=== PATIENT | male | born 1955 | race Caucasian/White ===

== ENCOUNTER 2016-07-28 09:18 | Outpatient (CLI) | payer OTHER ==
[~2016-07-28] VITALS: Ht 180.3 cm; Wt 95.5 kg
[~2016-07-28 09:18] MED LIST: ASP81TEC PO; ATOR40TA70 PO; ATR20T PO; BUPR300T PO; CALC-140 PO; CALCIUM + D PO; CHRO1000 PO; CINN1CAP2 PO; CINN500C7 PO; EZET10TA5 PO; FEXO1TAB42 PO; Fluticasone Propionate NS; HYDR1TAB PO; HYDR1TAB86 PO; MAGN400C PO; MTF500T PO; MULT-608 PO; NIAC500T8 PO; OMEG-59 PO; OMEG1CAP51 PO; POTA99TA15 PO; POTASSIUM OTC PO; PRAS10TA6 PO; RABE20TA PO; RANI300T4 PO; SIMV10TA3 PO; TICA90TA PO; VARE1TAB19 PO
[2016-07-28] MEDS ORDERED: MAGN250T13 PO (13:13)
[2016-07-28] MEDS ORDERED: METF500T4 PO (13:13)
[2016-07-28] MEDS ORDERED: MELA1TAB10 PO (13:13)
[2016-07-28] MEDS ORDERED: BUPR300T43 PO (13:13)
[2016-07-28] MEDS ORDERED: CETI10TA17 PO (13:13)
[2016-07-28] MEDS ORDERED: OMEP20TA7 PO (13:13)
[2016-07-28] MEDS ORDERED: FISH1CAP15 PO (13:13)
[2016-07-28] MEDS ORDERED: RT-ALBUINH IH (13:13)
== END 2016-07-28 13:24 ==
LOC: PREOP 09:18
PROVIDERS: ATTEND Surgery
DX: Z01.818 Encounter for other preprocedural examination (principal); Z85.118 Personal history of other malignant neoplasm of bronchus and lung

== ENCOUNTER 2016-07-31 10:29 | Day surgery (SDC) | payer OTHER ==
[~2016-07-31] VITALS: Ht 180.3 cm; Wt 95.5 kg
[~2016-07-31 10:29] MED LIST changes: +BUPR300T43 PO; +CETI10TA17 PO; +FISH1CAP15 PO; +MAGN250T13 PO; +MELA1TAB10 PO; +METF500T4 PO; +OMEP20TA7 PO; +RT-ALBUINH IH
[2016-07-31 10:33] VITALS: BP 122/82
[2016-07-31] MEDS ORDERED: CATHETER FLUSH 10 ML SYR IV PRN (11:00)
[2016-07-31] MEDS ORDERED: ceFAZolin 2 GM/NS 50 ML IV ONE (11:00)
[2016-07-31] MEDS ORDERED: LACTATED RINGERS 1,000 ML IV PRN (11:06)
[2016-07-31] MEDS ORDERED: MIDAZOLAM 2 MG/2 ML (VERSED) VIAL ONE (11:48)
[2016-07-31] MEDS ORDERED: ONDANSETRON 4 MG/2 ML (SDV) Z0FRAN ONE (11:48)
[2016-07-31] MEDS ORDERED: proPOfol 200 MG/20 ML (DIPRIVAN) VIAL IV ONE (11:48)
[2016-07-31] MEDS ORDERED: fentaNYL INJECTION 100 MCG/2 ML AMP ONE (11:48)
[2016-07-31] MEDS ORDERED: LACTATED RINGERS 1,000 ML IV ONE (11:52)
[2016-07-31] MEDS ORDERED: LIDOCAINE PF 2% 10 ML (XYLOCAINE) AMP ONE (11:52)
--- NOTE | 2016-07-31 11:57 | Progress Note-Pre Operative ---
Pre-Operative Progress Note H&P Reviewed The H&P was reviewed, patient examined and no changes noted. Date H&P Reviewed: Jul 31, 2016 Time H&P Reviewed: 11:55 MILE CHOWDHURY DO Jul 31, 2016 11:57
[2016-07-31] MEDS ORDERED: LIDOCAINE/EPI 1%-1:100,000 (XYLOCAINE) 20ML ONE (11:59)
--- NOTE | 2016-07-31 12:36 | Progress Note-Post Operative ---
Post-Operative Progess Note Surgeon (s)/Political Organizer (s) Surgeon MILE CHOWDHURY DO Political Organizer: NONE Pre-Operative Diagnosis HX LUNG CA, Venous insufficiency Post-Operative Diagnosis Same Post-Op Procedure Note Date of Procedure: Jul 31, 2016 Name of Procedure Performed: Port removal Description of the Procedure: port removal Findings of the Procedure none Anesthesia Type IV sedation Estimated blood loss (mL): scant Specimen(s) collected/removed Port and catheter. MILE CHOWDHURY DO Jul 31, 2016 12:36
--- NOTE | 2016-07-31 12:38 | Discharge Inst-Surgical ---
Discharge Inst-Surgical Depart Medication/Instructions New, Converted or Re-Newed RX: Other Patient Instructions Follow up Appt: Make appointment for 1 week. [phone] Instructions: No strenuous activity. May shower in 24 hours, no tub bath or soaking. Use incentive spirometer at home as directed. No Smoking Skin/Wound Care: May remove band-aid in am 4/11 Symptoms to Report: Appetite Changes, Extremity Discoloration, Numbness/Tingling, Swelling Increased , Bleeding Excessive, Eyesight Changes, Pain Increased, Urine Color Change, Constipation(Persistent), Fever over 101 degree F, Pain/Pressure in chest, Urinating Difficulty, Cough Up/Vomit Blood, Heart Beat Irreg/Pounding, Pain/ Pressure in jaw, Vaginal Bleeding Increase, Cramps in feet or legs, Lightheadedness, Pain/Pressure in shoulder, Diarrhea(Persistent), Memory Changes Suddenly, Questions/Concerns, Weight gain consecutive days, Dizziness/ Fainting, Nausea/Vomiting, Shortness of Breath, Weight gain over 2 pounds If questions or concerns contact your physician Or seek help at emergency department. Activity Driving Instructions: You May Drive (not today) Diet Discharge Diet: No Restrictions If Any Problems/Questions/Issu: Contact Your Physician, Go to Emergency Room Skin/Wound Care Infection Signs and Symptoms: Increased Redness, Foul Odor of Wound, Increased Drainage, Skin Itchy or Has a Rash, Increased Swelling, Temperature Above 101 F Stitches/[place]/Dermabond Dis: Dermabond Ice Pack: Ice On and Off Site (as needed for pain) MILE CHOWDHURY DO Jul 31, 2016 12:38
[2016-07-31 13:05] VITALS: BP 97/63
[2016-07-31 13:40] VITALS: BP 112/72
[2016-07-31 13:50] VITALS: BP 112/72
--- NOTE | 2016-08-01 09:36 | OPERATIVE REPORT ---
PROCEDURE PHYSICIAN: MILE HERNANDEZ DATE OF PROCEDURE: 07/31/2016 PREOPERATIVE DIAGNOSIS: 1. Venous insufficiency. 2. History of lung cancer. POSTOPERATIVE DIAGNOSIS: 1. Venous insufficiency. 2. History of lung cancer. PROCEDURE: Removal of port. SURGEON: Dr. Hernandez SUSTAINMENT LOGISTICS ANALYST: None. ANESTHESIA: IV sedation. BLOOD LOSS: Scant. FLUIDS: Per anesthesia. SPECIMEN: Port and catheter. INDICATION FOR THE PROCEDURE: The patient is a 61-year-old male with a history of lung cancer. He had a port placed for venous insufficiency and long-term chemotherapy. He no longer needs that and wants this removed. FINDINGS: The patient had a port in the right anterior chest wall, tunneled up into the right internal jugular removed without any difficulty. PROCEDURE NOTE: After informed consent was obtained patient brought to the operating room, placed on the table in supine position. He was sterilely prepped and draped in the normal fashion. Local lidocaine used to infiltrate the skin above the port as well above the catheter and then made an incision with number 15 blade through the old scar down through skin into subcutaneous tissue, deepened down into the subcutaneous tissue with Bovie electrocautery. Able to visualize the catheter grasped the catheter hemostat and then started dissecting out and then able to grasp a little bit more superior with another hemostat. Held this in place and then carefully started pulling the catheter out, gently pulling able to finally get the catheter completely out. Of note, apparently they had attach the catheter and cut off the distal end so that it started at 40 cm. Once this was removed then did a suture of 3-0 Vicryl [id number] to close off the tunnel from where the catheter was and then started dissecting out the port using Bovie electrocautery, going around removing the port and the capsule with it. Once this was removed, passed it off table, sent to pathologist. The area was then copiously irrigated with saline. Hemostasis obtained and then closed the deep tissue with a 3-0 Vicryl suture and then closed the skin with 4-0 undyed Monocryl 3 interrupted subcutaneous stitches. The area was clean and dried. Dermabond placed. As well as a bandage. The patient was then transferred to recovery room in stable condition. Sponge, needle counts were correct at the end of the case. Job ID: [id number] Dictated Date: 07/31/2016 12:41:20 Heel Seat Pounder Date: 08/01/2016 09:28:41 / marina
== END 2016-07-31 13:50 | disposition home or self-care (01) ==
LOC: SDC 10:29
PROVIDERS: ATTEND Surgery
DX: I87.2 Venous insufficiency (chronic) (peripheral) (principal); Z85.118 Personal history of other malignant neoplasm of bronchus and lung; E11.9 Type 2 diabetes mellitus without complications; Z11.2 Encounter for screening for other bacterial diseases
CPT/HCPCS: 82962; 87081

== ENCOUNTER → 2016-09-21 | Outpatient (CLI) | payer OTHER ==
[~2016-09-21] MED LIST changes: +ATOR80TA76 PO; +CALC-694 PO; +FLUT16SP22 NSEACH; +NAPH15DR62 OU; +OMEG-109 PO
--- NOTE | 2016-09-22 19:41 | ECHOCARDIOGRAPHY REPORT ---
DATE OF SERVICE: 09/21/2016 ECHOCARDIOGRAPHY ORDERING PHYSICIAN: Dr. Serna. PRIMARY PHYSICIAN: Dr. Robles. CLINICAL DIAGNOSES: Coronary artery disease, diabetes, shortness of breath, palpitations. MEASUREMENTS: Aortic root 3.8. Left atrium 3. LV diameter diastolic 4.3. IVS thickness, diastolic 0.8. LVPW thickness, diastolic 1.1. DESCRIPTION: Two-dimensional echocardiography shows normal global left ventricular systolic function. No distinct regional wall motion abnormalities seen. Aortic, mitral and tricuspid valve leaflets show good leaflet excursion. There is no significant pericardial effusion. Doppler imaging shows trivial tricuspid regurgitation. There is no Doppler evidence of significant valvular stenosis. Pulmonary artery systolic pressure is estimated to be approximately 20 mmHg. CONCLUSIONS: 1. Normal global left ventricular systolic function with an ejection fraction approximately 60%. 2. Trivial tricuspid regurgitation. 3. No evidence of any significant valvular stenosis. 4. Pulmonary artery systolic pressure is estimated at approximately 20 mmHg. Job ID: [id number] DocumentID: [id number] Dictated Date: 09/22/2016 14:05:55 Talent Acquisition Partner Date: 09/22/2016 15:22:59 Dictated By: DELBERT SERNA MD, MA, FACP, FACC,
== END ==
LOC: CARD 13:34
PROVIDERS: ATTEND Internal Medicine Cardiovascular Disease
DX: I25.10 Atherosclerotic heart disease of native coronary artery without angina pectoris (principal); E13.9 Other specified diabetes mellitus without complications; Z87.891 Personal history of nicotine dependence; E78.4 Other hyperlipidemia; R06.02 Shortness of breath; C34.32 Malignant neoplasm of lower lobe, left bronchus or lung; R00.2 Palpitations
CPT/HCPCS: 93225; 93226; 93306

== ENCOUNTER 2017-12-31 13:17 | Observation (INO) | payer OTHER ==
[~2017-12-31] VITALS: Ht 180.3 cm; Wt 100.4 kg
[2017-12-31] VITALS (13 sets, daily range): BP systolic 104–132; BP diastolic 67–92
[~2017-12-31 13:17] MED LIST changes: +FLUT16SP22 NS; -FLUT16SP22 NSEACH; +METF-397 PO; -METF500T4 PO
--- NOTE | 2017-12-31 13:40 | ED Neurological Problem ---
General Chief Complaint: Neuro-Stroke Like Symptoms Stated Complaint: STROKE SYMPTOMS Source: patient, EMS Exam Limitations: no limitations History of Present Illness Date Seen by Provider: Dec 31, 2017 Time Seen by Provider: 13:34 Initial Comments Last known well time was 10:15 this morning. He began to feel like he was very drunk likely been on a kitchen all week although he has not drank in the last for 5 days. He says he usually has a few drinks a week. He also had some stuttering and slurring of speech stumbling around and being very off balance. He has a history of stroke as well as heart attacks in the last for 5 years. No residual deficits. His symptoms began to improve by the time EMS arrived. He took a friend to the doctor's office and his friend reported to EMS that he had passed out multiple times while at the doctor's office. He's having a small amount of substernal chest pain he rates as a 0 out of 10 and called discomfort. He's having no nausea shortness of breath chills. He does have a productive cough no worse than usual. He is a smoker still smoking about half a pack of cigarettes per day. Denies diabetes. No headache blurry vision or double vision. EMS says his blood sugar was normal. No report of facial asymmetry per EMS. Allergies and Home Medications Allergies Coded Allergies: celery (Unverified Allergy, Unknown, 07/28/16) clopidogrel (Verified Adverse Reaction, Unknown, NAUSEA, 07/28/16) ticagrelor (Verified Adverse Reaction, Unknown, NAUSEA, 07/28/16) Home Medications Albuterol Sulfate 6.7 Gm Hfa.aer.ad, 2 PUFF IH TID PRN for SHORTNESS OF BREATH, (Reported) Aspirin 81 Mg Tabec, 81 MG PO DAILY, (Reported) Atorvastatin Calcium 80 Mg Tablet, 40 MG PO HS, (Reported) Bupropion HCl 300 Mg Tab.er.24h, 300 MG PO DAILY, (Reported) Calcium Carbonate/Vitamin D3 1 Each Tablet, 1 TAB PO BID, (Reported) Cetirizine HCl 10 Mg Tablet, 10 MG PO DAILY, (Reported) Fluticasone Propionate 16 Gm [place].susp, 1 SPRAY NSEACH DAILY, (Reported) Magnesium Oxide 250 Mg Tablet, 250 MG PO DAILY, (Reported) Melatonin/Pyridoxine 1 Each Tablet, 3 MG PO HS, (Reported) Naphazoline HCl/Pheniramine 15 Ml Drops, 1 DROP OU DAILY, (Reported) Nikolai-3 Fatty Acids/Fish Oil 1 Each Capsule, 2,400 MG PO BID, (Reported) TAKES 2 (1,200 MG) CAPSULES Omeprazole 20 Mg Tablet.dr, 20 MG PO BID, (Reported) Potassium Gluconate 99 Mg Tablet, 99 MG PO HS, (Reported) Patient Home Medication List Home Medication List Reviewed: Yes Review of Systems Review of Systems Constitutional: No chills, No fever Eyes: Denies Blindness, Denies Blurred Vision, Denies Drainage Ears, Nose, Mouth, Throat: denies ear pain, denies ear discharge Respiratory: cough; No phlegm, No short of breath, No wheezing Cardiovascular: No chest pain, No Hx of Intervention, No palpitations; syncope Gastrointestinal: No abdominal pain, No constipation, No diarrhea Genitourinary: No decreased output, No discharge, No dysuria Musculoskeletal: No back pain, No joint pain Skin: No pruritus, No rash Past Gvxmrhr-Iyikxk-Kqbfhi Hx Patient Social History Alcohol Use: Occasionally Uses (last drink was 3 days ago) Alcohol Beverage of Choice: Wine Recreational Drug Use: No Smoking Status: Current Everyday Smoker Type Used: Cigarettes (0.5 ppd) Recent Hopitalizations: No Immunizations Up To Date Date of Pneumonia Vaccine: Jan 31, 2016 Date of Influenza Vaccine: Jan 31, 2016 Seasonal Allergies Seasonal Allergies: Yes Past Medical History Coronary Stent Emphysema Coronary Artery Disease, High Cholesterol Stroke Reproductive Disorders: No Sexually Transmitted Disease: No HIV/AIDS: No Gastroesophageal Reflux Arthritis, Chronic Back Pain Diabetes, Non-Insulin dep Loss of Vision: Denies Hearing Impairment: Denies Lung Depression Adverse Reaction/Blood Tranf: No Family Medical History FH: emphysema 19 FATHER FH: lung cancer 19 FATHER FH: ovarian cancer G8 SISTER Neuroblastoma G8 SISTER Quadrupal cardiac bipass 19 FATHER Heart Disease, Cancer Physical Exam Vital Signs Vital Signs - First Documented 12/31/17 13:20 Temp 98.0 Pulse 84 Resp 18 B/P (MAP) 117/84 (95) Pulse Ox 96 O2 Delivery Room Air Capillary Refill : Height, Weight, BMI Height: 5'11.00" Weight: 207lbs. 0.0oz. 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, no motor/sensory deficits, alert, normal mood/affect, oriented x 3 Crainal Nerves: normal hearing, PERRL, abnormal speech (stutter and word searching) Coordination/Gait: normal finger to nose Motor/Sensory: no motor deficit, sensory deficit (chronic peripheral neuropathy bilateral lower extremities but still with the ability to detect touch is that patient 5) Skin: normal color, warm/dry Stroke Onset of Symptoms Date of Onset of Symptoms: Dec 31, 2017 Time of Symptom Onset: 10:15 Onset of Symptoms: Yes Symptoms onset unknown: No NIH Stroke Scale Assessment Select: Initial Level of Consciousness: 0=Alert (0), Level of Consciousness- Questions: 0=Answers both month/age (0), LOC Commands: 0=Performs both tasks (0) , Gaze: Normal (0), Visual Guy: 0=No visual loss (0), Facial Movement ( Facial Paresis): 0=Normal symmetrical mnt (0), Motor Function-Arms Right: 0=No drift (0), Motor Function-Arms Left: 0=No drift (0), Motor Function-Legs Right: 0=No drift (0), Motor Function-Legs Left: 0=No drift (0), Limb Ataxia: 0=Absent (0), Sensory: 0=Normal:no loss (0), Best Language: 0=No aphasia (0), Dysarthria : 1=Mild to moderate loss stutters (1), Extinction & Inattention: 0=No abnormality (0), Total: 1 Stroke Thrombolytic Exclusion Age 18 or Over: Yes Acute intenal hemorrhage: No History of CVA: Yes Uncontrolled Coagulation Defec: No Intracranial Hemorrhage: No Severe Hypertension: No GI or Bleed: No Subarachnoid Hemorrhage: No Intracranial Neoplasm/Aneurysm: No Oral Anticoagulants: No Surgery or Trauma: No Puncture of Non-Compressible V: No Recent CPR: No Diabetic Hemorrhagic Retinopat: No Organ Biopsy: No Recent Obstetric Delivery: No Glucose: No Significant Hepatic Dysfunctio: No NIH Stoke Scale >22: No Bacterial Endocarditis: No Pericarditis: No Improving Symptoms: Yes Platelets: No TPA Contraindication: Yes (improving symptoms) IV - TPa Received IV - TPa Procedure Performed?: No Progress/Results/Core Measures Results/Orders Lab Results Laboratory Tests Test 12/31/17 13:20 12/31/17 13:47 Range/Units White Blood Count 9.3 4.3-11.0 10^3/uL Red Blood Count 5.29 4.35-5.85 10^6/uL Hemoglobin 15.8 13.3-17.7 G/DL Hematocrit 47 40-54 % Mean Corpuscular Volume 88 80-99 FL Mean Corpuscular Hemoglobin 30 25-34 PG Mean Corpuscular Hemoglobin Concent 34 32-36 G/DL Red Cell Distribution Width 15.8 H 10.0-14.5 % Platelet Count 243 130-400 10^3/uL Mean Platelet Volume 11.1 H 7.4-10.4 FL Neutrophils (%) (Auto) 55 42-75 % Lymphocytes (%) (Auto) 32 12-44 % Monocytes (%) (Auto) 9 0-12 % Eosinophils (%) (Auto) 3 0-10 % Basophils (%) (Auto) 1 0-10 % Neutrophils # (Auto) 5.1 1.8-7.8 X 10^3 Lymphocytes # (Auto) 3.0 1.0-4.0 X 10^3 Monocytes # (Auto) 0.9 0.0-1.0 X 10^3 Eosinophils # (Auto) 0.3 0.0-0.3 10^3/uL Basophils # (Auto) 0.1 0.0-0.1 10^3/uL Prothrombin Time 12.5 12.2-14.7 SEC INR Comment 0.9 0.8-1.4 Activated Partial Thromboplast Time 25 24-35 SEC D-Dimer < 0.27 0.00-0.49 UG/ML Sodium Level 140 135-145 MMOL/L Potassium Level 4.2 3.6-5.0 MMOL/L Chloride Level 107 98-107 MMOL/L Carbon Dioxide Level 25 21-32 MMOL/L Anion Gap 8 5-14 MMOL/L Blood Urea Nitrogen 13 7-18 MG/DL Creatinine 1.14 0.60-1.30 MG/DL Estimat Glomerular Filtration Rate > 60 BUN/Creatinine Ratio 11 Glucose Level 134 H 70-105 MG/DL Calcium Level 9.3 8.5-10.1 MG/DL Corrected Calcium 9.2 8.5-10.1 MG/DL Total Bilirubin 0.3 0.1-1.0 MG/DL Aspartate Amino Transf (AST/SGOT) 21 5-34 U/L Alanine Aminotransferase (ALT/SGPT) 25 0-55 U/L Alkaline Phosphatase 131 40-136 U/L Troponin I < 0.30 <0.30 NG/ML Total Protein 7.2 6.4-8.2 GM/DL Albumin 4.1 3.2-4.5 GM/DL Glucometer 149 H 70-110 MG/DL My Orders Orders - MARIO HERNANDEZ Cbc With Automated Diff (12/31/17 13:32) Protime With Inr (12/31/17 13:32) Partial Thromboplastin Time (12/31/17 13:32) Comprehensive Metabolic Panel (12/31/17 13:32) Fibrin Degradation Products (12/31/17 13:32) Troponin I (12/31/17 13:32) Ua Culture If Indicated (12/31/17 13:32) Chest 1 View, Ap/Pa Only (12/31/17 13:32) Ekg Tracing (12/31/17 13:32) Nothing By Mouth (12/31/17 Dinner) Accucheck Stat ONCE (12/31/17 13:32) Saline Lock/Iv-Start (12/31/17 13:32) Saline Lock/Iv-Start (12/31/17 13:32) Vital Signs Stroke Patient Q15M (12/31/17 13:32) Ct Head Wo-R/O Stroke (12/31/17 13:32) O2 (12/31/17 13:32) Intake & Output 06,14,22 (12/31/17 13:32) Monitor-Rhythm Ecg Trace Only (12/31/17 13:32) Dysphagia Screening Tool (12/31/17 13:32) Lipid Panel (01/01/18 06:00) Ct Angio Head/Neck (12/31/17 14:42) Saline Lock/Iv-Start (12/31/17 14:42) Ns Iv 1000 Ml (Sodium Chloride 0.9%) (12/31/17 14:42) Iohexol Injection (Omnipaque 350 Mg/Ml 1 (12/31/17 14:45) Ns (Ivpb) (Sodium Chloride 0.9%) (12/31/17 14:45) Medications Given in ED Current Medications Medications Dose Ordered Sig/Elana Route Start Time Stop Time Status Last Admin Dose Admin Iohexol 75 ml ONCE ONCE IV 12/31/17 14:45 12/31/17 14:46 DC 12/31/17 14:51 75 ML Sodium Chloride 250 ml ONCE ONCE IV 12/31/17 14:45 12/31/17 14:46 DC 12/31/17 14:51 80 ML Vital Signs/I&O 12/31/17 12/31/17 13:20 14:15 Temp 98.0 Pulse 84 83 Resp 18 18 B/P (MAP) 117/84 (95) 123/92 Pulse Ox 96 95 O2 Delivery Room Air Progress Progress Note : Time: 15:17 Progress Note CBG 149 at the ER. NIH score is only 1 point. His new deficits seem to be the stuttering, some word searching and gait instability and syncopal episodes. EKG is unremarkable. CT of the head does not reveal any bleed. We'll talk to neurology about getting a CTA versus just going for MRI. Initial ECG Impression Date: Dec 31, 2017 Initial ECG Impression Time: 13:48 Initial ECG Rate: 87 Initial ECG Rhythm: Normal Sinus Initial ECG Intervals: Normal Initial ECG Impression: Normal Initial ECG Comparisson: No Previous ECG Available Comment No ST elevation or depression. Diagnostic Imaging Diagonstic Imaging: Xray Plain Films/CT/US/NM/MRI: chest (1v) Comments NAME: [facility] REC#: [id number] PHYSICIAN: MAIRO HERNANDEZ MD CC: ROCIO MEZA MD; MARIO HERNANDEZ Page 1 of 1 RADIOLOGY REPORT VIA [facility]. [place], [place] CC: ROCIO MEZA MD; MARIO HERNANDEZ Page 1 of 1 RADIOLOGY REPORT NAME: [facility] REC#: [id number] PT STATUS: REG ER : 1955 PHYSICIAN: MARIO HERNANDEZ MD ADMIT DATE: 12/31/17/ER Signed Date of Exam: 12/31/17 CHEST 1 VIEW, AP/PA ONLY INDICATION: Visual disturbance. Portable upright AP view of the chest is obtained. FINDINGS: Since 09/01/2014, there has been resolution of the nodular focus in the right upper lobe. There is air-trapping bilaterally. Prominent interstitial markings are seen in both lungs. There is no evidence of pneumothorax or focal consolidation. There appears to be surgical residue projecting over the right apex. IMPRESSION: Probable COPD without acute abnormality detected. Dictated by: Dictated on workstation # [id number] Dict: 12/31/17 134 Trans: 12/31/17 1354 Interpreted by: ROCIO MEZA MD Electronically signed by: ROCIO MEZA MD 12/31/17 1353 Reviewed: Reviewed by Me Diagonstic Imaging: CT Plain Films/CT/US/NM/MRI: head Comments VIA [facility]. [place], [place] NAME: [facility] REC#: [id number] PT STATUS: REG ER : 1955 PHYSICIAN: MARIO HERNANDEZ MD ADMIT DATE: 12/31/17/ER Draft Date of Exam:12/31/17 CT HEAD WO-R/O STROKE INDICATION: Decreased vision. No prior studies are available for comparison. The ventricles and sulci are within normal limits. No sulcal effacement, midline shift or hemorrhage is detected. The cisterns are patent. The visualized paranasal sinuses are clear. IMPRESSION: No acute intracranial process is detected. Dictated on workstation # [id number] Dict: 12/31/17 1345 Trans: 12/31/17 1351 [place] [id number] Interpreted by: PATRICE CASTREJON MD Electronically signed by: Reviewed: Reviewed by Me Consults : Consults Notes Neurology [facility] Dr. Stanley: Discussed case lab imaging findings and he states that a large watershed stroke is not likely however a CT angiogram may be helpful to rule out obstruction given the syncopal and speech area deficits that are new. After that if it's normal he would recommend admitting the patient and getting an MRI rule out if not then they would be happy to take the patient. Departure Communication (Admissions) Time/Spoke to Admitting Phy: 15:40 Discussed case lab imaging findings with Dr. Vaz and she agrees see the patient. She agrees with ICU placement. Impression Primary Impression: CVA (cerebral vascular accident) Qualified Codes: I63.9 - Cerebral infarction, unspecified Disposition: ADMITTED INPATIENT Condition: Stable Admissions Decision to Admit Reason: Admit from ER (General) Decision to Admit/Date: Dec 31, 2017 Time/Decision to Admit Time: 16:13 Departure-Patient Inst. Referrals: IRMA ROGER DO (PCP) Primary Care Physician JAYE RIGGS (Family) Primary Care Physician Copy Copies To 1: IRMA ROGER TITUS J Dec 31, 2017 13:40
--- NOTE | 2017-12-31 13:51 | Diagnostic Imaging Report ---
INDICATION: Decreased vision. No prior studies are available for comparison. The ventricles and sulci are within normal limits. No sulcal effacement, midline shift or hemorrhage is detected. The cisterns are patent. The visualized paranasal sinuses are clear. IMPRESSION: No acute intracranial process is detected. Dictated by: Dictated on workstation # [id number]
--- NOTE | 2017-12-31 13:51 | Diagnostic Imaging Report ---
INDICATION: Visual disturbance. Portable upright AP view of the chest is obtained. FINDINGS: Since 09/01/2014, there has been resolution of the nodular focus in the right upper lobe. There is air-trapping bilaterally. Prominent interstitial markings are seen in both lungs. There is no evidence of pneumothorax or focal consolidation. There appears to be surgical residue projecting over the right apex. IMPRESSION: Probable COPD without acute abnormality detected. Dictated by: Dictated on workstation # [id number]
[2017-12-31 13:56] LABS: BASOPHILS # (AUTO) 0.1 10^3/uL (0.0-0.1); BASOPHILS % (AUTO) 1 % (0-10); EOSINOPHILS # (AUTO) 0.3 10^3/uL (0.0-0.3); EOSINOPHILS % (AUTO) 3 % (0-10); HEMATOCRIT 47 % (40-54); HEMOGLOBIN 15.8 G/DL (13.3-17.7); LYMPHOCYTES % (AUTO) 32 % (12-44); MEAN CORPUSCULAR HEMOGLOBIN 30 PG (25-34); MEAN CORPUSCULAR HGB CONC 34 G/DL (32-36); MEAN CORPUSCULAR VOLUME 88 FL (80-99); MEAN PLATELET VOLUME 11.1 FL (7.4-10.4); MONOCYTES # (AUTO) 0.9 X 10^3 (0.0-1.0); MONOCYTES % (AUTO) 9 % (0-12); NEUTROPHILS # (AUTO) 5.1 X 10^3 (1.8-7.8); NEUTROPHILS % (AUTO) 55 % (42-75); PLATELET COUNT 243 10^3/uL (130-400); RED BLOOD COUNT 5.29 10^6/uL (4.35-5.85); RED CELL DISTRIBUTION WIDTH 15.8 % (10.0-14.5); WHITE BLOOD COUNT 9.3 10^3/uL (4.3-11.0)
[2017-12-31 14:08] LABS: ALANINE AMINOTRANSFERASE 25 U/L (0-55); ALBUMIN 4.1 GM/DL (3.2-4.5); ALKALINE PHOSPHATASE 131 U/L (40-136); BILIRUBIN,TOTAL 0.3 MG/DL (0.1-1.0); BUN/CREATININE RATIO 11; CALCIUM 9.3 MG/DL (8.5-10.1); CARBON DIOXIDE 25 MMOL/L (21-32); CHLORIDE 107 MMOL/L (98-107); CREATININE SERUM 1.14 MG/DL (0.60-1.30); GFR ESTIMATED > 60; GLUCOSE 134 MG/DL (70-105); POTASSIUM 4.2 MMOL/L (3.6-5.0); SODIUM 140 MMOL/L (135-145); TOTAL PROTEIN 7.2 GM/DL (6.4-8.2)
[2017-12-31 14:13] LABS: INR 0.9 (0.8-1.4); PARTIAL THROMBOPLASTIN TIME 25 SEC (24-35); PROTHROMBIN TIME PATIENT 12.5 SEC (12.2-14.7)
[2017-12-31 14:14] LABS: FIBRIN DEGRADATION PRODUCTS < 0.27 UG/ML (0.00-0.49)
[2017-12-31] MEDS ORDERED: PREGABALIN (14:16)
[2017-12-31] MEDS ORDERED: NS IV 1000 ML 1,000 ML IV SCH (14:42)
[2017-12-31] MEDS ORDERED: IOHEXOL 350 MG/ML 100 ML (OMNIPAQUE 350) VIAL IV ONE (14:45)
[2017-12-31] MEDS ORDERED: NS 250 ML (IVPB) BAG IV ONE (14:45)
--- OUTSIDE RECORDS SUMMARY | 2017-12-31 15:18 | XMS REPORT ---
Author Author JAYE RIGGS Organization [facility] Address [address] [place] [address] Care Team Providers Care Paralegal Specialist Name Role Phone JAYE RIGGS Unavailable PROBLEMS Type Condition ICD9-CM Code LGQ22-MM Code Onset Dates Condition Status SNOMED Code Problem Elevated white blood cell count, unspecified D72.829 Active 449992514 Problem Type 2 diabetes mellitus without complications E11.9 Active 718111626 Problem Essential (primary) hypertension I10 Active 34837125 Problem CAD (coronary artery disease) 414.00 Active 32028606 Problem Bilateral tinnitus H93.13 Active 6360027968284 Problem Controlled type 2 diabetes mellitus without complication, without long -term current use of insulin E11.9 Active 517576601 Problem Neuropathy G62.9 Active 554112420 Problem Atherosclerotic heart disease of [place] coronary artery without angina pectoris I25.10 Active 588338839271408 Problem Seasonal allergic rhinitis due to other allergic trigger J30.89 Active 025722640 Problem Type 2 diabetes mellitus with foot ulcer E11.621 Active 483050169 ALLERGIES Substance Reaction Event Type Date Status Brilinta Unknown Drug Allergy Jan, Active Plavix 75 Mg Tablet Unknown Non Drug Allergy Jan, Active ENCOUNTERS Encounter Location Date Diagnosis [facility] [id number] [place] [address] August, [facility] [address] [id number] [address] Jul, Controlled type 2 diabetes mellitus without complication, without long-term current use of insulin E11.9 ; Seborrheic keratoses L82.1 ; Bilateral tinnitus H93.13 and Seasonal allergic rhinitis due to other allergic trigger J30.89 [facility] [address] [id number] [id number] May, Encounter for dental examination Z01.20 [facility] [address] [id number] Jan, Encounter for dental examination Z01.20 [facility] [id number] [place] [address]- [address] 02 Jan, 2017 Type 2 diabetes mellitus without complications E11.9 and Acute non-recurrent maxillary sinusitis J01.00 [facility] [id number] [place] [id number] [address] Dec, Right ear impacted cerumen H61.21 and Acute suppurative otitis media of right ear without spontaneous rupture of tympanic membrane, recurrence not specified H66.001 [facility] [id number] [place] [address] 344072- 2859 Nov, Type 2 diabetes mellitus without complications E11.9 and Neuropathy G62.9 [facility] [id number] [place] [id number] Oct, Encounter for dental examination Z01.20 [facility] [id number] [place] [address] [id number] Jun, Dental examination Z01.20 [facility] [id number] [place] [address] 558206- 3[address] 16 Jun, 2016 Atherosclerotic heart disease of [place] coronary artery without angina pectoris I25.10 [facility] [id number] [place] [address]15- 1746 Jun, Atherosclerotic heart disease of [place] coronary artery without angina pectoris I25.10 [facility] [address] [place] [address]50- 7416 Jun, Type 2 diabetes mellitus without complications E11.9 [facility] [id number] [place] [address] [phone] May, Encounter for dental examination Z01.20 [facility] [id number] [place] [address] [phone] Apr, Dental caries K02.9 [facility] [address] [id number] Apr, Dental examination Z01.20 [place] [id number] [place] [address] 2546 08 Dec, 2015 Type 2 diabetes mellitus without complications E11.9 ; shelter current use of insulin Z79.4 ; Essential (primary) hypertension I10 and Elevated white blood cell count, unspecified D72.829 [place] [address] [address] Jul, Diabetes mellitus without mention of complication, type II or unspecified type, not stated as uncontrolled 250.[address] [address] Jul, [address] [address]46 Jan, Encounter for immunization Z23 [facility] [address] [id number] Dec, Dental examination V72.[address] [address] Nov, Cancer of lung, upper lobe 162.[address] [address]46 Sep, Lung cancer 162.9 ; CAD (coronary artery disease) 414.00 and Depression [id number] [place] [address] 2546 Jul, [place] [address] [address] Jul, [address] [address] Jun, [place] [address] [address] [address] Jun, [address] [address]- [address]47 Mar, [facility] [place] [facility] [address] [id number] [place] [address] Mar, [facility] [place] [facility] [address] [id number] [place] [address] 0094 Jan, [facility] [place] [facility] [address] [id number] [place] [address] 8088 Jan, [facility] [place] [facility] [address] [id number] [place] [address]- 32[address] Jan, [facility] [place] [facility] [address] [id number] [place] [address] 97[address] Jan, [facility] [place] [facility] [address] [id number] [place] [address]- 6253 Jan, [facility] [place] [facility] [address] [id number] [place] [address]- 8[address] Jan, [facility] [place] [facility] [address] [id number] [place] [address]- 6523 Dec, [facility] [place] [facility] [address] [id number] [place] [address]- 0940 Dec, [facility] [place] [facility] [address] [id number] [place] [address]- 7493 Oct, [facility] [place] [facility] [address] [id number] [place] [address]- 2374 Oct, [facility] [place] [facility] [address] [id number], [place] [address] Sep, [facility] [place] [facility] [address] [id number] [place] [address] 8143 Sep, [facility] [place] [facility] [address] [id number] [place] [address]- 55[address] August, [facility] [place] [facility] [address] [id number] [place] [address]- 7749 August, [facility] [place] [facility] [address] [id number] [place] [address]- 8078 August, [facility] [address] [id number] [place] [address]- 5785 August, [facility] [place] [facility] [address] [id number] [place] [address] August, [facility] [place] [facility] [address] [id number] [place] August, [facility] [place] [facility] [address] [id number] [place] [address]- 6168 Jun, [facility] [place] [facility] [address] [id number] [place] [address]- 3[address] Jun, [facility] [place] [facility] [address] [id number] [place] [address]- 2224 May, [facility] [place] [facility] [address] [id number] [place] [address]- 1809 May, [facility] [place] [facility] [address] [id number] [place] [address]- 2011 May, [facility] [place] [facility] [address] [id number] [place] [address]- 5489 May, [facility] [place] [facility] [address] [id number] [place] [address]- 8636 Apr, [facility] [place] [facility] [address] [id number] [place] [address]- 9842 Apr, [facility] [place] [facility] [address] [id number] [place] [address]- 6704 Mar, [facility] [place] [facility] [address] [id number] [place] [address]- 5752 Mar, [facility] [place] [facility] [address] [id number] [place] [address] Mar, [facility] [place] [facility] [address] [id number] [place] [address]- 9345 Mar, [facility] [place] [facility] [address] [id number] [place] [address]- 2542 Mar, [facility] [place] [facility] [address] [id number] [place] [address]- 8349 Mar, [facility] [place] [facility] [address] [id number] [place] [address]- 2541 Mar, [facility] [place] [facility] [address] [id number] [place] [address]- 2543 Mar, [facility] [place] [facility] [address] [id number] [place] [address]- 2547 Mar, [facility] [place] [facility] [address] [id number] [place] [address]- 3510 Feb, [facility] [place] [facility] [address] [id number] [place] [address]- 2969 Feb, [facility] [place] [facility] [address] [id number] [place] [address]- 9574 Jan, [facility] [place] [facility] [address] [id number] [place] [address]- 3653 Jan, [facility] [place] [facility] [address] [id number] [place] [address]- 8146 Jan, [facility] [place] [facility] [address] [id number] [place] [address]- 8575 Jan, [facility] [place] [facility] [address] [id number] [address]- 2540 Jan, [facility] [place] [facility] [address] [id number] [place] [address]- 2544 Dec, [facility] [place] [facility] [address] [id number] [place] [address]- 2546 Nov, [facility] [place] [facility] [address] [id number] [place] [address]- 2546 Nov, [facility] [place] [facility] [address] [id number][place] [address]- 8485 Nov, [facility] [address] [id number] [place] [address]- 4980 Oct, [facility] [address] [id number] [place] [address]- 0973 Oct, [facility] [address] [id number] [place] [address]- 8949 Sep, [facility] [address] [id number] [place] [address]- 6785 Sep, [facility] [address] [id number] [place] [address]- 5976 August, [facility] [address] [id number] [place] [address]- 1214 August, [facility] [address] [id number] [place] [address]- 2136 August, [facility] [address] [id number] [place] [address]- 1140 August, [facility] [address] [id number] [place] [address]- 5852 Jul, [facility] [address] [id number] [place] [address]- 1491 Jul, [facility] [address] [id number] [place] [address]- 1896 Jun, [facility] [place] [facility] [address] [id number] [place] [address]- 6650 May, [facility] [place] [facility] [address] [id number] [place] [address]- 6808 May, [facility] [place] [facility] [address] [id number] [place] [address]- 8120 18 May, 2012 [facility] [place] [facility] [address] [id number] [place] [address]- 7313 15 May, 2012 [facility] [place] [facility] [address] [facility] [id number][place] [address] May, [facility] [address] [facility] [id number], [place] [address]86 May, [facility] [address] [facility] [id number][place] [address] May, [facility] [address] [address] August, [facility] [address] [facility] [id number], [place] [address] Jul, [facility] [address] [address] Jul, [facility] [address] [address] May, [facility] [address] [address] 1286 May, [facility] [address] [address] Mar, [facility] [address] [address]666 Sep, [facility] [address] [address]66 Jul, [facility] [id number] [address]- [address]406 Mar, [facility] [id number] [address] Feb, [facility] [id number] [address]- 1296 Feb, IMMUNIZATIONS No Known Immunizations SOCIAL HISTORY Never Assessed REASON FOR VISIT Diabetes and f/u from an ear infection he was seen in walk in for. PT still has pressure and pain from guillermo Tate MA PLAN OF CARE VITAL SIGNS Height 71 in 2017-01-22 Weight 201 lbs 2017-01-22 Temperature 98.3 degrees Fahrenheit 2017-01-22 Heart Rate 74 bpm 2017-01-22 Respiratory Rate 18 2017-01-22 BMI 28.03 kg/m2 2017-01-22 Blood pressure systolic 112 mmHg 2017-01-22 Blood pressure diastolic 74 mmHg 2017-01-22 MEDICATIONS Medication Instructions Dosage Frequency Start Date End Date Duration Status Magnesium 300 MG Orally Once a day 1 capsule with a meal 24h Active Fish Oil + D3 1960-3143 MG-UNIT Orally twice a day 1 capsule 12h Active Metformin HCl 500 mg 1 tablet with meals 12h Active Calcium 1000 + D 1000-800 MG-UNIT Active Loratadine 10 MG Orally Once a day 1 tablet 24h Active Omeprazole 20 MG Orally Once a day 1 capsule 24h Active Lipitor 80 MG Orally Once a day 1 tablet 24h Active Neurontin 100 mg Orally 3 times a day 1 capsule 8h Nov, Active Amoxicillin 500 MG Orally every 8 hrs 1 capsule 8h Dec, Jan, 10 day(s) Active Flonase 50 MCG/ACT Nasally Once a day 1 spray in each nostril 24h Active Albuterol Sulfate HFA 108 (90 Base) MCG/ACT Inhalation every 4 hrs 2 puffs as needed 4h Active Wellbutrin XL 300 mg 1 tablet 24h Dec, Active Aspir-81 81 MG Orally Once a day 1 tablet 24h Active Augmentin 875-125 MG Orally every 12 hrs 1 tablet 12h Jan,Jan 10 day(s) Active Oxygen 2 LPM Active Lancets 1 Test 2 times per day DX: DM2 Oct, Active Blood Glucose Test Strip 1 as directed Jul, Active Multiple Vitamins 1 Tablet by Oral route 1 time per day Mar, Active PredniSONE 20 mg Orally Once a day 2 tablets 24h Jan, Jan, 05 days Active RESULTS Name Result Date Reference Range MICROALBUMIN, URINE (IN HOUSE) 2017-01-22 MICROALBUMIN normal Lot # [id number] Exp date 10/2017 Clarity clear Color yellow ALB 30 CRE 200 A:C (IN HOUSE) <30 Control normal Control Lot # Exp date PROCEDURES Procedure Date Ordered Result Body Site MICROALBUMIN, SEMIQUANT Jan 22, 2017 INSTRUCTIONS MEDICATIONS ADMINISTERED No Known Medications MEDICAL (GENERAL) HISTORY Type Description Date Medical History hypertension Medical History Diabetes Medical History Lung Cancer 2014, /chemo Medical 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
--- OUTSIDE RECORDS SUMMARY | 2017-12-31 15:18 | XMS REPORT ---
Author Author JASON MICHELE [facility] Address [address] [place] [address] Care Team Providers Care Human Relations Professor Name Role Phone LENY JASON Unavailable PROBLEMS Type Condition ICD9-CM Code NYN68-OM Code Onset Dates Condition Status SNOMED Code Problem Elevated white blood cell count, unspecified D72.829 Active 653915840 Problem CAD (coronary artery disease) 414.00 Active 36359511 Problem Type 2 diabetes mellitus with foot ulcer E11.621 Active 365450090 Problem Neuropathy G62.9 Active 722172654 Problem Type 2 diabetes mellitus without complications E11.9 Active 691538368 Problem Essential (primary) hypertension I10 Active 05690763 Problem Atherosclerotic heart disease of [place] coronary artery without angina pectoris I25.10 Active 686097524980912 Problem Encounter for dental examination Z01.20 Active 660077694 ALLERGIES Substance Reaction Event Type Date Status Brilinta Unknown Drug Allergy May, Active Plavix 75 Mg Tablet Unknown Non Drug Allergy May, Active SOCIAL HISTORY Never Assessed PLAN OF CARE Activity Details Follow Up First Available Reason:SRP VITAL SIGNS Heart Rate 62 bpm 2016-06-20 Blood pressure systolic 124 mmHg 2016-06-20 Blood pressure diastolic 74 mmHg 2016-06-20 MEDICATIONS Medication Instructions Dosage Frequency Start Date End Date Duration Status Fish Oil + D3 9422-0435 MG-UNIT Orally Three times a day 1 capsule 8h Active Flonase 50 MCG/ACT Nasally Once a day 1 spray in each nostril 24h Active Aspir-81 81 MG Orally Once a day 1 tablet 24h Active Prilosec 20 MG Orally Once a day 1 capsule 24h Active Magnesium 300 MG Orally Once a day 1 capsule with a meal 24h Active Metformin HCl 500 MG 1 tablet with meals 12h Active Lancets 1 Test 2 times per day DX: DM2 Oct, Active Loratadine 10 MG Orally Once a day 1 tablet 24h Active Albuterol Active Oxygen 2 LPM Active Lipitor 40 MG Orally Once a day 1 tablet 24h Active potassium 1 tab Active Calcium 1000 + D 1000-800 MG-UNIT Active Blood Glucose Test Strip 1 as directed Jul, Active Multiple Vitamins 1 Tablet by Oral route 1 time per day Mar, Active RESULTS No Results PROCEDURES Procedure Date Ordered Result Body Site COMP ORAL EVALUATION - NEW/EST PT Jun 20, 2016 INTRAORL-PERIAPICAL 1 FILM [id number] Jun 20, 2016 TOPICAL FLUORIDE VARNISH Jun 20, 2016 INTRAORL-PERIAPICAL EA ADD FILM Jun 20, 2016 INTRAORL-PERIAPICAL EA ADD FILM Jun 20, 2016 PANORAMIC FILM SEE ALSO CODE [id number] Jun 20, 2016 BITEWINGS - FOUR FILMS Jun 20, 2016 IMMUNIZATIONS No Known Immunizations MEDICAL (GENERAL) HISTORY Type Description Date Medical [...]
--- OUTSIDE RECORDS SUMMARY | 2017-12-31 15:19 | XMS REPORT ---
Author Author JAYE RIGGS Organization [facility] [place] Address [address] [place] [address] Care Team Providers Care Key Account Manager Name Role Phone JAYE RIGGS Unavailable PROBLEMS Type Condition ICD9-CM Code HVQ60-EV Code Onset Dates Condition Status SNOMED Code Problem Bilateral tinnitus H93.13 Active 3093425037441 Problem Seasonal allergic rhinitis due to other allergic trigger J30.89 Active 645009710 Problem Controlled type 2 diabetes mellitus without complication, without long -term current use of insulin E11.9 Active 655003626 Problem Type 2 diabetes mellitus with diabetic neuropathy, without long-term current use of insulin E11.40 Active 80566621 Problem Observed sleep apnea G47.30 Active 84015267 Problem Tinnitus of both ears H93.13 Active 8653385871886 Problem Tinnitus of left ear H93.12 Active 1475147917737 Problem Type 2 diabetes mellitus with other diabetic neurological complication E11.49 Active 73089570 Problem Type 2 diabetes mellitus with hyperglycemia E11.65 Active 401716361329997 Problem CAD (coronary artery disease) 414.00 Active 28205662 Problem Type 2 diabetes mellitus without complications E11.9 Active 592249283 Problem Atherosclerotic heart disease of [place] coronary artery without angina pectoris I25.10 Active 069840077367671 Problem Elevated white blood cell count, unspecified D72.829 Active 265384295 Problem Type 2 diabetes mellitus with foot ulcer E11.621 Active 359486509 Problem Essential (primary) hypertension I10 Active 03517440 Problem Neuropathy G62.9 Active 500533738 ALLERGIES Substance Reaction Event Type Date Status Brilinta rash, nausea, vomiting Drug Allergy Oct, Active Plavix rash, nausea, vomiting Drug Allergy Oct, Active ENCOUNTERS Encounter Location Date Diagnosis [facility] [place] [address] [facility] [id number] [address] Dec, [facility] [place] [address] [facility] [id number], [place] [address] Nov, Type 2 diabetes mellitus with diabetic neuropathy, without long-term current use of insulin E11.40 [place] [id number] Oct, Neuropathy G62.9 ; Type 2 diabetes mellitus with other diabetic neurological complication E11.49 ; Type 2 diabetes mellitus with hyperglycemia E11.65 ; Actinic keratoses L57.0 and Observed sleep apnea G47.[address] [address] Sep, Tinnitus of both ears H93.13 and Actinic keratitis, unspecified laterality H16.[address] [address] August, Type 2 diabetes mellitus without complications E11.9 and Controlled type 2 diabetes mellitus without complication, without long-term current use of insulin E11.[address] [address] August, Seborrheic keratoses L82.1 and Tinnitus of left ear H93.[address] [address] Jul, Controlled type 2 diabetes mellitus without complication, without long-term current use of insulin E11.9 ; Seborrheic keratoses L82.1 ; Bilateral tinnitus H93.13 and Seasonal allergic rhinitis due to other allergic trigger J30.89 [facility] [id number] [place] [id number] May, Encounter for dental examination Z01.20 [facility] [address] [id number] Jan, Encounter for dental examination Z01.[address] [address] Jan, Type 2 diabetes mellitus without complications E11.9 and Acute non-recurrent maxillary sinusitis J01.00 [facility] [address] [place], [place] [id number] Dec, Right ear impacted cerumen H61.21 and Acute suppurative otitis media of right ear without spontaneous rupture of tympanic membrane, recurrence not specified H66.001 [facility] [place] [address] [place] [address] Nov, Type 2 diabetes mellitus without complications E11.9 and Neuropathy G62.9 [facility] [id number] [place] [address] [id number] Oct, Encounter for dental examination Z01.20 [facility] [address] [id number] [place] [address] [id number] Jun, Dental examination Z01.20 [facility] [place] [id number] [place] [address]- [address] 16 Jun, 2016 Atherosclerotic heart disease of [place] coronary artery without angina pectoris I25.10 [facility] [place] [id number] [place] [address]- 4661 15 Jun, 2016 Atherosclerotic heart disease of [place] coronary artery without angina pectoris I25.10 [facility] [place] [address] [place] [address]- 0116 Jun, Type 2 diabetes mellitus without complications E11.9 [facility] [address] [place] [address] [id number] May, Encounter for dental examination Z01.20 [facility] [address] [place] [address] [id number] Apr, Dental caries K02.9 [facility] [address] [place] [address] [id number] 03 Apr, 2016 Dental examination Z01.20 [facility] [place] [address] [place] [address] 2546 08 Dec, 2015 Type 2 diabetes mellitus without complications E11.9 ; 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 ; Essential (primary) hypertension I10 and Elevated white blood cell count, unspecified D72.829 [facility] [place] [address] [address] Jul, Diabetes mellitus without mention of complication, type II or unspecified type, not stated as uncontrolled 250.00 [facility] [place] [id number] [place] [address]- [address] Jul, [facility] [place] [id number] [place] [address]- [address] Jan, Encounter for immunization Z23 [facility] [id number] [place] [address] [id number] Dec, Dental examination V72.2 [facility] [place] [id number] [place] [address]- [address] Nov, Cancer of lung, upper lobe 162.3 [facility] [place] [id number] [place] [address]- [address] Sep, Lung cancer 162.9 ; CAD (coronary artery disease) 414.00 and Depression 311 [facility] [place] [id number] [place] [address]- 97[address] Jul, [facility] [place] [address] [place] [id number] [place] [address]- 3048 Jul, [facility] [place] [address] [id number] [place] [address]- 9[address] Jun, [facility] [place] [id number] [place] [address] 8[address]26- 3680 Jun, [facility] [place] [id number] [place] [address]- 9175 Mar, [facility] [place] [id number] [place] [address]- [address] Mar, [facility] [place] [id number] [place] [address] 47951- 8517 Jan, [facility] [place] [address] [place] [address]- 5573 Jan, [facility] [place] [facility] [address] [id number] [place] [address]- 39[address] Jan, [facility] [place] [facility] [address] [id number] [place] [address]- 0841 Jan, [facility] [place] [facility] [address] [id number] [place] [address]- 2546 Jan, [facility] [place] [facility] [address] [id number] [place] [address]- 6990 Jan, [facility] [place] [facility] [address] [id number] [place] [address]- 3768 Dec, [facility] [place] [facility] [address] [id number] [place] [address]- 0152 Dec, [facility] [place] [facility] [address] [id number] [place] [address]- 0209 Oct, [facility] [place] [facility] [address] [id number] [place] [address]- 2311 Oct, [facility] [place] [facility] [address] [id number] [place] [address]- 6547 Sep, [facility] [place] [facility] [address] [id number] [place] [address]- 0177 Sep, [facility] [place] [facility] [address] [id number] [place] [address]- 9952 August, [facility] [place] [facility] [address] [id number] [place] [address]- 7314 August, [facility] [place] [facility] [address] [id number] [place] [address]- 0580 August, [facility] [place] [facility] [address] [id number] [place] [address]- 7672 August, [facility] [place] [facility] [address] [id number] [place] [address]- 2336 August, [facility] [place] [facility] [address] [id number] [place] [address]- 1101 August, [facility] [place] [facility] [address] [id number] [place] [address] Jun, [facility] [place] [facility] [address] [id number] [place] [address]- 3011 Jun, [facility] [place] [facility] [address] [id number] [place] [address] May, [facility] [place] [facility] [address] [id number] [place] [address]- 4681 May, [facility] [place] [facility] [address] [id number] [place] [address]- 4265 May, [facility] [place] [facility] [address] [id number] [place] [address]- 0693 May, [facility] [place] [facility] [address] [id number] [place] [address]- 8898 Apr, [facility] [place] [facility] [address] [id number] [place] [address]- 3601 Apr, [facility] [place] [facility] [address] [id number] [place] [address]- 6640 Mar, [facility] [place] [facility] [address] [id number] [place] [address]- 1356 Mar, [facility] [place] [facility] [address] [id number] [place] [address]- 0955 Mar, [facility] [place] [facility] [address] [id number], [place] [address]- 1921 Mar, [facility] [place] [facility] [address] [id number] [place] [address]- 7636 Mar, [facility] [place] [facility] [address] [id number] [place] [address]- 1009 Mar, [facility] [place] [facility] [address] [id number] [place] [address]- 6527 Mar, [facility] [place] [facility] [address] [id number] [place] [address]- 2546 Mar, [facility] [place] [facility] [address] [id number] [place] [address]- 2389 Mar, [facility] [place] [facility] [address] [id number] [place] [address]- 2546 Feb, [facility] [place] [facility] [address] [id number] [place] [address]- 2546 Feb, [facility] [place] [facility] [address] [id number] [place] [address] 2544 Jan, [facility] [place] [facility] [address] [id number] [place] [address]- 2691 Jan, [facility] [place] [facility] [address] [id number] [place] [address]- 9815 Jan, [facility] [place] [facility] [address] [id number] [place] [address]- 8918 Jan, [facility] [place] [facility] [address] [id number] [place] [address]- 1772 Jan, [facility] [place] [facility] [address] [id number] [place] [address]- 6521 Dec, [facility] [place] [facility] [address] [id number] [place] [address]- 2544 Nov, [facility] [place] [facility] [address] [id number] [place] [address]- 2546 Nov, [facility] [place] [facility] [address] [id number] [place] [address]- 2546 Nov, [facility] [place] [facility] [address] [id number] [place] [address]- 2546 Oct, [facility] [place] [facility] [address] [id number] [place] [address]- 2546 Oct, [facility] [place] [facility] [address] [id number] [place] [address]- 3711 Sep, [facility] [address] [id number] [place] [address]- 5442 Sep, [facility] [place] [facility] [address] [id number] [place] [address]- 6935 August, [facility] [address] [id number] [place] [address]85 August, [facility] [place] [facility] [address] [id number] [place] [address]- 7628 August, [facility] [address] [id number] [place] [address]- 4213 August, [facility] [place] [facility] [address] [id number] [place] [address]- 1810 16 Jul, 2012 [facility] [place] [facility] [address] [id number] [place] [address]- 5801 Jul, [facility] [place] [facility] [address] [id number], [place] [address]- 1775 Jun, [facility] [place] [facility] [address] [id number] [place] [address]- 9295 May, [facility] [place] [facility] [address] [id number] [place] [address]- 0092 May, [facility] [place] [facility] [address] [id number] [place] [address]- 5579 May, [facility] [place] [facility] [address] [id number], [place] [address]- 5373 15 May, 2012 [facility] [place] [facility] [address] [id number] [place] [address]- 7399 May, [facility] [place] [facility] [address] [id number] [place] [address]20 May, [facility] [place] [facility] [address] [id number] [place] [address]- 3486 May, [facility] [place] [facility] [address] [address]- 7796 August, [facility] [place] [address] [address]369 Jul, [facility] [place] [address] [address]129 Jul, [facility] [place] [address] [address]- 8096 May, [facility] [place] [id number] [place] [address] 396771- 0609 May, [facility] [place] [id number] [place] [address] 232174- 6232 Mar, [facility] [place] [address], [place] [address]- 0373 Sep, [facility] [place] [id number] [place] [address]- 1590 Jul, [facility] [place] [address] [address]- 1288 Mar, [facility] [place] [address], [place] [address]- 8532 Feb, [facility] [place] [address], [place] [address]- 2603 Feb, IMMUNIZATIONS No Known Immunizations SOCIAL HISTORY Never Assessed REASON FOR VISIT Lesion removal top of head and back CBrumbackRN PLAN OF CARE Activity Details Future/Pending Procedure CRYOTHERAPY OF SKIN Future/Pending Procedure SLEEP STUDY ([facility]) VITAL SIGNS Height 71 in 2017-11-06 Weight 214.3 lbs 2017-11-06 Temperature 98.2 degrees Fahrenheit 2017-11-06 Heart Rate 76 bpm 2017-11-06 Respiratory Rate 20 2017-11-06 BMI 29.89 kg/m2 2017-11-06 Blood pressure systolic 114 mmHg 2017-11-06 Blood pressure diastolic 82 mmHg 2017-11-06 MEDICATIONS Medication Instructions Dosage Frequency Start Date End Date Duration Status Singulair 10 mg Orally Once a day 1 tablet in the evening 24h Jul, 30 day(s) Active Albuterol Sulfate HFA 108 (90 Base) MCG/ACT Inhalation every 4 hrs 2 puffs as needed 4h Active Lyrica 75 MG Orally Three times a day 1 capsule 8h Sep, Active Loratadine 10 MG Orally Once a day 1 tablet 24h Not-Taking potassium Oral Once a day 1 tablet (500 mg) 24h Not-Taking Multiple Vitamins 1 Tablet by Oral route 1 time per day Mar, Active Oxygen 2 LPM Active Fish Oil + D3 4333-2545 MG-UNIT Orally twice a day 1 capsule 12h Active Lipitor 80 MG Orally Once a day 1 tablet 24h Active Lancets 1 Test 2 times per day DX: DM2 Oct, Active Paroxetine HCl 20 mg Orally Once a day 2 tablets 24h Sep, 30 day(s) Active Wellbutrin XL 300 mg 1 tablet 24h Dec, Active Flonase 50 MCG/ACT Nasally Once a day 2 sprays in each nostril 24h Active Calcium 1000 + D 1000-800 MG-UNIT Active Metformin HCl 500 MG Orally 2 times a day 2 tablets 12h 90 days Active Omeprazole 20 MG Orally Once a day 1 capsule 24h Active Aspir-81 81 MG Orally Once a day 1 tablet 24h Active Blood Glucose Test Strip 1 as directed Jul, Active Magnesium 300 MG Orally Once a day 1 capsule with a meal 24h Active RESULTS No Results PROCEDURES Procedure Date Ordered Result Body Site CRYOTHERAPY OF SKIN November 06, 2017 INSTRUCTIONS MEDICATIONS ADMINISTERED No Known Medications [...]
--- OUTSIDE RECORDS SUMMARY | 2017-12-31 15:19 | XMS REPORT ---
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 Chemical Processing Technician Name Role Phone JAYE RIGGS Unavailable PROBLEMS Type Condition ICD9-CM Code RCC23-BF Code Onset Dates Condition Status SNOMED Code Problem Bilateral tinnitus H93.13 Active 8629802648301 Problem Seasonal allergic rhinitis due to other allergic trigger J30.89 Active 608926621 Problem Controlled type 2 diabetes mellitus without complication, without long -term current use of insulin E11.9 Active 131395427 Problem Type 2 diabetes mellitus with diabetic neuropathy, without long-term current use of insulin E11.40 Active 85400866 Problem Observed sleep apnea G47.30 Active 96658425 Problem Tinnitus of both ears H93.13 Active 5188644954294 Problem Tinnitus of left ear H93.12 Active 8749880829020 Problem Type 2 diabetes mellitus with other diabetic neurological complication E11.49 Active 19207276 Problem Type 2 diabetes mellitus with hyperglycemia E11.65 Active 364882560739322 Problem CAD (coronary artery disease) 414.00 Active 52868229 Problem Type 2 diabetes mellitus without complications E11.9 Active 221374264 Problem Atherosclerotic heart disease of [place] coronary artery without angina pectoris I25.10 Active 055556248124803 Problem Elevated white blood cell count, unspecified D72.829 Active 866130506 Problem Type 2 diabetes mellitus with foot ulcer E11.621 Active 656440994 Problem Essential (primary) hypertension I10 Active 51990413 Problem Neuropathy G62.9 Active 270218794 ALLERGIES Substance Reaction Event Type Date Status Brilinta rash, nausea, vomiting Drug Allergy Sep, Active Plavix rash, nausea, vomiting Drug Allergy Sep, Active ENCOUNTERS Encounter Location Date Diagnosis [facility] [address] [facility] [id number] [address] Dec, [facility] [address] [facility] [id number], [place] [address] Nov, Type 2 diabetes mellitus with diabetic neuropathy, without long-term current use of insulin E11.40 [place] [id number] Oct, Neuropathy G62.9 ; Type 2 diabetes mellitus with other diabetic neurological complication E11.49 ; Type 2 diabetes mellitus with hyperglycemia E11.65 ; Actinic keratoses L57.0 and Observed sleep apnea G47.[address] [address] Sep, Tinnitus of both ears H93.13 and Actinic keratitis, unspecified laterality H16.[address] [address] August, Type 2 diabetes mellitus without complications E11.9 and Controlled type 2 diabetes mellitus without complication, without long-term current use of insulin E11.[address] [address] August, Seborrheic keratoses L82.1 and Tinnitus of left ear H93.[address] [address] Jul, Controlled type 2 diabetes mellitus without complication, without long-term current use of insulin E11.9 ; Seborrheic keratoses L82.1 ; Bilateral tinnitus H93.13 and Seasonal allergic rhinitis due to other allergic trigger J30.89 [facility] [id number] [place] [address] [phone] May, Encounter for dental examination Z01.20 [facility] [address] [id number] Jan, Encounter for dental examination Z01.[address] [address] Jan, Type 2 diabetes mellitus without complications E11.9 and Acute non-recurrent maxillary sinusitis J01.00 [facility] [address] [place], [place] [id number] Dec, Right ear impacted cerumen H61.21 and Acute suppurative otitis media of right ear without spontaneous rupture of tympanic membrane, recurrence not specified H66.001 [facility] [address] [place] [address]- [address] Nov, Type 2 diabetes mellitus without complications E11.9 and Neuropathy G62.9 [facility] [id number] [place] [address] [phone] Oct, Encounter for dental examination Z01.20 [facility] [id number] [place] [address] [id number] Jun, Dental examination Z01.20 [facility] [id number] [place] [address]- 290[address] 16 Jun, 2016 Atherosclerotic heart disease of [place] coronary artery without angina pectoris I25.10 [facility] [id number] [place] [address]- 409[address] 15 Jun, 2016 Atherosclerotic heart disease of [place] coronary artery without angina pectoris I25.10 [facility] [address] [place] [address]59- 20[address] Jun, Type 2 diabetes mellitus without complications E11.9 [facility] [address] [place] [address] [phone] May, Encounter for dental examination Z01.20 [facility] [address] [place] [address] [phone] Apr, Dental caries K02.9 [facility] [address] [place] [address] [phone] [id number] Apr, 2016 Dental examination Z01.20 [facility] [address] [place] [address] 2546 08 Dec, 2015 Type 2 diabetes mellitus without complications E11.9 ; 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 ; Essential (primary) hypertension I10 and Elevated white blood cell count, unspecified D72.829 [facility] [address], [place] [address] Jul, Diabetes mellitus without mention of complication, type II or unspecified type, not stated as uncontrolled 250.00 [facility] [id number] [place] [address] 26097- [address] Jul, [facility] [id number] [place] [address]- [address] Jan, Encounter for immunization Z23 [facility] [id number] [place] [address] [phone] Dec, Dental examination V72.2 [facility] [id number] [place] [address]- [address] Nov, Cancer of lung, upper lobe 162.3 [facility] [id number] [place] [address]37- [address] Sep, Lung cancer 162.9 ; CAD (coronary artery disease) 414.00 and Depression 311 [facility] [id number] [place] [address]- [address] Jul, [facility] [id number] [place] [address] 91578- 9598 Jul, [facility] [id number] [place] [address] 86728- 5[address] Jun, [facility] [id number] [place] [address] 09470- 1063 Jun, [facility] [id number] [place] [address] 24196- 6[address] Mar, [facility] [id number] [place] [address] 11161- 1004 Mar, [facility] [id number] [place] [address] 25981- 7[address] Jan, [facility] [address] [place] [address] 96394- [address] Jan, [facility] [place] [facility] [address] [id number] [place] [address] Jan, [facility] [place] [facility] [address] [id number] [place] [address] Jan, [facility] [place] [facility] [address] [id number] [place] [address]- 25[address] Jan, [facility] [place] [facility] [address] [id number] [place] [address]- 0186 Jan, [facility] [place] [facility] [address] [id number] [place] [address] Dec, [facility] [place] [facility] [address] [id number] [place] [address]- 3[address] Dec, [facility] [place] [facility] [address] [id number] [place] [address] Oct, [facility] [place] [facility] [address] [id number] [place] [address] 0613 Oct, [facility] [place] [facility] [address] [id number] [place] [address]- 4195 Sep, [facility] [place] [facility] [address] [id number] [place] [address]- 75[address] Sep, [facility] [place] [facility] [address] [id number] [place] [address]- 6[address] August, [facility] [place] [facility] [address] [id number] [place] [address]- 3[address] August, [facility] [place] [facility] [address] [id number] [place] [address] August, [facility] [place] [facility] [address] [id number] [place] [address]- 6[address] August, [facility] [place] [facility] [address] [id number] [place] [address]- 2622 August, [facility] [place] [facility] [address] [id number] [place] [address] 90[address] August, [facility] [place] [facility] [address] [id number] [place] [address] Jun, [facility] [place] [facility] [address] [id number] [place] [address]- 5204 Jun, [facility] [place] [facility] [address] [id number] [place] [address] May, [facility] [place] [facility] [address] [id number] [place] [address]- 2461 May, [facility] [place] [facility] [address] [id number] [place] [address]- 7054 May, [facility] [place] [facility] [address] [id number] [place] [address]- 4476 May, [facility] [place] [facility] [address] [id number] [place] [address]- 9068 Apr, [facility] [place] [facility] [address] [id number] [place] [address]- 2918 Apr, [facility] [place] [facility] [address] [id number] [place] [address]- 7947 Mar, [facility] [place] [facility] [address] [id number] [place] [address]- 0027 Mar, [facility] [place] [facility] [address] [id number] [place] [address]- 3369 Mar, [facility] [place] [facility] [address] [id number], [place] [address]- [address] Mar, [facility] [place] [facility] [address] [id number] [place] [address]- 4656 Mar, [facility] [place] [facility] [address] [id number] [place] [address]- 3182 Mar, [facility] [place] [facility] [address] [id number] [place] [address]- 2895 Mar, [facility] [place] [facility] [address] [id number] [place] [address]- 2546 Mar, [facility] [place] [facility] [address] [id number] [place] [address]- 4229 Mar, [facility] [place] [facility] [address] [id number] [place] [address]- 2546 Feb, [facility] [place] [facility] [address] [id number] [place] [address]- 2546 Feb, [facility] [place] [facility] [address] [id number] [place] [address] 2549 Jan, [facility] [place] [facility] [address] [id number] [place] [address]- 2579 Jan, [facility] [place] [facility] [address] [id number] [place] [address]- 6526 Jan, [facility] [place] [facility] [address] [id number] [place] [address]- 5913 Jan, [facility] [place] [facility] [address] [id number] [place] [address]- 4552 Jan, [facility] [place] [facility] [address] [id number] [place] [address]- 7519 Dec, [facility] [place] [facility] [address] [id number] [place] [address]- 2541 Nov, [facility] [place] [facility] [address] [id number] [place] [address]- 2546 Nov, [facility] [place] [facility] [address] [id number] [place] [address]- 2546 Nov, [facility] [place] [facility] [address] [id number] [place] [address]- 2546 Oct, [facility] [place] [facility] [address] [id number] [place] [address]- 2546 Oct, [facility] [place] [facility] [address] [id number] [place] [address]- 2595 Sep, [facility] [address] [id number] [place] [address]- 4717 Sep, [facility] [place] [facility] [address] [id number] [place] [address]- 8196 August, [facility] [address] [id number] [place] [address] August, [facility] [place] [facility] [address] [id number] [place] [address]- 9868 August, [facility] [address] [id number] [place] [address]- 7374 August, [facility] [place] [facility] [address] [id number] [place] [address]- 6972 16 Jul, 2012 [facility] [place] [facility] [address] [id number] [place] [address]- 8654 Jul, [facility] [place] [facility] [address] [id number], [place] [address]- 1040 Jun, [facility] [place] [facility] [address] [id number] [place] [address]- 7490 May, [facility] [place] [facility] [address] [id number] [place] [address]- 6519 May, [facility] [place] [facility] [address] [id number] [place] [address]- 8967 May, [facility] [place] [facility] [address] [id number], [place] [address]- 6480 15 May, 2012 [facility] [place] [facility] [address] [id number] [place] [address]- 4776 May, [facility] [place] [facility] [address] [id number] [place] [address] May, [facility] [place] [facility] [address] [id number] [place] [address]- 7216 May, [facility] [place] [facility] [address] [id number], [place] [address]- [address] August, [facility] [address], [place] [address]- 1765 Jul, [facility] [address], [place] [address]- 3766 Jul, [facility] [address] [address] May, [facility] [address] [address] May, [facility] [address] [place] [address] 529199- 6127 Mar, [facility] [address], [place] [address]- 3[address] Sep, [facility] [address] [place] [address] 77153- 3966 Jul, [facility] [address], [place] [address]- 0104 Mar, [facility] [address], [place] [address]- 3731 Feb, [facility] [id number], [place] [address]- 2995 Feb, IMMUNIZATIONS No Known Immunizations SOCIAL HISTORY Never Assessed REASON FOR VISIT Lesion removal from arms Bebeto [employer] PLAN OF CARE Activity Details Future/Pending Procedure CRYOTHERAPY OF SKIN VITAL SIGNS Height 71 in 2017-10-09 Weight 217.6 lbs 2017-10-09 Temperature 98.0 degrees Fahrenheit 2017-10-09 Heart Rate 78 bpm 2017-10-09 Respiratory Rate 20 2017-10-09 BMI 30.35 kg/m2 2017-10-09 Blood pressure systolic 108 mmHg 2017-10-09 Blood pressure diastolic 76 mmHg 2017-10-09 MEDICATIONS Medication Instructions Dosage Frequency Start Date End Date Duration Status Lipitor 80 MG Orally Once a day 1 tablet 24h Active Paroxetine HCl 20 mg Orally Once a day 1 tablet in the morning 24h Sep, 30 day(s) Active Albuterol Sulfate HFA 108 (90 Base) MCG/ACT Inhalation every 4 hrs 2 puffs as needed 4h Active Calcium 1000 + D 1000-800 MG-UNIT Active Magnesium 300 MG Orally Once a day 1 capsule with a meal 24h Active Flonase 50 MCG/ACT Nasally Once a day 2 sprays in each nostril 24h Active Lyrica 75 MG Orally Three times a day 1 capsule 8h Sep, Active Wellbutrin XL 300 mg 1 tablet 24h Dec, Active Singulair 10 mg Orally Once a day 1 tablet in the evening 24h Jul, 30 day(s) Active Oxygen 2 LPM Active Omeprazole 20 MG Orally Once a day 1 capsule 24h Active Blood Glucose Test Strip 1 as directed Jul, Active Multiple Vitamins 1 Tablet by Oral route 1 time per day Mar, Active Metformin HCl 500 MG Orally 2 times a day 1 tablet with meals 12h 90 days Active Fish Oil + D3 6017-6213 MG-UNIT Orally twice a day 1 capsule 12h Active Aspir-81 81 MG Orally Once a day 1 tablet 24h Active Loratadine 10 MG Orally Once a day 1 tablet 24h Not-Taking Lancets 1 Test 2 times per day DX: DM2 Oct, Active potassium Oral Once a day 1 tablet (500 mg) 24h Not-Taking RESULTS No Results PROCEDURES Procedure Date Ordered Result Body Site CRYOTHERAPY OF SKIN October 09, 2017 INSTRUCTIONS MEDICATIONS ADMINISTERED No Known Medications [...]
--- OUTSIDE RECORDS SUMMARY | 2017-12-31 15:19 | XMS REPORT ---
Author Author JAYE RIGGS Organization [facility] Address [address] [place] [address] Care Team Providers Care Sanitizer Name Role Phone JAYE RIGGS Unavailable PROBLEMS Type Condition ICD9-CM Code SQC98-KQ Code Onset Dates Condition Status SNOMED Code Problem Elevated white blood cell count, unspecified D72.829 Active 170003423 Problem Type 2 diabetes mellitus without complications E11.9 Active 956768092 Problem Essential (primary) hypertension I10 Active 37123241 Problem CAD (coronary artery disease) 414.00 Active 85628310 Problem Bilateral tinnitus H93.13 Active 6849583287067 Problem Controlled type 2 diabetes mellitus without complication, without long -term current use of insulin E11.9 Active 217314285 Problem Neuropathy G62.9 Active 769679950 Problem Atherosclerotic heart disease of [place] coronary artery without angina pectoris I25.10 Active 962570436145305 Problem Seasonal allergic rhinitis due to other allergic trigger J30.89 Active 669760861 Problem Type 2 diabetes mellitus with foot ulcer E11.621 Active 161960207 ALLERGIES Substance Reaction Event Type Date Status Brilinta Unknown Drug Allergy Nov, Active Plavix 75 Mg Tablet Unknown Non Drug Allergy Nov, Active ENCOUNTERS Encounter Location Date Diagnosis [facility] [id number] [place] [address]- [address] Jul, Controlled type 2 diabetes mellitus without complication, without long-term current use of insulin E11.9 ; Seborrheic keratoses L82.1 ; Bilateral tinnitus H93.13 and Seasonal allergic rhinitis due to other allergic trigger J30.89 [facility] [id number] [place] [phone] May, Encounter for dental examination Z01.20 [facility] [id number] [id number] Jan, Encounter for dental examination Z01.20 [facility] [address] [address] 02 Jan, 2017 Type 2 diabetes mellitus without complications E11.9 and Acute non-recurrent maxillary sinusitis J01.00 [facility] [address] [address] Dec, Right ear impacted cerumen H61.21 and Acute suppurative otitis media of right ear without spontaneous rupture of tympanic membrane, recurrence not specified H66.001 [facility] [address] [address] Nov, Type 2 diabetes mellitus without complications E11.9 and Neuropathy G62.9 [facility] [id number] [place] [address] [phone] Oct, Encounter for dental examination Z01.20 [facility] [id number] [place] [address] [id number] Jun, Dental examination Z01.20 [facility] [id number] [place] [address]- [address] 16 Jun, 2016 Atherosclerotic heart disease of [place] coronary artery without angina pectoris I25.10 [facility] [address] [address] Jun, Atherosclerotic heart disease of [place] coronary artery without angina pectoris I25.10 [facility] [address] [address] Jun, Type 2 diabetes mellitus without complications E11.9 [facility] [id number] [place] [address] [id number] May, Encounter for dental examination Z01.20 [facility] [id number] [place] [address] [id number] Apr, Dental caries K02.9 [facility] [id number] [place] [address] [id number] Apr, Dental examination Z01.20 [facility] [id number] [place] [address]- [address] 08 Dec, 2015 Type 2 diabetes mellitus without complications E11.9 ; penit[facility]iary current use of insulin Z79.4 ; Essential (primary) hypertension I10 and Elevated white blood cell count, unspecified D72.829 [address] [address] [id number] [place] [address]- [address] 29 Jul, 2015 Diabetes mellitus without mention of complication, type II or unspecified type, not stated as uncontrolled 250.[address] [place] [id number] [place] [address]- 3814 Jul, [address] [address] Jan, Encounter for immunization Z23 [facility] [address] [id number] Dec, Dental examination V72.2 [id number] [place] [address] Nov, Cancer of lung, upper lobe 162.3 [id number] [place] [address]- 6[address] Sep, Lung cancer 162.9 ; CAD (coronary artery disease) 414.00 and Depression [id number] [place] [address]69- 9478 Jul, [place] [id number] [place] [address]- 6[address] Jul, [place] [id number] [place] [address]74- [address] Jun, [place] [address] [address] 844000[address]67 Jun, [place] [id number] [place] [address] 17[address] Mar, [place] [id number] [place] [address]- 1283 Mar, [facility] [place] [facility] [address] [id number] [place] [address] Jan, [facility] [place] [facility] [address] [id number] [place] [address] Jan, [facility] [place] [facility] [address] [id number] [place] [address] 0118 Jan, [facility] [place] [facility] [address] [id number] [place] [address] 29[address] Jan, [facility] [place] [facility] [address] [id number] [place] [address] Jan, [facility] [place] [facility] [address] [id number] [place] [address] 8253 Jan, [facility] [place] [facility] [address] [id number] [place] [address]057 Dec, [facility] [place] [facility] [address] [id number] [place] [address] 1837 Dec, [facility] [place] [facility] [address] [id number] [place] [address]- 9314 Oct, [facility] [place] [facility] [address] [id number] [place] [address] Oct, [facility] [place] [facility] [address] [id number] [place] [address] Sep, [facility] [place] [facility] [address] [id number] [place] [address] 28[address] Sep, [facility] [place] [facility] [address] [id number] [place] [address] August, [facility] [place] [facility] [address] [id number] [place] [address]- 0136 August, [facility] [place] [facility] [address] [id number] [place] [address]- [address]87 August, [facility] [place] [facility] [address] [id number] [place] [address]- 8539 August, [facility] [address] [id number] [place] [address] 4[address] August, [facility] [place] [facility] [address] [id number] [place] [address] August, [facility] [place] [facility] [address] [id number] [place] [address] Jun, [facility] [place] [facility] [address] [id number] [place] [address]- 8966 Jun, [facility] [place] [facility] [address] [id number] [place] [address]- 1777 May, [facility] [place] [facility] [address] [id number] [place] [address] 8779 May, [facility] [place] [facility] [address] [id number] [place] [address]- 1018 May, [facility] [place] [facility] [address] [id number] [place] [address]- 7420 May, [facility] [place] [facility] [address] [id number] [place] [address]- 7313 Apr, [facility] [place] [facility] [address] [id number] [place] [address]- 1400 Apr, [facility] [place] [facility] [address] [id number] [place] [address]- 7666 Mar, [facility] [place] [facility] [address] [id number] [place] [address]- 3367 Mar, [facility] [place] [facility] [address] [id number] [place] [address] Mar, [facility] [place] [facility] [address] [id number] [place] [address] Mar, [facility] [place] [facility] [address] [id number] [place] [address]- 3810 Mar, [facility] [place] [facility] [address] [id number] [place] [address]- 2540 Mar, [facility] [place] [facility] [address] [id number] [place] [address]- 3885 Mar, [facility] [place] [facility] [address] [id number] [place] [address]- 2542 Mar, [facility] [place] [facility] [address] [id number] [place] [address]- 2545 Mar, [facility] [place] [facility] [address] [id number] [place] [address]- 3972 Feb, [facility] [place] [facility] [address] [id number] [place] [address]- 2543 Feb, [facility] [place] [facility] [address] [id number] [place] [address]- 1464 Jan, [facility] [place] [facility] [address] [id number] [place] [address]- 5794 Jan, [facility] [place] [facility] [address] [id number] [place] [address]- 7450 Jan, [facility] [place] [facility] [address] [id number] [place] [address]- 4798 Jan, [facility] [place] [facility] [address] [id number] [place] [address]- 9765 Jan, [facility] [place] [facility] [address] [id number] [address] 25[address] Dec, [facility] [place] [facility] [address] [id number] [place] [address]- 2545 Nov, [facility] [place] [facility] [address] [id number] [place] [address]- 2546 Nov, [facility] [place] [facility] [address] [id number] [place] [address]- 2546 Nov, [facility] [place] [facility] [address] [id number], [place] [address]- [address]77 16 Oct, 2012 [facility] [address] [id number] [place] [address]- 1743 Oct, [facility] [address] [id number] [place] [address]- 5540 Sep, [facility] [address] [id number] [place] [address]- 5805 Sep, [facility] [address] [id number] [place] [address]- 0759 August, [facility] [address] [id number] [place] [address]- 0719 August, [facility] [address] [id number] [place] [address]- 2908 August, [facility] [address] [id number] [place] [address]- 4087 August, [facility] [address] [id number] [place] [address]- 3250 Jul, [facility] [address] [id number] [place] [address]- 3703 Jul, [facility] [address] [id number] [place] [address]- 4702 Jun, [facility] [address] [id number] [place] [address]- 9217 May, [facility] [place] [facility] [address] [id number] [place] [address]- 1832 May, [facility] [place] [facility] [address] [id number] [place] [address] 18 May, 2012 [facility] [place] [facility] [address] [id number] [place] [address]- 9182 15 May, 2012 [facility] [place] [facility] [address] [id number] [place] [address]- 3392 13 May, 2012 [facility] [place] [facility] [address], [place] [address]- 2526 May, [facility] [address], [place] [address]- 0196 May, [facility] [address], [place] [address]- 2946 August, [facility] [address], [place] [address]- 260[address] Jul, [facility] [address], [place] [address]- [address] Jul, [facility] [id number] [place] [address] 44597- 0656 May, [facility] [address], [place] [address]- 0[address] May, [facility] [address] [place] [address]- 1061 Mar, [facility] [address], [place] [address]- 78[address] Sep, [facility] [address] [place] [address]- 86[address] Jul, [facility] [id number] [address]- 1436 Mar, [facility] [id number] [address]- 1485 Feb, [facility] [id number], [place] [address] 9[address] Feb, IMMUNIZATIONS No Known Immunizations SOCIAL HISTORY Never Assessed REASON FOR VISIT Kathy He PLAN OF CARE Activity Details Follow Up 4 Weeks Reason:diabetic neuropathy VITAL SIGNS Height 71 in 2016-12-11 Weight 203 lbs 2016-12-11 Temperature 98.0 degrees Fahrenheit 2016-12-11 Heart Rate 72 bpm 2016-12-11 Respiratory Rate 18 2016-12-11 BMI 28.31 kg/m2 2016-12-11 Blood pressure systolic 130 mmHg 2016-12-11 Blood pressure diastolic 72 mmHg 2016-12-11 MEDICATIONS Medication Instructions Dosage Frequency Start Date End Date Duration Status Wellbutrin XL 300 mg 1 tablet 24h Dec, Active Fish Oil + D3 1896-2578 MG-UNIT Orally twice a day 1 capsule 12h Active Aspir-81 81 MG Orally Once a day 1 tablet 24h Active Lipitor 80 MG Orally Once a day 1 tablet 24h Active Neurontin 100 mg Orally 3 times a day 1 capsule 8h Nov, Active Albuterol Sulfate HFA 108 (90 Base) MCG/ACT Inhalation every 4 hrs 2 puffs as needed 4h Active Blood Glucose Test Strip 1 as directed Jul, Active Multiple Vitamins 1 Tablet by Oral route 1 time per day Mar, Active Magnesium 300 MG Orally Once a day 1 capsule with a meal 24h Active Calcium 1000 + D 1000-800 MG-UNIT Active Oxygen 2 LPM Active Lancets 1 Test 2 times per day DX: DM2 Oct, Active Omeprazole 20 MG Orally Once a day 1 capsule 24h Active Loratadine 10 MG Orally Once a day 1 tablet 24h Active Metformin HCl 500 mg 1 tablet with meals 12h Active Flonase 50 MCG/ACT Nasally Once a day 1 spray in each nostril 24h Active RESULTS No Results PROCEDURES Procedure Date Ordered Result Body Site GLYCATED HEMOGLOBIN TEST Dec 11, 2016 INSTRUCTIONS MEDICATIONS ADMINISTERED No Known Medications MEDICAL [...]
--- OUTSIDE RECORDS SUMMARY | 2017-12-31 15:19 | XMS REPORT ---
Author Author JAYE RIGGS [facility] Address [address] [place] [address] Care Team Providers Care Cathead Worker Name Role Phone ONEIL JAYE Unavailable PROBLEMS Type Condition ICD9-CM Code VIG75-QV Code Onset Dates Condition Status SNOMED Code Problem Elevated white blood cell count, unspecified D72.829 Active 907199385 Problem CAD (coronary artery disease) 414.00 Active 36483624 Problem Type 2 diabetes mellitus with foot ulcer E11.621 Active 740766603 Problem Neuropathy G62.9 Active 664673712 Problem Type 2 diabetes mellitus without complications E11.9 Active 543080736 Problem Essential (primary) hypertension I10 Active 49303170 Problem Atherosclerotic heart disease of [place] coronary artery without angina pectoris I25.10 Active 751540362080048 Problem Encounter for dental examination Z01.20 Active 881278337 ALLERGIES Substance Reaction Event Type Date Status Brilinta Unknown Drug Allergy Jun, Active Plavix 75 Mg Tablet Unknown Non Drug Allergy Jun, Active SOCIAL HISTORY Never Assessed PLAN OF CARE VITAL SIGNS Height 71 in 2016-07-03 Weight 228.9 lbs 2016-07-03 Temperature 97.6 degrees Fahrenheit 2016-07-03 Heart Rate 76 bpm 2016-07-03 Respiratory Rate 18 2016-07-03 BMI 31.92 kg/m2 2016-07-03 Blood pressure systolic 130 mmHg 2016-07-03 Blood pressure diastolic 93 mmHg 2016-07-03 MEDICATIONS Medication Instructions Dosage Frequency Start Date End Date Duration Status potassium 1 tab Active Varenicline Tartrate 1 MG Orally Twice a day 1 tablet 12h Active Fish Oil + D3 5964-9769 MG-UNIT Orally Three times a day 1 capsule 8h Active Calcium 1000 + D 1000-800 MG-UNIT Active Flonase 50 MCG/ACT Nasally Once a day 1 spray in each nostril 24h Active Wellbutrin XL 300 mg 1 tablet 24h Dec, Active Lancets 1 Test 2 times per day DX: DM2 Oct, Active Blood Glucose Test Strip 1 as directed Jul, Active Albuterol Sulfate HFA 108 (90 Base) MCG/ACT Inhalation every 4 hrs 2 puffs as needed 4h Active Omeprazole 20 MG Orally Once a day 1 capsule 24h Active Aspir-81 81 MG Orally Once a day 1 tablet 24h Active Lipitor 80 MG Orally Once a day 1 tablet 24h Active Oxygen 2 LPM Active Magnesium 300 MG Orally Once a day 1 capsule with a meal 24h Active Metformin HCl 500 mg 1 tablet with meals 12h Active Loratadine 10 MG Orally Once a day 1 tablet 24h Active Multiple Vitamins 1 Tablet by Oral route 1 time per day Mar, Active RESULTS Name Result Date Reference Range A1C (IN HOUSE) 2016-07-03 A1C IN HOUSE 6.4 4.3 - 5.6 % Previous A1c 6.1 Lot [id number] Exp date PROCEDURES Procedure Date Ordered Result Body Site GLYCATED HEMOGLOBIN TEST July 03, 2016 IMMUNIZATIONS No Known Immunizations MEDICAL (GENERAL) [...]
--- OUTSIDE RECORDS SUMMARY | 2017-12-31 15:20 | XMS REPORT ---
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 Name Role Phone JAYE RIGGS Unavailable PROBLEMS Type Condition ICD9-CM Code XRO15-GH Code Onset Dates Condition Status SNOMED Code Problem Bilateral tinnitus H93.13 Active 3585468062174 Problem Seasonal allergic rhinitis due to other allergic trigger J30.89 Active 763466479 Problem Controlled type 2 diabetes mellitus without complication, without long -term current use of insulin E11.9 Active 520720517 Problem Type 2 diabetes mellitus with diabetic neuropathy, without long-term current use of insulin E11.40 Active 65953675 Problem Observed sleep apnea G47.30 Active 56911548 Problem Tinnitus of both ears H93.13 Active 0813612714553 Problem Tinnitus of left ear H93.12 Active 5492655572492 Problem Type 2 diabetes mellitus with other diabetic neurological complication E11.49 Active 71622246 Problem Type 2 diabetes mellitus with hyperglycemia E11.65 Active 365073052956754 Problem CAD (coronary artery disease) 414.00 Active 94863046 Problem Type 2 diabetes mellitus without complications E11.9 Active 562210985 Problem Atherosclerotic heart disease of grindstone coronary artery without angina pectoris I25.10 Active 237670948624855 Problem Elevated white blood cell count, unspecified D72.829 Active 552465883 Problem Type 2 diabetes mellitus with foot ulcer E11.621 Active 694766560 Problem Essential (primary) hypertension I10 Active 94509449 Problem Neuropathy G62.9 Active 391818042 ALLERGIES No Information ENCOUNTERS Encounter Location Date Diagnosis [facility] [place] [address] [facility] [id number] [address] Dec, [facility] [place] [address] [facility] [id number] [address] Nov, Type 2 diabetes mellitus with diabetic neuropathy, without long-term current use of insulin E11.40 [place] [id number] [place] [address]- 5983 Oct, Neuropathy G62.9 ; Type 2 diabetes mellitus with other diabetic neurological complication E11.49 ; Type 2 diabetes mellitus with hyperglycemia E11.65 ; Actinic keratoses L57.0 and Observed sleep apnea G47.30 [place] [address] [address] Sep, Tinnitus of both ears H93.13 and Actinic keratitis, unspecified laterality H16.139 [place] [id number] [place] [address] 77783- 7360 August, Type 2 diabetes mellitus without complications E11.9 and Controlled type 2 diabetes mellitus without complication, without long-term current use of insulin E11.9 [place] [id number] [place] [address]46- 8427 August, Seborrheic keratoses L82.1 and Tinnitus of left ear H93.12 [place] [address] [address] Jul, Controlled type 2 diabetes mellitus without complication, without long-term current use of insulin E11.9 ; Seborrheic keratoses L82.1 ; Bilateral tinnitus H93.13 and Seasonal allergic rhinitis due to other allergic trigger J30.89 [facility] [id number] [place] [address] [id number] May, Encounter for dental examination Z01.20 [facility] [id number] [place] [address] [id number] Jan, Encounter for dental examination Z01.20 [place] [address] [address]- [address]66 Jan, Type 2 diabetes mellitus without complications E11.9 and Acute non-recurrent maxillary sinusitis J01.00 [facility] [id number] [place] [address] Dec, Right ear impacted cerumen H61.21 and Acute suppurative otitis media of right ear without spontaneous rupture of tympanic membrane, recurrence not specified H66.001 [facility] [place] [id number] [place] [address] [id number]- 2824 Nov, Type 2 diabetes mellitus without complications E11.9 and Neuropathy G62.9 [facility] [address] [place] [address] [id number] Oct, Encounter for dental examination Z01.20 [facility] [id number] [place] [address] [id number] Jun, Dental examination Z01.20 [facility] [place] [id number] [place] [address] 523265- 7[address] 16 Jun, 2016 Atherosclerotic heart disease of grindstone coronary artery without angina pectoris I25.10 [facility] [place] [id number] [place] [address] 83932- 9566 15 Jun, 2016 Atherosclerotic heart disease of [place] coronary artery without angina pectoris I25.10 [facility] [place] [id number] [place] [address] 83724- 4826 Jun, Type 2 diabetes mellitus without complications E11.9 [facility] [id number] [place] [address] [phone] May, Encounter for dental examination Z01.20 [facility] [id number] [place] [address] [id number] Apr, Dental caries K02.9 [facility] [id number] [place] [address] [id number] Apr, Dental examination Z01.20 [facility] [place] [id number] [place] [address] 83289- 7723 Dec, Type 2 diabetes mellitus without complications E11.9 ; 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 ; Essential (primary) hypertension I10 and Elevated white blood cell count, unspecified D72.829 [facility] [place] [address] [address] Jul, Diabetes mellitus without mention of complication, type II or unspecified type, not stated as uncontrolled 250.00 [facility] [place] [address] [address] Jul, [facility] [place] [id number] [place] [address] 751988- 4627 Jan, Encounter for immunization Z23 [facility] [address] [id number] Dec, Dental examination V72.2 [facility] [place] [id number] [place] [address] 68417- 4499 Nov, Cancer of lung, upper lobe 162.3 [facility] [place] [id number] [place] [address] 38270- 1473 Sep, Lung cancer 162.9 ; CAD (coronary artery disease) 414.00 and Depression 311 [facility] [place] [id number] [place] [address] 16175- 6106 Jul, [facility] [place] [id number] [place] [address] 93361- 3731 Jul, [facility] [place] [id number] [place] [address] 09764- 6836 Jun, [facility] [place] [id number] [place] [address] 40900- 7783 Jun, [facility] [place] [address] [place] [address] 21984- 7744 Mar, [facility] [place] [address] [place] [address] 83688- 6739 Mar, [facility] [place] [id number] [place] [address] 71175- 4185 Jan, [facility] [place] [id number] [place] [address] [id number]- 4913 Jan, [facility] [place] [address] [place] [address] 85513- 1869 Jan, [facility] [place] [facility] [address] [id number] [place] [address]- 2546 Jan, [facility] [place] [facility] [address] [id number] [place] [address]- 2246 Jan, [facility] [place] [facility] [address] [id number] [place] [address]- 2546 Jan, [facility] [place] [facility] [address] [id number] [place] [address]- 2546 Dec, [facility] [place] [facility] [address] [id number] [place] [address]- 2546 Dec, [facility] [place] [facility] [address] [id number] [place] [address]- 2185 Oct, [facility] [place] [facility] [address] [id number] [place] [address]- 1556 Oct, [facility] [place] [facility] [address] [id number] [place] [address]- 6824 Sep, [facility] [place] [facility] [address] [id number] [place] [address]- 4463 Sep, [facility] [place] [facility] [address] [id number] [place] [address]- 9836 August, [facility] [place] [facility] [address] [id number] [place] [address]- 1006 August, [facility] [place] [facility] [address] [id number] [place] [address]- 7957 August, [facility] [place] [facility] [address] [id number] [place] [address]- 9348 August, [facility] [place] [facility] [address] [id number] [place] [address]- 2546 August, [facility] [place] [facility] [address] [id number] [place] [address]- 2546 August, [facility] [place] [facility] [address] [id number] [place] [address] 7047 Jun, [facility] [place] [facility] [address] [id number] [place] [address]- 8334 Jun, [facility] [place] [facility] [address] [id number] [place] [address]- 1991 May, [facility] [place] [facility] [address] [id number] [place] [address]- 4795 May, [facility] [place] [facility] [address] [id number] [place] [address]- 7223 May, [facility] [place] [facility] [address] [id number] [place] [address]- 5658 May, [facility] [place] [facility] [address] [id number] [place] [address]- 8134 Apr, [facility] [place] [facility] [address] [id number] [place] [address]- 8950 Apr, [facility] [place] [facility] [address] [id number] [place] [address]- 8410 Mar, [facility] [place] [facility] [address] [id number] [place] [address]- 3861 Mar, [facility] [place] [facility] [address] [id number] [place] [address]- 6421 Mar, [facility] [place] [facility] [address] [id number] [place] [address]- 0181 Mar, [facility] [place] [facility] [address] [id number] [place] [address]- 6850 Mar, [facility] [place] [facility] [address] [id number] [place] [address]- 5133 Mar, [facility] [place] [facility] [address] [id number] [place] [address]- 3477 Mar, [facility] [place] [facility] [address] [id number] [place] [address]- 2719 Mar, [facility] [place] [facility] [address] [id number] [place] [address]- 2546 Mar, [facility] [address] [id number] [place] [address]- 2406 Feb, [facility] [place] [facility] [address] [id number] [place] [address] 2546 Feb, [facility] [address] [id number] [place] [address]- 1996 Jan, [facility] [place] [facility] [address] [id number] [place] [address]- 2548 Jan, [facility] [address] [id number] [place] [address]- 6151 Jan, [facility] [place] [facility] [address] [id number] [place] [address]- 5182 Jan, [facility] [place] [facility] [address] [id number] [place] [address]- 1629 Jan, [facility] [address] [id number] [place] [address]- 5297 Dec, [facility] [place] [facility] [address] [id number] [place] [address]- 6595 Nov, [facility] [place] [facility] [address] [id number] [place] [address]- 4995 Nov, [facility] [place] [facility] [address] [id number] [place] [address]- 2546 Nov, [facility] [place] [facility] [address] [id number] [place] [address]- 2546 Oct, [facility] [place] [facility] [address] [id number] [place] [address]- 2542 Oct, [facility] [place] [facility] [address] [id number] [place] [address]- 2546 Sep, [facility] [place] [facility] [address] [id number] [place] [address]- 6076 Sep, [facility] [address] [id number] [place] [address]- 3667 August, [facility] [address] [id number] [place] [address]- 2956 August, [facility] [address] [id number] [place] [address]- 3826 August, [facility] [place] [facility] [address] [id number] [place] [address]- 1006 August, [facility] [address] [id number] [place] [address]- 0395 Jul, [facility] [place] [facility] [address] [id number] [place] [address]- 8326 Jul, [facility] [address] [id number] [place] [address]- 7178 Jun, [facility] [address] [id number] [place] [address]- 9389 May, [facility] [address] [id number] [place] [address]- 7380 May, [facility] [address] [id number] [place] [address]- 9846 May, [facility] [place] [facility] [address] [id number] [place] [address]- 3366 May, [facility] [place] [facility] [address] [id number] [address]- 4746 May, [facility] [place] [facility] [address] [id number] [place] [address]- 9596 May, [facility] [place] [facility] [address] [id number] [place] [address]- 6026 May, [facility] [place] [facility] [address] [id number] [place] [address]- 4626 August, [facility] [place] [facility] [id number] [address] 2546 Jul, [facility] [place] [address] [address]- 9[address] Jul, [facility] [place] [address] [address]- 2546 May, [facility] [place] [address] [address]- 2546 May, [facility] [place] [address] [address]- 2546 Mar, [facility] [place] [address] [address]- 2546 Sep, [facility] [place] [address] [address]- 2546 Jul, [facility] [place] [address] [address]- 2546 Mar, [facility] [place] [id number] [address] 2546 Feb, [facility] [place] [address] [address] 2546 Feb, IMMUNIZATIONS No Known Immunizations SOCIAL HISTORY Never Assessed REASON FOR VISIT PLAN OF CARE VITAL SIGNS MEDICATIONS Medication Instructions Dosage Frequency Start Date End Date Duration Status Neurontin 600 MG Orally 3 times a day 1 capsule 8h Nov, 30 days Active Metformin HCl 500 MG Orally 2 times a day 1 tablet with meals 12h 90 days Active RESULTS No Results PROCEDURES No Known procedures INSTRUCTIONS MEDICATIONS ADMINISTERED No Known Medications MEDICAL [...]
--- OUTSIDE RECORDS SUMMARY | 2017-12-31 15:20 | XMS REPORT ---
Author Author JAYE RIGGS Organization [facility] Address [address] [place] [address] Care Team Providers Care [facility] Insurance Representative Name Role Phone JAYE RIGGS Unavailable PROBLEMS Type Condition ICD9-CM Code CGC54-RA Code Onset Dates Condition Status SNOMED Code Problem Neuropathy G62.9 Active 123078524 Problem Seasonal allergic rhinitis due to other allergic trigger J30.89 Active 958923748 Problem Bilateral tinnitus H93.13 Active 3587425046513 Problem Type 2 diabetes mellitus with other diabetic neurological complication E11.49 Active 92814573 Problem Type 2 diabetes mellitus with hyperglycemia E11.65 Active 539968959496368 Problem Tinnitus of left ear H93.12 Active 6184119477608 Problem Controlled type 2 diabetes mellitus without complication, without long -term current use of insulin E11.9 Active 578650637 Problem Observed sleep apnea G47.30 Active 68143055 Problem Tinnitus of both ears H93.13 Active 9412748526314 Problem Essential (primary) hypertension I10 Active 56929809 Problem Type 2 diabetes mellitus without complications E11.9 Active 561820851 Problem CAD (coronary artery disease) 414.00 Active 22275553 Problem Atherosclerotic heart disease of [place] coronary artery without angina pectoris I25.10 Active 241259662275164 Problem Elevated white blood cell count, unspecified D72.829 Active 375458875 Problem Type 2 diabetes mellitus with foot ulcer E11.621 Active 565390184 ALLERGIES Substance Reaction Event Type Date Status Brilinta rash, nausea, vomiting Drug Allergy Jul, Active Plavix rash, nausea, vomiting Drug Allergy Jul, Active ENCOUNTERS Encounter Location Date Diagnosis [facility] [address] [facility] [id number] [address] Nov, [facility] [address] [facility] [id number], [place] [address] Oct, Neuropathy G62.9 ; Type 2 diabetes mellitus with other diabetic neurological complication E11.49 ; Type 2 diabetes mellitus with hyperglycemia E11.65 ; Actinic keratoses L57.0 and Observed sleep apnea G47.30 [place] [address] [address] [place] [id number] Sep, Tinnitus of both ears H93.13 and Actinic keratitis, unspecified laterality H16.139 [facility] [address] [address] August, Type 2 diabetes mellitus without complications E11.9 and Controlled type 2 diabetes mellitus without complication, without long-term current use of insulin E11.9 [place] [address] [address] August, Seborrheic keratoses L82.1 and Tinnitus of left ear H93.12 [place] [address] [address] Jul, Controlled type 2 diabetes mellitus without complication, without long-term current use of insulin E11.9 ; Seborrheic keratoses L82.1 ; Bilateral tinnitus H93.13 and Seasonal allergic rhinitis due to other allergic trigger J30.89 [facility] [address] [id number] May, Encounter for dental examination Z01.20 [facility] [address] [id number] Jan, Encounter for dental examination Z01.20 [facility] [address] [address] Jan, Type 2 diabetes mellitus without complications E11.9 and Acute non-recurrent maxillary sinusitis J01.00 [facility] [address] [address] Dec, Right ear impacted cerumen H61.21 and Acute suppurative otitis media of right ear without spontaneous rupture of tympanic membrane, recurrence not specified H66.001 [facility] [address] [address] Nov, Type 2 diabetes mellitus without complications E11.9 and Neuropathy G62.9 [facility] [address] [id number] Oct, Encounter for dental examination Z01.20 [facility] [id number] [place] [id number] Jun, Dental examination Z01.20 [facility] [address] [place] [id number] [place] [address] 16 Jun, 2016 Atherosclerotic heart disease of [place] coronary artery without angina pectoris I25.10 [facility] [address] [place] [id number] [place] [address] 15 Jun, 2016 Atherosclerotic heart disease of [place] coronary artery without angina pectoris I25.10 [facility] [address] [place] [id number] [place] [address] Jun, Type 2 diabetes mellitus without complications E11.9 [facility] [address] [place] [id number] [place] [address] [id number] May, Encounter for dental examination Z01.20 [facility] [address] [place] [id number] [place] [address] [id number] Apr, Dental caries K02.9 [facility] [address] [place] [id number] [place] [address] [id number] Apr, Dental examination Z01.20 [facility] [id number] [place] [address] Dec, Type 2 diabetes mellitus without complications E11.9 ; [facility] current use of insulin Z79.4 ; Essential (primary) hypertension I10 and Elevated white blood cell count, unspecified D72.829 [facility] [address] [place] [id number] [place] [id number] Jul, Diabetes mellitus without mention of complication, type II or unspecified type, not stated as uncontrolled 250.00 [facility] [address] [place] [id number] [place] [address] Jul, [facility] [address] [id number] [address] 07 Jan, 2015 Encounter for immunization Z23 [facility] [address] [id number] Dec, Dental examination V72.2 [facility] [address], [place] [address] Nov, Cancer of lung, upper lobe 162.3 [facility] [address] [place] [id number] [place] [address] Sep, Lung cancer 162.9 ; CAD (coronary artery disease) 414.00 and Depression 311 [facility] [id number] [place] [address] Jul, [facility] [address] [place] [id number] [place] [address] Jul, [facility] [address] [place] [id number] [place] [address] Jun, [facility] [id number] [place] [address] Jun, [facility] [address], [place] [address] Mar, [facility] [address], [place] [address] Mar, [facility] [address], [place] [address] Jan, [facility] [address], [place] [address] Jan, [facility] [address], [place] [address] Jan, [facility] [address] [address] Jan, [facility] [address] [place] [id number] [place] [address] [place] [address] Jan, [facility] [place] [facility] [address] [id number] [place] [address] Jan, [facility] [place] [facility] [address] [id number] [place] [address] Dec, [facility] [place] [facility] [address] [id number] [place] [address] Dec, [facility] [place] [facility] [address] [id number] [place] [address] Oct, [facility] [place] [facility] [address] [id number] [place] [address] Oct, [facility] [place] [facility] [address] [id number] [place] [address] 6[address] Sep, [facility] [place] [facility] [address] [id number] [place] [address] Sep, [facility] [place] [facility] [address] [id number] [place] [address] August, [facility] [place] [facility] [address] [id number] [place] [address] August, [facility] [place] [facility] [address] [id number] [place] [address] August, [facility] [place] [facility] [address] [id number] [place] [address] August, [facility] [place] [facility] [address] [id number] [place] [address] August, [facility] [place] [facility] [address] [id number] [place] [address] August, [facility] [place] [facility] [address] [id number] [place] [address]- 12[address] Jun, [facility] [place] [facility] [address] [id number] [place] [address]- [address] Jun, [facility] [place] [facility] [address] [id number] [place] [address]- 2[address] May, [facility] [place] [facility] [address] [id number] [place] [address]- 95[address] May, [facility] [place] [facility] [address] [id number] [place] [address]- [address] May, [facility] [place] [facility] [address] [id number] [place] [address]- 75[address] May, [facility] [place] [facility] [address] [id number] [place] [address]- 41[address] Apr, [facility] [place] [facility] [address] [id number] [place] [address]- 6[address] Apr, [facility] [address] [id number] [place] [address]- 6[address] Mar, [facility] [place] [facility] [address] [id number] [place] [address]- [address] Mar, [facility] [place] [facility] [address] [id number] [place] [address]- 1719 Mar, [facility] [place] [facility] [address] [id number] [place] [address]- 4834 Mar, [facility] [place] [facility] [address] [id number] [place] [address]- 360[address] Mar, [facility] [place] [facility] [address] [id number], [place] [address] Mar, [facility] [place] [facility] [address] [id number] [place] [address]- 7846 Mar, [facility] [place] [facility] [address] [id number] [place] [address]- 4993 Mar, [facility] [place] [facility] [address] [id number] [place] [address]- 5579 Mar, [facility] [place] [facility] [address] [id number] [place] [address]- 4610 Feb, [facility] [place] [facility] [address] [id number] [place] [address]- 2814 Feb, [facility] [place] [facility] [address] [id number] [place] [address]- 4508 Jan, [facility] [place] [facility] [address] [id number] [place] [address]- 68[address] Jan, [facility] [place] [facility] [address] [id number] [place] [address]- 3[address] Jan, [facility] [place] [facility] [address] [id number] [place] [address]- 5280 Jan, [facility] [place] [facility] [address] [id number] [place] [address]- 3525 Jan, [facility] [place] [facility] [address] [id number] [place] [address]- 5749 Dec, [facility] [place] [facility] [address] [id number] [place] [address]- 9177 Nov, [facility] [place] [facility] [address] [id number] [place] [address]- 9619 Nov, [facility] [place] [facility] [address] [id number] [place] [address]- 4844 Nov, [facility] [place] [facility] [address] [id number] [place] [address]- 2321 Oct, [facility] [place] [facility] [address] [id number] [place] [address]- 4083 Oct, [facility] [place] [facility] [address] [id number] [place] [address]- 9251 Sep, [facility] [place] [facility] [address] [id number] [place] [address]- 9515 Sep, [facility] [place] [facility] [address] [id number] [place] [address]- 5991 August, [facility] [place] [facility] [address] [id number] [place] [address]- 6[address] 17 Aug, 2012 [facility] [address] [id number] [place] [address]- 9862 August, [facility] [address] [id number] [place] [address]- 9829 August, [facility] [address] [id number] [place] [address]- 3[address] 16 Jul, 2012 [facility] [address] [id number] [place] [address]- 3005 Jul, [facility] [address] [id number] [place] [address]- 5357 Jun, [facility] [address] [id number] [place] [address]- 3119 May, [facility] [address] [id number] [place] [address]- 2551 May, [facility] [address] [id number] [place] [address]- 9296 May, [facility] [address] [id number] [place] [address]- 8515 May, [facility] [address] [facility] [id number] [place] [address]- 5990 May, [facility] [address] [id number] [place] [address]- 5082 May, [facility] [address] [id number] [place] [address]- 3738 May, [facility] [address] [id number] [place] [address]- 7551 August, [facility] [address] [id number] [place] [address]- 1694 23 Jul, 2011 [facility] [address] [id number], [place] [address]46 Jul, [facility] [address] [id number] [address] May, [facility] [address] [id number], [place] [address]- [address]36 May, [facility] [address] [id number], [place] [address]- [address] Mar, [facility] [address], [place] [address] 27[address] Sep, [facility] [address] [id number], [place] [address] Jul, [facility] [address], [place] [address]- [address] Mar, [facility] [address], [place] [address]- 1395 Feb, [facility] [address] [id number], [place] [address] 1864 Feb, IMMUNIZATIONS No Known Immunizations SOCIAL HISTORY Never Assessed REASON FOR VISIT Physical, Diabetes f/u, [employer] OF CARE VITAL SIGNS Height 71 in 2017-08-15 Weight 221.4 lbs 2017-08-15 Temperature 98.2 degrees Fahrenheit 2017-08-15 Heart Rate 88 bpm 2017-08-15 Respiratory Rate 20 2017-08-15 BMI 30.88 kg/m2 2017-08-15 Blood pressure systolic 112 mmHg 2017-08-15 Blood pressure diastolic 70 mmHg 2017-08-15 MEDICATIONS Medication Instructions Dosage Frequency Start Date End Date Duration Status Calcium 1000 + D 1000-800 MG-UNIT Active Oxygen 2 LPM Active Albuterol Sulfate HFA 108 (90 Base) MCG/ACT Inhalation every 4 hrs 2 puffs as needed 4h Active Fish Oil + D3 2053-0583 MG-UNIT Orally twice a day 1 capsule 12h Active Blood Glucose Test Strip 1 as directed Jul, Active Lancets 1 Test 2 times per day DX: DM2 Oct, Active Neurontin 300 MG Orally 3 times a day 1 capsule 8h Nov, Active Wellbutrin XL 300 mg 1 tablet 24h Dec, Active Magnesium 300 MG Orally Once a day 1 capsule with a meal 24h Active Metformin HCl 500 mg 1 tablet with meals 12h Active Omeprazole 20 MG Orally Once a day 1 capsule 24h Active Multiple Vitamins 1 Tablet by Oral route 1 time per day Mar, Active potassium Oral Once a day 1 tablet (500 mg) 24h Active Flonase 50 MCG/ACT Nasally Once a day 2 sprays in each nostril 24h Active Aspir-81 81 MG Orally Once a day 1 tablet 24h Active Singulair 10 mg Orally Once a day 1 tablet in the evening 24h Jul, 30 day(s) Active Lipitor 80 MG Orally Once a day 1 tablet 24h Active Loratadine 10 MG Orally Once a day 1 tablet 24h Active RESULTS No Results PROCEDURES Procedure Date Ordered Result Body Site GLYCATED HEMOGLOBIN TEST August 15, 2017 COMPREHEN METABOLIC PANEL August 15, 2017 LIPID PANEL August 15, 2017 ASSAY THYROID STIM HORMONE August 15, 2017 COMPLETE CBC W/AUTO DIFF WBC August 15, 2017 INSTRUCTIONS MEDICATIONS ADMINISTERED No Known Medications [...]
--- OUTSIDE RECORDS SUMMARY | 2017-12-31 15:20 | XMS REPORT ---
Author Author JAYE RIGGS Organization [facility] Address [address] [place] [address] Care Team Providers Care Ethics Instructor Name Role Phone JAYE RIGGS Unavailable PROBLEMS Type Condition ICD9-CM Code KYG47-GE Code Onset Dates Condition Status SNOMED Code Problem Neuropathy G62.9 Active 818360110 Problem Seasonal allergic rhinitis due to other allergic trigger J30.89 Active 978715079 Problem Bilateral tinnitus H93.13 Active 3867446007423 Problem Type 2 diabetes mellitus with other diabetic neurological complication E11.49 Active 54478261 Problem Type 2 diabetes mellitus with hyperglycemia E11.65 Active 126159288344730 Problem Tinnitus of left ear H93.12 Active 3417965888879 Problem Controlled type 2 diabetes mellitus without complication, without long -term current use of insulin E11.9 Active 397152750 Problem Observed sleep apnea G47.30 Active 38869270 Problem Tinnitus of both ears H93.13 Active 0356720579545 Problem Essential (primary) hypertension I10 Active 67796852 Problem Type 2 diabetes mellitus without complications E11.9 Active 776526096 Problem CAD (coronary artery disease) 414.00 Active 84689908 Problem Atherosclerotic heart disease of [place] coronary artery without angina pectoris I25.10 Active 817683877773058 Problem Elevated white blood cell count, unspecified D72.829 Active 660908773 Problem Type 2 diabetes mellitus with foot ulcer E11.621 Active 156669230 ALLERGIES Substance Reaction Event Type Date Status Brilinta rash, nausea, vomiting Drug Allergy August, Active Plavix rash, nausea, vomiting Drug Allergy August, Active ENCOUNTERS Encounter Location Date Diagnosis [facility] [address] [facility] [id number] [address] Nov, [facility] [address] [facility] [id number], [place] [address] Oct, Neuropathy G62.9 ; Type 2 diabetes mellitus with other diabetic neurological complication E11.49 ; Type 2 diabetes mellitus with hyperglycemia E11.65 ; Actinic keratoses L57.0 and Observed sleep apnea G47.30 [place] [address] [address] [place] [id number] Sep, Tinnitus of both ears H93.13 and Actinic keratitis, unspecified laterality H16.139 [facility] [address] [address] August, Type 2 diabetes mellitus without complications E11.9 and Controlled type 2 diabetes mellitus without complication, without long-term current use of insulin E11.9 [place] [address] [address] August, Seborrheic keratoses L82.1 and Tinnitus of left ear H93.12 [place] [address] [address] Jul, Controlled type 2 diabetes mellitus without complication, without long-term current use of insulin E11.9 ; Seborrheic keratoses L82.1 ; Bilateral tinnitus H93.13 and Seasonal allergic rhinitis due to other allergic trigger J30.89 [facility] [address] [id number] May, Encounter for dental examination Z01.20 [facility] [address] [id number] Jan, Encounter for dental examination Z01.20 [facility] [address] [address] Jan, Type 2 diabetes mellitus without complications E11.9 and Acute non-recurrent maxillary sinusitis J01.00 [facility] [address] [address] Dec, Right ear impacted cerumen H61.21 and Acute suppurative otitis media of right ear without spontaneous rupture of tympanic membrane, recurrence not specified H66.001 [facility] [address] [address] Nov, Type 2 diabetes mellitus without complications E11.9 and Neuropathy G62.9 [facility] [address] [id number] Oct, Encounter for dental examination Z01.20 [facility] [id number] [place] [id number] Jun, Dental examination Z01.20 [facility] [address] [place] [id number] [place] [address] 16 Jun, 2016 Atherosclerotic heart disease of [place] coronary artery without angina pectoris I25.10 [facility] [address] [place] [address] [id number] [place] [address] 15 Jun, 2016 Atherosclerotic heart disease of [place] coronary artery without angina pectoris I25.10 [facility] [address] [place] [address] [id number] [place] [address] Jun, Type 2 diabetes mellitus without complications E11.9 [facility] [address] [place] [id number] [place] [id number] May, Encounter for dental examination Z01.20 [facility] [address] [id number] [place] [address] [id number] Apr, Dental caries K02.9 [facility] [address] [id number] [place] [address] [id number] Apr, Dental examination Z01.20 [facility] [id number] [place] [address] Dec, Type 2 diabetes mellitus without complications E11.9 ; FDC current use of insulin Z79.4 ; Essential (primary) hypertension I10 and Elevated white blood cell count, unspecified D72.829 [facility] [address] [place] [id number] [place] [id number] Jul, Diabetes mellitus without mention of complication, type II or unspecified type, not stated as uncontrolled 250.00 [facility] [address] [place] [id number] [place] [address] Jul, [facility] [address] [id number] [address] 07 Jan, 2015 Encounter for immunization Z23 [facility] [address] [id number] Dec, Dental examination V72.2 [facility] [address] [address] Nov, Cancer of lung, upper lobe 162.3 [facility] [address] [place] [address] [id number] [place] [address] Sep, Lung cancer 162.9 ; CAD (coronary artery disease) 414.00 and Depression 311 [facility] [id number] [place] [address] Jul, [facility] [address] [place] [address] [id number] [place] [address] Jul, [facility] [address] [address] [id number] [place] [address] Jun, [facility] [id number] [place] [address] Jun, [facility] [address], [place] [address] Mar, [facility] [address], [place] [address] Mar, [facility] [address], [place] [address] Jan, [facility] [address], [place] [address] Jan, [facility] [address], [place] [address] Jan, [facility] [address] Jan, [facility] [address] [place] [id number] [place] [address] [place] [address] Jan, [facility] [place] [facility] [address] [id number] [place] [address] Jan, [facility] [place] [facility] [address] [id number] [place] [address] Dec, [facility] [place] [facility] [address] [id number] [place] [address] Dec, [facility] [place] [facility] [address] [id number] [place] [address] Oct, [facility] [place] [facility] [address] [id number] [place] [address] Oct, [facility] [place] [facility] [address] [id number] [place] [address] Sep, [facility] [place] [facility] [address] [id number] [place] [address] Sep, [facility] [place] [facility] [address] [id number] [place] [address] August, [facility] [place] [facility] [address] [id number] [place] [address] August, [facility] [place] [facility] [address] [id number] [place] [address] August, [facility] [place] [facility] [address] [id number] [place] [address] August, [facility] [place] [facility] [address] [id number] [place] [address] August, [facility] [place] [facility] [address] [id number] [place] [address] August, [facility] [place] [facility] [address] [id number] [place] [address] Jun, [facility] [place] [facility] [address] [id number] [place] [address]- 79[address] Jun, [facility] [place] [facility] [address] [id number] [place] [address] 39[address] May, [facility] [place] [facility] [address] [id number] [place] [address] May, [facility] [place] [facility] [address] [id number] [place] [address] May, [facility] [place] [facility] [address] [id number] [place] [address] May, [facility] [place] [facility] [address] [id number] [place] [address] 139[address] Apr, [facility] [place] [facility] [address] [id number] [place] [address]- [address] Apr, [facility] [address] [id number] [place] [address] 4[address] Mar, [facility] [place] [facility] [address] [id number] [place] [address] Mar, [facility] [place] [facility] [address] [id number] [place] [address]- 35[address] Mar, [facility] [place] [facility] [address] [id number] [place] [address]- [address] Mar, [facility] [place] [facility] [address] [id number] [place] [address]- 9[address] Mar, [facility] [place] [facility] [address] [id number], [place] [address] Mar, [facility] [place] [facility] [address] [id number] [place] [address]- 9[address] Mar, [facility] [place] [facility] [address] [id number] [place] [address]- 67[address] Mar, [facility] [place] [facility] [address] [id number] [place] [address]- 3997 Mar, [facility] [place] [facility] [address] [id number] [place] [address]- 7209 Feb, [facility] [place] [facility] [address] [id number] [place] [address]- 9498 Feb, [facility] [place] [facility] [address] [id number] [place] [address]- 6065 Jan, [facility] [place] [facility] [address] [id number] [place] [address]- 1025 Jan, [facility] [place] [facility] [address] [id number] [place] [address]- 6683 Jan, [facility] [place] [facility] [address] [id number] [place] [address]- 8215 Jan, [facility] [place] [facility] [address] [id number] [place] [address]- 0759 Jan, [facility] [place] [facility] [address] [id number] [place] [address]- 0548 Dec, [facility] [place] [facility] [address] [id number] [place] [address]- 0641 Nov, [facility] [place] [facility] [address] [id number] [place] [address]- 3313 Nov, [facility] [place] [facility] [address] [id number] [place] [address]- 5684 Nov, [facility] [place] [facility] [address] [id number] [place] [address]- 0050 Oct, [facility] [place] [facility] [address] [id number] [place] [address]- 0620 Oct, [facility] [place] [facility] [address] [id number] [place] [address]- [address] Sep, [facility] [place] [facility] [address] [id number] [place] [address]- 7532 Sep, [facility] [place] [facility] [address] [id number] [place] [address]- 89[address] August, [facility] [place] [facility] [address] [id number] [place] [address]- [address]35 17 Aug, 2012 [facility] [address] [id number] [place] [address]- [address] August, [facility] [address] [id number] [place] [address]- 57[address] August, [facility] [address] [id number] [place] [address]- 2432 16 Jul, 2012 [facility] [address] [id number] [place] [address]- [address]37 Jul, [facility] [address] [id number] [place] [address]- 5[address] Jun, [facility] [address] [id number] [place] [address]- 6370 May, [facility] [address] [id number] [place] [address]- 8552 May, [facility] [address] [id number] [place] [address]- 7026 May, [facility] [address] [id number] [place] [address]- 9864 May, [facility] [address] [facility] [id number] [place] [address]- 9981 May, [facility] [address] [id number] [place] [address]- 4492 May, [facility] [address] [id number] [place] [address]- 2201 May, [facility] [address] [id number] [place] [address]- 0326 August, [facility] [address] [id number] [place] [address]- 2966 23 Jul, 2011 [facility] [address] [id number], [place] [address] Jul, [facility] [address], [place] [address] 28[address] May, [facility] [address], [place] [address] May, [facility] [address], [place] [address] Mar, [facility] [id number] [place] [address]- 60[address] Sep, [facility] [id number] [place] [address]- 7334 Jul, [facility] [id number] [place] [address]- 4526 Mar, [facility] [address], [place] [address] Feb, [facility] [address], [place] [address] Feb, IMMUNIZATIONS No Known Immunizations SOCIAL HISTORY Never Assessed REASON FOR VISIT Lesion removal WB-MA PLAN OF CARE Activity Details Follow Up 4 Weeks Reason:cryo Future/Pending Procedure CRYOTHERAPY OF SKIN VITAL SIGNS Height 71 in 2017-09-04 Weight 214.6 lbs 2017-09-04 Temperature 97.8 degrees Fahrenheit 2017-09-04 Heart Rate 80 bpm 2017-09-04 Respiratory Rate 20 2017-09-04 BMI 29.93 kg/m2 2017-09-04 Blood pressure systolic 122 mmHg 2017-09-04 Blood pressure diastolic 78 mmHg 2017-09-04 MEDICATIONS Medication Instructions Dosage Frequency Start Date End Date Duration Status Albuterol Sulfate HFA 108 (90 Base) MCG/ACT Inhalation every 4 hrs 2 puffs as needed 4h Active Metformin HCl 500 mg 1 tablet with meals 12h Active Oxygen 2 LPM Active Blood Glucose Test Strip 1 as directed Jul, Active Wellbutrin XL 300 mg 1 tablet 24h Dec, Active Aspir-81 81 MG Orally Once a day 1 tablet 24h Active Lancets 1 Test 2 times per day DX: DM2 Oct, Active Lipitor 80 MG Orally Once a day 1 tablet 24h Active potassium Oral Once a day 1 tablet (500 mg) 24h Active Loratadine 10 MG Orally Once a day 1 tablet 24h Not-Taking Omeprazole 20 MG Orally Once a day 1 capsule 24h Active Calcium 1000 + D 1000-800 MG-UNIT Active Singulair 10 mg Orally Once a day 1 tablet in the evening 24h Jul, 30 day(s) Active Flonase 50 MCG/ACT Nasally Once a day 2 sprays in each nostril 24h Active Magnesium 300 MG Orally Once a day 1 capsule with a meal 24h Active Multiple Vitamins 1 Tablet by Oral route 1 time per day Mar, Active Fish Oil + D3 6464-7995 MG-UNIT Orally twice a day 1 capsule 12h Active Neurontin 300 MG Orally 3 times a day 1 capsule 8h Nov, Active RESULTS No Results PROCEDURES Procedure Date Ordered Result Body Site CRYOTHERAPY OF SKIN September 04, 2017 INSTRUCTIONS MEDICATIONS ADMINISTERED No Known Medications [...]
--- NOTE | 2017-12-31 15:22 | Diagnostic Imaging Report ---
PROCEDURE: CT angiography of the head and CT angiography of the neck with and without contrast. TECHNIQUE: Contiguous noncontrast images were obtained from the skull base through the vertex. After intravenous contrast administration, helical CT angiography of the neck was performed. Source data was reformatted into multiple MIP projections. Delayed post contrast acquisition was also obtained. INDICATION: Strokelike symptoms with memory loss and bilateral arm numbness. There is a three-vessel branching pattern to the aortic arch. Vessel origins appear to be patent. Both common carotid arteries are patent. The carotid bifurcations are unremarkable. The bilateral internal carotid arteries appear to be widely patent. There is flow within the bilateral middle cerebral and anterior cerebral arteries. No thromboembolism is identified. Bilateral posterior cerebral arteries are patent. There is a patent posterior communicating artery on the right, normal variant. Basilar and bilateral vertebral arteries are widely patent. The vertebral arteries appear to be codominant, no enhancing lesion is seen. IMPRESSION: Unremarkable CT angiogram of the head and neck. No thromboembolism is identified. Dictated by: Dictated on workstation # [id number]
--- OUTSIDE RECORDS SUMMARY | 2017-12-31 15:22 | XMS REPORT ---
Author Author NNEKA PUGH [facility] Address Unknown Care Team Providers Care Educational Therapist Name Role Phone NNEKA PUGH Unavailable PROBLEMS Type Condition ICD9-CM Code LAX34-BK Code Onset Dates Condition Status SNOMED Code Problem Elevated white blood cell count, unspecified D72.829 Active 468696918 Problem CAD (coronary artery disease) 414.00 Active 42135283 Problem Type 2 diabetes mellitus with foot ulcer E11.621 Active 001817925 Problem Neuropathy G62.9 Active 726850193 Problem Type 2 diabetes mellitus without complications E11.9 Active 689172018 Problem Essential (primary) hypertension I10 Active 52090628 Problem Atherosclerotic heart disease of [place] coronary artery without angina pectoris I25.10 Active 799321191731011 Problem Encounter for dental examination Z01.20 Active 443026615 ALLERGIES Substance Reaction Event Type Date Status Brilinta Unknown Drug Allergy Apr, Active Plavix 75 Mg Tablet Unknown Non Drug Allergy Apr, Active SOCIAL HISTORY No smoking Hx information available PLAN OF CARE Activity Details Follow Up prn Reason:hygiene VITAL SIGNS Blood pressure systolic 132 mmHg 2016-05-02 Blood pressure diastolic 80 mmHg 2016-05-02 MEDICATIONS Medication Instructions Dosage Frequency Start Date End Date Duration Status Multiple Vitamins 1 Tablet by Oral route 1 time per day Mar, Active Magnesium 300 MG Orally Once a day 1 capsule with a meal 24h Active Lipitor 40 MG Orally Once a day 1 tablet 24h Active Ranitidine HCl 300 MG Active Loratadine 10 MG Orally Once a day 1 tablet 24h Active Metformin HCl 500 MG 1 tablet with meals 12h Active Blood Glucose Test Strip 1 as directed Jul, Active Aspir-81 81 MG Orally Once a day 1 tablet 24h Active Calcium 1000 + D 1000-800 MG-UNIT Active potassium 1 tab Active Viagra 100 mg 1 tablet by Oral route 1 time per dayPRN May, Active Flonase 50 MCG/ACT Nasally Once a day 1 spray in each nostril 24h Active Prilosec 20 MG Orally Once a day 1 capsule 24h Active Lancets 1 Test 2 times per day DX: DM2 Oct, Active Fish Oil + D3 4934-5060 MG-UNIT Orally Three times a day 1 capsule 8h Active Wellbutrin XL 300 MG Orally Once a day 1 tablet in the morning 24h Sep, 30 day(s) Active Oxygen 2 LPM Active RESULTS No Results PROCEDURES Procedure Date Ordered Related Diagnosis Body Site EXTRAC ERUPTED TOOTH/EXPOSED ROOT May 02, 2016 IMMUNIZATIONS No Known Immunizations
--- OUTSIDE RECORDS SUMMARY | 2017-12-31 15:22 | XMS REPORT ---
Author Author NNEKA PUGH [facility] Address Unknown Care Team Providers Care Fur Remodeler Name Role Phone NNEKA PUGH Unavailable PROBLEMS Type Condition ICD9-CM Code EHI48-RM Code Onset Dates Condition Status SNOMED Code Problem Elevated white blood cell count, unspecified D72.829 Active 239407678 Problem CAD (coronary artery disease) 414.00 Active 50328888 Problem Type 2 diabetes mellitus with foot ulcer E11.621 Active 543329541 Problem Neuropathy G62.9 Active 733521606 Problem Type 2 diabetes mellitus without complications E11.9 Active 253869263 Problem Essential (primary) hypertension I10 Active 51025712 Problem Atherosclerotic heart disease of [place] coronary artery without angina pectoris I25.10 Active 768613192446788 Problem Encounter for dental examination Z01.20 Active 342079019 ALLERGIES Substance Reaction Event Type Date Status Brilinta Unknown Drug Allergy Apr, Active Plavix 75 Mg Tablet Unknown Non Drug Allergy Apr, Active SOCIAL HISTORY No smoking Hx information available PLAN OF CARE Activity Details Follow Up prn Reason:te VITAL SIGNS Blood pressure systolic 121 mmHg 2016-04-25 Blood pressure diastolic 76 mmHg 2016-04-25 MEDICATIONS Medication Instructions Dosage Frequency Start Date End Date Duration Status Lancets 1 Test 2 times per day DX: DM2 Oct, Active Ranitidine HCl 300 MG Active Lipitor 40 MG Orally Once a day 1 tablet 24h Active Viagra 100 mg 1 tablet by Oral route 1 time per dayPRN May, Active Prilosec 20 MG Orally Once a day 1 capsule 24h Active Loratadine 10 MG Orally Once a day 1 tablet 24h Active Flonase 50 MCG/ACT Nasally Once a day 1 spray in each nostril 24h Active Calcium 1000 + D 1000-800 MG-UNIT Active Aspir-81 81 MG Orally Once a day 1 tablet 24h Active Fish Oil + D3 4555-4322 MG-UNIT Orally Three times a day 1 capsule 8h Active Blood Glucose Test Strip 1 as directed Jul, Active Magnesium 300 MG Orally Once a day 1 capsule with a meal 24h Active Multiple Vitamins 1 Tablet by Oral route 1 time per day Mar, Active Wellbutrin XL 300 MG Orally Once a day 1 tablet in the morning 24h Sep, 30 day(s) Active potassium 1 tab Active Metformin HCl 500 MG 1 tablet with meals 12h Active Oxygen 2 LPM Active RESULTS No Results PROCEDURES Procedure Date Ordered Related Diagnosis Body Site LTD ORAL EVALUATION - PROBLEM FOCUS Apr 25, 2016 INTRAORL-PERIAPICAL 1 FILM 79954 Apr 25, 2016 BITEWING - SINGLE FILM Apr 25, 2016 IMMUNIZATIONS No Known Immunizations
--- OUTSIDE RECORDS SUMMARY | 2017-12-31 15:22 | XMS REPORT ---
Author Author JASON MICHELE Organization [facility] Address [address] [place] [address] Care Team Providers Care Two Needle Machine Operator Name Role Phone JASON MICHELE Unavailable PROBLEMS Type Condition ICD9-CM Code ZST91-DH Code Onset Dates Condition Status SNOMED Code Problem Essential (primary) hypertension I10 Active 25090110 Problem Atherosclerotic heart disease of [place] coronary artery without angina pectoris I25.10 Active 601517874889382 Problem Type 2 diabetes mellitus without complications E11.9 Active 280459207 Problem CAD (coronary artery disease) 414.00 Active 35500056 Problem Elevated white blood cell count, unspecified D72.829 Active 246403067 Problem Tinnitus of left ear H93.12 Active 5074437767014 Problem Bilateral tinnitus H93.13 Active 3207891155377 Problem Type 2 diabetes mellitus with foot ulcer E11.621 Active 011565958 Problem Neuropathy G62.9 Active 628789634 Problem Controlled type 2 diabetes mellitus without complication, without long -term current use of insulin E11.9 Active 618850704 Problem Seasonal allergic rhinitis due to other allergic trigger J30.89 Active 571028807 ALLERGIES Substance Reaction Event Type Date Status Brilinta Unknown Drug Allergy Jan, Active Plavix 75 Mg Tablet Unknown Non Drug Allergy Jan, Active ENCOUNTERS Encounter Location Date Diagnosis [place] [id number] [facility] [id number] [address] Sep, [facility] [address] [facility] [id number], [place] [address] August, Seborrheic keratoses L82.1 and Tinnitus of left ear H93.12 [facility] [address] [facility] [id number], [place] [address] Jul, Controlled type 2 diabetes mellitus without complication, without long-term current use of insulin E11.9 ; Seborrheic keratoses L82.1 ; Bilateral tinnitus H93.13 and Seasonal allergic rhinitis due to other allergic trigger J30.89 [facility] [id number] [place] [address] [id number] May, Encounter for dental examination Z01.20 [facility] [id number] [place] [address] [phone] Jan, Encounter for dental examination Z01.20 [facility] [address] [address] 02 Jan, 2017 Type 2 diabetes mellitus without complications E11.9 and Acute non-recurrent maxillary sinusitis J01.00 [facility] [address] [id number] Dec, Right ear impacted cerumen H61.21 and Acute suppurative otitis media of right ear without spontaneous rupture of tympanic membrane, recurrence not specified H66.001 [facility] [address] [address] Nov, Type 2 diabetes mellitus without complications E11.9 and Neuropathy G62.9 [facility] [id number] [place] [address] [id number] Oct, Encounter for dental examination Z01.20 [facility] [id number] [place] [address] [id number] Jun, Dental examination Z01.20 [facility] [address] [id number]- [address] 16 Jun, 2016 Atherosclerotic heart disease of [place] coronary artery without angina pectoris I25.10 [facility] [address] [id number] [place] [address] 15 Jun, 2016 Atherosclerotic heart disease of [place] coronary artery without angina pectoris I25.10 [facility] [address] [id number] [place] [address] 946135- [address] 13 Jun, 2016 Type 2 diabetes mellitus without complications E11.9 [facility] [address] [id number] May, Encounter for dental examination Z01.20 [facility] [address] [place] [address] [id number] Apr, Dental caries K02.9 [facility] [id number] [place] [address] [phone] Apr, Dental examination Z01.20 [facility] [address] [place] [id number] [place] [address] 2546 08 Dec, 2015 Type 2 diabetes mellitus without complications E11.9 ; 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 ; Essential (primary) hypertension I10 and Elevated white blood cell count, unspecified D72.829 [place] [address] [address] Jul, Diabetes mellitus without mention of complication, type II or unspecified type, not stated as uncontrolled 250.00 [place] [address] 333183- 267[address] Jul, [place] [address] [place] [id number] [place] [address] [id number] Jan, Encounter for immunization Z23 [facility] [id number] [place] [address] [id number] Dec, Dental examination V72.2 [place] [address] [place] [address] [id number] [place] [address] 842483- [address] Nov, Cancer of lung, upper lobe 162.3 [place] [address] [place] [id number] [place] [address] 1136 Sep, Lung cancer 162.9 ; CAD (coronary artery disease) 414.00 and Depression 311 [place] [address] 630296- [address] Jul, [place] [address] [place] [id number] [place] [address] Jul, [place] [address] [id number]- [address] Jun, [facility] [place] [facility] [address] [id number] [place] [address] Jun, [facility] [place] [facility] [address] [id number] [place] [address] Mar, [facility] [place] [facility] [address] [id number] [place] [address] 1325 Mar, [facility] [place] [facility] [address] [id number] [place] [address] Jan, [facility] [place] [facility] [address] [id number] [place] [address]- 14[address] Jan, [facility] [place] [facility] [address] [id number] [place] [address] 75[address] Jan, [facility] [place] [facility] [address] [id number] [place] [address] Jan, [facility] [place] [facility] [address] [id number] [place] [address] Jan, [facility] [place] [facility] [address] [id number] [place] [address]- 27[address] Jan, [facility] [place] [facility] [address] [id number] [place] [address] 39[address] Dec, [facility] [place] [facility] [address] [id number], [place] [address] Dec, [facility] [place] [facility] [address] [id number], [place] [address] Oct, [facility] [place] [facility] [address] [id number] [place] [address] Oct, [facility] [place] [facility] [address] [id number], [place] [address] Sep, [facility] [place] [facility] [address] [id number] [place] [address]- 2542 Sep, [facility] [place] [facility] [address] [id number] [place] [address] August, [facility] [address] [id number] [place] [address] August, [facility] [place] [facility] [address] [id number] [place] [address]- 1179 August, [facility] [place] [facility] [address] [id number] [place] [address]- 2785 August, [facility] [place] [facility] [address] [id number] [place] [address]- 17[address] August, [facility] [place] [facility] [address] [id number] [place] [address]- 5[address] August, [facility] [place] [facility] [address] [id number] [place] [address]- 49[address] Jun, [facility] [place] [facility] [address] [id number] [place] [address]- 5[address] Jun, [facility] [place] [facility] [address] [id number] [place] [address]- 74[address] May, [facility] [place] [facility] [address] [id number] [place] [address]- 8680 May, [facility] [address] [id number] [place] [address]- 8264 May, [facility] [place] [facility] [address] [id number] [place] [address]- 74[address] May, [facility] [place] [facility] [address] [id number] [place] [address]- 83[address] Apr, [facility] [place] [facility] [address] [id number] [place] [address]- 97[address] Apr, [facility] [place] [facility] [address] [id number] [place] [address] Mar, [facility] [place] [facility] [address] [id number] [place] [address]- 75[address] Mar, [facility] [place] [facility] [address] [id number] [place] [address]- 3925 Mar, [facility] [place] [facility] [address] [id number] [place] [address]- 83[address] Mar, [facility] [place] [facility] [address] [id number] [place] [address]- [address]64 Mar, [facility] [place] [facility] [address] [id number] [place] [address]- 1072 Mar, [facility] [place] [facility] [address] [id number] [place] [address]- 9195 Mar, [facility] [place] [facility] [address] [id number] [place] [address]- 6333 Mar, [facility] [place] [facility] [address] [id number] [place] [address]- 1899 Mar, [facility] [place] [facility] [address] [id number], [place] [address]- [address] Feb, [facility] [place] [facility] [address] [id number] [place] [address]- 46[address] Feb, [facility] [place] [facility] [address] [id number], [place] [address]- [address] Jan, [facility] [place] [facility] [address] [id number], [place] [address]- 27[address] Jan, [facility] [place] [facility] [address] [id number], [place] [address]- [address] Jan, [facility] [place] [facility] [address] [id number] [place] [address]- 490[address] Jan, [facility] [place] [facility] [address] [id number], [place] [address] Jan, [facility] [place] [facility] [address] [id number], [place] [address]- [address] Dec, [facility] [place] [facility] [address] [id number] [place] [address]- 6304 Nov, [facility] [address] [id number] [place] [address]- 4816 Nov, [facility] [address] [id number] [place] [address]- 3567 Nov, [facility] [address] [id number] [place] [address]- 5015 Oct, [facility] [address] [id number] [place] [address]- 1281 Oct, [facility] [address] [id number] [place] [address]- 1555 Sep, [facility] [address] [id number] [place] [address]- 4624 Sep, [facility] [address] [id number] [place] [address]- 7859 August, [facility] [address] [id number] [place] [address]- 2396 August, [facility] [address] [id number] [place] [address]- 4678 August, [facility] [address] [id number] [place] [address]- 4211 August, [facility] [address] [id number] [place] [address]- 0428 Jul, [facility] [place] [facility] [address] [id number] [place] [address]- 3[address] Jul, [facility] [place] [facility] [address] [id number] [place] [address]- 5199 Jun, [facility] [place] [facility] [address] [id number] [place] [address]- 490[address] May, [facility] [address] [id number] [place] [address]- 0714 May, [facility] [address] [id number] [place] [address] 2546 18 May, 2012 [facility] [address] [id number] [place] [address] 2546 15 May, 2012 [facility] [address] [id number] [place] [address] 2546 May, [facility] [place] [facility] [address] [id number] [place] [address] 2546 May, [facility] [address] [id number] [place] [address] 2546 May, [facility] [address] [id number] [place] [address] 2546 August, [facility] [address] [id number] [place] [address]- 4556 Jul, [facility] [address] [id number] [place] [address]- 7163 Jul, [facility] [address] [id number] [place] [address] 2543 May, [facility] [address] [id number] [place] [address] 2542 May, [facility] [address] [id number] [place] [address]- 5959 Mar, [facility] [place] [facility] [address] [id number] [place] [address] 2546 Sep, [facility] [place] [facility] [address] [id number] [place] [address] 2546 16 Jul, 2009 [facility] [place] [facility] [address] [id number] [place] [address] 2546 Mar, [facility] [place] [facility] [address] [id number] [place] [address] 2546 Feb, [facility] [place] [facility] [address] [facility] [id number] [place] [address]- 9[address] Feb, IMMUNIZATIONS No Known Immunizations SOCIAL HISTORY Never Assessed REASON FOR VISIT 3 MO RECALL PLAN OF CARE Activity Details Follow Up first available/3 mos Reason:Restorative/perio maint VITAL SIGNS Heart Rate 75 bpm 2017-02-08 Blood pressure systolic 102 mmHg 2017-02-08 Blood pressure diastolic 64 mmHg 2017-02-08 MEDICATIONS Medication Instructions Dosage Frequency Start Date End Date Duration Status Loratadine 10 MG Orally Once a day 1 tablet 24h Active Albuterol Sulfate HFA 108 (90 Base) MCG/ACT Inhalation every 4 hrs 2 puffs as needed 4h Active Flonase 50 MCG/ACT Nasally Once a day 1 spray in each nostril 24h Active Magnesium 300 MG Orally Once a day 1 capsule with a meal 24h Active Oxygen 2 LPM Active Neurontin 100 mg Orally 3 times a day 1 capsule 8h Nov, Active Wellbutrin XL 300 mg 1 tablet 24h Dec, Active Fish Oil + D3 8774-0400 MG-UNIT Orally twice a day 1 capsule 12h Active Metformin HCl 500 mg 1 tablet with meals 12h Active Blood Glucose Test Strip 1 as directed Jul, Active Lancets 1 Test 2 times per day DX: DM2 Oct, Active Calcium 1000 + D 1000-800 MG-UNIT Active Lipitor 80 MG Orally Once a day 1 tablet 24h Active Omeprazole 20 MG Orally Once a day 1 capsule 24h Active Aspir-81 81 MG Orally Once a day 1 tablet 24h Active Multiple Vitamins 1 Tablet by Oral route 1 time per day Mar, Active RESULTS No Results PROCEDURES Procedure Date Ordered Result Body Site Periodontal maint procedures Feb 08, 2017 TOPICAL FLUORIDE VARNISH Feb 08, 2017 INSTRUCTIONS MEDICATIONS ADMINISTERED No Known Medications [...]
--- OUTSIDE RECORDS SUMMARY | 2017-12-31 15:22 | XMS REPORT ---
Author Author JAYE RIGGS [facility] Address [address] [place] [address] Care Team Providers Care Service Operations Manager Name Role Phone JAYE RIGGS Unavailable PROBLEMS Type Condition ICD9-CM Code KZX45-HU Code Onset Dates Condition Status SNOMED Code Problem Elevated white blood cell count, unspecified D72.829 Active 146710936 Problem CAD (coronary artery disease) 414.00 Active 32158894 Problem Type 2 diabetes mellitus with foot ulcer E11.621 Active 493691796 Problem Neuropathy G62.9 Active 552310767 Problem Type 2 diabetes mellitus without complications E11.9 Active 441437448 Problem Essential (primary) hypertension I10 Active 76611219 Problem Atherosclerotic heart disease of [place] coronary artery without angina pectoris I25.10 Active 939490299895290 Problem Encounter for dental examination Z01.20 Active 497675751 ALLERGIES No Information SOCIAL HISTORY Never Assessed PLAN OF CARE VITAL SIGNS MEDICATIONS Unknown Medications RESULTS Name Result Date Reference Range TSH 2016-07-06 TSH 2.620 0.450-4.500 CBC 2016-07-06 WBC 8.0 3.4-10.8 RBC 5.30 4.14-5.80 Hemoglobin 16.0 12.6-17.7 Hematocrit 48.4 37.5-51.0 MCV 91 79-97 MCH 30.2 26.6-33.0 MCHC 33.1 31.5-35.7 RDW 14.6 12.3-15.4 Platelets 249 150-379 Neutrophils 60 Lymphs 28 Monocytes 8 Eos 3 Basos 1 Neutrophils (Absolute) 4.8 1.4-7.0 Lymphs (Absolute) 2.3 0.7-3.1 Monocytes(Absolute) 0.7 0.1-0.9 Eos (Absolute) 0.2 0.0-0.4 Baso (Absolute) 0.1 0.0-0.2 Immature Granulocytes 0 Immature Grans (Abs) 0.0 0.0-0.1 CRP, CARDIAC 2016-07-06 C-Reactive Protein, Cardiac 2.36 0.00-3.00 BNP 2016-07-06 B-Type Natriuretic Peptide 44.6 0.0-100.0 LIPID PANEL 2016-07-06 Cholesterol, Total 187 100-199 Triglycerides 239 0-149 HDL Cholesterol 44 >39 VLDL Cholesterol Ramesh 48 5-40 LDL Cholesterol Calc 95 0-99 CMP 2016-07-06 Glucose, Serum 123 65-99 BUN 15 8-27 Creatinine, Serum 1.19 0.76-1.27 eGFR If NonAfricn Am 66 >59 eGFR If Africn Am 76 >59 BUN/Creatinine Ratio 13 10-22 Sodium, Serum 140 134-144 Potassium, Serum 4.9 3.5-5.2 Chloride, Serum 97 96-106 Carbon Dioxide, Total 21 18-29 Calcium, Serum 9.9 8.6-10.2 Protein, Total, Serum 7.3 6.0-8.5 Albumin, Serum 4.3 3.6-4.8 Globulin, Total 3.0 1.5-4.5 A/G Ratio 1.4 1.2-2.2 Bilirubin, Total 0.3 0.0-1.2 Alkaline Phosphatase, S 114 39-117 AST (SGOT) 22 0-40 ALT (SGPT) 28 0-44 PROCEDURES Procedure Date Ordered Result Body Site EKG, TRACING (IN-HOUSE) 2016-07-06 N/A ASSAY THYROID STIM HORMONE July 06, 2016 ELECTROCARDIOGRAM, TRACING July 06, 2016 COMPREHEN METABOLIC PANEL July 06, 2016 VENIPUNCT, ROUTINE* July 06, 2016 C-REACTIVE PROTEIN, HS July 06, 2016 COMPLETE CBC W/AUTO DIFF WBC July 06, 2016 LIPID PANEL July 06, 2016 NATRIURETIC PEPTIDE July 06, 2016 IMMUNIZATIONS No Known Immunizations MEDICAL (GENERAL) [...]
--- OUTSIDE RECORDS SUMMARY | 2017-12-31 15:22 | XMS REPORT ---
Author Author JAYE RIGGS Organization [facility] Address [address] [place] [address] Care Team Providers Care Bow Maker Machine Tender Name Role Phone JAYE RIGGS Unavailable PROBLEMS Type Condition ICD9-CM Code MAY59-MF Code Onset Dates Condition Status SNOMED Code Problem Elevated white blood cell count, unspecified D72.829 Active 006239994 Problem CAD (coronary artery disease) 414.00 Active 69026210 Problem Type 2 diabetes mellitus with foot ulcer E11.621 Active 269067313 Problem Neuropathy G62.9 Active 880163018 Problem Type 2 diabetes mellitus without complications E11.9 Active 130271881 Problem Essential (primary) hypertension I10 Active 42458303 Problem Atherosclerotic heart disease of [place] coronary artery without angina pectoris I25.10 Active 771885813616744 Problem Encounter for dental examination Z01.20 Active 723721812 ALLERGIES No Information SOCIAL HISTORY Never Assessed PLAN OF CARE VITAL SIGNS MEDICATIONS Unknown Medications RESULTS No Results PROCEDURES No Known procedures IMMUNIZATIONS No Known Immunizations MEDICAL (GENERAL) HISTORY [...]
--- OUTSIDE RECORDS SUMMARY | 2017-12-31 15:24 | XMS REPORT | Continuity of Care Document ---
Author Author [facility] of [facility] of [facility] Address Unknown Phone Unavailable Allergies Active Description Code Type Severity Reaction Onset Reported/Identified Relationship to Patient Clinical Status Yes celery Food Allergy N/A N/A 03/12/2009 Yes celery Food Allergy 03/12/2009 Yes Plavix 75 mg tablet Drug Allergy N/A N/A 11/01/2012 Yes Brilinta Drug Allergy N/A N/A 03/26/2013 Yes celery [id number] Drug Allergy Unknown N/A 07/28/2016 Yes clopidogrel [id number] Drug Allergy Unknown NAUSEA 07/28/2016 Yes ticagrelor [id number] Drug Allergy Unknown NAUSEA 07/28/2016 Medications There is no data. Problems Date Dx Coded Attending Type Code Diagnosis Diagnosed By 11/29/2007 272.4 HYPERLIPIDEMIA UNSPECIFIED 11/29/2007 729.5 PAIN IN LIMB 11/29/2007 JAYE RIGGS APRN 272.4 HYPERLIPIDEMIA UNSPECIFIED 11/29/2007 JAYE RIGGS APRN 729.5 PAIN IN LIMB 11/29/2007 JAYE RIGGS APRN 272.4 HYPERLIPIDEMIA UNSPECIFIED 11/29/2007 JAYE RIGGS APRN 729.5 PAIN IN LIMB 11/29/2007 272.4 HYPERLIPIDEMIA UNSPECIFIED 11/29/2007 729.5 PAIN IN LIMB 11/29/2007 272.4 HYPERLIPIDEMIA UNSPECIFIED 11/29/2007 729.5 PAIN IN LIMB 11/29/2007 272.4 HYPERLIPIDEMIA UNSPECIFIED 11/29/2007 729.5 PAIN IN LIMB 11/29/2007 272.4 HYPERLIPIDEMIA UNSPECIFIED 11/29/2007 729.5 PAIN IN LIMB 11/29/2007 272.4 HYPERLIPIDEMIA UNSPECIFIED 11/29/2007 729.5 PAIN IN LIMB 11/29/2007 272.4 HYPERLIPIDEMIA UNSPECIFIED 11/29/2007 729.5 PAIN IN LIMB 11/29/2007 JAYE RIGGS APRN 272.4 HYPERLIPIDEMIA UNSPECIFIED 11/29/2007 JAYE RIGGS APRN 729.5 PAIN IN LIMB 11/29/2007 DARSHAN RODRIGUEZ MD 272.4 HYPERLIPIDEMIA UNSPECIFIED 11/29/2007 DARSHAN RODRIGUEZ MD 729.5 PAIN IN LIMB 11/29/2007 DARSHAN RODRIGUEZ MD 272.4 HYPERLIPIDEMIA UNSPECIFIED 11/29/2007 DARSHAN RODRIGUEZ MD 729.5 PAIN IN LIMB 11/29/2007 DARSHAN RODRIGUEZ MD 272.4 HYPERLIPIDEMIA UNSPECIFIED 11/29/2007 DARSHAN RODRIGUEZ MD 729.5 PAIN IN LIMB 11/29/2007 JAYE RIGGS APRN 272.4 HYPERLIPIDEMIA UNSPECIFIED 11/29/2007 JAYE RIGGS APRN 729.5 PAIN IN LIMB 11/29/2007 JAYE RIGGS APRN 272.4 HYPERLIPIDEMIA UNSPECIFIED 11/29/2007 JAYE RIGGS APRN 729.5 PAIN IN LIMB 11/29/2007 JAYE RIGGS APRN 272.4 HYPERLIPIDEMIA UNSPECIFIED 11/29/2007 JAYE RIGGS APRN 729.5 PAIN IN LIMB 11/29/2007 ROGER DO, IRMA K 272.4 HYPERLIPIDEMIA UNSPECIFIED 11/29/2007 ROGER DO, IRMA K 729.5 PAIN IN LIMB 11/29/2007 JAYE RIGGS APRN 272.4 HYPERLIPIDEMIA UNSPECIFIED 11/29/2007 JAYE RIGGS APRN 729.5 PAIN IN LIMB 01/03/2008 719.41 PAIN IN JOINT INVOLVING SHOULDER REGION 01/03/2008 JAYE RIGGS APRN 719.41 PAIN IN JOINT INVOLVING SHOULDER REGION 01/03/2008 JAYE RIGGS APRN 719.41 PAIN IN JOINT INVOLVING SHOULDER REGION 01/03/2008 719.41 PAIN IN JOINT INVOLVING SHOULDER REGION 01/03/2008 719.41 PAIN IN JOINT INVOLVING SHOULDER REGION 01/03/2008 719.41 PAIN IN JOINT INVOLVING SHOULDER REGION 01/03/2008 719.41 PAIN IN JOINT INVOLVING SHOULDER REGION 01/03/2008 719.41 PAIN IN JOINT INVOLVING SHOULDER REGION 01/03/2008 719.41 PAIN IN JOINT INVOLVING SHOULDER REGION 01/03/2008 JAYE RIGGS APRN 719.41 PAIN IN JOINT INVOLVING SHOULDER REGION 01/03/2008 DARSHAN RODRIGUEZ MD 719.41 PAIN IN JOINT INVOLVING SHOULDER REGION 01/03/2008 DARSHAN RODRIGUEZ MD 719.41 PAIN IN JOINT INVOLVING SHOULDER REGION 01/03/2008 DARSHAN RODRIGUEZ MD 719.41 PAIN IN JOINT INVOLVING SHOULDER REGION 01/03/2008 JAYE RIGGS APRN 719.41 PAIN IN JOINT INVOLVING SHOULDER REGION 01/03/2008 JAYE RIGGS APRN 719.41 PAIN IN JOINT INVOLVING SHOULDER REGION 01/03/2008 JAYE RIGGS APRN 719.41 PAIN IN JOINT INVOLVING SHOULDER REGION 01/03/2008 KANA CALI IRMA K 719.41 PAIN IN JOINT INVOLVING SHOULDER REGION 01/03/2008 JAYE RIGGS APRN 719.41 PAIN IN JOINT INVOLVING SHOULDER REGION 01/10/2008 305.1 TOBACCO ABUSE 01/10/2008 477.9 RHINITIS ALLERGIC 01/10/2008 JAYE RIGGS APRN 305.1 TOBACCO ABUSE 01/10/2008 JAYE RIGGS APRN 477.9 RHINITIS ALLERGIC 01/10/2008 JAYE RIGGS APRN 305.1 TOBACCO ABUSE 01/10/2008 JAYE RIGGS APRN 477.9 RHINITIS ALLERGIC 01/10/2008 305.1 TOBACCO ABUSE 01/10/2008 477.9 RHINITIS ALLERGIC 01/10/2008 305.1 TOBACCO ABUSE 01/10/2008 477.9 RHINITIS ALLERGIC 01/10/2008 305.1 TOBACCO ABUSE 01/10/2008 477.9 RHINITIS ALLERGIC 01/10/2008 305.1 TOBACCO ABUSE 01/10/2008 477.9 RHINITIS ALLERGIC 01/10/2008 305.1 TOBACCO ABUSE 01/10/2008 477.9 RHINITIS ALLERGIC 01/10/2008 305.1 TOBACCO ABUSE 01/10/2008 477.9 RHINITIS ALLERGIC 01/10/2008 JAYE RIGGS APRN 305.1 TOBACCO ABUSE 01/10/2008 JAYE RIGGS APRN 477.9 RHINITIS ALLERGIC 01/10/2008 DARSHAN RODRIGUEZ MD 305.1 TOBACCO ABUSE 01/10/2008 DARSHAN RODRIGUEZ MD 477.9 RHINITIS ALLERGIC 01/10/2008 DARSHAN RODRIGUEZ MD 305.1 TOBACCO ABUSE 01/10/2008 DARSHAN RODRIGUEZ MD 477.9 RHINITIS ALLERGIC 01/10/2008 DARSHAN RODRIGUEZ MD 305.1 TOBACCO ABUSE 01/10/2008 DARSHAN RODRIGUEZ MD 477.9 RHINITIS ALLERGIC 01/10/2008 JAYE RIGGS APRN 305.1 TOBACCO ABUSE 01/10/2008 JAYE RIGGS APRN 477.9 RHINITIS ALLERGIC 01/10/2008 JAYE RIGGS APRN 305.1 TOBACCO ABUSE 01/10/2008 JAYE RIGGS APRN 477.9 RHINITIS ALLERGIC 01/10/2008 JAYE RIGGS APRN 305.1 TOBACCO ABUSE 01/10/2008 JAYE RIGGS APRN 477.9 RHINITIS ALLERGIC 01/10/2008 ROGER DO, IRMA K 305.1 TOBACCO ABUSE 01/10/2008 ROGER DO, IRMA K 477.9 RHINITIS ALLERGIC 01/10/2008 JAYE RIGGS APRN 305.1 TOBACCO ABUSE 01/10/2008 JAYE RIGGS APRN 477.9 RHINITIS ALLERGIC 01/31/2008 V03.82 PCV7 PCV23, STREPTOCOCCUS PNEUMONIAE [PNEUMOCOCCUS] 01/31/2008 V04.81 NEED FOR PROPHYLACTIC VACCINATION AND INOCULATION AGAINST INFLUENZA 01/31/2008 JAYE RIGGS APRN V03.82 PCV7 PCV23, STREPTOCOCCUS PNEUMONIAE [PNEUMOCOCCUS] 01/31/2008 JAYE RIGGS APRN V04.81 NEED FOR PROPHYLACTIC VACCINATION AND INOCULATION AGAINST INFLUENZA 01/31/2008 JAYE RIGGS APRN V03.82 PCV7 PCV23, STREPTOCOCCUS PNEUMONIAE [PNEUMOCOCCUS] 01/31/2008 JAYE RIGGS APRN V04.81 NEED FOR PROPHYLACTIC VACCINATION AND INOCULATION AGAINST INFLUENZA 01/31/2008 V03.82 PCV7 PCV23, STREPTOCOCCUS PNEUMONIAE [PNEUMOCOCCUS] 01/31/2008 V04.81 NEED FOR PROPHYLACTIC VACCINATION AND INOCULATION AGAINST INFLUENZA 01/31/2008 V03.82 PCV7 PCV23, STREPTOCOCCUS PNEUMONIAE [PNEUMOCOCCUS] 01/31/2008 V04.81 NEED FOR PROPHYLACTIC VACCINATION AND INOCULATION AGAINST INFLUENZA 01/31/2008 V03.82 PCV7 PCV23, STREPTOCOCCUS PNEUMONIAE [PNEUMOCOCCUS] 01/31/2008 V04.81 NEED FOR PROPHYLACTIC VACCINATION AND INOCULATION AGAINST INFLUENZA 01/31/2008 V03.82 PCV7 PCV23, STREPTOCOCCUS PNEUMONIAE [PNEUMOCOCCUS] 01/31/2008 V04.81 NEED FOR PROPHYLACTIC VACCINATION AND INOCULATION AGAINST INFLUENZA 01/31/2008 V03.82 PCV7 PCV23, STREPTOCOCCUS PNEUMONIAE [PNEUMOCOCCUS] 01/31/2008 V04.81 NEED FOR PROPHYLACTIC VACCINATION AND INOCULATION AGAINST INFLUENZA 01/31/2008 V03.82 PCV7 PCV23, STREPTOCOCCUS PNEUMONIAE [PNEUMOCOCCUS] 01/31/2008 V04.81 NEED FOR PROPHYLACTIC VACCINATION AND INOCULATION AGAINST INFLUENZA 01/31/2008 JAYE RIGGS APRN V03.82 PCV7 PCV23, STREPTOCOCCUS PNEUMONIAE [PNEUMOCOCCUS] 01/31/2008 JAYE RIGGS APRN V04.81 NEED FOR PROPHYLACTIC VACCINATION AND INOCULATION AGAINST INFLUENZA 01/31/2008 DARSHAN RODRIGUEZ MD V03.82 PCV7 PCV23, STREPTOCOCCUS PNEUMONIAE [PNEUMOCOCCUS] 01/31/2008 DARSHAN RODRIGUEZ MD V04.81 NEED FOR PROPHYLACTIC VACCINATION AND INOCULATION AGAINST INFLUENZA 01/31/2008 DARSHAN RODRIGUEZ MD V03.82 PCV7 PCV23, STREPTOCOCCUS PNEUMONIAE [PNEUMOCOCCUS] 01/31/2008 DARSHAN RODRIGUEZ MD V04.81 NEED FOR PROPHYLACTIC VACCINATION AND INOCULATION AGAINST INFLUENZA 01/31/2008 DARSHAN RODRIGUEZ MD V03.82 PCV7 PCV23, STREPTOCOCCUS PNEUMONIAE [PNEUMOCOCCUS] 01/31/2008 DARSHAN RODRIGUEZ MD V04.81 NEED FOR PROPHYLACTIC VACCINATION AND INOCULATION AGAINST INFLUENZA 01/31/2008 JAYE RIGGS APRN V03.82 PCV7 PCV23, STREPTOCOCCUS PNEUMONIAE [PNEUMOCOCCUS] 01/31/2008 JAYE RIGGS APRN V04.81 NEED FOR PROPHYLACTIC VACCINATION AND INOCULATION AGAINST INFLUENZA 01/31/2008 JAYE RIGGS APRN V03.82 PCV7 PCV23, STREPTOCOCCUS PNEUMONIAE [PNEUMOCOCCUS] 01/31/2008 JAYE RIGGS APRN V04.81 NEED FOR PROPHYLACTIC VACCINATION AND INOCULATION AGAINST INFLUENZA 01/31/2008 JAYE RIGGS APRN V03.82 PCV7 PCV23, STREPTOCOCCUS PNEUMONIAE [PNEUMOCOCCUS] 01/31/2008 JAYE RIGGS APRN V04.81 NEED FOR PROPHYLACTIC VACCINATION AND INOCULATION AGAINST INFLUENZA 01/31/2008 IRMA ROGER DO V03.82 PCV7 PCV23, STREPTOCOCCUS PNEUMONIAE [PNEUMOCOCCUS] 01/31/2008 IRMA ROGER DO V04.81 NEED FOR PROPHYLACTIC VACCINATION AND INOCULATION AGAINST INFLUENZA 01/31/2008 JAYE RIGGS APRN V03.82 PCV7 PCV23, STREPTOCOCCUS PNEUMONIAE [PNEUMOCOCCUS] 01/31/2008 JAYE RIGGS APRN V04.81 NEED FOR PROPHYLACTIC VACCINATION AND INOCULATION AGAINST INFLUENZA 03/13/2008 840.4 ROTATOR CUFF ( CAPSULE) SPRAIN 03/13/2008 JAYE RIGGS APRN 840.4 ROTATOR CUFF (CAPSULE) SPRAIN 03/13/2008 JAYE RIGGS APRN 840.4 ROTATOR CUFF (CAPSULE) SPRAIN 03/13/2008 840.4 ROTATOR CUFF ( CAPSULE) SPRAIN 03/13/2008 840.4 ROTATOR CUFF ( CAPSULE) SPRAIN 03/13/2008 840.4 ROTATOR CUFF ( CAPSULE) SPRAIN 03/13/2008 840.4 ROTATOR CUFF ( CAPSULE) SPRAIN 03/13/2008 840.4 ROTATOR CUFF ( CAPSULE) SPRAIN 03/13/2008 840.4 ROTATOR CUFF ( CAPSULE) SPRAIN 03/13/2008 JAYE RIGGS APRN 840.4 ROTATOR CUFF (CAPSULE) SPRAIN 03/13/2008 DARSHAN ORDRIGUEZ MD 840.4 ROTATOR CUFF (CAPSULE) SPRAIN 03/13/2008 DARSHAN RODRIGUEZ MD 840.4 ROTATOR CUFF (CAPSULE) SPRAIN 03/13/2008 DARSHAN RODRIGUEZ MD 840.4 ROTATOR CUFF (CAPSULE) SPRAIN 03/13/2008 JAYE RIGGS APRN 840.4 ROTATOR CUFF (CAPSULE) SPRAIN 03/13/2008 JAYE RIGGS APRN 840.4 ROTATOR CUFF (CAPSULE) SPRAIN 03/13/2008 JAYE RIGGS APRN 840.4 ROTATOR CUFF (CAPSULE) SPRAIN 03/13/2008 IRMA ROGER DO 840.4 ROTATOR CUFF (CAPSULE) SPRAIN 03/13/2008 JAYE RIGGS APRN 840.4 ROTATOR CUFF (CAPSULE) SPRAIN 03/26/2008 250.02 DIABETES II UNCONTROLLED 03/26/2008 JAYE RIGGS APRN 250.02 DIABETES II UNCONTROLLED 03/26/2008 JAYE RIGGS APRN 250.02 DIABETES II UNCONTROLLED 03/26/2008 250.02 DIABETES II UNCONTROLLED 03/26/2008 250.02 DIABETES II UNCONTROLLED 03/26/2008 250.02 DIABETES II UNCONTROLLED 03/26/2008 250.02 DIABETES II UNCONTROLLED 03/26/2008 250.02 DIABETES II UNCONTROLLED 03/26/2008 250.02 DIABETES II UNCONTROLLED 03/26/2008 JAYE RIGGS APRN 250.02 DIABETES II UNCONTROLLED 03/26/2008 DARSHAN RODRIGUEZ MD 250.02 DIABETES II UNCONTROLLED 03/26/2008 DARSHAN RODRIGUEZ MD 250.02 DIABETES II UNCONTROLLED 03/26/2008 DARSHAN RODRIGUEZ MD 250.02 DIABETES II UNCONTROLLED 03/26/2008 JAYE RIGGS APRN 250.02 DIABETES II UNCONTROLLED 03/26/2008 JAYE RIGGS APRN 250.02 DIABETES II UNCONTROLLED 03/26/2008 JAYE RIGGS APRN 250.02 DIABETES II UNCONTROLLED 03/26/2008 IRMA ROGER DO 250.02 DIABETES II UNCONTROLLED 03/26/2008 JAYE RIGGS APRN 250.02 DIABETES II UNCONTROLLED 03/12/2009 V70.0 NORMAL ROUTINE HISTORY AND PHYSICAL 03/12/2009 JAYE RIGGS APRN V70.0 NORMAL ROUTINE HISTORY AND PHYSICAL 03/12/2009 JAYE RIGGS APRN V70.0 NORMAL ROUTINE HISTORY AND PHYSICAL 03/12/2009 V70.0 NORMAL ROUTINE HISTORY AND PHYSICAL 03/12/2009 V70.0 NORMAL ROUTINE HISTORY AND PHYSICAL 03/12/2009 V70.0 NORMAL ROUTINE HISTORY AND PHYSICAL 03/12/2009 V70.0 NORMAL ROUTINE HISTORY AND PHYSICAL 03/12/2009 V70.0 NORMAL ROUTINE HISTORY AND PHYSICAL 03/12/2009 V70.0 NORMAL ROUTINE HISTORY AND PHYSICAL 03/12/2009 JAYE RIGGS APRN V70.0 NORMAL ROUTINE HISTORY AND PHYSICAL 03/12/2009 DARSHAN RODRIGUEZ MD V70.0 NORMAL ROUTINE HISTORY AND PHYSICAL 03/12/2009 DARSHAN RODRIGUEZ MD V70.0 NORMAL ROUTINE HISTORY AND PHYSICAL 03/12/2009 DARSHAN RODRIGUEZ MD V70.0 NORMAL ROUTINE HISTORY AND PHYSICAL 03/12/2009 JAYE RIGGS APRN V70.0 NORMAL ROUTINE HISTORY AND PHYSICAL 03/12/2009 JAYE RIGGS APRN V70.0 NORMAL ROUTINE HISTORY AND PHYSICAL 03/12/2009 JAYE RIGGS APRN V70.0 NORMAL ROUTINE HISTORY AND PHYSICAL 03/12/2009 IRMA ROGER DO V70.0 NORMAL ROUTINE HISTORY AND PHYSICAL 03/12/2009 JAYE RIGGS APRN V70.0 NORMAL ROUTINE HISTORY AND PHYSICAL 08/06/2009 535.50 GASTRITIS UNSPEC 08/06/2009 JAYE RIGGS APRN 535.50 GASTRITIS UNSPEC 08/06/2009 JAYE RIGGS APRN 535.50 GASTRITIS UNSPEC 08/06/2009 535.50 GASTRITIS UNSPEC 08/06/2009 535.50 GASTRITIS UNSPEC 08/06/2009 535.50 GASTRITIS UNSPEC 08/06/2009 535.50 GASTRITIS UNSPEC 08/06/2009 535.50 GASTRITIS UNSPEC 08/06/2009 535.50 GASTRITIS UNSPEC 08/06/2009 JAYE RIGGS APRN 535.50 GASTRITIS UNSPEC 08/06/2009 DARSHAN RODRIGUEZ MD 535.50 GASTRITIS UNSPEC 08/06/2009 DARSHAN RODRIGUEZ MD 535.50 GASTRITIS UNSPEC 08/06/2009 DARSHAN RODRIGUEZ MD 535.50 GASTRITIS UNSPEC 08/06/2009 JAYE RIGGS APRN 535.50 GASTRITIS UNSPEC 08/06/2009 JAYE RIGGS APRN 535.50 GASTRITIS UNSPEC 08/06/2009 JAYE RIGGS APRN 535.50 GASTRITIS UNSPEC 08/06/2009 IRMA ROGER DO 535.50 GASTRITIS UNSPEC 08/06/2009 JAYE RIGGS APRN 535.50 GASTRITIS UNSPEC 11/08/2010 Ot 823.00 11/08/2010 Ot 910.0 11/08/2010 Ot 911.0 11/08/2010 Ot 913.0 11/08/2010 Ot 959.7 11/08/2010 Ot E000.8 11/08/2010 Ot E816.2 11/16/2010 Ot 823.00 11/16/2010 Ot E000.8 11/16/2010 Ot E816.2 11/16/2010 Ot V57.1 05/26/2011 302.72 PSYCHOSEXUAL DYSFUNCTION WITH INHIBITED SEXUAL EXCITEMENT 05/26/2011 465.9 UPPER RESPIRATORY INFECTION 05/26/2011 JAYE RIGGS APRN 302.72 PSYCHOSEXUAL DYSFUNCTION WITH INHIBITED SEXUAL EXCITEMENT 05/26/2011 JAYE RIGGS APRN 465.9 UPPER RESPIRATORY INFECTION 05/26/2011 JAYE RIGGS APRN 302.72 PSYCHOSEXUAL DYSFUNCTION WITH INHIBITED SEXUAL EXCITEMENT 05/26/2011 JAYE RIGGS APRN 465.9 UPPER RESPIRATORY INFECTION 05/26/2011 302.72 PSYCHOSEXUAL DYSFUNCTION WITH INHIBITED SEXUAL EXCITEMENT 05/26/2011 465.9 UPPER RESPIRATORY INFECTION 05/26/2011 302.72 PSYCHOSEXUAL DYSFUNCTION WITH INHIBITED SEXUAL EXCITEMENT 05/26/2011 465.9 UPPER RESPIRATORY INFECTION 05/26/2011 302.72 PSYCHOSEXUAL DYSFUNCTION WITH INHIBITED SEXUAL EXCITEMENT 05/26/2011 465.9 UPPER RESPIRATORY INFECTION 05/26/2011 302.72 PSYCHOSEXUAL DYSFUNCTION WITH INHIBITED SEXUAL EXCITEMENT 05/26/2011 465.9 UPPER RESPIRATORY INFECTION 05/26/2011 302.72 PSYCHOSEXUAL DYSFUNCTION WITH INHIBITED SEXUAL EXCITEMENT 05/26/2011 465.9 UPPER RESPIRATORY INFECTION 05/26/2011 302.72 PSYCHOSEXUAL DYSFUNCTION WITH INHIBITED SEXUAL EXCITEMENT 05/26/2011 465.9 UPPER RESPIRATORY INFECTION 05/26/2011 JAYE RIGGS APRN 302.72 PSYCHOSEXUAL DYSFUNCTION WITH INHIBITED SEXUAL EXCITEMENT 05/26/2011 JAYE RIGGS APRN 465.9 UPPER RESPIRATORY INFECTION 05/26/2011 DARSHAN RODRIGUEZ MD 302.72 PSYCHOSEXUAL DYSFUNCTION WITH INHIBITED SEXUAL EXCITEMENT 05/26/2011 DARSHAN RODRIGUEZ MD 465.9 UPPER RESPIRATORY INFECTION 05/26/2011 DARSHAN RODRIGUEZ MD 302.72 PSYCHOSEXUAL DYSFUNCTION WITH INHIBITED SEXUAL EXCITEMENT 05/26/2011 DARSHAN RODRIGUEZ MD 465.9 UPPER RESPIRATORY INFECTION 05/26/2011 DARSHAN RODRIGUEZ MD 302.72 PSYCHOSEXUAL DYSFUNCTION WITH INHIBITED SEXUAL EXCITEMENT 05/26/2011 DARSHAN RODRIGUEZ MD 465.9 UPPER RESPIRATORY INFECTION 05/26/2011 JAYE RIGGS APRN 302.72 PSYCHOSEXUAL DYSFUNCTION WITH INHIBITED SEXUAL EXCITEMENT 05/26/2011 JAYE RIGGS APRN 465.9 UPPER RESPIRATORY INFECTION 05/26/2011 JAYE RIGGS APRN 302.72 PSYCHOSEXUAL DYSFUNCTION WITH INHIBITED SEXUAL EXCITEMENT 05/26/2011 JAYE RIGGS APRN 465.9 UPPER RESPIRATORY INFECTION 05/26/2011 JAYE RIGGS APRN 302.72 PSYCHOSEXUAL DYSFUNCTION WITH INHIBITED SEXUAL EXCITEMENT 05/26/2011 JAYE RIGGS APRN 465.9 UPPER RESPIRATORY INFECTION 05/26/2011 ROGER DO, IRMA K 302.72 PSYCHOSEXUAL DYSFUNCTION WITH INHIBITED SEXUAL EXCITEMENT 05/26/2011 ROGER DO, IRMA K 465.9 UPPER RESPIRATORY INFECTION 05/26/2011 JAYE RIGGS APRN 302.72 PSYCHOSEXUAL DYSFUNCTION WITH INHIBITED SEXUAL EXCITEMENT 05/26/2011 JAYE RIGGS APRN 465.9 UPPER RESPIRATORY INFECTION 08/29/2011 Ot 079.99 VIRAL INFECTION NOS 08/29/2011 Ot 780.60 FEVER, UNSPECIFIED 09/01/2011 780.60 FEVER, UNSPECIFIED 09/01/2011 JAYE RIGGS APRN 780.60 FEVER, UNSPECIFIED 09/01/2011 JAYE RIGGS APRN 780.60 FEVER, UNSPECIFIED 09/01/2011 780.60 FEVER, UNSPECIFIED 09/01/2011 780.60 FEVER, UNSPECIFIED 09/01/2011 780.60 FEVER, UNSPECIFIED 09/01/2011 780.60 FEVER, UNSPECIFIED 09/01/2011 780.60 FEVER, UNSPECIFIED 09/01/2011 780.60 FEVER, UNSPECIFIED 09/01/2011 ONEIL HEAD PACKAGER, JAYE T 780.60 FEVER, UNSPECIFIED 09/01/2011 MICHAEL FERRO, DARSHAN 780.60 FEVER, UNSPECIFIED 09/01/2011 MICHAEL FERRO, DARSHAN 780.60 FEVER, UNSPECIFIED 09/01/2011 MICHAEL FERRO, DARSHAN 780.60 FEVER, UNSPECIFIED 09/01/2011 ONEIL HODGE, JAYE T 780.60 FEVER, UNSPECIFIED 09/01/2011 ONEIL HODGE, JAYE T 780.60 FEVER, UNSPECIFIED 09/01/2011 ONEIL JAIMESN, JAYE T 780.60 FEVER, UNSPECIFIED 09/01/2011 IRMA ROGER DO 780.60 FEVER, UNSPECIFIED 09/01/2011 ONEIL HODGE, JAYE T 780.60 FEVER, UNSPECIFIED 05/24/2012 414.00 CAD 05/24/2012 ONEIL HODGE, JAYE T 414.00 CAD 05/24/2012 ONEIL HODGE, JAYE T 414.00 CAD 05/24/2012 414.00 CAD 05/24/2012 414.00 CAD 05/24/2012 414.00 CAD 05/24/2012 414.00 CAD 05/24/2012 414.00 CAD 05/24/2012 414.00 CAD 05/24/2012 ONEIL HODGE, JAYE T 414.00 CAD 05/24/2012 MICHAEL FERRO, DARSHAN 414.00 CAD 05/24/2012 MICHAEL FERRO, DARSHAN 414.00 CAD 05/24/2012 MICHAEL FERRO, DARSHAN 414.00 CAD 05/24/2012 ONEIL HODGE, JAYE T 414.00 CAD 05/24/2012 ONEIL HODGE, JAYE T 414.00 CAD 05/24/2012 ONEIL HODGE, JAYE T 414.00 CAD 05/24/2012 IRMA ROGER DO 414.00 CAD 05/24/2012 ONEIL HODGE, JAYE T 414.00 CAD 06/05/2012 ONEIL HODGE, JAYE T 786.50 CHEST PAIN 06/05/2012 ONEIL HODGE, JAYE T 786.50 CHEST PAIN 06/05/2012 786.50 CHEST PAIN 06/05/2012 786.50 CHEST PAIN 06/05/2012 786.50 CHEST PAIN 06/05/2012 786.50 CHEST PAIN 06/05/2012 786.50 CHEST PAIN 06/05/2012 786.50 CHEST PAIN 06/05/2012 ONEIL HODGE, JAYE T 786.50 CHEST PAIN 06/05/2012 DARSHAN RODRIGUEZ MD 786.50 CHEST PAIN 06/05/2012 DARSHAN RODRIGUEZ MD 786.50 CHEST PAIN 06/05/2012 DARSHAN RODRIGUEZ MD 786.50 CHEST PAIN 06/05/2012 JAYE RIGGS APRN 786.50 CHEST PAIN 06/05/2012 JAYE RIGGS APRN 786.50 CHEST PAIN 06/05/2012 JAYE RIGGS APRN 786.50 CHEST PAIN 06/05/2012 IRMA ROGER DO 786.50 CHEST PAIN 06/05/2012 JAYE RIGGS APRN 786.50 CHEST PAIN 06/11/2012 Ot 250.00 DIAB CHETNA WO COMPL, TYPE II OR UNSPEC TY 06/11/2012 Ot 272.4 HYPERLIPIDEMIA NEC/NOS 06/11/2012 Ot 288.60 LEUKOCYTOSIS , UNSPECIFIED 06/11/2012 Ot 305.1 TOBACCO USE DISORDER 06/11/2012 Ot 311 DEPRESSIVE DISORDER NEC 06/11/2012 Ot 414.01 CORONARY ATHEROSCLEROSIS OF [place] CORON 06/11/2012 Ot 530.81 ESOPHAGEAL REFLUX 06/11/2012 Ot 786.50 CHEST PAIN NOS 06/11/2012 Ot V58.69 OTH MED,LT, CURRENT USE 10/17/2012 959.7 OTHER AND UNSPECIFIED INJURY TO KNEE LEG ANKLE AND FOOT 10/17/2012 959.7 OTHER AND UNSPECIFIED INJURY TO KNEE LEG ANKLE AND FOOT 10/17/2012 JAYE RIGGS APRN 959.7 OTHER AND UNSPECIFIED INJURY TO KNEE LEG ANKLE AND FOOT 10/17/2012 DARSHAN RODRIGUEZ MD 959.7 OTHER AND UNSPECIFIED INJURY TO KNEE LEG ANKLE AND FOOT 10/17/2012 DARSHAN RODRIGUEZ MD 959.7 OTHER AND UNSPECIFIED INJURY TO KNEE LEG ANKLE AND FOOT 10/17/2012 DARSHAN RODRIGUEZ MD 959.7 OTHER AND UNSPECIFIED INJURY TO KNEE LEG ANKLE AND FOOT 10/17/2012 JAYE RIGGS APRN 959.7 OTHER AND UNSPECIFIED INJURY TO KNEE LEG ANKLE AND FOOT 10/17/2012 JAYE RIGGS APRN 959.7 OTHER AND UNSPECIFIED INJURY TO KNEE LEG ANKLE AND FOOT 10/17/2012 JAYE RIGGS APRN 959.7 OTHER AND UNSPECIFIED INJURY TO KNEE LEG ANKLE AND FOOT 10/17/2012 IRMA ROGER DO 959.7 OTHER AND UNSPECIFIED INJURY TO KNEE LEG ANKLE AND FOOT 10/17/2012 JAYE RIGGS APRN 959.7 OTHER AND UNSPECIFIED INJURY TO KNEE LEG ANKLE AND FOOT 11/27/2012 401.9 HYPERTENSION, UNSPECIFIED ESSENTIAL 11/27/2012 JAYE RIGGS APRN 401.9 HYPERTENSION, UNSPECIFIED ESSENTIAL 11/27/2012 DARSHAN RODRIGUEZ MD 401.9 HYPERTENSION, UNSPECIFIED ESSENTIAL 11/27/2012 DARSHAN RODRIGUEZ MD 401.9 HYPERTENSION, UNSPECIFIED ESSENTIAL 11/27/2012 DARSHAN RODRIGUEZ MD 401.9 HYPERTENSION, UNSPECIFIED ESSENTIAL 11/27/2012 JAYE RIGGS APRN 401.9 HYPERTENSION, UNSPECIFIED ESSENTIAL 11/27/2012 JAYE RIGGS APRN 401.9 HYPERTENSION, UNSPECIFIED ESSENTIAL 11/27/2012 JAYE RIGGS APRN 401.9 HYPERTENSION, UNSPECIFIED ESSENTIAL 11/27/2012 IRMA ROGER DO 401.9 HYPERTENSION, UNSPECIFIED ESSENTIAL 11/27/2012 JAYE RIGGS APRN 401.9 HYPERTENSION, UNSPECIFIED ESSENTIAL 12/30/2012 GABI VALENCIA MD Ot V54.01 ENCNTR FOR REMOVAL OF INTERNAL FIXATION 03/21/2013 DARSHAN RODRIGUEZ MD 288.60 LEUKOCYTOSIS 03/21/2013 DARSHAN RODRIGUEZ MD 288.60 LEUKOCYTOSIS 03/21/2013 DARSHAN RODRIGUEZ MD 288.60 LEUKOCYTOSIS 03/21/2013 JAYE RIGGS APRN 288.60 LEUKOCYTOSIS 03/21/2013 JAYE RIGGS APRN 288.60 LEUKOCYTOSIS 03/21/2013 JAYE RIGGS APRN 288.60 LEUKOCYTOSIS 03/21/2013 IRMA ROGER DO K 288.60 LEUKOCYTOSIS 03/21/2013 JAYE RIGGS APRN 288.60 LEUKOCYTOSIS 09/24/2013 IRMA ROGER DO K 250.00 DIABETES II CONTROLLED (UNCOMPLICATED) 09/24/2013 JAYE RIGGS APRN 250.00 DIABETES II CONTROLLED (UNCOMPLICATED) 02/18/2014 JAYE RIGGS APRN 274.9 GOUT 09/01/2014 Ot 823.00 09/01/2014 Ot E000.8 09/01/2014 Ot E816.2 09/01/2014 Ot V72.83 09/01/2014 Ot V74.8 09/01/2014 Ot 786.50 09/01/2014 GABI VALENCIA MD Ot V54.01 09/01/2014 GABI VALENCIA MD Ot V72.84 09/01/2014 GABI VALENCIA MD Ot V74.8 09/01/2014 MICHAEL FERRO, DARSHAN Ruelas Ot 250.00 09/01/2014 MICHAEL FERRO, DARSHAN Ruelas Ot 288.60 09/01/2014 MICHAEL FERRO, DARSHAN Ruelas Ot 305.1 09/01/2014 MICHAEL FERRO, DARSHAN Ruelas Ot 401.9 09/01/2014 MICHAEL FERRO, DARSHAN Ruelas Ot 414.01 09/01/2014 MICHAEL FERRO, DARSHAN Ruelas Ot 530.81 09/01/2014 MICHAEL FERRO, DARSHAN Ruelas Ot 577.9 09/01/2014 MICHAEL FERRO, DARSHAN Ruelas Ot 715.90 09/01/2014 MICHAEL FERRO, DARSHAN Ruelas Ot 786.59 09/01/2014 MICHAEL FERRO, DARSHAN Ruelas Ot 786.6 09/01/2014 MICHAEL FERRO, DARSHAN Ruelas Ot V45.82 09/02/2014 Ot 823.00 09/02/2014 Ot E000.8 09/02/2014 Ot E816.2 09/02/2014 Ot V72.83 09/02/2014 Ot V74.8 09/02/2014 Ot 786.50 09/02/2014 ANNIE FERRO, GABI Katz Ot V54.01 09/02/2014 ANNIE FERRO, GABI L Ot V72.84 09/02/2014 ANNIE FERRO, GABI L Ot V74.8 09/03/2014 MICHAEL FERRO, DARSHAN Ruelas Ot 250.00 DIAB CHETNA WO COMPL, TYPE II OR UNSPEC TY 09/03/2014 MICHAEL FERRO, DARSHAN Ruelas Ot 288.60 LEUKOCYTOSIS, UNSPECIFIED 09/03/2014 MICHAEL FERRO, DARSHAN Ruelas Ot 305.1 TOBACCO USE DISORDER 09/03/2014 MICHAEL FERRO, DARSHAN Ruelas Ot 401.9 HYPERTENSION NOS 09/03/2014 MICHAEL FERRO, DRASHAN Ruelas Ot 414.01 CORONARY ATHEROSCLEROSIS OF [place] CORON 09/03/2014 MICHAEL FERRO, DARSHAN Ruelas Ot 530.81 ESOPHAGEAL REFLUX 09/03/2014 MICHAEL FERRO, DARSHAN Ruelas Ot 577.9 PANCREATIC DISEASE NOS 09/03/2014 MICHAEL FERRO, DARSHAN Ruelas Ot 715.90 OSTEOARTHROS NOS-UNSPEC 09/03/2014 MICHAEL FERRO, DARSHAN Ruelas Ot 786.59 CHEST PAIN NEC 09/03/2014 MICHAEL FERRO, DARSHAN Ruelas Ot 786.6 CHEST SWELLING/MASS/LUMP 09/03/2014 MICHAEL FERRO, DARSHAN Ruelas Ot V45.82 PERCUTANEOUS TRANSLUM CORON ANGIOPLASTY 09/03/2014 MICHAEL FERRO, DARSHAN Ruelas Ot V58.69 OT MED,LT,CURRENT USE 09/04/2014 MICHAEL FERRO, DARSHAN Ruelas Ot 250.00 09/04/2014 MICHAEL FERRO, DARSHAN Ruelas Ot 288.60 09/04/2014 MICHAEL FERRO, DARSHAN Ruelas Ot 305.1 09/04/2014 MICHAEL FERRO, DARSHAN Ruelas Ot 401.9 09/04/2014 MICHAEL FERRO, DARSHAN Ruelas Ot 414.01 09/04/2014 MICHAEL FERRO, DARSHAN Ruelas Ot 530.81 09/04/2014 MICHAEL FERRO, DARSHAN Ruelas Ot 577.9 09/04/2014 MICHAEL FERRO, DARSHAN Ruelas Ot 715.90 09/04/2014 MICHAEL FERRO, DARSHAN Ruelas Ot 786.59 09/04/2014 MICHAEL FERRO, DARSHAN Ruelas Ot 786.6 09/04/2014 MICHAEL FERRO, DARSHAN Ruelas Ot V45.82 11/05/2014 Ot 823.00 11/05/2014 Ot E000.8 11/05/2014 Ot E816.2 11/05/2014 Ot V72.83 11/05/2014 Ot V74.8 11/05/2014 Ot 786.50 11/05/2014 GABI VALENCIA MD Ot V54.01 11/05/2014 GABI VALENCIA MD L Ot V72.84 11/05/2014 GABI VALENCIA MD Ot V74.8 11/10/2014 Ot 823.00 11/10/2014 Ot E000.8 11/10/2014 Ot E816.2 11/10/2014 Ot V72.83 11/10/2014 Ot V74.8 11/10/2014 Ot 786.50 11/10/2014 GABI VALENCIA MD Ot V54.01 11/10/2014 GABI VALENCIA MD Ot V72.84 11/10/2014 ANNIE FERRO, GABI L Ot V74.8 11/11/2014 ESTEVAN FERRO, CHAPO J Ot 162.9 12/14/2014 Ot 823.00 12/14/2014 Ot E000.8 12/14/2014 Ot E816.2 12/14/2014 Ot V72.83 12/14/2014 Ot V74.8 12/14/2014 Ot 786.50 12/14/2014 ANNIE FERRO, GABI L Ot V54.01 12/14/2014 ANNIE FERRO, GABI L Ot V72.84 12/14/2014 ANNIE FERRO, GABI L Ot V74.8 12/14/2014 ESTEVAN FERRO, CHAPO J Ot 162.9 12/14/2014 BRANDY FERRO, CHAU-RJ Ot 162.3 12/14/2014 BRANDY FERRO, CHAU-RJ Ot 250.00 12/14/2014 BRANDY FERRO, CHAU-RJ Ot 272.4 12/14/2014 BRANDY FERRO, CHAU-RJ Ot 414.00 12/14/2014 BRANDY FERRO, CHAU-RJ Ot 793.0 12/14/2014 BRANDY FERRO, CHAU-RJ Ot V45.82 12/14/2014 BRANDY FERRO, CHAU-RJ Ot V58.69 12/16/2014 BRANDY FERRO, CHAU-RJ Ot 162.3 12/16/2014 BRANDY FERRO, CHAU-RJ Ot 250.00 12/16/2014 BRANDY FERRO, CHAU-RJ Ot 272.4 12/16/2014 BRANDY FERRO, CHAU-RJ Ot 414.00 12/16/2014 BRANDY FERRO, CHAU-RJ Ot 793.0 12/16/2014 BRANDY FERRO, CHAU-RJ Ot V45.82 12/16/2014 BRANDY FERRO, CHAU-RJ Ot V58.69 12/23/2014 BRANDY FERRO, CHAU-RJ Ot 162.3 12/23/2014 BRANDY FERRO, CHAU-RJ Ot 250.00 12/23/2014 BRANDY FERRO, CHAU-RJ Ot 272.4 12/23/2014 BRANDY FERRO, CHAU-RJ Ot 414.00 12/23/2014 BRANDY FERRO, CHAU-RJ Ot 793.0 12/23/2014 BRANDY FERRO, CHAU-RJ Ot V45.82 12/23/2014 BRANDY FERRO, CHAU-RJ Ot V58.69 12/30/2014 Ot 823.00 12/30/2014 Ot E000.8 12/30/2014 Ot E816.2 12/30/2014 Ot V72.83 12/30/2014 Ot V74.8 12/30/2014 Ot 786.50 12/30/2014 ANNIE FERRO, GABI L Ot V54.01 12/30/2014 ANNIE FERRO, GABI L Ot V72.84 12/30/2014 ANNIE FERRO, GABI L Ot V74.8 12/30/2014 ESTEVAN FERRO, CHAPO J Ot 162.9 12/30/2014 BRANDY FERRO, CHAU-RJ Ot 162.3 12/30/2014 BRANDY FERRO, CHAU-RJ Ot 250.00 12/30/2014 BRANDY FERRO, CHAU-RJ Ot 272.4 12/30/2014 BRANDY FERRO, CHAU-RJ Ot 414.00 12/30/2014 BRANDY FERRO, CHAU-RJ Ot 793.0 12/30/2014 BRANDY FERRO, CHAU-RJ Ot V45.82 12/30/2014 BRANDY FERRO, KANDI-RJ Ot V58.69 12/30/2014 TEREZA HILAH S CABLE TELEVISION TECHNICIAN Ot 162.3 12/30/2014 TEREZA, HILAH S CABLE TELEVISION TECHNICIAN Ot 250.00 12/30/2014 TEREZA HILAH S CABLE TELEVISION TECHNICIAN Ot 272.4 12/30/2014 TEREZA HILAH S CABLE TELEVISION TECHNICIAN Ot 414.00 12/30/2014 STARKS HILAH S CABLE TELEVISION TECHNICIAN Ot 793.0 12/30/2014 STARKS, HILAH S CABLE TELEVISION TECHNICIAN Ot V45.82 12/30/2014 TEREZA HILAH S CABLE TELEVISION TECHNICIAN Ot V58.69 01/13/2015 BRANDY FERRO, KANDI-RJ Ot 162.3 01/13/2015 BRANDY FERRO, CHAU-RJ Ot 250.00 01/13/2015 BRANDY FERRO, CHAU-RJ Ot 272.4 01/13/2015 BRANDY FERRO, KANDI-RJ Ot 414.00 01/13/2015 BRANDY FERRO, CHAU-RJ Ot 793.0 01/13/2015 BRANDY FERRO, CHAU-RJ Ot V45.82 01/13/2015 BRANDY FERRO, KANDI-RJ Ot V58.69 01/14/2015 BRANDY FERRO, KANDI-RJ Ot 162.3 01/14/2015 BRANDY FERRO, CHAU-RJ Ot 250.00 01/14/2015 BRANDY FERRO, CHAU-RJ Ot 272.4 01/14/2015 BRANDY FERRO, CHAU-RJ Ot 414.00 01/14/2015 BRANDY FERRO, KANDI-RJ Ot 793.0 01/14/2015 BRANDY FERRO, KANDI-RJ Ot V45.82 01/14/2015 JAMMIE NAVA MD Ot V58.69 01/20/2015 JAMMIE NAVA MD Ot 162.3 MAL LAURA UPPER LOBE LUNG 01/20/2015 BRANDY FERRO, JAMMIE Ot 250.00 DIAB CHETNA WO COMPL, TYPE II OR UNSPEC TY 01/20/2015 JAMMIE NAVA MD Ot 272.4 HYPERLIPIDEMIA NEC/NOS 01/20/2015 JAMMIE NAVA MD Ot 414.00 CORON ATHEROSCLER NOS TYPE VESSEL, NATIV 01/20/2015 JAMMIE NAVA MD Ot 793.0 NOSP (ABN) FINDINGS ON RADIOLOGICAL OT 01/20/2015 JAMMIE NAVA MD Ot V45.82 PERCUTANEOUS TRANSLUM CORON ANGIOPLASTY 01/20/2015 JAMMIE NAVA MD Ot V58.11 ENCOUNTER FOR ANTINEOPLASTIC CHEMOTHERAP 01/20/2015 JAMMIE NAVA MD Ot V58.69 OT MED,LT,CURRENT USE 02/24/2015 Ot 823.00 02/24/2015 Ot E000.8 02/24/2015 Ot E816.2 02/24/2015 Ot V72.83 02/24/2015 Ot V74.8 02/24/2015 Ot 786.50 02/24/2015 ANNIE FERRO, GABI Katz Ot V54.01 02/24/2015 ANNIE FERRO, GABI Katz Ot V72.84 02/24/2015 ANNIE FERRO, GABI Katz Ot V74.8 02/24/2015 ESTEVAN FERRO, CHAPO J Ot 162.9 02/24/2015 VISHNU STARKS CABLE TELEVISION TECHNICIAN Ot 162.3 02/24/2015 VISHNU STARKS CABLE TELEVISION TECHNICIAN Ot 250.00 02/24/2015 VISHNU STARKS CABLE TELEVISION TECHNICIAN Ot 272.4 02/24/2015 VISHNU STARKS CABLE TELEVISION TECHNICIAN Ot 414.00 02/24/2015 VISHNU STARKS CABLE TELEVISION TECHNICIAN Ot 793.0 02/24/2015 VISHNU STARKS CABLE TELEVISION TECHNICIAN Ot V45.82 02/24/2015 VISHNU STARKS CABLE TELEVISION TECHNICIAN Ot V58.69 02/24/2015 BRANDY FERRO, JAMMIE Ot 162.3 02/24/2015 JAMMIE NAVA MD Ot 250.00 02/24/2015 JAMMIE NAVA MD Ot 272.4 02/24/2015 LILY NAVA MDRJ Ot 414.00 02/24/2015 BRANDY FERRO, CHAU-RJ Ot 793.0 02/24/2015 BRANDY FERRO, CHAU-RJ Ot V45.82 02/24/2015 BRANDY FERRO, CHAU-RJ Ot V58.69 02/24/2015 ESTEVAN FERRO, CHAPO J Ot 162.9 03/23/2015 BRANDY FERRO, CHAU-RJ Ot 162.3 03/23/2015 BRANDY FERRO, CHAU-RJ Ot 250.00 03/23/2015 BRANDY FERRO, CHAU-RJ Ot 272.4 03/23/2015 BRANDY FERRO, CHAU-RJ Ot 414.00 03/23/2015 BRANDY FERRO, CHAU-RJ Ot 793.0 03/23/2015 BRANDY FERRO, CHAU-RJ Ot V45.82 03/23/2015 BRANDY FERRO, CHAU-RJ Ot V58.69 03/30/2015 Ot 823.00 03/30/2015 Ot E000.8 03/30/2015 Ot E816.2 03/30/2015 Ot V72.83 03/30/2015 Ot V74.8 03/30/2015 Ot 786.50 03/30/2015 ANNIE FERRO, GABI L Ot V54.01 03/30/2015 ANNIE FERRO, GABI L Ot V72.84 03/30/2015 ANNIE FERRO, GABI L Ot V74.8 03/30/2015 ESTEVAN FERRO, CHAPO J Ot 162.9 03/30/2015 VISHNU STARKS CABLE TELEVISION TECHNICIAN Ot 162.3 03/30/2015 VISHNU STARKS CABLE TELEVISION TECHNICIAN Ot 250.00 03/30/2015 VISHNU STARKS CABLE TELEVISION TECHNICIAN Ot 272.4 03/30/2015 VISHNU STARKS CABLE TELEVISION TECHNICIAN Ot 414.00 03/30/2015 VISHNU STARKS CABLE TELEVISION TECHNICIAN Ot 793.0 03/30/2015 VISHNU STARKS CABLE TELEVISION TECHNICIAN Ot V45.82 03/30/2015 VISHNU STARKS CABLE TELEVISION TECHNICIAN Ot V58.69 03/30/2015 BRANDY FERRO, JAMMIE Ot C34.10 03/30/2015 BRANDY FERRO, JAMMIE Ot E11.9 03/30/2015 BRANDY FERRO, JAMMIE Ot E78.5 03/30/2015 BRANDY FERRO, JAMMIE Ot I25.10 03/30/2015 JAMMIE NAVA MD Ot Z51.11 03/30/2015 JAMMIE NAVA MD Ot Z79.899 03/30/2015 JAMMIE NAVA MD Ot Z98.61 04/27/2015 JAMMIE NAVA MD, Ot C34.10 MALIGNANT NEOPLASM OF UPPER LOBE, UNSP B 04/27/2015 JAMMIE NVAA MD Ot E11.9 TYPE 2 DIABETES MELLITUS WITHOUT COMPLIC 04/27/2015 JAMMIE NAVA MD Ot E78.5 HYPERLIPIDEMIA, UNSPECIFIED 04/27/2015 JAMMIE NAVA MD, Ot I25.10 ATHSCL HEART DISEASE OF [place] CORONARY 04/27/2015 JAMMIE NAVA MD, Ot Z51.11 ENCOUNTER FOR ANTINEOPLASTIC CHEMOTHERAP 04/27/2015 JAMMIE NAVA MD Ot Z79.899 OTHER FOREMAN/PROJECT MANAGER (CURRENT) DRUG THERAPY 04/27/2015 JAMMIE NAVA MD, Ot Z98.61 CORONARY ANGIOPLASTY STATUS 07/28/2016 JAMMIE NAVA MD, Ot C34.10 MALIGNANT NEOPLASM OF UPPER LOBE, UNSP B 07/28/2016 JAMMIE NAVA MD Ot E11.9 TYPE 2 DIABETES MELLITUS WITHOUT COMPLIC 07/28/2016 JAMMIE NAVA MD, Ot E78.5 HYPERLIPIDEMIA, UNSPECIFIED 07/28/2016 JAMMIE NAVA MD, Ot I25.10 ATHSCL HEART DISEASE OF [place] CORONARY 07/28/2016 JAMMIE NAVA MD Ot Z51.11 ENCOUNTER FOR ANTINEOPLASTIC CHEMOTHERAP 07/28/2016 JAMMIE NAVA MD, Ot Z79.899 OTHER FOREMAN/PROJECT MANAGER (CURRENT) DRUG THERAPY 07/28/2016 JAMMIE NAVA MD, Ot Z98.61 CORONARY ANGIOPLASTY STATUS 07/28/2016 MILE CHOWDHURY DO Ot Z01.818 ENCOUNTER FOR OTHER PREPROCEDURAL EXAMIN 07/28/2016 MILE CHOWDHURY DO Ot Z85.118 PERSONAL HISTORY OF MALIGNANT NEOPLASM O 07/31/2016 Ot 786.50 CHEST PAIN NOS 07/31/2016 GABI VALENCIA MD Ot V54.01 ENCNTR FOR REMOVAL OF INTERNAL FIXATION 07/31/2016 GABI VALENCIA MD Ot V72.84 EXAM PRE-OPERATIVE NOS 07/31/2016 GABI VALENCIA MD Ot V74.8 SCREEN-BACTERIAL DIS NEC 07/31/2016 CHAPO BARRETO MD Ot 162.9 MAL LAURA BRONCH/LUNG NOS 07/31/2016 VISHNU STARKS CABLE TELEVISION TECHNICIAN Ot 162.3 MAL LAURA UPPER LOBE LUNG 07/31/2016 VISHNU STARKS CABLE TELEVISION TECHNICIAN Ot 250.00 DIAB CHETNA WO COMPL, TYPE II OR UNSPEC TY 07/31/2016 VISHNU STARKS CABLE TELEVISION TECHNICIAN Ot 272.4 HYPERLIPIDEMIA NEC/NOS 07/31/2016 VIHSNU STARKS CABLE TELEVISION TECHNICIAN Ot 414.00 CORON ATHEROSCLER NOS TYPE VESSEL, NATIV 07/31/2016 VISHNU STARKS CABLE TELEVISION TECHNICIAN Ot 793.0 NOSP (ABN) FINDINGS ON RADIOLOGICAL OT 07/31/2016 VISHNU STARKSP Ot V45.82 PERCUTANEOUS TRANSLUM CORON ANGIOPLASTY 07/31/2016 VISHNU STARKSP Ot V58.69 OTH MED,LT,CURRENT USE 07/31/2016 JAMMIE NAVA MD Ot C34.10 MALIGNANT NEOPLASM OF UPPER LOBE, UNSP B 07/31/2016 JAMMIE NAVA MD Ot E11.9 TYPE 2 DIABETES MELLITUS WITHOUT COMPLIC 07/31/2016 JAMMIE NAVA MD Ot E78.5 HYPERLIPIDEMIA, UNSPECIFIED 07/31/2016 JAMMIE NAVA MD Ot I25.10 ATHSCL HEART DISEASE OF [place] CORONARY 07/31/2016 JAMMIE NAVA MD Ot Z51.11 ENCOUNTER FOR ANTINEOPLASTIC CHEMOTHERAP 07/31/2016 JAMMIE NAVA MD Ot Z79.899 OTHER ASSISTED (CURRENT) DRUG THERAPY 07/31/2016 JAMMIE NAVA MD Ot Z98.61 CORONARY ANGIOPLASTY STATUS 07/31/2016 Ot 786.50 CHEST PAIN NOS 07/31/2016 GABI VALENCIA MD Ot V54.01 ENCNTR FOR REMOVAL OF INTERNAL FIXATION 07/31/2016 GABI VALENCIA MD Ot V72.84 EXAM PRE-OPERATIVE NOS 07/31/2016 GABI VALENCIA MD Ot V74.8 SCREEN-BACTERIAL DIS NEC 07/31/2016 CHAPO BARRETO MD Ot 162.9 MAL LAURA BRONCH/LUNG NOS 07/31/2016 VISHNU STARKS CABLE TELEVISION TECHNICIAN Ot 162.3 MAL LAURA UPPER LOBE LUNG 07/31/2016 VISHNU STARKS CABLE TELEVISION TECHNICIAN Ot 250.00 DIAB CHETNA WO COMPL, TYPE II OR UNSPEC TY 07/31/2016 VISHNU STARKS CABLE TELEVISION TECHNICIAN Ot 272.4 HYPERLIPIDEMIA NEC/NOS 07/31/2016 VISHNU STARKS CABLE TELEVISION TECHNICIAN Ot 414.00 CORON ATHEROSCLER NOS TYPE VESSEL, NATIV 07/31/2016 VISHNU STARKS CABLE TELEVISION TECHNICIAN Ot 793.0 NOSP (ABN) FINDINGS ON RADIOLOGICAL OT 07/31/2016 VISHNU STARKS CABLE TELEVISION TECHNICIAN Ot V45.82 PERCUTANEOUS TRANSLUM CORON ANGIOPLASTY 07/31/2016 VISHNU STARKS CABLE TELEVISION TECHNICIAN Ot V58.69 OT MED,LT,CURRENT USE 07/31/2016 JAMMIE NAVA MD Ot C34.10 MALIGNANT NEOPLASM OF UPPER LOBE, UNSP B 07/31/2016 JAMMIE NAVA MD Ot E11.9 TYPE 2 DIABETES MELLITUS WITHOUT COMPLIC 07/31/2016 JAMMIE NAVA MD, Ot E78.5 HYPERLIPIDEMIA, UNSPECIFIED 07/31/2016 JAMMIE NAVA MD, Ot I25.10 ATHSCL HEART DISEASE OF [place] CORONARY 07/31/2016 JAMMIE NAVA MD Ot Z51.11 ENCOUNTER FOR ANTINEOPLASTIC CHEMOTHERAP 07/31/2016 JAMMIE NAVA MD Ot Z79.899 OTHER FOREMAN/PROJECT MANAGER (CURRENT) DRUG THERAPY 07/31/2016 JAMMIE NAVA MD Ot Z98.61 CORONARY ANGIOPLASTY STATUS 07/31/2016 MILE CHOWDHURY DO, Ot E11.9 TYPE 2 DIABETES MELLITUS WITHOUT COMPLIC 07/31/2016 MILE CHOWHDURY DO Ot I87.2 VENOUS INSUFFICIENCY (CHRONIC) (PERIPHER 07/31/2016 MILE CHOWDHURY DO, Ot Z11.2 ENCOUNTER FOR SCREENING FOR OTHER BACTER 07/31/2016 MILE CHOWDHURY DO Ot Z85.118 PERSONAL HISTORY OF MALIGNANT NEOPLASM O 07/31/2016 MILE CHOWDHURY DO, Ot Z01.818 ENCOUNTER FOR OTHER PREPROCEDURAL EXAMIN 07/31/2016 MILE CHOWDHURY DO Ot Z85.118 PERSONAL HISTORY OF MALIGNANT NEOPLASM O 08/01/2016 MILE CHOWDHURY DO Ot E11.9 TYPE 2 DIABETES MELLITUS WITHOUT COMPLIC 08/01/2016 MILE CHOWDHURY DO Ot I87.2 VENOUS INSUFFICIENCY (CHRONIC) (PERIPHER 08/01/2016 MILE CHOWDHURY DO Ot Z11.2 ENCOUNTER FOR SCREENING FOR OTHER BACTER 08/01/2016 MILE CHOWDHURY DO B Ot Z85.118 PERSONAL HISTORY OF MALIGNANT NEOPLASM O 09/12/2016 Ot 786.50 CHEST PAIN NOS 09/12/2016 GABI VALENCIA MD Ot V54.01 ENCNTR FOR REMOVAL OF INTERNAL FIXATION 09/12/2016 GABI VALENCIA MD Ot V72.84 EXAM PRE-OPERATIVE NOS 09/12/2016 GABI VALENCIA MD Ot V74.8 SCREEN-BACTERIAL DIS NEC 09/12/2016 ESTEVAN FERRO, CHAPO J Ot 162.9 MAL LAURA BRONCH/LUNG NOS 09/12/2016 VISHNU STARKS CABLE TELEVISION TECHNICIAN Ot 162.3 MAL LAURA UPPER LOBE LUNG 09/12/2016 VISHNU STARKS CABLE TELEVISION TECHNICIAN Ot 250.00 DIAB CHETNA WO COMPL, TYPE II OR UNSPEC TY 09/12/2016 VISHNU STARKS CABLE TELEVISION TECHNICIAN Ot 272.4 HYPERLIPIDEMIA NEC/NOS 09/12/2016 VISHNU STARKS CABLE TELEVISION TECHNICIAN Ot 414.00 CORON ATHEROSCLER NOS TYPE VESSEL, NATIV 09/12/2016 VISHNU STARKS CABLE TELEVISION TECHNICIAN Ot 793.0 NOSP (ABN) FINDINGS ON RADIOLOGICAL OT 09/12/2016 VISHNU STARKSP Ot V45.82 PERCUTANEOUS TRANSLUM CORON ANGIOPLASTY 09/12/2016 VISHNU STARKSP Ot V58.69 OTH MED,LT,CURRENT USE 09/12/2016 JAMMIE NAVA MD Ot C34.10 MALIGNANT NEOPLASM OF UPPER LOBE, UNSP B 09/12/2016 JAMMIE NAVA MD Ot E11.9 TYPE 2 DIABETES MELLITUS WITHOUT COMPLIC 09/12/2016 JAMMIE NAVA MD Ot E78.5 HYPERLIPIDEMIA, UNSPECIFIED 09/12/2016 JAMMIE NAVA MD Ot I25.10 ATHSCL HEART DISEASE OF [place] CORONARY 09/12/2016 JAMMIE NAVA MD, Ot Z51.11 ENCOUNTER FOR ANTINEOPLASTIC CHEMOTHERAP 09/12/2016 JAMMIE NAVA MD, Ot Z79.899 OTHER FOREMAN/PROJECT MANAGER (CURRENT) DRUG THERAPY 09/12/2016 JAMMIE NAVA MD, Ot Z98.61 CORONARY ANGIOPLASTY STATUS 09/12/2016 SRIDHAR BLACK Ot E11.9 TYPE 2 DIABETES MELLITUS WITHOUT COMPLIC 09/12/2016 SRIDHAR BLACK CABLE TELEVISION TECHNICIAN Ot I25.10 ATHSCL HEART DISEASE OF [place] CORONARY 09/12/2016 CHRISTISRIDHAR CLARK CABLE TELEVISION TECHNICIAN Ot 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 [place] 09/12/2016 SRIDHAR BLACK CABLE TELEVISION TECHNICIAN Ot R06.02 SHORTNESS OF BREATH 09/12/2016 CHRISTISRIDHAR CLARK CABLE TELEVISION TECHNICIAN Ot R07.89 OTHER CHEST PAIN 09/12/2016 CHRISTISRIDHAR CLARK CABLE TELEVISION TECHNICIAN Ot T82.855A STENOSIS OF CORONARY ARTERY STENT, INITI 09/12/2016 CHRISTISRIDHAR CLARK CABLE TELEVISION TECHNICIAN Ot 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 09/12/2016 CHRISTISRIDHAR CLARK CABLE TELEVISION TECHNICIAN Ot Z79.899 OTHER FOREMAN/PROJECT MANAGER (CURRENT) DRUG THERAPY 09/12/2016 CHRISTISRIDHAR CLARK CABLE TELEVISION TECHNICIAN Ot Z82.49 FAMILY HX OF [place] HEART DIS AND OTH DI 09/12/2016 CHRISTISRIDHAR CLARK CABLE TELEVISION TECHNICIAN Ot Z85.118 PERSONAL HISTORY OF MALIGNANT NEOPLASM O 09/12/2016 CHRISTISRIDHAR CLARK CABLE TELEVISION TECHNICIAN Ot Z87.891 PERSONAL HISTORY OF NICOTINE DEPENDENCE 09/12/2016 CHRISTISRIDHAR CLARK CABLE TELEVISION TECHNICIAN Ot Z90.2 ACQUIRED ABSENCE OF LUNG [PART OF] 09/12/2016 CHRISTISRIDHAR CLARK CABLE TELEVISION TECHNICIAN Ot Z92.21 PERSONAL HISTORY OF ANTINEOPLASTIC CHEMO 09/21/2016 Ot 786.50 CHEST PAIN NOS 09/21/2016 GABI VALENCIA MD Ot V54.01 ENCNTR FOR REMOVAL OF INTERNAL FIXATION 09/21/2016 GABI VALENCIA MD Ot V72.84 EXAM PRE-OPERATIVE NOS 09/21/2016 GABI VALENCIA MD Ot V74.8 SCREEN-BACTERIAL DIS NEC 09/21/2016 CHAPO BARRETO MD Ot 162.9 MAL LAURA BRONCH/LUNG NOS 09/21/2016 VISHNU STARKS CABLE TELEVISION TECHNICIAN Ot 162.3 MAL LAURA UPPER LOBE LUNG 09/21/2016 VISHNU STARKS CABLE TELEVISION TECHNICIAN Ot 250.00 DIAB CHETNA WO COMPL, TYPE II OR UNSPEC TY 09/21/2016 VISHNU STARKS CABLE TELEVISION TECHNICIAN Ot 272.4 HYPERLIPIDEMIA NEC/NOS 09/21/2016 VISHNU STARKS CABLE TELEVISION TECHNICIAN Ot 414.00 CORON ATHEROSCLER NOS TYPE VESSEL, NATIV 09/21/2016 VISHNU STARKS CABLE TELEVISION TECHNICIAN Ot 793.0 NOSP (ABN) FINDINGS ON RADIOLOGICAL OT 09/21/2016 VISHNU STARKS CABLE TELEVISION TECHNICIAN Ot V45.82 PERCUTANEOUS TRANSLUM CORON ANGIOPLASTY 09/21/2016 VISHNU STARKS CABLE TELEVISION TECHNICIAN Ot V58.69 OTH MED,LT,CURRENT USE 09/21/2016 JAMMIE NAVA MD Ot C34.10 MALIGNANT NEOPLASM OF UPPER LOBE, UNSP B 09/21/2016 JAMMIE NAVA MD Ot E11.9 TYPE 2 DIABETES MELLITUS WITHOUT COMPLIC 09/21/2016 JAMMIE NAVA MD Ot E78.5 HYPERLIPIDEMIA, UNSPECIFIED 09/21/2016 JAMMIE NAVA MD, Ot I25.10 ATHSCL HEART DISEASE OF [place] CORONARY 09/21/2016 JAMMIE NAVA MD Ot Z51.11 ENCOUNTER FOR ANTINEOPLASTIC CHEMOTHERAP 09/21/2016 JAMMIE NAVA MD Ot Z79.899 OTHER FOREMAN/PROJECT MANAGER (CURRENT) DRUG THERAPY 09/21/2016 JAMMIE NAVA MD Ot Z98.61 CORONARY ANGIOPLASTY STATUS 09/21/2016 SRIDHAR BLACK CABLE TELEVISION TECHNICIAN Ot E11.9 TYPE 2 DIABETES MELLITUS WITHOUT COMPLIC 09/21/2016 SRIDHAR BLACK CABLE TELEVISION TECHNICIAN Ot I25.10 ATHSCL HEART DISEASE OF [place] CORONARY 09/21/2016 SRIDHAR BLACK CABLE TELEVISION TECHNICIAN Ot 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 [place] 09/21/2016 SRIDHAR BLACK CABLE TELEVISION TECHNICIAN Ot R06.02 SHORTNESS OF BREATH 09/21/2016 SRIDHAR BLACK CABLE TELEVISION TECHNICIAN Ot R07.89 OTHER CHEST PAIN 09/21/2016 SRIDHAR BLACK CABLE TELEVISION TECHNICIAN Ot T82.855A STENOSIS OF CORONARY ARTERY STENT, INITI 09/21/2016 SRIDHAR BLACK CABLE TELEVISION TECHNICIAN Ot 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 09/21/2016 SRIDHAR BLACK CABLE TELEVISION TECHNICIAN Ot Z79.899 OTHER ASSISTED (CURRENT) DRUG THERAPY 09/21/2016 SRIDHAR BLACK CABLE TELEVISION TECHNICIAN Ot Z82.49 FAMILY HX OF [place] HEART DIS AND OTH DI 09/21/2016 SRIDHAR BLACK CABLE TELEVISION TECHNICIAN Ot Z85.118 PERSONAL HISTORY OF MALIGNANT NEOPLASM O 09/21/2016 SRIDHAR BLACK CABLE TELEVISION TECHNICIAN Ot Z87.891 PERSONAL HISTORY OF NICOTINE DEPENDENCE 09/21/2016 SRIDHAR BLACK CABLE TELEVISION TECHNICIAN Ot Z90.2 ACQUIRED ABSENCE OF LUNG [PART OF] 09/21/2016 SRIDHAR BLACK CABLE TELEVISION TECHNICIAN Ot Z92.21 PERSONAL HISTORY OF ANTINEOPLASTIC CHEMO 09/22/2016 AKANKSHA FERRO FACC, ALI FACP CCDS Ot C34.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, LEFT B 09/22/2016 AKANKSHA FERRO FACC, ALI FACP CCDS Ot E13.9 OTHER SPECIFIED DIABETES MELLITUS WITHOU 09/22/2016 AKANKSHA CHAMBERSC, ALI FACP CCDS Ot E78.4 OTHER HYPERLIPIDEMIA 09/22/2016 AKANKSHA FERRO FACC, ALI FACP CCDS Ot I25.10 ATHSCL HEART DISEASE OF [place] CORONARY 09/22/2016 AKANKSHA FERRO FACC, ALI FACP CCDS Ot R00.2 PALPITATIONS 09/22/2016 AKANKSHA FERRO FACC, ALI FACP CCDS Ot R06.02 SHORTNESS OF BREATH 09/22/2016 AKANKSHA FERRO FACC, ALI FACP CCDS Ot Z87.891 PERSONAL HISTORY OF NICOTINE DEPENDENCE 09/23/2016 SRIDHAR BLACK CABLE TELEVISION TECHNICIAN Ot E11.9 TYPE 2 DIABETES MELLITUS WITHOUT COMPLIC 09/23/2016 SRIDHAR BLACK CABLE TELEVISION TECHNICIAN Ot I25.10 ATHSCL HEART DISEASE OF [place] CORONARY 09/23/2016 SRIDHAR BLACK CABLE TELEVISION TECHNICIAN Ot 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 [place] 09/23/2016 SRIDHAR BLACK CABLE TELEVISION TECHNICIAN Ot R06.02 SHORTNESS OF BREATH 09/23/2016 SRIDHAR BLACK CABLE TELEVISION TECHNICIAN Ot R07.89 OTHER CHEST PAIN 09/23/2016 SRIDHAR BLACK CABLE TELEVISION TECHNICIAN Ot T82.855A STENOSIS OF CORONARY ARTERY STENT, INITI 09/23/2016 SRIDHAR BLACK CABLE TELEVISION TECHNICIAN Ot Z79.84 ASSISTED (CURRENT) USE OF ORAL HYPOGLYC 09/23/2016 SRIDHAR BLACK CABLE TELEVISION TECHNICIAN Ot Z79.899 OTHER FOREMAN/PROJECT MANAGER (CURRENT) DRUG THERAPY 09/23/2016 SRIDHAR BLACK CABLE TELEVISION TECHNICIAN Ot Z82.49 FAMILY HX OF [place] HEART DIS AND OTH DI 09/23/2016 SRIDHAR BLACK CABLE TELEVISION TECHNICIAN Ot Z85.118 PERSONAL HISTORY OF MALIGNANT NEOPLASM O 09/23/2016 SRIDHAR BLACK CABLE TELEVISION TECHNICIAN Ot Z87.891 PERSONAL HISTORY OF NICOTINE DEPENDENCE 09/23/2016 SRIDHAR BLACK CABLE TELEVISION TECHNICIAN Ot Z90.2 ACQUIRED ABSENCE OF LUNG [PART OF] 09/23/2016 SRIDHAR BLACK CABLE TELEVISION TECHNICIAN Ot Z92.21 PERSONAL HISTORY OF ANTINEOPLASTIC CHEMO 10/03/2016 AKANKSHA FERRO FACC, ALI FACP CCDS Ot C34.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, LEFT B 10/03/2016 AKANKSHA CHAMBERSC, ALI FACP CCDS Ot E13.9 OTHER SPECIFIED DIABETES MELLITUS WITHOU 10/03/2016 AKANKSHA FERRO FACC, ALI FACP CCDS Ot E78.4 OTHER HYPERLIPIDEMIA 10/03/2016 AKANKSHA CHAMBERSC, ALI FACP CCDS Ot I25.10 ATHSCL HEART DISEASE OF [place] CORONARY 10/03/2016 AKANKSHA CHAMBERSC, ALI FACP CCDS Ot R00.2 PALPITATIONS 10/03/2016 AKANKSHA CHAMBERSC, ALI FACP CCDS Ot R06.02 SHORTNESS OF BREATH 10/03/2016 AKANKSHA FERRO FACC, ALI FACP CCDS Ot Z87.891 PERSONAL HISTORY OF NICOTINE DEPENDENCE 10/05/2016 SRIDHAR BLACK CABLE TELEVISION TECHNICIAN Ot E11.9 TYPE 2 DIABETES MELLITUS WITHOUT COMPLIC 10/05/2016 SRIDHAR BLACK CABLE TELEVISION TECHNICIAN Ot I25.10 ATHSCL HEART DISEASE OF [place] CORONARY 10/05/2016 SRIDHAR BLACK CABLE TELEVISION TECHNICIAN Ot 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 [place] 10/05/2016 SRIDHAR BLACK CABLE TELEVISION TECHNICIAN Ot R06.02 SHORTNESS OF BREATH 10/05/2016 SRIDHAR BLACK CABLE TELEVISION TECHNICIAN Ot R07.89 OTHER CHEST PAIN 10/05/2016 SRIDHAR BLACK CABLE TELEVISION TECHNICIAN Ot T82.855A STENOSIS OF CORONARY ARTERY STENT, INITI 10/05/2016 SRIDHAR BLACK CABLE TELEVISION TECHNICIAN Ot 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 10/05/2016 SRIDHAR BLACK CABLE TELEVISION TECHNICIAN Ot Z79.899 OTHER ASSISTED (CURRENT) DRUG THERAPY 10/05/2016 SRIDHAR BLACK L CABLE TELEVISION TECHNICIAN Ot Z82.49 FAMILY HX OF ISCHEM HEART DIS AND OTH DI 10/05/2016 SRIDHAR BLACK CABLE TELEVISION TECHNICIAN Ot Z85.118 PERSONAL HISTORY OF MALIGNANT NEOPLASM O 10/05/2016 SRIDHAR BLACK CABLE TELEVISION TECHNICIAN Ot Z87.891 PERSONAL HISTORY OF NICOTINE DEPENDENCE 10/05/2016 SRIDHAR BLACK CABLE TELEVISION TECHNICIAN Ot Z90.2 ACQUIRED ABSENCE OF LUNG [PART OF] 10/05/2016 SRIDHAR BLACK CABLE TELEVISION TECHNICIAN Ot Z92.21 PERSONAL HISTORY OF ANTINEOPLASTIC CHEMO 03/08/2017 Ot 786.50 CHEST PAIN NOS 03/08/2017 GABI VALENCIA MD Ot V54.01 ENCNTR FOR REMOVAL OF INTERNAL FIXATION 03/08/2017 GABI VALENCIA MD Ot V72.84 EXAM PRE-OPERATIVE NOS 03/08/2017 GABI VALENCIA MD Ot V74.8 SCREEN-BACTERIAL DIS NEC 03/08/2017 ESTEVAN FERRO, CHAPO Lares Ot 162.9 MAL LAURA BRONCH/LUNG NOS 03/08/2017 VISHNU STARKS CABLE TELEVISION TECHNICIAN Ot 162.3 MAL LAURA UPPER LOBE LUNG 03/08/2017 VISHNU STARKS S CABLE TELEVISION TECHNICIAN Ot 250.00 DIAB CHETNA WO COMPL, TYPE II OR UNSPEC TY 03/08/2017 VISHNU STARKS CABLE TELEVISION TECHNICIAN Ot 272.4 HYPERLIPIDEMIA NEC/NOS 03/08/2017 VISHNU STARKS CABLE TELEVISION TECHNICIAN Ot 414.00 CORON ATHEROSCLER NOS TYPE VESSEL, NATIV 03/08/2017 VISHNU STARKS CABLE TELEVISION TECHNICIAN Ot 793.0 NOSP (ABN) FINDINGS ON RADIOLOGICAL OT 03/08/2017 VISHNU STARKS CABLE TELEVISION TECHNICIAN Ot V45.82 PERCUTANEOUS TRANSLUM CORON ANGIOPLASTY 03/08/2017 VISHNU STARKS CABLE TELEVISION TECHNICIAN Ot V58.69 OTH MED,LT,CURRENT USE 03/08/2017 JAMMIE NAVA MD Ot C34.10 MALIGNANT NEOPLASM OF UPPER LOBE, UNSP B 03/08/2017 JAMMIE NAVA MD Ot E11.9 TYPE 2 DIABETES MELLITUS WITHOUT COMPLIC 03/08/2017 JAMMIE NAVA MD Ot E78.5 HYPERLIPIDEMIA, UNSPECIFIED 03/08/2017 JAMMIE NAVA MD Ot I25.10 ATHSCL HEART DISEASE OF [place] CORONARY 03/08/2017 JAMMIE NAVA MD Ot Z51.11 ENCOUNTER FOR ANTINEOPLASTIC CHEMOTHERAP 03/08/2017 JAMMIE NAVA MD Ot Z79.899 OTHER ASSISTED (CURRENT) DRUG THERAPY 03/08/2017 JAMMIE NAVA MD Ot Z98.61 CORONARY ANGIOPLASTY STATUS 03/08/2017 AKANKSHA FERRO FACC, ALI FACP CCDS Ot C34.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, LEFT B 03/08/2017 AKANKSHA FERRO FACC, ALI FACP CCDS Ot E13.9 OTHER SPECIFIED DIABETES MELLITUS WITHOU 03/08/2017 AKANKSHA FERRO FACC, ALI FACP CCDS Ot E78.4 OTHER HYPERLIPIDEMIA 03/08/2017 AKANKSHA FERRO FACC, ALI FACP CCDS Ot I25.10 ATHSCL HEART DISEASE OF [place] CORONARY 03/08/2017 AKANKSHA FERRO FACC, ALI FACP CCDS Ot R00.2 PALPITATIONS 03/08/2017 AKANKSHA FERRO FACC, ALI FACP CCDS Ot R06.02 SHORTNESS OF BREATH 03/08/2017 AKANKSHA FERRO FACC, ALI FACP CCDS Ot Z87.891 PERSONAL HISTORY OF NICOTINE DEPENDENCE Procedures Code [place] [address] XRAY CHEST 2 VIEW 05/24/2012 Cardiolog Bradly Begum 05/24/2012 01622 ROUTINE VENIPUNCTURE 06/05/2012 54772 A1C (IN-HOUSE) 06/05/2012 55168 CBC 06/05/2012 69064 LIVER PANEL (LFT) 06/05/2012 73791 CMP 06/05/2012 [id number] GFR CALC (RESULT ONLY) 06/05/2012 72998 ROUTINE VENIPUNCTURE 06/07/2012 71489 CBC 06/07/2012 44294 CMP 06/07/2012 15185 LIPID PANEL 06/07/2012 63209 MAGNESIUM 06/07/2012 1056951 GFR CALC (RESULT ONLY) 06/07/2012 94857 TSH 06/07/2012 26366 LIPASE 06/07/2012 57866 BNP 06/07/2012 82240 PSA FREE AND TOTAL 06/07/2012 84818 EKG, TRACING (IN-HOUSE) 06/09/2012 32226 ECHO 2D 06/09/2012 55967 OXIMETRY 06/09/2012 71687 BMP 07/03/2012 57325 CMP 07/03/2012 80717 LIPID PANEL 07/03/2012 72404 A1C (IN-HOUSE) 07/03/2012 58318 HEMOGLOBIN (IN-HOUSE) 07/03/2012 34078 CBC 07/03/2012 96993 ROUTINE VENIPUNCTURE 08/05/2012 97489 EKG, TRACING (IN-HOUSE) 08/05/2012 25585 HEMOGLOBIN (IN-HOUSE) 08/05/2012 67694 A1C (IN-HOUSE) 08/05/2012 91938 CBC 08/05/2012 04579 CMP 08/05/2012 16898 LIPID PANEL 08/05/2012 98402 A1C (IN-HOUSE) 08/23/2012 Dione Conner Jeri 08/23/2012 Storm Ross 09/06/2012 42552 A1C (IN-HOUSE) 11/29/2012 76475 ROUTINE VENIPUNCTURE 02/07/2013 7020441 GFR CALC (RESULT ONLY) 02/07/2013 63727 CMP 02/07/2013 45041 LIPID PANEL 02/07/2013 22287 A1C (IN-HOUSE) 03/21/2013 66825 ROUTINE VENIPUNCTURE 03/26/2013 95467 OXIMETRY 03/26/2013 5017434 IMMATURE PLATELET FRACTION (RESULT ONLY) 03/27/2013 59924 DIFFERENTIAL WBC COUNT (CBC DIFF RESULT) 03/27/2013 05147 RETICULOCYTE COUNT 03/27/2013 50488 PERIPHERIAL BLOOD SMEAR 03/27/2013 0165580 COMPLETE BLOOD COUNT NO DIFF (CBC Result) 03/27/2013 5990101 HEMATOLOGY OTHER REPORT 03/27/2013 98566 ROUTINE VENIPUNCTURE 06/09/2013 6068356 GFR CALC (RESULT ONLY) 06/09/2013 46715 CMP 06/09/2013 28762 LIPID PANEL 06/09/2013 04517 A1C (IN-HOUSE) 06/23/2013 58265 ROUTINE VENIPUNCTURE 09/17/2013 6615443 GFR CALC (RESULT ONLY) 09/17/2013 16485 CMP 09/17/2013 13885 LIPID PANEL 09/17/2013 31436 OXIMETRY 09/24/2013 38227 A1C (IN-HOUSE) 02/18/2014 39791 ROUTINE VENIPUNCTURE 02/18/2014 93148 MICRO ALBUMIN-IN HOUSE 02/18/2014 06455 LIPID PANEL 02/18/2014 73576 LIVER PANEL (LFT) 02/18/2014 39042 URIC ACID 02/18/2014 Results Test Result Range CBC With Differential/Platelet - 07/06/16 08:12 WBC 8.0 x10E3/uL 3.4-10.8 RBC 5.30 x10E6/uL 4.14-5.80 Hemoglobin 16.0 g/dL 12.6-17.7 Hematocrit 48.4 % 37.5-51.0 MCV 91 fL 79-97 MCH 30.2 pg 26.6-33.0 MCHC 33.1 g/dL 31.5-35.7 RDW 14.6 % 12.3-15.4 Platelets 249 x10E3/uL 150-379 Neutrophils 60 % Lymphs 28 % Monocytes 8 % Eos 3 % Basos 1 % Neutrophils (Absolute) 4.8 x10E3/uL 1.4-7.0 Lymphs (Absolute) 2.3 x10E3/uL 0.7-3.1 Monocytes(Absolute) 0.7 x10E3/uL 0.1-0.9 Eos (Absolute) 0.2 x10E3/uL 0.0-0.4 Baso (Absolute) 0.1 x10E3/uL 0.0-0.2 Immature Granulocytes 0 % Immature Grans (Abs) 0.0 x10E3/uL 0.0-0.1 Comp. Metabolic Panel (14) - 07/06/16 08:12 Glucose, Serum 123 mg/dL 65-99 BUN 15 mg/dL 8-27 Creatinine, Serum 1.19 mg/dL 0.76-1.27 eGFR If NonAfricn Am 66 mL/min/1.73 >59 eGFR If Africn Am 76 mL/min/1.73 >59 BUN/Creatinine Ratio 13 10-22 Sodium, Serum 140 mmol/L 134-144 Potassium, Serum 4.9 mmol/L 3.5-5.2 Chloride, Serum 97 mmol/L 96-106 Carbon Dioxide, Total 21 mmol/L 18-29 Calcium, Serum 9.9 mg/dL 8.6-10.2 Protein, Total, Serum 7.3 g/dL 6.0-8.5 Albumin, Serum 4.3 g/dL 3.6-4.8 Globulin, Total 3.0 g/dL 1.5-4.5 A/G Ratio 1.4 1.2-2.2 Bilirubin, Total 0.3 mg/dL 0.0-1.2 Alkaline Phosphatase, S 114 IU/L 39-117 AST (SGOT) 22 IU/L 0-40 ALT (SGPT) 28 IU/L 0-44 Lipid Panel - 07/06/16 08:12 Cholesterol, Total 187 mg/dL 100-199 Triglycerides 239 mg/dL 0-149 HDL Cholesterol 44 mg/dL >39 VLDL Cholesterol Ramesh 48 mg/dL 5-40 LDL Cholesterol Calc 95 mg/dL 0-99 TSH - 07/06/16 08:12 TSH 2.620 uIU/mL 0.450-4.500 C-Reactive Protein, Cardiac - 07/06/16 08:12 C-Reactive Protein, Cardiac 2.36 mg/L 0.00-3.00 B-Type Natriuretic Peptide - 07/06/16 08:12 B-Type Natriuretic Peptide 44.6 pg/mL 0.0-100.0 Methicillin resistant Staphylococcus aureus (MRSA) screening culture - 10:55 Methicillin resistant Staphylococcus aureus (MRSA) screening culture NEG NRG Capillary blood glucose measurement by glucometer (mass/volume) - 07/31/16 11: 35 Capillary blood glucose measurement by glucometer (mass/volume) 105 mg/dL 70-110 Automated blood complete blood count (hemogram) panel - 09/12/16 09:36 Blood leukocytes automated count (number/volume) 10.1 10*3/uL 4.3-11.0 Blood erythrocytes automated count (number/volume) 5.31 10*6/uL 4.35-5.85 Venous blood hemoglobin measurement (mass/volume) 16.0 g/dL 13.3-17.7 Blood hematocrit (volume fraction) 48 % 40-54 Automated erythrocyte mean corpuscular volume 90 [foz_us] 80-99 Automated erythrocyte mean corpuscular hemoglobin (mass per erythrocyte) 30 pg 25-34 Automated erythrocyte mean corpuscular hemoglobin concentration measurement ( mass/volume) 34 g/dL 32-36 Automated erythrocyte distribution width ratio 13.9 % 10.0-14.5 Automated blood platelet count (count/volume) 210 10*3/uL 130-400 Automated blood platelet mean volume measurement 10.6 [foz_us] 7.4-10.4 PT panel in platelet poor plasma by coagulation assay - 09/12/16 09:36 Prothrombin time (PT) in platelet poor plasma by coagulation assay 12.0 s 12.2-14.7 INR in platelet poor plasma or blood by coagulation assay 0.9 0.8-1.4 Activated partial thromboplastin time (aPTT) in platelet poor plasma bycoagulation assay - 09/12/16 09:36 Activated partial thromboplastin time (aPTT) in platelet poor plasma bycoagulation assay 25 s 24-35 Comprehensive metabolic panel - 09/12/16 09:36 Serum or plasma sodium measurement (moles/volume) 141 mmol/L 135-145 Serum or plasma potassium measurement (moles/volume) 4.1 mmol/L 3.6-5.0 Serum or plasma chloride measurement (moles/volume) 107 mmol/L 98-107 Carbon dioxide 23 mmol/L 21-32 Serum or plasma anion gap determination (moles/volume) 11 mmol/L 5-14 Serum or plasma urea nitrogen measurement (mass/volume) 17 mg/dL 7-18 Serum or plasma creatinine measurement (mass/volume) 1.08 mg/dL 0.60-1.30 Serum or plasma urea nitrogen/creatinine mass ratio 16 NRG Serum or plasma creatinine measurement with calculation of estimated glomerular filtration rate > NRG Serum or plasma glucose measurement (mass/volume) 102 mg/dL 70-105 Serum or plasma calcium measurement (mass/volume) 9.9 mg/dL 8.5-10.1 Serum or plasma total bilirubin measurement (mass/volume) 0.4 mg/dL 0.1-1.0 Serum or plasma alkaline phosphatase measurement (enzymatic activity/volume) 100 U/L 40-136 Serum or plasma aspartate aminotransferase measurement (enzymatic activity/ volume) 24 U/L 5-34 Serum or plasma alanine aminotransferase measurement (enzymatic activity/volume ) 29 U/L 0-55 Serum or plasma protein measurement (mass/volume) 7.6 g/dL 6.4-8.2 Serum or plasma albumin measurement (mass/volume) 4.3 g/dL 3.2-4.5 Lipid 1996 panel - 09/12/16 09:36 Serum or plasma triglyceride measurement (mass/volume) 148 mg/dL <150 Serum or plasma cholesterol measurement (mass/volume) 142 mg/dL < 200 Serum or plasma cholesterol in HDL measurement (mass/volume) 37 mg/ dL 40-60 Cholesterol in LDL [mass/volume] in serum or plasma by direct assay 75 mg/dL 1-129 Serum or plasma cholesterol in VLDL measurement (mass/volume) 30 mg/ dL 5-40 Methicillin resistant Staphylococcus aureus (MRSA) screening culture - 09:36 Methicillin resistant Staphylococcus aureus (MRSA) screening culture NEG NRG Encounters ACCT No. Visit Date/Time Discharge Status Pt. Type Provider Facility Loc./Unit Complaint [id number] 02/18/2014 11:25:00 02/18/2014 23:59:59 CLS Outpatient JAYE RIGGS APRN [id number] 09/24/2013 08:52:00 09/24/2013 23:59:59 CLS Outpatient IRMA ROGER DO [id number] 09/17/2013 08:27:00 09/17/2013 23:59:59 CLS Outpatient JAYE RIGGS APRN [id number] 06/23/2013 10:57:00 06/23/2013 23:59:59 CLS Outpatient JAYE RIGGS APRN [id number] 06/09/2013 07:54:00 06/09/2013 23:59:59 CLS Outpatient JAYE RIGGS APRN [place] [id number] 04/14/2013 10:21:00 04/14/2013 23:59:59 CLS Outpatient DARSHAN RODRIGUEZ MD [id number] 03/26/2013 09:21:00 03/26/2013 23:59:59 CLS Outpatient DARSHAN RODRIGUEZ MD [id number] 03/21/2013 14:10:00 03/21/2013 23:59:59 CLS Outpatient DARSHAN RODRIGUEZ MD [id number] 02/07/2013 10:19:00 02/07/2013 23:59:59 CLS Outpatient JAYE RIGGS APRN [id number] 07/03/2012 09:00:00 07/03/2012 23:59:59 CLS Outpatient [id number] 06/14/2012 10:00:00 06/14/2012 23:59:59 CLS Outpatient JAYE RIGGS APRN [place] [id number] 06/07/2012 08:04:00 06/07/2012 23:59:59 CLS Outpatient JAYE RIGGS APRN [place] [id number] 05/24/2012 09:01:00 05/24/2012 23:59:59 CLS Outpatient [id number] 11/29/2012 09:05:00 Document Registration [id number] 10/17/2012 13:38:00 Document Registration [id number] 09/06/2012 11:40:00 Document Registration [id number] 08/23/2012 08:42:00 Document Registration [id number] 08/05/2012 08:02:00 Document Registration [email or web address] 01/27/2015 10:10:15 ACT Document Registration [id number] 11/06/2017 13:20:00 11/06/2017 23:59:59 CLS Outpatient ONEIL HODGEJAYE [place] [id number] 09/21/2016 13:34:00 09/21/2016 23:59:59 CLS Outpatient AKANKSHA FERRO FACC, DELBERT GOEL CCDS [facility] CARD I25.10,E13.9 [id number] 09/12/2016 08:59:00 09/12/2016 18:00:00 DIS Outpatient SRIDHAR BLACK [facility] CATH CAD,DM,HL [id number] 09/07/2016 15:57:00 09/07/2016 23:59:59 CLS Preadmit AKANKSHA FERRO FAC, DELBERT GOEL CCDS [facility] RT I25.10,E13.9 [id number] 07/31/2016 10:29:00 07/31/2016 13:50:00 DIS Outpatient MILE CHOWDHURY DO [facility] SDC HISTORY LUNG CA [id number] 07/28/2016 09:18:00 07/28/2016 13:24:00 DIS Outpatient MILE CHOWDHURY DO [facility] PREOP PORT REMOVAL [id number] 04/28/2015 00:10:00 04/28/2015 23:59:59 CLS Preadmit JAMMIE NAVA MD [facility] ONC [id number] 04/14/2015 14:37:00 04/27/2015 00:01:00 DIS Outpatient JAMMIE NAVA MD [facility] ONC [id number] 01/20/2015 12:38:00 01/20/2015 00:01:00 DIS Outpatient JAMMIE NAVA MD [facility] ONC [id number] 12/16/2014 08:58:00 12/16/2014 23:59:59 CLS Outpatient VISHNU STARKS [facility] ONC [id number] 11/10/2014 14:23:00 11/10/2014 23:59:59 CLS Outpatient CHAPO BARRETO MD [facility] RAD NEOPLASM, [id number] 09/01/2014 12:50:00 09/03/2014 14:00:00 DIS Outpatient MICHAEL FERRO, DARSHAN Ruelas [facility] CATH CHEST PAIN R LUNG MASS [id number] 12/30/2012 06:03:00 12/30/2012 10:10:00 DIS Outpatient GABI VALENCIA MD [facility] SDC HEALED FRACTURE RIGHT TIBIA WITH RETAINED HARDWARE [id number] 12/25/2012 07:40:00 12/25/2012 23:59:59 CLS Outpatient GABI VALENCIA MD [facility] PREOP HEALED FRACTURE RIGHT TIBIA WITH RETAINED HARDWARE [id number] 09/01/2014 12:38:00 Document Registration [id number] 09/01/2014 12:38:00 Document Registration [id number] 06/06/2012 10:32:00 Document Registration [id number] 08/29/2011 20:50:00 Document Registration [id number] 11/16/2010 05:38:00 Document Registration [id number] 11/08/2010 06:44:00 Document Registration [id number] 07/07/2016 13:06:00 Document Registration
--- OUTSIDE RECORDS SUMMARY | 2017-12-31 18:06 | XMS REPORT | Continuity of Care Document ---
Author Author Formerly [facility] Address Unknown Phone Unavailable Allergies Active Description Code Type Severity Reaction Onset Reported/Identified Relationship to Patient Clinical Status Yes celery Food Allergy N/A N/A 03/12/2009 Yes celery Food Allergy 03/12/2009 Yes Plavix 75 mg tablet Drug Allergy N/A N/A 11/01/2012 Yes Brilinta Drug Allergy N/A N/A 03/26/2013 Yes celery [id number] Drug Allergy Unknown N/A 07/28/2016 Yes clopidogrel [id number] Drug Allergy Unknown NAUSEA 07/28/2016 Yes ticagrelor [id number] Drug Allergy Unknown NAUSEA 07/28/2016 Medications There [...] UNSPECIFIED 09/01/2011 780.60 FEVER, UNSPECIFIED 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, 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 T 780.60 FEVER, UNSPECIFIED 09/01/2011 MICHAEL [...] NEC 06/11/2012 Ot 414.01 CORONARY ATHEROSCLEROSIS OF [place]' CORON 06/11/2012 Ot 530.81 ESOPHAGEAL REFLUX 06/11/2012 [...] Ot 401.9 HYPERTENSION NOS 09/03/2014 MICHAEL FERRO, DARSHAN Ruelas Ot 414.01 CORONARY ATHEROSCLEROSIS OF [place] CORON 09/03/2014 MICHAEL FERRO, DARSHAN Ruelas Ot 530.81 ESOPHAGEAL REFLUX 09/03/2014 MICHAEL FERRO, DARSHAN Ruelas Ot 577.9 PANCREATIC DISEASE NOS 09/03/2014 MICHAEL FERRO, DARSHAN Ruelas Ot 715.90 OSTEOARTHROS NOS-UNSPEC 09/03/2014 MICHAEL FERRO, DARSHAN Ruelas Ot 786.59 CHEST PAIN NEC 09/03/2014 MICHAEL FERRO, DARSHAN Ruelas Ot 786.6 CHEST SWELLING/MASS/LUMP 09/03/2014 IMCHAEL FERRO, DARSHAN Ruelas Ot V45.82 PERCUTANEOUS TRANSLUM CORON ANGIOPLASTY 09/03/2014 MICHAEL FERRO, DARSHAN Ruelas Ot V58.69 OT MED,LT,CURRENT USE 09/04/2014 MICHAEL FERRO, DARSHAN Ruelas Ot 250.00 09/04/2014 MICHAEL FERRO, DARSHNA Ruelas Ot 288.60 09/04/2014 MICHAEL FERRO, DARSHAN Ruelas Ot 305.1 09/04/2014 MICHAEL EFRRO, DARSHAN Ruelas Ot 401.9 09/04/2014 MICHAEL FERRO, [...] KANDI-RJ Ot V58.69 12/30/2014 TEREZA HILAH S RESEARCH AND DEVELOPMENT ENGINEER Ot 162.3 12/30/2014 TEREZA, HILAH S RESEARCH AND DEVELOPMENT ENGINEER Ot 250.00 12/30/2014 TEREZA HILAH S RESEARCH AND DEVELOPMENT ENGINEER Ot 272.4 12/30/2014 TEREZA HILAH S RESEARCH AND DEVELOPMENT ENGINEER Ot 414.00 12/30/2014 STARKS HILAH S RESEARCH AND DEVELOPMENT ENGINEER Ot 793.0 12/30/2014 STARKS, HILAH S RESEARCH AND DEVELOPMENT ENGINEER Ot V45.82 12/30/2014 TEREZA HILAH S RESEARCH AND DEVELOPMENT ENGINEER Ot V58.69 01/13/2015 BRANDY FERRO, KANDI-RJ Ot [...] FERRO, CHAU-RJ Ot 272.4 01/14/2015 BRANDY FERRO, CHAU-JR Ot 414.00 01/14/2015 BRANDY FERRO, KANDI-RJ Ot [...] CHAPO J Ot 162.9 02/24/2015 VISHNU STARKS RESEARCH AND DEVELOPMENT ENGINEER Ot 162.3 02/24/2015 VISHNU STARKS RESEARCH AND DEVELOPMENT ENGINEER Ot 250.00 02/24/2015 VISHNU STARKS RESEARCH AND DEVELOPMENT ENGINEER Ot 272.4 02/24/2015 VISHNU STARKS RESEARCH AND DEVELOPMENT ENGINEER Ot 414.00 02/24/2015 VISHNU STARKS RESEARCH AND DEVELOPMENT ENGINEER Ot 793.0 02/24/2015 VISHNU STARKS RESEARCH AND DEVELOPMENT ENGINEER Ot V45.82 02/24/2015 VISHNU STARKS RESEARCH AND DEVELOPMENT ENGINEER Ot V58.69 02/24/2015 BRANDY FERRO, JAMMIE Ot [...] CHAPO J Ot 162.9 03/30/2015 VISHNU STARKS RESEARCH AND DEVELOPMENT ENGINEER Ot 162.3 03/30/2015 VISHNU STARKS RESEARCH AND DEVELOPMENT ENGINEER Ot 250.00 03/30/2015 VISHNU STARKS RESEARCH AND DEVELOPMENT ENGINEER Ot 272.4 03/30/2015 VISHNU STARKS RESEARCH AND DEVELOPMENT ENGINEER Ot 414.00 03/30/2015 VISHNU STARKS RESEARCH AND DEVELOPMENT ENGINEER Ot 793.0 03/30/2015 VISHNU STARKS RESEARCH AND DEVELOPMENT ENGINEER Ot V45.82 03/30/2015 VISHNU STARKS RESEARCH AND DEVELOPMENT ENGINEER Ot V58.69 03/30/2015 BRANDY FERRO, JAMMIE Ot C34.10 03/30/2015 BRANDY FERRO, JAMMIE Ot E11.9 03/30/2015 BRANDY FERRO, JAMMIE Ot E78.5 03/30/2015 BRANDY FERRO, JAMMIE Ot I25.10 03/30/2015 JAMMIE NAVA MD Ot Z51.11 03/30/2015 JAMMIE NAVA MD Ot Z79.899 03/30/2015 JAMMIE NAVA MD Ot Z98.61 04/27/2015 JAMMIE NAVA MD, Ot C34.10 MALIGNANT NEOPLASM OF UPPER LOBE, UNSP B 04/27/2015 JAMMIE NAVA MD Ot E11.9 TYPE 2 DIABETES MELLITUS WITHOUT COMPLIC 04/27/2015 JAMMIE NAVA MD Ot E78.5 HYPERLIPIDEMIA, UNSPECIFIED 04/27/2015 JAMMIE NAVA MD, Ot I25.10 ATHSCL HEART DISEASE OF [place]' CORONARY 04/27/2015 JAMMIE NAVA MD, Ot Z51.11 ENCOUNTER FOR ANTINEOPLASTIC CHEMOTHERAP 04/27/2015 JAMMIE NAVA MD Ot Z79.899 OTHER BUDGET DIRECTOR (CURRENT) DRUG THERAPY 04/27/2015 JAMMIE NAVA MD, Ot Z98.61 CORONARY ANGIOPLASTY STATUS 07/28/2016 JAMMIE NAVA MD, Ot C34.10 MALIGNANT NEOPLASM OF UPPER LOBE, UNSP B 07/28/2016 JAMMIE NAVA MD Ot E11.9 TYPE 2 DIABETES MELLITUS WITHOUT COMPLIC 07/28/2016 JAMMIE NAVA MD, Ot E78.5 HYPERLIPIDEMIA, UNSPECIFIED 07/28/2016 JAMMIE NAVA MD, Ot I25.10 ATHSCL HEART DISEASE OF [place]' CORONARY 07/28/2016 JAMMIE NAVA MD Ot Z51.11 ENCOUNTER FOR ANTINEOPLASTIC CHEMOTHERAP 07/28/2016 JAMMIE NAVA MD, Ot Z79.899 OTHER BUDGET DIRECTOR (CURRENT) DRUG THERAPY 07/28/2016 JAMMIE NAVA MD, [...] MAL LAURA BRONCH/LUNG NOS 07/31/2016 VISHNU STARKS RESEARCH AND DEVELOPMENT ENGINEER Ot 162.3 MAL LAURA UPPER LOBE LUNG 07/31/2016 VISHNU STARKS RESEARCH AND DEVELOPMENT ENGINEER Ot 250.00 DIAB CHETNA WO COMPL, TYPE II OR UNSPEC TY 07/31/2016 VISHNU STARKS RESEARCH AND DEVELOPMENT ENGINEER Ot 272.4 HYPERLIPIDEMIA NEC/NOS 07/31/2016 VISHNU STARKS RESEARCH AND DEVELOPMENT ENGINEER Ot 414.00 CORON ATHEROSCLER NOS TYPE VESSEL, NATIV 07/31/2016 VISHNU STARKS RESEARCH AND DEVELOPMENT ENGINEER Ot 793.0 NOSP (ABN) FINDINGS ON RADIOLOGICAL [...] MD Ot I25.10 ATHSCL HEART DISEASE OF [place] CORONARY 07/31/2016 JAMMIE NAVA MD Ot Z51.11 ENCOUNTER FOR ANTINEOPLASTIC CHEMOTHERAP 07/31/2016 JAMMIE NAVA MD Ot Z79.899 OTHER RESIDENTIAL (CURRENT) DRUG THERAPY 07/31/2016 JAMMIE NAVA MD Ot Z98.61 CORONARY ANGIOPLASTY STATUS 07/31/2016 Ot 786.50 CHEST PAIN NOS 07/31/2016 GABI VALENCIA MD Ot V54.01 ENCNTR FOR REMOVAL OF INTERNAL FIXATION 07/31/2016 GABI VALENCIA MD Ot V72.84 EXAM PRE-OPERATIVE NOS 07/31/2016 GABI VALENCIA MD Ot V74.8 SCREEN-BACTERIAL DIS NEC 07/31/2016 CHAPO BARRETO MD Ot 162.9 MAL LAURA BRONCH/LUNG NOS 07/31/2016 VISHNU STARKS RESEARCH AND DEVELOPMENT ENGINEER Ot 162.3 MAL LAURA UPPER LOBE LUNG 07/31/2016 VISHNU STARKS RESEARCH AND DEVELOPMENT ENGINEER Ot 250.00 DIAB CHETNA WO COMPL, TYPE II OR UNSPEC TY 07/31/2016 VISHNU STARKS RESEARCH AND DEVELOPMENT ENGINEER Ot 272.4 HYPERLIPIDEMIA NEC/NOS 07/31/2016 VISHNU STARKS RESEARCH AND DEVELOPMENT ENGINEER Ot 414.00 CORON ATHEROSCLER NOS TYPE VESSEL, NATIV 07/31/2016 VISHNU STARKS RESEARCH AND DEVELOPMENT ENGINEER Ot 793.0 NOSP (ABN) FINDINGS ON RADIOLOGICAL OT 07/31/2016 VISHNU STARKS RESEARCH AND DEVELOPMENT ENGINEER Ot V45.82 PERCUTANEOUS TRANSLUM CORON ANGIOPLASTY 07/31/2016 VISHNU STARKS RESEARCH AND DEVELOPMENT ENGINEER Ot V58.69 OT MED,LT,CURRENT USE 07/31/2016 JAMMIE NAVA MD Ot C34.10 MALIGNANT NEOPLASM OF UPPER LOBE, UNSP B 07/31/2016 JAMMIE NAVA MD Ot E11.9 TYPE 2 DIABETES MELLITUS WITHOUT COMPLIC 07/31/2016 JAMMIE NAVA MD, Ot E78.5 HYPERLIPIDEMIA, UNSPECIFIED 07/31/2016 JAMMIE NAVA MD, Ot I25.10 ATHSCL HEART DISEASE OF [place]' CORONARY 07/31/2016 JAMMIE NAVA MD Ot Z51.11 ENCOUNTER FOR ANTINEOPLASTIC CHEMOTHERAP 07/31/2016 JAMMIE NAVA MD Ot Z79.899 OTHER BUDGET DIRECTOR (CURRENT) DRUG THERAPY 07/31/2016 JAMMIE NAVA MD Ot Z98.61 CORONARY ANGIOPLASTY STATUS 07/31/2016 MILE CHOWDHURY DO, Ot E11.9 TYPE 2 DIABETES MELLITUS WITHOUT COMPLIC 07/31/2016 MILE CHOWDHURY DO Ot I87.2 VENOUS INSUFFICIENCY [...] MAL LAURA BRONCH/LUNG NOS 09/12/2016 VISHNU STARKS RESEARCH AND DEVELOPMENT ENGINEER Ot 162.3 MAL LAURA UPPER LOBE LUNG 09/12/2016 VISHNU STARKS RESEARCH AND DEVELOPMENT ENGINEER Ot 250.00 DIAB CHETNA WO COMPL, TYPE II OR UNSPEC TY 09/12/2016 VISHNU STARKS RESEARCH AND DEVELOPMENT ENGINEER Ot 272.4 HYPERLIPIDEMIA NEC/NOS 09/12/2016 VISHNU STARKS RESEARCH AND DEVELOPMENT ENGINEER Ot 414.00 CORON ATHEROSCLER NOS TYPE VESSEL, NATIV 09/12/2016 VISHNU STARKS RESEARCH AND DEVELOPMENT ENGINEER Ot 793.0 NOSP (ABN) FINDINGS ON RADIOLOGICAL [...] MD Ot I25.10 ATHSCL HEART DISEASE OF [place] CORONARY 09/12/2016 JAMMIE NAVA MD, Ot Z51.11 ENCOUNTER FOR ANTINEOPLASTIC CHEMOTHERAP 09/12/2016 JAMMIE NAVA MD, Ot Z79.899 OTHER BUDGET DIRECTOR (CURRENT) DRUG THERAPY 09/12/2016 JAMMIE NAVA MD, Ot Z98.61 CORONARY ANGIOPLASTY STATUS 09/12/2016 SRIDHAR BLACK Ot E11.9 TYPE 2 DIABETES MELLITUS WITHOUT COMPLIC 09/12/2016 SRIDHAR BLACK RESEARCH AND DEVELOPMENT ENGINEER Ot I25.10 ATHSCL HEART DISEASE OF [place]' CORONARY 09/12/2016 CHRISTISRIDHAR CLARK RESEARCH AND DEVELOPMENT ENGINEER Ot 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 [place] 09/12/2016 SRIDHAR BLACK RESEARCH AND DEVELOPMENT ENGINEER Ot R06.02 SHORTNESS OF BREATH 09/12/2016 CHRISTISRIDHAR CLARK RESEARCH AND DEVELOPMENT ENGINEER Ot R07.89 OTHER CHEST PAIN 09/12/2016 CHRISTISRIDHAR CLARK RESEARCH AND DEVELOPMENT ENGINEER Ot T82.855A STENOSIS OF CORONARY ARTERY STENT, INITI 09/12/2016 CHRISTISRIDHAR CLARK RESEARCH AND DEVELOPMENT ENGINEER Ot Z79.84 BUDGET DIRECTOR (CURRENT) USE OF ORAL HYPOGLYC 09/12/2016 CHRISTISRIDHAR CLARK RESEARCH AND DEVELOPMENT ENGINEER Ot Z79.899 OTHER BUDGET DIRECTOR (CURRENT) DRUG THERAPY 09/12/2016 CHRISTISRIDHAR CLARK RESEARCH AND DEVELOPMENT ENGINEER Ot Z82.49 FAMILY HX OF ISCHEM HEART DIS AND OTH DI 09/12/2016 CHRISTISRIDHAR CLARK RESEARCH AND DEVELOPMENT ENGINEER Ot Z85.118 PERSONAL HISTORY OF MALIGNANT NEOPLASM O 09/12/2016 CHRISTISRIDHAR CLARK RESEARCH AND DEVELOPMENT ENGINEER Ot Z87.891 PERSONAL HISTORY OF NICOTINE DEPENDENCE 09/12/2016 CHRISTISRIDHAR CLARK RESEARCH AND DEVELOPMENT ENGINEER Ot Z90.2 ACQUIRED ABSENCE OF LUNG [PART OF] 09/12/2016 CHRISTISRIDHAR CLARK RESEARCH AND DEVELOPMENT ENGINEER Ot Z92.21 PERSONAL HISTORY OF ANTINEOPLASTIC CHEMO 09/21/2016 Ot 786.50 CHEST PAIN NOS 09/21/2016 GABI VALENCIA MD Ot V54.01 ENCNTR FOR REMOVAL OF INTERNAL FIXATION 09/21/2016 GABI VALENCIA MD Ot V72.84 EXAM PRE-OPERATIVE NOS 09/21/2016 GABI VALENCIA MD Ot V74.8 SCREEN-BACTERIAL DIS NEC 09/21/2016 CHAPO BARRETO MD Ot 162.9 MAL LAURA BRONCH/LUNG NOS 09/21/2016 VISHNU STARKS RESEARCH AND DEVELOPMENT ENGINEER Ot 162.3 MAL LAURA UPPER LOBE LUNG 09/21/2016 VISHNU STARKS RESEARCH AND DEVELOPMENT ENGINEER Ot 250.00 DIAB CHETNA WO COMPL, TYPE II OR UNSPEC TY 09/21/2016 VISHNU STARKS RESEARCH AND DEVELOPMENT ENGINEER Ot 272.4 HYPERLIPIDEMIA NEC/NOS 09/21/2016 VISHNU STARKS RESEARCH AND DEVELOPMENT ENGINEER Ot 414.00 CORON ATHEROSCLER NOS TYPE VESSEL, NATIV 09/21/2016 VISHNU STARKS RESEARCH AND DEVELOPMENT ENGINEER Ot 793.0 NOSP (ABN) FINDINGS ON RADIOLOGICAL OT 09/21/2016 VISHNU STARKS RESEARCH AND DEVELOPMENT ENGINEER Ot V45.82 PERCUTANEOUS TRANSLUM CORON ANGIOPLASTY 09/21/2016 VISHNU STARKS RESEARCH AND DEVELOPMENT ENGINEER Ot V58.69 OTH MED,LT,CURRENT USE 09/21/2016 JAMMIE NAVA MD Ot C34.10 MALIGNANT NEOPLASM OF UPPER LOBE, UNSP B 09/21/2016 JAMMIE NAVA MD Ot E11.9 TYPE 2 DIABETES MELLITUS WITHOUT COMPLIC 09/21/2016 JAMMIE NAVA MD Ot E78.5 HYPERLIPIDEMIA, UNSPECIFIED 09/21/2016 JAMMIE NAVA MD, Ot I25.10 ATHSCL HEART DISEASE OF [place]' CORONARY 09/21/2016 JAMMIE NAVA MD Ot Z51.11 ENCOUNTER FOR ANTINEOPLASTIC CHEMOTHERAP 09/21/2016 JAMMIE NAVA MD Ot Z79.899 OTHER BUDGET DIRECTOR (CURRENT) DRUG THERAPY 09/21/2016 JAMMIE NAVA MD Ot Z98.61 CORONARY ANGIOPLASTY STATUS 09/21/2016 SRIDHAR BLACK RESEARCH AND DEVELOPMENT ENGINEER Ot E11.9 TYPE 2 DIABETES MELLITUS WITHOUT COMPLIC 09/21/2016 SRIDHAR BLACK RESEARCH AND DEVELOPMENT ENGINEER Ot I25.10 ATHSCL HEART DISEASE OF [place]' CORONARY 09/21/2016 SRIDHAR BLACK RESEARCH AND DEVELOPMENT ENGINEER Ot 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 [place] 09/21/2016 SRIDHAR BLACK RESEARCH AND DEVELOPMENT ENGINEER Ot R06.02 SHORTNESS OF BREATH 09/21/2016 SRIDHAR BLACK RESEARCH AND DEVELOPMENT ENGINEER Ot R07.89 OTHER CHEST PAIN 09/21/2016 SRIDHAR BLACK RESEARCH AND DEVELOPMENT ENGINEER Ot T82.855A STENOSIS OF CORONARY ARTERY STENT, INITI 09/21/2016 SRIDHAR BLACK RESEARCH AND DEVELOPMENT ENGINEER Ot Z79.84 BUDGET DIRECTOR (CURRENT) USE OF ORAL HYPOGLYC 09/21/2016 SRIDHAR BLACK RESEARCH AND DEVELOPMENT ENGINEER Ot Z79.899 OTHER RESIDENTIAL (CURRENT) DRUG THERAPY 09/21/2016 SRIDHAR BLACK RESEARCH AND DEVELOPMENT ENGINEER Ot Z82.49 FAMILY HX OF ISCHEM HEART DIS AND OTH DI 09/21/2016 SRIDHAR BLACK RESEARCH AND DEVELOPMENT ENGINEER Ot Z85.118 PERSONAL HISTORY OF MALIGNANT NEOPLASM O 09/21/2016 SRIDHAR BLACK RESEARCH AND DEVELOPMENT ENGINEER Ot Z87.891 PERSONAL HISTORY OF NICOTINE DEPENDENCE 09/21/2016 SRIDHAR BLACK RESEARCH AND DEVELOPMENT ENGINEER Ot Z90.2 ACQUIRED ABSENCE OF LUNG [PART OF] 09/21/2016 SRIDHAR BLACK RESEARCH AND DEVELOPMENT ENGINEER Ot Z92.21 PERSONAL HISTORY OF ANTINEOPLASTIC CHEMO 09/22/2016 AKANKSHA FERRO FACC, ALI FACP CCDS Ot C34.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, LEFT B 09/22/2016 AKANKSHA FERRO FACC, ALI FACP CCDS Ot E13.9 OTHER SPECIFIED DIABETES MELLITUS WITHOU 09/22/2016 AKANKSHA CHAMBERSC, ALI FACP CCDS Ot E78.4 OTHER HYPERLIPIDEMIA 09/22/2016 AKANKSHA FERRO FACC, ALI FACP CCDS Ot I25.10 ATHSCL HEART DISEASE OF [place]' CORONARY 09/22/2016 AKANKSHA FERRO FACC, ALI FACP CCDS Ot R00.2 PALPITATIONS 09/22/2016 AKANKSHA FERRO FACC, ALI FACP CCDS Ot R06.02 SHORTNESS OF BREATH 09/22/2016 AKANKSHA FERRO FACC, ALI FACP CCDS Ot Z87.891 PERSONAL HISTORY OF NICOTINE DEPENDENCE 09/23/2016 SRIDHAR BLACK RESEARCH AND DEVELOPMENT ENGINEER Ot E11.9 TYPE 2 DIABETES MELLITUS WITHOUT COMPLIC 09/23/2016 SRIDHAR BLACK RESEARCH AND DEVELOPMENT ENGINEER Ot I25.10 ATHSCL HEART DISEASE OF [place]' CORONARY 09/23/2016 SRIDHAR BLACK RESEARCH AND DEVELOPMENT ENGINEER Ot 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 [place]IF[place] 09/23/2016 SRIDHAR BLACK RESEARCH AND DEVELOPMENT ENGINEER Ot R06.02 SHORTNESS OF BREATH 09/23/2016 SRIDHAR BLACK RESEARCH AND DEVELOPMENT ENGINEER Ot R07.89 OTHER CHEST PAIN 09/23/2016 SRIDHAR BLACK RESEARCH AND DEVELOPMENT ENGINEER Ot T82.855A STENOSIS OF CORONARY ARTERY STENT, INITI 09/23/2016 SRIDHAR BLACK RESEARCH AND DEVELOPMENT ENGINEER Ot Z79.84 RESIDENTIAL (CURRENT) USE OF ORAL HYPOGLYC 09/23/2016 SRIDHAR BLACK RESEARCH AND DEVELOPMENT ENGINEER Ot Z79.899 OTHER BUDGET DIRECTOR (CURRENT) DRUG THERAPY 09/23/2016 SRIDHAR BLACK RESEARCH AND DEVELOPMENT ENGINEER Ot Z82.49 FAMILY HX OF ISCHEM HEART DIS AND OTH DI 09/23/2016 SRIDHAR BLACK RESEARCH AND DEVELOPMENT ENGINEER Ot Z85.118 PERSONAL HISTORY OF MALIGNANT NEOPLASM O 09/23/2016 SRIDHAR BLACK RESEARCH AND DEVELOPMENT ENGINEER Ot Z87.891 PERSONAL HISTORY OF NICOTINE DEPENDENCE 09/23/2016 SRIDHAR BLACK RESEARCH AND DEVELOPMENT ENGINEER Ot Z90.2 ACQUIRED ABSENCE OF LUNG [PART OF] 09/23/2016 SRIDHAR BLACK RESEARCH AND DEVELOPMENT ENGINEER Ot Z92.21 PERSONAL HISTORY OF ANTINEOPLASTIC CHEMO 10/03/2016 AKANKSHA FERRO FACC, ALI FACP CCDS Ot C34.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, LEFT B 10/03/2016 AKANKSHA CHAMBERSC, ALI FACP CCDS Ot E13.9 OTHER SPECIFIED DIABETES MELLITUS WITHOU 10/03/2016 AKANKSHA FERRO FACC, ALI FACP CCDS Ot E78.4 OTHER HYPERLIPIDEMIA 10/03/2016 AKANKSHA CHABMERSC, ALI FACP CCDS Ot I25.10 ATHSCL HEART DISEASE OF [place]' CORONARY 10/03/2016 AKANKSHA CHAMBERSC, ALI FACP CCDS Ot R00.2 PALPITATIONS 10/03/2016 AKANKSHA CHAMBERSC, ALI FACP CCDS Ot R06.02 SHORTNESS OF BREATH 10/03/2016 AKANKSHA FERRO FACC, ALI FACP CCDS Ot Z87.891 PERSONAL HISTORY OF NICOTINE DEPENDENCE 10/05/2016 SRIDHAR BLACK RESEARCH AND DEVELOPMENT ENGINEER Ot E11.9 TYPE 2 DIABETES MELLITUS WITHOUT COMPLIC 10/05/2016 SRIDHAR BLACK RESEARCH AND DEVELOPMENT ENGINEER Ot I25.10 ATHSCL HEART DISEASE OF [place]' CORONARY 10/05/2016 SRIDHAR BLACK RESEARCH AND DEVELOPMENT ENGINEER Ot 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 CALCIFIE 10/05/2016 SRIDHAR BLACK RESEARCH AND DEVELOPMENT ENGINEER Ot R06.02 SHORTNESS OF BREATH 10/05/2016 SRIDHAR BLACK RESEARCH AND DEVELOPMENT ENGINEER Ot R07.89 OTHER CHEST PAIN 10/05/2016 SRIDHAR BLACK RESEARCH AND DEVELOPMENT ENGINEER Ot T82.855A STENOSIS OF CORONARY ARTERY STENT, INITI 10/05/2016 SRIDHAR BLACK RESEARCH AND DEVELOPMENT ENGINEER Ot Z79.84 BUDGET DIRECTOR (CURRENT) USE OF ORAL HYPOGLYC 10/05/2016 SRIDHAR BLACK RESEARCH AND DEVELOPMENT ENGINEER Ot Z79.899 OTHER RESIDENTIAL (CURRENT) DRUG THERAPY 10/05/2016 SRIDHAR BLACK L RESEARCH AND DEVELOPMENT ENGINEER Ot Z82.49 FAMILY HX OF ISCHEM HEART DIS AND OTH DI 10/05/2016 SRIDHAR BLACK RESEARCH AND DEVELOPMENT ENGINEER Ot Z85.118 PERSONAL HISTORY OF MALIGNANT NEOPLASM O 10/05/2016 SRIDHAR BLACK RESEARCH AND DEVELOPMENT ENGINEER Ot Z87.891 PERSONAL HISTORY OF NICOTINE DEPENDENCE 10/05/2016 SRIDHAR BLACK RESEARCH AND DEVELOPMENT ENGINEER Ot Z90.2 ACQUIRED ABSENCE OF LUNG [PART OF] 10/05/2016 SRIDHAR BLACK RESEARCH AND DEVELOPMENT ENGINEER Ot Z92.21 PERSONAL HISTORY OF ANTINEOPLASTIC CHEMO 03/08/2017 Ot 786.50 CHEST PAIN NOS 03/08/2017 GABI VALENCIA MD Ot V54.01 ENCNTR FOR REMOVAL OF INTERNAL FIXATION 03/08/2017 GABI VALENCIA MD Ot V72.84 EXAM PRE-OPERATIVE NOS 03/08/2017 GABI VALENCIA MD Ot V74.8 SCREEN-BACTERIAL DIS NEC 03/08/2017 ESTEVAN FERRO, CHAPO Lares Ot 162.9 MAL LAURA BRONCH/LUNG NOS 03/08/2017 VISHNU STARKS RESEARCH AND DEVELOPMENT ENGINEER Ot 162.3 MAL LAURA UPPER LOBE LUNG 03/08/2017 VISHNU STARKS S RESEARCH AND DEVELOPMENT ENGINEER Ot 250.00 DIAB CHETNA WO COMPL, TYPE II OR UNSPEC TY 03/08/2017 VISHNU STARKS RESEARCH AND DEVELOPMENT ENGINEER Ot 272.4 HYPERLIPIDEMIA NEC/NOS 03/08/2017 VISHNU STARKS RESEARCH AND DEVELOPMENT ENGINEER Ot 414.00 CORON ATHEROSCLER NOS TYPE VESSEL, NATIV 03/08/2017 VISHNU STARKS RESEARCH AND DEVELOPMENT ENGINEER Ot 793.0 NOSP (ABN) FINDINGS ON RADIOLOGICAL OT 03/08/2017 VISHNU STARKS RESEARCH AND DEVELOPMENT ENGINEER Ot V45.82 PERCUTANEOUS TRANSLUM CORON ANGIOPLASTY 03/08/2017 VISHNU STARKS RESEARCH AND DEVELOPMENT ENGINEER Ot V58.69 OTH MED,LT,CURRENT USE 03/08/2017 JAMMIE NAVA MD Ot C34.10 MALIGNANT NEOPLASM OF UPPER LOBE, UNSP B 03/08/2017 JAMMIE NAVA MD Ot E11.9 TYPE 2 DIABETES MELLITUS WITHOUT COMPLIC 03/08/2017 JAMMIE NAVA MD Ot E78.5 HYPERLIPIDEMIA, UNSPECIFIED 03/08/2017 JAMMIE NAVA MD Ot I25.10 ATHSCL HEART DISEASE OF [place]' CORONARY 03/08/2017 JAMMIE NAVA MD Ot Z51.11 ENCOUNTER FOR ANTINEOPLASTIC CHEMOTHERAP 03/08/2017 JAMMIE NAVA MD Ot Z79.899 OTHER RESIDENTIAL (CURRENT) DRUG THERAPY 03/08/2017 JAMMIE NAVA MD [...] CCDS Ot I25.10 ATHSCL HEART DISEASE OF [place]' CORONARY 03/08/2017 AKANKSHA FERRO FACC, ALI FACP CCDS Ot R00.2 PALPITATIONS 03/08/2017 AKANKSHA FERRO FACC, ALI FACP CCDS Ot R06.02 SHORTNESS OF BREATH 03/08/2017 AKANKSHA FERRO FACC, ALI FACP CCDS Ot Z87.891 PERSONAL HISTORY OF NICOTINE DEPENDENCE Procedures Code [place] [address] XRAY CHEST 2 VIEW 05/24/2012 Cardiolog Bradly Begum 05/24/2012 19853 ROUTINE VENIPUNCTURE 06/05/2012 57557 A1C (IN-HOUSE) 06/05/2012 11216 CBC 06/05/2012 98217 LIVER PANEL (LFT) 06/05/2012 48760 CMP 06/05/2012 [id number] GFR CALC (RESULT ONLY) 06/05/2012 45150 ROUTINE VENIPUNCTURE 06/07/2012 44180 CBC 06/07/2012 10937 CMP 06/07/2012 08024 LIPID PANEL 06/07/2012 41671 MAGNESIUM 06/07/2012 [id number] GFR CALC (RESULT ONLY) 06/07/2012 69484 TSH 06/07/2012 71404 LIPASE 06/07/2012 16171 BNP 06/07/2012 25450 PSA FREE AND TOTAL 06/07/2012 06395 EKG, TRACING (IN-HOUSE) 06/09/2012 25898 ECHO 2D 06/09/2012 61229 OXIMETRY 06/09/2012 77754 BMP 07/03/2012 48579 CMP 07/03/2012 03951 LIPID PANEL 07/03/2012 56157 A1C (IN-HOUSE) 07/03/2012 07945 HEMOGLOBIN (IN-HOUSE) 07/03/2012 05065 CBC 07/03/2012 52210 ROUTINE VENIPUNCTURE 08/05/2012 45681 EKG, TRACING (IN-HOUSE) 08/05/2012 20126 HEMOGLOBIN (IN-HOUSE) 08/05/2012 49641 A1C (IN-HOUSE) 08/05/2012 13753 CBC 08/05/2012 97518 CMP 08/05/2012 33753 LIPID PANEL 08/05/2012 36184 A1C (IN-HOUSE) 08/23/2012 Dione Conner Jeri 08/23/2012 Storm Ross 09/06/2012 52460 A1C (IN-HOUSE) 11/29/2012 95038 ROUTINE VENIPUNCTURE 02/07/2013 8141024 GFR CALC (RESULT ONLY) 02/07/2013 38388 CMP 02/07/2013 52904 LIPID PANEL 02/07/2013 10692 A1C (IN-HOUSE) 03/21/2013 49147 ROUTINE VENIPUNCTURE 03/26/2013 53163 OXIMETRY 03/26/2013 [id number] IMMATURE PLATELET FRACTION (RESULT ONLY) 03/27/2013 15367 DIFFERENTIAL WBC COUNT (CBC DIFF RESULT) 03/27/2013 81585 RETICULOCYTE COUNT 03/27/2013 09922 PERIPHERIAL BLOOD SMEAR 03/27/2013 7277505 COMPLETE BLOOD COUNT NO DIFF (CBC Result) 03/27/2013 1316383 HEMATOLOGY OTHER REPORT 03/27/2013 15324 ROUTINE VENIPUNCTURE 06/09/2013 6882921 GFR CALC (RESULT ONLY) 06/09/2013 39548 CMP 06/09/2013 90672 LIPID PANEL 06/09/2013 02849 A1C (IN-HOUSE) 06/23/2013 59858 ROUTINE VENIPUNCTURE 09/17/2013 4706752 GFR CALC (RESULT ONLY) 09/17/2013 92776 CMP 09/17/2013 70070 LIPID PANEL 09/17/2013 57501 OXIMETRY 09/24/2013 45837 A1C (IN-HOUSE) 02/18/2014 22125 ROUTINE VENIPUNCTURE 02/18/2014 36542 MICRO ALBUMIN-IN HOUSE 02/18/2014 82896 LIPID PANEL 02/18/2014 03662 LIVER PANEL (LFT) 02/18/2014 23721 URIC ACID 02/18/2014 Results Test Result Range [...] Status Pt. Type Provider Facility Loc./Unit Complaint [id number] 02/18/2014 11:25:00 02/18/2014 23:59:59 CLS Outpatient JAYE RIGGS APRN [id number] 09/24/2013 08:52:00 09/24/2013 23:59:59 CLS Outpatient IRMA ROGER DO [id number] 09/17/2013 08:27:00 09/17/2013 23:59:59 CLS Outpatient JAYE RIGGS APRN [id number] 06/23/2013 10:57:00 06/23/2013 23:59:59 CLS Outpatient JAYE RIGGS APRN [id number] 06/09/2013 07:54:00 06/09/2013 23:59:59 CLS Outpatient JAYE RIGGS APRN [place] [id number] 04/14/2013 10:21:00 04/14/2013 23:59:59 CLS Outpatient DARSHAN RODRIGUEZ MD [id number] 03/26/2013 09:21:00 03/26/2013 23:59:59 CLS Outpatient DARSHAN RODRIGUEZ MD [id number] 03/21/2013 14:10:00 03/21/2013 23:59:59 CLS Outpatient DARSHAN RODRIGUEZ MD [id number] 02/07/2013 10:19:00 02/07/2013 23:59:59 CLS Outpatient JAYE RIGGS APRN [id number] 07/03/2012 09:00:00 07/03/2012 23:59:59 CLS Outpatient [id number] 06/14/2012 10:00:00 06/14/2012 23:59:59 CLS Outpatient JAYE RIGGS APRN [place] [id number] 06/07/2012 08:04:00 06/07/2012 23:59:59 CLS Outpatient JAYE RIGGS APRN [place] [id number] 05/24/2012 09:01:00 05/24/2012 23:59:59 CLS Outpatient [id number] 11/29/2012 09:05:00 Document Registration [id number] 10/17/2012 13:38:00 Document Registration [id number] 09/06/2012 11:40:00 Document Registration [id number] 08/23/2012 08:42:00 Document Registration [id number] 08/05/2012 08:02:00 Document Registration [email or web address] 01/27/2015 10:10:15 ACT Document Registration [id number] 11/06/2017 13:20:00 11/06/2017 23:59:59 CLS Outpatient ONEIL HODGEJAYE [place]la [facility] [id number] 09/21/2016 13:34:00 09/21/2016 23:59:59 CLS Outpatient AKANKSHA FERRO FACC, DELBERT GOEL CCDS [facility] CARD I25.10,E13.9 [id number] 09/12/2016 08:59:00 09/12/2016 18:00:00 DIS Outpatient SRIDHAR BLACK [facility] CATH CAD,DM,HL [id number] 09/07/2016 15:57:00 09/07/2016 23:59:59 CLS Preadmit AKANKSHA EFRRO FAC, DELBERT GOEL CCDS [facility] RT I25.10,E13.9 [id number] 07/31/2016 10:29:00 07/31/2016 13:50:00 DIS Outpatient MILE CHOWDHURY DO [facility] SDC HISTORY LUNG CA [id number] 07/28/2016 09:18:00 07/28/2016 13:24:00 DIS Outpatient MILE CHOWDHURY DO [facility] PREOP PORT REMOVAL [id number] 04/28/2015 00:10:00 04/28/2015 23:59:59 CLS Preadmit JAMMIE NAVA MD [facility] ONC [id number] 04/14/2015 14:37:00 04/27/2015 00:01:00 DIS Outpatient JAMMIE NAVA MD [facility] ONC [id number] 01/20/2015 12:38:00 01/20/2015 00:01:00 DIS Outpatient JAMMIE NAVA MD [facility] ONC [id number] 12/16/2014 08:58:00 12/16/2014 23:59:59 CLS Outpatient VISHNU STARKS [facility] ONC [id number] 11/10/2014 14:23:00 11/10/2014 23:59:59 CLS Outpatient CHAPO BARRETO MD [facility] RAD NEOPLASM, [id number] 09/01/2014 12:50:00 09/03/2014 14:00:00 DIS Outpatient MICHAEL FERRO, DARSHAN Ruelas [facility] CATH CHEST PAIN R LUNG MASS [id number] 12/30/2012 06:03:00 12/30/2012 10:10:00 DIS Outpatient GABI VALENCIA MD [facility] SDC HEALED FRACTURE RIGHT TIBIA WITH RETAINED HARDWARE [id number] 12/25/2012 07:40:00 12/25/2012 23:59:59 CLS Outpatient GABI VALENCIA MD [facility] PREOP HEALED FRACTURE RIGHT TIBIA WITH RETAINED HARDWARE [id number] 09/01/2014 12:38:00 Document Registration [id number] 09/01/2014 12:38:00 Document Registration [id number] 06/06/2012 10:32:00 Document Registration [id number] 08/29/2011 20:50:00 Document Registration [id number] 11/16/2010 05:38:00 Document Registration [id number] 11/08/2010 06:44:00 Document Registration [id number] 07/07/2016 13:06:00 Document Registration
[2017-12-31] MEDS ORDERED: ONDANSETRON 4 MG/2 ML (SDV) Z0FRAN IV PRN (18:15)
[2017-12-31] MEDS ORDERED: ACETAMINOPHEN 500 MG TAB (TYLENOL) PO PRN (18:15)
[2017-12-31] MEDS: ASPIRIN 325 MG (5 GR) TABLET PO SCH (18:42)
[2017-12-31] MEDS: 1/2 NS W/KCL 20 MEQ/L 1,000 ML IV SCH (18:42)
[2017-12-31] MEDS ORDERED: RT-ALBUTEROL/IPRATROPIUM 3 ML (DUONEB) VIAL INH PRN (20:30)
[2017-12-31] MEDS ORDERED: RT-ALBUTEROL/IPRATROPIUM 3 ML (DUONEB) VIAL INH SCH (21:00)
[2017-12-31] MEDS ORDERED: ATORVASTATIN 80 MG (LIPITOR) TABLET PO SCH (21:00)
[2017-12-31] MEDS: PANTOPRAZOLE 20 MG TABLET (PROTONIX) PO SCH (21:02)
[2017-12-31] MEDS: PREGABALIN 75 MG (LYRICA) CAP PO SCH (21:52)
[2018-01-01] VITALS (10 sets, daily range): BP systolic 95–134; BP diastolic 69–93
[2018-01-01] MEDS: 1/2 NS W/KCL 20 MEQ/L 1,000 ML IV SCH ×2 (01:15→08:32)
[2018-01-01 03:52] LABS: BASOPHILS # (AUTO) 0.1 10^3/uL (0.0-0.1); BASOPHILS % (AUTO) 1 % (0-10); EOSINOPHILS # (AUTO) 0.3 10^3/uL (0.0-0.3); EOSINOPHILS % (AUTO) 4 % (0-10); HEMATOCRIT 43 % (40-54); HEMOGLOBIN 14.5 G/DL (13.3-17.7); LYMPHOCYTES # (AUTO) 3.1 X 10^3 (1.0-4.0); LYMPHOCYTES % (AUTO) 38 % (12-44); MEAN CORPUSCULAR HEMOGLOBIN 30 PG (25-34); MEAN CORPUSCULAR HGB CONC 34 G/DL (32-36); MEAN CORPUSCULAR VOLUME 89 FL (80-99); MEAN PLATELET VOLUME 11.2 FL (7.4-10.4); MONOCYTES % (AUTO) 11 % (0-12); NEUTROPHILS % (AUTO) 47 % (42-75); PLATELET COUNT 218 10^3/uL (130-400); RED BLOOD COUNT 4.85 10^6/uL (4.35-5.85); RED CELL DISTRIBUTION WIDTH 16.1 % (10.0-14.5); WHITE BLOOD COUNT 8.4 10^3/uL (4.3-11.0)
[2018-01-01 04:08] LABS: ALANINE AMINOTRANSFERASE 25 U/L (0-55); ALBUMIN 3.5 GM/DL (3.2-4.5); ALKALINE PHOSPHATASE 110 U/L (40-136); BILIRUBIN,TOTAL 0.4 MG/DL (0.1-1.0); BUN/CREATININE RATIO 14; CARBON DIOXIDE 19 MMOL/L (21-32); CHLORIDE 109 MMOL/L (98-107); CHOLESTEROL 141 MG/DL (< 200); CREATININE SERUM 0.95 MG/DL (0.60-1.30); GFR ESTIMATED > 60; GLUCOSE 111 MG/DL (70-105); HDL CHOLESTEROL 28 MG/DL (40-60); PHOSPHORUS 3.8 MG/DL (2.3-4.7); POTASSIUM 4.1 MMOL/L (3.6-5.0); SODIUM 141 MMOL/L (135-145); TOTAL PROTEIN 5.8 GM/DL (6.4-8.2); TRIGLYCERIDES 261 MG/DL (<150); VLDL CHOLESTEROL 52 MG/DL (5-40)
[2018-01-01] MEDS ORDERED: OMEGA 3 (FISH OIL) 1000 MG CAP PO SCH (07:00)
[2018-01-01] MEDS ORDERED: buPROPion SR 150 MG (WELLBUTRIN SR) TAB PO SCH (07:00)
[2018-01-01] MEDS ORDERED: RT-ALBUTEROL/IPRATROPIUM 3 ML (DUONEB) VIAL INH SCH (08:00)
[2018-01-01] MEDS: ASPIRIN 325 MG (5 GR) TABLET PO SCH (08:26)
[2018-01-01] MEDS: PANTOPRAZOLE 20 MG TABLET (PROTONIX) PO SCH (08:27)
[2018-01-01] MEDS: PREGABALIN 75 MG (LYRICA) CAP PO SCH (08:27)
[2018-01-01] MEDS ORDERED: ASPIRIN 325 MG (5 GR) TABLET PO SCH (09:00)
[2018-01-01] MEDS ORDERED: LORATADINE (CLARITIN) 10 MG TAB PO SCH (09:00)
--- NOTE | 2018-01-01 09:09 | Diagnostic Imaging Report ---
CLINICAL INDICATION: Patient states he had episode yesterday where he feel like he was drunk and has slurred speech. Patient has completely recovered and has no problems now. Patient has history of lung cancer but is not being treated now because of full recovery from that. Previous MRI of the brain had abnormal area in the left thalamus. EXAMINATION: MRI of the brain performed without IV contrast. Sequences include axial DWI, ADC map, axial T2, axial FLAIR, axial T1, axial gradient echo, and sagittal T1. COMPARISON: CT angiogram of the head and neck and CT scan of the brain dated 12/31/2017. MRI of the brain performed without and with IV contrast dated 11/10/2014. FINDINGS: There is no evidence of acute cerebral infarct, intracranial hemorrhage, hydrocephalus, or gross mass effect. There is interval resolution of the previously seen area of high T2 signal involving the medial left thalamus which was known to previously have an area of enhancement associated with it. There is no significant change to the multiple focal areas of high T2 signal white matter changes in both cerebral hemispheres and mildly confluent area of high T2 signal in the left periventricular region. These findings are related to chronic small vessel ischemic disease. The brain parenchymal volume appears appropriate for patient's age. The [place] vascular structures show no gross abnormality as visualized. Stable partial empty sella turcica. Basal cisterns are unremarkable. There is a partially visualized 13 mm low T2, low T1 signal lesion in the superficial portion of the tail of the right parotid gland which is also partially visualized on the prior study/MRI, but not enough to compare. This area was noted to demonstrate enhancement on the prior study. Otherwise, the extracranial soft tissue, skull, and orbits are unremarkable. There is minimal mucosal thickening involving the frontal sinus and ethmoid sinus. Temporal bone structures show no significant abnormality. IMPRESSION: 1: There is no evidence of acute intracranial process. 2: There is resolution of the previously seen small area of high T2 signal involving the left thalamus. This area was previously known to enhance. 3: Stable focal and mildly confluent areas of high T2 signal white matter changes involving both cerebral hemispheres and left periventricular region, likely representing chronic small vessel ischemic disease and/or post treatment changes. 4: Again noted circumscribed mass in the tail of the right parotid gland. This lesion demonstrated enhancement on the prior study. Considerations would include a primary salivary gland neoplasm such as mucoepidermoid tumor or adenoid cystic carcinoma given its low T2 signal. Atypical pleomorphic adenoma may be considered. Pathologic lymph node also cannot be completely excluded. ENT consultation is suggested. 5: Mild ethmoid sinus and frontal sinus disease. Dictated by: Dictated on workstation # [id number]
--- NOTE | 2018-01-01 09:10 | Diagnostic Imaging Report ---
INDICATION: Stroke. TECHNIQUE: Single view chest 3:31 AM. CORRELATION STUDY: 12/31/2017 FINDINGS: Heart size enlarged, mediastinum prominent. Prominent appearance about the hilar structures right greater than left. Vasculature overall slightly increased. Chronic type change about the lung parenchyma. No focal infiltrate. Pleural thickening along the right lateral chest wall. IMPRESSION: 1. Generally stable chest. Cardiac enlargement with borderline vasculature. Chronic change of the lung parenchyma. No significant infiltrates. Dictated by: Dictated on workstation # [id number]
--- NOTE | 2018-01-01 10:18 | Physical Therapy Evaluation ---
PT Evaluation-General Medical Diagnosis Admission Date Dec 31, 2017 at 15:45 Medical Diagnosis: possible CVA Onset Date: Dec 31, 2017 Therapy Diagnosis Therapy Diagnosis: debility Height/Weight Height (Feet): 5 Height (Inches): 11.00 Weight (Pounds): 221 Weight (Ounces): 6.0 Precautions Precautions/Isolations: Fall Prevention, Standard Precautions Weight Bear Status Right Lower Extremity: Right Full Weight Bearing Left Lower Extremity: Left Full Weight Bearing Referral Physician: Milind Reason for Referral: Evaluation/Treatment Medical History Pertinent Medical History: COPD, CVA, DM, HTN, Smoking Current History D with stroke like symptoms, slurred speech and "felt drunk" Reviewed History: Yes Social History Home: Single Level Current Living Status: Significant Other Prior/Core FIM Prior Level of Function Functional [place] Measure 0=Not Assessed/NA 4=Minimal Assistance 1=Total Assistance 5=Supervision or Setup 2=Maximal Assistance 6=Modified [place] 3=Moderate Assistance 7=Complete [place] Bed Mobility: 7 Transfers (B,C,W/C) (FIM): 7 Gait: 7 Locomotion: 7 PT Evaluation-Current Subjective Patient agrees to PT. Pain Numeric Pain Scale: 0-No Pain Location: No Pain Reported Objective Patient Orientation: Normal For Age Problem Solving: Good ROM/Strength ROM Lower Extremities bilateral Le WNL Strength Lower Extremities 5/5 grossly bilaterally Integumentary/Posture Integumentary refer to nursing notes Bowel Incontinence: No Bladder Incontinence: No Posture WFL Neuromuscular (Tone, Coordination, Reflexes) grossly intact Sensory Vision: Wears Glasses Hearing: Functional Sensation Right Lower Extremit: Intact Sensation Left Lower Extremity: Intact Transfers Functional [place] Measure 0=Not Assessed/NA 4=Minimal Assistance 1=Total Assistance 5=Supervision or Setup 2=Maximal Assistance 6=Modified [place] 3=Moderate Assistance 7=Complete [place] Transfers (B, C, W/C) (FIM): 7 Scootin Rollin Supine to/from Sit: 7 Sit to/from Stand: 7 Gait Mode of Locomotion: Walk Anticipated Mode of Locomotion: Walk Gait (FIM): 7 Distance (FIM): 3=150 ft Distance: >400' Gait Level of Assist: 7 Gait Assistive Device: None Comments/Gait Description normal gait sequence with no deviation Balance Sitting Static: Normal Sitting Dynamic: Normal Standing Static: Normal Standing Dynamic: Normal Assessment/Needs 62 y.o. male, is currently at [facility] with all gross motor skills and does not requires skilled PT intervention at this time. Rehab Potential: Fair PT Plan Treatment/Plan Treatment Plan: Continue Plan of Care Treatment Plan: Other Treatment Duration: Jan 01, 2018 Frequency: 1 time per week Estimated Hrs Per Day: .5 hour per day Patient and/or Family Agrees t: Yes Time/GCodes Time In: 925 Time Out: 943 Total Billed Treatment Time: 18 Total Billed Treatment 1 visit EVModC 18 min G Codes Necessary: No LIAT MANUEL PT Jan 01, 2018 10:18
[2018-01-01] MEDS ORDERED: OMEP20CA12 PO (11:07)
[2018-01-01] MEDS ORDERED: CALC-78 PO (11:07)
[2018-01-01] MEDS ORDERED: METF500T8 PO (11:07)
[2018-01-01] MEDS ORDERED: RT-ALBUINH IH (11:07)
[2018-01-01] MEDS ORDERED: MULT-974 PO (11:07)
[2018-01-01] MEDS ORDERED: PREG150C PO (11:07)
[2018-01-01] MEDS ORDERED: MONT10TA21 PO (11:07)
[2018-01-01] MEDS ORDERED: NORT25CA PO (11:07)
[2018-01-01] MEDS ORDERED: ASPI-983 PO (11:07)
[2018-01-01] MEDS ORDERED: POTA2TAB5 PO (11:07)
[2018-01-01] MEDS ORDERED: BUPR300T43 PO (11:07)
--- NOTE | 2018-01-01 11:25 | Short Stay Summary ---
History of Present Illness History of Present Illness Reason for visit/HPI Patient admitted to hospital after having stroke-like symptoms yesterday. He stated he felt like he was drunk although he had not drank in several days and had some stuttering and slurred speech as well as stumblinb and balance difficulty. He took a friend to a doctor's visit and reportedly passed out while in the waiting room, but still went home after. Later decided to go ahead and call EMS. By the time of arrival to ER he was doing better. Date of Admission Dec 31, 2017 at 3:45 pm Date of Discharge Jan 01, 2018 Time Seen by Provider: 09:37 Attending Physician Alison Vaz MD Admitting Physician Su Robles DO Consult Allergies and Home Medications Allergies Coded Allergies: celery (Unverified Allergy, Unknown, 07/28/16) clopidogrel (Verified Adverse Reaction, Unknown, NAUSEA, 07/28/16) ticagrelor (Verified Adverse Reaction, Unknown, NAUSEA, 07/28/16) Home Medications Albuterol Sulfate 1 Puff Puff, 2 PUFF IH Q4H PRN for SHORTNESS OF BREATH, ( Reported) 1 PUFF = 90 MCG Aspirin 81 Mg Tablet.dr, 81 MG PO DAILY, (Reported) Atorvastatin Calcium 80 Mg Tablet, 40 MG PO HS, (Reported) TAKES 1/2 (80MG) TABLET Bupropion HCl 300 Mg Tab.er.24h, 300 MG PO DAILY, (Reported) Calcium Carbonate/Vitamin D3 1 Each Tablet, 1 TAB PO DAILY, (Reported) Cetirizine HCl 10 Mg Tablet, 10 MG PO DAILY, (Reported) Fluticasone Propionate 16 Gm [place].susp, 2 SPRAY NS DAILY, (Reported) Magnesium Oxide 250 Mg Tablet, 250 MG PO HS, (Reported) Metformin HCl 500 Mg Tab.er.24h, 1,000 MG PO BID, (Reported) TAKES 2 (500MG) TABLETS Montelukast Sodium 10 Mg Tablet, 10 MG PO HS, (Reported) Multivitamin 1 Each Tablet, 1 TAB PO DAILY, (Reported) Naphazoline HCl/Pheniramine 15 Ml Drops, 1 DROP OU DAILY, (Reported) Nortriptyline HCl 25 Mg Capsule, 25 MG PO HS, (Reported) [place]-3 Fatty Acids/Fish Oil 1 Each Capsule, 2,400 MG PO BID, (Reported) TAKES 2 (1,200 MG) CAPSULES Omeprazole 20 Mg Capsule.dr, 20 MG PO BID, (Reported) Potassium Gluconate 90 Mg Tablet, 90 MG PO HS, (Reported) Pregabalin 150 Mg Capsule, 150 MG PO BID, (Reported) Patient Home Medication List Home Medication List Reviewed: Yes Past Lyccsqd-Bwpzdq-[place] Hx Patient Social History Alcohol Use: Occasionally Uses Number of Drinks Today: 1 Alcohol Beverage of Choice: Wine Recreational Drug Use: No Smoking Status: Current Everyday Smoker Type Used: Cigarettes Physical Abuse Screen: No Sexual Abuse: No Recent Foreign Travel: No Contact w/other who traveled: No Recent Hopitalizations: No Recent Infectious Disease Expo: No Immunizations Up To Date Date of Pneumonia Vaccine: Dec 27, 2017 Date of Influenza Vaccine: Jan 31, 2016 Seasonal Allergies Seasonal Allergies: Yes Surgeries Yes Coronary Stent Respiratory Yes Currently Using CPAP: Yes Currently Using BIPAP: No Cardiovascular Yes Coronary Artery Disease, High Cholesterol Neurological Yes (MILD MEMORY PROBLEMS) Stroke Reproductive System Hx Reproductive Disorders: No Sexually Transmitted Disease: No HIV/AIDS: No Genitourinary No Gastrointestinal Yes Gastroesophageal Reflux Musculoskeletal Yes Chronic Back Pain Endocrine History of Endocrine Disorders: Yes Endocrine Disorders: Diabetes, Non-Insulin dep Are Your Blood Sugars Over 250: No HEENT History of HEENT Disorders: Yes HEENT Disorders: Chronic Ear Infection Loss of Vision: Denies Hearing Impairment: Hard of Hearing Cancer Yes Lung Type of Treatment: Chemotherapy, Surgical Intervention Psychosocial History of Psychiatric Problem: Yes Behavioral Health Disorders: Depression Integumentary History of Skin or Integumenta: No Blood Transfusions History of Blood Disorders: No Adverse Reaction to a Blood Tr: No Family Medical History Significant Family History: Heart Disease, Cancer Family Hx: FH: emphysema 19 FATHER FH: lung cancer 19 FATHER FH: ovarian cancer G8 SISTER Neuroblastoma G8 SISTER Quadrupal cardiac bipass 19 FATHER Review of Systems Constitutional: see HPI EENTM: no symptoms reported Respiratory: No short of breath Cardiovascular: No chest pain Gastrointestinal: No abdominal pain, No constipation, No diarrhea; nausea ( with episode yesterday); No vomiting Genitourinary: no symptoms reported Musculoskeletal: joint pain Skin: No rash Psychiatric/Neurological: No Symptoms Reported Physical Exam Vital Signs Vital Signs - First Documented 12/31/17 12/31/17 13:20 21:50 Temp 98.0 Pulse 84 Resp 18 B/P (MAP) 117/84 (95) Pulse Ox 96 O2 Delivery Room Air O2 Flow Rate 2.00 Capillary Refill : Less Than 3 Seconds Height, Weight, BMI Height: 5'11.00" Weight: 221lbs. 6.0oz. 100.377156lb; 30.7 BMI Method:Stated General Appearance: No Apparent Distress, WD/WN, Other (standing at side of bed , ready to walk with PT) Eyes: Bilateral Eye Normal Inspection Respiratory: Lungs Clear Cardiovascular: Regular Rate, Rhythm, No Edema, No Murmur Gastrointestinal: Normal Bowel Sounds, Soft Extremity: No Pedal Edema Neurologic/Psychiatric: Alert, Oriented x3, No Motor/Sensory Deficits, Normal Mood/Affect Skin: Normal Color, Warm/Dry Clinical Quality Measures DVT/VTE Risk/Contraindication: Risk Factor Score Per Nursin RFS Level Per Nursing on Admit: 3=High Stroke: Date of last known well: Dec 31, 2017 Time of last known well: 10:15 Symptoms onset unknown: No Quality Measures-Stroke Pt: D/C'd on Antithrombotic, Smoking Cessation Short Stay Diagnosis Discharge Diagnosis-Short Stay Admission Diagnosis: Stroke like symptoms Tobacco use Final Discharge Diagnosis: TIA Parotid abnormality- discussed results of MRI with patient showing parotid mass, recommend ENT referral per Radiology, he will discuss with Reji to get set up through [place]. Tobacco use- encouraged cessation Conclusion Labs Laboratory Tests 12/31/17 13:20: White Blood Count 9.3, Red Blood Count 5.29, Hemoglobin 15.8, Hematocrit 47, Mean Corpuscular Volume 88, Mean Corpuscular Hemoglobin 30, Mean Corpuscular Hemoglobin Concent 34, Red Cell Distribution Width 15.8H, Platelet Count 243, Mean Platelet Volume 11.1H, Neutrophils (%) (Auto) 55, Lymphocytes (%) (Auto) 32 , Monocytes (%) (Auto) 9, Eosinophils (%) (Auto) 3, Basophils (%) (Auto) 1, Neutrophils # (Auto) 5.1, Lymphocytes # (Auto) 3.0, Monocytes # (Auto) 0.9, Eosinophils # (Auto) 0.3, Basophils # (Auto) 0.1, Prothrombin Time 12.5, INR Comment 0.9, Activated Partial Thromboplast Time 25, D-Dimer < 0.27, Sodium Level 140, Potassium Level 4.2, Chloride Level 107, Carbon Dioxide Level 25, Anion Gap 8, Blood Urea Nitrogen 13, Creatinine 1.14, Estimat Glomerular Filtration Rate > 60, BUN/Creatinine Ratio 11, Glucose Level 134H, Calcium Level 9.3, Corrected Calcium 9.2, Total Bilirubin 0.3, Aspartate Amino Transf ( AST/SGOT) 21, Alanine Aminotransferase (ALT/SGPT) 25, Alkaline Phosphatase 131, Troponin I < 0.30, Total Protein 7.2, Albumin 4.1 12/31/17 13:47: Glucometer 149H 01/01/18 02:55: White Blood Count 8.4, Red Blood Count 4.85, Hemoglobin 14.5, Hematocrit 43, Mean Corpuscular Volume 89, Mean Corpuscular Hemoglobin 30, Mean Corpuscular Hemoglobin Concent 34, Red Cell Distribution Width 16.1H, Platelet Count 218, Mean Platelet Volume 11.2H, Neutrophils (%) (Auto) 47, Lymphocytes (%) (Auto) 38 , Monocytes (%) (Auto) 11, Eosinophils (%) (Auto) 4, Basophils (%) (Auto) 1, Neutrophils # (Auto) 4.0, Lymphocytes # (Auto) 3.1, Monocytes # (Auto) 1.0, Eosinophils # (Auto) 0.3, Basophils # (Auto) 0.1, Sodium Level 141, Potassium Level 4.1, Chloride Level 109H, Carbon Dioxide Level 19L, Anion Gap 13, Blood Urea Nitrogen 13, Creatinine 0.95, Estimat Glomerular Filtration Rate > 60, BUN/ Creatinine Ratio 14, Glucose Level 111H, Calcium Level 9.0, Corrected Calcium 9.4, Total Bilirubin 0.4, Aspartate Amino Transf (AST/SGOT) 21, Alanine Aminotransferase (ALT/SGPT) 25, Alkaline Phosphatase 110, Total Protein 5.8L, Albumin 3.5, Phosphorus Level 3.8, Magnesium Level 2.0, Triglycerides Level 261H , Cholesterol Level 141, LDL Cholesterol Direct 88, VLDL Cholesterol 52H, HDL Cholesterol 28L Conclusion/Plan Admitted for observation and MRI in the am. His CTA head/neck showed no blockages. MRI showed no evidence of acute abnormality but did note area of concern in parotid gland which will need ENT referral for further evaluation. No neurologic deficits noted in swallowing, speech or physical activity. Echocardiogram done, results pending at time of d/c. Patient continued on aspirin and atorvastatin as well his regular medications for his other chronic conditions and encouraged to quit smoking. Copy Copies To 1: AYESHA Fraga BETHANY N MD Jan 01, 2018 11:24
--- NOTE | 2018-01-01 11:30 | Discharge Instructions ---
Discharge Inst-[facility] Discharge Medications New, Converted or Re-Newed RX: Other (no changes) Continued Medications: Albuterol Sulfate (Proair Hfa) 1 Puff Puff 2 PUFF IH Q4H PRN for SHORTNESS OF BREATH, PUFF 1 PUFF = 90 MCG Aspirin (Aspirin EC) 81 Mg Tablet.dr 81 MG PO DAILY, TAB Atorvastatin Calcium (Atorvastatin Calcium) 80 Mg Tablet 40 MG PO HS, TAB TAKES 1/2 (80MG) TABLET Bupropion HCl (Wellbutrin Xl) 300 Mg Tab.er.24h 300 MG PO DAILY, TAB Calcium Carbonate/Vitamin D3 (Calcium 500 + Vit D Caplet) 1 Each Tablet 1 TAB PO DAILY, TAB Cetirizine HCl (Cetirizine HCl) 10 Mg Tablet 10 MG PO DAILY, TAB Fluticasone Propionate (Fluticasone Propionate) 16 Gm [place].susp 2 SPRAY NS DAILY, INHALER Magnesium Oxide (Magnesium) 250 Mg Tablet 250 MG PO HS, TAB Metformin HCl (Metformin HCl ER) 500 Mg Tab.er.24h 1000 MG PO BID, TAB TAKES 2 (500MG) TABLETS Montelukast Sodium (Singulair) 10 Mg Tablet 10 MG PO HS, TAB Multivitamin (Multi-Vitamin Daily) 1 Each Tablet 1 TAB PO DAILY, TAB Naphazoline HCl/Pheniramine (Allergy Eye Drops) 15 Ml Drops 1 DROP OU DAILY, DROPS Nortriptyline HCl (Nortriptyline HCl) 25 Mg Capsule 25 MG PO HS, CAP [place]-3 Fatty Acids/Fish Oil (Fish Oil 1,200 mg Softgel) 1 Each Capsule 2400 MG PO BID, CAP TAKES 2 (1,200 MG) CAPSULES Omeprazole (Omeprazole) 20 Mg Capsule.dr 20 MG PO BID, CAP Potassium Gluconate (Potassium Gluconate) 90 Mg Tablet 90 MG PO HS, TAB Pregabalin (Lyrica) 150 Mg Capsule 150 MG PO BID, CAP Patient Instructions Goal/Follow Up Appt: Follow up at [facility] with Reji Hinojosa on 01/10 at 9:20 am. Patient Instructions: Talk to Reji about an ENT referral for the abnormal area seen on your parotid gland on the MRI. Do not take metformin until 48 hours after receiving contrast for your CT scan. Return to [facility]: Weakness, slurred speech, balance problems Activity & Diet Discharge Diet: Cardiac Diet Activity as Tolerated: Yes SRAVAN LOVE MD Jan 01, 2018 11:19 am
--- NOTE | 2018-01-01 11:55 | Occupational Therapy Eval ---
OT Evaluation-General/PLF Medical Diagnosis Admission Date Dec 31, 2017 at 15:45 Medical Diagnosis: possible CVA Onset Date: Dec 31, 2017 Therapy Diagnosis Therapy Diagnosis: decr self care Height/Weight Height (Feet): 5 Height (Inches): 11.00 Weight (Pounds): 221 Weight (Ounces): 6.0 Precautions Precautions/Isolations: Fall Prevention, Standard Precautions Safety Interventions: None Referral Physician: Milind Referral Reason: Evaluation/Treatment Medical History Pertinent Medical History: Arthritis, CAD, COPD, CVA, DM, GERD, HTN, NM, Smoking Additional Medical History Coronary stent. Emphysema. Chronic back pain. Depression Current History Off balance, felt like he was drunk, slurred speech, chest pain Reviewed History: Yes Social History Home: Single Level Current Living Status: Alone ADL-Prior Level of Function ADL PLOF Comments Pt reported that he has been able to care for himself and his home, drives, takes friends places, cares for his cat Keenan Giraldo. 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 No pain mentioned Appearance Alert, cooperative Current Glasses/Contacts: Yes Hand Dominance: Right Upper Extremity ROM grossly WFL bilat Upper Extremity Coordination no problems, per pt report Upper Extremity Sensation no problems per pt report Upper Extremity Strength 5/5 bilat ADL-Treatment ADL-Current He is up ad sanju in his room, taking himself to the bathroom, feeding himself, able to put slipper socks on. He said yesterday he had problems with self care but today he is feeling great. His only problem, per his report, is sometimes with his speech, with slurred words or difficulty finding words. Info shared with his nurse. He may benefit from speech therapy assessment, especially if symptoms persist. No skilled OT needs identified Functional [place] Measure 0=Not Assessed/NA 4=Minimal Assistance 1=Total Assistance 5=Supervision or Setup 2=Maximal Assistance 6=Modified [place] 3=Moderate Assistance 7=Complete IndependenceIRFPAI Quality Coding Scale 6 Independent with activity with or without an assistive device 5 Patient requires set up or clean up by helper. Patient completes activity by themselves 4 Supervision or touching assist (CGA). [place] provide cues , steadying assist 3 The helper provides less than half the effort to complete the activity 2 The helper provides more than half the effort to complete the activity 1 Dependent. The helper does all the effort to complete an activity 7 Patient refused to complete or attempt activity 9 The patient did not perform the activity before the current illness or injury 88 Not attempted due to Medical conditions or safety concerns Education OT Patient Education: Purpose of tx/functional activities, Rehab process Teaching Recipient: Patient Teaching Methods: Discussion Response to Teaching: Verbalize Understanding OT Education/Plan Problem List/Assessment Assessment: No Skilled OT Needs ID'd No skilled OT needs identified . He is indep with ADLs, has no UE strength deficits Discharge Recommendations Plan/Recommendations: Discontinue OT Treatment Plan/Plan of Care Treatment,Training & Education: No Patient would benefit from OT for education, treatment and training to promote independence in ADL's, mobility, safety and/or upper extremity function for ADL' s. Plan of Care: OTHER (DC OT) Treatment Duration: Jan 01, 2018 Frequency: 1 time per week Estimated Hrs Per Day: Other (C+DC) Rehab Potential: Fair Time/GCodes Start Time: 11:15 Stop Time: 11:35 Total Time Billed (hr/min): 20 Billed Treatment Time visit, 20 minutes evaluation low intensity KRISTAN KNOWLES OT Jan 01, 2018 11:55
== END 2018-01-01 11:17 | disposition home or self-care (01) ==
LOC: ER 13:17 → EDUNIT# 13:17 → UNDOADMOB 15:45 → ICU 15:45 → UNDODISOB 01-01 14:05
PROVIDERS: ADMIT Family Medicine; ATTEND Family Medicine
DX: G45.9 Transient cerebral ischemic attack, unspecified (principal); E11.9 Type 2 diabetes mellitus without complications; H91.90 Unspecified hearing loss, unspecified ear; K21.9 Gastro-esophageal reflux disease without esophagitis; E78.00 Pure hypercholesterolemia, unspecified; I25.10 Atherosclerotic heart disease of native coronary artery without angina pectoris; I69.398 Other sequelae of cerebral infarction; F17.210 Nicotine dependence, cigarettes, uncomplicated; Z95.5 Presence of coronary angioplasty implant and graft; Z92.21 Personal history of antineoplastic chemotherapy; Z85.118 Personal history of other malignant neoplasm of bronchus and lung; Z79.84 Long term (current) use of oral hypoglycemic drugs; Z79.899 Other long term (current) drug therapy
CPT/HCPCS: 36415; 70450; 70496; 70498; 70551; 71045; 80053; 80061; 82962; 83735; 84100; 84484; 85025; 85379; 85610; 85730; 87081; 93005; 93041; 93306; 94640; 96360; G0378

== ENCOUNTER → 2018-03-05 | Outpatient (CLI) | payer OTHER ==
[~2018-03-05] MED LIST changes: +ASPI-983 PO; +CALC-78 PO; +METF500T8 PO; +MONT10TA21 PO; +MULT-974 PO; +NORT25CA PO; +OMEP20CA12 PO; +POTA2TAB5 PO; +PREG150C PO; +PREGABALIN
[2018-03-05 11:22] LABS: ABG BASE EXCESS -0.8 MMOL/L (-2.5-2.5); ABG OXYGEN SATURATION 94 % (94-100); ABG PCO2 35 MMHG (35-45); ABG PH 7.43 (7.37-7.43); ABG PO2 65 MMHG (79-93); ABG TCO2 24.1 MMOL/L (21.0-31.0)
[2018-03-05 11:24] LABS: ALLENS TEST YES-POS; INSPIRED O2 ROOM AIR; PATIENT TEMP 97.8; VENTILATOR NO
[2018-03-05 11:27] LABS: BUN/CREATININE RATIO 11; GFR ESTIMATED > 60
== END ==
LOC: RT 10:37
PROVIDERS: ATTEND Nurse Practitioner Family
DX: J44.9 Chronic obstructive pulmonary disease, unspecified (principal); R06.02 Shortness of breath; G47.30 Sleep apnea, unspecified; Z72.0 Tobacco use; Z85.118 Personal history of other malignant neoplasm of bronchus and lung
CPT/HCPCS: 36415; 36600; 82565; 82805; 84520; 94761

== ENCOUNTER → 2018-03-11 | Outpatient (CLI) | payer OTHER ==
[~2018-03-11] MED LIST changes: +IOHEXOL 350 MG/ML 150 ML (OMNIPAQUE 350) VIAL IV ONE; +NS 250 ML (IVPB) BAG IV ONE; +RECEIVED CONTRAST (Hold Metformin) IV SCH; +RT-ALBUTEROL SULF 2.5 MG/3 ML PRE-MIX VIAL INH ONE
--- NOTE | 2018-03-11 18:24 | Diagnostic Imaging Report ---
PROCEDURE: CT angiography of the chest with contrast. TECHNIQUE: Multiple contiguous axial images were obtained through the chest after uneventful bolus administration of intravenous contrast. 2D reconstructed CTA MIP acquisitions were also performed. INDICATION: Lung cancer, emphysema. FINDINGS: The previous CTA chest exam of 09/01/2014 noted an irregular 4.5 cm mass in the posterior segment of the right upper lobe. Reportedly, this mass did proved to be neoplastic and was surgically resected. On this study, there is no sign of a recurrent mass within the right lung. There is a small 8.8 x 17.7 mm low-density mass in the right hilum. This finding is similar to the prior study and is most likely related to a small lymph node. The 14.3 mm aorticopulmonary window node noted previously is again evident and now measures 15.4 mm. The 10.7 mm paratracheal node on the left seen previously now measures 10.4 mm. The other lymph nodes in the mediastinum are essentially no different. There are emphysematous changes involving both lungs. Scar formation has also developed in the right lower lobe. There is no sign of pneumonia, failure, or pleural effusion. The heart size is stable. Coronary artery calcifications are again noted. The aorta is not abnormally dilated and there is no sign of dissection. There is no defect within the pulmonary arteries to indicate pulmonary embolus. The thyroid gland where visualized is unremarkable. The sections through the upper abdomen show that the liver is of lower density than usually seen. This does suggest fatty metamorphosis. The liver does seem to be homogeneous. There is no acute abnormality of the upper abdomen. The bone windows are unremarkable for fracture or for destructive lesion. IMPRESSION: 1. The mass in the superior segment of the right lower lobe seen on the prior exam has been resected. There is no sign of recurrent mass in the right lung. 2. The nodes in the [place] and mediastinum seem similar to the previous study. No new adenopathy has developed to suggest neoplastic disease. 3. There are emphysematous changes involving both lungs but there is no sign of an acute cardiopulmonary abnormality. 4. There is fatty metamorphosis of the liver. Dictated by: Dictated on workstation # [id number]
== END ==
LOC: RAD 11:29
PROVIDERS: ATTEND Nurse Practitioner Family
DX: C34.90 Malignant neoplasm of unspecified part of unspecified bronchus or lung (principal); J43.9 Emphysema, unspecified; K76.0 Fatty (change of) liver, not elsewhere classified; G47.30 Sleep apnea, unspecified; Z72.0 Tobacco use
CPT/HCPCS: 71275; 94060; 94726; 94729

== ENCOUNTER → 2018-03-12 | Day surgery (SDC) | payer OTHER ==
[~2018-03-12] VITALS: Ht 180.3 cm; Wt 99.8 kg
[~2018-03-12] MED LIST changes: -IOHEXOL 350 MG/ML 150 ML (OMNIPAQUE 350) VIAL IV ONE; +LIDOCAINE 1% INJ 20 ML 20 ML VIAL ONE; -NS 250 ML (IVPB) BAG IV ONE; -RECEIVED CONTRAST (Hold Metformin) IV SCH; -RT-ALBUTEROL SULF 2.5 MG/3 ML PRE-MIX VIAL INH ONE
--- OUTSIDE RECORDS SUMMARY | 2018-03-12 07:54 | XMS REPORT ---
Author Author JAYE RIGGS [facility] Address [address] [place] [address] Care Team Providers Care Office Rep Name Role Phone JAYE RIGGS Unavailable PROBLEMS Type Condition ICD9-CM Code TNK22-UX Code Onset Dates Condition Status SNOMED Code Problem Tinnitus of left ear H93.12 Active 3131950281038 Problem Type 2 diabetes mellitus with hyperglycemia E11.65 Active 432308963751404 Problem Tinnitus of both ears H93.13 Active 8334390187365 Problem Gastroesophageal reflux disease with esophagitis K21.0 Active 371712021 Problem Altered mental status R41.82 Active 409596484 Problem Observed sleep apnea G47.30 Active 05020628 Problem Type 2 diabetes mellitus with other diabetic neurological complication E11.49 Active 83563125 Problem Cerebrovascular accident (CVA) due to embolism of other cerebral artery I63.49 Active 783105287 Problem Type 2 diabetes mellitus with diabetic neuropathy, without long-term current use of insulin E11.40 Active 78583650 Problem Essential (primary) hypertension I10 Active 29017334 Problem Type 2 diabetes mellitus without complications E11.9 Active 809132170 Problem Elevated white blood cell count, unspecified D72.829 Active 196598039 Problem Neuropathy G62.9 Active 250327770 Problem Controlled type 2 diabetes mellitus without complication, without long -term current use of insulin E11.9 Active 381394256 Problem Atherosclerotic heart disease of [place] coronary artery without angina pectoris I25.10 Active 269921754381990 Problem Seasonal allergic rhinitis due to other allergic trigger J30.89 Active 124837180 Problem Type 2 diabetes mellitus with foot ulcer E11.621 Active 787253533 Problem Bilateral tinnitus H93.13 Active [id number] ALLERGIES No Information ENCOUNTERS Encounter Location Date Diagnosis [facility] [place] [address] [facility] [id number] [place] [address] Feb, Type 2 diabetes mellitus without complications E11.9 ; Tobacco abuse Z72.0 ; Tobacco abuse counseling Z71.6 and Atherosclerotic heart disease of [place] coronary artery without angina pectoris I25.10 [place] [address] [address] 08 Feb, 2018 Type 2 diabetes mellitus without complications E11.9 ; Tobacco abuse Z72.0 ; Tobacco abuse counseling Z71.6 ; Atherosclerotic heart disease of [place] coronary artery without angina pectoris I25.10 ; Seborrheic keratoses L82.1 and Gastroesophageal reflux disease with esophagitis K21.0 [facility] [address] [address] Jan, Abscess L02.91 [place] [address] [address] Jan, Neuropathy G62.9 [place] [address] [address] 20 Dec, 2017 Neuropathy G62.9 ; Cerebrovascular accident (CVA) due to embolism of other cerebral artery I63.49 and Seasonal allergic rhinitis due to other allergic trigger J30.89 [facility] [place] [address] [address] 10 Dec, 2017 Altered mental status R41.82 [place] [address] [address] 16 Nov, 2017 Type 2 diabetes mellitus with diabetic neuropathy, without long-term current use of insulin E11.40 [place] [address] [address] Oct, Neuropathy G62.9 ; Type 2 diabetes mellitus with other diabetic neurological complication E11.49 ; Type 2 diabetes mellitus with hyperglycemia E11.65 ; Actinic keratoses L57.0 and Observed sleep apnea G47.[address] [address] 19 Sep, 2017 Tinnitus of both ears H93.13 and Actinic keratitis, unspecified laterality H16.[address] [address] August, Type 2 diabetes mellitus without complications E11.9 and Controlled type 2 diabetes mellitus without complication, without long-term current use of insulin E11.9 [facility] [place] [address] [place] [id number] [place] [address] August, Seborrheic keratoses L82.1 and Tinnitus of left ear H93.12 [facility] [place] [address] [place] [id number] [place] [address] Jul, Controlled type 2 diabetes mellitus without complication, without long-term current use of insulin E11.9 ; Seborrheic keratoses L82.1 ; Bilateral tinnitus H93.13 and Seasonal allergic rhinitis due to other allergic trigger J30.89 [facility] [address] [id number] May, Encounter for dental examination Z01.20 [facility] [address] [id number] Jan, Encounter for dental examination Z01.20 [facility] [place] [address] [place] [id number] [place] [address] Jan, Type 2 diabetes mellitus without complications E11.9 and Acute non-recurrent maxillary sinusitis J01.00 [facility] [address] [place] [id number] [place] [address] Dec, Right ear impacted cerumen H61.21 and Acute suppurative otitis media of right ear without spontaneous rupture of tympanic membrane, recurrence not specified H66.001 [facility] [place] [address] [place] [id number] [place] [address] Nov, Type 2 diabetes mellitus without complications E11.9 and Neuropathy G62.9 [facility] [address] [place] [id number] [place] [id number] Oct, Encounter for dental examination Z01.20 [facility] [address] [place] [id number] [place] [id number] Jun, Dental examination Z01.20 [facility] [place] [address] [place] [address] 16 Jun, 2016 Atherosclerotic heart disease of [place] coronary artery without angina pectoris I25.10 [place] [address] [place] [id number] [place] [address] 15 Jun, 2016 Atherosclerotic heart disease of [place] coronary artery without angina pectoris I25.10 [place] [address] [place] [id number] [place] [address] 13 Jun, 2016 Type 2 diabetes mellitus without complications E11.9 [facility] [address] [place] [id number] [place] [id number] May, Encounter for dental examination Z01.20 [facility] [address] [id number] Apr, Dental caries K02.9 [facility] [address] [id number] Apr, Dental examination Z01.20 [place] [address] [place] [id number] [place] [address] Dec, Type 2 diabetes mellitus without complications E11.9 ; 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 ; Essential (primary) hypertension I10 and Elevated white blood cell count, unspecified D72.829 [place] [address] [place] [id number] [place] [address] Jul, Diabetes mellitus without mention of complication, type II or unspecified type, not stated as uncontrolled 250.00 [place] [address] [place] [id number] [place] [address] Jul, [place] [address] [address] Jan, Encounter for immunization Z23 [facility] [address] [place] [id number] [place] [address] [id number] Dec, Dental examination V72.2 [place] [address] [address] Nov, Cancer of lung, upper lobe 162.3 [facility] [address] [facility] [address] [id number] [place] [address] Sep, Lung cancer 162.9 ; CAD (coronary artery disease) 414.00 and Depression 311 [facility] [address] [id number] [place] [address] 9076 14 Jul, 2014 [facility] [address] [facility] [id number] [place] [address], [place] [address] Jul, [facility] [address] [id number] [place] [address] Jun, [facility] [address] [facility] [id number] [place] [address], [place] Jun, [facility] [address] [address] Mar, [facility] [address] [place] [id number] [place] [address], [place] [address] Mar, [facility] [address] [place] [id number] [place] [address] 94[address] Jan, [facility] [address] [place] [id number] [place] [address]- 1664 Jan, [facility] [address] [place] [id number] [place] [address]- 50[address] Jan, [facility] [address] [facility] [address] [id number] [place] [address] Jan, [facility] [address] [facility] [address] [id number] [place] [address] Jan, [facility] [address] [facility] [address] [id number] [place] [address]- 2226 Jan, [facility] [address] [facility] [address] [id number] [address] Dec, [facility] [address] [id number] [address] Dec, [facility] [place] [facility] [address] [id number] [place] [address]- 6[address] Oct, [facility] [place] [facility] [address] [id number] [place] [address]- 7246 Oct, [facility] [place] [facility] [address] [id number] [place] [address]- 5[address] Sep, [facility] [place] [facility] [address] [id number] [place] [address]- 8210 Sep, [facility] [place] [facility] [address] [id number] [place] [address]- 0420 August, [facility] [place] [facility] [address] [id number] [place] [address]- 4046 August, [facility] [place] [facility] [address] [id number] [place] [address]- 6586 August, [facility] [place] [facility] [address] [id number] [place] [address]- 7131 August, [facility] [place] [facility] [address] [id number] [place] [address]- 3079 August, [facility] [place] [facility] [address] [id number] [place] [address]- 2879 August, [facility] [place] [facility] [address] [id number] [place] [address]- 4382 Jun, [facility] [place] [facility] [address] [id number] [place] [address]- 3195 Jun, [facility] [place] [facility] [address] [id number] [place] [address]- 7662 May, [facility] [place] [facility] [address] [id number] [place] [address]- 3557 May, [facility] [place] [facility] [address] [id number] [place] May, [facility] [place] [facility] [address] [id number] [place] [address]- 2546 May, [facility] [address] [id number] [place] [address]- 0185 Apr, [facility] [address] [id number] [place] [address] 2546 Apr, [facility] [address] [id number] [place] [address]- 0930 Mar, [facility] [address] [id number] [place] [address]- 0640 Mar, [facility] [address] [id number] [place] [address]- 8696 Mar, [facility] [address] [facility] [address] [id number] [place] [address]- 8782 Mar, [facility] [address] [id number] [place] [address]- 8451 Mar, [facility] [address] [id number] [place] [address]- 3122 Mar, [facility] [address] [id number] [place] [address] Mar, [facility] [address] [facility] [address] [id number] [place] [address]- 6449 Mar, [facility] [address] [id number] [place] [address]- 4942 Mar, [facility] [address] [id number] [place] [address]- 3272 Feb, [facility] [place] [facility] [address] [id number] [place] [address]- 9519 Feb, [facility] [address] [id number] [place] [address]- 2546 Jan, [facility] [address] [id number] [place] [address]- 7411 Jan, [facility] [place] [facility] [address] [id number] [place] [address]- 5541 Jan, [facility] [place] [facility] [address] [id number] [place] [address]- 1340 Jan, [facility] [place] [facility] [address] [id number] [place] [address]- 8503 Jan, [facility] [place] [facility] [address] [id number] [place] [address]- 254 Dec, [facility] [place] [facility] [address] [id number] [place] [address]- 4606 Nov, [facility] [place] [facility] [address] [id number] [place] [address]- 6896 Nov, [facility] [place] [facility] [address] [id number] [place] [address]- 7321 Nov, [facility] [place] [facility] [address] [id number] [place] [address]- 5836 Oct, [facility] [place] [facility] [address] [id number] [place] [address]- 1449 Oct, [facility] [place] [facility] [address] [id number] [place] [address]- 4665 Sep, [facility] [place] [facility] [address] [id number] [place] [address]- 1007 Sep, [facility] [place] [facility] [address] [id number] [place] [address]- 6271 August, [facility] [place] [facility] [address] [id number] [place] [address]- 9605 August, [facility] [place] [facility] [address] [id number] [place] [address]- 4726 August, [facility] [place] [facility] [address] [id number] [place] [address]- 2546 August, [facility] [place] [facility] [address] [id number] [place] [address]- 6542 16 Jul, 2012 [facility] [address] [id number] [place] [address]- 4666 15 Jul, 2012 [facility] [address] [id number] [place] [address]- 6696 Jun, [facility] [address] [id number] [place] [address]- 9966 26 May, 2012 [facility] [address] [id number] [place] [address]- 3837 May, [facility] [address] [id number] [place] [address]- 7540 18 May, 2012 [facility] [address] [id number] [place] [address]- 5907 15 May, 2012 [facility] [address] [id number] [place] [address]- 5305 May, [facility] [address] [id number] [place] [address]- 5169 May, [facility] [address] [id number] [place] [address]- 4960 May, [facility] [address] [id number] [place] [address]- 7062 August, [facility] [address] [id number] [place] [address]- 9633 Jul, [facility] [address] [id number] [place] [address] 2549 Jul, [facility] [place] [facility] [address] [id number] [place] [address]- 2806 May, [facility] [address] [id number] [place] [address] 2546 May, [facility] [address] [id number] [place] [address]- 1617 Mar, [facility] [place] [address] [facility] [address] [id number] [address] Sep, [facility] [place] [address] [facility] [address] [id number] [address]- [address]36 Jul, [facility] [place] [address] [facility] [address] [id number] [address]- 3872 Mar, [facility] [place] [address] [facility] [address] [id number], [place] [address]- [address]90 Feb, [facility] [place] [address] [facility] [address] [id number], [place] [address]- [address] Feb, IMMUNIZATIONS No Known Immunizations SOCIAL HISTORY Never Assessed REASON FOR VISIT Lab (walk-in) PLAN OF CARE Activity Details Pending Test LIPID PANEL Pending Test CMP Pending Test MAGNESIUM SERUM Pending Test CBC Pending Test ESR/SED RATE VITAL SIGNS MEDICATIONS Unknown Medications RESULTS No Results PROCEDURES Procedure Date Ordered Result Body Site LIPID PANEL Mar 01, 2018 COMPREHEN METABOLIC PANEL Mar 01, 2018 COMPLETE CBC W/AUTO DIFF WBC Mar 01, 2018 ASSAY OF MAGNESIUM Mar 01, 2018 VENIPUNCT, ROUTINE* Mar 01, 2018 RBC SED RATE, AUTOMATED Mar 01, 2018 INSTRUCTIONS MEDICATIONS ADMINISTERED No Known Medications MEDICAL (GENERAL) HISTORY Type Description Date Medical History hypertension Medical History Diabetes Medical History Lung Cancer 2014, /chemo Medical History 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
--- OUTSIDE RECORDS SUMMARY | 2018-03-12 07:54 | XMS REPORT ---
Author Author AJYE RIGGS Organization [facility] Address [address] [place] [address] Care Team Providers Care Slimer Name Role Phone JAYE RIGGS Unavailable PROBLEMS Type Condition ICD9-CM Code CMA83-AK Code Onset Dates Condition Status SNOMED Code Problem Tinnitus of left ear H93.12 Active 9848236890209 Problem Type 2 diabetes mellitus with hyperglycemia E11.65 Active 294074296662489 Problem Tinnitus of both ears H93.13 Active 9819044638185 Problem Gastroesophageal reflux disease with esophagitis K21.0 Active 656003770 Problem Altered mental status R41.82 Active 261701901 Problem Observed sleep apnea G47.30 Active 72449809 Problem Type 2 diabetes mellitus with other diabetic neurological complication E11.49 Active 32724974 Problem Cerebrovascular accident (CVA) due to embolism of other cerebral artery I63.49 Active 670497310 Problem Type 2 diabetes mellitus with diabetic neuropathy, without long-term current use of insulin E11.40 Active 15485272 Problem Essential (primary) hypertension I10 Active 61614268 Problem Type 2 diabetes mellitus without complications E11.9 Active 187302865 Problem Elevated white blood cell count, unspecified D72.829 Active 639482051 Problem Neuropathy G62.9 Active 953103983 Problem Controlled type 2 diabetes mellitus without complication, without long -term current use of insulin E11.9 Active 475485883 Problem Atherosclerotic heart disease of [place] coronary artery without angina pectoris I25.10 Active 028896560527925 Problem Seasonal allergic rhinitis due to other allergic trigger J30.89 Active 266923606 Problem Type 2 diabetes mellitus with foot ulcer E11.621 Active 063594930 Problem Bilateral tinnitus H93.13 Active 3116321811908 ALLERGIES Substance Reaction Event Type Date Status Brilinta rash, nausea, vomiting Drug Allergy Feb, Active Plavix rash, nausea, vomiting Drug Allergy Feb, Active ENCOUNTERS Encounter Location Date Diagnosis [facility] [address] [facility] [id number] [place] [address] 61776- 3003 Mar, [place] [address] [place] [id number] [place] [address] 22473- 1584 13 Feb, 2018 Actinic keratoses L57.0 [place] [address] [place] [id number] [place] [address] 92411- 3595 09 Feb, 2018 Type 2 diabetes mellitus without complications E11.9 ; Tobacco abuse Z72.0 ; Tobacco abuse counseling Z71.6 and Atherosclerotic heart disease of [place] coronary artery without angina pectoris I25.10 [place] [id number] [place] [address] 74397- 5165 08 Feb, 2018 Type 2 diabetes mellitus without complications E11.9 ; Tobacco abuse Z72.0 ; Tobacco abuse counseling Z71.6 ; Atherosclerotic heart disease of [place] coronary artery without angina pectoris I25.10 ; Seborrheic keratoses L82.1 and Gastroesophageal reflux disease with esophagitis K21.0 [facility] [place] [address] [place] [id number] [place] [address] 46834 -2314 Jan, Abscess L02.91 [place] [address] [place] [id number] [place] [address] 32954- 1363 Jan, Neuropathy G62.9 [place] [address] [place] [id number] [place] [address] 52184- 4037 20 Dec, 2017 Neuropathy G62.9 ; Cerebrovascular accident (CVA) due to embolism of other cerebral artery I63.49 and Seasonal allergic rhinitis due to other allergic trigger J30.89 [facility] [place] [address] [place] [id number] [place] [address] 68878 -5455 10 Dec, 2017 Altered mental status R41.82 [place] [id number] [place] [address] 68912- 8193 16 Nov, 2017 Type 2 diabetes mellitus with diabetic neuropathy, without long-term current use of insulin E11.40 [place] [address] [place] [id number] [place] [address] 99365- 7108 Oct, Neuropathy G62.9 ; Type 2 diabetes mellitus with other diabetic neurological complication E11.49 ; Type 2 diabetes mellitus with hyperglycemia E11.65 ; Actinic keratoses L57.0 and Observed sleep apnea G47.30 [place] [address] [place] [id number]- 0564 Sep, Tinnitus of both ears H93.13 and Actinic keratitis, unspecified laterality H16.139 [facility] [address] [place] [id number]- 9203 August, Type 2 diabetes mellitus without complications E11.9 and Controlled type 2 diabetes mellitus without complication, without long-term current use of insulin E11.9 [place] [address] 20082- 3949 August, Seborrheic keratoses L82.1 and Tinnitus of left ear H93.12 [place] [address] 65949- 0263 Jul, Controlled type 2 diabetes mellitus without complication, without long-term current use of insulin E11.9 ; Seborrheic keratoses L82.1 ; Bilateral tinnitus H93.13 and Seasonal allergic rhinitis due to other allergic trigger J30.89 [facility] [address] [id number] May, Encounter for dental examination Z01.20 [facility] [address] [id number] Jan, Encounter for dental examination Z01.20 [place] [address] 59123- 0369 Jan, Type 2 diabetes mellitus without complications E11.9 and Acute non-recurrent maxillary sinusitis J01.00 [facility] [address] 69[address] -3537 Dec, Right ear impacted cerumen H61.21 and Acute suppurative otitis media of right ear without spontaneous rupture of tympanic membrane, recurrence not specified H66.001 [facility] [address] 52738- 3309 Nov, Type 2 diabetes mellitus without complications E11.9 and Neuropathy G62.9 [facility] [address] [place] [address] [id number] Oct, Encounter for dental examination Z01.20 [facility] [address] [place] [id number] [place] [address] [id number] Jun, Dental examination Z01.20 [facility] [address] [place] [id number] [place] [address] 19038- 2296 16 Jun, 2016 Atherosclerotic heart disease of [place] coronary artery without angina pectoris I25.10 [facility] [address] [place] [id number] [place] [address] 58541- 1646 15 Jun, 2016 Atherosclerotic heart disease of [place] coronary artery without angina pectoris I25.10 [facility] [address] [id number] [place] [address] 93211- 8376 Jun, Type 2 diabetes mellitus without complications E11.9 [facility] [address] [place] [id number] [place] [address] [id number] May, Encounter for dental examination Z01.20 [facility] [address] [place] [id number] [place] [address] [id number] Apr, Dental caries K02.9 [facility] [address] [place] [id number] [place] [address] [id number] Apr, Dental examination Z01.20 [facility] [address] [place] [id number] [place] [address] 53556- 8116 Dec, Type 2 diabetes mellitus without complications E11.9 ; termination clerk current use of insulin Z79.4 ; Essential (primary) hypertension I10 and Elevated white blood cell count, unspecified D72.829 [facility] [address] [place] [id number] [place] [address] [id number]- 4621 Jul, Diabetes mellitus without mention of complication, type II or unspecified type, not stated as uncontrolled 250.00 [place] [address] [place] [id number] [place] [address] 01719- 3027 Jul, [facility] [address] [place] [id number] [address] 4501 07 Jan, 2015 Encounter for immunization Z23 [facility] [address] [id number] Dec, Dental examination V72.2 [facility] [address] [place] [address] 31176- 7229 Nov, Cancer of lung, upper lobe 162.3 [facility] [address] [place] [id number] [place] [address] 43869- 9537 Sep, Lung cancer 162.9 ; CAD (coronary artery disease) 414.00 and Depression 311 [facility] [address] [place] [address] 08254- 6862 14 Jul, 2014 [facility] [address] [place] [id number] [place] [address] 89766- 1238 Jul, [facility] [address] [place] [id number] [place] [address] 60631- 0573 Jun, [facility] [address] [place] [address] 00352- 3328 Jun, [facility] [address] [place] [address] 59872- 0516 Mar, [facility] [address] [address]- 0904 Mar, [facility] [address] [address]- 1345 Jan, [facility] [address] [address]- 8721 Jan, [facility] [address] [place] [address] 62883- 9926 Jan, [facility] [address] [address]- 4315 Jan, [facility] [address] [place] [id number] [place] [address], [place] [address] 2546 Jan, [facility] [place] [facility] [address] [id number] [place] [address]- 8435 Jan, [facility] [place] [facility] [address] [id number] [place] [address]- 3656 Dec, [facility] [place] [facility] [address] [id number] [place] [address] 2546 Dec, [facility] [place] [facility] [address] [id number] [place] [address]- 8615 Oct, [facility] [place] [facility] [address] [id number] [place] [address]- 7014 Oct, [facility] [place] [facility] [address] [id number] [place] [address]- 5182 Sep, [facility] [place] [facility] [address] [id number] [place] [address]- 7806 Sep, [facility] [place] [facility] [address] [id number] [place] [address]- 8402 August, [facility] [place] [facility] [address] [id number] [place] [address]- 5385 August, [facility] [place] [facility] [address] [id number] [place] [address]- 0624 August, [facility] [place] [facility] [address] [id number] [place] [address]- 5882 August, [facility] [place] [facility] [address] [id number] [place] [address]- 3499 August, [facility] [place] [facility] [address] [id number] [place] [address]- 5859 August, [facility] [place] [facility] [address] [id number] [place] [address]- 5759 Jun, [facility] [place] [facility] [address] [id number] [place] [address]- 1756 Jun, [facility] [place] [facility] [address] [id number] [place] [address]- 0384 May, [facility] [place] [facility] [address] [id number] [place] 0119 May, [facility] [place] [facility] [address] [id number] [place] [address]- 4446 May, [facility] [place] [facility] [address] [id number] [place] [address]- 2186 May, [facility] [place] [facility] [address] [id number] [place] [address]- 4685 Apr, [facility] [place] [facility] [address] [id number] [place] [address]- 4273 Apr, [facility] [place] [facility] [address] [id number] [place] [address]- 4652 Mar, [facility] [place] [facility] [address] [id number] [place] [address]- 1231 Mar, [facility] [place] [facility] [address] [id number] [place] [address]- 1388 Mar, [facility] [place] [facility] [address] [id number] [place] [address]- 4462 Mar, [facility] [place] [facility] [address] [id number] [place] [address]- 1007 Mar, [facility] [place] [facility] [address] [id number], [place] [address]- 8789 Mar, [facility] [place] [facility] [address] [id number] [place] [address]- 3481 Mar, [facility] [place] [facility] [address] [id number] [place] 0325 Mar, [facility] [place] [facility] [address] [id number] [place] [address]- 0549 Mar, [facility] [place] [facility] [address] [id number] [place] [address]- 3433 Feb, [facility] [place] [facility] [address] [id number] [place] [address]- 2872 Feb, [facility] [place] [facility] [address] [id number] [place] [address]- 4566 Jan, [facility] [place] [facility] [address] [id number] [place] [address]- 4648 Jan, [facility] [place] [facility] [address] [id number] [place] [address]- 3506 Jan, [facility] [place] [facility] [address] [id number] [place] [address]- 8329 Jan, [facility] [place] [facility] [address] [id number] [place] [address]- 5181 Jan, [facility] [place] [facility] [address] [id number] [place] [address]- 3334 Dec, [facility] [place] [facility] [address] [id number] [place] [address]- 1958 Nov, [facility] [place] [facility] [address] [id number] [place] [address]- 2739 Nov, [facility] [place] [facility] [address] [id number] [place] [address]- 5768 Nov, [facility] [place] [facility] [address] [id number] [place] [address]- 3001 Oct, [facility] [place] [facility] [address] [id number] [place] [address]- 7709 Oct, [facility] [place] [facility] [address] [id number] [place] [address]- 4552 Sep, [facility] [place] [facility] [address] [id number] [place] [address]- 8556 Sep, [facility] [place] [facility] [address] [id number] [place] [address]- 5277 August, [facility] [place] [facility] [address] [id number] [place] [address]- 8956 17 Aug, 2012 [facility] [address] [id number] [place] [address]- 8893 August, [facility] [place] [facility] [address] [id number] [place] [address]- 2074 August, [facility] [address] [id number] [place] [address]- 7464 16 Jul, 2012 [facility] [address] [id number] [place] [address]- 3131 Jul, [facility] [address] [id number] [place] [address]- 2407 Jun, [facility] [address] [id number] [place] [address]- 3056 May, [facility] [address] [id number] [place] [address]- 5465 May, [facility] [address] [id number] [place] [address]- 0133 18 May, 2012 [facility] [address] [id number] [place] [address]- 8654 May, [facility] [address] [id number] [place] [address]- 4894 May, [facility] [address] [id number], [place] [address]- 6881 May, [facility] [address] [id number] [place] [address]- 7151 May, [facility] [place] [facility] [address] [id number] [place] [address]- 7543 August, [facility] [address] [id number] [place] [address]- 9575 23 Jul, 2011 [facility] [address] [id number], [place] [address]- 6766 Jul, [facility] [address], [place] [address] 2546 May, [facility] [address] [address] 2546 May, [facility] [address], [place] [address]- 6286 Mar, [facility] [address], [place] [address]- 9380 Sep, [facility] [address], [place] [address]- 8598 Jul, [facility] [address], [place] [address]- 5146 Mar, [facility] [id number], [place] [address]- 9401 Feb, [facility] [id number], [place] [address]- 5746 Feb, IMMUNIZATIONS No Known Immunizations SOCIAL HISTORY Never Assessed REASON FOR VISIT Anne Marie - Jalil CLARK PLAN OF CARE Activity Details Follow Up 4 Weeks Reason:cryo Future/Pending Procedure CRYOTHERAPY OF SKIN VITAL SIGNS Height 71 in 2018-03-05 Weight 230 lbs 2018-03-05 Temperature 97.9 degrees Fahrenheit 2018-03-05 Heart Rate 92 bpm 2018-03-05 Respiratory Rate 20 2018-03-05 Oximetry 97 % 2018-03-05 BMI 32.07 kg/m2 2018-03-05 Blood pressure systolic 132 mmHg 2018-03-05 Blood pressure diastolic 70 mmHg 2018-03-05 MEDICATIONS Medication Instructions Dosage Frequency Start Date End Date Duration Status Wellbutrin XL 300 mg 1 tablet 24h Dec, Active Fish Oil + D3 8628-9879 MG-UNIT Orally twice a day 1 capsule 12h Active MetFORMIN HCl ER 500 mg Orally 2 times a day 2 tablets 12h Nov, 30 day(s) Active Omeprazole 20 MG Orally Once a day 1 capsule 24h Active Lancets 1 Test 2 times per day DX: DM2 Oct, Active Singulair 10 mg Orally Once a day 1 tablet in the evening 24h Jul, 30 day(s) Active Nortriptyline HCl 25 MG Orally Once a day 1 capsule 24h Nov, 30 day(s) Active Aspir-81 81 MG Orally Once a day 1 tablet 24h Active Flonase 50 MCG/ACT Nasally Once a day 2 sprays in each nostril 24h Active Chantix 1 MG Orally Twice a day 1 tablet 12h Feb, August, 30 day(s) Active Multiple Vitamins 1 Tablet by Oral route 1 time per day Mar, Active Simethicone 80 mg Orally Four times a day 1 tablet after meals and at bedtime 6h Feb, Active Zyrtec-D Allergy & Congestion 5-120 MG Orally Once a day 1 tablet as needed 24h 20 Dec, 2017 May, 30 day(s) Active Lyrica 150 MG Orally 3 times a day 1 capsule 8h Sep, 28 days Active Atorvastatin Calcium 80 MG 1 tablet Active Magnesium 300 MG Orally Once a day 1 capsule with a meal 24h Active C-PAP Machine Active Albuterol Sulfate HFA 108 (90 Base) MCG/ACT Inhalation every 4 hrs 2 puffs as needed 4h Active potassium Oral Once a day 1 tablet (500 mg) 24h Active Chantix Starting Month Oneal 0.5 MG X 11 & 1 MG X 42 as directed Feb, Mar, 30 days Active Calcium 1000 + D 1000-800 MG-UNIT Active Blood Glucose Test Strip 1 as directed Jul, Active Lipitor 80 MG Orally Once a day 1 tablet 24h Active Oxygen 2 LPM Not-Taking RESULTS No Results PROCEDURES Procedure Date Ordered Result Body Site CRYOTHERAPY OF SKIN Mar 05, 2018 INSTRUCTIONS MEDICATIONS ADMINISTERED No Known Medications [...]
--- OUTSIDE RECORDS SUMMARY | 2018-03-12 07:54 | XMS REPORT ---
Author Author JAYE RIGGS Organization [facility] Address [address] [place] [address] Care Team Providers Care Printing Technician Name Role Phone JAYE RIGGS Unavailable PROBLEMS Type Condition ICD9-CM Code YDI40-VA Code Onset Dates Condition Status SNOMED Code Problem Tinnitus of left ear H93.12 Active 5952760251856 Problem Type 2 diabetes mellitus with hyperglycemia E11.65 Active 896415304860243 Problem Tinnitus of both ears H93.13 Active 3314642369355 Problem Gastroesophageal reflux disease with esophagitis K21.0 Active 034025218 Problem Altered mental status R41.82 Active 184402300 Problem Observed sleep apnea G47.30 Active 17147681 Problem Type 2 diabetes mellitus with other diabetic neurological complication E11.49 Active 44676121 Problem Cerebrovascular accident (CVA) due to embolism of other cerebral artery I63.49 Active 433886412 Problem Type 2 diabetes mellitus with diabetic neuropathy, without long-term current use of insulin E11.40 Active 11145500 Problem Essential (primary) hypertension I10 Active 85301343 Problem Type 2 diabetes mellitus without complications E11.9 Active 729468510 Problem Elevated white blood cell count, unspecified D72.829 Active 890619022 Problem Neuropathy G62.9 Active 774479459 Problem Controlled type 2 diabetes mellitus without complication, without long -term current use of insulin E11.9 Active 341268023 Problem Atherosclerotic heart disease of [place] coronary artery without angina pectoris I25.10 Active 298590160668472 Problem Seasonal allergic rhinitis due to other allergic trigger J30.89 Active 883571846 Problem Type 2 diabetes mellitus with foot ulcer E11.621 Active 676185103 Problem Bilateral tinnitus H93.13 Active 5512599150329 ALLERGIES Substance Reaction Event Type Date Status Brilinta rash, nausea, vomiting Drug Allergy Feb, Active Plavix rash, nausea, vomiting Drug Allergy Feb, Active ENCOUNTERS Encounter Location Date Diagnosis [facility] [address] [facility] [id number] [place] [address] 33060- 0691 09 Feb, 2018 Type 2 diabetes mellitus without complications E11.9 ; Tobacco abuse Z72.0 ; Tobacco abuse counseling Z71.6 and Atherosclerotic heart disease of [place] coronary artery without angina pectoris I25.10 [place] [address] [place] [id number] [place] [address] 47398- 9838 08 Feb, 2018 Type 2 diabetes mellitus without complications E11.9 ; Tobacco abuse Z72.0 ; Tobacco abuse counseling Z71.6 ; Atherosclerotic heart disease of [place] coronary artery without angina pectoris I25.10 ; Seborrheic keratoses L82.1 and Gastroesophageal reflux disease with esophagitis K21.0 [facility] [place] [address] [address] Jan, Abscess L02.91 [place] [address] [address]38- 7121 Jan, Neuropathy G62.9 [place] [address] 8[address]23- 0750 20 Dec, 2017 Neuropathy G62.9 ; Cerebrovascular accident (CVA) due to embolism of other cerebral artery I63.49 and Seasonal allergic rhinitis due to other allergic trigger J30.89 [facility] [place] [address] [place] [id number] [place] [address] 59514 -3744 10 Dec, 2017 Altered mental status R41.82 [place] [address] [place] [id number] [place] [address] 34112- 7772 16 Nov, 2017 Type 2 diabetes mellitus with diabetic neuropathy, without long-term current use of insulin E11.40 [place] [address] [place] [id number] [place] [address] 53630- 0751 17 Oct, 2017 Neuropathy G62.9 ; Type 2 diabetes mellitus with other diabetic neurological complication E11.49 ; Type 2 diabetes mellitus with hyperglycemia E11.65 ; Actinic keratoses L57.0 and Observed sleep apnea G47.30 [place] [address] [place] [id number] [place] [address] 93979- 7006 Sep, Tinnitus of both ears H93.13 and Actinic keratitis, unspecified laterality H16.139 [facility] [id number] [place] [address] 68921- 8887 August, Type 2 diabetes mellitus without complications E11.9 and Controlled type 2 diabetes mellitus without complication, without long-term current use of insulin E11.9 [facility] [address] [place] [id number] [place] [address] 07337- 6754 August, Seborrheic keratoses L82.1 and Tinnitus of left ear H93.12 [facility] [address] [place] [id number] [place] [address] 97894- 6413 Jul, Controlled type 2 diabetes mellitus without complication, without long-term current use of insulin E11.9 ; Seborrheic keratoses L82.1 ; Bilateral tinnitus H93.13 and Seasonal allergic rhinitis due to other allergic trigger J30.89 [facility] [address] [place] [id number] [place] [address] [id number] May, Encounter for dental examination Z01.20 [facility] [address] [place] [id number] [place] [address] [id number] Jan, Encounter for dental examination Z01.20 [facility] [address] [place] [id number] [place] [address] 96784- 6303 Jan, Type 2 diabetes mellitus without complications E11.9 and Acute non-recurrent maxillary sinusitis J01.00 [facility] [address] [place] [id number] [place] [address] 43231 -9422 Dec, Right ear impacted cerumen H61.21 and Acute suppurative otitis media of right ear without spontaneous rupture of tympanic membrane, recurrence not specified H66.001 [facility] [address] [place] [id number] [place] [address] 93858- 6228 Nov, Type 2 diabetes mellitus without complications E11.9 and Neuropathy G62.9 [facility] [id number] [place] [address] [id number] Oct, Encounter for dental examination Z01.20 [facility] [address] [place] [address] [id number] [place] [id number] 28 Jun, 2016 Dental examination Z01.20 [facility] [address] [place] [id number] [place] [address] 30772- 1476 16 Jun, 2016 Atherosclerotic heart disease of [place] coronary artery without angina pectoris I25.10 [facility] [address] [place] [id number] [place] [address] 47811- 2456 15 Jun, 2016 Atherosclerotic heart disease of [place] coronary artery without angina pectoris I25.10 [facility] [address] [place] [id number] [place] [address] [id number]- 0276 13 Jun, 2016 Type 2 diabetes mellitus without complications E11.9 [facility] [address] [id number] May, Encounter for dental examination Z01.20 [facility] [address] [id number] Apr, Dental caries K02.9 [facility] [address] [id number] 03 Apr, 2016 Dental examination Z01.20 [facility] [address] [place] [id number] [place] [address] 173200- 1186 08 Dec, 2015 Type 2 diabetes mellitus without complications E11.9 ; intermission coordinator current use of insulin Z79.4 ; Essential (primary) hypertension I10 and Elevated white blood cell count, unspecified D72.829 [facility] [address] [place] [id number] [place] [address] 82799- 6459 Jul, Diabetes mellitus without mention of complication, type II or unspecified type, not stated as uncontrolled 250.00 [place] [address] [place] [id number] [place] [address] 23494- 4975 Jul, [place] [address] 043555- 7634 Jan, Encounter for immunization Z23 [facility] [address] [place] [id number] [place] [address] [id number] Dec, Dental examination V72.2 [facility] [address] [facility] [id number] [address] Nov, Cancer of lung, upper lobe 162.3 [facility] [address] [place] [address] 405982- 2068 Sep, Lung cancer 162.9 ; CAD (coronary artery disease) 414.00 and Depression 311 [facility] [address] [facility] [id number] [place] [address] 07386- 0040 Jul, [facility] [address] [facility] [id number] [place] [address] 21867- 9074 Jul, [facility] [address] [place] [id number] [place] [address], [place] [address]- 6996 Jun, [facility] [address] [place] [id number] [place] [address] 60593- 6611 Jun, [facility] [address] [place] [id number] [place] [address] 62510- 9139 Mar, [facility] [address] [address]- 1681 Mar, [facility] [address] [place] [address] 74877- 6669 Jan, [facility] [address] [id number] [address]- 6097 Jan, [facility] [address] [id number] [address] 2612 Jan, [facility] [address] [id number] [address]- 9164 Jan, [facility] [address] [place] [id number] [place] [address] 166745- 3090 Jan, [facility] [address] [facility] [id number] 8911 Jan, [facility] [address] [place] [address] 96840- 8972 Dec, [facility] [place] [facility] [address] [id number] [place] [address]- 2504 Dec, [facility] [place] [facility] [address] [id number] [place] [address]- 9197 Oct, [facility] [place] [facility] [address] [id number] [place] [address]- 9235 Oct, [facility] [place] [facility] [address] [id number] [place] [address]- 7101 Sep, [facility] [place] [facility] [address] [id number] [place] [address]- 9736 Sep, [facility] [place] [facility] [address] [id number] [place] [address]- 5959 August, [facility] [place] [facility] [address] [id number] [place] [address]- 7481 August, [facility] [place] [facility] [address] [id number] [place] [address]- 0625 August, [facility] [place] [facility] [address] [id number] [place] [address]- 2802 August, [facility] [place] [facility] [address] [id number] [place] [address]- 4977 August, [facility] [place] [facility] [address] [id number] [place] [address]- 0364 August, [facility] [place] [facility] [address] [id number] [place] [address]- 7492 Jun, [facility] [place] [facility] [address] [id number] [place] [address]- 6978 Jun, [facility] [place] [facility] [address] [id number] [place] [address]- 0116 May, [facility] [place] [facility] [address] [id number] [place] [address]- 5976 May, [facility] [place] [facility] [address] [id number] [place] [address]- 2546 May, [facility] [address] [id number] [place] [address]- 3856 May, [facility] [address] [id number] [place] [address]- 2546 Apr, [facility] [address] [id number] [place] [address] 2546 Apr, [facility] [address] [id number] [place] [address]- 9941 Mar, [facility] [address] [id number] [place] [address]- 3822 Mar, [facility] [address] [id number] [place] [address]- 5605 Mar, [facility] [address] [id number] [place] [address]- 2299 Mar, [facility] [address] [id number] [place] [address]- 0100 Mar, [facility] [address] [id number] [place] [address]- 6959 Mar, [facility] [address] [facility] [id number] [place] [address]- 4132 Mar, [facility] [address] [id number] [place] [address]- 2546 Mar, [facility] [address] [id number] [place] [address]- 2546 Mar, [facility] [place] [facility] [address] [id number] [place] [address]- 2546 Feb, [facility] [place] [facility] [address] [id number] [place] [address]- 2546 Feb, [facility] [place] [facility] [address] [id number] [place] [address]- 7122 Jan, [facility] [place] [facility] [address] [id number] [place] [address]- 1012 Jan, [facility] [place] [facility] [address] [id number] [place] [address]- 6613 Jan, [facility] [place] [facility] [address] [id number] [place] [address]- 2894 Jan, [facility] [place] [facility] [address] [id number] [place] [address]- 7377 Jan, [facility] [place] [facility] [address] [id number] [place] [address]- 2160 Dec, [facility] [place] [facility] [address] [id number] [place] [address]- 6778 Nov, [facility] [place] [facility] [address] [id number] [place] [address]- 5387 Nov, [facility] [place] [facility] [address] [id number] [place] [address]- 0302 Nov, [facility] [place] [facility] [address] [id number] [place] [address]- 1192 Oct, [facility] [place] [facility] [address] [id number] [place] [address]- 2984 Oct, [facility] [place] [facility] [address] [id number] [place] [address]- 0880 Sep, [facility] [place] [facility] [address] [id number], [place] [address]- 0127 Sep, [facility] [place] [facility] [address] [id number] [place] [address]- 3371 August, [facility] [place] [facility] [address] [id number] [place] [address]- 1862 August, [facility] [place] [facility] [address] [id number] [place] [address]- 9339 August, [facility] [place] [facility] [address] [id number] [place] [address]- 6503 August, [facility] [address] [id number] [place] [address]- 6146 16 Jul, 2012 [facility] [address] [id number] [place] 3126 15 Jul, 2012 [facility] [address] [id number] [place] [address]- 5884 Jun, [facility] [place] [facility] [address] [id number] [place] [address]- 5878 May, [facility] [address] [id number] [place] [address]- 0308 May, [facility] [address] [id number] [place] [address]- 0103 18 May, 2012 [facility] [address] [id number] [place] [address]- 2491 15 May, 2012 [facility] [address] [id number] [place] [address]- 9186 May, [facility] [address] [id number] [place] [address]- 0719 May, [facility] [address] [id number] [place] [address]- 2496 May, [facility] [address] [id number] [place] [address]- 1987 August, [facility] [address] [id number] [place] [address]- 2545 Jul, [facility] [place] [facility] [address] [id number] [place] [address]- 5683 Jul, [facility] [place] [facility] [address] [id number] [place] 5066 May, [facility] [place] [facility] [address] [facility] [id number] [place] [address]- 7349 May, [facility] [address] [facility] [id number], [place] [address]- 2166 Mar, [facility] [address] [address]- 4558 Sep, [facility] [address] [facility] [id number], [place] [address]- 4536 Jul, [facility] [address] [address]- 3341 Mar, [facility] [address] [facility] [id number], [place] [address]- 3087 Feb, [facility] [address] 9563 Feb, IMMUNIZATIONS No Known Immunizations SOCIAL HISTORY Never Assessed REASON FOR VISIT smoking cessation - wilmer CLARK, PT reports he has been waking up bloated for the last few weeks and recently felt nausea. -wilmer CLARK PLAN OF CARE VITAL SIGNS Height 71 in 2018-02-28 Weight 227 lbs 2018-02-28 Temperature 97.7 degrees Fahrenheit 2018-02-28 Heart Rate 86 bpm 2018-02-28 Respiratory Rate 20 2018-02-28 Oximetry on room air:98 % 2018-02-28 BMI 31.66 kg/m2 2018-02-28 Blood pressure systolic 128 mmHg 2018-02-28 Blood pressure diastolic 72 mmHg 2018-02-28 MEDICATIONS Medication Instructions Dosage Frequency Start Date End Date Duration Status Blood Glucose Test Strip 1 as directed Jul, Active Aspir-81 81 MG Orally Once a day 1 tablet 24h Active potassium Oral Once a day 1 tablet (500 mg) 24h Active Omeprazole 20 MG Orally Once a day 1 capsule 24h Active Simethicone 80 mg Orally Four times a day 1 tablet after meals and at bedtime 6h Feb, Active Albuterol Sulfate HFA 108 (90 Base) MCG/ACT Inhalation every 4 hrs 2 puffs as needed 4h Active Wellbutrin XL 300 mg 1 tablet 24h Dec, Active Lancets 1 Test 2 times per day DX: DM2 Oct, Active Fish Oil + D3 2401-5752 MG-UNIT Orally twice a day 1 capsule 12h Active Atorvastatin Calcium 80 MG 1 tablet Active Chantix 1 MG Orally Twice a day 1 tablet 12h Feb, August, 30 day(s) Active Oxygen 2 LPM Not-Taking Singulair 10 mg Orally Once a day 1 tablet in the evening 24h Jul, 30 day(s) Active Nortriptyline HCl 25 MG Orally Once a day 1 capsule 24h Nov, 30 day(s) Active MetFORMIN HCl ER 500 mg Orally 2 times a day 2 tablets 12h Nov, 30 day(s) Active Chantix Starting Month Oneal 0.5 MG X 11 & 1 MG X 42 as directed Feb, Mar, 30 days Active Lyrica 150 MG Orally 3 times a day 1 capsule 8h Sep, 28 days Active Magnesium 300 MG Orally Once a day 1 capsule with a meal 24h Active Flonase 50 MCG/ACT Nasally Once a day 2 sprays in each nostril 24h Active C-PAP Machine Active Lipitor 80 MG Orally Once a day 1 tablet 24h Active Calcium 1000 + D 1000-800 MG-UNIT Active Multiple Vitamins 1 Tablet by Oral route 1 time per day Mar, Active Zyrtec-D Allergy & Congestion 5-120 MG Orally Once a day 1 tablet as needed 24h 20 Dec, 2017 17 May, 2018 30 day(s) Active RESULTS Name Result Date Reference Range A1C (IN HOUSE) 2018-02-28 A1C IN HOUSE 6.5 4.3 - 5.6 % Previous A1c 6.6 Lot [id number] Exp date 06/2019 H PYLORI (IN HOUSE) 2018-02-28 H. PYLORI neg Control pos Lot # [id number] Exp date 09/21/18 PROCEDURES Procedure Date Ordered Result Body Site GLYCATED HEMOGLOBIN TEST Feb 28, 2018 IMMUNOASSAY,INFECTIOUS AGENT Feb 28, 2018 INSTRUCTIONS MEDICATIONS ADMINISTERED No Known Medications [...]
--- OUTSIDE RECORDS SUMMARY | 2018-03-12 07:55 | XMS REPORT ---
Author Author JAYE RIGGS Organization [facility] Address [address] [place] [address] Care Team Providers Care Engineering Technology Instructor Name Role Phone JAYE RIGGS Unavailable PROBLEMS Type Condition ICD9-CM Code QXA52-EH Code Onset Dates Condition Status SNOMED Code Problem Bilateral tinnitus H93.13 Active 4759174605899 Problem Tinnitus of both ears H93.13 Active 2431494760785 Problem Tinnitus of left ear H93.12 Active 7214836008584 Problem Altered mental status R41.82 Active 076555071 Problem Cerebrovascular accident (CVA) due to embolism of other cerebral artery I63.49 Active 524197197 Problem Type 2 diabetes mellitus with other diabetic neurological complication E11.49 Active 21011162 Problem Type 2 diabetes mellitus with hyperglycemia E11.65 Active 246348869326067 Problem Type 2 diabetes mellitus with diabetic neuropathy, without long-term current use of insulin E11.40 Active 62078457 Problem Observed sleep apnea G47.30 Active 05169210 Problem Elevated white blood cell count, unspecified D72.829 Active 500779756 Problem Essential (primary) hypertension I10 Active 32908323 Problem CAD (coronary artery disease) 414.00 Active 07920778 Problem Type 2 diabetes mellitus with foot ulcer E11.621 Active 192711605 Problem Neuropathy G62.9 Active 101523047 Problem Type 2 diabetes mellitus without complications E11.9 Active 548821486 Problem Controlled type 2 diabetes mellitus without complication, without long -term current use of insulin E11.9 Active 280679116 Problem Atherosclerotic heart disease of [place] coronary artery without angina pectoris I25.10 Active 920803576001802 Problem Seasonal allergic rhinitis due to other allergic trigger J30.89 Active 056004475 ALLERGIES No Information ENCOUNTERS Encounter Location Date Diagnosis [facility] [address] [id number] [address] Jan, Neuropathy G62.9 [facility] [address] [address] 20 Dec, 2017 Neuropathy G62.9 ; Cerebrovascular accident (CVA) due to embolism of other cerebral artery I63.49 and Seasonal allergic rhinitis due to other allergic trigger J30.89 [facility] [address] [address] 10 Dec, 2017 Altered mental status R41.82 [facility] [address] [address] 16 Nov, 2017 Type 2 diabetes mellitus with diabetic neuropathy, without long-term current use of insulin E11.40 [place] [address] [address] 17 Oct, 2017 Neuropathy G62.9 ; Type 2 diabetes mellitus with other diabetic neurological complication E11.49 ; Type 2 diabetes mellitus with hyperglycemia E11.65 ; Actinic keratoses L57.0 and Observed sleep apnea G47.30 [facility] [address] [address] Sep, Tinnitus of both ears H93.13 and Actinic keratitis, unspecified laterality H16.139 [place] [address] [address] August, Type 2 diabetes mellitus without complications E11.9 and Controlled type 2 diabetes mellitus without complication, without long-term current use of insulin E11.9 [place] [address] [address] 15 Aug, 2017 Seborrheic keratoses L82.1 and Tinnitus of left ear H93.12 [place] [address] [address] Jul, Controlled type 2 diabetes mellitus without complication, without long-term current use of insulin E11.9 ; Seborrheic keratoses L82.1 ; Bilateral tinnitus H93.13 and Seasonal allergic rhinitis due to other allergic trigger J30.89 [facility] [address] [id number] May, Encounter for dental examination Z01.20 [facility] [address] [place] [address] [id number] Jan, Encounter for dental examination Z01.20 [facility] [address] [place] [id number] [place] [address]- [address] Jan, Type 2 diabetes mellitus without complications E11.9 and Acute non-recurrent maxillary sinusitis J01.00 [facility] [address] [id number] [place] [address] Dec, Right ear impacted cerumen H61.21 and Acute suppurative otitis media of right ear without spontaneous rupture of tympanic membrane, recurrence not specified H66.001 [facility] [address] [place] [id number] [place] [address] 152749- 1206 Nov, Type 2 diabetes mellitus without complications E11.9 and Neuropathy G62.9 [facility] [address] [place] [id number] [place] [address] [id number] Oct, Encounter for dental examination Z01.20 [facility] [address] [place] [id number] [place] [address] [id number] Jun, Dental examination Z01.20 [facility] [address] [address] [id number] [place] [address]- 359[address] 16 Jun, 2016 Atherosclerotic heart disease of [place] coronary artery without angina pectoris I25.10 [facility] [address] [place] [id number] [place] [address] [id number]- [address]32 Jun, Atherosclerotic heart disease of [place] coronary artery without angina pectoris I25.10 [facility] [address] [place] [address]- 8[address] Jun, Type 2 diabetes mellitus without complications E11.9 [facility] [address] [place] [id number] [place] [address] [id number] May, Encounter for dental examination Z01.20 [facility] [address] [place] [address] [id number] Apr, Dental caries K02.9 [facility] [address] [place] [address] [id number] Apr, Dental examination Z01.20 [place] [address] [address] 08 Dec, 2015 Type 2 diabetes mellitus without complications E11.9 ; senior care current use of insulin Z79.4 ; Essential (primary) hypertension I10 and Elevated white blood cell count, unspecified D72.829 [place] [address] [place] [id number] [place] [address] Jul, Diabetes mellitus without mention of complication, type II or unspecified type, not stated as uncontrolled 250.[address] [address] Jul, [address] [address] Jan, Encounter for immunization Z23 [facility] [address] [id number] Dec, Dental examination V72.2 [place] [id number] [place] [address]- [address] Nov, Cancer of lung, upper lobe 162.3 [place] [id number] [place] [address]- 4[address] Sep, Lung cancer 162.9 ; CAD (coronary artery disease) 414.00 and Depression 311 [place] [address] [place] [id number] [place] [address] Jul, [place] [address] [id number]- [address] Jul, [place] [address] [address] Jun, [place] [address] [place] [id number] [place] [address] Jun, [address] [address] Mar, [facility] [place] [facility] [address] [id number] [place] [address] Mar, [facility] [place] [facility] [address] [id number] [place] [address] Jan, [facility] [place] [facility] [address] [id number] [place] [address] Jan, [facility] [place] [facility] [address] [id number] [place] [address]- [address] Jan, [facility] [place] [facility] [address] [id number] [place] [address] Jan, [facility] [place] [facility] [address] [id number] [place] [address] 6[address] Jan, [facility] [place] [facility] [address] [id number] [place] [address] Jan, [facility] [place] [facility] [address] [id number] [place] [address]- 70[address] Dec, [facility] [place] [facility] [address] [id number] [place] [address]- 9[address] Dec, [facility] [place] [facility] [address] [id number] [place] [address]- [address] Oct, [facility] [place] [facility] [address] [id number] [place] [address] Oct, [facility] [place] [facility] [address] [id number] [place] [address] Sep, [facility] [place] [facility] [address] [id number] [place] [address]- 24[address] Sep, [facility] [place] [facility] [address] [id number] [place] [address]- 0[address] August, [facility] [place] [facility] [address] [id number] [place] [address]- 95[address] August, [facility] [place] [facility] [address] [id number] [place] [address]- 2120 August, [facility] [place] [facility] [address] [id number] [place] [address]- 5[address] August, [facility] [place] [facility] [address] [id number] [place] [address]- 34[address] August, [facility] [place] [facility] [address] [id number] [place] [address]- [address] August, [facility] [place] [facility] [address] [id number] [place] [address]- 1668 Jun, [facility] [place] [facility] [address] [id number] [place] [address]- 235[address] Jun, [facility] [place] [facility] [address] [id number] [place] [address]- 8313 May, [facility] [place] [facility] [address] [id number] [place] [address]- 2583 May, [facility] [place] [facility] [address] [id number] [place] [address]- 5474 May, [facility] [place] [facility] [address] [id number] [place] [address]- 6115 May, [facility] [place] [facility] [address] [id number] [place] [address]- 7110 Apr, [facility] [place] [facility] [address] [id number] [place] [address] 9008 Apr, [facility] [place] [facility] [address] [id number] [place] [address] Mar, [facility] [place] [facility] [address] [id number] [place] [address]- [address] Mar, [facility] [place] [facility] [address] [id number] [place] [address]- 9238 Mar, [facility] [place] [facility] [address] [id number] [place] [address]- 254 Mar, [facility] [place] [facility] [address] [id number] [place] [address]- 6168 Mar, [facility] [place] [facility] [address] [id number] [place] [address]- 4120 Mar, [facility] [place] [facility] [address] [id number] [place] [address]- 2547 Mar, [facility] [place] [facility] [address] [id number] [place] [address]- 1630 Mar, [facility] [place] [facility] [address] [id number] [place] [address]- 7761 Mar, [facility] [place] [facility] [address] [id number] [place] [address]- 6582 Feb, [facility] [place] [facility] [address] [id number] [place] [address]- 1297 Feb, [facility] [place] [facility] [address] [id number] [place] [address]- 4683 Jan, [facility] [place] [facility] [address] [id number] [place] [address]- 6730 Jan, [facility] [place] [facility] [address] [id number] [place] [address]- 8708 Jan, [facility] [place] [facility] [address] [id number] [place] [address]- 69[address] Jan, [facility] [place] [facility] [address] [id number] [place] [address]- 0[address] Jan, [facility] [place] [facility] [address] [id number] [place] [address] 2540 Dec, [facility] [place] [facility] [address] [id number] [place] [address] 2547 Nov, [facility] [place] [facility] [address] [id number] [place] [address] 2547 Nov, [facility] [place] [facility] [address] [id number] [place] [address]- 2546 Nov, [facility] [address] [id number] [place] [address]- 1859 Oct, [facility] [address] [id number] [place] [address]- 6496 Oct, [facility] [address] [id number] [place] [address]- 8411 Sep, [facility] [address] [id number] [place] [address]- 0836 Sep, [facility] [address] [id number] [place] [address]- 7251 August, [facility] [address] [id number] [place] [address]- 7646 August, [facility] [address] [id number] [place] [address]- 1283 August, [facility] [address] [id number] [place] [address]- 2332 August, [facility] [address] [id number] [place] [address]- 3346 Jul, [facility] [address] [id number] [place] [address]- 6061 Jul, [facility] [address] [id number] [place] [address]- 2547 Jun, [facility] [address] [id number] [place] [address]- 4826 May, [facility] [place] [facility] [address] [id number] [place] [address]- 6756 May, [facility] [address] [id number] [place] [address]- 2546 18 May, 2012 [facility] [address] [id number] [place] [address]- 6898 15 May, 2012 [facility] [address] [id number] [place] [address]- 33[address] May, [facility] [address] [id number] [place] [address]- [address] May, [facility] [address] [address]- [address] May, [facility] [address] [address]- [address] August, [facility] [address] [address]- 4574 Jul, [facility] [address] [place] [address]- [address]65 Jul, [facility] [address] [address]- 7[address] May, [facility] [address] [address]- 4[address] May, [facility] [address] [address]- [address] Mar, [facility] [address] [address]- [address] Sep, [facility] [address] [address]- [address] Jul, [facility] [address] [address]- 25[address] Mar, [facility] [address] [address]- [address] Feb, [facility] [address] [address]- [address] Feb, IMMUNIZATIONS No Known Immunizations SOCIAL HISTORY Never Assessed REASON FOR VISIT Controlled Med Refill PLAN OF CARE VITAL SIGNS MEDICATIONS Medication Instructions Dosage Frequency Start Date End Date Duration Status Lyrica 150 MG Orally 3 times a day 1 capsule 8h Sep, 28 days Active RESULTS No Results PROCEDURES No Known procedures INSTRUCTIONS MEDICATIONS ADMINISTERED No Known Medications MEDICAL (GENERAL) HISTORY Type Description Date Medical History hypertension Medical History Diabetes Medical History Lung Cancer 2014, /chemo Medical History 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
--- OUTSIDE RECORDS SUMMARY | 2018-03-12 07:55 | XMS REPORT ---
Author Author HERSON GARZA [facility] Address [address] [place] [address] Care Team Providers Care Crm Coordinator Name Role Phone HERSON GARZA Unavailable PROBLEMS Type Condition ICD9-CM Code FGH49-TA Code Onset Dates Condition Status SNOMED Code Problem Bilateral tinnitus H93.13 Active 1192603549069 Problem Tinnitus of both ears H93.13 Active 5968653573408 Problem Tinnitus of left ear H93.12 Active 2342161677726 Problem Altered mental status R41.82 Active 388242165 Problem Cerebrovascular accident (CVA) due to embolism of other cerebral artery I63.49 Active 011039112 Problem Type 2 diabetes mellitus with other diabetic neurological complication E11.49 Active 88990764 Problem Type 2 diabetes mellitus with hyperglycemia E11.65 Active 601986275775120 Problem Type 2 diabetes mellitus with diabetic neuropathy, without long-term current use of insulin E11.40 Active 02377233 Problem Observed sleep apnea G47.30 Active 59830525 Problem Elevated white blood cell count, unspecified D72.829 Active 104135700 Problem Essential (primary) hypertension I10 Active 59616106 Problem CAD (coronary artery disease) 414.00 Active 41992604 Problem Type 2 diabetes mellitus with foot ulcer E11.621 Active 893587922 Problem Neuropathy G62.9 Active 672722867 Problem Type 2 diabetes mellitus without complications E11.9 Active 702683885 Problem Controlled type 2 diabetes mellitus without complication, without long -term current use of insulin E11.9 Active 862959527 Problem Atherosclerotic heart disease of [place] coronary artery without angina pectoris I25.10 Active 196546357109211 Problem Seasonal allergic rhinitis due to other allergic trigger J30.89 Active 036830726 ALLERGIES Substance Reaction Event Type Date Status Brilinta rash, nausea, vomiting Drug Allergy Jan, Active Plavix rash, nausea, vomiting Drug Allergy Jan, Active ENCOUNTERS Encounter Location Date Diagnosis [facility] [id number] [place] [address] 27 Jan, 2018 Abscess L02.91 [place] [address] [address] 23 Jan, 2018 Neuropathy G62.9 [place] [address] [address] 20 Dec, 2017 Neuropathy G62.9 ; Cerebrovascular accident (CVA) due to embolism of other cerebral artery I63.49 and Seasonal allergic rhinitis due to other allergic trigger J30.89 [facility] [address] [address] 10 Dec, 2017 Altered mental status R41.82 [place] [address] [address] 16 Nov, 2017 Type 2 diabetes mellitus with diabetic neuropathy, without long-term current use of insulin E11.[address] [address] Oct, Neuropathy G62.9 ; Type 2 diabetes mellitus with other diabetic neurological complication E11.49 ; Type 2 diabetes mellitus with hyperglycemia E11.65 ; Actinic keratoses L57.0 and Observed sleep apnea G47.[address] [address] Sep, Tinnitus of both ears H93.13 and Actinic keratitis, unspecified laterality H16.139 [place] [id number] [place] [address] August, Type 2 diabetes mellitus without complications E11.9 and Controlled type 2 diabetes mellitus without complication, without long-term current use of insulin E11.[address] [address] August, Seborrheic keratoses L82.1 and Tinnitus of left ear H93.[address] [address] Jul, Controlled type 2 diabetes mellitus without complication, without long-term current use of insulin E11.9 ; Seborrheic keratoses L82.1 ; Bilateral tinnitus H93.13 and Seasonal allergic rhinitis due to other allergic trigger J30.89 [facility] [address] [place] [phone] May, Encounter for dental examination Z01.20 [facility] [id number] [place] [address] [phone] Jan, Encounter for dental examination Z01.20 [facility] [id number] [place] [address]- [address]600 Jan, Type 2 diabetes mellitus without complications E11.9 and Acute non-recurrent maxillary sinusitis J01.00 [facility] [id number] [place] [address] [phone] Dec, Right ear impacted cerumen H61.21 and Acute suppurative otitis media of right ear without spontaneous rupture of tympanic membrane, recurrence not specified H66.001 [facility] [id number] [place] [address]66- 7690 Nov, Type 2 diabetes mellitus without complications E11.9 and Neuropathy G62.9 [facility] [address] [place] [address] [phone] Oct, Encounter for dental examination Z01.20 [facility] [address] [place] [address] [id number] Jun, Dental examination Z01.20 [facility] [id number] [place] [address]60- 0181 16 Jun, 2016 Atherosclerotic heart disease of [place] coronary artery without angina pectoris I25.10 [facility] [address] [address]- [address] 15 Jun, 2016 Atherosclerotic heart disease of [place] coronary artery without angina pectoris I25.10 [facility] [id number] [place] [address] 94887- 9367 Jun, Type 2 diabetes mellitus without complications E11.9 [facility] [id number] [id number] May, Encounter for dental examination Z01.20 [facility] [id number] [place] [address] [phone] Apr, Dental caries K02.9 [facility] [id number] [place] [address] [phone] Apr, Dental examination Z01.20 [facility] [id number] [place] [address] 09861- 9176 08 Dec, 2015 Type 2 diabetes mellitus without complications E11.9 ; 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 ; Essential (primary) hypertension I10 and Elevated white blood cell count, unspecified D72.829 [facility] [id number] [place] [address] [phone] 2715 29 Jul, 2015 Diabetes mellitus without mention of complication, type II or unspecified type, not stated as uncontrolled 250.00 [facility] [id number] [place] [address] 95249- 9310 Jul, [facility] [address] [address]- [address] Jan, Encounter for immunization Z23 [facility] [address] [place] [address] [id number] Dec, Dental examination V72.2 [facility] [id number] [place] [address] [phone] Nov, Cancer of lung, upper lobe 162.3 [facility] [id number] [place] [address] 114158- 2753 Sep, Lung cancer 162.9 ; CAD (coronary artery disease) 414.00 and Depression 311 [facility] [id number] [place] [address] [phone] Jul, [facility] [id number] [place] [address] 22576- 3045 Jul, [facility] [place] [facility] [address] [id number] [place] [address] Jun, [facility] [place] [facility] [address] [id number] [place] [address]- 4866 Jun, [facility] [place] [facility] [address] [id number] [place] [address]- 1572 Mar, [facility] [place] [facility] [address] [id number] [place] [address]- 0695 Mar, [facility] [place] [facility] [address] [id number] [place] [address]- 7862 Jan, [facility] [place] [facility] [address] [id number] [place] [address]- 2595 Jan, [facility] [place] [facility] [address] [id number] [place] [address]- 2085 Jan, [facility] [place] [facility] [address] [id number] [place] [address]- 9237 Jan, [facility] [place] [facility] [address] [id number] [place] [address]- 6179 Jan, [facility] [place] [facility] [address] [id number] [place] [address]- 4737 Jan, [facility] [place] [facility] [address] [id number] [place] [address]- 1093 Dec, [facility] [place] [facility] [address] [id number] [place] [address]- 8863 Dec, [facility] [place] [facility] [address] [id number] [place] [address]- 3613 Oct, [facility] [place] [facility] [address] [id number] [place] [address]- 9661 Oct, [facility] [place] [facility] [address] [id number] [place] [address]- 9196 Sep, [facility] [place] [facility] [address] [id number] [place] [address]- 5676 Sep, [facility] [place] [facility] [address] [id number] [place] [address]- 8573 August, [facility] [place] [facility] [address] [id number] [place] [address] August, [facility] [place] [facility] [address] [id number] [place] [address]- 1434 August, [facility] [place] [facility] [address] [id number] [place] [address]- 3263 August, [facility] [place] [facility] [address] [id number] [place] [address]- 7640 August, [facility] [place] [facility] [address] [id number] [place] [address]- 6006 August, [facility] [place] [facility] [address] [id number] [place] [address]- 5897 Jun, [facility] [place] [facility] [address] [id number] [place] [address]- 1225 Jun, [facility] [place] [facility] [address] [id number] [place] [address]- 3466 May, [facility] [place] [facility] [address] [id number] [place] [address]- 9770 May, [facility] [place] [facility] [address] [id number] [place] [address]- 4773 May, [facility] [place] [facility] [address] [id number] [place] [address]- 5907 May, [facility] [place] [facility] [address] [id number] [place] [address] Apr, [facility] [place] [facility] [address] [id number] [place] [address] Apr, [facility] [place] [facility] [address] [id number] [place] [address]- 9663 Mar, [facility] [place] [facility] [address] [id number] [place] [address]- 6650 Mar, [facility] [place] [facility] [address] [id number] [place] [address]- 9579 Mar, [facility] [place] [facility] [address] [id number] [place] [address]- 3666 Mar, [facility] [place] [facility] [address] [id number] [place] [address]- 3437 Mar, [facility] [place] [facility] [address] [id number] [place] [address]- 9046 Mar, [facility] [place] [facility] [address] [id number] [place] [address]- 0545 Mar, [facility] [place] [facility] [address] [id number] [place] [address]- 9204 Mar, [facility] [place] [facility] [address] [id number] [place] [address]- 6335 Mar, [facility] [place] [facility] [address] [id number] [place] [address]- 8159 Feb, [facility] [place] [facility] [address] [id number] [place] [address]- 5546 Feb, [facility] [place] [facility] [address] [id number] [place] [address]- 5037 Jan, [facility] [place] [facility] [address] [id number] [place] [address]- 6239 Jan, [facility] [place] [facility] [address] [id number] [place] [address]- 9569 Jan, [facility] [place] [facility] [address] [id number] [place] [address]- 7454 Jan, [facility] [place] [facility] [address] [id number] [place] [address]- 4305 Jan, [facility] [place] [facility] [address] [id number] [place] [address]- 6582 Dec, [facility] [address] [id number] [place] [address]- 2447 Nov, [facility] [place] [facility] [address] [id number] [place] [address]- 8458 Nov, [facility] [address] [id number] [place] [address]- 9940 Nov, [facility] [place] [facility] [address] [id number] [place] [address]- 9718 Oct, [facility] [address] [id number] [place] [address]- 9574 Oct, [facility] [address] [id number] [place] [address]- 2788 Sep, [facility] [place] [facility] [address] [id number] [place] [address]- 5697 Sep, [facility] [place] [facility] [address] [id number] [place] [address]- 7355 August, [facility] [address] [id number] [place] [address]- 7170 August, [facility] [place] [facility] [address] [id number] [place] [address]- 8109 August, [facility] [place] [facility] [address] [id number] [place] [address]- 4686 August, [facility] [place] [facility] [address] [id number] [address]- 3637 Jul, [facility] [place] [facility] [address] [id number] [place] [address]- 9786 Jul, [facility] [place] [facility] [address] [id number] [place] [address]- 6005 Jun, [facility] [place] [facility] [address] [id number] [place] [address]- 6326 May, [facility] [place] [facility] [address] [id number] [place] [address]- 6206 22 May, 2012 [facility] [address] [id number] [place] [address] 2546 18 May, 2012 [facility] [place] [facility] [address] [id number] [place] [address] 2546 15 May, 2012 [facility] [address] [id number] [place] [address] 2546 13 May, 2012 [facility] [place] [facility] [address] [id number] [place] [address] 2546 13 May, 2012 [facility] [address] [id number] [place] [address]- 7046 May, [facility] [address] [facility] [id number] [place] [address]- 6942 August, [facility] [address] [id number] [place] [address] 2546 23 Jul, 2011 [facility] [address] [id number] [place] [address] 2548 Jul, [facility] [address] [facility] [id number] [place] [address]- 0971 May, [facility] [address] [facility] [id number] [place] [address]- 1858 May, [facility] [address] [facility] [id number] [place] [address] 2546 Mar, [facility] [place] [facility] [address] [id number] [place] [address] 2546 11 Sep, 2009 [facility] [place] [facility] [address] [id number] [place] [address] 2546 16 Jul, 2009 [facility] [place] [facility] [address] [id number] [place] [address] 2546 07 Mar, 2009 [facility] [place] [facility] [address] [id number] [place] [address]- 0127 Feb, [facility] [address] [facility] [id number] [place] [address]- 3528 Feb, IMMUNIZATIONS No Known Immunizations SOCIAL HISTORY Never Assessed REASON FOR VISIT Right ear pain x 1 day - pt associates the pain with his Warthin's tumor. nicole PLAN OF CARE Activity Details Follow Up 2 - 3 Days prn Reason: VITAL SIGNS Height 71 in 2018-02-16 Weight 228.8 lbs 2018-02-16 Temperature 98 degrees Fahrenheit 2018-02-16 Heart Rate 72 bpm 2018-02-16 Respiratory Rate 20 2018-02-16 BMI 31.91 kg/m2 2018-02-16 Blood pressure systolic 112 mmHg 2018-02-16 Blood pressure diastolic 82 mmHg 2018-02-16 MEDICATIONS Medication Instructions Dosage Frequency Start Date End Date Duration Status Blood Glucose Test Strip 1 as directed Jul, Active Multiple Vitamins 1 Tablet by Oral route 1 time per day Mar, Active Singulair 10 mg Orally Once a day 1 tablet in the evening 24h Jul, 30 day(s) Active Magnesium 300 MG Orally Once a day 1 capsule with a meal 24h Active Lancets 1 Test 2 times per day DX: DM2 Oct, Active Flonase 50 MCG/ACT Nasally Once a day 2 sprays in each nostril 24h Active Wellbutrin XL 300 mg 1 tablet 24h Dec, Active Aspir-81 81 MG Orally Once a day 1 tablet 24h Active Lyrica 150 MG Orally 3 times a day 1 capsule 8h Sep, 28 days Active Oxygen 2 LPM Active potassium Oral Once a day 1 tablet (500 mg) 24h Active MetFORMIN HCl ER 500 mg Orally 2 times a day 2 tablets 12h Nov, 30 day(s) Active Omeprazole 20 MG Orally Once a day 1 capsule 24h Active Cephalexin 500 mg Orally 3 times a day 1 capsule 8h Jan, 3 Feb, 2018 7 days Active Nortriptyline HCl 25 MG Orally Once a day 1 capsule 24h Nov, 30 day(s) Active Calcium 1000 + D 1000-800 MG-UNIT Active Albuterol Sulfate HFA 108 (90 Base) MCG/ACT Inhalation every 4 hrs 2 puffs as needed 4h Active Atorvastatin Calcium Active Lipitor 80 MG Orally Once a day 1 tablet 24h Active Fish Oil + D3 4838-7542 MG-UNIT Orally twice a day 1 capsule 12h Active Zyrtec-D Allergy & Congestion 5-120 MG Orally Once a day 1 tablet as needed 24h Dec, May, 30 day(s) Active RESULTS No Results PROCEDURES No Known [...]
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
--- OUTSIDE RECORDS SUMMARY | 2018-03-12 07:57 | XMS REPORT ---
Author Author JAYE RIGGS Organization [facility] Address [address] [place] [address] Care Team Providers Care Meter Attendant Name Role Phone JAYE RIGGS Unavailable PROBLEMS Type Condition ICD9-CM Code UMP49-HO Code Onset Dates Condition Status SNOMED Code Problem Bilateral tinnitus H93.13 Active 0514176383915 Problem Tinnitus of both ears H93.13 Active 6671013066429 Problem Tinnitus of left ear H93.12 Active 1825183619764 Problem Altered mental status R41.82 Active 882947481 Problem Cerebrovascular accident (CVA) due to embolism of other cerebral artery I63.49 Active 063940635 Problem Type 2 diabetes mellitus with other diabetic neurological complication E11.49 Active 63596600 Problem Type 2 diabetes mellitus with hyperglycemia E11.65 Active 839021908271007 Problem Type 2 diabetes mellitus with diabetic neuropathy, without long-term current use of insulin E11.40 Active 74118494 Problem Observed sleep apnea G47.30 Active 75496959 Problem Elevated white blood cell count, unspecified D72.829 Active 284184110 Problem Essential (primary) hypertension I10 Active 68284100 Problem CAD (coronary artery disease) 414.00 Active 78580147 Problem Type 2 diabetes mellitus with foot ulcer E11.621 Active 976038201 Problem Neuropathy G62.9 Active 598568378 Problem Type 2 diabetes mellitus without complications E11.9 Active 799274355 Problem Controlled type 2 diabetes mellitus without complication, without long -term current use of insulin E11.9 Active 999219005 Problem Atherosclerotic heart disease of [place] coronary artery without angina pectoris I25.10 Active 450827128688249 Problem Seasonal allergic rhinitis due to other allergic trigger J30.89 Active 529871998 ALLERGIES Substance Reaction Event Type Date Status Brilinta rash, nausea, vomiting Drug Allergy Nov, Active Plavix rash, nausea, vomiting Drug Allergy Nov, Active ENCOUNTERS Encounter Location Date Diagnosis [facility] [address] [facility] [id number] [place] [address]18- [address]95 20 Dec, 2017 Neuropathy G62.9 ; Cerebrovascular accident (CVA) due to embolism of other cerebral artery I63.49 and Seasonal allergic rhinitis due to other allergic trigger J30.[address] [facility] [id number] [place] [address] -9514 10 Dec, 2017 Altered mental status R41.82 [facility] [address] [address]- [address] 16 Nov, 2017 Type 2 diabetes mellitus with diabetic neuropathy, without long-term current use of insulin E11.40 [facility] [address] [address]- 7911 17 Oct, 2017 Neuropathy G62.9 ; Type 2 diabetes mellitus with other diabetic neurological complication E11.49 ; Type 2 diabetes mellitus with hyperglycemia E11.65 ; Actinic keratoses L57.0 and Observed sleep apnea G47.30 [facility] [address] [address]- [address] Sep, Tinnitus of both ears H93.13 and Actinic keratitis, unspecified laterality H16.139 [facility] [address] [address]- [address] August, Type 2 diabetes mellitus without complications E11.9 and Controlled type 2 diabetes mellitus without complication, without long-term current use of insulin E11.9 [place] [facility] [id number] [place] [address] 21262- 2559 15 Aug, 2017 Seborrheic keratoses L82.1 and Tinnitus of left ear H93.12 [facility] [address] [address]- [address] Jul, Controlled type 2 diabetes mellitus without complication, without long-term current use of insulin E11.9 ; Seborrheic keratoses L82.1 ; Bilateral tinnitus H93.13 and Seasonal allergic rhinitis due to other allergic trigger J30.89 [facility] [id number] [place] [address] [id number] May, 2017 Encounter for dental examination Z01.20 [facility] [address] [id number] Jan, Encounter for dental examination Z01.20 [facility] [id number] [place] [address] 96243- 5266 02 Jan, 2017 Type 2 diabetes mellitus without complications E11.9 and Acute non-recurrent maxillary sinusitis J01.00 [facility] [id number] [place] [address] -2708 Dec, Right ear impacted cerumen H61.21 and Acute suppurative otitis media of right ear without spontaneous rupture of tympanic membrane, recurrence not specified H66.001 [facility] [id number] [place] [address] 500029- 3056 Nov, Type 2 diabetes mellitus without complications E11.9 and Neuropathy G62.9 [facility] [id number] [place] [address] [id number] Oct, Encounter for dental examination Z01.20 [facility] [id number] [place] [address] [id number] Jun, Dental examination Z01.20 [facility] [id number] [place] [address] 869539- 3516 16 Jun, 2016 Atherosclerotic heart disease of [place] coronary artery without angina pectoris I25.10 [facility] [id number] [place] [address] [id number]- 1076 15 Jun, 2016 Atherosclerotic heart disease of [place] coronary artery without angina pectoris I25.10 [facility] [id number] [place] [address] 05583- 2396 Jun, Type 2 diabetes mellitus without complications E11.9 [facility] [id number] [place] [address] [phone] May, Encounter for dental examination Z01.20 [facility] [address] [id number] Apr, Dental caries K02.9 [facility] [id number] [place] [address] [id number] Apr, Dental examination Z01.20 [place] [address] [address] 2546 08 Dec, 2015 Type 2 diabetes mellitus without complications E11.9 ; penitentiary current use of insulin Z79.4 ; Essential (primary) hypertension I10 and Elevated white blood cell count, unspecified D72.829 [place] [address] 239092- 8596 Jul, Diabetes mellitus without mention of complication, type II or unspecified type, not stated as uncontrolled 250.[address] [address]- [address]206 Jul, [address] [address]- [address]6 Jan, Encounter for immunization Z23 [facility] [address] [id number] Dec, Dental examination V72.[address] [id number]- 6706 Nov, Cancer of lung, upper lobe 162.[address] [place] [id number] [place] [address] 68744- 9246 Sep, Lung cancer 162.9 ; CAD (coronary artery disease) 414.00 and Depression [address] [place] [id number] [place] [address] 82944- 4236 Jul, [place] [id number] [place] [address] [id number] 7106 Jul, [place] [address] [address]99- 3056 Jun, [place] [address] 22476- 0806 Jun, [place] [address] [address]- 4217 Mar, [facility] [place] [facility] [address] [id number] [place] [address]- 0802 Mar, [facility] [place] [facility] [address] [id number] [place] [address]- 0666 Jan, [facility] [place] [facility] [address] [id number] [place] [address]- 7171 Jan, [facility] [place] [facility] [address] [id number] [place] [address]- 0159 Jan, [facility] [place] [facility] [address] [id number] [place] [address]- 0309 Jan, [facility] [place] [facility] [address] [id number] [place] [address]- 2917 Jan, [facility] [place] [facility] [address] [id number] [place] [address]- 0579 Jan, [facility] [place] [facility] [address] [id number] [place] [address]- 8493 Dec, [facility] [place] [facility] [address] [id number] [place] [address] Dec, [facility] [place] [facility] [address] [id number] [place] [address]- 6005 Oct, [facility] [place] [facility] [address] [id number] [place] [address]- 0212 Oct, [facility] [place] [facility] [address] [id number] [place] [address]- 1370 Sep, [facility] [place] [facility] [address] [id number] [place] [address]- 7666 Sep, [facility] [place] [facility] [address] [id number] [place] [address]- 6574 August, [facility] [place] [facility] [address] [id number] [place] [address]- 4196 August, [facility] [place] [facility] [address] [id number] [place] [address]- 1519 August, [facility] [place] [facility] [address] [id number] [place] [address]- 1384 August, [facility] [place] [facility] [address] [id number] [place] [address]- 1466 August, [facility] [place] [facility] [address] [id number] [place] [address]- 5529 August, [facility] [place] [facility] [address] [id number] [place] [address]- 2335 Jun, [facility] [place] [facility] [address] [id number] [place] [address]- 7017 Jun, [facility] [place] [facility] [address] [id number] [place] [address]- 4498 May, [facility] [place] [facility] [address] [id number] [place] [address]- 2619 May, [facility] [place] [facility] [address] [id number] [place] [address]- 5900 May, [facility] [place] [facility] [address] [id number] [place] [address]- 1979 May, [facility] [place] [facility] [address] [id number] [place] [address]- 8809 Apr, [facility] [place] [facility] [address] [id number] [place] [address]- 6941 Apr, [facility] [place] [facility] [address] [id number] [place] [address]- 4457 Mar, [facility] [place] [facility] [address] [id number] [place] [address]- 3136 Mar, [facility] [place] [facility] [address] [id number] [place] [address]- 7356 Mar, [facility] [place] [facility] [address] [id number] [place] [address]- 1134 Mar, [facility] [place] [facility] [address] [id number] [place] [address]- 9288 Mar, [facility] [place] [facility] [address] [id number] [place] [address]- 7544 Mar, [facility] [place] [facility] [address] [facility] [id number] [place] [address]- 2542 Mar, [facility] [place] [facility] [address] [id number] [place] [address]- 1912 Mar, [facility] [place] [facility] [address] [id number] [place] [address]- 5391 Mar, [facility] [place] [facility] [address] [id number] [place] [address]- 4477 Feb, [facility] [place] [facility] [address] [id number] [place] [address]- 1843 Feb, [facility] [place] [facility] [address] [id number], [place] [address]- 6307 Jan, [facility] [place] [facility] [address] [id number][place] [address]- 2969 Jan, [facility] [place] [facility] [address] [facility] [id number], [place] [address]- 5137 Jan, [facility] [place] [facility] [address] [id number][place] [address]- 5730 Jan, [facility] [place] [facility] [address] [id number][place] [address]- 0579 Jan, [facility] [place] [facility] [address] [id number], [place] [address]- 2544 Dec, [facility] [place] [facility] [address] [facility] [id number][place] [address]- 2546 Nov, [facility] [place] [facility] [address] [facility] [id number][place] [address]- 2546 Nov, [facility] [place] [facility] [address] [id number] [place] [address]- 7229 Nov, [facility] [address] [id number] [place] [address]- 5994 Oct, [facility] [address] [id number] [place] [address]- 6206 Oct, [facility] [address] [id number] [place] [address]- 4651 Sep, [facility] [place] [facility] [address] [id number] [place] [address]- 9046 Sep, [facility] [address] [id number] [place] [address]- 2354 August, [facility] [address] [id number] [place] [address]- 3056 August, [facility] [address] [id number] [place] [address]- 7132 August, [facility] [address] [id number] [place] [address]- 5234 August, [facility] [address] [id number] [place] [address]- 6549 Jul, [facility] [address] [facility] [id number] [place] 5345 Jul, [facility] [address] [id number] [place] [address]- 6621 Jun, [facility] [place] [facility] [address] [id number] [place] [address]- 8619 May, [facility] [place] [facility] [address] [id number] [place] [address]- 1888 May, [facility] [place] [facility] [address] [id number] [place] [address]- 2546 18 May, 2012 [facility] [place] [facility] [address] [id number] [place] [address]- 8292 15 May, 2012 [facility] [address] [address]- 9[address] May, [facility] [address], [place] [address]- 5666 May, [facility] [address] [address]- 8566 May, [facility] [address] [address]- 2156 August, [facility] [address], [place] [address]- 7866 Jul, [facility] [id number] [place] [address]57- 7926 Jul, [facility] [address], [place] [address]- 9466 May, [facility] [address], [place] [address]- 0446 May, [facility] [address], [place] [address]- 6956 Mar, [facility] [address] [address]- 7636 Sep, [facility] [address] [address]- 0746 Jul, [facility] [address], [place] [address]- 6716 Mar, [facility] [address], [place] [address]- 8216 Feb, [facility] [address] [address]- 3642 Feb, IMMUNIZATIONS No Known Immunizations SOCIAL HISTORY Never Assessed REASON FOR VISIT Diabetes, C/O still having tinitis, Reports meds were messed up last time. Lyrica was suppose to be increased to 100 mg and received 75 mg, he has been taking 150 mg and it is working well. Reports able to walk without pain. CBrumbackRN, New tremors in aric hands PLAN OF CARE Activity Details Follow Up 4 Weeks Reason:dm2 uncontrolled VITAL SIGNS Height 71 in 2017-12-06 Weight 220.3 lbs 2017-12-06 Temperature 97.9 degrees Fahrenheit 2017-12-06 Heart Rate 80 bpm 2017-12-06 Respiratory Rate 20 2017-12-06 Oximetry on room air:97 % 2017-12-06 BMI 30.72 kg/m2 2017-12-06 Blood pressure systolic 132 mmHg 2017-12-06 Blood pressure diastolic 84 mmHg 2017-12-06 MEDICATIONS Medication Instructions Dosage Frequency Start Date End Date Duration Status Lipitor 80 MG Orally Once a day 1 tablet 24h Active Magnesium 300 MG Orally Once a day 1 capsule with a meal 24h Active Calcium 1000 + D 1000-800 MG-UNIT Active Aspir-81 81 MG Orally Once a day 1 tablet 24h Active Nortriptyline HCl 25 MG Orally Once a day 1 capsule 24h Nov, 30 day(s) Active Lancets 1 Test 2 times per day DX: DM2 Oct, Active potassium Oral Once a day 1 tablet (500 mg) 24h Active Omeprazole 20 MG Orally Once a day 1 capsule 24h Active Flonase 50 MCG/ACT Nasally Once a day 2 sprays in each nostril 24h Active Blood Glucose Test Strip 1 as directed Jul, Active Oxygen 2 LPM Active Fish Oil + D3 6610-1294 MG-UNIT Orally twice a day 1 capsule 12h Active Albuterol Sulfate HFA 108 (90 Base) MCG/ACT Inhalation every 4 hrs 2 puffs as needed 4h Active MetFORMIN HCl ER 500 mg Orally 2 times a day 2 tablets 12h Nov, 30 day(s) Active Lyrica 150 MG Orally 2 times a day 1 capsule 12h Sep, Active Wellbutrin XL 300 mg 1 tablet 24h Dec, Active Multiple Vitamins 1 Tablet by Oral route 1 time per day Mar, Active Singulair 10 mg Orally Once a day 1 tablet in the evening 24h Jul, 30 day(s) Active RESULTS Name Result Date Reference Range A1C (IN HOUSE) 2017-12-06 A1C IN HOUSE 6.6 4.3 - 5.6 % Previous A1c 6.2 Lot [id number] Exp date 06/2019 PROCEDURES Procedure Date Ordered Result Body Site GLYCATED HEMOGLOBIN TEST Dec 06, 2017 INSTRUCTIONS MEDICATIONS ADMINISTERED No Known [...]
--- OUTSIDE RECORDS SUMMARY | 2018-03-12 08:02 | XMS REPORT | Continuity of Care Document ---
Author Author [facility] Address Unknown Phone Unavailable Allergies Active Description Code Type Severity Reaction Onset Reported/Identified Relationship to Patient Clinical Status Yes celery Food Allergy N/A N/A 03/12/2009 Yes celery Food Allergy 03/12/2009 Yes Plavix 75 mg tablet Drug Allergy N/A N/A 11/01/2012 Yes Brilinta Drug Allergy N/A N/A 03/26/2013 Yes celery [id number] Drug Allergy Unknown N/A 07/28/2016 Yes clopidogrel [id number] Drug Allergy Unknown NAUSEA 07/28/2016 Yes ticagrelor [id number] Drug Allergy Unknown NAUSEA 07/28/2016 Medications There [...] RODRIGUEZ MD 272.4 HYPERLIPIDEMIA UNSPECIFIED 11/29/2007 DARSHAN RODRIGUZE MD 729.5 PAIN IN LIMB 11/29/2007 DARSHAN [...] RIGGS APRN 305.1 TOBACCO ABUSE 01/10/2008 JAYE RIGSG APRN 477.9 RHINITIS ALLERGIC 01/10/2008 JAYE RIGGS [...] UNSPECIFIED 09/01/2011 780.60 FEVER, UNSPECIFIED 09/01/2011 ONEIL FANCY PACKER, JAYE T 780.60 FEVER, UNSPECIFIED 09/01/2011 MICHAEL [...] NEC 06/11/2012 Ot 414.01 CORONARY ATHEROSCLEROSIS OF [place] CORON 06/11/2012 Ot 530.81 ESOPHAGEAL REFLUX 06/11/2012 [...] KNEE LEG ANKLE AND FOOT 10/17/2012 JAYE RIGSG APRN 959.7 OTHER AND UNSPECIFIED INJURY TO [...] DARSHAN Ruelas Ot 530.81 09/01/2014 MICHAEL FERRO, DARSHNA Ruelas Ot 577.9 09/01/2014 MICHAEL FERRO, DARSHAN Ruelas Ot 715.90 09/01/2014 MICHAEL FERRO, DARSHAN Ruelas Ot 786.59 09/01/2014 MICHAEL FERRO, DARSHAN Ruelas Ot 786.6 09/01/2014 MICHAEL FERRO, DARSHAN uRelas Ot V45.82 09/02/2014 Ot 823.00 09/02/2014 Ot [...] DARSHAN Ruelas Ot 414.01 CORONARY ATHEROSCLEROSIS OF [place] CORON 09/03/2014 MICHAEL FERRO, DARSHAN Ruelas Ot [...] BRANDY FERRO, CHAU-RJ Ot V45.82 12/14/2014 BRANDY FEROR, CHAU-RJ Ot V58.69 12/16/2014 BRANDY FERRO, CHAU-RJ [...] KANDI-RJ Ot V58.69 12/30/2014 TEREZA HILAH S INVESTMENT BROKER Ot 162.3 12/30/2014 TEREZA, HILAH S INVESTMENT BROKER Ot 250.00 12/30/2014 TEREZA HILAH S INVESTMENT BROKER Ot 272.4 12/30/2014 TEREZA HILAH S INVESTMENT BROKER Ot 414.00 12/30/2014 STARKS HILAH S INVESTMENT BROKER Ot 793.0 12/30/2014 STARKS, HILAH S INVESTMENT BROKER Ot V45.82 12/30/2014 TEREZA HILAH S INVESTMENT BROKER Ot V58.69 01/13/2015 BRANDY FERRO, KANDI-RJ Ot [...] CHAPO J Ot 162.9 02/24/2015 VISHNU STARKS INVESTMENT BROKER Ot 162.3 02/24/2015 VISHNU STARKS INVESTMENT BROKER Ot 250.00 02/24/2015 VISHNU STARKS INVESTMENT BROKER Ot 272.4 02/24/2015 VISHNU STARKS INVESTMENT BROKER Ot 414.00 02/24/2015 VISHNU STARKS INVESTMENT BROKER Ot 793.0 02/24/2015 VISHNU STARKS INVESTMENT BROKER Ot V45.82 02/24/2015 VISHNU STARKS INVESTMENT BROKER Ot V58.69 02/24/2015 BRANDY FERRO, JAMMIE Ot 162.3 02/24/2015 JAMMIE NAVA MD Ot 250.00 02/24/2015 JAMMIE NAVA MD Ot 272.4 02/24/2015 LILY NAVA MDRJ Ot 414.00 02/24/2015 BRANDY FERRO, CHAU-RJ Ot 793.0 02/24/2015 BRANDY FERRO, CHAU-RJ Ot V45.82 02/24/2015 BRANDY FERRO, CHAU-RJ Ot V58.69 02/24/2015 ESTEVAN FERRO, CHAPO J Ot 162.9 03/23/2015 BRANDY FERRO, CHAU-RJ Ot 162.3 03/23/2015 BRANDY EFRRO, CHAU-RJ Ot 250.00 03/23/2015 BRANDY FERRO, CHAU-RJ [...] CHAPO J Ot 162.9 03/30/2015 VISHNU STARKS INVESTMENT BROKER Ot 162.3 03/30/2015 VISHNU STARKS INVESTMENT BROKER Ot 250.00 03/30/2015 VISHNU STARKS INVESTMENT BROKER Ot 272.4 03/30/2015 VISHNU STARKS INVESTMENT BROKER Ot 414.00 03/30/2015 VISHNU STARKS INVESTMENT BROKER Ot 793.0 03/30/2015 VISHNU STARKS INVESTMENT BROKER Ot V45.82 03/30/2015 VISHNU STARKS INVESTMENT BROKER Ot V58.69 03/30/2015 BRANDY FERRO, JAMMIE Ot [...] MD, Ot I25.10 ATHSCL HEART DISEASE OF [place] CORONARY 04/27/2015 JAMMIE NAVA MD, Ot Z51.11 ENCOUNTER FOR ANTINEOPLASTIC CHEMOTHERAP 04/27/2015 JAMMIE NAVA MD Ot Z79.899 OTHER PROGRAM ENGINEER (CURRENT) DRUG THERAPY 04/27/2015 JAMMIE NAVA MD, Ot Z98.61 CORONARY ANGIOPLASTY STATUS 07/28/2016 JAMMIE NAVA MD, Ot C34.10 MALIGNANT NEOPLASM OF UPPER LOBE, UNSP B 07/28/2016 JAMMIE NAVA MD Ot E11.9 TYPE 2 DIABETES MELLITUS WITHOUT COMPLIC 07/28/2016 JAMMIE NAVA MD, Ot E78.5 HYPERLIPIDEMIA, UNSPECIFIED 07/28/2016 JAMMIE NAVA MD, Ot I25.10 ATHSCL HEART DISEASE OF [place] CORONARY 07/28/2016 JAMMIE NAVA MD Ot Z51.11 ENCOUNTER FOR ANTINEOPLASTIC CHEMOTHERAP 07/28/2016 JAMMIE NAVA MD, Ot Z79.899 OTHER ALF (CURRENT) DRUG THERAPY 07/28/2016 JAMMIE NAVA MD, [...] MAL LAURA BRONCH/LUNG NOS 07/31/2016 VISHNU STARKS INVESTMENT BROKER Ot 162.3 MAL LAURA UPPER LOBE LUNG 07/31/2016 VISHNU STARKS INVESTMENT BROKER Ot 250.00 DIAB CHETNA WO COMPL, TYPE II OR UNSPEC TY 07/31/2016 VISHNU STARKS INVESTMENT BROKER Ot 272.4 HYPERLIPIDEMIA NEC/NOS 07/31/2016 VISHNU STARKS INVESTMENT BROKER Ot 414.00 CORON ATHEROSCLER NOS TYPE VESSEL, NATIV 07/31/2016 VISHNU STARKS INVESTMENT BROKER Ot 793.0 NOSP (ABN) FINDINGS ON RADIOLOGICAL [...] MD Ot I25.10 ATHSCL HEART DISEASE OF [place] CORONARY 07/31/2016 JAMMIE NAVA MD Ot Z51.11 ENCOUNTER FOR ANTINEOPLASTIC CHEMOTHERAP 07/31/2016 JAMMIE NAVA MD Ot Z79.899 OTHER ALF (CURRENT) DRUG THERAPY 07/31/2016 JAMMIE NAVA MD Ot Z98.61 CORONARY ANGIOPLASTY STATUS 07/31/2016 Ot 786.50 CHEST PAIN NOS 07/31/2016 GABI VALENCIA MD Ot V54.01 ENCNTR FOR REMOVAL OF INTERNAL FIXATION 07/31/2016 GABI VALENCIA MD Ot V72.84 EXAM PRE-OPERATIVE NOS 07/31/2016 GABI VALENCIA MD Ot V74.8 SCREEN-BACTERIAL DIS NEC 07/31/2016 CHAPO BARRETO MD Ot 162.9 MAL LAURA BRONCH/LUNG NOS 07/31/2016 VISHNU STARKS INVESTMENT BROKER Ot 162.3 MAL LAURA UPPER LOBE LUNG 07/31/2016 VISHNU STARKS INVESTMENT BROKER Ot 250.00 DIAB CHETNA WO COMPL, TYPE II OR UNSPEC TY 07/31/2016 VISHNU STARKS INVESTMENT BROKER Ot 272.4 HYPERLIPIDEMIA NEC/NOS 07/31/2016 VISHNU STARKS INVESTMENT BROKER Ot 414.00 CORON ATHEROSCLER NOS TYPE VESSEL, NATIV 07/31/2016 VISHNU STARKS INVESTMENT BROKER Ot 793.0 NOSP (ABN) FINDINGS ON RADIOLOGICAL OT 07/31/2016 VISHNU STARKS INVESTMENT BROKER Ot V45.82 PERCUTANEOUS TRANSLUM CORON ANGIOPLASTY 07/31/2016 VISHNU STARKS INVESTMENT BROKER Ot V58.69 OT MED,LT,CURRENT USE 07/31/2016 JAMMIE NAVA MD Ot C34.10 MALIGNANT NEOPLASM OF UPPER LOBE, UNSP B 07/31/2016 JAMMIE NAVA MD Ot E11.9 TYPE 2 DIABETES MELLITUS WITHOUT COMPLIC 07/31/2016 JAMMIE NAVA MD, Ot E78.5 HYPERLIPIDEMIA, UNSPECIFIED 07/31/2016 JAMMIE NAVA MD, Ot I25.10 ATHSCL HEART DISEASE OF [place] CORONARY 07/31/2016 JAMMIE NAVA MD Ot Z51.11 ENCOUNTER FOR ANTINEOPLASTIC CHEMOTHERAP 07/31/2016 JAMMIE NAVA MD Ot Z79.899 OTHER PROGRAM ENGINEER (CURRENT) DRUG THERAPY 07/31/2016 JAMMIE NAVA MD [...] MAL LAURA BRONCH/LUNG NOS 09/12/2016 VISHNU STARKS INVESTMENT BROKER Ot 162.3 MAL LAURA UPPER LOBE LUNG 09/12/2016 VISHNU STARKS INVESTMENT BROKER Ot 250.00 DIAB CHETNA WO COMPL, TYPE II OR UNSPEC TY 09/12/2016 VISHNU STARKS INVESTMENT BROKER Ot 272.4 HYPERLIPIDEMIA NEC/NOS 09/12/2016 VISHNU STARKS INVESTMENT BROKER Ot 414.00 CORON ATHEROSCLER NOS TYPE VESSEL, NATIV 09/12/2016 VISHNU STARKS INVESTMENT BROKER Ot 793.0 NOSP (ABN) FINDINGS ON RADIOLOGICAL [...] MD Ot I25.10 ATHSCL HEART DISEASE OF [place] CORONARY 09/12/2016 JAMMIE NAVA MD, Ot Z51.11 ENCOUNTER FOR ANTINEOPLASTIC CHEMOTHERAP 09/12/2016 JAMMIE NAVA MD, Ot Z79.899 OTHER PROGRAM ENGINEER (CURRENT) DRUG THERAPY 09/12/2016 JAMMIE NAVA MD, Ot Z98.61 CORONARY ANGIOPLASTY STATUS 09/12/2016 SRIDHAR BLACK Ot E11.9 TYPE 2 DIABETES MELLITUS WITHOUT COMPLIC 09/12/2016 SRIDHAR BLACK INVESTMENT BROKER Ot I25.10 ATHSCL HEART DISEASE OF [place] CORONARY 09/12/2016 CHRISTISRIDHAR CLARK INVESTMENT BROKER Ot 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 [place]IF[place] 09/12/2016 SRIDHAR BLACK INVESTMENT BROKER Ot R06.02 SHORTNESS OF BREATH 09/12/2016 CHRISTISRIDHAR CLARK INVESTMENT BROKER Ot R07.89 OTHER CHEST PAIN 09/12/2016 CHRISTISRIDHAR CLARK INVESTMENT BROKER Ot T82.855A STENOSIS OF CORONARY ARTERY STENT, INITI 09/12/2016 CHRISTISRIDHAR CLARK INVESTMENT BROKER Ot Z79.84 PROGRAM ENGINEER (CURRENT) USE OF ORAL HYPOGLYC 09/12/2016 CHRISTISRIDHAR CLARK INVESTMENT BROKER Ot Z79.899 OTHER PROGRAM ENGINEER (CURRENT) DRUG THERAPY 09/12/2016 CHRISTISRIDHAR CLARK INVESTMENT BROKER Ot Z82.49 FAMILY HX OF ISCHEM HEART DIS AND OTH DI 09/12/2016 CHRISTISRIDHAR CLARK INVESTMENT BROKER Ot Z85.118 PERSONAL HISTORY OF MALIGNANT NEOPLASM O 09/12/2016 CHRISTISRIDHAR CLARK INVESTMENT BROKER Ot Z87.891 PERSONAL HISTORY OF NICOTINE DEPENDENCE 09/12/2016 CHRISTISRIDAHR CLARK INVESTMENT BROKER Ot Z90.2 ACQUIRED ABSENCE OF LUNG [PART OF] 09/12/2016 CHRISTISRIDHAR CLARK INVESTMENT BROKER Ot Z92.21 PERSONAL HISTORY OF ANTINEOPLASTIC CHEMO 09/21/2016 Ot 786.50 CHEST PAIN NOS 09/21/2016 GABI VALENCIA MD Ot V54.01 ENCNTR FOR REMOVAL OF INTERNAL FIXATION 09/21/2016 GABI VALENCIA MD Ot V72.84 EXAM PRE-OPERATIVE NOS 09/21/2016 GABI VALENCIA MD Ot V74.8 SCREEN-BACTERIAL DIS NEC 09/21/2016 CHAPO BARRETO MD Ot 162.9 MAL LAURA BRONCH/LUNG NOS 09/21/2016 VISHNU STARKS INVESTMENT BROKER Ot 162.3 MAL LAURA UPPER LOBE LUNG 09/21/2016 VISHNU STARKS INVESTMENT BROKER Ot 250.00 DIAB CHETNA WO COMPL, TYPE II OR UNSPEC TY 09/21/2016 VISHNU STARKS INVESTMENT BROKER Ot 272.4 HYPERLIPIDEMIA NEC/NOS 09/21/2016 VISHNU STARKS INVESTMENT BROKER Ot 414.00 CORON ATHEROSCLER NOS TYPE VESSEL, NATIV 09/21/2016 VISHNU STARKS INVESTMENT BROKER Ot 793.0 NOSP (ABN) FINDINGS ON RADIOLOGICAL OT 09/21/2016 VISHNU STARKS INVESTMENT BROKER Ot V45.82 PERCUTANEOUS TRANSLUM CORON ANGIOPLASTY 09/21/2016 VISHNU STARKS INVESTMENT BROKER Ot V58.69 OTH MED,LT,CURRENT USE 09/21/2016 JAMMIE NAVA MD Ot C34.10 MALIGNANT NEOPLASM OF UPPER LOBE, UNSP B 09/21/2016 JAMMIE NAVA MD Ot E11.9 TYPE 2 DIABETES MELLITUS WITHOUT COMPLIC 09/21/2016 JAMMIE NAVA MD Ot E78.5 HYPERLIPIDEMIA, UNSPECIFIED 09/21/2016 JAMMIE NAVA MD, Ot I25.10 ATHSCL HEART DISEASE OF [place] CORONARY 09/21/2016 JAMMIE NAVA MD Ot Z51.11 ENCOUNTER FOR ANTINEOPLASTIC CHEMOTHERAP 09/21/2016 JAMMIE NAVA MD Ot Z79.899 OTHER PROGRAM ENGINEER (CURRENT) DRUG THERAPY 09/21/2016 JAMMIE NAVA MD Ot Z98.61 CORONARY ANGIOPLASTY STATUS 09/21/2016 SRIDHAR BLACK INVESTMENT BROKER Ot E11.9 TYPE 2 DIABETES MELLITUS WITHOUT COMPLIC 09/21/2016 SRIDHAR BLACK INVESTMENT BROKER Ot I25.10 ATHSCL HEART DISEASE OF [place] CORONARY 09/21/2016 SRIDHAR BALCK INVESTMENT BROKER Ot 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 [place]CIF[place] 09/21/2016 SRIDHAR BLACK INVESTMENT BROKER Ot R06.02 SHORTNESS OF BREATH 09/21/2016 SRIDHAR BLACK INVESTMENT BROKER Ot R07.89 OTHER CHEST PAIN 09/21/2016 SRIDHAR BLACK INVESTMENT BROKER Ot T82.855A STENOSIS OF CORONARY ARTERY STENT, INITI 09/21/2016 SRIDHAR BLACK INVESTMENT BROKER Ot Z79.84 PROGRAM ENGINEER (CURRENT) USE OF ORAL HYPOGLYC 09/21/2016 SRIDHAR BLACK INVESTMENT BROKER Ot Z79.899 OTHER ALF (CURRENT) DRUG THERAPY 09/21/2016 SRIDHAR BLACK INVESTMENT BROKER Ot Z82.49 FAMILY HX OF ISCHEM HEART DIS AND OTH DI 09/21/2016 SRIDHAR BLACK INVESTMENT BROKER Ot Z85.118 PERSONAL HISTORY OF MALIGNANT NEOPLASM O 09/21/2016 SRIDHAR BLACK INVESTMENT BROKER Ot Z87.891 PERSONAL HISTORY OF NICOTINE DEPENDENCE 09/21/2016 SRIDHAR BLACK INVESTMENT BROKER Ot Z90.2 ACQUIRED ABSENCE OF LUNG [PART OF] 09/21/2016 SRIDHAR BLACK INVESTMENT BROKER Ot Z92.21 PERSONAL HISTORY OF ANTINEOPLASTIC CHEMO 09/22/2016 AKANKSHA FERRO FACC, ALI FACP CCDS Ot C34.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, LEFT B 09/22/2016 AKANKSHA FERRO FACC, ALI FACP CCDS Ot E13.9 OTHER SPECIFIED DIABETES MELLITUS WITHOU 09/22/2016 AKANKSHA CHAMBERSC, ALI FACP CCDS Ot E78.4 OTHER HYPERLIPIDEMIA 09/22/2016 AKANKSHA FERRO FACC, ALI FACP CCDS Ot I25.10 ATHSCL HEART DISEASE OF [place] CORONARY 09/22/2016 AKANKSHA FERRO FACC, ALI FACP CCDS Ot R00.2 PALPITATIONS 09/22/2016 AKANKSHA FERRO FACC, ALI FACP CCDS Ot R06.02 SHORTNESS OF BREATH 09/22/2016 AKANKSHA FERRO FACC, ALI FACP CCDS Ot Z87.891 PERSONAL HISTORY OF NICOTINE DEPENDENCE 09/23/2016 SRIDHAR BLACK INVESTMENT BROKER Ot E11.9 TYPE 2 DIABETES MELLITUS WITHOUT COMPLIC 09/23/2016 SRIDHAR BLACK INVESTMENT BROKER Ot I25.10 ATHSCL HEART DISEASE OF [place] CORONARY 09/23/2016 SRIDHAR BLACK INVESTMENT BROKER Ot 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 [place] 09/23/2016 SRIDHAR BLACK INVESTMENT BROKER Ot R06.02 SHORTNESS OF BREATH 09/23/2016 SRIDHAR BLACK INVESTMENT BROKER Ot R07.89 OTHER CHEST PAIN 09/23/2016 SRIDHAR BLACK INVESTMENT BROKER Ot T82.855A STENOSIS OF CORONARY ARTERY STENT, INITI 09/23/2016 SRIDHAR BLACK INVESTMENT BROKER Ot Z79.84 ALF (CURRENT) USE OF ORAL HYPOGLYC 09/23/2016 SRIDHAR BLACK INVESTMENT BROKER Ot Z79.899 OTHER PROGRAM ENGINEER (CURRENT) DRUG THERAPY 09/23/2016 SRIDHAR BLACK INVESTMENT BROKER Ot Z82.49 FAMILY HX OF ISCHEM HEART DIS AND OTH DI 09/23/2016 SRIDHAR BLACK INVESTMENT BROKER Ot Z85.118 PERSONAL HISTORY OF MALIGNANT NEOPLASM O 09/23/2016 SRIDHAR BLACK INVESTMENT BROKER Ot Z87.891 PERSONAL HISTORY OF NICOTINE DEPENDENCE 09/23/2016 SRIDHAR BLACK INVESTMENT BROKER Ot Z90.2 ACQUIRED ABSENCE OF LUNG [PART OF] 09/23/2016 SRIDHAR LBACK INVESTMENT BROKER Ot Z92.21 PERSONAL HISTORY OF ANTINEOPLASTIC CHEMO 10/03/2016 AKANKSHA FERRO FACC, ALI FACP CCDS Ot C34.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, LEFT B 10/03/2016 AKANKSHA CHAMBERSC, ALI FACP CCDS Ot E13.9 OTHER SPECIFIED DIABETES MELLITUS WITHOU 10/03/2016 AKANKSHA FERRO FACC, ALI FACP CCDS Ot E78.4 OTHER HYPERLIPIDEMIA 10/03/2016 AKANKSHA CHAMBERSC, ALI FACP CCDS Ot I25.10 ATHSCL HEART DISEASE OF [place] CORONARY 10/03/2016 AKANKSHA CHAMBERSC, ALI FACP CCDS Ot R00.2 PALPITATIONS 10/03/2016 AKANKSHA CHAMBERSC, ALI FACP CCDS Ot R06.02 SHORTNESS OF BREATH 10/03/2016 AKANKSHA FERRO FACC, ALI FACP CCDS Ot Z87.891 PERSONAL HISTORY OF NICOTINE DEPENDENCE 10/05/2016 SRIDHAR BLACK INVESTMENT BROKER Ot E11.9 TYPE 2 DIABETES MELLITUS WITHOUT COMPLIC 10/05/2016 SRIDHAR BLACK INVESTMENT BROKER Ot I25.10 ATHSCL HEART DISEASE OF [place] CORONARY 10/05/2016 SRIDHAR BLACK INVESTMENT BROKER Ot 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 [place] 10/05/2016 SRIDHAR BLACK INVESTMENT BROKER Ot R06.02 SHORTNESS OF BREATH 10/05/2016 SRIDHAR BLACK INVESTMENT BROKER Ot R07.89 OTHER CHEST PAIN 10/05/2016 SRIDHAR BLACK INVESTMENT BROKER Ot T82.855A STENOSIS OF CORONARY ARTERY STENT, INITI 10/05/2016 SRIDHAR BLACK INVESTMENT BROKER Ot Z79.84 PROGRAM ENGINEER (CURRENT) USE OF ORAL HYPOGLYC 10/05/2016 SRIDHAR BLACK INVESTMENT BROKER Ot Z79.899 OTHER ALF (CURRENT) DRUG THERAPY 10/05/2016 SRIDHAR BLACK L INVESTMENT BROKER Ot Z82.49 FAMILY HX OF ISCHEM HEART DIS AND OTH DI 10/05/2016 SRIDHAR BLACK INVESTMENT BROKER Ot Z85.118 PERSONAL HISTORY OF MALIGNANT NEOPLASM O 10/05/2016 SRIDHAR BLACK INVESTMENT BROKER Ot Z87.891 PERSONAL HISTORY OF NICOTINE DEPENDENCE 10/05/2016 SRIDHAR BLACK INVESTMENT BROKER Ot Z90.2 ACQUIRED ABSENCE OF LUNG [PART OF] 10/05/2016 SRIDHAR BLACK INVESTMENT BROKER Ot Z92.21 PERSONAL HISTORY OF ANTINEOPLASTIC CHEMO 03/08/2017 Ot 786.50 CHEST PAIN NOS 03/08/2017 GABI VALENCIA MD Ot V54.01 ENCNTR FOR REMOVAL OF INTERNAL FIXATION 03/08/2017 GABI VALENCIA MD Ot V72.84 EXAM PRE-OPERATIVE NOS 03/08/2017 GABI VALENCIA MD Ot V74.8 SCREEN-BACTERIAL DIS NEC 03/08/2017 ESTEVAN FERRO, CHAPO Lares Ot 162.9 MAL LAURA BRONCH/LUNG NOS 03/08/2017 VISHNU STARKS INVESTMENT BROKER Ot 162.3 MAL LAURA UPPER LOBE LUNG 03/08/2017 VISHNU STARKS S INVESTMENT BROKER Ot 250.00 DIAB CHETNA WO COMPL, TYPE II OR UNSPEC TY 03/08/2017 VISHNU STARKS INVESTMENT BROKER Ot 272.4 HYPERLIPIDEMIA NEC/NOS 03/08/2017 VISHNU STARKS INVESTMENT BROKER Ot 414.00 CORON ATHEROSCLER NOS TYPE VESSEL, NATIV 03/08/2017 VISHNU STARKS INVESTMENT BROKER Ot 793.0 NOSP (ABN) FINDINGS ON RADIOLOGICAL OT 03/08/2017 VISHNU STARKS INVESTMENT BROKER Ot V45.82 PERCUTANEOUS TRANSLUM CORON ANGIOPLASTY 03/08/2017 VISHNU STARKS INVESTMENT BROKER Ot V58.69 OTH MED,LT,CURRENT USE 03/08/2017 JAMMIE NAVA MD Ot C34.10 MALIGNANT NEOPLASM OF UPPER LOBE, UNSP B 03/08/2017 JAMMIE NAVA MD Ot E11.9 TYPE 2 DIABETES MELLITUS WITHOUT COMPLIC 03/08/2017 JAMMIE NAVA MD Ot E78.5 HYPERLIPIDEMIA, UNSPECIFIED 03/08/2017 JAMMIE NAVA MD Ot I25.10 ATHSCL HEART DISEASE OF [place] CORONARY 03/08/2017 JAMMIE NAVA MD Ot Z51.11 ENCOUNTER FOR ANTINEOPLASTIC CHEMOTHERAP 03/08/2017 JAMMIE ANVA MD Ot Z79.899 OTHER ALF (CURRENT) DRUG THERAPY 03/08/2017 JAMMIE NAVA MD [...] CCDS Ot I25.10 ATHSCL HEART DISEASE OF [place] CORONARY 03/08/2017 AKANKSHA FERRO FACC, ALI FACP CCDS Ot R00.2 PALPITATIONS 03/08/2017 AKANKSHA FERRO FACC, ALI FACP CCDS Ot R06.02 SHORTNESS OF BREATH 03/08/2017 AKANKSHA FERRO FACC, ALI FACP CCDS Ot Z87.891 PERSONAL HISTORY OF NICOTINE DEPENDENCE 12/31/2017 GABI VALENCIA MD Ot V54.01 ENCNTR FOR REMOVAL OF INTERNAL FIXATION 12/31/2017 GABI VALENCIA MD Ot V72.84 EXAM PRE-OPERATIVE NOS 12/31/2017 GABI VALENCIA MD Ot V74.8 SCREEN-BACTERIAL DIS NEC 12/31/2017 ESTEVAN FERRO, CHAPO J Ot 162.9 MAL LAURA BRONCH/LUNG NOS 12/31/2017 VISHNU STARKS INVESTMENT BROKER Ot 162.3 MAL LAURA UPPER LOBE LUNG 12/31/2017 VISHNU STARKS INVESTMENT BROKER Ot 250.00 DIAB CHETNA WO COMPL, TYPE II OR UNSPEC TY 12/31/2017 VISHNU STARKS INVESTMENT BROKER Ot 272.4 HYPERLIPIDEMIA NEC/NOS 12/31/2017 VISHNU STARKS INVESTMENT BROKER Ot 414.00 CORON ATHEROSCLER NOS TYPE VESSEL, NATIV 12/31/2017 VISHNU STARKS INVESTMENT BROKER Ot 793.0 NOSP (ABN) FINDINGS ON RADIOLOGICAL OT 12/31/2017 VISHNU STARKS INVESTMENT BROKER Ot V45.82 PERCUTANEOUS TRANSLUM CORON ANGIOPLASTY 12/31/2017 VISHNU STARKS INVESTMENT BROKER Ot V58.69 OT MED,LT,CURRENT USE 12/31/2017 JAMMIE NAVA MD Ot C34.10 MALIGNANT NEOPLASM OF UPPER LOBE, UNSP B 12/31/2017 JAMMIE NAVA MD Ot E11.9 TYPE 2 DIABETES MELLITUS WITHOUT COMPLIC 12/31/2017 JAMMIE NAVA MD Ot E78.5 HYPERLIPIDEMIA, UNSPECIFIED 12/31/2017 JAMMIE NAVA MD Ot I25.10 ATHSCL HEART DISEASE OF [place] CORONARY 12/31/2017 JAMMIE NAVA MD Ot Z51.11 ENCOUNTER FOR ANTINEOPLASTIC CHEMOTHERAP 12/31/2017 JAMMEI NAVA MD Ot Z79.899 OTHER ALF (CURRENT) DRUG THERAPY 12/31/2017 JAMMIE NAVA MD, Ot Z98.61 CORONARY ANGIOPLASTY STATUS 12/31/2017 AKANKSHA FERRO FACC, ALI FACP CCDS Ot C34.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, LEFT B 12/31/2017 AKANKSHA FERRO FACC, ALI FACP CCDS Ot E13.9 OTHER SPECIFIED DIABETES MELLITUS WITHOU 12/31/2017 AKANKSHA FERRO FACC, ALI FACP CCDS Ot E78.4 OTHER HYPERLIPIDEMIA 12/31/2017 AKANKSHA FERRO FACC, ALI FACP CCDS Ot I25.10 ATHSCL HEART DISEASE OF [place] CORONARY 12/31/2017 AKANKSHA FERRO FACC, ALI FACP CCDS Ot R00.2 PALPITATIONS 12/31/2017 AKANKSHA FERRO FACC, ALI FACP CCDS Ot R06.02 SHORTNESS OF BREATH 12/31/2017 AKANKSHA FERRO FACC, ALI FACP CCDS Ot Z87.891 PERSONAL HISTORY OF NICOTINE DEPENDENCE 01/01/2018 SRAVAN LOVE MD Ot E11.9 TYPE 2 DIABETES MELLITUS WITHOUT COMPLIC 01/01/2018 SRAVAN LOVE MD Ot E78.00 PURE HYPERCHOLESTEROLEMIA, UNSPECIFIED 01/01/2018 SRAVAN LOVE MD Ot F17.210 NICOTINE DEPENDENCE, CIGARETTES, UNCOMPL 01/01/2018 SRAVAN LOVE MD Ot G45.9 TRANSIENT CEREBRAL ISCHEMIC ATTACK, UNSP 01/01/2018 SRAVAN LOVE MD Ot H91.90 UNSPECIFIED HEARING LOSS, UNSPECIFIED EA 01/01/2018 SRAVAN LOVE MD Ot I25.10 ATHSCL HEART DISEASE OF [place] CORONARY 01/01/2018 SRAVAN LOVE MD Ot I69.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 01/01/2018 SRAVAN LOVE MD Ot K21.9 GASTRO-ESOPHAGEAL REFLUX DISEASE WITHOUT 01/01/2018 SRAVAN LOVE MD Ot Z79.84 ALF (CURRENT) USE OF ORAL HYPOGLYC 01/01/2018 SRAVAN LOVE MD Ot Z79.899 OTHER PROGRAM ENGINEER (CURRENT) DRUG THERAPY 01/01/2018 SRAVAN LOVE MD Ot Z85.118 PERSONAL HISTORY OF MALIGNANT NEOPLASM O 01/01/2018 SRAVAN LOVE MD Ot Z92.21 PERSONAL HISTORY OF ANTINEOPLASTIC CHEMO 01/01/2018 SRAVAN LOVE MD Ot Z95.5 PRESENCE OF CORONARY ANGIOPLASTY IMPLANT 01/01/2018 SRAVAN LOVE MD Ot E11.9 TYPE 2 DIABETES MELLITUS WITHOUT COMPLIC 01/01/2018 SRAVAN LOVE MD Ot E78.00 PURE HYPERCHOLESTEROLEMIA, UNSPECIFIED 01/01/2018 SRAVAN LOVE MD Ot F17.210 NICOTINE DEPENDENCE, CIGARETTES, UNCOMPL 01/01/2018 SRAVAN LOVE MD Ot G45.9 TRANSIENT CEREBRAL ISCHEMIC ATTACK, UNSP 01/01/2018 SRAVAN LOVE MD Ot H91.90 UNSPECIFIED HEARING LOSS, UNSPECIFIED EA 01/01/2018 SRAVAN LOVE MD Ot I25.10 ATHSCL HEART DISEASE OF [place] CORONARY 01/01/2018 SRAVAN LOVE MD Ot I69.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 01/01/2018 SRAVAN LOVE MD Ot K21.9 GASTRO-ESOPHAGEAL REFLUX DISEASE WITHOUT 01/01/2018 SRAVAN LOVE MD Ot Z79.84 PROGRAM ENGINEER (CURRENT) USE OF ORAL HYPOGLYC 01/01/2018 SRAVAN LOVE MD Ot Z79.899 OTHER PROGRAM ENGINEER (CURRENT) DRUG THERAPY 01/01/2018 SRAVAN LOVE MD Ot Z85.118 PERSONAL HISTORY OF MALIGNANT NEOPLASM O 01/01/2018 SRAVAN LOVE MD Ot Z92.21 PERSONAL HISTORY OF ANTINEOPLASTIC CHEMO 01/01/2018 SRAVAN LOVE MD Ot Z95.5 PRESENCE OF CORONARY ANGIOPLASTY IMPLANT 01/03/2018 SRAVAN LOVE MD Ot E11.9 TYPE 2 DIABETES MELLITUS WITHOUT COMPLIC 01/03/2018 SRAVAN LOVE MD Ot E78.00 PURE HYPERCHOLESTEROLEMIA, UNSPECIFIED 01/03/2018 SRAVAN LOVE MD Ot F17.210 NICOTINE DEPENDENCE, CIGARETTES, UNCOMPL 01/03/2018 SRAVAN LOVE MD Ot G45.9 TRANSIENT CEREBRAL ISCHEMIC ATTACK, UNSP 01/03/2018 SRAVAN LOVE MD Ot H91.90 UNSPECIFIED HEARING LOSS, UNSPECIFIED EA 01/03/2018 SRAVAN LOVE MD Ot I25.10 ATHSCL HEART DISEASE OF [place] CORONARY 01/03/2018 SRAVAN LOVE MD Ot I69.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 01/03/2018 SRAVAN LOVE MD Ot K21.9 GASTRO-ESOPHAGEAL REFLUX DISEASE WITHOUT 01/03/2018 SRAVAN LOVE MD Ot Z79.84 ALF (CURRENT) USE OF ORAL HYPOGLYC 01/03/2018 SRAVAN LOVE MD Ot Z79.899 OTHER ALF (CURRENT) DRUG THERAPY 01/03/2018 SRAVAN LOVE MD Ot Z85.118 PERSONAL HISTORY OF MALIGNANT NEOPLASM O 01/03/2018 SRAVAN LOVE MD Ot Z92.21 PERSONAL HISTORY OF ANTINEOPLASTIC CHEMO 01/03/2018 SRAVAN LOVE MD Ot Z95.5 PRESENCE OF CORONARY ANGIOPLASTY IMPLANT 01/03/2018 SRAVAN LOVE MD Ot E11.9 TYPE 2 DIABETES MELLITUS WITHOUT COMPLIC 01/03/2018 SRAVAN LOVE MD Ot E78.00 PURE HYPERCHOLESTEROLEMIA, UNSPECIFIED 01/03/2018 SRAVAN LOVE MD Ot F17.210 NICOTINE DEPENDENCE, CIGARETTES, UNCOMPL 01/03/2018 SRAVAN LOVE MD Ot G45.9 TRANSIENT CEREBRAL ISCHEMIC ATTACK, UNSP 01/03/2018 SRAVAN LOVE MD Ot H91.90 UNSPECIFIED HEARING LOSS, UNSPECIFIED EA 01/03/2018 SRAVAN LOVE MD Ot I25.10 ATHSCL HEART DISEASE OF [place] CORONARY 01/03/2018 SRAVAN LOVE MD Ot I69.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 01/03/2018 SRAVAN LOVE MD Ot K21.9 GASTRO-ESOPHAGEAL REFLUX DISEASE WITHOUT 01/03/2018 SRAVAN LOVE MD Ot Z79.84 ALF (CURRENT) USE OF ORAL HYPOGLYC 01/03/2018 SRAVAN LOVE MD, Ot Z79.899 OTHER PROGRAM ENGINEER (CURRENT) DRUG THERAPY 01/03/2018 SRAVAN LOVE MD, Ot Z85.118 PERSONAL HISTORY OF MALIGNANT NEOPLASM O 01/03/2018 SRAVAN LOVE MD Ot Z92.21 PERSONAL HISTORY OF ANTINEOPLASTIC CHEMO 01/03/2018 SRAVAN LOVE MD, Ot Z95.5 PRESENCE OF CORONARY ANGIOPLASTY IMPLANT 03/05/2018 GABI VALENCIA MD Ot V54.01 ENCNTR FOR REMOVAL OF INTERNAL FIXATION 03/05/2018 GABI VALENCIA MD Ot V72.84 EXAM PRE-OPERATIVE NOS 03/05/2018 GABI VALENCIA MD, Ot V74.8 SCREEN-BACTERIAL DIS NEC 03/05/2018 ESTEVAN FERRO, CHAPO J Ot 162.9 MAL LAURA BRONCH/LUNG NOS 03/05/2018 VISHNU STARKS INVESTMENT BROKER Ot 162.3 MAL LAURA UPPER LOBE LUNG 03/05/2018 VISHNU STARKS INVESTMENT BROKER Ot 250.00 DIAB CHETNA WO COMPL, TYPE II OR UNSPEC TY 03/05/2018 VISHNU STARKS INVESTMENT BROKER Ot 272.4 HYPERLIPIDEMIA NEC/NOS 03/05/2018 VISHNU STARKS INVESTMENT BROKER Ot 414.00 CORON ATHEROSCLER NOS TYPE VESSEL, NATIV 03/05/2018 VISHNU STARKS INVESTMENT BROKER Ot 793.0 NOSP (ABN) FINDINGS ON RADIOLOGICAL OT 03/05/2018 VISHNU STARKS INVESTMENT BROKER Ot V45.82 PERCUTANEOUS TRANSLUM CORON ANGIOPLASTY 03/05/2018 VISHNU STARKS INVESTMENT BROKER Ot V58.69 OTH MED,LT,CURRENT USE 03/05/2018 JAMMIE NAVA MD Ot C34.10 MALIGNANT NEOPLASM OF UPPER LOBE, UNSP B 03/05/2018 JAMMIE NAVA MD Ot E11.9 TYPE 2 DIABETES MELLITUS WITHOUT COMPLIC 03/05/2018 JAMMIE NAVA MD Ot E78.5 HYPERLIPIDEMIA, UNSPECIFIED 03/05/2018 JAMMIE NAVA MD Ot I25.10 ATHSCL HEART DISEASE OF [place] CORONARY 03/05/2018 JAMMIE NAVA MD Ot Z51.11 ENCOUNTER FOR ANTINEOPLASTIC CHEMOTHERAP 03/05/2018 JAMMIE NAVA MD, Ot Z79.899 OTHER ALF (CURRENT) DRUG THERAPY 03/05/2018 JAMMIE NAVA MD, Ot Z98.61 CORONARY ANGIOPLASTY STATUS 03/05/2018 AKANKSHA FERRO FACC, ALI FACP CCDS Ot C34.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, LEFT B 03/05/2018 AKANKSHA FERRO FACC, ALI FACP CCDS Ot E13.9 OTHER SPECIFIED DIABETES MELLITUS WITHOU 03/05/2018 AKANKSHA FERRO FACC, ALI FACP CCDS Ot E78.4 OTHER HYPERLIPIDEMIA 03/05/2018 AKANKSHA FERRO FACC, ALI FACP CCDS Ot I25.10 ATHSCL HEART DISEASE OF [place] CORONARY 03/05/2018 AKANKSHA FERRO FACC, ALI FACP CCDS Ot R00.2 PALPITATIONS 03/05/2018 AKANKSHA FERRO FACC, ALI FACP CCDS Ot R06.02 SHORTNESS OF BREATH 03/05/2018 AKANKSHA FERRO FACC, ALI FACP CCDS Ot Z87.891 PERSONAL HISTORY OF NICOTINE DEPENDENCE 03/07/2018 LISSA OATES FANCY PACKER Ot G47.30 SLEEP APNEA, UNSPECIFIED 03/07/2018 LISSA OATES FANCY PACKER Ot J44.9 CHRONIC OBSTRUCTIVE PULMONARY DISEASE, U 03/07/2018 LISSA OATES FANCY PACKER Ot R06.02 SHORTNESS OF BREATH 03/07/2018 LISSA OATES FANCY PACKER Ot Z72.0 TOBACCO USE 03/07/2018 LISSA OATES FANCY PACKER Ot Z85.118 PERSONAL HISTORY OF MALIGNANT NEOPLASM O 03/12/2018 LISSA OATES FANCY PACKER Ot C34.90 MALIGNANT NEOPLASM OF [facility]SP [facility] 03/12/2018 LISSA OATES FANCY PACKER Ot G47.30 SLEEP APNEA, UNSPECIFIED 03/12/2018 LISSA OATES FANCY PACKER Ot J43.9 EMPHYSEMA, UNSPECIFIED 03/12/2018 LISSA OATES FANCY PACKER Ot K76.0 FATTY (CHANGE OF) LIVER, NOT ELSEWHERE C 03/12/2018 LISSA OATES FANCY PACKER Ot Z72.0 TOBACCO USE 03/12/2018 LISSA OATES FANCY PACKER Ot C34.90 MALIGNANT NEOPLASM OF UNSP PART OF UNSP 03/12/2018 LISSA OATES FANCY PACKER Ot G47.30 SLEEP APNEA, UNSPECIFIED 03/12/2018 LISSA OATES FANCY PACKER Ot J43.9 EMPHYSEMA, UNSPECIFIED 03/12/2018 LISSA OATES APRN Ot K76.0 FATTY (CHANGE OF) LIVER, NOT ELSEWHERE C 03/12/2018 LISSA OATES APRN Ot Z72.0 TOBACCO USE Procedures Code Description [place] [address] XRAY CHEST 2 VIEW 05/24/2012 Cardiolog Bradly Begum 05/24/2012 40935 ROUTINE VENIPUNCTURE 06/05/2012 89610 A1C (IN-HOUSE) 06/05/2012 10194 CBC 06/05/2012 66193 LIVER PANEL (LFT) 06/05/2012 12069 CMP 06/05/2012 1353586 GFR CALC (RESULT ONLY) 06/05/2012 27775 ROUTINE VENIPUNCTURE 06/07/2012 17603 CBC 06/07/2012 05136 CMP 06/07/2012 38597 LIPID PANEL 06/07/2012 44372 MAGNESIUM 06/07/2012 8565251 GFR CALC (RESULT ONLY) 06/07/2012 21230 TSH 06/07/2012 70904 LIPASE 06/07/2012 28323 BNP 06/07/2012 14708 PSA FREE AND TOTAL 06/07/2012 96629 EKG, TRACING (IN-HOUSE) 06/09/2012 12494 ECHO 2D 06/09/2012 79529 OXIMETRY 06/09/2012 65139 BMP 07/03/2012 09104 CMP 07/03/2012 38556 LIPID PANEL 07/03/2012 09586 A1C (IN-HOUSE) 07/03/2012 03384 HEMOGLOBIN (IN-HOUSE) 07/03/2012 48874 CBC 07/03/2012 68520 ROUTINE VENIPUNCTURE 08/05/2012 22745 EKG, TRACING (IN-HOUSE) 08/05/2012 78821 HEMOGLOBIN (IN-HOUSE) 08/05/2012 62574 A1C (IN-HOUSE) 08/05/2012 15690 CBC 08/05/2012 66313 CMP 08/05/2012 42393 LIPID PANEL 08/05/2012 70068 A1C (IN-HOUSE) 08/23/2012 Jeri Andrade 08/23/2012 Storm Ross 09/06/2012 87666 A1C (IN-HOUSE) 11/29/2012 70182 ROUTINE VENIPUNCTURE 02/07/2013 5429297 GFR CALC (RESULT ONLY) 02/07/2013 74349 CMP 02/07/2013 35375 LIPID PANEL 02/07/2013 29132 A1C (IN-HOUSE) 03/21/2013 17441 ROUTINE VENIPUNCTURE 03/26/2013 41659 OXIMETRY 03/26/2013 9993787 IMMATURE PLATELET FRACTION (RESULT ONLY) 03/27/2013 35142 DIFFERENTIAL WBC COUNT (CBC DIFF RESULT) 03/27/2013 06402 RETICULOCYTE COUNT 03/27/2013 14009 PERIPHERIAL BLOOD SMEAR 03/27/2013 4683503 COMPLETE BLOOD COUNT NO DIFF (CBC Result) 03/27/2013 7423466 HEMATOLOGY OTHER REPORT 03/27/2013 21416 ROUTINE VENIPUNCTURE 06/09/2013 3225128 GFR CALC (RESULT ONLY) 06/09/2013 40799 CMP 06/09/2013 86195 LIPID PANEL 06/09/2013 31368 A1C (IN-HOUSE) 06/23/2013 45247 ROUTINE VENIPUNCTURE 09/17/2013 0293010 GFR CALC (RESULT ONLY) 09/17/2013 40354 CMP 09/17/2013 02767 LIPID PANEL 09/17/2013 90959 OXIMETRY 09/24/2013 47664 A1C (IN-HOUSE) 02/18/2014 08088 ROUTINE VENIPUNCTURE 02/18/2014 55790 MICRO ALBUMIN-IN HOUSE 02/18/2014 33446 LIPID PANEL 02/18/2014 51654 LIVER PANEL (LFT) 02/18/2014 20405 URIC ACID 02/18/2014 Results Test Result Range [...] or plasma urea nitrogen/creatinine mass ratio 16 NR Serum or plasma creatinine measurement with calculation of estimated glomerular filtration rate > [facility] Serum or plasma glucose measurement (mass/volume) 102 [...] resistant Staphylococcus aureus (MRSA) screening culture NEG [facility] Comprehensive metabolic panel - 12/31/17 13:20 Serum or plasma sodium measurement (moles/volume) 140 mmol/L 135-145 Serum or plasma potassium measurement (moles/volume) 4.2 mmol/L 3.6-5.0 Serum or plasma chloride measurement (moles/volume) 107 mmol/L 98-107 Carbon dioxide 25 mmol/L 21-32 Serum or plasma anion gap determination (moles/volume) 8 mmol/L 5-14 Serum or plasma urea nitrogen measurement (mass/volume) 13 mg/dL 7-18 Serum or plasma creatinine measurement (mass/volume) 1.14 mg/dL 0.60-1.30 Serum or plasma urea nitrogen/creatinine mass ratio 11 NRG Serum or plasma creatinine measurement with calculation of estimated glomerular filtration rate > NRG Serum or plasma glucose measurement (mass/volume) 134 mg/dL 70-105 Serum or plasma calcium measurement (mass/volume) 9.3 mg/dL 8.5-10.1 Serum or plasma total bilirubin measurement (mass/volume) 0.3 mg/dL 0.1-1.0 Serum or plasma alkaline phosphatase measurement (enzymatic activity/volume) 131 U/L 40-136 Serum or plasma aspartate aminotransferase measurement (enzymatic activity/ volume) 21 U/L 5-34 Serum or plasma alanine aminotransferase measurement (enzymatic activity/volume ) 25 U/L 0-55 Serum or plasma protein measurement (mass/volume) 7.2 g/dL 6.4-8.2 Serum or plasma albumin measurement (mass/volume) 4.1 g/dL 3.2-4.5 CALCIUM CORRECTED 9.2 mg/dL 8.5-10.1 PT panel in platelet poor plasma by coagulation assay - 12/31/17 13:20 Prothrombin time (PT) in platelet poor plasma by coagulation assay 12.5 s 12.2-14.7 INR in platelet poor plasma or blood by coagulation assay 0.9 0.8-1.4 Activated partial thromboplastin time (aPTT) in platelet poor plasma bycoagulation assay - 12/31/17 13:20 Activated partial thromboplastin time (aPTT) in platelet poor plasma bycoagulation assay 25 s 24-35 Fibrin D-dimer FEU measurement in platelet poor plasma (mass/volume) - 13:20 Fibrin D-dimer FEU measurement in platelet poor plasma (mass/volume) < ug/mL 0.00-0.49 Serum or plasma troponin i.cardiac measurement (mass/volume) - 12/31/17 13:20 Serum or plasma troponin i.cardiac measurement (mass/volume) < ng/ mL <0.30 Capillary blood glucose measurement by glucometer (mass/volume) - 12/31/17 13: 47 Capillary blood glucose measurement by glucometer (mass/volume) 149 mg/dL 70-110 Methicillin resistant Staphylococcus aureus (MRSA) screening culture - 18:00 Methicillin resistant Staphylococcus aureus (MRSA) screening culture NEG NRG Complete blood count (CBC) with automated white blood cell (WBC) differential - 01/01/18 02:55 Blood leukocytes automated count (number/volume) 8.4 10*3/uL 4.3-11.0 Blood erythrocytes automated count (number/volume) 4.85 10*6/uL 4.35-5.85 Venous blood hemoglobin measurement (mass/volume) 14.5 g/dL 13.3-17.7 Blood hematocrit (volume fraction) 43 % 40-54 Automated erythrocyte mean corpuscular volume 89 [foz_us] 80-99 Automated erythrocyte mean corpuscular hemoglobin (mass per erythrocyte) 30 pg 25-34 Automated erythrocyte mean corpuscular hemoglobin concentration measurement ( mass/volume) 34 g/dL 32-36 Automated erythrocyte distribution width ratio 16.1 % 10.0-14.5 Automated blood platelet count (count/volume) 218 10*3/uL 130-400 Automated blood platelet mean volume measurement 11.2 [foz_us] 7.4-10.4 Automated blood neutrophils/100 leukocytes 47 % 42-75 Automated blood lymphocytes/100 leukocytes 38 % 12-44 Blood monocytes/100 leukocytes 11 % 0-12 Automated blood eosinophils/100 leukocytes 4 % 0-10 Automated blood basophils/100 leukocytes 1 % 0-10 Blood neutrophils automated count (number/volume) 4.0 10*3 1.8-7.8 Blood lymphocytes automated count (number/volume) 3.1 10*3 1.0-4.0 Blood monocytes automated count (number/volume) 1.0 10*3 0.0-1.0 Automated eosinophil count 0.3 10*3/uL 0.0-0.3 Automated blood basophil count (count/volume) 0.1 10*3/uL 0.0-0.1 Comprehensive metabolic panel - 01/01/18 02:55 Serum or plasma sodium measurement (moles/volume) 141 mmol/L 135-145 Serum or plasma potassium measurement (moles/volume) 4.1 mmol/L 3.6-5.0 Serum or plasma chloride measurement (moles/volume) 109 mmol/L 98-107 Carbon dioxide 19 mmol/L 21-32 Serum or plasma anion gap determination (moles/volume) 13 mmol/L 5-14 Serum or plasma urea nitrogen measurement (mass/volume) 13 mg/dL 7-18 Serum or plasma creatinine measurement (mass/volume) 0.95 mg/dL 0.60-1.30 Serum or plasma urea nitrogen/creatinine mass ratio 14 NRG Serum or plasma creatinine measurement with calculation of estimated glomerular filtration rate > NRG Serum or plasma glucose measurement (mass/volume) 111 mg/dL 70-105 Serum or plasma calcium measurement (mass/volume) 9.0 mg/dL 8.5-10.1 Serum or plasma total bilirubin measurement (mass/volume) 0.4 mg/dL 0.1-1.0 Serum or plasma alkaline phosphatase measurement (enzymatic activity/volume) 110 U/L 40-136 Serum or plasma aspartate aminotransferase measurement (enzymatic activity/ volume) 21 U/L 5-34 Serum or plasma alanine aminotransferase measurement (enzymatic activity/volume ) 25 U/L 0-55 Serum or plasma protein measurement (mass/volume) 5.8 g/dL 6.4-8.2 Serum or plasma albumin measurement (mass/volume) 3.5 g/dL 3.2-4.5 CALCIUM CORRECTED 9.4 mg/dL 8.5-10.1 Serum or plasma phosphate measurement (mass/volume) - 01/01/18 02:55 Serum or plasma phosphate measurement (mass/volume) 3.8 mg/dL 2.3-4.7 Magnesium - 01/01/18 02:55 Magnesium 2.0 mg/dL 1.8-2.4 Lipid 1996 panel - 01/01/18 02:55 Serum or plasma triglyceride measurement (mass/volume) 261 mg/dL <150 Serum or plasma cholesterol measurement (mass/volume) 141 mg/dL < 200 Serum or plasma cholesterol in HDL measurement (mass/volume) 28 mg/ dL 40-60 Cholesterol in LDL [mass/volume] in serum or plasma by direct assay 88 mg/dL 1-129 Serum or plasma cholesterol in VLDL measurement (mass/volume) 52 mg/ dL 5-40 PANEL (PROFILE 1) - 01/10/18 10:09 Prescribed Drug 1 Lyrica(TM) NRG Creatinine 36.1 mg/dL > or=20.0 pH 6.54 4.5 - 9.0 Oxidant NEGATIVE mcg/mL <200 Amphetamines NEGATIVE ng/mL <500 medMATCH Amphetamines CONSISTENT NRG Benzodiazepines NEGATIVE ng/mL <100 medMATCH Benzodiazepines CONSISTENT NRG Marijuana Metabolite NEGATIVE ng/mL <20 medMATCH Marijuana Metab CONSISTENT NRG Cocaine Metabolite NEGATIVE ng/mL <150 medMATCH Cocaine Metab CONSISTENT NRG Opiates NEGATIVE ng/mL <100 medMATCH Opiates CONSISTENT NRG Oxycodone NEGATIVE ng/mL <100 medMATCH Oxycodone CONSISTENT NRG COMMENT NRG Barbiturates NEGATIVE ng/mL <300 medMATCH Barbiturates CONSISTENT NRG Methadone Metabolite NEGATIVE ng/mL <100 medMATCH Methadone Metab CONSISTENT NRG Phencyclidine NEGATIVE ng/mL <25 medMATCH Phencyclidine CONSISTENT NRG MAGNESIUM SERUM - 03/01/18 07:59 MAGNESIUM 1.8 mg/dL 1.5-2.5 Arterial blood gas measurement - 03/05/18 11:15 Blood pCO2 35 mm[Hg] 35-45 Blood pO2 65 mm[Hg] 79-93 Arterial blood bicarbonate measurement (moles/volume) 23 mmol/L 23-27 Arterial blood base excess by calculation -0.8 mmol/L - 2.5-2.5 Arterial blood oxygen saturation measurement 94 % 94-100 * Inhaled oxygen flow rate ROOM AIR NRG Arterial blood pH measurement with patient temperature correction 7.43 7.37-7.43 Arterial blood carbon dioxide, total measurement (moles/volume) 24.1 mmol/L 21.0-31.0 Body site RT BRACHIAL NRG Assessment of wrist artery patency prior to arterial puncture YES- POS NRG Setting of ventilation mode NO NRG Measurement of body temperature 97.8 NRG Encounters ACCT No. Visit Date/Time Discharge Status Pt. Type Provider Facility Loc./Unit Complaint [id number] 02/18/2014 11:25:00 02/18/2014 23:59:59 CLS Outpatient JAYE RIGGS APRN [id number] 09/24/2013 08:52:00 09/24/2013 23:59:59 CLS Outpatient KANA IRMA CALI Josafat [id number] 09/17/2013 08:27:00 09/17/2013 23:59:59 CLS Outpatient JAYE RIGGS APRN [id number] 06/23/2013 10:57:00 06/23/2013 23:59:59 CLS Outpatient JAYE RIGGS APRN [id number] 06/09/2013 07:54:00 06/09/2013 23:59:59 CLS Outpatient JAYE RIGGS APRN [id number] 04/14/2013 10:21:00 04/14/2013 23:59:59 CLS Outpatient DARSHAN RODRIGUEZ MD [id number] 03/26/2013 09:21:00 03/26/2013 23:59:59 CLS Outpatient DARSHAN RODRIGUEZ MD [id number] 03/21/2013 14:10:00 03/21/2013 23:59:59 CLS Outpatient DARSHAN RODRIGUEZ MD [id number] 02/07/2013 10:19:00 02/07/2013 23:59:59 CLS Outpatient JAYE RIGGS APRN [id number] 07/03/2012 09:00:00 07/03/2012 23:59:59 CLS Outpatient [id number] 06/14/2012 10:00:00 06/14/2012 23:59:59 CLS Outpatient JAYE RIGGS APRN [id number] 06/07/2012 08:04:00 06/07/2012 23:59:59 CLS Outpatient JAYE RIGGS APRN [id number] 05/24/2012 09:01:00 05/24/2012 23:59:59 CLS Outpatient [id number] 11/29/2012 09:05:00 Document Registration [id number] 10/17/2012 13:38:00 Document Registration [id number] 09/06/2012 11:40:00 Document Registration [id number] 08/23/2012 08:42:00 Document Registration [id number] 08/05/2012 08:02:00 Document Registration [id number] 01/27/2015 10:10:15 ACT Document Registration [id number] 11/06/2017 13:20:00 11/06/2017 23:59:59 CLS Outpatient JAYE RIGGS APRN [facility] [id number] 03/01/2018 08:00:00 Document Registration [id number] 01/10/2018 09:20:00 Document Registration [id number] 03/05/2018 12:16:00 03/05/2018 23:59:59 CLS Preadmit LISSA OATES APRN [facility] PULM COPD,HISTORY OF LUNG CANCER,SOB,TOBACCO USER [id number] 03/05/2018 12:14:00 03/05/2018 23:59:59 CLS Outpatient LISSA OATES APRN [facility] RAD COPD,HISTORY OF LUNG CANCER,SOB,TOBACCO USER [id number] 03/05/2018 10:37:00 03/05/2018 23:59:59 CLS Outpatient LASHONLISSA APRN [facility] RT J44.9,Z85.118 [id number] 12/31/2017 15:45:00 01/01/2018 14:05:00 DIS Inpatient SRAVAN LOVE MD [facility] ICU CVA POSSIBLE [id number] 09/21/2016 13:34:00 09/21/2016 23:59:59 CLS Outpatient AKANKSHA FERRO FACC, ALI FACP CCDS [facility] CARD I25.10,E13.9 [id number] 09/12/2016 08:59:00 09/12/2016 18:00:00 DIS Outpatient SRIDHAR BLACK [facility] CATH CAD,DM,HL [id number] 09/07/2016 15:57:00 09/07/2016 23:59:59 CLS Preadmit AKANKSHA FERRO FACC, ALI FACJericho CCDS [facility] RT I25.10,E13.9 [id number] 07/31/2016 10:29:00 07/31/2016 13:50:00 DIS Outpatient MILE CHOWDHURY DO [facility] SDC HISTORY LUNG CA [id number] 07/28/2016 09:18:00 07/28/2016 13:24:00 DIS Outpatient MILE CHOWDHURY DO [facility] PREOP PORT REMOVAL [id number] 04/28/2015 00:10:00 04/28/2015 23:59:59 CLS Preadmit JAMMIE NAVA MD [facility] ONC [id number] 04/14/2015 14:37:00 04/27/2015 00:01:00 DIS Outpatient JAMMIE NAVA MD [facility] ONC [id number] 01/20/2015 12:38:00 01/20/2015 00:01:00 DIS Outpatient JAMMIE NAVA MD [facility] ONC [id number] 12/16/2014 08:58:00 12/16/2014 23:59:59 CLS Outpatient VISHNU STARKS [facility] ONC [id number] 11/10/2014 14:23:00 11/10/2014 23:59:59 CLS Outpatient CHAPO BARRETO MD [facility] RAD NEOPLASM, [id number] 09/01/2014 12:50:00 09/03/2014 14:00:00 DIS Outpatient DARSHAN RODRIGUEZ MD [facility] CHEST PAIN R LUNG MASS [id number] 12/30/2012 06:03:00 12/30/2012 10:10:00 DIS Outpatient GABI VALENCIA MD [facility] HEALED FRACTURE RIGHT TIBIA WITH RETAINED HARDWARE [id number] 12/25/2012 07:40:00 12/25/2012 23:59:59 CLS Outpatient GABI VALENCIA MD [facility] PREOP HEALED FRACTURE RIGHT TIBIA WITH RETAINED HARDWARE [id number] 03/12/2018 07:37:00 ACT Outpatient AKANKSHA FERRO FACC, DELBERT GOEL CCDS [facility] H/O TIA,PALPITATIONS,SOB,CAD [id number] 09/01/2014 12:38:00 Document Registration [id number] 09/01/2014 12:38:00 Document Registration [id number] 06/06/2012 10:32:00 Document Registration [id number] 08/29/2011 20:50:00 Document Registration [id number] 11/16/2010 05:38:00 Document Registration [id number] 11/08/2010 06:44:00 Document Registration [id number] 07/07/2016 13:06:00 Document Registration
[2018-03-12 08:09] VITALS: BP 113/80
--- NOTE | 2018-03-12 17:01 | OPERATIVE REPORT ---
DATE OF SERVICE: 03/12/2018 CLINICAL DIAGNOSES: Transient ischemic attack, palpitations. PROCEDURE: Implantable loop recorder implantation. DESCRIPTION OF PROCEDURE: The patient is a 63-year-old man who has recently had an episode of a transient ischemic attack. He also has a history of palpitations. Occult atrial fibrillation is suspected. Implantable loop recorder implantation is being carried out after having obtained an informed consent. [facility]. The left prepectoral area was prepared and draped in the usual sterile fashion. Lidocaine 1% with local anesthesia. The tools provided with the [employer] Reveal LINQ device was used to make a subcutaneous pocket anterior to the fourth intercostal space on the left side in which the device was placed. The serial number of the device is [id number]. The edges of the incision were closed with Dermabond and Steri-Strips. Job ID: [id number] DocumentID: [id number] Dictated Date: 03/12/2018 09:41:01 Sea Kayaking Guide Date: 03/12/2018 17:00:18 Dictated By: DELBERT VALE MD, MA, FACP, FACC,
== END | disposition home or self-care (01) ==
LOC: CATH 07:37
PROVIDERS: ATTEND Internal Medicine Cardiovascular Disease
DX: R00.2 Palpitations (principal); I25.10 Atherosclerotic heart disease of native coronary artery without angina pectoris; E11.9 Type 2 diabetes mellitus without complications; K21.9 Gastro-esophageal reflux disease without esophagitis; G47.33 Obstructive sleep apnea (adult) (pediatric); Z86.73 Personal history of transient ischemic attack (TIA), and cerebral infarction without residual deficits; Z79.82 Long term (current) use of aspirin; Z79.84 Long term (current) use of oral hypoglycemic drugs; Z79.899 Other long term (current) drug therapy; Z87.891 Personal history of nicotine dependence; Z95.5 Presence of coronary angioplasty implant and graft; Z85.118 Personal history of other malignant neoplasm of bronchus and lung; Z82.49 Family history of ischemic heart disease and other diseases of the circulatory system
CPT/HCPCS: 33282

== ENCOUNTER 2018-03-29 11:14 | Outpatient (CLI) | payer OTHER ==
[~2018-03-29] VITALS: Ht 180.3 cm; Wt 104.6 kg
[~2018-03-29 11:14] MED LIST changes: -LIDOCAINE 1% INJ 20 ML 20 ML VIAL ONE
[2018-03-29] MEDS ORDERED: ASPI1CPM6 PO (11:47)
[2018-03-29] MEDS ORDERED: VARE1TAB22 PO (11:47)
[2018-03-29 11:53] VITALS: BP 116/81
[2018-03-29 12:31] LABS: BASOPHILS # (AUTO) 0.1 10^3/uL (0.0-0.1); BASOPHILS % (AUTO) 1 % (0-10); EOSINOPHILS # (AUTO) 0.3 10^3/uL (0.0-0.3); EOSINOPHILS % (AUTO) 3 % (0-10); HEMATOCRIT 47 % (40-54); HEMOGLOBIN 15.9 G/DL (13.3-17.7); LYMPHOCYTES # (AUTO) 2.5 X 10^3 (1.0-4.0); LYMPHOCYTES % (AUTO) 26 % (12-44); MEAN CORPUSCULAR HEMOGLOBIN 29 PG (25-34); MEAN CORPUSCULAR HGB CONC 34 G/DL (32-36); MEAN CORPUSCULAR VOLUME 86 FL (80-99); MEAN PLATELET VOLUME 11.4 FL (7.4-10.4); MONOCYTES % (AUTO) 11 % (0-12); NEUTROPHILS # (AUTO) 5.8 X 10^3 (1.8-7.8); NEUTROPHILS % (AUTO) 60 % (42-75); PLATELET COUNT 215 10^3/uL (130-400); RED CELL DISTRIBUTION WIDTH 14.9 % (10.0-14.5); WHITE BLOOD COUNT 9.7 10^3/uL (4.3-11.0)
[2018-03-29 12:42] LABS: BUN/CREATININE RATIO 20; CALCIUM 9.7 MG/DL (8.5-10.1); CARBON DIOXIDE 24 MMOL/L (21-32); CHLORIDE 103 MMOL/L (98-107); CREATININE SERUM 0.96 MG/DL (0.60-1.30); GFR ESTIMATED > 60; GLUCOSE 107 MG/DL (70-105); SODIUM 138 MMOL/L (135-145)
== END 2018-03-29 15:11 | disposition home or self-care (01) ==
LOC: PREOP 11:14
PROVIDERS: ATTEND Otolaryngology Otolaryngology/Facial Plastic Surgery
DX: Z01.812 Encounter for preprocedural laboratory examination (principal); Z11.2 Encounter for screening for other bacterial diseases; D11.9 Benign neoplasm of major salivary gland, unspecified
CPT/HCPCS: 36415; 80048; 85025; 87081

== ENCOUNTER 2018-04-05 07:31 | Day surgery (SDC) | payer OTHER ==
[~2018-04-05] VITALS: Ht 180.3 cm; Wt 104.6 kg
[~2018-04-05 07:31] MED LIST changes: +ASPI1CPM6 PO; +VARE1TAB22 PO
--- OUTSIDE RECORDS SUMMARY | 2018-04-05 07:36 | XMS REPORT ---
Author Author JAYE RIGGS [facility] Address [address] [place] [address] Care Team Providers Care E Commerce Director Name Role Phone JAYE RIGGS Unavailable PROBLEMS Type Condition ICD9-CM Code CWL88-OF Code Onset Dates Condition Status SNOMED Code Problem Tinnitus of left ear H93.12 Active 0268955054724 Problem Type 2 diabetes mellitus with hyperglycemia E11.65 Active 025882863085102 Problem Tinnitus of both ears H93.13 Active 1516646357843 Problem Gastroesophageal reflux disease with esophagitis K21.0 Active 551748244 Problem Altered mental status R41.82 Active 416271480 Problem Observed sleep apnea G47.30 Active 22576152 Problem Type 2 diabetes mellitus with other diabetic neurological complication E11.49 Active 43683725 Problem Cerebrovascular accident (CVA) due to embolism of other cerebral artery I63.49 Active 798258680 Problem Type 2 diabetes mellitus with diabetic neuropathy, without long-term current use of insulin E11.40 Active 45053153 Problem Essential (primary) hypertension I10 Active 89925893 Problem Type 2 diabetes mellitus without complications E11.9 Active 130401231 Problem Elevated white blood cell count, unspecified D72.829 Active 001092615 Problem Neuropathy G62.9 Active 119487141 Problem Controlled type 2 diabetes mellitus without complication, without long -term current use of insulin E11.9 Active 606667401 Problem Atherosclerotic heart disease of [place] coronary artery without angina pectoris I25.10 Active 138455462954389 Problem Seasonal allergic rhinitis due to other allergic trigger J30.89 Active 977196487 Problem Type 2 diabetes mellitus with foot ulcer E11.621 Active 153684296 Problem Bilateral tinnitus H93.13 Active [id number] ALLERGIES No Information ENCOUNTERS Encounter Location Date Diagnosis [facility] [address] [facility] [id number] [address] Mar, [facility] [address] [place] [id number] [place] [address]76- 1653 Feb, Neuropathy G62.9 [place] [address] [place] [id number] [place] [address] 53029- 5450 13 Feb, 2018 Actinic keratoses L57.0 [place] [address] [id number] [place] [address] 55608- 3933 09 Feb, 2018 Type 2 diabetes mellitus without complications E11.9 ; Tobacco abuse Z72.0 ; Tobacco abuse counseling Z71.6 and Atherosclerotic heart disease of [place] coronary artery without angina pectoris I25.10 [place] [address] [id number] [place] [address] 34830- 1679 08 Feb, 2018 Type 2 diabetes mellitus without complications E11.9 ; Tobacco abuse Z72.0 ; Tobacco abuse counseling Z71.6 ; Atherosclerotic heart disease of [place] coronary artery without angina pectoris I25.10 ; Seborrheic keratoses L82.1 and Gastroesophageal reflux disease with esophagitis K21.0 [facility] [id number] [place] [address]502 -6689 Jan, Abscess L02.91 [place] [address] [id number] [place] [address] 57069- 1821 Jan, Neuropathy G62.9 [place] [address] [id number] [place] [address] 73069- 3453 20 Dec, 2017 Neuropathy G62.9 ; Cerebrovascular accident (CVA) due to embolism of other cerebral artery I63.49 and Seasonal allergic rhinitis due to other allergic trigger J30.89 [facility] [place] [id number] [place] [address] 40986 -1452 10 Dec, 2017 Altered mental status R41.[address] [address]- [address]28 16 Nov, 2017 Type 2 diabetes mellitus with diabetic neuropathy, without long-term current use of insulin E11.40 [place] [id number] [place] [address] 73653- 6627 Oct, Neuropathy G62.9 ; Type 2 diabetes mellitus with other diabetic neurological complication E11.49 ; Type 2 diabetes mellitus with hyperglycemia E11.65 ; Actinic keratoses L57.0 and Observed sleep apnea G47.30 [place] [address] [address]- 2485 Sep, Tinnitus of both ears H93.13 and Actinic keratitis, unspecified laterality H16.[address] [address]76- 3986 August, Type 2 diabetes mellitus without complications E11.9 and Controlled type 2 diabetes mellitus without complication, without long-term current use of insulin E11.9 [place] [address] 75333- 8831 August, Seborrheic keratoses L82.1 and Tinnitus of left ear H93.12 [place] [address] 77770- 7776 Jul, Controlled type 2 diabetes mellitus without complication, without long-term current use of insulin E11.9 ; Seborrheic keratoses L82.1 ; Bilateral tinnitus H93.13 and Seasonal allergic rhinitis due to other allergic trigger J30.89 [facility] [address] [id number] May, Encounter for dental examination Z01.20 [facility] [address] [id number] Jan, Encounter for dental examination Z01.20 [facility] [address] 61645- 5013 Jan, Type 2 diabetes mellitus without complications E11.9 and Acute non-recurrent maxillary sinusitis J01.00 [facility] [address] [address] -[address]684 Dec, Right ear impacted cerumen H61.21 and Acute suppurative otitis media of right ear without spontaneous rupture of tympanic membrane, recurrence not specified H66.001 [facility] [address] [address]391- 2546 Nov, Type 2 diabetes mellitus without complications E11.9 and Neuropathy G62.9 [facility] [address] [place] [address] [id number] Oct, Encounter for dental examination Z01.20 [facility] [address] [place] [id number] [place] [address] [id number] Jun, Dental examination Z01.20 [facility] [id number] [place] [address] 72429- 8116 16 Jun, 2016 Atherosclerotic heart disease of [place] coronary artery without angina pectoris I25.10 [facility] [address] [id number] [place] [address] 47654- 0336 15 Jun, 2016 Atherosclerotic heart disease of [place] coronary artery without angina pectoris I25.10 [facility] [id number] [place] [address] 96305- 2116 Jun, Type 2 diabetes mellitus without complications E11.9 [facility] [address] [place] [address] [id number] [place] [address] [id number] May, Encounter for dental examination Z01.20 [facility] [address] [place] [address] [id number] [place] [address] [id number] Apr, Dental caries K02.9 [facility] [address] [place] [id number] [place] [address] [id number] Apr, Dental examination Z01.20 [facility] [id number] [place] [address] 38615- 9236 Dec, Type 2 diabetes mellitus without complications E11.9 ; [facility] current use of insulin Z79.4 ; Essential (primary) hypertension I10 and Elevated white blood cell count, unspecified D72.829 [facility] [address] [id number] [place] [address] [id number]- 7977 Jul, Diabetes mellitus without mention of complication, type II or unspecified type, not stated as uncontrolled 250.00 [facility] [address] [place] [id number] [place] [address] 56446- 2776 Jul, [facility] [id number] [address] 07 Jan, 2015 Encounter for immunization Z23 [facility] [address] [id number] Dec, Dental examination V72.2 [facility] [address] [address] Nov, Cancer of lung, upper lobe 162.3 [facility] [address] [address] 0[address] Sep, Lung cancer 162.9 ; CAD (coronary artery disease) 414.00 and Depression 311 [facility] [address] [address] 14 Jul, 2014 [facility] [address] [address] 0[address] Jul, [facility] [address] [address]- 7895 Jun, [facility] [address] [address]- 2831 Jun, [facility] [address] [address] 3232 Mar, [facility] [id number] [address] 2336 Mar, [facility] [address] [address]- 8952 Jan, [facility] [address] [address]- 4018 Jan, [facility] [address] [address] 9323 Jan, [facility] [address] [id number] [address]- 6877 Jan, [facility] [id number] [address] Jan, [facility] [address] [id number] [place] [address]- 1633 Jan, [facility] [place] [facility] [address] [id number] [place] [address] 2546 Dec, [facility] [place] [facility] [address] [id number] [place] [address]- 4184 Dec, [facility] [place] [facility] [address] [id number] [place] [address]- 1611 Oct, [facility] [place] [facility] [address] [id number] [place] [address]- 8641 Oct, [facility] [place] [facility] [address] [id number] [place] [address]- 5156 Sep, [facility] [address] [id number] [place] [address]- 5000 Sep, [facility] [address] [id number] [place] [address]- 8160 August, [facility] [place] [facility] [address] [id number] [place] [address]- 4824 August, [facility] [address] [id number] [place] [address]- 8177 August, [facility] [place] [facility] [address] [id number] [place] [address]- 8626 August, [facility] [place] [facility] [address] [id number] [place] [address]- 9906 August, [facility] [place] [facility] [address] [id number] [place] [address]- 3242 August, [facility] [place] [facility] [address] [id number] [place] [address]- 2546 Jun, [facility] [place] [facility] [address] [id number] [place] [address]- 0927 Jun, [facility] [place] [facility] [address] [id number] [place] [address]- 6527 May, [facility] [place] [facility] [address] [id number] [place] [address]- 7755 May, [facility] [place] [facility] [address] [id number] [place] [address]- 8284 May, [facility] [place] [facility] [address] [id number] [place] [address]- 8846 May, [facility] [address] [id number] [place] [address]- 5891 Apr, [facility] [place] [facility] [address] [id number] [place] [address]- 9018 Apr, [facility] [address] [id number] [place] [address]- 7751 Mar, [facility] [place] [facility] [address] [id number] [place] [address]- 8294 Mar, [facility] [place] [facility] [address] [id number] [place] [address]- 9081 Mar, [facility] [place] [facility] [address] [id number] [place] [address]- 8935 Mar, [facility] [place] [facility] [address] [id number] [place] [address]- 8397 Mar, [facility] [place] [facility] [address] [id number] [address]- 0974 Mar, [facility] [place] [facility] [address] [id number] [place] [address]- 5773 Mar, [facility] [place] [facility] [address] [id number], [place] [address]- 6517 Mar, [facility] [place] [facility] [address] [id number] [place] [address]87 Mar, [facility] [place] [facility] [address] [id number] [place] [address]- 7977 Feb, [facility] [place] [facility] [address] [id number] [place] [address]- 4577 Feb, [facility] [place] [facility] [address] [id number] [place] [address]- 1793 Jan, [facility] [place] [facility] [address] [id number] [place] [address]- 9229 Jan, [facility] [place] [facility] [address] [id number] [place] [address]- 3823 Jan, [facility] [place] [facility] [address] [id number] [place] [address]- 8250 Jan, [facility] [place] [facility] [address] [id number] [place] [address]- 4667 Jan, [facility] [place] [facility] [address] [id number] [place] [address]- 7093 Dec, [facility] [place] [facility] [address] [id number] [place] [address]- 5174 Nov, [facility] [place] [facility] [address] [id number] [place] [address]- 6284 Nov, [facility] [place] [facility] [address] [facility] [id number] [place] [address]- 1969 Nov, [facility] [place] [facility] [address] [id number] [place] [address]- 1662 Oct, [facility] [place] [facility] [address] [id number] [place] [address] 2541 Oct, [facility] [place] [facility] [address] [id number] [place] [address]- 2788 Sep, [facility] [place] [facility] [address] [id number] [place] [address] 2541 Sep, [facility] [place] [facility] [address] [id number] [place] [address]- 5963 August, [facility] [place] [facility] [address] [id number] [place] [address]- 4347 August, [facility] [address] [id number] [place] [address]- 1938 August, [facility] [address] [id number] [place] [address] 2546 August, [facility] [address] [id number] [place] [address]- 0032 16 Jul, 2012 [facility] [address] [id number] [place] [address]- 4077 Jul, [facility] [address] [id number] [place] [address]- 3832 Jun, [facility] [address] [id number] [place] [address]- 1059 May, [facility] [address] [id number] [place] [address]- 4888 May, [facility] [address] [id number] [place] [address]- 2571 May, [facility] [address] [id number] [place] [address]- 9162 May, [facility] [address] [id number] [place] [address]- 1207 May, [facility] [address] [id number] [place] [address]- 9165 May, [facility] [place] [facility] [address] [id number] [place] 0393 May, [facility] [address] [id number] [place] [address]- 8976 August, [facility] [place] [facility] [address] [id number] [place] 1368 Jul, [facility] [address] [id number] [address]- 6386 Jul, [facility] [id number] [address] 2546 May, [facility] [id number] [address]- 2546 May, [facility] [id number] [address]- 4586 Mar, [facility] [address] [address]- 2546 Sep, [facility] [address] [address]- 9876 Jul, [facility] [address] [address]- 2546 Mar, [facility] [address], [place] [address]- 6796 Feb, [facility] [id number] [address]- 3486 Feb, IMMUNIZATIONS No Known Immunizations SOCIAL HISTORY [...]
[2018-04-05] MEDS ORDERED: LACTATED RINGERS 1,000 ML IV PRN (07:43)
--- OUTSIDE RECORDS SUMMARY | 2018-04-05 07:44 | XMS REPORT | Continuity of Care Document ---
Author Author [facility] [place] [facility] of [facility] Address Unknown Phone Unavailable Allergies Active Description Code Type Severity Reaction Onset Reported/Identified Relationship to Patient Clinical Status Yes celery Food Allergy N/A N/A 03/12/2009 Yes celery Food Allergy 03/12/2009 Yes Plavix 75 mg tablet Drug Allergy N/A N/A 11/01/2012 Yes Brilinta Drug Allergy N/A N/A 03/26/2013 Yes celery [id number] Drug Allergy Unknown N/A 07/28/2016 Yes clopidogrel [id number] Drug Allergy Unknown NAUSEA 07/28/2016 Yes ticagrelor [id number] Drug Allergy Unknown NAUSEA 07/28/2016 Yes celery [id number] Drug Allergy Severe ANAPHYLAXIS 03/29/2018 Yes clopidogrel [id number] Drug Allergy Mild NAUSEA/HIVES 03/29/2018 Yes ticagrelor [id number] Drug Allergy Mild NAUSEA/HIVES 03/29/2018 Medications There is no data. Problems Date [...] PAIN IN JOINT INVOLVING SHOULDER REGION 01/03/2008 AJYE RGIGS APRN 719.41 PAIN IN JOINT INVOLVING SHOULDER [...] PAIN IN JOINT INVOLVING SHOULDER REGION 01/03/2008 IRMA ROGER DO 719.41 PAIN IN JOINT INVOLVING SHOULDER REGION [...] ( CAPSULE) SPRAIN 03/13/2008 JAYE RIGGS APRN T 840.4 ROTATOR CUFF (CAPSULE) SPRAIN 03/13/2008 JAYE [...] NORMAL ROUTINE HISTORY AND PHYSICAL 03/12/2009 IRMA ORGER DO V70.0 NORMAL ROUTINE HISTORY AND PHYSICAL [...] UNSPECIFIED 09/01/2011 780.60 FEVER, UNSPECIFIED 09/01/2011 ONEIL HODGE, JAYE T 780.60 FEVER, UNSPECIFIED 09/01/2011 MICHAEL FERRO, DARSHAN 780.60 FEVER, UNSPECIFIED 09/01/2011 MICHAEL FERRO, DARSHAN 780.60 FEVER, UNSPECIFIED 09/01/2011 MICHAEL FERRO, DARSHAN 780.60 FEVER, UNSPECIFIED 09/01/2011 ONEIL HODGE, JAYE T 780.60 FEVER, UNSPECIFIED 09/01/2011 ONEIL HODGE, JAYE T 780.60 FEVER, UNSPECIFIED 09/01/2011 ONEIL HODGE, JAYE T 780.60 FEVER, UNSPECIFIED 09/01/2011 IRMA [...] MICHAEL FERRO, DARSHAN 414.00 CAD 05/24/2012 ONEIL HODGE JAYE T 414.00 CAD 05/24/2012 ONEIL HODGE, JAYE T 414.00 CAD 05/24/2012 ONEIL HODGE, JAYE T 414.00 CAD 05/24/2012 IRMA ROGER DO 414.00 CAD 05/24/2012 ONEIL HODGE, JAYE T 414.00 CAD 06/05/2012 ONEIL HODGE JAYE T 786.50 CHEST PAIN 06/05/2012 ONEIL HODGE JAYE T 786.50 CHEST PAIN 06/05/2012 786.50 CHEST PAIN 06/05/2012 786.50 CHEST PAIN 06/05/2012 786.50 CHEST PAIN 06/05/2012 786.50 CHEST PAIN 06/05/2012 786.50 CHEST PAIN 06/05/2012 786.50 CHEST PAIN 06/05/2012 JAYE RIGGS APRN 786.50 CHEST PAIN 06/05/2012 DARSHAN RODRIGUEZ MD [...] NEC 06/11/2012 Ot 414.01 CORONARY ATHEROSCLEROSIS OF [place] CORON 06/11/2012 Ot 530.81 ESOPHAGEAL REFLUX 06/11/2012 [...] TO KNEE LEG ANKLE AND FOOT 10/17/2012 AJYE RIGGS APRN 959.7 OTHER AND UNSPECIFIED INJURY [...] RIGGS APRN 401.9 HYPERTENSION, UNSPECIFIED ESSENTIAL 12/30/2012 ANNIE FERRO, GABI Katz Ot V54.01 ENCNTR FOR REMOVAL OF INTERNAL FIXATION 03/21/2013 DARSHAN RODRIGUEZ MD 288.60 LEUKOCYTOSIS 03/21/2013 DARSHAN RODRIGUEZ MD 288.60 LEUKOCYTOSIS 03/21/2013 DARSHAN RODRIGUEZ MD 288.60 LEUKOCYTOSIS 03/21/2013 JAYE RIGGS APRN 288.60 LEUKOCYTOSIS 03/21/2013 JAYE RIGGS APRN 288.60 LEUKOCYTOSIS 03/21/2013 JAYE RIGGS APRN 288.60 LEUKOCYTOSIS 03/21/2013 IRMA ROGER DO 288.60 LEUKOCYTOSIS 03/21/2013 JAYE RIGGS APRN 288.60 LEUKOCYTOSIS 09/24/2013 IRMA ROGER DO K 250.00 DIABETES II CONTROLLED (UNCOMPLICATED) 09/24/2013 JAYE RIGGS APRN 250.00 DIABETES II CONTROLLED (UNCOMPLICATED) 02/18/2014 JAYE RIGGS APRN 274.9 GOUT 09/01/2014 Ot 823.00 09/01/2014 Ot E000.8 09/01/2014 Ot E816.2 09/01/2014 Ot V72.83 09/01/2014 Ot V74.8 09/01/2014 Ot 786.50 09/01/2014 ANNIE FERRO, GABI L Ot V54.01 09/01/2014 ANNIE FERRO, GABI L Ot V72.84 09/01/2014 ANNIE FERRO, GABI L Ot V74.8 09/01/2014 MICHAEL FERRO, DARSHAN Ruelas [...] 09/02/2014 Ot 786.50 09/02/2014 ANNIE FERRO, GABI L Ot V54.01 09/02/2014 ANNIE FERRO, GABI L [...] DARSHAN Ruelas Ot 414.01 CORONARY ATHEROSCLEROSIS OF [place] CORON 09/03/2014 MICHAEL FERRO, DARSHAN Ruelas Ot [...] Ruelas Ot 715.90 09/04/2014 MICHAEL FERRO, DARSHAN Ruleas Ot 786.59 09/04/2014 MICHAEL FERRO, DARSHAN Ruelas Ot 786.6 09/04/2014 MICHAEL FERRO, DARSHAN Ruelas Ot V45.82 11/05/2014 Ot 823.00 11/05/2014 Ot E000.8 11/05/2014 Ot E816.2 11/05/2014 Ot V72.83 11/05/2014 Ot V74.8 11/05/2014 Ot 786.50 11/05/2014 ANNIE FERRO, GABI L Ot V54.01 11/05/2014 ANNIE FERRO, GABI L Ot V72.84 11/05/2014 ANNIE FERRO, GABI L Ot V74.8 11/10/2014 Ot 823.00 11/10/2014 Ot E000.8 11/10/2014 Ot E816.2 11/10/2014 Ot V72.83 11/10/2014 Ot V74.8 11/10/2014 Ot 786.50 11/10/2014 ANNIE FERRO, GABI L Ot V54.01 11/10/2014 ANNIE FERRO, GABI L Ot V72.84 11/10/2014 ANNIE FERRO, GABI L [...] FERRO, CHAU-RJ Ot 162.3 12/16/2014 BRANDY FERRO, CAHU-RJ Ot 250.00 12/16/2014 BRANDY FERRO, CHAU-RJ Ot [...] FERRO, CHAU-RJ Ot V45.82 12/23/2014 BRANDY FERRO, KANDI-RJ Ot V58.69 12/30/2014 Ot 823.00 12/30/2014 Ot E000.8 12/30/2014 Ot E816.2 12/30/2014 Ot V72.83 12/30/2014 Ot V74.8 12/30/2014 Ot 786.50 12/30/2014 ANNIE FERRO, GABI L Ot V54.01 12/30/2014 ANNIE FERRO, GABI L Ot V72.84 12/30/2014 ANNIE FERRO, GABI L Ot V74.8 12/30/2014 ESTEVAN FERRO, CHAPO J Ot 162.9 12/30/2014 BRANDY FERRO, JAMMIE Ot 162.3 12/30/2014 BRANDY FERRO, KANDI-RJ Ot 250.00 12/30/2014 BRANDY FERRO, KANDI-RJ Ot 272.4 12/30/2014 BRANDY FERRO, KANDI-RJ Ot 414.00 12/30/2014 BRANDY FERRO, KANDI-RJ Ot 793.0 12/30/2014 BRANDY FERRO, KANDI-RJ Ot V45.82 12/30/2014 BRANDY FERRO, KANDI-RJ Ot V58.69 12/30/2014 VISHNU STARKS EVP HEAD OF [employer] Ot 162.3 12/30/2014 VISHNU STARKS EVP HEAD OF [employer] Ot 250.00 12/30/2014 VISHNU STARKS EVP HEAD OF [employer] Ot 272.4 12/30/2014 VISHNU STARKS EVP HEAD OF [employer] Ot 414.00 12/30/2014 VISHNU STARKS EVP HEAD OF [employer] Ot 793.0 12/30/2014 VISHNU STARKS EVP HEAD OF [employer] Ot V45.82 12/30/2014 VISHNU STARKS EVP HEAD OF [employer] Ot V58.69 01/13/2015 BRANDY FERRO, JAMMIE Ot 162.3 01/13/2015 BRANDY FERRO, CHAU-RJ Ot 250.00 01/13/2015 BRANDY FERRO, KANDI-RJ Ot 272.4 01/13/2015 BRANDY FERRO, KANDI-RJ Ot 414.00 01/13/2015 BRANDY FERRO, KANDI-RJ Ot 793.0 01/13/2015 BRANDY FERRO, KANDI-RJ Ot V45.82 01/13/2015 BRANDY FERRO, KANDI-RJ Ot V58.69 01/14/2015 BRANDY FERRO, KANDI-RJ Ot 162.3 01/14/2015 BRANDY FERRO, KANDI-RJ Ot 250.00 01/14/2015 BRANDY FERRO, JAMMIE Ot 272.4 01/14/2015 BRANDY FERRO, JAMMIE Ot 414.00 01/14/2015 JAMMIE NAVA MD Ot 793.0 01/14/2015 JAMMIE NAVA MD Ot V45.82 01/14/2015 JAMMIE NAVA MD Ot V58.69 01/20/2015 JAMMIE NAVA MD Ot 162.3 MAL LAURA UPPER LOBE LUNG 01/20/2015 JAMMIE NAVA MD Ot 250.00 DIAB CHETNA WO COMPL, TYPE [...] 02/24/2015 Ot V74.8 02/24/2015 Ot 786.50 02/24/2015 GABI VALENCIA MD Ot V54.01 02/24/2015 GABI VALENCIA MD Ot V72.84 02/24/2015 GABI VALENCIA MD Ot V74.8 02/24/2015 ESTEVAN FERRO, CHAPO J Ot 162.9 02/24/2015 VISHNU STARKS EVP HEAD OF [employer] Ot 162.3 02/24/2015 VISHNU STARKS EVP HEAD OF [employer] Ot 250.00 02/24/2015 VISHNU STARKS EVP HEAD OF [employer] Ot 272.4 02/24/2015 VISHNU STARKS EVP HEAD OF [employer] Ot 414.00 02/24/2015 VISHNU STARKS EVP HEAD OF [employer] Ot 793.0 02/24/2015 VISHNU STARKS EVP HEAD OF [employer] Ot V45.82 02/24/2015 VISHNU STARKS EVP HEAD OF [employer] Ot V58.69 02/24/2015 BRANDY FERRO, KANDI-RJ Ot 162.3 02/24/2015 BRANDY FERRO, KANDI-RJ Ot 250.00 02/24/2015 BRANDY FERRO, KANDI-RJ Ot 272.4 02/24/2015 BRANDY FERRO, KANDI-RJ Ot 414.00 02/24/2015 BRANDY FERRO, KANDI-JR Ot 793.0 02/24/2015 BRANDY FERRO, JAMMIE Ot V45.82 02/24/2015 BRANDY FERRO, KANDI-RJ Ot V58.69 02/24/2015 ESTEVAN FERRO, CHAPO J Ot 162.9 03/23/2015 BRANDY FERRO, CHAUDELIA Ot 162.3 03/23/2015 BRANDY FERRO, CHAU-RJ Ot 250.00 03/23/2015 BRANDY FRERO, LILYRJ Ot 272.4 03/23/2015 BRANDY FERRO, JAMMIE Ot 414.00 03/23/2015 BRANDY FERRO, LILYRJ Ot 793.0 03/23/2015 BRANDY FERRO, JAMMIE Ot V45.82 03/23/2015 BRANDY FERRO, JAMMIE Ot V58.69 03/30/2015 Ot 823.00 03/30/2015 Ot E000.8 03/30/2015 Ot E816.2 03/30/2015 Ot V72.83 03/30/2015 Ot V74.8 03/30/2015 Ot 786.50 03/30/2015 ANNIE FERRO, GABI L Ot V54.01 03/30/2015 ANNIE FERRO, GABI L Ot V72.84 03/30/2015 ANNIE FERRO, GABI L Ot V74.8 03/30/2015 ESTEVAN FERRO, CHAPO J Ot 162.9 03/30/2015 VISHNU STARKS EVP HEAD OF [employer] Ot 162.3 03/30/2015 VISHNU STARKS EVP HEAD OF [employer] Ot 250.00 03/30/2015 VISHNU STARKS EVP HEAD OF [employer] Ot 272.4 03/30/2015 VISHNU STARKS EVP HEAD OF [employer] Ot 414.00 03/30/2015 VISHNU STARKS EVP HEAD OF [employer] Ot 793.0 03/30/2015 VISHNU STARKS EVP HEAD OF [employer] Ot V45.82 03/30/2015 VISHNU STARKS EVP HEAD OF [employer] Ot V58.69 03/30/2015 BRANDY FERRO, JAMMIE Ot C34.10 03/30/2015 BRANDY FERRO, JAMMIE Ot E11.9 03/30/2015 BRANDY FERRO, JAMMIE Ot E78.5 03/30/2015 BRANDY FERRO, JAMMIE Ot I25.10 03/30/2015 BRANDY FERRO, JAMMIE Ot Z51.11 03/30/2015 BRANDY FERRO, JAMMIE Ot Z79.899 03/30/2015 BRANDY FERRO, JAMMIE Ot Z98.61 04/27/2015 JAMMIE NAVA MD, Ot C34.10 MALIGNANT NEOPLASM OF UPPER LOBE, UNSP B 04/27/2015 JAMMIE NAVA MD Ot E11.9 TYPE 2 DIABETES MELLITUS WITHOUT COMPLIC 04/27/2015 JAMMIE NAVA MD, Ot E78.5 HYPERLIPIDEMIA, UNSPECIFIED 04/27/2015 JAMMIE NAVA MD Ot I25.10 ATHSCL HEART DISEASE OF [place] CORONARY 04/27/2015 JAMMIE NAVA MD Ot Z51.11 ENCOUNTER FOR ANTINEOPLASTIC CHEMOTHERAP 04/27/2015 JAMMIE NAVA MD Ot Z79.899 OTHER COOLER MAN (CURRENT) DRUG THERAPY 04/27/2015 JAMMIE NAVA MD Ot Z98.61 CORONARY ANGIOPLASTY STATUS 07/28/2016 JAMMIE NAVA MD, Ot C34.10 MALIGNANT NEOPLASM OF UPPER LOBE, UNSP B 07/28/2016 JAMMIE NAVA MD Ot E11.9 TYPE 2 DIABETES MELLITUS WITHOUT COMPLIC 07/28/2016 JAMMIE NAVA MD, Ot E78.5 HYPERLIPIDEMIA, UNSPECIFIED 07/28/2016 JAMMIE NAVA MD Ot I25.10 ATHSCL HEART DISEASE OF [place] CORONARY 07/28/2016 JAMMIE NAVA MD Ot Z51.11 ENCOUNTER FOR ANTINEOPLASTIC CHEMOTHERAP 07/28/2016 JAMMIE NAVA MD, Ot Z79.899 OTHER MCC (CURRENT) DRUG THERAPY 07/28/2016 JAMMIE NAVA MD Ot Z98.61 CORONARY ANGIOPLASTY STATUS 07/28/2016 MILE CHOWDHURY DO Ot Z01.818 ENCOUNTER FOR OTHER PREPROCEDURAL EXAMIN 07/28/2016 MILE CHOWDHURY DO Ot Z85.118 PERSONAL HISTORY OF MALIGNANT NEOPLASM O 07/31/2016 Ot 786.50 CHEST PAIN NOS 07/31/2016 GABI VALENCIA MD Ot V54.01 ENCNTR FOR REMOVAL OF INTERNAL FIXATION 07/31/2016 GABI VALENCIA MD Ot V72.84 EXAM PRE-OPERATIVE NOS 07/31/2016 GABI VALENCIA MD, Ot V74.8 SCREEN-BACTERIAL DIS NEC 07/31/2016 ESTEVAN FERRO, CHAPO Lares Ot 162.9 MAL LAURA BRONCH/LUNG NOS 07/31/2016 VISHNU STARKS EVP HEAD OF [employer] Ot 162.3 MAL LAURA UPPER LOBE LUNG 07/31/2016 VISHNU STARKS EVP HEAD OF [employer] Ot 250.00 DIAB CHETNA WO COMPL, TYPE II OR UNSPEC TY 07/31/2016 VISHNU STARKS EVP HEAD [employer] Ot 272.4 HYPERLIPIDEMIA NEC/NOS 07/31/2016 VISHNU STARKS EVP HEAD OF [employer] Ot 414.00 CORON ATHEROSCLER NOS TYPE VESSEL, NATIV 07/31/2016 VISHNU STARKS EVP HEAD [employer] Ot 793.0 NOSP (ABN) FINDINGS ON RADIOLOGICAL OT 07/31/2016 VISHNU STARKSP Ot V45.82 PERCUTANEOUS TRANSLUM CORON ANGIOPLASTY 07/31/2016 VISHNU TSARKS EVP HEAD OF [employer] Ot V58.69 OT MED,LT,CURRENT USE 07/31/2016 JAMMIE NAVA MD Ot C34.10 MALIGNANT NEOPLASM OF UPPER LOBE, UNSP B 07/31/2016 JAMMIE NAVA MD Ot E11.9 TYPE 2 DIABETES MELLITUS WITHOUT COMPLIC 07/31/2016 JAMMIE NAVA MD Ot E78.5 HYPERLIPIDEMIA, UNSPECIFIED 07/31/2016 JAMMIE NAVA MD Ot I25.10 ATHSCL HEART DISEASE OF [place] CORONARY 07/31/2016 JAMMIE NAVA MD Ot Z51.11 ENCOUNTER FOR ANTINEOPLASTIC CHEMOTHERAP 07/31/2016 JAMMIE NAVA MD Ot Z79.899 OTHER MCC (CURRENT) DRUG THERAPY 07/31/2016 JAMMIE NAVA MD Ot Z98.61 CORONARY ANGIOPLASTY STATUS 07/31/2016 Ot 786.50 CHEST PAIN NOS 07/31/2016 GABI VALENCIA MD, Ot V54.01 ENCNTR FOR REMOVAL OF INTERNAL FIXATION 07/31/2016 GABI VALENCIA MD Ot V72.84 EXAM PRE-OPERATIVE NOS 07/31/2016 GABI VALENCIA MD Ot V74.8 SCREEN-BACTERIAL DIS NEC 07/31/2016 ESTEVAN FERRO, CHAPO J Ot 162.9 MAL LAURA BRONCH/LUNG NOS 07/31/2016 VISHNU STARKS EVP HEAD OF [employer] Ot 162.3 MAL LAURA UPPER LOBE LUNG 07/31/2016 VISHNU STARKS EVP HEAD OF [employer] Ot 250.00 DIAB CHETNA WO COMPL, TYPE II OR UNSPEC TY 07/31/2016 VISHNU STARKS EVP HEAD OF [employer] Ot 272.4 HYPERLIPIDEMIA NEC/NOS 07/31/2016 VISHNU STARKS EVP HEAD OF [employer] Ot 414.00 CORON ATHEROSCLER NOS TYPE VESSEL, NATIV 07/31/2016 VISHNU STARKS EVP HEAD OF [employer] Ot 793.0 NOSP (ABN) FINDINGS ON RADIOLOGICAL OT 07/31/2016 VISHNU STARKSP Ot V45.82 PERCUTANEOUS TRANSLUM CORON ANGIOPLASTY 07/31/2016 VISHNU STARKS EVP HEAD OF [employer] Ot V58.69 OT MED,LT,CURRENT USE 07/31/2016 JAMMIE NAVA MD Ot C34.10 MALIGNANT NEOPLASM OF UPPER LOBE, UNSP B 07/31/2016 JAMMIE NAVA MD Ot E11.9 TYPE 2 DIABETES MELLITUS WITHOUT COMPLIC 07/31/2016 JAMMIE NAVA MD Ot E78.5 HYPERLIPIDEMIA, UNSPECIFIED 07/31/2016 JAMMIE NAVA MD Ot I25.10 ATHSCL HEART DISEASE OF [place] CORONARY 07/31/2016 JAMMIE NAVA MD Ot Z51.11 ENCOUNTER FOR ANTINEOPLASTIC CHEMOTHERAP 07/31/2016 JAMMIE NAVA MD Ot Z79.899 OTHER MCC (CURRENT) DRUG THERAPY 07/31/2016 JAMMIE NAVA MD Ot Z98.61 CORONARY ANGIOPLASTY STATUS 07/31/2016 MILE CHOWDHURY DO Ot E11.9 TYPE 2 DIABETES MELLITUS WITHOUT COMPLIC 07/31/2016 MILE CHOWDHURY DO Ot I87.2 VENOUS INSUFFICIENCY (CHRONIC) (PERIPHER 07/31/2016 MILE CHOWDHURY DO Ot Z11.2 ENCOUNTER FOR SCREENING FOR OTHER BACTER 07/31/2016 MILE CHOWDHURY DO Ot Z85.118 PERSONAL HISTORY OF MALIGNANT NEOPLASM O 07/31/2016 MILE CHOWDHURY DO Ot Z01.818 ENCOUNTER FOR OTHER PREPROCEDURAL EXAMIN 07/31/2016 MIEL CHOWDHURY DO, Ot Z85.118 PERSONAL HISTORY OF MALIGNANT NEOPLASM O 08/01/2016 MILE CHOWDHURY DO Ot E11.9 TYPE 2 DIABETES MELLITUS WITHOUT COMPLIC 08/01/2016 MILE CHOWDHURY DO Ot I87.2 VENOUS INSUFFICIENCY (CHRONIC) (PERIPHER 08/01/2016 MILE CHOWDHURY DO Ot Z11.2 ENCOUNTER FOR SCREENING FOR OTHER BACTER 08/01/2016 MILE CHOWDHURY DO Ot Z85.118 PERSONAL HISTORY OF MALIGNANT NEOPLASM O 09/12/2016 Ot 786.50 CHEST PAIN NOS 09/12/2016 GABI VALENCIA MD Ot V54.01 ENCNTR FOR REMOVAL OF INTERNAL FIXATION 09/12/2016 GABI VALENCIA MD Ot V72.84 EXAM PRE-OPERATIVE NOS 09/12/2016 GABI VALENCIA MD Ot V74.8 SCREEN-BACTERIAL DIS NEC 09/12/2016 ESTEVAN FERRO, CHAPO J Ot 162.9 MAL LAURA BRONCH/LUNG NOS 09/12/2016 VISHNU STARKS EVP HEAD OF [employer] Ot 162.3 MAL LAURA UPPER LOBE LUNG 09/12/2016 VISHNU STARKS EVP HEAD OF [employer] Ot 250.00 DIAB CHETNA WO COMPL, TYPE II OR UNSPEC TY 09/12/2016 VISHNU STARKS EVP HEAD OF [employer] Ot 272.4 HYPERLIPIDEMIA NEC/NOS 09/12/2016 VISHNU STARKS EVP HEAD OF [employer] Ot 414.00 CORON ATHEROSCLER NOS TYPE VESSEL, NATIV 09/12/2016 VISHNU STARKS EVP HEAD OF [employer] Ot 793.0 NOSP (ABN) FINDINGS ON RADIOLOGICAL OT 09/12/2016 VISHNU STARKS EVP HEAD OF [employer] Ot V45.82 PERCUTANEOUS TRANSLUM CORON ANGIOPLASTY 09/12/2016 VISHNU STARKS EVP HEAD OF [employer] Ot V58.69 OT MED,LT,CURRENT USE 09/12/2016 JAMMIE NAVA MD Ot C34.10 MALIGNANT NEOPLASM OF UPPER LOBE, UNSP B 09/12/2016 JAMMIE NAVA MD Ot E11.9 TYPE 2 DIABETES MELLITUS WITHOUT COMPLIC 09/12/2016 JAMMIE NAVA MD Ot E78.5 HYPERLIPIDEMIA, UNSPECIFIED 09/12/2016 JAMMIE NAVA MD Ot I25.10 ATHSCL HEART DISEASE OF [place] CORONARY 09/12/2016 JAMMIE NAVA MD Ot Z51.11 ENCOUNTER FOR ANTINEOPLASTIC CHEMOTHERAP 09/12/2016 JAMMIE NAVA MD Ot Z79.899 OTHER MCC (CURRENT) DRUG THERAPY 09/12/2016 BRANDY FERRO, JAMMIE Ot Z98.61 CORONARY ANGIOPLASTY STATUS 09/12/2016 CHRISTISRIDHAR CLARK EVP HEAD OF [employer] Ot E11.9 TYPE 2 DIABETES MELLITUS WITHOUT COMPLIC 09/12/2016 CHRITSISRIDHAR CLARK EVP HEAD OF [employer] Ot I25.10 ATHSCL HEART DISEASE OF [place] CORONARY 09/12/2016 CHRISTISRIDHAR CLARK EVP HEAD OF [employer] Ot 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 [place] 09/12/2016 CHRISTIAMBER SRIDHAR Katz EVP HEAD OF [employer] Ot R06.02 SHORTNESS OF BREATH 09/12/2016 CHRISTIAMBER SRIDHAR Katz EVP HEAD OF [employer] Ot R07.89 OTHER CHEST PAIN 09/12/2016 CHRISTIAMBER SRIDHAR Katz EVP HEAD OF [employer] Ot T82.855A STENOSIS OF CORONARY ARTERY STENT, INITI 09/12/2016 CHRISTIAMBER SRIDHAR Katz EVP HEAD OF [employer] Ot Z79.84 MCC (CURRENT) USE OF ORAL HYPOGLYC 09/12/2016 CHRISTIAMBER SRIDHAR Katz EVP HEAD OF [employer] Ot Z79.899 OTHER MCC (CURRENT) DRUG THERAPY 09/12/2016 CHRISTIAMBER SRIDHAR Katz EVP HEAD OF [employer] Ot Z82.49 FAMILY HX OF ISCHEM HEART DIS AND OTH DI 09/12/2016 CHRISTIAMBER SRIDHAR Katz EVP HEAD OF [employer] Ot Z85.118 PERSONAL HISTORY OF MALIGNANT NEOPLASM O 09/12/2016 CHRISTIAMBER SRIDHAR Katz EVP HEAD OF [employer] Ot Z87.891 PERSONAL HISTORY OF NICOTINE DEPENDENCE 09/12/2016 CHRISTIAMBER SRIDHAR Katz EVP HEAD [employer] Ot Z90.2 ACQUIRED ABSENCE OF LUNG [PART OF] 09/12/2016 CHRISTIAMBER SRIDHAR Katz EVP HEAD OF [employer] Ot Z92.21 PERSONAL HISTORY OF ANTINEOPLASTIC CHEMO 09/21/2016 Ot 786.50 CHEST PAIN NOS 09/21/2016 GABI VALENCIA MD Ot V54.01 ENCNTR FOR REMOVAL OF INTERNAL FIXATION 09/21/2016 GABI VALENCIA MD Ot V72.84 EXAM PRE-OPERATIVE NOS 09/21/2016 GABI VALENCIA MD Ot V74.8 SCREEN-BACTERIAL DIS NEC 09/21/2016 ESTEVAN FERRO, CHAPO J Ot 162.9 MAL LAURA BRONCH/LUNG NOS 09/21/2016 VISHNU STARKS S EVP HEAD OF [employer] Ot 162.3 MAL LAURA UPPER LOBE LUNG 09/21/2016 VISHNU STARKS S EVP HEAD OF [employer] Ot 250.00 DIAB CHETNA WO COMPL, TYPE II OR UNSPEC TY 09/21/2016 TEREZAVISHNU EVP HEAD OF [employer] Ot 272.4 HYPERLIPIDEMIA NEC/NOS 09/21/2016 STARKS, BEVLOUISE Ramires EVP HEAD OF [employer] Ot 414.00 CORON ATHEROSCLER NOS TYPE VESSEL, NATIV 09/21/2016 VISHNU STARKS EVP HEAD OF [employer] Ot 793.0 NOSP (ABN) FINDINGS ON RADIOLOGICAL OT 09/21/2016 TEREZA BEVLOUISE Ramires EVP HEAD OF [employer] Ot V45.82 PERCUTANEOUS TRANSLUM CORON ANGIOPLASTY 09/21/2016 STARKS, BEVLOUISE Ramires EVP HEAD OF [employer] Ot V58.69 OT MED,LT,CURRENT USE 09/21/2016 JAMMIE NAVA MD Ot C34.10 MALIGNANT NEOPLASM OF UPPER LOBE, UNSP B 09/21/2016 JAMMIE NAVA MD Ot E11.9 TYPE 2 DIABETES MELLITUS WITHOUT COMPLIC 09/21/2016 JAMMIE NAVA MD Ot E78.5 HYPERLIPIDEMIA, UNSPECIFIED 09/21/2016 JAMMIE NAVA MD Ot I25.10 ATHSCL HEART DISEASE OF [place] CORONARY 09/21/2016 JAMMIE NAVA MD Ot Z51.11 ENCOUNTER FOR ANTINEOPLASTIC CHEMOTHERAP 09/21/2016 JAMMIE NAVA MD Ot Z79.899 OTHER MCC (CURRENT) DRUG THERAPY 09/21/2016 JAMMIE NAVA MD Ot Z98.61 CORONARY ANGIOPLASTY STATUS 09/21/2016 SRIDHAR BLACK Ot E11.9 TYPE 2 DIABETES MELLITUS WITHOUT COMPLIC 09/21/2016 SRIDHAR BLACKP Ot I25.10 ATHSCL HEART DISEASE OF [place] CORONARY 09/21/2016 SRIDHAR BLACK EVP HEAD OF [employer] STRATEGY Ot 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 CALCIFIE 09/21/2016 SRIDHAR BLACK EVP HEAD OF [employer] STRATEGY Ot R06.02 SHORTNESS OF BREATH 09/21/2016 SRIDHAR BLACK EVP HEAD OF [employer] STRATEGY Ot R07.89 OTHER CHEST PAIN 09/21/2016 SRIDHAR BLACK EVP HEAD OF [employer] STRATEGY Ot T82.855A STENOSIS OF CORONARY ARTERY STENT, INITI 09/21/2016 SRIDHAR BLACK EVP HEAD OF [employer] STRATEGY Ot Z79.84 COOLER MAN (CURRENT) USE OF ORAL HYPOGLYC 09/21/2016 SRIDHAR BLACK EVP HEAD OF [employer] STRATEGY Ot Z79.899 OTHER MCC (CURRENT) DRUG THERAPY 09/21/2016 SRIDHAR BLACK EVP HEAD OF [employer] STRATEGY Ot Z82.49 FAMILY HX OF ISCHEM HEART DIS AND OTH DI 09/21/2016 SRIDHAR BLACK EVP HEAD OF [employer] STRATEGY Ot Z85.118 PERSONAL HISTORY OF MALIGNANT NEOPLASM O 09/21/2016 SRIDHAR BLACK EVP HEAD OF [employer] STRATEGY Ot Z87.891 PERSONAL HISTORY OF NICOTINE DEPENDENCE 09/21/2016 SRIDHAR BLACK EVP HEAD OF [employer] STRATEGY Ot Z90.2 ACQUIRED ABSENCE OF LUNG [PART OF] 09/21/2016 SRIDHAR BLACK EVP HEAD OF [employer] STRATEGY Ot Z92.21 PERSONAL HISTORY OF ANTINEOPLASTIC CHEMO 09/22/2016 AKANKSHA FERRO FACC, ALI FACP CCDS Ot C34.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, LEFT B 09/22/2016 AKANKSHA CHAMBERSC, ALI FACP CCDS Ot E13.9 OTHER SPECIFIED DIABETES MELLITUS WITHOU 09/22/2016 AKANKSHA FERRO FACC, ALI FACP CCDS Ot E78.4 OTHER HYPERLIPIDEMIA 09/22/2016 AKANKSHA FERRO FACC, ALI FACP CCDS Ot I25.10 ATHSCL HEART DISEASE OF [place] CORONARY 09/22/2016 AKANKSHA FERRO FACC, ALI FACP CCDS Ot R00.2 PALPITATIONS 09/22/2016 AKANKSHA CHAMBERSC, ALI FACP CCDS Ot R06.02 SHORTNESS OF BREATH 09/22/2016 AKANKSHA CHAMBERSC, ALI FACP CCDS Ot Z87.891 PERSONAL HISTORY OF NICOTINE DEPENDENCE 09/23/2016 SRIDHAR BLACK EVP HEAD OF [employer] STRATEGY Ot E11.9 TYPE 2 DIABETES MELLITUS WITHOUT COMPLIC 09/23/2016 SRIDHAR BLACK EVP HEAD OF [employer] STRATEGY Ot I25.10 ATHSCL HEART DISEASE OF [place] CORONARY 09/23/2016 SRIDHAR BLACK EVP HEAD OF [employer] STRATEGY Ot 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 CALCIFIE 09/23/2016 SRIDHAR BLACK EVP HEAD OF [employer] STRATEGY Ot R06.02 SHORTNESS OF BREATH 09/23/2016 SRIDHAR BLACK EVP HEAD [employer] STRATEGY Ot R07.89 OTHER CHEST PAIN 09/23/2016 SRIDHAR BLACK EVP HEAD OF [employer] STRATEGY Ot T82.855A STENOSIS OF CORONARY ARTERY STENT, INITI 09/23/2016 SRIDHAR BLACK EVP HEAD OF [employer] STRATEGY Ot Z79.84 MCC (CURRENT) USE OF ORAL HYPOGLYC 09/23/2016 SRIDHAR BLACK EVP HEAD [employer] STRATEGY Ot Z79.899 OTHER COOLER MAN (CURRENT) DRUG THERAPY 09/23/2016 SRIDHAR BLACK EVP HEAD [employer] STRATEGY Ot Z82.49 FAMILY HX OF ISCHEM HEART DIS AND OTH DI 09/23/2016 SRIDHAR BLACK EVP HEAD OF [employer] STRATEGY Ot Z85.118 PERSONAL HISTORY OF MALIGNANT NEOPLASM O 09/23/2016 SOFIA SRIDHAR L EVP HEAD OF [employer] STRATEGY Ot Z87.891 PERSONAL HISTORY OF NICOTINE DEPENDENCE 09/23/2016 SRIDHAR BLACK EVP HEAD OF [employer] STRATEGY Ot Z90.2 ACQUIRED ABSENCE OF LUNG [PART OF] 09/23/2016 SRIDHAR BLACK EVP HEAD OF [employer] STRATEGY Ot Z92.21 PERSONAL HISTORY OF ANTINEOPLASTIC CHEMO 10/03/2016 AKANKSHA FERRO FACC, ALI FACP CCDS Ot C34.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, LEFT B 10/03/2016 AKANKSHA FERRO FACC, ALI FACP CCDS Ot E13.9 OTHER SPECIFIED DIABETES MELLITUS WITHOU 10/03/2016 AKANKSHA CHAMBERSC, ALI FACP CCDS Ot E78.4 OTHER HYPERLIPIDEMIA 10/03/2016 AKANKSHA CHAMBERSC, ALI FACP CCDS Ot I25.10 ATHSCL HEART DISEASE OF [place] CORONARY 10/03/2016 AKANKSHA FERRO FACC, ALI FACP CCDS Ot R00.2 PALPITATIONS 10/03/2016 AKANKSHA FERRO FACC, ALI FACP CCDS Ot R06.02 SHORTNESS OF BREATH 10/03/2016 AKANKSHA CHAMBERSC, ALI FACP CCDS Ot Z87.891 PERSONAL HISTORY OF NICOTINE DEPENDENCE 10/05/2016 SOFIA SRIDHAR L EVP HEAD OF [employer] STRATEGY Ot E11.9 TYPE 2 DIABETES MELLITUS WITHOUT COMPLIC 10/05/2016 SRIDHAR BLACK EVP HEAD OF [employer] STRATEGY Ot I25.10 ATHSCL HEART DISEASE OF [place] CORONARY 10/05/2016 SRIDHAR BLACK EVP HEAD OF [employer] STRATEGY Ot 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 CALCIFIE 10/05/2016 SRIDHAR BLACK EVP HEAD OF [employer] STRATEGY Ot R06.02 SHORTNESS OF BREATH 10/05/2016 SRIDHAR BLACK EVP HEAD OF [employer] STRATEGY Ot R07.89 OTHER CHEST PAIN 10/05/2016 SRIDHAR BLACK EVP HEAD OF [employer] STRATEGY Ot T82.855A STENOSIS OF CORONARY ARTERY STENT, INITI 10/05/2016 SRIDHAR BLACK EVP HEAD OF [employer]ENCE STRATEGY Ot Z79.84 MCC (CURRENT) USE OF ORAL HYPOGLYC 10/05/2016 SRIDHAR BLACK EVP HEAD OF [employer] Ot Z79.899 OTHER MCC (CURRENT) DRUG THERAPY 10/05/2016 SRIDHAR BLACK EVP [employer] OF [employer] Ot Z82.49 FAMILY HX OF ISCHEM HEART DIS AND OTH DI 10/05/2016 SRIDHAR BLACK EVP HEAD OF [employer] Ot Z85.118 PERSONAL HISTORY OF MALIGNANT NEOPLASM O 10/05/2016 SRIDHAR BLACK EVP HEAD OF [employer] Ot Z87.891 PERSONAL HISTORY OF NICOTINE DEPENDENCE 10/05/2016 SRIDHAR BLACK EVP HEAD OF [employer] Ot Z90.2 ACQUIRED ABSENCE OF LUNG [PART OF] 10/05/2016 SRIDHAR BLACK EVP [employer] OF [employer] Ot Z92.21 PERSONAL HISTORY OF ANTINEOPLASTIC CHEMO 03/08/2017 Ot 786.50 CHEST PAIN NOS 03/08/2017 GABI VALENCIA MD Ot V54.01 ENCNTR FOR REMOVAL OF INTERNAL FIXATION 03/08/2017 GABI VALENCIA MD Ot V72.84 EXAM PRE-OPERATIVE NOS 03/08/2017 GABI VALENCIA MD Ot V74.8 SCREEN-BACTERIAL DIS NEC 03/08/2017 ESTEVAN FERRO, CHAPO J Ot 162.9 MAL LAURA BRONCH/LUNG NOS 03/08/2017 VISHNU STARKS EVP HEAD OF [employer]GY Ot 162.3 MAL LAURA UPPER LOBE LUNG 03/08/2017 VISHNU STARKS EVP HEAD OF [employer] Ot 250.00 DIAB CHETNA WO COMPL, TYPE II OR UNSPEC TY 03/08/2017 VISHNU STARKS EVP HEAD [employer] Ot 272.4 HYPERLIPIDEMIA NEC/NOS 03/08/2017 VISHNU STARKS EVP HEAD [employer] Ot 414.00 CORON ATHEROSCLER NOS TYPE VESSEL, NATIV 03/08/2017 VISHNU STARKS EVP HEAD OF [employer] Ot 793.0 NOSP (ABN) FINDINGS ON RADIOLOGICAL OT 03/08/2017 VISHNU STARKS EVP HEAD OF [employer] Ot V45.82 PERCUTANEOUS TRANSLUM CORON ANGIOPLASTY 03/08/2017 VISHNU STARKS EVP HEAD OF [employer] Ot V58.69 OTH MED,LT,CURRENT USE 03/08/2017 BRANDY FERRO, JAMMIE Ot C34.10 MALIGNANT NEOPLASM OF UPPER LOBE, UNSP B 03/08/2017 BRANDY FERRO, JAMMIE Ot E11.9 TYPE 2 DIABETES MELLITUS WITHOUT COMPLIC 03/08/2017 JAMMIE NAVA MD Ot E78.5 HYPERLIPIDEMIA, UNSPECIFIED 03/08/2017 JAMMIE NAVA MD Ot I25.10 ATHSCL HEART DISEASE OF [place] CORONARY 03/08/2017 BRANDY FERRO, JAMMIE Ot Z51.11 ENCOUNTER FOR ANTINEOPLASTIC CHEMOTHERAP 03/08/2017 JAMMIE NAVA MD Ot Z79.899 OTHER MCC (CURRENT) DRUG THERAPY 03/08/2017 JAMMIE NAVA MD Ot Z98.61 CORONARY ANGIOPLASTY STATUS 03/08/2017 AKANKSHA FERRO FACC, ALI FACP CCDS Ot C34.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, LEFT B 03/08/2017 AKANKSHA FERRO FACC, ALI FACP CCDS Ot E13.9 OTHER SPECIFIED DIABETES MELLITUS WITHOU 03/08/2017 AKANKSHA FERRO FACC, ALI FACP CCDS Ot E78.4 OTHER HYPERLIPIDEMIA 03/08/2017 AKANKSHA CHAMBERSC, ALI FACP CCDS Ot I25.10 ATHSCL HEART DISEASE OF [place] CORONARY 03/08/2017 AKANKSHA FERRO FACC, ALI FACP [...] MAL LAURA BRONCH/LUNG NOS 12/31/2017 VISHNU STARKS EVP HEAD [employer]GY Ot 162.3 MAL LAURA UPPER LOBE LUNG 12/31/2017 VISHNU STARKS EVP HEAD OF [employer] Ot 250.00 DIAB CHETNA WO COMPL, TYPE II OR UNSPEC TY 12/31/2017 VISHNU STARKS EVP HEAD [employer] Ot 272.4 HYPERLIPIDEMIA NEC/NOS 12/31/2017 VISHNU STARKS EVP HEAD [employer] Ot 414.00 CORON ATHEROSCLER NOS TYPE VESSEL, NATIV 12/31/2017 VISHNU STARKS EVP HEAD [employer] Ot 793.0 NOSP (ABN) FINDINGS ON RADIOLOGICAL OT 12/31/2017 VISHNU STARKS EVP HEAD [employer] Ot V45.82 PERCUTANEOUS TRANSLUM CORON ANGIOPLASTY 12/31/2017 VISHNU STARKS EVP HEAD [employer] Ot V58.69 OT MED,LT,CURRENT USE 12/31/2017 JAMMIE NAVA MD Ot C34.10 MALIGNANT NEOPLASM OF UPPER LOBE, UNSP B 12/31/2017 JAMMIE NAVA MD Ot E11.9 TYPE 2 DIABETES MELLITUS WITHOUT COMPLIC 12/31/2017 JAMMIE NAVA MD Ot E78.5 HYPERLIPIDEMIA, UNSPECIFIED 12/31/2017 JAMMIE NAVA MD Ot I25.10 ATHSCL HEART DISEASE OF [place] CORONARY 12/31/2017 JAMMIE NAVA MD Ot Z51.11 ENCOUNTER FOR ANTINEOPLASTIC CHEMOTHERAP 12/31/2017 JAMMIE NAVA MD Ot Z79.899 OTHER COOLER MAN (CURRENT) DRUG THERAPY 12/31/2017 JAMMIE NAVA MD, [...] CCDS Ot I25.10 ATHSCL HEART DISEASE OF [place] CORONARY 12/31/2017 AKANKSHA FERRO FACC, ALI FACP [...] MD Ot I25.10 ATHSCL HEART DISEASE OF [place] CORONARY 01/01/2018 SRAVAN LOVE MD Ot I69.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 01/01/2018 SRAVAN LOVE MD Ot K21.9 GASTRO-ESOPHAGEAL REFLUX DISEASE WITHOUT 01/01/2018 SRAVAN LOVE MD Ot Z79.84 COOLER MAN (CURRENT) USE OF ORAL HYPOGLYC 01/01/2018 SRAVAN LOVE MD Ot Z79.899 OTHER COOL[employer] MAN (CURRENT) DRUG THERAPY 01/01/2018 SRAVAN LOVE MD [...] MD Ot I25.10 ATHSCL HEART DISEASE OF [place] CORONARY 01/01/2018 SRAVAN LOVE MD Ot I69.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 01/01/2018 SRAVAN LOVE MD Ot K21.9 GASTRO-ESOPHAGEAL REFLUX DISEASE WITHOUT 01/01/2018 SRAVAN LOVE MD Ot Z79.84 MCC (CURRENT) USE OF ORAL HYPOGLYC 01/01/2018 SRAVAN LOVE MD Ot Z79.899 OTHER MCC (CURRENT) DRUG THERAPY 01/01/2018 SRAVAN LOVE MD [...] MD Ot I25.10 ATHSCL HEART DISEASE OF [place] CORONARY 01/03/2018 SRAVAN LOVE MD Ot I69.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 01/03/2018 SRAVAN LOVE MD Ot K21.9 GASTRO-ESOPHAGEAL REFLUX DISEASE WITHOUT 01/03/2018 SRAVAN LOVE MD Ot Z79.84 MCC (CURRENT) USE OF ORAL HYPOGLYC 01/03/2018 SRAVAN LOVE MD Ot Z79.899 OTHER MCC (CURRENT) DRUG THERAPY 01/03/2018 SRAVAN OLVE MD Ot Z85.118 PERSONAL HISTORY OF MALIGNANT [...] MD Ot I25.10 ATHSCL HEART DISEASE OF [place] CORONARY 01/03/2018 SRAVAN LOVE MD Ot I69.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 01/03/2018 SRAVAN LOVE MD, Ot K21.9 GASTRO-ESOPHAGEAL REFLUX DISEASE WITHOUT 01/03/2018 SRAVAN LOVE MD, Ot Z79.84 MCC (CURRENT) USE OF ORAL HYPOGLYC 01/03/2018 SRAVAN LOVE MD, Ot Z79.899 OTHER COOLER MAN (CURRENT) DRUG THERAPY 01/03/2018 SRAVAN LOVE MD, Ot Z85.118 PERSONAL HISTORY OF MALIGNANT NEOPLASM O 01/03/2018 SRAVAN LOVE MD, Ot Z92.21 PERSONAL HISTORY OF ANTINEOPLASTIC CHEMO 01/03/2018 SRAVAN LOVE MD, Ot Z95.5 PRESENCE OF CORONARY ANGIOPLASTY IMPLANT 03/05/2018 GABI VALENCIA MD Ot V54.01 ENCNTR FOR REMOVAL OF INTERNAL FIXATION 03/05/2018 GABI VALENCIA MD Ot V72.84 EXAM PRE-OPERATIVE NOS 03/05/2018 GABI VALENCIA MD, Ot V74.8 SCREEN-BACTERIAL DIS NEC 03/05/2018 ESTEVAN FERRO, CHAPO J Ot 162.9 MAL LAUAR BRONCH/LUNG NOS 03/05/2018 VISHNU STARKS EVP HEAD OF [employer] STR[employer]GY Ot 162.3 MAL LAURA UPPER LOBE LUNG 03/05/2018 VISHNU STARKS EVP HEAD [employer] STR[employer]GY Ot 250.00 DIAB CHETNA WO COMPL, TYPE II OR UNSPEC TY 03/05/2018 VISHNU STARKS EVP HEAD [employer] Ot 272.4 HYPERLIPIDEMIA NEC/NOS 03/05/2018 VISHNU STARKS EVP HEAD [employer] Ot 414.00 CORON ATHEROSCLER NOS TYPE VESSEL, NATIV 03/05/2018 VISHNU STARKS EVP HEAD OF [employer] STR[employer]GY Ot 793.0 NOSP (ABN) FINDINGS ON RADIOLOGICAL OT 03/05/2018 VISHNU STARKS EVP HEAD [employer] STR[employer]GY Ot V45.82 PERCUTANEOUS TRANSLUM CORON ANGIOPLASTY 03/05/2018 VISHNU STARKSP Ot V58.69 OTH MED,LT,CURRENT USE 03/05/2018 BRANDY FERRO, JAMMIE Ot C34.10 MALIGNANT NEOPLASM OF UPPER LOBE, UNSP B 03/05/2018 BRANDY FERRO, JAMMIE Ot E11.9 TYPE 2 DIABETES MELLITUS WITHOUT COMPLIC 03/05/2018 JAMMIE NAVA MD Ot E78.5 HYPERLIPIDEMIA, UNSPECIFIED 03/05/2018 JAMMIE NAVA MD Ot I25.10 ATHSCL HEART DISEASE OF [place] CORONARY 03/05/2018 JAMMIE NAVA MD Ot Z51.11 ENCOUNTER FOR ANTINEOPLASTIC CHEMOTHERAP 03/05/2018 JAMMIE NAVA MD Ot Z79.899 OTHER COOLER MAN (CURRENT) DRUG THERAPY 03/05/2018 JAMMIE NAVA MD Ot Z98.61 CORONARY ANGIOPLASTY STATUS 03/05/2018 AKANKSHA FERRO FACC, ALI FACP CCDS Ot C34.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, LEFT B 03/05/2018 AKANKSHA FERRO FACC, ALI FACP CCDS Ot E13.9 OTHER SPECIFIED DIABETES MELLITUS WITHOU 03/05/2018 AKANKSHA FERRO FACC, ALI FACP CCDS Ot E78.4 OTHER HYPERLIPIDEMIA 03/05/2018 AKANKSHA FERRO FACC, ALI FACP CCDS Ot I25.10 ATHSCL HEART DISEASE OF [place] CORONARY 03/05/2018 AKANKSHA FERRO FACC, ALI FACP CCDS Ot R00.2 PALPITATIONS 03/05/2018 AKANKSHA FERRO FACC, ALI FACP CCDS Ot R06.02 SHORTNESS OF BREATH 03/05/2018 AKANKSHA FERRO FACC, ALI FACP CCDS Ot Z87.891 PERSONAL HISTORY OF NICOTINE DEPENDENCE 03/07/2018 LISSA OATES PUFF IRON OPERATOR Ot G47.30 SLEEP APNEA, UNSPECIFIED 03/07/2018 LISSA OATES PUFF IRON OPERATOR Ot J44.9 CHRONIC OBSTRUCTIVE PULMONARY DISEASE, U 03/07/2018 LISSA OATES PUFF IRON OPERATOR Ot R06.02 SHORTNESS OF BREATH 03/07/2018 LISSA OATES PUFF IRON OPERATOR Ot Z72.0 TOBACCO USE 03/07/2018 LISSA OATES PUFF IRON OPERATOR Ot Z85.118 PERSONAL HISTORY OF MALIGNANT NEOPLASM O 03/12/2018 LISSA OATES PUFF IRON OPERATOR Ot C34.90 MALIGNANT NEOPLASM OF UNSP PART OF UNSP 03/12/2018 LISSA OATES PUFF IRON OPERATOR Ot G47.30 SLEEP APNEA, UNSPECIFIED 03/12/2018 LISSA OATES PUFF IRON OPERATOR Ot J43.9 EMPHYSEMA, UNSPECIFIED 03/12/2018 LISSA OATES PUFF IRON OPERATOR Ot K76.0 FATTY (CHANGE OF) LIVER, NOT ELSEWHERE C 03/12/2018 LISSA OATES PUFF IRON OPERATOR Ot Z72.0 TOBACCO USE 03/12/2018 LISSA OATES PUFF IRON OPERATOR Ot C34.90 MALIGNANT NEOPLASM OF UNSP PART OF UNSP 03/12/2018 LISSA OATES APRN Ot G47.30 SLEEP APNEA, UNSPECIFIED 03/12/2018 LISSA OATES PUFF IRON OPERATOR Ot J43.9 EMPHYSEMA, UNSPECIFIED 03/12/2018 LISSA OATES PUFF IRON OPERATOR Ot K76.0 FATTY (CHANGE OF) LIVER, NOT ELSEWHERE C 03/12/2018 LISSA OATES APRN Ot Z72.0 TOBACCO USE 03/19/2018 AKANKSHA FERRO FACC, DELBERT FACP CCDS Ot G45.9 TRANSIENT CEREBRAL ISCHEMIC ATTACK, UNSP 03/19/2018 AKANKSHA FERRO FACC, ALI FACP CCDS Ot R00.2 PALPITATIONS 03/20/2018 AKANKSHA FERRO FACC, ALI FACP CCDS Ot E11.9 TYPE 2 DIABETES MELLITUS WITHOUT COMPLIC 03/20/2018 AKANKSHA FERRO FACC, ALI FACP CCDS Ot G47.33 OBSTRUCTIVE SLEEP APNEA (ADULT) (PEDIATR 03/20/2018 AKANKSHA FERRO FACC, DELBERT FACP CCDS Ot I25.10 ATHSCL HEART DISEASE OF [place] CORONARY 03/20/2018 AKANKSHA FERRO FACC, ALI FACP CCDS Ot K21.9 GASTRO-ESOPHAGEAL REFLUX DISEASE WITHOUT 03/20/2018 AKANKSHA FERRO FACC, ALI FACP CCDS Ot R00.2 PALPITATIONS 03/20/2018 AKANKSHA FERRO FACC, DELBERT FACP CCDS Ot Z79.82 MCC (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 03/20/2018 AKANKSHA FERRO FACC, ALI FACP CCDS Ot Z79.84 COOLER MAN (CURRENT) USE OF ORAL HYPOGLYC 03/20/2018 AKANKSHA FERRO FACC, ALI FACP CCDS Ot Z79.899 OTHER MCC (CURRENT) DRUG THERAPY 03/20/2018 AKANKSHA FERRO FACC, ALI FACP CCDS Ot Z82.49 FAMILY HX OF ISCHEM HEART DIS AND OTH DI 03/20/2018 AKANKSHA FERRO FACC, ALI FACP CCDS Ot Z85.118 PERSONAL HISTORY OF MALIGNANT NEOPLASM O 03/20/2018 AKANKSHA FERRO FACC, ALI FACP CCDS Ot Z86.73 PRSNL HX OF TIA (TIA), AND CEREB INFRC W 03/20/2018 AKANKSHA FERRO FACC, ALI FACP CCDS Ot Z87.891 PERSONAL HISTORY OF NICOTINE DEPENDENCE 03/20/2018 AKANKSHA FERRO FACHiwot, ALI FACP CCDS Ot Z95.5 PRESENCE OF CORONARY ANGIOPLASTY IMPLANT 03/29/2018 GABI VALENCIA MD Ot V54.01 ENCNTR FOR REMOVAL OF INTERNAL FIXATION 03/29/2018 GABI VALENCIA MD Ot V72.84 EXAM PRE-OPERATIVE NOS 03/29/2018 GABI VALENCIA MD Ot V74.8 SCREEN-BACTERIAL DIS NEC 03/29/2018 ESTEVAN FERRO, CHAPO J Ot 162.9 MAL LAURA BRONCH/LUNG NOS 03/29/2018 STARKS, HILAH S EVP HEAD OF [employer] STR[employer]GY Ot 162.3 MAL LAURA UPPER LOBE LUNG 03/29/2018 STARKS, HILAH S EVP HEAD OF [employer] STR[employer]GY Ot 250.00 DIAB CHETNA WO COMPL, TYPE II OR UNSPEC TY 03/29/2018 STARKS, HILAH S EVP HEAD OF [employer] STR[employer]GY Ot 272.4 HYPERLIPIDEMIA NEC/NOS 03/29/2018 VISHNU STARKS S EVP HEAD OF [employer] STR[employer]GY Ot 414.00 CORON ATHEROSCLER NOS TYPE VESSEL, NATIV 03/29/2018 VISHNU STARKS S EVP HEAD OF [employer] STR[employer]GY Ot 793.0 NOSP (ABN) FINDINGS ON RADIOLOGICAL OT 03/29/2018 VISHNU STARKS S EVP HEAD OF [employer] STR[employer]GY Ot V45.82 PERCUTANEOUS TRANSLUM CORON ANGIOPLASTY 03/29/2018 VISHNU STARKS S EVP HEAD OF [employer] STRATEGY Ot V58.69 OTH MED,LT,CURRENT USE 03/29/2018 JAMMIE NAVA MD Ot C34.10 MALIGNANT NEOPLASM OF UPPER LOBE, UNSP B 03/29/2018 JAMMIE NAVA MD Ot E11.9 TYPE 2 DIABETES MELLITUS WITHOUT COMPLIC 03/29/2018 JAMMIE NAVA MD Ot E78.5 HYPERLIPIDEMIA, UNSPECIFIED 03/29/2018 JAMMIE NAVA MD Ot I25.10 ATHSCL HEART DISEASE OF [place] CORONARY 03/29/2018 JAMMIE NAVA MD, Ot Z51.11 ENCOUNTER FOR ANTINEOPLASTIC CHEMOTHERAP 03/29/2018 JAMMIE NAVA MD, Ot Z79.899 OTHER COOLER MAN (CURRENT) DRUG THERAPY 03/29/2018 JAMMIE NAVA MD, Ot Z98.61 CORONARY ANGIOPLASTY STATUS 03/29/2018 AKANKSHA FERRO FACC, ALI FACP CCDS Ot C34.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, LEFT B 03/29/2018 AKANKSHA FERRO FACC, ALI FACP CCDS Ot E13.9 OTHER SPECIFIED DIABETES MELLITUS WITHOU 03/29/2018 AKANKSHA FERRO FACC, DELBERT FACP CCDS Ot E78.4 OTHER HYPERLIPIDEMIA 03/29/2018 AKANKSHA FERRO FACC, DELBERT FACP CCDS Ot I25.10 ATHSCL HEART DISEASE OF [place] CORONARY 03/29/2018 AKANKSHA FERRO FACC, ALI FACP CCDS Ot R00.2 PALPITATIONS 03/29/2018 AKANKSHA FERRO FACC, DELBERT FACP CCDS Ot R06.02 SHORTNESS OF BREATH 03/29/2018 AKANKSHA FERRO FACC, ALI FACP CCDS Ot Z87.891 PERSONAL HISTORY OF NICOTINE DEPENDENCE 03/29/2018 LISSA OATES PUFF IRON OPERATOR Ot G47.30 SLEEP APNEA, UNSPECIFIED 03/29/2018 LISSA OATES PUFF IRON OPERATOR Ot J44.9 CHRONIC OBSTRUCTIVE PULMONARY DISEASE, U 03/29/2018 LISSA OATES PUFF IRON OPERATOR Ot R06.02 SHORTNESS OF BREATH 03/29/2018 LISSA OATES PUFF IRON OPERATOR Ot Z72.0 TOBACCO USE 03/29/2018 LISSA OATES PUFF IRON OPERATOR Ot Z85.118 PERSONAL HISTORY OF MALIGNANT NEOPLASM O 03/29/2018 LISSA OATES PUFF IRON OPERATOR Ot C34.90 MALIGNANT NEOPLASM OF UNSP PART OF UNSP 03/29/2018 LISSA OATES PUFF IRON OPERATOR Ot G47.30 SLEEP APNEA, UNSPECIFIED 03/29/2018 LISSA OATES PUFF IRON OPERATOR Ot J43.9 EMPHYSEMA, UNSPECIFIED 03/29/2018 LISSA OATES PUFF IRON OPERATOR Ot K76.0 FATTY (CHANGE OF) LIVER, NOT ELSEWHERE C 03/29/2018 LISSA OATES PUFF IRON OPERATOR Ot Z72.0 TOBACCO USE 03/29/2018 AKANKSHA FERRO FACC, DELBERT FACP CCDS Ot E11.9 TYPE 2 DIABETES MELLITUS WITHOUT COMPLIC 03/29/2018 AKANKSHA FERRO FACC, DELBERT FACP CCDS Ot G47.33 OBSTRUCTIVE SLEEP APNEA (ADULT) (PEDIATR 03/29/2018 AKANKSHA FERRO FACC, DELBERT FACP CCDS Ot I25.10 ATHSCL HEART DISEASE OF [place] CORONARY 03/29/2018 AKANKSHA FERRO FACC, DELBERT FACP CCDS Ot K21.9 GASTRO-ESOPHAGEAL REFLUX DISEASE WITHOUT 03/29/2018 AKANKSHA FERRO FACC, ALI FACP CCDS Ot R00.2 PALPITATIONS 03/29/2018 AKANKSHA FERRO FACC, DELBERT FACP CCDS Ot Z79.82 MCC (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 03/29/2018 AKANKSHA FERRO FACC, ALI FACP CCDS Ot Z79.84 COOLER MAN (CURRENT) USE OF ORAL HYPOGLYC 03/29/2018 AKANKSHA FERRO FACC, ALI FACP CCDS Ot Z79.899 OTHER MCC (CURRENT) DRUG THERAPY 03/29/2018 AKANKSHA FERRO FACC, ALI FACP CCDS Ot Z82.49 FAMILY HX OF ISCHEM HEART DIS AND OTH DI 03/29/2018 AKANKSHA FERRO FACC, ALI FACP CCDS Ot Z85.118 PERSONAL HISTORY OF MALIGNANT NEOPLASM O 03/29/2018 AKANKSHA FERRO FACC, DELBERT FACP CCDS Ot Z86.73 PRSNL HX OF TIA (TIA), AND CEREB INFRC W 03/29/2018 DELBERT VALE MD, FACC FACP CCDS Ot Z87.891 PERSONAL HISTORY OF NICOTINE DEPENDENCE 03/29/2018 AKANKSHA FERRO FACC, DELBERT FACP CCDS Ot Z95.5 PRESENCE OF CORONARY ANGIOPLASTY IMPLANT 03/29/2018 JAMMIE NAVA MD, Ot C34.10 MALIGNANT NEOPLASM OF UPPER LOBE, UNSP B 03/29/2018 JAMMIE NAVA MD Ot E11.9 TYPE 2 DIABETES MELLITUS WITHOUT COMPLIC 03/29/2018 JAMMIE NAVA MD, Ot E78.5 HYPERLIPIDEMIA, UNSPECIFIED 03/29/2018 JAMMIE NAVA MD Ot I25.10 ATHSCL HEART DISEASE OF [place] CORONARY 03/29/2018 JAMMIE NAVA MD Ot Z51.11 ENCOUNTER FOR ANTINEOPLASTIC CHEMOTHERAP 03/29/2018 JAMMIE NAVA MD, Ot Z79.899 OTHER MCC (CURRENT) DRUG THERAPY 03/29/2018 JAMMIE NAVA MD Ot Z98.61 CORONARY ANGIOPLASTY STATUS 04/02/2018 ADRIEL WHEELER MD Ot D11.9 BENIGN NEOPLASM OF MAJOR [place], 04/02/2018 ADRIEL WHEELER MD, Ot Z01.812 ENCOUNTER FOR PREPROCEDURAL LABORATORY E 04/02/2018 ADRIEL WHEELER MD, Ot Z11.2 ENCOUNTER FOR SCREENING FOR OTHER BACTER Procedures Code [place] [address] XRAY CHEST 2 VIEW 05/24/2012 Cardiolog Bradly Begum 05/24/2012 [id number] ROUTINE VENIPUNCTURE 06/05/2012 76335 A1C (IN-HOUSE) 06/05/2012 69698 CBC 06/05/2012 90168 LIVER PANEL (LFT) 06/05/2012 20201 CMP 06/05/2012 [id number] GFR CALC (RESULT ONLY) 06/05/2012 00547 ROUTINE VENIPUNCTURE 06/07/2012 27200 CBC 06/07/2012 46675 CMP 06/07/2012 61421 LIPID PANEL 06/07/2012 16155 MAGNESIUM 06/07/2012 [id number] GFR CALC (RESULT ONLY) 06/07/2012 09954 TSH 06/07/2012 30932 LIPASE 06/07/2012 98312 BNP 06/07/2012 82219 PSA FREE AND TOTAL 06/07/2012 88482 EKG, TRACING (IN-HOUSE) 06/09/2012 62611 ECHO 2D 06/09/2012 70672 OXIMETRY 06/09/2012 93042 BMP 07/03/2012 87716 CMP 07/03/2012 81035 LIPID PANEL 07/03/2012 95179 A1C (IN-HOUSE) 07/03/2012 78214 HEMOGLOBIN (IN-HOUSE) 07/03/2012 08396 CBC 07/03/2012 47588 ROUTINE VENIPUNCTURE 08/05/2012 30112 EKG, TRACING (IN-HOUSE) 08/05/2012 58184 HEMOGLOBIN (IN-HOUSE) 08/05/2012 12787 A1C (IN-HOUSE) 08/05/2012 64390 CBC 08/05/2012 49228 CMP 08/05/2012 45276 LIPID PANEL 08/05/2012 56580 A1C (IN-HOUSE) 08/23/2012 Jeri Andrade 08/23/2012 Storm Ross 09/06/2012 78727 A1C (IN-HOUSE) 11/29/2012 50174 ROUTINE VENIPUNCTURE 02/07/2013 [id number] GFR CALC (RESULT ONLY) 02/07/2013 91436 CMP 02/07/2013 22310 LIPID PANEL 02/07/2013 67436 A1C (IN-HOUSE) 03/21/2013 70112 ROUTINE VENIPUNCTURE 03/26/2013 87787 OXIMETRY 03/26/2013 1491521 IMMATURE PLATELET FRACTION (RESULT ONLY) 03/27/2013 64520 DIFFERENTIAL WBC COUNT (CBC DIFF RESULT) 03/27/2013 40678 RETICULOCYTE COUNT 03/27/2013 76963 PERIPHERIAL BLOOD SMEAR 03/27/2013 [id number] COMPLETE BLOOD COUNT NO DIFF (CBC Result) 03/27/2013 [id number] HEMATOLOGY OTHER REPORT 03/27/2013 75552 ROUTINE VENIPUNCTURE 06/09/2013 [id number] GFR CALC (RESULT ONLY) 06/09/2013 31980 CMP 06/09/2013 11216 LIPID PANEL 06/09/2013 32032 A1C (IN-HOUSE) 06/23/2013 99622 ROUTINE VENIPUNCTURE 09/17/2013 [id number] GFR CALC (RESULT ONLY) 09/17/2013 15935 CMP 09/17/2013 43060 LIPID PANEL 09/17/2013 97398 OXIMETRY 09/24/2013 27182 A1C (IN-HOUSE) 02/18/2014 23115 ROUTINE VENIPUNCTURE 02/18/2014 73928 MICRO ALBUMIN-IN HOUSE 02/18/2014 54003 LIPID PANEL 02/18/2014 11140 LIVER PANEL (LFT) 02/18/2014 15051 URIC ACID 02/18/2014 Results Test Result Range [...] resistant Staphylococcus aureus (MRSA) screening culture NEG [facility] Comprehensive metabolic panel - 12/31/17 [...] calculation of estimated glomerular filtration rate > NR Serum or plasma glucose measurement (mass/volume) 134 [...] NEGATIVE ng/mL <25 medMATCH Phencyclidine CONSISTENT NRG CMP - 03/01/18 07:59 GLUCOSE 117 mg/dL 65-99 UREA NITROGEN (BUN) 17 mg/dL 7-25 CREATININE 1.15 mg/dL 0.70-1.25 eGFR NON-AFR. [place] 67 mL/min/1.73m2 > OR=60 eGFR 78 mL/min/1.73m2 > OR=60 BUN/CREATININE RATIO NOT APPLICABLE (calc) 6-22 SODIUM 138 mmol/L 135-146 POTASSIUM 4.7 mmol/L 3.5-5.3 CHLORIDE 101 mmol/L 98-110 CARBON DIOXIDE 27 mmol/L 20-32 CALCIUM 9.6 mg/dL 8.6-10.3 PROTEIN, TOTAL 6.9 g/dL 6.1-8.1 ALBUMIN 4.4 g/dL 3.6-5.1 GLOBULIN 2.5 g/dL (calc) 1.9-3.7 ALBUMIN/GLOBULIN RATIO 1.8 (calc) 1.0-2.5 BILIRUBIN, TOTAL 0.5 mg/dL 0.2-1.2 ALKALINE PHOSPHATASE 138 U/L 40-115 AST 24 U/L 10-35 ALT 27 U/L 9-46 Arterial blood gas measurement - 03/05/18 11:15 [...] NRG Measurement of body temperature 97.8 NRG Methicillin resistant Staphylococcus aureus (MRSA) screening culture - 11:50 Methicillin resistant Staphylococcus aureus (MRSA) screening culture NEG NRG Complete blood count (CBC) with automated white blood cell (WBC) differential - 03/29/18 12:00 Blood leukocytes automated count (number/volume) 9.7 10*3/uL 4.3-11.0 Blood erythrocytes automated count (number/volume) 5.40 10*6/uL 4.35-5.85 Venous blood hemoglobin measurement (mass/volume) 15.9 g/dL 13.3-17.7 Blood hematocrit (volume fraction) 47 % 40-54 Automated erythrocyte mean corpuscular volume 86 [foz_us] 80-99 Automated erythrocyte mean corpuscular hemoglobin (mass per erythrocyte) 29 pg 25-34 Automated erythrocyte mean corpuscular hemoglobin concentration measurement ( mass/volume) 34 g/dL 32-36 Automated erythrocyte distribution width ratio 14.9 % 10.0-14.5 Automated blood platelet count (count/volume) 215 10*3/uL 130-400 Automated blood platelet mean volume measurement 11.4 [foz_us] 7.4-10.4 Automated blood neutrophils/100 leukocytes 60 % 42-75 Automated blood lymphocytes/100 leukocytes 26 % 12-44 Blood monocytes/100 leukocytes 11 % 0-12 Automated blood eosinophils/100 leukocytes 3 % 0-10 Automated blood basophils/100 leukocytes 1 % 0-10 Blood neutrophils automated count (number/volume) 5.8 10*3 1.8-7.8 Blood lymphocytes automated count (number/volume) 2.5 10*3 1.0-4.0 Blood monocytes automated count (number/volume) 1.0 10*3 0.0-1.0 Automated eosinophil count 0.3 10*3/uL 0.0-0.3 Automated blood basophil count (count/volume) 0.1 10*3/uL 0.0-0.1 Whole blood basic metabolic panel - 03/29/18 12:00 Serum or plasma sodium measurement (moles/volume) 138 mmol/L 135-145 Serum or plasma potassium measurement (moles/volume) 4.0 mmol/L 3.6-5.0 Serum or plasma chloride measurement (moles/volume) 103 mmol/L 98-107 Carbon dioxide 24 mmol/L 21-32 Serum or plasma anion gap determination (moles/volume) 11 mmol/L 5-14 Serum or plasma urea nitrogen measurement (mass/volume) 19 mg/dL 7-18 Serum or plasma creatinine measurement (mass/volume) 0.96 mg/dL 0.60-1.30 Serum or plasma urea nitrogen/creatinine mass ratio 20 NRG Serum or plasma creatinine measurement with calculation of estimated glomerular filtration rate > NRG Serum or plasma glucose measurement (mass/volume) 107 mg/dL 70-105 Serum or plasma calcium measurement (mass/volume) 9.7 mg/dL 8.5-10.1 Encounters ACCT No. Visit Date/Time Discharge Status Pt. Type Provider Facility Loc./Unit Complaint [id number] 02/18/2014 11:25:00 02/18/2014 23:59:59 CLS Outpatient JAYE RIGGS APRN [id number] 09/24/2013 08:52:00 09/24/2013 23:59:59 CLS Outpatient IRMA ROGER DO [id number] 09/17/2013 08:27:00 09/17/2013 23:59:59 CLS Outpatient JAYE RIGGS APRN [id number] 06/23/2013 10:57:00 06/23/2013 23:59:59 CLS Outpatient JAYE RIGGS APRN [id number] 06/09/2013 07:54:00 06/09/2013 23:59:59 CLS Outpatient JAYE RIGGS APRN [id number] 04/14/2013 10:21:00 04/14/2013 23:59:59 CLS Outpatient DARSHAN RODRIGUEZ MD [id number] 03/26/2013 09:21:00 03/26/2013 23:59:59 CLS Outpatient DARSHAN RODRIGUEZ MD [id number] 03/21/2013 14:10:00 03/21/2013 23:59:59 CLS Outpatient DARSHAN RODRIGUEZ MD [id number] 02/07/2013 10:19:00 02/07/2013 23:59:59 CLS Outpatient JAYE RIGGS APRN [id number] 07/03/2012 09:00:00 07/03/2012 23:59:59 CLS Outpatient [id number] 06/14/2012 10:00:00 06/14/2012 23:59:59 CLS Outpatient JAYE RIGGS APRN [id number] 06/07/2012 08:04:00 06/07/2012 23:59:59 CLS Outpatient JAYE RIGGS APRN [id number] 05/24/2012 09:01:00 05/24/2012 23:59:59 CLS Outpatient [id number] 11/29/2012 09:05:00 Document Registration [id number] 10/17/2012 13:38:00 Document Registration [id number] 09/06/2012 11:40:00 Document Registration [id number] 08/23/2012 08:42:00 Document Registration [id number] 08/05/2012 08:02:00 Document Registration [email or web address] 01/27/2015 10:10:15 ACT Document Registration [id number] 04/04/2018 09:00:00 ACT Outpatient ONEIL HODGE JAYE Block [facility] [id number] 03/01/2018 08:00:00 Document Registration [id number] 01/10/2018 09:20:00 Document Registration [id number] 03/29/2018 11:14:00 03/29/2018 15:11:00 DIS Outpatient ADRIEL WHEELER MD [facility] [address] PREOP RIGHT PAROTIDECTOMY [id number] 03/12/2018 07:37:00 03/12/2018 23:59:59 CLS Outpatient AKANKSHA FERRO FACC, DELBERT GOEL CCDS [facility] [address] CATH H/O TIA, PALPITATIONS,SOB,CAD [id number] 03/05/2018 12:16:00 03/05/2018 23:59:59 CLS Preadmit LISSA OATES APRN [facility] [address] PULM COPD,HISTORY OF LUNG CANCER,SOB,TOBACCO USER [id number] 03/05/2018 12:14:00 03/05/2018 23:59:59 CLS Outpatient LISSA OATES PUFF IRON OPERATOR [facility] [address] RAD COPD,HISTORY OF LUNG CANCER,SOB,TOBACCO USER [id number] 03/05/2018 10:37:00 03/05/2018 23:59:59 CLS Outpatient LISSA OATES PUFF IRON OPERATOR [facility] [address] RT J44.9,[id number] 12/31/2017 15:45:00 01/01/2018 14:05:00 DIS Inpatient SRAVAN LOVE MD [facility] [facility] [address] ICU CVA POSSIBLE [id number] 09/21/2016 13:34:00 09/21/2016 23:59:59 CLS Outpatient AKANKSHA FERRO FACHiwot, DELBERT CHAMBERSP CCDS Via [facility] [address] CARD I25.10,E13.9 [id number] 09/12/2016 08:59:00 09/12/2016 18:00:00 DIS Outpatient SRIDHAR BLACK EVP [employer] [facility] [address] CATH CAD,DM,HL [id number] 09/07/2016 15:57:00 09/07/2016 23:59:59 CLS Preadmit AKANKSHA FERRO FACC, DELBERT GOEL CCDS [facility] [address] RT I25.10,E13.9 [id number] 07/31/2016 10:29:00 07/31/2016 13:50:00 DIS Outpatient MILE CHOWDHURY DO Via [facility] HISTORY LUNG CA [id number] 07/28/2016 09:18:00 07/28/2016 13:24:00 DIS Outpatient MILE CHOWDHURY DO Via [facility] [address] PREOP PORT REMOVAL [id number] 04/28/2015 00:10:00 04/28/2015 23:59:59 CLS Preadmit JAMMIE NAVA MD Via [facility] [address] ONC [id number] 04/14/2015 14:37:00 04/27/2015 00:01:00 DIS Outpatient JAMMIE NAVA MD Via [facility] [address] ONC [id number] 01/20/2015 12:38:00 01/20/2015 00:01:00 DIS Outpatient JAMMIE NAVA MD [facility] [address] ONC [id number] 12/16/2014 08:58:00 12/16/2014 23:59:59 CLS Outpatient VISHNU STARKS EVP [employer] [facility] [address] ONC [id number] 11/10/2014 14:23:00 11/10/2014 23:59:59 CLS Outpatient CHAPO BARRETO MD [facility] [address] RAD NEOPLASM, [id number] 09/01/2014 12:50:00 09/03/2014 14:00:00 DIS Outpatient MICHAEL FERRO, DARSHAN Ruelas [facility] [address] CATH CHEST PAIN R LUNG MASS [id number] 12/30/2012 06:03:00 12/30/2012 10:10:00 DIS Outpatient GABI VALENCIA MD [facility] HEALED FRACTURE RIGHT TIBIA WITH RETAINED HARDWARE [id number] 12/25/2012 07:40:00 12/25/2012 23:59:59 CLS Outpatient GABI VALENCIA MD [facility] [address] PREOP HEALED FRACTURE RIGHT TIBIA WITH RETAINED HARDWARE [id number] 04/05/2018 07:31:00 ACT Outpatient ADRIEL WHEELER MD [facility] RIGHT PAROTID MASS WARTHINS TUMOR [id number] 09/01/2014 12:38:00 Document Registration [id number] 09/01/2014 12:38:00 Document Registration [id number] 06/06/2012 10:32:00 Document Registration [id number] 08/29/2011 20:50:00 Document Registration [id number] 11/16/2010 05:38:00 Document Registration [id number] 11/08/2010 06:44:00 Document Registration [id number] 07/07/2016 13:06:00 Document Registration
[2018-04-05 07:45] VITALS: BP 114/81
[2018-04-05] MEDS ORDERED: FAMOTIDINE 20MG/2ML IV (PEPCID) IV ONE (08:00)
[2018-04-05] MEDS ORDERED: FAMOTIDINE 20MG/2ML IV (PEPCID) ONE (08:08)
[2018-04-05] MEDS ORDERED: MUPIROCIN 2% OINT 22 GM (BACTROBAN) TUBE ONE (08:40)
[2018-04-05] MEDS ORDERED: LIDOCAINE/EPI 1%-1:100,000 (XYLOCAINE) 20ML ONE (08:40)
[2018-04-05] MEDS ORDERED: SEVOFLURANE (ULTANE) 15 ML INHAL SOLN ONE (08:51)
[2018-04-05] MEDS ORDERED: proPOfol 200 MG/20 ML (DIPRIVAN) VIAL IV ONE (08:51)
[2018-04-05] MEDS ORDERED: LIDOCAINE PF 2% 5 ML (XYLOCAINE) VIAL ONE (08:51)
[2018-04-05] MEDS ORDERED: fentaNYL INJECTION 100 MCG/2 ML AMP ONE (08:51)
[2018-04-05] MEDS ORDERED: SUCCINYLCHOLINE INJ 100 MG/5 ML SYR ONE (08:51)
[2018-04-05] MEDS ORDERED: MIDAZOLAM 2 MG/2 ML (VERSED) VIAL ONE (08:52)
[2018-04-05] MEDS ORDERED: ONDANSETRON 4 MG/2 ML (SDV) Z0FRAN ONE (08:55)
--- NOTE | 2018-04-05 09:07 | Progress Note-Pre Operative ---
Pre-Operative Progress Note H&P Reviewed The H&P was reviewed, patient examined and no changes noted. Date Seen by Provider: Apr 05, 2018 Time Seen by Provider: 09:00 Date H&P Reviewed: Apr 05, 2018 Time H&P Reviewed: 09:00 Pre-Operative Diagnosis: Right Parotid Mass DARIEL WHEELER MD Apr 05, 2018 09:07
[2018-04-05] MEDS ORDERED: BSS 15 ML ONE (10:55)
[2018-04-05] MEDS ORDERED: D5 1/2 NS W/KCL 20 MEQ/L 1,000 ML IV SCH (11:02)
--- NOTE | 2018-04-05 11:02 | Progress Note-Post Operative ---
Post-Operative Progess Note Surgeon (s)/Channel Sales Director (s) Surgeon ADRIEL WHEELER MD Channel Sales Director n/a Pre-Operative Diagnosis Right Parotid Mass Post-Operative Diagnosis same Post-Op Procedure Note Date of Procedure: Apr 05, 2018 Name of Procedure Performed: Right Parotidectomy Description & Findings Description and Findings: n/a Anesthesia Type get Estimated Blood Loss minimal Packing none. 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
[2018-04-05] MEDS ORDERED: ACETAMINOPHEN 325 MG TABLET PO PRN (11:15)
[2018-04-05] MEDS ORDERED: morphine INJ 10 MG/ML 1ML (SYR OR VIAL) IVP ONE (11:30)
[2018-04-05] MEDS ORDERED: MEPERIDINE (DEMEROL) INJ 50 MG/ML IVP ONE (11:30)
[2018-04-05] MEDS ORDERED: ONDANSETRON 4 MG/2 ML (SDV) Z0FRAN IVP PRN (11:30)
[2018-04-05] MEDS ORDERED: morphine INJ 10 MG/ML 1ML (SYR OR VIAL) ONE (11:47)
[2018-04-05 12:30] VITALS: BP 100/65
[2018-04-05] MEDS: HYDROcodone/APAP 5 MG/325 MG (LORTAB) TAB PO PRN ×3 (14:35→23:39)
[2018-04-05 15:40] VITALS: BP 109/67
--- NOTE | 2018-04-05 16:39 | Progress Note-Standard ---
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
[2018-04-05] MEDS: ONDANSETRON 4 MG/2 ML (SDV) Z0FRAN IVP PRN (18:11)
[2018-04-05 20:55] VITALS: BP 111/69
[2018-04-06 00:10] VITALS: BP 109/68
[2018-04-06 04:00] VITALS: BP 126/78
--- NOTE | 2018-04-06 06:17 | Progress Note-Standard ---
Standard Progress Note Progress Notes/Assess & Plan Date Seen by a Provider: Apr 06, 2018 Time Seen by a Provider: 06:00 Progress/Assessment & Plan Tim doing well no sweeling of incision face normal movements minimal drainage fro mdrain rita lobserve plan on removal of kash in am and then home dischage precriptions in chart [id number] Doing well juhi diet INcision dry and intact minimal drainage-drain d/c'ed will discharge RTC-7-10 days ADRIEL WHEELER MD Apr 06, 2018 06:17
[2018-04-06] MEDS: ONDANSETRON 4 MG/2 ML (SDV) Z0FRAN IVP PRN (08:27)
[2018-04-06 09:20] VITALS: BP 126/78
--- NOTE | 2018-04-06 12:05 | Anesthesia-General Post-Op ---
General Patient Condition Mental Status/LOC: Same as Preop Cardiovascular: Satisfactory Nausea/Vomiting: Absent Respiratory: Satisfactory Pain: Controlled Complications: Absent Post Op Complications Complications None Follow Up Care/Instructions Patient Instructions None needed. Anesthesia/Patient Condition Patient Condition Patient is doing well, no complaints, stable vital signs, no apparent adverse anesthesia problems. No complications reported per nursing. SANDY MEDEIROS CRNA Apr 06, 2018 12:05
== END 2018-04-06 09:20 | disposition home or self-care (01) ==
LOC: SDC 07:31 → 4TH 12:30 → SDC 04-06 09:20
PROVIDERS: ATTEND Otolaryngology Otolaryngology/Facial Plastic Surgery
DX: D11.0 Benign neoplasm of parotid gland (principal); E11.9 Type 2 diabetes mellitus without complications; I25.10 Atherosclerotic heart disease of native coronary artery without angina pectoris; J44.9 Chronic obstructive pulmonary disease, unspecified; G47.33 Obstructive sleep apnea (adult) (pediatric); K21.9 Gastro-esophageal reflux disease without esophagitis; Z87.891 Personal history of nicotine dependence; Z86.73 Personal history of transient ischemic attack (TIA), and cerebral infarction without residual deficits; Z79.82 Long term (current) use of aspirin; Z79.84 Long term (current) use of oral hypoglycemic drugs; Z79.899 Other long term (current) drug therapy
CPT/HCPCS: 82962; 88305; 88331

== ENCOUNTER → 2018-06-13 | Outpatient (CLI) | payer OTHER ==
--- NOTE | 2018-06-13 10:37 | Diagnostic Imaging Report ---
CLINICAL INDICATION: Patient with low back pain that shoots down right leg and has been constant for the past month. Patient has constipation for last 4 to 5 months. EXAM: X-ray of the lumbar spine, three views. COMPARISON: None. FINDINGS: There is no acute lumbar spine fracture or dislocation. There is chronic appearing concave deformities of the upper and lower endplates of the L3, L4, and L5 vertebra. There is small spurs seen throughout the thoracolumbar spine and lower lumbar spine facet arthropathy. Sacroiliac joints are unremarkable. There is mild right curvature of the lumbar spine. IMPRESSION: 1: There is no acute fracture or dislocation. 2: Chronic compression deformities of the L3, L4, and L5 vertebra. 3: Mild degenerative disease of the lumbar spine and mild right curvature of the lumbar spine. Dictated by: Dictated on workstation # [id number]
--- NOTE | 2018-06-13 12:54 | Diagnostic Imaging Report ---
EXAMINATION: Abdomen at 09:07 a.m. INDICATION: Constipation. FINDINGS: Two views were obtained. There is gas in both the large and small bowel in a nonspecific fashion. This appearance is similar to the prior CT abdomen/pelvis exam of 09/01/2014. I suspect that there is at least a moderate amount of fecal material present. There is no sign of a bowel obstruction. There is no mass or organomegaly appreciated. The osseous structures are intact. In the interval since the previous chest exam of 01/01/2018, a loop recorder device has been inserted over the lower thorax on the left. IMPRESSION: 1. The bowel gas pattern is nonspecific. There is no acute abnormality identified. 2. There does appear to be at least a moderate amount of fecal material throughout the colon. Dictated by: Dictated on workstation # [id number]
== END ==
LOC: RAD 08:06
PROVIDERS: ATTEND Nurse Practitioner Family
DX: K59.09 Other constipation (principal); M43.8X6 Other specified deforming dorsopathies, lumbar region; M47.816 Spondylosis without myelopathy or radiculopathy, lumbar region
CPT/HCPCS: 72100; 74019

== ENCOUNTER → 2018-08-14 | Outpatient (CLI) | payer OTHER ==
--- NOTE | 2018-08-14 13:00 | Diagnostic Imaging Report ---
PROCEDURE: MRI lumbar spine. TECHNIQUE: Multiplanar, multisequence MRI of the lumbar spine was performed without contrast. INDICATION: Low back pain and right leg pain. FINDINGS: Curvature and alignment of the lumbar spine is normal. Vertebral body heights and marrow signal intensity appear to be normal. No acute compression fracture is detected. No geographic marrow lesion is seen. Mild disc desiccation is seen at L5-S1. There is fairly normal height to the intervertebral discs. The conus is at the L2 level and unremarkable. T12-L1: Central canal and neural foramina are widely patent. L1-L2: Central canal and neural foramina are widely patent. L2-L3: There is some ligamentous thickening. Central canal is patent. Neural foramina are patent. L3-L4: There is ligamentous thickening but central canal is widely patent. Neural foramina are patent. L4-L5: There are ligamentous thickening and facet changes. Central canal is patent. There is some narrowing of the lateral recesses bilaterally. No neuroforaminal stenosis is seen. L5-S1: Central canal is widely patent. There is moderate right neural foraminal stenosis. Left neural foramen is patent. Paraspinous tissues are unremarkable. IMPRESSION: Lower lumbar spondylosis. There is lateral recess and neuroforaminal narrowing described level by level above. No central canal stenosis is seen. No acute compression fracture is identified. Dictated by: Dictated on workstation # [id number]
== END ==
LOC: RAD 09:13
PROVIDERS: ATTEND Nurse Practitioner Family
DX: M48.07 Spinal stenosis, lumbosacral region (principal); M47.816 Spondylosis without myelopathy or radiculopathy, lumbar region; M51.37 Other intervertebral disc degeneration, lumbosacral region
CPT/HCPCS: 72148

== ENCOUNTER 2018-11-28 12:48 | Outpatient (RCR) | payer OTHER ==
[~2018-11-28 12:48] MED LIST changes: -OMEP20CA12 PO; +OMEP20CA13 PO
== END 2018-11-28 13:50 | disposition home or self-care (01) ==
PROVIDERS: ATTEND Registered Nurse
DX: M54.5 Low back pain (principal)

== ENCOUNTER 2018-11-28 12:49 | Outpatient (RCR) | payer OTHER | END 2018-11-28 13:45 | disposition home or self-care (01) | PROVIDERS: ATTEND Nurse Practitioner Family | DX: M25.461 Effusion, right knee (principal) ==

== ENCOUNTER 2019-04-30 08:00 | Outpatient (RCR) | payer OTHER ==
[~2019-04-30 08:00] MED LIST changes: -HOLD METFORMIN - RECEIVED CONTRAST 20 ML VIAL IV SCH; -IOHEXOL 350 MG/ML 100 ML (OMNIPAQUE 350) VIAL IV ONE; +METF500T19 PO; -METF500T8 PO; -NS 100 ML (IVPB) BAG IV ONE; +OMEP-280 PO; -OMEP20CA13 PO; -RT-ALBUTEROL SULF 2.5 MG/3 ML PRE-MIX VIAL INH ONE
== END 2019-05-07 13:00 | disposition home or self-care (01) ==
LOC: CR 08:00
PROVIDERS: ATTEND Internal Medicine Cardiovascular Disease
DX: Z95.828 Presence of other vascular implants and grafts (principal)
CPT/HCPCS: 93798

== ENCOUNTER → 2019-04-30 | Outpatient (CLI) | payer OTHER ==
[~2019-04-30] MED LIST changes: +ASPI-586 PO; +ASPI-999 PO; +CETI1TAB61 PO; +DPAS20025 PO; +HOLD METFORMIN - RECEIVED CONTRAST 20 ML VIAL IV SCH; +IOHEXOL 350 MG/ML 100 ML (OMNIPAQUE 350) VIAL IV ONE; +KRIL1CAP18 PO; +LISI-552 PO; +NS 100 ML (IVPB) BAG IV ONE; +POLY17PO6 PO; +RT-ALBUTEROL SULF 2.5 MG/3 ML PRE-MIX VIAL INH ONE; +SEMA0.25 SQ
[2019-04-30 09:05] LABS: BUN/CREATININE RATIO 15; CREATININE SERUM 1.12 MG/DL (0.60-1.30); GFR ESTIMATED > 60
--- NOTE | 2019-04-30 10:29 | Diagnostic Imaging Report ---
EXAMINATION: CT Chest with intravenous contrast. TECHNIQUE: Multiple contiguous axial images were obtained through the chest after the uneventful administration of intravenous contrast. All CT scans use one or more of the following dose optimizing techniques: automated exposure control, MA and/or KvP adjustment based on a patient size and exam type, or iterative reconstruction. INDICATION: Lung cancer, COPD. COMPARISON: 03/11/2018 FINDINGS: There are postsurgical changes of right upper lobectomy. Lungs are moderately emphysematous with apical bullous disease. There is no edema or pneumonia. No pleural effusion or pneumothorax. There is a stable 5 mm left lower lobe pulmonary nodule (series 4, image 108). Heart size is normal. No pericardial effusion. Aorta is normal in caliber. There is no axillary or supraclavicular lymphadenopathy. There is a stable 15 mm AP window lymph node. Loop recorder is present in the anterior chest wall. There are moderate coronary artery calcifications. Limited views of the upper abdomen are unremarkable. There are no suspicious osseus lesions. IMPRESSION: 1. Status post right upper lobectomy without evidence for recurrent or metastatic disease. 2. Stable mildly enlarged mediastinal lymph nodes. Dictated by: Dictated on workstation # [id number]
== END ==
LOC: RAD 08:28
PROVIDERS: ATTEND Nurse Practitioner Family
DX: J44.9 Chronic obstructive pulmonary disease, unspecified (principal); G47.30 Sleep apnea, unspecified; Z85.118 Personal history of other malignant neoplasm of bronchus and lung; Z72.0 Tobacco use; R59.0 Localized enlarged lymph nodes
CPT/HCPCS: 36415; 71260; 82565; 84520; 94060; 94726; 94729

== ENCOUNTER → 2019-06-10 | Outpatient (CLI) | payer OTHER | LOC: CARD 08:38 | PROVIDERS: ATTEND Internal Medicine Cardiovascular Disease | DX: I25.10 Atherosclerotic heart disease of native coronary artery without angina pectoris (principal); I77.89 Other specified disorders of arteries and arterioles; E11.9 Type 2 diabetes mellitus without complications; I34.0 Nonrheumatic mitral (valve) insufficiency; Z86.73 Personal history of transient ischemic attack (TIA), and cerebral infarction without residual deficits; Z87.891 Personal history of nicotine dependence | CPT/HCPCS: 93306 ==

== ENCOUNTER → 2019-09-16 | Outpatient (CLI) | payer OTHER ==
[~2019-09-16] VITALS: Ht 175 cm; Wt 100.0 kg
[~2019-09-16] MED LIST changes: +CATHETER FLUSH 10 ML SYR IV PRN; +METF-865 PO; -METF500T19 PO; -OMEP-280 PO; +OMEP20CA18 PO; +REGADENOSON 0.4 MG/5 ML SYR (LEXISCAN) IV ONE
[2019-09-16 08:32] VITALS: BP 108/78
--- NOTE | 2019-09-16 14:03 | STRESS TEST ---
DATE OF SERVICE: 09/16/2019 RESTING AND POST REGADENOSON TECHNETIUM-99M TETROFOSMIN SPECT CT IMAGING ORDERING PHYSICIAN: Dr. Serna. PRIMARY PHYSICIAN: Robert Hinojosa APRN CLINICAL DIAGNOSES: Chest discomfort, coronary artery disease. Baseline images were carried out after injection of 10.61 mCi of technetium-99m Tetrofosmin. This was followed by 0.4 mg regadenoson and 29.6 mCi of technetium-99m Tetrofosmin for stress imaging. He reported chest discomfort and shortness of breath following regadenoson infusion, which resolved in a few minutes. Review of images at rest and following stress indicates a small to moderate transient basal inferior perfusion defect. Gated images showed normal global left ventricular systolic function with normal regional wall motion. Left ventricular ejection fraction is calculated to be 73%. Left ventricular end diastolic volume is 64 mL. TID is absent (1.06). CONCLUSIONS: 1. This study is indicative of a small to moderate amount of basal inferior ischemia. 2. Normal regional wall motion. 3. Normal global left ventricular systolic function with a calculated ejection fraction of 73%. Job ID: [id number] DocumentID: [id number] Dictated Date: 09/16/2019 11:39:24 Slasher Sawyer Date: 09/16/2019 14:01:47 Dictated By: DELBERT SERNA MD, MA, FACP, FACC,
== END ==
LOC: CARD 07:06
PROVIDERS: ATTEND Internal Medicine Cardiovascular Disease
DX: I77.89 Other specified disorders of arteries and arterioles (principal); I25.10 Atherosclerotic heart disease of native coronary artery without angina pectoris; Z87.891 Personal history of nicotine dependence
CPT/HCPCS: 78452; 93017

== ENCOUNTER → 2019-10-07 | Outpatient (CLI) | payer OTHER ==
[~2019-10-07] MED LIST changes: -CATHETER FLUSH 10 ML SYR IV PRN; +HOLD METFORMIN - RECEIVED CONTRAST 20 ML VIAL IV SCH; +IOHEXOL 350 MG/ML 100 ML (OMNIPAQUE 350) VIAL IV ONE; +NS 100 ML (IVPB) BAG IV ONE; -REGADENOSON 0.4 MG/5 ML SYR (LEXISCAN) IV ONE
--- NOTE | 2019-10-07 10:44 | Diagnostic Imaging Report ---
PROCEDURE: CT chest with contrast, CT abdomen and pelvis with and without contrast. TECHNIQUE: Pre and post intravenous contrast axial imaging of the abdomen and pelvis and post contrast axial imaging of the chest were performed. Auto Exposure Controls were utilized during the CT exam to meet ALARA standards for radiation dose reduction. INDICATION: Pancreatic cyst and constipation. COMPARISON: Chest CT of 04/30/2019. The most recent abdominal/pelvic comparison is dated 09/01/2014. FINDINGS: CHEST: A few small left lower paratracheal mediastinal nodes are slightly decreased in size with a short axis of 5 mm today, previously 7 to 8 mm. No new or suspicious appearing monica lesion. The small amount of fluid in the superior pericardial recess has decreased. The aorta is patent and nonaneurysmal. There are chronic coronary arterial atherosclerotic calcifications. Centrilobular emphysema in the residual lung parenchyma is noted with no dominant lung mass or acute consolidating pneumonia. ABDOMEN/PELVIS: Some ectasia in the pancreatic duct is stable from the prior exam. A small calcification of 1 to 2 mm at the pancreatic head is unchanged. It is unclear if this is a tiny pancreatolith or if this is a vascular calcification. No identifiable pancreatic mass. No evidence for acute pancreatitis. The intra and extrahepatic bile ducts are unremarkable. The liver parenchyma is unremarkable. The gallbladder is negative. The adrenals and spleen are unremarkable. No abdominal/pelvic mesenteric or retroperitoneal lymphadenopathy. There is no bowel obstruction or ascites. The urinary bladder is unremarkable. There is no suspicious lytic or sclerotic bony lesion. IMPRESSION: CHEST: Stable post operative changes and centrilobular emphysema. Decreased borderline lower paratracheal mediastinal lymph nodes. No suspicious mass or adverse development. ABDOMEN/PELVIS: Some ectasia of the pancreatic duct with nonspecific punctate pancreatic calcifications, stable. No identifiable mass or biliary dilatation. No lymphadenopathy or evidence for metastasis. Dictated by: Dictated on workstation # [id number]
== END ==
LOC: RAD 09:25
PROVIDERS: ATTEND Internal Medicine Hematology & Oncology
DX: C34.30 Malignant neoplasm of lower lobe, unspecified bronchus or lung (principal); J43.2 Centrilobular emphysema; K86.9 Disease of pancreas, unspecified
CPT/HCPCS: 71260; 74178

== ENCOUNTER 2019-11-10 23:02 | Observation (INO) | payer OTHER ==
[~2019-11-10] VITALS: Ht 180 cm; Wt 99.3 kg
[~2019-11-10 23:02] MED LIST changes: -HOLD METFORMIN - RECEIVED CONTRAST 20 ML VIAL IV SCH; -IOHEXOL 350 MG/ML 100 ML (OMNIPAQUE 350) VIAL IV ONE; -NS 100 ML (IVPB) BAG IV ONE
--- NOTE | 2019-11-10 23:18 | NUR ---
INITIAL NIH BY DR. RODRIGUEZ AFTER PT BACK FROM CT. PT TO CT IMMEDIATELY ON ARRIVAL TO ER. NIH = 0.
--- NOTE | 2019-11-10 23:20 | NUR ---
RT DECREASED O2 FROM 4L TO 2L. O2 SAT REMAINS 96-98%.
[2019-11-10 23:42] LABS: BASOPHILS # (AUTO) 0.1 10^3/uL (0.0-0.1); BASOPHILS % (AUTO) 1 % (0-10); EOSINOPHILS # (AUTO) 0.3 10^3/uL (0.0-0.3); EOSINOPHILS % (AUTO) 3 % (0-10); HEMATOCRIT 43 % (40-54); HEMOGLOBIN 14.5 G/DL (13.3-17.7); LYMPHOCYTES # (AUTO) 3.2 X 10^3 (1.0-4.0); LYMPHOCYTES % (AUTO) 29 % (12-44); MEAN CORPUSCULAR HEMOGLOBIN 28 PG (25-34); MEAN CORPUSCULAR HGB CONC 34 G/DL (32-36); MEAN CORPUSCULAR VOLUME 85 FL (80-99); MEAN PLATELET VOLUME 10.5 FL (7.4-10.4); MONOCYTES # (AUTO) 0.9 X 10^3 (0.0-1.0); MONOCYTES % (AUTO) 8 % (0-12); NEUTROPHILS # (AUTO) 6.5 X 10^3 (1.8-7.8); NEUTROPHILS % (AUTO) 59 % (42-75); PLATELET COUNT 264 10^3/uL (130-400); RED CELL DISTRIBUTION WIDTH 16.6 % (10.0-14.5); WHITE BLOOD COUNT 10.9 10^3/uL (4.3-11.0)
[2019-11-10 23:51] LABS: CHLORIDE 103 MMOL/L (98-107); POTASSIUM 4.7 MMOL/L (3.6-5.0); SODIUM 138 MMOL/L (135-145)
[2019-11-10 23:52] LABS: CALCIUM 9.3 MG/DL (8.5-10.1)
[2019-11-10 23:54] LABS: GLUCOSE 126 MG/DL (70-105); TOTAL PROTEIN 7.1 GM/DL (6.4-8.2)
[2019-11-10 23:55] LABS: CARBON DIOXIDE 21 MMOL/L (21-32)
[2019-11-10 23:57] LABS: ALKALINE PHOSPHATASE 155 U/L (40-136); CREATININE SERUM 1.22 MG/DL (0.60-1.30); GFR ESTIMATED 60
[2019-11-10 23:58] LABS: BUN/CREATININE RATIO 19
[2019-11-11] VITALS (20 sets, daily range): BP systolic 92–126; BP diastolic 59–78
[2019-11-11] LABS: ALANINE AMINOTRANSFERASE 16 U/L (0-55)
[2019-11-11 00:26] LABS: FIBRIN DEGRADATION PRODUCTS 1.08 UG/ML (0.00-0.49); INR 1.1 (0.8-1.4)
[2019-11-11] MEDS ORDERED: NS IV 1000 ML 1,000 ML IV SCH (01:30)
--- NOTE | 2019-11-11 02:00 | NUR ---
DR. RODRIGUEZ CALLED PT AT THIS TIME TO UPDATE ON PT STATUS AND PENDING ADMISSION TO ICU CSD ADMIT.
--- NOTE | 2019-11-11 02:03 | ED Neurological Problem ---
General Chief Complaint: Neuro-Stroke Like Symptoms Stated Complaint: POSS STROKE Nursing Triage Note: TO ED [facility]IA [facility] WITH C/O APPROX 2220 PT FELT "WHOLE BODY HEAVINESS", DIFFICULTY SPEAKING, GENERALIZED WEAKNESS. Nursing Sepsis Screen: No Definite Risk Source: patient Exam Limitations: no limitations History of Present Illness Date Seen by Provider: Nov 10, 2019 Time Seen by Provider: 23:05 Initial Comments This 64-year-old gentleman presents to the emergency room the EMS with difficulty speaking, trouble with word finding, and generalized weakness with a last known well time of 22:20. He has a history of stroke and TIA. Fingerstick blood sugar for EMS was 115. He is scheduled to have an elective cardiac catheterization tomorrow by Dr. Serna due to abnormal stress test in August. EMS noted oxygen saturation in the low 90s and apply nasal cannula. He complains of no shortness of breath or chest pain. On arrival speech appears normal but is generally weak. NIH stroke score is zero. Stroke activation was paged. He was taken promptly to CT on arrival. Allergies and Home Medications Allergies Coded Allergies: celery (Unverified Allergy, Severe, ANAPHYLAXIS, 03/29/18) clopidogrel (Verified Allergy, Mild, NAUSEA/HIVES, 03/29/18) ticagrelor (Verified Allergy, Mild, NAUSEA/HIVES, 03/29/18) Home Medications Albuterol Sulfate 1 Puff Puff, 2 PUFF IH Q4H PRN for SHORTNESS OF BREATH, (Reported) Aspirin 81 Mg Tab.chew, 81 MG PO DAILY Prescribed by: SRIDHAR BLACK on 01/08/19 0856 Atorvastatin Calcium 80 Mg Tablet, 80 MG PO HS, (Reported) Calcium Carbonate/Vitamin D3 1 Each Tablet, 1 TAB PO DAILY, (Reported) Cetirizine HCl/Pseudoephedrine 1 Each Tab.er.12h, 1 EACH PO DAILY, (Reported) Fluticasone Propionate 16 Gm [place].susp, 1 SPRAY NS BID, (Reported) Krill/Om-3/Dha/Epa/Phospho/Ast 1 Each Capsule, 1 EACH PO BID, (Reported) Lisinopril 20 Mg Tablet, 20 MG PO DAILY, (Reported) Metformin HCl 500 Mg Tab.er.24h, 500 MG PO BID, (Reported) TAKES 2 (500MG) TABLETS Multivitamin 1 Each Tablet, 1 TAB PO DAILY, (Reported) Naphazoline HCl/Pheniramine 15 Ml Drops, 1 DROP OU DAILY, (Reported) Omeprazole 20 Mg Capsule.dr, 20 MG PO BID, (Reported) Polyethylene Glycol 3350 17 Gm Powd.pack, 17 GM PO DAILY, (Reported) Potassium Gluconate 90 Mg Tablet, 90 MG PO HS, (Reported) Prasugrel HCl 10 Mg Tablet, 10 MG PO DAILY Prescribed by: SRIDHAR BLACK on 01/08/19 0856 Pregabalin 150 Mg Capsule, 150 MG PO TID, (Reported) Semaglutide 0.25 Mg/0.2 Ml Pen.injctr, 0.25 MG SQ WEEKLY, (Reported) TAKES INJECTION ON MONDAYS Patient Home Medication List Home Medication List Reviewed: Yes Review of Systems Review of Systems Constitutional: see HPI, weakness Eyes: No Symptoms Reported Ears, Nose, Mouth, Throat: no symptoms reported Respiratory: no symptoms reported Cardiovascular: no symptoms reported Gastrointestinal: no symptoms reported Genitourinary: no symptoms reported Musculoskeletal: no symptoms reported Skin: no symptoms reported Psychiatric/Neurological: See HPI Endocrine: No Symptoms Reported Hematologic/Lymphatic: No Symptoms Reported Past Veeguls-Hkqnbb-Ffieit Hx Past Med/Social Hx: Reviewed Nursing Past Med/Soc Hx Patient Social History Alcohol Use: Denies Use Number of Drinks Today: Alcohol Beverage of Choice: Wine Recreational Drug Use: Yes Smoking Status: Current Everyday Smoker Type Used: Cigarettes Former Smoker, Quit: Mar 01, 2018 Recent Foreign Travel: No Contact w/Someone Who Travel: No Recent Infectious Disease Expo: No Recent Hopitalizations: No Physical Abuse: No Sexual Abuse: No Mistreated: No Fear: No Immunizations Up To Date Date of Pneumonia Vaccine: Dec 27, 2017 Date of Influenza Vaccine: Jan 28, 2018 Seasonal Allergies Seasonal Allergies: Yes Past Medical History Surgeries: Yes (LOBECTOMY, ARM FX, PINS REMOVED FROM LEG, LOOP RECORDER) Coronary Stent, Orthopedic Respiratory: Yes Sleep Apnea, COPD, Emphysema Currently Using CPAP: Yes Currently Using BIPAP: No Cardiac: Yes Coronary Artery Disease, High Cholesterol, Palpitations Neurological: Yes (MILD MEMORY PROBLEMS; 8-19) Stroke, TIA Reproductive Disorders: No Sexually Transmitted Disease: No HIV/AIDS: No Genitourinary: No Gastrointestinal: Yes Gastroesophageal Reflux Musculoskeletal: Yes Chronic Back Pain Endocrine: Yes Diabetes, Non-Insulin dep HEENT: Yes Chronic Ear Infection Loss of Vision: Bilateral Hearing Impairment: Hard of Hearing, Bilateral Hearing Aide Cancer: Yes Lung What Type of Treatment Did You: Chemotherapy, Surgical Intervention Psychosocial: Yes Depression Integumentary: No Blood Disorders: No Adverse Reaction/Blood Tranf: No (N/A) Family Medical History FH: emphysema 19 FATHER FH: lung cancer 19 FATHER FH: ovarian cancer G8 SISTER Neuroblastoma G8 SISTER Quadrupal cardiac bipass 19 FATHER Heart Disease, Cancer Physical Exam Vital Signs Vital Signs - First Documented 11/10/19 23:02 Temp 36.4 Pulse 89 Resp 16 B/P (MAP) 98/73 (81) Pulse Ox 98 O2 Delivery Nasal Cannula O2 Flow Rate 4.00 Capillary Refill : Less Than 3 Seconds Height, Weight, BMI Height: 5'11.00" Weight: 230lbs. 9.0oz. 104.222004te; 30.00 BMI Method:Stated General Appearance: WD/WN, no apparent distress, other (generalized weakness) HEENT: PERRL/EOMI, normal ENT inspection, pharynx normal Neck: normal inspection Respiratory: lungs clear, normal breath sounds, no respiratory distress, no accessory muscle use Cardiovascular: regular rate, rhythm, no edema, no murmur Gastrointestinal: normal bowel sounds, non tender, soft Extremities: normal inspection, no pedal edema Neurologic/Psychiatric: artificial stone applicator II-XII nml as tested, alert, normal mood/affect, oriented x 3, motor weakness (and generalized mild weakness), other (normal finger to nose and heel to [place]ra) Crainal Nerves: normal hearing, normal speech, PERRL Coordination/Gait: normal finger to nose Motor/Sensory: no sensory deficit Skin: normal color, warm/dry Stroke NIH Stroke Scale Assessment Level of Consciousness: 0=Alert (0), Level of Consciousness-Questions: 0=Answers both month/age (0), LOC Commands: 0=Performs both tasks (0), Gaze: Normal (0), Visual Guy: 0=No visual loss (0), Facial Movement (Facial Paresis): 0=Normal symmetrical mnt (0), Motor Function-Arms Right: 0=No drift (0), Motor Function-Arms Left: 0=No drift (0), Motor Function-Legs Right: 0=No drift (0), Motor Function-Legs Left: 0=No drift (0), Limb Ataxia: 0=Absent (0), Sensory: 0=Normal:no loss (0), Best Language: 0=No aphasia (0), Dysarthria: 0=Normal (0), Extinction & Inattention: 0=No abnormality (0), Total: Stroke Thrombolytic Exclusion Age 18 or Over: Yes Acute intenal hemorrhage: No History of CVA: Yes Uncontrolled Coagulation Defec: No Intracranial Hemorrhage: No Severe Hypertension: No GI or Bleed: No Subarachnoid Hemorrhage: No Intracranial Neoplasm/Aneurysm: No Oral Anticoagulants: No Surgery or Trauma: No Puncture of Non-Compressible V: No Recent CPR: No Diabetic Hemorrhagic Retinopat: No Organ Biopsy: No Recent Obstetric Delivery: No Glucose: No Significant Hepatic Dysfunctio: No NIH Stoke Scale >22: No Bacterial Endocarditis: No Pericarditis: No Improving Symptoms: Yes Platelets: No Progress/Results/Core Measures Results/Orders Lab Results Laboratory Tests Test 11/10/19 23:26 11/10/19 23:31 Range/Units Glucometer 131 H 70-110 MG/DL White Blood Count 10.9 4.3-11.0 10^3/uL Red Blood Count 5.10 4.35-5.85 10^6/uL Hemoglobin 14.5 13.3-17.7 G/DL Hematocrit 43 40-54 % Mean Corpuscular Volume 85 80-99 FL Mean Corpuscular Hemoglobin 28 25-34 PG Mean Corpuscular Hemoglobin Concent 34 32-36 G/DL Red Cell Distribution Width 16.6 H 10.0-14.5 % Platelet Count 264 130-400 10^3/uL Mean Platelet Volume 10.5 H 7.4-10.4 FL Neutrophils (%) (Auto) 59 42-75 % Lymphocytes (%) (Auto) 29 12-44 % Monocytes (%) (Auto) 8 0-12 % Eosinophils (%) (Auto) 3 0-10 % Basophils (%) (Auto) 1 0-10 % Neutrophils # (Auto) 6.5 1.8-7.8 X 10^3 Lymphocytes # (Auto) 3.2 1.0-4.0 X 10^3 Monocytes # (Auto) 0.9 0.0-1.0 X 10^3 Eosinophils # (Auto) 0.3 0.0-0.3 10^3/uL Basophils # (Auto) 0.1 0.0-0.1 10^3/uL Prothrombin Time 15.0 H 12.2-14.7 SEC INR Comment 1.1 0.8-1.4 Activated Partial Thromboplast Time 25 24-35 SEC D-Dimer 1.08 H 0.00-0.49 UG/ML Sodium Level 138 135-145 MMOL/L Potassium Level 4.7 3.6-5.0 MMOL/L Chloride Level 103 98-107 MMOL/L Carbon Dioxide Level 21 21-32 MMOL/L Anion Gap 14 5-14 MMOL/L Blood Urea Nitrogen 23 H 7-18 MG/DL Creatinine 1.22 0.60-1.30 MG/DL Estimat Glomerular Filtration Rate 60 BUN/Creatinine Ratio 19 Glucose Level 126 H 70-105 MG/DL Calcium Level 9.3 8.5-10.1 MG/DL Corrected Calcium 9.3 8.5-10.1 MG/DL Total Bilirubin < 0.1 L 0.1-1.0 MG/DL Aspartate Amino Transf (AST/SGOT) 18 5-34 U/L Alanine Aminotransferase (ALT/SGPT) 16 0-55 U/L Alkaline Phosphatase 155 H 40-136 U/L Troponin I < 0.028 <0.028 NG/ML Total Protein 7.1 6.4-8.2 GM/DL Albumin 4.0 3.2-4.5 GM/DL My Orders Orders - ALEJO RODRIGUEZ MD Cbc With Automated Diff (11/10/19 23:07) Protime With Inr (11/10/19 23:07) Partial Thromboplastin Time (11/10/19 23:07) Comprehensive Metabolic Panel (11/10/19 23:07) Fibrin Degradation Products (11/10/19 23:07) Troponin I (11/10/19 23:07) Ua Culture If Indicated (11/10/19 23:07) Chest 1 View, Ap/Pa Only (11/10/19 23:07) Ekg Tracing (11/10/19 23:07) Nothing By Mouth (11/11/19 Breakfast) Accucheck Stat ONCE (11/10/19 23:07) Ed Iv/Invasive Line Start (11/10/19 23:07) Ed Iv/Invasive Line Start (11/10/19 23:07) Vital Signs Stroke Patient Q15M (11/10/19 23:07) Ct Head Wo-R/O Stroke (11/10/19 23:07) O2 (11/10/19 23:07) Intake & Output 06,14,22 (11/10/19 23:07) Monitor-Rhythm Ecg Trace Only (11/10/19 23:07) Dysphagia Screening Tool (11/10/19 23:07) Post Thrombolytic Adminstratio (11/10/19 23:07) Lipid Panel (11/11/19 06:00) Ns Iv 1000 Ml (Sodium Chloride 0.9%) (11/11/19 01:30) Vital Signs/I&O 11/10/19 11/10/19 23:02 23:15 Temp 36.4 Pulse 89 Resp 16 B/P (MAP) 98/73 (81) Pulse Ox 98 98 O2 Delivery Nasal Cannula Nasal Cannula O2 Flow Rate 4.00 4.00 Blood Pressure Mean: 81 FSBG Bedside Testing Finger Stick Blood Glucose: 131 Blood Glucose Action Taken: DR. RODRIGUEZ NOTIFIED. Progress Progress Note : Progress Note Patient was taken to CT and CT showed no acute abnormalities. NIH score was zero. Weakness gradually improved. I discussed the case with Dr. Billings and with stroke neurologist Dr. Romero at 00:30 and again at 01:04. CT angiogram of the head and neck was not obtained has symptoms were not consistent with a large vessel occlusion. Chart was reviewed and it was noted that arteries of the head and neck were patent on a CT angiogram done less than [address] Romero did recommend doing MR studies including MRA head and neck and MRI brain in the morning. This would also preserve contrast capacity for heart catheter should Dr. Serna elected to proceed with heart catheter. Case was reviewed with Dr. Billings who agrees with observation and consideration for further cardiac studies in the morning. Symptoms improved greatly and he was feeling normal at the time of admission. Initial ECG Impression Date: Nov 10, 2019 Initial ECG Impression Time: 23:31 Initial ECG Rate: 83 Initial ECG Rhythm: Normal Sinus Initial ECG Intervals Slightly prolonged OR interval Comment Sinus rhythm with no ischemic ST elevation or depression. No axis deviation. Diagnostic Imaging Diagonstic Imaging: CT Plain Films/CT/US/NM/MRI: head Comments CT head viewed by me and [employer] report reviewed. No acute abnormalities appreciated. Departure Communication (Admissions) Time/Spoke to Admitting Phy: 01:43 Dr. Vaz Time/Spoke to Consulting Phy: 00:18 Dr. Billings Impression Primary Impression: Expressive aphasia Additional Impression: Generalized weakness Disposition: ADMITTED INPATIENT Condition: Improved Admissions Decision to Admit Reason: Admit from ER (General) Decision to Admit/Date: Nov 11, 2019 Time/Decision to Admit Time: 00:20 Departure-Patient Inst. Referrals: [facility][1]/[facility] [place] (PCP) Primary Care Physician JAYE RIGGS (Family) Primary Care Physician ALEJO RODRIGUEZ MD Nov 11, 2019 02:03
--- OUTSIDE RECORDS SUMMARY | 2019-11-11 02:15 | XMS REPORT ---
Author Author Department [facility] HERBERTH kline Organization Department of [facility] Address [address] [place] [address] Phone Unavailable Care Team Providers Care Statistical Geneticist Name Role Phone ADRIEL HERNANDEZ PCP Unavailable Insurance Providers: All historical and current No Data Provided for This Section Selected Encounter This section includes the information on record at [place] for the Encounter. Date/Time Encounter Type Encounter Description Reason Provider Source Aug 07, 2019 10:40 AM Outpatient Encounter GASTROENTEROLOGY [facility] 15 IHE Encounter Template Text not used by [place] Assessments - Encounter Diagnoses No Data Provided for This Section Plan of Treatment: Future Appointments (+ 6 months) and Future Tests (+/- 45 day s) The Plan of Treatment section includes future care activities for the patient fr om all [place] treatment facilities. This section includes future appointments and fu ture orders which are active, pending or scheduled. Future Appointments This section includes appointments that were scheduled t o occur 6 months from the date of the Encounter, up to a maximum of 20 appointme nts. The data comes from all [place] treatment facilities. Appointment Date/Time Appointment Type Appointment Facili ty Name Sep 23, 2019 11:15 AM AMBULATORY - NONE [facility] Sep 23, 2019 11:30 AM AMBULATORY - MEDICINE [facility] Oct 07, 2019 09:15 AM AMBULATORY - NONE [facility] 15 Dec 31, 2019 11:00 AM AMBULATORY - NONE [facility] Dec 31, 2019 01:15 PM AMBULATORY - MEDICINE [facility] Jan 01, 2020 09:00 AM AMBULATORY - MEDICINE [facility] Jan 27, 2020 01:00 PM AMBULATORY - MEDICINE [facility] Surgical Procedures: All associated to the encounter No Data Provided for This Section Lab Results: +/- 30 days of the encounter No Data Provided for This Section Vital Signs: All taken on the encounter date No Data Provided for This Section Immunizations: All administered on the encounter date No Data Provided for This Section Social History: Smoking Status (Most current) and Tobacco Use (All prior to enco unter date) No Data Provided for This Section Advance Directives: All historical and current No Data Provided for This Section Allergies and Adverse Reactions (ADRs): All historical and current Section Date Range: From patient's date of to the date document was create d. This section includes Allergies and Adverse Reactions (ADR s) on record with [place] for the patient. The data comes from a ll [place] treatment facilities. It does not list Allergies/ADRs that were removed or entered in error. Some allergies/ADRs may be reported in t Immunization section. Allergen Event Date Event Type Reaction(s) Severity Source [place] September 08, 2014 Propensity to adverse reactions to drug (diso rder) [facility] 15 [place] September 08, 2014 Propensity to adverse reactions to drug (diso rder) [facility] 15 Medications: VA dispensed (-15 months) and Non-VA Documented (Obtained Outside A) Section Date Range: 1) prescriptions processed by a VA pharmacy in the last 15 m [facility], and 2) all medications recorded in the [place] medical record as "non-VA medic ations". Pharmacy terms refer to VA pharmacy's work on prescriptions. VA patient s are advised to take their medications as instructed by their health care team. The data comes from all [place] treatment facilities. Glossary of Pharmacy Terms:Active = A prescription that can be filled at the local [place] pharmacy.Active: On Hold = An active prescription that will not be filled until pharmacy resolves the issue.Active: Susp = An active prescription that is not scheduled to be filled yet.Clinic Order = A medication received during a visit to a [place] clinic or emergency department (currently not available).Discontinued = A prescription stopped by a VA provider. It is no longer available to be filled. = A prescription which is too old to fill. This does not refer to the expiration date of the medication in the container. Non-VA = A medication that came from someplace other than a VA pharmacy. This may be a prescription from either the [place] or other providers that was filled outside the [place]. Or, it may be an over the counter (OTC), herbal, dietary supplement or sample medication.Pending = This prescription order has been sent to the Pharmacy for review and is not ready yet. Medication Name and Strength Pharmacy Term Instructions Quantity Or dered Prescription Expires Prescription Number Last Dispense Date Ordering Provider Facility ACCU-CHEK CHARLES PLUS (GLUCOSE) TEST STRIP Active USE 1 STRIP FOR TESTING TWO TIMES PER WEEK - DIRECTED TO TEST BLOOD GLUCOSE 50 Dec 19, 2019 [id number] September 04, 2019 PAMELA RAMSEY ACCU-CHEK CHARLES PLUS (GLUCOSE) TEST STRIP Discontinued USE 1 STRIP FOR TESTING TWO TIMES PER WEEK - DIRECTED TO TEST BLOOD GLUCOSE 50 Jul 25, 2019 [id number] Nov 12, 2018 PAMELA RAMSEY ALBUTEROL SO4 90MCG/ACTUAT (CFC-F) INHL,ORAL,6.7GM Active INHALE 2 PUFFS BY ORAL INHALATION EVERY 4 HOURS NEEDED FOR BREATHING. SHAKE WELL. RINSE MOUTHPIECE FREQUENTLY TO PREVENT CLOGGING. USE NEEDED FOR SHORTNESS OF AIR/WHEEZING FOR BREATHING. SHAKE WELL. RINSE MOUTHPIECE FREQUENTLY TO PREVENT CLOGGING. USE NEEDED FOR SHORTNESS OF AIR/WHEEZING Dec 19, 2019 [id number] September 04, 2019 P[facility]ELA RAMSEY [facility] ALCOHOL PREP PAD Active USE 1 PAD ON SKIN BIW TO CLEAN AND DISINFECT THE SKIN Sep 29, 2020 [id number] Sep 30, 2019 MAURICIO RANKIN [facility] ALCOHOL PREP PAD Discontinued USE 1 PAD ON SKIN BI W TO CLEAN AND DISINFECT THE SKIN 200 Dec 19, 2019 [id number] Jun 06, 2019 [facility]ELA RAM[facility] ALCOHOL PREP PAD Discontinued USE 1 PAD ON SKIN BI W TO CLEAN AND DISINFECT THE SKIN 200 Jul 25, 2019 [id number] Nov 12, 2018 PAMELA RAMSEY ASPIRIN 25MG/DIPYRIDAMOLE 200MG CAP,SA Active T CHAPIN 1 CAPSULE BY MOUTH TWO TIMES A DAY - SWALLOW WHOLE. DO NOT CRUSH OR CHEW. FOR RECURRENT TIA/STROKE 180 Dec 19, 2019 [id number] Dec 20, 2018 PAMELA RAMSEY ASPIRIN 25MG/DIPYRIDAMOLE 200MG CAP,SA Discontinued T CHAPIN 1 CAPSULE BY MOUTH TWO TIMES A DAY - SWALLOW WHOLE. DO NOT CRUSH OR CHEW. FOR RECURRENT TIA/STROKE 180 Feb 06, 2019 [id number] Sep 28, 2018 ZACHARY GRECO V [facility] ASPIRIN 81MG TAB,EC Non- VA TAKE ONE TABLET BY MOUTH ONCE A DAY Non-VA Documented by: PADMA LONG nted at: [facility] ATORVASTATIN CA 80MG TAB Active TAKE ONE TABLET BY MOUTH AT BEDTIME FOR CHOLESTEROL - REPORT ANY UNEXPLAINED MUSCLE PAIN/WEAKNESS TO YOUR PROVIDER 90 Dec 19, 2019 [id number] September 04, 2019 PAMELA RAMSEY ATORVASTATIN CA 80MG TAB Discontinued TAKE ONE TABLET BY MOUTH AT BEDTIME FOR CHOLESTEROL - REPORT ANY UNEXPLAINED MUSCLE PAIN/WEAKNESS TO YOUR PROVIDER 90 Dec 20, 2018 [id number] Nov 12, 2018 PAMELA RAMSEY BUDESONIDE 160MCG/FORMOTEROL FUM 4.5MCG/SPRAY INHL,ORAL,10.2 GM Active INHALE 2 PUFFS BY MOUTH TWO TIMES A DAY FOR BREATHING. SHAKE WELL. RINSE MOUTH AND SPIT AFTER EACH USE. 3 Apr 24, 2020 [id number] August 22, 2019 LISSA OATES [facility] CALCIUM/VITAMIN D TAB No n-VA TAKE BY MOUTH ONCE A DAY Non-V A Documented by: PADMA LONG nted at: [facility] CARBOXYMETHYLCELLULOSE NA 0.5% SOLN,OPH Active INSTILL ONE DROP IN BOTH EYES FOUR TIMES A DAY FOR DRY EYES 15 Feb 01, 2020 [id number] September 03 0 [facility] DICLOFENAC NA 1% GEL,TOP Discontinued APPLY 2 GRAMS A FFECTED AREA TWO TIMES A DAY NEEDED FOR PAIN AND INFLAMMATION. DO NOT EXCEED 16GM DAILY TO ANY AFFECTED JOINT OF LOWER EXTREMITIES. DO NOT EXCEED 8GM DAILY TO ANY AFFECTED JOINT OF UPPER EXTREMITES. DO NOT EXCEED TOTAL DOSE OF 32GM DAILY FOR ALL JOINTS. 100 Oct 31, 2018 [id number] Oct 06, 2018 ANAYELI KIRKPATRICK Luda Juan M BLAS [facility] DICLOFENAC NA 1% GEL,TOP APPLY 2 GRAMS A FFECTED AREA TWO TIMES A DAY NEEDED FOR PAIN AND INFLAMMATION. DO NOT EXCEED 16GM DAILY TO ANY AFFECTED JOINT OF LOWER EXTREMITIES. DO NOT EXCEED 8GM DAILY TO ANY AFFECTED JOINT OF UPPER EXTREMITES. DO NOT EXCEED TOTAL DOSE OF 32GM DAILY FOR ALL JOINTS. 100 Jan 17, 2019 [id number] Dec 20, 2018 PAMELA RAMSEY FLUTICASONE PROPIONATE 50MCG/SPRAY SOLN,NASAL,16GM Active INSTILL 1 SPRAY IN EACH NOSTRIL ONCE A DAY SHAKE GENTLY BEFORE USE! - MUST BE USED DIRECTED FOR 3 WEEKS TO PROVIDE BENEFIT. * NO EARLY REFILLS * 1UNIT = 30DAYS AT 4 PF/DAY OR 60DAYS AT 2PF/DAY 2 Dec 19, 2019 [id number] August 26, 2019 PAMELA RAMSEY KETOTIFEN 0.025% SOLN,OPH Active INSTILL 1 DROP IN BOTH EYES TWO TIMES A DAY FOR RELIEF OF ALLERGY SYMPTOMS IN EYE(S) Feb 01, 2020 [id number] September 04, 2019 [facility] LANCET,SOFTCLIX Active USE LANCET BIW FOR TESTING BL OOD GLUCOSE DIRECTED Sep 29, 2020 [id number] Sep 30, 2019 MAURICIO RANKIN LANCET,SOFTCLIX Discontinued USE LANCET BIW FO R TESTING BLOOD GLUCOSE DIRECTED Dec 19, 2019 [id number] Jun 06, 2019 PAMELA RAMSEY LANCET,SOFTCLIX Discontinued USE LANCET BIW FO R TESTING BLOOD GLUCOSE DIRECTED Jul 25, 2019 [id number] Nov 12, 2018 PAMELA RAMSEY LISINOPRIL 40MG TAB Non- VA TAKE ONE-HALF TABLET BY MOUTH EVERY MORNING Non-VA Documented by: PAMELA RAMSEY Docume nted at: [facility] LORATADINE/PSEUDOEPHEDRINE TAB,SA Non-VA TAKE BY MOUTH No n-VA Documented by: JUAN LANG Docume nted at: [facility] MAGNESIUM OXIDE 250MG TAB Non-VA TAKE 125 TABLETS BY MOUTH ONCE A DAY Non-VA Documented by: PADMA LONG nted at: PR[facility] NESS MONTELUKAST NA 10MG TAB Non-VA TAKE ONE TABLET BY MOUTH EVERY EVENING Non-VA Documented by: PAMELA RAMSEY nted at: [facility] OMEPRAZOLE 20MG CAP,EC Active TAKE 2 CAPSULES B Y MOUTH BEFORE BREAKFAST 30 MINUTES BEFORE EATING TO LOWER STOMACH ACID (REPLACES ACIPHEX) 180 Dec 19, 2019 [id number] August 26, 2019 PAMELA RAMSEY POTASSIUM GLUCONATE TAB Non-VA TAKE 595MG BY MOUTH ONCE A DAY N on-VA Documented by: PADMA LONG nted at: [facility] PRASUGREL HCL 10MG TAB N on-VA TAKE ONE TABLET BY MOUTH ONCE A DAY Non-VA Documented by: KATHERINE MATT Docume nted at: [facility] PREGABALIN 150MG CAP,ORAL Non-VA TAKE 1 CAPSULE BY MOUTH TWO TIMES A DAY Non-VA Docume nted by: PAMELA RAMSEY nted at: [facility] PREGABALIN 150MG CAP,ORAL Non-VA TAKE 1 CAPSULE BY MOUTH TWO TIMES A DAY Non-VA Docume nted by: PAMELA RAMSEY nted at: [facility] SEMAGLUTIDE INJ,SOLN Non -VA INJECT SUBCUTANEOUSLY EVERY WEEK Non-VA Documented by: ANAYELI KIRKPATRICK Docume nted at: [facility] TERBINAFINE HCL 1% CREAM,TOP Active APPLY LIGHT LY TO AFFECTED AREA TWO TIMES A DAY FOR INFECTION 90 Sep 23, 2020 [id number] Sep 24, 2019 ADRIEL HERNANDEZ UREA 20% CREAM,TOP Active APPLY LIGHTLY (20%) TO AFFECTED AREA TWO TIMES A DAY NEEDED TO PROMOTE HEALING,RUB IN UNTIL COMPLETELY ABSORBED*FOR TOPICAL USE ONLY* APPLY TO BOTH FEET DIRECTED. 90 Sep 25, 2020 [id number] Sep 26, 2019 ADRIEL HERNANDEZ Problems (Conditions): All historical and current Section Date Range: From patient's date of to the date document was create d. This section includes a list of Problems (Conditions) know n to [place] for the patient. It includes both active and inacti ve problems (conditions). The data comes from all [place] treatment facilities. Problem Status Problem Code Date of Onset Date of Resolution Comm ent(s) Provider Source Alcohol intake above recommended sensible limits Active 241370538 PADMA LONG [facility] Allergic conjunctivitis Active 350741800 [place] [facility] Bilateral senile combined form cataracts of eyes Active 11329099543 9108 [place] [facility] Bilateral tinnitus Active [id number] CHASTITY JEAN [facility] Coronary arteriosclerosis Active 07894275 September 08, 2014 Entered By: PADMA LONG Comment: hx of ptca to RCA several yrs. agoSeptember 08, 2014 Entered By: PADMA LONG Comment: heart cath 09/01/14, neg. / previous stent to RCA,, via abida meneses [place]s HATCHER, JENNEY R [facility] Diabetes mellitus Active 76270648 PAMELA RAMSEY [facility] Disorder of pancreas Active 6740306 September 08, 2014 Entered By: PADMA LONG Comment: 2.5cm low density lseion in bodyMay 2014 Entered By: PADMA LONG Comment: question of communication with pancreatic ductMay 2014 Entered By: PADMA LONG Comment: favored to be cystic pancreatic cancerMay 2014 Entered By: PADMA LONG Comment: per abdominal CT 09/01/14, via abida meneses,PADMA Pradhan [facility] Dry eyes Active 879205329 [place] [facility] Gastro-esophageal reflux disease without esophagitis ( SNOMED CT 871027470) Active 041794999 ALF GUEVARA [facility] Hyperlipidemia (SNOMED CT 27127186) Active 70450525 PAMELA RAMSEY [facility] Lung mass Active 287465889 September 08, 2014 E ntered By: PADMA LONG Comment: 4.5 cm mass, post. segment right upper lobe.September 08, 2014 Entered By: PADMA LONG Comment: mild adenopathy in mediastinum and bilat. [email or web address] Entered By: PADMA LONG Comment: most likely related to lung cancerMa2014 Entered By: PADMA LONG Comment: per ct angio of chest with contrast 09/01/14,[facility] Entered By: PADMA LONG Comment: per path report- mod. differentiated bronchogenic adenoca. 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 Active 81455585 KATHERINE MATT [facility] Obesity Active 071142662 [place]ULL[place] [facility] Obstructive sleep apnea syndrome (SNOMED CT 03741111) Active 200787 015 [place] [facility] Pancreatic cyst Active 24556396 JAYLENE GUEVARA [facility] Papilloma of right eyelid Active [id number] [facility] [facility] Polyp of colon Active 27159081 Jan 23 16 Entered By: PADMA LONG Comment: c-scope 01/17/16, multiple benign colonic polypsJun 28, 2017 Entered By: PADMA LONG Comment: c-scope,06/25/17,[facility], three benign polyps- sigmoid colon, transverse colon,cecum. see path report cprs SHARRON TORRES [facility] Pulmonary emphysema Active 39691666 0 BRIANA GAVIN [facility] Sensorineural hearing loss, bilateral Active 079168468 CHASTITY JEAN [facility] Snoring Active 05170064 [place] [facility] Type 2 diabetes mellitus without complication Active 829387466 [facility] Environmental Allergies (ICD-9-CM 477.9) Inactive 477.9 Dec 18, 2017 PADMA LONG [facility] External hemorrhoids without mention of complication (ICD-9- CM 455.3) Inactive 455.3 Dec 18, 2017 PADMA LONG [facility] Impotence of organic origin (ICD-9-CM 607.84) Inactive 607.84 Dec 18, 2017 PADMA LONG [facility] Screening for Lipoid disorders (ICD-9-CM V77.91) Inactive V77.91 Jan 18, 2007 PADMA LONG [facility] Stye * (ICD-9-CM 373.11) Inactive 373.11 Dec 18, 201 8 Jan 18, 2007 Entered By: PADMA LONG Comment: bilat lower lids, chronic/recurrent PADMA LONG [facility] Tobacco Use Disorder, Continuous Inactive 305.1 Dec 18, 2017 Jan 18, 2007 Entered By: PADMA LONG Comment: one ppd PADMA LONG [facility] Radiology Reports: +/- 30 days of the encounter No Data Provided for This Section Pathology Reports: +/- 30 days of the encounter No Data Provided for This Section Encounter Notes: All associated encounter notes No Data Provided for This Section
--- OUTSIDE RECORDS SUMMARY | 2019-11-11 02:15 | XMS REPORT ---
Author Author Department of [facility] HERBERTH kline Organization Department of [facility] Address [address] [place] [address] Phone Unavailable Care Team Providers Care Assessor Name Role Phone ADRIEL HERNANDEZ PCP Unavailable Insurance Providers: All historical and current No Data Provided for This Section Selected Encounter This section includes the information on record at [place] for the Encounter. Date/Time Encounter Type Encounter Description Reason Provider Source Mar 21, 2019 09:30 AM Outpatient Encounter [facility] 15 IHE Encounter Template Text not used by MA Assessments - Encounter Diagnoses No Data Provided for This Section Plan of Treatment: Future Appointments (+ 6 months) and Future Tests (+/- 45 day s) The Plan of Treatment section includes future care activities for the patient fr om all [place] treatment facilities. This section includes future appointments and fu ture orders which are active, pending or scheduled. Future Appointments This section includes appointments that were scheduled t o occur 6 months from the date of the Encounter, up to a maximum of 20 appointme nts. The data comes from all [place] treatment facilities. Appointment Date/Time Appointment Type Appointment Facili ty Name Mar 26, 2019 10:00 AM AMBULATORY - NONE [facility] BLAS [facility] Apr 03, 2019 10:00 AM AMBULATORY - SURGERY [facility] Apr 14, 2019 10:00 AM AMBULATORY - SURGERY [facility] Apr 28, 2019 11:00 AM AMBULATORY - NONE [facility]UR BLAS [facility] Jun 25, 2019 11:30 AM AMBULATORY - NONE [facility] BL[facility] Jun 25, 2019 01:15 PM AMBULATORY - MEDICINE [facility] Jul 23, 2019 11:00 [facility] Jul 25, 2019 08:00 AM AMBULATORY - NONE [facility] BLAS [facility] Aug 07, 2019 10:30 AM AMBULATORY - MEDICINE [facility] Active, Pending, and Scheduled Orders This section includes a listing of several types of activ e, pending, and scheduled orders, including clinic medications orders, diagnosti c test orders, procedure orders and consult orders; where the start date of th e order is 45 days before the date of the Encounter or 45 days after the date o f the Encounter. The data comes from all [place] treatment facilities. Test Date/Time Test Type Test Details Facility Name Apr 01, 2019 10:33 AM Consult Order [facility]-[id number] Cons Celery Packer[facility] Choice [facility] Surgical Procedures: All associated to the encounter No Data Provided for This Section Lab Results: +/- 30 days of the encounter This section includes the Chemistry and Hematology Lab R esults on record with MA for the patient. Radiology Reports and Pathology Report s are provided separately, in subsequent sections. Lab Results This section contains the Chemistry/Hematology Results usha t were resulted 30 days before or 30 days after the date of the Encounter. Date/Time Source Result Type Result - Unit Interpretation Reference Range Comment Mar 21, 2019 08:55 AM [facility] HEMOGLOBIN A1C Specimen Type: BLOOD No comment entered. HEMOGLOBIN A1C 6.9 % H 4.0-6.0 Vital Signs: All taken on the encounter [...] Adverse Reactions (ADR s) on record with MA for the patient. The data comes from a ll [place] treatment facilities. It does not list Allergies/ADRs that were removed or entered in error. Some allergies/ADRs may be reported in t he Immunization section. Allergen Event Date Event Type Reaction(s) Severity Source [place] September 08, 2014 Propensity to adverse reactions to drug (diso rder) [facility] [place] September 08, 2014 Propensity to adverse reactions to drug (diso rder) [facility] Medications: VA dispensed (-15 months) and Non-VA Documented (Obtained Outside V A) Section Date Range: 1) prescriptions processed by a VA pharmacy in the last 15 m [facility], and 2) all medications recorded in the MA medical record as "non-VA medic ations". Pharmacy terms refer to [place] pharmacy's work on prescriptions. VA patient s are advised to take their medications as instructed by their health care team. The data comes from all [place] treatment facilities. Glossary of Pharmacy Terms:Active = A prescription that can be filled at the local [place] pharmacy.Active: On Hold = An active prescription that will not be filled until pharmacy resolves the issue.Active: Susp = An active prescription that is not scheduled to be filled yet.Clinic Order = A medication received during a visit to a [place] clinic or emergency department (currently not available).Discontinued [...] may be a prescription from either the VA or other providers that was filled outside the VA. Or, it may be an over the [...] TEST BLOOD GLUCOSE 50 Dec 19, 2019 [id number] September 04, 2019 [facility] ACCU-CHEK CHARLES PLUS (GLUCOSE) TEST STRIP Discontinued USE 1 STRIP FOR TESTING TWO TIMES PER WEEK - DIRECTED TO TEST BLOOD GLUCOSE 50 Jul 25, 2019 [id number] Nov 12, 2018 P[facility]EL[facility] RAMSE[facility] ALBUTEROL SO4 90MCG/ACTUAT (CFC-F) INHL,ORAL,6.7GM Active INHALE 2 PUFFS BY ORAL INHALATION EVERY 4 HOURS NEEDED FOR BREATHING. SHAKE WELL. RINSE MOUTHPIECE FREQUENTLY TO PREVENT CLOGGING. USE NEEDED FOR SHORTNESS OF AIR/WHEEZING FOR BREATHING. SHAKE WELL. RINSE MOUTHPIECE FREQUENTLY TO PREVENT CLOGGING. USE NEEDED FOR SHORTNESS OF AIR/WHEEZING 1 Dec 19, 2019 [id number] September 04, 2019 PAMELA RAMSEY ALCOHOL PREP PAD Active USE 1 PAD ON SKIN BIW TO CLEAN AND DISINFECT THE SKIN 200 Sep 29, 2020 [id number] Sep 30, 2019 CHUCHOMAURICIOLloyd [facility] ALCOHOL PREP PAD Discontinued USE 1 PAD ON SKIN BI W TO CLEAN AND DISINFECT THE SKIN 200 Dec 19, 2019 [id number] Jun 06, 2019 [facility] ALCOHOL PREP PAD Discontinued USE 1 PAD ON SKIN BI W TO CLEAN AND DISINFECT THE SKIN 200 Jul 25, 2019 [id number] Nov 12, 2018 PAMELA RAMSEY ASPIRIN 25MG/DIPYRIDAMOLE 200MG CAP,SA Active T CHAPIN 1 CAPSULE BY MOUTH TWO TIMES A DAY - SWALLOW WHOLE. DO NOT CRUSH OR CHEW. FOR RECURRENT TIA/STROKE 180 Dec 19, 2019 [id number] Dec 20, 2018 PAMELA RAMSEY ASPIRIN 25MG/DIPYRIDAMOLE 200MG CAP,SA Discontinued T CHAPIN 1 CAPSULE BY MOUTH TWO TIMES A DAY - SWALLOW WHOLE. DO NOT CRUSH OR CHEW. FOR RECURRENT TIA/STROKE 180 Feb 06, 2019 [id number] Sep 28, 2018 ZACHARY GRECO [facility] ASPIRIN 81MG TAB,EC Non- VA TAKE ONE TABLET BY MOUTH ONCE A DAY Non-VA Documented by: PADMA LONG nted at: [facility] ATORVASTATIN CA 80MG TAB Active TAKE ONE TABLET BY MOUTH AT BEDTIME FOR CHOLESTEROL - REPORT ANY UNEXPLAINED MUSCLE PAIN/WEAKNESS TO YOUR PROVIDER 90 Dec 19, 2019 [id number] September 04, 2019 PAMELA RAMSEY ATORVASTATIN CA 80MG TAB Discontinued TAKE ONE TABLET BY MOUTH AT BEDTIME FOR CHOLESTEROL - REPORT ANY UNEXPLAINED MUSCLE PAIN/WEAKNESS TO YOUR PROVIDER 90 Dec 20, 2018 [id number] Nov 12, 2018 PAMELA RAMSEY BUDESONIDE 160MCG/FORMOTEROL FUM 4.5MCG/SPRAY INHL,ORAL,10.2 GM Active INHALE 2 PUFFS BY MOUTH TWO TIMES A DAY FOR BREATHING. SHAKE WELL. RINSE MOUTH AND SPIT AFTER EACH USE. 3 Apr 24, 2020 [id number] August 22, 2019 [facility] OATES [facility] CALCIUM/VITAMIN D TAB No n-VA TAKE BY MOUTH ONCE A DAY Non-V A Documented by: PADMA LONG nted at: [facility] CARBOXYMETHYLCELLULOSE NA 0.5% SOLN,OPH Active INSTILL ONE DROP IN BOTH EYES FOUR TIMES A DAY FOR DRY EYES 15 Feb 01, 2020 [id number] September 03 0 NEDA SHAW [facility] DICLOFENAC NA 1% GEL,TOP Discontinued APPLY 2 GRAMS A FFECTED AREA TWO TIMES A DAY NEEDED FOR PAIN AND INFLAMMATION. DO NOT EXCEED 16GM DAILY TO ANY AFFECTED JOINT OF LOWER EXTREMITIES. DO NOT EXCEED 8GM DAILY TO ANY AFFECTED JOINT OF UPPER EXTREMITES. DO NOT EXCEED TOTAL DOSE OF 32GM DAILY FOR ALL JOINTS. 100 Oct 31, 2018 [id number] Oct 06, 2018 ANAYELI KIRKPATRICK [facility] DICLOFENAC NA 1% GEL,TOP APPLY 2 GRAMS A FFECTED AREA TWO TIMES A DAY NEEDED FOR PAIN AND INFLAMMATION. DO NOT EXCEED 16GM DAILY TO ANY AFFECTED JOINT OF LOWER EXTREMITIES. DO NOT EXCEED 8GM DAILY TO ANY AFFECTED JOINT OF UPPER EXTREMITES. DO NOT EXCEED TOTAL DOSE OF 32GM DAILY FOR ALL JOINTS. 100 Jan 17, 2019 [id number] Dec 20, 2018 PAMELA RAMSEY FLUTICASONE PROPIONATE 50MCG/SPRAY SOLN,NASAL,16GM Active INSTILL 1 SPRAY IN EACH NOSTRIL ONCE A DAY SHAKE GENTLY BEFORE USE! - MUST BE USED DIRECTED FOR 3 WEEKS TO PROVIDE BENEFIT. * NO EARLY REFILLS * 1UNIT = 30DAYS AT 4 PF/DAY OR 60DAYS AT 2PF/DAY 2 Dec 19, 2019 [id number] August 26, 2019 P[facility]EL[facility] RAMSEY KETOTIFEN 0.025% SOLN,OPH Active INSTILL 1 DROP IN BOTH EYES TWO TIMES A DAY FOR RELIEF OF ALLERGY SYMPTOMS IN EYE(S) 10 Feb 01, 2020 [id number] September 04, 2019 NED[facility] SH[facility] LANCET,SOFTCLIX Active USE LANCET BIW FOR TESTING BL OOD GLUCOSE DIRECTED 100 Sep 29, 2020 [id number] Sep 30, 2019 CHUCHOMAURICIO FAUSTIN [facility] LANCET,SOFTCLIX Discontinued USE LANCET BIW FO R TESTING BLOOD GLUCOSE DIRECTED 100 Dec 19, 2019 [id number] Jun 06, 2019 PAMELA RAMSEY LANCET,SOFTCLIX Discontinued USE LANCET BIW FO R TESTING BLOOD GLUCOSE DIRECTED 100 Jul 25, 2019 [id number] Nov 12, 2018 [facility] LISINOPRIL 40MG TAB Non- VA TAKE ONE-HALF TABLET BY MOUTH EVERY MORNING Non-VA Documented by: PAMELA RAMSEY nted at: [facility] LORATADINE/PSEUDOEPHEDRINE TAB,SA Non-VA TAKE BY MOUTH No n-VA Documented by: JUAN LANG nted at: [facility] MAGNESIUM OXIDE 250MG TAB Non-VA TAKE 125 [...] ACID (REPLACES ACIPHEX) 180 Dec 19, 2019 [id number] August 26, 2019 PAMELA RAMSEY POTASSIUM GLUCONATE TAB Non-VA TAKE 595MG BY MOUTH ONCE A DAY N on-VA Documented by: PADMA LONG nted at: [facility] PRASUGREL HCL 10MG TAB N on-VA TAKE ONE TABLET BY MOUTH ONCE A DAY Non-VA Documented by: KATHERINE MATT nted at: [facility] PREGABALIN 150MG CAP,ORAL Non-VA TAKE 1 CAPSULE BY MOUTH TWO TIMES A DAY Non-VA Docume nted by: PAMELA RAMSEY Docume nted at: [facility] PREGABALIN 150MG CAP,ORAL Non-VA TAKE 1 CAPSULE BY MOUTH TWO TIMES A DAY Non-VA Docume nted by: PAMELA RAMSEY Docume nted at: [facility] SEMAGLUTIDE INJ,SOLN Non -VA INJECT SUBCUTANEOUSLY EVERY WEEK Non-VA Documented by: ANAYELI KIRKPATRICK Docume nted at: [facility] TERBINAFINE HCL 1% CREAM,TOP Active APPLY LIGHT LY TO AFFECTED AREA TWO TIMES A DAY FOR INFECTION Sep 23, 2020 [id number] Sep 24, 2019 ADRIEL HERNANDEZ UREA 20% CREAM,TOP Active APPLY LIGHTLY (20%) TO AFFECTED AREA TWO TIMES A DAY NEEDED TO PROMOTE HEALING,RUB IN UNTIL COMPLETELY ABSORBED*FOR TOPICAL USE ONLY* APPLY TO BOTH FEET DIRECTED. Sep 25, 2020 [id number] Sep 26, 2019 ADRIEL HERNANDEZ Problems (Conditions): All historical and current Section Date Range: From patient's date of to the date document was create d. This section includes a list of Problems (Conditions) know n to VA for the patient. It includes both active and inacti ve problems (conditions). The data comes from all [place] treatment facilities. Problem Status Problem Code Date of Onset Date of Resolution Comm ent(s) Provider Source Alcohol intake above recommended sensible limits Active 364070279 PADMA LONG [facility] Allergic conjunctivitis Active 733929848 ATLANTANEDA [facility] Bilateral senile combined form cataracts of eyes Active 94289780078 9108 ATLANTAFACUNDONEDA J [facility] Bilateral tinnitus Active 5723527730696 CHASTITY JEAN [facility] Coronary arteriosclerosis Active 34309559 September 08, 2014 Entered By: PADMA LONG Comment: hx of ptca to RCA several yrs. agoSeptember 08, 2014 Entered By: PADMA LONG Comment: heart cath 09/01/14, neg. / previous stent to RCA,, via ab[place] meneses [place] HATCHERJENNEY R [facility] Diabetes mellitus Active 26045317 BRAULIOPAMELA TOMAS [facility] Disorder of pancreas Active 5253339 September 08, 2014 Entered By: PADMA LONG Comment: 2.5cm low density lseion in bodyMay 2014 Entered By: PADMA LONG Comment: question of communication with pancreatic ductMay 2014 Entered By: PADMA LONG Comment: favored to be cystic pancreatic cancerMay 2014 Entered By: PADMA LONG Comment: per abdominal CT 09/01/14, via [place], [place] PADMA LONG Juan M [facility] Dry eyes Active 566408976 NEDA SHAW [facility] [address] Gastro-esophageal reflux disease without esophagitis ( SNOMED CT 209473330) Active 645327232 ALF GUEVARA [facility] [address] Hyperlipidemia (SNOMED CT 16195515) Active 59220519 PAMELA RAMSEY [facility] Lung mass Active 381707613 September 08, 2014 E ntered By: PADMA LONG Comment: 4.5 cm mass, post. segment right upper lobe.September 08, 2014 Entered By: PADMA LONG Comment: mild adenopathy in mediastinum and bilat. [email or web address] Entered By: PADMA LONG Comment: most likely related to lung cancerMa2014 Entered By: PADMA LONG Comment: per ct angio of chest with contrast 09/01/14,via [place], [place]sSep 23, 2014 Entered By: PADMA LONG Comment: per path report- mod. differentiated bronchogenic adenoca. 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 Active 39977173 KATHERINE MATT [facility] Obesity Active 604202794 [facility] BULLOCK [facility] Obstructive sleep apnea syndrome (SNOMED CT 41915176) Active 810533 015 PHILIPPE DOUGLASS [facility] Pancreatic cyst Active 36212676 JAYLENE [facility]UEVARA [facility] Papilloma of right eyelid Active 941549463848504 NEDA SHAW [facility] Polyp of colon Active 20856153 Jan 23 Entered By: PADMA LONG Comment: c-scope 01/17/16, multiple benign colonic polypsJun 28, 2017 Entered By: PADMA LONG Comment: c-scope,06/25/17,[facility], three benign polyps- sigmoid colon, transverse colon,cecum. see path report cprs SHARRON TORRES [place] THAYER [facility] Pulmonary emphysema Active 40395782 0 BRIANA LESLYE [facility] Sensorineural hearing loss, bilateral Active 688707694 CHASTITY JEAN [facility] Snoring Active 84576315 SONG BULLOCK [facility] Type 2 diabetes mellitus without complication Active 445764059 NEDA SHAW [facility] Environmental Allergies (ICD-9-CM 477.9) Inactive 477.9 Dec 18, 2017 PADMA LONG [facility] External hemorrhoids without mention of complication (ICD-9- CM 455.3) Inactive 455.3 Dec 18, 2017 PADMA LONG [facility] Impotence of organic origin (ICD-9-CM 607.84) Inactive 607.84 Dec 18, 2017 PADMA LONG [facility] Screening for Lipoid disorders (ICD-9-CM V77.91) Inactive V77.91 Jan 18, 2007 PADMA LONG [facility] Stye * (ICD-9-CM 373.11) Inactive 373.11 Dec 18, 201 8 Jan 18, 2007 Entered By: PADMA LONG Comment: bilat lower lids, chronic/recurrent PADMA LONG [facility] Tobacco Use Disorder, Continuous Inactive 305.1 Dec 18, 2017 Jan 18, 2007 Entered By: PADMA LONG Comment: one ppd PADMA LONG [facility] Radiology Reports: +/- 30 days of the encounter No Data Provided for This Section Pathology Reports: +/- 30 days of the encounter Pathology Reports For cases when an order for pathology services may have b een completed prior to the date of the Encounter, the report list includes the P athology Reports that were completed up to 30 days before date of the Encounter. For cases when an order for pathology services may have been completed after the date of the Encounter, the report list also includes the Pathology Reports that were completed up to 30 days after date of the Encounter. The data comes from all [facility] facilities. Date/Time Pathology Report Provider Source Apr 03, 2019 11:11 AM SURGICAL PATHOLOGY REPORT : Date Spec taken: Apr 03, 2019 11:11 Pathologist:BRIGID MCGUIRE MD Date Spec rec'd: Apr 03, 2019 11:12 Resident: Date completed: Apr 07, 2019 Accession #: [id number] Submitted by: Practitioner:KATHERINE MATT MD Specimen: 1.RIGHT UPPER CHEEK LOWER EYELID/SUTURE HORZ TO NASAL ASPECT 2.SHAVE BX RIGHT LOWER LID MARGIN Gross Description 1. Received in formalin labeled with the patient's name, corresponding requisition number, and "#1 right upper cheek/lower eyelid" with the accompanying requisition labeled "R upper cheek, lower eyelid - suture horizontal to nasal aspect" is a lightly pigmented, wrinkled, rubbery skin ellipse excision, 1.1 x 0.5 cm with a depth of excision of 0.1 cm. On the skin surface is a centrally located mcgrath, well-circumscribed, slightly raised area of discoloration, 0.3 cm. There is a single suture indicating "horizontal to nasal aspect" and will be hereby referred to as the 6:00 aspect. The surgical margin of excision is inked black with the 9:00 aspect re-inked blue. (1A - 6:00 half; 1B - 12:00 half, toto on edge for Lx2) 2. Received in formalin labeled with the patient's name, corresponding requisition number, and "#2 shave biopsy right lower lid margin" is a single, unoriented, mcgrath, rubbery, irregular skin excision specimen, 0.5 x 0.2 x 0.2 cm. The surgical margin of exc ision is inked black. (2A - toto on edge for Lx3) SF/sh. Microscopic Description (Date Spec taken: Apr 03, 2019 11:11) Microscopic examination is performed. DIAGNOSIS: Specimen: [id number] Spec Type: SURGICAL Abdulkadir: 04/03/19 Rec: 04/03/19-1241 PATHOLOGIC DIAGNOSIS Skin lesion, right upper cheek, biopsy: 1. Seborrheic keratosis, not involving resection margins. 2. Solar elastosis. Skin lesion, right lower mid margin, biopsy: 1. Seborrheic keratosis, with tumor at tissue edge/margin, but with benign features. LL COPIES TO: KATHERINE MATT [facility] PATHOLOGIST CODES: 22135/2 at 1235 The gross and microscopic examinations and interpretation were performed at [facility] Department of Pathology, [address] [place] [id number]. Slides and paraffin blocks are on file at [facility]. =--=--=--=--=--=--=--=--=--=--=--=--=--=--=--=--=--=--=--=--=--=--=--=--=--=-- Performing Laboratory: Surgical Pathology Report Performed By: [facility] [CLIA# [id number]] [address] [place] [id number] [facility] 15 Encounter Notes: All associated encounter notes No Data Provided for This Section
--- OUTSIDE RECORDS SUMMARY | 2019-11-11 02:15 | XMS REPORT | Continuity of Care Document ---
Author [facility] Organization [facility] Address Unknown Phone Unavailable Care Team Providers Care Industrial Safety Engineer Name Role Phone [facility] Unavailable Unavailable Problems Combined list of all problems from all Department of Defense and [facility] facilities. It does not include entries that were removed or entered in error. Problem Status Onset Date Problem Type Date of Resolution Comments Source Alcohol intake above recommended sensible limits [facility] Allergic conjunctivitis Active Condition [place] [facility] [facility] Bilateral senile combined form cataracts of eyes Active [facility] Bilateral tinnitus Active Condition [facility] Coronary arteriosclerosis Active Condition September 08, 2014 Entered By: PADMA LONG Comment: hx of ptca to RCA several yrs. ago September 08, 2014 Entered By: PADMA LONG Comment: heart cath 09/01/14, neg. 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 segment right upper lobe. September 08, 2014 Entered By: PADMA LONG Comment: mild adenopathy in mediastinum and bilat. darby September 08, 2014 Entered By: PADMA LONG Comment: most likely related to lung cancer September 08, 2014 Entered By: PADMA LONG Comment: per ct angio of chest with contrast 09/01/14,via [place], ks Sep 23, 2014 Entered By: PADMA LONG Comment: per path report- mod. differentiated bronchogenic adenoca. 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 see path report cprs [facility] Pulmonary emphysema Active Condition [facility] Sensorineural hearing loss, bilateral Active Condition [facility] Snoring Active Condition [facility] Type 2 diabetes mellitus without complication Active Condition [facility] Environmental Allergies (ICD-9-CM 477.9) Inactive Condition 8 [facility] External hemorrhoids without mention of complication (ICD-9-CM 455.3) Inactive Condition 12/18/2017 [facility] Impotence of organic origin (ICD-9-CM 607.84) Inactive Condition 8 [facility] Screening for Lipoid disorders (ICD-9-CM V77.91) Inactive Condition 7 [facility] Stye * (ICD-9-CM 373.11) Inactive Condition 12/18/2017 Jan 18, 2007 Entered By: PADMA LONG Comment: bilat lower lids, chr onic/recurrent [facility] Tobacco Use Disorder, Continuous I nactive Condition Jan 18, 2007 Entered By: PADMA LONG Comment: one ppd [facility] ICD-10-CM B35.1 Tinea unguium with Provi clotilde Comments: Tinea Unguium active Diagnosis [facility] ICD-10-CM Q45.[address] with Provider Comments: Pancreatic cyst (SCT [id number]) active Diagnosis [facility] ICD-10-CM Z71.3 Dietary counseling and s urveillance with Provider Comments: Dietary counseling and surveillance active Diagnosis [facility] ICD-10-CM D23.112 Other benign neoplasm skin/ right lower eyelid, inc canthus with Provider Comments: Other benign neoplasm of skin of right lower eyelid, including canthus active Diagnosis [facility] ICD-10-CM D48.5 Neoplasm of uncertain be havior of skin with Provider Comments: Neoplasm of uncertain behavior of skin of eyelid (SCT [id number]) active Diagnosis [facility] ICD-10-CM R73.09 Other abnormal glucose with Provider Comments: Abnormal Glucose active Diagnosis [facility] ICD-10-CM G47.33 Obstructive sleep apnea (adult) (pediatric) with Provider Comments: Obstructive sleep apnea (adult) (pediatric) active Diagnosis [facility] ICD-10-CM G47.33 Obstructive sleep apnea (adult) (pediatric) with Provider Comments: Obstructive sleep apnea syndrome (SNOMED CT 43061284) active Diagnosis [facility] ICD-10-CM G47.33 Obstructive sleep apnea (adult) (pediatric) with Provider Comments: Obstructive Sleep Apnea (Adult) (Pediatric) active Diagnosis [facility] ICD-10-CM Z71.[address] counsellor ing with Provider Comments: Other specified Counseling active Diagnosis [facility] ICD-10-CM D48.5 Neoplasm of uncertain be havior of skin with Provider Comments: Neoplasm of uncertain behavior of skin of eyelid (SNOMED CT 36566193) active Diagnosis [facility] ICD-10-CM M51.36 Other intervertebral di sc degeneration, lumbar region with Provider Comments: Other Intervertebral Disc Degeneration, Lumbar Region active Diagnosis [facility] ICD-10-CM E11.9 Type 2 diabetes mellitus without complications with Provider Comments: Type 2 diabetes mellitus without complication (SNOMED CT 306416595) active Diagnosis [facility] ICD-10-CM R68.89 Other general symptoms and signs with Provider Comments: General Symptoms & Signs active Diagnosis [facility] ICD-10-CM K21.9 Gastro-esophageal reflux disease without esophagitis with Provider Comments: Gastro-esophageal reflux disease without esophagitis (SCT [id number]) active Diagnosis [facility] ICD-10-CM I25.10 Athscl heart disease of [place] coronary artery w/o ang pctrs with Provider Comments: Atherosclerotic Heart Disease of [place] Coronary Artery without Angina Pectoris active Diagnosis [facility] ICD-10-CM I25.10 Athscl heart disease of [place] coronary artery w/o ang pctrs with Provider Comments: Athscl Hrt Disease w/o Ang Pctrs active Diagnosis [facility] ICD-10-CM M54.5 Low back pain with Provi clotilde Comments: Low Back Pain active Diagnosis [facility] ICD-10-CM Z86.73 Prsnl hx of TIA (TIA), and cereb infrc w/o resid deficits with Provider Comments: Personal History of Transient Ischemic Attack (Tia), and Cerebral Infarction without Residual Deficits active Diagnosis [facility] ICD-10-CM I25.10 Athscl heart disease of [place] coronary artery w/o ang pctrs with Provider Comments: Coronary arteriosclerosis (SCT [id number]) active Diagnosis [facility] ICD-10-CM Z71.[address] counsellor ing with Provider Comments: Other specified counseling active Diagnosis [facility] ICD-10-CM K22.719 Castellanos's esophagus wi th dysplasia, unspecified with Provider Comments: Castellanos's Esophagus with Dysplasia, unspecified active Diagnosis [facility] ICD-10-CM 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 with Provider Comments: Malignant neoplasm of pancreatic duct active Diagnosis [facility] ICD-10-CM R94.8 Abnormal results of func tion studies of organs and systems with Provider Comments: Abnormal Results of Function Studies of Organs/Systems active Diagnosis [facility] ICD-10-CM K86.2 Cyst of pancreas with Pr ovider Comments: Cyst of pancreas active Diagnosis [facility] ICD-10-CM M25.561 Pain in right knee wit h Provider Comments: Pain in right Knee active Diagnosis [facility] ICD-10-CM Z86.73 Prsnl hx of TIA (TIA), and cereb infrc w/o resid deficits with Provider Comments: Personal Hx of TIA/Cerebral Inf w/o Resid Deficits active Diagnosis ARTUR [facility] ICD-10-CM H90.3 Sensorineural hearing lo ss, bilateral with Provider Comments: Sensorineural hearing loss, bilateral (SCT [id number]) active Diagnosis [facility] ICD-10-CM M54.31 Sciatica, right side wi th Provider Comments: Sciatica, right Side active Diagnosis [facility] Medications Combined list of all outpatient medications recorded within the last 15 months b y all Department of Defense and Veterans Affairs facilities, and also all patien t-reported medications. Medication Details Route Status Patient Instructions Prescription Expires Prescript ion Number Last Dispense Date Ordering Pr ovider Order Date Source ACCU-CHEK CHARLES PLUS (GLUCOSE) TEST STRIP USE 1 STRIP FOR TESTING TWO TIMES PER WEEK - DIRECTED TO TEST BLOOD GLUCOSE ACTIVE 12/19/2019 [id number] 09/04/2019 PAMELA RAMSEY 01/31/2019 [facility] ACCU-CHEK CHARLES PLUS (GLUCOSE) TEST STRIP USE 1 STRIP FOR TESTING TWO TIMES PER WEEK - DIRECTED TO TEST BLOOD GLUCOSE DISCONTINUE 07/25/2019 [id number] 11/12/2018 PAMELA RAMSEY 07/25/2018 [facility] ALBUTEROL SO4 90MCG/ACTUAT (CFC-F) INHL,ORAL,6.7GM INHALE 2 PUFFS BY ORAL INHALATION EVERY 4 HOURS NEEDED FOR BREATHING. SHAKE WELL. RINSE MOUTHPIECE FREQUENTLY TO PREVENT CLOGGING. USE NEEDED FOR SHORTNESS OF AIR/WHEEZING FOR BREATHING. SHAKE WELL. RINSE MOUTHPIECE FREQUENTLY TO PREVENT CLOGGING. USE NEEDED FOR SHORTNESS OF AIR/WHEEZING ACTIVE 12/19/2019 [id number] 09/04/2019 PAMELA RAMSEY 12/20/2018 [facility] ALCOHOL PREP PAD USE 1 PAD ON SKIN BIW TO CLEAN AND DISINFECT THE SKIN ACTIVE 09/29/2020 [id number] 09/30/2019 MAURICIO RANKIN 09/30/2019 [facility] ALCOHOL PREP PAD USE 1 PAD ON SKIN BIW TO CLEAN AND DISINFECT THE SKIN DISCONTINUE 12/19/2019 [id number] 06/06/2019 PAMELA RAMSEY 01/31/2019 [facility] ALCOHOL PREP PAD USE 1 PAD ON SKIN BIW TO CLEAN AND DISINFECT THE SKIN DISCONTINUE 07/25/2019 [id number] 11/12/2018 PAMELA RAMSEY 07/25/2018 [facility] ASPIRIN 25MG/DIPYRIDAMOLE 200MG CAP,SA TAKE 1 CAPSULE BY MOUTH TWO TIMES A DAY - SWALLOW WHOLE. DO NOT CRUSH OR CHEW. FOR RECURRENT TIA/STROKE ACTIVE 12/19/2019 [id number] 12/20/2018 PAMELA RAMSEY 12/20/2018 [facility] ASPIRIN 25MG/DIPYRIDAMOLE 200MG CAP,SA TAKE 1 CAPSULE BY MOUTH TWO TIMES A DAY - SWALLOW WHOLE. DO NOT CRUSH OR CHEW. FOR RECURRENT TIA/STROKE DISCONTINUE 02/06/2019 [id number] 09/28/2018 ZACHARY GRECO 03/06/2018 ARTUR [place] [facility] ASPIRIN 81MG TAB,EC TAKE ONE T ABLET BY MOUTH ONCE A DAY ACTIVE PADMA LONG 09/08/2014 [facility] ATORVASTATIN CA 80MG TAB TAKE ONE TABLET BY MOUTH AT BEDTIME FOR CHOLESTEROL - REPORT ANY UNEXPLAINED MUSCLE PAIN/WEAKNESS TO YOUR PROVIDER ACTIVE 12/19/2019 [id number] 09/04/2019 PAMELA RAMSEY 01/31/2019 [facility] ATORVASTATIN CA 80MG TAB TAKE ONE TABLET BY MOUTH AT BEDTIME FOR CHOLESTEROL - REPORT ANY UNEXPLAINED MUSCLE PAIN/WEAKNESS TO YOUR PROVIDER DISCONTINUE 12/20/2018 [id number] 11/12/2018 PAMELA RAMSEY 12/19/2017 [facility] BUDESONIDE 160MCG/FORMOTEROL FUM 4.5MCG/ SPRAY INHL,ORAL,10.2GM INHALE 2 PUFFS BY MOUTH TWO TIMES A DAY FOR BREATHING. SHAKE WELL. RINSE MOUTH AND SPIT AFTER EACH USE. ACTIVE 04/24/2020 [id number] 08/22/2019 LISSA OATES 04/28/2019 [place] [facility] CALCIUM/VITAMIN D TAB TAKE BY MOUTH ONCE A DAY ACTIVE PADMA LONG 09/08/2014 [facility] CARBOXYMETHYLCELLULOSE NA 0.5% SOLN,OPH INSTILL ONE DROP IN BOTH EYES FOUR TIMES A DAY FOR DRY EYES ACTIVE 01/21 [id number] 09/04/2019 NEDA SHAW 01/31/2019 [facility] DICLOFENAC NA 1% GEL,TOP APPLY 2 GRAMS AFFECTED AREA TWO TIMES A DAY NEEDED FOR PAIN AND INFLAMMATION. DO NOT EXCEED 16GM DAILY TO ANY AFFECTED JOINT OF LOWER EXTREMITIES. DO NOT EXCEED 8GM DAILY TO ANY AFFECTED JOINT OF UPPER EXTREMITES. DO NOT EXCEED TOTAL DOSE OF 32GM DAILY FOR ALL JOINTS. DISCONTINUE 10/31/2018 [id number] 10/06/2018 ANAYELI KIRKPATRICK 10/06/2018 [facility] DICLOFENAC NA 1% GEL,TOP APPLY 2 GRAMS AFFECTED AREA TWO TIMES A DAY NEEDED FOR PAIN AND INFLAMMATION. DO NOT EXCEED 16GM DAILY TO ANY AFFECTED JOINT OF LOWER EXTREMITIES. DO NOT EXCEED 8GM DAILY TO ANY AFFECTED JOINT OF UPPER EXTREMITES. DO NOT EXCEED TOTAL DOSE OF 32GM DAILY FOR ALL JOINTS. 01/17/2019 [id number] 12/20/2018 PAMELA RAMSEY 12/20/2018 [facility] FLUTICASONE PROPIONATE 50MCG/SPRAY SOLN,NASAL,16GM INSTILL 1 SPRAY IN EACH NOSTRIL ONCE A DAY SHAKE GENTLY BEFORE USE! - MUST BE USED DIRECTED FOR 3 WEEKS TO PROVIDE BENEFIT. * NO EARLY REFILLS * 1UNIT = 30DAYS AT 4 PF/DAY OR 60DAYS AT 2PF/DAY ACTIVE 11/22 [id number] 08/26/2019 PAMELA RAMSEY 12/20/2018 [facility] KETOTIFEN 0.025% SOLN,OPH INST ILL 1 DROP IN BOTH EYES TWO TIMES A DAY FOR RELIEF OF ALLERGY SYMPTOMS IN EYE(S) ACTIVE 02/01/2020 [id number] 09/04/2019 NEDA SHAW 01/31/2019 [facility] LANCET,SOFTCLIX USE LANCET BIW FOR TESTING BLOOD GLUCOSE DIRECTED ACTIVE 09/29/2020 [id number] 09/30/2019 MAURICIO RANKIN 09/30/2019 [facility] LANCET,SOFTCLIX USE LANCET BIW FOR TESTING BLOOD GLUCOSE DIRECTED DISCONTINU E 12/19/2019 [id number] 06/06/2019 PAMELA RAMSEY 01/31/2019 [facility] LANCET,SOFTCLIX USE LANCET BIW FOR TESTING BLOOD GLUCOSE DIRECTED DISCONTINU E 07/25/2019 [id number] 11/12/2018 PAMELA RAMSEY 07/25/2018 [facility] LISINOPRIL 40MG TAB TAKE ONE-H OCTAVIO TABLET BY MOUTH EVERY MORNING ACTIVE PAMELA RAMSEY 12/18/2018 [facility] LORATADINE/PSEUDOEPHEDRINE TAB,SA TAKE BY MOUTH ACTIVE JUAN LANG 08/07/2019 [facility] MAGNESIUM OXIDE 250MG TAB TAKE 125 TABLETS BY MOUTH ONCE A DAY ACTIVE PADMA LONG 09/08/2014 [facility] MONTELUKAST NA 10MG TAB TAKE O NE TABLET BY MOUTH EVERY EVENING ACTIVE PAMELA RAMSEY 12/18/2017 [facility] OMEPRAZOLE 20MG CAP,EC TAKE 2 CAPSULES BY MOUTH BEFORE BREAKFAST 30 MINUTES BEFORE EATING TO LOWER STOMACH ACID (REPLACES ACIPHEX) ACTIVE 12/19/2019 [id number] 08/26/2019 PAMELA RAMSEY 12/20/2018 [facility] POTASSIUM GLUCONATE TAB TAKE 5 95MG BY MOUTH ONCE A DAY ACTIVE PADMA LONG 09/08/2014 [facility] PRASUGREL HCL 10MG TAB TAKE ON E TABLET BY MOUTH ONCE A DAY ACTIVE KATHERINE MATT 03/11/2019 [facility] PREGABALIN 150MG CAP,ORAL TAKE 1 CAPSULE BY MOUTH TWO TIMES A DAY ACTIVE PAMELA RAMSEY 03/07/2018 [facility] PREGABALIN 150MG CAP,ORAL TAKE 1 CAPSULE BY MOUTH TWO TIMES A DAY ACTIVE PAMELA RAMSEY 12/18/2017 [facility] SEMAGLUTIDE INJ,SOLN INJECT S UBCUTANEOUSLY EVERY WEEK ACTIVE ANAYELI KIRKPATRICK 10/01/2018 [facility] TERBINAFINE HCL 1% CREAM,TOP A PPLY LIGHTLY TO AFFECTED AREA TWO TIMES A DAY FOR INFECTION ACTIVE 06/2020 [id number] 09/24/2019 ADRIEL HERNANDEZ 09/24/2019 [facility] UREA 20% CREAM,TOP APPLY LIGHT LY (20%) TO AFFECTED AREA TWO TIMES A DAY NEEDED TO PROMOTE HEALING,RUB IN UNTIL COMPLETELY ABSORBED*FOR TOPICAL USE ONLY* APPLY TO BOTH FEET DIRECTED. ACTIVE 09/25/2020 [id number] 09/26/2019 ADRIEL HERNANDEZ 09/26/2019 [facility] Allergies, Adverse Reactions, Alerts Combined list of all allergies from all Department of Defense and Veterans Affairs facilities. It does not include entries that were removed or entered in error. Substance Category R eaction Severity Reaction type Status Date Reported Comments Source [place] Propensity to adverse codie ctions to drug (disorder) Propensity to adverse reactions to drug (disorder) active 09/08/2014 [facility], VISN 15 [place] Propensity to adverse react ions to drug (disorder) Propensity to adve rse reactions to drug (disorder) active 09/08/2014 [facility], SN 15 Immunizations Combined list of: 1) all immunizations on record at all [facility] ies, and 2) all available immunizations on record at Department of Defense (Do D) facilities. Some immunizations on record at [facility] may not be included. Immunization Series Date Given Administered By Site Reaction Lot Number CVX Code Drug Audio Visual Director Status Comments Source INFLUENZA, INJECTABLE, QUADRIVALENT, PRESERVATIVE FREE 01/28/2019 150 completed Partner: [facility]. Administere d by: [facility] (NPI=Not Provided). Partner Lot#: [id number] Mfr: [employer] [facility] INFLUENZA, INJECTABLE, QUADRIVALENT, PRESERVATIVE FREE 01/15/2018 150 completed [facility]. Administere d [facility]: [facility] (NPI=Not Provided). Partner Lot#: [id number] Mfr: [employer] [facility] INFLUENZA, UNSPECIFIED FORMULATION 12/22/2017 88 completed [facility], VISN 15 PNEUMOCOCCAL POLYSACCHARIDE PPV23 12/18/2017 33 completed [facility] INFLUENZA, UNSPECIFIED FORMULATION 04/26/2017 88 completed [facility] INFLUENZA, INJECTABLE, MDCK, PRESERVATIV E FREE, QUADRIVALENT 03/23/2017 171 complet ed Partner: [facility]. Administered by: Emilia [facility] Clinician (NPI=Not Provided). Partner Lot#: [id number] Mfr: [facility] TDAP 2016 115 completed [facility] INFLUENZA, UNSPECIFIED FORMULATION 02/05/2016 88 completed [facility], VISN 15 INFLUENZA, UNSPECIFIED FORMULATION 02/21/2015 88 completed [facility], VISN 15 PNEUMOCOCCAL CONJUGATE PCV 13 09/08/2014 133 completed [facility] INFLUENZA, UNSPECIFIED FORMULATION 01/24/2014 88 completed [facility], VISN 15 TD(ADULT) UNSPECIFIED FORMULATION 10/05/2005 139 completed [facility] TETANUS TOXOID, UNSPECIFIED FORMULATION 10/05/2005 112 completed [facility] Results Combined list of recent chemistry, hematology and other laboratory results going back no more than 15 months from the Department of Defense and Veterans Affairs facilities. Order Name Results Value Reference Range Date Interpretation Specimen Comments Source HEMOGLOBIN A1C HEMOGLOBIN A1C/ HEMOGLOBIN.TOTAL IN BLOOD BY HPLC 6.7 % 4.0 - 6.0 09/23/2019 H Specimen Type: BLOOD No comment entered. [facility] PROSTATIC SPECIFIC ANTIGEN(TOTAL) PROSTATE SPECIFIC AG [MASS/VOLUME] IN SERUM OR PLASMA 1.1 ng/mL 0 - 4 09/23/2019 Specimen Type: SERUM No comment entered. [facility] TSH THYROTROPIN [UNITS/VOLUME] IN SE RUM OR PLASMA 0.67 uIU/mL 0.47 - 5.00 09/23/2019 Specimen Type: SERUM No comment entered. [facility] LIPID PROFILE(HDL,TRIG,CHOL,LDL) CHOLESTEROL [MASS/VOLUME] IN SERUM OR PLASMA 137 mg/dL 0 - 200 09/23/2019 Specimen Type: PLASMA Comment: For eGFR: eGFR results >60 are imprecise. Many variables affect the calculated result. Interpretation of eGFR results >60 must be monitored over time. [facility] LIPID PROFILE(HDL,TRIG,CHOL,LDL) TRIGLYCERIDE [MASS/VOLUME] IN SERUM OR PLASMA 167 mg/dL 0 - 150 09/23/2019 H Specimen Type: PLASMA Comment: For eGFR: eGFR results >60 are imprecise. Many variables affect the calculated result. Interpretation of eGFR results >60 must be monitored over time. [facility] LIPID PROFILE(HDL,TRIG,CHOL,LDL) CHOLESTEROL IN HDL [MASS/VOLUME] IN SERUM OR PLASMA 36 mg/dL 09/23/2019 L Specimen Type: PLASMA Comment: For eGFR: eGFR results >60 are imprecise. Many variables affect the calculated result. Interpretation of eGFR results >60 must be monitored over time. [facility] LIPID PROFILE(HDL,TRIG,CHOL,LDL) CHOLESTEROL IN LDL [MASS/VOLUME] IN SERUM OR PLASMA BY CALCULATION 68 mg/dL 0 - 99.9 09/23/2019 Specimen Type: PLASMA Comment: For eGFR: eGFR results >60 are imprecise. Many variables affect the calculated result. Interpretation of eGFR results >60 must be monitored over time. [facility] URINALYSIS COLOR OF URINE Yello w 09/23/2019 Specimen Type: URINE No comment entered. [facility] URINALYSIS SPECIFIC GRAVITY OF URINE 1.009 09/23/2019 Specimen Type: URINE No comment entered. [facility] URINALYSIS UROBILINOGEN [MASS/VOLUME ] IN URINE Negativemg/dL 0.1 - 1.0 09/23/2019 Specimen Type: URINE No comment entered. [facility] URINALYSIS BILIRUBIN.TOTAL [OR ESENCE] IN URINE BY TEST STRIP Negative 0 09/23/2019 Specimen Type: URINE No comment entered. [facility] URINALYSIS KETONES [MASS/VOLUME] IN URINE BY TEST STRIP Negativemg/dl 09/23/2019 Specimen Type: URINE No comment entered. [facility] URINALYSIS GLUCOSE [MASS/VOLUME] IN URINE BY TEST STRIP Negativemg/dL 09/23/2019 Specimen Type: URINE No comment entered. [facility] URINALYSIS PROTEIN [MASS/VOLUME] IN URINE BY TEST STRIP Negativemg/dl - Trace" 09/23/2019 Specimen Type: URINE No comment entered. [facility] URINALYSIS PH OF URINE BY TEST STRIP 6.0 09/23/2019 Specimen Type: URINE No comment entered. [facility] URINALYSIS APPEARANCE OF URINE Clear 09/23/2019 Specimen Type: URINE No comment entered. [facility] URINALYSIS HEMOGLOBIN [PRESENCE] IN URINE Negative 09/23/2019 Specimen Type: URINE No comment entered. [facility] URINALYSIS NITRITE [PRESENCE] IN URI NE BY TEST STRIP Negative 09/23/2019 Specimen T ype: URINE No comment entered. [facility] URINALYSIS LEUKOCYTE ESTERASE [PRESENCE] IN URINE BY TEST STRIP Negative 0 09/23/2019 Specimen Type: URINE No comment entered. [employer] MICROALBUMIN ([place]) RANDOM URINE MICROALBUMIN [MASS/VOLUME] IN URINE < 5ug/mL 09/23/2019 Specimen Type: URINE Comment: Microalbumin is below the linearity of the instrument, unable to calculate the albumin/creatinine ratio. [employer] MICROALBUMIN ([place]) RANDOM URINE MICROALBUMIN/CREATININE [MASS RATIO] IN URINE cancmcg/mg cr 09/23/2019 Specimen Type: URINE Comment: Microalbumin is below the linearity of the instrument, unable to calculate the albumin/creatinine ratio. [employer] MICROALBUMIN ([place]) RANDOM URINE PROTEIN [MASS/VOLUME] IN URINE < 6.8mg/dL 09/23/2019 Specimen Type: URINE Comment: Microalbumin is below the linearity of the instrument, unable to calculate the albumin/creatinine ratio. [employer] MICROALBUMIN ([place]) RANDOM URINE CREATININE [MASS/VOLUME] IN URINE 37.4 mg/dL 09/23/2019 Specimen Type: URINE Comment: Microalbumin is below the linearity of the instrument, unable to calculate the albumin/creatinine ratio. [employer] COMPREHENSIVE METABOLIC PANEL CREATININE [MASS/VOLUME] IN SERUM OR PLASMA 1.00 mg/dL 0.7 - 1.3 09/23/2019 Specimen Type: PLASMA Comment: For eGFR: eGFR results >60 are imprecise. Many variables affect the calculated result. Interpretation of eGFR results >60 must be monitored over time. [employer] COMPREHENSIVE METABOLIC PANEL UREA NITROGEN [MASS/VOLUME] IN SERUM OR PLASMA 17 mg/dL 9 - 25 09/23/2019 Specimen Type: PLASMA Comment: For eGFR: eGFR results >60 are imprecise. Many variables affect the calculated result. Interpretation of eGFR results >60 must be monitored over time. [employer] COMPREHENSIVE METABOLIC PANEL GLUCOSE [MASS/VOLUME] IN SERUM OR PLASMA 98 mg/dL 72 - 99 09/23/2019 Specimen Type: PLASMA Comment: For eGFR: eGFR results >60 are imprecise. Many variables affect the calculated result. Interpretation of eGFR results >60 must be monitored over time. [employer] COMPREHENSIVE METABOLIC PANEL SODIUM [MOLES/VOLUME] IN SERUM OR PLASMA 138 mEq/L 136 - 145 09/23/2019 Specimen Type: PLASMA Comment: For eGFR: eGFR results >60 are imprecise. Many variables affect the calculated result. Interpretation of eGFR results >60 must be monitored over time. [facility] COMPREHENSIVE METABOLIC PANEL POTASSIUM [MOLES/VOLUME] IN SERUM OR PLASMA 4.5 mEq/L 3.5 - 5.0 09/23/2019 Specimen Type: PLASMA Comment: For eGFR: eGFR results >60 are imprecise. Many variables affect the calculated result. Interpretation of eGFR results >60 must be monitored over time. [facility] COMPREHENSIVE METABOLIC PANEL CALCIUM [MASS/VOLUME] IN SERUM OR PLASMA 9.4 mg/dL 8.4 - 10.4 09/23/2019 Specimen Type: PLASMA Comment: For eGFR: eGFR results >60 are imprecise. Many variables affect the calculated result. Interpretation of eGFR results >60 must be monitored over time. [facility] COMPREHENSIVE METABOLIC PANEL PROTEIN [MASS/VOLUME] IN SERUM OR PLASMA 7.3 g/dL 6.0 - 8.6 09/23/2019 Specimen Type: PLASMA Comment: For eGFR: eGFR results >60 are imprecise. Many variables affect the calculated result. Interpretation of eGFR results >60 must be monitored over time. [facility] COMPREHENSIVE METABOLIC PANEL ALBUMIN [MASS/VOLUME] IN SERUM OR PLASMA 4.1 g/dl 3.4 - 5.0 09/23/2019 Specimen Type: PLASMA Comment: For eGFR: eGFR results >60 are imprecise. Many variables affect the calculated result. Interpretation of eGFR results >60 must be monitored over time. [facility] [employer] METABOLIC PANEL BILIRUBIN.TOTAL [MASS/VOLUME] IN SERUM OR PLASMA 0.3 mg/dL 0.2 - 1.2 09/23/2019 Specimen Type: PLASMA Comment: For eGFR: eGFR results >60 are imprecise. Many variables affect the calculated result. Interpretation of eGFR results >60 must be monitored over time. [facility] COMPREHENSIVE METABOLIC PANEL ASPARTATE AMINOTRANSFERASE [ENZYMATIC ACTIVITY/VOLUME] IN SERUM OR PLASMA 19 U/L 5 - 34 09/23/2019 Specimen Type: PLASMA Comment: For eGFR: eGFR results >60 are imprecise. Many variables affect the calculated result. Interpretation of eGFR results >60 must be monitored over time. [facility] COMPREHENSIVE METABOLIC PANEL ALANINE AMINOTRANSFERASE [ENZYMATIC ACTIVITY/VOLUME] IN SERUM OR PLASMA 16 U/L 8 - 40 09/23/2019 Specimen Type: PLASMA Comment: For eGFR: eGFR results >60 are imprecise. Many variables affect the calculated result. Interpretation of eGFR results >60 must be monitored over time. [employer] COMPREHENSIVE METABOLIC PANEL ANION GAP IN SERUM OR PLASMA 8.9 2019 Specimen T ype: PLASMA Comment: For eGFR: eGFR results >60 are imprecise. Many variables affect the calculated result. Interpretation of eGFR results >60 must be monitored over time. [employer] COMPREHENSIVE METABOLIC PANEL CHLORIDE [MOLES/VOLUME] IN SERUM OR PLASMA 104 mEq/L 98 - 107 09/23/2019 Specimen Type: PLASMA Comment: For eGFR: eGFR results >60 are imprecise. Many variables affect the calculated result. Interpretation of eGFR results >60 must be monitored over time. [employer] COMPREHENSIVE METABOLIC PANEL "CARBON DIOXIDE, TOTAL [MOLES/VOLUME] IN SERUM OR PLASMA" 25.1 mEq/L 22 - 31 09/23/2019 Specimen Type: PLASMA Comment: For eGFR: eGFR results >60 are imprecise. Many variables affect the calculated result. Interpretation of eGFR results >60 must be monitored over time. [facility] COMPREHENSIVE METABOLIC PANEL ALKALINE PHOSPHATASE [ENZYMATIC ACTIVITY/VOLUME] IN SERUM OR PLASMA 154 U/L 40 - 150 09/23/2019 H Specimen Type: PLASMA Comment: For eGFR: eGFR results >60 are imprecise. Many variables affect the calculated result. Interpretation of eGFR results >60 must be monitored over time. [facility] COMPREHENSIVE METABOLIC PANEL GLOMERULAR FILTRATION RATE/1.73 SQ M.PREDICTED [VOLUME RATE/AREA] IN SERUM OR PLASMA BY CREATININE- BASED FORMULA (MDRD) >60 09/23/2019 Specimen Type: PLASMA Comment: For eGFR: eGFR results >60 are imprecise. Many variables affect the calculated result. Interpretation of eGFR results >60 must be monitored over time. [employer] CBC & DIFF LEUKOCYTES [#/VOLUM E] IN BLOOD BY AUTOMATED COUNT 9.2 K/cmm 3.60 - 11.20 09/23/2019 Specimen Type: BLOOD No comment entered. [employer] CBC & DIFF ERYTHROCYTES [#/VOL UME] IN BLOOD BY AUTOMATED COUNT 5.45 M/ul 4.1 - 5.7 09/23/2019 Specimen Type: BLOOD No comment entered. [employer] CBC & DIFF HEMOGLOBIN [MASS/VOLUME] IN BLOOD 15.1 g/dl 13.1 - 16.8 09/23/2019 Specimen T ype: BLOOD No comment entered. [employer] CBC & DIFF HEMATOCRIT [VOLUME FRACTION] OF BLOOD BY AUTOMATED COUNT 46.0 % 38.2 - 48.4 09/23/2019 Specimen Type: BLOOD No comment entered. [facility] CBC & DIFF MCV [ENTITIC VOLUME] BY A UTOMATED COUNT 84.4 fl 80.1 - 98.5 09/23/2019 Specimen Type: BLOOD No comment entered. [facility] CBC & DIFF MCH [ENTITIC MASS] BY AUT OMATED COUNT 27.7 pg 27.0 - 34.0 09/23/2019 Specimen T ype: BLOOD No comment entered. [facility] CBC & DIFF MCHC [MASS/VOLUME] BY AUT OMATED COUNT 32.8 g/dl 33.0 - 36.0 09/23/2019 L Specimen Type: BLOOD No comment entered. [facility] CBC & DIFF PLATELETS [#/VOLUME ] IN BLOOD BY AUTOMATED COUNT 260 K/cmm 150 - 400 09/23/2019 Specimen Type: BLOOD No comment entered. [facility] CBC & DIFF PLATELET MEAN VOLUM E [ENTITIC VOLUME] IN BLOOD BY AUTOMATED COUNT 11.4 fl 7.5 - 11.2 09/23/2019 H Specimen Type: BLOOD No comment entered. [facility] CBC & DIFF ERYTHROCYTE DISTRIB UTION WIDTH [RATIO] BY AUTOMATED COUNT 16.2 % 11.8 - 15.1 09/23/2019 H Specimen Type: BLOOD No comment entered. [facility] CBC & DIFF LYMPHOCYTES/100 IVY KOCYTES IN BLOOD BY AUTOMATED COUNT 27.8 % 09/23/2019 Specimen Type: BLOOD No comment entered. [facility] CBC & DIFF NEUTROPHILS/100 IVY KOCYTES IN BLOOD BY AUTOMATED COUNT 57.4 % 09/23/2019 Specimen Type: BLOOD No comment entered. [facility] CBC & DIFF MONOCYTES/100 LEUKO CYTES IN BLOOD BY AUTOMATED COUNT 9.2 % 09/23/2019 Specimen Type: BLOOD No comment entered. [facility] CBC & DIFF MONOCYTES [#/VOLUME ] IN BLOOD BY AUTOMATED COUNT 0.9 K/cmm 0.19 - 0.80 09/23/2019 H Specimen Type: BLOOD No comment entered. [facility] CBC & DIFF NEUTROPHILS [#/VOLU ME] IN BLOOD BY AUTOMATED COUNT 5.3 K/cmm 2.10 - 8.00 09/23/2019 Specimen Type: BLOOD No comment entered. [facility] CBC & DIFF EOSINOPHILS [#/VOLU ME] IN BLOOD BY AUTOMATED COUNT 0.4 K/cmm 0.00 - 0.60 09/23/2019 Specimen Type: BLOOD No comment entered. [facility] CBC & DIFF BASOPHILS [#/VOLUME ] IN BLOOD BY AUTOMATED COUNT 0.1 K/cmm 0.00 - 0.20 09/23/2019 Specimen Type: BLOOD No comment entered. [facility] CBC & DIFF EOSINOPHILS/100 IVY KOCYTES IN BLOOD BY AUTOMATED COUNT 4.4 % 09/23/2019 Specimen Type: BLOOD No comment entered. [facility] CBC & DIFF BASOPHILS/100 LEUKO CYTES IN BLOOD BY AUTOMATED COUNT 0.9 % 09/23/2019 Specimen Type: BLOOD No comment entered. [facility] CBC & DIFF LYMPHOCYTES [#/VOLU ME] IN BLOOD BY AUTOMATED COUNT 2.6 K/cmm 0.77 - 4.50 09/23/2019 Specimen Type: BLOOD No comment entered. [facility] CBC & DIFF IMMATURE GRANULOCYT ES [#/VOLUME] IN BLOOD BY AUTOMATED COUNT 0.03 K/cmm 0.00 - 0.05 09/23/2019 Specimen Type: BLOOD No comment entered. [facility] CBC & DIFF IMMATURE GRANULOCYT ES/100 LEUKOCYTES IN BLOOD BY AUTOMATED COUNT 0.3 % 09/23/2019 Specimen Type: BLOOD No comment entered. [facility] CBC & DIFF LEUKOCYTES [#/VOLUM E] IN BLOOD BY AUTOMATED COUNT 7.8 K/cmm 3.60 - 11.20 06/25/2019 Specimen Type: BLOOD No comment entered. [facility] CBC & DIFF ERYTHROCYTES [#/VOL UME] IN BLOOD BY AUTOMATED COUNT 5.61 M/ul 4.1 - 5.7 06/25/2019 Specimen Type: BLOOD No comment entered. [facility] CBC & DIFF HEMOGLOBIN [MASS/VOLUME] IN BLOOD 15.2 g/dl 13.1 - 16.8 06/25/2019 Specimen T ype: BLOOD No comment entered. [facility] CBC & DIFF HEMATOCRIT [VOLUME FRACTION] OF BLOOD BY AUTOMATED COUNT 47.6 % 38.2 - 48.4 06/25/2019 Specimen Type: BLOOD No comment entered. [facility] CBC & DIFF MCV [ENTITIC VOLUME] BY A UTOMATED COUNT 84.8 fl 80.1 - 98.5 06/25/2019 Specimen Type: BLOOD No comment entered. [facility] CBC & DIFF MCH [ENTITIC MASS] BY AUT OMATED COUNT 27.1 pg 27.0 - 34.0 06/25/2019 Specimen T ype: BLOOD No comment entered. [facility] CBC & DIFF MCHC [MASS/VOLUME] BY AUT OMATED COUNT 31.9 g/dl 33.0 - 36.0 06/25/2019 L Specimen Type: BLOOD No comment entered. [facility] CBC & DIFF PLATELETS [#/VOLUME ] IN BLOOD BY AUTOMATED COUNT 270 K/cmm 150 - 400 06/25/2019 Specimen Type: BLOOD No comment entered. [facility] CBC & DIFF PLATELET MEAN VOLUM E [ENTITIC VOLUME] IN BLOOD BY AUTOMATED COUNT 10.6 fl 7.5 - 11.2 06/25/2019 Specimen Type: BLOOD No comment entered. [facility] CBC & DIFF ERYTHROCYTE DISTRIB UTION WIDTH [RATIO] BY AUTOMATED COUNT 17.8 % 11.8 - 15.1 06/25/2019 H Specimen Type: BLOOD No comment entered. [facility] CBC & DIFF LYMPHOCYTES/100 IVY KOCYTES IN BLOOD BY AUTOMATED COUNT 26.3 % 06/25/2019 Specimen Type: BLOOD No comment entered. [facility] CBC & DIFF NEUTROPHILS/100 IVY KOCYTES IN BLOOD BY AUTOMATED COUNT 61.2 % 06/25/2019 Specimen Type: BLOOD No comment entered. [facility] CBC & DIFF MONOCYTES/100 LEUKO CYTES IN BLOOD BY AUTOMATED COUNT 9.6 % 06/25/2019 Specimen Type: BLOOD No comment entered. [facility] CBC & DIFF MONOCYTES [#/VOLUME ] IN BLOOD BY AUTOMATED COUNT 0.8 K/cmm 0.19 - 0.80 06/25/2019 Specimen Type: BLOOD No comment entered. [facility] CBC & DIFF NEUTROPHILS [#/VOLU ME] IN BLOOD BY AUTOMATED COUNT 4.8 K/cmm 2.10 - 8.00 06/25/2019 Specimen Type: BLOOD No comment entered. [facility] CBC & DIFF EOSINOPHILS [#/VOLU ME] IN BLOOD BY AUTOMATED COUNT 0.1 K/cmm 0.00 - 0.60 06/25/2019 Specimen Type: BLOOD No comment entered. [facility] CBC & DIFF BASOPHILS [#/VOLUME ] IN BLOOD BY AUTOMATED COUNT 0.1 K/cmm 0.00 - 0.20 06/25/2019 Specimen Type: BLOOD No comment entered. [facility] CBC & DIFF EOSINOPHILS/100 IVY KOCYTES IN BLOOD BY AUTOMATED COUNT 1.7 % 06/25/2019 Specimen Type: BLOOD No comment entered. [facility] CBC & DIFF BASOPHILS/100 LEUKO CYTES IN BLOOD BY AUTOMATED COUNT 0.9 % 06/25/2019 Specimen Type: BLOOD No comment entered. [facility] CBC & DIFF LYMPHOCYTES [#/VOLU ME] IN BLOOD BY AUTOMATED COUNT 2.1 K/cmm 0.77 - 4.50 06/25/2019 Specimen Type: BLOOD No comment entered. [facility] CBC & DIFF IMMATURE GRANULOCYT ES [#/VOLUME] IN BLOOD BY AUTOMATED COUNT 0.02 K/cmm 0.00 - 0.05 06/25/2019 Specimen Type: BLOOD No comment entered. [facility] CBC & DIFF IMMATURE GRANULOCYT ES/100 LEUKOCYTES IN BLOOD BY AUTOMATED COUNT 0.3 % 06/25/2019 Specimen Type: BLOOD No comment entered. [facility] CA 19-9 CANCER AG 19-9 [UNITS/ VOLUME] IN SERUM OR PLASMA 7 U/mL 07/2019 Specimen T ype: SERUM Comment: CA 19-9 This test was performed using the Siemens chemiluminescent method. Values obtained from different assay methods cannot be used inter- changeably. CA 19-9 levels, regardless of value, should not be interpreted as absolute evidence of the presence or absence of disease. [facility] Vital Signs Combined list of inpatient and outpatient Vital Signs from all [facility] and/or [facility] medical facilities within the last 15 months. The included entries comply with the patient's data sharing authorizations. Vital Sign Value Date Comments Source PAIN 0 09/22 12:02:00 [facility] SYSTOLIC BLOOD PRESSURE 119mm[ Hg] 06/25/2019 14:14:02 [facility] DIASTOLIC BLOOD PRESSURE 80mm[ Hg] 06/25/2019 14:14:02 [facility] WEIGHT 223.8[lb_av] 06/25/2019 14:14:02 [facility] [place] [facility] BMI 31kg/m2 06/25/2019 14:14:02 [facility] PAIN 3 06/24 14:14:02 [facility] TEMPERATURE 98.6[degF] 06/25/2019 14:14:02 [facility] [facility] PULSE 86/min 06/25/2019 14:14:02 [facility] [place] [facility] RESPIRATION 18/min 06/25/2019 14:14:02 [facility] [facility] PAIN 4 04/03 10:21:00 [facility] [place] [facility] PAIN 0 03/10 12:47:00 [facility] SYSTOLIC BLOOD PRESSURE 125mm[ Hg] 12/18/2018 08:35:41 [facility] DIASTOLIC BLOOD PRESSURE 70mm[ Hg] 12/18/2018 08:35:41 [facility] Encounters Combined list of encounters at Department [facility] and[facility]or [facility] [facility] for the last 15 months. Not all [place] inpatient encounters are included. The incl uded entries comply with the patient's data sharing authorizations. Location Location Details Encounter Type Encounter Number Reason For Visit Attending Provider ADM Date DC Date Status Disposition Source Outpatient Encounter [id number] _MAPID:[id number] 05/16/2018 [facility] Outpatient Encounter [id number] ICD-10 -CM I25.10 [place] coronary artery w/o ang pctrs with Provider Comments: Coronary arteriosclerosis (SCT [id number]) KALA JONES [facility] [id number] ICD-10 -CM I25.10 [place] heart disease [place] coronary artery w/o ang pctrs with Provider Comments: Coronary arteriosclerosis (SCT [id number]) KALA JONES 05/16/2018 [place] [facility] OFFICE/OUT PATIENT VISIT EST [id number] ICD-10 -CM M54.31 Sciatica, right side with Provider Comments: Sciatica, right Side PAMELA RAMSEY 05/21/2018 [facility] Outpatient Encounter [id number] _MAPID:e [id number] 05/28/2018 [facility] 15 Outpatient Encounter [id number] ICD-10 -CM I25.10 [place]scl heart disease [place] coronary artery w/o ang pctrs with Provider Comments: Coronary arteriosclerosis (SCT [id number]) KALA JONES [facility]29/[facility] [id number] _MAPID:e [id number] 05/30/2018 [place] [address] Outpatient Encounter [id number] _MAPID:e [id number] 06/13/2018 [place] [address] Outpatient Encounter [id number] ICD-10 -CM Z71.3 Dietary counseling and surveillance with Provider Comments: Dietary counseling and surveillance JOE BOBO 06/24/2018 [facility] Outpatient Encounter [id number] _MAPID:[id number] 06/26/2018 [facility] OFFICE/OUT PATIENT VISIT EST [id number] ICD-10- CM 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 Comments: Pancreatic cyst (SCT [id number]) CHAPO BARRETO 06/26/2018 [facility] Outpatient Encounter [id number] _MAPID:e [id number] 06/26/2018 [facility] 15 Outpatient Encounter [id number] ICD-10 -CM G47.33 Obstructive sleep apnea (adult) (pediatric) with Provider Comments: Obstructive Sleep Apnea (Adult) (Pediatric) KARI DUPREE 06/28/2018 [facility] [id number] _MAPID:e [id number] 06/28/2018 [facility] 15 Outpatient Encounter [id number] ICD-10 -CM Z71.3 Dietary counseling and surveillance with Provider Comments: Dietary counseling and surveillance GARY HARRINGTON 07/08/2018 [facility]uan [facility] Outpatient Encounter [id number] ICD-10 -CM H90.3 Sensorineural hearing loss, bilateral with Provider Comments: Sensorineural hearing loss, bilateral (SCT [id number]) CHASTITY JEAN 07/09/2018 [facility] Outpatient Encounter [id number] _MAPID:[id number] 07/09/2018 [facility] Outpatient Encounter [id number] _MAPID:[id number] 07/10/2018 [facility] Outpatient Encounter [id number] _MAPID:[id number] 07/19/2018 [facility] Outpatient Encounter [id number] _MAPID:[id number] 07/19/2018 [facility] Outpatient Encounter [id number] _MAPID:e [id number] 07/23/2018 [facility]/OUT PATIENT VISIT EST [id number] ICD-10 -CM Z86.73 Prsnl hx of TIA (TIA), and cereb infrc w/o resid deficits with Provider Comments: Personal Hx of TIA/Cerebral Inf w/o Resid Deficits ZACHARY GRECO 07/23/2018 [facility] OFFICE/OUT PATIENT VIS[place] EST [id number] ICD-10 -CM M25.561 Pain in right knee with Provider Comments: Pain in right Knee PAMELA RAMSEY 07/24/2018 [facility] OFFICE/OUT PATIENT VISIT EST [id number] ICD-10 -CM K86.2 Cyst of pancreas with Provider Comments: Cyst of pancreas ALF GUEVARA 07/25/2018 [facility] Outpatient Encounter [id number] ICD-10 -CM R94.8 Abnormal results of function studies of organs and systems with Provider Comments: Abnormal Results of Function Studies of Organs/Systems SHANIQUA SCHMIDT 07/25/2018 [facility] Outpatient Encounter [id number] _MAPID:e [id number] [facility] [id number] ICD-10 -CM Z71.89 Other specified counseling with Provider Comments: Other specified counseling JAMILAH GONZALES 07/29/2018 [place] [facility] Outpatient Encounter [id number] _MAPID:e [id number] 07/31/2018 [facility] 15 Outpatient Encounter [id number] _MAPID:e [id number] 08/07/2018 [facility] 15 Outpatient Encounter [id number] ICD-10 -CM Z71.89 Other specified counseling with Provider Comments: Other specified counseling JESÚS MCKENZIE 08/07/2018 [facility] [id number] ICD-10 -CM 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 with Provider Comments: Malignant neoplasm of pancreatic duct JESÚS NYE 08/08/2018 [facility]u [facility] Outpatient Encounter [id number] ICD-10 -CM I25.10 [place] heart disease [place] coronary artery w/o ang pctrs with Provider Comments: Coronary arteriosclerosis (SCT [id number]) KALA JONES 08/08/2018 [facility] [facility] Outpatient Encounter [id number] ICD-10 -CM I25.10 Athscl heart disease of [place] coronary artery w/o ang pctrs with Provider Comments: Coronary arteriosclerosis (SCT [id number]) KALA JONES 08/08/2018 [place] [facility] Outpatient Encounter [id number] ICD-10 -CM I25.10 Athscl heart disease of [place] coronary artery w/o ang pctrs with Provider Comments: Coronary arteriosclerosis (SCT [id number]) KALA JONES 08/08/2018 [facility] Outpatient Encounter [id number] _MAPID:e [id number] 08/14/2018 [facility] 15 OFFICE[place] [id number] ICD-10 -CM 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 Comments: Pancreatic cyst (SCT [id number]) SANDRO MAYA 08/15/2018 [place] [facility] OFFICE/OUT PATIENT VISIT EST [id number] ICD-10 -CM Z71.89 Other specified counseling with Provider Comments: Other specified Counseling [place] AGUIRRE 08/15/2018 [facility] Outpatient Encounter [id number] _MAPID:e [id number] 08/15/2018 [facility] 15 Outpatient Encounter [id number] _MAPID:e [id number] 08/15/2018 [facility] 15 WI-EGD [id number] _MAPID :[id number] ALF GUEVARA 08/15/2018 [facility] Outpatient Encounter [id number] _MAPID:[id number] ALF GUEVARA 08/15/2018 [facility] Outpatient Encounter [id number] _MAPID:[id number] CAROLINA MCGREGOR 08/15/2018 [facility] OFFICE/OUT [place] [id number] ICD-10 -CM Z71.89 Other specified counseling with Provider Comments: Other specified Counseling CHANEL WOLF 08/15/2018 [facility] Outpatient Encounter [id number] _MAPID:[id number] CHANEL WOLF 08/15/2018 [place] [facility] OFFICE/OUT PATIENT [place]IS[place] EST [id number] ICD-10 -CM Z71.89 Other specified counseling with Provider Comments: Other specified Counseling NABIL CARRILLO 08/15/2018 [facility]u [facility] Outpatient Encounter [id number] _MAPID:[id number] 08/16/2018 [facility] Outpatient Encounter [id number] ICD-10 -CM K22.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, unspecified with Provider Comments: Castellanos's Esophagus with Dysplasia, unspecified CAROLINA MCGREGOR 08/16/2018 [place] [facility] Outpatient Encounter [id number] _MAPID:08/16/2018 [facility] Outpatient Encounter [id number] ICD-10 -CM Z71.3 Dietary counseling and surveillance with Provider Comments: Dietary counseling and surveillance GARY HARRINGTON 08[facility]20/2018 [facility] [id number] _MAPID:e [id number] 08/21/2018 [facility] 15 Outpatient Encounter [id number] ICD-10 -CM Z71.89 Other specified counseling with Provider Comments: Other specified counseling JOAN ORTEGA 08/23/2018 [place] [facility] Outpatient Encounter [id number] ICD-10 -CM Z71.89 Other specified counseling with Provider Comments: Other specified counseling ALYCIA WONG 08/27/2018 [facility] Outpatient Encounter [id number] _MAPID:[id number] 08/30/2018 [facility] Outpatient Encounter [id number] _MAPID:e [id number] 09/03/2018 [facility] 15 Outpatient Encounter [id number] _MAPID:e [id number] KALA JONES R 09/20/2018 [facility] Encounter [id number] ICD-10 -CM I25.10 Athscl heart disease of [place] coronary artery w/o ang pctrs with Provider Comments: Coronary arteriosclerosis (SCT [id number]) KALA JONES R 09/20/2018 [facility] Outpatient Encounter [id number] ICD-10 -CM I25.10 Athscl heart disease [place] coronary artery w/o ang pctrs with Provider Comments: Coronary arteriosclerosis (SCT [id number]) KALA JONES R 09/20/2018 [facility] Outpatient Encounter [id number] ICD-10 -CM I25.10 Athscl heart disease of [place] coronary artery w/o ang pctrs with Provider Comments: Atherosclerotic Heart Disease of [place] Coronary Artery without Angina Pectoris KARENKALA RESTREPO Yovany 09/20/2018 [facility] Outpatient Encounter [id number] _MAPID:e [id number] 09/20/2018 [facility] 15 Outpatient Encounter [id number] ICD-10 -CM Z86.73 Prsnl hx of TIA (TIA), and cereb infrc w/o resid deficits with Provider Comments: Personal History of Transient Ischemic Attack (Tia), and Cerebral Infarction without Residual Deficits TROY CASTELLANOS 09/27/2018 [facility] Outpatient Encounter [id number] ICD-10 -CM Z71.3 Dietary counseling and surveillance with Provider Comments: Dietary counseling and surveillance GARY HARRINGTON 09/30/2018 [facility] [place] [facility] OFFICE CON SULT[facility] [id number] ICD-10 -CM M54.5 Low back pain with Provider Comments: Low Back Pain ANAYELI KIRKPATRICK 10/01/2018 [facility] Outpatient Encounter [id number] ICD-10 -CM M54.5 Low back pain with Provider Comments: Low Back Pain JEFF HUFF 10/01/2018 [facility] [place] [facility] Outpatient Encounter [id number] _MAPID:e [id number] 10/02/2018 [facility] Encounter [id number] _MAPID:e uvWuuskn74 10/28/2018 [facility] Encounter [id number] ICD-10 -CM I25.10 Athscl heart disease of [place] coronary artery w/o ang pctrs with Provider Comments: Athscl Hrt Disease w/o Ang Pctrs ANDREW KOROMACamilo Crotes 11/11/2018 [facility] Outpatient Encounter [id number] _MAPID:e [id number] 11/16/2018 [facility] 15 Outpatient Encounter [id number] _MAPID:e [id number] 12/05/2018 [facility] 15 Outpatient Encounter [id number] ICD-10 -CM I25.10 Athscl heart disease of [place] coronary artery w/o ang pctrs with Provider Comments: Atherosclerotic Heart Disease of [place] Coronary Artery without Angina Pectoris KALA JONES 12/05/2018 [facility] Outpatient Encounter [id number] ICD-10 -CM I25.10 Athscl heart disease of [place] coronary artery w/o ang pctrs with Provider Comments: Atherosclerotic Heart Disease of [place] Coronary Artery without Angina Pectoris KALA JONES 12/05/2018 [facility] Outpatient Encounter [id number] ICD-10 -CM I25.10 Athscl heart disease of [place] coronary artery w/o ang pctrs with Provider Comments: Atherosclerotic Heart Disease of [place] Coronary Artery without Angina Pectoris KALA JONES 12/05/2018 [facility] [place] [facility] Outpatient Encounter [id number] ICD-10 -CM I25.10 Athscl heart disease of [place] coronary artery w/o ang pctrs with Provider Comments: Atherosclerotic Heart Disease of [place] Coronary Artery without Angina Pectoris KALA JONES Yovany 12/05/2018 [facility] Outpatient Encounter [id number] _MAPID:e [id number] 12/13/2018 [facility] 15 Outpatient Encounter [id number] _MAPID:e [id number] 12/17/2018 [place] [address] OFFICE/OUT PATIENT VISIT EST [id number] ICD-10 -CM K21.9 Gastro-esophageal reflux disease without esophagitis with Provider Comments: Gastro-esophageal reflux disease without esophagitis ([facility] [id number]) PAMELA RAMSEY 12/18/2018 [facility] Outpatient Encounter [id number] ICD-10 -CM Z71.3 Dietary counseling and surveillance with Provider Comments: Dietary counseling and surveillance GARY HARRINGTON 12/18/2018 [facility] Outpatient Encounter [id number] _MAPID:[id number] 12/19/2018 [facility] Outpatient Encounter [id number] _MAPID:[id number] 12/24/2018 [facility] Outpatient Encounter [id number] ICD-10 -CM R68.89 Other general symptoms and signs with Provider Comments: General Symptoms & Signs ANA CONKLIN 12/24/2018 [facility] Outpatient Encounter [id number] _MAPID:e [id number] 01/06/2019 [facility] 15 Outpatient Encounter [id number] _MAPID:nvzQoukts41 01/15/2019 [facility] Outpatient Encounter [id number] _MAPID:fwzQohcmu57 01/22/2019 [facility] OFFICE/OUT PATIENT VISIT EST [id number] ICD-10 -CM E11.9 Type 2 diabetes mellitus without complications with Provider Comments: Type 2 diabetes mellitus without complication (SNOMED CT 471464090) ANDREW ALEJO Nicol 01/31/2019 [facility] Outpatient Encounter [id number] ICD-10 -CM M51.36 Other intervertebral disc degeneration, lumbar region with Provider Comments: Other Intervertebral Disc Degeneration, Lumbar Region BRANDYNAGA CALHOUN Lloyd 03/10/2019 [facility] [place] [facility] OFFICE CON SULTATION [id number] ICD-10 -CM D48.5 Neoplasm of uncertain behavior of skin with Provider Comments: Neoplasm of uncertain behavior of skin of eyelid (SNOMED CT 28891474) KATHERINE MATT 03/10/2019 [facility] Outpatient Encounter [id number] ICD-10 -CM Z71.89 Other specified counseling with Provider Comments: Other specified Counseling NÉSTOR CHEN 03/19/2019 [facility] Outpatient Encounter [id number] ICD-10 -CM G47.33 Obstructive sleep apnea (adult) (pediatric) with Provider Comments: Obstructive sleep apnea (adult) (pediatric) KARI DUPREE 03/21/2019 [facility] Out[facility] Encounter [id number] _MAPID:e [id number] 03/21/2019 [facility] 15 Outpatient Encounter [id number] ICD-10 -CM G47.33 Obstructive sleep apnea (adult) (pediatric) with Provider Comments: Obstructive Sleep Apnea (Adult) (Pediatric) KARI DUPREE 03/21/2019 [facility] [place] [facility] OFFICE/OUT PATIENT VISIT EST [id number] ICD-10 -CM G47.33 Obstructive sleep apnea (adult) (pediatric) with Provider Comments: Obstructive sleep apnea syndrome (SNOMED CT 85507660) PHILIPPE DOUGLASS [facility] [id number] _MAPID:e [id number] 03/21/2019 [facility] 15 OFFICE/OUT PATIENT VISIT EST [id number] ICD-10 -CM G47.33 Obstructive sleep apnea (adult) (pediatric) with Provider Comments: Obstructive sleep apnea (adult) (pediatric) PHILIPPE DOUGLASS 03/21/2019 [place] [facility] Outpatient Encounter [id number] _MAPID:[id number] 03/21/2019 [facility] [place] [facility] Outpatient Encounter [id number] _MAPID:hgxAccstn81 03/24/2019 [facility] Outpatient Encounter [id number] _MAPID:e [id number] 03/26/2019 [place] [address] Outpatient Encounter [id number] ICD-10 -CM R73.09 Other abnormal glucose with Provider Comments: Abnormal Glucose SHANIQUA SCHMIDT 03/26/2019 [facility] Outpatient Encounter [id number] _MAPID:[id number] 03/31/2019 [facility] Outpatient Encounter [id number] ICD-10 -CM D48.5 Neoplasm of uncertain behavior of skin with Provider Comments: Neoplasm of uncertain behavior of skin of eyelid ([facility] [id number]) KATHERINE MATT 04/03/2019 [facility] Outpatient Encounter [id number] _MAPID:e [id number] 04/03/2019 [place] [address] Outpatient Encounter [id number] ICD-10 -CM D23.112 Other benign neoplasm skin/ right lower eyelid, inc canthus with Provider Comments: Other benign neoplasm of skin of right lower eyelid, including canthus KATHERINE MATT 04/14/2019 [facility] Outpatient Encounter [id number] ICD-10 -CM Z71.3 Dietary counseling and surveillance with Provider Comments: Dietary counseling and surveillance GARY HARRINGTON 04/28/2019 [place] [facility] Outpatient Encounter [id number] _MAPID:e [id number] 06/17/2019 [facility] 15 OFFICE/OUT PATIENT VISIT EST [id number] ICD-10 -CM 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 Comments: Pancreatic cyst (SCT [id number]) CHAPO BARRETO Luda 06/25/2019 [facility] Outpatient Encounter [id number] _MAPID :endReason9 08/07/2019 [facility] Outpatient Encounter [id number] ICD-10 -CM 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 Comments: Pancreatic cyst (SCT [id number]) ALF GUEVARA 08/07/2019 [facility] Outpatient Encounter [id number] _MAPID:e ndReason8 08/07/2019 [facility] 15 Outpatient Encounter [id number] _MAPID :endReason7 09/22/2019 [facility] Outpatient Encounter [id number] _MAPID :endReason6 ADRIEL HERNANDEZ 09/22/2019 [facility] OFFICE/OUT PAT[place] EST [id number] ICD-10 -CM B35.1 Tinea unguium with Provider Comments: Tinea Unguium ADRIEL HERNANDEZ 09/23/2019 [facility] Outpatient Encounter [id number] _MAPID :endReason4 10/07/2019 [facility] Outpatient Encounter [id number] _MAPID :endReason3 10/07/2019 [facility] Outpatient Encounter [id number] _MAPID :endReason2 10/08/2019 [facility] Outpatient Encounter [id number] _MAPID:e ndReason1 10/23/2019 [facility] 15 Procedures No Data Provided for This Section Social History Combined list of available smoking, tobacco, and other social history on record at Department of Defense and/or Veterans Affairs facilities. The included entrie s comply with the patient's data sharing authorizations. Social History Type Response Date Comment Source Tobacco smoking status NHIS VA-TOBACCO QUIT 15 YRS OR MORE 06/26/2018 [facility] History of tobacco use VA-TO BACCO FORMER USER 06/26/2018 [facility] History of tobacco use TOBAC CO USER OFFERED MEDS 11/23/2017 [facility] History of tobacco use CURRE NT TOBACCO USER 11/23/2017 [facility] History of tobacco use TOBAC CO CESSATION REFERRAL DECLINED 11/23/2017 [facility] History of tobacco use CURRE NT TOBACCO USER (READY TO QUIT) 11/23/2017 [facility] History of tobacco use NON-T OBACCO USER 06/27/2017 [facility] History of tobacco use NON-T OBACCO USER 06/27/2017 [facility] History of tobacco use NON-T OBACCO USER 12/18/2016 [facility] History of tobacco use NON-T OBACCO USER 01/06/2015 [facility] History of tobacco use NON-T OBACCO USER 11/23/2014 [facility] History of tobacco use NON-T OBACCO USER 10/26/2014 [facility] History of tobacco use NON-T OBACCO USER 10/14/2014 [facility] History of tobacco use NON-T OBACCO USER 12/01/2005 [facility] History of tobacco use CURRE NT NON-SMOKER 12/01/2005 [facility] History of tobacco use LIFET BRANDI NON-SMOKER 12/01/2005 [facility] History of tobacco use LIFET BRANDI NON-TOBACCO USER 12/01/2005 [facility] History of tobacco use NON-S MOKER 12/01/2005 [facility] Assessment and Plan No Data Provided for This Section Plan of Care Date/Time Care Activity Care Activity Detail Facility 04/07/2020 AMBULATORY - NONE AMBULATORY - NONE [facility] 03/31/2020 AMBULATORY - MEDICI NE AMBULATORY - MEDICINE [facility] 03/31/2020 AMBULATORY - MEDICI NE AMBULATORY - MEDICINE [facility] 03/31/2020 AMBULATORY - MEDICI NE AMBULATORY - MEDICINE [facility] 03/31/2020 AMBULATORY - MEDICI NE AMBULATORY - MEDICINE [facility] 01/27/2020 AMBULATORY - MEDICI NE [facility] AMBULATORY - MEDICI NE AMBULATORY - MEDICINE [facility] 12/31/2019 AMBULATORY - MEDICI NE AMBULATORY - MEDICINE [facility] 12/31/2019 AMBULATORY - NONE [facility] Family History No Data Provided for This Section Advance Directives No Data Provided for This Section Functional Status No Data Provided for This Section
--- OUTSIDE RECORDS SUMMARY | 2019-11-11 02:16 | XMS REPORT | Encounter Summary ---
Author Author Department of [facility] rsHERBERTH Organization Department of [facility] Address [address] [place] [address] Phone Unavailable Care Team Providers Care Com Writer Name Role Phone ADRIEL HERNANDEZ PCP Unavailable Insurance Providers: All historical and current No Data Provided for This Section Selected Encounter This section includes the information on record at [place] for the Encounter. Date/Time Encounter Type Encounter Description Reason Provider Source Jan 15, 2019 11:31 AM Outpatient Encounter ADMIN PAT ACTIVTIES (NOELLE NCT) ARTUR BLAS [facility] IHE Encounter Template Text not used by [place] Assessments - Encounter Diagnoses No Data Provided for This Section Plan of Treatment: Future Appointments (+ 6 months) and Future Tests (+/- 45 day s) The Plan of Treatment section includes future care activities for the patient fr om all [place] treatment facilities. This section includes future appointments and fu ture orders which are active, pending or scheduled. Future Appointments This section includes appointments that were scheduled t o occur 6 months from the date of the Encounter, up to a maximum of 20 appointme nts. The data comes from all [place] treatment facilities. Appointment Date/Time Appointment Type Appointment Facili ty Name Jan 31, 2019 09:00 AM AMBULATORY - MEDICINE [facility] Mar 10, 2019 12:30 PM AMBULATORY - SURGERY [facility] Mar 21, 2019 09:15 AM AMBULATORY - NONE [facility] Mar 21, 2019 09:30 AM AMBULATORY - MEDICINE [facility] Mar 21, 2019 09:31 AM AMBULATORY - MEDICINE ARTUR BLAS [facility] Mar 21, 2019 10:00 AM AMBULATORY - MEDICINE [facility] Mar 21, 2019 10:01 AM AMBULATORY - MEDICINE ARTUR LBAS [facility] Mar 26, 2019 10:00 AM AMBULATORY - NONE ARTUR BLAS [facility] Apr 03, 2019 10:00 AM AMBULATORY - SURGERY ARTUR BLAS [facility] Apr 14, 2019 10:00 AM AMBULATORY - SURGERY [facility] Apr 28, 2019 11:00 AM AMBULATORY - NONE ARTUR BLAS [facility] Jun 25, 2019 11:30 AM AMBULATORY - NONE ARTUR BLAS [facility] Jun 25, 2019 01:15 PM AMBULATORY - MEDICINE ARTUR BLAS [facility] Surgical Procedures: All associated to the encounter No Data Provided for This Section Lab Results: +/- 30 days of the encounter This section includes the Chemistry and Hematology Lab R esults on record with [place] for the patient. Radiology Reports and Pathology Report s are provided separately, in subsequent sections. Lab Results This section contains the Chemistry/Hematology Results usha t were resulted 30 days before or 30 days after the date of the Encounter. Date/Time Source Result Type Result - Unit Interpretation Reference Range Comment Dec 18, 2018 08:45 AM [facility] CBC & DIFF Specimen Type: BLOOD No comment entered. WBC 11.9 K/cmm H 3.60-11.20 RBC 4.94 M/ul 4.1-5.7 HGB 14.7 g/dl 13.1-16.8 HCT 44.8 % 38.2-48.4 MCV 90.7 fl 80.1-98.5 MCH 29.8 pg 27.0-34.0 MCHC 32.8 g/dl L 33.0-36.0 PLATELET COUNT 261 K/cmm 150-400 MPV 10.9 fl 7.5-11.2 RDW 14.6 % 11.8-15.1 LYMPHOCYTES, AUTO% 21.2 % NEUTROPHILS, AUTO % 64.2 % MONOCYTES, AUTO% 9.3 % MONOCYTES, ABSOLUTE 1.1 K/cmm H 0.19-0.80 NEUTROPHILS, ABSOLUTE 7.6 K/cmm 2.10-8.0 0 EOSINOPHILS, ABSOLUTE 0.5 K/cmm 0.00-0.6 0 BASOPHILS, ABSOLUTE 0.1 K/cmm 0.00-0.20 EOSINOPHILS, AUTO% 3.9 % BASOPHILS, AUTO% 1.0 % LYMPHOCYTES, ABSOLUTE 2.5 K/cmm 0.77-4.5 0 IMMATURE GRANS, ABSOLUTE 0.05 K/cmm 0.00 -0.05 IMMATURE GRANS, AUTO % 0.4 % Dec 18, 2018 08:45 AM [facility] COMPREHENSIVE METABOLIC PA KELLE Specimen Type: PLASMA Comment: For eGFR: eGFR results >60 are imprecise. Many variables affect the calculated result. Interpretation of eGFR results >60 must be monitored over time. *CREATININE 1.01 mg/dL 0.7-1.3 UREA NITROGEN mg/dL 13 mg/dL 9-25 GLUCOSE 116 mg/dL H 72-99 SODIUM 140 mEq/L 136-145 POTASSIUM 4.3 mEq/L 3.5-5.0 CALCIUM (mg/dL) 9.2 mg/dL 8.4-10.4 PROTEIN,TOTAL 7.3 g/dL 6.0-8.6 ALBUMIN 4.1 g/dl 3.4-5.0 TOTAL BILIRUBIN 0.4 mg/dL 0.2-1.2 ASPARTATE TRANSAMINASE 20 U/L 5-34 ALANINE AMINOTRANSFERASE 18 U/L 8-40 ANION GAP 7.1 L 8-16 CHLORIDE 106 mEq/L 98-107 CO2 26.9 mEq/L 22-31 ALKALINE PHOSPHATASE 139 U/L 40-150 EGFR >60 Dec 18, 2018 08:45 AM [employer] LIPID PROFILE(HDL,TRIG,CHO L,LDL) Specimen Type: PLASMA Comment: For eGFR: eGFR results >60 are imprecise. Many variables affect the calculated result. Interpretation of eGFR results >60 must be monitored over time. CHOLESTEROL 172 mg/dL 0-200 TRIGS 190 mg/dL H 0-150 HDL-CHOLESTEROL 40 mg/dL >40 LDL (CALC) 94 mg/dL 0-99.9 Dec 18, 2018 08:45 AM [employer] PROSTATIC SPECIFIC ANTIGEN (TOTAL) Specimen Type: SERUM No comment entered. PROSTATIC SPECIFIC ANTIGEN(TOTAL) 1.3 ng/mL 0-4 Dec 18, 2018 08:45 AM [facility] HEMOGLOBIN A1C Specimen Type: BLOOD No comment entered. HEMOGLOBIN A1C 6.7 % H 4.0-6.0 Dec 18, 2018 08:45 AM [facility] URIC ACID (mg/dL) Specimen Type: PLASMA Comment: For eGFR: eGFR results >60 are imprecise. Many variables affect the calculated result. Interpretation of eGFR results >60 must be monitored over time. URIC ACID (mg/dL) 5.8 mg/dL 3.5-7.2 Dec 18, 2018 08:45 AM [facility] URINALYSIS Specimen Type: URINE No comment entered. URINE COLOR Yellow SPECIFIC GRAVITY 1.013 1.005-1.030 UROBILINOGEN Negative mg/dL 0.1-1.0 URINE BILIRUBIN Negative Negative URINE KETONES Negative mg/dl Negative URINE GLUCOSE Negative mg/dL Negative URINE PROTEIN Negative mg/dl Negative-Tr zainab URINE PH 5.0 5-8 APPEARANCE,URINE Clear Clear URINE BLOOD Negative Negative URINE NITRITE Negative Negative LEUKOCYTE ESTERASE Negative Negative Dec 18, 2018 08:45 AM [facility] MICROALBUMIN (ANANT,WI) RANDO M URINE Specimen Type: URINE Comment: Microalbumin is below the linearity of the instrument, unable to calculate the albumin/creatinine ratio. *MICROALBUMIN,RAND < 5 ug/mL *MICROALB/CREAT canc mcg/mg cr *PROT/TOE POUNDER RATIO 0.1 *UR PROTEIN 8 mg/dL *UR CREATININE 99.8 mg/dL Not Available Vital Signs: All taken on the encounter date No Data Provided for This Section Immunizations: All administered on the encounter date No Data Provided for This Section Social History: Smoking Status (Most current) and Tobacco Use (All prior to enco unter date) This section includes the most current, and the historical, smoking and tobacco- related health factors from the [place] facility where the Encounter took place. Current Smoking Status This section includes the most current smoking, or tobacco -related health factor, from the [place] facility where the Encounter took place. Date/Time Current Smoking Status Comment [facility] Jun 26, 2018 02:13 PM VA-TOBACCO QUIT 15 YRS OR MORE PORSHA BLAS [facility] Tobacco Use History This section includes a history of the smoking, or tobacco -related health factors, that were collected on or before the date of the Encoun ter. The data comes from the [place] facility where the Encounter took place. Date/Time Smoking Status/Tobacco Use Comment [facility] Jun 26, 2018 02:13 PM VA-TOBACCO QUIT 15 YRS OR MORE [facility]SHAKAYE [facility] Jun 27, 2017 01:39 PM NON-TOBACCO USER [facility]UR [facility] Jun 27, 2017 01:16 PM NON-TOBACCO USER [facility] Jan 06, 2015 02:07 PM NON-TOBACCO USER [facility] Nov 23, 2014 10:38 AM NON-TOBACCO USER [facility] Oct 26, 2014 10:36 AM NON-TOBACCO USER [facility] Oct 14, 2014 11:09 AM NON-TOBACCO USER ARTUR BLAS [facility] Advance Directives: All historical and current No Data Provided for This Section Allergies and Adverse Reactions (ADRs): All historical and current Section Date Range: From patient's date of to the date document was create d. This section includes Allergies and Adverse Reactions (ADR s) on record with [place] for the [place]. The data comes from a ll [place] treatment facilities. It does not list Allergies/ADRs that were removed or entered in error. Some allergies/ADRs may be reported in t Immunization section. Allergen Event Date Event Type Reaction(s) Severity Source [place] September 08, 2014 Propensity to adverse reactions to drug (diso rder) [facility] 15 [place] September 08, 2014 Propensity to adverse reactions to drug (diso rder) [facility] 15 Medications: VA dispensed (-15 months) and Non-VA Documented (Obtained Outside V A) Section Date Range: 1) prescriptions processed by a VA pharmacy in the last 15 m [facility], and 2) all medications recorded in the [place] medical record as "non-VA medic ations". Pharmacy terms refer to VA pharmacy's work on prescriptions. [place] patient s are advised to take their medications as instructed by their health care team. The data comes from all [place] treatment facilities. Glossary of Pharmacy Terms:Active = A prescription that can be filled at the local [place] pharmacy.Active: On Hold = An active prescription that will not be filled until pharmacy resolves the issue.Active: Susp = An active prescription that is not scheduled to be filled yet.Clinic Order = A medication received during a visit to a [place] clinic or emergency department (currently not available).Discontinued [...] may be a prescription from either the [place] or other providers that was filled outside the [place]. Or, it may be an over the [...] TEST BLOOD GLUCOSE 50 Dec 19, 2019 [id number] September 04, 2019 PAMELA RAMSEY ACCU-CHEK CHARLES PLUS (GLUCOSE) TEST STRIP Discontinued USE 1 STRIP FOR TESTING TWO TIMES PER WEEK - DIRECTED TO TEST BLOOD GLUCOSE 50 Jul 25, 2019 [id number] Nov 12, 2018 PAMELA RAMSEY CBGUILLERMO ALBUTEROL SO4 90MCG/ACTUAT (CFC-F) INHL,ORAL,6.7GM Active INHALE 2 PUFFS BY ORAL INHALATION EVERY 4 HOURS NEEDED FOR BREATHING. SHAKE WELL. RINSE MOUTHPIECE FREQUENTLY TO PREVENT CLOGGING. USE NEEDED FOR SHORTNESS OF AIR/WHEEZING FOR BREATHING. SHAKE WELL. RINSE MOUTHPIECE FREQUENTLY TO PREVENT CLOGGING. USE NEEDED FOR SHORTNESS OF AIR/WHEEZING 1 Dec 19, 2019 [id number] September 04, 2019 PAMELA RAMSEY CBGUILLERMO ALCOHOL PREP PAD Active USE 1 PAD ON SKIN BIW TO CLEAN AND DISINFECT THE SKIN 200 Sep 29, 2020 [id number] Sep 30, 2019 MAURICIO RANKIN CBGUILLERMO ALCOHOL PREP PAD Discontinued USE 1 PAD ON SKIN BI W TO CLEAN AND DISINFECT THE SKIN 200 Dec 19, 2019 [id number] Jun 06, 2019 PAMELA RAMSEY ALCOHOL PREP PAD Discontinued USE 1 PAD ON SKIN BI W TO CLEAN AND DISINFECT THE SKIN 200 Jul 25, 2019 [id number] Nov 12, 2018 PAMELA RAMSEY CBGUILLERMO ASPIRIN 25MG/DIPYRIDAMOLE 200MG CAP,SA Active T CHAPIN 1 CAPSULE BY MOUTH TWO TIMES A DAY - SWALLOW WHOLE. DO NOT CRUSH OR CHEW. FOR RECURRENT TIA/STROKE 180 Dec 19, 2019 [id number] Dec 20, 2018 PAMELA RAMSEY ASPIRIN 25MG/DIPYRIDAMOLE 200MG CAP,SA Discontinued T CHAPIN 1 CAPSULE BY MOUTH TWO TIMES A DAY - SWALLOW WHOLE. DO NOT CRUSH OR CHEW. FOR RECURRENT TIA/STROKE 180 Feb 06, 2019 [id number] Sep 28, 2018 ZACHARY GRECO [facility] ASPIRIN 81MG TAB,EC Non- [place] TAKE ONE TABLET BY MOUTH ONCE A DAY Non-VA Documented by: PADMA LONG nted at: [facility]ESS ATORVASTATIN CA 80MG TAB Active TAKE ONE TABLET BY MOUTH AT BEDTIME FOR CHOLESTEROL - REPORT ANY UNEXPLAINED MUSCLE PAIN/WEAKNESS TO YOUR PROVIDER 90 Dec 19, 2019 [id number] September 04, 2019 PAMELA RAMSEY ATORVASTATIN CA 80MG TAB Discontinued TAKE ONE TABLET BY MOUTH AT BEDTIME FOR CHOLESTEROL - REPORT ANY UNEXPLAINED MUSCLE PAIN/WEAKNESS TO YOUR PROVIDER 90 Dec 20, 2018 [id number] Nov 12, 2018 PAMELA RAMSEY BUDESONIDE 160MCG/FORMOTEROL FUM 4.5MCG/SPRAY INHL,ORAL,10.2 GM Active INHALE 2 PUFFS BY MOUTH TWO TIMES A DAY FOR BREATHING. SHAKE WELL. RINSE MOUTH AND SPIT AFTER EACH USE. 3 Apr 24, 2020 [id number] August 22, 2019 LISSA OATES [facility] CALCIUM/VITAMIN D TAB No n-VA TAKE BY MOUTH ONCE A DAY Non-V A Documented by: PADMA LONG nted at: [facility] NESS CARBOXYMETHYLCELLULOSE NA 0.5% SOLN,OPH Active INSTILL ONE DROP IN BOTH EYES FOUR TIMES A DAY FOR DRY EYES Feb 01, 2020 [id number] September 03 0 NEDA SHAW [facility] DICLOFENAC NA 1% GEL,TOP Discontinued APPLY 2 GRAMS A FFECTED AREA TWO TIMES A DAY NEEDED FOR PAIN AND INFLAMMATION. DO NOT EXCEED 16GM DAILY TO ANY AFFECTED JOINT OF LOWER EXTREMITIES. DO NOT EXCEED 8GM DAILY TO ANY AFFECTED JOINT OF UPPER EXTREMITES. DO NOT EXCEED TOTAL DOSE OF 32GM DAILY FOR ALL JOINTS. 100 Oct 31, 2018 [id number] Oct 06, 2018 ANAYELI KIRKPATRICK [facility] DICLOFENAC NA 1% GEL,TOP APPLY 2 GRAMS A FFECTED AREA TWO TIMES A DAY NEEDED FOR PAIN AND INFLAMMATION. DO NOT EXCEED 16GM DAILY TO ANY AFFECTED JOINT OF LOWER EXTREMITIES. DO NOT EXCEED 8GM DAILY TO ANY AFFECTED JOINT OF UPPER EXTREMITES. DO NOT EXCEED TOTAL DOSE OF 32GM DAILY FOR ALL JOINTS. 100 Jan 17, 2019 [id number] Dec 20, 2018 PAMELA RAMSEY FLUTICASONE PROPIONATE 50MCG/SPRAY SOLN,NASAL,16GM Active INSTILL 1 SPRAY IN EACH NOSTRIL ONCE A DAY SHAKE GENTLY BEFORE USE! - MUST BE USED DIRECTED FOR 3 WEEKS TO PROVIDE BENEFIT. * NO EARLY REFILLS * 1UNIT = 30DAYS AT 4 PF/DAY OR 60DAYS AT 2PF/DAY 2 Dec 19, 2019 [id number] August 26, 2019 PAMELA RAMSEY KETOTIFEN 0.025% SOLN,OPH Active INSTILL 1 DROP IN BOTH EYES TWO TIMES A DAY FOR RELIEF OF ALLERGY SYMPTOMS IN EYE(S) Feb 01, 2020 [id number] September 04, 2019 NEDA SHAW [facility] LANCET,SOFTCLIX Active USE LANCET BIW FOR TESTING BL OOD GLUCOSE DIRECTED Sep 29, 2020 [id number] Sep 30, 2019 [facility] LANCET,SOFTCLIX Discontinued USE LANCET BIW FO R TESTING BLOOD GLUCOSE DIRECTED Dec 19, 2019 [id number] Jun 06, 2019 PAMELA RAMSEY LANCET,SOFTCLIX Discontinued USE LANCET BIW FO R TESTING BLOOD GLUCOSE DIRECTED Jul 25, 2019 [id number] Nov 12, 2018 PAMELA RAMSEY LISINOPRIL 40MG TAB Non- [place] TAKE ONE-HALF TABLET BY MOUTH EVERY MORNING Non-VA Documented by: PAMELA RAMSEY nted at: [facility] LORATADINE/PSEUDOEPHEDRINE TAB,SA Non-VA TAKE BY MOUTH No n-VA Documented by: JUAN LANG nted at: [facility] MAGNESIUM OXIDE 250MG TAB Non-VA TAKE 125 TABLETS BY MOUTH ONCE A DAY Non-VA Documented by: PADMA LONG Docume nted at: [facility] NESS MONTELUKAST NA 10MG TAB Non-VA TAKE ONE TABLET BY MOUTH EVERY EVENING Non-VA Documented by: PAMELA RAMSEY Docume nted at: [facility] OMEPRAZOLE 20MG CAP,EC Active TAKE 2 CAPSULES B Y MOUTH BEFORE BREAKFAST 30 MINUTES BEFORE EATING TO LOWER STOMACH ACID (REPLACES ACIPHEX) 180 Dec 19, 2019 [id number] August 26, 2019 PAMELA RAMSEY POTASSIUM GLUCONATE TAB Non-VA TAKE 595MG BY MOUTH ONCE A DAY N on-VA Documented by: PADMA LONG Docume nted at: [facility] NESS PRASUGREL HCL 10MG TAB N on-VA TAKE ONE TABLET BY MOUTH ONCE A DAY Non-VA Documented by: KATHERINE MATT Docume nted at: [facility] PREGABALIN 150MG CAP,ORAL Non-VA TAKE 1 CAPSULE BY MOUTH TWO TIMES A DAY Non-VA Docume nted by: PAMELA RAMSEY Doccarlos nted at: [facility] NESS PREGABALIN 150MG CAP,ORAL Non-VA TAKE 1 CAPSULE BY MOUTH TWO TIMES A DAY Non-VA Docume nted by: PAMELA RAMSEY Doccarlos nted at: [facility] NESS SEMAGLUTIDE INJ,SOLN Non -VA INJECT SUBCUTANEOUSLY EVERY WEEK Non-VA Documented by: ANAYELI KIRKPATRICK Docume nted at: [facility] TERBINAFINE HCL 1% CREAM,TOP Active APPLY LIGHT LY TO AFFECTED AREA TWO TIMES A DAY FOR INFECTION Sep 23, 2020 [id number] Sep 24, 2019 ADRIEL HERNANDEZ UREA 20% CREAM,TOP Active APPLY LIGHTLY (20%) TO AFFECTED AREA TWO TIMES A DAY NEEDED TO PROMOTE HEALING,RUB IN UNTIL COMPLETELY ABSORBED*FOR TOPICAL USE ONLY* APPLY TO BOTH FEET DIRECTED. Sep 25, 2020 [id number] Sep 26, 2019 ADRIEL HERNANDEZ Problems (Conditions): All historical and current Section Date Range: From patient's date of to the date document was create d. This section includes a list of Problems (Conditions) know n to [place] for the [place]. It includes both active and inacti ve problems (conditions). The data comes from all [place] treatment facilities. Problem Status Problem Code Date of Onset Date of Resolution Comm ent(s) Provider Source Alcohol intake above recommended sensible limits Active 275187098 PADMA LONG [facility] Allergic conjunctivitis Active 221777872 NEDA SHAW [facility] Bilateral senile combined form cataracts of eyes Active 36320413584 9108 COLINNEDA [facility] Bilateral tinnitus Active [id number] CHASTITY JEAN Nicol [facility] Coronary arteriosclerosis Active 02694533 September 08, 2014 Entered By: PADMA LONG Comment: hx of ptca to RCA several yrs. agoSeptember 08, 2014 Entered By: PADMA LONG Comment: heart cath 09/01/14, neg. / previous stent to RCA,, via abida meneses ks HATCHER, JENNEY R [facility] Diabetes mellitus Active 02430938 PAMELA RAMSEY [facility] Disorder of pancreas Active 4703774 September 08, 2014 Entered By: PADMA LONG Comment: 2.5cm low density lseion in bodyMay 2014 Entered By: PADMA LONG Comment: question of communication with pancreatic ductMay 2014 Entered By: PADMA LONG Comment: favored to be cystic pancreatic cancerMay 2014 Entered By: PADMA LONG Comment: per abdominal CT 09/01/14, via abida meneses,PADMA Pradhan [facility] Dry eyes Active 861357549 BEL[facility]EDA [facility] Gastro-esophageal reflux disease without esophagitis ( SNOMED CT 573349776) Active 780455350 ALF GUEVARA [facility] Hyperlipidemia (SNOMED CT 98111012) Active 63954028 PAMELA RAMSEY [facility] Lung mass Active 169471282 September 08, 2014 E ntered By: PADMA LONG Comment: 4.5 cm mass, post. segment right upper lobe.September 08, 2014 Entered By: PADMA LONG Comment: mild adenopathy in mediastinum and bilat. hilaMay 2014 Entered By: PADMA LONG Comment: most likely related to lung cancerMay 2014 Entered By: PADMA LONG Comment: per ct angio of chest with contrast 09/01/14,via abida meneses ksJun 2014 Entered By: PADMA LONG Comment: per path report- mod. differentiated bronchogenic adenoca. 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 Active 09655137 KATHERINE MATT [facility] Obesity Active 534960841 [facility] Obstructive sleep apnea syndrome (SNOMED CT 64595456) Active 742176 015 PHILIPPE DOUGLASS [facility] Pancreatic cyst Active 67297429 JAYLENE GUEVARA [facility] Papilloma of right eyelid Active [id number] NEDA SHAW [facility] Polyp of colon Active 00549748 Jan 23 Entered By: PADMA LONG Comment: c-scope 01/17/16, multiple benign colonic polypsJun 28, 2017 Entered By: PADMA LONG Comment: c-scope,06/25/17,[facility], three benign polyps- sigmoid colon, transverse colon,cecum. see path report cprs SHARRON TORRES [facility] Pulmonary emphysema Active 09936929 0 BRIANA GAVIN [facility] Sensorineural hearing loss, bilateral Active 804315447 CHASTITY JEAN [facility] Snoring Active 31774898 SONG BULLOCK [facility] Type 2 diabetes mellitus without complication Active 338788528 NEDA SHAW [facility] Environmental Allergies (ICD-9-CM 477.9) Inactive 477.9 Dec 18, 2017 PADMA LONG [facility] External hemorrhoids without mention of complication (ICD-9- CM 455.3) Inactive 455.3 Dec 18, 2017 PADMA LONG [facility] Impotence of organic origin (ICD-9-CM 607.84) Inactive 607.84 Dec 18, 2017 PADMA LONG [facility] Screening for Lipoid disorders (ICD-9-CM V77.91) Inactive V77.91 Jan 18, 2007 PADMA LONG [facility] Stye * (ICD-9-CM 373.11) Inactive 373.11 Dec 18, 201 8 Jan 18, 2007 Entered By: PADMA LONG Comment: bilat lower lids, chronic/recurrent PADMA LONG [facility] Tobacco Use Disorder, Continuous Inactive 305.1 Dec 18, 2017 Jan 18, 2007 Entered By: PADMA LONG Comment: one ppd PADMA LONG [facility] Radiology Reports: +/- 30 days of the encounter No Data Provided for This Section Pathology Reports: +/- 30 days of the encounter No Data Provided for This Section Encounter Notes: All associated encounter notes This section contains the clinical notes associated to the Encounter. Date/Time Encounter Note(s) Provider Source Jan 15, 2019 11:31 AM ADMINISTRATIVE NOTE: LOCAL TITLE: [place]-ADMINISTRATIVE NOTE (BP,O) STANDARD TITLE: ADMINISTRATIVE NOTE DATE OF NOTE: JAN 15, 2019@11:31 ENTRY DATE: JAN 15, 2019@11:31:19 AUTHOR: [place] [facility] EXP COSIGNER: URGENCY: STATUS: COMPLETED Patient left message that he spoke to nurse couples weeks ago asking about a back traction device for his back pain. Asked if can get through [place]. He can be reached at: [phone] /es/ [place] [facility] RN BSN Signed: 01/15/2019 11:32 Receipt Acknowledged By: * AWAITING SIGNATURE * ANA CONKLIN JESSICA L ROBERT J. DOLE [facility]
--- OUTSIDE RECORDS SUMMARY | 2019-11-11 02:16 | XMS REPORT | Encounter Summary ---
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 Date/Time Encounter Type Encounter Description Reason Provider Source Mar 21, 2019 10:00 AM Outpatient Encounter SLEEP MEDICINE [facility] 15 IHE Encounter Template Text not used by [place] Assessments - Encounter Diagnoses No Data Provided for This Section Plan of Treatment: Future Appointments (+ 6 months) and Future Tests (+/- 45 day s) The Plan of Treatment section includes future care activities for the patient fr om all [place] treatment facilities. This section includes future appointments and fu ture orders which are active, pending or scheduled. Future Appointments This section includes appointments that were scheduled t o occur 6 months from the date of the Encounter, up to a maximum of 20 appointme nts. The data comes from all [place] treatment facilities. Appointment Date/Time Appointment Type Appointment Facili ty Name Mar 26, 2019 10:00 AM AMBULATORY - NONE [facility] Apr 03, 2019 10:00 AM AMBULATORY - SURGERY [facility] Apr 14, 2019 10:00 AM AMBULATORY - SURGERY [facility] Apr 28, 2019 11:00 AM AMBULATORY - NONE [facility] Jun 25, 2019 11:30 AM AMBULATORY - NONE [facility] Jun 25, 2019 01:15 PM AMBULATORY - MEDICINE [facility] Jul 23, 2019 11:00 AM AMBULATORY - NONE [facility] Jul 25, 2019 08:00 AM AMBULATORY - NONE [facility] Aug 07, 2019 10:30 AM AMBULATORY - MEDICINE [facility] Active, Pending, and Scheduled Orders This section [...] the Encounter. The data comes from all [place] treatment facilities. 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 Radiology Reports and Pathology Report s are provided separately, in subsequent sections. Lab Results This section contains the Chemistry/Hematology Results usha t were resulted 30 days before or 30 days after the date of the Encounter. Date/Time Source Result Type Result - Unit Interpretation Reference Range Comment Mar 21, 2019 08:55 AM [facility] HEMOGLOBIN A1C Specimen Type: BLOOD No comment [...] Adverse Reactions (ADR s) on record with [place] for the patient. The data comes from a ll [place] treatment facilities. It does not list Allergies/ADRs that were removed or entered in error. Some allergies/ADRs may be reported in t he Immunization section. Allergen Event Date Event Type Reaction(s) Severity Source [place] September 08, 2014 Propensity to adverse reactions to drug (diso rder) [facility] 15 PLAVIX September 08, 2014 Propensity to adverse reactions to drug (diso rder) [facility] Medications: VA dispensed (-15 months) and Non-VA Documented (Obtained Outside V A) Section Date Range: 1) prescriptions processed by a VA pharmacy in the last 15 m [facility], and 2) all medications recorded in the [place] medical record as "non-VA medic ations". Pharmacy terms refer to [place] pharmacy's work on prescriptions. [place] patient s are advised to take their medications as instructed by their health care team. The data comes from all [place] treatment facilities. Glossary of Pharmacy Terms:Active = A prescription that can be filled at the local [place] pharmacy.Active: On Hold = An active prescription that will not be filled until pharmacy resolves the issue.Active: Susp = An active prescription that is not scheduled to be filled yet.Clinic Order = A medication received during a visit to a [place] clinic or emergency department (currently not available).Discontinued [...] TEST BLOOD GLUCOSE 50 Dec 19, 2019 [id number] September 04, 2019 [facility] ACCU-CHEK CHARLES PLUS (GLUCOSE) TEST STRIP Discontinued USE 1 STRIP FOR TESTING TWO TIMES PER WEEK - DIRECTED TO TEST BLOOD GLUCOSE 50 Jul 25, 2019 [id number] Nov 12, 2018 PAMELA RAMSEY ALBUTEROL SO4 90MCG/ACTUAT (CFC-F) INHL,ORAL,6.7GM Active INHALE 2 PUFFS BY ORAL INHALATION EVERY 4 HOURS NEEDED FOR BREATHING. SHAKE WELL. RINSE MOUTHPIECE FREQUENTLY TO PREVENT CLOGGING. USE NEEDED FOR SHORTNESS OF AIR/WHEEZING FOR BREATHING. SHAKE WELL. RINSE MOUTHPIECE FREQUENTLY TO PREVENT CLOGGING. USE NEEDED FOR SHORTNESS OF AIR/WHEEZING 1 Dec 19, 2019 [id number] September 04, 2019 PAMELA RAMSEY ALCOHOL PREP PAD Active USE 1 PAD ON SKIN BIW TO CLEAN AND DISINFECT THE SKIN 200 Sep 29, 2020 [id number] Sep 30, 2019 CHUCHOMAURICIOLloyd [facility] ALCOHOL PREP PAD Discontinued USE 1 PAD ON SKIN BI W TO CLEAN AND DISINFECT THE SKIN 200 Dec 19, 2019 [id number] Jun 06, 2019 [facility] ALCOHOL PREP PAD Discontinued USE 1 PAD ON SKIN BI W TO CLEAN AND DISINFECT THE SKIN 200 Jul 25, 2019 [id number] Nov 12, 2018 PAMELA RAMSEY ASPIRIN 25MG/DIPYRIDAMOLE 200MG CAP,SA Active T CHAPIN 1 CAPSULE BY MOUTH TWO TIMES A DAY - SWALLOW WHOLE. DO NOT CRUSH OR CHEW. FOR RECURRENT TIA/STROKE 180 Dec 19, 2019 [id number] Dec 20, 2018 PAMELA RAMSEY ASPIRIN 25MG/DIPYRIDAMOLE 200MG CAP,SA Discontinued T CHAPIN 1 CAPSULE BY MOUTH TWO TIMES A DAY - SWALLOW WHOLE. DO NOT CRUSH OR CHEW. FOR RECURRENT TIA/STROKE 180 Feb 06, 2019 [id number] Sep 28, 2018 ZACHARY GRECO [facility] ASPIRIN 81MG TAB,EC Non- [place] TAKE ONE TABLET BY MOUTH ONCE A DAY Non-VA Documented by: PADMA LONG nted at: [facility] ATORVASTATIN [facility] 80MG TAB Active TAKE ONE TABLET BY MOUTH AT BEDTIME FOR CHOLESTEROL - REPORT ANY UNEXPLAINED MUSCLE PAIN/WEAKNESS TO YOUR PROVIDER 90 Dec 19, 2019 [id number] September 04, 2019 PAMELA RAMSEY ATORVASTATIN CA 80MG TAB Discontinued TAKE ONE TABLET BY MOUTH AT BEDTIME FOR CHOLESTEROL - REPORT ANY UNEXPLAINED MUSCLE PAIN/WEAKNESS TO YOUR PROVIDER 90 Dec 20, 2018 [id number] Nov 12, 2018 PAMELA RAMSEY BUDESONIDE 160MCG/FORMOTEROL FUM 4.5MCG/SPRAY INHL,ORAL,10.2 GM Active INHALE 2 PUFFS BY MOUTH TWO TIMES A DAY FOR BREATHING. SHAKE WELL. RINSE MOUTH AND SPIT AFTER EACH USE. 3 Apr 24, 2020 [id number] August 22, 2019 [facility] OATES [facility] CALCIUM/VITAMIN D TAB No n-[place] TAKE BY MOUTH ONCE A DAY Non-V A Documented by: PADMA LONG nted at: [facility] CARBOXYMETHYLCELLULOSE NA 0.5% SOLN,OPH Active INSTILL ONE DROP IN BOTH EYES FOUR TIMES A DAY FOR DRY EYES 15 Feb 01, 2020 [id number] September 03 0 [facility] DICLOFENAC NA 1% GEL,TOP Discontinued APPLY 2 GRAMS A FFECTED AREA TWO TIMES A DAY NEEDED FOR PAIN AND INFLAMMATION. DO NOT EXCEED 16GM DAILY TO ANY AFFECTED JOINT OF LOWER EXTREMITIES. DO NOT EXCEED 8GM DAILY TO ANY AFFECTED JOINT OF UPPER EXTREMITES. DO NOT EXCEED TOTAL DOSE OF 32GM DAILY FOR ALL JOINTS. 100 Oct 31, 2018 [id number] Oct 06, 2018 ANAYELI KIRKPATRICK [facility] DICLOFENAC NA 1% GEL,TOP APPLY 2 GRAMS A FFECTED AREA TWO TIMES A DAY NEEDED FOR PAIN AND INFLAMMATION. DO NOT EXCEED 16GM DAILY TO ANY AFFECTED JOINT OF LOWER EXTREMITIES. DO NOT EXCEED 8GM DAILY TO ANY AFFECTED JOINT OF UPPER EXTREMITES. DO NOT EXCEED TOTAL DOSE OF 32GM DAILY FOR ALL JOINTS. 100 Jan 17, 2019 [id number] Dec 20, 2018 PAMELA RAMSEY FLUTICASONE PROPIONATE 50MCG/SPRAY SOLN,NASAL,16GM Active INSTILL 1 SPRAY IN EACH NOSTRIL ONCE A DAY SHAKE GENTLY BEFORE USE! - MUST BE USED DIRECTED FOR 3 WEEKS TO PROVIDE BENEFIT. * NO EARLY REFILLS * 1UNIT = 30DAYS AT 4 PF/DAY OR 60DAYS AT 2PF/DAY 2 Dec 19, 2019 [id number] August 26, 2019 PAMELA RAMSEY KETOTIFEN 0.025% SOLN,OPH Active INSTILL 1 DROP IN BOTH EYES TWO TIMES A DAY FOR RELIEF OF ALLERGY SYMPTOMS IN EYE(S) 10 Feb 01, 2020 [id number] September 04, 2019 [facility] LANCET,SOFTCLIX Active USE LANCET BIW FOR TESTING BL OOD GLUCOSE DIRECTED 100 Sep 29, 2020 [id number] Sep 30, 2019 CHUCHOMAURICIO FAUSTIN [facility] LANCET,SOFTCLIX Discontinued USE LANCET BIW FO R TESTING BLOOD GLUCOSE DIRECTED 100 Dec 19, 2019 [id number] Jun 06, 2019 PAMELA RAMSEY LANCET,SOFTCLIX Discontinued USE LANCET BIW FO R TESTING BLOOD GLUCOSE DIRECTED 100 Jul 25, 2019 [id number] Nov 12, 2018 [facility] LISINOPRIL 40MG TAB Non- [place] TAKE ONE-HALF TABLET BY MOUTH EVERY MORNING Non-VA Documented by: PAMELA RAMSEY nted at: [facility] LORATADINE/PSEUDOEPHEDRINE TAB,SA Non-VA TAKE BY MOUTH No n-[place] Documented by: JUAN LANG nted at: [facility] MAGNESIUM OXIDE 250MG TAB Non-VA TAKE 125 [...] ACID (REPLACES ACIPHEX) 180 Dec 19, 2019 [id number] August 26, 2019 PAMELA RAMSEY POTASSIUM GLUCONATE TAB Non-VA TAKE 595MG BY MOUTH ONCE A DAY N on-VA Documented by: PADMA LONG nted at: [facility] PRASUGREL HCL 10MG TAB N on-VA TAKE ONE TABLET BY MOUTH ONCE A DAY Non-VA Documented by: KATHERINE MATT nted at: [facility] PREGABALIN 150MG CAP,ORAL Non-VA TAKE 1 [...] Documented by: ANAYELI KIRKPATRICK Docume nted at: [facility] TERBINAFINE HCL 1% CREAM,TOP Active APPLY LIGHT LY TO AFFECTED AREA TWO TIMES A DAY FOR INFECTION Sep 23, 2020 [id number] Sep 24, 2019 ADRIEL HERNANDEZ UREA 20% CREAM,TOP Active APPLY LIGHTLY (20%) TO AFFECTED AREA TWO TIMES A DAY NEEDED TO PROMOTE HEALING,RUB IN UNTIL COMPLETELY ABSORBED*FOR TOPICAL USE ONLY* APPLY TO BOTH FEET DIRECTED. Sep 25, 2020 [id number] Sep 26, 2019 ADRIEL HERNANDEZ Problems (Conditions): All historical and current Section Date Range: From patient's date of to the date document was create d. This section includes a list of Problems (Conditions) know n to [place] for the patient. It includes both active and inacti ve problems (conditions). The data comes from all [place] treatment facilities. Problem Status Problem Code Date of Onset Date of Resolution Comm ent(s) Provider Source Alcohol intake above recommended sensible limits Active [id number] PADMA LONG [facility] Allergic conjunctivitis Active 422023646 RIO VERDENEDA [facility] Bilateral senile combined form cataracts of eyes Active 33296263888 9108 RIO VERDEFACUNDONEDA J [facility] Bilateral tinnitus Active 5515102895363 CHASTITY JEAN [facility] Coronary arteriosclerosis Active 90761762 September 08, 2014 Entered By: PADMA LONG Comment: hx of ptca to RCA several yrs. agoSeptember 08, 2014 Entered By: PADMA LONG Comment: heart cath 09/01/14, neg. / previous stent to RCA,, [place] HATCHERJENNEY R [facility]. [facility] Diabetes mellitus Active 99131983 BRAULIOPAMELA TOMAS [facility] Disorder of pancreas Active 8359517 September 08, 2014 Entered By: PADMA LONG Comment: 2.5cm low density lseion in bodyMay 2014 Entered By: PADMA LONG Comment: question of communication with pancreatic ductMay 2014 Entered By: PADMA LONG Comment: favored to be cystic pancreatic cancerMay 2014 Entered By: PADMA LONG Comment: per abdominal CT 09/01/14, [place] PADMA LONG Juan M [facility] Dry eyes Active 115683414 [facility] SHAW [facility] Gastro-esophageal reflux disease without esophagitis ( SNOMED CT 677437145) Active 101410735 ALF GUEVARA [facility] Hyperlipidemia (SNOMED CT 95148375) Active 82378361 PAMELA RAMSEY [facility] Lung mass Active 136042479 September 08, 2014 E ntered By: PADMA LONG Comment: 4.5 cm mass, post. segment right upper lobe.September 08, 2014 Entered By: PADMA LONG Comment: mild adenopathy in mediastinum and bilat. [email or web address] Entered By: PADMA LONG Comment: most likely related to lung [id number] Entered By: PADMA LONG Comment: per ct angio of chest with contrast 09/01/14,via [place], [place] 23, 2014 Entered By: PADMA LONG Comment: per path report- mod. differentiated bronchogenic adenoca. 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 Active 87514872 KATHERINE MATT [facility] Obesity Active 271755240 SONG BULLOCK [facility] Obstructive sleep apnea syndrome (SNOMED CT 03046287) Active 537593 015 PHIL[place] DOUGLASS [facility] Pancreatic cyst Active 25339763 JAYLENE GUEVARA [facility] Papilloma of right eyelid Active 109824920050569 NEDA SHAW [facility] Polyp of colon Active 84951341 Jan 23 Entered By: PADMA LONG Comment: c-scope 01/17/16, multiple benign colonic polypsJun 28, 2017 Entered By: PADMA LONG Comment: c-scope,06/25/17,[facility], three benign polyps- sigmoid colon, transverse colon,cecum. see path report cprs SHARRON TORRES MO THAYER [facility] Pulmonary emphysema Active 40910324 0 BRIANA LESLYE [facility] Sensorineural hearing loss, bilateral Active 003522493 CHASTITY JEAN [facility] Snoring Active 41038786 SONG BULLOCK [facility] Type 2 diabetes mellitus without complication Active 735976636 NEDA SHAW [facility] Environmental Allergies (ICD-9-CM 477.9) Inactive 477.9 Dec 18, 2017 PADMA LONG [facility] External hemorrhoids without mention of complication (ICD-9- CM 455.3) Inactive 455.3 Dec 18, 2017 PADMA LONG [facility] Impotence of organic origin (ICD-9-CM 607.84) Inactive 607.84 Dec 18, 2017 PADMA LONG [facility] Screening for Lipoid disorders (ICD-9-CM V77.91) Inactive V77.91 Jan 18, 2007 PADMA LONG [facility] Stye * (ICD-9-CM 373.11) Inactive 373.11 Dec 18, 201 8 Jan 18, 2007 Entered By: PADMA LONG Comment: bilat lower lids, chronic/recurrent PADMA LONG [facility] Tobacco Use Disorder, Continuous Inactive 305.1 Dec 18, 2017 Jan 18, 2007 Entered By: PADMA LONG Comment: one ppd PADMA LONG [facility] Radiology Reports: +/- 30 days of the [...] the Encounter. The data comes from all [facility] facilities. Date/Time Pathology Report Provider Source Apr [...] 11:11) Microscopic examination is performed. DIAGNOSIS: Specimen: [id number] Spec Type: SURGICAL Abdulkadir: 04/03/19 Rec: 04/03/19-1241 PATHOLOGIC DIAGNOSIS Skin lesion, right upper cheek, biopsy: 1. Seborrheic keratosis, not involving resection margins. 2. Solar elastosis. Skin lesion, right lower mid margin, biopsy: 1. Seborrheic keratosis, with tumor at tissue edge/margin, but with benign features. LL COPIES TO: KATHERINE MATT [facility] PATHOLOGIST CODES: 21345/2 at 1235 The gross and microscopic examinations and interpretation were performed at [facility] Department of Pathology, [address] [place] [id number]. Slides and paraffin blocks are on file at [facility]. =--=--=--=--=--=--=--=--=--=--=--=--=--=--=--=--=--=--=--=--=--=--=--=--=--=-- Performing Laboratory: Surgical Pathology Report Performed By: [facility] [CLIA# [id number]] [address] [place] [id number] [address] LANGFORD [facility] 15 Encounter Notes: All associated encounter notes No Data Provided for This Section
--- OUTSIDE RECORDS SUMMARY | 2019-11-11 02:16 | XMS REPORT | Encounter Summary ---
Author [facility] Organization [facility] of [facility] Address [address] [place] [address] Phone Unavailable Care Team Providers Care German Professor Name Role Phone ADRIEL HERNANDEZ PCP Unavailable Insurance Providers: All historical and current No Data Provided for This Section Selected Encounter This section includes the information on record at [place] for the Encounter. Date/Time Encounter Type Encounter Description Reason Provider Source Jan 22, 2019 02:08 PM Outpatient Encounter ADMIN PAT ACTIVTIES (MASVIELKA NCT) [facility]UR BLAS [facility] IHE Encounter Template Text not used by [place] Assessments - Encounter Diagnoses No Data Provided for This Section Plan of Treatment: Future Appointments (+ 6 months) and Future Tests (+/- 45 day s) The Plan of Treatment section includes future care activities for the patient fr om all [place] treatment facilities. This section includes future appointments and fu ture orders which are active, pending or scheduled. Future Appointments This section includes appointments that were scheduled t o occur 6 months from the date of the Encounter, up to a maximum of 20 appointme nts. The data comes from all [place] treatment facilities. Appointment Date/Time Appointment Type Appointment Facili ty Name Jan 31, 2019 09:00 AM AMBULATORY - [facility] Mar 10, 2019 12:30 PM AMBULATORY - SURGERY [facility] Mar 21, 2019 09:15 AM AMBULATORY - NONE [facility] Mar 21, 2019 09:30 AM AM[facility]ULATORY - [facility]ICINE [facility] Mar 21, 2019 09:31 AM AMBULATORY - MEDICINE [facility] Mar 21, 2019 10:00 AM AMBULATORY - MEDICINE [facility] Mar 21, 2019 10:01 AM AMBULATORY - MEDICINE [facility] [place] LEVIMila Maite [facility] Mar 26, 2019 10:00 AM [facility] N[facility] Apr 03, 2019 10:00 AM [facility] - SURGERY [facility]UR BL[facility] Apr 14, 2019 10:00 AM AMBULATORY - SURGERY [facility] Apr 28, 2019 11:00 AM AMBULATORY - NONE ARTUR BLAS [facility] Jun 25, 2019 11:30 AM AMBULATORY - NONE [facility] [place] Jun 25, 2019 01:15 PM AMBULATORY - MEDICINE [facility] Jul 23, 2019 11:00 AM [facility] NONE [facility] Surgical Procedures: All associated to the encounter [...] and tobacco- related health factors from the [place] facility where the Encounter took place. Current Smoking Status This section includes the most current smoking, or tobacco -related health factor, from the [place] facility where the Encounter took place. Date/Time Current Smoking Status Comment Facility Jun 26, 2018 02:13 PM VA-TOBACCO QUIT 15 YRS OR MORE [facility] Tobacco Use History This section includes a history of the smoking, or tobacco -related health factors, that were collected on or before the date of the Encoun ter. The data comes from the [place] facility where the Encounter took place. Date/Time Smoking Status/Tobacco Use Comment [facility] Jun 26, 2018 02:13 PM [place]-TOBACCO QUIT 15 YRS OR MORE [facility]SHA [facility] Jun 27, 2017 01:39 PM NON-TOBACCO USER [facility] Jun 27, 2017 01:16 PM NON-TOBACCO USER [facility] [place] [facility] Jan 06, 2015 02:07 PM NON-TOBACCO USER [facility] C Nov 23, 2014 10:38 AM NON-TOBACCO USER [facility] C Oct 26, 2014 10:36 AM NON-TOBACCO USER [facility]UR [place] C Oct 14, 2014 11:09 AM NON-TOBACCO USER ARTUR Mi Advance Directives: All historical and current No Data Provided for This Section Allergies and Adverse Reactions (ADRs): All historical and current Section Date Range: From patient's date of to the date document was create d. This section includes Allergies and Adverse Reactions (ADR s) on record with VA for the patient. The data comes from a ll [place] treatment facilities. It does not list Allergies/ADRs that were removed or entered in error. Some allergies/ADRs may be reported in t he Immunization section. Allergen Event Date Event Type Reaction(s) Severity Source [place] September 08, 2014 Propensity to adverse reactions to drug (diso rder) [facility], [facility] 15 [place] September 08, 2014 Propensity to adverse reactions to drug (diso rder) [facility], [facility] 15 Medications: VA dispensed (-15 months) and Non-VA Documented (Obtained Outside A) Section Date Range: 1) prescriptions processed by a VA pharmacy in the last 15 m [facility], and 2) all medications recorded in the [place] medical record as "non-VA medic ations". Pharmacy terms refer to [place] pharmacy's work on prescriptions. VA patient s are advised to take their medications as instructed by their health care team. The data comes from all [place] treatment facilities. Glossary of Pharmacy Terms:Active = A prescription that can be filled at the local [place] pharmacy.Active: On Hold = An active prescription that will not be filled until pharmacy resolves the issue.Active: Susp = An active prescription that is not scheduled to be filled yet.Clinic Order = A medication received during a visit to a [place] clinic or emergency department (currently not available).Discontinued [...] may be a prescription from either the [place] or other providers that was filled outside the [place]. Or, it may be an over the [...] TEST BLOOD GLUCOSE 50 Dec 19, 2019 [id number] September 04, 2019 PAMELA RAMSEY ACCU-CHEK CHARLES PLUS (GLUCOSE) TEST STRIP Discontinued USE 1 STRIP FOR TESTING TWO TIMES PER WEEK - DIRECTED TO TEST BLOOD GLUCOSE 50 Jul 25, 2019 [id number] Nov 12, 2018 PAMELA RAMSEY ALBUTEROL SO4 90MCG/ACTUAT (CFC-F) INHL,ORAL,6.7GM Active INHALE 2 PUFFS BY ORAL INHALATION EVERY 4 HOURS NEEDED FOR BREATHING. SHAKE WELL. RINSE MOUTHPIECE FREQUENTLY TO PREVENT CLOGGING. USE NEEDED FOR SHORTNESS OF AIR/WHEEZING FOR BREATHING. SHAKE WELL. RINSE MOUTHPIECE FREQUENTLY TO PREVENT CLOGGING. USE NEEDED FOR SHORTNESS OF AIR/WHEEZING 1 Dec 19, 2019 [id number] September 04, 2019 PAMELA RAMSEY CBGUILLERMO ALCOHOL PREP PAD Active USE 1 PAD ON SKIN BIW TO CLEAN AND DISINFECT THE SKIN 200 Sep 29, 2020 [id number] Sep 30, 2019 MAURICIO RANKIN CBGUILLERMO ALCOHOL PREP PAD Discontinued USE 1 PAD ON SKIN BI W TO CLEAN AND DISINFECT THE SKIN 200 Dec 19, 2019 [id number] Jun 06, 2019 PAMELA RAMSEY CBGUILLERMO ALCOHOL PREP PAD Discontinued USE 1 PAD ON SKIN BI W TO CLEAN AND DISINFECT THE SKIN 200 Jul 25, 2019 [id number] Nov 12, 2018 PAMELA RAMSEY CBGUILLERMO ASPIRIN 25MG/DIPYRIDAMOLE 200MG CAP,SA Active T CAHPIN 1 CAPSULE BY MOUTH TWO TIMES A DAY - SWALLOW WHOLE. DO NOT CRUSH OR CHEW. FOR RECURRENT TIA/STROKE 180 Dec 19, 2019 [id number] Dec 20, 2018 PAMELA RAMSEY ASPIRIN 25MG/DIPYRIDAMOLE 200MG CAP,SA Discontinued T CHAPIN 1 CAPSULE BY MOUTH TWO TIMES A DAY - SWALLOW WHOLE. DO NOT CRUSH OR CHEW. FOR RECURRENT TIA/STROKE 180 Feb 06, 2019 [id number] Sep 28, 2018 ZACHARY GRECO V [facility] ASPIRIN 81MG TAB,EC Non- VA TAKE ONE TABLET BY MOUTH ONCE A DAY Non-VA Documented by: PADMA LONG nted at: [facility] NESS ATORVASTATIN [place] 80MG TAB Active TAKE ONE TABLET BY MOUTH AT BEDTIME FOR CHOLESTEROL - REPORT ANY UNEXPLAINED MUSCLE PAIN/WEAKNESS TO YOUR PROVIDER 90 Dec 19, 2019 [id number] September 04, 2019 PAMELA RAMSEY ATORVASTATIN [place] 80MG TAB Discontinued TAKE ONE TABLET BY MOUTH AT BEDTIME FOR CHOLESTEROL - REPORT ANY UNEXPLAINED MUSCLE PAIN/WEAKNESS TO YOUR PROVIDER 90 Dec 20, 2018 [id number] Nov 12, 2018 PAMELA RAMSEY BUDESONIDE 160MCG/FORMOTEROL FUM 4.5MCG/SPRAY INHL,ORAL,10.2 GM Active INHALE 2 PUFFS BY MOUTH TWO TIMES A DAY FOR BREATHING. SHAKE WELL. RINSE MOUTH AND SPIT AFTER EACH USE. 3 Apr 24, 2020 [id number] August 22, 2019 LISSA OATES [facility] CALCIUM/VITAMIN D TAB No n-VA TAKE BY MOUTH ONCE A DAY Non-V A Documented by: PADMA LONG nted at: PRIMITIVO NESS CARBOXYMETHYLCELLULOSE NA 0.5% SOLN,OPH Active INSTILL ONE DROP IN BOTH EYES FOUR TIMES A DAY FOR DRY EYES 15 Feb 01, 2020 [id number] September 03 0 [facility] DICLOFENAC NA 1% GEL,TOP Discontinued APPLY 2 GRAMS A FFECTED AREA TWO TIMES A DAY NEEDED FOR PAIN AND INFLAMMATION. DO NOT EXCEED 16GM DAILY TO ANY AFFECTED JOINT OF LOWER EXTREMITIES. DO NOT EXCEED 8GM DAILY TO ANY AFFECTED JOINT OF UPPER EXTREMITES. DO NOT EXCEED TOTAL DOSE OF 32GM DAILY FOR ALL JOINTS. 100 Oct 31, 2018 [id number] Oct 06, 2018 ANAYELI KIRKPATRICK [facility] DICLOFENAC NA 1% GEL,TOP APPLY 2 GRAMS A FFECTED AREA TWO TIMES A DAY NEEDED FOR PAIN AND INFLAMMATION. DO NOT EXCEED 16GM DAILY TO ANY AFFECTED JOINT OF LOWER EXTREMITIES. DO NOT EXCEED 8GM DAILY TO ANY AFFECTED JOINT OF UPPER EXTREMITES. DO NOT EXCEED TOTAL DOSE OF 32GM DAILY FOR ALL JOINTS. 100 Jan 17, 2019 [id number] Dec 20, 2018 PAMELA RAMSEY FLUTICASONE PROPIONATE 50MCG/SPRAY SOLN,NASAL,16GM Active INSTILL 1 SPRAY IN EACH NOSTRIL ONCE A DAY SHAKE GENTLY BEFORE USE! - MUST BE USED DIRECTED FOR 3 WEEKS TO PROVIDE BENEFIT. * NO EARLY REFILLS * 1UNIT = 30DAYS AT 4 PF/DAY OR 60DAYS AT 2PF/DAY 2 Dec 19, 2019 [id number] August 26, 2019 PAMELA RAMSEY KETOTIFEN 0.025% SOLN,OPH Active INSTILL 1 DROP IN BOTH EYES TWO TIMES A DAY FOR RELIEF OF ALLERGY SYMPTOMS IN EYE(S) Feb 01, 2020 [id number] September 04, 2019 [facility] LANCET,SOFTCLIX Active USE LANCET BIW FOR TESTING BL OOD GLUCOSE DIRECTED Sep 29, 2020 [id number] Sep 30, 2019 MAURICIO RANKIN [facility] LANCET,SOFTCLIX Discontinued USE LANCET BIW FO R TESTING BLOOD GLUCOSE DIRECTED Dec 19, 2019 [id number] Jun 06, 2019 PAMELA RAMSEY LANCET,SOFTCLIX Discontinued USE LANCET BIW FO R TESTING BLOOD GLUCOSE DIRECTED Jul 25, 2019 [id number] Nov 12, 2018 PAMELA RAMSEY LISINOPRIL 40MG TAB Non- [place] TAKE ONE-HALF TABLET BY MOUTH EVERY MORNING Non-VA Documented by: PAMELA RAMSEY nted at: [facility] NESS LORATADINE/PSEUDOEPHEDRINE TAB,SA Non-VA TAKE BY MOUTH No n-VA Documented by: JUAN LANG nted at: [facility] MAGNESIUM OXIDE 250MG TAB Non-VA TAKE 125 TABLETS BY MOUTH ONCE A DAY Non-VA Documented by: PADMA LONGume nted at: PRIMITIVO NESS MONTELUKAST NA 10MG TAB Non-VA TAKE ONE TABLET BY MOUTH EVERY EVENING Non-VA Documented by: PAMELA RAMSEY Docume nted at: PRIMITIV[facility] NESS OMEPRAZOLE 20MG CAP,EC Active TAKE 2 CAPSULES B Y MOUTH BEFORE BREAKFAST 30 MINUTES BEFORE EATING TO LOWER STOMACH ACID (REPLACES ACIPHEX) 180 Dec 19, 2019 [id number] August 26, 2019 PAMELA RAMSEY POTASSIUM GLUCONATE TAB Non-VA TAKE 595MG BY MOUTH ONCE A DAY N on-VA Documented by: PADMA LONG Docume nted at: PRIMITIVO NESS PRASUGREL HCL 10MG TAB N on-VA TAKE ONE TABLET BY MOUTH ONCE A DAY Non-VA Documented by: KATHERINE MATT Docume nted at: [facility] PREGABALIN 150MG CAP,ORAL Non-VA TAKE 1 CAPSULE [...] ANAYELI KIRKPATRICK Docume nted at: [facility] BL[facility] TERBINAFINE HCL 1% CREAM,TOP Active APPLY LIGHT LY TO AFFECTED AREA TWO TIMES A DAY FOR INFECTION Sep 23, 2020 [id number] Sep 24, 2019 ADRIEL HERNANDEZ UREA 20% CREAM,TOP Active APPLY LIGHTLY (20%) TO AFFECTED AREA TWO TIMES A DAY NEEDED TO PROMOTE HEALING,RUB IN UNTIL COMPLETELY ABSORBED*FOR TOPICAL USE ONLY* APPLY TO BOTH FEET DIRECTED. 90 Sep 25, 2020 [id number] Sep 26, 2019 ADRIEL HERNANDEZ Problems (Conditions): All historical and current Section Date Range: From patient's date of to the date document was create d. This section includes a list of Problems (Conditions) know n to [facility] for the patient. It includes both active and inacti ve problems (conditions). The data comes from all [place] treatment facilities. Problem Status Problem Code Date of Onset Date of Resolution Comm ent(s) Provider Source Alcohol intake above recommended sensible limits Active 525285148 PADMA LONG [facility] Allergic conjunctivitis Active 021420377 FORESTDALEFACUNDONEDA J [facility] Bilateral senile combined form cataracts of eyes Active 93169164900 9108 COLINFACUNDONEDA J [facility] Bilateral tinnitus Active 1452712166610 CHASTITY JEAN Nicol [facility] Coronary arteriosclerosis Active 31416750 September 08, 2014 Entered By: PADMA LONG Comment: hx of ptca to RCA several yrs. agoSeptember 08, 2014 Entered By: PADMA LONG Comment: heart cath 09/01/14, neg. / previous stent to RCA,, via abida meneses ks HATCHER, JENNEY R [facility] Diabetes mellitus Active 61904869 PAMELA RAMSEY [facility] Disorder of pancreas Active 6176998 September 08, 2014 Entered By: PADMA LONG Comment: 2.5cm low density lseion in bodyMay 2014 Entered By: PADMA LONG Comment: question of communication with pancreatic ductMay 2014 Entered By: PADMA LONG Comment: favored to be cystic pancreatic cancerMay 2014 Entered By: PADMA LONG Comment: per abdominal CT 09/01/14, via abida meneses ks FRAZIER, JAY J [facility] Dry eyes Active 893715210 FORESTDALEFACUNDONEDA Luda PORSHA Block [facility] Gastro-esophageal reflux disease without esophagitis ( SNOMED CT 609477120) Active 491330755 ALF GUEVARA [facility] Hyperlipidemia (SNOMED CT 66970943) Active 68378672 PAMELA RAMSEY [facility] Lung mass Active 279631686 September 08, 2014 E ntered By: PADMA LONG Comment: 4.5 cm mass, post. segment right upper lobe.September 08, 2014 Entered By: PADMA LONG Comment: mild adenopathy in mediastinum and bilat. [email or web address] Entered By: PADMA LONG Comment: most likely related to lung [email or web address] Entered By: PADMA LONG Comment: per ct angio of chest with contrast 09/01/14,via zairachebanse,[facility] 2014 Entered By: PADMA LONG Comment: per path report- mod. differentiated bronchogenic adenoca. 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 Active 21276117 KATHERINE MATT [facility] Obesity Active 703780978 [facility] Obstructive sleep apnea syndrome (SNOMED CT 98836818) Active 650745 015 PH[place] DOU[place]ASS [facility] Pancreatic cyst Active 47601798 JAYLENE GUEVARA [facility] Papilloma of right eyelid Active 462966735729459 N[facility]A SHAW [facility] Polyp of colon Active 94646680 Jan 23 Entered By: PADMA LONG Comment: c-scope 01/17/16, multiple benign colonic polypsJun 28, 2017 Entered By: PADMA LONG Comment: c-scope,06/25/17,[facility], three benign polyps- sigmoid colon, transverse colon,cecum. see path report cprs SHARRON TORRES [facility] Pulmonary emphysema Active 56586776 0 BRIANA GAVIN [facility] Sensorineural hearing loss, bilateral Active 949510800 CHASTITY JEAN [facility] Snoring Active 07850379 SONG BULLOCK [facility] Type 2 diabetes mellitus without complication Active 687853935 [facility] Environmental Allergies (ICD-9-CM 477.9) Inactive 477.9 Dec 18, 2017 PADMA LONG [facility] External hemorrhoids without mention of complication (ICD-9- CM 455.3) Inactive 455.3 Dec 18, 2017 PADMA LONG [facility] Impotence of organic origin (ICD-9-CM 607.84) Inactive 607.84 Dec 18, 2017 PADMA LONG [facility] Screening for Lipoid disorders (ICD-9-CM V77.91) Inactive V77.91 Jan 18, 2007 PADMA LONG [facility] Stye * (ICD-9-CM 373.11) Inactive 373.11 Dec 18, 201 8 Jan 18, 2007 Entered By: PADMA LONG Comment: bilat lower lids, chronic/recurrent PADMA LONG [facility] Tobacco Use Disorder, Continuous Inactive 305.1 Dec 18, 2017 Jan 18, 2007 Entered By: PADMA LONG Comment: one ppd PADMA LONG [facility] Radiology Reports: +/- 30 days of the encounter No Data Provided for This Section Pathology Reports: +/- 30 days of the encounter No Data Provided for This Section Encounter Notes: All associated encounter notes This section contains the clinical notes associated to the Encounter. Date/Time Encounter Note(s) Provider Source Jan 22, 2019 02:08 PM ADMINISTRATIVE NOTE: LOCAL TITLE: [place] STANDARD TITLE: ADMINISTRATIVE NOTE DATE OF NOTE: JAN 22, 2019@14:08 ENTRY DATE: JAN 22, 2019@14:08:42 AUTHOR: HUBERT GUZMAN EXP COSIGNER: URGENCY: STATUS: COMPLETED Jinny from [employer] called and stated this p/t may be late by 20 minutes to his appointment. Notfied the [facility] about it. And she stated they could work him in , that he may have to wait. They will work him in between p/ts /es/ HUBERT GUZMAN [facility] Signed: 01/22/2019 14:12 HUBERT GUZMAN [facility]
--- OUTSIDE RECORDS SUMMARY | 2019-11-11 02:16 | XMS REPORT | Encounter Summary ---
Author Author Department [facility] HERBERTH kline Organization Department of [facility] Address [address] [place] [address] Phone Unavailable Care Team Providers Care Alliances Consultant Name Role Phone ADRIEL HERNANDEZ PCP Unavailable Insurance Providers: All historical and current No Data Provided for This Section Selected Encounter This section includes the information on record at AL for the Encounter. Date/Time Encounter Type Encounter Description Reason Provider Source Mar 26, 2019 10:00 AM Outpatient Encounter [facility] 15 IHE Encounter Template Text not used by AL Assessments - Encounter Diagnoses No Data Provided for This Section Plan of Treatment: Future Appointments (+ 6 months) and Future Tests (+/- 45 day s) The Plan of Treatment section includes future care activities for the patient fr om all [place] treatment facilities. This section includes future appointments and fu ture orders which are active, pending or scheduled. Future Appointments This section includes appointments that were scheduled t o occur 6 months from the date of the Encounter, up to a maximum of 20 appointme nts. The data comes from all [place] treatment facilities. Appointment Date/Time Appointment Type Appointment Facili ty Name Apr 03, 2019 10:00 AM AMBULATORY - SURGERY ARTUR BLAS [facility] Apr 14, 2019 10:00 AM AMBULATORY - SURGERY [facility] Apr 28, 2019 11:00 AM AMBULATORY - NONE [facility] Jun 25, 2019 11:30 AM AMBULATORY - NONE [facility] Jun 25, 2019 01:15 PM AMBULATORY - MEDICINE ARTUR BLAS [facility] Jul 23, 2019 11:00 AM AMBULATORY - NONE [facility] Jul 25, 2019 08:00 AM AMBULATORY - NONE [facility] Aug 07, 2019 10:30 AM AMBULATORY - MEDICINE ARTUR BLAS [facility] Sep 23, 2019 11:15 AM AMBULATORY - NONE [facility] Sep 23, 2019 11:30 AM AMBULATORY - MEDICINE [facility] Active, Pending, and Scheduled Orders This section [...] the Encounter. The data comes from all [place] treatment facilities. Test Date/Time Test Type Test Details Facility Name Apr 01, 2019 10:33 AM Consult Order [facility]-[id number] Cons [employer] Procedures: All associated to the encounter No Data Provided for This Section Lab Results: +/- 30 days of the encounter This section includes the Chemistry and Hematology Lab R esults on record with AL for the patient. Radiology Reports and Pathology Report s are provided separately, in subsequent sections. Lab Results This section contains the Chemistry/Hematology Results usha t were resulted 30 days before or 30 days after the date of the Encounter. Date/Time Source Result Type Result - Unit Interpretation Reference Range Comment Mar 21, 2019 08:55 AM [facility] HEMOGLOBIN A1C Specimen Type: BLOOD No comment [...] patient. The data comes from a ll [place] treatment facilities. It does not list Allergies/ADRs that were removed or entered in error. Some allergies/ADRs may be reported in t he Immunization section. Allergen Event Date Event Type Reaction(s) Severity Source [place] September 08, 2014 Propensity to adverse reactions to drug (diso rder) [facility] 15 [place] September 08, 2014 Propensity to adverse reactions to drug (diso rder) [facility] Medications: VA dispensed (-15 months) and Non-VA Documented (Obtained Outside V A) Section Date Range: 1) prescriptions processed by a VA pharmacy in the last 15 m [facility], and 2) all medications recorded in the AL medical record as "non-VA medic ations". Pharmacy terms refer to AL pharmacy's work on prescriptions. VA patient s are advised to take their medications as instructed by their health care team. The data comes from all [place] treatment facilities. Glossary of Pharmacy Terms:Active = A prescription that can be filled at the local [place] pharmacy.Active: On Hold = An active prescription that will not be filled until pharmacy resolves the issue.Active: Susp = An active prescription that is not scheduled to be filled yet.Clinic Order = A medication received during a visit to a AL clinic or emergency department (currently not available).Discontinued [...] TEST BLOOD GLUCOSE 50 Dec 19, 2019 [id number] September 04, 2019 PAMELA RAMSEY ACCU-CHEK CHARLES PLUS (GLUCOSE) TEST STRIP Discontinued USE 1 STRIP FOR TESTING TWO TIMES PER WEEK - DIRECTED TO TEST BLOOD GLUCOSE 50 Jul 25, 2019 [id number] Nov 12, 2018 PAMELA RAMSEY ALBUTEROL SO4 90MCG/ACTUAT (CFC-F) INHL,ORAL,6.7GM Active INHALE 2 PUFFS BY ORAL INHALATION EVERY 4 HOURS NEEDED FOR BREATHING. SHAKE WELL. RINSE MOUTHPIECE FREQUENTLY TO PREVENT CLOGGING. USE NEEDED FOR SHORTNESS OF AIR/WHEEZING FOR BREATHING. SHAKE WELL. RINSE MOUTHPIECE FREQUENTLY TO PREVENT CLOGGING. USE NEEDED FOR SHORTNESS OF AIR/WHEEZING 1 Dec 19, 2019 [id number] September 04, 2019 PAMELA RAMSEY CBGUILLERMO ALCOHOL PREP PAD Active USE 1 PAD ON SKIN BIW TO CLEAN AND DISINFECT THE SKIN 200 Sep 29, 2020 [id number] Sep 30, 2019 MAURICIO RANKIN [facility] ALCOHOL PREP PAD Discontinued USE 1 PAD ON SKIN BI W TO CLEAN AND DISINFECT THE SKIN 200 Dec 19, 2019 [id number] Jun 06, 2019 [facility]ELA RAMSEY [facility] ALCOHOL PREP PAD Discontinued USE 1 PAD ON SKIN BI W TO CLEAN AND DISINFECT THE SKIN 200 Jul 25, 2019 [id number] Nov 12, 2018 PAMELA RAMSEY ASPIRIN 25MG/DIPYRIDAMOLE 200MG CAP,SA Active T CHAPIN 1 CAPSULE BY MOUTH TWO TIMES A DAY - SWALLOW WHOLE. DO NOT CRUSH OR CHEW. FOR RECURRENT TIA/STROKE 180 Dec 19, 2019 [id number] Dec 20, 2018 PAMELA RAMSEY ASPIRIN 25MG/DIPYRIDAMOLE 200MG CAP,SA Discontinued T CHAPIN 1 CAPSULE BY MOUTH TWO TIMES A DAY - SWALLOW WHOLE. DO NOT CRUSH OR CHEW. FOR RECURRENT TIA/STROKE 180 Feb 06, 2019 [id number] Sep 28, 2018 ZACHARY GRECO [facility] ASPIRIN 81MG TAB,EC Non- VA TAKE ONE TABLET BY MOUTH ONCE A DAY Non-VA Documented by: PADMA LONG nted at: [facility] ATORVASTATIN CA 80MG TAB Active TAKE ONE TABLET BY MOUTH AT BEDTIME FOR CHOLESTEROL - REPORT ANY UNEXPLAINED MUSCLE PAIN/WEAKNESS TO YOUR PROVIDER 90 Dec 19, 2019 [id number] September 04, 2019 PAMELA RAMSEY ATORVASTATIN CA 80MG TAB Discontinued TAKE ONE TABLET BY MOUTH AT BEDTIME FOR CHOLESTEROL - REPORT ANY UNEXPLAINED MUSCLE PAIN/WEAKNESS TO YOUR PROVIDER 90 Dec 20, 2018 [id number] Nov 12, 2018 PAMELA RAMSEY BUDESONIDE 160MCG/FORMOTEROL FUM 4.5MCG/SPRAY INHL,ORAL,10.2 GM Active INHALE 2 PUFFS BY MOUTH TWO TIMES A DAY FOR BREATHING. SHAKE WELL. RINSE MOUTH AND SPIT AFTER EACH USE. 3 Apr 24, 2020 [id number] August 22, 2019 LISSA OATES [facility] CALCIUM/VITAMIN D TAB No n-VA TAKE BY MOUTH ONCE A DAY Non-V A Documented by: PADMA LONG nted at: [facility] CARBOXYMETHYLCELLULOSE NA 0.5% SOLN,OPH Active INSTILL ONE DROP IN BOTH EYES FOUR TIMES A DAY FOR DRY EYES 15 Feb 01, 2020 [id number] September 03 0 [facility] DICLOFENAC NA 1% GEL,TOP Discontinued APPLY 2 GRAMS A FFECTED AREA TWO TIMES A DAY NEEDED FOR PAIN AND INFLAMMATION. DO NOT EXCEED 16GM DAILY TO ANY AFFECTED JOINT OF LOWER EXTREMITIES. DO NOT EXCEED 8GM DAILY TO ANY AFFECTED JOINT OF UPPER EXTREMITES. DO NOT EXCEED TOTAL DOSE OF 32GM DAILY FOR ALL JOINTS. 100 Oct 31, 2018 [id number] Oct 06, 2018 ANAYELI KIRKPATRICK [facility] DICLOFENAC NA 1% GEL,TOP APPLY 2 GRAMS A FFECTED AREA TWO TIMES A DAY NEEDED FOR PAIN AND INFLAMMATION. DO NOT EXCEED 16GM DAILY TO ANY AFFECTED JOINT OF LOWER EXTREMITIES. DO NOT EXCEED 8GM DAILY TO ANY AFFECTED JOINT OF UPPER EXTREMITES. DO NOT EXCEED TOTAL DOSE OF 32GM DAILY FOR ALL JOINTS. 100 Jan 17, 2019 [id number] Dec 20, 2018 PAMELA RAMSEY FLUTICASONE PROPIONATE 50MCG/SPRAY SOLN,NASAL,16GM Active INSTILL 1 SPRAY IN EACH NOSTRIL ONCE A DAY SHAKE GENTLY BEFORE USE! - MUST BE USED DIRECTED FOR 3 WEEKS TO PROVIDE BENEFIT. * NO EARLY REFILLS * 1UNIT = 30DAYS AT 4 PF/DAY OR 60DAYS AT 2PF/DAY 2 Dec 19, 2019 [id number] August 26, 2019 PAMELA RAMSEY KETOTIFEN 0.025% SOLN,OPH Active INSTILL 1 DROP IN BOTH EYES TWO TIMES A DAY FOR RELIEF OF ALLERGY SYMPTOMS IN EYE(S) Feb 01, 2020 [id number] September 04, 2019 [facility] LANCET,SOFTCLIX Active USE LANCET BIW FOR TESTING BL OOD GLUCOSE DIRECTED 100 Sep 29, 2020 [id number] Sep 30, 2019 CHUCHOMAURICIOLloyd [facility] LANCET,SOFTCLIX Discontinued USE LANCET BIW FO R TESTING BLOOD GLUCOSE DIRECTED 100 Dec 19, 2019 [id number] Jun 06, 2019 PAMELA RAMSEY LANCET,SOFTCLIX Discontinued USE LANCET BIW FO R TESTING BLOOD GLUCOSE DIRECTED 100 Jul 25, 2019 [id number] Nov 12, 2018 PAMELA RAMSEY LISINOPRIL 40MG TAB Non- VA TAKE ONE-HALF TABLET BY MOUTH EVERY MORNING Non-VA Documented by: PAMELA RAMSEY nted at: [facility] LORATADINE/PSEUDOEPHEDRINE TAB,SA Non-VA TAKE BY MOUTH No n-VA Documented by: JUAN LANG nted at: ARTUR BLAS [facility] MAGNESIUM OXIDE 250MG TAB Non-VA TAKE [...] ACID (REPLACES ACIPHEX) 180 Dec 19, 2019 [id number] August 26, 2019 PAMELA RAMSEY POTASSIUM GLUCONATE TAB Non-VA TAKE 595MG BY MOUTH ONCE A DAY N on-VA Documented by: PADMA LONG nted at: [facility] PRASUGREL HCL 10MG TAB N on-VA TAKE ONE TABLET BY MOUTH ONCE A DAY Non-VA Documented by: KATHERINE MATT Docume nted at: [facility] PREGABALIN 150MG CAP,ORAL Non-VA TAKE [...] Documented by: ANAYELI KIRKPATRICK Docume nted at: [facility] TERBINAFINE HCL 1% CREAM,TOP Active APPLY LIGHT LY TO AFFECTED AREA TWO TIMES A DAY FOR INFECTION Sep 23, 2020 [id number] Sep 24, 2019 ADRIEL HERNANDEZ UREA 20% CREAM,TOP Active APPLY LIGHTLY (20%) TO AFFECTED AREA TWO TIMES A DAY NEEDED TO PROMOTE HEALING,RUB IN UNTIL COMPLETELY ABSORBED*FOR TOPICAL USE ONLY* APPLY TO BOTH FEET DIRECTED. 90 Sep 25, 2020 [id number] Sep 26, 2019 ADRIEL HERNANDEZ Problems (Conditions): All historical and current Section Date Range: From patient's date of to the date document was create d. This section includes a list of Problems (Conditions) know n to VA for the patient. It includes both active and inacti ve problems (conditions). The data comes from all [place] treatment facilities. Problem Status Problem Code Date of Onset Date of Resolution Comm ent(s) Provider Source Alcohol intake above recommended sensible limits Active 875033951 PADMA LONG [facility] Allergic conjunctivitis Active 770043929 [facility]A [facility] Bilateral senile combined form cataracts of eyes Active 10593812711 9108 [facility]INN[facility]A [facility] Bilateral tinnitus Active 4780674958102 CHASTITY JEAN [facility] Coronary arteriosclerosis Active 82304758 September 08, 2014 Entered By: PADMA LONG Comment: hx of ptca to RCA several yrs. agoMa2014 Entered By: PADMA OLNG Comment: heart cath 09/01/14, neg. / previous stent to RCA,, [facility] Diabetes mellitus Active 31331551 PAMELA RAMSEY [facility] Disorder of pancreas Active 0296227 September 08, 2014 Entered By: PADMA LONG Comment: 2.5cm low density lseion in bodyMay 2014 Entered By: PADMA LONG Comment: question of communication with pancreatic ductMay 2014 Entered By: PADMA LONG Comment: favored to be cystic pancreatic cancerMay 2014 Entered By: PADMA LONG Comment: per abdominal CT 09/01/14, [facility] Dry eyes Active 262270945 [facility] Gastro-esophageal reflux disease without esophagitis ( SNOMED CT 267635300) Active 336990726 ALF [facility]UEVARA [facility] Hyperlipidemia (SNOMED CT 46155445) Active 91706047 [facility]EL[facility] RAM[facility] Lung mass Active 924241907 September 08, 2014 E ntered By: PADMA LONG Comment: 4.5 cm mass, post. segment right upper lobe.September 08, 2014 Entered By: PADMA LONG Comment: mild adenopathy in mediastinum and bilat. hilaMa2014 Entered By: PADMA LONG Comment: most likely related to lung cancerMa2014 Entered By: PADMA LONG Comment: per ct angio of chest with contrast 09/01/14,via [facility], 2014 Entered By: PADMA LONG Comment: per path report- mod. differentiated bronchogenic adenoca. 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 Active 58600152 KATHERINE MATT [facility] Obesity Active 038673423 SONG BULLOCK [facility] Obstructive sleep apnea syndrome (SNOMED CT 34374781) Active 034592 015 [facility] Pancreatic cyst Active 64552758 JAYLENE GUEVARA Jihan Cortes [facility] Papilloma of right eyelid Active [id number] [facility] Polyp of colon Active 86677595 Jan 23 Entered By: PADMA LONG Comment: c-scope 01/17/16, multiple benign colonic polypsJun 28, 2017 Entered By: PADMA LONG Comment: c-scope,06/25/17,[facility], three benign polyps- sigmoid colon, transverse colon,cecum. see path report cprs BRIANSHARRON Mila THAYER [facility] Pulmonary emphysema Active 47479926 0 BRIANA LESLYE [facility] Sensorineural hearing loss, bilateral Active 617484338 CHASTITY JEAN [facility] Snoring Active 16915835 SONG BULLOCK [facility] Type 2 diabetes mellitus without complication Active 874580347 [facility] Environmental Allergies (ICD-9-CM 477.9) Inactive 477.9 Dec 18, 2017 PADMA LONG [facility] External hemorrhoids without mention of complication (ICD-9- CM 455.3) Inactive 455.3 Dec 18, 2017 PADMA LONG [facility] Impotence of organic origin (ICD-9-CM 607.84) Inactive 607.84 Dec 18, 2017 PADMA LONG [facility] Screening for Lipoid disorders (ICD-9-CM V77.91) Inactive V77.91 Jan 18, 2007 [facility] Stye * (ICD-9-CM 373.11) Inactive 373.11 Dec 18, 201 8 Jan 18, 2007 Entered By: PADMA LONG Comment: bilat lower lids, chronic/recurrent PADMA LONG Juan M [facility] Tobacco Use Disorder, Continuous Inactive 305.1 Dec 18, 2017 Jan 18, 2007 Entered By: PADMA LONG Comment: one ppd PADMA LONG [facility] Radiology Reports: +/- 30 days of [...] the Encounter. The data comes from all [facility] facilities. Date/Time Pathology Report Provider Source Apr 03, 2019 11:11 AM LR SURGICAL PATHOLOGY REPORT : Date Spec taken: [...] 11:11) Microscopic examination is performed. DIAGNOSIS: Specimen: [id number] Spec Type: SURGICAL Abdulkadir: 04/03/19 Rec: 04/03/19-1241 PATHOLOGIC DIAGNOSIS Skin lesion, right upper cheek, biopsy: 1. Seborrheic keratosis, not involving resection margins. 2. Solar elastosis. Skin lesion, right lower mid margin, biopsy: 1. Seborrheic keratosis, with tumor at tissue edge/margin, but with benign features. LL COPIES TO: KATHERINE MATT [facility] PATHOLOGIST CODES: 61034/2 at 1235 The gross and microscopic examinations and interpretation were performed at [facility] Department of Pathology, [address] [place] [id number]. Slides and paraffin blocks are on file at [facility]. =--=--=--=--=--=--=--=--=--=--=--=--=--=--=--=--=--=--=--=--=--=--=--=--=--=-- Performing Laboratory: Surgical Pathology Report Performed By: [facility] [CLIA# [id number]] [address] [place] [id number] [address] [facility] 15 Encounter Notes: All associated encounter notes No Data Provided for This Section
--- OUTSIDE RECORDS SUMMARY | 2019-11-11 02:16 | XMS REPORT | Encounter Summary ---
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 Date/Time Encounter Type Encounter Description Reason Provider Source Mar 21, 2019 10:28 AM Outpatient Encounter ADMIN PAT ACTIVTIES (NOELLE NCT) [facility] I[facility] Encounter Template Text not used by [place] Assessments - Encounter Diagnoses No Data Provided for This Section Plan of Treatment: Future Appointments (+ 6 months) and Future Tests (+/- 45 day s) The Plan of Treatment section includes future care activities for the patient fr om all [place] treatment facilities. This section includes future appointments and fu ture orders which are active, pending or scheduled. Future Appointments This section includes appointments that were scheduled t o occur 6 months from the date of the Encounter, up to a maximum of 20 appointme nts. The data comes from all [place] treatment facilities. Appointment Date/Time Appointment Type Appointment Facili ty Name Mar 26, 2019 10:00 AM AMBULATORY - NONE [facility]UR [facility] Apr 03, 2019 10:00 AM AMBULATORY - SURGERY ARTUR BLAS [facility] Apr 14, 2019 10:00 AM AMBULATORY - SURGERY [facility] Apr 28, 2019 11:00 AM [facility] Jun 25, 2019 11:30 AM AMBULATORY - NONE [facility] Jun 25, 2019 01:15 PM AMBULATORY - MEDICINE [facility]UR [facility] Jul 23, 2019 11:00 AM AMBULATORY - NONE ARTUR BLAS [facility] Jul 25, 2019 08:00 AM AMBULATORY - NONE ARTUR BLAS [facility] Aug 07, 2019 10:30 AM AMBULATORY - MEDICINE [facility] Active, Pending, and Scheduled Orders This section [...] the Encounter. The data comes from all [place] treatment facilities. Test Date/Time Test Type Test Details Facility Name Apr 01, 2019 10:33 AM Consult Order [facility] [id number] Cons Shock Absorption Floor Layer's Choice [facility] Surgical Procedures: All associated to the encounter No Data Provided for This Section Lab Results: +/- 30 days of the encounter This section includes the Chemistry and Hematology Lab R esults on record with [place] for the patient. Radiology Reports and Pathology Report s are provided separately, in subsequent sections. Lab Results This section contains the Chemistry/Hematology Results usha t were resulted 30 days before or 30 days after the date of the Encounter. Date/Time Source Result Type Result - Unit Interpretation Reference Range Comment Mar 21, 2019 08:55 AM [facility] HEMOGLOBIN A1C Specimen Type: BLOOD No comment [...] and tobacco- related health factors from the [place] facility where the Encounter took place. Current Smoking Status This section includes the most current smoking, or tobacco -related health factor, from the [place] facility where the Encounter took place. Date/Time Current Smoking Status Comment Facility Jun 26, 2018 02:13 PM VA-TOBACCO QUIT 15 YRS OR MORE [facility] Tobacco Use History This section includes a history of the smoking, or tobacco -related health factors, that were collected on or before the date of the Encoun ter. The data comes from the [place] facility where the Encounter took place. Date/Time Smoking Status/Tobacco Use Comment Josseline avina Jun 26, 2018 02:13 PM VA-TOBACCO QUIT 15 YRS OR MORE [facility] Jun 27, 2017 01:39 PM NON-TOBACCO USER [facility] Jun 27, 2017 01:16 PM NON-TOBACCO USER [facility] Jan 06, 2015 02:07 PM NON-TOBACCO USER [facility] Nov 23, 2014 10:38 AM NON-TOBACCO USER [facility] Oct 26, 2014 10:36 AM NON-TOBACCO USER [facility] Oct 14, 2014 11:09 AM NON-TOBACCO USER [facility] LudaJuan M [facility] Advance Directives: All historical and current No Data Provided for This Section Allergies and Adverse Reactions (ADRs): All historical and current Section Date Range: From patient's date of to the date document was create d. This section includes Allergies and Adverse Reactions (ADR s) on record with [facility] for the patient. The data comes from a ll [place] treatment facilities. It does not list Allergies/ADRs that were removed or entered in error. Some allergies/ADRs may be reported in t Immunization section. Allergen Event Date Event Type Reaction(s) Severity Source [place] September 08, 2014 Propensity to adverse reactions to drug (diso rder) [facility] 15 [place] September 08, 2014 Propensity to adverse reactions to drug (diso rder) [facility] Medications: VA dispensed (-15 months) and Non-VA Documented (Obtained Outside V A) Section Date Range: 1) prescriptions processed by a VA pharmacy in the last 15 m [facility], and 2) all medications recorded in the VA medical record as "non-VA medic ations". Pharmacy terms refer to [place] pharmacy's work on prescriptions. VA patient s are advised to take their medications as instructed by their health care team. The data comes from all [place] treatment facilities. Glossary of Pharmacy Terms:Active = A prescription that can be filled at the local [place] pharmacy.Active: On Hold = An active prescription that will not be filled until pharmacy resolves the issue.Active: Susp = An active prescription that is not scheduled to be filled yet.Clinic Order = A medication received during a visit to a [place] clinic or emergency department (currently not available).Discontinued [...] may be a prescription from either the [place] or other providers that was filled outside the [place]. Or, it may be an over the [...] TEST BLOOD GLUCOSE 50 Dec 19, 2019 [id number] September 04, 2019 PAMELA RAMSEY ACCU-CHEK CHARLES PLUS (GLUCOSE) TEST STRIP Discontinued USE 1 STRIP FOR TESTING TWO TIMES PER WEEK - DIRECTED TO TEST BLOOD GLUCOSE 50 Jul 25, 2019 [id number] Nov 12, 2018 PAMELA RAMSEY ALBUTEROL SO4 90MCG/ACTUAT (CFC-F) INHL,ORAL,6.7GM Active INHALE 2 PUFFS BY ORAL INHALATION EVERY 4 HOURS NEEDED FOR BREATHING. SHAKE WELL. RINSE MOUTHPIECE FREQUENTLY TO PREVENT CLOGGING. USE NEEDED FOR SHORTNESS OF AIR/WHEEZING FOR BREATHING. SHAKE WELL. RINSE MOUTHPIECE FREQUENTLY TO PREVENT CLOGGING. USE NEEDED FOR SHORTNESS OF AIR/WHEEZING Dec 19, 2019 [id number] September 04, 2019 PAMELA RAMSEY ALCOHOL PREP PAD Active USE 1 PAD ON SKIN BIW TO CLEAN AND DISINFECT THE SKIN 200 Sep 29, 2020 [id number] Sep 30, 2019 CHUCHO,MAURICIO [facility] ALCOHOL PREP PAD Discontinued USE 1 PAD ON SKIN BI W TO CLEAN AND DISINFECT THE SKIN 200 Dec 19, 2019 [id number] Jun 06, 2019 PAMELA RAMSEY CBGUILLERMO ALCOHOL PREP PAD Discontinued USE 1 PAD ON SKIN BI W TO CLEAN AND DISINFECT THE SKIN 200 Jul 25, 2019 [id number] Nov 12, 2018 BRAULIOPAMELA [facility] ASPIRIN 25MG/DIPYRIDAMOLE 200MG CAP,SA Active T CHAPIN 1 CAPSULE BY MOUTH TWO TIMES A DAY - SWALLOW WHOLE. DO NOT CRUSH OR CHEW. FOR RECURRENT TIA/STROKE 180 Dec 19, 2019 [id number] Dec 20, 2018 BRAULIOPAMELA TOMAS [facility] ASPIRIN 25MG/DIPYRIDAMOLE 200MG CAP,SA Discontinued T CHAPIN 1 CAPSULE BY MOUTH TWO TIMES A DAY - SWALLOW WHOLE. DO NOT CRUSH OR CHEW. FOR RECURRENT TIA/STROKE 180 Feb 06, 2019 [id number] Sep 28, 2018 ZACHARY GRECO [facility] ASPIRIN 81MG TAB,EC Non- VA TAKE ONE TABLET BY MOUTH ONCE A DAY Non-VA Documented by: PADMA LONG nted at: [facility] ATORVASTATIN CA 80MG TAB Active TAKE ONE TABLET BY MOUTH AT BEDTIME FOR CHOLESTEROL - REPORT ANY UNEXPLAINED MUSCLE PAIN/WEAKNESS TO YOUR PROVIDER 90 Dec 19, 2019 [id number] September 04, 2019 PAMELA RAMSEY ATORVASTATIN CA 80MG TAB Discontinued TAKE ONE TABLET BY MOUTH AT BEDTIME FOR CHOLESTEROL - REPORT ANY UNEXPLAINED MUSCLE PAIN/WEAKNESS TO YOUR PROVIDER 90 Dec 20, 2018 [id number] Nov 12, 2018 PAMELA RAMSEY BUDESONIDE 160MCG/FORMOTEROL FUM 4.5MCG/SPRAY INHL,ORAL,10.2 GM Active INHALE 2 PUFFS BY MOUTH TWO TIMES A DAY FOR BREATHING. SHAKE WELL. RINSE MOUTH AND SPIT AFTER EACH USE. 3 Apr 24, 2020 [id number] August 22, 2019 [facility] CALCIUM/VITAMIN D TAB No n-VA TAKE BY MOUTH ONCE A DAY Non-V A Documented by: PADMA LONG nted at: [facility] CARBOXYMETHYLCELLULOSE NA 0.5% SOLN,OPH Active INSTILL ONE DROP IN BOTH EYES FOUR TIMES A DAY FOR DRY EYES 15 Feb 01, 2020 [id number] September [address] [facility] DICLOFENAC NA 1% GEL,TOP Discontinued APPLY 2 GRAMS A FFECTED AREA TWO TIMES A DAY NEEDED FOR PAIN AND INFLAMMATION. DO NOT EXCEED 16GM DAILY TO ANY AFFECTED JOINT OF LOWER EXTREMITIES. DO NOT EXCEED 8GM DAILY TO ANY AFFECTED JOINT OF UPPER EXTREMITES. DO NOT EXCEED TOTAL DOSE OF 32GM DAILY FOR ALL JOINTS. 100 Oct 31, 2018 [id number] Oct 06, 2018 ANAYELI K[facility]KPATRICK [facility] DICLOFENAC NA 1% GEL,TOP APPLY 2 GRAMS A FFECTED AREA TWO TIMES A DAY NEEDED FOR PAIN AND INFLAMMATION. DO NOT EXCEED 16GM DAILY TO ANY AFFECTED JOINT OF LOWER EXTREMITIES. DO NOT EXCEED 8GM DAILY TO ANY AFFECTED JOINT OF UPPER EXTREMITES. DO NOT EXCEED TOTAL DOSE OF 32GM DAILY FOR ALL JOINTS. 100 Jan 17, 2019 [id number] Dec 20, 2018 PAMELA RAMSEY FLUTICASONE PROPIONATE 50MCG/SPRAY SOLN,NASAL,16GM Active INSTILL 1 SPRAY IN EACH NOSTRIL ONCE A DAY SHAKE GENTLY BEFORE USE! - MUST BE USED DIRECTED FOR 3 WEEKS TO PROVIDE BENEFIT. * NO EARLY REFILLS * 1UNIT = 30DAYS AT 4 PF/DAY OR 60DAYS AT 2PF/DAY 2 Dec 19, 2019 [id number] August 26, 2019 PAMELA RAMSEY KETOTIFEN 0.025% SOLN,OPH Active INSTILL 1 DROP IN BOTH EYES TWO TIMES A DAY FOR RELIEF OF ALLERGY SYMPTOMS IN EYE(S) 10 Feb 01, 2020 [id number] September 04, 2019 [facility] LANCET,SOFTCLIX Active USE LANCET BIW FOR TESTING BL OOD GLUCOSE DIRECTED Sep 29, 2020 [id number] Sep 30, 2019 MAURICIO RANKIN LANCET,SOFTCLIX Discontinued USE LANCET BIW FO R TESTING BLOOD GLUCOSE DIRECTED Dec 19, 2019 [id number] Jun 06, 2019 PAMELA RAMSEY LANCET,SOFTCLIX Discontinued USE LANCET BIW FO R TESTING BLOOD GLUCOSE DIRECTED Jul 25, 2019 [id number] Nov 12, 2018 PAMELA RAMSEY LISINOPRIL 40MG TAB Non- VA TAKE ONE-HALF TABLET BY MOUTH EVERY MORNING Non-VA Documented by: PAMELA RAMSEY nted at: [facility] LORATADINE/PSEUDOEPHEDRINE TAB,SA Non-VA TAKE BY MOUTH No n-VA Documented by: JUAN LANG nted at: [facility] MAGNESIUM OXIDE 250MG TAB Non-VA TAKE 125 [...] ACID (REPLACES ACIPHEX) 180 Dec 19, 2019 [id number] August 26, 2019 PAMELA RAMSEY POTASSIUM GLUCONATE TAB Non-VA TAKE 595MG BY MOUTH ONCE A DAY N on-VA Documented by: PADMA LONG nted at: [facility] PRASUGREL HCL 10MG TAB N on-VA TAKE ONE TABLET BY MOUTH ONCE A DAY Non-VA Documented by: KATHERINE MATT nted at: [facility] PREGABALIN 150MG CAP,ORAL Non-VA TAKE 1 CAPSULE BY MOUTH TWO TIMES A DAY Non-VA Docume nted by: PAMELA RAMSEY nted at: [facility] PREGABALIN 150MG CAP,ORAL Non-VA TAKE 1 CAPSULE BY MOUTH TWO TIMES A DAY Non-VA Docume nted by: PAMELA RAMSEY nted at: [facility] SEMAGLUTIDE INJ,SOLN Non -VA INJECT SUBCUTANEOUSLY EVERY WEEK Non-VA Documented by: ANAYELI KIRKPATRICK nted at: [facility] TERBINAFINE HCL 1% CREAM,TOP Active APPLY LIGHT LY TO AFFECTED AREA TWO TIMES A DAY FOR INFECTION 90 Sep 23, 2020 [id number] Sep 24, 2019 [facility]Z [facility] UREA 20% CREAM,TOP Active APPLY LIGHTLY (20%) TO AFFECTED AREA TWO TIMES A DAY NEEDED TO PROMOTE HEALING,RUB IN UNTIL COMPLETELY ABSORBED*FOR TOPICAL USE ONLY* APPLY TO BOTH FEET DIRECTED. 90 Sep 25, 2020 [id number] Sep 26, 2019 ADRIEL HERNANDEZ OC Problems (Conditions): All historical and current Section Date Range: From patient's date of to the date document was create d. This section includes a list of Problems (Conditions) know n to [facility] for the patient. It includes both active and inacti ve problems (conditions). The data comes from all [place] treatment facilities. Problem Status Problem Code Date of Onset Date of Resolution Comm ent(s) Provider Source Alcohol intake above recommended sensible limits Active 866385995 PADMA LONG [facility] Allergic conjunctivitis Active 931712537 [facility] Bilateral senile combined form cataracts of eyes Active 34406949624 9108 [facility] Bilateral tinnitus Active 6663477430658 CHASTITY JEAN [facility] Coronary arteriosclerosis Active 08989709 September 08, 2014 Entered By: PADMA LONG Comment: hx of ptca to RCA several yrs. agoSeptember 08, 2014 Entered By: PADMA LONG Comment: heart cath 09/01/14, neg. / previous stent to RCA,, [place] HATCHER, JENNEY R ROBERT [facility] Diabetes mellitus Active 92946261 PAMELA RAMSEY [facility] Disorder of pancreas Active 0154087 September 08, 2014 Entered By: PADMA LONG Comment: 2.5cm low density lseion in bodyMay 2014 Entered By: PADMA LONG Comment: question of communication with pancreatic ductMay 2014 Entered By: PADMA LONG Comment: favored to be cystic pancreatic cancerMa2014 Entered By: PADMA LONG Comment: per abdominal CT 09/01/14, via [place] FRAZIER, JAY J [facility] Dry eyes Active 235064815 [place] [facility] Gastro-esophageal reflux disease without esophagitis ( SNOMED CT 387483391) Active 037894814 ALF GUEVARA [facility] Hyperlipidemia (SNOMED CT 08086331) Active 91067833 BRAULIOPAMELA [facility] Lung mass Active 020759352 September 08, 2014 E ntered By: PADMA LONG Comment: 4.5 cm mass, post. segment right upper lobe.September 08, 2014 Entered By: PADMA LONG Comment: mild adenopathy in mediastinum and bilat. hilaMay 2014 Entered By: PADMA LONG Comment: most likely related to lung cancerMa2014 Entered By: PADMA LONG Comment: per ct angio of chest with contrast 09/01/14[facility] Entered By: PADMA LONG Comment: per path report- mod. differentiated bronchogenic adenoca. 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 Active 92939131 KATHERINE MATT [facility] Obesity Active 691438748 [facility] Obstructive sleep apnea syndrome (SNOMED CT 60742196) Active 916015 015 PHILIPPE DOUGLASS [facility] Pancreatic cyst Active 63827477 WAGENERJAYLENE KIM [facility] Papilloma of right eyelid Active [id number] NEDA SHAW [facility] Polyp of colon Active 53106340 Jan 23 16 Entered By: PADMA LONG Comment: c-scope 01/17/16, multiple benign colonic polypsJun 28, 2017 Entered By: PADMA LONG Comment: c-scope,06/25/17,[facility], three benign polyps- sigmoid colon, transverse colon,cecum. see path report cprs SHARRON TORRES [facility] Pulmonary emphysema Active 97045775 0 BRIANA GAVIN [facility] Sensorineural hearing loss, bilateral Active 550447132 CHASTITY JEAN [facility] Snoring Active 13518543 S[facility] Type 2 diabetes mellitus without complication Active 869621683 [facility] Environmental Allergies (ICD-9-CM 477.9) Inactive 477.9 Dec 18, 2017 [facility] External hemorrhoids without mention of complication (ICD-9- CM 455.3) Inactive 455.3 Dec 18, 2017 PADMA LONG [facility] Impotence of organic origin (ICD-9-CM 607.84) Inactive 607.84 Dec 18, 2017 [facility] Screening for Lipoid disorders (ICD-9-CM V77.91) Inactive V77.91 Jan 18, 2007 PADMA LONG [facility] Stye * (ICD-9-CM 373.11) Inactive 373.11 Dec 18, 8 Jan 18, 2007 Entered By: PADMA LONG Comment: bilat lower lids, chronic/recurrent PADMA LONG [facility] Tobacco Use Disorder, Continuous Inactive 305.1 Dec 18, 2017 Jan 18, 2007 Entered By: PADMA LONG Comment: one ppd PADMA LONG [facility] Radiology Reports: +/- 30 days of the [...] the Encounter. The data comes from all [place] treatment facilities. Date/Time Pathology Report Provider Source Apr [...] 11:11) Microscopic examination is performed. DIAGNOSIS: Specimen: [id number] Spec Type: SURGICAL Abdulkadir: 04/03/19 Rec: 04/03/19-1241 PATHOLOGIC DIAGNOSIS Skin lesion, right upper cheek, biopsy: 1. Seborrheic keratosis, not involving resection margins. 2. Solar elastosis. Skin lesion, right lower mid margin, biopsy: 1. Seborrheic keratosis, with tumor at tissue edge/margin, but with benign features. LL COPIES TO: KATHERINE MATT [facility] PATHOLOGIST CODES: 64568/2 at 1235 The gross and microscopic examinations and interpretation were performed at [facility] Department of Pathology, [address] [place] [id number]. Slides and paraffin blocks are on file at [facility]. =--=--=--=--=--=--=--=--=--=--=--=--=--=--=--=--=--=--=--=--=--=--=--=--=--=-- Performing Laboratory: Surgical Pathology Report Performed By: [facility] [CLIA# [id number]] [address] [place] [id number] [address] [facility] 15 Encounter Notes: All associated encounter notes This section contains the clinical notes associated to the Encounter. Date/Time Encounter Note(s) Provider Source Mar 21, 2019 10:28 AM ADMINISTRATIVE NOTE: LOCAL TITLE: [place]-ADMIN [facility] STANDARD TITLE: ADMINISTRATIVE NOTE DATE OF NOTE: MAR 21, 2019@10:28 ENTRY DATE: MAR 21, 2019@10:28:57 AUTHOR: MARYURI REICH EXP COSIGNER: URGENCY: STATUS: COMPLETED Telephonic VM left to [facility] minor procedure post op biopsy for 04/10/2019. Letter sent to address on record. /gisell/ MARYURI REICH Signed: 03/21/2019 10:32 MARYURI REICH [facility]
--- OUTSIDE RECORDS SUMMARY | 2019-11-11 02:17 | XMS REPORT | Encounter Summary ---
Author [facility] Address [address] [place] [address] Phone Unavailable Care Team Providers Care Computer Engineering Technician Name Role Phone ADRIEL HERNANDEZ PCP Unavailable Insurance Providers: All historical and current No Data Provided for This Section Selected Encounter This section includes the information on record at [place] for the Encounter. Date/Time Encounter Type Encounter Description Reason Provider Source Sep 22, 2019 03:55 PM Outpatient Encounter ADMIN PAT ACTIVTIES (MASNO NCT) [facility] IHE Encounter Template Text not used by [...] 23, 2019 11:15 AM AMBULATORY - NONE [facility] Sep 23, 2019 11:30 AM AMBULATORY - MEDICINE [facility] Oct 07, 2019 09:15 AM [facility] Dec 31, 2019 11:00 AM AMBULATORY - NONE [facility] Dec 31, 2019 01:15 PM [facility]UL[facility]ORY - MEDICINE [facility] Jan 01, 2020 09:00 AM AMBULATORY - MEDICINE [facility] [place] [place] Jan 27, 2020 01:00 PM AMBULATORY - MEDICINE [facility] Surgical Procedures: All associated to the encounter No Data Provided for This Section Lab Results: +/- 30 days of the encounter This section includes the Chemistry and Hematology Lab R esults on record with [facility] for the patient. Radiology Reports and Pathology Report s are provided separately, in subsequent sections. Lab Results This section contains the Chemistry/Hematology Results usha t were resulted 30 days before or 30 days after the date of the Encounter. Date/Time Source Result Type Result - Unit Interpretation Reference Range Comment Sep 23, 2019 10:56 AM [facility] HEMOGLOBIN A1C Specimen Type: BLOOD No comment entered. HEMOGLOBIN A1C 6.7 % H 4.0-6.0 Sep 23, 2019 10:56 AM [facility] PROSTATIC SPECIFIC ANTIGEN (TOTAL) Specimen Type: SERUM No comment entered. PROSTATIC SPECIFIC ANTIGEN(TOTAL) 1.1 ng/mL 0-4 Sep 23, 2019 10:56 AM [facility] TSH Specimen Type: SERUM No comment entered. TSH 0.67 uIU/mL 0.47-5.00 Sep 23, 2019 10:56 AM [facility] LIPID PROFILE(HDL,TRIG,CHO L,LDL) Specimen Type: PLASMA Comment: For eGFR: eGFR results >60 are imprecise. Many variables affect the calculated result. Interpretation of eGFR results >60 must be monitored over time. CHOLESTEROL 137 mg/dL 0-200 TRIGS 167 mg/dL H 0-150 HDL-CHOLESTEROL 36 mg/dL L >40 LDL (CALC) 68 mg/dL 0-99.9 Sep 23, 2019 10:56 AM [facility] URINALYSIS Specimen Type: URINE No comment entered. URINE COLOR Yellow SPECIFIC GRAVITY 1.009 1.005-1.030 UROBILINOGEN Negative mg/dL 0.1-1.0 URINE BILIRUBIN Negative Negative URINE KETONES Negative mg/dl Negative URINE GLUCOSE Negative mg/dL Negative URINE PROTEIN Negative mg/dl Negative-Tr zainab URINE PH 6.0 5-8 APPEARANCE,URINE Clear Clear URINE BLOOD Negative Negative URINE NITRITE Negative Negative LEUKOCYTE ESTERASE Negative Negative Sep 23, 2019 10:56 AM [facility] MICROALBUMIN (ANANT,WI) RANDO M URINE Specimen Type: URINE Comment: Microalbumin is below the linearity of the instrument, unable to calculate the albumin/creatinine ratio. *MICROALBUMIN,RAND < 5 ug/mL *MICROALB/CREAT canc mcg/mg cr *UR PROTEIN < 6.8 mg/dL *UR CREATININE 37.4 mg/dL Not Available Sep 23, 2019 10:56 AM [facility] COMPREHENSIVE METABOLIC PA KELLE Specimen Type: PLASMA Comment: For eGFR: eGFR results >60 are imprecise. Many variables affect the calculated result. Interpretation of eGFR results >60 must be monitored over time. *CREATININE 1.00 mg/dL 0.7-1.3 UREA NITROGEN mg/dL 17 mg/dL 9-25 GLUCOSE 98 mg/dL 72-99 SODIUM 138 mEq/L 136-145 POTASSIUM 4.5 mEq/L 3.5-5.0 CALCIUM (mg/dL) 9.4 mg/dL 8.4-10.4 PROTEIN,TOTAL 7.3 g/dL 6.0-8.6 ALBUMIN 4.1 g/dl 3.4-5.0 TOTAL BILIRUBIN 0.3 mg/dL 0.2-1.2 ASPARTATE TRANSAMINASE 19 U/L 5-34 ALANINE AMINOTRANSFERASE 16 U/L 8-40 ANION GAP 8.9 8-16 CHLORIDE 104 mEq/L 98-107 CO2 25.1 mEq/L 22-31 ALKALINE PHOSPHATASE 154 U/L H 40-150 EGFR >60 Sep 23, 2019 10:56 AM [facility] CBC & DIFF Specimen Type: BLOOD No comment entered. WBC 9.2 K/cmm 3.60-11.20 RBC 5.45 M/ul 4.1-5.7 HGB 15.1 g/dl 13.1-16.8 HCT 46.0 % 38.2-48.4 MCV 84.4 fl 80.1-98.5 MCH 27.7 pg 27.0-34.0 MCHC 32.8 g/dl L 33.0-36.0 PLATELET COUNT 260 K/cmm 150-400 MPV 11.4 fl H 7.5-11.2 RDW 16.2 % H 11.8-15.1 LYMPHOCYTES, AUTO% 27.8 % NEUTROPHILS, AUTO % 57.4 % MONOCYTES, AUTO% 9.2 % MONOCYTES, ABSOLUTE 0.9 K/cmm H 0.19-0.80 NEUTROPHILS, ABSOLUTE 5.3 K/cmm 2.10-8.0 0 EOSINOPHILS, ABSOLUTE 0.4 K/cmm 0.00-0.6 0 BASOPHILS, ABSOLUTE 0.1 K/cmm 0.00-0.20 EOSINOPHILS, AUTO% 4.4 % BASOPHILS, AUTO% 0.9 % LYMPHOCYTES, ABSOLUTE 2.6 K/cmm 0.77-4.5 0 IMMATURE GRANS, ABSOLUTE 0.03 K/cmm 0.00 -0.05 IMMATURE GRANS, AUTO % 0.3 % Vital Signs: All taken on the encounter date No Data Provided for This Section Immunizations: All administered on the encounter date No Data Provided for This Section Social History: Smoking Status (Most current) and Tobacco Use (All prior to enco unter date) This section includes the most current, and the historical, smoking and tobacco- related health factors from the [place] facility where the Encounter took place. Current Smoking Status This section includes the most current smoking, or tobacco -related health factor, from the [place] facility where the Encounter took place. Date/Time Current Smoking Status Comment Facility Nov 23, 2017 09:51 AM TOBACCO USER OFFERED MEDS [facility] Tobacco Use History This section includes a history of the smoking, or tobacco -related health factors, that were collected on or before the date of the Encoun ter. The data comes from the [place] facility where the Encounter took place. Date/Time Smoking Status/Tobacco Use Comment [facility] it Nov 23, 2017 09:51 AM CURRENT TOBACCO USER (READY TO QUIT) [facility] Nov 23, 2017 09:51 AM TOBACCO CESSATION REFERRAL DECLINED [facility] Nov 23, 2017 09:51 AM TOBACCO USER OFFERED MEDS [facility] Dec 18, 2016 08:55 AM NON-TOBACCO USER [facility] Dec 01, 2005 08:32 AM CURRENT NON-SMOKER [facility] Dec 01, 2005 08:32 AM LIFETIME NON-SMOKER [facility] Dec 01, 2005 08:32 AM LIFETIME NON-TOBACCO USER [facility] Dec 01, 2005 08:32 AM NON-SMOKER [facility] Dec 01, 2005 08:32 AM NON-TOBACCO USER [facility] Advance Directives: All historical and current No [...] to adverse reactions to drug (diso rder) [facility], VISN 15 PLAVIX September 08, 2014 Propensity to adverse reactions to drug (diso rder) [facility], VISN 15 Medications: [facility] dispensed (-15 months) and Non-VA Documented (Obtained Outside V A) Section Date Range: 1) prescriptions processed by a [facility] pharmacy in the last 15 m ont, and 2) all medications recorded in the [...] TEST BLOOD GLUCOSE 50 Dec 19, 2019 [id number] September 04, 2019 PAMELA RAMSEY CBGUILLERMO ACCU-CHEK CHARLES PLUS (GLUCOSE) TEST STRIP Discontinued USE 1 STRIP FOR TESTING TWO TIMES PER WEEK - DIRECTED TO TEST BLOOD GLUCOSE 50 Jul 25, 2019 [id number] Nov 12, 2018 PAMELA RAMSEY CBGUILLERMO ALBUTEROL SO4 90MCG/ACTUAT (CFC-F) INHL,ORAL,6.7GM Active INHALE 2 PUFFS BY ORAL INHALATION EVERY 4 HOURS NEEDED FOR BREATHING. SHAKE WELL. RINSE MOUTHPIECE FREQUENTLY TO PREVENT CLOGGING. USE NEEDED FOR SHORTNESS OF AIR/WHEEZING FOR BREATHING. SHAKE WELL. RINSE MOUTHPIECE FREQUENTLY TO PREVENT CLOGGING. USE NEEDED FOR SHORTNESS OF AIR/WHEEZING 1 Dec 19, 2019 [id number] September 04, 2019 PAMELA RAMSEY CB ALCOHOL PREP PAD Active USE 1 PAD ON SKIN BIW TO CLEAN AND DISINFECT THE SKIN 200 Sep 29, 2020 [id number] Sep 30, 2019 [facility]IO [facility] ALCOHOL PREP PAD Discontinued USE 1 PAD ON SKIN BI W TO CLEAN AND DISINFECT THE SKIN 200 Dec 19, 2019 [id number] Jun 06, 2019 [facility] ALCOHOL PREP PAD Discontinued USE 1 PAD ON SKIN BI W TO CLEAN AND DISINFECT THE SKIN 200 Jul 25, 2019 [id number] Nov 12, 2018 [facility] ASPIRIN 25MG/DIPYRIDAMOLE 200MG CAP,SA Active T CHAPIN 1 CAPSULE BY MOUTH TWO TIMES A DAY - SWALLOW WHOLE. DO NOT CRUSH OR CHEW. FOR RECURRENT TIA/STROKE 180 Dec 19, 2019 [id number] Dec 20, 2018 [facility] ASPIRIN 25MG/DIPYRIDAMOLE 200MG CAP,SA Discontinued T CHAPIN 1 CAPSULE BY MOUTH TWO TIMES A DAY - SWALLOW WHOLE. DO NOT CRUSH OR CHEW. FOR RECURRENT TIA/STROKE 180 Feb 06, 2019 [id number] Sep 28, 2018 ZACHARY GRECOE [facility] ASPIRIN 81MG TAB,EC Non- [facility] TAKE ONE TABLET BY MOUTH ONCE A DAY Non-VA Documented by: PADMA LONGed at: [facility] ATORVASTATIN CA 80MG TAB Active TAKE ONE TABLET BY MOUTH AT BEDTIME FOR CHOLESTEROL - REPORT ANY UNEXPLAINED MUSCLE PAIN/WEAKNESS TO YOUR PROVIDER 90 Dec 19, 2019 [id number] September 04, 2019 PAMELA RAMSEY ATORVASTATIN CA 80MG TAB Discontinued TAKE ONE TABLET BY MOUTH AT BEDTIME FOR CHOLESTEROL - REPORT ANY UNEXPLAINED MUSCLE PAIN/WEAKNESS TO YOUR PROVIDER 90 Dec 20, 2018 [id number] Nov 12, 2018 PAMELA RAMSEY BUDESONIDE 160MCG/FORMOTEROL FUM 4.5MCG/SPRAY INHL,ORAL,10.2 GM Active INHALE 2 PUFFS BY MOUTH TWO TIMES A DAY FOR BREATHING. SHAKE WELL. RINSE MOUTH AND SPIT AFTER EACH USE. 3 Apr 24, 2020 [id number] August 22, 2019 [facility] CALCIUM/VITAMIN D TAB No n-VA TAKE BY MOUTH ONCE A DAY Non-V A Documented by: PADMA LONG nted at: [facility] CARBOXYMETHYLCELLULOSE NA 0.5% SOLN,OPH Active INSTILL ONE DROP IN BOTH EYES FOUR TIMES A DAY FOR DRY EYES 15 Feb 01, 2020 [id number] September 03 0 [facility] [...] FOR ALL JOINTS. 100 Oct 31, 2018 [id number] Oct 06, [address] [facility] DICLOFENAC NA 1% GEL,TOP APPLY 2 GRAMS A FFECTED AREA TWO TIMES A DAY NEEDED FOR PAIN AND INFLAMMATION. DO NOT EXCEED 16GM DAILY TO ANY AFFECTED JOINT OF LOWER EXTREMITIES. DO NOT EXCEED 8GM DAILY TO ANY AFFECTED JOINT OF UPPER EXTREMITES. DO NOT EXCEED TOTAL DOSE OF 32GM DAILY FOR ALL JOINTS. 100 Jan 17, 2019 [id number] Dec 20, 2018 PAMELA RAMSEY FLUTICASONE PROPIONATE 50MCG/SPRAY SOLN,NASAL,16GM Active INSTILL 1 SPRAY IN EACH NOSTRIL ONCE A DAY SHAKE GENTLY BEFORE USE! - MUST BE USED DIRECTED FOR 3 WEEKS TO PROVIDE BENEFIT. * NO EARLY REFILLS * 1UNIT = 30DAYS AT 4 PF/DAY OR 60DAYS AT 2PF/DAY 2 Dec 19, 2019 [id number] August 26, 2019 PAMELA RAMSEY KETOTIFEN 0.025% SOLN,OPH Active INSTILL 1 DROP IN BOTH EYES TWO TIMES A DAY FOR RELIEF OF ALLERGY SYMPTOMS IN EYE(S) Feb 01, 2020 [id number] September 04, 2019 [facility] LANCET,SOFTCLIX Active USE LANCET BIW FOR TESTING BL OOD GLUCOSE DIRECTED 100 Sep 29, 2020 [id number] Sep 30, 2019 [facility] LANCET,SOFTCLIX Discontinued USE LANCET BIW FO R TESTING BLOOD GLUCOSE DIRECTED 100 Dec 19, 2019 [id number] Jun 06, 2019 PAMELA RAMSEY LANCET,SOFTCLIX Discontinued USE LANCET BIW FO R TESTING BLOOD GLUCOSE DIRECTED Jul 25, 2019 [id number] Nov 12, 2018 PAMELA RAMSEY LISINOPRIL 40MG TAB Non- VA TAKE ONE-HALF TABLET BY MOUTH EVERY MORNING Non-VA Documented by: PAMELA RAMSEY nted at: [facility] LORATADINE/PSEUDOEPHEDRINE TAB,SA Non-VA TAKE BY MOUTH No n-VA Documented by: JUAN LANG nted at: [facility] MAGNESIUM OXIDE 250MG TAB Non-VA TAKE 125 TABLETS BY MOUTH ONCE A DAY Non-VA Documented by: PADMA LONG nted at: [facility] MONTELUKAST NA 10MG TAB Non-VA TAKE ONE TABLET BY MOUTH EVERY EVENING Non-VA Documented by: PAMELA RAMSEY nted at: [facility] OMEPRAZOLE 20MG CAP,EC Active TAKE 2 CAPSULES B Y MOUTH BEFORE BREAKFAST 30 MINUTES BEFORE EATING TO LOWER STOMACH ACID (REPLACES ACIPHEX) 180 Dec 19, 2019 [id number] August 26, 2019 PAMELA RAMSEY POTASSIUM GLUCONATE [...] Documented by: ANAYELI KIRKPATRICK Docume nted at: [facility] TERBINAFINE HCL 1% CREAM,TOP Active APPLY LIGHT LY TO AFFECTED AREA TWO TIMES A DAY FOR INFECTION 90 Sep 23, 2020 [id number] Sep 24, 2019 ADRIEL HERNANDEZ UREA 20% CREAM,TOP Active APPLY LIGHTLY (20%) TO AFFECTED AREA TWO TIMES A DAY NEEDED TO PROMOTE HEALING,RUB IN UNTIL COMPLETELY ABSORBED*FOR TOPICAL USE ONLY* APPLY TO BOTH FEET DIRECTED. 90 Sep 25, 2020 [id number] Sep 26, 2019 ADRIEL HERNANDEZ Problems (Conditions): [...] Alcohol intake above recommended sensible limits Active [id number] PADMA LONG [facility] Allergic conjunctivitis Active 848707834 [place] [facility] Bilateral senile combined form cataracts of eyes Active [id number] 9108 NEDA SHAW [facility] Bilateral tinnitus Active [id number] CHASTITY JEAN [facility] Coronary arteriosclerosis Active [id number] September 08, 2014 Entered By: PADMA LONG Comment: hx of ptca to RCA several yrs. agoSeptember 08, 2014 Entered By: PADMA LONG Comment: heart cath 09/01/14, neg. / previous stent to RCA,, via abida meneses ks HATCHER, JENNEY R [facility] Diabetes mellitus Active 93860948 PAMELA RAMSEY [facility] Disorder of pancreas Active 7912693 September 08, 2014 Entered By: PADMA LONG Comment: 2.5cm low density lseion in bodyMay 2014 Entered By: PADMA LONG Comment: question of communication with pancreatic ductMay 2014 Entered By: PADMA LONG Comment: favored to be cystic pancreatic cancerMa2014 Entered By: PADMA LONG Comment: per abdominal CT 09/01/14, via abida meneses ks FRAZIER, JAY J [facility] Dry eyes Active 507520800 [facility] SH[facility] Gastro-esophageal reflux disease without esophagitis ( SNOMED CT 125887711) Active 769027431 ALF GUEVARA [facility] Hyperlipidemia (SNOMED CT 08098149) Active 21795594 BRAULIOPAMELA TOMAS [facility] Lung mass Active [id number] September 08, 2014 E ntered By: PADMA [...] report- mod. differentiated bronchogenic adenoca. 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, three benign polyps- sigmoid colon, transverse colon,cecum. see path report cprs SHARRON TORRES [facility] Pulmonary emphysema Active 84953675 0 BRIANA GAVIN [facility] Sensorineural hearing loss, bilateral Active 892961557 CHASTITY JEAN [facility] Snoring Active 95422912 SONG BULLOCK [facility] Type 2 diabetes mellitus without complication Active 351383973 NED[facility] SHAW [facility] Environmental Allergies (ICD-9-CM 477.9) Inactive 477.9 Dec 18, 2017 PADMA LONG [facility] External hemorrhoids without mention of complication (ICD-9- CM 455.3) Inactive 455.3 Dec 18, 2017 PADMA LONG [facility] Impotence of organic origin (ICD-9-CM 607.84) Inactive 607.84 Dec 18, 2017 PADMA LONG [facility] Screening for Lipoid disorders (ICD-9-CM V77.91) Inactive V77.91 Jan 18, 2007 [facility] Stye * (ICD-9-CM 373.11) Inactive 373.11 Dec 18, 201 8 Jan 18, 2007 Entered By: PADMA LONG Comment: bilat lower lids, chronic/recurrent [facility] Tobacco Use Disorder, Continuous Inactive 305.1 Dec 18, 2017 Jan 18, 2007 Entered By: PADMA LONG Comment: one ppd PADMA LONG [facility] Radiology Reports: +/- 30 days of the encounter No Data Provided for This Section Pathology Reports: +/- 30 days of the encounter No Data Provided for This Section Encounter Notes: All associated encounter notes This section contains the clinical notes associated to the Encounter. Date/Time Encounter Note(s) Provider Source Sep 22, 2019 03:55 PM ADMINISTRATIVE NOTE: LOCAL TITLE: [place]-ADMIN MSA STANDARD TITLE: ADMINISTRATIVE NOTE DATE OF NOTE: SEP 22, 2019@15:55 ENTRY DATE: SEP 22, 2019@15:55:50 AUTHOR: CHERRIE JONES EXP COSIGNER: URGENCY: STATUS: COMPLETED MSA Administrative Note: Patient was contacted prior to his/her upcoming appointment: Unable to reach patient by phone Administrative notes: Unable to screen for COVID19. /es/ CHERRIE JONES MSA Signed: 09/22/2019 15:56 CHERRIE JONES OC
--- OUTSIDE RECORDS SUMMARY | 2019-11-11 02:17 | XMS REPORT | Encounter Summary ---
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 Date/Time Encounter Type Encounter Description Reason Provider Source Oct 08, 2019 10:07 AM Outpatient Encounter ADMIN PAT ACTIVTIES ([place] NCT) [facility] IHE Encounter Template Text not used by [place] Assessments - Encounter Diagnoses No Data Provided for This Section Plan of Treatment: Future Appointments (+ 6 months) and Future Tests (+/- 45 day s) The Plan of Treatment section includes future care activities for the patient fr om all [place] treatment facilities. This section includes future appointments and fu ture orders which are active, pending or scheduled. Future Appointments This section includes appointments that were scheduled t o occur 6 months from the date of the Encounter, up to a maximum of 20 appointme nts. The data comes from all [place] treatment facilities. Appointment Date/Time Appointment Type Appointment Facili ty Name Dec 31, 2019 11:00 AM AMBULATORY - NONE [facility] Dec 31, 2019 01:15 PM AMBULATORY - MEDICINE [facility] Jan 01, 2020 09:00 AM AMBULATORY - MEDICINE [facility] Jan 27, 2020 01:00 PM AMBULATORY - MEDICINE MARLENE KEYS [facility] Mar 31, 2020 09:30 AM AMBULATORY - MEDICINE [facility] Mar 31, 2020 09:31 AM AMBULATORY - MEDICINE [facility] Mar 31, 2020 10:00 AM AMBULATORY - MEDICINE [facility] Mar 31, 2020 10:01 AM AMBULATORY - MEDICINE [facility] Apr 07, 2020 08:00 AM AMBULATORY - NONE [facility] Surgical Procedures: All associated to the [...] Range Comment Sep 23, 2019 10:[address] [facility] HEMOGLOBIN A1C Specimen Type: BLOOD No [...] Negative Negative Sep 23, 2019 10:56 AM [facility] MICROALBUMIN (ANANT,WI) RANDO M URINE Specimen Type: URINE Comment: Microalbumin is below the linearity of the instrument, unable to calculate the albumin/creatinine ratio. *MICROALBUMIN,RAND < 5 ug/mL *MICROALB/CREAT canc mcg/mg cr *UR PROTEIN < 6.8 mg/dL *UR CREATININE 37.4 mg/dL Not Available Sep 23, 2019 10:56 AM [facility] COMPREHENSIVE METABOLIC PA KELLE Specimen Type: [...] EGFR >60 Sep 23, 2019 10:56 AM [facility] CBC & DIFF Specimen Type: BLOOD No [...] and tobacco- related health factors from the [place] facility where the Encounter took place. Current Smoking Status This section includes the most current smoking, or tobacco -related health factor, from the [place] facility where the Encounter took place. Date/Time Current Smoking Status Comment Facility Nov 23, 2017 09:51 AM TOBACCO USER OFFERED MEDS [facility] Tobacco Use History This section includes a history of the smoking, or tobacco -related health factors, that were collected on or before the date of the Encoun ter. The data comes from the [place] facility where the Encounter took place. Date/Time Smoking Status/Tobacco Use Comment [facility] Nov 23, 2017 09:51 AM CURRENT TOBACCO USER (READY TO QUIT) [facility] Nov 23, 2017 09:51 AM TOBACCO CESSATION REFERRAL DECLINED [facility] Nov 23, 2017 09:51 AM TOBACCO USER OFFERED [facility]S [facility] Dec 18, 2016 08:55 AM NON-TOBACCO USER [facility] Dec 01, 2005 08:32 AM CURRENT NON-SMOKER [facility] Dec 01, 2005 08:32 AM LIFETIME NON-SMOKER [facility] Dec 01, 2005 08:32 AM LIFETIME NON-TOBACCO USER [facility] Dec 01, 2005 08:32 AM NON-SMOKER [facility] Dec 01, 2005 08:32 AM NON-TOBACCO USER [facility] Advance Directives: All historical and current No Data Provided for This Section Allergies and Adverse Reactions (ADRs): All historical and current Section Date Range: From patient's date of to the date document was create d. This section includes Allergies and Adverse Reactions (ADR s) on record with [facility] for the patient. The data comes from a ll [place] treatment facilities. It does not list Allergies/ADRs that were removed or entered in error. Some allergies/ADRs may be reported in t he Immunization section. Allergen Event Date Event Type Reaction(s) Severity Source [place] September 08, 2014 Propensity to adverse reactions to drug (diso rder) [facility] 15 [place] September 08, 2014 Propensity to adverse reactions to drug (diso rder) [facility] 15 Medications: VA dispensed (-15 months) and Non-VA Documented (Obtained Outside A) Section Date Range: 1) prescriptions processed by a VA pharmacy in the last 15 m [facility], and 2) all medications recorded in the [place] medical record as "non-VA medic ations". Pharmacy terms refer to [place] pharmacy's work on prescriptions. [facility] patient s are advised to take their medications as instructed by their health care team. The data comes from all [place] treatment facilities. Glossary of Pharmacy Terms:Active = A prescription that can be filled at the local [place] pharmacy.Active: On Hold = An active prescription that will not be filled until pharmacy resolves the issue.Active: Susp = An active prescription that is not scheduled to be filled yet.Clinic Order = A medication received during a visit to a [place] clinic or emergency department (currently not available).Discontinued [...] TEST BLOOD GLUCOSE 50 Dec 19, 2019 [id number] September 04, 2019 PAMELA RAMSEY ACCU-CHEK CHARLES PLUS (GLUCOSE) TEST STRIP Discontinued USE 1 STRIP FOR TESTING TWO TIMES PER WEEK - DIRECTED TO TEST BLOOD GLUCOSE 50 Jul 25, 2019 [id number] Nov 12, 2018 PAMELA RAMSEY GUILLERMO ALBUTEROL SO4 90MCG/ACTUAT (CFC-F) INHL,ORAL,6.7GM Active INHALE 2 PUFFS BY ORAL INHALATION EVERY 4 HOURS NEEDED FOR BREATHING. SHAKE WELL. RINSE MOUTHPIECE FREQUENTLY TO PREVENT CLOGGING. USE NEEDED FOR SHORTNESS OF AIR/WHEEZING FOR BREATHING. SHAKE WELL. RINSE MOUTHPIECE FREQUENTLY TO PREVENT CLOGGING. USE NEEDED FOR SHORTNESS OF AIR/WHEEZING 1 Dec 19, 2019 [id number] September 04, 2019 [facility] ALCOHOL PREP PAD Active USE 1 PAD ON SKIN BIW TO CLEAN AND DISINFECT THE SKIN 200 Sep 29, 2020 [id number] Sep 30, 2019 MAURICIO RANKIN [facility] ALCOHOL PREP PAD Discontinued USE 1 PAD ON SKIN BI W TO CLEAN AND DISINFECT THE SKIN 200 Dec 19, 2019 [id number] Jun 06, 2019 PAMELA RAMSEY [facility] ALCOHOL PREP PAD Discontinued USE 1 PAD ON SKIN BI W TO CLEAN AND DISINFECT THE SKIN 200 Jul 25, 2019 [id number] Nov 12, 2018 PAMELA RAMSEY [facility] ASPIRIN 25MG/DIPYRIDAMOLE 200MG CAP,SA Active T CHAPIN 1 CAPSULE BY MOUTH TWO TIMES A DAY - SWALLOW WHOLE. DO NOT CRUSH OR CHEW. FOR RECURRENT TIA/STROKE 180 Dec 19, 2019 [id number] Dec 20, 2018 PAMELA RAMSEY GUILLERMO ASPIRIN 25MG/DIPYRIDAMOLE 200MG CAP,SA Discontinued T CHAPIN 1 CAPSULE BY MOUTH TWO TIMES A DAY - SWALLOW WHOLE. DO NOT CRUSH OR CHEW. FOR RECURRENT TIA/STROKE 180 Feb 06, 2019 [id number] Sep 28, 2018 ZACHARY GRECO V [facility] ASPIRIN 81MG TAB,EC Non- [facility] TAKE ONE TABLET BY MOUTH ONCE A DAY Non-VA Documented by: PADMA LONG nted at: [facility] ATORVASTATIN CA 80MG TAB Active TAKE ONE TABLET BY MOUTH AT BEDTIME FOR CHOLESTEROL - REPORT ANY UNEXPLAINED MUSCLE PAIN/WEAKNESS TO YOUR PROVIDER 90 Dec 19, 2019 [id number] September 04, 2019 PAMELA RAMSEY ATORVASTATIN CA 80MG TAB Discontinued TAKE ONE TABLET BY MOUTH AT BEDTIME FOR CHOLESTEROL - REPORT ANY UNEXPLAINED MUSCLE PAIN/WEAKNESS TO YOUR PROVIDER 90 Dec 20, 2018 [id number] Nov 12, 2018 PAMELA RAMSEY BUDESONIDE 160MCG/FORMOTEROL FUM 4.5MCG/SPRAY INHL,ORAL,10.2 GM Active INHALE 2 PUFFS BY MOUTH TWO TIMES A DAY FOR BREATHING. SHAKE WELL. RINSE MOUTH AND SPIT AFTER EACH USE. 3 Apr 24, 2020 [id number] August 22, 2019 LISSA OATES [facility] CALCIUM/VITAMIN D TAB No n-VA TAKE BY MOUTH ONCE A DAY Non-V A Documented by: PADMA LONG nted at: [facility] CARBOXYMETHYLCELLULOSE NA 0.5% SOLN,OPH Active INSTILL ONE DROP IN BOTH EYES FOUR TIMES A DAY FOR DRY EYES Feb 01, 2020 [id number] September 03 [facility] DICLOFENAC NA 1% GEL,TOP Discontinued APPLY 2 GRAMS A FFECTED AREA TWO TIMES A DAY NEEDED FOR PAIN AND INFLAMMATION. DO NOT EXCEED 16GM DAILY TO ANY AFFECTED JOINT OF LOWER EXTREMITIES. DO NOT EXCEED 8GM DAILY TO ANY AFFECTED JOINT OF UPPER EXTREMITES. DO NOT EXCEED TOTAL DOSE OF 32GM DAILY FOR ALL JOINTS. 100 Oct 31, 2018 [id number] Oct 06, 2018 ANAYELI KIRKPATRICK [facility] DICLOFENAC NA 1% GEL,TOP APPLY 2 GRAMS A FFECTED AREA TWO TIMES A DAY NEEDED FOR PAIN AND INFLAMMATION. DO NOT EXCEED 16GM DAILY TO ANY AFFECTED JOINT OF LOWER EXTREMITIES. DO NOT EXCEED 8GM DAILY TO ANY AFFECTED JOINT OF UPPER EXTREMITES. DO NOT EXCEED TOTAL DOSE OF 32GM DAILY FOR ALL JOINTS. 100 Jan 17, 2019 [id number] Dec 20, 2018 PAMELA RAMSEY FLUTICASONE PROPIONATE 50MCG/SPRAY SOLN,NASAL,16GM Active INSTILL 1 SPRAY IN EACH NOSTRIL ONCE A DAY SHAKE GENTLY BEFORE USE! - MUST BE USED DIRECTED FOR 3 WEEKS TO PROVIDE BENEFIT. * NO EARLY REFILLS * 1UNIT = 30DAYS AT 4 PF/DAY OR 60DAYS AT 2PF/DAY 2 Dec 19, 2019 [id number] August 26, 2019 PAMELA RAMSEY KETOTIFEN 0.025% SOLN,OPH Active INSTILL 1 DROP IN BOTH EYES TWO TIMES A DAY FOR RELIEF OF ALLERGY SYMPTOMS IN EYE(S) Feb 01, 2020 [id number] September 04, 2019 [facility] LANCET,SOFTCLIX Active USE LANCET BIW FOR TESTING BL OOD GLUCOSE DIRECTED 100 Sep 29, 2020 [id number] Sep 30, 2019 [facility] LANCET,SOFTCLIX Discontinued USE LANCET BIW FO R TESTING BLOOD GLUCOSE DIRECTED 100 Dec 19, 2019 [id number] Jun 06, 2019 [facility] LANCET,SOFTCLIX Discontinued USE LANCET BIW FO R TESTING BLOOD GLUCOSE DIRECTED 100 Jul 25, 2019 [id number] Nov 12, 2018 PAMELA RAMSEY LISINOPRIL 40MG TAB Non- [facility] TAKE ONE-HALF TABLET BY MOUTH EVERY MORNING Non-VA Documented by: PAMELA RAMSEY nted at: [facility] LORATADINE/PSEUDOEPHEDRINE TAB,SA Non-VA TAKE BY MOUTH No n-VA Documented by: JUAN LANG nted at: [facility] MAGNESIUM OXIDE 250MG TAB Non-VA TAKE 125 TABLETS BY MOUTH ONCE A DAY Non-VA Documented by: PADMA LONGume nted at: [facility] MONTELUKAST NA 10MG TAB Non-VA TAKE ONE TABLET BY MOUTH EVERY EVENING Non-VA Documented by: PAMELA RAMSEY nted at: [facility] OMEPRAZOLE 20MG CAP,EC Active TAKE 2 CAPSULES B Y MOUTH BEFORE BREAKFAST 30 MINUTES BEFORE EATING TO LOWER STOMACH ACID (REPLACES ACIPHEX) 180 Dec 19, 2019 [id number] August 26, 2019 PAMELA RAMSEY POTASSIUM GLUCONATE TAB Non-VA TAKE 595MG BY MOUTH ONCE A DAY N on-VA Documented by: PADMA LONG Docume nted at: [facility] PRASUGREL HCL 10MG TAB N on-VA TAKE ONE TABLET BY MOUTH ONCE A DAY Non-VA Documented by: KATHERINE MATT Docume nted at: [facility] PREGABALIN 150MG CAP,ORAL Non-VA TAKE 1 CAPSULE BY MOUTH TWO TIMES A DAY Non-VA Docume nted by: PAMELA RAMSEY Docume nted at: [facility] PREGABALIN 150MG CAP,ORAL Non-VA TAKE 1 CAPSULE BY MOUTH TWO TIMES A DAY Non-VA Docume nted by: PAMELA RAMSEY Docume nted at: [facility] SEMAGLUTIDE INJ,SOLN Non -VA INJECT SUBCUTANEOUSLY EVERY WEEK Non-VA Documented by: ANAYELI KIRKPATRICK Docume nted at: [facility] TERBINAFINE HCL 1% CREAM,TOP Active APPLY LIGHT LY TO AFFECTED AREA TWO TIMES A DAY FOR INFECTION Sep 23, 2020 [id number] Sep 24, 2019 ADRIEL HERNANDEZ UREA 20% CREAM,TOP Active APPLY LIGHTLY (20%) TO AFFECTED AREA TWO TIMES A DAY NEEDED TO PROMOTE HEALING,RUB IN UNTIL COMPLETELY ABSORBED*FOR TOPICAL USE ONLY* APPLY TO BOTH FEET DIRECTED. Sep 25, 2020 [id number] Sep 26, 2019 ADRIEL HERNANDEZ Problems (Conditions): All historical and current Section Date Range: From patient's date of to the date document was create d. This section includes a list of Problems (Conditions) know n to [facility] for the patient. It includes both active and inacti ve problems (conditions). The data comes from all [place] treatment facilities. Problem Status Problem Code Date of Onset Date of Resolution Comm ent(s) Provider Source Alcohol intake above recommended sensible limits Active 468233326 [facility] Allergic conjunctivitis Active 480675422 [facility] Bilateral senile combined form cataracts of eyes Active 54201768424 9108 [facility] Bilateral tinnitus Active [id number] CHASTITY JEAN [facility] Coronary arteriosclerosis Active 57371954 September 08, 2014 Entered By: PADMA LONG Comment: hx of ptca to RCA several yrs. agoSeptember 08, 2014 Entered By: PADMA LONG Comment: heart cath 09/01/14, neg. / previous stent to RCA,, via abida meneses ks HATCHER, JENNEY R ROBERT Juan M [facility] Diabetes mellitus Active 67088175 PAMELA RAMSEY [facility] Disorder of pancreas Active 9919021 September 08, 2014 Entered By: PADMA LONG Comment: 2.5cm low density lseion in bodyMay 2014 Entered By: PADMA LONG Comment: question of communication with pancreatic ductMa2014 Entered By: PADMA LONG Comment: favored to be cystic pancreatic cancerMa2014 Entered By: PADMA LONG Comment: per abdominal CT 09/01/14[facility] Dry eyes Active 518150080 [facility] Gastro-esophageal reflux disease without esophagitis ( SNOMED CT 718564597) Active 299794576 ALF GUEVARA [facility] Hyperlipidemia (SNOMED CT 21200976) Active 86193751 PAMELA RAMSEY [facility] Lung mass Active 537263498 September 08, 2014 E ntered By: PADMA LONG Comment: 4.5 cm mass, post. segment right upper lobe.September 08, 2014 Entered By: PADMA LONG Comment: mild adenopathy in mediastinum and bilat. hilaMa2014 Entered By: PADMA LONG Comment: most likely related to lung cancerSeptember 08, 2014 Entered By: PADMA LONG Comment: per ct angio of chest with contrast 09/01/14,via abida menesessdSep 23, 2014 Entered By: PADMA LONG Comment: per path report- mod. differentiated bronchogenic adenoca. 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 Active 56743374 KATHERINE MATT [facility] Obesity Active 802630198 [facility] Obstructive sleep apnea syndrome (SNOMED CT 15297198) Active 214140 015 [facility] [facility] Pancreatic cyst Active 07404930 JAYLENE GUEVARA Jihan Cortes [facility] Papilloma of right eyelid Active 002348453832866 [facility] Polyp of colon Active 74193054 Jan 23 Entered By: PADMA LONG Comment: c-scope 01/17/16, multiple benign colonic polypsJun 28, 2017 Entered By: PADMA LONG Comment: c-scope,06/25/17[facility], three benign polyps- sigmoid colon, transverse colon,cecum. see path report cprs SHARRON TORRES [facility] Pulmonary emphysema Active 73189675 0 BRIANA GAVIN [facility] Sensorineural hearing loss, bilateral Active 289817134 CHASTITY JEAN [facility] Snoring Active 80389248 SONG BULLOCK [facility] Type 2 diabetes mellitus without complication Active 550263790 [facility] Environmental Allergies (ICD-9-CM 477.9) Inactive 477.9 Dec 18, 2017 PADMA LONG [facility] External hemorrhoids without mention of complication (ICD-9- CM 455.3) Inactive 455.3 Dec 18, 2017 PADMA LONG [facility] Impotence of organic origin (ICD-9-CM 607.84) Inactive 607.84 Dec 18, 2017 [facility] Screening for Lipoid disorders (ICD-9-CM V77.91) Inactive V77.91 Jan 18, 2007 PADMA LONG [facility] Stye * (ICD-9-CM 373.11) Inactive 373.11 Dec 18, 201 8 Jan 18, 2007 Entered By: PADMA LONG Comment: bilat lower lids, chronic/recurrent PADMA LONG [facility] Tobacco Use Disorder, Continuous Inactive 305.1 Dec 18, 2017 Jan 18, 2007 Entered By: PADMA LONG Comment: one ppd PADMA LONG [facility] Radiology Reports: +/- 30 days of the encounter No Data Provided for This Section Pathology Reports: +/- 30 days of the encounter No Data Provided for This Section Encounter Notes: All associated encounter notes This section contains the clinical notes associated to the Encounter. Date/Time Encounter Note(s) Provider Source Oct 08, 2019 10:07 AM ADMINISTRATIVE NOTE: LOCAL TITLE: [place]-ADMIN [facility] STANDARD TITLE: ADMINISTRATIVE NOTE DATE OF NOTE: OCT 08, 2019@10:07 ENTRY DATE: OCT 08, 2019@10:08:07 AUTHOR: BESSIE BOWERS EXP COSIGNER: URGENCY: STATUS: COMPLETED [facility] Administrative Note: Scheduling: ANSWERING MACHINE MESSAGE On Sep@10:08 an attempt was made contact to schedule appointment in :[facility]. A message including the purpose of the call and a call back number was left on an answering machine. /gisell/ BESSIE [facility] Signed: 10/08/2019 10:08 [facility]
--- OUTSIDE RECORDS SUMMARY | 2019-11-11 02:17 | XMS REPORT | Encounter Summary ---
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 Date/Time Encounter Type Encounter Description Reason Provider Source Sep 22, 2019 04:13 PM Outpatient Encounter ADMIN PAT ACTIVTIES (MAS NONCT) ADRIEL HERNANDEZ [facility] IHE Encounter Template Text not used by NE Assessments - Encounter Diagnoses No Data Provided for This Section Plan of Treatment: Future Appointments (+ 6 months) and Future Tests (+/- 45 day s) The Plan of Treatment section includes future care activities for the patient fr om all NE treatment facilities. This section includes future appointments and fu ture orders which are active, pending or scheduled. Future Appointments This section includes appointments that were scheduled t o occur 6 months from the date of the Encounter, up to a maximum of 20 appointme nts. The data comes from all [place] treatment facilities. Appointment Date/Time Appointment Type Appointment Facili ty Name Sep 23, 2019 11:15 AM AMBULATORY - NONE [facility] Sep 23, 2019 11:30 AM AMB[facility]ATORY - MEDICINE [facility] Oct 07, 2019 09:15 AM AMBULATORY - NONE [facility] 15 Dec 31, 2019 11:00 AM AMBULATORY - NONE [facility] Dec 31, 2019 01:15 PM AMBULATORY - MEDICINE [facility] Jan 01, 2020 09:00 AM AMBULATORY - MEDICINE [facility] Jan 27, 2020 01:00 PM AMBULATORY - MEDICINE [facility] Surgical Procedures: All associated to the encounter No Data Provided for This Section Lab Results: +/- 30 days of the encounter This section includes the Chemistry and Hematology Lab R esults on record with NE for the patient. Radiology Reports and Pathology Report s are provided separately, in subsequent sections. Lab Results This section contains the Chemistry/Hematology Results usha t were resulted 30 days before or 30 days after the date of the Encounter. Date/Time Source Result Type Result - Unit Interpretation Reference Range Comment Sep 23, 2019 10:56 AM [facility] HEMOGLOBIN A1C Specimen Type: BLOOD No [...] Negative Negative Sep 23, 2019 10:56 AM [facility] MICROALBUMIN (ANANT,WI) RANDO M URINE Specimen Type: URINE Comment: Microalbumin is below the linearity of the instrument, unable to calculate the albumin/creatinine ratio. *MICROALBUMIN,RAND < 5 ug/mL *MICROALB/CREAT canc mcg/mg cr *UR PROTEIN < 6.8 mg/dL *UR CREATININE 37.4 mg/dL Not Available Sep 23, 2019 10:56 AM [facility] COMPREHENSIVE METABOLIC PA KELLE Specimen Type: [...] EGFR >60 Sep 23, 2019 10:56 AM [facility] CBC & DIFF Specimen Type: BLOOD [...] and tobacco- related health factors from the NE facility where the Encounter took place. Current Smoking Status This section includes the most current smoking, or tobacco -related health factor, from the NE facility where the Encounter took place. Date/Time Current Smoking Status Comment Facility Jun 26, 2018 02:13 PM NE-TOBACCO QUIT 15 YRS OR MORE [facility] Tobacco Use History This section includes a history of the smoking, or tobacco -related health factors, that were collected on or before the date of the Encoun ter. The data comes from the NE facility where the Encounter took place. Date/Time Smoking Status/Tobacco Use Comment [facility] Jun 26, 2018 02:13 PM NE-TOBACCO QUIT 15 YRS OR MORE [facility] Jun 27, 2017 01:39 PM NON-TOBACCO USER [facility] Jun 27, 2017 01:16 PM NON-TOBACCO USER [facility] Jan 06, 2015 02:07 PM NON-TOBACCO USER [facility] Nov 23, 2014 10:38 AM NON-TOBACCO USER [facility] Oct 26, 2014 10:36 AM NON-TOBACCO USER [facility] Oct 14, 2014 11:09 AM NON-TOBACCO USER [facility] Advance Directives: All historical and current No Data Provided for This Section Allergies and Adverse Reactions (ADRs): All historical and current Section Date Range: From patient's date of to the date document was create d. This section includes Allergies and Adverse Reactions (ADR s) on record with [facility] for the patient. The data comes from a ll [place] treatment facilities. It does not list Allergies/ADRs that were removed or entered in error. Some allergies/ADRs may be reported in t he Immunization section. Allergen Event Date Event Type Reaction(s) Severity Source [place] September 08, 2014 Propensity to adverse reactions to drug (diso rder) [facility] [place] September 08, 2014 Propensity to adverse reactions to drug (diso rder) [facility] Medications: [facility] dispensed (-15 months) [...] care team. The data comes from all [place] treatment facilities. Glossary of Pharmacy Terms:Active = A prescription that can be filled at the local [place] pharmacy.Active: On Hold = An active prescription that will not be filled until pharmacy resolves the issue.Active: Susp = An active prescription that is not scheduled to be filled yet.Clinic Order = A medication received during a visit to a NE clinic or emergency department (currently not available).Discontinued [...] TEST BLOOD GLUCOSE 50 Dec 19, 2019 [id number] September 04, 2019 PAMELA RAMSEY ACCU-CHEK CHARLES PLUS (GLUCOSE) TEST STRIP Discontinued USE 1 STRIP FOR TESTING TWO TIMES PER WEEK - DIRECTED TO TEST BLOOD GLUCOSE 50 Jul 25, 2019 [id number] Nov 12, 2018 PAMELA RAMSEY ALBUTEROL SO4 90MCG/ACTUAT (CFC-F) INHL,ORAL,6.7GM Active INHALE 2 PUFFS BY ORAL INHALATION EVERY 4 HOURS NEEDED FOR BREATHING. SHAKE WELL. RINSE MOUTHPIECE FREQUENTLY TO PREVENT CLOGGING. USE NEEDED FOR SHORTNESS OF AIR/WHEEZING FOR BREATHING. SHAKE WELL. RINSE MOUTHPIECE FREQUENTLY TO PREVENT CLOGGING. USE NEEDED FOR SHORTNESS OF AIR/WHEEZING 1 Dec 19, 2019 [id number] September 04, 2019 PAMELA RAMSEY [facility] ALCOHOL PREP PAD Active USE 1 PAD ON SKIN BIW TO CLEAN AND DISINFECT THE SKIN 200 Sep 29, 2020 [id number] Sep 30, 2019 [facility] ALCOHOL PREP PAD Discontinued USE 1 PAD ON SKIN BI W TO CLEAN AND DISINFECT THE SKIN 200 Dec 19, 2019 [id number] Jun 06, 2019 PAMELA RAMSEY GUILLERMO ALCOHOL PREP PAD Discontinued USE 1 PAD ON SKIN BI W TO CLEAN AND DISINFECT THE SKIN 200 Jul 25, 2019 [id number] Nov 12, 2018 PAMELA RAMSEY CBGUILLERMO ASPIRIN 25MG/DIPYRIDAMOLE 200MG CAP,SA Active T CHAPIN 1 CAPSULE BY MOUTH TWO TIMES A DAY - SWALLOW WHOLE. DO NOT CRUSH OR CHEW. FOR RECURRENT TIA/STROKE 180 Dec 19, 2019 [id number] Dec 20, 2018 [facility] ASPIRIN 25MG/DIPYRIDAMOLE 200MG CAP,SA Discontinued T CHAPIN 1 CAPSULE BY MOUTH TWO TIMES A DAY - SWALLOW WHOLE. DO NOT CRUSH OR CHEW. FOR RECURRENT TIA/STROKE 180 Feb 06, 2019 [id number] Sep 28, 2018 ZACHARY GRECO ASPIRIN 81MG TAB,EC Non- [facility] TAKE ONE TABLET BY MOUTH ONCE A DAY Non-VA Documented by: PADMA LONGume nted at: [facility] ATORVASTATIN CA 80MG TAB Active TAKE ONE TABLET BY MOUTH AT BEDTIME FOR CHOLESTEROL - REPORT ANY UNEXPLAINED MUSCLE PAIN/WEAKNESS TO YOUR PROVIDER 90 Dec 19, 2019 [id number] September 04, 2019 PAMELA RAMSEY ATORVASTATIN CA 80MG TAB Discontinued TAKE ONE TABLET BY MOUTH AT BEDTIME FOR CHOLESTEROL - REPORT ANY UNEXPLAINED MUSCLE PAIN/WEAKNESS TO YOUR PROVIDER 90 Dec 20, 2018 [id number] Nov 12, 2018 PAMELA RAMSEY BUDESONIDE 160MCG/FORMOTEROL FUM 4.5MCG/SPRAY INHL,ORAL,10.2 GM Active INHALE 2 PUFFS BY MOUTH TWO TIMES A DAY FOR BREATHING. SHAKE WELL. RINSE MOUTH AND SPIT AFTER EACH USE. 3 Apr 24, 2020 [id number] August 22, 2019 LISSA OATES [facility] CALCIUM/VITAMIN D TAB No n-VA TAKE BY MOUTH ONCE A DAY Non-V A Documented by: PADMA LONG nted at: [facility] CARBOXYMETHYLCELLULOSE NA 0.5% SOLN,OPH Active INSTILL ONE DROP IN BOTH EYES FOUR TIMES A DAY FOR DRY EYES 15 Feb 01, 2020 [id number] September 03 0 [facility] DICLOFENAC NA 1% GEL,TOP Discontinued APPLY 2 GRAMS A FFECTED AREA TWO TIMES A DAY NEEDED FOR PAIN AND INFLAMMATION. DO NOT EXCEED 16GM DAILY TO ANY AFFECTED JOINT OF LOWER EXTREMITIES. DO NOT EXCEED 8GM DAILY TO ANY AFFECTED JOINT OF UPPER EXTREMITES. DO NOT EXCEED TOTAL DOSE OF 32GM DAILY FOR ALL JOINTS. 100 Oct 31, 2018 [id number] Oct 06, 2018 ANAYELI KIRKPATRICK [facility] DICLOFENAC NA 1% GEL,TOP APPLY 2 GRAMS A FFECTED AREA TWO TIMES A DAY NEEDED FOR PAIN AND INFLAMMATION. DO NOT EXCEED 16GM DAILY TO ANY AFFECTED JOINT OF LOWER EXTREMITIES. DO NOT EXCEED 8GM DAILY TO ANY AFFECTED JOINT OF UPPER EXTREMITES. DO NOT EXCEED TOTAL DOSE OF 32GM DAILY FOR ALL JOINTS. 100 Jan 17, 2019 [id number] Dec 20, 2018 PAMELA RAMSEY FLUTICASONE PROPIONATE 50MCG/SPRAY SOLN,NASAL,16GM Active INSTILL 1 SPRAY IN EACH NOSTRIL ONCE A DAY SHAKE GENTLY BEFORE USE! - MUST BE USED DIRECTED FOR 3 WEEKS TO PROVIDE BENEFIT. * NO EARLY REFILLS * 1UNIT = 30DAYS AT 4 PF/DAY OR 60DAYS AT 2PF/DAY 2 Dec 19, 2019 [id number] August 26, 2019 PAMELA RAMSEY KETOTIFEN 0.025% SOLN,OPH Active INSTILL 1 DROP IN BOTH EYES TWO TIMES A DAY FOR RELIEF OF ALLERGY SYMPTOMS IN EYE(S) Feb 01, 2020 [id number] September 04, 2019 [facility] LANCET,SOFTCLIX Active USE LANCET BIW FOR TESTING BL OOD GLUCOSE DIRECTED 100 Sep 29, 2020 [id number] Sep 30, 2019 [facility] LANCET,SOFTCLIX Discontinued USE LANCET BIW FO R TESTING BLOOD GLUCOSE DIRECTED 100 Dec 19, 2019 [id number] Jun 06, 2019 [facility] LANCET,SOFTCLIX Discontinued USE LANCET BIW FO R TESTING BLOOD GLUCOSE DIRECTED 100 Jul 25, 2019 [id number] Nov 12, 2018 PAMELA RAMSEY LISINOPRIL 40MG TAB Non- [facility] TAKE ONE-HALF TABLET BY MOUTH EVERY MORNING Non-VA Documented by: PAMELA RAMSEY nted at: [facility] LORATADINE/PSEUDOEPHEDRINE TAB,SA Non-VA TAKE BY MOUTH No n-VA Documented by: JUAN LANG nted at: [facility] MAGNESIUM OXIDE 250MG TAB Non-VA TAKE 125 [...] ACID (REPLACES ACIPHEX) 180 Dec 19, 2019 [id number] August 26, 2019 PAMELA RAMSEY POTASSIUM GLUCONATE TAB Non-VA TAKE 595MG BY MOUTH ONCE A DAY N on-VA Documented by: PADMA LONG Docume nted at: [facility] PRASUGREL HCL 10MG TAB N on-VA TAKE ONE TABLET BY MOUTH ONCE A DAY Non-VA Documented by: KATHERINE MATT Docume nted at: [facility] PREGABALIN 150MG CAP,ORAL Non-VA TAKE 1 [...] Documented by: ANAYELI KIRKPATRICK Docume nted at: [facility] TERBINAFINE HCL 1% CREAM,TOP Active APPLY LIGHT LY TO AFFECTED AREA TWO TIMES A DAY FOR INFECTION 90 Sep 23, 2020 [id number] Sep 24, 2019 ADRIEL HERNANDEZ UREA 20% CREAM,TOP Active APPLY LIGHTLY (20%) TO AFFECTED AREA TWO TIMES A DAY NEEDED TO PROMOTE HEALING,RUB IN UNTIL COMPLETELY ABSORBED*FOR TOPICAL USE ONLY* APPLY TO BOTH FEET DIRECTED. 90 Sep 25, 2020 [id number] Sep 26, 2019 ADRIEL HERNANDEZ Problems (Conditions): All historical and current Section Date Range: From patient's date of to the date document was create d. This section includes a list of Problems (Conditions) know n to [facility] for the patient. It includes both active and inacti ve problems (conditions). The data comes from all [place] treatment facilities. Problem Status Problem Code Date of Onset Date of Resolution Comm ent(s) Provider Source Alcohol intake above recommended sensible limits Active 214504793 [facility] Allergic conjunctivitis Active 624452429 [facility] Bilateral senile combined form cataracts of eyes Active 80028260855 9108 [facility] Bilateral tinnitus Active [id number] CHASTITY JEAN [facility] Coronary arteriosclerosis Active [id number] September 08, 2014 Entered By: PADMA LONG Comment: hx of ptca to RCA several yrs. agoSeptember 08, 2014 Entered By: PADMA LONG Comment: heart cath 09/01/14, neg. / previous stent to RCA,, via abida meneses [place] HATCHER, JENNEY R ROBERT Juan M [facility] Diabetes mellitus Active 79473265 PAEMLA ARMSEY [facility] Disorder of pancreas Active 0075535 September 08, 2014 Entered By: PADMA LONG Comment: 2.5cm low density lseion in bodyMay 2014 Entered By: PADMA LONG Comment: question of communication with pancreatic ductMay 2014 Entered By: PADMA LONG Comment: favored to be cystic pancreatic cancerMa2014 Entered By: PADMA LONG Comment: per abdominal CT 09/01/14, [facility] PADMA LONG [facility] Dry eyes Active 892249554 [facility] Gastro-esophageal reflux disease without esophagitis ( SNOMED CT 076928398) Active 746896401 ALF GUEVARA [facility] Hyperlipidemia (SNOMED CT 22897329) Active 65309128 BRAULIOPAMELA TOMAS [facility] Lung mass Active 846183073 September 08, 2014 E ntered By: PADMA [...] report- mod. differentiated bronchogenic adenoca. 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 Active 65805286 KATHERINE MATT [facility] Obesity Active 209842863 [facility] Obstructive sleep apnea syndrome (SNOMED CT 49365765) Active 119955 015 PHILIPPE DOUGLASS [facility] Pancreatic cyst Active 73283939 JAYLENE GUEVARA Jihan Cortes [facility] Papilloma of right eyelid Active 846875377278512 [facility] Polyp of colon Active 34538891 Jan 23 Entered By: PADMA LONG Comment: c-scope 01/17/16, multiple benign colonic polypsJun 28, 2017 Entered By: PADMA LONG Comment: c-scope,06/25/17,[facility], three benign polyps- sigmoid colon, transverse colon,cecum. see path report cprs SHARRON TORRES [facility] Pulmonary emphysema Active 68812189 0 BRIANA LESLYE [facility] Sensorineural hearing loss, bilateral Active 770832093 SLEDGCHASTITY Zaragoza [facility] Snoring Active 85162155 [place] [facility] Type 2 diabetes mellitus without complication Active 239754891 [facility] Environmental Allergies (ICD-9-CM 477.9) Inactive 477.9 Dec 18, 2017 PADMA LONG [facility] External hemorrhoids without mention of complication (ICD-9- CM 455.3) Inactive 455.3 Dec 18, 2017 PADMA LONG [facility] Impotence of organic origin (ICD-9-CM 607.84) Inactive 607.84 Dec 18, 2017 [facility] Screening for Lipoid disorders (ICD-9-CM V77.91) Inactive V77.91 Jan 18, 2007 [facility] Stye * (ICD-9-CM 373.11) Inactive 373.11 Dec 18, 8 Jan 18, 2007 Entered By: PADMA LONG Comment: bilat lower lids, chronic/recurrent [facility] Tobacco Use Disorder, Continuous Inactive 305.1 Dec 18, 2017 Jan 18, 2007 Entered By: PADMA LONG Comment: one ppd PADMA LONG [facility] Radiology Reports: +/- 30 days of the encounter No Data Provided for This Section Pathology Reports: +/- 30 days of the encounter No Data Provided for This Section Encounter Notes: All associated encounter notes This section contains the clinical notes associated to the Encounter. Date/Time Encounter Note(s) Provider Source Sep 22, 2019 04:13 PM ADMINISTRATIVE NOTE: LOCAL TITLE: [place]-COVID-19 SCREENING STANDARD TITLE: ADMINISTRATIVE NOTE DATE OF NOTE: SEP 22, 2019@16:13 ENTRY DATE: SEP 22, 2019@16:13:47 AUTHOR: BESSIE BOWERS EXP COSIGNER: URGENCY: STATUS: COMPLETED Coronavirus Disease 2019 (COVID-19) Screen The patient reports that they have not been diagnosed with COVID-19. The patient reports that they are not waiting for the results of a COVID-19 lab test. The patient reports that they do not have a fever. The patient reports that they do not have a new or worsening cough or shortness of breath. The patient reports they do not have any cold or flu-like symptoms. The patient reports they do not have any new onset of diarrhea. Result: Screen is negative. /gisell/ BESSIE [facility] Signed: 09/22/2019 16:14 BESSIE BOWERS [facility]
--- OUTSIDE RECORDS SUMMARY | 2019-11-11 02:17 | XMS REPORT | Encounter Summary ---
Author Author Department of [facility] Aff rsHERBERTH Organization [facility] Aff[facility] rs Address [address] [place] [address] Phone Unavailable Care Team Providers [employer] Person Name Role Phone ADRIEL HERNANDEZ PCP Unavailable Insurance Providers: All historical and current No Data Provided for This Section Selected Encounter This section includes the information on record at [place] for the Encounter. Date/Time Encounter Type Encounter Description Reason Provider Source Oct 07, 2019 11:16 AM Outpatient Encounter ADMIN PAT ACTIVTIES ([place] NCT) [facility] IHE Encounter Template Text not used [...] 2019 11:00 AM AMBULATORY - NONE ARTUR TERAN [facility] C Dec 31, 2019 01:15 PM AMBULATORY - MEDICINE ARTUR TERAN V [facility] Jan 01, 2020 09:00 AM AMBULATORY - MEDICINE ARTUR TERAN V [facility] Jan 27, 2020 01:00 PM AMBULATORY - MEDICINE MARLENE KEYS V [facility] Mar 31, 2020 09:30 AM AMBULATORY - MEDICINE [facility] Mar 31, 2020 09:31 AM AMBULATORY - MEDICINE ARTUR TERAN V [facility] Mar 31, 2020 10:00 AM AMBULATORY - MEDICINE [facility] Mar 31, 2020 10:01 AM AMBULATORY - MEDICINE ARTUR TERAN [facility] Apr 07, 2020 08:00 AM AMBULATORY - NONE [facility] Surgical Procedures: All associated to the encounter [...] Range Comment Sep 23, 2019 10:56 AM [facility] HEMOGLOBIN A1C Specimen Type: [...] Negative Sep 23, 2019 10:56 AM [facility] MICROALBUMIN (ANANT,WI) RANDO M URINE Specimen Type: URINE Comment: Microalbumin is below the linearity of the instrument, unable to calculate the albumin/creatinine ratio. *MICROALBUMIN,RAND < 5 ug/mL *MICROALB/CREAT canc mcg/mg cr *UR PROTEIN < 6.8 mg/dL *UR CREATININE 37.4 mg/dL Not Available Sep 23, 2019 10:56 AM [facility] COMPREHENSIVE METABOLIC PA KELLE Specimen Type: [...] >60 Sep 23, 2019 10:56 AM [facility] CBC & DIFF Specimen Type: BLOOD [...] took place. Date/Time Smoking Status/Tobacco Use Comment [facility] Nov 23, 2017 09:51 AM CURRENT TOBACCO [...] Dec 01, 2005 08:32 AM NON-SMOKER [facility] Dec 01, 2005 08:32 AM NON-TOBACCO USER [facility] Advance Directives: All historical and current No [...] to adverse reactions to drug (diso rder) [facility] 15 PLAVIX September 08, 2014 Propensity to adverse reactions to drug (diso rder) [facility], [facility] 15 Medications: [facility] dispensed (-15 months) [...] TEST BLOOD GLUCOSE 50 Dec 19, 2019 [id number] September 04, 2019 PAMELA RAMSEY ACCU-CHEK CHARLES PLUS (GLUCOSE) TEST STRIP Discontinued USE 1 STRIP FOR TESTING TWO TIMES PER WEEK - DIRECTED TO TEST BLOOD GLUCOSE 50 Jul 25, 2019 [id number] Nov 12, 2018 PAMELA RAMSEY GUILLERMO ALBUTEROL SO4 90MCG/ACTUAT (CFC-F) INHL,ORAL,6.7GM Active INHALE 2 PUFFS BY ORAL INHALATION EVERY 4 HOURS NEEDED FOR BREATHING. SHAKE WELL. RINSE MOUTHPIECE FREQUENTLY TO PREVENT CLOGGING. USE NEEDED FOR SHORTNESS OF AIR/WHEEZING FOR BREATHING. SHAKE WELL. RINSE MOUTHPIECE FREQUENTLY TO PREVENT CLOGGING. USE NEEDED FOR SHORTNESS OF AIR/WHEEZING 1 Dec 19, 2019 [id number] September 04, 2019 PAMELA RAMSEY [facility] ALCOHOL PREP PAD Active USE 1 PAD ON SKIN BIW TO CLEAN AND DISINFECT THE SKIN 200 Sep 29, 2020 [id number] Sep 30, 2019 MAURICIO RANKIN [facility] ALCOHOL PREP PAD Discontinued USE 1 PAD ON SKIN BI W TO CLEAN AND DISINFECT THE SKIN 200 Dec 19, 2019 [id number] Jun 06, 2019 PAMELA RAMSEY [facility] ALCOHOL PREP PAD Discontinued USE 1 PAD ON SKIN BI W TO CLEAN AND DISINFECT THE SKIN 200 Jul 25, 2019 [id number] Nov 12, 2018 PAMELA RAMSEY [facility] ASPIRIN 25MG/DIPYRIDAMOLE 200MG CAP,SA Active T CHAPIN 1 CAPSULE BY MOUTH TWO TIMES A DAY - SWALLOW WHOLE. DO NOT CRUSH OR CHEW. FOR RECURRENT TIA/STROKE 180 Dec 19, 2019 [id number] Dec 20, 2018 PAMELA RAMSEY GUILLERMO ASPIRIN 25MG/DIPYRIDAMOLE 200MG CAP,SA Discontinued T CHAPIN 1 CAPSULE BY MOUTH TWO TIMES A DAY - SWALLOW WHOLE. DO NOT CRUSH OR CHEW. FOR RECURRENT TIA/STROKE 180 Feb 06, 2019 [id number] Sep 28, 2018 ZACHARY GRECO V [facility] ASPIRIN 81MG TAB,EC Non- [facility] TAKE ONE TABLET BY MOUTH ONCE A DAY Non-VA Documented by: PADMA LONG nted at: PRIMITIV[facility] NESS ATORVASTATIN CA 80MG TAB Active TAKE ONE TABLET BY MOUTH AT BEDTIME FOR CHOLESTEROL - REPORT ANY UNEXPLAINED MUSCLE PAIN/WEAKNESS TO YOUR PROVIDER 90 Dec 19, 2019 [id number] September 04, 2019 PAMELA RAMSEY ATORVASTATIN CA 80MG TAB Discontinued TAKE ONE TABLET BY MOUTH AT BEDTIME FOR CHOLESTEROL - REPORT ANY UNEXPLAINED MUSCLE PAIN/WEAKNESS TO YOUR PROVIDER 90 Dec 20, 2018 [id number] Nov 12, 2018 PAMELA RAMSEY BUDESONIDE 160MCG/FORMOTEROL FUM 4.5MCG/SPRAY INHL,ORAL,10.2 GM Active INHALE 2 PUFFS BY MOUTH TWO TIMES A DAY FOR BREATHING. SHAKE WELL. RINSE MOUTH AND SPIT AFTER EACH USE. 3 Apr 24, 2020 [id number] August 22, 2019 LISSA OATES [facility] CALCIUM/VITAMIN D TAB No n-VA TAKE BY MOUTH ONCE A DAY Non-V A Documented by: PADMA LONG nted at: PRIMITIV[facility] NESS CARBOXYMETHYLCELLULOSE NA 0.5% SOLN,OPH Active INSTILL ONE DROP IN BOTH EYES FOUR TIMES A DAY FOR DRY EYES Feb 01, 2020 [id number] September 03 NEDA LAO [facility] DICLOFENAC NA 1% GEL,TOP Discontinued APPLY 2 GRAMS A FFECTED AREA TWO TIMES A DAY NEEDED FOR PAIN AND INFLAMMATION. DO NOT EXCEED 16GM DAILY TO ANY AFFECTED JOINT OF LOWER EXTREMITIES. DO NOT EXCEED 8GM DAILY TO ANY AFFECTED JOINT OF UPPER EXTREMITES. DO NOT EXCEED TOTAL DOSE OF 32GM DAILY FOR ALL JOINTS. 100 Oct 31, 2018 [id number] Oct 06, 2018 ANAYELI KIRKPATRICK [facility] DICLOFENAC NA 1% GEL,TOP APPLY 2 GRAMS A FFECTED AREA TWO TIMES A DAY NEEDED FOR PAIN AND INFLAMMATION. DO NOT EXCEED 16GM DAILY TO ANY AFFECTED JOINT OF LOWER EXTREMITIES. DO NOT EXCEED 8GM DAILY TO ANY AFFECTED JOINT OF UPPER EXTREMITES. DO NOT EXCEED TOTAL DOSE OF 32GM DAILY FOR ALL JOINTS. 100 Jan 17, 2019 [id number] Dec 20, 2018 PAMELA RAMSEY FLUTICASONE PROPIONATE 50MCG/SPRAY SOLN,NASAL,16GM Active INSTILL 1 SPRAY IN EACH NOSTRIL ONCE A DAY SHAKE GENTLY BEFORE USE! - MUST BE USED DIRECTED FOR 3 WEEKS TO PROVIDE BENEFIT. * NO EARLY REFILLS * 1UNIT = 30DAYS AT 4 PF/DAY OR 60DAYS AT 2PF/DAY 2 Dec 19, 2019 [id number] August 26, 2019 PAMELA RAMSEY KETOTIFEN 0.025% SOLN,OPH Active INSTILL 1 DROP IN BOTH EYES TWO TIMES A DAY FOR RELIEF OF ALLERGY SYMPTOMS IN EYE(S) Feb 01, 2020 [id number] September 04, 2019 NEDA SHAW [facility] LANCET,SOFTCLIX Active USE LANCET BIW FOR TESTING BL OOD GLUCOSE DIRECTED 100 Sep 29, 2020 [id number] Sep 30, 2019 MAURICIO RANKIN [facility] LANCET,SOFTCLIX Discontinued USE LANCET BIW FO R TESTING BLOOD GLUCOSE DIRECTED 100 Dec 19, 2019 [id number] Jun 06, 2019 PAMELA RAMSEY [facility] LANCET,SOFTCLIX Discontinued USE LANCET BIW FO R TESTING BLOOD GLUCOSE DIRECTED 100 Jul 25, 2019 [id number] Nov 12, 2018 PAMELA RAMSEY LISINOPRIL 40MG TAB Non- [facility] TAKE ONE-HALF TABLET BY MOUTH EVERY MORNING Non-VA Documented by: PAMELA RAMSEY nted at: [facility] NESS LORATADINE/PSEUDOEPHEDRINE TAB,SA Non-VA TAKE BY MOUTH No n-VA Documented by: JUAN LANG nted at: ARTUR TERAN [facility] MAGNESIUM OXIDE 250MG TAB Non-VA TAKE [...] ACID (REPLACES ACIPHEX) 180 Dec 19, 2019 [id number] August 26, 2019 PAMELA RAMSEY POTASSIUM GLUCONATE TAB Non-VA TAKE 595MG BY MOUTH ONCE A DAY N on-VA Documented by: PADMA LONG Docume nted at: PRIMITIV[facility] NESS PRASUGREL HCL 10MG TAB N on-VA TAKE ONE TABLET BY MOUTH ONCE A DAY Non-VA Documented by: KATHERINE MATT Docume nted at: [facility] PREGABALIN 150MG CAP,ORAL Non-VA TAKE 1 CAPSULE [...] by: ANAYELI KIRKPATRICK Docume nted at: [facility] TERBINAFINE HCL 1% CREAM,TOP Active APPLY LIGHT LY TO AFFECTED AREA TWO TIMES A DAY FOR INFECTION Sep 23, 2020 [id number] Sep 24, 2019 ADRIEL HERNANDEZ UREA 20% CREAM,TOP Active APPLY LIGHTLY (20%) TO AFFECTED AREA TWO TIMES A DAY NEEDED TO PROMOTE HEALING,RUB IN UNTIL COMPLETELY ABSORBED*FOR TOPICAL USE ONLY* APPLY TO BOTH FEET DIRECTED. Sep 25, 2020 [id number] Sep 26, 2019 ADRIEL HERNANDEZ Problems (Conditions): [...] Alcohol intake above recommended sensible limits Active 147679587 [facility] Allergic conjunctivitis Active 789356015 NEDA SHAW [facility] Bilateral senile combined form cataracts of eyes Active 59949254652 9108 NEDA SHAW [facility] Bilateral tinnitus Active 0916567191514 CHASTITY JEAN [facility] Coronary arteriosclerosis Active 69352901 September 08, 2014 Entered By: PADMA LONG Comment: hx of ptca to RCA several yrs. agoSeptember 08, 2014 Entered By: PADMA LONG Comment: heart cath 09/01/14, neg. / previous stent to RCA,, via abida meneses [place] HATCHER, JENNEY R ROBERT Juan M [facility] Diabetes mellitus Active 88224104 PAMELA RAMSEY [facility] Disorder of pancreas Active 2406587 September 08, 2014 Entered By: PADMA LONG Comment: 2.5cm low density lseion in bodyMay 2014 Entered By: PADMA LONG Comment: question of communication with pancreatic ductMa2014 Entered By: PADMA LONG Comment: favored to be cystic pancreatic cancerMa2014 Entered By: PADMA LONG Comment: per abdominal CT 09/01/14, [facility] P[facility]MA LONG [facility] Dry eyes Active 498372379 NEDA SHAW [facility] Gastro-esophageal reflux disease without esophagitis ( SNOMED CT 116366926) Active 801849634 ALF GUEVARA [facility] Hyperlipidemia (SNOMED CT 58919687) Active 62004638 PAMELA RAMSEY [facility] Lung mass Active 807111511 September 08, 2014 E ntered By: PADMA LONG Comment: 4.5 cm mass, post. segment right upper lobe.September 08, 2014 Entered By: PADMA LONG Comment: mild adenopathy in mediastinum and bilat. hilaMa2014 Entered By: PADMA LONG Comment: most likely related to lung cancerSeptember 08, 2014 Entered By: PADMA LONG Comment: per ct angio of chest with contrast 09/01/14,via abida menesesmsSep 23, 2014 Entered By: PADMA LONG Comment: per path report- mod. differentiated bronchogenic adenoca. 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 Active 94402786 KATHERINE MATT [facility] Obesity Active 475763997 [facility] Obstructive sleep apnea syndrome (SNOMED CT 04397479) Active 485808 015 [place] [facility] Pancreatic cyst Active 24580641 JAYLENE GUEVARA Jihan Cortes [facility] Papilloma of right eyelid Active 045464164015590 NEDA SHAW [facility] Polyp of colon Active 23656069 Jan 23 Entered By: PADMA LONG Comment: c-scope 01/17/16, multiple benign colonic polypsJun 28, 2017 Entered By: PADMA LONG Comment: c-scope,06/25/17,[facility], three benign polyps- sigmoid colon, transverse colon,cecum. see path report cprs SHARRON TORRES [facility] Pulmonary emphysema Active 45159579 0 BRIANA GAVIN [facility] Sensorineural hearing loss, bilateral Active 810639326 CHASTITY JAEN [facility] Snoring Active 58467210 SONG BULLOCK [facility] Type 2 diabetes mellitus without complication Active 239252440 NEDA SHAW [facility] Environmental Allergies (ICD-9-CM 477.9) Inactive 477.9 Dec 18, 2017 PADMA LONG [facility] External hemorrhoids without mention of complication (ICD-9- CM 455.3) Inactive 455.3 Dec 18, 2017 PADMA LONG [facility] Impotence of organic origin (ICD-9-CM 607.84) Inactive 607.84 Dec 18, 2017 [facility] Screening for Lipoid disorders (ICD-9-CM V77.91) Inactive V77.91 Jan 18, 2007 [facility] Stye * (ICD-9-CM 373.11) Inactive 373.11 Dec 18, 201 8 Jan 18, 2007 Entered By: PADMA LONG Comment: bilat lower lids, chronic/recurrent PADMA LONG [facility] Tobacco Use Disorder, Continuous Inactive 305.1 Dec 18, 2017 Jan 18, 2007 Entered By: PADMA LONG Comment: one ppd PADMA LONG [facility] Radiology Reports: +/- 30 days of the encounter No Data Provided for This Section Pathology Reports: +/- 30 days of the encounter No Data Provided for This Section Encounter Notes: All associated encounter notes This section contains the clinical notes associated to the Encounter. Date/Time Encounter Note(s) Provider Source Oct 07, 2019 11:16 AM DIAGNOSTIC STUDY REPORT: LOCAL TITLE: WI-FORM LETTER DIAGNOSTIC RESULTS STANDARD TITLE: DIAGNOSTIC STUDY REPORT DATE OF NOTE: OCT 07, 2019@11:16 ENTRY DATE: OCT 07, 2019@11:16:50 AUTHOR: SHANIQUA SCHMIDT COSIGNER: URGENCY: STATUS: COMPLETED Department of [facility] Artur Teran [address] [place] [address] HERBERTH BOB [address] [place] [address], [address] Sep Dear HERBERTH BOB, The purpose of this letter is to inform you of your test results done recently at the [facility], [place], [place]. Reviewed recent lab- A1C is slightly elevated at 6.7, meaning your blood sugars are averaging 137. Fasting blood sugar is good at 98, diabetes stable. Call the [place] [facility] to schedule a lab appt to return to clinic in 6 months for FBS and A1C. CBC is normal, urine is clear. Liver enzyme, alkaline phosphatase is slightly elevated at 154, not clinical to treat. Triglycerides are slightly elevated at 167. Begin low fat diet, exercise as tolerated, continue with lipitor as directed. SHANIQUA SCHMIDT [place]
--- OUTSIDE RECORDS SUMMARY | 2019-11-11 02:17 | XMS REPORT | Encounter Summary ---
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 Date/Time Encounter Type Encounter Description Reason Provider Source Oct 07, 2019 09:31 AM Outpatient Encounter ADMIN PAT ACTIVTIES ([place] NCT) [facility] IHE Encounter Template Text not used by [place] Assessments - Encounter Diagnoses No Data Provided for This Section Plan of Treatment: Future Appointments (+ 6 months) and Future Tests (+/- 45 day s) The Plan of Treatment section includes future care activities for the patient fr om all [place] treatment facilities. This section includes future appointments and fu ture orders which are active, pending or scheduled. Future Appointments This section includes appointments that were scheduled t o occur 6 months from the date of the Encounter, up to a maximum of 20 appointme nts. The data comes from all [place] treatment facilities. Appointment Date/Time Appointment Type Appointment Facili ty Name Dec 31, 2019 11:00 AM AMBULATORY - NONE [facility] Dec 31, 2019 01:15 PM AMBULATORY - MEDICINE [facility]UR [facility]AS [facility] Jan 01, 2020 09:00 AM AMBULATORY - MEDICINE ARTUR BLAS [facility] Jan 27, 2020 01:00 PM AMBULATORY - MEDICINE [facility]LEN[facility] KEYS [facility] Mar 31, 2020 09:30 AM AMBULATORY - MEDICINE [facility] Mar 31, 2020 09:31 AM AMBULATORY - MEDICINE [facility] Mar 31, 2020 10:00 AM AMBULATORY - MEDICINE [facility] Mar 31, 2020 10:01 AM AMBULATORY - MEDICINE [facility] BL[facility] Apr 07, 2020 08:00 AM AMBULATORY - NONE [facility] Surgical Procedures: All associated to the [...] Range Comment Sep 23, 2019 10:56 AM [facility] HEMOGLOBIN A1C Specimen Type: BLOOD No [...] Negative Sep 23, 2019 10:56 AM [facility] MICROALBUMIN (ANANT,WI) RANDO M URINE Specimen Type: URINE Comment: Microalbumin is below the linearity of the instrument, unable to calculate the albumin/creatinine ratio. *MICROALBUMIN,RAND < 5 ug/mL *MICROALB/CREAT canc mcg/mg cr *UR PROTEIN < 6.8 mg/dL *UR CREATININE 37.4 mg/dL Not Available Sep 23, 2019 10:56 AM [facility] COMPREHENSIVE METABOLIC PA KELLE Specimen Type: [...] >60 Sep 23, 2019 10:56 AM [facility] CBC & DIFF Specimen Type: BLOOD [...] and tobacco- related health factors from the [place] facility where the Encounter took place. Current Smoking Status This section includes the most current smoking, or tobacco -related health factor, from the [place] facility where the Encounter took place. Date/Time Current Smoking Status Comment Facility Nov 23, 2017 09:51 AM TOBACCO USER OFFERED MEDS [facility] Tobacco Use History This section includes a history of the smoking, or tobacco -related health factors, that were collected on or before the date of the Encoun ter. The data comes from the [place] facility where the Encounter took place. Date/Time Smoking Status/Tobacco Use Comment [facility] Nov 23, 2017 09:51 AM [...] Dec 01, 2005 08:32 AM NON-SMOKER [facility] Dec 01, 2005 08:32 AM NON-TOBACCO USER [facility] Advance Directives: All historical and current No Data Provided for This Section Allergies and Adverse Reactions (ADRs): All historical and current Section Date Range: From patient's date of to the date document was create d. This section includes Allergies and Adverse Reactions (ADR s) on record with [facility] for the patient. The data comes from a ll [place] treatment facilities. It does not list Allergies/ADRs that were removed or entered in error. Some allergies/ADRs may be reported in t he Immunization section. Allergen Event Date Event Type Reaction(s) Severity Source [place] September 08, 2014 Propensity to adverse reactions to drug (diso rder) [facility] 15 [place] September 08, 2014 Propensity to adverse reactions to drug (diso rder) [facility] 15 Medications: VA dispensed (-15 months) and Non-VA Documented (Obtained Outside A) Section Date Range: 1) prescriptions processed by a VA pharmacy in the last 15 m [facility], and 2) all medications recorded in the [place] medical record as "non-VA medic ations". Pharmacy terms refer to [place] pharmacy's work on prescriptions. [facility] patient s are advised to take their medications as instructed by their health care team. The data comes from all [place] treatment facilities. Glossary of Pharmacy Terms:Active = A prescription that can be filled at the local [place] pharmacy.Active: On Hold = An active prescription that will not be filled until pharmacy resolves the issue.Active: Susp = An active prescription that is not scheduled to be filled yet.Clinic Order = A medication received during a visit to a [place] clinic or emergency department (currently not available).Discontinued [...] TEST BLOOD GLUCOSE 50 Dec 19, 2019 [id number] September 04, 2019 PAMELA RAMSEY ACCU-CHEK CHARLES PLUS (GLUCOSE) TEST STRIP Discontinued USE 1 STRIP FOR TESTING TWO TIMES PER WEEK - DIRECTED TO TEST BLOOD GLUCOSE 50 Jul 25, 2019 [id number] Nov 12, 2018 PAMELA RAMSEY GUILLERMO ALBUTEROL SO4 90MCG/ACTUAT (CFC-F) INHL,ORAL,6.7GM Active INHALE 2 PUFFS BY ORAL INHALATION EVERY 4 HOURS NEEDED FOR BREATHING. SHAKE WELL. RINSE MOUTHPIECE FREQUENTLY TO PREVENT CLOGGING. USE NEEDED FOR SHORTNESS OF AIR/WHEEZING FOR BREATHING. SHAKE WELL. RINSE MOUTHPIECE FREQUENTLY TO PREVENT CLOGGING. USE NEEDED FOR SHORTNESS OF AIR/WHEEZING 1 Dec 19, 2019 [id number] September 04, 2019 PAMELA RAMSEY [facility] ALCOHOL PREP PAD Active USE 1 PAD ON SKIN BIW TO CLEAN AND DISINFECT THE SKIN 200 Sep 29, 2020 [id number] Sep 30, 2019 MAURICIO RANKIN [facility] ALCOHOL PREP PAD Discontinued USE 1 PAD ON SKIN BI W TO CLEAN AND DISINFECT THE SKIN 200 Dec 19, 2019 [id number] Jun 06, 2019 PAMELA RAMSEY [facility] ALCOHOL PREP PAD Discontinued USE 1 PAD ON SKIN BI W TO CLEAN AND DISINFECT THE SKIN 200 Jul 25, 2019 [id number] Nov 12, 2018 PAMELA RAMSEY [facility] ASPIRIN 25MG/DIPYRIDAMOLE 200MG CAP,SA Active T CHAPIN 1 CAPSULE BY MOUTH TWO TIMES A DAY - SWALLOW WHOLE. DO NOT CRUSH OR CHEW. FOR RECURRENT TIA/STROKE 180 Dec 19, 2019 [id number] Dec 20, 2018 PAMELA RAMSEY GUILLERMO ASPIRIN 25MG/DIPYRIDAMOLE 200MG CAP,SA Discontinued T CHAPIN 1 CAPSULE BY MOUTH TWO TIMES A DAY - SWALLOW WHOLE. DO NOT CRUSH OR CHEW. FOR RECURRENT TIA/STROKE 180 Feb 06, 2019 [id number] Sep 28, 2018 ZACHARY GRECO [facility] ASPIRIN 81MG TAB,EC Non- VA TAKE ONE TABLET BY MOUTH ONCE A DAY Non-VA Documented by: PADMA LONG nted at: [facility] ATORVASTATIN CA 80MG TAB Active TAKE ONE TABLET BY MOUTH AT BEDTIME FOR CHOLESTEROL - REPORT ANY UNEXPLAINED MUSCLE PAIN/WEAKNESS TO YOUR PROVIDER 90 Dec 19, 2019 [id number] September 04, 2019 PAMELA RAMSEY ATORVASTATIN CA 80MG TAB Discontinued TAKE ONE TABLET BY MOUTH AT BEDTIME FOR CHOLESTEROL - REPORT ANY UNEXPLAINED MUSCLE PAIN/WEAKNESS TO YOUR PROVIDER 90 Dec 20, 2018 [id number] Nov 12, 2018 PAMELA RAMSEY BUDESONIDE 160MCG/FORMOTEROL FUM 4.5MCG/SPRAY INHL,ORAL,10.2 GM Active INHALE 2 PUFFS BY MOUTH TWO TIMES A DAY FOR BREATHING. SHAKE WELL. RINSE MOUTH AND SPIT AFTER EACH USE. 3 Apr 24, 2020 [id number] August 22, 2019 LISSA OATES [facility] CALCIUM/VITAMIN D TAB No n-VA TAKE BY MOUTH ONCE A DAY Non-V A Documented by: PADMA LONG nted at: [facility] CARBOXYMETHYLCELLULOSE NA 0.5% SOLN,OPH Active INSTILL ONE DROP IN BOTH EYES FOUR TIMES A DAY FOR DRY EYES Feb 01, 2020 [id number] September 03 [facility] DICLOFENAC NA 1% GEL,TOP Discontinued APPLY 2 GRAMS A FFECTED AREA TWO TIMES A DAY NEEDED FOR PAIN AND INFLAMMATION. DO NOT EXCEED 16GM DAILY TO ANY AFFECTED JOINT OF LOWER EXTREMITIES. DO NOT EXCEED 8GM DAILY TO ANY AFFECTED JOINT OF UPPER EXTREMITES. DO NOT EXCEED TOTAL DOSE OF 32GM DAILY FOR ALL JOINTS. 100 Oct 31, 2018 [id number] Oct 06, 2018 ANAYELI KIRKPATRICK [facility] DICLOFENAC NA 1% GEL,TOP APPLY 2 GRAMS A FFECTED AREA TWO TIMES A DAY NEEDED FOR PAIN AND INFLAMMATION. DO NOT EXCEED 16GM DAILY TO ANY AFFECTED JOINT OF LOWER EXTREMITIES. DO NOT EXCEED 8GM DAILY TO ANY AFFECTED JOINT OF UPPER EXTREMITES. DO NOT EXCEED TOTAL DOSE OF 32GM DAILY FOR ALL JOINTS. 100 Jan 17, 2019 [id number] Dec 20, 2018 PAMELA RAMSEY FLUTICASONE PROPIONATE 50MCG/SPRAY SOLN,NASAL,16GM Active INSTILL 1 SPRAY IN EACH NOSTRIL ONCE A DAY SHAKE GENTLY BEFORE USE! - MUST BE USED DIRECTED FOR 3 WEEKS TO PROVIDE BENEFIT. * NO EARLY REFILLS * 1UNIT = 30DAYS AT 4 PF/DAY OR 60DAYS AT 2PF/DAY 2 Dec 19, 2019 [id number] August 26, 2019 PAMELA RAMSEY KETOTIFEN 0.025% SOLN,OPH Active INSTILL 1 DROP IN BOTH EYES TWO TIMES A DAY FOR RELIEF OF ALLERGY SYMPTOMS IN EYE(S) Feb 01, 2020 [id number] September 04, 2019 [facility] LANCET,SOFTCLIX Active USE LANCET BIW FOR TESTING BL OOD GLUCOSE DIRECTED 100 Sep 29, 2020 [id number] Sep 30, 2019 [facility]IO RANKIN [facility] LANCET,SOFTCLIX Discontinued USE LANCET BIW FO R TESTING BLOOD GLUCOSE DIRECTED 100 Dec 19, 2019 [id number] Jun 06, 2019 [facility]ELA RAMSEY [facility] LANCET,SOFTCLIX Discontinued USE LANCET BIW FO R TESTING BLOOD GLUCOSE DIRECTED 100 Jul 25, 2019 [id number] Nov 12, 2018 PAMELA RAMSEY LISINOPRIL 40MG TAB Non- [facility] TAKE ONE-HALF TABLET BY MOUTH EVERY MORNING Non-VA Documented by: PAMELA RAMSEY nted at: [facility] LORATADINE/PSEUDOEPHEDRINE TAB,SA Non-VA TAKE BY MOUTH No n-VA Documented by: JUAN LANG nted at: [facility] BLAS [facility] MAGNESIUM OXIDE 250MG TAB Non-VA TAKE [...] ACID (REPLACES ACIPHEX) 180 Dec 19, 2019 [id number] August 26, 2019 PAMELA RAMSEY POTASSIUM GLUCONATE TAB Non-VA TAKE 595MG BY MOUTH ONCE A DAY N on-VA Documented by: PADMA LONG Docume nted at: [facility] PRASUGREL HCL 10MG TAB N on-VA TAKE ONE TABLET BY MOUTH ONCE A DAY Non-VA Documented by: KATHERINE MATT Docume nted at: [facility] PREGABALIN 150MG CAP,ORAL Non-VA TAKE 1 CAPSULE [...] by: ANAYELI KIRKPATRICK Docume nted at: [facility] TERBINAFINE HCL 1% CREAM,TOP Active APPLY LIGHT LY TO AFFECTED AREA TWO TIMES A DAY FOR INFECTION Sep 23, 2020 [id number] Sep 24, 2019 ADRIEL HERNANDEZ UREA 20% CREAM,TOP Active APPLY LIGHTLY (20%) TO AFFECTED AREA TWO TIMES A DAY NEEDED TO PROMOTE HEALING,RUB IN UNTIL COMPLETELY ABSORBED*FOR TOPICAL USE ONLY* APPLY TO BOTH FEET DIRECTED. Sep 25, 2020 [id number] Sep 26, 2019 ADRIEL HERNANDEZ Problems (Conditions): All historical and current Section Date Range: From patient's date of to the date document was create d. This section includes a list of Problems (Conditions) know n to [facility] for the patient. It includes both active and inacti ve problems (conditions). The data comes from all [place] treatment facilities. Problem Status Problem Code Date of Onset Date of Resolution Comm ent(s) Provider Source Alcohol intake above recommended sensible limits Active 134743357 [facility] Allergic conjunctivitis Active 175362615 [facility] Bilateral senile combined form cataracts of eyes Active 59961244752 9108 [facility] Bilateral tinnitus Active 4657075401860 [facility] Coronary arteriosclerosis Active 80862987 September 08, 2014 Entered By: PADMA LONG Comment: hx of ptca to RCA several yrs. agoSeptember 08, 2014 Entered By: PADMA LONG Comment: heart cath 09/01/14, neg. / previous stent to RCA,, via abida meneses ks HATCHER, JENNEY R ROBERT Juan M [facility] Diabetes mellitus Active 47226589 PAMELA RAMSEY [facility] Disorder of pancreas Active 4442065 September 08, 2014 Entered By: PADMA LONG Comment: 2.5cm low density lseion in bodyMay 2014 Entered By: PADMA LONG Comment: question of communication with pancreatic ductMa2014 Entered By: PADMA LONG Comment: favored to be cystic pancreatic cancerMa2014 Entered By: PADMA LONG Comment: per abdominal CT 09/01/14, [facility] Dry eyes Active 510641513 [facility] Gastro-esophageal reflux disease without esophagitis ( SNOMED CT 832641581) Active 423232405 ALF GUEVARA [facility] Hyperlipidemia (SNOMED CT 75758750) Active 36843439 PAMELA RAMSEY [facility] Lung mass Active 343755224 September 08, 2014 E ntered By: PADMA LONG Comment: 4.5 cm mass, post. segment right upper lobe.September 08, 2014 Entered By: PADMA LONG Comment: mild adenopathy in mediastinum and bilat. hilaMa2014 Entered By: PADMA LONG Comment: most likely related to lung cancerSeptember 08, 2014 Entered By: PADMA LONG Comment: per ct angio of chest with contrast 09/01/14,via abida menesesmdSep 23, 2014 Entered By: PADMA LONG Comment: per path report- mod. differentiated bronchogenic adenoca. 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 Active 60437994 KATHERINE MATT [facility] Obesity Active 734145759 [facility] Obstructive sleep apnea syndrome (SNOMED CT 98790463) Active 054749 015 [place] [facility] Pancreatic cyst Active 48755375 JAYLENE GUEVARA Jihan Cortes [facility] Papilloma of right eyelid Active 701839796232042 [facility] Polyp of colon Active 54922743 Jan 23 Entered By: PADMA LONG Comment: c-scope 01/17/16, multiple benign colonic polypsJun 28, 2017 Entered By: PADMA LONG Comment: c-scope,06/25/17,[facility], three benign polyps- sigmoid colon, transverse colon,cecum. see path report cprs SHARRON TORRES [facility] Pulmonary emphysema Active 27974135 0 BRIANA GAVIN [facility] Sensorineural hearing loss, bilateral Active 909188120 CHASTITY JEAN [facility] Snoring Active 19596024 SONG BULLOCK [facility] Type 2 diabetes mellitus without complication Active 449136951 [facility] Environmental Allergies (ICD-9-CM 477.9) Inactive 477.9 Dec 18, 2017 PADMA LONG [facility] External hemorrhoids without mention of complication (ICD-9- CM 455.3) Inactive 455.3 Dec 18, 2017 PADMA LONG [facility] Impotence of organic origin (ICD-9-CM 607.84) Inactive 607.84 Dec 18, 2017 [facility] Screening for Lipoid disorders (ICD-9-CM V77.91) Inactive V77.91 Jan 18, 2007 [facility] Stye * (ICD-9-CM 373.11) Inactive 373.11 Dec 18, 201 8 Jan 18, 2007 Entered By: PADMA LONG Comment: bilat lower lids, chronic/recurrent PADMA LONG [facility] Tobacco Use Disorder, Continuous Inactive 305.1 Dec 18, 2017 Jan 18, 2007 Entered By: PADMA LONG Comment: one ppd PADMA LONG [facility] Radiology Reports: +/- 30 days of the encounter No Data Provided for This Section Pathology Reports: +/- 30 days of the encounter No Data Provided for This Section Encounter Notes: All associated encounter notes This section contains the clinical notes associated to the Encounter. Date/Time Encounter Note(s) Provider Source Oct 07, 2019 09:31 AM ADMINISTRATIVE NOTE: LOCAL TITLE: PA-ADMINISTRATIVE NOTE (BP,O) STANDARD TITLE: ADMINISTRATIVE NOTE DATE OF NOTE: OCT 07, 2019@09:31 ENTRY DATE: OCT 07, 2019@09:31:58 AUTHOR: ADRIEL HERNANDEZ EXP COSIGNER: URGENCY: STATUS: COMPLETED reviewed recent lab- A1c=6.7=[address] fbs is good at 98, diabetes stable, rtc 6 months for fbs and A1c, cbc is normal, urine is clear, alk. phos. sl. elevated at 154, not clinical to tx., trig. sl. elevated at 167, low fat diet, exercise as tolerated, cont. with lipitor as directed, please call or send letter, thank you /gisell/ ADRIEL HERNANDEZ [facility]- Signed: 10/07/2019 09:43 Receipt Acknowledged By: * AWAITING SIGNATURE * SHANIQUA SCHMIDT [facility]
--- OUTSIDE RECORDS SUMMARY | 2019-11-11 02:18 | XMS REPORT | Encounter Summary ---
Author Author Department of [facility] Organization [facility] Address [address] [place] [address] Phone Unavailable Care Team Providers Care Enrollment Management Manager Name Role Phone ADRIEL HERNANDEZ PCP Unavailable Insurance Providers: All historical and current No Data Provided for This Section Selected Encounter This section includes the information on record at [place] for the Encounter. Date/Time Encounter Type Encounter Description Reason Provider Source Aug 07, 2019 10:30 AM Outpatient Encounter TELEPHONE/MEDICINE ARTUR BLAS [facility] IHE Encounter Template Text not used [...] 07, 2019 09:15 AM AMBULATORY - NONE [facility] 15 Dec 31, 2019 11:00 AM AMBULATORY - NONE [facility] Dec 31, 2019 01:15 PM AMBULATORY - MEDICINE ARTUR BLAS [facility] Jan 01, 2020 09:00 AM AMBULATORY - MEDICINE ARTUR BLAS [facility] Jan 27, 2020 01:00 PM AMBULATORY - MEDICINE [facility] Surgical Procedures: All associated to the encounter [...] and tobacco- related health factors from the [place] facility where the Encounter took place. Current Smoking Status This section includes the most current smoking, or tobacco -related health factor, from the [place] facility where the Encounter took place. Date/Time Current Smoking Status Comment Facility Jun 26, 2018 02:13 PM [place]-TOBACCO QUIT 15 YRS OR MORE PORSHA BLAS [facility] Tobacco Use History This section includes a history of the smoking, or tobacco -related health factors, that were collected on or before the date of the Encoun ter. The data comes from the [place] facility where the Encounter took place. Date/Time Smoking Status/Tobacco Use Comment [facility] Jun 26, 2018 02:13 PM [place]-TOBACCO QUIT 15 YRS OR MORE PORSHA BLAS [facility] Jun 27, 2017 01:39 PM NON-TOBACCO USER [facility] Jun 27, 2017 01:16 PM NON-TOBACCO USER [facility] Jan 06, 2015 02:07 PM NON-TOBACCO USER [facility] Nov 23, 2014 10:38 AM NON-TOBACCO USER [facility] Oct 26, 2014 10:36 AM NON-TOBACCO USER [facility] Oct 14, 2014 11:09 AM NON-TOBACCO USER [facility]UR [facility] Advance Directives: All historical and current No [...] to adverse reactions to drug (diso rder) [facility] 15 PLAVIX September 08, 2014 Propensity to adverse reactions to drug (diso rder) [facility] Medications: VA dispensed (-15 months) and Non-VA Documented (Obtained Outside V A) Section Date Range: 1) prescriptions processed by a VA pharmacy in the last 15 m [facility], and 2) all medications [...] TEST BLOOD GLUCOSE 50 Dec 19, 2019 [id number] September 04, 2019 PAMELA RAMSEY ACCU-CHEK CHARLES PLUS (GLUCOSE) TEST STRIP Discontinued USE 1 STRIP FOR TESTING TWO TIMES PER WEEK - DIRECTED TO TEST BLOOD GLUCOSE 50 Jul 25, 2019 [id number] Nov 12, 2018 PAMELA RAMSEY ALBUTEROL SO4 90MCG/ACTUAT (CFC-F) INHL,ORAL,6.7GM Active INHALE 2 PUFFS BY ORAL INHALATION EVERY 4 HOURS NEEDED FOR BREATHING. SHAKE WELL. RINSE MOUTHPIECE FREQUENTLY TO PREVENT CLOGGING. USE NEEDED FOR SHORTNESS OF AIR/WHEEZING FOR BREATHING. SHAKE WELL. RINSE MOUTHPIECE FREQUENTLY TO PREVENT CLOGGING. USE NEEDED FOR SHORTNESS OF AIR/WHEEZING 1 Dec 19, 2019 [id number] September 04, 2019 PAMELA RAMSEY CBGUILLERMO ALCOHOL PREP PAD Active USE 1 PAD ON SKIN BIW TO CLEAN AND DISINFECT THE SKIN 200 Sep 29, 2020 [id number] Sep 30, 2019 MAURICIO RANKIN CB ALCOHOL PREP PAD Discontinued USE 1 PAD ON SKIN BI W TO CLEAN AND DISINFECT THE SKIN 200 Dec 19, 2019 [id number] Jun 06, 2019 PAMELA RAMSEY CBOC ALCOHOL PREP PAD Discontinued USE 1 PAD ON SKIN BI W TO CLEAN AND DISINFECT THE SKIN 200 Jul 25, 2019 [id number] Nov 12, 2018 PAMELA RAMSEY ASPIRIN 25MG/DIPYRIDAMOLE 200MG CAP,SA Active T CHAPIN 1 CAPSULE BY MOUTH TWO TIMES A DAY - SWALLOW WHOLE. DO NOT CRUSH OR CHEW. FOR RECURRENT TIA/STROKE 180 Dec 19, 2019 [id number] Dec 20, 2018 PAMELA RAMSEY ASPIRIN 25MG/DIPYRIDAMOLE 200MG CAP,SA Discontinued T CHAPIN 1 CAPSULE BY MOUTH TWO TIMES A DAY - SWALLOW WHOLE. DO NOT CRUSH OR CHEW. FOR RECURRENT TIA/STROKE 180 Feb 06, 2019 [id number] Sep 28, 2018 ZACHARY GRECO [facility] ASPIRIN 81MG TAB,EC Non- VA TAKE ONE TABLET BY MOUTH ONCE A DAY Non-VA Documented by: PADMA LONG nted at: [facility] ATORVASTATIN CA 80MG TAB Active TAKE ONE TABLET BY MOUTH AT BEDTIME FOR CHOLESTEROL - REPORT ANY UNEXPLAINED MUSCLE PAIN/WEAKNESS TO YOUR PROVIDER 90 Dec 19, 2019 [id number] September 04, 2019 PAMELA RAMSEY ATORVASTATIN CA 80MG TAB Discontinued TAKE ONE TABLET BY MOUTH AT BEDTIME FOR CHOLESTEROL - REPORT ANY UNEXPLAINED MUSCLE PAIN/WEAKNESS TO YOUR PROVIDER 90 Dec 20, 2018 [id number] Nov 12, 2018 PAMELA RAMSEY BUDESONIDE 160MCG/FORMOTEROL FUM 4.5MCG/SPRAY INHL,ORAL,10.2 GM Active INHALE 2 PUFFS BY MOUTH TWO TIMES A DAY FOR BREATHING. SHAKE WELL. RINSE MOUTH AND SPIT AFTER EACH USE. 3 Apr 24, 2020 [id number] August 22, 2019 LISSA OATES [facility] CALCIUM/VITAMIN D TAB No n-VA TAKE BY MOUTH ONCE A DAY Non-V A Documented by: PADMA LONG nted at: [facility] CARBOXYMETHYLCELLULOSE NA 0.5% SOLN,OPH Active INSTILL ONE DROP IN BOTH EYES FOUR TIMES A DAY FOR DRY EYES 15 Feb 01, 2020 [id number] September 03 0 NEDA SHAW [facility] DICLOFENAC NA 1% GEL,TOP Discontinued APPLY 2 GRAMS A FFECTED AREA TWO TIMES A DAY NEEDED FOR PAIN AND INFLAMMATION. DO NOT EXCEED 16GM DAILY TO ANY AFFECTED JOINT OF LOWER EXTREMITIES. DO NOT EXCEED 8GM DAILY TO ANY AFFECTED JOINT OF UPPER EXTREMITES. DO NOT EXCEED TOTAL DOSE OF 32GM DAILY FOR ALL JOINTS. 100 Oct 31, 2018 [id number] Oct 06, 2018 ANAYELI KIRKPATRICK [facility] DICLOFENAC NA 1% GEL,TOP APPLY 2 GRAMS A FFECTED AREA TWO TIMES A DAY NEEDED FOR PAIN AND INFLAMMATION. DO NOT EXCEED 16GM DAILY TO ANY AFFECTED JOINT OF LOWER EXTREMITIES. DO NOT EXCEED 8GM DAILY TO ANY AFFECTED JOINT OF UPPER EXTREMITES. DO NOT EXCEED TOTAL DOSE OF 32GM DAILY FOR ALL JOINTS. 100 Jan 17, 2019 [id number] Dec 20, 2018 PAMELA RAMSEY FLUTICASONE PROPIONATE 50MCG/SPRAY SOLN,NASAL,16GM Active INSTILL 1 SPRAY IN EACH NOSTRIL ONCE A DAY SHAKE GENTLY BEFORE USE! - MUST BE USED DIRECTED FOR 3 WEEKS TO PROVIDE BENEFIT. * NO EARLY REFILLS * 1UNIT = 30DAYS AT 4 PF/DAY OR 60DAYS AT 2PF/DAY 2 Dec 19, 2019 [id number] August 26, 2019 PAMELA RAMSEY KETOTIFEN 0.025% SOLN,OPH Active INSTILL 1 DROP IN BOTH EYES TWO TIMES A DAY FOR RELIEF OF ALLERGY SYMPTOMS IN EYE(S) Feb 01, 2020 [id number] September 04, 2019 N[facility]A SHAW [facility] LANCET,SOFTCLIX Active USE LANCET BIW FOR TESTING BL OOD GLUCOSE DIRECTED 100 Sep 29, 2020 [id number] Sep 30, 2019 [facility]OMAURICIOLl[facility] LANCET,SOFTCLIX Discontinued USE LANCET BIW FO R TESTING BLOOD GLUCOSE DIRECTED 100 Dec 19, 2019 [id number] Jun 06, 2019 PAMELA RAMSEY LANCET,SOFTCLIX Discontinued USE LANCET BIW FO R TESTING BLOOD GLUCOSE DIRECTED 100 Jul 25, 2019 [id number] Nov 12, 2018 PAMELA RAMSEY LISINOPRIL 40MG TAB Non- VA TAKE ONE-HALF TABLET BY MOUTH EVERY MORNING Non-VA Documented by: PAMELA RAMSEY nted at: [facility] LORATADINE/PSEUDOEPHEDRINE TAB,SA Non-VA TAKE BY MOUTH No n-VA Documented by: JUAN LANG nted at: ARTUR BLAS [facility] MAGNESIUM OXIDE 250MG TAB Non-VA TAKE [...] ACID (REPLACES ACIPHEX) 180 Dec 19, 2019 [id number] August 26, 2019 PAMELA RAMSEY POTASSIUM GLUCONATE TAB Non-VA TAKE 595MG BY MOUTH ONCE A DAY N on-VA Documented by: PADMA LONG nted at: [facility] PRASUGREL HCL 10MG TAB N on-VA TAKE ONE TABLET BY MOUTH ONCE A DAY Non-VA Documented by: KATHERINE MATT Docume nted at: [facility] PREGABALIN 150MG CAP,ORAL Non-VA TAKE 1 [...] Documented by: ANAYELI KIRKPATRICK Docume nted at: [facility] TERBINAFINE HCL 1% CREAM,TOP Active APPLY LIGHT LY TO AFFECTED AREA TWO TIMES A DAY FOR INFECTION Sep 23, 2020 [id number] Sep 24, 2019 ADRIEL HERNANDEZ UREA 20% CREAM,TOP Active APPLY LIGHTLY (20%) TO AFFECTED AREA TWO TIMES A DAY NEEDED TO PROMOTE HEALING,RUB IN UNTIL COMPLETELY ABSORBED*FOR TOPICAL USE ONLY* APPLY TO BOTH FEET DIRECTED. 90 Sep 25, 2020 [id number] Sep 26, 2019 ADRIEL HERNANDEZ Problems (Conditions): [...] Alcohol intake above recommended sensible limits Active 740966695 PADMA LONG [facility] Allergic conjunctivitis Active 822093937 OVIEDONEDA [facility] Bilateral senile combined form cataracts of eyes Active 26425476238 9108 COLINNEDA [facility] Bilateral tinnitus Active [id number] CHASTITY JEAN [facility] Coronary arteriosclerosis Active 05095770 September 08, 2014 Entered By: PADMA LONG Comment: hx of ptca to RCA several yrs. agoMa2014 Entered By: PADMA LONG Comment: heart cath 09/01/14, neg. / previous stent to RCA,, [facility] Diabetes mellitus Active 43678034 PAMELA RAMSEY [facility] Disorder of pancreas Active [id number] September 08, 2014 Entered By: PADMA LONG Comment: 2.5cm low density lseion in bodyMay 2014 Entered By: PADMA LONG Comment: question of communication with pancreatic ductMay 2014 Entered By: PADMA LONG Comment: favored to be cystic pancreatic cancerMay 2014 Entered By: PADMA LONG Comment: per abdominal CT 09/01/14, [facility] Dry eyes Active 800696178 NEDA SHAW [facility] Gastro-esophageal reflux disease without esophagitis ( SNOMED CT 728051682) Active 678883573 ALF [facility]UEVARA [facility] Hyperlipidemia (SNOMED CT 07473956) Active 96045748 [facility] RAM[facility] Lung mass Active 056981552 September 08, 2014 E ntered By: PADMA LONG Comment: 4.5 cm mass, post. segment right upper lobe.September 08, 2014 Entered By: PADMA LONG Comment: mild adenopathy in mediastinum and bilat. hilaMa2014 Entered By: PADMA LONG Comment: most likely related to lung cancerMa2014 Entered By: PADMA LONG Comment: per ct angio of chest with contrast 09/01/14,via abida menesesmaSep 23, 2014 Entered By: PADMA LONG Comment: per path report- mod. differentiated bronchogenic adenoca. 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 Active 16926690 KATHERINE MATT [facility] Obesity Active 387693693 [facility] Obstructive sleep apnea syndrome (SNOMED CT 76541703) Active 960770 015 [facility] Pancreatic cyst Active 20323543 JAYLENE GUEVARA Jihan Cortes [facility] Papilloma of right eyelid Active 483272673113270 NEDA SHAW [facility] Polyp of colon Active 83462861 Jan 23 Entered By: PADMA LONG Comment: c-scope 01/17/16, multiple benign colonic polypsJun 28, 2017 Entered By: PADMA LONG Comment: c-scope,06/25/17,ar-[facility], three benign polyps- sigmoid colon, transverse colon,cecum. see path report cprs BRIANSHARRON Mila THAYER [facility] Pulmonary emphysema Active 89700463 0 BRIANA LESLYE [facility] Sensorineural hearing loss, bilateral Active 053379074 CHASTITY JEAN [facility] Snoring Active 44514096 SONG BULLOCK [facility] Type 2 diabetes mellitus without complication Active 578444770 NEDA SHAW [facility] Environmental Allergies (ICD-9-CM 477.9) Inactive 477.9 Dec 18, 2017 PADMA LONG [facility] External hemorrhoids without mention of complication (ICD-9- CM 455.3) Inactive 455.3 Dec 18, 2017 PADMA LONG [facility] Impotence of organic origin (ICD-9-CM 607.84) Inactive 607.84 Dec 18, 2017 PADMA LONG [facility] Screening for Lipoid disorders (ICD-9-CM V77.91) Inactive V77.91 Jan 18, 2007 [facility] Stye * (ICD-9-CM 373.11) Inactive 373.11 Dec 18, 201 8 Jan 18, 2007 Entered By: PADMA LONG Comment: bilat lower lids, chronic/recurrent PADMA LONG Juan M [facility] Tobacco Use Disorder, Continuous Inactive 305.1 Dec 18, 2017 Jan 18, 2007 Entered By: PADMA LONG Comment: one ppd PADMA LONG [facility] Radiology Reports: +/- 30 days of the encounter No Data Provided for This Section Pathology Reports: +/- 30 days of the encounter No Data Provided for This Section Encounter Notes: All associated encounter notes This section contains the clinical notes associated to the Encounter. Date/Time Encounter Note(s) Provider Source August 22, 2019 08:38 AM ADMINISTRATIVE NOTE: LOCAL TITLE: [place]-ADMINISTRATIVE NOTE (BP,O) STANDARD TITLE: ADMINISTRATIVE NOTE DATE OF NOTE: AUGUST 22, 2019@08:38 ENTRY DATE: AUGUST 22, 2019@08:38:37 AUTHOR: WANDA NELSON EXP COSIGNER: URGENCY: STATUS: COMPLETED Patient called and requested his CT in December be done in the community. He does not want to drive 6 hours round trip. CITC consult entered per patient request. /gisell/ WANDA LINDSEY RN Signed: 08/22/2019 08:39 WANDA NELSON [facility]
--- OUTSIDE RECORDS SUMMARY | 2019-11-11 02:18 | XMS REPORT | Encounter Summary ---
Author Author Department [facility] HERBERTH kline Organization Department of [facility] Address [address] [place] [address] Phone Unavailable Care Team Providers Care Human Resource Adviser Name Role Phone MARYADRIEL PCP Unavailable Insurance Providers: All historical and current No Data Provided for This Section Selected Encounter This section includes the information on record at [place] for the Encounter. Date/Time Encounter Type Encounter Description Reason Provider Source Oct 23, 2019 09:46 AM Outpatient Encounter ADMIN PAT ACTIVTIES (MASNO NCT) [facility] 15 IHE Encounter Template Text not used by MT Assessments - Encounter Diagnoses No Data Provided for This Section Plan of Treatment: Future Appointments (+ 6 months) and Future Tests (+/- 45 day s) The Plan of Treatment section includes future care activities for the patient fr om all [place] treatment facilities. This section includes future appointments and fu ture orders which are active, pending or scheduled. Future Appointments This section includes appointments that were scheduled t o occur 6 months from the date of the Encounter, up to a maximum of 20 appointme nts. The data comes from all [place] treatment facilities. Appointment Date/Time Appointment Type Appointment Facili ty Name Dec 31, 2019 11:00 AM AMBULATORY - NONE ARTUR BLAS [facility] Dec 31, 2019 01:15 PM AMBULATORY - MEDICINE ARTUR BLAS [facility] Jan 01, 2020 09:00 AM AMBULATORY - MEDICINE ARTUR BLAS [facility] Jan 27, 2020 01:00 PM AMBULATORY - MEDICINE [facility] Mar 31, 2020 09:30 AM AMBULATORY - MEDICINE [facility] Mar 31, 2020 09:31 AM AMBULATORY - MEDICINE ARTUR BLAS [facility] Mar 31, 2020 10:00 AM AMBULATORY - MEDICINE [facility] Mar 31, 2020 10:01 AM AMBULATORY - MEDICINE ARTUR BLAS [facility] Apr 07, 2020 08:00 AM AMBULATORY - NONE [facility] Surgical Procedures: All associated to the encounter [...] patient. The data comes from a ll [place] treatment facilities. It does not list Allergies/ADRs that were removed or entered in error. Some allergies/ADRs may be reported in t Immunization section. Allergen Event Date Event Type Reaction(s) Severity Source [place] September 08, 2014 Propensity to adverse reactions to drug (diso rder) [facility] 15 PLAV[place] September 08, 2014 Propensity to adverse reactions to drug (diso rder) [facility] 15 Medications: VA dispensed (-15 months) and Non-VA Documented (Obtained Outside V A) Section Date Range: 1) prescriptions processed by a VA pharmacy in the last [address] [facility], and 2) all medications recorded in the [place] medical record as "non-VA medic ations". Pharmacy terms refer to VA pharmacy's work on prescriptions. VA patient s are advised to take their medications as instructed by their health care team. The data comes from all [place] treatment facilities. Glossary of Pharmacy Terms:Active = A prescription that can be filled at the local [place] pharmacy.Active: On Hold = An active prescription that will not be filled until pharmacy resolves the issue.Active: Susp = An active prescription that is not scheduled to be filled yet.Clinic Order = A medication received during a visit to a [place] clinic or emergency department (currently not available).Discontinued = A prescription stopped by a [place] provider. It is no longer available to be filled. = A prescription which is too old to fill. This does not refer to the expiration date of the medication in the container. Non-VA = A medication that came from someplace other than a VA pharmacy. This may be a prescription from either the [place] or other providers that was filled outside the [place]. Or, it may be an over the [...] TEST BLOOD GLUCOSE 50 Dec 19, 2019 [id number] September 04, 2019 PAMELA RAMSEY CBGUILLERMO ACCU-CHEK CHARLES PLUS (GLUCOSE) TEST STRIP Discontinued USE 1 STRIP FOR TESTING TWO TIMES PER WEEK - DIRECTED TO TEST BLOOD GLUCOSE 50 Jul 25, 2019 [id number] Nov 12, 2018 PAMELA RAMSEY CB ALBUTEROL SO4 90MCG/ACTUAT (CFC-F) INHL,ORAL,6.7GM Active INHALE 2 PUFFS BY ORAL INHALATION EVERY 4 HOURS NEEDED FOR BREATHING. SHAKE WELL. RINSE MOUTHPIECE FREQUENTLY TO PREVENT CLOGGING. USE NEEDED FOR SHORTNESS OF AIR/WHEEZING FOR BREATHING. SHAKE WELL. RINSE MOUTHPIECE FREQUENTLY TO PREVENT CLOGGING. USE NEEDED FOR SHORTNESS OF AIR/WHEEZING 1 Dec 19, 2019 [id number] September 04, 2019 PAMELA RAMSEY CB ALCOHOL PREP PAD Active USE 1 PAD ON SKIN BIW TO CLEAN AND DISINFECT THE SKIN 200 Sep 29, 2020 [id number] Sep 30, 2019 MAURICIO RANKIN CB ALCOHOL PREP PAD Discontinued USE 1 PAD ON SKIN BI W TO CLEAN AND DISINFECT THE SKIN 200 Dec 19, 2019 [id number] Jun 06, 2019 PAMELA RAMSEY [facility] ALCOHOL PREP PAD Discontinued USE 1 PAD ON SKIN BI W TO CLEAN AND DISINFECT THE SKIN 200 Jul 25, 2019 [id number] Nov 12, 2018 PAMELA RAMSEY [facility] ASPIRIN 25MG/DIPYRIDAMOLE 200MG CAP,SA Active T CHAPIN 1 CAPSULE BY MOUTH TWO TIMES A DAY - SWALLOW WHOLE. DO NOT CRUSH OR CHEW. FOR RECURRENT TIA/STROKE 180 Dec 19, 2019 [id number] Dec 20, 2018 KAYLIE RAMSEYMckayla NESS ASPIRIN 25MG/DIPYRIDAMOLE 200MG CAP,SA Discontinued T CHAPIN 1 CAPSULE BY MOUTH TWO TIMES A DAY - SWALLOW WHOLE. DO NOT CRUSH OR CHEW. FOR RECURRENT TIA/STROKE 180 Feb 06, 2019 [id number] Sep 28, 2018 ZACHARY GRECO [facility] ASPIRIN 81MG TAB,EC Non- VA TAKE ONE TABLET BY MOUTH ONCE A DAY Non-VA Documented by: PADMA LONG nted at: [facility] ATORVASTATIN CA 80MG TAB Active TAKE ONE TABLET BY MOUTH AT BEDTIME FOR CHOLESTEROL - REPORT ANY UNEXPLAINED MUSCLE PAIN/WEAKNESS TO YOUR PROVIDER 90 Dec 19, 2019 [id number] September 04, 2019 PAMELA RAMSEY ATORVASTATIN CA 80MG TAB Discontinued TAKE ONE TABLET BY MOUTH AT BEDTIME FOR CHOLESTEROL - REPORT ANY UNEXPLAINED MUSCLE PAIN/WEAKNESS TO YOUR PROVIDER 90 Dec 20, 2018 [id number] Nov 12, 2018 PAMELA RAMSEY [facility] BUDESONIDE 160MCG/FORMOTEROL FUM 4.5MCG/SPRAY INHL,ORAL,10.2 GM Active INHALE 2 PUFFS BY MOUTH TWO TIMES A DAY FOR BREATHING. SHAKE WELL. RINSE MOUTH AND SPIT AFTER EACH USE. 3 Apr 24, 2020 [id number] August 22, 2019 LISSA OATES [facility] CALCIUM/VITAMIN D TAB No n-VA TAKE BY MOUTH ONCE A DAY Non-V A Documented by: PADMA LONG nted at: [facility] CARBOXYMETHYLCELLULOSE NA 0.5% SOLN,OPH Active INSTILL ONE DROP IN BOTH EYES FOUR TIMES A DAY FOR DRY EYES 15 Feb 01, 2020 [id number] September 03 0 [facility] DICLOFENAC NA 1% GEL,TOP Discontinued APPLY 2 GRAMS A FFECTED AREA TWO TIMES A DAY NEEDED FOR PAIN AND INFLAMMATION. DO NOT EXCEED 16GM DAILY TO ANY AFFECTED JOINT OF LOWER EXTREMITIES. DO NOT EXCEED 8GM DAILY TO ANY AFFECTED JOINT OF UPPER EXTREMITES. DO NOT EXCEED TOTAL DOSE OF 32GM DAILY FOR ALL JOINTS. 100 Oct 31, 2018 [id number] Oct 06, 2018 ANAYELI KIRKPATRICK Luda Juan M SIMSMila [facility] DICLOFENAC NA 1% GEL,TOP APPLY 2 GRAMS A FFECTED AREA TWO TIMES A DAY NEEDED FOR PAIN AND INFLAMMATION. DO NOT EXCEED 16GM DAILY TO ANY AFFECTED JOINT OF LOWER EXTREMITIES. DO NOT EXCEED 8GM DAILY TO ANY AFFECTED JOINT OF UPPER EXTREMITES. DO NOT EXCEED TOTAL DOSE OF 32GM DAILY FOR ALL JOINTS. 100 Jan 17, 2019 [id number] Dec 20, 2018 PAMELA RAMSEY FLUTICASONE PROPIONATE 50MCG/SPRAY SOLN,NASAL,16GM Active INSTILL 1 SPRAY IN EACH NOSTRIL ONCE A DAY SHAKE GENTLY BEFORE USE! - MUST BE USED DIRECTED FOR 3 WEEKS TO PROVIDE BENEFIT. * NO EARLY REFILLS * 1UNIT = 30DAYS AT 4 PF/DAY OR 60DAYS AT 2PF/DAY 2 Dec 19, 2019 [id number] August 26, 2019 PAMELA RAMSEY KETOTIFEN 0.025% SOLN,OPH Active INSTILL 1 DROP IN BOTH EYES TWO TIMES A DAY FOR RELIEF OF ALLERGY SYMPTOMS IN EYE(S) Feb 01, 2020 [id number] September 04, 2019 [facility] LANCET,SOFTCLIX Active USE LANCET BIW FOR TESTING BL OOD GLUCOSE DIRECTED Sep 29, 2020 [id number] Sep 30, 2019 MAURICIO RANKIN LANCET,SOFTCLIX Discontinued USE LANCET BIW FO R TESTING BLOOD GLUCOSE DIRECTED Dec 19, 2019 [id number] Jun 06, 2019 PAMELA RAMSEY LANCET,SOFTCLIX Discontinued USE LANCET BIW FO R TESTING BLOOD GLUCOSE DIRECTED Jul 25, 2019 [id number] Nov 12, 2018 PAMELA RAMSEY LISINOPRIL 40MG TAB Non- VA TAKE ONE-HALF TABLET BY MOUTH EVERY MORNING Non-VA Documented by: PAMELA RAMSEY nted at: [facility] LORATADINE/PSEUDOEPHEDRINE TAB,SA Non-VA TAKE BY MOUTH No n-VA Documented by: JUAN LANG nted at: [facility] MAGNESIUM OXIDE 250MG TAB Non-VA TAKE [...] ACID (REPLACES ACIPHEX) 180 Dec 19, 2019 [id number] August 26, 2019 PAMELA RAMSEY POTASSIUM GLUCONATE TAB Non-VA TAKE 595MG BY MOUTH ONCE A DAY N on-VA Documented by: PADMA LONG nted at: [facility] PRASUGREL HCL 10MG TAB N on-VA TAKE ONE TABLET BY MOUTH ONCE A DAY Non-VA Documented by: KATHERINE MATT Docume nted at: [facility] PREGABALIN 150MG CAP,ORAL Non-VA TAKE 1 CAPSULE BY MOUTH TWO TIMES A DAY Non-VA Docume nted by: PAMELA RAMSEY nted at: [facility] PREGABALIN 150MG CAP,ORAL Non-VA TAKE 1 CAPSULE BY MOUTH TWO TIMES A DAY Non-VA Docume nted by: PAMELA RAMSEY nted at: [facility] SEMAGLUTIDE INJ,SOLN Non -VA INJECT SUBCUTANEOUSLY EVERY WEEK Non-VA Documented by: ANAYELI KIRKPATRICK Docume nted at: [facility] TERBINAFINE HCL 1% CREAM,TOP Active APPLY LIGHT LY TO AFFECTED AREA TWO TIMES A DAY FOR INFECTION Sep 23, 2020 [id number] Sep 24, 2019 ADRIEL HERNANDEZ UREA 20% CREAM,TOP Active APPLY LIGHTLY (20%) TO AFFECTED AREA TWO TIMES A DAY NEEDED TO PROMOTE HEALING,RUB IN UNTIL COMPLETELY ABSORBED*FOR TOPICAL USE ONLY* APPLY TO BOTH FEET DIRECTED. Sep 25, 2020 [id number] Sep 26, 2019 ADRIEL HERNANDEZ Zaid [facility] Problems (Conditions): All historical and current Section Date Range: From patient's date of to the date document was create d. This section includes a list of Problems (Conditions) know n to VA for the patient. It includes both active and inacti ve problems (conditions). The data comes from all [place] treatment facilities. Problem Status Problem Code Date of Onset Date of Resolution Comm ent(s) Provider Source Alcohol intake above recommended sensible limits Active 783738750 PADMA LONG [facility] Allergic conjunctivitis Active 195365697 CAPTAIN COOKNEDA [facility] Bilateral senile combined form cataracts of eyes Active 54055593928 9108 CAPTAIN COOKNEDA [facility] Bilateral tinnitus Active 6131821184720 CHASTITY JEAN [facility] Coronary arteriosclerosis Active 36156661 September 08, 2014 Entered By: PADMA LONG Comment: hx of ptca to RCA several yrs. agoSeptember 08, 2014 Entered By: PADMA LONG Comment: heart cath 09/01/14, neg. / previous stent to RCA,, via abida meneses [place] HATCHER, JENNEY R ROBERT [facility] Diabetes mellitus Active 75497642 PAMELA RAMSEY [facility] Disorder of pancreas Active 6112766 September 08, 2014 Entered By: PADMA LONG Comment: 2.5cm low density lseion in bodyMay 2014 Entered By: PADMA LONG Comment: question of communication with pancreatic ductMay 2014 Entered By: PADMA LONG Comment: favored to be cystic pancreatic cancerMa2014 Entered By: PADMA LONG Comment: per abdominal CT 09/01/14, via abida meneses ks FRAZIER, JAY J [facility] Dry eyes Active 024697254 [facility] Gastro-esophageal reflux disease without esophagitis ( SNOMED CT 848237587) [facility]390336 [facility] Hyperlipidemia (SNOMED CT 05560494) Active 07897592 PAMELA RAMSEY [facility] Lung mass Active 104313554 September 08, 2014 E ntered By: PADMA LONG Comment: 4.5 cm mass, post. segment right upper lobe.September 08, 2014 Entered By: PADMA LONG Comment: mild adenopathy in mediastinum and bilat. hilaMay 2014 Entered By: PADMA LONG Comment: most likely related to lung cancerMa2014 Entered By: PADMA LONG Comment: per ct angio of chest with [facility]01/14[facility] Entered By: PADMA LONG Comment: per path report- mod. differentiated bronchogenic adenoca. 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 Active 57379747 KATHERINE MATT [facility] Obesity Active 100926429 [facility] Obstructive sleep apnea syndrome (SNOMED CT 85228752) Active 365092 015 PHILIPPE DOUGLASS [facility] Pancreatic cyst Active 45167478 JAYLENE GUEVARA [facility] Papilloma of right eyelid Active 272969750408182 NEDA SHAW [facility] Polyp of colon Active 56901451 Jan 23 16 Entered By: PADMA LONG Comment: c-scope 01/17/16, multiple benign colonic polypsJun 28, 2017 Entered By: PADMA LONG Comment: c-scope,06/25/17,[facility], three benign polyps- sigmoid colon, transverse colon,cecum. see path report cprs SHARRON TORRES [facility] Pulmonary emphysema Active 05648567 0 BRIANA GAVIN [facility] Sensorineural hearing loss, bilateral Active 872577270 CHASTITY JEAN [facility] Snoring Active 13203293 SONG BULLOCK [facility] Type 2 diabetes mellitus without complication Active 756644834 [facility] SHAW [facility] Environmental Allergies (ICD-9-CM 477.9) Inactive 477.9 Dec 18, 2017 PADMA LONG [facility] External hemorrhoids without mention of complication (ICD-9- CM 455.3) Inactive 455.3 Dec 18, 2017 PADMA LONG [facility] Impotence of organic origin (ICD-9-CM 607.84) Inactive 607.84 Dec 18, 2017 PADMA LONG [facility] Screening for Lipoid disorders (ICD-9-CM V77.91) Inactive V77.91 Jan 18, 2007 [facility] Stye * (ICD-9-CM 373.11) Inactive 373.11 Dec 18, 201 8 Jan 18, 2007 Entered By: PADMA LONG Comment: bilat lower lids, chronic/recurrent PADMA LONG [facility] Tobacco Use Disorder, Continuous Inactive 305.1 Dec 18, 2017 Jan 18, 2007 Entered By: PADMA LONG Comment: one ppd PADMA LONG [facility] Radiology Reports: +/- 30 days of the encounter No Data Provided for This Section Pathology Reports: +/- 30 days of the encounter No Data Provided for This Section Encounter Notes: All associated encounter notes This section contains the clinical notes associated to the Encounter. Date/Time Encounter Note(s) Provider Source Oct 23, 2019 09:46 AM NONVA CONSULT: LOCAL TITLE: COMMUNITY CARE CONSULT RESULTS NOTE [place] STANDARD TITLE: NONVA CONSULT DATE OF NOTE: OCT 23, 2019@09:46 ENTRY DATE: OCT 23, 2019@09:46:27 AUTHOR: MATHEW KRUGER EXP COSIGNER: URGENCY: STATUS: COMPLETED The following Non VA Care consult has been completed. See scanned document for report. NON VA Care Consult Results Radiology Comment: COMMUNITY CARE-CT/[facility]/10/07/2019 /gisell/ AIMEE KRUGER MSA Signed: 10/23/2019 09:47 AMIEE KRUGER [facility]
--- OUTSIDE RECORDS SUMMARY | 2019-11-11 02:18 | XMS REPORT | Encounter Summary ---
[facility] Affai Address [address] [place] [address] Phone Unavailable Care Team Providers Care Supervisor Assembly Department Name Role Phone ADRIEL HERNANDEZ PCP Unavailable Insurance Providers: All historical and current No Data Provided for This Section Selected Encounter This section includes the information on record at [place] for the Encounter. Date/Time Encounter Type Encounter Description Reason Provider Source Sep 23, 2019 11:30 AM OFFICE/OUTPATIENT VISIT EST PRIMARY CARE/M EDICINE ICD-10-CM B35.1 Tinea unguium with Provider Comments: Tinea Unguium ADRIEL HERNANDEZ [facility] IHE Encounter Template Text not used by [place] Assessments - Encounter Diagnoses This section includes the primary and secondary diag noses documented for the Encounter. Date/Time Primary/Secondary Diagnosis Diagnosis Name Provider Source Sep 23, 2019 12:07 PM PRIMARY Tinea unguium CHERRIE JONES [facility] Sep 23, 2019 12:07 PM SECONDARY Unspecified mycosis KEVIN JONES [facility] Plan of Treatment: Future Appointments (+ 6 months) and Future Tests (+/- 45 day s) The Plan of Treatment section includes future care activities for the patient fr om all [place] treatment facilities. This section includes future appointments and fu ture orders which are active, pending or scheduled. Future Appointments This section includes appointments that were scheduled t o occur 6 months from the date of the Encounter, up to a maximum of 20 appointme nts. The data comes from all [place] treatment facilities. Appointment Date/Time Appointment Type Appointment Facili ty Name Oct 07, 2019 09:15 AM AMBULATORY - NONE [facility] Dec 31, 2019 11:00 AM AMBULATORY - NONE ARTUR BLAS [facility] Dec 31, 2019 01:15 PM AMBULATORY - MEDICINE [facility]UR BLAS [facility] Jan 01, 2020 09:00 AM AMBULATORY - MEDICINE [facility] BLAS [facility] Jan 27, 2020 01:00 PM AMBULATORY - MEDICINE [facility] Surgical Procedures: All associated to the encounter No Data Provided for This Section Lab Results: +/- 30 days of the encounter This section includes the Chemistry and Hematology Lab R esults on record with [place] for the patient. Radiology Reports and Pathology [...] Negative Sep 23, 2019 10:56 AM [facility] MICROALBUMIN (ANANT,WI) RANDO M URINE Specimen Type: URINE Comment: Microalbumin is below the linearity of the instrument, unable to calculate the albumin/creatinine ratio. *MICROALBUMIN,RAND < 5 ug/mL *MICROALB/CREAT canc mcg/mg cr *UR PROTEIN < 6.8 mg/dL *UR CREATININE 37.4 mg/dL Not Available Sep 23, 2019 10:56 AM [facility] COMPREHENSIVE METABOLIC PA KELLE Specimen Type: PLASMA [...] >60 Sep 23, 2019 10:56 AM [facility] CBC & DIFF Specimen Type: BLOOD No [...] Signs: All taken on the encounter date This section contains inpatient and outpatient Vital Signs collected on the date of the Encounter. Date/Time Temperature Pulse Blood Pressure Respiratory Rate SP02 Pa in Height Weight Body Mass Index Source Sep 23, 2019 12:02 PM 0 [facility] Sep 23, 2019 11:39 AM 98.3 F 86 /min 113/73 mm[Hg] 18 /min 96 % 71 in 218 lb 30 [facility] Immunizations: All administered on the encounter date No Data Provided for This Section Social History: Smoking Status (Most current) and Tobacco Use (All prior to enco unter date) This section includes the most current, and the historical, smoking and tobacco- related health factors from the [place] facility where the Encounter took place. Current Smoking Status This section includes the most current smoking, or tobacco -related health factor, from the [place] facility where the Encounter took place. Date/Time Current Smoking Status Comment Facility Nov 23, 2017 09:51 AM TOBACCO USER OFFERED MEDS [facility] Tobacco Use History This section includes a history of the smoking, or tobacco -related health factors, that were collected on or before the date of the Encoun ter. The data comes from the [place] facility where the Encounter took place. Date/Time Smoking Status/Tobacco Use Comment [facility] Nov 23, 2017 09:51 AM CURRENT TOBACCO USER (READY TO QUIT) [facility] Nov 23, 2017 09:51 AM TOBACCO CESSATION REFERRAL DECLINED [facility] Nov 23, 2017 09:51 AM TOBACCO USER OFFERED MEDS [facility] Dec 18, 2016 08:55 AM NON-TOBACCO USER [facility] Dec 01, 2005 08:32 AM CURRENT NON-SMOKER [facility] Dec 01, 2005 08:32 AM LIFETIME NON-SMOKER [facility] Dec 01, 2005 08:32 AM LIFETIME NON-TOBACCO USER [facility] Dec 01, 2005 08:32 AM NON-SMOKER [facility] Dec 01, 2005 08:32 AM NON-TOBACCO USER [facility] Advance Directives: All historical and current No Data Provided for This Section Allergies and Adverse Reactions (ADRs): All historical and current Section Date Range: From patient's date of to the date document was create d. This section includes Allergies and Adverse Reactions (ADR s) [place] with [place] for [place]. The data comes from a ll [place] treatment facilities. It does not list Allergies/ADRs that were removed or entered in error. Some allergies/ADRs may be reported in t he Immunization section. Allergen Event Date Event Type Reaction(s) Severity Source BRILINTA September 08, 2014 Propensity to adverse reactions to drug (diso rder) [facility] 15 PLAVIX September 08, 2014 Propensity to adverse reactions to drug (diso rder) [facility] 15 Medications: [facility] dispensed (-15 months) [...] care team. The data comes from all [place] treatment facilities. Glossary of Pharmacy Terms:Active = A prescription that can be filled at the local [place] pharmacy.Active: On Hold = An active prescription that will not be filled until pharmacy resolves the issue.Active: Susp = An active prescription that is not scheduled to be filled yet.Clinic Order = A medication received during a visit to a [place] clinic or emergency department (currently not available).Discontinued [...] may be a prescription from either the [place] or other providers that was filled outside the [place]. Or, it may be an over the [...] TEST BLOOD GLUCOSE 50 Dec 19, 2019 [id number] September 04, 2019 PAMELA RAMSEY ACCU-CHEK CHARLES PLUS (GLUCOSE) TEST STRIP Discontinued USE 1 STRIP FOR TESTING TWO TIMES PER WEEK - DIRECTED TO TEST BLOOD GLUCOSE 50 Jul 25, 2019 [id number] Nov 12, 2018 PAMELA RAMSEY ALBUTEROL SO4 90MCG/ACTUAT (CFC-F) INHL,ORAL,6.7GM Active INHALE 2 PUFFS BY ORAL INHALATION EVERY 4 HOURS NEEDED FOR BREATHING. SHAKE WELL. RINSE MOUTHPIECE FREQUENTLY TO PREVENT CLOGGING. USE NEEDED FOR SHORTNESS OF AIR/WHEEZING FOR BREATHING. SHAKE WELL. RINSE MOUTHPIECE FREQUENTLY TO PREVENT CLOGGING. USE NEEDED FOR SHORTNESS OF AIR/WHEEZING 1 Dec 19, 2019 [id number] September 04, 2019 PAMELA RAMSEY CBGUILLERMO ALCOHOL PREP PAD Active USE 1 PAD ON SKIN BIW TO CLEAN AND DISINFECT THE SKIN 200 Sep 29, 2020 [id number] Sep 30, 2019 MAURICIO RANKIN ALCOHOL PREP PAD Discontinued USE 1 PAD ON SKIN BI W TO CLEAN AND DISINFECT THE SKIN 200 Dec 19, 2019 [id number] Jun 06, 2019 PAMELA RAMSEY ALCOHOL PREP PAD Discontinued USE 1 PAD ON SKIN BI W TO CLEAN AND DISINFECT THE SKIN 200 Jul 25, 2019 [id number] Nov 12, 2018 PAMELA RAMSEY ASPIRIN 25MG/DIPYRIDAMOLE 200MG CAP,SA Active T CHAPIN 1 CAPSULE BY MOUTH TWO TIMES A DAY - SWALLOW WHOLE. DO NOT CRUSH OR CHEW. FOR RECURRENT TIA/STROKE 180 Dec 19, 2019 [id number] Dec 20, 2018 PAMELA RAMSEY ASPIRIN 25MG/DIPYRIDAMOLE 200MG CAP,SA Discontinued T CHAPIN 1 CAPSULE BY MOUTH TWO TIMES A DAY - SWALLOW WHOLE. DO NOT CRUSH OR CHEW. FOR RECURRENT TIA/STROKE 180 Feb 06, 2019 [id number] Sep 28, 2018 ZACHARY GRECO [facility] ASPIRIN 81MG TAB,EC Non- [place] TAKE ONE TABLET BY MOUTH ONCE A DAY Non-VA Documented by: PADMA LONG nted at: PRIMITIVO NESS ATORVASTATIN CA 80MG TAB Active TAKE ONE TABLET BY MOUTH AT BEDTIME FOR CHOLESTEROL - REPORT ANY UNEXPLAINED MUSCLE PAIN/WEAKNESS TO YOUR PROVIDER 90 Dec 19, 2019 [id number] September 04, 2019 PAMELA RAMSEY ATORVASTATIN CA 80MG TAB Discontinued TAKE ONE TABLET BY MOUTH AT BEDTIME FOR CHOLESTEROL - REPORT ANY UNEXPLAINED MUSCLE PAIN/WEAKNESS TO YOUR PROVIDER 90 Dec 20, 2018 [id number] Nov 12, 2018 PAMELA RAMSEY BUDESONIDE 160MCG/FORMOTEROL FUM 4.5MCG/SPRAY INHL,ORAL,10.2 GM Active INHALE 2 PUFFS BY MOUTH TWO TIMES A DAY FOR BREATHING. SHAKE WELL. RINSE MOUTH AND SPIT AFTER EACH USE. 3 Apr 24, 2020 [id number] August 22, 2019 LISSA OATES [facility] CALCIUM/VITAMIN D TAB No n-VA TAKE BY MOUTH ONCE A DAY Non-V A Documented by: PADMA LONG nted at: PRIMITIVO NESS CARBOXYMETHYLCELLULOSE NA 0.5% SOLN,OPH Active INSTILL ONE DROP IN BOTH EYES FOUR TIMES A DAY FOR DRY EYES 15 Feb 01, 2020 [id number] September 03 0 NEDA SHAW [facility] DICLOFENAC NA 1% GEL,TOP Discontinued APPLY 2 GRAMS A FFECTED AREA TWO TIMES A DAY NEEDED FOR PAIN AND INFLAMMATION. DO NOT EXCEED 16GM DAILY TO ANY AFFECTED JOINT OF LOWER EXTREMITIES. DO NOT EXCEED 8GM DAILY TO ANY AFFECTED JOINT OF UPPER EXTREMITES. DO NOT EXCEED TOTAL DOSE OF 32GM DAILY FOR ALL JOINTS. 100 Oct 31, 2018 [id number] Oct 06, 2018 ANAYELI KIRKPATRICK [facility] DICLOFENAC NA 1% GEL,TOP APPLY 2 GRAMS A FFECTED AREA TWO TIMES A DAY NEEDED FOR PAIN AND INFLAMMATION. DO NOT EXCEED 16GM DAILY TO ANY AFFECTED JOINT OF LOWER EXTREMITIES. DO NOT EXCEED 8GM DAILY TO ANY AFFECTED JOINT OF UPPER EXTREMITES. DO NOT EXCEED TOTAL DOSE OF 32GM DAILY FOR ALL JOINTS. 100 Jan 17, 2019 [id number] Dec 20, 2018 PAMELA RAMSEY FLUTICASONE PROPIONATE 50MCG/SPRAY SOLN,NASAL,16GM Active INSTILL 1 SPRAY IN EACH NOSTRIL ONCE A DAY SHAKE GENTLY BEFORE USE! - MUST BE USED DIRECTED FOR 3 WEEKS TO PROVIDE BENEFIT. * NO EARLY REFILLS * 1UNIT = 30DAYS AT 4 PF/DAY OR 60DAYS AT 2PF/DAY 2 Dec 19, 2019 [id number] August 26, 2019 PAMELA RAMSEY KETOTIFEN 0.025% SOLN,OPH Active INSTILL 1 DROP IN BOTH EYES TWO TIMES A DAY FOR RELIEF OF ALLERGY SYMPTOMS IN EYE(S) Feb 01, 2020 [id number] September 04, 2019 NEDA SHAW [facility] LANCET,SOFTCLIX Active USE LANCET BIW FOR TESTING BL OOD GLUCOSE DIRECTED Sep 29, 2020 [id number] Sep 30, 2019 [facility]ANK[facility] LANCET,SOFTCLIX Discontinued USE LANCET BIW FO R TESTING BLOOD GLUCOSE DIRECTED Dec 19, 2019 [id number] Jun 06, 2019 [facility]ELA RAMSEY [facility] LANCET,SOFTCLIX Discontinued USE LANCET BIW FO R TESTING BLOOD GLUCOSE DIRECTED Jul 25, 2019 [id number] Nov 12, 2018 PAMELA RAMSEY LISINOPRIL 40MG TAB Non- [place] TAKE ONE-HALF TABLET BY MOUTH EVERY MORNING Non-VA Documented by: PAMELA RAMSEY nted at: PRIMITIVO NESS LORATADINE/PSEUDOEPHEDRINE TAB,SA Non-VA TAKE BY MOUTH No n-VA Documented by: JUAN LANG nted at: ARTUR BLAS [facility] MAGNESIUM OXIDE 250MG TAB Non-VA TAKE [...] ACID (REPLACES ACIPHEX) 180 Dec 19, 2019 [id number] August 26, 2019 PAMELA RAMSEY POTASSIUM GLUCONATE TAB Non-VA TAKE 595MG BY MOUTH ONCE A DAY Non-VA Documented by: PADMA LONG Docume nted at: PRIMITIVO NESS PRASUGREL HCL 10MG TAB N on-VA TAKE ONE TABLET BY MOUTH ONCE A DAY Non-VA Documented by: KATHERINE MATT Docume nted at: [facility] PREGABALIN 150MG CAP,ORAL Non-VA TAKE 1 CAPSULE [...] ANAYELI KIRKPATRICK Docume nted at: ARTUR BLAS [facility] TERBINAFINE HCL 1% CREAM,TOP Active APPLY LIGHT LY TO AFFECTED AREA TWO TIMES A DAY FOR INFECTION Sep 23, 2020 [id number] Sep 24, 2019 ADRIEL HERNANDEZ UREA 20% CREAM,TOP Active APPLY LIGHTLY (20%) TO AFFECTED AREA TWO TIMES A DAY NEEDED TO PROMOTE HEALING,RUB IN UNTIL COMPLETELY ABSORBED*FOR TOPICAL USE ONLY* APPLY TO BOTH FEET DIRECTED. Sep 25, 2020 [id number] Sep 26, 2019 ADRIEL HERNANDEZ Problems (Conditions): All historical and current Section Date Range: From patient's date of to the date document was create d. This section includes a list of Problems (Conditions) know n to [place] for the [place]. It includes both active and inacti ve problems (conditions). The data comes from all [place] treatment facilities. Problem Status Problem Code Date of Onset Date of Resolution Comm ent(s) Provider Source Alcohol intake above recommended sensible limits Active 293340406 PADMA LONG [facility] Allergic conjunctivitis Active [id number] [facility] Bilateral senile combined form cataracts of eyes Active 68183802243 9[address] [place] Lares [facility] Bilateral tinnitus Active 5336834245033 CHASTITY JEAN Nicol [facility] Coronary arteriosclerosis Active 79021697 September 08, 2014 Entered By: PADMA LONG Comment: hx of ptca to RCA several yrs. agoSeptember 08, 2014 Entered By: PADMA LONG Comment: heart cath 09/01/14, neg. / previous stent to RCA,, via [facility] KALA JONES [facility] Diabetes mellitus Active 27068020 PAMELA RAMSEY [facility] Disorder of pancreas Active 3836181 September 08, 2014 Entered By: PADMA LONG Comment: 2.5cm low density lseion in bodyMay 2014 Entered By: PADMA LONG Comment: question of communication with pancreatic ductMay 2014 Entered By: PADMA LONG Comment: favored to be cystic pancreatic cancerMay 2014 Entered By: PADMA LONG Comment: per abdominal CT 09/01/14, [facility] PADMA LONG [facility] Dry eyes Active 457118504 [facility] Gastro-esophageal reflux disease without esophagitis ( SNOMED CT 726264130) Active 631052078 ALF GUEVARA [facility] Hyperlipidemia (SNOMED CT 41741860) Active 63534451 PAMELA RAMSEY [facility] Lung mass Active 146564641 September 08, 2014 E ntered By: PADMA [...] mod. differentiated bronchogenic adenoca. 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 Active 82704757 KATHERINE MATT [facility] Obesity Active 529891707 [facility] Obstructive sleep apnea syndrome (SNOMED CT 15304647) Active 276934 015 [place] [facility] Pancreatic cyst Active 57587236 JAYLENE GUEVARA [facility] Papilloma of right eyelid Active [id number] NEDA SHAW [facility] Polyp of colon Active 18808679 Jan 23 Entered By: PADMA LONG Comment: c-scope 01/17/16, multiple benign colonic polypsJun 28, 2017 Entered By: PADMA LONG Comment: c-scope,06/25/17,[facility], three benign polyps- sigmoid colon, transverse colon,cecum. see path report cprs SHARRON TORRES [facility] Pulmonary emphysema Active 20808401 0 BRIANA GAVIN [facility] Sensorineural hearing loss, bilateral Active 537436916 CHASTITY JEAN [facility] Snoring Active 46909036 SONG BULLOCK [facility] Type 2 diabetes mellitus without complication Active 083967035 NEDA SHAW [facility] Environmental Allergies (ICD-9-CM 477.9) Inactive 477.9 Dec 18, 2017 PADMA LONG [facility] External hemorrhoids without mention of complication (ICD-9- CM 455.3) Inactive 455.3 Dec 18, 2017 PADMA LONG [facility] Impotence of organic origin (ICD-9-CM 607.84) Inactive 607.84 Dec 18, 2017 PADMA LONG [facility] Screening for Lipoid disorders (ICD-9-CM V77.91) Inactive V77.91 Jan 18, 2007 PADMA LONG [facility] Stye * (ICD-9-CM 373.11) Inactive 373.11 Dec 18, 201 8 Jan 18, 2007 Entered By: PADMA LONG Comment: bilat lower lids, chronic/recurrent PADMA LONG [facility] Tobacco Use Disorder, Continuous Inactive 305.1 Dec 18, 2017 Jan 18, 2007 Entered By: PADMA LONG Comment: one ppd PADMA LONG [facility] Radiology Reports: +/- 30 days of the encounter No Data Provided for This Section Pathology Reports: +/- 30 days of the encounter No Data Provided for This Section Encounter Notes: All associated encounter notes This section contains the clinical notes associated to the Encounter. Date/Time Encounter Note(s) Provider Source Sep 23, 2019 12:06 PM MEDICATION MGT NOTE: LOCAL TITLE: WI-MEDICATION RECONCILIATION (BP,O) STANDARD TITLE: MEDICATION MGT NOTE DATE OF NOTE: SEP 23, 2019@12:06 ENTRY DATE: SEP 23, 2019@12:06:21 AUTHOR: ADRIEL HERNANDEZ: URGENCY: STATUS: COMPLETED MEDICATION RECONCILIATION Allergies: PLAVIX, BRILINTA Allergies reviewed, edited in CPRS as appropriate and confirmed by patient: Yes Active Outpatient Medications (including Supplies): Outpatient Medications Status = 1) ACCU-CHEK CHARLES PLUS(GLUCOSE) TEST STRIP USE 1 STRIP ACTIVE FOR TESTING TWO TIMES PER WEEK - DIRECTED TO TEST BLOOD GLUCOSE 2) ALBUTEROL 90MCG (CFC-F) 200D ORAL INHL INHALE 2 PUFFS ACTIVE BY ORAL INHALATION EVERY 4 HOURS NEEDED FOR BREATHING. SHAKE WELL. RINSE MOUTHPIECE FREQUENTLY TO PREVENT CLOGGING. USE NEEDED FOR SHORTNESS OF AIR/WHEEZING 3) ALCOHOL PREP PAD USE 1 PAD ON SKIN TWICE A WEEK TO ACTIVE CLEAN AND DISINFECT THE SKIN 4) ASPIRIN 25MG/DIPYRIDAMOLE 200MG SA CAP TAKE 1 CAPSULE ACTIVE BY MOUTH TWO TIMES A DAY - SWALLOW WHOLE. DO NOT CRUSH OR CHEW. FOR RECURRENT TIA/STROKE 5) ATORVASTATIN CALCIUM 80MG TAB TAKE ONE TABLET BY ACTIVE MOUTH AT BEDTIME FOR CHOLESTEROL - REPORT ANY UNEXPLAINED MUSCLE PAIN/WEAKNESS TO YOUR PROVIDER 6) BUDESONIDE 160/FORMOTER 4.5MCG 120D INH INHALE 2 ACTIVE PUFFS BY MOUTH TWO TIMES A DAY FOR BREATHING. SHAKE WELL. RINSE MOUTH AND SPIT AFTER EACH USE. 7) CARBOXYMETHYLCELLULOSE 0.5% SOLN,OPH INSTILL 1 DROP ACTIVE IN BOTH EYES FOUR TIMES A DAY FOR DRY EYES 8) FLUTICASONE PROP 50MCG 120D NASAL INHL INSTILL 1 ACTIVE SPRAY IN EACH NOSTRIL ONCE A DAY SHAKE GENTLY BEFORE USE! - MUST BE USED DIRECTED FOR 3 WEEKS TO PROVIDE BENEFIT. * NO EARLY REFILLS * 1UNIT = 30DAYS AT 4 PF/DAY OR 60DAYS AT 2PF/DAY 9) KETOTIFEN 0.025% OPH SOLN INSTILL 1 DROP IN BOTH EYES ACTIVE TWO TIMES A DAY FOR RELIEF OF ALLERGY SYMPTOMS IN EYE(S) 10) LANCET,SOFTCLIX USE LANCET TWICE A WEEK FOR ACTIVE TESTING BLOOD GLUCOSE DIRECTED 11) OMEPRAZOLE 20MG EC CAP TAKE TWO CAPSULES BY MOUTH ACTIVE BEFORE BREAKFAST 30 MINUTES BEFORE EATING TO LOWER STOMACH ACID (REPLACES ACIPHEX) Non-VA Medications Status = 1) Non-VA ASPIRIN 81MG EC TAB 81MG MOUTH ONCE A DAY ACTIVE 2) Non-VA CALCIUM/VITAMIN D TAB MOUTH ONCE A DAY ACTIVE 3) Non-VA LISINOPRIL 40MG TAB 20MG MOUTH EVERY MORNING ACTIVE 4) Non-VA LORATADINE/PSEUDOEPHEDRINE TAB,SA MOUTH ACTIVE 5) Non-VA MAGNESIUM OXIDE 250MG TAB 250MG MOUTH ONCE A ACTIVE DAY 6) Non-VA MONTELUKAST NA 10MG TAB 10MG MOUTH EVERY ACTIVE EVENING 7) Non-VA POTASSIUM GLUCONATE TAB 595MG MOUTH ONCE A DAY ACTIVE 8) Non-VA PRASUGREL HCL 10MG TAB 10MG MOUTH ONCE A DAY ACTIVE 9) Non-VA PREGABALIN 150MG ORAL CAP 150MG MOUTH TWO ACTIVE TIMES A DAY 10) Non-VA SEMAGLUTIDE INJ,SOLN SUBCUTANEOUSLY EVERY ACTIVE WEEK 21 Total Medications Compared newly ordered medications and medication changes to active medications and non-VA medications, and then reviewed medications with patient and/or caregiver. All discrepancies noted and reconciled. Patients, or caregivers, was provided with reconciled medications list and advised to provide to all non VA providers. Potential adverse reactions of new medications were discussed with the patient. Patient/family/caregiver educated and evaluated for understanding on Medications. The list was reviewed with and given to the patient/family/caregiver who were also educated on importance of sharing medication list with all [place] providers and non-VA providers. For questions, please call your team nurse. Pertinent lab reviewed: N/A. Level of Understanding: Unable to assess Comments: /gisell/ ADRIEL HERNANDEZ [facility]- Signed: 09/23/2019 12:06 ADRIEL HERNANDEZ [facility] Sep 23, 2019 12:01 PM PRIMARY CARE PHYSICIAN OUTPA MOYNT NOTE: LOCAL TITLE: OR-GENERAL/PRIMARY CARE STANDARD TITLE: PRIMARY CARE PHYSICIAN OUTPATIENT NOTE DATE OF NOTE: SEP 23, 2019@12:01 ENTRY DATE: SEP 23, 2019@12:01:11 AUTHOR: ADRIEL HERNANDEZ EXP COSIGNER: URGENCY: STATUS: COMPLETED WI-PAIN: Pain Reassessment-Patient's updated pain score after intervention is: PAIN Score 0 Pain Documentation: Pain level 3 or less. s. pt. [facility] with cc of toenail fungus, onset for several months, pt. states he has tried over the counter tx. without success o. affect=pleasant skin=w/d, afebrile toenails=great toes bilat. have heavy amt. fungus, the other toes bilat. feet have mild to mod. amt. fungus assessment/plan: tinea/mycosis, toenails all, both feet, ordered lamisil cm. to apply as directed, soak feet as pt. is already doing in warm water and epson salt, he can also apply vicks, will also order urea cm. to apply to bilt. feet, will consider podiatry consult at later date, he is to let us know in a few months if this tx. plan is working rtc as needed /gisell/ ADRIEL EUGENE Signed: 09/23/2019 12:06 [facility] HERNANDE[facility] Sep 23, 2019 11:12 AM NURSING OUTPATIENT NOTE: LOCAL TITLE: WI-NURSE/[facility] STANDARD TITLE: NURSING OUTPATIENT NOTE DATE OF NOTE: SEP 23, 2019@11:12 ENTRY DATE: SEP 23, 2019@11:34:17 AUTHOR: RAFI THOMSON COSIGNER: URGENCY: STATUS: COMPLETED Reason for appointment: PCP Appointment Reason for appointment: Acute illness toe fungus Is the patient diabetic? Yes - patient is a diabetic. Last HGBA1c value and time done: today 118 HGBA1c < 7, repeat in 6 months HGBA1c > 7, repeat in 3 months What is your goal for today's visit? *Required Is there anything in your life that worries or stresses you that we may assist you with today? *Required No Are you registered for [employer]? No - Are you interested in registering? No If 'yes' please hand [employer] brochure. WI-FOOT EXAM (PAVE): Foot Assessment VISUAL INSPECTION: Includes inspection for skin breaks, deformity, erythema, trauma, pallor on elevation, dependent rubor, nail deformities, extensive callus and pitting edema. Right Foot Abnormal Nail Deformities Extensive Callus Pitting Edema Left Foot Abnormal Nail Deformities Extensive Callus Pitting Edema PEDAL PULSES: Includes palpation of dorsalis and posterior tibial pulses and signs/symptoms of vascular compromise like pain, pallor, paresthesia or paralysis. Right Foot Abnormal Palpation Left Foot Abnormal Palpation SENSORY EXAM: Includes light tough, pin-prick, vibratory or monofilament test of sensation. Right Foot Normal sensation to monofilament Left Foot Normal sensation to monofilament LEVEL "1" (LOW RISK) Normal sensation or circulation No deformity No ulceration or history of amputation Homelessness/Food Insecurity Screen: In the past 2 months, have you been living in stable housing that you own, rent, or stay in as part of a household? Yes - Living in stable housing. Are you worried or concerned that in the next 2 months you may NOT have stable housing that you own, rent, or stay in as part of a household? No - Not worried about housing near future In the past three months did you ever run out of food and you were not able to access more food or have the money to buy more food? No - No Food shortage WI-PAIN: Pain Documentation: Pain level 3 or less. Alcohol Use Screen (AUDIT-C): Alcohol Screen: SCREEN FOR ALCOHOL (AUDIT-C) An alcohol screening test (AUDIT-C) was negative (score=1). 1. How often did you have a drink containing alcohol in the past year? Monthly or less 2. How many drinks containing alcohol did you have on a typical day when you were drinking in the past year? 1 or 2 3. How often did you have six or more drinks on one occasion in the past year? Never WI-WEIGHT MGMT MOVE: Based on BMI of 31.3, patient qualifies for MOVE! program. MOVE! Education: - Provided patient with MOVE! handout. Discussed patient's current BMI and the MOVE! Program including program features-MOVE! Intro, MOVE! Forward and MOVE! Support Group. - Discussed health risks associated with obestiy, ie. risk of premature and numerous medical conditions such as, heart disease, stroke, type II diabetes, hyptertension, gallbladder disease, joint disease and certain cancers. - Patient is medically cleared to participate in the MOVE! Program as physical activity components of MOVE! Program can be adapted for 's physical abilities. 'MOVE!' Screening: Patient offered and declines referral to M[facility]! Weight Management Program at this time. Depression Screening: PHQ-2+I9 Depression Screening Score: 0 The score on this administration is 0, which indicates a negative screen on the Depression Scale over the past two weeks. Suicide Screening Score: 0 The results of this administration indicates a NEGATIVE primary screen for Risk of Suicide over the last 2 weeks. Over the past two weeks, how often have you been bothered by the following problems? 1. Little interest or pleasure in doing things Not at all 2. Feeling down, depressed, or hopeless Not at all 3. Thoughts that you would be better off or of hurting yourself in some way Not at all /gisell/ RAFI THOMSON LPN Signed: 09/23/2019 11:39 RAFI THOMSON [facility]
--- OUTSIDE RECORDS SUMMARY | 2019-11-11 02:18 | XMS REPORT | Encounter Summary ---
Author [facility] Affai rs Address [address] [place] [address] Phone Unavailable Care Team Providers Care Administrative Library Assistant Name Role Phone ADRIEL HERNANDEZ PCP Unavailable Insurance Providers: All historical and current No Data Provided for This Section Selected Encounter This section includes the information on record at [place] for the Encounter. 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 This section includes future appointments and fu ture orders which are active, pending or scheduled. Future Appointments This section includes appointments that were scheduled t o occur 6 months from the date of the Encounter, up to a maximum of 20 appointme nts. The data comes from all [place] treatment [facility]. Appointment Date/Time Appointment Type Appointment Facili ty Name Sep 23, 2019 11:15 AM AMBULATORY - NONE [facility] Sep 23, 2019 11:30 AM AMBULATORY - MEDICINE [facility] Oct 07, 2019 09:15 AM AMBULATORY - NONE [facility] BRYAN ROQUE Dec 31, 2019 11:00 AM AMBULATORY - NONE [facility] C Dec 31, 2019 01:15 PM AMBULATORY - MEDICINE [facility] Jan 01, 2020 09:00 AM AMBULATORY - MEDICINE ARTUR BLAS [facility] Jan 27, 2020 01:00 PM AMBULATORY - MEDICINE [facility] Surgical Procedures: All associated to the [...] and tobacco- related health factors from the NM facility where the Encounter took place. Current Smoking Status This section includes the most current smoking, or tobacco -related health factor, from the NM facility where the Encounter took place. Date/Time Current Smoking Status Comment Facility Jun 26, 2018 02:13 PM NM-TOBACCO QUIT 15 YRS OR MORE PORSHA BLAS [facility] Tobacco Use History This section includes a history of the smoking, or tobacco -related health factors, that were collected on or before the date of the Encoun ter. The data comes from the NM facility where the Encounter took place. Date/Time Smoking Status/Tobacco Use Comment Facil it Jun 26, 2018 02:13 PM NM-TOBACCO QUIT 15 YRS OR MORE PORSHA BLAS [facility] Jun 27, 2017 01:39 PM NON-TOBACCO USER ARTUR Mi Jun 27, 2017 01:16 PM NON-TOBACCO USER [facility] Jan 06, 2015 02:07 PM NON-TOBACCO USER [facility] Nov 23, 2014 10:38 AM NON-TOBACCO USER [facility] Oct 26, 2014 10:36 AM NON-TOBACCO USER [facility] Oct 14, 2014 11:09 AM NON-TOBACCO USER [...] patient. The data comes from a ll [place] treatment facilities. It does not list Allergies/ADRs that were removed or entered in error. Some allergies/ADRs may be reported in t he Immunization section. Allergen Event Date Event Type Reaction(s) Severity Source BRILINTA September 08, 2014 Propensity to adverse reactions to drug (diso rder) [facility] PLAVIX September 08, 2014 Propensity to adverse reactions to drug (diso rder) [facility], [facility] 15 Medications: VA dispensed (-15 months) and Non-VA Documented (Obtained Outside A) Section Date Range: 1) prescriptions processed by a VA pharmacy in the last 15 m [facility], and 2) all medications recorded in the NM medical record as "non-VA medic ations". Pharmacy terms refer to NM pharmacy's work on prescriptions. VA patient s are advised to take their medications as instructed by their health care team. The data comes from all [place] treatment facilities. Glossary of Pharmacy Terms:Active = A prescription that can be filled at the local [place] pharmacy.Active: On Hold = An active prescription that will not be filled until pharmacy resolves the issue.Active: Susp = An active prescription that is not scheduled to be filled yet.Clinic Order = A medication received during a visit to a NM clinic or emergency department (currently not available).Discontinued [...] may be a prescription from either the [place] or other providers that was filled outside the [place]. Or, it may be an over the [...] TEST BLOOD GLUCOSE 50 Dec 19, 2019 [id number] September 04, 2019 PAMELA RAMSEY ACCU-CHEK CHARLES PLUS (GLUCOSE) TEST STRIP Discontinued USE 1 STRIP FOR TESTING TWO TIMES PER WEEK - DIRECTED TO TEST BLOOD GLUCOSE 50 Jul 25, 2019 [id number] Nov 12, 2018 PAMELA RAMSEY CBGUILLERMO ALBUTEROL SO4 90MCG/ACTUAT (CFC-F) INHL,ORAL,6.7GM Active INHALE 2 PUFFS BY ORAL INHALATION EVERY 4 HOURS NEEDED FOR BREATHING. SHAKE WELL. RINSE MOUTHPIECE FREQUENTLY TO PREVENT CLOGGING. USE NEEDED FOR SHORTNESS OF AIR/WHEEZING FOR BREATHING. SHAKE WELL. RINSE MOUTHPIECE FREQUENTLY TO PREVENT CLOGGING. USE NEEDED FOR SHORTNESS OF AIR/WHEEZING 1 Dec 19, 2019 [id number] September 04, 2019 PAMELA RAMSEY CBGUILLERMO ALCOHOL PREP PAD Active USE 1 PAD ON SKIN BIW TO CLEAN AND DISINFECT THE SKIN 200 Sep 29, 2020 [id number] Sep 30, 2019 MAURICIO RANKIN [facility] ALCOHOL PREP PAD Discontinued USE 1 PAD ON SKIN BI W TO CLEAN AND DISINFECT THE SKIN 200 Dec 19, 2019 [id number] Jun 06, 2019 PAMELA RAMSEY ALCOHOL PREP PAD Discontinued USE 1 PAD ON SKIN BI W TO CLEAN AND DISINFECT THE SKIN 200 Jul 25, 2019 [id number] Nov 12, 2018 PAMELA RAMSEY CBGUILLERMO ASPIRIN 25MG/DIPYRIDAMOLE 200MG CAP,SA Active T CHAPIN 1 CAPSULE BY MOUTH TWO TIMES A DAY - SWALLOW WHOLE. DO NOT CRUSH OR CHEW. FOR RECURRENT TIA/STROKE 180 Dec 19, 2019 [id number] Dec 20, 2018 PAMELA RAMSEY ASPIRIN 25MG/DIPYRIDAMOLE 200MG CAP,SA Discontinued T CHAPIN 1 CAPSULE BY MOUTH TWO TIMES A DAY - SWALLOW WHOLE. DO NOT CRUSH OR CHEW. FOR RECURRENT TIA/STROKE 180 Feb 06, 2019 [id number] Sep 28, 2018 ZACHARY GRECO [facility] ASPIRIN 81MG TAB,EC Non- VA TAKE ONE TABLET BY MOUTH ONCE A DAY Non-VA Documented by: PADMA LONG nted at: PRIMITIVO NESS ATORVASTATIN CA 80MG TAB Active TAKE ONE TABLET BY MOUTH AT BEDTIME FOR CHOLESTEROL - REPORT ANY UNEXPLAINED MUSCLE PAIN/WEAKNESS TO YOUR PROVIDER 90 Dec 19, 2019 [id number] September 04, 2019 PAMELA RAMSEY ATORVASTATIN CA 80MG TAB Discontinued TAKE ONE TABLET BY MOUTH AT BEDTIME FOR CHOLESTEROL - REPORT ANY UNEXPLAINED MUSCLE PAIN/WEAKNESS TO YOUR PROVIDER 90 Dec 20, 2018 [id number] Nov 12, 2018 PAMELA RAMSEY BUDESONIDE 160MCG/FORMOTEROL FUM 4.5MCG/SPRAY INHL,ORAL,10.2 GM Active INHALE 2 PUFFS BY MOUTH TWO TIMES A DAY FOR BREATHING. SHAKE WELL. RINSE MOUTH AND SPIT AFTER EACH USE. 3 Apr 24, 2020 [id number] August 22, 2019 LISSA OATES [facility] CALCIUM/VITAMIN D TAB No n-VA TAKE BY MOUTH ONCE A DAY Non-V A Documented by: PADMA LONG nted at: PRIMITIVO NESS CARBOXYMETHYLCELLULOSE NA 0.5% SOLN,OPH Active INSTILL ONE DROP IN BOTH EYES FOUR TIMES A DAY FOR DRY EYES 15 Feb 01, 2020 [id number] September 03 0 NEDA SHAW [facility] DICLOFENAC NA 1% GEL,TOP Discontinued APPLY 2 GRAMS A FFECTED AREA TWO TIMES A DAY NEEDED FOR PAIN AND INFLAMMATION. DO NOT EXCEED 16GM DAILY TO ANY AFFECTED JOINT OF LOWER EXTREMITIES. DO NOT EXCEED 8GM DAILY TO ANY AFFECTED JOINT OF UPPER EXTREMITES. DO NOT EXCEED TOTAL DOSE OF 32GM DAILY FOR ALL JOINTS. 100 Oct 31, 2018 [id number] Oct 06, 2018 ANAYELI K[facility]ATRICK [facility] [...] FOR ALL JOINTS. 100 Jan 17, 2019 [id number] Dec 20, 2018 PAMELA RAMSEY FLUTICASONE PROPIONATE 50MCG/SPRAY SOLN,NASAL,16GM Active INSTILL 1 SPRAY IN EACH NOSTRIL ONCE A DAY SHAKE GENTLY BEFORE USE! - MUST BE USED DIRECTED FOR 3 WEEKS TO PROVIDE BENEFIT. * NO EARLY REFILLS * 1UNIT = 30DAYS AT 4 PF/DAY OR 60DAYS AT 2PF/DAY 2 Dec 19, 2019 [id number] August 26, 2019 PAMELA RAMSEY KETOTIFEN 0.025% SOLN,OPH Active INSTILL 1 DROP IN BOTH EYES TWO TIMES A DAY FOR RELIEF OF ALLERGY SYMPTOMS IN EYE(S) Feb 01, 2020 [id number] September 04, 2019 NEDA SHAW [facility] LANCET,SOFTCLIX Active USE LANCET BIW FOR TESTING BL OOD GLUCOSE DIRECTED Sep 29, 2020 [id number] Sep 30, 2019 MAURICIO RANKIN LANCET,SOFTCLIX Discontinued USE LANCET BIW FO R TESTING BLOOD GLUCOSE DIRECTED Dec 19, 2019 [id number] Jun 06, 2019 PAMELA RAMSEY LANCET,SOFTCLIX Discontinued USE LANCET BIW FO R TESTING BLOOD GLUCOSE DIRECTED Jul 25, 2019 [id number] Nov 12, 2018 PAMELA RAMSEY LISINOPRIL 40MG [...] ACID (REPLACES ACIPHEX) 180 Dec 19, 2019 [id number] August 26, 2019 PAMELA RAMSEY POTASSIUM GLUCONATE TAB Non-VA TAKE 595MG BY MOUTH ONCE A DAY N on-VA Documented by: PADMA LONG Docume nted at: PRIMIT[facility] NESS PRASUGREL HCL 10MG TAB N on-VA TAKE ONE TABLET BY MOUTH ONCE A DAY Non-VA Documented by: KATHERINE MATT Docume nted at: [facility] PREGABALIN 150MG CAP,ORAL Non-VA TAKE 1 [...] DAY FOR INFECTION 90 Sep 23, 2020 [id number] Sep 24, 2019 ADRIEL HERNANDEZ UREA 20% CREAM,TOP Active APPLY LIGHTLY (20%) TO AFFECTED AREA TWO TIMES A DAY NEEDED TO PROMOTE HEALING,RUB IN UNTIL COMPLETELY ABSORBED*FOR TOPICAL USE ONLY* APPLY TO BOTH FEET DIRECTED. 90 Sep 25, 2020 [id number] Sep 26, 2019 ADRIEL HERNANDEZ Problems (Conditions): All historical and current Section Date Range: From patient's date of to the date document was create d. This section includes a list of Problems (Conditions) know n to VA for the patient. It includes both active and inacti ve problems (conditions). The data comes from all [place] treatment facilities. Problem Status Problem Code Date of Onset Date of Resolution Comm ent(s) Provider Source Alcohol intake above recommended sensible limits Active [id number] PADMA LONG [facility] Allergic conjunctivitis Active 843014080 ARROYO HONDONEDA [facility] Bilateral senile combined form cataracts of eyes Active [id number] 9108 ARROYO HONDONEDA [facility] Bilateral tinnitus Active 1099308076593 CHASTITY JEAN [facility] Coronary arteriosclerosis Active 41744438 September 08, 2014 Entered By: PADMA LONG Comment: hx of ptca to RCA several yrs. agoSeptember 08, 2014 Entered By: PADMA LONG Comment: heart cath 09/01/14, neg. / previous stent to RCA,, via abida meneses ks HATCHER, JENNEY R [facility] Diabetes mellitus Active 02704951 PAMELA RAMSEY [facility] Disorder of pancreas Active 2069355 September 08, 2014 Entered By: PADMA LONG Comment: 2.5cm low density lseion in bodyMay 2014 Entered By: PADMA LONG Comment: question of communication with pancreatic ductMay 2014 Entered By: PADMA LONG Comment: favored to be cystic pancreatic cancerMay 2014 Entered By: PADMA LONG Comment: per abdominal CT 09/01/14, via abida meneses ks FRAZIER, JAY J [facility] Dry eyes Active 405248256 ARROYO HONDONEDA J PORSHA Block [facility] Gastro-esophageal reflux disease without esophagitis ( SNOMED CT 869168775) Active 456734072 ALF AMEZCUA [facility] Hyperlipidemia (SNOMED CT 73079842) Active 54549748 PAMELA RAMSEY [facility] Lung mass Active 427259466 September 08, 2014 E ntered By: PADMA [...] uncertain behavior of skin of eyelid Active 66138654 KATHERINE MATT [facility] Obesity Active 426036597 [facility] Obstructive sleep apnea syndrome (SNOMED CT 82650447) Active 083505 015 EVONNEPHILIPPE [facility] Pancreatic cyst Active 95576902 JAYLENE AMEZCUA [facility] Papilloma of right eyelid Active [id number] NEDA SHAW [facility] Polyp of colon Active 39760803 Jan 23 Entered By: PADMA LONG Comment: c-scope 01/17/16, multiple benign colonic polypsJun 28, 2017 Entered By: PADMA LONG Comment: c-scope,06/25/17,[facility], three benign polyps- sigmoid colon, transverse colon,cecum. see path report cprs SHARRON TORRES [facility] Pulmonary emphysema Active 17072582 0 BRIANA GAVIN [facility] Sensorineural hearing loss, bilateral Active 288786680 CHASTITY JEAN [facility] Snoring Active 54361638 SONG BULLOCK [facility] Type 2 diabetes mellitus without complication Active 919423455 NEDA SHAW [facility] Environmental Allergies (ICD-9-CM 477.9) Inactive 477.9 Dec 18, 2017 PADMA LONG [facility] External hemorrhoids without mention of complication (ICD-9- CM 455.3) Inactive 455.3 Dec 18, 2017 PADMA LONG [facility] Impotence of organic origin (ICD-9-CM 607.84) Inactive 607.84 Dec 18, 2017 PADMA LONG [facility] Screening for Lipoid disorders (ICD-9-CM V77.91) Inactive V77.91 Jan 18, 2007 PADMA LONG [facility] Stye * (ICD-9-CM 373.11) Inactive 373.11 Dec 18, 201 8 Jan 18, 2007 Entered By: PADMA LONG Comment: bilat lower lids, chronic/recurrent [facility]ADMA LONG [facility] Tobacco Use Disorder, Continuous [...] the Encounter. Date/Time Encounter Note(s) Provider Source Aug 07, 2019 10:24 AM GASTROENTEROLOGY PHYSICIAN N OTE: LOCAL TITLE: WI-GASTROENTEROLOGY/FOLLOW-UP STANDARD TITLE: GASTROENTEROLOGY PHYSICIAN NOTE DATE OF NOTE: AUG 07, 2019@10:24 ENTRY DATE: AUG 07, 2019@10:24:39 AUTHOR: ALF AMEZCUA COSIGNER: URGENCY: STATUS: COMPLETED WI-GASTROENTEROLOGY/FOLLOW-UP Has ADDENDA Patient contact using the telephone. S: Patient is a 64 yo M with ho DMII, CAD sp PCI, lung cancer sp lobectomy and adjuvant chemo 2014, dyslipidemia, obesity, AL here for a follow up visit for a pancreatic cyst. COVID-19 Telehealth Service Visit was performed under the "Telehealth Services During Certain Emergency Periods Act of 2019." The patient was given verbal consent to participate in a telehealth connection rather than a [id number] visit in the clinic. The patient was at home and I was in a private office at the [facility] away from the patient with the door securely closed. The visit was conducted using the telephone. He had CT w/wo contrast ordered by Dr. Lam 06/2019 that showed pancreatic cyst appeared stable at about 1.7 cm without obvious PD dilation. He did not come today for MRI of the pancreas and wonders if he needs to have it done. No history of pancreatitis. EUS 07/2018 showed multiple cysts measuring 1.1 x 1.9 mm with largest single component <1 cm and too small for FNA. PD was focally dilated in the head up to 5 mm. Omeprazole seems to not be working as well lately. He has been getting some breakthrough heartburn as well as sometimes waking up feeling as though he is aspirating. Reports that he raises his bed 20 degrees while sleeping. States blood sugars have been well-controlled. PMH: DMII CAD sp PCI Lung cancer sp lobectomy and adjuvant chemo 2014 Dyslipidemia AL Obesity PSH: right upper lobectomy, denies FH: PGM history of pancreatic cancer, otherwise SH: smokes 4-5 cigarettes per day ROS: other ROS negative O: VITALS - reviewed face sheet from most recent physical visits to the [facility] ([facility]/2019) Physical examination was unable to be completed as this was a telephone consultation offered in light of the COVID-19 pandemic Labs: reviewed Radiology A/P: 64 yo M with ho DMII, CAD sp PCI, lung c ancer sp lobectomy and adjuvant chemo 2014, dyslipidemia, obesity, AL here fo r a follow up visit for a pancreatic cyst 1. Pancreatic cyst, up to 1.9cm in neck/ body of pancreas. CA 19-9 levels have been normal. EUS 07/2018 showed focally dilated PD in the head up to 5 mm with multiple small cysts in the body, suspicious for possible developing main duct and side branch IPMN - While CT with contrast showed stable f indings 06/2019, we discussed this is less sensitive for evaluation of the PD - Recommend MRI abdomen w/wo contrast an d MRCP in 6 months, then likely will monitor annually due to concern for possible main duct IPMN (will monitor for >5 years total, then may discontinue depending on patient's overall medical condition at that time as well as if PD and cysts remain stable) 2. GERD with history of esophagitis that healed at time of 03/2016 EGD and no IM on biopsies, having breakthrough symptoms despite 20mg BID dosing, may be partially related to patient's diabetes - Antireflux measures - Optimize diabetic control - Trial of 2-4 weeks 40mg BID AC dosing 3. History of multiple polyps. Last colo noscopy 2018 (was ~1 yr fu from 2016 exam) included removal of 3 TAs, one hyperplastic polyp proximal to sigmoid and one HP sigmoid colon polyp. Colonoscopy 2016 included removal of 15 polyps, majority of which were TAs - Repeat due 06/2020 Follow-up GI clinic 6 months (after MRI pancreas is completed) Alf Amezcua MD Gastroenterology Allergies: PLAVIX, BRILINTA Allergies reviewed, edited in CPRS as appropriate and confirmed by patient: Yes Active Outpatient Medications (including Supplies): Outpatient Medications Status 1) ACCU-CHEK CHARLES PLUS(GLUCOSE) TEST STRIP USE 1 STRIP ACTIVE FOR TESTING TWO TIMES PER WEEK - DIRECTED TO TEST BLOOD GLUCOSE 2) ALBUTEROL 90MCG (CFC-F) 200D ORAL I NHL INHALE 2 PUFFS ACTIVE BY ORAL INHALATION [...] SPIT AFTER EACH USE. 7) CARBOXYMETHYLCELLULOSE 0.5% SOLN,OP H INSTILL 1 DROP ACTIVE IN BOTH EYES FOUR TIMES A DAY FOR DRY EYES 8) FLUTICASONE PROP 50MCG 120D NASAL I NHL INSTILL 1 ACTIVE SPRAY IN EACH NOSTRIL [...] 11) OMEPRAZOLE 20MG EC CAP TAKE TWO CAP SULES BY MOUTH ACTIVE BEFORE BREAKFAST 30 MINUTES BEFORE EATING TO LOWER STOMACH ACID (REPLACES ACIPHEX) Non-VA Medications Status 1) Non-VA ASPIRIN 81MG EC TAB 81MG FRANCESCO TH ONCE A DAY ACTIVE 2) Non-VA CALCIUM/VITAMIN D TAB MOUTH ONCE A DAY ACTIVE 3) Non-VA CETIRIZINE 5MG/PSEUDO 120MG SA TAB 1 TABLET ACTIVE MOUTH ONCE A DAY 4) Non-VA LISINOPRIL 40MG TAB 20MG FRANCESCO TH EVERY MORNING ACTIVE 5) Non-VA MAGNESIUM OXIDE 250MG TAB 25 0MG MOUTH ONCE A ACTIVE DAY 6) Non-VA MONTELUKAST NA 10MG TAB 10MG MOUTH EVERY ACTIVE EVENING 7) Non-VA NORTRIPTYLINE HCL 25MG CAP 2 5MG MOUTH ONCE A ACTIVE DAY 8) Non-VA POTASSIUM GLUCONATE TAB 595M G MOUTH ONCE A DAY ACTIVE 9) Non-VA PRASUGREL HCL 10MG TAB 10MG MOUTH ONCE A DAY ACTIVE 10) Non-VA PREGABALIN 150MG ORAL CAP 15 0MG MOUTH TWO ACTIVE TIMES A DAY 11) Non-VA SEMAGLUTIDE INJ,SOLN SUBCUT ANEOUSLY EVERY ACTIVE WEEK 22 Total Medications Compared newly ordered medications and medication changes to active medications and non-VA medications, and then reviewed medications with patient and/or caregiver. All discrepancies noted and reconciled. Patients, or caregivers, was provided with reconciled medications list and advised to provide to all non VA providers. Potential adverse reactions of new medications were discussed with the patient. Patient identified discrepancy? No No discrepancies identified Patient/family/caregiver educated on the active and pending outpatient medication list. The list was reviewed with and given to the patient/family/caregiver upon discharge from clinic. Patient/family/caregiver educated on importance of sharing medication list with all VA providers and non-VA providers. /frida AMEZCUA FRONT LINE SUPERVISOR Signed: 08/07/2019 10:51 Receipt Acknowledged By: 08/08/2019 09:19 /gisell/ JA MARLEY RN 08/07/2019 ADDENDUM STATUS: COMPLETED MRI above due 12/2019 then clinic fu to review results /frida AMEZCUA FRONT LINE SUPERVISOR Signed: 08/07/2019 10:52 Receipt Acknowledged By: 08/08/2019 09:20 /gisell/ JA MARLEY RN 08/08/2019 ADDENDUM STATUS: COMPLETED Would you please work with patient to determine type of pacemaker and if it is MRI compatible? I believe it should be, because he said he had an MRI at I think if his spine or thorax within the past 6 months. /frida AMEZCUA FRONT LINE SUPERVISOR Signed: 08/08/2019 10:34 Receipt Acknowledged By: 08/08/2019 15:45 /frida PRESSLEY PARAMEDICAL AIDE 08/08/2019 ADDENDUM STATUS: COMPLETED Pt called to clarify type of pacemaker he has. He informed me he does NOT have a pacemaker, but has an implanted loop recorder. He reports having several MRIs with this with no problems. MRI check list reviewed and order placed. /gisell/ DAYAN ISRAEL PARAMEDICAL AIDE Signed: 08/08/2019 15:34 08/21/2019 ADDENDUM STATUS: COMPLETED [place] called to have his MRI/MRCP ordered in the community as he lives over 4 hours away. Unable to schedule a [facility] consult at this time due to time frame for ordering per [facility] GI RN must be 2 months or less prior to entry. Veterans MRI/MRCP has been added to the [facility] future care MARIA ESTHER sheet and will order this on October 22, 2019. Attempted to contact this about this but I could not leave a message on the unidentifiable voicemail. /frida QUINN RN Signed: 08/21/2019 15:19 ALF AMEZCUA [facility] Aug 07, 2019 10:17 AM NURSING OUTPATIENT NOTE: LOCAL TITLE: WI-SPECIALTY PRE-APPT STANDARD TITLE: NURSING OUTPATIENT NOTE DATE OF NOTE: AUG 07, 2019@10:17 ENTRY DATE: AUG 07, 2019@10:17:55 AUTHOR: JUAN LANG EXP COSIGNER: URGENCY: STATUS: COMPLETED WI-SPECIALTY PRE-APPT Has ADDENDA Specialty Pre-Appt Reason for appointment: F/U MRCP 64 y/o MALE ALLERGIES: PLAVIX, BRILINTA Allergies reviewed, edited in CPRS as appropriate and confirmed by patient: Yes Any new allergies not listed in records? No Active Outpatient Medications (including Supplies): Outpatient Medications Status 1) ACCU-CHEK CHARLES PLUS(GLUCOSE) TEST STRIP USE 1 STRIP ACTIVE FOR TESTING TWO TIMES PER WEEK - DIRECTED TO TEST BLOOD GLUCOSE 2) ALBUTEROL 90MCG (CFC-F) 200D ORAL I NHL INHALE 2 PUFFS ACTIVE BY ORAL INHALATION [...] SPIT AFTER EACH USE. 7) CARBOXYMETHYLCELLULOSE 0.5% SOLN,OP H INSTILL 1 DROP ACTIVE IN BOTH EYES FOUR TIMES A DAY FOR DRY EYES 8) FLUTICASONE PROP 50MCG 120D NASAL I NHL INSTILL 1 ACTIVE SPRAY IN EACH NOSTRIL [...] 11) OMEPRAZOLE 20MG EC CAP TAKE TWO CAP SULES BY MOUTH ACTIVE BEFORE BREAKFAST 30 MINUTES BEFORE EATING TO LOWER STOMACH ACID (REPLACES ACIPHEX) Non-VA Medications Status 1) Non-VA ASPIRIN 81MG EC TAB 81MG FRANCESCO TH ONCE A DAY ACTIVE 2) Non-VA CALCIUM/VITAMIN D TAB MOUTH ONCE A DAY ACTIVE 3) Non-VA CETIRIZINE 5MG/PSEUDO 120MG SA TAB 1 TABLET ACTIVE MOUTH ONCE A DAY 4) Non-VA LISINOPRIL 40MG TAB 20MG FRANCESCO TH EVERY MORNING ACTIVE 5) Non-VA MAGNESIUM OXIDE 250MG TAB 25 0MG MOUTH ONCE A ACTIVE DAY 6) Non-VA MONTELUKAST NA 10MG TAB 10MG MOUTH EVERY ACTIVE EVENING 7) Non-VA NORTRIPTYLINE HCL 25MG CAP 2 5MG MOUTH ONCE A ACTIVE DAY 8) Non-VA POTASSIUM GLUCONATE TAB 595M G MOUTH ONCE A DAY ACTIVE 9) Non-VA PRASUGREL HCL 10MG TAB 10MG MOUTH ONCE A DAY ACTIVE 10) Non-VA PREGABALIN 150MG ORAL CAP 15 0MG MOUTH TWO ACTIVE TIMES A DAY 11) Non-VA SEMAGLUTIDE INJ,SOLN SUBCUT ANEOUSLY EVERY ACTIVE WEEK 22 Total Medications Compared newly ordered medications and medication changes to active medications and non-VA medications, and then reviewed medications with patient and/or caregiver. All discrepancies noted and reconciled. Patients, or caregivers, was provided with reconciled medications list and advised to provide to all non VA providers. Potential adverse reactions of new medications were discussed with the patient. Essential Medication List was reviewed with patient and any discrepancies are reconciled below. Are there any OTC medications,vitamins or herbal supplements in use and not listed on Medication Reconciliation? No Are there any prescriptions meds in the use that are not listed on the last medication reconciliation? No Are there any medications no longer in use or on hold? Yes Pt. states Outside [employer] stopped the Aspirin/Dipyridamole and started him on Prasugrel. Notriptyline stopped a long time ago due to concern for possible side effects. Cetirizine/Pseudo stopped and changed to Claritin-D last month. Discrepancies Identified: Yes Discrepancies identified/communicated to prescribing providers for reconciliation. Alerting PCP team of medication changes. Discrepancies reconciled: Updated med list. D/C of nortriptyline and cetirizine/pseudo. Adding Claritin D to med list. Is this appointment for Pain Management or Sleep Clinic? No (If yes, depression reminder due) Is the patient diabetic? Yes - patient is a diabetic Last HGBA1c value and time done: 6.9 % H (03/21/2019 08:55) HGBA1c < 7, repeat in 6 months HGBA1c > 7, repeat in 3 months WI-ABUSE/NEGLECT SCREENING: Signs/Symptoms of Abuse: Abuse/Neglect Questions Yes Does the patient show any signs of abuse or neglect? No---phone appt. REPORT OF SUSPECTED ABUSE OR NEGLECT SOCIAL WORK CONSULTS: WI-PAIN: Pain Documentation: Pain level 3 or less. PTSD Screening: [id number]-5+I9 PTSD Screening Score: 1 The score for this administration is 1, which indicates a NEGATIVE screen for PTSD in the past month. Suicide Screening Score: 0 The results of this administration revealed no suicidal ideation over the last 2 weeks, which indicates a NEGATIVE primary screen for Risk of Suicide. Questions 1-5 reference a time frame of the past month Sometimes things happen to people that are unusually or especially frightening, horrible or traumatic. Have you ever experienced this kind of event? YES 1. Had nightmares about the event(s) or thought about the event(s) when you did not want to? NO 2. Tried hard not to think about the event(s) or went out of your way to avoid situations that reminded you of the event(s)? YES 3. Been constantly on guard, watchful, or easily startled? NO 4. [place] numb or detached from people, activities, or your surroundings? NO 5. [place] guilty or unable to stop blaming yourself or others for the event(s) or any problems the event(s) may have caused? NO 6. Over the last 2 weeks, how often have you been bothered by thoughts that you would be better off or of hurting yourself in some way? Not at All /frida LANG RN Signed: 08/07/2019 12:31 08/07/2019 ADDENDUM STATUS: COMPLETED Phone appt[facility] with [facility] this AM. Upon review of medication list, some changes noted. Pt. states his [facility] changed his medication. He no longer takes Aspirin/Dipyridamole but instead takes Prasugrel. Aspirin/Dipyridamole still on med list. Prasugrel is noted in [facility]. Pt. also states he no longer takes cetirizine/pseudo. It has changed to Claritin-D within the last month, med list updated. He also stopped taking Nortriptyline awhile ago due to possible side effects, med list updated. Alerting PCP team. /frida LANG RN Signed: 08/07/2019 12:36 Receipt Acknowledged By: * AWAITING SIGNATURE * DARIEL HERNANDEZ LANA R [facility]
--- OUTSIDE RECORDS SUMMARY | 2019-11-11 02:19 | XMS REPORT | Encounter Summary ---
Author [facility] Address [address] [place] [address] Phone Unavailable Care Team Providers Care Level Vial Inside Grinder Name Role Phone ADRIEL HERNANDEZ PCP Unavailable Insurance Providers: All historical and current No Data Provided for This Section Selected Encounter This section includes the information on record at [place] for the Encounter. 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 This section includes future appointments and fu ture orders which are active, pending or scheduled. Future Appointments This section includes appointments that were scheduled t o occur 6 months from the date of the Encounter, up to a maximum of 20 appointme nts. The data comes from all [facility]. Appointment Date/Time Appointment Type Appointment Facili ty Name Apr 14, 2019 10:00 AM AMBULATORY - SURGERY [facility] Apr 28, 2019 11:00 AM AMBULATORY - NONE [facility] Jun 25, 2019 11:30 AM AMBULATORY - NONE [facility] Jun 25, 2019 01:15 PM AMBULATORY - MEDICINE ARTUR LudaJuan M BLAS [facility] Jul 23, 2019 11:00 AM AMBULATORY - NONE [facility] Jul 25, 2019 08:00 AM AMBULATORY - NONE [facility] Aug 07, 2019 10:30 AM AMBULATORY - MEDICINE ARTUR BLAS [facility] Sep 23, 2019 11:15 AM AMBULATORY - NONE [facility] Sep 23, 2019 11:30 AM AMBULATORY - MEDICINE [facility] Active, Pending, and Scheduled Orders This section [...] the Encounter. The data comes from all [facility]. 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 Radiology Reports and Pathology Report s are provided separately, in subsequent sections. Lab Results This section contains the Chemistry/Hematology Results usha t were resulted 30 days before or 30 days after the date of the Encounter. Date/Time Source Result Type Result - Unit Interpretation Reference Range Comment Mar 21, 2019 08:55 AM [facility] HEMOGLOBIN A1C Specimen Type: BLOOD No comment entered. HEMOGLOBIN A1C 6.9 % H 4.0-6.0 Vital Signs: All taken on the encounter date This section contains inpatient and outpatient Vital Signs collected on the date of the Encounter. Date/Time Temperature Pulse Blood Pressure Respiratory Rate SP02 Pa in Height Weight Body Mass Index Source Apr 03, 2019 10:21 AM 4 [facility]UR [place] LEVIM[facility] Apr 03, 2019 10:01 AM 99.5 F 92 /min 106/67 mm[Hg] 18 /min 94 % 4 [facility] Immunizations: All administered on the encounter date No Data Provided for This Section Social History: Smoking Status (Most current) and Tobacco Use (All prior to enco unter date) This section includes the most current, and the historical, smoking and tobacco- related health factors from the [place] facility where the Encounter took place. Current Smoking Status This section includes the most current smoking, or tobacco -related health factor, from the PR facility where the Encounter took place. Date/Time Current Smoking Status Comment Facility Jun 26, 2018 02:13 PM PR-TOBACCO QUIT 15 YRS OR MORE [facility] Tobacco Use History This section includes a history of the smoking, or tobacco -related health factors, that were collected on or before the date of the Encoun ter. The data comes from the PR facility where the Encounter took place. Date/Time Smoking Status/Tobacco Use Comment [facility] Jun 26, 2018 02:13 PM PR-TOBACCO QUIT 15 YRS OR MORE [facility] Jun 27, 2017 01:39 PM NON-TOBACCO USER [facility] Jun 27, 2017 01:16 PM NON-TOBACCO USER [facility] Jan 06, 2015 02:07 PM NON-TOBACCO USER [facility] Nov 23, 2014 10:38 AM NON-TOBACCO USER [facility] Oct 26, 2014 10:36 AM NON-TOBACCO USER [facility] Oct 14, 2014 11:09 AM NON-TOBACCO USER [facility] Advance Directives: All historical and current No Data Provided for This Section Allergies and Adverse Reactions (ADRs): All historical and current Section Date Range: From patient's date of to the date document was create d. This section includes Allergies and Adverse Reactions (ADR s) on record with VA for the patient. The data comes from a [facility] treatment facilities. It does not list Allergies/ADRs that were removed or entered in error. Some allergies/ADRs may be reported in t he Immunization section. Allergen Event Date Event Type Reaction(s) Severity Source BRILINTA September 08, 2014 Propensity to adverse reactions to drug (diso rder) [facility], [facility] 15 PLAVIX September 08, 2014 Propensity to adverse reactions to drug (diso rder) [facility] Medications: VA dispensed (-15 months) and Non-VA Documented (Obtained Outside V A) Section Date Range: 1) prescriptions processed by a VA pharmacy in the last 15 m [facility], and 2) all medications recorded in the PR medical record as "non-VA medic ations". Pharmacy terms refer to VA pharmacy's work on prescriptions. VA patient s are advised to take their medications as instructed by their health care team. The data comes from all [place] treatment facilities. Glossary of Pharmacy Terms:Active = A prescription that can be filled at the local [place] pharmacy.Active: On Hold = An active prescription that will not be filled until pharmacy resolves the issue.Active: Susp = An active prescription that is not scheduled to be filled yet.Clinic Order = A medication received during a visit to a [place] clinic or emergency department (currently not available).Discontinued [...] may be a prescription from either the [place] or other providers that was filled outside the [place]. Or, it may be an over the [...] TEST BLOOD GLUCOSE 50 Dec 19, 2019 [id number] September 04, 2019 PAMELA RAMSEY CBGUILLERMO ACCU-CHEK CHARLES PLUS (GLUCOSE) TEST STRIP Discontinued USE 1 STRIP FOR TESTING TWO TIMES PER WEEK - DIRECTED TO TEST BLOOD GLUCOSE 50 Jul 25, 2019 [id number] Nov 12, 2018 PAMELA RAMSEY ALBUTEROL SO4 90MCG/ACTUAT (CFC-F) INHL,ORAL,6.7GM Active INHALE 2 PUFFS BY ORAL INHALATION EVERY 4 HOURS NEEDED FOR BREATHING. SHAKE WELL. RINSE MOUTHPIECE FREQUENTLY TO PREVENT CLOGGING. USE NEEDED FOR SHORTNESS OF AIR/WHEEZING FOR BREATHING. SHAKE WELL. RINSE MOUTHPIECE FREQUENTLY TO PREVENT CLOGGING. USE NEEDED FOR SHORTNESS OF AIR/WHEEZING 1 Dec 19, 2019 [id number] September 04, 2019 PAMELA RAMSEY [facility] ALCOHOL PREP PAD Active USE 1 PAD ON SKIN BIW TO CLEAN AND DISINFECT THE SKIN 200 Sep 29, 2020 [id number] Sep 30, 2019 CHUCHOPAMELLA FAUSTINLloyd [facility] ALCOHOL PREP PAD Discontinued USE 1 PAD ON SKIN BI W TO CLEAN AND DISINFECT THE SKIN 200 Dec 19, 2019 [id number] Jun 06, 2019 PAMELA RAMSEY [facility] ALCOHOL PREP PAD Discontinued USE 1 PAD ON SKIN BI W TO CLEAN AND DISINFECT THE SKIN 200 Jul 25, 2019 [id number] Nov 12, 2018 PAMELA RAMSEY ASPIRIN 25MG/DIPYRIDAMOLE 200MG CAP,SA Active T CHAPIN 1 CAPSULE BY MOUTH TWO TIMES A DAY - SWALLOW WHOLE. DO NOT CRUSH OR CHEW. FOR RECURRENT TIA/STROKE 180 Dec 19, 2019 [id number] Dec 20, 2018 PAMELA RAMSEY ASPIRIN 25MG/DIPYRIDAMOLE 200MG CAP,SA Discontinued T CHAPIN 1 CAPSULE BY MOUTH TWO TIMES A DAY - SWALLOW WHOLE. DO NOT CRUSH OR CHEW. FOR RECURRENT TIA/STROKE 180 Feb 06, 2019 [id number] Sep 28, 2018 ZACHARY GRECO ASPIRIN 81MG TAB,EC Non- VA TAKE ONE TABLET BY MOUTH ONCE A DAY Non-VA Documented by: PADMA LONG nted at: [facility] ATORVASTATIN CA 80MG TAB Active TAKE ONE TABLET BY MOUTH AT BEDTIME FOR CHOLESTEROL - REPORT ANY UNEXPLAINED MUSCLE PAIN/WEAKNESS TO YOUR PROVIDER 90 Dec 19, 2019 [id number] September 04, 2019 BRAULIO,PAMELA [facility] ATORVASTATIN CA 80MG TAB Discontinued TAKE ONE TABLET BY MOUTH AT BEDTIME FOR CHOLESTEROL - REPORT ANY UNEXPLAINED MUSCLE PAIN/WEAKNESS TO YOUR PROVIDER 90 Dec 20, 2018 [id number] Nov 12, 2018 PAMELA RAMSEY BUDESONIDE 160MCG/FORMOTEROL FUM 4.5MCG/SPRAY INHL,ORAL,10.2 GM Active INHALE 2 PUFFS BY MOUTH TWO TIMES A DAY FOR BREATHING. SHAKE WELL. RINSE MOUTH AND SPIT AFTER EACH USE. 3 Apr 24, 2020 [id number] August 22, 2019 LISSA OATES [facility] CALCIUM/VITAMIN D TAB No n-VA TAKE BY MOUTH ONCE A DAY Non-V A Documented by: PADMA LONG nted at: [facility] CARBOXYMETHYLCELLULOSE NA 0.5% SOLN,OPH Active INSTILL ONE DROP IN BOTH EYES FOUR TIMES A DAY FOR DRY EYES 15 Feb 01, 2020 [id number] September 03 0 [facility] DICLOFENAC NA 1% GEL,TOP Discontinued APPLY 2 GRAMS A FFECTED AREA TWO TIMES A DAY NEEDED FOR PAIN AND INFLAMMATION. DO NOT EXCEED 16GM DAILY TO ANY AFFECTED JOINT OF LOWER EXTREMITIES. DO NOT EXCEED 8GM DAILY TO ANY AFFECTED JOINT OF UPPER EXTREMITES. DO NOT EXCEED TOTAL DOSE OF 32GM DAILY FOR ALL JOINTS. 100 Oct 31, 2018 [id number] Oct 06, 2018 ANAYELI KIRKPATRICK [facility] DICLOFENAC NA 1% GEL,TOP APPLY 2 GRAMS A FFECTED AREA TWO TIMES A DAY NEEDED FOR PAIN AND INFLAMMATION. DO NOT EXCEED 16GM DAILY TO ANY AFFECTED JOINT OF LOWER EXTREMITIES. DO NOT EXCEED 8GM DAILY TO ANY AFFECTED JOINT OF UPPER EXTREMITES. DO NOT EXCEED TOTAL DOSE OF 32GM DAILY FOR ALL JOINTS. 100 Jan 17, 2019 [id number] Dec 20, 2018 PAMELA RAMSEY FLUTICASONE PROPIONATE 50MCG/SPRAY SOLN,NASAL,16GM Active INSTILL 1 SPRAY IN EACH NOSTRIL ONCE A DAY SHAKE GENTLY BEFORE USE! - MUST BE USED DIRECTED FOR 3 WEEKS TO PROVIDE BENEFIT. * NO EARLY REFILLS * 1UNIT = 30DAYS AT 4 PF/DAY OR 60DAYS AT 2PF/DAY 2 Dec 19, 2019 [id number] August 26, 2019 PAMELA RAMSEY CBGUILLERMO KETOTIFEN 0.025% SOLN,OPH Active INSTILL 1 DROP IN BOTH EYES TWO TIMES A DAY FOR RELIEF OF ALLERGY SYMPTOMS IN EYE(S) 10 Feb 01, 2020 [id number] September 04, 2019 [facility] LANCET,SOFTCLIX Active USE LANCET BIW FOR TESTING BL OOD GLUCOSE DIRECTED 100 Sep 29, 2020 [id number] Sep 30, 2019 CHUCHOMAURICIO FAUSTIN [facility] LANCET,SOFTCLIX Discontinued USE LANCET BIW FO R TESTING BLOOD GLUCOSE DIRECTED 100 Dec 19, 2019 [id number] Jun 06, 2019 PAMELA RAMSEY [facility] LANCET,SOFTCLIX Discontinued USE LANCET BIW FO R TESTING BLOOD GLUCOSE DIRECTED 100 Jul 25, 2019 [id number] Nov 12, 2018 PAMELA RAMSEY LISINOPRIL 40MG TAB Non- VA TAKE ONE-HALF TABLET BY MOUTH EVERY MORNING Non-VA Documented by: PAMELA RAMSEY nted at: [facility] LORATADINE/PSEUDOEPHEDRINE TAB,SA Non-VA TAKE BY MOUTH No n-VA Documented by: JUAN LANG nted at: [facility]UR [facility]AS [facility] MAGNESIUM OXIDE 250MG TAB Non-VA [...] ACID (REPLACES ACIPHEX) 180 Dec 19, 2019 [id number] August 26, 2019 PAMELA RAMSEY POTASSIUM GLUCONATE TAB Non-VA TAKE 595MG BY MOUTH ONCE A DAY Non-VA Documented by: PADMA LONG nted at: [facility] PRASUGREL HCL 10MG TAB N on-VA TAKE ONE TABLET BY MOUTH ONCE A DAY Non-VA Documented by: SAM HARDWICK nted at: [facility] PREGABALIN 150MG CAP,ORAL Non-VA TAKE 1 [...] ANAYELI KIRKPATRICK Docume nted at: [facility] BLAS [facility] TERBINAFINE HCL 1% CREAM,TOP Active APPLY LIGHT LY TO AFFECTED AREA TWO TIMES A DAY FOR INFECTION 90 Sep 23, 2020 [id number] Sep 24, 2019 ADRIEL HERNANDEZ UREA 20% CREAM,TOP Active APPLY LIGHTLY (20%) TO AFFECTED AREA TWO TIMES A DAY NEEDED TO PROMOTE HEALING,RUB IN UNTIL COMPLETELY ABSORBED*FOR TOPICAL USE ONLY* APPLY TO BOTH FEET DIRECTED. 90 Sep 25, 2020 [id number] Sep 26, 2019 ADRIEL HERNANDEZ Problems (Conditions): All historical and current Section Date Range: From patient's date of to the date document was create d. This section includes a list of Problems (Conditions) know n to [facility] for the patient. It includes both active and inacti ve problems (conditions). The data comes from all [place] treatment facilities. Problem Status Problem Code Date of Onset Date of Resolution Comm ent(s) Provider Source Alcohol intake above recommended sensible limits Active 913513490 [facility] Allergic conjunctivitis Active 921160701 [facility] Bilateral senile combined form cataracts of eyes Active 77594462718 9108 [facility] Bilateral tinnitus Active 6911703648816 CHASTITY JEAN Juan M [facility] Coronary arteriosclerosis Active 94907620 September 08, 2014 Entered By: PADMA LONG Comment: hx of ptca to RCA several yrs. 2014 Entered By: PADMA LONG Comment: heart cath 09/01/14, neg. / previous stent to RCA,, [place] HATCHER, JENNEY R [facility]ERT J[facility] Diabetes mellitus Active 81594253 PMAELA RAMSEY 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 Dry eyes Active 451405655 [facility]EDA [facility] Gastro-esophageal reflux disease without esophagitis ( SNOMED CT 338791626) Active 095177782 ALF GUEVARA [facility] Hyperlipidemia (SNOMED CT 56595447) Active 16040734 PAMELA RAMSEY [facility] Lung mass Active 385840900 September 08, 2014 E ntered By: PADMA LONG Comment: 4.5 cm mass, post. segment right upper lobe.September 08, 2014 Entered By: PADMA LONG Comment: mild adenopathy in mediastinum and bilat. [email or web address] Entered By: PADMA LONG Comment: most likely related to lung cancerMa2014 Entered By: PADMA LONG Comment: per ct angio of chest with contrast 09/01/14,[place] 2014 Entered By: PADMA LONG Comment: per path report- mod. differentiated bronchogenic adenoca. PADMA LONG 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 Papilloma of right eyelid Active 961288865078411 [facility] SHAW [facility] Polyp of colon Active 52342129 Jan 23 Entered By: PADMA LONG Comment: c-scope 01/17/16, multiple benign colonic polypsJun 28, 2017 Entered By: PADMA LONG Comment: c-scope,06/25/17,[facility], three benign polyps- sigmoid colon, transverse colon,cecum. see path report cprs SHARRON TORRES Mila [facility] Pulmonary emphysema Active 76744113 [address] [facility] Sensorineural hearing loss, bilateral Active 213804421 CHASTITY JEAN [facility] Snoring Active 68919291 [place] [facility] Type 2 diabetes mellitus without complication Active 032460005 [facility] Environmental Allergies (ICD-9-CM 477.9) Inactive 477.9 [...] PADMA LONG Comment: one ppd PADMA LONG [facility] Radiology Reports: +/- 30 days of [...] pathology services may have been completed after th e date of the Encounter, the report list also includes the Pathology Reports usha t were completed up to 30 days after date of the Encounter. The data comes from all [facility] facilities. Date/Time Pathology Report Provider Source Apr 03, 2019 11:11 AM LR SURGICAL PATHOLOGY REPORT : Date Spec taken: Apr 03, 2019 11:11 Pathologist:BRIGID MCGUIRE MD Date Spec rec'd: Apr 03, 2019 11:12 Resident: Date completed: Apr 07, 2019 Accession #: [id number] Submitted by: Practitioner:SAM HARDWICK MD Specimen: 1.RIGHT UPPER CHEEK LOWER EYELID/SUTURE [...] 11:11) Microscopic examination is performed. DIAGNOSIS: Specimen: [id number] Spec Type: SURGICAL Abdulkadir: 04/03/19 Rec: 04/03/19-1241 PATHOLOGIC DIAGNOSIS Skin lesion, right upper cheek, biopsy: 1. Seborrheic keratosis, not involving resection margins. 2. Solar elastosis. Skin lesion, right lower mid margin, biopsy: 1. Seborrheic keratosis, with tumor at tissue edge/margin, but with benign features. LL COPIES TO: SAM HARDWICK [facility] PATHOLOGIST CODES: 00934/2 at 1235 The gross and microscopic examinations and interpretation were performed at [facility] Department of Pathology, [address] [place] [address]. Slides and paraffin blocks are on file at [facility]. =--=--=--=--=--=--=--=--=--=--=--=--=--=--=--=--=--=--=--=--=--=--=--=--=--=-- Performing Laboratory: Surgical Pathology Report Performed By: [facility] [CLIA# [id number]] [address] [place] [address] EDWARD LANGFORD [facility] 15 Encounter Notes: All associated encounter notes This section contains the clinical notes associated to the Encounter. Date/Time Encounter Note(s) Provider Source Apr 03, 2019 10:22 AM PROCEDURE NOTE: LOCAL TITLE: WI-AMBULATORY PROCEDURE NOTE STANDARD TITLE: PROCEDURE NOTE DATE OF NOTE: APR 03, 2019@10:22 ENTRY DATE: APR 03, 2019@10:22:26 AUTHOR: NÉSTOR CHEN EXP COSIGNER: URGENCY: STATUS: COMPLETED WI-AMBULATORY PROCEDURE NOTE *PROCEDURE: Excision Lesion rLL, upper cheek Consent signed: Yes Location (unit) of procedure: ADS Procedure being performed by: Dr Hardwick Identification armband in place: Yes Allergies verified: Yes Taking blood thinners: Yes Plavix or other antiplatelet daily: Yes; 81mg; last dose:04/02 Coumadin: No; mg; last dose: PT/INR: No Results of PT/INR: N/A DOAC'S; Apixaban, Dabigatran, or Rivaroxaban: Yes; 10mg; last dose:04/03 *TIME OUT STAFF WHO PARTICIPATED IN TIME OUT IMMEDIATELY BEFORE PROCEDURE: Dr Ronen Jensen [facility] Patient states full name and full social security number correctly: Yes, Other verification: Correct procedure verified: Yes Correct site verified: Yes Correct patient position: Yes Availability of any special equipment or requirements: NA If yes: Appropriate Antibiotic Prophylaxis administered pre-procedure if applicable: Med, Dose and Route: Checklist comment: *PRE-PROCEDURE RE-EVALUATION: Patient evaluted and chart reviewed: Yes Following changes noted since previous evaluation: Verify pre-procedure prep completed prior to arrival: NA *Skin Prep: Preop surgical site hair removal by: N/A Surgical site hair removal method: n/a Hair removal comments: Choose the skin prep method used: Providone-Iodine used to prep skin, 3 minutes allowed for Providone-Iodine drying, procedure initiated thereafter Yes Instrument sterility: Indicators and instruments checked for sterility. Casket locks in place, indicators turned, filters intact and in proper place. Yes Sterile technique used for set up of surgical procedure. Medications Lidocaine 2% Epi 1:100,000 Time administered: Route: Ordered by: Dr Hardwick Administered by: Dr Hardwick Comments: Sponge final count correct: NA Sharps final count correct: Yes Instrument final count correct: Yes Comments: Sharps disposed of properly in the sharps container post procedure. Dressing: Other: Erythromycin ointment ophthalmic Post Procedure Patient tolerated procedure well and reported no pain. Patient instruction sheet given and discussed with patient including wound care and follow up. Patient dismissed to home. /gisell/ NÉSTOR CHEN RN Signed: 04/03/2019 10:45 NÉSTOR CHEN [facility] Apr 03, 2019 10:21 AM NURSING OUTPATIENT NOTE: LOCAL TITLE: WI-SPECIALTY PRE-APPT STANDARD TITLE: NURSING OUTPATIENT NOTE DATE OF NOTE: APR 03, 2019@10:21 ENTRY DATE: APR 03, 2019@10:21:13 AUTHOR: NÉSTOR CHEN COSIGNER: URGENCY: STATUS: COMPLETED WI-PAIN: Pain Documentation: Pain Assessment: Location: (specify location in comments) Pain Scale (0-10): 4 (04/03/2019 10:01) 4 Comment: back ...Onset/Duration: ... chronic Specialty Pre-Appt Reason for appointment: lesion removal 64 y/o MALE ALLERGIES: PLAVIX, BRILINTA Allergies [...] UNEXPLAINED MUSCLE PAIN/WEAKNESS TO YOUR PROVIDER 6) CARBOXYMETHYLCELLULOSE 0.5% SOLN,OP H INSTILL 1 DROP ACTIVE IN BOTH EYES FOUR TIMES A DAY FOR DRY EYES 7) FLUTICASONE PROP 50MCG 120D NASAL I NHL INSTILL 1 ACTIVE SPRAY IN EACH NOSTRIL ONCE A DAY SHAKE GENTLY BEFORE USE! - MUST BE USED DIRECTED FOR 3 WEEKS TO PROVIDE BENEFIT. * NO EARLY REFILLS * 1UNIT = 30DAYS AT 4 PF/DAY OR 60DAYS AT 2PF/DAY 8) KETOTIFEN 0.025% OPH SOLN INSTILL 1 DROP IN BOTH EYES ACTIVE TWO TIMES A DAY FOR RELIEF OF ALLERGY SYMPTOMS IN EYE(S) 9) LANCET,SOFTCLIX USE LANCET TWICE A WEEK FOR ACTIVE TESTING BLOOD GLUCOSE DIRECTED 10) OMEPRAZOLE 20MG EC CAP TAKE TWO CAP [...] SEMAGLUTIDE INJ,SOLN SUBCUT ANEOUSLY EVERY ACTIVE WEEK 21 Total Medications Compared [...] no longer in use or on hold? No Discrepancies Identified: No Discrepancies identified/communicated to prescribing providers for reconciliation. Discrepancies reconciled: Is this appointment for Pain Management or Sleep Clinic? No (If yes, depression reminder due) Is the patient diabetic? Yes - patient is a diabetic Last HGBA1c value and time done: 6.9 % H (03/21/2019 08:55) HGBA1c < 7, repeat in 6 months HGBA1c > 7, repeat in 3 months /gisell/ NÉSTOR CHEN RN Signed: 04/03/2019 10:22 NÉSTOR CHEN [facility] Apr 03, 2019 09:53 AM PROCEDURE NOTE: LOCAL TITLE: WI-AMBULATORY PROCEDURE ROOM NOTE STANDARD TITLE: PROCEDURE NOTE DATE OF NOTE: APR 03, 2019@09:53 ENTRY DATE: APR 03, 2019@09:53:54 AUTHOR: SAM HARDWICK COSIGNER: URGENCY: STATUS: COMPLETED Note Title: WI-AMBULATORY PROCEDURE ROOM NOTE Attending Physician: Sam Hardwick MD Provider Performing Procedure: same Procedure: 1. Shave biopsy right lower eyelid 2. Excisional biopsy right lower eyelid/upper cheek Pre-procedure Diagnosis: 1. Papilloma right lower eyelid 2. Neoplasm uncertain behavior skin right lower eyelid Post-procedure Diagnosis: same Anesthesia: Local Description of Procedure: The patient was consented in the ADS. A "time out" verification was performed with agreement by all staff present prior to the procedure being started, identifying patient by the correct name, complete date, site and side of procedure. The patient's right eyelids cleaned with povidone iodine and a sterile fenestrated drape placed over the right eye. The right lower eyelid was injected with 2% Lidocaine with epinephrine 1:100,000. The skin was incised with a #15 blade and the lesion was removed using Tonya scissors and was sent for pathology. The biopsy was oriented in the horizontal and a prolene stitch was placed nasally. The wound was closed with a 6-0 nylon stitch with no hemostasis needed. A shave biopsy of the right lower eyelid in the center of the eyelid was performed with a #15 blade. Hemostasis was achieved with hand held cautery. Erythromycin ointment was applied and the patient was given the tube. The patient was instructed to apply the ointment and to clean with hydrogen peroxide twice a day for 7 days and to call if redness or pain develop. Patient to return for stitch removal on April 14. Specimens: 1. Shave biopsy right lower eyelid margin 2. Horizontal excisional biopsy marked with suture at nasal margin All medications/treatments for this procedure either dispensed or administered were carried out per my verbal order. Comments: Generic maxitrol josé miguel to lesion bid for 7 days. F/U STITCH REMOVAL APRIL 14. /gisell/ SAM HARDWICK Staff [employer] Operator Signed: 04/03/2019 10:37 [facility]WICK [facility]
--- OUTSIDE RECORDS SUMMARY | 2019-11-11 02:19 | XMS REPORT | Encounter Summary ---
Author Author Department [facility] Address [address] [place] [address] Phone Unavailable Care Team Providers Care Maintenance Repairman Name Role Phone ADRIEL HERNANDEZ PCP Unavailable Insurance Providers: All historical and current No Data Provided for This Section Selected Encounter This section includes the information on record at [place] for the Encounter. 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 Date/Time Primary/Secondary Diagnosis Diagnosis Name Provider Source Jun 25, 2019 03:29 PM PRIMARY Congenital pancreatic cyst LEVON MUNGUIA [facility] Plan of Treatment: Future Appointments (+ 6 [...] appointme nts. The data comes from all [facility]. Appointment Date/Time Appointment Type Appointment Facili ty Name Jul 23, 2019 11:00 AM AMBULATORY - NONE [facility] BLAS [facility] Jul 25, 2019 08:00 AM AMBULATORY - NONE [facility] C Aug 07, 2019 10:30 AM AMBULATORY - MEDICINE [facility] Sep 23, 2019 11:15 AM AMBULATORY - NONE [facility] Sep 23, 2019 11:30 AM AMBULATORY - MEDICINE [facility] Oct 07, 2019 09:15 AM AMBULATORY - NONE [facility] T, VISN 15 Active, Pending, and Scheduled Orders This section [...] the Encounter. The data comes from all [facility]. Test Date/Time Test Type Test Details Facility Name Jun 18, 2019 10:07 AM Consult Order [facility] CARDIOLOGY-[id number] Cons Seam Rubber's Choice [facility] Surgical Procedures: All associated to the [...] Result - Unit Interpretation Reference Range Comment Jun 25, 2019 10:48 AM [facility] BLAS [facility] CBC & DIFF Specimen Type: BLOOD No comment entered. WBC 7.8 K/cmm 3.60-11.20 RBC 5.61 M/ul 4.1-5.7 HGB 15.2 g/dl 13.1-16.8 HCT 47.6 % 38.2-48.4 MCV 84.8 fl 80.1-98.5 MCH 27.1 pg 27.0-34.0 MCHC 31.9 g/dl L 33.0-36.0 PLATELET COUNT 270 K/cmm 150-400 MPV 10.6 fl 7.5-11.2 RDW 17.8 % H 11.8-15.1 LYMPHOCYTES, AUTO% 26.3 % NEUTROPHILS, AUTO % 61.2 % MONOCYTES, AUTO% 9.6 % MONOCYTES, ABSOLUTE 0.8 K/cmm 0.19-0.80 NEUTROPHILS, ABSOLUTE 4.8 K/cmm 2.10-8.0 0 EOSINOPHILS, ABSOLUTE 0.1 K/cmm 0.00-0.6 0 BASOPHILS, ABSOLUTE 0.1 K/cmm 0.00-0.20 EOSINOPHILS, AUTO% 1.7 % BASOPHILS, AUTO% 0.9 % LYMPHOCYTES, ABSOLUTE 2.1 K/cmm 0.77-4.5 0 IMMATURE GRANS, ABSOLUTE 0.02 K/cmm 0.00 -0.05 IMMATURE GRANS, AUTO % 0.3 % Jun 25, 2019 10:40 AM [facility] BLAS [facility] CA 19-9 Specimen Type: SERUM Comment: CA 19-9 This test was performed using the Siemens chemiluminescent method. Values obtained from different assay methods cannot be used inter- changeably. CA 19-9 levels, regardless of value, should not be interpreted as absolute evidence of the presence or absence of disease. CA 19-9 7 U/mL <34 Jun 25, 2019 10:40 AM ARTUR BLAS [facility] COMPREHENSIVE METABOLI C PANEL Specimen Type: PLASMA Comment: For eGFR: eGFR results >60 are imprecise. Many variables affect the calculated result. Interpretation of eGFR results >60 must be monitored over time. *CREATININE 1.20 mg/dL 0.7-1.3 UREA NITROGEN mg/dL 18 mg/dL 9-25 GLUCOSE 107 mg/dL H 72-99 SODIUM 136 mEq/L 136-145 POTASSIUM 4.5 mEq/L 3.5-5.0 CALCIUM (mg/dL) 9.9 mg/dL 8.4-10.4 PROTEIN,TOTAL 8.0 g/dL 6.0-8.6 ALBUMIN 4.4 g/dl 3.4-5.0 TOTAL BILIRUBIN 0.4 mg/dL 0.2-1.2 ASPARTATE TRANSAMINASE 28 U/L 5-34 ALANINE AMINOTRANSFERASE 23 U/L 8-40 ANION GAP 9.8 8-16 CHLORIDE 103 mEq/L 98-107 CO2 23.2 mEq/L 22-31 ALKALINE PHOSPHATASE 161 U/L H 40-150 EGFR >60 Jun 25, 2019 10:40 AM [facility] BLAS [facility] CREATININE (INCLUDES E GFR) Specimen Type: PLASMA Comment: For eGFR: eGFR results >60 are imprecise. Many variables affect the calculated result. Interpretation of eGFR results >60 must be monitored over time. *CREATININE 1.20 mg/dL 0.7-1.3 EGFR >60 Vital Signs: All taken on the encounter date This section contains inpatient and outpatient Vital Signs collected on the date of the Encounter. Date/Time Temperature Pulse Blood Pressure Respiratory Rate SP02 Pa in Height Weight Body Mass Index Source Jun 25, 2019 02:14 PM 98.6 F 86 /min 119/80 mm[Hg] 18 /min 3 223.8 lb 31 [facility] BLAS [facility] Immunizations: All administered on the encounter date [...] YRS OR MORE PORSHA BLAS [facility] Tobacco Use History This section includes a history of the smoking, or tobacco -related health factors, that were collected on or before the date of the Encoun ter. The data comes from the [place] facility where the Encounter took place. Date/Time Smoking Status/Tobacco Use Comment [facility] Jun 26, 2018 02:13 PM [place]-TOBACCO QUIT 15 YRS OR MORE PORSHA BLAS [facility] Jun 27, 2017 01:39 PM NON-TOBACCO USER [facility]UR Mi Jun 27, 2017 01:16 PM NON-TOBACCO USER [facility] Mi Jan 06, 2015 02:07 PM NON-TOBACCO USER [facility] Mi Nov 23, 2014 10:38 AM NON-TOBACCO USER [facility] Mi Oct 26, 2014 10:36 AM NON-TOBACCO USER [facility] Mi Oct 14, 2014 11:09 AM NON-TOBACCO USER [facility] C Advance Directives: All historical and current [...] to adverse reactions to drug (diso rder) [facility], VISN 15 PLAVIX September 08, 2014 Propensity to adverse reactions to drug (diso rder) [facility], VISN 15 Medications: VA dispensed (-15 months) and Non-VA Documented (Obtained Outside V A) Section Date Range: 1) prescriptions processed by a [facility] pharmacy in the last [facility], and 2) all medications recorded in [...] TEST BLOOD GLUCOSE 50 Dec 19, 2019 [id number] September 04, 2019 PAMELA RAMSEY ACCU-CHEK CHARLES PLUS (GLUCOSE) TEST STRIP Discontinued USE 1 STRIP FOR TESTING TWO TIMES PER WEEK - DIRECTED TO TEST BLOOD GLUCOSE 50 Jul 25, 2019 [id number] Nov 12, 2018 PAMELA RAMSEY ALBUTEROL SO4 90MCG/ACTUAT (CFC-F) INHL,ORAL,6.7GM Active INHALE 2 PUFFS BY ORAL INHALATION EVERY 4 HOURS NEEDED FOR BREATHING. SHAKE WELL. RINSE MOUTHPIECE FREQUENTLY TO PREVENT CLOGGING. USE NEEDED FOR SHORTNESS OF AIR/WHEEZING FOR BREATHING. SHAKE WELL. RINSE MOUTHPIECE FREQUENTLY TO PREVENT CLOGGING. USE NEEDED FOR SHORTNESS OF AIR/WHEEZING 1 Dec 19, 2019 [id number] September 04, 2019 PAMELA RAMSEY CB ALCOHOL PREP PAD Active USE 1 PAD ON SKIN BIW TO CLEAN AND DISINFECT THE SKIN 200 Sep 29, 2020 [id number] Sep 30, 2019 [facility] ALCOHOL PREP PAD Discontinued USE 1 PAD ON SKIN BI W TO CLEAN AND DISINFECT THE SKIN 200 Dec 19, 2019 [id number] Jun 06, 2019 PAMELA RAMSEY CBGUILLERMO ALCOHOL PREP PAD Discontinued USE 1 PAD ON SKIN BI W TO CLEAN AND DISINFECT THE SKIN 200 Jul 25, 2019 [id number] Nov 12, 2018 PAMELA RAMSEY [facility] ASPIRIN 25MG/DIPYRIDAMOLE 200MG CAP,SA Active T CHAPIN 1 CAPSULE BY MOUTH TWO TIMES A DAY - SWALLOW WHOLE. DO NOT CRUSH OR CHEW. FOR RECURRENT TIA/STROKE 180 Dec 19, 2019 [id number] Dec 20, 2018 PAMELA RAMSEY [facility] ASPIRIN 25MG/DIPYRIDAMOLE 200MG CAP,SA Discontinued T CHAPIN 1 CAPSULE BY MOUTH TWO TIMES A DAY - SWALLOW WHOLE. DO NOT CRUSH OR CHEW. FOR RECURRENT TIA/STROKE 180 Feb 06, 2019 [id number] Sep 28, 2018 ZACHARY GRECO [facility] ASPIRIN 81MG TAB,EC Non- VA TAKE ONE TABLET BY MOUTH ONCE A DAY Non-VA Documented by: PADMA LONG nted at: [facility] ATORVASTATIN CA 80MG TAB Active TAKE ONE TABLET BY MOUTH AT BEDTIME FOR CHOLESTEROL - REPORT ANY UNEXPLAINED MUSCLE PAIN/WEAKNESS TO YOUR PROVIDER 90 Dec 19, 2019 [id number] September 04, 2019 PAMELA RAMSEY ATORVASTATIN CA 80MG TAB Discontinued TAKE ONE TABLET BY MOUTH AT BEDTIME FOR CHOLESTEROL - REPORT ANY UNEXPLAINED MUSCLE PAIN/WEAKNESS TO YOUR PROVIDER 90 Dec 20, 2018 [id number] Nov 12, 2018 PAMELA RAMSEY BUDESONIDE 160MCG/FORMOTEROL FUM 4.5MCG/SPRAY INHL,ORAL,10.2 GM Active INHALE 2 PUFFS BY MOUTH TWO TIMES A DAY FOR BREATHING. SHAKE WELL. RINSE MOUTH AND SPIT AFTER EACH USE. 3 Apr 24, 2020 [id number] August 22, 2019 LISSA OATES [facility] CALCIUM/VITAMIN D TAB No n-VA TAKE BY MOUTH ONCE A DAY Non-V A Documented by: PADMA LONG nted at: [facility] NESS CARBOXYMETHYLCELLULOSE NA 0.5% SOLN,OPH Active INSTILL ONE DROP IN BOTH EYES FOUR TIMES A DAY FOR DRY EYES 15 Feb 01, 2020 [id number] September 03 0 [facility] DICLOFENAC NA 1% GEL,TOP Discontinued APPLY 2 GRAMS A FFECTED AREA TWO TIMES A DAY NEEDED FOR PAIN AND INFLAMMATION. DO NOT EXCEED 16GM DAILY TO ANY AFFECTED JOINT OF LOWER EXTREMITIES. DO NOT EXCEED 8GM DAILY TO ANY AFFECTED JOINT OF UPPER EXTREMITES. DO NOT EXCEED TOTAL DOSE OF 32GM DAILY FOR ALL JOINTS. 100 Oct 31, 2018 [id number] Oct 06, 2018 ANAYELI KIRKPATRICK [facility] DICLOFENAC NA 1% GEL,TOP APPLY 2 GRAMS A FFECTED AREA TWO TIMES A DAY NEEDED FOR PAIN AND INFLAMMATION. DO NOT EXCEED 16GM DAILY TO ANY AFFECTED JOINT OF LOWER EXTREMITIES. DO NOT EXCEED 8GM DAILY TO ANY AFFECTED JOINT OF UPPER EXTREMITES. DO NOT EXCEED TOTAL DOSE OF 32GM DAILY FOR ALL JOINTS. 100 Jan 17, 2019 [id number] Dec 20, 2018 PAMELA RAMSEY FLUTICASONE PROPIONATE 50MCG/SPRAY SOLN,NASAL,16GM Active INSTILL 1 SPRAY IN EACH NOSTRIL ONCE A DAY SHAKE GENTLY BEFORE USE! - MUST BE USED DIRECTED FOR 3 WEEKS TO PROVIDE BENEFIT. * NO EARLY REFILLS * 1UNIT = 30DAYS AT 4 PF/DAY OR 60DAYS AT 2PF/DAY 2 Dec 19, 2019 [id number] August 26, 2019 PAMELA RAMSEY KETOTIFEN 0.025% SOLN,OPH Active INSTILL 1 DROP IN BOTH EYES TWO TIMES A DAY FOR RELIEF OF ALLERGY SYMPTOMS IN EYE(S) 10 Feb 01, 2020 [id number] September 04, 2019 [facility] LANCET,SOFTCLIX Active USE LANCET BIW FOR TESTING BL OOD GLUCOSE DIRECTED 100 Sep 29, 2020 [id number] Sep 30, 2019 [facility] LANCET,SOFTCLIX Discontinued USE LANCET BIW FO R TESTING BLOOD GLUCOSE DIRECTED 100 Dec 19, 2019 [id number] Jun 06, 2019 [facility]ELA RAMSEY [facility] LANCET,SOFTCLIX Discontinued USE LANCET BIW FO R TESTING BLOOD GLUCOSE DIRECTED 100 Jul 25, 2019 [id number] Nov 12, 2018 PAMELA RAMSEY LISINOPRIL 40MG TAB Non- VA TAKE ONE-HALF TABLET BY MOUTH EVERY MORNING Non-VA Documented by: PAMELA RAMSEY nted at: [facility] LORATADINE/PSEUDOEPHEDRINE TAB,SA Non-VA TAKE BY MOUTH No n-VA Documented by: JUAN LANG nted at: ARTUR BLAS [facility] MAGNESIUM OXIDE 250MG TAB Non-VA TAKE [...] ACID (REPLACES ACIPHEX) 180 Dec 19, 2019 [id number] August 26, 2019 PAMELA RAMSEY POTASSIUM GLUCONATE TAB Non-VA TAKE 595MG BY MOUTH ONCE A DAY Non-VA Documented by: PADMA LONG nted at: [facility] NESS PRASUGREL HCL 10MG TAB N on-VA TAKE ONE TABLET BY MOUTH ONCE A DAY Non-VA Documented by: KATHERINE MATT Docume nted at: [facility] PREGABALIN 150MG CAP,ORAL Non-VA TAKE 1 [...] Documented by: ANAYELI KIRKPATRICK Docume nted at: [facility] TERBINAFINE HCL 1% CREAM,TOP Active APPLY LIGHT LY TO AFFECTED AREA TWO TIMES A DAY FOR INFECTION Sep 23, 2020 [id number] Sep 24, 2019 ADRIEL HERNANDEZ UREA 20% CREAM,TOP Active APPLY LIGHTLY (20%) TO AFFECTED AREA TWO TIMES A DAY NEEDED TO PROMOTE HEALING,RUB IN UNTIL COMPLETELY ABSORBED*FOR TOPICAL USE ONLY* APPLY TO BOTH FEET DIRECTED. 90 Sep 25, 2020 [id number] Sep 26, 2019 ADRIEL HERNANDEZ Problems (Conditions): [...] Alcohol intake above recommended sensible limits Active 719795515 PADMA LONG [facility] Allergic conjunctivitis Active 980966532 ARDARANEDA [facility] Bilateral senile combined form cataracts of eyes Active 25687569621 9108 [facility] Bilateral tinnitus Active [id number] CHASTITY JEAN [facility] Coronary arteriosclerosis Active 54766436 September 08, 2014 Entered By: PADMA LONG Comment: hx of ptca to RCA several yrs. agoSeptember 08, 2014 Entered By: PADMA LONG Comment: heart cath 09/01/14, neg. / previous stent to RCA,, via abida meneses ks HATCHER, JENNEY R [facility] Diabetes mellitus Active 18772003 PAMELA RAMSEY [facility] Disorder of pancreas Active 7790849 September 08, 2014 Entered By: PADMA LONG Comment: 2.5cm low density lseion in bodyMay 2014 Entered By: PADMA LONG Comment: question of communication with pancreatic ductMay 2014 Entered By: PADMA LONG Comment: favored to be cystic pancreatic cancerMa2014 Entered By: PADMA LONG Comment: per abdominal CT 09/01/14, via abida meneses ks FRAZIER, JAY J [facility] Dry eyes Active 307664435 [facility] Gastro-esophageal reflux disease without esophagitis ( SNOMED CT 659704030) Active 348566721 ALF GUEVARA [facility] Hyperlipidemia (SNOMED CT 48514479) Active 29180557 BRAULIOPAMELA TOMAS [facility] Lung mass Active 437192895 September 08, 2014 E ntered By: PADMA [...] abida meneses ksJun 2014 Entered By: PADMA LOGN Comment: per path report- mod. differentiated bronchogenic adenoca. 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 Active 38752007 KATHERINE MATT [facility] Obesity Active 727049041 [facility] Obstructive sleep apnea syndrome (SNOMED CT 69817128) Active 524984 015 [place] [facility] Pancreatic cyst Active 15271079 JAYLENE GUEVARA [facility] Papilloma of right eyelid Active [id number] [facility] Polyp of colon Active 03966316 Jan 23 Entered By: PADMA LONG Comment: c-scope 01/17/16, multiple benign colonic polypsJun 28, 2017 Entered By: PADMA LONG Comment: c-scope,06/25/17,[facility], three benign polyps- sigmoid colon, transverse colon,cecum. see path report cprs [facility] Pulmonary emphysema Active 69945390 0 BRIANA [facility] Sensorineural hearing loss, bilateral Active 295610593 CHASTITY JEAN [facility] Snoring Active 04825886 SONG BULLOCK [facility] Type 2 diabetes mellitus without complication Active 575371768 [facility] Environmental Allergies (ICD-9-CM 477.9) Inactive 477.9 Dec 18, 2017 PADMA LONG [facility] External hemorrhoids without mention of complication (ICD-9- CM 455.3) Inactive 455.3 Dec 18, 2017 PADMA LONG [facility] Impotence of organic origin (ICD-9-CM 607.84) Inactive 607.84 Dec 18, 2017 PADMA LONG [facility] Screening for Lipoid disorders (ICD-9-CM V77.91) Inactive V77.91 Jan 18, [address] [facility] Stye * (ICD-9-CM 373.11) Inactive 373.11 Dec 18, 8 Jan 18, 2007 Entered By: PADMA LONG Comment: bilat lower lids, chronic/recurrent [facility]AD[facility] Tobacco Use Disorder, Continuous Inactive 305.1 Dec 18, 2017 Jan 18, 2007 Entered By: PADMA LONG Comment: one ppd PADMA LONG [facility] Radiology Reports: +/- 30 days of the encounter Radiology Reports For cases when an order for radiology services may have bee n completed prior to the date of the Encounter, the report list includes the Rad iology Reports that were completed up to 30 days before date of the Encounter. F or cases when an order for radiology services may have been completed after the date of the Encounter, the report list also includes the Radiology Reports that were completed up to 30 days after date of the Encounter. The data comes from [facility] treatment facilities. Date/Time Radiology Report Provider Source Jun 25, 2019 10:[address] CHEST/THORAX W/CONT: HERBERTH BOB [id number] -[id number] M Exm Date: JUN 25, 2019@10:47 Req Phys: TANK BARRETO Pat Loc: [place]-ONCOLOGY 3 (Req'g Loc) Img Loc: [place]-CT (RAD) Service: Unknown (Case [id number] COMPLETE) CT CHEST/THORAX W/C ONT (CT Detailed) CPT:12334 Contrast Media : Non-ionic Iodinated Reason for Study: annual survellance Clinical History: NSCLCA hx Report Status: Verified Date Reported: JUN 25, 2019 Date Verified: JUN 25, 2019 Maintenance And Engineering Manager E-Sig: Report: INDICATION: annual survellance non-small cell lung cancer TIME OF CURRENT STUDY: 06/25/2019 10:47 AM COMPARISON: 06/26/2018 Radiation dose for chest, abdomen, and pelvic CT CTDIvol: 14.7 mGy DOSE LENGTH PRODUCT: 1820 mGy*cm TECHNIQUE: A chest CT was performed with intravenous contrast from the thoracic inlet through the adrenal glands. FINDINGS: Postsurgical changes can be seen in the right hilar region. The referenced nodes were remeasured. There is a subcarinal lymph node seen measuring 1.5 x 2.1 cm in image 32 series 3 which when remeasured on previous scan and similar axes, measured 1.4 x 2.4 cm. This is not significantly changed. An left hilar lymph node is seen on image 31 measuring 1.7 x 2.6 cm. It previously measured 1.2 x 2.1 cm when remeasured. It has increased mildly in size when compared to prior study. It measured 1.2 x 2.0 cm in June 2017. A AP window node is seen on image 24 series 3 which was not measured on previous exam. It currently measures 1.3 x 1.7 cm as compared to prior measurements of 1.2 x 1.9 cm. No other sites of increasing adenopathy are seen on this exam. There is mild coronary calcification. The descending thoracic aorta is borderline dilated at 3.0 cm in image 29 series 3 which is unchanged. The ascending aorta is not dilated nor is the main pulmonary artery. The heart is not enlarged. Lung windows demonstrates extensive emphysematous change. There is some scarring seen on the right. These findings are unchanged. No distinct pulmonary nodule or mass is identified. A few stable periFissural lymph nodes are identified along the left major fissure which are unchanged. There is no lytic or blastic bone destruction. Impression: 1. A single node, located in the left hilar region, has demonstrated a mild increase in size compared to prior study. The other lymph nodes are stable in size. The lung parenchyma demonstrates extensive emphysematous change with some scarring but no new nodules. 2. Borderline ectasia of the descending thoracic aorta. This is stable. Primary Diagnostic Code: SIGNIFICANT ABNORMALITY, ATTN NEEDED Primary Interpreting Staff: RALPH GUZMAN, Radiologist (Maintenance And Engineering Manager, no e-sig) /RALPH [facility] 15 Jun 25, 2019 10:[address] ABD & PELV W/CONTRAST: HERBERTH BOB [id number] M Ex Date: JUN 25, 2019@10:47 Req Phys: TANK BARRETO Loc: [place]-ONCOLOGY 3 (Req'g Loc) Img Loc: [place]-CT (RAD) Service: Unknown (Case [id number] COMPLETE) CT ABD & PELV W/CON TRAST (CT Detailed) CPT:43136 Contrast Media : Non-ionic Iodinated Reason for Study: surveillance Clinical History: NSCLCA hx Report Status: Verified Date Reported: JUN 25, 2019 Date Verified: JUN 25, 2019 Maintenance And Engineering Manager E-Sig: Report: INDICATION: surveillance non-small cell lung cancer TIME OF CURRENT STUDY: 06/25/2019 10:47 AM COMPARISON: 06/26/2018 Radiation dose included on separately reported chest CT TECHNIQUE: An abdominal CT was performed with intravenous contrast and with oral contrast from the domes of the diaphragm to the iliac crests. A pelvic CT was performed with intravenous and with oral contrast from the iliac crests through the pubic symphysis. ABDOMEN AND PELVIC CT FINDINGS: The pancreas demonstrates a subtle low dense finding within the body on image 26 series 2 measuring 1.7 x 1.7 cm. This is not appreciably changed from prior study where it measured 1.9 x 1.9 cm. It appears to straddle the pancreatic duct which is otherwise nondilated. The remainder the pancreas is unremarkable. There is no pancreatic calcifications. There is no biliary ductal dilatation and the gallbladder is unremarkable on CT. The lung bases, liver, spleen, adrenal glands, and kidneys are normal. No significant adenopathy, soft tissue masses, or abnormal fluid collections are identified. No dilated bowel is seen. The appendix is not visualized however no secondary findings of appendicitis are noted.. There is mild ectasia of the distal abdominal aorta which measures up to 2.9 cm in AP dimension which is unchanged. There is moderate associated atherosclerosis. No inflammatory processes are identified. No lytic or blastic bone destruction is seen. Impression: 1. Stable abdominal and pelvic CT. 2. Stable small subtle hypodense finding within the pancreatic body. This may represent an IPMN, given its appearance. It is difficult to determine if this involves a branch duct or the main duct. In general, abdominal MR with and without IV contrast as well as MRCP are the study of choice for evaluation of such a process. Primary Diagnostic Code: NO ALERT REQUIRED Primary Interpreting Staff: RALPH GUZMAN, Radiologist (Maintenance And Engineering Manager, no e-sig) /RALPH [facility] 15 Pathology Reports: +/- 30 days of the encounter No Data Provided for This Section Encounter Notes: All associated encounter notes This section contains the clinical notes associated to the Encounter. Date/Time Encounter Note(s) Provider Source Jun 25, 2019 03:27 PM HEMATOLOGY AND ONCOLOGY NOTE : LOCAL TITLE: [place]-ONCOLOGY/FOLLOW-UP (BP,O) STANDARD TITLE: HEMATOLOGY AND ONCOLOGY NOTE DATE OF NOTE: JUN 25, 2019@15:27 ENTRY DATE: JUN 25, 2019@15:27:09 AUTHOR: TANK BARRETO EXP COSIGNER: URGENCY: STATUS: COMPLETED CC: Dx: Lung Cancer Past Hx: Patient is doing well. No f/c/s. PHYSICAL EXAM: WEIGHT: 223.8 lb [101.7 kg] (06/25/2019 14:14) BMI: 31.3 BLOOD PRESSURE: 119/80 (06/25/2019 14:14) PULSE: 86 (06/25/2019 14:14) RESPIRATIONS: 18 (06/25/2019 14:14) PAIN SCALE: 3 (06/25/2019 14:14) TEMPERATURE:98.6 F [37.0 C] (06/25/2019 14:14) Heart: RRR, no murmur Lungs: CTA Abdomen: soft, no tenderness, + bs Ext: No edema Lymphatics: No LAD Labs: CBC: ATY LYM: 1 (12/18/16 08:30) BANDS: 1 (12/18/16 08:30) BASO %: 0.9 (06/25/19 10:48) BASO,ABS: 0.1 (06/25/19 10:48) EO %: 1.7 (06/25/19 10:48) EO, ABS: 0.1 (06/25/19 10:48) EOSINO: 4 (12/18/16 08:30) HCT: 47.6 (06/25/19 10:48) HGB: 15.2 (06/25/19 10:48) IG %: 0.3 (06/25/19 10:48) IG, ABS: 0.02 (06/25/19 10:48) LYMPH %: 26.3 (06/25/19 10:48) LYMPH,ABS:2.1 (06/25/19 10:48) LYMPHS: 15 (12/18/16 08:30) MCH: 27.1 (06/25/19 10:48) MCHC: 31.9 (06/25/19 10:48) MCV: 84.8 (06/25/19 10:48) MONO%: 9.6 (06/25/19 10:48) MONO, ABS:0.8 (06/25/19 10:48) MONOS: 3 (12/18/16 08:30) MPV: 10.6 (06/25/19 10:48) NEUT %: 61.2 (06/25/19 10:48) NEUT,ABS: 4.8 (06/25/19 10:48) NORMOCY: YES (12/18/16 08:30) PLT: 270 (06/25/19 10:48) POLYS: 76 (12/18/16 08:30) RBC: 5.61 (06/25/19 10:48) RDW: 17.8 (06/25/19 10:48) WBC: 7.8 (06/25/19 10:48) Plan: 1. Stage IIA NSCLC (adenocarcinoma) s/p resection (09/2014) and adjuvant chemotherapy. Scans show minimal increase in size of lung lesion. Will repeat scan in 6 months. 2. 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 Stable on most recent MRI. 3. Pancreatic cystic lesion. CA 19-[address] shows minimal change. Will refer back to GI. Allergies: PLAVIX, BRILINTA Allergies reviewed, edited in CPRS as appropriate and confirmed by patient: No Active Outpatient Medications (including Supplies): Outpatient [...] with all VA providers and non-VA providers. Return to Clinic. /gisell/ Tank Barreto MD Staff Oncologist Signed: 06/25/2019 15:29 TANK BARRETO [facility] Jun 25, 2019 02:15 PM NURSING OUTPATIENT NOTE: LOCAL TITLE: WI-SPECIALTY PRE-APPT STANDARD TITLE: NURSING OUTPATIENT NOTE DATE OF NOTE: JUN 25, 2019@14:15 ENTRY DATE: JUN 25, 2019@14:15:17 AUTHOR: MORRIS BHAT EXP COSIGNER: URGENCY: STATUS: COMPLETED WI-PATIENT EDUCATION: Patient education done at this encounter: Readiness to learn: Patient appears ready to learn. Patient received BASIC HEALTH PRACTICES & SAFETY informaiton. Level of Understanding: Good Preferred Method(s) of Learning: ...Listening WI-PAIN: Pain Documentation: Pain level 3 or less. Depression Screening: PHQ-2+I9 Depression Screening Score: 0 [...] yourself in some way Not at all Tobacco Use Screening: The patient is a former tobacco user. The patient quit fifteen or more years ago. Specialty Pre-Appt Reason for appointment: fu with labs 64 y/o MALE ALLERGIES: PLAVIX, BRILINTA Allergies [...] > 7, repeat in 3 months /gisell/ MORRIS BHAT LPN Signed: 06/25/2019 14:17 MORRIS BHAT [facility]
--- OUTSIDE RECORDS SUMMARY | 2019-11-11 02:19 | XMS REPORT | Encounter Summary ---
Author Author Department of [facility] HERBERTH kline Organization Department of [facility] Address [address] [place] [address] Phone Unavailable Care Team Providers Care Architectural Engineering Teacher Name Role Phone ADRIEL HERNANDEZ PCP Unavailable Insurance Providers: All historical and current No Data Provided for This Section Selected Encounter This section includes the information on record at [place] for the Encounter. Date/Time Encounter Type Encounter Description Reason Provider Source Jun 17, 2019 04:24 PM Outpatient Encounter [facility] 15 IHE Encounter Template Text not used by [place] Assessments - Encounter Diagnoses No Data Provided for This Section Plan of Treatment: Future Appointments (+ 6 months) and Future Tests (+/- 45 day s) The Plan of Treatment section includes future care activities for the patient fr om all [place] treatment facilities. This section includes future appointments and fu ture orders which are active, pending or scheduled. Future Appointments This section includes appointments that were scheduled t o occur 6 months from the date of the Encounter, up to a maximum of 20 appointme nts. The data comes from all [place] treatment facilities. Appointment Date/Time Appointment Type Appointment Facili ty Name Jun 25, 2019 11:30 AM AMBULATORY - NONE [facility] C Jun 25, 2019 01:15 PM AMBULATORY - MEDICINE [facility] Jul 23, 2019 11:00 AM AMBULATORY - NONE [facility] C Jul 25, 2019 08:00 AM AMBULATORY - NONE [facility] C Aug 07, 2019 10:30 AM AMBULATORY - MEDICINE [facility] Sep 23, 2019 11:15 AM AMBULATORY - NONE [facility] Sep 23, 2019 11:30 AM AMBULATORY - MEDICINE [facility] Oct 07, 2019 09:15 AM AMBULATORY - NONE [facility], V[facility] 15 Active, Pending, [...] the Encounter. The data comes from all [place] treatment facilities. Test Date/Time Test Type Test Details Facility Name Jun 18, 2019 10:07 AM Consult Order [facility] CARDIOLOGY-[id number] Cons Tack Coverer's Choice [facility] Surgical Procedures: All associated to the encounter No Data Provided for This Section Lab Results: +/- 30 days of the encounter This section includes the Chemistry and Hematology Lab R esults on record with [place] for the patient. Radiology Reports and Pathology Report s are provided separately, in subsequent sections. Lab Results This section contains the Chemistry/Hematology Results usha t were resulted 30 days before or 30 days after the date of the Encounter. Date/Time Source Result Type Result - Unit Interpretation Reference Range Comment Jun 25, 2019 10:48 AM [facility] CBC & DIFF Specimen Type: BLOOD [...] % Jun 25, 2019 10:40 AM [facility] [place] [facility] CA 19-9 Specimen Type: SERUM Comment: CA 19-9 This test was performed using the Siemens chemiluminescent method. Values obtained from different assay methods cannot be used inter- changeably. CA 19-9 levels, regardless of value, should not be interpreted as absolute evidence of the presence or absence of disease. CA 19-9 7 U/mL <34 Jun 25, 2019 10:40 AM [facility] [place] [facility] COMPREHENSIVE METABOLI C PANEL Specimen Type: [...] >60 Jun 25, 2019 10:40 AM [facility] [place] [facility] CREATININE (INCLUDES E GFR) Specimen Type: [...] patient. The data comes from a ll [place] treatment facilities. It does not list Allergies/ADRs that were removed or entered in error. Some allergies/ADRs may be reported in t he Immunization section. Allergen Event Date Event Type Reaction(s) Severity Source BRILINTA September 08, 2014 Propensity to adverse reactions to drug (diso rder) [facility], VISN 15 PLAVIX September 08, 2014 Propensity to adverse reactions to drug (diso rder) [facility], [facility] 15 Medications: VA dispensed (-15 months) and Non-VA Documented (Obtained Outside A) Section Date Range: 1) prescriptions processed by a VA pharmacy in the last 15 m [facility], and 2) all medications recorded in the [place] medical record as "non-VA medic ations". Pharmacy terms refer to [place] pharmacy's work on prescriptions. VA patient s are advised to take their medications as instructed by their health care team. The data comes from all [place] treatment facilities. Glossary of Pharmacy Terms:Active = A prescription that can be filled at the local [place] pharmacy.Active: On Hold = An active prescription that will not be filled until pharmacy resolves the issue.Active: Susp = An active prescription that is not scheduled to be filled yet.Clinic Order = A medication received during a visit to a [place] clinic or emergency department (currently not available).Discontinued [...] may be a prescription from either the [place] or other providers that was filled outside the [place]. Or, it may be an over the [...] TEST BLOOD GLUCOSE 50 Dec 19, 2019 [id number] September 04, 2019 PAMELA RAMSEY ACCU-CHEK CHARLES PLUS (GLUCOSE) TEST STRIP Discontinued USE 1 STRIP FOR TESTING TWO TIMES PER WEEK - DIRECTED TO TEST BLOOD GLUCOSE 50 Jul 25, 2019 [id number] Nov 12, 2018 PAMELA RAMSEY CBGUILLERMO ALBUTEROL SO4 90MCG/ACTUAT (CFC-F) INHL,ORAL,6.7GM Active INHALE 2 PUFFS BY ORAL INHALATION EVERY 4 HOURS NEEDED FOR BREATHING. SHAKE WELL. RINSE MOUTHPIECE FREQUENTLY TO PREVENT CLOGGING. USE NEEDED FOR SHORTNESS OF AIR/WHEEZING FOR BREATHING. SHAKE WELL. RINSE MOUTHPIECE FREQUENTLY TO PREVENT CLOGGING. USE NEEDED FOR SHORTNESS OF AIR/WHEEZING 1 Dec 19, 2019 [id number] September 04, 2019 PAMELA RAMSEY CBGUILLERMO ALCOHOL PREP PAD Active USE 1 PAD ON SKIN BIW TO CLEAN AND DISINFECT THE SKIN 200 Sep 29, 2020 [id number] Sep 30, 2019 MAURICIO RANKIN CBGUILLERMO ALCOHOL PREP PAD Discontinued USE 1 PAD ON SKIN BI W TO CLEAN AND DISINFECT THE SKIN 200 Dec 19, 2019 [id number] Jun 06, 2019 PAMELA RAMSEY ALCOHOL PREP PAD Discontinued USE 1 PAD ON SKIN BI W TO CLEAN AND DISINFECT THE SKIN 200 Jul 25, 2019 [id number] Nov 12, 2018 PAMELA RAMSEY CBGUILLERMO ASPIRIN 25MG/DIPYRIDAMOLE 200MG CAP,SA Active T CHAPIN 1 CAPSULE BY MOUTH TWO TIMES A DAY - SWALLOW WHOLE. DO NOT CRUSH OR CHEW. FOR RECURRENT TIA/STROKE 180 Dec 19, 2019 [id number] Dec 20, 2018 PAMELA RAMSEY ASPIRIN 25MG/DIPYRIDAMOLE 200MG CAP,SA Discontinued T CHAPIN 1 CAPSULE BY MOUTH TWO TIMES A DAY - SWALLOW WHOLE. DO NOT CRUSH OR CHEW. FOR RECURRENT TIA/STROKE 180 Feb 06, 2019 [id number] Sep 28, 2018 ZACHARY GRECO [facility] ASPIRIN 81MG TAB,EC Non- VA TAKE ONE TABLET BY MOUTH ONCE A DAY Non-VA Documented by: PADMA LONG nted at: [facility] ATORVASTATIN CA 80MG TAB Active TAKE ONE TABLET BY MOUTH AT BEDTIME FOR CHOLESTEROL - REPORT ANY UNEXPLAINED MUSCLE PAIN/WEAKNESS TO YOUR PROVIDER 90 Dec 19, 2019 [id number] September 04, 2019 PAMELA RAMSEY ATORVASTATIN CA 80MG TAB Discontinued TAKE ONE TABLET BY MOUTH AT BEDTIME FOR CHOLESTEROL - REPORT ANY UNEXPLAINED MUSCLE PAIN/WEAKNESS TO YOUR PROVIDER 90 Dec 20, 2018 [id number] Nov 12, 2018 PAMELA RAMSEY CB BUDESONIDE 160MCG/FORMOTEROL FUM 4.5MCG/SPRAY INHL,ORAL,10.2 GM Active INHALE 2 PUFFS BY MOUTH TWO TIMES A DAY FOR BREATHING. SHAKE WELL. RINSE MOUTH AND SPIT AFTER EACH USE. 3 Apr 24, 2020 [id number] August 22, 2019 LISSA OATES [facility] CALCIUM/VITAMIN D TAB No n-VA TAKE BY MOUTH ONCE A DAY Non-V A Documented by: PADMA LONG nted at: [facility] CARBOXYMETHYLCELLULOSE NA 0.5% SOLN,OPH Active INSTILL ONE DROP IN BOTH EYES FOUR TIMES A DAY FOR DRY EYES 15 Feb 01, 2020 [id number] September 03 0 NEDA SHAW [facility] DICLOFENAC NA 1% GEL,TOP Discontinued APPLY 2 GRAMS A FFECTED AREA TWO TIMES A DAY NEEDED FOR PAIN AND INFLAMMATION. DO NOT EXCEED 16GM DAILY TO ANY AFFECTED JOINT OF LOWER EXTREMITIES. DO NOT EXCEED 8GM DAILY TO ANY AFFECTED JOINT OF UPPER EXTREMITES. DO NOT EXCEED TOTAL DOSE OF 32GM DAILY FOR ALL JOINTS. 100 Oct 31, 2018 [id number] Oct 06, 2018 ANAYELI KIRKPATRICK [facility] DICLOFENAC NA 1% GEL,TOP APPLY 2 GRAMS A FFECTED AREA TWO TIMES A DAY NEEDED FOR PAIN AND INFLAMMATION. DO NOT EXCEED 16GM DAILY TO ANY AFFECTED JOINT OF LOWER EXTREMITIES. DO NOT EXCEED 8GM DAILY TO ANY AFFECTED JOINT OF UPPER EXTREMITES. DO NOT EXCEED TOTAL DOSE OF 32GM DAILY FOR ALL JOINTS. 100 Jan 17, 2019 [id number] Dec 20, 2018 PAMELA RAMSEY FLUTICASONE PROPIONATE 50MCG/SPRAY SOLN,NASAL,16GM Active INSTILL 1 SPRAY IN EACH NOSTRIL ONCE A DAY SHAKE GENTLY BEFORE USE! - MUST BE USED DIRECTED FOR 3 WEEKS TO PROVIDE BENEFIT. * NO EARLY REFILLS * 1UNIT = 30DAYS AT 4 PF/DAY OR 60DAYS AT 2PF/DAY 2 Dec 19, 2019 [id number] August 26, 2019 PAMELA RAMSEY KETOTIFEN 0.025% SOLN,OPH Active INSTILL 1 DROP IN BOTH EYES TWO TIMES A DAY FOR RELIEF OF ALLERGY SYMPTOMS IN EYE(S) Feb 01, 2020 [id number] September 04, 2019 NEDA SHAW [facility] LANCET,SOFTCLIX Active USE LANCET BIW FOR TESTING BL OOD GLUCOSE DIRECTED Sep 29, 2020 [id number] Sep 30, 2019 MAURICIO RANKIN [facility] LANCET,SOFTCLIX Discontinued USE LANCET BIW FO R TESTING BLOOD GLUCOSE DIRECTED Dec 19, 2019 [id number] Jun 06, 2019 PAMELA RAMSEY LANCET,SOFTCLIX Discontinued USE LANCET BIW FO R TESTING BLOOD GLUCOSE DIRECTED Jul 25, 2019 [id number] Nov 12, 2018 PAMELA RAMSEY LISINOPRIL 40MG TAB Non- VA TAKE ONE-HALF TABLET BY MOUTH EVERY MORNING Non-VA Documented by: PAMELA RAMSEY nted at: [facility] LORATADINE/PSEUDOEPHEDRINE TAB,SA Non-VA TAKE BY MOUTH No n-VA Documented by: JUAN LANG nted at: [facility] MAGNESIUM OXIDE 250MG TAB Non-VA TAKE [...] ACID (REPLACES ACIPHEX) 180 Dec 19, 2019 [id number] August 26, 2019 PAMELA RAMSEY POTASSIUM GLUCONATE TAB Non-VA TAKE 595MG BY MOUTH ONCE A DAY N on-VA Documented by: PADMA LONG Docume nted at: [facility] PRASUGREL HCL 10MG TAB N on-VA TAKE ONE TABLET BY MOUTH ONCE A DAY Non-VA Documented by: KATHERINE MATT Docume nted at: [facility] PREGABALIN 150MG CAP,ORAL Non-VA TAKE 1 CAPSULE [...] ANAYELI KIRKPATRICK Docume nted at: [facility] TERBINAFINE HCL 1% CREAM,TOP Active APPLY LIGHT LY TO AFFECTED AREA TWO TIMES A DAY FOR INFECTION 90 Sep 23, 2020 [id number] Sep 24, 2019 ADRIEL HERNANDEZ UREA 20% CREAM,TOP Active APPLY LIGHTLY (20%) TO AFFECTED AREA TWO TIMES A DAY NEEDED TO PROMOTE HEALING,RUB IN UNTIL COMPLETELY ABSORBED*FOR TOPICAL USE ONLY* APPLY TO BOTH FEET DIRECTED. 90 Sep 25, 2020 [id number] Sep 26, 2019 ADRIEL HERNANDEZ Problems (Conditions): All historical and current Section Date Range: From patient's date of to the date document was create d. This section includes a list of Problems (Conditions) know n to [facility] for the patient. It includes both active and inacti ve problems (conditions). The data comes from all [place] treatment facilities. Problem Status Problem Code Date of Onset Date of Resolution Comm ent(s) Provider Source Alcohol intake above recommended sensible limits Active [id number] PADMA LONG [facility] Allergic conjunctivitis Active 714642881 [place] Luda SIDDIQUI [facility] Bilateral senile combined form cataracts of eyes Active 53440629541 9108 [place] [facility] Bilateral tinnitus Active [id number] CHASTITY JEAN [facility] Coronary arteriosclerosis Active 91060910 September 08, 2014 Entered By: PADMA LONG Comment: hx of ptca to RCA several yrs. agoSeptember 08, 2014 Entered By: PADMA LONG Comment: heart cath 09/01/14, neg. / previous stent to RCA,, via abida meneses ks HATCHER, JENNEY R [facility] Diabetes mellitus Active 38239702 PAMELA RAMSEY [facility] Disorder of pancreas Active 7434987 September 08, 2014 Entered By: PADMA LONG Comment: 2.5cm low density lseion in bodyMay 2014 Entered By: PADMA LONG Comment: question of communication with pancreatic ductMay 2014 Entered By: PADMA LONG Comment: favored to be cystic pancreatic cancerMay 2014 Entered By: PADMA LONG Comment: per abdominal CT 09/01/14, via abida meneses ks FRAZIER, JAY J ROBERT [facility] Dry eyes Active 839775054 [place] [facility] Gastro-esophageal reflux disease without esophagitis ( SNOMED CT 431293739) Active 093744236 ALF GUEVARA [facility] Hyperlipidemia (SNOMED CT 28052151) Active 43882994 PAMELA RAMSEY [facility] Lung mass Active 195491893 September 08, 2014 E ntered By: PADMA [...] report- mod. differentiated bronchogenic adenoca. 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 Active 44792016 KATHERINE MATT [facility] Obesity Active 060312451 [facility] Obstructive sleep apnea syndrome (SNOMED CT 53071145) Active 526004 015 PHILIPPE DOUGLASS [facility] Pancreatic cyst Active 57845020 JAYLENE GUEVARA [facility] Papilloma of right eyelid Active [id number] NEDA SHAW [facility] Polyp of colon Active 22712292 Jan 23 Entered By: PADMA LONG Comment: c-scope 01/17/16, multiple benign colonic polypsJun 28, 2017 Entered By: PADMA LONG Comment: c-scope,06/25/17,[facility], three benign polyps- sigmoid colon, transverse colon,cecum. see path report cprs SHARRON TORRES [facility] Pulmonary emphysema Active 42313861 0 BRIANA GAVIN [facility] Sensorineural hearing loss, bilateral Active 023210740 CHASTITY JEAN [facility] Snoring Active 55125883 SONG BULLOCK [facility] Type 2 diabetes mellitus without complication Active 478196575 NEDA SHAW [facility] Environmental Allergies (ICD-9-CM 477.9) Inactive 477.9 Dec 18, 2017 PADMA LONG [facility] External hemorrhoids without mention of complication (ICD-9- CM 455.3) Inactive 455.3 Dec 18, 2017 PADMA LONG [facility] Impotence of organic origin (ICD-9-CM 607.84) Inactive 607.84 Dec 18, 2017 PADMA LONG [facility] Screening for Lipoid disorders (ICD-9-CM V77.91) Inactive V77.91 Jan 18, 2007 PADMA LONG [facility] Stye * (ICD-9-CM 373.11) Inactive 373.11 Dec 18, 201 8 Jan 18, 2007 Entered By: PADMA LONG Comment: bilat lower lids, chronic/recurrent PADMA LONG [facility] Tobacco Use Disorder, Continuous Inactive 305.1 Dec 18, 2017 Jan 18, 2007 Entered By: PADMA LONG Comment: one ppd PADMA LONG [facility] Radiology Reports: +/- 30 days of [...] of the Encounter. The data comes from [facility] treatment facilities. Date/Time Radiology Report Provider Source Jun 25, 2019 10:[address] CHEST/THORAX W/CONT: HERBERTH BOB [id number] -[id number] M Exm Date: JUN 25, 2019@10:47 Req Phys: CHAPO BARRETO Loc: WI-ONCOLOGY 3 (Req'g Loc) Img Loc: WI-CT (RAD) Service: Unknown (Case [id number] COMPLETE) CT CHEST/THORAX W/C ONT (CT Detailed) CPT:58961 Contrast Media : Non-ionic Iodinated Reason for Study: annual survellance Clinical History: NSCLCA hx Report Status: Verified Date Reported: JUN 25, 2019 Date Verified: JUN 25, 2019 Operations Officer [employer]float E-Sig: Report: INDICATION: annual survellance non-small cell [...] NEEDED Primary Interpreting Staff: RALPH GUZMAN, Radiologist (Operations Officer Afloat, no e-sig) /RALPH [facility] 15 Jun 25, 2019 10:[address] ABD & PELV W/CONTRAST: HERBERTH BOB [id number] -[id number] M Exm Date: JUN 25, 2019@10:47 Req Phys: CHAPO BARRETO Pat Loc: WI-ONCOLOGY 3 (Req'g Loc) Img Loc: WI-CT (RAD) Service: Unknown (Case [id number] COMPLETE) CT ABD & PELV W/CON TRAST (CT Detailed) CPT:52661 Contrast Media : Non-ionic Iodinated Reason for Study: surveillance Clinical History: NSCLCA hx Report Status: Verified Date Reported: JUN 25, 2019 Date Verified: JUN 25, 2019 Operations Officer [employer] E-Sig: Report: INDICATION: surveillance non-small cell lung [...] REQUIRED Primary Interpreting Staff: RALPH GUZMAN, Radiologist (Operations Officer Afloat, no e-sig) /RALPH [facility] 15 Pathology Reports: +/- 30 days of the encounter No Data Provided for This Section Encounter Notes: All associated encounter notes This section contains the clinical notes associated to the Encounter. Date/Time Encounter Note(s) Provider Source Jun 17, 2019 04:24 PM NONVA NOTE: LOCAL TITLE: COMMUNITY CARE-COORDINATION NOTE WI STANDARD TITLE: NONVA NOTE DATE OF NOTE: JUN 17, 2019@16:24 ENTRY DATE: JUN 17, 2019@16:24:18 AUTHOR: RAZ MARQUEZ COSIGNER: URGENCY: STATUS: COMPLETED Clinical Note: RFS received via right fax Requested Services: Cardiology is requesting continuation of care. Provider: Dr. Beba Serna Dx: CAD Sending documents via secure email for your review. Please place [facility] care cardiology consult if agree with need. /es/ RAZ MARQUEZ Signed: 06/17/2019 16:27 Receipt Acknowledged By: * AWAITING SIGNATURE * PAMELA RAMSEY * AWAITING SIGNATURE * SHANIQUA SCHMIDT MARTINE E ROBERT J. DOLE [facility]
--- OUTSIDE RECORDS SUMMARY | 2019-11-11 02:19 | XMS REPORT | Encounter Summary ---
Author Author Department of [facility] HERBERTH kline Organization Department of [facility] Address [address] [place] [address] Phone Unavailable Care Team Providers Care Fish And Game Warden Name Role Phone MARY ADRIEL PCP Unavailable Insurance Providers: All historical and current No Data Provided for This Section Selected Encounter This section includes the information on record at [place] for the Encounter. Date/Time Encounter Type Encounter Description Reason Provider Source Apr 14, 2019 10:00 AM Outpatient Encounter OPHTHALMOLOGY ICD-1 0-CM D23.112 Other benign neoplasm skin/ right lower eyelid, inc canthus with Provider Comments: Other benign neoplasm of skin of right lower eyelid, including canthus KATHERINE MATT [facility] IHE Encounter Template Text not used by [place] Assessments - Encounter Diagnoses This section includes the primary and secondary diag noses documented for the Encounter. Date/Time Primary/Secondary Diagnosis Diagnosis Name Provider Source Apr 14, 2019 10:16 AM PRIMARY Other benign neopl asm skin/ right lower eyelid, inc canthus MARYURI REICH [facility] Plan of Treatment: Future Appointments (+ 6 months) and Future Tests (+/- 45 day s) The Plan of Treatment section includes future care activities for the patient fr om all [place] treatment facilities. This section includes future appointments and fu ture orders which are active, pending or scheduled. Future Appointments This section includes appointments that were scheduled t o occur 6 months from the date of the Encounter, up to a maximum of 20 appointme nts. The data comes from all [facility]. Appointment Date/Time Appointment Type Appointment Facili ty Name Apr 28, 2019 11:00 AM AMBULATORY - NONE ARTUR BLAS [facility] Jun 25, 2019 11:30 AM AMBULATORY - NONE [facility] BL[facility] Jun 25, 2019 01:15 PM AMBULATORY - MEDICINE [facility] BL[facility] Jul 23, 2019 11:00 AM AMBULATORY - NONE [facility] BLAS [facility] Jul 25, 2019 08:00 AM AMBULATORY - NONE [facility] BLAS [facility] Aug 07, 2019 10:30 AM AMBULATORY - MEDICINE [facility] Sep 23, 2019 11:15 AM [facility]ATORY - NONE [facility] Sep 23, 2019 11:30 AM [facility] - MEDICINE [facility] Oct 07, 2019 09:15 AM AMBULATORY - NONE [facility] T, VISN 15 Active, Pending, [...] the Encounter. The data comes from all [facility]. Test Date/Time Test Type Test Details Facility Name Apr 01, 2019 10:33 AM Consult Order [id number] Cons Maintainer Central [facility] Surgical Procedures: All associated to the encounter No Data Provided for This Section Lab Results: +/- 30 days of the encounter This section includes the Chemistry and Hematology Lab R esults on record with [place] for the patient. Radiology Reports and Pathology Report s are provided separately, in subsequent sections. Lab Results This section contains the Chemistry/Hematology Results usha t were resulted 30 days before or 30 days after the date of the Encounter. Date/Time Source Result Type Result - Unit Interpretation Reference Range Comment Mar 21, 2019 08:55 AM [facility] HEMOGLOBIN A1C Specimen Type: BLOOD No [...] patient. The data comes from a ll [place] treatment facilities. It does not list Allergies/ADRs that were removed or entered in error. Some allergies/ADRs may be reported in t he Immunization section. Allergen Event Date Event Type Reaction(s) Severity Source BRILINTA September 08, 2014 Propensity to adverse reactions to drug (diso rder) [facility] 15 PLAVIX September 08, 2014 Propensity to adverse reactions to drug (diso rder) [facility] 15 Medications: VA dispensed (-15 months) and Non-VA Documented (Obtained Outside A) Section Date Range: 1) prescriptions processed by a VA pharmacy in the last 15 m [facility], and 2) all medications recorded in the [place] medical record as "non-VA medic ations". Pharmacy terms refer to VA pharmacy's work on prescriptions. VA patient s are advised to take their medications as instructed by their health care team. The data comes from all [place] treatment facilities. Glossary of Pharmacy Terms:Active = A prescription that can be filled at the local [place] pharmacy.Active: On Hold = An active prescription that will not be filled until pharmacy resolves the issue.Active: Susp = An active prescription that is not scheduled to be filled yet.Clinic Order = A medication received during a visit to a [place] clinic or emergency department (currently not available).Discontinued [...] TEST BLOOD GLUCOSE 50 Dec 19, 2019 [id number] September 04, 2019 PAMELA RAMSEY ACCU-CHEK CHARLES PLUS (GLUCOSE) TEST STRIP Discontinued USE 1 STRIP FOR TESTING TWO TIMES PER WEEK - DIRECTED TO TEST BLOOD GLUCOSE 50 Jul 25, 2019 [id number] Nov 12, 2018 PAMELA RAMSEY ALBUTEROL SO4 90MCG/ACTUAT (CFC-F) INHL,ORAL,6.7GM Active INHALE 2 PUFFS BY ORAL INHALATION EVERY 4 HOURS NEEDED FOR BREATHING. SHAKE WELL. RINSE MOUTHPIECE FREQUENTLY TO PREVENT CLOGGING. USE NEEDED FOR SHORTNESS OF AIR/WHEEZING FOR BREATHING. SHAKE WELL. RINSE MOUTHPIECE FREQUENTLY TO PREVENT CLOGGING. USE NEEDED FOR SHORTNESS OF AIR/WHEEZING 1 Dec 19, 2019 [id number] September 04, 2019 PAMELA RAMSEY CB ALCOHOL PREP PAD Active USE 1 PAD ON SKIN BIW TO CLEAN AND DISINFECT THE SKIN 200 Sep 29, 2020 [id number] Sep 30, 2019 [facility] ALCOHOL PREP PAD Discontinued USE 1 PAD ON SKIN BI W TO CLEAN AND DISINFECT THE SKIN 200 Dec 19, 2019 [id number] Jun 06, 2019 PAMELA RAMSEY CBGUILLERMO ALCOHOL PREP PAD Discontinued USE 1 PAD ON SKIN BI W TO CLEAN AND DISINFECT THE SKIN 200 Jul 25, 2019 [id number] Nov 12, 2018 PAMELA RAMSEY CBGUILLERMO ASPIRIN 25MG/DIPYRIDAMOLE 200MG CAP,SA Active T CHAPIN 1 CAPSULE BY MOUTH TWO TIMES A DAY - SWALLOW WHOLE. DO NOT CRUSH OR CHEW. FOR RECURRENT TIA/STROKE 180 Dec 19, 2019 [id number] Dec 20, 2018 PAMELA RAMSEY [facility] ASPIRIN 25MG/DIPYRIDAMOLE 200MG CAP,SA Discontinued T CHAPIN 1 CAPSULE BY MOUTH TWO TIMES A DAY - SWALLOW WHOLE. DO NOT CRUSH OR CHEW. FOR RECURRENT TIA/STROKE 180 Feb 06, 2019 [id number] Sep 28, [address] [facility] ASPIRIN 81MG TAB,EC Non- [place] TAKE ONE TABLET BY MOUTH ONCE A DAY Non-VA Documented by: PADMA LONG nted at: [facility] ATORVASTATIN CA 80MG TAB Active TAKE ONE TABLET BY MOUTH AT BEDTIME FOR CHOLESTEROL - REPORT ANY UNEXPLAINED MUSCLE PAIN/WEAKNESS TO YOUR PROVIDER 90 Dec 19, 2019 [id number] September 04, 2019 PAMELA RAMSEY ATORVASTATIN CA 80MG TAB Discontinued TAKE ONE TABLET BY MOUTH AT BEDTIME FOR CHOLESTEROL - REPORT ANY UNEXPLAINED MUSCLE PAIN/WEAKNESS TO YOUR PROVIDER 90 Dec 20, 2018 [id number] Nov 12, 2018 PAMELA RAMSEY BUDESONIDE 160MCG/FORMOTEROL FUM 4.5MCG/SPRAY INHL,ORAL,10.2 GM Active INHALE 2 PUFFS BY MOUTH TWO TIMES A DAY FOR BREATHING. SHAKE WELL. RINSE MOUTH AND SPIT AFTER EACH USE. 3 Apr 24, 2020 [id number] August 22, 2019 LISSA OATES [facility] CALCIUM/VITAMIN D TAB No n-VA TAKE BY MOUTH ONCE A DAY Non-V A Documented by: PADMA LONG nted at: [facility] CARBOXYMETHYLCELLULOSE NA 0.5% SOLN,OPH Active INSTILL ONE DROP IN BOTH EYES FOUR TIMES A DAY FOR DRY EYES 15 Feb 01, 2020 [id number] September 03 0 [facility] DICLOFENAC NA 1% GEL,TOP Discontinued APPLY 2 GRAMS A FFECTED AREA TWO TIMES A DAY NEEDED FOR PAIN AND INFLAMMATION. DO NOT EXCEED 16GM DAILY TO ANY AFFECTED JOINT OF LOWER EXTREMITIES. DO NOT EXCEED 8GM DAILY TO ANY AFFECTED JOINT OF UPPER EXTREMITES. DO NOT EXCEED TOTAL DOSE OF 32GM DAILY FOR ALL JOINTS. 100 Oct 31, 2018 [id number] Oct 06, 2018 ANAYELI KIRKPATRICK [facility] DICLOFENAC NA 1% GEL,TOP APPLY 2 GRAMS A FFECTED AREA TWO TIMES A DAY NEEDED FOR PAIN AND INFLAMMATION. DO NOT EXCEED 16GM DAILY TO ANY AFFECTED JOINT OF LOWER EXTREMITIES. DO NOT EXCEED 8GM DAILY TO ANY AFFECTED JOINT OF UPPER EXTREMITES. DO NOT EXCEED TOTAL DOSE OF 32GM DAILY FOR ALL JOINTS. 100 Jan 17, 2019 [id number] Dec 20, 2018 PAMELA RAMSEY FLUTICASONE PROPIONATE 50MCG/SPRAY SOLN,NASAL,16GM Active INSTILL 1 SPRAY IN EACH NOSTRIL ONCE A DAY SHAKE GENTLY BEFORE USE! - MUST BE USED DIRECTED FOR 3 WEEKS TO PROVIDE BENEFIT. * NO EARLY REFILLS * 1UNIT = 30DAYS AT 4 PF/DAY OR 60DAYS AT 2PF/DAY 2 Dec 19, 2019 [id number] August 26, 2019 PAMELA RAMSEY KETOTIFEN 0.025% SOLN,OPH Active INSTILL 1 DROP IN BOTH EYES TWO TIMES A DAY FOR RELIEF OF ALLERGY SYMPTOMS IN EYE(S) 10 Feb 01, 2020 [id number] September 04, 2019 [facility] LANCET,SOFTCLIX Active USE LANCET BIW FOR TESTING BL OOD GLUCOSE DIRECTED 100 Sep 29, 2020 [id number] Sep 30, 2019 [facility] LANCET,SOFTCLIX Discontinued USE LANCET BIW FO R TESTING BLOOD GLUCOSE DIRECTED 100 Dec 19, 2019 [id number] Jun 06, 2019 [facility] RAMSE[facility] LANCET,SOFTCLIX Discontinued USE LANCET BIW FO R TESTING BLOOD GLUCOSE DIRECTED Jul 25, 2019 [id number] Nov 12, 2018 PAMELA RAMSEY LISINOPRIL 40MG TAB Non- [place] TAKE ONE-HALF TABLET BY MOUTH EVERY MORNING Non-VA Documented by: PAMELA RAMSEY nted at: [facility] LORATADINE/PSEUDOEPHEDRINE TAB,SA Non-VA TAKE BY MOUTH No n-VA Documented by: JUAN LANG nted at: ARTUR BLAS [facility] MAGNESIUM OXIDE 250MG TAB Non-VA TAKE 125 [...] ACID (REPLACES ACIPHEX) 180 Dec 19, 2019 [id number] August 26, 2019 PAMELA RAMSEY POTASSIUM GLUCONATE TAB Non-VA TAKE 595MG BY MOUTH ONCE A DAY N on-VA Documented by: PADMA LONG Docume nted at: [facility] N[facility] PRASUGREL HCL 10MG TAB N on-VA TAKE ONE TABLET BY MOUTH ONCE A DAY Non-VA Documented by: KATHERINE MATT Docume nted at: [facility] PREGABALIN 150MG CAP,ORAL Non-VA TAKE 1 [...] by: ANAYELI KIRKPATRICK [facility]ume nted at[facility] TER[facility]CL 1% CREAM,TOP Active APPLY LIGHT LY TO AFFECTED AREA TWO TIMES A DAY FOR INFECTION 90 Sep 23, 2020 [id number] Sep 24, 2019 ADRIEL HERNANDEZ UREA 20% CREAM,TOP Active APPLY LIGHTLY (20%) TO AFFECTED AREA TWO TIMES A DAY NEEDED TO PROMOTE HEALING,RUB IN UNTIL COMPLETELY ABSORBED*FOR TOPICAL USE ONLY* APPLY TO BOTH FEET DIRECTED. 90 Sep 25, 2020 [id number] Sep 26, 2019 ADRIEL HERNANDEZ Problems (Conditions): All historical and current Section Date Range: From patient's date of to the date document was create d. This section includes a list of Problems (Conditions) know n to [place] for the patient. It includes both active and inacti ve problems (conditions). The data comes from all [place] treatment facilities. Problem Status Problem Code Date of Onset Date of Resolution Comm ent(s) Provider Source Alcohol intake above recommended sensible limits Active 522242014 PADMA LONG [facility] Allergic conjunctivitis Active 680687150 [facility] Bilateral senile combined form cataracts of eyes Active 55294296926 9108 [facility] Bilateral tinnitus Active 7538155904246 CHAST[facility] JEAN [facility] Coronary arteriosclerosis Active 56896610 September 08, 2014 Entered By: PADMA LONG Comment: hx of ptca to RCA several yrs. agoSeptember 08, 2014 Entered By: PADMA LONG Comment: heart cath 09/01/14, neg. / previous stent to RCA,, via abida meneses ks HATCHER, JENNEY R [facility] Diabetes mellitus Active 84831624 PAMELA RAMSEY [facility] Disorder of pancreas Active 4093583 September 08, 2014 Entered By: PADMA LONG Comment: 2.5cm low density lseion in bodyMay 2014 Entered By: PADMA LONG Comment: question of communication with pancreatic ductMay 2014 Entered By: PADMA LONG Comment: favored to be cystic pancreatic cancerMa2014 Entered By: PADMA LONG Comment: per abdominal CT 09/01/14, via abida menesesia PADMA LONG [facility] Dry eyes Active 192313630 [facility] Gastro-esophageal reflux disease without esophagitis ( SNOMED CT 251866675) Active 776594704 ALF GUEVARA [facility] Hyperlipidemia (SNOMED CT 62131068) Active 97339940 PAMELA RAMSEY [facility] Lung mass Active 803457489 September 08, 2014 E ntered By: PADMA LONG Comment: 4.5 cm mass, post. segment right upper lobe.September 08, 2014 Entered By: PADMA LONG Comment: mild adenopathy in mediastinum and bilat. [email or web address] Entered By: PADMA LONG Comment: most likely related to lung cancerSeptember 08, 2014 Entered By: PADMA LONG Comment: per ct angio of chest with contrast 09/01/14,via abida meneses,iaSep 23, 2014 Entered By: PADMA LONG Comment: per path report- mod. differentiated bronchogenic adenoca. 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 Active 51034100 KATHERINE MATT [facility] Obesity Active 606661826 [facility] Obstructive sleep apnea syndrome (SNOMED CT 87210906) Active 523392 015 [facility] Pancreatic cyst Active 36882152 PAOLAJAYLENE Cortes [facility] Papilloma of right eyelid Active 046334426269616 [facility] Polyp of colon Active 14824263 Jan 23 Entered By: PADMA LONG Comment: c-scope 01/17/16, multiple benign colonic polypsJun 28, 2017 Entered By: PADMA LONG Comment: c-scope,06/25/17,[facility], three benign polyps- sigmoid colon, transverse colon,cecum. see path report cprs SHARRON TORRES [facility] Pulmonary emphysema Active 57045953 0 BRIANA GAVIN [facility] Sensorineural hearing loss, bilateral Active 012163541 CHAST[facility] JE[facility] Snoring Active 73841625 [facility] Type 2 diabetes mellitus without complication Active 682337911 [facility] Environmental Allergies (ICD-9-CM 477.9) Inactive 477.9 Dec 18, 2017 PADMA LONG [facility] External hemorrhoids without mention of complication (ICD-9- CM 455.3) Inactive 455.3 Dec 18, 2017 PADMA LONG [facility] Impotence of organic origin (ICD-9-CM 607.84) Inactive 607.84 Dec 18, 2017 PADMA LONG [facility] Screening for Lipoid disorders (ICD-9-CM V77.91) Inactive V77.91 Jan 18, 2007 PADMA LONG [facility] Stye * (ICD-9-CM 373.11) Inactive 373.11 Dec 18, 201 8 Jan 18, 2007 Entered By: PADMA LONG Comment: bilat lower lids, chronic/recurrent PADMA LONG ROOPA [facility] Tobacco Use Disorder, Continuous Inactive 305.1 Dec 18, 2017 Jan 18, 2007 Entered By: PADMA LONG Comment: one ppd PADMA LONG [facility] Radiology Reports: +/- 30 days of the [...] the Encounter. The data comes from all [place] treatment facilities. Date/Time Pathology Report Provider Source [...] 11:11) Microscopic examination is performed. DIAGNOSIS: Specimen: [id number] Spec Type: SURGICAL Abdulkadir: 04/03/19 Rec: 04/03/19-1241 PATHOLOGIC DIAGNOSIS Skin lesion, right upper cheek, biopsy: 1. Seborrheic keratosis, not involving resection margins. 2. Solar elastosis. Skin lesion, right lower mid margin, biopsy: 1. Seborrheic keratosis, with tumor at tissue edge/margin, but with benign features. LL COPIES TO: KATHERINE MATT [facility] PATHOLOGIST CODES: 58956/2 at 1235 The gross and microscopic examinations and interpretation were performed at [facility] Department of Pathology, [address] [place] [address]. Slides and paraffin blocks are on file at [facility]. =--=--=--=--=--=--=--=--=--=--=--=--=--=--=--=--=--=--=--=--=--=--=--=--=--=-- Performing Laboratory: Surgical Pathology Report Performed By: [facility] [CLIA# [id number]] [address] [place] [id number] [facility] 15 Encounter Notes: All associated encounter notes This section contains the clinical notes associated to the Encounter. Date/Time Encounter Note(s) Provider Source Apr 14, 2019 09:57 AM OPHTHALMOLOGY NOTE: LOCAL TITLE: [facility]-EYE OPHTHALMOLOGY/FOLLOW-UP STANDARD TITLE: OPHTHALMOLOGY NOTE DATE OF NOTE: APR 14, 2019@09:57:13 ENTRY DATE: APR 14, 2019@09:57:14 AUTHOR: KATHERINE MATT EXP COSIGNER: URGENCY: STATUS: COMPLETED F/U BIOPSY Chief complaint: Pt denies any double vision, flashes of lights, curtains, pain, burning VISUAL ACUITY: Distance with correction: Right eye 20/20-2 PH: 20/ Left eye 20/20 PH: 20/ Both eyes 20/20-1 CHAIR SKILLS: Pupils were 6mm to 5mm with no apd. EOM's were both eyes full Confrontation vasquez were right eye full, left eye full SLIT LAMP: [place] IOP's were: 14mmHg Right Eye & 14mmHg Left Eye @ 0945. Patient denies history of glaucoma. PHYSICIAN NOTE: HERE FOR STITCH REMOVAL. PATH: BOTH LESIONS SHOW TANA KERATOSIS WITH LESION AT LID MARGIN SHOWING NEOPLASM AT INCISION MARGIN SLE: LIDS: SMALL ABOUNT OF RESIDUAL TUMOR RIGHT LOWER LID MARGIN SUTURES INTACT RIGHT UPPER CHEEK/RIGHT LOWER EYELID SUTURE REMOVAL TODAY. IMP: S/P INCISIONAL/EXCISIONAL BX RIGHT LOWER EYELID. DOING WELL. F/U PRN. /gisell/ KATHERINE MATT Staff Department Helper Signed: 04/14/2019 10:16 KATHERINE MATT [facility] Apr 14, 2019 09:42 AM NURSING OUTPATIENT NOTE: LOCAL TITLE: [facility]-SPECIALTY PRE-APPT STANDARD TITLE: NURSING OUTPATIENT NOTE DATE OF NOTE: APR 14, 2019@09:42 ENTRY DATE: APR 14, 2019@09:42:21 AUTHOR: BRO HODGSON EXP COSIGNER: URGENCY: STATUS: COMPLETED Specialty Pre-Appt Reason for appointment: Pt here for post op biopsy 64 y/o MALE ALLERGIES: PLAVIX, BRILINTA Allergies [...] depression reminder due) Is the patient diabetic? No - patient is not a diabetic Eye Clinic Eye Nurse Pretest: Ocular History: Injury: No Surgery: No Glaucoma: No Macular Degeneration: No Cataract: No Current eye meds: Yes Ketotifen bid, AT qid BARBER: 03/10/19 Chief complaint: Pt denies any double vision, flashes of lights, curtains, pain, burning VISUAL ACUITY: Distance with correction: Right eye 20/20-2 PH: 20/ Left eye 20/20 PH: 20/ Both eyes 20/20-1 CHAIR SKILLS: Pupils were 6mm to 5mm with no apd. EOM's were both eyes full Confrontation vasquez were right eye full, left eye full SLIT LAMP: [place] IOP's were: 14mmHg Right Eye & 14mmHg Left Eye @ 0945. Patient denies history of glaucoma. /gisell/ BRO HODGSON Infinia Signed: 04/14/2019 09:51 BRO HODGSON [facility]
--- OUTSIDE RECORDS SUMMARY | 2019-11-11 02:19 | XMS REPORT | Encounter Summary ---
Author Author Department of [facility] Organization Department of [facility] Affai rs Address [address] [place] [address] Phone Unavailable Care Team Providers Care Civil Engineering Director Name Role Phone ADRIEL HERNANDEZ PCP Unavailable Insurance Providers: All historical and current No Data Provided for This Section Selected Encounter This section includes the information on record at [place] for the Encounter. Date/Time Encounter Type Encounter Description Reason Provider Source Apr 28, 2019 11:00 AM Outpatient Encounter TELEPHONE/ANCILLARY I CD-10-CM Z71.3 Dietary counseling and surveillance with Provider Comments: Dietary counseling and surveillance GARY HARRINGTON [facility] IHE Encounter Template Text not used by [place] Assessments - Encounter Diagnoses This section includes the primary and secondary diag noses documented for the Encounter. Date/Time Primary/Secondary Diagnosis Diagnosis Name Provider Source Apr 28, 2019 11:00 AM PRIMARY Dietary counseling and rain veillance TASHA LIU [facility] Apr 28, 2019 11:00 AM SECONDARY Body mass index (BMI) 31.0 -31.9, adult TASHA LIU [facility] Apr 28, 2019 11:00 AM SECONDARY Obesity, unspecified Sophia LIU [facility] Apr 28, 2019 11:00 AM SECONDARY Type 2 diabetes mellitus w ithout complications NOETASHA Katz ARTUR BLAS [facility] Plan of Treatment: Future Appointments (+ 6 months) and Future Tests (+/- 45 day s) The Plan of Treatment section includes future care activities for the patient fr om all [facility] facilities. This section includes future appointments and fu ture orders which are active, pending or scheduled. Future Appointments This section includes appointments that were scheduled t o occur 6 months from the date of the Encounter, up to a maximum of 20 appointme nts. The data comes from all [facility]. Appointment Date/Time Appointment Type Appointment Facili ty Name Jun 25, 2019 11:30 AM AMBULATORY - NONE [facility] Jun 25, 2019 01:15 PM AMBULATORY - MEDICINE ARTUR BLAS [facility] Jul 23, 2019 11:00 AM [facility] Jul 25, 2019 08:00 AM [facility] - NONE [facility] Aug 07, 2019 10:30 AM AMBULATORY - MEDICINE ARTUR BLAS [facility] Sep 23, 2019 11:15 AM AMBULATORY - NONE [facility] Sep 23, 2019 11:30 AM AMBULATORY - MEDICINE [facility] Oct 07, 2019 09:15 AM AMBULATORY - NONE [facility] 15 Active, Pending, and Scheduled Orders This [...] the Encounter. The data comes from all [facility]. Test Date/Time Test Type Test Details Facility Name Apr 01, 2019 10:33 AM Consult Order [facility] [id number] Cons Salvage [place] [place] [facility] Surgical Procedures: All associated to [...] QUIT 15 YRS OR MORE PORSHA BLAS [facility] Tobacco Use History This section includes a history of the smoking, or tobacco -related health factors, that were collected on or before the date of the Encoun ter. The data comes from the [place] facility where the Encounter took place. Date/Time Smoking Status/Tobacco Use Comment [facility] Jun 26, 2018 02:13 PM VA-TOBACCO QUIT 15 YRS OR MORE PORSHA BLAS [facility] Jun 27, 2017 01:39 PM NON-TOBACCO USER [facility] Jun 27, 2017 01:16 PM NON-TOBACCO USER [facility] Jan 06, 2015 02:07 PM NON-TOBACCO USER [facility] Nov 23, 2014 10:38 AM NON-TOBACCO USER [facility] Oct 26, 2014 10:36 AM NON-TOBACCO USER [facility] Oct 14, 2014 11:09 AM NON-TOBACCO USER [facility] Advance Directives: All historical and current No Data Provided for This Section Allergies and Adverse Reactions (ADRs): All historical and current Section Date Range: From patient's date of to the date document was create d. This section includes Allergies and Adverse Reactions (ADR s) on record with [facility] for the patient. The data comes from a [facility] treatment facilities. It does not list Allergies/ADRs that were removed or entered in error. Some allergies/ADRs may be reported in t he Immunization section. Allergen Event Date Event Type Reaction(s) Severity Source [place] September 08, 2014 Propensity to adverse reactions to drug (diso rder) [facility] PLA[place] September 08, 2014 Propensity to adverse reactions to drug (diso rder) [facility] Medications: VA dispensed (-15 months) [...] that can be filled at the local [facility] pharmacy.Active: On Hold = An active prescription [...] other providers that was filled outside the [place]. Or, it may be an over the [...] TEST BLOOD GLUCOSE 50 Dec 19, 2019 [id number] September 04, 2019 PAMELA RAMSEY ACCU-CHEK CHARLES PLUS (GLUCOSE) TEST STRIP Discontinued USE 1 STRIP FOR TESTING TWO TIMES PER WEEK - DIRECTED TO TEST BLOOD GLUCOSE 50 Jul 25, 2019 [id number] Nov 12, 2018 PAMELA RAMSEY ALBUTEROL SO4 90MCG/ACTUAT (CFC-F) INHL,ORAL,6.7GM Active INHALE 2 PUFFS BY ORAL INHALATION EVERY 4 HOURS NEEDED FOR BREATHING. SHAKE WELL. RINSE MOUTHPIECE FREQUENTLY TO PREVENT CLOGGING. USE NEEDED FOR SHORTNESS OF AIR/WHEEZING FOR BREATHING. SHAKE WELL. RINSE MOUTHPIECE FREQUENTLY TO PREVENT CLOGGING. USE NEEDED FOR SHORTNESS OF AIR/WHEEZING 1 Dec 19, 2019 [id number] September 04, 2019 BRAULIO,PAMELA [facility] ALCOHOL PREP PAD Active USE 1 PAD ON SKIN BIW TO CLEAN AND DISINFECT THE SKIN 200 Sep 29, 2020 [id number] Sep 30, 2019 MAURICIO RANKIN [facility] ALCOHOL PREP PAD Discontinued USE 1 PAD ON SKIN BI W TO CLEAN AND DISINFECT THE SKIN 200 Dec 19, 2019 [id number] Jun 06, 2019 PAMELA RAMSEY [facility] ALCOHOL PREP PAD Discontinued USE 1 PAD ON SKIN BI W TO CLEAN AND DISINFECT THE SKIN 200 Jul 25, 2019 [id number] Nov 12, 2018 PAMELA RAMSEY [facility] ASPIRIN 25MG/DIPYRIDAMOLE 200MG CAP,SA Active T CHAPIN 1 CAPSULE BY MOUTH TWO TIMES A DAY - SWALLOW WHOLE. DO NOT CRUSH OR CHEW. FOR RECURRENT TIA/STROKE 180 Dec 19, 2019 [id number] Dec 20, 2018 PAMELA RAMSEY [facility] ASPIRIN 25MG/DIPYRIDAMOLE 200MG CAP,SA Discontinued T CHAPIN 1 CAPSULE BY MOUTH TWO TIMES A DAY - SWALLOW WHOLE. DO NOT CRUSH OR CHEW. FOR RECURRENT TIA/STROKE 180 Feb 06, 2019 [id number] Sep 28, 2018 ZACHARY GRECO [facility] ASPIRIN 81MG TAB,EC Non- [facility] TAKE ONE TABLET BY MOUTH ONCE A DAY Non-VA Documented by: PADMA LONG nted at: [facility] ATORVASTATIN CA 80MG TAB Active TAKE ONE TABLET BY MOUTH AT BEDTIME FOR CHOLESTEROL - REPORT ANY UNEXPLAINED MUSCLE PAIN/WEAKNESS TO YOUR PROVIDER 90 Dec 19, 2019 [id number] September 04, 2019 PAMELA RAMSEY [facility] ATORVASTATIN CA 80MG TAB Discontinued TAKE ONE TABLET BY MOUTH AT BEDTIME FOR CHOLESTEROL - REPORT ANY UNEXPLAINED MUSCLE PAIN/WEAKNESS TO YOUR PROVIDER 90 Dec 20, 2018 [id number] Nov 12, 2018 PAMELA RAMSEY [facility] BUDESONIDE 160MCG/FORMOTEROL FUM 4.5MCG/SPRAY INHL,ORAL,10.2 GM Active INHALE 2 PUFFS BY MOUTH TWO TIMES A DAY FOR BREATHING. SHAKE WELL. RINSE MOUTH AND SPIT AFTER EACH USE. 3 Apr 24, 2020 [id number] August 22, 2019 LISSA OATES [facility] CALCIUM/VITAMIN D TAB No n-VA TAKE BY MOUTH ONCE A DAY Non-V A Documented by: PADMA LONG nted at: [facility] CARBOXYMETHYLCELLULOSE NA 0.5% SOLN,OPH Active INSTILL ONE DROP IN BOTH EYES FOUR TIMES A DAY FOR DRY EYES Feb 01, 2020 [id number] September 03 0 [facility] DICLOFENAC NA 1% GEL,TOP Discontinued APPLY 2 GRAMS A FFECTED AREA TWO TIMES A DAY NEEDED FOR PAIN AND INFLAMMATION. DO NOT EXCEED 16GM DAILY TO ANY AFFECTED JOINT OF LOWER EXTREMITIES. DO NOT EXCEED 8GM DAILY TO ANY AFFECTED JOINT OF UPPER EXTREMITES. DO NOT EXCEED TOTAL DOSE OF 32GM DAILY FOR ALL JOINTS. 100 Oct 31, 2018 [id number] Oct 06, 2018 ANAYELI KIRKPATRICK [facility] DICLOFENAC NA 1% GEL,TOP APPLY 2 GRAMS A FFECTED AREA TWO TIMES A DAY NEEDED FOR PAIN AND INFLAMMATION. DO NOT EXCEED 16GM DAILY TO ANY AFFECTED JOINT OF LOWER EXTREMITIES. DO NOT EXCEED 8GM DAILY TO ANY AFFECTED JOINT OF UPPER EXTREMITES. DO NOT EXCEED TOTAL DOSE OF 32GM DAILY FOR ALL JOINTS. 100 Jan 17, 2019 [id number] Dec 20, 2018 PAMELA RAMSEY FLUTICASONE PROPIONATE 50MCG/SPRAY SOLN,NASAL,16GM Active INSTILL 1 SPRAY IN EACH NOSTRIL ONCE A DAY SHAKE GENTLY BEFORE USE! - MUST BE USED DIRECTED FOR 3 WEEKS TO PROVIDE BENEFIT. * NO EARLY REFILLS * 1UNIT = 30DAYS AT 4 PF/DAY OR 60DAYS AT 2PF/DAY 2 Dec 19, 2019 [id number] August 26, 2019 PAMELA RAMSEY KETOTIFEN 0.025% SOLN,OPH Active INSTILL 1 DROP IN BOTH EYES TWO TIMES A DAY FOR RELIEF OF ALLERGY SYMPTOMS IN EYE(S) Feb 01, 2020 [id number] September 04, 2019 [facility] LANCET,SOFTCLIX Active USE LANCET BIW FOR TESTING BL OOD GLUCOSE DIRECTED Sep 29, 2020 [id number] Sep 30, 2019 MAURICIO RANKIN LANCET,SOFTCLIX Discontinued USE LANCET BIW FO R TESTING BLOOD GLUCOSE DIRECTED Dec 19, 2019 [id number] Jun 06, 2019 [facility]ELA RAMSEY [facility] LANCET,SOFTCLIX Discontinued USE LANCET BIW FO R TESTING BLOOD GLUCOSE DIRECTED 100 Jul 25, 2019 [id number] Nov 12, 2018 PAMELA RAMSEY LISINOPRIL 40MG TAB Non- [facility] TAKE ONE-HALF TABLET BY MOUTH EVERY MORNING Non-VA Documented by: PAMELA RAMSEY nted at: [facility] LORATADINE/PSEUDOEPHEDRINE TAB,SA Non-VA TAKE BY MOUTH No n-VA Documented by: JUAN LANG Docume nted at: [facility] MAGNESIUM OXIDE 250MG TAB Non-VA [...] ACID (REPLACES ACIPHEX) 180 Dec 19, 2019 [id number] August 26, 2019 PAMELA RMASEY POTASSIUM GLUCONATE TAB Non-VA TAKE 595MG BY MOUTH ONCE A DAY N on-VA Documented by: PADMA LONG nted at: [facility] PRASUGREL HCL 10MG TAB N on-VA TAKE ONE TABLET BY MOUTH ONCE A DAY Non-VA Documented by: KATHERINE MATTume nted at: [facility] PREGABALIN 150MG CAP,ORAL Non-VA TAKE 1 CAPSULE BY MOUTH TWO TIMES A DAY Non-VA Docume nted by: PAMELA RAMSEY nted at: [facility] PREGABALIN 150MG CAP,ORAL Non-VA TAKE 1 CAPSULE BY MOUTH TWO TIMES A DAY Non-VA Docume nted by: PAMELA RAMSEY nted at: [facility] SEMAGLUTIDE INJ,SOLN Non -VA INJECT SUBCUTANEOUSLY EVERY WEEK Non-VA Documented by: ANAYELI KIRKPATRICK Docume nted at: [facility] TERBINAFINE HCL 1% CREAM,TOP Active APPLY LIGHT LY TO AFFECTED AREA TWO TIMES A DAY FOR INFECTION 90 Sep 23, 2020 [id number] Sep 24, 2019 ADRIEL HERNANDEZ [facility] UREA 20% CREAM,TOP Active APPLY LIGHTLY (20%) TO AFFECTED AREA TWO TIMES A DAY NEEDED TO PROMOTE HEALING,RUB IN UNTIL COMPLETELY ABSORBED*FOR TOPICAL USE ONLY* APPLY TO BOTH FEET DIRECTED. 90 Sep 25, 2020 [id number] Sep 26, 2019 ADRIEL HERNANDEZ CB Problems (Conditions): All historical and current Section [...] Alcohol intake above recommended sensible limits Active 928475930 PADMA LONG [facility] Allergic conjunctivitis Active 152437017 ASHLANDNEDA [facility] Bilateral senile combined form cataracts of eyes Active 41224952166 9108 ASHLANDNEDA J [facility] Bilateral tinnitus Active [id number] CHASTITY JEAN [facility] Coronary arteriosclerosis Active 92442171 September 08, 2014 Entered By: PADMA LONG Comment: hx of ptca to RCA several yrs. agoSeptember 08, 2014 Entered By: PADMA LONG Comment: heart cath 09/01/14, neg. / previous stent to RCA,, via abida meneses ks HATCHER, JENNEY R ROBERT [facility] Diabetes mellitus Active 86411553 PAMELA RAMSEY [facility] Disorder of pancreas Active 6140817 September 08, 2014 Entered By: PADMA LONG Comment: 2.5cm low density lseion in bodyMay 2014 Entered By: PADMA LONG Comment: question of communication with pancreatic ductMay 2014 Entered By: PADMA LONG Comment: favored to be cystic pancreatic cancerSeptember 08, 2014 Entered By: PADMA LONG Comment: per abdominal CT 09/01/14, via abida meneses ks FRAZIER, JAY J [facility] Dry eyes Active 175274282 NEDA SHAW [facility] Gastro-esophageal reflux disease without esophagitis ( SNOMED CT 052074782) Active 507339919 ALF GUEVARA [facility] Hyperlipidemia (SNOMED CT 51964192) Active 26822999 PAMELA RAMSEY [facility] Lung mass Active 516069577 September 08, 2014 E ntered By: PADMA LONG Comment: 4.5 cm mass, post. segment right upper lobe.September 08, 2014 Entered By: PADMA LONG Comment: mild adenopathy in mediastinum and bilat. hilaMa2014 Entered By: PADMA LONG Comment: most likely related to lung cancerMa2014 Entered By: PADMA LONG Comment: per ct angio of chest with contrast 09/01/14,[facility] Entered By: PADMA LONG Comment: per path report- mod. differentiated bronchogenic adenoca. 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 Active 32044834 KATHERINE MATT [facility] Obesity Active 411871523 [place] [facility] Obstructive sleep apnea syndrome (SNOMED CT 18453308) Active 546215 015 [place] [facility] Pancreatic cyst Active 25679863 [facility] Papilloma of right eyelid Active 989333960699958 COLINNEDA [facility] Polyp of colon Active 53757539 Jan 23 16 Entered By: PADMA LONG Comment: c-scope 01/17/16, multiple benign colonic polypsJun 28, 2017 Entered By: PADMA LONG Comment: c-scope,06/25/17,[facility], three benign polyps- sigmoid colon, transverse colon,cecum. see path report cprs SHARRON TORRES [facility] Pulmonary emphysema Active 68593896 0 BRIANA Ireland [facility] Sensorineural hearing loss, bilateral Active 163754258 SLECHASTITY MORA [facility] Snoring Active 70996243 [place] ARTUR Juan M [facility] Type 2 diabetes mellitus without complication Active 162031923 N[place]A SHAW ARTUR [place] [facility] Environmental Allergies (ICD-9-CM 477.9) Inactive 477.9 Dec 18, 2017 [facility] External hemorrhoids without mention of complication (ICD-9- CM 455.3) Inactive 455.3 Dec 18, 2017 [facility] Impotence of organic origin (ICD-9-CM 607.84) Inactive 607.84 Dec 18, 2017 PADMA LONG [facility] Screening for Lipoid disorders (ICD-9-CM V77.91) Inactive V77.91 Jan 18, 2007 [facility] Stye * (ICD-9-CM 373.11) Inactive 373.11 Dec 18, 8 Jan 18, 2007 Entered By: PADMA LONG Comment: bilat lower lids, chronic/recurrent PADMA LONG [facility] Tobacco Use Disorder, Continuous Inactive 305.1 Dec 18, 2017 Jan 18, 2007 Entered By: PADMA LONG Comment: one ppd PADMA LONG [facility] Radiology Reports: +/- 30 days of the [...] the Encounter. The data comes from all [place] treatment facilities. Date/Time Pathology Report Provider Source [...] 11:11) Microscopic examination is performed. DIAGNOSIS: Specimen: [id number] Spec Type: SURGICAL Abdulkadir: 04/03/19 Rec: 04/03/19-1241 PATHOLOGIC DIAGNOSIS Skin lesion, right upper cheek, biopsy: 1. Seborrheic keratosis, not involving resection margins. 2. Solar elastosis. Skin lesion, right lower mid margin, biopsy: 1. Seborrheic keratosis, with tumor at tissue edge/margin, but with benign features. LL COPIES TO: KATHERINE MATT [facility] PATHOLOGIST CODES: 17946/2 at 1235 The gross and microscopic examinations and interpretation were performed at [facility] Department of Pathology, [address] [place] [id number]. Slides and paraffin blocks are on file at [facility]. =--=--=--=--=--=--=--=--=--=--=--=--=--=--=--=--=--=--=--=--=--=--=--=--=--=-- Performing Laboratory: Surgical Pathology Report Performed By: [facility] [CLIA# [id number]] [address] [place] [id number] [facility] 15 Encounter Notes: All associated encounter notes This section contains the clinical notes associated to the Encounter. Date/Time Encounter Note(s) Provider Source Apr 28, 2019 11:19 AM MOVE TELEPHONE ENCOUNTER NOT E: LOCAL TITLE: WI-WEIGHT MANAGEMENT/MOVE! TELEPHONE STANDARD TITLE: MOVE TELEPHONE ENCOUNTER NOTE DATE OF NOTE: APR 28, 2019@11:19 ENTRY DATE: APR 28, 2019@11:19:17 AUTHOR: AGRY HARRINGTON EXP COSIGNER: URGENCY: STATUS: COMPLETED WI-PHONE DIET CLINIC Date and Time of Call: 04/28/19 Length of Call: [address] minutes[address] RDN called and spoke with . Reason for Call/Diagnosis: DM2; Class I obesity Measurement DT WEIGHT LB(KG)[BMI] 12/18/2018 08:34 225.7(102.38)[32*] 10/01/2018 12:24 218.8(99.25)[31*] 09/30/2018 13:07 216.1(98.02)[30*] 08/20/2018 14:01 215.2(97.61)[30*] 08/15/2018 10:55 224.6(101.88)[31*] 07/25/2018 11:33 227.5(103.19)[32*] 07/24/2018 13:13 226.3(102.65)[32*] 07/08/2018 11:17 222.4(100.88)[31*] 06/26/2018 13:01 230.6(104.60)[32*] 05/21/2018 10:16 231.9(105.19)[32*] HEIGHT IN(CM) 12/18/2018 08:34 71(180.34) A1c 6.9 % H (03/21/2019 08:55) Collection DT Spec CHOL TGL HDL LDL-ILENE 12/18/2018 08:45 PLASM 172 190 H 40 94 07/09/2018 12:04 PLASM 165 172 H 38 L 92.6 12/18/2017 10:00 PLASM 212 H 243 H 41 122.4 H 12/18/2016 08:30 PLASM 137 122 35 L 77.6 12/13/2015 09:30 PLASM 186 134 47 112.2 H 09/08/2014 09:00 PLASM 161 197 H 44 77.6 Subjective Data: states: he's had a rough month-had 4 more stents placed & COPD flaired up again; will be moving back to [place] the end of this month-has worked in [employer] [place] for past 6-7 years; is in cardiac rehab for 30 sessions-has had 5 so far; gained 5# over the holidays; bs's have been good in [id number]-started on Ozembic and Metformin was decreased in half; he and will join [employer] when she gets there. Plan: Provided contact information for [place] to call with questions or to schedule a future appointment with the dietitian. /gisell/ GARY ARANDAS,RD,LD,CDE CLINICAL DIETITIAN Signed: 04/28/2019 11:23 GARY HARRINGTON [facility]
--- OUTSIDE RECORDS SUMMARY | 2019-11-11 02:20 | XMS REPORT | Encounter Summary ---
Author Author Department of [facility] HERBERTH kline Organization Department of [facility] Affai Address [address] [place] [address] Phone Unavailable Care Team Providers Care Escort Blind Name Role Phone ADRIEL HERNANDEZ PCP Unavailable Insurance Providers: All historical and current No Data Provided for This Section Selected Encounter This section includes the information on record at [place] for the Encounter. Date/Time Encounter Type Encounter Description Reason Provider Source Apr 03, 2019 10:01 AM Outpatient Encounter EVENT (HISTORICAL) [facility] 15 IHE Encounter Template Text not used by [place] Assessments - Encounter Diagnoses No Data Provided for This Section Plan of Treatment: Future Appointments (+ 6 months) and Future Tests (+/- 45 day s) The Plan of Treatment section includes future care activities for the patient fr om all [place] treatment facilities. This section includes future appointments and fu ture orders which are active, pending or scheduled. Future Appointments This section includes appointments that were scheduled t o occur 6 months from the date of the Encounter, up to a maximum of 20 appointme nts. The data comes from all [place] treatment facilities. Appointment Date/Time Appointment Type Appointment Facili ty Name Apr 14, 2019 10:00 AM AMBULATORY - SURGERY [facility] Apr 28, 2019 11:00 AM AMBULATORY - NONE [facility] MAYFIELD C Jun 25, 2019 11:30 AM AMBULATORY - NONE ART[facility] CARRASQUILLO C Jun 25, 2019 01:15 PM [place]IC[place] [facility] [place] 23, 2019 11:00 AM AMBULATORY - NONE [facility] MAYFIELD C Jul 25, 2019 08:00 AM AMBULATORY - NONE [facility] C Aug 07, 2019 10:30 AM [place]IC[place] [facility] [place] [facility] [place] Sep 23, 2019 11:15 AM [facility] NONE [facility] Sep 23, 2019 11:30 AM AMBULATORY - MEDICINE [facility] Active, Pending, and Scheduled Orders This section [...] the Encounter. The data comes from all [place] treatment facilities. 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 Radiology Reports and Pathology Report s are provided separately, in subsequent sections. Lab Results This section contains the Chemistry/Hematology Results usha t were resulted 30 days before or 30 days after the date of the Encounter. Date/Time Source Result Type Result - Unit Interpretation Reference Range Comment Mar 21, 2019 08:55 AM [facility] HEMOGLOBIN A1C Specimen Type: BLOOD No [...] Adverse Reactions (ADR s) on record with [place] for the patient. The data comes from a ll [place] treatment facilities. It does not list Allergies/ADRs [...] (diso rder) [facility] 15 Medications: VA dispensed (-15 months) and Non-VA Documented (Obtained Outside V A) Section Date Range: 1) prescriptions processed by a [facility] pharmacy in the last [facility], and 2) all medications recorded in the [place] medical record as "non-VA medic ations". Pharmacy terms refer to [place] pharmacy's work on prescriptions. VA patient s are advised to take their medications as instructed by their health care team. The data comes from all [place] treatment facilities. Glossary of Pharmacy Terms:Active = A prescription that can be filled at the local [place] pharmacy.Active: On Hold = An active prescription that will not be filled until pharmacy resolves the issue.Active: Susp = An active prescription that is not scheduled to be filled yet.Clinic Order = A medication received during a visit to a [place] clinic or emergency department (currently not available).Discontinued [...] TEST BLOOD GLUCOSE 50 Dec 19, 2019 [id number] September 04, 2019 PAMELA RAMSEY GUILLERMO ACCU-CHEK CHARLES PLUS (GLUCOSE) TEST STRIP Discontinued USE 1 STRIP FOR TESTING TWO TIMES PER WEEK - DIRECTED TO TEST BLOOD GLUCOSE 50 Jul 25, 2019 [id number] Nov 12, 2018 PAMELA RAMSEY ALBUTEROL SO4 90MCG/ACTUAT (CFC-F) INHL,ORAL,6.7GM Active INHALE 2 PUFFS BY ORAL INHALATION EVERY 4 HOURS NEEDED FOR BREATHING. SHAKE WELL. RINSE MOUTHPIECE FREQUENTLY TO PREVENT CLOGGING. USE NEEDED FOR SHORTNESS OF AIR/WHEEZING FOR BREATHING. SHAKE WELL. RINSE MOUTHPIECE FREQUENTLY TO PREVENT CLOGGING. USE NEEDED FOR SHORTNESS OF AIR/WHEEZING 1 Dec 19, 2019 [id number] September 04, 2019 PAMELA RAMSEY GUILLERMO ALCOHOL PREP PAD Active USE 1 PAD ON SKIN BIW TO CLEAN AND DISINFECT THE SKIN 200 Sep 29, 2020 [id number] Sep 30, 2019 MAURICIO RANKIN [facility] ALCOHOL PREP PAD Discontinued USE 1 PAD ON SKIN BI W TO CLEAN AND DISINFECT THE SKIN 200 Dec 19, 2019 [id number] Jun 06, 2019 PAMELA RAMSEY CBGUILLERMO ALCOHOL PREP PAD Discontinued USE 1 PAD ON SKIN BI W TO CLEAN AND DISINFECT THE SKIN 200 Jul 25, 2019 [id number] Nov 12, 2018 PAMELA RAMSEY ASPIRIN 25MG/DIPYRIDAMOLE 200MG CAP,SA Active T CHAPIN 1 CAPSULE BY MOUTH TWO TIMES A DAY - SWALLOW WHOLE. DO NOT CRUSH OR CHEW. FOR RECURRENT TIA/STROKE 180 Dec 19, 2019 [id number] Dec 20, 2018 PAMELA RAMSEY ASPIRIN 25MG/DIPYRIDAMOLE 200MG CAP,SA Discontinued T CHAPIN 1 CAPSULE BY MOUTH TWO TIMES A DAY - SWALLOW WHOLE. DO NOT CRUSH OR CHEW. FOR RECURRENT TIA/STROKE 180 Feb 06, 2019 [id number] Sep 28, 2018 ZACHARY GRECO ASPIRIN 81MG TAB,EC Non- VA TAKE ONE TABLET BY MOUTH ONCE A DAY Non-VA Documented by: PADMA LONG nted at: [facility] ATORVASTATIN CA 80MG TAB Active TAKE ONE TABLET BY MOUTH AT BEDTIME FOR CHOLESTEROL - REPORT ANY UNEXPLAINED MUSCLE PAIN/WEAKNESS TO YOUR PROVIDER 90 Dec 19, 2019 [id number] September 04, 2019 PAMELA RAMSEY ATORVASTATIN CA 80MG TAB Discontinued TAKE ONE TABLET BY MOUTH AT BEDTIME FOR CHOLESTEROL - REPORT ANY UNEXPLAINED MUSCLE PAIN/WEAKNESS TO YOUR PROVIDER 90 Dec 20, 2018 [id number] Nov 12, 2018 PAMELA RAMSEY BUDESONIDE 160MCG/FORMOTEROL FUM 4.5MCG/SPRAY INHL,ORAL,10.2 GM Active INHALE 2 PUFFS BY MOUTH TWO TIMES A DAY FOR BREATHING. SHAKE WELL. RINSE MOUTH AND SPIT AFTER EACH USE. 3 Apr 24, 2020 [id number] August 22, 2019 [facility] CALCIUM/VITAMIN D TAB No n-VA TAKE BY MOUTH ONCE A DAY Non-V A Documented by: PADMA LONG nted at: [facility] CARBOXYMETHYLCELLULOSE NA 0.5% SOLN,OPH Active INSTILL ONE DROP IN BOTH EYES FOUR TIMES A DAY FOR DRY EYES 15 Feb 01, 2020 [id number] September 03 0 NEDA SHAW [facility] DICLOFENAC NA 1% GEL,TOP Discontinued APPLY 2 GRAMS A FFECTED AREA TWO TIMES A DAY NEEDED FOR PAIN AND INFLAMMATION. DO NOT EXCEED 16GM DAILY TO ANY AFFECTED JOINT OF LOWER EXTREMITIES. DO NOT EXCEED 8GM DAILY TO ANY AFFECTED JOINT OF UPPER EXTREMITES. DO NOT EXCEED TOTAL DOSE OF 32GM DAILY FOR ALL JOINTS. 100 Oct 31, 2018 [id number] Oct 06, 2018 ANAYELI KIRKPATRICK [facility] DICLOFENAC NA 1% GEL,TOP APPLY 2 GRAMS A FFECTED AREA TWO TIMES A DAY NEEDED FOR PAIN AND INFLAMMATION. DO NOT EXCEED 16GM DAILY TO ANY AFFECTED JOINT OF LOWER EXTREMITIES. DO NOT EXCEED 8GM DAILY TO ANY AFFECTED JOINT OF UPPER EXTREMITES. DO NOT EXCEED TOTAL DOSE OF 32GM DAILY FOR ALL JOINTS. 100 Jan 17, 2019 [id number] Dec 20, 2018 PAMELA RAMSEY FLUTICASONE PROPIONATE 50MCG/SPRAY SOLN,NASAL,16GM Active INSTILL 1 SPRAY IN EACH NOSTRIL ONCE A DAY SHAKE GENTLY BEFORE USE! - MUST BE USED DIRECTED FOR 3 WEEKS TO PROVIDE BENEFIT. * NO EARLY REFILLS * 1UNIT = 30DAYS AT 4 PF/DAY OR 60DAYS AT 2PF/DAY 2 Dec 19, 2019 [id number] August 26, 2019 PAMELA RAMSEY KETOTIFEN 0.025% SOLN,OPH Active INSTILL 1 DROP IN BOTH EYES TWO TIMES A DAY FOR RELIEF OF ALLERGY SYMPTOMS IN EYE(S) 10 Feb 01, 2020 [id number] September 04, 2019 NEDA SHAW Luda [facility] LANCET,SOFTCLIX Active USE LANCET BIW FOR TESTING BL OOD GLUCOSE DIRECTED 100 Sep 29, 2020 [id number] Sep 30, 2019 [facility] LANCET,SOFTCLIX Discontinued USE LANCET BIW FO R TESTING BLOOD GLUCOSE DIRECTED 100 Dec 19, 2019 [id number] Jun 06, 2019 PAMELA RAMSEY LANCET,SOFTCLIX Discontinued USE LANCET BIW FO R TESTING BLOOD GLUCOSE DIRECTED 100 Jul 25, 2019 [id number] Nov 12, 2018 PAMELA RAMSEY LISINOPRIL 40MG TAB Non- VA TAKE ONE-HALF TABLET BY MOUTH EVERY MORNING Non-VA Documented by: PAMELA RAMSEY nted at: [facility] LORATADINE/PSEUDOEPHEDRINE TAB,SA Non-VA TAKE BY MOUTH No n-VA Documented by: JUAN LANG nted at: ARTUR BLAS [facility] MAGNESIUM OXIDE 250MG TAB Non-VA TAKE [...] ACID (REPLACES ACIPHEX) 180 Dec 19, 2019 [id number] August 26, 2019 PAMELA RAMSEY POTASSIUM GLUCONATE TAB Non-VA TAKE 595MG BY MOUTH ONCE A DAY N on-VA Documented by: PADMA LONG nted at: [facility] PRASUGREL HCL 10MG TAB N on-VA TAKE ONE TABLET BY MOUTH ONCE A DAY Non-VA Documented by: KATHERINE MATT nted at: [facility] PREGABALIN 150MG CAP,ORAL Non-VA TAKE 1 [...] Documented by: ANAYELI KIRKPATRICK Docume nted at: [facility] TERBINAFINE HCL 1% CREAM,TOP Active APPLY LIGHT LY TO AFFECTED AREA TWO TIMES A DAY FOR INFECTION 90 Sep 23, 2020 [id number] Sep 24, 2019 ADRIEL HERNANDEZ UREA 20% CREAM,TOP Active APPLY LIGHTLY (20%) TO AFFECTED AREA TWO TIMES A DAY NEEDED TO PROMOTE HEALING,RUB IN UNTIL COMPLETELY ABSORBED*FOR TOPICAL USE ONLY* APPLY TO BOTH FEET DIRECTED. 90 Sep 25, 2020 [id number] Sep 26, 2019 ADRIEL HERNANDEZ Problems (Conditions): All historical and current Section Date Range: From patient's date of to the date document was create d. This section includes a list of Problems (Conditions) know n to [facility] for the patient. It includes both active and inacti ve problems (conditions). The data comes from all [place] treatment facilities. Problem Status Problem Code Date of Onset Date of Resolution Comm ent(s) Provider Source Alcohol intake above recommended sensible limits Active 325684115 PADMA LONG [facility] Allergic conjunctivitis Active 154004009 STRABANELISSETTEA Luda [facility] Bilateral senile combined form cataracts of eyes Active 44214628900 9108 STRABANEFACUNDONEDA J [facility] Bilateral tinnitus Active 3480798077748 CHASTITY JEAN [facility] Coronary arteriosclerosis Active 17198568 September 08, 2014 Entered By: PADMA LONG Comment: hx of ptca to RCA several yrs. agoSeptember 08, 2014 Entered By: PADMA LONG Comment: heart cath 09/01/14, neg. / previous stent to RCA,, [place] HATCHER, JENNEY R [facility] Diabetes mellitus Active 25971190 PAMELA RAMSEY Juan M [facility] Disorder of pancreas Active 1440180 September 08, 2014 Entered By: PADMA LONG Comment: 2.5cm low density lseion in bodyMay 2014 Entered By: PADMA LONG Comment: question of communication with pancreatic ductMay 2014 Entered By: PADMA LONG Comment: favored to be cystic pancreatic cancerMay 2014 Entered By: PADMA LONG Comment: per abdominal CT 09/01/14, [place] PADMA LONG [facility] Dry eyes Active 881721169 NEDA SHWA [facility] Gastro-esophageal reflux disease without esophagitis ( SNOMED CT 185855984) Active 949362642 ALF GUEVARA Juan M [facility] Hyperlipidemia (SNOMED CT 80731723) Active 78155212 PAMELA RAMSEY [facility] Lung mass Active 773455634 September 08, 2014 E ntered By: PADMA LONG Comment: 4.5 cm mass, post. segment right upper lobe.September 08, 2014 Entered By: PADMA LONG Comment: mild adenopathy in mediastinum and bilat. [email or web address] Entered By: PADMA LONG Comment: most likely related to lung [email or web address] Entered By: PADMA LONG Comment: per ct angio of chest with contrast 09/01/14,[place] 2014 Entered By: PADMA LONG Comment: per path report- mod. differentiated bronchogenic adenoca. 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 Active 07648638 KATHERINE MATT [facility] Obesity Active 018053204 SONG BULLOCK [facility] Obstructive sleep apnea syndrome (SNOMED CT 53445030) Active 304800 015 PHILIPPE DOUGLASS [facility] Pancreatic cyst Active 43791293 [facility]E GUEVARA [facility] Papilloma of right eyelid Active 472716927470632 COLINNEDA Lares [facility] Polyp of colon Active 45665087 Jan 23 Entered By: PADMA LONG Comment: c-scope 01/17/16, multiple benign colonic polypsJun 28, 2017 Entered By: PADMA LONG Comment: c-scope,06/25/17,[facility], three benign polyps- sigmoid colon, transverse colon,cecum. see path report cprs SHARRON TORRES Mila THAYER [facility] Pulmonary emphysema Active 14894158 0 BRIANA LESLYE [facility] Sensorineural hearing loss, bilateral Active 757623451 CHASTITY JEAN [facility] Snoring Active 79927675 SONG BULLOCK [facility] Type 2 diabetes mellitus without complication Active 158453167 NEDA SHAW [facility] Environmental Allergies (ICD-9-CM 477.9) Inactive 477.9 Dec 18, 2017 PADMA LONG [facility] External hemorrhoids without mention of complication (ICD-9- CM 455.3) Inactive 455.3 Dec 18, 2017 PADMA LONG [facility] Impotence of organic origin (ICD-9-CM 607.84) Inactive 607.84 Dec 18, 2017 PADMA LONG [facility] Screening for Lipoid disorders (ICD-9-CM V77.91) Inactive V77.91 Jan 18, 2007 PADMA LONG [facility] Stye * (ICD-9-CM 373.11) Inactive 373.11 Dec 18, 201 8 Jan 18, 2007 Entered By: PADMA LONG Comment: bilat lower lids, chronic/recurrent PADMA LONG [facility] Tobacco Use Disorder, Continuous Inactive 305.1 Dec 18, 2017 Jan 18, 2007 Entered By: PADMA LONG Comment: one ppd PADMA LONG [facility] Radiology Reports: +/- 30 days of [...] the Encounter. The data comes from all [facility] facilities. Date/Time Pathology Report Provider Source Apr [...] 11:11) Microscopic examination is performed. DIAGNOSIS: Specimen: [id number] Spec Type: SURGICAL Abdulkadir: 04/03/19 Rec: 04/03/19-1241 PATHOLOGIC DIAGNOSIS Skin lesion, right upper cheek, biopsy: 1. Seborrheic keratosis, not involving resection margins. 2. Solar elastosis. Skin lesion, right lower mid margin, biopsy: 1. Seborrheic keratosis, with tumor at tissue edge/margin, but with benign features. LL COPIES TO: KATHERINE MATT [facility] PATHOLOGIST CODES: 09960/2 at 1235 The gross and microscopic examinations and interpretation were performed at [facility] Department of Pathology, [address] [place] [id number]. Slides and paraffin blocks are on file at [facility]. =--=--=--=--=--=--=--=--=--=--=--=--=--=--=--=--=--=--=--=--=--=--=--=--=--=-- Performing Laboratory: Surgical Pathology Report Performed By: [facility] [CLIA# [id number]] [address] [place] [id number] EDWARD LANGFORD [facility] 15 Encounter Notes: All associated encounter notes No Data Provided for This Section
--- OUTSIDE RECORDS SUMMARY | 2019-11-11 02:20 | XMS REPORT | Encounter Summary ---
Author Author Department of 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 Date/Time Encounter Type Encounter Description Reason Provider Source Mar 26, 2019 01:15 PM Outpatient Encounter TELEPHONE PRIMARY CAR E ICD-10-CM R73.09 Other abnormal glucose with Provider Comments: Abnormal Glucose SHANIQUA SCHMIDT [facility] IHE Encounter Template Text not used by [facility] Assessments - Encounter Diagnoses This section includes the primary and secondary diag noses documented for the Encounter. Date/Time Primary/Secondary Diagnosis Diagnosis Name Provider Source Mar 26, 2019 01:15 PM PRIMARY Other abnormal glucose ROMMEL SCHMIDT [facility] Plan of Treatment: Future Appointments (+ 6 months) and Future Tests (+/- 45 day s) The Plan of Treatment section includes future care activities for the patient fr om all VA treatment facilities. This section includes future appointments and fu ture orders which are active, pending or scheduled. Future Appointments This section includes appointments that were scheduled t o occur 6 months from the date of the Encounter, up to a maximum of 20 appointme nts. The data comes from all [place] treatment facilities. Appointment Date/Time Appointment Type Appointment Facili ty Name Apr 03, 2019 10:00 AM AMBULATORY - SURGERY ARTUR BLAS [facility] Apr 14, 2019 10:00 AM AMBULATORY - SURGERY [facility] Apr 28, 2019 11:00 AM AMBULATORY - NONE ARTUR BLAS [facility] Jun 25, 2019 11:30 AM AMBULATORY - NONE ARTUR BLAS [facility] Jun 25, 2019 01:15 PM AMBULATORY - MEDICINE ARTUR BL[facility] Jul 23, 2019 11:00 AM AMBULATORY - NONE ARTUR BLAS [facility] Jul 25, 2019 08:00 AM AMBULATORY - NONE ARTUR BLAS [facility] Aug 07, 2019 10:30 AM AMBULATORY - MEDICINE ARTUR BLAS [facility] Sep 23, 2019 11:15 AM AMBULATORY - [...] the Encounter. The data comes from all [facility] facilities. Test Date/Time Test Type Test Details Facility Name Apr 01, 2019 10:33 AM Consult Order [id number] Cons [employer] T[employer]or [employer]ice[employer] [facility] Procedures: All associated [...] and tobacco- related health factors from the VA facility where the Encounter took place. Current Smoking Status This section includes the most current smoking, or tobacco -related health factor, from the VA facility where the Encounter took place. Date/Time Current Smoking Status Comment Facility Nov 23, 2017 09:51 AM TOBACCO USER OFFERED MEDS [facility] Tobacco Use History This section includes a history of the smoking, or tobacco -related health factors, that were collected on or before the date of the Encoun ter. The data comes from the VA facility where the Encounter took place. Date/Time Smoking Status/Tobacco Use Comment Facil it Nov 23, 2017 09:51 AM CURRENT [...] Dec 01, 2005 08:32 AM NON-SMOKER [facility] Dec 01, 2005 08:32 AM NON-TOBACCO USER [facility] Advance Directives: All historical and current No Data Provided for This Section Allergies and Adverse Reactions (ADRs): All historical and current Section Date Range: From patient's date of to the date document was create d. This section includes Allergies and Adverse Reactions (ADR s) on record with VA for the patient. The data comes from a [facility] treatment facilities. It does not list Allergies/ADRs that were removed or entered in error. Some allergies/ADRs may be reported in t he Immunization section. Allergen Event Date Event Type Reaction(s) Severity Source BRILINTA September 08, 2014 Propensity to adverse reactions to drug (diso rder) [facility] [place] September 08, 2014 Propensity to adverse reactions to drug (diso rder) [facility] Medications: VA dispensed (-15 months) and Non-VA Documented (Obtained Outside A) Section Date Range: 1) prescriptions processed by a VA pharmacy in the last 15 m [facility], and 2) all medications recorded [...] TEST BLOOD GLUCOSE 50 Dec 19, 2019 [id number] September 04, 2019 PAMELA RAMSEY ACCU-CHEK CHARLES PLUS (GLUCOSE) TEST STRIP Discontinued USE 1 STRIP FOR TESTING TWO TIMES PER WEEK - DIRECTED TO TEST BLOOD GLUCOSE 50 Jul 25, 2019 [id number] Nov 12, 2018 PAMELA RAMSEY ALBUTEROL SO4 90MCG/ACTUAT (CFC-F) INHL,ORAL,6.7GM Active INHALE 2 PUFFS BY ORAL INHALATION EVERY 4 HOURS NEEDED FOR BREATHING. SHAKE WELL. RINSE MOUTHPIECE FREQUENTLY TO PREVENT CLOGGING. USE NEEDED FOR SHORTNESS OF AIR/WHEEZING FOR BREATHING. SHAKE WELL. RINSE MOUTHPIECE FREQUENTLY TO PREVENT CLOGGING. USE NEEDED FOR SHORTNESS OF AIR/WHEEZING 1 Dec 19, 2019 [id number] September 04, 2019 [facility] ALCOHOL PREP PAD Active USE 1 PAD ON SKIN BIW TO CLEAN AND DISINFECT THE SKIN 200 Sep 29, 2020 [id number] Sep 30, 2019 [facility] ALCOHOL PREP PAD Discontinued USE 1 PAD ON SKIN BI W TO CLEAN AND DISINFECT THE SKIN 200 Dec 19, 2019 [id number] Jun 06, 2019 [facility] ALCOHOL PREP PAD Discontinued USE 1 PAD ON SKIN BI W TO CLEAN AND DISINFECT THE SKIN 200 Jul 25, 2019 [id number] Nov 12, 2018 PAMELA RAMSEY [facility] ASPIRIN 25MG/DIPYRIDAMOLE 200MG CAP,SA Active T CHAPIN 1 CAPSULE BY MOUTH TWO TIMES A DAY - SWALLOW WHOLE. DO NOT CRUSH OR CHEW. FOR RECURRENT TIA/STROKE 180 Dec 19, 2019 [id number] Dec 20, 2018 PAMELA RAMSEY [facility] ASPIRIN 25MG/DIPYRIDAMOLE 200MG CAP,SA Discontinued T CHAPIN 1 CAPSULE BY MOUTH TWO TIMES A DAY - SWALLOW WHOLE. DO NOT CRUSH OR CHEW. FOR RECURRENT TIA/STROKE 180 Feb 06, 2019 [id number] Sep 28, 2018 [facility] ASPIRIN 81MG TAB,EC Non- VA TAKE ONE TABLET BY MOUTH ONCE A DAY Non-VA Documented by: PADMA LONG nted at: [facility] ATORVASTATIN CA 80MG TAB Active TAKE ONE TABLET BY MOUTH AT BEDTIME FOR CHOLESTEROL - REPORT ANY UNEXPLAINED MUSCLE PAIN/WEAKNESS TO YOUR PROVIDER 90 Dec 19, 2019 [id number] September 04, 2019 PAMELA RAMSEY [facility] ATORVASTATIN CA 80MG TAB Discontinued TAKE ONE TABLET BY MOUTH AT BEDTIME FOR CHOLESTEROL - REPORT ANY UNEXPLAINED MUSCLE PAIN/WEAKNESS TO YOUR PROVIDER 90 Dec 20, 2018 [id number] Nov 12, 2018 PAMELA RAMSEY [facility] BUDESONIDE 160MCG/FORMOTEROL FUM 4.5MCG/SPRAY INHL,ORAL,10.2 GM Active INHALE 2 PUFFS BY MOUTH TWO TIMES A DAY FOR BREATHING. SHAKE WELL. RINSE MOUTH AND SPIT AFTER EACH USE. 3 Apr 24, 2020 [id number] August 22, 2019 LISSA OATES [facility] CALCIUM/VITAMIN D TAB No n-VA TAKE BY MOUTH ONCE A DAY Non-V A Documented by: PADMA LONGume nted at: [facility] CARBOXYMETHYLCELLULOSE NA 0.5% SOLN,OPH Active INSTILL ONE DROP IN BOTH EYES FOUR TIMES A DAY FOR DRY EYES 15 Feb 01, 2020 [id number] September 03 0 [facility] DICLOFENAC NA 1% GEL,TOP Discontinued APPLY 2 GRAMS A FFECTED AREA TWO TIMES A DAY NEEDED FOR PAIN AND INFLAMMATION. DO NOT EXCEED 16GM DAILY TO ANY AFFECTED JOINT OF LOWER EXTREMITIES. DO NOT EXCEED 8GM DAILY TO ANY AFFECTED JOINT OF UPPER EXTREMITES. DO NOT EXCEED TOTAL DOSE OF 32GM DAILY FOR ALL JOINTS. 100 Oct 31, 2018 [id number] Oct 06, 2018 ANAYELI KIRKPATRICK Luda Juan M [facility] DICLOFENAC NA 1% GEL,TOP APPLY 2 GRAMS A FFECTED AREA TWO TIMES A DAY NEEDED FOR PAIN AND INFLAMMATION. DO NOT EXCEED 16GM DAILY TO ANY AFFECTED JOINT OF LOWER EXTREMITIES. DO NOT EXCEED 8GM DAILY TO ANY AFFECTED JOINT OF UPPER EXTREMITES. DO NOT EXCEED TOTAL DOSE OF 32GM DAILY FOR ALL JOINTS. 100 Jan 17, 2019 [id number] Dec 20, 2018 PAMELA RAMSEY FLUTICASONE PROPIONATE 50MCG/SPRAY SOLN,NASAL,16GM Active INSTILL 1 SPRAY IN EACH NOSTRIL ONCE A DAY SHAKE GENTLY BEFORE USE! - MUST BE USED DIRECTED FOR 3 WEEKS TO PROVIDE BENEFIT. * NO EARLY REFILLS * 1UNIT = 30DAYS AT 4 PF/DAY OR 60DAYS AT 2PF/DAY 2 Dec 19, 2019 [id number] August 26, 2019 PAMELA RAMSEY KETOTIFEN 0.025% SOLN,OPH Active INSTILL 1 DROP IN BOTH EYES TWO TIMES A DAY FOR RELIEF OF ALLERGY SYMPTOMS IN EYE(S) Feb 01, 2020 [id number] September 04, 2019 [facility] LANCET,SOFTCLIX Active USE LANCET BIW FOR TESTING BL OOD GLUCOSE DIRECTED 100 Sep 29, 2020 [id number] Sep 30, 2019 [facility] LANCET,SOFTCLIX Discontinued USE LANCET BIW FO R TESTING BLOOD GLUCOSE DIRECTED Dec 19, 2019 [id number] Jun 06, 2019 PAMELA RAMSEY LANCET,SOFTCLIX Discontinued USE LANCET BIW FO R TESTING BLOOD GLUCOSE DIRECTED 100 Jul 25, 2019 [id number] Nov 12, 2018 PAMELA RAMSEY LISINOPRIL 40MG TAB Non- VA TAKE ONE-HALF TABLET BY MOUTH EVERY MORNING Non-VA Documented by: PAMELA RAMSEY nted at: [facility] LORATADINE/PSEUDOEPHEDRINE TAB,SA Non-VA TAKE BY MOUTH No n-VA Documented by: JUAN LANGume nted at: [facility] MAGNESIUM OXIDE 250MG TAB Non-VA TAKE 125 [...] ACID (REPLACES ACIPHEX) 180 Dec 19, 2019 [id number] August 26, 2019 PAMELA RAMSEY POTASSIUM GLUCONATE TAB Non-VA TAKE 595MG BY MOUTH ONCE A DAY N on-VA Documented by: PADMA LONG nted at: [facility] PRASUGREL HCL 10MG TAB N on-VA TAKE ONE TABLET BY MOUTH ONCE A DAY Non-VA Documented by: KATHERINE MATT nted at: [facility] PREGABALIN 150MG CAP,ORAL Non-VA TAKE [...] by: ANAYELI KIRKPATRICK Docume nted at: [facility] TERBINAFINE HCL 1% CREAM,TOP Active APPLY LIGHT LY TO AFFECTED AREA TWO TIMES A DAY FOR INFECTION 90 Sep 23, 2020 [id number] Sep 24, 2019 [facility] UREA 20% CREAM,TOP Active APPLY LIGHTLY (20%) TO AFFECTED AREA TWO TIMES A DAY NEEDED TO PROMOTE HEALING,RUB IN UNTIL COMPLETELY ABSORBED*FOR TOPICAL USE ONLY* APPLY TO BOTH FEET DIRECTED. 90 Sep 25, 2020 [id number] Sep 26, 2019 [facility] Problems (Conditions): All historical and current Section [...] Alcohol intake above recommended sensible limits Active 927970877 [facility]ADMA LONG [facility] Allergic conjunctivitis Active 615300752 [facility] Bilateral senile combined form cataracts of eyes Active [id number] 9108 [facility]ANKLINFACUNDONEDA Luda [facility] Bilateral tinnitus Active 9893218761938 CHASTITY JEAN [facility] Coronary arteriosclerosis Active 93888493 September 08, 2014 Entered By: PADMA LONG Comment: hx of ptca to RCA several yrs. agoSeptember 08, 2014 Entered By: PADMA LONG Comment: heart cath 09/01/14, neg. / previous stent to RCA,, via [place]es [place] HATCHER, JENNEY R [facility] Diabetes mellitus Active 69727434 PAMELA RAMSEY [facility] Disorder of pancreas Active 8857165 September 08, 2014 Entered By: PADMA LONG Comment: 2.5cm low density lseion in bodyMay 2014 Entered By: PADMA LONG Comment: question of communication with pancreatic ductMay 2014 Entered By: PADMA LONG Comment: favored to be cystic pancreatic [email or web address] Entered By: PADMA LONG Comment: per abdominal CT 09/01/14, via [place]eses [place] FRAZIERPADMA J [facility] Dry eyes Active 260103921 [facility] Gastro-esophageal reflux disease without esophagitis ( SNOMED CT 498191889) Active 132589794 ALF GUEVARA [facility] Hyperlipidemia (SNOMED CT 88607190) Active 13082658 PAMELA RAMSEY [facility] Lung mass Active 899828012 September 08, 2014 E ntered By: PADMA LONG Comment: 4.5 cm mass, post. segment right upper lobe.September 08, 2014 Entered By: PADMA LONG Comment: mild adenopathy in mediastinum and bilat. [email or web address] Entered By: PADMA LONG Comment: most likely related to lung cancerMa2014 Entered By: PADMA LONG Comment: per ct angio of chest with contrast 09/01/14,[place] 2014 Entered By: PADMA LONG Comment: per path report- mod. differentiated bronchogenic adenoca. 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 Active 61241035 KATHERINE MATT [facility] Obesity Active 631314627 [facility] Obstructive sleep apnea syndrome (SNOMED CT 39236806) Active 786020 015 [place] [facility] Pancreatic cyst Active 97419968 JAYLENE GUEVARA [facility] Papilloma of right eyelid Active 350029166591580 [facility] SHAW [facility] Polyp of colon Active 25379407 Jan 23 16 Entered By: PADMA LONG Comment: c-scope 01/17/16, multiple benign colonic polypsJun 28, 2017 Entered By: PADMA LONG Comment: c-scope,06/25/17,[facility], three benign polyps- sigmoid colon, transverse colon,cecum. see path report cprs [facility] Pulmonary emphysema Active 82888684 0 BRIANA Ireland [facility] Sensorineural hearing loss, bilateral Active 656488481 CHASTITY JEAN [facility] Snoring Active 49111088 [facility] [facility] Type 2 diabetes mellitus without complication Active 302046955 [facility] SH[facility] Environmental Allergies (ICD-9-CM 477.9) Inactive 477.9 Dec 18, 2017 PADMA LONG [facility] External hemorrhoids without mention of complication (ICD-9- CM 455.3) Inactive 455.3 Dec 18, 2017 PAD[facility] LONG [facility] Impotence of organic origin (ICD-9-CM 607.84) Inactive 607.84 Dec 18, 2017 PADMA LONG [facility] Screening for Lipoid disorders (ICD-9-CM V77.91) Inactive V77.91 Jan 18, 2007 PADMA LONG [facility] Stye * (ICD-9-CM 373.11) Inactive 373.11 Dec 18, 201 8 Jan 18, 2007 Entered By: PADMA LONG Comment: bilat lower lids, chronic/recurrent PADMA LONG [facility] Tobacco Use Disorder, Continuous Inactive 305.1 Dec 18, 2017 Jan 18, 2007 Entered By: PADMA LONG Comment: one ppd PADMA LONG [facility] Radiology Reports: +/- 30 days of the [...] the Encounter. The data comes from all [place] treatment facilities. Date/Time Pathology Report Provider Source Apr 03, 2019 11:11 AM LR SURGICAL PATHOLOGY REPORT : Date Spec taken: Apr 03, 2019 11:11 Pathologist:BRIGDI MCGUIRE MD Date Spec rec'd: Apr 03, [...] 11:11) Microscopic examination is performed. DIAGNOSIS: Specimen: [id number] Spec Type: SURGICAL Abdulkadir: 04/03/19 Rec: 04/03/19-1241 PATHOLOGIC DIAGNOSIS Skin lesion, right upper cheek, biopsy: 1. Seborrheic keratosis, not involving resection margins. 2. Solar elastosis. Skin lesion, right lower mid margin, biopsy: 1. Seborrheic keratosis, with tumor at tissue edge/margin, but with benign features. LL COPIES TO: KATHERINE MATT [facility] PATHOLOGIST CODES: 26969/2 at 1235 The gross and microscopic examinations and interpretation were performed at [facility] Department of Pathology, [address] [place] [id number]. Slides and paraffin blocks are on file at [facility]. =--=--=--=--=--=--=--=--=--=--=--=--=--=--=--=--=--=--=--=--=--=--=--=--=--=-- Performing Laboratory: Surgical Pathology Report Performed By: [facility] [CLIA# [id number]] [facility] [place] [address] [facility] 15 Encounter Notes: All associated encounter notes No Data Provided for This Section
--- OUTSIDE RECORDS SUMMARY | 2019-11-11 02:20 | XMS REPORT | Encounter Summary ---
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 Date/Time Encounter Type Encounter Description Reason Provider Source Mar 21, 2019 10:01 AM OFFICE/OUTPATIENT VISIT EST SLEEP MEDICINE ICD-10-CM G47.33 Obstructive sleep apnea (adult) (pediatric) with Provider Comments: Obstructive sleep apnea (adult) (pediatric) PHILIPPE DOUGLASS [facility] IHE Encounter Template Text not used by [place] Assessments - Encounter Diagnoses This section includes the primary and secondary diag noses documented for the Encounter. Date/Time Primary/Secondary Diagnosis Diagnosis Name Provider Source Mar 26, 2019 09:36 AM PRIMARY Obstructive sleep apnea (a dult) (pediatric) DELMERKIMBERLY [facility] Plan of Treatment: Future Appointments (+ [...] appointme nts. The data comes from all [facility]. Appointment Date/Time Appointment Type Appointment Facili ty Name Mar 26, 2019 10:00 AM AMBULATORY - NONE [facility] Apr 03, 2019 10:00 AM AMBULATORY - SURGERY [facility] Apr 14, 2019 10:00 AM AMBULATORY - SURGERY [facility] Apr 28, 2019 11:00 AM AMBULATORY - NONE [facility] Jun 25, 2019 11:30 AM AMBULATORY - NONE [facility] Jun 25, 2019 01:15 PM AMBULATORY - MEDICINE [facility] Shu BLAS [facility] Jul 23, 2019 11:00 AM AMBULATORY - NONE [facility] Jul 25, 2019 08:00 AM AMBULATORY - NONE [facility] Aug 07, 2019 10:30 AM AMBULATORY - MEDICINE [facility] Shu LEVIMila [facility] Active, Pending, and Scheduled Orders This [...] the Encounter. The data comes from all [facility]. Test Date/Time Test Type Test Details Facility Name Apr 01, 2019 10:33 AM Consult Order [facility]-[id number] Cons Oleomargarine Maker's Choice [facility] Surgical Procedures: All associated to the [...] Range Comment Mar 21, 2019 08:55 AM [facility] HEMOGLOBIN A1C Specimen Type: BLOOD No [...] and tobacco- related health factors from the [place] facility where the Encounter took place. Current Smoking Status This section includes the most current smoking, or tobacco -related health factor, from the [place] facility where the Encounter took place. Date/Time Current Smoking Status Comment Facility Jun 26, 2018 02:13 PM VA-TOBACCO QUIT 15 YRS OR MORE PORSHA BLAS [facility] Tobacco Use History This section includes a history of the smoking, or tobacco -related health factors, that were collected on or before the date of the Encoun ter. The data comes from the [place] facility where the Encounter took place. Date/Time Smoking Status/Tobacco Use Comment [facility] Jun 26, 2018 02:13 PM VA-TOBACCO QUIT 15 YRS OR MORE PORSHA BLAS [facility] Jun 27, 2017 01:39 PM NON-TOBACCO USER [facility] Jun 27, 2017 01:16 PM NON-TOBACCO USER [facility] Jan 06, 2015 02:07 PM NON-TOBACCO USER [facility] C[facility]AS[facility]O C Nov 23, 2014 10:38 AM NON-TOBACCO USER [facility] Mi Oct 26, 2014 10:36 AM NON-TOBACCO USER [facility] CARRASQUILLO C Oct 14, 2014 11:09 AM NON-TOBACCO USER [facility] C[facility] C Advance Directives: All historical and [...] drug (diso rder) [facility] 15 PLAVIX September 08, 2014 Propensity to adverse reactions to drug (diso rder) [facility] 15 Medications: VA dispensed (-15 months) and Non-VA Documented (Obtained Outside V A) Section Date Range: 1) prescriptions processed by a VA pharmacy in the last 15 m [facility], and 2) all medications recorded in the [...] TEST BLOOD GLUCOSE 50 Dec 19, 2019 [id number] September 04, 2019 PAMELA RAMSEY [facility] ACCU-CHEK CHARLES PLUS (GLUCOSE) TEST STRIP Discontinued USE 1 STRIP FOR TESTING TWO TIMES PER WEEK - DIRECTED TO TEST BLOOD GLUCOSE 50 Jul 25, 2019 [id number] Nov 12, 2018 PAMELA RAMSEY ALBUTEROL SO4 90MCG/ACTUAT (CFC-F) INHL,ORAL,6.7GM Active INHALE 2 PUFFS BY ORAL INHALATION EVERY 4 HOURS NEEDED FOR BREATHING. SHAKE WELL. RINSE MOUTHPIECE FREQUENTLY TO PREVENT CLOGGING. USE NEEDED FOR SHORTNESS OF AIR/WHEEZING FOR BREATHING. SHAKE WELL. RINSE MOUTHPIECE FREQUENTLY TO PREVENT CLOGGING. USE NEEDED FOR SHORTNESS OF AIR/WHEEZING 1 Dec 19, 2019 [id number] September 04, 2019 PAMELA RAMSEY ALCOHOL PREP PAD Active USE 1 PAD ON SKIN BIW TO CLEAN AND DISINFECT THE SKIN 200 Sep 29, 2020 [id number] Sep 30, 2019 MAURICIO RANKIN [facility] ALCOHOL PREP PAD Discontinued USE 1 PAD ON SKIN BI W TO CLEAN AND DISINFECT THE SKIN 200 Dec 19, 2019 [id number] Jun 06, 2019 PAMELA RAMSEY ALCOHOL PREP PAD Discontinued USE 1 PAD ON SKIN BI W TO CLEAN AND DISINFECT THE SKIN 200 Jul 25, 2019 [id number] Nov 12, 2018 PAMELA RAMSEY ASPIRIN 25MG/DIPYRIDAMOLE 200MG CAP,SA Active T CHAPIN 1 CAPSULE BY MOUTH TWO TIMES A DAY - SWALLOW WHOLE. DO NOT CRUSH OR CHEW. FOR RECURRENT TIA/STROKE 180 Dec 19, 2019 [id number] Dec 20, 2018 PAMELA RAMSEY ASPIRIN 25MG/DIPYRIDAMOLE 200MG CAP,SA Discontinued T CHAPIN 1 CAPSULE BY MOUTH TWO TIMES A DAY - SWALLOW WHOLE. DO NOT CRUSH OR CHEW. FOR RECURRENT TIA/STROKE 180 Feb 06, 2019 [id number] Sep 28, 2018 ZACHARY GRECO V [facility] ASPIRIN 81MG TAB,EC Non- VA TAKE ONE TABLET BY MOUTH ONCE A DAY Non-VA Documented by: PADMA LONG nted at: [facility] ATORVASTATIN CA 80MG TAB Active TAKE ONE TABLET BY MOUTH AT BEDTIME FOR CHOLESTEROL - REPORT ANY UNEXPLAINED MUSCLE PAIN/WEAKNESS TO YOUR PROVIDER 90 Dec 19, 2019 [id number] September 04, 2019 PAMELA RAMSEY ATORVASTATIN CA 80MG TAB Discontinued TAKE ONE TABLET BY MOUTH AT BEDTIME FOR CHOLESTEROL - REPORT ANY UNEXPLAINED MUSCLE PAIN/WEAKNESS TO YOUR PROVIDER 90 Dec 20, 2018 [id number] Nov 12, 2018 PAMELA RAMSEY BUDESONIDE 160MCG/FORMOTEROL FUM 4.5MCG/SPRAY INHL,ORAL,10.2 GM Active INHALE 2 PUFFS BY MOUTH TWO TIMES A DAY FOR BREATHING. SHAKE WELL. RINSE MOUTH AND SPIT AFTER EACH USE. 3 Apr 24, 2020 [id number] August 22, 2019 LISSA OATES [facility] CALCIUM/VITAMIN D TAB No n-VA TAKE BY MOUTH ONCE A DAY Non-V A Documented by: PADMA LONG nted at: [facility] CARBOXYMETHYLCELLULOSE NA 0.5% SOLN,OPH Active INSTILL ONE DROP IN BOTH EYES FOUR TIMES A DAY FOR DRY EYES 15 Feb 01, 2020 [id number] September [address] [facility] DICLOFENAC NA 1% GEL,TOP Discontinued APPLY 2 GRAMS A FFECTED AREA TWO TIMES A DAY NEEDED FOR PAIN AND INFLAMMATION. DO NOT EXCEED 16GM DAILY TO ANY AFFECTED JOINT OF LOWER EXTREMITIES. DO NOT EXCEED 8GM DAILY TO ANY AFFECTED JOINT OF UPPER EXTREMITES. DO NOT EXCEED TOTAL DOSE OF 32GM DAILY FOR ALL JOINTS. 100 Oct 31, 2018 [id number] Oct 06, 2018 ANAYELI KIRKPATRICK [facility] DICLOFENAC NA 1% GEL,TOP APPLY 2 GRAMS A FFECTED AREA TWO TIMES A DAY NEEDED FOR PAIN AND INFLAMMATION. DO NOT EXCEED 16GM DAILY TO ANY AFFECTED JOINT OF LOWER EXTREMITIES. DO NOT EXCEED 8GM DAILY TO ANY AFFECTED JOINT OF UPPER EXTREMITES. DO NOT EXCEED TOTAL DOSE OF 32GM DAILY FOR ALL JOINTS. 100 Jan 17, 2019 [id number] Dec 20, 2018 PAMELA RAMSEY FLUTICASONE PROPIONATE 50MCG/SPRAY SOLN,NASAL,16GM Active INSTILL 1 SPRAY IN EACH NOSTRIL ONCE A DAY SHAKE GENTLY BEFORE USE! - MUST BE USED DIRECTED FOR 3 WEEKS TO PROVIDE BENEFIT. * NO EARLY REFILLS * 1UNIT = 30DAYS AT 4 PF/DAY OR 60DAYS AT 2PF/DAY 2 Dec 19, 2019 [id number] August 26, 2019 PAMELA RAMSEY KETOTIFEN 0.025% SOLN,OPH Active INSTILL 1 DROP IN BOTH EYES TWO TIMES A DAY FOR RELIEF OF ALLERGY SYMPTOMS IN EYE(S) 10 Feb 01, 2020 [id number] September 04, 2019 [facility] LANCET,SOFTCLIX Active USE LANCET BIW FOR TESTING BL OOD GLUCOSE DIRECTED 100 Sep 29, 2020 [id number] Sep 30, 2019 MAURICIO RANKIN LANCET,SOFTCLIX Discontinued USE LANCET BIW FO R TESTING BLOOD GLUCOSE DIRECTED 100 Dec 19, 2019 [id number] Jun 06, 2019 PAMELA RAMSEY LANCET,SOFTCLIX Discontinued USE LANCET BIW FO R TESTING BLOOD GLUCOSE DIRECTED 100 Jul 25, 2019 [id number] Nov 12, 2018 PAMELA RAMSEY LISINOPRIL 40MG TAB Non- VA TAKE ONE-HALF TABLET BY MOUTH EVERY MORNING Non-VA Documented by: PAMELA RAMSEY nted at: [facility] LORATADINE/PSEUDOEPHEDRINE TAB,SA Non-VA TAKE BY MOUTH No n-VA Documented by: JUAN LANG nted at: [facility] MAGNESIUM OXIDE 250MG TAB Non-VA TAKE [...] ACID (REPLACES ACIPHEX) 180 Dec 19, 2019 [id number] August 26, 2019 PAMELA RAMSEY POTASSIUM GLUCONATE TAB Non-VA TAKE 595MG BY MOUTH ONCE A DAY N on-VA Documented by: PADMA LONG nted at: [facility] PRASUGREL HCL 10MG TAB N on-VA TAKE ONE TABLET BY MOUTH ONCE A DAY Non-VA Documented by: KATHERINE MATT nted at: [facility] PREGABALIN 150MG CAP,ORAL Non-VA TAKE 1 CAPSULE BY MOUTH TWO TIMES A DAY Non-VA Docume nted by: PAMELA RAMSEY nted at: [facility] PREGABALIN 150MG CAP,ORAL Non-VA TAKE 1 CAPSULE BY MOUTH TWO TIMES A DAY Non-VA Docume nted by: PAMELA RAMSEY nted at: [facility] SEMAGLUTIDE INJ,SOLN Non -VA INJECT SUBCUTANEOUSLY EVERY WEEK Non-VA Documented by: ANAYELI KIRKPATRICKume nted at: [facility] TERBINAFINE HCL 1% CREAM,TOP Active APPLY LIGHT LY TO AFFECTED AREA TWO TIMES A DAY FOR INFECTION 90 Sep 23, 2020 [id number] Sep 24, 2019 ADRIEL HERNANDEZ CB UREA 20% CREAM,TOP Active APPLY LIGHTLY (20%) TO AFFECTED AREA TWO TIMES A DAY NEEDED TO PROMOTE HEALING,RUB IN UNTIL COMPLETELY ABSORBED*FOR TOPICAL USE ONLY* APPLY TO BOTH FEET DIRECTED. 90 Sep 25, 2020 [id number] Sep 26, 2019 ADRIEL HERNANDEZ [facility] Problems (Conditions): All historical and current Section [...] Alcohol intake above recommended sensible limits Active 686258068 PADMA LONG [facility] Allergic conjunctivitis Active 537914768 [facility] Luda [facility] Bilateral senile combined form cataracts of eyes Active 68519682843 [facility] Bilateral tinnitus Active [id number] CHASTITY JEAN [facility] Coronary arteriosclerosis Active 45330414 September 08, 2014 Entered By: PADMA LONG Comment: hx of ptca to RCA several yrs. agoSeptember 08, 2014 Entered By: PADMA LONG Comment: heart cath 09/01/14, neg. / previous stent to RCA,, [place] HATCHER, JENNEY R [facility] Diabetes mellitus Active 32396262 PAMELA RAMSEY [facility] Disorder of pancreas Active 2119937 September 08, 2014 Entered By: PADMA LONG Comment: 2.5cm low density lseion in bodyMay 2014 Entered By: PADMA LONG Comment: question of communication with pancreatic ductMa2014 Entered By: PADMA LONG Comment: favored to be cystic pancreatic cancerSeptember 08, 2014 Entered By: PADMA LONG Comment: per abdominal CT 09/01/14, [place] PADMA LONG [facility] Dry eyes Active 418496148 [facility] Gastro-esophageal reflux disease without esophagitis ( SNOMED CT 340496354) Active 384900251 ALF GUEVARA [facility] Hyperlipidemia (SNOMED CT 56354777) Active 65952974 PAMELA RAMSEY [facility] Lung mass Active 758265644 September 08, 2014 E ntered By: PADMA LONG Comment: 4.5 cm mass, post. segment right upper lobe.September 08, 2014 Entered By: PADMA LONG Comment: mild adenopathy in mediastinum and bilat. hilaMa2014 Entered By: PADMA LONG Comment: most likely related to lung cancerMa2014 Entered By: PADMA LONG Comment: per ct angio of chest with contrast 09/01/14,[place] Entered By: PADMA LONG Comment: per path report- mod. differentiated bronchogenic adenoca. 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 Active 59172722 KATHERINE MATT [facility] Obesity Active 891259297 [facility] B[facility] Obstructive sleep apnea syndrome (SNOMED CT 00031563) Active 760522 015 PHILIPPE DOUGLASS [facility] Pancreatic cyst Active 61975529 [facility] Papilloma of right eyelid Active [id number] NEDA SHAW [facility] Polyp of colon Active 67308345 Jan 23 16 Entered By: PADMA LONG Comment: c-scope 01/17/16, multiple benign colonic polypsJun 28, 2017 Entered By: PADMA LONG Comment: c-scope,06/25/17,[facility], three benign polyps- sigmoid colon, transverse colon,cecum. see path report cprs [facility]ON [facility]. [facility] Pulmonary emphysema Active 86765040 [address] [facility] Sensorineural hearing loss, bilateral Active 150347203 CHASTITY JEAN [facility] Snoring Active 38293377 SONG BULLOCK [facility] Type 2 diabetes mellitus without complication Active 165090574 COLINNEDA [facility] Environmental Allergies (ICD-9-CM 477.9) Inactive 477.9 Dec 18, 2017 PADMA LONG [facility] External hemorrhoids without mention of complication (ICD-9- CM 455.3) Inactive 455.3 Dec 18, 2017 [facility] Impotence of organic origin (ICD-9-CM 607.84) Inactive 607.84 Dec 18, 2017 [facility] Screening for Lipoid disorders (ICD-9-CM V77.91) Inactive V77.91 Jan 18, 2007 PADMA LONG [facility] Stye * (ICD-9-CM 373.11) Inactive 373.11 Dec 18 8 Jan 18, 2007 Entered By: PADMA LONG Comment: bilat lower lids, chronic/recurrent [facility] Tobacco Use Disorder, Continuous Inactive 305.1 Dec 18, 2017 Jan 18, 2007 Entered By: PADMA LONG Comment: one ppd PADMA LONG [facility] Radiology Reports: +/- 30 days of [...] the Encounter. The data comes from all [facility] facilities. Date/Time Pathology Report Provider [...] 11:11) Microscopic examination is performed. DIAGNOSIS: Specimen: [id number] Spec Type: SURGICAL Abdulkadir: 04/03/19 Rec: 04/03/19-1241 PATHOLOGIC DIAGNOSIS Skin lesion, right upper cheek, biopsy: 1. Seborrheic keratosis, not involving resection margins. 2. Solar elastosis. Skin lesion, right lower mid margin, biopsy: 1. Seborrheic keratosis, with tumor at tissue edge/margin, but with benign features. LL COPIES TO: KATHERINE MATT [facility] PATHOLOGIST CODES: 30005/2 at 1235 The gross and microscopic examinations and interpretation were performed at [facility] Department of Pathology, [address] [place] [id number]. Slides and paraffin blocks are on file at [facility]. =--=--=--=--=--=--=--=--=--=--=--=--=--=--=--=--=--=--=--=--=--=--=--=--=--=-- Performing Laboratory: Surgical Pathology Report Performed By: [CLIA# [id number]] [facility] [place] [place] [address] [facility] 15 Encounter Notes: All associated encounter notes No Data Provided for This Section
--- OUTSIDE RECORDS SUMMARY | 2019-11-11 02:20 | XMS REPORT | Encounter Summary ---
Author Author [facility] Organization Department of [facility] Affai Address [address] [place] [address] Phone Unavailable Care Team Providers Care Cad Intern Name Role Phone ADRIEL HERNANDEZ PCP Unavailable Insurance Providers: All historical and current No Data Provided for This Section Selected Encounter This section includes the information on record at [place] for the Encounter. Date/Time Encounter Type Encounter Description Reason Provider Source Mar 31, 2019 03:14 PM Outpatient Encounter COMMUNITY CARE CONSULT ARTUR BLAS [facility] IHE Encounter Template Text not used by [place] Assessments - Encounter Diagnoses No Data Provided for This Section Plan of Treatment: Future Appointments (+ 6 months) and Future Tests (+/- 45 day s) The Plan of Treatment section includes future care activities for the patient fr om all [place] treatment facilities. This section includes future appointments and fu ture orders which are active, pending or scheduled. Future Appointments This section includes appointments that were scheduled t o occur 6 months from the date of the Encounter, up to a maximum of 20 appointme nts. The data comes from all [place] treatment facilities. Appointment Date/Time Appointment Type Appointment Facili ty Name Apr 03, 2019 10:00 AM AMBULATORY - SURGERY ARTUR BLAS [facility] Apr 14, 2019 10:00 AM AMBULATORY - SURGERY [facility] Apr 28, 2019 11:00 AM AMBULATORY - NONE ARTUR MAYFIELD C Jun 25, 2019 11:30 AM AMBULATORY - NONE ARTUR CARRASQUILLO C Jun 25, 2019 01:15 PM AMBULATORY - MEDICINE ARTUR BLAS [facility] Jul 23, 2019 11:00 AM AMBULATORY - NONE ARTUR MAYFIELD C Jul 25, 2019 08:00 AM AMBULATORY - NONE ARTUR MAYFIELD C Aug 07, 2019 10:30 AM AMBULATORY - MEDICINE ARTUR BLAS [facility] Sep 23, 2019 11:15 AM AMBULATORY - [...] the Encounter. The data comes from all [place] treatment facilities. Test Date/Time Test Type Test Details Facility Name Apr 01, 2019 10:33 AM Consult Order [facility] PULMONARY-[id number] Cons Human Resources Associate's Choice [facility] Surgical Procedures: All associated to the encounter No Data Provided for This Section Lab Results: +/- 30 days of the encounter This section includes the Chemistry and Hematology Lab R esults on record with [place] for the patient. Radiology Reports and Pathology Report s are provided separately, in subsequent sections. Lab Results This section contains the Chemistry/Hematology Results usha t were resulted 30 days before or 30 days after the date of the Encounter. Date/Time Source Result Type Result - Unit Interpretation Reference Range Comment Mar 21, 2019 08:55 AM [facility] HEMOGLOBIN A1C Specimen Type: BLOOD No comment [...] and tobacco- related health factors from the [place] facility where the Encounter took place. Current Smoking Status This section includes the most current smoking, or tobacco -related health factor, from the [place] facility where the Encounter took place. Date/Time Current Smoking Status Comment Facility Jun 26, 2018 02:13 PM VA-TOBACCO QUIT 15 YRS OR MORE PORSHA BLAS [facility] Tobacco Use History This section includes a history of the smoking, or tobacco -related health factors, that were collected on or before the date of the Encoun ter. The data comes from the [place] facility where the Encounter took place. Date/Time Smoking Status/Tobacco Use Comment [facility] Jun 26, 2018 02:13 PM VA-TOBACCO QUIT 15 YRS OR MORE PORSHA BLAS [facility] Jun 27, 2017 01:39 PM NON-TOBACCO [...] patient. The data comes from a ll [place] treatment facilities. It does not list Allergies/ADRs that were removed or entered in error. Some allergies/ADRs may be reported in t Immunization section. Allergen Event Date Event Type Reaction(s) Severity Source [place] September 08, 2014 Propensity to adverse reactions to drug (diso rder) [facility] [place] September 08, 2014 Propensity to adverse reactions to drug (diso rder) [facility] Medications: VA dispensed (-15 months) and Non-VA Documented (Obtained Outside V A) Section Date Range: 1) prescriptions processed by a VA pharmacy in the last 15 m [facility], and 2) all medications recorded in the VA medical record as "non-VA medic ations". Pharmacy terms refer to [place] pharmacy's work on prescriptions. VA patient s are advised to take their medications as instructed by their health care team. The data comes from all [place] treatment facilities. Glossary of Pharmacy Terms:Active = A prescription that can be filled at the local VA pharmacy.Active: On Hold = An active prescription that will not be filled until pharmacy resolves the issue.Active: Susp = An active prescription that is not scheduled to be filled yet.Clinic Order = A medication received during a visit to a [place] clinic or emergency department (currently not available).Discontinued [...] may be a prescription from either the [place] or other providers that was filled outside the [place]. Or, it may be an over the [...] TEST BLOOD GLUCOSE 50 Dec 19, 2019 [id number] September 04, 2019 PAMELA RAMSEY GUILLERMO ACCU-CHEK CHARLES PLUS (GLUCOSE) TEST STRIP Discontinued USE 1 STRIP FOR TESTING TWO TIMES PER WEEK - DIRECTED TO TEST BLOOD GLUCOSE 50 Jul 25, 2019 [id number] Nov 12, 2018 PAMELA RAMSEY [facility] ALBUTEROL SO4 90MCG/ACTUAT (CFC-F) INHL,ORAL,6.7GM Active INHALE 2 PUFFS BY ORAL INHALATION EVERY 4 HOURS NEEDED FOR BREATHING. SHAKE WELL. RINSE MOUTHPIECE FREQUENTLY TO PREVENT CLOGGING. USE NEEDED FOR SHORTNESS OF AIR/WHEEZING FOR BREATHING. SHAKE WELL. RINSE MOUTHPIECE FREQUENTLY TO PREVENT CLOGGING. USE NEEDED FOR SHORTNESS OF AIR/WHEEZING 1 Dec 19, 2019 [id number] September 04, 2019 PAMELA RAMSEY CB ALCOHOL PREP PAD Active USE 1 PAD ON SKIN BIW TO CLEAN AND DISINFECT THE SKIN 200 Sep 29, 2020 [id number] Sep 30, 2019 CHUCHO,MARUICIO [facility] ALCOHOL PREP PAD Discontinued USE 1 PAD ON SKIN BI W TO CLEAN AND DISINFECT THE SKIN 200 Dec 19, 2019 [id number] Jun 06, 2019 PAMELA RAMSEY [facility] ALCOHOL PREP PAD Discontinued USE 1 PAD ON SKIN BI W TO CLEAN AND DISINFECT THE SKIN 200 Jul 25, 2019 [id number] Nov 12, 2018 PAMELA RAMSEY [facility] ASPIRIN 25MG/DIPYRIDAMOLE 200MG CAP,SA Active T CHAPIN 1 CAPSULE BY MOUTH TWO TIMES A DAY - SWALLOW WHOLE. DO NOT CRUSH OR CHEW. FOR RECURRENT TIA/STROKE 180 Dec 19, 2019 [id number] Dec 20, 2018 PAMELA RAMSEY [facility] ASPIRIN 25MG/DIPYRIDAMOLE 200MG CAP,SA Discontinued T CHAPIN 1 CAPSULE BY MOUTH TWO TIMES A DAY - SWALLOW WHOLE. DO NOT CRUSH OR CHEW. FOR RECURRENT TIA/STROKE 180 Feb 06, 2019 [id number] Sep 28, 2018 ZACHARY GRECO [facility] ASPIRIN 81MG TAB,EC Non- VA TAKE ONE TABLET BY MOUTH ONCE A DAY Non-VA Documented by: PADMA LONG nted at: [facility] ATORVASTATIN CA 80MG TAB Active TAKE ONE TABLET BY MOUTH AT BEDTIME FOR CHOLESTEROL - REPORT ANY UNEXPLAINED MUSCLE PAIN/WEAKNESS TO YOUR PROVIDER 90 Dec 19, 2019 [id number] September 04, 2019 BRAULIOPAEMLA [facility] N[facility] ATORVASTATIN CA 80MG TAB Discontinued TAKE ONE TABLET BY MOUTH AT BEDTIME FOR CHOLESTEROL - REPORT ANY UNEXPLAINED MUSCLE PAIN/WEAKNESS TO YOUR PROVIDER 90 Dec 20, 2018 [id number] Nov 12, 2018 PAMELA RAMSEY [facility] BUDESONIDE 160MCG/FORMOTEROL FUM 4.5MCG/SPRAY INHL,ORAL,10.2 GM Active INHALE 2 PUFFS BY MOUTH TWO TIMES A DAY FOR BREATHING. SHAKE WELL. RINSE MOUTH AND SPIT AFTER EACH USE. 3 Apr 24, 2020 [id number] August 22, 2019 LISSA OATES [facility] CALCIUM/VITAMIN D TAB No n-VA TAKE BY MOUTH ONCE A DAY Non-V A Documented by: PADMA LONG nted at: [facility] CARBOXYMETHYLCELLULOSE NA 0.5% SOLN,OPH Active INSTILL ONE DROP IN BOTH EYES FOUR TIMES A DAY FOR DRY EYES 15 Feb 01, 2020 [id number] September [address] [facility] DICLOFENAC NA 1% GEL,TOP Discontinued APPLY 2 GRAMS A FFECTED AREA TWO TIMES A DAY NEEDED FOR PAIN AND INFLAMMATION. DO NOT EXCEED 16GM DAILY TO ANY AFFECTED JOINT OF LOWER EXTREMITIES. DO NOT EXCEED 8GM DAILY TO ANY AFFECTED JOINT OF UPPER EXTREMITES. DO NOT EXCEED TOTAL DOSE OF 32GM DAILY FOR ALL JOINTS. 100 Oct 31, 2018 [id number] Oct 06, 2018 ANAYELI KIRKPATRICK Luda Juan M BLAS [facility] DICLOFENAC NA 1% GEL,TOP APPLY 2 GRAMS A FFECTED AREA TWO TIMES A DAY NEEDED FOR PAIN AND INFLAMMATION. DO NOT EXCEED 16GM DAILY TO ANY AFFECTED JOINT OF LOWER EXTREMITIES. DO NOT EXCEED 8GM DAILY TO ANY AFFECTED JOINT OF UPPER EXTREMITES. DO NOT EXCEED TOTAL DOSE OF 32GM DAILY FOR ALL JOINTS. 100 Jan 17, 2019 [id number] Dec 20, 2018 PAMELA RAMSEY FLUTICASONE PROPIONATE 50MCG/SPRAY SOLN,NASAL,16GM Active INSTILL 1 SPRAY IN EACH NOSTRIL ONCE A DAY SHAKE GENTLY BEFORE USE! - MUST BE USED DIRECTED FOR 3 WEEKS TO PROVIDE BENEFIT. * NO EARLY REFILLS * 1UNIT = 30DAYS AT 4 PF/DAY OR 60DAYS AT 2PF/DAY 2 Dec 19, 2019 [id number] August 26, 2019 PAMELA RAMSEY KETOTIFEN 0.025% SOLN,OPH Active INSTILL 1 DROP IN BOTH EYES TWO TIMES A DAY FOR RELIEF OF ALLERGY SYMPTOMS IN EYE(S) 10 Feb 01, 2020 [id number] September 04, 2019 [place] [facility] LANCET,SOFTCLIX Active USE LANCET BIW FOR TESTING BL OOD GLUCOSE DIRECTED Sep 29, 2020 [id number] Sep 30, 2019 MAURICIO RANKIN LANCET,SOFTCLIX Discontinued USE LANCET BIW FO R TESTING BLOOD GLUCOSE DIRECTED Dec 19, 2019 [id number] Jun 06, 2019 PAMELA RAMSEY LANCET,SOFTCLIX Discontinued USE LANCET BIW FO R TESTING BLOOD GLUCOSE DIRECTED Jul 25, 2019 [id number] Nov 12, 2018 PAMELA RAMSEY LISINOPRIL 40MG TAB Non- VA TAKE ONE-HALF TABLET BY MOUTH EVERY MORNING Non-VA Documented by: PAMELA RAMSEY nted at: [facility] LORATADINE/PSEUDOEPHEDRINE TAB,SA Non-VA TAKE BY MOUTH No n-VA Documented by: JUAN LANG nted at: [facility] MAGNESIUM OXIDE 250MG TAB Non-VA TAKE [...] ACID (REPLACES ACIPHEX) 180 Dec 19, 2019 [id number] August 26, 2019 PAMELA RAMSEY POTASSIUM GLUCONATE TAB Non-VA TAKE 595MG BY MOUTH ONCE A DAY N on-VA Documented by: PADMA LONG nted at: [facility] PRASUGREL HCL 10MG TAB N on-VA TAKE ONE TABLET BY MOUTH ONCE A DAY Non-VA Documented by: KATHERINE MATT nted at: [facility] PREGABALIN 150MG CAP,ORAL Non-VA TAKE 1 CAPSULE BY MOUTH TWO TIMES A DAY Non-VA Docume nted by: PAMELA RAMSEY nted at: [facility] PREGABALIN 150MG CAP,ORAL Non-VA TAKE 1 CAPSULE BY MOUTH TWO TIMES A DAY Non-VA Docume nted by: PAMELA RAMSEY nted at: [facility] SEMAGLUTIDE INJ,SOLN Non -VA INJECT SUBCUTANEOUSLY EVERY WEEK Non-VA Documented by: ANAYELI KIRKPATRICK nted at: [facility] TERBINAFINE HCL 1% CREAM,TOP Active APPLY LIGHT LY TO AFFECTED AREA TWO TIMES A DAY FOR INFECTION 90 Sep 23, 2020 [id number] Sep 24, 2019 [facility]RIEL HERNANDEZ [facility] UREA 20% CREAM,TOP Active APPLY LIGHTLY (20%) TO AFFECTED AREA TWO TIMES A DAY NEEDED TO PROMOTE HEALING,RUB IN UNTIL COMPLETELY ABSORBED*FOR TOPICAL USE ONLY* APPLY TO BOTH FEET DIRECTED. 90 Sep 25, 2020 [id number] Sep 26, 2019 ADRIEL HERNANDEZ OC Problems (Conditions): All historical and current Section Date Range: From patient's date of to the date document was create d. This section includes a list of Problems (Conditions) know n to [place] for the patient. It includes both active and inacti ve problems (conditions). The data comes from all [place] treatment facilities. Problem Status Problem Code Date of Onset Date of Resolution Comm ent(s) Provider Source Alcohol intake above recommended sensible limits Active 630903216 PADMA LONG [facility] Allergic conjunctivitis Active 263001768 [place] [facility] Bilateral senile combined form cataracts of eyes Active 62786404104 9108 [place] [facility] Bilateral tinnitus Active 9179360905159 CHASTITY JEAN [facility] Coronary arteriosclerosis Active 30698065 September 08, 2014 Entered By: PADMA LONG Comment: hx of ptca to RCA several yrs. agoSeptember 08, 2014 Entered By: PADMA LONG Comment: heart cath 09/01/14, neg. / previous stent to RCA,, via abida meneses ks HATCHER, JENNEY R ROBERT [facility] Diabetes mellitus Active 93138944 PAMELA RAMSEY [facility] Disorder of pancreas Active 0186097 September 08, 2014 Entered By: PADMA LONG Comment: 2.5cm low density lseion in bodyMay 2014 Entered By: PADMA LONG Comment: question of communication with pancreatic ductMay 2014 Entered By: PADMA LONG Comment: favored to be cystic pancreatic cancerMay 2014 Entered By: PADMA LONG Comment: per abdominal CT 09/01/14, via abida meneses ks FRAZIER, JAY J [facility] Dry eyes Active 629642767 [place] [facility] Gastro-esophageal reflux disease without esophagitis ( SNOMED CT 594779846) Active 617344786 ALF GUEVARA [facility] Hyperlipidemia (SNOMED CT 15291046) Active 77167135 KAYLIE RAMSEYT [facility] Lung mass Active 059666917 September 08, 2014 E ntered By: PADMA LONG Comment: 4.5 cm mass, post. segment right upper lobe.September 08, 2014 Entered By: PADMA LONG Comment: mild adenopathy in mediastinum and bilat. hilaMay 2014 Entered By: PADMA LONG Comment: most likely related to lung cancerMa2014 Entered By: PADMA LONG Comment: per ct angio of chest with [facility] 09/01/14[facility] Entered By: PADMA LONG Comment: per path report- mod. differentiated bronchogenic adenoca. 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 AND TERREBONNE PARISHESJAYLENE OTTO [facility] Papilloma of right eyelid Active [id number] NEDA SHAW [facility] Polyp of colon Active 55066935 Jan 23 16 Entered By: PADMA LONG Comment: c-scope 01/17/16, multiple benign colonic polypsJun 28, 2017 Entered By: PADMA LONG Comment: [facility] three benign polyps- sigmoid colon, transverse colon,cecum. see path report cprs SHARRON TORRES [facility] Pulmonary emphysema Active 89501968 0 BRIANA GAVIN [facility] Sensorineural hearing loss, bilateral Active 511047226 CHASTITY JEAN [facility] Snoring Active 63527416 [place] [facility] Type 2 diabetes mellitus without complication Active 368018127 [place] SHAW ARTUR [place] [facility] Environmental Allergies (ICD-9-CM 477.9) Inactive 477.9 Dec 18, 2017 [facility]AD[facility] External hemorrhoids without mention of complication (ICD-9- CM 455.3) Inactive 455.3 Dec 18, 2017 PADMA LONG [facility] Impotence of organic origin (ICD-9-CM 607.84) Inactive 607.84 Dec 18, 2017 PADMA LONG [facility] Screening for Lipoid disorders (ICD-9-CM V77.91) Inactive V77.91 Jan 18, 2007 [facility]ADMA [facility] Stye * (ICD-9-CM 373.11) Inactive 373.11 Dec 18, 8 Jan 18, 2007 Entered By: PADMA LONG Comment: bilat lower lids, chronic/recurrent PADMA LONG [facility] Tobacco Use Disorder, Continuous Inactive 305.1 Dec 18, 2017 Jan 18, 2007 Entered By: PADMA LONG Comment: one ppd PADMA LONG [facility] Radiology Reports: +/- 30 days of [...] the Encounter. The data comes from all [place] treatment facilities. Date/Time Pathology Report Provider Source [...] 11:11) Microscopic examination is performed. DIAGNOSIS: Specimen: [id number] Spec Type: SURGICAL Abdulkadir: 04/03/19 Rec: 04/03/19-1241 PATHOLOGIC DIAGNOSIS Skin lesion, right upper cheek, biopsy: 1. Seborrheic keratosis, not involving resection margins. 2. Solar elastosis. Skin lesion, right lower mid margin, biopsy: 1. Seborrheic keratosis, with tumor at tissue edge/margin, but with benign features. LL COPIES TO: KATHERINE MATT [facility] PATHOLOGIST CODES: 55715/2 at 1235 The gross and microscopic examinations and interpretation were performed at [facility] Department of Pathology, [address] [place] [id number]. Slides and paraffin blocks are on file at [facility]. =--=--=--=--=--=--=--=--=--=--=--=--=--=--=--=--=--=--=--=--=--=--=--=--=--=-- Performing Laboratory: Surgical Pathology Report Performed By: [facility] [CLIA# [id number]] [address] [place] [id number] [address] [facility] 15 Encounter Notes: All associated encounter notes This section contains the clinical notes associated to the Encounter. Date/Time Encounter Note(s) Provider Source Mar 31, 2019 03:14 PM NONVA NOTE: LOCAL TITLE: COMMUNITY CARE-COORDINATION NOTE [place] STANDARD TITLE: NONVA NOTE DATE OF NOTE: MAR 31, 2019@15:14 ENTRY DATE: MAR 31, 2019@15:15:06 AUTHOR: VALERIA GROVE EXP COSIGNER: URGENCY: STATUS: COMPLETED COMMUNITY CARE-COORDINATION NOTE [place] Has ADDENDA [place] is needing a consult placed for Pulmonary in his communuty. [place] is currently seeing Dr. Linwood Friedman at [facility]. can be reached at [phone]. /gisell/ VALERIA GROVE msa Signed: 03/31/2019 15:17 Receipt Acknowledged By: 04/01/2019 08:41 /frida DOMINGUEZ RN 03/31/2019 15:51 /gisell/ PAMELA Cortes APRN 04/01/2019 ADDENDUM STATUS: COMPLETED Contacted pt via telephone and discussed status of pulm consult. He reported his previous pulm consult with Dr. Friedman, has . Pt was given the instructions on renewal process. Pt reports Dr. Friedman's office did submit RFS form and faxed to [facility] approx one week ago. PCP awaiting RFS and medical records to review prior to placing consult. Will alert [facility] team. /gisell/ SHANIQUA SCHMIDT RN Signed: 04/01/2019 08:45 Receipt Acknowledged By: 04/01/2019 09:52 /gisell/ [place] DESHPANDE RN * AWAITING SIGNATURE * VALERIA GROVE 04/01/2019 ADDENDUM STATUS: COMPLETED RFS for pulmonary office visit and continuation of care of COPD was faxed by Dr. Linwood Friedman's office on 03/31/2019 at 1431 and received in my personal RightFax folder on 04/01/2019. [place] has appointment on 04/01/2019. This will be sent via secure email to members of care team at [facility] [address] [facility] Pulmonary consult if in agreement. Thank you. /gisell/ [place] PALOMINO RN Signed: 04/01/2019 09:43 Receipt Acknowledged By: * AWAITING SIGNATURE * SHANIQUA SCHMIDT JANET F ROBERT J. DOLE [facility]
--- OUTSIDE RECORDS SUMMARY | 2019-11-11 02:20 | XMS REPORT | Encounter Summary ---
Author [facility] Address [address] [place] [address] Phone Unavailable Care Team Providers Care Custom Bow Maker Name Role Phone ADRIEL HERNANDEZ PCP Unavailable Insurance Providers: All historical and current No Data Provided for This Section Selected Encounter This section includes the information on record at [place] for the Encounter. Date/Time Encounter Type Encounter Description Reason Provider Source Mar 21, 2019 09:30 AM Outpatient Encounter SLEEP MEDICINE ICD-1 0-CM G47.33 Obstructive sleep apnea (adult) (pediatric) with Provider Comments: Obstructive sleep apnea (adult) (pediatric) KARI DUPREE [facility] IHE Encounter Template Text not used by [place] Assessments - Encounter Diagnoses This section includes the primary and secondary diag noses documented for the Encounter. Date/Time Primary/Secondary Diagnosis Diagnosis Name Provider Source Mar 25, 2019 10:55 AM PRIMARY Obstructive sleep apnea (a dult) (pediatric) DELMERKIMBERLY [facility] Plan of Treatment: Future Appointments (+ 6 months) and Future Tests (+/- 45 day s) The Plan of Treatment section includes future care activities for the patient fr om all [place] treatment facilities. This section includes future appointments and fu ture orders which are active, pending or scheduled. Future Appointments This section includes appointments that were scheduled t o occur 6 months from the date of the Encounter, up to a maximum of 20 appointme nts. The data comes from all [facility]. Appointment Date/Time Appointment Type Appointment Facili ty Name Mar 26, 2019 10:00 AM AMBULATORY - NONE ARTUR BLAS [facility] Apr 03, 2019 10:00 AM AMBULATORY - SURGERY ARTUR BLAS [facility] Apr 14, 2019 10:00 AM AMBULATORY - SURGERY [facility] Apr 28, 2019 11:00 AM AMBULATORY - NONE ARTUR BLAS [facility] Jun 25, 2019 11:30 AM AMBULATORY - NONE ARTUR BLAS [facility] Jun 25, 2019 01:15 PM AMBULATORY - MEDICINE [facility]UR [facility] Jul 23, 2019 11:00 AM AMBULATORY - NONE ARTUR BLAS [facility] Jul 25, 2019 08:00 AM AMBULATORY - NONE ARTUR BLAS [facility] Aug 07, 2019 10:30 AM AMBULATORY - MEDICINE ARTUR BLAS [facility] Active, Pending, and Scheduled Orders This section [...] the Encounter. The data comes from all [facility]. Test Date/Time Test Type Test Details Facility Name Apr 01, 2019 10:33 AM Consult Order [facility]-[id number] Cons Site Inspector's Choice PRIMITIVO [facility] Surgical Procedures: All associated to the encounter No Data Provided for This Section Lab Results: +/- 30 days of the encounter This section includes the Chemistry and Hematology Lab R esults on record with [place] for the patient. Radiology Reports and Pathology Report s are provided separately, in subsequent sections. Lab Results This section contains the Chemistry/Hematology Results usha t were resulted 30 days before or 30 days after the date of the Encounter. Date/Time Source Result Type Result - Unit Interpretation Reference Range Comment Mar 21, 2019 08:55 AM [facility] HEMOGLOBIN A1C Specimen Type: BLOOD No comment [...] took place. Date/Time Smoking Status/Tobacco Use Comment [facility] it Nov 23, 2017 09:51 AM CURRENT [...] the patient. The data comes from a [facility] treatment facilities. It does not list Allergies/ADRs that were removed or entered in error. Some allergies/ADRs may be reported in t he Immunization section. Allergen Event Date Event Type Reaction(s) Severity Source BRILINTA September 08, 2014 Propensity to adverse reactions to drug (diso rder) [facility] [place] September 08, 2014 Propensity to adverse reactions to drug (diso rder) [facility] 15 Medications: VA dispensed (-15 months) and Non-VA Documented (Obtained Outside V A) Section Date Range: 1) prescriptions processed by a VA pharmacy in the last 15 m [facility], and 2) all medications recorded in the VA medical record as "non-VA medic ations". Pharmacy terms refer to VA pharmacy's work on prescriptions. VA patient s are advised to take their medications as instructed by their health care team. The data comes from all [place] treatment facilities. Glossary of Pharmacy Terms:Active = A prescription that can be filled at the local VA pharmacy.Active: On Hold = An active prescription that will not be filled until pharmacy resolves the issue.Active: Susp = An active prescription that is not scheduled to be filled yet.Clinic Order = A medication received during a visit to a [place] clinic or emergency department (currently not available).Discontinued [...] other providers that was filled outside the [place]. Or, it may be an over the [...] TEST BLOOD GLUCOSE 50 Dec 19, 2019 [id number] September 04, 2019 PAMELA RAMSEY CBGUILLERMO ACCU-CHEK CHARLES PLUS (GLUCOSE) TEST STRIP Discontinued USE 1 STRIP FOR TESTING TWO TIMES PER WEEK - DIRECTED TO TEST BLOOD GLUCOSE 50 Jul 25, 2019 [id number] Nov 12, 2018 PAMELA RAMSEY ALBUTEROL SO4 90MCG/ACTUAT (CFC-F) INHL,ORAL,6.7GM Active INHALE 2 PUFFS BY ORAL INHALATION EVERY 4 HOURS NEEDED FOR BREATHING. SHAKE WELL. RINSE MOUTHPIECE FREQUENTLY TO PREVENT CLOGGING. USE NEEDED FOR SHORTNESS OF AIR/WHEEZING FOR BREATHING. SHAKE WELL. RINSE MOUTHPIECE FREQUENTLY TO PREVENT CLOGGING. USE NEEDED FOR SHORTNESS OF AIR/WHEEZING Dec 19, 2019 [id number] September 04, 2019 PAMELA RAMSEY [facility] ALCOHOL PREP PAD Active USE 1 PAD ON SKIN BIW TO CLEAN AND DISINFECT THE SKIN 200 Sep 29, 2020 [id number] Sep 30, 2019 MAURICIO RNAKIN [facility] ALCOHOL PREP PAD Discontinued USE 1 PAD ON SKIN BI W TO CLEAN AND DISINFECT THE SKIN 200 Dec 19, 2019 [id number] Jun 06, 2019 PAMELA RAMSEY [facility] ALCOHOL PREP PAD Discontinued USE 1 PAD ON SKIN BI W TO CLEAN AND DISINFECT THE SKIN 200 Jul 25, 2019 [id number] Nov 12, 2018 PAMELA RAMSEY [facility] ASPIRIN 25MG/DIPYRIDAMOLE 200MG CAP,SA Active T CHAPIN 1 CAPSULE BY MOUTH TWO TIMES A DAY - SWALLOW WHOLE. DO NOT CRUSH OR CHEW. FOR RECURRENT TIA/STROKE 180 Dec 19, 2019 [id number] Dec 20, 2018 BRAULIOPAMELA LANGFORD [facility] ASPIRIN 25MG/DIPYRIDAMOLE 200MG CAP,SA Discontinued T CHAPIN 1 CAPSULE BY MOUTH TWO TIMES A DAY - SWALLOW WHOLE. DO NOT CRUSH OR CHEW. FOR RECURRENT TIA/STROKE 180 Feb 06, 2019 [id number] Sep 28, 2018 ZACHARY GRECO [facility] ASPIRIN 81MG TAB,EC Non- VA TAKE ONE TABLET BY MOUTH ONCE A DAY Non-VA Documented by: PADMA LONG nted at: [facility] ATORVASTATIN CA 80MG TAB Active TAKE ONE TABLET BY MOUTH AT BEDTIME FOR CHOLESTEROL - REPORT ANY UNEXPLAINED MUSCLE PAIN/WEAKNESS TO YOUR PROVIDER 90 Dec 19, 2019 [id number] September 04, 2019 PAMELA RAMSEY ATORVASTATIN CA 80MG TAB Discontinued TAKE ONE TABLET BY MOUTH AT BEDTIME FOR CHOLESTEROL - REPORT ANY UNEXPLAINED MUSCLE PAIN/WEAKNESS TO YOUR PROVIDER 90 Dec 20, 2018 [id number] Nov 12, 2018 PAMELA RAMSEY BUDESONIDE 160MCG/FORMOTEROL FUM 4.5MCG/SPRAY INHL,ORAL,10.2 GM Active INHALE 2 PUFFS BY MOUTH TWO TIMES A DAY FOR BREATHING. SHAKE WELL. RINSE MOUTH AND SPIT AFTER EACH USE. 3 Apr 24, 2020 [id number] August 22, 2019 LISSA OATES [facility] CALCIUM/VITAMIN D TAB No n-VA TAKE BY MOUTH ONCE A DAY Non-V A Documented by: PADMA LONG nted at: [facility] CARBOXYMETHYLCELLULOSE NA 0.5% SOLN,OPH Active INSTILL ONE DROP IN BOTH EYES FOUR TIMES A DAY FOR DRY EYES 15 Feb 01, 2020 [id number] September 03 0 [facility] DICLOFENAC NA 1% GEL,TOP Discontinued APPLY 2 GRAMS A FFECTED AREA TWO TIMES A DAY NEEDED FOR PAIN AND INFLAMMATION. DO NOT EXCEED 16GM DAILY TO ANY AFFECTED JOINT OF LOWER EXTREMITIES. DO NOT EXCEED 8GM DAILY TO ANY AFFECTED JOINT OF UPPER EXTREMITES. DO NOT EXCEED TOTAL DOSE OF 32GM DAILY FOR ALL JOINTS. 100 Oct 31, 2018 [id number] Oct 06, 2018 ANAYELI KIRKPATRICK [facility] DICLOFENAC NA 1% GEL,TOP APPLY 2 GRAMS A FFECTED AREA TWO TIMES A DAY NEEDED FOR PAIN AND INFLAMMATION. DO NOT EXCEED 16GM DAILY TO ANY AFFECTED JOINT OF LOWER EXTREMITIES. DO NOT EXCEED 8GM DAILY TO ANY AFFECTED JOINT OF UPPER EXTREMITES. DO NOT EXCEED TOTAL DOSE OF 32GM DAILY FOR ALL JOINTS. 100 Jan 17, 2019 [id number] Dec 20, 2018 PAMELA RAMSEY FLUTICASONE PROPIONATE 50MCG/SPRAY SOLN,NASAL,16GM Active INSTILL 1 SPRAY IN EACH NOSTRIL ONCE A DAY SHAKE GENTLY BEFORE USE! - MUST BE USED DIRECTED FOR 3 WEEKS TO PROVIDE BENEFIT. * NO EARLY REFILLS * 1UNIT = 30DAYS AT 4 PF/DAY OR 60DAYS AT 2PF/DAY 2 Dec 19, 2019 [id number] August 26, 2019 PAMELA RAMSEY KETOTIFEN 0.025% SOLN,OPH Active INSTILL 1 DROP IN BOTH EYES TWO TIMES A DAY FOR RELIEF OF ALLERGY SYMPTOMS IN EYE(S) Feb 01, 2020 [id number] September 04, 2019 [facility] LANCET,SOFTCLIX Active USE LANCET BIW FOR TESTING BL OOD GLUCOSE DIRECTED 100 Sep 29, 2020 [id number] Sep 30, 2019 MAURICIO RANKIN [facility] LANCET,SOFTCLIX Discontinued USE LANCET BIW FO R TESTING BLOOD GLUCOSE DIRECTED 100 Dec 19, 2019 [id number] Jun 06, 2019 PAMELA RAMSEY LANCET,SOFTCLIX Discontinued USE LANCET BIW FO R TESTING BLOOD GLUCOSE DIRECTED 100 Jul 25, 2019 [id number] Nov 12, 2018 PAMELA RAMSEY LISINOPRIL 40MG TAB Non- VA TAKE ONE-HALF TABLET BY MOUTH EVERY MORNING Non-VA Documented by: PAMELA RAMSEY nted at: [facility] LORATADINE/PSEUDOEPHEDRINE TAB,SA Non-VA TAKE BY MOUTH No n-VA Documented by: JUAN LANGume nted at: [facility] MAGNESIUM OXIDE 250MG TAB Non-VA TAKE [...] ACID (REPLACES ACIPHEX) 180 Dec 19, 2019 [id number] August 26, 2019 PAMELA RAMSEY POTASSIUM GLUCONATE TAB Non-VA TAKE 595MG BY MOUTH ONCE A DAY N on-VA Documented by: PADMA LONG nted at: [facility] PRASUGREL HCL 10MG TAB N on-VA TAKE ONE TABLET BY MOUTH ONCE A DAY Non-VA Documented by: KATHERINE MATT nted at: [facility] PREGABALIN 150MG CAP,ORAL Non-VA TAKE 1 CAPSULE [...] KIRKPATRICK Docume nted at: [facility] TERBINAFINE HCL 1% CREAM,TOP Active APPLY LIGHT LY TO AFFECTED AREA TWO TIMES A DAY FOR INFECTION 90 Sep 23, 2020 [id number] Sep 24, 2019 ADRIEL HERNANDEZ CB UREA 20% CREAM,TOP Active APPLY LIGHTLY (20%) TO AFFECTED AREA TWO TIMES A DAY NEEDED TO PROMOTE HEALING,RUB IN UNTIL COMPLETELY ABSORBED*FOR TOPICAL USE ONLY* APPLY TO BOTH FEET DIRECTED. 90 Sep 25, 2020 [id number] Sep 26, 2019 ADRIEL HERNANDEZ CB Problems (Conditions): All historical and current Section Date Range: From patient's date of to the date document was create d. This section includes a list of Problems (Conditions) know n to [place] for the patient. It includes both active and inacti ve problems (conditions). The data comes from all [place] treatment facilities. Problem Status Problem Code Date of Onset Date of Resolution Comm ent(s) Provider Source Alcohol intake above recommended sensible limits Active 310276509 [facility] Allergic conjunctivitis Active 481478538 [facility] Bilateral senile combined form cataracts of eyes Active 68980018110 9108 MOVILLENEDA [facility] Bilateral tinnitus Active 2231859240659 CHASTITY JEAN [facility] Coronary arteriosclerosis Active 01995336 September 08, 2014 Entered By: PADMA LONG Comment: hx of ptca to RCA several yrs. agoSeptember 08, 2014 Entered By: PADMA LONG Comment: heart cath 09/01/14, neg. / previous stent to RCA,, [place] HATCHER, JENNEY R ROBERT [facility] Diabetes mellitus Active 86782562 PAMELA RAMSEY [facility] Disorder of pancreas Active 1020290 September 08, 2014 Entered By: PADMA LONG Comment: 2.5cm low density lseion in bodyMay 2014 Entered By: PADMA LONG Comment: question of communication with pancreatic ductMa2014 Entered By: PADMA LONG Comment: favored to be cystic pancreatic cancerSeptember 08, 2014 Entered By: PADMA LONG Comment: per abdominal CT 09/01/14, [place] PADMA LONG [facility] Dry eyes Active 762255991 [facility] Gastro-esophageal reflux disease without esophagitis ( SNOMED CT 600404510) Active 408651144 ALF GUEVARA [facility] Hyperlipidemia (SNOMED CT 19477871) Active 05570409 PAMELA RAMSEY [facility] Lung mass Active 451459612 September 08, 2014 E ntered By: PADMA LONG Comment: 4.5 cm mass, post. segment right upper lobe.September 08, 2014 Entered By: PADMA LONG Comment: mild adenopathy in mediastinum and bilat. [email or web address] Entered By: PADMA LONG Comment: most likely related to lung cancerMa2014 Entered By: PADMA LONG Comment: per ct angio of chest with contrast 09/01/14,[place] 2014 Entered By: PADMA LONG Comment: per path report- mod. differentiated bronchogenic adenoca. 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 Active 84443123 KATHERINE MATT [facility] Obesity Active 637192225 SONG BULLOCK [facility] Obstructive sleep apnea syndrome (SNOMED CT 14184506) Active 023165 015 [place] [facility] Pancreatic cyst Active 14505442 JAYLENE GUEVARA [facility] Papilloma of right eyelid Active [id number] NEDA SHAW [facility] Polyp of colon Active 12942788 Jan 23 16 Entered By: PADMA LONG Comment: c-scope 01/17/16, multiple benign colonic polypsJun 28, 2017 Entered By: PADMA LONG Comment: c-scope,06/25/17,[facility], three benign polyps- sigmoid colon, transverse colon,cecum. see path report cprs SHARRON TORRES [facility] Pulmonary emphysema Active 19386460 [facility]. [facility] Sensorineural hearing loss, bilateral Active 652483537 CHASTITY JEAN [facility] Snoring Active 79321594 [place]ULL[place] [facility] Type 2 diabetes mellitus without complication Active 352788064 NEDA SHAW [facility] Environmental Allergies (ICD-9-CM 477.9) Inactive 477.9 Dec 18, 2017 PADMA LONG [facility] External hemorrhoids without mention of complication (ICD-9- CM 455.3) Inactive 455.3 Dec 18, 2017 [facility] Impotence of organic origin (ICD-9-CM 607.84) Inactive 607.84 Dec 18, 2017 [facility] Screening for Lipoid disorders (ICD-9-CM V77.91) Inactive V77.91 Jan 18, 2007 PADMA LONG [facility] Stye * (ICD-9-CM 373.11) Inactive 373.11 Dec 18, 201 8 Jan 18, 2007 Entered By: PADMA LONG Comment: bilat lower lids, chronic/recurrent [facility] Tobacco Use [...] the Encounter. The data comes from all [facility] facilities. Date/Time Pathology Report Provider Source Apr [...] 11:11) Microscopic examination is performed. DIAGNOSIS: Specimen: [id number] Spec Type: SURGICAL Abdulkadir: 04/03/19 Rec: 04/03/19-1241 PATHOLOGIC DIAGNOSIS Skin lesion, right upper cheek, biopsy: 1. Seborrheic keratosis, not involving resection margins. 2. Solar elastosis. Skin lesion, right lower mid margin, biopsy: 1. Seborrheic keratosis, with tumor at tissue edge/margin, but with benign features. LL COPIES TO: KATHERINE MATT [facility] PATHOLOGIST CODES: 53201/2 at 1235 The gross and microscopic examinations and interpretation were performed at [facility] Department of Pathology, [address] [place] [id number]. Slides and paraffin blocks are on file at [facility]. =--=--=--=--=--=--=--=--=--=--=--=--=--=--=--=--=--=--=--=--=--=--=--=--=--=-- Performing Laboratory: Surgical Pathology Report Performed By: [facility] [CLIA# [id number]] [facility] [place] [address] [facility] LAN[facility]ORD [facility] 15 Encounter Notes: All associated encounter notes No Data Provided for This Section
--- OUTSIDE RECORDS SUMMARY | 2019-11-11 02:21 | XMS REPORT | Encounter Summary ---
Author Author Department of [facility] HERBERTH kline Organization [facility] Address [address] [place] [address] Phone Unavailable Care Team Providers Care Back Office Medical Assistant Name Role Phone ADRIEL HERNANDEZ PCP Unavailable Insurance Providers: All historical and current No Data Provided for This Section Selected Encounter This section includes the information on record at [place] for the Encounter. Date/Time Encounter Type Encounter Description Reason Provider Source Mar 24, 2019 08:34 AM Outpatient Encounter PRIMARY CARE/MEDICINE [facility] IHE Encounter Template Text not used by [...] 2019 10:00 AM [facility] Apr 03, 2019 10:00 AM AMBULATORY - SURGERY [facility] Apr 14, 2019 10:00 AM AMBULATORY - SURGERY [facility] Apr 28, 2019 11:00 AM [facility] Jun 25, 2019 11:30 AM [facility] Jun 25, 2019 01:15 PM AMBULATORY - MEDICINE [facility] Jul 23, 2019 11:00 AM [facility] Jul 25, 2019 08:00 AM [facility] Aug 07, 2019 10:30 AM AMBULATORY - MEDICINE [facility] Sep 23, 2019 11:15 AM AMBULATORY - NONE [facility] Sep 23, 2019 11:30 AM AMBULATORY - MEDICINE [facility] Active, Pending, and Scheduled Orders This section [...] the Encounter. The data comes from all [place] treatment facilities. Test Date/Time Test Type Test Details Facility Name Apr 01, 2019 10:33 AM Consult Order [id number] Cons Spray [facility] Surgical Procedures: All associated to the encounter No Data Provided for This Section Lab Results: +/- 30 days of the encounter This section includes the Chemistry and Hematology Lab R esults on record with [place] for the patient. Radiology Reports and Pathology [...] and tobacco- related health factors from the [place] facility where the Encounter took place. Current [...] Encoun ter. The data comes from the [place] facility where the Encounter took place. Date/Time Smoking Status/Tobacco Use Comment [facility] it Nov 23, 2017 09:51 [...] to adverse reactions to drug (diso rder) [facility], [facility] 15 PLA[place] September 08, 2014 Propensity to adverse reactions to drug (diso rder) [facility], [facility] 15 Medications: [facility] dispensed (-15 months) [...] TEST BLOOD GLUCOSE 50 Dec 19, 2019 [id number] September 04, 2019 PAMELA RAMSEY GUILLERMO ACCU-CHEK CHARLES PLUS (GLUCOSE) TEST STRIP Discontinued USE 1 STRIP FOR TESTING TWO TIMES PER WEEK - DIRECTED TO TEST BLOOD GLUCOSE 50 Jul 25, 2019 [id number] Nov 12, 2018 PAMELA RAMSEY [facility] ALBUTEROL SO4 90MCG/ACTUAT (CFC-F) INHL,ORAL,6.7GM Active INHALE 2 PUFFS BY ORAL INHALATION EVERY 4 HOURS NEEDED FOR BREATHING. SHAKE WELL. RINSE MOUTHPIECE FREQUENTLY TO PREVENT CLOGGING. USE NEEDED FOR SHORTNESS OF AIR/WHEEZING FOR BREATHING. SHAKE WELL. RINSE MOUTHPIECE FREQUENTLY TO PREVENT CLOGGING. USE NEEDED FOR SHORTNESS OF AIR/WHEEZING 1 Dec 19, 2019 [id number] September 04, 2019 PAMELA RAMSEY [facility] ALCOHOL PREP PAD Active USE 1 PAD ON SKIN BIW TO CLEAN AND DISINFECT THE SKIN Sep 29, 2020 [id number] Sep 30, 2019 MAURICIO RANKIN [facility] ALCOHOL PREP PAD Discontinued USE 1 PAD ON SKIN BI W TO CLEAN AND DISINFECT THE SKIN 200 Dec 19, 2019 [id number] Jun 06, 2019 PAMELA RAMSEY ALCOHOL PREP PAD Discontinued USE 1 PAD ON SKIN BI W TO CLEAN AND DISINFECT THE SKIN 200 Jul 25, 2019 [id number] Nov 12, 2018 [facility] ASPIRIN 25MG/DIPYRIDAMOLE 200MG CAP,SA Active T CHAPIN 1 CAPSULE BY MOUTH TWO TIMES A DAY - SWALLOW WHOLE. DO NOT CRUSH OR CHEW. FOR RECURRENT TIA/STROKE 180 Dec 19, 2019 [id number] Dec 20, 2018 [facility] ASPIRIN 25MG/DIPYRIDAMOLE 200MG CAP,SA Discontinued T CHAPIN 1 CAPSULE BY MOUTH TWO TIMES A DAY - SWALLOW WHOLE. DO NOT CRUSH OR CHEW. FOR RECURRENT TIA/STROKE 180 Feb 06, 2019 [id number] Sep 28, 2018 ZACHARY GRECO [facility] ASPIRIN 81MG TAB,EC Non- [facility] TAKE ONE TABLET BY MOUTH ONCE A DAY Non-VA Documented by: PADMA LONG nted at: [facility] ATORVASTATIN CA 80MG TAB Active TAKE ONE TABLET BY MOUTH AT BEDTIME FOR CHOLESTEROL - REPORT ANY UNEXPLAINED MUSCLE PAIN/WEAKNESS TO YOUR PROVIDER 90 Dec 19, 2019 [id number] September 04, 2019 PAMELA RAMSEY ATORVASTATIN CA 80MG TAB Discontinued TAKE ONE TABLET BY MOUTH AT BEDTIME FOR CHOLESTEROL - REPORT ANY UNEXPLAINED MUSCLE PAIN/WEAKNESS TO YOUR PROVIDER 90 Dec 20, 2018 [id number] Nov 12, 2018 PAMELA RAMSEY BUDESONIDE 160MCG/FORMOTEROL FUM 4.5MCG/SPRAY INHL,ORAL,10.2 GM Active INHALE 2 PUFFS BY MOUTH TWO TIMES A DAY FOR BREATHING. SHAKE WELL. RINSE MOUTH AND SPIT AFTER EACH USE. 3 Apr 24, 2020 [id number] August 22, 2019 LISSA OATES [facility] CALCIUM/VITAMIN D TAB No n-VA TAKE BY MOUTH ONCE A DAY Non-V A Documented by: PADMA LONG nted at: [facility] CARBOXYMETHYLCELLULOSE NA 0.5% SOLN,OPH Active INSTILL ONE DROP IN BOTH EYES FOUR TIMES A DAY FOR DRY EYES 15 Feb 01, 2020 [id number] September 03 0 [facility] DICLOFENAC NA 1% GEL,TOP Discontinued APPLY 2 GRAMS A FFECTED AREA TWO TIMES A DAY NEEDED FOR PAIN AND INFLAMMATION. DO NOT EXCEED 16GM DAILY TO ANY AFFECTED JOINT OF LOWER EXTREMITIES. DO NOT EXCEED 8GM DAILY TO ANY AFFECTED JOINT OF UPPER EXTREMITES. DO NOT EXCEED TOTAL DOSE OF 32GM DAILY FOR ALL JOINTS. 100 Oct 31, 2018 [id number] Oct 06, 2018 ANAYELI KIRKPATRICK [facility] DICLOFENAC NA 1% GEL,TOP APPLY 2 GRAMS A FFECTED AREA TWO TIMES A DAY NEEDED FOR PAIN AND INFLAMMATION. DO NOT EXCEED 16GM DAILY TO ANY AFFECTED JOINT OF LOWER EXTREMITIES. DO NOT EXCEED 8GM DAILY TO ANY AFFECTED JOINT OF UPPER EXTREMITES. DO NOT EXCEED TOTAL DOSE OF 32GM DAILY FOR ALL JOINTS. 100 Jan 17, 2019 [id number] Dec 20, 2018 PAMELA RAMSEY FLUTICASONE PROPIONATE 50MCG/SPRAY SOLN,NASAL,16GM Active INSTILL 1 SPRAY IN EACH NOSTRIL ONCE A DAY SHAKE GENTLY BEFORE USE! - MUST BE USED DIRECTED FOR 3 WEEKS TO PROVIDE BENEFIT. * NO EARLY REFILLS * 1UNIT = 30DAYS AT 4 PF/DAY OR 60DAYS AT 2PF/DAY 2 Dec 19, 2019 [id number] August 26, 2019 PAMELA RAMSEY KETOTIFEN 0.025% SOLN,OPH Active INSTILL 1 DROP IN BOTH EYES TWO TIMES A DAY FOR RELIEF OF ALLERGY SYMPTOMS IN EYE(S) 10 Feb 01, 2020 [id number] September 04, 2019 [facility] LANCET,SOFTCLIX Active USE LANCET BIW FOR TESTING BL OOD GLUCOSE DIRECTED Sep 29, 2020 [id number] Sep 30, 2019 [facility] LANCET,SOFTCLIX Discontinued USE LANCET BIW FO R TESTING BLOOD GLUCOSE DIRECTED Dec 19, 2019 [id number] Jun 06, 2019 [facility] LANCET,SOFTCLIX Discontinued USE LANCET BIW FO R TESTING BLOOD GLUCOSE DIRECTED Jul 25, 2019 [id number] Nov 12, 2018 PAMELA RAMSEY LISINOPRIL 40MG TAB Non- [facility] TAKE ONE-HALF TABLET BY MOUTH EVERY MORNING Non-VA Documented by: PAMELA RAMSEY nted at: [facility] LORATADINE/PSEUDOEPHEDRINE TAB,SA Non-VA TAKE BY MOUTH No n-VA Documented by: JUAN LANG nted at: [facility] MAGNESIUM OXIDE 250MG TAB Non-VA TAKE [...] ACID (REPLACES ACIPHEX) 180 Dec 19, 2019 [id number] August 26, 2019 PAMELA RAMSEY POTASSIUM GLUCONATE TAB Non-VA TAKE 595MG BY MOUTH ONCE A DAY N on-VA Documented by: PADMA LONG nted at: [facility] PRASUGREL HCL 10MG TAB N on-VA TAKE ONE TABLET BY MOUTH ONCE A DAY Non-VA Documented by: KATHERINE MATT nted at: [facility] PREGABALIN 150MG [...] Documented by: ANAYELI KIRKPATRICK Docume nted at: [facility] TERBINAFINE HCL 1% CREAM,TOP Active APPLY LIGHT LY TO AFFECTED AREA TWO TIMES A DAY FOR INFECTION 90 Sep 23, 2020 [id number] Sep 24, 2019 ADRIEL HERNANDEZ UREA 20% CREAM,TOP Active APPLY LIGHTLY (20%) TO AFFECTED AREA TWO TIMES A DAY NEEDED TO PROMOTE HEALING,RUB IN UNTIL COMPLETELY ABSORBED*FOR TOPICAL USE ONLY* APPLY TO BOTH FEET DIRECTED. 90 Sep 25, 2020 [id number] Sep 26, 2019 [facility]NDE[facility] Problems [...] Alcohol intake above recommended sensible limits Active 863521681 PADMA LONG [facility] Allergic conjunctivitis Active 486166185 [facility] Bilateral senile combined form cataracts of eyes Active 00927915975 9108 [facility]A [facility] Bilateral tinnitus Active [id number] CHASTITY JEAN [facility] Coronary arteriosclerosis Active 06786214 September 08, 2014 Entered By: PADMA LONG Comment: hx of ptca to RCA several yrs. agoSeptember 08, 2014 Entered By: PADMA LONG Comment: heart cath 09/01/14, neg. / previous stent to RCA,, via abida menesespa KALA JONES [facility] Diabetes mellitus Active 58894439 PAMELA RAMSEY [facility] Disorder of pancreas Active 3961240 September 08, 2014 Entered By: PADMA LONG Comment: 2.5cm low density lseion in bodyMay 2014 Entered By: PADMA LONG Comment: question of communication with pancreatic ductMay 2014 Entered By: PADMA LONG Comment: favored to be cystic pancreatic cancerMa2014 Entered By: PADMA LONG Comment: per abdominal CT 09/01/14, via abida meneses ks FRAZIER, JAY J ROBERT [facility] Dry eyes Active 751670907 [facility] Gastro-esophageal reflux disease without esophagitis ( SNOMED CT 155973181) Active 011036344 ALF GUEVARA [facility] Hyperlipidemia (SNOMED CT 85980518) Active 08774398 PAMELA RAMSEY [facility] Lung mass Active 599539792 September 08, 2014 E ntered By: PADMA [...] report- mod. differentiated bronchogenic adenoca. 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 Active 19746265 KATHERINE MATT [facility] Obesity Active 353997188 SONG BULLOCK [facility] Obstructive sleep apnea syndrome (SNOMED CT 28224851) Active 357020 015 PHILIPPE DOUGLASS [facility] Pancreatic cyst Active 62498426 [facility] Papilloma of right eyelid Active 288179058584592 NEDA SHAW [facility] Polyp of colon Active 49872803 Jan 23 16 Entered By: PADMA LONG Comment: c-scope 01/17/16, multiple benign colonic polypsJun 28, 2017 Entered By: PADMA LONG Comment: c-scope,06/25/17,[facility], three benign polyps- sigmoid colon, transverse colon,cecum. see path report cprs [facility] Pulmonary emphysema Active 18154413 0 BRIANA GAVIN [facility] Sensorineural hearing loss, bilateral Active 308031933 CHASTITY JEAN [facility] Snoring Active 34213658 SONG BULLOCK [facility] Type 2 diabetes mellitus without complication Active 841031190 [place]IN[place]A [facility] [place] [facility] Environmental Allergies (ICD-9-CM 477.9) Inactive 477.9 Dec 18, 2017 PADMA LONG [facility] External hemorrhoids without mention of complication (ICD-9- CM 455.3) Inactive 455.3 Dec 18, 2017 PADMA LONG [facility] Impotence of organic origin (ICD-9-CM 607.84) Inactive 607.84 Dec 18, 2017 PADMA LONG [facility] Screening for Lipoid disorders (ICD-9-CM V77.91) Inactive V77.91 Jan 18, 2007 PADMA LNOG [facility] Stye * (ICD-9-CM 373.11) Inactive 373.11 Dec 18, 201 8 Jan 18, 2007 Entered By: PADMA LONG Comment: bilat lower lids, chronic/recurrent PADMA LONG [facility] Tobacco Use Disorder, Continuous Inactive 305.1 Dec 18, 2017 Jan 18, 2007 Entered By: PADMA LONG Comment: one ppd PADMA LONG [facility] Radiology Reports: +/- 30 days of [...] the Encounter. The data comes from all [place] treatment facilities. Date/Time Pathology Report Provider Source [...] 11:11) Microscopic examination is performed. DIAGNOSIS: Specimen: [id number] Spec Type: SURGICAL Abdulkadir: 04/03/19 Rec: 04/03/19-1241 PATHOLOGIC DIAGNOSIS Skin lesion, right upper cheek, biopsy: 1. Seborrheic keratosis, not involving resection margins. 2. Solar elastosis. Skin lesion, right lower mid margin, biopsy: 1. Seborrheic keratosis, with tumor at tissue edge/margin, but with benign features. LL COPIES TO: KATHERINE MATT [facility] PATHOLOGIST CODES: 32458/2 at 1235 The gross and microscopic examinations and interpretation were performed at [facility] Department of Pathology, [address] [place] [id number]. Slides and paraffin blocks are on file at [facility]. =--=--=--=--=--=--=--=--=--=--=--=--=--=--=--=--=--=--=--=--=--=--=--=--=--=-- Performing Laboratory: Surgical Pathology Report Performed By: [facility] [CLIA# [id number]] [address] [place] [id number] [address] [facility] 15 Encounter Notes: All associated encounter notes This section contains the clinical notes associated to the Encounter. Date/Time Encounter Note(s) Provider Source Mar 24, 2019 08:34 AM ADMINISTRATIVE NOTE: LOCAL TITLE: WI-ADMINISTRATIVE NOTE (BP,O) STANDARD TITLE: ADMINISTRATIVE NOTE DATE OF NOTE: MAR 24, 2019@08:34 ENTRY DATE: MAR 24, 2019@08:34:59 AUTHOR: PAMELA RAMSEY EXP COSIGNER: URGENCY: STATUS: COMPLETED [place]-ADMINISTRATIVE NOTE (BP,O) Has ADDENDA A1C reviewed 6.9. Repeat 6 months. /gisell/ PAMELA RAMSEY RF TECHNICIAN Signed: 03/24/2019 08:37 03/26/2019 ADDENDUM STATUS: COMPLETED Contacted pt via telephone and notified of A1C results and providers instructions. Pt V/U. /gisell/ SHANIQUA SCHMIDT RN Signed: 03/26/2019 13:15 PAMELA RAMSEY OC
--- OUTSIDE RECORDS SUMMARY | 2019-11-11 02:21 | XMS REPORT | Encounter Summary ---
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 Date/Time Primary/Secondary Diagnosis Diagnosis Name Provider Source Mar 10, 2019 01:35 PM PRIMARY Neoplasm of uncertain beha vior of skin HUBERT GUZMAN [facility] Mar 10, 2019 01:35 PM SECONDARY Other benign neopl asm skin/ right lower eyelid, inc cantHUBERT Gay [facility] Plan of Treatment: Future Appointments (+ 6 months) and Future Tests (+/- 45 day s) The Plan of Treatment section includes future care activities for the patient fr om all [place] treatment facilities. This section includes future appointments and fu ture orders which are active, pending or scheduled. Future Appointments This section includes appointments that were scheduled t o occur 6 months from the date of the Encounter, up to a maximum of 20 appointme nts. The data comes from all [facility]. Appointment Date/Time Appointment Type Appointment Facili ty Name Mar 21, 2019 09:15 AM AMBULATORY - NONE [facility] Mar 21, 2019 09:30 AM AMBULATORY - MEDICINE [facility] Mar 21, 2019 09:31 AM AMBULATORY - MEDICINE ARTUR BLAS [facility] Mar 21, 2019 10:00 AM AMBULATORY - MEDICINE [facility] Mar 21, 2019 10:01 AM AMBULATORY - MEDICINE [facility]UR BL[facility] Mar 26, 2019 10:00 AM AMBULATORY - NONE ARTUR BLAS [facility] Apr 03, 2019 10:00 AM AMBULATORY - SURGERY ARTUR BLAS [facility] Apr 14, 2019 10:00 AM AMBULATORY - SURGERY [facility] Apr 28, 2019 11:00 AM AMBULATORY - NONE ARTUR BLAS [facility] Jun 25, 2019 11:30 AM AMBULATORY - NONE ARTUR BLAS [facility] Jun 25, 2019 01:15 PM AMBULATORY - MEDICINE ARTUR BLAS [facility] Jul 23, 2019 11:00 AM AMBULATORY - NONE ARTUR BLAS [facility] Jul 25, 2019 08:00 AM AMBULATORY - NONE ARTUR BLAS [facility] Aug 07, 2019 10:30 AM AMBULATORY - MEDICINE ARTUR BLAS [facility] Active, Pending, and Scheduled Orders This section [...] the Encounter. The data comes from all [facility]. Test Date/Time Test Type Test Details Facility Name Apr 01, 2019 10:33 AM Consult Order [facility]-[id number] Cons Tape Maker's Choice [facility] Surgical Procedures: All associated to the encounter No Data Provided for This Section Lab Results: +/- 30 days of the encounter This section includes the Chemistry and Hematology Lab R esults on record with [place] for the patient. Radiology Reports and Pathology Report s are provided separately, in subsequent sections. Lab Results This section contains the Chemistry/Hematology Results usha t were resulted 30 days before or 30 days after the date of the Encounter. Date/Time Source Result Type Result - Unit Interpretation Reference Range Comment Mar 21, 2019 08:55 AM [facility] HEMOGLOBIN A1C Specimen Type: BLOOD No comment entered. HEMOGLOBIN A1C 6.9 % H 4.0-6.0 Vital Signs: All taken on the encounter date This section contains inpatient and outpatient Vital Signs collected on the date of the Encounter. Date/Time Temperature Pulse Blood Pressure Respiratory Rate SP02 Pa in Height Weight Body Mass Index Source Mar 10, 2019 12:47 PM 0 [facility] Immunizations: All administered on the encounter [...] patient. The data comes from a ll [place] treatment facilities. It does not list Allergies/ADRs that were removed or entered in error. Some allergies/ADRs may be reported in t he Immunization section. Allergen Event Date Event Type Reaction(s) Severity Source BRILINTA September 08, 2014 Propensity to adverse reactions to drug (diso rder) [facility] 15 PLAVIX September 08, 2014 Propensity to adverse reactions to drug (diso rder) [facility] 15 Medications: VA dispensed (-15 months) [...] care team. The data comes from all [place] treatment facilities. Glossary of Pharmacy Terms:Active = A prescription that can be filled at the local [place] pharmacy.Active: On Hold = An active prescription that will not be filled until pharmacy resolves the issue.Active: Susp = An active prescription that is not scheduled to be filled yet.Clinic Order = A medication received during a visit to a [place] clinic or emergency department (currently not available).Discontinued [...] may be a prescription from either the [place] or other providers that was filled outside the [place]. Or, it may be an over the [...] TEST BLOOD GLUCOSE 50 Dec 19, 2019 [id number] September 04, 2019 PAMELA RAMSEY ACCU-CHEK CHARLES PLUS (GLUCOSE) TEST STRIP Discontinued USE 1 STRIP FOR TESTING TWO TIMES PER WEEK - DIRECTED TO TEST BLOOD GLUCOSE 50 Jul 25, 2019 [id number] Nov 12, 2018 PAMELA RAMSEY ALBUTEROL SO4 90MCG/ACTUAT (CFC-F) INHL,ORAL,6.7GM Active INHALE 2 PUFFS BY ORAL INHALATION EVERY 4 HOURS NEEDED FOR BREATHING. SHAKE WELL. RINSE MOUTHPIECE FREQUENTLY TO PREVENT CLOGGING. USE NEEDED FOR SHORTNESS OF AIR/WHEEZING FOR BREATHING. SHAKE WELL. RINSE MOUTHPIECE FREQUENTLY TO PREVENT CLOGGING. USE NEEDED FOR SHORTNESS OF AIR/WHEEZING 1 Dec 19, 2019 [id number] September 04, 2019 PAMELA RAMSEY [facility] ALCOHOL PREP PAD Active USE 1 PAD ON SKIN BIW TO CLEAN AND DISINFECT THE SKIN Sep 29, 2020 [id number] Sep 30, 2019 MAURICIO RANKIN [facility] ALCOHOL PREP PAD Discontinued USE 1 PAD ON SKIN BI W TO CLEAN AND DISINFECT THE SKIN 200 Dec 19, 2019 [id number] Jun 06, 2019 PAMELA RAMSEY [facility] ALCOHOL PREP PAD Discontinued USE 1 PAD ON SKIN BI W TO CLEAN AND DISINFECT THE SKIN 200 Jul 25, 2019 [id number] Nov 12, 2018 PAMELA RAMSEY ASPIRIN 25MG/DIPYRIDAMOLE 200MG CAP,SA Active T CHAPIN 1 CAPSULE BY MOUTH TWO TIMES A DAY - SWALLOW WHOLE. DO NOT CRUSH OR CHEW. FOR RECURRENT TIA/STROKE 180 Dec 19, 2019 [id number] Dec 20, 2018 PAMELA RAMSEY [facility] ASPIRIN 25MG/DIPYRIDAMOLE 200MG CAP,SA Discontinued T CHAPIN 1 CAPSULE BY MOUTH TWO TIMES A DAY - SWALLOW WHOLE. DO NOT CRUSH OR CHEW. FOR RECURRENT TIA/STROKE 180 Feb 06, 2019 [id number] Sep 28, 2018 ZACHARY GRECO V [facility] ASPIRIN 81MG TAB,EC Non- [place] TAKE ONE TABLET BY MOUTH ONCE A DAY Non-VA Documented by: PADMA LONG nted at: [facility] ATORVASTATIN CA 80MG TAB Active TAKE ONE TABLET BY MOUTH AT BEDTIME FOR CHOLESTEROL - REPORT ANY UNEXPLAINED MUSCLE PAIN/WEAKNESS TO YOUR PROVIDER 90 Dec 19, 2019 [id number] September 04, 2019 PAMELA RAMSEY ATORVASTATIN CA 80MG TAB Discontinued TAKE ONE TABLET BY MOUTH AT BEDTIME FOR CHOLESTEROL - REPORT ANY UNEXPLAINED MUSCLE PAIN/WEAKNESS TO YOUR PROVIDER 90 Dec 20, 2018 [id number] Nov 12, 2018 PAMELA RAMSEY BUDESONIDE 160MCG/FORMOTEROL FUM 4.5MCG/SPRAY INHL,ORAL,10.2 GM Active INHALE 2 PUFFS BY MOUTH TWO TIMES A DAY FOR BREATHING. SHAKE WELL. RINSE MOUTH AND SPIT AFTER EACH USE. 3 Apr 24, 2020 [id number] August 22, 2019 LISSA OATES [facility] CALCIUM/VITAMIN D TAB No n-VA TAKE BY MOUTH ONCE A DAY Non-V A Documented by: PADMA LONG nted at: [facility] CARBOXYMETHYLCELLULOSE NA 0.5% SOLN,OPH Active INSTILL ONE DROP IN BOTH EYES FOUR TIMES A DAY FOR DRY EYES 15 Feb 01, 2020 [id number] September 03 0 NEDA SHAW [facility] DICLOFENAC NA 1% GEL,TOP Discontinued APPLY 2 GRAMS A FFECTED AREA TWO TIMES A DAY NEEDED FOR PAIN AND INFLAMMATION. DO NOT EXCEED 16GM DAILY TO ANY AFFECTED JOINT OF LOWER EXTREMITIES. DO NOT EXCEED 8GM DAILY TO ANY AFFECTED JOINT OF UPPER EXTREMITES. DO NOT EXCEED TOTAL DOSE OF 32GM DAILY FOR ALL JOINTS. 100 Oct 31, 2018 [id number] Oct 06, 2018 ANAYELI KIRKPATRICK Luda Juan M ROOPA [facility] DICLOFENAC NA 1% GEL,TOP APPLY 2 GRAMS A FFECTED AREA TWO TIMES A DAY NEEDED FOR PAIN AND INFLAMMATION. DO NOT EXCEED 16GM DAILY TO ANY AFFECTED JOINT OF LOWER EXTREMITIES. DO NOT EXCEED 8GM DAILY TO ANY AFFECTED JOINT OF UPPER EXTREMITES. DO NOT EXCEED TOTAL DOSE OF 32GM DAILY FOR ALL JOINTS. 100 Jan 17, 2019 [id number] Dec 20, 2018 PAMELA RAMSEY FLUTICASONE PROPIONATE 50MCG/SPRAY SOLN,NASAL,16GM Active INSTILL 1 SPRAY IN EACH NOSTRIL ONCE A DAY SHAKE GENTLY BEFORE USE! - MUST BE USED DIRECTED FOR 3 WEEKS TO PROVIDE BENEFIT. * NO EARLY REFILLS * 1UNIT = 30DAYS AT 4 PF/DAY OR 60DAYS AT 2PF/DAY 2 Dec 19, 2019 [id number] August 26, 2019 PAMELA RAMSEY KETOTIFEN 0.025% SOLN,OPH Active INSTILL 1 DROP IN BOTH EYES TWO TIMES A DAY FOR RELIEF OF ALLERGY SYMPTOMS IN EYE(S) Feb 01, 2020 [id number] September 04, 2019 NEDA SHAW [facility] LANCET,SOFTCLIX Active USE LANCET BIW FOR TESTING BL OOD GLUCOSE DIRECTED Sep 29, 2020 [id number] Sep 30, 2019 MAURICIO RANKIN LANCET,SOFTCLIX Discontinued USE LANCET BIW FO R TESTING BLOOD GLUCOSE DIRECTED Dec 19, 2019 [id number] Jun 06, 2019 PAMELA RAMSEY LANCET,SOFTCLIX Discontinued USE LANCET BIW FO R TESTING BLOOD GLUCOSE DIRECTED Jul 25, 2019 [id number] Nov 12, 2018 PAMELA RAMSEY LISINOPRIL 40MG TAB Non- VA TAKE ONE-HALF TABLET BY MOUTH EVERY MORNING Non-VA Documented by: PAMELA RAMSEY Docume nted at: [facility] LORATADINE/PSEUDOEPHEDRINE TAB,SA Non-VA TAKE BY MOUTH No n-VA Documented by: JUAN LANG Docume nted at: [facility] MAGNESIUM OXIDE 250MG TAB Non-VA [...] ACID (REPLACES ACIPHEX) 180 Dec 19, 2019 [id number] August 26, 2019 PAMELA RAMSEY POTASSIUM GLUCONATE TAB Non-VA TAKE 595MG BY MOUTH ONCE A DAY N on-VA Documented by: PADMA LONG nted at: [facility] PRASUGREL HCL 10MG TAB N on-VA TAKE ONE TABLET BY MOUTH ONCE A DAY Non-VA Documented by: KATHERINE MATT Docume nted at: [facility] PREGABALIN 150MG CAP,ORAL Non-VA TAKE 1 CAPSULE BY MOUTH TWO TIMES A DAY Non-VA Docume nted by: PAMELA RAMSEY nted at: [facility] PREGABALIN 150MG CAP,ORAL Non-VA TAKE 1 CAPSULE BY MOUTH TWO TIMES A DAY Non-VA Docume nted by: PAMELA RAMSEY nted at: [facility] SEMAGLUTIDE INJ,SOLN Non -VA INJECT SUBCUTANEOUSLY EVERY WEEK Non-VA Documented by: ANAYELI KIRKPATRICK Docume nted at: [facility] TERBINAFINE HCL 1% CREAM,TOP Active APPLY LIGHT LY TO AFFECTED AREA TWO TIMES A DAY FOR INFECTION 90 Sep 23, 2020 [id number] Sep 24, 2019 ADRIEL HERNANDEZ UREA 20% CREAM,TOP Active APPLY LIGHTLY (20%) TO AFFECTED AREA TWO TIMES A DAY NEEDED TO PROMOTE HEALING,RUB IN UNTIL COMPLETELY ABSORBED*FOR TOPICAL USE ONLY* APPLY TO BOTH FEET DIRECTED. 90 Sep 25, 2020 [id number] Sep 26, 2019 ADRIEL HERNANDEZ Problems (Conditions): All historical and current Section Date Range: From patient's date of to the date document was create d. This section includes a list of Problems (Conditions) know n to [place] for the patient. It includes both active and inacti ve problems (conditions). The data comes from all [place] treatment facilities. Problem Status Problem Code Date of Onset Date of Resolution Comm ent(s) Provider Source Alcohol intake above recommended sensible limits Active 160461766 PADMA LONG [facility] Allergic conjunctivitis Active 533050502 [facility] Bilateral senile combined form cataracts of eyes Active 02202890524 9108 [facility] Bilateral tinnitus Active 3253496001680 CHASTITY JEAN [facility] Coronary arteriosclerosis Active 69555418 September 08, 2014 Entered By: PADMA LONG Comment: hx of ptca to RCA several yrs. agoMa2014 Entered By: PADMA LONG Comment: heart cath 09/01/14, neg. / previous stent to RCA,, via abida meneses ks HATCHER, JENNEY R ROBERT [facility] Diabetes mellitus Active 96406137 PAMELA RAMSEY [facility] Disorder of pancreas Active 0562133 September 08, 2014 Entered By: PADMA LONG Comment: 2.5cm low density lseion in bodyMay 2014 Entered By: PADMA LONG Comment: question of communication with pancreatic ductMay 2014 Entered By: PADMA LONG Comment: favored to be cystic pancreatic cancerMay 2014 Entered By: PADMA LONG Comment: per abdominal CT 09/01/14, via abida meneses,PADMA Pradhan [facility] Dry eyes Active 823194481 [facility] Gastro-esophageal reflux disease without esophagitis ( SNOMED CT 251793617) Active 026770696 ALF GUEVARA [facility] Hyperlipidemia (SNOMED CT 38520896) Active 25171291 PAMELA RAMSEY [facility] Lung mass Active 790894475 September 08, 2014 E ntered By: PADMA LONG Comment: 4.5 cm mass, post. segment right upper lobe.September 08, 2014 Entered By: PADMA LONG Comment: mild adenopathy in mediastinum and bilat. hilaMa2014 Entered By: PADMA LONG Comment: most likely related to lung cancerMa2014 Entered By: PADMA LONG Comment: per ct angio of chest with contrast 09/01/14,via abida menesesflJun 2014 Entered By: PADMA LONG Comment: per path report- mod. differentiated bronchogenic adenoca. 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 Active 03969968 KATHERINE MATT [facility] Obesity Active 799694256 [facility] Obstructive sleep apnea syndrome (SNOMED CT 42355103) Active 004727 015 [place] DOU[place]ASS [facility] Pancreatic cyst Active 53344257 JAYLENE GUEVARA [facility] Papilloma of right eyelid Active [id number] NEDA SHAW [facility] Polyp of colon Active 64169566 Jan 23 16 Entered By: PADMA LONG Comment: c-scope 01/17/16, multiple benign colonic polypsJun 28, 2017 Entered By: PADMA LONG Comment: c-scope,06/25/17,[facility], three benign polyps- sigmoid colon, transverse colon,cecum. see path report cprs SHARRON TORRES [facility] Pulmonary emphysema Active 04994985 0 BRIANA GAVIN [facility] Sensorineural hearing loss, bilateral Active 246627876 CHASTITY JEAN [facility] Snoring Active 26302126 SONG BULLOCK [facility] Type 2 diabetes mellitus without complication Active 580155712 NEDA SHAW [facility] Environmental Allergies (ICD-9-CM 477.9) Inactive 477.9 Dec 18, 2017 PADMA LONG [facility] External hemorrhoids without mention of complication (ICD-9- CM 455.3) Inactive 455.3 Dec 18, 2017 [address]ADMA LONG [facility] Impotence of organic origin (ICD-9-CM 607.84) Inactive 607.84 Dec 18, 2017 PADMA LONG [facility] Screening for Lipoid disorders (ICD-9-CM V77.91) Inactive V77.91 Jan 18, 2007 PADMA LONG [facility] Stye * (ICD-9-CM 373.11) Inactive 373.11 Dec 18, 201 8 Jan 18, 2007 Entered By: PADMA LONG Comment: bilat lower lids, chronic/recurrent PADMA LONG [facility] Tobacco Use [...] the Encounter. The data comes from all [place] treatment facilities. Date/Time Pathology Report Provider Source [...] 11:11) Microscopic examination is performed. DIAGNOSIS: Specimen: [id number] Spec Type: SURGICAL Abdulkadir: 04/03/19 Rec: 04/03/19-1241 PATHOLOGIC DIAGNOSIS Skin lesion, right upper cheek, biopsy: 1. Seborrheic keratosis, not involving resection margins. 2. Solar elastosis. Skin lesion, right lower mid margin, biopsy: 1. Seborrheic keratosis, with tumor at tissue edge/margin, but with benign features. LL COPIES TO: KATHERINE MATT [facility] PATHOLOGIST CODES: 90306/2 at 1238 The gross and microscopic examinations and interpretation were performed at [facility] Department of Pathology, [address] [place] [address]. Slides and paraffin blocks are on file at [facility]. =--=--=--=--=--=--=--=--=--=--=--=--=--=--=--=--=--=--=--=--=--=--=--=--=--=-- Performing Laboratory: Surgical Pathology Report Performed By: [facility] [CLIA# [id number]] [address] [place] [address] EDWARD LANGFORD [facility] 15 Encounter Notes: All associated encounter notes This section contains the clinical notes associated to the Encounter. Date/Time Encounter Note(s) Provider Source Mar 10, 2019 01:17 PM OPHTHALMOLOGY CONSULT: LOCAL TITLE: WI-OPHTHALMOLOGY/CONSULT () STANDARD TITLE: OPHTHALMOLOGY CONSULT DATE OF NOTE: MAR 10, 2019@13:17 ENTRY DATE: MAR 10, 2019@13:17:46 AUTHOR: KATHERINE MATT EXP COSIGNER: URGENCY: STATUS: COMPLETED WI-OPHTHALMOLOGY/CONSULT (BP) Has ADDENDA CONSULT EYELID LESION POH: SLOW GROWTH OF EYELID/CHEEK LESION OVER 1 YEAR. ROS: NO HX OF SKIN CANCER PT STATES CAN SEE LID LESION WHEN LOOKING DOWNWARD. PMH: LUNG CANCER WITH RESECTION ~5 YEARS AGO PT ON NEW "BLOOD THINNER" THROUGH OUTSIDE DOCTOR. SLE: LL CLEAN OU ~3.5 mm ELEVATED MASS RIGHT LOWER EYELID/UPPER CHEEK PAPILLOMATOUS LESION WITH NO HAIR LOSS RIGHT LOWER EYELID CONJ CLEAR OU K CLEAR OU I NL OU AC QUIET AND DEEP OU IMP: NEOPLASM UNCERTAIN BEHAVIOR RIGHT UPPER CHEEK/EYELID CYSTIC LESION VS BCCA--RECOMMEND BIOPSY PAPILLOMA RIGHT LOWER LID MARGIN--PT CAN SEE WHEN LOOKING DOWN DISCUSSED CANNOT FULLY REMOVE WITHOUT DAMAGING EYELID STRUCTURE. RECOMMEN SHAVE BIOPSY EVEN WITH LID MARGIN PLAN: REVIEWED MEDICATION LIST. WILL NEED TO ADD NAME OF NEW BLOOD THINNER. BIOPSY IN ADS OF TWO LESION. PAPILLOMA SHAVE BX AND LOWER LESION EXCISIONAL BIOPSY WITH MARGINS. WILL PLACE STITCH FOR PATHOLOGY ORIENTATION OF LESION. WILL NEED F/U 1 WEEK AFTER BIOPSY FOR STITCH REMOVAL. WILL NEED NAME OF NEW BLOOD THINNER. WILL NOT NEED TO STOP MEDICATION FOR BIOPSY. /gisell/ KATHERINE MATT Staff Junk Removal Specialist Signed: 03/10/2019 13:50 Receipt Acknowledged By: 03/12/2019 11:53 /gisell/ BRO HUYNH [employer] * AWAITING SIGNATURE * NÉSTOR CHEN 03/11/2019 ADDENDUM STATUS: COMPLETED PT CALLED AND IS ON Effient 10 mg per day po. Added to non-VA medication list. /gisell/ KATHERINE MATT Staff Junk Removal Specialist Signed: 03/11/2019 09:36 KATHERINE MATT [facility] Mar 10, 2019 12:40 PM NURSING OUTPATIENT NOTE: LOCAL TITLE: [place]-SPECIALTY PRE-APPT STANDARD TITLE: NURSING OUTPATIENT NOTE DATE OF NOTE: MAR 10, 2019@12:40 ENTRY DATE: MAR 10, 2019@12:40:25 AUTHOR: ASHWINI VILLANUEVA EXP COSIGNER: URGENCY: STATUS: COMPLETED Specialty Pre-Appt Reason for appointment: Eval 64 y/o MALE ALLERGIES: PLAVIX, BRILINTA Allergies [...] ACTIVE 9) Non-VA PREGABALIN 150MG ORAL CAP 15 0MG MOUTH TWO ACTIVE TIMES A DAY 10) Non-VA SEMAGLUTIDE INJ,SOLN SUBCUT ANEOUSLY EVERY ACTIVE WEEK 20 Total Medications Compared newly ordered medications and [...] Nurse Pretest: Ocular History: Injury: No Surgery: Yes FB removal with infection Glaucoma: No Macular Degeneration: No Cataract: No Current eye meds: Yes At's- 4x a day, Ketotifen- 2x a day BARBER: 01/31/19 Dr. Gaspar Chief complaint: presents for Ophthalmology eval. [place] [facility] states no concerns with vision at this time. states no changes since 01/31/19. ORIENTATION: alert ppt MOOD: good ACCUCHECK: n/a VISUAL ACUITY: Distance with correction: Right eye 20/20-2 PH: 20/ Left eye 20/20 PH: 20/ Both eyes 20/20 Near with correction: Right eye 20/20 Left eye 20/20 Both eyes 20/20 HAB RX: Right Eye: +1.75-0.75p826 Left Eye: +1.00-0.00t421 Add: 2.50 CHAIR SKILLS: Pupils were 5mm to 4mm with no apd. EOM's were both eyes full Confrontation vasquez were right eye full, left eye full WI-PAIN: Pain Reassessment-Patient's updated pain score after intervention is: PAIN Score 0 Pain Documentation: Pain level 3 or less. WI-N DEPRESSION SCREEN : PHQ-2+I9 Depression Screening Score: 0 The score [...] in some way Not at all /gisell/ ASHWINI VILLANUEVA Health Locomotive Driver-well drill operator helper cable tool Signed: 03/10/2019 12:49 ASHWINI VILLANUEVA Y [facility]
--- OUTSIDE RECORDS SUMMARY | 2019-11-11 02:21 | XMS REPORT | Encounter Summary ---
Author Author [facility] Department of [facility] Address [address] [place] [address] Phone Unavailable Care Team Providers Care Valet Cashier Name Role Phone ADRIEL HERNANDEZ PCP Unavailable Insurance Providers: All historical and current No Data Provided for This Section Selected Encounter This section includes the information on record at [place] for the Encounter. Date/Time Encounter Type Encounter Description Reason Provider Source Mar 21, 2019 09:31 AM Outpatient Encounter SLEEP MEDICINE ICD-1 0-CM G47.33 Obstructive sleep apnea (adult) (pediatric) with Provider Comments: Obstructive Sleep Apnea (Adult) (Pediatric) KARI DUPREE [facility] IHE Encounter Template Text not used by [place] Assessments - Encounter Diagnoses This section includes the primary and secondary diag noses documented for the Encounter. Date/Time Primary/Secondary Diagnosis Diagnosis Name Provider Source Mar 21, 2019 09:31 AM PRIMARY Obstructive sleep apnea (a dult) (pediatric) DELMERKIMBERLY [facility] Plan of Treatment: Future Appointments (+ [...] appointme nts. The data comes from all [facility]. Appointment Date/Time Appointment Type Appointment Facili ty Name Mar 26, 2019 10:00 AM AMBULATORY - NONE ARTUR BLAS [facility] Apr 03, 2019 10:00 AM AMBULATORY - SURGERY ARTUR BLAS [facility] Apr 14, 2019 10:00 AM AMBULATORY - SURGERY [facility] Apr 28, 2019 11:00 AM AMBULATORY - NONE ARTUR BLAS [facility] Jun 25, 2019 11:30 AM AMBULATORY - NONE ARTUR BLAS [facility] Jun 25, 2019 01:15 PM AMBULATORY - MEDICINE ARTUR Shu BLAS Maite [facility] Jul 23, 2019 11:00 AM AMBULATORY - NONE ARTUR BLAS [facility] Jul 25, 2019 08:00 AM AMBULATORY - NONE ARTUR BLAS [facility] Aug 07, 2019 10:30 AM AMBULATORY - MEDICINE ARTUR Shu LEVIMila [facility] Active, Pending, and Scheduled Orders This section [...] the Encounter. The data comes from all [facility]. 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 Radiology Reports and Pathology Report s are provided separately, in subsequent sections. Lab Results This section contains the Chemistry/Hematology Results usha t were resulted 30 days before or 30 days after the date of the Encounter. Date/Time Source Result Type Result - Unit Interpretation Reference Range Comment Mar 21, 2019 08:55 AM [facility] HEMOGLOBIN A1C Specimen Type: BLOOD No comment [...] QUIT 15 YRS OR MORE PORSHA BLAS [facility] Tobacco Use History This section includes a history of the smoking, or tobacco -related health factors, that were collected on or before the date of the Encoun ter. The data comes from the [place] facility where the Encounter took place. Date/Time Smoking Status/Tobacco Use Comment [facility] Jun 26, 2018 02:13 PM VA-TOBACCO QUIT 15 YRS OR MORE PORSHA BLAS [facility] Jun 27, 2017 01:39 PM NON-TOBACCO [...] the patient. The data comes from a [facility] treatment facilities. It does not list Allergies/ADRs that were removed or entered in error. Some allergies/ADRs may be reported in t he Immunization section. Allergen Event Date Event Type Reaction(s) Severity Source [place] September 08, 2014 Propensity to adverse reactions to drug (diso rder) [facility], [facility] 15 [place] September 08, 2014 Propensity to adverse reactions to drug (diso rder) [facility] Medications: VA dispensed (-15 months) and Non-VA Documented (Obtained Outside A) Section Date Range: 1) prescriptions processed by a VA pharmacy in the last 15 m [facility], and 2) all medications recorded in [...] TEST BLOOD GLUCOSE 50 Dec 19, 2019 [id number] September 04, 2019 PAMELA RAMSEY GUILLERMO ACCU-CHEK CHARLES PLUS (GLUCOSE) TEST STRIP Discontinued USE 1 STRIP FOR TESTING TWO TIMES PER WEEK - DIRECTED TO TEST BLOOD GLUCOSE 50 Jul 25, 2019 [id number] Nov 12, 2018 PAMELA RAMSEY ALBUTEROL SO4 90MCG/ACTUAT (CFC-F) INHL,ORAL,6.7GM Active INHALE 2 PUFFS BY ORAL INHALATION EVERY 4 HOURS NEEDED FOR BREATHING. SHAKE WELL. RINSE MOUTHPIECE FREQUENTLY TO PREVENT CLOGGING. USE NEEDED FOR SHORTNESS OF AIR/WHEEZING FOR BREATHING. SHAKE WELL. RINSE MOUTHPIECE FREQUENTLY TO PREVENT CLOGGING. USE NEEDED FOR SHORTNESS OF AIR/WHEEZING 1 Dec 19, 2019 [id number] September 04, 2019 PAMELA RAMSEY ALCOHOL PREP PAD Active USE 1 PAD ON SKIN BIW TO CLEAN AND DISINFECT THE SKIN 200 Sep 29, 2020 [id number] Sep 30, 2019 MAURICIO RANKIN [facility] ALCOHOL PREP PAD Discontinued USE 1 PAD ON SKIN BI W TO CLEAN AND DISINFECT THE SKIN 200 Dec 19, 2019 [id number] Jun 06, 2019 PAMELA RAMSEY CBGUILLERMO ALCOHOL PREP PAD Discontinued USE 1 PAD ON SKIN BI W TO CLEAN AND DISINFECT THE SKIN 200 Jul 25, 2019 [id number] Nov 12, 2018 PAMELA RAMSEY ASPIRIN 25MG/DIPYRIDAMOLE 200MG CAP,SA Active T CHAPIN 1 CAPSULE BY MOUTH TWO TIMES A DAY - SWALLOW WHOLE. DO NOT CRUSH OR CHEW. FOR RECURRENT TIA/STROKE 180 Dec 19, 2019 [id number] Dec 20, 2018 PAMELA RAMSEY [facility] ASPIRIN 25MG/DIPYRIDAMOLE 200MG CAP,SA Discontinued T CHAPIN 1 CAPSULE BY MOUTH TWO TIMES A DAY - SWALLOW WHOLE. DO NOT CRUSH OR CHEW. FOR RECURRENT TIA/STROKE 180 Feb 06, 2019 [id number] Sep 28, 2018 ZACHARY GRECO V [facility] ASPIRIN 81MG TAB,EC Non- VA TAKE ONE TABLET BY MOUTH ONCE A DAY Non-VA Documented by: PADMA LONG nted at: [facility] ATORVASTATIN CA 80MG TAB Active TAKE ONE TABLET BY MOUTH AT BEDTIME FOR CHOLESTEROL - REPORT ANY UNEXPLAINED MUSCLE PAIN/WEAKNESS TO YOUR PROVIDER 90 Dec 19, 2019 [id number] September 04, 2019 PAMELA RAMSEY ATORVASTATIN CA 80MG TAB Discontinued TAKE ONE TABLET BY MOUTH AT BEDTIME FOR CHOLESTEROL - REPORT ANY UNEXPLAINED MUSCLE PAIN/WEAKNESS TO YOUR PROVIDER 90 Dec 20, 2018 [id number] Nov 12, 2018 PAMELA RAMSEY BUDESONIDE 160MCG/FORMOTEROL FUM 4.5MCG/SPRAY INHL,ORAL,10.2 GM Active INHALE 2 PUFFS BY MOUTH TWO TIMES A DAY FOR BREATHING. SHAKE WELL. RINSE MOUTH AND SPIT AFTER EACH USE. 3 Apr 24, 2020 [id number] August 22, 2019 LISSA OATES [facility] CALCIUM/VITAMIN D TAB No n-VA TAKE BY MOUTH ONCE A DAY Non-V A Documented by: PADMA LONG nted at: [facility] CARBOXYMETHYLCELLULOSE NA 0.5% SOLN,OPH Active INSTILL ONE DROP IN BOTH EYES FOUR TIMES A DAY FOR DRY EYES 15 Feb 01, 2020 [id number] September 03 0 [facility] DICLOFENAC NA 1% GEL,TOP Discontinued APPLY 2 GRAMS A FFECTED AREA TWO TIMES A DAY NEEDED FOR PAIN AND INFLAMMATION. DO NOT EXCEED 16GM DAILY TO ANY AFFECTED JOINT OF LOWER EXTREMITIES. DO NOT EXCEED 8GM DAILY TO ANY AFFECTED JOINT OF UPPER EXTREMITES. DO NOT EXCEED TOTAL DOSE OF 32GM DAILY FOR ALL JOINTS. 100 Oct 31, 2018 [id number] Oct 06, 2018 ANAYELI KIRKPATRICK [facility] DICLOFENAC NA 1% GEL,TOP APPLY 2 GRAMS A FFECTED AREA TWO TIMES A DAY NEEDED FOR PAIN AND INFLAMMATION. DO NOT EXCEED 16GM DAILY TO ANY AFFECTED JOINT OF LOWER EXTREMITIES. DO NOT EXCEED 8GM DAILY TO ANY AFFECTED JOINT OF UPPER EXTREMITES. DO NOT EXCEED TOTAL DOSE OF 32GM DAILY FOR ALL JOINTS. 100 Jan 17, 2019 [id number] Dec 20, 2018 PAMELA RAMSEY FLUTICASONE PROPIONATE 50MCG/SPRAY SOLN,NASAL,16GM Active INSTILL 1 SPRAY IN EACH NOSTRIL ONCE A DAY SHAKE GENTLY BEFORE USE! - MUST BE USED DIRECTED FOR 3 WEEKS TO PROVIDE BENEFIT. * NO EARLY REFILLS * 1UNIT = 30DAYS AT 4 PF/DAY OR 60DAYS AT 2PF/DAY 2 Dec 19, 2019 [id number] August 26, 2019 PAMELA RAMSEY [facility] KETOTIFEN 0.025% SOLN,OPH Active INSTILL 1 DROP IN BOTH EYES TWO TIMES A DAY FOR RELIEF OF ALLERGY SYMPTOMS IN EYE(S) Feb 01, 2020 [id number] September 04, 2019 [facility] LANCET,SOFTCLIX Active USE LANCET BIW FOR TESTING BL OOD GLUCOSE DIRECTED 100 Sep 29, 2020 [id number] Sep 30, 2019 MAURICIO RANKIN [facility] LANCET,SOFTCLIX Discontinued USE LANCET BIW FO R TESTING BLOOD GLUCOSE DIRECTED 100 Dec 19, 2019 [id number] Jun 06, 2019 PAMELA RAMSEY LANCET,SOFTCLIX Discontinued USE LANCET BIW FO R TESTING BLOOD GLUCOSE DIRECTED 100 Jul 25, 2019 [id number] Nov 12, 2018 PAMELA RAMSEY LISINOPRIL 40MG TAB Non- VA TAKE ONE-HALF TABLET BY MOUTH EVERY MORNING Non-VA Documented by: PAMELA RAMSEY nted at: [facility] LORATADINE/PSEUDOEPHEDRINE TAB,SA Non-VA TAKE BY MOUTH No n-VA Documented by: JUAN LANG nted at: [facility] MAGNESIUM OXIDE 250MG TAB [...] ACID (REPLACES ACIPHEX) 180 Dec 19, 2019 [id number] August 26, 2019 PAMELA RAMSEY POTASSIUM GLUCONATE TAB Non-VA TAKE 595MG BY MOUTH ONCE A DAY N on-VA Documented by: PADMA LONG nted at: [facility] PRASUGREL HCL 10MG TAB N on-VA TAKE ONE TABLET BY MOUTH ONCE A DAY Non-VA Documented by: KATHERINE MATT nted at: [facility] PREGABALIN 150MG CAP,ORAL Non-VA TAKE 1 CAPSULE BY MOUTH TWO TIMES A DAY Non-VA Docume nted by: PAMELA RAMSEY nted at: [facility] PREGABALIN 150MG CAP,ORAL Non-VA TAKE 1 CAPSULE BY MOUTH TWO TIMES A DAY Non-VA Docume nted by: PAMELA RAMSEY nted at: [facility] SEMAGLUTIDE INJ,SOLN Non -VA INJECT SUBCUTANEOUSLY EVERY WEEK Non-VA Documented by: ANAYELI KIRKPATRICKume nted at: [facility] TERBINAFINE HCL 1% CREAM,TOP Active APPLY LIGHT LY TO AFFECTED AREA TWO TIMES A DAY FOR INFECTION 90 Sep 23, 2020 [id number] Sep 24, 2019 ADRIEL HERNANDEZ [facility] UREA 20% CREAM,TOP Active APPLY LIGHTLY (20%) TO AFFECTED AREA TWO TIMES A DAY NEEDED TO PROMOTE HEALING,RUB IN UNTIL COMPLETELY ABSORBED*FOR TOPICAL USE ONLY* APPLY TO BOTH FEET DIRECTED. 90 Sep 25, 2020 [id number] Sep 26, 2019 ADRIEL HERNANDEZ [facility] Problems (Conditions): All historical and current Section Date Range: From patient's date of to the date document was create d. This section includes a list of Problems (Conditions) know n to [place] for the patient. It includes both active and inacti ve problems (conditions). The data comes from all [place] treatment facilities. Problem Status Problem Code Date of Onset Date of Resolution Comm ent(s) Provider Source Alcohol intake above recommended sensible limits Active 814109553 PADMA LONG [facility] Allergic conjunctivitis Active 242762374 [facility] Bilateral senile combined form cataracts of eyes Active 82035072536 9[facility] Bilateral tinnitus Active 2870335861482 CHASTITY JEAN [facility] Coronary arteriosclerosis Active 02873724 September 08, 2014 Entered By: PADMA LONG Comment: hx of ptca to RCA several yrs. agoSeptember 08, 2014 Entered By: PADMA LONG Comment: heart cath 09/01/14, neg. / previous stent to RCA,, [place] HATCHER, JENNEY R [facility] Diabetes mellitus Active 06505161 PAMELA RAMSEY [facility] Disorder of pancreas Active 1388096 September 08, 2014 Entered By: PADMA LONG Comment: 2.5cm low density lseion in bodyMay 2014 Entered By: PADMA LONG Comment: question of communication with pancreatic ductMa2014 Entered By: PADMA LONG Comment: favored to be cystic pancreatic cancerSeptember 08, 2014 Entered By: PADMA LONG Comment: per abdominal CT 09/01/14, [place] PADMA LONG [facility] Dry eyes Active 006487015 NEDA SHAW [facility] Gastro-esophageal reflux disease without esophagitis ( SNOMED CT 849100439) Active 895630477 ALF GUEVARA [facility] Hyperlipidemia (SNOMED CT 71628144) Active 05833561 PAMELA RAMSEY [facility] Lung mass Active 506833815 September 08, 2014 E ntered By: PADMA LONG Comment: 4.5 cm mass, post. segment right upper lobe.September 08, 2014 Entered By: PADMA LONG Comment: mild adenopathy in mediastinum and bilat. hilaMa2014 Entered By: PADMA LONG Comment: most likely related to lung cancerMa2014 Entered By: PADMA LONG Comment: per ct angio of chest with contrast 09/01/14,[place] Entered By: PADMA LONG Comment: per path report- mod. differentiated bronchogenic adenoca. 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 Active 21187938 KATHERINE MATT [facility] Obesity Active 058685074 SONG BULLOCK [facility] Obstructive sleep apnea syndrome (SNOMED CT 96969188) Active 465191 015 [facility] [facility] Pancreatic cyst Active 34527425 [facility] Papilloma of right eyelid Active 142865505917822 NEDA SHAW [facility] Polyp of colon Active 63900055 Jan 23 16 Entered By: PADMA LONG Comment: c-scope 01/17/16, multiple benign colonic polypsMar 2017 Entered By: PADMA LONG Comment: c-scope,06/25/17,[facility], three benign polyps- sigmoid colon, transverse colon,cecum. see path report cprs [facility] Pulmonary emphysema Active 03351220 0 BRIANA LESLYE [facility] Sensorineural hearing loss, bilateral Active 475005769 CHASTITY JEAN [facility] Snoring Active 69900389 SONG BULLOCK [facility] Type 2 diabetes mellitus without complication Active 404075332 NEDA SHAW [facility] Environmental Allergies (ICD-9-CM 477.9) Inactive 477.9 Dec 18, 2017 PADMA LONG [facility] External hemorrhoids without mention of complication (ICD-9- CM 455.3) Inactive 455.3 Dec 18, 2017 [facility] Impotence of organic origin (ICD-9-CM 607.84) Inactive 607.84 Dec 18, 2017 [facility] Screening for Lipoid disorders (ICD-9-CM V77.91) Inactive V77.91 Jan 18, 2007 PADMA LONG [facility] Stye * (ICD-9-CM 373.11) Inactive 373.11 Dec 18, 201 8 Jan 18, 2007 Entered By: PADMA LONG Comment: bilat lower lids, chronic/recurrent PADMA LONG [facility] Tobacco Use Disorder, Continuous Inactive 305.1 Dec 18, 2017 Jan 18, 2007 Entered By: PADMA LNOG Comment: one ppd PADMA LONG [facility] Radiology Reports: +/- 30 days of [...] the Encounter. The data comes from all [facility] facilities. Date/Time Pathology Report Provider Source Apr [...] 11:11) Microscopic examination is performed. DIAGNOSIS: Specimen: [id number] Spec Type: SURGICAL Abdulkadir: 04/03/19 Rec: 04/03/19-1241 PATHOLOGIC DIAGNOSIS Skin lesion, right upper cheek, biopsy: 1. Seborrheic keratosis, not involving resection margins. 2. Solar elastosis. Skin lesion, right lower mid margin, biopsy: 1. Seborrheic keratosis, with tumor at tissue edge/margin, but with benign features. LL COPIES TO: KATHERINE MATT [facility] PATHOLOGIST CODES: 92218/2 at 1235 The gross and microscopic examinations and interpretation were performed at [facility] Department of Pathology, [address] [place] [address]. Slides and paraffin blocks are on file at [facility]. =--=--=--=--=--=--=--=--=--=--=--=--=--=--=--=--=--=--=--=--=--=--=--=--=--=-- Performing Laboratory: Surgical Pathology Report Performed By: [facility] [CLIA# [id number]] [address] [place] [address] Encounter Notes: All associated encounter notes This section contains the clinical notes associated to the Encounter. Date/Time Encounter Note(s) Provider Source Mar 21, 2019 07:13 AM RESPIRATORY THERAPY FLOWSHEE T: LOCAL TITLE: [facility]-RESPIRATORY THERAPY. STANDARD TITLE: RESPIRATORY THERAPY FLOWSHEET DATE OF NOTE: MAR 21, 2019@07:13 ENTRY DATE: MAR 21, 2019@07:14:03 AUTHOR: KARI DUPREE COSIGNER: SONG BULLOCK URGENCY: STATUS: COMPLETED This appointment was done via TeleMed at [facility]. Consent for this TeleMed encounter was given by . Additional attendees, if any, were documented. Remotely accessed pt's data today and connected with him at the [facility]. This enounter will be for his annual with the sleep clinic. He reports that he is having some daytime sleepiness, but no issues to report with use of the cpap. His apnea data is WNL with 82% overall compliance. New supplies will be ordered for him today. CAN SCORE = Not available SMART CARD DOWNLOADED Date Range: 03/21/18 - 03/20/19 Days with Device Usage: 299 days Days without Device Usage: 66 days Percent of Days with Device Usage: 82% Percent of Days with Usage < 4 hours: 21% Average ahi: 1.2 Average leak: 9.7 lpm Average noc use: 4 hrs, 15 minutes CPAP pressure set and confirmed with manometer @ [id number] /gisell/ KARI DUPREE [employer] ANALYST respiratory therapist Signed: 03/21/2019 09:31 /gisell/ SONG BULLOCK STAFF PHYSICIAN/QUALITY CONTROL ASSESSOR Cosigned: 03/21/2019 15:25 KARI DUPREE [facility]
--- OUTSIDE RECORDS SUMMARY | 2019-11-11 02:21 | XMS REPORT | Encounter Summary ---
Author Author Department of [facility] HERBERTH kline Organization Department of [facility] Affai Address [address] [place] [address] Phone Unavailable Care Team Providers Care Glue Bone Crusher Name Role Phone MARYADRIEL PCP Unavailable Insurance Providers: All historical and current No Data Provided for This Section Selected Encounter This section includes the information on record at [place] for the Encounter. Date/Time Encounter Type Encounter Description Reason Provider Source Mar 19, 2019 09:17 AM Outpatient Encounter OPHTHALMOLOGY ICD-1 0-CM Z71.89 Other specified counseling with Provider Comments: Other specified Counseling NÉSTOR ZARATE [facility] IHE Encounter Template Text not used by [place] Assessments - Encounter Diagnoses This section includes the primary and secondary diag noses documented for the Encounter. Date/Time Primary/Secondary Diagnosis Diagnosis Name Provider Source Mar 19, 2019 09:18 AM PRIMARY Other specified counseling NÉSTOR SMITH [facility] Plan of Treatment: Future Appointments (+ [...] appointme nts. The data comes from all [facility]. Appointment Date/Time Appointment Type Appointment Facili ty Name Mar 21, 2019 09:15 AM AMBULATORY - NONE [facility] Mar 21, 2019 09:30 AM AMBULATORY - MEDICINE [facility] Mar 21, 2019 09:31 AM AMBULATORY - MEDICINE [facility] Mar 21, 2019 10:00 AM AMBULATORY - MEDICINE [facility] Mar 21, 2019 10:01 AM AMBULATORY - MEDICINE ARTUR [facility]AS [facility] Mar 26, 2019 10:00 AM [facility] NONE [facility] Apr 03, 2019 10:00 AM AMBULATORY - SURGERY [facility] Apr 14, 2019 10:00 AM AMBULATORY - SURGERY [facility] Apr 28, 2019 11:00 AM AMBULATORY - NONE ARTUR BLAS [facility] Jun 25, 2019 11:30 AM AMBULATORY - NONE [facility] Jun 25, 2019 01:15 PM AMBULATORY - MEDICINE ARTUR BLAS [facility] Jul 23, 2019 11:00 AM AMBULATORY - NONE [facility] Jul 25, 2019 08:00 AM AMBULATORY - NONE [facility] Aug 07, 2019 10:30 AM AMBULATORY - MEDICINE [facility]UR BL[facility] Active, Pending, and Scheduled Orders This section [...] the Encounter. The data comes from all [facility]. Test Date/Time Test Type Test Details Facility Name Apr 01, 2019 10:33 AM Consult Order [id number] Cons Hogshead Inspector's Choice [facility] Surgical Procedures: All associated to [...] Comment Mar 21, 2019 08:55 AM [facility] HEMOGLOBIN A1C Specimen Type: BLOOD No [...] Comment Facility Jun 26, 2018 02:13 PM [place]-TOBAC[place] 15 YRS OR MORE PORSHA BLAS [facility] Tobacco Use History This section includes a history of the smoking, or tobacco -related health factors, that were collected on or before the date of the Encoun ter. The data comes from the [place] facility where the Encounter took place. Date/Time Smoking Status/Tobacco Use Comment [facility] Jun 26, 2018 02:13 PM [place] 15 YRS OR MORE [facility] Jun 27, 2017 01:39 PM NON-TOBACCO [...] the patient. The data comes from a [facility] treatment facilities. It does not list Allergies/ADRs that were removed or entered in error. Some allergies/ADRs may be reported in t Immunization section. Allergen Event Date Event Type Reaction(s) Severity Source [place] September 08, 2014 Propensity to adverse reactions to drug (diso rder) [facility] [place] September 08, 2014 Propensity to adverse reactions to drug (diso rder) [facility] Medications: VA dispensed (-15 months) and Non-VA Documented (Obtained Outside V A) Section Date Range: 1) prescriptions processed by a [facility] pharmacy in the last 15 m [facility], and 2) all medications recorded in the [...] TEST BLOOD GLUCOSE 50 Dec 19, 2019 [id number] September 04, 2019 PAMELA RAMSEY ACCU-CHEK CHARLES PLUS (GLUCOSE) TEST STRIP Discontinued USE 1 STRIP FOR TESTING TWO TIMES PER WEEK - DIRECTED TO TEST BLOOD GLUCOSE 50 Jul 25, 2019 [id number] Nov 12, 2018 PAMELA RAMSEY ALBUTEROL SO4 90MCG/ACTUAT (CFC-F) INHL,ORAL,6.7GM Active INHALE 2 PUFFS BY ORAL INHALATION EVERY 4 HOURS NEEDED FOR BREATHING. SHAKE WELL. RINSE MOUTHPIECE FREQUENTLY TO PREVENT CLOGGING. USE NEEDED FOR SHORTNESS OF AIR/WHEEZING FOR BREATHING. SHAKE WELL. RINSE MOUTHPIECE FREQUENTLY TO PREVENT CLOGGING. USE NEEDED FOR SHORTNESS OF AIR/WHEEZING 1 Dec 19, 2019 [id number] September 04, 2019 PAMELA RAMSEY ALCOHOL PREP PAD Active USE 1 PAD ON SKIN BIW TO CLEAN AND DISINFECT THE SKIN 200 Sep 29, 2020 [id number] Sep 30, 2019 MAURICIO RANKIN [facility] ALCOHOL PREP PAD Discontinued USE 1 PAD ON SKIN BI W TO CLEAN AND DISINFECT THE SKIN 200 Dec 19, 2019 [id number] Jun 06, 2019 PAMELA RAMSEY CBGUILLERMO ALCOHOL PREP PAD Discontinued USE 1 PAD ON SKIN BI W TO CLEAN AND DISINFECT THE SKIN 200 Jul 25, 2019 [id number] Nov 12, 2018 PAMELA RAMSEY ASPIRIN 25MG/DIPYRIDAMOLE 200MG CAP,SA Active T CHAPIN 1 CAPSULE BY MOUTH TWO TIMES A DAY - SWALLOW WHOLE. DO NOT CRUSH OR CHEW. FOR RECURRENT TIA/STROKE 180 Dec 19, 2019 [id number] Dec 20, 2018 PAMELA RAMSEY ASPIRIN 25MG/DIPYRIDAMOLE 200MG CAP,SA Discontinued T CHAPIN 1 CAPSULE BY MOUTH TWO TIMES A DAY - SWALLOW WHOLE. DO NOT CRUSH OR CHEW. FOR RECURRENT TIA/STROKE 180 Feb 06, 2019 [id number] Sep 28, 2018 ZACHARY GRECO [facility] ASPIRIN 81MG TAB,EC Non- VA TAKE ONE TABLET BY MOUTH ONCE A DAY Non-VA Documented by: PADMA LONG nted at: [facility] ATORVASTATIN CA 80MG TAB Active TAKE ONE TABLET BY MOUTH AT BEDTIME FOR CHOLESTEROL - REPORT ANY UNEXPLAINED MUSCLE PAIN/WEAKNESS TO YOUR PROVIDER 90 Dec 19, 2019 [id number] September 04, 2019 PAMELA RAMSEY ATORVASTATIN CA 80MG TAB Discontinued TAKE ONE TABLET BY MOUTH AT BEDTIME FOR CHOLESTEROL - REPORT ANY UNEXPLAINED MUSCLE PAIN/WEAKNESS TO YOUR PROVIDER 90 Dec 20, 2018 [id number] Nov 12, 2018 BRAULIO,PAMELA [facility] BUDESONIDE 160MCG/FORMOTEROL FUM 4.5MCG/SPRAY INHL,ORAL,10.2 GM Active INHALE 2 PUFFS BY MOUTH TWO TIMES A DAY FOR BREATHING. SHAKE WELL. RINSE MOUTH AND SPIT AFTER EACH USE. 3 Apr 24, 2020 [id number] August 22, 2019 LISSA OATES [facility] CALCIUM/VITAMIN D TAB No n-VA TAKE BY MOUTH ONCE A DAY Non-V A Documented by: PADMA LONG nted at: [facility] CARBOXYMETHYLCELLULOSE NA 0.5% SOLN,OPH Active INSTILL ONE DROP IN BOTH EYES FOUR TIMES A DAY FOR DRY EYES Feb 01, 2020 [id number] September 03 0 NEDA SHAW [facility] DICLOFENAC NA 1% GEL,TOP Discontinued APPLY 2 GRAMS A FFECTED AREA TWO TIMES A DAY NEEDED FOR PAIN AND INFLAMMATION. DO NOT EXCEED 16GM DAILY TO ANY AFFECTED JOINT OF LOWER EXTREMITIES. DO NOT EXCEED 8GM DAILY TO ANY AFFECTED JOINT OF UPPER EXTREMITES. DO NOT EXCEED TOTAL DOSE OF 32GM DAILY FOR ALL JOINTS. 100 Oct 31, 2018 [id number] Oct 06, 2018 A[facility]ELI [facility]RICK [facility] DICLOFENAC NA 1% GEL,TOP APPLY 2 GRAMS A FFECTED AREA TWO TIMES A DAY NEEDED FOR PAIN AND INFLAMMATION. DO NOT EXCEED 16GM DAILY TO ANY AFFECTED JOINT OF LOWER EXTREMITIES. DO NOT EXCEED 8GM DAILY TO ANY AFFECTED JOINT OF UPPER EXTREMITES. DO NOT EXCEED TOTAL DOSE OF 32GM DAILY FOR ALL JOINTS. 100 Jan 17, 2019 [id number] Dec 20, 2018 PAMELA RAMSEY FLUTICASONE PROPIONATE 50MCG/SPRAY SOLN,NASAL,16GM Active INSTILL 1 SPRAY IN EACH NOSTRIL ONCE A DAY SHAKE GENTLY BEFORE USE! - MUST BE USED DIRECTED FOR 3 WEEKS TO PROVIDE BENEFIT. * NO EARLY REFILLS * 1UNIT = 30DAYS AT 4 PF/DAY OR 60DAYS AT 2PF/DAY 2 Dec 19, 2019 [id number] August 26, 2019 PAMELA RAMSEY KETOTIFEN 0.025% SOLN,OPH Active INSTILL 1 DROP IN BOTH EYES TWO TIMES A DAY FOR RELIEF OF ALLERGY SYMPTOMS IN EYE(S) Feb 01, 2020 [id number] September 04, 2019 COLINNEDA [facility] LANCET,SOFTCLIX Active USE LANCET BIW FOR TESTING BL OOD GLUCOSE DIRECTED 100 Sep 29, 2020 [id number] Sep 30, 2019 MAURICIO RANKIN [facility] LANCET,SOFTCLIX Discontinued USE LANCET BIW FO R TESTING BLOOD GLUCOSE DIRECTED 100 Dec 19, 2019 [id number] Jun 06, 2019 [facility]ELA [facility] LANCET,SOFTCLIX Discontinued USE LANCET BIW FO R TESTING BLOOD GLUCOSE DIRECTED 100 Jul 25, 2019 [id number] Nov 12, 2018 PAMELA RAMSEY LISINOPRIL 40MG TAB Non- [place] TAKE ONE-HALF TABLET BY MOUTH EVERY MORNING Non-VA Documented by: PAMELA RAMSEY nted at: [facility] LORATADINE/PSEUDOEPHEDRINE TAB,SA Non-VA TAKE BY MOUTH No n-VA Documented by: JUAN LANG nted at: ART[facility] MAGNESIUM OXIDE 250MG TAB Non-VA TAKE [...] ACID (REPLACES ACIPHEX) 180 Dec 19, 2019 [id number] August 26, 2019 PAMELA RAMSEY POTASSIUM GLUCONATE TAB Non-VA TAKE 595MG BY MOUTH ONCE A DAY N on-VA Documented by: PADMA LONG nted at: [facility] PRASUGREL HCL 10MG TAB N on-VA TAKE ONE TABLET BY MOUTH ONCE A DAY Non-VA Documented by: KATHERINE HARDWICK nted at: [facility] PREGABALIN 150MG CAP,ORAL Non-VA TAKE 1 [...] ANAYELI KIRKPATRICK Docume nted at: [facility] TERBINAFINE HCL 1% CREAM,TOP Active APPLY LIGHT LY TO AFFECTED AREA TWO TIMES A DAY FOR INFECTION 90 Sep 23, 2020 [id number] Sep 24, 2019 ADRIEL HERNANDEZ UREA 20% CREAM,TOP Active APPLY LIGHTLY (20%) TO AFFECTED AREA TWO TIMES A DAY NEEDED TO PROMOTE HEALING,RUB IN UNTIL COMPLETELY ABSORBED*FOR TOPICAL USE ONLY* APPLY TO BOTH FEET DIRECTED. 90 Sep 25, 2020 [id number] Sep 26, 2019 ADRIEL HERNANDEZ Problems (Conditions): [...] Alcohol intake above recommended sensible limits Active 119994017 PADMA LONG [facility] Allergic conjunctivitis Active 478241322 SYCAMORELISSETTEA Luda [facility] Bilateral senile combined form cataracts of eyes Active 22193915921 9108 [facility] Bilateral tinnitus Active 6381991585080 CHASTITY JEAN [facility] Coronary arteriosclerosis Active 39541264 September 08, 2014 Entered By: PADMA LONG Comment: hx of ptca to RCA several yrs. 2014 Entered By: PADMA LONG Comment: heart cath 09/01/14, neg. 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 segment right upper lobe.September 08, 2014 Entered By: PADMA LONG Comment: mild adenopathy in mediastinum and bilat. hilaMay 2014 Entered By: PADMA LONG Comment: most likely related to lung cancerMay 2014 Entered By: PADMA LONG Comment: per ct angio of chest with contrast 09/01/14,[place] Entered By: PADMA LONG Comment: per path report- mod. differentiated bronchogenic adenoca. 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 Active 44589501 KATHERINE HARDWICK [facility] Obesity Active 742820211 [facility] Obstructive sleep apnea syndrome (SNOMED CT 75527371) Active 293195 015 PHILIPPE DOUGLASS [facility] Pancreatic cyst Active 48604962 JAYLENE GUEVARA [facility] Papilloma of right eyelid Active 452831181005495 NEDA SHAW [facility] Polyp of colon Active 41806368 Jan 23 16 Entered By: PADMA LONG Comment: c-scope 01/17/16, multiple benign colonic polypsMar 2017 Entered By: PADMA LONG Comment: c-scope,06/25/17,[facility], three benign polyps- sigmoid colon, transverse colon,cecum. see path report cprs [facility] Pulmonary emphysema Active 82174741 0 BRIANA LESLYE [facility] Sensorineural hearing loss, bilateral Active 133842646 CHASTITY JEAN Nicol [facility] Snoring Active 64445393 BULLOCK,SONG [facility] Type 2 diabetes mellitus without complication Active 477090926 COLINNEDA Luda [facility] Environmental Allergies (ICD-9-CM 477.9) Inactive 477.9 Dec 18, 2017 PADMA LONG [facility] External hemorrhoids without mention of complication (ICD-9- CM 455.3) Inactive 455.3 Dec 18, 2017 PADMA LONG [facility] Impotence of organic origin (ICD-9-CM 607.84) Inactive 607.84 Dec 18, 2017 PADMA LONG [facility] Screening for Lipoid disorders (ICD-9-CM V77.91) Inactive V77.91 Jan 18, 2007 [facility] Stye * (ICD-9-CM 373.11) Inactive 373.11 Dec 18, 8 Jan 18, 2007 Entered By: PADMA LONG Comment: bilat lower lids, chronic/recurrent PADMA LONG [facility] Tobacco Use Disorder, Continuous Inactive 305.1 Dec 18, 2017 Jan 18, 2007 Entered By: PADMA LONG Comment: one ppd PADMA LONG [facility] Radiology Reports: +/- 30 days of [...] the Encounter. The data comes from all [place] treatment facilities. Date/Time Pathology Report Provider Source Apr 03, 2019 11:11 AM SURGICAL PATHOLOGY REPORT : Date Spec taken: Apr 03, 2019 11:11 Pathologist:BRIGID MCGUIRE MD Date Spec rec'd: Apr 03, 2019 11:12 Resident: Date completed: Apr 07, 2019 Accession #: [id number] Submitted by: Practitioner:KATHERINE HARDWICK MD Specimen: 1.RIGHT UPPER CHEEK LOWER [...] 11:11) Microscopic examination is performed. DIAGNOSIS: Specimen: [id number] Spec Type: SURGICAL Abdulkadir: 04/03/19 Rec: 04/03/19-1241 PATHOLOGIC DIAGNOSIS Skin lesion, right upper cheek, biopsy: 1. Seborrheic keratosis, not involving resection margins. 2. Solar elastosis. Skin lesion, right lower mid margin, biopsy: 1. Seborrheic keratosis, with tumor at tissue edge/margin, but with benign features. LL COPIES TO: KATHERINE HARDWICK [facility] PATHOLOGIST CODES: 76494/2 at 1235 The gross and microscopic examinations and interpretation were performed at [facility] Department of Pathology, [address] [place] [id number]. Slides and paraffin blocks are on file at [facility]. =--=--=--=--=--=--=--=--=--=--=--=--=--=--=--=--=--=--=--=--=--=--=--=--=--=-- Performing Laboratory: Surgical Pathology Report Performed By: [facility] [CLIA# [id number]] [address] [place] [id number] [address] [facility] [place] [address] Encounter Notes: All associated encounter notes This section contains the clinical notes associated to the Encounter. Date/Time Encounter Note(s) Provider Source Mar 19, 2019 09:18 AM PROCEDURE NOTE: [facility] STANDARD TITLE: PROCEDURE NOTE DATE OF NOTE: MAR 19, 2019@09:18 ENTRY DATE: MAR 19, 2019@09:19:02 AUTHOR: NÉSTOR ZARATE EXP COSIGNER: URGENCY: STATUS: COMPLETED [facility] [address], [address] This letter contains your preoperative instructions. You are scheduled for your procedure with Dr. Hardwick. Your Procedure Date is: March @ 1000 Your Arrival time is: 0930 *You are to arrive at the [facility] on the 2nd floor of Building [address] at the requested time above. *Your procedure time is subject to change the day of the procedure. A map is included with this letter to help guide you to the location. Please note, this is not the same location as your specialty care appointment, please refer to the map. *Your surgery will be done using local anesthetic only. *Please take all of your medications the morning of surgery. *Please do not wear jewelry or bring valuables to the hospital with you. If you have any concerns or questions please call the eye clinic @ [phone]. Sincerely, Néstor Zarate RN [facility] [phone] [facility]gisell/ NÉSTOR ZARATE RN Signed: 03/19/2019 09:19 NÉSTOR ZARATE [facility] Mar 19, 2019 09:17 AM PROCEDURE NOTE: LOCAL TITLE: CO-AMBULATORY PROCEDURE SCHEDULING STANDARD TITLE: PROCEDURE NOTE DATE OF NOTE: MAR 19, 2019@09:17 ENTRY DATE: MAR 19, 2019@09:17:56 AUTHOR: NÉSTOR ZARATE EXP COSIGNER: URGENCY: STATUS: COMPLETED Patient and provider agreed to procedure date as scheduled below: Surgery: shave biopsy papilloma RLL margin and Excisional biopsy right upper cheek/eyelid Surgeon: Dr. Hardwick Surgery Date: 04/03/19 @ 1000 Arrival Time: 0930 in the [facility] Room 205, 2nd floor [address] Appt. and surgery dates and times were confirmed with patient by Dr. Hardwick. Letter mailed. Active Outpatient Medications (including Supplies): Outpatient Medications [...] new medications were discussed with the patient. Néstor Zarate RN [facility] [phone]. [phone] Artur CARRASQUILLO /gisell/ NÉSTOR ZARATE RN Signed: 03/19/2019 09:18 NÉSTOR ZARATE [facility]
--- OUTSIDE RECORDS SUMMARY | 2019-11-11 02:21 | XMS REPORT | Encounter Summary ---
Author Author [facility] Organization Department of [facility] Address [address] [place] [address] Phone Unavailable Care Team Providers Care Card Grinder Name Role Phone ADRIEL HERNANDEZ PCP Unavailable Insurance Providers: All historical and current No Data Provided for This Section Selected Encounter This section includes the information on record at [place] for the Encounter. Date/Time Encounter Type Encounter Description Reason Provider Source Mar 21, 2019 10:00 AM OFFICE/OUTPATIENT VISIT EST SLEEP MEDICINE ICD-10-CM G47.33 Obstructive sleep apnea (adult) (pediatric) with Provider Comments: Obstructive sleep apnea syndrome (SNOMED CT 55730202) PHILIPPE DOUGLASS [facility] IHE Encounter Template Text not used by [facility] Assessments - Encounter Diagnoses This section includes the primary and secondary diag noses documented for the Encounter. Date/Time Primary/Secondary Diagnosis Diagnosis Name Provider Source Mar 21, 2019 10:02 AM PRIMARY Obstructive sleep apnea (a dult) (pediatric) [facility] Plan of Treatment: Future Appointments (+ 6 months) and Future Tests (+/- 45 day s) The Plan of Treatment section includes future care activities for the patient fr om all [place] treatment facilities. This section includes future appointments and fu ture orders which are active, pending or scheduled. Future Appointments This section includes appointments that were scheduled t o occur 6 months from the date of the Encounter, up to a maximum of 20 appointme nts. The data comes from all [facility]. Appointment Date/Time Appointment Type Appointment Facili ty Name Mar 26, 2019 10:00 AM AMBULATORY - NONE ARTUR BLAS [facility] Apr 03, 2019 10:00 AM AMBULATORY - SURGERY ARTUR BLAS [facility] Apr 14, 2019 10:00 AM AMBULATORY - SURGERY [facility] Apr 28, 2019 11:00 AM AMBULATORY - NONE ARTUR BLAS [facility] Jun 25, 2019 11:30 AM AMBULATORY - NONE ARTUR BLAS [facility] Jun 25, 2019 01:15 PM AMBULATORY - MEDICINE ARTUR Shu BLAS V [facility] Jul 23, 2019 11:00 AM AMBULATORY - NONE ARTUR BLAS [facility] Jul 25, 2019 08:00 AM AMBULATORY - NONE ARTUR BLAS [facility] Aug 07, 2019 10:30 AM AMBULATORY - MEDICINE ARTUR Shu LEVIMila Arora [facility] Active, Pending, and Scheduled Orders This section [...] the Encounter. The data comes from all [facility]. Test Date/Time Test Type Test Details Facility Name Apr 01, 2019 10:33 AM Consult Order [facility] [id number] Cons Mold Machine Operator's Choice [facility] Surgical Procedures: All associated to the encounter No Data Provided for This Section Lab Results: +/- 30 days of the encounter This section includes the Chemistry and Hematology Lab R esults on record with [place] for the patient. Radiology Reports and Pathology Report s are provided separately, in subsequent sections. Lab Results This section contains the Chemistry/Hematology Results usha t were resulted 30 days before or 30 days after the date of the Encounter. Date/Time Source Result Type Result - Unit Interpretation Reference Range Comment Mar 21, 2019 08:55 AM [facility] HEMOGLOBIN A1C Specimen Type: BLOOD [...] Encoun ter. The data comes from the [place] facility where the Encounter took place. Date/Time Smoking Status/Tobacco Use Comment [facility] it Nov 23, 2017 09:51 [...] patient. The data comes from a ll [place] treatment facilities. It does not list Allergies/ADRs that were removed or entered in error. Some allergies/ADRs may be reported in t he Immunization section. Allergen Event Date Event Type Reaction(s) Severity Source BRILINTA September 08, 2014 Propensity to adverse reactions to drug (diso rder) [facility] 15 PLAVIX September 08, 2014 Propensity to adverse reactions to drug (diso rder) [facility], [facility] 15 Medications: VA dispensed (-15 months) and Non-VA Documented (Obtained Outside V A) Section Date Range: 1) prescriptions processed by a VA pharmacy in the last 15 m [facility], and 2) all medications recorded in the [place] medical record as "non-VA medic ations". Pharmacy terms refer to VA pharmacy's work on prescriptions. VA patient s are advised to take their medications as instructed by their health care team. The data comes from all [place] treatment facilities. Glossary of Pharmacy Terms:Active = A prescription that can be filled at the local [place] pharmacy.Active: On Hold = An active prescription that will not be filled until pharmacy resolves the issue.Active: Susp = An active prescription that is not scheduled to be filled yet.Clinic Order = A medication received during a visit to a [place] clinic or emergency department (currently not available).Discontinued [...] may be a prescription from either the [place] or other providers that was filled outside [...] TEST BLOOD GLUCOSE 50 Dec 19, 2019 [id number] September 04, 2019 PAMELA RAMSEY ACCU-CHEK CHARLES PLUS (GLUCOSE) TEST STRIP Discontinued USE 1 STRIP FOR TESTING TWO TIMES PER WEEK - DIRECTED TO TEST BLOOD GLUCOSE 50 Jul 25, 2019 [id number] Nov 12, 2018 PAMELA RAMSEY ALBUTEROL SO4 90MCG/ACTUAT (CFC-F) INHL,ORAL,6.7GM Active INHALE 2 PUFFS BY ORAL INHALATION EVERY 4 HOURS NEEDED FOR BREATHING. SHAKE WELL. RINSE MOUTHPIECE FREQUENTLY TO PREVENT CLOGGING. USE NEEDED FOR SHORTNESS OF AIR/WHEEZING FOR BREATHING. SHAKE WELL. RINSE MOUTHPIECE FREQUENTLY TO PREVENT CLOGGING. USE NEEDED FOR SHORTNESS OF AIR/WHEEZING 1 Dec 19, 2019 [id number] September 04, 2019 PAMELA RAMSEY ALCOHOL PREP PAD Active USE 1 PAD ON SKIN BIW TO CLEAN AND DISINFECT THE SKIN 200 Sep 29, 2020 [id number] Sep 30, 2019 MAURICIO RANKIN [facility] ALCOHOL PREP PAD Discontinued USE 1 PAD ON SKIN BI W TO CLEAN AND DISINFECT THE SKIN 200 Dec 19, 2019 [id number] Jun 06, 2019 PAMELA RAMSEY [facility] ALCOHOL PREP PAD Discontinued USE 1 PAD ON SKIN BI W TO CLEAN AND DISINFECT THE SKIN 200 Jul 25, 2019 [id number] Nov 12, 2018 PAMELA RAMSEY [facility] ASPIRIN 25MG/DIPYRIDAMOLE 200MG CAP,SA Active T CHAPIN 1 CAPSULE BY MOUTH TWO TIMES A DAY - SWALLOW WHOLE. DO NOT CRUSH OR CHEW. FOR RECURRENT TIA/STROKE 180 Dec 19, 2019 [id number] Dec 20, 2018 PAMELA RAMSEY [facility] ASPIRIN 25MG/DIPYRIDAMOLE 200MG CAP,SA Discontinued T CHAPIN 1 CAPSULE BY MOUTH TWO TIMES A DAY - SWALLOW WHOLE. DO NOT CRUSH OR CHEW. FOR RECURRENT TIA/STROKE 180 Feb 06, 2019 [id number] Sep 28, 2018 ZACHARY GRECO V [facility] ASPIRIN 81MG TAB,EC Non- VA TAKE ONE TABLET BY MOUTH ONCE A DAY Non-VA Documented by: PADMA LONG nted at: [facility] ATORVASTATIN CA 80MG TAB Active TAKE ONE TABLET BY MOUTH AT BEDTIME FOR CHOLESTEROL - REPORT ANY UNEXPLAINED MUSCLE PAIN/WEAKNESS TO YOUR PROVIDER 90 Dec 19, 2019 [id number] September 04, 2019 PAMELA RAMSEY ATORVASTATIN CA 80MG TAB Discontinued TAKE ONE TABLET BY MOUTH AT BEDTIME FOR CHOLESTEROL - REPORT ANY UNEXPLAINED MUSCLE PAIN/WEAKNESS TO YOUR PROVIDER 90 Dec 20, 2018 [id number] Nov 12, 2018 PAMELA RAMSEY BUDESONIDE 160MCG/FORMOTEROL FUM 4.5MCG/SPRAY INHL,ORAL,10.2 GM Active INHALE 2 PUFFS BY MOUTH TWO TIMES A DAY FOR BREATHING. SHAKE WELL. RINSE MOUTH AND SPIT AFTER EACH USE. 3 Apr 24, 2020 [id number] August 22, 2019 LISSA OATES [facility] CALCIUM/VITAMIN D TAB No n-VA TAKE BY MOUTH ONCE A DAY Non-V A Documented by: PADMA LONG nted at: [facility] CARBOXYMETHYLCELLULOSE NA 0.5% SOLN,OPH Active INSTILL ONE DROP IN BOTH EYES FOUR TIMES A DAY FOR DRY EYES 15 Feb 01, 2020 [id number] September 03 0 [facility] DICLOFENAC NA 1% GEL,TOP Discontinued APPLY 2 GRAMS A FFECTED AREA TWO TIMES A DAY NEEDED FOR PAIN AND INFLAMMATION. DO NOT EXCEED 16GM DAILY TO ANY AFFECTED JOINT OF LOWER EXTREMITIES. DO NOT EXCEED 8GM DAILY TO ANY AFFECTED JOINT OF UPPER EXTREMITES. DO NOT EXCEED TOTAL DOSE OF 32GM DAILY FOR ALL JOINTS. 100 Oct 31, 2018 [id number] Oct 06, 2018 ANAYELI KIRKPATRICK [facility] DICLOFENAC NA 1% GEL,TOP APPLY 2 GRAMS A FFECTED AREA TWO TIMES A DAY NEEDED FOR PAIN AND INFLAMMATION. DO NOT EXCEED 16GM DAILY TO ANY AFFECTED JOINT OF LOWER EXTREMITIES. DO NOT EXCEED 8GM DAILY TO ANY AFFECTED JOINT OF UPPER EXTREMITES. DO NOT EXCEED TOTAL DOSE OF 32GM DAILY FOR ALL JOINTS. 100 Jan 17, 2019 [id number] Dec 20, 2018 PAMELA RAMSEY [facility] FLUTICASONE PROPIONATE 50MCG/SPRAY SOLN,NASAL,16GM Active INSTILL 1 SPRAY IN EACH NOSTRIL ONCE A DAY SHAKE GENTLY BEFORE USE! - MUST BE USED DIRECTED FOR 3 WEEKS TO PROVIDE BENEFIT. * NO EARLY REFILLS * 1UNIT = 30DAYS AT 4 PF/DAY OR 60DAYS AT 2PF/DAY 2 Dec 19, 2019 [id number] August 26, 2019 PAMELA RAMSEY KETOTIFEN 0.025% SOLN,OPH Active INSTILL 1 DROP IN BOTH EYES TWO TIMES A DAY FOR RELIEF OF ALLERGY SYMPTOMS IN EYE(S) Feb 01, 2020 [id number] September 04, 2019 [facility] LANCET,SOFTCLIX Active USE LANCET BIW FOR TESTING BL OOD GLUCOSE DIRECTED 100 Sep 29, 2020 [id number] Sep 30, 2019 MAURICIO RANKIN [facility] LANCET,SOFTCLIX Discontinued USE LANCET BIW FO R TESTING BLOOD GLUCOSE DIRECTED 100 Dec 19, 2019 [id number] Jun 06, 2019 PAMELA RAMSEY LANCET,SOFTCLIX Discontinued USE LANCET BIW FO R TESTING BLOOD GLUCOSE DIRECTED 100 Jul 25, 2019 [id number] Nov 12, 2018 PAMELA RAMSEY LISINOPRIL 40MG TAB Non- VA TAKE ONE-HALF TABLET BY MOUTH EVERY MORNING Non-VA Documented by: PAMELA RAMSEY nted at: [facility] LORATADINE/PSEUDOEPHEDRINE TAB,SA Non-VA TAKE BY MOUTH No n-VA Documented by: JUAN LANG nted at: [facility] [place] [facility] MAGNESIUM OXIDE 250MG TAB Non-VA TAKE 125 [...] ACID (REPLACES ACIPHEX) 180 Dec 19, 2019 [id number] August 26, 2019 PAMELA RAMSEY POTASSIUM GLUCONATE TAB Non-VA TAKE 595MG BY MOUTH ONCE A DAY N on-VA Documented by: PADMA LONG nted at: [facility] PRASUGREL HCL 10MG TAB N on-VA TAKE ONE TABLET BY MOUTH ONCE A DAY Non-VA Documented by: KATHERINE MATT nted at: [facility] PREGABALIN 150MG [...] Non-VA Documented by: ANAYELI KIRKPATRICK nted at: [facility] [place] [facility] TERBINAFINE HCL 1% CREAM,TOP Active APPLY LIGHT LY TO AFFECTED AREA TWO TIMES A DAY FOR INFECTION 90 Sep 23, 2020 [id number] Sep 24, 2019 ADRIEL HERNANDEZ [facility] UREA 20% CREAM,TOP Active APPLY LIGHTLY (20%) TO AFFECTED AREA TWO TIMES A DAY NEEDED TO PROMOTE HEALING,RUB IN UNTIL COMPLETELY ABSORBED*FOR TOPICAL USE ONLY* APPLY TO BOTH FEET DIRECTED. 90 Sep 25, 2020 [id number] Sep 26, 2019 ADRIEL HERNANDEZ [facility] Problems (Conditions): All historical and current Section Date Range: From patient's date of to the date document was create d. This section includes a list of Problems (Conditions) know n to [place] for the patient. It includes both active and inacti ve problems (conditions). The data comes from all [place] treatment facilities. Problem Status Problem Code Date of Onset Date of Resolution Comm ent(s) Provider Source Alcohol intake above recommended sensible limits Active 336059011 PADMA LONG [facility] Allergic conjunctivitis Active 226787061 LIN[facility]EDA [facility] Bilateral senile combined form cataracts of eyes Active 43469852220 9108 [facility] Luda [facility] Bilateral tinnitus Active 3070179257524 CHASTITY JEAN [facility] Coronary arteriosclerosis Active 33304389 September 08, 2014 Entered By: PADMA LONG Comment: hx of ptca to RCA several yrs. agoSeptember 08, 2014 Entered By: PADMA LONG Comment: heart cath 09/01/14, neg. / previous stent to RCA,, [place] HATCHER, JENNEY R [facility]ERT [facility] Diabetes mellitus Active 62207290 PAMELA RAMSEY [facility] Disorder of pancreas Active 4419957 September 08, 2014 Entered By: PADMA LONG Comment: 2.5cm low density lseion in bodyMay 2014 Entered By: PADMA LONG Comment: question of communication with pancreatic ductMa2014 Entered By: PADMA LONG Comment: favored to be cystic pancreatic cancerSeptember 08, 2014 Entered By: PADMA LONG Comment: per abdominal CT 09/01/14, via [place] PADMA LONG [facility] Dry eyes Active 844184609 NEDA SHAW [facility] Gastro-esophageal reflux disease without esophagitis ( SNOMED CT 564398431) Active 843604489 ALF GUEVARA [facility] Hyperlipidemia (SNOMED CT 78901417) Active 80183410 PAMELA RAMSEY [facility] Lung mass Active 576861178 September 08, 2014 E ntered By: PADMA LONG Comment: 4.5 cm mass, post. segment right upper lobe.September 08, 2014 Entered By: PADMA LONG Comment: mild adenopathy in mediastinum and bilat. hilaMa2014 Entered By: PADMA LONG Comment: most likely related to lung cancerMa2014 Entered By: PADMA LONG Comment: per ct angio of chest with contrast 09/01/14,[place] Entered By: PADMA LONG Comment: per path report- mod. differentiated bronchogenic adenoca. PADMA LONG 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 Pancreatic cyst Active 02869928 [facility] Papilloma of right eyelid Active [id number] [facility] Polyp of colon Active 18018307 Jan 23 16 Entered By: PADMA LONG Comment: c-scope 01/17/16, multiple benign colonic polypsMar 2017 Entered By: PADMA LONG Comment: c-scope,06/25/17,al-[facility], three benign polyps- sigmoid colon, transverse colon,cecum. see path report cprs SHARRON TORRES [facility] Pulmonary emphysema Active 97131346 0 BRIANA GAVIN Shu [facility] Sensorineural hearing loss, bilateral Active 524346134 CHASTITY JEAN [facility] Snoring Active 85206466 [place] [facility] Type 2 diabetes mellitus without complication Active 701148086 [place] SHAW [facility] Environmental Allergies (ICD-9-CM 477.9) Inactive 477.9 Dec 18, 2017 PADMA LONG [facility] External hemorrhoids without mention of complication (ICD-9- CM 455.3) Inactive 455.3 Dec 18, 2017 [facility] Impotence of organic origin (ICD-9-CM 607.84) Inactive 607.84 Dec 18, 2017 [facility] Screening for Lipoid disorders (ICD-9-CM V77.91) Inactive V77.91 Jan 18, 2007 [facility] Stye * (ICD-9-CM 373.11) Inactive 373.11 Dec 18, 201 8 Jan 18, 2007 Entered By: PADMA LONG Comment: bilat lower lids, chronic/recurrent [facility] Tobacco Use [...] data comes from all [facility] facilities. Date/Time Pathology Report Provider Source Apr [...] lower lid margin" is a single, unoriented, mcrgath, rubbery, irregular skin excision specimen, 0.5 x 0.2 x 0.2 cm. The surgical margin of exc ision is inked black. (2A - toto on edge for Lx3) SF/sh. Microscopic Description (Date Spec taken: Apr 03, 2019 11:11) Microscopic examination is performed. DIAGNOSIS: Specimen: [id number] Spec Type: SURGICAL Abdulkadir: 04/03/19 Rec: 04/03/19-1241 PATHOLOGIC DIAGNOSIS Skin lesion, right upper cheek, biopsy: 1. Seborrheic keratosis, not involving resection margins. 2. Solar elastosis. Skin lesion, right lower mid margin, biopsy: 1. Seborrheic keratosis, with tumor at tissue edge/margin, but with benign features. LL COPIES TO: KATHERINE MATT [facility] PATHOLOGIST CODES: 72429/2 at 1235 The gross and microscopic examinations and interpretation were performed at [facility] Department of Pathology, [address] [place] [address]. Slides and paraffin blocks are on file at [facility]. =--=--=--=--=--=--=--=--=--=--=--=--=--=--=--=--=--=--=--=--=--=--=--=--=--=-- Performing Laboratory: Surgical Pathology Report Performed By: [CLIA# [id number]] [address] [place], [place] [address] [address] Encounter Notes: All associated encounter notes This section contains the clinical notes associated to the Encounter. Date/Time Encounter Note(s) Provider Source Mar 21, 2019 09:40 AM PULMONARY PROCEDURE NOTE: [facility] TITLE: PULMONARY PROCEDURE NOTE DATE OF NOTE: MAR 21, 2019@09:40 ENTRY DATE: MAR 21, 2019@09:40:43 AUTHOR: PHILIPPE DOUGLASS COSIGNER: URGENCY: STATUS: COMPLETED SLEEP CLINIC This is a 64 year old male Gary known to our [facility] sleep clinic for moderate obstructive sleep apnea, last seen in clinics on 03/21/2018. Gary requested his follow up appointment to be done via telemedicine. reports usage of his CPAP machine most nights. His normal sleep-wake cycle is from 20- 200hrs until 0400hrs. Upon awakening, he feels rested. He tries to use the machine nightly but often falls asleep without CPAP machine in place. He enjoys 4 to 5 cups of coffee, throughout the da y. He is getting his house together because his is returning home after caring for her elderly parents that . He is replacing the carpeting in his house. He denies daytime somnolence but if he stops, gets inactive, he may doze off for a short duration. He does report some drowsiness while driving long distances. If so, he pulls over and rests for awhile. Smartcard download fair compliance with 82% device usage, AHI of 1.4, averaging 4 hours and 15 minutes on machine nightly. 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 The full night study showed apnea index of 3.1, hypopnea index of 24.4, apnea hypopnea index of 27.5, respiratory disturbance index of 43/hr with a minimal O2 saturation of 74%. He was diagnosed with moderate obstructive sleep apnea and subsequently underwent a CPAP titration study, on the same night. SMART CARD DOWNLOADED Date Range: 03/21/18 - 03/20/19 Days with Device Usage: 299 days Days without Device Usage: 66 days Percent of Days with Device Usage: 82% Percent of Days with Usage < 4 hours: 21% Average ahi: 1.2 Average leak: 9.7 lpm Average noc use: 4 hrs, 15 minutes CPAP pressure set and confirmed with manometer @ 11pmk62 REVIEW OF SYSTEMS: Denies chest pain, shortness of breath, syncope, presyncope, dizziness, lower extremity edema, palpitation, fever, nausea, vomiting, diarrhea, constipation. Is currently without complaint. PHYSICAL EXAMINATION: B/P: 125/70 (12/18/2018 08:35) Weight: 225.7 lb [102.6 kg] (12/18/2018 08:34) Temperature: 98.1 F [36.7 C] (12/18/2018 08:34) Pulse: 69 (12/18/2018 08:34) Respirations: 16 (12/18/2018 08:34) BMI: 31.5 Patient is alert, oriented to person, place and time. He is answering simple questions appropriately and does not appear in distress. Medical Diagnosis: Moderate Obstructive Sleep Apnea Syndrome Plan 1. AL - Continue CPAP pressure set and confirm ed with manometer @ 10 cmh20. - Gary has contact number for respira tory therapist, if problems arise and/or additional supplies. DISPOSITION: was provided education on how to contact the Sleep Clinic and the process for ordering supplies was also discussed. Gary was discharged to home and was encouraged to contact the Sleep Clinic should further assistance be needed. Return to the sleep clinic in approximately one year or sooner, if needed. Medication Reconciliation - I have discussed active and pending medications with the patient and/or caregiver. I have made changes as appropriate. Yes Allergies reviewed, edited in CPRS as appropriate and confirmed by patient: Yes Copy given to patient upon discharge from clinic. Patient verbalizes understanding: No Changes per patient referred to prescribing physician. Physician notified via additional signer N/A All diagnostic tests, test results available and appropriate care planning were discussed in detail with the patient/family/significant other: N/A. /gisell/ PHILIPPE DOUGLASS APRN Signed: 03/21/2019 10:02 PHILIPPE DOUGLASS OC
--- OUTSIDE RECORDS SUMMARY | 2019-11-11 02:22 | XMS REPORT ---
Author [facility] Department of [facility] Address [address] [place] [address] Phone Unavailable Care Team Providers Care Customer Relations Assistant Name Role Phone ADRIEL HERNANDEZ PCP Unavailable Insurance Providers: All historical and current No Data Provided for This Section Selected Encounter This section includes the information on record at [place] for the Encounter. Date/Time Encounter Type Encounter Description Reason Provider Source Mar 10, 2019 11:15 AM Outpatient Encounter PHYSICAL THERAPY ICD- 10-CM M51.36 Other intervertebral disc degeneration, lumbar region with Provider Comments: Other Intervertebral Disc Degeneration, Lumbar Region NAGA MATAMOROS [facility] IHE Encounter Template Text not used by [place] Assessments - Encounter Diagnoses This section includes the primary and secondary diag noses documented for the Encounter. Date/Time Primary/Secondary Diagnosis Diagnosis Name Provider Source Mar 10, 2019 02:57 PM PRIMARY Other intervertebr al disc degeneration, lumbar region ISIAH UPTON [facility] Plan of Treatment: Future Appointments (+ [...] appointme nts. The data comes from all [facility]. Appointment Date/Time Appointment Type Appointment Facili ty Name Mar 21, 2019 09:15 AM AMBULATORY - NONE [facility] Mar 21, 2019 09:30 AM AMBULATORY - MEDICINE [facility] Mar 21, 2019 09:31 AM AMBULATORY - MEDICINE ARTUR BLAS [facility] Mar 21, 2019 10:00 AM AMBULATORY - MEDICINE [facility] Mar 21, 2019 10:01 AM AMBULATORY - MEDICINE [facility] BL[facility] Mar 26, 2019 10:00 AM AMBULATORY - NONE ARTUR BLAS [facility] Apr 03, 2019 10:00 AM AMBULATORY - SURGERY ARTUR BLAS [facility] Apr 14, 2019 10:00 AM AMBULATORY - SURGERY [facility] Apr 28, 2019 11:00 AM AMBULATORY - NONE [facility] BLAS [facility] Jun 25, 2019 11:30 AM AMBULATORY - NONE [facility] BL[facility] Jun 25, 2019 01:15 PM AMBULATORY - MEDICINE ARTUR BLAS [facility] Jul 23, 2019 11:00 AM AMBULATORY - NONE [facility] BL[facility] Jul 25, 2019 08:00 AM AMBULATORY - NONE [facility] Aug 07, 2019 10:30 AM AMBULATORY - MEDICINE [facility]UR BLAS [facility] Active, Pending, and Scheduled Orders [...] the Encounter. The data comes from all [facility]. Test Date/Time Test Type Test Details Facility Name Apr 01, 2019 10:33 AM Consult Order [id number] Cons Outside Residential Sales Professional's Choice [facility] Surgical Procedures: All associated to the encounter No Data Provided for This Section Lab Results: +/- 30 days of the encounter This section includes the Chemistry and Hematology Lab R esults on record with CO for the patient. Radiology Reports and Pathology [...] and tobacco- related health factors from the CO facility where the Encounter took place. Current Smoking Status This section includes the most current smoking, or tobacco -related health factor, from the CO facility where the Encounter took place. Date/Time Current Smoking Status Comment [facility] Jun 26, 2018 02:13 PM CO-TOBACCO QUIT 15 YRS OR MORE PORSHA BLAS [facility] Tobacco Use History This section includes a history of the smoking, or tobacco -related health factors, that were collected on or before the date of the Encoun ter. The data comes from the [place] facility where the Encounter took place. Date/Time Smoking Status/Tobacco Use Comment [facility] Jun 26, 2018 02:13 PM CO-TOBACCO QUIT 15 YRS OR MORE PORSHA BLAS [facility] Jun 27, 2017 01:39 PM NON-TOBACCO USER [facility] Jun 27, 2017 01:16 PM NON-TOBACCO USER [facility] Jan 06, 2015 02:07 PM NON-TOBACCO [facility] Nov 23, 2014 10:38 AM NON-TOBACCO USER [facility]ARR[facility] Oct 26, 2014 10:36 AM NON-TOBACCO USER [facility] Oct 14, 2014 11:09 AM NON-TOBACCO USER ARTUR CARRASQUILLO [facility] Advance Directives: All historical and current No Data Provided for This Section Allergies and Adverse Reactions (ADRs): All historical and current Section Date Range: From patient's date of to the date document was create d. This section includes Allergies and Adverse Reactions (ADR s) on record with VA for the patient. The data comes from a [facility] treatment facilities. It does not list Allergies/ADRs that were removed or entered in error. Some allergies/ADRs may be reported in t he Immunization section. Allergen Event Date Event Type Reaction(s) Severity Source BRIL[place] September 08, 2014 Propensity to adverse reactions to drug (diso rder) [facility] [place] September 08, 2014 Propensity to adverse reactions to drug (diso rder) [facility] Medications: VA dispensed (-15 months) and Non-VA Documented (Obtained Outside V A) Section Date Range: 1) prescriptions processed by a VA pharmacy in the last 15 m [facility], and 2) all medications recorded in the CO medical record as "non-VA medic ations". Pharmacy terms refer to VA pharmacy's work on prescriptions. VA patient s are advised to take their medications as instructed by their health care team. The data comes from all [place] treatment facilities. Glossary of Pharmacy Terms:Active = A prescription that can be filled at the local [place] pharmacy.Active: On Hold = An active prescription that will not be filled until pharmacy resolves the issue.Active: Susp = An active prescription that is not scheduled to be filled yet.Clinic Order = A medication received during a visit to a CO clinic or emergency department (currently not available).Discontinued [...] other providers that was filled outside the CO. Or, it may be an over the [...] TEST BLOOD GLUCOSE 50 Dec 19, 2019 [id number] September 04, 2019 PAMELA RAMSEY ACCU-CHEK CHARLES PLUS (GLUCOSE) TEST STRIP Discontinued USE 1 STRIP FOR TESTING TWO TIMES PER WEEK - DIRECTED TO TEST BLOOD GLUCOSE 50 Jul 25, 2019 [id number] Nov 12, 2018 PAMELA RAMSEY ALBUTEROL SO4 90MCG/ACTUAT (CFC-F) INHL,ORAL,6.7GM Active INHALE 2 PUFFS BY ORAL INHALATION EVERY 4 HOURS NEEDED FOR BREATHING. SHAKE WELL. RINSE MOUTHPIECE FREQUENTLY TO PREVENT CLOGGING. USE NEEDED FOR SHORTNESS OF AIR/WHEEZING FOR BREATHING. SHAKE WELL. RINSE MOUTHPIECE FREQUENTLY TO PREVENT CLOGGING. USE NEEDED FOR SHORTNESS OF AIR/WHEEZING 1 Dec 19, 2019 [id number] September 04, 2019 PAMELA RAMSEY [facility] ALCOHOL PREP PAD Active USE 1 PAD ON SKIN BIW TO CLEAN AND DISINFECT THE SKIN 200 Sep 29, 2020 [id number] Sep 30, 2019 CHUCHOPAMELLA FAUSTINLloyd [facility] ALCOHOL PREP PAD Discontinued USE 1 PAD ON SKIN BI W TO CLEAN AND DISINFECT THE SKIN 200 Dec 19, 2019 [id number] Jun 06, 2019 PAMELA RAMSEY CBGUILLERMO ALCOHOL PREP PAD Discontinued USE 1 PAD ON SKIN BI W TO CLEAN AND DISINFECT THE SKIN 200 Jul 25, 2019 [id number] Nov 12, 2018 PAMELA RAMSEY ASPIRIN 25MG/DIPYRIDAMOLE 200MG CAP,SA Active T CHAPIN 1 CAPSULE BY MOUTH TWO TIMES A DAY - SWALLOW WHOLE. DO NOT CRUSH OR CHEW. FOR RECURRENT TIA/STROKE 180 Dec 19, 2019 [id number] Dec 20, 2018 PAMELA RAMSEY ASPIRIN 25MG/DIPYRIDAMOLE 200MG CAP,SA Discontinued T CHAPIN 1 CAPSULE BY MOUTH TWO TIMES A DAY - SWALLOW WHOLE. DO NOT CRUSH OR CHEW. FOR RECURRENT TIA/STROKE 180 Feb 06, 2019 [id number] Sep 28, 2018 ZACHARY GRECO [facility] ASPIRIN 81MG TAB,EC Non- VA TAKE ONE TABLET BY MOUTH ONCE A DAY Non-VA Documented by: PADMA LONG nted at: [facility] ATORVASTATIN CA 80MG TAB Active TAKE ONE TABLET BY MOUTH AT BEDTIME FOR CHOLESTEROL - REPORT ANY UNEXPLAINED MUSCLE PAIN/WEAKNESS TO YOUR PROVIDER 90 Dec 19, 2019 [id number] September 04, 2019 PAMELA RAMSEY ATORVASTATIN CA 80MG TAB Discontinued TAKE ONE TABLET BY MOUTH AT BEDTIME FOR CHOLESTEROL - REPORT ANY UNEXPLAINED MUSCLE PAIN/WEAKNESS TO YOUR PROVIDER 90 Dec 20, 2018 [id number] Nov 12, 2018 PAMELA RAMSEY BUDESONIDE 160MCG/FORMOTEROL FUM 4.5MCG/SPRAY INHL,ORAL,10.2 GM Active INHALE 2 PUFFS BY MOUTH TWO TIMES A DAY FOR BREATHING. SHAKE WELL. RINSE MOUTH AND SPIT AFTER EACH USE. 3 Apr 24, 2020 [id number] August 22, 2019 LISSA OATES [facility] CALCIUM/VITAMIN D TAB No n-VA TAKE BY MOUTH ONCE A DAY Non-V A Documented by: PADMA LONG nted at: [facility] CARBOXYMETHYLCELLULOSE NA 0.5% SOLN,OPH Active INSTILL ONE DROP IN BOTH EYES FOUR TIMES A DAY FOR DRY EYES 15 Feb 01, 2020 [id number] September 03 [facility] DICLOFENAC NA 1% GEL,TOP Discontinued APPLY 2 GRAMS A FFECTED AREA TWO TIMES A DAY NEEDED FOR PAIN AND INFLAMMATION. DO NOT EXCEED 16GM DAILY TO ANY AFFECTED JOINT OF LOWER EXTREMITIES. DO NOT EXCEED 8GM DAILY TO ANY AFFECTED JOINT OF UPPER EXTREMITES. DO NOT EXCEED TOTAL DOSE OF 32GM DAILY FOR ALL JOINTS. 100 Oct 31, 2018 [id number] Oct 06, 2018 ANAYELI KIRKPATRICK [facility] DICLOFENAC NA 1% GEL,TOP APPLY 2 GRAMS A FFECTED AREA TWO TIMES A DAY NEEDED FOR PAIN AND INFLAMMATION. DO NOT EXCEED 16GM DAILY TO ANY AFFECTED JOINT OF LOWER EXTREMITIES. DO NOT EXCEED 8GM DAILY TO ANY AFFECTED JOINT OF UPPER EXTREMITES. DO NOT EXCEED TOTAL DOSE OF 32GM DAILY FOR ALL JOINTS. 100 Jan 17, 2019 [id number] Dec 20, 2018 PAMELA RAMSEY FLUTICASONE PROPIONATE 50MCG/SPRAY SOLN,NASAL,16GM Active INSTILL 1 SPRAY IN EACH NOSTRIL ONCE A DAY SHAKE GENTLY BEFORE USE! - MUST BE USED DIRECTED FOR 3 WEEKS TO PROVIDE BENEFIT. * NO EARLY REFILLS * 1UNIT = 30DAYS AT 4 PF/DAY OR 60DAYS AT 2PF/DAY 2 Dec 19, 2019 [id number] August 26, 2019 PAMELA RAMSEY CBGUILLERMO KETOTIFEN 0.025% SOLN,OPH Active INSTILL 1 DROP IN BOTH EYES TWO TIMES A DAY FOR RELIEF OF ALLERGY SYMPTOMS IN EYE(S) Feb 01, 2020 [id number] September 04, 2019 [facility] LANCET,SOFTCLIX Active USE LANCET BIW FOR TESTING BL OOD GLUCOSE DIRECTED 100 Sep 29, 2020 [id number] Sep 30, 2019 MAURICIO RANKIN [facility] LANCET,SOFTCLIX Discontinued USE LANCET BIW FO R TESTING BLOOD GLUCOSE DIRECTED 100 Dec 19, 2019 [id number] Jun 06, 2019 [facility] RAMSE[facility] LANCET,SOFTCLIX Discontinued USE LANCET BIW FO R TESTING BLOOD GLUCOSE DIRECTED 100 Jul 25, 2019 [id number] Nov 12, 2018 PAMELA RAMSEY LISINOPRIL 40MG TAB Non- VA TAKE ONE-HALF TABLET BY MOUTH EVERY MORNING Non-VA Documented by: PAMELA RAMSEY nted at: [facility] LORATADINE/PSEUDOEPHEDRINE TAB,SA Non-VA TAKE BY MOUTH No n-VA Documented by: JUAN LANG nted at: ARTUR BLAS [facility] MAGNESIUM OXIDE 250MG TAB Non-VA TAKE 125 TABLETS BY MOUTH ONCE A DAY Non-VA Documented by: PADMA LONG nted at: [facility] NESS MONTELUKAST NA 10MG TAB Non-VA TAKE ONE TABLET BY MOUTH EVERY EVENING Non-VA Documented by: PAMELA RAMSEY nted at: [facility] OMEPRAZOLE 20MG CAP,EC Active TAKE 2 CAPSULES B Y MOUTH BEFORE BREAKFAST 30 MINUTES BEFORE EATING TO LOWER STOMACH ACID (REPLACES ACIPHEX) 180 Dec 19, 2019 [id number] August 26, 2019 PAMELA RAMSEY POTASSIUM GLUCONATE TAB Non-VA TAKE 595MG BY MOUTH ONCE A DAY N on-VA Documented by: PADMA LONG nted at: [facility] PRASUGREL HCL 10MG TAB N on-VA TAKE ONE TABLET BY MOUTH ONCE A DAY Non-VA Documented by: KATHERINE MATT nted at: [facility] PREGABALIN 150MG CAP,ORAL Non-VA TAKE 1 CAPSULE BY MOUTH TWO TIMES A DAY Non-VA Docume nted by: PAMELA RAMSEY nted at: [facility] PREGABALIN 150MG CAP,ORAL Non-VA TAKE 1 CAPSULE BY MOUTH TWO TIMES A DAY Non-VA Docume nted by: PAMELA RAMSEY Docume nted at: [facility] SEMAGLUTIDE INJ,SOLN Non -VA INJECT SUBCUTANEOUSLY EVERY WEEK Non-VA Documented by: ANAYELI KIRKPATRICK Docume nted at: [facility] TERBINAFINE HCL 1% CREAM,TOP Active APPLY LIGHT LY TO AFFECTED AREA TWO TIMES A DAY FOR INFECTION 90 Sep 23, 2020 [id number] Sep 24, 2019 ADRIEL HERNANDEZ UREA 20% CREAM,TOP Active APPLY LIGHTLY (20%) TO AFFECTED AREA TWO TIMES A DAY NEEDED TO PROMOTE HEALING,RUB IN UNTIL COMPLETELY ABSORBED*FOR TOPICAL USE ONLY* APPLY TO BOTH FEET DIRECTED. 90 Sep 25, 2020 [id number] Sep 26, 2019 ADRIEL HERNANDEZ Problems (Conditions): All historical and current Section Date Range: From patient's date of to the date document was create d. This section includes a list of Problems (Conditions) know n to [facility] for the patient. It includes both active and inacti ve problems (conditions). The data comes from all [place] treatment facilities. Problem Status Problem Code Date of Onset Date of Resolution Comm ent(s) Provider Source Alcohol intake above recommended sensible limits Active 510649527 PADMA LONG [facility] Allergic conjunctivitis Active 993847092 PARADISNEDA [facility] Bilateral senile combined form cataracts of eyes Active 96472146831 9108 PARADISFACUNDONEDA Luda [facility] Bilateral tinnitus Active 0940484086852 CHASTITY JEAN [facility] Coronary arteriosclerosis Active 03684030 September 08, 2014 Entered By: PADMA LONG Comment: hx of ptca to RCA several yrs. agoSeptember 08, 2014 Entered By: PADMA LONG Comment: heart cath 09/01/14, neg. / previous stent to RCA,, [place] HATCHER, JENNEY R [facility] Diabetes mellitus Active 68228668 PAMELA RAMSEY [facility] Disorder of pancreas Active 8613183 September 08, 2014 Entered By: PADMA LONG Comment: 2.5cm low density lseion in bodyMay 2014 Entered By: PADMA LONG Comment: question of communication with pancreatic ductMay 2014 Entered By: PADMA LONG Comment: favored to be cystic pancreatic cancerMay 2014 Entered By: PADMA LONG Comment: per abdominal CT 09/01/14, via [place] PADMA LONG [facility] Dry eyes Active 801458561 [facility] Gastro-esophageal reflux disease without esophagitis ( SNOMED CT 636976293) Active 111612054 ALF GUEVARA [facility] Hyperlipidemia (SNOMED CT 47534989) Active 54182625 PAMELA RAMSEY [facility] Lung mass Active 223817957 September 08, 2014 E ntered By: PADMA LONG Comment: 4.5 cm mass, post. segment right upper lobe.September 08, 2014 Entered By: PADMA LONG Comment: mild adenopathy in mediastinum and bilat. hilaMay 2014 Entered By: PADMA LONG Comment: most likely related to lung cancerMa2014 Entered By: PADMA LONG Comment: per ct angio of chest with contrast 09/01/14,via abida menesesarSep 23, 2014 Entered By: PADMA LONG Comment: per path report- mod. differentiated bronchogenic adenoca. 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 Active 32479347 KATHERINE MATT [facility] Obesity Active 472287708 [facility] Obstructive sleep apnea syndrome (SNOMED CT 52898213) Active 702768 015 [facility] Pancreatic cyst Active 60882448 JAYLENE GUEVARA [facility] Papilloma of right eyelid Active [id number] [facility] SHAW [facility] Polyp of colon Active 80454800 Jan 23 16 Entered By: PADMA LONG Comment: c-scope 01/17/16, multiple benign colonic polypsMar 2017 Entered By: PADAM LONG Comment: [facility], three benign polyps- sigmoid colon, transverse colon,cecum. see path report cprs SHARRON TORRES [place] [facility] Pulmonary emphysema Active 55689768 0 BRIANA LESLYE [facility] Sensorineural hearing loss, bilateral Active 794987657 BRIDGETTEMilaCHASTITY [facility] Snoring Active 76555559 SONG BULLOCK [facility] Type 2 diabetes mellitus without complication Active 574671965 [facility] Environmental Allergies (ICD-9-CM 477.9) Inactive 477.9 Dec 18, 2017 PADMA LONG [facility] External hemorrhoids without mention of complication (ICD-9- CM 455.3) Inactive 455.3 Dec 18, 2017 PADMA LONG [facility] Impotence of organic origin (ICD-9-CM 607.84) Inactive 607.84 Dec 18, 2017 PADMA LONG [facility] Screening for Lipoid disorders (ICD-9-CM V77.91) Inactive V77.91 Jan 18, 2007 [facility] Stye * (ICD-9-CM 373.11) Inactive 373.11 Dec 18, 201 8 Jan 18, 2007 Entered By: PADMA LONG Comment: bilat lower lids, chronic/recurrent PADMA LONG [facility] Tobacco Use Disorder, Continuous Inactive 305.1 Dec 18, 2017 Jan 18, 2007 Entered By: PADMA LONG Comment: one ppd PADMA LONG [facility] Radiology Reports: +/- 30 days of [...] Encounter. The data comes from all [facility] facilities. Date/Time Pathology Report Provider Source Apr [...] 11:11) Microscopic examination is performed. DIAGNOSIS: Specimen: [id number] Spec Type: SURGICAL Abdulkadir: 04/03/19 Rec: 04/03/19-1241 PATHOLOGIC DIAGNOSIS Skin lesion, right upper cheek, biopsy: 1. Seborrheic keratosis, not involving resection margins. 2. Solar elastosis. Skin lesion, right lower mid margin, biopsy: 1. Seborrheic keratosis, with tumor at tissue edge/margin, but with benign features. LL COPIES TO: KATHERINE MATT [facility] PATHOLOGIST CODES: [id number]/2 at 1235 The gross and microscopic examinations and interpretation were performed at [facility] Department of Pathology, [address] [place] [address]. Slides and paraffin blocks are on file at [facility]. =--=--=--=--=--=--=--=--=--=--=--=--=--=--=--=--=--=--=--=--=--=--=--=--=--=-- Performing Laboratory: Surgical Pathology Report Performed By: [facility] [CLIA# [id number]] [address] [place] [address] [facility] 15 Encounter Notes: All associated encounter notes This section contains the clinical notes associated to the Encounter. Date/Time Encounter Note(s) Provider Source Mar 10, 2019 01:01 PM PHYSICAL MEDICINE REHAB CONS ULT: LOCAL TITLE: WI-REHAB/CONSULT (CS) STANDARD TITLE: PHYSICAL MEDICINE REHAB CONSULT DATE OF NOTE: MAR 10, 2019@13:01 ENTRY DATE: MAR 10, 2019@13:01:57 AUTHOR: NAGA MATAMOROS COSIGNER: URGENCY: STATUS: COMPLETED PHYSICAL THERAPY LUMBAR TRACTION UNIT TRIAL APPT: 03/10/19 11:15AM REFERRAL: Km Bai PA-C dated Feb. Diagnosis: M51.36 Other Intervertebral Disc Degeneration, Lumbar Region SUBJECTIVE: Pt. reports that he is here today to receive training and take home a lumbar traction unit today. Pt. reports he hopes it is here because he has had a hard time with transportation and people cancelling appointments. [place] reports using lumbar traction at current PT office in the community, just needs training on home device. Pt. reports that he does not have any history of surgical intervention in his back or history of bone density issues. Pain Scale (0-10): Current: 5/10 Best: 5/10 Worst: 10/10 Aggravating Factors: prolonged standing and walking Easing Factors: lumbar traction/decompression Cauda Equina Special Questions: Do you have numbness or tingling in the saddle area? No Any recent problems with bowel or bladder function? No SOCIAL/EMPLOYMENT HISTORY: is from [place], [place], receiving treatment in community for low back pain. PAST MEDICAL HISTORY: 1. Gastro-esophageal reflux disease without esophagitis (SNOMED CT 517581128) 2. Hyperlipidemia (SNOMED CT 60314426) 3. Diabetes mellitus 4. Coronary arteriosclerosis hx of pact to RCA several yrs. ago heart Cath 09/01/14, neg. / previous stent to RCA,, [place] 5. 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 Lung mass 4.5 cm mass, post. segment right upper lobe. mild adenopathy in mediastinum and bilat. darby most likely related to lung cancer per ct angio of chest with contrast 09/01/14,[place] per path report- mod. differentiated bronchogenic adenoca. 7. Pulmonary emphysema 8. Alcohol intake above recommended sensible limits 9. Pancreatic cyst 10. Polyp of colon c-scope 01/17/16, eneida monsalve benign colonic polyps [facility]scope,[facility], three benign polyps- sigmoid colon, transverse colon,cecum. see path report cprs 11. Obstructive sleep apnea (SNOMED CT 7 0138833) 12. Snoring 13. Obesity 14. Sensorineural hearing loss, bilatera l 15. Bilateral tinnitus 16. Type 2 diabetes mellitus without com plication 17. Dry eyes 18. Allergic conjunctivitis 19. Papilloma of right eyelid 20. Bilateral senile combined form catar acts of eyes DIAGNOSTIC TESTS: NONE AVAILABLE FOR LUMBAR SPINE MEDICATIONS: Refer to active medications list. ADL's: Pt. is independent with ADLs, IADLs, is self-limiting when pain is severe. Patient's Goal(s): To obtain lumbar traction unit for home use. OBJECTIVE: OBSERVATION: Mental Status: Alert and oriented LUMBAR ROM: Flexion: 50% Extension: 50% Sidebend (L): 50% Sidebend (R): 50% Rotation (L): 50% Rotation (R): 50% STRENGTH: FUNCTIONAL FOR AMBULATION AND TRANSFERS SENSATION: Intermitted pain down bilateral LEs, RLE>LLE PALPATION: Slump Test: + Single Knee to Chest: - Straight Leg Raise: + moderate hamstring restriction Piriformis Length: - Treatment: Initiated trial of mechanical lumbar traction with home [facility] Unit this date. Pt. able to tolerate 80-90lbs of static traction, requires cueing for positioning, strap placement and pump operation. Pt. does well, is able to position straps and work gauge independently by the end of the appointment. reports feeling a stretch during treatment, reports feeling same feeling in hip and in sciatica region, this tells him that the treatment is working, reports he is confident this device will help him. Following traction patient was instructed in abdominal bracing and log rolling prior to returning to seated position. Pt. was instructed in use of wheel placement and removal prior to using unit at home, verbalized understanding. Patient was educated on the present pathology, POC, and home exercise guidelines and precautions. Patient was involved in the formation of the treatment plan and goals and agreed. HEP: abdominal bracing ASSESSMENT: This is a 64 year old male who presents to physical therapy evaluation with reports of low back pain. This patients signs and symptoms are most consistent with lumbar radiculopathy secondary to degenerative and possible stenotic changes of lumber spine. This patient presents the following impairments: pain, decreased ROM. This patient presents with the following functional limitations: difficulty with standing and walking, difficulty with maintaining positions. PT intervention to include trial and disbursement of home lumbar traction unit as patient is currently receiving care in the community in [place]. Due to no noted comorbid factors likely to affect treatment or outcomes, the current musculoskeletal exam, and the stable, chronic nature of his pain and pathology, this should be considered a case of low complexity. GOAL: Pt. will report reduced pain in back with trial of mechanical lumbar traction. GOAL MET GOAL: Pt. will be independent with home lumbar mechanical traction unit. GOAL MET PLAN: Pt. was seen for 1x equipment training and disbursement, no further skilled intervention is required. Total time spent with patient: [35 minutes]. /gisell/ NAGA MATAMOROS PT DPT Signed: 03/10/2019 14:57 NAGA MATAMOROS [facility]
--- OUTSIDE RECORDS SUMMARY | 2019-11-11 02:22 | XMS REPORT | Encounter Summary ---
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 Date/Time Encounter Type Encounter Description Reason Provider Source Jan 31, 2019 09:00 AM OFFICE/OUTPATIENT VISIT EST OPTOMETRY ICD-10-CM E11.9 Type 2 diabetes mellitus without complications with Provider Comments: Type 2 diabetes mellitus without complication (SNOMED CT 830743888) ANDREW ALEJO [facility] IHE Encounter Template Text not used by [facility] Assessments - Encounter Diagnoses This section includes the primary and secondary diag noses documented for the Encounter. Date/Time Primary/Secondary Diagnosis Diagnosis Name Provider Source Jan 31, 2019 11:31 AM PRIMARY Type 2 diabetes mellitus w ithout complications HUBERT GUZMAN [facility] Jan 31, 2019 11:31 AM SECONDARY Combined forms of age-related cataract, bilateral HUBERT GUZMAN [facility] Jan 31, 2019 11:31 AM SECONDARY Dry eye syndrome of bilate ral lacrimal glands HUBERT GUZMAN [facility] Jan 31, 2019 11:31 AM SECONDARY Hypermetropia, bilateral Josafat GUZMAN [facility] Jan 31, 2019 11:31 AM SECONDARY Other benign neopl asm skin/ right lower eyelid, inc canthus HUBERT GUZMAN [facility] Jan 31, 2019 11:31 AM SECONDARY Other chronic allergic con junctivitis HUBERT GUZMAN [facility] Jan 31, 2019 11:31 AM SECONDARY Presbyopia THOMASEVANSHUBERT Lloyd [facility] Jan 31, 2019 11:31 AM SECONDARY Regular astigmatism, bilateral D HUBERT CHINO [facility] Plan of Treatment: Future Appointments (+ [...] The data comes from all [place] treatment [facility]. Appointment Date/Time Appointment Type Appointment Facili ty Name Mar 10, 2019 12:30 PM AMBULATORY - SURGERY [facility] Mar 21, 2019 09:15 AM AMBULATORY - NONE [facility] Mar 21, 2019 09:30 AM AMBULATORY - MEDICINE [facility] Mar 21, 2019 09:31 AM AMBULATORY - MEDICINE [facility] Mar 21, 2019 10:00 AM AMBULATORY - MEDICINE [facility] Mar 21, 2019 10:01 AM AMBULATORY - MEDICINE [facility] Mar 26, 2019 10:00 AM [facility] Apr 03, 2019 10:00 AM AMBULATORY - SURGERY [facility] Apr 14, 2019 10:00 AM AMBULATORY - SURGERY [facility] Apr 28, 2019 11:00 AM AM[facility]ORY - NONE [facility] Jun 25, 2019 11:30 AM AM[facility]UL[facility]ORY - NONE [facility] Jun 25, 2019 01:15 PM AMBULATORY - MEDICINE [facility] Jul 23, 2019 11:00 AM AMBULATORY - NONE [facility] Jul 25, 2019 08:00 AM AMBULATORY - NONE [facility] Surgical Procedures: All [...] to adverse reactions to drug (diso rder) [facility], VISN 15 PLAVIX September 08, 2014 Propensity to adverse reactions to drug (diso rder) [facility], VISN 15 Medications: VA dispensed (-15 months) and Non-VA Documented (Obtained Outside V A) Section Date Range: 1) prescriptions processed by a VA pharmacy in the last 15 m [facility], and 2) all medications recorded in the [place] medical record as "non-VA medic ations". Pharmacy [...] TEST BLOOD GLUCOSE 50 Dec 19, 2019 [id number] September 04, 2019 PAMELA RAMSEY ACCU-CHEK CHARLES PLUS (GLUCOSE) TEST STRIP Discontinued USE 1 STRIP FOR TESTING TWO TIMES PER WEEK - DIRECTED TO TEST BLOOD GLUCOSE 50 Jul 25, 2019 [id number] Nov 12, 2018 PAMELA RAMSEY ALBUTEROL SO4 90MCG/ACTUAT (CFC-F) INHL,ORAL,6.7GM Active INHALE 2 PUFFS BY ORAL INHALATION EVERY 4 HOURS NEEDED FOR BREATHING. SHAKE WELL. RINSE MOUTHPIECE FREQUENTLY TO PREVENT CLOGGING. USE NEEDED FOR SHORTNESS OF AIR/WHEEZING FOR BREATHING. SHAKE WELL. RINSE MOUTHPIECE FREQUENTLY TO PREVENT CLOGGING. USE NEEDED FOR SHORTNESS OF AIR/WHEEZING 1 Dec 19, 2019 [id number] September 04, 2019 PAMELA RAMSEY CBGUILLERMO ALCOHOL PREP PAD Active USE 1 PAD ON SKIN BIW TO CLEAN AND DISINFECT THE SKIN 200 Sep 29, 2020 [id number] Sep 30, 2019 MAURICIO RANKIN [facility] ALCOHOL PREP PAD Discontinued USE 1 PAD ON SKIN BI W TO CLEAN AND DISINFECT THE SKIN 200 Dec 19, 2019 [id number] Jun 06, 2019 PAMELA RAMSEY CBGUILLERMO ALCOHOL PREP PAD Discontinued USE 1 PAD ON SKIN BI W TO CLEAN AND DISINFECT THE SKIN 200 Jul 25, 2019 [id number] Nov 12, 2018 PAMELA RAMSEY ASPIRIN 25MG/DIPYRIDAMOLE 200MG CAP,SA Active T CHAPIN 1 CAPSULE BY MOUTH TWO TIMES A DAY - SWALLOW WHOLE. DO NOT CRUSH OR CHEW. FOR RECURRENT TIA/STROKE 180 Dec 19, 2019 [id number] Dec 20, 2018 BRAULIOPAMELA TOMAS ASPIRIN 25MG/DIPYRIDAMOLE 200MG CAP,SA Discontinued T CHAPIN 1 CAPSULE BY MOUTH TWO TIMES A DAY - SWALLOW WHOLE. DO NOT CRUSH OR CHEW. FOR RECURRENT TIA/STROKE 180 Feb 06, 2019 [id number] Sep 28, 2018 ZACHARY GRECO [facility] ASPIRIN 81MG TAB,EC Non- VA TAKE ONE TABLET BY MOUTH ONCE A DAY Non-VA Documented by: PADMA LONG nted at: PRIMITIVO NESS ATORVASTATIN CA 80MG TAB Active TAKE ONE TABLET BY MOUTH AT BEDTIME FOR CHOLESTEROL - REPORT ANY UNEXPLAINED MUSCLE PAIN/WEAKNESS TO YOUR PROVIDER 90 Dec 19, 2019 [id number] September 04, 2019 PAMELA RAMSEY ATORVASTATIN CA 80MG TAB Discontinued TAKE ONE TABLET BY MOUTH AT BEDTIME FOR CHOLESTEROL - REPORT ANY UNEXPLAINED MUSCLE PAIN/WEAKNESS TO YOUR PROVIDER 90 Dec 20, 2018 [id number] Nov 12, 2018 PAMELA RAMSEY BUDESONIDE 160MCG/FORMOTEROL FUM 4.5MCG/SPRAY INHL,ORAL,10.2 GM Active INHALE 2 PUFFS BY MOUTH TWO TIMES A DAY FOR BREATHING. SHAKE WELL. RINSE MOUTH AND SPIT AFTER EACH USE. 3 Apr 24, 2020 [id number] August 22, 2019 LISSA OATES [facility] CALCIUM/VITAMIN D TAB No n-VA TAKE BY MOUTH ONCE A DAY Non-V A Documented by: PADMA LONG nted at: PRIMITIVO NESS CARBOXYMETHYLCELLULOSE NA 0.5% SOLN,OPH Active INSTILL ONE DROP IN BOTH EYES FOUR TIMES A DAY FOR DRY EYES 15 Feb 01, 2020 [id number] September 03 0 NEDA SHAW [facility] DICLOFENAC NA 1% GEL,TOP Discontinued APPLY 2 GRAMS A FFECTED AREA TWO TIMES A DAY NEEDED FOR PAIN AND INFLAMMATION. DO NOT EXCEED 16GM DAILY TO ANY AFFECTED JOINT OF LOWER EXTREMITIES. DO NOT EXCEED 8GM DAILY TO ANY AFFECTED JOINT OF UPPER EXTREMITES. DO NOT EXCEED TOTAL DOSE OF 32GM DAILY FOR ALL JOINTS. 100 Oct 31, 2018 [id number] Oct 06, 2018 ANAYELI KIRKPATRICK [facility] DICLOFENAC NA 1% GEL,TOP APPLY 2 GRAMS A FFECTED AREA TWO TIMES A DAY NEEDED FOR PAIN AND INFLAMMATION. DO NOT EXCEED 16GM DAILY TO ANY AFFECTED JOINT OF LOWER EXTREMITIES. DO NOT EXCEED 8GM DAILY TO ANY AFFECTED JOINT OF UPPER EXTREMITES. DO NOT EXCEED TOTAL DOSE OF 32GM DAILY FOR ALL JOINTS. 100 Jan 17, 2019 [id number] Dec 20, 2018 PAMELA RAMSEY FLUTICASONE PROPIONATE 50MCG/SPRAY SOLN,NASAL,16GM Active INSTILL 1 SPRAY IN EACH NOSTRIL ONCE A DAY SHAKE GENTLY BEFORE USE! - MUST BE USED DIRECTED FOR 3 WEEKS TO PROVIDE BENEFIT. * NO EARLY REFILLS * 1UNIT = 30DAYS AT 4 PF/DAY OR 60DAYS AT 2PF/DAY 2 Dec 19, 2019 [id number] August 26, 2019 PAMELA RAMSEY KETOTIFEN 0.025% SOLN,OPH Active INSTILL 1 DROP IN BOTH EYES TWO TIMES A DAY FOR RELIEF OF ALLERGY SYMPTOMS IN EYE(S) Feb 01, 2020 [id number] September 04, 2019 NEDA SHAW [facility] LANCET,SOFTCLIX Active USE LANCET BIW FOR TESTING BL OOD GLUCOSE DIRECTED Sep 29, 2020 [id number] Sep 30, 2019 MAURICIO RANKIN CB LANCET,SOFTCLIX Discontinued USE LANCET BIW FO R TESTING BLOOD GLUCOSE DIRECTED Dec 19, 2019 [id number] Jun 06, 2019 PAMELA RAMSEY CBGUILLERMO LANCET,SOFTCLIX Discontinued USE LANCET BIW FO R TESTING BLOOD GLUCOSE DIRECTED Jul 25, 2019 [id number] Nov 12, 2018 PAMELA RAMSEY LISINOPRIL 40MG TAB Non- VA TAKE ONE-HALF TABLET BY MOUTH EVERY MORNING Non-VA Documented by: PAMELA RAMSEY nted at: PRIMITIVO NESS LORATADINE/PSEUDOEPHEDRINE TAB,SA Non-VA TAKE BY MOUTH No n-VA Documented by: JUAN LANG nted at: [facility]UR BLAS [facility] MAGNESIUM OXIDE 250MG TAB Non-VA TAKE 125 [...] ACID (REPLACES ACIPHEX) 180 Dec 19, 2019 [id number] August 26, 2019 PAMELA RAMSEY POTASSIUM GLUCONATE TAB Non-VA TAKE 595MG BY MOUTH ONCE A DAY N on-VA Documented by: PADMA LONG Docume nted at: PRIMITIVO NESS PRASUGREL HCL 10MG TAB N on-VA TAKE ONE TABLET BY MOUTH ONCE A DAY Non-VA Documented by: KATHERINE HARDWICK Docume nted at: [facility] PREGABALIN 150MG CAP,ORAL Non-VA TAKE [...] ANAYELI KIRKPATRICK Docume nted at: ARTUR BLAS [facility] TERBINAFINE HCL 1% CREAM,TOP Active APPLY LIGHT LY TO AFFECTED AREA TWO TIMES A DAY FOR INFECTION Sep 23, 2020 [id number] Sep 24, 2019 ADRIEL HERNANDEZ UREA 20% CREAM,TOP Active APPLY LIGHTLY (20%) TO AFFECTED AREA TWO TIMES A DAY NEEDED TO PROMOTE HEALING,RUB IN UNTIL COMPLETELY ABSORBED*FOR TOPICAL USE ONLY* APPLY TO BOTH FEET DIRECTED. 90 Sep 25, 2020 [id number] Sep 26, 2019 ADRIEL HERNANDEZ Problems (Conditions): [...] Alcohol intake above recommended sensible limits Active 353324145 PADMA LONG [facility] Allergic conjunctivitis Active 445033059 COLINNEDAJuan [facility] Bilateral senile combined form cataracts of eyes Active 65021693760 [address] [facility] Bilateral tinnitus Active [id number] CHASTITY JEAN [facility] Coronary arteriosclerosis Active 92974466 September 08, 2014 Entered By: PADMA LONG Comment: hx of ptca to RCA several yrs. agoSeptember 08, 2014 Entered By: PADMA LONG Comment: heart cath 09/01/14, neg. / previous stent to RCA,, [facility] KALA JONES [facility] Diabetes mellitus Active 78457036 PAMELA RAMSEY [facility] Disorder of pancreas Active 3722527 September 08, 2014 Entered By: PADMA LONG Comment: 2.5cm low density lseion in bodyMay 2014 Entered By: PADMA LONG Comment: question of communication with pancreatic ductMay 2014 Entered By: PADMA LONG Comment: favored to be cystic pancreatic cancerMay 2014 Entered By: PAMDA LONG Comment: per abdominal CT 09/01/14, via abida meneses,sc PADMA LONG [facility] Dry eyes Active 632223051 [place] J PORSHA Block Juan M [facility] Gastro-esophageal reflux disease without esophagitis ( SNOMED CT 392585212) Active 290118893 ALF GUEVARA [facility] Hyperlipidemia (SNOMED CT 01542665) Active 83906664 PAMELA RAMSEY [facility] Lung mass Active 911432162 September 08, 2014 E ntered By: PADMA LONG Comment: 4.5 cm mass, post. segment right upper lobe.September 08, 2014 Entered By: PADMA LONG Comment: mild adenopathy in mediastinum and bilat. hilaMa2014 Entered By: PADMA LONG Comment: most likely related to lung cancerMa2014 Entered By: PADMA LONG Comment: per ct angio of chest with contrast 09/01/14,via [facility]esj[facility]Tom 2014 Entered By: PADMA LONG Comment: per path report- mod. differentiated bronchogenic adenoca. 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, three benign polyps- sigmoid colon, transverse colon,cecum. see path report cprs SHARRON TORRES [facility] Pulmonary emphysema Active 29347339 0 BRIANA GAVIN [facility] Sensorineural hearing loss, bilateral Active 292473290 CHASTITY JEAN [facility] Snoring Active 83660447 SONG BULLOCK [facility] Type 2 diabetes mellitus without complication Active 929382180 NEDA SHAW [facility] Environmental Allergies (ICD-9-CM 477.9) Inactive 477.9 Dec 18, 2017 PADMA LONG [facility] External hemorrhoids without mention of complication (ICD-9- CM 455.3) Inactive 455.3 Dec 18, 2017 PADMA LONG [facility] Impotence of organic origin (ICD-9-CM 607.84) Inactive 607.84 Dec 18, 2017 PADMA LONG [facility] Screening for Lipoid disorders (ICD-9-CM V77.91) Inactive V77.91 Jan 18, 2007 PADMA LONG [facility] Stye * (ICD-9-CM 373.11) Inactive 373.11 Dec 18, 201 8 Jan 18, 2007 Entered By: PADMA LONG Comment: bilat lower lids, chronic/recurrent PADMA LONG [facility] Tobacco Use Disorder, Continuous Inactive 305.1 Dec 18, 2017 Jan 18, 2007 Entered By: PADMA LONG Comment: one ppd PADMA LONG [facility] Radiology Reports: +/- 30 days of the encounter No Data Provided for This Section Pathology Reports: +/- 30 days of the encounter No Data Provided for This Section Encounter Notes: All associated encounter notes This section contains the clinical notes associated to the Encounter. Date/Time Encounter Note(s) Provider Source Jan 31, 2019 09:29 AM OPTOMETRY OUTPATIENT NOTE: LOCAL TITLE: [place]-EYE OPTOMETRY DIABETIC (BP) STANDARD TITLE: OPTOMETRY OUTPATIENT NOTE DATE OF NOTE: JAN 31, 2019@09:29 ENTRY DATE: JAN 31, 2019@09:29:17 AUTHOR: ANDREW ALEJO COSIGNER: URGENCY: STATUS: COMPLETED Active Problem Gastro-esophageal reflux disease without esop 10/20/2015 ALF GUEVARA Hyperlipidemia (SNOMED CT 04188874) E78.2 12/18/2017 PAMELA RAMSEY Diabetes mellitus E11.8 12/18/2017 PAMELA RAMSEY Coronary arteriosclerosis I25.10 03/15/2018 KALA JONES Disorder of pancreas 577.9 09/08/2014 PADMA LONG Lung mass 786.6 09/23/2014 PADMA LONG Pulmonary emphysema R09.02 01/17/2016 0 Alcohol intake above recommended sensible mcbride 09/08/2014 PADMA LONG Pancreatic cyst Q45.2 03/17/2015 ALF GUEVARA Polyp of colon Z86.010 06/28/2017 SHARRON TORRES Obstructive sleep apnea (SNOMED CT 65215717) 03/21/2018 PHILIPPE DOUGLASS Snoring R06.83 12/27/2017 SONG BULLOCK Obesity E66.9 12/27/2017 SONG BULLOCK Sensorineural hearing loss, bilateral H90.3 02/04/2018 CHASTITY JEAN Bilateral tinnitus H93.13 02/04/2018 CHASTITY JEAN Allergies: PLAVIX, BRILINTA Specialty Pre-Appt Reason for appointment: Full Exam 63 y/o MALE ALLERGIES: PLAVIX, BRILINTA Allergies reviewed, [...] UNEXPLAINED MUSCLE PAIN/WEAKNESS TO YOUR PROVIDER 6) FLUTICASONE PROP 50MCG 120D NASAL I NHL INSTILL 1 ACTIVE SPRAY IN EACH NOSTRIL ONCE A DAY SHAKE GENTLY BEFORE USE! - MUST BE USED DIRECTED FOR 3 WEEKS TO PROVIDE BENEFIT. * NO EARLY REFILLS * 1UNIT = 30DAYS AT 4 PF/DAY OR 60DAYS AT 2PF/DAY 7) LANCET,SOFTCLIX USE LANCET TWICE A WEEK FOR ACTIVE TESTING BLOOD GLUCOSE DIRECTED 8) OMEPRAZOLE 20MG EC CAP TAKE TWO CAP [...] SEMAGLUTIDE INJ,SOLN SUBCUT ANEOUSLY EVERY ACTIVE WEEK 18 Total Medications Compared newly ordered medications and [...] diabetic Last HGBA1c value and time done: 6.7 12/18/18 HGBA1c < 7, repeat in 6 months HGBA1c > 7, repeat in 3 months Eye Clinic Eye Nurse Pretest: Ocular History: Injury: No Surgery: Yes FB removal with infection Glaucoma: No Macular Degeneration: No Cataract: No Current eye meds: Yes Store brand allergy drops. BARBER: 12/2017 Past/Surgery/Family/Social History: Surgery Hx: See history Family Hx (including ocular): See history Social habits/Hobbies ie. smoke: Smoking Past Hx (Inj, illnesses): See history VISUAL ACUITY: Distance with correction: Right eye 20/30+2 Left eye 20/25 Both eyes 20/20+1 Near with correction: Right eye 20/25 Left eye 20/30+ Both eyes 20/20 HAB RX: Right Eye: +1.50-0.07u303 Left Eye: +1.00-0.87x624 Add: +2.50 CHAIR SKILLS: Pupils were 4.5mm to 3.5mm, 4.5mm to 3.5mm with no apd. EOM's were right eye full, left eye full Confrontation vasquez were right eye full, left eye full SLIT LAMP: ICARE IOP's were: 13mmHg Right Eye & 13mmHg Left Eye @ 0925. ANGLES: Patient denies history of glaucoma. I will administer eye drops per standing orders. Administer Proparacaine HCL 0.5% with one drop Both eyes Administer Tropicamide Ophthalmic solution 1% with one drop Both eyes Eye gtts administered with punctal occlusion @ 0925 Above recorded by overhead door technician and reviewed Purpose of today's exam: diabetic eye exam Last Eye exam: 12/2017 Mental Status: oriented to time, place and person Mood: talkative Chief complaint: Pt. presents for diabetic eye exam. He states that he got his DL and was told that he has to wear glasses when he drives. He states that he sees well at a distance with his glasses, but that near vision is slightly decreaed form last year in the glasses. He has noticed that headlights are bothering him at night. He reports that he is seeing starburst and halos at night. He denies eye pain. He has had more dryness, tearing, itching, and burning that is worse at night. It gets so bad that it makes his vision blurry. He is still seeing floaters. He denies flashes. Patient is using [facility] Drops 2x/day and Blink 1x/day midday. patient reports his itching is worse at night with tearing. Patient is a type 2 diabetic for the past 6 years. Taking medication and ozempic injection once weekly. Checks BS 1-3 days [facility]. BS normally around 97-110. BS today in office fasting 110. Patient reports a stye right lower lid that was a small white dot 6mo ago that grew to the size today. No bleeding/pain, has not changed in size once it grew to "full size". Irritating to the patient. Patient recently had 4 stents put in his heart on Sunday. Today's Refraction: VA: R: +1.75 -0.50 x065 20/20- L: +1.00 -0.75 x080 20/20- Add: +2.50 20/20 Final Rx: VA: R: +1.75 -0.50 x065 20/20- L: +1.00 -0.75 x080 20/20- Add: +2.50 20/20 PAL, transitions, AR coating Anterior Segment: Externals: unremarkable both eyes Lids and lashes: R: mild debris, 2+ MGD, dermatochalasis, papilloma lower lid centrally, grown over meibomian glands with lashes pushing through, some blood vessels more IT. L: mild debris, 2+ MGD, dermatochalasis Conjunctiva: R: conjunctival staining with 1+ papillary reaction L: conjunctival staining with 1+ papillary reaction Cornea: R: clear epithelium, stroma, endothelium, decreased TBUT L: clear epithelium, stroma, endothelium, decreased TBUT Sclera: R: white and quiet L: white and quiet Angles: R: 4+, deep and quiet L: 4+, deep and quiet Iris: R: flat and round, no TID/PXF/NVI L: flat and round, no TID/PXF/NVI IOP: TonoSafe @ 9:51am R: 14 mmHg L: 14 mmHg Posterior Segment: Dilated View: clear with 78D Lens: R: 1+ ACC and NS L: 1+ ACC and NS Vitreous: R: syneresis L: syneresis Optic Nerve Head: R: pink and distinct, no NVD L: pink and distinct, no NVD Cup to Disc: R: 0.30 H/V L: 0.30 H/V Macula: R: flat and clear, no hemes/edema/drusen L: flat and clear, no hemes/edema/drusen Vessels: R: 2/3, mild tortuosity L: 2/3, mild tortuosity PPole: R: clear L: clear Periphery: viewed with 20D R: no holes/tears/breaks/NVE 360 L: no holes/tears/breaks/NVE 360 Assessment: 1. Type 2 diabetes without retinopahty o r macular edema both eyes -last A1C 6.7 11/2018 2. Papilloma right lower lid -growth in past 6 months with blood vessels inside -over meibomian glands with lashes pushing through -history of smal-lobe lung cancer 3. Dry eye both eyes -patient symptomatic 4. Allergic Conjunctivitis -pt using [facility] OTC Allergy drop without relief 2x/day -using cool compresses 5. Combined cataracts both eyes -NS and ACC -not of surgical quality 6. Hyperopia, astigmatism and presbyopia both eyes -min change to Rx -current glasses scratched Plan: Discussed findings with patient, dispensed mydriatic glasses, & advised caution during period of dilation. 1. Patient educated on the importance of maintaining good glucose control and a healthy diet. Continue care with PCP. Monitor 1 year teleretinal 2. Refer to Dr. Hardwick for evaluation and possible biopsy. 3. Start ATs up to 4x/day. Mailed Refres h to patient today 4. D/C [facility] drops. Start Ketotifen 2x/day both eyes. Mailed to patient 5. Monitor 6. SRx updated for PAL transitions and A R for glare and light sensitivity reduction. Teleretinal 1 year Recommend 1-2 years or sooner if problems OPTOMETRY RESIDENT, NEDA SHAW, PARTICIPATED IN THE CARE OF THIS PATIENT. I DISCUSSED AND EXAMINED THIS CASE WITH THE OPTOMETRY RESIDENT. I CONFIRM THAT THIS INFORMATION IS ACCURATE AND COMPLETE TO THE BEST OF MY KNOWLEDGE. I AGREE WITH THE A&P FOR THIS VISIT. ANDREW ALEJO, OD [place]-P: DIABETES-EYE EXAM (E): Diabetic eye exam performed today, SEE ATTACHED EYE CLINIC NOTE /es/ ANDREW ALEJO CORK COMPOUNDER Signed: 01/31/2019 11:37 ANDREW ALEJO [facility] Jan 31, 2019 09:12 AM NURSING OUTPATIENT NOTE: LOCAL TITLE: WI-SPECIALTY PRE-APPT STANDARD TITLE: NURSING OUTPATIENT NOTE DATE OF NOTE: JAN 31, 2019@09:12 ENTRY DATE: JAN 31, 2019@09:12:30 AUTHOR: DANNIE VASQUES EXP COSIGNER: URGENCY: STATUS: COMPLETED Specialty Pre-Appt Reason for appointment: Full Exam 63 y/o MALE ALLERGIES: PLAVIX, BRILINTA Allergies reviewed, [...] UNEXPLAINED MUSCLE PAIN/WEAKNESS TO YOUR PROVIDER 6) FLUTICASONE PROP 50MCG 120D NASAL I NHL INSTILL 1 ACTIVE SPRAY IN EACH NOSTRIL ONCE A DAY SHAKE GENTLY BEFORE USE! - MUST BE USED DIRECTED FOR 3 WEEKS TO PROVIDE BENEFIT. * NO EARLY REFILLS * 1UNIT = 30DAYS AT 4 PF/DAY OR 60DAYS AT 2PF/DAY 7) LANCET,SOFTCLIX USE LANCET TWICE A WEEK FOR ACTIVE TESTING BLOOD GLUCOSE DIRECTED 8) OMEPRAZOLE 20MG EC CAP TAKE TWO CAP [...] SEMAGLUTIDE INJ,SOLN SUBCUT ANEOUSLY EVERY ACTIVE WEEK 18 Total Medications Compared newly ordered medications and [...] diabetic Last HGBA1c value and time done: 6.7 12/18/18 HGBA1c < 7, repeat in 6 months HGBA1c > 7, repeat in 3 months Eye Clinic Eye Nurse Pretest: Ocular History: Injury: No Surgery: Yes FB removal with infection Glaucoma: No Macular Degeneration: No Cataract: No Current eye meds: Yes Store brand allergy drops. BARBER: 12/2017 Past/Surgery/Family/Social History: Surgery Hx: See history Family Hx (including ocular): See history Social habits/Hobbies ie. smoke: Smoking Past Hx (Inj, illnesses): See history Chief complaint: Pt. presents for a full exam. He states that he got his DL and was told that he has to wear glasses when he drives. He states that he sees well at a distance with his glasses. He states that he feels like he is not reading as well even with his glasses. He has noticed that headlights are bothering him at night. He reports that he is seeing starburst and halos at night. He denies eye pain. He has had more dryness, tearing, itching, and burning. It gets worse at night. It gets so bad that it makes his vision blurry. He is still seeing floaters. He denies flashes. ORIENTATION: Alert X 3 MOOD: Good ACCUCHECK: F 110 VISUAL ACUITY: Distance with correction: Right eye 20/30+2 Left eye 20/25 Both eyes 20/20+1 Near with correction: Right eye 20/25 Left eye 20/30+ Both eyes 20/20 HAB RX: Right Eye: +1.50-0.95n419 Left Eye: +1.00-0.83w966 Add: +2.50 CHAIR SKILLS: Pupils were 4.5mm to 3.5mm, 4.5mm to 3.5mm with no apd. EOM's were right eye full, left eye full Confrontation vasquez were right eye full, left eye full SLIT LAMP: [facility]ARE IOP's were: 13mmHg Right Eye & 13mmHg Left Eye @ 0925. ANGLES: Patient denies history of glaucoma. I will administer eye drops per standing orders. Administer Proparacaine HCL 0.5% with one drop Both eyes Administer Tropicamide Ophthalmic solution 1% with one drop Both eyes Eye gtts administered with punctal occlusion @ 0925 /es/ DANNIE VASQUES [facility] CPOA Signed: 01/31/2019 09:26 DANNIE VASQUES [facility]
--- OUTSIDE RECORDS SUMMARY | 2019-11-11 02:22 | XMS REPORT | Encounter Summary ---
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 Date/Time Encounter Type Encounter Description Reason Provider Source Dec 24, 2018 01:00 PM Outpatient Encounter TELEPHONE/MEDICINE IC [id number] Other general symptoms and signs with Provider Comments: General Symptoms & Signs ANA CONKLIN [facility] Encounter Template Text not used by MD Assessments - Encounter Diagnoses This section includes the primary and secondary diag noses documented for the Encounter. Date/Time Primary/Secondary Diagnosis Diagnosis Name Provider Source Dec 24, 2018 01:00 PM PRIMARY Other general symptoms and signs ANA CONKLIN [facility] Plan of Treatment: Future Appointments (+ 6 months) and Future Tests (+/- 45 day s) The Plan of Treatment section includes future care activities for the patient fr om all MD treatment facilities. This section includes future appointments and fu ture orders which are active, pending or scheduled. Future Appointments This section includes appointments that were scheduled t o occur 6 months from the date of the Encounter, up to a maximum of 20 appointme nts. The data comes from all MD treatment facilities. Appointment Date/Time Appointment Type Appointment Facili ty Name Jan 06, 2019 11:00 AM AMBULATORY - NONE [facility] Jan 31, 2019 09:00 AM AMBULATORY - MEDICINE [facility] Mar 10, 2019 12:30 PM AMBULATORY - SURGERY [facility] Mar 21, 2019 09:15 AM AMBULATORY - NONE [facility] Mar 21, 2019 09:30 AM AMBULATORY - MEDICINE [facility] Mar 21, 2019 09:31 AM AMBULATORY - MEDICINE [facility] Mar 21, 2019 10:00 AM AMBULATORY - MEDICINE [facility] Mar 21, 2019 10:01 AM [facility]IC[place] [facility] Mar 26, 2019 10:00 AM AMBULATORY - NONE [facility] Apr 03, 2019 10:00 AM AMBULATORY - SURGERY [facility] Apr 14, 2019 10:00 AM AMBULATORY - SURGERY [facility] Apr 28, 2019 11:00 AM AMBULATORY - NONE [facility] Surgical Procedures: All associated to the encounter No Data Provided for This Section Lab Results: +/- 30 days of the encounter This section includes the Chemistry and Hematology Lab R esults on record with MD for the patient. Radiology Reports and Pathology Report s are provided separately, in subsequent sections. Lab Results This section contains the Chemistry/Hematology Results usha t were resulted 30 days before or 30 days after the date of the Encounter. Date/Time Source Result Type Result - Unit Interpretation Reference Range Comment Dec 18, 2018 08:45 AM [facility] CBC & DIFF Specimen Type: BLOOD No [...] 0.4 % Dec 18, 2018 08:45 AM [facility] COMPREHENSIVE METABOLIC PA KELLE Specimen Type: PLASMA [...] EGFR >60 Dec 18, 2018 08:45 AM [facility] LIPID PROFILE(HDL,TRIG,CHO L,LDL) Specimen Type: PLASMA Comment: For eGFR: eGFR results >60 are imprecise. Many variables affect the calculated result. Interpretation of eGFR results >60 must be monitored over time. CHOLESTEROL 172 mg/dL 0-200 TRIGS 190 mg/dL H 0-150 HDL-CHOLESTEROL 40 mg/dL >40 LDL (CALC) 94 mg/dL 0-99.9 Dec 18, 2018 08:45 AM [facility] PROSTATIC SPECIFIC ANTIGEN (TOTAL) Specimen Type: SERUM No comment entered. PROSTATIC SPECIFIC ANTIGEN(TOTAL) 1.3 ng/mL 0-4 Dec 18, 2018 08:45 AM [facility] HEMOGLOBIN A1C Specimen Type: [...] mg/dL 3.5-7.2 Dec 18, 2018 08:45 AM [facility] URINALYSIS Specimen Type: URINE [...] Negative Negative Dec 18, 2018 08:45 AM [facility] MICROALBUMIN (ANANT,WI) RANDO M URINE Specimen Type: URINE Comment: Microalbumin is below the linearity of the instrument, unable to calculate the albumin/creatinine ratio. *MICROALBUMIN,RAND < 5 ug/mL *MICROALB/CREAT canc mcg/mg cr *PROT/COAL DELIVERER RATIO 0.1 *UR PROTEIN 8 mg/dL *UR [...] and tobacco- related health factors from the MD facility where the Encounter took place. Current Smoking Status This section includes the most current smoking, or tobacco -related health factor, from the MD facility where the Encounter took place. Date/Time Current Smoking Status Comment Facility Jun 26, 2018 02:13 PM VA-TOBACCO QUIT 15 YRS OR MORE [facility] Tobacco Use History This section includes a history of the smoking, or tobacco -related health factors, that were collected on or before the date of the Encoun ter. The data comes from the MD facility where the Encounter took place. Date/Time Smoking Status/Tobacco Use Edu morris Jun 26, 2018 02:13 PM VA-TOBACCO QUIT 15 YRS OR MORE [facility] Jun 27, 2017 01:39 PM NON-TOBACCO USER [facility] Jun 27, 2017 01:16 PM NON-TOBACCO USER [facility] Jan 06, 2015 02:07 PM NON-TOBACCO USER [facility] Nov 23, 2014 10:38 AM NON-TOBACCO USER [facility] Oct 26, 2014 10:36 AM NON-TOBACCO USER [facility] Oct 14, 2014 11:09 AM NON-TOBACCO USER [facility] Advance Directives: All historical and current No Data Provided for This Section Allergies and Adverse Reactions (ADRs): All historical and current Section Date Range: From patient's date of to the date document was create d. This section includes Allergies and Adverse Reactions (ADR s) on record with VA for the patient. The data comes from a ll MD treatment facilities. It does not list Allergies/ADRs that were removed or entered in error. Some allergies/ADRs may be reported in t Immunization section. Allergen Event Date Event Type Reaction(s) Severity Source [place] September 08, 2014 Propensity to adverse reactions to drug (diso rder) [facility] 15 [place] September 08, 2014 Propensity to adverse reactions to drug (diso rder) [facility] 15 Medications: VA dispensed (-15 months) and Non-VA Documented (Obtained Outside V A) Section Date Range: 1) prescriptions processed by a VA pharmacy in the last 15 m [facility] [place], and 2) all medications recorded in the VA medical record as "non-VA medic ations". Pharmacy terms refer to VA pharmacy's work on prescriptions. VA patient s are advised to take their medications as instructed by their health care team. The data comes from all MD treatment facilities. Glossary of Pharmacy Terms:Active = A prescription that can be filled at the local MD pharmacy.Active: On Hold = An active prescription that will not be filled until pharmacy resolves the issue.Active: Susp = An active prescription that is not scheduled to be filled yet.Clinic Order = A medication received during a visit to a MD clinic or emergency department (currently not available).Discontinued [...] may be a prescription from either the MD or other providers that was filled outside the MD. Or, it may be an over the [...] TEST BLOOD GLUCOSE 50 Dec 19, 2019 [id number] September 04, 2019 PAMELA RAMSEY CBGUILLERMO ACCU-CHEK CHARLES PLUS (GLUCOSE) TEST STRIP Discontinued USE 1 STRIP FOR TESTING TWO TIMES PER WEEK - DIRECTED TO TEST BLOOD GLUCOSE 50 Jul 25, 2019 [id number] Nov 12, 2018 PAMELA RAMSEY ALBUTEROL SO4 90MCG/ACTUAT (CFC-F) INHL,ORAL,6.7GM Active INHALE 2 PUFFS BY ORAL INHALATION EVERY 4 HOURS NEEDED FOR BREATHING. SHAKE WELL. RINSE MOUTHPIECE FREQUENTLY TO PREVENT CLOGGING. USE NEEDED FOR SHORTNESS OF AIR/WHEEZING FOR BREATHING. SHAKE WELL. RINSE MOUTHPIECE FREQUENTLY TO PREVENT CLOGGING. USE NEEDED FOR SHORTNESS OF AIR/WHEEZING 1 Dec 19, 2019 [id number] September 04, 2019 PAMELA RAMSEY CBGUILLERMO ALCOHOL PREP PAD Active USE 1 PAD ON SKIN BIW TO CLEAN AND DISINFECT THE SKIN Sep 29, 2020 [id number] Sep 30, 2019 [facility] ALCOHOL PREP PAD Discontinued USE 1 PAD ON SKIN BI W TO CLEAN AND DISINFECT THE SKIN 200 Dec 19, 2019 [id number] Jun 06, 2019 [facility] ALCOHOL PREP PAD Discontinued USE 1 PAD ON SKIN BI W TO CLEAN AND DISINFECT THE SKIN 200 Jul 25, 2019 [id number] Nov 12, 2018 [facility] ASPIRIN 25MG/DIPYRIDAMOLE 200MG CAP,SA Active T CHAPIN 1 CAPSULE BY MOUTH TWO TIMES A DAY - SWALLOW WHOLE. DO NOT CRUSH OR CHEW. FOR RECURRENT TIA/STROKE 180 Dec 19, 2019 [id number] Dec 20, 2018 PAMELA RAMSEY [facility] ASPIRIN 25MG/DIPYRIDAMOLE 200MG CAP,SA Discontinued T CHAPIN 1 CAPSULE BY MOUTH TWO TIMES A DAY - SWALLOW WHOLE. DO NOT CRUSH OR CHEW. FOR RECURRENT TIA/STROKE 180 Feb 06, 2019 [id number] Sep 28, 2018 ZACHARY GRECO [facility] ASPIRIN 81MG TAB,EC Non- VA TAKE ONE TABLET BY MOUTH ONCE A DAY Non-VA Documented by: PADMA LONG nted at: [facility] ATORVASTATIN CA 80MG TAB Active TAKE ONE TABLET BY MOUTH AT BEDTIME FOR CHOLESTEROL - REPORT ANY UNEXPLAINED MUSCLE PAIN/WEAKNESS TO YOUR PROVIDER 90 Dec 19, 2019 [id number] September 04, 2019 BRAULIO,PAMELA NESS ATORVASTATIN CA 80MG TAB Discontinued TAKE ONE TABLET BY MOUTH AT BEDTIME FOR CHOLESTEROL - REPORT ANY UNEXPLAINED MUSCLE PAIN/WEAKNESS TO YOUR PROVIDER 90 Dec 20, 2018 [id number] Nov 12, 2018 PAMELA RAMSEY [facility] BUDESONIDE 160MCG/FORMOTEROL FUM 4.5MCG/SPRAY INHL,ORAL,10.2 GM Active INHALE 2 PUFFS BY MOUTH TWO TIMES A DAY FOR BREATHING. SHAKE WELL. RINSE MOUTH AND SPIT AFTER EACH USE. 3 Apr 24, 2020 [id number] August 22, 2019 LISSA OATES [facility] CALCIUM/VITAMIN D TAB No n-VA TAKE BY MOUTH ONCE A DAY Non-V A Documented by: PADMA LONG nted at: [facility] CARBOXYMETHYLCELLULOSE NA 0.5% SOLN,OPH Active INSTILL ONE DROP IN BOTH EYES FOUR TIMES A DAY FOR DRY EYES 15 Feb 01, 2020 [id number] September 03 0 [facility] DICLOFENAC NA 1% GEL,TOP Discontinued APPLY 2 GRAMS A FFECTED AREA TWO TIMES A DAY NEEDED FOR PAIN AND INFLAMMATION. DO NOT EXCEED 16GM DAILY TO ANY AFFECTED JOINT OF LOWER EXTREMITIES. DO NOT EXCEED 8GM DAILY TO ANY AFFECTED JOINT OF UPPER EXTREMITES. DO NOT EXCEED TOTAL DOSE OF 32GM DAILY FOR ALL JOINTS. 100 Oct 31, 2018 [id number] Oct 06, 2018 ANAYELI KIRKPATRICK Luda Juan M [facility] DICLOFENAC NA 1% GEL,TOP APPLY 2 GRAMS A FFECTED AREA TWO TIMES A DAY NEEDED FOR PAIN AND INFLAMMATION. DO NOT EXCEED 16GM DAILY TO ANY AFFECTED JOINT OF LOWER EXTREMITIES. DO NOT EXCEED 8GM DAILY TO ANY AFFECTED JOINT OF UPPER EXTREMITES. DO NOT EXCEED TOTAL DOSE OF 32GM DAILY FOR ALL JOINTS. 100 Jan 17, 2019 [id number] Dec 20, 2018 PAMELA RAMSEY FLUTICASONE PROPIONATE 50MCG/SPRAY SOLN,NASAL,16GM Active INSTILL 1 SPRAY IN EACH NOSTRIL ONCE A DAY SHAKE GENTLY BEFORE USE! - MUST BE USED DIRECTED FOR 3 WEEKS TO PROVIDE BENEFIT. * NO EARLY REFILLS * 1UNIT = 30DAYS AT 4 PF/DAY OR 60DAYS AT 2PF/DAY 2 Dec 19, 2019 [id number] August 26, 2019 PAMELA RAMSEY KETOTIFEN 0.025% SOLN,OPH Active INSTILL 1 DROP IN BOTH EYES TWO TIMES A DAY FOR RELIEF OF ALLERGY SYMPTOMS IN EYE(S) Feb 01, 2020 [id number] September 04, 2019 [facility] LANCET,SOFTCLIX Active USE LANCET BIW FOR TESTING BL OOD GLUCOSE DIRECTED Sep 29, 2020 [id number] Sep 30, 2019 MAURICIO RANKIN LANCET,SOFTCLIX Discontinued USE LANCET BIW FO R TESTING BLOOD GLUCOSE DIRECTED Dec 19, 2019 [id number] Jun 06, 2019 PAMELA RAMSEY LANCET,SOFTCLIX Discontinued USE LANCET BIW FO R TESTING BLOOD GLUCOSE DIRECTED Jul 25, 2019 [id number] Nov 12, 2018 PAMELA RAMSEY LISINOPRIL 40MG TAB Non- VA TAKE ONE-HALF TABLET BY MOUTH EVERY MORNING Non-VA Documented by: PAMELA RAMSEY Docume nted at: [facility] LORATADINE/PSEUDOEPHEDRINE TAB,SA Non-VA TAKE BY MOUTH No n-VA Documented by: JUAN LANG Docume nted at: [facility] MAGNESIUM OXIDE 250MG TAB Non-VA TAKE [...] ACID (REPLACES ACIPHEX) 180 Dec 19, 2019 [id number] August 26, 2019 PAMELA RAMSEY POTASSIUM GLUCONATE TAB Non-VA TAKE 595MG BY MOUTH ONCE A DAY N on-VA Documented by: PADMA LONG nted at: [facility] PRASUGREL HCL 10MG TAB N on-VA TAKE ONE TABLET BY MOUTH ONCE A DAY Non-VA Documented by: KATHERINE MATT Docume nted at: [facility] PREGABALIN 150MG CAP,ORAL Non-VA TAKE 1 CAPSULE [...] KIRKPATRICK Docume nted at: [facility] TERBINAFINE HCL 1% CREAM,TOP Active APPLY LIGHT LY TO AFFECTED AREA TWO TIMES A DAY FOR INFECTION 90 Sep 23, 2020 [id number] Sep 24, 2019 ADRIEL HERNANDEZ UREA 20% CREAM,TOP Active APPLY LIGHTLY (20%) TO AFFECTED AREA TWO TIMES A DAY NEEDED TO PROMOTE HEALING,RUB IN UNTIL COMPLETELY ABSORBED*FOR TOPICAL USE ONLY* APPLY TO BOTH FEET DIRECTED. 90 Sep 25, 2020 [id number] Sep 26, 2019 ADRIEL HERNANDEZ Problems (Conditions): All historical and current Section Date Range: From patient's date of to the date document was create d. This section includes a list of Problems (Conditions) know n to VA for the patient. It includes both active and inacti ve problems (conditions). The data comes from all MD treatment facilities. Problem Status Problem Code Date of Onset Date of Resolution Comm ent(s) Provider Source Alcohol intake above recommended sensible limits Active [id number] PADMA LONG [facility] Allergic conjunctivitis [facility]202335 [facility] Bilateral senile combined form cataracts of eyes Active [id number] 9108 [facility] Bilateral tinnitus Active [id number] CHASTITY JEAN [facility] Coronary arteriosclerosis Active 85053359 September 08, 2014 Entered By: PADMA LONG Comment: hx of ptca to RCA several yrs. agoMa2014 Entered By: PADMA LONG Comment: heart cath 09/01/14, neg. / previous stent to RCA,, via abida meneses,tx KALA JONES [facility] Diabetes mellitus Active 15897663 PAMELA RAMSEY [facility] Disorder of pancreas Active 1150003 September 08, 2014 Entered By: PADMA LONG Comment: 2.5cm low density lseion in bodyMay 2014 Entered By: PADMA LONG Comment: question of communication with pancreatic ductMay 2014 Entered By: PADMA LONG Comment: favored to be cystic pancreatic cancerMay 2014 Entered By: PADMA LONG Comment: per abdominal CT 09/01/14, via abida meneses,tx PADMA LONG [facility] Dry eyes Active 531981335 [facility] Gastro-esophageal reflux disease without esophagitis ( SNOMED CT 324856245) Active 436702048 ALF GUEVARA [facility] Hyperlipidemia (SNOMED CT 66184008) Active 16274144 PAMELA RAMSEY [facility] Lung mass Active 312127557 September 08, 2014 E ntered By: PADMA [...] bronchogenic adenoca. 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 Active 18408845 KATHERINE MATT [facility] Obesity Active 461313526 [facility] Obstructive sleep apnea syndrome (SNOMED CT 80005059) Active 035006 015 [place] D[place]ASS [facility] Pancreatic cyst Active 00265520 JAYLENE GUEVARA [facility] Papilloma of right eyelid Active [id number] [facility] Polyp of colon Active 06598609 Jan 23 16 Entered By: PADMA LONG Comment: c-scope 01/17/16, multiple benign colonic polypsJun 28, 2017 Entered By: PADMA LONG Comment: c-scope,06/25/17,[facility], three benign polyps- sigmoid colon, transverse colon,cecum. see path report cprs SHARRON TORRES [facility] Pulmonary emphysema Active 07931314 0 BRIANA GAVIN [facility] Sensorineural hearing loss, bilateral Active 457647033 CHASTITY JEAN [facility] Snoring Active 79563371 [place] [facility] Type 2 diabetes mellitus without complication Active 013304995 [facility] Environmental Allergies (ICD-9-CM 477.9) Inactive 477.9 Dec 18, 2017 PADMA LONG [facility] External hemorrhoids without mention of complication (ICD-9- CM 455.3) Inactive 455.3 Dec 18, 2017 [facility] Impotence of organic origin (ICD-9-CM 607.84) Inactive 607.84 Dec 18, 2017 PADMA LONG [facility] Screening for Lipoid disorders (ICD-9-CM V77.91) Inactive V77.91 Jan 18, 2007 [facility] Stye * (ICD-9-CM 373.11) Inactive 373.11 Dec 18, 201 8 Jan 18, 2007 Entered By: PADMA LONG Comment: bilat lower lids, chronic/recurrent [facility] Tobacco Use Disorder, Continuous Inactive 305.1 Dec 18, 2017 Jan 18, 2007 Entered By: PADMA LONG Comment: one ppd PADMA LONG [facility] Radiology Reports: +/- 30 days of the encounter No Data Provided for This Section Pathology Reports: +/- 30 days of the encounter No Data Provided for This Section Encounter Notes: All associated encounter notes This section contains the clinical notes associated to the Encounter. Date/Time Encounter Note(s) Provider Source Dec 26, 2018 11:28 AM TELEPHONE ENCOUNTER NOTE: LOCAL TITLE: WI-TELEPHONE/SPECIALTY STANDARD TITLE: TELEPHONE ENCOUNTER NOTE DATE OF NOTE: DEC 26, 2018@11:28 ENTRY DATE: DEC 26, 2018@11:28:52 AUTHOR: ANA CONKLIN EXP COSIGNER: URGENCY: STATUS: COMPLETED WI-TELEPHONE/SPECIALTY Has ADDENDA Ludowici phoned clinic to report he has completed PT. PT effective for pain control however pain in low back with radiculopathy to leg returned after 2 weeks of stopping. Pain is shooting and sharp in nature and occurs with standing too long. Enc to continue stretching and stregthening exercises as recommended by PT. States the best relief of symptoms were from using traction. Inquiring if traction unit could be ordered for home. Also states using TENs which provides approx 2 hrs of relief. Inquired about pad replacement. Prosthetics extension provided and transferred via phone. Alerting provider to home traction unit request if deemed appropriate. /gisell/ ANA CONKLIN RN Signed: 12/26/2018 11:34 Receipt Acknowledged By: 01/13/2019 12:01 /gisell/ JANUARY HILLMAN PA-C 01/13/2019 ADDENDUM STATUS: COMPLETED Home traction unit ordered though PT. /gisell/ JANUARY HILLMAN PA-C Signed: 01/13/2019 12:05 Receipt Acknowledged By: * AWAITING SIGNATURE * ANA CONKLIN,ANA [facility]
--- OUTSIDE RECORDS SUMMARY | 2019-11-11 02:22 | XMS REPORT | Encounter Summary ---
Author Author Department of [facility] Aff rs[facility]BERTH Organization [facility] Address [address] [place] [address] Phone Unavailable Care Team Providers Care Tin Plater Name Role Phone ADRIEL HERNANDEZ PCP Unavailable Insurance Providers: All historical and current No Data Provided for This Section Selected Encounter This section includes the information on record at [place] for the Encounter. Date/Time Encounter Type Encounter Description Reason Provider Source Dec 24, 2018 10:11 AM Outpatient Encounter ADMIN PAT ACTIVTIES ([place] NCT) [facility] IHE Encounter Template Text not used by [facility] Assessments - Encounter Diagnoses No Data Provided [...] Jan 06, 2019 11:00 AM AMBULATORY - [facility] ARTUR BLAS [facility] Jan 31, 2019 09:00 AM AMBULATORY - MEDICINE [facility] Mar 10, 2019 12:30 PM AMBULATORY - SURGERY [facility] Mar 21, 2019 09:15 AM AMBULATORY - NONE [facility] Mar 21, 2019 09:30 AM AMBULATORY - MEDICINE [facility] Mar 21, 2019 09:31 AM AMBULATORY - MEDICINE [facility] BLAS [facility] Mar 21, 2019 10:00 AM AMBULATORY - MEDICINE [facility] Mar 21, 2019 10:01 AM AMBULATORY - MEDICINE [facility] BLAS [facility] Mar 26, 2019 10:00 AM AMBULATORY - NONE [facility] Apr 03, 2019 10:00 AM AMBULATORY - SURGERY ARTUR CARRASQUILLO Apr 14, 2019 10:00 AM AMBULATORY - SURGERY [facility] Apr 28, 2019 11:00 AM AMBULATORY - NONE [facility] Surgical Procedures: All associated to the [...] Range Comment Dec 18, 2018 08:45 AM [facility] CBC & DIFF Specimen Type: BLOOD [...] 0.4 % Dec 18, 2018 08:45 AM [facility] COMPREHENSIVE METABOLIC PA KELLE Specimen Type: [...] EGFR >60 Dec 18, 2018 08:45 AM [facility] LIPID PROFILE(HDL,TRIG,CHO L,LDL) Specimen Type: PLASMA Comment: For eGFR: eGFR results >60 are imprecise. Many variables affect the calculated result. Interpretation of eGFR results >60 must be monitored over time. CHOLESTEROL 172 mg/dL 0-200 TRIGS 190 mg/dL H 0-150 HDL-CHOLESTEROL 40 mg/dL >40 LDL (CALC) 94 mg/dL 0-99.9 Dec 18, 2018 08:45 AM [facility] PROSTATIC SPECIFIC ANTIGEN (TOTAL) Specimen Type: SERUM No comment entered. PROSTATIC SPECIFIC ANTIGEN(TOTAL) 1.3 ng/mL 0-4 Dec 18, 2018 08:45 AM [facility] HEMOGLOBIN A1C Specimen Type: BLOOD No [...] < 5 ug/mL *MICROALB/CREAT canc mcg/mg cr *PROT/MANAGER [place] RATIO 0.1 *UR PROTEIN 8 mg/dL *UR [...] took place. Date/Time Smoking Status/Tobacco Use Comment [facility] it Nov 23, 2017 09:51 AM CURRENT TOBACCO USER (READY TO QUIT) [facility] Nov 23, 2017 09:51 AM TOBACCO CESSATION REFERRAL DECLINED [facility] Nov 23, 2017 09:51 AM TOBACCO USER OFFERED [facility] Dec 18, 2016 08:55 AM NON-TOBACCO USER [facility] Dec 01, 2005 08:32 AM CURRENT NON-SMOKER [facility] Dec 01, 2005 08:32 AM LIFETIME NON-SMOKER [facility] Dec 01, 2005 08:32 AM LIFETIME NON-TOBACCO USER [facility] Dec 01, 2005 08:32 AM NON-SMOKER [facility] Dec 01, 2005 08:32 AM NON-TOBACCO USER [facility] Advance Directives: All historical and current [...] adverse reactions to drug (diso rder) [facility] 15 PLAVIX September 08, 2014 Propensity to adverse reactions to drug (diso rder) [facility] 15 Medications: VA dispensed (-15 months) and Non-VA Documented (Obtained Outside V A) Section Date Range: 1) prescriptions processed by a VA pharmacy in the last 15 m [facility], and 2) all medications recorded in [...] may be a prescription from either the [place] or other providers that was filled outside [...] TEST BLOOD GLUCOSE 50 Dec 19, 2019 [id number] September 04, 2019 PAMELA RAMSEY ACCU-CHEK CHARLES PLUS (GLUCOSE) TEST STRIP Discontinued USE 1 STRIP FOR TESTING TWO TIMES PER WEEK - DIRECTED TO TEST BLOOD GLUCOSE 50 Jul 25, 2019 [id number] Nov 12, 2018 PAMELA RAMSEY ALBUTEROL SO4 90MCG/ACTUAT (CFC-F) INHL,ORAL,6.7GM Active INHALE 2 PUFFS BY ORAL INHALATION EVERY 4 HOURS NEEDED FOR BREATHING. SHAKE WELL. RINSE MOUTHPIECE FREQUENTLY TO PREVENT CLOGGING. USE NEEDED FOR SHORTNESS OF AIR/WHEEZING FOR BREATHING. SHAKE WELL. RINSE MOUTHPIECE FREQUENTLY TO PREVENT CLOGGING. USE NEEDED FOR SHORTNESS OF AIR/WHEEZING 1 Dec 19, 2019 [id number] September 04, 2019 PAMELA RAMSEY CBGUILLERMO ALCOHOL PREP PAD Active USE 1 PAD ON SKIN BIW TO CLEAN AND DISINFECT THE SKIN 200 Sep 29, 2020 [id number] Sep 30, 2019 [facility] ALCOHOL PREP PAD Discontinued USE 1 PAD ON SKIN BI W TO CLEAN AND DISINFECT THE SKIN 200 Dec 19, 2019 [id number] Jun 06, 2019 PAMELA RAMSEY CBGUILLERMO ALCOHOL PREP PAD Discontinued USE 1 PAD ON SKIN BI W TO CLEAN AND DISINFECT THE SKIN 200 Jul 25, 2019 [id number] Nov 12, 2018 P[facility]ELA RAMSEY [facility] ASPIRIN 25MG/DIPYRIDAMOLE 200MG CAP,SA Active T CHAPIN 1 CAPSULE BY MOUTH TWO TIMES A DAY - SWALLOW WHOLE. DO NOT CRUSH OR CHEW. FOR RECURRENT TIA/STROKE 180 Dec 19, 2019 [id number] Dec 20, 2018 PAMELA RAMSEY ASPIRIN 25MG/DIPYRIDAMOLE 200MG CAP,SA Discontinued T CHAPIN 1 CAPSULE BY MOUTH TWO TIMES A DAY - SWALLOW WHOLE. DO NOT CRUSH OR CHEW. FOR RECURRENT TIA/STROKE 180 Feb 06, 2019 [id number] Sep 28, 2018 ZACHARY GRECO V [facility] ASPIRIN 81MG TAB,EC Non- VA TAKE ONE TABLET BY MOUTH ONCE A DAY Non-VA Documented by: PADMA LONG nted at: [facility] ATORVASTATIN CA 80MG TAB Active TAKE ONE TABLET BY MOUTH AT BEDTIME FOR CHOLESTEROL - REPORT ANY UNEXPLAINED MUSCLE PAIN/WEAKNESS TO YOUR PROVIDER 90 Dec 19, 2019 [id number] September 04, 2019 PAMELA RAMSEY ATORVASTATIN CA 80MG TAB Discontinued TAKE ONE TABLET BY MOUTH AT BEDTIME FOR CHOLESTEROL - REPORT ANY UNEXPLAINED MUSCLE PAIN/WEAKNESS TO YOUR PROVIDER 90 Dec 20, 2018 [id number] Nov 12, 2018 PAMELA RAMSEY BUDESONIDE 160MCG/FORMOTEROL FUM 4.5MCG/SPRAY INHL,ORAL,10.2 GM Active INHALE 2 PUFFS BY MOUTH TWO TIMES A DAY FOR BREATHING. SHAKE WELL. RINSE MOUTH AND SPIT AFTER EACH USE. 3 Apr 24, 2020 [id number] August 22, 2019 LISSA OATES [facility] CALCIUM/VITAMIN D TAB No n-VA TAKE BY MOUTH ONCE A DAY Non-V A Documented by: PADMA LONG nted at: [facility] CARBOXYMETHYLCELLULOSE NA 0.5% SOLN,OPH Active INSTILL ONE DROP IN BOTH EYES FOUR TIMES A DAY FOR DRY EYES 15 Feb 01, 2020 [id number] September 03 0 [facility]ED[facility] SHAW [facility] DICLOFENAC NA 1% GEL,TOP Discontinued APPLY 2 GRAMS A FFECTED AREA TWO TIMES A DAY NEEDED FOR PAIN AND INFLAMMATION. DO NOT EXCEED 16GM DAILY TO ANY AFFECTED JOINT OF LOWER EXTREMITIES. DO NOT EXCEED 8GM DAILY TO ANY AFFECTED JOINT OF UPPER EXTREMITES. DO NOT EXCEED TOTAL DOSE OF 32GM DAILY FOR ALL JOINTS. 100 Oct 31, 2018 [id number] Oct 06, 2018 ANAYELI KIRKPATRICK [facility] DICLOFENAC NA 1% GEL,TOP APPLY 2 GRAMS A FFECTED AREA TWO TIMES A DAY NEEDED FOR PAIN AND INFLAMMATION. DO NOT EXCEED 16GM DAILY TO ANY AFFECTED JOINT OF LOWER EXTREMITIES. DO NOT EXCEED 8GM DAILY TO ANY AFFECTED JOINT OF UPPER EXTREMITES. DO NOT EXCEED TOTAL DOSE OF 32GM DAILY FOR ALL JOINTS. 100 Jan 17, 2019 [id number] Dec 20, 2018 PAMELA RAMSEY FLUTICASONE PROPIONATE 50MCG/SPRAY SOLN,NASAL,16GM Active INSTILL 1 SPRAY IN EACH NOSTRIL ONCE A DAY SHAKE GENTLY BEFORE USE! - MUST BE USED DIRECTED FOR 3 WEEKS TO PROVIDE BENEFIT. * NO EARLY REFILLS * 1UNIT = 30DAYS AT 4 PF/DAY OR 60DAYS AT 2PF/DAY 2 Dec 19, 2019 [id number] August 26, 2019 PAMELA RAMSEY KETOTIFEN 0.025% SOLN,OPH Active INSTILL 1 DROP IN BOTH EYES TWO TIMES A DAY FOR RELIEF OF ALLERGY SYMPTOMS IN EYE(S) Feb 01, 2020 [id number] September 04, 2019 NED[facility] SHAW [facility] LANCET,SOFTCLIX Active USE LANCET BIW FOR TESTING BL OOD GLUCOSE DIRECTED Sep 29, 2020 [id number] Sep 30, 2019 MAURICIO RANKIN LANCET,SOFTCLIX Discontinued USE LANCET BIW FO R TESTING BLOOD GLUCOSE DIRECTED Dec 19, 2019 [id number] Jun 06, 2019 PAMELA RAMSEY LANCET,SOFTCLIX Discontinued USE LANCET BIW FO R TESTING BLOOD GLUCOSE DIRECTED Jul 25, 2019 [id number] Nov 12, 2018 PAMELA RAMSEY LISINOPRIL 40MG TAB Non- VA TAKE ONE-HALF TABLET BY MOUTH EVERY MORNING Non-VA Documented by: PAMELA RAMSEY nted at: [facility] LORATADINE/PSEUDOEPHEDRINE TAB,SA Non-VA TAKE BY MOUTH No n-VA Documented by: JUAN LANG nted at: [facility] MAGNESIUM OXIDE 250MG TAB Non-VA TAKE 125 [...] ACID (REPLACES ACIPHEX) 180 Dec 19, 2019 [id number] August 26, 2019 PAMELA RAMSEY POTASSIUM GLUCONATE TAB Non-VA TAKE 595MG BY MOUTH ONCE A DAY N on-VA Documented by: PADMA LONG Docume nted at: [facility] PRASUGREL HCL 10MG TAB N on-VA TAKE ONE TABLET BY MOUTH ONCE A DAY Non-VA Documented by: KATHERINE MATT Docume nted at: [facility] PREGABALIN 150MG CAP,ORAL Non-VA TAKE 1 CAPSULE [...] ANAYELI KIRKPATRICK Docume nted at: [facility] BL[facility] TERBINAFINE HCL 1% CREAM,TOP Active APPLY LIGHT LY TO AFFECTED AREA TWO TIMES A DAY FOR INFECTION 90 Sep 23, 2020 [id number] Sep 24, 2019 ADRIEL HERNANDEZ UREA 20% CREAM,TOP Active APPLY LIGHTLY (20%) TO AFFECTED AREA TWO TIMES A DAY NEEDED TO PROMOTE HEALING,RUB IN UNTIL COMPLETELY ABSORBED*FOR TOPICAL USE ONLY* APPLY TO BOTH FEET DIRECTED. 90 Sep 25, 2020 [id number] Sep 26, 2019 ADRIEL HERNANDEZ Problems (Conditions): [...] Alcohol intake above recommended sensible limits Active 835117594 PADMA LONG [facility] Allergic conjunctivitis Active 803634320 [place] FALL[place] [facility] Bilateral senile combined form cataracts of eyes Active 14665699720 9108 [facility] Bilateral tinnitus Active 6175001248370 ACOSTAABBYCHASTITY [facility] Coronary arteriosclerosis Active 85154068 September 08, 2014 Entered By: PADMA LONG Comment: hx of ptca to RCA several yrs. agoSeptember 08, 2014 Entered By: PADMA LONG Comment: heart cath 09/01/14, neg. 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 segment right upper lobe.September 08, 2014 Entered By: PADMA LONG Comment: mild adenopathy in mediastinum and bilat. hilaMa2014 Entered By: PADMA LONG Comment: most likely related to lung cancerMay 2014 Entered By: PADMA LONG Comment: per ct angio of chest with contrast 09/01/14,via abida menesesflTom 2014 Entered By: PADMA LONG Comment: per path report- mod. differentiated bronchogenic adenoca. 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 Active 06777049 KATHERINE MATT [facility] Obesity Active 559417521 [facility] Obstructive sleep apnea syndrome (SNOMED CT 95895941) Active 776210 015 [place] [facility] Pancreatic cyst Active 50375708 JAYLENE GUEVARA [facility] Papilloma of right eyelid Active 248704908599261 NEDA SHAW [facility] Polyp of colon Active 32034082 Jan 23 Entered By: PADMA LONG Comment: c-scope 01/17/16, multiple benign colonic polypsJun 28, 2017 Entered By: PADMA LONG Comment: c-scope,06/25/17,[facility], three benign polyps- sigmoid colon, transverse colon,cecum. see path report cprs SHARRON TORRES [facility] Pulmonary emphysema Active 26813715 0 BRIANA GAVIN [facility] Sensorineural hearing loss, bilateral Active 355590443 CHASTITY JEAN [facility] Snoring Active 55791578 S[place] BULLOCK [facility] Type 2 diabetes mellitus without complication Active 303316508 NDEA SHAW [facility] Environmental Allergies (ICD-9-CM 477.9) Inactive 477.9 Dec 18, 2017 PADMA LONG [facility] External hemorrhoids without mention of complication (ICD-9- CM 455.3) Inactive 455.3 Dec 18, 2017 PADMA LONG [facility] Impotence of organic origin (ICD-9-CM 607.84) Inactive 607.84 Dec 18, 2017 PADMA LONG [facility] Screening for Lipoid disorders (ICD-9-CM V77.91) Inactive V77.91 Jan 18, 2007 PADMA LONG [facility] Stye * (ICD-9-CM 373.11) Inactive 373.11 Dec 18, 201 8 Jan 18, 2007 Entered By: PADMA LONG Comment: bilat lower lids, chronic/recurrent PADMA LONG [facility] Tobacco Use Disorder, Continuous Inactive 305.1 Dec 18, 2017 Jan 18, 2007 Entered By: PADMA LONG Comment: one ppd PADMA LONG [facility] Radiology Reports: +/- 30 days of the encounter No Data Provided for This Section Pathology Reports: +/- 30 days of the encounter No Data Provided for This Section Encounter Notes: All associated encounter notes This section contains the clinical notes associated to the Encounter. Date/Time Encounter Note(s) Provider Source Dec 24, 2018 10:11 AM ADMINISTRATIVE NOTE: LOCAL TITLE: [place]-[facility] STANDARD TITLE: ADMINISTRATIVE NOTE DATE OF NOTE: DEC 24, 2018@10:11 ENTRY DATE: DEC 24, 2018@10:11:45 AUTHOR: BESSIE BOWERS EXP COSIGNER: URGENCY: STATUS: COMPLETED [facility] Administrative Note: Administrative notes: [facility] called pt to sched A1C appt for late February and pt requested that it can be done when pt has sleep appt in [place] in late february /gisell/ BESSIE [facility] Signed: 12/24/2018 10:14 Receipt Acknowledged By: 12/30/2018 09:14 /gisell/ SHANIQUA DOMINGUEZ RN 12/24/2018 10:32 /gisell/ BESSIE ROCHE OC
--- OUTSIDE RECORDS SUMMARY | 2019-11-11 02:22 | XMS REPORT ---
Author Author Department [facility] HERBERTH kline Organization Department of [facility] Address [address] [place] [address] Phone Unavailable Care Team Providers Care Anime Artist Name Role Phone MARYADRIEL PCP Unavailable Insurance Providers: All historical and current No Data Provided for This Section Selected Encounter This section includes the information on record at [place] for the Encounter. Date/Time Encounter Type Encounter Description Reason Provider Source Jan 06, 2019 08:06 AM Outpatient Encounter ADMIN PAT ACTIVTIES (MASNO NCT) [facility] 15 IHE Encounter Template Text not used by [place] Assessments - Encounter Diagnoses No Data Provided for This Section Plan of Treatment: Future Appointments (+ 6 months) and Future Tests (+/- 45 day s) The Plan of Treatment section includes future care activities for the patient fr om all [place] treatment facilities. This section includes future appointments and fu ture orders which are active, pending or scheduled. Future Appointments This section includes appointments that were scheduled t o occur 6 months from the date of the Encounter, up to a maximum of 20 appointme nts. The data comes from all [place] treatment facilities. Appointment Date/Time Appointment Type Appointment Facili ty Name Jan 31, 2019 09:00 AM AMBULATORY - MEDICINE [facility] Mar 10, 2019 12:30 PM AMBULATORY - SURGERY [facility] Mar 21, 2019 09:15 AM AMBULATORY - NONE [facility] Mar 21, 2019 09:30 AM AMBULATORY - MEDICINE [facility] Mar 21, 2019 09:31 AM AMBULATORY - MEDICINE [facility] Mar 21, 2019 10:00 AM AMBULATORY - MEDICINE [facility] Mar 21, 2019 10:01 AM AMBULATORY - MEDICINE [facility]UR BLAS [facility] Mar 26, 2019 10:00 AM AMBULATORY - NONE ARTUR BLAS [facility] Apr 03, 2019 10:00 AM AMBULATORY - SURGERY [facility] Apr 14, 2019 10:00 AM AMBULATORY - SURGERY [facility] Apr 28, 2019 11:00 AM AMBULATORY - NONE [facility] BLAS [facility] Jun 25, 2019 11:30 AM AMBULATORY - NONE [facility] BLAS [facility] Jun 25, 2019 01:15 PM AMBULATORY - MEDICINE [facility] BLAS [facility] Surgical Procedures: All associated to the encounter No Data Provided for This Section Lab Results: +/- 30 days of the encounter This section includes the Chemistry and Hematology Lab R esults on record with [place] for the patient. Radiology Reports and Pathology Report s are provided separately, in subsequent sections. Lab Results This section contains the Chemistry/Hematology Results usha t were resulted 30 days before or 30 days after the date of the Encounter. Date/Time Source Result Type Result - Unit Interpretation Reference Range Comment Dec 18, 2018 08:45 AM [facility] CBC & DIFF Specimen Type: BLOOD No [...] 0.4 % Dec 18, 2018 08:45 AM [facility] COMPREHENSIVE METABOLIC PA KELLE Specimen Type: [...] EGFR >60 Dec 18, 2018 08:45 AM [facility] LIPID PROFILE(HDL,TRIG,CHO L,LDL) Specimen Type: PLASMA Comment: For eGFR: eGFR results >60 are imprecise. Many variables affect the calculated result. Interpretation of eGFR results >60 must be monitored over time. CHOLESTEROL 172 mg/dL 0-200 TRIGS 190 mg/dL H 0-150 HDL-CHOLESTEROL 40 mg/dL >40 LDL (CALC) 94 mg/dL 0-99.9 Dec 18, 2018 08:45 AM [facility] PROSTATIC SPECIFIC ANTIGEN (TOTAL) Specimen Type: SERUM No comment entered. PROSTATIC SPECIFIC ANTIGEN(TOTAL) 1.3 ng/mL 0-4 Dec 18, 2018 08:45 AM [facility] HEMOGLOBIN A1C Specimen Type: BLOOD No comment [...] Negative Negative Dec 18, 2018 08:45 AM [facility] MICROALBUMIN ([place]NT,[place]) RANDO M URINE Specimen Type: URINE Comment: Microalbumin is below the linearity of the instrument, unable to calculate the albumin/creatinine ratio. *MICROALBUMIN,RAND < 5 ug/mL *MICROALB/CREAT canc mcg/mg cr *PROT/RIVETER HAND RATIO 0.1 *UR PROTEIN 8 mg/dL *UR [...] the patient. The data comes from a [facility] treatment facilities. It does not list Allergies/ADRs that were removed or entered in error. Some allergies/ADRs may be reported in t he Immunization section. Allergen Event Date Event Type Reaction(s) Severity Source DOUG September 08, 2014 Propensity to adverse reactions to drug (diso rder) [facility] PLAVIX September 08, 2014 Propensity to adverse reactions to drug (diso rder) [facility] Medications: VA dispensed (-15 months) and Non-VA Documented (Obtained Outside V A) Section Date Range: 1) prescriptions processed by a VA pharmacy in the last 15 m [facility], and 2) all medications recorded in the [place] medical record as "non-VA medic ations". Pharmacy terms refer to VA pharmacy's work on prescriptions. VA patient s are advised to take their medications as instructed by their health care team. The data comes from all [place] treatment facilities. Glossary of Pharmacy Terms:Active = A prescription that can be filled at the local VA pharmacy.Active: On Hold = An active prescription that will not be filled until pharmacy resolves the issue.Active: Susp = An active prescription that is not scheduled to be filled yet.Clinic Order = A medication received during a visit to a [place] clinic or emergency department (currently not available).Discontinued [...] other providers that was filled outside the [place]. Or, it may be an over the [...] TEST BLOOD GLUCOSE 50 Dec 19, 2019 [id number] September 04, 2019 PAMELA RAMSEY ACCU-CHEK CHARLES PLUS (GLUCOSE) TEST STRIP Discontinued USE 1 STRIP FOR TESTING TWO TIMES PER WEEK - DIRECTED TO TEST BLOOD GLUCOSE 50 Jul 25, 2019 [id number] Nov 12, 2018 PAMELA RAMSEY ALBUTEROL SO4 90MCG/ACTUAT (CFC-F) INHL,ORAL,6.7GM Active INHALE 2 PUFFS BY ORAL INHALATION EVERY 4 HOURS NEEDED FOR BREATHING. SHAKE WELL. RINSE MOUTHPIECE FREQUENTLY TO PREVENT CLOGGING. USE NEEDED FOR SHORTNESS OF AIR/WHEEZING FOR BREATHING. SHAKE WELL. RINSE MOUTHPIECE FREQUENTLY TO PREVENT CLOGGING. USE NEEDED FOR SHORTNESS OF AIR/WHEEZING 1 Dec 19, 2019 [id number] September 04, 2019 PAMELA RAMSEY [facility] ALCOHOL PREP PAD Active USE 1 PAD ON SKIN BIW TO CLEAN AND DISINFECT THE SKIN 200 Sep 29, 2020 [id number] Sep 30, 2019 MAURICIO RANKIN [facility] ALCOHOL PREP PAD Discontinued USE 1 PAD ON SKIN BI W TO CLEAN AND DISINFECT THE SKIN 200 Dec 19, 2019 [id number] Jun 06, 2019 PAMELA RAMSEY CBGUILLERMO ALCOHOL PREP PAD Discontinued USE 1 PAD ON SKIN BI W TO CLEAN AND DISINFECT THE SKIN 200 Jul 25, 2019 [id number] Nov 12, 2018 PAMELA RAMSEY ASPIRIN 25MG/DIPYRIDAMOLE 200MG CAP,SA Active T CHAPIN 1 CAPSULE BY MOUTH TWO TIMES A DAY - SWALLOW WHOLE. DO NOT CRUSH OR CHEW. FOR RECURRENT TIA/STROKE 180 Dec 19, 2019 [id number] Dec 20, 2018 PAMELA RAMSEY ASPIRIN 25MG/DIPYRIDAMOLE 200MG CAP,SA Discontinued T CHAPIN 1 CAPSULE BY MOUTH TWO TIMES A DAY - SWALLOW WHOLE. DO NOT CRUSH OR CHEW. FOR RECURRENT TIA/STROKE 180 Feb 06, 2019 [id number] Sep 28, 2018 ZACHARY GRECO V [facility] ASPIRIN 81MG TAB,EC Non- VA TAKE ONE TABLET BY MOUTH ONCE A DAY Non-VA Documented by: PADMA LONG nted at: [facility] ATORVASTATIN CA 80MG TAB Active TAKE ONE TABLET BY MOUTH AT BEDTIME FOR CHOLESTEROL - REPORT ANY UNEXPLAINED MUSCLE PAIN/WEAKNESS TO YOUR PROVIDER 90 Dec 19, 2019 [id number] September 04, 2019 PAMELA RAMSEY ATORVASTATIN CA 80MG TAB Discontinued TAKE ONE TABLET BY MOUTH AT BEDTIME FOR CHOLESTEROL - REPORT ANY UNEXPLAINED MUSCLE PAIN/WEAKNESS TO YOUR PROVIDER 90 Dec 20, 2018 [id number] Nov 12, 2018 PAMELA RAMSEY BUDESONIDE 160MCG/FORMOTEROL FUM 4.5MCG/SPRAY INHL,ORAL,10.2 GM Active INHALE 2 PUFFS BY MOUTH TWO TIMES A DAY FOR BREATHING. SHAKE WELL. RINSE MOUTH AND SPIT AFTER EACH USE. 3 Apr 24, 2020 [id number] August 22, 2019 LISSA OATES [facility] CALCIUM/VITAMIN D TAB No n-VA TAKE BY MOUTH ONCE A DAY Non-V A Documented by: PADMA LONG nted at: [facility] CARBOXYMETHYLCELLULOSE NA 0.5% SOLN,OPH Active INSTILL ONE DROP IN BOTH EYES FOUR TIMES A DAY FOR DRY EYES Feb 01, 2020 [id number] September 03 0 [facility] DICLOFENAC NA 1% GEL,TOP Discontinued APPLY 2 GRAMS A FFECTED AREA TWO TIMES A DAY NEEDED FOR PAIN AND INFLAMMATION. DO NOT EXCEED 16GM DAILY TO ANY AFFECTED JOINT OF LOWER EXTREMITIES. DO NOT EXCEED 8GM DAILY TO ANY AFFECTED JOINT OF UPPER EXTREMITES. DO NOT EXCEED TOTAL DOSE OF 32GM DAILY FOR ALL JOINTS. 100 Oct 31, 2018 [id number] Oct 06, 2018 ANAYELI KIRKPATRICK [facility] DICLOFENAC NA 1% GEL,TOP APPLY 2 GRAMS A FFECTED AREA TWO TIMES A DAY NEEDED FOR PAIN AND INFLAMMATION. DO NOT EXCEED 16GM DAILY TO ANY AFFECTED JOINT OF LOWER EXTREMITIES. DO NOT EXCEED 8GM DAILY TO ANY AFFECTED JOINT OF UPPER EXTREMITES. DO NOT EXCEED TOTAL DOSE OF 32GM DAILY FOR ALL JOINTS. 100 Jan 17, 2019 [id number] Dec 20, 2018 PAMELA RAMSEY FLUTICASONE PROPIONATE 50MCG/SPRAY SOLN,NASAL,16GM Active INSTILL 1 SPRAY IN EACH NOSTRIL ONCE A DAY SHAKE GENTLY BEFORE USE! - MUST BE USED DIRECTED FOR 3 WEEKS TO PROVIDE BENEFIT. * NO EARLY REFILLS * 1UNIT = 30DAYS AT 4 PF/DAY OR 60DAYS AT 2PF/DAY 2 Dec 19, 2019 [id number] August 26, 2019 PAMELA RAMSEY KETOTIFEN 0.025% SOLN,OPH Active INSTILL 1 DROP IN BOTH EYES TWO TIMES A DAY FOR RELIEF OF ALLERGY SYMPTOMS IN EYE(S) Feb 01, 2020 [id number] September 04, 2019 [facility] LANCET,SOFTCLIX Active USE LANCET BIW FOR TESTING BL OOD GLUCOSE DIRECTED 100 Sep 29, 2020 [id number] Sep 30, 2019 MAURICIO RANKIN [facility] LANCET,SOFTCLIX Discontinued USE LANCET BIW FO R TESTING BLOOD GLUCOSE DIRECTED 100 Dec 19, 2019 [id number] Jun 06, 2019 PAMELA RAMSEY LANCET,SOFTCLIX Discontinued USE LANCET BIW FO R TESTING BLOOD GLUCOSE DIRECTED Jul 25, 2019 [id number] Nov 12, 2018 PAMELA RAMSEY LISINOPRIL 40MG TAB Non- VA TAKE ONE-HALF TABLET BY MOUTH EVERY MORNING Non-VA Documented by: PAMEAL RAMSEY nted at: [facility] LORATADINE/PSEUDOEPHEDRINE TAB,SA Non-VA TAKE BY MOUTH No n-VA Documented by: JUAN LANG nted at: [facility] BLAS [facility] MAGNESIUM OXIDE 250MG TAB Non-VA TAKE [...] ACID (REPLACES ACIPHEX) 180 Dec 19, 2019 [id number] August 26, 2019 PAMELA RAMSEY POTASSIUM GLUCONATE TAB Non-VA TAKE 595MG BY MOUTH ONCE A DAY N on-VA Documented by: PADMA LONG nted at: [facility] PRASUGREL HCL 10MG TAB N on-VA TAKE ONE TABLET BY MOUTH ONCE A DAY Non-VA Documented by: KATHERINE MATT nted at: [facility] PREGABALIN 150MG CAP,ORAL Non-VA TAKE 1 CAPSULE BY MOUTH TWO TIMES A DAY Non-VA Docume nted by: PAMELA RAMSEY nted at: [facility] PREGABALIN 150MG CAP,ORAL Non-VA TAKE 1 CAPSULE BY MOUTH TWO TIMES A DAY Non-VA Docume nted by: PAMELA RAMSEYed at: [facility] SEMAGLUTIDE INJ,SOLN Non -VA INJECT SUBCUTANEOUSLY EVERY WEEK Non-VA Documented by: ANAYELI KIRKPATRICK nted at: [facility] TERBINAFINE HCL 1% CREAM,TOP Active APPLY LIGHT LY TO AFFECTED AREA TWO TIMES A DAY FOR INFECTION 90 Sep 23, 2020 [id number] Sep 24, 2019 ADRIEL HERNANDEZ UREA 20% CREAM,TOP Active APPLY LIGHTLY (20%) TO AFFECTED AREA TWO TIMES A DAY NEEDED TO PROMOTE HEALING,RUB IN UNTIL COMPLETELY ABSORBED*FOR TOPICAL USE ONLY* APPLY TO BOTH FEET DIRECTED. 90 Sep 25, 2020 [id number] Sep 26, 2019 ADRIEL HERNANDEZ Problems (Conditions): All historical and current Section Date Range: From patient's date of to the date document was create d. This section includes a list of Problems (Conditions) know n to [place] for the patient. It includes both active and inacti ve problems (conditions). The data comes from all [place] treatment facilities. Problem Status Problem Code Date of Onset Date of Resolution Comm ent(s) Provider Source Alcohol intake above recommended sensible limits Active [id number] PADMA LONG [facility] Allergic conjunctivitis Active 975123843 [facility] Bilateral senile combined form cataracts of eyes Active 08474144380 9108 [facility] Bilateral tinnitus Active [id number] CHASTITY JEAN [facility] Coronary arteriosclerosis Active 46396237 September 08, 2014 Entered By: PADMA LONG Comment: hx of ptca to RCA several yrs. agoSeptember 08, 2014 Entered By: PADMA LONG Comment: heart cath 09/01/14, neg. / previous stent to RCA,, via [place] HATCHER, [facility] Diabetes mellitus Active 74317067 PAMELA RAMSEY [facility] Disorder of pancreas Active 5259772 September 08, 2014 Entered By: PADMA LONG Comment: 2.5cm low density lseion in bodyMay 2014 Entered By: PADMA LONG Comment: question of communication with pancreatic ductMay 2014 Entered By: PADMA LONG Comment: favored to be cystic pancreatic cancerMay 2014 Entered By: PADMA LONG Comment: per abdominal CT 09/01/14, via [place] PADMA LONG [facility] Dry eyes Active 234298339 NEDA SHAW [facility] Gastro-esophageal reflux disease without esophagitis ( SNOMED CT 296913963) Active 672306512 ALF GUEVARA [facility] Hyperlipidemia (SNOMED CT 85235435) Active 88416571 PAMELA RAMSEY [facility] Lung mass Active 940204910 September 08, 2014 E ntered By: PADMA LONG Comment: 4.5 cm mass, post. segment right upper lobe.September 08, 2014 Entered By: PADMA LONG Comment: mild adenopathy in mediastinum and bilat. hilaMay 2014 Entered By: PADMA LONG Comment: most likely related to lung cancerMay 2014 Entered By: PADMA LONG Comment: per ct angio of chest with contrast 09/01/14,via [place], [place]Sep 23, 2014 Entered By: PADMA LONG Comment: per path report- mod. differentiated bronchogenic adenoca. 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 Active 12609739 KATHERINE MATT [facility] Obesity Active 925940331 [facility] B[facility] Obstructive sleep apnea syndrome (SNOMED CT 28676456) Active 281774 015 [facility] Pancreatic cyst Active 85480282 JAYLENE GUEVARA [facility] Papilloma of right eyelid Active 702075088417483 NEDA SHAW [facility] Polyp of colon Active 76080522 Jan 23 16 Entered By: PADMA LONG Comment: c-scope 01/17/16, multiple benign colonic polypsJun 28, 2017 Entered By: PADMA LONG Comment: c-scope,06/25/17,[facility], three benign polyps- sigmoid colon, transverse colon,cecum. see path report cprs SHARRON TORRES JEOVANY [facility] Pulmonary emphysema Active 86316633 0 BRIANA GAVIN [facility] Sensorineural hearing loss, bilateral Active 055619098 CHASTITY JEAN [facility] Snoring Active 42657863 [place] [facility] Type 2 diabetes mellitus without complication Active 385067204 NEDA SHAW Luda [facility] Environmental Allergies (ICD-9-CM 477.9) Inactive 477.9 Dec 18, 2017 PADMA LONG [facility] External hemorrhoids without mention of complication (ICD-9- CM 455.3) Inactive 455.3 Dec 18, 2017 PADMA LONG [facility] Impotence of organic origin (ICD-9-CM 607.84) Inactive 607.84 Dec 18, 2017 PADMA LONG [facility] Screening for Lipoid disorders (ICD-9-CM V77.91) Inactive V77.91 Jan 18, 2007 PADMA LONG [facility] Stye * (ICD-9-CM 373.11) Inactive 373.11 Dec 18 8 Jan 18, 2007 Entered By: PADMA LONG Comment: bilat lower lids, chronic/recurrent PADMA LONG [facility] Tobacco Use Disorder, Continuous Inactive 305.1 Dec 18, 2017 Jan 18, 2007 Entered By: PADMA LONG Comment: one ppd PADMA LONG [facility] Radiology Reports: +/- 30 days of the encounter No Data Provided for This Section Pathology Reports: +/- 30 days of the encounter No Data Provided for This Section Encounter Notes: All associated encounter notes This section contains the clinical notes associated to the Encounter. Date/Time Encounter Note(s) Provider Source Jan 06, 2019 08:07 AM NONVA CONSULT: LOCAL TITLE: COMMUNITY CARE CONSULT RESULTS NOTE MO STANDARD TITLE: NONVA CONSULT DATE OF NOTE: JAN 06, 2019@08:07 ENTRY DATE: JUL 09, 2019@08:08:06 AUTHOR: MADALYN MUNGUIA EXP COSIGNER: URGENCY: STATUS: COMPLETED The following Non VA Care consult has been completed. See scanned document for report. NON VA Care Consult Results Other: COMMUNITY CARE-CARDIO/VIA GUTIERREZ POWELL/01/06/19 /gisell/ MADALYN MUNGUIA MSA Signed: 07/09/2019 08:08 MADALYN MUNGUIA [facility]
--- OUTSIDE RECORDS SUMMARY | 2019-11-11 02:23 | XMS REPORT | Encounter Summary ---
Author Author [facility] Organization [facility] Address [address] [place] [address] Phone Unavailable Care Team Providers Care Optical Mechanic Name Role Phone ADRIEL HERNANDEZ PCP Unavailable Insurance Providers: All historical and current No Data Provided for This Section Selected Encounter This section includes the information on record at [place] for the Encounter. Date/Time Encounter Type Encounter Description Reason Provider Source Dec 18, 2018 09:00 AM OFFICE/OUTPATIENT VISIT EST PRIMARY CARE/M EDICINE ICD-10-CM K21.9 Gastro-esophageal reflux disease without esophagitis with Provider Comments: Gastro-esophageal reflux disease without esophagitis ([facility] [id number]) PAMELA RAMSEY [facility] IHE Encounter Template Text not used by [facility] Assessments - Encounter Diagnoses This section includes the primary and secondary diag noses documented for the Encounter. Date/Time Primary/Secondary Diagnosis Diagnosis Name Provider Source Dec 18, 2018 08:52 AM PRIMARY Gastro-esophageal reflux disease without esophagitis CHERRIE JONES [facility] Dec 18, 2018 08:52 AM SECONDARY Mixed hyperlipidemia LOREN JONES [facility] Dec 18, 2018 08:52 AM SECONDARY Obesity, unspecified LOREN JONES [facility] Dec 18, 2018 08:52 AM SECONDARY Type 2 diabetes me llitus with unspecified complications CHERRIE JONES [facility] Plan of Treatment: Future Appointments (+ 6 months) and Future Tests (+/- 45 day s) The Plan of Treatment section includes future care activities for the patient fr om all [place] treatment facilities. This section includes future appointments and fu ture orders which are active, pending or scheduled. Future Appointments This section includes appointments that were scheduled t o occur 6 months from the date of the Encounter, up to a maximum of 20 appointme nts. The data comes from all [place] treatment [facility]. Appointment Date/Time Appointment Type Appointment Facili ty Name Jan 06, 2019 11:00 AM AMBULATORY - NONE [facility] Jan 31, 2019 09:00 AM AMBULATORY - MEDICINE [facility] Mar 10, 2019 12:30 PM AMBULATORY - SURGERY [facility] Mar 21, 2019 09:15 AM AMBULATORY - NONE [facility] Mar 21, 2019 09:30 AM AMBULATORY - MEDICINE [facility] Mar 21, 2019 09:31 AM AMBULATORY - MEDICINE [facility] Mar 21, 2019 10:00 AM AMBULATORY - MEDICINE [facility] Mar 21, 2019 10:01 AM AMBULATORY - MEDICINE [facility] Mar 26, 2019 10:00 AM [facility] Apr 03, 2019 10:00 AM AM[facility]UL[facility] - SURGERY [facility] Apr 14, 2019 10:00 AM AMBULATORY - SURGERY [facility] Apr 28, 2019 11:00 AM AMBULATORY - NONE [facility] Surgical Procedures: All associated to the encounter No Data Provided for This Section Lab Results: +/- 30 days of the encounter This section includes the Chemistry and Hematology Lab R esults on record with [place] for the patient. Radiology Reports and Pathology Report s are provided separately, in subsequent sections. Lab Results This section contains the Chemistry/Hematology Results usha t were resulted 30 days before or 30 days after the date of the Encounter. Date/Time Source Result Type Result - Unit Interpretation Reference Range Comment Dec 18, 2018 08:45 AM [facility] CBC & DIFF Specimen Type: [...] % Dec 18, 2018 08:45 AM [facility] COMPREHENSIVE METABOLIC PA KELLE Specimen [...] >60 Dec 18, 2018 08:45 AM [facility] LIPID PROFILE(HDL,TRIG,CHO L,LDL) Specimen [...] < 5 ug/mL *MICROALB/CREAT canc mcg/mg cr *PROT/CLUTCH OPERATOR RATIO 0.1 *UR PROTEIN 8 mg/dL *UR CREATININE 99.8 mg/dL Not Available Vital Signs: All taken on the encounter date This section contains inpatient and outpatient Vital Signs collected on the date of the Encounter. Date/Time Temperature Pulse Blood Pressure Respiratory Rate SP02 Pa in Height Weight Body Mass Index Source Dec 18, 2018 08:35 AM 125/70 mm[Hg] [facility] Dec 18, 2018 08:34 AM 98.1 F 69 /min 16 /min 96 % 3 71 in 225.7 lb 32 [facility] Dec 18, 2018 08:29 AM 3 [facility] Immunizations: All administered on the [...] Encoun ter. The data comes from the [place] facility where the Encounter took place. Date/Time Smoking Status/Tobacco Use Comment [facility] it Nov 23, 2017 09:51 AM CURRENT TOBACCO USER (READY TO QUIT) [facility] Nov 23, 2017 09:51 AM TOBACCO CESSATION REFERRAL DECLINED [facility] Nov 23, 2017 09:51 AM TOBACCO USER OFFERED MEDS [facility] Dec 18, 2016 08:55 AM NON-TOBACCO USER [facility] Dec 01, 2005 08:32 AM CURRENT NON-SMOKER [facility] Dec 01, 2005 08:32 AM LIFETIME NON-SMOKER [facility] Dec 01, 2005 08:32 AM LIFETIME NON-TOBACCO USER [facility] Dec 01, 2005 08:32 AM NON-SMOKER [facility] Dec 01, 2005 08:32 AM NON-TOBACCO USER [facility] Advance Directives: All historical and current No Data Provided for This Section Allergies and Adverse Reactions (ADRs): All historical and current Section Date Range: From patient's date of to the date document was create d. This section includes Allergies and Adverse Reactions (ADR s) on record with [facility] for the patient. The data comes from a [facility] treatment facilities. It does not list Allergies/ADRs that were removed or entered in error. Some allergies/ADRs may be reported in t he Immunization section. Allergen Event Date Event Type Reaction(s) Severity Source DOUG September 08, 2014 Propensity to adverse reactions to drug (diso rder) [facility] 15 PLAVIX September 08, 2014 Propensity to adverse reactions to drug (diso rder) [facility], VISN 15 Medications: VA dispensed (-15 months) and Non-VA Documented (Obtained Outside V A) Section Date Range: 1) prescriptions processed by a VA pharmacy in the last 15 m [facility], and 2) all medications recorded in the [place] medical record as "non-VA medic ations". Pharmacy terms refer to VA pharmacy's work on prescriptions. VA patient s are advised to take their medications as instructed by their health care team. The data comes from all [place] treatment facilities. Glossary of Pharmacy Terms:Active = A prescription that can be filled at the local [place] pharmacy.Active: On Hold = An active prescription that will not be filled until pharmacy resolves the issue.Active: Susp = An active prescription that is not scheduled to be filled yet.Clinic Order = A medication received during a visit to a [place] clinic or emergency department (currently not available).Discontinued [...] other providers that was filled outside the [place]. Or, it may be an over the [...] TEST BLOOD GLUCOSE 50 Dec 19, 2019 [id number] September 04, 2019 PAMELA RAMSEY ACCU-CHEK CHARLES PLUS (GLUCOSE) TEST STRIP Discontinued USE 1 STRIP FOR TESTING TWO TIMES PER WEEK - DIRECTED TO TEST BLOOD GLUCOSE 50 Jul 25, 2019 [id number] Nov 12, 2018 PAMELA RAMSEY ALBUTEROL SO4 90MCG/ACTUAT (CFC-F) INHL,ORAL,6.7GM Active INHALE 2 PUFFS BY ORAL INHALATION EVERY 4 HOURS NEEDED FOR BREATHING. SHAKE WELL. RINSE MOUTHPIECE FREQUENTLY TO PREVENT CLOGGING. USE NEEDED FOR SHORTNESS OF AIR/WHEEZING FOR BREATHING. SHAKE WELL. RINSE MOUTHPIECE FREQUENTLY TO PREVENT CLOGGING. USE NEEDED FOR SHORTNESS OF AIR/WHEEZING 1 Dec 19, 2019 [id number] September 04, 2019 [facility] ALCOHOL PREP PAD Active USE 1 PAD ON SKIN BIW TO CLEAN AND DISINFECT THE SKIN 200 Sep 29, 2020 [id number] Sep 30, 2019 MAURICIO RANKIN [facility] ALCOHOL PREP PAD Discontinued USE 1 PAD ON SKIN BI W TO CLEAN AND DISINFECT THE SKIN 200 Dec 19, 2019 [id number] Jun 06, 2019 PAMELA RAMSEY ALCOHOL PREP PAD Discontinued USE 1 PAD ON SKIN BI W TO CLEAN AND DISINFECT THE SKIN 200 Jul 25, 2019 [id number] Nov 12, 2018 PAMELA RAMSEY ASPIRIN 25MG/DIPYRIDAMOLE 200MG CAP,SA Active T CHAPIN 1 CAPSULE BY MOUTH TWO TIMES A DAY - SWALLOW WHOLE. DO NOT CRUSH OR CHEW. FOR RECURRENT TIA/STROKE 180 Dec 19, 2019 [id number] Dec 20, 2018 PAMELA RAMSEY ASPIRIN 25MG/DIPYRIDAMOLE 200MG CAP,SA Discontinued T CHAPIN 1 CAPSULE BY MOUTH TWO TIMES A DAY - SWALLOW WHOLE. DO NOT CRUSH OR CHEW. FOR RECURRENT TIA/STROKE 180 Feb 06, 2019 [id number] Sep 28, 2018 ZACHARY GRECO [facility] ASPIRIN 81MG TAB,EC Non- [facility] TAKE ONE TABLET BY MOUTH ONCE A DAY Non-VA Documented by: PADMA LONG nted at: [facility] ATORVASTATIN CA 80MG TAB Active TAKE ONE TABLET BY MOUTH AT BEDTIME FOR CHOLESTEROL - REPORT ANY UNEXPLAINED MUSCLE PAIN/WEAKNESS TO YOUR PROVIDER 90 Dec 19, 2019 [id number] September 04, 2019 PAMELA RAMSEY ATORVASTATIN CA 80MG TAB Discontinued TAKE ONE TABLET BY MOUTH AT BEDTIME FOR CHOLESTEROL - REPORT ANY UNEXPLAINED MUSCLE PAIN/WEAKNESS TO YOUR PROVIDER 90 Dec 20, 2018 [id number] Nov 12, 2018 PAMELA RAMSEY BUDESONIDE 160MCG/FORMOTEROL FUM 4.5MCG/SPRAY INHL,ORAL,10.2 GM Active INHALE 2 PUFFS BY MOUTH TWO TIMES A DAY FOR BREATHING. SHAKE WELL. RINSE MOUTH AND SPIT AFTER EACH USE. 3 Apr 24, 2020 [id number] August 22, 2019 LISSA OATES [facility] CALCIUM/VITAMIN D TAB No n-VA TAKE BY MOUTH ONCE A DAY Non-V A Documented by: PADMA LONG nted at: [facility] CARBOXYMETHYLCELLULOSE NA 0.5% SOLN,OPH Active INSTILL ONE DROP IN BOTH EYES FOUR TIMES A DAY FOR DRY EYES 15 Feb 01, 2020 [id number] September [address] [facility] [...] FOR ALL JOINTS. 100 Oct 31, 2018 [id number] Oct 06, 2018 ANAYELI KIRKPATRICK HAZARD [facility] DICLOFENAC NA 1% GEL,TOP APPLY 2 GRAMS A FFECTED AREA TWO TIMES A DAY NEEDED FOR PAIN AND INFLAMMATION. DO NOT EXCEED 16GM DAILY TO ANY AFFECTED JOINT OF LOWER EXTREMITIES. DO NOT EXCEED 8GM DAILY TO ANY AFFECTED JOINT OF UPPER EXTREMITES. DO NOT EXCEED TOTAL DOSE OF 32GM DAILY FOR ALL JOINTS. 100 Jan 17, 2019 [id number] Dec 20, 2018 PAMELA RAMSEY FLUTICASONE PROPIONATE 50MCG/SPRAY SOLN,NASAL,16GM Active INSTILL 1 SPRAY IN EACH NOSTRIL ONCE A DAY SHAKE GENTLY BEFORE USE! - MUST BE USED DIRECTED FOR 3 WEEKS TO PROVIDE BENEFIT. * NO EARLY REFILLS * 1UNIT = 30DAYS AT 4 PF/DAY OR 60DAYS AT 2PF/DAY 2 Dec 19, 2019 [id number] August 26, 2019 PAMELA RAMSEY KETOTIFEN 0.025% SOLN,OPH Active INSTILL 1 DROP IN BOTH EYES TWO TIMES A DAY FOR RELIEF OF ALLERGY SYMPTOMS IN EYE(S) Feb 01, 2020 [id number] September 04, 2019 [facility] LANCET,SOFTCLIX Active USE LANCET BIW FOR TESTING BL OOD GLUCOSE DIRECTED 100 Sep 29, 2020 [id number] Sep 30, 2019 MAURICIO RANKIN [facility] LANCET,SOFTCLIX Discontinued USE LANCET BIW FO R TESTING BLOOD GLUCOSE DIRECTED 100 Dec 19, 2019 [id number] Jun 06, 2019 [facility] LANCET,SOFTCLIX Discontinued USE LANCET BIW FO R TESTING BLOOD GLUCOSE DIRECTED 100 Jul 25, 2019 [id number] Nov 12, 2018 PAMELA RAMSEY LISINOPRIL 40MG TAB Non- [facility] TAKE ONE-HALF TABLET BY MOUTH EVERY MORNING Non-VA Documented by: PAMELA RAMSEY nted at: [facility] LORATADINE/PSEUDOEPHEDRINE TAB,SA Non-VA TAKE BY MOUTH No n-VA Documented by: JUAN LANG nted at: [facility] MAGNESIUM OXIDE 250MG TAB Non-VA TAKE 125 [...] ACID (REPLACES ACIPHEX) 180 Dec 19, 2019 [id number] August 26, 2019 PAMELA RAMSEY POTASSIUM GLUCONATE TAB Non-VA TAKE 595MG BY MOUTH ONCE A DAY Non-VA Documented by: PADMA LONG nted at: [facility] PRASUGREL HCL 10MG TAB N on-VA TAKE ONE TABLET BY MOUTH ONCE A DAY Non-VA Documented by: KATHERINE MATT nted at: [facility] PREGABALIN 150MG CAP,ORAL Non-VA TAKE 1 CAPSULE BY MOUTH TWO TIMES A DAY Non-VA Docume nted by: PAMELA RAMSEY nted at: [facility] PREGABALIN 150MG CAP,ORAL Non-VA TAKE 1 CAPSULE BY MOUTH TWO TIMES A DAY Non-VA Docume nted by: PAMELA RAMSEY nted at: [facility] SEMAGLUTIDE INJ,SOLN Non -VA INJECT SUBCUTANEOUSLY EVERY WEEK Non-VA Documented by: ANAYELI KIRKPATRICK nted at: [facility] TERBINAFINE HCL 1% CREAM,TOP Active APPLY LIGHT LY TO AFFECTED AREA TWO TIMES A DAY FOR INFECTION 90 Sep 23, 2020 [id number] Sep 24, 2019 ADRIEL HERNANDEZ UREA 20% CREAM,TOP Active APPLY LIGHTLY (20%) TO AFFECTED AREA TWO TIMES A DAY NEEDED TO PROMOTE HEALING,RUB IN UNTIL COMPLETELY ABSORBED*FOR TOPICAL USE ONLY* APPLY TO BOTH FEET DIRECTED. 90 Sep 25, 2020 [id number] Sep 26, 2019 ADRIEL HERNANDEZ Problems (Conditions): All historical and current Section Date Range: From patient's date of to the date document was create d. This section includes a list of Problems (Conditions) know n to [facility] for the patient. It includes both active and inacti ve problems (conditions). The data comes from all [place] treatment facilities. Problem Status Problem Code Date of Onset Date of Resolution Comm ent(s) Provider Source Alcohol intake above recommended sensible limits Active 089900520 PADMA LONG [facility] Allergic conjunctivitis Active 913357984 CHESTERFACUNDONEDA Luda [facility] Bilateral senile combined form cataracts of eyes Active [id number] [id number] u[facility] Bilateral tinnitus Active [id number] CHASTITY JEAN [facility] Coronary arteriosclerosis Active 74820980 September 08, 2014 Entered By: PADMA LONG Comment: hx of ptca to RCA several yrs. agoSeptember 08, 2014 Entered By: PADMA LONG Comment: heart cath 09/01/14, neg. / previous stent to RCA,, [place] HATCHER, JENNEY R [facility] Diabetes mellitus Active 31013034 PAMELA RAMSEY [facility] Disorder of pancreas Active 0003926 September 08, 2014 Entered By: PADMA LONG Comment: 2.5cm low density lseion in bodyMay 2014 Entered By: PADMA LONG Comment: question of communication with pancreatic ductMay 2014 Entered By: PADMA LONG Comment: favored to be cystic pancreatic cancerMay 2014 Entered By: PADMA LONG Comment: per abdominal CT 09/01/14, [place] [facility] eyes Active 712281367 [facility] Gastro-esophageal reflux disease without esophagitis ( SNOMED CT 058476812) Active 813598189 ALF GUEVARA [facility] Hyperlipidemia (SNOMED CT 16084841) Active 17547118 PAMELA RAMSEY [facility] Lung mass Active 776920274 September 08, 2014 E ntered By: PADMA LONG Comment: 4.5 cm mass, post. segment right upper lobe.September 08, 2014 Entered By: PADMA LONG Comment: mild adenopathy in mediastinum and bilat. hilaMay 2014 Entered By: PADMA LONG Comment: most likely related to lung cancerMay 2014 Entered By: PADMA LONG Comment: per ct angio of chest with contrast 09/01/14,[place] Entered By: PADMA LONG Comment: per path report- mod. differentiated bronchogenic adenoca. 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 Active 27682078 KATHERINE MATT [facility] Obesity Active 608658487 SONG BULLOCK [facility] Obstructive sleep apnea syndrome (SNOMED CT 64728672) Active 319371 015 PHILIPPE DOUGLASS [facility] Pancreatic cyst Active 65975360 JAYLENE GUEVARA [facility] Papilloma of right eyelid Active 138511210131231 NEDA SHAW [facility] Polyp of colon Active 52310941 Jan 23 16 Entered By: PADMA LONG Comment: c-scope 01/17/16, multiple benign colonic polypsMar 2017 Entered By: PADMA LONG Comment: c-scope,[facility]25/17,[facility], three benign polyps- sigmoid colon, transverse colon,cecum. see path report cprs SHARRON TORRES [place] THAYER [facility] Pulmonary emphysema Active 25470159 0 BRIANA LESLYE [facility] Sensorineural hearing loss, bilateral Active 382444343 CHASTITY JEAN Nicol [facility] Snoring Active 70483210 SONG BULLOCK [facility] Type 2 diabetes mellitus without complication Active 021970087 COLINNEDA Luda [facility] Environmental [...] 18, 2007 PADMA LONG [facility] Stye * (ICD-9-CM 373.11) Inactive 373.11 Dec 18 8 Jan 18, 2007 Entered By: PADMA LONG Comment: bilat lower lids, chronic/recurrent PADMA LONG [facility] Tobacco Use Disorder, Continuous Inactive 305.1 Dec 18, 2017 Jan 18, 2007 Entered By: PADMA LONG Comment: one ppd PADMA LONG [facility] Radiology Reports: +/- 30 days of the encounter No Data Provided for This Section Pathology Reports: +/- 30 days of the encounter No Data Provided for This Section Encounter Notes: All associated encounter notes This section contains the clinical notes associated to the Encounter. Date/Time Encounter Note(s) Provider Source Dec 18, 2018 08:51 AM MEDICATION MGT NOTE: LOCAL TITLE: MS-MEDICATION RECONCILIATION (BP,O) STANDARD TITLE: MEDICATION MGT NOTE DATE OF NOTE: DEC 18, 2018@08:51 ENTRY DATE: DEC 18, 2018@08:51:45 AUTHOR: PAMELA RAMSEY EXP COSIGNER: URGENCY: STATUS: COMPLETED MEDICATION RECONCILIATION Allergies: PLAVIX, BRILINTA Allergies reviewed, edited in CPRS as appropriate and confirmed by patient: Yes Active Outpatient Medications (including Supplies): Outpatient Medications Status = 1) ACCU-CHEK CHARLES PLUS(GLUCOSE) TEST STRIP USE 1 STRIP ACTIVE FOR TESTING TWO TIMES PER WEEK - DIRECTED TO TEST BLOOD GLUCOSE 2) ACCU-CHEK CHARLES PLUS(GLUCOSE) TEST STRIP USE 1 STRIP PENDING FOR TESTING TWO TIMES PER WEEK - DIRECTED TO TEST BLOOD GLUCOSE 3) ALBUTEROL 90MCG (CFC-F) 200D ORAL INHL INHALE 2 PUFFS ACTIVE BY ORAL INHALATION EVERY 4 HOURS NEEDED FOR BREATHING. SHAKE WELL. RINSE MOUTHPIECE FREQUENTLY TO PREVENT CLOGGING. USE NEEDED FOR SHORTNESS OF AIR/WHEEZING 4) ALBUTEROL 90MCG (CFC-F) 200D ORAL INHL INHALE 2 PUFFS PENDING BY ORAL INHALATION EVERY 4 HOURS NEEDED FOR BREATHING. SHAKE WELL. RINSE MOUTHPIECE FREQUENTLY TO PREVENT CLOGGING. USE NEEDED FOR SHORTNESS OF AIR/WHEEZING 5) ALCOHOL PREP PAD USE 1 PAD ON SKIN TWICE A WEEK TO ACTIVE CLEAN AND DISINFECT THE SKIN 6) ALCOHOL PREP PAD USE 1 PAD ON SKIN TWICE A WEEK TO PENDING CLEAN AND DISINFECT THE SKIN 7) ASPIRIN 25MG/DIPYRIDAMOLE 200MG SA CAP TAKE 1 CAPSULE ACTIVE BY MOUTH TWO TIMES A DAY - SWALLOW WHOLE. DO NOT CRUSH OR CHEW. FOR RECURRENT TIA/STROKE 8) ASPIRIN 25MG/DIPYRIDAMOLE 200MG SA CAP TAKE 1 CAPSULE PENDING BY MOUTH TWO TIMES A DAY - SWALLOW WHOLE. DO NOT CRUSH OR CHEW. FOR RECURRENT TIA/STROKE 9) ATORVASTATIN CALCIUM 80MG TAB TAKE ONE TABLET BY ACTIVE MOUTH AT BEDTIME FOR CHOLESTEROL - REPORT ANY UNEXPLAINED MUSCLE PAIN/WEAKNESS TO YOUR PROVIDER 10) ATORVASTATIN CALCIUM 80MG TAB TAKE ONE TABLET BY PENDING MOUTH AT BEDTIME FOR CHOLESTEROL - REPORT ANY UNEXPLAINED MUSCLE PAIN/WEAKNESS TO YOUR PROVIDER 11) DICLOFENAC NA 1% TOP GEL APPLY 2 GRAMS AFFECTED AREA PENDING TWO TIMES A DAY NEEDED FOR PAIN AND INFLAMMATION. DO NOT EXCEED 16GM DAILY TO ANY AFFECTED JOINT OF LOWER EXTREMITIES. DO NOT EXCEED 8GM DAILY TO ANY AFFECTED JOINT OF UPPER EXTREMITES. DO NOT EXCEED TOTAL DOSE OF 32GM DAILY FOR ALL JOINTS. 12) FLUTICASONE PROP 50MCG 120D NASAL INHL INSTILL 1 ACTIVE SPRAY IN EACH NOSTRIL ONCE A DAY SHAKE GENTLY BEFORE USE! - MUST BE USED DIRECTED FOR 3 WEEKS TO PROVIDE BENEFIT. * NO EARLY REFILLS * 1UNIT = 30DAYS AT 4 PF/DAY OR 60DAYS AT 2PF/DAY 13) FLUTICASONE PROP 50MCG 120D NASAL INHL INSTILL 1 PENDING SPRAY IN EACH NOSTRIL ONCE A DAY SHAKE GENTLY BEFORE USE! - MUST BE USED DIRECTED FOR 3 WEEKS TO PROVIDE BENEFIT. * NO EARLY REFILLS * 1UNIT = 30DAYS AT 4 PF/DAY OR 60DAYS AT 2PF/DAY 14) LANCET,SOFTCLIX USE LANCET TWICE A WEEK FOR ACTIVE TESTING BLOOD GLUCOSE DIRECTED 15) LANCET,SOFTCLIX USE LANCET TWICE A WEEK FOR PENDING TESTING BLOOD GLUCOSE DIRECTED 16) OMEPRAZOLE 20MG EC CAP TAKE TWO CAPSULES BY MOUTH ACTIVE BEFORE BREAKFAST 30 MINUTES BEFORE EATING TO LOWER STOMACH ACID (REPLACES ACIPHEX) 17) OMEPRAZOLE 20MG EC CAP TAKE TWO CAPSULES BY MOUTH PENDING BEFORE BREAKFAST 30 MINUTES BEFORE EATING TO LOWER STOMACH ACID (REPLACES ACIPHEX) Non-VA Medications Status = 1) Non-VA ASPIRIN 81MG EC TAB 81MG MOUTH ONCE A DAY ACTIVE 2) Non-VA CALCIUM/VITAMIN D TAB MOUTH ONCE A DAY ACTIVE 3) Non-VA CETIRIZINE 5MG/PSEUDO 120MG SA TAB 1 TABLET ACTIVE MOUTH ONCE A DAY 4) Non-VA LISINOPRIL 40MG TAB 20MG MOUTH EVERY MORNING ACTIVE 5) Non-VA MAGNESIUM OXIDE 250MG TAB 250MG MOUTH ONCE A ACTIVE DAY 6) Non-VA MONTELUKAST NA 10MG TAB 10MG MOUTH EVERY ACTIVE EVENING 7) Non-VA NORTRIPTYLINE HCL 25MG CAP 25MG MOUTH ONCE A ACTIVE DAY 8) Non-VA POTASSIUM GLUCONATE TAB 595MG MOUTH ONCE A DAY ACTIVE 9) Non-VA PREGABALIN 150MG ORAL CAP 150MG MOUTH TWO ACTIVE TIMES A DAY 10) Non-VA SEMAGLUTIDE INJ,SOLN SUBCUTANEOUSLY EVERY ACTIVE WEEK 27 Total Medications Compared newly ordered medications and [...] Level of Understanding: Unable to assess Comments: lab pending /gisell/ PAMELA RAMSEY Signed: 12/18/2018 08:52 PAMELA RAMSEY Dec 18, 2018 08:46 AM NURSE PRACTITIONER NOTE: LOCAL TITLE: WI-METER MAKER/NURSE/[facility] STANDARD TITLE: NURSE PRACTITIONER NOTE DATE OF NOTE: DEC 18, 2018@08:46 ENTRY DATE: DEC 18, 2018@08:46:40 AUTHOR: PAMELA RAMSEY EXP COSIGNER: URGENCY: STATUS: COMPLETED [facility]-METER MAKER/NURSE/CBOC Has ADDENDA cc:annual HPI:He is inquiring what is next plan of care regarding pain management. He is an active patient with pain management and [facility] advised to contact them. Past Medical/Surgical History: Computerized Problem List is the source for the followin. Gastro-esophageal reflux disease with out 10/20/15 TOFTELANDJAYLENE esophagitis (SNOMED CT 639956883) 2. Hyperlipidemia (SNOMED CT 77726525) 12/18/17 PAMELA RAMSEY 3. Diabetes mellitus 12/18/17 PAMELA RAMSEY 4. Coronary arteriosclerosis 03/15/18 KALA JONES hx of ptca to RCA several yrs. ago heart cath 09/01/14, neg. / previous stent to RCA,, via [facility],[place] 5. 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 Lung mass 09/23/14 PADMA LONG 4.5 cm mass, post. segment right upper lobe. mild adenopathy in mediastinum and bilat. darby most likely related to lung cancer per ct angio of chest with contrast 09/01/14,via [place] per path report- mod. differentiated bronchogenic adenoca. 7. Pulmonary emphysema 01/17/16 0 8. Alcohol intake above recommended sens ible 09/08/14 PADMA LONG limits 9. Pancreatic cyst 03/17/15 JAYLENE GUEVARA 10. Polyp of colon 06/28/17 SHARRON TORRES c-scope 01/17/16, multiple benign colonic polyps c-scope,06/25/17,[facility], three benign polyps- sigmoid colon, transverse colon,cecum. see path report cprs 11. Obstructive sleep apnea (SNOMED CT 7 7307888) 03/21/18 PHILIPPE DOUGLASS 12. Snoring 12/27/17 SONG BULLOCK 13. Obesity 12/27/17 SONG BULLOCK 14. Sensorineural hearing loss, bilatera l 02/04/18 SLEJEANETHE,CHASTITY A 15. Bilateral tinnitus 02/04/18 TED,CHASTITY A Preventative Services: Diabetes A1C:Pending PSA:pending ROS: 10 point ROS neg x as noted above. Medication reviewed and updated as applicable. Active Outpatient Medications (including Supplies): Active Outpatient Medications Status 1) ACCU-CHEK CHARLES [...] EATING TO LOWER STOMACH ACID (REPLACES ACIPHEX) Pending Outpatient Medications Status 1) ACCU-CHEK CHARLES PLUS(GLUCOSE) TEST STRIP USE 1 STRIP PENDING FOR TESTING TWO TIMES PER WEEK - DIRECTED TO TEST BLOOD GLUCOSE 2) ALBUTEROL 90MCG (CFC-F) 200D ORAL I NHL INHALE 2 PUFFS PENDING BY ORAL INHALATION EVERY 4 HOURS NEEDED FOR BREATHING. SHAKE WELL. RINSE MOUTHPIECE FREQUENTLY TO PREVENT CLOGGING. USE NEEDED FOR SHORTNESS OF AIR/WHEEZING 3) ALCOHOL PREP PAD USE 1 PAD ON SKIN TWICE A WEEK TO PENDING CLEAN AND DISINFECT THE SKIN 4) ASPIRIN 25MG/DIPYRIDAMOLE 200MG SA CAP TAKE 1 CAPSULE PENDING BY MOUTH TWO TIMES A DAY - SWALLOW WHOLE. DO NOT CRUSH OR CHEW. FOR RECURRENT TIA/STROKE 5) ATORVASTATIN CALCIUM 80MG TAB TAKE ONE TABLET BY PENDING MOUTH AT BEDTIME FOR CHOLESTEROL - REPORT ANY UNEXPLAINED MUSCLE PAIN/WEAKNESS TO YOUR PROVIDER 6) DICLOFENAC NA 1% TOP GEL APPLY 2 GR AMS AFFECTED AREA PENDING TWO TIMES A DAY NEEDED FOR PAIN AND INFLAMMATION. DO NOT EXCEED 16GM DAILY TO ANY AFFECTED JOINT OF LOWER EXTREMITIES. DO NOT EXCEED 8GM DAILY TO ANY AFFECTED JOINT OF UPPER EXTREMITES. DO NOT EXCEED TOTAL DOSE OF 32GM DAILY FOR ALL JOINTS. 7) FLUTICASONE PROP 50MCG 120D NASAL I NHL INSTILL 1 PENDING SPRAY IN EACH NOSTRIL ONCE A DAY SHAKE GENTLY BEFORE USE! - MUST BE USED DIRECTED FOR 3 WEEKS TO PROVIDE BENEFIT. * NO EARLY REFILLS * 1UNIT = 30DAYS AT 4 PF/DAY OR 60DAYS AT 2PF/DAY 8) LANCET,SOFTCLIX USE LANCET TWICE A WEEK FOR PENDING TESTING BLOOD GLUCOSE DIRECTED 9) OMEPRAZOLE 20MG EC CAP TAKE TWO CAP SULES BY MOUTH PENDING BEFORE BREAKFAST 30 MINUTES BEFORE EATING TO [...] SEMAGLUTIDE INJ,SOLN SUBCUT ANEOUSLY EVERY ACTIVE WEEK 27 Total Medications Vital Signs 125/70 (12/18/2018 08:35) 69 ( 9 08:34) 98.1 F [36.7 C] (12/18/2018 08:34) 96 (Nov@08:34:55) Physical Exam Gen: alert, oriented x 3. NAD HEENT: PERRL. EOMI. tongue midline. TM normal. MM moist and pink. pharynx normal Neck: no JVD or TM. no LAD CV: RRR s murmur. PMI normal Resp: CTA bilat. no rales, rhonchi. Abd: S/NT/ND. BS x 4 quadrants Ext: no cyanosis, clubbing, pedal edema Neuro: CN II-XII grossly intact. no extremity weakness. sensation intact. Skin: warm, dry intact Lab:pending A/P 1. DMII 2. Hyperlipidmia 3. Chronic back pain 4. GERD 5. Ob[facility] lab [facility] to Clinic. /frida RAMSEY Signed: 12/18/2018 08:51 12/19/2018 ADDENDUM STATUS: COMPLETED Labs reviewed A1C 6.7, trigs 190. Forward labs to Reji Hinojosa APRN for diabetic medicaiton adjsutment. Diabetic diet. Repeat A1C 3 months. He remains out of goal. /frida RAMSEY Signed: 12/19/2018 08:07 Receipt Acknowledged By: 12/19/2018 09:47 /frida VELASQUEZ LPN 12/19/2018 ADDENDUM STATUS: COMPLETED letter sent to pt along with lab results of providers orders. also sent a copy to Ashish Mendoza APRN for review. /frida CELIS LPN Signed: 12/19/2018 10:00 PAMELA RAMSEY Dec 18, 2018 08:26 AM NURSING OUTPATIENT NOTE: LOCAL TITLE: WI-NURSE/[facility] STANDARD TITLE: NURSING OUTPATIENT NOTE DATE OF NOTE: DEC 18, 2018@08:26 ENTRY DATE: DEC 18, 2018@08:26:49 AUTHOR: ANA CELIS EXP COSIGNER: URGENCY: STATUS: COMPLETED Reason for appointment: PCP Appointment Reason for appointment: Other: annual; back pain follow up Is the patient diabetic? Yes - patient is a diabetic. Last HGBA1c value and time done: HGBA1c < 7, repeat in 6 months HGBA1c > 7, repeat in 3 months What is your goal for today's visit? *Required Is there anything in your life that worries or stresses you that we may assist you with today? *Required No Are you registered for [employer] ([facility])? No - Are you interested in registering? No If 'yes' please hand [employer] brochure. WI-FOOT EXAM (PAVE): Foot Assessment VISUAL INSPECTION: Includes inspection for skin breaks, deformity, erythema, trauma, pallor on elevation, dependent rubor, nail deformities, extensive callus and pitting edema. Right Foot Normal Left Foot Normal PEDAL PULSES: Includes palpation of dorsalis and posterior tibial pulses and signs/symptoms of vascular compromise like pain, pallor, paresthesia or paralysis. Right Foot Normal Left Foot Normal SENSORY EXAM: Includes light tough, pin-prick, vibratory or monofilament test of sensation. Right Foot Normal sensation to monofilament Left Foot Normal sensation to monofilament LEVEL "0" (NORMAL RISK) Normal sensation and circulation No deformity No ulceration or history of amputation WI-LATEX REVIEW: Latex review for allergy: ...Patient denies latex allergy. VISN 15-INFLUENZA IMMUNIZATION : [id number] INFLUENZA IMMUNIZATION V1.0 Vaccine not given: Patient indicated influenza vaccination was received at another facility. Date: December, Exact date is unknown Location: [facility] WI-DIAG RESULT (PERSON OR PHONE): Results will be mailed or phoned to patient when available. WI-LEARNING ASSESSMENT: Patient Learning Assessment Learning Needs Assessment ...Patient Readiness to Learn (Check if individual ready to learn): ...Patient is ready to learn. Will Patient Have Difficulty Understanding Information: ...No Educational Needs: Do you need further information with: Safe & effective use of medications? ...No Safe & effective use of equipment? (Home O2, prosthetics, Rehab Medicine) ...No Potential food/drug interaction? ...No Modified diet? (If referral -- to Dietitian) ...No Rehabilitation techniques or help with independent function? (If referral -- to Rehab Medicine) ...No Patient taught on rehabilitation techniques today. Community resources (If referral -- to [facility]/) ...No When/how to obtain further treatment? ...Yes Patient responsibilities in the treatment process? (Booklet) ...No Hygiene? (If taught - Handout/PHE given that includes grooming, bathing, oral health, hair and nail care and use of toilet.) ...No Information about disease process? (If taught - appropriate handout given) ...No Advanced directives? (Booklet) ...No WI-PAIN: Pain Reassessment-Patient's updated pain score after intervention is: PAIN Score 3 Pain Documentation: Pain level 3 or less. WI-FALL RISK OP: CHRISTIE FALL SCALE The Christie Fall scale was performed and score was 0. This is indicative of low risk of falls. History of falling in past 3 months? No Secondary diagnosis: No Ambulatory aid: None/bedrest/nurse assist Intravenous therapy/Heparin lock: No Gait/Transferring: Normal/bed rest/immobile Mental Status: Oriented to own ability/knows own limitations OTHER RISK FACTORS No history of falls and no secondary diagnosis. Patient risk for falling: Low Risk pamphlet given to patient/family Is patient at risk for falling? Patient is NOT at risk for falling Is the patient 75 years of age or older? No WI-WEIGHT MGMT MOVE - NURSE: MOVE! Education: - Provided patient with 'MOVE!' handout. Discussed 'MOVE!' Program including program features, levels, support group, and patients current BMI. - Discussed health risks associated with obestiy, ie. risk of premature and numerous medical conditions such as, heart disease, stroke, type II diabetes, hyptertension, gallbladder disease, joint disease and certain cancers. 'MOVE!' Screening: Patient offered and declines referral to 'MOVE!' weight management program at this time. /gisell/ ANA CELIS LPN Signed: 12/18/2018 08:36 ANA CELIS OC
--- OUTSIDE RECORDS SUMMARY | 2019-11-11 02:23 | XMS REPORT | Encounter Summary ---
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 Date/Time Encounter Type Encounter Description Reason Provider Source Dec 19, 2018 09:47 AM Outpatient Encounter ADMIN PAT ACTIVTIES ([place]ARY[place] NCT) [facility] IHE Encounter Template Text not [...] data comes from all [place] treatment facilities. Appointment Date/Time Appointment Type Appointment Facili ty Name Jan 06, 2019 11:00 AM AMBULATORY - [facility] Jan 31, 2019 09:00 AM AMBULATORY - MEDICINE [facility] Mar 10, 2019 12:30 PM AMBULATORY - SURGERY [facility] Mar 21, 2019 09:15 AM AMBULATORY - NONE [facility] Mar 21, 2019 09:30 AM AM[facility]UL[facility]ORY - MEDICINE [facility] Mar 21, 2019 09:31 AM AMBULATORY - MEDICINE [facility] Mar 21, 2019 10:00 AM AM[facility]UL[facility]ORY - MEDICINE [facility] Mar 21, 2019 10:01 AM AMBULATORY - MEDICINE [facility] Mar 26, 2019 10:00 AM AMBULATORY - NONE [facility] Apr 03, 2019 10:00 AM AMBULATORY - SURGERY [facility] Apr 14, 2019 10:00 AM AMBULATORY - SURGERY [facility] Apr 28, 2019 11:00 AM AMBULATORY - NONE [facility] Surgical Procedures: All associated to [...] Range Comment Dec 18, 2018 08:45 AM [facility] CBC & DIFF Specimen Type: BLOOD [...] % Dec 18, 2018 08:45 AM [facility] COMPREHENSIVE METABOLIC PA KELLE Specimen Type: [...] >60 Dec 18, 2018 08:45 AM [facility] LIPID PROFILE(HDL,TRIG,CHO L,LDL) Specimen Type: PLASMA Comment: For eGFR: eGFR results >60 are imprecise. Many variables affect the calculated result. Interpretation of eGFR results >60 must be monitored over time. CHOLESTEROL 172 mg/dL 0-200 TRIGS 190 mg/dL H 0-150 HDL-CHOLESTEROL 40 mg/dL >40 LDL (CALC) 94 mg/dL 0-99.9 Dec 18, 2018 08:45 AM [facility] PROSTATIC SPECIFIC ANTIGEN (TOTAL) Specimen Type: SERUM No comment entered. PROSTATIC SPECIFIC ANTIGEN(TOTAL) 1.3 ng/mL 0-4 Dec 18, 2018 08:45 AM [facility] HEMOGLOBIN A1C Specimen Type: BLOOD [...] < 5 ug/mL *MICROALB/CREAT canc mcg/mg cr *PROT/CANE FLUME FEEDING MACHINE OPERATOR RATIO 0.1 *UR PROTEIN 8 mg/dL [...] and tobacco- related health factors from the [place] facility where the Encounter took place. Current Smoking Status This section includes the most current smoking, or tobacco -related health factor, from the [place] facility where the Encounter [...] took place. Date/Time Smoking Status/Tobacco Use Comment [facility] it Nov 23, 2017 09:51 AM CURRENT TOBACCO USER (READY TO QUIT) [facility] Nov 23, 2017 09:51 AM TOBACCO CESSATION REFERRAL DECLINED [facility] Nov 23, 2017 09:51 AM TOBACCO USER OFFERED MEDS [facility] Dec 18, 2016 08:55 AM NON-TOBACCO USER [facility] Dec 01, 2005 08:32 AM CURRENT NON-SMOKER [facility] Dec 01, 2005 08:32 AM LIFETIME NON-SMOKER [facility] Dec 01, 2005 08:32 AM LIFETIME NON-TOBACCO USER [facility] Dec 01, 2005 08:32 AM NON-SMOKER [facility] Dec 01, 2005 08:32 AM NON-TOBACCO USER [facility] Advance Directives: All historical and current No Data Provided for This Section Allergies and Adverse Reactions (ADRs): All historical and current Section Date Range: From patient's date of to the date document was create d. This section includes Allergies and Adverse Reactions (ADR s) on record with [facility] for the patient. The data comes from a ll [place] treatment facilities. It does not list Allergies/ADRs that were removed or entered in error. Some allergies/ADRs may be reported in t he Immunization section. Allergen Event Date Event Type Reaction(s) Severity Source [place] September 08, 2014 Propensity to adverse reactions to drug (diso rder) [facility] 15 [place] September 08, 2014 Propensity to adverse reactions to drug (diso rder) [facility] 15 Medications: VA dispensed (-15 months) and Non-VA Documented (Obtained Outside V A) Section Date Range: 1) prescriptions processed by a [facility] pharmacy in the last 15 m [facility], and 2) all medications recorded in the [...] may be a prescription from either the [place] or other providers that was filled outside [...] TEST BLOOD GLUCOSE 50 Dec 19, 2019 [id number] September 04, 2019 PAMELA RAMSEY ACCU-CHEK CHARLES PLUS (GLUCOSE) TEST STRIP Discontinued USE 1 STRIP FOR TESTING TWO TIMES PER WEEK - DIRECTED TO TEST BLOOD GLUCOSE 50 Jul 25, 2019 [id number] Nov 12, 2018 PAMELA RAMSEY ALBUTEROL SO4 90MCG/ACTUAT (CFC-F) INHL,ORAL,6.7GM Active INHALE 2 PUFFS BY ORAL INHALATION EVERY 4 HOURS NEEDED FOR BREATHING. SHAKE WELL. RINSE MOUTHPIECE FREQUENTLY TO PREVENT CLOGGING. USE NEEDED FOR SHORTNESS OF AIR/WHEEZING FOR BREATHING. SHAKE WELL. RINSE MOUTHPIECE FREQUENTLY TO PREVENT CLOGGING. USE NEEDED FOR SHORTNESS OF AIR/WHEEZING 1 Dec 19, 2019 [id number] September 04, 2019 PAMELA RAMSEY CBGUILLERMO ALCOHOL PREP PAD Active USE 1 PAD ON SKIN BIW TO CLEAN AND DISINFECT THE SKIN 200 Sep 29, 2020 [id number] Sep 30, 2019 [facility] ALCOHOL PREP PAD Discontinued USE 1 PAD ON SKIN BI W TO CLEAN AND DISINFECT THE SKIN 200 Dec 19, 2019 [id number] Jun 06, 2019 PAMELA RAMSEY CBGUILLERMO ALCOHOL PREP PAD Discontinued USE 1 PAD ON SKIN BI W TO CLEAN AND DISINFECT THE SKIN 200 Jul 25, 2019 [id number] Nov 12, 2018 [facility]AMELA RAMSEY [facility] ASPIRIN 25MG/DIPYRIDAMOLE 200MG CAP,SA Active T CHAPIN 1 CAPSULE BY MOUTH TWO TIMES A DAY - SWALLOW WHOLE. DO NOT CRUSH OR CHEW. FOR RECURRENT TIA/STROKE 180 Dec 19, 2019 [id number] Dec 20, 2018 PAMELA RAMSEY ASPIRIN 25MG/DIPYRIDAMOLE 200MG CAP,SA Discontinued T CHAPIN 1 CAPSULE BY MOUTH TWO TIMES A DAY - SWALLOW WHOLE. DO NOT CRUSH OR CHEW. FOR RECURRENT TIA/STROKE 180 Feb 06, 2019 [id number] Sep 28, 2018 ZACHARY GRECO [facility] ASPIRIN 81MG TAB,EC Non- [facility] TAKE ONE TABLET BY MOUTH ONCE A DAY Non-VA Documented by: PADMA LONG nted at: [facility] ATORVASTATIN CA 80MG TAB Active TAKE ONE TABLET BY MOUTH AT BEDTIME FOR CHOLESTEROL - REPORT ANY UNEXPLAINED MUSCLE PAIN/WEAKNESS TO YOUR PROVIDER 90 Dec 19, 2019 [id number] September 04, 2019 PAMELA RAMSEY ATORVASTATIN CA 80MG TAB Discontinued TAKE ONE TABLET BY MOUTH AT BEDTIME FOR CHOLESTEROL - REPORT ANY UNEXPLAINED MUSCLE PAIN/WEAKNESS TO YOUR PROVIDER 90 Dec 20, 2018 [id number] Nov 12, 2018 PAMELA RAMSEY BUDESONIDE 160MCG/FORMOTEROL FUM 4.5MCG/SPRAY INHL,ORAL,10.2 GM Active INHALE 2 PUFFS BY MOUTH TWO TIMES A DAY FOR BREATHING. SHAKE WELL. RINSE MOUTH AND SPIT AFTER EACH USE. 3 Apr 24, 2020 [id number] August 22, 2019 LISSA OATES [facility] CALCIUM/VITAMIN D TAB No n-VA TAKE BY MOUTH ONCE A DAY Non-V A Documented by: PADMA LONG nted at: [facility] CARBOXYMETHYLCELLULOSE NA 0.5% SOLN,OPH Active INSTILL ONE DROP IN BOTH EYES FOUR TIMES A DAY FOR DRY EYES 15 Feb 01, 2020 [id number] September 03 0 [facility] DICLOFENAC NA 1% GEL,TOP Discontinued APPLY 2 GRAMS A FFECTED AREA TWO TIMES A DAY NEEDED FOR PAIN AND INFLAMMATION. DO NOT EXCEED 16GM DAILY TO ANY AFFECTED JOINT OF LOWER EXTREMITIES. DO NOT EXCEED 8GM DAILY TO ANY AFFECTED JOINT OF UPPER EXTREMITES. DO NOT EXCEED TOTAL DOSE OF 32GM DAILY FOR ALL JOINTS. 100 Oct 31, 2018 [id number] Oct 06, 2018 ANAYELI KIRKPATRICK [facility] DICLOFENAC NA 1% GEL,TOP APPLY 2 GRAMS A FFECTED AREA TWO TIMES A DAY NEEDED FOR PAIN AND INFLAMMATION. DO NOT EXCEED 16GM DAILY TO ANY AFFECTED JOINT OF LOWER EXTREMITIES. DO NOT EXCEED 8GM DAILY TO ANY AFFECTED JOINT OF UPPER EXTREMITES. DO NOT EXCEED TOTAL DOSE OF 32GM DAILY FOR ALL JOINTS. 100 Jan 17, 2019 [id number] Dec 20, 2018 PAMELA RAMSEY FLUTICASONE PROPIONATE 50MCG/SPRAY SOLN,NASAL,16GM Active INSTILL 1 SPRAY IN EACH NOSTRIL ONCE A DAY SHAKE GENTLY BEFORE USE! - MUST BE USED DIRECTED FOR 3 WEEKS TO PROVIDE BENEFIT. * NO EARLY REFILLS * 1UNIT = 30DAYS AT 4 PF/DAY OR 60DAYS AT 2PF/DAY 2 Dec 19, 2019 [id number] August 26, 2019 PAMELA RAMSEY KETOTIFEN 0.025% SOLN,OPH Active INSTILL 1 DROP IN BOTH EYES TWO TIMES A DAY FOR RELIEF OF ALLERGY SYMPTOMS IN EYE(S) Feb 01, 2020 [id number] September 04, 2019 [facility] LANCET,SOFTCLIX Active USE LANCET BIW FOR TESTING BL OOD GLUCOSE DIRECTED Sep 29, 2020 [id number] Sep 30, 2019 MAURICIO RANKIN LANCET,SOFTCLIX Discontinued USE LANCET BIW FO R TESTING BLOOD GLUCOSE DIRECTED Dec 19, 2019 [id number] Jun 06, 2019 PAMELA RAMSEY LANCET,SOFTCLIX Discontinued USE LANCET BIW FO R TESTING BLOOD GLUCOSE DIRECTED Jul 25, 2019 [id number] Nov 12, 2018 PAMELA RAMSEY LISINOPRIL 40MG TAB Non- [facility] TAKE ONE-HALF TABLET BY MOUTH EVERY MORNING Non-VA Documented by: PAMELA RAMSEY nted at: [facility] LORATADINE/PSEUDOEPHEDRINE TAB,SA Non-VA TAKE BY MOUTH No n-VA Documented by: JUAN LANG nted at: [facility] MAGNESIUM OXIDE 250MG TAB Non-VA TAKE 125 TABLETS BY MOUTH ONCE A DAY Non-VA Documented by: PADMA LONG nted at: [facility] MONTELUKAST NA 10MG TAB Non-VA TAKE ONE TABLET BY MOUTH EVERY EVENING Non-VA Documented by: PAMELA RAMSEY Docume nted at: [facility] OMEPRAZOLE 20MG CAP,EC Active TAKE 2 CAPSULES B Y MOUTH BEFORE BREAKFAST 30 MINUTES BEFORE EATING TO LOWER STOMACH ACID (REPLACES ACIPHEX) 180 Dec 19, 2019 [id number] August 26, 2019 PAMELA RAMSEY POTASSIUM GLUCONATE TAB Non-VA TAKE 595MG BY MOUTH ONCE A DAY N on-VA Documented by: PADMA LONG Docume nted at: [facility] PRASUGREL HCL 10MG TAB N on-VA TAKE ONE TABLET BY MOUTH ONCE A DAY Non-VA Documented by: KATHERINE MATT Docume nted at: [facility] PREGABALIN 150MG CAP,ORAL Non-VA TAKE 1 CAPSULE BY MOUTH TWO TIMES A DAY Non-VA Docume nted by: PAMELA RAMSEY Doccarlos nted at: [facility] PREGABALIN 150MG CAP,ORAL Non-VA TAKE 1 CAPSULE BY MOUTH TWO TIMES A DAY Non-VA Docume nted by: PAMELA RAMSEY Docume nted at: [facility] SEMAGLUTIDE INJ,SOLN Non -VA INJECT SUBCUTANEOUSLY EVERY WEEK Non-VA Documented by: ANAYELI KIRKPATRICK Docume nted at: [facility] TERBINAFINE HCL 1% CREAM,TOP Active APPLY LIGHT LY TO AFFECTED AREA TWO TIMES A DAY FOR INFECTION 90 Sep 23, 2020 [id number] Sep 24, 2019 ADRIEL HERNANDEZ UREA 20% CREAM,TOP Active APPLY LIGHTLY (20%) TO AFFECTED AREA TWO TIMES A DAY NEEDED TO PROMOTE HEALING,RUB IN UNTIL COMPLETELY ABSORBED*FOR TOPICAL USE ONLY* APPLY TO BOTH FEET DIRECTED. 90 Sep 25, 2020 [id number] Sep 26, 2019 ADRIEL HERNANDEZ Problems (Conditions): [...] Alcohol intake above recommended sensible limits Active 156472638 [facility] Allergic conjunctivitis Active 755515313 [facility] Bilateral senile combined form cataracts of eyes Active 75115204223 9108 [facility] Bilateral tinnitus Active [id number] [facility] Coronary arteriosclerosis Active 06104019 September 08, 2014 Entered By: PADMA LONG Comment: hx of ptca to RCA several yrs. agoSeptember 08, 2014 Entered By: PADMA LONG Comment: heart cath 09/01/14, neg. / previous stent to RCA,, via abida meneses ks HATCHER, JENNEY R [facility] Diabetes mellitus Active 73768400 [facility] RAMSE[facility] Disorder of pancreas Active 1635067 September 08, 2014 Entered By: PADMA LONG Comment: 2.5cm low density lseion in bodyMay 2014 Entered By: PADMA LONG Comment: question of communication with pancreatic ductMay 2014 Entered By: PADMA LONG Comment: favored to be cystic pancreatic cancerMay 2014 Entered By: PADMA LONG Comment: per abdominal CT 09/01/14, via abida meneses ks FRAZIER, JAY J [facility] Dry eyes Active 089734864 [facility] Gastro-esophageal reflux disease without esophagitis ( SNOMED CT 083729283) Active 374714301 [facility]F [facility] Hyperlipidemia (SNOMED CT 77168773) Active 94357494 [facility] Lung mass Active 925885427 September 08, 2014 E ntered By: PADMA LONG Comment: 4.5 cm mass, post. segment right upper lobe.September 08, 2014 Entered By: PADMA LONG Comment: mild adenopathy in mediastinum and bilat. hilaMa2014 Entered By: PADMA LONG Comment: most likely related to lung cancerMay 2014 Entered By: PADMA LONG Comment: per ct angio of chest with contrast 09/01/14,via abida menesesdeTom 2014 Entered By: PADMA LONG Comment: per path report- mod. differentiated bronchogenic adenoca. 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 Active 64543001 [facility]ATH[facility]INE M[facility] Obesity Active 085878547 [facility] Obstructive sleep apnea syndrome (SNOMED CT 84478656) Active 619469 015 [facility] Pancreatic cyst Active 22379396 [facility] Papilloma of right eyelid Active 379135643593091 [facility] Polyp of colon Active 61136634 Jan 23 Entered By: PADMA LONG Comment: c-scope 01/17/16, multiple benign colonic polypsJun 28, 2017 Entered By: PADMA LONG Comment: c-scope,06/25/17,[facility], three benign polyps- sigmoid colon, transverse colon,cecum. see path report cprs [facility]ON [facility] Pulmonary emphysema Active 33814254 0 [facility]ANA [facility]IN [facility] Sensorineural hearing loss, bilateral Active 146624704 [facility] Snoring Active 18458882 [facility] Type 2 diabetes mellitus without complication Active 390596232 [facility] Environmental Allergies (ICD-9-CM 477.9) Inactive 477.9 Dec 18, 2017 [facility] External hemorrhoids without mention of complication (ICD-9- CM 455.3) Inactive 455.3 Dec 18, 2017 [facility] Impotence of organic origin (ICD-9-CM 607.84) Inactive 607.84 Dec 18, 2017 [facility] LONG [facility] Screening for Lipoid disorders (ICD-9-CM V77.91) Inactive V77.91 Jan 18, 2007 [facility] Stye * (ICD-9-CM 373.11) Inactive 373.11 Dec 18 8 Jan 18, 2007 Entered By: PADMA LONG Comment: bilat lower lids, chronic/recurrent [facility] Tobacco Use Disorder, Continuous Inactive 305.1 Dec 18, 2017 Jan 18, 2007 Entered By: PADMA LONG Comment: one ppd PADMA LONG [facility] Radiology Reports: +/- 30 days of the encounter No Data Provided for This Section Pathology Reports: +/- 30 days of the encounter No Data Provided for This Section Encounter Notes: All associated encounter notes This section contains the clinical notes associated to the Encounter. Date/Time Encounter Note(s) Provider Source Dec 19, 2018 09:47 AM DIAGNOSTIC STUDY REPORT: LOCAL TITLE: WI-FORM LETTER DIAGNOSTIC RESULTS STANDARD TITLE: DIAGNOSTIC STUDY REPORT DATE OF NOTE: DEC 19, 2018@09:47 ENTRY DATE: DEC 19, 2018@09:47:42 AUTHOR: ANA CELISIGNER: URGENCY: STATUS: COMPLETED Department of [facility] [address] [place] [address] HERBERTH BOB [address] [place] [address], [id number] Nov Dear HERBERTH BOB, The purpose of this letter is to inform you of your test results done recently at the [facility],[place], [place]. Your provider has reviewed your recent labs. Your A1C was elevated at 6.7 meaning you average blood glucose level runs about 137. A copy of these results were sent to Reji Hinojosa for diabetic medication adjustment. Please continue with a diabetic diet and return to the clinic in 3 months for a recheck. Call the [facility] with any questions. LABORATORY Comments: ANA CELIS OC
--- OUTSIDE RECORDS SUMMARY | 2019-11-11 02:23 | XMS REPORT ---
Author Author Department of [facility] HERBERTH kline Organization Department of [facility] Address [address] [place] [address] Phone Unavailable Care Team Providers Care Track Equipment Operator Name Role Phone ADRIEL HERANNDEZ PCP Unavailable Insurance Providers: All historical and current No Data Provided for This Section Selected Encounter This section includes the information on record at [place] for the Encounter. Date/Time Encounter Type Encounter Description Reason Provider Source Dec 17, 2018 09:18 AM Outpatient Encounter COMMUNITY CARE CONSULT [facility] 15 IHE Encounter Template Text not used [...] Appointment Type Appointment Facili ty Name Dec 18, 2018 09:00 AM AMBULATORY - MEDICINE [facility] Dec 18, 2018 10:00 AM AMBULATORY - NONE ARTUR MAYFIELD [facility] Dec 18, 2018 10:01 AM AMBULATORY - NONE [facility] Jan 06, 2019 11:00 AM AMBULATORY - NONE ARTUR MAYFIELD C Jan 31, 2019 09:00 AM AMBULATORY - MEDICINE [facility] Mar 10, 2019 12:30 PM AMBULATORY - SURGERY [facility] Mar 21, 2019 09:15 AM AMBULATORY - NONE [facility] Mar 21, 2019 09:30 AM AMBULATORY - MEDICINE [facility] Mar 21, 2019 09:31 AM AMBULATORY - MEDICINE [facility] Mar 21, 2019 10:00 AM AMBULATORY - MEDICINE [facility] Mar 21, 2019 10:01 AM AMBULATORY - MEDICINE [facility] Mar 26, 2019 10:00 AM AMBULATORY - NONE [facility] MAYFIELD C Apr 03, 2019 10:00 AM AMBULATORY - SURGERY ARTUR CARRASQUILLO Apr 14, 2019 10:00 AM AMBULATORY - SURGERY [facility] Apr 28, 2019 11:00 AM AMBULATORY - NONE [facility] MAYFIELD Surgical Procedures: All associated to the encounter [...] Range Comment Dec 18, 2018 08:45 AM [facility] CBC & DIFF Specimen Type: BLOOD [...] 0.4 % Dec 18, 2018 08:45 AM [facility] COMPREHENSIVE METABOLIC PA KELLE Specimen Type: PLASMA [...] EGFR >60 Dec 18, 2018 08:45 AM [facility] LIPID PROFILE(HDL,TRIG,CHO L,LDL) Specimen Type: PLASMA Comment: For eGFR: eGFR results >60 are imprecise. Many variables affect the calculated result. Interpretation of eGFR results >60 must be monitored over time. CHOLESTEROL 172 mg/dL 0-200 TRIGS 190 mg/dL H 0-150 HDL-CHOLESTEROL 40 mg/dL >40 LDL (CALC) 94 mg/dL 0-99.9 Dec 18, 2018 08:45 AM [facility] PROSTATIC SPECIFIC ANTIGEN (TOTAL) Specimen Type: SERUM [...] Negative Negative Dec 18, 2018 08:45 AM [facility] MICROALBUMIN ([place]) RANDO M URINE Specimen Type: URINE Comment: Microalbumin is below the linearity of the instrument, unable to calculate the albumin/creatinine ratio. *MICROALBUMIN,RAND < 5 ug/mL *MICROALB/CREAT canc mcg/mg cr *PROT/BENEFIT AUTHORIZER RATIO 0.1 *UR PROTEIN 8 mg/dL *UR [...] the patient. The data comes from a [facility] treatment facilities. It does not list Allergies/ADRs that were removed or entered in error. Some allergies/ADRs may be reported in t he Immunization section. Allergen Event Date Event Type Reaction(s) Severity Source [place] September 08, 2014 Propensity to adverse reactions to drug (diso rder) [facility] 15 [place] September 08, 2014 Propensity to adverse reactions to drug (diso rder) [facility] 15 Medications: VA dispensed (-15 months) and Non-VA Documented (Obtained Outside V A) Section Date Range: 1) prescriptions processed by a VA pharmacy in the last 15 m [facility], and 2) all medications recorded in the VA medical record as "non-VA medic ations". Pharmacy terms refer to VA pharmacy's work on prescriptions. VA patient s are advised to take their medications as instructed by their health care team. The data comes from all [place] treatment facilities. Glossary of Pharmacy Terms:Active = A prescription that can be filled at the local [place] pharmacy.Active: On Hold = An active prescription [...] TEST BLOOD GLUCOSE 50 Dec 19, 2019 [id number] September 04, 2019 PAMELA RAMSEY ACCU-CHEK CHARLES PLUS (GLUCOSE) TEST STRIP Discontinued USE 1 STRIP FOR TESTING TWO TIMES PER WEEK - DIRECTED TO TEST BLOOD GLUCOSE 50 Jul 25, 2019 [id number] Nov 12, 2018 PAMELA RAMSEY ALBUTEROL SO4 90MCG/ACTUAT (CFC-F) INHL,ORAL,6.7GM Active INHALE 2 PUFFS BY ORAL INHALATION EVERY 4 HOURS NEEDED FOR BREATHING. SHAKE WELL. RINSE MOUTHPIECE FREQUENTLY TO PREVENT CLOGGING. USE NEEDED FOR SHORTNESS OF AIR/WHEEZING FOR BREATHING. SHAKE WELL. RINSE MOUTHPIECE FREQUENTLY TO PREVENT CLOGGING. USE NEEDED FOR SHORTNESS OF AIR/WHEEZING 1 Dec 19, 2019 [id number] September 04, 2019 PAMELA RAMSEY ALCOHOL PREP PAD Active USE 1 PAD ON SKIN BIW TO CLEAN AND DISINFECT THE SKIN 200 Sep 29, 2020 [id number] Sep 30, 2019 MAURICIO RANKIN [facility] ALCOHOL PREP PAD Discontinued USE 1 PAD ON SKIN BI W TO CLEAN AND DISINFECT THE SKIN 200 Dec 19, 2019 [id number] Jun 06, 2019 PAMELA RAMSEY ALCOHOL PREP PAD Discontinued USE 1 PAD ON SKIN BI W TO CLEAN AND DISINFECT THE SKIN 200 Jul 25, 2019 [id number] Nov 12, 2018 PAMELA RAMSEY ASPIRIN 25MG/DIPYRIDAMOLE 200MG CAP,SA Active T CHAPIN 1 CAPSULE BY MOUTH TWO TIMES A DAY - SWALLOW WHOLE. DO NOT CRUSH OR CHEW. FOR RECURRENT TIA/STROKE 180 Dec 19, 2019 [id number] Dec 20, 2018 PAMELA RAMSEY ASPIRIN 25MG/DIPYRIDAMOLE 200MG CAP,SA Discontinued T CHAPIN 1 CAPSULE BY MOUTH TWO TIMES A DAY - SWALLOW WHOLE. DO NOT CRUSH OR CHEW. FOR RECURRENT TIA/STROKE 180 Feb 06, 2019 [id number] Sep 28, 2018 ZACHARY GRECO [facility] ASPIRIN 81MG TAB,EC Non- VA TAKE ONE TABLET BY MOUTH ONCE A DAY Non-VA Documented by: PADMA LONG nted at: [facility] ATORVASTATIN CA 80MG TAB Active TAKE ONE TABLET BY MOUTH AT BEDTIME FOR CHOLESTEROL - REPORT ANY UNEXPLAINED MUSCLE PAIN/WEAKNESS TO YOUR PROVIDER 90 Dec 19, 2019 [id number] September 04, 2019 PAMELA RAMSEY ATORVASTATIN CA 80MG TAB Discontinued TAKE ONE TABLET BY MOUTH AT BEDTIME FOR CHOLESTEROL - REPORT ANY UNEXPLAINED MUSCLE PAIN/WEAKNESS TO YOUR PROVIDER 90 Dec 20, 2018 [id number] Nov 12, 2018 BRAULIO,[facility]ELA [facility] BUDESONIDE 160MCG/FORMOTEROL FUM 4.5MCG/SPRAY INHL,ORAL,10.2 GM Active INHALE 2 PUFFS BY MOUTH TWO TIMES A DAY FOR BREATHING. SHAKE WELL. RINSE MOUTH AND SPIT AFTER EACH USE. 3 Apr 24, 2020 [id number] August 22, 2019 LISSA OATES [facility] CALCIUM/VITAMIN D TAB No n-VA TAKE BY MOUTH ONCE A DAY Non-V A Documented by: PADMA LONG nted at: [facility] CARBOXYMETHYLCELLULOSE NA 0.5% SOLN,OPH Active INSTILL ONE DROP IN BOTH EYES FOUR TIMES A DAY FOR DRY EYES Feb 01, 2020 [id number] September 03 0 NEDA SHAW [facility] DICLOFENAC NA 1% GEL,TOP Discontinued APPLY 2 GRAMS A FFECTED AREA TWO TIMES A DAY NEEDED FOR PAIN AND INFLAMMATION. DO NOT EXCEED 16GM DAILY TO ANY AFFECTED JOINT OF LOWER EXTREMITIES. DO NOT EXCEED 8GM DAILY TO ANY AFFECTED JOINT OF UPPER EXTREMITES. DO NOT EXCEED TOTAL DOSE OF 32GM DAILY FOR ALL JOINTS. 100 Oct 31, 2018 [id number] Oct 06, 2018 ANAYELI KIRKPATRICK [facility] DICLOFENAC NA 1% GEL,TOP APPLY 2 GRAMS A FFECTED AREA TWO TIMES A DAY NEEDED FOR PAIN AND INFLAMMATION. DO NOT EXCEED 16GM DAILY TO ANY AFFECTED JOINT OF LOWER EXTREMITIES. DO NOT EXCEED 8GM DAILY TO ANY AFFECTED JOINT OF UPPER EXTREMITES. DO NOT EXCEED TOTAL DOSE OF 32GM DAILY FOR ALL JOINTS. 100 Jan 17, 2019 [id number] Dec 20, 2018 PAMELA RAMSEY FLUTICASONE PROPIONATE 50MCG/SPRAY SOLN,NASAL,16GM Active INSTILL 1 SPRAY IN EACH NOSTRIL ONCE A DAY SHAKE GENTLY BEFORE USE! - MUST BE USED DIRECTED FOR 3 WEEKS TO PROVIDE BENEFIT. * NO EARLY REFILLS * 1UNIT = 30DAYS AT 4 PF/DAY OR 60DAYS AT 2PF/DAY 2 Dec 19, 2019 [id number] August 26, 2019 [facility] KETOTIFEN 0.025% SOLN,OPH Active INSTILL 1 DROP IN BOTH EYES TWO TIMES A DAY FOR RELIEF OF ALLERGY SYMPTOMS IN EYE(S) Feb 01, 2020 [id number] September 04, 2019 NEDA SHAW [facility] LANCET,SOFTCLIX Active USE LANCET BIW FOR TESTING BL OOD GLUCOSE DIRECTED 100 Sep 29, 2020 [id number] Sep 30, 2019 MAURICIO RANKIN [facility] LANCET,SOFTCLIX Discontinued USE LANCET BIW FO R TESTING BLOOD GLUCOSE DIRECTED 100 Dec 19, 2019 [id number] Jun 06, 2019 [facility] LANCET,SOFTCLIX Discontinued USE LANCET BIW FO R TESTING BLOOD GLUCOSE DIRECTED 100 Jul 25, 2019 [id number] Nov 12, 2018 [facility] LISINOPRIL 40MG TAB Non- VA TAKE ONE-HALF TABLET BY MOUTH EVERY MORNING Non-VA Documented by: PAMELA RAMSEY nted at: [facility] LORATADINE/PSEUDOEPHEDRINE TAB,SA Non-VA TAKE BY MOUTH No n-VA Documented by: JUAN LANG nted at: ARTUR TERAN [facility] MAGNESIUM OXIDE 250MG TAB [...] ACID (REPLACES ACIPHEX) 180 Dec 19, 2019 [id number] August 26, 2019 PAMELA RAMSEY POTASSIUM GLUCONATE TAB Non-VA TAKE 595MG BY MOUTH ONCE A DAY N on-VA Documented by: PADMA LONG nted at: [facility] PRASUGREL HCL 10MG TAB N on-VA TAKE ONE TABLET BY MOUTH ONCE A DAY Non-VA Documented by: KATHERINE MATT nted at: [facility] PREGABALIN 150MG CAP,ORAL Non-VA TAKE [...] by: ANAYELI KIRKPATRICK Docume nted at: [facility] [place] [facility] TERBINAFINE HCL 1% CREAM,TOP Active APPLY LIGHT LY TO AFFECTED AREA TWO TIMES A DAY FOR INFECTION 90 Sep 23, 2020 [id number] Sep 24, 2019 ADRIEL HERNANDEZ UREA 20% CREAM,TOP Active APPLY LIGHTLY (20%) TO AFFECTED AREA TWO TIMES A DAY NEEDED TO PROMOTE HEALING,RUB IN UNTIL COMPLETELY ABSORBED*FOR TOPICAL USE ONLY* APPLY TO BOTH FEET DIRECTED. 90 Sep 25, 2020 [id number] Sep 26, 2019 ADRIEL EHRNANDEZ Problems (Conditions): All historical and current Section [...] Alcohol intake above recommended sensible limits Active 339978051 PADMA LONG [facility] Allergic conjunctivitis Active 238300678 BRAZORIAFACUNDONEDA J [facility] Bilateral senile combined form cataracts of eyes Active 39898266835 9108 [facility] Luda [facility] Bilateral tinnitus Active 8555695549371 CHASTITY JEAN [facility] Coronary arteriosclerosis Active [id number] September 08, 2014 Entered By: PADMA LONG Comment: hx of ptca to RCA several yrs. agoSeptember 08, 2014 Entered By: PADMA LONG Comment: heart cath 09/01/14, neg. / previous stent to RCA,, [place] HATCHER, JENNEY R [facility] Diabetes mellitus Active 90863971 PAMELA RAMSEY [facility] Disorder of pancreas Active 4275282 September 08, 2014 Entered By: PADMA LONG Comment: 2.5cm low density lseion in bodyMay 2014 Entered By: PADMA LONG Comment: question of communication with pancreatic ductMay 2014 Entered By: PADMA LONG Comment: favored to be cystic pancreatic cancerMay 2014 Entered By: PADMA LONG Comment: per abdominal CT 09/01/14, [place] PADMA LONG [facility] Dry eyes Active 245990857 NEDA SHAW [facility] Gastro-esophageal reflux disease without esophagitis ( SNOMED CT 484260681) Active 980133701 ALF GUEVARA [facility] Hyperlipidemia (SNOMED CT 80019195) Active 76273636 PAMELA RAMSEY [facility] Lung mass Active 349491179 September 08, 2014 E ntered By: PADMA LONG Comment: 4.5 cm mass, post. segment right upper lobe.September 08, 2014 Entered By: PADMA LONG Comment: mild adenopathy in mediastinum and bilat. hilaMay 2014 Entered By: PADMA LONG Comment: most likely related to lung cancerMa2014 Entered By: PADMA LONG Comment: per ct angio of chest with contrast 09/01/14,[place] 2014 Entered By: PADMA LONG Comment: per path report- mod. differentiated bronchogenic adenoca. 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 Obstructive sleep apnea syndrome (SNOMED CT 74094803) Active 923213 015 PHILIPPE DOUGLASS [facility] Pancreatic cyst Active 74986608 JAYLENE GUEVARA [facility] Papilloma of right eyelid Active 902653013330628 NEDA SHAW [facility] Polyp of colon Active 41089119 Jan 23 16 Entered By: PADMA LONG Comment: c-scope 01/17/16, multiple benign colonic polypsMar 2017 Entered By: PADMA LONG Comment: c-scope,06/25/17,[facility], three benign polyps- sigmoid colon, transverse colon,cecum. see path report cprs SHARRON TORRES [facility] Pulmonary emphysema Active 16735730 0 BRIANA LESLYE [facility] Sensorineural hearing loss, bilateral Active 034065360 CHASTITY JEAN [facility] Snoring Active 42707599 S[place] B[place] [facility] Type 2 diabetes mellitus without complication Active 748523914 ENDA SHAW [facility] Environmental Allergies (ICD-9-CM 477.9) Inactive 477.9 Dec 18, 2017 PADMA LONG [facility] External hemorrhoids without mention of complication (ICD-9- CM 455.3) Inactive 455.3 Dec 18, 2017 PADMA LONG [facility] Impotence of organic origin (ICD-9-CM 607.84) Inactive 607.84 Dec 18, 2017 PADMA LONG [facility] Screening for Lipoid disorders (ICD-9-CM V77.91) Inactive V77.91 Jan 18, 2007 PADMA LONG [facility] Stye * (ICD-9-CM 373.11) Inactive 373.11 Dec 18, 8 Jan 18, 2007 Entered By: PADMA LONG Comment: bilat lower lids, chronic/recurrent PADMA LONG [facility] Tobacco Use Disorder, Continuous Inactive 305.1 [...] Encounter. Date/Time Encounter Note(s) Provider Source Dec 17, 2018 09:18 AM NONVA NOTE: LOCAL TITLE: COMMUNITY CARE-SCHEDULING STANDARD TITLE: NONVA NOTE DATE OF NOTE: DEC 17, 2018@09:18 ENTRY DATE: DEC 17, 2018@09:18:32 AUTHOR: ARTIE PUTNAM COSIGNER: URGENCY: STATUS: COMPLETED Patient Centered Community Care (PC3) Program [facility] Choice Approval for Medical Care VA-Form [id number] Certain protected health information (PHI) may be enclosed; specifically information related to Drug Abuse, Alcoholism or Alcohol Abuse, Sickle Cell Anemia, and Human Immunodeficiency Virus (HIV). This specific PHI may NOT be re-disclosed or used by the recipient person or office for any purpose other than that for which the disclosure was made. [Ref. 38 [facility] 7332(b)(2)(H)(ii)] The information is b eing disclosed by [place] only for the treatment and care of the named patient in the health record. Accounting of disclosure must be maintained when required. Referral Urgency: Routine Indicate time frame for appointment: Clinically Indicated Date (GUNNER): Dec Category of Care/Type of Specialty: CARDIOLOGY Type of Specialist: FORESTRY EXTENSION SPECIALIST Type of Service/Procedure: [facility] Office of Community Care - Standardized Episode of Care CARDIOLOGY IMAGING - Cardiology Comprehensive SEOC ID: [id number] [id number] Description: This authorization covers services associated with all medical care listed below as clinically indicated. Duration: 180 days Procedural Overview 1. Initial outpatient evaluation and treatment for the referred condition 2. Diagnostic imaging relevant to the referred condition on the consult 3. Diagnostic studies relevant to the referred condition on the consult 4. Labs and pathology relevant to the referred condition on the consult 5. One cardiac catheterization with PCI interventions and overnight observation if required 6. Pre-procedure medical and cardiac clearance as indicated, to include H +P/labs, EKG, CXR 7. Anesthesia consultation related to the procedure 8. Procedures to include A-fib ablations, implantation of cardiac devices and emergent or urgent surgical interventions such as: cardiac bypass, TAVR, LVAD, angioplasty 9. Inpatient emergent admission post-catheterization for medical/surgical procedure (e.g. CABG) if required including necessary follow up visits in the global period. VA notification is required if emergent procedure is necessary. Please contact your local Community Care office within 72 hours who initiated the outpatient referral so that the appropriate notification can be made on behalf of the [place] 10. Follow-up visits for this episode of care 11. Cardiac rehabilitation, up to 36 visits, no more than 3x per week *Please visit the [facility] Storefront [email or web address].[email or web address]/[email or web address] for additional resources and requirements pertaining to the following Pharmacy prescribing requirements Durable Medical Equipment (DME), Prosthetics, and Orthotics prescribing requirements Precertification (PRCT) process requirements Request for Services (RFS) requirements Number of Visits, Frequency, and Duration: Duration: 180 days or [facility] Preferred Provider Name and Contact Information: Eligibility Verification: As the authorized VA labor representative, I hereby confirm that the [place] is eligible for Community [facility] services. The 's basic eligibility was verified on Nov. Contact the Facility Community Care Office first to provide information to the VA or to reach a VA ordering provider. All contact from the contractor will be documented in the 's record by the [facility] community Care and the VA provider will be notified for awareness. Report all Critical Findings related to this authorization to the issuing office below. All other questions regarding this authorization should be directed to: [phone] [id number] Facility: [facility] Office of Community Care (OCC) Contact: Local [place] Office of Community Care (OCC) Flower Cutter or Equivalent: Name: Yaw Weldon Title: Nurse Flower Cutter [facility] Contact Number (Normal Business Hours): [phone] AOD/Emergency Contact After Hours Number: [phone] From Station Number: [id number] Facility Name: Artur Teran [facility] [address] Address: [address] [place] [address] City: [place] State: [place] Zip: [address] [place] Information: Name: PAULINOHERBERTH JUNG REYES : Jan SSN: [id number] Address: [address] [place] [address] In accordance with 38 CFR 17.6694-7269, [place] will pay for non-VA hospital care and medical services that are authorized by [place] for Veterans who are determined by [place] to meet the [place] Choice Program eligibility criteria set forth by section 101 of the Act and 38 CFR 17.1510 and any other eligibility standards that may apply to particular services (such as health care for newborns of Veterans under 38 CFR 17.38(a)(xiv) and dental benefits under 17.160-17.169). /gisell/ ARTIE PUTNAM MSA Signed: 12/17/2018 09:20 ARTIE PUTNAM [facility]
--- OUTSIDE RECORDS SUMMARY | 2019-11-11 02:23 | XMS REPORT | Encounter Summary ---
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 Date/Time Encounter Type Encounter Description Reason Provider Source Dec 18, 2018 10:00 AM Outpatient Encounter MOVE! PGM INDIV ICD-1 0-CM Z71.3 Dietary counseling and surveillance with Provider Comments: Dietary counseling and surveillance [facility] En[facility] Template Text not used by ME Assessments - Encounter Diagnoses This section includes the primary and secondary diag noses documented for the Encounter. Date/Time Primary/Secondary Diagnosis Diagnosis Name Provider Source Dec 18, 2018 11:23 AM PRIMARY Dietary counseling and rain veillance CHERRIE JONES [facility] Dec 18, 2018 11:23 AM SECONDARY Body mass index (BMI) 31.0 -31.9, adult CHERRIE JONES [facility] Dec 18, 2018 11:23 AM SECONDARY Obesity, unspecified LOREN JONES [facility] Plan of Treatment: Future Appointments (+ 6 months) and Future Tests (+/- 45 day s) The Plan of Treatment section includes future care activities for the patient fr om all [place] treatment facilities. This section includes future appointments and fu ture orders which are active, pending or scheduled. Future Appointments This section includes appointments that were scheduled t o occur 6 months from the date of the Encounter, up to a maximum of 20 appointme nts. The data comes from all [facility]. Appointment Date/Time Appointment Type Appointment Facili ty Name Jan 06, 2019 11:00 AM AMBULATORY - NONE ARTUR BLAS [facility] Jan 31, 2019 09:00 AM AMBULATORY - MEDICINE [facility] Mar 10, 2019 12:30 PM AMBULATORY - SURGERY [facility] Mar 21, 2019 09:15 AM AMBULATORY - NONE [facility] Mar 21, 2019 09:30 AM AMBULATORY - MEDICINE [facility] Mar 21, 2019 09:31 AM AMBULATORY - MEDICINE ARTUR LaresJuan M SIMSMila [facility] Mar 21, 2019 10:00 AM AMBULATORY - MEDICINE [facility] Mar 21, 2019 10:01 AM AMBULATORY - MEDICINE ARTUR BLAS [facility] Mar 26, 2019 10:00 AM [facility] Apr 03, 2019 10:00 AM AMBUL[facility] - SURGERY ARTUR BLAS [facility] Apr 14, 2019 10:00 AM AMBULATORY - SURGERY [facility] Apr 28, 2019 11:00 AM AMBULATORY - NONE ARTUR BLAS [facility] Surgical Procedures: All associated to the encounter No Data Provided for This Section Lab Results: +/- 30 days of the encounter This section includes the Chemistry and Hematology Lab R esults on record with ME for the patient. Radiology Reports and Pathology Report s are provided separately, in subsequent sections. Lab Results This section contains the Chemistry/Hematology Results usha t were resulted 30 days before or 30 days after the date of the Encounter. Date/Time Source Result Type Result - Unit Interpretation Reference Range Comment Dec 18, 2018 08:45 AM [facility] CBC & DIFF Specimen Type: BLOOD No [...] 0.4 % Dec 18, 2018 08:45 AM [facility] COMPREHENSIVE METABOLIC PA KELLE Specimen Type: PLASMA [...] >60 Dec 18, 2018 08:45 AM [facility] LIPID PROFILE(HDL,TRIG,CHO L,LDL) Specimen Type: PLASMA [...] < 5 ug/mL *MICROALB/CREAT canc mcg/mg cr *PROT/DRUM REEL CUTTER RATIO 0.1 *UR PROTEIN 8 mg/dL *UR [...] and tobacco- related health factors from the ME facility where the Encounter took place. Current Smoking Status This section includes the most current smoking, or tobacco -related health factor, from the ME facility where the Encounter took place. Date/Time Current Smoking Status Comment Facility Jun 26, 2018 02:13 PM VA-TOBACCO QUIT 15 YRS OR MORE PORSHA BLAS [facility] Tobacco Use History This section includes a history of the smoking, or tobacco -related health factors, that were collected on or before the date of the Encoun ter. The data comes from the ME facility where the Encounter took place. Date/Time Smoking Status/Tobacco Use Comment [facility] Jun 26, 2018 02:13 PM VA-TOBACCO QUIT 15 YRS OR MORE PORSHA BLAS [facility] Jun 27, 2017 01:39 PM NON-TOBACCO USER ARTUR [place] [facility] Jun 27, 2017 01:16 PM NON-TOBACCO USER ARTUR LaresJuan M CRARASQUILLO C Jan 06, 2015 02:07 PM NON-TOBACCO USER ARTUR LaresJuan M [facility] Nov 23, 2014 10:38 AM NON-TOBACCO USER ARTUR LudaJuan M [facility]O C Oct 26, 2014 10:36 AM NON-TOBACCO USER ARTUR LaresJuan M ROOPA [facility] Oct 14, 2014 11:09 AM NON-TOBACCO USER ARTUR BLAS [facility] C Advance Directives: All historical and current No Data Provided for This Section Allergies and Adverse Reactions (ADRs): All historical and current Section Date Range: From patient's date of to the date document was create d. This section includes Allergies and Adverse Reactions (ADR s) on record with VA for the patient. The data comes from a [facility] treatment facilities. It does not list Allergies/ADRs that were removed or entered in error. Some allergies/ADRs may be reported in t Immunization section. Allergen Event Date Event Type Reaction(s) Severity Source [place] September 08, 2014 Propensity to adverse reactions to drug (diso rder) [facility], [facility]IS[facility] 15 PLAVIX September 08, 2014 Propensity to adverse reactions to drug (diso rder) [facility] Medications: VA dispensed (-15 [...] care team. The data comes from all [place] treatment facilities. Glossary of Pharmacy Terms:Active = A prescription that can be filled at the local VA pharmacy.Active: On Hold = An active prescription that will not be filled until pharmacy resolves the issue.Active: Susp = An active prescription that is not scheduled to be filled yet.Clinic Order = A medication received during a visit to a ME clinic or emergency department (currently not available).Discontinued [...] other providers that was filled outside the [place]. Or, it may be an over the [...] TEST BLOOD GLUCOSE 50 Dec 19, 2019 [id number] September 04, 2019 PAMELA RAMSEY ACCU-CHEK CHARLES PLUS (GLUCOSE) TEST STRIP Discontinued USE 1 STRIP FOR TESTING TWO TIMES PER WEEK - DIRECTED TO TEST BLOOD GLUCOSE 50 Jul 25, 2019 [id number] Nov 12, 2018 PAMELA RAMSEY [facility] ALBUTEROL SO4 90MCG/ACTUAT (CFC-F) INHL,ORAL,6.7GM Active INHALE 2 PUFFS BY ORAL INHALATION EVERY 4 HOURS NEEDED FOR BREATHING. SHAKE WELL. RINSE MOUTHPIECE FREQUENTLY TO PREVENT CLOGGING. USE NEEDED FOR SHORTNESS OF AIR/WHEEZING FOR BREATHING. SHAKE WELL. RINSE MOUTHPIECE FREQUENTLY TO PREVENT CLOGGING. USE NEEDED FOR SHORTNESS OF AIR/WHEEZING Dec 19, 2019 [id number] September 04, 2019 PAMELA RAMSEY ALCOHOL PREP PAD Active USE 1 PAD ON SKIN BIW TO CLEAN AND DISINFECT THE SKIN 200 Sep 29, 2020 [id number] Sep 30, 2019 MAURICIO RANKIN [facility] ALCOHOL PREP PAD Discontinued USE 1 PAD ON SKIN BI W TO CLEAN AND DISINFECT THE SKIN 200 Dec 19, 2019 [id number] Jun 06, 2019 BRAULIOPAMELA [facility] N[facility] ALCOHOL PREP PAD Discontinued USE 1 PAD ON SKIN BI W TO CLEAN AND DISINFECT THE SKIN 200 Jul 25, 2019 [id number] Nov 12, 2018 PAMELA RAMSEY [facility] ASPIRIN 25MG/DIPYRIDAMOLE 200MG CAP,SA Active T CHAPIN 1 CAPSULE BY MOUTH TWO TIMES A DAY - SWALLOW WHOLE. DO NOT CRUSH OR CHEW. FOR RECURRENT TIA/STROKE 180 Dec 19, 2019 [id number] Dec 20, 2018 PAMELA RAMSEY ASPIRIN 25MG/DIPYRIDAMOLE 200MG CAP,SA Discontinued T CHAPIN 1 CAPSULE BY MOUTH TWO TIMES A DAY - SWALLOW WHOLE. DO NOT CRUSH OR CHEW. FOR RECURRENT TIA/STROKE 180 Feb 06, 2019 [id number] Sep 28, 2018 ZACHARY GRECO [facility] ASPIRIN 81MG TAB,EC Non- VA TAKE ONE TABLET BY MOUTH ONCE A DAY Non-VA Documented by: PADMA LONG nted at: [facility] ATORVASTATIN CA 80MG TAB Active TAKE ONE TABLET BY MOUTH AT BEDTIME FOR CHOLESTEROL - REPORT ANY UNEXPLAINED MUSCLE PAIN/WEAKNESS TO YOUR PROVIDER 90 Dec 19, 2019 [id number] September 04, 2019 PAMELA RAMSEY ATORVASTATIN CA 80MG TAB Discontinued TAKE ONE TABLET BY MOUTH AT BEDTIME FOR CHOLESTEROL - REPORT ANY UNEXPLAINED MUSCLE PAIN/WEAKNESS TO YOUR PROVIDER 90 Dec 20, 2018 [id number] Nov 12, 2018 PAMELA RAMSEY BUDESONIDE 160MCG/FORMOTEROL FUM 4.5MCG/SPRAY INHL,ORAL,10.2 GM Active INHALE 2 PUFFS BY MOUTH TWO TIMES A DAY FOR BREATHING. SHAKE WELL. RINSE MOUTH AND SPIT AFTER EACH USE. 3 Apr 24, 2020 [id number] August 22, 2019 LISSA OATES [facility] CALCIUM/VITAMIN D TAB No n-VA TAKE BY MOUTH ONCE A DAY Non-V A Documented by: PADMA LONG nted at: [facility] CARBOXYMETHYLCELLULOSE NA 0.5% SOLN,OPH Active INSTILL ONE DROP IN BOTH EYES FOUR TIMES A DAY FOR DRY EYES 15 Feb 01, 2020 [id number] September 03 0 [facility] DICLOFENAC NA 1% GEL,TOP Discontinued APPLY 2 GRAMS A FFECTED AREA TWO TIMES A DAY NEEDED FOR PAIN AND INFLAMMATION. DO NOT EXCEED 16GM DAILY TO ANY AFFECTED JOINT OF LOWER EXTREMITIES. DO NOT EXCEED 8GM DAILY TO ANY AFFECTED JOINT OF UPPER EXTREMITES. DO NOT EXCEED TOTAL DOSE OF 32GM DAILY FOR ALL JOINTS. 100 Oct 31, 2018 [id number] Oct 06, 2018 ANAYELI KIRKPATRICK Luda Juan M SIMSMila [facility] DICLOFENAC NA 1% GEL,TOP APPLY 2 GRAMS A FFECTED AREA TWO TIMES A DAY NEEDED FOR PAIN AND INFLAMMATION. DO NOT EXCEED 16GM DAILY TO ANY AFFECTED JOINT OF LOWER EXTREMITIES. DO NOT EXCEED 8GM DAILY TO ANY AFFECTED JOINT OF UPPER EXTREMITES. DO NOT EXCEED TOTAL DOSE OF 32GM DAILY FOR ALL JOINTS. 100 Jan 17, 2019 [id number] Dec 20, 2018 PAMELA RAMSEY FLUTICASONE PROPIONATE 50MCG/SPRAY SOLN,NASAL,16GM Active INSTILL 1 SPRAY IN EACH NOSTRIL ONCE A DAY SHAKE GENTLY BEFORE USE! - MUST BE USED DIRECTED FOR 3 WEEKS TO PROVIDE BENEFIT. * NO EARLY REFILLS * 1UNIT = 30DAYS AT 4 PF/DAY OR 60DAYS AT 2PF/DAY 2 Dec 19, 2019 [id number] August 26, 2019 PAMELA RAMSEY KETOTIFEN 0.025% SOLN,OPH Active INSTILL 1 DROP IN BOTH EYES TWO TIMES A DAY FOR RELIEF OF ALLERGY SYMPTOMS IN EYE(S) 10 Feb 01, 2020 [id number] September 04, 2019 [facility] LANCET,SOFTCLIX Active USE LANCET BIW FOR TESTING BL OOD GLUCOSE DIRECTED 100 Sep 29, 2020 [id number] Sep 30, 2019 MAURICIO RANKIN [facility] LANCET,SOFTCLIX Discontinued USE LANCET BIW FO R TESTING BLOOD GLUCOSE DIRECTED 100 Dec 19, 2019 [id number] Jun 06, 2019 PAMELA RAMSEY [facility] LANCET,SOFTCLIX Discontinued USE LANCET BIW FO R TESTING BLOOD GLUCOSE DIRECTED 100 Jul 25, 2019 [id number] Nov 12, 2018 PAMELA RAMSEY LISINOPRIL 40MG TAB Non- VA TAKE ONE-HALF TABLET BY MOUTH EVERY MORNING Non-VA Documented by: PAMELA RAMSEY nted at: [facility] LORATADINE/PSEUDOEPHEDRINE TAB,SA Non-VA TAKE BY MOUTH No n-VA Documented by: JUAN LANGume nted at: [facility] MAGNESIUM OXIDE 250MG TAB Non-VA [...] ACID (REPLACES ACIPHEX) 180 Dec 19, 2019 [id number] August 26, 2019 PAMELA RAMSEY POTASSIUM GLUCONATE TAB Non-VA TAKE 595MG BY MOUTH ONCE A DAY N on-VA Documented by: PADMA LONG nted at: [facility] PRASUGREL HCL 10MG TAB N on-VA TAKE ONE TABLET BY MOUTH ONCE A DAY Non-VA Documented by: KATHERINE MATTume nted at: [facility] PREGABALIN 150MG CAP,ORAL Non-VA TAKE 1 CAPSULE BY MOUTH TWO TIMES A DAY Non-VA Docume nted by: PAMELA RAMSEY nted at: [facility] PREGABALIN 150MG CAP,ORAL Non-VA TAKE 1 CAPSULE BY MOUTH TWO TIMES A DAY Non-VA Docume nted by: PAMELA RAMSEY nted at: [facility] SEMAGLUTIDE INJ,SOLN Non -VA INJECT SUBCUTANEOUSLY EVERY WEEK Non-VA Documented by: ANAYELI KIRKPATRICK Docume nted at: [facility] TERBINAFINE HCL 1% CREAM,TOP Active APPLY LIGHT LY TO AFFECTED AREA TWO TIMES A DAY FOR INFECTION 90 Sep 23, 2020 [id number] Sep 24, 2019 ADRIEL HERNANDEZ [facility] UREA 20% CREAM,TOP Active APPLY LIGHTLY (20%) TO AFFECTED AREA TWO TIMES A DAY NEEDED TO PROMOTE HEALING,RUB IN UNTIL COMPLETELY ABSORBED*FOR TOPICAL USE ONLY* APPLY TO BOTH FEET DIRECTED. 90 Sep 25, 2020 [id number] Sep 26, 2019 ADRIEL HERNANDEZ [facility] Problems (Conditions): All historical and current Section Date Range: From patient's date of to the date document was create d. This section includes a list of Problems (Conditions) know n to VA for the patient. It includes both active and inacti ve problems (conditions). The data comes from all [place] treatment facilities. Problem Status Problem Code Date of Onset Date of Resolution Comm ent(s) Provider Source Alcohol intake above recommended sensible limits Active 061052485 PADMA LONG [facility] Allergic conjunctivitis Active 948246620 BENEDICTNEDA [facility] Bilateral senile combined form cataracts of eyes Active 54728956362 9108 BENEDICTNEDA [facility] Bilateral tinnitus Active 6653723702470 CHASTITY JEAN [facility] Coronary arteriosclerosis Active 87853947 September 08, 2014 Entered By: PADMA LONG Comment: hx of ptca to RCA several yrs. agoSeptember 08, 2014 Entered By: PADMA LONG Comment: heart cath 09/01/14, neg. / previous stent to RCA,, via abida menesesga KALA JONES [facility] Diabetes mellitus Active 82855210 PAMELA RAMSEY [facility] Disorder of pancreas Active 5663341 September 08, 2014 Entered By: PADMA LONG Comment: 2.5cm low density lseion in bodyMay 2014 Entered By: PADMA LONG Comment: question of communication with pancreatic ductMay 2014 Entered By: PADMA LONG Comment: favored to be cystic pancreatic [email or web address] Entered By: PADMA LONG Comment: per abdominal CT 09/01/14, via abida meneses,ga PADMA LONG [facility] Dry eyes [facility] 739677904 [facility] Gastro-esophageal reflux disease without esophagitis ( SNOMED CT 424372674) Active 190828938 [facility] Hyperlipidemia (SNOMED CT 25183540) Active 07746801 BRAULIOPAMELA [facility] Lung mass Active 642395686 September 08, 2014 E ntered By: PADMA LONG Comment: 4.5 cm mass, post. segment right upper lobe.September 08, 2014 Entered By: PADMA LONG Comment: mild adenopathy in mediastinum and bilat. [email or web address] Entered By: PADMA LONG Comment: most likely related to lung [email or web address] Entered By: PADMA LNOG Comment: per ct angio of chest with contrast 09/01/14,[facility] Entered By: PADMA LONG Comment: per path report- mod. differentiated bronchogenic adenoca. 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 Active 53545815 KATHERINE MATT [facility] Obesity Active 063496176 [facility] Obstructive sleep apnea syndrome (SNOMED CT 38975846) Active 730074 015 PHILIPPE DOUGLASS [facility] Pancreatic cyst Active 58624022 [facility] Papilloma of right eyelid Active 991025165804099 NEDA SHAW [facility] Polyp of colon Active 03281962 Jan 23 16 Entered By: PADMA LONG Comment: c-scope 01/17/16, multiple benign colonic polypsJun 28, 2017 Entered By: PADMA LONG Comment: c-scope,06/25/17,[facility], three benign polyps- sigmoid colon, transverse colon,cecum. see path report cprs SHARRON TORRES [facility] Pulmonary emphysema Active 38929726 0 BRIANA GAVIN [facility] Sensorineural hearing loss, bilateral Active 580716479 CHASTITY JEAN [facility] Snoring Active 21661855 QU[place]N BULLOCKIR ARTUR [place] [facility] Type 2 diabetes mellitus without complication Active 994216124 COLINNEDA Luda [place] [facility] Environmental Allergies (ICD-9-CM 477.9) Inactive 477.9 Dec 18, 2017 [facility] External hemorrhoids without mention of complication (ICD-9- CM 455.3) Inactive 455.3 Dec 18, 2017 [facility] Impotence of organic origin (ICD-9-CM 607.84) Inactive 607.84 Dec 18, 2017 [facility] Screening for Lipoid disorders (ICD-9-CM V77.91) Inactive V77.91 Jan 18, 2007 PADMA LONG Juan M [facility] Stye * (ICD-9-CM 373.11) Inactive 373.11 Dec 18 8 Jan 18, 2007 Entered By: PADMA LONG Comment: bilat lower lids, chronic/recurrent [facility] Tobacco Use Disorder, Continuous Inactive 305.1 Dec 18, 2017 Jan 18, 2007 Entered By: PADMA LONG Comment: one ppd PADMA LONG [facility] Radiology Reports: +/- 30 days of the encounter No Data Provided for This Section Pathology Reports: +/- 30 days of the encounter No Data Provided for This Section Encounter Notes: All associated encounter notes This section contains the clinical notes associated to the Encounter. Date/Time Encounter Note(s) Provider Source Dec 18, 2018 11:24 AM MOVE NOTE: LOCAL TITLE: WI-WEIGHT MANAGEMENT/MOVE! OUTPATIENT INDIVIDUAL STANDARD TITLE: MOVE NOTE DATE OF NOTE: DEC 18, 2018@11:24 ENTRY DATE: DEC 18, 2018@11:26:46 AUTHOR: GARY HARRINGTON COSIGNER: URGENCY: STATUS: COMPLETED WI-NUTRITION, MEDICAL THERAPY Location: Outpatient Type: Follow Up Telehealth Medical Diagnosis: Z71.3, obesity; DM2 NUTRITION ASSESSMENT Unresolved Anthropometric Measurements Height: 71 in [180.3 cm] (12/18/2018 08:34) Weight: 102.59 kg. [225.7 lb.] (DEC 18, 2018@08:34:55) Weight change: Up ~ 7# in past 2.5 months. Body mass index (BMI): 31.5 Biochemical Data, Medical Tests and Procedures (BD) Glucose/endocrine profile: Hemoglobin A1C(HgbA1C) Subjective Data: Patient in [place] states: He's really been under a lot of stress lately and hasn't been eating very well-money issues and cat in hospital; has been eating a lot of fruit and eating very little meat; eating beans and nuts for protein and Atkins protein bars and shakes; "just polished off a 4# bag of M&M's last night"-has been eating on this for past month; this morning's bs was 127-"unually in the 's"; was started on BP meds about 2-3 months ago; was started on Ozembic and Metformin was stopped recently-bs's are doing well; has a treadmill and elyptical and plans to start using them again. NUTRITION DIAGNOSTIC Problem/Etiology/Symptoms: Class I obesity related to hx of decreased physical activity and emotional eating tendencies as evidenced by BMI of 31. NUTRITION INTERVENTION Goals: 1) Carb goals: Meals = 30-45 gms; Snacks = 5-15 gms. 2) Use elyptical and treadmill 3x/wk = increase gradually. NUTRITION MONITORING/EVALUATION Anthropometric Measurements Weight change Body mass index (BMI) Biochemical Data, Medical Tests and Procedures Glucose/endocrine profile PID: 03/26 @ 10am with NK via CVT. Contact information for Registered Dietitian provided. Time spent with patient 30 minutes. /gisell/ GARY BRIDGES,RD,LD,CDE CLINICAL DIETITIAN Signed: 12/18/2018 11:41 GARY HARRINGTON [facility]
--- OUTSIDE RECORDS SUMMARY | 2019-11-11 02:24 | XMS REPORT | Encounter Summary ---
Author Author Department of [facility] rsHERBERTH Organization Department of [facility] Affai rs Address [address] [place] [address] Phone Unavailable Care Team Providers Care Purchasing/Receiving Name Role Phone ADRIEL HERNANDEZ PCP Unavailable Insurance Providers: All historical and current No Data Provided for This Section Selected Encounter This section includes the information on record at [place] for the Encounter. Date/Time Encounter Type Encounter Description Reason Provider Source Dec 05, 2018 12:04 PM Outpatient Encounter TELEPHONE BY STAFF ICD-10-CM I25.10 Athscl heart disease of [place] coronary artery w/o jaden muñoz with Provider Comments: Atherosclerotic Heart Disease of [place] Coronary Artery without Angina Pectoris KALA JONES [facility] IHE Encounter Template Text not used by [place] Assessments - Encounter Diagnoses This section includes the primary and secondary diag noses documented for the Encounter. Date/Time Primary/Secondary Diagnosis Diagnosis Name Provider Source Dec 05, 2018 12:04 PM PRIMARY Athscl heart disea se of [place] coronary artery w/o jaden pctKALA Hammond [facility] Plan of Treatment: Future Appointments (+ 6 months) and Future Tests (+/- 45 day s) The Plan of Treatment section includes future care activities for the patient fr om all [place] treatment facilities. This section includes future appointments and fu ture orders which are active, pending or scheduled. Future Appointments This section includes appointments that were scheduled t o occur 6 months from the date of the Encounter, up to a maximum of 20 appointme nts. The data comes from all [facility]. Appointment Date/Time Appointment Type Appointment Facili ty Name Dec 18, 2018 09:00 AM AMBULATORY - MEDICINE [facility] Dec 18, 2018 10:00 [facility] Dec 18, 2018 10:01 AM AMBULATORY - NONE [facility] Jan 06, 2019 11:00 AM [facility] Jan 31, 2019 09:00 AM AM[facility]ULATORY - MEDICINE [facility] Mar 10, 2019 12:30 PM AMBULATORY - SURGERY [facility] Mar 21, 2019 09:15 AM AMBULATORY - NONE [facility] Mar 21, 2019 09:30 AM AMBULATORY - MEDICINE [facility] Mar 21, 2019 09:31 AM AMBULATORY - MEDICINE ARTUR LaresJuan M SIMSMila [facility] Mar 21, 2019 10:00 AM AMBULATORY - MEDICINE [facility] Mar 21, 2019 10:01 AM AMBULATORY - MEDICINE ARTUR LaresJuan M [facility] Mar 26, 2019 10:00 AM [facility] Apr 03, 2019 10:00 AM AMBULATORY - SURGERY [facility] Apr 14, 2019 10:00 AM AMBULATORY - SURGERY [facility] Apr 28, 2019 11:00 AM AMBULATORY - NONE [facility] Surgical Procedures: All associated to the encounter No Data Provided for This Section Lab Results: +/- 30 days of the encounter This section includes the Chemistry and Hematology Lab R esults on record with [place] for the patient. Radiology Reports and Pathology Report s are provided separately, in subsequent sections. Lab Results This section contains the Chemistry/Hematology Results usha t were resulted 30 days before or 30 days after the date of the Encounter. Date/Time Source Result Type Result - Unit Interpretation Reference Range Comment Dec 18, 2018 08:45 AM [facility] CBC & DIFF Specimen Type: BLOOD No [...] % Dec 18, 2018 08:45 AM [facility] COMPREHENSIVE METABOLIC PA KELLE Specimen Type: PLASMA [...] >60 Dec 18, 2018 08:45 AM [facility] LIPID PROFILE(HDL,TRIG,CHO L,LDL) Specimen Type: PLASMA Comment: [...] < 5 ug/mL *MICROALB/CREAT canc mcg/mg cr *PROT/FINANCE PROFESSOR RATIO 0.1 *UR PROTEIN 8 mg/dL *UR [...] or tobacco -related health factor, from the [place] facility where the Encounter took place. Date/Time Current Smoking Status Comment Facility Jun 26, 2018 02:13 PM VA-TOBACCO QUIT 15 YRS OR MORE [facility] Tobacco Use History This section includes a history of the smoking, or tobacco -related health factors, that were collected on or before the date of the Encoun ter. The data comes from the [place] facility where the Encounter took place. Date/Time Smoking Status/Tobacco Use Comment [facility] Jun 26, 2018 02:13 PM VA-TOBACCO QUIT 15 YRS OR MORE [facility] Jun 27, 2017 01:39 PM NON-TOBACCO USER [facility] LaresJuan M [facility] Jun 27, 2017 01:16 PM NON-TOBACCO USER [facility] Jan 06, 2015 02:07 PM NON-TOBACCO USER [facility] Nov 23, 2014 10:38 AM NON-TOBACCO USER [facility] LaresJuan M [facility] Oct 26, 2014 10:36 AM NON-TOBACCO USER [facility] LaresJuan M [facility] Oct 14, 2014 11:09 AM NON-TOBACCO USER [facility] LaresJuan M [facility] Advance Directives: All historical and current No Data Provided for This Section Allergies and Adverse Reactions (ADRs): All historical and current Section Date Range: From patient's date of to the date document was create d. This section includes Allergies and Adverse Reactions (ADR s) on record with [facility] for the patient. The data comes from a [facility] treatment facilities. It does not list [...] to drug (diso rder) [facility] Medications: VA dispensed (-15 months) [...] care team. The data comes from all [place] treatment facilities. Glossary of Pharmacy Terms:Active = A prescription that can be filled at the local [facility] pharmacy.Active: On Hold = An active prescription that will not be filled until pharmacy resolves the issue.Active: Susp = An active prescription that is not scheduled to be filled yet.Clinic Order = A medication received during a visit to a [place] clinic or emergency department (currently not available).Discontinued [...] may be a prescription from either the [place] or other providers that was filled outside the [place]. Or, it may be an over the [...] TEST BLOOD GLUCOSE 50 Dec 19, 2019 [id number] September 04, 2019 PAMELA RAMSEY ACCU-CHEK CHARLES PLUS (GLUCOSE) TEST STRIP Discontinued USE 1 STRIP FOR TESTING TWO TIMES PER WEEK - DIRECTED TO TEST BLOOD GLUCOSE 50 Jul 25, 2019 [id number] Nov 12, 2018 PAMELA RAMSEY CB ALBUTEROL SO4 90MCG/ACTUAT (CFC-F) INHL,ORAL,6.7GM Active INHALE 2 PUFFS BY ORAL INHALATION EVERY 4 HOURS NEEDED FOR BREATHING. SHAKE WELL. RINSE MOUTHPIECE FREQUENTLY TO PREVENT CLOGGING. USE NEEDED FOR SHORTNESS OF AIR/WHEEZING FOR BREATHING. SHAKE WELL. RINSE MOUTHPIECE FREQUENTLY TO PREVENT CLOGGING. USE NEEDED FOR SHORTNESS OF AIR/WHEEZING 1 Dec 19, 2019 [id number] September 04, 2019 PAMELA RAMSEY ALCOHOL PREP PAD Active USE 1 PAD ON SKIN BIW TO CLEAN AND DISINFECT THE SKIN 200 Sep 29, 2020 [id number] Sep 30, 2019 [facility] ALCOHOL PREP PAD Discontinued USE 1 PAD ON SKIN BI W TO CLEAN AND DISINFECT THE SKIN 200 Dec 19, 2019 [id number] Jun 06, 2019 BRAULIOPAMELA TOMAS [facility] ALCOHOL PREP PAD Discontinued USE 1 PAD ON SKIN BI W TO CLEAN AND DISINFECT THE SKIN 200 Jul 25, 2019 [id number] Nov 12, 2018 BRAULIOPAMELA [facility] ASPIRIN 25MG/DIPYRIDAMOLE 200MG CAP,SA Active T CHAPIN 1 CAPSULE BY MOUTH TWO TIMES A DAY - SWALLOW WHOLE. DO NOT CRUSH OR CHEW. FOR RECURRENT TIA/STROKE 180 Dec 19, 2019 [id number] Dec 20, 2018 BRAULIOPAMELA [facility] ASPIRIN 25MG/DIPYRIDAMOLE 200MG CAP,SA Discontinued T CHAPIN 1 CAPSULE BY MOUTH TWO TIMES A DAY - SWALLOW WHOLE. DO NOT CRUSH OR CHEW. FOR RECURRENT TIA/STROKE 180 Feb 06, 2019 [id number] Sep 28, 2018 ZACHARY GRECO [facility] ASPIRIN 81MG TAB,EC Non- [facility] TAKE ONE TABLET BY MOUTH ONCE A DAY Non-VA Documented by: PADMA LONG nted at: [facility] ATORVASTATIN CA 80MG TAB Active TAKE ONE TABLET BY MOUTH AT BEDTIME FOR CHOLESTEROL - REPORT ANY UNEXPLAINED MUSCLE PAIN/WEAKNESS TO YOUR PROVIDER 90 Dec 19, 2019 [id number] September 04, 2019 PAMELA RAMSEY ATORVASTATIN CA 80MG TAB Discontinued TAKE ONE TABLET BY MOUTH AT BEDTIME FOR CHOLESTEROL - REPORT ANY UNEXPLAINED MUSCLE PAIN/WEAKNESS TO YOUR PROVIDER 90 Dec 20, 2018 [id number] Nov 12, 2018 PAMELA RAMSEY BUDESONIDE 160MCG/FORMOTEROL FUM 4.5MCG/SPRAY INHL,ORAL,10.2 GM Active INHALE 2 PUFFS BY MOUTH TWO TIMES A DAY FOR BREATHING. SHAKE WELL. RINSE MOUTH AND SPIT AFTER EACH USE. 3 Apr 24, 2020 [id number] August 22, 2019 LISSA OATES [facility] CALCIUM/VITAMIN D TAB No n-VA TAKE BY MOUTH ONCE A DAY Non-V A Documented by: PADMA LONG nted at: [facility] CARBOXYMETHYLCELLULOSE NA 0.5% SOLN,OPH Active INSTILL ONE DROP IN BOTH EYES FOUR TIMES A DAY FOR DRY EYES 15 Feb 01, 2020 [id number] September 03 0 [facility] DICLOFENAC NA 1% GEL,TOP Discontinued APPLY 2 GRAMS A FFECTED AREA TWO TIMES A DAY NEEDED FOR PAIN AND INFLAMMATION. DO NOT EXCEED 16GM DAILY TO ANY AFFECTED JOINT OF LOWER EXTREMITIES. DO NOT EXCEED 8GM DAILY TO ANY AFFECTED JOINT OF UPPER EXTREMITES. DO NOT EXCEED TOTAL DOSE OF 32GM DAILY FOR ALL JOINTS. 100 Oct 31, 2018 [id number] Oct 06, 2018 ANAYELI KIRKPATRICK [facility] DICLOFENAC NA 1% GEL,TOP APPLY 2 GRAMS A FFECTED AREA TWO TIMES A DAY NEEDED FOR PAIN AND INFLAMMATION. DO NOT EXCEED 16GM DAILY TO ANY AFFECTED JOINT OF LOWER EXTREMITIES. DO NOT EXCEED 8GM DAILY TO ANY AFFECTED JOINT OF UPPER EXTREMITES. DO NOT EXCEED TOTAL DOSE OF 32GM DAILY FOR ALL JOINTS. 100 Jan 17, 2019 [id number] Dec 20, 2018 PAMELA RAMSEY FLUTICASONE PROPIONATE 50MCG/SPRAY SOLN,NASAL,16GM Active INSTILL 1 SPRAY IN EACH NOSTRIL ONCE A DAY SHAKE GENTLY BEFORE USE! - MUST BE USED DIRECTED FOR 3 WEEKS TO PROVIDE BENEFIT. * NO EARLY REFILLS * 1UNIT = 30DAYS AT 4 PF/DAY OR 60DAYS AT 2PF/DAY 2 Dec 19, 2019 [id number] August 26, 2019 PAMELA RAMSEY KETOTIFEN 0.025% SOLN,OPH Active INSTILL 1 DROP IN BOTH EYES TWO TIMES A DAY FOR RELIEF OF ALLERGY SYMPTOMS IN EYE(S) Feb 01, 2020 [id number] September 04, 2019 [facility] LANCET,SOFTCLIX Active USE LANCET BIW FOR TESTING BL OOD GLUCOSE DIRECTED Sep 29, 2020 [id number] Sep 30, 2019 MAURICIO RANKIN LANCET,SOFTCLIX Discontinued USE LANCET BIW FO R TESTING BLOOD GLUCOSE DIRECTED Dec 19, 2019 [id number] Jun 06, 2019 [facility] LANCET,SOFTCLIX Discontinued USE LANCET BIW FO R TESTING BLOOD GLUCOSE DIRECTED 100 Jul 25, 2019 [id number] Nov 12, 2018 PAMELA RAMSEY LISINOPRIL 40MG TAB Non- [place] TAKE ONE-HALF TABLET BY MOUTH EVERY MORNING Non-VA Documented by: PAMELA RAMSEY nted at: [facility] LORATADINE/PSEUDOEPHEDRINE TAB,SA Non-VA TAKE BY MOUTH No n-VA Documented by: JUAN LANGume nted at: [facility] MAGNESIUM OXIDE 250MG TAB Non-VA TAKE [...] ACID (REPLACES ACIPHEX) 180 Dec 19, 2019 [id number] August 26, 2019 PAMELA RAMSEY POTASSIUM GLUCONATE TAB Non-VA TAKE 595MG BY MOUTH ONCE A DAY N on-VA Documented by: PADMA LONG nted at: [facility] PRASUGREL HCL 10MG TAB N on-VA TAKE ONE TABLET BY MOUTH ONCE A DAY Non-VA Documented by: KATHERINE MATTume nted at: [facility] PREGABALIN 150MG CAP,ORAL Non-VA TAKE 1 CAPSULE BY MOUTH TWO TIMES A DAY Non-VA Docume nted by: PAMELA RAMSEY nted at: [facility] PREGABALIN 150MG CAP,ORAL Non-VA TAKE 1 CAPSULE BY MOUTH TWO TIMES A DAY Non-VA Docume nted by: PAMELA RAMSEY nted at: [facility] SEMAGLUTIDE INJ,SOLN Non -VA INJECT SUBCUTANEOUSLY EVERY WEEK Non-VA Documented by: ANAYELI KIRKPATRICK Docume nted at: [facility] TERBINAFINE HCL 1% CREAM,TOP Active APPLY LIGHT LY TO AFFECTED AREA TWO TIMES A DAY FOR INFECTION 90 Sep 23, 2020 [id number] Sep 24, 2019 ADRIEL HERNANDEZ UREA 20% CREAM,TOP Active APPLY LIGHTLY (20%) TO AFFECTED AREA TWO TIMES A DAY NEEDED TO PROMOTE HEALING,RUB IN UNTIL COMPLETELY ABSORBED*FOR TOPICAL USE ONLY* APPLY TO BOTH FEET DIRECTED. 90 Sep 25, 2020 [id number] Sep 26, 2019 MARYADRIEL CB Problems (Conditions): All historical and current Section Date Range: From patient's date of to the date document was create d. This section includes a list of Problems (Conditions) know n to [place] for the patient. It includes both active and inacti ve problems (conditions). The data comes from all [place] treatment facilities. Problem Status Problem Code Date of Onset Date of Resolution Comm ent(s) Provider Source Alcohol intake above recommended sensible limits Active [id number] PADMA LONG [facility] Allergic conjunctivitis Active 439845408 [facility] Bilateral senile combined form cataracts of eyes Active 11309658411 9108 [place] [facility] Bilateral tinnitus Active [id number] CHASTITY JEAN [facility] Coronary arteriosclerosis Active 74782821 September 08, 2014 Entered By: PADMA LONG Comment: hx of ptca to RCA several yrs. agoSeptember 08, 2014 Entered By: PADMA LONG Comment: heart cath 09/01/14, neg. / previous stent to RCA,, via abida menesesnh KALA JONES [facility] Diabetes mellitus Active 34131407 PAMELA RAMSEY [facility] Disorder of pancreas Active 3053106 September 08, 2014 Entered By: PADMA LONG Comment: 2.5cm low density lseion in bodyMay 2014 Entered By: PADMA LONG Comment: question of communication with pancreatic ductMay 2014 Entered By: PADMA LONG Comment: favored to be cystic pancreatic cancerMa2014 Entered By: PADMA LONG Comment: per abdominal CT 09/01/14, via abida meneses,nh PADMA LONG [facility] Dry eyes Active 350046367 [facility] Gastro-esophageal reflux disease without esophagitis ( SNOMED CT 868436956) Active 657058005 ALF GUEVARA [facility] Hyperlipidemia (SNOMED CT 83120337) Active 91128553 PAMELA RAMSEY [facility] Lung mass Active 284011617 September 08, 2014 E ntered By: PADMA [...] uncertain behavior of skin of eyelid Active 81184395 KATHERINE MATT [facility] Obesity Active 445257217 [place] Obstructive sleep apnea syndrome (SNOMED CT 33325095) Active 010323 015 [facility] Pancreatic cyst Active 64148494 JAYLENE GUEVARA [facility] Papilloma of right eyelid Active 111491037768411 [facility] SH[facility] Polyp of colon Active 10506061 Jan 23 16 Entered By: PADMA LONG Comment: c-scope 01/17/16, multiple benign colonic polypsJun 28, 2017 Entered By: PADMA LONG Comment: c-scope,06/25/17[facility], three benign polyps- sigmoid colon, transverse colon,cecum. see path report [facility] Pulmonary emphysema Active 12770779 0 BRIANA [place] [facility] Sensorineural hearing loss, bilateral Active 113217425 CHASTITY JEAN [facility] Snoring Active 83802895 [place] [facility] Type 2 diabetes mellitus without complication Active 218959428 [facility] Environmental Allergies (ICD-9-CM 477.9) Inactive 477.9 Dec 18, 2017 [facility] External hemorrhoids without mention of complication (ICD-9- CM 455.3) Inactive 455.3 Dec 18, 2017 [facility] Impotence of organic origin (ICD-9-CM 607.84) Inactive 607.84 Dec 18, 2017 [facility] Screening for Lipoid disorders (ICD-9-CM V77.91) Inactive V77.91 Jan 18, 2007 [facility] Stye * (ICD-9-CM 373.11) Inactive 373.11 Dec 18, 201 8 Jan 18, 2007 Entered By: PADMA LONG Comment: bilat lower lids, chronic/recurrent PADMA LONG Juan M BLAS [facility] Tobacco Use Disorder, Continuous Inactive 305.1 Dec 18, 2017 Jan 18, 2007 Entered By: PADMA LONG Comment: one ppd PADMA LONG [facility] Radiology Reports: +/- 30 days of the encounter No Data Provided for This Section Pathology Reports: +/- 30 days of the encounter No Data Provided for This Section Encounter Notes: All associated encounter notes This section contains the clinical notes associated to the Encounter. Date/Time Encounter Note(s) Provider Source Dec 05, 2018 12:04 PM CARE COORDINATION HOME TELE[facility] [place] FOLLOW-UP NOTE: LOCAL TITLE: HT INTERVENTION NOTE STANDARD TITLE: CARE COORDINATION HOME TELEHEALTH FOLLOW-UP NOTE DATE OF NOTE: DEC 05, 2018@12:04 ENTRY DATE: DEC 05, 2018@12:04:05 AUTHOR: KALA JONES COSIGNER: URGENCY: STATUS: COMPLETED HT INTERVENTION NOTE Has ADDENDA action needed: reentry/renewal of cc cardio consult. f/u w/ dr. arabella miller is actively enrolled in the Home Telehealth program. Review of data shows the following out of range responses: f/u on trends; wnl Assessment: Intervention(s)/Plan: repors concerns w/ bp. informed bp has been wnl/goal. reports "just doesn't like see the fluctuations". reviewed some variation is expected given diet, fluid intake, medication/time taken, activity, sleep, stress. reviewed bp goal w : <140/80 >100/70 - inquiring about cc cardio cons ult. needing renewed/re-entered so august f[place] non [place] museum specialist - dr. arabella miller - encouraged daily weight entry HERBERTH BOB [phone]) Vital Sign Data for: 11/15/2018 - 12/05/2018 (All times are PHYSICIAN ADVISOR; All weights are lbs) Primary DMP: CAD Comorbid(s): Summary Weight Sys BP [place] BP Heart Rate Glucose SpO2 FEV1 PEF Temp High 215.5 131 85 102 144 Low 214.6 103 65 63 90 Average 215.1 118 78 77 115 Date Time Wt Time Sys Qu[place]ga Time HR Time Glu Time SpO2 12/05/2018 - 08:39 117/67 08:39 72 08:37 144 12/04/2018 - 13:17 108/76 13:17 102 13:15 123 12/03/2018 - 10:13 114/78 10:13 67 23:45 133 12/03/2018 - - - 10:14 116 12/02/2018 - 09:44 103/71 09:44 69 09:42 102 12/01/2018 - 10:37 131/84 10:37 69 22:22 122 12/01/2018 - - - 08:10 93 11/30/2018 - 13:14 126/82 13:14 82 09:00 95 11/28/2018 - 10:31 107/73 10:31 76 06:30 116 11/27/2018 - 10:03 129/81 10:03 74 10:02 115 11/27/2018 - - - 06:55 120 11/26/2018 - 11:14 114/73 11:14 72 07:07 115 11/25/2018 - 09:37 109/72 09:37 93 06:51 110 11/24/2018 - 10:02 115/80 10:02 84 10:02 136 11/23/2018 - 10:42 121/65 10:42 80 10:41 107 11/22/2018 12:35 215.5 12:36 120/83 12:36 77 12:37 117 11/21/2018 - 11:08 113/78 11:08 63 20:50 101 11/21/2018 - - - 17:12 90 11/21/2018 - - - 11:07 103 11/20/2018 - 09:52 122/83 09:52 80 13:40 109 11/19/2018 - 10:11 111/78 10:11 77 - 11/18/2018 - 10:07 123/85 10:07 74 10:05 131 11/17/2018 - 10:03 122/84 10:03 86 - 11/16/2018 - 11:00 128/81 11:00 77 10:58 134 11/15/2018 10:26 214.6 10:27 131/83 10:27 75 - Date Time FEV1 Time PEF Time Temp TYPE OF ENCOUNTER: Telephone Length of call: 11-20 minutes /gisell/ KALA JONES RN, BSN Signed: 12/05/2018 14:00 Receipt Acknowledged By: 12/05/2018 15:26 /frida DOMINGUEZ RN 12/05/2018 14:29 /frida Cortes 12/05/2018 ADDENDUM STATUS: COMPLETED Patient needs Certified Breastfeeding Educator to submit ERMA. /frida RAMSEY Signed: 12/05/2018 14:29 Receipt Acknowledged By: 12/05/2018 15:21 /KALA Moncada RN [facility]
--- OUTSIDE RECORDS SUMMARY | 2019-11-11 02:24 | XMS REPORT | Encounter Summary ---
Author Author Department of [facility] HERBERTH kline Organization Department of [facility] Address [address] [place] [address] Phone Unavailable Care Team Providers Care Leather Colorer Name Role Phone ADRIEL HERNANDEZ PCP Unavailable Insurance Providers: All historical and current No Data Provided for This Section Selected Encounter This section includes the information on record at [place] for the Encounter. Date/Time Encounter Type Encounter Description Reason Provider Source Dec 13, 2018 01:11 PM Outpatient Encounter COMMUNITY CARE CONSULT [facility] 15 IHE Encounter Template Text not used by [place] Assessments - Encounter Diagnoses No Data Provided for This Section Plan of Treatment: Future Appointments (+ 6 months) and Future Tests (+/- 45 day s) The Plan of Treatment section includes future care activities for the patient fr om all [place] treatment facilities. This section includes future appointments and fu ture orders which are active, pending or scheduled. Future Appointments This section includes appointments that were scheduled t o occur 6 months from the date of the Encounter, up to a maximum of 20 appointme nts. The data comes from all [place] treatment facilities. Appointment Date/Time Appointment Type Appointment Facili ty Name Dec 18, 2018 09:00 AM AMBULATORY - MEDICINE [facility] Dec 18, 2018 10:00 AM AMBULATORY - NONE [facility] Dec 18, 2018 10:01 AM AM[facility]ORY - NONE [facility] Jan 06, 2019 11:00 AM AMBULATORY - NONE [facility] Jan 31, 2019 09:00 AM AM[facility] - MEDICINE [facility] Mar 10, 2019 12:30 PM AMBUL[facility]ORY - SURGERY [facility] Mar 21, 2019 09:15 AM AMBUL[facility]ORY - NONE [facility] Mar 21, 2019 09:30 AM AMBUL[facility] - MEDICINE [facility] Mar 21, 2019 09:31 AM AMBULATORY - MEDICINE [facility] Mar 21, 2019 10:00 AM AMBUL[facility]ORY - MEDICINE [facility] Mar 21, 2019 10:01 AM AMBULATORY - MEDICINE [facility] Mar 26, 2019 10:00 AM AMBULATORY - [...] Comment Dec 18, 2018 08:45 AM [facility] CBC & [...] 0.4 % Dec 18, 2018 08:45 AM [facility] COMPREHENSIVE METABOLIC PA KELLE Specimen Type: PLASMA [...] EGFR >60 Dec 18, 2018 08:45 AM [facility] LIPID PROFILE(HDL,TRIG,CHO L,LDL) Specimen Type: PLASMA Comment: For eGFR: eGFR results >60 are imprecise. Many variables affect the calculated result. Interpretation of eGFR results >60 must be monitored over time. CHOLESTEROL 172 mg/dL 0-200 TRIGS 190 mg/dL H 0-150 HDL-CHOLESTEROL 40 mg/dL >40 LDL (CALC) 94 mg/dL 0-99.9 Dec 18, 2018 08:45 AM [facility] PROSTATIC SPECIFIC ANTIGEN (TOTAL) Specimen Type: SERUM [...] Negative Negative Dec 18, 2018 08:45 AM [facility] MICROALBUMIN (ANANT,WI) RANDO M URINE Specimen Type: URINE Comment: Microalbumin is below the linearity of the instrument, unable to calculate the albumin/creatinine ratio. *MICROALBUMIN,RAND < 5 ug/mL *MICROALB/CREAT canc mcg/mg cr *PROT/SILICA FILTER OPERATOR RATIO 0.1 *UR PROTEIN 8 mg/dL [...] patient. The data comes from a [facility] treatment facilities. It does not list Allergies/ADRs that were removed or entered in error. Some allergies/ADRs may be reported in t he Immunization section. Allergen Event Date Event Type Reaction(s) Severity Source BRIL[place] September 08, 2014 Propensity to adverse reactions to drug (diso rder) [facility] PLAV[place] September 08, 2014 Propensity to adverse reactions to drug (diso rder) [facility] Medications: VA dispensed (-15 months) and Non-VA Documented (Obtained Outside V A) Section Date Range: 1) prescriptions processed by a VA pharmacy in the last 15 m [facility], and 2) all medications recorded in the VA medical record as "non-VA medic ations". Pharmacy terms refer to VA pharmacy's work on prescriptions. VA patient s are advised to take their medications as instructed by their health care team. The data comes from all [place] treatment facilities. Glossary of Pharmacy Terms:Active = A prescription that can be filled at the local [place] pharmacy.Active: On Hold = An active prescription that will not be filled until pharmacy resolves the issue.Active: Susp = An active prescription that is not scheduled to be filled yet.Clinic Order = A medication received during a visit to a [place] clinic or emergency department (currently not available).Discontinued [...] other providers that was filled outside the [place]. Or, it may be an over the [...] TEST BLOOD GLUCOSE 50 Dec 19, 2019 [id number] September 04, 2019 PAMELA RAMSEY ACCU-CHEK CHARLES PLUS (GLUCOSE) TEST STRIP Discontinued USE 1 STRIP FOR TESTING TWO TIMES PER WEEK - DIRECTED TO TEST BLOOD GLUCOSE 50 Jul 25, 2019 [id number] Nov 12, 2018 PAMELA RAMSEY ALBUTEROL SO4 90MCG/ACTUAT (CFC-F) INHL,ORAL,6.7GM Active INHALE 2 PUFFS BY ORAL INHALATION EVERY 4 HOURS NEEDED FOR BREATHING. SHAKE WELL. RINSE MOUTHPIECE FREQUENTLY TO PREVENT CLOGGING. USE NEEDED FOR SHORTNESS OF AIR/WHEEZING FOR BREATHING. SHAKE WELL. RINSE MOUTHPIECE FREQUENTLY TO PREVENT CLOGGING. USE NEEDED FOR SHORTNESS OF AIR/WHEEZING 1 Dec 19, 2019 [id number] September 04, 2019 PAMELA RAMSEY ALCOHOL PREP PAD Active USE 1 PAD ON SKIN BIW TO CLEAN AND DISINFECT THE SKIN 200 Sep 29, 2020 [id number] Sep 30, 2019 MAURICIO RANKIN [facility] ALCOHOL PREP PAD Discontinued USE 1 PAD ON SKIN BI W TO CLEAN AND DISINFECT THE SKIN 200 Dec 19, 2019 [id number] Jun 06, 2019 PAMELA RAMSEY ALCOHOL PREP PAD Discontinued USE 1 PAD ON SKIN BI W TO CLEAN AND DISINFECT THE SKIN 200 Jul 25, 2019 [id number] Nov 12, 2018 PAMELA RAMSEY ASPIRIN 25MG/DIPYRIDAMOLE 200MG CAP,SA Active T CHAPIN 1 CAPSULE BY MOUTH TWO TIMES A DAY - SWALLOW WHOLE. DO NOT CRUSH OR CHEW. FOR RECURRENT TIA/STROKE 180 Dec 19, 2019 [id number] Dec 20, 2018 PAMELA RAMSEY ASPIRIN 25MG/DIPYRIDAMOLE 200MG CAP,SA Discontinued T CHAPIN 1 CAPSULE BY MOUTH TWO TIMES A DAY - SWALLOW WHOLE. DO NOT CRUSH OR CHEW. FOR RECURRENT TIA/STROKE 180 Feb 06, 2019 [id number] Sep 28, 2018 ZACHARY GRECO V [facility] ASPIRIN 81MG TAB,EC Non- VA TAKE ONE TABLET BY MOUTH ONCE A DAY Non-VA Documented by: PADMA LONG nted at: [facility] ATORVASTATIN CA 80MG TAB Active TAKE ONE TABLET BY MOUTH AT BEDTIME FOR CHOLESTEROL - REPORT ANY UNEXPLAINED MUSCLE PAIN/WEAKNESS TO YOUR PROVIDER 90 Dec 19, 2019 [id number] September 04, 2019 PAMELA RAMSEY ATORVASTATIN CA 80MG TAB Discontinued TAKE ONE TABLET BY MOUTH AT BEDTIME FOR CHOLESTEROL - REPORT ANY UNEXPLAINED MUSCLE PAIN/WEAKNESS TO YOUR PROVIDER 90 Dec 20, 2018 [id number] Nov 12, 2018 BRAULIO,PAMELA [facility] BUDESONIDE 160MCG/FORMOTEROL FUM 4.5MCG/SPRAY INHL,ORAL,10.2 GM Active INHALE 2 PUFFS BY MOUTH TWO TIMES A DAY FOR BREATHING. SHAKE WELL. RINSE MOUTH AND SPIT AFTER EACH USE. 3 Apr 24, 2020 [id number] August 22, 2019 LISSA OATES [facility] CALCIUM/VITAMIN D TAB No n-VA TAKE BY MOUTH ONCE A DAY Non-V A Documented by: PADMA LONG nted at: [facility] CARBOXYMETHYLCELLULOSE NA 0.5% SOLN,OPH Active INSTILL ONE DROP IN BOTH EYES FOUR TIMES A DAY FOR DRY EYES Feb 01, 2020 [id number] September 03 0 NEDA SHAW [facility] [...] FOR ALL JOINTS. 100 Oct 31, 2018 [id number] Oct 06, 2018 ANAYELI KIRKPATRICK [facility] DICLOFENAC NA 1% GEL,TOP APPLY 2 GRAMS A FFECTED AREA TWO TIMES A DAY NEEDED FOR PAIN AND INFLAMMATION. DO NOT EXCEED 16GM DAILY TO ANY AFFECTED JOINT OF LOWER EXTREMITIES. DO NOT EXCEED 8GM DAILY TO ANY AFFECTED JOINT OF UPPER EXTREMITES. DO NOT EXCEED TOTAL DOSE OF 32GM DAILY FOR ALL JOINTS. 100 Jan 17, 2019 [id number] Dec 20, 2018 PAMELA RAMSEY FLUTICASONE PROPIONATE 50MCG/SPRAY SOLN,NASAL,16GM Active INSTILL 1 SPRAY IN EACH NOSTRIL ONCE A DAY SHAKE GENTLY BEFORE USE! - MUST BE USED DIRECTED FOR 3 WEEKS TO PROVIDE BENEFIT. * NO EARLY REFILLS * 1UNIT = 30DAYS AT 4 PF/DAY OR 60DAYS AT 2PF/DAY 2 Dec 19, 2019 [id number] August 26, 2019 [facility] KETOTIFEN 0.025% SOLN,OPH Active INSTILL 1 DROP IN BOTH EYES TWO TIMES A DAY FOR RELIEF OF ALLERGY SYMPTOMS IN EYE(S) Feb 01, 2020 [id number] September 04, 2019 NEDA SHAW [facility] LANCET,SOFTCLIX Active USE LANCET BIW FOR TESTING BL OOD GLUCOSE DIRECTED 100 Sep 29, 2020 [id number] Sep 30, 2019 MAURICIO RANKIN [facility] LANCET,SOFTCLIX Discontinued USE LANCET BIW FO R TESTING BLOOD GLUCOSE DIRECTED 100 Dec 19, 2019 [id number] Jun 06, 2019 [facility] LANCET,SOFTCLIX Discontinued USE LANCET BIW FO R TESTING BLOOD GLUCOSE DIRECTED 100 Jul 25, 2019 [id number] Nov 12, 2018 [facility] LISINOPRIL 40MG TAB Non- [place] TAKE ONE-HALF TABLET BY MOUTH EVERY MORNING Non-VA Documented by: PAMELA RAMSEY nted at: [facility] LORATADINE/PSEUDOEPHEDRINE TAB,SA Non-VA TAKE BY MOUTH No n-VA Documented by: JUAN LANG nted at: [facility] MAGNESIUM OXIDE 250MG TAB Non-VA TAKE [...] ACID (REPLACES ACIPHEX) 180 Dec 19, 2019 [id number] August 26, 2019 PAMELA RAMSEY POTASSIUM GLUCONATE TAB Non-VA TAKE 595MG BY MOUTH ONCE A DAY N on-VA Documented by: PADMA LONG nted at: [facility] PRASUGREL HCL 10MG TAB N on-VA TAKE ONE TABLET BY MOUTH ONCE A DAY Non-VA Documented by: KATHERINE MATT nted at: [facility] PREGABALIN 150MG [...] ANAYELI KIRKPATRICK Docume nted at: [facility] [place] [facility] TERBINAFINE HCL 1% CREAM,TOP Active APPLY LIGHT LY TO AFFECTED AREA TWO TIMES A DAY FOR INFECTION 90 Sep 23, 2020 [id number] Sep 24, 2019 ADRIEL HERNANDEZ UREA 20% CREAM,TOP Active APPLY LIGHTLY (20%) TO AFFECTED AREA TWO TIMES A DAY NEEDED TO PROMOTE HEALING,RUB IN UNTIL COMPLETELY ABSORBED*FOR TOPICAL USE ONLY* APPLY TO BOTH FEET DIRECTED. 90 Sep 25, 2020 [id number] Sep 26, 2019 ADRIEL HERNANDEZ Problems (Conditions): All historical and current Section Date Range: From patient's date of to the date document was create d. This section includes a list of Problems (Conditions) know n to [place] for the patient. It includes both active and inacti ve problems (conditions). The data comes from all [place] treatment facilities. Problem Status Problem Code Date of Onset Date of Resolution Comm ent(s) Provider Source Alcohol intake above recommended sensible limits Active 818533359 PADMA LONG [facility] Allergic conjunctivitis Active 173381833 [facility]ANTICOFACUNDONEDA J [facility] Bilateral senile combined form cataracts of eyes Active 86653123402 9108 [facility] Bilateral tinnitus Active 2841348141519 CHASTITY JEAN [facility] Coronary arteriosclerosis Active 47528391 September 08, 2014 Entered By: PADMA LONG Comment: hx of ptca to RCA several yrs. agoSeptember 08, 2014 Entered By: PADMA LONG Comment: heart cath 09/01/14, neg. / previous stent to RCA,, [place] HATCHER, JENNEY R [facility] Diabetes mellitus Active 44334025 PAMELA RAMSEY [facility] Disorder of pancreas Active 0138804 September 08, 2014 Entered By: PADMA LONG Comment: 2.5cm low density lseion in bodyMay 2014 Entered By: PADMA LONG Comment: question of communication with pancreatic ductMay 2014 Entered By: PADMA LONG Comment: favored to be cystic pancreatic cancerMay 2014 Entered By: PADMA LONG Comment: per abdominal CT 09/01/14, [place] PADMA LONG [facility] Dry eyes Active 173149249 NEDA SHAW [facility] Gastro-esophageal reflux disease without esophagitis ( SNOMED CT 521786578) Active 383688787 ALF GUEVARA [facility] Hyperlipidemia (SNOMED CT 04592498) Active 30544224 PAMELA RAMSEY [facility] Lung mass Active 564401203 September 08, 2014 E ntered By: PADMA LONG Comment: 4.5 cm mass, post. segment right upper lobe.September 08, 2014 Entered By: PADMA LONG Comment: mild adenopathy in mediastinum and bilat. hilaMay 2014 Entered By: PADMA LONG Comment: most likely related to lung cancerMa2014 Entered By: PADMA LONG Comment: per ct angio of chest with contrast 09/01/14,[place] 2014 Entered By: PADMA LONG Comment: per path report- mod. differentiated bronchogenic adenoca. 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 Active 70538064 KATHERINE MATT [facility] Obesity Active 985544012 SONG BULLOCK [facility] Obstructive sleep apnea syndrome (SNOMED CT 28487598) Active 132008 015 PHILIPPE DOUGLASS [facility] Pancreatic cyst Active 84442488 JAYLENE GUEVARA [facility] Papilloma of right eyelid Active 093982509166935 NEDA SHAW [facility] Polyp of colon Active 55063620 Jan 23 16 Entered By: PADMA LONG Comment: c-scope 01/17/16, multiple benign colonic polypsMar 2017 Entered By: PADMA LONG Comment: c-scope,06/25/17,[facility], three benign polyps- sigmoid colon, transverse colon,cecum. see path report cprs SHARRON TORRES [facility] Pulmonary emphysema Active 62825129 0 BRIANA LESLYE [facility] Sensorineural hearing loss, bilateral Active 425710511 CHASTITY JEAN [facility] Snoring Active 27009975 S[place]ULLOCK [facility] Type 2 diabetes mellitus without complication Active 137881657 NEDA SHAW [facility] Environmental Allergies (ICD-9-CM 477.9) Inactive 477.9 Dec 18, 2017 PADMA LONG [facility] External hemorrhoids without mention of complication (ICD-9- CM 455.3) Inactive 455.3 Dec 18, 2017 PADMA LONG [facility] Impotence of organic origin (ICD-9-CM 607.84) Inactive 607.84 Dec 18, 2017 PADMA LONG [facility] Screening for Lipoid disorders (ICD-9-CM V77.91) Inactive V77.91 Jan 18, 2007 PADMA LONG [facility] Stye * (ICD-9-CM 373.11) Inactive 373.11 Dec 18, 8 Jan 18, 2007 Entered By: PADMA LONG Comment: bilat lower lids, chronic/recurrent PADAM LONG [facility] Tobacco Use Disorder, Continuous Inactive 305.1 Dec 18, 2017 Jan 18, 2007 Entered By: PADMA LONG Comment: one ppd PADMA LONG [facility] Radiology Reports: +/- 30 days of the encounter No Data Provided for This Section Pathology Reports: +/- 30 days of the encounter No Data Provided for This Section Encounter Notes: All associated encounter notes This section contains the clinical notes associated to the Encounter. Date/Time Encounter Note(s) Provider Source Dec 13, 2018 01:11 PM NONVA NOTE: LOCAL TITLE: COMMUNITY CARE-COORDINATION NOTE WI STANDARD TITLE: NONVA NOTE DATE OF NOTE: DEC 13, 2018@13:11 ENTRY DATE: DEC 13, 2018@13:11:10 AUTHOR: RAZ MARQUEZ EXP COSIGNER: URGENCY: STATUS: COMPLETED Clinical Note: ERMA received from: Dr. Beba Serna Care requested: Continuation of care for cardiology DX: R07.9 To PCP for review and consideration of community care consult placement. ERMA and Progress notes will be emailed to PCP via secure email. /gisell/ RAZ MARQUEZ Signed: 12/13/2018 13:16 Receipt Acknowledged By: 12/13/2018 14:23 /gisell/ SHANIQUA DOMINGUEZ RN 12/13/2018 13:58 /es/ RAZ QIUROZ [facility]
--- OUTSIDE RECORDS SUMMARY | 2019-11-11 02:24 | XMS REPORT | Encounter Summary ---
Author Author [facility] Organization Department of [facility] Address [address] [place] [address] Phone Unavailable Care Team Providers Care Correctional Manager Name Role Phone ADRIEL HERNANDEZ PCP Unavailable Insurance Providers: All historical and current No Data Provided for This Section Selected Encounter This section includes the information on record at [place] for the Encounter. Date/Time Encounter Type Encounter Description Reason Provider Source Dec 05, 2018 02:00 PM Outpatient Encounter HT NON-VIDEO MONITORI NG ICD-10-CM I25.10 Athscl heart disease of [place] coronary artery w/o jaden muñoz with Provider Comments: Atherosclerotic Heart Disease of [place] Coronary Artery without Angina Pectoris KALA JONES [facility] IHE Encounter Template Text not used by [place] Assessments - Encounter Diagnoses This section includes the primary and secondary diag noses documented for the Encounter. Date/Time Primary/Secondary Diagnosis Diagnosis Name Provider Source Dec 05, 2018 02:01 PM PRIMARY Athscl heart disea se of [place] coronary artery w/o jaden pctKALA Hammond [facility] Plan of Treatment: Future Appointments [...] appointme nts. The data comes from all [facility]. Appointment Date/Time Appointment Type Appointment Facili ty Name Dec 18, 2018 09:00 AM AMBULATORY - MEDICINE [facility] Dec 18, 2018 10:00 AM [facility] Dec 18, 2018 10:01 AM [facility]AT[facility] - NONE [facility] Jan 06, 2019 11:00 AM [facility] - NONE [facility] Jan 31, 2019 09:00 AM [facility] - MEDICINE [facility] Mar 10, 2019 12:30 PM AMBULATORY - SURGERY [facility] Mar 21, 2019 09:15 AM AMBULATORY - NONE [facility] Mar 21, 2019 09:30 AM AMBULATORY - MEDICINE [facility] Mar 21, 2019 09:31 AM AMBULATORY - MEDICINE [facility] LaresJuan M [facility] Mar 21, 2019 10:00 AM AMBULATORY - MEDICINE [facility] Mar 21, 2019 10:01 AM AMBULATORY - MEDICINE [facility]UR BLAS [facility] Mar 26, 2019 10:00 AM [facility] Apr 03, 2019 10:00 AM AMBULATORY - SURGERY ARTUR BLAS [facility] Apr 14, 2019 10:00 AM AMBULATORY - SURGERY [facility] Apr 28, 2019 11:00 AM AMBULATORY - NONE [facility] BLAS [facility] Surgical Procedures: All associated to [...] Range Comment Dec 18, 2018 08:45 AM [facility] CBC & DIFF Specimen Type: BLOOD [...] % Dec 18, 2018 08:45 AM [facility] COMPREHENSIVE METABOLIC PA KELLE Specimen Type: [...] >60 Dec 18, 2018 08:45 AM [facility] LIPID PROFILE(HDL,TRIG,CHO L,LDL) Specimen Type: PLASMA [...] < 5 ug/mL *MICROALB/CREAT canc mcg/mg cr *PROT/MILL LABOR SUPERVISOR RATIO 0.1 *UR PROTEIN 8 mg/dL *UR [...] and tobacco- related health factors from the [place] facility where the Encounter took place. Current Smoking Status This section includes the most current smoking, or tobacco -related health factor, from the [place] facility where the Encounter took place. Date/Time Current Smoking Status Comment Facility Jun 26, 2018 02:13 PM VA-TOBACCO QUIT 15 YRS OR MORE [facility] Tobacco Use History This section includes a history of the smoking, or tobacco -related health factors, that were collected on or before the date of the Encoun ter. The data comes from the [place] facility where the Encounter took place. Date/Time Smoking Status/Tobacco Use Comment [facility] Jun 26, 2018 02:13 PM VA-TOBACCO QUIT 15 YRS OR MORE [facility] Jun 27, 2017 01:39 PM NON-TOBACCO [...] the patient. The data comes from a [facility] treatment facilities. It does not [...] pharmacy in the last 15 m [facility], and 2) all medications recorded in [...] TEST BLOOD GLUCOSE 50 Dec 19, 2019 [id number] September 04, 2019 PAMELA RAMSEY ACCU-CHEK CHARLES PLUS (GLUCOSE) TEST STRIP Discontinued USE 1 STRIP FOR TESTING TWO TIMES PER WEEK - DIRECTED TO TEST BLOOD GLUCOSE 50 Jul 25, 2019 [id number] Nov 12, 2018 PAMELA RAMSEY ALBUTEROL SO4 90MCG/ACTUAT (CFC-F) INHL,ORAL,6.7GM Active INHALE 2 PUFFS BY ORAL INHALATION EVERY 4 HOURS NEEDED FOR BREATHING. SHAKE WELL. RINSE MOUTHPIECE FREQUENTLY TO PREVENT CLOGGING. USE NEEDED FOR SHORTNESS OF AIR/WHEEZING FOR BREATHING. SHAKE WELL. RINSE MOUTHPIECE FREQUENTLY TO PREVENT CLOGGING. USE NEEDED FOR SHORTNESS OF AIR/WHEEZING 1 Dec 19, 2019 [id number] September 04, 2019 BRAULIO,PAMELA [facility] ALCOHOL PREP PAD Active USE 1 PAD ON SKIN BIW TO CLEAN AND DISINFECT THE SKIN 200 Sep 29, 2020 [id number] Sep 30, 2019 MAURICIO RANKIN [facility] ALCOHOL PREP PAD Discontinued USE 1 PAD ON SKIN BI W TO CLEAN AND DISINFECT THE SKIN 200 Dec 19, 2019 [id number] Jun 06, 2019 PAMELA RAMSEY [facility] ALCOHOL PREP PAD Discontinued USE 1 PAD ON SKIN BI W TO CLEAN AND DISINFECT THE SKIN 200 Jul 25, 2019 [id number] Nov 12, 2018 PAMELA RAMSEY [facility] ASPIRIN 25MG/DIPYRIDAMOLE 200MG CAP,SA Active T CHAPIN 1 CAPSULE BY MOUTH TWO TIMES A DAY - SWALLOW WHOLE. DO NOT CRUSH OR CHEW. FOR RECURRENT TIA/STROKE 180 Dec 19, 2019 [id number] Dec 20, 2018 PAMELA RAMSEY [facility] ASPIRIN 25MG/DIPYRIDAMOLE 200MG CAP,SA Discontinued T CHAPIN 1 CAPSULE BY MOUTH TWO TIMES A DAY - SWALLOW WHOLE. DO NOT CRUSH OR CHEW. FOR RECURRENT TIA/STROKE 180 Feb 06, 2019 [id number] Sep 28, 2018 ZACHARY GRECO [facility] ASPIRIN 81MG TAB,EC Non- VA TAKE ONE TABLET BY MOUTH ONCE A DAY Non-VA Documented by: PADMA LONG nted at: [facility] ATORVASTATIN [place] 80MG TAB Active TAKE ONE TABLET BY MOUTH AT BEDTIME FOR CHOLESTEROL - REPORT ANY UNEXPLAINED MUSCLE PAIN/WEAKNESS TO YOUR PROVIDER 90 Dec 19, 2019 [id number] September 04, 2019 PAMELA RAMSEY [facility] ATORVASTATIN CA 80MG TAB Discontinued TAKE ONE TABLET BY MOUTH AT BEDTIME FOR CHOLESTEROL - REPORT ANY UNEXPLAINED MUSCLE PAIN/WEAKNESS TO YOUR PROVIDER 90 Dec 20, 2018 [id number] Nov 12, 2018 PAMELA RAMSEY [facility] BUDESONIDE 160MCG/FORMOTEROL FUM 4.5MCG/SPRAY INHL,ORAL,10.2 GM Active INHALE 2 PUFFS BY MOUTH TWO TIMES A DAY FOR BREATHING. SHAKE WELL. RINSE MOUTH AND SPIT AFTER EACH USE. 3 Apr 24, 2020 [id number] August 22, 2019 LISSA OATES [facility] CALCIUM/VITAMIN D TAB No n-VA TAKE BY MOUTH ONCE A DAY Non-V A Documented by: PADMA LONG nted at: [facility] CARBOXYMETHYLCELLULOSE NA 0.5% SOLN,OPH Active INSTILL ONE DROP IN BOTH EYES FOUR TIMES A DAY FOR DRY EYES 15 Feb 01, 2020 [id number] September 03 0 [facility] DICLOFENAC NA 1% GEL,TOP Discontinued APPLY 2 GRAMS A FFECTED AREA TWO TIMES A DAY NEEDED FOR PAIN AND INFLAMMATION. DO NOT EXCEED 16GM DAILY TO ANY AFFECTED JOINT OF LOWER EXTREMITIES. DO NOT EXCEED 8GM DAILY TO ANY AFFECTED JOINT OF UPPER EXTREMITES. DO NOT EXCEED TOTAL DOSE OF 32GM DAILY FOR ALL JOINTS. 100 Oct 31, 2018 [id number] Oct 06, 2018 ANAYELI KIRKPATRICK [facility] DICLOFENAC NA 1% GEL,TOP APPLY 2 GRAMS A FFECTED AREA TWO TIMES A DAY NEEDED FOR PAIN AND INFLAMMATION. DO NOT EXCEED 16GM DAILY TO ANY AFFECTED JOINT OF LOWER EXTREMITIES. DO NOT EXCEED 8GM DAILY TO ANY AFFECTED JOINT OF UPPER EXTREMITES. DO NOT EXCEED TOTAL DOSE OF 32GM DAILY FOR ALL JOINTS. 100 Jan 17, 2019 [id number] Dec 20, 2018 PAMELA RAMSEY FLUTICASONE PROPIONATE 50MCG/SPRAY SOLN,NASAL,16GM Active INSTILL 1 SPRAY IN EACH NOSTRIL ONCE A DAY SHAKE GENTLY BEFORE USE! - MUST BE USED DIRECTED FOR 3 WEEKS TO PROVIDE BENEFIT. * NO EARLY REFILLS * 1UNIT = 30DAYS AT 4 PF/DAY OR 60DAYS AT 2PF/DAY 2 Dec 19, 2019 [id number] August 26, 2019 PAMELA RAMSEY KETOTIFEN 0.025% SOLN,OPH Active INSTILL 1 DROP IN BOTH EYES TWO TIMES A DAY FOR RELIEF OF ALLERGY SYMPTOMS IN EYE(S) Feb 01, 2020 [id number] September 04, 2019 [facility] LANCET,SOFTCLIX Active USE LANCET BIW FOR TESTING BL OOD GLUCOSE DIRECTED Sep 29, 2020 [id number] Sep 30, 2019 MAURICIO RANKIN LANCET,SOFTCLIX Discontinued USE LANCET BIW FO R TESTING BLOOD GLUCOSE DIRECTED Dec 19, 2019 [id number] Jun 06, 2019 [facility] LANCET,SOFTCLIX Discontinued USE LANCET BIW FO R TESTING BLOOD GLUCOSE DIRECTED 100 Jul 25, 2019 [id number] Nov 12, 2018 PAMELA RAMSEY LISINOPRIL 40MG [...] ACID (REPLACES ACIPHEX) 180 Dec 19, 2019 [id number] August 26, 2019 PAMELA RAMSEY POTASSIUM GLUCONATE TAB Non-VA TAKE 595MG BY MOUTH ONCE A DAY N on-VA Documented by: PADMA LONG nted at: [facility] PRASUGREL HCL 10MG TAB N on-VA TAKE ONE TABLET BY MOUTH ONCE A DAY Non-VA Documented by: KATHERINE MATTume nted at: [facility] PREGABALIN 150MG CAP,ORAL Non-VA TAKE 1 [...] DAY FOR INFECTION 90 Sep 23, 2020 [id number] Sep 24, 2019 ADRIEL HERNANDEZ [facility] UREA 20% CREAM,TOP Active APPLY LIGHTLY (20%) TO AFFECTED AREA TWO TIMES A DAY NEEDED TO PROMOTE HEALING,RUB IN UNTIL COMPLETELY ABSORBED*FOR TOPICAL USE ONLY* APPLY TO BOTH FEET DIRECTED. 90 Sep 25, 2020 [id number] Sep 26, 2019 ADRIEL HERNANDEZ CB Problems [...] Alcohol intake above recommended sensible limits Active 573046623 PADMA LONG [facility] Allergic conjunctivitis Active 362758299 [facility] Bilateral senile combined form cataracts of eyes Active 44443105282 9108 [facility] Bilateral tinnitus Active [id number] CHASTITY JEAN [facility] Coronary arteriosclerosis Active 98553263 September 08, 2014 Entered By: PADMA LONG Comment: hx of ptca to RCA several yrs. agoSeptember 08, 2014 Entered By: PADMA LONG Comment: heart cath 09/01/14, neg. / previous stent to RCA,, via abida meneses ks HATCHER, JENNEY R ROBERT [facility] Diabetes mellitus Active 93149278 PAMELA RAMSEY [facility] Disorder of pancreas Active [id number] September 08, 2014 Entered By: PADMA LONG Comment: 2.5cm low density lseion in bodyMay 2014 Entered By: PADMA LONG Comment: question of communication with pancreatic ductMay 2014 Entered By: PADMA LONG Comment: favored to be cystic pancreatic cancerSeptember 08, 2014 Entered By: PADMA LONG Comment: per abdominal CT 09/01/14, via abida meneses ks FRAZIER, JAY J [facility] Dry eyes Active 191940930 [place] [facility] Gastro-esophageal reflux disease without esophagitis ( SNOMED CT 509881336) Active 546024286 ALF GUEVARA [facility] Hyperlipidemia (SNOMED CT 99771649) Active 21244427 PAMELA RAMSEY [facility] Lung mass Active 837898538 September 08, 2014 E ntered By: PADMA LONG Comment: 4.5 cm mass, post. segment right upper lobe.September 08, 2014 Entered By: PADMA LONG Comment: mild adenopathy in mediastinum and bilat. [email or web address] Entered By: PADMA LONG Comment: most likely related to lung cancerMa2014 Entered By: PADMA LONG Comment: per ct angio of chest with contrast 09/01/14,[facility] Entered By: PADMA LONG Comment: per path report- mod. differentiated bronchogenic adenoca. 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 Obstructive sleep apnea syndrome (SNOMED CT 83753349) Active 642992 015 [place] [facility] Pancreatic cyst Active 35829332 JAYLENE GUEVARA [facility] Papilloma of right eyelid Active [id number] [place] [facility] Polyp of colon Active 71086261 Jan 23 16 Entered By: PADMA LONG Comment: c-scope 01/17/16, multiple benign colonic polypsJun 28, 2017 Entered By: PADMA LONG Comment: c-scope,06/25/17,[facility], three benign polyps- sigmoid colon, transverse colon,cecum. see path report cprs [facility] Pulmonary emphysema Active 70390682 0 BRIANA [place] [facility] Sensorineural hearing loss, bilateral Active 532679413 SLEDGCHASTITY Zaragoza [facility] Snoring Active 74094332 [place] ARTUR [facility] Type 2 diabetes mellitus without complication Active 094040821 [place] [facility] Environmental Allergies (ICD-9-CM 477.9) Inactive 477.9 Dec 18, 2017 [facility] External hemorrhoids without mention of complication (ICD-9- CM 455.3) Inactive 455.3 Dec 18, 2017 [facility] Impotence of organic origin (ICD-9-CM 607.84) Inactive 607.84 Dec 18, 2017 [facility] Screening for Lipoid disorders (ICD-9-CM V77.91) Inactive V77.91 Jan 18, 2007 [facility] Stye * (ICD-9-CM 373.11) Inactive 373.11 Dec 18, 201 8 Jan 18, 2007 Entered By: PADMA LONG Comment: bilat lower lids, chronic/recurrent PADMA LONG [facility] Tobacco Use Disorder, Continuous Inactive [...] Encounter Note(s) Provider Source Dec 05, 2018 02:00 PM [facility]ORDIN[facility] SUM[facility]: LOCAL TITLE: MONTHLY MONITOR NOTE STANDARD TITLE: CARE COORDINATION HOME TELEHEALTH SUMMARIZATION DATE OF NOTE: DEC 05, 2018@14:00 ENTRY DATE: DEC 05, 2018@14:00:48 AUTHOR: KALA JONES COSIGNER: URGENCY: STATUS: COMPLETED The is enrolled in the Home Telehealth (HT) program and continues to be monitored via HT technology. The data sent by the is reviewed and analyzed by the staff, who provide ongoing case management and [place] health education while communicating and collaborating with the health care team as appropriate. This note covers a total of 30 minutes for the month monitored. Month monitored: /gisell/ KALA JONES RN, BSN Signed: 12/05/2018 14:01 [facility]
--- OUTSIDE RECORDS SUMMARY | 2019-11-11 02:25 | XMS REPORT | Encounter Summary ---
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 Date/Time Encounter Type Encounter Description Reason Provider Source Nov 16, 2018 08:31 AM Outpatient Encounter COMMUNITY CARE CONSULT [facility] 15 IHE Encounter [...] AMBULATORY - NONE ARTUR MAYFIELD C Dec 18, 2018 10:01 AM AMBULATORY - NONE [facility] Jan 06, 2019 11:00 AM AMBULATORY - NONE ARTUR MAYFIELD C Jan 31, 2019 09:00 AM AMBULATORY - MEDICINE [facility] Mar 10, 2019 12:30 PM AMBULATORY - SURGERY [facility] Mar 21, 2019 09:15 AM AMBULATORY - NONE [facility] Mar 21, 2019 09:30 AM AMBULATORY - MEDICINE [facility] Mar 21, 2019 09:31 AM AMBULATORY - MEDICINE ARTUR BLAS [facility] Mar 21, 2019 10:00 AM AMBULATORY - MEDICINE [place] [facility] Mar 21, 2019 10:01 AM AMBULATORY - MEDICINE ARTUR BLAS V [facility] Mar 26, 2019 10:00 AM AMBULATORY - NONE [facility] MAYFIELD C Apr 03, 2019 10:00 AM AMBULATORY - SURGERY ARTUR CARRASQUILLO Apr 14, 2019 10:00 AM AMBULATORY - SURGERY [facility] Apr 28, 2019 11:00 AM [...] the patient. The data comes from a [facility] treatment facilities. It does not list Allergies/ADRs that were removed or entered in error. Some allergies/ADRs may be reported in t he Immunization section. Allergen Event Date Event Type Reaction(s) Severity Source [place] September 08, 2014 Propensity to adverse reactions to drug (diso rder) [facility] [place] September 08, 2014 Propensity to adverse reactions to drug (diso rder) [facility] 15 Medications: VA dispensed (-15 months) and Non-VA Documented (Obtained Outside V A) Section Date Range: 1) prescriptions processed by a [facility] pharmacy in the last [facility], and 2) all medications recorded in [...] TEST BLOOD GLUCOSE 50 Dec 19, 2019 [id number] September 04, 2019 PAMELA RAMSEY ACCU-CHEK CHARLES PLUS (GLUCOSE) TEST STRIP Discontinued USE 1 STRIP FOR TESTING TWO TIMES PER WEEK - DIRECTED TO TEST BLOOD GLUCOSE 50 Jul 25, 2019 [id number] Nov 12, 2018 PAMELA RAMSEY ALBUTEROL SO4 90MCG/ACTUAT (CFC-F) INHL,ORAL,6.7GM Active INHALE 2 PUFFS BY ORAL INHALATION EVERY 4 HOURS NEEDED FOR BREATHING. SHAKE WELL. RINSE MOUTHPIECE FREQUENTLY TO PREVENT CLOGGING. USE NEEDED FOR SHORTNESS OF AIR/WHEEZING FOR BREATHING. SHAKE WELL. RINSE MOUTHPIECE FREQUENTLY TO PREVENT CLOGGING. USE NEEDED FOR SHORTNESS OF AIR/WHEEZING 1 Dec 19, 2019 [id number] September 04, 2019 PAMELA RAMSEY ALCOHOL PREP PAD Active USE 1 PAD ON SKIN BIW TO CLEAN AND DISINFECT THE SKIN 200 Sep 29, 2020 [id number] Sep 30, 2019 MAURICIO RANKIN [facility] ALCOHOL PREP PAD Discontinued USE 1 PAD ON SKIN BI W TO CLEAN AND DISINFECT THE SKIN 200 Dec 19, 2019 [id number] Jun 06, 2019 PAMELA RAMSEY [facility] ALCOHOL PREP PAD Discontinued USE 1 PAD ON SKIN BI W TO CLEAN AND DISINFECT THE SKIN 200 Jul 25, 2019 [id number] Nov 12, 2018 [facility]AMELA RAMSEY [facility] ASPIRIN 25MG/DIPYRIDAMOLE 200MG CAP,SA Active T CHAPIN 1 CAPSULE BY MOUTH TWO TIMES A DAY - SWALLOW WHOLE. DO NOT CRUSH OR CHEW. FOR RECURRENT TIA/STROKE 180 Dec 19, 2019 [id number] Dec 20, 2018 [facility]ELA RAMSEY [facility] ASPIRIN 25MG/DIPYRIDAMOLE 200MG CAP,SA Discontinued T CHAPIN 1 CAPSULE BY MOUTH TWO TIMES A DAY - SWALLOW WHOLE. DO NOT CRUSH OR CHEW. FOR RECURRENT TIA/STROKE 180 Feb 06, 2019 [id number] Sep 28, 2018 ZACHARY GRECO V [facility] ASPIRIN 81MG TAB,EC Non- VA TAKE ONE TABLET BY MOUTH ONCE A DAY Non-VA Documented by: PADMA LONG nted at: [facility] ATORVASTATIN CA 80MG TAB Active TAKE ONE TABLET BY MOUTH AT BEDTIME FOR CHOLESTEROL - REPORT ANY UNEXPLAINED MUSCLE PAIN/WEAKNESS TO YOUR PROVIDER 90 Dec 19, 2019 [id number] September 04, 2019 PAMELA RAMSEY ATORVASTATIN CA 80MG TAB Discontinued TAKE ONE TABLET BY MOUTH AT BEDTIME FOR CHOLESTEROL - REPORT ANY UNEXPLAINED MUSCLE PAIN/WEAKNESS TO YOUR PROVIDER 90 Dec 20, 2018 [id number] Nov 12, 2018 PAMELA RAMSEY BUDESONIDE 160MCG/FORMOTEROL FUM 4.5MCG/SPRAY INHL,ORAL,10.2 GM Active INHALE 2 PUFFS BY MOUTH TWO TIMES A DAY FOR BREATHING. SHAKE WELL. RINSE MOUTH AND SPIT AFTER EACH USE. 3 Apr 24, 2020 [id number] August 22, [address] [facility] CALCIUM/VITAMIN D TAB No n-VA TAKE BY MOUTH ONCE A DAY Non-V A Documented by: PADMA LONG nted at: [facility] CARBOXYMETHYLCELLULOSE NA 0.5% SOLN,OPH Active INSTILL ONE DROP IN BOTH EYES FOUR TIMES A DAY FOR DRY EYES 15 Feb 01, 2020 [id number] September 03 0 [facility] DICLOFENAC NA 1% GEL,TOP Discontinued APPLY 2 GRAMS A FFECTED AREA TWO TIMES A DAY NEEDED FOR PAIN AND INFLAMMATION. DO NOT EXCEED 16GM DAILY TO ANY AFFECTED JOINT OF LOWER EXTREMITIES. DO NOT EXCEED 8GM DAILY TO ANY AFFECTED JOINT OF UPPER EXTREMITES. DO NOT EXCEED TOTAL DOSE OF 32GM DAILY FOR ALL JOINTS. 100 Oct 31, 2018 [id number] Oct 06, 2018 ANAYELI KIRKPATRICK [facility] DICLOFENAC NA 1% GEL,TOP APPLY 2 GRAMS A FFECTED AREA TWO TIMES A DAY NEEDED FOR PAIN AND INFLAMMATION. DO NOT EXCEED 16GM DAILY TO ANY AFFECTED JOINT OF LOWER EXTREMITIES. DO NOT EXCEED 8GM DAILY TO ANY AFFECTED JOINT OF UPPER EXTREMITES. DO NOT EXCEED TOTAL DOSE OF 32GM DAILY FOR ALL JOINTS. 100 Jan 17, 2019 [id number] Dec 20, 2018 [facility]ELA RAMSEY [facility] FLUTICASONE PROPIONATE 50MCG/SPRAY SOLN,NASAL,16GM Active INSTILL 1 SPRAY IN EACH NOSTRIL ONCE A DAY SHAKE GENTLY BEFORE USE! - MUST BE USED DIRECTED FOR 3 WEEKS TO PROVIDE BENEFIT. * NO EARLY REFILLS * 1UNIT = 30DAYS AT 4 PF/DAY OR 60DAYS AT 2PF/DAY 2 Dec 19, 2019 [id number] August 26, 2019 [facility]EL[facility] RAMSEY [facility] KETOTIFEN 0.025% SOLN,OPH Active INSTILL 1 DROP IN BOTH EYES TWO TIMES A DAY FOR RELIEF OF ALLERGY SYMPTOMS IN EYE(S) 10 Feb 01, 2020 [id number] September 04, 2019 [facility] LANCET,SOFTCLIX Active USE LANCET BIW FOR TESTING BL OOD GLUCOSE DIRECTED 100 Sep 29, 2020 [id number] Sep 30, 2019 MAURICIO RANKIN [facility] LANCET,SOFTCLIX Discontinued USE LANCET BIW FO R TESTING BLOOD GLUCOSE DIRECTED 100 Dec 19, 2019 [id number] Jun 06, 2019 PAMELA RAMSEY LANCET,SOFTCLIX Discontinued USE LANCET BIW FO R TESTING BLOOD GLUCOSE DIRECTED 100 Jul 25, 2019 [id number] Nov 12, 2018 PAMELA RAMSEY LISINOPRIL 40MG TAB Non- VA TAKE ONE-HALF TABLET BY MOUTH EVERY MORNING Non-VA Documented by: PAMELA RAMSEY nted at: [facility] LORATADINE/PSEUDOEPHEDRINE TAB,SA Non-VA TAKE BY MOUTH No n-VA Documented by: JUAN LANG nted at: [facility] MAGNESIUM OXIDE 250MG TAB Non-VA [...] ACID (REPLACES ACIPHEX) 180 Dec 19, 2019 [id number] August 26, 2019 PAMELA RAMSEY POTASSIUM GLUCONATE TAB Non-VA TAKE 595MG BY MOUTH ONCE A DAY N on-VA Documented by: PADMA LONG nted at: [facility] PRASUGREL HCL 10MG TAB N on-VA TAKE ONE TABLET BY MOUTH ONCE A DAY Non-VA Documented by: KATHERINE MATT nted at: [facility] PREGABALIN 150MG CAP,ORAL Non-VA TAKE [...] Documented by: ANAYELI KIRKPATRICKume nted at: [facility] TERBINAFINE HCL 1% CREAM,TOP Active APPLY LIGHT LY TO AFFECTED AREA TWO TIMES A DAY FOR INFECTION 90 Sep 23, 2020 [id number] Sep 24, 2019 ADRIEL HERNANDEZ [facility] UREA 20% CREAM,TOP Active APPLY LIGHTLY (20%) TO AFFECTED AREA TWO TIMES A DAY NEEDED TO PROMOTE HEALING,RUB IN UNTIL COMPLETELY ABSORBED*FOR TOPICAL USE ONLY* APPLY TO BOTH FEET DIRECTED. 90 Sep 25, 2020 [id number] Sep 26, 2019 ADRIEL HERNANDEZ [facility] Problems (Conditions): All historical and current [...] Alcohol intake above recommended sensible limits Active 837236088 PADMA LONG [facility] Allergic conjunctivitis Active 564762970 BONAIREFACUNDONEDA Luda [facility] Bilateral senile combined form cataracts of eyes Active [id number] 9[facility] Bilateral tinnitus Active [id number] CHASTITY JEAN [facility] Coronary arteriosclerosis Active 20887024 September 08, 2014 Entered By: PADMA LONG Comment: hx of ptca to RCA several yrs. agoSeptember 08, 2014 Entered By: PADMA LONG Comment: heart cath 09/01/14, neg. / previous stent to RCA,, via [place] HATCHER, JENNEY R ROBERT [facility] Diabetes mellitus Active 61037962 PAMELA RAMSEY [facility] Disorder of pancreas Active 6984321 September 08, 2014 Entered By: PADMA LONG Comment: 2.5cm low density lseion in bodyMay 2014 Entered By: PADMA LONG Comment: question of communication with pancreatic ductMa2014 Entered By: PADMA LONG Comment: favored to be cystic pancreatic cancerSeptember 08, 2014 Entered By: PADMA LONG Comment: per abdominal CT 09/01/14, [place] PADMA LONG [facility] Dry eyes Active 418434511 NEDA SHAW [facility] Gastro-esophageal reflux disease without esophagitis ( SNOMED CT 137332369) Active 052693011 ALF GUEVARA [facility] Hyperlipidemia (SNOMED CT 02221209) Active 42832981 PAMELA RAMSEY [facility] Lung mass Active 562492596 September 08, 2014 E ntered By: PADMA LONG Comment: 4.5 cm mass, post. segment right upper lobe.September 08, 2014 Entered By: PADMA LONG Comment: mild adenopathy in mediastinum and bilat. hilaMa2014 Entered By: PADMA LONG Comment: most likely related to lung cancerMa2014 Entered By: PADMA LONG Comment: per ct angio of chest with contrast 09/01/14,[place] Entered By: PADMA LONG Comment: per path report- mod. differentiated bronchogenic adenoca. 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 Active 99623391 KATHERINE MATT [facility] Obesity Active 054296660 [facility]ULLOCK [facility] Obstructive sleep apnea syndrome (SNOMED CT 11741154) Active 008681 0[address] [facility] Pancreatic cyst Active 41465831 [facility] Papilloma of right eyelid Active [id number] NEDA SHAW [facility] Polyp of colon Active 65885376 Jan 23 16 Entered By: PADMA LONG Comment: c-scope 01/17/16, multiple benign colonic polypsMar 2017 Entered By: PADMA LONG Comment: c-scope,06/25/17,[facility], three benign polyps- sigmoid colon, transverse colon,cecum. see path report cprs SHARRON TORRES [facility] Pulmonary emphysema Active 48338643 0 BRIANA LESLYE Ireland [facility] Sensorineural hearing loss, bilateral Active 954690560 CHASTITY JEAN [facility] Snoring Active 34978013 S[place] BULLOCK [facility] Type 2 diabetes mellitus without complication Active 999005784 NEDA SHAW [facility] Environmental Allergies (ICD-9-CM 477.9) Inactive 477.9 Dec 18, 2017 PADMA LONG [facility] External hemorrhoids without mention of complication (ICD-9- CM 455.3) Inactive 455.3 Dec 18, 2017 [facility] Impotence of organic origin (ICD-9-CM 607.84) Inactive 607.84 Dec 18, 2017 PADMA LONG [facility] Screening for Lipoid disorders (ICD-9-CM V77.91) Inactive V77.91 Jan 18, 2007 [facility] Stye * (ICD-9-CM 373.11) Inactive 373.11 Dec 18, 201 8 Jan 18, 2007 Entered By: PADMA LONG Comment: bilat lower lids, chronic/recurrent PADMA LONG [facility] Tobacco Use Disorder, Continuous Inactive 305.1 Dec 18, 2017 Jan 18, 2007 Entered By: PADMA LONG Comment: one ppd PADMA LONG [facility] Radiology Reports: +/- 30 days of the encounter No Data Provided for This Section Pathology Reports: +/- 30 days of the encounter No Data Provided for This Section Encounter Notes: All associated encounter notes This section contains the clinical notes associated to the Encounter. Date/Time Encounter Note(s) Provider Source Nov 16, 2018 08:31 AM NONVA CONSULT: LOCAL TITLE: COMMUNITY CARE CONSULT RESULTS NOTE WI STANDARD TITLE: NONVA CONSULT DATE OF NOTE: NOV 16, 2018@08:31 ENTRY DATE: NOV 16, 2018@08:32:13 AUTHOR: ADAM RAY COSIGNER: URGENCY: STATUS: COMPLETED The following Non VA Care consult has been completed. See scanned document for report. NON VA Care Consult Results Rehabilitation Comment: COMMUNITY CARE-PT/VIA [facility]ER[facility]/10/28/18 /gisell/ ADAM RAY Signed: 11/16/2018 08:32 ADAM RAY [facility]
--- OUTSIDE RECORDS SUMMARY | 2019-11-11 02:25 | XMS REPORT | Encounter Summary ---
Author Author Department of [facility] HERBERTH kline Organization Department of [facility] Address [address] [place] [address] Phone Unavailable Care Team Providers Care Floor Mechanic Name Role Phone ADRIEL HERNANDEZ PCP Unavailable Insurance Providers: All historical and current No Data Provided for This Section Selected Encounter This section includes the information on record at [place] for the Encounter. Date/Time Encounter Type Encounter Description Reason Provider Source Dec 05, 2018 12:00 AM Outpatient Encounter EVENT (HISTORICAL) [facility] Encounter Template Text not used by [place] Assessments - Encounter Diagnoses No Data Provided [...] appointme nts. The data comes from all [place] treatment facilities. Appointment Date/Time Appointment Type Appointment Facili ty Name Dec 18, 2018 09:00 AM [facility]ATORY - [facility]ICINE [facility] Dec 18, 2018 10:00 AM AMBULATORY - NONE [facility] Dec 18, 2018 10:01 AM [facility] NONE [facility] Jan 06, 2019 11:00 AM AMBULATORY - NONE [facility] Jan 31, 2019 09:00 AM [facility]ICINE [facility] Mar 10, 2019 12:30 PM AMBULATORY - SURGERY [facility] Mar 21, 2019 09:15 AM AMBULATORY - NONE [facility] Mar 21, 2019 09:30 AM AMBUL[facility]ORY - MEDICINE [facility] Mar 21, 2019 09:31 AM AMBULATORY - MEDICINE [facility] Mar 21, 2019 10:00 AM AMB[facility]ORY - MEDICINE [facility] Mar 21, 2019 10:01 AM AMBULATORY - MEDICINE [facility] Mar 26, 2019 10:00 AM AMBULATORY - NONE [facility] Apr 03, 2019 10:00 AM AMBULATORY - SURGERY [facility] Apr 14, 2019 10:00 AM AMBULATORY - SURGERY [facility] Apr 28, 2019 11:00 [...] Range Comment Dec 18, 2018 08:45 AM [facility] CBC & DIFF Specimen Type: BLOOD No [...] 0.4 % Dec 18, 2018 08:45 AM [facility] [employer] COMPREHENSIVE METABOLIC PA KELLE Specimen Type: PLASMA [...] EGFR >60 Dec 18, 2018 08:45 AM [facility] [employer] LIPID PROFILE(HDL,TRIG,CHO L,LDL) Specimen Type: PLASMA Comment: For eGFR: eGFR results >60 are imprecise. Many variables affect the calculated result. Interpretation of eGFR results >60 must be monitored over time. CHOLESTEROL 172 mg/dL 0-200 TRIGS 190 mg/dL H 0-150 HDL-CHOLESTEROL 40 mg/dL >40 LDL (CALC) 94 mg/dL 0-99.9 Dec 18, 2018 08:45 AM [facility] [employer] PROSTATIC SPECIFIC ANTIGEN (TOTAL) Specimen Type: SERUM [...] Negative Negative Dec 18, 2018 08:45 AM [facility] MICROALBUMIN (ANANT,WI) RANDO M URINE Specimen Type: URINE Comment: Microalbumin is below the linearity of the instrument, unable to calculate the albumin/creatinine ratio. *MICROALBUMIN,RAND < 5 ug/mL *MICROALB/CREAT canc mcg/mg cr *PROT/SALESPERSON STEREO EQUIPMENT RATIO 0.1 *UR PROTEIN 8 mg/dL *UR [...] the patient. The data comes from a [facility] treatment facilities. It does not list Allergies/ADRs that were removed or entered in error. Some allergies/ADRs may be reported in t he Immunization section. Allergen Event Date Event Type Reaction(s) Severity Source [place] September 08, 2014 Propensity to adverse reactions to drug (diso rder) [facility] [place] September 08, 2014 Propensity to adverse reactions to drug (diso rder) [facility] Medications: VA dispensed (-15 months) and Non-VA Documented (Obtained Outside V A) Section Date Range: 1) prescriptions processed by a [facility] pharmacy in the last 15 m [facility], and 2) all medications recorded in [...] other providers that was filled outside the [place]. Or, it may be an over the [...] TEST BLOOD GLUCOSE 50 Dec 19, 2019 [id number] September 04, 2019 PAMELA RAMSEY ACCU-CHEK CHARLES PLUS (GLUCOSE) TEST STRIP Discontinued USE 1 STRIP FOR TESTING TWO TIMES PER WEEK - DIRECTED TO TEST BLOOD GLUCOSE 50 Jul 25, 2019 [id number] Nov 12, 2018 PAMELA RAMSEY ALBUTEROL SO4 90MCG/ACTUAT (CFC-F) INHL,ORAL,6.7GM Active INHALE 2 PUFFS BY ORAL INHALATION EVERY 4 HOURS NEEDED FOR BREATHING. SHAKE WELL. RINSE MOUTHPIECE FREQUENTLY TO PREVENT CLOGGING. USE NEEDED FOR SHORTNESS OF AIR/WHEEZING FOR BREATHING. SHAKE WELL. RINSE MOUTHPIECE FREQUENTLY TO PREVENT CLOGGING. USE NEEDED FOR SHORTNESS OF AIR/WHEEZING 1 Dec 19, 2019 [id number] September 04, 2019 PAMELA RAMSEY CBGUILLERMO ALCOHOL PREP PAD Active USE 1 PAD ON SKIN BIW TO CLEAN AND DISINFECT THE SKIN 200 Sep 29, 2020 [id number] Sep 30, 2019 MAURICIO RANKIN [facility] ALCOHOL PREP PAD Discontinued USE 1 PAD ON SKIN BI W TO CLEAN AND DISINFECT THE SKIN 200 Dec 19, 2019 [id number] Jun 06, 2019 PAMELA RAMSEY ALCOHOL PREP PAD Discontinued USE 1 PAD ON SKIN BI W TO CLEAN AND DISINFECT THE SKIN 200 Jul 25, 2019 [id number] Nov 12, 2018 PAMELA RAMSEY ASPIRIN 25MG/DIPYRIDAMOLE 200MG CAP,SA Active T CHAPIN 1 CAPSULE BY MOUTH TWO TIMES A DAY - SWALLOW WHOLE. DO NOT CRUSH OR CHEW. FOR RECURRENT TIA/STROKE 180 Dec 19, 2019 [id number] Dec 20, 2018 PAMELA RAMSEY ASPIRIN 25MG/DIPYRIDAMOLE 200MG CAP,SA Discontinued T CHAPIN 1 CAPSULE BY MOUTH TWO TIMES A DAY - SWALLOW WHOLE. DO NOT CRUSH OR CHEW. FOR RECURRENT TIA/STROKE 180 Feb 06, 2019 [id number] Sep 28, 2018 ZACHARY GRECO V [facility] ASPIRIN 81MG TAB,EC Non- VA TAKE ONE TABLET BY MOUTH ONCE A DAY Non-VA Documented by: PADMA LONGume nted at: [facility] ATORVASTATIN CA 80MG TAB Active TAKE ONE TABLET BY MOUTH AT BEDTIME FOR CHOLESTEROL - REPORT ANY UNEXPLAINED MUSCLE PAIN/WEAKNESS TO YOUR PROVIDER 90 Dec 19, 2019 [id number] September 04, 2019 PAMELA RAMSEY ATORVASTATIN CA 80MG TAB Discontinued TAKE ONE TABLET BY MOUTH AT BEDTIME FOR CHOLESTEROL - REPORT ANY UNEXPLAINED MUSCLE PAIN/WEAKNESS TO YOUR PROVIDER 90 Dec 20, 2018 [id number] Nov 12, 2018 BRAULIO,PAMELA [facility] BUDESONIDE 160MCG/FORMOTEROL FUM 4.5MCG/SPRAY INHL,ORAL,10.2 GM Active INHALE 2 PUFFS BY MOUTH TWO TIMES A DAY FOR BREATHING. SHAKE WELL. RINSE MOUTH AND SPIT AFTER EACH USE. 3 Apr 24, 2020 [id number] August 22, 2019 LISSA OATES [facility] CALCIUM/VITAMIN D TAB No n-VA TAKE BY MOUTH ONCE A DAY Non-V A Documented by: PADMA LONG nted at: [facility] CARBOXYMETHYLCELLULOSE NA 0.5% SOLN,OPH Active INSTILL ONE DROP IN BOTH EYES FOUR TIMES A DAY FOR DRY EYES Feb 01, 2020 [id number] September 03 0 [facility] DICLOFENAC NA 1% GEL,TOP Discontinued APPLY 2 GRAMS A FFECTED AREA TWO TIMES A DAY NEEDED FOR PAIN AND INFLAMMATION. DO NOT EXCEED 16GM DAILY TO ANY AFFECTED JOINT OF LOWER EXTREMITIES. DO NOT EXCEED 8GM DAILY TO ANY AFFECTED JOINT OF UPPER EXTREMITES. DO NOT EXCEED TOTAL DOSE OF 32GM DAILY FOR ALL JOINTS. 100 Oct 31, 2018 [id number] Oct 06, 2018 ANAYELI KIRKPATRICK [facility] DICLOFENAC NA 1% GEL,TOP APPLY 2 GRAMS A FFECTED AREA TWO TIMES A DAY NEEDED FOR PAIN AND INFLAMMATION. DO NOT EXCEED 16GM DAILY TO ANY AFFECTED JOINT OF LOWER EXTREMITIES. DO NOT EXCEED 8GM DAILY TO ANY AFFECTED JOINT OF UPPER EXTREMITES. DO NOT EXCEED TOTAL DOSE OF 32GM DAILY FOR ALL JOINTS. 100 Jan 17, 2019 [id number] Dec 20, 2018 [facility] FLUTICASONE PROPIONATE 50MCG/SPRAY SOLN,NASAL,16GM Active INSTILL 1 SPRAY IN EACH NOSTRIL ONCE A DAY SHAKE GENTLY BEFORE USE! - MUST BE USED DIRECTED FOR 3 WEEKS TO PROVIDE BENEFIT. * NO EARLY REFILLS * 1UNIT = 30DAYS AT 4 PF/DAY OR 60DAYS AT 2PF/DAY 2 Dec 19, 2019 [id number] August 26, 2019 PAMELA RAMSEY CBGUILLERMO KETOTIFEN 0.025% SOLN,OPH Active INSTILL 1 DROP IN BOTH EYES TWO TIMES A DAY FOR RELIEF OF ALLERGY SYMPTOMS IN EYE(S) Feb 01, 2020 [id number] September 04, 2019 [facility] LANCET,SOFTCLIX Active USE LANCET BIW FOR TESTING BL OOD GLUCOSE DIRECTED 100 Sep 29, 2020 [id number] Sep 30, 2019 MAURICIO RANKIN [facility] LANCET,SOFTCLIX Discontinued USE LANCET BIW FO R TESTING BLOOD GLUCOSE DIRECTED 100 Dec 19, 2019 [id number] Jun 06, 2019 [facility] LANCET,SOFTCLIX Discontinued USE LANCET BIW FO R TESTING BLOOD GLUCOSE DIRECTED 100 Jul 25, 2019 [id number] Nov 12, 2018 PAMELA RAMSEY LISINOPRIL 40MG TAB Non- [facility] TAKE ONE-HALF TABLET BY MOUTH EVERY MORNING Non-VA Documented by: PAMELA RAMSEY nted at: [facility] LORATADINE/PSEUDOEPHEDRINE TAB,SA Non-VA TAKE BY MOUTH No n-VA Documented by: JUAN LANG nted at: [facility] MAGNESIUM OXIDE 250MG TAB Non-VA TAKE 125 [...] ACID (REPLACES ACIPHEX) 180 Dec 19, 2019 [id number] August 26, 2019 PAMELA RAMSEY POTASSIUM GLUCONATE TAB Non-VA TAKE 595MG BY MOUTH ONCE A DAY N on-VA Documented by: PADMA LONG nted at: [facility] PRASUGREL HCL 10MG TAB N on-VA TAKE ONE TABLET BY MOUTH ONCE A DAY Non-VA Documented by: KATHERINE MATT nted at: [facility] PREGABALIN 150MG CAP,ORAL Non-VA [...] ANAYELI KIRKPATRICK Docume nted at: [facility] [place] [facility] TERBINAFINE HCL 1% CREAM,TOP Active APPLY LIGHT LY TO AFFECTED AREA TWO TIMES A DAY FOR INFECTION 90 Sep 23, 2020 [id number] Sep 24, 2019 ADRIEL HERNANDEZ UREA 20% CREAM,TOP Active APPLY LIGHTLY (20%) TO AFFECTED AREA TWO TIMES A DAY NEEDED TO PROMOTE HEALING,RUB IN UNTIL COMPLETELY ABSORBED*FOR TOPICAL USE ONLY* APPLY TO BOTH FEET DIRECTED. 90 Sep 25, 2020 [id number] Sep 26, 2019 ADRIEL HERNANDEZ Problems (Conditions): [...] Alcohol intake above recommended sensible limits Active 158186473 [facility] Allergic conjunctivitis Active 793059049 [facility] Bilateral senile combined form cataracts of eyes Active 56418288270 9108 [facility] Bilateral tinnitus Active [id number] CHASTITY JEAN [facility] Coronary arteriosclerosis Active 72693331 September 08, 2014 Entered By: PADMA LONG Comment: hx of ptca to RCA several yrs. agoSeptember 08, 2014 Entered By: PADMA LONG Comment: heart cath 09/01/14, neg. / previous stent to RCA,, via [place] HATCHER, JENNEY R [facility] Diabetes mellitus Active 35169313 PAMELA RAMSEY [facility] Disorder of pancreas Active 6158410 September 08, 2014 Entered By: PADMA LONG Comment: 2.5cm low density lseion in bodyMay 2014 Entered By: PADMA LONG Comment: question of communication with pancreatic ductMay 2014 Entered By: PADMA LONG Comment: favored to be cystic pancreatic cancerMay 2014 Entered By: PADMA LONG Comment: per abdominal CT 09/01/14, [place] PADMA LONG [facility] Dry eyes Active 965855028 [facility] Gastro-esophageal reflux disease without esophagitis ( SNOMED CT 721418633) Active 867582398 ALF GUEVARA [facility] Hyperlipidemia (SNOMED CT 36600212) Active 45436915 PAMELA RAMSEY [facility] Lung mass Active 472403228 September 08, 2014 E ntered By: PADMA LONG Comment: 4.5 cm mass, post. segment right upper lobe.September 08, 2014 Entered By: PADMA LONG Comment: mild adenopathy in mediastinum and bilat. hilaMay 2014 Entered By: PADMA LONG Comment: most likely related to lung cancerMa2014 Entered By: PADMA LONG Comment: per ct angio of chest with contrast 09/01/14,[place] 2014 Entered By: PADMA LONG Comment: per path report- mod. differentiated bronchogenic adenoca. 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 Active 43524244 KATHERINE MATT [facility] Obesity Active 937166986 [facility] Obstructive sleep apnea syndrome (SNOMED CT 43523231) Active 674862 015 [facility] Pancreatic cyst Active 27399597 JAYLENE GUEVARA [facility] Papilloma of right eyelid Active [id number] [facility] Polyp of colon Active 90453361 Jan 23 16 Entered By: PADMA LONG Comment: c-scope 01/17/16, multiple benign colonic polypsMar 2017 Entered By: PADMA LONG Comment: c-scope,06/25/17,vt-[facility], three benign polyps- sigmoid colon, transverse colon,cecum. see path report cprs [facility]ARRON TORRES [facility] Pulmonary emphysema Active 43070980 0 BRIANA LESLYE [facility] Sensorineural hearing loss, bilateral Active 812352173 CHASTITY JEAN [facility] Snoring Active 57202557 [facility] Type 2 diabetes mellitus without complication Active 427187572 [facility] Environmental Allergies (ICD-9-CM 477.9) Inactive 477.9 Dec 18, 2017 PADMA LONG [facility] External hemorrhoids without mention of complication (ICD-9- CM 455.3) Inactive 455.3 Dec 18, 2017 PADMA LONG [facility] Impotence of organic origin (ICD-9-CM 607.84) Inactive 607.84 Dec 18, 2017 PADMA LONG [facility] Screening for Lipoid disorders (ICD-9-CM V77.91) Inactive V77.91 Jan 18, 2007 PADMA LONG [facility] Stye * (ICD-9-CM 373.11) Inactive 373.11 Dec 18, 201 8 Jan 18, 2007 Entered By: PADMA LONG Comment: bilat lower lids, chronic/recurrent PADMA LONG [facility] Tobacco Use Disorder, Continuous Inactive 305.1 Dec 18, 2017 Jan 18, 2007 Entered By: PADMA LONG Comment: one ppd PADMA LONG [facility] Radiology Reports: +/- 30 days of the encounter No Data Provided for This Section Pathology Reports: +/- 30 days of the encounter No Data Provided for This Section Encounter Notes: All associated encounter notes No Data Provided for This Section
--- OUTSIDE RECORDS SUMMARY | 2019-11-11 02:25 | XMS REPORT | Encounter Summary ---
Author Author Department of [facility] rsHERBERTH Organization Department of [facility] Affai Address [address] [place] [address] Phone Unavailable Care Team Providers Care Dna Sequencing Associate Name Role Phone ADRIEL HERNANDEZ PCP Unavailable Insurance Providers: All historical and current No Data Provided for This Section Selected Encounter This section includes the information on record at [place] for the Encounter. Date/Time Encounter Type Encounter Description Reason Provider Source Nov 11, 2018 01:52 PM Outpatient Encounter TELEPHONE BY STAFF ICD-10-CM I25.10 Athscl heart disease of [place] coronary artery w/o ang pctrs with Provider Comments: Athscl Hrt Disease w/o Ang Pctrs PEDRO KOROMA [facility] IHE Encounter Template Text not used by [place] Assessments - Encounter Diagnoses This section includes the primary and secondary diag noses documented for the Encounter. Date/Time Primary/Secondary Diagnosis Diagnosis Name Provider Source Nov 11, 2018 01:52 PM PRIMARY Athscl heart disea se of [place] coronary artery w/o ang pctPEDRO Hurd [facility] Plan of Treatment: Future Appointments (+ [...] appointme nts. The data comes from all [facility]. Appointment Date/Time Appointment Type Appointment Facili ty Name Dec 18, 2018 09:00 AM AMBULATORY - MEDICINE [facility] Dec 18, 2018 10:00 AM [facility] Dec 18, 2018 10:01 AM [facility]ULAT[facility] - NONE [facility] Jan 06, 2019 11:00 AM [facility] Jan 31[facility] 2019 09:00 AM AM[facility]ULATORY - MEDICINE [facility] Mar 10, 2019 12:30 PM AMBULATORY - SURGERY [facility] Mar 21, 2019 09:15 AM AMBULATORY - NONE [facility] Mar 21, 2019 09:30 AM AMBULATORY - MEDICINE [facility] Mar 21, 2019 09:31 AM AMBULATORY - MEDICINE ARTUR [facility]AS [facility] Mar 21, 2019 10:00 AM AMBULATORY - MEDICINE [facility] Mar 21, 2019 10:01 AM AMBULATORY - MEDICINE ARTUR [facility]AS [facility] Mar 26, 2019 10:00 AM [facility] Apr 03, 2019 10:00 AM AM[facility]ULAT[facility] - SURGERY [facility] Apr 14, 2019 10:00 AM AMBULATORY - SURGERY [facility] Apr 28, 2019 11:00 AM [facility] NONE [facility] Surgical Procedures: All associated to the [...] QUIT 15 YRS OR MORE [facility] Tobacco Use History This section includes a history of the smoking, or tobacco -related health factors, that were collected on or before the date of the Encoun ter. The data comes from the [place] facility where the Encounter took place. Date/Time Smoking Status/Tobacco Use Comment Josseline morris Jun 26, 2018 02:13 PM VA-TOBACCO QUIT 15 YRS OR MORE [facility] Jun 27, 2017 01:39 PM NON-TOBACCO USER [facility] [place] [facility] Jun 27, 2017 01:16 PM NON-TOBACCO USER ARTUR [facility]AS [facility] Jan 06, 2015 02:07 PM NON-TOBACCO USER [facility] Nov 23, 2014 10:38 AM NON-TOBACCO [facility] Oct 26, 2014 10:36 AM NON-TOBACCO USER [facility]AS [facility] Oct 14, 2014 11:09 AM NON-TOBACCO USER ARTUR BLAS [facility] Advance Directives: All historical and current [...] to adverse reactions to drug (diso rder) [facility] 15 PLAVIX September 08, 2014 Propensity to adverse reactions to drug (diso rder) [facility] 15 Medications: VA dispensed (-15 months) and [...] available).Discontinued = A prescription stopped by a [place] provider. It is no longer available to be filled. = A prescription which is too old to fill. This does not refer to the expiration date of the medication in the container. Non-VA = A medication that came from someplace other than a [place] pharmacy. This may be a prescription from [...] TEST BLOOD GLUCOSE 50 Dec 19, 2019 [id number] September 04, 2019 PAMELA RAMSEY GUILLERMO ACCU-CHEK CHARLES PLUS (GLUCOSE) TEST STRIP Discontinued USE 1 STRIP FOR TESTING TWO TIMES PER WEEK - DIRECTED TO TEST BLOOD GLUCOSE 50 Jul 25, 2019 [id number] Nov 12, 2018 PAMELA RAMSEY GUILLERMO ALBUTEROL SO4 90MCG/ACTUAT (CFC-F) INHL,ORAL,6.7GM Active INHALE 2 PUFFS BY ORAL INHALATION EVERY 4 HOURS NEEDED FOR BREATHING. SHAKE WELL. RINSE MOUTHPIECE FREQUENTLY TO PREVENT CLOGGING. USE NEEDED FOR SHORTNESS OF AIR/WHEEZING FOR BREATHING. SHAKE WELL. RINSE MOUTHPIECE FREQUENTLY TO PREVENT CLOGGING. USE NEEDED FOR SHORTNESS OF AIR/WHEEZING Dec 19, 2019 [id number] September 04, 2019 PAMELA RAMSEY CB ALCOHOL PREP PAD Active USE 1 PAD ON SKIN BIW TO CLEAN AND DISINFECT THE SKIN Sep 29, 2020 [id number] Sep 30, 2019 MAURICIO RANKIN CB ALCOHOL PREP PAD Discontinued USE 1 PAD ON SKIN BI W TO CLEAN AND DISINFECT THE SKIN Dec 19, 2019 [id number] Jun 06, 2019 PAMELA RAMSEY CBOC ALCOHOL PREP PAD Discontinued USE 1 PAD ON SKIN BI W TO CLEAN AND DISINFECT THE SKIN 200 Jul 25, 2019 [id number] Nov 12, 2018 PAMELA RAMSEY [facility] ASPIRIN 25MG/DIPYRIDAMOLE 200MG CAP,SA Active T CHAPIN 1 CAPSULE BY MOUTH TWO TIMES A DAY - SWALLOW WHOLE. DO NOT CRUSH OR CHEW. FOR RECURRENT TIA/STROKE 180 Dec 19, 2019 [id number] Dec 20, 2018 PAMELA RAMSEY [facility] ASPIRIN 25MG/DIPYRIDAMOLE 200MG CAP,SA Discontinued T CHAPIN 1 CAPSULE BY MOUTH TWO TIMES A DAY - SWALLOW WHOLE. DO NOT CRUSH OR CHEW. FOR RECURRENT TIA/STROKE 180 Feb 06, 2019 [id number] Sep 28, 2018 ZACHARY GRECO [facility] ASPIRIN 81MG TAB,EC Non- VA TAKE ONE TABLET BY MOUTH ONCE A DAY Non-VA Documented by: PADMA LONG nted at: [facility] ATORVASTATIN [place] 80MG TAB Active TAKE ONE TABLET BY MOUTH AT BEDTIME FOR CHOLESTEROL - REPORT ANY UNEXPLAINED MUSCLE PAIN/WEAKNESS TO YOUR PROVIDER 90 Dec 19, 2019 [id number] September 04, 2019 PAMELA RAMSEY MANDIEGUILLERMO ATORVASTATIN CA 80MG TAB Discontinued TAKE ONE TABLET BY MOUTH AT BEDTIME FOR CHOLESTEROL - REPORT ANY UNEXPLAINED MUSCLE PAIN/WEAKNESS TO YOUR PROVIDER 90 Dec 20, 2018 [id number] Nov 12, 2018 PAMELA RAMSEY MANDIEGUILLREMO BUDESONIDE 160MCG/FORMOTEROL FUM 4.5MCG/SPRAY INHL,ORAL,10.2 GM Active INHALE 2 PUFFS BY MOUTH TWO TIMES A DAY FOR BREATHING. SHAKE WELL. RINSE MOUTH AND SPIT AFTER EACH USE. 3 Apr 24, 2020 [id number] August 22, 2019 LISSA OATES [facility] CALCIUM/VITAMIN D TAB No n-VA TAKE BY MOUTH ONCE A DAY Non-V A Documented by: PADMA LONG nted at: [facility] CARBOXYMETHYLCELLULOSE NA 0.5% SOLN,OPH Active INSTILL ONE DROP IN BOTH EYES FOUR TIMES A DAY FOR DRY EYES 15 Feb 01, 2020 [id number] September 03 0 [facility] DICLOFENAC NA 1% GEL,TOP Discontinued APPLY 2 GRAMS A FFECTED AREA TWO TIMES A DAY NEEDED FOR PAIN AND INFLAMMATION. DO NOT EXCEED 16GM DAILY TO ANY AFFECTED JOINT OF LOWER EXTREMITIES. DO NOT EXCEED 8GM DAILY TO ANY AFFECTED JOINT OF UPPER EXTREMITES. DO NOT EXCEED TOTAL DOSE OF 32GM DAILY FOR ALL JOINTS. 100 Oct 31, 2018 [id number] Oct 06, 2018 ANAYELI KIRKPATRICK ARTUR BLAS [facility] DICLOFENAC NA 1% GEL,TOP APPLY 2 GRAMS A FFECTED AREA TWO TIMES A DAY NEEDED FOR PAIN AND INFLAMMATION. DO NOT EXCEED 16GM DAILY TO ANY AFFECTED JOINT OF LOWER EXTREMITIES. DO NOT EXCEED 8GM DAILY TO ANY AFFECTED JOINT OF UPPER EXTREMITES. DO NOT EXCEED TOTAL DOSE OF 32GM DAILY FOR ALL JOINTS. 100 Jan 17, 2019 [id number] Dec 20, 2018 PAMELA RAMSEY FLUTICASONE PROPIONATE 50MCG/SPRAY SOLN,NASAL,16GM Active INSTILL 1 SPRAY IN EACH NOSTRIL ONCE A DAY SHAKE GENTLY BEFORE USE! - MUST BE USED DIRECTED FOR 3 WEEKS TO PROVIDE BENEFIT. * NO EARLY REFILLS * 1UNIT = 30DAYS AT 4 PF/DAY OR 60DAYS AT 2PF/DAY 2 Dec 19, 2019 [id number] August 26, 2019 PAMELA RAMSEY KETOTIFEN 0.025% SOLN,OPH Active INSTILL 1 DROP IN BOTH EYES TWO TIMES A DAY FOR RELIEF OF ALLERGY SYMPTOMS IN EYE(S) Feb 01, 2020 [id number] September 04, [address] [facility] LANCET,SOFTCLIX Active USE LANCET BIW FOR TESTING BL OOD GLUCOSE DIRECTED Sep 29, 2020 [id number] Sep 30, 2019 MAURICIO RANKIN LANCET,SOFTCLIX Discontinued USE LANCET BIW FO R TESTING BLOOD GLUCOSE DIRECTED Dec 19, 2019 [id number] Jun 06, 2019 PAMELA RAMSEY LANCET,SOFTCLIX Discontinued USE LANCET BIW FO R TESTING BLOOD GLUCOSE DIRECTED Jul 25, 2019 [id number] Nov 12, 2018 PAMELA RAMSEY LISINOPRIL 40MG TAB Non- VA TAKE ONE-HALF TABLET BY MOUTH EVERY MORNING Non-VA Documented by: PAMELA RAMSEY Docume nted at: [facility] LORATADINE/PSEUDOEPHEDRINE TAB,SA Non-VA TAKE BY MOUTH No n-VA Documented by: JUAN LANG nted at: [facility] MAGNESIUM OXIDE 250MG TAB Non-VA TAKE [...] ACID (REPLACES ACIPHEX) 180 Dec 19, 2019 [id number] August 26, 2019 PAMELA RAMSEY POTASSIUM GLUCONATE TAB Non-VA TAKE 595MG BY MOUTH ONCE A DAY N on-VA Documented by: PADMA LONG nted at: [facility] PRASUGREL HCL 10MG TAB N on-VA TAKE ONE TABLET BY MOUTH ONCE A DAY Non-VA Documented by: KATHERINE MATT Docume nted at: [facility] PREGABALIN 150MG CAP,ORAL Non-VA TAKE [...] Documented by: ANAYELI KIRKPATRICK Docume nted at: [facility] TERBINAFINE HCL 1% CREAM,TOP Active APPLY LIGHT LY TO AFFECTED AREA TWO TIMES A DAY FOR INFECTION Sep 23, 2020 [id number] Sep 24, 2019 ADRIEL HERNANDEZ UREA 20% CREAM,TOP Active APPLY LIGHTLY (20%) TO AFFECTED AREA TWO TIMES A DAY NEEDED TO PROMOTE HEALING,RUB IN UNTIL COMPLETELY ABSORBED*FOR TOPICAL USE ONLY* APPLY TO BOTH FEET DIRECTED. Sep 25, 2020 [id number] Sep 26, 2019 ADRIEL HERNANDEZ Problems (Conditions): [...] Alcohol intake above recommended sensible limits Active 450859121 PADMA LONG [facility] Allergic conjunctivitis Active 574661477 [place] M [facility] Bilateral senile combined form cataracts of eyes Active [id number] 9108 [place]IN[place] [facility] Bilateral tinnitus Active [id number] CHASTITY JEAN [facility] Coronary arteriosclerosis Active 66001118 September 08, 2014 Entered By: PADMA LONG Comment: hx of ptca to RCA several yrs. agoSeptember 08, 2014 Entered By: PADMA LONG Comment: heart cath 09/01/14, neg. / previous stent to RCA,, via abida meneses ks HATCHER, JENNEY R ROBERT [facility] Diabetes mellitus Active 57764134 [facility] Disorder of pancreas Active 7637772 September 08, 2014 Entered By: PADMA LONG Comment: 2.5cm low density lseion in bodyMay 2014 Entered By: PADMA LONG Comment: question of communication with pancreatic ductMay 2014 Entered By: PADMA LONG Comment: favored to be cystic pancreatic cancerMay 2014 Entered By: PADMA LONG Comment: per abdominal CT 09/01/14, via abida meneses,PADMA Pradhan [facility] Dry eyes Active 065635867 [place] [facility] Gastro-esophageal reflux disease without esophagitis ( SNOMED CT 547654097) Active 500494861 ALF GUEVARA [facility] Hyperlipidemia (SNOMED CT 37989337) Active 61129815 PAMELA RAMSEY [facility] Lung mass Active 169730197 September 08, 2014 E ntered By: PADMA LONG Comment: 4.5 cm mass, post. segment right upper lobe.September 08, 2014 Entered By: PADMA LONG Comment: mild adenopathy in mediastinum and bilat. [email or web address] Entered By: PADMA LONG Comment: most likely related to lung cancerMa2014 Entered By: PADMA LONG Comment: per ct angio of chest with [facility]01/14[facility] Entered By: PADMA LONG Comment: per path report- mod. differentiated bronchogenic adenoca. 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 Active 14012830 KATHERINE MATT [facility] Obesity Active 502507239 [facility] [facility] Obstructive sleep apnea syndrome (SNOMED CT 04822072) Active 132356 015 [place] [facility] Pancreatic cyst Active 64784065 JAYLENE GUEVARA [facility] Papilloma of right eyelid Active [id number] [facility] SH[facility] Polyp of colon Active 47208120 Jan 23 16 Entered By: PADAM LONG Comment: c-scope 01/17/16, multiple benign colonic polypsJun 28, 2017 Entered By: PADMA LONG Comment: c-scope,06/25/17,[facility], three benign polyps- sigmoid colon, transverse colon,cecum. see path report cprs SHARRON TORRES [facility] Pulmonary emphysema Active 99508113 0 BRIANA GAVIN [facility] Sensorineural hearing loss, bilateral Active 699924740 CHASTITY JEAN [facility] Snoring Active 95701172 S[place] [facility] Type 2 diabetes mellitus without complication Active 998596998 [facility] SH[facility] Environmental Allergies (ICD-9-CM 477.9) Inactive 477.9 Dec 18, 2017 PADMA LONG [facility] External hemorrhoids without mention of complication (ICD-9- CM 455.3) Inactive 455.3 Dec 18, 2017 PADMA LONG [facility] Impotence of organic origin (ICD-9-CM 607.84) Inactive 607.84 Dec 18, 2017 PADMA LONG [facility] Screening for Lipoid disorders (ICD-9-CM V77.91) Inactive V77.91 Jan 18, 2007 [facility] Stye * (ICD-9-CM 373.11) Inactive 373.11 Dec 18, 201 8 Jan 18, 2007 Entered By: PADMA LONG Comment: bilat lower lids, chronic/recurrent PADMA LONG [facility] Tobacco Use Disorder, Continuous Inactive 305.1 Dec 18, 2017 Jan 18, 2007 Entered By: PADMA LONG Comment: one ppd PADMA LONG [facility] Radiology Reports: +/- 30 days of the encounter No Data Provided for This Section Pathology Reports: +/- 30 days of the encounter No Data Provided for This Section Encounter Notes: All associated encounter notes This section contains the clinical notes associated to the Encounter. Date/Time Encounter Note(s) Provider Source Nov 11, 2018 01:52 PM CARE COORDINATION [facility] FOLLOW-UP NOTE: LOCAL TITLE: HT INTERVENTION NOTE STANDARD TITLE: CARE COORDINATION HOME TELEHEALTH FOLLOW-UP NOTE DATE OF NOTE: NOV 11, 2018@13:52 ENTRY DATE: NOV 11, 2018@13:52:55 AUTHOR: PEDRO KOROMA COSIGNER: URGENCY: STATUS: COMPLETED [place] is actively enrolled in the Home Telehealth program. Review of data shows the following out of range responses: Assessment: 13:53 (PLATFORM MATERIAL HANDLER MANAGER) - Alerts generated: question s. Biometric data: blood pressure is 128/80, heart rate is 76, glucose readin g is 116 mg/dL taken on 11/09/2018 at 07:10 (PLATFORM MATERIAL HANDLER MANAGER) and Alert responses: Missed or ski pped med doses. Transmit date/time was 11/09/2018 at 10:54 (PLATFORM MATERIAL HANDLER MANAGER). REPORTS X2 DAYS MISSED, SKIPPED OR FORGETTING MEDICATIONS Intervention(s)/Plan:Karly answers on first ring today. Vet reports he eats later in the morning and sometimes he forgets to take them. Vet reports this is rare for him to forget medications. Vet reports most of his meds he is good on, the Metformin is making him nauseated as he does not eat. CC educates on need for medications and taking them on time. Educated karly on 3 meals and taking metformin with food. (30 minutes before eating). Vet again reports very rare that he forgets medications. TYPE OF ENCOUNTER: Telephone Length of call: 5-10 minutes AWARENESS ONLY. /gisell/ PEDRO KOROMA [facility] Advertising Traffic Manager RN,BSN Signed: 11/11/2018 15:31 Receipt Acknowledged By: 11/11/2018 15:39 /es/ PAMELA Cortes 11/12/2018 12:09 /gisell/ KALA HERNÁNDEZ RN, BSN PEDRO KOROMA [facility]
--- OUTSIDE RECORDS SUMMARY | 2019-11-11 02:25 | XMS REPORT | Encounter Summary ---
Author Author Department of [facility] rsHERBERTH Organization Department of [facility] Affai rs Address [address] [place] [address] Phone Unavailable Care Team Providers Care Commercial Underwriter Name Role Phone ADRILE HERNANDEZ PCP Unavailable Insurance Providers: All historical and current No Data Provided for This Section Selected Encounter This section includes the information on record at [place] for the Encounter. Date/Time Encounter Type Encounter Description Reason Provider Source Dec 05, 2018 03:38 PM Outpatient Encounter TELEPHONE BY STAFF ICD-10-CM I25.10 [facility] heart disease of [place] coronary artery w/o jaden muñoz with Provider Comments: Atherosclerotic Heart Disease of [place] Coronary Artery without Angina Pectoris KALA JONES [facility] IHE Encounter Template Text not used by [place] Assessments - Encounter Diagnoses This section includes the primary and secondary diag noses documented for the Encounter. Date/Time Primary/Secondary Diagnosis Diagnosis Name Provider Source Dec 05, 2018 03:38 PM PRIMARY Athscl heart disea se of [place] coronary artery w/o jaden pctKALA Hammond [facility] Plan of Treatment: Future Appointments (+ [...] appointme nts. The data comes from all [facility]. Appointment Date/Time Appointment Type Appointment Facili ty Name Dec 18, 2018 09:00 AM AMBULATORY - MEDICINE [facility] Dec 18, 2018 10:00 AM [facility] Dec 18, 2018 10:01 AM AM[facility]ULATORY - NONE [facility] Jan 06, 2019 11:00 AM [facility] Jan 31, 2019 09:00 AM AMBULATORY - MEDICINE [facility] Mar 10, 2019 12:30 PM AMBULATORY - SURGERY [facility] Mar 21, 2019 09:15 AM AMBULATORY - NONE [facility] Mar 21, 2019 09:30 AM AMBULATORY - MEDICINE [facility] Mar 21, 2019 09:31 AM AMBULATORY - MEDICINE ARTUR LaresJuan M SIMSMila [facility] Mar 21, 2019 10:00 AM AMBULATORY - MEDICINE [facility] Mar 21, 2019 10:01 AM AMBULATORY - MEDICINE ARTUR LaresJuan M [facility] Mar 26, 2019 10:00 AM [facility] Apr 03, 2019 10:00 AM AMBULATORY - SURGERY ARTUR BLAS [facility] Apr 14, 2019 10:00 AM AMBULATORY - SURGERY [facility] Apr 28, 2019 11:00 AM AMBULATORY - NONE ARTUR BLAS [facility] Surgical Procedures: All associated to the encounter No Data Provided for This Section Lab Results: +/- 30 days of the encounter This section includes the Chemistry and Hematology Lab R esults on record with [place] for the patient. Radiology Reports and Pathology Report s are provided separately, in subsequent sections. Lab Results This section contains the Chemistry/Hematology Results usha t were resulted 30 days before or 30 days after the date of the Encounter. Date/Time Source Result Type Result - Unit Interpretation Reference Range Comment Dec 18, 2018 08:45 AM [facility] CBC & DIFF Specimen Type: [...] % Dec 18, 2018 08:45 AM [facility] COMPREHENSIVE METABOLIC PA KELLE Specimen Type: [...] >60 Dec 18, 2018 08:45 AM [facility] LIPID PROFILE(HDL,TRIG,CHO L,LDL) Specimen Type: PLASMA [...] < 5 ug/mL *MICROALB/CREAT canc mcg/mg cr *PROT/TALENT COORDINATOR RATIO 0.1 *UR PROTEIN 8 mg/dL *UR [...] YRS OR MORE PORSHA BLAS [facility] Tobacco Use History This section includes a history of the smoking, or tobacco -related health factors, that were collected on or before the date of the Encoun ter. The data comes from the [place] facility where the Encounter took place. Date/Time Smoking Status/Tobacco Use Comment [facility] Jun 26, 2018 02:13 PM VA-TOBACCO QUIT 15 YRS OR MORE PORSHA BLAS [facility] Jun 27, 2017 01:39 PM NON-TOBACCO [...] rder) [facility] Medications: [facility] dispensed (-15 months) [...] may be a prescription from either the [place] or other providers that was filled outside the [place]. Or, it may be an over the [...] TEST BLOOD GLUCOSE 50 Dec 19, 2019 [id number] September 04, 2019 PAMELA RAMSEY ACCU-CHEK CHARLES PLUS (GLUCOSE) TEST STRIP Discontinued USE 1 STRIP FOR TESTING TWO TIMES PER WEEK - DIRECTED TO TEST BLOOD GLUCOSE 50 Jul 25, 2019 [id number] Nov 12, 2018 PAMELA RAMSEY CB ALBUTEROL SO4 90MCG/ACTUAT (CFC-F) INHL,ORAL,6.7GM Active INHALE 2 PUFFS BY ORAL INHALATION EVERY 4 HOURS NEEDED FOR BREATHING. SHAKE WELL. RINSE MOUTHPIECE FREQUENTLY TO PREVENT CLOGGING. USE NEEDED FOR SHORTNESS OF AIR/WHEEZING FOR BREATHING. SHAKE WELL. RINSE MOUTHPIECE FREQUENTLY TO PREVENT CLOGGING. USE NEEDED FOR SHORTNESS OF AIR/WHEEZING 1 Dec 19, 2019 [id number] September 04, 2019 PAMELA RAMSEY ALCOHOL PREP PAD Active USE 1 PAD ON SKIN BIW TO CLEAN AND DISINFECT THE SKIN 200 Sep 29, 2020 [id number] Sep 30, 2019 [facility]ICIO RANKIN [facility] ALCOHOL PREP PAD Discontinued USE 1 PAD ON SKIN BI W TO CLEAN AND DISINFECT THE SKIN 200 Dec 19, 2019 [id number] Jun 06, 2019 BRAULIOPAMELA TOMAS [facility] ALCOHOL PREP PAD Discontinued USE 1 PAD ON SKIN BI W TO CLEAN AND DISINFECT THE SKIN 200 Jul 25, 2019 [id number] Nov 12, 2018 BRAULIOPAMELA [facility] ASPIRIN 25MG/DIPYRIDAMOLE 200MG CAP,SA Active T CHAPIN 1 CAPSULE BY MOUTH TWO TIMES A DAY - SWALLOW WHOLE. DO NOT CRUSH OR CHEW. FOR RECURRENT TIA/STROKE 180 Dec 19, 2019 [id number] Dec 20, 2018 BRAULIOPAMELA [facility] ASPIRIN 25MG/DIPYRIDAMOLE 200MG CAP,SA Discontinued T CHAPIN 1 CAPSULE BY MOUTH TWO TIMES A DAY - SWALLOW WHOLE. DO NOT CRUSH OR CHEW. FOR RECURRENT TIA/STROKE 180 Feb 06, 2019 [id number] Sep 28, 2018 ZACHARY GRECO [facility] ASPIRIN 81MG TAB,EC Non- [place] TAKE ONE TABLET BY MOUTH ONCE A DAY Non-VA Documented by: PADMA LONG nted at: [facility] ATORVASTATIN CA 80MG TAB Active TAKE ONE TABLET BY MOUTH AT BEDTIME FOR CHOLESTEROL - REPORT ANY UNEXPLAINED MUSCLE PAIN/WEAKNESS TO YOUR PROVIDER 90 Dec 19, 2019 [id number] September 04, 2019 PAMELA RAMSEY ATORVASTATIN CA 80MG TAB Discontinued TAKE ONE TABLET BY MOUTH AT BEDTIME FOR CHOLESTEROL - REPORT ANY UNEXPLAINED MUSCLE PAIN/WEAKNESS TO YOUR PROVIDER 90 Dec 20, 2018 [id number] Nov 12, 2018 PAMELA RAMSEY BUDESONIDE 160MCG/FORMOTEROL FUM 4.5MCG/SPRAY INHL,ORAL,10.2 GM Active INHALE 2 PUFFS BY MOUTH TWO TIMES A DAY FOR BREATHING. SHAKE WELL. RINSE MOUTH AND SPIT AFTER EACH USE. 3 Apr 24, 2020 [id number] August 22, 2019 LISSA OATES [facility] CALCIUM/VITAMIN D TAB No n-VA TAKE BY MOUTH ONCE A DAY Non-V A Documented by: PADMA LONG nted at: [facility] CARBOXYMETHYLCELLULOSE NA 0.5% SOLN,OPH Active INSTILL ONE DROP IN BOTH EYES FOUR TIMES A DAY FOR DRY EYES 15 Feb 01, 2020 [id number] September 03 0 [facility] DICLOFENAC NA 1% GEL,TOP Discontinued APPLY 2 GRAMS A FFECTED AREA TWO TIMES A DAY NEEDED FOR PAIN AND INFLAMMATION. DO NOT EXCEED 16GM DAILY TO ANY AFFECTED JOINT OF LOWER EXTREMITIES. DO NOT EXCEED 8GM DAILY TO ANY AFFECTED JOINT OF UPPER EXTREMITES. DO NOT EXCEED TOTAL DOSE OF 32GM DAILY FOR ALL JOINTS. 100 Oct 31, 2018 [id number] Oct 06, 2018 ANAYELI KIRKPATRICK [facility] DICLOFENAC NA 1% GEL,TOP APPLY 2 GRAMS A FFECTED AREA TWO TIMES A DAY NEEDED FOR PAIN AND INFLAMMATION. DO NOT EXCEED 16GM DAILY TO ANY AFFECTED JOINT OF LOWER EXTREMITIES. DO NOT EXCEED 8GM DAILY TO ANY AFFECTED JOINT OF UPPER EXTREMITES. DO NOT EXCEED TOTAL DOSE OF 32GM DAILY FOR ALL JOINTS. 100 Jan 17, 2019 [id number] Dec 20, 2018 PAMELA RAMSEY FLUTICASONE PROPIONATE 50MCG/SPRAY SOLN,NASAL,16GM Active INSTILL 1 SPRAY IN EACH NOSTRIL ONCE A DAY SHAKE GENTLY BEFORE USE! - MUST BE USED DIRECTED FOR 3 WEEKS TO PROVIDE BENEFIT. * NO EARLY REFILLS * 1UNIT = 30DAYS AT 4 PF/DAY OR 60DAYS AT 2PF/DAY 2 Dec 19, 2019 [id number] August 26, 2019 PAMELA RAMSEY KETOTIFEN 0.025% SOLN,OPH Active INSTILL 1 DROP IN BOTH EYES TWO TIMES A DAY FOR RELIEF OF ALLERGY SYMPTOMS IN EYE(S) Feb 01, 2020 [id number] September 04, 2019 [facility] LANCET,SOFTCLIX Active USE LANCET BIW FOR TESTING BL OOD GLUCOSE DIRECTED Sep 29, 2020 [id number] Sep 30, 2019 MAURICIO RANKIN LANCET,SOFTCLIX Discontinued USE LANCET BIW FO R TESTING BLOOD GLUCOSE DIRECTED Dec 19, 2019 [id number] Jun 06, 2019 [facility]A RAMSEY [facility] LANCET,SOFTCLIX Discontinued USE LANCET BIW FO R TESTING BLOOD GLUCOSE DIRECTED 100 Jul 25, 2019 [id number] Nov 12, 2018 PAMELA RAMSEY LISINOPRIL 40MG TAB Non- [place] TAKE ONE-HALF TABLET BY MOUTH EVERY MORNING Non-VA Documented by: PAMELA RAMSEY nted at: [facility] LORATADINE/PSEUDOEPHEDRINE TAB,SA Non-VA TAKE BY MOUTH No n-VA Documented by: JUAN LANGume nted at: [facility] MAGNESIUM OXIDE 250MG TAB Non-VA TAKE 125 [...] ACID (REPLACES ACIPHEX) 180 Dec 19, 2019 [id number] August 26, 2019 PAMELA RAMSEY POTASSIUM GLUCONATE TAB Non-VA TAKE 595MG BY MOUTH ONCE A DAY N on-VA Documented by: PADMA LONG nted at: [facility] PRASUGREL HCL 10MG TAB N on-VA TAKE ONE TABLET BY MOUTH ONCE A DAY Non-VA Documented by: KATHERINE MATTume nted at: [facility] PREGABALIN [...] Documented by: ANAYELI KIRKPATRICK Docume nted at: [facility] TERBINAFINE HCL 1% CREAM,TOP Active APPLY LIGHT LY TO AFFECTED AREA TWO TIMES A DAY FOR INFECTION 90 Sep 23, 2020 [id number] Sep 24, 2019 ADRIEL HERNANDEZ UREA 20% CREAM,TOP Active APPLY LIGHTLY (20%) TO AFFECTED AREA TWO TIMES A DAY NEEDED TO PROMOTE HEALING,RUB IN UNTIL COMPLETELY ABSORBED*FOR TOPICAL USE ONLY* APPLY TO BOTH FEET DIRECTED. 90 Sep 25, 2020 [id number] Sep 26, 2019 AMRYADRIEL CB Problems (Conditions): All historical and current [...] Alcohol intake above recommended sensible limits Active 066681167 PADMA LONG [facility] Allergic conjunctivitis Active 905778467 [place] [facility] Bilateral senile combined form cataracts of eyes Active 47742149906 9[address] COLINN[address] [facility] Bilateral tinnitus Active [id number] CHASTITY JEAN [facility] Coronary arteriosclerosis Active 17493424 September 08, 2014 Entered By: PADMA LONG Comment: hx of ptca to RCA several yrs. agoSeptember 08, 2014 Entered By: PADMA LONG Comment: heart cath 09/01/14, neg. / previous stent to RCA,, via abida menesesnc KALA JONES [facility] Diabetes mellitus Active 08636165 PAMELA RAMSEY [facility] Disorder of pancreas Active 6073123 September 08, 2014 Entered By: PADMA LONG Comment: 2.5cm low density lseion in bodyMay 2014 Entered By: PADMA LONG Comment: question of communication with pancreatic ductMay 2014 Entered By: PADMA LONG Comment: favored to be cystic pancreatic cancerMa2014 Entered By: PADMA LONG Comment: per abdominal CT 09/01/14, via abida meneses,nc PADMA LONG [facility] Dry eyes Active 031235703 [place] [facility] [facility] Gastro-esophageal reflux disease without esophagitis ( SNOMED CT 378981708) Active 842840048 ALF GUEVARA [facility] Hyperlipidemia (SNOMED CT 44574819) Active 20687790 PAMELA RAMSEY [facility] Lung mass Active 117511208 September 08, 2014 E ntered By: PADMA [...] differentiated bronchogenic adenoca. 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 Active 40237574 KATHERINE MATT [facility] Obesity Active 320541766 [place] [facility] Obstructive sleep apnea syndrome (SNOMED CT 73624470) Active 914069 015 [place] [facility] Pancreatic cyst Active 70486289 JAYLENE GUEVARA [facility] Papilloma of right eyelid Active [id number] [place] [facility] Polyp of colon Active 31386246 Jan 23 16 Entered By: PADMA OLNG Comment: c-scope 01/17/16, multiple benign colonic polypsJun 28, 2017 Entered By: PADMA LONG Comment: c-scope,06/25/17,me[facility], three benign polyps- sigmoid colon, transverse colon,cecum. see path report [facility] Pulmonary emphysema Active 53094187 0 BRIANA [place] [facility] Sensorineural hearing loss, bilateral Active 305004578 CHASTITY JEAN [facility] Snoring Active 12273081 [place] [facility] Type 2 diabetes mellitus without complication Active 280391946 [place] ARTUR Juan M [facility] Environmental Allergies (ICD-9-CM 477.9) Inactive 477.9 Dec 18, 2017 [facility] External hemorrhoids without mention of complication (ICD-9- CM 455.3) Inactive 455.3 Dec 18, 2017 [facility] Impotence of organic origin (ICD-9-CM 607.84) Inactive 607.84 Dec 18, 2017 [facility] Screening for Lipoid disorders (ICD-9-CM V77.91) Inactive V77.91 Jan 18, 2007 [facility] Stye * (ICD-9-CM 373.11) Inactive 373.11 Dec 18, 201 8 Jan 18, 2007 Entered By: PADMA LONG Comment: bilat lower lids, chronic/recurrent PADMA LONG Juan M BLAS [facility] Tobacco Use Disorder, Continuous Inactive 305.1 Dec 18, 2017 Jan 18, 2007 Entered By: PADMA LONG Comment: one ppd PADMA LONG [facility] Radiology Reports: +/- 30 days of the encounter No Data Provided for This Section Pathology Reports: +/- 30 days of the encounter No Data Provided for This Section Encounter Notes: All associated encounter notes This section contains the clinical notes associated to the Encounter. Date/Time Encounter Note(s) Provider Source Dec 05, 2018 03:38 [facility]: LOCAL TITLE: HT NOTE STANDARD TITLE: CARE COORDINATION HOME TELEHEALTH NOTE DATE OF NOTE: DEC 05, 2018@15:38 ENTRY DATE: DEC 05, 2018@15:38:49 AUTHOR: KALA JONES COSIGNER: URGENCY: STATUS: COMPLETED reached out to dr. arabella miller office. spoke to staff about need for ERMA to be faxed to [facility]. staffer voices will fax ERMA to [employer] beginning of next week. contacted and encouraged to f/u w/ dr. miller's office w/ regarding to following: Secondary Authorization Request [facility] phone number is [phone] and fax is [phone] /gisell/ KALA JONES RN, BSN Signed: 12/05/2018 15:44 Receipt Acknowledged By: 12/05/2018 15:50 /es/ SHANIQUA DOMINGUEZ RN 12/05/2018 15:49 /es/ [facility]A [facility]
--- OUTSIDE RECORDS SUMMARY | 2019-11-11 02:25 | XMS REPORT | Encounter Summary ---
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 Date/Time Encounter Type Encounter Description Reason Provider Source Dec 05, 2018 03:38 PM Outpatient Encounter TELEPHONE BY STAFF ICD-10-CM I25.10 [facility] heart disease of [place] coronary artery w/o jaden muñoz with Provider Comments: Atherosclerotic Heart Disease of [place] Coronary Artery without Angina Pectoris KALA JONES [facility] IHE Encounter Template Text not used by [place] Assessments - Encounter Diagnoses This section includes the primary and secondary diag noses documented for the Encounter. Date/Time Primary/Secondary Diagnosis Diagnosis Name Provider Source Dec 05, 2018 03:38 PM PRIMARY Athscl heart disea se of [place] coronary artery w/o jaden pctKALA Hammond [facility] Plan of Treatment: Future Appointments (+ 6 months) and Future Tests (+/- 45 day s) The Plan of Treatment section includes future care activities for the patient fr om all [place] treatment facilities. This section includes future appointments and fu ture orders which are active, pending or scheduled. Future Appointments This section includes appointments that were scheduled t o occur 6 months from the date of the Encounter, up to a maximum of 20 appointme nts. The data comes from all [facility]. Appointment Date/Time Appointment Type Appointment Facili ty Name Dec 18, 2018 09:00 AM AMBULATORY - MEDICINE [facility] Dec 18, 2018 10:00 AM [facility] Dec 18, 2018 10:01 AM AMBULATORY - NONE [facility] Jan 06, 2019 11:00 AM [facility] Jan 31, 2019 09:00 AM AM[facility]UL[facility] MEDICINE [facility] Mar 10, 2019 12:30 PM AMBULATORY - SURGERY [facility] Mar 21, 2019 09:15 AM AMBULATORY - NONE [facility] Mar 21, 2019 09:30 AM AMBULATORY - MEDICINE [facility] Mar 21, 2019 09:31 AM AMBULATORY - MEDICINE [facility] LaresJuan M SIMSMila [facility] Mar 21, 2019 10:00 AM AMBULATORY - MEDICINE [facility] Mar 21, 2019 10:01 AM AMBULATORY - MEDICINE [facility] LaresJuan M [facility]IE [facility] Mar 26, 2019 10:00 AM [facility] Apr 03, 2019 10:00 AM AMBULATORY - SURGERY [facility]UR BLAS [facility] Apr 14, 2019 10:00 AM AMBULATORY - SURGERY [facility] Apr 28, 2019 11:00 AM AMBULATORY - NONE [facility] BLAS [facility] Surgical Procedures: All associated to the encounter No Data Provided for This Section Lab Results: +/- 30 days of the encounter This section includes the Chemistry and Hematology Lab R esults on record with [place] for the patient. Radiology Reports and Pathology Report s are provided separately, in subsequent sections. Lab Results This section contains the Chemistry/Hematology Results usha t were resulted 30 days before or 30 days after the date of the Encounter. Date/Time Source Result Type Result - Unit Interpretation Reference Range Comment Dec 18, 2018 08:45 AM [facility] CBC & DIFF Specimen Type: BLOOD [...] % Dec 18, 2018 08:45 AM [facility] COMPREHENSIVE METABOLIC PA KELLE Specimen Type: [...] >60 Dec 18, 2018 08:45 AM [facility] LIPID PROFILE(HDL,TRIG,CHO L,LDL) Specimen Type: PLASMA [...] < 5 ug/mL *MICROALB/CREAT canc mcg/mg cr *PROT/BENCH GRINDER RATIO 0.1 *UR PROTEIN 8 mg/dL *UR [...] or tobacco -related health factor, from the [place] facility where the Encounter took place. Date/Time Current Smoking Status Comment Facility Jun 26, 2018 02:13 PM VA-TOBACCO QUIT 15 YRS OR MORE [facility] Tobacco Use History This section includes a history of the smoking, or tobacco -related health factors, that were collected on or before the date of the Encoun ter. The data comes from the [place] facility where the Encounter took place. Date/Time Smoking Status/Tobacco Use Comment [facility] Jun 26, 2018 02:13 PM VA-TOBACCO QUIT 15 YRS OR MORE [facility] Jun 27, 2017 01:39 PM NON-TOBACCO USER [...] patient. The data comes from a [facility] treatment facilities. It does not list Allergies/ADRs that were removed or entered in error. Some allergies/ADRs may be reported in t Immunization section. Allergen Event Date Event Type Reaction(s) Severity Source BRIL[place]TA September 08, 2014 Propensity to adverse reactions to drug (diso rder) [facility], [facility] 15 PLAV[place] September 08, 2014 Propensity to adverse reactions to drug (diso rder) [facility] Medications: [facility] dispensed (-15 [...] care team. The data comes from all [place] treatment facilities. Glossary of Pharmacy Terms:Active = A prescription that can be filled at the local [facility] pharmacy.Active: On Hold = An active prescription that will not be filled until pharmacy resolves the issue.Active: Susp = An active prescription that is not scheduled to be filled yet.Clinic Order = A medication received during a visit to a [place] clinic or emergency department (currently not available).Discontinued [...] may be a prescription from either the [place] or other providers that was filled outside the [place]. Or, it may be an over the [...] TEST BLOOD GLUCOSE 50 Dec 19, 2019 [id number] September 04, 2019 PAMELA RAMSEY ACCU-CHEK CHARLSE PLUS (GLUCOSE) TEST STRIP Discontinued USE 1 STRIP FOR TESTING TWO TIMES PER WEEK - DIRECTED TO TEST BLOOD GLUCOSE 50 Jul 25, 2019 [id number] Nov 12, 2018 PAMELA RAMSEY CB ALBUTEROL SO4 90MCG/ACTUAT (CFC-F) INHL,ORAL,6.7GM Active INHALE 2 PUFFS BY ORAL INHALATION EVERY 4 HOURS NEEDED FOR BREATHING. SHAKE WELL. RINSE MOUTHPIECE FREQUENTLY TO PREVENT CLOGGING. USE NEEDED FOR SHORTNESS OF AIR/WHEEZING FOR BREATHING. SHAKE WELL. RINSE MOUTHPIECE FREQUENTLY TO PREVENT CLOGGING. USE NEEDED FOR SHORTNESS OF AIR/WHEEZING 1 Dec 19, 2019 [id number] September 04, 2019 PAMELA RAMSEY ALCOHOL PREP PAD Active USE 1 PAD ON SKIN BIW TO CLEAN AND DISINFECT THE SKIN 200 Sep 29, 2020 [id number] Sep 30, 2019 [facility]ANKIN [facility] ALCOHOL PREP PAD Discontinued USE 1 PAD ON SKIN BI W TO CLEAN AND DISINFECT THE SKIN 200 Dec 19, 2019 [id number] Jun 06, 2019 BRAULIOPAMELA TOMAS [facility] ALCOHOL PREP PAD Discontinued USE 1 PAD ON SKIN BI W TO CLEAN AND DISINFECT THE SKIN 200 Jul 25, 2019 [id number] Nov 12, 2018 BRAULIOPAMELA [facility] ASPIRIN 25MG/DIPYRIDAMOLE 200MG CAP,SA Active T CHAPIN 1 CAPSULE BY MOUTH TWO TIMES A DAY - SWALLOW WHOLE. DO NOT CRUSH OR CHEW. FOR RECURRENT TIA/STROKE 180 Dec 19, 2019 [id number] Dec 20, 2018 BRAULIOPAMELA [facility] ASPIRIN 25MG/DIPYRIDAMOLE 200MG CAP,SA Discontinued T CHAPIN 1 CAPSULE BY MOUTH TWO TIMES A DAY - SWALLOW WHOLE. DO NOT CRUSH OR CHEW. FOR RECURRENT TIA/STROKE 180 Feb 06, 2019 [id number] Sep 28, 2018 ZACHARY GRECO [facility] ASPIRIN 81MG TAB,EC Non- VA TAKE ONE TABLET BY MOUTH ONCE A DAY Non-VA Documented by: PADMA LONG nted at: [facility] ATORVASTATIN CA 80MG TAB Active TAKE ONE TABLET BY MOUTH AT BEDTIME FOR CHOLESTEROL - REPORT ANY UNEXPLAINED MUSCLE PAIN/WEAKNESS TO YOUR PROVIDER 90 Dec 19, 2019 [id number] September 04, 2019 PAMELA RAMSEY ATORVASTATIN CA 80MG TAB Discontinued TAKE ONE TABLET BY MOUTH AT BEDTIME FOR CHOLESTEROL - REPORT ANY UNEXPLAINED MUSCLE PAIN/WEAKNESS TO YOUR PROVIDER 90 Dec 20, 2018 [id number] Nov 12, 2018 PAMELA RAMSEY BUDESONIDE 160MCG/FORMOTEROL FUM 4.5MCG/SPRAY INHL,ORAL,10.2 GM Active INHALE 2 PUFFS BY MOUTH TWO TIMES A DAY FOR BREATHING. SHAKE WELL. RINSE MOUTH AND SPIT AFTER EACH USE. 3 Apr 24, 2020 [id number] August 22, 2019 LISSA OATES [facility] CALCIUM/VITAMIN D TAB No n-VA TAKE BY MOUTH ONCE A DAY Non-V A Documented by: PADMA LONG nted at: [facility] CARBOXYMETHYLCELLULOSE NA 0.5% SOLN,OPH Active INSTILL ONE DROP IN BOTH EYES FOUR TIMES A DAY FOR DRY EYES 15 Feb 01, 2020 [id number] September 03 0 [facility] DICLOFENAC [...] FOR ALL JOINTS. 100 Oct 31, 2018 [id number] Oct 06, 2018 ANAYELI KIRKPATRICK [facility] DICLOFENAC NA 1% GEL,TOP APPLY 2 GRAMS A FFECTED AREA TWO TIMES A DAY NEEDED FOR PAIN AND INFLAMMATION. DO NOT EXCEED 16GM DAILY TO ANY AFFECTED JOINT OF LOWER EXTREMITIES. DO NOT EXCEED 8GM DAILY TO ANY AFFECTED JOINT OF UPPER EXTREMITES. DO NOT EXCEED TOTAL DOSE OF 32GM DAILY FOR ALL JOINTS. 100 Jan 17, 2019 [id number] Dec 20, 2018 PAMELA RAMSEY FLUTICASONE PROPIONATE 50MCG/SPRAY SOLN,NASAL,16GM Active INSTILL 1 SPRAY IN EACH NOSTRIL ONCE A DAY SHAKE GENTLY BEFORE USE! - MUST BE USED DIRECTED FOR 3 WEEKS TO PROVIDE BENEFIT. * NO EARLY REFILLS * 1UNIT = 30DAYS AT 4 PF/DAY OR 60DAYS AT 2PF/DAY 2 Dec 19, 2019 [id number] August 26, 2019 PAMELA RAMSEY KETOTIFEN 0.025% SOLN,OPH Active INSTILL 1 DROP IN BOTH EYES TWO TIMES A DAY FOR RELIEF OF ALLERGY SYMPTOMS IN EYE(S) Feb 01, 2020 [id number] September 04, 2019 [facility] LANCET,SOFTCLIX Active USE LANCET BIW FOR TESTING BL OOD GLUCOSE DIRECTED Sep 29, 2020 [id number] Sep 30, 2019 MAURICIO RANKIN LANCET,SOFTCLIX Discontinued USE LANCET BIW FO R TESTING BLOOD GLUCOSE DIRECTED Dec 19, 2019 [id number] Jun 06, 2019 [facility] RAMSEY [facility] LANCET,SOFTCLIX Discontinued USE LANCET BIW FO R TESTING BLOOD GLUCOSE DIRECTED 100 Jul 25, 2019 [id number] Nov 12, 2018 PAMELA RAMSEY LISINOPRIL 40MG TAB Non- VA TAKE ONE-HALF TABLET BY MOUTH EVERY MORNING Non-VA Documented by: PAMELA RAMSEY nted at: [facility] LORATADINE/PSEUDOEPHEDRINE TAB,SA Non-VA TAKE BY MOUTH No n-VA Documented by: JUAN LANGume nted at: [facility] MAGNESIUM OXIDE 250MG TAB Non-VA [...] ACID (REPLACES ACIPHEX) 180 Dec 19, 2019 [id number] August 26, 2019 PAMELA RAMSEY POTASSIUM GLUCONATE TAB Non-VA TAKE 595MG BY MOUTH ONCE A DAY N on-VA Documented by: PADMA LONG nted at: [facility] PRASUGREL HCL 10MG TAB N on-VA TAKE ONE TABLET BY MOUTH ONCE A DAY Non-VA Documented by: KATHERINE MATTume nted at: [facility] PREGABALIN 150MG CAP,ORAL Non-VA TAKE 1 CAPSULE BY MOUTH TWO TIMES A DAY Non-VA Docume nted by: PAMELA RAMSEY nted at: [facility] PREGABALIN 150MG CAP,ORAL Non-VA TAKE 1 CAPSULE BY MOUTH TWO TIMES A DAY Non-VA Docume nted by: PAMELA RAMSEY nted at: [facility] SEMAGLUTIDE INJ,SOLN Non -VA INJECT SUBCUTANEOUSLY EVERY WEEK Non-VA Documented by: ANAYELI KIRKPATRICK Docume nted at: [facility] TERBINAFINE HCL 1% CREAM,TOP Active APPLY LIGHT LY TO AFFECTED AREA TWO TIMES A DAY FOR INFECTION 90 Sep 23, 2020 [id number] Sep 24, 2019 ADRIEL HERNANDEZ UREA 20% CREAM,TOP Active APPLY LIGHTLY (20%) TO AFFECTED AREA TWO TIMES A DAY NEEDED TO PROMOTE HEALING,RUB IN UNTIL COMPLETELY ABSORBED*FOR TOPICAL USE ONLY* APPLY TO BOTH FEET DIRECTED. 90 Sep 25, 2020 [id number] Sep 26, 2019 MARYADRIEL CB Problems (Conditions): All historical and current Section Date Range: From patient's date of to the date document was create d. This section includes a list of Problems (Conditions) know n to [facility] for the patient. It includes both active and inacti ve problems (conditions). The data comes from all [place] treatment facilities. Problem Status Problem Code Date of Onset Date of Resolution Comm ent(s) Provider Source Alcohol intake above recommended sensible limits Active 970143881 PADMA LONG [facility] Allergic conjunctivitis Active 776655571 NEDA SHAW [facility] Bilateral senile combined form cataracts of eyes Active [id number] 9108 [place] [facility] Bilateral tinnitus Active 5367669964151 CHASTITY JEAN [facility] Coronary arteriosclerosis Active 34878852 September 08, 2014 Entered By: PADMA LONG Comment: hx of ptca to RCA several yrs. agoSeptember 08, 2014 Entered By: PADMA LONG Comment: heart cath 09/01/14, neg. / previous stent to RCA,, via abida menesesnj KALA JONES [facility] Diabetes mellitus Active 17813680 PAMELA RAMSEY [facility] Disorder of pancreas Active 1218367 September 08, 2014 Entered By: PADMA LONG Comment: 2.5cm low density lseion in bodyMay 2014 Entered By: PADMA LONG Comment: question of communication with pancreatic ductMay 2014 Entered By: PADMA LONG Comment: favored to be cystic pancreatic [email or web address] Entered By: PADMA LONG Comment: per abdominal CT 09/01/14, via abida meneses,[place] PADMA LONG [facility] Dry eyes Active 805476860 N[facility] SHAW [facility] Gastro-esophageal reflux disease without esophagitis ( SNOMED CT 041520894) Active 296922629 ALF GUEVARA [facility] Hyperlipidemia (SNOMED CT 25538428) Active 13652500 PAMELA RAMSEY [facility] Lung mass Active 381637143 September 08, 2014 E ntered By: PADMA LONG Comment: 4.5 cm mass, post. segment right upper lobe.September 08, 2014 Entered By: APDMA LONG Comment: mild adenopathy in mediastinum and bilat. [email or web address] Entered By: PADMA LONG Comment: most likely related to lung cancerMa2014 Entered By: PADMA LONG Comment: per ct angio of chest with contrast 09/01/14,via abida meneses ksJun 2014 Entered By: PADMA LONG Comment: per path report- mod. differentiated bronchogenic adenoca. 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 Active 34520224 KATHERINE MATT [facility] Obesity Active 606320159 [facility] Obstructive sleep apnea syndrome (SNOMED CT 88447197) Active 329775 015 [place] [facility] Pancreatic cyst Active 24126916 JAYLENE GUEVARA [facility] Papilloma of right eyelid Active 237072128880204 [place] [facility] Polyp of colon Active 95924416 Jan 23 16 Entered By: PADMA LONG Comment: c-scope 01/17/16, multiple benign colonic polypsJun 28, 2017 Entered By: PADMA LONG Comment: c-scope,06/25/17,tn-[facility], three benign polyps- sigmoid colon, transverse colon,cecum. see path report [facility] Pulmonary emphysema Active 11151785 0 BRIANA [place] [facility] Sensorineural hearing loss, bilateral Active 449088209 CHASTITY JEAN [facility] Snoring Active 40850043 [facility] [place] [facility] Type 2 diabetes mellitus without complication Active 149366998 [facility] ARTUR [place] [facility] Environmental Allergies (ICD-9-CM 477.9) Inactive 477.9 Dec 18, 2017 [facility] External hemorrhoids without mention of complication (ICD-9- CM 455.3) Inactive 455.3 Dec 18, 2017 [facility] Impotence of organic origin (ICD-9-CM 607.84) Inactive 607.84 Dec 18, 2017 [facility] Screening for Lipoid disorders (ICD-9-CM V77.91) Inactive V77.91 Jan 18, 2007 PADMA LONG Juan [facility] Stye * (ICD-9-CM 373.11) Inactive 373.11 Dec 18, 201 8 Jan 18, 2007 Entered By: PADMA LONG Comment: bilat lower lids, chronic/recurrent PADMA LONG [facility] Tobacco Use Disorder, Continuous [...] Encounter Note(s) Provider Source Dec 05, 2018 03:53 PM CARE COORDINATION HOME TELE EALT DISCHARGE NOTE: [facility] STANDARD TITLE: CARE COORDINATION HOME TELEHEALTH DISCHARGE NOTE DATE OF NOTE: DEC 05, 2018@15:53 ENTRY DATE: DEC 05, 2018@15:53:33 AUTHOR: KALA JONES EXP COSIGNER: URGENCY: STATUS: COMPLETED see ht discharge note. /es/ KALA JONES RN, BSN Signed: 12/05/2018 15:53 [facility]ONES [facility] Dec 05, 2018 03:44 PM CARE COORDINATION HOME TELEH EALTH DISCHARGE NOTE: LOCAL TITLE: HT DISCHARGE NOTE STANDARD TITLE: CARE COORDINATION HOME TELEHEALTH DISCHARGE NOTE DATE OF NOTE: DEC 05, 2018@15:44 ENTRY DATE: DEC 05, 2018@15:44:44 AUTHOR: KALA JONESIGNER: URGENCY: STATUS: COMPLETED HOME TELEHEALTH (HT) DISCHARGE NOTE Dates of enrollment: No 'HT Enrollment Starting Date' data found No enrollment reason documented To: Date: December 05, 2018 HT PROGRAM DIAGNOSIS(ES): Other: CAD Summary of Program Enrollment/Participation: trends last 180 days: HERBERTH BOB (-[id number]) Vital Sign Data for: 06/09/2018 - 12/05/2018 (All times are OPERATIONAL INTELLIGENCE ANALYST; All weights are lbs) Primary DMP: CAD Comorbid(s): Summary Weight Sys BP [place] BP Heart Rate Glucose SpO2 FEV1 PEF Temp High 221.1 141 94 102 168 Low 116.5 103 65 58 81 Average 205.1 125 82 77 115 no documented ed visits nor hospitalizations in the last year. con't f/u w/ neuro - no changes to plan of care. con't f/u w/ oncology - "stable". con't f/u w non va cardio. REASON FOR DISCHARGE: Has met goals; no longer needs services /Caregiver verbalizes understanding of the reason(s) for discharge: Yes Questions and concerns have been addressed: Yes Technology "inactivated" as appropriate on [facility] (ROES) and Vendor systems: Yes reviewed that retrieval kit to be sent and how to return equipment free of charge. will order A & D machine so that may con't to montior bp at home. FOLLOW-UP: Referred to Primary Care and provider Other: also encouraged to con't f/u w/ non va cardio TYPE OF ENCOUNTER: Telephone Length of call: 5-10 minutes /gisell/ KALA JONES RN, BSN Signed: 12/05/2018 15:53 Receipt Acknowledged By: 12/06/2018 08:04 /gisell/ PAMELA Cortes 12/24/2018 12:44 /gisell/ KALA FAIR [facility]
--- OUTSIDE RECORDS SUMMARY | 2019-11-11 02:31 | XMS REPORT ---
Author Author Teddy RIGGS Organization 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 Designer Name Role Phone ONEILJAYE Unavailable PROBLEMS Type Condition ICD9-CM Code [id number] Code Onset Dates Condition S tatus SNOMED Code Problem Type 2 diabetes mellitus without complications E11 .9 Active 746656547 Problem Essential (primary) hypertension I10 Active 59522921 Problem Type 2 diabetes mellitus with foot ulcer E11.621 Active 443151617 Problem Atherosclerotic heart diseas e of [place] coronary artery without angina pectoris I25.10 Active 199630557197017 Problem Controlled type 2 diabetes m ellitus without complication, without long- term current use of insulin E11.9 Active 931161019 Problem Neuropathy G62.9 Active 361919816 Problem Seasonal allergic rhinitis due to other allergic trigger J30.89 Active 213980550 Problem Bilateral tinnitus H93.13 Active 4 881600747688 Problem Type 2 diabetes mellitus with hyperglycemia E11.65 Active 275560688692239 Problem Type 2 diabetes 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.49 Active 34884260 Problem Observed sleep apnea G47.30 Active 73072293 Problem Other elevated white blood cell (WBC) count D72.82 8 Active 150024715 Problem Tinnitus of both ears H93.13 Active 0359679431617 Problem Hypertension, benign I10 Active 38392127 Problem Tinnitus of left ear H93.12 Active 5116650232761 Problem Elevated white blood cell count, unspecified D72.8 29 Active 169119826 Problem Type 2 diabetes mellitus wit h diabetic neuropathy, without long-term current use of insulin E11.40 Active 35898 006 Problem Cerebrovascular accident (CVA) due to em bolism of other cerebral artery I63.49 Active 609607356 Problem Altered mental status R41.82 Active 081945755 Problem Gastroesophageal reflux disease with esophagitis K 21.0 Active 750909569 ALLERGIES No Information ENCOUNTERS Encounter Location Date Diagnosis [facility] [address] [facility] [id number] [address] [place] [phone] 24 Sep, 2019 Encounter for screening labo ratory testing for COVID-[address] [facility] [address] [facility] [id number] [address] [place] [phone] 24 Sep, 2019 [facility] [address] [facility] [id number] [address] [place] [phone] 16 Sep, 2019 Type 2 diabetes mellitus wit hout complications E11.9 [facility] [address] [facility] [id number] [address] [place] [id number] 16 Sep, 2019 [facility] [address] [place] [id number] [address] [place] [phone] 03 Sep, 2019 Essential (primary) hyperten felecia I10 [facility] [address] [facility] [id number] [address] [place] [phone] August, Type 2 diabetes mellitus wit hout complications E11.9 [facility] [address] [place] [id number] [address] [place] [phone] 15 Jul, 2019 Essential (primary) hyperten felecia I10 and Type 2 diabetes mellitus without complications E11.9 [facility] [address] [facility] [id number] [address] [place] [phone] Jun, Type 2 diabetes mellitus wit hout complications E11.9 [facility] [address] [facility] [id number] [address] [place] [phone] Jun, [facility] [address] [facility] [id number] [address] [place] [phone] Jun, Type 2 diabetes mellitus wit hout complications E11.9 [facility] [address] [facility] [id number] [address] [place] [id number] 05 Jun, 2019 [facility] [address] [facility] [id number] [address] [place] [phone] 28 May, 2019 [facility] [address] [place] [id number] [address] [place] [id number] May, Type 2 diabetes mellitus wit hout complications E11.9 [facility] [address] [id number] [address] [place] [phone] Mar, Neuropathy G62.9 [facility] [address] [id number] [address] [place] [phone] Mar, [facility] [address] [id number] [address] [place] [phone] Dec, [facility] [address] [id number] [address] [place] [phone] Nov, Actinic keratoses L57.0 [facility] [address] [id number] [address] [place] [phone] Nov, [facility] [address] [id number] [address] [place] [phone] Nov, Type 2 diabetes mellitus wit hout complications E11.9 [facility] [address] [id number] [address] [place] [phone] Oct, Controlled type 2 diabetes m ellitus without complication, without long-term current use of insulin E11.9 [facility] [address] [id number] [address] [place] [phone] Oct, [facility] [address] [id number] [address] [place] [phone] Oct, [facility] [address] [id number] [address] [place] [phone] Oct, Controlled type 2 diabetes m ellitus without complication, without long-term current use of insulin E11.9 [facility] [address] [id number] [address] [place] [phone] Oct, Essential (primary) hyperten felecia I10 ; Type 2 diabetes mellitus without complications E11.9 ; Actinic keratoses L57.0 and Seborrheic keratoses L82.1 [facility] [address] [id number] [address] [place] [address] Oct, [facility] [address] [facility] [id number] [address] [place] [phone] Sep, Hypertension, benign I10 and Controlled type 2 diabetes mellitus without complication, without long-term current use of insulin E11.9 [facility] [address] [id number] [address] [place] [phone] Sep, Other elevated white blood c ell (WBC) count D72.828 [facility] [address] [id number] [address] [place] [phone] August, Neuropathy G62.9 [facility] [address] [id number] [address] [place] [id number] August, Other elevated white blood c ell (WBC) count D72.828 [facility] [address] [facility] [id number] [address] [place] [phone] August, Type 2 diabetes mellitus wit h foot ulcer E11.621 [facility] [address] [id number] [address] [place] [phone] Jul, [facility] [address] [facility] [id number] [address] [place] [phone] Jul, Neuropathy G62.9 [facility] [address] [facility] [id number] [address] [place] [phone] Jun, [facility] [address] [facility] [id number] [address] [place] [phone] Jun, Neuropathy G62.9 [facility] [address] [facility] [id number] [address] [place] [phone] May, Neuropathy G62.9 [facility] [address] [facility] [id number] [address] [place] [phone] Mar, Type 2 diabetes mellitus wit hout complications E11.9 [facility] [address] [facility] [id number] [address] [place] [phone] Feb, Neuropathy G62.9 [facility] [address] [address] 13 Feb, 2018 Actinic keratoses L57.0 [place] [address] [address] 09 Feb, 2018 Type 2 diabetes mellitus wit hout complications E11.9 ; Tobacco abuse Z72.0 ; Tobacco abuse counseling Z71.6 and Atherosclerotic heart disease of [place] coronary artery without angina pectoris I25.10 [place] [address] [address] 08 Feb, 2018 Type 2 diabetes mellitus wit hout complications E11.9 ; Tobacco abuse Z72.0 ; Tobacco abuse counseling Z71.6 ; Atherosclerotic heart disease of [place] coronary artery without angina pectoris I25.10 ; Seborrheic keratoses L82.1 and Gastroesophageal reflux disease with esophagitis K21.0 [facility] [place] [address] [address] Jan, Abscess L02.91 [place] [address] [address] Jan, Neuropathy G62.[address] [address] 20 Dec, 2017 Neuropathy G62.9 ; Cerebrova scular accident (CVA) due to embolism of other cerebral artery I63.49 and Seasonal allergic rhinitis due to other allergic trigger J30.89 [facility] [place] [address] [address] Dec, Altered mental status R41.[address] [address] 16 Nov, 2017 Type 2 diabetes mellitus wit h diabetic neuropathy, without long- term current use of insulin E11.40 [place] [address] [address] 17 Oct, 2017 Neuropathy G62.9 ; Type 2 di abetes mellitus with other diabetic neurological complication E11.49 ; Type 2 diabetes mellitus with hyperglycemia E11.65 ; Actinic keratoses L57.0 and Observed sleep apnea G47.30 [facility] [address] [facility] [id number] [address] [place] [address] Sep, Tinnitus of both ears H93.13 and Actinic keratitis, unspecified laterality H16.139 [facility] [address] [address] August, Type 2 diabetes mellitus wit hout complications E11.9 and Controlled type 2 diabetes mellitus without complication, without long-term current use of insulin E11.9 [facility] [address] [facility] [id number] [address] August, Seborrheic keratoses L82.1 a nd Tinnitus of left ear H93.12 [place] [address] [address] Jul, Controlled type 2 diabetes m ellitus without complication, without long-term current use of insulin E11.9 ; Seborrheic keratoses L82.1 ; Bilateral tinnitus H93.13 and Seasonal allergic rhinitis due to other allergic trigger J30.89 [facility] [address] [place] [id number] [place] [id number] May, Encounter for dental examina tion Z01.20 [facility] [id number] [place] [id number] Jan, Encounter for dental examina tion Z01.20 [facility] [address] [place] [id number] [address] [place] [phone] Jan, Type 2 diabetes mellitus wit hout complications E11.9 and Acute non- recurrent maxillary sinusitis J01.00 [facility] [address] [place] [id number] [place] [address] Dec, Right ear impacted cerumen H 61.21 and Acute suppurative otitis media of right ear without spontaneous rupture of tympanic membrane, recurrence not specified H66.001 [facility] [address] [place] [id number] [place] [phone] Nov, Type 2 diabetes mellitus wit hout complications E11.9 and Neuropathy G62.9 [facility] [address] [id number] [address] [place] [address] [id number] Oct, Encounter for dental examina tion Z01.20 [facility] [address] [id number] [address] [place] [address] [id number] Jun, Dental examination Z01.20 [facility] [address] [facility] [id number] [address] [place] [phone] 16 Jun, 2016 Atherosclerotic heart diseas e of [place] coronary artery without angina pectoris I25.10 [facility] [address] [facility] [id number] [address] [place] [phone] 15 Jun, 2016 Atherosclerotic heart diseas e of [place] coronary artery without angina pectoris I25.10 [facility] [address] [facility] [id number] [address] [place] [phone] Jun, Type 2 diabetes mellitus wit hout complications E11.9 [facility] [address] [id number] [address] [place] [address] [id number] May, Encounter for dental examina tion Z01.20 [facility] [address] [id number] [address] [place] [address] [id number] Apr, Dental caries K02.9 [facility] [address] [id number] [address] [place] [address] [id number] Apr, Dental examination Z01.20 [facility] [address] 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 [address] [facility] [id number] [address] [place] [id number] Jul, Diabetes mellitus without me ntion of complication, type II or unspecified type, not stated as uncontrolled 250.00 [place] [address] [id number] [address] [place] [phone] [address], [address] [facility] [address] [id number] [address] [place] [phone] 07 Jan, 2015 Encounter for immunization Z 23 [facility] [address] [id number] [address] [place] [address] [id number] 21 Dec, [address] [facility] [address] [id number] [address] [place] [id number] 07 Nov, 2014 Cancer of lung, upper lobe [address] [facility] [address] [id number] [address] [place] [phone] Sep, Lung cancer 162.9 ; CAD (cor onary artery disease) 414.[address] [facility] [address] [id number] [address] [place] [id number] [address] Jul, 2014 [facility] [address] [id number] [address] [place] [phone] Jul, [facility] [address] [id number] [address] [place] [phone] Jun, [facility] [address] [id number] [address] [place] [phone] Jun, [facility] [address] [id number] [address] [place] [phone] Mar, [facility] [address] [id number] [address] [place] [phone] Mar, [facility] [address] [id number] [address] [place] [phone] Jan, [facility] [address] [id number] [address] [place] [phone] Jan, [facility] [address] [id number] [address] [place] [phone] Jan, [facility] [address] [id number] [address] [place] [address] [place] [address] Jan, [facility] [address] [id number] [address] [place] [address], [place] [address] Jan, [facility] [address] [id number] [address] [place] [address], [place] [address] Jan, [facility] [address] [id number] [address] [place] [address], [place] [address] Dec, [facility] [address] [id number] [address] [place] [address], [place] [address] Dec, [facility] [address] [id number] [address] [place] [address], [place] [address] Oct, [facility] [address] [id number] [address] [place] [address], [place] [address] Oct, [facility] [address] [id number] [address] [place] [address], [place] [address] Sep, [facility] [address] [id number] [address] [place] [address], [place] [address] Sep, [facility] [address] [id number] [address] [place] [address], [place] [address] August, [facility] [address] [id number] [address] [place] [address], [place] [address] August, [facility] [address] [id number] [address] [place] [address], [place] [address] August, [facility] [address] [id number] [address] [place] [address], [place] [address] August, [facility] [address] [id number] [address] [place] [address], [place] [address] August, [facility] [address] [id number] [address] [place] [address], [place] [address] August, [facility] [address] [id number] [address] [place] [address], [place] [address] Jun, [facility] [address] [id number] [address] [place] [address], [place] [address] Jun, [facility] [address] [id number] [address] [place] [address], [place] [address] May, [facility] [address] [id number] [address] [place] [address], [place] [address] May, [facility] [address] [id number] [address] [place] [address], [place] [address] May, [facility] [address] [id number] [address] [place] [address], [place] [address] May, [facility] [address] [id number] [address] [place] [address], [place] [address] Apr, [facility] [address] [id number] [address] [place] [address], [place] [address] Apr, [facility] [address] [id number] [address] [place] [address], [place] [address] Mar, [facility] [address] [id number] [address] [place] [address], [place] [address] Mar, [facility] [address] [id number] [address] [place] [address], [place] [address] Mar, [facility] [address] [id number] [address] [place] [address], [place] [address] Mar, [facility] [address] [id number] [address] [place] [address], [place] [address] Mar, [facility] [address] [id number] [address] [place] [address], [place] [address] Mar, [facility] [address] [id number] [address] [place] [address], [place] [address] Mar, [facility] [address] [id number] [address] [place] [address], [place] [address] Mar, [facility] [address] [id number] [address] [place] [phone] Mar, [facility] [address] [id number] [address] [place] [address], [place] [address] Feb, [facility] [address] [id number] [address] [place] [address], [place] [address] Feb, [facility] [address] [id number] [address] [place] [address], [place] [address] Jan, [facility] [address] [id number] [address] [place] [address], [place] [address] Jan, [facility] [address] [id number] [address] [place] [address], [place] [address] Jan, [facility] [address] [id number] [address] [place] [address], [place] [address] Jan, [facility] [address] [id number] [address] [place] [address], [place] [address] Jan, [facility] [address] [id number] [address] [place] [address], [place] [address] Dec, [facility] [address] [id number] [address] [place] [address], [place] [address] Nov, [facility] [address] [id number] [address] [place] [address], [place] [address] Nov, [facility] [address] [id number] [address] [place] [address], [place] [address] Nov, [facility] [address] [id number] [address] [place] [id number] Oct, [facility] [address] [id number] [address] [place] [address], [place] [address] Oct, [facility] [address] [id number] [address] [place] [address], [place] [address] Sep, [facility] [address] [id number] [address] [place] [address], [place] [id number] Sep, [facility] [address] [id number] [address] [place] [address], [place] [id number] August, [facility] [address] [id number] [address] [place] [address], [place] [address] August, [facility] [address] [id number] [address] [place] [address], [place] [address] August, [facility] [address] [id number] [address] [place] [address], [place] [address] August, [facility] [address] [id number] [address] [place] [address], [place] [id number] Jul, [facility] [address] [id number] [address] [place] [address], [place] [address] Jul, [facility] [address] [id number] [address] [place] [address], [place] [id number] Jun, [facility] [address] [id number] [address] [place] [address], [place] [address] May, [facility] [address] [id number] [address] [place] [address], [place] [address] May, [facility] [address] [id number] [address] [place] [address], [place] [address] May, [facility] [address] [id number] [address] [place] [address], [place] [address] May, [facility] [address] [id number] [address] [place] [address], [place] [address] May, [facility] [address] [id number] [address] [place] [address], [place] [address] May, [facility] [address] [id number] [address] [place] [address], [place] [address] May, [facility] [address] [id number] [address] [place] [address], [place] [address] August, [facility] [address] [id number] [address] [place] [id number] Jul, [facility] [address] [id number] [address] [place] [id number] Jul, [facility] [address] [id number] [address] [place] [phone] May, [facility] [address] [id number] [address] [place] [id number] May, [facility] [address] [id number] [address] [place] [id number] Mar, [facility] [address] [id number] [address] [place] [id number] Sep, [facility] [address] [id number] [address] [place] [id number] Jul, [facility] [facility] [address] [id number] [address] [place] [id number] Mar, [facility] [address] [id number] [address] [place] [id number] Feb, [facility] [address] [id number] [address] [place] [id number] Feb, IMMUNIZATIONS No Known Immunizations SOCIAL HISTORY Never Assessed REASON FOR VISIT PLAN OF CARE VITAL SIGNS MEDICATIONS Unknown [...] History right upper lobe of lung 7 n odes in the top and 8 lower quad removed 10/09/14 Surgical History port placement 11/24/14 Hospitalization History stroke/ lung cancer diagnoses 5 Hospitalization History right upper lobe of lung removed 09/21 01/05 Hospitalization History possible stroke 12/2017
--- OUTSIDE RECORDS SUMMARY | 2019-11-11 02:31 | XMS REPORT ---
Author Author Teddy Elkins Doctor Organization [facility] Address Unknown Phone Unavailable Care Team Providers Care Learning Officer Name Role Phone Migration, Doctor Unavailable Unavailable PROBLEMS Type Condition ICD9-CM Code [id number] Code Onset Dates Condition S tatus SNOMED Code Problem Type 2 diabetes mellitus without complications E11 .9 Active 241813661 Problem Essential (primary) hypertension I10 Active 98122541 Problem Type 2 diabetes mellitus with foot ulcer E11.621 Active 183400795 Problem Atherosclerotic heart diseas e of [place] coronary artery without angina pectoris I25.10 Active [id number] Problem Controlled type 2 diabetes m ellitus without complication, without long- term current use of insulin E11.9 Active 905984354 Problem Neuropathy G62.9 Active 670760195 Problem Seasonal allergic rhinitis due to other allergic trigger J30.89 Active 016629718 Problem Bilateral tinnitus H93.13 Active 4 045076565336 Problem Type 2 diabetes mellitus with hyperglycemia E11.65 Active 466750958452057 Problem Type 2 diabetes 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.49 Active 38123518 Problem Observed sleep apnea G47.30 Active 75631517 Problem Other elevated white blood cell (WBC) count D72.82 8 Active 833584552 Problem Tinnitus of both ears H93.13 Active 5673661280855 Problem Hypertension, benign I10 Active 95718044 Problem Tinnitus of left ear H93.12 Active 1581670736023 Problem Elevated white blood cell count, unspecified D72.8 29 Active 042525841 Problem Type 2 diabetes mellitus wit h diabetic neuropathy, without long-term current use of insulin E11.40 Active 89253 006 Problem Cerebrovascular accident (CVA) due to em bolism of other cerebral artery I63.49 Active 501711969 Problem Altered mental status R41.82 Active 442750785 Problem Gastroesophageal reflux disease with esophagitis K 21.0 Active 194136124 ALLERGIES No Information ENCOUNTERS Encounter Location Date Diagnosis [facility] [address] [id number] [address] [place] [address] Oct, Type 2 diabetes mellitus wit hout complications E11.9 [facility] [address] [id number] [address] [place] [phone] 24 Sep, 2019 Encounter for screening labo ratory testing for COVID-19 virus Z11.59 [facility] [address] [id number] [address] [place] [phone] 24 Sep, 2019 [facility] [address] [facility] [id number] [address] [place] [phone] Sep, Type 2 diabetes mellitus wit hout complications E11.9 [facility] [address] [id number] [address] [place] [phone] 16 Sep, 2019 [facility] [address] [id number] [address] [place] [phone] 03 Sep, 2019 Essential (primary) hyperten felecia I10 [facility] [address] [id number] [address] [place] [phone] August, Type 2 diabetes mellitus wit hout complications E11.9 [facility] [address] [facility] [id number] [address] [place] [address] Jul, Essential (primary) hyperten felecia I10 and Type 2 diabetes mellitus without complications E11.9 [facility] [address] [facility] [id number] [address] [place] [phone] Jun, Type 2 diabetes mellitus wit hout complications E11.9 [facility] [address] [facility] [id number] [address] [place] [phone] Jun, [facility] [address] [facility] [id number] [address] [place] [phone] Jun, Type 2 diabetes mellitus wit hout complications E11.9 [facility] [address] [facility] [id number] [address] [place] [phone] 05 Jun, 2019 [facility] [address] [facility] [id number] [address] [place] [phone] May, [facility] [address] [id number] [address] [place] [phone] May, Type 2 diabetes mellitus wit hout complications E11.9 [facility] [address] [id number] [address] [place] [phone] Mar, Neuropathy G62.9 [facility] [address] [facility] [id number] [address] [place] [phone] Mar, [facility] [address] [id number] [address] [place] [phone] Dec, [facility] [address] [id number] [address] [place] [phone] Nov, Actinic keratoses L57.0 [facility] [address] [id number] [address] [place] [phone] Nov, [facility] [address] [facility] [id number] [address] [place] [phone] Nov, Type 2 diabetes mellitus wit hout complications E11.9 [facility] [address] [id number] [address] [place] [phone] Oct, Controlled type 2 diabetes m ellitus without complication, without long-term current use of insulin E11.9 [facility] [address] [facility] [id number] [address] [place] [phone] Oct, [facility] [address] [id number] [address] [place] [phone] Oct, [facility] [address] [facility] [id number] [address] [place] [address] Oct, Controlled type 2 diabetes m ellitus without complication, without long-term current use of insulin E11.9 [facility] [address] [facility] [id number] [address] [place] [phone] Oct, Essential (primary) hyperten felecia I10 ; Type 2 diabetes mellitus without complications E11.9 ; Actinic keratoses L57.0 and Seborrheic keratoses L82.1 [facility] [address] [id number] [address] [place] [phone] Oct, [facility] [address] [facility] [id number] [address] [place] [address] Sep, Hypertension, benign I10 and Controlled type 2 diabetes mellitus without complication, without long-term current use of insulin E11.9 [facility] [address] [id number] [address] [place] [phone] Sep, Other elevated white blood c ell (WBC) count D72.828 [facility] [address] [id number] [address] [place] [phone] August, Neuropathy G62.9 [facility] [address] [facility] [id number] [address] [place] [phone] August, Other elevated white blood c ell (WBC) count D72.828 [facility] [address] [id number] [address] [place] [address] August, Type 2 diabetes mellitus wit h foot ulcer E11.621 [facility] [address] [id number] [address] [place] [address] Jul, [facility] [address] [facility] [id number] [address] [place] [phone] Jul, Neuropathy G62.9 [facility] [address] [facility] [id number] [address] [place] [phone] Jun, [facility] [address] [facility] [id number] [address] [place] [phone] Jun, Neuropathy G62.9 [facility] [address] [id number] [address] [place] [phone] May, Neuropathy G62.9 [facility] [address] [facility] [id number] [address] [place] [phone] Mar, Type 2 diabetes mellitus wit hout complications E11.9 [facility] [address] [facility] [id number] [address] [place] [id number] 30 Feb, 2018 Neuropathy G62.9 [facility] [address] [facility] [id number] [address] [place] [phone] 13 Feb, 2018 Actinic keratoses L57.0 [place] [address] [facility] [id number] [address] [place] [phone] 09 Feb, 2018 Type 2 diabetes mellitus wit hout complications E11.9 ; Tobacco abuse Z72.0 ; Tobacco abuse counseling Z71.6 and Atherosclerotic heart disease of [place] coronary artery without angina pectoris I25.10 [place] [address] [place] [id number] [address] [place] [phone] 08 Feb, 2018 Type 2 diabetes mellitus wit hout complications E11.9 ; Tobacco abuse Z72.0 ; Tobacco abuse counseling Z71.6 ; Atherosclerotic heart disease of [place] coronary artery without angina pectoris I25.10 ; Seborrheic keratoses L82.1 and Gastroesophageal reflux disease with esophagitis K21.0 [facility] [address] [place] [phone] Jan, Abscess L02.91 [place] [address] [place] [id number] [place] [phone] Jan, Neuropathy G62.9 [place] [address] [place] [id number] [place] [phone] 20 Dec, 2017 Neuropathy G62.9 ; Cerebrova scular accident (CVA) due to embolism of other cerebral artery I63.49 and Seasonal allergic rhinitis due to other allergic trigger J30.89 [facility] [address] [place] [id number] [address] [place] [phone] 10 Dec, 2017 Altered mental status R41.82 [place] [address] [place] [id number] [place] [phone] 16 Nov, 2017 Type 2 diabetes mellitus wit h diabetic neuropathy, without long- term current use of insulin E11.40 [place] [address] [place] [id number] [address] [place] [phone] Oct, Neuropathy G62.9 ; Type 2 di abetes mellitus with other diabetic neurological complication E11.49 ; Type 2 diabetes mellitus with hyperglycemia E11.65 ; Actinic keratoses L57.0 and Observed sleep apnea G47.30 [facility] [address] [address] Sep, Tinnitus of both ears H93.13 and Actinic keratitis, unspecified laterality H16.139 [facility] [address] [address] August, Type 2 diabetes mellitus wit hout complications E11.9 and Controlled type 2 diabetes mellitus without complication, without long-term current use of insulin E11.9 [place] [address] [address] August, Seborrheic keratoses L82.1 a nd Tinnitus of left ear H93.12 [place] [address] [address] Jul, Controlled type 2 diabetes m ellitus without complication, without long-term current use of insulin E11.9 ; Seborrheic keratoses L82.1 ; Bilateral tinnitus H93.13 and Seasonal allergic rhinitis due to other allergic trigger J30.89 [facility] [address] [place] [id number] [address] [place] [id number] May, Encounter for dental examina tion Z01.20 [facility] [id number] [place] [id number] Jan, Encounter for dental examina tion Z01.20 [facility] [address] [place] [id number] [address] [place] [address] Jan, Type 2 diabetes mellitus wit hout complications E11.9 and Acute non- recurrent maxillary sinusitis J01.00 [facility] [address] [place] [id number] [address] [place] [phone] Dec, Right ear impacted cerumen H 61.21 and Acute suppurative otitis media of right ear without spontaneous rupture of tympanic membrane, recurrence not specified H66.001 [facility] [address] [id number] [address] [place] [phone] Nov, Type 2 diabetes mellitus wit hout complications E11.9 and Neuropathy G62.9 [facility] [address] [id number] [address] [place] [id number] Oct, Encounter for dental examina tion Z01.20 [facility] [address] [id number] [address] [place] [address] [id number] Jun, Dental examination Z01.20 [facility] [address] [id number] [address] [place] [phone] 16 Jun, 2016 Atherosclerotic heart diseas e of [place] coronary artery without angina pectoris I25.10 [facility] [address] [id number] [address] [place] [phone] Jun, Atherosclerotic heart diseas e of [place] coronary artery without angina pectoris I25.10 [facility] [address] [id number] [address] [place] [address] Jun, Type 2 diabetes mellitus wit hout complications E11.9 [facility] [address] [id number] [address] [place] [id number] May, Encounter for dental examina tion Z01.20 [facility] [address] [id number] [address] [place] [address] [id number] Apr, Dental caries K02.9 [facility] [address] [id number] [address] [place] [id number] Apr, Dental examination Z01.20 [facility] [address] [id number] [address] [place] [phone] Dec, Type 2 diabetes mellitus wit hout complications E11.9 ; retirement current use of insulin Z79.4 ; Essential (primary) hypertension I10 and Elevated white blood cell count, unspecified D72.829 [facility] [address] [id number] [address] [place] [id number] Jul, Diabetes mellitus without me ntion of complication, type II or unspecified type, not stated as uncontrolled 250.00 [facility] [address] [facility] [facility] [id number] [address] [place] [phone] Jul, [facility] [address] [facility] [id number] [address] [place] [phone] Jan, Encounter for immunization Z 23 [facility] [address] [id number] [address] [place] [address] [id number] Dec, Dental examination V72.2 [facility] [address] [facility] [id number] [address] [place] [phone] Nov, Cancer of lung, upper lobe 1 62.3 [facility] [address] [facility] [id number] [address] [place] [phone] Sep, Lung cancer 162.9 ; CAD (cor onary artery disease) 414.00 and Depression 311 [facility] [address] [facility] [facility] [id number] [address] [place] [phone] Jul, [facility] [address] [facility] [id number] [address] [place] [phone] Jul, [facility] [address] [facility] [facility] [id number] [address] [place] [phone] Jun, [facility] [address] [facility] [facility] [id number] [address] [place] [phone] Jun, [facility] [address] [facility] [id number] [address] [place] [phone] Mar, [facility] [address] [facility] [id number] [address] [place] [phone] Mar, [facility] [address] [facility] [id number] [address] [place] [phone] Jan, [facility] [address] [facility] [facility] [id number] [address] [place] [phone] Jan, [facility] [address] [facility] [facility] [id number] [address] [place] [phone] Jan, [facility] [address] [id number] [address] [place] [address], [place] [address] Jan, [facility] [address] [id number] [address] [place] [address], [place] [address] Jan, [facility] [address] [id number] [address] [place] [address], [place] [address] Jan, [facility] [address] [id number] [address] [place] [address], [place] [address] Dec, [facility] [address] [id number] [address] [place] [address], [place] [address] Dec, [facility] [address] [id number] [address] [place] [address], [place] [address] Oct, [facility] [address] [id number] [address] [place] [address], [place] [address] Oct, [facility] [address] [id number] [address] [place] [address], [place] [address] Sep, [facility] [address] [id number] [address] [place] [address], [place] [address] Sep, [facility] [address] [id number] [address] [place] [address], [place] [address] August, [facility] [address] [id number] [address] [place] [address], [place] [address] August, [facility] [address] [id number] [address] [place] [address], [place] [address] August, [facility] [address] [id number] [address] [place] [address], [place] [address] August, [facility] [address] [id number] [address] [place] [address], [place] [address] August, [facility] [address] [id number] [address] [place] [address], [place] [address] August, [facility] [address] [id number] [address] [place] [address], [place] [address] Jun, [facility] [address] [id number] [address] [place] [address], [place] [address] Jun, [facility] [address] [id number] [address] [place] [address], [place] [address] May, [facility] [address] [id number] [address] [place] [address], [place] [address] May, [facility] [address] [id number] [address] [place] [address], [place] [address] May, [facility] [address] [id number] [address] [place] [address], [place] [address] May, [facility] [address] [id number] [address] [place] [address], [place] [address] Apr, [facility] [address] [id number] [address] [place] [address], [place] [address] Apr, [facility] [address] [id number] [address] [place] [address], [place] [address] Mar, [facility] [address] [id number] [address] [place] [address], [place] [address] Mar, [facility] [address] [id number] [address] [place] [address], [place] [address] Mar, [facility] [address] [id number] [address] [place] [address], [place] [address] Mar, [facility] [address] [id number] [address] [place] [address], [place] [address] 05 Mar, 2013 [facility] [address] [id number] [address] [place] [address], [place] [address] Mar, [facility] [address] [id number] [address] [place] [address], [place] [address] Mar, [facility] [address] [id number] [address] [place] [address], [place] [address] Mar, [facility] [address] [id number] [address] [place] [address], [place] [address] Mar, [facility] [address] [id number] [address] [place] [address], [place] [address] Feb, [facility] [address] [id number] [address] [place] [address], [place] [address] Feb, [facility] [address] [id number] [address] [place] [address], [place] [address] Jan, [facility] [address] [id number] [address] [place] [address], [place] [address] Jan, [facility] [address] [id number] [address] [place] [address], [place] [address] Jan, [facility] [address] [id number] [address] [place] [address], [place] [address] Jan, [facility] [address] [id number] [address] [place] [address], [place] [address] Jan, [facility] [address] [id number] [address] [place] [address], [place] [address] Dec, [facility] [address] [id number] [address] [place] [address], [place] [address] Nov, [facility] [address] [id number] [address] [place] [address], [place] [address] Nov, [facility] [address] [id number] [address] [place] [phone] Nov, [facility] [address] [id number] [address] [place] [address], [place] [address] Oct, [facility] [address] [id number] [address] [place] [address], [place] [address] Oct, [facility] [address] [id number] [address] [place] [address], [place] [address] Sep, [facility] [address] [id number] [address] [place] [id number] Sep, [facility] [address] [id number] [address] [place] [address], [place] [address] August, [facility] [address] [id number] [address] [place] [phone] August, [facility] [address] [id number] [address] [place] [address], [place] [address] August, [facility] [address] [id number] [address] [place] [address], [place] [address] August, [facility] [address] [id number] [address] [place] [address], [place] [address] Jul, [facility] [address] [id number] [address] [place] [address], [place] [address] Jul, [facility] [address] [id number] [address] [place] [phone] Jun, [facility] [address] [id number] [address] [place] [address], [place] [address] May, [facility] [address] [id number] [address] [place] [address], [place] [address] May, [facility] [address] [id number] [address] [place] [address], [place] [address] May, [facility] [address] [id number] [address] [place] [address], [place] [address] 15 May, 2012 [facility] [address] [id number] [address] [place] [id number] May, [facility] [address] [id number] [address] [place] [address], [place] [address] May, [facility] [address] [id number] [address] [place] [phone] May, [facility] [address] [id number] [address] [place] [id number] August, [facility] [address] [id number] [address] [place] [id number] Jul, [facility] [address] [id number] [address] [place] [id number] Jul, [facility] [address] [id number] [address] [place] [phone] May, [facility] [address] [id number] [address] [place] [phone] May, [facility] [facility] [address] [id number] [address] [place] [phone] Mar, [facility] [address] [id number] [address] [place] [phone] Sep, [facility] [address] [id number] [address] [place] [phone] Jul, [facility] [address] [id number] [address] [place] [phone] Mar, [facility] [address] [id number] [address] [place] [phone] Feb, [facility] [address] [id number] [address] [place] [phone] Feb, IMMUNIZATIONS No Known Immunizations SOCIAL HISTORY Never Assessed REASON FOR VISIT PLAN OF CARE VITAL SIGNS Height 71 in 2013-03-26 Weight 214.2 lbs 2013-03-26 Heart Rate 88 bpm 2013-03-26 Blood pressure systolic 132 mmHg 2013-03-26 Blood pressure diastolic 80 mmHg 2013-03-26 MEDICATIONS Unknown Medications RESULTS No Results PROCEDURES Procedure Date Ordered Result Body Site MEASURE BLOOD OXYGEN LEVEL Mar 26, 2013 AUTOMATED RETICULOCYTE COUNT Mar 26, 2013 BL SMEAR W/DIFF WBC COUNT Mar 26, 2013 LAB PATHOLOGY CONSULTATION Mar 26, 2013 VENIPUNCT, ROUTINE* Mar 26, 2013 INSTRUCTIONS MEDICATIONS ADMINISTERED No Known Medications MEDICAL [...]
--- OUTSIDE RECORDS SUMMARY | 2019-11-11 02:31 | XMS REPORT ---
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 Sander Name Role Phone Migration, Doctor Unavailable Unavailable PROBLEMS Type Condition ICD9-CM Code [id number] Code Onset Dates Condition S tatus SNOMED Code Problem Type 2 diabetes mellitus without complications E11 .9 Active 540598151 Problem Essential (primary) hypertension I10 Active 48833155 Problem Type 2 diabetes mellitus with foot ulcer E11.621 Active 464034178 Problem Atherosclerotic heart diseas e of [place] coronary artery without angina pectoris I25.10 Active [id number] Problem Controlled type 2 diabetes m ellitus without complication, without long- term current use of insulin E11.9 Active 432728610 Problem Neuropathy G62.9 Active 195202818 Problem Seasonal allergic rhinitis due to other allergic trigger J30.89 Active 787034437 Problem Bilateral tinnitus H93.13 Active 4 413036856559 Problem Type 2 diabetes mellitus with hyperglycemia E11.65 Active 670458634319709 Problem Type 2 diabetes 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.49 Active 72552337 Problem Observed sleep apnea G47.30 Active 53936796 Problem Other elevated white blood cell (WBC) count D72.82 8 Active 534725226 Problem Tinnitus of both ears H93.13 Active 7959396277507 Problem Hypertension, benign I10 Active 89992731 Problem Tinnitus of left ear H93.12 Active 0467989838247 Problem Elevated white blood cell count, unspecified D72.8 29 Active 764462229 Problem Type 2 diabetes mellitus wit h diabetic neuropathy, without long-term current use of insulin E11.40 Active 34100 006 Problem Cerebrovascular accident (CVA) due to em bolism of other cerebral artery I63.49 Active 934069021 Problem Altered mental status R41.82 Active 080627450 Problem Gastroesophageal reflux disease with esophagitis K 21.0 Active 675250295 ALLERGIES No Information ENCOUNTERS Encounter Location Date Diagnosis [facility] [address] [facility] [id number] [address] [place] [address] Sep, Encounter for screening labo ratory testing for COVID-19 virus Z11.59 [facility] [address] [facility] [id number] [address] [place] [address] Sep, [facility] [address] [facility] [id number] [address] [place] [address] 16 Sep, 2019 Type 2 diabetes mellitus wit hout complications E11.9 [facility] [address] [facility] [id number] [address] [place] [address] Sep, [facility] [address] [facility] [id number] [address] [place] [address] 03 Sep, 2019 Essential (primary) hyperten felecia I10 [facility] [address] [facility] [id number] [address] [place] [address] August, Type 2 diabetes mellitus wit hout complications E11.9 [facility] [address] [facility] [id number] [address] [place] [address] Jul, Essential (primary) hyperten felecia I10 and Type 2 diabetes mellitus without complications E11.9 [facility] [address] [facility] [id number] [address] [place] [address] Jun, Type 2 diabetes mellitus wit hout complications E11.9 [facility] [address] [facility] [id number] [address] [place] [address] Jun, [facility] [address] [facility] [id number] [address] [place] [address] Jun, Type 2 diabetes mellitus wit hout complications E11.9 [facility] [address] [facility] [id number] [address] [place] [id number] 05 Jun, 2019 [facility] [address] [facility] [id number] [address] [place] [address] May, [facility] [address] [facility] [id number] [address] [place] [address] May, Type 2 diabetes mellitus wit hout complications E11.9 [facility] [address] [id number] [address] [place] [address] Mar, Neuropathy G62.9 [facility] [address] [id number] [address] [place] [address] Mar, [facility] [address] [id number] [address] [place] [address] Dec, [facility] [address] [id number] [address] [place] [address] Nov, Actinic keratoses L57.0 [facility] [address] [id number] [address] [place] [address] Nov, [facility] [address] [id number] [address] [place] [address] Nov, Type 2 diabetes mellitus wit hout complications E11.9 [facility] [address] [id number] [address] [place] [address] Oct, Controlled type 2 diabetes m ellitus without complication, without long-term current use of insulin E11.9 [facility] [address] [id number] [address] [place] [address] Oct, [facility] [address] [id number] [address] [place] [address] Oct, [facility] [address] [id number] [address] [place] [address] Oct, Controlled type 2 diabetes m ellitus without complication, without long-term current use of insulin E11.9 [facility] [address] [id number] [address] [place] [address] Oct, Essential (primary) hyperten felecia I10 ; Type 2 diabetes mellitus without complications E11.9 ; Actinic keratoses L57.0 and Seborrheic keratoses L82.1 [facility] [address] [id number] [address] [place] [address] Oct, [facility] [address] [id number] [address] [place] [address] Sep, Hypertension, benign I10 and Controlled type 2 diabetes mellitus without complication, without long-term current use of insulin E11.9 [facility] [address] [facility] [id number] [address] [place] [address] Sep, Other elevated white blood c ell (WBC) count D72.828 [facility] [address] [facility] [id number] [address] [place] [address] August, Neuropathy G62.9 [facility] [address] [facility] [id number] [address] [place] [address] August, Other elevated white blood c ell (WBC) count D72.828 [facility] [address] [facility] [id number] [address] [place] [address] August, Type 2 diabetes mellitus wit h foot ulcer E11.621 [facility] [address] [facility] [id number] [address] [place] [address] Jul, [facility] [address] [facility] [id number] [address] [place] [address] Jul, Neuropathy G62.9 [facility] [address] [facility] [id number] [address] [place] [address] Jun, [facility] [address] [facility] [id number] [address] [place] [address] Jun, Neuropathy G62.9 [facility] [address] [facility] [id number] [address] [place] [address] May, Neuropathy G62.9 [facility] [address] [facility] [id number] [address] [place] [address] Mar, Type 2 diabetes mellitus wit hout complications E11.9 [facility] [address] [facility] [id number] [address] [place] [address] Feb, Neuropathy G62.9 [facility] [address] [facility] [id number] [address] [place] [address] Feb, Actinic keratoses L57.0 [place] [id number] [address] 09 Feb, 2018 Type 2 diabetes mellitus wit hout complications E11.9 ; Tobacco abuse Z72.0 ; Tobacco abuse counseling Z71.6 and Atherosclerotic heart disease of [place] coronary artery without angina pectoris I25.10 [place] [address] [address] 08 Feb, 2018 Type 2 diabetes mellitus wit hout complications E11.9 ; Tobacco abuse Z72.0 ; Tobacco abuse counseling Z71.6 ; Atherosclerotic heart disease of [place] coronary artery without angina pectoris I25.10 ; Seborrheic keratoses L82.1 and Gastroesophageal reflux disease with esophagitis K21.0 [facility] [address] [address] Jan, Abscess L02.91 [place] [address] [address] Jan, Neuropathy G62.9 [place] [address] [address] 20 Dec, 2017 Neuropathy G62.9 ; Cerebrova scular accident (CVA) due to embolism of other cerebral artery I63.49 and Seasonal allergic rhinitis due to other allergic trigger J30.89 [facility] [place] [address] [address] 10 Dec, 2017 Altered mental status R41.82 [place] [address] [address] 16 Nov, 2017 Type 2 diabetes mellitus wit h diabetic neuropathy, without long- term current use of insulin E11.40 [place] [address] [address] 17 Oct, 2017 Neuropathy G62.9 ; Type 2 di abetes mellitus with other diabetic neurological complication E11.49 ; Type 2 diabetes mellitus with hyperglycemia E11.65 ; Actinic keratoses L57.0 and Observed sleep apnea G47.30 [facility] [address] [place] [id number] [address] [place] [address] Sep, Tinnitus of both ears H93.13 and Actinic keratitis, unspecified laterality H16.139 [facility] [address] [address] August, Type 2 diabetes mellitus wit hout complications E11.9 and Controlled type 2 diabetes mellitus without complication, without long-term current use of insulin E11.9 [facility] [address] [address] August, Seborrheic keratoses L82.1 a nd Tinnitus of left ear H93.12 [facility] [address] [address] Jul, Controlled type 2 diabetes m ellitus without complication, without long-term current use of insulin E11.9 ; Seborrheic keratoses L82.1 ; Bilateral tinnitus H93.13 and Seasonal allergic rhinitis due to other allergic trigger J30.89 [facility] [address] [place] [id number] [address] [place] [id number] May, Encounter for dental examina tion Z01.20 [facility] [id number] [place] [id number] Jan, Encounter for dental examina tion Z01.20 [facility] [address] [place] [id number] [address] [place] [address] Jan, Type 2 diabetes mellitus wit hout complications E11.9 and Acute non- recurrent maxillary sinusitis J01.00 [facility] [address] [place] [id number] [address] [place] [address] Dec, Right ear impacted cerumen H 61.21 and Acute suppurative otitis media of right ear without spontaneous rupture of tympanic membrane, recurrence not specified H66.001 [facility] [address] [place] [id number] [address] [place] [address] Nov, Type 2 diabetes mellitus wit hout complications E11.9 and Neuropathy G62.9 [facility] [address] [id number] [address] [place] [address] [id number] Oct, Encounter for dental examina tion Z01.20 [facility] [address] [id number] [address] [place] [address] [id number] Jun, Dental examination Z01.20 [facility] [address] [facility] [id number] [address] [place] [address] 16 Jun, 2016 Atherosclerotic heart diseas e of [place] coronary artery without angina pectoris I25.10 [facility] [address] [facility] [id number] [address] [place] [address] 15 Jun, 2016 Atherosclerotic heart diseas e of [place] coronary artery without angina pectoris I25.10 [facility] [address] [facility] [id number] [address] [place] [address] Jun, Type 2 diabetes mellitus wit hout complications E11.9 [facility] [address] [id number] [address] [place] [address] [phone] May, Encounter for dental examina tion Z01.20 [facility] [address] [id number] [address] [place] [address] [id number] Apr, Dental caries K02.9 [facility] [address] [id number] [address] [place] [address] [id number] Apr, Dental examination Z01.20 [facility] [address] 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 [id number] [address] [place] [address] Jul, Diabetes mellitus without me ntion of complication, type II or unspecified type, not stated as uncontrolled 250.00 [facility] [address] [facility] [id number] [address] [place] [address] Jul, [facility] [address] [id number] [address] [place] [address] 07 Jan, 2015 Encounter for immunization Z 23 [facility] [address] [id number] [address] [place] [address] [id number] 21 Dec, 2014 Dental examination V72.2 [facility] [address] [facility] [id number] [address] [place] [phone] 07 Nov, 2014 Cancer of lung, upper lobe 1 62.3 [facility] [address] [id number] [address] [place] [address] Sep, Lung cancer 162.9 ; CAD (cor onary artery disease) 414.00 and Depression 311 [facility] [address] [id number] [address] [place] [address] 14 Jul, 2014 [facility] [address] [facility] [id number] [address] [place] [address] Jul, [facility] [address] [id number] [address] [place] [address] Jun, [facility] [address] [id number] [address] [place] [address] Jun, [facility] [address] [facility] [id number] [address] [place] [phone] Mar, [facility] [address] [id number] [address] [place] [address] Mar, [facility] [address] [id number] [address] [place] [address] Jan, [facility] [address] [id number] [address] [place] [phone] Jan, [facility] [address] [facility] [id number] [address] [place] [phone] Jan, [facility] [address] [facility] [id number] [address] [place] [address] Jan, [facility] [address] [id number] [address] [place] [address], [place] [address] Jan, [facility] [address] [id number] [address] [place] [address], [place] [address] Jan, [facility] [address] [id number] [address] [place] [address], [place] [address] Dec, [facility] [address] [id number] [address] [place] [address], [place] [address] Dec, [facility] [address] [id number] [address] [place] [address], [place] [address] Oct, [facility] [address] [id number] [address] [place] [address], [place] [address] Oct, [facility] [address] [id number] [address] [place] [address], [place] [address] Sep, [facility] [address] [id number] [address] [place] [address], [place] [address] Sep, [facility] [address] [id number] [address] [place] [address], [place] [address] August, [facility] [address] [id number] [address] [place] [address], [place] [address] August, [facility] [address] [id number] [address] [place] [address], [place] [address] August, [facility] [address] [id number] [address] [place] [address], [place] [address] August, [facility] [address] [id number] [address] [place] [address], [place] [address] August, [facility] [address] [id number] [address] [place] [address], [place] [address] August, [facility] [address] [id number] [address] [place] [address], [place] [address] Jun, [facility] [address] [id number] [address] [place] [address], [place] [address] Jun, [facility] [address] [id number] [address] [place] [address], [place] [address] May, [facility] [address] [id number] [address] [place] [address], [place] [address] May, [facility] [address] [id number] [address] [place] [address], [place] [address] May, [facility] [address] [id number] [address] [place] [address], [place] [address] May, [facility] [address] [id number] [address] [place] [address], [place] [address] Apr, [facility] [address] [id number] [address] [place] [address], [place] [address] Apr, [facility] [address] [id number] [address] [place] [address], [place] [address] Mar, [facility] [address] [id number] [address] [place] [address], [place] [address] Mar, [facility] [address] [id number] [address] [place] [address], [place] [address] Mar, [facility] [address] [id number] [address] [place] [address], [place] [address] Mar, [facility] [address] [id number] [address] [place] [address], [place] [address] Mar, [facility] [address] [id number] [address] [place] [address], [place] [address] Mar, [facility] [address] [id number] [address] [place] [address], [place] [address] Mar, [facility] [address] [id number] [address] [place] [address], [place] [address] Mar, [facility] [address] [id number] [address] [place] [address], [place] [address] Mar, [facility] [address] [id number] [address] [place] [address], [place] [address] Feb, [facility] [address] [id number] [address] [place] [address], [place] [address] Feb, [facility] [address] [id number] [address] [place] [address], [place] [address] Jan, [facility] [address] [id number] [address] [place] [address], [place] [address] Jan, [facility] [address] [id number] [address] [place] [address], [place] [address] Jan, [facility] [address] [id number] [address] [place] [address], [place] [address] Jan, [facility] [address] [id number] [address] [place] [address], [place] [address] Jan, [facility] [address] [id number] [address] [place] [address], [place] [address] Dec, [facility] [address] [id number] [address] [place] [address], [place] [address] Nov, [facility] [address] [id number] [address] [place] [address], [place] [address] Nov, [facility] [address] [id number] [address] [place] [address], [place] [address] Nov, [facility] [address] [id number] [address] [place] [address], [place] [address] Oct, [facility] [address] [id number] [address] [place] [address], [place] [address] Oct, [facility] [address] [id number] [address] [place] [address], [place] [address] Sep, [facility] [address] [id number] [address] [place] [address], [place] [id number] Sep, [facility] [address] [id number] [address] [place] [address], [place] [id number] August, [facility] [address] [id number] [address] [place] [address], [place] [id number] August, [facility] [address] [id number] [address] [place] [address], [place] [id number] August, [facility] [address] [id number] [address] [place] [address], [place] [id number] August, [facility] [address] [id number] [address] [place] [address], [place] [id number] 16 Jul, 2012 [facility] [address] [id number] [address] [place] [address], [place] [id number] Jul, [facility] [address] [id number] [address] [place] [address], [place] [id number] Jun, [facility] [address] [id number] [address] [place] [address], [place] [id number] May, [facility] [address] [id number] [address] [place] [address], [place] [id number] May, [facility] [address] [id number] [address] [place] [address], [place] [id number] May, [facility] [address] [id number] [address] [place] [address], [place] [id number] May, [facility] [address] [id number] [address] [place] [address], [place] [id number] May, [facility] [address] [id number] [address] [place] [id number] May, [facility] [address] [id number] [address] [place] [address], [place] [id number] May, [facility] [address] [id number] [address] [place] [address], [place] [id number] August, [facility] [address] [id number] [address] [place] [address], [place] [id number] Jul, [facility] [address] [id number] [address] [place] [id number] Jul, [facility] [address] [id number] [address] [place] [id number] May, [facility] [address] [id number] [address] [place] [phone] May, [facility] [address] [id number] [address] [place] [id number] Mar, [facility] [address] [id number] [address] [place] [id number] Sep, [facility] [address] [facility] [id number] [address] [place] [id number] Jul, [facility] [address] [facility] [id number] [address] [place] [phone] Mar, [facility] [address] [facility] [id number] [address] [place] [phone] Feb, [facility] [address] [id number] [address] [place] [id number] Feb, IMMUNIZATIONS No Known Immunizations SOCIAL HISTORY Never Assessed REASON FOR VISIT PLAN OF CARE VITAL SIGNS Height 71 in 2013-02-07 Weight 211 lbs 2013-02-07 Temperature 96.9 degrees Fahrenheit 2013-02-07 Heart Rate 72 bpm 2013-02-07 Respiratory Rate 18 2013-02-07 Blood pressure systolic 124 mmHg 2013-02-07 Blood pressure diastolic 82 mmHg 2013-02-07 MEDICATIONS Unknown Medications RESULTS No Results PROCEDURES Procedure Date Ordered Result Body Site LIPID PANEL Feb 07, 2013 COMPREHEN METABOLIC PANEL Feb 07, 2013 VENIPUNCT, ROUTINE* Feb 07, 2013 INSTRUCTIONS MEDICATIONS ADMINISTERED No Known Medications [...]
--- OUTSIDE RECORDS SUMMARY | 2019-11-11 02:32 | XMS REPORT ---
Author Author Teddy Elkins Doctor Organization [facility] Address Unknown Phone Unavailable Care Team Providers Care Or Director Name Role Phone Migration, Doctor Unavailable Unavailable PROBLEMS Type Condition ICD9-CM Code HWF23-UF Code Onset Dates Condition S tatus SNOMED Code Problem Type 2 diabetes mellitus without complications E11 .9 Active 317686673 Problem Essential (primary) hypertension I10 Active 33398497 Problem Type 2 diabetes mellitus with foot ulcer E11.621 Active 041806940 Problem Atherosclerotic heart diseas e of [place] coronary artery without angina pectoris I25.10 Active 458412990145546 Problem Controlled type 2 diabetes m ellitus without complication, without long- term current use of insulin E11.9 Active 561795783 Problem Neuropathy G62.9 Active 295979071 Problem Seasonal allergic rhinitis due to other allergic trigger J30.89 Active 844861006 Problem Bilateral tinnitus H93.13 Active 4 483789046825 Problem Type 2 diabetes mellitus with hyperglycemia E11.65 Active 664214989134210 Problem Type 2 diabetes 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.49 Active 41811488 Problem Observed sleep apnea G47.30 Active 31171754 Problem Other elevated white blood cell (WBC) count D72.82 8 Active 118586115 Problem Tinnitus of both ears H93.13 Active 7992764969144 Problem Hypertension, benign I10 Active 29829950 Problem Tinnitus of left ear H93.12 Active 1947551647579 Problem Elevated white blood cell count, unspecified D72.8 29 Active 779674880 Problem Type 2 diabetes mellitus wit h diabetic neuropathy, without long-term current use of insulin E11.40 Active 00214 006 Problem Cerebrovascular accident (CVA) due to em bolism of other cerebral artery I63.49 Active 327458535 Problem Altered mental status R41.82 Active 794237657 Problem Gastroesophageal reflux disease with esophagitis K 21.0 Active 637933339 ALLERGIES No Information ENCOUNTERS Encounter Location Date Diagnosis [facility] [address] [facility]NOTE [facility]] [id number] [address] [place] [address] Sep, Encounter for screening labo ratory testing for COVID-19 virus Z11.59 [facility] [address] [facility]] [id number] [address] [place] [address] Sep, [facility] [address] [facility]NOTE [facility]] [id number] [address] [place] [address] 16 Sep, 2019 Type 2 diabetes mellitus wit hout complications E11.9 [facility] [address] [facility]NOTE 3] [id number] [address] [place] [address] Sep, [facility] [address] [facility]] [id number] [address] [place] [address] 03 Sep, 2019 Essential (primary) hyperten felecia I10 [facility] [address] [facility]NOTE 3] [id number] [address] [place] [address] August, Type 2 diabetes mellitus wit hout complications E11.9 [facility] [address] [facility] 3] [id number] [address] [place] [address] Jul, Essential (primary) hyperten felecia I10 and Type 2 diabetes mellitus without complications E11.9 [facility] [address] [facility] 3] [id number] [address] [place] [address] Jun, Type 2 diabetes mellitus wit hout complications E11.9 [facility] [address] [facility]] [id number] [address] [place] [address] Jun, [facility] [address] [facility] 3] [id number] [address] [place] [address] Jun, Type 2 diabetes mellitus wit hout complications E11.9 [facility] [address] [facility] 3] [id number] [address] [place] [address] 05 Jun, 2019 [facility] [address] [facility]NOTE 3] [id number] [address] [place] [address] May, [facility] [address] [facility]NOTE 3] [id number] [address] [place] [address] May, Type 2 diabetes mellitus wit hout complications E11.9 [facility] [address] [id number] [address] [place] [address] Mar, Neuropathy G62.9 [facility] [address] [id number] [address] [place] [address] Mar, [facility] [address] [id number] [address] [place] [address] Dec, [facility] [address] [id number] [address] [place] [address] Nov, Actinic keratoses L57.0 [facility] [address] [id number] [address] [place] [address] Nov, [facility] [address] [id number] [address] [place] [address] Nov, Type 2 diabetes mellitus wit hout complications E11.9 [facility] [address] [id number] [address] [place] [address] Oct, Controlled type 2 diabetes m ellitus without complication, without long-term current use of insulin E11.9 [facility] [address] [id number] [address] [place] [address] Oct, [facility] [address] [id number] [address] [place] [address] Oct, [facility] [address] [id number] [address] [place] [address] Oct, Controlled type 2 diabetes m ellitus without complication, without long-term current use of insulin E11.9 [facility] [address] [id number] [address] [place] [address] Oct, Essential (primary) hyperten felecia I10 ; Type 2 diabetes mellitus without complications E11.9 ; Actinic keratoses L57.0 and Seborrheic keratoses L82.1 [facility] [address] [id number] [address] [place] [address] Oct, [facility] [address] [id number] [address] [place] [address] Sep, Hypertension, benign I10 and Controlled type 2 diabetes mellitus without complication, without long-term current use of insulin E11.9 [facility] [address] [facility] 3] [id number] [address] [place] [address] Sep, Other elevated white blood c ell (WBC) count D72.828 [facility] [address] [facility] 3] [id number] [address] [place] [address] August, Neuropathy G62.9 [facility] [address] [facility] 3] [id number] [address] [place] [address] August, Other elevated white blood c ell (WBC) count D72.828 [facility] [address] [facility]NOTE 3] [id number] [address] [place] [address] August, Type 2 diabetes mellitus wit h foot ulcer E11.621 [facility] [address] [facility] 3] [id number] [address] [place] [address] Jul, [facility] [address] [facility]NOTE 3] [id number] [address] [place] [address] Jul, Neuropathy G62.9 [facility] [address] [facility]NOTE 3] [id number] [address] [place] [address] Jun, [facility] [address] [facility]NOTE 3] [id number] [address] [place] [address] Jun, Neuropathy G62.9 [facility] [address] [facility]NOTE 3] [id number] [address] [place] [address] May, Neuropathy G62.9 [facility] [address] [facility] 3] [id number] [address] [place] [address] Mar, Type 2 diabetes mellitus wit hout complications E11.9 [facility] [address] [facility] 3] [id number] [address] [place] [address] Feb, Neuropathy G62.9 [facility] [address] [facility] 3] [id number] [address] [place] [address] Feb, Actinic keratoses L57.0 [place] [id number] [address] 09 Feb, 2018 Type 2 diabetes mellitus wit hout complications E11.9 ; Tobacco abuse Z72.0 ; Tobacco abuse counseling Z71.6 and Atherosclerotic heart disease of [place] coronary artery without angina pectoris I25.10 [place] [address] [address] 08 Feb, 2018 Type 2 diabetes mellitus wit hout complications E11.9 ; Tobacco abuse Z72.0 ; Tobacco abuse counseling Z71.6 ; Atherosclerotic heart disease of [place] coronary artery without angina pectoris I25.10 ; Seborrheic keratoses L82.1 and Gastroesophageal reflux disease with esophagitis K21.0 [facility] [address] [address] Jan, Abscess L02.91 [place] [address] [address] Jan, Neuropathy G62.9 [place] [address] [address] 20 Dec, 2017 Neuropathy G62.9 ; Cerebrova scular accident (CVA) due to embolism of other cerebral artery I63.49 and Seasonal allergic rhinitis due to other allergic trigger J30.89 [facility] [place] [address] [address] 10 Dec, 2017 Altered mental status R41.82 [place] [address] [address] 16 Nov, 2017 Type 2 diabetes mellitus wit h diabetic neuropathy, without long- term current use of insulin E11.40 [place] [address] [address] 17 Oct, 2017 Neuropathy G62.9 ; Type 2 di abetes mellitus with other diabetic neurological complication E11.49 ; Type 2 diabetes mellitus with hyperglycemia E11.65 ; Actinic keratoses L57.0 and Observed sleep apnea G47.30 [facility] [address] [place] [id number] [address] [place] [address] Sep, Tinnitus of both ears H93.13 and Actinic keratitis, unspecified laterality H16.139 [facility] [address] [address] August, Type 2 diabetes mellitus wit hout complications E11.9 and Controlled type 2 diabetes mellitus without complication, without long-term current use of insulin E11.9 [facility] [address] [address] August, Seborrheic keratoses L82.1 a nd Tinnitus of left ear H93.12 [facility] [address] [address] Jul, Controlled type 2 diabetes m ellitus without complication, without long-term current use of insulin E11.9 ; Seborrheic keratoses L82.1 ; Bilateral tinnitus H93.13 and Seasonal allergic rhinitis due to other allergic trigger J30.89 [facility] [address] [place] [id number] [address] [place] [id number] May, Encounter for dental examina tion Z01.20 [facility] [id number] [place] [id number] Jan, Encounter for dental examina tion Z01.20 [facility] [address] [place] [id number] [address] [place] [address] Jan, Type 2 diabetes mellitus wit hout complications E11.9 and Acute non- recurrent maxillary sinusitis J01.00 [facility] [address] [place] [id number] [address] [place] [address] Dec, Right ear impacted cerumen H 61.21 and Acute suppurative otitis media of right ear without spontaneous rupture of tympanic membrane, recurrence not specified H66.001 [facility] [address] [place] [id number] [address] [place] [address] Nov, Type 2 diabetes mellitus wit hout complications E11.9 and Neuropathy G62.9 [facility] [address] [id number] [address] [place] [id number] Oct, Encounter for dental examina tion Z01.20 [facility] [address] [id number] [address] [place] [address] [id number] Jun, Dental examination Z01.20 [facility] [address] [facility] 3] [id number] [address] [place] [address] 16 Jun, 2016 Atherosclerotic heart diseas e of [place] coronary artery without angina pectoris I25.10 [facility] [address] [facility]NOTE 3] [id number] [address] [place] [address] 15 Jun, 2016 Atherosclerotic heart diseas e of [place] coronary artery without angina pectoris I25.10 [facility] [address] [facility]NOTE 3] [id number] [address] [place] [address] Jun, Type 2 diabetes mellitus wit hout complications E11.9 [facility] [address] [id number] [address] [place] [address] [id number] May, Encounter for dental examina tion Z01.20 [facility] [address] [id number] [address] [place] [address] [id number] Apr, Dental caries K02.9 [facility] [address] [id number] [address] [place] [address] [id number] Apr, Dental examination Z01.20 [facility] [address] [facility] 3] [id number] [address] [place] [address] Dec, Type 2 diabetes mellitus wit hout complications E11.9 ; 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 ; Essential (primary) hypertension I10 and Elevated white blood cell count, unspecified D72.829 [facility] [address] [facility] 3] [id number] [address] [place] [address] Jul, Diabetes mellitus without me ntion of complication, type II or unspecified type, not stated as uncontrolled 250.00 [facility] [address] [facility] 3] [id number] [address] [place] [address] Jul, [facility] [address] [id number] [address] [place] [address] 07 Jan, 2015 Encounter for immunization Z 23 [facility] [address] [id number] [address] [place] [id number] 21 Dec, 2014 Dental examination V72.2 [facility] [address] [facility]] [id number] [address] [place] [address] 07 Nov, 2014 Cancer of lung, upper lobe 1 62.3 [facility] [address] [id number] [address] [place] [address] Sep, Lung cancer 162.9 ; CAD (cor onary artery disease) 414.00 and Depression 311 [facility] [address] [id number] [address] [place] [address] 14 Jul, 2014 [facility] [address] [facility] 3] [id number] [address] [place] [address] Jul, [facility] [address] [id number] [address] [place] [address] Jun, [facility] [address] [id number] [address] [place] [address] Jun, [facility] [address] [facility] 3] [id number] [address] [place] [address] Mar, [facility] [address] [id number] [address] [place] [address] Mar, [facility] [address] [id number] [address] [place] [address] Jan, [facility] [address] [id number] [address] [place] [address] Jan, [facility] [address] [facility]] [id number] [address] [place] [address] Jan, [facility] [address] [facility]] [id number] [address] [place] [address] Jan, [facility] [address] [id number] [address] [place] [address], [place] [address] Jan, [facility] [address] [id number] [address] [place] [address], [place] [address] Jan, [facility] [address] [id number] [address] [place] [address], [place] [address] Dec, [facility] [address] [id number] [address] [place] [address], [place] [address] Dec, [facility] [address] [id number] [address] [place] [address], [place] [address] Oct, [facility] [address] [id number] [address] [place] [address], [place] [address] Oct, [facility] [address] [id number] [address] [place] [address], [place] [address] Sep, [facility] [address] [id number] [address] [place] [address], [place] [address] Sep, [facility] [address] [id number] [address] [place] [address], [place] [address] August, [facility] [address] [id number] [address] [place] [address], [place] [address] August, [facility] [address] [id number] [address] [place] [address], [place] [address] August, [facility] [address] [id number] [address] [place] [address], [place] [address] August, [facility] [address] [id number] [address] [place] [address], [place] [address] August, [facility] [address] [id number] [address] [place] [address], [place] [address] August, [facility] [address] [id number] [address] [place] [address], [place] [address] Jun, [facility] [address] [id number] [address] [place] [address], [place] [address] Jun, [facility] [address] [id number] [address] [place] [address], [place] [address] May, [facility] [address] [id number] [address] [place] [address], [place] [address] May, [facility] [address] [id number] [address] [place] [address], [place] [address] May, [facility] [address] [id number] [address] [place] [address], [place] [address] May, [facility] [address] [id number] [address] [place] [address], [place] [address] Apr, [facility] [address] [id number] [address] [place] [address], [place] [address] Apr, [facility] [address] [id number] [address] [place] [address], [place] [address] Mar, [facility] [address] [id number] [address] [place] [address], [place] [address] Mar, [facility] [address] [id number] [address] [place] [address], [place] [address] Mar, [facility] [address] [id number] [address] [place] [address], [place] [address] Mar, [facility] [address] [id number] [address] [place] [address], [place] [address] Mar, [facility] [address] [id number] [address] [place] [address], [place] [address] Mar, [facility] [address] [id number] [address] [place] [address], [place] [address] Mar, [facility] [address] [id number] [address] [place] [address], [place] [address] Mar, [facility] [address] [id number] [address] [place] [address], [place] [address] Mar, [facility] [address] [id number] [address] [place] [address], [place] [address] Feb, [facility] [address] [id number] [address] [place] [address], [place] [address] Feb, [facility] [address] [id number] [address] [place] [address], [place] [address] Jan, [facility] [address] [id number] [address] [place] [address], [place] [address] Jan, [facility] [address] [id number] [address] [place] [address], [place] [address] Jan, [facility] [address] [id number] [address] [place] [address], [place] [address] Jan, [facility] [address] [id number] [address] [place] [address], [place] [address] Jan, [facility] [address] [id number] [address] [place] [address], [place] [address] Dec, [facility] [address] [id number] [address] [place] [address], [place] [address] Nov, [facility] [address] [id number] [address] [place] [address], [place] [address] Nov, [facility] [address] [id number] [address] [place] [address], [place] [address] Nov, [facility] [address] [id number] [address] [place] [address], [place] [address] Oct, [facility] [address] [id number] [address] [place] [address], [place] [address] Oct, [facility] [address] [id number] [address] [place] [address], [place] [address] Sep, [facility] [address] [id number] [address] [place] [address], [place] [address] Sep, [facility] [address] [id number] [address] [place] [address], [place] [address] August, [facility] [address] [id number] [address] [place] [address], [place] [address] August, [facility] [address] [id number] [address] [place] [address], [place] [address] August, [facility] [address] [id number] [address] [place] [address], [place] [address] August, [facility] [address] [id number] [address] [place] [address], [place] [address] 16 Jul, 2012 [facility] [address] [id number] [address] [place] [address], [place] [address] Jul, [facility] [address] [id number] [address] [place] [address], [place] [address] Jun, [facility] [address] [id number] [address] [place] [address], [place] [address] May, [facility] [address] [id number] [address] [place] [address], [place] [address] May, [facility] [address] [id number] [address] [place] [address], [place] [address] May, [facility] [address] [id number] [address] [place] [address], [place] [address] May, [facility] [address] [id number] [address] [place] [address], [place] [address] May, [facility] [address] [id number] [address] [place] [id number] May, [facility] [address] [id number] [address] [place] [address], [place] [address] May, [facility] [address] [id number] [address] [place] [address], [place] [address] August, [facility] [address] [id number] [address] [place] [address], [place] [address] Jul, [facility] [address] [id number] [address] [place] [id number] Jul, [facility] [address] [id number] [address] [place] [id number] May, [facility] [address] [id number] [address] [place] [id number] May, [facility] [address] [id number] [address] [place] [id number] Mar, [facility] [address] [id number] [address] [place] [id number] Sep, [facility] [address] [facility]NOTE 3] [id number] [address] [place] [phone] Jul, [facility] [address] [facility]NOTE 3] [id number] [address] [place] [id number] Mar, [facility] [address] [facility]NOTE [facility]] [id number] [address] [place] [phone] Feb, [facility] [address] [id number] [address] [place] [id number] Feb, IMMUNIZATIONS No Known Immunizations SOCIAL HISTORY [...]
--- OUTSIDE RECORDS SUMMARY | 2019-11-11 02:32 | XMS REPORT ---
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 Name Role Phone ONEILJAYE Unavailable PROBLEMS Type Condition ICD9-CM Code [id number] Code Onset Dates Condition S tatus SNOMED Code Problem Type 2 diabetes mellitus without complications E11 .9 Active 272760279 Problem Essential (primary) hypertension I10 Active 27442397 Problem Type 2 diabetes mellitus with foot ulcer E11.621 Active 467632810 Problem Atherosclerotic heart diseas e of [place] coronary artery without angina pectoris I25.10 Active 566910826664900 Problem Controlled type 2 diabetes m ellitus without complication, without long- term current use of insulin E11.9 Active 634681515 Problem Neuropathy G62.9 Active 693895095 Problem Seasonal allergic rhinitis due to other allergic trigger J30.89 Active 121660789 Problem Bilateral tinnitus H93.13 Active 4 059365963427 Problem Type 2 diabetes mellitus with hyperglycemia E11.65 Active 936705722624680 Problem Type 2 diabetes 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.49 Active 13961630 Problem Observed sleep apnea G47.30 Active 45668828 Problem Other elevated white blood cell (WBC) count D72.82 8 Active 309603647 Problem Tinnitus of both ears H93.13 Active 1172029337585 Problem Hypertension, benign I10 Active 76983519 Problem Tinnitus of left ear H93.12 Active 9812592260194 Problem Elevated white blood cell count, unspecified D72.8 29 Active 198268830 Problem Type 2 diabetes mellitus wit h diabetic neuropathy, without long-term current use of insulin E11.40 Active 70292 006 Problem Cerebrovascular accident (CVA) due to em bolism of other cerebral artery I63.49 Active 630920264 Problem Altered mental status R41.82 Active 235404405 Problem Gastroesophageal reflux disease with esophagitis K 21.0 Active 818643282 ALLERGIES No Information ENCOUNTERS Encounter Location Date Diagnosis [facility] [address] [facility] [id number] [address] [place] [id number] 24 Sep, 2019 Encounter for screening labo ratory testing for COVID-19 virus Z11.59 [facility] [address] [facility] [id number] [address] [place] [id number] 24 Sep, 2019 [facility] [address] [facility] [id number] [address] [place] [id number] 16 Sep, 2019 Type 2 diabetes mellitus wit hout complications E11.9 [facility] [address] [facility] [id number] [address] [place] [id number] 16 Sep, 2019 [facility] [address] [place] [id number] [address] [place] [id number] 03 Sep, 2019 Essential (primary) hyperten felecia I10 [facility] [address] [facility] [id number] [address] [place] [address] August, Type 2 diabetes mellitus wit hout complications E11.9 [facility] [address] [place] [id number] [address] [place] [phone] 15 Jul, 2019 Essential (primary) hyperten felecia I10 and Type 2 diabetes mellitus without complications E11.9 [facility] [address] [facility] [id number] [address] [place] [address] Jun, Type 2 diabetes mellitus wit hout complications E11.9 [facility] [address] [facility] [id number] [address] [place] [address] Jun, [facility] [address] [facility] [id number] [address] [place] [address] Jun, Type 2 diabetes mellitus wit hout complications E11.9 [facility] [address] [facility] [id number] [address] [place] [phone] 05 Jun, 2019 [facility] [address] [facility] [id number] [address] [place] [address] 28 May, 2019 [facility] [address] [place] [id number] [address] [place] [address] May, Type 2 diabetes mellitus wit hout complications E11.9 [facility] [address] [id number] [address] [place] [address] Mar, Neuropathy G62.9 [facility] [address] [id number] [address] [place] [address] Mar, [facility] [address] [id number] [address] [place] [address] Dec, [facility] [address] [id number] [address] [place] [address] Nov, Actinic keratoses L57.0 [facility] [address] [id number] [address] [place] [address] Nov, [facility] [address] [id number] [address] [place] [address] Nov, Type 2 diabetes mellitus wit hout complications E11.9 [facility] [address] [id number] [address] [place] [address] Oct, Controlled type 2 diabetes m ellitus without complication, without long-term current use of insulin E11.9 [facility] [address] [id number] [address] [place] [address] Oct, [facility] [address] [id number] [address] [place] [address] Oct, [facility] [address] [id number] [address] [place] [address] Oct, Controlled type 2 diabetes m ellitus without complication, without long-term current use of insulin E11.9 [facility] [address] [id number] [address] [place] [address] Oct, Essential (primary) hyperten felecia I10 ; Type 2 diabetes mellitus without complications E11.9 ; Actinic keratoses L57.0 and Seborrheic keratoses L82.1 [facility] [address] [id number] [address] [place] [address] Oct, [facility] [address] [facility] [id number] [address] [place] [address] Sep, Hypertension, benign I10 and Controlled type 2 diabetes mellitus without complication, without long-term current use of insulin E11.9 [facility] [address] [id number] [address] [place] [phone] Sep, Other elevated white blood c ell (WBC) count D72.828 [facility] [address] [id number] [address] [place] [address] August, Neuropathy G62.9 [facility] [address] [id number] [address] [place] [address] August, Other elevated white blood c ell (WBC) count D72.828 [facility] [address] [facility] [id number] [address] [place] [address] August, Type 2 diabetes mellitus wit h foot ulcer E11.621 [facility] [address] [id number] [address] [place] [address] Jul, [facility] [address] [facility] [id number] [address] [place] [address] Jul, Neuropathy G62.9 [facility] [address] [facility] [id number] [address] [place] [address] Jun, [facility] [address] [facility] [id number] [address] [place] [address] Jun, Neuropathy G62.9 [facility] [address] [facility] [id number] [address] [place] [address] May, Neuropathy G62.9 [facility] [address] [facility] [id number] [address] [place] [address] Mar, Type 2 diabetes mellitus wit hout complications E11.9 [facility] [address] [facility] [id number] [address] [place] [address] Feb, Neuropathy G62.9 [facility] [address] [address] 13 Feb, 2018 Actinic keratoses L57.0 [place] [address] [id number] 09 Feb, 2018 Type 2 diabetes mellitus wit hout complications E11.9 ; Tobacco abuse Z72.0 ; Tobacco abuse counseling Z71.6 and Atherosclerotic heart disease of [place] coronary artery without angina pectoris I25.10 [place] [address] [id number] 08 Feb, 2018 Type 2 diabetes mellitus wit hout complications E11.9 ; Tobacco abuse Z72.0 ; Tobacco abuse counseling Z71.6 ; Atherosclerotic heart disease of [place] coronary artery without angina pectoris I25.10 ; Seborrheic keratoses L82.1 and Gastroesophageal reflux disease with esophagitis K21.0 [facility] [place] [address] [address] Jan, Abscess L02.91 [place] [address] [address] Jan, Neuropathy G62.[address] [id number] 20 Dec, 2017 Neuropathy G62.9 ; Cerebrova scular accident (CVA) due to embolism of other cerebral artery I63.49 and Seasonal allergic rhinitis due to other allergic trigger J30.89 [facility] [place] [address] [address] Dec, Altered mental status R41.[address] [address] 16 Nov, 2017 Type 2 diabetes mellitus wit h diabetic neuropathy, without long- term current use of insulin E11.40 [place] [address] [address] 17 Oct, 2017 Neuropathy G62.9 ; Type 2 di abetes mellitus with other diabetic neurological complication E11.49 ; Type 2 diabetes mellitus with hyperglycemia E11.65 ; Actinic keratoses L57.0 and Observed sleep apnea G47.30 [facility] [address] [facility] [id number] [address] [place] [address] Sep, Tinnitus of both ears H93.13 and Actinic keratitis, unspecified laterality H16.139 [facility] [address] [address] August, Type 2 diabetes mellitus wit hout complications E11.9 and Controlled type 2 diabetes mellitus without complication, without long-term current use of insulin E11.9 [facility] [address] [facility] [id number] [address] August, Seborrheic keratoses L82.1 a nd Tinnitus of left ear H93.12 [place] [address] [address] Jul, Controlled type 2 diabetes m ellitus without complication, without long-term current use of insulin E11.9 ; Seborrheic keratoses L82.1 ; Bilateral tinnitus H93.13 and Seasonal allergic rhinitis due to other allergic trigger J30.89 [facility] [address] [place] [id number] [place] [id number] May, Encounter for dental examina tion Z01.20 [facility] [id number] [place] [id number] Jan, Encounter for dental examina tion Z01.20 [facility] [address] [place] [id number] [address] [place] [address] Jan, Type 2 diabetes mellitus wit hout complications E11.9 and Acute non- recurrent maxillary sinusitis J01.00 [facility] [address] [place] [id number] [place] [address] Dec, Right ear impacted cerumen H 61.21 and Acute suppurative otitis media of right ear without spontaneous rupture of tympanic membrane, recurrence not specified H66.001 [facility] [address] [place] [id number] [place] [phone] Nov, Type 2 diabetes mellitus wit hout complications E11.9 and Neuropathy G62.9 [facility] [address] [id number] [address] [place] [id number] Oct, Encounter for dental examina tion Z01.20 [facility] [address] [id number] [address] [place] [address] [id number] Jun, Dental examination Z01.20 [facility] [address] [facility] [id number] [address] [place] [phone] 16 Jun, 2016 Atherosclerotic heart diseas e of [place] coronary artery without angina pectoris I25.10 [facility] [address] [facility] [id number] [address] [place] [id number] 15 Jun, 2016 Atherosclerotic heart diseas e of [place] coronary artery without angina pectoris I25.10 [facility] [address] [facility] [id number] [address] [place] [address] Jun, Type 2 diabetes mellitus wit hout complications E11.9 [facility] [address] [id number] [address] [place] [address] [id number] May, Encounter for dental examina tion Z01.20 [facility] [address] [id number] [address] [place] [address] [id number] Apr, Dental caries K02.9 [facility] [address] [id number] [address] [place] [address] [id number] Apr, Dental examination Z01.20 [facility] [address] [facility] [id number] [address] [place] [address] Dec, Type 2 diabetes mellitus wit hout complications E11.9 ; 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.4 ; Essential (primary) hypertension I10 and Elevated white blood cell count, unspecified D72.829 [facility] [address] [facility] [id number] [address] [place] [address] Jul, Diabetes mellitus without me ntion of complication, type II or unspecified type, not stated as uncontrolled 250.00 [place] [address] [id number] [address] [place] [id number] 11 Jul, 2015 [facility] [address] [id number] [address] [place] [id number] 07 Jan, 2015 Encounter for immunization Z 23 [facility] [address] [id number] [address] [place] [id number] 21 Dec, 2014 Dental examination V72.2 [facility] [address] [id number] [address] [place] [id number] 07 Nov, 2014 Cancer of lung, upper lobe 1 62.3 [facility] [address] [id number] [address] [place] [phone] Sep, Lung cancer 162.9 ; CAD (cor onary artery disease) 414.00 and Depression 311 [facility] [address] [id number] [address] [place] [id number] 14 Jul, 2014 [facility] [address] [id number] [address] [place] [phone] Jul, [facility] [address] [id number] [address] [place] [phone] Jun, [facility] [address] [id number] [address] [place] [address] Jun, [facility] [address] [id number] [address] [place] [phone] Mar, [facility] [address] [id number] [address] [place] [phone] Mar, [facility] [address] [id number] [address] [place] [phone] Jan, [facility] [address] [id number] [address] [place] [phone] Jan, [facility] [address] [id number] [address] [place] [phone] Jan, [facility] [address] [id number] [address] [place] [address] [place] [address] Jan, [facility] [address] [id number] [address] [place] [address], [place] [address] Jan, [facility] [address] [id number] [address] [place] [address], [place] [address] Jan, [facility] [address] [id number] [address] [place] [address], [place] [address] Dec, [facility] [address] [id number] [address] [place] [address], [place] [address] Dec, [facility] [address] [id number] [address] [place] [address], [place] [address] Oct, [facility] [address] [id number] [address] [place] [address], [place] [address] Oct, [facility] [address] [id number] [address] [place] [address], [place] [address] Sep, [facility] [address] [id number] [address] [place] [address], [place] [address] Sep, [facility] [address] [id number] [address] [place] [address], [place] [address] August, [facility] [address] [id number] [address] [place] [address], [place] [address] August, [facility] [address] [id number] [address] [place] [address], [place] [address] August, [facility] [address] [id number] [address] [place] [address], [place] [address] August, [facility] [address] [id number] [address] [place] [address], [place] [address] August, [facility] [address] [id number] [address] [place] [address], [place] [address] August, [facility] [address] [id number] [address] [place] [address], [place] [address] Jun, [facility] [address] [id number] [address] [place] [address], [place] [address] Jun, [facility] [address] [id number] [address] [place] [address], [place] [address] May, [facility] [address] [id number] [address] [place] [address], [place] [address] May, [facility] [address] [id number] [address] [place] [address], [place] [address] May, [facility] [address] [id number] [address] [place] [address], [place] [address] May, [facility] [address] [id number] [address] [place] [address], [place] [address] Apr, [facility] [address] [id number] [address] [place] [address], [place] [address] Apr, [facility] [address] [id number] [address] [place] [address], [place] [address] Mar, [facility] [address] [id number] [address] [place] [address], [place] [address] Mar, [facility] [address] [id number] [address] [place] [address], [place] [address] Mar, [facility] [address] [id number] [address] [place] [address], [place] [address] Mar, [facility] [address] [id number] [address] [place] [address], [place] [address] Mar, [facility] [address] [id number] [address] [place] [address], [place] [address] Mar, [facility] [address] [id number] [address] [place] [address], [place] [address] Mar, [facility] [address] [id number] [address] [place] [address], [place] [address] Mar, [facility] [address] [id number] [address] [place] [address] Mar, [facility] [address] [id number] [address] [place] [address], [place] [address] Feb, [facility] [address] [id number] [address] [place] [address], [place] [address] Feb, [facility] [address] [id number] [address] [place] [address], [place] [address] Jan, [facility] [address] [id number] [address] [place] [address], [place] [address] Jan, [facility] [address] [id number] [address] [place] [address], [place] [address] Jan, [facility] [address] [id number] [address] [place] [address], [place] [address] Jan, [facility] [address] [id number] [address] [place] [address], [place] [address] Jan, [facility] [address] [id number] [address] [place] [address], [place] [address] Dec, [facility] [address] [id number] [address] [place] [address], [place] [address] Nov, [facility] [address] [id number] [address] [place] [address], [place] [address] Nov, [facility] [address] [id number] [address] [place] [address], [place] [address] Nov, [facility] [address] [id number] [address] [place] [address] Oct, [facility] [address] [id number] [address] [place] [address], [place] [address] Oct, [facility] [address] [id number] [address] [place] [address], [place] [address] Sep, [facility] [address] [id number] [address] [place] [address], [place] [address] Sep, [facility] [address] [id number] [address] [place] [address], [place] [address] August, [facility] [address] [id number] [address] [place] [address], [place] [address] August, [facility] [address] [id number] [address] [place] [address], [place] [address] August, [facility] [address] [id number] [address] [place] [address], [place] [address] August, [facility] [address] [id number] [address] [place] [address], [place] [address] Jul, [facility] [address] [id number] [address] [place] [address], [place] [address] Jul, [facility] [address] [id number] [address] [place] [address], [place] [address] Jun, [facility] [address] [id number] [address] [place] [address], [place] [address] May, [facility] [address] [id number] [address] [place] [address], [place] [address] May, [facility] [address] [id number] [address] [place] [address], [place] [address] May, [facility] [address] [id number] [address] [place] [address], [place] [address] May, [facility] [address] [id number] [address] [place] [address], [place] [address] May, [facility] [address] [id number] [address] [place] [address], [place] [address] May, [facility] [address] [id number] [address] [place] [address], [place] [address] May, [facility] [address] [id number] [address] [place] [address], [place] [address] August, [facility] [address] [id number] [address] [place] [id number] Jul, [facility] [address] [id number] [address] [place] [id number] Jul, [facility] [address] [id number] [address] [place] [phone] May, [facility] [address] [id number] [address] [place] [phone] May, [facility] [address] [id number] [address] [place] [id number] Mar, [facility] [address] [id number] [address] [place] [phone] Sep, [facility] [address] [id number] [address] [place] [place] [id number] Jul, [facility] [address] [id number] [address] [place] [id number] Mar, [facility] [address] [id number] [address] [place] [phone] Feb, [facility] [address] [id number] [address] [place] [id number] Feb, IMMUNIZATIONS No Known Immunizations SOCIAL HISTORY Never Assessed REASON FOR VISIT PLAN OF CARE VITAL SIGNS Height 71 in 2013-04-14 Weight 215.1 lbs 2013-04-14 Temperature 98.1 degrees Fahrenheit 2013-04-14 Heart Rate 84 bpm 2013-04-14 Respiratory Rate 18 2013-04-14 Blood pressure systolic 132 mmHg 2013-04-14 Blood pressure diastolic 90 mmHg 2013-04-14 MEDICATIONS Unknown Medications RESULTS No Results PROCEDURES [...]
--- OUTSIDE RECORDS SUMMARY | 2019-11-11 02:32 | XMS REPORT ---
Author Author Teddy RIGGS Organization [facility] Address [address] [place] [address] Care Team Providers Care Pararescue Manager Name Role Phone ONEILJAYE Unavailable PROBLEMS Type Condition ICD9-CM Code XTD47-FC Code Onset Dates Condition S tatus SNOMED Code Problem Type 2 diabetes mellitus without complications E11 .9 Active 624050769 Problem Essential (primary) hypertension I10 Active 68547732 Problem Type 2 diabetes mellitus with foot ulcer E11.621 Active 658744329 Problem Atherosclerotic heart diseas e of [place] coronary artery without angina pectoris I25.10 Active [id number] Problem Controlled type 2 diabetes m ellitus without complication, without long- term current use of insulin E11.9 Active 623085970 Problem Neuropathy G62.9 Active 877589261 Problem Seasonal allergic rhinitis due to other allergic trigger J30.89 Active 001662857 Problem Bilateral tinnitus H93.13 Active 4 645969344226 Problem Type 2 diabetes mellitus with hyperglycemia E11.65 Active 829372195299356 Problem Type 2 diabetes 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.49 Active 92517869 Problem Observed sleep apnea G47.30 Active 76723580 Problem Other elevated white blood cell (WBC) count D72.82 8 Active 953605273 Problem Tinnitus of both ears H93.13 Active 4597270243550 Problem Hypertension, benign I10 Active 60666831 Problem Tinnitus of left ear H93.12 Active 3202997725767 Problem Elevated white blood cell count, unspecified D72.8 29 Active 768693454 Problem Type 2 diabetes mellitus wit h diabetic neuropathy, without long-term current use of insulin E11.40 Active 58872 006 Problem Cerebrovascular accident (CVA) due to em bolism of other cerebral artery I63.49 Active 201017347 Problem Altered mental status R41.82 Active 383591885 Problem Gastroesophageal reflux disease with esophagitis K 21.0 Active 949318507 ALLERGIES No Information ENCOUNTERS Encounter Location Date Diagnosis [facility] [address] [facility] [id number] [address] [place] [id number] 24 Sep, 2019 Encounter for screening labo ratory testing for COVID-19 virus Z11.59 [facility] [address] [facility] [id number] [address] [place] [phone] 24 Sep, 2019 [facility] [address] [facility] [id number] [address] [place] [phone] 16 Sep, 2019 Type 2 diabetes mellitus wit hout complications E11.9 [facility] [address] [facility] [id number] [address] [place] [id number] 16 Sep, 2019 [facility] [address] [place] [id number] [address] [place] [id number] 03 Sep, 2019 Essential (primary) hyperten felecia I10 [facility] [address] [facility] [id number] [address] [place] [phone] August, Type 2 diabetes mellitus wit hout complications E11.9 [facility] [address] [place] [id number] [address] [place] [id number] 15 Jul, 2019 Essential (primary) hyperten felecia I10 and Type 2 diabetes mellitus without complications E11.9 [facility] [address] [facility] [id number] [address] [place] [phone] Jun, Type 2 diabetes mellitus wit hout complications E11.9 [facility] [address] [facility] [id number] [address] [place] [phone] Jun, [facility] [address] [facility] [id number] [address] [place] [phone] Jun, Type 2 diabetes mellitus wit hout complications E11.9 [facility] [address] [facility] [id number] [address] [place] [phone] 05 Jun, 2019 [facility] [address] [facility] [id number] [address] [place] [phone] 28 May, 2019 [facility] [address] [place] [id number] [address] [place] [phone] May, Type 2 diabetes mellitus wit hout complications E11.9 [facility] [address] [id number] [address] [place] [id number] Mar, Neuropathy G62.9 [facility] [address] [id number] [address] [place] [phone] Mar, [facility] [address] [id number] [address] [place] [phone] Dec, [facility] [address] [id number] [address] [place] [phone] Nov, Actinic keratoses L57.0 [facility] [address] [id number] [address] [place] [phone] Nov, [facility] [address] [id number] [address] [place] [phone] Nov, Type 2 diabetes mellitus wit hout complications E11.9 [facility] [address] [id number] [address] [place] [id number] Oct, Controlled type 2 diabetes m ellitus without complication, without long-term current use of insulin E11.9 [facility] [address] [id number] [address] [place] [id number] Oct, [facility] [address] [id number] [address] [place] [phone] Oct, [facility] [address] [id number] [address] [place] [phone] Oct, Controlled type 2 diabetes m ellitus without complication, without long-term current use of insulin E11.9 [facility] [address] [id number] [address] [place] [phone] Oct, Essential (primary) hyperten felecia I10 ; Type 2 diabetes mellitus without complications E11.9 ; Actinic keratoses L57.0 and Seborrheic keratoses L82.1 [facility] [address] [id number] [address] [place] [phone] Oct, [facility] [address] [facility] [id number] [address] [place] [phone] Sep, Hypertension, benign I10 and Controlled type 2 diabetes mellitus without complication, without long-term current use of insulin E11.9 [facility] [address] [id number] [address] [place] [phone] Sep, Other elevated white blood c ell (WBC) count D72.828 [facility] [address] [id number] [address] [place] [address] August, Neuropathy G62.9 [facility] [address] [id number] [address] [place] [phone] August, Other elevated white blood c ell (WBC) count D72.828 [facility] [address] [facility] [id number] [address] [place] [phone] August, Type 2 diabetes mellitus wit h foot ulcer E11.621 [facility] [address] [id number] [address] [place] [phone] Jul, [facility] [address] [facility] [id number] [address] [place] [id number] Jul, Neuropathy G62.9 [facility] [address] [facility] [id number] [address] [place] [phone] Jun, [facility] [address] [facility] [id number] [address] [place] [phone] Jun, Neuropathy G62.9 [facility] [address] [facility] [id number] [address] [place] [phone] May, Neuropathy G62.9 [facility] [address] [facility] [id number] [address] [place] [phone] Mar, Type 2 diabetes mellitus wit hout complications E11.9 [facility] [address] [facility] [id number] [address] [place] [phone] Feb, Neuropathy G62.9 [facility] [address] [id number] 13 Feb, 2018 Actinic keratoses L57.0 [place] [address] [id number] 09 Feb, 2018 Type 2 diabetes mellitus wit hout complications E11.9 ; Tobacco abuse Z72.0 ; Tobacco abuse counseling Z71.6 and Atherosclerotic heart disease of [place] coronary artery without angina pectoris I25.10 [place] [address] [id number] 08 Feb, 2018 Type 2 diabetes mellitus wit hout complications E11.9 ; Tobacco abuse Z72.0 ; Tobacco abuse counseling Z71.6 ; Atherosclerotic heart disease of [place] coronary artery without angina pectoris I25.10 ; Seborrheic keratoses L82.1 and Gastroesophageal reflux disease with esophagitis K21.0 [facility] [place] [address] [address] Jan, Abscess L02.91 [place] [address] [address] Jan, Neuropathy G62.[address] [id number] 20 Dec, 2017 Neuropathy G62.9 ; Cerebrova scular accident (CVA) due to embolism of other cerebral artery I63.49 and Seasonal allergic rhinitis due to other allergic trigger J30.89 [facility] [place] [address] [address] Dec, Altered mental status R41.[address] [id number] 16 Nov, 2017 Type 2 diabetes mellitus wit h diabetic neuropathy, without long- term current use of insulin E11.40 [place] [address] [address] 17 Oct, 2017 Neuropathy G62.9 ; Type 2 di abetes mellitus with other diabetic neurological complication E11.49 ; Type 2 diabetes mellitus with hyperglycemia E11.65 ; Actinic keratoses L57.0 and Observed sleep apnea G47.30 [facility] [address] [facility] [id number] [address] [place] [id number] Sep, Tinnitus of both ears H93.13 and Actinic keratitis, unspecified laterality H16.139 [facility] [address] [address] August, Type 2 diabetes mellitus wit hout complications E11.9 and Controlled type 2 diabetes mellitus without complication, without long-term current use of insulin E11.9 [facility] [address] [facility] [id number] [address] August, Seborrheic keratoses L82.1 a nd Tinnitus of left ear H93.12 [place] [address] [address] Jul, Controlled type 2 diabetes m ellitus without complication, without long-term current use of insulin E11.9 ; Seborrheic keratoses L82.1 ; Bilateral tinnitus H93.13 and Seasonal allergic rhinitis due to other allergic trigger J30.89 [facility] [address] [place] [id number] [place] [address] [id number] May, Encounter for dental examina tion Z01.20 [facility] [id number] [place] [id number] Jan, Encounter for dental examina tion Z01.20 [facility] [address] [place] [id number] [address] [place] [phone] Jan, Type 2 diabetes mellitus wit hout complications E11.9 and Acute non- recurrent maxillary sinusitis J01.00 [facility] [address] [place] [id number] [place] [address] Dec, Right ear impacted cerumen H 61.21 and Acute suppurative otitis media of right ear without spontaneous rupture of tympanic membrane, recurrence not specified H66.001 [facility] [address] [place] [id number] [place] [phone] Nov, Type 2 diabetes mellitus wit hout complications E11.9 and Neuropathy G62.9 [facility] [address] [id number] [address] [place] [address] [id number] Oct, Encounter for dental examina tion Z01.20 [facility] [address] [id number] [address] [place] [address] [id number] Jun, Dental examination Z01.20 [facility] [address] [facility] [id number] [address] [place] [phone] 16 Jun, 2016 Atherosclerotic heart diseas e of [place] coronary artery without angina pectoris I25.10 [facility] [address] [facility] [id number] [address] [place] [id number] 15 Jun, 2016 Atherosclerotic heart diseas e of [place] coronary artery without angina pectoris I25.10 [facility] [address] [facility] [id number] [address] [place] [phone] Jun, Type 2 diabetes mellitus wit hout complications E11.9 [facility] [address] [id number] [address] [place] [address] [phone] May, Encounter for dental examina tion Z01.20 [facility] [address] [id number] [address] [place] [address] [id number] Apr, Dental caries K02.9 [facility] [address] [id number] [address] [place] [address] [id number] Apr, Dental examination Z01.20 [facility] [address] [facility] [id number] [address] [place] [id number] Dec, Type 2 diabetes mellitus wit hout complications E11.9 ; rn long term care current use of insulin Z79.4 ; Essential (primary) hypertension I10 and Elevated white blood cell count, unspecified D72.829 [facility] [address] [facility] [id number] [address] [place] [id number] Jul, Diabetes mellitus without me ntion of complication, type II or unspecified type, not stated as uncontrolled 250.00 [place] [address] [id number] [address] [place] [id number] 11 Jul, 2015 [facility] [address] [id number] [address] [place] [id number] 07 Jan, 2015 Encounter for immunization Z 23 [facility] [address] [id number] [address] [place] [address] [id number] 21 Dec, 2014 Dental examination V72.2 [facility] [address] [id number] [address] [place] [id number] 07 Nov, 2014 Cancer of lung, upper lobe 1 62.3 [facility] [address] [id number] [address] [place] [id number] Sep, Lung cancer 162.9 ; CAD (cor onary artery disease) 414.00 and Depression 311 [facility] [address] [id number] [address] [place] [phone] 14 Jul, 2014 [facility] [address] [id number] [address] [place] [phone] Jul, [facility] [address] [id number] [address] [place] [phone] Jun, [facility] [address] [id number] [address] [place] [phone] Jun, [facility] [address] [id number] [address] [place] [phone] Mar, [facility] [address] [id number] [address] [place] [phone] Mar, [facility] [address] [id number] [address] [place] [phone] Jan, [facility] [address] [id number] [address] [place] [phone] Jan, [facility] [address] [id number] [address] [place] [phone] Jan, [facility] [address] [id number] [address] [place] [address] [place] [address] Jan, [facility] [address] [id number] [address] [place] [address], [place] [address] Jan, [facility] [address] [id number] [address] [place] [address], [place] [address] Jan, [facility] [address] [id number] [address] [place] [address], [place] [address] Dec, [facility] [address] [id number] [address] [place] [address], [place] [address] Dec, [facility] [address] [id number] [address] [place] [address], [place] [address] Oct, [facility] [address] [id number] [address] [place] [address], [place] [address] Oct, [facility] [address] [id number] [address] [place] [address], [place] [address] Sep, [facility] [address] [id number] [address] [place] [address], [place] [address] Sep, [facility] [address] [id number] [address] [place] [address], [place] [address] August, [facility] [address] [id number] [address] [place] [address], [place] [address] August, [facility] [address] [id number] [address] [place] [address], [place] [address] August, [facility] [address] [id number] [address] [place] [address], [place] [address] August, [facility] [address] [id number] [address] [place] [address], [place] [address] August, [facility] [address] [id number] [address] [place] [address], [place] [address] August, [facility] [address] [id number] [address] [place] [address], [place] [id number] Jun, [facility] [address] [id number] [address] [place] [address], [place] [address] Jun, [facility] [address] [id number] [address] [place] [address], [place] [address] May, [facility] [address] [id number] [address] [place] [address], [place] [address] May, [facility] [address] [id number] [address] [place] [address], [place] [id number] May, [facility] [address] [id number] [address] [place] [address], [place] [address] May, [facility] [address] [id number] [address] [place] [address], [place] [address] Apr, [facility] [address] [id number] [address] [place] [address], [place] [address] Apr, [facility] [address] [id number] [address] [place] [address], [place] [address] Mar, [facility] [address] [id number] [address] [place] [address], [place] [address] Mar, [facility] [address] [id number] [address] [place] [address], [place] [address] Mar, [facility] [address] [id number] [address] [place] [address], [place] [address] Mar, [facility] [address] [id number] [address] [place] [address], [place] [address] Mar, [facility] [address] [id number] [address] [place] [address], [place] [address] Mar, [facility] [address] [id number] [address] [place] [address], [place] [address] Mar, [facility] [address] [id number] [address] [place] [address], [place] [address] Mar, [facility] [address] [id number] [address] [place] [phone] Mar, [facility] [address] [id number] [address] [place] [address], [place] [address] Feb, [facility] [address] [id number] [address] [place] [address], [place] [address] Feb, [facility] [address] [id number] [address] [place] [address], [place] [address] Jan, [facility] [address] [id number] [address] [place] [address], [place] [address] Jan, [facility] [address] [id number] [address] [place] [address], [place] [address] Jan, [facility] [address] [id number] [address] [place] [address], [place] [address] Jan, [facility] [address] [id number] [address] [place] [address], [place] [address] Jan, [facility] [address] [id number] [address] [place] [address], [place] [address] Dec, [facility] [address] [id number] [address] [place] [address], [place] [address] Nov, [facility] [address] [id number] [address] [place] [address], [place] [address] Nov, [facility] [address] [id number] [address] [place] [address], [place] [address] Nov, [facility] [address] [id number] [address] [place] [phone] Oct, [facility] [address] [id number] [address] [place] [address], [place] [address] Oct, [facility] [address] [id number] [address] [place] [address], [place] [address] Sep, [facility] [address] [id number] [address] [place] [address], [place] [address] Sep, [facility] [address] [id number] [address] [place] [address], [place] [address] August, [facility] [address] [id number] [address] [place] [address], [place] [address] August, [facility] [address] [id number] [address] [place] [address], [place] [id number] August, [facility] [address] [id number] [address] [place] [address], [place] [id number] August, [facility] [address] [id number] [address] [place] [address], [place] [id number] Jul, [facility] [address] [id number] [address] [place] [address], [place] [id number] Jul, [facility] [address] [id number] [address] [place] [address], [place] [id number] Jun, [facility] [address] [id number] [address] [place] [address], [place] [id number] May, [facility] [address] [id number] [address] [place] [address], [place] [id number] May, [facility] [address] [id number] [address] [place] [address], [place] [id number] May, [facility] [address] [id number] [address] [place] [address], [place] [id number] May, [facility] [address] [id number] [address] [place] [address], [place] [id number] May, [facility] [address] [id number] [address] [place] [address], [place] [id number] May, [facility] [address] [id number] [address] [place] [address], [place] [id number] May, [facility] [address] [id number] [address] [place] [address], [place] [id number] August, [facility] [address] [id number] [address] [place] [id number] Jul, [facility] [address] [id number] [address] [place] [id number] Jul, [facility] [address] [id number] [address] [place] [id number] May, [facility] [address] [id number] [address] [place] [id number] May, [facility] [address] [id number] [address] [place] [address] [id number] Mar, [facility] [address] [id number] [address] [place] [id number] Sep, [facility] [address] [id number] [address] [place] [id number] Jul, [facility] [address] [id number] [address] [place] [id number] Mar, [facility] [address] [id number] [address] [place] [id number] Feb, [facility] [address] [id number] [address] [place] [id number] Feb, IMMUNIZATIONS No Known Immunizations SOCIAL HISTORY [...]
--- OUTSIDE RECORDS SUMMARY | 2019-11-11 02:32 | XMS REPORT ---
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 Name Role Phone ONEILJAYE Unavailable PROBLEMS Type Condition ICD9-CM Code [id number] Code Onset Dates Condition S tatus SNOMED Code Problem Type 2 diabetes mellitus without complications E11 .9 Active 774568921 Problem Essential (primary) hypertension I10 Active 74421894 Problem Type 2 diabetes mellitus with foot ulcer E11.621 Active 279318554 Problem Atherosclerotic heart diseas e of [place] coronary artery without angina pectoris I25.10 Active 226790149360447 Problem Controlled type 2 diabetes m ellitus without complication, without long- term current use of insulin E11.9 Active 770095704 Problem Neuropathy G62.9 Active 126778430 Problem Seasonal allergic rhinitis due to other allergic trigger J30.89 Active 589673867 Problem Bilateral tinnitus H93.13 Active 4 833447209006 Problem Type 2 diabetes mellitus with hyperglycemia E11.65 Active 796983178968040 Problem Type 2 diabetes 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.49 Active 50990929 Problem Observed sleep apnea G47.30 Active 85053804 Problem Other elevated white blood cell (WBC) count D72.82 8 Active 676656363 Problem Tinnitus of both ears H93.13 Active 9425321883573 Problem Hypertension, benign I10 Active 26695596 Problem Tinnitus of left ear H93.12 Active 4985281308608 Problem Elevated white blood cell count, unspecified D72.8 29 Active 687456056 Problem Type 2 diabetes mellitus wit h diabetic neuropathy, without long-term current use of insulin E11.40 Active 58122 006 Problem Cerebrovascular accident (CVA) due to em bolism of other cerebral artery I63.49 Active 445395797 Problem Altered mental status R41.82 Active 778073223 Problem Gastroesophageal reflux disease with esophagitis K 21.0 Active 706888975 ALLERGIES No Information ENCOUNTERS Encounter Location Date Diagnosis [facility] [address] [facility] [id number] [address] [place] [address] 24 Sep, 2019 Encounter for screening labo ratory testing for COVID-19 virus Z11.59 [facility] [address] [facility] [id number] [address] [place] [address] 24 Sep, 2019 [facility] [address] [facility] [id number] [address] [place] [address] 16 Sep, 2019 Type 2 diabetes mellitus wit hout complications E11.9 [facility] [address] [facility] [id number] [address] [place] [address] 16 Sep, 2019 [facility] [address] [place] [id number] [address] [place] [address] 03 Sep, 2019 Essential (primary) hyperten felecia I10 [facility] [address] [facility] [id number] [address] [place] [address] August, Type 2 diabetes mellitus wit hout complications E11.9 [facility] [address] [place] [id number] [address] [place] [id number] 15 Jul, 2019 Essential (primary) hyperten felecia I10 and Type 2 diabetes mellitus without complications E11.9 [facility] [address] [facility] [id number] [address] [place] [address] Jun, Type 2 diabetes mellitus wit hout complications E11.9 [facility] [address] [facility] [id number] [address] [place] [address] Jun, [facility] [address] [facility] [id number] [address] [place] [address] Jun, Type 2 diabetes mellitus wit hout complications E11.9 [facility] [address] [facility] [id number] [address] [place] [address] 05 Jun, 2019 [facility] [address] [facility] [id number] [address] [place] [address] 28 May, 2019 [facility] [address] [place] [id number] [address] [place] [address] May, Type 2 diabetes mellitus wit hout complications E11.9 [facility] [address] [id number] [address] [place] [address] Mar, Neuropathy G62.9 [facility] [address] [id number] [address] [place] [address] Mar, [facility] [address] [id number] [address] [place] [address] Dec, [facility] [address] [id number] [address] [place] [address] Nov, Actinic keratoses L57.0 [facility] [address] [id number] [address] [place] [address] Nov, [facility] [address] [id number] [address] [place] [address] Nov, Type 2 diabetes mellitus wit hout complications E11.9 [facility] [address] [id number] [address] [place] [address] Oct, Controlled type 2 diabetes m ellitus without complication, without long-term current use of insulin E11.9 [facility] [address] [id number] [address] [place] [address] Oct, [facility] [address] [id number] [address] [place] [address] Oct, [facility] [address] [id number] [address] [place] [address] Oct, Controlled type 2 diabetes m ellitus without complication, without long-term current use of insulin E11.9 [facility] [address] [id number] [address] [place] [address] Oct, Essential (primary) hyperten felecia I10 ; Type 2 diabetes mellitus without complications E11.9 ; Actinic keratoses L57.0 and Seborrheic keratoses L82.1 [facility] [address] [id number] [address] [place] [address] Oct, [facility] [address] [facility] [id number] [address] [place] [address] Sep, Hypertension, benign I10 and Controlled type 2 diabetes mellitus without complication, without long-term current use of insulin E11.9 [facility] [address] [id number] [address] [place] [address] Sep, Other elevated white blood c ell (WBC) count D72.828 [facility] [address] [id number] [address] [place] [address] August, Neuropathy G62.9 [facility] [address] [id number] [address] [place] [address] August, Other elevated white blood c ell (WBC) count D72.828 [facility] [address] [facility] [id number] [address] [place] [address] August, Type 2 diabetes mellitus wit h foot ulcer E11.621 [facility] [address] [id number] [address] [place] [address] Jul, [facility] [address] [facility] [id number] [address] [place] [address] Jul, Neuropathy G62.9 [facility] [address] [facility] [id number] [address] [place] [address] Jun, [facility] [address] [facility] [id number] [address] [place] [address] Jun, Neuropathy G62.9 [facility] [address] [facility] [id number] [address] [place] [address] May, Neuropathy G62.9 [facility] [address] [facility] [id number] [address] [place] [address] Mar, Type 2 diabetes mellitus wit hout complications E11.9 [facility] [address] [facility] [id number] [address] [place] [address] Feb, Neuropathy G62.9 [facility] [address] [id number] 13 Feb, 2018 Actinic keratoses L57.0 [place] [address] [address] 09 Feb, 2018 Type 2 diabetes mellitus wit hout complications E11.9 ; Tobacco abuse Z72.0 ; Tobacco abuse counseling Z71.6 and Atherosclerotic heart disease of [place] coronary artery without angina pectoris I25.10 [place] [address] [address] 08 Feb, 2018 Type 2 diabetes mellitus wit hout complications E11.9 ; Tobacco abuse Z72.0 ; Tobacco abuse counseling Z71.6 ; Atherosclerotic heart disease of [place] coronary artery without angina pectoris I25.10 ; Seborrheic keratoses L82.1 and Gastroesophageal reflux disease with esophagitis K21.0 [facility] [place] [address] [address] Jan, Abscess L02.91 [place] [address] [address] Jan, Neuropathy G62.[address] [address] 20 Dec, 2017 Neuropathy G62.9 ; Cerebrova scular accident (CVA) due to embolism of other cerebral artery I63.49 and Seasonal allergic rhinitis due to other allergic trigger J30.89 [facility] [place] [address] [address] Dec, Altered mental status R41.[address] [address] 16 Nov, 2017 Type 2 diabetes mellitus wit h diabetic neuropathy, without long- term current use of insulin E11.40 [place] [address] [address] 17 Oct, 2017 Neuropathy G62.9 ; Type 2 di abetes mellitus with other diabetic neurological complication E11.49 ; Type 2 diabetes mellitus with hyperglycemia E11.65 ; Actinic keratoses L57.0 and Observed sleep apnea G47.30 [facility] [address] [facility] [id number] [address] [place] [address] Sep, Tinnitus of both ears H93.13 and Actinic keratitis, unspecified laterality H16.139 [facility] [address] [address] August, Type 2 diabetes mellitus wit hout complications E11.9 and Controlled type 2 diabetes mellitus without complication, without long-term current use of insulin E11.9 [facility] [address] [facility] [id number] [address] August, Seborrheic keratoses L82.1 a nd Tinnitus of left ear H93.12 [place] [address] [address] Jul, Controlled type 2 diabetes m ellitus without complication, without long-term current use of insulin E11.9 ; Seborrheic keratoses L82.1 ; Bilateral tinnitus H93.13 and Seasonal allergic rhinitis due to other allergic trigger J30.89 [facility] [address] [place] [id number] [place] [id number] May, Encounter for dental examina tion Z01.20 [facility] [id number] [place] [id number] Jan, Encounter for dental examina tion Z01.20 [facility] [address] [place] [id number] [address] [place] [address] Jan, Type 2 diabetes mellitus wit hout complications E11.9 and Acute non- recurrent maxillary sinusitis J01.00 [facility] [address] [place] [id number] [place] [address] Dec, Right ear impacted cerumen H 61.21 and Acute suppurative otitis media of right ear without spontaneous rupture of tympanic membrane, recurrence not specified H66.001 [facility] [address] [place] [id number] [place] [address] Nov, Type 2 diabetes mellitus wit hout complications E11.9 and Neuropathy G62.9 [facility] [address] [address] [id number] [address] [place] [address] [id number] Oct, Encounter for dental examina tion Z01.20 [facility] [address] [id number] [address] [place] [address] [id number] Jun, Dental examination Z01.20 [facility] [address] [facility] [id number] [address] [place] [address] 16 Jun, 2016 Atherosclerotic heart diseas e of [place] coronary artery without angina pectoris I25.10 [facility] [address] [facility] [id number] [address] [place] [address] 15 Jun, 2016 Atherosclerotic heart diseas e of [place] coronary artery without angina pectoris I25.10 [facility] [address] [facility] [id number] [address] [place] [address] Jun, Type 2 diabetes mellitus wit hout complications E11.9 [facility] [address] [id number] [address] [place] [id number] May, Encounter for dental examina tion Z01.20 [facility] [address] [id number] [address] [place] [address] [id number] Apr, Dental caries K02.9 [facility] [address] [id number] [address] [place] [address] [id number] Apr, Dental examination Z01.20 [facility] [address] [facility] [id number] [address] [place] [address] Dec, Type 2 diabetes mellitus wit hout complications E11.9 ; 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 ; Essential (primary) hypertension I10 and Elevated white blood cell count, unspecified D72.829 [facility] [address] [facility] [id number] [address] [place] [address] Jul, Diabetes mellitus without me ntion of complication, type II or unspecified type, not stated as uncontrolled 250.00 [place] [address] [id number] [address] [place] [address] 11 Jul, 2015 [facility] [address] [id number] [address] [place] [phone] 07 Jan, 2015 Encounter for immunization Z 23 [facility] [address] [id number] [address] [place] [address] [id number] 21 Dec, 2014 Dental examination V72.2 [facility] [address] [id number] [address] [place] [id number] 07 Nov, 2014 Cancer of lung, upper lobe 1 62.3 [facility] [address] [id number] [address] [place] [address] Sep, Lung cancer 162.9 ; CAD (cor onary artery disease) 414.00 and Depression 311 [facility] [address] [id number] [address] [place] [id number] 14 Jul, 2014 [facility] [address] [id number] [address] [place] [address] Jul, [facility] [address] [id number] [address] [place] [address] Jun, [facility] [address] [id number] [address] [place] [address] Jun, [facility] [address] [id number] [address] [place] [address] Mar, [facility] [address] [id number] [address] [place] [address] Mar, [facility] [address] [id number] [address] [place] [address] Jan, [facility] [address] [id number] [address] [place] [address] Jan, [facility] [address] [id number] [address] [place] [address] Jan, [facility] [address] [id number] [address] [place] [address] [place] [address] Jan, [facility] [address] [id number] [address] [place] [address], [place] [address] Jan, [facility] [address] [id number] [address] [place] [address], [place] [address] Jan, [facility] [address] [id number] [address] [place] [address], [place] [address] Dec, [facility] [address] [id number] [address] [place] [address], [place] [address] Dec, [facility] [address] [id number] [address] [place] [address], [place] [address] Oct, [facility] [address] [id number] [address] [place] [address], [place] [address] Oct, [facility] [address] [id number] [address] [place] [address], [place] [address] Sep, [facility] [address] [id number] [address] [place] [address], [place] [address] Sep, [facility] [address] [id number] [address] [place] [address], [place] [address] August, [facility] [address] [id number] [address] [place] [address], [place] [address] August, [facility] [address] [id number] [address] [place] [address], [place] [address] August, [facility] [address] [id number] [address] [place] [address], [place] [address] August, [facility] [address] [id number] [address] [place] [address], [place] [address] August, [facility] [address] [id number] [address] [place] [address], [place] [address] August, [facility] [address] [id number] [address] [place] [address], [place] [address] Jun, [facility] [address] [id number] [address] [place] [address], [place] [address] Jun, [facility] [address] [id number] [address] [place] [address], [place] [address] May, [facility] [address] [id number] [address] [place] [address], [place] [address] May, [facility] [address] [id number] [address] [place] [address], [place] [address] May, [facility] [address] [id number] [address] [place] [address], [place] [address] May, [facility] [address] [id number] [address] [place] [address], [place] [address] Apr, [facility] [address] [id number] [address] [place] [address], [place] [address] Apr, [facility] [address] [id number] [address] [place] [address], [place] [address] Mar, [facility] [address] [id number] [address] [place] [address], [place] [address] Mar, [facility] [address] [id number] [address] [place] [address], [place] [address] Mar, [facility] [address] [id number] [address] [place] [address], [place] [address] Mar, [facility] [address] [id number] [address] [place] [address], [place] [address] Mar, [facility] [address] [id number] [address] [place] [address], [place] [address] Mar, [facility] [address] [id number] [address] [place] [address], [place] [address] Mar, [facility] [address] [id number] [address] [place] [address], [place] [address] Mar, [facility] [address] [id number] [address] [place] [address] Mar, [facility] [address] [id number] [address] [place] [address], [place] [address] Feb, [facility] [address] [id number] [address] [place] [address], [place] [address] Feb, [facility] [address] [id number] [address] [place] [address], [place] [address] Jan, [facility] [address] [id number] [address] [place] [address], [place] [address] Jan, [facility] [address] [id number] [address] [place] [address], [place] [address] Jan, [facility] [address] [id number] [address] [place] [address], [place] [address] Jan, [facility] [address] [id number] [address] [place] [address], [place] [address] Jan, [facility] [address] [id number] [address] [place] [address], [place] [address] Dec, [facility] [address] [id number] [address] [place] [address], [place] [address] Nov, [facility] [address] [id number] [address] [place] [address], [place] [address] Nov, [facility] [address] [id number] [address] [place] [address], [place] [address] Nov, [facility] [address] [id number] [address] [place] [address] Oct, [facility] [address] [id number] [address] [place] [address], [place] [address] Oct, [facility] [address] [id number] [address] [place] [address], [place] [address] Sep, [facility] [address] [id number] [address] [place] [address], [place] [address] Sep, [facility] [address] [id number] [address] [place] [address], [place] [address] August, [facility] [address] [id number] [address] [place] [address], [place] [address] August, [facility] [address] [id number] [address] [place] [address], [place] [address] August, [facility] [address] [id number] [address] [place] [address], [place] [address] August, [facility] [address] [id number] [address] [place] [address], [place] [address] Jul, [facility] [address] [id number] [address] [place] [address], [place] [id number] Jul, [facility] [address] [id number] [address] [place] [address], [place] [address] Jun, [facility] [address] [id number] [address] [place] [address], [place] [phone] May, [facility] [address] [id number] [address] [place] [address], [place] [address] May, [facility] [address] [id number] [address] [place] [address], [place] [address] May, [facility] [address] [id number] [address] [place] [address], [place] [address] May, [facility] [address] [id number] [address] [place] [address], [place] [address] May, [facility] [address] [id number] [address] [place] [address], [place] [address] May, [facility] [address] [id number] [address] [place] [address], [place] [address] May, [facility] [address] [id number] [address] [place] [address], [place] [address] August, [facility] [address] [id number] [address] [place] [phone] Jul, [facility] [address] [id number] [address] [place] [id number] Jul, [facility] [address] [id number] [address] [place] [id number] May, [facility] [address] [id number] [address] [place] [phone] May, [facility] [address] [id number] [address] [place] [id number] Mar, [facility] [address] [id number] [address] [place] [phone] Sep, [facility] [address] [id number] [address] [place] [phone] Jul, [facility] [address] [facility] [id number] [address] [place] [phone] Mar, [facility] [address] [id number] [address] [place] [id number] Feb, [facility] [address] [facility] [id number] [address] [place] [id number] Feb, IMMUNIZATIONS No Known Immunizations SOCIAL HISTORY Never Assessed REASON FOR VISIT PLAN OF CARE VITAL SIGNS Height 71 in 2012-11-01 Weight 217 lbs 2012-11-01 Temperature 97.5 degrees Fahrenheit 2012-11-01 Heart Rate 80 bpm 2012-11-01 Respiratory Rate 16 2012-11-01 Blood pressure systolic 122 mmHg 2012-11-01 Blood pressure diastolic 80 mmHg 2012-11-01 MEDICATIONS Unknown Medications RESULTS No Results PROCEDURES Procedure Date Ordered Result Body Site COMPLETE CBC W/AUTO DIFF WBC November 01, 2012 MICROALBUMIN, SEMIQUANT November 01, 2012 LIPID PANEL November 01, 2012 COMPREHEN METABOLIC PANEL November 01, 2012 ELECTROCARDIOGRAM, TRACING November 01, 2012 VENIPUNCT, ROUTINE* November 01, 2012 INSTRUCTIONS MEDICATIONS ADMINISTERED No Known Medications MEDICAL [...]
--- OUTSIDE RECORDS SUMMARY | 2019-11-11 02:32 | XMS REPORT ---
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 Name Role Phone ONEILJAYE Unavailable PROBLEMS Type Condition ICD9-CM Code TCD19-PX Code Onset Dates Condition S tatus SNOMED Code Problem Type 2 diabetes mellitus without complications E11 .9 Active 655878890 Problem Essential (primary) hypertension I10 Active 56626777 Problem Type 2 diabetes mellitus with foot ulcer E11.621 Active 211860663 Problem Atherosclerotic heart diseas e of [place] coronary artery without angina pectoris I25.10 Active [id number] Problem Controlled type 2 diabetes m ellitus without complication, without long- term current use of insulin E11.9 Active 686401215 Problem Neuropathy G62.9 Active 031080980 Problem Seasonal allergic rhinitis due to other allergic trigger J30.89 Active 311022564 Problem Bilateral tinnitus H93.13 Active 4 360091146462 Problem Type 2 diabetes mellitus with hyperglycemia E11.65 Active 123117832519315 Problem Type 2 diabetes 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.49 Active 61259216 Problem Observed sleep apnea G47.30 Active 25201578 Problem Other elevated white blood cell (WBC) count D72.82 8 Active 184184251 Problem Tinnitus of both ears H93.13 Active 9237580971111 Problem Hypertension, benign I10 Active 81817152 Problem Tinnitus of left ear H93.12 Active 8615552907418 Problem Elevated white blood cell count, unspecified D72.8 29 Active 016864840 Problem Type 2 diabetes mellitus wit h diabetic neuropathy, without long-term current use of insulin E11.40 Active 75444 006 Problem Cerebrovascular accident (CVA) due to em bolism of other cerebral artery I63.49 Active 819147326 Problem Altered mental status R41.82 Active 169777352 Problem Gastroesophageal reflux disease with esophagitis K 21.0 Active 950321257 ALLERGIES No Information ENCOUNTERS Encounter Location Date Diagnosis [facility] [address] [facility] [id number] [address] [place] [phone] 24 Sep, 2019 Encounter for screening labo ratory testing for COVID-19 virus Z11.59 [facility] [address] [facility] [id number] [address] [place] [id number] 24 Sep, 2019 [facility] [address] [facility] [id number] [address] [place] [id number] 16 Sep, 2019 Type 2 diabetes mellitus wit hout complications E11.9 [facility] [address] [facility] [id number] [address] [place] [id number] 16 Sep, 2019 [facility] [address] [place] [id number] [address] [place] [id number] 03 Sep, 2019 Essential (primary) hyperten felecia I10 [facility] [address] [facility] [id number] [address] [place] [phone] August, Type 2 diabetes mellitus wit hout complications E11.9 [facility] [address] [place] [id number] [address] [place] [phone] 15 Jul, 2019 Essential (primary) hyperten felecia I10 and Type 2 diabetes mellitus without complications E11.9 [facility] [address] [facility] [id number] [address] [place] [phone] Jun, Type 2 diabetes mellitus wit hout complications E11.9 [facility] [address] [facility] [id number] [address] [place] [phone] Jun, [facility] [address] [facility] [id number] [address] [place] [phone] Jun, Type 2 diabetes mellitus wit hout complications E11.9 [facility] [address] [facility] [id number] [address] [place] [phone] 05 Jun, 2019 [facility] [address] [facility] [id number] [address] [place] [phone] 28 May, 2019 [facility] [address] [place] [id number] [address] [place] [phone] May, Type 2 diabetes mellitus wit hout complications E11.9 [facility] [address] [id number] [address] [place] [phone] Mar, Neuropathy G62.9 [facility] [address] [id number] [address] [place] [phone] Mar, [facility] [address] [id number] [address] [place] [phone] Dec, [facility] [address] [id number] [address] [place] [phone] Nov, Actinic keratoses L57.0 [facility] [address] [id number] [address] [place] [phone] Nov, [facility] [address] [id number] [address] [place] [phone] Nov, Type 2 diabetes mellitus wit hout complications E11.9 [facility] [address] [id number] [address] [place] [phone] Oct, Controlled type 2 diabetes m ellitus without complication, without long-term current use of insulin E11.9 [facility] [address] [id number] [address] [place] [phone] Oct, [facility] [address] [id number] [address] [place] [phone] Oct, [facility] [address] [id number] [address] [place] [phone] Oct, Controlled type 2 diabetes m ellitus without complication, without long-term current use of insulin E11.9 [facility] [address] [id number] [address] [place] [phone] Oct, Essential (primary) hyperten felecia I10 ; Type 2 diabetes mellitus without complications E11.9 ; Actinic keratoses L57.0 and Seborrheic keratoses L82.1 [facility] [address] [id number] [address] [place] [phone] Oct, [facility] [address] [facility] [id number] [address] [place] [phone] Sep, Hypertension, benign I10 and Controlled type 2 diabetes mellitus without complication, without long-term current use of insulin E11.9 [facility] [address] [id number] [address] [place] [phone] Sep, Other elevated white blood c ell (WBC) count D72.828 [facility] [address] [id number] [address] [place] [phone] August, Neuropathy G62.9 [facility] [address] [id number] [address] [place] [phone] August, Other elevated white blood c ell (WBC) count D72.828 [facility] [address] [facility] [id number] [address] [place] [phone] August, Type 2 diabetes mellitus wit h foot ulcer E11.621 [facility] [address] [id number] [address] [place] [phone] Jul, [facility] [address] [facility] [id number] [address] [place] [phone] Jul, Neuropathy G62.9 [facility] [address] [facility] [id number] [address] [place] [phone] Jun, [facility] [address] [facility] [id number] [address] [place] [phone] Jun, Neuropathy G62.9 [facility] [address] [facility] [id number] [address] [place] [phone] May, Neuropathy G62.9 [facility] [address] [facility] [id number] [address] [place] [phone] Mar, Type 2 diabetes mellitus wit hout complications E11.9 [facility] [address] [facility] [id number] [address] [place] [phone] Feb, Neuropathy G62.9 [facility] [address] [id number] 13 Feb, 2018 Actinic keratoses L57.0 [place] [address] [id number] 09 Feb, 2018 Type 2 diabetes mellitus wit hout complications E11.9 ; Tobacco abuse Z72.0 ; Tobacco abuse counseling Z71.6 and Atherosclerotic heart disease of [place] coronary artery without angina pectoris I25.10 [place] [address] [id number] 08 Feb, 2018 Type 2 diabetes mellitus wit hout complications E11.9 ; Tobacco abuse Z72.0 ; Tobacco abuse counseling Z71.6 ; Atherosclerotic heart disease of [place] coronary artery without angina pectoris I25.10 ; Seborrheic keratoses L82.1 and Gastroesophageal reflux disease with esophagitis K21.0 [facility] [place] [address] [address] Jan, Abscess L02.91 [place] [address] [address] Jan, Neuropathy G62.[address] [id number] 20 Dec, 2017 Neuropathy G62.9 ; Cerebrova scular accident (CVA) due to embolism of other cerebral artery I63.49 and Seasonal allergic rhinitis due to other allergic trigger J30.89 [facility] [place] [address] [address] Dec, Altered mental status R41.[address] [id number] 16 Nov, 2017 Type 2 diabetes mellitus wit h diabetic neuropathy, without long- term current use of insulin E11.40 [place] [address] [id number] 17 Oct, 2017 Neuropathy G62.9 ; Type 2 di abetes mellitus with other diabetic neurological complication E11.49 ; Type 2 diabetes mellitus with hyperglycemia E11.65 ; Actinic keratoses L57.0 and Observed sleep apnea G47.30 [facility] [address] [facility] [id number] [address] [place] [phone] Sep, Tinnitus of both ears H93.13 and Actinic keratitis, unspecified laterality H16.139 [facility] [address] [address] August, Type 2 diabetes mellitus wit hout complications E11.9 and Controlled type 2 diabetes mellitus without complication, without long-term current use of insulin E11.9 [facility] [address] [facility] [id number] [address] August, Seborrheic keratoses L82.1 a nd Tinnitus of left ear H93.12 [place] [address] [address] Jul, Controlled type 2 diabetes m ellitus without complication, without long-term current use of insulin E11.9 ; Seborrheic keratoses L82.1 ; Bilateral tinnitus H93.13 and Seasonal allergic rhinitis due to other allergic trigger J30.89 [facility] [address] [place] [id number] [place] [id number] May, Encounter for dental examina tion Z01.20 [facility] [id number] [place] [id number] Jan, Encounter for dental examina tion Z01.20 [facility] [address] [place] [id number] [address] [place] [phone] Jan, Type 2 diabetes mellitus wit hout complications E11.9 and Acute non- recurrent maxillary sinusitis J01.00 [facility] [address] [place] [id number] [place] [phone] Dec, Right ear impacted cerumen H 61.21 and Acute suppurative otitis media of right ear without spontaneous rupture of tympanic membrane, recurrence not specified H66.001 [facility] [address] [place] [id number] [place] [phone] Nov, Type 2 diabetes mellitus wit hout complications E11.9 and Neuropathy G62.9 [facility] [address] [id number] [address] [place] [id number] Oct, Encounter for dental examina tion Z01.20 [facility] [address] [id number] [address] [place] [id number] Jun, Dental examination Z01.20 [facility] [address] [facility] [id number] [address] [place] [phone] 16 Jun, 2016 Atherosclerotic heart diseas e of [place] coronary artery without angina pectoris I25.10 [facility] [address] [facility] [id number] [address] [place] [id number] 15 Jun, 2016 Atherosclerotic heart diseas e of [place] coronary artery without angina pectoris I25.10 [facility] [address] [facility] [id number] [address] [place] [id number] Jun, Type 2 diabetes mellitus wit hout complications E11.9 [facility] [address] [id number] [address] [place] [address] [id number] May, Encounter for dental examina tion Z01.20 [facility] [address] [id number] [address] [place] [id number] Apr, Dental caries K02.9 [facility] [address] [id number] [address] [place] [address] [id number] Apr, Dental examination Z01.20 [facility] [address] [facility] [id number] [address] [place] [phone] Dec, Type 2 diabetes mellitus wit hout complications E11.9 ; 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 ; Essential (primary) hypertension I10 and Elevated white blood cell count, unspecified D72.829 [facility] [address] [facility] [id number] [address] [place] [phone] Jul, Diabetes mellitus without me ntion of complication, type II or unspecified type, not stated as uncontrolled 250.00 [place] [address] [id number] [address] [place] [phone] 11 Jul, 2015 [facility] [address] [id number] [address] [place] [id number] 07 Jan, 2015 Encounter for immunization Z 23 [facility] [address] [id number] [address] [place] [address] [id number] 21 Dec, 2014 Dental examination V72.2 [facility] [address] [id number] [address] [place] [id number] 07 Nov, 2014 Cancer of lung, upper lobe 1 62.3 [facility] [address] [id number] [address] [place] [phone] Sep, Lung cancer 162.9 ; CAD (cor onary artery disease) 414.00 and Depression 311 [facility] [address] [id number] [address] [place] [id number] 14 Jul, 2014 [facility] [address] [id number] [address] [place] [id number] Jul, [facility] [address] [id number] [address] [place] [phone] Jun, [facility] [address] [id number] [address] [place] [phone] Jun, [facility] [address] [id number] [address] [place] [id number] Mar, [facility] [address] [id number] [address] [place] [phone] Mar, [facility] [address] [id number] [address] [place] [phone] Jan, [facility] [address] [id number] [address] [place] [phone] Jan, [facility] [address] [id number] [address] [place] [phone] Jan, [facility] [address] [id number] [address] [place] [address] [place] [address] Jan, [facility] [address] [id number] [address] [place] [address], [place] [address] Jan, [facility] [address] [id number] [address] [place] [address], [place] [address] Jan, [facility] [address] [id number] [address] [place] [address], [place] [address] Dec, [facility] [address] [id number] [address] [place] [address], [place] [address] Dec, [facility] [address] [id number] [address] [place] [address], [place] [address] Oct, [facility] [address] [id number] [address] [place] [address], [place] [address] Oct, [facility] [address] [id number] [address] [place] [address], [place] [address] Sep, [facility] [address] [id number] [address] [place] [address], [place] [address] Sep, [facility] [address] [id number] [address] [place] [address], [place] [address] August, [facility] [address] [id number] [address] [place] [address], [place] [address] August, [facility] [address] [id number] [address] [place] [address], [place] [address] August, [facility] [address] [id number] [address] [place] [address], [place] [address] August, [facility] [address] [id number] [address] [place] [address], [place] [address] August, [facility] [address] [id number] [address] [place] [address], [place] [address] August, [facility] [address] [id number] [address] [place] [address], [place] [address] Jun, [facility] [address] [id number] [address] [place] [address], [place] [address] Jun, [facility] [address] [id number] [address] [place] [address], [place] [address] May, [facility] [address] [id number] [address] [place] [address], [place] [address] May, [facility] [address] [id number] [address] [place] [address], [place] [address] May, [facility] [address] [id number] [address] [place] [address], [place] [address] May, [facility] [address] [id number] [address] [place] [address], [place] [address] Apr, [facility] [address] [id number] [address] [place] [address], [place] [address] Apr, [facility] [place] [address] [id number] [address] [place] [address], [place] [address] Mar, [facility] [address] [id number] [address] [place] [address], [place] [address] Mar, [facility] [address] [id number] [address] [place] [address], [place] [address] Mar, [facility] [address] [id number] [address] [place] [address], [place] [address] Mar, [facility] [address] [id number] [address] [place] [address], [place] [address] Mar, [facility] [address] [id number] [address] [place] [address], [place] [address] Mar, [facility] [address] [id number] [address] [place] [address], [place] [address] Mar, [facility] [address] [id number] [address] [place] [address], [place] [address] Mar, [facility] [address] [id number] [address] [place] [phone] Mar, [facility] [address] [id number] [address] [place] [address], [place] [address] Feb, [facility] [address] [id number] [address] [place] [address], [place] [address] Feb, [facility] [address] [id number] [address] [place] [address], [place] [address] Jan, [facility] [address] [id number] [address] [place] [address], [place] [address] Jan, [facility] [address] [id number] [address] [place] [address], [place] [address] Jan, [facility] [address] [id number] [address] [place] [address], [place] [address] Jan, [facility] [address] [id number] [address] [place] [address], [place] [address] Jan, [facility] [address] [id number] [address] [place] [address], [place] [address] Dec, [facility] [address] [id number] [address] [place] [address], [place] [address] Nov, [facility] [address] [id number] [address] [place] [address], [place] [address] Nov, [facility] [address] [id number] [address] [place] [address], [place] [address] Nov, [facility] [address] [id number] [address] [place] [address] Oct, [facility] [address] [id number] [address] [place] [address], [place] [address] Oct, [facility] [address] [id number] [address] [place] [address], [place] [address] Sep, [facility] [address] [id number] [address] [place] [address], [place] [address] Sep, [facility] [address] [id number] [address] [place] [address], [place] [address] August, [facility] [place] [address] [id number] [address] [place] [address], [place] [address] August, [facility] [address] [id number] [address] [place] [address], [place] [address] August, [facility] [address] [id number] [address] [place] [address], [place] [address] August, [facility] [address] [id number] [address] [place] [address], [place] [address] Jul, [facility] [address] [id number] [address] [place] [address], [place] [address] Jul, [facility] [address] [id number] [address] [place] [address], [place] [address] Jun, [facility] [address] [id number] [address] [place] [address], [place] [address] May, [facility] [address] [id number] [address] [place] [address], [place] [address] May, [facility] [address] [id number] [address] [place] [address], [place] [address] May, [facility] [address] [id number] [address] [place] [address], [place] [address] May, [facility] [address] [id number] [address] [place] [address], [place] [address] May, [facility] [address] [id number] [address] [place] [address], [place] [address] May, [facility] [address] [id number] [address] [place] [address], [place] [address] May, [facility] [address] [id number] [address] [place] [address], [place] [address] August, [facility] [place] [address] [id number] [address] [place] [phone] Jul, [facility] [address] [id number] [address] [place] [phone] Jul, [facility] [address] [id number] [address] [place] [phone] May, [facility] [address] [id number] [address] [place] [phone] May, [facility] [address] [id number] [address] [place] [phone] Mar, [facility] [address] [id number] [address] [place] [phone] Sep, [facility] [address] [id number] [address] [place] [phone] Jul, [facility] [address] [id number] [address] [place] [phone] Mar, [facility] [address] [id number] [address] [place] [phone] Feb, [facility] [address] [id number] [address] [place] [phone] Feb, IMMUNIZATIONS No Known Immunizations SOCIAL HISTORY Never Assessed REASON FOR VISIT PLAN OF CARE VITAL SIGNS Height 71 in 2013-03-21 Weight 214.4 lbs 2013-03-21 Temperature 97.2 degrees Fahrenheit 2013-03-21 Heart Rate 80 bpm 2013-03-21 Respiratory Rate 18 2013-03-21 Blood pressure systolic 128 mmHg 2013-03-21 Blood pressure diastolic 72 mmHg 2013-03-21 MEDICATIONS Unknown Medications RESULTS No Results PROCEDURES Procedure Date Ordered Result Body Site GLYCATED HEMOGLOBIN TEST Mar 21, 2013 INSTRUCTIONS MEDICATIONS ADMINISTERED No Known Medications [...]
--- OUTSIDE RECORDS SUMMARY | 2019-11-11 02:33 | XMS REPORT ---
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 Name Role Phone ZIA MOSLEY Unavailable PROBLEMS Type Condition ICD9-CM Code IKR08-XV Code Onset Dates Condition S tatus SNOMED Code Problem Type 2 diabetes mellitus without complications E11 .9 Active 863399839 Problem Essential (primary) hypertension I10 Active 96408607 Problem Type 2 diabetes mellitus with foot ulcer E11.621 Active 980126989 Problem Atherosclerotic heart diseas e of [place] coronary artery without angina pectoris I25.10 Active 124791732574691 Problem Controlled type 2 diabetes m ellitus without complication, without long- term current use of insulin E11.9 Active 778498849 Problem Neuropathy G62.9 Active 755173401 Problem Seasonal allergic rhinitis due to other allergic trigger J30.89 Active 498872233 Problem Bilateral tinnitus H93.13 Active 4 134304406792 Problem Type 2 diabetes mellitus with hyperglycemia E11.65 Active 443553681334802 Problem Type 2 diabetes 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.49 Active 97885931 Problem Observed sleep apnea G47.30 Active 19140299 Problem Other elevated white blood cell (WBC) count D72.82 8 Active 808622930 Problem Tinnitus of both ears H93.13 Active 2470588719517 Problem Hypertension, benign I10 Active 36756871 Problem Tinnitus of left ear H93.12 Active 9676136587155 Problem Elevated white blood cell count, unspecified D72.8 29 Active 196454466 Problem Type 2 diabetes mellitus wit h diabetic neuropathy, without long-term current use of insulin E11.40 Active 55635 006 Problem Cerebrovascular accident (CVA) due to em bolism of other cerebral artery I63.49 Active 768941249 Problem Altered mental status R41.82 Active 207950573 Problem Gastroesophageal reflux disease with esophagitis K 21.0 Active 461324198 ALLERGIES No Information ENCOUNTERS Encounter Location Date Diagnosis [facility] [address] [facility] [id number] [address] [place] [id number] 15 Jul, 2019 Essential (primary) hyperten felecia I10 and Type 2 diabetes mellitus without complications E11.9 [facility] [address] [facility] [id number] [address] [place] [phone] 27 Jun, 2019 Type 2 diabetes mellitus wit hout complications E11.9 [facility] [address] [facility] [id number] [address] [place] [address] Jun, [facility] [address] [facility] [id number] [address] [place] [address] Jun, Type 2 diabetes mellitus wit hout complications E11.9 [facility] [address] [facility] [id number] [address] [place] [address] Jun, [facility] [address] [facility] [id number] [address] [place] [address] May, [facility] [address] [facility] [id number] [address] [place] [id number] May, Type 2 diabetes mellitus wit hout complications E11.9 [facility] [address] [facility] [id number] [address] [place] [address] Mar, Neuropathy G62.9 [facility] [address] [facility] [id number] [address] [place] [phone] Mar, [facility] [address] [facility] [id number] [address] [place] [id number] Dec, [facility] [address] [facility] [id number] [address] [place] [address] Nov, Actinic keratoses L57.0 [facility] [address] [facility] [id number] [address] [place] [phone] Nov, [facility] [address] [facility] [id number] [address] [place] [address] Nov, Type 2 diabetes mellitus wit hout complications E11.9 [place] [address] [facility] [id number] [address] [place] [phone] Oct, Controlled type 2 diabetes m ellitus without complication, without long-term current use of insulin E11.9 [place] [address] [facility] [id number] [address] [place] [address] Oct, [place] [address] [facility] [id number] [address] [place] [phone] Oct, [place] [address] [facility] [id number] [address] [place] [phone] Oct, Controlled type 2 diabetes m ellitus without complication, without long-term current use of insulin E11.9 [place] [address] [facility] [id number] [address] [place] [address] Oct, Essential (primary) hyperten felecia I10 ; Type 2 diabetes mellitus without complications E11.9 ; Actinic keratoses L57.0 and Seborrheic keratoses L82.1 [place] [address] [facility] [id number] [address] [place] [address] Oct, [place] [address] [facility] [id number] [address] [place] [address] Sep, Hypertension, benign I10 and Controlled type 2 diabetes mellitus without complication, without long-term current use of insulin E11.9 [place] [address] [facility] [id number] [address] [place] [address] Sep, Other elevated white blood c ell (WBC) count D72.828 [place] [address] [facility] [id number] [address] [place] [address] August, Neuropathy G62.9 [place] [address] [facility] [id number] [address] [place] [address] August, Other elevated white blood c ell (WBC) count D72.828 [place] [address] [facility] [id number] [address] [place] [address] August, Type 2 diabetes mellitus wit h foot ulcer E11.621 [facility] [address] [facility] [id number] [address] [place] [address] Jul, [facility] [address] [facility] [id number] [address] [place] [address] Jul, Neuropathy G62.9 [facility] [address] [facility] [id number] [address] [place] [address] Jun, [facility] [address] [facility] [id number] [address] [place] [address] Jun, Neuropathy G62.9 [facility] [address] [facility] [id number] [address] [place] [address] May, Neuropathy G62.9 [facility] [address] [facility] [id number] [address] [place] [phone] Mar, Type 2 diabetes mellitus wit hout complications E11.9 [facility] [address] [facility] [id number] [address] [place] [address] Feb, Neuropathy G62.9 [facility] [address] [facility] [id number] [address] [place] [address] Feb, Actinic keratoses L57.0 [facility] [address] [facility] [id number] [address] [place] [id number] Feb, Type 2 diabetes mellitus wit hout complications E11.9 ; Tobacco abuse Z72.0 ; Tobacco abuse counseling Z71.6 and Atherosclerotic heart disease of [place] coronary artery without angina pectoris I25.10 [facility] [address] [facility] [id number] [address] [place] [address] 08 Feb, 2018 Type 2 diabetes mellitus wit hout complications E11.9 ; Tobacco abuse Z72.0 ; Tobacco abuse counseling Z71.6 ; Atherosclerotic heart disease of [place] coronary artery without angina pectoris I25.10 ; Seborrheic keratoses L82.1 and Gastroesophageal reflux disease with esophagitis K21.0 [facility] [address] [facility] [id number] [address] [place] [address] Jan, Abscess L02.91 [place] [id number] [place] [address] Jan, Neuropathy G62.9 [place] [address] [address] 20 Dec, 2017 Neuropathy G62.9 ; Cerebrova scular accident (CVA) due to embolism of other cerebral artery I63.49 and Seasonal allergic rhinitis due to other allergic trigger J30.89 [facility] [address] [address] 10 Dec, 2017 Altered mental status R41.82 [place] [address] [address] 16 Nov, 2017 Type 2 diabetes mellitus wit h diabetic neuropathy, without long- term current use of insulin E11.40 [place] [address] [address] Oct, Neuropathy G62.9 ; Type 2 di abetes mellitus with other diabetic neurological complication E11.49 ; Type 2 diabetes mellitus with hyperglycemia E11.65 ; Actinic keratoses L57.0 and Observed sleep apnea G47.30 [place] [address] [address] Sep, Tinnitus of both ears H93.13 and Actinic keratitis, unspecified laterality H16.139 [place] [address] [address] August, Type 2 diabetes mellitus wit hout complications E11.9 and Controlled type 2 diabetes mellitus without complication, without long-term current use of insulin E11.9 [place] [address] [address] August, Seborrheic keratoses L82.1 a nd Tinnitus of left ear H93.12 [place] [address] [address] Jul, Controlled type 2 diabetes m ellitus without complication, without long-term current use of insulin E11.9 ; Seborrheic keratoses L82.1 ; Bilateral tinnitus H93.13 and Seasonal allergic rhinitis due to other allergic trigger J30.89 [facility] [address] [id number] [address] [place] [address] [phone] May, Encounter for dental examina tion Z01.20 [facility] [address] [id number] [address] [place] [phone] Jan, Encounter for dental examina tion Z01.20 [facility] [address] [facility] [id number] [address] [place] [address] Jan, Type 2 diabetes mellitus wit hout complications E11.9 and Acute non- recurrent maxillary sinusitis J01.00 [facility] [address] [facility] [id number] [address] [place] [id number] Dec, Right ear impacted cerumen H 61.21 and Acute suppurative otitis media of right ear without spontaneous rupture of tympanic membrane, recurrence not specified H66.001 [facility] [address] [facility] [id number] [address] [place] [address] Nov, Type 2 diabetes mellitus wit hout complications E11.9 and Neuropathy G62.9 [facility] [address] [id number] [address] [place] [id number] Oct, Encounter for dental examina tion Z01.20 [facility] [address] [id number] [address] [place] [address] [phone] Jun, Dental examination Z01.20 [facility] [address] [facility] [id number] [address] [place] [id number] 16 Jun, 2016 Atherosclerotic heart diseas e of [place] coronary artery without angina pectoris I25.10 [facility] [address] [facility] [id number] [address] [place] [address] 15 Jun, 2016 Atherosclerotic heart diseas e of [place] coronary artery without angina pectoris I25.10 [facility] [address] [facility] [id number] [address] [place] [address] Jun, Type 2 diabetes mellitus wit hout complications E11.9 [facility] [address] [facility] [id number] [address] [place] [phone] May, Encounter for dental examina tion Z01.20 [facility] [address] [id number] [address] [place] [address] [id number] Apr, Dental caries K02.9 [facility] [address] [facility] [id number] [place] [address] [phone] Apr, Dental examination Z01.20 [facility] [address] [place] [id number] [address] [place] [address] 08 Dec, 2015 Type 2 diabetes mellitus wit hout complications E11.9 ; 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 ; Essential (primary) hypertension I10 and Elevated white blood cell count, unspecified D72.829 [place] [address] [address] Jul, Diabetes mellitus without me ntion of complication, type II or unspecified type, not stated as uncontrolled 250.00 [facility] [address] [address] Jul, [facility] [address] [address] Jan, Encounter for immunization Z 23 [facility] [address] [facility] [id number] [address] [place] [phone] Dec, Dental examination V72.2 [facility] [address] [place] [id number] [address] [place] [address] Nov, Cancer of lung, upper lobe 1 62.3 [place] [address] [address] Sep, Lung cancer 162.9 ; CAD (cor onary artery disease) 414.00 and Depression 311 [facility] [address] [address] Jul, [facility] [place] [facility] [address] [id number] [address] [place] [address], [place] [address] Jul, [facility] [address] [id number] [address] [place] [address], [place] [address] Jun, [facility] [address] [id number] [address] [place] [address], [place] [address] Jun, [facility] [address] [id number] [address] [place] [address], [place] [address] Mar, [facility] [address] [id number] [address] [place] [address], [place] [address] Mar, [facility] [address] [id number] [address] [place] [address], [place] [address] Jan, [facility] [address] [id number] [address] [place] [address], [place] [address] Jan, [facility] [address] [id number] [address] [place] [address], [place] [address] Jan, [facility] [address] [id number] [address] [place] [address], [place] [address] Jan, [facility] [address] [id number] [address] [place] [address], [place] [address] Jan, [facility] [address] [id number] [address] [place] [address], [place] [address] Jan, [facility] [place] [facility] [address] [id number] [address] [place] [address], [place] [address] Dec, [facility] [address] [id number] [address] [place] [address], [place] [address] Dec, [facility] [place] [facility] [address] [id number] [address] [place] [address], [place] [address] Oct, [facility] [place] [facility] [address] [id number] [address] [place] [address], [place] [address] Oct, [facility] [place] [facility] [address] [id number] [address] [place] [address], [place] [address] Sep, [facility] [address] [id number] [address] [place] [address], [place] [address] Sep, [facility] [place] [facility] [address] [id number] [address] [place] [address], [place] [address] August, [facility] [address] [id number] [address] [place] [address], [place] [address] August, [facility] [place] [facility] [address] [id number] [address] [place] [address], [place] [address] August, [facility] [address] [id number] [address] [place] [address], [place] [address] August, [facility] [address] [id number] [address] [place] [address], [place] [address] August, [facility] [address] [id number] [address] [place] [address], [place] [address] August, [facility] [place] [facility] [address] [id number] [address] [place] [address], [place] [address] Jun, [facility] [place] [facility] [address] [id number] [address] [place] [address], [place] [address] Jun, [facility] [place] [facility] [address] [id number] [address] [place] [address], [place] [address] May, [facility] [place] [facility] [address] [id number] [address] [place] [address], [place] [address] May, [facility] [place] [facility] [address] [id number] [address] [place] [address], [place] [address] May, [facility] [place] [facility] [address] [id number] [address] [place] [address], [place] [address] May, [facility] [place] [facility] [address] [id number] [address] [place] [address], [place] [address] Apr, [facility] [place] [facility] [address] [id number] [address] [place] [address], [place] [address] Apr, [facility] [place] [facility] [address] [id number] [address] [place] [address], [place] [address] Mar, [facility] [address] [id number] [address] [place] [address], [place] [address] Mar, [facility] [address] [id number] [address] [place] [address], [place] [address] Mar, [facility] [address] [id number] [address] [place] [address], [place] [address] Mar, [facility] [address] [id number] [address] [place] [address], [place] [address] Mar, [facility] [address] [id number] [address] [place] [address], [place] [address] Mar, [facility] [address] [id number] [address] [place] [address], [place] [address] Mar, [facility] [address] [id number] [address] [place] [address], [place] [address] Mar, [facility] [address] [id number] [address] [place] [address], [place] [address] Mar, [facility] [address] [id number] [address] [place] [address], [place] [address] Feb, [facility] [address] [id number] [address] [place] [address], [place] [address] Feb, [facility] [address] [id number] [address] [place] [address], [place] [address] 24 Jan, 2013 [facility] [address] [id number] [address] [place] [address] Jan, [facility] [address] [id number] [address] [place] [address], [place] [address] Jan, [facility] [address] [id number] [address] [place] [address], [place] [address] Jan, [facility] [address] [id number] [address] [place] [address], [place] [address] Jan, [facility] [address] [id number] [address] [place] [address], [place] [address] Dec, [facility] [address] [id number] [address] [place] [address], [place] [address] Nov, [facility] [address] [id number] [address] [place] [address], [place] [address] Nov, [facility] [address] [id number] [address] [place] [address], [place] [address] Nov, [facility] [address] [id number] [address] [place] [address], [place] [address] Oct, [facility] [address] [id number] [address] [place] [address], [place] [address] Oct, [facility] [address] [id number] [address] [place] [address], [place] [address] Sep, [facility] [address] [id number] [address] [place] [address], [place] [address] Sep, [facility] [address] [id number] [address] [place] [address], [place] [address] August, [facility] [address] [id number] [address] [place] [address], [place] [address] August, [facility] [address] [id number] [address] [place] [address], [place] [address] August, [facility] [address] [id number] [address] [place] [address], [place] [address] August, [facility] [address] [id number] [address] [place] [address], [place] [address] 16 Jul, 2012 [facility] [address] [id number] [address] [place] [address], [place] [address] Jul, [facility] [address] [id number] [address] [place] [address], [place] [address] Jun, [facility] [address] [id number] [address] [place] [address], [place] [address] 26 May, 2012 [facility] [address] [id number] [address] [place] [address], [place] [address] May, [facility] [address] [id number] [address] [place] [address], [place] [address] 18 May, 2012 [facility] [address] [id number] [address] [place] [address], [place] [address] 15 May, 2012 [facility] [address] [id number] [address] [place] [address], [place] [address] May, [facility] [address] [id number] [address] [place] [address], [place] [address] May, [facility] [address] [id number] [address] [place] [address], [place] [address] May, [facility] [address] [id number] [address] [place] [address], [place] [address] August, [facility] [address] [id number] [address] [place] [address], [place] [address] 23 Jul, 2011 [facility] [address] [id number] [address] [place] [address], [place] [address] Jul, [facility] [address] [id number] [place] [address], [place] [id number] 03 May, 2011 [facility] [address] [id number] [place] [address], [place] [id number] May, [facility] [address] [id number] [place] [address], [place] [id number] Mar, [facility] [address] [id number] [place] [address], [place] [id number] 11 Sep, 2009 [facility] [address] [id number] [address] [place] [address], [place] [id number] 16 Jul, 2009 [facility] [address] [id number] [address] [place] [address], [place] [id number] Mar, [facility] [address] [facility] [id number] [address], [place] [address] Feb, [facility] [address] [facility] [id number] [place] [id number] Feb, IMMUNIZATIONS No Known Immunizations SOCIAL HISTORY Never Assessed REASON FOR VISIT PLAN OF CARE VITAL SIGNS MEDICATIONS No Known Medications RESULTS No Results PROCEDURES No Known [...]
--- OUTSIDE RECORDS SUMMARY | 2019-11-11 02:33 | XMS REPORT ---
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 Active 995287969769232 Problem Controlled type 2 diabetes m ellitus without complication, without long- term current use of insulin E11.9 Active 545541924 Problem Neuropathy G62.9 Active 525070118 Problem Seasonal allergic rhinitis due to other allergic trigger J30.89 Active 271742469 Problem Bilateral tinnitus H93.13 Active 4 926191410988 Problem Type 2 diabetes mellitus with hyperglycemia E11.65 Active 807026856763498 Problem Type 2 diabetes 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.49 Active 59491110 Problem Observed sleep apnea G47.30 Active 91182358 Problem Other elevated white blood cell (WBC) count D72.82 8 Active 869315277 Problem Tinnitus of both ears H93.13 Active 4806289791416 Problem Hypertension, benign I10 Active 84950572 Problem Tinnitus of left ear H93.12 Active 4560415446171 Problem Elevated white blood cell count, unspecified D72.8 29 Active 970212891 Problem Type 2 diabetes mellitus wit h diabetic neuropathy, without long-term current use of insulin E11.40 Active 27253 006 Problem Cerebrovascular accident (CVA) due to em bolism of other cerebral artery I63.49 Active 995053738 Problem Altered mental status R41.82 Active 847449808 Problem Gastroesophageal reflux disease with esophagitis K 21.0 Active 327974743 ALLERGIES No Information ENCOUNTERS Encounter Location Date Diagnosis [facility] [address] [facility] [id number] [address] [place] [address] August, Type 2 diabetes mellitus wit hout complications E11.9 [facility] [address] [id number] [address] [place] [address] Jul, Essential (primary) hyperten felecia I10 and Type 2 diabetes mellitus without complications E11.9 [facility] [address] [id number] [address] [place] [address] Jun, Type 2 diabetes mellitus wit hout complications E11.9 [facility] [address] [id number] [address] [place] [address] Jun, [facility] [address] [id number] [address] [place] [address] Jun, Type 2 diabetes mellitus wit hout complications E11.9 [facility] [address] [id number] [address] [place] [address] Jun, [facility] [address] [facility] [id number] [address] [place] [address] May, [facility] [address] [id number] [address] [place] [address] May, Type 2 diabetes mellitus wit hout complications E11.9 [facility] [address] [facility] [id number] [address] [place] [address] Mar, Neuropathy G62.9 [facility] [address] [facility] [id number] [address] [place] [address] Mar, [facility] [address] [facility] [id number] [address] [place] [address] Dec, [facility] [address] [id number] [address] [place] [address] Nov, Actinic keratoses L57.0 [facility] [address] [id number] [address] [place] [address] Nov, [facility] [address] [facility] [id number] [address] [place] [address] Nov, Type 2 diabetes mellitus wit hout complications E11.9 [facility] [address] [facility] [id number] [address] [place] [address] Oct, Controlled type 2 diabetes m ellitus without complication, without long-term current use of insulin E11.9 [facility] [address] [facility] [id number] [address] [place] [address] 17 Oct, 2018 [place] [address] [facility] [id number] [address] [place] [address] Oct, [place] [address] [facility] [id number] [address] [place] [address] Oct, Controlled type 2 diabetes m ellitus without complication, without long-term current use of insulin E11.9 [place] [address] [facility] [id number] [address] [place] [address] Oct, Essential (primary) hyperten felecia I10 ; Type 2 diabetes mellitus without complications E11.9 ; Actinic keratoses L57.0 and Seborrheic keratoses L82.1 [place] [address] [facility] [id number] [address] [place] [address] Oct, [place] [address] [facility] [id number] [address] [place] [address] Sep, Hypertension, benign I10 and Controlled type 2 diabetes mellitus without complication, without long-term current use of insulin E11.9 [place] [address] [facility] [id number] [address] [place] [address] Sep, Other elevated white blood c ell (WBC) count D72.828 [place] [address] [facility] [id number] [address] [place] [address] August, Neuropathy G62.9 [place] [address] [facility] [id number] [address] [place] [address] August, Other elevated white blood c ell (WBC) count D72.828 [place] [address] [facility] [id number] [address] [place] [address] August, Type 2 diabetes mellitus wit h foot ulcer E11.621 [facility] [address] [facility] [id number] [address] [place] [address] Jul, [facility] [address] [facility] [id number] [address] [place] [address] Jul, Neuropathy G62.9 [facility] [address] [facility] [id number] [address] [place] [address] Jun, [facility] [address] [facility] [id number] [address] [place] [address] Jun, Neuropathy G62.9 [facility] [address] [facility] [id number] [address] [place] [address] May, Neuropathy G62.9 [facility] [address] [facility] [id number] [address] [place] [address] Mar, Type 2 diabetes mellitus wit hout complications E11.9 [facility] [address] [facility] [id number] [address] [place] [address] Feb, Neuropathy G62.9 [facility] [address] [facility] [id number] [address] [place] [address] Feb, Actinic keratoses L57.0 [facility] [address] [facility] [id number] [address] [place] [address] Feb, Type 2 diabetes mellitus wit hout complications E11.9 ; Tobacco abuse Z72.0 ; Tobacco abuse counseling Z71.6 and Atherosclerotic heart disease of [place] coronary artery without angina pectoris I25.10 [facility] [address] [facility] [id number] [address] [place] [address] Feb, Type 2 diabetes mellitus wit hout complications E11.9 ; Tobacco abuse Z72.0 ; Tobacco abuse counseling Z71.6 ; Atherosclerotic heart disease of [place] coronary artery without angina pectoris I25.10 ; Seborrheic keratoses L82.1 and Gastroesophageal reflux disease with esophagitis K21.0 [facility] [address] [facility] [id number] [address] [place] [address] Jan, Abscess L02.91 [place] [address] [address] Jan, Neuropathy G62.9 [place] [address] [id number] 20 Dec, 2017 Neuropathy G62.9 ; Cerebrova scular accident (CVA) due to embolism of other cerebral artery I63.49 and Seasonal allergic rhinitis due to other allergic trigger J30.89 [facility] [address] [address] 10 Dec, 2017 Altered mental status R41.82 [place] [address] [id number] 16 Nov, 2017 Type 2 diabetes mellitus wit h diabetic neuropathy, without long- term current use of insulin E11.40 [place] [address] [address] 17 Oct, 2017 Neuropathy G62.9 ; Type 2 di abetes mellitus with other diabetic neurological complication E11.49 ; Type 2 diabetes mellitus with hyperglycemia E11.65 ; Actinic keratoses L57.0 and Observed sleep apnea G47.30 [place] [address] [address] Sep, Tinnitus of both ears H93.13 and Actinic keratitis, unspecified laterality H16.139 [place] [address] [address] August, Type 2 diabetes mellitus wit hout complications E11.9 and Controlled type 2 diabetes mellitus without complication, without long-term current use of insulin E11.9 [place] [address] [address] August, Seborrheic keratoses L82.1 a nd Tinnitus of left ear H93.12 [place] [address] [address] Jul, Controlled type 2 diabetes m ellitus without complication, without long-term current use of insulin E11.9 ; Seborrheic keratoses L82.1 ; Bilateral tinnitus H93.13 and Seasonal allergic rhinitis due to other allergic trigger J30.89 [facility] [address] [id number] [address] [place] [address] [id number] May, Encounter for dental examina tion Z01.20 [facility] [address] [id number] [address] [place] [address] [id number] Jan, Encounter for dental examina tion Z01.20 [facility] [address] [facility] [id number] [address] [place] [address] Jan, Type 2 diabetes mellitus wit hout complications E11.9 and Acute non- recurrent maxillary sinusitis J01.00 [facility] [address] [facility] [id number] [address] [place] [address] Dec, Right ear impacted cerumen H 61.21 and Acute suppurative otitis media of right ear without spontaneous rupture of tympanic membrane, recurrence not specified H66.001 [facility] [address] [facility] [id number] [address] [place] [address] Nov, Type 2 diabetes mellitus wit hout complications E11.9 and Neuropathy G62.9 [facility] [address] [id number] [address] [place] [address] [id number] Oct, Encounter for dental examina tion Z01.20 [facility] [address] [id number] [address] [place] [address] [id number] Jun, Dental examination Z01.20 [facility] [address] [facility] [id number] [address] [place] [address] 16 Jun, 2016 Atherosclerotic heart diseas e of [place] coronary artery without angina pectoris I25.10 [facility] [address] [id number] [address] [place] [address] 15 Jun, 2016 Atherosclerotic heart diseas e of [place] coronary artery without angina pectoris I25.10 [facility] [address] [facility] [id number] [address] [place] [address] Jun, Type 2 diabetes mellitus wit hout complications E11.9 [facility] [address] [place] [id number] [address] [place] [id number] May, Encounter for dental examina tion Z01.20 [facility] [address] [facility] [id number] [address] [place] [address] [id number] Apr, Dental caries K02.9 [facility] [id number] [place] [address] [id number] Apr, Dental examination Z01.20 [facility] [address] [id number] 08 Dec, 2015 Type 2 diabetes mellitus wit hout complications E11.9 ; 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 ; Essential (primary) hypertension I10 and Elevated white blood cell count, unspecified D72.829 [facility] [address] [address] Jul, Diabetes mellitus without me ntion of complication, type II or unspecified type, not stated as uncontrolled 250.00 [facility] [address] [address] Jul, [facility] [address] [address] Jan, Encounter for immunization Z 23 [facility] [address] [facility] [id number] [place] [address] [id number] Dec, Dental examination V72.2 [facility] [address] [address] Nov, Cancer of lung, upper lobe 1 62.3 [place] [address] [address] Sep, Lung cancer 162.9 ; CAD (cor onary artery disease) 414.00 and Depression 311 [facility] [address] [address] 14 Jul, 2014 [facility] [address] [id number] [address] [place] [address], [place] [address] 13 Jul, 2014 [facility] [address] [id number] [address] [place] [address], [place] [address] Jun, [facility] [address] [id number] [address] [place] [address], [place] [address] Jun, [facility] [address] [id number] [address] [place] [address], [place] [address] Mar, [facility] [address] [id number] [address] [place] [address], [place] [address] Mar, [facility] [address] [id number] [address] [place] [address], [place] [address] Jan, [facility] [address] [id number] [address] [place] [address], [place] [address] Jan, [facility] [address] [id number] [address] [place] [address], [place] [address] Jan, [facility] [address] [id number] [address] [place] [address], [place] [address] Jan, [facility] [address] [id number] [address] [place] [address], [place] [address] Jan, [facility] [address] [id number] [address] [place] [address], [place] [address] Jan, [facility] [address] [id number] [address] [place] [address] Dec, [facility] [address] [id number] [address] [place] [address], [place] [address] Dec, [facility] [address] [id number] [address] [place] [address], [place] [address] Oct, [facility] [address] [id number] [address] [place] [address], [place] [address] Oct, [facility] [address] [id number] [address] [place] [address], [place] [address] Sep, [facility] [address] [id number] [address] [place] [address], [place] [address] Sep, [facility] [address] [id number] [address] [place] [address], [place] [address] August, [facility] [address] [id number] [address] [place] [address], [place] [address] August, [facility] [address] [id number] [address] [place] [address], [place] [address] August, [facility] [address] [id number] [address] [place] [address], [place] [address] August, [facility] [address] [id number] [address] [place] [address], [place] [address] August, [facility] [address] [id number] [address] [place] [address], [place] [address] August, [facility] [address] [id number] [address] [place] [address], [place] [address] Jun, [facility] [address] [id number] [address] [place] [address], [place] [address] Jun, [facility] [address] [id number] [address] [place] [address], [place] [address] May, [facility] [address] [id number] [address] [place] [address], [place] [address] May, [facility] [address] [id number] [address] [place] [address], [place] [address] May, [facility] [address] [id number] [address] [place] [address], [place] [address] May, [facility] [address] [id number] [address] [place] [address], [place] [address] Apr, [facility] [address] [id number] [address] [place] [address], [place] [address] Apr, [facility] [address] [id number] [address] [place] [address], [place] [address] Mar, [facility] [address] [id number] [address] [place] [address], [place] [address] Mar, [facility] [address] [id number] [address] [place] [address], [place] [address] Mar, [facility] [address] [id number] [address] [place] [address], [place] [address] Mar, [facility] [address] [id number] [address] [place] [address], [place] [address] Mar, [facility] [address] [id number] [address] [place] [address], [place] [address] Mar, [facility] [address] [id number] [address] [place] [address], [place] [address] Mar, [facility] [address] [id number] [address] [place] [address] Mar, [facility] [address] [id number] [address] [place] [address], [place] [address] Mar, [facility] [address] [id number] [address] [place] [address] Feb, [facility] [address] [id number] [address] [place] [address] Feb, [facility] [address] [id number] [address] [place] [address] Jan, [facility] [address] [id number] [address] [place] [address], [place] [address] Jan, [facility] [address] [id number] [address] [place] [address] Jan, [facility] [address] [id number] [address] [place] [address] Jan, [facility] [address] [id number] [address] [place] [address] Jan, [facility] [address] [id number] [address] [place] [address], [place] [address] Dec, [facility] [address] [id number] [address] [place] [address], [place] [address] Nov, [facility] [address] [id number] [address] [place] [address], [place] [address] Nov, [facility] [address] [id number] [address] [place] [address], [place] [address] Nov, [facility] [address] [id number] [address] [place] [address], [place] [address] Oct, [facility] [address] [id number] [address] [place] [address], [place] [address] Oct, [facility] [address] [id number] [address] [place] [address], [place] [address] Sep, [facility] [address] [id number] [address] [place] [address], [place] [address] Sep, [facility] [address] [id number] [address] [place] [address], [place] [address] August, [facility] [address] [id number] [address] [place] [address], [place] [address] August, [facility] [address] [id number] [address] [place] [address], [place] [address] August, [facility] [address] [id number] [address] [place] [address], [place] [address] August, [facility] [address] [id number] [address] [place] [address], [place] [address] 16 Jul, 2012 [facility] [address] [id number] [address] [place] [address], [place] [address] 15 Jul, 2012 [facility] [address] [id number] [address] [place] [address], [place] [address] Jun, [facility] [address] [id number] [address] [place] [address], [place] [address] 26 May, 2012 [facility] [address] [id number] [address] [place] [address], [place] [address] May, 2012 [facility] [address] [id number] [address] [place] [address], [place] [address] 18 May, 2012 [facility] [address] [id number] [address] [place] [address], [place] [address] 15 May, 2012 [facility] [address] [id number] [address] [place] [address], [place] [address] May, [facility] [address] [id number] [address] [place] [address], [place] [address] May, [facility] [address] [id number] [address] [place] [address], [place] [address] May, [facility] [address] [id number] [address] [place] [address], [place] [address] August, [facility] [address] [id number] [address] [place] [address], [place] [address] Jul, [facility] [address] [id number] [address] [place] [address], [place] [address] Jul, [facility] [address] [id number] [address] [place] [address], [place] [address] May, [facility] [address] [id number] [address] [place] [id number] May, [facility] [address] [id number] [address] [place] [address], [place] [id number] Mar, [facility] [address] [id number] [address] [place] [address], [place] [id number] Sep, [facility] [address] [id number] [address] [place] [id number] 16 Jul, 2009 [facility] [address] [id number] [address] [place] [id number] Mar, [facility] [address] [facility] [id number] [address] [place] [id number] Feb, [facility] [address] [facility] [id number] [address] [place] [id number] Feb, IMMUNIZATIONS No Known Immunizations SOCIAL HISTORY Never Assessed REASON FOR VISIT PLAN OF CARE VITAL SIGNS Blood pressure systolic 110 mmHg 2012-10-17 Blood pressure diastolic 74 mmHg 2012-10-17 MEDICATIONS Unknown Medications RESULTS No Results PROCEDURES [...]
--- OUTSIDE RECORDS SUMMARY | 2019-11-11 02:33 | XMS REPORT ---
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 Plasterer Spot Name Role Phone ONEILJAYE Unavailable PROBLEMS Type Condition ICD9-CM Code ZWD36-EM Code Onset Dates Condition S tatus SNOMED Code Problem Type 2 diabetes mellitus without complications E11 .9 Active 320628983 Problem Essential (primary) hypertension I10 Active 85859904 Problem Type 2 diabetes mellitus with foot ulcer E11.621 Active 116940750 Problem Atherosclerotic heart diseas e of [place] coronary artery without angina pectoris I25.10 Active 626903863431942 Problem Controlled type 2 diabetes m ellitus without complication, without long- term current use of insulin E11.9 Active 148059089 Problem Neuropathy G62.9 Active 606032782 Problem Seasonal allergic rhinitis due to other allergic trigger J30.89 Active 948745699 Problem Bilateral tinnitus H93.13 Active 4 549590481592 Problem Type 2 diabetes mellitus with hyperglycemia E11.65 Active 375211684707062 Problem Type 2 diabetes 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.49 Active 94490882 Problem Observed sleep apnea G47.30 Active 28624799 Problem Other elevated white blood cell (WBC) count D72.82 8 Active 276695339 Problem Tinnitus of both ears H93.13 Active 8036188787196 Problem Hypertension, benign I10 Active 78987538 Problem Tinnitus of left ear H93.12 Active 5742737728764 Problem Elevated white blood cell count, unspecified D72.8 29 Active 243746606 Problem Type 2 diabetes mellitus wit h diabetic neuropathy, without long-term current use of insulin E11.40 Active 10093 006 Problem Cerebrovascular accident (CVA) due to em bolism of other cerebral artery I63.49 Active 822578092 Problem Altered mental status R41.82 Active 899290823 Problem Gastroesophageal reflux disease with esophagitis K 21.0 Active 823689858 ALLERGIES No Information ENCOUNTERS Encounter Location Date Diagnosis [facility] [place] [address] [facility] [id number] [address] [place] [address] August, Type 2 diabetes mellitus wit hout complications E11.9 [facility] [place] [address] [id number] [address] [place] [address] Jul, Essential (primary) hyperten felecia I10 and Type 2 diabetes mellitus without complications E11.9 [facility] [place] [address] [id number] [address] [place] [address] Jun, Type 2 diabetes mellitus wit hout complications E11.9 [facility] [place] [address] [id number] [address] [place] [address] Jun, [facility] [place] [address] [facility] [id number] [place] [address] Jun, Type 2 diabetes mellitus wit hout complications E11.9 [facility] [place] [address] [facility] [id number] [place] [address] Jun, [facility] [place] [address] [id number] [address] [place] [address] May, [facility] [place] [address] [id number] [address] [place] [address] May, Type 2 diabetes mellitus wit hout complications E11.9 [facility] [place] [address] [facility] [id number] [place] [address] Mar, Neuropathy G62.9 [facility] [place] [address] [facility] [id number] [place] [address] Mar, [facility] [place] [address] [facility] [id number] [place] [address] Dec, [facility] [place] [address] [facility] [id number] [place] [address] Nov, Actinic keratoses L57.0 [facility] [place] [address] [facility] [id number] [place] [address] Nov, [facility] [place] [address] [facility] [id number] [place] [address] Nov, Type 2 diabetes mellitus wit hout complications E11.9 [facility] [place] [address] [facility] [id number] [place] [address] Oct, Controlled type 2 diabetes m carrieitus without complication, without long-term current use of insulin E11.9 [facility] [place] [address] [facility] [id number] [place] [address] Oct, [facility] [place] [address] [facility] [id number] [place] [address] Oct, [place] [address] [address] [facility] [id number] [place] [address] Oct, Controlled type 2 diabetes m carrieitus without complication, without long-term current use of insulin E11.9 [place] [address] [place] [id number] [address] [place] [address] Oct, Essential (primary) hyperten felecia I10 ; Type 2 diabetes mellitus without complications E11.9 ; Actinic keratoses L57.0 and Seborrheic keratoses L82.1 [place] [address] [place] [id number] [address] [place] [address] Oct, [place] [address] [place] [id number] [address] [place] [address] Sep, Hypertension, benign I10 and Controlled type 2 diabetes mellitus without complication, without long-term current use of insulin E11.9 [place] [address] [facility] [id number] [place] [address] Sep, Other elevated white blood c ell (WBC) count D72.828 [place] [address] [place] [id number] [address] [place] [address] August, Neuropathy G62.9 [place] [address] [facility] [id number] [place] [address] August, Other elevated white blood c ell (WBC) count D72.828 [place] [address] [address] [facility] [id number] [place] [address] August, Type 2 diabetes mellitus wit h foot ulcer E11.621 [facility] [place] [address] [facility] [id number] [place] [address] Jul, [facility] [place] [address] [facility] [id number] [place] [address] Jul, Neuropathy G62.9 [facility] [place] [address] [facility] [id number] [place] [address] Jun, [facility] [place] [address] [facility] [id number] [place] [address] Jun, Neuropathy G62.9 [facility] [place] [address] [facility] [id number] [place] [address] May, Neuropathy G62.9 [facility] [place] [address] [place] [id number] [address] [place] [address] Mar, Type 2 diabetes mellitus wit hout complications E11.9 [facility] [place] [address] [facility] [id number] [place] [address] Feb, Neuropathy G62.9 [facility] [place] [address] [facility] [id number] [place] [address] Feb, Actinic keratoses L57.0 [place] [address] [address] [facility] [id number] [place] [address] Feb, Type 2 diabetes mellitus wit hout complications E11.9 ; Tobacco abuse Z72.0 ; Tobacco abuse counseling Z71.6 and Atherosclerotic heart disease of [place] coronary artery without angina pectoris I25.10 [facility] [place] [address] [facility] [id number] [place] [address] 08 Feb, 2018 Type 2 diabetes mellitus wit hout complications E11.9 ; Tobacco abuse Z72.0 ; Tobacco abuse counseling Z71.6 ; Atherosclerotic heart disease of [place] coronary artery without angina pectoris I25.10 ; Seborrheic keratoses L82.1 and Gastroesophageal reflux disease with esophagitis K21.0 [facility] [address] [place] [id number] [address] [place] [address] Jan, Abscess L02.91 [place] [address] [place] [id number] [address] [place] [address] 23 Jan, 2018 Neuropathy G62.9 [place] [address] [place] [id number] [address] [place] [address] 20 Dec, 2017 Neuropathy G62.9 ; Cerebrova scular accident (CVA) due to embolism of other cerebral artery I63.49 and Seasonal allergic rhinitis due to other allergic trigger J30.89 [facility] [address] [place] [id number] [place] [address] 10 Dec, 2017 Altered mental status R41.82 [place] [address] [address] 16 Nov, 2017 Type 2 diabetes mellitus wit h diabetic neuropathy, without long- term current use of insulin E11.40 [place] [address] [address] Oct, Neuropathy G62.9 ; Type 2 di abetes mellitus with other diabetic neurological complication E11.49 ; Type 2 diabetes mellitus with hyperglycemia E11.65 ; Actinic keratoses L57.0 and Observed sleep apnea G47.30 [place] [address] [address] Sep, Tinnitus of both ears H93.13 and Actinic keratitis, unspecified laterality H16.139 [place] [address] [place] [id number] [place] [address] August, Type 2 diabetes mellitus wit hout complications E11.9 and Controlled type 2 diabetes mellitus without complication, without long-term current use of insulin E11.9 [place] [address] [place] [id number] [address] [place] [address] August, Seborrheic keratoses L82.1 a nd Tinnitus of left ear H93.12 [place] [address] [place] [id number] [address] [place] [address] Jul, Controlled type 2 diabetes m ellitus without complication, without long-term current use of insulin E11.9 ; Seborrheic keratoses L82.1 ; Bilateral tinnitus H93.13 and Seasonal allergic rhinitis due to other allergic trigger J30.89 [facility] [address] [id number] [address] [place] [id number] May, Encounter for dental examina tion Z01.20 [facility] [address] [facility] [id number] [place] [address] [id number] Jan, Encounter for dental examina tion Z01.20 [facility] [place] [address] [place] [id number] [address] [place] [address] Jan, Type 2 diabetes mellitus wit hout complications E11.9 and Acute non- recurrent maxillary sinusitis J01.00 [facility] [address] [facility] [id number] [place] [address] Dec, Right ear impacted cerumen H 61.21 and Acute suppurative otitis media of right ear without spontaneous rupture of tympanic membrane, recurrence not specified H66.001 [facility] [place] [address] [place] [id number] [address] [place] [address] Nov, Type 2 diabetes mellitus wit hout complications E11.9 and Neuropathy G62.9 [facility] [address] [facility] [id number] [address] [place] [address] [id number] Oct, Encounter for dental examina tion Z01.20 [facility] [address] [id number] [address] [place] [address] [id number] Jun, Dental examination Z01.20 [facility] [place] [address] [facility] [id number] [place] [id number] Jun, Atherosclerotic heart diseas e of [place] coronary artery without angina pectoris I25.10 [facility] [place] [address] [facility] [id number] [place] [address] Jun, Atherosclerotic heart diseas e of [place] coronary artery without angina pectoris I25.10 [facility] [place] [address] [place] [id number] [address] [place] [address] Jun, Type 2 diabetes mellitus wit hout complications E11.9 [facility] [address] [place] [id number] [address] [place] [address] [id number] 28 May, 2016 Encounter for dental examina tion Z01.20 [facility] [address] [place] [id number] Apr, Dental caries K02.9 [facility] [address] [place] [id number] [place] [address] [id number] Apr, Dental examination Z01.20 [place] [address] [address] 08 Dec, 2015 Type 2 diabetes mellitus wit hout complications E11.9 ; 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 ; Essential (primary) hypertension I10 and Elevated white blood cell count, unspecified D72.829 [facility] [place] [address] [address] Jul, Diabetes mellitus without me ntion of complication, type II or unspecified type, not stated as uncontrolled 250.00 [facility] [place] [address] [address] Jul, [place] [address] [address] Jan, Encounter for immunization Z 23 [facility] [address] [place] [id number] [place] [address] [id number] Dec, Dental examination V72.2 [place] [address] [id number] Nov, Cancer of lung, upper lobe 1 62.3 [place] [address] [address] Sep, Lung cancer 162.9 ; CAD (cor onary artery disease) 414.00 and Depression 311 [place] [address] [id number] [address] [place] [address], [place] [address] 14 Jul, 2014 [facility] [address] [id number] [address] [place] [address], [place] [address] 13 Jul, 2014 [facility] [address] [id number] [address] [place] [address], [place] [address] 20 Jun, 2014 [facility] [address] [id number] [address] [place] [address], [place] [address] Jun, [facility] [address] [id number] [address] [place] [address], [place] [address] Mar, [facility] [address] [id number] [address] [place] [address], [place] [address] Mar, [facility] [address] [id number] [address] [place] [address], [place] [address] Jan, [facility] [address] [id number] [address] [place] [address], [place] [address] Jan, [facility] [address] [id number] [address] [place] [address], [place] [address] Jan, [facility] [address] [id number] [address] [place] [address], [place] [address] Jan, [facility] [address] [id number] [address] [place] [address], [place] [address] Jan, [facility] [address] [id number] [address] [place] [address], [place] [address] Jan, [facility] [address] [id number] [address] [place] [address], [place] [address] Dec, [facility] [address] [id number] [address] [place] [address], [place] [address] Dec, [facility] [address] [id number] [address] [place] [address], [place] [address] Oct, [facility] [address] [id number] [address] [place] [address], [place] [address] Oct, [facility] [address] [id number] [facility] [place] [address] Sep, [facility] [address] [id number] [address] [place] [address], [place] [address] Sep, [facility] [address] [id number] [address] [place] [address], [place] [address] August, [facility] [address] [id number] [address] [place] [address], [place] [address] August, [facility] [address] [id number] [address] [place] [address], [place] [address] August, [facility] [address] [id number] [address] [place] [address], [place] [address] August, [facility] [address] [id number] [address] [place] [address], [place] [address] August, [facility] [address] [id number] [address] [place] [address], [place] [address] August, [facility] [address] [id number] [address] [place] [address], [place] [address] Jun, [facility] [address] [id number] [address] [place] [address], [place] [address] Jun, [facility] [address] [id number] [address] [place] [address], [place] [address] May, [facility] [address] [id number] [address] [place] [address], [place] [address] May, [facility] [address] [id number] [address] [place] [address], [place] [address] May, [facility] [address] [id number] [address] [place] [address], [place] [address] May, [facility] [address] [id number] [address] [place] [address], [place] [address] Apr, [facility] [address] [id number] [address] [place] [address], [place] [address] Apr, [facility] [place] [address] [id number] [address] [place] [address], [place] [address] Mar, [facility] [address] [id number] [address] [place] [address], [place] [address] Mar, [facility] [address] [id number] [address] [place] [address], [place] [address] Mar, [facility] [address] [id number] [address] [place] [address], [place] [address] Mar, [facility] [address] [id number] [address] [place] [address], [place] [address] Mar, [facility] [place] [address] [id number] [address] [place] [address], [place] [address] Mar, [facility] [place] [address] [id number] [address] [place] [address], [place] [address] Mar, [facility] [address] [id number] [address] [place] [address], [place] [address] Mar, [facility] [place] [address] [id number] [address] [place] [address], [place] [address] Mar, [facility] [address] [id number] [address] [place] [address], [place] [address] Feb, [facility] [place] [address] [id number] [address] [place] [address], [place] [address] Feb, [facility] [address] [id number] [address] [place] [address], [place] [address] Jan, [facility] [address] [id number] [address] [place] [address], [place] [address] Jan, [facility] [address] [id number] [address] [place] [address], [place] [address] Jan, [facility] [address] [id number] [address] [place] [address], [place] [address] Jan, [facility] [address] [id number] [address] [place] [address], [place] [address] Jan, [facility] [address] [id number] [address] [place] [address], [place] [address] Dec, [facility] [address] [id number] [address] [place] [address], [place] [address] Nov, [facility] [address] [id number] [address] [place] [address], [place] [address] Nov, [facility] [address] [id number] [address] [place] [address], [place] [address] Nov, [facility] [address] [id number] [address] [place] [address], [place] [address] Oct, [facility] [address] [id number] [address] [place] [address], [place] [address] Oct, [facility] [address] [id number] [address] [place] [address], [place] [address] Sep, [facility] [address] [id number] [address] [place] [address], [place] [address] Sep, [facility] [address] [id number] [address] [place] [address], [place] [address] August, [facility] [address] [id number] [address] [place] [address], [place] [address] August, [facility] [address] [id number] [address] [place] [address], [place] [address] August, [facility] [address] [id number] [address] [place] [address], [place] [address] August, [facility] [address] [id number] [address] [place] [address], [place] [address] 16 Jul, 2012 [facility] [address] [id number] [address] [place] [address], [place] [address] Jul, [facility] [address] [id number] [address] [place] [address] [place] [address] 13 Jun, 2012 [facility] [place] [address] [id number] [address] [place] [address], [place] [address] 26 May, 2012 [facility] [address] [id number] [address] [place] [address], [place] [address] May, [facility] [address] [id number] [address] [place] [address], [place] [address] 18 May, 2012 [facility] [address] [id number] [address] [place] [address], [place] [address] 15 May, 2012 [facility] [address] [id number] [address] [place] [address], [place] [address] May, [facility] [address] [id number] [address] [place] [address], [place] [address] May, [facility] [address] [id number] [address] [place] [address], [place] [address] May, [facility] [address] [id number] [address] [place] [address], [place] [address] August, [facility] [place] [address] [id number] [address] [place] [address], [place] [address] 23 Jul, 2011 [facility] [address] [id number] [address] [place] [address], [place] [address] Jul, [facility] [place] [address] [id number] [address] [place] [address], [place] [address] May, [facility] [address] [id number] [address] [place] [address], [place] [address] May, [facility] [address] [id number] [address] [place] [address], [place] [address] Mar, [facility] [address] [id number] [address] [place] [address], [place] [address] Sep, [facility] [address] [id number] [address] [place] [address], [place] [address] Jul, [facility] [place] [address] [facility] [id number] [place] [address] Mar, [facility] [place] [address] [facility] [id number] [place] [address] Feb, [facility] [place] [address] [facility] [id number] [place] [address] Feb, IMMUNIZATIONS No Known Immunizations SOCIAL HISTORY [...]
--- OUTSIDE RECORDS SUMMARY | 2019-11-11 02:33 | XMS REPORT ---
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 Name Role Phone ONEILJAYE Unavailable PROBLEMS Type Condition ICD9-CM Code [id number] Code Onset Dates Condition S tatus SNOMED Code Problem Type 2 diabetes mellitus without complications E11 .9 Active 060659504 Problem Essential (primary) hypertension I10 Active 01139971 Problem Type 2 diabetes mellitus with foot ulcer E11.621 Active 512615682 Problem Atherosclerotic heart diseas e of [place] coronary artery without angina pectoris I25.10 Active [id number] Problem Controlled type 2 diabetes m ellitus without complication, without long- term current use of insulin E11.9 Active 544465812 Problem Neuropathy G62.9 Active 993396138 Problem Seasonal allergic rhinitis due to other allergic trigger J30.89 Active 611526542 Problem Bilateral tinnitus H93.13 Active 4 787909200601 Problem Type 2 diabetes mellitus with hyperglycemia E11.65 Active 134564344564773 Problem Type 2 diabetes 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.49 Active 59120327 Problem Observed sleep apnea G47.30 Active 00651228 Problem Other elevated white blood cell (WBC) count D72.82 8 Active 419619229 Problem Tinnitus of both ears H93.13 Active 3961620199258 Problem Hypertension, benign I10 Active 13740144 Problem Tinnitus of left ear H93.12 Active 1471050545777 Problem Elevated white blood cell count, unspecified D72.8 29 Active 584894753 Problem Type 2 diabetes mellitus wit h diabetic neuropathy, without long-term current use of insulin E11.40 Active 09151 006 Problem Cerebrovascular accident (CVA) due to em bolism of other cerebral artery I63.49 Active 269138137 Problem Altered mental status R41.82 Active 375230258 Problem Gastroesophageal reflux disease with esophagitis K 21.0 Active [id number] ALLERGIES No Information ENCOUNTERS Encounter Location Date Diagnosis [facility] [address] [facility] [id number] [address] [place] [address] August, Type 2 diabetes mellitus wit hout complications E11.9 [facility] [address] [id number] [address] [place] [address] Jul, Essential (primary) hyperten felecia I10 and Type 2 diabetes mellitus without complications E11.9 [facility] [address] [id number] [address] [place] [address] Jun, Type 2 diabetes mellitus wit hout complications E11.9 [facility] [address] [id number] [address] [place] [address] Jun, [facility] [address] [facility] [id number] [address] [place] [address] Jun, Type 2 diabetes mellitus wit hout complications E11.9 [facility] [address] [facility] [id number] [address] [place] [address] Jun, [facility] [address] [id number] [address] [place] [address] May, [facility] [address] [id number] [address] [place] [address] May, Type 2 diabetes mellitus wit hout complications E11.9 [facility] [address] [facility] [id number] [address] [place] [address] Mar, Neuropathy G62.9 [facility] [address] [facility] [id number] [address] [place] [address] Mar, [facility] [address] [facility] [id number] [address] [place] [address] Dec, [facility] [address] [facility] [id number] [address] [place] [address] Nov, Actinic keratoses L57.0 [facility] [address] [facility] [id number] [address] [place] [address] Nov, [facility] [address] [facility] [id number] [address] [place] [address] Nov, Type 2 diabetes mellitus wit hout complications E11.9 [facility] [address] [facility] [id number] [address] [place] [address] Oct, Controlled type 2 diabetes m carrieitus without complication, without long-term current use of insulin E11.9 [facility] [address] [facility] [id number] [address] [place] [address] Oct, [facility] [address] [facility] [id number] [address] [place] [address] Oct, [place] [address] [facility] [id number] [address] [place] [address] Oct, Controlled type 2 diabetes m carrieitus without complication, without long-term current use of insulin E11.9 [place] [address] [place] [id number] [address] [place] [address] Oct, Essential (primary) hyperten felecia I10 ; Type 2 diabetes mellitus without complications E11.9 ; Actinic keratoses L57.0 and Seborrheic keratoses L82.1 [place] [address] [place] [id number] [address] [place] [address] Oct, [place] [address] [place] [id number] [address] [place] [address] Sep, Hypertension, benign I10 and Controlled type 2 diabetes mellitus without complication, without long-term current use of insulin E11.9 [place] [address] [facility] [id number] [address] [place] [address] Sep, Other elevated white blood c ell (WBC) count D72.828 [place] [address] [place] [id number] [address] [place] [address] August, Neuropathy G62.9 [place] [address] [facility] [id number] [address] [place] [address] August, Other elevated white blood c ell (WBC) count D72.828 [place] [address] [facility] [id number] [address] [place] [address] August, Type 2 diabetes mellitus wit h foot ulcer E11.621 [facility] [address] [facility] [id number] [address] [place] [address] Jul, [facility] [address] [facility] [id number] [address] [place] [address] Jul, Neuropathy G62.9 [facility] [address] [facility] [id number] [address] [place] [address] Jun, [facility] [address] [facility] [id number] [address] [place] [address] Jun, Neuropathy G62.9 [facility] [address] [facility] [id number] [address] [place] [address] May, Neuropathy G62.9 [facility] [address] [place] [id number] [address] [place] [address] Mar, Type 2 diabetes mellitus wit hout complications E11.9 [facility] [address] [facility] [id number] [address] [place] [address] Feb, Neuropathy G62.9 [facility] [address] [facility] [id number] [address] [place] [address] Feb, Actinic keratoses L57.0 [place] [address] [facility] [id number] [address] [place] [address] Feb, Type 2 diabetes mellitus wit hout complications E11.9 ; Tobacco abuse Z72.0 ; Tobacco abuse counseling Z71.6 and Atherosclerotic heart disease of [place] coronary artery without angina pectoris I25.10 [facility] [address] [facility] [id number] [address] [place] [address] 08 Feb, 2018 Type 2 diabetes mellitus wit hout complications E11.9 ; Tobacco abuse Z72.0 ; Tobacco abuse counseling Z71.6 ; Atherosclerotic heart disease of [place] coronary artery without angina pectoris I25.10 ; Seborrheic keratoses L82.1 and Gastroesophageal reflux disease with esophagitis K21.0 [facility] [address] [place] [id number] [address] [place] [address] Jan, Abscess L02.91 [place] [address] [place] [id number] [address] [place] [address] 23 Jan, 2018 Neuropathy G62.9 [place] [address] [place] [id number] [address] [place] [address] 20 Dec, 2017 Neuropathy G62.9 ; Cerebrova scular accident (CVA) due to embolism of other cerebral artery I63.49 and Seasonal allergic rhinitis due to other allergic trigger J30.89 [facility] [address] [place] [id number] [place] [address] 10 Dec, 2017 Altered mental status R41.82 [place] [address] [address] 16 Nov, 2017 Type 2 diabetes mellitus wit h diabetic neuropathy, without long- term current use of insulin E11.40 [place] [address] [address] Oct, Neuropathy G62.9 ; Type 2 di abetes mellitus with other diabetic neurological complication E11.49 ; Type 2 diabetes mellitus with hyperglycemia E11.65 ; Actinic keratoses L57.0 and Observed sleep apnea G47.30 [place] [address] [address] Sep, Tinnitus of both ears H93.13 and Actinic keratitis, unspecified laterality H16.139 [place] [address] [place] [id number] [place] [address] August, Type 2 diabetes mellitus wit hout complications E11.9 and Controlled type 2 diabetes mellitus without complication, without long-term current use of insulin E11.9 [place] [address] [place] [id number] [address] [place] [address] August, Seborrheic keratoses L82.1 a nd Tinnitus of left ear H93.12 [place] [address] [place] [id number] [address] [place] [address] Jul, Controlled type 2 diabetes m ellitus without complication, without long-term current use of insulin E11.9 ; Seborrheic keratoses L82.1 ; Bilateral tinnitus H93.13 and Seasonal allergic rhinitis due to other allergic trigger J30.89 [facility] [address] [id number] [address] [place] [address] [id number] May, Encounter for dental examina tion Z01.20 [facility] [address] [facility] [id number] [place] [id number] Jan, Encounter for dental examina tion Z01.20 [facility] [address] [place] [id number] [address] [place] [address] Jan, Type 2 diabetes mellitus wit hout complications E11.9 and Acute non- recurrent maxillary sinusitis J01.00 [facility] [address] [facility] [id number] [address] [place] [address] Dec, Right ear impacted cerumen H 61.21 and Acute suppurative otitis media of right ear without spontaneous rupture of tympanic membrane, recurrence not specified H66.001 [facility] [address] [place] [id number] [address] [place] [address] Nov, Type 2 diabetes mellitus wit hout complications E11.9 and Neuropathy G62.9 [facility] [address] [facility] [id number] [address] [place] [id number] Oct, Encounter for dental examina tion Z01.20 [facility] [address] [id number] [address] [place] [address] [id number] Jun, Dental examination Z01.20 [facility] [address] [facility] [id number] [address] [place] [address] Jun, Atherosclerotic heart diseas e of [place] coronary artery without angina pectoris I25.10 [facility] [address] [facility] [id number] [address] [place] [address] Jun, Atherosclerotic heart diseas e of [place] coronary artery without angina pectoris I25.10 [facility] [address] [place] [id number] [address] [place] [address] Jun, Type 2 diabetes mellitus wit hout complications E11.9 [facility] [address] [place] [id number] [address] [place] [id number] 28 May, 2016 Encounter for dental examina tion Z01.20 [facility] [address] [place] [address] [id number] Apr, Dental caries K02.9 [facility] [address] [place] [id number] [place] [address] [id number] Apr, Dental examination Z01.20 [place] [address] [address] 08 Dec, 2015 Type 2 diabetes mellitus wit hout complications E11.9 ; 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 ; Essential (primary) hypertension I10 and Elevated white blood cell count, unspecified D72.829 [facility] [address] [address] Jul, Diabetes mellitus without me ntion of complication, type II or unspecified type, not stated as uncontrolled 250.00 [facility] [address] [address] Jul, [place] [address] [address] Jan, Encounter for immunization Z 23 [facility] [address] [place] [id number] [place] [address] [id number] Dec, Dental examination V72.2 [place] [address] [address] Nov, Cancer of lung, upper lobe 1 62.3 [place] [address] [address] Sep, Lung cancer 162.9 ; CAD (cor onary artery disease) 414.00 and Depression 311 [place] [address] [id number] [address] [place] [address], [place] [address] 14 Jul, 2014 [facility] [address] [id number] [address] [place] [address], [place] [address] 13 Jul, 2014 [facility] [address] [id number] [address] [place] [address], [place] [address] 20 Jun, 2014 [facility] [address] [id number] [address] [place] [address], [place] [address] Jun, [facility] [address] [id number] [address] [place] [address], [place] [address] Mar, [facility] [address] [id number] [address] [place] [address], [place] [address] Mar, [facility] [address] [id number] [address] [place] [address], [place] [address] Jan, [facility] [address] [id number] [address] [place] [address], [place] [address] Jan, [facility] [address] [id number] [address] [place] [address], [place] [address] Jan, [facility] [address] [id number] [address] [place] [address], [place] [address] Jan, [facility] [address] [id number] [address] [place] [address], [place] [address] Jan, [facility] [address] [id number] [address] [place] [address], [place] [address] Jan, [facility] [address] [id number] [address] [place] [address], [place] [address] Dec, [facility] [address] [id number] [address] [place] [address], [place] [address] Dec, [facility] [address] [id number] [address] [place] [address], [place] [address] Oct, [facility] [address] [id number] [address] [place] [address], [place] [address] Oct, [facility] [address] [id number] [facility] [place] [address] Sep, [facility] [address] [id number] [address] [place] [address], [place] [address] Sep, [facility] [address] [id number] [address] [place] [address], [place] [address] August, [facility] [address] [id number] [address] [place] [address], [place] [address] August, [facility] [address] [id number] [address] [place] [address], [place] [address] August, [facility] [address] [id number] [address] [place] [address], [place] [address] August, [facility] [address] [id number] [address] [place] [address], [place] [address] August, [facility] [address] [id number] [address] [place] [address], [place] [address] August, [facility] [address] [id number] [address] [place] [address], [place] [address] Jun, [facility] [address] [id number] [address] [place] [address], [place] [address] Jun, [facility] [address] [id number] [address] [place] [address], [place] [address] May, [facility] [address] [id number] [address] [place] [address], [place] [address] May, [facility] [address] [id number] [address] [place] [address], [place] [address] May, [facility] [address] [id number] [address] [place] [address], [place] [address] May, [facility] [address] [id number] [address] [place] [address], [place] [address] Apr, [facility] [address] [id number] [address] [place] [address], [place] [address] Apr, [facility] [address] [id number] [address] [place] [address], [place] [address] Mar, [facility] [address] [id number] [address] [place] [address], [place] [address] Mar, [facility] [address] [id number] [address] [place] [address], [place] [address] Mar, [facility] [address] [id number] [address] [place] [address], [place] [address] Mar, [facility] [address] [id number] [address] [place] [address], [place] [address] Mar, [facility] [address] [id number] [address] [place] [address], [place] [address] Mar, [facility] [address] [id number] [address] [place] [address], [place] [address] Mar, [facility] [address] [id number] [address] [place] [address], [place] [address] Mar, [facility] [address] [id number] [address] [place] [address], [place] [address] Mar, [facility] [address] [id number] [address] [place] [address], [place] [address] Feb, [facility] [address] [id number] [address] [place] [address], [place] [address] Feb, [facility] [address] [id number] [address] [place] [address], [place] [address] Jan, [facility] [address] [id number] [address] [place] [address], [place] [address] Jan, [facility] [address] [id number] [address] [place] [address], [place] [address] Jan, [facility] [address] [id number] [address] [place] [address], [place] [address] Jan, [facility] [address] [id number] [address] [place] [address], [place] [address] Jan, [facility] [address] [id number] [address] [place] [address], [place] [address] Dec, [facility] [address] [id number] [address] [place] [address], [place] [address] Nov, [facility] [address] [id number] [address] [place] [address], [place] [address] Nov, [facility] [address] [id number] [address] [place] [address], [place] [address] Nov, [facility] [address] [id number] [address] [place] [address], [place] [address] Oct, [facility] [address] [id number] [address] [place] [address], [place] [address] Oct, [facility] [address] [id number] [address] [place] [address], [place] [address] Sep, [facility] [address] [id number] [address] [place] [address], [place] [address] Sep, [facility] [address] [id number] [address] [place] [address], [place] [address] August, [facility] [address] [id number] [address] [place] [address], [place] [address] August, [facility] [address] [id number] [address] [place] [address], [place] [address] August, [facility] [address] [id number] [address] [place] [address], [place] [address] August, [facility] [address] [id number] [address] [place] [address], [place] [address] 16 Jul, 2012 [facility] [address] [id number] [address] [place] [address], [place] [address] Jul, [facility] [address] [id number] [address] [place] [address] [place] [address] 13 Jun, 2012 [facility] [address] [id number] [address] [place] [address], [place] [address] 26 May, 2012 [facility] [address] [id number] [address] [place] [address], [place] [address] May, [facility] [address] [id number] [address] [place] [address], [place] [address] 18 May, 2012 [facility] [address] [id number] [address] [place] [address], [place] [address] 15 May, 2012 [facility] [address] [id number] [address] [place] [address], [place] [address] May, [facility] [address] [id number] [address] [place] [address], [place] [address] May, [facility] [address] [id number] [address] [place] [address], [place] [address] May, [facility] [address] [id number] [address] [place] [address], [place] [address] August, [facility] [address] [id number] [address] [place] [address], [place] [address] 23 Jul, 2011 [facility] [address] [id number] [address] [place] [address], [place] [address] Jul, [facility] [address] [id number] [address] [place] [address], [place] [address] May, [facility] [address] [id number] [address] [place] [address], [place] [address] May, [facility] [address] [id number] [address] [place] [address], [place] [address] Mar, [facility] [address] [id number] [address] [place] [address], [place] [address] Sep, [facility] [address] [id number] [address] [place] [address], [place] [address] Jul, [facility] [address] [facility] [id number] [address] [place] [address] Mar, [facility] [address] [facility] [id number] [address] [place] [address] Feb, [facility] [address] [facility] [id number] [address] [place] [address] Feb, IMMUNIZATIONS No Known Immunizations SOCIAL HISTORY Never Assessed REASON FOR VISIT PLAN OF CARE VITAL SIGNS Height 71 in 2012-11-29 Weight 241.8 lbs 2012-11-29 Temperature 97.6 degrees Fahrenheit 2012-11-29 Heart Rate 76 bpm 2012-11-29 Respiratory Rate 20 2012-11-29 Blood pressure systolic 116 mmHg 2012-11-29 Blood pressure diastolic 74 mmHg 2012-11-29 MEDICATIONS Unknown Medications RESULTS No Results PROCEDURES Procedure Date Ordered Result Body Site GLYCATED HEMOGLOBIN TEST Nov 29, 2012 INSTRUCTIONS MEDICATIONS ADMINISTERED No Known Medications [...]
--- OUTSIDE RECORDS SUMMARY | 2019-11-11 02:33 | XMS REPORT ---
Author Author Teddy RIGGS Organization [facility] Address [address] [place] [address] Care Team Providers Care Pedigree Researcher Name Role Phone ONEILJAYE Unavailable PROBLEMS Type Condition ICD9-CM Code HJA44-DA Code Onset Dates Condition S tatus SNOMED Code Problem Type 2 diabetes mellitus without complications E11 .9 Active 274434129 Problem Essential (primary) hypertension I10 Active 06891913 Problem Type 2 diabetes mellitus with foot ulcer E11.621 Active 685939293 Problem Atherosclerotic heart diseas e of [place] coronary artery without angina pectoris I25.10 Active 656351241226624 Problem Controlled type 2 diabetes m ellitus without complication, without long- term current use of insulin E11.9 Active 595775852 Problem Neuropathy G62.9 Active 257998577 Problem Seasonal allergic rhinitis due to other allergic trigger J30.89 Active 749635166 Problem Bilateral tinnitus H93.13 Active 4 391328907787 Problem Type 2 diabetes mellitus with hyperglycemia E11.65 Active 438520951264108 Problem Type 2 diabetes 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.49 Active 41411835 Problem Observed sleep apnea G47.30 Active 59470775 Problem Other elevated white blood cell (WBC) count D72.82 8 Active 352244933 Problem Tinnitus of both ears H93.13 Active 9222648372534 Problem Hypertension, benign I10 Active 82411430 Problem Tinnitus of left ear H93.12 Active 3550279955679 Problem Elevated white blood cell count, unspecified D72.8 29 Active 436224910 Problem Type 2 diabetes mellitus wit h diabetic neuropathy, without long-term current use of insulin E11.40 Active 50960 006 Problem Cerebrovascular accident (CVA) due to em bolism of other cerebral artery I63.49 Active 310607344 Problem Altered mental status R41.82 Active 823254225 Problem Gastroesophageal reflux disease with esophagitis K 21.0 Active 119823827 ALLERGIES No Information ENCOUNTERS Encounter Location Date Diagnosis [facility] [address] [facility] [id number] [address] [place] [phone] Jul, [facility] [address] [id number] [address] [place] [phone] Jun, Type 2 diabetes mellitus wit hout complications E11.9 [facility] [address] [id number] [address] [place] [phone] Jun, [facility] [address] [id number] [address] [place] [phone] Jun, Type 2 diabetes mellitus wit hout complications E11.9 [facility] [address] [id number] [address] [place] [phone] Jun, [facility] [address] [id number] [address] [place] [phone] May, [facility] [address] [id number] [address] [place] [address] May, Type 2 diabetes mellitus wit hout complications E11.9 [facility] [address] [id number] [address] [place] [phone] Mar, Neuropathy G62.9 [facility] [address] [id number] [address] [place] [phone] Mar, [facility] [address] [id number] [address] [place] [phone] Dec, [facility] [address] [id number] [address] [place] [address] Nov, Actinic keratoses L57.0 [facility] [address] [id number] [address] [place] [phone] Nov, [facility] [address] [facility] [id number] [address] [place] [address] Nov, Type 2 diabetes mellitus wit hout complications E11.9 [facility] [address] [id number] [address] [place] [phone] Oct, Controlled type 2 diabetes m ellitus without complication, without long-term current use of insulin E11.9 [facility] [address] [id number] [address] [place] [phone] Oct, [facility] [address] [id number] [address] [place] [phone] Oct, [facility] [address] [id number] [address] [place] [phone] Oct, Controlled type 2 diabetes m ellitus without complication, without long-term current use of insulin E11.9 [place] [address] [id number] [address] [place] [address] Oct, Essential (primary) hyperten felecia I10 ; Type 2 diabetes mellitus without complications E11.9 ; Actinic keratoses L57.0 and Seborrheic keratoses L82.1 [place] [address] [address] [facility] [id number] [address] [place] [phone] Oct, [place] [address] [id number] [address] [place] [address] Sep, Hypertension, benign I10 and Controlled type 2 diabetes mellitus without complication, without long-term current use of insulin E11.9 [place] [address] [facility] [id number] [address] [place] [phone] Sep, Other elevated white blood c ell (WBC) count D72.828 [place] [address] [address] [facility] [id number] [address] [place] [address] August, Neuropathy G62.9 [place] [address] [id number] [address] [place] [address] August, Other elevated white blood c ell (WBC) count D72.828 [place] [address] [address] [facility] [id number] [address] [place] [address] August, Type 2 diabetes mellitus wit h foot ulcer E11.621 [place] [address] [id number] [address] [place] [address] Jul, [facility] [address] [facility] [id number] [address] [place] [address] Jul, Neuropathy G62.9 [facility] [address] [facility] [id number] [address] [place] [phone] Jun, [facility] [address] [facility] [id number] [address] [place] [address] Jun, Neuropathy G62.9 [facility] [address] [facility] [id number] [address] [place] [address] May, Neuropathy G62.9 [facility] [address] [place] [id number] [place] [phone] Mar, Type 2 diabetes mellitus wit hout complications E11.9 [facility] [address] [place] [id number] [address] [place] [address] Feb, Neuropathy G62.9 [facility] [address] [place] [id number] [address] [place] [phone] Feb, Actinic keratoses L57.0 [facility] [address] [place] [id number] [address] [place] [address] 09 Feb, 2018 Type 2 diabetes mellitus wit hout complications E11.9 ; Tobacco abuse Z72.0 ; Tobacco abuse counseling Z71.6 and Atherosclerotic heart disease of [place] coronary artery without angina pectoris I25.10 [facility] [address] [place] [id number] [address] [place] [phone] Feb, Type 2 diabetes mellitus wit hout complications E11.9 ; Tobacco abuse Z72.0 ; Tobacco abuse counseling Z71.6 ; Atherosclerotic heart disease of [place] coronary artery without angina pectoris I25.10 ; Seborrheic keratoses L82.1 and Gastroesophageal reflux disease with esophagitis K21.0 [facility] [address] [facility] [id number] [address] [place] [address] Jan, Abscess L02.91 [facility] [address] [place] [id number] [place] [address] Jan, Neuropathy G62.9 [place] [address] [address] [place] [id number] [address] [place] [phone] 20 Dec, 2017 Neuropathy G62.9 ; Cerebrova scular accident (CVA) due to embolism of other cerebral artery I63.49 and Seasonal allergic rhinitis due to other allergic trigger J30.89 [facility] [address] [place] [id number] [place] [address] 10 Dec, 2017 Altered mental status R41.82 [place] [address] [id number] 16 Nov, 2017 Type 2 diabetes mellitus wit h diabetic neuropathy, without long- term current use of insulin E11.40 [place] [address] [id number] 17 Oct, 2017 Neuropathy G62.9 ; Type 2 di abetes mellitus with other diabetic neurological complication E11.49 ; Type 2 diabetes mellitus with hyperglycemia E11.65 ; Actinic keratoses L57.0 and Observed sleep apnea G47.30 [place] [address] [address] Sep, Tinnitus of both ears H93.13 and Actinic keratitis, unspecified laterality H16.139 [place] [address] [address] August, Type 2 diabetes mellitus wit hout complications E11.9 and Controlled type 2 diabetes mellitus without complication, without long-term current use of insulin E11.9 [place] [address] [phone] August, Seborrheic keratoses L82.1 a nd Tinnitus of left ear H93.12 [place] [address] [address] [place] [id number] [place] [address] Jul, Controlled type 2 diabetes m ellitus without complication, without long-term current use of insulin E11.9 ; Seborrheic keratoses L82.1 ; Bilateral tinnitus H93.13 and Seasonal allergic rhinitis due to other allergic trigger J30.89 [facility] [address] [id number] [address] [place] [id number] May, Encounter for dental examina tion Z01.20 [facility] [address] [id number] [address] [place] [id number] Jan, Encounter for dental examina tion Z01.20 [facility] [address] [id number] [address] [place] [phone] Jan, Type 2 diabetes mellitus wit hout complications E11.9 and Acute non- recurrent maxillary sinusitis J01.00 [facility] [address] [facility] [id number] [address] [place] [phone] Dec, Right ear impacted cerumen H 61.21 and Acute suppurative otitis media of right ear without spontaneous rupture of tympanic membrane, recurrence not specified H66.001 [facility] [address] [facility] [id number] [address] [place] [phone] Nov, Type 2 diabetes mellitus wit hout complications E11.9 and Neuropathy G62.9 [facility] [address] [id number] [address] [place] [id number] Oct, Encounter for dental examina tion Z01.20 [facility] [address] [id number] [address] [place] [address] [id number] Jun, Dental examination Z01.20 [facility] [address] [id number] [address] [place] [phone] 16 Jun, 2016 Atherosclerotic heart diseas e of [place] coronary artery without angina pectoris I25.10 [facility] [address] [id number] [address] [place] [phone] 15 Jun, 2016 Atherosclerotic heart diseas e of [place] coronary artery without angina pectoris I25.10 [facility] [address] [id number] [address] [place] [phone] Jun, Type 2 diabetes mellitus wit hout complications E11.9 [facility] [address] [place] [id number] [address] [place] [id number] May, 2016 Encounter for dental examina tion Z01.20 [facility] [address] [place] [id number] [address] [place] [address] [id number] Apr, Dental caries K02.9 [facility] [address] [place] [id number] [address] [place] [address] [id number] Apr, Dental examination Z01.20 [facility] [address] [id number] 08 Dec, 2015 Type 2 diabetes mellitus wit hout complications E11.9 ; half-way current use of insulin Z79.4 ; Essential (primary) hypertension I10 and Elevated white blood cell count, unspecified D72.829 [place] [address] [id number] 29 Jul, 2015 Diabetes mellitus without me ntion of complication, type II or unspecified type, not stated as uncontrolled 250.00 [facility] [address] [id number] Jul, [facility] [address] [id number] Jan, Encounter for immunization Z 23 [facility] [address] [place] [id number] [address] [place] [address] [id number] Dec, Dental examination V72.2 [place] [address] [address] Nov, Cancer of lung, upper lobe 1 62.3 [place] [address] [id number] Sep, Lung cancer 162.9 ; CAD (cor onary artery disease) 414.00 and Depression 311 [facility] [address] [id number] Jul, [place] [address] [address] Jul, [facility] [address] [id number] [address] [place] [address], [place] [address] Jun, [facility] [address] [id number] [address] [place] [address], [place] [phone] Jun, [facility] [address] [id number] [address] [place] [address], [place] [id number] Mar, [facility] [address] [id number] [address] [place] [address], [place] [address] Mar, [facility] [address] [id number] [address] [place] [address], [place] [address] Jan, [facility] [address] [id number] [address] [place] [address], [place] [id number] Jan, [facility] [address] [id number] [address] [place] [address], [place] [id number] Jan, [facility] [address] [id number] [address] [place] [address], [place] [address] Jan, [facility] [address] [id number] [address] [place] [address], [place] [address] Jan, [facility] [address] [id number] [address] [place] [address], [place] [address] Jan, [facility] [address] [id number] [address] [place] [address], [place] [address] Dec, [facility] [address] [id number] [address] [place] [address], [place] [address] Dec, [facility] [address] [id number] [address] [place] [address], [place] [address] Oct, [facility] [address] [id number] [address] [place] [address], [place] [address] Oct, [facility] [address] [id number] [address] [place] [address], [place] [address] Sep, [facility] [address] [id number] [address] [place] [address], [place] [address] Sep, [facility] [address] [id number] [address] [place] [address], [place] [address] August, [facility] [address] [id number] [address] [place] [address], [place] [address] August, [facility] [address] [id number] [address] [place] [address], [place] [address] August, [facility] [address] [id number] [address] [place] [address], [place] [address] August, [facility] [address] [id number] [address] [place] [address], [place] [address] August, [facility] [address] [id number] [address] [place] [address], [place] [address] August, [facility] [address] [id number] [address] [place] [address], [place] [address] Jun, [facility] [address] [id number] [address] [place] [address], [place] [address] Jun, [facility] [address] [id number] [address] [place] [address], [place] [address] May, [facility] [address] [id number] [address] [place] [address], [place] [address] May, [facility] [address] [id number] [address] [place] [address], [place] [address] May, [facility] [address] [id number] [address] [place] [address], [place] [address] May, [facility] [address] [id number] [address] [place] [address], [place] [address] Apr, [facility] [address] [id number] [address] [place] [address], [place] [address] Apr, [facility] [address] [id number] [address] [place] [address], [place] [address] Mar, [facility] [address] [id number] [address] [place] [address], [place] [address] Mar, [facility] [address] [id number] [address] [place] [address], [place] [address] Mar, [facility] [address] [id number] [address] [place] [address], [place] [address] Mar, [facility] [address] [id number] [address] [place] [address], [place] [address] Mar, [facility] [address] [id number] [address] [place] [address], [place] [address] Mar, [facility] [address] [id number] [address] [place] [address], [place] [address] Mar, [facility] [address] [id number] [address] [place] [address], [place] [address] Mar, [facility] [address] [id number] [address] [place] [address], [place] [address] Mar, [facility] [address] [id number] [address] [place] [address], [place] [address] Feb, [facility] [address] [id number] [address] [place] [address], [place] [address] Feb, [facility] [address] [id number] [address] [place] [address], [place] [id number] Jan, [facility] [address] [id number] [address] [place] [address], [place] [address] Jan, [facility] [address] [id number] [address] [place] [address], [place] [address] Jan, [facility] [address] [id number] [address] [place] [address], [place] [address] Jan, [facility] [address] [id number] [address] [place] [address], [place] [address] Jan, [facility] [address] [id number] [address] [place] [address], [place] [address] Dec, [facility] [address] [id number] [address] [place] [address], [place] [address] Nov, [facility] [address] [id number] [address] [place] [address], [place] [address] Nov, [facility] [address] [id number] [address] [place] [address], [place] [address] Nov, [facility] [address] [id number] [address] [place] [address], [place] [address] Oct, [facility] [address] [id number] [address] [place] [address], [place] [id number] Oct, [facility] [address] [id number] [address] [place] [address], [place] [address] Sep, [facility] [address] [id number] [address] [place] [address], [place] [address] Sep, [facility] [address] [id number] [address] [place] [address], [place] [address] August, [facility] [address] [id number] [address] [place] [address], [place] [address] August, [facility] [address] [id number] [address] [place] [address], [place] [address] August, [facility] [address] [id number] [address] [place] [address], [place] [id number] August, [facility] [address] [id number] [address] [place] [address], [place] [address] Jul, [facility] [address] [id number] [address] [place] [address], [place] [address] Jul, [facility] [address] [id number] [address] [place] [address], [place] [id number] Jun, [facility] [address] [id number] [address] [place] [address], [place] [id number] May, [facility] [address] [id number] [address] [place] [address], [place] [id number] 22 May, 2012 [facility] [address] [id number] [address] [place] [address], [place] [id number] 18 May, 2012 [facility] [address] [id number] [address] [place] [address], [place] [id number] 15 May, 2012 [facility] [address] [id number] [address] [place] [address], [place] [id number] 13 May, 2012 [facility] [address] [id number] [address] [place] [address], [place] [id number] 13 May, 2012 [facility] [address] [id number] [address] [place] [address], [place] [id number] May, [facility] [address] [id number] [address] [place] [address], [place] [id number] August, [facility] [address] [id number] [address] [place] [address], [place] [id number] Jul, [facility] [address] [id number] [address] [place] [address], [place] [id number] Jul, [facility] [address] [id number] [address] [place] [address], [place] [id number] May, [facility] [address] [id number] [address] [place] [address], [place] [id number] May, [facility] [address] [id number] [address] [place] [address], [place] [id number] Mar, [facility] [address] [id number] [address] [place] [address], [place] [id number] Sep, [facility] [address] [id number] [address] [place] [address], [place] [id number] 16 Jul, 2009 [facility] [address] [id number] [address] [place] [address], [place] [id number] 07 Mar, 2009 [facility] [address] [id number] [address] [place] [address], [place] [id number] Feb, [facility] [address] [facility] [id number] [address] [place] [id number] Feb, IMMUNIZATIONS No Known Immunizations SOCIAL HISTORY [...]
--- OUTSIDE RECORDS SUMMARY | 2019-11-11 02:34 | XMS REPORT ---
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 Active 441020781032445 Problem Controlled type 2 diabetes m ellitus without complication, without long- term current use of insulin E11.9 Active 116123927 Problem Neuropathy G62.9 Active 376687510 Problem Seasonal allergic rhinitis due to other allergic trigger J30.89 Active 674055696 Problem Bilateral tinnitus H93.13 Active 4 186937283763 Problem Type 2 diabetes mellitus with hyperglycemia E11.65 Active 551200058928196 Problem Type 2 diabetes 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.49 Active 35585755 Problem Observed sleep apnea G47.30 Active 85250689 Problem Other elevated white blood cell (WBC) count D72.82 8 Active 303340826 Problem Tinnitus of both ears H93.13 Active 3270746696433 Problem Hypertension, benign I10 Active 90104815 Problem Tinnitus of left ear H93.12 Active 0601714787634 Problem Elevated white blood cell count, unspecified D72.8 29 Active 059214826 Problem Type 2 diabetes mellitus wit h diabetic neuropathy, without long-term current use of insulin E11.40 Active 42267 006 Problem Cerebrovascular accident (CVA) due to em bolism of other cerebral artery I63.49 Active 701054635 Problem Altered mental status R41.82 Active 592162295 Problem Gastroesophageal reflux disease with esophagitis K 21.0 Active 397115262 ALLERGIES No Information ENCOUNTERS Encounter Location Date Diagnosis [facility] [address] [id number] [place] [address] Jul, [facility] [address] [id number] [place] [address] Jun, [facility] [address] [id number] [place] [address] May, [facility] [address] [id number] [place] [address] May, Type 2 diabetes mellitus without complic ations E11.9 [facility] [id number] [place] [address] Mar, Neuropathy G62.9 [facility] [id number] [place] [address] Mar, [facility] [id number] [place] [address] Dec, [facility] [id number] [place] [address] Nov, Actinic keratoses L57.0 [facility] [id number] [place] [address] Nov, [facility] [id number] [place] [address] Nov, Type 2 diabetes mellitus without complic ations E11.9 [facility] [id number] [place] [address] Oct, Controlled type 2 diabetes mellitus with out complication, without long-term current use of insulin E11.9 [facility] [id number] [place] [address] Oct, [facility] [id number] [place] [address] Oct, [facility] [id number] [place] [address] Oct, Controlled type 2 diabetes mellitus with out complication, without long-term current use of insulin E11.9 [facility] [address] [address] Oct, Essential (primary) hypertension I10 ; T ype 2 diabetes mellitus without complications E11.9 ; Actinic keratoses L57.0 and Seborrheic keratoses L82.1 [place] [address] [address] Oct, [place] [address] [address] Sep, Hypertension, benign I10 and Controlled type 2 diabetes mellitus without complication, without long-term current use of insulin E11.9 [place] [address] [address] Sep, Other elevated white blood cell (WBC) co unt D72.828 [place] [address] [address] August, Neuropathy G62.9 [place] [address] [address] August, Other elevated white blood cell (WBC) co unt D72.828 [place] [address] [address] August, Type 2 diabetes mellitus with foot ulcer E11.621 [place] [address] [address] Jul, [place] [address] [address] Jul, Neuropathy G62.9 [place] [address] [address] Jun, [place] [address] [address] Jun, Neuropathy G62.9 [place] [address] [address] May, Neuropathy G62.9 [place] [address] [address] Mar, Type 2 diabetes mellitus without complic ations E11.9 [place] [address] [address] Feb, Neuropathy G62.9 [place] [address] [address] 13 Feb, 2018 Actinic keratoses L57.0 [place] [address] [address] 09 Feb, 2018 Type 2 diabetes mellitus without complic ations E11.9 ; Tobacco abuse Z72.0 ; Tobacco abuse counseling Z71.6 and Atherosclerotic heart disease of blackfeet coronary artery without angina pectoris I25.10 [place] [address] [address] 08 Feb, 2018 Type 2 diabetes mellitus without complic ations E11.9 ; Tobacco abuse Z72.0 ; Tobacco abuse counseling Z71.6 ; Atherosclerotic heart disease of blackfeet coronary artery without angina pectoris I25.10 ; Seborrheic keratoses L82.1 and Gastroesophageal reflux disease with esophagitis K21.0 [facility] [address] [place] [id number] [place] [address] Jan, Abscess L02.91 [place] [address] [address] Jan, Neuropathy G62.9 [place] [address] [address] 20 Dec, 2017 Neuropathy G62.9 ; Cerebrovascular accid ent (CVA) due to embolism of other cerebral artery I63.49 and Seasonal allergic rhinitis due to other allergic trigger J30.89 [facility] [place] [address] [place] [id number] [place] [address] 10 Dec, 2017 Altered mental status R41.82 [place] [address] [address] 16 Nov, 2017 Type 2 diabetes mellitus with diabetic n europathy, without long-term current use of insulin E11.40 [place] [address] [address] Oct, Neuropathy G62.9 ; Type 2 diabetes melli tus with other diabetic neurological complication E11.49 ; Type 2 diabetes mellitus with hyperglycemia E11.65 ; Actinic keratoses L57.0 and Observed sleep apnea G47.[address] [address] Sep, Tinnitus of both ears H93.13 and Actinic keratitis, unspecified laterality H16.139 [place] [address] [address] August, Type 2 diabetes mellitus without complic ations E11.9 and Controlled type 2 diabetes mellitus without complication, without long-term current use of insulin E11.[address] [address] August, Seborrheic keratoses L82.1 and Tinnitus of left ear H93.12 [place] [address] [address] Jul, Controlled type 2 diabetes mellitus with out complication, without long-term current use of insulin E11.9 ; Seborrheic keratoses L82.1 ; Bilateral tinnitus H93.13 and Seasonal allergic rhinitis due to other allergic trigger J30.89 [facility] [address] [id number] May, Encounter for dental examination Z01.20 [facility] [address] [id number] Jan, Encounter for dental examination Z01.20 [facility] [address] [address] Jan, Type 2 diabetes mellitus without complic ations E11.9 and Acute non- recurrent maxillary sinusitis J01.00 [facility] [address] [facility] [id number] [place] [address] Dec, Right ear impacted cerumen H 61.21 and Acute suppurative otitis media of right ear without spontaneous rupture of tympanic membrane, recurrence not specified H66.001 [facility] [address] [address] Nov, Type 2 diabetes mellitus without complic ations E11.9 and Neuropathy G62.9 [facility] [address] [id number] Oct, Encounter for dental examination Z01.20 [facility] [address] [id number] Jun, Dental examination Z01.20 [facility] [address] [address] 16 Jun, 2016 Atherosclerotic heart disease of blackfeet coronary artery without angina pectoris I25.10 [facility] [address] [address] Jun, Atherosclerotic heart disease of blackfeet coronary artery without angina pectoris I25.10 [facility] [address] [address] Jun, Type 2 diabetes mellitus without complic ations E11.9 [facility] [address] [id number] May, Encounter for dental examination Z01.20 [facility] [address] [id number] Apr, Dental caries K02.9 [facility] [address] [id number] Apr, Dental examination Z01.20 [facility] [address] [address] Dec, Type 2 diabetes mellitus without complic ations E11.9 ; 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 ; Essential (primary) hypertension I10 and Elevated white blood cell count, unspecified D72.829 [place] [address] [address] Jul, Diabetes mellitus without mention of com plication, type II or unspecified type, not stated as uncontrolled 250.00 [place] [address] [place] [id number] [place] [address] 11 Jul, 2015 [facility] [address] [id number] [place] [address] Jan, Encounter for immunization Z23 [facility] [address] [facility] [id number] [place] [id number] Dec, Dental examination V72.2 [facility] [id number] [place] [address] 07 Nov, 2014 Cancer of lung, upper lobe 162.3 [facility] [id number] [place] [address] Sep, Lung cancer 162.9 ; CAD (coronary artery disease) 414.00 and Depression 311 [facility] [id number] [place] [address] 14 Jul, 2014 [facility] [address] [place] [id number] [place] [address] Jul, [facility] [address] [place] [address] [id number] [place] [address] Jun, [facility] [id number] [place] [address] Jun, [facility] [address] [address] Mar, [facility] [id number] [place] [address] Mar, [facility] [id number] [place] [address] Jan, [facility] [id number] [place] [address] Jan, [facility] [address] [place] [id number] [place] [address] Jan, [facility] [address] [place] [id number] [place] [address] Jan, [facility] [address] [place] [id number] [place] [address] Jan, [facility] [address] [facility] [id number] [place] [address] Jan, [facility] [address] [facility] [id number] [place] [address] Dec, [facility] [address] [id number] [place] [address] Dec, [facility] [address] [id number] [place] [address] Oct, [facility] [address] [facility] [id number] [place] [address] Oct, [facility] [address] [id number] [place] [address] Sep, [facility] [address] [id number] [place] [address] Sep, [facility] [address] [id number] [place] [address] August, [facility] [address] [id number] [place] [address] August, [facility] [address] [id number] [place] [address] August, [facility] [address] [id number] [place] [address] August, [facility] [address] [id number] [place] [address] August, [facility] [address] [id number] [place] [address] August, [facility] [address] [id number] [place] [address] Jun, [facility] [address] [id number] [place] [address] Jun, [facility] [address] [id number] [place] [address] May, [facility] [address] [id number] [place] [address] May, [facility] [address] [id number] [place] [address] May, [facility] [address] [id number] [place] [address] May, [facility] [id number] [place] [address] Apr, [facility] [id number] [place] [address] Apr, [facility] [address] [id number] [place] [address] Mar, [facility] [id number] [place] [address] Mar, [facility] [id number] [place] [address] Mar, [facility] [id number] [place] [address] Mar, [facility] [address] [id number] [place] [address] Mar, [facility] [id number] [place] [address] Mar, [facility] [id number] [place] [address] Mar, [facility] [id number] [place] [address] Mar, [facility] [address] [id number] [place] [address] Mar, [facility] [address] [place] [id number] [place] [address] Feb, [facility] [address] [id number] [place] [address] Feb, [facility] [id number] [place] [address] Jan, [facility] [address] [facility] [id number] [place] [address] Jan, [facility] [address] [id number] [place] [address] Jan, [facility] [address] [id number] [place] [address] Jan, [facility] [address] [id number] [place] [address] Jan, [facility] [address] [id number] [place] [address] Dec, [facility] [address] [id number] [place] [address] Nov, [facility] [address] [id number] [place] [address] Nov, [facility] [address] [id number] [place] [address] Nov, [facility] [address] [id number] [place] [address] Oct, [facility] [address] [id number] [place] [address] Oct, [facility] [address] [id number] [place] [address] Sep, [facility] [address] [id number] [place] [address] Sep, [facility] [address] [id number] [place] [address] August, [facility] [address] [id number] [place] [address] August, [facility] [address] [id number] [place] [address] August, [facility] [address] [id number] [place] [address] August, [facility] [address] [id number] [place] [address] 16 Jul, 2012 [facility] [address] [id number] [place] [address] Jul, [facility] [address] [id number] [place] [address] Jun, [facility] [address] [id number] [place] [address] May, [facility] [address] [id number] [place] [address] May, [facility] [address] [id number] [place] [address] May, [facility] [address] [id number] [place] [address] May, [facility] [address] [id number] [place] [address] May, [facility] [address] [id number] [place] [address] May, [facility] [address] [id number] [place] [address] May, [facility] [address] [id number] [place] [address] August, [facility] [address] [id number] [place] [address] Jul, [facility] [address] [id number] [place] [address] Jul, [facility] [address] [id number] [place] [address] May, [facility] [address] [id number] [place] [address] May, [facility] [address] [id number] [place] [address] Mar, [facility] [address] [id number] [place] [address] Sep, [facility] [address] [facility] [id number] [place] [address] Jul, [facility] [address] [id number] [place] [address] Mar, [facility] [address] [id number] [place] [address] Feb, [facility] [address] [id number] [place] [address] Feb, IMMUNIZATIONS No Known Immunizations SOCIAL HISTORY Never Assessed REASON FOR VISIT PLAN OF CARE VITAL SIGNS Height 71 in 2013-06-23 Weight 207 lbs 2013-06-23 Temperature 98.5 degrees Fahrenheit 2013-06-23 Heart Rate 88 bpm 2013-06-23 Respiratory Rate 18 2013-06-23 Blood pressure systolic 130 mmHg 2013-06-23 Blood pressure diastolic 82 mmHg 2013-06-23 MEDICATIONS Unknown Medications RESULTS No Results PROCEDURES Procedure Date Ordered Result Body Site GLYCATED HEMOGLOBIN TEST June 23, 2013 INSTRUCTIONS MEDICATIONS ADMINISTERED No Known Medications [...]
--- OUTSIDE RECORDS SUMMARY | 2019-11-11 02:34 | XMS REPORT ---
Author Author Teddy RIGGS Organization [facility] Address [address] [place] [address] Care Team Providers Care Life Insurance Specialist Name Role Phone ONEILJAYE Unavailable PROBLEMS Type Condition ICD9-CM Code NDY03-BP Code Onset Dates Condition S tatus SNOMED Code Problem Type 2 diabetes mellitus without complications E11 .9 Active 965826554 Problem Essential (primary) hypertension I10 Active 62783356 Problem Type 2 diabetes mellitus with foot ulcer E11.621 Active 929965655 Problem Atherosclerotic heart diseas e of [place] coronary artery without angina pectoris I25.10 Active [id number] Problem Controlled type 2 diabetes m ellitus without complication, without long- term current use of insulin E11.9 Active 087442982 Problem Neuropathy G62.9 Active 613554149 Problem Seasonal allergic rhinitis due to other allergic trigger J30.89 Active 747003861 Problem Bilateral tinnitus H93.13 Active 4 199205872599 Problem Type 2 diabetes mellitus with hyperglycemia E11.65 Active 596588867286251 Problem Type 2 diabetes 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.49 Active 26717873 Problem Observed sleep apnea G47.30 Active 31070053 Problem Other elevated white blood cell (WBC) count D72.82 8 Active 725690308 Problem Tinnitus of both ears H93.13 Active 4182502844920 Problem Hypertension, benign I10 Active 30636163 Problem Tinnitus of left ear H93.12 Active 9200562574606 Problem Elevated white blood cell count, unspecified D72.8 29 Active 096563261 Problem Type 2 diabetes mellitus wit h diabetic neuropathy, without long-term current use of insulin E11.40 Active 71964 006 Problem Cerebrovascular accident (CVA) due to em bolism of other cerebral artery I63.49 Active 700168736 Problem Altered mental status R41.82 Active 668517087 Problem Gastroesophageal reflux disease with esophagitis K 21.0 Active 006399873 ALLERGIES No Information ENCOUNTERS Encounter Location Date Diagnosis [facility] [address] [id number] [place] [address] Jul, [facility] [address] [id number] [place] [address] Jun, [facility] [address] [id number] [place] [address] May, [facility] [address] [place] [id number] [place] [address] May, Type 2 diabetes mellitus without complic ations E11.9 [facility] [id number] [place] [address] Mar, Neuropathy G62.9 [facility] [id number] [place] [address] Mar, [facility] [id number] [place] [address] Dec, [facility] [id number] [place] [address] Nov, Actinic keratoses L57.0 [facility] [id number] [place] [address] Nov, [facility] [id number] [place] [address] Nov, Type 2 diabetes mellitus without complic ations E11.9 [facility] [id number] [place] [address] Oct, Controlled type 2 diabetes mellitus with out complication, without long-term current use of insulin E11.9 [facility] [id number] [place] [address] Oct, [facility] [id number] [place] [address] Oct, [facility] [id number] [place] [address] Oct, Controlled type 2 diabetes mellitus with out complication, without long-term current use of insulin E11.9 [facility] [address] [address] Oct, Essential (primary) hypertension I10 ; T ype 2 diabetes mellitus without complications E11.9 ; Actinic keratoses L57.0 and Seborrheic keratoses L82.1 [place] [address] [address] Oct, [place] [address] [address] Sep, Hypertension, benign I10 and Controlled type 2 diabetes mellitus without complication, without long-term current use of insulin E11.9 [place] [address] [address] Sep, Other elevated white blood cell (WBC) co unt D72.828 [place] [address] [address] August, Neuropathy G62.9 [place] [address] [address] August, Other elevated white blood cell (WBC) co unt D72.828 [place] [address] [address] August, Type 2 diabetes mellitus with foot ulcer E11.621 [place] [address] [address] Jul, [place] [address] [address] Jul, Neuropathy G62.9 [place] [address] [address] Jun, [place] [address] [address] Jun, Neuropathy G62.9 [place] [address] [address] May, Neuropathy G62.9 [place] [address] [address] Mar, Type 2 diabetes mellitus without complic ations E11.9 [place] [address] [address] Feb, Neuropathy G62.9 [place] [address] [address] 13 Feb, 2018 Actinic keratoses L57.0 [place] [address] [address] 09 Feb, 2018 Type 2 diabetes mellitus without complic ations E11.9 ; Tobacco abuse Z72.0 ; Tobacco abuse counseling Z71.6 and Atherosclerotic heart disease of [place] coronary artery without angina pectoris I25.10 [place] [address] [address] 08 Feb, 2018 Type 2 diabetes mellitus without complic ations E11.9 ; Tobacco abuse Z72.0 ; Tobacco abuse counseling Z71.6 ; Atherosclerotic heart disease of [place] coronary artery without angina pectoris I25.10 ; Seborrheic keratoses L82.1 and Gastroesophageal reflux disease with esophagitis K21.0 [facility] [address] [place] [id number] [place] [address] Jan, Abscess L02.91 [place] [address] [address] Jan, Neuropathy G62.9 [place] [address] [address] 20 Dec, 2017 Neuropathy G62.9 ; Cerebrovascular accid ent (CVA) due to embolism of other cerebral artery I63.49 and Seasonal allergic rhinitis due to other allergic trigger J30.89 [facility] [place] [address] [place] [id number] [place] [address] 10 Dec, 2017 Altered mental status R41.82 [place] [address] [address] 16 Nov, 2017 Type 2 diabetes mellitus with diabetic n europathy, without long-term current use of insulin E11.40 [place] [address] [address] Oct, Neuropathy G62.9 ; Type 2 diabetes melli tus with other diabetic neurological complication E11.49 ; Type 2 diabetes mellitus with hyperglycemia E11.65 ; Actinic keratoses L57.0 and Observed sleep apnea G47.[address] [address] Sep, Tinnitus of both ears H93.13 and Actinic keratitis, unspecified laterality H16.139 [place] [address] [address] August, Type 2 diabetes mellitus without complic ations E11.9 and Controlled type 2 diabetes mellitus without complication, without long-term current use of insulin E11.[address] [address] August, Seborrheic keratoses L82.1 and Tinnitus of left ear H93.12 [place] [address] [address] Jul, Controlled type 2 diabetes mellitus with out complication, without long-term current use of insulin E11.9 ; Seborrheic keratoses L82.1 ; Bilateral tinnitus H93.13 and Seasonal allergic rhinitis due to other allergic trigger J30.89 [facility] [address] [id number] May, Encounter for dental examination Z01.20 [facility] [address] [id number] Jan, Encounter for dental examination Z01.20 [facility] [address] [address] Jan, Type 2 diabetes mellitus without complic ations E11.9 and Acute non- recurrent maxillary sinusitis J01.00 [facility] [address] [id number] [place] [address] Dec, Right ear impacted cerumen H 61.21 and Acute suppurative otitis media of right ear without spontaneous rupture of tympanic membrane, recurrence not specified H66.001 [facility] [address] [address] Nov, Type 2 diabetes mellitus without complic ations E11.9 and Neuropathy G62.9 [facility] [address] [id number] Oct, Encounter for dental examination Z01.20 [facility] [address] [id number] Jun, Dental examination Z01.20 [facility] [address] [address] 16 Jun, 2016 Atherosclerotic heart disease of [place] coronary artery without angina pectoris I25.10 [facility] [address] [address] Jun, Atherosclerotic heart disease of [place] coronary artery without angina pectoris I25.10 [facility] [address] [address] Jun, Type 2 diabetes mellitus without complic ations E11.9 [facility] [address] [id number] May, Encounter for dental examination Z01.20 [facility] [address] [id number] Apr, Dental caries K02.9 [facility] [address] [id number] Apr, Dental examination Z01.20 [facility] [address] [address] Dec, Type 2 diabetes mellitus without complic ations E11.9 ; 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 ; Essential (primary) hypertension I10 and Elevated white blood cell count, unspecified D72.829 [place] [address] [address] Jul, Diabetes mellitus without mention of com plication, type II or unspecified type, not stated as uncontrolled 250.00 [place] [address] [place] [id number] [place] [address] 11 Jul, 2015 [facility] [address] [id number] [place] [address] Jan, Encounter for immunization Z23 [facility] [address] [facility] [id number] [place] [id number] Dec, Dental examination V72.2 [facility] [id number] [place] [address] 07 Nov, 2014 Cancer of lung, upper lobe 162.3 [facility] [id number] [place] [address] Sep, Lung cancer 162.9 ; CAD (coronary artery disease) 414.00 and Depression 311 [facility] [id number] [place] [address] 14 Jul, 2014 [facility] [address] [place] [address] [id number] [place] [address] Jul, [facility] [id number] [place] [address] Jun, [facility] [id number] [place] [address] Jun, [facility] [address] [address] Mar, [facility] [address] [id number] [place] [address] Mar, [facility] [id number] [place] [address] Jan, [facility] [id number] [place] [address] Jan, [facility] [address] [place] [address] [id number] [place] [address] Jan, [facility] [address] [place] [id number] [place] [address] Jan, [facility] [address] [place] [address] [id number] [place] [address] Jan, [facility] [address] [facility] [id number] [place] [address] Jan, [facility] [address] [facility] [facility] [id number] [facility] [place] [address] Dec, [facility] [address] [id number] [place] [address] Dec, [facility] [address] [id number] [facility] [place] [address] Oct, [facility] [address] [facility] [id number] [place] [address] Oct, [facility] [address] [id number] [place] [address] Sep, [facility] [address] [id number] [place] [address] Sep, [facility] [address] [id number] [place] [address] August, [facility] [address] [id number] [place] [address] August, [facility] [address] [id number] [place] [address] August, [facility] [address] [id number] [place] [address] August, [facility] [address] [id number] [place] [address] August, [facility] [id number] [place] [address] August, [facility] [address] [id number] [place] [address] Jun, [facility] [address] [id number] [place] [address] Jun, [facility] [address] [id number] [place] [address] May, [facility] [address] [id number] [facility] [place] [address] May, [facility] [address] [id number] [place] [address] May, [facility] [address] [id number] [place] [address] May, [facility] [address] [address] [id number] [place] [address] Apr, [facility] [id number] [place] [address] Apr, [facility] [address] [id number] [place] [address] Mar, [facility] [id number] [place] [address] Mar, [facility] [id number] [place] [address] Mar, [facility] [id number] [place] [address] Mar, [facility] [address] [id number] [place] [address] Mar, [facility] [id number] [place] [address] Mar, [facility] [id number] [place] [address] Mar, [facility] [id number] [place] [address] Mar, [facility] [address] [id number] [place] [address] Mar, [facility] [id number] [place] [address] Feb, [facility] [address] [id number] [place] [address] Feb, [facility] [address] [id number] [place] [address] Jan, [facility] [address] [facility] [id number] [place] [address] Jan, [facility] [address] [id number] [place] [address] Jan, [facility] [address] [id number] [place] [address] Jan, [facility] [id number] [place] [address] Jan, [facility] [address] [id number] [place] [address] Dec, [facility] [address] [id number] [place] [address] Nov, [facility] [address] [id number] [place] [address] Nov, [facility] [address] [id number] [place] [address] Nov, [facility] [address] [id number] [place] [address] Oct, [facility] [address] [id number] [place] [address] Oct, [facility] [address] [id number] [place] [address] Sep, [facility] [address] [id number] [place] [address] Sep, [facility] [address] [id number] [place] [address] August, [facility] [address] [id number] [place] [address] August, [facility] [address] [id number] [place] [address] August, [facility] [address] [id number] [place] [address] August, [facility] [address] [id number] [place] [address] 16 Jul, 2012 [facility] [address] [id number] [place] [address] Jul, [facility] [address] [id number] [place] [address] Jun, [facility] [address] [id number] [place] [address] May, [facility] [address] [id number] [place] [address] May, [facility] [address] [id number] [place] [address] May, [facility] [address] [id number] [place] [address] May, [facility] [address] [id number] [place] [address] May, [facility] [address] [id number] [place] [address] May, [facility] [address] [id number] [place] [address] May, [facility] [address] [id number] [place] [address] August, [facility] [id number] [place] [address] Jul, [facility] [address] [id number] [place] [address] Jul, [facility] [address] [id number] [place] [address] May, [facility] [address] [id number] [place] [address] May, [facility] [address] [id number] [place] [address] Mar, [facility] [address] [id number] [place] [address] Sep, [facility] [address] [facility] [id number] [place] [address] Jul, [facility] [address] [id number] [place] [address] Mar, [facility] [address] [id number] [place] [address] Feb, [facility] [address] [id number] [place] [address] Feb, IMMUNIZATIONS No Known Immunizations SOCIAL HISTORY [...]
--- OUTSIDE RECORDS SUMMARY | 2019-11-11 02:34 | XMS REPORT ---
Author Author Teddy Elkins Doctor Organization [facility] Address Unknown Phone Unavailable Care Team Providers Care Can Stacker Name Role Phone Migration, Doctor Unavailable Unavailable PROBLEMS Type Condition ICD9-CM Code LBB15-CD Code Onset Dates Condition S tatus SNOMED Code Problem Type 2 diabetes mellitus without complications E11 .9 Active 514257104 Problem Essential (primary) hypertension I10 Active 80074526 Problem Type 2 diabetes mellitus with foot ulcer E11.621 Active 721230920 Problem Atherosclerotic heart diseas e of [place] coronary artery without angina pectoris I25.10 Active 883083087406132 Problem Controlled type 2 diabetes m ellitus without complication, without long- term current use of insulin E11.9 Active 868584886 Problem Neuropathy G62.9 Active 756369553 Problem Seasonal allergic rhinitis due to other allergic trigger J30.89 Active 863898640 Problem Bilateral tinnitus H93.13 Active 4 402150293183 Problem Type 2 diabetes mellitus with hyperglycemia E11.65 Active 066900972847407 Problem Type 2 diabetes 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.49 Active 29906662 Problem Observed sleep apnea G47.30 Active 95958797 Problem Other elevated white blood cell (WBC) count D72.82 8 Active 352336837 Problem Tinnitus of both ears H93.13 Active 8570900743483 Problem Hypertension, benign I10 Active 94540438 Problem Tinnitus of left ear H93.12 Active 8756958980366 Problem Elevated white blood cell count, unspecified D72.8 29 Active 599548892 Problem Type 2 diabetes mellitus wit h diabetic neuropathy, without long-term current use of insulin E11.40 Active 72841 006 Problem Cerebrovascular accident (CVA) due to em bolism of other cerebral artery I63.49 Active 782215606 Problem Altered mental status R41.82 Active 264602173 Problem Gastroesophageal reflux disease with esophagitis K 21.0 Active 502182671 ALLERGIES No Information ENCOUNTERS Encounter Location Date Diagnosis [facility] [address] [id number] [place] [address] Jul, [facility] [id number] [place] [address] Jun, [facility] [id number] [place] [address] May, [facility] [id number] [place] [address] May, Type 2 diabetes mellitus without complic ations E11.9 [facility] [id number] [place] [address] Mar, Neuropathy G62.9 [facility] [id number] [place] [address] Mar, [facility] [address] [address] Dec, [facility] [id number] [place] [address] Nov, Actinic keratoses L57.0 [facility] [address] [address] Nov, [facility] [id number] [place] [address] Nov, Type 2 diabetes mellitus without complic ations E11.9 [facility] [id number] [place] [address] Oct, Controlled type 2 diabetes mellitus with out complication, without long-term current use of insulin E11.9 [facility] [id number] [place] [address] Oct, [facility] [address] [address] Oct, [facility] [address] [address] Oct, Controlled type 2 diabetes mellitus with out complication, without long-term current use of insulin E11.9 [facility] [address] [address] Oct, Essential (primary) hypertension I10 ; T ype 2 diabetes mellitus without complications E11.9 ; Actinic keratoses L57.0 and Seborrheic keratoses L82.1 [facility] [address] [address] Oct, [facility] [address] [address] Sep, Hypertension, benign I10 and Controlled type 2 diabetes mellitus without complication, without long-term current use of insulin E11.9 [facility] [address] [address] Sep, Other elevated white blood cell (WBC) co unt D72.828 [place] [address] [address] August, Neuropathy G62.9 [place] [address] [address] August, Other elevated white blood cell (WBC) co unt D72.828 [place] [address] [address] August, Type 2 diabetes mellitus with foot ulcer E11.621 [facility] [address] [address] Jul, [place] [address] [address] Jul, Neuropathy G62.9 [facility] [address] [address] Jun, [facility] [address] [address] Jun, Neuropathy G62.9 [facility] [address] [address] May, Neuropathy G62.9 [facility] [address] [address] Mar, Type 2 diabetes mellitus without complic ations E11.9 [place] [address] [address] 30 Feb, 2018 Neuropathy G62.9 [place] [address] [address] 13 Feb, 2018 Actinic keratoses L57.0 [place] [address] [address] 09 Feb, 2018 Type 2 diabetes mellitus without complic ations E11.9 ; Tobacco abuse Z72.0 ; Tobacco abuse counseling Z71.6 and Atherosclerotic heart disease of [place] coronary artery without angina pectoris I25.10 [place] [address] [address] 08 Feb, 2018 Type 2 diabetes mellitus without complic ations E11.9 ; Tobacco abuse Z72.0 ; Tobacco abuse counseling Z71.6 ; Atherosclerotic heart disease of [place] coronary artery without angina pectoris I25.10 ; Seborrheic keratoses L82.1 and Gastroesophageal reflux disease with esophagitis K21.[address] [facility] [id number] [place] [address] Jan, Abscess L02.91 [place] [address] [address] 23 Jan, 2018 Neuropathy G62.9 [place] [address] [address] 20 Dec, 2017 Neuropathy G62.9 ; Cerebrovascular accid ent (CVA) due to embolism of other cerebral artery I63.49 and Seasonal allergic rhinitis due to other allergic trigger J30.89 [facility] [id number] [place] [address] 10 Dec, 2017 Altered mental status R41.82 [place] [address] [address] 16 Nov, 2017 Type 2 diabetes mellitus with diabetic n europathy, without long-term current use of insulin E11.40 [place] [address] [address] Oct, Neuropathy G62.9 ; Type 2 diabetes melli tus with other diabetic neurological complication E11.49 ; Type 2 diabetes mellitus with hyperglycemia E11.65 ; Actinic keratoses L57.0 and Observed sleep apnea G47.30 [place] [address] [id number] Sep, Tinnitus of both ears H93.13 and Actinic keratitis, unspecified laterality H16.139 [place] [address] [id number] August, Type 2 diabetes mellitus without complic ations E11.9 and Controlled type 2 diabetes mellitus without complication, without long-term current use of insulin E11.9 [place] [address] [id number] August, Seborrheic keratoses L82.1 and Tinnitus of left ear H93.12 [place] [address] [address] Jul, Controlled type 2 diabetes mellitus with out complication, without long-term current use of insulin E11.9 ; Seborrheic keratoses L82.1 ; Bilateral tinnitus H93.13 and Seasonal allergic rhinitis due to other allergic trigger J30.89 [facility] [address] [id number] May, Encounter for dental examination Z01.20 [facility] [address] [id number] Jan, Encounter for dental examination Z01.20 [place] [address] [id number] Jan, Type 2 diabetes mellitus without complic ations E11.9 and Acute non- recurrent maxillary sinusitis J01.00 [facility] [address] [facility] [id number] [place] [address] Dec, Right ear impacted cerumen H 61.21 and Acute suppurative otitis media of right ear without spontaneous rupture of tympanic membrane, recurrence not specified H66.001 [place] [address] [address] Nov, Type 2 diabetes mellitus without complic ations E11.9 and Neuropathy G62.9 [facility] [address] [id number] Oct, Encounter for dental examination Z01.20 [facility] [address] [id number] Jun, Dental examination Z01.20 [facility] [address] [address] 16 Jun, 2016 Atherosclerotic heart disease of [place] coronary artery without angina pectoris I25.10 [facility] [address] [address] 15 Jun, 2016 Atherosclerotic heart disease of [place] coronary artery without angina pectoris I25.10 [facility] [address] [address] Jun, Type 2 diabetes mellitus without complic ations E11.9 [facility] [address] [id number] May, Encounter for dental examination Z01.20 [facility] [address] [id number] Apr, Dental caries K02.9 [facility] [address] [id number] Apr, Dental examination Z01.20 [facility] [address] [address] Dec, Type 2 diabetes mellitus without complic ations E11.9 ; assisted current use of insulin Z79.4 ; Essential (primary) hypertension I10 and Elevated white blood cell count, unspecified D72.829 [place] [address] [address] Jul, Diabetes mellitus without mention of com plication, type II or unspecified type, not stated as uncontrolled 250.00 [place] [address] [address] Jul, [facility] [id number] [place] [address] 07 Jan, 2015 Encounter for immunization Z23 [facility] [address] [id number] [place] [id number] Dec, Dental examination V72.2 [facility] [id number] [place] [address] 07 Nov, 2014 Cancer of lung, upper lobe 162.3 [facility] [id number] [place] [address] Sep, Lung cancer 162.9 ; CAD (coronary artery disease) 414.00 and Depression 311 [facility] [id number] [place] [address] 14 Jul, 2014 [facility] [id number] [place] [address] Jul, [facility] [id number] [place] [address] Jun, [facility] [id number] [place] [address] Jun, [facility] [id number] [place] [address] Mar, [facility] [id number] [place] [address] Mar, [facility] [id number] [place] [address] Jan, [facility] [id number] [place] [address] Jan, [facility] [id number] [place] [address] Jan, [facility] [id number] [place] [address] Jan, [facility] [id number] [place] [address] Jan, [facility] [id number] [place] [address] Jan, [facility] [place] [facility] [address] [facility] [id number] [place] [address] Dec, [facility] [place] [facility] [id number] [place] [address] Dec, [facility] [place] [facility] [id number] [place] [address] Oct, [facility] [place] [facility] [id number] [place] [address] Oct, [facility] [place] [facility] [id number] [place] [address] Sep, [facility] [place] [facility] [id number] [place] [address] Sep, [facility] [place] [facility] [id number] [place] [address] August, [facility] [place] [facility] [id number] [place] [address] August, [facility] [place] [facility] [id number] [place] [address] August, [facility] [place] [facility] [id number] [place] [address] August, [facility] [place] [facility] [id number] [place] [address] August, [facility] [place] [facility] [id number] [place] [address] August, [facility] [place] [facility] [id number] [place] [address] Jun, [facility] [place] [facility] [id number] [place] [address] Jun, [facility] [place] [facility] [id number] [place] [address] May, [facility] [place] [facility] [id number] [place] [address] May, [facility] [place] [facility] [id number] [place] [address] May, [facility] [place] [facility] [id number] [place] [address] May, [facility] [place] [facility] [id number] [place] [address] Apr, [facility] [place] [facility] [id number] [place] [address] Apr, [facility] [place] [facility] [id number] [place] [address] Mar, [facility] [place] [facility] [id number] [place] [address] Mar, [facility] [place] [facility] [id number] [place] [address] Mar, [facility] [place] [facility] [id number] [place] [address] Mar, [facility] [place] [facility] [id number] [place] [address] Mar, [facility] [place] [facility] [id number] [place] [address] Mar, [facility] [place] [facility] [id number] [place] [address] Mar, [facility] [place] [facility] [id number] [place] [address] Mar, [facility] [place] [facility] [id number] [place] [address] Mar, [facility] [place] [facility] [id number] [place] [address] Feb, [facility] [place] [facility] [id number] [place] [address] Feb, [facility] [place] [facility] [id number] [place] [address] 24 Jan, 2013 [facility] [place] [facility] [id number] [place] [address] Jan, [facility] [place] [facility] [address] [facility] [id number] [place] [address] Jan, [facility] [place] [facility] [address] [facility] [id number] [place] [address] Jan, [facility] [place] [facility] [id number] [place] [address] Jan, [facility] [place] [facility] [id number] [place] [address] Dec, [facility] [place] [facility] [address] [facility] [id number] [place] [address] Nov, [facility] [place] [facility] [id number] [place] [address] Nov, [facility] [place] [facility] [id number] [place] [address] Nov, [facility] [place] [facility] [id number] [place] [address] Oct, [facility] [place] [facility] [id number] [place] [address] Oct, [facility] [place] [facility] [id number] [place] [address] Sep, [facility] [place] [facility] [id number] [place] [address] Sep, [facility] [place] [facility] [id number] [place] [address] August, [facility] [place] [facility] [id number] [place] [address] August, [facility] [place] [facility] [id number] [place] [address] August, [facility] [place] [facility] [id number] [place] [address] August, [facility] [place] [facility] [id number] [place] [address] Jul, [facility] [place] [facility] [id number] [place] [address] 15 Jul, 2012 [facility] [id number] [place] [address] Jun, [facility] [place] [facility] [id number] [place] [address] May, [facility] [place] [facility] [id number] [place] [address] May, [facility] [place] [facility] [id number] [place] [address] 18 May, 2012 [facility] [place] [facility] [id number] [place] [address] 15 May, 2012 [facility] [place] [facility] [id number] [place] [address] May, [facility] [place] [facility] [id number] [place] [address] May, [facility] [place] [facility] [address] [id number] [place] [address] May, [facility] [place] [facility] [id number] [place] [address] August, [facility] [place] [facility] [id number] [place] [address] 23 Jul, 2011 [facility] [place] [facility] [id number] [place] [address] Jul, [facility] [place] [facility] [id number] [place] [address] May, [facility] [place] [facility] [id number] [place] [address] May, [facility] [place] [facility] [id number] [place] [address] Mar, [facility] [place] [facility] [id number] [place] [address] Sep, [facility] [place] [facility] [address] [id number] [place] [address] Jul, [facility] [address] [facility] [id number] [place] [address] Mar, [facility] [address] [facility] [id number] [place] [address] Feb, [facility] [address] [facility] [id number] [place] [address] Feb, IMMUNIZATIONS No Known Immunizations SOCIAL HISTORY [...]
--- OUTSIDE RECORDS SUMMARY | 2019-11-11 02:34 | XMS REPORT ---
Author Author Teddy RIGGS Organization [facility] Address [address] [place] [address] Care Team Providers Care Mannequin Molder Name Role Phone ONEILJAYE Unavailable PROBLEMS Type Condition ICD9-CM Code JYL06-QW Code Onset Dates Condition S tatus SNOMED Code Problem Type 2 diabetes mellitus without complications E11 .9 Active 522007998 Problem Essential (primary) hypertension I10 Active 46651740 Problem Type 2 diabetes mellitus with foot ulcer E11.621 Active 495743532 Problem Atherosclerotic heart diseas e of [place] coronary artery without angina pectoris I25.10 Active [id number] Problem Controlled type 2 diabetes m ellitus without complication, without long- term current use of insulin E11.9 Active 931399595 Problem Neuropathy G62.9 Active 434209391 Problem Seasonal allergic rhinitis due to other allergic trigger J30.89 Active 944472495 Problem Bilateral tinnitus H93.13 Active 4 444711844889 Problem Type 2 diabetes mellitus with hyperglycemia E11.65 Active 198651981629516 Problem Type 2 diabetes 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.49 Active 83696681 Problem Observed sleep apnea G47.30 Active 64010312 Problem Other elevated white blood cell (WBC) count D72.82 8 Active 406601798 Problem Tinnitus of both ears H93.13 Active 6270221222205 Problem Hypertension, benign I10 Active 12615377 Problem Tinnitus of left ear H93.12 Active 9410077545908 Problem Elevated white blood cell count, unspecified D72.8 29 Active 485927938 Problem Type 2 diabetes mellitus wit h diabetic neuropathy, without long-term current use of insulin E11.40 Active 25511 006 Problem Cerebrovascular accident (CVA) due to em bolism of other cerebral artery I63.49 Active 710172778 Problem Altered mental status R41.82 Active 446131222 Problem Gastroesophageal reflux disease with esophagitis K 21.0 Active 464759960 ALLERGIES No Information ENCOUNTERS Encounter Location Date Diagnosis [facility] [id number] [place] [address] May, [facility] [address] [address] Mar, Neuropathy G62.9 [facility] [address] [address] Mar, [facility] [address] [address] Dec, [facility] [address] [address] Nov, Actinic keratoses L57.0 [facility] [address] [address] Nov, [facility] [address] [address] Nov, Type 2 diabetes mellitus without complic ations E11.9 [facility] [address] [address] Oct, Controlled type 2 diabetes mellitus with out complication, without long-term current use of insulin E11.9 [facility] [address] [address] Oct, [facility] [address] [address] Oct, [facility] [address] [address] Oct, Controlled type 2 diabetes mellitus with out complication, without long-term current use of insulin E11.9 [facility] [address] [address] Oct, Essential (primary) hypertension I10 ; T ype 2 diabetes mellitus without complications E11.9 ; Actinic keratoses L57.0 and Seborrheic keratoses L82.1 [facility] [address] [address] Oct, [facility] [address] [place] [address] Sep, Hypertension, benign I10 and Controlled type 2 diabetes mellitus without complication, without long-term current use of insulin E11.9 [facility] [id number] [place] [address] Sep, Other elevated white blood cell (WBC) co unt D72.828 [facility] [address] [address] August, Neuropathy G62.9 [facility] [address] [address] August, Other elevated white blood cell (WBC) co unt D72.8[address] [address] August, Type 2 diabetes mellitus with foot ulcer E11.621 [address] [address] Jul, [facility] [address] [address] Jul, Neuropathy G62.9 [facility] [address] [address] Jun, [facility] [address] [address] Jun, Neuropathy G62.9 [address] [address] [address] May, Neuropathy G62.9 [address] [place] [address] [address] Mar, Type 2 diabetes mellitus without complic ations E11.9 [facility] [address] [address] Feb, Neuropathy G62.9 [facility] [address] [address] Feb, Actinic keratoses L57.0 [facility] [address] [address] 09 Feb, 2018 Type 2 diabetes mellitus without complic ations E11.9 ; Tobacco abuse Z72.0 ; Tobacco abuse counseling Z71.6 and Atherosclerotic heart disease of [place] coronary artery without angina pectoris I25.[address] [address] 08 Feb, 2018 Type 2 diabetes mellitus without complic ations E11.9 ; Tobacco abuse Z72.0 ; Tobacco abuse counseling Z71.6 ; Atherosclerotic heart disease of [place] coronary artery without angina pectoris I25.10 ; Seborrheic keratoses L82.1 and Gastroesophageal reflux disease with esophagitis K21.0 [facility] [address] [address] Jan, Abscess L02.[address] [address] Jan, Neuropathy G62.[address] [address] 20 Dec, 2017 Neuropathy G62.9 ; Cerebrovascular accid ent (CVA) due to embolism of other cerebral artery I63.49 and Seasonal allergic rhinitis due to other allergic trigger J30.89 [facility] [place] [address] [address] 10 Dec, 2017 Altered mental status R41.[address] [address] 16 Nov, 2017 Type 2 diabetes mellitus with diabetic n europathy, without long-term current use of insulin E11.[address] [address] 17 Oct, 2017 Neuropathy G62.9 ; Type 2 diabetes melli tus with other diabetic neurological complication E11.49 ; Type 2 diabetes mellitus with hyperglycemia E11.65 ; Actinic keratoses L57.0 and Observed sleep apnea G47.[address] [address] Sep, Tinnitus of both ears H93.13 and Actinic keratitis, unspecified laterality H16.139 [facility] [address] [id number] August, Type 2 diabetes mellitus without complic ations E11.9 and Controlled type 2 diabetes mellitus without complication, without long-term current use of insulin E11.9 [facility] [address] [address] August, Seborrheic keratoses L82.1 and Tinnitus of left ear H93.12 [facility] [address] [address] Jul, Controlled type 2 diabetes mellitus with out complication, without long-term current use of insulin E11.9 ; Seborrheic keratoses L82.1 ; Bilateral tinnitus H93.13 and Seasonal allergic rhinitis due to other allergic trigger J30.89 [facility] [address] [id number] May, Encounter for dental examination Z01.20 [facility] [address] [id number] Jan, Encounter for dental examination Z01.20 [facility] [address] [address] Jan, Type 2 diabetes mellitus without complic ations E11.9 and Acute non- recurrent maxillary sinusitis J01.00 [facility] [address] [facility] [id number] [place] [address] Dec, Right ear impacted cerumen H 61.21 and Acute suppurative otitis media of right ear without spontaneous rupture of tympanic membrane, recurrence not specified H66.001 [facility] [address] [address] Nov, Type 2 diabetes mellitus without complic ations E11.9 and Neuropathy G62.9 [facility] [address] [id number] Oct, Encounter for dental examination Z01.20 [facility] [address] [id number] 28 Jun, 2016 Dental examination Z01.20 [facility] [address] [address] 16 Jun, 2016 Atherosclerotic heart disease of [place] coronary artery without angina pectoris I25.10 [facility] [address] [address] 15 Jun, 2016 Atherosclerotic heart disease of [place] coronary artery without angina pectoris I25.10 [facility] [address] [address] 13 Jun, 2016 Type 2 diabetes mellitus without complic ations E11.9 [facility] [address] [id number] May, Encounter for dental examination Z01.20 [facility] [address] [id number] Apr, Dental caries K02.9 [facility] [address] [id number] Apr, Dental examination Z01.20 [facility] [address] [address] 08 Dec, 2015 Type 2 diabetes mellitus without complic ations E11.9 ; 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 ; Essential (primary) hypertension I10 and Elevated white blood cell count, unspecified D72.829 [address] [place] [address] [address] Jul, Diabetes mellitus without mention of com plication, type II or unspecified type, not stated as uncontrolled 250.00 [facility] [address] [address] Jul, [address] [address] Jan, Encounter for immunization Z23 [facility] [address] [id number] Dec, Dental examination V72.2 [address] [address] [place] [address] Nov, Cancer of lung, upper lobe 162.3 [facility] [id number] [place] [address] Sep, Lung cancer 162.9 ; CAD (coronary artery disease) 414.00 and Depression 311 [facility] [id number] [place] [address] 14 Jul, 2014 [facility] [id number] [place] [address] Jul, [facility] [id number] [place] [address] Jun, [facility] [id number] [place] [address] Jun, [facility] [id number] [place] [address] Mar, [facility] [id number] [place] [address] Mar, [facility] [id number] [place] [address] Jan, [facility] [id number] [place] [address] Jan, [facility] [id number] [place] [address] Jan, [facility] [id number] [place] [address] Jan, [facility] [id number] [place] [address] Jan, [facility] [id number] [place] [address] Jan, [facility] [id number] [place] [address] Dec, [facility] [id number] [place] [address] Dec, [facility] [address] [facility] [id number] [place] [address] Oct, [facility] [address] [facility] [id number] [place] [address] Oct, [facility] [address] [facility] [id number] [place] [address] Sep, [facility] [address] [id number] [place] [address] Sep, [facility] [address] [id number] [place] [address] August, [facility] [address] [id number] [place] [address] August, [facility] [address] [id number] [place] [address] August, [facility] [address] [id number] [place] [address] August, [facility] [address] [id number] [place] [address] August, [facility] [address] [id number] [place] [address] August, [facility] [address] [id number] [place] [address] Jun, [facility] [address] [id number] [place] [address] Jun, [facility] [address] [id number] [place] [address] May, [facility] [address] [id number] [place] [address] May, [facility] [address] [id number] [place] [address] May, [facility] [address] [id number] [place] [address] May, [facility] [address] [id number] [place] [address] Apr, [facility] [address] [id number] [place] [address] Apr, [facility] [address] [id number] [place] [address] Mar, [facility] [address] [id number] [place] [address] Mar, [facility] [address] [id number] [place] [address] Mar, [facility] [address] [id number] [place] [address] Mar, [facility] [address] [id number] [place] [address] Mar, [facility] [address] [id number] [place] [address] Mar, [facility] [address] [id number] [place] [address] Mar, [facility] [address] [id number] [place] [address] Mar, [facility] [address] [id number] [place] [address] Mar, [facility] [address] [id number] [place] [address] Feb, [facility] [address] [id number] [place] [address] Feb, [facility] [address] [id number] [place] [address] Jan, [facility] [address] [id number] [place] [address] Jan, [facility] [address] [id number] [place] [address] Jan, [facility] [address] [id number] [place] [address] Jan, [facility] [address] [id number] [place] [address] Jan, [facility] [address] [id number] [place] [address] Dec, [facility] [address] [id number] [place] [address] Nov, [facility] [address] [id number] [place] [address] Nov, [facility] [address] [id number] [place] [address] Nov, [facility] [address] [id number] [place] [address] Oct, [facility] [address] [id number] [place] [address] Oct, [facility] [address] [id number] [place] [address] Sep, [facility] [address] [id number] [place] [address] Sep, [facility] [address] [id number] [place] [address] August, [facility] [address] [id number] [place] [address] August, [facility] [address] [id number] [place] [address] August, [facility] [address] [id number] [place] [address] August, [facility] [address] [id number] [place] [address] Jul, [facility] [id number] [place] [address] Jul, [facility] [address] [id number] [place] [address] Jun, [facility] [address] [id number] [place] [address] May, [facility] [address] [id number] [place] [address] May, [facility] [address] [id number] [place] [address] 18 May, 2012 [facility] [address] [id number] [place] [address] 15 May, 2012 [facility] [address] [id number] [facility] [address] May, [facility] [address] [id number] [facility] [place] [address] May, [facility] [address] [id number] [place] [address] May, [facility] [address] [id number] [place] [address] August, [facility] [address] [id number] [place] [address] Jul, [facility] [address] [id number] [place] [address] Jul, [facility] [address] [id number] [place] [address] May, [facility] [address] [id number] [place] [address] May, [facility] [address] [id number] [place] [address] Mar, [facility] [address] [id number] [place] [address] Sep, [facility] [address] [id number] [place] [address] 16 Jul, 2009 [facility] [address] [id number] [place] [address] 07 Mar, 2009 [facility] [address] [id number] [place] [address] Feb, [facility] [address] [id number] [place] [address] Feb, IMMUNIZATIONS No Known Immunizations SOCIAL HISTORY [...]
--- OUTSIDE RECORDS SUMMARY | 2019-11-11 02:34 | XMS REPORT ---
Author Author Teddy Elkins Doctor Organization [facility] Address Unknown Phone Unavailable Care Team Providers Care Sharepoint Designer Developer Name Role Phone Migration, Doctor Unavailable Unavailable PROBLEMS Type Condition ICD9-CM Code APF52-SC Code Onset Dates Condition S tatus SNOMED Code Problem Type 2 diabetes mellitus without complications E11 .9 Active 125175889 Problem Essential (primary) hypertension I10 Active 50986637 Problem Type 2 diabetes mellitus with foot ulcer E11.621 Active 288988876 Problem Atherosclerotic heart diseas e of [place] coronary artery without angina pectoris I25.10 Active 445499053098564 Problem Controlled type 2 diabetes m ellitus without complication, without long- term current use of insulin E11.9 Active 230772840 Problem Neuropathy G62.9 Active 607867260 Problem Seasonal allergic rhinitis due to other allergic trigger J30.89 Active 544875740 Problem Bilateral tinnitus H93.13 Active 4 372815527807 Problem Type 2 diabetes mellitus with hyperglycemia E11.65 Active 860408185597195 Problem Type 2 diabetes 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.49 Active 71595530 Problem Observed sleep apnea G47.30 Active 11633809 Problem Other elevated white blood cell (WBC) count D72.82 8 Active 687757600 Problem Tinnitus of both ears H93.13 Active 5220487477017 Problem Hypertension, benign I10 Active 11708737 Problem Tinnitus of left ear H93.12 Active 6777029352486 Problem Elevated white blood cell count, unspecified D72.8 29 Active 869670698 Problem Type 2 diabetes mellitus wit h diabetic neuropathy, without long-term current use of insulin E11.40 Active 06474 006 Problem Cerebrovascular accident (CVA) due to em bolism of other cerebral artery I63.49 Active 103266322 Problem Altered mental status R41.82 Active 048170095 Problem Gastroesophageal reflux disease with esophagitis K 21.0 Active 260247287 ALLERGIES No Information ENCOUNTERS Encounter Location Date Diagnosis [facility] [place] [address] [id number] [place] [address] Jul, [facility] [place] [id number] [place] [address] Jun, [facility] [place] [id number] [place] [address] May, [facility] [place] [id number] [place] [address] May, Type 2 diabetes mellitus without complic ations E11.9 [facility] [place] [id number] [place] [address] Mar, Neuropathy G62.9 [facility] [place] [id number] [place] [address] Mar, [facility] [place] [address] [address] Dec, [facility] [place] [id number] [place] [address] Nov, Actinic keratoses L57.0 [facility] [place] [address] [address] Nov, [facility] [place] [id number] [place] [address] Nov, Type 2 diabetes mellitus without complic ations E11.9 [facility] [place] [id number] [place] [address] Oct, Controlled type 2 diabetes mellitus with out complication, without long-term current use of insulin E11.9 [facility] [place] [id number] [place] [address] Oct, [facility] [place] [address] [address] Oct, [facility] [place] [address] [address] Oct, Controlled type 2 diabetes mellitus with out complication, without long-term current use of insulin E11.9 [facility] [place] [address] [address] Oct, Essential (primary) hypertension I10 ; T ype 2 diabetes mellitus without complications E11.9 ; Actinic keratoses L57.0 and Seborrheic keratoses L82.1 [facility] [place] [address] [address] Oct, [facility] [place] [address] [address] Sep, Hypertension, benign I10 and Controlled type 2 diabetes mellitus without complication, without long-term current use of insulin E11.9 [facility] [place] [address] [address] Sep, Other elevated white blood cell (WBC) co unt D72.828 [place] [place] [address] [address] August, Neuropathy G62.9 [place] [address] [address] August, Other elevated white blood cell (WBC) co unt D72.828 [place] [address] [address] August, Type 2 diabetes mellitus with foot ulcer E11.621 [facility] [place] [address] [address] Jul, [place] [address] [address] Jul, Neuropathy G62.9 [facility] [place] [address] [address] Jun, [facility] [place] [address] [address] Jun, Neuropathy G62.9 [facility] [place] [address] [address] May, Neuropathy G62.9 [facility] [place] [address] [address] Mar, Type 2 diabetes mellitus without complic ations E11.9 [place] [address] [address] 30 Feb, 2018 Neuropathy G62.9 [place] [address] [address] 13 Feb, 2018 Actinic keratoses L57.0 [place] [address] [address] 09 Feb, 2018 Type 2 diabetes mellitus without complic ations E11.9 ; Tobacco abuse Z72.0 ; Tobacco abuse counseling Z71.6 and Atherosclerotic heart disease of [place] coronary artery without angina pectoris I25.10 [place] [address] [address] 08 Feb, 2018 Type 2 diabetes mellitus without complic ations E11.9 ; Tobacco abuse Z72.0 ; Tobacco abuse counseling Z71.6 ; Atherosclerotic heart disease of [place] coronary artery without angina pectoris I25.10 ; Seborrheic keratoses L82.1 and Gastroesophageal reflux disease with esophagitis K21.0 [facility] [id number] [place] [address] Jan, Abscess L02.91 [place] [address] [address] 23 Jan, 2018 Neuropathy G62.9 [place] [address] [address] 20 Dec, 2017 Neuropathy G62.9 ; Cerebrovascular accid ent (CVA) due to embolism of other cerebral artery I63.49 and Seasonal allergic rhinitis due to other allergic trigger J30.89 [facility] [id number] [place] [address] 10 Dec, 2017 Altered mental status R41.82 [place] [address] [address] 16 Nov, 2017 Type 2 diabetes mellitus with diabetic n europathy, without long-term current use of insulin E11.40 [place] [address] [address] Oct, Neuropathy G62.9 ; Type 2 diabetes melli tus with other diabetic neurological complication E11.49 ; Type 2 diabetes mellitus with hyperglycemia E11.65 ; Actinic keratoses L57.0 and Observed sleep apnea G47.30 [place] [address] [id number] Sep, Tinnitus of both ears H93.13 and Actinic keratitis, unspecified laterality H16.139 [place] [address] [id number] August, Type 2 diabetes mellitus without complic ations E11.9 and Controlled type 2 diabetes mellitus without complication, without long-term current use of insulin E11.9 [place] [address] [id number] August, Seborrheic keratoses L82.1 and Tinnitus of left ear H93.12 [place] [address] [address] Jul, Controlled type 2 diabetes mellitus with out complication, without long-term current use of insulin E11.9 ; Seborrheic keratoses L82.1 ; Bilateral tinnitus H93.13 and Seasonal allergic rhinitis due to other allergic trigger J30.89 [facility] [address] [id number] May, Encounter for dental examination Z01.20 [facility] [address] [id number] Jan, Encounter for dental examination Z01.20 [place] [address] [place] [id number] Jan, Type 2 diabetes mellitus without complic ations E11.9 and Acute non- recurrent maxillary sinusitis J01.00 [facility] [address] [facility] [id number] [address] [place] [address] Dec, Right ear impacted cerumen H 61.21 and Acute suppurative otitis media of right ear without spontaneous rupture of tympanic membrane, recurrence not specified H66.001 [place] [address] [address] Nov, Type 2 diabetes mellitus without complic ations E11.9 and Neuropathy G62.9 [facility] [address] [id number] Oct, Encounter for dental examination Z01.20 [facility] [address] [id number] Jun, Dental examination Z01.20 [facility] [place] [address] [address] 16 Jun, 2016 Atherosclerotic heart disease of [place] coronary artery without angina pectoris I25.10 [facility] [place] [address] [address] 15 Jun, 2016 Atherosclerotic heart disease of [place] coronary artery without angina pectoris I25.10 [facility] [place] [address] [address] Jun, Type 2 diabetes mellitus without complic ations E11.9 [facility] [address] [id number] May, Encounter for dental examination Z01.20 [facility] [address] [id number] Apr, Dental caries K02.9 [facility] [address] [id number] Apr, Dental examination Z01.20 [facility] [place] [address] [address] Dec, Type 2 diabetes mellitus without complic ations E11.9 ; custodial current use of insulin Z79.4 ; Essential (primary) hypertension I10 and Elevated white blood cell count, unspecified D72.829 [place] [address] [address] Jul, Diabetes mellitus without mention of com plication, type II or unspecified type, not stated as uncontrolled 250.00 [place] [address] [address] Jul, [facility] [place] [address] [facility] [place] [address] 07 Jan, 2015 Encounter for immunization Z23 [facility] [address] [facility] [place] [id number] Dec, Dental examination V72.2 [facility] [place] [address] [facility] [place] [address] 07 Nov, 2014 Cancer of lung, upper lobe 162.3 [facility] [place] [id number] [place] [address] Sep, Lung cancer 162.9 ; CAD (coronary artery disease) 414.00 and Depression 311 [facility] [place] [id number] [place] [address] 14 Jul, 2014 [facility] [place] [id number] [place] [address] Jul, [facility] [place] [id number] [place] [address] Jun, [facility] [place] [id number] [place] [address] Jun, [facility] [place] [id number] [place] [address] Mar, [facility] [place] [id number] [place] [address] Mar, [facility] [place] [id number] [place] [address] Jan, [facility] [place] [id number] [place] [address] Jan, [facility] [place] [id number] [place] [address] Jan, [facility] [place] [id number] [place] [address] Jan, [facility] [place] [id number] [place] [address] Jan, [facility] [place] [id number] [place] [address] Jan, [facility] [place] [facility] [address] [facility] [id number] [place] [address] Dec, [facility] [place] [facility] [address] [id number] [place] [address] Dec, [facility] [place] [facility] [address] [id number] [place] [address] Oct, [facility] [place] [facility] [address] [id number] [place] [address] Oct, [facility] [place] [facility] [address] [id number] [place] [address] Sep, [facility] [place] [facility] [address] [id number] [place] [address] Sep, [facility] [place] [facility] [address] [id number] [place] [address] August, [facility] [place] [facility] [address] [id number] [place] [address] August, [facility] [place] [facility] [address] [id number] [place] [address] August, [facility] [place] [facility] [address] [id number] [place] [address] August, [facility] [place] [facility] [address] [id number] [place] [address] August, [facility] [place] [facility] [address] [id number] [place] [address] August, [facility] [place] [facility] [address] [id number] [place] [address] Jun, [facility] [place] [facility] [address] [id number] [place] [address] Jun, [facility] [place] [facility] [address] [id number] [place] [address] May, [facility] [place] [facility] [address] [id number] [place] [address] May, [facility] [place] [facility] [address] [id number] [place] [address] May, [facility] [place] [facility] [address] [id number] [place] [address] May, [facility] [place] [facility] [address] [id number] [place] [address] Apr, [facility] [place] [facility] [id number] [place] [address] Apr, [facility] [place] [facility] [address] [id number] [place] [address] Mar, [facility] [place] [facility] [id number] [place] [address] Mar, [facility] [place] [facility] [id number] [place] [address] Mar, [facility] [place] [facility] [id number] [place] [address] Mar, [facility] [place] [facility] [id number] [place] [address] Mar, [facility] [place] [facility] [id number] [place] [address] Mar, [facility] [place] [facility] [id number] [place] [address] Mar, [facility] [place] [facility] [id number] [place] [address] Mar, [facility] [place] [facility] [address] [id number] [place] [address] Mar, [facility] [place] [facility] [address] [id number] [place] [address] Feb, [facility] [place] [facility] [id number] [place] [address] Feb, [facility] [place] [facility] [address] [id number] [place] [address] 24 Jan, 2013 [facility] [place] [facility] [id number] [place] [address] Jan, [facility] [place] [facility] [address] [facility] [id number] [place] [address] Jan, [facility] [place] [facility] [address] [facility] [id number] [place] [address] Jan, [facility] [place] [facility] [address] [id number] [place] [address] Jan, [facility] [place] [facility] [address] [id number] [place] [address] Dec, [facility] [place] [facility] [address] [facility] [id number] [place] [address] Nov, [facility] [place] [facility] [address] [id number] [place] [address] Nov, [facility] [place] [facility] [address] [id number] [place] [address] Nov, [facility] [place] [facility] [address] [id number] [place] [address] Oct, [facility] [place] [facility] [address] [id number] [place] [address] Oct, [facility] [place] [facility] [address] [id number] [place] [address] Sep, [facility] [place] [facility] [address] [id number] [place] [address] Sep, [facility] [place] [facility] [address] [id number] [place] [address] August, [facility] [place] [facility] [address] [id number] [place] [address] August, [facility] [place] [facility] [address] [id number] [place] [address] August, [facility] [place] [facility] [address] [id number] [place] [address] August, [facility] [place] [facility] [address] [id number] [place] [address] Jul, [facility] [place] [facility] [address] [id number] [place] [address] 15 Jul, 2012 [facility] [address] [id number] [place] [address] Jun, [facility] [place] [facility] [address] [id number] [place] [address] May, [facility] [place] [facility] [address] [id number] [place] [address] May, [facility] [place] [facility] [address] [id number] [place] [address] 18 May, 2012 [facility] [place] [facility] [address] [id number] [place] [address] 15 May, 2012 [facility] [place] [facility] [address] [id number] [place] [address] May, [facility] [place] [facility] [address] [id number] [place] [address] May, [facility] [place] [facility] [address] [id number] [place] [address] May, [facility] [place] [facility] [address] [id number] [place] [address] August, [facility] [place] [facility] [address] [id number] [place] [address] 23 Jul, 2011 [facility] [place] [facility] [address] [id number] [place] [address] Jul, [facility] [place] [facility] [address] [id number] [place] [address] May, [facility] [place] [facility] [address] [id number] [place] [address] May, [facility] [place] [facility] [id number] [place] [address] Mar, [facility] [place] [facility] [address] [id number] [place] [address] Sep, [facility] [place] [facility] [address] [id number] [place] [address] Jul, [facility] [place] [address] [facility] [id number] [place] [address] Mar, [facility] [place] [address] [facility] [id number] [place] [address] Feb, [facility] [place] [address] [facility] [id number] [place] [address] Feb, IMMUNIZATIONS No Known Immunizations SOCIAL HISTORY Never Assessed REASON FOR VISIT PLAN OF CARE VITAL SIGNS MEDICATIONS Unknown Medications RESULTS No Results PROCEDURES Procedure Date Ordered Result Body Site LIPID PANEL Jun 09, 2013 COMPREHEN METABOLIC PANEL Jun 09, 2013 VENIPUNCT, ROUTINE* Jun 09, 2013 INSTRUCTIONS MEDICATIONS ADMINISTERED No Known Medications [...]
--- OUTSIDE RECORDS SUMMARY | 2019-11-11 02:34 | XMS REPORT ---
Author Author Teddy RIGGS Organization [facility] Address [address] [place] [address] Care Team Providers Care Milling/Polishing Operator Name Role Phone ONEILJAYE Unavailable PROBLEMS Type Condition ICD9-CM Code HYS53-WP Code Onset Dates Condition S tatus SNOMED Code Problem Type 2 diabetes mellitus without complications E11 .9 Active 903352946 Problem Essential (primary) hypertension I10 Active 19747622 Problem Type 2 diabetes mellitus with foot ulcer E11.621 Active 627977825 Problem Atherosclerotic heart diseas e of [place] coronary artery without angina pectoris I25.10 Active 183258305071324 Problem Controlled type 2 diabetes m ellitus without complication, without long- term current use of insulin E11.9 Active 897074181 Problem Neuropathy G62.9 Active 639243465 Problem Seasonal allergic rhinitis due to other allergic trigger J30.89 Active 517051951 Problem Bilateral tinnitus H93.13 Active 4 708381593460 Problem Type 2 diabetes mellitus with hyperglycemia E11.65 Active 266311874163503 Problem Type 2 diabetes 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.49 Active 57235342 Problem Observed sleep apnea G47.30 Active 98222674 Problem Other elevated white blood cell (WBC) count D72.82 8 Active 464644363 Problem Tinnitus of both ears H93.13 Active 6588064913362 Problem Hypertension, benign I10 Active 27844876 Problem Tinnitus of left ear H93.12 Active 3413675121579 Problem Elevated white blood cell count, unspecified D72.8 29 Active 410258008 Problem Type 2 diabetes mellitus wit h diabetic neuropathy, without long-term current use of insulin E11.40 Active 69717 006 Problem Cerebrovascular accident (CVA) due to em bolism of other cerebral artery I63.49 Active 102603317 Problem Altered mental status R41.82 Active 130743264 Problem Gastroesophageal reflux disease with esophagitis K 21.0 Active 527122154 ALLERGIES No Information ENCOUNTERS Encounter Location Date Diagnosis [facility] [address] [address] Mar, Neuropathy G62.9 [facility] [address] [address] Mar, [facility] [address] [address] Dec, [facility] [address] [address] Nov, Actinic keratoses L57.0 [facility] [address] [address] Nov, [facility] [address] [address] Nov, Type 2 diabetes mellitus without complic ations E11.9 [place] [address] [address] Oct, Controlled type 2 diabetes mellitus with out complication, without long-term current use of insulin E11.9 [facility] [address] [address] Oct, [facility] [address] [address] Oct, [facility] [address] [address] Oct, Controlled type 2 diabetes mellitus with out complication, without long-term current use of insulin E11.9 [place] [address] [address] Oct, Essential (primary) hypertension I10 ; T ype 2 diabetes mellitus without complications E11.9 ; Actinic keratoses L57.0 and Seborrheic keratoses L82.1 [facility] [address] [address] Oct, [facility] [address] [address] Sep, Hypertension, benign I10 and Controlled type 2 diabetes mellitus without complication, without long-term current use of insulin E11.9 [facility] [address] [place] [id number] [place] [address] Sep, Other elevated white blood cell (WBC) co unt D72.828 [facility] [address] [address] August, Neuropathy G62.9 [facility] [address] [address] August, Other elevated white blood cell (WBC) co unt D72.828 [place] [address] [address] August, Type 2 diabetes mellitus with foot ulcer E11.621 [facility] [address] [address] Jul, [facility] [address] [address] Jul, Neuropathy G62.9 [facility] [address] [address] Jun, [facility] [address] [address] Jun, Neuropathy G62.9 [facility] [address] [address] May, Neuropathy G62.9 [facility] [address] [address] Mar, Type 2 diabetes mellitus without complic ations E11.9 [facility] [address] [address] Feb, Neuropathy G62.9 [facility] [address] [address] Feb, Actinic keratoses L57.0 [facility] [address] [address] Feb, Type 2 diabetes mellitus without complic ations E11.9 ; Tobacco abuse Z72.0 ; Tobacco abuse counseling Z71.6 and Atherosclerotic heart disease of [place] coronary artery without angina pectoris I25.10 [place] [id number] 08 Feb, 2018 Type 2 diabetes mellitus without complic ations E11.9 ; Tobacco abuse Z72.0 ; Tobacco abuse counseling Z71.6 ; Atherosclerotic heart disease of [place] coronary artery without angina pectoris I25.10 ; Seborrheic keratoses L82.1 and Gastroesophageal reflux disease with esophagitis K21.0 [facility] [address] [address] Jan, Abscess L02.91 [place] [address] Jan, Neuropathy G62.[address] [address] 20 Dec, 2017 Neuropathy G62.9 ; Cerebrovascular accid ent (CVA) due to embolism of other cerebral artery I63.49 and Seasonal allergic rhinitis due to other allergic trigger J30.89 [facility] [address] [place] [address] 10 Dec, 2017 Altered mental status R41.[address] [address] 16 Nov, 2017 Type 2 diabetes mellitus with diabetic n europathy, without long-term current use of insulin E11.[address] [address] 17 Oct, 2017 Neuropathy G62.9 ; Type 2 diabetes melli tus with other diabetic neurological complication E11.49 ; Type 2 diabetes mellitus with hyperglycemia E11.65 ; Actinic keratoses L57.0 and Observed sleep apnea G47.[address] [address] 19 Sep, 2017 Tinnitus of both ears H93.13 and Actinic keratitis, unspecified laterality H16.[address] [place] [address] August, Type 2 diabetes mellitus without complic ations E11.9 and Controlled type 2 diabetes mellitus without complication, without long-term current use of insulin E11.9 [facility] [address] [address] August, Seborrheic keratoses L82.1 and Tinnitus of left ear H93.12 [facility] [address] [address] Jul, Controlled type 2 diabetes mellitus with out complication, without long-term current use of insulin E11.9 ; Seborrheic keratoses L82.1 ; Bilateral tinnitus H93.13 and Seasonal allergic rhinitis due to other allergic trigger J30.89 [place] [address] [id number] May, Encounter for dental examination Z01.20 [facility] [address] [id number] Jan, Encounter for dental examination Z01.20 [facility] [address] [address] Jan, Type 2 diabetes mellitus without complic ations E11.9 and Acute non- recurrent maxillary sinusitis J01.00 [facility] [address] [facility] [id number] [place] [address] Dec, Right ear impacted cerumen H 61.21 and Acute suppurative otitis media of right ear without spontaneous rupture of tympanic membrane, recurrence not specified H66.001 [facility] [address] [address] Nov, Type 2 diabetes mellitus without complic ations E11.9 and Neuropathy G62.9 [place] [address] [id number] Oct, Encounter for dental examination Z01.20 [facility] [address] [id number] Jun, Dental examination Z01.20 [facility] [address] [address] 16 Jun, 2016 Atherosclerotic heart disease of [place] coronary artery without angina pectoris I25.10 [place] [address] [address] 15 Jun, 2016 Atherosclerotic heart disease of [place] coronary artery without angina pectoris I25.10 [place] [address] [address] 13 Jun, 2016 Type 2 diabetes mellitus without complic ations E11.9 [facility] [address] [id number] 28 May, 2016 Encounter for dental examination Z01.20 [facility] [address] [id number] Apr, Dental caries K02.9 [facility] [address] [place] [id number] 03 Apr, 2016 Dental examination Z01.20 [place] [address] [address] 08 Dec, 2015 Type 2 diabetes mellitus without complic ations E11.9 ; 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 ; Essential (primary) hypertension I10 and Elevated white blood cell count, unspecified D72.[address] [address] Jul, Diabetes mellitus without mention of com plication, type II or unspecified type, not stated as uncontrolled 250.[address] [address] Jul, [address] [address] Jan, Encounter for immunization Z23 [place] [address] [id number] Dec, Dental examination V72.[address] [address] 07 Nov, 2014 Cancer of lung, upper lobe 162.[address] [id number] [place] [address] Sep, Lung cancer 162.9 ; CAD (coronary artery disease) 414.00 and Depression 311 [facility] [address] [id number] [place] [address] 14 Jul, 2014 [facility] [address] [place] [id number] [place] [address] Jul, [facility] [address] [place] [id number] [place] [address] Jun, [facility] [address] [id number] [place] [address] Jun, [facility] [address] [place] [id number] [place] [address] Mar, [facility] [address] [place] [id number] [place] [address] Mar, [facility] [address] [place] [id number] [place] [address] Jan, [facility] [address] [place] [id number] [place] [address] Jan, [facility] [address] [place] [id number] [place] [address] Jan, [facility] [address] [place] [id number] [place] [address] Jan, [facility] [address] [place] [id number] [place] [address] Jan, [facility] [address] [id number] [place] [address] Jan, [facility] [address] [place] [id number] [place] [address] Dec, [facility] [address] [place] [id number] [place] [address] Dec, [facility] [address] [place] [id number] [place] [address] Oct, [facility] [address] [id number] [place] [address] Oct, [facility] [address] [facility] [id number] [place] [address] Sep, [facility] [address] [id number] [place] [address] Sep, [facility] [address] [id number] [place] [address] August, [facility] [address] [id number] [place] [address] August, [facility] [address] [id number] [place] [address] August, [facility] [address] [id number] [place] [address] August, [facility] [address] [id number] [place] [address] August, [facility] [address] [id number] [place] [address] August, [facility] [address] [id number] [place] [address] Jun, [facility] [address] [id number] [place] [address] Jun, [facility] [address] [id number] [place] [address] May, [facility] [address] [id number] [place] [address] May, [facility] [address] [id number] [place] [address] May, [facility] [address] [id number] [place] [address] May, [facility] [address] [id number] [place] [address] Apr, [facility] [address] [id number] [place] [address] Apr, [facility] [address] [id number] [place] [address] Mar, [facility] [address] [id number] [place] [address] Mar, [facility] [address] [id number] [place] [address] Mar, [facility] [address] [id number] [place] [address] Mar, [facility] [address] [id number] [place] [address] Mar, [facility] [address] [id number] [place] [address] Mar, [facility] [address] [id number] [place] [address] Mar, [facility] [address] [place] [id number] [place] [address] Mar, [facility] [address] [id number] [place] [address] Mar, [facility] [address] [place] [id number] [place] [address] Feb, [facility] [address] [id number] [place] [address] Feb, [facility] [address] [id number] [place] [address] Jan, [facility] [address] [id number] [place] [address] Jan, [facility] [address] [id number] [place] [address] Jan, [facility] [address] [id number] [place] [address] Jan, [facility] [address] [id number] [place] [address] Jan, [facility] [address] [id number] [place] [address] Dec, [facility] [address] [id number] [facility] [place] [address] Nov, [facility] [address] [id number] [place] [address] Nov, [facility] [address] [id number] [place] [address] Nov, [facility] [address] [id number] [place] [address] Oct, [facility] [address] [id number] [place] [address] Oct, [facility] [address] [id number] [place] [address] Sep, [facility] [address] [id number] [place] [address] Sep, [facility] [address] [id number] [place] [address] August, [facility] [address] [id number] [place] [address] August, [facility] [address] [id number] [place] [address] August, [facility] [address] [id number] [place] [address] August, [facility] [address] [id number] [place] [address] Jul, [facility] [address] [id number] [place] [address] Jul, [facility] [address] [id number] [place] [address] Jun, [facility] [address] [id number] [place] [address] May, [facility] [address] [id number] [place] [address] May, [facility] [address] [id number] [place] [address] 18 May, 2012 [facility] [address] [place] [id number] [place] [address] May, [facility] [address] [id number] [place] [address] May, [facility] [address] [place] [id number] [place] [address] May, [facility] [address] [id number] [place] [address] May, [facility] [address] [place] [id number] [place] [address] August, [facility] [address] [place] [id number] [place] [address] Jul, [facility] [address] [place] [id number] [place] [address] Jul, [facility] [address] [place] [id number] [place] [address] May, [facility] [address] [place] [id number] [place] [address] May, [facility] [address] [place] [id number] [place] [address] Mar, [facility] [address] [place] [id number] [place] [address] Sep, [facility] [address] [place] [id number] [place] [address] 16 Jul, 2009 [facility] [address] [place] [id number] [place] [address] Mar, [facility] [address] [place] [id number] [place] [address] Feb, [facility] [address] [place] [id number] [place] [address] Feb, IMMUNIZATIONS No Known Immunizations SOCIAL HISTORY [...]
--- OUTSIDE RECORDS SUMMARY | 2019-11-11 02:35 | XMS REPORT ---
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 Active 217576621897302 Problem Controlled type 2 diabetes m ellitus without complication, without long- term current use of insulin E11.9 Active 858943823 Problem Neuropathy G62.9 Active 751789516 Problem Seasonal allergic rhinitis due to other allergic trigger J30.89 Active 448314661 Problem Bilateral tinnitus H93.13 Active 4 787447857877 Problem Type 2 diabetes mellitus with hyperglycemia E11.65 Active 150680980384517 Problem Type 2 diabetes 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.49 Active 12060694 Problem Observed sleep apnea G47.30 Active 17686238 Problem Other elevated white blood cell (WBC) count D72.82 8 Active 455238041 Problem Tinnitus of both ears H93.13 Active 1500817878111 Problem Hypertension, benign I10 Active 71315520 Problem Tinnitus of left ear H93.12 Active 4904457630736 Problem Elevated white blood cell count, unspecified D72.8 29 Active 143043497 Problem Type 2 diabetes mellitus wit h diabetic neuropathy, without long-term current use of insulin E11.40 Active 37147 006 Problem Cerebrovascular accident (CVA) due to em bolism of other cerebral artery I63.49 Active 693992973 Problem Altered mental status R41.82 Active 367437162 Problem Gastroesophageal reflux disease with esophagitis K 21.0 Active 605809405 ALLERGIES No Information ENCOUNTERS Encounter Location Date Diagnosis [facility] [address] [address] Mar, Neuropathy G62.9 [facility] [address] [address] Mar, [facility] [address] [address] Dec, [facility] [address] [address] Nov, Actinic keratoses L57.0 [facility] [address] [address] Nov, [facility] [address] [address] Nov, Type 2 diabetes mellitus without complic ations E11.9 [place] [address] [address] Oct, Controlled type 2 diabetes mellitus with out complication, without long-term current use of insulin E11.9 [facility] [address] [address] Oct, [facility] [address] [address] Oct, [facility] [address] [address] Oct, Controlled type 2 diabetes mellitus with out complication, without long-term current use of insulin E11.9 [place] [address] [address] Oct, Essential (primary) hypertension I10 ; T ype 2 diabetes mellitus without complications E11.9 ; Actinic keratoses L57.0 and Seborrheic keratoses L82.1 [facility] [address] [address] Oct, [facility] [address] [address] Sep, Hypertension, benign I10 and Controlled type 2 diabetes mellitus without complication, without long-term current use of insulin E11.9 [facility] [address] [place] [id number] [place] [address] Sep, Other elevated white blood cell (WBC) co unt D72.828 [facility] [address] [address] August, Neuropathy G62.9 [facility] [address] [address] August, Other elevated white blood cell (WBC) co unt D72.828 [place] [address] [address] August, Type 2 diabetes mellitus with foot ulcer E11.621 [facility] [address] [address] Jul, [facility] [address] [address] Jul, Neuropathy G62.9 [facility] [address] [address] Jun, [facility] [address] [address] Jun, Neuropathy G62.9 [facility] [address] [address] May, Neuropathy G62.9 [facility] [address] [address] Mar, Type 2 diabetes mellitus without complic ations E11.9 [facility] [address] [address] Feb, Neuropathy G62.9 [facility] [address] [address] Feb, Actinic keratoses L57.0 [facility] [address] [address] Feb, Type 2 diabetes mellitus without complic ations E11.9 ; Tobacco abuse Z72.0 ; Tobacco abuse counseling Z71.6 and Atherosclerotic heart disease of stebbins coronary artery without angina pectoris I25.10 [place] [id number] 08 Feb, 2018 Type 2 diabetes mellitus without complic ations E11.9 ; Tobacco abuse Z72.0 ; Tobacco abuse counseling Z71.6 ; Atherosclerotic heart disease of stebbins coronary artery without angina pectoris I25.10 ; Seborrheic keratoses L82.1 and Gastroesophageal reflux disease with esophagitis K21.0 [facility] [address] [address] Jan, Abscess L02.91 [place] [address] Jan, Neuropathy G62.[address] [address] 20 Dec, 2017 Neuropathy G62.9 ; Cerebrovascular accid ent (CVA) due to embolism of other cerebral artery I63.49 and Seasonal allergic rhinitis due to other allergic trigger J30.89 [facility] [address] [place] [address] 10 Dec, 2017 Altered mental status R41.[address] [address] 16 Nov, 2017 Type 2 diabetes mellitus with diabetic n europathy, without long-term current use of insulin E11.[address] [address] 17 Oct, 2017 Neuropathy G62.9 ; Type 2 diabetes melli tus with other diabetic neurological complication E11.49 ; Type 2 diabetes mellitus with hyperglycemia E11.65 ; Actinic keratoses L57.0 and Observed sleep apnea G47.[address] [address] 19 Sep, 2017 Tinnitus of both ears H93.13 and Actinic keratitis, unspecified laterality H16.[address] [place] [address] August, Type 2 diabetes mellitus without complic ations E11.9 and Controlled type 2 diabetes mellitus without complication, without long-term current use of insulin E11.9 [facility] [address] [address] August, Seborrheic keratoses L82.1 and Tinnitus of left ear H93.12 [facility] [address] [address] Jul, Controlled type 2 diabetes mellitus with out complication, without long-term current use of insulin E11.9 ; Seborrheic keratoses L82.1 ; Bilateral tinnitus H93.13 and Seasonal allergic rhinitis due to other allergic trigger J30.89 [place] [address] [id number] May, Encounter for dental examination Z01.20 [facility] [address] [id number] Jan, Encounter for dental examination Z01.20 [facility] [address] [address] Jan, Type 2 diabetes mellitus without complic ations E11.9 and Acute non- recurrent maxillary sinusitis J01.00 [facility] [address] [facility] [id number] [place] [address] Dec, Right ear impacted cerumen H 61.21 and Acute suppurative otitis media of right ear without spontaneous rupture of tympanic membrane, recurrence not specified H66.001 [facility] [address] [address] Nov, Type 2 diabetes mellitus without complic ations E11.9 and Neuropathy G62.9 [place] [address] [id number] Oct, Encounter for dental examination Z01.20 [facility] [address] [id number] Jun, Dental examination Z01.20 [facility] [address] [address] 16 Jun, 2016 Atherosclerotic heart disease of stebbins coronary artery without angina pectoris I25.10 [place] [address] [address] 15 Jun, 2016 Atherosclerotic heart disease of stebbins coronary artery without angina pectoris I25.10 [place] [address] [address] 13 Jun, 2016 Type 2 diabetes mellitus without complic ations E11.9 [facility] [address] [id number] 28 May, 2016 Encounter for dental examination Z01.20 [facility] [address] [id number] Apr, Dental caries K02.9 [facility] [address] [place] [id number] 03 Apr, 2016 Dental examination Z01.20 [place] [address] [address] 08 Dec, 2015 Type 2 diabetes mellitus without complic ations E11.9 ; 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 ; Essential (primary) hypertension I10 and Elevated white blood cell count, unspecified D72.[address] [address] Jul, Diabetes mellitus without mention of com plication, type II or unspecified type, not stated as uncontrolled 250.[address] [address] Jul, [address] [address] Jan, Encounter for immunization Z23 [place] [address] [id number] Dec, Dental examination V72.[address] [address] 07 Nov, 2014 Cancer of lung, upper lobe 162.[address] [id number] [place] [address] Sep, Lung cancer 162.9 ; CAD (coronary artery disease) 414.00 and Depression 311 [facility] [address] [id number] [place] [address] 14 Jul, 2014 [facility] [address] [place] [id number] [place] [address] Jul, [facility] [address] [place] [id number] [place] [address] Jun, [facility] [address] [id number] [place] [address] Jun, [facility] [address] [place] [id number] [place] [address] Mar, [facility] [address] [place] [id number] [place] [address] Mar, [facility] [address] [place] [id number] [place] [address] Jan, [facility] [address] [place] [id number] [place] [address] Jan, [facility] [address] [place] [id number] [place] [address] Jan, [facility] [address] [place] [id number] [place] [address] Jan, [facility] [address] [place] [id number] [place] [address] Jan, [facility] [address] [id number] [place] [address] Jan, [facility] [address] [place] [address] [id number] [place] [address] Dec, [facility] [address] [place] [id number] [place] [address] Dec, [facility] [address] [place] [id number] [place] [address] Oct, [facility] [address] [id number] [place] [address] Oct, [facility] [address] [facility] [id number] [place] [address] Sep, [facility] [address] [id number] [place] [address] Sep, [facility] [address] [id number] [place] [address] August, [facility] [address] [id number] [place] [address] August, [facility] [address] [id number] [place] [address] August, [facility] [address] [id number] [place] [address] August, [facility] [address] [id number] [place] [address] August, [facility] [address] [id number] [place] [address] August, [facility] [address] [id number] [place] [address] Jun, [facility] [address] [id number] [place] [address] Jun, [facility] [address] [id number] [place] [address] May, [facility] [address] [id number] [place] [address] May, [facility] [address] [id number] [place] [address] May, [facility] [address] [id number] [place] [address] May, [facility] [address] [id number] [place] [address] Apr, [facility] [address] [id number] [place] [address] Apr, [facility] [address] [id number] [place] [address] Mar, [facility] [address] [id number] [place] [address] Mar, [facility] [address] [id number] [place] [address] Mar, [facility] [address] [id number] [place] [address] Mar, [facility] [address] [id number] [place] [address] Mar, [facility] [address] [id number] [place] [address] Mar, [facility] [address] [id number] [place] [address] Mar, [facility] [address] [place] [id number] [place] [address] Mar, [facility] [address] [id number] [place] [address] Mar, [facility] [address] [place] [id number] [place] [address] Feb, [facility] [address] [id number] [place] [address] Feb, [facility] [address] [id number] [place] [address] Jan, [facility] [address] [id number] [place] [address] Jan, [facility] [address] [id number] [place] [address] Jan, [facility] [address] [id number] [place] [address] Jan, [facility] [address] [id number] [place] [address] Jan, [facility] [address] [id number] [place] [address] Dec, [facility] [address] [id number] [place] [address] Nov, [facility] [address] [id number] [place] [address] Nov, [facility] [address] [id number] [place] [address] Nov, [facility] [address] [id number] [place] [address] Oct, [facility] [address] [id number] [place] [address] Oct, [facility] [address] [id number] [place] [address] Sep, [facility] [address] [id number] [place] [address] Sep, [facility] [address] [id number] [place] [address] August, [facility] [address] [id number] [place] [address] August, [facility] [address] [id number] [place] [address] August, [facility] [address] [id number] [place] [address] August, [facility] [address] [id number] [place] [address] Jul, [facility] [address] [id number] [place] [address] Jul, [facility] [address] [id number] [place] [address] Jun, [facility] [address] [id number] [place] [address] May, [facility] [address] [id number] [place] [address] May, [facility] [address] [id number] [place] [address] 18 May, 2012 [facility] [address] [place] [id number] [place] [address] May, [facility] [address] [id number] [place] [address] May, [facility] [address] [place] [id number] [place] [address] May, [facility] [address] [id number] [place] [address] May, [facility] [address] [place] [address] [id number] [place] [address] August, [facility] [address] [place] [id number] [place] [address] Jul, [facility] [address] [place] [address] [id number] [place] [address] Jul, [facility] [address] [place] [address] [id number] [place] [address] May, [facility] [address] [place] [id number] [place] [address] May, [facility] [address] [place] [address] [id number] [place] [address] Mar, [facility] [address] [place] [address] [id number] [place] [address] Sep, [facility] [address] [place] [id number] [place] [address] 16 Jul, 2009 [facility] [address] [place] [id number] [place] [address] Mar, [facility] [address] [place] [id number] [place] [address] Feb, [facility] [address] [place] [id number] [place] [address] Feb, IMMUNIZATIONS No Known Immunizations SOCIAL HISTORY Never Assessed REASON FOR VISIT PLAN OF CARE VITAL SIGNS MEDICATIONS Unknown Medications RESULTS No Results PROCEDURES Procedure Date Ordered Result Body Site LIPID PANEL September 17, 2013 COMPREHEN METABOLIC PANEL September 17, 2013 VENIPUNCT, ROUTINE* September 17, 2013 INSTRUCTIONS MEDICATIONS ADMINISTERED No Known Medications [...]
--- OUTSIDE RECORDS SUMMARY | 2019-11-11 02:35 | XMS REPORT ---
Author Author Teddy Elkins Doctor Organization [facility] Address Unknown Phone Unavailable Care Team Providers Care English Adjunct Faculty Name Role Phone Migration, Doctor Unavailable Unavailable PROBLEMS Type Condition ICD9-CM Code WHS92-GU Code Onset Dates Condition S tatus SNOMED Code Problem Type 2 diabetes mellitus without complications E11 .9 Active 808835333 Problem Essential (primary) hypertension I10 Active 05352051 Problem Type 2 diabetes mellitus with foot ulcer E11.621 Active 276741151 Problem Atherosclerotic heart diseas e of [place] coronary artery without angina pectoris I25.10 Active 611677644676514 Problem Controlled type 2 diabetes m ellitus without complication, without long- term current use of insulin E11.9 Active 600405821 Problem Neuropathy G62.9 Active 227732089 Problem Seasonal allergic rhinitis due to other allergic trigger J30.89 Active 079177041 Problem Bilateral tinnitus H93.13 Active 4 052840439715 Problem Type 2 diabetes mellitus with hyperglycemia E11.65 Active 048715022626585 Problem Type 2 diabetes 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.49 Active 81706214 Problem Observed sleep apnea G47.30 Active 79069796 Problem Other elevated white blood cell (WBC) count D72.82 8 Active 747901787 Problem Tinnitus of both ears H93.13 Active 2822384414061 Problem Hypertension, benign I10 Active 13710107 Problem Tinnitus of left ear H93.12 Active 8139837296231 Problem Elevated white blood cell count, unspecified D72.8 29 Active 749440376 Problem Type 2 diabetes mellitus wit h diabetic neuropathy, without long-term current use of insulin E11.40 Active 50757 006 Problem Cerebrovascular accident (CVA) due to em bolism of other cerebral artery I63.49 Active 454657016 Problem Altered mental status R41.82 Active 597120212 Problem Gastroesophageal reflux disease with esophagitis K 21.0 Active 394631549 ALLERGIES No Information ENCOUNTERS Encounter Location Date Diagnosis [facility] [address] [id number] [place] [address] Mar, Neuropathy G62.9 [facility] [id number] [place] [address] Mar, [facility] [address] [address] Dec, [facility] [id number] [place] [address] Nov, Actinic keratoses L57.0 [facility] [address] [address] Nov, [facility] [address] [address] Nov, Type 2 diabetes mellitus without complic ations E11.9 [facility] [address] [address] Oct, Controlled type 2 diabetes mellitus with out complication, without long-term current use of insulin E11.9 [place] [id number] [place] [address] Oct, [facility] [address] [address] Oct, [facility] [address] [address] Oct, Controlled type 2 diabetes mellitus with out complication, without long-term current use of insulin E11.9 [place] [address] [address] Oct, Essential (primary) hypertension I10 ; T ype 2 diabetes mellitus without complications E11.9 ; Actinic keratoses L57.0 and Seborrheic keratoses L82.1 [facility] [address] [address] Oct, [facility] [address] [address] Sep, Hypertension, benign I10 and Controlled type 2 diabetes mellitus without complication, without long-term current use of insulin E11.9 [facility] [address] [address] Sep, Other elevated white blood cell (WBC) co unt D72.828 [facility] [address] [address] August, Neuropathy G62.9 [facility] [address] [address] August, Other elevated white blood cell (WBC) co unt D72.828 [facility] [address] [address] August, Type 2 diabetes mellitus with foot ulcer E11.621 [place] [address] [address] Jul, [facility] [address] [address] Jul, Neuropathy G62.9 [place] [address] [address] Jun, [facility] [address] [address] Jun, Neuropathy G62.9 [place] [address] [address] May, Neuropathy G62.9 [place] [address] [address] Mar, Type 2 diabetes mellitus without complic ations E11.9 [facility] [address] [address] Feb, Neuropathy G62.9 [facility] [address] [address] Feb, Actinic keratoses L57.0 [facility] [address] [address] Feb, Type 2 diabetes mellitus without complic ations E11.9 ; Tobacco abuse Z72.0 ; Tobacco abuse counseling Z71.6 and Atherosclerotic heart disease of [place] coronary artery without angina pectoris I25.10 [place] [address] [address] 08 Feb, 2018 Type 2 diabetes mellitus without complic ations E11.9 ; Tobacco abuse Z72.0 ; Tobacco abuse counseling Z71.6 ; Atherosclerotic heart disease of [place] coronary artery without angina pectoris I25.10 ; Seborrheic keratoses L82.1 and Gastroesophageal reflux disease with esophagitis K21.0 [facility] [address] [address] Jan, Abscess L02.91 [place] [address] [address] Jan, Neuropathy G62.[address] [address] 20 Dec, 2017 Neuropathy G62.9 ; Cerebrovascular accid ent (CVA) due to embolism of other cerebral artery I63.49 and Seasonal allergic rhinitis due to other allergic trigger J30.89 [facility] [place] [address] [address] 10 Dec, 2017 Altered mental status R41.[address] [address] 16 Nov, 2017 Type 2 diabetes mellitus with diabetic n europathy, without long-term current use of insulin E11.[address] [address] Oct, Neuropathy G62.9 ; Type 2 diabetes melli tus with other diabetic neurological complication E11.49 ; Type 2 diabetes mellitus with hyperglycemia E11.65 ; Actinic keratoses L57.0 and Observed sleep apnea G47.[address] [address] Sep, Tinnitus of both ears H93.13 and Actinic keratitis, unspecified laterality H16.[address] [address] August, Type 2 diabetes mellitus without complic ations E11.9 and Controlled type 2 diabetes mellitus without complication, without long-term current use of insulin E11.9 [facility] [address] [address] August, Seborrheic keratoses L82.1 and Tinnitus of left ear H93.12 [facility] [address] [address] Jul, Controlled type 2 diabetes mellitus with out complication, without long-term current use of insulin E11.9 ; Seborrheic keratoses L82.1 ; Bilateral tinnitus H93.13 and Seasonal allergic rhinitis due to other allergic trigger J30.[address] [id number] May, Encounter for dental examination Z01.20 [facility] [address] [id number] Jan, Encounter for dental examination Z01.20 [place] [address] [address] Jan, Type 2 diabetes mellitus without complic ations E11.9 and Acute non- recurrent maxillary sinusitis J01.00 [facility] IN [facility] [address] [facility] [id number] [place] [address] Dec, Right ear impacted cerumen H 61.21 and Acute suppurative otitis media of right ear without spontaneous rupture of tympanic membrane, recurrence not specified H66.001 [facility] [address] [address] Nov, Type 2 diabetes mellitus without complic ations E11.9 and Neuropathy G62.9 [facility] [address] [id number] Oct, Encounter for dental examination Z01.20 [facility] [address] [id number] Jun, Dental examination Z01.20 [facility] [address] [address] Jun, Atherosclerotic heart disease of [place] coronary artery without angina pectoris I25.10 [facility] [address] [address] 15 Jun, 2016 Atherosclerotic heart disease of [place] coronary artery without angina pectoris I25.10 [facility] [address] [address] 13 Jun, 2016 Type 2 diabetes mellitus without complic ations E11.9 [facility] [address] [id number] May, Encounter for dental examination Z01.20 [facility] [address] [id number] Apr, Dental caries K02.9 [facility] [address] [place] [id number] Apr, Dental examination Z01.20 [place] [address] [address] 08 Dec, 2015 Type 2 diabetes mellitus without complic ations E11.9 ; 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 ; Essential (primary) hypertension I10 and Elevated white blood cell count, unspecified D72.[address] [address] Jul, Diabetes mellitus without mention of com plication, type II or unspecified type, not stated as uncontrolled 250.[address] [address] Jul, [address] [address] Jan, Encounter for immunization Z23 [facility] [address] [id number] Dec, Dental examination V72.2 [place] [address] [address] Nov, Cancer of lung, upper lobe 162.[address] [address] Sep, Lung cancer 162.9 ; CAD (coronary artery disease) 414.00 and Depression [address] [facility] [id number] [place] [address] 14 Jul, 2014 [facility] [id number] [place] [address] Jul, [facility] [id number] [place] [address] Jun, [facility] [id number] [place] [address] Jun, [facility] [id number] [place] [address] Mar, [facility] [id number] [place] [address] Mar, [facility] [id number] [place] [address] Jan, [facility] [id number] [place] [address] Jan, [facility] [id number] [place] [address] Jan, [facility] [id number] [place] [address] Jan, [facility] [id number] [place] [address] Jan, [facility] [id number] [place] [address] Jan, [facility] [id number] [place] [address] Dec, [facility] [id number] [place] [address] Dec, [facility] [id number] [place] [address] Oct, [facility] [id number] [place] [address] Oct, [facility] [address] [id number] [place] [address] Sep, [facility] [address] [id number] [place] [address] Sep, [facility] [address] [id number] [place] [address] August, [facility] [address] [id number] [place] [address] August, [facility] [address] [id number] [place] [address] August, [facility] [address] [id number] [place] [address] August, [facility] [address] [id number] [place] [address] August, [facility] [address] [id number] [place] [address] August, [facility] [address] [id number] [place] [address] Jun, [facility] [address] [id number] [place] [address] Jun, [facility] [address] [id number] [place] [address] May, [facility] [address] [id number] [place] [address] May, [facility] [address] [id number] [place] [address] May, [facility] [address] [id number] [place] [address] May, [facility] [address] [id number] [place] [address] Apr, [facility] [address] [id number] [place] [address] Apr, [facility] [address] [id number] [place] [address] Mar, [facility] [address] [id number] [place] [address] Mar, [facility] [address] [id number] [place] [address] Mar, [facility] [address] [id number] [place] [address] Mar, [facility] [address] [id number] [place] [address] Mar, [facility] [address] [id number] [place] [address] Mar, [facility] [address] [id number] [place] [address] Mar, [facility] [address] [id number] [place] [address] Mar, [facility] [address] [id number] [place] [address] Mar, [facility] [address] [id number] [place] [address] Feb, [facility] [id number] [place] [address] Feb, [facility] [address] [id number] [place] [address] Jan, [facility] [id number] [place] [address] Jan, [facility] [address] [id number] [place] [address] Jan, [facility] [id number] [place] [address] Jan, [facility] [address] [id number] [place] [address] Jan, [facility] [address] [id number] [place] [address] Dec, [facility] [id number] [place] [address] Nov, [facility] [address] [id number] [place] [address] Nov, [facility] [address] [id number] [place] [address] Nov, [facility] [address] [id number] [place] [address] Oct, [facility] [address] [id number] [place] [address] Oct, [facility] [address] [id number] [place] [address] Sep, [facility] [address] [id number] [place] [address] Sep, [facility] [address] [id number] [place] [address] August, [facility] [address] [id number] [place] [address] August, [facility] [address] [id number] [place] [address] August, [facility] [address] [id number] [place] [address] August, [facility] [address] [id number] [place] [address] Jul, [facility] [address] [id number] [place] [address] Jul, [facility] [address] [id number] [place] [address] Jun, [facility] [address] [id number] [place] [address] May, [facility] [address] [id number] [place] [address] May, [facility] [address] [id number] [place] [address] 18 May, 2012 [facility] [address] [id number] [place] [address] May, [facility] [address] [id number] [place] [address] May, [facility] [address] [id number] [place] [address] May, [facility] [id number] [place] [address] May, [facility] [id number] [place] [address] August, [facility] [id number] [place] [address] Jul, [facility] [id number] [place] [address] Jul, [facility] [id number] [place] [address] May, [facility] [id number] [place] [address] May, [facility] [id number] [place] [address] Mar, [facility] [id number] [place] [address] Sep, [facility] [id number] [place] [address] Jul, [facility] [id number] [place] [address] Mar, [facility] [id number] [place] [address] Feb, [facility] [id number] [place] [address] Feb, IMMUNIZATIONS No Known Immunizations SOCIAL HISTORY Never Assessed REASON FOR VISIT PLAN OF CARE VITAL SIGNS Height 71 in 2013-09-24 Weight 201.3 lbs 2013-09-24 Heart Rate 16 bpm 2013-09-24 Respiratory Rate 18 2013-09-24 Blood pressure systolic 124 mmHg 2013-09-24 Blood pressure diastolic 74 mmHg 2013-09-24 MEDICATIONS Unknown Medications RESULTS No Results PROCEDURES Procedure Date Ordered Result Body Site MEASURE BLOOD OXYGEN LEVEL September 24, 2013 INSTRUCTIONS MEDICATIONS ADMINISTERED No Known Medications [...]
--- OUTSIDE RECORDS SUMMARY | 2019-11-11 02:35 | XMS REPORT ---
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 Name Role Phone DARSHAN RODRIGUEZ Unavailable PROBLEMS Type Condition ICD9-CM Code SQW41-TZ Code Onset Dates Condition S tatus SNOMED Code Problem Type 2 diabetes mellitus without complications E11 .9 Active 262361820 Problem Essential (primary) hypertension I10 Active 22324012 Problem Type 2 diabetes mellitus with foot ulcer E11.621 Active 882060641 Problem Atherosclerotic heart diseas e of [place] coronary artery without angina pectoris I25.10 Active 968162901794187 Problem Controlled type 2 diabetes m ellitus without complication, without long- term current use of insulin E11.9 Active 989260888 Problem Neuropathy G62.9 Active 147388597 Problem Seasonal allergic rhinitis due to other allergic trigger J30.89 Active 241908412 Problem Bilateral tinnitus H93.13 Active 4 571445955158 Problem Type 2 diabetes mellitus with hyperglycemia E11.65 Active 897451324002770 Problem Type 2 diabetes 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.49 Active 91034874 Problem Observed sleep apnea G47.30 Active 80697492 Problem Other elevated white blood cell (WBC) count D72.82 8 Active 366674610 Problem Tinnitus of both ears H93.13 Active 8972273541954 Problem Hypertension, benign I10 Active 37151824 Problem Tinnitus of left ear H93.12 Active 2235765109906 Problem Elevated white blood cell count, unspecified D72.8 29 Active 239538548 Problem Type 2 diabetes mellitus wit h diabetic neuropathy, without long-term current use of insulin E11.40 Active 22424 006 Problem Cerebrovascular accident (CVA) due to em bolism of other cerebral artery I63.49 Active 383532129 Problem Altered mental status R41.82 Active 362922647 Problem Gastroesophageal reflux disease with esophagitis K 21.0 Active 556871710 ALLERGIES No Information ENCOUNTERS Encounter Location Date Diagnosis [place] [address] [address] Mar, Neuropathy G62.9 [place] [address] [address] Mar, [facility] [address] [address] Dec, [place] [address] [address] Nov, Actinic keratoses L57.0 [place] [address] [address] Nov, [place] [address] [address] Nov, Type 2 diabetes mellitus without complic ations E11.9 [place] [address] [address] Oct, Controlled type 2 diabetes mellitus with out complication, without long-term current use of insulin E11.9 [place] [address] [address] Oct, [place] [address] [address] Oct, [place] [address] [address] Oct, Controlled type 2 diabetes mellitus with out complication, without long-term current use of insulin E11.9 [place] [address] [address] Oct, Essential (primary) hypertension I10 ; T ype 2 diabetes mellitus without complications E11.9 ; Actinic keratoses L57.0 and Seborrheic keratoses L82.1 [place] [address] [address] Oct, [place] [address] [address] Sep, Hypertension, benign I10 and Controlled type 2 diabetes mellitus without complication, without long-term current use of insulin E11.9 [facility] [address] [address] Sep, Other elevated white blood cell (WBC) co unt D72.828 [facility] [address] [address] August, Neuropathy G62.9 [facility] [address] [address] August, Other elevated white blood cell (WBC) co unt D72.828 [place] [address] [address] August, Type 2 diabetes mellitus with foot ulcer E11.621 [facility] [address] [address] Jul, [facility] [address] [address] Jul, Neuropathy G62.9 [facility] [address] [address] Jun, [facility] [address] [address] Jun, Neuropathy G62.9 [facility] [address] [address] May, Neuropathy G62.9 [facility] [address] [address] Mar, Type 2 diabetes mellitus without complic ations E11.9 [facility] [address] [address] Feb, Neuropathy G62.9 [facility] [address] [address] Feb, Actinic keratoses L57.0 [facility] [address] [address] Feb, Type 2 diabetes mellitus without complic ations E11.9 ; Tobacco abuse Z72.0 ; Tobacco abuse counseling Z71.6 and Atherosclerotic heart disease of [place] coronary artery without angina pectoris I25.10 [place] [address] [address] 08 Feb, 2018 Type 2 diabetes mellitus without complic ations E11.9 ; Tobacco abuse Z72.0 ; Tobacco abuse counseling Z71.6 ; Atherosclerotic heart disease of [place] coronary artery without angina pectoris I25.10 ; Seborrheic keratoses L82.1 and Gastroesophageal reflux disease with esophagitis K21.0 [facility] [address] [address] Jan, Abscess L02.91 [place] [address] [address] Jan, Neuropathy G62.[address] [address] 20 Dec, 2017 Neuropathy G62.9 ; Cerebrovascular accid ent (CVA) due to embolism of other cerebral artery I63.49 and Seasonal allergic rhinitis due to other allergic trigger J30.89 [facility] [address] [place] [address] 10 Dec, 2017 Altered mental status R41.[address] [address] 16 Nov, 2017 Type 2 diabetes mellitus with diabetic n europathy, without long-term current use of insulin E11.[address] [address] 17 Oct, 2017 Neuropathy G62.9 ; Type 2 diabetes melli tus with other diabetic neurological complication E11.49 ; Type 2 diabetes mellitus with hyperglycemia E11.65 ; Actinic keratoses L57.0 and Observed sleep apnea G47.[address] [address] 19 Sep, 2017 Tinnitus of both ears H93.13 and Actinic keratitis, unspecified laterality H16.139 [place] [id number] [place] [address] August, Type 2 diabetes mellitus without complic ations E11.9 and Controlled type 2 diabetes mellitus without complication, without long-term current use of insulin E11.9 [facility] [address] [address] August, Seborrheic keratoses L82.1 and Tinnitus of left ear H93.12 [place] [address] [address] Jul, Controlled type 2 diabetes mellitus with out complication, without long-term current use of insulin E11.9 ; Seborrheic keratoses L82.1 ; Bilateral tinnitus H93.13 and Seasonal allergic rhinitis due to other allergic trigger J30.[address] [id number] May, Encounter for dental examination Z01.[address] [id number] Jan, Encounter for dental examination Z01.20 [place] [address] [address] Jan, Type 2 diabetes mellitus without complic ations E11.9 and Acute non- recurrent maxillary sinusitis J01.00 [facility] [address] [facility] [id number] [address] [place] [address] Dec, Right ear impacted cerumen H 61.21 and Acute suppurative otitis media of right ear without spontaneous rupture of tympanic membrane, recurrence not specified H66.001 [facility] [address] [address] Nov, Type 2 diabetes mellitus without complic ations E11.9 and Neuropathy G62.[address] [id number] Oct, Encounter for dental examination Z01.20 [facility] [address] [id number] Jun, Dental examination Z01.20 [facility] [address] [address] 16 Jun, 2016 Atherosclerotic heart disease of [place] coronary artery without angina pectoris I25.10 [place] [address] [address] 15 Jun, 2016 Atherosclerotic heart disease of [place] coronary artery without angina pectoris I25.10 [place] [address] [address] 13 Jun, 2016 Type 2 diabetes mellitus without complic ations E11.9 [facility] [address] [id number] May, Encounter for dental examination Z01.20 [facility] [address] [id number] Apr, Dental caries K02.9 [facility] [address] [place] [id number] 03 Apr, 2016 Dental examination Z01.20 [place] [address] [address] 08 Dec, 2015 Type 2 diabetes mellitus without complic ations E11.9 ; group home current use of insulin Z79.4 ; Essential (primary) hypertension I10 and Elevated white blood cell count, unspecified D72.[address] [address] Jul, Diabetes mellitus without mention of com plication, type II or unspecified type, not stated as uncontrolled 250.[address] [address] Jul, [address] [address] 07 Jan, 2015 Encounter for immunization Z23 [facility] [address] [id number] Dec, Dental examination V72.[address] [address] Nov, Cancer of lung, upper lobe 162.3 [facility] [address] [id number] [place] [address] Sep, Lung cancer 162.9 ; CAD (coronary artery disease) 414.00 and Depression 311 [facility] [place] [facility] [address] [id number] [place] [address] 14 Jul, 2014 [facility] [address] [place] [id number] [place] [address] Jul, [facility] [place] [facility] [address] [place] [id number] [place] [address] Jun, [facility] [place] [facility] [address] [place] [id number] [place] [address] Jun, [facility] [place] [facility] [address] [place] [id number] [place] [address] Mar, [facility] [address] [place] [id number] [place] [address] Mar, [facility] [place] [facility] [address] [place] [id number] [place] [address] Jan, [facility] [place] [facility] [address] [place] [id number] [place] [address] Jan, [facility] [place] [facility] [address] [place] [id number] [place] [address] Jan, [facility] [place] [facility] [address] [place] [id number] [place] [address] Jan, [facility] [place] [facility] [address] [place] [id number] [place] [address] Jan, [facility] [place] [facility] [address] [id number] [place] [address] Jan, [facility] [place] [facility] [address] [place] [id number] [place] [address] Dec, [facility] [place] [facility] [address] [place] [id number] [place] [address] Dec, [facility] [place] [facility] [address] [place] [id number] [place] [address] Oct, [facility] [place] [facility] [address] [id number] [place] [address] Oct, [facility] [place] [facility] [address] [id number] [place] [address] Sep, [facility] [place] [facility] [address] [id number] [place] [address] Sep, [facility] [place] [facility] [address] [id number] [place] [address] August, [facility] [place] [facility] [address] [id number] [place] [address] August, [facility] [place] [facility] [address] [id number] [place] [address] August, [facility] [place] [facility] [address] [id number] [place] [address] August, [facility] [place] [facility] [address] [id number] [place] [address] August, [facility] [place] [facility] [address] [id number] [place] [address] August, [facility] [place] [facility] [address] [id number] [place] [address] Jun, [facility] [place] [facility] [address] [id number] [place] [address] Jun, [facility] [place] [facility] [address] [id number] [place] [address] May, [facility] [place] [facility] [address] [id number] [place] [address] May, [facility] [place] [facility] [address] [id number] [place] [address] May, [facility] [place] [facility] [address] [id number] [place] [address] May, [facility] [place] [facility] [address] [id number] [place] [address] Apr, [facility] [place] [facility] [address] [id number] [place] [address] Apr, [facility] [place] [facility] [address] [id number] [place] [address] Mar, [facility] [place] [facility] [address] [id number] [place] [address] Mar, [facility] [place] [facility] [address] [id number] [place] [address] Mar, [facility] [place] [facility] [address] [id number] [place] [address] Mar, [facility] [place] [facility] [address] [id number] [place] [address] Mar, [facility] [place] [facility] [address] [id number] [place] [address] Mar, [facility] [place] [facility] [address] [id number] [place] [address] Mar, [facility] [place] [facility] [address] [id number] [place] [address] Mar, [facility] [place] [facility] [address] [id number] [place] [address] Mar, [facility] [place] [facility] [address] [id number] [place] [address] Feb, [facility] [place] [facility] [address] [id number] [place] [address] Feb, [facility] [place] [facility] [address] [id number] [place] [address] Jan, [facility] [place] [facility] [address] [id number] [place] [address] Jan, [facility] [place] [facility] [address] [id number] [place] [address] Jan, [facility] [place] [facility] [address] [id number] [place] [address] Jan, [facility] [place] [facility] [address] [id number] [place] [address] Jan, [facility] [place] [facility] [address] [place] [id number] [place] [address] Dec, [facility] [place] [facility] [address] [id number] [place] [address] Nov, [facility] [place] [facility] [address] [id number] [place] [address] Nov, [facility] [place] [facility] [address] [id number] [place] [address] Nov, [facility] [place] [facility] [address] [id number] [place] [address] Oct, [facility] [place] [facility] [address] [id number] [place] [address] Oct, [facility] [place] [facility] [address] [id number] [place] [address] Sep, [facility] [place] [facility] [address] [id number] [place] [address] Sep, [facility] [place] [facility] [address] [place] [id number] [place] [address] August, [facility] [place] [facility] [address] [id number] [place] [address] August, [facility] [place] [facility] [address] [id number] [place] [address] August, [facility] [place] [facility] [address] [id number] [place] [address] August, [facility] [place] [facility] [address] [id number] [place] [address] Jul, [facility] [place] [facility] [address] [id number] [place] [address] Jul, [facility] [place] [facility] [address] [place] [id number] [place] [address] Jun, [facility] [place] [facility] [address] [id number] [place] [address] May, [facility] [place] [facility] [address] [place] [id number] [place] [address] May, [facility] [address] [id number] [place] [address] 18 May, 2012 [facility] [address] [id number] [place] [address] 15 May, 2012 [facility] [address] [id number] [place] [address] May, [facility] [address] [id number] [place] [address] May, [facility] [address] [id number] [place] [address] May, [facility] [address] [id number] [place] [address] August, [facility] [address] [id number] [place] [address] Jul, [facility] [address] [place] [id number] [place] [address] Jul, [facility] [address] [id number] [place] [address] May, [facility] [address] [place] [id number] [place] [address] May, [facility] [address] [id number] [place] [address] Mar, [facility] [address] [place] [id number] [place] [address] Sep, [facility] [address] [id number] [place] [address] 16 Jul, 2009 [facility] [address] [id number] [place] [address] Mar, [facility] [address] [id number] [place] [address] Feb, [facility] [address] [id number] [place] [address] Feb, IMMUNIZATIONS No Known Immunizations SOCIAL HISTORY [...]
--- OUTSIDE RECORDS SUMMARY | 2019-11-11 02:35 | XMS REPORT ---
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 Name Role Phone ONEILJAYE Unavailable PROBLEMS Type Condition ICD9-CM Code [id number] Code Onset Dates Condition S tatus SNOMED Code Problem Type 2 diabetes mellitus without complications E11 .9 Active 428490588 Problem Essential (primary) hypertension I10 Active 64109865 Problem Type 2 diabetes mellitus with foot ulcer E11.621 Active 847028155 Problem Atherosclerotic heart diseas e of [place] coronary artery without angina pectoris I25.10 Active 641745655534307 Problem Controlled type 2 diabetes m ellitus without complication, without long- term current use of insulin E11.9 Active 067017634 Problem Neuropathy G62.9 Active 603737446 Problem Seasonal allergic rhinitis due to other allergic trigger J30.89 Active 785444414 Problem Bilateral tinnitus H93.13 Active 4 976373788064 Problem Type 2 diabetes mellitus with hyperglycemia E11.65 Active 419817695869718 Problem Type 2 diabetes 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.49 Active 96626356 Problem Observed sleep apnea G47.30 Active 21665765 Problem Other elevated white blood cell (WBC) count D72.82 8 Active 679985567 Problem Tinnitus of both ears H93.13 Active 2378610021199 Problem Hypertension, benign I10 Active 77212379 Problem Tinnitus of left ear H93.12 Active 5082548532238 Problem Elevated white blood cell count, unspecified D72.8 29 Active 536077537 Problem Type 2 diabetes mellitus wit h diabetic neuropathy, without long-term current use of insulin E11.40 Active 28647 006 Problem Cerebrovascular accident (CVA) due to em bolism of other cerebral artery I63.49 Active 140820012 Problem Altered mental status R41.82 Active 642636852 Problem Gastroesophageal reflux disease with esophagitis K 21.0 Active 211814099 ALLERGIES No Information ENCOUNTERS Encounter Location Date Diagnosis [facility] [address] [address] Mar, Neuropathy G62.9 [facility] [address] [address] Mar, [facility] [address] [address] Dec, [facility] [address] [address] Nov, Actinic keratoses L57.0 [facility] [address] [address] Nov, [facility] [address] [address] Nov, Type 2 diabetes mellitus without complic ations E11.9 [place] [address] [address] Oct, Controlled type 2 diabetes mellitus with out complication, without long-term current use of insulin E11.9 [facility] [address] [address] Oct, [facility] [address] [address] Oct, [facility] [address] [address] Oct, Controlled type 2 diabetes mellitus with out complication, without long-term current use of insulin E11.9 [place] [address] [address] Oct, Essential (primary) hypertension I10 ; T ype 2 diabetes mellitus without complications E11.9 ; Actinic keratoses L57.0 and Seborrheic keratoses L82.1 [facility] [address] [address] Oct, [facility] [address] [address] Sep, Hypertension, benign I10 and Controlled type 2 diabetes mellitus without complication, without long-term current use of insulin E11.9 [facility] [address] [place] [id number] [place] [address] Sep, Other elevated white blood cell (WBC) co unt D72.828 [facility] [address] [address] August, Neuropathy G62.9 [facility] [address] [address] August, Other elevated white blood cell (WBC) co unt D72.828 [place] [address] [address] August, Type 2 diabetes mellitus with foot ulcer E11.621 [facility] [address] [address] Jul, [facility] [address] [address] Jul, Neuropathy G62.9 [facility] [address] [address] Jun, [facility] [address] [address] Jun, Neuropathy G62.9 [facility] [address] [address] May, Neuropathy G62.9 [facility] [address] [address] Mar, Type 2 diabetes mellitus without complic ations E11.9 [facility] [address] [address] Feb, Neuropathy G62.9 [facility] [address] [address] Feb, Actinic keratoses L57.0 [facility] [address] [address] Feb, Type 2 diabetes mellitus without complic ations E11.9 ; Tobacco abuse Z72.0 ; Tobacco abuse counseling Z71.6 and Atherosclerotic heart disease of [place] coronary artery without angina pectoris I25.10 [place] [id number] 08 Feb, 2018 Type 2 diabetes mellitus without complic ations E11.9 ; Tobacco abuse Z72.0 ; Tobacco abuse counseling Z71.6 ; Atherosclerotic heart disease of [place] coronary artery without angina pectoris I25.10 ; Seborrheic keratoses L82.1 and Gastroesophageal reflux disease with esophagitis K21.0 [facility] [address] [address] Jan, Abscess L02.91 [place] [address] Jan, Neuropathy G62.[address] [address] 20 Dec, 2017 Neuropathy G62.9 ; Cerebrovascular accid ent (CVA) due to embolism of other cerebral artery I63.49 and Seasonal allergic rhinitis due to other allergic trigger J30.89 [facility] [address] [place] [address] 10 Dec, 2017 Altered mental status R41.[address] [address] 16 Nov, 2017 Type 2 diabetes mellitus with diabetic n europathy, without long-term current use of insulin E11.[address] [address] 17 Oct, 2017 Neuropathy G62.9 ; Type 2 diabetes melli tus with other diabetic neurological complication E11.49 ; Type 2 diabetes mellitus with hyperglycemia E11.65 ; Actinic keratoses L57.0 and Observed sleep apnea G47.[address] [address] 19 Sep, 2017 Tinnitus of both ears H93.13 and Actinic keratitis, unspecified laterality H16.[address] [place] [address] August, Type 2 diabetes mellitus without complic ations E11.9 and Controlled type 2 diabetes mellitus without complication, without long-term current use of insulin E11.9 [facility] [address] [address] August, Seborrheic keratoses L82.1 and Tinnitus of left ear H93.12 [facility] [address] [address] Jul, Controlled type 2 diabetes mellitus with out complication, without long-term current use of insulin E11.9 ; Seborrheic keratoses L82.1 ; Bilateral tinnitus H93.13 and Seasonal allergic rhinitis due to other allergic trigger J30.89 [place] [address] [id number] May, Encounter for dental examination Z01.20 [facility] [address] [id number] Jan, Encounter for dental examination Z01.20 [facility] [address] [address] Jan, Type 2 diabetes mellitus without complic ations E11.9 and Acute non- recurrent maxillary sinusitis J01.00 [facility] [address] [facility] [id number] [address] [place] [address] Dec, Right ear impacted cerumen H 61.21 and Acute suppurative otitis media of right ear without spontaneous rupture of tympanic membrane, recurrence not specified H66.001 [facility] [address] [address] Nov, Type 2 diabetes mellitus without complic ations E11.9 and Neuropathy G62.9 [place] [address] [id number] Oct, Encounter for dental examination Z01.20 [facility] [address] [id number] Jun, Dental examination Z01.20 [facility] [address] [address] 16 Jun, 2016 Atherosclerotic heart disease of [place] coronary artery without angina pectoris I25.10 [place] [address] [address] 15 Jun, 2016 Atherosclerotic heart disease of [place] coronary artery without angina pectoris I25.10 [place] [address] [address] 13 Jun, 2016 Type 2 diabetes mellitus without complic ations E11.9 [facility] [address] [id number] 28 May, 2016 Encounter for dental examination Z01.20 [facility] [address] [id number] Apr, Dental caries K02.9 [facility] [address] [place] [id number] 03 Apr, 2016 Dental examination Z01.20 [place] [address] [address] 08 Dec, 2015 Type 2 diabetes mellitus without complic ations E11.9 ; 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 ; Essential (primary) hypertension I10 and Elevated white blood cell count, unspecified D72.[address] [address] Jul, Diabetes mellitus without mention of com plication, type II or unspecified type, not stated as uncontrolled 250.[address] [address] Jul, [address] [address] Jan, Encounter for immunization Z23 [place] [id number] [id number] Dec, Dental examination V72.[address] [address] 07 Nov, 2014 Cancer of lung, upper lobe 162.[address] [id number] [place] [address] Sep, Lung cancer 162.9 ; CAD (coronary artery disease) 414.00 and Depression 311 [facility] [address] [id number] [place] [address] 14 Jul, 2014 [facility] [address] [place] [id number] [place] [address] Jul, [facility] [address] [place] [id number] [place] [address] Jun, [facility] [address] [id number] [place] [address] Jun, [facility] [address] [place] [id number] [place] [address] Mar, [facility] [address] [place] [id number] [place] [address] Mar, [facility] [address] [place] [id number] [place] [address] Jan, [facility] [address] [place] [id number] [place] [address] Jan, [facility] [address] [place] [id number] [place] [address] Jan, [facility] [address] [place] [id number] [place] [address] Jan, [facility] [address] [place] [id number] [place] [address] Jan, [facility] [address] [id number] [place] [address] Jan, [facility] [address] [place] [id number] [place] [address] Dec, [facility] [address] [place] [id number] [place] [address] Dec, [facility] [address] [place] [id number] [place] [address] Oct, [facility] [address] [id number] [place] [address] Oct, [facility] [address] [facility] [id number] [place] [address] Sep, [facility] [address] [id number] [place] [address] Sep, [facility] [address] [id number] [place] [address] August, [facility] [address] [id number] [place] [address] August, [facility] [address] [id number] [place] [address] August, [facility] [address] [id number] [place] [address] August, [facility] [address] [id number] [place] [address] August, [facility] [address] [id number] [place] [address] August, [facility] [address] [id number] [place] [address] Jun, [facility] [address] [id number] [place] [address] Jun, [facility] [address] [id number] [place] [address] May, [facility] [address] [id number] [place] [address] May, [facility] [address] [id number] [place] [address] May, [facility] [address] [id number] [place] [address] May, [facility] [address] [id number] [place] [address] Apr, [facility] [address] [id number] [place] [address] Apr, [facility] [address] [id number] [place] [address] Mar, [facility] [address] [id number] [place] [address] Mar, [facility] [address] [id number] [place] [address] Mar, [facility] [address] [id number] [place] [address] Mar, [facility] [address] [id number] [place] [address] Mar, [facility] [address] [id number] [place] [address] Mar, [facility] [address] [id number] [place] [address] Mar, [facility] [address] [place] [id number] [place] [address] Mar, [facility] [address] [id number] [place] [address] Mar, [facility] [address] [place] [id number] [place] [address] Feb, [facility] [address] [id number] [place] [address] Feb, [facility] [address] [id number] [place] [address] Jan, [facility] [address] [id number] [place] [address] Jan, [facility] [address] [id number] [place] [address] Jan, [facility] [address] [id number] [place] [address] Jan, [facility] [address] [id number] [place] [address] Jan, [facility] [address] [id number] [place] [address] Dec, [facility] [address] [id number] [place] [address] Nov, [facility] [address] [id number] [place] [address] Nov, [facility] [address] [id number] [place] [address] Nov, [facility] [address] [id number] [place] [address] Oct, [facility] [address] [id number] [place] [address] Oct, [facility] [address] [id number] [place] [address] Sep, [facility] [address] [id number] [place] [address] Sep, [facility] [address] [id number] [place] [address] August, [facility] [address] [id number] [place] [address] August, [facility] [address] [id number] [place] [address] August, [facility] [address] [id number] [place] [address] August, [facility] [address] [id number] [place] [address] Jul, [facility] [address] [id number] [place] [address] Jul, [facility] [address] [id number] [place] [address] Jun, [facility] [address] [id number] [place] [address] May, [facility] [address] [id number] [place] [address] May, [facility] [address] [id number] [place] [address] 18 May, 2012 [facility] [address] [id number] [place] [address] May, [facility] [address] [id number] [place] [address] May, [facility] [address] [id number] [place] [address] May, [facility] [address] [id number] [place] [address] May, [facility] [address] [place] [id number] [place] [address] August, [facility] [address] [id number] [place] [address] Jul, [facility] [address] [place] [id number] [place] [address] Jul, [facility] [address] [id number] [place] [address] May, [facility] [address] [place] [id number] [place] [address] May, [facility] [address] [id number] [place] [address] Mar, [facility] [address] [place] [id number] [place] [address] Sep, [facility] [address] [place] [id number] [place] [address] 16 Jul, 2009 [facility] [address] [place] [id number] [place] [address] Mar, [facility] [address] [place] [id number] [place] [address] Feb, [facility] [address] [place] [id number] [place] [address] Feb, IMMUNIZATIONS No Known Immunizations SOCIAL HISTORY Never Assessed REASON FOR VISIT refills PLAN OF CARE VITAL SIGNS MEDICATIONS Medication Instructions Dosage Frequency Start Date End Date Duration S franco Romec-D Allergy & Congestion 5-120 MG Orally Once a day 1 tablet a s needed 24h Jun, 30 day(s) Active RESULTS No Results PROCEDURES [...]
--- OUTSIDE RECORDS SUMMARY | 2019-11-11 02:39 | XMS REPORT | Continuity of Care Document ---
Demographics Preferred Language Unknown Marital Status Unknown Oriental Orthodox Affiliation Unknown Race Unknown Ethnic Group Unknown Author Organization Unknown Address Unknown Phone Unavailable Allergies Active Description Code Type Severity Reaction Onset Reported/Identified Relationship to Patient Clinical Status Yes celery Food Allergy N/A N/A 03/12/2009 Yes celery Food Allergy 03/12/2009 Yes Plavix 75 mg tablet Drug Aller gy N/A N/A 11/01/2012 Yes Brilinta Drug Allergy N/A N/A 03/26/2013 Yes celery [id number] Drug Allergy Unknown N/A 07/28/2016 Yes clopidogrel [id number] Drug Aller gy Unknown NAUSEA 07/28/2016 Yes ticagrelor [id number] Drug Allerg y Unknown NAUSEA 07/28/2016 Yes celery [id number] Drug Allergy Severe ANAPHYLAXIS 03/29/2018 Yes clopidogrel [id number] Drug Aller gy Mild NAUSEA/HIVES 03/29/2018 Yes ticagrelor [id number] Drug Allerg y Mild NAUSEA/HIVES 03/29/2018 Medications There is no data. Problems Date Dx Coded Attending Type Code Diagnosis Diagnosed By 03/22/1299 AKANKSHA FERRO FACC, DELBERT GOEL CCDS Ot Z95.828 PRESENCE OF OTHER VASCULAR IMPLANTS AND 03/22/1344 PAMELA RAMSEY Ot M25.461 EFFUSION, RIGHT KNEE 03/22/1349 ANAYELI KIRKPATRICK APRN Ot M54. 5 LOW BACK PAIN 11/29/2007 272.4 HYPE RLIPIDEMIA UNSPECIFIED 11/29/2007 729.5 PAIN IN LIMB 11/29/2007 JAYE RIGGS APRN 27 2.4 HYPERLIPIDEMIA UNSPECIFIED 11/29/2007 JAYE RIGGS APRN 72 9.5 PAIN IN LIMB 11/29/2007 JAYE RIGGS APRN 27 2.4 HYPERLIPIDEMIA UNSPECIFIED 11/29/2007 JAYE RIGSG APRN 72 9.5 PAIN IN LIMB 11/29/2007 272.4 HYPE RLIPIDEMIA UNSPECIFIED 11/29/2007 729.5 PAIN IN LIMB 11/29/2007 272.4 HYPE RLIPIDEMIA UNSPECIFIED 11/29/2007 729.5 PAIN IN LIMB 11/29/2007 272.4 HYPE RLIPIDEMIA UNSPECIFIED 11/29/2007 729.5 PAIN IN LIMB 11/29/2007 272.4 HYPE RLIPIDEMIA UNSPECIFIED 11/29/2007 729.5 PAIN IN LIMB 11/29/2007 272.4 HYPE RLIPIDEMIA UNSPECIFIED 11/29/2007 729.5 PAIN IN LIMB 11/29/2007 272.4 HYPE RLIPIDEMIA UNSPECIFIED 11/29/2007 729.5 PAIN IN LIMB 11/29/2007 JAYE RIGGS APRN 27 2.4 HYPERLIPIDEMIA UNSPECIFIED 11/29/2007 JAYE RIGGS APRN 72 9.5 PAIN IN LIMB 11/29/2007 DARSHAN RODRIGUEZ MD 272.4 HYPERLIPIDEMIA UNSPECIFIED 11/29/2007 DARSHAN RODRIGUEZ MD 729.5 PAIN IN LIMB 11/29/2007 DARSHAN RODRIGUEZ MD 272.4 HYPERLIPIDEMIA UNSPECIFIED 11/29/2007 DARSHAN RODRIGUEZ MD 729.5 PAIN IN LIMB 11/29/2007 DARSHAN RODRIGUEZ MD 272.4 HYPERLIPIDEMIA UNSPECIFIED 11/29/2007 DARSHAN RODRIGUEZ MD 729.5 PAIN IN LIMB 11/29/2007 JAYE RIGGS APRN 27 2.4 HYPERLIPIDEMIA UNSPECIFIED 11/29/2007 JAYE RIGGS APRN 72 9.5 PAIN IN LIMB 11/29/2007 JAYE RIGGS APRN 27 2.4 HYPERLIPIDEMIA UNSPECIFIED 11/29/2007 JAYE RIGGS APRN 72 9.5 PAIN IN LIMB 11/29/2007 JAYE RIGGS APRN 27 2.4 HYPERLIPIDEMIA UNSPECIFIED 11/29/2007 JAYE RIGGS APRN 72 9.5 PAIN IN LIMB 11/29/2007 ROGER DO, IRMA K 272.4 HYPERLIPIDEMIA UNSPECIFIED 11/29/2007 ROGER DO, IRMA K 729.5 PAIN IN LIMB 11/29/2007 JAYE RIGGS APRN 27 2.4 HYPERLIPIDEMIA UNSPECIFIED 11/29/2007 JAYE RIGGS APRN 72 9.5 PAIN IN LIMB 01/03/2008 719.41 LARA N IN JOINT INVOLVING SHOULDER REGION 01/03/2008 JAYE RIGGS APRN 719.41 PAIN IN JOINT INVOLVING SHOULDER REGION 01/03/2008 JAYE RIGGS APRN 719.41 PAIN IN JOINT INVOLVING SHOULDER REGION 01/03/2008 719.41 LARA N IN JOINT INVOLVING SHOULDER REGION 01/03/2008 719.41 LARA N IN JOINT INVOLVING SHOULDER REGION 01/03/2008 719.41 LARA N IN JOINT INVOLVING SHOULDER REGION 01/03/2008 719.41 LARA N IN JOINT INVOLVING SHOULDER REGION 01/03/2008 719.41 LARA N IN JOINT INVOLVING SHOULDER REGION 01/03/2008 719.41 LARA N IN JOINT INVOLVING SHOULDER REGION 01/03/2008 JAYE RIGGS APRN 719.41 PAIN IN JOINT INVOLVING SHOULDER REGION 01/03/2008 DARSHAN RODRIGUEZ MD 719.4 1 PAIN IN JOINT INVOLVING SHOULDER REGION 01/03/2008 DARSHAN RODRIGUEZ MD 719.4 1 PAIN IN JOINT INVOLVING SHOULDER REGION 01/03/2008 DARSHAN RODRIGUEZ MD 719.4 1 PAIN IN JOINT INVOLVING SHOULDER REGION 01/03/2008 JAYE RIGGS APRN 719.41 PAIN IN JOINT INVOLVING SHOULDER REGION 01/03/2008 JAYE RIGGS APRN 719.41 PAIN IN JOINT INVOLVING SHOULDER REGION 01/03/2008 JAYE RIGGS APRN 719.41 PAIN IN JOINT INVOLVING SHOULDER REGION 01/03/2008 IRMA ROGER DO 719.41 PAIN IN JOINT INVOLVING SHOULDER REGION 01/03/2008 JAYE RIGGS APRN 719.41 PAIN IN JOINT INVOLVING SHOULDER REGION 01/10/2008 305.1 TOBA RUG SCRATCHER ABUSE 01/10/2008 477.9 RHIN ITIS ALLERGIC 01/10/2008 JAYE RIGGS APRN 30 5.1 TOBACCO ABUSE 01/10/2008 JAYE RIGGS APRN 47 7.9 RHINITIS ALLERGIC 01/10/2008 JAYE RIGGS APRN 30 5.1 TOBACCO ABUSE 01/10/2008 JAYE RIGGS APRN 47 7.9 RHINITIS ALLERGIC 01/10/2008 305.1 TOBA RUG SCRATCHER ABUSE 01/10/2008 477.9 RHIN ITIS ALLERGIC 01/10/2008 305.1 TOBA RUG SCRATCHER ABUSE 01/10/2008 477.9 RHIN ITIS ALLERGIC 01/10/2008 305.1 TOBA RUG SCRATCHER ABUSE 01/10/2008 477.9 RHIN ITIS ALLERGIC 01/10/2008 305.1 TOBA RUG SCRATCHER ABUSE 01/10/2008 477.9 RHIN ITIS ALLERGIC 01/10/2008 305.1 TOBA RUG SCRATCHER ABUSE 01/10/2008 477.9 RHIN ITIS ALLERGIC 01/10/2008 305.1 TOBA RUG SCRATCHER ABUSE 01/10/2008 477.9 RHIN ITIS ALLERGIC 01/10/2008 JAYE RIGGS APRN 30 5.1 TOBACCO ABUSE 01/10/2008 JAYE RIGGS APRN 47 7.9 RHINITIS ALLERGIC 01/10/2008 DARSHAN RODRIGUEZ MD 305.1 TOBACCO ABUSE 01/10/2008 DARSHAN RODRIGUEZ MD 477.9 RHINITIS ALLERGIC 01/10/2008 DARSHAN RODRIGUEZ MD 305.1 TOBACCO ABUSE 01/10/2008 DARSHAN RODRIGUEZ MD 477.9 RHINITIS ALLERGIC 01/10/2008 DARSHAN RODRIGUEZ MD 305.1 TOBACCO ABUSE 01/10/2008 DARSHAN RODRIGUEZ MD 477.9 RHINITIS ALLERGIC 01/10/2008 JAYE RIGGS APRN 30 5.1 TOBACCO ABUSE 01/10/2008 JAYE RIGGS APRN 47 7.9 RHINITIS ALLERGIC 01/10/2008 JAYE RIGGS APRN 30 5.1 TOBACCO ABUSE 01/10/2008 JAYE RIGGS APRN 47 7.9 RHINITIS ALLERGIC 01/10/2008 JAYE RIGGS APRN 30 5.1 TOBACCO ABUSE 01/10/2008 JAYE RIGGS APRN 47 7.9 RHINITIS ALLERGIC 01/10/2008 ROGER DO, IRMA K 305.1 TOBACCO ABUSE 01/10/2008 ROGRE DO, IRMA K 477.9 RHINITIS ALLERGIC 01/10/2008 JAYE RIGGS APRN 30 5.1 TOBACCO ABUSE 01/10/2008 JAYE RIGGS APRN 47 7.9 RHINITIS ALLERGIC 01/31/2008 V03.82 PCV 7 PCV23, STREPTOCOCCUS PNEUMONIAE [PNEUMOCOCCUS] 01/31/2008 V04.81 NEE D FOR PROPHYLACTIC VACCINATION AND INOCULATION AGAINST INFLUENZA 01/31/2008 JAEY RIGGS APRN V03.82 PCV7 PCV23, STREPTOCOCCUS PNEUMONIAE [PNEUMOCOCCUS] 01/31/2008 JAYE RIGGS APRN V04.81 NEED FOR PROPHYLACTIC VACCINATION AND INOCULATION AGAI NST INFLUENZA 01/31/2008 JAYE RIGGS APRN V03.82 PCV7 PCV23, STREPTOCOCCUS PNEUMONIAE [PNEUMOCOCCUS] 01/31/2008 JAYE RIGGS APRN V04.81 NEED FOR PROPHYLACTIC VACCINATION AND INOCULATION AGAI NST INFLUENZA 01/31/2008 V03.82 PCV 7 PCV23, STREPTOCOCCUS PNEUMONIAE [PNEUMOCOCCUS] 01/31/2008 V04.81 NEE D FOR PROPHYLACTIC VACCINATION AND INOCULATION AGAINST INFLUENZA 01/31/2008 V03.82 PCV 7 PCV23, STREPTOCOCCUS PNEUMONIAE [PNEUMOCOCCUS] 01/31/2008 V04.81 NEE D FOR PROPHYLACTIC VACCINATION AND INOCULATION AGAINST INFLUENZA 01/31/2008 V03.82 PCV 7 PCV23, STREPTOCOCCUS PNEUMONIAE [PNEUMOCOCCUS] 01/31/2008 V04.81 NEE D FOR PROPHYLACTIC VACCINATION AND INOCULATION AGAINST INFLUENZA 01/31/2008 V03.82 PCV 7 PCV23, STREPTOCOCCUS PNEUMONIAE [PNEUMOCOCCUS] 01/31/2008 V04.81 NEE D FOR PROPHYLACTIC VACCINATION AND INOCULATION AGAINST INFLUENZA 01/31/2008 V03.82 PCV 7 PCV23, STREPTOCOCCUS PNEUMONIAE [PNEUMOCOCCUS] 01/31/2008 V04.81 NEE D FOR PROPHYLACTIC VACCINATION AND INOCULATION AGAINST INFLUENZA 01/31/2008 V03.82 PCV 7 PCV23, STREPTOCOCCUS PNEUMONIAE [PNEUMOCOCCUS] 01/31/2008 V04.81 NEE D FOR PROPHYLACTIC VACCINATION AND INOCULATION AGAINST INFLUENZA 01/31/2008 JAYE RIGGS APRN V03.82 PCV7 PCV23, STREPTOCOCCUS PNEUMONIAE [PNEUMOCOCCUS] 01/31/2008 JAYE RIGGS APRN V04.81 NEED FOR PROPHYLACTIC VACCINATION AND INOCULATION AGAI NST INFLUENZA 01/31/2008 DARSHAN RODRIGUEZ MD V03.8 2 PCV7 PCV23, STREPTOCOCCUS PNEUMONIAE [PNEUMOCOCCUS] 01/31/2008 DARSHAN RODRIGUEZ MD V04.8 1 NEED FOR PROPHYLACTIC VACCINATION AND INOCULATION AGAINST INFLUENZA 01/31/2008 DARSHAN RODRIGUEZ MD V03.8 2 PCV7 PCV23, STREPTOCOCCUS PNEUMONIAE [PNEUMOCOCCUS] 01/31/2008 DARSHAN RODRIGUEZ MD V04.8 1 NEED FOR PROPHYLACTIC VACCINATION AND INOCULATION AGAINST INFLUENZA 01/31/2008 DARSHAN RODRIGUEZ MD V03.8 2 PCV7 PCV23, STREPTOCOCCUS PNEUMONIAE [PNEUMOCOCCUS] 01/31/2008 DARSHAN RODRIGUEZ MD V04.8 1 NEED FOR PROPHYLACTIC VACCINATION AND INOCULATION AGAINST INFLUENZA 01/31/2008 JAYE RIGGS APRN V03.82 PCV7 PCV23, STREPTOCOCCUS PNEUMONIAE [PNEUMOCOCCUS] 01/31/2008 JAYE RIGGS APRN V04.81 NEED FOR PROPHYLACTIC VACCINATION AND INOCULATION AGAI NST INFLUENZA 01/31/2008 JAYE RIGGS APRN V03.82 PCV7 PCV23, STREPTOCOCCUS PNEUMONIAE [PNEUMOCOCCUS] 01/31/2008 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, 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 T V04.81 NEED FOR PROPHYLACTIC VACCINATION AND INOCULATION AGAI NST INFLUENZA 01/31/2008 JAYE RIGGS APRN V03.82 PCV7 PCV23, STREPTOCOCCUS PNEUMONIAE [PNEUMOCOCCUS] 01/31/2008 JAYE RIGGS APRN V04.81 NEED FOR PROPHYLACTIC VACCINATION AND INOCULATION AGAI NST INFLUENZA 01/31/2008 IRMA ROGER DO V03.82 PCV7 PCV23, STREPTOCOCCUS PNEUMONIAE [PNEUMOCOCCUS] 01/31/2008 IRMA ROGER DO V04.81 NEED FOR PROPHYLACTIC VACCINATION AND INOCULATION AGAINST INFLUENZA 01/31/2008 JAYE RIGGS APRN V03.82 PCV7 PCV23, STREPTOCOCCUS PNEUMONIAE [PNEUMOCOCCUS] 01/31/2008 JAYE RIGGS APRN V04.81 NEED FOR PROPHYLACTIC VACCINATION AND INOCULATION AGAI NST INFLUENZA 03/13/2008 840.4 ROTA TOR CUFF (CAPSULE) SPRAIN 03/13/2008 JAYE RIGGS APRN 84 0.4 ROTATOR CUFF (CAPSULE) SPRAIN 03/13/2008 JAYE RIGGS APRN 84 0.4 ROTATOR CUFF (CAPSULE) SPRAIN 03/13/2008 840.4 ROTA TOR CUFF (CAPSULE) SPRAIN 03/13/2008 840.4 ROTA TOR CUFF (CAPSULE) SPRAIN 03/13/2008 840.4 ROTA TOR CUFF (CAPSULE) SPRAIN 03/13/2008 840.4 ROTA TOR CUFF (CAPSULE) SPRAIN 03/13/2008 840.4 ROTA TOR CUFF (CAPSULE) SPRAIN 03/13/2008 840.4 ROTA TOR CUFF (CAPSULE) SPRAIN 03/13/2008 JAYE RIGGS APRN 84 0.4 ROTATOR CUFF (CAPSULE) SPRAIN 03/13/2008 DARSHAN RODRIGUEZ MD 840.4 ROTATOR CUFF (CAPSULE) SPRAIN 03/13/2008 DARSHAN RODRIGUEZ MD 840.4 ROTATOR CUFF (CAPSULE) SPRAIN 03/13/2008 DARSHAN RODRIGUEZ MD 840.4 ROTATOR CUFF (CAPSULE) SPRAIN 03/13/2008 JAYE RIGGS APRN 84 0.4 ROTATOR CUFF (CAPSULE) SPRAIN 03/13/2008 JAYE RIGGS APRN 84 0.4 ROTATOR CUFF (CAPSULE) SPRAIN 03/13/2008 JAYE RIGGS APRN 84 0.4 ROTATOR CUFF (CAPSULE) SPRAIN 03/13/2008 IRMA ROGER DO 840.4 ROTATOR CUFF (CAPSULE) SPRAIN 03/13/2008 JAYE RIGGS APRN 84 0.4 ROTATOR CUFF (CAPSULE) SPRAIN 03/26/2008 250.02 JOVANNA BETES II UNCONTROLLED 03/26/2008 JAYE RIGGS APRN 250.02 DIABETES II UNCONTROLLED 03/26/2008 JAYE RIGGS APRN T 250.02 DIABETES II UNCONTROLLED 03/26/2008 250.02 JOVANNA BETES II UNCONTROLLED 03/26/2008 250.02 JOVANNA BETES II UNCONTROLLED 03/26/2008 250.02 JOVANNA BETES II UNCONTROLLED 03/26/2008 250.02 JOVANNA BETES II UNCONTROLLED 03/26/2008 250.02 JOVANNA BETES II UNCONTROLLED 03/26/2008 250.02 JOVANNA BETES II UNCONTROLLED 03/26/2008 JAYE RIGGS APRN 250.02 DIABETES II UNCONTROLLED 03/26/2008 DARSHAN RODRIGUEZ MD 250.0 2 DIABETES II UNCONTROLLED 03/26/2008 DARSHAN RODRIGUEZ MD 250.0 2 DIABETES II UNCONTROLLED 03/26/2008 DARSHAN RODRIGUEZ MD 250.0 2 DIABETES II UNCONTROLLED 03/26/2008 JAYE RIGGS APRN 250.02 DIABETES II UNCONTROLLED 03/26/2008 JAYE RIGGS APRN T 250.02 DIABETES II UNCONTROLLED 03/26/2008 JAYE RIGGS APRN T 250.02 DIABETES II UNCONTROLLED 03/26/2008 IRMA ROGER DO 250.02 DIABETES II UNCONTROLLED 03/26/2008 JAYE RIGGS APRN T 250.02 DIABETES II UNCONTROLLED 03/12/2009 V70.0 NORM AL ROUTINE HISTORY AND PHYSICAL 03/12/2009 JAYE RIGGS APRN V7 0.0 NORMAL ROUTINE HISTORY AND PHYSICAL 03/12/2009 JAYE RIGGS APRN V7 0.0 NORMAL ROUTINE HISTORY AND PHYSICAL 03/12/2009 V70.0 NORM AL ROUTINE HISTORY AND PHYSICAL 03/12/2009 V70.0 NORM AL ROUTINE HISTORY AND PHYSICAL 03/12/2009 V70.0 NORM AL ROUTINE HISTORY AND PHYSICAL 03/12/2009 V70.0 NORM AL ROUTINE HISTORY AND PHYSICAL 03/12/2009 V70.0 NORM AL ROUTINE HISTORY AND PHYSICAL 03/12/2009 V70.0 NORM AL ROUTINE HISTORY AND PHYSICAL 03/12/2009 JAYE RIGGS APRN V7 0.0 NORMAL ROUTINE HISTORY AND PHYSICAL 03/12/2009 DARSHAN RODRIGUEZ MD V70.0 NORMAL ROUTINE HISTORY AND PHYSICAL 03/12/2009 DARSHAN RODRIGUEZ MD V70.0 NORMAL ROUTINE HISTORY AND PHYSICAL 03/12/2009 DARSHAN RODRIGUEZ MD V70.0 NORMAL ROUTINE HISTORY AND PHYSICAL 03/12/2009 JAYE RIGGS APRN V7 0.0 NORMAL ROUTINE HISTORY AND PHYSICAL 03/12/2009 JAYE RIGGS APRN V7 0.0 NORMAL ROUTINE HISTORY AND PHYSICAL 03/12/2009 JAYE RIGGS APRN V7 0.0 NORMAL ROUTINE HISTORY AND PHYSICAL 03/12/2009 IRMA ROGER DO V70.0 NORMAL ROUTINE HISTORY AND PHYSICAL 03/12/2009 JAYE RIGGS APRN V7 0.0 NORMAL ROUTINE HISTORY AND PHYSICAL 08/06/2009 535.50 GAS TRITIS UNSPEC 08/06/2009 JAYE RIGGS APRN 535.50 GASTRITIS UNSPEC 08/06/2009 JAYE RIGGS APRN 535.50 GASTRITIS UNSPEC 08/06/2009 535.50 GAS TRITIS UNSPEC 08/06/2009 535.50 GAS TRITIS UNSPEC 08/06/2009 535.50 GAS TRITIS UNSPEC 08/06/2009 535.50 GAS TRITIS UNSPEC 08/06/2009 535.50 GAS TRITIS UNSPEC 08/06/2009 535.50 GAS TRITIS UNSPEC 08/06/2009 JAYE RIGGS APRN 535.50 GASTRITIS UNSPEC 08/06/2009 DARSHAN RODRIGUEZ MD 535.5 0 GASTRITIS UNSPEC 08/06/2009 DARSHAN RODRIGUEZ MD 535.5 0 GASTRITIS UNSPEC 08/06/2009 DARSHAN RODRIGUEZ MD 535.5 0 GASTRITIS UNSPEC 08/06/2009 JAYE RIGGS APRN 535.50 [...] Ot E816.2 11/16/2010 Ot V57.1 05/26/2011 302.72 PSY CHOSEXUAL DYSFUNCTION WITH INHIBITED SEXUAL EXCITEMENT 05/26/2011 465.9 UPPE R RESPIRATORY INFECTION 05/26/2011 JAYE RIGGS APRN 302.72 PSYCHOSEXUAL DYSFUNCTION WITH INHIBITED SEXUAL EXCITEM ENT 05/26/2011 JAYE RIGGS APRN 46 5.9 UPPER RESPIRATORY INFECTION 05/26/2011 JAYE RIGGS APRN 302.72 PSYCHOSEXUAL DYSFUNCTION WITH INHIBITED SEXUAL EXCITEM ENT 05/26/2011 JAYE RIGGS APRN 46 5.9 UPPER RESPIRATORY INFECTION 05/26/2011 302.72 PSY CHOSEXUAL DYSFUNCTION WITH INHIBITED SEXUAL EXCITEMENT 05/26/2011 465.9 UPPE R RESPIRATORY INFECTION 05/26/2011 302.72 PSY CHOSEXUAL DYSFUNCTION WITH INHIBITED SEXUAL EXCITEMENT 05/26/2011 465.9 UPPE R RESPIRATORY INFECTION 05/26/2011 302.72 PSY CHOSEXUAL DYSFUNCTION WITH INHIBITED SEXUAL EXCITEMENT 05/26/2011 465.9 UPPE R RESPIRATORY INFECTION 05/26/2011 302.72 PSY CHOSEXUAL DYSFUNCTION WITH INHIBITED SEXUAL EXCITEMENT 05/26/2011 465.9 UPPE R RESPIRATORY INFECTION 05/26/2011 302.72 PSY CHOSEXUAL DYSFUNCTION WITH INHIBITED SEXUAL EXCITEMENT 05/26/2011 465.9 UPPE R RESPIRATORY INFECTION 05/26/2011 302.72 PSY CHOSEXUAL DYSFUNCTION WITH INHIBITED SEXUAL EXCITEMENT 05/26/2011 465.9 UPPE R RESPIRATORY INFECTION 05/26/2011 JAYE RIGGS APRN 302.72 PSYCHOSEXUAL DYSFUNCTION WITH INHIBITED SEXUAL EXCITEM ENT 05/26/2011 JAYE RIGGS APRN 46 5.9 UPPER RESPIRATORY INFECTION 05/26/2011 DARSHAN RODRIGUEZ MD 302.7 2 PSYCHOSEXUAL DYSFUNCTION WITH INHIBITED SEXUAL EXCITEMENT 05/26/2011 DARSHAN RODRIGUEZ MD 465.9 UPPER RESPIRATORY INFECTION 05/26/2011 DARSHAN RODRIGUEZ MD 302.7 2 PSYCHOSEXUAL DYSFUNCTION WITH INHIBITED SEXUAL EXCITEMENT 05/26/2011 DARSHAN RODRIGUEZ MD 465.9 UPPER RESPIRATORY INFECTION 05/26/2011 DARSHAN RODRIGUEZ MD 302.7 2 PSYCHOSEXUAL DYSFUNCTION WITH INHIBITED SEXUAL EXCITEMENT 05/26/2011 DARSHAN RODRIGUEZ MD 465.9 UPPER RESPIRATORY INFECTION 05/26/2011 JAYE RIGGS APRN 302.72 PSYCHOSEXUAL DYSFUNCTION WITH INHIBITED SEXUAL EXCITEM ENT 05/26/2011 JAYE RIGGS APRN 46 5.9 UPPER RESPIRATORY INFECTION 05/26/2011 JAYE RIGGS APRN 302.72 PSYCHOSEXUAL DYSFUNCTION WITH INHIBITED SEXUAL EXCITEM ENT 05/26/2011 JAYE RIGGS APRN 46 5.9 UPPER RESPIRATORY INFECTION 05/26/2011 JAYE RIGGS APRN 302.72 PSYCHOSEXUAL DYSFUNCTION WITH INHIBITED SEXUAL EXCITEM ENT 05/26/2011 JAYE RIGGS APRN 46 5.9 UPPER RESPIRATORY INFECTION 05/26/2011 ROGER DO, IRMA K 302.72 PSYCHOSEXUAL DYSFUNCTION WITH INHIBITED SEXUAL EXCITEMENT 05/26/2011 ROGER DO, IRMA K 465.9 UPPER RESPIRATORY INFECTION 05/26/2011 JAYE RIGGS APRN 302.72 PSYCHOSEXUAL DYSFUNCTION WITH INHIBITED SEXUAL EXCITEM ENT 05/26/2011 JAYE RIGGS APRN 46 5.9 UPPER RESPIRATORY INFECTION 08/29/2011 Ot 079.99 VIR AL INFECTION NOS 08/29/2011 Ot 780.60 FEV ER, UNSPECIFIED 09/01/2011 780.60 FEV ER, UNSPECIFIED 09/01/2011 JAYE RIGGS APRN 780.60 FEVER, UNSPECIFIED 09/01/2011 JAYE RIGGS APRN 780.60 FEVER, UNSPECIFIED 09/01/2011 780.60 FEV ER, UNSPECIFIED 09/01/2011 780.60 FEV ER, UNSPECIFIED 09/01/2011 780.60 FEV ER, UNSPECIFIED 09/01/2011 780.60 FEV ER, UNSPECIFIED 09/01/2011 780.60 FEV ER, UNSPECIFIED 09/01/2011 780.60 FEV ER, UNSPECIFIED 09/01/2011 JAYE RIGGS APRN 780.60 FEVER, UNSPECIFIED 09/01/2011 DARSHAN RODRIGUEZ MD 780.6 0 FEVER, UNSPECIFIED 09/01/2011 DARSHAN RODRIGUEZ MD 780.6 0 FEVER, UNSPECIFIED 09/01/2011 DARSHAN RODRIGUEZ MD 780.6 0 FEVER, UNSPECIFIED 09/01/2011 JAYE RIGGS APRN 780.60 FEVER, UNSPECIFIED 09/01/2011 JAYE RIGGS APRN 780.60 FEVER, UNSPECIFIED 09/01/2011 JAYE RIGGS APRN 780.60 FEVER, UNSPECIFIED 09/01/2011 ROGER DO, IRMA K 780.60 FEVER, UNSPECIFIED 09/01/2011 JAYE RIGGS APRN 780.60 FEVER, UNSPECIFIED 05/24/2012 414.00 CAD 05/24/2012 JAYE RIGGS APRN T 414.00 CAD 05/24/2012 ONEIL HODGE, JAYE T 414.00 CAD 05/24/2012 414.00 CAD 05/24/2012 414.00 CAD 05/24/2012 414.00 CAD 05/24/2012 414.00 CAD 05/24/2012 414.00 CAD 05/24/2012 414.00 CAD 05/24/2012 JAYE RIGGS APRN T 414.00 CAD 05/24/2012 DARSHAN RODRIGUEZ MD 414.0 0 CAD 05/24/2012 DARSHAN RODRIGUEZ MD 414.0 0 CAD 05/24/2012 DARSHAN RODRIGUEZ MD 414.0 0 CAD 05/24/2012 JAYE RIGGS APRN T 414.00 CAD 05/24/2012 ONEIL HODGE JAYE T 414.00 CAD 05/24/2012 JAYE RIGGS APRN T 414.00 CAD 05/24/2012 ROGER DO, IRMA K 414.00 CAD 05/24/2012 JAYE RIGGS APRN T 414.00 CAD 06/05/2012 JAYE RIGGS APRN T 786.50 CHEST PAIN 06/05/2012 JAYE RIGGS APRN T 786.50 CHEST PAIN 06/05/[address] PAIN 06/05/[address] PAIN 06/05/[address] PAIN 06/05/[address] PAIN 06/05/[address] PAIN 06/05/[address] PAIN 06/05/2012 JAYE RIGGS APRN T 786.50 CHEST PAIN 06/05/2012 DARSHAN RODRIGUEZ MD 786.5 0 CHEST PAIN 06/05/2012 DARSHAN RODRIGUEZ MD 786.5 0 CHEST PAIN 06/05/2012 DARSHAN RODRIGUEZ MD 786.5 0 CHEST PAIN 06/05/2012 JAYE RIGGS APRN T 786.50 CHEST PAIN 06/05/2012 JAYE RIGGS APRN T 786.50 CHEST PAIN 06/05/2012 JAYE RIGGS APRN T 786.50 CHEST PAIN 06/05/2012 ROGER DO, IRMA K 786.50 CHEST PAIN 06/05/2012 JAYE RIGGS APRN T 786.50 CHEST PAIN 06/11/2012 Ot 250.00 JOVANNA B CHETNA WO COMPL, TYPE II OR UNSPEC TY 06/11/2012 Ot 272.4 HYPE RLIPIDEMIA NEC/NOS 06/11/2012 Ot 288.60 IVY KOCYTOSIS, UNSPECIFIED 06/11/2012 Ot 305.1 TOBA RUG SCRATCHER USE DISORDER 06/11/2012 Ot 311 DEPRES SIVE DISORDER NEC 06/11/2012 Ot 414.01 COR ONARY ATHEROSCLEROSIS OF [place] CORON 06/11/2012 Ot 530.81 ESO PHAGEAL REFLUX 06/11/[address] PAIN NOS 06/11/2012 Ot V58.69 OTH MED,LT,CURRENT USE 10/17/2012 959.7 OTHE R AND UNSPECIFIED INJURY TO KNEE LEG ANKLE AND FOOT 10/17/2012 959.7 OTHE R AND UNSPECIFIED INJURY TO KNEE LEG ANKLE AND FOOT 10/17/2012 JAYE RIGGS APRN 95 9.7 OTHER AND UNSPECIFIED INJURY TO KNEE LEG ANKLE AND FOOT 10/17/2012 DARSHAN RODRIGUEZ MD 959.7 OTHER AND UNSPECIFIED INJURY TO KNEE LEG ANKLE AND FOOT 10/17/2012 DARSHAN RODRIGUEZ MD 959.7 OTHER AND UNSPECIFIED INJURY TO KNEE LEG ANKLE AND FOOT 10/17/2012 DARSHAN RODRIGUEZ MD 959.7 OTHER AND UNSPECIFIED INJURY TO KNEE LEG ANKLE AND FOOT 10/17/2012 JAYE RIGGS APRN 95 9.7 OTHER AND UNSPECIFIED INJURY TO KNEE LEG ANKLE AND FOOT 10/17/2012 JAYE RIGGS APRN 95 9.7 OTHER AND UNSPECIFIED INJURY TO KNEE LEG ANKLE AND FOOT 10/17/2012 JAEY RIGGS APRN 95 9.7 OTHER AND UNSPECIFIED INJURY TO KNEE LEG ANKLE AND FOOT 10/17/2012 IRMA ROGER DO 959.7 OTHER AND UNSPECIFIED INJURY TO KNEE LEG ANKLE AND FOOT 10/17/2012 JAYE RIGGS APRN 95 9.7 OTHER AND UNSPECIFIED INJURY TO KNEE LEG ANKLE AND FOOT 11/27/2012 401.9 HYPE RTENSION, UNSPECIFIED ESSENTIAL 11/27/2012 JAYE RIGGS APRN 40 1.9 HYPERTENSION, UNSPECIFIED ESSENTIAL 11/27/2012 DARSHAN RODRIGUEZ MD 401.9 HYPERTENSION, UNSPECIFIED ESSENTIAL 11/27/2012 DARSHAN RODRIGUEZ MD 401.9 HYPERTENSION, UNSPECIFIED ESSENTIAL 11/27/2012 DARSHAN RODRIGUEZ MD 401.9 HYPERTENSION, UNSPECIFIED ESSENTIAL 11/27/2012 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 01 ENCNTR FOR REMOVAL OF INTERNAL FIXATION 03/21/2013 DARSHAN RODRIGUEZ MD 288.6 0 LEUKOCYTOSIS 03/21/2013 DARSHAN RODRIGUEZ MD 288.6 0 LEUKOCYTOSIS 03/21/2013 DARSHAN RODRIGUEZ MD 288.6 0 LEUKOCYTOSIS 03/21/2013 JAYE RIGGS APRN T 288.60 LEUKOCYTOSIS 03/21/2013 JAYE RIGGS APRN T 288.60 LEUKOCYTOSIS 03/21/2013 JAYE RIGGS APRN T 288.60 LEUKOCYTOSIS 03/21/2013 KIRSTIE ROGER DOA K 288.60 LEUKOCYTOSIS 03/21/2013 JAYE RIGGS APRN T 288.60 LEUKOCYTOSIS 09/24/2013 IRMA ROGER DO K 250.00 DIABETES II CONTROLLED (UNCOMPLICATED) 09/24/2013 JAYE IRGGS APRN 250.00 DIABETES II CONTROLLED (UNCOMPLICATED) 02/18/2014 JAYE RIGGS APRN 27 4.9 GOUT 09/01/2014 Ot 823.00 09/01/2014 Ot E000.8 09/01/2014 Ot E816.2 09/01/2014 Ot V72.83 09/01/2014 Ot V74.8 09/01/2014 Ot 786.50 09/01/2014 GABI VALENCIA MD Ot V54. 01 09/01/2014 ANNIE FERRO, GABI Katz Ot V72. 84 09/01/2014 GABI VALENCIA MD Ot V74. 8 09/01/2014 DARSHAN RODRIGUEZ MD Ot 250.00 09/01/2014 DARSHAN RODRIGUEZ MD Ot 288.60 09/01/2014 DARSHAN RODRIGUEZ MD Ot 305 .1 09/01/2014 DARSHAN RODRIGUEZ MD Ot 401 .9 09/01/2014 DARSHAN RODRIGUEZ MD Ot 414.01 09/01/2014 DARSHAN RODRIGUEZ MD Ot 530.81 09/01/2014 MICHAEL FERRO, DARSHAN Ruelas Ot 577 .9 09/01/2014 MICHAEL FERRO, DARSHAN Ruelas Ot 715.90 09/01/2014 MICHAEL FERRO, DARSHAN Ruelas Ot 786.59 09/01/2014 MICHAEL FERRO, DARSHAN Ruelas Ot 786 .6 09/01/2014 MICHAEL FERRO, DARSHAN Ruelas Ot V45.82 09/02/2014 Ot 823.00 09/02/2014 Ot E000.8 09/02/2014 Ot E816.2 09/02/2014 Ot V72.83 09/02/2014 Ot V74.8 09/02/2014 Ot 786.50 09/02/2014 ANNIE FERRO, GABI L Ot V54. 01 09/02/2014 ANNIE FERRO, GABI L Ot V72. 84 09/02/2014 ANNIE FERRO, GABI L Ot V74. 8 09/03/2014 MICHAEL FERRO, DARSHAN Ruelas Ot 250.00 DIAB CHETNA WO COMPL, TYPE II OR UNSPEC TY 09/03/2014 MICHAEL FERRO, DARSHAN Ruelas Ot 288.60 LEUKOCYTOSIS, UNSPECIFIED 09/03/2014 MICHAEL FERRO, DARSHAN Ruelas Ot 305 .1 TOBACCO USE DISORDER 09/03/2014 MICHAEL FERRO, DARSHAN Ruelas Ot 401 .9 HYPERTENSION NOS 09/03/2014 MICHAEL FERRO, DARSHAN Ruelas Ot 414.01 CORONARY ATHEROSCLEROSIS OF [place] CORON 09/03/2014 MICHAEL FERRO, DARSHAN Ruelas Ot 530.81 ESOPHAGEAL REFLUX 09/03/2014 MICHAEL FERRO, DARSHAN Ruelas Ot 577 .9 PANCREATIC DISEASE NOS 09/03/2014 MICHAEL FERRO, DARSHAN Ruelas Ot 715.90 OSTEOARTHROS NOS-UNSPEC 09/03/2014 MICHAEL FERRO, DARSHAN Ruelas Ot 786.59 CHEST PAIN NEC 09/03/2014 MICHAEL FERRO, DARSHAN Ruelas Ot 786 .6 CHEST SWELLING/MASS/LUMP 09/03/2014 DARSHAN RODRIGUEZ MD Ot V45.82 PERCUTANEOUS TRANSLUM CORON ANGIOPLASTY 09/03/2014 DARSHAN RODRIGUEZ MD, Ot V58.69 OT MED,LT,CURRENT USE 09/04/2014 MICHAEL FERRO, DASRHAN Ruelas Ot 250.00 09/04/2014 DARSHAN RODRIGUEZ MD Ot 288.60 09/04/2014 MICHAEL FERRO, DARSHAN Ruelas Ot 305 .1 09/04/2014 MICHAEL FERRO, DARSHAN Ruelas Ot 401 .9 09/04/2014 MICHAEL FERRO, DARSHAN Ruelas Ot 414.01 09/04/2014 MICHAEL FERRO, DARSHAN Ruelas Ot 530.81 09/04/2014 MICHAEL FERRO, DARSHAN Ruelas Ot 577 .9 09/04/2014 MICHAEL FERRO, DARSHAN Ruelas Ot 715.90 09/04/2014 MICHAEL FERRO, DARSHAN Ruelas Ot 786.59 09/04/2014 MICHAEL FERRO, DARSHAN Ruelas Ot 786 .6 09/04/2014 MICHAEL FERRO, DARSHAN Ruelas Ot V45.82 11/05/2014 Ot 823.00 11/05/2014 Ot E000.8 11/05/2014 Ot E816.2 11/05/2014 Ot V72.83 11/05/2014 Ot V74.8 11/05/2014 Ot 786.50 11/05/2014 ANNIE FERRO, GABI L Ot V54. 01 11/05/2014 ANNIE FERRO, GABI L Ot V72. 84 11/05/2014 ANNIE FERRO, GABI L Ot V74. 8 11/10/2014 Ot 823.00 11/10/2014 Ot E000.8 11/10/2014 Ot E816.2 11/10/2014 Ot V72.83 11/10/2014 Ot V74.8 11/10/2014 Ot 786.50 11/10/2014 ANNIE FERRO, GABI L Ot V54. 01 11/10/2014 ANNIE FERRO, GABI L Ot V72. 84 11/10/2014 ANNIE FERRO, GABI L Ot V74. 8 11/11/2014 CHAPO BARRETO MD Ot 162.9 12/14/2014 Ot 823.00 12/14/2014 Ot E000.8 12/14/2014 Ot E816.2 12/14/2014 Ot V72.83 12/14/2014 Ot V74.8 12/14/2014 Ot 786.50 12/14/2014 GABI VALENCIA MD L Ot V54. 01 12/14/2014 ANNIE FERRO, GABI L Ot V72. 84 12/14/2014 ANNIE FERRO, GABI L Ot V74. 8 12/14/2014 CHAPO BARRETO MD Ot 162.9 12/14/2014 BRANDY FERRO, JAMMIE Ot 162. 3 12/14/2014 BRANDY FERRO, KANDI-RJ Ot 250. 00 12/14/2014 BRANDY FERRO, KANDI-RJ Ot 272. 4 12/14/2014 BRANDY FERRO, KANDI-RJ Ot 414. 00 12/14/2014 BRANDY FERRO, KANDI-RJ Ot 793. 0 12/14/2014 BRANDY FERRO, KANDI-RJ Ot V45. 82 12/14/2014 BRANDY FERRO, KANDI-RJ Ot V58. 69 12/16/2014 BRANDY FERRO, KANDI-RJ Ot 162. 3 12/16/2014 BRANDY FERRO, KANDI-RJ Ot 250. 00 12/16/2014 BRANDY FERRO, KANDI-RJ Ot 272. 4 12/16/2014 BRANDY FERRO, KANDI-RJ Ot 414. 00 12/16/2014 BRANDY FERRO, KANDI-RJ Ot 793. 0 12/16/2014 BRANDY FERRO, KANDI-RJ Ot V45. 82 12/16/2014 BRANDY FERRO, KANDI-RJ Ot V58. 69 12/23/2014 BRANDY FERRO, CHAUDELIA Ot 162. 3 12/23/2014 BRANDY FERRO, CHAURJ Ot 250. 00 12/23/2014 BRANDY FERRO, JAMMIE Ot 272. 4 12/23/2014 BRANDY FERRO, CHAU-RJ Ot 414. 00 12/23/2014 BRANDY FERRO, KANDIRJ Ot 793. 0 12/23/2014 BRANDY FERRO, JAMMIE Ot V45. 82 12/23/2014 BRANDY FERRO, CHAURJ Ot V58. 69 12/30/2014 Ot 823.00 12/30/2014 Ot E000.8 12/30/2014 Ot E816.2 12/30/2014 Ot V72.83 12/30/2014 Ot V74.8 12/30/2014 Ot 786.50 12/30/2014 ANNIE FERRO, GABI L Ot V54. 01 12/30/2014 ANNIE FERRO, GABI L Ot V72. 84 12/30/2014 ANNIE FERRO, GABI L Ot V74. 8 12/30/2014 ESTEVAN FERRO, CHAPO J Ot 162.9 12/30/2014 BRANDY FERRO, JAMMIE Ot 162. 3 12/30/2014 BRANDY FERRO, JAMMIE Ot 250. 00 12/30/2014 BRANDY FERRO, CHAU-RJ Ot 272. 4 12/30/2014 BRANDY FERRO, CHAU-RJ Ot 414. 00 12/30/2014 BRANDY FERRO, KANDI-RJ Ot 793. 0 12/30/2014 BRANDY FERRO, KANDI-RJ Ot V45. 82 12/30/2014 BRANDY FERRO, KANDI-RJ Ot V58. 69 12/30/2014 TEREZA VISHNU S SULFUR CHLORIDE OPERATOR Ot 162.3 12/30/2014 STARKS, HILAH S SULFUR CHLORIDE OPERATOR Ot 250.00 12/30/2014 STARKS, HILAH S SULFUR CHLORIDE OPERATOR Ot 272.4 12/30/2014 STARKS, HILAH S SULFUR CHLORIDE OPERATOR Ot 414.00 12/30/2014 STARKS, HILAH S SULFUR CHLORIDE OPERATOR Ot 793.0 12/30/2014 STARKS, VISHNU S SULFUR CHLORIDE OPERATOR Ot V45.82 12/30/2014 TEREZA, HILAH S SULFUR CHLORIDE OPERATOR Ot V58.69 01/13/2015 BRANDY FERRO, JAMMIE Ot 162. 3 01/13/2015 BRANDY FERRO, JAMMIE Ot 250. 00 01/13/2015 BRANDY FERRO, JAMMIE Ot 272. 4 01/13/2015 BRANDY FERRO, KANDI-RJ Ot 414. 00 01/13/2015 BRANDY FERRO, KANDI-RJ Ot 793. 0 01/13/2015 BRANDY FERRO, JAMMIE Ot V45. 82 01/13/2015 BRANDY FERRO, KANDI-RJ Ot V58. 69 01/14/2015 BRANDY FERRO, JAMMIE Ot 162. 3 01/14/2015 BRANDY FERRO, KANDI-RJ Ot 250. 00 01/14/2015 BRANDY FERRO, JAMMIE Ot 272. 4 01/14/2015 BRANDY FERRO, KANDI-RJ Ot 414. 00 01/14/2015 BRANDY FERRO, KANDI-RJ Ot 793. 0 01/14/2015 BRANDY FERRO, KANDI-RJ Ot V45. 82 01/14/2015 BRANDY FERRO, JAMMIE Ot V58. 69 01/20/2015 BRANDY FERRO, JAMMIE Ot 162. 3 MAL LAURA UPPER LOBE LUNG 01/20/2015 BRANDY FERRO, KANDI-RJ Ot 250. 00 DIAB CHETNA WO COMPL, TYPE II OR UNSPEC TY 01/20/2015 BRANDY FERRO, JAMMIE Ot 272. 4 HYPERLIPIDEMIA NEC/NOS 01/20/2015 BRANDY FERRO, JAMMIE Ot 414. 00 CORON ATHEROSCLER NOS TYPE VESSEL, NATIV 01/20/2015 BRANDY FERRO, JAMMIE Ot 793. 0 NOSP (ABN) FINDINGS ON RADIOLOGICAL OT 01/20/2015 BRANDY FERRO, JAMMIE Ot V45. 82 PERCUTANEOUS TRANSLUM CORON ANGIOPLASTY 01/20/2015 BRANDY FERRO, JAMMIE Ot V58. 11 ENCOUNTER FOR ANTINEOPLASTIC CHEMOTHERAP 01/20/2015 BRANDY FERRO, JAMMIE Ot V58. 69 OT MED,LT,CURRENT USE 02/24/2015 Ot 823.00 02/24/2015 Ot E000.8 02/24/2015 Ot E816.2 02/24/2015 Ot V72.83 02/24/2015 Ot V74.8 02/24/2015 Ot 786.50 02/24/2015 ANNIE FERRO, GABI L Ot V54. 01 02/24/2015 ANNIE FERRO, GABI L Ot V72. 84 02/24/2015 ANNIE FERRO, GABI L Ot V74. 8 02/24/2015 ESTEVAN FERRO, CHAPO J Ot 162.9 02/24/2015 VISHNU STARKS SULFUR CHLORIDE OPERATOR Ot 162.3 02/24/2015 VISHNU STARKS SULFUR CHLORIDE OPERATOR Ot 250.00 02/24/2015 VISHNU STARKS SULFUR CHLORIDE OPERATOR Ot 272.4 02/24/2015 VISHNU STARKS SULFUR CHLORIDE OPERATOR Ot 414.00 02/24/2015 VISHNU STARKS SULFUR CHLORIDE OPERATOR Ot 793.0 02/24/2015 VISHNU STARKS SULFUR CHLORIDE OPERATOR Ot V45.82 02/24/2015 VISHNU STARKSP Ot V58.69 02/24/2015 BRANDY FERRO, JAMMIE Ot 162. 3 02/24/2015 BRANDY FERRO, JAMMIE Ot 250. 00 02/24/2015 BRANDY FERRO, JAMMIE Ot 272. 4 02/24/2015 BRANDY FERRO, JAMMIE Ot 414. 00 02/24/2015 BRANDY FERRO, JAMMIE Ot 793. 0 02/24/2015 BRANDY FERRO, JAMMIE Ot V45. 82 02/24/2015 BRANDY FERRO, JAMMIE Ot V58. 69 02/24/2015 ESTEVAN FERRO, CHAPO J Ot 162.9 03/23/2015 BRANDY FERRO, JAMMIE Ot 162. 3 03/23/2015 BRANDY FERRO, JAMMIE Ot 250. 00 03/23/2015 BRANDY FERRO, JAMMIE Ot 272. 4 03/23/2015 BRANDY FERRO, JAMMIE Ot 414. 00 03/23/2015 BRANDY FERRO, JAMMIE Ot 793. 0 03/23/2015 BRANDY FERRO, JAMMIE Ot V45. 82 03/23/2015 BRANDY FERRO, JAMMIE Ot V58. 69 03/30/2015 Ot 823.00 03/30/2015 Ot E000.8 03/30/2015 Ot E816.2 03/30/2015 Ot V72.83 03/30/2015 Ot V74.8 03/30/2015 Ot 786.50 03/30/2015 ANNIE FERRO, GABI L Ot V54. 01 03/30/2015 ANNIE FERRO, GABI L Ot V72. 84 03/30/2015 ANNIE FERRO, GABI L Ot V74. 8 03/30/2015 ESTEVAN FERRO, CHAPO J Ot 162.9 03/30/2015 VISHNU STARKS SULFUR CHLORIDE OPERATOR Ot 162.3 03/30/2015 VISHNU STARKS SULFUR CHLORIDE OPERATOR Ot 250.00 03/30/2015 VISHNU STARKS SULFUR CHLORIDE OPERATOR Ot 272.4 03/30/2015 VISHNU STARKS SULFUR CHLORIDE OPERATOR Ot 414.00 03/30/2015 VISHNU STARKS SULFUR CHLORIDE OPERATOR Ot 793.0 03/30/2015 VISHNU STARKS S SULFUR CHLORIDE OPERATOR Ot V45.82 03/30/2015 VISHNU STARKS S SULFUR CHLORIDE OPERATOR Ot V58.69 03/30/2015 BRANDY FERRO, JAMMIE Ot C34. 10 03/30/2015 BRANDY FERRO, JAMMIE Ot E11. 9 03/30/2015 BRANDY FERRO, JAMMIE Ot E78. 5 03/30/2015 BRANDY FERRO, JAMMIE Ot I25. 10 03/30/2015 BRANDY FERRO, JAMMIE Ot Z51. 11 03/30/2015 BRANDY FERRO, JAMMIE Ot Z79.899 03/30/2015 BRANDY FERRO, JAMMIE Ot Z98. 61 04/27/2015 BRANDY FERRO, JAMMIE Ot C34. 10 MALIGNANT NEOPLASM OF UPPER LOBE, UNSP B 04/27/2015 BRANDY FERRO, JAMMIE Ot E11. 9 TYPE 2 DIABETES MELLITUS WITHOUT COMPLIC 04/27/2015 JAMMIE NAVA MD Ot E78. 5 HYPERLIPIDEMIA, UNSPECIFIED 04/27/2015 JAMMIE NAVA MD, Ot I25. 10 ATHSCL HEART DISEASE OF [place] CORONARY 04/27/2015 JAMMIE NAVA MD Ot Z51. 11 ENCOUNTER FOR ANTINEOPLASTIC CHEMOTHERAP 04/27/2015 JAMMIE NAVA MD Ot Z79.899 OTHER [facility] (CURRENT) DRUG THERAPY 04/27/2015 JAMMIE NAVA MD Ot Z98. 61 CORONARY ANGIOPLASTY STATUS 07/28/2016 JAMMIE NAVA MD Ot C34. 10 MALIGNANT NEOPLASM OF UPPER LOBE, UNSP B 07/28/2016 JAMMIE NAVA MD Ot E11. 9 TYPE 2 DIABETES MELLITUS WITHOUT COMPLIC 07/28/2016 JAMMIE NAVA MD Ot E78. 5 HYPERLIPIDEMIA, UNSPECIFIED 07/28/2016 JAMMIE NAVA MD Ot I25. 10 ATHSCL HEART DISEASE OF [place] CORONARY 07/28/2016 JAMMIE NAVA MD, Ot Z51. 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 61 CORONARY ANGIOPLASTY STATUS 07/28/2016 MILE CHOWDHURY DO Ot Z01.8 18 ENCOUNTER FOR OTHER PREPROCEDURAL EXAMIN 07/28/2016 MILE CHOWDHURY DO Ot Z85.1 18 PERSONAL HISTORY OF MALIGNANT NEOPLASM O 07/31/[address] PAIN NOS 07/31/2016 GABI VALENCIA MD Ot V54. 01 ENCNTR FOR REMOVAL OF INTERNAL FIXATION 07/31/2016 GABI VALENCIA MD Ot V72. 84 EXAM PRE-OPERATIVE NOS 07/31/2016 GABI VALENCIA MD Ot V74. 8 SCREEN-BACTERIAL DIS NEC 07/31/2016 CHAPO BARRETO MD Ot 162.9 MAL LAURA BRONCH/LUNG NOS 07/31/2016 VISHNU STARKS SULFUR CHLORIDE OPERATOR Ot 162.3 MAL LAURA UPPER LOBE LUNG 07/31/2016 VISHNU STARKS SULFUR CHLORIDE OPERATOR Ot 250.00 DIAB CHETNA WO COMPL, TYPE II OR UNSPEC TY 07/31/2016 VISHNU STARKS SULFUR CHLORIDE OPERATOR Ot 272.4 HYPERLIPIDEMIA NEC/NOS 07/31/2016 VISHNU STARKS SULFUR CHLORIDE OPERATOR Ot 414.00 CORON ATHEROSCLER NOS TYPE VESSEL, NATIV 07/31/2016 VISHNU STARKS SULFUR CHLORIDE OPERATOR Ot 793.0 NOSP (ABN) FINDINGS ON RADIOLOGICAL OT 07/31/2016 VISHNU STARKSP Ot V45.82 PERCUTANEOUS TRANSLUM CORON ANGIOPLASTY 07/31/2016 VISHNU STARKSP Ot V58.69 OTH MED,LT,CURRENT USE 07/31/2016 JAMMIE NAVA MD Ot C34. 10 MALIGNANT NEOPLASM OF UPPER LOBE, UNSP B 07/31/2016 JAMMIE NAVA MD Ot E11. 9 TYPE 2 DIABETES MELLITUS WITHOUT COMPLIC 07/31/2016 JAMMIE NAVA MD Ot E78. 5 HYPERLIPIDEMIA, UNSPECIFIED 07/31/2016 JAMMIE NAVA MD Ot I25. 10 ATHSCL HEART DISEASE OF [place] CORONARY 07/31/2016 JAMMIE NAVA MD Ot Z51. 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 61 CORONARY ANGIOPLASTY STATUS 07/31/[address] PAIN NOS 07/31/2016 GABI VALENCIA MD Ot V54. 01 ENCNTR FOR REMOVAL OF INTERNAL FIXATION 07/31/2016 GABI VALENCIA MD Ot V72. 84 EXAM PRE-OPERATIVE NOS 07/31/2016 GABI VALENCIA MD Ot V74. 8 SCREEN-BACTERIAL DIS NEC 07/31/2016 ESTEVAN FERRO, CHAPO J Ot 162.9 MAL LAURA BRONCH/LUNG NOS 07/31/2016 VISHNU STARKS SULFUR CHLORIDE OPERATOR Ot 162.3 MAL LAURA UPPER LOBE LUNG 07/31/2016 VISHNU STARKS SULFUR CHLORIDE OPERATOR Ot 250.00 DIAB CHETNA WO COMPL, TYPE II OR UNSPEC TY 07/31/2016 VISHNU STARKS SULFUR CHLORIDE OPERATOR Ot 272.4 HYPERLIPIDEMIA NEC/NOS 07/31/2016 VISHNU STARKS SULFUR CHLORIDE OPERATOR Ot 414.00 CORON ATHEROSCLER NOS TYPE VESSEL, NATIV 07/31/2016 VISHNU STARKS SULFUR CHLORIDE OPERATOR Ot 793.0 NOSP (ABN) FINDINGS ON RADIOLOGICAL OT 07/31/2016 VISHNU STARKS SULFUR CHLORIDE OPERATOR Ot V45.82 PERCUTANEOUS TRANSLUM CORON ANGIOPLASTY 07/31/2016 VIHSNU STARKS SULFUR CHLORIDE OPERATOR Ot V58.69 OTH MED,LT,CURRENT USE 07/31/2016 JAMMIE NAVA MD, Ot C34. 10 MALIGNANT NEOPLASM OF UPPER LOBE, UNSP B 07/31/2016 JAMMIE NAVA MD Ot E11. 9 TYPE 2 DIABETES MELLITUS WITHOUT COMPLIC 07/31/2016 JAMMIE NAVA MD, Ot E78. 5 HYPERLIPIDEMIA, UNSPECIFIED 07/31/2016 JAMMIE NAVA MD, Ot I25. 10 ATHSCL HEART DISEASE OF [place] CORONARY 07/31/2016 JAMMIE NAVA MD, Ot Z51. 11 ENCOUNTER FOR ANTINEOPLASTIC CHEMOTHERAP 07/31/2016 JAMMIE NAVA MD Ot Z79.899 OTHER [facility] (CURRENT) DRUG THERAPY 07/31/2016 JAMMIE NAVA MD, Ot Z98. 61 CORONARY ANGIOPLASTY STATUS 07/31/2016 MILE CHOWDHURY DO Ot E11.9 TYPE 2 DIABETES MELLITUS WITHOUT COMPLIC 07/31/2016 KAYE CHOWDHURY DOIC B Ot I87.2 VENOUS INSUFFICIENCY (CHRONIC) (PERIPHER 07/31/2016 KAYE CHOWDHURY DOIC B Ot Z11.2 ENCOUNTER FOR SCREENING FOR OTHER BACTER 07/31/2016 MILE CHOWDHURY DO B Ot Z85.1 18 PERSONAL HISTORY OF MALIGNANT NEOPLASM O 07/31/2016 MILE CHOWDHURY DO B Ot Z01.8 18 ENCOUNTER FOR OTHER PREPROCEDURAL EXAMIN 07/31/2016 MILE CHOWDHURY DO B Ot Z85.1 18 PERSONAL HISTORY OF MALIGNANT NEOPLASM O 08/01/2016 MILE CHOWDHURY DO B Ot E11.9 TYPE 2 DIABETES MELLITUS WITHOUT COMPLIC 08/01/2016 MILE CHOWDHURY DO B Ot I87.2 VENOUS INSUFFICIENCY (CHRONIC) (PERIPHER 08/01/2016 MILE CHOWDHURY DO B Ot Z11.2 ENCOUNTER FOR SCREENING FOR OTHER BACTER 08/01/2016 MILE CHOWDHURY DO B Ot Z85.1 18 PERSONAL HISTORY OF MALIGNANT NEOPLASM O 09/12/[address] PAIN NOS 09/12/2016 GABI VALENCIA MD Ot V54. 01 ENCNTR FOR REMOVAL OF INTERNAL FIXATION 09/12/2016 GABI VALENCIA MD Ot V72. 84 EXAM PRE-OPERATIVE NOS 09/12/2016 ANNIE FERRO, GABI Katz Ot V74. 8 SCREEN-BACTERIAL DIS NEC 09/12/2016 ESTEVAN FERRO, CHAPO Lares Ot 162.9 MAL LAURA BRONCH/LUNG NOS 09/12/2016 VISHNU STARKS SULFUR CHLORIDE OPERATOR Ot 162.3 MAL LAURA UPPER LOBE LUNG 09/12/2016 VISHNU STARKS SULFUR CHLORIDE OPERATOR Ot 250.00 DIAB CHETNA WO COMPL, TYPE II OR UNSPEC TY 09/12/2016 VISHNU STARKS SULFUR CHLORIDE OPERATOR Ot 272.4 HYPERLIPIDEMIA NEC/NOS 09/12/2016 VISHNU STARKS S SULFUR CHLORIDE OPERATOR Ot 414.00 CORON ATHEROSCLER NOS TYPE VESSEL, NATIV 09/12/2016 VISHNU STARKS SULFUR CHLORIDE OPERATOR Ot 793.0 NOSP (ABN) FINDINGS ON RADIOLOGICAL OT 09/12/2016 VISHNU STARKSP Ot V45.82 PERCUTANEOUS TRANSLUM CORON ANGIOPLASTY 09/12/2016 VISHNU STARKSP Ot V58.69 OT MED,LT,CURRENT USE 09/12/2016 JAMMIE NAVA MD Ot C34. 10 MALIGNANT NEOPLASM OF UPPER LOBE, UNSP B 09/12/2016 JAMMIE NAVA MD Ot E11. 9 TYPE 2 DIABETES MELLITUS WITHOUT COMPLIC 09/12/2016 JAMMIE NAVA MD Ot E78. 5 HYPERLIPIDEMIA, UNSPECIFIED 09/12/2016 JAMMIE NAVA MD Ot I25. 10 ATHSCL HEART DISEASE OF [place] CORONARY 09/12/2016 JAMMIE NAVA MD Ot Z51. 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 61 CORONARY ANGIOPLASTY STATUS 09/12/2016 SRIDHAR BLACK SULFUR CHLORIDE OPERATOR Ot E11.9 TYPE 2 DIABETES MELLITUS WITHOUT COMPLIC 09/12/2016 SRIDHAR BLACKP Ot I25.10 ATHSCL HEART DISEASE OF [place] CORONARY 09/12/2016 SRIDHAR BLACK SULFUR CHLORIDE OPERATOR Ot 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 [place] 09/12/2016 SRIDHAR BLACK SULFUR CHLORIDE OPERATOR Ot R06.02 SHORTNESS OF BREATH 09/12/2016 SRIDHAR BLACK SULFUR CHLORIDE OPERATOR Ot R07.89 OTHER CHEST PAIN 09/12/2016 SRIDHAR BLACK SULFUR CHLORIDE OPERATOR Ot T82.855A STENOSIS OF CORONARY ARTERY STENT, INITI 09/12/2016 SRIDHAR BLACK SULFUR CHLORIDE OPERATOR Ot Z79.84 [facility] (CURRENT) USE OF ORAL HYPOGLYC 09/12/2016 SRIDHAR BLACK SULFUR CHLORIDE OPERATOR Ot Z79.899 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 01 ENCNTR FOR REMOVAL OF INTERNAL FIXATION 09/21/2016 GABI VALENCIA MD Ot V72. 84 EXAM PRE-OPERATIVE NOS 09/21/2016 GABI VALENCIA MD Ot V74. 8 SCREEN-BACTERIAL DIS NEC 09/21/2016 ESTEVAN FERRO, CHAPO J Ot 162.9 MAL LAURA BRONCH/LUNG NOS 09/21/2016 VISHNU STARKS SULFUR CHLORIDE OPERATOR Ot 162.3 MAL LAURA UPPER LOBE LUNG 09/21/2016 VISHNU STARKS SULFUR CHLORIDE OPERATOR Ot 250.00 DIAB CHETNA WO COMPL, TYPE II OR UNSPEC TY 09/21/2016 VISHNU STARKS SULFUR CHLORIDE OPERATOR Ot 272.4 HYPERLIPIDEMIA NEC/NOS 09/21/2016 VISHNU STARKS SULFUR CHLORIDE OPERATOR Ot 414.00 CORON ATHEROSCLER NOS TYPE VESSEL, NATIV 09/21/2016 VISHNU STARKS SULFUR CHLORIDE OPERATOR Ot 793.0 NOSP (ABN) FINDINGS ON RADIOLOGICAL OT 09/21/2016 VISHNU STARKSP Ot V45.82 PERCUTANEOUS TRANSLUM CORON ANGIOPLASTY 09/21/2016 VISHNU STARKS SULFUR CHLORIDE OPERATOR Ot V58.69 OTH MED,LT,CURRENT USE 09/21/2016 BRANDY FERRO, [facility] Ot C34. 10 MALIGNANT NEOPLASM OF UPPER LOBE, UNSP B 09/21/2016 JAMMIE NAVA MD Ot E11. 9 TYPE 2 DIABETES MELLITUS WITHOUT COMPLIC 09/21/2016 JAMMIE NAVA MD Ot E78. 5 HYPERLIPIDEMIA, UNSPECIFIED 09/21/2016 JAMMIE NAVA MD Ot I25. 10 ATHSCL HEART DISEASE OF [place] CORONARY 09/21/2016 JAMMIE NAVA MD Ot Z51. 11 ENCOUNTER FOR ANTINEOPLASTIC CHEMOTHERAP 09/21/2016 JAMMIE NAVA MD Ot Z79.899 OTHER [facility] (CURRENT) DRUG THERAPY 09/21/2016 JAMMIE NAVA MD Ot Z98. 61 CORONARY ANGIOPLASTY STATUS 09/21/2016 SRIDHAR BLACK SULFUR CHLORIDE OPERATOR Ot E11.9 TYPE 2 DIABETES MELLITUS WITHOUT COMPLIC 09/21/2016 SRIDHAR BLACK SULFUR CHLORIDE OPERATOR Ot I25.10 ATHSCL HEART DISEASE OF [place] CORONARY 09/21/2016 SRIDHAR BLACK L SULFUR CHLORIDE OPERATOR Ot 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 [place] 09/21/2016 SRIDHAR BLACK L SULFUR CHLORIDE OPERATOR Ot R06.02 SHORTNESS OF BREATH 09/21/2016 SRIDHAR BLACK L SULFUR CHLORIDE OPERATOR Ot R07.89 OTHER CHEST PAIN 09/21/2016 SRIDHAR BLACK L SULFUR CHLORIDE OPERATOR Ot T82.855A STENOSIS OF CORONARY ARTERY STENT, INITI 09/21/2016 SRIDHAR BLACK L SULFUR CHLORIDE OPERATOR Ot Z79.84 [facility] (CURRENT) USE OF ORAL HYPOGLYC 09/21/2016 SRIDHAR BLACK L SULFUR CHLORIDE OPERATOR Ot Z79.899 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 (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) DRUG THERAPY 09/21/2016 SRIDHAR BLACK L SULFUR CHLORIDE OPERATOR Ot Z82.49 FAMILY HX OF [place] HEART DIS AND OTH DI 09/21/2016 SRIDHAR BLACK L SULFUR CHLORIDE OPERATOR Ot Z85.118 PERSONAL HISTORY OF MALIGNANT NEOPLASM O 09/21/2016 SRIDHAR BLACK L SULFUR CHLORIDE OPERATOR Ot Z87.891 PERSONAL HISTORY OF NICOTINE DEPENDENCE 09/21/2016 SRIDHAR BLACK L SULFUR CHLORIDE OPERATOR Ot Z90.2 ACQUIRED ABSENCE OF LUNG [PART OF] 09/21/2016 SRIDHAR BLACK L SULFUR CHLORIDE OPERATOR Ot Z92.21 PERSONAL HISTORY OF ANTINEOPLASTIC CHEMO 09/22/2016 AKANKSHA FERRO FACC, ALI FACP CCDS Ot C34.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, LEFT B 09/22/2016 AKANKSHA [facility] Ot E13.9 OTHER SPECIFIED DIABETES MELLITUS WITHOU 09/22/2016 AKANKSHA FERRO FACC, DELBERT FACP CCDS Ot E78.4 OTHER HYPERLIPIDEMIA 09/22/2016 AKANKSHA FERRO FACC, ALI FACP CCDS Ot I25.10 ATHSCL HEART DISEASE OF [place] CORONARY 09/22/2016 AKANKSHA FERRO FACC, ALI FACP CCDS Ot R00.2 PALPITATIONS 09/22/2016 AKANKSHA FERRO FACC, DELBERT FACP CCDS Ot R06.02 SHORTNESS OF BREATH 09/22/2016 AKANKSHA [facility]O [facility]ACC, [facility] Ot Z87.891 PERSONAL HISTORY OF NICOTINE DEPENDENCE 09/23/2016 SRIDHAR BLACK SULFUR CHLORIDE OPERATOR Ot E11.9 TYPE 2 DIABETES MELLITUS WITHOUT COMPLIC 09/23/2016 SRIDHAR BLACK SULFUR CHLORIDE OPERATOR Ot I25.10 ATHSCL HEART DISEASE OF [place] CORONARY 09/23/2016 SRIDHAR BLACK L SULFUR CHLORIDE OPERATOR Ot 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 [place] 09/23/2016 SRIDHAR BLACK SULFUR CHLORIDE OPERATOR Ot R06.02 SHORTNESS OF BREATH 09/23/2016 SRIDHAR BLACK SULFUR CHLORIDE OPERATOR Ot R07.89 OTHER CHEST PAIN 09/23/2016 SRIDHAR BLACK SULFUR CHLORIDE OPERATOR Ot T82.855A STENOSIS OF CORONARY ARTERY STENT, INITI 09/23/2016 SRIDHAR BLACK SULFUR CHLORIDE OPERATOR Ot Z79.84 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 (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) USE OF ORAL HYPOGLYC 09/23/2016 SRIDHAR BLACK L SULFUR CHLORIDE OPERATOR Ot Z79.899 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 (CURRENT) DRUG THERAPY 09/23/2016 SRIDHAR BLACK SULFUR CHLORIDE OPERATOR Ot Z82.49 FAMILY HX OF [place] HEART DIS AND OTH DI 09/23/2016 SRIDHAR BLACK L SULFUR CHLORIDE OPERATOR Ot Z85.118 PERSONAL HISTORY OF MALIGNANT NEOPLASM O 09/23/2016 SRIDHAR BLACK SULFUR CHLORIDE OPERATOR Ot Z87.891 PERSONAL HISTORY OF NICOTINE DEPENDENCE 09/23/2016 SRIDHAR BLACK L SULFUR CHLORIDE OPERATOR Ot Z90.2 ACQUIRED ABSENCE OF LUNG [PART OF] 09/23/2016 SRIDHAR BLACK L SULFUR CHLORIDE OPERATOR Ot Z92.21 PERSONAL HISTORY OF ANTINEOPLASTIC CHEMO 10/03/2016 AKANKSHA FERRO FACC, DELBERT FACP CCDS Ot C34.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, LEFT B 10/03/2016 AKANKSHA [facility]ERRO [facility]ACC, [facility] Ot E13.9 OTHER SPECIFIED DIABETES MELLITUS WITHOU 10/03/2016 AKANKSHA FERRO FACC, ALI FACP CCDS Ot E78.4 OTHER HYPERLIPIDEMIA 10/03/2016 AKANKSHA FERRO FACC, ALI FACP CCDS Ot I25.10 ATHSCL HEART DISEASE OF [place] CORONARY 10/03/2016 AKANKSHA FERRO FACC, [facility] Ot R00.2 PALPITATIONS 10/03/2016 AKANKSHA FERRO FACC, DELBERT FACP CCDS Ot R06.02 SHORTNESS OF BREATH 10/03/2016 [facility]ANKSHA [facility] Ot Z87.891 PERSONAL HISTORY OF NICOTINE DEPENDENCE 10/05/2016 SRIDHAR BLACK SULFUR CHLORIDE OPERATOR Ot E11.9 TYPE 2 DIABETES MELLITUS WITHOUT COMPLIC 10/05/2016 SRIDHAR BLACK L SULFUR CHLORIDE OPERATOR Ot I25.10 ATHSCL HEART DISEASE OF [place] CORONARY 10/05/2016 SRIDHAR BLACK L SULFUR CHLORIDE OPERATOR Ot 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 CALCIFIE 10/05/2016 SRIDHAR BLACK L SULFUR CHLORIDE OPERATOR Ot R06.02 SHORTNESS OF BREATH 10/05/2016 SRIDHAR BLACK L SULFUR CHLORIDE OPERATOR Ot R07.89 OTHER CHEST PAIN 10/05/2016 SRIDHAR BLACK L SULFUR CHLORIDE OPERATOR Ot T82.855A STENOSIS OF CORONARY ARTERY STENT, INITI 10/05/2016 SRIDHAR BLACK L SULFUR CHLORIDE OPERATOR Ot Z79.84 [facility] (CURRENT) USE OF ORAL HYPOGLYC 10/05/2016 SRIDHAR BLACK L SULFUR CHLORIDE OPERATOR Ot Z79.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 01 ENCNTR FOR REMOVAL OF INTERNAL FIXATION 03/08/2017 GABI VALENCIA MD Ot V72. 84 EXAM PRE-OPERATIVE NOS 03/08/2017 GABI VALENCIA MD Ot V74. 8 SCREEN-BACTERIAL DIS NEC 03/08/2017 ESTEVAN FERRO, CHAPO Lares Ot 162.9 MAL LAURA BRONCH/LUNG NOS 03/08/2017 VISHNU STARKS SULFUR CHLORIDE OPERATOR Ot 162.3 MAL LAURA UPPER LOBE LUNG 03/08/2017 VISHNU STARKS SULFUR CHLORIDE OPERATOR Ot 250.00 DIAB CHETNA WO COMPL, TYPE II OR UNSPEC TY 03/08/2017 VISHNU STARKS SULFUR CHLORIDE OPERATOR Ot 272.4 HYPERLIPIDEMIA NEC/NOS 03/08/2017 VISHNU STARKS SULFUR CHLORIDE OPERATOR Ot 414.00 CORON ATHEROSCLER NOS TYPE VESSEL, NATIV 03/08/2017 VISHNU STARKS SULFUR CHLORIDE OPERATOR Ot 793.0 NOSP (ABN) FINDINGS ON RADIOLOGICAL OT 03/08/2017 VISHNU STARKSP Ot V45.82 PERCUTANEOUS TRANSLUM CORON ANGIOPLASTY 03/08/2017 VISHNU STARKSP Ot V58.69 OT MED,LT,CURRENT USE 03/08/2017 JAMMIE NAVA MD Ot C34. 10 MALIGNANT NEOPLASM OF UPPER LOBE, UNSP B 03/08/2017 JAMMIE NAVA MD Ot E11. 9 TYPE 2 DIABETES MELLITUS WITHOUT COMPLIC 03/08/2017 JAMMIE NAVA MD Ot E78. 5 HYPERLIPIDEMIA, UNSPECIFIED 03/08/2017 JAMMIE NAVA MD Ot I25. 10 ATHSCL HEART DISEASE OF [place] CORONARY 03/08/2017 JAMMIE NAVA MD Ot Z51. 11 ENCOUNTER FOR ANTINEOPLASTIC CHEMOTHERAP 03/08/2017 JAMMIE NAVA MD Ot Z79.899 OTHER [facility] (CURRENT) DRUG THERAPY 03/08/2017 JAMMIE NAVA MD Ot Z98. 61 CORONARY ANGIOPLASTY STATUS 03/08/2017 AKANKSHA FERRO FACC, DELBERT GOEL CCDS Ot C34.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, LEFT B 03/08/2017 AKANKSHA FERRO FACC, ALI FACP CCDS Ot E13.9 OTHER SPECIFIED DIABETES MELLITUS WITHOU 03/08/2017 AKANKSHA FERRO FACC, ALI TRISHP CCDS Ot E78.4 OTHER HYPERLIPIDEMIA 03/08/2017 [facility]SHA [facility], [facility] Ot I25.10 ATHSCL HEART DISEASE OF [place] CORONARY 03/08/2017 AKANKSHA [facility], ALI FACP CCDS Ot R00.2 PALPITATIONS 03/08/2017 AKANKSHA [facility], ALI FACP CCDS Ot R06.02 SHORTNESS OF BREATH 03/08/2017 AKANKSHA [facility], ALI FACP CCDS Ot Z87.891 PERSONAL HISTORY OF NICOTINE DEPENDENCE 12/31/2017 GABI VALENCIA MD Ot V54. 01 ENCNTR FOR REMOVAL OF INTERNAL FIXATION 12/31/2017 GABI VALENCIA MD Ot V72. 84 EXAM PRE-OPERATIVE NOS 12/31/2017 GABI VALENCIA MD Ot V74. 8 SCREEN-BACTERIAL DIS NEC 12/31/2017 ESTEVAN FERRO, CHAPO J Ot 162.9 MAL LAURA BRONCH/LUNG NOS 12/31/2017 VISHNU STARKS SULFUR CHLORIDE OPERATOR Ot 162.3 MAL LAURA UPPER LOBE LUNG 12/31/2017 VISHNU STARKS SULFUR CHLORIDE OPERATOR Ot 250.00 DIAB CHETNA WO COMPL, TYPE II OR UNSPEC TY 12/31/2017 VISHNU STARKS S SULFUR CHLORIDE OPERATOR Ot 272.4 HYPERLIPIDEMIA NEC/NOS 12/31/2017 VISHNU STARKS SULFUR CHLORIDE OPERATOR Ot 414.00 CORON ATHEROSCLER NOS TYPE VESSEL, NATIV 12/31/2017 VISHNU STARKS SULFUR CHLORIDE OPERATOR Ot 793.0 NOSP (ABN) FINDINGS ON RADIOLOGICAL OT 12/31/2017 VISHNU STARKS SULFUR CHLORIDE OPERATOR Ot V45.82 PERCUTANEOUS TRANSLUM CORON ANGIOPLASTY 12/31/2017 VISHNU STARKS SULFUR CHLORIDE OPERATOR Ot V58.69 OT MED,LT,CURRENT USE 12/31/2017 JAMMIE NAVA MD Ot C34. 10 MALIGNANT NEOPLASM OF UPPER LOBE, UNSP B 12/31/2017 JAMMIE NAVA MD Ot E11. 9 TYPE 2 DIABETES MELLITUS WITHOUT COMPLIC 12/31/2017 JAMMIE NAVA MD Ot E78. 5 HYPERLIPIDEMIA, UNSPECIFIED 12/31/2017 JAMMIE NAVA MD Ot I25. 10 ATHSCL HEART DISEASE OF [place] CORONARY 12/31/2017 JAMMIE NAVA MD Ot Z51. 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 61 CORONARY ANGIOPLASTY STATUS 12/31/2017 AKANKSHA [facility], ALI FACP CCDS Ot C34.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, LEFT B 12/31/2017 AKANKSHA FERRO FAC, ALI FACP CCDS Ot E13.9 OTHER SPECIFIED DIABETES MELLITUS WITHOU 12/31/2017 AKANKSHA FERRO FACC, ALI FACP CCDS Ot E78.4 OTHER HYPERLIPIDEMIA 12/31/2017 [facility], ALI FACP CCDS Ot I25.10 ATHSCL HEART DISEASE OF [place] CORONARY 12/31/2017 [facility], ALI FACP CCDS Ot R00.2 PALPITATIONS 12/31/2017 [facility], ALI FACP CCDS Ot R06.02 SHORTNESS OF BREATH 12/31/2017 AKANKSHA [facility], ALI FACP CCDS Ot Z87.891 PERSONAL HISTORY OF NICOTINE DEPENDENCE 01/01/2018 SRAVAN LOEV MD Ot E11 .9 TYPE 2 DIABETES MELLITUS WITHOUT COMPLIC 01/01/2018 SRAVAN LOVE MD Ot E78.00 PURE HYPERCHOLESTEROLEMIA, UNSPECIFIED 01/01/2018 SRAVAN LOVE MD Ot F17.210 NICOTINE DEPENDENCE, CIGARETTES, UNCOMPL 01/01/2018 SRAVAN LOVE MD Ot G45 .9 TRANSIENT CEREBRAL ISCHEMIC ATTACK, UNSP 01/01/2018 SRAVAN LOVE MD Ot H91.90 UNSPECIFIED HEARING LOSS, UNSPECIFIED EA 01/01/2018 SRAVAN LOVE MD Ot I25.10 ATHSCL HEART DISEASE OF [place] CORONARY 01/01/2018 SRAVAN LOVE MD Ot I69.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 01/01/2018 SRAVAN LOVE MD Ot K21 .9 GASTRO-ESOPHAGEAL REFLUX DISEASE WITHOUT 01/01/2018 SRAVAN LOVE MD Ot Z79.84 [facility] (CURRENT) USE OF ORAL HYPOGLYC 01/01/2018 SRAVAN LOVE MD Ot Z79.899 OTHER [facility] (CURRENT) DRUG THERAPY 01/01/2018 SRAVAN LOVE MD Ot Z85.118 PERSONAL HISTORY OF MALIGNANT NEOPLASM O 01/01/2018 SRAVAN LOVE MD Ot Z92.21 PERSONAL HISTORY OF ANTINEOPLASTIC CHEMO 01/01/2018 SRAVAN LOVE MD Ot Z95 .5 PRESENCE OF CORONARY ANGIOPLASTY IMPLANT 01/01/2018 SRAVAN LOVE MD Ot E11 .9 TYPE 2 DIABETES MELLITUS WITHOUT COMPLIC 01/01/2018 SRAVAN LOVE MD Ot E78.00 PURE HYPERCHOLESTEROLEMIA, UNSPECIFIED 01/01/2018 SRAVAN LOVE MD Ot F17.210 NICOTINE DEPENDENCE, CIGARETTES, UNCOMPL 01/01/2018 SRAVAN LOVE MD Ot G45 .9 TRANSIENT CEREBRAL ISCHEMIC ATTACK, UNSP 01/01/2018 SRAVAN LOVE MD Ot H91.90 UNSPECIFIED HEARING LOSS, UNSPECIFIED EA 01/01/2018 SRAVAN LOVE MD Ot I25.10 ATHSCL HEART DISEASE OF [place] CORONARY 01/01/2018 SRAVAN LOVE MD Ot I69.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 01/01/2018 SRAVAN LOVE MD Ot K21 .9 GASTRO-ESOPHAGEAL REFLUX DISEASE WITHOUT 01/01/2018 SRAVAN LOVE MD Ot Z79.84 AUTOMOBILE 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 (CURRENT) USE OF ORAL HYPOGLYC 01/01/2018 SRAVAN LOVE MD Ot Z79.899 OTHER [facility] (CURRENT) DRUG THERAPY 01/01/2018 SRAVAN LOVE MD Ot Z85.118 PERSONAL HISTORY OF MALIGNANT NEOPLASM O 01/01/2018 SRAVAN LOVE MD Ot Z92.21 PERSONAL HISTORY OF ANTINEOPLASTIC CHEMO 01/01/2018 SRAVAN LOVE MD Ot Z95 .5 PRESENCE OF CORONARY ANGIOPLASTY IMPLANT 01/03/2018 SRAVAN LOVE MD Ot E11 .9 TYPE 2 DIABETES MELLITUS WITHOUT COMPLIC 01/03/2018 SRAVAN LOVE MD Ot E78.00 PURE HYPERCHOLESTEROLEMIA, UNSPECIFIED 01/03/2018 SRAVAN LOVE MD Ot F17.210 NICOTINE DEPENDENCE, CIGARETTES, UNCOMPL 01/03/2018 SRAVAN LOVE MD Ot G45 .9 TRANSIENT CEREBRAL ISCHEMIC ATTACK, UNSP 01/03/2018 SRAVAN LOVE MD Ot H91.90 UNSPECIFIED HEARING LOSS, UNSPECIFIED EA 01/03/2018 SRAVAN LOVE MD Ot I25.10 ATHSCL HEART DISEASE OF [place] CORONARY 01/03/2018 SRAVAN LOVE MD Ot I69.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 01/03/2018 SRAVAN LOVE MD, Ot K21 .9 GASTRO-ESOPHAGEAL REFLUX DISEASE WITHOUT 01/03/2018 SRAVAN LOVE MD Ot Z79.84 [facility] (CURRENT) USE OF ORAL HYPOGLYC 01/03/2018 SRAVAN LOVE MD Ot Z79.899 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 (CURRENT) DRUG THERAPY 01/03/2018 SRAVAN LOVE MD Ot Z85.118 PERSONAL HISTORY OF MALIGNANT NEOPLASM O 01/03/2018 SRAVAN LOVE MD Ot Z92.21 PERSONAL HISTORY OF ANTINEOPLASTIC CHEMO 01/03/2018 SRAVAN LOVE MD Ot Z95 .5 PRESENCE OF CORONARY ANGIOPLASTY IMPLANT 01/03/2018 SRAVAN LOVE MD Ot E11 .9 TYPE 2 DIABETES MELLITUS WITHOUT COMPLIC 01/03/2018 SRAVAN LOVE MD Ot E78.00 PURE HYPERCHOLESTEROLEMIA, UNSPECIFIED 01/03/2018 SRAVAN LOVE MD Ot F17.210 NICOTINE DEPENDENCE, CIGARETTES, UNCOMPL 01/03/2018 SRAVAN LOVE MD Ot G45 .9 TRANSIENT CEREBRAL ISCHEMIC ATTACK, UNSP 01/03/2018 SRAVAN LOVE MD Ot H91.90 UNSPECIFIED HEARING LOSS, UNSPECIFIED EA 01/03/2018 SRAVAN LOVE MD Ot I25.10 ATHSCL HEART DISEASE OF [place] CORONARY 01/03/2018 SRAVAN LOVE MD Ot I69.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 01/03/2018 SRAVAN LOVE MD Ot K21 .9 GASTRO-ESOPHAGEAL REFLUX DISEASE WITHOUT 01/03/2018 SRAVAN LOVE MD Ot Z79.84 AUTOMOBILE 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 (CURRENT) USE OF ORAL HYPOGLYC 01/03/2018 SRAVAN LOVE MD Ot Z79.899 OTHER [facility] (CURRENT) DRUG THERAPY 01/03/2018 SRAVAN LOVE MD Ot Z85.118 PERSONAL HISTORY OF MALIGNANT NEOPLASM O 01/03/2018 SRAVAN LOVE MD Ot Z92.21 PERSONAL HISTORY OF ANTINEOPLASTIC CHEMO 01/03/2018 SRAVAN LOVE MD Ot Z95 .5 PRESENCE OF CORONARY ANGIOPLASTY IMPLANT 03/05/2018 AGBI VALENCIA MD Ot V54. 01 ENCNTR FOR REMOVAL OF INTERNAL FIXATION 03/05/2018 GABI VALENCIA MD Ot V72. 84 EXAM PRE-OPERATIVE NOS 03/05/2018 GABI VALENCIA MD Ot V74. 8 SCREEN-BACTERIAL DIS NEC 03/05/2018 ESTEVAN FERRO, CHAPO Lares Ot 162.9 MAL LAURA BRONCH/LUNG NOS 03/05/2018 VISHNU STARKS SULFUR CHLORIDE OPERATOR Ot 162.3 MAL LAURA UPPER LOBE LUNG 03/05/2018 VISHNU STARKS SULFUR CHLORIDE OPERATOR Ot 250.00 DIAB CHETNA WO COMPL, TYPE II OR UNSPEC TY 03/05/2018 VISHNU STARKS SULFUR CHLORIDE OPERATOR Ot 272.4 HYPERLIPIDEMIA NEC/NOS 03/05/2018 VISHNU STARKS SULFUR CHLORIDE OPERATOR Ot 414.00 CORON ATHEROSCLER NOS TYPE VESSEL, NATIV 03/05/2018 VISHNU STARKS SULFUR CHLORIDE OPERATOR Ot 793.0 NOSP (ABN) FINDINGS ON RADIOLOGICAL OT 03/05/2018 VISHNU STARKSP Ot V45.82 PERCUTANEOUS TRANSLUM CORON ANGIOPLASTY 03/05/2018 VISHNU STARKSP Ot V58.69 OT MED,LT,CURRENT USE 03/05/2018 JAMMIE NAVA MD Ot C34. 10 MALIGNANT NEOPLASM OF UPPER LOBE, UNSP B 03/05/2018 JAMMIE NAVA MD Ot E11. 9 TYPE 2 DIABETES MELLITUS WITHOUT COMPLIC 03/05/2018 JAMMIE NAVA MD Ot E78. 5 HYPERLIPIDEMIA, UNSPECIFIED 03/05/2018 JAMMIE NAVA MD Ot I25. 10 ATHSCL HEART DISEASE OF [place] CORONARY 03/05/2018 JAMMIE NAVA MD Ot Z51. 11 ENCOUNTER FOR ANTINEOPLASTIC CHEMOTHERAP 03/05/2018 JAMMIE NAVA MD Ot Z79.899 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 (CURRENT) DRUG THERAPY 03/05/2018 JAMMIE NAVA MD Ot Z98. 61 CORONARY ANGIOPLASTY STATUS 03/05/2018 [facility]ANKSHA [facility], DELBERT GOEL CCDS Ot C34.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, LEFT B 03/05/2018 [facility], ALI FACP CCDS Ot E13.9 OTHER SPECIFIED DIABETES MELLITUS WITHOU 03/05/2018 [facility], ALI FACP CCDS Ot E78.4 OTHER HYPERLIPIDEMIA 03/05/2018 [facility], ALI FACP CCDS Ot I25.10 ATHSCL HEART DISEASE OF [place] CORONARY 03/05/2018 [facility], ALI FACP CCDS Ot R00.2 PALPITATIONS 03/05/2018 [facility], ALI FACP CCDS Ot R06.02 SHORTNESS OF BREATH 03/05/2018 [facility], ALI FACP CCDS Ot Z87.891 PERSONAL HISTORY OF NICOTINE DEPENDENCE 03/07/2018 LISSA OATES INDUSTRIAL CLEANING TECHNICIAN Ot G47.30 SLEEP APNEA, UNSPECIFIED 03/07/2018 VIKTOR OATESINE E INDUSTRIAL CLEANING TECHNICIAN Ot J44.9 CHRONIC OBSTRUCTIVE PULMONARY DISEASE, U 03/07/2018 LISSA OATES INDUSTRIAL CLEANING TECHNICIAN Ot R06.02 SHORTNESS OF BREATH 03/07/2018 LISSA OATES INDUSTRIAL CLEANING TECHNICIAN Ot Z72.0 TOBACCO USE 03/07/2018 LISSA OATES INDUSTRIAL CLEANING TECHNICIAN Ot Z85.118 PERSONAL HISTORY OF MALIGNANT NEOPLASM O 03/12/2018 VIKTOR OATESINE E INDUSTRIAL CLEANING TECHNICIAN Ot C34.90 MALIGNANT NEOPLASM OF UNSP PART OF UNSP 03/12/2018 VIKTOR OATESINE E INDUSTRIAL CLEANING TECHNICIAN Ot G47.30 SLEEP APNEA, UNSPECIFIED 03/12/2018 VIKTOR OATESINE E INDUSTRIAL CLEANING TECHNICIAN Ot J43.9 EMPHYSEMA, UNSPECIFIED 03/12/2018 VIKTOR OATESINE E INDUSTRIAL CLEANING TECHNICIAN Ot K76.0 FATTY (CHANGE OF) LIVER, NOT ELSEWHERE C 03/12/2018 VIKTOR OATESINE E INDUSTRIAL CLEANING TECHNICIAN Ot Z72.0 TOBACCO USE 03/12/2018 LISSA OATES INDUSTRIAL CLEANING TECHNICIAN Ot C34.90 MALIGNANT NEOPLASM OF UNSP PART OF UNSP 03/12/2018 VIKTOR OATESINE E INDUSTRIAL CLEANING TECHNICIAN Ot G47.30 SLEEP APNEA, UNSPECIFIED 03/12/2018 VIKTOR OATESINE E INDUSTRIAL CLEANING TECHNICIAN Ot J43.9 EMPHYSEMA, UNSPECIFIED 03/12/2018 VIKTOR OATESINE E INDUSTRIAL CLEANING TECHNICIAN Ot K76.0 FATTY (CHANGE OF) LIVER, NOT ELSEWHERE C 03/12/2018 VIKTOR OATESINE E INDUSTRIAL CLEANING TECHNICIAN Ot Z72.0 TOBACCO USE 03/19/2018 [facility], ALI FACP CCDS Ot G45.9 TRANSIENT CEREBRAL ISCHEMIC ATTACK, UNSP 03/19/2018 [facility], ALI FACP CCDS Ot R00.2 PALPITATIONS 03/20/2018 [facility], ALI FACP CCDS Ot E11.9 TYPE 2 DIABETES MELLITUS WITHOUT COMPLIC 03/20/2018 [facility], ALI FACP CCDS Ot G47.33 OBSTRUCTIVE SLEEP APNEA (ADULT) (PEDIATR 03/20/2018 [facility], ALI FACP CCDS Ot I25.10 ATHSCL HEART DISEASE OF [place] CORONARY 03/20/2018 [facility], ALI FACP CCDS Ot K21.9 GASTRO-ESOPHAGEAL REFLUX DISEASE WITHOUT 03/20/2018 [facility], ALI FACP CCDS Ot R00.2 PALPITATIONS 03/20/2018 [facility], ALI FACP CCDS Ot Z79.82 [facility] (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 03/20/2018 [facility], ALI FACP CCDS Ot Z79.84 AUTOMOBILE 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 (CURRENT) USE OF ORAL HYPOGLYC 03/20/2018 [facility]ANKSHA [facility], ALI FACP CCDS Ot Z79.899 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 (CURRENT) DRUG THERAPY 03/20/2018 [facility], [...] HISTORY OF NICOTINE DEPENDENCE 03/20/2018 [facility]SHA [facility], ALI FACP CCDS Ot Z95.5 PRESENCE OF CORONARY ANGIOPLASTY IMPLANT 03/29/2018 GABI VALENCIA MD Ot V54. 01 ENCNTR FOR REMOVAL OF INTERNAL FIXATION 03/29/2018 GABI VALENCIA MD Ot V72. 84 EXAM PRE-OPERATIVE NOS 03/29/2018 GABI VALENCIA MD Ot V74. 8 SCREEN-BACTERIAL DIS NEC 03/29/2018 CHAPO BARRETO MD Ot 162.9 MAL LAURA BRONCH/LUNG NOS 03/29/2018 VISHNU STARKS SULFUR CHLORIDE OPERATOR Ot 162.3 MAL LAURA UPPER LOBE LUNG 03/29/2018 VISHNU STARKS SULFUR CHLORIDE OPERATOR Ot 250.00 DIAB CHETNA WO COMPL, TYPE II OR UNSPEC TY 03/29/2018 VISHNU STARKS SULFUR CHLORIDE OPERATOR Ot 272.4 HYPERLIPIDEMIA NEC/NOS 03/29/2018 VISHNU STARKS SULFUR CHLORIDE OPERATOR Ot 414.00 CORON ATHEROSCLER NOS TYPE VESSEL, NATIV 03/29/2018 VISHNU STARKS SULFUR CHLORIDE OPERATOR Ot 793.0 NOSP (ABN) FINDINGS ON RADIOLOGICAL OT 03/29/2018 VISHNU STARKS SULFUR CHLORIDE OPERATOR Ot V45.82 PERCUTANEOUS TRANSLUM CORON ANGIOPLASTY 03/29/2018 VISHNU STARKS SULFUR CHLORIDE OPERATOR Ot V58.69 OT MED,LT,CURRENT USE 03/29/2018 JAMMIE NAVA MD Ot C34. 10 MALIGNANT NEOPLASM OF UPPER LOBE, UNSP B 03/29/2018 JAMMIE NAVA MD Ot E11. 9 TYPE 2 DIABETES MELLITUS WITHOUT COMPLIC 03/29/2018 JAMMIE NAVA MD Ot E78. 5 HYPERLIPIDEMIA, UNSPECIFIED 03/29/2018 JAMMIE NAVA MD Ot I25. 10 ATHSCL HEART DISEASE OF [place] CORONARY 03/29/2018 JAMMIE NAVA MD Ot Z51. 11 ENCOUNTER FOR ANTINEOPLASTIC CHEMOTHERAP 03/29/2018 JAMMIE NAVA MD Ot Z79.899 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 (CURRENT) DRUG THERAPY 03/29/2018 JAMMIE NAVA MD Ot Z98. 61 CORONARY ANGIOPLASTY STATUS 03/29/2018 AKANKSHA [facility], DELBERT CHAMBERSP CCDS Ot C34.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, LEFT B 03/29/2018 AKANKSHA [facility]ERRO F[facility], DELBERT CHAMBERSP CCDS Ot E13.9 OTHER SPECIFIED DIABETES MELLITUS WITHOU 03/29/2018 AKANKSHA FERRO FACC, DELBERT FACP CCDS Ot E78.4 OTHER HYPERLIPIDEMIA 03/29/2018 AKANKSHA FERRO FACC, DELBERT CHAMBERSP CCDS Ot I25.10 ATHSCL HEART DISEASE OF [place] CORONARY 03/29/2018 AKANKSHA [facility]ERRO [facility], DELBERT FACP CCDS Ot R00.2 PALPITATIONS 03/29/2018 AKANKSHA [facility]ERRO [facility], DELBERT FACP CCDS Ot R06.02 SHORTNESS OF BREATH 03/29/2018 AKANKSHA [facility]ERRO [facility], DELBERT FACP CCDS Ot Z87.891 PERSONAL HISTORY OF NICOTINE DEPENDENCE 03/29/2018 LISSA OATES APRN Ot G47.30 SLEEP APNEA, UNSPECIFIED 03/29/2018 LISSA OATES INDUSTRIAL CLEANING TECHNICIAN Ot J44.9 CHRONIC OBSTRUCTIVE PULMONARY DISEASE, U 03/29/2018 LISSA OATES INDUSTRIAL CLEANING TECHNICIAN Ot R06.02 SHORTNESS OF BREATH 03/29/2018 LISSA OATES INDUSTRIAL CLEANING TECHNICIAN Ot Z72.0 TOBACCO USE 03/29/2018 LISSA OATES INDUSTRIAL CLEANING TECHNICIAN Ot Z85.118 PERSONAL HISTORY OF MALIGNANT NEOPLASM O 03/29/2018 LISSA OATES INDUSTRIAL CLEANING TECHNICIAN Ot C34.90 MALIGNANT NEOPLASM OF UNSP PART OF UNSP 03/29/2018 LISSA OATES INDUSTRIAL CLEANING TECHNICIAN Ot G47.30 SLEEP APNEA, UNSPECIFIED 03/29/2018 LISSA OATES INDUSTRIAL CLEANING TECHNICIAN Ot J43.9 EMPHYSEMA, UNSPECIFIED 03/29/2018 LISSA OATES INDUSTRIAL CLEANING TECHNICIAN Ot K76.0 FATTY (CHANGE OF) LIVER, NOT ELSEWHERE C 03/29/2018 LISSA OATES INDUSTRIAL CLEANING TECHNICIAN Ot Z72.0 TOBACCO USE 03/29/2018 AKANKSHA FERRO F[facility], DELBERT FACP CCDS Ot E11.9 TYPE 2 DIABETES MELLITUS WITHOUT COMPLIC 03/29/2018 DELBERT VALE MD, FACC FACP CCDS Ot G47.33 OBSTRUCTIVE SLEEP APNEA (ADULT) (PEDIATR 03/29/2018 AKANKSHA FERRO FACC, DELBERT FACP CCDS Ot I25.10 ATHSCL HEART DISEASE OF [place] CORONARY 03/29/2018 AKANKSHA FERRO FACC, DELBERT FACP CCDS Ot K21.9 GASTRO-ESOPHAGEAL REFLUX DISEASE WITHOUT 03/29/2018 AKANKHSA FERRO FACC, DELBERT FACP CCDS Ot R00.2 PALPITATIONS 03/29/2018 AKANKSHA FERRO FACC, DELBERT FACP CCDS Ot Z79.82 AUTOMOBILE 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 (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 03/29/2018 DELBERT VALE MD, FACC FACP CCDS Ot Z79.84 [facility] (CURRENT) USE OF ORAL HYPOGLYC 03/29/2018 DELBERT VALE MD, FACC FACP CCDS Ot Z79.899 OTHER [facility] (CURRENT) DRUG THERAPY 03/29/2018 DELBERT VALE MD, FACC FACP CCDS Ot Z82.49 FAMILY HX OF ISCHEM HEART DIS AND OTH DI 03/29/2018 DELBERT VALE MD, FACC FACP CCDS Ot Z85.118 PERSONAL HISTORY OF MALIGNANT NEOPLASM O 03/29/2018 AKANKSHA [facility]O [facility], ALI FACP CCDS Ot Z86.73 PRSNL HX OF TIA (TIA), AND CEREB INFRC W 03/29/2018 AKANKSHA FERRO FAC, ALI FACP CCDS Ot Z87.891 PERSONAL HISTORY OF NICOTINE DEPENDENCE 03/29/2018 AKANKSHA [facility]ERRO FAC, ALI FACP CCDS Ot Z95.5 PRESENCE OF CORONARY ANGIOPLASTY IMPLANT 03/29/2018 JAMMIE NAVA MD Ot C34. 10 MALIGNANT NEOPLASM OF UPPER LOBE, UNSP B 03/29/2018 JAMMIE NAVA MD, Ot E11. 9 TYPE 2 DIABETES MELLITUS WITHOUT COMPLIC 03/29/2018 JAMMIE NAVA MD, Ot E78. 5 HYPERLIPIDEMIA, UNSPECIFIED 03/29/2018 JAMMIE NAVA MD, Ot I25. 10 ATHSCL HEART DISEASE OF [place] CORONARY 03/29/2018 JAMMIE NAVA MD, Ot Z51. 11 ENCOUNTER FOR ANTINEOPLASTIC CHEMOTHERAP 03/29/2018 JAMMIE NAVA MD, Ot Z79.899 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 (CURRENT) DRUG THERAPY 03/29/2018 JAMMIE NAVA MD Ot Z98. 61 CORONARY ANGIOPLASTY STATUS 03/29/2018 ADRIEL WHEELER MD Ot D11 .9 BENIGN NEOPLASM OF [place], 03/29/2018 ADRIEL WHEELER MD Ot Z01.812 ENCOUNTER FOR PREPROCEDURAL LABORATORY E 03/29/2018 ADRIEL WHEELER MD Ot Z11 .2 ENCOUNTER FOR SCREENING FOR OTHER BACTER 04/02/2018 ADRIEL WHEELER MD Ot D11 .9 BENIGN NEOPLASM OF [place]OR [place], 04/02/2018 ADRIEL WHEELER MD Ot Z01.812 ENCOUNTER FOR PREPROCEDURAL LABORATORY E 04/02/2018 ADRIEL WHEELER MD Ot Z11 .2 ENCOUNTER FOR SCREENING FOR OTHER BACTER 04/06/2018 ADRIEL WHEELER MD Ot D11 .0 BENIGN NEOPLASM OF PAR[place] GL[place] 04/06/2018 ADRIEL WHEELER MD Ot E11 .9 TYPE 2 DIABETES MELLITUS WITHOUT COMPLIC 04/06/2018 ADRIEL WHEELER MD Ot G47.33 OBSTRUCTIVE SLEEP APNEA (ADULT) (PEDIATR 04/06/2018 ADRIEL WHEELER MD Ot I25.10 ATHSCL HEART DISEASE OF [place] CORONARY 04/06/2018 ADRIEL WHEELER MD Ot J44 .9 CHRONIC OBSTRUCTIVE PULMONARY DISEASE, U 04/06/2018 ADRIEL WHEELER MD, Ot K21 .9 GASTRO-ESOPHAGEAL REFLUX DISEASE WITHOUT 04/06/2018 ADRIEL WHEELER MD, Ot Z79.82 [facility] (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 04/06/2018 ADRIEL WHEELER MD Ot Z79.84 AUTOMOBILE 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 (CURRENT) USE OF ORAL HYPOGLYC 04/06/2018 ADRIEL WHEELER MD, Ot Z79.899 OTHER [facility] (CURRENT) DRUG THERAPY 04/06/2018 ADRIEL WHEELER MD, Ot Z86.73 PRSNL HX OF TIA (TIA), AND CEREB INFRC W 04/06/2018 ADRIEL WHEELER MD, Ot Z87.891 PERSONAL HISTORY OF NICOTINE DEPENDENCE 05/29/2018 LISSA OATES INDUSTRIAL CLEANING TECHNICIAN Ot C34.90 MALIGNANT NEOPLASM OF UNSP PART OF UNSP 05/29/2018 LISSA OATES INDUSTRIAL CLEANING TECHNICIAN Ot G47.30 SLEEP APNEA, UNSPECIFIED 05/29/2018 LISSA OATES INDUSTRIAL CLEANING TECHNICIAN Ot J43.9 EMPHYSEMA, UNSPECIFIED 05/29/2018 LISSA OATES INDUSTRIAL CLEANING TECHNICIAN Ot K76.0 FATTY (CHANGE OF) LIVER, NOT ELSEWHERE C 05/29/2018 LISSA OATES INDUSTRIAL CLEANING TECHNICIAN Ot Z72.0 TOBACCO USE 05/29/2018 AKANKSHA FERRO FACC, DELBERT FACP CCDS Ot E11.9 TYPE 2 DIABETES MELLITUS WITHOUT COMPLIC 05/29/2018 AKANKSHA FERRO FACC, DELBERT FACP CCDS Ot G47.33 OBSTRUCTIVE SLEEP APNEA (ADULT) (PEDIATR 05/29/2018 AKANKSHA FERRO FACC, ALI FACP CCDS Ot I25.10 ATHSCL HEART DISEASE OF [place] CORONARY 05/29/2018 AKANKSHA FERRO FACC, DELBERT FACP CCDS Ot K21.9 GASTRO-ESOPHAGEAL REFLUX DISEASE WITHOUT 05/29/2018 AKANKSHA FERRO FACC, DELBERT FACP CCDS Ot R00.2 PALPITATIONS 05/29/2018 AKANKSHA FERRO FACC, DELBERT FACP CCDS Ot Z79.82 AUTOMOBILE 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 (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 05/29/2018 AKANKSHA FERRO FACC, DELBERT FACP CCDS Ot Z79.84 AUTOMOBILE 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 (CURRENT) USE OF ORAL HYPOGLYC 05/29/2018 AKANKSHA FERRO FACC, ALI FACP CCDS Ot Z79.899 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 (CURRENT) DRUG THERAPY 05/29/2018 AKANKSHA FERRO FACC, DELBERT FACP CCDS Ot Z82.49 FAMILY HX OF ISCHEM HEART DIS AND OTH DI 05/29/2018 AKANKSHA [facility]O FAC, [facility] Ot Z85.118 PERSONAL HISTORY OF MALIGNANT NEOPLASM O 05/29/2018 AKANKSHA CHAMBERS, DELBERT FACP CCDS Ot Z86.73 PRSNL HX OF TIA (TIA), AND CEREB INFRC W 05/29/2018 AKANKSHA [facility]ERRO FAC, ALI [facility] CCD[facility] Ot Z87.891 PERSONAL HISTORY OF NICOTINE DEPENDENCE 05/29/2018 AKANKSHA CHAMBERS, ALI FACP CCDS Ot Z95.5 PRESENCE OF CORONARY ANGIOPLASTY IMPLANT 06/12/2018 LISSA OATES INDUSTRIAL CLEANING TECHNICIAN Ot C34.90 MALIGNANT NEOPLASM OF UNSP PART OF [facility] 06/12/2018 LISSA OATES APRN Ot G47.30 SLEEP APNEA, UNSPECIFIED 06/12/2018 LISSA OATES INDUSTRIAL CLEANING TECHNICIAN Ot J43.9 EMPHYSEMA, UNSPECIFIED 06/12/2018 LISSA OATES INDUSTRIAL CLEANING TECHNICIAN Ot K76.0 FATTY (CHANGE OF) LIVER, NOT ELSEWHERE C 06/12/2018 LISSA OATES INDUSTRIAL CLEANING TECHNICIAN Ot Z72.0 TOBACCO USE 06/14/2018 PAMELA RAMSEY SULFUR CHLORIDE OPERATOR Ot K59. 09 OTHER CONSTIPATION 06/14/2018 PAMELA RAMSEY SULFUR CHLORIDE OPERATOR Ot M43.8X6 OTHER SPECIFIED DEFORMING DORSOPATHIES, 06/14/2018 PAMELA RAMSEY SULFUR CHLORIDE OPERATOR Ot M47.816 SPONDYLOSIS W/O MYELOPATHY OR RADICULOPA 07/15/2018 LISSA OATES INDUSTRIAL CLEANING TECHNICIAN Ot C34.90 MALIGNANT NEOPLASM OF UNSP PART OF [facility] 07/15/2018 LISSA OATES APRN Ot G47.30 SLEEP APNEA, UNSPECIFIED 07/15/2018 LISSA OATES INDUSTRIAL CLEANING TECHNICIAN Ot J43.9 EMPHYSEMA, UNSPECIFIED 07/15/2018 LISSA OATES APRN Ot K76.0 FATTY (CHANGE OF) LIVER, NOT ELSEWHERE C 07/15/2018 LISSA OATES INDUSTRIAL CLEANING TECHNICIAN Ot Z72.0 TOBACCO USE 07/15/2018 LISSA OATES INDUSTRIAL CLEANING TECHNICIAN Ot C34.90 MALIGNANT NEOPLASM OF UNSP PART OF [facility] 07/15/2018 LISSA OATES INDUSTRIAL CLEANING TECHNICIAN Ot G47.30 SLEEP APNEA, UNSPECIFIED 07/15/2018 LISSA OATES APRN Ot J43.9 EMPHYSEMA, UNSPECIFIED 07/15/2018 LISSA OATES APRN Ot K76.0 FATTY (CHANGE OF) LIVER, NOT ELSEWHERE C 07/15/2018 LISSA OATES APRN Ot Z72.0 TOBACCO USE 07/29/2018 PAMELA RAMSEYP Ot K59. 09 OTHER CONSTIPATION 07/29/2018 PAMELA RAMSEY SULFUR CHLORIDE OPERATOR Ot M43.8X6 OTHER SPECIFIED DEFORMING DORSOPATHIES, 07/29/2018 PAMELA RAMSEY SULFUR CHLORIDE OPERATOR Ot M47.816 SPONDYLOSIS W/O MYELOPATHY OR RADICULOPA 08/06/2018 ESTEVAN FERRO, CHAPO J Ot 162.9 MAL LAURA BRONCH/LUNG NOS 08/06/2018 VISHNU STARKS SULFUR CHLORIDE OPERATOR Ot 162.3 MAL LAURA UPPER LOBE LUNG 08/06/2018 VISHNU STARKS SULFUR CHLORIDE OPERATOR Ot 250.00 DIAB CHETNA WO COMPL, TYPE II OR UNSPEC TY 08/06/2018 VISHNU STARKS SULFUR CHLORIDE OPERATOR Ot 272.4 HYPERLIPIDEMIA NEC/NOS 08/06/2018 VISHNU STARKS SULFUR CHLORIDE OPERATOR Ot 414.00 CORON ATHEROSCLER NOS TYPE VESSEL, NATIV 08/06/2018 VISHNU STARKS SULFUR CHLORIDE OPERATOR Ot 793.0 NOSP (ABN) FINDINGS ON RADIOLOGICAL OT 08/06/2018 VISHNU STARKSP Ot V45.82 PERCUTANEOUS TRANSLUM CORON ANGIOPLASTY 08/06/2018 VISHNU STARKSP Ot V58.69 OTH MED,LT,CURRENT USE 08/06/2018 JAMMIE NAVA MD Ot C34. 10 MALIGNANT NEOPLASM OF UPPER LOBE, UNSP B 08/06/2018 JAMMIE NAVA MD Ot E11. 9 TYPE 2 DIABETES MELLITUS WITHOUT COMPLIC 08/06/2018 JAMMIE NAVA MD, Ot E78. 5 HYPERLIPIDEMIA, UNSPECIFIED 08/06/2018 JAMMIE NAVA MD Ot I25. 10 ATHSCL HEART DISEASE OF [place] CORONARY 08/06/2018 JAMMIE NAVA MD Ot Z51. 11 ENCOUNTER FOR ANTINEOPLASTIC CHEMOTHERAP 08/06/2018 JAMMIE NAVA MD Ot Z79.899 OTHER [facility] (CURRENT) DRUG THERAPY 08/06/2018 JAMMIE NAVA MD, Ot Z98. 61 CORONARY ANGIOPLASTY STATUS 08/06/2018 AKANKSHA FERRO FACC, DELBERT FACP CCDS Ot C34.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, LEFT B 08/06/2018 AKANKSHA FERRO FACC, ALI FACP CCDS Ot E13.9 OTHER SPECIFIED DIABETES MELLITUS WITHOU 08/06/2018 AKNAKSHA FERRO FACC, ALI FACP CCDS Ot E78.4 OTHER HYPERLIPIDEMIA 08/06/2018 AKANKSHA FERRO FACC, ALI FACP CCDS Ot I25.10 ATHSCL HEART DISEASE OF [place] CORONARY 08/06/2018 AKANKSHA FERRO FACC, ALI FACP CCDS Ot R00.2 PALPITATIONS 08/06/2018 AKANKSHA FERRO FACC, ALI FACP CCDS Ot R06.02 SHORTNESS OF BREATH 08/06/2018 AKANKSHA FERRO FACC, ALI FACP CCDS Ot Z87.891 PERSONAL HISTORY OF NICOTINE DEPENDENCE 08/06/2018 LISSA OATES INDUSTRIAL CLEANING TECHNICIAN Ot G47.30 SLEEP APNEA, UNSPECIFIED 08/06/2018 LISSA OATES INDUSTRIAL CLEANING TECHNICIAN Ot J44.9 CHRONIC OBSTRUCTIVE PULMONARY DISEASE, U 08/06/2018 LISSA OATES INDUSTRIAL CLEANING TECHNICIAN Ot R06.02 SHORTNESS OF BREATH 08/06/2018 LISSA OATES INDUSTRIAL CLEANING TECHNICIAN Ot Z72.0 TOBACCO USE 08/06/2018 LISSA OATES INDUSTRIAL CLEANING TECHNICIAN Ot Z85.118 PERSONAL HISTORY OF MALIGNANT NEOPLASM O 08/06/2018 LISSA OATES INDUSTRIAL CLEANING TECHNICIAN Ot C34.90 MALIGNANT NEOPLASM OF UNSP PART OF UNSP 08/06/2018 LISSA OATES INDUSTRIAL CLEANING TECHNICIAN Ot G47.30 SLEEP APNEA, UNSPECIFIED 08/06/2018 LISSA OATES INDUSTRIAL CLEANING TECHNICIAN Ot J43.9 EMPHYSEMA, UNSPECIFIED 08/06/2018 LISSA OATES INDUSTRIAL CLEANING TECHNICIAN Ot K76.0 FATTY (CHANGE OF) LIVER, NOT ELSEWHERE C 08/06/2018 LISSA OATES INDUSTRIAL CLEANING TECHNICIAN Ot Z72.0 TOBACCO USE 08/06/2018 AKANKSHA FERRO FACC, DELBERT FACP CCDS Ot E11.9 TYPE 2 DIABETES MELLITUS WITHOUT COMPLIC 08/06/2018 AKANKSHA FERRO FACC, ALI FACP CCDS Ot G47.33 OBSTRUCTIVE SLEEP APNEA (ADULT) (PEDIATR 08/06/2018 AKANKSHA FERRO FACC, ALI FACP CCDS Ot I25.10 ATHSCL HEART DISEASE OF [place] CORONARY 08/06/2018 AKANKSHA FERRO FACC, DELBERT FACP CCDS Ot K21.9 GASTRO-ESOPHAGEAL REFLUX DISEASE WITHOUT 08/06/2018 AKANKSHA FERRO FACC, ALI FACP CCDS Ot R00.2 PALPITATIONS 08/06/2018 AKANKSHA FERRO FACC, ALI FACP CCDS Ot Z79.82 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 (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 08/06/2018 AKANKSHA FERRO FACC, ALI FACP CCDS Ot Z79.84 AUTOMOBILE 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 (CURRENT) USE OF ORAL HYPOGLYC 08/06/2018 AKANKSHA FERRO FACC, ALI FACP CCDS Ot Z79.899 OTHER [facility] (CURRENT) DRUG THERAPY 08/06/2018 AKANKSHA FERRO FACC, ALI FACP CCDS Ot Z82.49 FAMILY HX OF ISCHEM HEART DIS AND OTH DI 08/06/2018 AKANKSHA FERRO FACC, ALI FACP CCDS Ot Z85.118 PERSONAL HISTORY OF MALIGNANT NEOPLASM O 08/06/2018 AKANKSHA FERRO FACC, ALI FACP CCDS Ot Z86.73 PRSNL HX OF TIA (TIA), AND CEREB INFRC W 08/06/2018 AKANKSHA FERRO FACC, ALI FACP CCDS Ot Z87.891 PERSONAL HISTORY OF NICOTINE DEPENDENCE 08/06/2018 AKANKSHA FERRO FACC, ALI FACP CCDS Ot Z95.5 PRESENCE OF CORONARY ANGIOPLASTY IMPLANT 08/06/2018 PAMELA RAMSEY SULFUR CHLORIDE OPERATOR Ot K59. 09 OTHER CONSTIPATION 08/06/2018 PAMELA RAMSEY SULFUR CHLORIDE OPERATOR Ot M43.8X6 OTHER SPECIFIED DEFORMING DORSOPATHIES, 08/06/2018 PAMELA RAMSEY SULFUR CHLORIDE OPERATOR Ot M47.816 SPONDYLOSIS W/O MYELOPATHY OR RADICULOPA 08/06/2018 LISSA OATES APRN Ot G47.30 SLEEP APNEA, UNSPECIFIED 08/06/2018 LISSA OATES INDUSTRIAL CLEANING TECHNICIAN Ot J44.9 CHRONIC OBSTRUCTIVE PULMONARY DISEASE, U 08/06/2018 LISSA OATES APRN Ot R06.02 SHORTNESS OF BREATH 08/06/2018 LISSA OATES APRN Ot Z72.0 TOBACCO USE 08/06/2018 LISSA OATES INDUSTRIAL CLEANING TECHNICIAN Ot Z85.118 PERSONAL HISTORY OF MALIGNANT NEOPLASM O 08/06/2018 ESTEVAN FERRO, CHAPO J Ot 162.9 MAL LAURA BRONCH/LUNG NOS 08/06/2018 VISHNU STARKS SULFUR CHLORIDE OPERATOR Ot 162.3 MAL LAURA UPPER LOBE LUNG 08/06/2018 VISHNU STARKS SULFUR CHLORIDE OPERATOR Ot 250.00 DIAB CHETNA WO COMPL, TYPE II OR UNSPEC TY 08/06/2018 VISHNU STARKS SULFUR CHLORIDE OPERATOR Ot 272.4 HYPERLIPIDEMIA NEC/NOS 08/06/2018 VISHNU STARKS SULFUR CHLORIDE OPERATOR Ot 414.00 CORON ATHEROSCLER NOS TYPE VESSEL, NATIV 08/06/2018 VISHNU STARKS SULFUR CHLORIDE OPERATOR Ot 793.0 [facility] (ABN) FINDINGS ON RADIOLOGICAL OT 08/06/2018 VISHNU STARKS SULFUR CHLORIDE OPERATOR Ot V45.82 PERCUTANEOUS TRANSLUM CORON ANGIOPLASTY 08/06/2018 VISHNU STARKS SULFUR CHLORIDE OPERATOR Ot V58.69 OT MED,LT,CURRENT USE 08/06/2018 JAMMIE NAVA MD Ot C34. 10 MALIGNANT NEOPLASM OF UPPER LOBE, UNSP B 08/06/2018 JAMMIE NAVA MD Ot E11. 9 TYPE 2 DIABETES MELLITUS WITHOUT COMPLIC 08/06/2018 JAMMIE NAVA MD, Ot E78. 5 HYPERLIPIDEMIA, UNSPECIFIED 08/06/2018 JAMMIE NAVA MD Ot I25. 10 ATHSCL HEART DISEASE OF [place] CORONARY 08/06/2018 JAMMIE NAVA MD Ot Z51. 11 ENCOUNTER FOR ANTINEOPLASTIC CHEMOTHERAP 08/06/2018 JAMMIE NAVA MD Ot Z79.899 OTHER [facility] (CURRENT) DRUG THERAPY 08/06/2018 JAMMIE NAVA MD Ot Z98. 61 CORONARY ANGIOPLASTY STATUS 08/06/2018 AKANKSHA FERRO FACC, DELBERT CHAMBERSP CCDS Ot C34.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, LEFT B 08/06/2018 AKANKSHA FERRO FACC, DELBERT FACP CCDS Ot E13.9 OTHER SPECIFIED DIABETES MELLITUS WITHOU 08/06/2018 AKANKSHA FERRO FACC, DELBERT FACP CCDS Ot E78.4 OTHER HYPERLIPIDEMIA 08/06/2018 AKANKSHA FERRO FACC, DELBERT FACP CCDS Ot I25.10 ATHSCL HEART DISEASE OF [place] CORONARY 08/06/2018 AKANKSHA FERRO FACC, DELBERT FACP CCDS Ot R00.2 PALPITATIONS 08/06/2018 AKANKSHA FERRO FACC, DELBERT FACP CCDS Ot R06.02 SHORTNESS OF BREATH 08/06/2018 AKANKSHA FERRO FACC, ALI FACP CCDS Ot Z87.891 PERSONAL HISTORY OF NICOTINE DEPENDENCE 08/06/2018 LISSA OATES INDUSTRIAL CLEANING TECHNICIAN Ot G47.30 SLEEP APNEA, UNSPECIFIED 08/06/2018 LISSA OATES INDUSTRIAL CLEANING TECHNICIAN Ot J44.9 CHRONIC OBSTRUCTIVE PULMONARY DISEASE, U 08/06/2018 LISSA OATES INDUSTRIAL CLEANING TECHNICIAN Ot R06.02 SHORTNESS OF BREATH 08/06/2018 LISSA OATES INDUSTRIAL CLEANING TECHNICIAN Ot Z72.0 TOBACCO USE 08/06/2018 LISSA OATES INDUSTRIAL CLEANING TECHNICIAN Ot Z85.118 PERSONAL HISTORY OF MALIGNANT NEOPLASM O 08/06/2018 LISSA OATES INDUSTRIAL CLEANING TECHNICIAN Ot C34.90 MALIGNANT NEOPLASM OF UNSP PART OF UNSP 08/06/2018 LISSA OATES APRN Ot G47.30 SLEEP APNEA, UNSPECIFIED 08/06/2018 LISSA OATES INDUSTRIAL CLEANING TECHNICIAN Ot J43.9 EMPHYSEMA, UNSPECIFIED 08/06/2018 LISSA OATES INDUSTRIAL CLEANING TECHNICIAN Ot K76.0 FATTY (CHANGE OF) LIVER, NOT ELSEWHERE C 08/06/2018 LISSA OATES INDUSTRIAL CLEANING TECHNICIAN Ot Z72.0 TOBACCO USE 08/06/2018 AKANKSHA FERRO FACC, DELBERT FACP CCDS Ot E11.9 TYPE 2 DIABETES MELLITUS WITHOUT COMPLIC 08/06/2018 AKANKSHA FERRO FACC, ALI FACP CCDS Ot G47.33 OBSTRUCTIVE SLEEP APNEA (ADULT) (PEDIATR 08/06/2018 AKANKSHA FERRO FACC, ALI FACP CCDS Ot I25.10 ATHSCL HEART DISEASE OF [place] CORONARY 08/06/2018 AKANKSHA FERRO FACC, ALI FACP CCDS Ot K21.9 GASTRO-ESOPHAGEAL REFLUX DISEASE WITHOUT 08/06/2018 AKANKSHA FERRO FACC, ALI FACP CCDS Ot R00.2 PALPITATIONS 08/06/2018 AKANKSHA FERRO FACC, ALI FACP CCDS Ot Z79.82 AUTOMOBILE 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 (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 08/06/2018 AKANKSHA FERRO FACC, ALI FACP CCDS Ot Z79.84 AUTOMOBILE 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 (CURRENT) USE OF ORAL HYPOGLYC 08/06/2018 AKANKSHA FERRO FACC, ALI FACP CCDS Ot Z79.899 OTHER [facility] (CURRENT) DRUG THERAPY 08/06/2018 AKANKSHA FERRO FACC, DELBERT FACP CCDS Ot Z82.49 FAMILY HX OF ISCHEM HEART DIS AND OTH DI 08/06/2018 AKANKSHA FERRO FACC, DELBERT GOEL CCDS Ot Z85.118 PERSONAL HISTORY OF MALIGNANT NEOPLASM O 08/06/2018 AKANKSHA FERRO FACC, DELBERT CHAMBERSP CCDS Ot Z86.73 PRSNL HX OF TIA (TIA), AND CEREB INFRC W 08/06/2018 AKANKSHA [facility]ERRO FACC, [facility] Z87.891 PERSONAL HISTORY OF NICOTINE DEPENDENCE 08/06/2018 AKANKSHA FERRO FACC, DELBERT [facility] Ot Z95.5 PRESENCE OF CORONARY ANGIOPLASTY IMPLANT 08/06/2018 PAMELA RAMSEY SULFUR CHLORIDE OPERATOR Ot K59. 09 OTHER CONSTIPATION 08/06/2018 PAMELA RAMSEY SULFUR CHLORIDE OPERATOR Ot M43.8X6 OTHER SPECIFIED DEFORMING DORSOPATHIES, 08/06/2018 PAMELA RAMSEY SULFUR CHLORIDE OPERATOR Ot M47.816 SPONDYLOSIS W/O MYELOPATHY OR RADICULOPA 08/14/2018 PAMELA RAMSEY SULFUR CHLORIDE OPERATOR Ot M47.816 SPONDYLOSIS W/O MYELOPATHY OR RADICULOPA 08/14/2018 PAMELA RAMSEY SULFUR CHLORIDE OPERATOR Ot M48. 07 SPINAL STENOSIS, LUMBOSACRAL REGION 08/14/2018 PAMELA RAMSEY SULFUR CHLORIDE OPERATOR Ot 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, 08/15/2018 LISSA OATES APRN Ot G47.30 SLEEP APNEA, UNSPECIFIED 08/15/2018 LISSA OATES APRN Ot J44.9 CHRONIC OBSTRUCTIVE PULMONARY DISEASE, U 08/15/2018 LISSA OATES APRN Ot R06.02 SHORTNESS OF BREATH 08/15/2018 LISSA OATES APRN Ot Z72.0 TOBACCO USE 08/15/2018 LISSA OATES APRN Ot Z85.118 PERSONAL HISTORY OF MALIGNANT NEOPLASM O 08/20/2018 PAMELA RAMSEY SULFUR CHLORIDE OPERATOR Ot M47.816 SPONDYLOSIS W/O MYELOPATHY OR RADICULOPA 08/20/2018 PAMELA RAMSEY SULFUR CHLORIDE OPERATOR Ot M48. 07 SPINAL STENOSIS, LUMBOSACRAL REGION 08/20/2018 PAMELA RAMSEY SULFUR CHLORIDE OPERATOR Ot 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, 11/28/2018 PAMELA RAMSEY SULFUR CHLORIDE OPERATOR Ot M25.461 EFFUSION, RIGHT KNEE 11/28/2018 ANAYELI KIRKPATRICK INDUSTRIAL CLEANING TECHNICIAN Ot M54. 5 LOW BACK PAIN 01/08/2019 AKANKSHA FERRO FACC, DELBERT FACP CCDS Ot E11.9 TYPE 2 DIABETES MELLITUS WITHOUT COMPLIC 01/08/2019 AKANKSHA FERRO FACC, DELBERT FACP CCDS Ot E78.5 HYPERLIPIDEMIA, UNSPECIFIED 01/08/2019 AKANKSHA FERRO FACC, ALI FACP CCDS Ot F17.210 NICOTINE DEPENDENCE, CIGARETTES, UNCOMPL 01/08/2019 AKANKSHA FERRO FACC, ALI FACP CCDS Ot F32.9 MAJOR DEPRESSIVE DISORDER, SINGLE EPISOD 01/08/2019 AKANKSHA FERRO FACC, DELBERT FACP CCDS Ot G47.33 OBSTRUCTIVE SLEEP APNEA (ADULT) (PEDIATR 01/08/2019 AKANKSHA FERRO FACC, DELBERT FACP CCDS Ot I25.10 ATHSCL HEART DISEASE OF [place] CORONARY 01/08/2019 AKANKSHA FERRO FACC, DELBERT FACP CCDS Ot J30.1 ALLERGIC RHINITIS DUE TO POLLEN 01/08/2019 AKANKSHA FERRO FACC, DELBERT FACP CCDS Ot J44.9 CHRONIC OBSTRUCTIVE PULMONARY DISEASE, U 01/08/2019 AKANKSHA FERRO FACC, DELBERT FACP CCDS Ot K21.9 GASTRO-ESOPHAGEAL REFLUX DISEASE WITHOUT 01/08/2019 AKANKSHA FERRO FACC, DELBERT FACP CCDS Ot R06.09 OTHER FORMS OF DYSPNEA 01/08/2019 AKANKSHA EFRRO FACC, DELBERT FACP CCDS Ot Z79.82 AUTOMOBILE 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 (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 01/08/2019 AKANKSHA FERRO FACC, DELBERT FACP CCDS Ot Z79.84 [facility] (CURRENT) USE OF ORAL HYPOGLYC 01/08/2019 AKANKSHA FERRO FACC, DELBERT FACP CCDS Ot Z85.118 PERSONAL HISTORY OF MALIGNANT NEOPLASM O 01/08/2019 AKANKSHA FERRO FACC, DELBERT FACP CCDS Ot Z86.73 PRSNL HX OF TIA (TIA), AND CEREB INFRC W 01/08/2019 AKANKSHA FERRO FACC, ALI FACP CCDS Ot Z88.8 ALLERGY STATUS TO OTH DRUG/MEDS/BIOL SUB 01/08/2019 AKANKSHA FERRO FACC, DELBERT FACP CCDS Ot Z95.1 PRESENCE OF AORTOCORONARY BYPASS GRAFT 01/14/2019 AKANKSHA FERRO FACC, DELBERT FACP CCDS Ot E11.9 TYPE 2 DIABETES MELLITUS WITHOUT COMPLIC 01/14/2019 AKANKSHA FERRO FACC, DELBERT FACP CCDS Ot E78.5 HYPERLIPIDEMIA, UNSPECIFIED 01/14/2019 AKANKSHA FERRO FACC, ALI FACP CCDS Ot F17.210 NICOTINE DEPENDENCE, CIGARETTES, UNCOMPL 01/14/2019 AKANKSHA FERRO FACC, ALI FACP CCDS Ot F32.9 MAJOR DEPRESSIVE DISORDER, SINGLE EPISOD 01/14/2019 AKANKSHA FERRO FACC, ALI FACP CCDS Ot G47.33 OBSTRUCTIVE SLEEP APNEA (ADULT) (PEDIATR 01/14/2019 AKANKSHA FERRO FACC, ALI FACP CCDS Ot I25.10 ATHSCL HEART DISEASE OF [place] CORONARY 01/14/2019 AKANKSHA FERRO FACC, ALI FACP CCDS Ot J30.1 ALLERGIC RHINITIS DUE TO POLLEN 01/14/2019 AKANKSHA FERRO FACC, ALI FACP CCDS Ot J44.9 CHRONIC OBSTRUCTIVE PULMONARY DISEASE, U 01/14/2019 AKANKSHA FERRO FACC, ALI FACP CCDS Ot K21.9 GASTRO-ESOPHAGEAL REFLUX DISEASE WITHOUT 01/14/2019 AKANKSHA FERRO FACC, ALI FACP CCDS Ot R06.09 OTHER FORMS OF DYSPNEA 01/14/2019 AKANKSHA FERRO FACC, ALI FACP CCDS Ot Z79.82 AUTOMOBILE 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 (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 01/14/2019 AKANKSHA FERRO FACC, ALI FACP CCDS Ot Z79.84 AUTOMOBILE 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 (CURRENT) USE OF ORAL HYPOGLYC 01/14/2019 AKANKSHA FERRO FACC, ALI FACP CCDS Ot Z85.118 PERSONAL HISTORY OF MALIGNANT NEOPLASM O 01/14/2019 AKANKSHA FERRO FACC, ALI FACP CCDS Ot Z86.73 PRSNL HX OF TIA (TIA), AND CEREB INFRC W 01/14/2019 AKANKSHA FERRO FACC, ALI FACP CCDS Ot Z88.8 ALLERGY STATUS TO OTH DRUG/MEDS/BIOL SUB 01/14/2019 AKANKSHA FERRO FACC, ALI FACP CCDS Ot Z95.1 PRESENCE OF AORTOCORONARY BYPASS GRAFT 02/21/2019 ESTEVAN FERRO, CHAPO J Ot 162.9 MAL LAURA BRONCH/LUNG NOS 02/21/2019 VISHNU STARKS SULFUR CHLORIDE OPERATOR Ot 162.3 MAL LAURA UPPER LOBE LUNG 02/21/2019 VISHNU STARKS SULFUR CHLORIDE OPERATOR Ot 250.00 DIAB CHETNA WO COMPL, TYPE II OR UNSPEC TY 02/21/2019 VISHNU STARKS SULFUR CHLORIDE OPERATOR Ot 272.4 HYPERLIPIDEMIA NEC/NOS 02/21/2019 VISHNU STARKS SULFUR CHLORIDE OPERATOR Ot 414.00 CORON ATHEROSCLER NOS TYPE VESSEL, NATIV 02/21/2019 VISHNU STARKS SULFUR CHLORIDE OPERATOR Ot 793.0 NOSP (ABN) FINDINGS ON RADIOLOGICAL OT 02/21/2019 VISHNU STARKS SULFUR CHLORIDE OPERATOR Ot V45.82 PERCUTANEOUS TRANSLUM CORON ANGIOPLASTY 02/21/2019 VISHNU STARKS SULFUR CHLORIDE OPERATOR Ot V58.69 OTH MED,LT,CURRENT USE 02/21/2019 JAMMIE NAVA MD Ot C34. 10 MALIGNANT NEOPLASM OF UPPER LOBE, UNSP B 02/21/2019 JAMMIE NAVA MD Ot E11. 9 TYPE 2 DIABETES MELLITUS WITHOUT COMPLIC 02/21/2019 JAMMIE NAVA MD Ot E78. 5 HYPERLIPIDEMIA, UNSPECIFIED 02/21/2019 JAMMIE NAVA MD Ot I25. 10 ATHSCL HEART DISEASE OF [place] CORONARY 02/21/2019 JAMMIE NAVA MD Ot Z51. 11 ENCOUNTER FOR ANTINEOPLASTIC CHEMOTHERAP 02/21/2019 JAMMIE NAVA MD Ot Z79.899 OTHER [facility] (CURRENT) DRUG THERAPY 02/21/2019 JAMMIE NAVA MD Ot Z98. 61 CORONARY ANGIOPLASTY STATUS 02/21/2019 AKANKSHA FERRO FACC, DELBERT FACP CCDS Ot C34.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, LEFT B 02/21/2019 AKANKSHA FERRO FACC, ALI FACP CCDS Ot E13.9 OTHER SPECIFIED DIABETES MELLITUS WITHOU 02/21/2019 AKANKSHA FERRO FACC, ALI FACP CCDS Ot E78.4 OTHER HYPERLIPIDEMIA 02/21/2019 AKANKSHA FERRO FACC, ALI FACP CCDS Ot I25.10 ATHSCL HEART DISEASE OF [place] CORONARY 02/21/2019 AKANKSHA FERRO FACC, ALI FACP CCDS Ot R00.2 PALPITATIONS 02/21/2019 AKANKSHA FERRO FACC, ALI FACP CCDS Ot R06.02 SHORTNESS OF BREATH 02/21/2019 AKANKSHA FERRO FACC, ALI FACP CCDS Ot Z87.891 PERSONAL HISTORY OF NICOTINE DEPENDENCE 02/21/2019 LISSA OATES APRN Ot G47.30 SLEEP APNEA, UNSPECIFIED 02/21/2019 LISSA OATES APRN Ot J44.9 CHRONIC OBSTRUCTIVE PULMONARY DISEASE, U 02/21/2019 LASHON, LISSA E INDUSTRIAL CLEANING TECHNICIAN Ot R06.02 SHORTNESS OF BREATH 02/21/2019 LISSA OATES INDUSTRIAL CLEANING TECHNICIAN Ot Z72.0 TOBACCO USE 02/21/2019 LISSA OATES INDUSTRIAL CLEANING TECHNICIAN Ot Z85.118 PERSONAL HISTORY OF MALIGNANT NEOPLASM O 02/21/2019 LISSA OATES INDUSTRIAL CLEANING TECHNICIAN Ot C34.90 MALIGNANT NEOPLASM OF UNSP PART OF UNSP 02/21/2019 LISSA OATES INDUSTRIAL CLEANING TECHNICIAN Ot G47.30 SLEEP APNEA, UNSPECIFIED 02/21/2019 LISSA OATES INDUSTRIAL CLEANING TECHNICIAN Ot J43.9 EMPHYSEMA, UNSPECIFIED 02/21/2019 LISSA OATES INDUSTRIAL CLEANING TECHNICIAN Ot K76.0 FATTY (CHANGE OF) LIVER, NOT ELSEWHERE C 02/21/2019 LISSA OATES INDUSTRIAL CLEANING TECHNICIAN Ot Z72.0 TOBACCO USE 02/21/2019 AKANKSHA FERRO FACC, DELBERT FACP CCDS Ot E11.9 TYPE 2 DIABETES MELLITUS WITHOUT COMPLIC 02/21/2019 AKANKSHA FERRO FACC, DELBERT FACP CCDS Ot G47.33 OBSTRUCTIVE SLEEP APNEA (ADULT) (PEDIATR 02/21/2019 AKANKSHA FERRO FACC, ALI FACP CCDS Ot I25.10 ATHSCL HEART DISEASE OF [place] CORONARY 02/21/2019 AKANKSHA FERRO FACC, DELBERT FACP CCDS Ot K21.9 GASTRO-ESOPHAGEAL REFLUX DISEASE WITHOUT 02/21/2019 AKANKSHA FERRO FACC, DELBERT FACP CCDS Ot R00.2 PALPITATIONS 02/21/2019 AKANKSHA FERRO FACC, DELBERT FACP CCDS Ot Z79.82 [facility] (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 02/21/2019 AKANKSHA FERRO FACC, DELBERT FACP CCDS Ot Z79.84 [facility] (CURRENT) USE OF ORAL HYPOGLYC 02/21/2019 AKANKSHA FERRO FACC, DELBERT FACP CCDS Ot Z79.899 OTHER [facility] (CURRENT) DRUG THERAPY 02/21/2019 AKANKSHA FERRO FACC, DELBERT FACP CCDS Ot Z82.49 FAMILY HX OF ISCHEM HEART DIS AND OTH DI 02/21/2019 AKANKSHA FERRO FACC ALI FACP CCDS Ot Z85.118 PERSONAL HISTORY OF MALIGNANT NEOPLASM O 02/21/2019 AKANKSHA FERRO FACC, DELBERT FACP CCDS Ot Z86.73 PRSNL HX OF TIA (TIA), AND CEREB INFRC W 02/21/2019 AKANKSHA CHAMBERSC, [facility] CCDS Ot Z87.891 PERSONAL HISTORY OF NICOTINE DEPENDENCE 02/21/2019 [facility]ANKSHA [facility], [facility] CCD[facility] Ot Z95.5 PRESENCE OF CORONARY ANGIOPLASTY IMPLANT 02/21/2019 BRAULIO PAMELA SULFUR CHLORIDE OPERATOR Ot K59. 09 OTHER CONSTIPATION 02/21/2019 BRAULIO PAMELA SULFUR CHLORIDE OPERATOR Ot M43.8X6 OTHER SPECIFIED DEFORMING DORSOPATHIES, 02/21/2019 BRAULIOKAYLIET SULFUR CHLORIDE OPERATOR Ot M47.816 SPONDYLOSIS W/O MYELOPATHY OR RADICULOPA 02/21/2019 BRAULIO PAMELA SULFUR CHLORIDE OPERATOR Ot M47.816 SPONDYLOSIS W/O MYELOPATHY OR RADICULOPA 02/21/2019 BRAULIOKAYLIET SULFUR CHLORIDE OPERATOR Ot M48. 07 SPINAL STENOSIS, LUMBOSACRAL REGION 02/21/2019 BRAULIOKAYLIET SULFUR CHLORIDE OPERATOR Ot 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, 03/06/2019 AKANKSHA [facility], [facility] CCDS Ot Z95.828 PRESENCE OF OTHER VASCULAR IMPLANTS AND 04/30/2019 ESTEVAN FERRO, CHAPO J Ot 162.9 MAL LAURA BRONCH/LUNG NOS 04/30/2019 VISHNU STARKS SULFUR CHLORIDE OPERATOR Ot 162.3 MAL LAURA UPPER LOBE LUNG 04/30/2019 VISHNU STARKS S SULFUR CHLORIDE OPERATOR Ot 250.00 DIAB CHETNA WO COMPL, TYPE II OR UNSPEC TY 04/30/2019 VISHNU STARKS S SULFUR CHLORIDE OPERATOR Ot 272.4 HYPERLIPIDEMIA NEC/NOS 04/30/2019 VISHNU STARKS S SULFUR CHLORIDE OPERATOR Ot 414.00 CORON ATHEROSCLER NOS TYPE VESSEL, NATIV 04/30/2019 VISHNU STARKS S SULFUR CHLORIDE OPERATOR Ot 793.0 NOSP (ABN) FINDINGS ON RADIOLOGICAL OT 04/30/2019 VISHNU STARKS S SULFUR CHLORIDE OPERATOR Ot V45.82 PERCUTANEOUS TRANSLUM CORON ANGIOPLASTY 04/30/2019 VISHNU STARKS S SULFUR CHLORIDE OPERATOR Ot V58.69 OTH MED,LT,CURRENT USE 04/30/2019 BRANDY FERRO, JAMMIE Ot C34. 10 MALIGNANT NEOPLASM OF UPPER LOBE, UNSP B 04/30/2019 BRANDY FERRO, JAMMIE Ot E11. 9 TYPE 2 DIABETES MELLITUS WITHOUT COMPLIC 04/30/2019 JAMMIE NAVA MD Ot E78. 5 HYPERLIPIDEMIA, UNSPECIFIED 04/30/2019 XUN MD, CHAU-RJ Ot I25. 10 ATHSCL HEART DISEASE OF [place] CORONARY 04/30/2019 JAMMIE NAVA MD Ot Z51. 11 ENCOUNTER FOR ANTINEOPLASTIC CHEMOTHERAP 04/30/2019 JAMMIE NAVA MD Ot Z79.899 OTHER [facility] (CURRENT) DRUG THERAPY 04/30/2019 JAMMIE NAVA MD Ot Z98. 61 CORONARY ANGIOPLASTY STATUS 04/30/2019 AKANKSHA FERRO FAC, ALI FACP CCDS Ot C34.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, LEFT B 04/30/2019 AKANKSHA FERRO FAC, ALI FACP CCDS Ot E13.9 OTHER SPECIFIED DIABETES MELLITUS WITHOU 04/30/2019 AKANKSHA FERRO FACC, ALI FACP CCDS Ot E78.4 OTHER HYPERLIPIDEMIA 04/30/2019 AKANKSHA [facility], ALI FACP CCDS Ot I25.10 ATHSCL HEART DISEASE OF [place] CORONARY 04/30/2019 AKANKSHA FERRO FAC, ALI FACP CCDS Ot R00.2 PALPITATIONS 04/30/2019 AKANKSHA [facility], ALI FACP CCDS Ot R06.02 SHORTNESS OF BREATH 04/30/2019 AKANKSHA [facility], ALI FACP CCDS Ot Z87.891 PERSONAL HISTORY OF NICOTINE DEPENDENCE 04/30/2019 LISSA OATES INDUSTRIAL CLEANING TECHNICIAN Ot G47.30 SLEEP APNEA, UNSPECIFIED 04/30/2019 LISSA OATES INDUSTRIAL CLEANING TECHNICIAN Ot J44.9 CHRONIC OBSTRUCTIVE PULMONARY DISEASE, U 04/30/2019 LISSA OATES INDUSTRIAL CLEANING TECHNICIAN Ot R06.02 SHORTNESS OF BREATH 04/30/2019 LISSA OATES INDUSTRIAL CLEANING TECHNICIAN Ot Z72.0 TOBACCO USE 04/30/2019 LISSA OATES INDUSTRIAL CLEANING TECHNICIAN Ot Z85.118 PERSONAL HISTORY OF MALIGNANT NEOPLASM O 04/30/2019 LISSA OATES INDUSTRIAL CLEANING TECHNICIAN Ot C34.90 MALIGNANT NEOPLASM OF UNSP PART OF UNSP 04/30/2019 LISSA OATES INDUSTRIAL CLEANING TECHNICIAN Ot G47.30 SLEEP APNEA, UNSPECIFIED 04/30/2019 LISSA OATES INDUSTRIAL CLEANING TECHNICIAN Ot J43.9 EMPHYSEMA, UNSPECIFIED 04/30/2019 LISSA OATES INDUSTRIAL CLEANING TECHNICIAN Ot K76.0 FATTY (CHANGE OF) LIVER, NOT ELSEWHERE C 04/30/2019 LISSA OATES INDUSTRIAL CLEANING TECHNICIAN Ot Z72.0 TOBACCO USE 04/30/2019 AKANKSHA CHAMBERS, DELBERT FACP CCDS Ot E11.9 TYPE 2 DIABETES MELLITUS WITHOUT COMPLIC 04/30/2019 AKANKSHA FERRO FACC, ALI FACP CCDS Ot G47.33 OBSTRUCTIVE SLEEP APNEA (ADULT) (PEDIATR 04/30/2019 AKANKSHA [facility], ALI FACP CCDS Ot I25.10 ATHSCL HEART DISEASE OF [place] CORONARY 04/30/2019 AKANKSHA FERRO FACC, DELBERT FACP CCDS Ot K21.9 GASTRO-ESOPHAGEAL REFLUX DISEASE WITHOUT 04/30/2019 AKANKSHA [facility], ALI FACP CCDS Ot R00.2 PALPITATIONS 04/30/2019 AKANKSHA [facility], ALI FACP CCDS Ot Z79.82 [facility]CI (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 04/30/2019 AKANKSHA CHAMBERS, DELBERT FACP CCDS Ot Z79.84 [facility]CI (CURRENT) USE OF ORAL HYPOGLYC 04/30/2019 AKANKSHA CHAMBERS, ALI FACP CCDS Ot Z79.899 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 (CURRENT) DRUG THERAPY 04/30/2019 AKANKSHA CHAMBERS, DELBERT FACP CCDS Ot Z82.49 FAMILY HX OF ISCHEM HEART DIS AND OTH DI 04/30/2019 AKANKSHA [facility], ALI FACP CCDS Ot Z85.118 PERSONAL HISTORY OF MALIGNANT NEOPLASM O 04/30/2019 AKANKSHA CHAMBERS, ALI FACP CCDS Ot Z86.73 PRSNL HX OF TIA (TIA), AND CEREB INFRC W 04/30/2019 AKANKSHA [facility], ALI FACP CCDS Ot Z87.891 PERSONAL HISTORY OF NICOTINE DEPENDENCE 04/30/2019 AKANKSHA CHAMBERS, ALI FACP CCDS Ot Z95.5 PRESENCE OF CORONARY ANGIOPLASTY IMPLANT 04/30/2019 PAMELA RAMSEY Ot K59. 09 OTHER CONSTIPATION 04/30/2019 PAMELA RAMSEY Ot M43.8X6 OTHER SPECIFIED DEFORMING DORSOPATHIES, 04/30/2019 PAMELA RAMSEY Ot M47.816 SPONDYLOSIS W/O MYELOPATHY OR RADICULOPA 04/30/2019 PAMELA RAMSEY Ot M47.816 SPONDYLOSIS W/O MYELOPATHY OR RADICULOPA 04/30/2019 PAMELA RAMSEY Ot M48. 07 SPINAL STENOSIS, LUMBOSACRAL REGION 04/30/2019 PAMELA RAMSEY SULFUR CHLORIDE OPERATOR Ot 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, 04/30/2019 AKANKSHA [facility], [facility] CCDS Ot Z95.828 PRESENCE OF OTHER VASCULAR IMPLANTS AND 04/30/2019 AKANKSHA [facility], [facility] CCDS Ot Z95.828 PRESENCE OF OTHER VASCULAR IMPLANTS AND 05/01/2019 LISSA OATES APRN Ot G47.30 SLEEP APNEA, UNSPECIFIED 05/01/2019 LISSA OATES APRN Ot J44.9 CHRONIC OBSTRUCTIVE PULMONARY DISEASE, U 05/01/2019 LISSA OATES INDUSTRIAL CLEANING TECHNICIAN Ot R59.0 LOCALIZED ENLARGED LYMPH NODES 05/01/2019 LISSA OATES INDUSTRIAL CLEANING TECHNICIAN Ot Z72.0 TOBACCO USE 05/01/2019 LISSA OATES INDUSTRIAL CLEANING TECHNICIAN Ot Z85.118 PERSONAL HISTORY OF MALIGNANT NEOPLASM O 05/07/2019 AKANKSHA [facility], [facility] CCDS Ot Z95.828 PRESENCE OF OTHER VASCULAR IMPLANTS AND 06/02/2019 ESTEVAN FERRO, CHAPO J Ot 162.9 MAL LAURA BRONCH/LUNG NOS 06/02/2019 TEREZA HILLOUISE S SULFUR CHLORIDE OPERATOR Ot 162.3 MAL LAURA UPPER LOBE LUNG 06/02/2019 TEREZA HILAH S SULFUR CHLORIDE OPERATOR Ot 250.00 DIAB CHETNA WO COMPL, TYPE II OR UNSPEC TY 06/02/2019 TEREZA HILAH S SULFUR CHLORIDE OPERATOR Ot 272.4 HYPERLIPIDEMIA NEC/NOS 06/02/2019 TEREZA HILAH S SULFUR CHLORIDE OPERATOR Ot 414.00 CORON ATHEROSCLER NOS TYPE VESSEL, NATIV 06/02/2019 TEREZA HILAH S SULFUR CHLORIDE OPERATOR Ot 793.0 NOSP (ABN) FINDINGS ON RADIOLOGICAL OT 06/02/2019 VISHNU STARKS S SULFUR CHLORIDE OPERATOR Ot V45.82 PERCUTANEOUS TRANSLUM CORON ANGIOPLASTY 06/02/2019 VISHNU STARKS S SULFUR CHLORIDE OPERATOR Ot V58.69 OTH MED,LT,CURRENT USE 06/02/2019 JAMMIE NAVA MD Ot C34. 10 MALIGNANT NEOPLASM OF UPPER LOBE, UNSP B 06/02/2019 JAMMIE NAVA MD Ot E11. 9 TYPE 2 DIABETES MELLITUS WITHOUT COMPLIC 06/02/2019 JAMMIE NAVA MD Ot E78. 5 HYPERLIPIDEMIA, UNSPECIFIED 06/02/2019 JAMMIE NAVA MD Ot I25. 10 ATHSCL HEART DISEASE OF [place] CORONARY 06/02/2019 JAMMIE NAVA MD Ot Z51. 11 ENCOUNTER FOR ANTINEOPLASTIC CHEMOTHERAP 06/02/2019 JAMMIE NAVA MD Ot Z79.899 OTHER [facility] (CURRENT) DRUG THERAPY 06/02/2019 JAMMIE NAVA MD Ot Z98. 61 CORONARY ANGIOPLASTY STATUS 06/02/2019 AKANKSHA FERRO FACC, ALI FACP CCDS Ot C34.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, LEFT B 06/02/2019 AKANKSHA FERRO FACC, ALI FACP CCDS Ot E13.9 OTHER SPECIFIED DIABETES MELLITUS WITHOU 06/02/2019 AKANKSHA FERRO FACC, ALI FACP CCDS Ot E78.4 OTHER HYPERLIPIDEMIA 06/02/2019 AKANKSHA FERRO FAC, ALI FACP CCDS Ot I25.10 ATHSCL HEART DISEASE OF [place] CORONARY 06/02/2019 AKANKSHA FERRO FAC, ALI FACP CCDS Ot R00.2 PALPITATIONS 06/02/2019 AKANKSHA FERRO FAC, ALI FACP CCDS Ot R06.02 SHORTNESS OF BREATH 06/02/2019 AKANKSHA FERRO FAC, ALI FACP CCDS Ot Z87.891 PERSONAL HISTORY OF NICOTINE DEPENDENCE 06/02/2019 LISSA OATES INDUSTRIAL CLEANING TECHNICIAN Ot G47.30 SLEEP APNEA, UNSPECIFIED 06/02/2019 LISSA OATES INDUSTRIAL CLEANING TECHNICIAN Ot J44.9 CHRONIC OBSTRUCTIVE PULMONARY DISEASE, U 06/02/2019 LISSA OATES INDUSTRIAL CLEANING TECHNICIAN Ot R06.02 SHORTNESS OF BREATH 06/02/2019 LISSA OATES INDUSTRIAL CLEANING TECHNICIAN Ot Z72.0 TOBACCO USE 06/02/2019 LISSA OATES INDUSTRIAL CLEANING TECHNICIAN Ot Z85.118 PERSONAL HISTORY OF MALIGNANT NEOPLASM O 06/02/2019 LISSA OATES INDUSTRIAL CLEANING TECHNICIAN Ot C34.90 MALIGNANT NEOPLASM OF UNSP PART OF UNSP 06/02/2019 LISSA OATES INDUSTRIAL CLEANING TECHNICIAN Ot G47.30 SLEEP APNEA, UNSPECIFIED 06/02/2019 LISSA OATES INDUSTRIAL CLEANING TECHNICIAN Ot J43.9 EMPHYSEMA, UNSPECIFIED 06/02/2019 LISSA OATES INDUSTRIAL CLEANING TECHNICIAN Ot K76.0 FATTY (CHANGE OF) LIVER, NOT ELSEWHERE C 06/02/2019 LISSA OATES INDUSTRIAL CLEANING TECHNICIAN Ot Z72.0 TOBACCO USE 06/02/2019 AKANKSHA FERRO FACC, DELBERT FACP CCDS Ot E11.9 TYPE 2 DIABETES MELLITUS WITHOUT COMPLIC 06/02/2019 AKANKSHA FERRO FACC, ALI FACP CCDS Ot G47.33 OBSTRUCTIVE SLEEP APNEA (ADULT) (PEDIATR 06/02/2019 AKANKSHA FERRO FACC, ALI FACP CCDS Ot I25.10 ATHSCL HEART DISEASE OF [place] CORONARY 06/02/2019 AKANKSHA FERRO FACC, ALI FACP CCDS Ot K21.9 GASTRO-ESOPHAGEAL REFLUX DISEASE WITHOUT 06/02/2019 AKANKSHA FERRO FACC, ALI FACP CCDS Ot R00.2 PALPITATIONS 06/02/2019 AKANKSHA FERRO FACC, ALI FACP CCDS Ot Z79.82 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 (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 06/02/2019 AKANKSHA FERRO FACC, ALI FACP CCDS Ot Z79.84 AUTOMOBILE 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 (CURRENT) USE OF ORAL HYPOGLYC 06/02/2019 AKANKSHA FERRO FACC, ALI FACP CCDS Ot Z79.899 OTHER [facility] (CURRENT) DRUG THERAPY 06/02/2019 AKANKSHA FERRO FACC, ALI FACP CCDS Ot Z82.49 FAMILY HX OF ISCHEM HEART DIS AND OTH DI 06/02/2019 AKANKSHA CHAMBERS, ALI FACP CCDS Ot Z85.118 PERSONAL HISTORY OF MALIGNANT NEOPLASM O 06/02/2019 AKANKSHA FERRO FACC, ALI FACP CCDS Ot Z86.73 PRSNL HX OF TIA (TIA), AND CEREB INFRC W 06/02/2019 AKANKSHA FERRO FACC, ALI FACP CCDS Ot Z87.891 PERSONAL HISTORY OF NICOTINE DEPENDENCE 06/02/2019 AKANKSHA FERRO FACC, ALI FACP CCDS Ot Z95.5 PRESENCE OF CORONARY ANGIOPLASTY IMPLANT 06/02/2019 PAMELA RAMSEY Ot K59. 09 OTHER CONSTIPATION 06/02/2019 PAMELA RAMSEYP Ot M43.8X6 OTHER SPECIFIED DEFORMING DORSOPATHIES, 06/02/2019 PAMELA RAMSEY Ot M47.816 SPONDYLOSIS W/O MYELOPATHY OR RADICULOPA 06/02/2019 PAMELA RAMSEY Ot M47.816 SPONDYLOSIS W/O MYELOPATHY OR RADICULOPA 06/02/2019 PAMELA RAMSEY Ot M48. 07 SPINAL STENOSIS, LUMBOSACRAL REGION 06/02/2019 PAMELA RAMSEY Ot 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, 06/02/2019 LISSA OATES APRN Ot G47.30 SLEEP APNEA, UNSPECIFIED 06/02/2019 LISSA OATES APRN Ot J44.9 CHRONIC OBSTRUCTIVE PULMONARY DISEASE, U 06/02/2019 LISSA OATES APRN Ot R59.0 LOCALIZED ENLARGED LYMPH NODES 06/02/2019 LISSA OATES APRN Ot Z72.0 TOBACCO USE 06/02/2019 LISSA OATES APRN Ot Z85.118 PERSONAL HISTORY OF MALIGNANT NEOPLASM O 06/11/2019 [facility]SHA [facility], ALI FACP CCDS Ot E11.9 TYPE 2 DIABETES MELLITUS WITHOUT COMPLIC 06/11/2019 AKANKSHA [facility], ALI FACP CCDS Ot I25.10 ATHSCL HEART DISEASE OF [place] CORONARY 06/11/2019 AKANKSHA [facility], ALI FACP CCDS Ot I34.0 NONRHEUMATIC MITRAL (VALVE) INSUFFICIENC 06/11/2019 AKANKSHA [facility], ALI FACP CCDS Ot I77.89 OTHER SPECIFIED DISORDERS OF ARTERIES AN 06/11/2019 AKANKSHA [facility], ALI FACP CCDS Ot Z86.73 PRSNL HX OF TIA (TIA), AND CEREB INFRC W 06/11/2019 AKANKSHA [facility], ALI FACP CCDS Ot Z87.891 PERSONAL HISTORY OF NICOTINE DEPENDENCE 06/16/2019 AKANKSHA [facility], ALI FACP CCDS Ot E11.9 TYPE 2 DIABETES MELLITUS WITHOUT COMPLIC 06/16/2019 AKANKSHA [facility], ALI FACP CCDS Ot I25.10 ATHSCL HEART DISEASE OF [place] CORONARY 06/16/2019 AKANKSHA [facility], ALI FACP CCDS Ot I34.0 NONRHEUMATIC MITRAL (VALVE) INSUFFICIENC 06/16/2019 [facility] FACP CCDS Ot I77.89 OTHER SPECIFIED DISORDERS OF ARTERIES AN 06/16/2019 [facility] FACP CCDS Ot Z86.73 PRSNL HX OF TIA (TIA), AND CEREB INFRC W 06/16/2019 [facility] FACP CCDS Ot Z87.891 PERSONAL HISTORY OF NICOTINE DEPENDENCE 07/02/2019 LISSA OATES APRN Ot G47.30 SLEEP APNEA, UNSPECIFIED 07/02/2019 LISSA OATES APRN Ot J44.9 CHRONIC OBSTRUCTIVE PULMONARY DISEASE, U 07/02/2019 LISSA OATES APRN Ot R59.0 LOCALIZED ENLARGED LYMPH NODES 07/02/2019 LISSA OATES APRN Ot Z72.0 TOBACCO USE 07/02/2019 LISSA OATES APRN Ot Z85.118 PERSONAL HISTORY OF MALIGNANT NEOPLASM O 10/08/2019 PAGE CHAPO FERRO Ot C34.30 MALIGNANT NEOPLASM OF LOWER LOBE, UNSP B 10/08/2019 CHAPO BARRETO MD, Ot J43.2 CENTRILOBULAR EMPHYSEMA 10/08/2019 CHAPO BARRETO MD, Ot K86.9 DISEASE OF PANCREAS, UNSPECIFIED 11/04/2019 CHAPO BARRETO MD, Ot C34.30 MALIGNANT NEOPLASM OF LOWER LOBE, UNSP B 11/04/2019 CHAPO BARRETO MD, Ot J43.2 CENTRILOBULAR EMPHYSEMA 11/04/2019 CHAPO BARRETO MD, Ot K86.9 DISEASE OF PANCREAS, UNSPECIFIED Procedures Code Description [place] [address] XRAY CHEST 2 VIEW 05/24/2012 Cardiolog Bradly Begum 05/24/2012 33070 ROUT INE VENIPUNCTURE 06/05/2012 92402 A1C (IN-HOUSE) 06/05/2012 78382 CBC 06/05/2012 26912 LIVE R PANEL (LFT) 06/05/2012 54023 CMP 06/05/2012 [id number] GF R CALC (RESULT ONLY) 06/05/2012 23687 ROUT INE VENIPUNCTURE 06/07/2012 94754 CBC 06/07/2012 45594 CMP 06/07/2012 74398 LIPI D PANEL 06/07/2012 96800 MAGNESIUM 06/07/2012 [id number] GF R CALC (RESULT ONLY) 06/07/2012 29840 TSH 06/07/2012 40534 LIPASE 06/07/2012 90855 BNP 06/07/2012 40088 PSA FREE AND TOTAL 06/07/2012 74069 EKG, TRACING (IN-HOUSE) 06/09/2012 37707 ECHO 2D 06/09/2012 44823 OXIMETRY 06/09/2012 17803 BMP 07/03/2012 25110 CMP 07/03/2012 64732 LIPI D PANEL 07/03/2012 02265 A1C (IN-HOUSE) 07/03/2012 38501 HEMO GLOBIN (IN-HOUSE) 07/03/2012 35222 CBC 07/03/2012 20929 ROUT INE VENIPUNCTURE 08/05/2012 96676 EKG, TRACING (IN-HOUSE) 08/05/2012 80988 HEMO GLOBIN (IN-HOUSE) 08/05/2012 19551 A1C (IN-HOUSE) 08/05/2012 62244 CBC 08/05/2012 56770 CMP 08/05/2012 31146 LIPI D PANEL 08/05/2012 60579 A1C (IN-HOUSE) 08/23/2012 Jeri Andrade 08/23/2012 Orthopedi Storm Jules 09/06/2012 77039 A1C (IN-HOUSE) 11/29/2012 36955 ROUT INE VENIPUNCTURE 02/07/2013 [id number] GF R CALC (RESULT ONLY) 02/07/2013 40166 CMP 02/07/2013 41449 LIPI D PANEL 02/07/2013 32110 A1C (IN-HOUSE) 03/21/2013 71456 ROUT INE VENIPUNCTURE 03/26/2013 72324 OXIMETRY 03/26/2013 [id number] IM MATURE PLATELET FRACTION (RESULT ONLY) 03/27/2013 29734 DIFF ERENTIAL WBC COUNT (CBC DIFF RESULT) 03/27/2013 79449 RETI CULOCYTE COUNT 03/27/2013 01966 KENNY PHERIAL BLOOD SMEAR 03/27/2013 [id number] CO MPLETE BLOOD COUNT NO DIFF (CBC Result) 03/27/2013 [id number] HE MATOLOGY OTHER REPORT 03/27/2013 22463 ROUT INE VENIPUNCTURE 06/09/2013 [id number] GF R CALC (RESULT ONLY) 06/09/2013 18805 CMP 06/09/2013 65663 LIPI D PANEL 06/09/2013 00997 A1C (IN-HOUSE) 06/23/2013 12466 ROUT INE VENIPUNCTURE 09/17/2013 [id number] GF R CALC (RESULT ONLY) 09/17/2013 64607 CMP 09/17/2013 32874 LIPI D PANEL 09/17/2013 08132 OXIMETRY 09/24/2013 04844 A1C (IN-HOUSE) 02/18/2014 07607 ROUT INE VENIPUNCTURE 02/18/2014 61921 MICR O ALBUMIN-IN HOUSE 02/18/2014 35552 LIPI D PANEL 02/18/2014 70611 LIVE R PANEL (LFT) 02/18/2014 18268 URIC ACID 02/18/2014 Results Test Result Range CBC With Differential/Platelet - 7 08:12 WBC 8.0 x10E3/uL 3.4-10.8 RBC 5.30 x10E6/uL 4.14-5.80 Hemoglobin 16.0 g/dL 12.6-17.7 Hematocrit 48.4 % 37.5-51.0 MCV 91 fL 79-97 MCH 30.2 pg 26.6-33.0 MCHC 33.1 g/dL 31.5-35.7 RDW 14.6 % 12.3-15.4 Platelets 249 x10E3/uL 150-379 Neutrophils 60 % Lymphs 28 % Monocytes 8 % Eos 3 % Basos 1 % Neutrophils (Absolute) 4.8 x10E3/uL 1.4- 7.0 Lymphs (Absolute) 2.3 x10E3/uL 0.7-3.1 Monocytes(Absolute) 0.7 x10E3/uL 0.1-0.9 Eos (Absolute) 0.2 x10E3/uL 0.0-0.4 Baso (Absolute) 0.1 x10E3/uL 0.0-0.2 Immature Granulocytes 0 % Immature Grans (Abs) 0.0 x10E3/uL 0.0-0. 1 Comp. Metabolic Panel (14) - 07/06/16 08 :12 Glucose, Serum 123 mg/dL 65-99 BUN 15 [...] uIU/mL 0.450-4.500 C-Reactive Protein, Cardiac - 07/06/16 0 8:12 C-Reactive Protein, Cardiac 2.36 mg/L 0. 00-3.00 B-Type Natriuretic Peptide - 07/06/16 08 :12 B-Type Natriuretic Peptide 44.6 pg/mL 0. 0-100.0 Methicillin resistant Staphylococcus aur eus (MRSA) screening culture - 07/31/16 10:55 Methicillin resistant Staphylococcus aureus (MRSA) scr eening culture NEG NRG Capillary blood glucose measurement by g lucometer (mass/volume) - 07/31/16 11:35 Capillary blood glucose measurement by glucometer (mas s/volume) 105 mg/dL 70-110 Automated blood complete blood count (he mogram) panel - 09/12/16 09:36 Blood leukocytes automated count (number/volume) 10.1 10*3/uL 4.3-11.0 Blood erythrocytes automated count (number/volume) 5.31 10*6/uL 4.35-5.85 Venous blood hemoglobin measurement (mass/volume) 16.0 g/dL 13.3-17.7 Blood hematocrit (volume fraction) 48 % 40-54 Automated erythrocyte mean corpuscular volume 90 [ foz_us] 80-99 Automated erythrocyte mean corpuscular h emoglobin (mass per erythrocyte) 30 pg 25-34 Automated erythrocyte mean corpuscular h emoglobin concentration measurement (mass/volume) 34 g/dL 32-36 Automated erythrocyte distribution width ratio 13. 9 % 10.0- 14.5 Automated blood platelet count (count/volume) 210 10*3/uL 130-400 Automated blood platelet mean volume measurement 10.6 [foz_us] 7.4-10.4 PT panel in platelet poor plasma by coag ulation assay - 09/12/16 09:36 Prothrombin time (PT) in platelet poor plasma by coagu lation assay 12.0 s 12.2-14.7 INR in platelet poor plasma or blood by coagulation as say 0.9 0.8-1.4 Activated partial thromboplastin time (a PTT) in platelet poor plasma bycoagulation assay - 09/12/16 09:36 Activated partial thromboplastin time (a PTT) in platelet poor plasma bycoagulation assay 25 s 24-35 Comprehensive metabolic panel - 09/12/16 09:36 Serum or plasma sodium measurement (moles/volume) 141 mmol/L 135-145 Serum or plasma potassium measurement (moles/volume) 4.1 mmol/L 3.6-5.0 Serum or plasma chloride measurement (moles/volume) 107 mmol/L 98-107 Carbon dioxide 23 mmol/L 21-32 Serum or plasma anion gap determination (moles/volume) 11 mmol/L 5-14 Serum or plasma urea nitrogen measurement (mass/volume ) 17 mg/dL 7-18 Serum or plasma creatinine measurement (mass/volume) 1.08 mg/dL 0.60-1.30 Serum or plasma urea nitrogen/creatinine mass ratio 16 NRG Serum or plasma creatinine measurement w ith calculation of estimated glomerular filtration rate > NRG Serum or plasma glucose measurement (mass/volume) 102 mg/dL 70-105 Serum or plasma calcium measurement (mass/volume) 9.9 mg/dL 8.5-10.1 Serum or plasma total bilirubin measurement (mass/volu me) 0.4 mg/dL 0.1-1.0 Serum or plasma alkaline phosphatase shelley surement (enzymatic activity/volume) 100 U/L 40-136 Serum or plasma aspartate aminotransfera se measurement (enzymatic activity/volume) 24 U/L 5-34 Serum or plasma alanine aminotransferase measurement (enzymatic activity/volume) 29 U/L 0-55 Serum or plasma protein measurement (mass/volume) 7.6 g/dL 6.4-8.2 Serum or plasma albumin measurement (mass/volume) 4.3 g/dL 3.2-4.5 Lipid 1996 panel - 09/12/16 09:36 Serum or plasma triglyceride measurement (mass/volume) 148 mg/dL <150 Serum or plasma cholesterol measurement (mass/volume) 142 mg/dL < 200 Serum or plasma cholesterol in HDL measurement (mass/v olume) 37 mg/dL 40-60 Cholesterol in LDL [mass/volume] in serum or plasma by direct assay 75 mg/dL 1-129 Serum or plasma cholesterol in VLDL measurement (mass/ volume) 30 mg/dL 5-40 Methicillin resistant Staphylococcus aur eus (MRSA) screening culture - 09/12/16 09:36 Methicillin resistant Staphylococcus aureus (MRSA) scr eening culture NEG NRG Comprehensive metabolic panel - 12/31/17 13:20 Serum or plasma sodium measurement (moles/volume) 140 mmol/L 135-145 Serum or plasma potassium measurement (moles/volume) 4.2 mmol/L 3.6-5.0 Serum or plasma chloride measurement (moles/volume) 107 mmol/L 98-107 Carbon dioxide 25 mmol/L 21-32 Serum or plasma anion gap determination (moles/volume) 8 mmol/L 5-14 Serum or plasma urea nitrogen measurement (mass/volume ) 13 mg/dL 7-18 Serum or plasma creatinine measurement (mass/volume) 1.14 mg/dL 0.60-1.30 Serum or plasma urea nitrogen/creatinine mass ratio 11 NRG Serum or plasma creatinine measurement w ith calculation of estimated glomerular filtration rate > NR Serum or plasma glucose measurement (mass/volume) 134 mg/dL 70-105 Serum or plasma calcium measurement (mass/volume) 9.3 mg/dL 8.5-10.1 Serum or plasma total bilirubin measurement (mass/volu me) 0.3 mg/dL 0.1-1.0 Serum or plasma alkaline phosphatase shelley surement (enzymatic activity/volume) 131 U/L 40-136 Serum or plasma aspartate aminotransfera se measurement (enzymatic activity/volume) 21 U/L 5-34 Serum or plasma alanine aminotransferase measurement (enzymatic activity/volume) 25 U/L 0-55 Serum or plasma protein measurement (mass/volume) 7.2 g/dL 6.4-8.2 Serum or plasma albumin measurement (mass/volume) 4.1 g/dL 3.2-4.5 CALCIUM CORRECTED 9.2 mg/dL 8.5-10.1 PT panel in platelet poor plasma by coag ulation assay - 12/31/17 13:20 Prothrombin time (PT) in platelet poor plasma by coagu lation assay 12.5 s 12.2-14.7 INR in platelet poor plasma or blood by coagulation as say 0.9 0.8-1.4 Activated partial thromboplastin time (a PTT) in platelet poor plasma bycoagulation assay - 12/31/17 13:20 Activated partial thromboplastin time (a PTT) in platelet poor plasma bycoagulation assay 25 s 24-35 Fibrin D-dimer FEU measurement in platel et poor plasma (mass/volume) - 12/31/17 13:20 Fibrin D-dimer FEU measurement in platelet poor plasma (mass/volume) < ug/mL 0.00-0.49 Serum or plasma troponin i.cardiac measu rement (mass/volume) - 12/31/17 13:20 Serum or plasma troponin i.cardiac measurement (mass/v olume) < ng/mL <0.30 Capillary blood glucose measurement by g lucometer (mass/volume) - 12/31/17 13:47 Capillary blood glucose measurement by glucometer (mas s/volume) 149 mg/dL 70-110 Methicillin resistant Staphylococcus aur eus (MRSA) screening culture - 12/31/17 18:00 Methicillin resistant Staphylococcus aureus (MRSA) scr eening culture NEG NRG Complete blood count (CBC) with automate d white blood cell (WBC) differential - 01/01/18 02:55 Blood leukocytes automated count (number/volume) 8.4 10*3/uL 4.3-11.0 Blood erythrocytes automated count (number/volume) 4.85 10*6/uL 4.35-5.85 Venous blood hemoglobin measurement (mass/volume) 14.5 g/dL 13.3-17.7 Blood hematocrit (volume fraction) 43 % 40-54 Automated erythrocyte mean corpuscular volume 89 [ foz_us] 80-99 Automated erythrocyte mean corpuscular h emoglobin (mass per erythrocyte) 30 pg 25-34 Automated erythrocyte mean corpuscular h emoglobin concentration measurement (mass/volume) 34 g/dL 32-36 Automated erythrocyte distribution width ratio 16. 1 % 10.0- 14.5 Automated blood platelet count (count/volume) 218 10*3/uL [...] 10*3 1.0-4.0 Blood monocytes automated count (number/volume) 1. 0 10*3 0.0-1.0 Automated eosinophil count 0.3 10*3/uL 0 .0-0.3 Automated blood basophil count (count/volume) 0.1 10*3/uL 0.0-0.1 Comprehensive metabolic panel - 01/01/18 02:55 Serum or plasma sodium measurement (moles/volume) 141 mmol/L 135-145 Serum or plasma potassium measurement (moles/volume) 4.1 mmol/L 3.6-5.0 Serum or plasma chloride measurement (moles/volume) 109 mmol/L 98-107 Carbon dioxide 19 mmol/L 21-32 Serum or plasma anion gap determination (moles/volume) 13 mmol/L 5-14 Serum or plasma urea nitrogen measurement (mass/volume ) 13 mg/dL 7-18 Serum or plasma creatinine measurement (mass/volume) 0.95 mg/dL 0.60-1.30 Serum or plasma urea nitrogen/creatinine mass ratio 14 NRG Serum or plasma creatinine measurement w ith calculation of estimated glomerular filtration rate > NRG Serum or plasma glucose measurement (mass/volume) 111 mg/dL 70-105 Serum or plasma calcium measurement (mass/volume) 9.0 mg/dL 8.5-10.1 Serum or plasma total bilirubin measurement (mass/volu me) 0.4 mg/dL 0.1-1.0 Serum or plasma alkaline phosphatase shelley surement (enzymatic activity/volume) 110 U/L 40-136 Serum or plasma aspartate aminotransfera se measurement (enzymatic activity/volume) 21 U/L 5-34 Serum or plasma alanine aminotransferase measurement (enzymatic activity/volume) 25 U/L 0-55 Serum or plasma protein measurement (mass/volume) 5.8 g/dL 6.4-8.2 Serum or plasma albumin measurement (mass/volume) 3.5 g/dL 3.2-4.5 CALCIUM CORRECTED 9.4 mg/dL 8.5-10.1 Serum or plasma phosphate measurement (m ass/volume) - 01/01/18 02:55 Serum or plasma phosphate measurement (mass/volume) 3.8 mg/dL 2.3-4.7 Magnesium - 01/01/18 02:55 Magnesium 2.0 mg/dL 1.8-2.4 Lipid 1996 panel - 01/01/18 02:55 Serum or plasma triglyceride measurement (mass/volume) 261 mg/dL <150 Serum or plasma cholesterol measurement (mass/volume) 141 mg/dL < 200 Serum or plasma cholesterol in HDL measurement (mass/v olume) 28 mg/dL 40-60 Cholesterol in LDL [mass/volume] in serum or plasma by direct assay 88 mg/dL 1-129 Serum or plasma cholesterol in VLDL measurement (mass/ volume) 52 mg/dL 5-40 PANEL (PROFILE 1) - 01/10/18 10 :09 Prescribed Drug 1 Lyrica(TM) NRG Creatinine 36.1 mg/dL > or = 20.0 pH 6.54 4.5 - 9.0 Oxidant NEGATIVE [...] 7-25 CREATININE 1.15 mg/dL 0.70-1.25 eGFR NON-AFR. [place] 67 mL/min/1.73m2 > OR = 60 eGFR 78 mL/min/1.73m2 > OR = 60 BUN/CREATININE RATIO NOT APPLICABLE (calc) 6-22 SODIUM 138 mmol/L 135-146 POTASSIUM 4.7 mmol/L 3.5-5.3 CHLORIDE 101 mmol/L 98-110 CARBON DIOXIDE 27 mmol/L 20-32 CALCIUM 9.6 mg/dL 8.6-10.3 PROTEIN, TOTAL 6.9 g/dL 6.1-8.1 ALBUMIN 4.4 g/dL 3.6-5.1 GLOBULIN 2.5 g/dL (calc) 1.9-3.7 ALBUMIN/GLOBULIN RATIO 1.8 (calc) 1.0-2. 5 BILIRUBIN, TOTAL 0.5 mg/dL 0.2-1.2 ALKALINE PHOSPHATASE 138 U/L 40-115 AST 24 U/L 10-35 ALT 27 U/L 9-46 Arterial blood gas measurement - 8 11:15 Blood pCO2 35 mm[Hg] 35-45 Blood pO2 65 mm[Hg] 79-93 Arterial blood bicarbonate measurement (moles/volume) 23 mmol/L 23-27 Arterial blood base excess by calculation -0.8 mmo l/L -2.5-2.5 Arterial blood oxygen saturation measurement 94 % 94-100 * Inhaled oxygen flow rate ROOM AIR NRG Arterial blood pH measurement with patient temperature correction 7.43 7.37-7.43 Arterial blood carbon dioxide, total measurement (mole s/volume) 24.1 mmol/L 21.0-31.0 Body site RT BRACHIAL NRG Assessment of wrist artery patency prior to arterial p uncture YES-POS NRG Setting of ventilation mode NO NR G Measurement of body temperature 97.8 NRG Methicillin resistant Staphylococcus aur eus (MRSA) screening culture - 03/29/18 11:50 Methicillin resistant Staphylococcus aureus (MRSA) scr eening culture NEG NRG Complete blood count (CBC) with automate d white blood cell (WBC) differential - 03/29/18 12:00 Blood leukocytes automated count (number/volume) 9.7 10*3/uL 4.3-11.0 Blood erythrocytes automated count (number/volume) 5.40 10*6/uL 4.35-5.85 Venous blood hemoglobin measurement (mass/volume) 15.9 g/dL 13.3-17.7 Blood hematocrit (volume fraction) 47 % 40-54 Automated erythrocyte mean corpuscular volume 86 [ foz_us] 80-99 Automated erythrocyte mean corpuscular h emoglobin (mass per erythrocyte) 29 pg 25-34 Automated erythrocyte mean corpuscular h emoglobin concentration measurement (mass/volume) 34 g/dL 32-36 Automated erythrocyte distribution width ratio 14. 9 % 10.0- 14.5 Automated blood platelet count (count/volume) 215 10*3/uL [...] 10*3 1.0-4.0 Blood monocytes automated count (number/volume) 1. 0 10*3 0.0-1.0 Automated eosinophil count 0.3 10*3/uL 0 .0-0.3 Automated blood basophil count (count/volume) 0.1 10*3/uL 0.0-0.1 Whole blood basic metabolic panel - 11/07 12:00 Serum or plasma sodium measurement (moles/volume) 138 mmol/L 135-145 Serum or plasma potassium measurement (moles/volume) 4.0 mmol/L 3.6-5.0 Serum or plasma chloride measurement (moles/volume) 103 mmol/L 98-107 Carbon dioxide 24 mmol/L 21-32 Serum or plasma anion gap determination (moles/volume) 11 mmol/L 5-14 Serum or plasma urea nitrogen measurement (mass/volume ) 19 mg/dL 7-18 Serum or plasma creatinine measurement (mass/volume) 0.96 mg/dL 0.60-1.30 Serum or plasma urea nitrogen/creatinine mass ratio 20 NRG Serum or plasma creatinine measurement w ith calculation of estimated glomerular filtration rate > NRG Serum or plasma glucose measurement (mass/volume) 107 mg/dL 70-105 Serum or plasma calcium measurement (mass/volume) 9.7 mg/dL 8.5-10.1 Capillary blood glucose measurement by g lucometer (mass/volume) - 04/05/18 07:59 Capillary blood glucose measurement by glucometer (mas s/volume) 115 mg/dL 70-110 Capillary blood glucose measurement by g lucometer (mass/volume) - 04/06/18 05:09 Capillary blood glucose measurement by glucometer (mas s/volume) 126 mg/dL 70-110 LIPID PANEL - 08/22/18 09:33 CHOLESTEROL, TOTAL 125 mg/dL <200 HDL CHOLESTEROL 45 mg/dL >40 TRIGLYCERIDES 99 mg/dL <150 LDL-CHOLESTEROL 62 mg/dL (calc) NRG CHOL/HDLC RATIO 2.8 (calc) <5.0 NON HDL CHOLESTEROL 80 mg/dL (calc) <130 CMP - 08/22/18 09:33 GLUCOSE 116 mg/dL 65-99 UREA NITROGEN (BUN) 20 mg/dL 7-25 CREATININE 1.07 mg/dL 0.70-1.25 eGFR NON-AFR. [place] 73 mL/min/1.73m2 > OR = 60 eGFR 85 mL/min/1.73m2 > OR = 60 BUN/CREATININE RATIO NOT APPLICABLE (calc) 6-22 SODIUM 137 mmol/L 135-146 POTASSIUM 4.4 mmol/L 3.5-5.3 CHLORIDE 102 mmol/L 98-110 CARBON DIOXIDE 26 mmol/L 20-32 CALCIUM 9.8 mg/dL 8.6-10.3 PROTEIN, TOTAL 7.2 g/dL 6.1-8.1 ALBUMIN 4.5 g/dL 3.6-5.1 GLOBULIN 2.7 g/dL (calc) 1.9-3.7 ALBUMIN/GLOBULIN RATIO 1.7 (calc) 1.0-2. 5 BILIRUBIN, TOTAL 0.4 mg/dL 0.2-1.2 ALKALINE PHOSPHATASE 115 U/L 40-115 AST 21 U/L 10-35 ALT 19 U/L 9-46 CBC - 08/22/18 09:33 WHITE BLOOD CELL COUNT 17.3 Thousand/uL 3.8-10.8 RED BLOOD CELL COUNT 5.18 Million/uL 4.2 0-5.80 HEMOGLOBIN 15.9 g/dL 13.2-17.1 HEMATOCRIT 47.7 % 38.5-50.0 MCV 92.1 fL 80.0-100.0 MCH 30.7 pg 27.0-33.0 MCHC 33.3 g/dL 32.0-36.0 RDW 13.9 % 11.0-15.0 PLATELET COUNT 273 Thousand/uL 140-400 MPV 11.5 fL 7.5-12.5 ABSOLUTE NEUTROPHILS 68882 cells/uL 1500 -7800 ABSOLUTE LYMPHOCYTES 2111 cells/uL 850-3 900 ABSOLUTE MONOCYTES 1228 cells/uL 200-950 ABSOLUTE EOSINOPHILS 17 cells/uL 15-500 ABSOLUTE BASOPHILS 35 cells/uL 0-200 NEUTROPHILS 80.4 % NRG LYMPHOCYTES 12.2 % NRG MONOCYTES 7.1 % NRG EOSINOPHILS 0.1 % NRG BASOPHILS 0.2 % NRG CBC - 09/23/18 08:47 WHITE BLOOD CELL COUNT 10.3 Thousand/uL 3.8-10.8 RED BLOOD CELL COUNT 4.91 Million/uL 4.2 0-5.80 HEMOGLOBIN 14.5 g/dL 13.2-17.1 HEMATOCRIT 45.8 % 38.5-50.0 MCV 93.3 fL 80.0-100.0 MCH 29.5 pg 27.0-33.0 MCHC 31.7 g/dL 32.0-36.0 RDW 13.7 % 11.0-15.0 PLATELET COUNT 224 Thousand/uL 140-400 MPV 11.2 fL 7.5-12.5 ABSOLUTE NEUTROPHILS 6850 cells/uL 1500- 7800 ABSOLUTE LYMPHOCYTES 2122 cells/uL 850-3 900 ABSOLUTE MONOCYTES 989 cells/uL 200-950 ABSOLUTE EOSINOPHILS 268 cells/uL 15-500 ABSOLUTE BASOPHILS 72 cells/uL 0-200 NEUTROPHILS 66.5 % NRG LYMPHOCYTES 20.6 % NRG MONOCYTES 9.6 % NRG EOSINOPHILS 2.6 % NRG BASOPHILS 0.7 % NRG Automated blood complete blood count (formerly [facility]) panel - 01/07/19 07:13 Blood leukocytes automated count (number/volume) 10.0 10*3/uL 4.3-11.0 Blood erythrocytes automated count (number/volume) 5.13 10*6/uL 4.35-5.85 Venous blood hemoglobin measurement (mass/volume) 15.5 g/dL 13.3-17.7 Blood hematocrit (volume fraction) 46 % 40-54 Automated erythrocyte mean corpuscular volume 90 [ foz_us] 80-99 Automated erythrocyte mean corpuscular h emoglobin (mass per erythrocyte) 30 pg 25-34 Automated erythrocyte mean corpuscular h emoglobin concentration measurement (mass/volume) 34 g/dL 32-36 Automated erythrocyte distribution width ratio 14. 9 % 10.0- 14.5 Automated blood platelet count (count/volume) 257 10*3/uL 130-400 Automated blood platelet mean volume measurement 11.1 [foz_us] 7.4-10.4 Comprehensive metabolic panel - 01/07/19 07:13 Serum or plasma sodium measurement (moles/volume) 140 mmol/L 135-145 Serum or plasma potassium measurement (moles/volume) 4.1 mmol/L 3.6-5.0 Serum or plasma chloride measurement (moles/volume) 106 mmol/L 98-107 Carbon dioxide 24 mmol/L 21-32 Serum or plasma anion gap determination (moles/volume) 10 mmol/L 5-14 Serum or plasma urea nitrogen measurement (mass/volume ) 16 mg/dL 7-18 Serum or plasma creatinine measurement (mass/volume) 1.11 mg/dL 0.60-1.30 Serum or plasma urea nitrogen/creatinine mass ratio 14 NRG Serum or plasma creatinine measurement w ith calculation of estimated glomerular filtration rate > NRG Serum or plasma glucose measurement (mass/volume) 123 mg/dL 70-105 Serum or plasma calcium measurement (mass/volume) 9.4 mg/dL 8.5-10.1 Serum or plasma total bilirubin measurement (mass/volu me) 0.5 mg/dL 0.1-1.0 Serum or plasma alkaline phosphatase shelley surement (enzymatic activity/volume) 129 U/L 40-136 Serum or plasma aspartate aminotransfera se measurement (enzymatic activity/volume) 19 U/L 5-34 Serum or plasma alanine aminotransferase measurement (enzymatic activity/volume) 21 U/L 0-55 Serum or plasma protein measurement (mass/volume) 7.3 g/dL 6.4-8.2 Serum or plasma albumin measurement (mass/volume) 4.1 g/dL 3.2-4.5 CALCIUM CORRECTED 9.3 mg/dL 8.5-10.1 Lipid 1996 panel - 01/07/19 07:13 Serum or plasma triglyceride measurement (mass/volume) 268 mg/dL <150 Serum or plasma cholesterol measurement (mass/volume) 171 mg/dL < 200 Serum or plasma cholesterol in HDL measurement (mass/v olume) 34 mg/dL 40-60 Cholesterol in LDL [mass/volume] in serum or plasma by direct assay 104 mg/dL 1-129 Serum or plasma cholesterol in VLDL measurement (mass/ volume) 54 mg/dL 5-40 PT panel in platelet poor plasma by coag ulation assay - 01/07/19 07:13 Prothrombin time (PT) in platelet poor plasma by coagu lation assay 13.0 s 12.2-14.7 INR in platelet poor plasma or blood by coagulation as say 1.0 0.8-1.4 Activated partial thromboplastin time (a PTT) in platelet poor plasma bycoagulation assay - 01/07/19 07:13 Activated partial thromboplastin time (a PTT) in platelet poor plasma bycoagulation assay 27 s 24-35 Methicillin resistant Staphylococcus aur eus (MRSA) screening culture - 01/07/19 07:13 Methicillin resistant Staphylococcus aureus (MRSA) scr eening culture NEG NRG Capillary blood glucose measurement by g lucometer (mass/volume) - 01/07/19 14:39 Capillary blood glucose measurement by glucometer (mas s/volume) 130 mg/dL 70-110 Capillary blood glucose measurement by g lucometer (mass/volume) - 01/07/19 19:49 Capillary blood glucose measurement by glucometer (mas s/volume) 112 mg/dL 70-110 Automated blood complete blood count (he mogram) panel - 01/08/19 03:02 Blood leukocytes automated count (number/volume) 8.9 10*3/uL 4.3-11.0 Blood erythrocytes automated count (number/volume) 4.78 10*6/uL 4.35-5.85 Venous blood hemoglobin measurement (mass/volume) 14.0 g/dL 13.3-17.7 Blood hematocrit (volume fraction) 43 % 40-54 Automated erythrocyte mean corpuscular volume 91 [ foz_us] 80-99 Automated erythrocyte mean corpuscular h emoglobin (mass per erythrocyte) 29 pg 25-34 Automated erythrocyte mean corpuscular h emoglobin concentration measurement (mass/volume) 32 g/dL 32-36 Automated erythrocyte distribution width ratio 14. 9 % 10.0- 14.5 Automated blood platelet count (count/volume) 240 10*3/uL 130-400 Automated blood platelet mean volume measurement 11.1 [foz_us] 7.4-10.4 Whole blood basic metabolic panel - 12/22 12/09 03:02 Serum or plasma sodium measurement (moles/volume) 135 mmol/L 135-145 Serum or plasma potassium measurement (moles/volume) 4.1 mmol/L 3.6-5.0 Serum or plasma chloride measurement (moles/volume) 104 mmol/L 98-107 Carbon dioxide 24 mmol/L 21-32 Serum or plasma anion gap determination (moles/volume) 7 mmol/L 5-14 Serum or plasma urea nitrogen measurement (mass/volume ) 17 mg/dL 7-18 Serum or plasma creatinine measurement (mass/volume) 1.04 mg/dL 0.60-1.30 Serum or plasma urea nitrogen/creatinine mass ratio 16 NRG Serum or plasma creatinine measurement w ith calculation of estimated glomerular filtration rate > NRG Serum or plasma glucose measurement (mass/volume) 112 mg/dL 70-105 Serum or plasma calcium measurement (mass/volume) 9.3 mg/dL 8.5-10.1 Capillary blood glucose measurement by g lucometer (mass/volume) - 01/08/19 08:05 Capillary blood glucose measurement by glucometer (mas s/volume) 150 mg/dL 70-110 COVID-19 ([facility]) - 10/15/19 15:25 Capillary blood glucose measurement by g lucometer (mass/volume) - 11/10/19 23:26 Capillary blood glucose measurement by glucometer (mas s/volume) 131 mg/dL 70-110 Complete blood count (CBC) with automate d white blood cell (WBC) differential - 11/10/19 23:31 Blood leukocytes automated count (number/volume) 10.9 10*3/uL 4.3-11.0 Blood erythrocytes automated count (number/volume) 5.10 10*6/uL 4.35-5.85 Venous blood hemoglobin measurement (mass/volume) 14.5 g/dL 13.3-17.7 Blood hematocrit (volume fraction) 43 % 40-54 Automated erythrocyte mean corpuscular volume 85 [ foz_us] 80-99 Automated erythrocyte mean corpuscular h emoglobin (mass per erythrocyte) 28 pg 25-34 Automated erythrocyte mean corpuscular h emoglobin concentration measurement (mass/volume) 34 g/dL 32-36 Automated erythrocyte distribution width ratio 16. 6 % 10.0- 14.5 Automated blood platelet count (count/volume) 264 10*3/uL 130-400 Automated blood platelet mean volume measurement 10.5 [foz_us] 7.4-10.4 Automated blood neutrophils/100 leukocytes 59 % 42-75 Automated blood lymphocytes/100 leukocytes 29 % 12-44 Blood monocytes/100 leukocytes 8 % 0-12 Automated blood eosinophils/100 leukocytes 3 % 0-10 Automated blood basophils/100 leukocytes 1 % 0-10 Blood neutrophils automated count (number/volume) 6.5 10*3 1.8-7.8 Blood lymphocytes automated count (number/volume) 3.2 10*3 1.0-4.0 Blood monocytes automated count (number/volume) 0. 9 10*3 0.0-1.0 Automated eosinophil count 0.3 10*3/uL 0 .0-0.3 Automated blood basophil count (count/volume) 0.1 10*3/uL 0.0-0.1 Comprehensive metabolic panel - 11/10/19 23:31 Serum or plasma sodium measurement (moles/volume) 138 mmol/L 135-145 Serum or plasma potassium measurement (moles/volume) 4.7 mmol/L 3.6-5.0 Serum or plasma chloride measurement (moles/volume) 103 mmol/L 98-107 Carbon dioxide 21 mmol/L 21-32 Serum or plasma anion gap determination (moles/volume) 14 mmol/L 5-14 Serum or plasma urea nitrogen measurement (mass/volume ) 23 mg/dL 7-18 Serum or plasma creatinine measurement (mass/volume) 1.22 mg/dL 0.60-1.30 Serum or plasma urea nitrogen/creatinine mass ratio 19 NRG Serum or plasma creatinine measurement w ith calculation of estimated glomerular filtration rate 60 NRG Serum or plasma glucose measurement (mass/volume) 126 mg/dL 70-105 Serum or plasma calcium measurement (mass/volume) 9.3 mg/dL 8.5-10.1 Serum or plasma total bilirubin measurement (mass/volu me) < mg/dL 0.1-1.0 Serum or plasma alkaline phosphatase shelley surement (enzymatic activity/volume) 155 U/L 40-136 Serum or plasma aspartate aminotransfera se measurement (enzymatic activity/volume) 18 U/L 5-34 Serum or plasma alanine aminotransferase measurement (enzymatic activity/volume) 16 U/L 0-55 Serum or plasma protein measurement (mass/volume) 7.1 g/dL 6.4-8.2 Serum or plasma albumin measurement (mass/volume) 4.0 g/dL 3.2-4.5 CALCIUM CORRECTED 9.3 mg/dL 8.5-10.1 Serum or plasma troponin i.cardiac measu rement (mass/volume) - 11/10/19 23:31 Serum or plasma troponin i.cardiac measurement (mass/v olume) < ng/mL <0.028 PT panel in platelet poor plasma by coag ulation assay - 11/10/19 23:31 Prothrombin time (PT) in platelet poor plasma by coagu lation assay 15.0 s 12.2-14.7 INR in platelet poor plasma or blood by coagulation as say 1.1 0.8-1.4 Activated partial thromboplastin time (a PTT) in platelet poor plasma bycoagulation assay - 11/10/19 23:31 Activated partial thromboplastin time (a PTT) in platelet poor plasma bycoagulation assay 25 s 24-35 Fibrin D-dimer FEU measurement in platel et poor plasma (mass/volume) - 11/10/19 23:31 Fibrin D-dimer FEU measurement in platelet poor plasma (mass/volume) 1.08 ug/mL 0.00-0.49 Encounters ACCT No. Visit Date/Time Discharge Status Pt. 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 [id number] 09/16/2019 07:06:00 23:59:59 CLS Outpatient AKANKSHA FERRO FACC, DELBERT GOEL CC DS [facility] CARD CHEST DISCO MFORT,HX OF TOBACCO USE,CAD [id number] 06/10/2019 08:38:00 23:59:59 CLS Outpatient AKANKSHA DELBERT FERRO FACC, FACP CC DS [facility] CARD CAD,DM [id number] 04/30/2019 08:00:00 13:00:00 DIS Outpatient DELBERT VALE MD, FACC, FACP CC DS [facility] CR STENT [id number] 04/30/2019 08:28:00 23:59:59 CLS Outpatient LISSA OATES INDUSTRIAL CLEANING TECHNICIAN [facility] RAD COPD [id number] 01/07/2019 06:50:00 10:11:00 DIS Outpatient DELBERT VALE MD, FACC, FACP DS [facility] CATH CAD [id number] 11/28/2018 12:48:00 13:50:00 DIS Outpatient ANAYELI KIRKPATRICK INDUSTRIAL CLEANING TECHNICIAN [facility] REHAB LOW BACK PAIN [id number] 11/28/2018 12:49:00 13:45:00 DIS Outpatient PAMELA RAMSEY [facility] REHAB R KNEE PAIN [id number] 08/14/2018 09:13:00 23:59:59 CLS Outpatient PAMELA RAMSEY [facility] RAD BACK PAIN [id number] 06/13/2018 08:06:00 23:59:59 CLS Outpatient PAMELA RAMSEY [facility] RAD BACK PAIN [id number] 04/05/2018 07:31:00 09:20:00 DIS Outpatient ADRIEL WHEELER MD [facility] SDC RIGHT PAROTID MASS WART HINS TUMOR [id number] 03/29/2018 11:14:00 15:11:00 DIS Outpatient ADRIEL WHEELER MD [facility] PREOP RIGHT PAROTIDECTOMY [id number] 03/12/2018 07:37:00 23:59:59 CLS Outpatient DELBERT VALE MD, FACC, FACP DS [facility] CATH H/O TIA,PALPITATIONS,SOB,CAD [id number] 03/05/2018 12:16:00 018 23:59:59 CLS Preadmit LISSA OATES APRN [facility] PULM COPD,HISTORY OF LUNG CANCER,SOB,TOBACCO USER [id number] 03/05/2018 12:14:00 018 23:59:59 CLS Outpatient LISSA OATES APRN [facility] RAD COPD,HISTORY OF LUNG CANCER,SOB,TOBACCO USER [id number] 03/05/2018 10:37:00 018 23:59:59 CLS Outpatient LISSA OATES APRN [facility] RT J44.9,Z85.118 [id number] 12/31/2017 15:45:00 018 14:05:00 DIS Inpatient SRAVAN LOVE MD [facility] ICU CVA POSSIBLE [id number] 09/21/2016 13:34:00 017 23:59:59 CLS Outpatient AKANKSHA FERRO FACC, DELBERT GOEL CC DS [facility] CARD I25.10,E13. 9 [id number] 09/12/2016 08:59:00 017 18:00:00 DIS Outpatient SRIDHAR BLACK [facility] CATH CAD,DM,HL [id number] 09/07/2016 15:57:00 017 23:59:59 CLS Preadmit AKANKSHA FERRO FACHiwot, DELBERT GOEL CCDS [facility] RT I25.10,E13.9 [id number] 07/31/2016 10:29:00 017 13:50:00 DIS Out[facility] [id number] 07/28/2016 09:18:00 017 13:24:00 DIS Outpatient MILE CHOWDHURY DO [facility] PREOP PORT REMOVAL [id number] 04/28/2015 00:10:00 016 23:59:59 CLS Preadmit JAMMIE NAVA MD [facility] ONC [id number] 04/14/2015 14:37:00 016 00:01:00 DIS Outpatient JAMMIE NAVA MD [facility] ONC [id number] 01/20/2015 12:38:00 015 00:01:00 DIS Outpatient JAMMIE NAVA MD [facility] ONC [id number] 12/16/2014 08:58:00 015 23:59:59 CLS Outpatient VISHNU STARKS [facility] ONC [id number] 11/10/2014 14:23:00 015 23:59:59 CLS Outpatient ESTEVAN FERRO, CHAPO Arora ia [facility] RAD NEOPLASM, [id number] 09/01/2014 12:50:00 015 14:00:00 DIS Outpatient DARSHAN RODRIGUEZ MD [facility] CATH CHEST PAIN R LUNG MASS [id number] 12/30/2012 06:03:00 013 10:10:00 DIS Outpatient GABI VALENCIA MD [facility] HEALED FRACTURE RIGHT T IBIA WITH RETAINED HARDWARE [id number] 12/25/2012 07:40:00 013 23:59:59 CLS Outpatient GABI VALENCIA MD [facility] PREOP HEALED FRACTURE RIGHT T IBIA WITH RETAINED HARDWARE [id number] 11/11/2019 12:00:00 P EN Preadmit AKANKSHA FERRO FACC, DELBERT GOEL CCDS [facility] CATH CAD [id number] 11/10/2019 23:43:00 Document Registration [id number] 09/01/2014 12:38:00 Document Registration [id number] 09/01/2014 12:38:00 Document Registration [id number] 06/06/2012 10:32:00 Document Registration [id number] 08/29/2011 20:50:00 Document Registration [id number] 11/16/2010 05:38:00 Document Registration [id number] 11/08/2010 06:44:00 Document Registration [id number] 10/15/2019 14:00:00 10/15/2019 23:59:5 9 CLS Outpatient JAYE RIGGS APRN [facility] [id number] 10/15/2019 14:00:00 Document Registration [id number] 09/23/2018 09:00:00 Document Registration [id number] 08/22/2018 09:00:00 Document Registration [id number] 03/01/2018 08:00:00 Document Registration [id number] 01/10/2018 09:20:00 Document Registration [id number] 02/18/2014 11:25:00 02/18/2014 23:59: 59 CLS Outpatient JAYE RIGGS APRN [id number] 09/24/2013 08:52:00 09/24/2013 23:59: 59 CLS Outpatient IRMA ROGER DO [id number] 09/17/2013 08:27:00 09/17/2013 23:59: 59 CLS Outpatient JAYE RIGGS APRN [place] [id number] 06/23/2013 10:57:00 06/23/2013 23:59: 59 CLS Outpatient ONEIL HODGE JAYE Block [id number] 06/09/2013 07:54:00 06/09/2013 23:59: 59 CLS Outpatient ONEIL JAIMESN JAYE Block [id number] 04/14/2013 10:21:00 04/14/2013 23:59: 59 CLS Outpatient DARSHAN RODRIGUEZ MD [id number] 03/26/2013 09:21:00 03/26/2013 23:59: 59 CLS Outpatient DARSHAN RODRIGUEZ MD [id number] 03/21/2013 14:10:00 03/21/2013 23:59: 59 CLS Outpatient DARSHAN RODRIGUEZ MD [id number] 02/07/2013 10:19:00 02/07/2013 23:59: 59 CLS Outpatient 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JAYE Bobo [id number] 07/03/2012 09:00:00 07/03/2012 23:59: 59 CLS Outpatient [id number] 06/14/2012 10:00:00 06/14/2012 23:59: 59 CLS Outpatient 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JYAE Bobo [id number] 06/07/2012 08:04:00 06/07/2012 23:59: 59 CLS Outpatient 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JAYE Bobo [id number] 05/24/2012 09:01:00 05/24/2012 23:59: 59 [facility] [id number] 11/29/2012 09:05:00 Document Registration [id number] 10/17/2012 13:38:00 Document Registration [id number] 09/06/2012 11:40:00 Document Registration [id number] 08/23/2012 08:42:00 Document Registration [id number] 08/05/2012 08:02:00 Document Registration
[2019-11-11] MEDS ORDERED: LACTATED RINGERS 1,000 ML IV ONE (02:49)
[2019-11-11] MEDS: LACTATED RINGERS 1,000 ML IV SCH ×2 (03:00→14:52)
[2019-11-11 03:07] LABS: BILIRUBIN,URINE NEGATIVE (NEGATIVE); CLARITY,URINE CLEAR; COLOR,URINE YELLOW; GLUCOSE, URINE (UA) NEGATIVE (NEGATIVE); KETONES,URINE NEGATIVE (NEGATIVE); LEUKOCYTE ESTERASE ,URINE NEGATIVE (NEGATIVE); NITRITE,URINE NEGATIVE (NEGATIVE); PH,URINE 5.5 (5-9); PROTEIN,URINE NEGATIVE (NEGATIVE)
[2019-11-11 03:14] LABS: BACTERIA,URINE NEGATIVE /HPF
[2019-11-11 04:02] LABS: BASOPHILS # (AUTO) 0.1 10^3/uL (0.0-0.1); BASOPHILS % (AUTO) 0 % (0-10); EOSINOPHILS # (AUTO) 0.1 10^3/uL (0.0-0.3); EOSINOPHILS % (AUTO) 1 % (0-10); HEMATOCRIT 42 % (40-54); HEMOGLOBIN 13.8 G/DL (13.3-17.7); LYMPHOCYTES # (AUTO) 1.7 X 10^3 (1.0-4.0); LYMPHOCYTES % (AUTO) 13 % (12-44); MEAN CORPUSCULAR HEMOGLOBIN 28 PG (25-34); MEAN CORPUSCULAR HGB CONC 33 G/DL (32-36); MEAN CORPUSCULAR VOLUME 85 FL (80-99); MEAN PLATELET VOLUME 11.2 FL (7.4-10.4); MONOCYTES # (AUTO) 0.9 X 10^3 (0.0-1.0); MONOCYTES % (AUTO) 7 % (0-12); NEUTROPHILS # (AUTO) 10.5 X 10^3 (1.8-7.8); NEUTROPHILS % (AUTO) 79 % (42-75); PLATELET COUNT 241 10^3/uL (130-400); RED CELL DISTRIBUTION WIDTH 16.6 % (10.0-14.5); WHITE BLOOD COUNT 13.3 10^3/uL (4.3-11.0)
[2019-11-11 04:05] LABS: CHLORIDE 107 MMOL/L (98-107); POTASSIUM 4.5 MMOL/L (3.6-5.0); SODIUM 138 MMOL/L (135-145)
[2019-11-11 04:06] LABS: CALCIUM 9.1 MG/DL (8.5-10.1)
[2019-11-11 04:07] LABS: GLUCOSE 113 MG/DL (70-105); TRIGLYCERIDES 196 MG/DL (<150); VLDL CHOLESTEROL 39 MG/DL (5-40)
[2019-11-11 04:08] LABS: CARBON DIOXIDE 19 MMOL/L (21-32)
[2019-11-11 04:11] LABS: CREATININE SERUM 1.04 MG/DL (0.60-1.30); GFR ESTIMATED > 60
[2019-11-11 04:12] LABS: BUN/CREATININE RATIO 20; CHOLESTEROL 121 MG/DL (< 200)
[2019-11-11 04:13] LABS: HDL CHOLESTEROL 28 MG/DL (40-60)
[2019-11-11] MEDS ORDERED: LIDOCAINE 1% INJ 20 ML 20 ML VIAL ONE (06:45)
[2019-11-11] MEDS ORDERED: HEParin (CATH LAB) 0 ML IV ONE (06:45)
--- NOTE | 2019-11-11 07:09 | Diagnostic Imaging Report ---
PROCEDURE: CT head wo r/o stroke. TECHNIQUE: Multiple contiguous axial images were obtained through the brain without the use of intravenous contrast. Auto Exposure Controls were utilized during the CT exam to meet ALARA standards for radiation dose reduction. INDICATION: Heaviness throughout the whole body. Generalized weakness EXAMINATION: CT brain without contrast 11/10/2019 FINDINGS: Multiple axial images of the brain without contrast. There is no evidence for acute hemorrhage or infarct. There is no mass, mass effect, midline shift or hydrocephalus. The paranasal sinuses and mastoid air cells demonstrate no acute abnormality. IMPRESSION: No acute intracranial process. Findings agree with the preliminary report. Dictated by: Dictated on workstation # [id number]
--- NOTE | 2019-11-11 07:24 | NUR ---
NOTIFIED DR. LOVE THAT PTS LAST BP WAS 81/59. NO CURRENT WEAKNESS OR DELAYED SPEECH AT THIS TIME.
--- NOTE | 2019-11-11 07:24 | Diagnostic Imaging Report ---
INDICATION: Whole body heaviness, difficulty speaking. EXAMINATION: Chest 11/10/2019. COMPARISON: 01/01/2018 FINDINGS: The heart is unremarkable. There is pulmonary vascular congestion. Increased markings in both lungs consistent with edema with possible developing infiltrate at the bases. Loop recorder device overlies the left chest. No pneumothorax. No effusions. Hyperdensities in the right lung apex perhaps focal clips. IMPRESSION: 1. Pulmonary edema. 2. Suspected bibasilar infiltrates. Dictated by: Dictated on workstation # [id number]
--- NOTE | 2019-11-11 08:15 | Consultation-Cardiology ---
HPI-Cardiology Cardiology Consultation: Date of Consultation 11/11/19 Time Seen by a Provider: 08:20 Date of Admission 11-10-2019 Attending Physician Alison Vaz MD Admitting Physician [facility] Consulting Physician Beba Serna MD HPI: Chief Complaint: Gen weakness Possible TIA Mr. Black is a 64 year old male admitted to ICU 6 from the ED with c/o generalized weakness, dizziness, expressive aphasia. He reports yesterday he was standing on his deck when he had a sudden onset of dizziness, nausea, weakness, difficulty speaking and SOB. No c/o CP or palpitations. Reports symptoms felt similar to TIA he had several years ago. His summoned EMS. He reports by the time EMS arrived symptoms were improving and continued to improve while in transport. He reports by the time he arrived to the hospital his symptoms had improved, but not completely resolved, but by the time he was admitted to his room symptoms had resolved and not returned. He denies any vision changes or difficulty swallowing. He denies any syncope or near syncope. He denies any CP. He denies any LE swelling. No report of fever or chills. Review of Systems-Cardiology Review of Systems Constitutional: As described under HPI; No chills, No fever Eyes: No vision change Ears/Nose/Throat: No epistaxis, No recent hearing loss Respiratory: As described under HPI Cardiovascular: As described under HPI Gastrointestinal: No constipation, No diarrhea; nausea; No vomiting Genitourinary: No dysuria, No hematuria Musculoskeletal: joint pain Skin: No rash on exposed areas, No ulcerations on exposed areas Psychiatric/Neurological: As described under HPI Hematologic: No bleeding abnormalities ILM-Btyhix-Ocjkaa Hx Patient Social History Alcohol Use: Denies Use Recreational Drug Use: Yes Smoking Status: Current Everyday Smoker Type Used: Cigarettes Recent Foreign Travel: No Recent Infectious Disease Expo: No Hospitalization with Isolation: Denies Immunizations Up To Date Date of Pneumonia Vaccine: Dec 27, 2017 Date of Influenza Vaccine: Jan 28, 2018 Past Medical History PMH As described under Assessment. Family Medical History Family Medical History: He reports his father had CAD with CABG. He reports his father had emphysema and lung cnacer. Family History: 19 FATHER FH: emphysema FH: lung cancer Quadrupal cardiac bipass G8 SISTER FH: ovarian cancer G8 SISTER Neuroblastoma Allergies and Home Medications Allergies Coded Allergies: celery (Unverified Allergy, Severe, ANAPHYLAXIS, 03/29/18) clopidogrel (Verified Allergy, Mild, NAUSEA/HIVES, 03/29/18) ticagrelor (Verified Allergy, Mild, NAUSEA/HIVES, 03/29/18) Home Medications Albuterol Sulfate 1 Puff Puff, 2 PUFF IH Q4H PRN for SHORTNESS OF BREATH, (Reported) Ascorbic Acid 250 Mg Tab, 250 MG PO DAILY, (Reported) Aspirin 81 Mg Tablet.dr, 81 MG PO DAILY, (Reported) Atorvastatin Calcium 80 Mg Tablet, 80 MG PO HS, (Reported) Budesonide/Formoterol Fumarate 10.2 Gm Hfa.aer.ad, 2 PUFF IH BID, (Reported) Calcium Carbonate/Vitamin D3 1 Each Tablet, 1 TAB PO DAILY, (Reported) Carboxymethylcellulos/Glycerin 15 Ml Drops, 1 DROP OU QID, (Reported) Cholecalciferol (Vitamin D3) 25 Mcg Capsule, 25 MCG PO DAILY, (Reported) Elderberry Fruit and Flower 1 Each Capsule, 1 EACH PO DAILY, (Reported) Ketotifen Fumarate 5 Ml Drops, 1 DROP OU BID, (Reported) Krill/Om3/Dha/Epa/Om6/Lip/Astx 1 Each Capsule, 2 EACH PO HS, (Reported) Lisinopril 20 Mg Tablet, 20 MG PO DAILY, (Reported) Loratadine/Pseudoephedrine 1 Each Tab.er.24h, 1 EACH PO HS, (Reported) Magnesium Oxide 400 Mg Tablet, 400 MG PO DAILY, (Reported) Metformin HCl 500 Mg Tab.er.24h, 500 MG PO BID, (Reported) Multivitamin 1 Each Tablet, 1 TAB PO DAILY, (Reported) Omeprazole 20 Mg Capsule.dr, 20 MG PO BID, (Reported) Polyethylene Glycol 3350 17 Gm Powd.pack, 17 GM PO DAILY, (Reported) Potassium Gluconate 90 Mg Tablet, 90 MG PO HS PRN for MUSCLE CRAMPS, (Reported) Prasugrel HCl 10 Mg Tablet, 10 MG PO DAILY, (Reported) Pregabalin 150 Mg Capsule, 150 MG PO TID, (Reported) Semaglutide 0.25 Mg/0.2 Ml Pen.injctr, 0.25 MG SQ SUNDAY, (Reported) Physical Exam-Cardiology Physical Exam Vital Signs/I&O 11/11/19 11/11/19 11/11/19 7/21/20 05:00 06:00 07:00 07:00 Pulse 80 80 82 75 Resp 15 24 26 B/P (MAP) 97/73 (81) 101/77 (85) 96/59 (71) Pulse Ox 95 96 95 O2 Delivery Nasal Cannula Nasal Cannula Nasal Cannula O2 Flow Rate 2.00 2.00 2.00 11/11/19 11/11/19 11/11/19 11/11/19 07:50 08:00 08:00 08:00 Temp 36.6 Pulse 74 Resp 16 B/P (MAP) 103/70 (81) Pulse Ox 97 O2 Delivery Nasal Cannula Nasal Cannula Nasal Cannula O2 Flow Rate 2.50 2.50 2.50 11/11/19 11/11/19 11/11/19 11/11/19 08:34 09:00 10:00 11:00 Pulse 80 96 79 Resp 16 14 13 B/P (MAP) 96/71 (79) 105/70 (82) 98/66 (77) Pulse Ox 97 93 O2 Delivery Nasal Cannula Nasal Cannula Nasal Cannula Room Air O2 Flow Rate 2.50 2.50 2.50 11/11/19 11/11/19 11/11/19 11/11/19 11:12 11:39 11:40 12:00 Pulse 76 Resp 18 B/P (MAP) 98/67 (77) Pulse Ox 90 O2 Delivery Nasal Cannula Room Air Room Air Room Air O2 Flow Rate 2.00 11/11/19 11/11/19 11/11/19 11/11/19 12:57 13:00 14:00 14:33 Pulse 82 81 75 75 Resp 17 B/P (MAP) 98/66 (77) 102/65 (77) Pulse Ox 92 93 92 O2 Delivery Room Air Room Air O2 Flow Rate 2.50 11/11/19 11/11/19 11/11/19 15:00 15:09 15:10 Pulse 75 Resp 20 B/P (MAP) Pulse Ox 92 O2 Delivery Room Air Room Air Room Air Capillary Refill : Less Than 3 Seconds Constitutional: AAO x 3, well-developed, well-nourished HEENT: PERRL, hearing is well preserved, oral hygience is good Neck: No carotid bruit; carotid pulses are 2 + bilaterally Respiratory: No accessory muscle use, No respiratory distress; chest expansion is symmetric, chest is bilaterally symmetric, other (diminished lower lobes bilat; prolonged exp phase) Cardiovascular: regular rate-rhythm; No JVD; S1 and S2 Gastrointestinal: soft, round; No tenderness Extremities: no lower extremity edema bilateral Neurologic/Psychiatric: grossly intact Skin: No rash on exposed areas, No ulcerations on exposed areas Data Review Labs Laboratory Tests 11/10/19 23:26: Glucometer 131H 11/10/19 23:31: White Blood Count 10.9, Red Blood Count 5.10, Hemoglobin 14.5, Hematocrit 43, Mean Corpuscular Volume 85, Mean Corpuscular Hemoglobin 28, Mean Corpuscular Hemoglobin Concent 34, Red Cell Distribution Width 16.6H, Platelet Count 264, Mean Platelet Volume 10.5H, Neutrophils (%) (Auto) 59, Lymphocytes (%) (Auto) 29, Monocytes (%) (Auto) 8, Eosinophils (%) (Auto) 3, Basophils (%) (Auto) 1, Neutrophils # (Auto) 6.5, Lymphocytes # (Auto) 3.2, Monocytes # (Auto) 0.9, Eosinophils # (Auto) 0.3, Basophils # (Auto) 0.1, Prothrombin Time 15.0H, INR Comment 1.1, Activated Partial Thromboplast Time 25, D-Dimer 1.08H, Sodium Level 138, Potassium Level 4.7, Chloride Level 103, Carbon Dioxide Level 21, Anion Gap 14, Blood Urea Nitrogen 23H, Creatinine 1.22, Estimat Glomerular Filtration Rate 60, BUN/Creatinine Ratio 19, Glucose Level 126H, Calcium Level 9.3, Corrected Calcium 9.3, Total Bilirubin 0.3, Aspartate Amino Transf (AST/SGOT) 18, Alanine Aminotransferase (ALT/SGPT) 16, Alkaline Phosphatase 155H, Troponin I < 0.028, Total Protein 7.1, Albumin 4.0 11/11/19 03:14: White Blood Count 13.3H, Red Blood Count 4.88, Hemoglobin 13.8, Hematocrit 42, Mean Corpuscular Volume 85, Mean Corpuscular Hemoglobin 28, Mean Corpuscular Hemoglobin Concent 33, Red Cell Distribution Width 16.6H, Platelet Count 241, Mean Platelet Volume 11.2H, Neutrophils (%) (Auto) 79H, Lymphocytes (%) (Auto) 13, Monocytes (%) (Auto) 7, Eosinophils (%) (Auto) 1, Basophils (%) (Auto) 0, Neutrophils # (Auto) 10.5H, Lymphocytes # (Auto) 1.7, Monocytes # (Auto) 0.9, Eosinophils # (Auto) 0.1, Basophils # (Auto) 0.1, Sodium Level 138, Potassium Level 4.5, Chloride Level 107, Carbon Dioxide Level 19L, Anion Gap 12, Blood Urea Nitrogen 21H, Creatinine 1.04, Estimat Glomerular Filtration Rate > 60, BUN/Creatinine Ratio 20, Glucose Level 113H, Calcium Level 9.1, Triglycerides Level 196H, Cholesterol Level 121, LDL Cholesterol Direct 74, VLDL Cholesterol 39, HDL Cholesterol 28L 11/11/19 11:09: Radiology NAME: HERBERTH BOB [facility] REC#: [id number] PT STATUS: ADM Minor : 1955 PHYSICIAN: ALEJO RODRIGUEZ MD ADMIT DATE: 11/11/19/ICU Signed Date of Exam:11/10/19 CHEST 1 VIEW, AP/PA ONLY INDICATION: Whole body heaviness, difficulty speaking. EXAMINATION: Chest 11/10/2019. COMPARISON: 01/01/2018 FINDINGS: The heart is unremarkable. There is pulmonary vascular congestion. Increased markings in both lungs consistent with edema with possible developing infiltrate at the bases. Loop recorder device overlies the left chest. No pneumothorax. No effusions. Hyperdensities in the right lung apex perhaps focal clips. IMPRESSION: 1. Pulmonary edema. 2. Suspected bibasilar infiltrates. Dictated by: Dictated on workstation # [id number] Dict: 11/11/19 07 Trans: 11/11/19 0749 [id number] Interpreted by: [place] STEVENSON MD Electronically signed by: YN STEVENSON MD 11/11/19 0749 NAME: HERBERTH BOB [facility] REC#: [id number] PT STATUS: ADM Minor : 1955 PHYSICIAN: ALEJO RODRIGUEZ MD ADMIT DATE: 11/11/19/ICU Signed Date of Exam:11/10/19 CT HEAD WO-R/O STROKE PROCEDURE: CT head wo r/o stroke. TECHNIQUE: Multiple contiguous axial images were obtained through the brain without the use of intravenous contrast. Auto Exposure Controls were utilized during the CT exam to meet ALARA standards for radiation dose reduction. INDICATION: Heaviness throughout the whole body. Generalized weakness EXAMINATION: CT brain without contrast 11/10/2019 FINDINGS: Multiple axial images of the brain without contrast. There is no evidence for acute hemorrhage or infarct. There is no mass, mass effect, midline shift or hydrocephalus. The paranasal sinuses and mastoid air cells demonstrate no acute abnormality. IMPRESSION: No acute intracranial process. Findings agree with the preliminary report. Dictated by: Dictated on workstation # [id number] Dict: 11/11/1926 Trans: 11/11/19 0750 [facility] [id number] Interpreted by: NY STEVENSON MD Electronically signed by: NY STEVENSON MD 11/11/19 075 ECG Impression ECG Initial ECG Rhythm: Normal Sinus A/P-Cardiology Assessment/Admission Diagnosis Suspected TIA - management per stroke team MPI of 09/16/19 showed mild to mod basal inf ischemia, LVEF 73% Chronic, exertional shortness of breath, improved after cor stenting of Dec 2018 Coronary artery disease. Card cath of 01/07/19: 80% mid vessel stenosis of the right coronary artery, which was successfully stented with overlapping stents, which are from proximal to distal, Alpine Xience 3.5 x 12, 3.0 x 15, 3.0 x 18, 3.0 x 18. A proximal right coronary artery stent, known to be Promus 3.0 x 12, post-dilated to 3.5 mm in 2012, is patent. The rest of the coronary vessels have mild to moderate disease, including 40% stenosis in the proximal and distal right coronary. Normal global left ventricular systolic function with ejection fraction of 65 to 70%. Low normal left ventricular end-diastolic pressure TIA in Dec 2017 (hospitalized to [facility], [place], [place]). MRI of 01/01/18 is reported to have shown no acute intracranial process Palpitations. s/p ILR that has not shown significant arrhythmia AL, treated with CPAP beginning Nov 2017 Echocardiogram of 06/10/19: LVEF 55-60%. Mild dil of aortic root (4.3 cm). 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 MRA/MRI of brain, head, neck pending. Management per stroke team Continue ASA and Effient Somewhat low BP, hold anti-hypertensives for now Monitor lab closely No c/o CP at this time - advise holding off on cardiac cath for now until aforementioned issue has resolved We would like to thank medical services for this consult Clinical Quality Measures DVT/VTE Risk/Contraindication: Risk Factor Score Per Nursin RFS Level Per Nursing on Admit: 3=High Stroke: Date of last known well: Nov 10, 2019 SRIDHAR BLACK Nov 11, 2019 08:15
[2019-11-11] MEDS ORDERED: ASPIRIN 81 MG CHEW (CHILDREN'S ASA) PO SCH (09:00)
[2019-11-11] MEDS ORDERED: PRASUGREL 10 MG (EFFIENT) TABLET PO SCH (09:00)
[2019-11-11] MEDS ORDERED: ELDE1CAP PO (10:01)
[2019-11-11] MEDS ORDERED: MAGN400T39 PO (10:01)
[2019-11-11] MEDS ORDERED: KRIL1CAP PO (10:01)
[2019-11-11] MEDS ORDERED: KETO5DRO70 OU (10:01)
[2019-11-11] MEDS ORDERED: ASPI-983 PO (10:01)
[2019-11-11] MEDS ORDERED: CARB15DR2 OU (10:01)
[2019-11-11] MEDS ORDERED: C250T PO (10:01)
[2019-11-11] MEDS ORDERED: BUDE10.2 IH (10:01)
[2019-11-11] MEDS ORDERED: PRAS10TA6 PO (10:01)
[2019-11-11] MEDS ORDERED: CHOL100048 PO (10:01)
[2019-11-11] MEDS ORDERED: LORA-877 PO (10:01)
--- NOTE | 2019-11-11 10:32 | NUR ---
SPOKE WITH THE PT (HE HAD MOST OF HIS MAINTENANCE MEDS WITH HIM) AND CALLED [facility] AND [facility] TO COMPLETE THE MED REC METFORMIN ER 500MG- THE DIRECTIONS ARE 2 TABS BID- THE PT SAID HIS DR CHANGED THE DIRECTIONS BUT THE PHARMACY HAS NOT UPDATED THE SCRIPT-PT NOW TAKES 1 TAB BID OMEPRAZOLE 20MG: DIRECTIONS SHOW 2 TABS DAILY ( 30 MINUTES BEFORE MEALS) BUT PT SAID IT WORKS BETTER FOR HIM IF HE TAKES 1 TAB BID THE FOLLOWING ARE FILL DATES FROM [facility]: 07-16-2019 METFORMIN ER 500MG #360/180DS (SEE NOTE ABOVE) 10-07-2019 LISINOPRIL 20MG #90/90DS 10-07-2019 LORATADINE D #30/30DS 10-21-2019 LYRICA 150MG #90/30DS 10-30-2019 EFFIENT 10MG #90/90DS PT GETS OZEMPIC FROM THE [facility]RU [facility]- PT DID KNOW HE USES THE 0.25MG BUT DOESNT HAVE THE KNOW THE LAST TIME HE PICKED IT UP. I CALLED [facility] AND LEFT A MESSAGE WITH GILMA THE PALS COORDINATOR TO FIND OUT THE FILL DATES AND QUANTITIES, WHEN I HEAR BACK I WILL UPDATE THE MED REC AND NOTES NEEDED THE FOLLOWING ARE FILL DATES FROM THE [facility]: 08-27-2019 OMEPRAZOLE 20MG #180/90DS 09-04-2019 ALBUTEROL HFA #1 09-04-2019 SYMBICORT 160/4.5 #3/90DS 09-05-2019 ATORVASTATIN 80MG #90/90DS LORATADINE D, ZADITOR EYE DROPS AND REFRESH EYE DROPS ARE MEDICATIONS THE PT TAKES SCHEDULED DAILY OTC MEDS: VIT D VIT C MTV ELDERBERRY KRILL OIL ASPIRIN 81MG MIRALAX CALCIUM W/ VIT D MAGNESIUM POTASSIUM Addendum: 11/11/19 at 1512 by JOSSELINE SULLIVAN [facility] GILMA WITH THE PALS PROGRAM AT [facility] RETURNED MY CALL- THE LAST DATE OZEMPIC WAS FILLED THRU PALS WAS APRIL 2019 FOR #08/18DS. I SPOKE WITH THE PT AGAIN AND HE INSISTED HE HAS SOME AND THE COMPANY SENDS IT TO [facility] THEN HE PICKS IT UP FROM THE PHARMACY. PT SAID LAST TIME HE PICKED IT UP THEY GAVE HIM A YEAR SUPPLY. I CALLED [facility] BACK AND THEY WERE LOOKING INTO THIS AND WILL FOLLOW UP WITH ME IF NEEDED
[2019-11-11 12:15] LABS: BILIRUBIN,TOTAL 0.3 MG/DL (0.1-1.0)
[2019-11-11] MEDS ORDERED: NS 100 ML (IVPB) BAG IV ONE (12:30)
[2019-11-11] MEDS ORDERED: IOHEXOL 350 MG/ML 100 ML (OMNIPAQUE 350) VIAL IV ONE (12:30)
[2019-11-11] MEDS ORDERED: HOLD METFORMIN - RECEIVED CONTRAST 20 ML VIAL IV SCH (12:30)
--- NOTE | 2019-11-11 12:34 | Consultation-Cardiology ---
HPI-Cardiology Cardiology Consultation: Date of Consultation 11/11/19 Time Seen by a Provider: 09:30 Date of Admission Attending Physician Alison Vaz MD Admitting Physician Tiff[place]/Count Includes [facility] Consulting Physician DELBERT VALE MD, MA, FACP, FACC, [facility], CCDS HPI: Chief Complaint: CC: Gen weakness and transient speech impairment HPI Mr. Black is a 64 year old male admitted to ICU 6 from the ED with c/o generalized weakness, dizziness, expressive aphasia. He reports yesterday he was standing on his deck when he had a sudden onset of dizziness, nausea, weakness, difficulty speaking and SOB. No c/o CP or palpitations. Reports symptoms felt similar to TIA he had several years ago. His summoned EMS. He reports by the time EMS arrived symptoms were improving and continued to improve while in transport. He reports by the time he arrived to the hospital his symptoms had improved, but not completely resolved, but by the time he was admitted to his room symptoms had resolved and not returned. He denies any vision changes or difficulty swallowing. He denies any syncope or near syncope. He denies any CP. He denies any LE swelling. No report of fever or chills. Review of Systems-Cardiology Review of Systems Constitutional: As described under HPI; No chills, No fever Eyes: No vision change Ears/Nose/Throat: No epistaxis, No recent hearing loss Respiratory: As described under HPI Cardiovascular: As described under HPI Gastrointestinal: No constipation, No diarrhea; nausea; No vomiting Genitourinary: No dysuria, No hematuria Musculoskeletal: joint pain Skin: No rash on exposed areas, No ulcerations on exposed areas Psychiatric/Neurological: As described under HPI Hematologic: No bleeding abnormalities IPH-[id number]-Bqxify Hx Patient Social History Alcohol Use: Denies Use Recreational Drug Use: Yes Smoking Status: Current Everyday Smoker Type Used: Cigarettes Recent Foreign Travel: No Recent Infectious Disease Expo: No Hospitalization with Isolation: Denies Immunizations Up To Date Date of Pneumonia Vaccine: Dec 27, 2017 Date of Influenza Vaccine: Jan 28, 2018 Past Medical History PMH As described under Assessment. Family Medical History Family Medical History: He reports his father had CAD with CABG. He reports his father had emphysema and lung cnacer. Family History: FH: emphysema 19 FATHER FH: lung cancer 19 FATHER FH: ovarian cancer G8 SISTER Neuroblastoma G8 SISTER Quadrupal cardiac bipass 19 FATHER Allergies and Home Medications Allergies Coded Allergies: celery (Unverified Allergy, Severe, ANAPHYLAXIS, 03/29/18) clopidogrel (Verified Allergy, Mild, NAUSEA/HIVES, 03/29/18) ticagrelor (Verified Allergy, Mild, NAUSEA/HIVES, 03/29/18) Home Medications Albuterol Sulfate 1 Puff Puff, 2 PUFF IH Q4H PRN for SHORTNESS OF BREATH, (Reported) Ascorbic Acid 250 Mg Tab, 250 MG PO DAILY, (Reported) Aspirin 81 Mg Tablet.dr, 81 MG PO DAILY, (Reported) Atorvastatin Calcium 80 Mg Tablet, 80 MG PO HS, (Reported) Budesonide/Formoterol Fumarate 10.2 Gm Hfa.aer.ad, 2 PUFF IH BID, (Reported) Calcium Carbonate/Vitamin D3 1 Each Tablet, 1 TAB PO DAILY, (Reported) Carboxymethylcellulos/Glycerin 15 Ml Drops, 1 DROP OU QID, (Reported) Cholecalciferol (Vitamin D3) 25 Mcg Capsule, 25 MCG PO DAILY, (Reported) Elderberry Fruit and Flower 1 Each Capsule, 1 EACH PO DAILY, (Reported) Ketotifen Fumarate 5 Ml Drops, 1 DROP OU BID, (Reported) Krill/Om3/Dha/Epa/Om6/Lip/Astx 1 Each Capsule, 2 EACH PO HS, (Reported) Lisinopril 20 Mg Tablet, 20 MG PO DAILY, (Reported) Loratadine/Pseudoephedrine 1 Each Tab.er.24h, 1 EACH PO HS, (Reported) Magnesium Oxide 400 Mg Tablet, 400 MG PO DAILY, (Reported) Metformin HCl 500 Mg Tab.er.24h, 500 MG PO BID, (Reported) Multivitamin 1 Each Tablet, 1 TAB PO DAILY, (Reported) Omeprazole 20 Mg Capsule.dr, 20 MG PO BID, (Reported) Polyethylene Glycol 3350 17 Gm Powd.pack, 17 GM PO DAILY, (Reported) Potassium Gluconate 90 Mg Tablet, 90 MG PO HS PRN for MUSCLE CRAMPS, (Reported) Prasugrel HCl 10 Mg Tablet, 10 MG PO DAILY, (Reported) Pregabalin 150 Mg Capsule, 150 MG PO TID, (Reported) Semaglutide 0.25 Mg/0.2 Ml Pen.injctr, 0.25 MG SQ SUNDAY, (Reported) Patient Home Medication List Home Medication List Reviewed: Yes Physical Exam-Cardiology Physical Exam Vital Signs/I&O 11/11/19 11/11/19 11/11/19 11/11/19 02:26 02:47 02:49 03:00 Temp 36.4 36.5 Pulse 89 91 90 85 Resp 16 16 11 B/P (MAP) 108/79 (81) 110/77 (88) 101/76 (84) Pulse Ox 96 98 94 O2 Delivery Nasal Cannula Nasal Cannula Nasal Cannula O2 Flow Rate 2.00 2.00 2.00 11/11/19 11/11/19 11/11/19 11/11/19 03:09 03:15 03:30 03:45 Pulse 89 85 83 Resp 17 20 19 B/P (MAP) 93/65 (74) 106/75 (85) 100/77 (85) Pulse Ox 95 92 93 O2 Delivery Nasal Cannula Nasal Cannula Nasal Cannula Nasal Cannula O2 Flow Rate 2.00 2.00 2.00 2.00 11/11/19 11/11/19 11/11/19 11/11/19 04:00 05:00 06:00 07:00 Pulse 81 80 80 82 Resp 16 15 24 B/P (MAP) 92/70 (77) 97/73 (81) 101/77 (85) Pulse Ox 92 95 96 O2 Delivery Nasal Cannula Nasal Cannula Nasal Cannula O2 Flow Rate 2.00 2.00 2.00 11/11/19 11/11/19 11/11/19 11/11/19 07:00 07:50 08:00 08:00 Pulse 75 74 Resp 26 16 B/P (MAP) 96/59 (71) 103/70 (81) Pulse Ox 95 97 O2 Delivery Nasal Cannula Nasal Cannula Nasal Cannula Nasal Cannula O2 Flow Rate 2.00 2.50 2.50 2.50 11/11/19 11/11/19 11/11/19 11/11/19 08:00 08:34 09:00 10:00 Temp 36.6 Pulse 80 96 Resp 16 14 B/P (MAP) 96/71 (79) 105/70 (82) Pulse Ox 97 93 O2 Delivery Nasal Cannula Nasal Cannula Nasal Cannula O2 Flow Rate 2.50 2.50 2.50 11/11/19 11/11/19 11/11/19 11/11/19 11:00 11:12 11:39 11:40 Pulse 79 Resp 13 B/P (MAP) 98/66 (77) O2 Delivery Room Air Nasal Cannula Room Air Room Air O2 Flow Rate 2.00 11/11/19 12:00 Pulse 76 Resp 18 B/P (MAP) 98/67 (77) Pulse Ox 90 O2 Delivery Room Air Capillary Refill : Less Than 3 Seconds Constitutional: AAO x 3, well-developed, well-nourished HEENT: PERRL, hearing is well preserved, oral hygience is good Neck: No carotid bruit; carotid pulses are 2 + bilaterally Respiratory: No accessory muscle use, No respiratory distress; chest expansion is symmetric, chest is bilaterally symmetric, other (good bilat air entry, somewhat diminished at the bases) Cardiovascular: regular rate-rhythm; No JVD; S1 and S2 Gastrointestinal: soft, round; No tenderness Extremities: no lower extremity edema bilateral Neurologic/Psychiatric: oriented x 3, other (moves all limbs equally) Skin: No rash on exposed areas, No ulcerations on exposed areas Data Review Labs Laboratory Tests 11/10/19 23:26: Glucometer 131H 11/10/19 23:31: White Blood Count 10.9, Red Blood Count 5.10, Hemoglobin 14.5, Hematocrit 43, Mean Corpuscular Volume 85, Mean Corpuscular Hemoglobin 28, Mean Corpuscular Hemoglobin Concent 34, Red Cell Distribution Width 16.6H, Platelet Count 264, Mean Platelet Volume 10.5H, Neutrophils (%) (Auto) 59, Lymphocytes (%) (Auto) 29, Monocytes (%) (Auto) 8, Eosinophils (%) (Auto) 3, Basophils (%) (Auto) 1, Neutrophils # (Auto) 6.5, Lymphocytes # (Auto) 3.2, Monocytes # (Auto) 0.9, Eosinophils # (Auto) 0.3, Basophils # (Auto) 0.1, Prothrombin Time 15.0H, INR Comment 1.1, Activated Partial Thromboplast Time 25, D-Dimer 1.08H, Sodium Level 138, Potassium Level 4.7, Chloride Level 103, Carbon Dioxide Level 21, Anion Gap 14, Blood Urea Nitrogen 23H, Creatinine 1.22, Estimat Glomerular Filtration Rate 60, BUN/Creatinine Ratio 19, Glucose Level 126H, Calcium Level 9.3, Corrected Calcium 9.3, Total Bilirubin 0.3, Aspartate Amino Transf (AST/SGOT) 18, Alanine Aminotransferase (ALT/SGPT) 16, Alkaline Phosphatase 155H, Troponin I < 0.028, Total Protein 7.1, Albumin 4.0 11/11/19 03:14: White Blood Count 13.3H, Red Blood Count 4.88, Hemoglobin 13.8, Hematocrit 42, Mean Corpuscular Volume 85, Mean Corpuscular Hemoglobin 28, Mean Corpuscular Hemoglobin Concent 33, Red Cell Distribution Width 16.6H, Platelet Count 241, Mean Platelet Volume 11.2H, Neutrophils (%) (Auto) 79H, Lymphocytes (%) (Auto) 13, Monocytes (%) (Auto) 7, Eosinophils (%) (Auto) 1, Basophils (%) (Auto) 0, Neutrophils # (Auto) 10.5H, Lymphocytes # (Auto) 1.7, Monocytes # (Auto) 0.9, Eosinophils # (Auto) 0.1, Basophils # (Auto) 0.1, Sodium Level 138, Potassium Level 4.5, Chloride Level 107, Carbon Dioxide Level 19L, Anion Gap 12, Blood Urea Nitrogen 21H, Creatinine 1.04, Estimat Glomerular Filtration Rate > 60, BUN/Creatinine Ratio 20, Glucose Level 113H, Calcium Level 9.1, Triglycerides Level 196H, Cholesterol Level 121, LDL Cholesterol Direct 74, VLDL Cholesterol 39, HDL Cholesterol 28L 11/11/19 11:00: A/P-Cardiology Assessment/Admission Diagnosis Suspected TIA - management per Medical Svce and the Stroke Team No clinical or lab evidence of acute cor syndrome or clinical evidence of decompensated CHF (despite a reportedly abnormal CXR that showed some failure/edema) MPI of 09/16/19 showed mild to mod basal inf ischemia, LVEF 73% Chronic, exertional shortness of breath, improved after cor stenting of Dec 2018 Coronary artery disease. Card cath of 01/07/19: 80% mid vessel stenosis of the right coronary artery, which was successfully stented with overlapping stents, which are from proximal to distal, Alpine Xience 3.5 x 12, 3.0 x 15, 3.0 x 18, 3.0 x 18. A proximal right coronary artery stent, known to be Promus 3.0 x 12, post-dilated to 3.5 mm in 2012, is patent. The rest of the coronary vessels have mild to moderate disease, including 40% stenosis in the proximal and distal right coronary. Normal global left ventricular systolic function with ejection fraction of 65 to 70%. Low normal left ventricular end-diastolic pressure TIA in Dec 2017 (hospitalized to [facility], [place], [place]). MRI of 01/01/18 is reported to have shown no acute intracranial process Palpitations. s/p ILR that has not shown significant arrhythmia AL, treated with CPAP beginning Nov 2017 Echocardiogram of 06/10/19: LVEF 55-60%. Mild dil of aortic root (4.3 cm). 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) followed by Dr Lam in [place], [place] Intolerance to Plavix and Brilinta, but has been able to take Effient Quit tobacco use in Apr 2016, resumed, quit in Mar 2018 Fam h/o early CAD (father) H/O GERD and PUD - reports has had recent scope Discussion and Recomendations He has multiple comorbidities that are outlined above Continue ASA and Effient We discussed his CV issues with Dr Vaz who is his attending during this admission Given that there are no acute cardiac issues at this time, we recommend postponing his elective cardiac cath (given that he has presented with symptoms of stroke/TIA) We would like to thank the Medical services for this consult Clinical Quality Measures DVT/VTE Risk/Contraindication: Risk Factor Score Per Nursin RFS Level Per Nursing on Admit: 3=High Stroke: Date of last known well: Nov 10, 2019 DELBERT VALE MD FACP FACC CCDS Nov 11, 2019 12:34
--- NOTE | 2019-11-11 13:23 | Diagnostic Imaging Report ---
PROCEDURE: CT angiography of the head and CT angiography of the neck with and without contrast. TECHNIQUE: Contiguous noncontrast images were obtained from the skull base through the vertex. After intravenous contrast administration, helical CT angiography of the neck was performed. Source data was reformatted into 3D MIP projections. Delayed post contrast acquisition was also obtained. Auto Exposure Controls were utilized during the CT exam to meet ALARA standards for radiation dose reduction. INDICATION: Concern for TIA. Body heaviness. Difficulty speaking. COMPARISON: CT head on 11/10/2019. FINDINGS: CTA Neck: The visualized portions of the aortic arch demonstrate no evidence of aneurysm or dissection. There is conventional branching pattern of the great vessels of the aorta. The brachiocephalic artery is normal in course and caliber. The right and left common carotid origins are unremarkable. The origin of the left subclavian artery is patent. The common carotid arteries and internal carotid arteries demonstrate a tortuous course. There is minimal atherosclerotic plaque in the bilateral carotid bulbs and proximal internal carotid arteries without flow-limiting stenosis. No evidence of dissection in the carotid systems. The external carotid arteries are patent and unremarkable. The vertebral arteries are codominant. The origin of the right vertebral artery is seen and is unremarkable. The origin of the left vertebral artery is seen and is unremarkable. There is no focal stenosis seen within the neck. There is no dissection. The vertebral arteries are well visualized to up to the level of the basilar artery. The osseous structures of the cervical spine demonstrate multilevel degenerative changes without acute fracture or dislocation. Included views through the lung apices demonstrate centrilobular emphysema. Hazy opacities are noted in the left upper lobe. CTA brain: Atherosclerotic plaque is seen in the [place] of the bilateral terminal internal carotid arteries without significant stenosis. No stenosis is seen in the bilateral anterior, middle, and posterior cerebral arteries. 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 No evidence of aneurysm the [place]. In the posterior circulation, both of the vertebral arteries demonstrate normal opacification. The vertebral arteries are codominant. Both the right and left PICA arteries are identified. The basilar artery is normal in course and caliber. The terminal branch vessels including the superior cerebellar arteries unremarkable. CT head: No large acute territorial ischemia, mass, or hemorrhage. No midline shift or mass effect. The ventricles, cortical sulci, and basilar cisterns are patent and unremarkable. The calvarium is intact. The visualized paranasal sinuses are clear. IMPRESSION: 1. No stenosis or aneurysm in the [place]. No evidence of large vessel occlusion. 2. No stenosis or dissection the bilateral carotid and vertebral arteries. 3. No large acute territorial ischemia, mass, or hemorrhage. 4. Centrilobular emphysema in the lung apices. Hazy opacities in the left upper lobe may represent air trapping. Dictated by: Dictated on workstation # [id number]
--- NOTE | 2019-11-11 14:49 | NUR ---
PT PLACED ON RA FOR 60 MINUTES. PT WALKED A TOTAL OF 500 FEET.AFTER 1 MINUTE OF EXERTION PT DESATURATED TO 86% WITH A HR 85, BP 110/65. AFTER BEING PLACED ON 2L OF OXYGEN SATURATION INCREASED TO 93% AFTER 3 MINUTES. Addendum: 11/11/19 at 1449 by AMY ESCALONA RT Amended: Links added.
--- NOTE | 2019-11-11 15:42 | NUR ---
REPORT GIVEN TO SHELDON DANIELLE WHO ASSUMES CARE OF PT FOR REMAINDER OF SHIFT.
[2019-11-11] MEDS ORDERED: RT-ALBUTEROL SULF 2.5 MG/3 ML PRE-MIX VIAL IH PRN (16:00)
--- NOTE | 2019-11-11 16:30 | NUR ---
CM/SS: Visit with pt as to plan for discharge and his needing oxygen. [facility]. Plan: Pt to be [facility] Summary: [facility]. Pt uses [employer]. Pt is wanting to go home today. He utilizes the [place] for his oxygen. [facility] is contacted about the oxygen [phone]. Made aware of the request. J[facility]e is faxed the information. [facility] bottom hoop [facility] can not be at the hospital until 7:00pm to 8:00pm. with the oxygen. RN is notified of the time of arrival for the oxygen. Once delivered pt can go home. Pt continues to be eager to go home. RN is educated on the need for pt to stay here to get portable prior to going home. RN will relay the information to pt.
--- NOTE | 2019-11-11 16:50 | Short Stay Summary ---
Discharge Summary Hospital Course Final Diagnosis: TIA Hospital Course Date of Admission: Nov 11, 2019 at 01:51 Admission Diagnosis : Family Physician/Provider: Robert Hinojosa Date of Discharge: 11/11/19 Discharge Diagnosis: TIA COVID PUI Hypoxia with exertion Hospital Course: 64 yo male admitted after an episode of suddenly feeling diffusely weak and heavy and having speech difficulty. He has history of TIA in past. His symptoms resolved spontaneously and his CT of his head on ER arrival was okay. Originally it was planned for him to have cardiac cath on 11/10, so CTA was not done in ER given the resolved symptoms and plan for contrast use the next day. Cardiology consulted and deferred cath for now so as not to confuse picture with the pos sibility of ubaldo-catheterization stroke or TIA concern, so CTA was done during admit which did not show any significant occlusion. MRI was not done as it was decided to test patient for COVID due to new oxygen need, TIA and elevated D dimer and MRI would not change current plan, so could be deferred to outpatient after COVID results known. Pt did not need oxygen at rest but did require 2 lpm with exercise. Old records did indicate previous use of prn oxygen, but he stated he did not have oxygen at this time, although he did admit diagnosis of COPD and inhaler use. He was discharged with 2 lpm for activity and COVID pending, all neuro symptoms resolved, continued on aspirin, prasugrel, statin and blood pressure medications. Labs and Pending Lab Test: Laboratory Tests 11/10/19 23:26: Glucometer 131H 11/10/19 23:31: White Blood Count 10.9, Red Blood Count 5.10, Hemoglobin 14.5, Hematocrit 43, Mean Corpuscular Volume 85, Mean Corpuscular Hemoglobin 28, Mean Corpuscular Hemoglobin Concent 34, Red Cell Distribution Width 16.6H, Platelet Count 264, Mean Platelet Volume 10.5H, Neutrophils (%) (Auto) 59, Lymphocytes (%) (Auto) 29, Monocytes (%) (Auto) 8, Eosinophils (%) (Auto) 3, Basophils (%) (Auto) 1, Neutrophils # (Auto) 6.5, Lymphocytes # (Auto) 3.2, Monocytes # (Auto) 0.9, Eosinophils # (Auto) 0.3, Basophils # (Auto) 0.1, Prothrombin Time 15.0H, INR Comment 1.1, Activated Partial Thromboplast Time 25, D-Dimer 1.08H, Sodium Level 138, Potassium Level 4.7, Chloride Level 103, Carbon Dioxide Level 21, Anion Gap 14, Blood Urea Nitrogen 23H, Creatinine 1.22, Estimat Glomerular Filtration Rate 60, BUN/Creatinine Ratio 19, Glucose Level 126H, Calcium Level 9.3, Corrected Calcium 9.3, Total Bilirubin 0.3, Aspartate Amino Transf (AST/SGOT) 18, Alanine Aminotransferase (ALT/SGPT) 16, Alkaline Phosphatase 155H, Troponin I < 0.028, Total Protein 7.1, Albumin 4.0 11/11/19 03:14: White Blood Count 13.3H, Red Blood Count 4.88, Hemoglobin 13.8, Hematocrit 42, Mean Corpuscular Volume 85, Mean Corpuscular Hemoglobin 28, Mean Corpuscular Hemoglobin Concent 33, Red Cell Distribution Width 16.6H, Platelet Count 241, Mean Platelet Volume 11.2H, Neutrophils (%) (Auto) 79H, Lymphocytes (%) (Auto) 13, Monocytes (%) (Auto) 7, Eosinophils (%) (Auto) 1, Basophils (%) (Auto) 0, Neutrophils # (Auto) 10.5H, Lymphocytes # (Auto) 1.7, Monocytes # (Auto) 0.9, Eosinophils # (Auto) 0.1, Basophils # (Auto) 0.1, Sodium Level 138, Potassium Level 4.5, Chloride Level 107, Carbon Dioxide Level 19L, Anion Gap 12, Blood Urea Nitrogen 21H, Creatinine 1.04, Estimat Glomerular Filtration Rate > 60, BUN/Creatinine Ratio 20, Glucose Level 113H, Calcium Level 9.1, Triglycerides Level 196H, Cholesterol Level 121, LDL Cholesterol Direct 74, VLDL Cholesterol 39, HDL Cholesterol 28L 11/11/19 11:09: Coronavirus (COVID-19)(PCR) [Pending] Home Meds Active Reported Black Elderberry 575 mg Cap (Elderberry Fruit and Flower) 1 Each Capsule 1 Each PO DAILY Magnesium (Magnesium Oxide) 400 Mg Tablet 400 Mg PO DAILY Vitamin C (Ascorbic Acid) 250 Mg Tab 250 Mg PO DAILY Vitamin D3 (Cholecalciferol (Vitamin D3)) 25 Mcg Capsule 25 Mcg PO DAILY Symbicort 160-4.5 Mcg Inhaler (Budesonide/Formoterol Fumarate) 10.2 Gm Hfa.aer.ad 2 Puff IH BID Refresh Optive Eye Drops (Carboxymethylcellulos/Glycerin) 15 Ml Drops 1 Drop OU QID Aspirin EC (Aspirin) 81 Mg Tablet.dr 81 Mg PO DAILY Effient (Prasugrel HCl) 10 Mg Tablet 10 Mg PO DAILY Claritin-D 24 Hour Tablet (Loratadine/Pseudoephedrine) 1 Each Tab.er.24h 1 Each PO HS Krill Oil 1,000 mg Softgel (Krill/Om3/Dha/Epa/Om6/Lip/Astx) 1 Each Capsule 2 Each PO HS Zaditor (Ketotifen Fumarate) 5 Ml Drops 1 Drop OU BID Ozempic (Semaglutide) 0.25 Mg/0.2 Ml Pen.injctr 0.25 Mg SQ SUNDAY Miralax (Polyethylene Glycol 3350) 17 Gm Powd.pack 17 Gm PO DAILY Lisinopril 20 Mg Tablet 20 Mg PO DAILY Multi-Vitamin Daily (Multivitamin) 1 Each Tablet 1 Tab PO DAILY Metformin HCl ER (Metformin HCl) 500 Mg Tab.er.24h 500 Mg PO BID Lyrica (Pregabalin) 150 Mg Capsule 150 Mg PO TID Calcium 500 + Vit D Caplet (Calcium Carbonate/Vitamin D3) 1 Each Tablet 1 Tab PO DAILY Proair Hfa (Albuterol Sulfate) 1 Puff Puff 2 Puff IH Q4H PRN Omeprazole 20 Mg Capsule.dr 20 Mg PO BID Potassium Gluconate 90 Mg Tablet 90 Mg PO HS PRN Atorvastatin Calcium 80 Mg Tablet 80 Mg PO HS Assessment/Pt Instructions Follow up with Dr. Serna as directed. Follow up with Reji Hinojosa APRN on 11/13 at 2:20 pm. You need to be on home isolation until notified by health department of your COVID results. If you develop shortness of breath, fever or other concerning symptoms, you should come to the ER. If possible, call ahead to notify them if you do not yet have COVID results. Discharge Instructions Discharge Diet: ADA Diet Activity as Tolerated: Yes Consultations Cardiology Discharge Physical Examination General Appearance: Alert, Oriented X3, No Acute Distress HEENT: PERRLA, EOMI Respiratory: Clear to Auscultation, Normal Air Movement Cardiovascular: Regular Rate, No Murmurs Abdominal: Normal Bowel Sounds, Soft Extremities: No Edema Neuro: Normal Speech, Strength at 5/5 X4 Ext, Cranial Nerves 3-12 NL (except for decreased hearing bilaterally- baseline, wears hearing aids), Other (normal finger to nose testing) Psych/Mental Status: Mental Status NL, Mood NL Allergies: Coded Allergies: celery (Unverified Allergy, Severe, ANAPHYLAXIS, 03/29/18) clopidogrel (Verified Allergy, Mild, NAUSEA/HIVES, 03/29/18) ticagrelor (Verified Allergy, Mild, NAUSEA/HIVES, 03/29/18) Copy Copies To 1: Reji Hinojosa APRN Discharge Summary Date of Admission Nov 11, 2019 at 01:51 Date of Discharge November 11, 2019 Discharge Date: Nov 11, 2019 Clinical Quality Measures DVT/VTE Risk/Contraindication: Risk Factor Score Per Nursin RFS Level Per Nursing on Admit: 3=High Stroke: Date of last known well: Nov 10, 2019 SRAVAN LOVE MD Nov 11, 2019 16:48
[2019-11-11] MEDS ORDERED: PANTOPRAZOLE 20 MG TABLET (PROTONIX) PO SCH (21:00)
[2019-11-11] MEDS ORDERED: PREGABALIN 150 MG (LYRICA) CAPSULE PO SCH (21:00)
[2019-11-11] MEDS ORDERED: ADVAIR HFA 115/21 MCG INHALER 8 GM IH SCH (21:00)
[2019-11-12] MEDS ORDERED: ASPIRIN E.C. 81 MG (ECOTRIN) TAB PO SCH (09:00)
[2019-11-12] MEDS ORDERED: lisINopril 20 MG (PRINIVIL) TABLET PO SCH (09:00)
[2019-11-12] MEDS ORDERED: polyethylene glycoL POWDER 17 GM (MIRALAX) PACK PO SCH (09:00)
== END 2019-11-11 16:42 | disposition home or self-care (01) ==
LOC: EDUNIT# 23:03 → ER 23:05 → ICU 23:06 → UNDOADMOB 11-11 01:51 → UNDODISOB 11-11 19:17
PROVIDERS: ADMIT Family Medicine; ATTEND Family Medicine
DX: G45.9 Transient cerebral ischemic attack, unspecified (principal); Z20.828 Contact with and (suspected) exposure to other viral communicable diseases; R47.01 Aphasia; R09.02 Hypoxemia; I10 Essential (primary) hypertension; I25.10 Atherosclerotic heart disease of native coronary artery without angina pectoris; R00.2 Palpitations; G47.33 Obstructive sleep apnea (adult) (pediatric); E11.9 Type 2 diabetes mellitus without complications; E78.00 Pure hypercholesterolemia, unspecified; J43.9 Emphysema, unspecified; M54.9 Dorsalgia, unspecified; F32.9 Major depressive disorder, single episode, unspecified; Z79.84 Long term (current) use of oral hypoglycemic drugs; K21.9 Gastro-esophageal reflux disease without esophagitis; Z88.8 Allergy status to other drugs, medicaments and biological substances; Z79.899 Other long term (current) drug therapy; Z79.82 Long term (current) use of aspirin; Z82.49 Family history of ischemic heart disease and other diseases of the circulatory system; Z91.018 Allergy to other foods; Z95.5 Presence of coronary angioplasty implant and graft; Z87.19 Personal history of other diseases of the digestive system; Z85.118 Personal history of other malignant neoplasm of bronchus and lung; Z87.891 Personal history of nicotine dependence; Z92.21 Personal history of antineoplastic chemotherapy
CPT/HCPCS: 70450; 70496; 70498; 71045; 80048; 80053; 80061; 81000; 82962; 84484; 85025 ×2; 85379; 85610; 85730; 93005; 93041; 94761; 96360; 99284; G0378; U0002; 36415; 87635

== ENCOUNTER 2019-12-02 06:52 | Day surgery (SDC) | payer OTHER ==
[2019-12-02] VITALS (19 sets, daily range): BP systolic 77–106; BP diastolic 53–80
[~2019-12-02] VITALS: Ht 180 cm; Wt 95.0 kg
[~2019-12-02 06:52] MED LIST changes: +ASCO250T16 PO; +BUDE10.2 IH; +CARB15DR2 OU; +CHOL100048 PO; +ELDE1CAP PO; +KETO5DRO70 OU; +KRIL1CAP PO; +LORA-877 PO; +MAGN400T39 PO
[2019-12-02] MEDS ORDERED: HEParin (CATH LAB) 2,000 ML IV ONE (06:56)
[2019-12-02] MEDS ORDERED: NS IV 1000 ML 1,000 ML ONE (06:56)
[2019-12-02] MEDS ORDERED: LIDOCAINE 1% INJ 20 ML 20 ML VIAL ONE (06:56)
[2019-12-02] MEDS ORDERED: NS IV 1000 ML 1,000 ML IV SCH (07:00)
[2019-12-02 07:25] LABS: HEMOGLOBIN 15.1 G/DL (13.3-17.7); RED CELL DISTRIBUTION WIDTH 16.1 % (10.0-14.5); WHITE BLOOD COUNT 9.5 10^3/uL (4.3-11.0)
--- OUTSIDE RECORDS SUMMARY | 2019-12-02 07:29 | XMS REPORT | Encounter Summary ---
Author Author Department [facility] HERBERTH kline Organization Department of [facility] Address [address] [place] [address] Phone Unavailable Care Team Providers Care Statistical Financial Analyst Name Role Phone ADRIEL HERNANDEZ PCP Unavailable Insurance Providers: All historical and current No Data Provided for This Section Selected Encounter This section includes the information on record at [place] for the Encounter. Date/Time Encounter Type Encounter Description Reason Provider Source Aug 07, 2019 10:40 AM Outpatient Encounter GASTROENTEROLOGY [facility] 15 IHE Encounter Template Text [...] 07, 2019 09:15 AM AMBULATORY - NONE [facility] T, [facility] 15 Dec 31, 2019 11:00 AM AMBULATORY - NONE ARTUR BLAS [facility] Dec 31, 2019 01:15 PM AMBULATORY - MEDICINE ARTUR BLAS [facility] Dec 31, 2019 01:16 PM AMBULATORY - MEDICINE ARTUR BLAS [facility] Jan 01, 2020 09:00 AM AMBULATORY - MEDICINE ARTUR BLAS [facility] Jan 07, 2020 12:00 PM AMBULATORY - MEDICINE [facility] Jan 27, 2020 01:00 PM AMBULATORY - MEDICINE [facility] Surgical Procedures: All associated to the [...] error. Some allergies/ADRs may be reported in [facility] Immunization section. Allergen Event Date Event Type Reaction(s) Severity Source [place] September 08, 2014 Propensity to adverse reactions to drug (diso rder) [facility] 15 PLAVIX September 08, 2014 Propensity to adverse reactions to drug (dis[facility]der[facility] Medications: [facility] dispensed (-15 months) and Non-VA Documented (Obtained Outside V A) Section Date Range: 1) prescriptions processed by a VA pharmacy in the last 15 m [facility], and 2) all medications recorded in [...] available).Discontinued = A prescription stopped by a [place] provider. It is no longer available to be filled. = A prescription which is too old to fill. This does not refer to the expiration date of the medication in the container. Non-VA = A medication that came from someplace other than a VA pharmacy. This may be a prescription from either the [place] or other providers that was filled outside the [place]. Or, it may be an over the [...] TEST BLOOD GLUCOSE 50 Dec 19, 2019 [id number] September 04, 2019 PAMELA RAMSEY CBGUILLERMO ACCU-CHEK CHARLES PLUS (GLUCOSE) TEST STRIP Discontinued USE 1 STRIP FOR TESTING TWO TIMES PER WEEK - DIRECTED TO TEST BLOOD GLUCOSE 50 Jul 25, 2019 [id number] Nov 12, 2018 [facility]AMELA RAMSEY [facility] ALBUTEROL SO4 90MCG/ACTUAT (CFC-F) INHL,ORAL,6.7GM Active INHALE 2 PUFFS BY ORAL INHALATION EVERY 4 HOURS NEEDED FOR BREATHING. SHAKE WELL. RINSE MOUTHPIECE FREQUENTLY TO PREVENT CLOGGING. USE NEEDED FOR SHORTNESS OF AIR/WHEEZING FOR BREATHING. SHAKE WELL. RINSE MOUTHPIECE FREQUENTLY TO PREVENT CLOGGING. USE NEEDED FOR SHORTNESS OF AIR/WHEEZING Dec 19, 2019 [id number] September 04, 2019 [facility]ELA RAMSEY [facility] ALCOHOL PREP PAD Active USE 1 PAD ON SKIN BIW TO CLEAN AND DISINFECT THE SKIN 200 Sep 29, 2020 [id number] Sep 30, 2019 MAURICIO RANKIN [facility] ALCOHOL PREP PAD Discontinued USE 1 PAD ON SKIN BI W TO CLEAN AND DISINFECT THE SKIN 200 Dec 19, 2019 [id number] Jun 06, 2019 PAMELA RAMSEY ALCOHOL PREP PAD Discontinued USE 1 PAD ON SKIN BI W TO CLEAN AND DISINFECT THE SKIN 200 Jul 25, 2019 [id number] Nov 12, 2018 PAMELA RAMSEY ASCORBIC ACID 250MG TAB Non-VA TAKE ONE TABLET BY MOUTH ONCE A DAY Non-VA Documented by: SHANIQUA SCHMIDT nted at: [facility] ASPIRIN 25MG/DIPYRIDAMOLE 200MG CAP,SA Active T CHAPIN 1 CAPSULE BY MOUTH TWO TIMES A DAY - SWALLOW WHOLE. DO NOT CRUSH OR CHEW. FOR RECURRENT TIA/STROKE 180 Dec 19, 2019 [id number] Dec 20, 2018 PAMELA RAMSEY ASPIRIN 25MG/DIPYRIDAMOLE 200MG CAP,SA Discontinued T CHAPIN 1 CAPSULE BY MOUTH TWO TIMES A DAY - SWALLOW WHOLE. DO NOT CRUSH OR CHEW. FOR RECURRENT TIA/STROKE 180 Feb 06, 2019 [id number] Sep 28, 2018 [facility]ACH[facility] ASPIRIN 81MG TAB,EC Non- VA TAKE ONE TABLET BY MOUTH ONCE A DAY Non-VA Documented by: PADMA LONG nted at: [facility] ATORVASTATIN CA 80MG TAB Active TAKE ONE TABLET BY MOUTH AT BEDTIME FOR CHOLESTEROL - REPORT ANY UNEXPLAINED MUSCLE PAIN/WEAKNESS TO YOUR PROVIDER 90 Dec 19, 2019 [id number] September 04, 2019 PAMELA RAMSEY ATORVASTATIN CA 80MG TAB Discontinued TAKE ONE TABLET BY MOUTH AT BEDTIME FOR CHOLESTEROL - REPORT ANY UNEXPLAINED MUSCLE PAIN/WEAKNESS TO YOUR PROVIDER 90 Dec 20, 2018 [id number] Nov 12, 2018 PAMELA RAMSEY BUDESONIDE 160MCG/FORMOTEROL FUM 4.5MCG/SPRAY INHL,ORAL,10.2 GM Active INHALE 2 PUFFS BY MOUTH TWO TIMES A DAY FOR BREATHING. SHAKE WELL. RINSE MOUTH AND SPIT AFTER EACH USE. 3 Apr 24, 2020 [id number] August 22, 2019 LISSA OATES [facility] CALCIUM/VITAMIN D TAB No n-VA TAKE BY MOUTH ONCE A DAY Non-V A Documented by: PADMA LONG nted at: [facility] CARBOXYMETHYLCELLULOSE NA 0.5% SOLN,OPH Active INSTILL ONE DROP IN BOTH EYES FOUR TIMES A DAY FOR DRY EYES 15 Feb 01, 2020 [id number] September 03 0 [facility] DICLOFENAC NA 1% GEL,TOP Discontinued APPLY 2 GRAMS A FFECTED AREA TWO TIMES A DAY NEEDED FOR PAIN AND INFLAMMATION. DO NOT EXCEED 16GM DAILY TO ANY AFFECTED JOINT OF LOWER EXTREMITIES. DO NOT EXCEED 8GM DAILY TO ANY AFFECTED JOINT OF UPPER EXTREMITES. DO NOT EXCEED TOTAL DOSE OF 32GM DAILY FOR ALL JOINTS. 100 Oct 31, 2018 [id number] Oct 06, 2018 ANAYELI KIRKPATRICK ARTUR BLAS [facility] DICLOFENAC NA 1% GEL,TOP APPLY 2 GRAMS A FFECTED AREA TWO TIMES A DAY NEEDED FOR PAIN AND INFLAMMATION. DO NOT EXCEED 16GM DAILY TO ANY AFFECTED JOINT OF LOWER EXTREMITIES. DO NOT EXCEED 8GM DAILY TO ANY AFFECTED JOINT OF UPPER EXTREMITES. DO NOT EXCEED TOTAL DOSE OF 32GM DAILY FOR ALL JOINTS. 100 Jan 17, 2019 [id number] Dec 20, 2018 PAMELA RAMSEY FLUTICASONE PROPIONATE 50MCG/SPRAY SOLN,NASAL,16GM Active INSTILL 1 SPRAY IN EACH NOSTRIL ONCE A DAY SHAKE GENTLY BEFORE USE! - MUST BE USED DIRECTED FOR 3 WEEKS TO PROVIDE BENEFIT. * NO EARLY REFILLS * 1UNIT = 30DAYS AT 4 PF/DAY OR 60DAYS AT 2PF/DAY 2 Dec 19, 2019 [id number] August 26, 2019 PAMELA RAMSEY KETOTIFEN 0.025% SOLN,OPH Active INSTILL 1 DROP IN BOTH EYES TWO TIMES A DAY FOR RELIEF OF ALLERGY SYMPTOMS IN EYE(S) 10 Feb 01, 2020 [id number] September 04, 2019 [facility] LANCET,SOFTCLIX Active USE LANCET BIW FOR TESTING BL OOD GLUCOSE DIRECTED Sep 29, 2020 [id number] Sep 30, 2019 MAURICIO RANKIN LANCET,SOFTCLIX Discontinued USE LANCET BIW FO R TESTING BLOOD GLUCOSE DIRECTED Dec 19, 2019 [id number] Jun 06, 2019 PAMELA RAMSEY LANCET,SOFTCLIX Discontinued USE LANCET BIW FO R TESTING BLOOD GLUCOSE DIRECTED Jul 25, 2019 [id number] Nov 12, 2018 PAMELA RAMSEY LISINOPRIL 40MG TAB Non- VA TAKE ONE-HALF TABLET BY MOUTH EVERY MORNING Non-VA Documented by: PAMELA RAMSEY nted at: [facility] LORATADINE/PSEUDOEPHEDRINE TAB,SA Non-VA TAKE BY MOUTH No n-VA Documented by: JUAN LANGume nted at: ARTUR BLAS [facility] MAGNESIUM OXIDE 400MG TAB Non-VA TAKE ONE TABLET BY MOUTH ONCE A DAY Non-VA Documented by: SHANIQUA SCHMIDT nted at: [facility] METFORMIN HCL 500MG TAB Non-VA TAKE ONE TABLET BY MOUTH TWO TIMES A DAY WITH BREAKFAST AND EVENING MEAL Non-VA Documented by: SHANIQUA SCHMIDT nted at: [facility] MULTIVITAMINS CAP/TAB No n-VA TAKE 1 CAP/TAB BY MOUTH ONCE A DAY Non-VA Documented by: SHANIQUA SCHMIDT nted at: [facility] OMEPRAZOLE 20MG CAP,EC Active TAKE 2 CAPSULES B Y MOUTH BEFORE BREAKFAST 30 MINUTES BEFORE EATING TO LOWER STOMACH ACID (REPLACES ACIPHEX) 180 Dec 19, 2019 [id number] August 26, 2019 PAMELA RAMSEY POLYETHYLENE GLYCOL 3350 PWDR,ORAL Non-VA TAKE 1 CAPFUL (17GM) BY MOUTH ONCE A DAY Non-VA Documented by: SHANIQUA SCHMIDT nted at: [facility] POTASSIUM GLUCONATE TAB Non-VA TAKE 90 MG BY MOUTH ONCE A DAY N on-VA Documented by: SHANIQUA SCHMIDT nted at: [facility] PRASUGREL HCL 10MG TAB N on-VA TAKE ONE TABLET BY MOUTH ONCE A DAY Non-VA Documented by: KATHERINE MATTume nted at: [facility] PREGABALIN 150MG CAP,ORAL Non-VA TAKE 1 CAPSULE BY MOUTH TWO TIMES A DAY Non-VA Docume nted by: PAMELA RAMSEY nted at: [facility] SEMAGLUTIDE INJ,SOLN Non -VA INJECT SUBCUTANEOUSLY EVERY WEEK Non-VA Documented by: ANAYELI KIRKPATRICK Docume nted at: ARTUR BLAS [facility] TERBINAFINE HCL 1% CREAM,TOP Active APPLY LIGHT LY TO AFFECTED AREA TWO TIMES A DAY FOR INFECTION 90 Sep 23, 2020 [id number] Sep 24, 2019 [facility] HERNANDEZ [facility] UREA 20% CREAM,TOP Active APPLY LIGHTLY (20%) TO AFFECTED AREA TWO TIMES A DAY NEEDED TO PROMOTE HEALING,RUB IN UNTIL COMPLETELY ABSORBED*FOR TOPICAL USE ONLY* APPLY TO BOTH FEET DIRECTED. 90 Sep 25, 2020 [id number] Sep 26, 2019 ADRIEL HERNANDEZ [facility] Problems [...] Alcohol intake above recommended sensible limits Active 315534297 [facility] Allergic conjunctivitis Active 695728021 [facility] Bilateral senile combined form cataracts of eyes Active 42791622571 9108 [facility] Bilateral tinnitus Active 4214777845710 [facility] Coronary arteriosclerosis Active 94991808 September 08, 2014 Entered By: PADMA LONG Comment: hx of ptca to RCA several yrs. agoSeptember 08, 2014 Entered By: PADMA LONG Comment: heart cath 09/01/14, neg. / previous stent to RCA,, via abida meneses [place] HATCHER, JENNEY R [facility] Diabetes mellitus Active 56075697 [facility]AMELA RAMSEY [facility] Disorder of pancreas Active 0017244 September 08, 2014 Entered By: PADMA LONG Comment: 2.5cm low density lseion in bodyMay 2014 Entered By: PADMA LONG Comment: question of communication with pancreatic ductMay 2014 Entered By: PADMA LONG Comment: favored to be cystic pancreatic cancerSeptember 08, 2014 Entered By: PADMA LONG Comment: per abdominal CT 09/01/14, via abida meneses [place] [facility] Dry eyes Active 768404065 [facility] Gastro-esophageal reflux disease without esophagitis ( SNOMED CT 322144473) Active 823933526 [facility] History of malignant neoplasm of lung Active 219476123 [facility] Hyperlipidemia (SNOMED CT 83709507) Active 37126255 [facility] Lung mass Active 177110132 September 08, 2014 E ntered By: PADMA LONG Comment: 4.5 cm mass, post. segment right upper lobe.September 08, 2014 Entered By: PADMA LONG Comment: mild adenopathy in mediastinum and bilat. [email or web address] Entered By: PADMA LONG Comment: most likely related to lung cancerMa2014 Entered By: PADMA LONG Comment: per ct angio of chest with contrast 09/01/14,[place], [place] 2014 Entered By: PADMA LONG Comment: per path report- mod. differentiated bronchogenic adenoca. 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 Active 92828615 [facility] Obesity Active 208998382 [facility] Obstructive sleep apnea syndrome (SNOMED CT 14273059) Active 416277 015 [facility] Pancreatic cyst Active 13230218 [facility] Papilloma of right eyelid Active 928151822265633 [facility] Polyp of colon Active 67497192 Jan 23 16 Entered By: PADMA LONG Comment: c-scope 01/17/16, multiple benign colonic polypsJun 28, 2017 Entered By: PADMA LONG Comment: c-scope,[facility]25/17,[facility], three benign polyps- sigmoid colon, transverse colon,cecum. see path report cprs [facility]. [facility] Pulmonary emphysema Active 75684185 0 [facility] Sensorineural hearing loss, bilateral Active 481593876 [facility] Snoring Active 11042199 [facility] Type 2 diabetes mellitus without complication Active 728003376 [facility] Environmental Allergies (ICD-9-CM 477.9) Inactive 477.9 Dec 18, 2017 [facility] External hemorrhoids without mention of complication (ICD-9- CM 455.3) Inactive 455.3 Dec 18, 2017 [facility] Impotence of organic origin (ICD-9-CM 607.84) Inactive 607.84 Dec 18, 2017 [facility] Screening for Lipoid disorders (ICD-9-CM V77.91) Inactive V77.91 Jan 18, 2007 [facility] Stye * (ICD-9-CM 373.11) Inactive 373.11 Dec 18, 201 8 Jan 18, 2007 Entered By: PADMA LONG Comment: bilat lower lids, chronic/recurrent [facility] Tobacco Use Disorder, Continuous Inactive 305.1 Dec 18, 2017 Jan 18, 2007 Entered By: PADMA LONG Comment: one ppd [facility]AD[facility] LONG [facility] Radiology Reports: +/- 30 days of the encounter No Data Provided for This Section Pathology Reports: +/- 30 days of the encounter No Data Provided for This Section Encounter Notes: All associated encounter notes No Data Provided for This Section
--- OUTSIDE RECORDS SUMMARY | 2019-12-02 07:29 | XMS REPORT | Continuity of Care Document ---
Author Author [facility] Organization [facility] Address Unknown Phone Unavailable Care Team Providers Care Traveling Repair Accountant Name Role Phone [facility] Unavailable Unavailable Problems Combined list of all problems from all Department of Defense and [facility] facilities. It does not include entries that were removed or entered in error. Problem Status Onset Date Problem Type Date of Resolution Comments Source Alcohol intake above recommended sensible limits Active Condition [facility] Allergic conjunctivitis Active Condition ARTUR Luda Mcgowan [facility] Bilateral senile combined form cataracts of eyes Active Condition ARTUR Shu [facility] Bilateral tinnitus Active Condition ROSLYN Luda Mcgowan [facility] Coronary arteriosclerosis Active Condition September 08, 2014 Entered By: PADMA LONG Comment: hx of ptca to RCA several yrs. ago September 08, 2014 Entered By: PADMA LONG Comment: heart cath 09/01/14, neg. 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 September 08, 2014 Entered By: PADMA LONG Comment: per abdominal CT 09/01/14, [place] [facility] [place] [facility] Dry eyes Active Condition [facility] Gastro-esophageal reflux disease without esophagitis (SNOMED CT 947502055) Active Condition [facility] History of malignant neoplasm of lung Active Condition [facility] Hyperlipidemia (SNOMED CT 47416589) Active Condition [facility] Lung mass Active Condition September 08, 2014 [...] angio of chest with contrast 09/01/14,[place] Sep 23, 2014 Entered By: PADMA LONG Comment: per path report- mod. differentiated bronchogenic adenoca. [facility] Neoplasm of uncertain behavior of skin of eyelid Active Condition [facility] Obesity Active Condition [facility] Obstructive sleep apnea syndrome (SNOMED CT 83424653) Active Condition [facility] Pancreatic cyst Active Condition [facility] Papilloma of right eyelid Active Condition [facility] Polyp of colon Active Condition Jan 24, 2016 Entered By: PADMA LONG Comment: c-scope 01/17/16, multiple benign colonic polyps Jun 28, 2017 Entered By: PADMA LONG Comment: c-scope,06/25/17,[facility], three benign polyps- sigmoid colon, transverse colon,cecum. see path report cprs [facility] Pulmonary emphysema Active Condition [facility] Sensorineural hearing loss, bilateral Active Condition [facility] Snoring Active Condition [facility] Type 2 diabetes mellitus without complication Active Condition [facility] Environmental Allergies (ICD-9-CM 477.9) Inactive Condition 8 [facility] External hemorrhoids without mention of complication (ICD-9-CM 455.3) Inactive Condition 12/18/2017 [facility] Impotence of organic origin (ICD-9-CM 607.84) Inactive Condition 8 [facility] Screening for Lipoid disorders (ICD-9-CM V77.91) Inactive Condition 7 [facility] Stye * (ICD-9-CM 373.11) Inactive Condition 12/18/2017 Jan 18, 2007 Entered By: PADMA LONG Comment: bilat lower lids, chr onic/recurrent [facility] Tobacco Use Disorder, Continuous I nactive Condition Jan 18, 2007 Entered By: PADMA LONG Comment: one ppd [facility] ICD-10-CM Z71.89 Other specified general counselor ing with Provider Comments: Other specified counseling active Diagnosis [facility] ICD-10-CM G47.33 Obstructive sleep apnea (adult) (pediatric) with Provider Comments: Obstructive Sleep Apnea (Adult) (Pediatric) active Diagnosis [facility] ICD-10-CM Z85.118 Personal history of ma lignant neoplasm of bronchus and lung with Provider Comments: History of malignant neoplasm of lung ([facility] [id number]) active Diagnosis [facility] ICD-10-CM R09.02 Hypoxemia with Provider Comments: Hypoxemia active Diagnosis [facility] ICD-10-CM B35.1 Tinea unguium with Provi clotilde Comments: Tinea Unguium active Diagnosis [facility] ICD-10-CM Q45.[address] with Provider Comments: Pancreatic cyst (SCT [id number]) active Diagnosis [facility] ICD-10-CM Z71.3 Dietary counseling and s urveillance with Provider Comments: Dietary counseling and surveillance active Diagnosis [facility] ICD-10-CM D23.112 Other benign neoplasm skin/ right lower eyelid, inc canthus with Provider Comments: Other benign neoplasm of skin of right lower eyelid, including canthus active Diagnosis [facility] ICD-10-CM D48.5 Neoplasm of uncertain be havior of skin with Provider Comments: Neoplasm of uncertain behavior of skin of eyelid (SCT [id number]) active Diagnosis [facility] ICD-10-CM R73.09 Other abnormal glucose with Provider Comments: Abnormal Glucose active Diagnosis [facility] ICD-10-CM G47.33 Obstructive sleep apnea (adult) (pediatric) with Provider Comments: Obstructive sleep apnea (adult) (pediatric) active Diagnosis [facility] ICD-10-CM G47.33 Obstructive sleep apnea (adult) (pediatric) with Provider Comments: Obstructive sleep apnea syndrome (SNOMED CT 81298264) active Diagnosis [facility] ICD-10-CM Z71.89 Other specified general counselor ing with Provider Comments: Other specified Counseling active Diagnosis [facility] ICD-10-CM D48.5 Neoplasm of uncertain be havior of skin with Provider Comments: Neoplasm of uncertain behavior of skin of eyelid (SNOMED CT 10061645) active Diagnosis [facility] ICD-10-CM M51.36 Other intervertebral di sc degeneration, lumbar region with Provider Comments: Other Intervertebral Disc Degeneration, Lumbar Region active Diagnosis [facility] ICD-10-CM E11.9 Type 2 diabetes mellitus without complications with Provider Comments: Type 2 diabetes mellitus without complication (SNOMED CT 515910369) active Diagnosis [facility] ICD-10-CM R68.89 Other general symptoms and signs with Provider Comments: General Symptoms & Signs active Diagnosis [facility] ICD-10-CM K21.9 Gastro-esophageal reflux disease without esophagitis with Provider Comments: Gastro-esophageal reflux disease without esophagitis (SCT [id number]) active Diagnosis [facility] ICD-10-CM I25.10 Athscl heart disease of [place] coronary artery w/o ang pctrs with Provider Comments: Atherosclerotic Heart Disease of [place] Coronary Artery without Angina Pectoris active Diagnosis [facility] ICD-10-CM I25.10 Athscl heart disease of [place] coronary artery w/o ang pctrs with Provider Comments: Athscl Hrt Disease w/o Ang Pctrs active Diagnosis [facility] ICD-10-CM M54.5 Low back pain with Provi clotilde Comments: Low Back Pain active Diagnosis [facility] ICD-10-CM Z86.73 Prsnl hx of TIA (TIA), and cereb infrc w/o resid deficits with Provider Comments: Personal History of Transient Ischemic Attack (Tia), and Cerebral Infarction without Residual Deficits active Diagnosis [facility] ICD-10-CM I25.10 Athscl heart disease of [place] coronary artery w/o ang pctrs with Provider Comments: Coronary arteriosclerosis (SCT [id number]) active Diagnosis [facility] ICD-10-CM K22.719 Castellanos's esophagus wi th dysplasia, unspecified with Provider Comments: Castellanos's Esophagus with Dysplasia, unspecified active Diagnosis [facility] ICD-10-CM 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 with Provider Comments: Malignant neoplasm of pancreatic duct active Diagnosis [facility]uan [facility] ICD-10-CM R94.8 Abnormal results of func tion studies of organs and systems with Provider Comments: Abnormal Results of Function Studies of Organs/Systems active Diagnosis [facility] ICD-10-CM K86.2 Cyst of pancreas with Pr ovider Comments: Cyst of pancreas active Diagnosis [facility] [place] [facility] ICD-10-CM M25.561 Pain in right knee wit h Provider Comments: Pain in right Knee active Diagnosis [facility] ICD-10-CM Z86.73 Prsnl hx of TIA (TIA), and cereb infrc w/o resid deficits with Provider Comments: Personal Hx of TIA/Cerebral Inf w/o Resid Deficits active Diagnosis [facility]uan [facility] ICD-10-CM H90.3 Sensorineural hearing lo ss, bilateral with Provider Comments: Sensorineural hearing loss, bilateral (SCT [id number]) active Diagnosis ARTUR LudaJuan M [facility] Medications Combined list of all outpatient medications [...] DIRECTED TO TEST BLOOD GLUCOSE ACTIVE 12/19/2019 [id number] 09/04/2019 PAMELA RAMSEY 01/31/2019 [facility] ACCU-CHEK CHARLES PLUS (GLUCOSE) TEST STRIP USE 1 STRIP FOR TESTING TWO TIMES PER WEEK - DIRECTED TO TEST BLOOD GLUCOSE DISCONTINUE 07/25/2019 [id number] 11/12/2018 PAMELA RAMSEY 07/25/2018 [facility] ALBUTEROL SO4 90MCG/ACTUAT (CFC-F) INHL,ORAL,6.7GM INHALE 2 PUFFS BY ORAL INHALATION EVERY 4 HOURS NEEDED FOR BREATHING. SHAKE WELL. RINSE MOUTHPIECE FREQUENTLY TO PREVENT CLOGGING. USE NEEDED FOR SHORTNESS OF AIR/WHEEZING FOR BREATHING. SHAKE WELL. RINSE MOUTHPIECE FREQUENTLY TO PREVENT CLOGGING. USE NEEDED FOR SHORTNESS OF AIR/WHEEZING ACTIVE 12/19/2019 [id number] 09/04/2019 PAMELA RAMSEY 12/20/2018 [facility] ALCOHOL PREP PAD USE 1 PAD ON SKIN BIW TO CLEAN AND DISINFECT THE SKIN ACTIVE 09/29/2020 [id number] 09/30/2019 MAURICIO RANKIN 09/30/2019 [facility] ALCOHOL PREP PAD USE 1 PAD ON SKIN BIW TO CLEAN AND DISINFECT THE SKIN DISCONTINUE 12/19/2019 [id number] 06/06/2019 PAMELA RAMSEY 01/31/2019 [facility] ALCOHOL PREP PAD USE 1 PAD ON SKIN BIW TO CLEAN AND DISINFECT THE SKIN DISCONTINUE 07/25/2019 [id number] 11/12/2018 PAMELA RAMSEY 07/25/2018 [facility] ASCORBIC ACID 250MG TAB TAKE O NE TABLET BY MOUTH ONCE A DAY ACTIVE SHANIQUA SCHMIDT 11/12/2019 [facility] ASPIRIN 25MG/DIPYRIDAMOLE 200MG CAP,SA TAKE 1 CAPSULE BY MOUTH TWO TIMES A DAY - SWALLOW WHOLE. DO NOT CRUSH OR CHEW. FOR RECURRENT TIA/STROKE ACTIVE 12/19/2019 [id number] 12/20/2018 PAMELA RAMSEY 12/20/2018 [facility] ASPIRIN 25MG/DIPYRIDAMOLE 200MG CAP,SA TAKE 1 CAPSULE BY MOUTH TWO TIMES A DAY - SWALLOW WHOLE. DO NOT CRUSH OR CHEW. FOR RECURRENT TIA/STROKE DISCONTINUE 02/06/2019 [id number] 09/28/2018 ZACHARY GRECO 03/06/2018 ARTUR BLAS [facility] ASPIRIN 81MG TAB,EC TAKE ONE T ABLET BY MOUTH ONCE A DAY ACTIVE PADMA LONG 09/08/2014 [facility] ATORVASTATIN CA 80MG TAB TAKE ONE TABLET BY MOUTH AT BEDTIME FOR CHOLESTEROL - REPORT ANY UNEXPLAINED MUSCLE PAIN/WEAKNESS TO YOUR PROVIDER ACTIVE 12/19/2019 [id number] 09/04/2019 PAMELA RAMSEY 01/31/2019 [facility] ATORVASTATIN CA 80MG TAB TAKE ONE TABLET BY MOUTH AT BEDTIME FOR CHOLESTEROL - REPORT ANY UNEXPLAINED MUSCLE PAIN/WEAKNESS TO YOUR PROVIDER DISCONTINUE 12/20/2018 [id number] 11/12/2018 PAMELA RAMSEY 12/19/2017 [facility] BUDESONIDE 160MCG/FORMOTEROL FUM 4.5MCG/ SPRAY INHL,ORAL,10.2GM INHALE 2 PUFFS BY MOUTH TWO TIMES A DAY FOR BREATHING. SHAKE WELL. RINSE MOUTH AND SPIT AFTER EACH USE. ACTIVE 04/24/2020 [id number] 08/22/2019 LISSA OATES 04/28/2019 [facility] CALCIUM/VITAMIN D TAB TAKE BY MOUTH ONCE A DAY ACTIVE PADMA LONG 09/08/2014 [facility] CARBOXYMETHYLCELLULOSE NA 0.5% SOLN,OPH INSTILL ONE DROP IN BOTH EYES FOUR TIMES A DAY FOR DRY EYES ACTIVE 01/21 [id number] 09/04/2019 NEDA SHAW 01/31/2019 [facility] DICLOFENAC NA 1% GEL,TOP APPLY 2 GRAMS AFFECTED AREA TWO TIMES A DAY NEEDED FOR PAIN AND INFLAMMATION. DO NOT EXCEED 16GM DAILY TO ANY AFFECTED JOINT OF LOWER EXTREMITIES. DO NOT EXCEED 8GM DAILY TO ANY AFFECTED JOINT OF UPPER EXTREMITES. DO NOT EXCEED TOTAL DOSE OF 32GM DAILY FOR ALL JOINTS. DISCONTINUE 10/31/2018 [id number] 10/06/2018 ANAYELI KIRKPATRICK 10/06/2018 [facility] DICLOFENAC NA 1% GEL,TOP APPLY 2 GRAMS AFFECTED AREA TWO TIMES A DAY NEEDED FOR PAIN AND INFLAMMATION. DO NOT EXCEED 16GM DAILY TO ANY AFFECTED JOINT OF LOWER EXTREMITIES. DO NOT EXCEED 8GM DAILY TO ANY AFFECTED JOINT OF UPPER EXTREMITES. DO NOT EXCEED TOTAL DOSE OF 32GM DAILY FOR ALL JOINTS. 01/17/2019 [id number] 12/20/2018 PAMELA RAMSEY 12/20/2018 [facility] FLUTICASONE PROPIONATE 50MCG/SPRAY SOLN,NASAL,16GM INSTILL 1 SPRAY IN EACH NOSTRIL ONCE A DAY SHAKE GENTLY BEFORE USE! - MUST BE USED DIRECTED FOR 3 WEEKS TO PROVIDE BENEFIT. * NO EARLY REFILLS * 1UNIT = 30DAYS AT 4 PF/DAY OR 60DAYS AT 2PF/DAY ACTIVE 11/22 [id number] 08/26/2019 PAMELA RAMSEY 12/20/2018 [facility] KETOTIFEN 0.025% SOLN,OPH INST ILL 1 DROP IN BOTH EYES TWO TIMES A DAY FOR RELIEF OF ALLERGY SYMPTOMS IN EYE(S) ACTIVE 02/01/2020 [id number] 09/04/2019 NEDA SHAW 01/31/2019 [facility] LANCET,SOFTCLIX USE LANCET BIW FOR TESTING BLOOD GLUCOSE DIRECTED ACTIVE 09/29/2020 [id number] 09/30/2019 MAURICIO RANKIN 09/30/2019 [facility] LANCET,SOFTCLIX USE LANCET BIW FOR TESTING BLOOD GLUCOSE DIRECTED DISCONTINU E 12/19/2019 [id number] 06/06/2019 PAMELA RAMSEY 01/31/2019 [facility] LANCET,SOFTCLIX USE LANCET BIW FOR TESTING BLOOD GLUCOSE DIRECTED DISCONTINU E 07/25/2019 [id number] 11/12/2018 PAMELA RAMSEY 07/25/2018 [facility] LISINOPRIL 40MG TAB TAKE ONE-H CUSTODIAL TABLET BY MOUTH EVERY MORNING ACTIVE PAMELA RAMSEY 12/18/2018 [facility] LORATADINE/PSEUDOEPHEDRINE TAB,SA TAKE BY MOUTH ACTIVE JUAN LANG 08/07/2019 ARTUR BLAS [facility] MAGNESIUM OXIDE 400MG TAB TAKE ONE TABLET BY MOUTH ONCE A DAY ACTIVE SHANIQUA SCHMIDT 11/12/2019 [facility] METFORMIN HCL 500MG TAB TAKE O NE TABLET BY MOUTH TWO TIMES A DAY WITH BREAKFAST AND EVENING MEAL ACTIVE ALISON SCHMIDT 11/12/2019 [facility] MULTIVITAMINS CAP/TAB TAKE 1 C AP/TAB BY MOUTH ONCE A DAY ACTIVE SHANIQUA SCHMIDT 11/12/2019 [facility] OMEPRAZOLE 20MG CAP,EC TAKE 2 CAPSULES BY MOUTH BEFORE BREAKFAST 30 MINUTES BEFORE EATING TO LOWER STOMACH ACID (REPLACES ACIPHEX) ACTIVE 12/19/2019 [id number] 08/26/2019 PAMELA RAMSEY 12/20/2018 [facility] POLYETHYLENE GLYCOL 3350 PWDR,ORAL TAKE 1 CAPFUL (17GM) BY MOUTH ONCE A DAY ACTIVE SHANIQUA SCHMIDT 11/12/2019 [facility] POTASSIUM GLUCONATE TAB TAKE 9 0 MG BY MOUTH ONCE A DAY ACTIVE SHANIQUA SCHMIDT 11/12/2019 [facility] PRASUGREL HCL 10MG TAB TAKE ON E TABLET BY MOUTH ONCE A DAY ACTIVE KATHERINE MATT 03/11/2019 [facility] PREGABALIN 150MG CAP,ORAL TAKE 1 CAPSULE BY MOUTH TWO TIMES A DAY ACTIVE PAMELA RAMSEY 12/18/2017 [facility] SEMAGLUTIDE INJ,SOLN INJECT S UBCUTANEOUSLY EVERY WEEK ACTIVE ANAYELI KIRKPATRICK 10/01/2018 ARTUR BLAS [facility] TERBINAFINE HCL 1% CREAM,TOP A PPLY LIGHTLY TO AFFECTED AREA TWO TIMES A DAY FOR INFECTION ACTIVE 06/2020 [id number] 09/24/2019 ADRIEL HERNANDEZ 09/24/2019 [facility] UREA 20% CREAM,TOP APPLY LIGHT LY (20%) TO AFFECTED AREA TWO TIMES A DAY NEEDED TO PROMOTE HEALING,RUB IN UNTIL COMPLETELY ABSORBED*FOR TOPICAL USE ONLY* APPLY TO BOTH FEET DIRECTED. ACTIVE 09/25/2020 [id number] 09/26/2019 ADRIEL HERNANDEZ 09/26/2019 [facility] Allergies, Adverse Reactions, Alerts Combined list of all allergies from all Department of Defense and [facility] facilities. It does not include entries that were removed or entered in error. Substance Category R eaction Severity Reaction type Status Date Reported Comments Source [place] Propensity to adverse codie ctions to drug (disorder) Propensity to adverse reactions to drug (disorder) active 09/08/2014 [facility], VISN 15 [place] Propensity to adverse react ions to drug (disorder) Propensity to adve rse reactions to drug (disorder) active 09/08/2014 [facility], SN 15 Immunizations Combined list of: 1) all immunizations on record at all [facility] ies, and 2) all available immunizations on record at Department of Defense (Do D) facilities. Some immunizations on record at [facility] may not be included. 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 Administere d by: [facility] Clinician (NPI=Not Provided). Partner Lot#: [id number] Mfr: [employer] [facility] INFLUENZA, INJECTABLE, QUADRIVALENT, PRESERVATIVE FREE 01/15/2018 150 completed Partner: [facility]. Administere d by: [facility] Clinician (NPI=Not Provided). Partner Lot#: [id number] Mfr: [employer] [facility] INFLUENZA, UNSPECIFIED FORMULATION 12/22/2017 88 completed [facility], VISN 15 PNEUMOCOCCAL POLYSACCHARIDE PPV23 12/18/2017 33 completed [facility] INFLUENZA, UNSPECIFIED FORMULATION 04/26/2017 88 completed [facility] INFLUENZA, INJECTABLE, MDCK, PRESERVATIV E FREE, QUADRIVALENT 03/23/2017 171 complet ed Partner: [facility]. Administered by: Emilia schaeffer Clinician (NPI=Not Provided). Partner Lot#: [id number] Mfr: [facility] TDAP 2016 115 completed [facility] INFLUENZA, UNSPECIFIED FORMULATION 02/05/2016 88 completed [facility], VISN 15 INFLUENZA, UNSPECIFIED FORMULATION 02/21/2015 88 completed [facility], VISN 15 PNEUMOCOCCAL CONJUGATE PCV 13 09/08/2014 133 completed [facility] INFLUENZA, UNSPECIFIED FORMULATION 01/24/2014 88 completed [facility], VISN 15 TD(ADULT) UNSPECIFIED FORMULATION 10/05/2005 139 completed [facility] TETANUS TOXOID, UNSPECIFIED FORMULATION 10/05/2005 112 completed [facility] Results Combined list of recent chemistry, hematology and other laboratory results going back no more than 15 months from the Department of Defense and Veterans Affairs facilities. Order Name Results Value Reference Range Date Interpretation Specimen Comments Source CBC & DIFF LEUKOCYTES [#/VOLUM E] IN BLOOD BY AUTOMATED COUNT 9.2 K/cmm 3.60 - 11.20 09/23/2019 Specimen Type: BLOOD No comment entered. [facility] CBC & DIFF ERYTHROCYTES [#/VOL UME] IN BLOOD BY AUTOMATED COUNT 5.45 M/ul 4.1 - 5.7 09/23/2019 Specimen Type: BLOOD No comment entered. [facility] CBC & DIFF HEMOGLOBIN [MASS/VOLUME] IN BLOOD 15.1 g/dl 13.1 - 16.8 09/23/2019 Specimen T ype: BLOOD No comment entered. [facility] CBC & DIFF HEMATOCRIT [VOLUME FRACTION] OF [...] [facility] CBC & DIFF IMMATURE GRANULOCYT ES/100 LEUKOCYTES IN BLOOD BY AUTOMATED COUNT 0.3 % 09/23/2019 Specimen Type: BLOOD No comment entered. [facility] COMPREHENSIVE METABOLIC PANEL CREATININE [MASS/VOLUME] IN SERUM OR PLASMA 1.00 mg/dL 0.7 - 1.3 09/23/2019 Specimen Type: PLASMA Comment: For eGFR: eGFR results >60 are imprecise. Many variables affect the calculated result. Interpretation of eGFR results >60 must be monitored over time. [facility] COMPREHENSIVE METABOLIC PANEL UREA NITROGEN [MASS/VOLUME] IN SERUM OR PLASMA 17 mg/dL 9 - 25 09/23/2019 Specimen Type: PLASMA Comment: For eGFR: eGFR results >60 are imprecise. Many variables affect the calculated result. Interpretation of eGFR results >60 must be monitored over time. [facility] COMPREHENSIVE METABOLIC PANEL GLUCOSE [MASS/VOLUME] IN SERUM OR PLASMA 98 mg/dL 72 - 99 09/23/2019 Specimen Type: PLASMA Comment: For eGFR: eGFR results >60 are imprecise. Many variables affect the calculated result. Interpretation of eGFR results >60 must be monitored over time. [facility] COMPREHENSIVE METABOLIC PANEL SODIUM [MOLES/VOLUME] IN SERUM OR PLASMA 138 mEq/L 136 - 145 09/23/2019 Specimen Type: PLASMA Comment: For eGFR: eGFR results >60 are imprecise. Many variables affect the calculated result. Interpretation of eGFR results >60 must be monitored over time. [facility] COMPREHENSIVE METABOLIC PANEL POTASSIUM [MOLES/VOLUME] IN SERUM OR PLASMA 4.5 mEq/L 3.5 - 5.0 09/23/2019 Specimen Type: PLASMA Comment: For eGFR: eGFR results >60 are imprecise. Many variables affect the calculated result. Interpretation of eGFR results >60 must be monitored over time. [facility] COMPREHENSIVE METABOLIC PANEL CALCIUM [MASS/VOLUME] IN SERUM OR PLASMA 9.4 mg/dL 8.4 - 10.4 09/23/2019 Specimen Type: PLASMA Comment: For eGFR: eGFR results >60 are imprecise. Many variables affect the calculated result. Interpretation of eGFR results >60 must be monitored over time. [facility] COMPREHENSIVE METABOLIC PANEL PROTEIN [MASS/VOLUME] IN SERUM OR PLASMA 7.3 g/dL 6.0 - 8.6 09/23/2019 Specimen Type: PLASMA Comment: For eGFR: eGFR results >60 are imprecise. Many variables affect the calculated result. Interpretation of eGFR results >60 must be monitored over time. [facility] COMPREHENSIVE METABOLIC PANEL ALBUMIN [MASS/VOLUME] IN SERUM OR PLASMA 4.1 g/dl 3.4 - 5.0 09/23/2019 Specimen Type: PLASMA Comment: For eGFR: eGFR results >60 are imprecise. Many variables affect the calculated result. Interpretation of eGFR results >60 must be monitored over time. [facility] COMPREHENSIVE METABOLIC PANEL BILIRUBIN.TOTAL [MASS/VOLUME] IN SERUM OR PLASMA 0.3 mg/dL 0.2 - 1.2 09/23/2019 Specimen Type: PLASMA Comment: For eGFR: eGFR results >60 are imprecise. Many variables affect the calculated result. Interpretation of eGFR results >60 must be monitored over time. [facility] COMPREHENSIVE METABOLIC PANEL ASPARTATE AMINOTRANSFERASE [ENZYMATIC ACTIVITY/VOLUME] IN SERUM OR PLASMA 19 U/L 5 - 34 09/23/2019 Specimen Type: PLASMA Comment: For eGFR: eGFR results >60 are imprecise. Many variables affect the calculated result. Interpretation of eGFR results >60 must be monitored over time. [facility] COMPREHENSIVE METABOLIC PANEL ALANINE AMINOTRANSFERASE [ENZYMATIC ACTIVITY/VOLUME] IN SERUM OR PLASMA 16 U/L 8 - 40 09/23/2019 Specimen Type: PLASMA Comment: For eGFR: eGFR results >60 are imprecise. Many variables affect the calculated result. Interpretation of eGFR results >60 must be monitored over time. [facility] COMPREHENSIVE METABOLIC PANEL ANION GAP IN SERUM OR PLASMA 8.9 2019 Specimen T ype: PLASMA Comment: For eGFR: eGFR results >60 are imprecise. Many variables affect the calculated result. Interpretation of eGFR results >60 must be monitored over time. [facility] COMPREHENSIVE METABOLIC PANEL CHLORIDE [MOLES/VOLUME] IN SERUM OR PLASMA 104 mEq/L 98 - 107 09/23/2019 Specimen Type: PLASMA Comment: For eGFR: eGFR results >60 are imprecise. Many variables affect the calculated result. Interpretation of eGFR results >60 must be monitored over time. [facility] COMPREHENSIVE METABOLIC PANEL "CARBON DIOXIDE, TOTAL [MOLES/VOLUME] IN SERUM OR PLASMA" 25.1 mEq/L 22 - 31 09/23/2019 Specimen Type: PLASMA Comment: For eGFR: eGFR results >60 are imprecise. Many variables affect the calculated result. Interpretation of eGFR results >60 must be monitored over time. [facility] COMPREHENSIVE METABOLIC PANEL ALKALINE PHOSPHATASE [ENZYMATIC ACTIVITY/VOLUME] IN SERUM OR PLASMA 154 U/L 40 - 150 09/23/2019 H Specimen Type: PLASMA Comment: For eGFR: eGFR results >60 are imprecise. Many variables affect the calculated result. Interpretation of eGFR results >60 must be monitored over time. [facility] COMPREHENSIVE METABOLIC PANEL GLOMERULAR FILTRATION RATE/1.73 SQ M.PREDICTED [VOLUME RATE/AREA] IN SERUM OR PLASMA BY CREATININE- BASED FORMULA (MDRD) >60 09/23/2019 Specimen Type: PLASMA Comment: For eGFR: eGFR results >60 are imprecise. Many variables affect the calculated result. Interpretation of eGFR results >60 must be monitored over time. [facility] HEMOGLOBIN A1C HEMOGLOBIN A1C/ HEMOGLOBIN.TOTAL IN BLOOD BY HPLC 6.7 % 4.0 - 6.0 09/23/2019 H Specimen Type: BLOOD No comment entered. [facility] LIPID PROFILE(HDL,TRIG,CHOL,LDL) CHOLESTEROL [MASS/VOLUME] IN SERUM OR PLASMA 137 mg/dL 0 - 200 09/23/2019 Specimen Type: PLASMA Comment: For eGFR: eGFR results >60 are imprecise. Many variables affect the calculated result. Interpretation of eGFR results >60 must be monitored over time. [facility] LIPID PROFILE(HDL,TRIG,CHOL,LDL) TRIGLYCERIDE [MASS/VOLUME] IN SERUM [...] must be monitored over time. [facility] MICROALBUMIN ([place]) RANDOM URINE MICROALBUMIN [MASS/VOLUME] IN URINE < 5ug/mL 09/23/2019 Specimen Type: URINE Comment: Microalbumin is below the linearity of the instrument, unable to calculate the albumin/creatinine ratio. [facility] MICROALBUMIN ([place]) RANDOM URINE MICROALBUMIN/CREATININE [MASS RATIO] IN URINE cancmcg/mg cr 09/23/2019 Specimen Type: URINE Comment: Microalbumin is below the linearity of the instrument, unable to calculate the albumin/creatinine ratio. [facility] MICROALBUMIN ([place]) RANDOM URINE PROTEIN [MASS/VOLUME] IN URINE < 6.8mg/dL 09/23/2019 Specimen Type: URINE Comment: Microalbumin is below the linearity of the instrument, unable to calculate the albumin/creatinine ratio. [facility] MICROALBUMIN ([place]) RANDOM URINE CREATININE [MASS/VOLUME] IN URINE 37.4 mg/dL 09/23/2019 Specimen Type: URINE Comment: Microalbumin is below the linearity of the instrument, unable to calculate the albumin/creatinine ratio. [facility] PROSTATIC SPECIFIC ANTIGEN(TOTAL) PROSTATE SPECIFIC AG [MASS/VOLUME] IN SERUM OR PLASMA 1.1 ng/mL 0 - 4 09/23/2019 Specimen Type: SERUM No comment entered. [facility] TSH THYROTROPIN [UNITS/VOLUME] IN SE RUM OR PLASMA 0.67 uIU/mL 0.47 - 5.00 09/23/2019 Specimen Type: SERUM No comment entered. [facility] URINALYSIS COLOR OF URINE Yello w 09/23/2019 Specimen Type: URINE No comment entered. [facility] URINALYSIS SPECIFIC GRAVITY OF URINE 1.009 09/23/2019 Specimen Type: URINE No comment entered. [facility] URINALYSIS UROBILINOGEN [MASS/VOLUME ] IN URINE Negativemg/dL 0.1 - 1.0 09/23/2019 Specimen Type: URINE No comment entered. [facility] URINALYSIS BILIRUBIN.TOTAL [UT ESENCE] IN URINE BY TEST STRIP Negative [...] Type: URINE No comment entered. [facility] CBC & DIFF LEUKOCYTES [#/VOLUM E] IN BLOOD BY AUTOMATED COUNT 7.8 K/cmm 3.60 - 11.20 06/25/2019 Specimen Type: BLOOD No comment entered. [facility] BL[facility] CBC & DIFF ERYTHROCYTES [#/VOL UME] IN BLOOD BY AUTOMATED COUNT 5.61 M/ul 4.1 - 5.7 06/25/2019 Specimen Type: BLOOD No comment entered. [facility] & DIFF HEMOGLOBIN [MASS/VOLUME] IN BLOOD 15.2 g/dl 13.1 - 16.8 06/25/2019 Specimen T ype: BLOOD No comment entered. [facility] CBC & DIFF HEMATOCRIT [VOLUME FRACTION] OF BLOOD BY AUTOMATED COUNT 47.6 % 38.2 - 48.4 06/25/2019 Specimen Type: BLOOD No comment entered. [facility] CBC & DIFF MCV [ENTITIC VOLUME] BY A UTOMATED COUNT 84.8 fl 80.1 - 98.5 06/25/2019 Specimen Type: BLOOD No comment entered. [facility] CBC & DIFF MCH [ENTITIC MASS] BY AUT OMATED COUNT 27.1 pg 27.0 - 34.0 06/25/2019 Specimen T ype: BLOOD No comment entered. [facility] CBC & DIFF MCHC [MASS/VOLUME] BY AUT OMATED COUNT 31.9 g/dl 33.0 - 36.0 06/25/2019 L Specimen Type: BLOOD No comment entered. [facility] CBC & DIFF PLATELETS [#/VOLUME ] IN BLOOD BY AUTOMATED COUNT 270 K/cmm 150 - 400 06/25/2019 Specimen Type: BLOOD No comment entered. [facility] CBC & DIFF PLATELET MEAN VOLUM E [ENTITIC VOLUME] IN BLOOD BY AUTOMATED COUNT 10.6 fl 7.5 - 11.2 06/25/2019 Specimen Type: BLOOD No comment entered. [facility] CBC & DIFF ERYTHROCYTE DISTRIB UTION WIDTH [RATIO] BY AUTOMATED COUNT 17.8 % 11.8 - 15.1 06/25/2019 H Specimen Type: BLOOD No comment entered. [facility] CBC & DIFF LYMPHOCYTES/100 IVY KOCYTES IN BLOOD BY AUTOMATED COUNT 26.3 % 06/25/2019 Specimen Type: BLOOD No comment entered. [facility] CBC & DIFF NEUTROPHILS/100 IVY KOCYTES IN BLOOD BY AUTOMATED COUNT 61.2 % 06/25/2019 Specimen Type: BLOOD No comment entered. [facility] CBC & DIFF MONOCYTES/100 LEUKO CYTES IN BLOOD BY AUTOMATED COUNT 9.6 % 06/25/2019 Specimen Type: BLOOD No comment entered. [facility] CBC & DIFF MONOCYTES [#/VOLUME ] IN BLOOD BY AUTOMATED COUNT 0.8 K/cmm 0.19 - 0.80 06/25/2019 Specimen Type: BLOOD No comment entered. [facility] CBC & DIFF NEUTROPHILS [#/VOLU ME] IN BLOOD BY AUTOMATED COUNT 4.8 K/cmm 2.10 - 8.00 06/25/2019 Specimen Type: BLOOD No comment entered. [facility] CBC & DIFF EOSINOPHILS [#/VOLU ME] IN BLOOD BY AUTOMATED COUNT 0.1 K/cmm 0.00 - 0.60 06/25/2019 Specimen Type: BLOOD No comment entered. [facility] CBC & DIFF BASOPHILS [#/VOLUME ] IN BLOOD BY AUTOMATED COUNT 0.1 K/cmm 0.00 - 0.20 06/25/2019 Specimen Type: BLOOD No comment entered. [facility] CBC & DIFF EOSINOPHILS/100 IVY KOCYTES IN BLOOD BY AUTOMATED COUNT 1.7 % 06/25/2019 Specimen Type: BLOOD No comment entered. [facility] CBC & DIFF BASOPHILS/100 LEUKO CYTES IN BLOOD BY AUTOMATED COUNT 0.9 % 06/25/2019 Specimen Type: BLOOD No comment entered. [facility] CBC & DIFF LYMPHOCYTES [#/VOLU ME] IN BLOOD BY AUTOMATED COUNT 2.1 K/cmm 0.77 - 4.50 06/25/2019 Specimen Type: BLOOD No comment entered. [facility] CBC & DIFF IMMATURE GRANULOCYT ES [#/VOLUME] IN BLOOD BY AUTOMATED COUNT 0.02 K/cmm 0.00 - 0.05 06/25/2019 Specimen Type: BLOOD No comment entered. [facility] CBC & DIFF IMMATURE GRANULOCYT ES/100 LEUKOCYTES IN BLOOD BY AUTOMATED COUNT 0.3 % 06/25/2019 Specimen Type: BLOOD No comment entered. [facility] CA 19-9 CANCER AG 19-9 [UNITS/ VOLUME] IN SERUM OR PLASMA 7 U/mL 07/2019 Specimen T ype: SERUM Comment: [place] 19-9 This test was performed using the Siemens chemiluminescent method. Values obtained from different assay methods cannot be used inter- changeably. CA 19-9 levels, regardless of value, should not be interpreted as absolute evidence of the presence or absence of disease. [place] [facility] Vital Signs Combined list of inpatient and outpatient Vital Signs from all Department [facility] and/or [facility] medical facilities within the last 15 months. The included entries comply with the patient's data sharing authorizations. Vital Sign Value Date Comments Source PAIN 0 09/22 12:02:00 [facility] 119mm[ Hg] 06/25/2019 14:14:02 [facility] DIASTOLIC BLOOD PRESSURE 80mm[ Hg] 06/25/2019 14:14:02 [facility] WEIGHT 223.8[lb_av] 06/25/2019 14:14:02 [facility] BMI 31kg/m2 06/25/2019 14:14:02 [facility] PAIN 3 06/24 14:14:02 [facility] TEMPERATURE 98.6[degF] 06/25/2019 14:14:02 [facility] PULSE 86/min 06/25/2019 14:14:02 [facility] RESPIRATION 18/min 06/25/2019 14:14:02 [facility] PAIN 4 04/03 10:21:00 [facility] PAIN 0 03/10 12:47:00 [facility] SYSTOLIC BLOOD PRESSURE 125mm[ Hg] 12/18/2018 08:35:41 [facility] DIASTOLIC BLOOD PRESSURE 70mm[ Hg] 12/18/2018 08:35:41 [facility] Encounters Combined list of encounters at [facility] and[facility]or [facility] ) for the last 15 months. Not all [place] inpatient encounters are included. The incl uded entries comply with the patient's data sharing authorizations. Location Location Details Encounter Type Encounter Number Reason For Visit Attending Provider ADM Date DC Date Status Disposition Source Outpatient Encounter [id number] _MAPID:e [id number] 06/13/2018 [facility] 15 Outpatient Encounter [id number] ICD-10 -CM Z71.3 Dietary counseling and surveillance with Provider Comments: Dietary counseling and surveillance JOE BOBO 06/24/2018 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 Comments: Pancreatic cyst (SCT [id number]) ESTEVANCHAPO Luda 06[facility]26[facility] Out[facility] Encounter [id number] _MAPID:e [id number] 06/26/2018 [facility] 15 Outpatient Encounter [id number] ICD-10 -CM G47.33 Obstructive sleep apnea (adult) (pediatric) with Provider Comments: Obstructive Sleep Apnea (Adult) (Pediatric) KARI DUPREE 06/28/2018 [facility] Outpatient Encounter [id number] _MAPID:e [id number] 06/28/2018 [facility] 15 Outpatient Encounter [id number] ICD-10 -CM Z71.3 Dietary counseling and surveillance with Provider Comments: Dietary counseling and surveillance GARY HARRINGTON 07/08/2018 [facility] Outpatient Encounter [id number] ICD-10 -CM H90.3 Sensorineural hearing loss, bilateral with Provider Comments: Sensorineural hearing loss, bilateral (SCT [id number]) CHASTITY JEAN 07/09/2018 [facility] [place] [facility] Outpatient Encounter [id number] _MAPID:[id number] 07/09/2018 [facility] Outpatient Encounter [id number] _MAPID:[id number] 07/10/2018 [facility] Outpatient Encounter [id number] _MAPID:[id number] 07/19/2018 [facility] Outpatient Encounter [id number] _MAPID:[id number] 07/19/2018 [facility] Outpatient Encounter [id number] _MAPID:e [id number] 07/23/2018 [facility] 15 OFFICE/OUT PATIENT VISIT EST [id number] ICD-10 -CM Z86.73 Prsnl hx of TIA (TIA), and cereb infrc w/o resid deficits with Provider Comments: Personal Hx of TIA/Cerebral Inf w/o Resid Deficits ZACHARY GRECO 07/23/2018 [facility] BLAS [facility] OFFICE/OUT PATIENT VISIT EST [id number] ICD-10 -CM M25.561 Pain in right knee with Provider Comments: Pain in right Knee KAYLIE RAMSEYT 07/24/2018 [facility] OFFICE/OUT PATIENT VISIT EST [id number] ICD-10 -CM K86.2 Cyst of pancreas with Provider Comments: Cyst of pancreas ALF GUEVARA 07/25/2018 [facility] Outpatient Encounter [id number] ICD-10 -CM R94.8 Abnormal results of function studies of organs and systems with Provider Comments: Abnormal Results of Function Studies of Organs/Systems SHANIQUA SCHMIDT 07/25/2018 [facility] Outpatient Encounter [id number] _MAPID:e [id number] 07/26/2018 [facility] 15 Outpatient Encounter [id number] ICD-10 -CM Z71.89 Other specified counseling with Provider Comments: Other specified counseling JAMILAH GONZALES 07/29/2018 [facility] Outpatient Encounter [id number] _MAPID:e [id number] 07/31/2018 [facility] 15 Outpatient Encounter [id number] _MAPID:e [id number] 08/07/2018 [facility] 15 Outpatient Encounter [id number] ICD-10 -CM Z71.89 Other specified counseling with Provider Comments: Other specified counseling JESÚS MCKENZIE 08/07/2018 [facility] OFFICE CON SULTATION [id number] ICD-10 -CM 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 with Provider Comments: Malignant neoplasm of pancreatic duct JESÚS NYE 08/08/2018 [facility] Outpatient Encounter [id number] ICD-10 -CM I25.10 Athscl heart disease of [place] coronary artery w/o ang pctrs with Provider Comments: Coronary arteriosclerosis (SCT [id number]) KALA JONES 08/08/2018 [facility] Outpatient Encounter [id number] ICD-10 -CM I25.10 Athscl heart disease of [place] coronary artery w/o ang pctrs with Provider Comments: Coronary arteriosclerosis (SCT [id number]) KALA JONES R 08/08/2018 [facility] Outpatient Encounter [id number] ICD-10 -CM I25.10 Athscl heart disease of [place] coronary artery w/o ang pctrs with Provider Comments: Coronary arteriosclerosis (SCT [id number]) KALA JONES R 08/08/2018 [facility] Outpatient Encounter [id number] _MAPID:e [id number] 08/14/2018 [facility] 15 OFFICE/[place] [id number] ICD-10 -CM 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 Comments: Pancreatic cyst (SCT [id number]) SANDRO MAYA 08/15/2018 [facility] OFFICE/OUT PATIENT VISIT EST [id number] ICD-10 -CM Z71.89 Other specified counseling with Provider Comments: Other specified Counseling [place] AGUIRRE 08/15/2018 [facility] Outpatient Encounter [id number] _MAPID:e [id number] 08/15/2018 [facility] 15 Outpatient Encounter [id number] _MAPID:e [id number] 08/15/2018 [facility] 15 WI-EGD [id number] _MAPID :[id number] ALF GUEVARA 08/15/2018 [facility] Outpatient Encounter [id number] _MAPID:[id number] ALF GUEVARA 08/15/2018 [facility] Outpatient Encounter [id number] _MAPID:[id number] BALBIRAMBERCAROLINA L 08/15/2018 [facility] OFFICE/OUT PATIENT VISIT EST [id number] ICD-10 -CM Z71.89 Other specified counseling with Provider Comments: Other specified Counseling CHANEL WOLF 08/15/2018 [facility] Outpatient Encounter [id number] _MAPID:[id number] CHANEL WOLF 08/15/2018 [facility] OFFICE/OUT PATIENT VISIT EST [id number] ICD-10 -CM Z71.89 Other specified counseling with Provider Comments: Other specified Counseling NABIL CARRILLO 08/15/2018 [facility] Outpatient Encounter [id number] _MAPID:[id number] 08/16/2018 [facility] Outpatient Encounter [id number] ICD-10 -CM K22.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, unspecified with Provider Comments: Castellanos's Esophagus with Dysplasia, unspecified CAROLINA MCGREGOR 08/16/2018 [facility] Outpatient Encounter [id number] _MAPID:[id number] 08/16/2018 [facility] Outpatient Encounter [id number] ICD-10 -CM Z71.3 Dietary counseling and surveillance with Provider Comments: Dietary counseling and surveillance GARY HARRINGTON 08/20/2018 [facility] Outpatient Encounter [id number] _MAPID:e [id number] 08/21/2018 [facility] 15 Outpatient Encounter [id number] ICD-10 -CM Z71.89 Other specified counseling with Provider Comments: Other specified counseling JOAN ORTEGA 08/23/2018 [facility]AS [facility] Outpatient Encounter [id number] ICD-10 -CM Z71.89 Other specified counseling with Provider Comments: Other specified counseling ALYCIA WONG 08/27/2018 [facility] Outpatient Encounter [id number] _MAPID:[id number] 08/30/2018 [facility] Outpatient Encounter [id number] _MAPID:e [id number] 09/03/2018 [facility] 15 Outpatient Encounter [id number] _MAPID:e [id number] KALA JONES 09/20/2018 [facility] 15 Outpatient Encounter [id number] ICD-10 -CM I25.10 Athscl heart disease of [place] coronary artery w/o ang pctrs with Provider Comments: Coronary arteriosclerosis (SCT [id number]) KALA JONES 09/20/2018 [facility] Outpatient Encounter [id number] ICD-10 -CM I25.10 Athscl heart disease of [place] coronary artery w/o ang pctrs with Provider Comments: Coronary arteriosclerosis (SCT [id number]) KALA JONES 09/20/2018 [facility] BLAS [facility] Outpatient Encounter [id number] ICD-10 -CM I25.10 Athscl heart disease of [place] coronary artery w/o ang pctrs with Provider Comments: Atherosclerotic Heart Disease of [place] Coronary Artery without Angina Pectoris KALA JONES 09/20/2018 [facility] Outpatient Encounter [id number] _MAPID:e [id number] 09/20/2018 [facility] 15 Outpatient Encounter [id number] ICD-10 -CM Z86.73 Prsnl hx of TIA (TIA), and cereb infrc w/o resid deficits with Provider Comments: Personal History of Transient Ischemic Attack (Tia), and Cerebral Infarction without Residual Deficits TROY CASTELLANOS Gianna 09/27/2018 [facility] BLAS [facility] Outpatient Encounter [id number] ICD-10 -CM Z71.3 Dietary counseling and surveillance with Provider Comments: Dietary counseling and surveillance LENPANCHOGARY 09/30/2018 [facility] [place] [facility] OFFICE CON SULTATION [id number] ICD-10 -CM M54.5 Low back pain with Provider Comments: Low Back Pain ANAYELI KIRKPATRICK 10/01/2018 [facility]AS [facility] Outpatient Encounter [id number] ICD-10 -CM M54.5 Low back pain with Provider Comments: Low Back Pain JEFF HUFF 10/01/2018 [facility] Outpatient Encounter [id number] _MAPID:e [id number] 10/02/2018 [facility] 15 Outpatient Encounter [id number] _MAPID:e [id number] 10/28/2018 [facility] 15 Outpatient Encounter [id number] ICD-10 -CM I25.10 Athscl heart disease of [place] coronary artery w/o ang pctrs with Provider Comments: Athscl Hrt Disease w/o Ang Pctrs PEDRO KOROMA 11/11/2018 [facility]AS [facility] Outpatient Encounter [id number] _MAPID:e [id number] 11/16/2018 [facility] 15 Outpatient Encounter [id number] _MAPID:e [id number] 12/05/2018 [facility] 15 Outpatient Encounter [id number] ICD-10 -CM I25.10 Athscl heart disease of [place] coronary artery w/o ang pctrs with Provider Comments: Atherosclerotic Heart Disease of [place] Coronary Artery without Angina Pectoris KALA JONES 12/05/2018 [facility] Outpatient Encounter [id number] ICD-10 -CM I25.10 Athscl heart disease of [place] coronary artery w/o ang pctrs with Provider Comments: Atherosclerotic Heart Disease of [place] Coronary Artery without Angina Pectoris KALA JONES 12/05/2018 [facility] Outpatient Encounter [id number] ICD-10 -CM I25.10 Athscl heart disease of [place] coronary artery w/o ang pctrs with Provider Comments: Atherosclerotic Heart Disease of [place] Coronary Artery without Angina Pectoris KALA JONES 12/05/2018 [facility] Outpatient Encounter [id number] ICD-10 -CM I25.10 Athscl heart disease of [place] coronary artery w/o [facility] pctrs with Provider Comments: Atherosclerotic Heart Disease of [place] Coronary Artery without Angina Pectoris KALA JONES 12/05/2018 [facility] Outpatient Encounter [id number] _MAPID:e [id number] 12/13/2018 [facility] 15 Outpatient Encounter [id number] _MAPID:e [id number] 12/17/2018 [facility] 15 OFFICE/OUT PATIENT VISIT EST [id number] ICD-10 -CM K21.9 Gastro-esophageal reflux disease without esophagitis with Provider Comments: Gastro-esophageal reflux disease without esophagitis ([facility] [id number]) PAMELA RAMSEY 12/18/2018 [facility] Outpatient Encounter [id number] ICD-10 -CM Z71.3 Dietary counseling and surveillance with Provider Comments: Dietary counseling and surveillance GARY HARRINGTON 12/18/2018 [facility] Outpatient Encounter [id number] _MAPID:[id number] 12/19/2018 [facility] Outpatient Encounter [id number] _MAPID:[id number] 12/24/2018 [facility] Outpatient Encounter [id number] ICD-10 -CM R68.89 Other general symptoms and signs with Provider Comments: General Symptoms & Signs ANA CONKLIN 12/24/2018 [facility] Shu [facility] Outpatient Encounter [id number] _MAPID:e [id number] [facility] [id number] _MAPID:[id number] 01/15/2019 [facility] Out[facility] Encounter [id number] _MAPID:[id number] 01/22/2019 [place] Shu [facility] OFFICE/OUT PATIENT VISIT EST [id number] ICD-10 -CM E11.9 Type 2 diabetes mellitus without complications with Provider Comments: Type 2 diabetes mellitus without complication (SNOMED CT [id number]) ANDREW ALEJO 01/31/2019 [facility] Outpatient Encounter [id number] ICD-10 -CM M51.36 Other intervertebral disc degeneration, lumbar region with Provider Comments: Other Intervertebral Disc Degeneration, Lumbar Region NAGA MATAMOROS 03/10/2019 [facility] OFFICE CON SULTATION [id number] ICD-10 -CM D48.5 Neoplasm of uncertain behavior of skin with Provider Comments: Neoplasm of uncertain behavior of skin of eyelid (SNOMED CT [id number]) KATHERINE MATT 03/10/2019 [facility] Outpatient Encounter [id number] ICD-10 -CM Z71.89 Other specified counseling with Provider Comments: Other specified Counseling NÉSTOR CHEN 03/19/2019 ROSLYN Shu [facility] Outpatient Encounter [id number] ICD-10 -CM G47.33 Obstructive sleep apnea (adult) (pediatric) with Provider Comments: Obstructive sleep apnea (adult) (pediatric) KARI DUPREE Zaid 03/21/2019 [facility] Out[facility] Encounter [id number] _MAPID:[id number] 03/21/2019 [facility] 15 Outpatient Encounter [id number] ICD-10 -CM G47.33 Obstructive sleep apnea (adult) (pediatric) with Provider Comments: Obstructive Sleep Apnea (Adult) (Pediatric) KARI DUPREE Zaid 03/21/2019 ARTUR BLAS [facility] OFFICE/OUT PATIENT VISIT EST [id number] ICD-10 -CM G47.33 Obstructive sleep apnea (adult) (pediatric) with Provider Comments: Obstructive sleep apnea syndrome (SNOMED CT [id number]) EVONNEPHILIPPE MAURO 03/21/2019 [facility] Outpatient Encounter [id number] _MAPID:e [id number] 03/21/2019 [facility] 15 OFFICE/OUT PATIENT VISIT EST [id number] ICD-10 -CM G47.33 Obstructive sleep apnea (adult) (pediatric) with Provider Comments: Obstructive sleep apnea (adult) (pediatric) EVONNEPHILIPPE 03/21/2019 ARTUR BLAS [facility] Outpatient Encounter [id number] _MAPID:[id number] 03/21/2019 ARTUR BLAS [facility] Outpatient Encounter [id number] _MAPID:[id number] 03/24/2019 [facility] Outpatient Encounter [id number] _MAPID:e [id number] 03/26/2019 [facility] 15 Outpatient Encounter [id number] ICD-10 -CM R73.09 Other abnormal glucose with Provider Comments: Abnormal Glucose SHANIQUA SCHMIDT 03/26/2019 [facility] Outpatient Encounter [id number] _MAPID:[id number] 03/31/2019 [facility]UR [facility] Outpatient Encounter [id number] ICD-10 -CM D48.5 Neoplasm of uncertain behavior of skin with Provider Comments: Neoplasm of uncertain behavior of skin of eyelid (SCT [id number]) KATHERINE MATT 04/03/2019 [facility] Outpatient Encounter [id number] _MAPID:e [id number] 04/03/2019 [facility] 15 Outpatient Encounter [id number] ICD-10 -CM D23.112 Other benign neoplasm skin/ right lower eyelid, inc canthus with Provider Comments: Other benign neoplasm of skin of right lower eyelid, including canthus KATHERINE MATT 04/14/2019 [facility] Outpatient Encounter [id number] ICD-10 -CM Z71.3 Dietary counseling and surveillance with Provider Comments: Dietary counseling and surveillance GARY HARRINGTON 04/28/2019 [facility] Outpatient Encounter [id number] _MAPID:e [id number] 06/17/2019 [facility] 15 OFFICE/OUT PATIENT VISIT EST [id number] ICD-10 -CM 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 Comments: Pancreatic cyst (SCT [id number]) HCAPO BARRETO 06/25/2019 [facility] Outpatient Encounter [id number] _MAPID:[id number] 08/07/2019 [facility] Outpatient Encounter [id number] ICD-10 -CM 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 Comments: Pancreatic cyst (SCT [id number]) ALF GUEVARA 08/07/2019 [facility] Outpatient Encounter [id number] _MAPID:e [id number] 08/07/2019 [facility] 15 Outpatient Encounter [id number] _MAPID:[id number] 09/22/2019 [facility] Outpatient Encounter [id number] _MAPID:[id number] ADRIEL HERNANDEZ 09/22/2019 ARTUR Shu BLAS [facility] OFFICE/OUT PATIENT VISIT EST [id number] ICD-10 -CM 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 ICD-10 -CM R09.02 Hypoxemia with Provider Comments: Hypoxemia SALOMON ESTEVEZ 11/11/2019 ROSLYN Shu [facility] Outpatient Encounter [id number] _MAPID :Re11/12/2019 [facility] Outpatient Encounter [id number] ICD-10 -CM Z71.89 Other specified counseling with Provider Comments: Other specified counseling SHANIQUA SCHMIDT 11/12/2019 [facility] Outpatient Encounter [id number] ICD-10 -CM R09.02 Hypoxemia with Provider Comments: SALOMON Sahni 11/13/2019 [facility] Out[facility] Encounter [id number] ICD-10 -CM Z85.118 Personal history of malignant neoplasm of bronchus and lung with Provider Comments: History of malignant neoplasm of lung (SCT [id number]) DAYLIN WORLEY 11/14/2019 ARTUR BLAS [facility] Outpatient Encounter [id number] ICD-10 -CM G47.33 Obstructive sleep apnea (adult) (pediatric) with Provider Comments: Obstructive Sleep Apnea (Adult) (Pediatric) SALOMON ESTEVEZ 11/18/2019 ARTUR BLAS [facility] Outpatient Encounter [id number] _MAPID:en [email or web address] RIO RAMIREZ JR 11/19/2019 WENDI EVANS [facility] Outpatient Encounter [id number] _MAPID :[email or web address] 11/27/2019 ARTUR BLAS [facility] Outpatient Encounter [id number] ICD-10 -CM Z71.89 Other specified counseling with Provider Comments: Other specified counseling SHANIQUA SCHMIDT 11/27/2019 [facility] Procedures No Data Provided for This Section Social History Combined list of available smoking, tobacco, and other social history on record at Department of Defense and/or Veterans Affairs facilities. The included entrie s comply with the patient's data sharing authorizations. Social History Type Response Date Comment Source Tobacco smoking status [facility] VA-TOBACCO QUIT 15 YRS OR MORE 06/26/2018 ARTUR BLAS [facility] History of tobacco use VA-TO BACCO FORMER USER 06/26/2018 ARTUR BLAS [facility] History of tobacco use TOBAC CO USER OFFERED MEDS 11/23/2017 [facility] History of tobacco use CURRE NT TOBACCO USER 11/23/2017 [facility] History of tobacco use TOBAC CO CESSATION REFERRAL DECLINED 11/23/2017 [facility] History of tobacco use CURRE NT TOBACCO USER (READY TO QUIT) 11/23/2017 [facility] History of tobacco use NON-T OBACCO USER 06/27/2017 ARTUR BLAS [facility] History of tobacco use NON-T OBACCO USER 06/27/2017 ARTUR BLAS [facility] History of tobacco use NON-T OBACCO USER 12/18/2016 [facility] History of tobacco use NON-T OBACCO USER 01/06/2015 ARTUR BLAS [facility] History of tobacco use NON-T OBACCO USER 11/23/2014 ARTUR BLAS [facility] History of tobacco use NON-T OBACCO USER 10/26/2014 ARTUR BLAS [facility] History of tobacco use NON-T OBACCO USER 10/14/2014 ARTUR BLAS [facility] History of tobacco use NON-T OBACCO USER 12/01/2005 [facility] History of tobacco use CURRE NT NON-SMOKER 12/01/2005 [facility] History of tobacco use LIFET BRANDI NON-SMOKER 12/01/2005 [facility] History of tobacco use LIFET BRANDI NON-TOBACCO USER 12/01/2005 [facility] History of tobacco use NON-S MOKER 12/01/2005 [facility] Assessment and Plan No Data Provided for This Section Plan of Care Date/Time Care Activity Care Activity Detail Facility 04/07/2020 AMBULATORY - NONE AMBULATORY - NONE [facility] 03/31/2020 AMBULATORY - MEDICI NE AMBULATORY - MEDICINE ARTUR BLAS [facility] 03/31/2020 AMBULATORY - MEDICI NE AMBULATORY - MEDICINE [facility] 03/31/2020 AMBULATORY - MEDICI NE AMBULATORY - MEDICINE ART[facility] Luda Juan M [facility] 03/31/2020 AMBULATORY - MEDICI NE AMBULATORY - MEDICINE [facility] 01/27/2020 AMBULATORY - MEDICI NE AMBULATORY - MEDICINE [facility] 01/07/2020 AMBULATORY - MEDICI NE AMBULATORY - MEDICINE [facility] 01/01/2020 AMBULATORY - MEDICI NE AMBULATORY - MEDICINE [facility] 12/31/2019 AMBULATORY - MEDICI NE AMBULATORY - MEDICINE [facility] 12/31/2019 AMBULATORY - MEDICI NE AMBULATORY - MEDICINE ARTUR Mcgowan [facility] 12/31/2019 AMBULATORY - NONE AMBULATORY - NONE [facility] [place] [facility] 12/31/2019 Consult Order [facility] [id number] Cons Plastic Tile Setter's Choice [facility] [place] [facility] 12/15/2019 Laboratory - Chemis try Order CREATININE (INCLUDES EGFR) GREEN TOP TUB E PLASMA SP [facility] 11/17/2019 Laboratory - Chemis try Order CBC and DIFF 5 ML LAVENDER TOP BLOOD SP [facility] [place] [facility] 12/31/2019 Imaging - CT Scan O rder CT CHEST/THORAX W/CONT hx lung cancer ARTUR [place] [facility] 12/31/2019 Imaging - CT Scan O rder CT ABD and PELV W/CONTRAST hx lung cancer ARTUR BLAS [facility] Family History No Data Provided for This Section Advance Directives No Data Provided for This Section Functional Status No Data Provided for This Section
--- OUTSIDE RECORDS SUMMARY | 2019-12-02 07:30 | XMS REPORT | Encounter Summary ---
Author Author [facility] Organization [facility] Address [address] [place] [address] Phone Unavailable Care Team Providers Care Nursing Home Admissions Director Name Role Phone ADRIEL HERNANDEZ PCP Unavailable Insurance Providers: All historical and current No Data Provided for This Section Selected Encounter This section includes the information on record at CT for the Encounter. Date/Time Encounter Type Encounter Description Reason Provider Source Mar 21, 2019 10:28 AM Outpatient Encounter ADMIN PAT ACTIVTIES (NOELLE NCT) ARTUR BLAS [facility] IHE Encounter Template Text not used by CT Assessments - Encounter Diagnoses No Data Provided for This Section Plan of Treatment: Future Appointments (+ 6 months) and Future Tests (+/- 45 day s) The Plan of Treatment section includes future care activities for the patient fr om all CT treatment facilities. This section includes future appointments and fu ture orders which are active, pending or scheduled. Future Appointments This section includes appointments that were scheduled t o occur 6 months from the date of the Encounter, up to a maximum of 20 appointme nts. The data comes from all CT treatment facilities. Appointment Date/Time Appointment Type Appointment Facili ty Name Mar 26, 2019 10:00 AM AMBULATORY - NONE ARTUR BLAS [facility] Apr 03, 2019 10:00 AM AMBULATORY - SURGERY [facility]UR [facility]AS [facility] Apr 14, 2019 10:00 AM AMBULATORY - SURGERY [facility] Apr 28, 2019 11:00 AM [facility] Jun 25, 2019 11:30 AM AMBULATORY - NONE ARTUR BLAS [facility] Jun 25, 2019 01:15 PM AMBULATORY - MEDICINE [facility]UR [facility] Jul 23, 2019 11:00 AM AMBULATORY - NONE ARTUR BLAS [facility] Jul 25, 2019 08:00 AM AMBULATORY - NONE ARTUR BLAS [facility] Aug 07, 2019 10:30 AM AMBULATORY - MEDICINE ARTUR BLAS [facility] Active, Pending, and Scheduled Orders This section [...] the Encounter. The data comes from all CT treatment facilities. Test Date/Time Test Type Test Details Facility Name Apr 01, 2019 10:33 AM Consult Order [id number] Cons Application Development Project Manager's Choice [facility] Surgical Procedures: All associated to the encounter No Data Provided for This Section Lab Results: +/- 30 days of the encounter This section includes the Chemistry and Hematology Lab R esults on record with CT for the patient. Radiology Reports and Pathology Report s are provided separately, in subsequent sections. Lab Results This section contains the Chemistry/Hematology Results usha t were resulted 30 days before or 30 days after the date of the Encounter. Date/Time Source Result Type Result - Unit Interpretation Reference Range Comment Mar 21, 2019 08:55 AM [facility] HEMOGLOBIN A1C Specimen Type: BLOOD No comment [...] and tobacco- related health factors from the CT facility where the Encounter took place. Current Smoking Status This section includes the most current smoking, or tobacco -related health factor, from the CT facility where the Encounter took place. Date/Time Current Smoking Status Comment Facility Jun 26, 2018 02:13 PM VA-TOBACCO QUIT 15 YRS OR MORE PORSHA BLAS [facility] Tobacco Use History This section includes a history of the smoking, or tobacco -related health factors, that were collected on or before the date of the Encoun ter. The data comes from the CT facility where the Encounter took place. Date/Time Smoking Status/Tobacco Use Comment Josseline avina Jun 26, 2018 02:13 PM VA-TOBACCO QUIT 15 YRS OR MORE PORSHA BLAS [facility] Jun 27, 2017 01:39 PM NON-TOBACCO [...] patient. The data comes from a ll CT treatment facilities. It does not list Allergies/ADRs that were removed or entered in error. Some allergies/ADRs may be reported in t Immunization section. Allergen Event Date Event Type Reaction(s) Severity Source [place] September 08, 2014 Propensity to adverse reactions to drug (diso rder) [facility] 15 [place] September 08, 2014 Propensity to adverse reactions to drug (diso rder) [facility] Medications: VA dispensed (-15 months) and Non-VA Documented (Obtained Outside V A) Section Date Range: 1) prescriptions processed by a VA pharmacy in the last 15 m [facility], and 2) all medications recorded in the VA medical record as "non-VA medic ations". Pharmacy terms refer to CT pharmacy's work on prescriptions. VA patient s are advised to take their medications as instructed by their health care team. The data comes from all CT treatment facilities. Glossary of Pharmacy Terms:Active = A prescription that can be filled at the local [place] pharmacy.Active: On Hold = An active prescription that will not be filled until pharmacy resolves the issue.Active: Susp = An active prescription that is not scheduled to be filled yet.Clinic Order = A medication received during a visit to a CT clinic or emergency department (currently not available).Discontinued [...] may be a prescription from either the CT or other providers that was filled outside the CT. Or, it may be an over the [...] TEST BLOOD GLUCOSE 50 Dec 19, 2019 [id number] September 04, 2019 PAMELA RAMSEY ACCU-CHEK CHARLES PLUS (GLUCOSE) TEST STRIP Discontinued USE 1 STRIP FOR TESTING TWO TIMES PER WEEK - DIRECTED TO TEST BLOOD GLUCOSE 50 Jul 25, 2019 [id number] Nov 12, 2018 PAMELA RAMSEY ALBUTEROL SO4 90MCG/ACTUAT (CFC-F) INHL,ORAL,6.7GM Active INHALE 2 PUFFS BY ORAL INHALATION EVERY 4 HOURS NEEDED FOR BREATHING. SHAKE WELL. RINSE MOUTHPIECE FREQUENTLY TO PREVENT CLOGGING. USE NEEDED FOR SHORTNESS OF AIR/WHEEZING FOR BREATHING. SHAKE WELL. RINSE MOUTHPIECE FREQUENTLY TO PREVENT CLOGGING. USE NEEDED FOR SHORTNESS OF AIR/WHEEZING Dec 19, 2019 [id number] September 04, 2019 PAMELA RAMSEY ALCOHOL PREP PAD Active USE 1 PAD ON SKIN BIW TO CLEAN AND DISINFECT THE SKIN 200 Sep 29, 2020 [id number] Sep 30, 2019 CHUCHO,MAURICIO [facility] ALCOHOL PREP PAD Discontinued USE 1 PAD ON SKIN BI W TO CLEAN AND DISINFECT THE SKIN 200 Dec 19, 2019 [id number] Jun 06, 2019 [facility]EL[facility] ALCOHOL PREP PAD Discontinued USE 1 PAD ON SKIN BI W TO CLEAN AND DISINFECT THE SKIN 200 Jul 25, 2019 [id number] Nov 12, 2018 PAMELA RAMSEY [facility] ASCORBIC ACID 250MG TAB Non-VA TAKE ONE TABLET BY MOUTH ONCE A DAY Non-VA Documented by: SHANIQUA SCHMIDT nted at: [facility] ASPIRIN 25MG/DIPYRIDAMOLE 200MG CAP,SA Active T CHAPIN 1 CAPSULE BY MOUTH TWO TIMES A DAY - SWALLOW WHOLE. DO NOT CRUSH OR CHEW. FOR RECURRENT TIA/STROKE 180 Dec 19, 2019 [id number] Dec 20, 2018 [facility] ASPIRIN 25MG/DIPYRIDAMOLE 200MG CAP,SA Discontinued T CHAPIN 1 CAPSULE BY MOUTH TWO TIMES A DAY - SWALLOW WHOLE. DO NOT CRUSH OR CHEW. FOR RECURRENT TIA/STROKE 180 Feb 06, 2019 [id number] Sep 28, 2018 ZACHARY GRECO [facility] ASPIRIN 81MG TAB,EC Non- VA TAKE ONE TABLET BY MOUTH ONCE A DAY Non-VA Documented by: PADMA LONG nted at: [facility] ATORVASTATIN CA 80MG TAB Active TAKE ONE TABLET BY MOUTH AT BEDTIME FOR CHOLESTEROL - REPORT ANY UNEXPLAINED MUSCLE PAIN/WEAKNESS TO YOUR PROVIDER 90 Dec 19, 2019 [id number] September 04, 2019 PAMELA RAMSEY [facility] ATORVASTATIN CA 80MG TAB Discontinued TAKE ONE TABLET BY MOUTH AT BEDTIME FOR CHOLESTEROL - REPORT ANY UNEXPLAINED MUSCLE PAIN/WEAKNESS TO YOUR PROVIDER 90 Dec 20, 2018 [id number] Nov 12, 2018 PAMELA RAMSEY [facility] BUDESONIDE 160MCG/FORMOTEROL FUM 4.5MCG/SPRAY INHL,ORAL,10.2 GM Active INHALE 2 PUFFS BY MOUTH TWO TIMES A DAY FOR BREATHING. SHAKE WELL. RINSE MOUTH AND SPIT AFTER EACH USE. 3 Apr 24, 2020 [id number] August 22, 2019 LISSA OATES [facility] CALCIUM/VITAMIN D TAB No n-VA TAKE BY MOUTH ONCE A DAY Non-V A Documented by: PADMA LONG nted at: [facility] CARBOXYMETHYLCELLULOSE NA 0.5% SOLN,OPH Active INSTILL ONE DROP IN BOTH EYES FOUR TIMES A DAY FOR DRY EYES Feb 01, 2020 [id number] September 03 0 [facility] DICLOFENAC NA 1% GEL,TOP Discontinued APPLY 2 GRAMS A FFECTED AREA TWO TIMES A DAY NEEDED FOR PAIN AND INFLAMMATION. DO NOT EXCEED 16GM DAILY TO ANY AFFECTED JOINT OF LOWER EXTREMITIES. DO NOT EXCEED 8GM DAILY TO ANY AFFECTED JOINT OF UPPER EXTREMITES. DO NOT EXCEED TOTAL DOSE OF 32GM DAILY FOR ALL JOINTS. 100 Oct 31, 2018 [id number] Oct 06, 2018 ANAYELI KIRKPATRICK [facility] DICLOFENAC NA 1% GEL,TOP APPLY 2 GRAMS A FFECTED AREA TWO TIMES A DAY NEEDED FOR PAIN AND INFLAMMATION. DO NOT EXCEED 16GM DAILY TO ANY AFFECTED JOINT OF LOWER EXTREMITIES. DO NOT EXCEED 8GM DAILY TO ANY AFFECTED JOINT OF UPPER EXTREMITES. DO NOT EXCEED TOTAL DOSE OF 32GM DAILY FOR ALL JOINTS. 100 Jan 17, 2019 [id number] Dec 20, 2018 PAMELA RAMSEY FLUTICASONE PROPIONATE 50MCG/SPRAY SOLN,NASAL,16GM Active INSTILL 1 SPRAY IN EACH NOSTRIL ONCE A DAY SHAKE GENTLY BEFORE USE! - MUST BE USED DIRECTED FOR 3 WEEKS TO PROVIDE BENEFIT. * NO EARLY REFILLS * 1UNIT = 30DAYS AT 4 PF/DAY OR 60DAYS AT 2PF/DAY 2 Dec 19, 2019 [id number] August 26, 2019 PAMELA RAMSEY KETOTIFEN 0.025% SOLN,OPH Active INSTILL 1 DROP IN BOTH EYES TWO TIMES A DAY FOR RELIEF OF ALLERGY SYMPTOMS IN EYE(S) Feb 01, 2020 [id number] September 04, 2019 [facility] LANCET,SOFTCLIX Active USE LANCET BIW FOR TESTING BL OOD GLUCOSE DIRECTED Sep 29, 2020 [id number] Sep 30, 2019 MAURICIO RANKIN LANCET,SOFTCLIX Discontinued USE LANCET BIW FO R TESTING BLOOD GLUCOSE DIRECTED Dec 19, 2019 [id number] Jun 06, 2019 [facility] LANCET,SOFTCLIX Discontinued USE LANCET BIW FO R TESTING BLOOD GLUCOSE DIRECTED 100 Jul 25, 2019 [id number] Nov 12, 2018 PAMELA RAMSEY LISINOPRIL 40MG TAB Non- VA TAKE ONE-HALF TABLET BY MOUTH EVERY MORNING Non-VA Documented by: PAMELA RAMSEY nted at: [facility] LORATADINE/PSEUDOEPHEDRINE TAB,SA Non-VA TAKE BY MOUTH No n-VA Documented by: JUAN LANG Docume nted at: ARTUR BLAS [facility] MAGNESIUM OXIDE 400MG TAB Non-VA TAKE [...] ACID (REPLACES ACIPHEX) 180 Dec 19, 2019 [id number] August 26, 2019 PAMELA RAMSEY POLYETHYLENE GLYCOL [...] Non-VA Documented by: KATHERINE MATT nted at: [facility] PREGABALIN 150MG CAP,ORAL Non-VA TAKE 1 CAPSULE BY MOUTH TWO TIMES A DAY Non-VA Docume nted by: PAMELA RAMSEY nted at: [facility] SEMAGLUTIDE INJ,SOLN Non -VA INJECT SUBCUTANEOUSLY EVERY WEEK Non-VA Documented by: ANAYELI KIRKPATRICKume nted at: ARTUR BLAS [facility] TERBINAFINE HCL 1% CREAM,TOP Active APPLY LIGHT LY TO AFFECTED AREA TWO TIMES A DAY FOR INFECTION 90 Sep 23, 2020 [id number] Sep 24, 2019 ADRIEL HERNANDEZ CBGUILLERMO UREA 20% CREAM,TOP Active APPLY LIGHTLY (20%) TO AFFECTED AREA TWO TIMES A DAY NEEDED TO PROMOTE HEALING,RUB IN UNTIL COMPLETELY ABSORBED*FOR TOPICAL USE ONLY* APPLY TO BOTH FEET DIRECTED. 90 Sep 25, 2020 [id number] Sep 26, 2019 ADRIEL HERNANDEZ Problems (Conditions): All historical and current Section Date Range: From patient's date of to the date document was create d. This section includes a list of Problems (Conditions) know n to [facility] for the patient. It includes both active and inacti ve problems (conditions). The data comes from all CT treatment facilities. Problem Status Problem Code Date of Onset Date of Resolution Comm ent(s) Provider Source Alcohol intake above recommended sensible limits Active 856819228 PADMA [facility] Allergic conjunctivitis Active 543087239 [facility] Bilateral senile combined form cataracts of eyes Active 96130339820 9108 [facility] Bilateral tinnitus Active 8634744193336 [facility] Coronary arteriosclerosis Active 97617742 September 08, 2014 Entered By: PADMA LONG Comment: hx of ptca to RCA several yrs. agoSeptember 08, 2014 Entered By: PADMA LONG Comment: heart cath 09/01/14, neg. / previous stent to RCA,, [place] HATCHER, JENNEY R [facility] Diabetes mellitus Active 43271905 [facility]EL[facility] RAMSE[facility] Disorder of pancreas Active 4690813 September 08, 2014 Entered By: PADMA LONG Comment: 2.5cm low density lseion in bodyMay 2014 Entered By: PADMA LONG Comment: question of communication with pancreatic ductMa2014 Entered By: PADMA LONG Comment: favored to be cystic pancreatic cancerSeptember 08, 2014 Entered By: PADMA LONG Comment: per abdominal CT 09/01/14, [place] PADMA LONG [facility] Dry eyes Active 170725995 [facility] Gastro-esophageal reflux disease without esophagitis ( SNOMED CT 655059137) Active 997856084 ALF GUEVARA [facility] History of malignant neoplasm of lung Active 601359680 [facility] Hyperlipidemia (SNOMED CT 31231817) Active 61041829 PAMELA RAMSEY [facility] Lung mass Active 518290851 September 08, 2014 E ntered By: PADMA LONG Comment: 4.5 cm mass, post. segment right upper lobe.September 08, 2014 Entered By: PADMA LONG Comment: mild adenopathy in mediastinum and bilat. hilaMa2014 Entered By: PADMA LONG Comment: most likely related to lung cancerMa2014 Entered By: PADMA LONG Comment: per ct angio of chest with contrast 09/01/14,[place] Entered By: PADMA LONG Comment: per path report- mod. differentiated bronchogenic adenoca. 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 Active 82788058 KATHERINE MTAT [facility] Obesity Active 589964432 SONG BULLOCK Juan M [facility] Obstructive sleep apnea syndrome (SNOMED CT 35864795) Active 211577 015 [facility] Pancreatic cyst Active 86199506 JAYLENE GUEVARA [facility] Papilloma of right eyelid Active 862945669456855 [facility] Polyp of colon Active 09298310 Jan 23 16 Entered By: PADMA LONG Comment: c-scope 01/17/16, multiple benign colonic polypsJun 28, 2017 Entered By: PADMA LONG Comment: c-scope,06/25/17,[facility], three benign polyps- sigmoid colon, transverse colon,cecum. see path report cprs SHARRON TORRES [facility] Pulmonary emphysema Active 24027523 0 BRIANA LESLYE [place] [facility] Sensorineural hearing loss, bilateral Active 471454704 CHASTITY JEAN ARTUR [facility] Snoring Active 02899356 ARASONG SIDDIQUI [facility] Type 2 diabetes mellitus without complication Active 572724499 [facility] Environmental Allergies (ICD-9-CM 477.9) Inactive 477.9 Dec 18, 2017 [facility] External hemorrhoids without mention of complication (ICD-9- CM 455.3) Inactive 455.3 Dec 18, 2017 [facility]ADMA LONG [facility] Impotence of organic origin (ICD-9-CM 607.84) Inactive 607.84 Dec 18, 2017 [facility] Screening for Lipoid disorders (ICD-9-CM V77.91) Inactive V77.91 Jan 18, 2007 [facility] Stye * (ICD-9-CM 373.11) Inactive 373.11 Dec 18, 8 Jan 18, 2007 Entered By: PADMA LONG Comment: bilat lower lids, chronic/recurrent PADMA LONG [facility] Tobacco Use Disorder, Continuous Inactive 305.1 Dec 18, 2017 Jan 18, 2007 Entered By: PADMA LONG Comment: one ppd PADMA LONG [facility] Radiology Reports: +/- 30 days of [...] the Encounter. The data comes from all [facility] treatment facilities. Date/Time Pathology Report Provider Source [...] 11:11) Microscopic examination is performed. DIAGNOSIS: Specimen: [id number] Spec Type: SURGICAL Abdulkadir: 04/03/19 Rec: 04/03/19-1241 PATHOLOGIC DIAGNOSIS Skin lesion, right upper cheek, biopsy: 1. Seborrheic keratosis, not involving resection margins. 2. Solar elastosis. Skin lesion, right lower mid margin, biopsy: 1. Seborrheic keratosis, with tumor at tissue edge/margin, but with benign features. LL COPIES TO: KATHERINE MATT [facility] PATHOLOGIST CODES: 22405/2 at 1235 The gross and microscopic examinations and interpretation were performed at [facility] Department of Pathology, [address] [place] [address]. Slides and paraffin blocks are on file at [facility]. =--=--=--=--=--=--=--=--=--=--=--=--=--=--=--=--=--=--=--=--=--=--=--=--=--=-- Performing Laboratory: Surgical Pathology Report Performed By: [facility] [CLIA# [id number]] [facility] [place] [address] [facility] 15 Encounter Notes: All associated encounter notes This section contains the clinical notes associated to the Encounter. Date/Time Encounter Note(s) Provider Source Mar 21, 2019 10:28 AM ADMINISTRATIVE NOTE: LOCAL TITLE: [place]-ADMIN [facility] STANDARD TITLE: ADMINISTRATIVE NOTE DATE OF NOTE: MAR 21, 2019@10:28 ENTRY DATE: MAR 21, 2019@10:28:57 AUTHOR: MARYURI REICH EXP COSIGNER: URGENCY: STATUS: COMPLETED [facility] biopsy for 04/10/2019. Letter sent to address on record. /gisell/ MARYURI REICH Signed: 03/21/2019 10:32 MARYURI REICH [facility]
--- OUTSIDE RECORDS SUMMARY | 2019-12-02 07:30 | XMS REPORT | Encounter Summary ---
Author Author [facility] Organization [facility] Address [address] [place] [address] Phone Unavailable Care Team Providers Care Delivery Aide Name Role Phone MARYADRIEL YAN PCP Unavailable Insurance Providers: All historical and current No Data Provided for This Section Selected Encounter This section includes the information on record at PA for the Encounter. Date/Time Encounter Type Encounter Description Reason Provider Source Jan 15, 2019 11:31 AM Outpatient Encounter ADMIN PAT ACTIVTIES (MASVIELKA NCT) ARTUR BLAS [facility] IHE Encounter Template Text not used by PA Assessments - Encounter Diagnoses No Data Provided for This Section Plan of Treatment: Future Appointments (+ 6 months) and Future Tests (+/- 45 day s) The Plan of Treatment section includes future care activities for the patient fr om all PA treatment facilities. This section includes future appointments and fu ture orders which are active, pending or scheduled. Future Appointments This section includes appointments that were scheduled t o occur 6 months from the date of the Encounter, up to a maximum of 20 appointme nts. The data comes from all PA treatment facilities. Appointment Date/Time Appointment Type Appointment Facili ty Name Jan 31, 2019 09:00 AM AMBULATORY - MEDICINE [facility] Mar 10, 2019 12:30 PM AMBULATORY - SURGERY [facility] Mar 21, 2019 09:15 AM AMBULATORY - NONE [facility] Mar 21, 2019 09:30 AM AMBULATORY - MEDICINE [facility] Mar 21, 2019 09:31 AM AMBULATORY - MEDICINE ARTUR BLAS [facility] Mar 21, 2019 10:00 AM AMBULATORY - MEDICINE [facility] Mar 21, 2019 10:01 AM AMBULATORY - MEDICINE ARTUR BLAS [facility] Mar 26, 2019 10:00 AM AMBULATORY - NONE ARTUR BLAS [facility] Apr 03, 2019 10:00 AM AMBULATORY - SURGERY ARTUR BLAS [facility] Apr 14, 2019 10:00 AM AMBULATORY - SURGERY [facility] Apr 28, 2019 11:00 AM AMBULATORY - NONE ARTUR BLAS [facility] Jun 25, 2019 11:30 AM AMBULATORY - NONE ARTUR BLAS [facility] Jun 25, 2019 01:15 PM AMBULATORY - MEDICINE ARTUR BLAS [facility] Surgical Procedures: All associated to the encounter No Data Provided for This Section Lab Results: +/- 30 days of the encounter This section includes the Chemistry and Hematology Lab R esults on record with PA for the patient. Radiology Reports and Pathology Report s are provided separately, in subsequent sections. Lab Results This section contains the Chemistry/Hematology Results usha t were resulted 30 days before or 30 days after the date of the Encounter. Date/Time Source Result Type Result - Unit Interpretation Reference Range Comment Dec 18, 2018 08:45 AM [facility] CBC & DIFF Specimen Type: [...] 0.4 % Dec 18, 2018 08:45 AM [employer] [facility] COMPREHENSIVE METABOLIC PA KELLE Specimen Type: PLASMA [...] EGFR >60 Dec 18, 2018 08:45 AM [employer] [facility] LIPID PROFILE(HDL,TRIG,CHO L,LDL) Specimen Type: PLASMA Comment: For eGFR: eGFR results >60 are imprecise. Many variables affect the calculated result. Interpretation of eGFR results >60 must be monitored over time. CHOLESTEROL 172 mg/dL 0-200 TRIGS 190 mg/dL H 0-150 HDL-CHOLESTEROL 40 mg/dL >40 LDL (CALC) 94 mg/dL 0-99.9 Dec 18, 2018 08:45 AM [employer] [facility] PROSTATIC SPECIFIC ANTIGEN (TOTAL) Specimen Type: SERUM No comment entered. PROSTATIC SPECIFIC ANTIGEN(TOTAL) 1.3 ng/mL 0-4 Dec 18, 2018 08:45 AM [facility] HEMOGLOBIN A1C Specimen Type: BLOOD No comment entered. HEMOGLOBIN A1C 6.7 % H 4.0-6.0 Dec 18, 2018 08:45 AM [facility] URIC ACID (mg/dL) Specimen Type: PLASMA Comment: For eGFR: eGFR results >60 are imprecise. Many variables affect the calculated result. Interpretation of eGFR results >60 must be monitored over time. URIC ACID (mg/dL) 5.8 mg/dL 3.5-7.2 Dec 18, 2018 08:45 AM [facility] URINALYSIS Specimen Type: URINE No comment entered. URINE COLOR Yellow SPECIFIC GRAVITY 1.013 1.005-1.030 UROBILINOGEN Negative mg/dL 0.1-1.0 URINE BILIRUBIN Negative Negative URINE KETONES Negative mg/dl Negative URINE GLUCOSE Negative mg/dL Negative URINE PROTEIN Negative mg/dl Negative-Tr zainab URINE PH 5.0 5-8 APPEARANCE,URINE Clear Clear URINE BLOOD Negative Negative URINE NITRITE Negative Negative LEUKOCYTE ESTERASE Negative Negative Dec 18, 2018 08:45 AM [facility] MICROALBUMIN (ANANT,WI) RANDO M URINE Specimen Type: URINE Comment: Microalbumin is below the linearity of the instrument, unable to calculate the albumin/creatinine ratio. *MICROALBUMIN,RAND < 5 ug/mL *MICROALB/CREAT canc mcg/mg cr *PROT/PHOTOENGRAVING HELPER RATIO 0.1 *UR PROTEIN 8 mg/dL *UR [...] and tobacco- related health factors from the PA facility where the Encounter took place. Current Smoking Status This section includes the most current smoking, or tobacco -related health factor, from the PA facility where the Encounter took place. Date/Time Current Smoking Status Comment [facility] Jun 26, 2018 02:13 PM VA-TOBACCO QUIT 15 YRS OR MORE [facility] Tobacco Use History This section includes a history of the smoking, or tobacco -related health factors, that were collected on or before the date of the Encoun ter. The data comes from the PA facility where the Encounter took place. Date/Time Smoking Status/Tobacco Use Comment [facility] Jun 26, 2018 02:13 PM VA-TOBACCO QUIT 15 YRS OR MORE [facility]E [facility] Jun 27, 2017 01:39 PM NON-TOBACCO USER ARTUR BL[facility] Jun 27, 2017 01:16 PM NON-TOBACCO USER ARTUR BLAS [facility] Jan 06, 2015 02:07 PM NON-TOBACCO USER ARTUR BLAS [facility] Nov 23, 2014 10:38 AM NON-TOBACCO USER ARTUR BL[facility] Oct 26, 2014 10:36 AM NON-TOBACCO USER ARTUR BLAS [facility] Oct 14, 2014 11:09 AM NON-TOBACCO USER ARTUR BLAS [facility] Advance Directives: All historical and current No Data Provided for This Section Allergies and Adverse Reactions (ADRs): All historical and current Section Date Range: From patient's date of to the date document was create d. This section includes Allergies and Adverse Reactions (ADR s) on record with VA for the patient. The data comes from a ll PA treatment facilities. It does not list Allergies/ADRs that were removed or entered in error. Some allergies/ADRs may be reported in t Immunization section. Allergen Event Date Event Type Reaction(s) Severity Source [place] September 08, 2014 Propensity to adverse reactions to drug (diso rder) [facility] 15 [place] September 08, 2014 Propensity to adverse reactions to drug (diso rder) [facility] 15 Medications: VA dispensed (-15 months) and Non-VA Documented (Obtained Outside V A) Section Date Range: 1) prescriptions processed by a VA pharmacy in the last 15 m [facility], and 2) all medications recorded in the PA medical record as "non-VA medic ations". Pharmacy terms refer to VA pharmacy's work on prescriptions. VA patient s are advised to take their medications as instructed by their health care team. The data comes from all PA treatment facilities. Glossary of Pharmacy Terms:Active = A prescription that can be filled at the local PA pharmacy.Active: On Hold = An active prescription that will not be filled until pharmacy resolves the issue.Active: Susp = An active prescription that is not scheduled to be filled yet.Clinic Order = A medication received during a visit to a PA clinic or emergency department (currently not available).Discontinued [...] other providers that was filled outside the PA. Or, it may be an over the [...] TEST BLOOD GLUCOSE 50 Dec 19, 2019 [id number] September 04, 2019 PAMELA RAMSEY ACCU-CHEK CHARLES PLUS (GLUCOSE) TEST STRIP Discontinued USE 1 STRIP FOR TESTING TWO TIMES PER WEEK - DIRECTED TO TEST BLOOD GLUCOSE 50 Jul 25, 2019 [id number] Nov 12, 2018 PAMELA RAMSEY [facility] ALBUTEROL SO4 90MCG/ACTUAT (CFC-F) INHL,ORAL,6.7GM Active INHALE 2 PUFFS BY ORAL INHALATION EVERY 4 HOURS NEEDED FOR BREATHING. SHAKE WELL. RINSE MOUTHPIECE FREQUENTLY TO PREVENT CLOGGING. USE NEEDED FOR SHORTNESS OF AIR/WHEEZING FOR BREATHING. SHAKE WELL. RINSE MOUTHPIECE FREQUENTLY TO PREVENT CLOGGING. USE NEEDED FOR SHORTNESS OF AIR/WHEEZING 1 Dec 19, 2019 [id number] September 04, 2019 PAMELA RAMSEY CBGUILLER[facility] ALCOHOL PREP PAD Active USE 1 PAD ON SKIN BIW TO CLEAN AND DISINFECT THE SKIN 200 Sep 29, 2020 [id number] Sep 30, 2019 MAURICIO RANKIN CB[facility]LLER[facility] ALCOHOL PREP PAD Discontinued USE 1 PAD ON SKIN BI W TO CLEAN AND DISINFECT THE SKIN 200 Dec 19, 2019 [id number] Jun 06, 2019 PAMELA RAMSEY ALCOHOL PREP PAD Discontinued USE 1 PAD ON SKIN BI W TO CLEAN AND DISINFECT THE SKIN 200 Jul 25, 2019 [id number] Nov 12, 2018 PAMELA RAMSEY CB[facility]LLERMO ASCORBIC ACID 250MG TAB Non-VA TAKE ONE TABLET BY MOUTH ONCE A DAY Non-VA Documented by: SHANIQUA SCHMIDT nted at: [facility] ASPIRIN 25MG/DIPYRIDAMOLE 200MG CAP,SA Active T CHAPIN 1 CAPSULE BY MOUTH TWO TIMES A DAY - SWALLOW WHOLE. DO NOT CRUSH OR CHEW. FOR RECURRENT TIA/STROKE 180 Dec 19, 2019 [id number] Dec 20, 2018 [facility]A [facility]SEY [facility] ASPIRIN 25MG/DIPYRIDAMOLE 200MG CAP,SA Discontinued T CHAPIN 1 CAPSULE BY MOUTH TWO TIMES A DAY - SWALLOW WHOLE. DO NOT CRUSH OR CHEW. FOR RECURRENT TIA/STROKE 180 Feb 06, 2019 [id number] Sep 28, 2018 ZACHARY GRECO [facility] ASPIRIN 81MG TAB,EC Non- VA TAKE ONE TABLET BY MOUTH ONCE A DAY Non-VA Documented by: PADMA LONG nted at: [facility] ATORVASTATIN CA 80MG TAB Active TAKE ONE TABLET BY MOUTH AT BEDTIME FOR CHOLESTEROL - REPORT ANY UNEXPLAINED MUSCLE PAIN/WEAKNESS TO YOUR PROVIDER 90 Dec 19, 2019 [id number] September 04, 2019 PAMELA RAMSEY ATORVASTATIN CA 80MG TAB Discontinued TAKE ONE TABLET BY MOUTH AT BEDTIME FOR CHOLESTEROL - REPORT ANY UNEXPLAINED MUSCLE PAIN/WEAKNESS TO YOUR PROVIDER 90 Dec 20, 2018 [id number] Nov 12, 2018 PAMELA RAMSEY BUDESONIDE 160MCG/FORMOTEROL FUM 4.5MCG/SPRAY INHL,ORAL,10.2 GM Active INHALE 2 PUFFS BY MOUTH TWO TIMES A DAY FOR BREATHING. SHAKE WELL. RINSE MOUTH AND SPIT AFTER EACH USE. 3 Apr 24, 2020 [id number] August 22, 2019 LISSA OATES [facility] CALCIUM/VITAMIN D TAB No n-VA TAKE BY MOUTH ONCE A DAY Non-V A Documented by: PADMA LONG nted at: [facility] CARBOXYMETHYLCELLULOSE NA 0.5% SOLN,OPH Active INSTILL ONE DROP IN BOTH EYES FOUR TIMES A DAY FOR DRY EYES 15 Feb 01, 2020 [id number] September 03 0 NEDA SHAW [facility] DICLOFENAC NA 1% GEL,TOP Discontinued APPLY 2 GRAMS A FFECTED AREA TWO TIMES A DAY NEEDED FOR PAIN AND INFLAMMATION. DO NOT EXCEED 16GM DAILY TO ANY AFFECTED JOINT OF LOWER EXTREMITIES. DO NOT EXCEED 8GM DAILY TO ANY AFFECTED JOINT OF UPPER EXTREMITES. DO NOT EXCEED TOTAL DOSE OF 32GM DAILY FOR ALL JOINTS. 100 Oct 31, 2018 [id number] Oct 06, 2018 ANAYELI KIRKPATRICK Luda Juan M LEVIMila [facility] DICLOFENAC NA 1% GEL,TOP APPLY 2 GRAMS A FFECTED AREA TWO TIMES A DAY NEEDED FOR PAIN AND INFLAMMATION. DO NOT EXCEED 16GM DAILY TO ANY AFFECTED JOINT OF LOWER EXTREMITIES. DO NOT EXCEED 8GM DAILY TO ANY AFFECTED JOINT OF UPPER EXTREMITES. DO NOT EXCEED TOTAL DOSE OF 32GM DAILY FOR ALL JOINTS. 100 Jan 17, 2019 [id number] Dec 20, 2018 PAMELA RAMSEY FLUTICASONE PROPIONATE 50MCG/SPRAY SOLN,NASAL,16GM Active INSTILL 1 SPRAY IN EACH NOSTRIL ONCE A DAY SHAKE GENTLY BEFORE USE! - MUST BE USED DIRECTED FOR 3 WEEKS TO PROVIDE BENEFIT. * NO EARLY REFILLS * 1UNIT = 30DAYS AT 4 PF/DAY OR 60DAYS AT 2PF/DAY 2 Dec 19, 2019 [id number] August 26, 2019 PAMELA RAMSEY KETOTIFEN 0.025% SOLN,OPH Active INSTILL 1 DROP IN BOTH EYES TWO TIMES A DAY FOR RELIEF OF ALLERGY SYMPTOMS IN EYE(S) Feb 01, 2020 [id number] September 04, 2019 NEDA SHAW [facility] LANCET,SOFTCLIX Active USE LANCET BIW FOR TESTING BL OOD GLUCOSE DIRECTED Sep 29, 2020 [id number] Sep 30, 2019 MAURICIO RANKIN LANCET,SOFTCLIX Discontinued USE LANCET BIW FO R TESTING BLOOD GLUCOSE DIRECTED Dec 19, 2019 [id number] Jun 06, 2019 PAMELA RAMSEY LANCET,SOFTCLIX Discontinued USE LANCET BIW FO R TESTING BLOOD GLUCOSE DIRECTED Jul 25, 2019 [id number] Nov 12, 2018 PAMELA RAMSEY LISINOPRIL 40MG TAB Non- VA TAKE ONE-HALF TABLET BY MOUTH EVERY MORNING Non-VA Documented by: PAMELA RAMSEY Docume nted at: [facility] LORATADINE/PSEUDOEPHEDRINE TAB,SA Non-VA TAKE BY MOUTH No n-VA Documented by: JUAN LANGume nted at: [facility] MAGNESIUM OXIDE 400MG TAB Non-VA TAKE [...] ACID (REPLACES ACIPHEX) 180 Dec 19, 2019 [id number] August 26, 2019 PAMELA RAMSEY POLYETHYLENE GLYCOL [...] Non-VA Documented by: KATHERINE MATT nted at: [facility] PREGABALIN 150MG CAP,ORAL Non-VA TAKE 1 CAPSULE BY MOUTH TWO TIMES A DAY Non-VA Docume nted by: PAMELA RAMSEY nted at: [facility] SEMAGLUTIDE INJ,SOLN Non -VA INJECT SUBCUTANEOUSLY EVERY WEEK Non-VA Documented by: ANAYELI KIRKPATRICKume nted at: ARTUR BLAS [facility] TERBINAFINE HCL 1% CREAM,TOP Active APPLY LIGHT LY TO AFFECTED AREA TWO TIMES A DAY FOR INFECTION 90 Sep 23, 2020 [id number] Sep 24, 2019 ADRIEL HERNANDEZ UREA 20% CREAM,TOP Active APPLY LIGHTLY (20%) TO AFFECTED AREA TWO TIMES A DAY NEEDED TO PROMOTE HEALING,RUB IN UNTIL COMPLETELY ABSORBED*FOR TOPICAL USE ONLY* APPLY TO BOTH FEET DIRECTED. 90 Sep 25, 2020 [id number] Sep 26, 2019 ADRIEL HERNANDEZ [facility] Problems (Conditions): All historical and current Section Date Range: From patient's date of to the date document was create d. This section includes a list of Problems (Conditions) know n to VA for the patient. It includes both active and inacti ve problems (conditions). The data comes from all PA treatment facilities. Problem Status Problem Code Date of Onset Date of Resolution Comm ent(s) Provider Source Alcohol intake above recommended sensible limits Active [id number] PADMA LONG [facility] Allergic conjunctivitis Active 227700329 [facility]A [facility] Bilateral senile combined form cataracts of eyes Active [id number] 9108 ANSLEYFACUNDONEDA J [facility] Bilateral tinnitus Active [id number] CHASTITY JEAN [facility] Coronary arteriosclerosis Active 59724276 September 08, 2014 Entered By: PADMA LONG Comment: hx of ptca to RCA several yrs. agoSeptember 08, 2014 Entered By: PADMA LONG Comment: heart cath 09/01/14, neg. / previous stent to RCA,, via abida meneses ks HATCHER, JENNEY R ROBERT [facility] Diabetes mellitus Active 13925770 PAMELA RAMSEY [facility] Disorder of pancreas Active 2334411 September 08, 2014 Entered By: PADMA LONG Comment: 2.5cm low density lseion in bodyMay 2014 Entered By: PADMA LONG Comment: question of communication with pancreatic ductMay 2014 Entered By: PADMA LONG Comment: favored to be cystic pancreatic cancerMa2014 Entered By: PADMA LONG Comment: per abdominal CT 09/01/14, via abida meneses ks FRAZIER, JAY J [facility] Dry eyes Active 181529472 COLINNEDA [facility] Gastro-esophageal reflux disease without esophagitis ( SNOMED CT 959554535) Active 226460980 ALF GUEVARA [facility] History of malignant neoplasm of lung Active 207379049 ESTEVANCHAPO Lares [facility] Hyperlipidemia (SNOMED CT 29804604) Active 92325108 PAMELA RAMSEY [facility] Lung mass Active 383628295 September 08, 2014 E ntered By: PADMA [...] report- mod. differentiated bronchogenic adenoca. 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 Active 06465115 KATHERINE MATT [facility] Obesity Active 326167976 [facility] Obstructive sleep apnea syndrome (SNOMED CT 69272231) Active 532851 015 [place] [facility] Pancreatic cyst Active 33599897 JAYLENE GUEVARA [facility] Papilloma of right eyelid Active [id number] NEDA SHAW [facility] Polyp of colon Active 27415411 Jan 23 16 Entered By: PADMA LONG Comment: c-scope 01/17/16, multiple benign colonic polypsJun 28, 2017 Entered By: PADMA LONG Comment: c-scope,06/25/17,[facility], three benign polyps- sigmoid colon, transverse colon,cecum. see path report cprs SHARRON TORRES [facility] Pulmonary emphysema Active [id number] 0 BRIANA GAVIN [facility] Sensorineural hearing loss, bilateral Active 267101958 CHASTITY JEAN [facility] Snoring Active 96190171 [place] [facility] Type 2 diabetes mellitus without complication Active 831272683 [facility]A SHAW [facility] [place] [facility] Environmental Allergies (ICD-9-CM 477.9) Inactive 477.9 Dec 18, 2017 [facility] External hemorrhoids without mention of complication (ICD-9- CM 455.3) Inactive 455.3 Dec 18, 2017 [facility] Impotence of organic origin (ICD-9-CM 607.84) Inactive 607.84 Dec 18, 2017 [facility] Screening for Lipoid disorders (ICD-9-CM V77.91) Inactive V77.91 Jan 18, 2007 [facility] Stye * (ICD-9-CM 373.11) Inactive 373.11 Dec 18, 201 8 Jan 18, 2007 Entered By: PADMA LONG Comment: bilat lower lids, chronic/recurrent PADMA LONG [facility] Tobacco Use Disorder, Continuous [...] back pain. Asked if can get through [facility]. He can be reached at: [phone] /es/ [place] APPLE RN BSN Signed: 01/15/2019 11:32 Receipt Acknowledged By: * AWAITING SIGNATURE * ANA CONKLIN JESSICA L ARTUR J. DOLE [facility]
--- OUTSIDE RECORDS SUMMARY | 2019-12-02 07:30 | XMS REPORT | Encounter Summary ---
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 Date/Time Encounter Type Encounter Description Reason Provider Source Mar 21, 2019 10:00 AM Outpatient Encounter SLEEP MEDICINE [facility] 15 IHE Encounter Template Text not used by [place] Assessments - Encounter Diagnoses No Data Provided [...] appointme nts. The data comes from all [place] treatment facilities. Appointment Date/Time Appointment Type Appointment Facili ty Name Mar 26, 2019 10:00 AM AMBULATORY - NONE [facility] Apr 03, 2019 10:00 AM AMBULATORY - SURGERY [facility] Apr 14, 2019 10:00 AM AMBULATORY - SURGERY [facility] Apr 28, 2019 11:00 AM AMBULATORY - NONE [facility] Jun 25, 2019 11:30 AM AMBULATORY - NONE [facility] Jun 25, 2019 01:15 PM AMBULATORY - MEDICINE [facility] Jul 23, 2019 11:00 [facility], [facility] 08:00 AM AM[facility]ULATORY - NONE [facility] Aug 07, 2019 10:30 AM AMBULATORY - MEDICINE [facility] Active, Pending, and Scheduled Orders This section [...] the Encounter. The data comes from all [place] treatment facilities. Test Date/Time Test Type Test Details Facility Name Apr 01, 2019 10:33 AM Consult Order [facility] PULMONARY-[id number] Cons Building Performance Specialist's Choice [facility] Surgical [...] Range Comment Mar 21, 2019 08:55 AM [facility] HEMOGLOBIN A1C Specimen Type: BLOOD No [...] Adverse Reactions (ADR s) on record with [place] for the patient. The data comes from a ll [place] treatment facilities. It does not list Allergies/ADRs that were removed or entered in error. Some allergies/ADRs may be reported in t he Immunization section. Allergen Event Date Event Type Reaction(s) Severity Source [place] September 08, 2014 Propensity to adverse reactions to drug (diso rder) [facility] 15 [place] September 08, 2014 Propensity to adverse reactions to drug (diso rder) [facility] Medications: [facility] dispensed (-15 months) and Non-VA Documented (Obtained Outside V A) Section Date Range: 1) prescriptions processed by a [facility] pharmacy in the last [facility], and 2) all medications recorded in the [place] medical record as "non-VA medic ations". Pharmacy terms refer to [place] pharmacy's work on prescriptions. VA patient s [...] TEST BLOOD GLUCOSE 50 Dec 19, 2019 [id number] September 04, 2019 PAMELA RAMSEY [facility] ACCU-CHEK CHARLES PLUS (GLUCOSE) TEST STRIP Discontinued USE 1 STRIP FOR TESTING TWO TIMES PER WEEK - DIRECTED TO TEST BLOOD GLUCOSE 50 Jul 25, 2019 [id number] Nov 12, 2018 PAMELA RAMSEY ALBUTEROL SO4 90MCG/ACTUAT (CFC-F) INHL,ORAL,6.7GM Active INHALE 2 PUFFS BY ORAL INHALATION EVERY 4 HOURS NEEDED FOR BREATHING. SHAKE WELL. RINSE MOUTHPIECE FREQUENTLY TO PREVENT CLOGGING. USE NEEDED FOR SHORTNESS OF AIR/WHEEZING FOR BREATHING. SHAKE WELL. RINSE MOUTHPIECE FREQUENTLY TO PREVENT CLOGGING. USE NEEDED FOR SHORTNESS OF AIR/WHEEZING 1 Dec 19, 2019 [id number] September 04, 2019 PAMELA RAMSEY ALCOHOL PREP PAD Active USE 1 PAD ON SKIN BIW TO CLEAN AND DISINFECT THE SKIN 200 Sep 29, 2020 [id number] Sep 30, 2019 MAURICIO RANKIN [facility] ALCOHOL PREP PAD Discontinued USE 1 PAD ON SKIN BI W TO CLEAN AND DISINFECT THE SKIN 200 Dec 19, 2019 [id number] Jun 06, 2019 PAMELA RAMSEY CBGUILLERMO ALCOHOL PREP PAD Discontinued USE 1 PAD ON SKIN BI W TO CLEAN AND DISINFECT THE SKIN 200 Jul 25, 2019 [id number] Nov 12, 2018 PAMELA RAMSEY ASCORBIC ACID 250MG TAB Non-VA TAKE ONE TABLET BY MOUTH ONCE A DAY Non-VA Documented by: SHANIQUA SCHMIDT nted at: [facility] ASPIRIN 25MG/DIPYRIDAMOLE 200MG CAP,SA Active T CHAPIN 1 CAPSULE BY MOUTH TWO TIMES A DAY - SWALLOW WHOLE. DO NOT CRUSH OR CHEW. FOR RECURRENT TIA/STROKE 180 Dec 19, 2019 [id number] Dec 20, 2018 PAMELA RAMSEY ASPIRIN 25MG/DIPYRIDAMOLE 200MG CAP,SA Discontinued T CHAPIN 1 CAPSULE BY MOUTH TWO TIMES A DAY - SWALLOW WHOLE. DO NOT CRUSH OR CHEW. FOR RECURRENT TIA/STROKE 180 Feb 06, 2019 [id number] Sep 28, 2018 ZACHARY GRECO [facility] ASPIRIN 81MG TAB,EC Non- [place] TAKE ONE TABLET BY MOUTH ONCE A DAY Non-VA Documented by: PADMA LONG nted at: [facility] ATORVASTATIN CA 80MG TAB Active TAKE ONE TABLET BY MOUTH AT BEDTIME FOR CHOLESTEROL - REPORT ANY UNEXPLAINED MUSCLE PAIN/WEAKNESS TO YOUR PROVIDER 90 Dec 19, 2019 [id number] September 04, 2019 PAMELA RAMSEY ATORVASTATIN CA 80MG TAB Discontinued TAKE ONE TABLET BY MOUTH AT BEDTIME FOR CHOLESTEROL - REPORT ANY UNEXPLAINED MUSCLE PAIN/WEAKNESS TO YOUR PROVIDER 90 Dec 20, 2018 [id number] Nov 12, 2018 PAMELA RAMSEY BUDESONIDE 160MCG/FORMOTEROL FUM 4.5MCG/SPRAY INHL,ORAL,10.2 GM Active INHALE 2 PUFFS BY MOUTH TWO TIMES A DAY FOR BREATHING. SHAKE WELL. RINSE MOUTH AND SPIT AFTER EACH USE. 3 Apr 24, 2020 [id number] August 22, 2019 LISSA OATES [facility] CALCIUM/VITAMIN D TAB No n-VA TAKE BY MOUTH ONCE A DAY Non-V A Documented by: PADMA LONG nted at: [facility] CARBOXYMETHYLCELLULOSE NA 0.5% SOLN,OPH Active INSTILL ONE DROP IN BOTH EYES FOUR TIMES A DAY FOR DRY EYES 15 Feb 01, 2020 [id number] September 03 0 NEDA SHAW [facility] DICLOFENAC NA 1% GEL,TOP Discontinued APPLY 2 GRAMS A FFECTED AREA TWO TIMES A DAY NEEDED FOR PAIN AND INFLAMMATION. DO NOT EXCEED 16GM DAILY TO ANY AFFECTED JOINT OF LOWER EXTREMITIES. DO NOT EXCEED 8GM DAILY TO ANY AFFECTED JOINT OF UPPER EXTREMITES. DO NOT EXCEED TOTAL DOSE OF 32GM DAILY FOR ALL JOINTS. 100 Oct 31, 2018 [id number] Oct 06, 2018 ANAYELI KIRKPATRICK [facility] [...] FOR ALL JOINTS. 100 Jan 17, 2019 [id number] Dec 20, 2018 PAMELA RAMSEY FLUTICASONE PROPIONATE 50MCG/SPRAY SOLN,NASAL,16GM Active INSTILL 1 SPRAY IN EACH NOSTRIL ONCE A DAY SHAKE GENTLY BEFORE USE! - MUST BE USED DIRECTED FOR 3 WEEKS TO PROVIDE BENEFIT. * NO EARLY REFILLS * 1UNIT = 30DAYS AT 4 PF/DAY OR 60DAYS AT 2PF/DAY 2 Dec 19, 2019 [id number] August 26, 2019 PAMELA RAMSEY KETOTIFEN 0.025% SOLN,OPH Active INSTILL 1 DROP IN BOTH EYES TWO TIMES A DAY FOR RELIEF OF ALLERGY SYMPTOMS IN EYE(S) Feb 01, 2020 [id number] September 04, 2019 NEDA SHAW [facility] LANCET,SOFTCLIX Active USE LANCET BIW FOR TESTING BL OOD GLUCOSE DIRECTED 100 Sep 29, 2020 [id number] Sep 30, 2019 [facility]IO RAKNIN [facility] LANCET,SOFTCLIX Discontinued USE LANCET BIW FO R TESTING BLOOD GLUCOSE DIRECTED 100 Dec 19, 2019 [id number] Jun 06, 2019 PAMELA RAMSEY LANCET,SOFTCLIX Discontinued USE LANCET BIW FO R TESTING BLOOD GLUCOSE DIRECTED Jul 25, 2019 [id number] Nov 12, 2018 PAMELA RAMSEY LISINOPRIL 40MG TAB Non- [place] TAKE ONE-HALF TABLET BY MOUTH EVERY MORNING Non-VA Documented by: PAMELA RAMSEY nted at: [facility] LORATADINE/PSEUDOEPHEDRINE TAB,SA Non-VA TAKE BY MOUTH No n-VA Documented by: JUAN LANGume nted at: [facility] MAGNESIUM OXIDE 400MG TAB Non-VA TAKE [...] ACID (REPLACES ACIPHEX) 180 Dec 19, 2019 [id number] August 26, 2019 PAMELA RAMSEY POLYETHYLENE GLYCOL 3350 PWDR,ORAL Non-VA TAKE 1 CAPFUL (17GM) BY MOUTH ONCE A DAY Non-VA Documented by: SHANIQUA SCHMIDT Docume nted at: [facility] POTASSIUM GLUCONATE TAB Non-VA TAKE 90 MG BY MOUTH ONCE A DAY N on-VA Documented by: SHANIQUA SCHMIDT Docume nted at: [facility] PRASUGREL HCL 10MG TAB N on-VA TAKE ONE TABLET BY MOUTH ONCE A DAY Non-VA Documented by: KATHERINE MATT Docume nted at: [facility] PREGABALIN 150MG CAP,ORAL Non-VA TAKE 1 CAPSULE BY MOUTH TWO TIMES A DAY Non-VA Docume nted by: PAMELA RAMSEY Docume nted at: [facility] SEMAGLUTIDE INJ,SOLN Non -VA INJECT SUBCUTANEOUSLY EVERY WEEK Non-VA Documented by: ANAYELI KIRKPATRICK Docume nted at: [facility] TERBINAFINE HCL 1% CREAM,TOP Active APPLY LIGHT LY TO AFFECTED AREA TWO TIMES A DAY FOR INFECTION Sep 23, 2020 [id number] Sep 24, 2019 ADRIEL HERNANDEZ UREA 20% CREAM,TOP Active APPLY LIGHTLY (20%) TO AFFECTED AREA TWO TIMES A DAY NEEDED TO PROMOTE HEALING,RUB IN UNTIL COMPLETELY ABSORBED*FOR TOPICAL USE ONLY* APPLY TO BOTH FEET DIRECTED. Sep 25, 2020 [id number] Sep 26, 2019 ADRIEL HERNANDEZ Problems (Conditions): [...] Alcohol intake above recommended sensible limits Active 675320147 [facility] Allergic conjunctivitis Active 746279276 N[facility] SHAW [facility] Bilateral senile combined form cataracts of eyes Active 22843412941 9108 [facility] Bilateral tinnitus Active [id number] [facility] Coronary arteriosclerosis Active 17950725 September 08, 2014 Entered By: PADMA LONG Comment: hx of ptca to RCA several yrs. agoSeptember 08, 2014 Entered By: PADMA LONG Comment: heart cath 09/01/14, neg. / previous stent to RCA,, via abida meneses ks HATCHER, JENNEY R [facility] Diabetes mellitus Active 25385304 PAMELA RAMSEY [facility] Disorder of pancreas Active 9593234 September 08, 2014 Entered By: PADMA LONG Comment: 2.5cm low density lseion in bodyMay 2014 Entered By: PADMA LONG Comment: question of communication with pancreatic ductMa2014 Entered By: PADMA LONG Comment: favored to be cystic pancreatic cancerSeptember 08, 2014 Entered By: PADMA LONG Comment: per abdominal CT 09/01/14, via abida meneses ks FRAZIER, JAY J [facility] Dry eyes Active 927992421 NEDA SHAW [facility] Gastro-esophageal reflux disease without esophagitis ( SNOMED CT 094010011) Active 301860394 ALF GUEVARA [facility] History of malignant neoplasm of lung Active 638420949 CHAPO BARRETO [facility] Hyperlipidemia (SNOMED CT 46078005) Active 79946196 PAMELA RAMSEY [facility] Lung mass Active 895419718 September 08, 2014 E ntered By: PADMA LONG Comment: 4.5 cm mass, post. segment right upper lobe.September 08, 2014 Entered By: PADMA LONG Comment: mild adenopathy in mediastinum and bilat. hilaMa2014 Entered By: PADMA LONG Comment: most likely related to lung cancerSeptember 08, 2014 Entered By: PADMA LONG Comment: per ct angio of chest with contrast 09/01/14,via abida menesesprJun 2014 Entered By: PADMA LONG Comment: per path report- mod. differentiated bronchogenic adenoca. 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 Active 77554060 KATHERINE MATT [facility] Obesity Active 842095371 SONG BULLOCK [facility] Obstructive sleep apnea syndrome (SNOMED CT 12314112) Active 297465 015 PHILIPPE DOUGLASS [facility] Pancreatic cyst Active 99709342 JAYLENE GUEVARA [facility] Papilloma of right eyelid Active 931546028814617 NEDA SHAW [facility] Polyp of colon Active 83284270 Jan 23 Entered By: PADMA LONG Comment: c-scope 01/17/16, multiple benign colonic polypsJun 28, 2017 Entered By: PADMA OLNG Comment: c-scope,06/25/17,mt-[facility], three benign polyps- sigmoid colon, transverse colon,cecum. see path report cprs SHARRON TORRES [facility] Pulmonary emphysema Active 31554796 0 BRIANA GAVIN [facility] Sensorineural hearing loss, bilateral Active 953913623 CHASTITY JEAN [facility] Snoring Active 78425622 SONG BULLOCK [facility] Type 2 diabetes mellitus without complication Active 406171950 NEDA SHAW [facility] Environmental Allergies (ICD-9-CM 477.9) Inactive 477.9 Dec 18, 2017 PADMA LONG [facility] External hemorrhoids without mention of complication (ICD-9- CM 455.3) Inactive 455.3 Dec 18, 2017 PADMA LONG [facility] Impotence of organic origin (ICD-9-CM 607.84) Inactive 607.84 Dec 18, 2017 PADMA LONG [facility] Screening for Lipoid disorders (ICD-9-CM V77.91) Inactive V77.91 Jan 18, 2007 PADMA LONG [facility] Stye * (ICD-9-CM 373.11) Inactive 373.11 Dec 18, 201 8 Jan 18, 2007 Entered By: PADMA LONG Comment: bilat lower lids, chronic/recurrent PADMA LONG [facility] Tobacco Use Disorder, Continuous Inactive 305.1 Dec 18, 2017 Jan 18, 2007 Entered By: PADMA LONG Comment: one ppd PADMA LONG [facility] Radiology Reports: +/- 30 days of [...] Encounter. The data comes from all [facility] facilities. Date/Time Pathology Report Provider [...] 11:11) Microscopic examination is performed. DIAGNOSIS: Specimen: [id number] Spec Type: SURGICAL Abdulkadir: 04/03/19 Rec: 04/03/19-1241 PATHOLOGIC DIAGNOSIS Skin lesion, right upper cheek, biopsy: 1. Seborrheic keratosis, not involving resection margins. 2. Solar elastosis. Skin lesion, right lower mid margin, biopsy: 1. Seborrheic keratosis, with tumor at tissue edge/margin, but with benign features. LL COPIES TO: KATHERINE MATT [facility] PATHOLOGIST CODES: 25546/2 at 1235 The gross and microscopic examinations and interpretation were performed at [facility] Department of Pathology, [address] [place] [id number]. Slides and paraffin blocks are on file at [facility]. =--=--=--=--=--=--=--=--=--=--=--=--=--=--=--=--=--=--=--=--=--=--=--=--=--=-- Performing Laboratory: Surgical Pathology Report Performed By: [facility] [CLIA# [id number]] [address] [place] [id number] [address] [facility] 15 Encounter Notes: All associated encounter notes No Data Provided for This Section
--- OUTSIDE RECORDS SUMMARY | 2019-12-02 07:30 | XMS REPORT | Encounter Summary ---
Author Author Department [facility] HERBERTH kline Organization Department of [facility] Address [address] [place] [address] Phone Unavailable Care Team Providers Care Nuclear Medical Tech Name Role Phone ADRIEL HERNANDEZ PCP Unavailable Insurance Providers: All historical and current No Data Provided for This Section Selected Encounter This section includes the information on record at [place] for the Encounter. Date/Time Encounter Type Encounter Description Reason Provider Source Mar 21, 2019 09:30 AM Outpatient Encounter SLEEP MEDICINE [facility] 15 IHE Encounter Template Text [...] 26, 2019 10:00 AM AMBULATORY - NONE ARTRU BLAS [facility] C Apr 03, 2019 10:00 AM AMBULATORY - SURGERY ARTUR CARRASQUILLO Apr 14, 2019 10:00 AM AMBULATORY - SURGERY [facility] Apr 28, 2019 11:00 AM AMBULATORY - NONE ARTUR BLAS [facility] Jun 25, 2019 11:30 AM AMBULATORY - NONE ARTUR BLAS [facility] Jun 25, 2019 01:15 PM AMBULATORY - MEDICINE ARTUR BLAS [facility] Jul 23, 2019 11:00 AM [facility] Jul 25, 2019 08:00 AM AMBULATORY - NONE ARTUR BLAS [facility] Aug 07, 2019 10:30 AM AMBULATORY - MEDICINE ARTUR BLAS [facility] Active, Pending, and Scheduled Orders This section [...] Apr 01, 2019 10:33 AM Consult Order [facility] PULMONARY-[id number] Cons Public Health Social Worker's Choice [facility] Surgical Procedures: All [...] Range Comment Mar 21, 2019 08:55 AM [facility] HEMOGLOBIN A1C Specimen Type: BLOOD No [...] adverse reactions to drug (diso rder) [facility] 15 [place] September 08, 2014 Propensity to adverse reactions to drug (diso rder) [facility] Medications: [facility] dispensed (-15 months) and Non-VA Documented (Obtained Outside V A) Section Date Range: 1) prescriptions processed by a [facility] pharmacy in the last 15 m [facility], and 2) all medications recorded [...] TEST BLOOD GLUCOSE 50 Dec 19, 2019 [id number] September 04, 2019 PAMELA RAMSEY [facility] ACCU-CHEK CHARLES PLUS (GLUCOSE) TEST STRIP Discontinued USE 1 STRIP FOR TESTING TWO TIMES PER WEEK - DIRECTED TO TEST BLOOD GLUCOSE 50 Jul 25, 2019 [id number] Nov 12, 2018 PAMELA RAMSEY ALBUTEROL SO4 90MCG/ACTUAT (CFC-F) INHL,ORAL,6.7GM Active INHALE 2 PUFFS BY ORAL INHALATION EVERY 4 HOURS NEEDED FOR BREATHING. SHAKE WELL. RINSE MOUTHPIECE FREQUENTLY TO PREVENT CLOGGING. USE NEEDED FOR SHORTNESS OF AIR/WHEEZING FOR BREATHING. SHAKE WELL. RINSE MOUTHPIECE FREQUENTLY TO PREVENT CLOGGING. USE NEEDED FOR SHORTNESS OF AIR/WHEEZING 1 Dec 19, 2019 [id number] September 04, 2019 PAMELA RAMSEY ALCOHOL PREP PAD Active USE 1 PAD ON SKIN BIW TO CLEAN AND DISINFECT THE SKIN 200 Sep 29, 2020 [id number] Sep 30, 2019 MAURICIO RANKIN [facility] ALCOHOL PREP PAD Discontinued USE 1 PAD ON SKIN BI W TO CLEAN AND DISINFECT THE SKIN 200 Dec 19, 2019 [id number] Jun 06, 2019 PAMELA RAMSEY CBGUILLERMO ALCOHOL PREP PAD Discontinued USE 1 PAD ON SKIN BI W TO CLEAN AND DISINFECT THE SKIN 200 Jul 25, 2019 [id number] Nov 12, 2018 PAMELA RAMSEY ASCORBIC ACID 250MG TAB Non-VA TAKE ONE TABLET BY MOUTH ONCE A DAY Non-VA Documented by: SHANIQUA SCHMIDT nted at: [facility] ASPIRIN 25MG/DIPYRIDAMOLE 200MG CAP,SA Active T CHAPIN 1 CAPSULE BY MOUTH TWO TIMES A DAY - SWALLOW WHOLE. DO NOT CRUSH OR CHEW. FOR RECURRENT TIA/STROKE 180 Dec 19, 2019 [id number] Dec 20, 2018 PAMELA RAMSEY ASPIRIN 25MG/DIPYRIDAMOLE 200MG CAP,SA Discontinued T CHAPIN 1 CAPSULE BY MOUTH TWO TIMES A DAY - SWALLOW WHOLE. DO NOT CRUSH OR CHEW. FOR RECURRENT TIA/STROKE 180 Feb 06, 2019 [id number] Sep 28, 2018 ZACHARY GRECO [facility] ASPIRIN 81MG TAB,EC Non- VA TAKE ONE TABLET BY MOUTH ONCE A DAY Non-VA Documented by: PADMA LONG nted at: [facility] ATORVASTATIN CA 80MG TAB Active TAKE ONE TABLET BY MOUTH AT BEDTIME FOR CHOLESTEROL - REPORT ANY UNEXPLAINED MUSCLE PAIN/WEAKNESS TO YOUR PROVIDER 90 Dec 19, 2019 [id number] September 04, 2019 PMAELA RAMSEY ATORVASTATIN CA 80MG TAB Discontinued TAKE ONE TABLET BY MOUTH AT BEDTIME FOR CHOLESTEROL - REPORT ANY UNEXPLAINED MUSCLE PAIN/WEAKNESS TO YOUR PROVIDER 90 Dec 20, 2018 [id number] Nov 12, 2018 PAMELA RAMSEY BUDESONIDE 160MCG/FORMOTEROL FUM 4.5MCG/SPRAY INHL,ORAL,10.2 GM Active INHALE 2 PUFFS BY MOUTH TWO TIMES A DAY FOR BREATHING. SHAKE WELL. RINSE MOUTH AND SPIT AFTER EACH USE. 3 Apr 24, 2020 [id number] August 22, 2019 LISSA OATES [facility] CALCIUM/VITAMIN D TAB No n-VA TAKE BY MOUTH ONCE A DAY Non-V A Documented by: PADMA LONG nted at: [facility] CARBOXYMETHYLCELLULOSE NA 0.5% SOLN,OPH Active INSTILL ONE DROP IN BOTH EYES FOUR TIMES A DAY FOR DRY EYES 15 Feb 01, 2020 [id number] September 03 0 N[place] SHAW [facility] DICLOFENAC NA 1% GEL,TOP Discontinued APPLY 2 GRAMS A FFECTED AREA TWO TIMES A DAY NEEDED FOR PAIN AND INFLAMMATION. DO NOT EXCEED 16GM DAILY TO ANY AFFECTED JOINT OF LOWER EXTREMITIES. DO NOT EXCEED 8GM DAILY TO ANY AFFECTED JOINT OF UPPER EXTREMITES. DO NOT EXCEED TOTAL DOSE OF 32GM DAILY FOR ALL JOINTS. 100 Oct 31, 2018 [id number] Oct 06, 2018 ANAYELI KIRKPATRICK [facility] [...] FOR ALL JOINTS. 100 Jan 17, 2019 [id number] Dec 20, 2018 PAMELA RAMSEY FLUTICASONE PROPIONATE 50MCG/SPRAY SOLN,NASAL,16GM Active INSTILL 1 SPRAY IN EACH NOSTRIL ONCE A DAY SHAKE GENTLY BEFORE USE! - MUST BE USED DIRECTED FOR 3 WEEKS TO PROVIDE BENEFIT. * NO EARLY REFILLS * 1UNIT = 30DAYS AT 4 PF/DAY OR 60DAYS AT 2PF/DAY 2 Dec 19, 2019 [id number] August 26, 2019 PAMELA RAMSEY KETOTIFEN 0.025% SOLN,OPH Active INSTILL 1 DROP IN BOTH EYES TWO TIMES A DAY FOR RELIEF OF ALLERGY SYMPTOMS IN EYE(S) Feb 01, 2020 [id number] September 04, 2019 N[place] SHAW [facility] LANCET,SOFTCLIX Active USE LANCET BIW FOR TESTING BL OOD GLUCOSE DIRECTED 100 Sep 29, 2020 [id number] Sep 30, 2019 MAURICIO RANKIN [facility] LANCET,SOFTCLIX Discontinued USE LANCET BIW FO R TESTING BLOOD GLUCOSE DIRECTED 100 Dec 19, 2019 [id number] Jun 06, 2019 PAMELA RAMSEY LANCET,SOFTCLIX Discontinued USE LANCET BIW FO R TESTING BLOOD GLUCOSE DIRECTED Jul 25, 2019 [id number] Nov 12, 2018 PAMELA RAMSEY LISINOPRIL 40MG TAB Non- VA TAKE ONE-HALF TABLET BY MOUTH EVERY MORNING Non-VA Documented by: PAMELA RAMSEY nted at: [facility] LORATADINE/PSEUDOEPHEDRINE TAB,SA Non-VA TAKE BY MOUTH No n-VA Documented by: JUAN LANGume nted at: ARTUR BLAS [facility] MAGNESIUM OXIDE 400MG TAB Non-VA TAKE [...] ACID (REPLACES ACIPHEX) 180 Dec 19, 2019 [id number] August 26, 2019 PAMELA RMASEY POLYETHYLENE GLYCOL 3350 PWDR,ORAL Non-VA TAKE 1 [...] MOUTH ONCE A DAY Non-VA Documented by: KATHERNIE MATT Docume nted at: [facility] PREGABALIN 150MG CAP,ORAL Non-VA TAKE 1 CAPSULE BY MOUTH TWO TIMES A DAY Non-VA Docume nted by: PAMELA RAMSEY Docume nted at: [facility] SEMAGLUTIDE INJ,SOLN Non -VA INJECT SUBCUTANEOUSLY EVERY WEEK Non-VA Documented by: ANAYELI KIRKPATRICK Docume nted at: [facility] TERBINAFINE HCL 1% CREAM,TOP Active APPLY LIGHT LY TO AFFECTED AREA TWO TIMES A DAY FOR INFECTION Sep 23, 2020 [id number] Sep 24, 2019 ADRIEL HERNANDEZ UREA 20% CREAM,TOP Active APPLY LIGHTLY (20%) TO AFFECTED AREA TWO TIMES A DAY NEEDED TO PROMOTE HEALING,RUB IN UNTIL COMPLETELY ABSORBED*FOR TOPICAL USE ONLY* APPLY TO BOTH FEET DIRECTED. Sep 25, 2020 [id number] Sep 26, 2019 ADRIEL HERNANDEZ Problems (Conditions): [...] Alcohol intake above recommended sensible limits Active 944134488 [facility]ADMA LONG [facility] Allergic conjunctivitis Active 316941193 NEDA SHAW [facility] Bilateral senile combined form cataracts of eyes Active 16209641449 9108 N[place]A SHAW [facility] Bilateral tinnitus Active 6694316274646 [facility] Coronary arteriosclerosis Active 35442741 September 08, 2014 Entered By: PADMA LONG Comment: hx of ptca to RCA several yrs. agoSeptember 08, 2014 Entered By: PADMA LONG Comment: heart cath 09/01/14, neg. / previous stent to RCA,, via abida meneses [place]s HATCHER, JENNEY R [facility] Diabetes mellitus Active 97910958 PAMELA RAMSEY [facility] Disorder of pancreas Active 7173337 September 08, 2014 Entered By: PADMA LONG Comment: 2.5cm low density lseion in bodyMay 2014 Entered By: PADMA LONG Comment: question of communication with pancreatic ductMa2014 Entered By: PADMA LONG Comment: favored to be cystic pancreatic cancerSeptember 08, 2014 Entered By: PADMA LONG Comment: per abdominal CT 09/01/14, via abida meneses ks FRAZIER, JAY J [facility] Dry eyes Active 029130546 NEDA SHAW [facility] Gastro-esophageal reflux disease without esophagitis ( SNOMED CT 091127108) Active 684125075 ALF GUEVARA [facility] History of malignant neoplasm of lung Active 762245964 CHAPO BARRETO [facility] Hyperlipidemia (SNOMED CT 46836565) Active 07797999 PAMELA RASMEY [facility] Lung mass Active 417783710 September 08, 2014 E ntered By: PADMA LONG Comment: 4.5 cm mass, post. segment right upper lobe.September 08, 2014 Entered By: PADMA LONG Comment: mild adenopathy in mediastinum and bilat. hilaMa2014 Entered By: PADMA LONG Comment: most likely related to lung cancerSeptember 08, 2014 Entered By: PADMA LONG Comment: per ct angio of chest with contrast 09/01/14,via abida menesesneJun 2014 Entered By: PADMA LONG Comment: per path report- mod. differentiated bronchogenic adenoca. 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 Active 65220804 KATHERINE MATT [facility] Obesity Active 234713894 [facility] Obstructive sleep apnea syndrome (SNOMED CT 71633264) Active 870760 015 [place] [facility] Pancreatic cyst Active 47224812 JAYLENE GUEVARA [facility] Papilloma of right eyelid Active 105030994402460 N[place] SHAW [facility] Polyp of colon Active 27735623 Jan 23 Entered By: PADMA LONG Comment: c-scope 01/17/16, multiple benign colonic polypsJun 28, 2017 Entered By: PADMA LONG Comment: c-scope,06/25/17,[facility], three benign polyps- sigmoid colon, transverse colon,cecum. see path report cprs SHARRON TORRES [facility] Pulmonary emphysema Active 59821312 0 BRIANA GAVIN [facility] Sensorineural hearing loss, bilateral Active 354754496 CHASTITY JEAN [facility] Snoring Active 77001718 [place] [facility] Type 2 diabetes mellitus without complication Active 254368529 N[place] SHAW [facility] Environmental Allergies (ICD-9-CM 477.9) Inactive 477.9 Dec 18, 2017 PADMA LONG [facility] External hemorrhoids without mention of complication (ICD-9- CM 455.3) Inactive 455.3 Dec 18, 2017 PADMA LONG [facility] Impotence of organic origin (ICD-9-CM 607.84) Inactive 607.84 Dec 18, 2017 PADMA LONG [facility] Screening for Lipoid disorders (ICD-9-CM V77.91) Inactive V77.91 Jan 18, 2007 PADMA LONG [facility] Stye * (ICD-9-CM 373.11) Inactive 373.11 Dec 18, 201 8 Jan 18, 2007 Entered By: PADMA LONG Comment: bilat lower lids, chronic/recurrent PADMA LONG [facility] Tobacco Use Disorder, [...] the Encounter. The data comes from all [facility] facilities. Date/Time Pathology Report Provider Source Apr [...] 11:11) Microscopic examination is performed. DIAGNOSIS: Specimen: [id number] Spec Type: SURGICAL Abdulkadir: 04/03/19 Rec: 04/03/19-1241 PATHOLOGIC DIAGNOSIS Skin lesion, right upper cheek, biopsy: 1. Seborrheic keratosis, not involving resection margins. 2. Solar elastosis. Skin lesion, right lower mid margin, biopsy: 1. Seborrheic keratosis, with tumor at tissue edge/margin, but with benign features. LL COPIES TO: KATHERINE MATT [facility] PATHOLOGIST CODES: 41432/2 at 1235 The gross and microscopic examinations and interpretation were performed at [facility] Department of Pathology, [address] [place] [id number]. Slides and paraffin blocks are on file at [facility]. =--=--=--=--=--=--=--=--=--=--=--=--=--=--=--=--=--=--=--=--=--=--=--=--=--=-- Performing Laboratory: Surgical Pathology Report Performed By: [CLIA# [id number]] [address] [place] [id number] [facility] [facility] 15 Encounter Notes: All associated encounter notes No Data Provided for This Section
--- OUTSIDE RECORDS SUMMARY | 2019-12-02 07:30 | XMS REPORT | Encounter Summary ---
Author Author [facility] Organization Department of [facility] Address [address] [place] [address] Phone Unavailable Care Team Providers Care Deodorizer Operator Name Role Phone MARYADRIEL YAN PCP Unavailable Insurance Providers: All historical and current No Data Provided for This Section Selected Encounter This section includes the information on record at [place] for the Encounter. Date/Time Encounter Type Encounter Description Reason Provider Source Jan 22, 2019 02:08 PM Outpatient Encounter ADMIN PAT ACTIVTIES (MASVIELKA NCT) ARTUR BLAS [facility] IHE Encounter Template Text not used [...] 31, 2019 09:00 AM AMBULATORY - MEDICINE [facility] Mar 10, 2019 12:30 PM AMBULATORY - SURGERY [facility] Mar 21, 2019 09:15 AM AMBULATORY - NONE [facility] Mar 21, 2019 09:30 AM AM[facility]UL[facility]ORY - MEDICINE [facility] Mar 21, 2019 09:31 AM AMBULATORY - MEDICINE ARTUR BLAS [facility] [place] Mar 21, 2019 10:00 AM AMBULATORY - MEDICINE [facility] Mar 21, 2019 10:01 AM AMBULATORY - MEDICINE ARTUR [place] LEVIMila Maite [place] Mar 26, 2019 10:00 AM [facility] N[facility] Apr 03, 2019 10:00 AM [facility]UL[facility] - SURGERY ARTUR BLAS [facility] Apr 14, 2019 10:00 AM AMBULATORY - SURGERY [facility] Apr 28, 2019 11:00 AM AMBULATORY - NONE ARTUR BLAS [place] Jun 25, 2019 11:30 AM AMBULATORY - NONE ARTUR [place] Jun 25, 2019 01:15 PM AMBULATORY - MEDICINE ARTUR BLAS [facility] [place] Jul 23, 2019 11:00 AM AMBULATORY - NONE [facility] Surgical Procedures: All associated to the encounter [...] QUIT 15 YRS OR MORE PORSHA BLAS [facility] Tobacco Use History This section includes a history of the smoking, or tobacco -related health factors, that were collected on or before the date of the Encoun ter. The data comes from the [place] facility where the Encounter took place. Date/Time Smoking Status/Tobacco Use Comment [facility] Jun 26, 2018 02:13 PM AL-TOBACCO QUIT 15 YRS OR MORE PORSHA BALS [facility] Jun 27, 2017 01:39 PM NON-TOBACCO USER [facility] Jun 27, 2017 01:16 PM NON-TOBACCO USER [...] to adverse reactions to drug (diso rder) [facility] 15 PLAVIX September 08, 2014 Propensity to adverse reactions to drug (diso rder) [facility] 15 Medications: [facility] dispensed [...] TEST BLOOD GLUCOSE 50 Dec 19, 2019 [id number] September 04, 2019 PAMELA RAMSEY ACCU-CHEK CHARLES PLUS (GLUCOSE) TEST STRIP Discontinued USE 1 STRIP FOR TESTING TWO TIMES PER WEEK - DIRECTED TO TEST BLOOD GLUCOSE 50 Jul 25, 2019 [id number] Nov 12, 2018 PAMELA RAMSEY ALBUTEROL SO4 90MCG/ACTUAT (CFC-F) INHL,ORAL,6.7GM Active INHALE 2 PUFFS BY ORAL INHALATION EVERY 4 HOURS NEEDED FOR BREATHING. SHAKE WELL. RINSE MOUTHPIECE FREQUENTLY TO PREVENT CLOGGING. USE NEEDED FOR SHORTNESS OF AIR/WHEEZING FOR BREATHING. SHAKE WELL. RINSE MOUTHPIECE FREQUENTLY TO PREVENT CLOGGING. USE NEEDED FOR SHORTNESS OF AIR/WHEEZING 1 Dec 19, 2019 [id number] September 04, 2019 PAMELA RAMSEY ALCOHOL PREP PAD Active USE 1 PAD ON SKIN BIW TO CLEAN AND DISINFECT THE SKIN 200 Sep 29, 2020 [id number] Sep 30, 2019 MAURICIO RANKIN ALCOHOL PREP PAD Discontinued USE 1 PAD ON SKIN BI W TO CLEAN AND DISINFECT THE SKIN 200 Dec 19, 2019 [id number] Jun 06, 2019 PAMELA RAMSEY ALCOHOL PREP PAD Discontinued USE 1 PAD ON SKIN BI W TO CLEAN AND DISINFECT THE SKIN 200 Jul 25, 2019 [id number] Nov 12, 2018 PAMELA RAMSEY ASCORBIC ACID 250MG TAB Non-VA TAKE ONE TABLET BY MOUTH ONCE A DAY Non-VA Documented by: SHANIQUA SCHMIDT nted at: [facility] ASPIRIN 25MG/DIPYRIDAMOLE 200MG CAP,SA Active T CHAIPN 1 CAPSULE BY MOUTH TWO TIMES A DAY - SWALLOW WHOLE. DO NOT CRUSH OR CHEW. FOR RECURRENT TIA/STROKE 180 Dec 19, 2019 [id number] Dec 20, 2018 PAMELA RAMSEY ASPIRIN 25MG/DIPYRIDAMOLE 200MG CAP,SA Discontinued T CHAPIN 1 CAPSULE BY MOUTH TWO TIMES A DAY - SWALLOW WHOLE. DO NOT CRUSH OR CHEW. FOR RECURRENT TIA/STROKE 180 Feb 06, 2019 [id number] Sep 28, 2018 ZACHARY GRECO V [place] ASPIRIN 81MG TAB,EC Non- [place] TAKE ONE TABLET BY MOUTH ONCE A DAY Non-VA Documented by: PADMA LNOG nted at: PRIMITIVO NESS ATORVASTATIN CA 80MG TAB Active TAKE ONE TABLET BY MOUTH AT BEDTIME FOR CHOLESTEROL - REPORT ANY UNEXPLAINED MUSCLE PAIN/WEAKNESS TO YOUR PROVIDER 90 Dec 19, 2019 [id number] September 04, 2019 PAMELA RAMSEY ATORVASTATIN CA 80MG TAB Discontinued TAKE ONE TABLET BY MOUTH AT BEDTIME FOR CHOLESTEROL - REPORT ANY UNEXPLAINED MUSCLE PAIN/WEAKNESS TO YOUR PROVIDER 90 Dec 20, 2018 [id number] Nov 12, 2018 PAMELA RAMSEY BUDESONIDE 160MCG/FORMOTEROL FUM 4.5MCG/SPRAY INHL,ORAL,10.2 GM Active INHALE 2 PUFFS BY MOUTH TWO TIMES A DAY FOR BREATHING. SHAKE WELL. RINSE MOUTH AND SPIT AFTER EACH USE. 3 Apr 24, 2020 [id number] August 22, 2019 LISSA OATES [facility] CALCIUM/VITAMIN D TAB No n-VA TAKE BY MOUTH ONCE A DAY Non-V A Documented by: PADMA LONG nted at: PRIMIT[facility] NESS CARBOXYMETHYLCELLULOSE NA 0.5% SOLN,OPH Active INSTILL ONE DROP IN BOTH EYES FOUR TIMES A DAY FOR DRY EYES Feb 01, 2020 [id number] September 03 0 [facility] [...] FOR ALL JOINTS. 100 Oct 31, 2018 [id number] Oct 06, 2018 ANAYELI KIRKPATRICK [facility] DICLOFENAC NA 1% GEL,TOP APPLY 2 GRAMS A FFECTED AREA TWO TIMES A DAY NEEDED FOR PAIN AND INFLAMMATION. DO NOT EXCEED 16GM DAILY TO ANY AFFECTED JOINT OF LOWER EXTREMITIES. DO NOT EXCEED 8GM DAILY TO ANY AFFECTED JOINT OF UPPER EXTREMITES. DO NOT EXCEED TOTAL DOSE OF 32GM DAILY FOR ALL JOINTS. 100 Jan 17, 2019 [id number] Dec 20, 2018 PAMELA RAMSEY FLUTICASONE PROPIONATE 50MCG/SPRAY SOLN,NASAL,16GM Active INSTILL 1 SPRAY IN EACH NOSTRIL ONCE A DAY SHAKE GENTLY BEFORE USE! - MUST BE USED DIRECTED FOR 3 WEEKS TO PROVIDE BENEFIT. * NO EARLY REFILLS * 1UNIT = 30DAYS AT 4 PF/DAY OR 60DAYS AT 2PF/DAY 2 Dec 19, 2019 [id number] August 26, 2019 PAMELA RAMSEY KETOTIFEN 0.025% SOLN,OPH Active INSTILL 1 DROP IN BOTH EYES TWO TIMES A DAY FOR RELIEF OF ALLERGY SYMPTOMS IN EYE(S) Feb 01, 2020 [id number] September 04, 2019 [place] [facility] LANCET,SOFTCLIX Active USE LANCET BIW FOR TESTING BL OOD GLUCOSE DIRECTED Sep 29, 2020 [id number] Sep 30, 2019 MAURICIO RANKIN [facility] LANCET,SOFTCLIX Discontinued USE LANCET BIW FO R TESTING BLOOD GLUCOSE DIRECTED Dec 19, 2019 [id number] Jun 06, 2019 PAMELA RAMSEY [facility] LANCET,SOFTCLIX Discontinued USE LANCET BIW FO R TESTING BLOOD GLUCOSE DIRECTED Jul 25, 2019 [id number] Nov 12, 2018 PAMELA RAMSEY LISINOPRIL 40MG TAB Non- [place] TAKE ONE-HALF TABLET BY MOUTH EVERY MORNING Non-VA Documented by: PAMELA RAMSEY nted at: [facility]IM[facility] NESS LORATADINE/PSEUDOEPHEDRINE TAB,SA Non-VA TAKE BY MOUTH No n-VA Documented by: JUAN LANG nted at: ARTUR BLAS [facility] MAGNESIUM OXIDE 400MG TAB Non-VA TAKE ONE TABLET BY MOUTH ONCE A DAY Non-VA Documented by: SHANIQUA SCHMIDTume nted at: PRIMITIVO NESS METFORMIN HCL 500MG [...] ACID (REPLACES ACIPHEX) 180 Dec 19, 2019 [id number] August 26, 2019 PAMELA RAMSEY POLYETHYLENE GLYCOL [...] KIRKPATRICK Docume nted at: ARTUR BLAS [facility] TERBINAFINE HCL 1% CREAM,TOP Active APPLY LIGHT LY TO AFFECTED AREA TWO TIMES A DAY FOR INFECTION 90 Sep 23, 2020 [id number] Sep 24, 2019 ADRIEL HERNANDEZ UREA 20% CREAM,TOP Active APPLY LIGHTLY (20%) TO AFFECTED AREA TWO TIMES A DAY NEEDED TO PROMOTE HEALING,RUB IN UNTIL COMPLETELY ABSORBED*FOR TOPICAL USE ONLY* APPLY TO BOTH FEET DIRECTED. 90 Sep 25, 2020 [id number] Sep 26, 2019 ADRIEL HERNANDEZ Problems (Conditions): All historical and current Section Date Range: From patient's date of to the date document was create d. This section includes a list of Problems (Conditions) know n to [place] for the patient. It includes both active and inacti ve problems (conditions). The data comes from all [place] treatment facilities. Problem Status Problem Code Date of Onset Date of Resolution Comm ent(s) Provider Source Alcohol intake above recommended sensible limits Active 267552226 PADMA LONG [facility] Allergic conjunctivitis Active 387868368 [facility] [facility] Bilateral senile combined form cataracts of eyes Active 25732736593 [address] Bilateral tinnitus Active 9882696775831 CHASTITY JEAN [facility] Coronary arteriosclerosis Active 84110930 September 08, 2014 Entered By: PADMA LONG Comment: hx of ptca to RCA several yrs. agoMa2014 Entered By: PADMA LONG Comment: heart cath 09/01/14, neg. / previous stent to RCA,, via abida meneses ks HATCHER, JENNEY R [facility] Diabetes mellitus Active 63130845 PAMELA RAMSEY [facility] Disorder of pancreas Active 8586247 September 08, 2014 Entered By: PADMA LONG Comment: 2.5cm low density lseion in bodyMay 2014 Entered By: PADMA LONG Comment: question of communication with pancreatic ductMay 2014 Entered By: PADMA LONG Comment: favored to be cystic pancreatic cancerMa2014 Entered By: PADMA LONG Comment: per abdominal CT 09/01/14, via abida meneses,PADMA Pradhan [facility] Dry eyes Active 871809076 [facility]PARAISON[address] [facility] Gastro-esophageal reflux disease without esophagitis ( SNOMED CT 945961420) Active 747270762 ALF GUEVARA [facility] History of malignant neoplasm of lung Active 701015193 CHAPO BARRETO [facility] Hyperlipidemia (SNOMED CT 50191488) Active 70684757 PAMELA RAMSEY [facility] Lung mass Active 202580570 September 08, 2014 E ntered By: PADMA LONG Comment: 4.5 cm mass, post. segment right upper lobe.September 08, 2014 Entered By: PADMA LONG Comment: mild adenopathy in mediastinum and bilat. hilaMay 2014 Entered By: PADMA LONG Comment: most likely related to lung cancerMa2014 Entered By: PADMA LONG Comment: per ct angio of chest with contrast 09/01/14,via zaira,[facility] 2014 Entered By: PADMA LONG Comment: per path report- mod. differentiated bronchogenic adenoca. 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 Active 65934690 KATHERINE MATT [facility] Obesity Active 908343752 [facility] Obstructive sleep apnea syndrome (SNOMED CT 27943982) Active 554236 015 [place] [facility] Pancreatic cyst Active 11664314 JAYLENE GUEVARA [facility] Papilloma of right eyelid Active 257580314657868 [place] SHAW [facility] Polyp of colon Active 43871326 Jan 23 16 Entered By: PADMA LONG Comment: c-scope 01/17/16, multiple benign colonic polypsJun 28, 2017 Entered By: PADMA LONG Comment: c-scope,06/25/17,catholic health, three benign polyps- sigmoid colon, transverse colon,cecum. see path report cprs SHARRON TORRES [facility] Pulmonary emphysema Active 81956334 [address] [facility] Sensorineural hearing loss, bilateral Active 327474415 CHASTITY JEAN [facility] Snoring Active 03774757 SONG BULLOCK [facility] Type 2 diabetes mellitus without complication Active 223330381 [place] SHAW [facility] Environmental Allergies (ICD-9-CM 477.9) Inactive 477.9 Dec 18, 2017 PADMA LONG [facility] External hemorrhoids without mention of complication (ICD-9- CM 455.3) Inactive 455.3 Dec 18, 2017 PADMA LONG [facility] Impotence of organic origin (ICD-9-CM 607.84) Inactive 607.84 Dec 18, 2017 PADMA LONG [facility] Screening for Lipoid disorders (ICD-9-CM V77.91) Inactive V77.91 Jan 18, [address] [facility] Stye * (ICD-9-CM 373.11) Inactive 373.11 Dec 18, 201 8 Jan 18, 2007 Entered By: PADMA LONG Comment: bilat lower lids, chronic/recurrent PADMA LONG [facility] Tobacco Use Disorder, Continuous Inactive 305.1 [...] 02:08 PM ADMINISTRATIVE NOTE: LOCAL TITLE: WI-ADMIN MSA STANDARD TITLE: ADMINISTRATIVE NOTE DATE OF NOTE: JAN 22, 2019@14:08 ENTRY DATE: JAN 22, 2019@14:08:42 AUTHOR: HUBERT GUZMAN EXP COSIGNER: URGENCY: STATUS: [facility] and stated this p/t may be late by 20 minutes to his appointment. Notfied the [place]ath[place] about it. And she stated they could work him in , that he may have to wait. They will work him in between p/ts /es/ HUBERT GUZMAN msa Signed: 01/22/2019 14:12 HUBERT GUZMAN [facility]
--- OUTSIDE RECORDS SUMMARY | 2019-12-02 07:31 | XMS REPORT | Encounter Summary ---
Author Author Department of [facility] Aff rsHERBERTH Organization [facility] Address [address] [place] [address] Phone Unavailable Care Team Providers Care Embedded Software Developer Name Role Phone ADRIEL HERNANDEZ PCP Unavailable Insurance Providers: All historical and current No Data Provided for This Section Selected Encounter This section includes the information on record at [place] for the Encounter. Date/Time Encounter Type Encounter Description Reason Provider Source Oct 07, 2019 11:16 AM Outpatient Encounter ADMIN PAT ACTIVTIES ([place]) [facility] IHE Encounter Template Text not [...] 11:00 AM AMBULATORY - NONE [facility] Dec 31, 2019 01:15 PM AMBULATORY - MEDICINE ART[facility] TER[facility] Dec 31, 2019 01:16 PM AMBULATORY - MEDICINE [facility]UR TER[facility] Jan 01, 2020 09:00 AM AMBULATORY - MEDICINE ARTUR TER[facility] Jan 07, 2020 12:00 PM AMBULATORY - MEDICINE [facility] Jan 27, 2020 01:00 PM AMBULATORY - MEDICINE [facility] Mar 31, 2020 09:30 AM AMBULATORY - MEDICINE [facility] Mar 31, 2020 09:31 AM AMBULATORY - MEDICINE ARTUR TER[facility] Mar 31, 2020 10:00 AM AMBULATORY - MEDICINE [facility] Mar 31, 2020 10:01 AM AMBULATORY - MEDICINE [facility] TER[facility] Apr 07, 2020 08:00 AM AMBULATORY - NONE [facility] Active, Pending, and Scheduled Orders [...] Date/Time Test Type Test Details Facility Name Nov 17, 2019 07:23 AM Consult Order [facility] [id number] Cons Cryptographer's Choice ARTUR TERAN [facility] Surgical Procedures: All associated to the [...] 0.47-5.00 Sep 23, 2019 10:56 AM [facility] LIPID PROFILE(HDL,TRIG,CHO L,LDL) Specimen Type: PLASMA Comment: For eGFR: eGFR results >60 are imprecise. Many variables affect the calculated result. Interpretation of eGFR results >60 must be monitored over time. CHOLESTEROL 137 mg/dL 0-200 TRIGS 167 mg/dL H 0-150 HDL-CHOLESTEROL 36 mg/dL L >40 LDL (CALC) 68 mg/dL 0-99.9 Sep 23, 2019 10:56 AM [facility] URINALYSIS Specimen Type: URINE No comment entered. [...] 2019 10:56 AM [facility] MICROALBUMIN (ANANT,WI) RANDO M URINE Specimen Type: URINE Comment: Microalbumin is below the linearity of the instrument, unable to calculate the albumin/creatinine ratio. *MICROALBUMIN,RAND < 5 ug/mL *MICROALB/CREAT canc mcg/mg cr *UR PROTEIN < 6.8 mg/dL *UR CREATININE 37.4 mg/dL Not Available Sep 23, 2019 10:56 AM [facility] COMPREHENSIVE METABOLIC PA KELLE Specimen Type: PLASMA [...] EGFR >60 Sep 23, 2019 10:56 AM [facility] CBC & DIFF Specimen Type: BLOOD No [...] place. Date/Time Smoking Status/Tobacco Use Comment Josseline avinay Nov 23, 2017 09:51 AM CURRENT TOBACCO [...] to adverse reactions to drug (diso rder) [facility] 15 PLAVIX September 08, 2014 Propensity to adverse reactions to drug (diso rder) [facility] 15 Medications: VA dispensed (-15 months) and Non-VA Documented (Obtained Outside V A) Section Date Range: 1) prescriptions processed by a [facility] pharmacy in the last 15 m [facility], and 2) all medications recorded in [...] TEST BLOOD GLUCOSE 50 Dec 19, 2019 [id number] September 04, 2019 PAMELA RAMSEY ACCU-CHEK CHARLES PLUS (GLUCOSE) TEST STRIP Discontinued USE 1 STRIP FOR TESTING TWO TIMES PER WEEK - DIRECTED TO TEST BLOOD GLUCOSE 50 Jul 25, 2019 [id number] Nov 12, 2018 PAMELA RAMSEY ALBUTEROL SO4 90MCG/ACTUAT (CFC-F) INHL,ORAL,6.7GM Active INHALE 2 PUFFS BY ORAL INHALATION EVERY 4 HOURS NEEDED FOR BREATHING. SHAKE WELL. RINSE MOUTHPIECE FREQUENTLY TO PREVENT CLOGGING. USE NEEDED FOR SHORTNESS OF AIR/WHEEZING FOR BREATHING. SHAKE WELL. RINSE MOUTHPIECE FREQUENTLY TO PREVENT CLOGGING. USE NEEDED FOR SHORTNESS OF AIR/WHEEZING 1 Dec 19, 2019 [id number] September 04, 2019 [facility] ALCOHOL PREP PAD Active USE 1 PAD ON SKIN BIW TO CLEAN AND DISINFECT THE SKIN Sep 29, 2020 [id number] Sep 30, 2019 [facility] ALCOHOL PREP PAD Discontinued USE 1 PAD ON SKIN BI W TO CLEAN AND DISINFECT THE SKIN 200 Dec 19, 2019 [id number] Jun 06, 2019 [facility] ALCOHOL PREP PAD Discontinued USE 1 PAD ON SKIN BI W TO CLEAN AND DISINFECT THE SKIN 200 Jul 25, 2019 [id number] Nov 12, 2018 [facility] ASCORBIC ACID 250MG TAB Non-VA TAKE ONE TABLET BY MOUTH ONCE A DAY Non-VA Documented by: SHANIQUA SCHMIDT nted at: [facility] ASPIRIN 25MG/DIPYRIDAMOLE 200MG CAP,SA Active T CHAPIN 1 CAPSULE BY MOUTH TWO TIMES A DAY - SWALLOW WHOLE. DO NOT CRUSH OR CHEW. FOR RECURRENT TIA/STROKE 180 Dec 19, 2019 [id number] Dec 20, 2018 [facility] ASPIRIN 25MG/DIPYRIDAMOLE 200MG CAP,SA Discontinued T CHAPIN 1 CAPSULE BY MOUTH TWO TIMES A DAY - SWALLOW WHOLE. DO NOT CRUSH OR CHEW. FOR RECURRENT TIA/STROKE 180 Feb 06, 2019 [id number] Sep 28, 2018 ZACHARY GRECO [facility] ASPIRIN 81MG TAB,EC Non- VA TAKE ONE TABLET BY MOUTH ONCE A DAY Non-VA Documented by: PADMA LONG nted at: [facility] ATORVASTATIN CA 80MG TAB Active TAKE ONE TABLET BY MOUTH AT BEDTIME FOR CHOLESTEROL - REPORT ANY UNEXPLAINED MUSCLE PAIN/WEAKNESS TO YOUR PROVIDER 90 Dec 19, 2019 [id number] September 04, 2019 PAMELA RAMSEY ATORVASTATIN CA 80MG TAB Discontinued TAKE ONE TABLET BY MOUTH AT BEDTIME FOR CHOLESTEROL - REPORT ANY UNEXPLAINED MUSCLE PAIN/WEAKNESS TO YOUR PROVIDER 90 Dec 20, 2018 [id number] Nov 12, 2018 PAMELA RAMSEY BUDESONIDE 160MCG/FORMOTEROL FUM 4.5MCG/SPRAY INHL,ORAL,10.2 GM Active INHALE 2 PUFFS BY MOUTH TWO TIMES A DAY FOR BREATHING. SHAKE WELL. RINSE MOUTH AND SPIT AFTER EACH USE. 3 Apr 24, 2020 [id number] August 22, 2019 LISSA OATES [facility] CALCIUM/VITAMIN D TAB No n-VA TAKE BY MOUTH ONCE A DAY Non-V A Documented by: PADMA LONG nted at: [facility] CARBOXYMETHYLCELLULOSE NA 0.5% SOLN,OPH Active INSTILL ONE DROP IN BOTH EYES FOUR TIMES A DAY FOR DRY EYES 15 Feb 01, 2020 [id number] September 03 0 [facility] DICLOFENAC NA 1% GEL,TOP Discontinued APPLY 2 GRAMS A FFECTED AREA TWO TIMES A DAY NEEDED FOR PAIN AND INFLAMMATION. DO NOT EXCEED 16GM DAILY TO ANY AFFECTED JOINT OF LOWER EXTREMITIES. DO NOT EXCEED 8GM DAILY TO ANY AFFECTED JOINT OF UPPER EXTREMITES. DO NOT EXCEED TOTAL DOSE OF 32GM DAILY FOR ALL JOINTS. 100 Oct 31, 2018 [id number] Oct 06, 2018 ANAYELI KIRKPATRICK Luda Juan M TERAN [facility] DICLOFENAC NA 1% GEL,TOP APPLY 2 GRAMS A FFECTED AREA TWO TIMES A DAY NEEDED FOR PAIN AND INFLAMMATION. DO NOT EXCEED 16GM DAILY TO ANY AFFECTED JOINT OF LOWER EXTREMITIES. DO NOT EXCEED 8GM DAILY TO ANY AFFECTED JOINT OF UPPER EXTREMITES. DO NOT EXCEED TOTAL DOSE OF 32GM DAILY FOR ALL JOINTS. 100 Jan 17, 2019 [id number] Dec 20, 2018 PAMELA RAMSEY FLUTICASONE PROPIONATE 50MCG/SPRAY SOLN,NASAL,16GM Active INSTILL 1 SPRAY IN EACH NOSTRIL ONCE A DAY SHAKE GENTLY BEFORE USE! - MUST BE USED DIRECTED FOR 3 WEEKS TO PROVIDE BENEFIT. * NO EARLY REFILLS * 1UNIT = 30DAYS AT 4 PF/DAY OR 60DAYS AT 2PF/DAY 2 Dec 19, 2019 [id number] August 26, 2019 PAMELA RAMSEY KETOTIFEN 0.025% SOLN,OPH Active INSTILL 1 DROP IN BOTH EYES TWO TIMES A DAY FOR RELIEF OF ALLERGY SYMPTOMS IN EYE(S) Feb 01, 2020 [id number] September 04, 2019 [facility] [facility] [address] LANCET,SOFTCLIX Active USE LANCET BIW FOR TESTING BL OOD GLUCOSE DIRECTED Sep 29, 2020 [id number] Sep 30, 2019 MAURICIO RANKIN LANCET,SOFTCLIX Discontinued USE LANCET BIW FO R TESTING BLOOD GLUCOSE DIRECTED Dec 19, 2019 [id number] Jun 06, 2019 PAMELA RAMSEY LANCET,SOFTCLIX Discontinued USE LANCET BIW FO R TESTING BLOOD GLUCOSE DIRECTED Jul 25, 2019 [id number] Nov 12, 2018 PAMELA RAMSEY LISINOPRIL 40MG TAB Non- VA TAKE ONE-HALF TABLET BY MOUTH EVERY MORNING Non-VA Documented by: PAMELA RAMSEY nted at: [facility] LORATADINE/PSEUDOEPHEDRINE TAB,SA Non-VA TAKE BY MOUTH No n-VA Documented by: JUAN LANG n[facility] at: [facility] MAGNESIUM OXIDE 400MG TAB Non-VA TAKE ONE [...] ACID (REPLACES ACIPHEX) 180 Dec 19, 2019 [id number] August 26, 2019 PAMELA RAMSEY POLYETHYLENE GLYCOL [...] Documented by: ANAYELI KIRKPATRICK nted at: [facility] TERBINAFINE HCL 1% CREAM,TOP Active APPLY LIGHT LY TO AFFECTED AREA TWO TIMES A DAY FOR INFECTION 90 Sep 23, 2020 [id number] Sep 24, 2019 ADRIEL HERNANDEZ UREA 20% CREAM,TOP Active APPLY LIGHTLY (20%) TO AFFECTED AREA TWO TIMES A DAY NEEDED TO PROMOTE HEALING,RUB IN UNTIL COMPLETELY ABSORBED*FOR TOPICAL USE ONLY* APPLY TO BOTH FEET DIRECTED. 90 Sep 25, 2020 [id number] Sep 26, 2019 [facility]NDE[facility] Problems [...] Alcohol intake above recommended sensible limits Active 884467534 PADMA LONG [facility] Allergic conjunctivitis Active 206648141 BRADLEYNEDA [facility] Bilateral senile combined form cataracts of eyes Active [id number] 9108 BRADLEYNEDA [facility] Bilateral tinnitus Active [id number] CHASTITY JEAN [facility] Coronary arteriosclerosis Active 34365929 September 08, 2014 Entered By: PADMA LONG Comment: hx of ptca to RCA several yrs. agoSeptember 08, 2014 Entered By: PADMA LONG Comment: heart cath 09/01/14, neg. / previous stent to RCA,, via abida menesessd KALA JONES [facility] Diabetes mellitus Active 17923889 APMELA RAMSEY [facility] Disorder of pancreas Active 8811681 September 08, 2014 Entered By: PADMA LONG Comment: 2.5cm low density lseion in bodyMay 2014 Entered By: PADMA LONG Comment: question of communication with pancreatic ductMay 2014 Entered By: PADMA LONG Comment: favored to be cystic pancreatic [email or web address] Entered By: PADMA LONG Comment: per abdominal CT 09/01/14, via abida meneses,sd PADMA LONG [facility] Dry eyes Active [id number] [facility] Gastro-esophageal reflux disease without esophagitis ( SNOMED CT 582360907) Active 068441202 ALF GUEVARA [facility] History of malignant neoplasm of lung Active 105294195 CHAPO BARRETO [facility] Hyperlipidemia (SNOMED CT 35832596) Active 94517637 PAMELA RAMSEY [facility] Lung mass Active 736286643 September 08, 2014 E ntered By: PADMA LONG Comment: 4.5 cm mass, post. segment right upper lobe.September 08, 2014 Entered By: PADMA LONG Comment: mild adenopathy in mediastinum and bilat. [email or web address] Entered By: PADMA LONG Comment: most likely related to lung [email or web address] Entered By: PADMA LONG Comment: per ct angio of chest with contrast 09/01/14,via [facility] 2014 Entered By: PADMA LONG Comment: per path report- mod. differentiated bronchogenic adenoca. 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 Active 28809214 KATHERINE MATT [facility] Obesity Active 756238579 [facility] [place] Obstructive sleep apnea syndrome (SNOMED CT 46915959) Active 840531 015 PHILIPPE DOUGLASS [facility] Pancreatic cyst Active 57389748 JAYLENE GUEVARA [facility] Papilloma of right eyelid Active [id number] NEDA SHAW [facility] Polyp of colon Active 79476837 Jan 23 16 Entered By: PADMA LONG Comment: c-scope 01/17/16, multiple benign colonic polypsJun 28, 2017 Entered By: PADMA LONG Comment: c-scope,06/25/17,[facility], three benign polyps- sigmoid colon, transverse colon,cecum. see path report cprs SHARRON TORRES [facility] Pulmonary emphysema Active 37799151 0 BRIANA LESLYE [facility] Sensorineural hearing loss, bilateral Active 711329258 [facility]ASTITY JEAN [facility] Snoring Active 38441358 [place] [facility] Type 2 diabetes mellitus without complication Active 413251944 NEDA SHAW [facility] Environmental Allergies (ICD-9-CM 477.9) Inactive 477.9 Dec 18, [address] [facility] External hemorrhoids without mention of complication (ICD-9- CM 455.3) Inactive 455.3 Dec 18, [address] [facility] Impotence of organic origin (ICD-9-CM 607.84) Inactive 607.84 Dec 18, [address] [facility] Screening for Lipoid disorders (ICD-9-CM V77.91) Inactive V77.91 Jan 18, [address] [facility] Stye * (ICD-9-CM 373.11) Inactive 373.11 Dec 18, 201 8 Jan 18, 2007 Entered By: PADMA LONG Comment: bilat lower lids, chronic/recurrent PADMA LONG [facility] Tobacco Use Disorder, Continuous Inactive 305.1 Dec 18, 2017 Jan 18, 2007 Entered By: PADMA LONG Comment: one ppd PADMA LONG [facility] Radiology Reports: +/- 30 days of [...] SCHMIDT COSIGNER: URGENCY: STATUS: COMPLETED Department of [facility] Artur Teran [address] [place] [address] HERBERTH FENG JR [address], [address] Sep Dear HERBERTH BOB, The purpose of this letter is to inform you of your test results done recently at the [facility], [place], [place]. Reviewed recent lab- A1C is slightly elevated at 6.7, meaning your blood sugars are averaging 137. Fasting blood sugar is good at 98, diabetes stable. Call the [facility] to schedule a lab appt to return to clinic in 6 months for FBS and A1C. CBC is normal, urine is clear. Liver enzyme, alkaline phosphatase is slightly elevated at 154, not clinical to treat. Triglycerides are slightly elevated at 167. Begin low fat diet, exercise as tolerated, continue with lipitor as directed. [facility]
--- OUTSIDE RECORDS SUMMARY | 2019-12-02 07:31 | XMS REPORT | Encounter Summary ---
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 Date/Time Encounter Type Encounter Description Reason Provider Source Oct 07, 2019 09:31 AM Outpatient Encounter ADMIN PAT ACTIVTIES ([place] NCT) [facility] IHE Encounter Template Text not used by [place] Assessments - Encounter Diagnoses No Data Provided [...] PM AMBULATORY - MEDICINE ARTUR BLAS [facility] Dec 31, 2019 01:16 PM AMBULATORY - MEDICINE ARTUR BLAS [facility] Jan 01, 2020 09:00 AM AMBULATORY - MEDICINE ARTUR BLAS [facility] Jan 07, 2020 12:00 PM AMBULATORY - MEDICINE [facility] Jan 27, 2020 01:00 PM AMBULATORY - MEDICINE MARLENE KEYS V [facility] Mar 31, 2020 09:30 AM AMBULATORY - MEDICINE [facility] Mar 31, 2020 09:31 AM AMBULATORY - MEDICINE ARTUR BLAS [facility] Mar 31, 2020 10:00 AM AMBULATORY - MEDICINE [facility] Mar 31, 2020 10:01 AM AMBULATORY - MEDICINE ARTUR BLAS [facility] Apr 07, 2020 08:00 AM [...] data comes from all [place] treatment facilities. Test Date/Time Test Type Test Details Facility Name Nov 17, 2019 07:23 AM Consult Order [facility] [id number] Cons Life Manager's Choice ARTUR BLAS [facility] Surgical Procedures: All associated to the [...] 0-99.9 Sep 23, 2019 10:56 AM [facility] URINALYSIS Specimen Type: URINE No comment entered. URINE COLOR Yellow SPECIFIC GRAVITY 1.009 1.005-1.030 UROBILINOGEN Negative mg/dL 0.1-1.0 URINE BILIRUBIN Negative Negative URINE KETONES Negative mg/dl Negative URINE GLUCOSE Negative mg/dL Negative URINE PROTEIN Negative mg/dl Negative-Tr zainab URINE PH 6.0 5-8 APPEARANCE,URINE Clear Clear URINE BLOOD Negative Negative URINE NITRITE Negative Negative LEUKOCYTE ESTERASE Negative Negative Sep 23, 2019 10:56 AM [facility] MICROALBUMIN ([place]) RANDO M URINE Specimen Type: URINE Comment: Microalbumin is below the linearity of the instrument, unable to calculate the albumin/creatinine ratio. *MICROALBUMIN,RAND < 5 ug/mL *MICROALB/CREAT canc mcg/mg cr *UR PROTEIN < 6.8 mg/dL *UR CREATININE 37.4 mg/dL Not Available Sep 23, 2019 10:56 AM [facility] COMPREHENSIVE METABOLIC PA KELLE Specimen Type: [...] patient. The data comes from a ll [place] treatment facilities. It does not list Allergies/ADRs that were removed or entered in error. Some allergies/ADRs may be reported in t he Immunization section. Allergen Event Date Event Type Reaction(s) Severity Source BRIL[place] September 08, 2014 Propensity to adverse reactions to drug (diso rder) [facility] 15 PLAVIX September 08, 2014 Propensity to adverse reactions to drug (diso rder) [facility] 15 Medications: [facility] dispensed (-15 [...] TEST BLOOD GLUCOSE 50 Dec 19, 2019 [id number] September 04, 2019 PAMELA RAMSEY ACCU-CHEK CHARLES PLUS (GLUCOSE) TEST STRIP Discontinued USE 1 STRIP FOR TESTING TWO TIMES PER WEEK - DIRECTED TO TEST BLOOD GLUCOSE 50 Jul 25, 2019 [id number] Nov 12, 2018 PAMELA RAMSEY ALBUTEROL SO4 90MCG/ACTUAT (CFC-F) INHL,ORAL,6.7GM Active INHALE 2 PUFFS BY ORAL INHALATION EVERY 4 HOURS NEEDED FOR BREATHING. SHAKE WELL. RINSE MOUTHPIECE FREQUENTLY TO PREVENT CLOGGING. USE NEEDED FOR SHORTNESS OF AIR/WHEEZING FOR BREATHING. SHAKE WELL. RINSE MOUTHPIECE FREQUENTLY TO PREVENT CLOGGING. USE NEEDED FOR SHORTNESS OF AIR/WHEEZING 1 Dec 19, 2019 [id number] September 04, 2019 [facility] ALCOHOL PREP PAD Active USE 1 PAD ON SKIN BIW TO CLEAN AND DISINFECT THE SKIN Sep 29, 2020 [id number] Sep 30, 2019 MA[facility]ICIO RANKIN [facility] ALCOHOL PREP PAD Discontinued USE 1 PAD ON SKIN BI W TO CLEAN AND DISINFECT THE SKIN 200 Dec 19, 2019 [id number] Jun 06, 2019 [facility]EL[facility] RAMSE[facility] ALCOHOL PREP PAD Discontinued USE 1 PAD ON SKIN BI W TO CLEAN AND DISINFECT THE SKIN 200 Jul 25, 2019 [id number] Nov 12, 2018 P[facility]ELA RAMSEY [facility] ASCORBIC ACID 250MG TAB Non-VA TAKE ONE TABLET BY MOUTH ONCE A DAY Non-VA Documented by: SHANIQUA SCHMIDT nted at: [facility] ASPIRIN 25MG/DIPYRIDAMOLE 200MG CAP,SA Active T CHAPIN 1 CAPSULE BY MOUTH TWO TIMES A DAY - SWALLOW WHOLE. DO NOT CRUSH OR CHEW. FOR RECURRENT TIA/STROKE 180 Dec 19, 2019 [id number] Dec 20, 2018 [facility] ASPIRIN 25MG/DIPYRIDAMOLE 200MG CAP,SA Discontinued T CHAPIN 1 CAPSULE BY MOUTH TWO TIMES A DAY - SWALLOW WHOLE. DO NOT CRUSH OR CHEW. FOR RECURRENT TIA/STROKE 180 Feb 06, 2019 [id number] Sep 28, 2018 ZACHARY GRECO [facility] ASPIRIN 81MG TAB,EC Non- [facility] TAKE ONE TABLET BY MOUTH ONCE A DAY Non-VA Documented by: PADMA LONG nted at: [facility] ATORVASTATIN CA 80MG TAB Active TAKE ONE TABLET BY MOUTH AT BEDTIME FOR CHOLESTEROL - REPORT ANY UNEXPLAINED MUSCLE PAIN/WEAKNESS TO YOUR PROVIDER 90 Dec 19, 2019 [id number] September 04, 2019 PAMELA RAMSEY ATORVASTATIN CA 80MG TAB Discontinued TAKE ONE TABLET BY MOUTH AT BEDTIME FOR CHOLESTEROL - REPORT ANY UNEXPLAINED MUSCLE PAIN/WEAKNESS TO YOUR PROVIDER 90 Dec 20, 2018 [id number] Nov 12, 2018 PAMELA RAMSEY BUDESONIDE 160MCG/FORMOTEROL FUM 4.5MCG/SPRAY INHL,ORAL,10.2 GM Active INHALE 2 PUFFS BY MOUTH TWO TIMES A DAY FOR BREATHING. SHAKE WELL. RINSE MOUTH AND SPIT AFTER EACH USE. 3 Apr 24, 2020 [id number] August 22, 2019 LISSA OATES [facility] CALCIUM/VITAMIN D TAB No n-VA TAKE BY MOUTH ONCE A DAY Non-V A Documented by: PADMA LONG nted at: [facility] CARBOXYMETHYLCELLULOSE NA 0.5% SOLN,OPH Active INSTILL ONE DROP IN BOTH EYES FOUR TIMES A DAY FOR DRY EYES 15 Feb 01, 2020 [id number] September 03 0 [facility] [...] FOR ALL JOINTS. 100 Oct 31, 2018 [id number] Oct 06, 2018 ANAYEIL KIRKPATRICK Luda Juan M BLAS [facility] DICLOFENAC NA 1% GEL,TOP APPLY 2 GRAMS A FFECTED AREA TWO TIMES A DAY NEEDED FOR PAIN AND INFLAMMATION. DO NOT EXCEED 16GM DAILY TO ANY AFFECTED JOINT OF LOWER EXTREMITIES. DO NOT EXCEED 8GM DAILY TO ANY AFFECTED JOINT OF UPPER EXTREMITES. DO NOT EXCEED TOTAL DOSE OF 32GM DAILY FOR ALL JOINTS. 100 Jan 17, 2019 [id number] Dec 20, 2018 PAMELA RAMSEY FLUTICASONE PROPIONATE 50MCG/SPRAY SOLN,NASAL,16GM Active INSTILL 1 SPRAY IN EACH NOSTRIL ONCE A DAY SHAKE GENTLY BEFORE USE! - MUST BE USED DIRECTED FOR 3 WEEKS TO PROVIDE BENEFIT. * NO EARLY REFILLS * 1UNIT = 30DAYS AT 4 PF/DAY OR 60DAYS AT 2PF/DAY 2 Dec 19, 2019 [id number] August 26, 2019 PAMELA RAMSEY KETOTIFEN 0.025% SOLN,OPH Active INSTILL 1 DROP IN BOTH EYES TWO TIMES A DAY FOR RELIEF OF ALLERGY SYMPTOMS IN EYE(S) Feb 01, 2020 [id number] September 04, 2019 BRUINNEDA [facility] LANCET,SOFTCLIX Active USE LANCET BIW FOR TESTING BL OOD GLUCOSE DIRECTED Sep 29, 2020 [id number] Sep 30, 2019 MAURICIO RANKIN LANCET,SOFTCLIX Discontinued USE LANCET BIW FO R TESTING BLOOD GLUCOSE DIRECTED Dec 19, 2019 [id number] Jun 06, 2019 PAMELA RAMSEY LANCET,SOFTCLIX Discontinued USE LANCET BIW FO R TESTING BLOOD GLUCOSE DIRECTED Jul 25, 2019 [id number] Nov 12, 2018 PAMELA RAMSEY LISINOPRIL 40MG TAB Non- [place] TAKE ONE-HALF TABLET BY MOUTH EVERY MORNING Non-VA Documented by: PAMELA RAMSEY nted at: [facility] LORATADINE/PSEUDOEPHEDRINE TAB,SA Non-VA TAKE BY MOUTH No n-VA Documented by: JUAN LANG [facility] MAGNESIUM OXIDE 400MG TAB Non-VA [...] ACID (REPLACES ACIPHEX) 180 Dec 19, 2019 [id number] August 26, 2019 PAMELA RAMSEY POLYETHYLENE GLYCOL [...] MATT nted at: [facility] PREGABALIN 150MG CAP,ORAL Non-VA TAKE 1 CAPSULE BY MOUTH TWO TIMES A DAY Non-VA Docume nted by: PAMELA RAMSEY nted at: [facility] SEMAGLUTIDE INJ,SOLN Non -VA INJECT SUBCUTANEOUSLY EVERY WEEK Non-VA Documented by: ANAYELI KIRKPATRICK nted at: [facility] TERBINAFINE HCL 1% CREAM,TOP Active APPLY LIGHT LY TO AFFECTED AREA TWO TIMES A DAY FOR INFECTION 90 Sep 23, 2020 [id number] Sep 24, 2019 ADRIEL HERNANDEZ UREA 20% CREAM,TOP Active APPLY LIGHTLY (20%) TO AFFECTED AREA TWO TIMES A DAY NEEDED TO PROMOTE HEALING,RUB IN UNTIL COMPLETELY ABSORBED*FOR TOPICAL USE ONLY* APPLY TO BOTH FEET DIRECTED. 90 Sep 25, 2020 [id number] Sep 26, 2019 AD[facility]EL HERNANDEZ [facility] Problems [...] Alcohol intake above recommended sensible limits Active 895039855 PADMA LONG [facility] Allergic conjunctivitis Active 784703119 BRUINNEDA [facility] Bilateral senile combined form cataracts of eyes Active [id number] 9108 BRUINNEDA [facility] Bilateral tinnitus Active [id number] CHASTITY JEAN [facility] Coronary arteriosclerosis Active 12035738 September 08, 2014 Entered By: PADMA LONG Comment: hx of ptca to RCA several yrs. agoSeptember 08, 2014 Entered By: PADMA LONG Comment: heart cath 09/01/14, neg. / previous stent to RCA,, via abida menesesmn KALA JONES [facility] Diabetes mellitus Active 88684937 PAMELA RAMSEY [facility] Disorder of pancreas Active 7833031 September 08, 2014 Entered By: PADMA LONG Comment: 2.5cm low density lseion in bodyMay 2014 Entered By: PADMA LONG Comment: question of communication with pancreatic ductMay 2014 Entered By: PADMA LONG Comment: favored to be cystic pancreatic [email or web address] Entered By: PADMA LONG Comment: per abdominal CT 09/01/14, via abida meneses,mn PADMA LONG [facility] Dry eyes [facility] 566058593 [facility] Gastro-esophageal reflux disease without esophagitis ( SNOMED CT 250796517) Active 770317063 ALF GUEVARA [facility] History of malignant neoplasm of lung Active 247742218 CHAPO BARRETO [facility] Hyperlipidemia (SNOMED CT 38497943) Active 49650141 PAMELA RAMSEY [facility] Lung mass Active 455670750 September 08, 2014 E ntered By: PADMA LONG Comment: 4.5 cm mass, post. segment right upper lobe.September 08, 2014 Entered By: PADMA LONG Comment: mild adenopathy in mediastinum and bilat. [email or web address] Entered By: PADMA LONG Comment: most likely related to lung [email or web address] Entered By: PADMA LONG Comment: per ct angio of chest with contrast 09/01/14,via [facility] 2014 Entered By: PADMA LONG Comment: per path report- mod. differentiated bronchogenic adenoca. 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 Active 64378503 KATHERINE MATT [facility] Obesity Active 642869140 SONG BULLOCK [facility] Obstructive sleep apnea syndrome (SNOMED CT 37119858) Active 627710 015 PHILIPPE DOUGLASS [facility] Pancreatic cyst Active 83752929 JAYLENE GUEVARA [facility] Papilloma of right eyelid Active [id number] NEDA SHAW [facility] Polyp of colon Active 82540344 Jan 23 16 Entered By: PADMA LONG Comment: c-scope 01/17/16, multiple benign colonic polypsJun 28, 2017 Entered By: PADMA LONG Comment: c-scope,06/25/17,[facility], three benign polyps- sigmoid colon, transverse colon,cecum. see path report cprs SHARRON TORRES [facility] Pulmonary emphysema Active 09675075 0 BRIANA LESLYE [facility] Sensorineural hearing loss, bilateral Active 490144124 CHASTITY JEAN [facility] Snoring Active 10458728 SONG BULLOCK [facility] Type 2 diabetes mellitus without complication Active 244943481 NEDA SHAW [facility] Environmental Allergies (ICD-9-CM 477.9) Inactive 477.9 Dec 18, 2017 [facility] External hemorrhoids without mention of complication (ICD-9- CM 455.3) Inactive 455.3 Dec 18, 2017 [facility] Impotence of organic origin (ICD-9-CM 607.84) Inactive 607.84 Dec 18, 2017 [facility] Screening for Lipoid disorders (ICD-9-CM V77.91) Inactive V77.91 Jan 18, 2007 [facility] LONG [facility] Stye * (ICD-9-CM 373.11) Inactive 373.11 Dec 18, 201 8 Jan 18, 2007 Entered By: PADMA LONG Comment: bilat lower lids, chronic/recurrent [facility] Tobacco Use Disorder, Continuous Inactive 305.1 Dec 18, 2017 Jan 18, 2007 Entered By: PADMA LONG Comment: one ppd PADMA LONG [facility] Radiology Reports: +/- 30 days of the encounter No Data Provided for This Section Pathology Reports: +/- 30 days of the encounter No Data Provided for This Section Encounter Notes: All associated encounter notes This section contains the clinical notes associated to the Encounter. Date/Time Encounter Note(s) Provider Source Oct 07, 2019 09:31 AM ADMINISTRATIVE NOTE: LOCAL TITLE: [place]-ADMINISTRATIVE NOTE (BP,O) STANDARD TITLE: ADMINISTRATIVE NOTE DATE OF NOTE: OCT 07, 2019@09:31 ENTRY DATE: OCT 07, 2019@09:31:58 AUTHOR: ADRIEL HERNANDEZ COSIGNER: URGENCY: STATUS: COMPLETED reviewed recent lab- [...] or send letter, thank you /gisell/ ADRIEL EUGENE Signed: 10/07/2019 09:43 Receipt Acknowledged By: * AWAITING SIGNATURE * HSANIQUA SCHMIDT,ADRIEL [facility]
--- OUTSIDE RECORDS SUMMARY | 2019-12-02 07:31 | XMS REPORT | Encounter Summary ---
Author Author [facility] Organization [facility] Address [address] [place] [address] Phone Unavailable Care Team Providers Care Package Liner Name Role Phone ADRIEL HERNANDEZ PCP Unavailable Insurance Providers: All historical and current No Data Provided for This Section Selected Encounter This section includes the information on record at CT for the Encounter. Date/Time Encounter Type Encounter Description Reason Provider Source Sep 22, 2019 04:13 PM Outpatient Encounter ADMIN PAT ACTIVTIES (MAS NONCT) ADRIEL HERNANDEZ [facility] IHE Encounter Template Text not used [...] 2019 11:30 AM AMBULATORY - MEDICINE [facility] Oct 07, 2019 09:15 AM AMBULATORY - NONE [facility] 15 Dec 31, 2019 11:00 AM AMBULATORY - NONE ARTUR BLAS [facility] Dec 31, 2019 01:15 PM AMBULATORY - MEDICINE ARTUR BLAS [facility] Dec 31, 2019 01:16 PM AMBULATORY - MEDICINE ARTUR BLAS [facility] Jan 01, 2020 09:00 AM AMBULATORY - MEDICINE ARTUR BLAS [facility] Jan 07, 2020 12:00 PM AMBULATORY - MEDICINE [facility] Jan 27, 2020 01:00 PM AMBULATORY - MEDICINE [facility] Surgical Procedures: All associated to the encounter [...] Negative Negative Sep 23, 2019 10:56 AM [facility] MICROALBUMIN (ANANT,WI) RANDO M URINE Specimen Type: URINE Comment: Microalbumin is below the linearity of the instrument, unable to calculate the albumin/creatinine ratio. *MICROALBUMIN,RAND < 5 ug/mL *MICROALB/CREAT canc mcg/mg cr *UR PROTEIN < 6.8 mg/dL *UR CREATININE 37.4 mg/dL Not Available Sep 23, 2019 10:56 AM [facility] COMPREHENSIVE METABOLIC PA KELLE Specimen Type: PLASMA [...] >60 Sep 23, 2019 10:56 AM [facility] CBC & DIFF Specimen Type: BLOOD [...] YRS OR MORE PORSHA BLAS [facility] Tobacco Use History This section includes [...] YRS OR MORE PORSHA BLAS [facility] Jun 27, 2017 01:39 PM NON-TOBACCO USER ARTUR Mi Jun 27, 2017 01:16 PM NON-TOBACCO USER ARTUR CARRASQUILLO [facility] Jan 06, 2015 02:07 PM NON-TOBACCO USER ARTUR Mi Nov 23, 2014 10:38 AM NON-TOBACCO USER ARTUR CARRASQUILLO [place] Oct 26, 2014 10:36 AM NON-TOBACCO USER ARTUR BLAS [facility] Oct 14, 2014 11:09 AM NON-TOBACCO USER ARTUR BLAS [facility] Advance Directives: All historical [...] to adverse reactions to drug (diso rder) [facility] PLAVIX September 08, 2014 Propensity to adverse reactions to drug (diso rder) [facility] Medications: VA dispensed (-15 months) and Non-VA Documented (Obtained Outside A) Section Date Range: 1) prescriptions processed by a VA pharmacy in the last 15 m [facility], and 2) all medications recorded in the CT medical record as "non-VA medic ations". Pharmacy [...] TEST BLOOD GLUCOSE 50 Dec 19, 2019 [id number] September 04, 2019 PAMELA RAMSEY ACCU-CHEK CHARLES PLUS (GLUCOSE) TEST STRIP Discontinued USE 1 STRIP FOR TESTING TWO TIMES PER WEEK - DIRECTED TO TEST BLOOD GLUCOSE 50 Jul 25, 2019 [id number] Nov 12, 2018 PAMELA RAMSEY ALBUTEROL SO4 90MCG/ACTUAT (CFC-F) INHL,ORAL,6.7GM Active INHALE 2 PUFFS BY ORAL INHALATION EVERY 4 HOURS NEEDED FOR BREATHING. SHAKE WELL. RINSE MOUTHPIECE FREQUENTLY TO PREVENT CLOGGING. USE NEEDED FOR SHORTNESS OF AIR/WHEEZING FOR BREATHING. SHAKE WELL. RINSE MOUTHPIECE FREQUENTLY TO PREVENT CLOGGING. USE NEEDED FOR SHORTNESS OF AIR/WHEEZING 1 Dec 19, 2019 [id number] September 04, 2019 PAMELA RAMSEY ALCOHOL PREP PAD Active USE 1 PAD ON SKIN BIW TO CLEAN AND DISINFECT THE SKIN 200 Sep 29, 2020 [id number] Sep 30, 2019 CHUCHOMAURICIOLloyd [facility] ALCOHOL PREP PAD Discontinued USE 1 PAD ON SKIN BI W TO CLEAN AND DISINFECT THE SKIN 200 Dec 19, 2019 [id number] Jun 06, 2019 PAMELA RAMSEY ALCOHOL PREP PAD Discontinued USE 1 PAD ON SKIN BI W TO CLEAN AND DISINFECT THE SKIN 200 Jul 25, 2019 [id number] Nov 12, 2018 PAMELA RAMSEY ASCORBIC ACID 250MG TAB Non-VA TAKE ONE TABLET BY MOUTH ONCE A DAY Non-VA Documented by: SHANIQUA SCHMIDT nted at: [facility] ASPIRIN 25MG/DIPYRIDAMOLE 200MG CAP,SA Active T CHAPIN 1 CAPSULE BY MOUTH TWO TIMES A DAY - SWALLOW WHOLE. DO NOT CRUSH OR CHEW. FOR RECURRENT TIA/STROKE 180 Dec 19, 2019 [id number] Dec 20, 2018 PAMELA RAMSEY ASPIRIN 25MG/DIPYRIDAMOLE 200MG CAP,SA Discontinued T CHAPIN 1 CAPSULE BY MOUTH TWO TIMES A DAY - SWALLOW WHOLE. DO NOT CRUSH OR CHEW. FOR RECURRENT TIA/STROKE 180 Feb 06, 2019 [id number] Sep 28, 2018 ZACHARY GRECO [facility] ASPIRIN 81MG TAB,EC Non- VA TAKE ONE TABLET BY MOUTH ONCE A DAY Non-VA Documented by: PADMA LONG nted at: [facility] ATORVASTATIN CA 80MG TAB Active TAKE ONE TABLET BY MOUTH AT BEDTIME FOR CHOLESTEROL - REPORT ANY UNEXPLAINED MUSCLE PAIN/WEAKNESS TO YOUR PROVIDER 90 Dec 19, 2019 [id number] September 04, 2019 PAMELA RAMSEY ATORVASTATIN CA 80MG TAB Discontinued TAKE ONE TABLET BY MOUTH AT BEDTIME FOR CHOLESTEROL - REPORT ANY UNEXPLAINED MUSCLE PAIN/WEAKNESS TO YOUR PROVIDER 90 Dec 20, 2018 [id number] Nov 12, 2018 PAMELA RAMSEY BUDESONIDE 160MCG/FORMOTEROL FUM 4.5MCG/SPRAY INHL,ORAL,10.2 GM Active INHALE 2 PUFFS BY MOUTH TWO TIMES A DAY FOR BREATHING. SHAKE WELL. RINSE MOUTH AND SPIT AFTER EACH USE. 3 Apr 24, 2020 [id number] August 22, 2019 LISSA OATES [facility] CALCIUM/VITAMIN D TAB No n-VA TAKE BY MOUTH ONCE A DAY Non-V A Documented by: PADMA LONG nted at: [facility] CARBOXYMETHYLCELLULOSE NA 0.5% SOLN,OPH Active INSTILL ONE DROP IN BOTH EYES FOUR TIMES A DAY FOR DRY EYES 15 Feb 01, 2020 [id number] September 03 0 NEDA SHAW [facility] DICLOFENAC NA 1% GEL,TOP Discontinued APPLY 2 GRAMS A FFECTED AREA TWO TIMES A DAY NEEDED FOR PAIN AND INFLAMMATION. DO NOT EXCEED 16GM DAILY TO ANY AFFECTED JOINT OF LOWER EXTREMITIES. DO NOT EXCEED 8GM DAILY TO ANY AFFECTED JOINT OF UPPER EXTREMITES. DO NOT EXCEED TOTAL DOSE OF 32GM DAILY FOR ALL JOINTS. 100 Oct 31, 2018 [id number] Oct 06, 2018 ANAYELI KIRKPATRICK [facility] DICLOFENAC NA 1% GEL,TOP APPLY 2 GRAMS A FFECTED AREA TWO TIMES A DAY NEEDED FOR PAIN AND INFLAMMATION. DO NOT EXCEED 16GM DAILY TO ANY AFFECTED JOINT OF LOWER EXTREMITIES. DO NOT EXCEED 8GM DAILY TO ANY AFFECTED JOINT OF UPPER EXTREMITES. DO NOT EXCEED TOTAL DOSE OF 32GM DAILY FOR ALL JOINTS. 100 Jan 17, 2019 [id number] Dec 20, 2018 PAMELA RAMSEY FLUTICASONE PROPIONATE 50MCG/SPRAY SOLN,NASAL,16GM Active INSTILL 1 SPRAY IN EACH NOSTRIL ONCE A DAY SHAKE GENTLY BEFORE USE! - MUST BE USED DIRECTED FOR 3 WEEKS TO PROVIDE BENEFIT. * NO EARLY REFILLS * 1UNIT = 30DAYS AT 4 PF/DAY OR 60DAYS AT 2PF/DAY 2 Dec 19, 2019 [id number] August 26, 2019 PAMELA RAMSEY KETOTIFEN 0.025% SOLN,OPH Active INSTILL 1 DROP IN BOTH EYES TWO TIMES A DAY FOR RELIEF OF ALLERGY SYMPTOMS IN EYE(S) Feb 01, 2020 [id number] September 04, 2019 NEDA SHAW [facility] LANCET,SOFTCLIX Active USE LANCET BIW FOR TESTING BL OOD GLUCOSE DIRECTED Sep 29, 2020 [id number] Sep 30, 2019 MAURICIO RANKIN LANCET,SOFTCLIX Discontinued USE LANCET BIW FO R TESTING BLOOD GLUCOSE DIRECTED Dec 19, 2019 [id number] Jun 06, 2019 PAMELA RAMSEY LANCET,SOFTCLIX Discontinued USE LANCET BIW FO R TESTING BLOOD GLUCOSE DIRECTED Jul 25, 2019 [id number] Nov 12, 2018 PAMELA RAMSEY LISINOPRIL 40MG TAB Non- VA TAKE ONE-HALF TABLET BY MOUTH EVERY MORNING Non-VA Documented by: PAMELA RAMSEY nted at: [facility] LORATADINE/PSEUDOEPHEDRINE TAB,SA Non-VA TAKE BY MOUTH No n-VA Documented by: JUAN LANG nted at: ARTUR BLAS [facility] MAGNESIUM OXIDE 400MG TAB Non-VA TAKE [...] SHANIQUA SCHMIDT Docume nted at: [facility] OMEPRAZOLE 20MG CAP,EC Active TAKE 2 CAPSULES B Y MOUTH BEFORE BREAKFAST 30 MINUTES BEFORE EATING TO LOWER STOMACH ACID (REPLACES ACIPHEX) 180 Dec 19, 2019 [id number] August 26, 2019 PAMELA RAMSEY POLYETHYLENE GLYCOL [...] nted at: [facility] PREGABALIN 150MG CAP,ORAL Non-VA TAKE 1 CAPSULE BY MOUTH TWO TIMES A DAY Non-VA Docume nted by: PAMELA RAMSEY Docume nted at: [facility] SEMAGLUTIDE INJ,SOLN Non -VA INJECT SUBCUTANEOUSLY EVERY WEEK Non-VA Documented by: ANAYELI KIRKPATRICK Docume nted at: ARTUR BLAS [facility] TERBINAFINE HCL 1% CREAM,TOP Active APPLY LIGHT LY TO AFFECTED AREA TWO TIMES A DAY FOR INFECTION 90 Sep 23, 2020 [id number] Sep 24, 2019 ADRIEL HERNANDEZ UREA 20% CREAM,TOP Active APPLY LIGHTLY (20%) TO AFFECTED AREA TWO TIMES A DAY NEEDED TO PROMOTE HEALING,RUB IN UNTIL COMPLETELY ABSORBED*FOR TOPICAL USE ONLY* APPLY TO BOTH FEET DIRECTED. 90 Sep 25, 2020 [id number] Sep 26, 2019 ADRIEL HERNANDEZ Problems (Conditions): [...] Alcohol intake above recommended sensible limits Active 562074239 PADMA LONG [facility] Allergic conjunctivitis Active 200553278 [facility] Bilateral senile combined form cataracts of eyes Active [id number] 9108 [place] Luda [facility] Bilateral tinnitus Active [id number] BRIDGETTEMilaCHASTITY [facility] Coronary arteriosclerosis Active 51162454 September 08, 2014 Entered By: PADMA LONG Comment: hx of ptca to RCA several yrs. agoSeptember 08, 2014 Entered By: PADMA LONG Comment: heart cath 09/01/14, neg. / previous stent to RCA,, via abida meneses ks HATCHER, JENNEY R [facility] Diabetes mellitus Active 52284761 PAMELA RAMSEY [facility] Disorder of pancreas Active [id number] September 08, 2014 Entered By: PADMA LONG Comment: 2.5cm low density lseion in bodyMay 2014 Entered By: PADMA LONG Comment: question of communication with pancreatic ductMay 2014 Entered By: PADMA LONG Comment: favored to be cystic pancreatic cancerMay 2014 Entered By: PADMA LONG Comment: per abdominal CT 09/01/14, via abida meneses,PADMA Pradhan [facility] Dry eyes Active 409138071 [place] [facility] Gastro-esophageal reflux disease without esophagitis ( SNOMED CT 826959049) Active 614238865 ALF GUEVARA [facility] History of malignant neoplasm of lung Active 824438401 CHAPO BARRETO [facility] Hyperlipidemia (SNOMED CT 89388494) Active 07281052 PAMELA RAMESY [facility] Lung mass Active 468856328 September 08, 2014 E ntered By: PADMA [...] report- mod. differentiated bronchogenic adenoca. 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 Active 54780014 KATHERINE MATT [facility] Obesity Active 307460485 [facility] Obstructive sleep apnea syndrome (SNOMED CT 84337196) Active 078037 015 [facility]IL[facility] D[facility] Pancreatic cyst Active 61756861 JAYLENE GUEVARA [facility] Papilloma of right eyelid Active [id number] NEDA SHAW [facility] Polyp of colon Active 63940396 Jan 23 Entered By: PADMA LONG Comment: c-scope 01/17/16, multiple benign colonic polypsJun 28, 2017 Entered By: PADMA LONG Comment: c-scope,06/25/17,[facility], three benign polyps- sigmoid colon, transverse colon,cecum. see path report cprs [facility] Pulmonary emphysema Active 23663081 0 BRIANA GAVIN [facility] Sensorineural hearing loss, bilateral Active 732569407 CHASTITY JEAN [facility] Snoring Active 59390320 SONG BULLOCK [facility] Type 2 diabetes mellitus without complication Active 776505665 N[place] SHAW [facility] Environmental Allergies (ICD-9-CM 477.9) Inactive 477.9 Dec 18, 2017 PADMA LONG [facility] External hemorrhoids without mention of complication (ICD-9- CM 455.3) Inactive 455.3 Dec 18, 2017 PADMA LONG [facility] Impotence of organic origin (ICD-9-CM 607.84) Inactive 607.84 Dec 18, 2017 PADMA LONG [facility] Screening for Lipoid disorders (ICD-9-CM V77.91) Inactive V77.91 Jan 18, 2007 PADMA LONG [facility] Stye * (ICD-9-CM 373.11) Inactive 373.11 Dec 18, 201 8 Jan 18, 2007 Entered By: PADMA LONG Comment: bilat lower lids, chronic/recurrent PADMA LONG [facility] Tobacco Use Disorder, Continuous Inactive 305.1 Dec 18, 2017 Jan 18, 2007 Entered By: PADMA LONG Comment: one ppd PADMA LONG [facility] Radiology Reports: +/- 30 days of [...] BESSIE [facility] Signed: 09/22/2019 16:14 BESSIE BOWERS [facility]
--- OUTSIDE RECORDS SUMMARY | 2019-12-02 07:31 | XMS REPORT | Encounter Summary ---
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 Date/Time Encounter Type Encounter Description Reason Provider Source Sep 22, 2019 03:55 PM Outpatient Encounter ADMIN PAT ACTIVTIES (MASNO NCT) [facility] IHE Encounter Template Text not used by ME Assessments - Encounter Diagnoses No Data Provided [...] appointme nts. The data comes from all [place] treatment facilities. Appointment Date/Time Appointment Type Appointment Facili ty Name Sep 23, 2019 11:15 AM AMBULATORY - NONE [facility] Sep 23, 2019 11:30 AM AMBULATORY - MEDICINE [facility] Oct 07, 2019 09:15 AM AMBULATORY - NONE [facility] 15 Dec 31, 2019 11:00 AM AMBULATORY - NONE ARTUR BLAS [facility] Dec 31, 2019 01:15 PM AMBULATORY - MEDICINE ARTUR LBAS [facility] Dec 31, 2019 01:16 PM AMBULATORY - MEDICINE ARTUR BLAS [facility] Jan 01, 2020 09:00 AM AMBULATORY - MEDICINE ARTUR BLAS [facility] Jan 07, 2020 12:00 PM [facility] Jan 27, 2020 01:00 PM AMBULATORY - MEDICINE [facility] Surgical Procedures: All associated to [...] Range Comment Sep 23, 2019 10:56 AM [facility] HEMOGLOBIN A1C Specimen Type: BLOOD [...] 0-99.9 Sep 23, 2019 10:56 AM [facility] URINALYSIS Specimen Type: URINE No comment entered. URINE COLOR Yellow SPECIFIC GRAVITY 1.009 1.005-1.030 UROBILINOGEN Negative mg/dL 0.1-1.0 URINE BILIRUBIN Negative Negative URINE KETONES Negative mg/dl Negative URINE GLUCOSE Negative mg/dL Negative URINE PROTEIN Negative mg/dl Negative-Tr zainab URINE PH 6.0 5-8 APPEARANCE,URINE Clear Clear URINE BLOOD Negative Negative URINE NITRITE Negative Negative LEUKOCYTE ESTERASE Negative Negative Sep 23, 2019 10:56 AM [facility] MICROALBUMIN (ANANT,WI) RANDO M URINE Specimen Type: URINE Comment: Microalbumin is below the linearity of the instrument, unable to calculate the albumin/creatinine ratio. *MICROALBUMIN,RAND < 5 ug/mL *MICROALB/CREAT canc mcg/mg cr *UR PROTEIN < 6.8 mg/dL *UR CREATININE 37.4 mg/dL Not Available Sep 23, 2019 10:56 AM [facility] COMPREHENSIVE METABOLIC PA KELLE Specimen [...] >60 Sep 23, 2019 10:56 AM [facility] CBC & DIFF Specimen Type: [...] took place. Date/Time Smoking Status/Tobacco Use Comment [facility] Nov 23, 2017 09:51 AM CURRENT TOBACCO USER (READY TO QUIT) [facility] Nov 23, 2017 09:51 AM TOBACCO CESSATION REFERRAL DECLINED [facility] Nov 23, 2017 09:51 AM TOBACCO USER OFFERED MEDS [facility] Dec 18, 2016 08:55 AM NON-TOBACCO USER [facility] Dec 01, 2005 08:32 AM CURRENT NON-SMOKER [facility] Dec 01, 2005 08:32 AM LIFETIME NON-SMOKER [...] patient. The data comes from a ll [place] treatment facilities. It does not list Allergies/ADRs that were removed or entered in error. Some allergies/ADRs may be reported in t he Immunization section. Allergen Event Date Event Type Reaction(s) Severity Source [place] September 08, 2014 Propensity to adverse reactions to drug (diso rder) [facility] 15 PLA[place] September 08, 2014 Propensity to adverse reactions to drug (diso rder) [facility] 15 Medications: VA dispensed (-15 months) and Non-VA Documented (Obtained Outside V A) Section Date Range: 1) prescriptions processed by a VA pharmacy in the last 15 m [facility], and 2) all medications recorded in the [place] medical record as "non-VA medic ations". Pharmacy terms refer to VA pharmacy's work on prescriptions. VA patient s are advised to take their medications as instructed by their health care team. The data comes from all [place] treatment facilities. Glossary of Pharmacy Terms:Active = A prescription that can be filled at the local [place] pharmacy.Active: On Hold = An active prescription [...] TEST BLOOD GLUCOSE 50 Dec 19, 2019 [id number] September 04, 2019 PAMELA RAMSEY ACCU-CHEK CHARLES PLUS (GLUCOSE) TEST STRIP Discontinued USE 1 STRIP FOR TESTING TWO TIMES PER WEEK - DIRECTED TO TEST BLOOD GLUCOSE 50 Jul 25, 2019 [id number] Nov 12, 2018 PAMELA RAMSEY ALBUTEROL SO4 90MCG/ACTUAT (CFC-F) INHL,ORAL,6.7GM Active INHALE 2 PUFFS BY ORAL INHALATION EVERY 4 HOURS NEEDED FOR BREATHING. SHAKE WELL. RINSE MOUTHPIECE FREQUENTLY TO PREVENT CLOGGING. USE NEEDED FOR SHORTNESS OF AIR/WHEEZING FOR BREATHING. SHAKE WELL. RINSE MOUTHPIECE FREQUENTLY TO PREVENT CLOGGING. USE NEEDED FOR SHORTNESS OF AIR/WHEEZING 1 Dec 19, 2019 [id number] September 04, 2019 PAMELA RAMSEY CBGUILLERMO ALCOHOL PREP PAD Active USE 1 PAD ON SKIN BIW TO CLEAN AND DISINFECT THE SKIN 200 Sep 29, 2020 [id number] Sep 30, 2019 CHUCHOPAMELLA FAUSTINLloyd [facility] ALCOHOL PREP PAD Discontinued USE 1 PAD ON SKIN BI W TO CLEAN AND DISINFECT THE SKIN 200 Dec 19, 2019 [id number] Jun 06, 2019 PAMELA RAMSEY ALCOHOL PREP PAD Discontinued USE 1 PAD ON SKIN BI W TO CLEAN AND DISINFECT THE SKIN 200 Jul 25, 2019 [id number] Nov 12, 2018 PAMELA RAMSEY ASCORBIC ACID 250MG TAB Non-VA TAKE ONE TABLET BY MOUTH ONCE A DAY Non-VA Documented by: SHANIQUA SCHMIDT nted at: [facility] ASPIRIN 25MG/DIPYRIDAMOLE 200MG CAP,SA Active T CHAPIN 1 CAPSULE BY MOUTH TWO TIMES A DAY - SWALLOW WHOLE. DO NOT CRUSH OR CHEW. FOR RECURRENT TIA/STROKE 180 Dec 19, 2019 [id number] Dec 20, 2018 PAMELA RAMSEY ASPIRIN 25MG/DIPYRIDAMOLE 200MG CAP,SA Discontinued T CHAPIN 1 CAPSULE BY MOUTH TWO TIMES A DAY - SWALLOW WHOLE. DO NOT CRUSH OR CHEW. FOR RECURRENT TIA/STROKE 180 Feb 06, 2019 [id number] Sep 28, 2018 ZACHARY GRECO [facility] ASPIRIN 81MG TAB,EC Non- VA TAKE ONE TABLET BY MOUTH ONCE A DAY Non-VA Documented by: PADMA LONG nted at: [facility] ATORVASTATIN CA 80MG TAB Active TAKE ONE TABLET BY MOUTH AT BEDTIME FOR CHOLESTEROL - REPORT ANY UNEXPLAINED MUSCLE PAIN/WEAKNESS TO YOUR PROVIDER 90 Dec 19, 2019 [id number] September 04, 2019 PAMELA RAMSEY ATORVASTATIN CA 80MG TAB Discontinued TAKE ONE TABLET BY MOUTH AT BEDTIME FOR CHOLESTEROL - REPORT ANY UNEXPLAINED MUSCLE PAIN/WEAKNESS TO YOUR PROVIDER 90 Dec 20, 2018 [id number] Nov 12, 2018 PAMELA RAMSEY BUDESONIDE 160MCG/FORMOTEROL FUM 4.5MCG/SPRAY INHL,ORAL,10.2 GM Active INHALE 2 PUFFS BY MOUTH TWO TIMES A DAY FOR BREATHING. SHAKE WELL. RINSE MOUTH AND SPIT AFTER EACH USE. 3 Apr 24, 2020 [id number] August 22, 2019 LISSA OATES [facility] CALCIUM/VITAMIN D TAB No n-VA TAKE BY MOUTH ONCE A DAY Non-V A Documented by: PADMA LONG nted at: [facility] CARBOXYMETHYLCELLULOSE NA 0.5% SOLN,OPH Active INSTILL ONE DROP IN BOTH EYES FOUR TIMES A DAY FOR DRY EYES 15 Feb 01, 2020 [id number] September 03 0 NEDA SHAW [facility] [...] FOR ALL JOINTS. 100 Oct 31, 2018 [id number] Oct 06, 2018 ANAYELI K[facility]ATRICK [facility] [...] FOR ALL JOINTS. 100 Jan 17, 2019 [id number] Dec 20, 2018 PAMELA RAMSEY FLUTICASONE PROPIONATE 50MCG/SPRAY SOLN,NASAL,16GM Active INSTILL 1 SPRAY IN EACH NOSTRIL ONCE A DAY SHAKE GENTLY BEFORE USE! - MUST BE USED DIRECTED FOR 3 WEEKS TO PROVIDE BENEFIT. * NO EARLY REFILLS * 1UNIT = 30DAYS AT 4 PF/DAY OR 60DAYS AT 2PF/DAY 2 Dec 19, 2019 [id number] August 26, 2019 PAMELA RAMSEY KETOTIFEN 0.025% SOLN,OPH Active INSTILL 1 DROP IN BOTH EYES TWO TIMES A DAY FOR RELIEF OF ALLERGY SYMPTOMS IN EYE(S) Feb 01, 2020 [id number] September 04, 2019 NEDA SHAW [facility] LANCET,SOFTCLIX Active USE LANCET BIW FOR TESTING BL OOD GLUCOSE DIRECTED 100 Sep 29, 2020 [id number] Sep 30, 2019 [facility] [facility] LANCET,SOFTCLIX Discontinued USE LANCET BIW FO R TESTING BLOOD GLUCOSE DIRECTED 100 Dec 19, 2019 [id number] Jun 06, 2019 PAMELA RAMSEY LANCET,SOFTCLIX Discontinued USE LANCET BIW FO R TESTING BLOOD GLUCOSE DIRECTED Jul 25, 2019 [id number] Nov 12, 2018 PAMELA RAMSEY LISINOPRIL 40MG TAB Non- VA TAKE ONE-HALF TABLET BY MOUTH EVERY MORNING Non-VA Documented by: PAMELA RAMSEY nted at: [facility] LORATADINE/PSEUDOEPHEDRINE TAB,SA Non-VA TAKE BY MOUTH No n-VA Documented by: JUAN LANGume nted at: ARTUR BLAS [facility] MAGNESIUM OXIDE 400MG TAB Non-VA TAKE ONE [...] ACID (REPLACES ACIPHEX) 180 Dec 19, 2019 [id number] August 26, 2019 PAMELA RAMSEY POLYETHYLENE GLYCOL [...] by: ANAYELI KIRKPATRICK Docume nted at: ARTUR BALS [facility] TERBINAFINE HCL 1% CREAM,TOP Active APPLY LIGHT LY TO AFFECTED AREA TWO TIMES A DAY FOR INFECTION 90 Sep 23, 2020 [id number] Sep 24, 2019 ADRIEL HERNANDEZ UREA 20% CREAM,TOP Active APPLY LIGHTLY (20%) TO AFFECTED AREA TWO TIMES A DAY NEEDED TO PROMOTE HEALING,RUB IN UNTIL COMPLETELY ABSORBED*FOR TOPICAL USE ONLY* APPLY TO BOTH FEET DIRECTED. 90 Sep 25, 2020 [id number] Sep 26, 2019 ADRIEL HERNANDEZ Problems (Conditions): [...] Alcohol intake above recommended sensible limits Active 249122411 PADMA LONG [facility] Allergic conjunctivitis Active 811280195 RENOFACUNDONEDA J [facility] Bilateral senile combined form cataracts of eyes Active 65577426325 9108 COLINFACUNDONEDA J [facility] Bilateral tinnitus Active [id number] CHASTITY JEAN [facility] Coronary arteriosclerosis Active [id number] September 08, 2014 Entered By: PADMA LONG Comment: hx of ptca to RCA several yrs. agoSeptember 08, 2014 Entered By: PADMA LONG Comment: heart cath 09/01/14, neg. / previous stent to RCA,, [facility] KALA JONES [facility] Diabetes mellitus Active 45942439 PAMELA RAMSEY [facility] Disorder of pancreas Active 5441068 September 08, 2014 Entered By: PADMA LONG Comment: 2.5cm low density lseion in bodyMay 2014 Entered By: PADMA LONG Comment: question of communication with pancreatic ductMay 2014 Entered By: PADMA LONG Comment: favored to be cystic pancreatic cancerMay 2014 Entered By: PADMA LONG Comment: per abdominal CT 09/01/14, via abida meneses,ri PADMA LONG [facility] Dry eyes Active 219907014 RENONEDA J PORSHA [place] [facility] Gastro-esophageal reflux disease without esophagitis ( SNOMED CT 643860503) Active 200576205 ALF GUEVARA [facility] History of malignant neoplasm of lung Active 401905895 CHAPO BARRETO [facility] Hyperlipidemia (SNOMED CT 95390326) Active 29680162 PAMELA RAMSEY [facility] Lung mass Active 965575569 September 08, 2014 E ntered By: PADMA [...] uncertain behavior of skin of eyelid Active 95379423 KATHERINE MATT [facility] Obesity Active 079664991 [facility] Obstructive sleep apnea syndrome (SNOMED CT 56535669) Active 858039 015 PHILIPPE DOUGLASS [facility] Pancreatic cyst Active 71598336 JAYLENE GUEVARA [facility] Papilloma of right eyelid Active [id number] NEDA SHAW [facility] Polyp of colon Active 15189728 Jan 23 Entered By: PADMA LONG Comment: c-scope 01/17/16, multiple benign colonic polypsJun 28, 2017 Entered By: PADMA LONG Comment: c-scope,06/25/17,ks-[facility], three benign polyps- sigmoid colon, transverse colon,cecum. see path report cprs SHARRON TORRES [facility] Pulmonary emphysema Active 78896833 0 BRIANA GAVIN [facility] Sensorineural hearing loss, bilateral Active 391526239 CHASTITY JEAN [facility] Snoring Active 63537637 SONG BULLOCK [facility] Type 2 diabetes mellitus without complication Active 667715029 NEDA SHAW [facility] Environmental Allergies (ICD-9-CM 477.9) Inactive 477.9 Dec 18, 2017 PADMA LONG [facility] External hemorrhoids without mention of complication (ICD-9- CM 455.3) Inactive 455.3 Dec 18, 2017 PADMA LONG [facility] Impotence of organic origin (ICD-9-CM 607.84) Inactive 607.84 Dec 18, 2017 PADMA LONG [facility] Screening for Lipoid disorders (ICD-9-CM V77.91) Inactive V77.91 Jan 18, 2007 PADMA LONG [facility] Stye * (ICD-9-CM 373.11) Inactive 373.11 Dec 18, 201 8 Jan 18, 2007 Entered By: PADMA LONG Comment: bilat lower lids, chronic/recurrent PADMA LONG [facility] Tobacco Use Disorder, [...] 2019 03:55 PM ADMINISTRATIVE NOTE: LOCAL TITLE: WI-ADMIN MSA STANDARD TITLE: ADMINISTRATIVE NOTE DATE OF NOTE: SEP 22, 2019@15:55 ENTRY DATE: SEP 22, 2019@15:55:50 AUTHOR: CHERRIE JONESIGNER: URGENCY: STATUS: COMPLETED MSA Administrative Note: Patient was contacted prior to his/her upcoming appointment: Unable to reach patient by phone Administrative notes: Unable to screen for COVID19. /es/ CHERRIE JONES MSA Signed: 09/22/2019 15:56 CHERRIE JONES OC
--- OUTSIDE RECORDS SUMMARY | 2019-12-02 07:32 | XMS REPORT | Encounter Summary ---
Author Author Department [facility] HERBERTH kline Organization Department of [facility] Address [address] [place] [address] Phone Unavailable Care Team Providers Care Computer Network Specialist Name Role Phone MARYADRIEL PCP Unavailable Insurance Providers: All historical and current No Data Provided for This Section Selected Encounter This section includes the information on record at [place] for the Encounter. Date/Time Encounter Type Encounter Description Reason Provider Source Oct 23, 2019 09:46 AM Outpatient Encounter ADMIN PAT ACTIVTIES (MASNO NCT) [facility] 15 IHE Encounter Template Text not used by [place] Assessments - Encounter Diagnoses No Data Provided for This Section Plan of Treatment: Future Appointments (+ 6 months) and Future Tests (+/- 45 day s) The Plan of Treatment section includes future care activities for the patient fr om all [place] treatment facilities. This section includes future appointments and fu ture orders which are active, pending or scheduled. Future Appointments This section includes appointments that were scheduled t o occur 6 months from the date of the Encounter, up to a maximum of 20 appointme nts. The data comes from all [place] treatment facilities. Appointment Date/Time Appointment Type Appointment Facili ty Name Dec 31, 2019 11:00 AM AMBULATORY - NONE ARTUR BLAS [facility] Dec 31, 2019 01:15 PM AMBULATORY - MEDICINE ARTUR BLAS [facility] Dec 31, 2019 01:16 PM AMBULATORY - MEDICINE ARTUR BLAS [facility] Jan 01, 2020 09:00 AM AMBULATORY - MEDICINE ARTUR BLAS [facility] Jan 07, 2020 12:00 PM AMBULATORY - MEDICINE [facility] Jan 27, 2020 01:00 PM AMBULATORY - MEDICINE MARLENE KEYS V [facility] Mar 31, 2020 09:30 AM AMBULATORY - MEDICINE [facility] Mar 31, 2020 09:31 AM AMBULATORY - MEDICINE ARTUR BLAS [facility] Mar 31, 2020 10:00 AM AMBULATORY - MEDICINE [facility] Mar 31, 2020 10:01 AM AMBULATORY - MEDICINE ARTUR BLAS [facility] Apr 07, 2020 08:00 AM AMBULATORY - NONE [facility] Active, Pending, and Scheduled Orders [...] the Encounter. The data comes from all [facility]. Test Date/Time Test Type Test Details Facility Name Nov 17, 2019 07:23 AM Consult Order [facility] [id number] Cons [employer] Professor's Choice ARTUR LudaJuan M SIMSMila [facility] Surgical Procedures: All associated to the [...] patient. The data comes from a ll [place] treatment facilities. It does not list Allergies/ADRs that were removed or entered in error. Some allergies/ADRs may be reported in t he Immunization section. Allergen Event Date Event Type Reaction(s) Severity Source [place] September 08, 2014 Propensity to adverse reactions to drug (diso rder) [facility] [place] September 08, 2014 Propensity to adverse reactions to drug (diso rder) [facility] Medications: VA dispensed (-15 months) and Non-VA Documented (Obtained Outside V A) Section Date Range: 1) prescriptions processed by a VA pharmacy in the last 15 m [facility], and 2) all medications recorded in the [place] medical record as "non-VA medic ations". Pharmacy terms refer to VA pharmacy's work on prescriptions. VA patient s are advised to take their medications as instructed by their health care team. The data comes from all [place] treatment facilities. Glossary of Pharmacy Terms:Active = A prescription that can be filled at the local [place] pharmacy.Active: On Hold = An active prescription that will not be filled until pharmacy resolves the issue.Active: Susp = An active prescription that is not scheduled to be filled yet.Clinic Order = A medication received during a visit to a [place] clinic or emergency department (currently not available).Discontinued [...] other providers that was filled outside the [place]. Or, it may be an over the [...] TEST BLOOD GLUCOSE 50 Dec 19, 2019 [id number] September 04, 2019 PAMELA RAMSEY ACCU-CHEK CHARLES PLUS (GLUCOSE) TEST STRIP Discontinued USE 1 STRIP FOR TESTING TWO TIMES PER WEEK - DIRECTED TO TEST BLOOD GLUCOSE 50 Jul 25, 2019 [id number] Nov 12, 2018 PAMELA RAMSEY ALBUTEROL SO4 90MCG/ACTUAT (CFC-F) INHL,ORAL,6.7GM Active INHALE 2 PUFFS BY ORAL INHALATION EVERY 4 HOURS NEEDED FOR BREATHING. SHAKE WELL. RINSE MOUTHPIECE FREQUENTLY TO PREVENT CLOGGING. USE NEEDED FOR SHORTNESS OF AIR/WHEEZING FOR BREATHING. SHAKE WELL. RINSE MOUTHPIECE FREQUENTLY TO PREVENT CLOGGING. USE NEEDED FOR SHORTNESS OF AIR/WHEEZING 1 Dec 19, 2019 [id number] September 04, 2019 [facility] ALCOHOL PREP PAD Active USE 1 PAD ON SKIN BIW TO CLEAN AND DISINFECT THE SKIN 200 Sep 29, 2020 [id number] Sep 30, 2019 MAURICIO RANKIN [facility] ALCOHOL PREP PAD Discontinued USE 1 PAD ON SKIN BI W TO CLEAN AND DISINFECT THE SKIN 200 Dec 19, 2019 [id number] Jun 06, 2019 [facility] ALCOHOL PREP PAD Discontinued USE 1 PAD ON SKIN BI W TO CLEAN AND DISINFECT THE SKIN 200 Jul 25, 2019 [id number] Nov 12, 2018 [facility] ASCORBIC ACID 250MG TAB Non-VA TAKE ONE TABLET BY MOUTH ONCE A DAY Non-VA Documented by: SHANIQUA SCHMIDT nted at: [facility] ASPIRIN 25MG/DIPYRIDAMOLE 200MG CAP,SA Active T CHAPIN 1 CAPSULE BY MOUTH TWO TIMES A DAY - SWALLOW WHOLE. DO NOT CRUSH OR CHEW. FOR RECURRENT TIA/STROKE 180 Dec 19, 2019 [id number] Dec 20, 2018 [facility] ASPIRIN 25MG/DIPYRIDAMOLE 200MG CAP,SA Discontinued T CHAPIN 1 CAPSULE BY MOUTH TWO TIMES A DAY - SWALLOW WHOLE. DO NOT CRUSH OR CHEW. FOR RECURRENT TIA/STROKE 180 Feb 06, 2019 [id number] Sep 28, 2018 ZACHARY GRECO ASPIRIN 81MG TAB,EC Non- VA TAKE ONE TABLET BY MOUTH ONCE A DAY Non-VA Documented by: PADMA LONG nted at: [facility] ATORVASTATIN CA 80MG TAB Active TAKE ONE TABLET BY MOUTH AT BEDTIME FOR CHOLESTEROL - REPORT ANY UNEXPLAINED MUSCLE PAIN/WEAKNESS TO YOUR PROVIDER 90 Dec 19, 2019 [id number] September 04, 2019 PAMELA RAMSEY ATORVASTATIN CA 80MG TAB Discontinued TAKE ONE TABLET BY MOUTH AT BEDTIME FOR CHOLESTEROL - REPORT ANY UNEXPLAINED MUSCLE PAIN/WEAKNESS TO YOUR PROVIDER 90 Dec 20, 2018 [id number] Nov 12, 2018 PAMELA RAMSEY BUDESONIDE 160MCG/FORMOTEROL FUM 4.5MCG/SPRAY INHL,ORAL,10.2 GM Active INHALE 2 PUFFS BY MOUTH TWO TIMES A DAY FOR BREATHING. SHAKE WELL. RINSE MOUTH AND SPIT AFTER EACH USE. 3 Apr 24, 2020 [id number] August 22, 2019 [facility] CALCIUM/VITAMIN D TAB No n-VA TAKE BY MOUTH ONCE A DAY Non-V A Documented by: PADMA LONG nted at: [facility] CARBOXYMETHYLCELLULOSE NA 0.5% SOLN,OPH Active INSTILL ONE DROP IN BOTH EYES FOUR TIMES A DAY FOR DRY EYES 15 Feb 01, 2020 [id number] September 03 0 NEDA SHAW [facility] DICLOFENAC NA 1% GEL,TOP Discontinued APPLY 2 GRAMS A FFECTED AREA TWO TIMES A DAY NEEDED FOR PAIN AND INFLAMMATION. DO NOT EXCEED 16GM DAILY TO ANY AFFECTED JOINT OF LOWER EXTREMITIES. DO NOT EXCEED 8GM DAILY TO ANY AFFECTED JOINT OF UPPER EXTREMITES. DO NOT EXCEED TOTAL DOSE OF 32GM DAILY FOR ALL JOINTS. 100 Oct 31, 2018 [id number] Oct 06, 2018 ANAYELI KIRKPATRICK [facility] DICLOFENAC NA 1% GEL,TOP APPLY 2 GRAMS A FFECTED AREA TWO TIMES A DAY NEEDED FOR PAIN AND INFLAMMATION. DO NOT EXCEED 16GM DAILY TO ANY AFFECTED JOINT OF LOWER EXTREMITIES. DO NOT EXCEED 8GM DAILY TO ANY AFFECTED JOINT OF UPPER EXTREMITES. DO NOT EXCEED TOTAL DOSE OF 32GM DAILY FOR ALL JOINTS. 100 Jan 17, 2019 [id number] Dec 20, 2018 PAMELA RAMSEY FLUTICASONE PROPIONATE 50MCG/SPRAY SOLN,NASAL,16GM Active INSTILL 1 SPRAY IN EACH NOSTRIL ONCE A DAY SHAKE GENTLY BEFORE USE! - MUST BE USED DIRECTED FOR 3 WEEKS TO PROVIDE BENEFIT. * NO EARLY REFILLS * 1UNIT = 30DAYS AT 4 PF/DAY OR 60DAYS AT 2PF/DAY 2 Dec 19, 2019 [id number] August 26, 2019 [facility] KETOTIFEN 0.025% SOLN,OPH Active INSTILL 1 DROP IN BOTH EYES TWO TIMES A DAY FOR RELIEF OF ALLERGY SYMPTOMS IN EYE(S) Feb 01, 2020 [id number] September 04, 2019 COLINNEDA J [facility] LANCET,SOFTCLIX Active USE LANCET BIW FOR TESTING BL OOD GLUCOSE DIRECTED 100 Sep 29, 2020 [id number] Sep 30, 2019 MAURICIO RANKIN [facility] LANCET,SOFTCLIX Discontinued USE LANCET BIW FO R TESTING BLOOD GLUCOSE DIRECTED 100 Dec 19, 2019 [id number] Jun 06, 2019 [facility] LANCET,SOFTCLIX Discontinued USE LANCET BIW FO R TESTING BLOOD GLUCOSE DIRECTED Jul 25, 2019 [id number] Nov 12, 2018 PAMELA RAMSEY LISINOPRIL 40MG TAB Non- VA TAKE ONE-HALF TABLET BY MOUTH EVERY MORNING Non-VA Documented by: PAMELA RAMSEY nted at: [facility] LORATADINE/PSEUDOEPHEDRINE TAB,SA Non-VA TAKE BY MOUTH No n-VA Documented by: JUAN LANG nted at: ARTUR BLAS [facility] MAGNESIUM OXIDE 400MG TAB Non-VA TAKE [...] ACID (REPLACES ACIPHEX) 180 Dec 19, 2019 [id number] August 26, 2019 PAMELA RAMSEY POLYETHYLENE GLYCOL [...] Documented by: KATHERINE MATT Docume nted at: [facility] PREGABALIN 150MG CAP,ORAL Non-VA TAKE 1 CAPSULE BY MOUTH TWO TIMES A DAY Non-VA Docume nted by: PAMELA RAMSEY Docume nted at: [facility] SEMAGLUTIDE INJ,SOLN Non -VA INJECT SUBCUTANEOUSLY EVERY WEEK Non-VA Documented by: ANAYELI KIRKPATRICK Docume nted at: [facility] TERBINAFINE HCL 1% CREAM,TOP Active APPLY LIGHT LY TO AFFECTED AREA TWO TIMES A DAY FOR INFECTION Sep 23, 2020 [id number] Sep 24, 2019 ADRIEL HERNANDEZ UREA 20% CREAM,TOP Active APPLY LIGHTLY (20%) TO AFFECTED AREA TWO TIMES A DAY NEEDED TO PROMOTE HEALING,RUB IN UNTIL COMPLETELY ABSORBED*FOR TOPICAL USE ONLY* APPLY TO BOTH FEET DIRECTED. Sep 25, 2020 [id number] Sep 26, 2019 ADRIEL HERNANDEZ Problems (Conditions): All historical and current Section Date Range: From patient's date of to the date document was create d. This section includes a list of Problems (Conditions) know n to VA for the patient. It includes both active and inacti ve problems (conditions). The data comes from all [place] treatment facilities. Problem Status Problem Code Date of Onset Date of Resolution Comm ent(s) Provider Source Alcohol intake above recommended sensible limits Active 090543058 PADMA LONG [facility] Allergic conjunctivitis Active 096113106 [facility] Bilateral senile combined form cataracts of eyes Active [id number] 9108 [place] [place] [facility] Bilateral tinnitus Active [id number] CHASTITY JEAN [facility] Coronary arteriosclerosis Active 83555750 September 08, 2014 Entered By: PADMA LONG Comment: hx of ptca to RCA several yrs. agoSeptember 08, 2014 Entered By: PADMA LONG Comment: heart cath 09/01/14, neg. / previous stent to RCA,, via abida meneses ks HATCHER, JENNEY R ROBERT [facility] Diabetes mellitus Active 34752876 PAMELA RAMSEY [facility] Disorder of pancreas Active 9623448 September 08, 2014 Entered By: PADMA LONG Comment: 2.5cm low density lseion in bodyMay 2014 Entered By: PADMA LONG Comment: question of communication with pancreatic ductMay 2014 Entered By: PADMA LONG Comment: favored to be cystic pancreatic cancerMay 2014 Entered By: PADMA LONG Comment: per abdominal CT 09/01/14, via abida meneses ks FRAZIER, JAY J [facility] Dry eyes Active 500732426 [place] SHAW Juan M [facility] Gastro-esophageal reflux disease without esophagitis ( SNOMED CT 586109806) Active 541388253 ALF GUVEARA [facility] History of malignant neoplasm of lung Active 880240433 CHAPO BARRETO [facility] Hyperlipidemia (SNOMED CT 23533830) Active 68734182 PAMELA RAMSEY [facility] Lung mass Active 398235921 September 08, 2014 E ntered By: PADMA [...] report- mod. differentiated bronchogenic adenoca. 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 Active 52297378 KATHERINE MATT [facility] Obesity Active 461066958 [facility] Obstructive sleep apnea syndrome (SNOMED CT 05677279) Active 356264 015 PHILIPPE DOUGLSAS [facility] Pancreatic cyst Active 01974149 JAYLENE GUEVARA [facility] Papilloma of right eyelid Active [id number] [place] SHAW [facility] Polyp of colon Active 36813971 Jan 23 Entered By: PADMA LONG Comment: c-scope 01/17/16, multiple benign colonic polypsJun 28, 2017 Entered By: PADMA LONG Comment: c-scope,06/25/17,[facility], three benign polyps- sigmoid colon, transverse colon,cecum. see path report cprs SHARRON TORRES [facility] Pulmonary emphysema Active 75372913 0 BRIANA GAVIN [facility] Sensorineural hearing loss, bilateral Active 579469556 CHASTITY JEAN [facility] Snoring Active 43188343 S[place] BULLOCK [facility] Type 2 diabetes mellitus without complication Active 442500259 [place] [facility] Environmental Allergies (ICD-9-CM 477.9) Inactive 477.9 Dec 18, 2017 PADMA LONG [facility] External hemorrhoids without mention of complication (ICD-9- CM 455.3) Inactive 455.3 Dec 18, 2017 PADMA LONG [facility] Impotence of organic origin (ICD-9-CM 607.84) Inactive 607.84 Dec 18, 2017 PADMA LONG [facility] Screening for Lipoid disorders (ICD-9-CM V77.91) Inactive V77.91 Jan 18, 2007 [facility] Stye * (ICD-9-CM 373.11) Inactive 373.11 Dec 18, 201 8 Jan 18, 2007 Entered By: PADMA LONG Comment: bilat lower lids, chronic/recurrent [facility] Tobacco Use Disorder, Continuous Inactive 305.1 Dec 18, 2017 Jan 18, 2007 Entered By: PADMA LONG Comment: one ppd PADMA LONG [facility] Radiology Reports: +/- 30 days of [...] DATE: OCT 23, 2019@09:46:27 AUTHOR: MATHEW KRUGER COSIGNER: URGENCY: STATUS: COMPLETED The following Non VA Care consult has been completed. See scanned document for report. NON VA Care Consult Results Radiology Comment: [facility]/10/07/2019 /gisell/ AIMEE KRUGER [facility] Signed: 10/23/2019 09:47 AIMEE KRUGER [facility]
--- OUTSIDE RECORDS SUMMARY | 2019-12-02 07:32 | XMS REPORT | Encounter Summary ---
Author [facility] Affai rs Address [address] [place] [address] Phone Unavailable Care Team Providers Care Program Management Specialist Name Role Phone ADRIEL HERNANDEZ PCP Unavailable Insurance Providers: All historical and current No Data Provided for This Section Selected Encounter This section includes the information on record at [place] for the Encounter. 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 Appointment Date/Time Appointment Type Appointment Facili ty Name Sep 23, 2019 11:15 AM [facility] Sep 23, 2019 11:30 AM [facility] - MEDICINE [facility] Oct 07, 2019 09:15 AM AMBULATORY - NONE [facility] Dec 31, 2019 11:00 AM AMBULATORY - NONE [facility] BLAS [facility] Dec 31, 2019 01:15 PM AMBULATORY - MEDICINE [facility] BLAS [facility] Dec 31, 2019 01:16 PM AMBULATORY - MEDICINE [facility] Jan 01, 2020 09:00 AM AMBULATORY - MEDICINE [facility] Jan 07, 2020 12:00 PM [facility] Jan 27, 2020 01:00 PM AMBULATORY - MEDICINE [facility] Surgical Procedures: All associated to the encounter [...] 15 YRS OR MORE PORSHA BLAS [facility] Tobacco Use History This section includes a history of the smoking, or tobacco -related health factors, that were collected on or before the date of the Encoun ter. The data comes from the [place] facility where the Encounter took place. Date/Time Smoking Status/Tobacco Use Comment Facil it Jun 26, 2018 02:13 PM VA-TOBACCO QUIT 15 YRS OR MORE PORSHA Mckayla BLAS [facility] Jun 27, 2017 01:39 PM NON-TOBACCO USER [facility]UR BL[facility] Jun 27, 2017 01:16 PM NON-TOBACCO USER [facility] Jan 06, 2015 02:07 PM NON-TOBACCO USER [facility] BLAS [facility] Nov 23, 2014 10:38 AM NON-TOBACCO USER [facility] Oct 26, 2014 10:36 AM NON-TOBACCO USER [facility]UR BLAS [facility] Oct 14, 2014 11:09 AM NON-TOBACCO USER [facility] BLAS [facility] Advance Directives: All historical [...] to adverse reactions to drug (diso rder) [facility] 15 PLAVIX September 08, 2014 Propensity to adverse reactions to drug (diso rder) [facility] 15 Medications: VA dispensed [...] other providers that was filled outside the [place]. Or, it may be an over the [...] TEST BLOOD GLUCOSE 50 Dec 19, 2019 [id number] September 04, 2019 PAMELA RAMSEY ACCU-CHEK CHARLES PLUS (GLUCOSE) TEST STRIP Discontinued USE 1 STRIP FOR TESTING TWO TIMES PER WEEK - DIRECTED TO TEST BLOOD GLUCOSE 50 Jul 25, 2019 [id number] Nov 12, 2018 PAMELA RAMSEY ALBUTEROL SO4 90MCG/ACTUAT (CFC-F) INHL,ORAL,6.7GM Active INHALE 2 PUFFS BY ORAL INHALATION EVERY 4 HOURS NEEDED FOR BREATHING. SHAKE WELL. RINSE MOUTHPIECE FREQUENTLY TO PREVENT CLOGGING. USE NEEDED FOR SHORTNESS OF AIR/WHEEZING FOR BREATHING. SHAKE WELL. RINSE MOUTHPIECE FREQUENTLY TO PREVENT CLOGGING. USE NEEDED FOR SHORTNESS OF AIR/WHEEZING 1 Dec 19, 2019 [id number] September 04, 2019 PAMELA RAMSEY CBGUILLERMO ALCOHOL PREP PAD Active USE 1 PAD ON SKIN BIW TO CLEAN AND DISINFECT THE SKIN 200 Sep 29, 2020 [id number] Sep 30, 2019 MAURICIO RANKIN [facility] ALCOHOL PREP PAD Discontinued USE 1 PAD ON SKIN BI W TO CLEAN AND DISINFECT THE SKIN 200 Dec 19, 2019 [id number] Jun 06, 2019 PAMELA RAMSEY CBGUILLERMO ALCOHOL PREP PAD Discontinued USE 1 PAD ON SKIN BI W TO CLEAN AND DISINFECT THE SKIN 200 Jul 25, 2019 [id number] Nov 12, 2018 PAMELA RAMSEY CBGUILLERMO ASCORBIC ACID 250MG TAB Non-VA TAKE ONE TABLET BY MOUTH ONCE A DAY Non-VA Documented by: SHANIQUA SCHMIDT nted at: [facility] ASPIRIN 25MG/DIPYRIDAMOLE 200MG CAP,SA Active T CHAPIN 1 CAPSULE BY MOUTH TWO TIMES A DAY - SWALLOW WHOLE. DO NOT CRUSH OR CHEW. FOR RECURRENT TIA/STROKE 180 Dec 19, 2019 [id number] Dec 20, 2018 PAMELA RAMSEY [facility] ASPIRIN 25MG/DIPYRIDAMOLE 200MG CAP,SA Discontinued T CHAPIN 1 CAPSULE BY MOUTH TWO TIMES A DAY - SWALLOW WHOLE. DO NOT CRUSH OR CHEW. FOR RECURRENT TIA/STROKE 180 Feb 06, 2019 [id number] Sep 28, 2018 ZACHARY RGECO V [facility] ASPIRIN 81MG TAB,EC Non- VA TAKE ONE TABLET BY MOUTH ONCE A DAY Non-VA Documented by: PADMA LONG nted at: [facility] ATORVASTATIN CA 80MG TAB Active TAKE ONE TABLET BY MOUTH AT BEDTIME FOR CHOLESTEROL - REPORT ANY UNEXPLAINED MUSCLE PAIN/WEAKNESS TO YOUR PROVIDER 90 Dec 19, 2019 [id number] September 04, 2019 PAMELA ARMSEY ATORVASTATIN CA 80MG TAB Discontinued TAKE ONE TABLET BY MOUTH AT BEDTIME FOR CHOLESTEROL - REPORT ANY UNEXPLAINED MUSCLE PAIN/WEAKNESS TO YOUR PROVIDER 90 Dec 20, 2018 [id number] Nov 12, 2018 PAMELA RAMSEY GUILLERMO BUDESONIDE 160MCG/FORMOTEROL FUM 4.5MCG/SPRAY INHL,ORAL,10.2 GM Active INHALE 2 PUFFS BY MOUTH TWO TIMES A DAY FOR BREATHING. SHAKE WELL. RINSE MOUTH AND SPIT AFTER EACH USE. 3 Apr 24, 2020 [id number] August 22, 2019 LISSA OATES [facility] CALCIUM/VITAMIN D TAB No n-VA TAKE BY MOUTH ONCE A DAY Non-V A Documented by: PADMA LONG nted at: [facility] CARBOXYMETHYLCELLULOSE NA 0.5% SOLN,OPH Active INSTILL ONE DROP IN BOTH EYES FOUR TIMES A DAY FOR DRY EYES 15 Feb 01, 2020 [id number] September 03 0 [facility] SHAW [facility] [...] FOR ALL JOINTS. 100 Oct 31, 2018 [id number] Oct 06, 2018 ANAYELI KIRKPATRICK [facility] DICLOFENAC NA 1% GEL,TOP APPLY 2 GRAMS A FFECTED AREA TWO TIMES A DAY NEEDED FOR PAIN AND INFLAMMATION. DO NOT EXCEED 16GM DAILY TO ANY AFFECTED JOINT OF LOWER EXTREMITIES. DO NOT EXCEED 8GM DAILY TO ANY AFFECTED JOINT OF UPPER EXTREMITES. DO NOT EXCEED TOTAL DOSE OF 32GM DAILY FOR ALL JOINTS. 100 Jan 17, 2019 [id number] Dec 20, 2018 PAMELA RAMSEY FLUTICASONE PROPIONATE 50MCG/SPRAY SOLN,NASAL,16GM Active INSTILL 1 SPRAY IN EACH NOSTRIL ONCE A DAY SHAKE GENTLY BEFORE USE! - MUST BE USED DIRECTED FOR 3 WEEKS TO PROVIDE BENEFIT. * NO EARLY REFILLS * 1UNIT = 30DAYS AT 4 PF/DAY OR 60DAYS AT 2PF/DAY 2 Dec 19, 2019 [id number] August 26, 2019 PAMELA RAMSEY KETOTIFEN 0.025% SOLN,OPH Active INSTILL 1 DROP IN BOTH EYES TWO TIMES A DAY FOR RELIEF OF ALLERGY SYMPTOMS IN EYE(S) Feb 01, 2020 [id number] September 04, 2019 [facility] SHAW [facility] LANCET,SOFTCLIX Active USE LANCET BIW FOR TESTING BL OOD GLUCOSE DIRECTED Sep 29, 2020 [id number] Sep 30, 2019 MAURICIO RANKIN LANCET,SOFTCLIX Discontinued USE LANCET BIW FO R TESTING BLOOD GLUCOSE DIRECTED Dec 19, 2019 [id number] Jun 06, 2019 PAMELA RAMSEY LANCET,SOFTCLIX Discontinued USE LANCET BIW FO R TESTING BLOOD GLUCOSE DIRECTED Jul 25, 2019 [id number] Nov 12, 2018 PAMELA RAMSEY LISINOPRIL 40MG TAB Non- VA TAKE ONE-HALF TABLET BY MOUTH EVERY MORNING Non-VA Documented by: PAMELA RAMSEY Docume nted at: [facility] LORATADINE/PSEUDOEPHEDRINE TAB,SA Non-VA TAKE BY MOUTH No n-VA Documented by: JUAN LANG nted at: [facility] BLAS [facility] MAGNESIUM OXIDE 400MG TAB Non-VA TAKE [...] ACID (REPLACES ACIPHEX) 180 Dec 19, 2019 [id number] August 26, 2019 PAMELA RAMSEY POLYETHYLENE GLYCOL [...] Non-VA Documented by: KATHERINE MATT nted at: [facility] PREGABALIN 150MG CAP,ORAL Non-VA TAKE 1 CAPSULE BY MOUTH TWO TIMES A DAY Non-VA Docume nted by: PAMELA RAMSEY nted at: [facility] SEMAGLUTIDE INJ,SOLN Non -VA INJECT SUBCUTANEOUSLY EVERY WEEK Non-VA Documented by: ANAYELI KIRKPATRICKume nted at: [facility] [place] [facility] TERBINAFINE HCL 1% CREAM,TOP Active APPLY LIGHT LY TO AFFECTED AREA TWO TIMES A DAY FOR INFECTION Sep 23, 2020 [id number] Sep 24, 2019 ADRIEL HERNANDEZ UREA 20% CREAM,TOP Active APPLY LIGHTLY (20%) TO AFFECTED AREA TWO TIMES A DAY NEEDED TO PROMOTE HEALING,RUB IN UNTIL COMPLETELY ABSORBED*FOR TOPICAL USE ONLY* APPLY TO BOTH FEET DIRECTED. 90 Sep 25, 2020 [id number] Sep 26, 2019 ADRIEL [facility]DEZ [facility] [...] Alcohol intake above recommended sensible limits Active 562971110 PADMA LONG [facility] Allergic conjunctivitis Active 992086085 PARRISHNEDA [facility] Bilateral senile combined form cataracts of eyes Active [id number] 9108 [facility] Bilateral tinnitus Active [id number] CHASTITY JEAN [facility] Coronary arteriosclerosis Active [id number] September 08, 2014 Entered By: PADMA LONG Comment: hx of ptca to RCA several yrs. agoSeptember 08, 2014 Entered By: PADMA LONG Comment: heart cath 09/01/14, neg. / previous stent to RCA,, via abida meneses ks HATCHER, JENNEY R [facility] Diabetes mellitus Active 53751199 [facility] Disorder of pancreas Active 0056762 September 08, 2014 Entered By: PADMA LONG Comment: 2.5cm low density lseion in bodyMay 2014 Entered By: PADMA LONG Comment: question of communication with pancreatic ductMay 2014 Entered By: PADMA LONG Comment: favored to be cystic pancreatic cancerMay 2014 Entered By: PADMA LONG Comment: per abdominal CT 09/01/14, via abida meneses ks FRAZIER, JAY J [facility] Dry eyes Active 437358907 NEDA SHAW [facility] Gastro-esophageal reflux disease without esophagitis ( SNOMED CT 565460151) Active 428465444 [facility] History of malignant neoplasm of lung Active 547509861 CHAPO BARRETO [facility] Hyperlipidemia (SNOMED CT 15170460) Active 11175449 BRAULIOPAMELA [facility] Lung mass Active 184627941 September 08, 2014 E ntered By: PADMA [...] report- mod. differentiated bronchogenic adenoca. 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 Active 77972394 KATHERINE MATT [facility] Obesity Active 812430985 BULLOCKSONG RIDLEY [facility] Obstructive sleep apnea syndrome (SNOMED CT 47133596) Active 152541 015 PHILIPPE DOUGLASS [facility] Pancreatic cyst Active 53497592 JAYLENE AMEZCUA [facility] Papilloma of right eyelid Active [id number] NEDA SHAW [facility] Polyp of colon Active 18734188 Jan 23 16 Entered By: PADMA LONG Comment: c-scope 01/17/16, multiple benign colonic polypsJun 28, 2017 Entered By: PADMA LONG Comment: [facility] three benign polyps- sigmoid colon, transverse colon,cecum. see path report cprs SHARRON TORRES [facility] Pulmonary emphysema Active 43351667 0 BRIANA GAVIN [facility] Sensorineural hearing loss, bilateral Active 063161266 CHASTITY JEAN [facility] Snoring Active 29198234 SONG BULLOCK [facility] Type 2 diabetes mellitus without complication Active 420388527 NEDA SHAW [facility] [place] [facility] Environmental Allergies (ICD-9-CM 477.9) Inactive 477.9 Dec 18, 2017 [facility] External hemorrhoids without mention of complication (ICD-9- CM 455.3) Inactive 455.3 Dec 18, 2017 [facility] Impotence of organic origin (ICD-9-CM 607.84) Inactive 607.84 Dec 18, 2017 PADMA LONG [facility] Screening for Lipoid disorders (ICD-9-CM V77.91) Inactive V77.91 Jan 18, 2007 [facility] Stye * (ICD-9-CM 373.11) Inactive 373.11 Dec 18, 8 Jan 18, 2007 Entered By: PADMA LONG Comment: bilat lower lids, chronic/recurrent [facility]ADMA LONG [facility] Tobacco Use Disorder, Continuous Inactive 305.1 Dec 18, 2017 Jan 18, 2007 Entered By: PADMA LONG Comment: one ppd PADMA LONG [facility] Radiology Reports: +/- 30 days of [...] ENTRY DATE: AUG 07, 2019@10:24:39 AUTHOR: ALF AMEZCUAIGNER: URGENCY: STATUS: COMPLETED WI-GASTROENTEROLOGY/FOLLOW-UP Has ADDENDA Patient contact using the telephone. S: Patient is a 64 yo M with ho DMII, CAD sp PCI, lung cancer sp lobectomy and adjuvant chemo 2015, dyslipidemia, obesity, [place] here for a follow up visit for a pancreatic cyst. COVID-19 Telehealth Service Visit was performed under the "Telehealth Services During Certain Emergency Periods Act of 2019." The patient was given verbal consent to participate in a telehealth connection rather than a [id number] visit in the clinic. The patient was at home and I was in a private office at the [facility] away from the patient with the door securely closed. The visit was conducted using the telephone. He had CT w/wo contrast ordered by Dr. Barreto 06/2019 that showed pancreatic cyst appeared stable [...] from most recent physical visits to the [place] (05/2019) Physical examination was unable to be [...] History of multiple polyps. Last colo noscopy 2017 (was ~1 yr fu from 2016 exam) [...] VA providers and non-VA providers. /frida AMEZCUA MEDICAID BUSINESS ANALYST Signed: 08/07/2019 10:51 Receipt Acknowledged By: 08/08/2019 09:19 /frida MARLEY RN 08/07/2019 ADDENDUM STATUS: COMPLETED MRI above due 12/2019 then clinic fu to review results /frida AMEZCUA MEDICAID BUSINESS ANALYST Signed: 08/07/2019 10:52 Receipt Acknowledged By: 08/08/2019 09:20 /frida MARLEY RN 08/08/2019 ADDENDUM STATUS: COMPLETED Would you please work with patient to determine type of pacemaker and if it is MRI compatible? I believe it should be, because he said he had an MRI at I think if his spine or thorax within the past 6 months. /frida AMEZCUA MEDICAID BUSINESS ANALYST Signed: 08/08/2019 10:34 Receipt Acknowledged By: 08/08/2019 15:45 /frida PRESSLEY APRN 08/08/2019 ADDENDUM STATUS: COMPLETED Pt called to clarify type of pacemaker he has. He informed me he does NOT have a pacemaker, but has an implanted loop recorder. He reports having several MRIs with this with no problems. MRI check list reviewed and order placed. /gisell/ DAYAN ISRAEL APRN Signed: 08/08/2019 15:34 08/21/2019 ADDENDUM STATUS: COMPLETED called to have his MRI/MRCP ordered in the community as he [place] over [place] hours away. Unable to schedule a [facility] consult at this time due to time frame for ordering per [facility] GI RN must be 2 months or less prior to entry. Veterans MRI/MRCP has been added to the [facility] future care MARIA ESTHER sheet and will order this on October 22, 2019. Attempted to contact this about this but I could not leave a message on the unidentifiable voicemail. /gisell/ JA QUINN RN Signed: 08/21/2019 15:19 ALF AMEZCUA LudaJuan M BLAS [facility] Aug 07, 2019 10:17 AM NURSING OUTPATIENT NOTE: LOCAL TITLE: WI-SPECIALTY PRE-APPT STANDARD TITLE: NURSING OUTPATIENT NOTE DATE OF NOTE: AUG 07, 2019@10:17 ENTRY DATE: AUG 07, 2019@10:17:55 AUTHOR: JUAN LANG COSIGNER: URGENCY: STATUS: COMPLETED WI-SPECIALTY PRE-APPT Has [...] or on hold? Yes Pt. states Outside Study Abroad Advisor stopped the Aspirin/Dipyridamole and started him on [...] guard, watchful, or easily startled? NO 4. Avery numb or detached from people, activities, or your surroundings? NO 5. Avery guilty or unable to stop blaming yourself [...] changes noted. Pt. states his outside [facility] Study Abroad Advisor changed his medication. He no longer takes Aspirin/Dipyridamole but instead takes Prasugrel. Aspirin/Dipyridamole still on med list. Prasugrel is noted in Non-VA meds. Pt. also states he no longer takes cetirizine/pseudo. It has changed to Claritin-D within the last month, med list updated. He also stopped taking Nortriptyline awhile ago due to possible side effects, med list updated. Alerting PCP team. /gisell/ JUAN LANG RN Signed: 08/07/2019 12:36 Receipt Acknowledged By: * AWAITING SIGNATURE * ADRIEL HERNANDEZ,JUAN BLAS [facility]
--- OUTSIDE RECORDS SUMMARY | 2019-12-02 07:32 | XMS REPORT | Encounter Summary ---
Author Author Department of [facility] Aff rsHERBERTH Organization [facility] Address [address] [place] [address] Phone Unavailable Care Team Providers Care Night Guard Name Role Phone ADRIEL HERNANDEZ PCP Unavailable Insurance Providers: All historical and current No Data Provided for This Section Selected Encounter This section includes the information on record at [place] for the Encounter. Date/Time Encounter Type Encounter Description Reason Provider Source Oct 08, 2019 10:07 AM Outpatient Encounter ADMIN PAT ACTIVTIES ([place] NCT) [facility] IHE Encounter Template Text not used by [place] Assessments - Encounter Diagnoses No Data Provided [...] 11:00 AM AMBULATORY - NONE ARTUR BLAS [facility] Dec 31, 2019 01:15 PM AMBULATORY - MEDICINE ARTUR BLAS [facility] Dec 31, 2019 01:16 PM AMBULATORY - MEDICINE ARTUR BLAS [facility] Jan 01, 2020 09:00 AM AMBULATORY - MEDICINE ARTUR BLAS [facility] Jan 07, 2020 12:00 PM AMBULATORY - MEDICINE [facility] Jan 27, 2020 01:00 PM AMBULATORY - MEDICINE MARLENE KEYS V [facility] Mar 31, 2020 09:30 AM AMBULATORY - MEDICINE [facility] Mar 31, 2020 09:31 AM AMBULATORY - MEDICINE ARTUR BLAS V [facility] Mar 31, 2020 10:00 AM AMBULATORY - MEDICINE [facility] Mar 31, 2020 10:01 AM AMBULATORY - MEDICINE ARTUR BLAS V [facility] Apr 07, 2020 08:00 AM AMBULATORY - [...] the Encounter. The data comes from all [place] treatment facilities. Test Date/Time Test Type Test Details Facility Name Nov 17, 2019 07:23 AM Consult Order [facility] [id number] Cons Cleaning Attendant's Choice ARTUR BLAS [facility] Surgical Procedures: All [...] 2019 10:56 AM [facility] URINALYSIS Specimen Type: URINE No comment entered. URINE COLOR Yellow SPECIFIC GRAVITY 1.009 1.005-1.030 UROBILINOGEN Negative mg/dL 0.1-1.0 URINE BILIRUBIN Negative Negative URINE KETONES Negative mg/dl Negative URINE GLUCOSE Negative mg/dL Negative URINE PROTEIN Negative mg/dl Negative-Tr azinab URINE PH 6.0 5-8 APPEARANCE,URINE Clear Clear URINE BLOOD Negative Negative URINE NITRITE Negative Negative LEUKOCYTE ESTERASE Negative Negative Sep 23, 2019 10:56 AM [facility] MICROALBUMIN (ANANT,WI) RANDO M URINE Specimen Type: URINE Comment: Microalbumin is below the linearity of the instrument, unable to calculate the albumin/creatinine ratio. *MICROALBUMIN,RAND < 5 ug/mL *MICROALB/CREAT canc mcg/mg cr *UR PROTEIN < 6.8 mg/dL *UR CREATININE 37.4 mg/dL Not Available Sep 23, 2019 10:56 AM [facility] COMPREHENSIVE METABOLIC PA KELLE Specimen Type: PLASMA [...] to adverse reactions to drug (diso rder) [facility] 15 PLAVIX September 08, 2014 Propensity to adverse reactions to drug (diso rder) [facility] 15 Medications: VA dispensed (-15 months) and Non-VA Documented (Obtained Outside V A) Section Date Range: 1) prescriptions processed by a [facility] pharmacy in the last 15 m [facility], and 2) all medications recorded in [...] TEST BLOOD GLUCOSE 50 Dec 19, 2019 [id number] September 04, 2019 PAMELA RAMSEY ACCU-CHEK CHARLES PLUS (GLUCOSE) TEST STRIP Discontinued USE 1 STRIP FOR TESTING TWO TIMES PER WEEK - DIRECTED TO TEST BLOOD GLUCOSE 50 Jul 25, 2019 [id number] Nov 12, 2018 PAMELA RAMSEY ALBUTEROL SO4 90MCG/ACTUAT (CFC-F) INHL,ORAL,6.7GM Active INHALE 2 PUFFS BY ORAL INHALATION EVERY 4 HOURS NEEDED FOR BREATHING. SHAKE WELL. RINSE MOUTHPIECE FREQUENTLY TO PREVENT CLOGGING. USE NEEDED FOR SHORTNESS OF AIR/WHEEZING FOR BREATHING. SHAKE WELL. RINSE MOUTHPIECE FREQUENTLY TO PREVENT CLOGGING. USE NEEDED FOR SHORTNESS OF AIR/WHEEZING 1 Dec 19, 2019 [id number] September 04, 2019 [facility] ALCOHOL PREP PAD Active USE 1 PAD ON SKIN BIW TO CLEAN AND DISINFECT THE SKIN Sep 29, 2020 [id number] Sep 30, 2019 [facility]ICIO RANKIN [facility] ALCOHOL PREP PAD Discontinued USE 1 PAD ON SKIN BI W TO CLEAN AND DISINFECT THE SKIN 200 Dec 19, 2019 [id number] Jun 06, 2019 [facility] RAMSE[facility] ALCOHOL PREP PAD Discontinued USE 1 PAD ON SKIN BI W TO CLEAN AND DISINFECT THE SKIN 200 Jul 25, 2019 [id number] Nov 12, 2018 [facility]ELA RAMSEY [facility] ASCORBIC ACID 250MG TAB Non-VA TAKE ONE TABLET BY MOUTH ONCE A DAY Non-VA Documented by: SHANIQUA SCHMIDT nted at: [facility] ASPIRIN 25MG/DIPYRIDAMOLE 200MG CAP,SA Active T CHAPIN 1 CAPSULE BY MOUTH TWO TIMES A DAY - SWALLOW WHOLE. DO NOT CRUSH OR CHEW. FOR RECURRENT TIA/STROKE 180 Dec 19, 2019 [id number] Dec 20, 2018 [facility] ASPIRIN 25MG/DIPYRIDAMOLE 200MG CAP,SA Discontinued T CHAPIN 1 CAPSULE BY MOUTH TWO TIMES A DAY - SWALLOW WHOLE. DO NOT CRUSH OR CHEW. FOR RECURRENT TIA/STROKE 180 Feb 06, 2019 [id number] Sep 28, 2018 ZACHARY GRECO [facility] ASPIRIN 81MG TAB,EC Non- VA TAKE ONE TABLET BY MOUTH ONCE A DAY Non-VA Documented by: PADMA LONG nted at: [facility] ATORVASTATIN CA 80MG TAB Active TAKE ONE TABLET BY MOUTH AT BEDTIME FOR CHOLESTEROL - REPORT ANY UNEXPLAINED MUSCLE PAIN/WEAKNESS TO YOUR PROVIDER 90 Dec 19, 2019 [id number] September 04, 2019 PAMELA RAMSEY ATORVASTATIN CA 80MG TAB Discontinued TAKE ONE TABLET BY MOUTH AT BEDTIME FOR CHOLESTEROL - REPORT ANY UNEXPLAINED MUSCLE PAIN/WEAKNESS TO YOUR PROVIDER 90 Dec 20, 2018 [id number] Nov 12, 2018 PAMELA RAMSEY BUDESONIDE 160MCG/FORMOTEROL FUM 4.5MCG/SPRAY INHL,ORAL,10.2 GM Active INHALE 2 PUFFS BY MOUTH TWO TIMES A DAY FOR BREATHING. SHAKE WELL. RINSE MOUTH AND SPIT AFTER EACH USE. 3 Apr 24, 2020 [id number] August 22, 2019 LISSA OATES [facility] CALCIUM/VITAMIN D TAB No n-VA TAKE BY MOUTH ONCE A DAY Non-V A Documented by: PADMA LONG nted at: [facility] CARBOXYMETHYLCELLULOSE NA 0.5% SOLN,OPH Active INSTILL ONE DROP IN BOTH EYES FOUR TIMES A DAY FOR DRY EYES 15 Feb 01, 2020 [id number] September 03 0 [facility] [...] FOR ALL JOINTS. 100 Oct 31, 2018 [id number] Oct 06, 2018 ANAYELI KIRKPATRICK Luda Juan M BLAS [facility] DICLOFENAC NA 1% GEL,TOP APPLY 2 GRAMS A FFECTED AREA TWO TIMES A DAY NEEDED FOR PAIN AND INFLAMMATION. DO NOT EXCEED 16GM DAILY TO ANY AFFECTED JOINT OF LOWER EXTREMITIES. DO NOT EXCEED 8GM DAILY TO ANY AFFECTED JOINT OF UPPER EXTREMITES. DO NOT EXCEED TOTAL DOSE OF 32GM DAILY FOR ALL JOINTS. 100 Jan 17, 2019 [id number] Dec 20, 2018 PAMELA RAMSEY FLUTICASONE PROPIONATE 50MCG/SPRAY SOLN,NASAL,16GM Active INSTILL 1 SPRAY IN EACH NOSTRIL ONCE A DAY SHAKE GENTLY BEFORE USE! - MUST BE USED DIRECTED FOR 3 WEEKS TO PROVIDE BENEFIT. * NO EARLY REFILLS * 1UNIT = 30DAYS AT 4 PF/DAY OR 60DAYS AT 2PF/DAY 2 Dec 19, 2019 [id number] August 26, 2019 PAMELA RAMSEY KETOTIFEN 0.025% SOLN,OPH Active INSTILL 1 DROP IN BOTH EYES TWO TIMES A DAY FOR RELIEF OF ALLERGY SYMPTOMS IN EYE(S) Feb 01, 2020 [id number] September 04, 2019 [facility] LANCET,SOFTCLIX Active USE LANCET BIW FOR TESTING BL OOD GLUCOSE DIRECTED Sep 29, 2020 [id number] Sep 30, 2019 MAURICIO RANKIN LANCET,SOFTCLIX Discontinued USE LANCET BIW FO R TESTING BLOOD GLUCOSE DIRECTED Dec 19, 2019 [id number] Jun 06, 2019 PAMELA RAMSEY LANCET,SOFTCLIX Discontinued USE LANCET BIW FO R TESTING BLOOD GLUCOSE DIRECTED Jul 25, 2019 [id number] Nov 12, 2018 PAMELA RAMSEY LISINOPRIL 40MG TAB Non- VA TAKE ONE-HALF TABLET BY MOUTH EVERY MORNING Non-VA Documented by: PAMELA RAMSEY nted at: [facility] LORATADINE/PSEUDOEPHEDRINE TAB,SA Non-VA TAKE BY MOUTH No n-VA Documented by: JUAN LANG nted at: [facility] MAGNESIUM OXIDE 400MG TAB Non-VA TAKE ONE [...] ACID (REPLACES ACIPHEX) 180 Dec 19, 2019 [id number] August 26, 2019 PAMELA RAMSEY POLYETHYLENE GLYCOL [...] Non-VA Documented by: KATHERINE MATT nted at: [facility] PREGABALIN 150MG CAP,ORAL Non-VA TAKE 1 CAPSULE BY MOUTH TWO TIMES A DAY Non-VA Docume nted by: PAMELA RAMSEY nted at: [facility] SEMAGLUTIDE INJ,SOLN Non -VA INJECT SUBCUTANEOUSLY EVERY WEEK Non-VA Documented by: ANAYELI KIRKPATRICK nted at: [facility] TERBINAFINE HCL 1% CREAM,TOP Active APPLY LIGHT LY TO AFFECTED AREA TWO TIMES A DAY FOR INFECTION 90 Sep 23, 2020 [id number] Sep 24, 2019 ADRIEL HERNANDEZ UREA 20% CREAM,TOP Active APPLY LIGHTLY (20%) TO AFFECTED AREA TWO TIMES A DAY NEEDED TO PROMOTE HEALING,RUB IN UNTIL COMPLETELY ABSORBED*FOR TOPICAL USE ONLY* APPLY TO BOTH FEET DIRECTED. 90 Sep 25, 2020 [id number] Sep 26, 2019 [facility]EL HERNANDEZ [facility] Problems [...] Alcohol intake above recommended sensible limits Active 347121866 PADMA LONG [facility] Allergic conjunctivitis Active 521750767 F[facility]CROFTNEDA [facility] Bilateral senile combined form cataracts of eyes Active 14692870163 9108 FOLCROFTNEDA [facility] Bilateral tinnitus Active 3089926555538 CHASTITY JEAN [facility] Coronary arteriosclerosis Active 21293259 September 08, 2014 Entered By: PADMA LONG Comment: hx of ptca to RCA several yrs. agoSeptember 08, 2014 Entered By: PADMA LONG Comment: heart cath 09/01/14, neg. / previous stent to RCA,, via abida menesesma KALA JONES [facility] Diabetes mellitus Active 56974074 PAMELA RAMSEY [facility] Disorder of pancreas Active 9679393 September 08, 2014 Entered By: PADMA LONG Comment: 2.5cm low density lseion in bodyMay 2014 Entered By: PADMA LONG Comment: question of communication with pancreatic ductMay 2014 Entered By: PADMA LONG Comment: favored to be cystic pancreatic cancerMa2014 Entered By: PADMA LONG Comment: per abdominal CT 09/01/14, via abida meneses,ma PADMA LONG [facility] Dry eyes Active 214136679 [facility] Gastro-esophageal reflux disease without esophagitis ( SNOMED CT 416698416) Active 860655672 ALF GUEVARA [facility] History of malignant neoplasm of lung Active 379163867 CHAPO BARRETO [facility] Hyperlipidemia (SNOMED CT 94750973) Active 15841305 PAMELA RAMSEY [facility] Lung mass Active 797881569 September 08, 2014 E ntered By: PADMA LONG Comment: 4.5 cm mass, post. segment right upper lobe.September 08, 2014 Entered By: PADMA LONG Comment: mild adenopathy in mediastinum and bilat. [email or web address] Entered By: PADMA LONG Comment: most likely related to lung cancerMa2014 Entered By: PADMA LONG Comment: per ct angio of chest with contrast 09/01/14,via [facility] 2014 Entered By: PADMA LONG Comment: per path report- mod. differentiated bronchogenic adenoca. 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 Obstructive sleep apnea syndrome (SNOMED CT 94917720) Active 130988 015 PHILIPPE DOUGLASS [facility] Pancreatic cyst Active 89896778 JAYLENE GUEVARA [facility] Papilloma of right eyelid Active [id number] NEDA SHAW [facility] Polyp of colon Active 95571749 Jan 23 16 Entered By: PADMA LONG Comment: c-scope 01/17/16, multiple benign colonic polypsJun 28, 2017 Entered By: PADMA LONG Comment: c-scope,06/25/17,[facility], three benign polyps- sigmoid colon, transverse colon,cecum. see path report cprs SHARRON TORRES [facility] Pulmonary emphysema Active 70021939 0 BRIANA LESLYE [facility] Sensorineural hearing loss, bilateral Active 162211082 CHASTITY JEAN ARTUR [facility] Snoring Active 04876835 SONG BULLOCK [facility] Type 2 diabetes mellitus without complication Active 223960182 COLINNEDA ARTUR [facility] Environmental Allergies (ICD-9-CM 477.9) Inactive 477.9 Dec 18, 2017 [facility] External hemorrhoids without mention of complication (ICD-9- CM 455.3) Inactive 455.3 Dec 18, 2017 [facility] Impotence of organic origin (ICD-9-CM 607.84) Inactive 607.84 Dec 18, 2017 [facility] Screening for Lipoid disorders (ICD-9-CM V77.91) Inactive V77.91 Jan 18, 2007 [facility] Stye * (ICD-9-CM 373.11) Inactive 373.11 Dec 18, 201 8 Jan 18, 2007 Entered By: PADMA LONG Comment: bilat lower lids, chronic/recurrent PADMA LONG Juan M [facility] Tobacco Use Disorder, Continuous Inactive 305.1 Dec 18, 2017 Jan 18, 2007 Entered By: PADMA LONG Comment: one ppd PADMA LONG [facility] Radiology Reports: +/- [...] ENTRY DATE: OCT 08, 2019@10:08:07 AUTHOR: BESSIE BOWERSIGNER: URGENCY: STATUS: COMPLETED MSA Administrative Note: Scheduling: ANSWERING MACHINE MESSAGE On Sep@10:08 an attempt was made contact [facility] to schedule appointment in :[facility] lab. A message including the purpose of the call and a call back number was left on an answering machine. /gisell/ BESSIE [place] Signed: 10/08/2019 10:08 BESSIE BOWERS [facility]
--- OUTSIDE RECORDS SUMMARY | 2019-12-02 07:32 | XMS REPORT | Encounter Summary ---
Author Author Department of [facility] Aff [facility]BERTH Organization [facility] Address [address] [place] [address] Phone Unavailable Care Team Providers Care Crew Boat Operator Name Role Phone ADRIEL HERNANDEZ PCP Unavailable Insurance Providers: All historical and current No Data Provided for This Section Selected Encounter This section includes the information on record at [place] for the Encounter. Date/Time Encounter Type Encounter Description Reason Provider Source Aug 07, 2019 10:30 AM Outpatient Encounter TELEPHONE/MEDICINE [facility] IHE Encounter Template Text not used by [place] Assessments - Encounter Diagnoses No Data Provided [...] 07, 2019 09:15 AM AMBULATORY - NONE [facility] BRYAN RO[facility] 15 Dec 31, 2019 11:00 AM [facility] - [facility] Dec [facility], 2019 01:15 PM [facility] - [facility]IC[facility] Dec 31, 2019 01:16 PM AMBULATORY - MEDICINE [facility] Jan 01, 2020 09:00 AM AMBULATORY - MEDICINE [facility] Jan 07, 2020 12:00 PM AMBULATORY - MEDICINE [facility] Jan 27, 2020 01:00 PM AMBULATORY - MEDICINE [facility] Surgical Procedures: All associated to [...] Comment Facility Jun 26, 2018 02:13 PM [place]-TOBACCO QUIT 15 YRS OR MORE [facility] Tobacco Use History This section includes a history of the smoking, or tobacco -related health factors, that were collected on or before the date of the Encoun ter. The data comes from the [place] facility where the Encounter took place. Date/Time Smoking Status/Tobacco Use Comment [facility] Jun 26, 2018 02:13 PM [place]-TOBACCO QUIT 15 YRS OR MORE [facility] Jun 27, 2017 01:39 PM [...] to adverse reactions to drug (diso rder) [facility], [facility] 15 PLAVIX September 08, 2014 Propensity to adverse reactions to drug (diso rder) [facility], [facility] 15 Medications: VA dispensed (-15 months) and Non-VA Documented (Obtained Outside A) Section Date Range: 1) prescriptions processed by a [facility] pharmacy in the last 15 m [facility], and 2) all medications recorded in the [place] medical record as "non-VA medic ations". Pharmacy terms refer to [place] pharmacy's work on prescriptions. [facility] patient s [...] TEST BLOOD GLUCOSE 50 Dec 19, 2019 [id number] September 04, 2019 PAMELA RAMSEY ACCU-CHEK CHARLES PLUS (GLUCOSE) TEST STRIP Discontinued USE 1 STRIP FOR TESTING TWO TIMES PER WEEK - DIRECTED TO TEST BLOOD GLUCOSE 50 Jul 25, 2019 [id number] Nov 12, 2018 PAMELA RAMSEY ALBUTEROL SO4 90MCG/ACTUAT (CFC-F) INHL,ORAL,6.7GM Active INHALE 2 PUFFS BY ORAL INHALATION EVERY 4 HOURS NEEDED FOR BREATHING. SHAKE WELL. RINSE MOUTHPIECE FREQUENTLY TO PREVENT CLOGGING. USE NEEDED FOR SHORTNESS OF AIR/WHEEZING FOR BREATHING. SHAKE WELL. RINSE MOUTHPIECE FREQUENTLY TO PREVENT CLOGGING. USE NEEDED FOR SHORTNESS OF AIR/WHEEZING 1 Dec 19, 2019 [id number] September 04, 2019 PAMELA RAMSEY CBGUILLERMO ALCOHOL PREP PAD Active USE 1 PAD ON SKIN BIW TO CLEAN AND DISINFECT THE SKIN 200 Sep 29, 2020 [id number] Sep 30, 2019 PAMELLA RANKINLloyd [facility] ALCOHOL PREP PAD Discontinued USE 1 PAD ON SKIN BI W TO CLEAN AND DISINFECT THE SKIN 200 Dec 19, 2019 [id number] Jun 06, 2019 PAMELA RAMSEY CBGUILLERMO ALCOHOL PREP PAD Discontinued USE 1 PAD ON SKIN BI W TO CLEAN AND DISINFECT THE SKIN 200 Jul 25, 2019 [id number] Nov 12, 2018 PAMELA RAMSEY ASCORBIC ACID 250MG TAB Non-VA TAKE ONE TABLET BY MOUTH ONCE A DAY Non-VA Documented by: SHANIQUA SCHMIDT nted at: [facility] ASPIRIN 25MG/DIPYRIDAMOLE 200MG CAP,SA Active T CHAPIN 1 CAPSULE BY MOUTH TWO TIMES A DAY - SWALLOW WHOLE. DO NOT CRUSH OR CHEW. FOR RECURRENT TIA/STROKE 180 Dec 19, 2019 [id number] Dec 20, 2018 PAMELA RAMSEY [facility] ASPIRIN 25MG/DIPYRIDAMOLE 200MG CAP,SA Discontinued T CHAPIN 1 CAPSULE BY MOUTH TWO TIMES A DAY - SWALLOW WHOLE. DO NOT CRUSH OR CHEW. FOR RECURRENT TIA/STROKE 180 Feb 06, 2019 [id number] Sep 28, 2018 ZACHARY GRECO [facility] ASPIRIN 81MG TAB,EC Non- [place] TAKE ONE TABLET BY MOUTH ONCE A DAY Non-VA Documented by: PADMA LONG nted at: [facility] ATORVASTATIN CA 80MG TAB Active TAKE ONE TABLET BY MOUTH AT BEDTIME FOR CHOLESTEROL - REPORT ANY UNEXPLAINED MUSCLE PAIN/WEAKNESS TO YOUR PROVIDER 90 Dec 19, 2019 [id number] September 04, 2019 PAMELA RAMSEY ATORVASTATIN CA 80MG TAB Discontinued TAKE ONE TABLET BY MOUTH AT BEDTIME FOR CHOLESTEROL - REPORT ANY UNEXPLAINED MUSCLE PAIN/WEAKNESS TO YOUR PROVIDER 90 Dec 20, 2018 [id number] Nov 12, 2018 PAMELA RAMSEY BUDESONIDE 160MCG/FORMOTEROL FUM 4.5MCG/SPRAY INHL,ORAL,10.2 GM Active INHALE 2 PUFFS BY MOUTH TWO TIMES A DAY FOR BREATHING. SHAKE WELL. RINSE MOUTH AND SPIT AFTER EACH USE. 3 Apr 24, 2020 [id number] August 22, 2019 [facility] CALCIUM/VITAMIN D TAB No n-VA TAKE BY MOUTH ONCE A DAY Non-V A Documented by: PADMA LONG nted at: [facility] CARBOXYMETHYLCELLULOSE NA 0.5% SOLN,OPH Active INSTILL ONE DROP IN BOTH EYES FOUR TIMES A DAY FOR DRY EYES 15 Feb 01, 2020 [id number] September 03 0 [facility] SH[facility] DICLOFENAC NA 1% GEL,TOP Discontinued APPLY 2 GRAMS A FFECTED AREA TWO TIMES A DAY NEEDED FOR PAIN AND INFLAMMATION. DO NOT EXCEED 16GM DAILY TO ANY AFFECTED JOINT OF LOWER EXTREMITIES. DO NOT EXCEED 8GM DAILY TO ANY AFFECTED JOINT OF UPPER EXTREMITES. DO NOT EXCEED TOTAL DOSE OF 32GM DAILY FOR ALL JOINTS. 100 Oct 31, 2018 [id number] Oct 06, 2018 [facility] DICLOFENAC NA 1% GEL,TOP APPLY 2 GRAMS A FFECTED AREA TWO TIMES A DAY NEEDED FOR PAIN AND INFLAMMATION. DO NOT EXCEED 16GM DAILY TO ANY AFFECTED JOINT OF LOWER EXTREMITIES. DO NOT EXCEED 8GM DAILY TO ANY AFFECTED JOINT OF UPPER EXTREMITES. DO NOT EXCEED TOTAL DOSE OF 32GM DAILY FOR ALL JOINTS. 100 Jan 17, 2019 [id number] Dec 20, 2018 PAMELA RAMSEY FLUTICASONE PROPIONATE 50MCG/SPRAY SOLN,NASAL,16GM Active INSTILL 1 SPRAY IN EACH NOSTRIL ONCE A DAY SHAKE GENTLY BEFORE USE! - MUST BE USED DIRECTED FOR 3 WEEKS TO PROVIDE BENEFIT. * NO EARLY REFILLS * 1UNIT = 30DAYS AT 4 PF/DAY OR 60DAYS AT 2PF/DAY 2 Dec 19, 2019 [id number] August 26, 2019 PAMELA RAMSEY KETOTIFEN 0.025% SOLN,OPH Active INSTILL 1 DROP IN BOTH EYES TWO TIMES A DAY FOR RELIEF OF ALLERGY SYMPTOMS IN EYE(S) Feb 01, 2020 [id number] September 04, 2019 [facility] LANCET,SOFTCLIX Active USE LANCET BIW FOR TESTING BL OOD GLUCOSE DIRECTED Sep 29, 2020 [id number] Sep 30, 2019 [facility] LANCET,SOFTCLIX Discontinued USE LANCET BIW FO R TESTING BLOOD GLUCOSE DIRECTED Dec 19, 2019 [id number] Jun 06, 2019 [facility]ELA RAMSEY [facility] LANCET,SOFTCLIX Discontinued USE LANCET BIW FO R TESTING BLOOD GLUCOSE DIRECTED Jul 25, 2019 [id number] Nov 12, 2018 PAMELA RAMSEY LISINOPRIL 40MG TAB Non- [place] TAKE ONE-HALF TABLET BY MOUTH EVERY MORNING Non-VA Documented by: PAMELA RAMSEY nted at: [facility] LORATADINE/PSEUDOEPHEDRINE TAB,SA Non-VA TAKE BY MOUTH No n-VA Documented by: JUAN LANG nted at: [facility] MAGNESIUM OXIDE 400MG TAB Non-VA [...] ACID (REPLACES ACIPHEX) 180 Dec 19, 2019 [id number] August 26, 2019 PAMELA RAMSEY POLYETHYLENE GLYCOL [...] Documented by: KATHERINE MATT Docume nted at: [facility] PREGABALIN 150MG CAP,ORAL Non-VA TAKE 1 CAPSULE BY MOUTH TWO TIMES A DAY Non-VA Docume nted by: PAMELA RAMSEY Docume nted at: [facility] SEMAGLUTIDE INJ,SOLN Non -VA INJECT SUBCUTANEOUSLY EVERY WEEK Non-VA Documented by: ANAYELI KIRKPATRICK Docume nted at: [facility] TERBINAFINE HCL 1% CREAM,TOP Active APPLY LIGHT LY TO AFFECTED AREA TWO TIMES A DAY FOR INFECTION 90 Sep 23, 2020 [id number] Sep 24, 2019 ADRIEL HERNANDEZ UREA 20% CREAM,TOP Active APPLY LIGHTLY (20%) TO AFFECTED AREA TWO TIMES A DAY NEEDED TO PROMOTE HEALING,RUB IN UNTIL COMPLETELY ABSORBED*FOR TOPICAL USE ONLY* APPLY TO BOTH FEET DIRECTED. 90 Sep 25, 2020 [id number] Sep 26, 2019 ADRIEL HERNANDEZ Problems (Conditions): [...] Alcohol intake above recommended sensible limits Active 979066590 PADMA LONG [facility] Allergic conjunctivitis Active 832775805 [facility] Bilateral senile combined form cataracts of eyes Active 99446892920 9108 [facility] [facility] Bilateral tinnitus Active [id number] CHASTITY JEAN [facility]UR [facility] Coronary arteriosclerosis Active [id number] September 08, 2014 Entered By: PADMA LONG Comment: hx of ptca to RCA several yrs. agoSeptember 08, 2014 Entered By: PADMA LONG Comment: heart cath 09/01/14, neg. / previous stent to RCA,, via abida meneses ks HATCHER, JENNEY R [facility] Diabetes mellitus Active 18624740 PAMELA RAMSEY [facility] Disorder of pancreas Active 7510211 September 08, 2014 Entered By: PADMA LONG Comment: 2.5cm low density lseion in bodyMay 2014 Entered By: PADMA LONG Comment: question of communication with pancreatic ductMay 2014 Entered By: PADMA LONG Comment: favored to be cystic pancreatic cancerMay 2014 Entered By: PADMA LONG Comment: per abdominal CT 09/01/14, via abida meneses,PADMA Pradhan [facility] Dry eyes Active 947827441 [facility] Gastro-esophageal reflux disease without esophagitis ( SNOMED CT 154370495) Active 681785552 ALF GUEVARA [facility] History of malignant neoplasm of lung Active 331109377 CHAPO BARRETO [facility] Hyperlipidemia (SNOMED CT 97454224) Active 10564543 PAMELA RAMSEY [facility] Lung mass Active 786537313 September 08, 2014 E ntered By: PADMA [...] bronchogenic adenoca. 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 Active 98594469 KATHERINE MATT [facility] Obesity Active 087313661 [facility] Obstructive sleep apnea syndrome (SNOMED CT 40206085) Active 813592 015 [place] D[place]ASS [facility] Pancreatic cyst Active 90494707 JAYLENE GUEVARA [facility] Papilloma of right eyelid Active [id number] [facility] SHAW [facility] Polyp of colon Active 51761641 Jan 23 Entered By: PADMA LONG Comment: c-scope 01/17/16, multiple benign colonic polypsJun 28, 2017 Entered By: PADMA LONG Comment: c-scope,06/25/17,[facility], three benign polyps- sigmoid colon, transverse colon,cecum. see path report cprs SHARRON TORRES [facility] Pulmonary emphysema Active 01287215 0 BRIANA GAVIN [facility] Sensorineural hearing loss, bilateral Active 030369117 CHASTITY JEAN [facility] Snoring Active 54201589 SONG BULLOCK [facility] Type 2 diabetes mellitus without complication Active 115463842 [facility] [...] Inactive V77.91 Jan 18, 2007 PADMA [facility] Stye * (ICD-9-CM 373.11) Inactive 373.11 Dec 18, 201 8 Jan 18, 2007 Entered By: PADMA LONG Comment: bilat lower lids, chronic/recurrent PADMA [facility] Tobacco Use Disorder, Continuous Inactive 305.1 Dec 18, 2017 Jan 18, 2007 Entered By: PADMA LONG Comment: one ppd PADMA [facility] Radiology Reports: +/- 30 days of the encounter No Data Provided for This Section Pathology Reports: +/- 30 days of the encounter No Data Provided for This Section Encounter Notes: All associated encounter notes This section contains the clinical notes associated to the Encounter. Date/Time Encounter Note(s) Provider Source August 22, 2019 08:38 AM ADMINISTRATIVE NOTE: LOCAL TITLE: GA-ADMINISTRATIVE NOTE (BP,O) STANDARD TITLE: ADMINISTRATIVE NOTE DATE OF NOTE: AUGUST 22, 2019@08:38 ENTRY DATE: AUGUST 22, 2019@08:38:37 AUTHOR: WANDA NELSON EXP COSIGNER: URGENCY: STATUS: COMPLETED Patient called and requested his CT in December be done in the community. He does not want to drive 6 hours round trip. [facility] consult entered per patient request. /gisell/ WANDA LINDSEY RN Signed: 08/22/2019 08:39 [facility] NEL[facility]
--- OUTSIDE RECORDS SUMMARY | 2019-12-02 07:32 | XMS REPORT | Encounter Summary ---
Author [facility] Address [address] [place] [address] Phone Unavailable Care Team Providers Care Loan Manager Name Role Phone ADRIEL HERNANDEZ PCP [...] with Provider Comments: Tinea Unguium ADRIEL HERNANDEZ [facility] Encounter Template Text not used by [place] Assessments - Encounter Diagnoses This section includes the primary and secondary diag noses documented for the Encounter. Date/Time Primary/Secondary Diagnosis Diagnosis Name Provider Source Sep 23, 2019 12:07 PM PRIMARY Tinea unguium [facility] Sep 23, 2019 12:07 PM SECONDARY Unspecified mycosis [facility] Plan of Treatment: Future Appointments [...] 07, 2019 09:15 AM AMBULATORY - NONE [facility] BRYAN CARDOZA Dec 31, 2019 11:00 AM AMBULATORY - NONE ARTUR LaresJuan M SIMSMila [facility] Dec 31, 2019 01:15 PM AMBULATORY - MEDICINE ARTUR BLAS [facility] Dec 31, 2019 01:16 PM AMBULATORY - MEDICINE ARUTR BLAS [facility] Jan 01, 2020 09:00 AM AMBULATORY - MEDICINE ARTUR BLAS [facility] Jan 07, 2020 12:00 PM AMBULATORY - MEDICINE [facility] Jan 27, 2020 01:00 PM AMBULATORY - MEDICINE [facility] Surgical Procedures: All associated to [...] mg/dL 0-99.9 Sep 23, 2019 10:56 AM [facility] URINALYSIS Specimen Type: URINE No comment entered. URINE COLOR Yellow SPECIFIC GRAVITY 1.009 1.005-1.030 UROBILINOGEN Negative mg/dL 0.1-1.0 URINE BILIRUBIN Negative Negative URINE KETONES Negative mg/dl Negative URINE GLUCOSE Negative mg/dL Negative URINE PROTEIN Negative mg/dl Negative-Tr zainab URINE PH 6.0 5-8 APPEARANCE,URINE Clear Clear URINE BLOOD Negative Negative URINE NITRITE Negative Negative LEUKOCYTE ESTERASE Negative Negative Sep 23, 2019 10:56 AM [facility] MICROALBUMIN (ANANT,WI) RANDO M URINE Specimen Type: URINE Comment: Microalbumin is below the linearity of the instrument, unable to calculate the albumin/creatinine ratio. *MICROALBUMIN,RAND < 5 ug/mL *MICROALB/CREAT canc mcg/mg cr *UR PROTEIN < 6.8 mg/dL *UR CREATININE 37.4 mg/dL Not Available Sep 23, 2019 10:56 AM [facility] COMPREHENSIVE METABOLIC PA KELLE Specimen Type: [...] EGFR >60 Sep 23, 2019 10:56 AM [facility] CBC & DIFF Specimen Type: BLOOD [...] and tobacco- related health factors from the [place] facility where the Encounter took place. Current Smoking Status This section includes the most current smoking, or tobacco -related health factor, from the [place] facility where the Encounter took place. Date/Time Current Smoking Status [facility] Nov 23, 2017 09:51 AM TOBACCO USER OFFERED MEDS [facility] Tobacco Use History This section includes a history of the smoking, or tobacco -related health factors, that were collected on or before the date of the Encoun ter. The data comes from the [place] facility where the Encounter took place. Date/Time Smoking Status/Tobacco Use Comment Josseline morris Nov 23, 2017 09:51 AM CURRENT TOBACCO USER (READY TO QUIT) [facility] Nov 23, 2017 09:51 AM TOBACCO CESSATION REFERRAL DECLINED [facility] Nov 23, 2017 09:51 AM TOBACCO [...] 01, 2005 08:32 AM NON-TOBACCO USER [facility] Advance Directives: All historical and current [...] to adverse reactions to drug (diso rder) [facility] 15 PLAVIX September 08, 2014 Propensity to adverse reactions to drug (diso rder) [facility] 15 Medications: VA dispensed (-15 months) and Non-VA Documented (Obtained Outside A) Section Date Range: 1) prescriptions processed by a VA pharmacy in the last 15 m [facility], and 2) all medications recorded [...] medication received during a visit to a VA clinic or emergency department (currently not available).Discontinued [...] other providers that was filled outside the [place]. Or, it may be an over the [...] TEST BLOOD GLUCOSE 50 Dec 19, 2019 [id number] September 04, 2019 PAMELA RAMSEY ACCU-CHEK CHARLES PLUS (GLUCOSE) TEST STRIP Discontinued USE 1 STRIP FOR TESTING TWO TIMES PER WEEK - DIRECTED TO TEST BLOOD GLUCOSE 50 Jul 25, 2019 [id number] Nov 12, 2018 PAMELA RAMSEY CB[facility]ER[facility] ALBUTEROL SO4 90MCG/ACTUAT (CFC-F) INHL,ORAL,6.7GM Active INHALE 2 PUFFS BY ORAL INHALATION EVERY 4 HOURS NEEDED FOR BREATHING. SHAKE WELL. RINSE MOUTHPIECE FREQUENTLY TO PREVENT CLOGGING. USE NEEDED FOR SHORTNESS OF AIR/WHEEZING FOR BREATHING. SHAKE WELL. RINSE MOUTHPIECE FREQUENTLY TO PREVENT CLOGGING. USE NEEDED FOR SHORTNESS OF AIR/WHEEZING 1 Dec 19, 2019 [id number] September 04, 2019 PAMELA RAMSEY CBGUILLERMO ALCOHOL PREP PAD Active USE 1 PAD ON SKIN BIW TO CLEAN AND DISINFECT THE SKIN 200 Sep 29, 2020 [id number] Sep 30, 2019 [facility] ALCOHOL PREP PAD Discontinued USE 1 PAD ON SKIN BI W TO CLEAN AND DISINFECT THE SKIN 200 Dec 19, 2019 [id number] Jun 06, 2019 [facility] RAMSE[facility] ALCOHOL PREP PAD Discontinued USE 1 PAD ON SKIN BI W TO CLEAN AND DISINFECT THE SKIN 200 Jul 25, 2019 [id number] Nov 12, 2018 PAMELA RAMSEY ASCORBIC ACID 250MG TAB Non-VA TAKE ONE TABLET BY MOUTH ONCE A DAY Non-VA Documented by: SHANIQUA SCHMIDT nted at: [facility] ASPIRIN 25MG/DIPYRIDAMOLE 200MG CAP,SA Active T CHAPIN 1 CAPSULE BY MOUTH TWO TIMES A DAY - SWALLOW WHOLE. DO NOT CRUSH OR CHEW. FOR RECURRENT TIA/STROKE 180 Dec 19, 2019 [id number] Dec 20, 2018 [facility] ASPIRIN 25MG/DIPYRIDAMOLE 200MG CAP,SA Discontinued T CHAPIN 1 CAPSULE BY MOUTH TWO TIMES A DAY - SWALLOW WHOLE. DO NOT CRUSH OR CHEW. FOR RECURRENT TIA/STROKE 180 Feb 06, 2019 [id number] Sep 28, 2018 ZACHARY GRECO [facility] ASPIRIN 81MG TAB,EC Non- [place] TAKE ONE TABLET BY MOUTH ONCE A DAY Non-VA Documented by: PADMA LONG nted at: [facility] N[facility] ATORVASTATIN CA 80MG TAB Active TAKE ONE TABLET BY MOUTH AT BEDTIME FOR CHOLESTEROL - REPORT ANY UNEXPLAINED MUSCLE PAIN/WEAKNESS TO YOUR PROVIDER 90 Dec 19, 2019 [id number] September 04, 2019 PAMELA RAMSEY ATORVASTATIN CA 80MG TAB Discontinued TAKE ONE TABLET BY MOUTH AT BEDTIME FOR CHOLESTEROL - REPORT ANY UNEXPLAINED MUSCLE PAIN/WEAKNESS TO YOUR PROVIDER 90 Dec 20, 2018 [id number] Nov 12, 2018 PAMELA RAMSEY BUDESONIDE 160MCG/FORMOTEROL FUM 4.5MCG/SPRAY INHL,ORAL,10.2 GM Active INHALE 2 PUFFS BY MOUTH TWO TIMES A DAY FOR BREATHING. SHAKE WELL. RINSE MOUTH AND SPIT AFTER EACH USE. 3 Apr 24, 2020 [id number] August 22, 2019 LISSA OATES [facility] CALCIUM/VITAMIN D TAB No n-VA TAKE BY MOUTH ONCE A DAY Non-V A Documented by: PADMA LONG nted at: [facility] CARBOXYMETHYLCELLULOSE NA 0.5% SOLN,OPH Active INSTILL ONE DROP IN BOTH EYES FOUR TIMES A DAY FOR DRY EYES 15 Feb 01, 2020 [id number] September 03 0 [facility] SHAW [facility] DICLOFENAC NA 1% GEL,TOP Discontinued APPLY 2 GRAMS A FFECTED AREA TWO TIMES A DAY NEEDED FOR PAIN AND INFLAMMATION. DO NOT EXCEED 16GM DAILY TO ANY AFFECTED JOINT OF LOWER EXTREMITIES. DO NOT EXCEED 8GM DAILY TO ANY AFFECTED JOINT OF UPPER EXTREMITES. DO NOT EXCEED TOTAL DOSE OF 32GM DAILY FOR ALL JOINTS. 100 Oct 31, 2018 [id number] Oct 06, 2018 ANAYELI KIRKPATRICK ARTUR BLAS [facility] DICLOFENAC NA 1% GEL,TOP APPLY 2 GRAMS A FFECTED AREA TWO TIMES A DAY NEEDED FOR PAIN AND INFLAMMATION. DO NOT EXCEED 16GM DAILY TO ANY AFFECTED JOINT OF LOWER EXTREMITIES. DO NOT EXCEED 8GM DAILY TO ANY AFFECTED JOINT OF UPPER EXTREMITES. DO NOT EXCEED TOTAL DOSE OF 32GM DAILY FOR ALL JOINTS. 100 Jan 17, 2019 [id number] Dec 20, 2018 PAMELA RAMSEY FLUTICASONE PROPIONATE 50MCG/SPRAY SOLN,NASAL,16GM Active INSTILL 1 SPRAY IN EACH NOSTRIL ONCE A DAY SHAKE GENTLY BEFORE USE! - MUST BE USED DIRECTED FOR 3 WEEKS TO PROVIDE BENEFIT. * NO EARLY REFILLS * 1UNIT = 30DAYS AT 4 PF/DAY OR 60DAYS AT 2PF/DAY 2 Dec 19, 2019 [id number] August 26, 2019 PAMELA RAMSEY KETOTIFEN 0.025% SOLN,OPH Active INSTILL 1 DROP IN BOTH EYES TWO TIMES A DAY FOR RELIEF OF ALLERGY SYMPTOMS IN EYE(S) Feb 01, 2020 [id number] September 04, 2019 [facility] SHAW [facility] LANCET,SOFTCLIX Active USE LANCET BIW FOR TESTING BL OOD GLUCOSE DIRECTED Sep 29, 2020 [id number] Sep 30, 2019 MAURICIO RANKIN LANCET,SOFTCLIX Discontinued USE LANCET BIW FO R TESTING BLOOD GLUCOSE DIRECTED Dec 19, 2019 [id number] Jun 06, 2019 PAMELA RAMSEY LANCET,SOFTCLIX Discontinued USE LANCET BIW FO R TESTING BLOOD GLUCOSE DIRECTED Jul 25, 2019 [id number] Nov 12, 2018 PAMELA RAMSEY LISINOPRIL 40MG TAB Non- [place] TAKE ONE-HALF TABLET BY MOUTH EVERY MORNING Non-VA Documented by: PAMELA RAMSEY nted at: [facility] LORATADINE/PSEUDOEPHEDRINE TAB,SA Non-VA TAKE BY MOUTH No n-VA Documented by: JUAN LANG nted at: ARTUR [place] [facility] MAGNESIUM OXIDE 400MG TAB Non-VA TAKE ONE TABLET BY MOUTH ONCE A DAY Non-VA Documented by: SHANIQUA SCHMIDT nted at: [facility] METFORMIN HCL 500MG TAB Non-VA TAKE ONE TABLET BY MOUTH TWO TIMES A DAY WITH BREAKFAST AND EVENING MEAL Non-VA Documented by: SHANIQUA SCHMIDT nted at: [facility] N[facility] MULTIVITAMINS CAP/TAB No n-VA TAKE 1 CAP/TAB BY MOUTH ONCE A DAY Non-VA Documented by: SHANIQUA SCHMIDT nted at: [facility] N[facility] OMEPRAZOLE 20MG CAP,EC Active TAKE 2 CAPSULES B Y MOUTH BEFORE BREAKFAST 30 MINUTES BEFORE EATING TO LOWER STOMACH ACID (REPLACES ACIPHEX) 180 Dec 19, 2019 [id number] August 26, 2019 PAMELA RAMSEY POLYETHYLENE GLYCOL 3350 PWDR,ORAL Non-VA TAKE 1 CAPFUL (17GM) BY MOUTH ONCE A DAY Non-VA Documented by: SHANIQUA SCHMIDT nted at: [facility] N[facility] POTASSIUM GLUCONATE TAB Non-VA TAKE 90 MG BY MOUTH ONCE A DAY Non-VA Documented by: SHANIQUA SCHMIDT nted at: [facility] NESS PRASUGREL HCL 10MG TAB N on-VA TAKE ONE TABLET BY MOUTH ONCE A DAY Non-VA Documented by: KATHERINE MATT nted at: [facility] PREGABALIN 150MG CAP,ORAL Non-VA TAKE 1 CAPSULE BY MOUTH TWO TIMES A DAY Non-VA Docume nted by: PAMELA RAMSEY nted at: [facility] N[facility] SEMAGLUTIDE INJ,SOLN Non -VA INJECT SUBCUTANEOUSLY EVERY WEEK Non-VA Documented by: ANAYELI KIRKPATRICK nted at: [facility] [place] [facility] TERBINAFINE HCL 1% CREAM,TOP Active APPLY LIGHT LY TO AFFECTED AREA TWO TIMES A DAY FOR INFECTION 90 Sep 23, 2020 [id number] Sep 24, 2019 ADRIEL HERNANDEZ UREA 20% CREAM,TOP Active APPLY LIGHTLY (20%) TO AFFECTED AREA TWO TIMES A DAY NEEDED TO PROMOTE HEALING,RUB IN UNTIL COMPLETELY ABSORBED*FOR TOPICAL USE ONLY* APPLY TO BOTH FEET DIRECTED. 90 Sep 25, 2020 [id number] Sep 26, 2019 [facility] Problems [...] Alcohol intake above recommended sensible limits Active 106855333 PADMA LONG [facility] Allergic conjunctivitis Active 816464699 INTERVALENEDA [facility] Bilateral senile combined form cataracts of eyes Active 11590537887 9108 INTERVALENEDA [facility] Bilateral tinnitus Active [id number] CHASTITY JEAN [facility] Coronary arteriosclerosis Active [id number] September 08, 2014 Entered By: PADMA LONG Comment: hx of ptca to RCA several yrs. agoSeptember 08, 2014 Entered By: PADMA LONG Comment: heart cath 09/01/14, neg. / previous stent to RCA,, via abida menesestn KALA JONES [facility] Diabetes mellitus Active 06540338 PAMELA RAMSEY [facility] Disorder of pancreas Active 7988946 September 08, 2014 Entered By: PADMA LONG Comment: 2.5cm low density lseion in bodyMay 2014 Entered By: PADMA LONG Comment: question of communication with pancreatic ductMay 2014 Entered By: PADMA LONG Comment: favored to be cystic pancreatic cancerMa2014 Entered By: PADMA LONG Comment: per abdominal CT 09/01/14, via abida meneses ks FRAZIER, JAY J ROBERT [facility] Dry eyes Active 566935323 INTERVALENEDA [facility] Gastro-esophageal reflux disease without esophagitis ( SNOMED CT 405722341) Active 276103561 ALF GUEVARA [facility] History of malignant neoplasm of lung Active 165263595 CHAPO BARRETO [facility] Hyperlipidemia (SNOMED CT 87977009) Active 97803448 PAMELA RAMSEY [facility] Lung mass Active 046833893 September 08, 2014 E ntered By: PADMA [...] report- mod. differentiated bronchogenic adenoca. 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 Active 33840117 KATHERINE MATT [facility] Obesity Active 753666543 [facility] Obstructive sleep apnea syndrome (SNOMED CT 07948634) Active 913636 015 PHILIPPE DOUGLASS [facility] Pancreatic cyst Active 14486131 [facility] Papilloma of right eyelid Active [id number] NEDA SHAW [facility] Polyp of colon Active 96105070 Jan 23 16 Entered By: PADMA LONG Comment: c-scope 01/17/16, multiple benign colonic polypsJun 28, 2017 Entered By: PADMA LONG Comment: c-scope,06/25/17,il-formerly [facility], three benign polyps- sigmoid colon, transverse colon,cecum. see path report cprs SHARRON TORRES [facility] Pulmonary emphysema Active 67190067 0 BRIANA LESLYE [facility] Sensorineural hearing loss, bilateral Active 706830133 CHASTITY JEAN [facility] Snoring Active 14051952 [place] ARTUR [facility] Type 2 diabetes mellitus without complication Active 523358783 NEDA SHAW [facility] Environmental Allergies (ICD-9-CM 477.9) Inactive 477.9 Dec 18, 2017 [facility] External hemorrhoids without mention of complication (ICD-9- CM 455.3) Inactive 455.3 Dec 18, 2017 [facility] Impotence of organic origin (ICD-9-CM 607.84) Inactive 607.84 Dec 18, 2017 [facility] Screening for Lipoid disorders (ICD-9-CM V77.91) Inactive V77.91 Jan 18, 2007 [facility] Stye * (ICD-9-CM 373.11) Inactive 373.11 Dec 18, 201 8 Jan 18, 2007 Entered By: PADMA LONG Comment: bilat lower lids, chronic/recurrent PADMA LONG Juan M BLAS [facility] Tobacco Use Disorder, Continuous Inactive 305.1 Dec 18, 2017 Jan 18, 2007 Entered By: PADMA LONG Comment: one PADMA Yu [facility] Radiology Reports: +/- 30 days of the [...] ENTRY DATE: SEP 23, 2019@12:06:21 AUTHOR: ADRIEL HERNANDEZIGNER: URGENCY: STATUS: COMPLETED MEDICATION RECONCILIATION Allergies: PLAVIX, [...] Level of Understanding: Unable to assess Comments: michelet/ ADRIEL HERNANDEZ [facility]- Signed: 09/23/2019 12:06 ADRIEL HERNANDEZ [facility] Sep 23, 2019 12:01 PM PRIMARY CARE PHYSICIAN OUTPA TIENT NOTE: LOCAL TITLE: WI-GENERAL/PRIMARY CARE STANDARD TITLE: PRIMARY CARE PHYSICIAN OUTPATIENT NOTE DATE OF NOTE: SEP 23, 2019@12:01 ENTRY DATE: SEP 23, 2019@12:01:11 AUTHOR: ADRIEL HERNANDEZ EXP COSIGNER: URGENCY: STATUS: COMPLETED WI-PAIN: Pain Reassessment-Patient's updated pain score after intervention is: PAIN Score 0 Pain Documentation: Pain level 3 or less. s. pt. presents to [facility] with cc of toenail fungus, onset for [...] is working rtc as needed /gisell/ ADRIEL ANDERSEN-BC Signed: 09/23/2019 12:06 [facility] Sep 23, 2019 11:12 AM NURSING OUTPATIENT NOTE: LOCAL TITLE: WI-NURSE/[facility] STANDARD TITLE: NURSING OUTPATIENT NOTE DATE OF NOTE: SEP 23, 2019@11:12 ENTRY DATE: SEP 23, 2019@11:34:17 AUTHOR: RAFI THOMSON EXP COSIGNER: URGENCY: STATUS: COMPLETED Reason for [...] today? *Required No Are you registered for [email or web address] ([facility])? No - Are you interested in registering? No If 'yes' please hand [email or web address] brochure. [place]-FOOT EXAM (PAVE): Foot Assessment VISUAL [...] of MOVE! Program can be adapted for [place]'s physical abilities. 'MOVE!' Screening: Patient offered and [...] THOMSON LPN Signed: 09/23/2019 11:39 RAFI THOMSON [facility]
--- OUTSIDE RECORDS SUMMARY | 2019-12-02 07:33 | XMS REPORT | Encounter Summary ---
Author Author Department of [facility] HERBERTH kline Organization Department of [facility] Address [address] [place] [address] Phone Unavailable Care Team Providers Care Career Manager Name Role Phone MARY, ADRIEL PCP Unavailable Insurance Providers: All historical [...] right lower eyelid, including canthus KATHERINE MATT [facility] IHE Encounter Template Text not used by ME Assessments - Encounter Diagnoses This section includes the primary and secondary diag noses documented for the Encounter. 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 The data comes from all [facility]. Appointment Date/Time Appointment Type Appointment Facili ty Name Apr 28, 2019 11:00 AM AMBULATORY - NONE [facility] Jun 25, 2019 11:30 AM AMBULATORY - NONE [facility] Jun 25, 2019 01:15 PM AMBULATORY - MEDICINE [facility] Jul 23, 2019 11:00 AM AMBULATORY - NONE [facility] Jul 25, 2019 08:00 AM AMBULATORY - NONE [facility] Aug 07, 2019 10:30 AM AMBULATORY - MEDICINE [facility] Sep 23, 2019 11:15 AM AMBULATORY - NONE [facility] Sep 23, 2019 11:30 AM AMBULATORY - MEDICINE [facility] Oct 07, 2019 09:15 AM AMBULATORY - NONE [facility] T, VISN 15 Active, Pending, [...] the Encounter. The data comes from all [facility]. Test Date/Time Test Type Test Details Facility Name Apr 01, 2019 10:33 AM Consult Order [facility][id number] Cons Novelty Worker's Choice [facility] Surgical Procedures: All associated to [...] Range Comment Mar 21, 2019 08:55 AM [facility] HEMOGLOBIN A1C Specimen Type: BLOOD [...] to adverse reactions to drug (diso rder) [facility] 15 PLAVIX September 08, 2014 Propensity to adverse reactions to drug (diso rder) [facility] 15 Medications: [place] dispensed (-15 months) [...] TEST BLOOD GLUCOSE 50 Dec 19, 2019 [id number] September 04, 2019 PAMELA RAMSEY ACCU-CHEK CHARLES PLUS (GLUCOSE) TEST STRIP Discontinued USE 1 STRIP FOR TESTING TWO TIMES PER WEEK - DIRECTED TO TEST BLOOD GLUCOSE 50 Jul 25, 2019 [id number] Nov 12, 2018 PAMELA RAMSEY ALBUTEROL SO4 90MCG/ACTUAT (CFC-F) INHL,ORAL,6.7GM Active INHALE 2 PUFFS BY ORAL INHALATION EVERY 4 HOURS NEEDED FOR BREATHING. SHAKE WELL. RINSE MOUTHPIECE FREQUENTLY TO PREVENT CLOGGING. USE NEEDED FOR SHORTNESS OF AIR/WHEEZING FOR BREATHING. SHAKE WELL. RINSE MOUTHPIECE FREQUENTLY TO PREVENT CLOGGING. USE NEEDED FOR SHORTNESS OF AIR/WHEEZING 1 Dec 19, 2019 [id number] September 04, 2019 PAMELA RAMSEY ALCOHOL PREP PAD Active USE 1 PAD ON SKIN BIW TO CLEAN AND DISINFECT THE SKIN 200 Sep 29, 2020 [id number] Sep 30, 2019 [facility]ICIO RANKIN [facility] ALCOHOL PREP PAD Discontinued USE 1 PAD ON SKIN BI W TO CLEAN AND DISINFECT THE SKIN 200 Dec 19, 2019 [id number] Jun 06, 2019 PAMELA RAMSEY ALCOHOL PREP PAD Discontinued USE 1 PAD ON SKIN BI W TO CLEAN AND DISINFECT THE SKIN 200 Jul 25, 2019 [id number] Nov 12, 2018 PAMELA RAMSEY ASCORBIC ACID 250MG TAB Non-VA TAKE ONE TABLET BY MOUTH ONCE A DAY Non-VA Documented by: SHANIQUA SCHMIDT nted at: [facility] ASPIRIN 25MG/DIPYRIDAMOLE 200MG CAP,SA Active T CHAPIN 1 CAPSULE BY MOUTH TWO TIMES A DAY - SWALLOW WHOLE. DO NOT CRUSH OR CHEW. FOR RECURRENT TIA/STROKE 180 Dec 19, 2019 [id number] Dec 20, 2018 PAMELA RAMSEY ASPIRIN 25MG/DIPYRIDAMOLE 200MG CAP,SA Discontinued T CHAPIN 1 CAPSULE BY MOUTH TWO TIMES A DAY - SWALLOW WHOLE. DO NOT CRUSH OR CHEW. FOR RECURRENT TIA/STROKE 180 Feb 06, 2019 [id number] Sep 28, 2018 ZACHARY GRECO [facility] ASPIRIN 81MG TAB,EC Non- [facility] TAKE ONE TABLET BY MOUTH ONCE A DAY Non-VA Documented by: PADMA LONG nted at: [facility] ATORVASTATIN CA 80MG TAB Active TAKE ONE TABLET BY MOUTH AT BEDTIME FOR CHOLESTEROL - REPORT ANY UNEXPLAINED MUSCLE PAIN/WEAKNESS TO YOUR PROVIDER 90 Dec 19, 2019 [id number] September 04, 2019 PAMELA RAMSEY ATORVASTATIN CA 80MG TAB Discontinued TAKE ONE TABLET BY MOUTH AT BEDTIME FOR CHOLESTEROL - REPORT ANY UNEXPLAINED MUSCLE PAIN/WEAKNESS TO YOUR PROVIDER 90 Dec 20, 2018 [id number] Nov 12, 2018 PAMELA RAMSEY BUDESONIDE 160MCG/FORMOTEROL FUM 4.5MCG/SPRAY INHL,ORAL,10.2 GM Active INHALE 2 PUFFS BY MOUTH TWO TIMES A DAY FOR BREATHING. SHAKE WELL. RINSE MOUTH AND SPIT AFTER EACH USE. 3 Apr 24, 2020 [id number] August 22, 2019 LISSA OATES [facility] CALCIUM/VITAMIN D TAB No n-VA TAKE BY MOUTH ONCE A DAY Non-V A Documented by: PADMA LONG nted at: [facility] CARBOXYMETHYLCELLULOSE NA 0.5% SOLN,OPH Active INSTILL ONE DROP IN BOTH EYES FOUR TIMES A DAY FOR DRY EYES 15 Feb 01, 2020 [id number] September 03 0 [facility] [...] FOR ALL JOINTS. 100 Oct 31, 2018 [id number] Oct 06, 2018 ANAYELI KIRKPATRICK [facility] DICLOFENAC NA 1% GEL,TOP APPLY 2 GRAMS A FFECTED AREA TWO TIMES A DAY NEEDED FOR PAIN AND INFLAMMATION. DO NOT EXCEED 16GM DAILY TO ANY AFFECTED JOINT OF LOWER EXTREMITIES. DO NOT EXCEED 8GM DAILY TO ANY AFFECTED JOINT OF UPPER EXTREMITES. DO NOT EXCEED TOTAL DOSE OF 32GM DAILY FOR ALL JOINTS. 100 Jan 17, 2019 [id number] Dec 20, 2018 PAMELA RAMSEY FLUTICASONE PROPIONATE 50MCG/SPRAY SOLN,NASAL,16GM Active INSTILL 1 SPRAY IN EACH NOSTRIL ONCE A DAY SHAKE GENTLY BEFORE USE! - MUST BE USED DIRECTED FOR 3 WEEKS TO PROVIDE BENEFIT. * NO EARLY REFILLS * 1UNIT = 30DAYS AT 4 PF/DAY OR 60DAYS AT 2PF/DAY 2 Dec 19, 2019 [id number] August 26, 2019 PAMELA RAMSEY KETOTIFEN 0.025% SOLN,OPH Active INSTILL 1 DROP IN BOTH EYES TWO TIMES A DAY FOR RELIEF OF ALLERGY SYMPTOMS IN EYE(S) Feb 01, 2020 [id number] September 04, 2019 [facility] LANCET,SOFTCLIX Active USE LANCET BIW FOR TESTING BL OOD GLUCOSE DIRECTED Sep 29, 2020 [id number] Sep 30, 2019 MAURICIO RANKIN LANCET,SOFTCLIX Discontinued USE LANCET BIW FO R TESTING BLOOD GLUCOSE DIRECTED Dec 19, 2019 [id number] Jun 06, 2019 PAMELA RAMSEY LANCET,SOFTCLIX Discontinued USE LANCET BIW FO R TESTING BLOOD GLUCOSE DIRECTED Jul 25, 2019 [id number] Nov 12, 2018 PAMELA RAMSEY LISINOPRIL 40MG TAB Non- [facility] TAKE ONE-HALF TABLET BY MOUTH EVERY MORNING Non-VA Documented by: PAMELA RAMSEY nted at: [facility] LORATADINE/PSEUDOEPHEDRINE TAB,SA Non-VA TAKE BY MOUTH No n-VA Documented by: JUAN LANG nted at: [facility] MAGNESIUM OXIDE 400MG TAB Non-VA TAKE [...] ACID (REPLACES ACIPHEX) 180 Dec 19, 2019 [id number] August 26, 2019 PAMELA RAMSEY POLYETHYLENE GLYCOL [...] MOUTH ONCE A DAY Non-VA Documented by: KATHERIEN MATT Docume nted at: [facility] PREGABALIN 150MG CAP,ORAL Non-VA TAKE 1 CAPSULE BY MOUTH TWO TIMES A DAY Non-VA Docume nted by: PAMELA RAMSEY Docume nted at: [facility] SEMAGLUTIDE INJ,SOLN Non -VA INJECT SUBCUTANEOUSLY EVERY WEEK Non-VA Documented by: ANAYELI KIRKPATRICK Docume nted at: [facility] BLAS [facility] TERBINAFINE HCL 1% CREAM,TOP Active APPLY LIGHT LY TO AFFECTED AREA TWO TIMES A DAY FOR INFECTION 90 Sep 23, 2020 [id number] Sep 24, 2019 ADRIEL HERNANDEZ UREA 20% CREAM,TOP Active APPLY LIGHTLY (20%) TO AFFECTED AREA TWO TIMES A DAY NEEDED TO PROMOTE HEALING,RUB IN UNTIL COMPLETELY ABSORBED*FOR TOPICAL USE ONLY* APPLY TO BOTH FEET DIRECTED. 90 Sep 25, 2020 [id number] Sep 26, 2019 ADRIEL HERNANDEZ Problems (Conditions): [...] Alcohol intake above recommended sensible limits Active 309942332 PADMA LONG [facility] Allergic conjunctivitis Active 467068298 SEATTLENEDA [facility] Bilateral senile combined form cataracts of eyes Active 98328749882 9108 [facility] [facility] Bilateral tinnitus Active 0252835682182 CHASTITY JEAN [facility] Coronary arteriosclerosis Active 55604309 September 08, 2014 Entered By: PADMA LONG Comment: hx of ptca to RCA several yrs. agoSeptember 08, 2014 Entered By: PADMA LONG Comment: heart cath 09/01/14, neg. / previous stent to RCA,, via abida meneses [place]s HATCHER, JENNEY R [facility] Diabetes mellitus Active 17698483 PAMELA RAMSEY [facility] Disorder of pancreas Active 1402559 September 08, 2014 Entered By: PADMA LONG Comment: 2.5cm low density lseion in bodyMay 2014 Entered By: PADMA LONG Comment: question of communication with pancreatic ductMay 2014 Entered By: PADMA LONG Comment: favored to be cystic pancreatic cancerMay 2014 Entered By: PADMA LONG Comment: per abdominal CT 09/01/14, via abida meneses ks FRAZIER, JAY J [facility] Dry eyes Active 624869049 [place] Juan M [facility] Gastro-esophageal reflux disease without esophagitis ( SNOMED CT 715677079) Active 909224967 ALF GUEVARA [facility] History of malignant neoplasm of lung Active 724744620 CHAPO BARRETO [facility] Hyperlipidemia (SNOMED CT 99975705) Active 34629477 PAMELA RAMSEY [facility] Lung mass Active 420290814 September 08, 2014 E ntered By: PADMA LONG Comment: 4.5 cm mass, post. segment right upper lobe.September 08, 2014 Entered By: PADMA LONG Comment: mild adenopathy in mediastinum and bilat. hilaMay 2014 Entered By: PADMA LONG Comment: most likely related to lung cancerMay 2014 Entered By: PADMA LONG Comment: per ct angio of chest with contrast 09/01/14,via abida menesesvtJun 2014 Entered By: PADMA LONG Comment: per path report- mod. differentiated bronchogenic adenoca. 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 Active 69731815 KATHERINE MATT [facility] Obesity Active 727355455 [facility] Obstructive sleep apnea syndrome (SNOMED CT 87822144) Active 350413 015 [place] DOU[place]ASS [facility] Pancreatic cyst Active 92000861 JAYLENE GUEVARA [facility] Papilloma of right eyelid Active 479342884124681 [facility] Polyp of colon Active 55671937 Jan 23 Entered By: PADMA LONG Comment: c-scope 01/17/16, multiple benign colonic polypsJun 28, 2017 Entered By: PADMA LONG Comment: c-scope,06/25/17,[facility], three benign polyps- sigmoid colon, transverse colon,cecum. see path report cprs SHARRON TORRES [facility] Pulmonary emphysema Active 18042563 0 BRIANA GAVIN [facility] Sensorineural hearing loss, bilateral Active 512485191 CHASTITY JEAN [facility] Snoring Active 65369477 SNOG BULLOCK [facility] Type 2 diabetes mellitus without complication Active 287311494 [facility] Environmental Allergies (ICD-9-CM 477.9) Inactive 477.9 Dec 18, 2017 PADMA LONG [facility] External hemorrhoids without mention of complication (ICD-9- CM 455.3) Inactive 455.3 Dec 18, 2017 PADMA LONG [facility] Impotence of organic origin (ICD-9-CM 607.84) Inactive 607.84 Dec 18, 2017 PADMA LONG [facility] Screening for Lipoid disorders (ICD-9-CM V77.91) Inactive V77.91 Jan 18, 2007 PADMA LONG [facility] Stye * (ICD-9-CM 373.11) Inactive 373.11 Dec 18, 201 8 Jan 18, 2007 Entered By: PADMA LONG Comment: bilat lower lids, chronic/recurrent PADMA LONG [facility] Tobacco Use Disorder, Continuous Inactive 305.1 Dec 18, 2017 Jan 18, 2007 Entered By: PADMA LONG Comment: one ppd PADMA LONG [facility] Radiology Reports: +/- 30 days of [...] the Encounter. The data comes from all [place] treatment facilities. Date/Time Pathology Report Provider Source [...] 11:11) Microscopic examination is performed. DIAGNOSIS: Specimen: [id number] Spec Type: SURGICAL Abdulkadir: 04/03/19 Rec: 04/03/19-1241 PATHOLOGIC DIAGNOSIS Skin lesion, right upper cheek, biopsy: 1. Seborrheic keratosis, not involving resection margins. 2. Solar elastosis. Skin lesion, right lower mid margin, biopsy: 1. Seborrheic keratosis, with tumor at tissue edge/margin, but with benign features. LL COPIES TO: KATHERINE MATT [facility] PATHOLOGIST CODES: 96450/2 at 1233 The gross and microscopic examinations and interpretation were performed at [facility] Department of Pathology, [address] [place] [address]. Slides and paraffin blocks are on file at [facility]. =--=--=--=--=--=--=--=--=--=--=--=--=--=--=--=--=--=--=--=--=--=--=--=--=--=-- Performing Laboratory: Surgical Pathology Report Performed By: [facility] [CLIA# [id number]] [address] [place] [address] EDWARD LANGFORD [facility] 15 Encounter Notes: All associated encounter notes This section contains the clinical notes associated to the Encounter. Date/Time Encounter Note(s) Provider Source Apr 14, 2019 09:57 AM OPHTHALMOLOGY NOTE: LOCAL TITLE: [place]-EYE OPHTHALMOLOGY/FOLLOW-UP STANDARD TITLE: OPHTHALMOLOGY NOTE DATE OF [...] WELL. F/U PRN. /gisell/ KATHERINE MATT Staff Staking Engineer Signed: 04/14/2019 10:16 KATHERINE MATT [facility] Apr 14, 2019 09:42 AM NURSING OUTPATIENT NOTE: LOCAL TITLE: [place]-SPECIALTY PRE-APPT STANDARD TITLE: NURSING OUTPATIENT NOTE DATE [...] denies history of glaucoma. /gisell/ BRO HODGSON [employer] Signed: 04/14/2019 09:51 BRO HODGSON [facility]
--- OUTSIDE RECORDS SUMMARY | 2019-12-02 07:33 | XMS REPORT | Encounter Summary ---
Author Author [facility] Address [address] [place] [address] Phone Unavailable Care Team Providers Care Retoucher Photoengraving Name Role Phone MARYADRIEL PCP Unavailable Insurance Providers: All historical and current No Data Provided for This Section Selected Encounter This section includes the information on record at [place] for the Encounter. 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 This section includes future appointments and fu ture orders which are active, pending or scheduled. Future Appointments This section includes appointments that were scheduled t o occur 6 months from the date of the Encounter, up to a maximum of 20 appointme nts. The data comes from all [facility]. Appointment Date/Time Appointment Type Appointment Facili ty Name Apr 14, 2019 10:00 AM AMBULATORY - SURGERY [facility] Apr 28, 2019 11:00 AM AMBULATORY - NONE ARTUR BLAS [facility] Jun 25, 2019 11:30 AM AMBULATORY - NONE ARTUR BLAS [facility] Jun 25, 2019 01:15 PM AMBULATORY - MEDICINE ARTUR LudaJuan M BLAS [facility] Jul 23, 2019 11:00 AM AMBULATORY - NONE ARTUR BLAS [facility] Jul 25, 2019 08:00 AM AMBULATORY - NONE ARTUR BLAS [facility] Aug 07, 2019 10:30 AM AMBULATORY - MEDICINE ARTUR BLAS [facility] Sep 23, 2019 11:15 AM AMBULATORY - NONE [facility] Sep 23, 2019 11:30 AM AMBULATORY - MEDICINE [facility] Active, Pending, and Scheduled Orders This [...] the Encounter. The data comes from all [facility]. Test Date/Time Test Type Test Details Facility Name Apr 01, 2019 10:33 AM Consult Order [facility] PULMONARY-[id number] Cons [facility] Surgical Procedures: All associated to the encounter No Data Provided for This Section Lab Results: +/- 30 days of the encounter This section includes the Chemistry and Hematology Lab R esults on record with [place] for the patient. Radiology Reports and Pathology Report s are provided separately, in subsequent sections. Lab Results This section contains the Chemistry/Hematology Results usha t were resulted 30 days before or 30 days after the date of the Encounter. Date/Time Source Result Type Result - Unit Interpretation Reference Range Comment Mar 21, 2019 08:55 AM [facility] HEMOGLOBIN A1C Specimen Type: BLOOD No comment entered. HEMOGLOBIN A1C 6.9 % H 4.0-6.0 Vital Signs: All taken on the encounter date This section contains inpatient and outpatient Vital Signs collected on the date of the Encounter. Date/Time Temperature Pulse Blood Pressure Respiratory Rate SP02 Pa in Height Weight Body Mass Index Source Apr 03, 2019 10:21 AM 4 ARTUR Ireland LEVIMila [facility] Apr 03, 2019 10:01 AM 99.5 F 92 /min 106/67 mm[Hg] 18 /min 94 % 4 [facility] Immunizations: All administered on the encounter date No Data Provided for This Section Social History: Smoking Status (Most current) and Tobacco Use (All prior to enco unter date) This section includes the most current, and the historical, smoking and tobacco- related health factors from the [place] facility where the Encounter took place. Current Smoking Status This section includes the most current smoking, or tobacco -related health factor, from the [place] facility where the Encounter took place. Date/Time Current Smoking Status Comment Facility Jun 26, 2018 02:13 PM [place]-TOBACCO QUIT 15 YRS OR MORE [facility] Tobacco Use History This section includes a history of the smoking, or tobacco -related health factors, that were collected on or before the date of the Encoun ter. The data comes from the [place] facility where the Encounter took place. Date/Time Smoking Status/Tobacco Use Comment [facility] Jun 26, 2018 02:13 PM [place]-TOBACCO QUIT 15 YRS OR MORE PORSHA BLAS [facility] Jun 27, 2017 01:39 PM [facility]AC[facility] Jun 27, 2017 01:16 PM NON-TOBACCO USER ARTUR BLAS [facility] Jan 06, 2015 02:07 PM NON-[facility]BACCO [facility]ER [facility] Nov 23, 2014 10:38 AM NON-TOBACCO USER ARTUR CARRASQUILLO [facility] Oct 26, 2014 10:36 AM NON-TOBACCO USER ARTUR BLAS [facility] Oct 14, 2014 11:09 AM NON-TOBACCO USER ARTUR BLAS [facility] Advance Directives: All historical and current No Data Provided for This Section Allergies and Adverse Reactions (ADRs): All historical and current Section Date Range: From patient's date of to the date document was create d. This section includes Allergies and Adverse Reactions (ADR s) on record with [facility] for the patient. The data comes from a [facility] treatment facilities. It does not list Allergies/ADRs that were removed or entered in error. Some allergies/ADRs may be reported in t he Immunization section. Allergen Event Date Event Type Reaction(s) Severity Source [place] September 08, 2014 Propensity to adverse reactions to drug (diso rder) [facility] 15 [place] September 08, 2014 Propensity to adverse reactions to drug (diso rder) [facility] Medications: VA dispensed (-15 months) and Non-VA Documented (Obtained Outside V A) Section Date Range: 1) prescriptions processed by a VA pharmacy in the last 15 m [facility], and 2) all medications recorded in the [place] medical record as "non-VA medic ations". Pharmacy terms refer to VA pharmacy's work on prescriptions. VA patient s are advised to take their medications as instructed by their health care team. The data comes from all [place] treatment facilities. Glossary of Pharmacy Terms:Active = A prescription that can be filled at the local [place] pharmacy.Active: On Hold = An active prescription that will not be filled until pharmacy resolves the issue.Active: Susp = An active prescription that is not scheduled to be filled yet.Clinic Order = A medication received during a visit to a [place] clinic or emergency department (currently not available).Discontinued [...] may be a prescription from either the [place] or other providers that was filled outside the [place]. Or, it may be an over the [...] TEST BLOOD GLUCOSE 50 Dec 19, 2019 [id number] September 04, 2019 PAMELA RAMSEY CBGUILLERMO ACCU-CHEK CHARLES PLUS (GLUCOSE) TEST STRIP Discontinued USE 1 STRIP FOR TESTING TWO TIMES PER WEEK - DIRECTED TO TEST BLOOD GLUCOSE 50 Jul 25, 2019 [id number] Nov 12, 2018 PAMELA RAMSEY ALBUTEROL SO4 90MCG/ACTUAT (CFC-F) INHL,ORAL,6.7GM Active INHALE 2 PUFFS BY ORAL INHALATION EVERY 4 HOURS NEEDED FOR BREATHING. SHAKE WELL. RINSE MOUTHPIECE FREQUENTLY TO PREVENT CLOGGING. USE NEEDED FOR SHORTNESS OF AIR/WHEEZING FOR BREATHING. SHAKE WELL. RINSE MOUTHPIECE FREQUENTLY TO PREVENT CLOGGING. USE NEEDED FOR SHORTNESS OF AIR/WHEEZING Dec 19, 2019 [id number] September 04, 2019 PAMELA RAMSEY [facility] ALCOHOL PREP PAD Active USE 1 PAD ON SKIN BIW TO CLEAN AND DISINFECT THE SKIN 200 Sep 29, 2020 [id number] Sep 30, 2019 MAURICIO RANKIN [facility] ALCOHOL PREP PAD Discontinued USE 1 PAD ON SKIN BI W TO CLEAN AND DISINFECT THE SKIN 200 Dec 19, 2019 [id number] Jun 06, 2019 PAMELA RAMSEY [facility] ALCOHOL PREP PAD Discontinued USE 1 PAD ON SKIN BI W TO CLEAN AND DISINFECT THE SKIN 200 Jul 25, 2019 [id number] Nov 12, 2018 PAMELA RAMSEY ASCORBIC ACID 250MG TAB Non-VA TAKE ONE TABLET BY MOUTH ONCE A DAY Non-VA Documented by: SHANIQUA SCHMIDT nted at: [facility] ASPIRIN 25MG/DIPYRIDAMOLE 200MG CAP,SA Active T CHAPIN 1 CAPSULE BY MOUTH TWO TIMES A DAY - SWALLOW WHOLE. DO NOT CRUSH OR CHEW. FOR RECURRENT TIA/STROKE 180 Dec 19, 2019 [id number] Dec 20, 2018 PAMELA RAMSEY [facility] ASPIRIN 25MG/DIPYRIDAMOLE 200MG CAP,SA Discontinued T CHAPIN 1 CAPSULE BY MOUTH TWO TIMES A DAY - SWALLOW WHOLE. DO NOT CRUSH OR CHEW. FOR RECURRENT TIA/STROKE 180 Feb 06, 2019 [id number] Sep 28, 2018 ZACHARY GRECO [facility] ASPIRIN 81MG TAB,EC Non- VA TAKE ONE TABLET BY MOUTH ONCE A DAY Non-VA Documented by: PADMA LONG nted at: [facility] ATORVASTATIN CA 80MG TAB Active TAKE ONE TABLET BY MOUTH AT BEDTIME FOR CHOLESTEROL - REPORT ANY UNEXPLAINED MUSCLE PAIN/WEAKNESS TO YOUR PROVIDER 90 Dec 19, 2019 [id number] September 04, 2019 PAMELA RAMSEY ATORVASTATIN CA 80MG TAB Discontinued TAKE ONE TABLET BY MOUTH AT BEDTIME FOR CHOLESTEROL - REPORT ANY UNEXPLAINED MUSCLE PAIN/WEAKNESS TO YOUR PROVIDER 90 Dec 20, 2018 [id number] Nov 12, 2018 PAMELA RAMSEY BUDESONIDE 160MCG/FORMOTEROL FUM 4.5MCG/SPRAY INHL,ORAL,10.2 GM Active INHALE 2 PUFFS BY MOUTH TWO TIMES A DAY FOR BREATHING. SHAKE WELL. RINSE MOUTH AND SPIT AFTER EACH USE. 3 Apr 24, 2020 [id number] August 22, 2019 LISSA OATES [facility] CALCIUM/VITAMIN D TAB No n-VA TAKE BY MOUTH ONCE A DAY Non-V A Documented by: PADMA LONG nted at: [facility] CARBOXYMETHYLCELLULOSE NA 0.5% SOLN,OPH Active INSTILL ONE DROP IN BOTH EYES FOUR TIMES A DAY FOR DRY EYES 15 Feb 01, 2020 [id number] September 03 0 NEDA SHAW [facility] DICLOFENAC NA 1% GEL,TOP Discontinued APPLY 2 GRAMS A FFECTED AREA TWO TIMES A DAY NEEDED FOR PAIN AND INFLAMMATION. DO NOT EXCEED 16GM DAILY TO ANY AFFECTED JOINT OF LOWER EXTREMITIES. DO NOT EXCEED 8GM DAILY TO ANY AFFECTED JOINT OF UPPER EXTREMITES. DO NOT EXCEED TOTAL DOSE OF 32GM DAILY FOR ALL JOINTS. 100 Oct 31, 2018 [id number] Oct 06, 2018 ANAYELI KIRKPATRICK [facility] [...] FOR ALL JOINTS. 100 Jan 17, 2019 [id number] Dec 20, 2018 PAMELA RAMSEY FLUTICASONE PROPIONATE 50MCG/SPRAY SOLN,NASAL,16GM Active INSTILL 1 SPRAY IN EACH NOSTRIL ONCE A DAY SHAKE GENTLY BEFORE USE! - MUST BE USED DIRECTED FOR 3 WEEKS TO PROVIDE BENEFIT. * NO EARLY REFILLS * 1UNIT = 30DAYS AT 4 PF/DAY OR 60DAYS AT 2PF/DAY 2 Dec 19, 2019 [id number] August 26, 2019 PAMELA RAMSEY KETOTIFEN 0.025% SOLN,OPH Active INSTILL 1 DROP IN BOTH EYES TWO TIMES A DAY FOR RELIEF OF ALLERGY SYMPTOMS IN EYE(S) Feb 01, 2020 [id number] September 04, 2019 NEDA SHAW [facility] LANCET,SOFTCLIX Active USE LANCET BIW FOR TESTING BL OOD GLUCOSE DIRECTED 100 Sep 29, 2020 [id number] Sep 30, 2019 CHUCHOMAURICIOLloyd [facility] LANCET,SOFTCLIX Discontinued USE LANCET BIW FO R TESTING BLOOD GLUCOSE DIRECTED 100 Dec 19, 2019 [id number] Jun 06, 2019 PAMELA RAMSEY LANCET,SOFTCLIX Discontinued USE LANCET BIW FO R TESTING BLOOD GLUCOSE DIRECTED Jul 25, 2019 [id number] Nov 12, 2018 PAMELA RAMSEY LISINOPRIL 40MG TAB Non- VA TAKE ONE-HALF TABLET BY MOUTH EVERY MORNING Non-VA Documented by: PAMELA RAMSEY nted at: [facility] LORATADINE/PSEUDOEPHEDRINE TAB,SA Non-VA TAKE BY MOUTH No n-VA Documented by: JUAN LANG nted at: ARTUR BLAS [facility] MAGNESIUM OXIDE 400MG TAB Non-VA TAKE [...] ACID (REPLACES ACIPHEX) 180 Dec 19, 2019 [id number] August 26, 2019 PAMELA RAMSEY POLYETHYLENE GLYCOL [...] A DAY Non-VA Documented by: SAM HARDWICK Docume nted at: [facility] PREGABALIN 150MG CAP,ORAL Non-VA TAKE 1 CAPSULE BY MOUTH TWO TIMES A DAY Non-VA Docume nted by: PAMELA RAMSEY Docume nted at: [facility] SEMAGLUTIDE INJ,SOLN Non -VA INJECT SUBCUTANEOUSLY EVERY WEEK Non-VA Documented by: ANAYELI KIRKPATRICK Docume nted at: [facility] TERBINAFINE HCL 1% CREAM,TOP Active APPLY LIGHT LY TO AFFECTED AREA TWO TIMES A DAY FOR INFECTION Sep 23, 2020 [id number] Sep 24, 2019 ADRIEL HERNANDEZ UREA 20% CREAM,TOP Active APPLY LIGHTLY (20%) TO AFFECTED AREA TWO TIMES A DAY NEEDED TO PROMOTE HEALING,RUB IN UNTIL COMPLETELY ABSORBED*FOR TOPICAL USE ONLY* APPLY TO BOTH FEET DIRECTED. Sep 25, 2020 [id number] Sep 26, 2019 ADRIEL HERNANDEZ Problems (Conditions): All historical and current Section Date Range: From patient's date of to the date document was create d. This section includes a list of Problems (Conditions) know n to [facility] for the patient. It includes both active and inacti ve problems (conditions). The data comes from all [place] treatment facilities. Problem Status Problem Code Date of Onset Date of Resolution Comm ent(s) Provider Source Alcohol intake above recommended sensible limits Active [id number] PADMA LONG [facility] Allergic conjunctivitis Active 119313472 CENTERVILLENEDA [facility] Bilateral senile combined form cataracts of eyes Active [id number] 9108 COLINNEDA [facility] Bilateral tinnitus Active 1881995760200 CHASTITY JEAN [facility] Coronary arteriosclerosis Active 37347420 September 08, 2014 Entered By: PADMA LONG Comment: hx of ptca to RCA several yrs. agoSeptember 08, 2014 Entered By: PADMA LONG Comment: heart cath 09/01/14, neg. / previous stent to RCA,, [place] KALA JONES [facility] Diabetes mellitus Active 91802483 PAMELA RAMSEY [facility] Disorder of pancreas Active 0932569 September 08, 2014 Entered By: PADMA LONG Comment: 2.5cm low density lseion in bodyMay 2014 Entered By: PADMA LONG Comment: question of communication with pancreatic ductMa2014 Entered By: PADMA LONG Comment: favored to be cystic pancreatic cancerSeptember 08, 2014 Entered By: PADMA LONG Comment: per abdominal CT 09/01/14, [place] PADMA LONG [facility] Dry eyes Active 415812065 NEDA SHAW [facility] Gastro-esophageal reflux disease without esophagitis ( SNOMED CT 223200210) Active 643106309 ALF GUEVARA [facility] History of malignant neoplasm of lung Active 558402462 CHAPO BARRETO [facility] Hyperlipidemia (SNOMED CT 91394066) Active 23053330 PAMELA RAMSEY [facility] Lung mass Active 027950578 September 08, 2014 E ntered By: PADMA LONG Comment: 4.5 cm mass, post. segment right upper lobe.September 08, 2014 Entered By: PADMA LONG Comment: mild adenopathy in mediastinum and bilat. hilaMa2014 Entered By: PADMA LONG Comment: most likely related to lung cancerSeptember 08, 2014 Entered By: PADMA LONG Comment: per ct angio of chest with contrast 09/01/14,via [place]ida menesesnhSep 23, 2014 Entered By: PADMA LONG Comment: per path report- mod. differentiated bronchogenic adenoca. 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 Active 52670417 SAM HARDWICK [facility] Obesity Active 629858991 [facility] Obstructive sleep apnea syndrome (SNOMED CT 06234224) Active 470526 015 [place] ARTUR [facility] Pancreatic cyst Active 35687825 PAOLAJAYLENE Cortes [facility] Papilloma of right eyelid Active [id number] NEDA SHAW [facility] Polyp of colon Active 13213648 Jan 23 Entered By: PADMA LONG Comment: c-scope 01/17/16, multiple benign colonic polypsJun 28, 2017 Entered By: PADMA LONG Comment: c-scope,06/25/17,[facility], three benign polyps- sigmoid colon, transverse colon,cecum. see path report cprs SHARRON TORRES [facility] Pulmonary emphysema Active 04721586 0 BRIANA GAVIN [facility] Sensorineural hearing loss, bilateral Active 606357816 CHASTITY JEAN [facility] Snoring Active 76579988 SONG BULLOCK [facility] Type 2 diabetes mellitus without complication Active 926114022 NEDA SHAW [facility] Environmental Allergies (ICD-9-CM 477.9) Inactive 477.9 Dec 18, 2017 PADMA LONG [facility] External hemorrhoids without mention of complication (ICD-9- CM 455.3) Inactive 455.3 Dec 18, 2017 PADMA LONG [facility] Impotence of organic origin (ICD-9-CM 607.84) Inactive 607.84 Dec 18, 2017 PADMA LONG [facility] Screening for Lipoid disorders (ICD-9-CM V77.91) Inactive V77.91 Jan 18, 2007 [facility] Stye * (ICD-9-CM 373.11) Inactive 373.11 Dec 18, 201 8 Jan 18, 2007 Entered By: PADMA LONG Comment: bilat lower lids, chronic/recurrent PADMA LONG ROOPA [facility] Tobacco Use Disorder, [...] the Encounter. The data comes from all [place] treatment facilities. Date/Time Pathology Report Provider Source [...] 11:11) Microscopic examination is performed. DIAGNOSIS: Specimen: [id number] Spec Type: SURGICAL Abdulkadir: 04/03/19 Rec: 04/03/19-1241 PATHOLOGIC DIAGNOSIS Skin lesion, right upper cheek, biopsy: 1. Seborrheic keratosis, not involving resection margins. 2. Solar elastosis. Skin lesion, right lower mid margin, biopsy: 1. Seborrheic keratosis, with tumor at tissue edge/margin, but with benign features. LL COPIES TO: SAM HARDWICK [facility] PATHOLOGIST CODES: 86139/2 at 1235 The gross and microscopic examinations and interpretation were performed at [facility] Department of Pathology, [address] [place] [id number]. Slides and paraffin blocks are on file at [facility]. =--=--=--=--=--=--=--=--=--=--=--=--=--=--=--=--=--=--=--=--=--=--=--=--=--=-- Performing Laboratory: Surgical Pathology Report Performed By: [facility] [CLIA# [id number]] [address] [place] [id number] [address] [facility] 15 Encounter Notes: All associated encounter notes This section contains the clinical notes associated to the Encounter. Date/Time Encounter Note(s) Provider Source Apr 03, 2019 10:22 AM PROCEDURE NOTE: LOCAL TITLE: WI-AMBULATORY PROCEDURE NOTE STANDARD TITLE: PROCEDURE NOTE DATE OF NOTE: APR 03, 2019@10:22 ENTRY DATE: APR 03, 2019@10:22:26 AUTHOR: NÉSTOR ZARATE COSIGNER: URGENCY: STATUS: COMPLETED WI-AMBULATORY PROCEDURE NOTE [...] TIME OUT IMMEDIATELY BEFORE PROCEDURE: Dr Ronen Zarate RN Maria Victoria Jensen ACTUARIAL DIRECTOR Patient states full name and full social [...] up. Patient dismissed to home. /gisell/ NÉSTOR ZARATE RN Signed: 04/03/2019 10:45 NÉSTOR ZARATE [facility] Apr 03, 2019 10:21 AM NURSING OUTPATIENT NOTE: LOCAL TITLE: WI-SPECIALTY PRE-APPT STANDARD TITLE: NURSING OUTPATIENT NOTE DATE OF NOTE: APR 03, 2019@10:21 ENTRY DATE: APR 03, 2019@10:21:13 AUTHOR: NÉSTOR ZARATE EXP COSIGNER: URGENCY: STATUS: COMPLETED WI-PAIN: Pain Documentation: [...] HGBA1c > 7, repeat in 3 months /es/ NÉSTOR ZARATE RN Signed: 04/03/2019 10:22 NÉSTOR ZARATE [facility] Apr 03, 2019 09:53 AM PROCEDURE NOTE: LOCAL TITLE: OR-AMBULATORY PROCEDURE ROOM NOTE STANDARD TITLE: PROCEDURE NOTE DATE OF NOTE: APR 03, 2019@09:53 ENTRY DATE: APR 03, 2019@09:53:54 AUTHOR: SAM HARDWICK COSIGNER: URGENCY: STATUS: COMPLETED Note Title: OR-AMBULATORY PROCEDURE ROOM NOTE Attending Physician: Sam Hardwick [...] REMOVAL APRIL 14. /gisell/ SAM HARDWICK Staff Laser Engineer Signed: 04/03/2019 10:37 SAM HARDWICK [facility]
--- OUTSIDE RECORDS SUMMARY | 2019-12-02 07:33 | XMS REPORT | Encounter Summary ---
Author [facility] of [facility] Affai rs Address [address] [place] [address] Phone Unavailable Care Team Providers Care Airline Reservationist Name Role Phone ADRIEL HERNANDEZ PCP Unavailable [...] Comments: Dietary counseling and surveillance GARY HARRINGTON [facility] IHE Encounter Template Text not used by PA Assessments - Encounter Diagnoses This section includes the primary and secondary diag noses documented for the Encounter. Date/Time Primary/Secondary Diagnosis Diagnosis Name Provider Source Apr 28, 2019 11:00 AM PRIMARY Dietary counseling and rain veillance TASHA LIU [facility] Apr 28, 2019 11:00 AM SECONDARY Body mass index (BMI) 31.0 -31.9, adult TASHA LIU [facility] Apr 28, 2019 11:00 AM SECONDARY Obesity, unspecified Sophia LIU [facility] Apr 28, 2019 11:00 AM SECONDARY Type 2 diabetes mellitus w ithout complications NOETASHA Katz ARTUR BLAS [facility] Plan of Treatment: Future Appointments (+ 6 months) and Future Tests (+/- 45 day s) The Plan of Treatment section includes future care activities for the patient fr om all [facility] facilities. This section includes future appointments and fu ture orders which are active, pending or scheduled. Future Appointments This section includes appointments that were scheduled t o occur 6 months from the date of the Encounter, up to a maximum of 20 appointme nts. The data comes from all [facility]. Appointment Date/Time Appointment Type Appointment Facili ty Name Jun 25, 2019 11:30 AM AMBULATORY - NONE ARTUR BLAS [facility] Jun 25, 2019 01:15 PM AMBULATORY - MEDICINE ARTUR BLAS [facility] Jul 23, 2019 11:00 AM [facility] Jul 25, 2019 08:00 AM [facility] Aug 07, 2019 10:30 AM AMBULATORY - MEDICINE ARTUR BLAS [facility] Sep 23, 2019 11:15 AM AMBULATORY - NONE [facility] Sep 23, 2019 11:30 AM AMBULATORY - MEDICINE [facility] Oct 07, 2019 09:15 AM AMBULATORY - NONE [facility] Active, Pending, and [...] the Encounter. The data comes from all [facility]. Test Date/Time Test Type Test Details Facility Name Apr 01, 2019 10:33 AM Consult Order [facility] [id number] Cons Oil Rigger's Choice [facility] [...] QUIT 15 YRS OR MORE PORSHA BLAS [facility] Tobacco Use History This section includes a history of the smoking, or tobacco -related health factors, that were collected on or before the date of the Encoun ter. The data comes from the [place] facility where the Encounter took place. Date/Time Smoking Status/Tobacco Use Comment [facility] Jun 26, 2018 02:13 PM VA-TOBACCO QUIT 15 YRS OR MORE PORSHA BLAS [facility] Jun 27, 2017 01:39 PM NON-TOBACCO USER [facility] Jun 27, 2017 01:16 PM [...] the patient. The data comes from a [facility] treatment facilities. It does not list Allergies/ADRs that were removed or entered in error. Some allergies/ADRs may be reported in t he Immunization section. Allergen Event Date Event Type Reaction(s) Severity Source BRILINTA September 08, 2014 Propensity to adverse reactions to drug (diso rder) [facility] PLAVIX September 08, 2014 Propensity to adverse reactions to drug (diso rder) [facility] 15 Medications: VA dispensed [...] TEST BLOOD GLUCOSE 50 Dec 19, 2019 [id number] September 04, 2019 PAMELA RAMSEY ACCU-CHEK CHARLES PLUS (GLUCOSE) TEST STRIP Discontinued USE 1 STRIP FOR TESTING TWO TIMES PER WEEK - DIRECTED TO TEST BLOOD GLUCOSE 50 Jul 25, 2019 [id number] Nov 12, 2018 PAMELA RAMSEY ALBUTEROL SO4 90MCG/ACTUAT (CFC-F) INHL,ORAL,6.7GM Active INHALE 2 PUFFS BY ORAL INHALATION EVERY 4 HOURS NEEDED FOR BREATHING. SHAKE WELL. RINSE MOUTHPIECE FREQUENTLY TO PREVENT CLOGGING. USE NEEDED FOR SHORTNESS OF AIR/WHEEZING FOR BREATHING. SHAKE WELL. RINSE MOUTHPIECE FREQUENTLY TO PREVENT CLOGGING. USE NEEDED FOR SHORTNESS OF AIR/WHEEZING 1 Dec 19, 2019 [id number] September 04, 2019 PAMELA RAMSEY CB ALCOHOL PREP PAD Active USE 1 PAD ON SKIN BIW TO CLEAN AND DISINFECT THE SKIN 200 Sep 29, 2020 [id number] Sep 30, 2019 MAURICIO RANKIN [facility] ALCOHOL PREP PAD Discontinued USE 1 PAD ON SKIN BI W TO CLEAN AND DISINFECT THE SKIN 200 Dec 19, 2019 [id number] Jun 06, 2019 PAMELA RAMSEY [facility] ALCOHOL PREP PAD Discontinued USE 1 PAD ON SKIN BI W TO CLEAN AND DISINFECT THE SKIN 200 Jul 25, 2019 [id number] Nov 12, 2018 PAMELA RAMSEY CBGUILLERMO ASCORBIC ACID 250MG TAB Non-VA TAKE ONE TABLET BY MOUTH ONCE A DAY Non-VA Documented by: SHANIQUA SCHMIDT nted at: [facility] ASPIRIN 25MG/DIPYRIDAMOLE 200MG CAP,SA Active T CHAPIN 1 CAPSULE BY MOUTH TWO TIMES A DAY - SWALLOW WHOLE. DO NOT CRUSH OR CHEW. FOR RECURRENT TIA/STROKE 180 Dec 19, 2019 [id number] Dec 20, 2018 PAMELA RAMSEY [facility] ASPIRIN 25MG/DIPYRIDAMOLE 200MG CAP,SA Discontinued T CHAPIN 1 CAPSULE BY MOUTH TWO TIMES A DAY - SWALLOW WHOLE. DO NOT CRUSH OR CHEW. FOR RECURRENT TIA/STROKE 180 Feb 06, 2019 [id number] Sep 28, 2018 ZACHARY GRECO [facility] ASPIRIN 81MG TAB,EC Non- VA TAKE ONE TABLET BY MOUTH ONCE A DAY Non-VA Documented by: PADMA LONG nted at: [facility] ATORVASTATIN CA 80MG TAB Active TAKE ONE TABLET BY MOUTH AT BEDTIME FOR CHOLESTEROL - REPORT ANY UNEXPLAINED MUSCLE PAIN/WEAKNESS TO YOUR PROVIDER 90 Dec 19, 2019 [id number] September 04, 2019 PAMELA RAMSEY ATORVASTATIN CA 80MG TAB Discontinued TAKE ONE TABLET BY MOUTH AT BEDTIME FOR CHOLESTEROL - REPORT ANY UNEXPLAINED MUSCLE PAIN/WEAKNESS TO YOUR PROVIDER 90 Dec 20, 2018 [id number] Nov 12, 2018 PAMELA RAMSEY BUDESONIDE 160MCG/FORMOTEROL FUM 4.5MCG/SPRAY INHL,ORAL,10.2 GM Active INHALE 2 PUFFS BY MOUTH TWO TIMES A DAY FOR BREATHING. SHAKE WELL. RINSE MOUTH AND SPIT AFTER EACH USE. 3 Apr 24, 2020 [id number] August 22, 2019 LISSA OATES [facility] CALCIUM/VITAMIN D TAB No n-VA TAKE BY MOUTH ONCE A DAY Non-V A Documented by: PADMA LONG nted at: [facility] CARBOXYMETHYLCELLULOSE NA 0.5% SOLN,OPH Active INSTILL ONE DROP IN BOTH EYES FOUR TIMES A DAY FOR DRY EYES 15 Feb 01, 2020 [id number] September [address] [facility] DICLOFENAC NA 1% GEL,TOP Discontinued APPLY 2 GRAMS A FFECTED AREA TWO TIMES A DAY NEEDED FOR PAIN AND INFLAMMATION. DO NOT EXCEED 16GM DAILY TO ANY AFFECTED JOINT OF LOWER EXTREMITIES. DO NOT EXCEED 8GM DAILY TO ANY AFFECTED JOINT OF UPPER EXTREMITES. DO NOT EXCEED TOTAL DOSE OF 32GM DAILY FOR ALL JOINTS. 100 Oct 31, 2018 [id number] Oct 06, 2018 [facility] DICLOFENAC NA 1% GEL,TOP APPLY 2 GRAMS A FFECTED AREA TWO TIMES A DAY NEEDED FOR PAIN AND INFLAMMATION. DO NOT EXCEED 16GM DAILY TO ANY AFFECTED JOINT OF LOWER EXTREMITIES. DO NOT EXCEED 8GM DAILY TO ANY AFFECTED JOINT OF UPPER EXTREMITES. DO NOT EXCEED TOTAL DOSE OF 32GM DAILY FOR ALL JOINTS. 100 Jan 17, 2019 [id number] Dec 20, 2018 PAMELA RAMSEY [facility] FLUTICASONE PROPIONATE 50MCG/SPRAY SOLN,NASAL,16GM Active INSTILL 1 SPRAY IN EACH NOSTRIL ONCE A DAY SHAKE GENTLY BEFORE USE! - MUST BE USED DIRECTED FOR 3 WEEKS TO PROVIDE BENEFIT. * NO EARLY REFILLS * 1UNIT = 30DAYS AT 4 PF/DAY OR 60DAYS AT 2PF/DAY 2 Dec 19, 2019 [id number] August 26, 2019 PAMELA RAMSEY [facility] KETOTIFEN 0.025% SOLN,OPH Active INSTILL 1 DROP IN BOTH EYES TWO TIMES A DAY FOR RELIEF OF ALLERGY SYMPTOMS IN EYE(S) 10 Feb 01, 2020 [id number] September 04, 2019 [facility] LANCET,SOFTCLIX Active USE LANCET BIW FOR TESTING BL OOD GLUCOSE DIRECTED 100 Sep 29, 2020 [id number] Sep 30, 2019 MAURICIO RANKIN [facility] LANCET,SOFTCLIX Discontinued USE LANCET BIW FO R TESTING BLOOD GLUCOSE DIRECTED 100 Dec 19, 2019 [id number] Jun 06, 2019 PAMELA RAMSEY LANCET,SOFTCLIX Discontinued USE LANCET BIW FO R TESTING BLOOD GLUCOSE DIRECTED 100 Jul 25, 2019 [id number] Nov 12, 2018 PAMELA RAMSEY LISINOPRIL 40MG TAB Non- VA TAKE ONE-HALF TABLET BY MOUTH EVERY MORNING Non-VA Documented by: PAMELA RAMSEY nted at: [facility] LORATADINE/PSEUDOEPHEDRINE TAB,SA Non-VA TAKE BY MOUTH No n-VA Documented by: JUAN LANG nted at: ARTUR BLAS [facility] MAGNESIUM OXIDE 400MG TAB Non-VA TAKE ONE [...] ACID (REPLACES ACIPHEX) 180 Dec 19, 2019 [id number] August 26, 2019 PAMELA RAMSEY POLYETHYLENE GLYCOL 3350 PWDR,ORAL Non-VA TAKE 1 CAPFUL (17GM) BY MOUTH ONCE A DAY Non-VA Documented by: SHANIQUA SCHMIDT nted at: [facility] POTASSIUM GLUCONATE TAB Non-VA TAKE 90 MG BY MOUTH ONCE A DAY N on-VA Documented by: SHANIQUA SCHMIDT nted at: [facility] PRASUGREL HCL 10MG TAB N on-VA TAKE ONE TABLET BY MOUTH ONCE A DAY Non-VA Documented by: KATHERINE MATT nted at: [facility] PREGABALIN 150MG CAP,ORAL Non-VA TAKE 1 CAPSULE BY MOUTH TWO TIMES A DAY Non-VA Docume nted by: PAMELA RAMSEY nted at: [facility] SEMAGLUTIDE INJ,SOLN Non -VA INJECT SUBCUTANEOUSLY EVERY WEEK Non-VA Documented by: ANAYELI KIRKPATRICK nted at: ARTUR Shu [facility] TERBINAFINE HCL 1% CREAM,TOP Active APPLY LIGHT LY TO AFFECTED AREA TWO TIMES A DAY FOR INFECTION 90 Sep 23, 2020 [id number] Sep 24, 2019 ADRIEL HERNANDEZ UREA 20% CREAM,TOP Active APPLY LIGHTLY (20%) TO AFFECTED AREA TWO TIMES A DAY NEEDED TO PROMOTE HEALING,RUB IN UNTIL COMPLETELY ABSORBED*FOR TOPICAL USE ONLY* APPLY TO BOTH FEET DIRECTED. 90 Sep 25, 2020 [id number] Sep 26, 2019 ADRIEL HERNANDEZ Problems (Conditions): [...] Alcohol intake above recommended sensible limits Active 786047075 PADMA LONG [facility] Allergic conjunctivitis Active 056152952 HENNINGFACUNDONEDA Luda [facility] Bilateral senile combined form cataracts of eyes Active 46781483901 9[facility] Luda [facility] Bilateral tinnitus Active 0361433290283 CHASTITY JEAN [facility] Coronary arteriosclerosis Active 01258256 September 08, 2014 Entered By: PADMA LONG Comment: hx of ptca to RCA several yrs. 2014 Entered By: PADMA LONG Comment: heart cath 09/01/14, neg. 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 Entered By: PADMA LONG Comment: per abdominal CT 09/01/14, via [place], ks PADMA LONG [facility] Dry eyes Active 534737616 [facility] Gastro-esophageal reflux disease without esophagitis ( SNOMED CT 917852790) Active 141014503 ALF GUEVARA [facility] History of malignant neoplasm of lung Active 818061907 CHAPO BARRETO [facility] Hyperlipidemia (SNOMED CT 07303001) Active 84112368 PAMELA RAMSEY [facility] Lung mass Active 316591396 September 08, 2014 E ntered By: PADMA LONG Comment: 4.5 cm mass, post. segment right upper lobe.September 08, 2014 Entered By: PADMA LONG Comment: mild adenopathy in mediastinum and bilat. hilaMay 2014 Entered By: PADMA LONG Comment: most likely related to lung cancerMay 2014 Entered By: PADMA LONG Comment: per ct angio of chest with contrast 09/01/14,via [place], [place] 2014 Entered By: PADMA LONG Comment: per path report- mod. differentiated bronchogenic adenoca. 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 Obesity Active 414566552 [facility] Obstructive sleep apnea syndrome (SNOMED CT 02635213) Active 636043 015 PHILIPPE DOUGLASS [facility] Pancreatic cyst Active 47801029 JAYLENE GUEVARA [facility] Papilloma of right eyelid Active [id number] NEDA SHAW [facility] Polyp of colon Active 66951441 Jan 23 16 Entered By: PADMA LONG Comment: c-scope 01/17/16, multiple benign colonic polypsMar 2017 Entered By: PADMA LONG Comment: c-scope,06/25/17,[facility], three benign polyps- sigmoid colon, transverse colon,cecum. see path report cprs SHARRON TORRES [facility] Pulmonary emphysema Active 38650425 0 BRIANA LESLYE [facility] Sensorineural hearing loss, bilateral Active 713427884 CHASTITY JEAN [facility] Snoring Active 56976996 SONG BULLOCK [facility] Type 2 diabetes mellitus without complication Active 009055951 NEDA SHAW [facility] Environmental Allergies (ICD-9-CM 477.9) Inactive 477.9 Dec 18, 2017 PADMA LONG [facility] External hemorrhoids without mention of complication (ICD-9- CM 455.3) Inactive 455.3 Dec 18, 2017 PADMA LONG [facility] Impotence of organic origin (ICD-9-CM 607.84) Inactive 607.84 Dec 18, 2017 PADMA LONG [facility] Screening for Lipoid disorders (ICD-9-CM V77.91) Inactive V77.91 Jan 18, 2007 PADMA LONG [facility] Stye * (ICD-9-CM 373.11) Inactive 373.11 Dec 18, 8 Jan 18, 2007 Entered By: PADMA LONG Comment: bilat lower lids, chronic/recurrent PADMA LONG [facility] Tobacco Use Disorder, Continuous Inactive 305.1 [...] the Encounter. The data comes from all [place] treatment facilities. Date/Time Pathology Report Provider Source [...] 11:11) Microscopic examination is performed. DIAGNOSIS: Specimen: [id number] Spec Type: SURGICAL Abdulkadir: 04/03/19 Rec: 04/03/19-1241 PATHOLOGIC DIAGNOSIS Skin lesion, right upper cheek, biopsy: 1. Seborrheic keratosis, not involving resection margins. 2. Solar elastosis. Skin lesion, right lower mid margin, biopsy: 1. Seborrheic keratosis, with tumor at tissue edge/margin, but with benign features. LL COPIES TO: KATHERINE MATT [facility] PATHOLOGIST CODES: 70606/2 at 1235 The gross and microscopic examinations and interpretation were performed at [facility] Department of Pathology, [address] [place] [address]. Slides and paraffin blocks are on file at [facility]. =--=--=--=--=--=--=--=--=--=--=--=--=--=--=--=--=--=--=--=--=--=--=--=--=--=-- Performing Laboratory: Surgical Pathology Report Performed By: [facility] [CLIA# [id number]] [address] [place] [address] [facility] 15 Encounter Notes: All associated encounter notes This section contains the clinical notes associated to the Encounter. Date/Time Encounter Note(s) Provider Source Apr 28, 2019 11:19 AM MOVE TELEPHONE ENCOUNTER NOT E: LOCAL TITLE: WI-WEIGHT MANAGEMENT/MOVE! TELEPHONE STANDARD TITLE: MOVE TELEPHONE ENCOUNTER NOTE DATE OF NOTE: APR 28, 2019@11:19 ENTRY DATE: APR 28, 2019@11:19:17 AUTHOR: GARY HARRINGTON EXP COSIGNER: URGENCY: STATUS: COMPLETED [facility]-PHONE DIET CLINIC Date and Time of Call: 04/28/19 Length of Call: [address] RDN called and spoke with [place]. Reason for Call/Diagnosis: DM2; Class I obesity [...] 161 197 H 44 77.6 Subjective Data: [place] states: he's had a rough month-had 4 more stents placed & COPD flaired up again; will be moving back to [place] the end of this month-has worked in [employer] for past 6-7 years; is in cardiac rehab for 30 sessions-has had 5 so far; gained 5# over the holidays; bs's have been good in [id number]/dl-started on Ozembic and Metformin was decreased in half; he and will join [facility] [employer] when she gets there. Plan: Provided contact information for [place] to call with questions or to schedule a future appointment with the dietitian. /gisell/ GARY ARANDAS,RD,LD,CDE CLINICAL DIETITIAN Signed: 04/28/2019 11:23 LEN,GARY BLAS [facility]
--- OUTSIDE RECORDS SUMMARY | 2019-12-02 07:33 | XMS REPORT | Encounter Summary ---
Author Author [facility] Address [address] [place] [address] Phone Unavailable Care Team Providers Care Chip Machine Operator Name Role Phone ADRIEL HERNANDEZ [...] Obstructive sleep apnea (adult) (pediatric) PHILIPPE DOUGLASS [facility] IHE Encounter Template Text not used by [place] Assessments - Encounter Diagnoses This section includes the primary and secondary diag noses documented for the Encounter. Date/Time Primary/Secondary Diagnosis Diagnosis Name Provider Source Mar 26, 2019 09:36 AM PRIMARY Obstructive sleep apnea (a dult) (pediatric) DELMERKIMBERLY [facility] Plan of Treatment: Future Appointments (+ [...] appointme nts. The data comes from all [facility]. Appointment Date/Time Appointment Type Appointment Facili ty Name Mar 26, 2019 10:00 AM AMBULATORY - NONE ARTUR BLAS [facility] Apr 03, 2019 10:00 AM AMBULATORY - SURGERY ARTUR BLAS [facility] Apr 14, 2019 10:00 AM AMBULATORY - SURGERY [facility] Apr 28, 2019 11:00 AM AMBULATORY - NONE ARTUR BL[facility] Jun 25, 2019 11:30 AM AMBULATORY - NONE ARTUR BL[facility] Jun 25, 2019 01:15 PM AMBULATORY - MEDICINE ARTUR Shu BLAS [facility] Jul 23, 2019 11:00 AM AMBULATORY - NONE [facility]UR BL[facility] Jul 25, 2019 08:00 AM AMBULATORY - NONE ARTUR BLAS [facility] Aug 07, 2019 10:30 AM AMBULATORY - MEDICINE ARTUR Shu LEVIMila [facility] Active, Pending, and Scheduled Orders [...] the Encounter. The data comes from all [facility]. Test Date/Time Test Type Test Details Facility Name Apr 01, 2019 10:33 AM Consult Order [facility]-[id number] Cons Field Account Manager's Choice [facility] Surgical Procedures: All associated to [...] Comment Mar 21, 2019 08:55 AM [facility] HEMOGLOBIN A1C Specimen Type: BLOOD No [...] YRS OR MORE PORSHA BLAS [facility] Tobacco Use History This section includes a history of the smoking, or tobacco -related health factors, that were collected on or before the date of the Encoun ter. The data comes from the [place] facility where the Encounter took place. Date/Time Smoking Status/Tobacco Use Comment [facility] Jun 26, 2018 02:13 PM VA-TOBACCO QUIT 15 YRS OR MORE PORSHA BLAS [facility] Jun 27, 2017 01:39 PM NON-TOBACCO [...] TEST BLOOD GLUCOSE 50 Dec 19, 2019 [id number] September 04, 2019 PAMELA RAMSEY [facility] ACCU-CHEK CHARLES PLUS (GLUCOSE) TEST STRIP Discontinued USE 1 STRIP FOR TESTING TWO TIMES PER WEEK - DIRECTED TO TEST BLOOD GLUCOSE 50 Jul 25, 2019 [id number] Nov 12, 2018 PAMELA RAMSEY ALBUTEROL SO4 90MCG/ACTUAT (CFC-F) INHL,ORAL,6.7GM Active INHALE 2 PUFFS BY ORAL INHALATION EVERY 4 HOURS NEEDED FOR BREATHING. SHAKE WELL. RINSE MOUTHPIECE FREQUENTLY TO PREVENT CLOGGING. USE NEEDED FOR SHORTNESS OF AIR/WHEEZING FOR BREATHING. SHAKE WELL. RINSE MOUTHPIECE FREQUENTLY TO PREVENT CLOGGING. USE NEEDED FOR SHORTNESS OF AIR/WHEEZING Dec 19, 2019 [id number] September 04, 2019 PAMELA RAMSEY ALCOHOL PREP PAD Active USE 1 PAD ON SKIN BIW TO CLEAN AND DISINFECT THE SKIN 200 Sep 29, 2020 [id number] Sep 30, 2019 MAURICIO RANKIN [facility] ALCOHOL PREP PAD Discontinued USE 1 PAD ON SKIN BI W TO CLEAN AND DISINFECT THE SKIN 200 Dec 19, 2019 [id number] Jun 06, 2019 PAMELA RAMSEY CBGUILLERMO ALCOHOL PREP PAD Discontinued USE 1 PAD ON SKIN BI W TO CLEAN AND DISINFECT THE SKIN 200 Jul 25, 2019 [id number] Nov 12, 2018 PAMELA RAMSEY ASCORBIC ACID 250MG TAB Non-VA TAKE ONE TABLET BY MOUTH ONCE A DAY Non-VA Documented by: SHANIQUA SCHMIDT nted at: [facility] ASPIRIN 25MG/DIPYRIDAMOLE 200MG CAP,SA Active T CHAPIN 1 CAPSULE BY MOUTH TWO TIMES A DAY - SWALLOW WHOLE. DO NOT CRUSH OR CHEW. FOR RECURRENT TIA/STROKE 180 Dec 19, 2019 [id number] Dec 20, 2018 PAMELA RAMSEY [facility] ASPIRIN 25MG/DIPYRIDAMOLE 200MG CAP,SA Discontinued T CHAPIN 1 CAPSULE BY MOUTH TWO TIMES A DAY - SWALLOW WHOLE. DO NOT CRUSH OR CHEW. FOR RECURRENT TIA/STROKE 180 Feb 06, 2019 [id number] Sep 28, 2018 ZACHARY GRECO [facility] ASPIRIN 81MG TAB,EC Non- VA TAKE ONE TABLET BY MOUTH ONCE A DAY Non-VA Documented by: PADMA LONG nted at: [facility] ATORVASTATIN CA 80MG TAB Active TAKE ONE TABLET BY MOUTH AT BEDTIME FOR CHOLESTEROL - REPORT ANY UNEXPLAINED MUSCLE PAIN/WEAKNESS TO YOUR PROVIDER 90 Dec 19, 2019 [id number] September 04, 2019 PAMELA RAMSEY ATORVASTATIN CA 80MG TAB Discontinued TAKE ONE TABLET BY MOUTH AT BEDTIME FOR CHOLESTEROL - REPORT ANY UNEXPLAINED MUSCLE PAIN/WEAKNESS TO YOUR PROVIDER 90 Dec 20, 2018 [id number] Nov 12, 2018 PAMELA RAMSEY BUDESONIDE 160MCG/FORMOTEROL FUM 4.5MCG/SPRAY INHL,ORAL,10.2 GM Active INHALE 2 PUFFS BY MOUTH TWO TIMES A DAY FOR BREATHING. SHAKE WELL. RINSE MOUTH AND SPIT AFTER EACH USE. 3 Apr 24, 2020 [id number] August 22, 2019 [facility] CALCIUM/VITAMIN D TAB No n-VA TAKE BY MOUTH ONCE A DAY Non-V A Documented by: PADMA LONG nted at: [facility] CARBOXYMETHYLCELLULOSE NA 0.5% SOLN,OPH Active INSTILL ONE DROP IN BOTH EYES FOUR TIMES A DAY FOR DRY EYES Feb 01, 2020 [id number] September 03 0 [facility] DICLOFENAC NA 1% GEL,TOP Discontinued APPLY 2 GRAMS A FFECTED AREA TWO TIMES A DAY NEEDED FOR PAIN AND INFLAMMATION. DO NOT EXCEED 16GM DAILY TO ANY AFFECTED JOINT OF LOWER EXTREMITIES. DO NOT EXCEED 8GM DAILY TO ANY AFFECTED JOINT OF UPPER EXTREMITES. DO NOT EXCEED TOTAL DOSE OF 32GM DAILY FOR ALL JOINTS. 100 Oct 31, 2018 [id number] Oct 06, 2018 ANAYELI KIRKPATRICK [facility] DICLOFENAC NA 1% GEL,TOP APPLY 2 GRAMS A FFECTED AREA TWO TIMES A DAY NEEDED FOR PAIN AND INFLAMMATION. DO NOT EXCEED 16GM DAILY TO ANY AFFECTED JOINT OF LOWER EXTREMITIES. DO NOT EXCEED 8GM DAILY TO ANY AFFECTED JOINT OF UPPER EXTREMITES. DO NOT EXCEED TOTAL DOSE OF 32GM DAILY FOR ALL JOINTS. 100 Jan 17, 2019 [id number] Dec 20, 2018 PAMELA RAMSEY FLUTICASONE PROPIONATE 50MCG/SPRAY SOLN,NASAL,16GM Active INSTILL 1 SPRAY IN EACH NOSTRIL ONCE A DAY SHAKE GENTLY BEFORE USE! - MUST BE USED DIRECTED FOR 3 WEEKS TO PROVIDE BENEFIT. * NO EARLY REFILLS * 1UNIT = 30DAYS AT 4 PF/DAY OR 60DAYS AT 2PF/DAY 2 Dec 19, 2019 [id number] August 26, 2019 PAMELA RAMSEY KETOTIFEN 0.025% SOLN,OPH Active INSTILL 1 DROP IN BOTH EYES TWO TIMES A DAY FOR RELIEF OF ALLERGY SYMPTOMS IN EYE(S) Feb 01, 2020 [id number] September 04, 2019 [facility] LANCET,SOFTCLIX Active USE LANCET BIW FOR TESTING BL OOD GLUCOSE DIRECTED 100 Sep 29, 2020 [id number] Sep 30, 2019 MAURICIO RANKIN [facility] LANCET,SOFTCLIX Discontinued USE LANCET BIW FO R TESTING BLOOD GLUCOSE DIRECTED 100 Dec 19, 2019 [id number] Jun 06, 2019 PAMELA RAMSEY LANCET,SOFTCLIX Discontinued USE LANCET BIW FO R TESTING BLOOD GLUCOSE DIRECTED Jul 25, 2019 [id number] Nov 12, 2018 PAMELA RAMSEY LISINOPRIL 40MG TAB Non- VA TAKE ONE-HALF TABLET BY MOUTH EVERY MORNING Non-VA Documented by: PAMELA RAMSEY nted at: [facility] LORATADINE/PSEUDOEPHEDRINE TAB,SA Non-VA TAKE BY MOUTH No n-VA Documented by: JUAN LANG nted at: ARTUR BLAS [facility] MAGNESIUM OXIDE 400MG TAB Non-VA TAKE [...] ACID (REPLACES ACIPHEX) 180 Dec 19, 2019 [id number] August 26, 2019 PAMELA RAMSEY POLYETHYLENE GLYCOL [...] Non-VA Documented by: KATHERINE MATT nted at: [facility] PREGABALIN 150MG CAP,ORAL Non-VA TAKE 1 CAPSULE BY MOUTH TWO TIMES A DAY Non-VA Docume nted by: PAMELA RAMSEY Docume nted at: [facility] SEMAGLUTIDE INJ,SOLN Non -VA INJECT SUBCUTANEOUSLY EVERY WEEK Non-VA Documented by: ANAYELI KIRKPATRICK Docume nted at: [facility]UR [place] [facility] TERBINAFINE HCL 1% CREAM,TOP Active APPLY LIGHT LY TO AFFECTED AREA TWO TIMES A DAY FOR INFECTION Sep 23, 2020 [id number] Sep 24, 2019 ADRIEL HERNANDEZ UREA 20% CREAM,TOP Active APPLY LIGHTLY (20%) TO AFFECTED AREA TWO TIMES A DAY NEEDED TO PROMOTE HEALING,RUB IN UNTIL COMPLETELY ABSORBED*FOR TOPICAL USE ONLY* APPLY TO BOTH FEET DIRECTED. 90 Sep 25, 2020 [id number] Sep 26, 2019 ADRIEL HERNANDEZ Problems (Conditions): [...] Alcohol intake above recommended sensible limits Active 571399869 [facility]AD[facility] Allergic conjunctivitis Active 266901199 COLINNEDA [facility] Bilateral senile combined form cataracts of eyes Active 31257340340 9108 CRANFILLS GAPNEDA [facility] Bilateral tinnitus Active [id number] CHASTITY JEAN [facility] Coronary arteriosclerosis Active 02263386 September 08, 2014 Entered By: PADMA LONG Comment: hx of ptca to RCA several yrs. 2014 Entered By: PADMA LONG Comment: heart cath 09/01/14, neg. / previous stent to RCA,, via [place] HATCHER, JENNEY R ROBERT J. [facility] Diabetes mellitus Active 68539567 [facility]ELA RAM[facility] Disorder of pancreas Active 1742448 September 08, 2014 Entered By: PADMA LONG Comment: 2.5cm low density lseion in bodyMay 2014 Entered By: PADMA LONG Comment: question of communication with pancreatic ductMay 2014 Entered By: PADMA LONG Comment: favored to be cystic pancreatic cancerMay 2014 Entered By: PADMA LONG Comment: per abdominal CT 09/01/14, [place] PADMA LONG [facility] Dry eyes Active 742380865 NEDA SHAW Juan M [facility] Gastro-esophageal reflux disease without esophagitis ( SNOMED CT 815996525) Active 140185858 [facility] History of malignant neoplasm of lung Active 962983879 CHAPO BARRETO [facility] Hyperlipidemia (SNOMED CT 72633674) Active 84590399 PAMELA RAMSEY [facility] Lung mass Active 337646071 September 08, 2014 E ntered By: PADMA LONG Comment: 4.5 cm mass, post. segment right upper lobe.September 08, 2014 Entered By: PADMA LONG Comment: mild adenopathy in mediastinum and bilat. [email or web address] Entered By: PADMA LONG Comment: most likely related to lung cancerMa2014 Entered By: PADMA LONG Comment: per ct angio of chest with contrast 09/01/14,via [place], [place]sSep 23, 2014 Entered By: PADMA LONG Comment: per path report- mod. differentiated bronchogenic adenoca. 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 Active 87201961 [facility] Obesity Active 911716252 SONG BULLOCK [facility] Obstructive sleep apnea syndrome (SNOMED CT 29150084) Active 042310 015 PHILIPPE DOUGLASS Juan M [facility] Pancreatic cyst Active 60527104 JAYLENE GUEVARA [facility] Papilloma of right eyelid Active 255480426491415 NEDA SHAW [facility] Polyp of colon Active 74220300 Jan 23 Entered By: PADMA LONG Comment: c-scope 01/17/16, multiple benign colonic polypsJun 28, 2017 Entered By: PADMA LONG Comment: c-scope,06/25/17,[facility], three benign polyps- sigmoid colon, transverse colon,cecum. see path report cprs BRIANSHARRONNicol THAYER [facility] Pulmonary emphysema Active 48968869 0 BRIANA LESLYE [facility] Sensorineural hearing loss, bilateral Active 340668593 CHASTITY JEAN [facility] Snoring Active 36384674 SONG BULLOCK [facility] Type 2 diabetes mellitus without complication Active 372506298 NEDA SHAW [facility] Environmental Allergies (ICD-9-CM 477.9) Inactive 477.9 Dec 18, 2017 PADMA LONG [facility] External hemorrhoids without mention of complication (ICD-9- CM 455.3) Inactive 455.3 Dec 18, 2017 PADMA LONG [facility] Impotence of organic origin (ICD-9-CM 607.84) Inactive 607.84 Dec 18, 2017 PADMA LONG [facility] Screening for Lipoid disorders (ICD-9-CM V77.91) Inactive V77.91 Jan 18, 2007 PADMA LONG [facility] Stye * (ICD-9-CM 373.11) Inactive 373.11 Dec 18, 8 Jan 18, 2007 Entered By: PADMA LONG Comment: bilat lower lids, chronic/recurrent PADMA LONG [facility] Tobacco Use Disorder, Continuous Inactive 305.1 Dec 18, 2017 Jan 18, 2007 Entered By: PADMA LONG Comment: one ppd PADMA LONG [facility] Radiology Reports: +/- 30 days of [...] the Encounter. The data comes from all [facility] facilities. Date/Time Pathology Report Provider Source [...] 11:11) Microscopic examination is performed. DIAGNOSIS: Specimen: [id number] Spec Type: SURGICAL Abdulkadir: 04/03/19 Rec: 04/03/19-1241 PATHOLOGIC DIAGNOSIS Skin lesion, right upper cheek, biopsy: 1. Seborrheic keratosis, not involving resection margins. 2. Solar elastosis. Skin lesion, right lower mid margin, biopsy: 1. Seborrheic keratosis, with tumor at tissue edge/margin, but with benign features. LL COPIES TO: KATHERINE MATT [facility] PATHOLOGIST CODES: 72562/2 at 1235 The gross and microscopic examinations and interpretation were performed at [facility] Department of Pathology, [address] [place] [id number]. Slides and paraffin blocks are on file at [facility]. =--=--=--=--=--=--=--=--=--=--=--=--=--=--=--=--=--=--=--=--=--=--=--=--=--=-- Performing Laboratory: Surgical Pathology Report Performed By: [facility] [CLIA# [id number]] [place] [address] [facility] 15 Encounter Notes: All associated encounter notes No Data Provided for This Section
--- OUTSIDE RECORDS SUMMARY | 2019-12-02 07:33 | XMS REPORT | Encounter Summary ---
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 Date/Time Encounter Type Encounter Description Reason Provider Source Mar 31, 2019 03:14 PM Outpatient Encounter COMMUNITY CARE CONSULT ARTUR BLAS [facility] IHE Encounter Template Text not used [...] 10:00 AM AMBULATORY - SURGERY ARTUR BLAS [facility] Apr 14, 2019 10:00 AM AMBULATORY - SURGERY [facility] Apr 28, 2019 11:00 AM AMBULATORY - NONE ARTUR MAYFIELD C Jun 25, 2019 11:30 AM AMBULATORY - NONE ARTUR CARRASQUILLO C Jun 25, 2019 01:15 PM AMBULATORY - MEDICINE ARTUR BLAS [facility] Jul 23, 2019 11:00 AM AMBULATORY - NONE ARTUR MAYFIELD C Jul 25, 2019 08:00 AM AMBULATORY - NONE ARTUR MAYFIELD C Aug 07, 2019 10:30 AM AMBULATORY - MEDICINE ARTUR BLAS [facility] Sep 23, 2019 11:15 AM AMBULATORY - [...] Apr 01, 2019 10:33 AM Consult Order [facility] PULMONARY-[id number] Cons Legal File Clerk's Choice [facility] Surgical Procedures: All associated to [...] Range Comment Mar 21, 2019 08:55 AM [facility] HEMOGLOBIN A1C Specimen Type: BLOOD [...] and tobacco- related health factors from the [place] facility where the Encounter took place. Current Smoking Status This section includes the most current smoking, or tobacco -related health factor, from the [place] facility where the Encounter took place. Date/Time Current Smoking Status Comment Facility Jun 26, 2018 02:13 PM VA-TOBACCO QUIT 15 YRS OR MORE PORSHA BLAS [facility] Tobacco Use History This section includes a history of the smoking, or tobacco -related health factors, that were collected on or before the date of the Encoun ter. The data comes from the [place] facility where the Encounter took place. Date/Time Smoking Status/Tobacco Use Comment [facility] Jun 26, 2018 02:13 PM VA-TOBACCO QUIT 15 YRS OR MORE P[facility]SHA [facility]AS [facility] Jun 27, 2017 01:39 PM NON-TOBACCO USER [...] to adverse reactions to drug (diso rder) [facility], [facility] 15 PLAVIX September 08, 2014 Propensity to adverse reactions to drug (diso rder) [facility], [facility] 15 Medications: VA dispensed (-15 months) and Non-VA Documented (Obtained Outside V A) Section Date Range: 1) prescriptions processed by a VA pharmacy in the last 15 m [facility], and 2) all medications recorded in [...] may be a prescription from either the [place] or other providers that was filled outside the [place]. Or, it may be an over the [...] TEST BLOOD GLUCOSE 50 Dec 19, 2019 [id number] September 04, 2019 PAMELA RAMSEY GUILLERMO ACCU-CHEK CHARLES PLUS (GLUCOSE) TEST STRIP Discontinued USE 1 STRIP FOR TESTING TWO TIMES PER WEEK - DIRECTED TO TEST BLOOD GLUCOSE 50 Jul 25, 2019 [id number] Nov 12, 2018 PAMELA RAMSEY [facility] ALBUTEROL SO4 90MCG/ACTUAT (CFC-F) INHL,ORAL,6.7GM Active INHALE 2 PUFFS BY ORAL INHALATION EVERY 4 HOURS NEEDED FOR BREATHING. SHAKE WELL. RINSE MOUTHPIECE FREQUENTLY TO PREVENT CLOGGING. USE NEEDED FOR SHORTNESS OF AIR/WHEEZING FOR BREATHING. SHAKE WELL. RINSE MOUTHPIECE FREQUENTLY TO PREVENT CLOGGING. USE NEEDED FOR SHORTNESS OF AIR/WHEEZING 1 Dec 19, 2019 [id number] September 04, 2019 PAMELA RAMSEY CB ALCOHOL PREP PAD Active USE 1 PAD ON SKIN BIW TO CLEAN AND DISINFECT THE SKIN 200 Sep 29, 2020 [id number] Sep 30, 2019 CHUCHO,[facility]ICIO [facility] ALCOHOL PREP PAD Discontinued USE 1 PAD ON SKIN BI W TO CLEAN AND DISINFECT THE SKIN 200 Dec 19, 2019 [id number] Jun 06, 2019 PAMELA RAMSEY CB ALCOHOL PREP PAD Discontinued USE 1 PAD ON SKIN BI W TO CLEAN AND DISINFECT THE SKIN 200 Jul 25, 2019 [id number] Nov 12, 2018 PAMELA RAMSEY [facility] ASCORBIC ACID 250MG TAB Non-VA TAKE ONE TABLET BY MOUTH ONCE A DAY Non-VA Documented by: SHANIQUA SCHMIDT nted at: [facility] ASPIRIN 25MG/DIPYRIDAMOLE 200MG CAP,SA Active T CHAPIN 1 CAPSULE BY MOUTH TWO TIMES A DAY - SWALLOW WHOLE. DO NOT CRUSH OR CHEW. FOR RECURRENT TIA/STROKE 180 Dec 19, 2019 [id number] Dec 20, 2018 PAMELA RAMSEY [facility] ASPIRIN 25MG/DIPYRIDAMOLE 200MG CAP,SA Discontinued T CHAPIN 1 CAPSULE BY MOUTH TWO TIMES A DAY - SWALLOW WHOLE. DO NOT CRUSH OR CHEW. FOR RECURRENT TIA/STROKE 180 Feb 06, 2019 [id number] Sep 28, 2018 ZACHARY GRECO [facility] ASPIRIN 81MG TAB,EC Non- VA TAKE ONE TABLET BY MOUTH ONCE A DAY Non-VA Documented by: PADMA LONG nted at: [facility] ATORVASTATIN CA 80MG TAB Active TAKE ONE TABLET BY MOUTH AT BEDTIME FOR CHOLESTEROL - REPORT ANY UNEXPLAINED MUSCLE PAIN/WEAKNESS TO YOUR PROVIDER 90 Dec 19, 2019 [id number] September 04, 2019 PAMELA RAMSEY [facility] ATORVASTATIN CA 80MG TAB Discontinued TAKE ONE TABLET BY MOUTH AT BEDTIME FOR CHOLESTEROL - REPORT ANY UNEXPLAINED MUSCLE PAIN/WEAKNESS TO YOUR PROVIDER 90 Dec 20, 2018 [id number] Nov 12, 2018 PAMELA RAMSEY [facility] BUDESONIDE 160MCG/FORMOTEROL FUM 4.5MCG/SPRAY INHL,ORAL,10.2 GM Active INHALE 2 PUFFS BY MOUTH TWO TIMES A DAY FOR BREATHING. SHAKE WELL. RINSE MOUTH AND SPIT AFTER EACH USE. 3 Apr 24, 2020 [id number] August 22, 2019 LISSA OATES [facility] CALCIUM/VITAMIN D TAB No n-VA TAKE BY MOUTH ONCE A DAY Non-V A Documented by: PADMA LONG nted at: [facility] CARBOXYMETHYLCELLULOSE NA 0.5% SOLN,OPH Active INSTILL ONE DROP IN BOTH EYES FOUR TIMES A DAY FOR DRY EYES 15 Feb 01, 2020 [id number] September 03 0 [facility] DICLOFENAC NA 1% GEL,TOP Discontinued APPLY 2 GRAMS A FFECTED AREA TWO TIMES A DAY NEEDED FOR PAIN AND INFLAMMATION. DO NOT EXCEED 16GM DAILY TO ANY AFFECTED JOINT OF LOWER EXTREMITIES. DO NOT EXCEED 8GM DAILY TO ANY AFFECTED JOINT OF UPPER EXTREMITES. DO NOT EXCEED TOTAL DOSE OF 32GM DAILY FOR ALL JOINTS. 100 Oct 31, 2018 [id number] Oct 06, 2018 ANAYELI KIRKPATRICK [facility] DICLOFENAC NA 1% GEL,TOP APPLY 2 GRAMS A FFECTED AREA TWO TIMES A DAY NEEDED FOR PAIN AND INFLAMMATION. DO NOT EXCEED 16GM DAILY TO ANY AFFECTED JOINT OF LOWER EXTREMITIES. DO NOT EXCEED 8GM DAILY TO ANY AFFECTED JOINT OF UPPER EXTREMITES. DO NOT EXCEED TOTAL DOSE OF 32GM DAILY FOR ALL JOINTS. 100 Jan 17, 2019 [id number] Dec 20, 2018 PAMELA RAMSEY FLUTICASONE PROPIONATE 50MCG/SPRAY SOLN,NASAL,16GM Active INSTILL 1 SPRAY IN EACH NOSTRIL ONCE A DAY SHAKE GENTLY BEFORE USE! - MUST BE USED DIRECTED FOR 3 WEEKS TO PROVIDE BENEFIT. * NO EARLY REFILLS * 1UNIT = 30DAYS AT 4 PF/DAY OR 60DAYS AT 2PF/DAY 2 Dec 19, 2019 [id number] August 26, 2019 PAMELA RAMSEY KETOTIFEN 0.025% SOLN,OPH Active INSTILL 1 DROP IN BOTH EYES TWO TIMES A DAY FOR RELIEF OF ALLERGY SYMPTOMS IN EYE(S) Feb 01, 2020 [id number] September 04, 2019 [facility] LANCET,SOFTCLIX Active USE LANCET BIW FOR TESTING BL OOD GLUCOSE DIRECTED Sep 29, 2020 [id number] Sep 30, 2019 MAURICIO RANKIN LANCET,SOFTCLIX Discontinued USE LANCET BIW FO R TESTING BLOOD GLUCOSE DIRECTED Dec 19, 2019 [id number] Jun 06, 2019 [facility] RAMSE[facility] LANCET,SOFTCLIX Discontinued USE LANCET BIW FO R TESTING BLOOD GLUCOSE DIRECTED 100 Jul 25, 2019 [id number] Nov 12, 2018 PAMELA RAMSEY LISINOPRIL 40MG TAB Non- VA TAKE ONE-HALF TABLET BY MOUTH EVERY MORNING Non-VA Documented by: PAMELA RAMSEY nted at: [facility] LORATADINE/PSEUDOEPHEDRINE TAB,SA Non-VA TAKE BY MOUTH No n-VA Documented by: JUAN LANG Docume nted at: ARTUR BLAS [facility] MAGNESIUM OXIDE 400MG TAB Non-VA TAKE ONE [...] ACID (REPLACES ACIPHEX) 180 Dec 19, 2019 [id number] August 26, 2019 PAMELA RAMSEY POLYETHYLENE GLYCOL [...] Non-VA Documented by: KATHERINE MATT nted at: [facility] PREGABALIN 150MG CAP,ORAL Non-VA TAKE 1 CAPSULE BY MOUTH TWO TIMES A DAY Non-VA Docume nted by: PAMELA RAMSEY nted at: [facility] SEMAGLUTIDE INJ,SOLN Non -VA INJECT SUBCUTANEOUSLY EVERY WEEK Non-VA Documented by: ANAYELI KIRKPATRICK nted at: ARTUR SIMSMila [facility] TERBINAFINE HCL 1% CREAM,TOP Active APPLY LIGHT LY TO AFFECTED AREA TWO TIMES A DAY FOR INFECTION 90 Sep 23, 2020 [id number] Sep 24, 2019 ADRIEL HERNANDEZ CB[facility] UREA 20% CREAM,TOP Active APPLY LIGHTLY (20%) TO AFFECTED AREA TWO TIMES A DAY NEEDED TO PROMOTE HEALING,RUB IN UNTIL COMPLETELY ABSORBED*FOR TOPICAL USE ONLY* APPLY TO BOTH FEET DIRECTED. 90 Sep 25, 2020 [id number] Sep 26, 2019 ADRIEL HERNANDEZ Problems (Conditions): [...] Alcohol intake above recommended sensible limits Active 924415985 PADMA LONG [facility] Allergic conjunctivitis Active 653463859 ONARGANEDA [facility] Bilateral senile combined form cataracts of eyes Active 87985232545 9108 ONARGAFACUNDONEDA Luda [facility] Bilateral tinnitus Active [id number] CHASTITY JEAN [facility] Coronary arteriosclerosis Active 28976819 September 08, 2014 Entered By: PADMA LONG Comment: hx of ptca to RCA several yrs. agoSeptember 08, 2014 Entered By: PADMA LONG Comment: heart cath 09/01/14, neg. / previous stent to RCA,, via abida meneses ks HATCHER, JENNEY R [facility] Diabetes mellitus Active 43013911 PAMELA RAMSEY [facility] Disorder of pancreas Active 6618304 September 08, 2014 Entered By: PADMA LONG Comment: 2.5cm low density lseion in bodyMay 2014 Entered By: PADMA LONG Comment: question of communication with pancreatic ductMa2014 Entered By: PADMA LONG Comment: favored to be cystic pancreatic cancerSeptember 08, 2014 Entered By: PADMA LONG Comment: per abdominal CT 09/01/14, via [place], k[place] PADMA LONG [facility] Dry eyes Active 022736333 NEDA SHAW [facility] Gastro-esophageal reflux disease without esophagitis ( SNOMED CT 841654188) Active 307589952 ALF GUEVARA [facility] History of malignant neoplasm of lung Active 527045018 CHAPO BARRETO [facility] Hyperlipidemia (SNOMED CT 47872965) Active 64987458 PAMELA RAMSEY [facility] Lung mass Active 947641025 September 08, 2014 E ntered By: PADMA LONG Comment: 4.5 cm mass, post. segment right upper lobe.September 08, 2014 Entered By: PADMA LONG Comment: mild adenopathy in mediastinum and bilat. hilaMay 2014 Entered By: PADMA LONG Comment: most likely related to lung cancerMa2014 Entered By: PADMA LONG Comment: per ct angio of chest with contrast 09/01/14,via [place], [place]Jun 2014 Entered By: PADMA LONG Comment: per path report- mod. differentiated bronchogenic adenoca. 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 Active 21337464 KATHERINE MATT Juan M [facility] Obesity Active 413156374 SONG BULLOCK Juan M [facility] Obstructive sleep apnea syndrome (SNOMED CT 98634207) Active 749228 015 PHILIPPE DOUGLASS [facility] Pancreatic cyst Active 49636410 JAYLENE GUEVARA [facility] Papilloma of right eyelid Active 627309602356915 NEDA SHAW Juan M [facility] Polyp of colon Active 34150275 Jan 23 16 Entered By: PADMA LONG Comment: c-scope 01/17/16, multiple benign colonic polypsJun 28, 2017 Entered By: PADMA LONG Comment: c-scope,06/25/17,[facility], three benign polyps- sigmoid colon, transverse colon,cecum. see path report cprs SHARRON TORRES MO THAYER [facility] Pulmonary emphysema Active 09133741 0 BRIANA LESLYE [facility] Sensorineural hearing loss, bilateral Active 627055528 CHASTITY JEAN [facility] Snoring Active 18531107 Jayshree BULLOCKUBAIR [facility] Type 2 diabetes mellitus without complication Active 023909861 COLINNEDA Luda SIDDIQUI [facility] Environmental Allergies (ICD-9-CM 477.9) Inactive 477.9 Dec 18, 2017 PADMA LONG [facility] External hemorrhoids without mention of complication (ICD-9- CM 455.3) Inactive 455.3 Dec 18, 2017 [facility] Impotence of organic origin (ICD-9-CM 607.84) Inactive 607.84 Dec 18, 2017 [facility] Screening for Lipoid disorders (ICD-9-CM V77.91) Inactive V77.91 Jan 18, 2007 PADMA LONG [facility] Stye * (ICD-9-CM 373.11) Inactive 373.11 Dec 18 8 Jan 18, 2007 Entered By: PADMA LONG Comment: bilat lower lids, chronic/recurrent PADMA LONG [facility] Tobacco Use Disorder, Continuous Inactive 305.1 Dec 18, 2017 Jan 18, 2007 Entered By: PADMA LONG Comment: one ppd PADMA LONG [facility] Radiology Reports: +/- 30 days of the [...] 11:11) Microscopic examination is performed. DIAGNOSIS: Specimen: [id number] Spec Type: SURGICAL Abdulkadir: 04/03/19 Rec: 04/03/19-1241 PATHOLOGIC DIAGNOSIS Skin lesion, right upper cheek, biopsy: 1. Seborrheic keratosis, not involving resection margins. 2. Solar elastosis. Skin lesion, right lower mid margin, biopsy: 1. Seborrheic keratosis, with tumor at tissue edge/margin, but with benign features. LL COPIES TO: M[facility]ATHERINE [facility] PATHOLOGIST CODES: 64137/2 at 1235 The gross and microscopic examinations and interpretation were performed at Department of Pathology, [address] [place] [address]. Slides and paraffin blocks are on file at . =--=--=--=--=--=--=--=--=--=--=--=--=--=--=--=--=--=--=--=--=--=--=--=--=--=-- Performing Laboratory: Surgical Pathology Report Performed By: [facility] [CLIA# [id number]] [address] [place] [address] EDWARD LANGFORD [facility] 15 Encounter Notes: All associated encounter notes This section contains the clinical notes associated to the Encounter. Date/Time Encounter Note(s) Provider Source Mar 31, 2019 03:14 PM NONVA NOTE: LOCAL TITLE: COMMUNITY CARE-COORDINATION NOTE AK STANDARD TITLE: NONVA NOTE DATE OF NOTE: MAR 31, 2019@15:14 ENTRY DATE: MAR 31, 2019@15:15:06 AUTHOR: VALERIA GROVE EXP COSIGNER: URGENCY: STATUS: COMPLETED COMMUNITY CARE-COORDINATION NOTE [place] Has ADDENDA [place] is needing a consult placed for Pulmonary in his communuty. [place] is currently seeing Dr. Linwood Friedman at [facility]. can be reached at [phone]. /gisell/ VALERIA GROVE msa Signed: 03/31/2019 15:17 Receipt Acknowledged By: 04/01/2019 08:41 /gisell/ SHANIQUA DOMINGUEZ RN 03/31/2019 15:51 /es/ PAMELA Cortes APRN 04/01/2019 ADDENDUM STATUS: COMPLETED [...] to placing consult. Will alert [facility] team. /es/ SHANIQUA SCHMIDT RN Signed: 04/01/2019 08:45 Receipt Acknowledged By: 04/01/2019 09:52 /es/ [place] DESHPANDE RN * AWAITING SIGNATURE * VALERIA GROVE 04/01/2019 ADDENDUM STATUS: COMPLETED RFS for pulmonary office visit and continuation of care of COPD was faxed by Dr. Linwood Friedman's office on 03/31/2019 at 1431 and received in my personal RightFax folder on 04/01/2019. [place] has appointment on 04/01/2019. This will be sent via secure email to members of care team at [facility] [address] Please [address] [facility] Pulmonary consult if in agreement. Thank you. /gisell/ [place] PALOMINO RN Signed: 04/01/2019 09:43 Receipt Acknowledged By: * AWAITING SIGNATURE * SHANIQUA SCHMIDT JANET F [facility]
--- OUTSIDE RECORDS SUMMARY | 2019-12-02 07:33 | XMS REPORT | Encounter Summary ---
Author Author Department of [facility] HERBERTH kline Organization Department of [facility] Affai Address [address] [place] [address] Phone Unavailable Care Team Providers Care Windows Software Developer Name Role Phone ADRIEL HERNANDEZ PCP Unavailable Insurance Providers: All historical and current No Data Provided for This Section Selected Encounter This section includes the information on record at PA for the Encounter. Date/Time Encounter Type Encounter Description Reason Provider Source Apr 03, 2019 10:01 AM Outpatient Encounter EVENT (HISTORICAL) [facility] 15 IHE Encounter Template Text not [...] 2019 10:00 AM AMBULATORY - SURGERY [facility] Apr 28, 2019 11:00 AM AMBULATORY - NONE ARTUR MAYFIELD C Jun 25, 2019 11:30 AM AMBULATORY - NONE ARTUR CARRASQUILLO C Jun 25, 2019 01:15 PM AMBULATORY - MEDICINE ARTUR BLAS [facility] [place] [place] Jul 23, 2019 11:00 AM AMBULATORY - NONE ARTUR MAYFIELD C Jul 25, 2019 08:00 AM AMBULATORY - NONE ARTUR MAYFIELD C Aug 07, 2019 10:30 AM AMBULATORY - MEDICINE ARTUR BLAS V [facility] [place] [place] Sep 23, 2019 11:15 AM AMBULATORY - NONE [facility] Sep 23, 2019 11:30 AM AMBULATORY - MEDICINE [facility] Active, Pending, and Scheduled Orders This [...] data comes from all PA treatment facilities. Test Date/Time Test Type Test Details Facility Name Apr 01, 2019 10:33 AM Consult Order [facility][id number] Cons [employer] Operator's Choice [facility] Surgical Procedures: All associated to [...] Adverse Reactions (ADR s) on record with PA for the patient. The data comes from a ll PA treatment facilities. It does not list Allergies/ADRs that were removed or entered in error. Some allergies/ADRs may be reported in t he Immunization section. Allergen Event Date Event Type Reaction(s) Severity Source [place] September 08, 2014 Propensity to adverse reactions to drug (diso rder) [facility] 15 [place]IX September 08, 2014 Propensity to adverse reactions to drug (diso rder) [facility] 15 Medications: VA dispensed (-15 months) and Non-VA Documented (Obtained Outside V A) Section Date Range: 1) prescriptions processed by a VA pharmacy in the last 15 m [facility], and 2) all medications recorded in the PA medical record as "non-VA medic ations". Pharmacy terms refer to PA pharmacy's work on prescriptions. VA patient s [...] TEST BLOOD GLUCOSE 50 Dec 19, 2019 [id number] September 04, 2019 PAMELA RAMSEY GUILLERMO ACCU-CHEK CHARLES PLUS (GLUCOSE) TEST STRIP Discontinued USE 1 STRIP FOR TESTING TWO TIMES PER WEEK - DIRECTED TO TEST BLOOD GLUCOSE 50 Jul 25, 2019 [id number] Nov 12, 2018 PAMELA RAMSEY ALBUTEROL SO4 90MCG/ACTUAT (CFC-F) INHL,ORAL,6.7GM Active INHALE 2 PUFFS BY ORAL INHALATION EVERY 4 HOURS NEEDED FOR BREATHING. SHAKE WELL. RINSE MOUTHPIECE FREQUENTLY TO PREVENT CLOGGING. USE NEEDED FOR SHORTNESS OF AIR/WHEEZING FOR BREATHING. SHAKE WELL. RINSE MOUTHPIECE FREQUENTLY TO PREVENT CLOGGING. USE NEEDED FOR SHORTNESS OF AIR/WHEEZING 1 Dec 19, 2019 [id number] September 04, 2019 PAMELA RAMSEY CBGUILLERMO ALCOHOL PREP PAD Active USE 1 PAD ON SKIN BIW TO CLEAN AND DISINFECT THE SKIN 200 Sep 29, 2020 [id number] Sep 30, 2019 MAURICIO RANKIN [facility] ALCOHOL PREP PAD Discontinued USE 1 PAD ON SKIN BI W TO CLEAN AND DISINFECT THE SKIN 200 Dec 19, 2019 [id number] Jun 06, 2019 PAMELA RAMSEY CBGUILLERMO ALCOHOL PREP PAD Discontinued USE 1 PAD ON SKIN BI W TO CLEAN AND DISINFECT THE SKIN 200 Jul 25, 2019 [id number] Nov 12, 2018 PAMELA RAMSEY ASCORBIC ACID 250MG TAB Non-VA TAKE ONE TABLET BY MOUTH ONCE A DAY Non-VA Documented by: SHANIQUA SCHMIDT nted at: [facility] ASPIRIN 25MG/DIPYRIDAMOLE 200MG CAP,SA Active T CHAPIN 1 CAPSULE BY MOUTH TWO TIMES A DAY - SWALLOW WHOLE. DO NOT CRUSH OR CHEW. FOR RECURRENT TIA/STROKE 180 Dec 19, 2019 [id number] Dec 20, 2018 PAMELA RAMSEY [facility] ASPIRIN 25MG/DIPYRIDAMOLE 200MG CAP,SA Discontinued T CHAPIN 1 CAPSULE BY MOUTH TWO TIMES A DAY - SWALLOW WHOLE. DO NOT CRUSH OR CHEW. FOR RECURRENT TIA/STROKE 180 Feb 06, 2019 [id number] Sep 28, 2018 ZACHARY GRECO [facility] ASPIRIN 81MG TAB,EC Non- VA TAKE ONE TABLET BY MOUTH ONCE A DAY Non-VA Documented by: PADMA LONG nted at: [facility] ATORVASTATIN CA 80MG TAB Active TAKE ONE TABLET BY MOUTH AT BEDTIME FOR CHOLESTEROL - REPORT ANY UNEXPLAINED MUSCLE PAIN/WEAKNESS TO YOUR PROVIDER 90 Dec 19, 2019 [id number] September 04, 2019 PAMELA RAMSEYONS [place] ATORVASTATIN CA 80MG TAB Discontinued TAKE ONE TABLET BY MOUTH AT BEDTIME FOR CHOLESTEROL - REPORT ANY UNEXPLAINED MUSCLE PAIN/WEAKNESS TO YOUR PROVIDER 90 Dec 20, 2018 [id number] Nov 12, 2018 PAMELA RAMSEY BUDESONIDE 160MCG/FORMOTEROL FUM 4.5MCG/SPRAY INHL,ORAL,10.2 GM Active INHALE 2 PUFFS BY MOUTH TWO TIMES A DAY FOR BREATHING. SHAKE WELL. RINSE MOUTH AND SPIT AFTER EACH USE. 3 Apr 24, 2020 [id number] August 22, 2019 LISSA OATES [facility] CALCIUM/VITAMIN D TAB No n-VA TAKE BY MOUTH ONCE A DAY Non-V A Documented by: PADMA LONG nted at: [facility] CARBOXYMETHYLCELLULOSE NA 0.5% SOLN,OPH Active INSTILL ONE DROP IN BOTH EYES FOUR TIMES A DAY FOR DRY EYES 15 Feb 01, 2020 [id number] September [address] [facility] DICLOFENAC NA 1% GEL,TOP Discontinued APPLY 2 GRAMS A FFECTED AREA TWO TIMES A DAY NEEDED FOR PAIN AND INFLAMMATION. DO NOT EXCEED 16GM DAILY TO ANY AFFECTED JOINT OF LOWER EXTREMITIES. DO NOT EXCEED 8GM DAILY TO ANY AFFECTED JOINT OF UPPER EXTREMITES. DO NOT EXCEED TOTAL DOSE OF 32GM DAILY FOR ALL JOINTS. 100 Oct 31, 2018 [id number] Oct 06, 2018 ANAYELI KIR[facility]ATRICK [facility] [...] FOR ALL JOINTS. 100 Jan 17, 2019 [id number] Dec 20, 2018 PAMELA RAMSEY FLUTICASONE PROPIONATE 50MCG/SPRAY SOLN,NASAL,16GM Active INSTILL 1 SPRAY IN EACH NOSTRIL ONCE A DAY SHAKE GENTLY BEFORE USE! - MUST BE USED DIRECTED FOR 3 WEEKS TO PROVIDE BENEFIT. * NO EARLY REFILLS * 1UNIT = 30DAYS AT 4 PF/DAY OR 60DAYS AT 2PF/DAY 2 Dec 19, 2019 [id number] August 26, 2019 PAMELA RAMSEY KETOTIFEN 0.025% SOLN,OPH Active INSTILL 1 DROP IN BOTH EYES TWO TIMES A DAY FOR RELIEF OF ALLERGY SYMPTOMS IN EYE(S) 10 Feb 01, 2020 [id number] September 04, [address] [facility] LANCET,SOFTCLIX Active USE LANCET BIW FOR TESTING BL OOD GLUCOSE DIRECTED 100 Sep 29, 2020 [id number] Sep 30, 2019 MAURICIO RANKIN LANCET,SOFTCLIX Discontinued USE LANCET BIW FO R TESTING BLOOD GLUCOSE DIRECTED 100 Dec 19, 2019 [id number] Jun 06, 2019 PAMELA RAMSEY LANCET,SOFTCLIX Discontinued USE LANCET BIW FO R TESTING BLOOD GLUCOSE DIRECTED Jul 25, 2019 [id number] Nov 12, 2018 PAMELA RAMSEY LISINOPRIL 40MG TAB Non- VA TAKE ONE-HALF TABLET BY MOUTH EVERY MORNING Non-VA Documented by: PAMELA RAMSEY Docume nted at: [facility] LORATADINE/PSEUDOEPHEDRINE TAB,SA Non-VA TAKE BY MOUTH No n-VA Documented by: JUAN LANGume nted at: ARTUR BLAS [facility] MAGNESIUM OXIDE 400MG TAB Non-VA TAKE ONE [...] ACID (REPLACES ACIPHEX) 180 Dec 19, 2019 [id number] August 26, 2019 PAMELA RAMSEY POLYETHYLENE GLYCOL [...] by: KATHERINE MATT Docume nted at: [facility] PREGABALIN 150MG CAP,ORAL Non-VA TAKE 1 CAPSULE BY MOUTH TWO TIMES A DAY Non-VA Docume nted by: PAMELA RAMSEY Docume nted at: [facility] SEMAGLUTIDE INJ,SOLN Non -VA INJECT SUBCUTANEOUSLY EVERY WEEK Non-VA Documented by: ANAYELI KIRKPATRICK Docume nted at: [facility] TERBINAFINE HCL 1% CREAM,TOP Active APPLY LIGHT LY TO AFFECTED AREA TWO TIMES A DAY FOR INFECTION Sep 23, 2020 [id number] Sep 24, 2019 ADRIEL HERNANDEZ UREA 20% CREAM,TOP Active APPLY LIGHTLY (20%) TO AFFECTED AREA TWO TIMES A DAY NEEDED TO PROMOTE HEALING,RUB IN UNTIL COMPLETELY ABSORBED*FOR TOPICAL USE ONLY* APPLY TO BOTH FEET DIRECTED. Sep 25, 2020 [id number] Sep 26, 2019 ADRIEL HERNANDEZ Problems (Conditions): [...] Alcohol intake above recommended sensible limits Active 532179935 PADMA LONG [facility] Allergic conjunctivitis Active 411863329 NEDA SHAW [facility] Bilateral senile combined form cataracts of eyes Active 44830110770 9108 NEDA SHAW [facility] Bilateral tinnitus Active [id number] [facility] Coronary arteriosclerosis Active 89040762 September 08, 2014 Entered By: PADMA LONG Comment: hx of ptca to RCA several yrs. agoSeptember 08, 2014 Entered By: PADMA LONG Comment: heart cath 09/01/14, neg. / previous stent to RCA,, via abida meneseswv KALA JONES [facility] Diabetes mellitus Active 53030506 PAMELA RAMSEY [facility] Disorder of pancreas Active 3798899 September 08, 2014 Entered By: PADMA LONG Comment: 2.5cm low density lseion in bodyMay 2014 Entered By: PADMA LONG Comment: question of communication with pancreatic ductMa2014 Entered By: PADMA LONG Comment: favored to be cystic pancreatic cancerSeptember 08, 2014 Entered By: PAMDA LONG Comment: per abdominal CT 09/01/14, via abida meneseswv PADMA LONG [facility] Dry eyes Active 980182464 NEDA SHAW [facility] Gastro-esophageal reflux disease without esophagitis ( SNOMED CT 219541425) Active 901460082 ALF GUEVARA [facility] History of malignant neoplasm of lung Active 448102068 CHAPO BARRETO [facility] Hyperlipidemia (SNOMED CT 76499995) Active 64783694 PAMELA RAMSEY [facility] Lung mass Active 615926823 September 08, 2014 E ntered By: PADMA [...] uncertain behavior of skin of eyelid Active 06580839 KATHERINE MATT [facility] Obesity Active 915049464 [facility] Obstructive sleep apnea syndrome (SNOMED CT 33043572) Active 632842 015 PHILIPPE DOUGLASS [facility] Pancreatic cyst Active 10266306 JAYLENE GUEVARA [facility] Papilloma of right eyelid Active [id number] NEDA SHAW [facility] Polyp of colon Active 39926180 Jan 23 Entered By: PADMA LONG Comment: c-scope 01/17/16, multiple benign colonic polypsJun 28, 2017 Entered By: PADMA LONG Comment: c-scope,06/25/17,nd-[facility], three benign polyps- sigmoid colon, transverse colon,cecum. see path report cprs SHARRON TORRES [facility] Pulmonary emphysema Active 75818456 0 BRIANA GAVIN [facility] Sensorineural hearing loss, bilateral Active 267700097 CHASTITY JEAN [facility] Snoring Active 26035468 SONG BULLOCK [facility] Type 2 diabetes mellitus without complication Active 911281599 NEDA SHAW [facility] Environmental Allergies (ICD-9-CM 477.9) Inactive 477.9 Dec 18, 2017 PADMA LONG [facility] External hemorrhoids without mention of complication (ICD-9- CM 455.3) Inactive 455.3 Dec 18, 2017 PADMA LONG [facility] Impotence of organic origin (ICD-9-CM 607.84) Inactive 607.84 Dec 18, 2017 PADMA LONG [facility] Screening for Lipoid disorders (ICD-9-CM V77.91) Inactive V77.91 Jan 18, 2007 PADMA LONG [facility] Stye * (ICD-9-CM 373.11) Inactive 373.11 [...] 11:11) Microscopic examination is performed. DIAGNOSIS: Specimen: [id number] Spec Type: SURGICAL Abdulkadir: 04/03/19 Rec: 04/03/19-1241 PATHOLOGIC DIAGNOSIS Skin lesion, right upper cheek, biopsy: 1. Seborrheic keratosis, not involving resection margins. 2. Solar elastosis. Skin lesion, right lower mid margin, biopsy: 1. Seborrheic keratosis, with tumor at tissue edge/margin, but with benign features. LL COPIES TO: KATHERINE MATT [facility] PATHOLOGIST CODES: 07879/2 at 1235 The gross and microscopic examinations and interpretation were performed at [facility] Department of Pathology, [address] [place] [id number]. Slides and paraffin blocks are on file at [facility]. =--=--=--=--=--=--=--=--=--=--=--=--=--=--=--=--=--=--=--=--=--=--=--=--=--=-- Performing Laboratory: Surgical Pathology Report Performed By: [facility] [CLIA# [id number]] [address] [place] [id number] EDWARD LANGFORD [facility] 15 Encounter Notes: All associated encounter notes No Data Provided for This Section
--- OUTSIDE RECORDS SUMMARY | 2019-12-02 07:34 | XMS REPORT | Encounter Summary ---
[facility] Address [address] [place] [address] Phone Unavailable Care Team Providers Care Dredge Hand Name Role Phone ADRIEL HERNANDEZ PCP Unavailable [...] Obstructive sleep apnea (adult) (pediatric) KARI DUPREE [facility] IHE Encounter Template Text not used by ME Assessments - Encounter Diagnoses This section includes the primary and secondary diag noses documented for the Encounter. Date/Time Primary/Secondary Diagnosis Diagnosis Name Provider Source Mar 25, 2019 10:55 AM PRIMARY Obstructive sleep apnea (a dult) (pediatric) DELMERKIMBERLY [facility] Plan of Treatment: Future Appointments (+ [...] appointme nts. The data comes from all [facility]. Appointment Date/Time Appointment Type Appointment Facili ty Name Mar 26, 2019 10:00 AM AMBULATORY - NONE [facility] Apr 03, 2019 10:00 AM AMBULATORY - SURGERY [facility] Apr 14, 2019 10:00 AM AMBULATORY - SURGERY [facility] Apr 28, 2019 11:00 AM AMBULATORY - NONE [facility] Jun 25, 2019 11:30 AM AMBULATORY - NONE [facility] Jun 25, 2019 01:15 PM AMBULATORY - MEDICINE [facility] Jul 23, 2019 11:00 AM AMBULATORY - NONE [facility] Jul 25, 2019 08:00 AM AMBULATORY - NONE [facility] Aug 07, 2019 10:30 AM AMBULATORY - MEDICINE [facility] Active, Pending, and Scheduled Orders This section [...] the Encounter. The data comes from all [facility]. Test Date/Time Test Type Test Details Facility Name Apr 01, 2019 10:33 AM Consult Order [id number] Cons Biological Photographer's Choice [facility] Surgical Procedures: All associated to the [...] Range Comment Mar 21, 2019 08:55 AM [facility] HEMOGLOBIN A1C Specimen Type: BLOOD No comment [...] took place. Date/Time Smoking Status/Tobacco Use Comment [facility] it Nov 23, 2017 09:51 AM CURRENT [...] the patient. The data comes from a [facility] treatment facilities. It does not list Allergies/ADRs that were removed or entered in error. Some allergies/ADRs may be reported in t he Immunization section. Allergen Event Date Event Type Reaction(s) Severity Source BRILINTA September 08, 2014 Propensity to adverse reactions to drug (diso rder) [facility] PLAV[place] September 08, 2014 Propensity to adverse reactions to drug (diso rder) [facility] Medications: [facility] dispensed [...] TEST BLOOD GLUCOSE 50 Dec 19, 2019 [id number] September 04, 2019 PAMELA RAMSEY CBGUILLERMO ACCU-CHEK CHARLES PLUS (GLUCOSE) TEST STRIP Discontinued USE 1 STRIP FOR TESTING TWO TIMES PER WEEK - DIRECTED TO TEST BLOOD GLUCOSE 50 Jul 25, 2019 [id number] Nov 12, 2018 PAMELA RAMSEY ALBUTEROL SO4 90MCG/ACTUAT (CFC-F) INHL,ORAL,6.7GM Active INHALE 2 PUFFS BY ORAL INHALATION EVERY 4 HOURS NEEDED FOR BREATHING. SHAKE WELL. RINSE MOUTHPIECE FREQUENTLY TO PREVENT CLOGGING. USE NEEDED FOR SHORTNESS OF AIR/WHEEZING FOR BREATHING. SHAKE WELL. RINSE MOUTHPIECE FREQUENTLY TO PREVENT CLOGGING. USE NEEDED FOR SHORTNESS OF AIR/WHEEZING Dec 19, 2019 [id number] September 04, 2019 PAMELA RAMSEY ALCOHOL PREP PAD Active USE 1 PAD ON SKIN BIW TO CLEAN AND DISINFECT THE SKIN 200 Sep 29, 2020 [id number] Sep 30, 2019 MAURICIO RANKIN [facility] ALCOHOL PREP PAD Discontinued USE 1 PAD ON SKIN BI W TO CLEAN AND DISINFECT THE SKIN 200 Dec 19, 2019 [id number] Jun 06, 2019 PAMELA RAMSEY [facility] ALCOHOL PREP PAD Discontinued USE 1 PAD ON SKIN BI W TO CLEAN AND DISINFECT THE SKIN 200 Jul 25, 2019 [id number] Nov 12, 2018 PAMELA RAMSEY [facility] ASCORBIC ACID 250MG TAB Non-VA TAKE ONE TABLET BY MOUTH ONCE A DAY Non-VA Documented by: SHANIQUA SCHMIDT nted at: [facility] ASPIRIN 25MG/DIPYRIDAMOLE 200MG CAP,SA Active T CHAPIN 1 CAPSULE BY MOUTH TWO TIMES A DAY - SWALLOW WHOLE. DO NOT CRUSH OR CHEW. FOR RECURRENT TIA/STROKE 180 Dec 19, 2019 [id number] Dec 20, 2018 PAMELA RAMSEY [facility] ASPIRIN 25MG/DIPYRIDAMOLE 200MG CAP,SA Discontinued T CHAPIN 1 CAPSULE BY MOUTH TWO TIMES A DAY - SWALLOW WHOLE. DO NOT CRUSH OR CHEW. FOR RECURRENT TIA/STROKE 180 Feb 06, 2019 [id number] Sep 28, 2018 ZACHARY GRECO [facility] ASPIRIN 81MG TAB,EC Non- [facility] TAKE ONE TABLET BY MOUTH ONCE A DAY Non-VA Documented by: PADMA LONG nted at: [facility] ATORVASTATIN CA 80MG TAB Active TAKE ONE TABLET BY MOUTH AT BEDTIME FOR CHOLESTEROL - REPORT ANY UNEXPLAINED MUSCLE PAIN/WEAKNESS TO YOUR PROVIDER 90 Dec 19, 2019 [id number] September 04, 2019 PAMELA RAMSEY ATORVASTATIN CA 80MG TAB Discontinued TAKE ONE TABLET BY MOUTH AT BEDTIME FOR CHOLESTEROL - REPORT ANY UNEXPLAINED MUSCLE PAIN/WEAKNESS TO YOUR PROVIDER 90 Dec 20, 2018 [id number] Nov 12, 2018 PAMELA RAMSEY [facility] BUDESONIDE 160MCG/FORMOTEROL FUM 4.5MCG/SPRAY INHL,ORAL,10.2 GM Active INHALE 2 PUFFS BY MOUTH TWO TIMES A DAY FOR BREATHING. SHAKE WELL. RINSE MOUTH AND SPIT AFTER EACH USE. 3 Apr 24, 2020 [id number] August 22, 2019 LISSA OATES [facility] CALCIUM/VITAMIN D TAB No n-VA TAKE BY MOUTH ONCE A DAY Non-V A Documented by: PADMA LONG nted at: [facility] CARBOXYMETHYLCELLULOSE NA 0.5% SOLN,OPH Active INSTILL ONE DROP IN BOTH EYES FOUR TIMES A DAY FOR DRY EYES Feb 01, 2020 [id number] September 03 0 [facility] DICLOFENAC NA 1% GEL,TOP Discontinued APPLY 2 GRAMS A FFECTED AREA TWO TIMES A DAY NEEDED FOR PAIN AND INFLAMMATION. DO NOT EXCEED 16GM DAILY TO ANY AFFECTED JOINT OF LOWER EXTREMITIES. DO NOT EXCEED 8GM DAILY TO ANY AFFECTED JOINT OF UPPER EXTREMITES. DO NOT EXCEED TOTAL DOSE OF 32GM DAILY FOR ALL JOINTS. 100 Oct 31, 2018 [id number] Oct 06, 2018 ANAYELI KIRKPATRICK [facility] DICLOFENAC NA 1% GEL,TOP APPLY 2 GRAMS A FFECTED AREA TWO TIMES A DAY NEEDED FOR PAIN AND INFLAMMATION. DO NOT EXCEED 16GM DAILY TO ANY AFFECTED JOINT OF LOWER EXTREMITIES. DO NOT EXCEED 8GM DAILY TO ANY AFFECTED JOINT OF UPPER EXTREMITES. DO NOT EXCEED TOTAL DOSE OF 32GM DAILY FOR ALL JOINTS. 100 Jan 17, 2019 [id number] Dec 20, 2018 PAMELA RAMSEY FLUTICASONE PROPIONATE 50MCG/SPRAY SOLN,NASAL,16GM Active INSTILL 1 SPRAY IN EACH NOSTRIL ONCE A DAY SHAKE GENTLY BEFORE USE! - MUST BE USED DIRECTED FOR 3 WEEKS TO PROVIDE BENEFIT. * NO EARLY REFILLS * 1UNIT = 30DAYS AT 4 PF/DAY OR 60DAYS AT 2PF/DAY 2 Dec 19, 2019 [id number] August 26, 2019 PAMELA RAMSEY [facility] KETOTIFEN 0.025% SOLN,OPH Active INSTILL 1 DROP IN BOTH EYES TWO TIMES A DAY FOR RELIEF OF ALLERGY SYMPTOMS IN EYE(S) 10 Feb 01, 2020 [id number] September 04, 2019 [facility] LANCET,SOFTCLIX Active USE LANCET BIW FOR TESTING BL OOD GLUCOSE DIRECTED 100 Sep 29, 2020 [id number] Sep 30, 2019 MAURICIO RANKIN [facility] LANCET,SOFTCLIX Discontinued USE LANCET BIW FO R TESTING BLOOD GLUCOSE DIRECTED 100 Dec 19, 2019 [id number] Jun 06, 2019 PAMELA RAMSEY LANCET,SOFTCLIX Discontinued USE LANCET BIW FO R TESTING BLOOD GLUCOSE DIRECTED Jul 25, 2019 [id number] Nov 12, 2018 PAMELA RAMSEY LISINOPRIL 40MG TAB Non- VA TAKE ONE-HALF TABLET BY MOUTH EVERY MORNING Non-VA Documented by: PAMELA RAMSEY nted at: [facility] LORATADINE/PSEUDOEPHEDRINE TAB,SA Non-VA TAKE BY MOUTH No n-VA Documented by: JUAN LANG nted at: [facility] MAGNESIUM OXIDE 400MG TAB Non-VA TAKE [...] ACID (REPLACES ACIPHEX) 180 Dec 19, 2019 [id number] August 26, 2019 PAMELA RAMSEY POLYETHYLENE GLYCOL [...] Non-VA Documented by: KATHERINE MATT nted at: [facility] PREGABALIN 150MG CAP,ORAL Non-VA TAKE 1 CAPSULE BY MOUTH TWO TIMES A DAY Non-VA Docume nted by: PAMELA RAMSEY Docume nted at: [facility] SEMAGLUTIDE INJ,SOLN Non -VA INJECT SUBCUTANEOUSLY EVERY WEEK Non-VA Documented by: ANAYELI KIRKPATRICK Docume nted at: [facility] [place] [facility] TERBINAFINE HCL 1% CREAM,TOP Active APPLY LIGHT LY TO AFFECTED AREA TWO TIMES A DAY FOR INFECTION 90 Sep 23, 2020 [id number] Sep 24, 2019 ADRIEL HERNANDEZ UREA 20% CREAM,TOP Active APPLY LIGHTLY (20%) TO AFFECTED AREA TWO TIMES A DAY NEEDED TO PROMOTE HEALING,RUB IN UNTIL COMPLETELY ABSORBED*FOR TOPICAL USE ONLY* APPLY TO BOTH FEET DIRECTED. 90 Sep 25, 2020 [id number] Sep 26, 2019 ADRIEL HERNANDEZ Problems (Conditions): [...] Alcohol intake above recommended sensible limits Active 696760405 [facility] Allergic conjunctivitis Active 283370240 [facility] Bilateral senile combined form cataracts of eyes Active 48794545135 9108 [facility] Bilateral tinnitus Active 2402942350472 CHASTITY JEAN [facility] Coronary arteriosclerosis Active 35793243 September 08, 2014 Entered By: PADMA LONG Comment: hx of ptca to RCA several yrs. agoSeptember 08, 2014 Entered By: PADMA LONG Comment: heart cath 09/01/14, neg. / previous stent to RCA,, [place] HATCHER, JENNEY R [facility] Diabetes mellitus Active 85963830 PAMELA RAMSEY [facility] Disorder of pancreas Active 3661275 September 08, 2014 Entered By: PADMA LONG Comment: 2.5cm low density lseion in bodyMay 2014 Entered By: PADMA LONG Comment: question of communication with pancreatic ductMay 2014 Entered By: PADMA LONG Comment: favored to be cystic pancreatic cancerMay 2014 Entered By: PADMA LONG Comment: per abdominal CT 09/01/14, [place] [facility] Dry eyes Active 989355179 [facility] Gastro-esophageal reflux disease without esophagitis ( SNOMED CT 317111737) Active 561833340 [facility] History of malignant neoplasm of lung Active 698688436 [facility] M [facility] Hyperlipidemia (SNOMED CT 42956082) Active 31742640 PAMELA RAMSEY [facility] Lung mass Active 284621411 September 08, 2014 E ntered By: PADMA LONG Comment: 4.5 cm mass, post. segment right upper lobe.September 08, 2014 Entered By: PADMA LONG Comment: mild adenopathy in mediastinum and bilat. [email or web address] Entered By: PADMA LONG Comment: most likely related to lung cancerMa2014 Entered By: PADMA LONG Comment: per ct angio of chest with contrast 09/01/14,[place] 2014 Entered By: PADMA LONG Comment: per path report- mod. differentiated bronchogenic adenoca. 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 Active 96477947 KATHERINE MATT [facility] Obesity Active 271789513 [place] [facility] Obstructive sleep apnea syndrome (SNOMED CT 87161587) Active 375589 015 [facility] Pancreatic cyst Active 53322720 JAYLENE GUEVARA [facility] Papilloma of right eyelid Active 647569350288772 [facility] SH[facility] Polyp of colon Active 29046175 Jan 23 Entered By: PADMA LONG Comment: c-scope 01/17/16, multiple benign colonic polypsJun 28, 2017 Entered By: PADMA LONG Comment: c-scope,06/25/17,[facility], three benign polyps- sigmoid colon, transverse colon,cecum. see path report cprs SHARRON TORRES MO THAYER [facility] Pulmonary emphysema Active 98062905 0 BRIANA LESLYE [facility] Sensorineural hearing loss, bilateral Active 498035984 CHASTITY JEAN Nicol [facility] Snoring Active 08068441 [place] [facility] Type 2 diabetes mellitus without complication Active 544784860 [facility] SH[facility] Environmental Allergies [...] Inactive V77.91 Jan 18, 2007 PADMA LONG [facility] Stye * (ICD-9-CM 373.11) Inactive 373.11 Dec 18, 201 8 Jan 18, 2007 Entered By: PADMA LONG Comment: bilat lower lids, chronic/recurrent [facility] Tobacco Use Disorder, [...] the Encounter. The data comes from all [facility] facilities. Date/Time Pathology Report Provider [...] 11:11) Microscopic examination is performed. DIAGNOSIS: Specimen: [id number] Spec Type: SURGICAL Abdulkadir: 04/03/19 Rec: 04/03/19-1241 PATHOLOGIC DIAGNOSIS Skin lesion, right upper cheek, biopsy: 1. Seborrheic keratosis, not involving resection margins. 2. Solar elastosis. Skin lesion, right lower mid margin, biopsy: 1. Seborrheic keratosis, with tumor at tissue edge/margin, but with benign features. LL COPIES TO: [facility] CODES: 25693/2 at 1235 The gross and microscopic examinations and interpretation were performed at [facility] Department of Pathology, [address] [place] [id number]. Slides and paraffin blocks are on file at [facility]. =--=--=--=--=--=--=--=--=--=--=--=--=--=--=--=--=--=--=--=--=--=--=--=--=--=-- Performing Laboratory: Surgical Pathology Report Performed By: [facility] [CLIA# [id number]] [address] [place] [id number] [facility] 15 Encounter Notes: All associated encounter notes No Data Provided for This Section
--- OUTSIDE RECORDS SUMMARY | 2019-12-02 07:34 | XMS REPORT | Encounter Summary ---
Author Author [facility] Address [address] [place] [address] Phone Unavailable Care Team Providers Care Group Work Program Aide Name Role Phone ADRIEL HERNANDEZ PCP Unavailable Insurance Providers: All historical and current No Data Provided for This Section Selected Encounter This section includes the information on record at ID for the Encounter. Date/Time Encounter Type Encounter Description Reason Provider Source Mar 21, 2019 09:31 AM Outpatient Encounter SLEEP MEDICINE ICD-1 0-CM G47.33 Obstructive sleep apnea (adult) (pediatric) with Provider Comments: Obstructive Sleep Apnea (Adult) (Pediatric) KARI DUPREE [facility] IHE Encounter Template Text not used by ID Assessments - Encounter Diagnoses This section includes the primary and secondary diag noses documented for the Encounter. Date/Time Primary/Secondary Diagnosis Diagnosis Name Provider Source Mar 21, 2019 09:31 AM PRIMARY Obstructive sleep apnea (a dult) (pediatric) DELMERKIMBERLY [facility] Plan of Treatment: Future Appointments (+ 6 months) and Future Tests (+/- 45 day s) The Plan of Treatment section includes future care activities for the patient fr om all ID treatment facilities. This section includes future appointments and fu ture orders which are active, pending or scheduled. Future Appointments This section includes appointments that were scheduled t o occur 6 months from the date of the Encounter, up to a maximum of 20 appointme nts. The data comes from all [facility]. Appointment Date/Time Appointment Type Appointment Facili ty Name Mar 26, 2019 10:00 AM AMBULATORY - NONE ARTUR BLAS [facility] Apr 03, 2019 10:00 AM AMBULATORY - SURGERY ARTUR BLAS [facility] Apr 14, 2019 10:00 AM AMBULATORY - SURGERY [facility] Apr 28, 2019 11:00 AM AMBULATORY - NONE ARTUR BLAS [facility] Jun 25, 2019 11:30 AM AMBULATORY - NONE ARTUR BLAS [facility] Jun 25, 2019 01:15 PM AMBULATORY - MEDICINE ARTUR Shu BLAS Maite [facility] Jul 23, 2019 11:00 AM AMBULATORY - NONE ARTUR BLAS [facility] Jul 25, 2019 08:00 AM AMBULATORY - NONE ARTUR BLAS [facility] Aug 07, 2019 10:30 AM AMBULATORY - MEDICINE ARTUR Shu LEVIMila [facility] Active, Pending, and Scheduled Orders [...] the Encounter. The data comes from all [facility]. Test Date/Time Test Type Test Details Facility Name Apr 01, 2019 10:33 AM Consult Order [facility] [id number] Cons Disc [facility] Surgical Procedures: All associated to the encounter No Data Provided for This Section Lab Results: +/- 30 days of the encounter This section includes the Chemistry and Hematology Lab R esults on record with ID for the patient. Radiology Reports and Pathology Report s are provided separately, in subsequent sections. Lab Results This section contains the Chemistry/Hematology Results usha t were resulted 30 days before or 30 days after the date of the Encounter. Date/Time Source Result Type Result - Unit Interpretation Reference Range Comment Mar 21, 2019 08:55 AM [facility] HEMOGLOBIN A1C Specimen Type: BLOOD No [...] and tobacco- related health factors from the ID facility where the Encounter took place. Current Smoking Status This section includes the most current smoking, or tobacco -related health factor, from the ID facility where the Encounter took place. Date/Time Current Smoking Status Comment Facility Jun 26, 2018 02:13 PM VA-TOBACCO QUIT 15 YRS OR MORE PORSHA BLAS [facility] Tobacco Use History This section includes a history of the smoking, or tobacco -related health factors, that were collected on or before the date of the Encoun ter. The data comes from the ID facility where the Encounter took place. Date/Time Smoking Status/Tobacco Use Comment [facility] Jun 26, 2018 02:13 PM VA-TOBACCO QUIT 15 YRS OR MORE PORSHA BL[facility] Jun 27, 2017 01:39 PM NON-TOBACCO [...] patient. The data comes from a [facility] treatment facilities. It does not list Allergies/ADRs that were removed or entered in error. Some allergies/ADRs may be reported in t he Immunization section. Allergen Event Date Event Type Reaction(s) Severity Source [place] September 08, 2014 Propensity to adverse reactions to drug (diso rder) [facility], [facility] 15 [place] September 08, 2014 Propensity to adverse reactions to drug (diso rder) [facility] Medications: VA dispensed (-15 months) and Non-VA Documented (Obtained Outside A) Section Date Range: 1) prescriptions processed by a VA pharmacy in the last 15 m [facility], and 2) all medications recorded in the VA medical record as "non-VA medic ations". Pharmacy terms refer to VA pharmacy's work on prescriptions. VA patient s are advised to take their medications as instructed by their health care team. The data comes from all ID treatment facilities. Glossary of Pharmacy Terms:Active = A prescription that can be filled at the local VA pharmacy.Active: On Hold = An active prescription that will not be filled until pharmacy resolves the issue.Active: Susp = An active prescription that is not scheduled to be filled yet.Clinic Order = A medication received during a visit to a ID clinic or emergency department (currently not available).Discontinued [...] TEST BLOOD GLUCOSE 50 Dec 19, 2019 [id number] September 04, 2019 PAMELA RAMSEY GUILLERMO ACCU-CHEK CHARLES PLUS (GLUCOSE) TEST STRIP Discontinued USE 1 STRIP FOR TESTING TWO TIMES PER WEEK - DIRECTED TO TEST BLOOD GLUCOSE 50 Jul 25, 2019 [id number] Nov 12, 2018 PAMELA RAMSEY ALBUTEROL SO4 90MCG/ACTUAT (CFC-F) INHL,ORAL,6.7GM Active INHALE 2 PUFFS BY ORAL INHALATION EVERY 4 HOURS NEEDED FOR BREATHING. SHAKE WELL. RINSE MOUTHPIECE FREQUENTLY TO PREVENT CLOGGING. USE NEEDED FOR SHORTNESS OF AIR/WHEEZING FOR BREATHING. SHAKE WELL. RINSE MOUTHPIECE FREQUENTLY TO PREVENT CLOGGING. USE NEEDED FOR SHORTNESS OF AIR/WHEEZING 1 Dec 19, 2019 [id number] September 04, 2019 PAMELA RAMSEY ALCOHOL PREP PAD Active USE 1 PAD ON SKIN BIW TO CLEAN AND DISINFECT THE SKIN 200 Sep 29, 2020 [id number] Sep 30, 2019 MAURICIO RANKIN [facility] ALCOHOL PREP PAD Discontinued USE 1 PAD ON SKIN BI W TO CLEAN AND DISINFECT THE SKIN 200 Dec 19, 2019 [id number] Jun 06, 2019 PAMELA RAMSEY CBGUILLERMO ALCOHOL PREP PAD Discontinued USE 1 PAD ON SKIN BI W TO CLEAN AND DISINFECT THE SKIN 200 Jul 25, 2019 [id number] Nov 12, 2018 PAMELA RAMSEY ASCORBIC ACID 250MG TAB Non-VA TAKE ONE TABLET BY MOUTH ONCE A DAY Non-VA Documented by: SHANIQUA SCHMIDT nted at: [facility] ASPIRIN 25MG/DIPYRIDAMOLE 200MG CAP,SA Active T CHAPIN 1 CAPSULE BY MOUTH TWO TIMES A DAY - SWALLOW WHOLE. DO NOT CRUSH OR CHEW. FOR RECURRENT TIA/STROKE 180 Dec 19, 2019 [id number] Dec 20, 2018 PAMELA RAMSEY [facility] ASPIRIN 25MG/DIPYRIDAMOLE 200MG CAP,SA Discontinued T CHAPIN 1 CAPSULE BY MOUTH TWO TIMES A DAY - SWALLOW WHOLE. DO NOT CRUSH OR CHEW. FOR RECURRENT TIA/STROKE 180 Feb 06, 2019 [id number] Sep 28, 2018 ZACHARY GRECO V [facility] ASPIRIN 81MG TAB,EC Non- VA TAKE ONE TABLET BY MOUTH ONCE A DAY Non-VA Documented by: PADMA LONG nted at: [facility] ATORVASTATIN CA 80MG TAB Active TAKE ONE TABLET BY MOUTH AT BEDTIME FOR CHOLESTEROL - REPORT ANY UNEXPLAINED MUSCLE PAIN/WEAKNESS TO YOUR PROVIDER Dec 19, 2019 [id number] September 04, 2019 PAMELA RAMSEY ATORVASTATIN CA 80MG TAB Discontinued TAKE ONE TABLET BY MOUTH AT BEDTIME FOR CHOLESTEROL - REPORT ANY UNEXPLAINED MUSCLE PAIN/WEAKNESS TO YOUR PROVIDER 90 Dec 20, 2018 [id number] Nov 12, 2018 PAMELA RAMSEY BUDESONIDE 160MCG/FORMOTEROL FUM 4.5MCG/SPRAY INHL,ORAL,10.2 GM Active INHALE 2 PUFFS BY MOUTH TWO TIMES A DAY FOR BREATHING. SHAKE WELL. RINSE MOUTH AND SPIT AFTER EACH USE. 3 Apr 24, 2020 [id number] August 22, 2019 [facility] CALCIUM/VITAMIN D TAB No n-VA TAKE BY MOUTH ONCE A DAY Non-V A Documented by: PADMA LONG nted at: [facility] CARBOXYMETHYLCELLULOSE NA 0.5% SOLN,OPH Active INSTILL ONE DROP IN BOTH EYES FOUR TIMES A DAY FOR DRY EYES Feb 01, 2020 [id number] September 03 0 [facility] DICLOFENAC NA 1% GEL,TOP Discontinued APPLY 2 GRAMS A FFECTED AREA TWO TIMES A DAY NEEDED FOR PAIN AND INFLAMMATION. DO NOT EXCEED 16GM DAILY TO ANY AFFECTED JOINT OF LOWER EXTREMITIES. DO NOT EXCEED 8GM DAILY TO ANY AFFECTED JOINT OF UPPER EXTREMITES. DO NOT EXCEED TOTAL DOSE OF 32GM DAILY FOR ALL JOINTS. 100 Oct 31, 2018 [id number] Oct 06, 2018 ANAYELI KIRKPATRICK [facility] DICLOFENAC NA 1% GEL,TOP APPLY 2 GRAMS A FFECTED AREA TWO TIMES A DAY NEEDED FOR PAIN AND INFLAMMATION. DO NOT EXCEED 16GM DAILY TO ANY AFFECTED JOINT OF LOWER EXTREMITIES. DO NOT EXCEED 8GM DAILY TO ANY AFFECTED JOINT OF UPPER EXTREMITES. DO NOT EXCEED TOTAL DOSE OF 32GM DAILY FOR ALL JOINTS. 100 Jan 17, 2019 [id number] Dec 20, 2018 PAMELA RAMSEY FLUTICASONE PROPIONATE 50MCG/SPRAY SOLN,NASAL,16GM Active INSTILL 1 SPRAY IN EACH NOSTRIL ONCE A DAY SHAKE GENTLY BEFORE USE! - MUST BE USED DIRECTED FOR 3 WEEKS TO PROVIDE BENEFIT. * NO EARLY REFILLS * 1UNIT = 30DAYS AT 4 PF/DAY OR 60DAYS AT 2PF/DAY 2 Dec 19, 2019 [id number] August 26, 2019 PAMELA RAMSEY KETOTIFEN 0.025% SOLN,OPH Active INSTILL 1 DROP IN BOTH EYES TWO TIMES A DAY FOR RELIEF OF ALLERGY SYMPTOMS IN EYE(S) Feb 01, 2020 [id number] September 04, 2019 [facility] LANCET,SOFTCLIX Active USE LANCET BIW FOR TESTING BL OOD GLUCOSE DIRECTED 100 Sep 29, 2020 [id number] Sep 30, 2019 MAURICIO RANKIN [facility] LANCET,SOFTCLIX Discontinued USE LANCET BIW FO R TESTING BLOOD GLUCOSE DIRECTED Dec 19, 2019 [id number] Jun 06, 2019 PAMELA RAMSEY LANCET,SOFTCLIX Discontinued USE LANCET BIW FO R TESTING BLOOD GLUCOSE DIRECTED Jul 25, 2019 [id number] Nov 12, 2018 PAMELA RAMSEY LISINOPRIL 40MG TAB Non- VA TAKE ONE-HALF TABLET BY MOUTH EVERY MORNING Non-VA Documented by: PAMELA RAMSEY nted at: [facility] LORATADINE/PSEUDOEPHEDRINE TAB,SA Non-VA TAKE BY MOUTH No n-VA Documented by: JUAN LANG nted at: ARTUR BLAS [facility] MAGNESIUM OXIDE 400MG TAB Non-VA TAKE [...] ACID (REPLACES ACIPHEX) 180 Dec 19, 2019 [id number] August 26, 2019 PAMELA RAMSEY POLYETHYLENE GLYCOL 3350 PWDR,ORAL Non-VA TAKE 1 CAPFUL (17GM) BY MOUTH ONCE A DAY Non-VA Documented by: SHANIQUA SCHMIDT nted at: [facility] POTASSIUM GLUCONATE TAB Non-VA TAKE 90 MG BY MOUTH ONCE A DAY N on-VA Documented by: SHANIQUA SCHMIDT nted at: [facility] PRASUGREL HCL 10MG TAB N on-VA TAKE ONE TABLET BY MOUTH ONCE A DAY Non-VA Documented by: KATHERINE MATT nted at: [facility] PREGABALIN 150MG CAP,ORAL Non-VA TAKE 1 CAPSULE BY MOUTH TWO TIMES A DAY Non-VA Docume nted by: PAMELA RAMSEY Docume nted at: [facility] SEMAGLUTIDE INJ,SOLN Non -VA INJECT SUBCUTANEOUSLY EVERY WEEK Non-VA Documented by: ANAYELI KIRKPATRICK Docume nted at: [facility] [place] [facility] TERBINAFINE HCL 1% CREAM,TOP Active APPLY LIGHT LY TO AFFECTED AREA TWO TIMES A DAY FOR INFECTION Sep 23, 2020 [id number] Sep 24, 2019 ADRIEL HERNANDEZ UREA 20% CREAM,TOP Active APPLY LIGHTLY (20%) TO AFFECTED AREA TWO TIMES A DAY NEEDED TO PROMOTE HEALING,RUB IN UNTIL COMPLETELY ABSORBED*FOR TOPICAL USE ONLY* APPLY TO BOTH FEET DIRECTED. 90 Sep 25, 2020 [id number] Sep 26, 2019 ADRIEL HERNANDEZ Problems (Conditions): All historical and current Section Date Range: From patient's date of to the date document was create d. This section includes a list of Problems (Conditions) know n to VA for the patient. It includes both active and inacti ve problems (conditions). The data comes from all ID treatment facilities. Problem Status Problem Code Date of Onset Date of Resolution Comm ent(s) Provider Source Alcohol intake above recommended sensible limits Active 610434676 [facility] Allergic conjunctivitis Active 567060810 [place] Juan M [facility] Bilateral senile combined form cataracts of eyes Active 60910417595 9108 [place] [facility] Bilateral tinnitus Active 0516355205619 CHASTITY JEAN [facility] Coronary arteriosclerosis Active 57447747 September 08, 2014 Entered By: PADMA LONG Comment: hx of ptca to RCA several yrs. 2014 Entered By: PADMA LONG Comment: heart cath 09/01/14, neg. / previous stent to RCA,, [place] HATCHER, JENNEY R 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 cystic pancreatic cancerMay 2014 Entered By: PADMA LONG Comment: per abdominal CT 09/01/14, via [place] PADMA LONG [facility] Dry eyes Active 087920197 [facility] Gastro-esophageal reflux disease without esophagitis ( SNOMED CT 627051847) Active 975043176 ALF GUEVARA [facility] History of malignant neoplasm of lung Active 271738758 CHAPO BARRETO Juan M [facility] Hyperlipidemia (SNOMED CT 73232434) Active 04751786 PAMELA RAMSEY Juan M [facility] Lung mass Active 552929966 September 08, 2014 E ntered By: PADMA LONG Comment: 4.5 cm mass, post. segment right upper lobe.September 08, 2014 Entered By: PADMA LONG Comment: mild adenopathy in mediastinum and bilat. hilaMa2014 Entered By: PADMA LONG Comment: most likely related to lung cancerMa2014 Entered By: PADMA LONG Comment: per ct angio of chest with contrast 09/01/14,via [place] menesesndJun 2014 Entered By: PADMA LONG Comment: per path report- mod. differentiated bronchogenic adenoca. 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 Active 37903125 KATHERINE MATT [facility] Obesity Active 249827394 SONG BULLOCK [facility] Obstructive sleep apnea syndrome (SNOMED CT 10824363) Active 956653 015 [place] [facility] Pancreatic cyst Active 97322859 JAYLENE GUEVARA [facility] Papilloma of right eyelid Active [id number] [facility] Polyp of colon Active 03795694 Jan 23 Entered By: PADMA LONG Comment: c-scope 01/17/16, multiple benign colonic polypsJun 28, 2017 Entered By: PADMA LONG Comment: c-scope,06/25/17,dc-[facility], three benign polyps- sigmoid colon, transverse colon,cecum. see path report cprs SHARRON TORRES Mila [facility] Pulmonary emphysema Active 94146723 0 [facility]ANA [facility] Sensorineural hearing loss, bilateral Active 262875065 CHASTITY JEAN [facility] Snoring Active 07241188 SONG BULLOCK [facility] Type 2 diabetes mellitus without complication Active 610819547 FACUNDO SHAWICINicol Lares [facility] Environmental Allergies (ICD-9-CM 477.9) Inactive 477.9 Dec 18, 2017 PADMA LONG [facility] External hemorrhoids without mention of complication (ICD-9- CM 455.3) Inactive 455.3 Dec 18, 2017 PADMA LONG [facility] Impotence of organic origin (ICD-9-CM 607.84) Inactive 607.84 Dec 18, 2017 PADMA LONG [facility] Screening for Lipoid disorders (ICD-9-CM V77.91) Inactive V77.91 Jan 18, 2007 PADMA LONG [facility] Stye * (ICD-9-CM 373.11) Inactive 373.11 Dec 18, 201 8 Jan 18, 2007 Entered By: PADMA LONG Comment: bilat lower lids, chronic/recurrent PADMA LONG [facility] Tobacco Use Disorder, Continuous Inactive 305.1 Dec 18, 2017 Jan 18, 2007 Entered By: PADMA LONG Comment: one ppd PADMA LONG [facility] Radiology Reports: +/- 30 days of [...] the Encounter. The data comes from all [facility] facilities. Date/Time Pathology Report Provider Source Apr [...] 11:11) Microscopic examination is performed. DIAGNOSIS: Specimen: [id number] Spec Type: SURGICAL Abdulkadir: 04/03/19 Rec: 04/03/19-1241 PATHOLOGIC DIAGNOSIS Skin lesion, right upper cheek, biopsy: 1. Seborrheic keratosis, not involving resection margins. 2. Solar elastosis. Skin lesion, right lower mid margin, biopsy: 1. Seborrheic keratosis, with tumor at tissue edge/margin, but with benign features. LL COPIES TO: [facility] PATHOLOGIST CODES: 11384/2 at 1235 The gross and microscopic examinations and interpretation were performed at [facility] Department of Pathology, [address] [place] [address]. Slides and paraffin blocks are on file at [facility]. =--=--=--=--=--=--=--=--=--=--=--=--=--=--=--=--=--=--=--=--=--=--=--=--=--=-- Performing Laboratory: Surgical Pathology Report Performed By: [facility] [CLIA# [id number]] [address] [place], [place] [address] 15 Encounter Notes: [...] This appointment was done via TeleMed at [facility]. Consent for this TeleMed encounter was given by . Additional attendees, if any, were documented. Remotely accessed pt's data today and connected with him at the [facility]. This enounter will be for his annual [...] pressure set and confirmed with manometer @ [id number] /gisell/ KARI DUPREE SHIFT MGR respiratory therapist Signed: 03/21/2019 09:31 /gisell/ SONG BULLOCK STAFF PHYSICIAN/WIND TUNNEL ENGINEER Cosigned: 03/21/2019 15:25 KARI DUPREE [facility]
--- OUTSIDE RECORDS SUMMARY | 2019-12-02 07:34 | XMS REPORT | Encounter Summary ---
Author Author Department of [facility] HERBERTH kline Organization Department of [facility] Address [address] [place] [address] Phone Unavailable Care Team Providers Care [employer] Name Role Phone ADRIEL HERNANDEZ PCP Unavailable Insurance Providers: All historical and current No Data Provided for This Section Selected Encounter This section includes the information on record at [place] for the Encounter. Date/Time Encounter Type Encounter Description Reason Provider Source Mar 24, 2019 08:34 AM Outpatient Encounter PRIMARY CARE/MEDICINE [facility] IHE Encounter Template Text not used by [place] Assessments - Encounter Diagnoses No Data Provided for This Section Plan of Treatment: Future Appointments (+ 6 months) and Future Tests (+/- 45 day s) The Plan of Treatment section includes future care activities for the patient fr om all [place] treatment facilities. This section includes future appointments and fu ture orders which are active, pending or scheduled. Future Appointments This section includes appointments that were scheduled t o occur 6 months from the date of the Encounter, up to a maximum of 20 appointme nts. The data comes from all [place] treatment facilities. Appointment Date/Time Appointment Type Appointment Facili ty Name Mar 26, 2019 10:00 AM [facility] Apr 03, 2019 10:00 AM AMBULATORY - SURGERY [facility] Apr 14, 2019 10:00 AM AMBULATORY - SURGERY [facility] Apr 28, 2019 11:00 AM [facility] Jun 25, 2019 11:30 AM [facility] Jun 25, 2019 01:15 PM AMBULATORY - MEDICINE [facility] Jul 23, 2019 11:00 AM [facility] Jul 25, 2019 08:00 AM [facility] Aug 07, 2019 10:30 AM AMBULATORY - MEDICINE [facility]UR [facility] Sep 23, 2019 11:15 AM AMBULATORY - [...] the Encounter. The data comes from all [place] treatment facilities. 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 Radiology Reports and Pathology [...] and tobacco- related health factors from the [place] facility where the Encounter took place. Current [...] Encoun ter. The data comes from the [place] facility where the Encounter took place. Date/Time Smoking Status/Tobacco Use Comment [facility] it Nov 23, 2017 09:51 AM CURRENT TOBACCO USER (READY TO QUIT) [facility] Nov 23, 2017 09:51 AM TOBACCO CESSATION REFERRAL DECLINED [facility] Nov 23, 2017 09:51 AM TOBACCO [...] patient. The data comes from a ll [place] treatment facilities. It does not list Allergies/ADRs [...] drug (diso rder) [facility] 15 Medications: [facility] dispensed (-15 months) [...] care team. The data comes from all [place] treatment facilities. Glossary of Pharmacy Terms:Active = A prescription that can be filled at the local [place] pharmacy.Active: On Hold = An active prescription that will not be filled until pharmacy resolves the issue.Active: Susp = An active prescription that is not scheduled to be filled yet.Clinic Order = A medication received during a visit to a [place] clinic or emergency department (currently not available).Discontinued [...] may be a prescription from either the [place] or other providers that was filled outside the [place]. Or, it may be an over the [...] TEST BLOOD GLUCOSE 50 Dec 19, 2019 [id number] September 04, 2019 PAMELA RAMSEY GUILLERMO ACCU-CHEK CHARLES PLUS (GLUCOSE) TEST STRIP Discontinued USE 1 STRIP FOR TESTING TWO TIMES PER WEEK - DIRECTED TO TEST BLOOD GLUCOSE 50 Jul 25, 2019 [id number] Nov 12, 2018 PAMELA RAMSEY [facility] ALBUTEROL SO4 90MCG/ACTUAT (CFC-F) INHL,ORAL,6.7GM Active INHALE 2 PUFFS BY ORAL INHALATION EVERY 4 HOURS NEEDED FOR BREATHING. SHAKE WELL. RINSE MOUTHPIECE FREQUENTLY TO PREVENT CLOGGING. USE NEEDED FOR SHORTNESS OF AIR/WHEEZING FOR BREATHING. SHAKE WELL. RINSE MOUTHPIECE FREQUENTLY TO PREVENT CLOGGING. USE NEEDED FOR SHORTNESS OF AIR/WHEEZING 1 Dec 19, 2019 [id number] September 04, 2019 PAMELA RAMSEY [facility] ALCOHOL PREP PAD Active USE 1 PAD ON SKIN BIW TO CLEAN AND DISINFECT THE SKIN Sep 29, 2020 [id number] Sep 30, 2019 MAURICIO RANKIN [facility] ALCOHOL PREP PAD Discontinued USE 1 PAD ON SKIN BI W TO CLEAN AND DISINFECT THE SKIN 200 Dec 19, 2019 [id number] Jun 06, 2019 PAMELA RAMSEY CBGUILLERMO ALCOHOL PREP PAD Discontinued USE 1 PAD ON SKIN BI W TO CLEAN AND DISINFECT THE SKIN 200 Jul 25, 2019 [id number] Nov 12, 2018 PAMELA RAMSEY ASCORBIC ACID 250MG TAB Non-VA TAKE ONE TABLET BY MOUTH ONCE A DAY Non-VA Documented by: SHANIQUA SCHMIDT nted at: [facility] ASPIRIN 25MG/DIPYRIDAMOLE 200MG CAP,SA Active T CHAPIN 1 CAPSULE BY MOUTH TWO TIMES A DAY - SWALLOW WHOLE. DO NOT CRUSH OR CHEW. FOR RECURRENT TIA/STROKE 180 Dec 19, 2019 [id number] Dec 20, 2018 [facility] ASPIRIN 25MG/DIPYRIDAMOLE 200MG CAP,SA Discontinued T CHAPIN 1 CAPSULE BY MOUTH TWO TIMES A DAY - SWALLOW WHOLE. DO NOT CRUSH OR CHEW. FOR RECURRENT TIA/STROKE 180 Feb 06, 2019 [id number] Sep 28, 2018 ZACHARY GRECO [facility] ASPIRIN 81MG TAB,EC Non- [place] TAKE ONE TABLET BY MOUTH ONCE A DAY Non-VA Documented by: PADMA LONG nted at: [facility] ATORVASTATIN CA 80MG TAB Active TAKE ONE TABLET BY MOUTH AT BEDTIME FOR CHOLESTEROL - REPORT ANY UNEXPLAINED MUSCLE PAIN/WEAKNESS TO YOUR PROVIDER 90 Dec 19, 2019 [id number] September 04, 2019 PAMELA RAMSEY ATORVASTATIN CA 80MG TAB Discontinued TAKE ONE TABLET BY MOUTH AT BEDTIME FOR CHOLESTEROL - REPORT ANY UNEXPLAINED MUSCLE PAIN/WEAKNESS TO YOUR PROVIDER 90 Dec 20, 2018 [id number] Nov 12, 2018 PAMELA RAMSEY BUDESONIDE 160MCG/FORMOTEROL FUM 4.5MCG/SPRAY INHL,ORAL,10.2 GM Active INHALE 2 PUFFS BY MOUTH TWO TIMES A DAY FOR BREATHING. SHAKE WELL. RINSE MOUTH AND SPIT AFTER EACH USE. 3 Apr 24, 2020 [id number] August 22, 2019 LISSA OATES [facility] CALCIUM/VITAMIN D TAB No n-VA TAKE BY MOUTH ONCE A DAY Non-V A Documented by: PADMA LONG nted at: [facility] CARBOXYMETHYLCELLULOSE NA 0.5% SOLN,OPH Active INSTILL ONE DROP IN BOTH EYES FOUR TIMES A DAY FOR DRY EYES 15 Feb 01, 2020 [id number] September 03 0 [facility] [...] FOR ALL JOINTS. 100 Oct 31, 2018 [id number] Oct 06, 2018 [facility] DICLOFENAC NA 1% GEL,TOP APPLY 2 GRAMS A FFECTED AREA TWO TIMES A DAY NEEDED FOR PAIN AND INFLAMMATION. DO NOT EXCEED 16GM DAILY TO ANY AFFECTED JOINT OF LOWER EXTREMITIES. DO NOT EXCEED 8GM DAILY TO ANY AFFECTED JOINT OF UPPER EXTREMITES. DO NOT EXCEED TOTAL DOSE OF 32GM DAILY FOR ALL JOINTS. 100 Jan 17, 2019 [id number] Dec 20, 2018 PAMELA RAMSEY FLUTICASONE PROPIONATE 50MCG/SPRAY SOLN,NASAL,16GM Active INSTILL 1 SPRAY IN EACH NOSTRIL ONCE A DAY SHAKE GENTLY BEFORE USE! - MUST BE USED DIRECTED FOR 3 WEEKS TO PROVIDE BENEFIT. * NO EARLY REFILLS * 1UNIT = 30DAYS AT 4 PF/DAY OR 60DAYS AT 2PF/DAY 2 Dec 19, 2019 [id number] August 26, 2019 PAMELA RAMSEY KETOTIFEN 0.025% SOLN,OPH Active INSTILL 1 DROP IN BOTH EYES TWO TIMES A DAY FOR RELIEF OF ALLERGY SYMPTOMS IN EYE(S) 10 Feb 01, 2020 [id number] September 04, 2019 [facility] LANCET,SOFTCLIX Active USE LANCET BIW FOR TESTING BL OOD GLUCOSE DIRECTED 100 Sep 29, 2020 [id number] Sep 30, 2019 [facility] LANCET,SOFTCLIX Discontinued USE LANCET BIW FO R TESTING BLOOD GLUCOSE DIRECTED Dec 19, 2019 [id number] Jun 06, 2019 PAMELA RAMSEY LANCET,SOFTCLIX Discontinued USE LANCET BIW FO R TESTING BLOOD GLUCOSE DIRECTED 100 Jul 25, 2019 [id number] Nov 12, 2018 PAMELA RAMSEY LISINOPRIL 40MG TAB Non- [place] TAKE ONE-HALF TABLET BY MOUTH EVERY MORNING Non-VA Documented by: PAMELA RAMSEY nted at: [facility] LORATADINE/PSEUDOEPHEDRINE TAB,SA Non-VA TAKE BY MOUTH No n-VA Documented by: JUAN LANG Docume nted at: [facility]UR [facility]AS [facility] MAGNESIUM OXIDE 400MG TAB Non-VA TAKE [...] ACID (REPLACES ACIPHEX) 180 Dec 19, 2019 [id number] August 26, 2019 PAMELA RAMSEY POLYETHYLENE GLYCOL [...] Non-VA Documented by: KATHERINE MATTume nted at: [facility] PREGABALIN 150MG CAP,ORAL Non-VA TAKE 1 CAPSULE BY MOUTH TWO TIMES A DAY Non-VA Docume nted by: PAMELA RAMSEY nted at: [facility] SEMAGLUTIDE INJ,SOLN Non -VA INJECT SUBCUTANEOUSLY EVERY WEEK Non-VA Documented by: ANAYELI KIRKPATRICK nted at: [facility] TERBINAFINE HCL 1% CREAM,TOP Active APPLY LIGHT LY TO AFFECTED AREA TWO TIMES A DAY FOR INFECTION 90 Sep 23, 2020 [id number] Sep 24, 2019 ADRIEL HERNANDEZ [facility] UREA 20% CREAM,TOP Active APPLY LIGHTLY (20%) TO AFFECTED AREA TWO TIMES A DAY NEEDED TO PROMOTE HEALING,RUB IN UNTIL COMPLETELY ABSORBED*FOR TOPICAL USE ONLY* APPLY TO BOTH FEET DIRECTED. 90 Sep 25, 2020 [id number] Sep 26, 2019 ADRIEL HERNANDEZ CB Problems (Conditions): All historical and current Section Date Range: From patient's date of to the date document was create d. This section includes a list of Problems (Conditions) know n to [place] for the [place]. It includes both active and inacti ve problems (conditions). The data comes from all [place] treatment facilities. Problem Status Problem Code Date of Onset Date of Resolution Comm ent(s) Provider Source Alcohol intake above recommended sensible limits Active 489309882 PADMA LONG [facility] Allergic conjunctivitis Active 097045967 [place] [facility] Bilateral senile combined form cataracts of eyes Active 99082953662 9108 [facility] Bilateral tinnitus Active 7016866438308 [facility] JEAN [facility] Coronary arteriosclerosis Active 77696237 September 08, 2014 Entered By: PADMA LONG Comment: hx of ptca to RCA several yrs. agoSeptember 08, 2014 Entered By: PADMA LONG Comment: heart cath 09/01/14, neg. / previous stent to RCA,, [place] HATCHER, JENNEY R [facility] Diabetes mellitus Active 56596414 PAMELA RAMSEY [facility] Disorder of pancreas Active 1140014 September 08, 2014 Entered By: PADMA LONG Comment: 2.5cm low density lseion in bodyMay 2014 Entered By: PADMA LONG Comment: question of communication with pancreatic ductMa2014 Entered By: PADMA LONG Comment: favored to be cystic pancreatic cancerMay 2014 Entered By: PADMA LONG Comment: per abdominal CT 09/01/14, [place] PADMA LONG [facility] Dry eyes Active 828514667 [place] Gastro-esophageal reflux disease without esophagitis ( SNOMED CT 013975493) Active 785674661 ALF GUEVARA [facility] History of malignant neoplasm of lung Active 623841676 CHAPO BARRETO [facility] Hyperlipidemia (SNOMED CT 19899947) Active 90507112 PAMELA RAMSEY [facility] Lung mass Active 093851029 September 08, 2014 E ntered By: PADMA LONG Comment: 4.5 cm mass, post. segment right upper lobe.September 08, 2014 Entered By: PADMA LONG Comment: mild adenopathy in mediastinum and bilat. hilaMay 2014 Entered By: PADMA LONG Comment: most likely related to lung cancerMay 2014 Entered By: PADMA LONG Comment: per ct angio of chest with contrast 09/01/14,via [place] 2014 Entered By: PADMA LONG Comment: per path report- mod. differentiated bronchogenic adenoca. 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 Active 01069756 KATHERINE MATT [facility] Obesity Active 169202876 [place] Obstructive sleep apnea syndrome (SNOMED CT 28020958) Active 665222 015 [place] [facility] Pancreatic cyst Active 34434345 JAYLENE GUEVARA [facility] Papilloma of right eyelid Active [id number] [place] [facility] [facility] Polyp of colon Active 85551163 Jan 23 16 Entered By: PADMA LONG Comment: c-scope 01/17/16, multiple benign colonic polypsJun 28, 2017 Entered By: PADMA LONG Comment: c-scope,3/05/18,[facility], three benign polyps- sigmoid colon, transverse colon,cecum. see path report cprs SHARRON TORRES JEOVANY [facility] Pulmonary emphysema Active 23279906 0 BRIANA GAVIN [facility] Sensorineural hearing loss, bilateral Active 126369686 CHASTITY JEAN [facility] Snoring Active 20530411 Jayshree BULLOCKUBAIR [facility] Type 2 diabetes mellitus without complication Active 696260371 [place] [facility] Environmental Allergies (ICD-9-CM 477.9) Inactive 477.9 Dec 18, 2017 PADMA LONG [facility] External hemorrhoids without mention of complication (ICD-9- CM 455.3) Inactive 455.3 Dec 18, 2017 [facility] Impotence of organic origin (ICD-9-CM 607.84) Inactive 607.84 Dec 18, 2017 PADMA LONG [facility] Screening for Lipoid disorders (ICD-9-CM V77.91) Inactive V77.91 Jan 18, 2007 [facility] Stye * (ICD-9-CM 373.11) Inactive 373.11 Dec 18, 8 Jan 18, 2007 Entered By: PADMA LONG Comment: bilat lower lids, chronic/recurrent [facility] Tobacco Use Disorder, Continuous Inactive 305.1 Dec 18, 2017 Jan 18, 2007 Entered By: PADMA LONG Comment: one ppd PADMA LONG [facility] Radiology Reports: +/- 30 days of [...] the Encounter. The data comes from all [place] treatment facilities. Date/Time Pathology Report Provider Source [...] 11:11) Microscopic examination is performed. DIAGNOSIS: Specimen: [id number] Spec Type: SURGICAL Abdulkadir: 04/03/19 Rec: 04/03/19-1241 PATHOLOGIC DIAGNOSIS Skin lesion, right upper cheek, biopsy: 1. Seborrheic keratosis, not involving resection margins. 2. Solar elastosis. Skin lesion, right lower mid margin, biopsy: 1. Seborrheic keratosis, with tumor at tissue edge/margin, but with benign features. LL COPIES TO: KATHERINE MATT [facility] PATHOLOGIST CODES: 86264/2 at 1235 The gross and microscopic examinations and interpretation were performed at [facility] Department of Pathology, [address] [place] [address]. Slides and paraffin blocks are on file at [facility]. =--=--=--=--=--=--=--=--=--=--=--=--=--=--=--=--=--=--=--=--=--=--=--=--=--=-- Performing Laboratory: Surgical Pathology Report Performed By: [facility] [CLIA# [id number]] [address] [place] [address] [facility] 15 Encounter Notes: All associated encounter notes This section contains the clinical notes associated to the Encounter. Date/Time Encounter Note(s) Provider Source Mar 24, 2019 08:34 AM ADMINISTRATIVE NOTE: LOCAL TITLE: WI-ADMINISTRATIVE NOTE (Samantha BELCHER) STANDARD TITLE: ADMINISTRATIVE NOTE DATE OF NOTE: MAR 24, 2019@08:34 ENTRY DATE: MAR 24, 2019@08:34:59 AUTHOR: PAMELA RAMSEY EXP COSIGNER: URGENCY: STATUS: COMPLETED [place]-ADMINISTRATIVE NOTE (BPO) Has ADDENDA A1C reviewed 6.9. Repeat 6 months. /gisell/ PAMELA RAMSEY DEPARTMENT CLINICIAN Signed: 03/24/2019 08:37 03/26/2019 ADDENDUM STATUS: COMPLETED Contacted pt via telephone and notified of A1C results and providers instructions. Pt V/U. /gisell/ SHANIQUA SCHMIDT RN Signed: 03/26/2019 13:15 [facility]
--- OUTSIDE RECORDS SUMMARY | 2019-12-02 07:34 | XMS REPORT | Encounter Summary ---
Author Author [facility] Address [address] [place] [address] Phone Unavailable Care Team Providers Care Typesetting Supervisor Name Role Phone ADRIEL HERNANDEZ PCP Unavailable [...] with Provider Comments: Abnormal Glucose SHANIQUA SCHMIDT [facility] IHE Encounter Template Text not used by [place] Assessments - Encounter Diagnoses This section includes the primary and secondary diag noses documented for the Encounter. Date/Time Primary/Secondary Diagnosis Diagnosis Name Provider Source Mar 26, 2019 01:15 PM PRIMARY Other abnormal glucose ROMMEL SCHMIDT [facility] Plan of Treatment: Future Appointments (+ [...] AM AMBULATORY - SURGERY ARTUR BLAS [facility] Apr 14, 2019 10:00 AM AMBULATORY - SURGERY [facility] Apr 28, 2019 11:00 AM AMBULATORY - NONE ARTUR BLAS [facility] Jun 25, 2019 11:30 AM AMBULATORY - NONE ARTUR BLAS [facility] Jun 25, 2019 01:15 PM AMBULATORY - MEDICINE ARTUR BLAS [facility] Jul 23, 2019 11:00 AM AMBULATORY - NONE ARTUR BLAS [facility] Jul 25, 2019 08:00 AM AMBULATORY - NONE ARTUR BLAS [facility] Aug 07, 2019 10:30 AM AMBULATORY - MEDICINE ARTUR BLAS [facility] [place] Sep 23, 2019 11:15 [...] Encounter. The data comes from all [facility] facilities. Test Date/Time Test Type Test Details Facility Name Apr 01, 2019 10:33 AM Consult Order [facility] [id number] Cons Pricing Analyst[employer] Choice [facility] Surgical Procedures: All associated [...] the patient. The data comes from a Critical access hospital treatment facilities. It does not list Allergies/ADRs that were removed or entered in error. Some allergies/ADRs may be reported in t he Immunization section. Allergen Event Date Event Type Reaction(s) Severity Source BRIL[place] September 08, 2014 Propensity to adverse reactions to drug (diso rder) [facility], [facility] 15 [place] September 08, 2014 Propensity to adverse reactions to drug (diso rder) [facility] 15 Medications: VA dispensed (-15 months) and Non-VA Documented (Obtained Outside A) Section Date Range: 1) prescriptions processed by a [facility] pharmacy in the last 15 m [facility], and 2) all medications recorded [...] TEST BLOOD GLUCOSE 50 Dec 19, 2019 [id number] September 04, 2019 PAMELA RAMSEY ACCU-CHEK CHARLES PLUS (GLUCOSE) TEST STRIP Discontinued USE 1 STRIP FOR TESTING TWO TIMES PER WEEK - DIRECTED TO TEST BLOOD GLUCOSE 50 Jul 25, 2019 [id number] Nov 12, 2018 PAMELA RAMSEY ALBUTEROL SO4 90MCG/ACTUAT (CFC-F) INHL,ORAL,6.7GM Active INHALE 2 PUFFS BY ORAL INHALATION EVERY 4 HOURS NEEDED FOR BREATHING. SHAKE WELL. RINSE MOUTHPIECE FREQUENTLY TO PREVENT CLOGGING. USE NEEDED FOR SHORTNESS OF AIR/WHEEZING FOR BREATHING. SHAKE WELL. RINSE MOUTHPIECE FREQUENTLY TO PREVENT CLOGGING. USE NEEDED FOR SHORTNESS OF AIR/WHEEZING 1 Dec 19, 2019 [id number] September 04, 2019 PAMELA RAMSEY ALCOHOL PREP PAD Active USE 1 PAD ON SKIN BIW TO CLEAN AND DISINFECT THE SKIN 200 Sep 29, 2020 [id number] Sep 30, 2019 MAURICIO RANKIN [facility] ALCOHOL PREP PAD Discontinued USE 1 PAD ON SKIN BI W TO CLEAN AND DISINFECT THE SKIN 200 Dec 19, 2019 [id number] Jun 06, 2019 PAMELA RAMSEY ALCOHOL PREP PAD Discontinued USE 1 PAD ON SKIN BI W TO CLEAN AND DISINFECT THE SKIN 200 Jul 25, 2019 [id number] Nov 12, 2018 PAMEAL RAMSEY [facility] ASCORBIC ACID 250MG TAB Non-VA TAKE ONE TABLET BY MOUTH ONCE A DAY Non-VA Documented by: SHANIQUA SCHMIDT nted at: [facility] ASPIRIN 25MG/DIPYRIDAMOLE 200MG CAP,SA Active T CHAPIN 1 CAPSULE BY MOUTH TWO TIMES A DAY - SWALLOW WHOLE. DO NOT CRUSH OR CHEW. FOR RECURRENT TIA/STROKE 180 Dec 19, 2019 [id number] Dec 20, 2018 PAMELA RAMSEY [facility] ASPIRIN 25MG/DIPYRIDAMOLE 200MG CAP,SA Discontinued T CHAPIN 1 CAPSULE BY MOUTH TWO TIMES A DAY - SWALLOW WHOLE. DO NOT CRUSH OR CHEW. FOR RECURRENT TIA/STROKE 180 Feb 06, 2019 [id number] Sep 28, 2018 ZACHARY GRECO [facility] ASPIRIN 81MG TAB,EC Non- VA TAKE ONE TABLET BY MOUTH ONCE A DAY Non-VA Documented by: PADMA LONG nted at: [facility] ATORVASTATIN CA 80MG TAB Active TAKE ONE TABLET BY MOUTH AT BEDTIME FOR CHOLESTEROL - REPORT ANY UNEXPLAINED MUSCLE PAIN/WEAKNESS TO YOUR PROVIDER 90 Dec 19, 2019 [id number] September 04, 2019 PAMELA RAMSEY ATORVASTATIN CA 80MG TAB Discontinued TAKE ONE TABLET BY MOUTH AT BEDTIME FOR CHOLESTEROL - REPORT ANY UNEXPLAINED MUSCLE PAIN/WEAKNESS TO YOUR PROVIDER 90 Dec 20, 2018 [id number] Nov 12, 2018 PAMELA RAMSEY BUDESONIDE 160MCG/FORMOTEROL FUM 4.5MCG/SPRAY INHL,ORAL,10.2 GM Active INHALE 2 PUFFS BY MOUTH TWO TIMES A DAY FOR BREATHING. SHAKE WELL. RINSE MOUTH AND SPIT AFTER EACH USE. 3 Apr 24, 2020 [id number] August 22, 2019 LISSA OATES [facility] CALCIUM/VITAMIN D TAB No n-VA TAKE BY MOUTH ONCE A DAY Non-V A Documented by: PADMA LONG nted at: [facility] CARBOXYMETHYLCELLULOSE NA 0.5% SOLN,OPH Active INSTILL ONE DROP IN BOTH EYES FOUR TIMES A DAY FOR DRY EYES 15 Feb 01, 2020 [id number] September 03 0 [facility] DICLOFENAC NA 1% GEL,TOP Discontinued APPLY 2 GRAMS A FFECTED AREA TWO TIMES A DAY NEEDED FOR PAIN AND INFLAMMATION. DO NOT EXCEED 16GM DAILY TO ANY AFFECTED JOINT OF LOWER EXTREMITIES. DO NOT EXCEED 8GM DAILY TO ANY AFFECTED JOINT OF UPPER EXTREMITES. DO NOT EXCEED TOTAL DOSE OF 32GM DAILY FOR ALL JOINTS. 100 Oct 31, 2018 [id number] Oct 06, 2018 ANAYELI KIRKPATRICK [facility] DICLOFENAC NA 1% GEL,TOP APPLY 2 GRAMS A FFECTED AREA TWO TIMES A DAY NEEDED FOR PAIN AND INFLAMMATION. DO NOT EXCEED 16GM DAILY TO ANY AFFECTED JOINT OF LOWER EXTREMITIES. DO NOT EXCEED 8GM DAILY TO ANY AFFECTED JOINT OF UPPER EXTREMITES. DO NOT EXCEED TOTAL DOSE OF 32GM DAILY FOR ALL JOINTS. 100 Jan 17, 2019 [id number] Dec 20, 2018 PAMELA RAMSEY FLUTICASONE PROPIONATE 50MCG/SPRAY SOLN,NASAL,16GM Active INSTILL 1 SPRAY IN EACH NOSTRIL ONCE A DAY SHAKE GENTLY BEFORE USE! - MUST BE USED DIRECTED FOR 3 WEEKS TO PROVIDE BENEFIT. * NO EARLY REFILLS * 1UNIT = 30DAYS AT 4 PF/DAY OR 60DAYS AT 2PF/DAY 2 Dec 19, 2019 [id number] August 26, 2019 PAMELA RAMSEY KETOTIFEN 0.025% SOLN,OPH Active INSTILL 1 DROP IN BOTH EYES TWO TIMES A DAY FOR RELIEF OF ALLERGY SYMPTOMS IN EYE(S) Feb 01, 2020 [id number] September 04, 2019 [facility] LANCET,SOFTCLIX Active USE LANCET BIW FOR TESTING BL OOD GLUCOSE DIRECTED 100 Sep 29, 2020 [id number] Sep 30, 2019 MAURICIO RANKIN [facility] LANCET,SOFTCLIX Discontinued USE LANCET BIW FO R TESTING BLOOD GLUCOSE DIRECTED 100 Dec 19, 2019 [id number] Jun 06, 2019 PAMELA RAMSEY LANCET,SOFTCLIX Discontinued USE LANCET BIW FO R TESTING BLOOD GLUCOSE DIRECTED 100 Jul 25, 2019 [id number] Nov 12, 2018 PAMELA RAMSEY LISINOPRIL 40MG TAB Non- VA TAKE ONE-HALF TABLET BY MOUTH EVERY MORNING Non-VA Documented by: PAMELA RAMSEY nted at: [facility] LORATADINE/PSEUDOEPHEDRINE TAB,SA Non-VA TAKE BY MOUTH No n-VA Documented by: JUAN LANG nted at: ARTUR BLAS [facility] MAGNESIUM OXIDE 400MG TAB Non-VA TAKE [...] ACID (REPLACES ACIPHEX) 180 Dec 19, 2019 [id number] August 26, 2019 PAMELA RAMSEY POLYETHYLENE GLYCOL [...] Non-VA Documented by: KATHERINE MATT nted at: [facility] PREGABALIN 150MG CAP,ORAL Non-VA TAKE 1 CAPSULE BY MOUTH TWO TIMES A DAY Non-VA Docume nted by: PAMELA RAMSEY Docume nted at: [facility] SEMAGLUTIDE INJ,SOLN Non -VA INJECT SUBCUTANEOUSLY EVERY WEEK Non-VA Documented by: ANAYELI KIRKPATRICK Docume nted at: [facility] [place] [facility] TERBINAFINE HCL 1% CREAM,TOP Active APPLY LIGHT LY TO AFFECTED AREA TWO TIMES A DAY FOR INFECTION 90 Sep 23, 2020 [id number] Sep 24, 2019 ADRIEL HERNANDEZ UREA 20% CREAM,TOP Active APPLY LIGHTLY (20%) TO AFFECTED AREA TWO TIMES A DAY NEEDED TO PROMOTE HEALING,RUB IN UNTIL COMPLETELY ABSORBED*FOR TOPICAL USE ONLY* APPLY TO BOTH FEET DIRECTED. 90 Sep 25, 2020 [id number] Sep 26, 2019 ADRIEL HERNANDEZ Problems (Conditions): [...] Alcohol intake above recommended sensible limits Active 267763348 PADMA LONG [facility] Allergic conjunctivitis Active 325524060 VALERAFACUNDONEDA Luda [facility] Bilateral senile combined form cataracts of eyes Active 84239370658 9108 [facility] Luda [facility] Bilateral tinnitus Active [id number] CHASTITY JEAN [facility] Coronary arteriosclerosis Active 74126621 September 08, 2014 Entered By: PADMA LONG Comment: hx of ptca to RCA several yrs. agoSeptember 08, 2014 Entered By: PADMA LONG Comment: heart cath 09/01/14, neg. / previous stent to RCA,, [place] HATCHER, JENNEY R [facility] Diabetes mellitus Active 26869555 PAMELA RAMSEY [facility] Disorder of pancreas Active 9893791 September 08, 2014 Entered By: PADMA LONG Comment: 2.5cm low density lseion in bodyMay 2014 Entered By: PADMA LONG Comment: question of communication with pancreatic ductMay 2014 Entered By: PADMA LONG Comment: favored to be cystic pancreatic cancerMay 2014 Entered By: PADMA LONG Comment: per abdominal CT 09/01/14, [place] PADMA LONG [facility] Dry eyes Active 944461835 NEDA SHAW [facility] Gastro-esophageal reflux disease without esophagitis ( SNOMED CT 152244820) Active 417131479 ALF GUEVARA [facility] History of malignant neoplasm of lung Active 868333618 CHAPO BARRETO Juan M [facility] Hyperlipidemia (SNOMED CT 56024973) Active 82842509 PAMELA RAMSEY Juan M [facility] Lung mass Active 568056116 September 08, 2014 E ntered By: PADMA LONG Comment: 4.5 cm mass, post. segment right upper lobe.September 08, 2014 Entered By: PADMA LONG Comment: mild adenopathy in mediastinum and bilat. [email or web address] Entered By: PADMA LONG Comment: most likely related to lung [id number] Entered By: PADMA LONG Comment: per ct angio of chest with contrast 09/01/14,[place] 2014 Entered By: PADMA LONG Comment: per path report- mod. differentiated bronchogenic adenoca. PADMA LONG 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 Obesity Active 627562977 SONG BULLOCK [facility] Obstructive sleep apnea syndrome (SNOMED CT 45286901) Active 402591 015 [facility] [place] [facility] Pancreatic cyst Active 58216851 JAYLENE GUEVARA [facility] Papilloma of right eyelid Active [id number] NEDA SHAW Juan M [facility] Polyp of colon Active 63344530 Jan 23 Entered By: PADMA LONG Comment: c-scope 01/17/16, multiple benign colonic polypsJun 28, 2017 Entered By: PADMA LONG Comment: c-scope,06/25/17,[facility], three benign polyps- sigmoid colon, transverse colon,cecum. see path report cprs SHARRON TORRES JEOVANY [facility] Pulmonary emphysema Active 00191317 0 BRIANA LESLYE [facility] Sensorineural hearing loss, bilateral Active 243499601 CHASTITY JEAN Nicol [facility] Snoring Active 39928727 SONG BULLOCK [facility] Type 2 diabetes mellitus without complication Active 701961180 NEDA SHAW [facility] Environmental Allergies (ICD-9-CM 477.9) Inactive 477.9 Dec 18, 2017 PADMA LONG [facility] External hemorrhoids without mention of complication (ICD-9- CM 455.3) Inactive 455.3 Dec 18, 2017 PADMA LONG [facility] Impotence of organic origin (ICD-9-CM 607.84) Inactive 607.84 Dec 18, 2017 PADMA LONG [facility] Screening for Lipoid disorders (ICD-9-CM V77.91) Inactive V77.91 Jan 18, 2007 PADMA LONG [facility] Stye * (ICD-9-CM 373.11) Inactive 373.11 Dec 18, 201 8 Jan 18, 2007 Entered By: PADMA LONG Comment: bilat lower lids, chronic/recurrent [facility] Tobacco Use Disorder, [...] data comes from all [place] treatment facilities. Date/Time Pathology Report Provider Source [...] 11:11) Microscopic examination is performed. DIAGNOSIS: Specimen: [id number] Spec Type: SURGICAL Abdulkadir: 04/03/19 Rec: 04/03/19-1241 PATHOLOGIC DIAGNOSIS Skin lesion, right upper cheek, biopsy: 1. Seborrheic keratosis, not involving resection margins. 2. Solar elastosis. Skin lesion, right lower mid margin, biopsy: 1. Seborrheic keratosis, with tumor at tissue edge/margin, but with benign features. LL COPIES TO: [facility] PATHOLOGIST CODES: 93109/2 at 1235 The gross and microscopic examinations and interpretation were performed at [facility] Department of Pathology, [address] [place] [id number]. Slides and paraffin blocks are on file at [facility]. =--=--=--=--=--=--=--=--=--=--=--=--=--=--=--=--=--=--=--=--=--=--=--=--=--=-- Performing Laboratory: Surgical Pathology Report Performed By: [facility] [CLIA# [id number]] [facility] [address] EDWARD [facility] 15 Encounter Notes: All associated encounter notes No Data Provided for This Section
--- OUTSIDE RECORDS SUMMARY | 2019-12-02 07:35 | XMS REPORT | Encounter Summary ---
Author Author [facility] Organization [facility] Address [address] [place] [address] Phone Unavailable Care Team Providers Care Patient Access Specialist Name Role Phone ADRIEL HERNANDEZ PCP [...] Comments: Obstructive sleep apnea syndrome (SNOMED CT 16781650) PHILIPPE DOUGLASS [facility] IHE Encounter Template Text not used by [facility] Assessments - Encounter Diagnoses This section includes the primary and secondary diag noses documented for the Encounter. Date/Time Primary/Secondary Diagnosis Diagnosis Name Provider Source Mar 21, 2019 10:02 AM PRIMARY Obstructive sleep apnea (a dult) (pediatric) DELM[facility]IMBERLY [facility] Plan of Treatment: Future [...] nts. The data comes from all [facility]. Appointment Date/Time Appointment Type Appointment Facili ty Name Mar 26, 2019 10:00 AM AMBULATORY - NONE ARTUR BLAS [facility] Apr 03, 2019 10:00 AM AMBULATORY - SURGERY ARTUR BLAS [facility] Apr 14, 2019 10:00 AM [facility]ORY [facility] Apr 28, 2019 11:00 AM AMBULATORY - NONE ARTUR BLAS [facility] Jun 25, 2019 11:30 AM AMBULATORY - NONE ARTUR BLAS [facility] Jun 25, 2019 01:15 PM AMBULATORY - MEDICINE ARTUR Shu [facility] Jul 23, 2019 11:00 AM AMBULATORY - NONE ARTUR BLAS [facility] Jul 25, 2019 08:00 AM AMBULATORY - NONE ARTUR BLAS [facility] Aug 07, 2019 10:30 AM AMBULATORY - MEDICINE ARTUR Shu LEVIMila Arora [facility] Active, Pending, and Scheduled Orders This section [...] the Encounter. The data comes from all [facility]. Test Date/Time Test Type Test Details Facility Name Apr 01, 2019 10:33 AM Consult Order [facility] PULMONARY-[id number] Cons Program Instructor's Choice [facility] Surgical Procedures: All associated to the encounter [...] Comment Mar 21, 2019 08:55 AM [facility] HEMOGLOBIN A1C Specimen Type: BLOOD No comment [...] took place. Date/Time Smoking Status/Tobacco Use Comment [facility] it Nov 23, 2017 09:51 AM CURRENT [...] patient. The data comes from a ll ID treatment facilities. It does not list Allergies/ADRs that were removed or entered in error. Some allergies/ADRs may be reported in t he Immunization section. Allergen Event Date Event Type Reaction(s) Severity Source BRILINTA September 08, 2014 Propensity to adverse reactions to drug (diso rder) [facility], [facility] 15 PLAVIX September 08, 2014 Propensity to adverse reactions to drug (diso rder) [facility], [facility] 15 Medications: VA dispensed (-15 months) and Non-VA Documented (Obtained Outside V A) Section Date Range: 1) prescriptions processed by a VA pharmacy in the last 15 m [facility], and 2) all medications recorded in the ID medical record as "non-VA medic ations". Pharmacy terms refer to VA pharmacy's work on prescriptions. VA patient s are advised to take their medications as instructed by their health care team. The data comes from all ID treatment facilities. Glossary of Pharmacy Terms:Active = A prescription that can be filled at the local ID pharmacy.Active: On Hold = An active prescription [...] may be a prescription from either the ID or other providers that was filled outside [...] TEST BLOOD GLUCOSE 50 Dec 19, 2019 [id number] September 04, 2019 PAMELA RAMSEY ACCU-CHEK CHARLES PLUS (GLUCOSE) TEST STRIP Discontinued USE 1 STRIP FOR TESTING TWO TIMES PER WEEK - DIRECTED TO TEST BLOOD GLUCOSE 50 Jul 25, 2019 [id number] Nov 12, 2018 PAMELA RAMSEY ALBUTEROL SO4 90MCG/ACTUAT (CFC-F) INHL,ORAL,6.7GM Active INHALE 2 PUFFS BY ORAL INHALATION EVERY 4 HOURS NEEDED FOR BREATHING. SHAKE WELL. RINSE MOUTHPIECE FREQUENTLY TO PREVENT CLOGGING. USE NEEDED FOR SHORTNESS OF AIR/WHEEZING FOR BREATHING. SHAKE WELL. RINSE MOUTHPIECE FREQUENTLY TO PREVENT CLOGGING. USE NEEDED FOR SHORTNESS OF AIR/WHEEZING 1 Dec 19, 2019 [id number] September 04, 2019 PAMELA RAMSEY ALCOHOL PREP PAD Active USE 1 PAD ON SKIN BIW TO CLEAN AND DISINFECT THE SKIN 200 Sep 29, 2020 [id number] Sep 30, 2019 MAURICIO RANKIN [facility] ALCOHOL PREP PAD Discontinued USE 1 PAD ON SKIN BI W TO CLEAN AND DISINFECT THE SKIN 200 Dec 19, 2019 [id number] Jun 06, 2019 PAMELA RAMSEY [facility] ALCOHOL PREP PAD Discontinued USE 1 PAD ON SKIN BI W TO CLEAN AND DISINFECT THE SKIN 200 Jul 25, 2019 [id number] Nov 12, 2018 PAMELA RAMSEY [facility] ASCORBIC ACID 250MG TAB Non-VA TAKE ONE TABLET BY MOUTH ONCE A DAY Non-VA Documented by: SHANIQUA SCHMIDT nted at: [facility] ASPIRIN 25MG/DIPYRIDAMOLE 200MG CAP,SA Active T CHAPIN 1 CAPSULE BY MOUTH TWO TIMES A DAY - SWALLOW WHOLE. DO NOT CRUSH OR CHEW. FOR RECURRENT TIA/STROKE 180 Dec 19, 2019 [id number] Dec 20, 2018 PAMELA RAMSEY [facility] ASPIRIN 25MG/DIPYRIDAMOLE 200MG CAP,SA Discontinued T CHAPIN 1 CAPSULE BY MOUTH TWO TIMES A DAY - SWALLOW WHOLE. DO NOT CRUSH OR CHEW. FOR RECURRENT TIA/STROKE 180 Feb 06, 2019 [id number] Sep 28, 2018 ZACHARY GRECO [facility] ASPIRIN 81MG TAB,EC Non- VA TAKE ONE TABLET BY MOUTH ONCE A DAY Non-VA Documented by: PADMA LONG nted at: [facility] ATORVASTATIN CA 80MG TAB Active TAKE ONE TABLET BY MOUTH AT BEDTIME FOR CHOLESTEROL - REPORT ANY UNEXPLAINED MUSCLE PAIN/WEAKNESS TO YOUR PROVIDER 90 Dec 19, 2019 [id number] September 04, 2019 PAMELA RAMSEY ATORVASTATIN CA 80MG TAB Discontinued TAKE ONE TABLET BY MOUTH AT BEDTIME FOR CHOLESTEROL - REPORT ANY UNEXPLAINED MUSCLE PAIN/WEAKNESS TO YOUR PROVIDER 90 Dec 20, 2018 [id number] Nov 12, 2018 PAMELA RAMSEY [facility] BUDESONIDE 160MCG/FORMOTEROL FUM 4.5MCG/SPRAY INHL,ORAL,10.2 GM Active INHALE 2 PUFFS BY MOUTH TWO TIMES A DAY FOR BREATHING. SHAKE WELL. RINSE MOUTH AND SPIT AFTER EACH USE. 3 Apr 24, 2020 [id number] August 22, 2019 LISSA OATES [facility] CALCIUM/VITAMIN D TAB No n-VA TAKE BY MOUTH ONCE A DAY Non-V A Documented by: PADMA LONG nted at: [facility] CARBOXYMETHYLCELLULOSE NA 0.5% SOLN,OPH Active INSTILL ONE DROP IN BOTH EYES FOUR TIMES A DAY FOR DRY EYES 15 Feb 01, 2020 [id number] September 03 0 [facility] DICLOFENAC NA 1% GEL,TOP Discontinued APPLY 2 GRAMS A FFECTED AREA TWO TIMES A DAY NEEDED FOR PAIN AND INFLAMMATION. DO NOT EXCEED 16GM DAILY TO ANY AFFECTED JOINT OF LOWER EXTREMITIES. DO NOT EXCEED 8GM DAILY TO ANY AFFECTED JOINT OF UPPER EXTREMITES. DO NOT EXCEED TOTAL DOSE OF 32GM DAILY FOR ALL JOINTS. 100 Oct 31, 2018 [id number] Oct 06, 2018 ANAYELI KIRKPATRICK [facility] DICLOFENAC NA 1% GEL,TOP APPLY 2 GRAMS A FFECTED AREA TWO TIMES A DAY NEEDED FOR PAIN AND INFLAMMATION. DO NOT EXCEED 16GM DAILY TO ANY AFFECTED JOINT OF LOWER EXTREMITIES. DO NOT EXCEED 8GM DAILY TO ANY AFFECTED JOINT OF UPPER EXTREMITES. DO NOT EXCEED TOTAL DOSE OF 32GM DAILY FOR ALL JOINTS. 100 Jan 17, 2019 [id number] Dec 20, 2018 PAMELA RAMSEY FLUTICASONE PROPIONATE 50MCG/SPRAY SOLN,NASAL,16GM Active INSTILL 1 SPRAY IN EACH NOSTRIL ONCE A DAY SHAKE GENTLY BEFORE USE! - MUST BE USED DIRECTED FOR 3 WEEKS TO PROVIDE BENEFIT. * NO EARLY REFILLS * 1UNIT = 30DAYS AT 4 PF/DAY OR 60DAYS AT 2PF/DAY 2 Dec 19, 2019 [id number] August 26, 2019 PAMELA RAMSEY KETOTIFEN 0.025% SOLN,OPH Active INSTILL 1 DROP IN BOTH EYES TWO TIMES A DAY FOR RELIEF OF ALLERGY SYMPTOMS IN EYE(S) 10 Feb 01, 2020 [id number] September 04, 2019 [facility] LANCET,SOFTCLIX Active USE LANCET BIW FOR TESTING BL OOD GLUCOSE DIRECTED 100 Sep 29, 2020 [id number] Sep 30, 2019 MAURIICO RANKIN [facility] LANCET,SOFTCLIX Discontinued USE LANCET BIW FO R TESTING BLOOD GLUCOSE DIRECTED 100 Dec 19, 2019 [id number] Jun 06, 2019 PAMELA RAMSEY LANCET,SOFTCLIX Discontinued USE LANCET BIW FO R TESTING BLOOD GLUCOSE DIRECTED Jul 25, 2019 [id number] Nov 12, 2018 PAMELA RAMSEY LISINOPRIL 40MG TAB Non- VA TAKE ONE-HALF TABLET BY MOUTH EVERY MORNING Non-VA Documented by: PAMELA RAMSEY nted at: [facility] LORATADINE/PSEUDOEPHEDRINE TAB,SA Non-VA TAKE BY MOUTH No n-VA Documented by: JUAN LANG nted at: ARTUR BLAS [facility] ANN [...] ACID (REPLACES ACIPHEX) 180 Dec 19, 2019 [id number] August 26, 2019 PAMELA RAMSEY POLYETHYLENE GLYCOL [...] Non-VA Documented by: KATHERINE MATT nted at: [facility] PREGABALIN 150MG CAP,ORAL Non-VA TAKE 1 CAPSULE BY MOUTH TWO TIMES A DAY Non-VA Docume nted by: PAMELA RAMSEY Docume nted at: [facility] SEMAGLUTIDE INJ,SOLN Non -VA INJECT SUBCUTANEOUSLY EVERY WEEK Non-VA Documented by: ANAYELI KIRKPATRICK Docume nted at: [facility] TERBINAFINE HCL 1% CREAM,TOP Active APPLY LIGHT LY TO AFFECTED AREA TWO TIMES A DAY FOR INFECTION 90 Sep 23, 2020 [id number] Sep 24, 2019 ADRIEL HERNANDEZ UREA 20% CREAM,TOP Active APPLY LIGHTLY (20%) TO AFFECTED AREA TWO TIMES A DAY NEEDED TO PROMOTE HEALING,RUB IN UNTIL COMPLETELY ABSORBED*FOR TOPICAL USE ONLY* APPLY TO BOTH FEET DIRECTED. 90 Sep 25, 2020 [id number] Sep 26, 2019 ADRIEL HERNANDEZ Problems (Conditions): [...] Alcohol intake above recommended sensible limits Active 081434355 PADMA LONG [facility] Allergic conjunctivitis Active 123154108 NINOLELIS[place]TEA Luda [facility] Bilateral senile combined form cataracts of eyes Active [id number] 9108 [facility] Bilateral tinnitus Active [id number] CHASTITY JEAN [facility] Coronary arteriosclerosis Active 27485913 September 08, 2014 Entered By: PADMA LONG Comment: hx of ptca to RCA several yrs. 2014 Entered By: PADMA LONG Comment: heart cath 09/01/14, neg. / previous stent to RCA,, via abida meneses ks HATCHER, JENNEY R [facility] Diabetes mellitus Active 89702113 PAMELA RAMSEY [facility] Disorder of pancreas Active 8547261 September 08, 2014 Entered By: PADMA LONG Comment: 2.5cm low density lseion in bodyMay 2014 Entered By: PADMA LONG Comment: question of communication with pancreatic ductMay 2014 Entered By: PADMA LONG Comment: favored to be cystic pancreatic cancerMay 2014 Entered By: PADMA LONG Comment: per abdominal CT 09/01/14, via mary menesescasar, ks PADMA LONG [facility] Dry eyes Active 385347988 NEDA SHAW [facility] Gastro-esophageal reflux disease without esophagitis ( SNOMED CT 520800072) Active 032167555 [facility]F [facility] History of malignant neoplasm of lung Active 511576734 CHAPO BARRETO Juan M [facility] Hyperlipidemia (SNOMED CT 89689012) Active 18777851 PAMELA RAMSEY Juan M [facility] Lung mass Active 702109867 September 08, 2014 E ntered By: PADMA LONG Comment: 4.5 cm mass, post. segment right upper lobe.September 08, 2014 Entered By: PADAM LONG Comment: mild adenopathy in mediastinum and bilat. hilaMay 2014 Entered By: PADMA LONG Comment: most likely related to lung cancerMay 2014 Entered By: PADMA LONG Comment: per ct angio of chest with contrast 09/01/14,via abida menesesncJun 2014 Entered By: PADMA LONG Comment: per path report- mod. differentiated bronchogenic adenoca. 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 [facility] Pancreatic cyst Active 72731651 JAYLENE GUEVARA [facility] Papilloma of right eyelid Active [id number] [facility]AW [facility] Polyp of colon Active 87072663 Jan 23 Entered By: PADMA LONG Comment: c-scope 01/17/16, multiple benign colonic polypsJun 28, 2017 Entered By: PADMA LONG Comment: c-scope,06/25/17,ks-[facility], three benign polyps- sigmoid colon, transverse colon,cecum. see path report cprs SHARRON TORRES [place] [facility] Pulmonary emphysema Active 14746167 0 BRIANA LESLYE [facility] Sensorineural hearing loss, bilateral Active 185432384 SLEDGCHASTITY Zaragoza Nicol [facility] Snoring Active 55341782 [place] [facility] Type 2 diabetes mellitus without complication Active 887897574 FACUNDO SHAWICINicol Lares [facility] Environmental Allergies (ICD-9-CM 477.9) Inactive 477.9 Dec 18, 2017 PADMA LONG [facility] External hemorrhoids without mention of complication (ICD-9- CM 455.3) Inactive 455.3 Dec 18, 2017 PADMA LONG [facility] Impotence of organic origin (ICD-9-CM 607.84) Inactive 607.84 Dec 18, 2017 PADMA LONG [facility] Screening for Lipoid disorders (ICD-9-CM V77.91) Inactive V77.91 Jan 18, 2007 PADMA LONG [facility] Stye * (ICD-9-CM 373.11) Inactive 373.11 Dec 18, 201 8 Jan 18, 2007 Entered By: PADMA LONG Comment: bilat lower lids, chronic/recurrent PADMA LONG [facility] Tobacco Use Disorder, Continuous Inactive [...] Encounter. The data comes from all [facility] facilities. Date/Time Pathology Report Provider Source [...] 11:11) Microscopic examination is performed. DIAGNOSIS: Specimen: [id number] Spec Type: SURGICAL Abdulkadir: 04/03/19 Rec: 04/03/19-1241 PATHOLOGIC DIAGNOSIS Skin lesion, right upper cheek, biopsy: 1. Seborrheic keratosis, not involving resection margins. 2. Solar elastosis. Skin lesion, right lower mid margin, biopsy: 1. Seborrheic keratosis, with tumor at tissue edge/margin, but with benign features. LL [facility] CODES: 84483/2 at 1239 The gross and microscopic examinations and interpretation were performed at Department of Pathology, [address] [place] [id number]. Slides and paraffin blocks are on file at . =--=--=--=--=--=--=--=--=--=--=--=--=--=--=--=--=--=--=--=--=--=--=--=--=--=-- Performing Laboratory: Surgical Pathology Report Performed By: [facility] [CLIA# [id number]] [address] [place] [address] [address] [place] [address] Encounter Notes: All associated encounter notes This section contains the clinical notes associated to the Encounter. Date/Time Encounter Note(s) Provider Source Mar 21, 2019 09:40 AM PULMONARY PROCEDURE NOTE: [facility] TITLE: PULMONARY PROCEDURE NOTE DATE OF NOTE: MAR 21, 2019@09:40 ENTRY DATE: MAR 21, 2019@09:40:43 AUTHOR: PHILIPPE DOUGLASS COSIGNER: URGENCY: STATUS: COMPLETED SLEEP CLINIC This is a 64 year old male Gilbert known to our [facility] sleep clinic for moderate obstructive sleep apnea, last seen in clinics on 03/21/2018. requested his follow up appointment to be done via telemedicine. Gilbert reports usage of his CPAP machine most [...] WEEK 21 Total Medications MEDICATION ALLERGIES:PLAVIX, BRILINTA: Jayla had a sleep study on 12/26/2017 at [...] pressure set and confirmed with manometer @ 86kuh30 REVIEW OF SYSTEMS: Denies chest pain, shortness [...] ed with manometer @ 10 cmh20. - Gilbert has contact number for respira vin therapist, if problems arise and/or additional supplies. DISPOSITION: Gilbert was provided education on how to contact the Sleep Clinic and the process for ordering supplies was also discussed. Gilbert was discharged to home and was encouraged [...] DOUGLASS APRN Signed: 03/21/2019 10:02 PHILIPPE DOUGLASS [facility]
--- OUTSIDE RECORDS SUMMARY | 2019-12-02 07:35 | XMS REPORT | Encounter Summary ---
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 Date/Time Encounter Type Encounter Description Reason Provider Source Mar 19, 2019 09:17 AM Outpatient Encounter OPHTHALMOLOGY ICD-1 0-CM Z71.89 Other specified counseling with Provider Comments: Other specified Counseling NÉSTOR ZARATE [facility] IHE Encounter Template Text not used by [place] Assessments - Encounter Diagnoses This section includes the primary and secondary diag noses documented for the Encounter. Date/Time Primary/Secondary Diagnosis Diagnosis Name Provider Source Mar 19, 2019 09:18 AM PRIMARY Other specified counseling NÉSTOR SMITH [facility] Plan of Treatment: Future Appointments (+ [...] appointme nts. The data comes from all [facility]. Appointment Date/Time Appointment Type Appointment Facili ty Name Mar 21, 2019 09:15 AM AMBULATORY - NONE [facility] Mar 21, 2019 09:30 AM AMBULATORY - MEDICINE [facility] Mar 21, 2019 09:31 AM AMBULATORY - MEDICINE [facility] Mar 21, 2019 10:00 AM AMBULATORY - MEDICINE [facility] Mar 21, 2019 10:01 AM AMBULATORY - MEDICINE [facility] Mar 26, 2019 10:00 AM [facility] NONE [facility] Apr 03, 2019 10:00 AM AMBULATORY - SURGERY [facility] Apr 14, 2019 10:00 AM AMBULATORY - SURGERY [facility] Apr 28, 2019 11:00 AM AMBULATORY - NONE [facility] Jun 25, 2019 11:30 AM AMBULATORY - NONE [facility] Jun 25, 2019 01:15 PM AMBULATORY - MEDICINE [facility] Jul 23, 2019 11:00 AM AMBULATORY - NONE [facility] Jul 25, 2019 08:00 AM AMBULATORY - NONE [facility] Aug 07, 2019 10:30 AM AMBULATORY - MEDICINE [facility] Active, Pending, and Scheduled Orders [...] the Encounter. The data comes from all [facility]. Test Date/Time Test Type Test Details Facility Name Apr 01, 2019 10:33 AM Consult Order [facility] [id number] Cons Export Clerk's Choice [facility] Surgical Procedures: All associated to the [...] and tobacco- related health factors from the [place] facility where the Encounter took place. Current Smoking Status This section includes the most current smoking, or tobacco -related health factor, from the [place] facility where the Encounter took place. Date/Time Current Smoking Status Comment Facility Jun 26, 2018 02:13 PM [place]-TOBACCO QUIT 15 YRS OR MORE [facility] Tobacco Use History This section includes a history of the smoking, or tobacco -related health factors, that were collected on or before the date of the Encoun ter. The data comes from the [place] facility where the Encounter took place. Date/Time Smoking Status/Tobacco Use Comment [facility] Jun 26, 2018 02:13 PM [place]-TO[place]AC[place] QUIT 15 YRS OR MORE [facility] Jun 27, 2017 01:39 PM NON-TOBACCO [...] patient. The data comes from a [facility] treatment facilities. It does not list Allergies/ADRs that were removed or entered in error. Some allergies/ADRs may be reported in t Immunization section. Allergen Event Date Event Type Reaction(s) Severity Source [place] September 08, 2014 Propensity to adverse reactions to drug (diso rder) [facility] [place] September 08, 2014 Propensity to adverse reactions to drug (diso rder) [facility] Medications: VA dispensed (-15 months) and Non-VA Documented (Obtained Outside V A) Section Date Range: 1) prescriptions processed by a [facility] pharmacy in the [facility], and 2) all medications recorded in the [place] medical record as "non-VA medic ations". Pharmacy terms refer to VA pharmacy's work on prescriptions. VA patient s are advised to take their medications as instructed by their health care team. The data comes from all [place] treatment facilities. Glossary of Pharmacy Terms:Active = A prescription that can be filled at the local [place] pharmacy.Active: On Hold = An active prescription [...] TEST BLOOD GLUCOSE 50 Dec 19, 2019 [id number] September 04, 2019 PAMELA RAMSEY ACCU-CHEK CHARLES PLUS (GLUCOSE) TEST STRIP Discontinued USE 1 STRIP FOR TESTING TWO TIMES PER WEEK - DIRECTED TO TEST BLOOD GLUCOSE 50 Jul 25, 2019 [id number] Nov 12, 2018 PAMELA RAMSEY ALBUTEROL SO4 90MCG/ACTUAT (CFC-F) INHL,ORAL,6.7GM Active INHALE 2 PUFFS BY ORAL INHALATION EVERY 4 HOURS NEEDED FOR BREATHING. SHAKE WELL. RINSE MOUTHPIECE FREQUENTLY TO PREVENT CLOGGING. USE NEEDED FOR SHORTNESS OF AIR/WHEEZING FOR BREATHING. SHAKE WELL. RINSE MOUTHPIECE FREQUENTLY TO PREVENT CLOGGING. USE NEEDED FOR SHORTNESS OF AIR/WHEEZING 1 Dec 19, 2019 [id number] September 04, 2019 PAMELA RAMSEY [facility] ALCOHOL PREP PAD Active USE 1 PAD ON SKIN BIW TO CLEAN AND DISINFECT THE SKIN 200 Sep 29, 2020 [id number] Sep 30, 2019 MAURICIO RANKIN [facility] ALCOHOL PREP PAD Discontinued USE 1 PAD ON SKIN BI W TO CLEAN AND DISINFECT THE SKIN 200 Dec 19, 2019 [id number] Jun 06, 2019 PAMELA RAMSEY [facility] ALCOHOL PREP PAD Discontinued USE 1 PAD ON SKIN BI W TO CLEAN AND DISINFECT THE SKIN 200 Jul 25, 2019 [id number] Nov 12, 2018 PAMELA RAMSEY [facility] ASCORBIC ACID 250MG TAB Non-VA TAKE ONE TABLET BY MOUTH ONCE A DAY Non-VA Documented by: SHANIQUA SCHMIDT nted at: [facility] ASPIRIN 25MG/DIPYRIDAMOLE 200MG CAP,SA Active T CHAPIN 1 CAPSULE BY MOUTH TWO TIMES A DAY - SWALLOW WHOLE. DO NOT CRUSH OR CHEW. FOR RECURRENT TIA/STROKE 180 Dec 19, 2019 [id number] Dec 20, 2018 PAMELA RAMSEY [facility] ASPIRIN 25MG/DIPYRIDAMOLE 200MG CAP,SA Discontinued T CHAPIN 1 CAPSULE BY MOUTH TWO TIMES A DAY - SWALLOW WHOLE. DO NOT CRUSH OR CHEW. FOR RECURRENT TIA/STROKE 180 Feb 06, 2019 [id number] Sep 28, 2018 ZACHARY GRECO ASPIRIN 81MG TAB,EC Non- VA TAKE ONE TABLET BY MOUTH ONCE A DAY Non-VA Documented by: PADMA LONG nted at: [facility] ATORVASTATIN CA 80MG TAB Active TAKE ONE TABLET BY MOUTH AT BEDTIME FOR CHOLESTEROL - REPORT ANY UNEXPLAINED MUSCLE PAIN/WEAKNESS TO YOUR PROVIDER 90 Dec 19, 2019 [id number] September 04, 2019 PAMELA RAMSEY ATORVASTATIN CA 80MG TAB Discontinued TAKE ONE TABLET BY MOUTH AT BEDTIME FOR CHOLESTEROL - REPORT ANY UNEXPLAINED MUSCLE PAIN/WEAKNESS TO YOUR PROVIDER 90 Dec 20, 2018 [id number] Nov 12, 2018 PAMELA RAMSEY BUDESONIDE 160MCG/FORMOTEROL FUM 4.5MCG/SPRAY INHL,ORAL,10.2 GM Active INHALE 2 PUFFS BY MOUTH TWO TIMES A DAY FOR BREATHING. SHAKE WELL. RINSE MOUTH AND SPIT AFTER EACH USE. 3 Apr 24, 2020 [id number] August 22, 2019 [facility] CALCIUM/VITAMIN D TAB No n-VA TAKE BY MOUTH ONCE A DAY Non-V A Documented by: PADMA LONG nted at: [facility] CARBOXYMETHYLCELLULOSE NA 0.5% SOLN,OPH Active INSTILL ONE DROP IN BOTH EYES FOUR TIMES A DAY FOR DRY EYES 15 Feb 01, 2020 [id number] September 03 0 NEDA SHAW [facility] DICLOFENAC NA 1% GEL,TOP Discontinued APPLY 2 GRAMS A FFECTED AREA TWO TIMES A DAY NEEDED FOR PAIN AND INFLAMMATION. DO NOT EXCEED 16GM DAILY TO ANY AFFECTED JOINT OF LOWER EXTREMITIES. DO NOT EXCEED 8GM DAILY TO ANY AFFECTED JOINT OF UPPER EXTREMITES. DO NOT EXCEED TOTAL DOSE OF 32GM DAILY FOR ALL JOINTS. 100 Oct 31, 2018 [id number] Oct 06, 2018 ANAYELI KIRKPATRICK [facility] DICLOFENAC NA 1% GEL,TOP APPLY 2 GRAMS A FFECTED AREA TWO TIMES A DAY NEEDED FOR PAIN AND INFLAMMATION. DO NOT EXCEED 16GM DAILY TO ANY AFFECTED JOINT OF LOWER EXTREMITIES. DO NOT EXCEED 8GM DAILY TO ANY AFFECTED JOINT OF UPPER EXTREMITES. DO NOT EXCEED TOTAL DOSE OF 32GM DAILY FOR ALL JOINTS. 100 Jan 17, 2019 [id number] Dec 20, 2018 PAMELA RAMSEY FLUTICASONE PROPIONATE 50MCG/SPRAY SOLN,NASAL,16GM Active INSTILL 1 SPRAY IN EACH NOSTRIL ONCE A DAY SHAKE GENTLY BEFORE USE! - MUST BE USED DIRECTED FOR 3 WEEKS TO PROVIDE BENEFIT. * NO EARLY REFILLS * 1UNIT = 30DAYS AT 4 PF/DAY OR 60DAYS AT 2PF/DAY 2 Dec 19, 2019 [id number] August 26, 2019 PAMELA RAMSEY [facility] KETOTIFEN 0.025% SOLN,OPH Active INSTILL 1 DROP IN BOTH EYES TWO TIMES A DAY FOR RELIEF OF ALLERGY SYMPTOMS IN EYE(S) Feb 01, 2020 [id number] September 04, 2019 [facility] LANCET,SOFTCLIX Active USE LANCET BIW FOR TESTING BL OOD GLUCOSE DIRECTED 100 Sep 29, 2020 [id number] Sep 30, 2019 MAURICIO RANKIN [facility] LANCET,SOFTCLIX Discontinued USE LANCET BIW FO R TESTING BLOOD GLUCOSE DIRECTED 100 Dec 19, 2019 [id number] Jun 06, 2019 PAMELA RAMSEY [facility] LANCET,SOFTCLIX Discontinued USE LANCET BIW FO R TESTING BLOOD GLUCOSE DIRECTED Jul 25, 2019 [id number] Nov 12, 2018 PAMELA RAMSEY LISINOPRIL 40MG TAB Non- VA TAKE ONE-HALF TABLET BY MOUTH EVERY MORNING Non-VA Documented by: PAMELA RAMSEY nted at: [facility] LORATADINE/PSEUDOEPHEDRINE TAB,SA Non-VA TAKE BY MOUTH No n-VA Documented by: JUAN LANG nted at: [facility] MAGNESIUM OXIDE 400MG TAB Non-VA TAKE [...] ACID (REPLACES ACIPHEX) 180 Dec 19, 2019 [id number] August 26, 2019 PAMELA RAMSEY POLYETHYLENE GLYCOL [...] Documented by: KATHERINE HARDWICK Docume nted at: [facility] PREGABALIN 150MG CAP,ORAL Non-VA TAKE 1 CAPSULE BY MOUTH TWO TIMES A DAY Non-VA Docume nted by: PAMELA RAMSEY Docume nted at: [facility] SEMAGLUTIDE INJ,SOLN Non -VA INJECT SUBCUTANEOUSLY EVERY WEEK Non-VA Documented by: ANAYELI KIRKPATRICK Docume nted at: [facility] TERBINAFINE HCL 1% CREAM,TOP Active APPLY LIGHT LY TO AFFECTED AREA TWO TIMES A DAY FOR INFECTION Sep 23, 2020 [id number] Sep 24, 2019 ADRIEL HERNANDEZ UREA 20% CREAM,TOP Active APPLY LIGHTLY (20%) TO AFFECTED AREA TWO TIMES A DAY NEEDED TO PROMOTE HEALING,RUB IN UNTIL COMPLETELY ABSORBED*FOR TOPICAL USE ONLY* APPLY TO BOTH FEET DIRECTED. Sep 25, 2020 [id number] Sep 26, 2019 ADRIEL HERNANDEZ Problems (Conditions): [...] Alcohol intake above recommended sensible limits Active 262883552 PADMA LONG [facility] Allergic conjunctivitis Active 567128109 BIRCHWOODNEDA [facility] Bilateral senile combined form cataracts of eyes Active 12505064883 9108 BIRCHWOODNEDA [facility] Bilateral tinnitus Active 5645118132552 CHASTITY JEAN [facility] Coronary arteriosclerosis Active 66388803 September 08, 2014 Entered By: PADMA LONG Comment: hx of ptca to RCA several yrs. agoSeptember 08, 2014 Entered By: PADMA LONG Comment: heart cath 09/01/14, neg. / previous stent to RCA,, via abida meneses ks HATCHER, JENNEY R ROBERT [facility] Diabetes mellitus Active 08439513 PAMELA RAMSEY [facility] Disorder of pancreas Active 9689577 September 08, 2014 Entered By: PADMA LONG Comment: 2.5cm low density lseion in bodyMay 2014 Entered By: PADMA LONG Comment: question of communication with pancreatic ductMay 2014 Entered By: PADMA LONG Comment: favored to be cystic pancreatic cancerMay 2014 Entered By: PADMA LONG Comment: per abdominal CT 09/01/14, via abida meneses ks FRAZIER, JAY J [facility] Dry eyes Active 939424967 NEDA SHAW Juan M [facility] Gastro-esophageal reflux disease without esophagitis ( SNOMED CT 141921295) Active 735927473 ALF GUEVARA [facility] History of malignant neoplasm of lung Active 957681198 CHAPO BARRETO [facility] Hyperlipidemia (SNOMED CT 07475492) Active 96004032 PAMELA RAMSEY [facility] Lung mass Active 174738887 September 08, 2014 E ntered By: PADMA [...] report- mod. differentiated bronchogenic adenoca. 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 Active 37876149 KATHERINE HARDWICK [facility] Obesity Active 776169199 [facility] Obstructive sleep apnea syndrome (SNOMED CT 88374359) Active 183179 015 PHILIPPE DOUGLASS [facility] Pancreatic cyst Active 52968322 JAYLENE GUEVARA [facility] Papilloma of right eyelid Active 693273138000718 NEDA SHAW [facility] Polyp of colon Active 36735526 Jan 23 Entered By: PADMA LONG Comment: c-scope 01/17/16, multiple benign colonic polypsJun 28, 2017 Entered By: PADMA LONG Comment: c-scope,06/25/17,[facility], three benign polyps- sigmoid colon, transverse colon,cecum. see path report cprs SHARRON TORRES [facility] Pulmonary emphysema Active 78227337 0 BRIANA GAVIN [facility] Sensorineural hearing loss, bilateral Active 278179091 CHASTITY JEAN [facility] Snoring Active 21453073 SONG BULLOCK [facility] Type 2 diabetes mellitus without complication Active 202673704 COLINNEDA [facility] Environmental Allergies (ICD-9-CM 477.9) Inactive 477.9 Dec 18, 2017 PADMA LONG [facility] External hemorrhoids without mention of complication (ICD-9- CM 455.3) Inactive 455.3 Dec 18, 2017 PADMA LONG [facility] Impotence of organic origin (ICD-9-CM 607.84) Inactive 607.84 Dec 18, 2017 PADMA LONG [facility] Screening for Lipoid disorders (ICD-9-CM V77.91) Inactive V77.91 Jan 18, 2007 [facility] LONG [facility] Stye * (ICD-9-CM 373.11) Inactive 373.11 Dec 18, 201 8 Jan 18, 2007 Entered By: PADMA LONG Comment: bilat lower lids, chronic/recurrent [facility] Tobacco Use Disorder, Continuous Inactive 305.1 Dec 18, 2017 Jan 18, 2007 Entered By: PADMA LONG Comment: one ppd PADMA LONG [facility] Radiology Reports: +/- 30 days of [...] 11:11) Microscopic examination is performed. DIAGNOSIS: Specimen: [id number] Spec Type: SURGICAL Abdulkadir: 04/03/19 Rec: 04/03/19-1241 PATHOLOGIC DIAGNOSIS Skin lesion, right upper cheek, biopsy: 1. Seborrheic keratosis, not involving resection margins. 2. Solar elastosis. Skin lesion, right lower mid margin, biopsy: 1. Seborrheic keratosis, with tumor at tissue edge/margin, but with benign features. LL COPIES TO: KATHERINE HARDWICK [facility] PATHOLOGIST CODES: 84061/2 at 1235 The gross and microscopic examinations and interpretation were performed at [facility] Department of Pathology, [address] [place] [id number]. Slides and paraffin blocks are on file at [facility]. =--=--=--=--=--=--=--=--=--=--=--=--=--=--=--=--=--=--=--=--=--=--=--=--=--=-- Performing Laboratory: Surgical Pathology Report Performed By: [facility] [CLIA# [id number]] [address] [place] [id number] [facility] Encounter Notes: All associated encounter notes This section contains the clinical notes associated to the Encounter. Date/Time Encounter Note(s) Provider Source Mar 19, 2019 09:18 AM PROCEDURE NOTE: [facility] STANDARD TITLE: PROCEDURE NOTE DATE OF NOTE: MAR 19, 2019@09:18 ENTRY DATE: MAR 19, 2019@09:19:02 AUTHOR: NÉSTOR ZARATE EXP COSIGNER: URGENCY: STATUS: COMPLETED [facility] [address], [address] This letter contains your preoperative instructions. You are scheduled for your procedure with Dr. Hardwick. Your Procedure Date is: March @ 1000 Your Arrival time is: 0930 *You are to arrive at the [facility] on the 2nd floor of [place] [address] at the requested time above. *Your procedure [...] please call the eye clinic @ x [phone]. Sincerely, Néstor Zarate RN [facility] [phone] [id number] [facility] // NÉSTOR ZARATE RN Signed: 03/19/2019 09:19 NÉSTOR ZARATE [facility] Mar 19, 2019 09:17 AM PROCEDURE NOTE: LOCAL TITLE: NM-AMBULATORY PROCEDURE SCHEDULING STANDARD TITLE: PROCEDURE NOTE DATE [...] the [facility] Room [address], 2nd floor [place] [address] Appt. and surgery dates and times were [...] Néstor Zarate RN [facility] [phone]. [phone] Artur CARRASQUILLO /gisell/ NÉSTOR ZARATE RN Signed: 03/19/2019 09:18 NÉSTOR ZARATE [facility]
--- OUTSIDE RECORDS SUMMARY | 2019-12-02 07:36 | XMS REPORT ---
Author Author Department [facility] HERBERTH kline Organization [facility] Address [address] [place] [address] Phone Unavailable Care Team Providers Care Roll Off Driver Name Role Phone MARYADRIEL PCP Unavailable Insurance Providers: All historical and current No Data Provided for This Section Selected Encounter This section includes the information on record at [place] for the Encounter. Date/Time Encounter Type Encounter Description Reason Provider Source Jan 06, 2019 08:06 AM Outpatient Encounter ADMIN PAT ACTIVTIES (MASNO NCT) [facility] 15 IHE Encounter Template Text not used by [place] Assessments - Encounter Diagnoses No Data Provided [...] appointme nts. The data comes from all [place] treatment facilities. Appointment Date/Time Appointment Type Appointment Facili ty Name Jan 31, 2019 09:00 AM AMBULATORY - MEDICINE [facility] Mar 10, 2019 12:30 PM AMBULATORY - SURGERY [facility] Mar 21, 2019 09:15 AM AMBULATORY - NONE [facility] Mar 21, 2019 09:30 AM AMBULATORY - MEDICINE [facility] Mar 21, 2019 09:31 AM AMBULATORY - MEDICINE [facility] Mar 21, 2019 10:00 AM AMBULATORY - MEDICINE [facility] Mar 21, 2019 10:01 AM AMBULATORY - MEDICINE ARTUR BLAS [facility] Mar 26, 2019 10:00 AM AMBULATORY - NONE ARTUR BLAS [facility] Apr 03, 2019 10:00 AM AMBULATORY - SURGERY ARTUR CARRASQUILLO Apr 14, 2019 10:00 AM AMBULATORY - SURGERY [facility] Apr 28, 2019 11:00 AM AMBULATORY - NONE ARTUR BLAS [facility] Jun 25, 2019 11:30 AM AMBULATORY - NONE ARTUR BLAS [facility] Jun 25, 2019 01:15 PM AMBULATORY - MEDICINE ARTUR BLAS [facility] Surgical Procedures: All associated to the [...] Dec 18, 2018 08:45 AM [facility] CBC & DIFF Specimen Type: BLOOD [...] 0.4 % Dec 18, 2018 08:45 AM [employer] [facility] COMPREHENSIVE METABOLIC PA KELLE Specimen Type: [...] EGFR >60 Dec 18, 2018 08:45 AM [employer] [facility] LIPID PROFILE(HDL,TRIG,CHO L,LDL) Specimen Type: PLASMA Comment: For eGFR: eGFR results >60 are imprecise. Many variables affect the calculated result. Interpretation of eGFR results >60 must be monitored over time. CHOLESTEROL 172 mg/dL 0-200 TRIGS 190 mg/dL H 0-150 HDL-CHOLESTEROL 40 mg/dL >40 LDL (CALC) 94 mg/dL 0-99.9 Dec 18, 2018 08:45 AM [employer] PROSTATIC SPECIFIC ANTIGEN (TOTAL) Specimen Type: SERUM No comment entered. PROSTATIC SPECIFIC ANTIGEN(TOTAL) 1.3 ng/mL 0-4 Dec 18, 2018 08:45 AM [employer] HEMOGLOBIN A1C Specimen Type: BLOOD No comment [...] Negative Negative Dec 18, 2018 08:45 AM [employer] MICROALBUMIN (ANANT,WI) RANDO M URINE Specimen Type: URINE Comment: Microalbumin is below the linearity of the instrument, unable to calculate the albumin/creatinine ratio. *MICROALBUMIN,RAND < 5 ug/mL *MICROALB/CREAT canc mcg/mg cr *PROT/DESKTOP SPECIALIST RATIO 0.1 *UR PROTEIN 8 mg/dL *UR [...] to adverse reactions to drug (diso rder) [facility] PLAVIX September 08, 2014 Propensity to adverse reactions to drug (diso rder) [facility] Medications: [facility] dispensed [...] TEST BLOOD GLUCOSE 50 Dec 19, 2019 [id number] September 04, 2019 PAMELA RAMSEY ACCU-CHEK CHARLES PLUS (GLUCOSE) TEST STRIP Discontinued USE 1 STRIP FOR TESTING TWO TIMES PER WEEK - DIRECTED TO TEST BLOOD GLUCOSE 50 Jul 25, 2019 [id number] Nov 12, 2018 PAMELA RAMSEY ALBUTEROL SO4 90MCG/ACTUAT (CFC-F) INHL,ORAL,6.7GM Active INHALE 2 PUFFS BY ORAL INHALATION EVERY 4 HOURS NEEDED FOR BREATHING. SHAKE WELL. RINSE MOUTHPIECE FREQUENTLY TO PREVENT CLOGGING. USE NEEDED FOR SHORTNESS OF AIR/WHEEZING FOR BREATHING. SHAKE WELL. RINSE MOUTHPIECE FREQUENTLY TO PREVENT CLOGGING. USE NEEDED FOR SHORTNESS OF AIR/WHEEZING 1 Dec 19, 2019 [id number] September 04, 2019 PAMELA RAMSEY [facility] ALCOHOL PREP PAD Active USE 1 PAD ON SKIN BIW TO CLEAN AND DISINFECT THE SKIN 200 Sep 29, 2020 [id number] Sep 30, 2019 MAURICIO RANKIN [facility] ALCOHOL PREP PAD Discontinued USE 1 PAD ON SKIN BI W TO CLEAN AND DISINFECT THE SKIN 200 Dec 19, 2019 [id number] Jun 06, 2019 PAMELA RAMSEY [facility] ALCOHOL PREP PAD Discontinued USE 1 PAD ON SKIN BI W TO CLEAN AND DISINFECT THE SKIN 200 Jul 25, 2019 [id number] Nov 12, 2018 PAMELA RAMSEY [facility] ASCORBIC ACID 250MG TAB Non-VA TAKE ONE TABLET BY MOUTH ONCE A DAY Non-VA Documented by: SHANIQUA SCHMIDT nted at: [facility] ASPIRIN 25MG/DIPYRIDAMOLE 200MG CAP,SA Active T CHAPIN 1 CAPSULE BY MOUTH TWO TIMES A DAY - SWALLOW WHOLE. DO NOT CRUSH OR CHEW. FOR RECURRENT TIA/STROKE 180 Dec 19, 2019 [id number] Dec 20, 2018 [facility]ELA RAMSEY [facility] ASPIRIN 25MG/DIPYRIDAMOLE 200MG CAP,SA Discontinued T CHAPIN 1 CAPSULE BY MOUTH TWO TIMES A DAY - SWALLOW WHOLE. DO NOT CRUSH OR CHEW. FOR RECURRENT TIA/STROKE 180 Feb 06, 2019 [id number] Sep 28, 2018 ZACHARY GRECO ASPIRIN 81MG TAB,EC Non- [facility] TAKE ONE TABLET BY MOUTH ONCE A DAY Non-VA Documented by: PADMA LONG nted at: [facility] ATORVASTATIN CA 80MG TAB Active TAKE ONE TABLET BY MOUTH AT BEDTIME FOR CHOLESTEROL - REPORT ANY UNEXPLAINED MUSCLE PAIN/WEAKNESS TO YOUR PROVIDER 90 Dec 19, 2019 [id number] September 04, 2019 PAMELA RAMSEY ATORVASTATIN CA 80MG TAB Discontinued TAKE ONE TABLET BY MOUTH AT BEDTIME FOR CHOLESTEROL - REPORT ANY UNEXPLAINED MUSCLE PAIN/WEAKNESS TO YOUR PROVIDER 90 Dec 20, 2018 [id number] Nov 12, 2018 PAMELA RAMSEY BUDESONIDE 160MCG/FORMOTEROL FUM 4.5MCG/SPRAY INHL,ORAL,10.2 GM Active INHALE 2 PUFFS BY MOUTH TWO TIMES A DAY FOR BREATHING. SHAKE WELL. RINSE MOUTH AND SPIT AFTER EACH USE. 3 Apr 24, 2020 [id number] August 22, 2019 [facility] OATES [facility] CALCIUM/VITAMIN D TAB No n-VA TAKE BY MOUTH ONCE A DAY Non-V A Documented by: PADMA LONG nted at: [facility] CARBOXYMETHYLCELLULOSE NA 0.5% SOLN,OPH Active INSTILL ONE DROP IN BOTH EYES FOUR TIMES A DAY FOR DRY EYES 15 Feb 01, 2020 [id number] September 03 0 NEDA SHAW [facility] DICLOFENAC NA 1% GEL,TOP Discontinued APPLY 2 GRAMS A FFECTED AREA TWO TIMES A DAY NEEDED FOR PAIN AND INFLAMMATION. DO NOT EXCEED 16GM DAILY TO ANY AFFECTED JOINT OF LOWER EXTREMITIES. DO NOT EXCEED 8GM DAILY TO ANY AFFECTED JOINT OF UPPER EXTREMITES. DO NOT EXCEED TOTAL DOSE OF 32GM DAILY FOR ALL JOINTS. 100 Oct 31, 2018 [id number] Oct 06, 2018 ANAYELI KIRKPATRICK [facility] DICLOFENAC NA 1% GEL,TOP APPLY 2 GRAMS A FFECTED AREA TWO TIMES A DAY NEEDED FOR PAIN AND INFLAMMATION. DO NOT EXCEED 16GM DAILY TO ANY AFFECTED JOINT OF LOWER EXTREMITIES. DO NOT EXCEED 8GM DAILY TO ANY AFFECTED JOINT OF UPPER EXTREMITES. DO NOT EXCEED TOTAL DOSE OF 32GM DAILY FOR ALL JOINTS. 100 Jan 17, 2019 [id number] Dec 20, 2018 PAMELA RAMSEY FLUTICASONE PROPIONATE 50MCG/SPRAY SOLN,NASAL,16GM Active INSTILL 1 SPRAY IN EACH NOSTRIL ONCE A DAY SHAKE GENTLY BEFORE USE! - MUST BE USED DIRECTED FOR 3 WEEKS TO PROVIDE BENEFIT. * NO EARLY REFILLS * 1UNIT = 30DAYS AT 4 PF/DAY OR 60DAYS AT 2PF/DAY 2 Dec 19, 2019 [id number] August 26, 2019 PAMELA RAMSEY KETOTIFEN 0.025% SOLN,OPH Active INSTILL 1 DROP IN BOTH EYES TWO TIMES A DAY FOR RELIEF OF ALLERGY SYMPTOMS IN EYE(S) 10 Feb 01, 2020 [id number] September 04, 2019 NEDA SHAW [facility] LANCET,SOFTCLIX Active USE LANCET BIW FOR TESTING BL OOD GLUCOSE DIRECTED 100 Sep 29, 2020 [id number] Sep 30, 2019 MAURICIO RANKIN [facility] LANCET,SOFTCLIX Discontinued USE LANCET BIW FO R TESTING BLOOD GLUCOSE DIRECTED 100 Dec 19, 2019 [id number] Jun 06, 2019 [facility]ELA RAMSE[facility] LANCET,SOFTCLIX Discontinued USE LANCET BIW FO R TESTING BLOOD GLUCOSE DIRECTED 100 Jul 25, 2019 [id number] Nov 12, 2018 PAMELA RAMSEY LISINOPRIL 40MG TAB Non- [place] TAKE ONE-HALF TABLET BY MOUTH EVERY MORNING Non-VA Documented by: PAMELA RAMSEY nted at: [facility] LORATADINE/PSEUDOEPHEDRINE TAB,SA Non-VA TAKE BY MOUTH No n-VA Documented by: JUAN LANG nted at: ARTUR BLAS [facility] MAGNESIUM OXIDE 400MG TAB Non-VA TAKE [...] ACID (REPLACES ACIPHEX) 180 Dec 19, 2019 [id number] August 26, 2019 PAMELA RAMSEY POLYETHYLENE GLYCOL [...] Documented by: KATHERINE MATT Docume nted at: [facility] PREGABALIN 150MG CAP,ORAL Non-VA TAKE 1 CAPSULE BY MOUTH TWO TIMES A DAY Non-VA Docume nted by: PAMELA RAMSEY Docume nted at: [facility] SEMAGLUTIDE INJ,SOLN Non -VA INJECT SUBCUTANEOUSLY EVERY WEEK Non-VA Documented by: ANAYELI KIRKPATRICK Docume nted at: [facility] TERBINAFINE HCL 1% CREAM,TOP Active APPLY LIGHT LY TO AFFECTED AREA TWO TIMES A DAY FOR INFECTION Sep 23, 2020 [id number] Sep 24, 2019 ADRIEL HERNANDEZ UREA 20% CREAM,TOP Active APPLY LIGHTLY (20%) TO AFFECTED AREA TWO TIMES A DAY NEEDED TO PROMOTE HEALING,RUB IN UNTIL COMPLETELY ABSORBED*FOR TOPICAL USE ONLY* APPLY TO BOTH FEET DIRECTED. Sep 25, 2020 [id number] Sep 26, 2019 ADRIEL HERNANDEZ Problems (Conditions): [...] Alcohol intake above recommended sensible limits Active 616458501 [facility] Allergic conjunctivitis Active 693822477 NEDA SHAW [facility] Bilateral senile combined form cataracts of eyes Active [id number] 9108 AHMEEKNEDA [facility] Bilateral tinnitus Active [id number] [facility] Coronary arteriosclerosis Active [id number] September 08, 2014 Entered By: PADMA LONG Comment: hx of ptca to RCA several yrs. agoSeptember 08, 2014 Entered By: PADMA LONG Comment: heart cath 09/01/14, neg. / previous stent to RCA,, via abida meneses ks HATCHER, JENNEY R ROBERT [facility] Diabetes mellitus Active 38402644 PAMELA RAMSEY [facility] Disorder of pancreas Active 1555033 September 08, 2014 Entered By: PADMA LONG Comment: 2.5cm low density lseion in bodyMay 2014 Entered By: PADMA LONG Comment: question of communication with pancreatic ductMay 2014 Entered By: PADMA LONG Comment: favored to be cystic pancreatic cancerMay 2014 Entered By: PADMA LONG Comment: per abdominal CT 09/01/14, via abida meneses ks FRAZIER, JAY J [facility] Dry eyes Active 929513903 NEDA SHAW [facility] Gastro-esophageal reflux disease without esophagitis ( SNOMED CT 187034832) Active 988397439 ALF GUEVARA [facility] History of malignant neoplasm of lung Active 201194326 [facility] Hyperlipidemia (SNOMED CT 59882949) Active 86579213 PAMELA RAMSEY [facility] Lung mass Active 295369236 September 08, 2014 E ntered By: PADMA LONG Comment: 4.5 cm mass, post. segment right upper lobe.September 08, 2014 Entered By: PADMA LONG Comment: mild adenopathy in mediastinum and bilat. hilaMa2014 Entered By: PADMA LONG Comment: most likely related to lung cancerMa2014 Entered By: PADMA LONG Comment: per ct angio of chest with contrast 09/01/14,via abida menesesorJun 2014 Entered By: PADMA LONG Comment: per path report- mod. differentiated bronchogenic adenoca. 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 Active 43349092 KATHERINE MATT [facility] Obesity Active 405192878 [facility] Obstructive sleep apnea syndrome (SNOMED CT 28975803) Active 692472 015 [facility] Pancreatic cyst Active 98998172 JAYLENE [facility] Papilloma of right eyelid Active 883682290085458 N[facility]A SHAW [facility] Polyp of colon Active 74218583 Jan 23 Entered By: PADMA LONG Comment: c-scope 01/17/16, multiple benign colonic polypsJun 28, 2017 Entered By: PADMA LONG Comment: c-scope,06/25/17,[facility] thumb region, three benign polyps- sigmoid colon, transverse colon,cecum. see path report cprs SHARRON TORRES [facility] Pulmonary emphysema Active 53740260 0 BRIANA GAVIN [facility] Sensorineural hearing loss, bilateral Active 258117850 [facility] JE[facility] Snoring Active 87850748 [facility] Type 2 diabetes mellitus without complication Active 087525248 NEDA SHAW [facility] Environmental Allergies (ICD-9-CM 477.9) Inactive 477.9 Dec 18, 2017 PADMA LONG [facility] External hemorrhoids without mention of complication (ICD-9- CM 455.3) Inactive 455.3 Dec 18, 2017 [facility] Impotence of organic origin (ICD-9-CM 607.84) Inactive 607.84 Dec 18, 2017 PADMA LONG [facility] Screening for Lipoid disorders (ICD-9-CM V77.91) Inactive V77.91 Jan 18, 2007 [facility] Stye * (ICD-9-CM 373.11) Inactive 373.11 Dec 18, 201 8 Jan 18, 2007 Entered By: PADMA LONG Comment: bilat lower lids, chronic/recurrent PADMA LONG Juan M [facility] Tobacco Use Disorder, Continuous Inactive 305.1 Dec 18, 2017 Jan 18, 2007 Entered By: PADMA LONG Comment: one ppd PADMA LONG [facility] Radiology Reports: +/- 30 days of [...] MUNGUIA MSA Signed: 07/09/2019 08:08 MADALYN MUNGUIA [facility]
--- OUTSIDE RECORDS SUMMARY | 2019-12-02 07:36 | XMS REPORT | Encounter Summary ---
Author Author Department of [facility] Organization [facility] Address [address] [place] [address] Phone Unavailable Care Team Providers Care Legal Counsel Name Role Phone ADRIEL HERNANDEZ PCP Unavailable Insurance Providers: All historical and current No Data Provided for This Section Selected Encounter This section includes the information on record at [place] for the Encounter. Date/Time Encounter Type Encounter Description Reason Provider Source Dec 24, 2018 10:11 AM Outpatient Encounter ADMIN PAT ACTIVTIES (CARY[place] NCT) [facility] IHE Encounter Template Text not [...] Jan 06, 2019 11:00 AM AMBULATORY - [facility] ARTUR BLAS [facility] Jan 31, 2019 09:00 AM AMBULATORY - MEDICINE [facility] Mar 10, 2019 12:30 PM AMBULATORY - SURGERY [facility] Mar 21, 2019 09:15 AM AMBULATORY - NONE [facility] Mar 21, 2019 09:30 AM AMBULATORY - MEDICINE [facility] Mar 21, 2019 09:31 AM AMBULATORY - MEDICINE ARTUR BLAS [facility] Mar 21, 2019 10:00 AM AMBULATORY - MEDICINE [facility] Mar 21, 2019 10:01 AM AMBULATORY - MEDICINE ARTUR BLAS [facility] Mar 26, 2019 10:00 AM AMBULATORY - NONE [facility] Apr 03, 2019 10:00 AM AMBULATORY - SURGERY [facility] Apr 14, 2019 10:00 AM AMBULATORY - SURGERY [facility] Apr 28, 2019 11:00 AM AMBULATORY - NONE ARTUR BLAS [facility] Surgical Procedures: All associated to the [...] Range Comment Dec 18, 2018 08:45 AM [facility] CBC & DIFF Specimen Type: [...] % Dec 18, 2018 08:45 AM [facility] COMPREHENSIVE METABOLIC PA KELLE Specimen Type: [...] >60 Dec 18, 2018 08:45 AM [facility] LIPID PROFILE(HDL,TRIG,CHO L,LDL) Specimen Type: PLASMA Comment: For eGFR: eGFR results >60 are imprecise. Many variables affect the calculated result. Interpretation of eGFR results >60 must be monitored over time. CHOLESTEROL 172 mg/dL 0-200 TRIGS 190 mg/dL H 0-150 HDL-CHOLESTEROL 40 mg/dL >40 LDL (CALC) 94 mg/dL 0-99.9 Dec 18, 2018 08:45 AM [facility] PROSTATIC SPECIFIC ANTIGEN (TOTAL) Specimen Type: SERUM No comment entered. PROSTATIC SPECIFIC ANTIGEN(TOTAL) 1.3 ng/mL 0-4 Dec 18, 2018 08:45 AM [facility] HEMOGLOBIN A1C Specimen Type: BLOOD No [...] < 5 ug/mL *MICROALB/CREAT canc mcg/mg cr *PROT/EXTENSION SERVICE SPECIALIST RATIO 0.1 *UR PROTEIN 8 mg/dL [...] took place. Date/Time Smoking Status/Tobacco Use Comment [facility] it Nov 23, 2017 09:51 AM CURRENT TOBACCO USER (READY TO QUIT) [facility] Nov 23, 2017 09:51 AM TOBACCO CESSATION REFERRAL DECLINED [facility] Nov 23, 2017 09:51 AM TOBACCO [...] 01, 2005 08:32 AM NON-TOBACCO USER [facility] Advance Directives: All historical and current [...] to adverse reactions to drug (diso rder) [facility] 15 PLAVIX September 08, 2014 Propensity to adverse reactions to drug (diso rder) [facility] 15 Medications: [facility] dispensed (-15 months) and [...] TEST BLOOD GLUCOSE 50 Dec 19, 2019 [id number] September 04, 2019 PAMELA RAMSEY ACCU-CHEK CHARLES PLUS (GLUCOSE) TEST STRIP Discontinued USE 1 STRIP FOR TESTING TWO TIMES PER WEEK - DIRECTED TO TEST BLOOD GLUCOSE 50 Jul 25, 2019 [id number] Nov 12, 2018 PAMELA RAMSEY ALBUTEROL SO4 90MCG/ACTUAT (CFC-F) INHL,ORAL,6.7GM Active INHALE 2 PUFFS BY ORAL INHALATION EVERY 4 HOURS NEEDED FOR BREATHING. SHAKE WELL. RINSE MOUTHPIECE FREQUENTLY TO PREVENT CLOGGING. USE NEEDED FOR SHORTNESS OF AIR/WHEEZING FOR BREATHING. SHAKE WELL. RINSE MOUTHPIECE FREQUENTLY TO PREVENT CLOGGING. USE NEEDED FOR SHORTNESS OF AIR/WHEEZING 1 Dec 19, 2019 [id number] September 04, 2019 PAMELA RAMSEY ALCOHOL PREP PAD Active USE 1 PAD ON SKIN BIW TO CLEAN AND DISINFECT THE SKIN 200 Sep 29, 2020 [id number] Sep 30, 2019 MAURICIO RANKIN ALCOHOL PREP PAD Discontinued USE 1 PAD ON SKIN BI W TO CLEAN AND DISINFECT THE SKIN 200 Dec 19, 2019 [id number] Jun 06, 2019 PAMELA RAMSEY ALCOHOL PREP PAD Discontinued USE 1 PAD ON SKIN BI W TO CLEAN AND DISINFECT THE SKIN 200 Jul 25, 2019 [id number] Nov 12, 2018 PAMELA RAMSEY ASCORBIC ACID 250MG TAB Non-VA TAKE ONE TABLET BY MOUTH ONCE A DAY Non-VA Documented by: SHANIQUA SCHMIDT nted at: [facility] ASPIRIN 25MG/DIPYRIDAMOLE 200MG CAP,SA Active T CHAPIN 1 CAPSULE BY MOUTH TWO TIMES A DAY - SWALLOW WHOLE. DO NOT CRUSH OR CHEW. FOR RECURRENT TIA/STROKE 180 Dec 19, 2019 [id number] Dec 20, 2018 PAMELA RAMSEY ASPIRIN 25MG/DIPYRIDAMOLE 200MG CAP,SA Discontinued T CHAPIN 1 CAPSULE BY MOUTH TWO TIMES A DAY - SWALLOW WHOLE. DO NOT CRUSH OR CHEW. FOR RECURRENT TIA/STROKE 180 Feb 06, 2019 [id number] Sep 28, 2018 ZACH[facility] GRECO [facility] ASPIRIN 81MG TAB,EC Non- [facility] TAKE ONE TABLET BY MOUTH ONCE A DAY Non-VA Documented by: PADMA LONG nted at: [facility] ATORVASTATIN CA 80MG TAB Active TAKE ONE TABLET BY MOUTH AT BEDTIME FOR CHOLESTEROL - REPORT ANY UNEXPLAINED MUSCLE PAIN/WEAKNESS TO YOUR PROVIDER 90 Dec 19, 2019 [id number] September 04, 2019 PAMELA RAMSEY ATORVASTATIN CA 80MG TAB Discontinued TAKE ONE TABLET BY MOUTH AT BEDTIME FOR CHOLESTEROL - REPORT ANY UNEXPLAINED MUSCLE PAIN/WEAKNESS TO YOUR PROVIDER 90 Dec 20, 2018 [id number] Nov 12, 2018 PAMELA RAMSEY BUDESONIDE 160MCG/FORMOTEROL FUM 4.5MCG/SPRAY INHL,ORAL,10.2 GM Active INHALE 2 PUFFS BY MOUTH TWO TIMES A DAY FOR BREATHING. SHAKE WELL. RINSE MOUTH AND SPIT AFTER EACH USE. 3 Apr 24, 2020 [id number] August 22, 2019 LISSA OATES [facility] CALCIUM/VITAMIN D TAB No n-VA TAKE BY MOUTH ONCE A DAY Non-V A Documented by: PADMA LONG nted at: [facility] CARBOXYMETHYLCELLULOSE NA 0.5% SOLN,OPH Active INSTILL ONE DROP IN BOTH EYES FOUR TIMES A DAY FOR DRY EYES Feb 01, 2020 [id number] September 03 0 [facility] DICLOFENAC NA 1% GEL,TOP Discontinued APPLY 2 GRAMS A FFECTED AREA TWO TIMES A DAY NEEDED FOR PAIN AND INFLAMMATION. DO NOT EXCEED 16GM DAILY TO ANY AFFECTED JOINT OF LOWER EXTREMITIES. DO NOT EXCEED 8GM DAILY TO ANY AFFECTED JOINT OF UPPER EXTREMITES. DO NOT EXCEED TOTAL DOSE OF 32GM DAILY FOR ALL JOINTS. 100 Oct 31, 2018 [id number] Oct 06, 2018 [facility] DICLOFENAC NA 1% GEL,TOP APPLY 2 GRAMS A FFECTED AREA TWO TIMES A DAY NEEDED FOR PAIN AND INFLAMMATION. DO NOT EXCEED 16GM DAILY TO ANY AFFECTED JOINT OF LOWER EXTREMITIES. DO NOT EXCEED 8GM DAILY TO ANY AFFECTED JOINT OF UPPER EXTREMITES. DO NOT EXCEED TOTAL DOSE OF 32GM DAILY FOR ALL JOINTS. 100 Jan 17, 2019 [id number] Dec 20, 2018 PAMELA RAMSEY FLUTICASONE PROPIONATE 50MCG/SPRAY SOLN,NASAL,16GM Active INSTILL 1 SPRAY IN EACH NOSTRIL ONCE A DAY SHAKE GENTLY BEFORE USE! - MUST BE USED DIRECTED FOR 3 WEEKS TO PROVIDE BENEFIT. * NO EARLY REFILLS * 1UNIT = 30DAYS AT 4 PF/DAY OR 60DAYS AT 2PF/DAY 2 Dec 19, 2019 [id number] August 26, 2019 PAMELA RAMSEY KETOTIFEN 0.025% SOLN,OPH Active INSTILL 1 DROP IN BOTH EYES TWO TIMES A DAY FOR RELIEF OF ALLERGY SYMPTOMS IN EYE(S) Feb 01, 2020 [id number] September 04, 2019 [facility] LANCET,SOFTCLIX Active USE LANCET BIW FOR TESTING BL OOD GLUCOSE DIRECTED Sep 29, 2020 [id number] Sep 30, 2019 [facility] LANCET,SOFTCLIX Discontinued USE LANCET BIW FO R TESTING BLOOD GLUCOSE DIRECTED Dec 19, 2019 [id number] Jun 06, 2019 PAMELA RAMSEY LANCET,SOFTCLIX Discontinued USE LANCET BIW FO R TESTING BLOOD GLUCOSE DIRECTED Jul 25, 2019 [id number] Nov 12, 2018 PAMELA RAMSEY LISINOPRIL 40MG TAB Non- [facility] TAKE ONE-HALF TABLET BY MOUTH EVERY MORNING Non-VA Documented by: PAMELA RAMSEY nted at: [facility] LORATADINE/PSEUDOEPHEDRINE TAB,SA Non-VA TAKE BY MOUTH No n-VA Documented by: JUAN LANG nted at: [facility] BL[facility] [...] ACID (REPLACES ACIPHEX) 180 Dec 19, 2019 [id number] August 26, 2019 PAMELA RAMSEY POLYETHYLENE GLYCOL [...] Non-VA Documented by: KATHERINE MATT nted at: [facility] PREGABALIN 150MG CAP,ORAL Non-VA TAKE 1 CAPSULE BY MOUTH TWO TIMES A DAY Non-VA Docume nted by: PAMELA RAMSEY nted at: [facility] SEMAGLUTIDE INJ,SOLN Non -VA INJECT SUBCUTANEOUSLY EVERY WEEK Non-VA Documented by: ANAYELI KIRKPATRICK nted at: [facility] TERBINAFINE HCL 1% CREAM,TOP Active APPLY LIGHT LY TO AFFECTED AREA TWO TIMES A DAY FOR INFECTION Sep 23, 2020 [id number] Sep 24, 2019 ADRIEL HERNANDEZ UREA 20% CREAM,TOP Active APPLY LIGHTLY (20%) TO AFFECTED AREA TWO TIMES A DAY NEEDED TO PROMOTE HEALING,RUB IN UNTIL COMPLETELY ABSORBED*FOR TOPICAL USE ONLY* APPLY TO BOTH FEET DIRECTED. 90 Sep 25, 2020 [id number] Sep 26, 2019 ADRIEL HERNANDEZ Problems (Conditions): [...] Alcohol intake above recommended sensible limits Active 763675211 PADMA LONG [facility] Allergic conjunctivitis Active 729758220 [facility] Bilateral senile combined form cataracts of eyes Active 69528870060 9108 [facility] Bilateral tinnitus Active 9065103895102 [facility] Coronary arteriosclerosis Active 36864382 September 08, 2014 Entered By: PADMA LONG Comment: hx of ptca to RCA several yrs. agoSeptember 08, 2014 Entered By: PADMA LONG Comment: heart cath 09/01/14, neg. / previous stent to RCA,, via abida meneses ks HATCHER, JENNEY R ROBERT [facility] Diabetes mellitus Active 29598635 PAMELA RAMSEY [facility] Disorder of pancreas Active [id number] September 08, 2014 Entered By: PADMA LONG Comment: 2.5cm low density lseion in bodyMay 2014 Entered By: PADMA LONG Comment: question of communication with pancreatic ductMay 2014 Entered By: PADMA LONG Comment: favored to be cystic pancreatic cancerMay 2014 Entered By: PADMA LONG Comment: per abdominal CT 09/01/14, via abida meneses,PADMA Pradhan [facility] Dry eyes Active 938641680 [facility] Gastro-esophageal reflux disease without esophagitis ( SNOMED CT 752359095) Active 559410635 ALF GUEVARA [facility] History of malignant neoplasm of lung Active 140836039 [facility]O BARRETO [facility] Hyperlipidemia (SNOMED CT 08588055) Active 06696926 BRAULIOPAMELA [facility] Lung mass Active 888844944 September 08, 2014 E ntered By: PADMA LONG Comment: 4.5 cm mass, post. segment right upper lobe.September 08, 2014 Entered By: PADMA LONG Comment: mild adenopathy in mediastinum and bilat. hilaMay 2014 Entered By: PADMA LONG Comment: most likely related to lung cancerMa2014 Entered By: PDAMA LONG Comment: per ct angio of chest with contrast 09/01/14,via abida meneses ksJun 2014 Entered By: PADMA LONG Comment: per path report- mod. differentiated bronchogenic adenoca. 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 Active 98653882 KATHERINE MATT [facility] Obesity Active 064878090 [facility] Obstructive sleep apnea syndrome (SNOMED CT 69719047) Active 977921 015 [facility] Pancreatic cyst Active 22355638 JAYLENE GUEVARA [facility] Papilloma of right eyelid Active 520170573503030 [facility] Polyp of colon Active 64001138 Jan 23 16 Entered By: PADMA LONG Comment: c-scope 01/17/16, multiple benign colonic polypsJun 28, 2017 Entered By: PADMA LONG Comment: c-scope,06/25/17,[facility], three benign polyps- sigmoid colon, transverse colon,cecum. see path report cprs SHARRON TORRES [facility] Pulmonary emphysema Active 51845945 0 BRIANA GAVIN [facility] Sensorineural hearing loss, bilateral Active 269649716 [facility] Snoring Active 43174550 SONG B[facility]OCK [facility] Type 2 diabetes mellitus without complication Active 373038497 [facility] Environmental Allergies (ICD-9-CM 477.9) Inactive 477.9 Dec 18, 2017 PADMA LONG [facility] External hemorrhoids without mention of complication (ICD-9- CM 455.3) Inactive 455.3 Dec 18, 2017 PADMA LONG [facility] Impotence of organic origin (ICD-9-CM 607.84) Inactive 607.84 Dec 18, 2017 PADMA LONG [facility] Screening for Lipoid disorders (ICD-9-CM V77.91) Inactive V77.91 Jan 18, 2007 [facility] Stye * (ICD-9-CM 373.11) [...] 2018 10:11 AM ADMINISTRATIVE NOTE: LOCAL TITLE: IA-ADMIN [facility] STANDARD TITLE: ADMINISTRATIVE NOTE DATE OF NOTE: DEC 24, 2018@10:11 ENTRY DATE: DEC 24, 2018@10:11:45 AUTHOR: BESSIE BOWERS EXP COSIGNER: URGENCY: STATUS: COMPLETED [facility] Administrative Note: Administrative notes: [facility] called pt to sched A1C appt for late February and pt requested that it can be done when pt has sleep appt in [place] in late february /gisell/ BESSIE [facility] Signed: 12/24/2018 10:14 Receipt Acknowledged By: 12/30/2018 09:14 /gisell/ SHANIQUA DOMINGUEZ RN 12/24/2018 10:32 /gisell/ BESSIE ROCHE OC
--- OUTSIDE RECORDS SUMMARY | 2019-12-02 07:37 | XMS REPORT | Encounter Summary ---
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 Date/Time Encounter Type Encounter Description Reason Provider Source Dec 18, 2018 10:00 AM Outpatient Encounter MOVE! PGM INDIV ICD-1 0-CM Z71.3 Dietary counseling and surveillance with Provider Comments: Dietary counseling and surveillance [facility] Template Text not used by [facility] Assessments - Encounter Diagnoses This section includes the primary and secondary diag noses documented for the Encounter. Date/Time Primary/Secondary Diagnosis Diagnosis Name Provider Source Dec 18, 2018 11:23 AM PRIMARY Dietary counseling and rain veillance CHERRIE JONES [facility] Dec 18, 2018 11:23 AM SECONDARY Body mass index (BMI) 31.0 -31.9, adult CHERRIE JONES [facility] Dec 18, 2018 11:23 AM SECONDARY Obesity, unspecified LOREN JONES [facility] Plan of Treatment: Future Appointments (+ 6 months) and Future Tests (+/- 45 day s) The Plan of Treatment section includes future care activities for the patient fr om all [place] treatment facilities. This section includes future appointments and fu ture orders which are active, pending or scheduled. Future Appointments This section includes appointments that were scheduled t o occur 6 months from the date of the Encounter, up to a maximum of 20 appointme nts. The data comes from all [facility]. Appointment Date/Time Appointment Type Appointment Facili ty Name Jan 06, 2019 11:00 AM AMBULATORY - NONE ARTUR BLAS [facility] Jan 31, 2019 09:00 AM AMBULATORY - MEDICINE [facility] Mar 10, 2019 12:30 PM AMBULATORY - SURGERY [facility] Mar 21, 2019 09:15 AM AMBULATORY - NONE [facility] Mar 21, 2019 09:30 AM AMBULATORY - MEDICINE [facility] Mar 21, 2019 09:31 AM AMBULATORY - MEDICINE ARTUR LaresJuan M SIMSMila [facility] Mar 21, 2019 10:00 AM AMBULATORY - MEDICINE [facility] Mar 21, 2019 10:01 AM AMBULATORY - MEDICINE ARTUR BLAS [facility] Mar 26, 2019 10:00 AM [facility] Apr 03, 2019 10:00 AM AMBULAT[facility] - SURGERY ARTUR BLAS [facility] Apr 14, 2019 10:00 AM AMBULATORY - SURGERY [facility] Apr 28, 2019 11:00 AM AMBULATORY - NONE ARTUR BLAS [facility] Surgical Procedures: All associated to the encounter No Data Provided for This Section Lab Results: +/- 30 days of the encounter This section includes the Chemistry and Hematology Lab R esults on record with [place] for the patient. Radiology Reports and Pathology Report s are provided separately, in subsequent sections. Lab Results This section contains the Chemistry/Hematology Results usha t were resulted 30 days before or 30 days after the date of the Encounter. Date/Time Source Result Type Result - Unit Interpretation Reference Range Comment Dec 18, 2018 08:[address] [facility] CBC & DIFF Specimen Type: [...] Dec 18, 2018 08:[address] [facility] COMPREHENSIVE METABOLIC PA KELLE Specimen Type: [...] Dec 18, 2018 08:45 AM [facility] LIPID PROFILE(HDL,TRIG,CHO L,LDL) Specimen Type: PLASMA Comment: [...] < 5 ug/mL *MICROALB/CREAT canc mcg/mg cr *PROT/SMASH HAND RATIO 0.1 *UR PROTEIN 8 mg/dL [...] and tobacco- related health factors from the [place] facility where the Encounter took place. Current Smoking Status This section includes the most current smoking, or tobacco -related health factor, from the [place] facility where the Encounter took place. Date/Time Current Smoking Status Comment Facility Jun 26, 2018 02:13 PM VA-TOBACCO QUIT 15 YRS OR MORE PORSHA BLAS [facility] Tobacco Use History This section includes a history of the smoking, or tobacco -related health factors, that were collected on or before the date of the Encoun ter. The data comes from the [place] facility where the Encounter took place. Date/Time Smoking Status/Tobacco Use Comment [facility] Jun 26, 2018 02:13 PM VA-TOBACCO QUIT 15 YRS OR MORE [facility] Jun 27, 2017 01:39 PM NON-TOBACCO USER ARTUR [place] LEVIMila [facility] Jun 27, 2017 01:16 PM NON-TOBACCO USER [facility] LaresJuan M [facility] Jan 06, 2015 02:07 PM NON-TOBACCO USER [facility] LaresJuan M [facility] Nov 23, 2014 10:38 AM NON-TOBACCO USER ARTUR LudaJuan M [facility] Oct 26, 2014 10:36 AM NON-TOBACCO USER ARTUR LaresJuan M [facility] Oct 14, 2014 11:09 AM NON-TOBACCO USER ARTUR BLAS [facility] Advance Directives: All historical and current No Data Provided for This Section Allergies and Adverse Reactions (ADRs): All historical and current Section Date Range: From patient's date of to the date document was create d. This section includes Allergies and Adverse Reactions (ADR s) on record with [facility] for the patient. The data comes from a [facility] treatment facilities. It does not list Allergies/ADRs that were removed or entered in error. Some allergies/ADRs may be reported in t Immunization section. Allergen Event Date Event Type Reaction(s) Severity Source [place] September 08, 2014 Propensity to adverse reactions to drug (diso rder) [facility], [facility] 15 [place] September 08, 2014 Propensity to adverse reactions to drug (diso rder) [facility] Medications: VA dispensed (-15 [...] care team. The data comes from all [place] treatment facilities. Glossary of Pharmacy Terms:Active = A prescription that can be filled at the local [facility] pharmacy.Active: On Hold = An active prescription that will not be filled until pharmacy resolves the issue.Active: Susp = An active prescription that is not scheduled to be filled yet.Clinic Order = A medication received during a visit to a [place] clinic or emergency department (currently not available).Discontinued [...] other providers that was filled outside the [place]. Or, it may be an over the [...] TEST BLOOD GLUCOSE 50 Dec 19, 2019 [id number] September 04, 2019 PAMELA RAMSEY ACCU-CHEK CHARLES PLUS (GLUCOSE) TEST STRIP Discontinued USE 1 STRIP FOR TESTING TWO TIMES PER WEEK - DIRECTED TO TEST BLOOD GLUCOSE 50 Jul 25, 2019 [id number] Nov 12, 2018 PAMELA RAMSEY [facility] ALBUTEROL SO4 90MCG/ACTUAT (CFC-F) INHL,ORAL,6.7GM Active INHALE 2 PUFFS BY ORAL INHALATION EVERY 4 HOURS NEEDED FOR BREATHING. SHAKE WELL. RINSE MOUTHPIECE FREQUENTLY TO PREVENT CLOGGING. USE NEEDED FOR SHORTNESS OF AIR/WHEEZING FOR BREATHING. SHAKE WELL. RINSE MOUTHPIECE FREQUENTLY TO PREVENT CLOGGING. USE NEEDED FOR SHORTNESS OF AIR/WHEEZING Dec 19, 2019 [id number] September 04, 2019 PAMELA RAMSEY ALCOHOL PREP PAD Active USE 1 PAD ON SKIN BIW TO CLEAN AND DISINFECT THE SKIN 200 Sep 29, 2020 [id number] Sep 30, 2019 MAURICIO RANKIN [facility] ALCOHOL PREP PAD Discontinued USE 1 PAD ON SKIN BI W TO CLEAN AND DISINFECT THE SKIN 200 Dec 19, 2019 [id number] Jun 06, 2019 BRAULIOPAMELA [facility] ALCOHOL PREP PAD Discontinued USE 1 PAD ON SKIN BI W TO CLEAN AND DISINFECT THE SKIN 200 Jul 25, 2019 [id number] Nov 12, 2018 PAMELA RAMSEY [facility] ASCORBIC ACID 250MG TAB Non-VA TAKE ONE TABLET BY MOUTH ONCE A DAY Non-VA Documented by: SHANIQUA SCHMIDT nted at: [facility] ASPIRIN 25MG/DIPYRIDAMOLE 200MG CAP,SA Active T CHAPIN 1 CAPSULE BY MOUTH TWO TIMES A DAY - SWALLOW WHOLE. DO NOT CRUSH OR CHEW. FOR RECURRENT TIA/STROKE 180 Dec 19, 2019 [id number] Dec 20, 2018 PAMELA RAMSEY [facility] ASPIRIN 25MG/DIPYRIDAMOLE 200MG CAP,SA Discontinued T CHAPIN 1 CAPSULE BY MOUTH TWO TIMES A DAY - SWALLOW WHOLE. DO NOT CRUSH OR CHEW. FOR RECURRENT TIA/STROKE 180 Feb 06, 2019 [id number] Sep 28, 2018 ZACHARY GRECO [facility] ASPIRIN 81MG TAB,EC Non- VA TAKE ONE TABLET BY MOUTH ONCE A DAY Non-VA Documented by: PADMA LONG nted at: [facility] ATORVASTATIN CA 80MG TAB Active TAKE ONE TABLET BY MOUTH AT BEDTIME FOR CHOLESTEROL - REPORT ANY UNEXPLAINED MUSCLE PAIN/WEAKNESS TO YOUR PROVIDER 90 Dec 19, 2019 [id number] September 04, 2019 PAMELA RAMSEY ATORVASTATIN CA 80MG TAB Discontinued TAKE ONE TABLET BY MOUTH AT BEDTIME FOR CHOLESTEROL - REPORT ANY UNEXPLAINED MUSCLE PAIN/WEAKNESS TO YOUR PROVIDER 90 Dec 20, 2018 [id number] Nov 12, 2018 PAMELA RAMSEY [facility] BUDESONIDE 160MCG/FORMOTEROL FUM 4.5MCG/SPRAY INHL,ORAL,10.2 GM Active INHALE 2 PUFFS BY MOUTH TWO TIMES A DAY FOR BREATHING. SHAKE WELL. RINSE MOUTH AND SPIT AFTER EACH USE. 3 Apr 24, 2020 [id number] August 22, 2019 LISSA OATES [facility] CALCIUM/VITAMIN D TAB No n-VA TAKE BY MOUTH ONCE A DAY Non-V A Documented by: PADMA LONG nted at: [facility] CARBOXYMETHYLCELLULOSE NA 0.5% SOLN,OPH Active INSTILL ONE DROP IN BOTH EYES FOUR TIMES A DAY FOR DRY EYES 15 Feb 01, 2020 [id number] September 03 0 [facility] [...] FOR ALL JOINTS. 100 Oct 31, 2018 [id number] Oct 06, 2018 ANAYELI KIRKPATRICK [facility] DICLOFENAC NA 1% GEL,TOP APPLY 2 GRAMS A FFECTED AREA TWO TIMES A DAY NEEDED FOR PAIN AND INFLAMMATION. DO NOT EXCEED 16GM DAILY TO ANY AFFECTED JOINT OF LOWER EXTREMITIES. DO NOT EXCEED 8GM DAILY TO ANY AFFECTED JOINT OF UPPER EXTREMITES. DO NOT EXCEED TOTAL DOSE OF 32GM DAILY FOR ALL JOINTS. 100 Jan 17, 2019 [id number] Dec 20, 2018 PAMELA RAMSEY FLUTICASONE PROPIONATE 50MCG/SPRAY SOLN,NASAL,16GM Active INSTILL 1 SPRAY IN EACH NOSTRIL ONCE A DAY SHAKE GENTLY BEFORE USE! - MUST BE USED DIRECTED FOR 3 WEEKS TO PROVIDE BENEFIT. * NO EARLY REFILLS * 1UNIT = 30DAYS AT 4 PF/DAY OR 60DAYS AT 2PF/DAY 2 Dec 19, 2019 [id number] August 26, 2019 PAMELA RAMSEY KETOTIFEN 0.025% SOLN,OPH Active INSTILL 1 DROP IN BOTH EYES TWO TIMES A DAY FOR RELIEF OF ALLERGY SYMPTOMS IN EYE(S) Feb 01, 2020 [id number] September 04, 2019 [facility] LANCET,SOFTCLIX Active USE LANCET BIW FOR TESTING BL OOD GLUCOSE DIRECTED 100 Sep 29, 2020 [id number] Sep 30, 2019 [facility]ICIO RANKIN [facility] LANCET,SOFTCLIX Discontinued USE LANCET BIW FO R TESTING BLOOD GLUCOSE DIRECTED Dec 19, 2019 [id number] Jun 06, 2019 PAMELA RAMSEY LANCET,SOFTCLIX Discontinued USE LANCET BIW FO R TESTING BLOOD GLUCOSE DIRECTED 100 Jul 25, 2019 [id number] Nov 12, 2018 PAMELA RAMSEY LISINOPRIL 40MG TAB Non- VA TAKE ONE-HALF TABLET BY MOUTH EVERY MORNING Non-VA Documented by: PAMELA RAMSEY nted at: [facility] LORATADINE/PSEUDOEPHEDRINE TAB,SA Non-VA TAKE BY MOUTH No n-VA Documented by: JUAN LANGume nted at: ARTUR BLAS [facility] MAGNESIUM OXIDE 400MG TAB Non-VA TAKE [...] ACID (REPLACES ACIPHEX) 180 Dec 19, 2019 [id number] August 26, 2019 PAMELA RAMSEY POLYETHYLENE GLYCOL [...] Non-VA Documented by: KATHERINE MATT nted at: [facility] PREGABALIN 150MG CAP,ORAL Non-VA TAKE 1 CAPSULE BY MOUTH TWO TIMES A DAY Non-VA Docume nted by: PAMELA RAMSEY nted at: [facility] SEMAGLUTIDE INJ,SOLN Non -VA INJECT SUBCUTANEOUSLY EVERY WEEK Non-VA Documented by: ANAYELI KIRKPATRICK nted at: [facility] TERBINAFINE HCL 1% CREAM,TOP Active APPLY LIGHT LY TO AFFECTED AREA TWO TIMES A DAY FOR INFECTION 90 Sep 23, 2020 [id number] Sep 24, 2019 [facility]NDEZ [facility] UREA 20% CREAM,TOP Active APPLY LIGHTLY (20%) TO AFFECTED AREA TWO TIMES A DAY NEEDED TO PROMOTE HEALING,RUB IN UNTIL COMPLETELY ABSORBED*FOR TOPICAL USE ONLY* APPLY TO BOTH FEET DIRECTED. 90 Sep 25, 2020 [id number] Sep 26, 2019 [facility] HERNANDEZ [facility] Problems (Conditions): All historical and current Section Date Range: From patient's date of to the date document was create d. This section includes a list of Problems (Conditions) know n to [facility] for the patient. It includes both active and inacti ve problems (conditions). The data comes from all [place] treatment facilities. Problem Status Problem Code Date of Onset Date of Resolution Comm ent(s) Provider Source Alcohol intake above recommended sensible limits Active 802585163 PADMA LONG [facility] Allergic conjunctivitis Active 213474783 HUDSONFACUNDONEDA Luda [facility] Bilateral senile combined form cataracts of eyes Active 27659336808 9108 [facility] Bilateral tinnitus Active 2996291553753 CHASTITY JEAN [facility] Coronary arteriosclerosis Active 03126698 September 08, 2014 Entered By: PADMA LONG Comment: hx of ptca to RCA several yrs. agoSeptember 08, 2014 Entered By: PADMA LONG Comment: heart cath 09/01/14, neg. / previous stent to RCA,, via abida meneses ks HATCHER, JENNEY R [facility] Diabetes mellitus Active 91915001 PAMELA RAMSEY [facility] Disorder of pancreas Active 0128626 September 08, 2014 Entered By: PADMA LONG Comment: 2.5cm low density lseion in bodyMay 2014 Entered By: PADMA LONG Comment: question of communication with pancreatic ductMay 2014 Entered By: PADMA LONG Comment: favored to be cystic pancreatic cancerMay 2014 Entered By: PADMA LONG Comment: per abdominal CT 09/01/14, via abida menesesms PADMA LONG Juan M [facility] Dry eyes Active 476233646 NEDA SHAW [facility] Gastro-esophageal reflux disease without esophagitis ( SNOMED CT 181365263) [facility] 797778985 [facility] History of malignant neoplasm of lung Active 216611163 CHAPO BARRETO [facility] Hyperlipidemia (SNOMED CT 63981500) Active 42307259 PAMELA RAMSEY [facility] Lung mass Active 317791523 September 08, 2014 E ntered By: PADMA LONG Comment: 4.5 cm mass, post. segment right upper lobe.September 08, 2014 Entered By: PADMA LONG Comment: mild adenopathy in mediastinum and bilat. hilaMay 2014 Entered By: PADMA LONG Comment: most likely related to lung cancerMa2014 Entered By: PADMA LONG Comment: per ct angio of chest with contrast 09/01/14,via abida menesesmsJun 2014 Entered By: PADMA LONG Comment: per path report- mod. differentiated bronchogenic adenoca. 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 Active 92097502 KATHERINE MATT [facility] Obesity Active 755715436 SONG BULLOCK [facility] Obstructive sleep apnea syndrome (SNOMED CT 47090937) Active 013145 015 PHILIPPE DOUGLASS [facility] Pancreatic cyst Active 04456867 JAYLENE GUEVARA [facility] Papilloma of right eyelid Active 675617377085129 NEDA SHAW [facility] Polyp of colon Active 38569790 Jan 23 16 Entered By: PADMA LONG Comment: c-scope 01/17/16, multiple benign colonic polypsMar 2017 Entered By: PADMA LONG Comment: c-scope,06/25/17,[facility], three benign polyps- sigmoid colon, transverse colon,cecum. see path report cprs SHARRON TORRES MO THAYER [facility] Pulmonary emphysema Active 70685158 0 BRIANA LESLYE [facility] Sensorineural hearing loss, bilateral Active 453303757 TEDCHASTITY Nicol [facility] Snoring Active 07683068 SONG BULLOCK [facility] Type 2 diabetes mellitus without complication Active 341484130 COLINNEDA Luda [facility] Environmental Allergies (ICD-9-CM 477.9) Inactive 477.9 Dec 18, 2017 PADMA LONG [facility] External hemorrhoids without mention of complication (ICD-9- CM 455.3) Inactive 455.3 Dec 18, 2017 PADMA LONG [facility] Impotence of organic origin (ICD-9-CM 607.84) Inactive 607.84 Dec 18, 2017 PADMA LONG [facility] Screening for Lipoid disorders (ICD-9-CM V77.91) Inactive V77.91 Jan 18, 2007 [facility] Stye * (ICD-9-CM 373.11) Inactive 373.11 Dec 18 8 Jan 18, 2007 Entered By: PADMA LONG Comment: bilat lower lids, chronic/recurrent PADMA LONG [facility] Tobacco Use Disorder, Continuous Inactive 305.1 Dec 18, 2017 Jan 18, 2007 Entered By: PADMA LONG Comment: one ppd PADMA LONG [facility] Radiology Reports: +/- 30 days of the encounter No Data Provided for This Section Pathology Reports: +/- 30 days of the encounter No Data Provided for This Section Encounter Notes: All associated encounter notes This section contains the clinical notes associated to the Encounter. Date/Time Encounter Note(s) Provider Source Dec 18, 2018 11:24 AM MOVE NOTE: LOCAL TITLE: MS-WEIGHT MANAGEMENT/MOVE! OUTPATIENT INDIVIDUAL STANDARD TITLE: MOVE NOTE DATE OF NOTE: DEC 18, 2018@11:24 ENTRY DATE: DEC 18, 2018@11:26:46 AUTHOR: GARY HARRINGTON EXP COSIGNER: URGENCY: STATUS: COMPLETED [place]-NUTRITION, MEDICAL THERAPY [...] profile: Hemoglobin A1C(HgbA1C) Subjective Data: Patient in [place] states: He's really been under a lot [...] this morning's bs was 127-"unually in the 90's"; was started on BP meds about 2-3 [...] spent with patient 30 minutes. /gisell/ GARY ARANDAS,RD,LD,CDE CLINICAL DIETITIAN Signed: 12/18/2018 11:41 GARY HARRINGTON [facility]
--- OUTSIDE RECORDS SUMMARY | 2019-12-02 07:37 | XMS REPORT | Encounter Summary ---
Author Author Department of [facility] Aff rsHERBERTH Organization [facility] Aff[facility] Address [address] [place] [address] Phone Unavailable Care Team Providers Care Cmm Technician Name Role Phone ADRIEL HERNANDEZ PCP [...] Jan 06, 2019 11:00 AM AMBULATORY - [facility] ARTUR TERAN [facility] [place] Jan 31, 2019 09:00 AM AMBULATORY - MEDICINE [facility] Mar 10, 2019 12:30 PM AMBULATORY - SURGERY [facility] Mar 21, 2019 09:15 AM AMBULATORY - NONE [facility] Mar 21, 2019 09:30 AM AMBULATORY - MEDICINE [facility] Mar 21, 2019 09:31 AM AMBULATORY - MEDICINE ARTUR TERAN [facility] Mar 21, 2019 10:00 AM AMBULATORY - MEDICINE [facility] Mar 21, 2019 10:01 AM AMBULATORY - MEDICINE ARTUR TERAN [facility] Mar 26, 2019 10:00 AM AMBULATORY - NONE [facility] Apr 03, 2019 10:00 AM AMBULATORY - SURGERY ARTUR CARRASQUILLO Apr 14, 2019 10:00 AM AMBULATORY - SURGERY [facility] Apr 28, 2019 11:00 AM AMBULATORY - NONE [facility] TERAN [facility] Surgical Procedures: All associated [...] Range Comment Dec 18, 2018 08:45 AM [facility] CBC & DIFF Specimen Type: BLOOD No [...] % Dec 18, 2018 08:45 AM [facility] COMPREHENSIVE METABOLIC PA KELLE Specimen Type: [...] >60 Dec 18, 2018 08:45 AM [facility] LIPID PROFILE(HDL,TRIG,CHO L,LDL) Specimen Type: PLASMA Comment: For eGFR: eGFR results >60 are imprecise. Many variables affect the calculated result. Interpretation of eGFR results >60 must be monitored over time. CHOLESTEROL 172 mg/dL 0-200 TRIGS 190 mg/dL H 0-150 HDL-CHOLESTEROL 40 mg/dL >40 LDL (CALC) 94 mg/dL 0-99.9 Dec 18, 2018 08:45 AM [facility] PROSTATIC SPECIFIC ANTIGEN (TOTAL) Specimen Type: SERUM No comment entered. PROSTATIC SPECIFIC ANTIGEN(TOTAL) 1.3 ng/mL 0-4 Dec 18, 2018 08:45 AM [facility] HEMOGLOBIN A1C Specimen Type: BLOOD No [...] < 5 ug/mL *MICROALB/CREAT canc mcg/mg cr *PROT/GLASSWARE DEFECT REPAIRER RATIO 0.1 *UR PROTEIN 8 mg/dL *UR [...] and tobacco- related health factors from the [place] facility where the Encounter took place. Current Smoking Status This section includes the most current smoking, or tobacco -related health factor, from the [place] facility where the Encounter took place. Date/Time Current Smoking Status Comment Facility Nov 23, 2017 09:51 AM TOBACCO USER OFFERED MEDS [facility] Tobacco Use History This section includes a history of the smoking, or tobacco -related health factors, that were collected on or before the date of the Encoun ter. The data comes from the [place] facility where the Encounter took place. Date/Time Smoking Status/Tobacco Use Comment [facility] it Nov 23, 2017 09:51 AM CURRENT TOBACCO USER (READY TO QUIT) [facility] Nov 23, 2017 09:51 AM TOBACCO CESSATION REFERRAL DECLINED [facility] Nov 23, 2017 09:51 AM TOBACCO [...] 01, 2005 08:32 AM NON-TOBACCO USER [facility] Advance Directives: All historical and current No Data Provided for This Section Allergies and Adverse Reactions (ADRs): All historical and current Section Date Range: From patient's date of to the date document was create d. This section includes Allergies and Adverse Reactions (ADR s) [facility] with [facility] for the [facility]. The data comes from a ll [place] treatment facilities. It does not list Allergies/ADRs that were removed or entered in error. Some allergies/ADRs may be reported in t he Immunization section. Allergen Event Date Event Type Reaction(s) Severity Source [place] September 08, 2014 Propensity to adverse reactions to drug (diso rder) [facility] [place] September 08, 2014 Propensity to adverse reactions to drug (diso rder) [facility] Medications: VA dispensed (-15 months) and Non-VA Documented (Obtained Outside V A) Section Date Range: 1) prescriptions processed by a [facility] pharmacy in the last 15 m [facility], and 2) all medications recorded in [...] TEST BLOOD GLUCOSE 50 Dec 19, 2019 [id number] September 04, 2019 PAMELA RAMSEY ACCU-CHEK CHARLES PLUS (GLUCOSE) TEST STRIP Discontinued USE 1 STRIP FOR TESTING TWO TIMES PER WEEK - DIRECTED TO TEST BLOOD GLUCOSE 50 Jul 25, 2019 [id number] Nov 12, 2018 PAMELA RAMSEY ALBUTEROL SO4 90MCG/ACTUAT (CFC-F) INHL,ORAL,6.7GM Active INHALE 2 PUFFS BY ORAL INHALATION EVERY 4 HOURS NEEDED FOR BREATHING. SHAKE WELL. RINSE MOUTHPIECE FREQUENTLY TO PREVENT CLOGGING. USE NEEDED FOR SHORTNESS OF AIR/WHEEZING FOR BREATHING. SHAKE WELL. RINSE MOUTHPIECE FREQUENTLY TO PREVENT CLOGGING. USE NEEDED FOR SHORTNESS OF AIR/WHEEZING 1 Dec 19, 2019 [id number] September 04, 2019 PAMELA RAMSEY ALCOHOL PREP PAD Active USE 1 PAD ON SKIN BIW TO CLEAN AND DISINFECT THE SKIN 200 Sep 29, 2020 [id number] Sep 30, 2019 MAURICIO RANKIN ALCOHOL PREP PAD Discontinued USE 1 PAD ON SKIN BI W TO CLEAN AND DISINFECT THE SKIN 200 Dec 19, 2019 [id number] Jun 06, 2019 PAMELA RAMSEY ALCOHOL PREP PAD Discontinued USE 1 PAD ON SKIN BI W TO CLEAN AND DISINFECT THE SKIN 200 Jul 25, 2019 [id number] Nov 12, 2018 PAMELA RAMSEY ASCORBIC ACID 250MG TAB Non-VA TAKE ONE TABLET BY MOUTH ONCE A DAY Non-VA Documented by: SHANIQUA SCHMIDT nted at: [facility] ASPIRIN 25MG/DIPYRIDAMOLE 200MG CAP,SA Active T CHAPIN 1 CAPSULE BY MOUTH TWO TIMES A DAY - SWALLOW WHOLE. DO NOT CRUSH OR CHEW. FOR RECURRENT TIA/STROKE 180 Dec 19, 2019 [id number] Dec 20, 2018 PAMELA RAMSEY ASPIRIN 25MG/DIPYRIDAMOLE 200MG CAP,SA Discontinued T CHAPIN 1 CAPSULE BY MOUTH TWO TIMES A DAY - SWALLOW WHOLE. DO NOT CRUSH OR CHEW. FOR RECURRENT TIA/STROKE 180 Feb 06, 2019 [id number] Sep 28, 2018 ZACHARY GRECO [facility] ASPIRIN 81MG TAB,EC Non- [facility] TAKE ONE TABLET BY MOUTH ONCE A DAY Non-VA Documented by: PADMA LONG nted at: [facility] ATORVASTATIN CA 80MG TAB Active TAKE ONE TABLET BY MOUTH AT BEDTIME FOR CHOLESTEROL - REPORT ANY UNEXPLAINED MUSCLE PAIN/WEAKNESS TO YOUR PROVIDER 90 Dec 19, 2019 [id number] September 04, 2019 PAMELA RAMSEY ATORVASTATIN CA 80MG TAB Discontinued TAKE ONE TABLET BY MOUTH AT BEDTIME FOR CHOLESTEROL - REPORT ANY UNEXPLAINED MUSCLE PAIN/WEAKNESS TO YOUR PROVIDER 90 Dec 20, 2018 [id number] Nov 12, 2018 PAMELA RAMSEY BUDESONIDE 160MCG/FORMOTEROL FUM 4.5MCG/SPRAY INHL,ORAL,10.2 GM Active INHALE 2 PUFFS BY MOUTH TWO TIMES A DAY FOR BREATHING. SHAKE WELL. RINSE MOUTH AND SPIT AFTER EACH USE. 3 Apr 24, 2020 [id number] August 22, 2019 LISSA OATES [facility] CALCIUM/VITAMIN D TAB No n-VA TAKE BY MOUTH ONCE A DAY Non-V A Documented by: PADMA LNOG nted at: [facility] CARBOXYMETHYLCELLULOSE NA 0.5% SOLN,OPH Active INSTILL ONE DROP IN BOTH EYES FOUR TIMES A DAY FOR DRY EYES Feb 01, 2020 [id number] September 03 0 NED[facility] SH[facility] DICLOFENAC NA 1% GEL,TOP Discontinued APPLY 2 GRAMS A FFECTED AREA TWO TIMES A DAY NEEDED FOR PAIN AND INFLAMMATION. DO NOT EXCEED 16GM DAILY TO ANY AFFECTED JOINT OF LOWER EXTREMITIES. DO NOT EXCEED 8GM DAILY TO ANY AFFECTED JOINT OF UPPER EXTREMITES. DO NOT EXCEED TOTAL DOSE OF 32GM DAILY FOR ALL JOINTS. 100 Oct 31, 2018 [id number] Oct 06, [address] [facility] DICLOFENAC NA 1% GEL,TOP APPLY 2 GRAMS A FFECTED AREA TWO TIMES A DAY NEEDED FOR PAIN AND INFLAMMATION. DO NOT EXCEED 16GM DAILY TO ANY AFFECTED JOINT OF LOWER EXTREMITIES. DO NOT EXCEED 8GM DAILY TO ANY AFFECTED JOINT OF UPPER EXTREMITES. DO NOT EXCEED TOTAL DOSE OF 32GM DAILY FOR ALL JOINTS. 100 Jan 17, 2019 [id number] Dec 20, 2018 PAMELA RAMSEY FLUTICASONE PROPIONATE 50MCG/SPRAY SOLN,NASAL,16GM Active INSTILL 1 SPRAY IN EACH NOSTRIL ONCE A DAY SHAKE GENTLY BEFORE USE! - MUST BE USED DIRECTED FOR 3 WEEKS TO PROVIDE BENEFIT. * NO EARLY REFILLS * 1UNIT = 30DAYS AT 4 PF/DAY OR 60DAYS AT 2PF/DAY 2 Dec 19, 2019 [id number] August 26, 2019 PAMELA RAMSEY KETOTIFEN 0.025% SOLN,OPH Active INSTILL 1 DROP IN BOTH EYES TWO TIMES A DAY FOR RELIEF OF ALLERGY SYMPTOMS IN EYE(S) Feb 01, 2020 [id number] September 04, 2019 [facility] SH[facility] LANCET,SOFTCLIX Active USE LANCET BIW FOR TESTING BL OOD GLUCOSE DIRECTED Sep 29, 2020 [id number] Sep 30, 2019 [facility] LANCET,SOFTCLIX Discontinued USE LANCET BIW FO R TESTING BLOOD GLUCOSE DIRECTED Dec 19, 2019 [id number] Jun 06, 2019 PAMELA RAMSEY LANCET,SOFTCLIX Discontinued USE LANCET BIW FO R TESTING BLOOD GLUCOSE DIRECTED Jul 25, 2019 [id number] Nov 12, 2018 PAMELA RAMSEY LISINOPRIL 40MG TAB Non- VA TAKE ONE-HALF TABLET BY MOUTH EVERY MORNING Non-VA Documented by: PAMELA RAMSEY nted at: [facility] LORATADINE/PSEUDOEPHEDRINE TAB,SA Non-VA TAKE BY MOUTH No n-VA Documented by: JUAN LANG nted at: ARTUR TERAN [facility] MAGNESIUM OXIDE 400MG TAB Non-VA TAKE ONE TABLET BY MOUTH ONCE A DAY Non-VA Documented by: SHANIQUA SCHMIDT nted at: [facility] METFORMIN HCL 500MG TAB Non-VA TAKE ONE TABLET BY MOUTH TWO TIMES A DAY WITH BREAKFAST AND EVENING MEAL Non-VA Documented by: SHANIQUA SCHMIDT nted at: [facility] MULTIVITAMINS CAP/TAB No n-VA TAKE 1 CAP/TAB BY MOUTH ONCE A DAY Non-VA Documented by: SHANIQUA SCHMIDT nted at: [facility] OMEPRAZOLE 20MG CAP,EC Active TAKE 2 CAPSULES B Y MOUTH BEFORE BREAKFAST 30 MINUTES BEFORE EATING TO LOWER STOMACH ACID (REPLACES ACIPHEX) 180 Dec 19, 2019 [id number] August 26, 2019 PAMELA RAMSEY POLYETHYLENE GLYCOL 3350 PWDR,ORAL Non-VA TAKE 1 CAPFUL (17GM) BY MOUTH ONCE A DAY Non-VA Documented by: SHANIQUA SCHMIDT nted at: [facility] POTASSIUM GLUCONATE TAB Non-VA TAKE 90 MG BY MOUTH ONCE A DAY N on-VA Documented by: SHANIQUA SCHMIDT nted at: [facility] PRASUGREL HCL 10MG TAB N on-VA TAKE ONE TABLET BY MOUTH ONCE A DAY Non-VA Documented by: KATHERINE MATT nted at: [facility] PREGABALIN 150MG CAP,ORAL Non-VA TAKE 1 CAPSULE BY MOUTH TWO TIMES A DAY Non-VA Docume nted by: PAMELA RAMSEY nted at: [facility] SEMAGLUTIDE INJ,SOLN Non -VA INJECT SUBCUTANEOUSLY EVERY WEEK Non-VA Documented by: ANAYELI KIRKPATRICK nted at: [facility] TERBINAFINE HCL 1% CREAM,TOP Active APPLY LIGHT LY TO AFFECTED AREA TWO TIMES A DAY FOR INFECTION Sep 23, 2020 [id number] Sep 24, 2019 ADRIEL HERNANDEZ UREA 20% CREAM,TOP Active APPLY LIGHTLY (20%) TO AFFECTED AREA TWO TIMES A DAY NEEDED TO PROMOTE HEALING,RUB IN UNTIL COMPLETELY ABSORBED*FOR TOPICAL USE ONLY* APPLY TO BOTH FEET DIRECTED. 90 Sep 25, 2020 [id number] Sep 26, 2019 ADRIEL HERNANDEZ Problems (Conditions): [...] Alcohol intake above recommended sensible limits Active 478525654 PADMA LONG [facility] Allergic conjunctivitis Active 508218249 [facility] Bilateral senile combined form cataracts of eyes Active 16929124335 9108 [facility] Bilateral tinnitus Active [id number] CHASTITY JEAN [facility] Coronary arteriosclerosis Active 36313131 September 08, 2014 Entered By: PADMA LONG Comment: hx of ptca to RCA several yrs. agoSeptember 08, 2014 Entered By: PADAM LONG Comment: heart cath 09/01/14, neg. / previous stent to RCA,, via abida meneses ks HATCHER, JENNEY R ROBERT [facility] Diabetes mellitus Active 76909824 PAMELA RAMSEY [facility] Disorder of pancreas Active 6658112 September 08, 2014 Entered By: PADMA LONG Comment: 2.5cm low density lseion in bodyMay 2014 Entered By: PADMA LONG Comment: question of communication with pancreatic ductMay 2014 Entered By: PADMA LONG Comment: favored to be cystic pancreatic cancerMay 2014 Entered By: PADMA LONG Comment: per abdominal CT 09/01/14, via abida meneses,PADMA Pradhan [facility] Dry eyes Active 690061486 [facility] SH[facility] Gastro-esophageal reflux disease without esophagitis ( SNOMED CT 178319221) Active 976456157 ALF GUEVARA [facility] History of malignant neoplasm of lung Active 581333595 CHAPO BARRETO [facility] Hyperlipidemia (SNOMED CT 72931329) Active 36887515 BRAULIOPAMELA [facility] Lung mass Active 017711748 September 08, 2014 E ntered By: PADMA [...] uncertain behavior of skin of eyelid Active 54148009 KATHERINE MATT [facility] Obesity Active 183112099 [facility] Obstructive sleep apnea syndrome (SNOMED CT 52379564) Active 377888 015 PHILIPPE DOUGLASS [facility] Pancreatic cyst Active 31283007 JAYLENE GUEVARA [facility] Papilloma of right eyelid Active [id number] [facility] SHAW [facility] Polyp of colon Active 61116033 Jan 23 16 Entered By: PAMDA LONG Comment: c-scope 01/17/16, multiple benign colonic polypsJun 28, 2017 Entered By: PADMA LONG Comment: [facility] three benign polyps- sigmoid colon, transverse colon,cecum. see path report cprs SHARRON TORRES [facility] Pulmonary emphysema Active 91529967 0 BRIANA GAVIN [facility] Sensorineural hearing loss, bilateral Active 617625807 CHASTITY JEAN [facility] Snoring Active 16759731 SONG BULLOCK [facility] Type 2 diabetes mellitus without complication Active 099029074 [facility] SHAW [facility] Environmental Allergies (ICD-9-CM 477.9) Inactive 477.9 Dec 18, [address] [facility] External hemorrhoids without mention of complication (ICD-9- CM 455.3) Inactive 455.3 Dec 18, 2017 PADMA LONG [facility] Impotence of organic origin (ICD-9-CM 607.84) Inactive 607.84 Dec 18, [address] Screening for Lipoid disorders (ICD-9-CM V77.91) Inactive V77.91 Jan 18, 2007 PADMA LONG [facility] Stye * (ICD-9-CM 373.11) Inactive 373.11 Dec 18, 8 Jan 18, 2007 Entered By: PADMA LONG Comment: bilat lower lids, chronic/recurrent PADMA LONG [facility] Tobacco Use Disorder, Continuous Inactive 305.1 Dec 18, 2017 Jan 18, 2007 Entered By: PADMA LONG Comment: one ppd PADMA LONG [facility] Radiology Reports: +/- 30 days [...] ANA CELISIGNER: URGENCY: STATUS: COMPLETED Department of [facility] Artur Teran [address] [place] [address] HERBERTH BOB [address] [place] [address], [address] Nov Dear HERBERTH BOB, The purpose of this letter is to inform you of your test results done recently at the [facility],[place], [place]. Your provider has reviewed your recent [...]
--- OUTSIDE RECORDS SUMMARY | 2019-12-02 07:37 | XMS REPORT | Encounter Summary ---
Author Author Department of [facility] rsHERBERTH Organization Department of [facility] Affai rs Address [address] [place] [address] Phone Unavailable Care Team Providers Care Orthodontic Lab Technician Name Role Phone ADRIEL HERNANDEZ PCP [...] Comments: General Symptoms & Signs ANA CONKLIN [facility] IHE Encounter Template Text not used by SD Assessments - Encounter Diagnoses This section includes the primary and secondary diag noses documented for the Encounter. Date/Time Primary/Secondary Diagnosis Diagnosis Name Provider Source Dec 24, 2018 01:00 PM PRIMARY Other general symptoms and signs ANA CONKLIN [facility] Plan of Treatment: Future Appointments (+ 6 [...] appointme nts. The data comes from all [place] treatment facilities. Appointment Date/Time Appointment Type Appointment Facili ty Name Jan 06, 2019 11:00 AM AMBULATORY - NONE [facility] Jan 31, 2019 09:00 AM AMBULATORY - MEDICINE [facility] Mar 10, 2019 12:30 PM AMBULATORY - SURGERY [facility] Mar 21, 2019 09:15 AM AMBULATORY - NONE [facility] Mar 21, 2019 09:30 AM AMBULATORY - MEDICINE [facility] Mar 21, 2019 09:31 AM AMBULATORY - MEDICINE [facility] Mar 21, 2019 10:00 AM AMBULATORY - MEDICINE [facility] Mar 21, 2019 10:01 AM AMBULATORY - MEDICINE [facility] Mar 26, 2019 10:00 AM AMBULATORY - NONE [facility] Apr 03, 2019 10:00 AM AMBULATORY - SURGERY [facility] Apr 14, 2019 10:00 AM AMBULATORY - SURGERY [facility] Apr 28, 2019 11:00 AM AMBULATORY - NONE [facility] Surgical Procedures: All associated to the [...] Range Comment Dec 18, 2018 08:45 AM [facility] CBC & DIFF Specimen Type: BLOOD [...] 0.4 % Dec 18, 2018 08:45 AM [facility] COMPREHENSIVE METABOLIC PA KELLE Specimen Type: [...] EGFR >60 Dec 18, 2018 08:45 AM [facility] LIPID PROFILE(HDL,TRIG,CHO L,LDL) Specimen Type: PLASMA [...] < 5 ug/mL *MICROALB/CREAT canc mcg/mg cr *PROT/ACCOUNTING LECTURER RATIO 0.1 *UR PROTEIN 8 mg/dL *UR [...] and tobacco- related health factors from the SD facility where the Encounter took place. Current Smoking Status This section includes the most current smoking, or tobacco -related health factor, from the [place] facility where the Encounter took place. Date/Time Current Smoking Status Comment Facility Jun 26, 2018 02:13 PM VA-TOBACCO QUIT 15 YRS OR MORE [facility] Tobacco Use History This section includes a history of the smoking, or tobacco -related health factors, that were collected on or before the date of the Encoun ter. The data comes from the [place] facility where the Encounter took place. Date/Time Smoking Status/Tobacco Use Edu morris Jun 26, 2018 02:13 PM VA-TOBACCO QUIT 15 YRS OR MORE [facility] Jun 27, 2017 01:39 PM NON-TOBACCO USER [...] patient. The data comes from a ll [place] treatment facilities. It does not list Allergies/ADRs that were removed or entered in error. Some allergies/ADRs may be reported in t Immunization section. Allergen Event Date Event Type Reaction(s) Severity Source [place] September 08, 2014 Propensity to adverse reactions to drug (diso rder) [facility] 15 [place] September 08, 2014 Propensity to adverse reactions to drug (diso rder) [facility] 15 Medications: VA dispensed (-15 months) and Non-VA Documented (Obtained Outside V A) Section Date Range: 1) prescriptions processed by a [facility] pharmacy in the [facility], and 2) all medications recorded in the VA medical record as "non-VA medic ations". Pharmacy terms refer to VA pharmacy's work on prescriptions. VA patient s are advised to take their medications as instructed by their health care team. The data comes from all [place] treatment facilities. Glossary of Pharmacy Terms:Active = A prescription that can be filled at the local [place] pharmacy.Active: On Hold = An active prescription [...] TEST BLOOD GLUCOSE 50 Dec 19, 2019 [id number] September 04, 2019 PAMELA RAMSEY CBGUILLERMO ACCU-CHEK CHARLES PLUS (GLUCOSE) TEST STRIP Discontinued USE 1 STRIP FOR TESTING TWO TIMES PER WEEK - DIRECTED TO TEST BLOOD GLUCOSE 50 Jul 25, 2019 [id number] Nov 12, 2018 PAMELA RAMSEY ALBUTEROL SO4 90MCG/ACTUAT (CFC-F) INHL,ORAL,6.7GM Active INHALE 2 PUFFS BY ORAL INHALATION EVERY 4 HOURS NEEDED FOR BREATHING. SHAKE WELL. RINSE MOUTHPIECE FREQUENTLY TO PREVENT CLOGGING. USE NEEDED FOR SHORTNESS OF AIR/WHEEZING FOR BREATHING. SHAKE WELL. RINSE MOUTHPIECE FREQUENTLY TO PREVENT CLOGGING. USE NEEDED FOR SHORTNESS OF AIR/WHEEZING 1 Dec 19, 2019 [id number] September 04, 2019 PAMELA RAMSEY CBGUILLERMO ALCOHOL PREP PAD Active USE 1 PAD ON SKIN BIW TO CLEAN AND DISINFECT THE SKIN Sep 29, 2020 [id number] Sep 30, 2019 MAURICIO RANKIN [facility] ALCOHOL PREP PAD Discontinued USE 1 PAD ON SKIN BI W TO CLEAN AND DISINFECT THE SKIN 200 Dec 19, 2019 [id number] Jun 06, 2019 PAMELA RAMSEY [facility] ALCOHOL PREP PAD Discontinued USE 1 PAD ON SKIN BI W TO CLEAN AND DISINFECT THE SKIN 200 Jul 25, 2019 [id number] Nov 12, 2018 PAMELA RAMSEY ASCORBIC ACID 250MG TAB Non-VA TAKE ONE TABLET BY MOUTH ONCE A DAY Non-VA Documented by: SHANIQUA SCHMIDT nted at: [facility] ASPIRIN 25MG/DIPYRIDAMOLE 200MG CAP,SA Active T CHAPIN 1 CAPSULE BY MOUTH TWO TIMES A DAY - SWALLOW WHOLE. DO NOT CRUSH OR CHEW. FOR RECURRENT TIA/STROKE 180 Dec 19, 2019 [id number] Dec 20, 2018 PAMELA RAMSEY [facility] ASPIRIN 25MG/DIPYRIDAMOLE 200MG CAP,SA Discontinued T CHAPIN 1 CAPSULE BY MOUTH TWO TIMES A DAY - SWALLOW WHOLE. DO NOT CRUSH OR CHEW. FOR RECURRENT TIA/STROKE 180 Feb 06, 2019 [id number] Sep 28, 2018 ZACHARY GRECO [facility] ASPIRIN 81MG TAB,EC Non- VA TAKE ONE TABLET BY MOUTH ONCE A DAY Non-VA Documented by: PADMA LONG nted at: [facility] ATORVASTATIN CA 80MG TAB Active TAKE ONE TABLET BY MOUTH AT BEDTIME FOR CHOLESTEROL - REPORT ANY UNEXPLAINED MUSCLE PAIN/WEAKNESS TO YOUR PROVIDER 90 Dec 19, 2019 [id number] September 04, 2019 PAMELA RAMSEY ATORVASTATIN CA 80MG TAB Discontinued TAKE ONE TABLET BY MOUTH AT BEDTIME FOR CHOLESTEROL - REPORT ANY UNEXPLAINED MUSCLE PAIN/WEAKNESS TO YOUR PROVIDER 90 Dec 20, 2018 [id number] Nov 12, 2018 PAMELA RAMSEY CB BUDESONIDE 160MCG/FORMOTEROL FUM 4.5MCG/SPRAY INHL,ORAL,10.2 GM Active INHALE 2 PUFFS BY MOUTH TWO TIMES A DAY FOR BREATHING. SHAKE WELL. RINSE MOUTH AND SPIT AFTER EACH USE. 3 Apr 24, 2020 [id number] August 22, 2019 LISSA OATES [facility] CALCIUM/VITAMIN D TAB No n-VA TAKE BY MOUTH ONCE A DAY Non-V A Documented by: PADMA LONG nted at: [facility] CARBOXYMETHYLCELLULOSE NA 0.5% SOLN,OPH Active INSTILL ONE DROP IN BOTH EYES FOUR TIMES A DAY FOR DRY EYES 15 Feb 01, 2020 [id number] September 03 0 [facility] DICLOFENAC NA 1% GEL,TOP Discontinued APPLY 2 GRAMS A FFECTED AREA TWO TIMES A DAY NEEDED FOR PAIN AND INFLAMMATION. DO NOT EXCEED 16GM DAILY TO ANY AFFECTED JOINT OF LOWER EXTREMITIES. DO NOT EXCEED 8GM DAILY TO ANY AFFECTED JOINT OF UPPER EXTREMITES. DO NOT EXCEED TOTAL DOSE OF 32GM DAILY FOR ALL JOINTS. 100 Oct 31, 2018 [id number] Oct 06, 2018 ANAYELI KIRKPATRICK Luda Juan M SIMSMila [facility] DICLOFENAC NA 1% GEL,TOP APPLY 2 GRAMS A FFECTED AREA TWO TIMES A DAY NEEDED FOR PAIN AND INFLAMMATION. DO NOT EXCEED 16GM DAILY TO ANY AFFECTED JOINT OF LOWER EXTREMITIES. DO NOT EXCEED 8GM DAILY TO ANY AFFECTED JOINT OF UPPER EXTREMITES. DO NOT EXCEED TOTAL DOSE OF 32GM DAILY FOR ALL JOINTS. 100 Jan 17, 2019 [id number] Dec 20, 2018 PAMELA RAMSEY FLUTICASONE PROPIONATE 50MCG/SPRAY SOLN,NASAL,16GM Active INSTILL 1 SPRAY IN EACH NOSTRIL ONCE A DAY SHAKE GENTLY BEFORE USE! - MUST BE USED DIRECTED FOR 3 WEEKS TO PROVIDE BENEFIT. * NO EARLY REFILLS * 1UNIT = 30DAYS AT 4 PF/DAY OR 60DAYS AT 2PF/DAY 2 Dec 19, 2019 [id number] August 26, 2019 PAMELA RAMSEY KETOTIFEN 0.025% SOLN,OPH Active INSTILL 1 DROP IN BOTH EYES TWO TIMES A DAY FOR RELIEF OF ALLERGY SYMPTOMS IN EYE(S) 10 Feb 01, 2020 [id number] September 04, 2019 [facility] LANCET,SOFTCLIX Active USE LANCET BIW FOR TESTING BL OOD GLUCOSE DIRECTED 100 Sep 29, 2020 [id number] Sep 30, 2019 MAURICIO RANKIN LANCET,SOFTCLIX Discontinued USE LANCET BIW FO R TESTING BLOOD GLUCOSE DIRECTED Dec 19, 2019 [id number] Jun 06, 2019 PAMELA RAMSEY LANCET,SOFTCLIX Discontinued USE LANCET BIW FO R TESTING BLOOD GLUCOSE DIRECTED Jul 25, 2019 [id number] Nov 12, 2018 PAMELA RAMSEY LISINOPRIL 40MG TAB Non- VA TAKE ONE-HALF TABLET BY MOUTH EVERY MORNING Non-VA Documented by: PAMELA RAMSEY nted at: [facility] LORATADINE/PSEUDOEPHEDRINE TAB,SA Non-VA TAKE BY MOUTH No n-VA Documented by: JUAN LANGume nted at: [facility] [place] [facility] MAGNESIUM OXIDE 400MG TAB Non-VA TAKE [...] ACID (REPLACES ACIPHEX) 180 Dec 19, 2019 [id number] August 26, 2019 PAMELA RAMSEY POLYETHYLENE GLYCOL [...] Non-VA Documented by: KATHERINE MATT nted at: [facility] PREGABALIN 150MG CAP,ORAL Non-VA TAKE 1 CAPSULE BY MOUTH TWO TIMES A DAY Non-VA Docume nted by: PAMELA RAMSEY nted at: [facility] SEMAGLUTIDE INJ,SOLN Non -VA INJECT SUBCUTANEOUSLY EVERY WEEK Non-VA Documented by: ANAYELI KIRKPATRICKume nted at: [facility] [place] [facility] TERBINAFINE HCL 1% CREAM,TOP Active APPLY LIGHT LY TO AFFECTED AREA TWO TIMES A DAY FOR INFECTION 90 Sep 23, 2020 [id number] Sep 24, 2019 ADRIEL HERNANDEZ [facility] UREA 20% CREAM,TOP Active APPLY LIGHTLY (20%) TO AFFECTED AREA TWO TIMES A DAY NEEDED TO PROMOTE HEALING,RUB IN UNTIL COMPLETELY ABSORBED*FOR TOPICAL USE ONLY* APPLY TO BOTH FEET DIRECTED. 90 Sep 25, 2020 [id number] Sep 26, 2019 ADRIEL HERNANDEZ CB Problems [...] Alcohol intake above recommended sensible limits Active [id number] PADMA LONG [facility] Allergic conjunctivitis Active 629920748 COLINNDEA [facility] Bilateral senile combined form cataracts of eyes Active 60680221370 9108 [place] CANYONNEDA [facility] Bilateral tinnitus Active 4972660217798 CHASTITY JEAN [facility] Coronary arteriosclerosis Active 42667789 September 08, 2014 Entered By: PADMA LONG Comment: hx of ptca to RCA several yrs. agoSeptember 08, 2014 Entered By: PADMA LONG Comment: heart cath 09/01/14, neg. / previous stent to RCA,, via abida emneses ks HATCHER, JENNEY R ROBERT [facility] Diabetes mellitus Active 46956690 PAMELA RAMSEY [facility] Disorder of pancreas Active 3383097 September 08, 2014 Entered By: PADMA LONG Comment: 2.5cm low density lseion in bodyMay 2014 Entered By: PADMA LONG Comment: question of communication with pancreatic ductMay 2014 Entered By: PADMA LONG Comment: favored to be cystic pancreatic cancerSeptember 08, 2014 Entered By: PADMA LONG Comment: per abdominal CT 09/01/14, via abida meneses ks FRAZIER, JAY J [facility] Dry eyes Active 664651581 NEDA SHAW [facility] Gastro-esophageal reflux disease without esophagitis ( SNOMED CT 505106292) Active 640586526 ALF GUEVARA [facility] History of malignant neoplasm of lung Active 880938018 CHAPO BARRETO [facility] Hyperlipidemia (SNOMED CT 23505317) Active 58066747 BRAULIOPAMELA [facility] Lung mass Active 678682144 September 08, 2014 E ntered By: PADMA LONG Comment: 4.5 cm mass, post. segment right upper lobe.September 08, 2014 Entered By: PADMA LONG Comment: mild adenopathy in mediastinum and bilat. [email or web address] Entered By: PADMA LONG Comment: most likely related to lung cancerMa2014 Entered By: PADMA LONG Comment: per ct angio of chest with contrast 09/01/14,[facility] Entered By: PADMA LONG Comment: per path report- mod. differentiated bronchogenic adenoca. 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 Active 62257696 KATHERINE MATT [facility] Obesity Active 649225480 SONG BULLOCK [facility] Obstructive sleep apnea syndrome (SNOMED CT 68645386) Active 401762 015 [place] [facility] Pancreatic cyst Active 06944402 JAYLENE GUEVARA [facility] Papilloma of right eyelid Active [id number] NEDA SHAW [facility] Polyp of colon Active 41982567 Jan 23 16 Entered By: PADMA LONG Comment: c-scope 01/17/16, multiple benign colonic polypsJun 28, 2017 Entered By: PADMA LONG Comment: c-scope,06/25/17,[facility], three benign polyps- sigmoid colon, transverse colon,cecum. see path report cprs SHARRON TORRES [facility] Pulmonary emphysema Active 68617134 0 BRIANA [place] [facility] Sensorineural hearing loss, bilateral Active 827776147 CHASTITY JEAN [facility] Snoring Active 63596249 SONG BULLOCK [facility] Type 2 diabetes mellitus without complication Active 191238471 NEDA SHAW [facility] Environmental Allergies (ICD-9-CM 477.9) Inactive 477.9 Dec 18, 2017 PADMA LONG [facility] External hemorrhoids without mention of complication (ICD-9- CM 455.3) Inactive 455.3 Dec 18, 2017 [facility] Impotence of organic origin (ICD-9-CM 607.84) Inactive 607.84 Dec 18, 2017 [facility]AD[facility] LONG [facility] Screening for Lipoid disorders (ICD-9-CM V77.91) Inactive V77.91 Jan 18, 2007 PADMA LONG [facility] Stye * (ICD-9-CM 373.11) Inactive 373.11 Dec 18, 201 8 Jan 18, 2007 Entered By: PADMA LONG Comment: bilat lower lids, chronic/recurrent PADMA LONG [facility] Tobacco Use Disorder, Continuous Inactive 305.1 Dec 18, 2017 Jan 18, 2007 Entered By: PADMA LONG Comment: one ppd PADMA LONG [facility] Radiology Reports: +/- 30 days of the [...] DATE: DEC 26, 2018@11:28:52 AUTHOR: ANA CONKLIN COSIGNER: URGENCY: STATUS: COMPLETED [place]-TELEPHONE/SPECIALTY Has ADDENDA [place] phoned clinic to report he has completed [...] about pad replacement. Prosthetics extension provided and [place] transferred via phone. Alerting provider to home traction unit request if deemed appropriate. /gisell/ ANA CONKLIN RN Signed: 12/26/2018 11:34 Receipt Acknowledged By: 01/13/2019 12:01 /gisell/ JANUARY HILLMAN PA-C 01/13/2019 ADDENDUM STATUS: COMPLETED Home traction unit ordered though PT. /gisell/ JANUARY HILLMAN PA-C Signed: 01/13/2019 12:05 Receipt Acknowledged By: * AWAITING SIGNATURE * ANA CONKLIN SARAH L ROBERT J. DOLE [facility]
--- OUTSIDE RECORDS SUMMARY | 2019-12-02 07:37 | XMS REPORT | Encounter Summary ---
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 Date/Time Primary/Secondary Diagnosis Diagnosis Name Provider Source Dec 18, 2018 08:52 AM PRIMARY Gastro-esophageal reflux disease without esophagitis CHERRIE JONES [facility] Dec 18, 2018 08:52 AM SECONDARY Mixed hyperlipidemia LOREN JONES [facility] Dec 18, 2018 08:52 AM SECONDARY Obesity, unspecified LOREN JONES [facility] Dec 18, 2018 08:52 AM SECONDARY Type 2 diabetes me llitus with unspecified complications CHERRIE JONES [place] [facility] Plan of Treatment: Future Appointments (+ [...] The data comes from all [place] treatment [facility]. Appointment Date/Time Appointment Type Appointment Facili ty Name Jan 06, 2019 11:00 AM AMBULATORY - NONE [facility] Jan 31, 2019 09:00 AM AM[facility]ORY [facility]ICINE [facility] Mar 10, 2019 12:30 PM AMBULATORY - SURGERY [facility] Mar 21, 2019 09:15 AM AMBULATORY - NONE [facility] Mar 21, 2019 09:30 AM AMBULATORY - MEDICINE [facility] Mar 21, 2019 09:31 AM AMBULATORY - MEDICINE [facility] BL[facility] Mar 21, 2019 10:00 AM AMBULATORY - MEDICINE [facility] Mar 21, 2019 10:01 AM AMBULATORY - MEDICINE [facility] Mar 26, 2019 10:00 AM [facility] Apr 03, 2019 10:00 AM AM[facility]ULAT[facility] - SURGERY ARTUR BLAS [facility] Apr 14, 2019 10:00 AM AMBULATORY - SURGERY [facility] Apr 28, 2019 11:00 AM AMBULATORY - NONE ARTUR BLAS [facility] Surgical Procedures: All associated to the [...] Range Comment Dec 18, 2018 08:45 AM [facility] CBC & DIFF Specimen Type: [...] < 5 ug/mL *MICROALB/CREAT canc mcg/mg cr *PROT/TECHNOLOGY ARCHITECT RATIO 0.1 *UR PROTEIN 8 mg/dL *UR [...] 3 71 in 225.7 lb 32 [place] [facility] Dec 18, 2018 08:29 AM 3 [...] took place. Date/Time Smoking Status/Tobacco Use Comment [facility] it Nov 23, 2017 09:51 AM CURRENT TOBACCO USER (READY TO QUIT) [place] [facility] Nov 23, 2017 09:51 AM TOBACCO CESSATION REFERRAL DECLINED [facility] Nov 23, 2017 09:51 AM TOBACCO USER OFFERED MEDS [facility] Dec 18, 2016 08:55 AM NON-TOBACCO USER [place] [facility] Dec 01, 2005 08:32 AM CURRENT NON-SMOKER [place] [facility] Dec 01, 2005 08:32 AM LIFETIME NON-SMOKER [facility] Dec 01, 2005 08:32 AM LIFETIME NON-TOBACCO USER [facility] Dec 01, 2005 08:32 AM NON-SMOKER [place] [facility] Dec 01, 2005 08:32 AM NON-TOBACCO [...] the patient. The data comes from a [facility] treatment facilities. It does not [...] adverse reactions to drug (diso rder) [facility], VISN 15 Medications: VA dispensed (-15 months) [...] TEST BLOOD GLUCOSE 50 Dec 19, 2019 [id number] September 04, 2019 PAMELA RAMSEY ACCU-CHEK CHARLES PLUS (GLUCOSE) TEST STRIP Discontinued USE 1 STRIP FOR TESTING TWO TIMES PER WEEK - DIRECTED TO TEST BLOOD GLUCOSE 50 Jul 25, 2019 [id number] Nov 12, 2018 PAMELA RAMSEY ALBUTEROL SO4 90MCG/ACTUAT (CFC-F) INHL,ORAL,6.7GM Active INHALE 2 PUFFS BY ORAL INHALATION EVERY 4 HOURS NEEDED FOR BREATHING. SHAKE WELL. RINSE MOUTHPIECE FREQUENTLY TO PREVENT CLOGGING. USE NEEDED FOR SHORTNESS OF AIR/WHEEZING FOR BREATHING. SHAKE WELL. RINSE MOUTHPIECE FREQUENTLY TO PREVENT CLOGGING. USE NEEDED FOR SHORTNESS OF AIR/WHEEZING 1 Dec 19, 2019 [id number] September 04, 2019 PAMELA RAMSEY [facility] ALCOHOL PREP PAD Active USE 1 PAD ON SKIN BIW TO CLEAN AND DISINFECT THE SKIN 200 Sep 29, 2020 [id number] Sep 30, 2019 MAURICIO RANKIN [facility] ALCOHOL PREP PAD Discontinued USE 1 PAD ON SKIN BI W TO CLEAN AND DISINFECT THE SKIN 200 Dec 19, 2019 [id number] Jun 06, 2019 PAMELA RAMSEY CBGUILLERMO ALCOHOL PREP PAD Discontinued USE 1 PAD ON SKIN BI W TO CLEAN AND DISINFECT THE SKIN 200 Jul 25, 2019 [id number] Nov 12, 2018 PAMELA RAMSEY [facility] ASCORBIC ACID 250MG TAB Non-VA TAKE ONE TABLET BY MOUTH ONCE A DAY Non-VA Documented by: SHANIQUA SCHMIDT nted at: [facility] ASPIRIN 25MG/DIPYRIDAMOLE 200MG CAP,SA Active T CHAPIN 1 CAPSULE BY MOUTH TWO TIMES A DAY - SWALLOW WHOLE. DO NOT CRUSH OR CHEW. FOR RECURRENT TIA/STROKE 180 Dec 19, 2019 [id number] Dec 20, 2018 PAMELA RAMSEY [facility] ASPIRIN 25MG/DIPYRIDAMOLE 200MG CAP,SA Discontinued T CHAPIN 1 CAPSULE BY MOUTH TWO TIMES A DAY - SWALLOW WHOLE. DO NOT CRUSH OR CHEW. FOR RECURRENT TIA/STROKE 180 Feb 06, 2019 [id number] Sep 28, 2018 ZACHARY GRECO ASPIRIN 81MG TAB,EC Non- VA TAKE ONE TABLET BY MOUTH ONCE A DAY Non-VA Documented by: PADMA LONG nted at: [facility] ATORVASTATIN CA 80MG TAB Active TAKE ONE TABLET BY MOUTH AT BEDTIME FOR CHOLESTEROL - REPORT ANY UNEXPLAINED MUSCLE PAIN/WEAKNESS TO YOUR PROVIDER 90 Dec 19, 2019 [id number] September 04, 2019 PAMELA RAMSEY ATORVASTATIN CA 80MG TAB Discontinued TAKE ONE TABLET BY MOUTH AT BEDTIME FOR CHOLESTEROL - REPORT ANY UNEXPLAINED MUSCLE PAIN/WEAKNESS TO YOUR PROVIDER 90 Dec 20, 2018 [id number] Nov 12, 2018 PAMELA RAMSEY BUDESONIDE 160MCG/FORMOTEROL FUM 4.5MCG/SPRAY INHL,ORAL,10.2 GM Active INHALE 2 PUFFS BY MOUTH TWO TIMES A DAY FOR BREATHING. SHAKE WELL. RINSE MOUTH AND SPIT AFTER EACH USE. 3 Apr 24, 2020 [id number] August 22, 2019 LISSA OATES [facility] CALCIUM/VITAMIN D TAB No n-VA TAKE BY MOUTH ONCE A DAY Non-V A Documented by: PADMA LONG nted at: [facility] CARBOXYMETHYLCELLULOSE NA 0.5% SOLN,OPH Active INSTILL ONE DROP IN BOTH EYES FOUR TIMES A DAY FOR DRY EYES 15 Feb 01, 2020 [id number] September 03 0 NEDA SHAW [facility] DICLOFENAC NA 1% GEL,TOP Discontinued APPLY 2 GRAMS A FFECTED AREA TWO TIMES A DAY NEEDED FOR PAIN AND INFLAMMATION. DO NOT EXCEED 16GM DAILY TO ANY AFFECTED JOINT OF LOWER EXTREMITIES. DO NOT EXCEED 8GM DAILY TO ANY AFFECTED JOINT OF UPPER EXTREMITES. DO NOT EXCEED TOTAL DOSE OF 32GM DAILY FOR ALL JOINTS. 100 Oct 31, 2018 [id number] Oct 06, 2018 ANA[facility]ELI [facility]RICK [facility] [...] FOR ALL JOINTS. 100 Jan 17, 2019 [id number] Dec 20, 2018 PAMELA RAMSEY FLUTICASONE PROPIONATE 50MCG/SPRAY SOLN,NASAL,16GM Active INSTILL 1 SPRAY IN EACH NOSTRIL ONCE A DAY SHAKE GENTLY BEFORE USE! - MUST BE USED DIRECTED FOR 3 WEEKS TO PROVIDE BENEFIT. * NO EARLY REFILLS * 1UNIT = 30DAYS AT 4 PF/DAY OR 60DAYS AT 2PF/DAY 2 Dec 19, 2019 [id number] August 26, 2019 PAMELA RAMSEY KETOTIFEN 0.025% SOLN,OPH Active INSTILL 1 DROP IN BOTH EYES TWO TIMES A DAY FOR RELIEF OF ALLERGY SYMPTOMS IN EYE(S) 10 Feb 01, 2020 [id number] September 04, 2019 NEDA SHAW [facility] LANCET,SOFTCLIX Active USE LANCET BIW FOR TESTING BL OOD GLUCOSE DIRECTED 100 Sep 29, 2020 [id number] Sep 30, 2019 MAURICIO RANKIN [facility] LANCET,SOFTCLIX Discontinued USE LANCET BIW FO R TESTING BLOOD GLUCOSE DIRECTED 100 Dec 19, 2019 [id number] Jun 06, 2019 PAMELA RAMSEY [facility] LANCET,SOFTCLIX Discontinued USE LANCET BIW FO R TESTING BLOOD GLUCOSE DIRECTED Jul 25, 2019 [id number] Nov 12, 2018 PAMELA RAMSEY LISINOPRIL 40MG TAB Non- VA TAKE ONE-HALF TABLET BY MOUTH EVERY MORNING Non-VA Documented by: PAMELA RAMSEY nted at: [facility] LORATADINE/PSEUDOEPHEDRINE TAB,SA Non-VA TAKE BY MOUTH No n-VA Documented by: JUAN LANG nted at: ARTUR BLAS [facility] MAGNESIUM OXIDE 400MG TAB Non-VA TAKE ONE [...] ACID (REPLACES ACIPHEX) 180 Dec 19, 2019 [id number] August 26, 2019 PAMELA RAMSEY POLYETHYLENE GLYCOL [...] Documented by: KATHERINE MATT Docume nted at: [facility] PREGABALIN 150MG CAP,ORAL Non-VA TAKE 1 CAPSULE BY MOUTH TWO TIMES A DAY Non-VA Docume nted by: PAMELA RAMSEY Docume nted at: [facility] SEMAGLUTIDE INJ,SOLN Non -VA INJECT SUBCUTANEOUSLY EVERY WEEK Non-VA Documented by: ANAYELI KIRKPATRICK Docume nted at: [facility] TERBINAF[facility] HCL 1% CREAM,TOP Active APPLY LIGHT LY TO AFFECTED AREA TWO TIMES A DAY FOR INFECTION Sep 23, 2020 [id number] Sep 24, 2019 ADRIEL HERNANDEZ UREA 20% CREAM,TOP Active APPLY LIGHTLY (20%) TO AFFECTED AREA TWO TIMES A DAY NEEDED TO PROMOTE HEALING,RUB IN UNTIL COMPLETELY ABSORBED*FOR TOPICAL USE ONLY* APPLY TO BOTH FEET DIRECTED. Sep 25, 2020 [id number] Sep 26, 2019 ADRIEL HERNANDEZ Problems (Conditions): [...] Alcohol intake above recommended sensible limits Active 038844980 [facility] Allergic conjunctivitis Active 061571487 [facility] Bilateral senile combined form cataracts of eyes Active [id number] [address] [facility] Bilateral tinnitus Active [id number] [facility] Coronary arteriosclerosis Active 30520663 September 08, 2014 Entered By: PADMA LONG Comment: hx of ptca to RCA several yrs. agoSeptember 08, 2014 Entered By: PADMA LONG Comment: heart cath 09/01/14, neg. / previous stent to RCA,, [place] KAREN,JENNEY R [facility] Diabetes mellitus Active 69171518 PAMELA RAMSEY [facility] Disorder of pancreas Active 0923720 September 08, 2014 Entered By: PADMA LONG Comment: 2.5cm low density lseion in bodyMay 2014 Entered By: PADMA LONG Comment: question of communication with pancreatic ductMay 2014 Entered By: PADMA LONG Comment: favored to be cystic pancreatic cancerMay 2014 Entered By: PADMA LONG Comment: per abdominal CT 09/01/14, [place] FRAZIER, JAY J [facility] Dry eyes Active 596128548 [facility] SHAW [facility] Gastro-esophageal reflux disease without esophagitis ( SNOMED CT 789632906) Active 767043385 ALF GUEVARA [facility] History of malignant neoplasm of lung Active 207385399 CHAPO BARRETO [facility] Hyperlipidemia (SNOMED CT 45706965) Active 46358426 BRAULIOPAMELA TOMAS [facility] Lung mass Active 546477695 September 08, 2014 E ntered By: PADMA [...] mod. differentiated bronchogenic adenoca. 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 Active 71161982 KATHERINE MATT [facility] Obesity Active 903337258 SONG BULLOCK [facility] Obstructive sleep apnea syndrome (SNOMED CT 63611054) Active 083218 015 PHILIPPE DOUGLASS [facility] Pancreatic cyst Active 72019232 JAYLENE GUEVARA [facility] Papilloma of right eyelid Active [id number] NEDA SHAW [facility] Polyp of colon Active 90342534 Jan 23 Entered By: PADMA LONG Comment: c-scope 01/17/16, multiple benign colonic polypsJun 28, 2017 Entered By: PADMA LONG Comment: c-scope,06/25/17,[facility], three benign polyps- sigmoid colon, transverse colon,cecum. see path report cprs SHARRON TORRES [facility] Pulmonary emphysema Active 12484393 0 BRIANA GAVIN [facility] Sensorineural hearing loss, bilateral Active 820809049 CHASTITY JEAN [facility] Snoring Active 91121987 SONG BULLOCK [facility] Type 2 diabetes mellitus without complication Active 300800008 NEDA SHAW [facility] Environmental Allergies (ICD-9-CM 477.9) Inactive 477.9 Dec 18, 2017 PADMA LONG [facility] External hemorrhoids without mention of complication (ICD-9- CM 455.3) Inactive 455.3 Dec 18, 2017 PADMA LONG [facility] Impotence of organic origin (ICD-9-CM 607.84) Inactive 607.84 Dec 18, 2017 PADMA LONG [facility] Screening for Lipoid disorders (ICD-9-CM V77.91) Inactive V77.91 Jan 18, 2007 PADMA LONG [facility] Stye * (ICD-9-CM 373.11) Inactive 373.11 Dec 18, 201 8 Jan 18, 2007 Entered By: PADMA LONG Comment: bilat lower lids, chronic/recurrent [facility] Tobacco Use Disorder, Continuous Inactive 305.1 Dec 18, 2017 Jan 18, 2007 Entered By: PADMA LONG Comment: one PADMA Yu [facility] Radiology Reports: +/- 30 days of the encounter No Data Provided for This Section Pathology Reports: +/- 30 days of the encounter No Data Provided for This Section Encounter Notes: All associated encounter notes This section contains the clinical notes associated to the Encounter. Date/Time Encounter Note(s) Provider Source Dec 18, 2018 08:51 AM MEDICATION MGT NOTE: LOCAL TITLE: WI-MEDICATION RECONCILIATION (BP,O) STANDARD TITLE: MEDICATION MGT NOTE DATE OF NOTE: DEC 18, 2018@08:51 ENTRY DATE: DEC 18, 2018@08:51:45 AUTHOR: PAMELA RAMSEY COSIGNER: URGENCY: STATUS: COMPLETED MEDICATION RECONCILIATION Allergies: [...] 08:46 AM NURSE PRACTITIONER NOTE: LOCAL TITLE: WI-TELECOMMUNICATION OPERATOR/NURSE/CBOC STANDARD TITLE: NURSE PRACTITIONER NOTE DATE OF NOTE: DEC 18, 2018@08:46 ENTRY DATE: DEC 18, 2018@08:46:40 AUTHOR: PAMELA RAMSEY EXP COSIGNER: URGENCY: STATUS: COMPLETED WI-TELECOMMUNICATION OPERATOR/NURSE/CBOC Has ADDENDA cc:annual HPI:He is inquiring what is next plan of care regarding pain management. He is an active patient with pain management and [facility] advised to contact them. Past Medical/Surgical History: Computerized Problem List is the source for the followin. Gastro-esophageal reflux disease with out 10/20/15 JAYLENE GUEVARA esophagitis (SNOMED CT 926547054) 2. Hyperlipidemia (SNOMED CT 78445938) 12/18/17 APMELA RAMSEY 3. Diabetes mellitus 12/18/17 PAMELA RAMSEY 4. Coronary arteriosclerosis 03/15/18 KALA JONES hx of ptca to RCA several yrs. ago heart cath 09/01/14, neg. / previous stent to RCA,, [place] 5. 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 Lung mass 09/23/14 PADMA LONG 4.5 cm mass, post. segment right upper lobe. mild adenopathy in mediastinum and bilat. darby most likely related to lung cancer per ct angio of chest with contrast 09/01/14,via [facility] per path report- mod. differentiated bronchogenic adenoca. 7. Pulmonary emphysema 01/17/16 0 8. Alcohol intake above recommended sens ible 09/08/14 PADMA LONG limits 9. Pancreatic cyst 03/17/15 JAYLENE GUEVARA 10. Polyp of colon 06/28/17 SHARRON TORRES c-scope 01/17/16, multiple benign colonic polyps c-scope,06/25/17,[facility], three benign polyps- sigmoid colon, transverse colon,cecum. see path report cprs 11. Obstructive sleep apnea (SNOMED CT 7 1814174) 03/21/18 PHILIPPE DOUGLASS 12. Snoring 12/27/17 SONG BULLOCK 13. Obesity 12/27/17 SONG BULLOCK 14. Sensorineural hearing loss, bilatera l 02/04/18 SLEDGE,CHASTITY A 15. Bilateral tinnitus 02/04/18 SLEDGE,CHASTITY A Preventative Services: Diabetes A1C:Pending PSA:pending ROS: [...] pain 4. GERD 5. Obesity lab pending AL-RT PROVIDER CLINIC: Return to Clinic. /frida RAMSEY Signed: 12/18/2018 08:51 12/19/2018 ADDENDUM STATUS: COMPLETED Labs reviewed A1C 6.7, trigs 190. Forward labs to Reji Hinojosa APRN for diabetic medicaiton adjsutment. Diabetic diet. Repeat A1C 3 months. He remains out of goal. /frida RAMSEY Signed: 12/19/2018 08:07 Receipt Acknowledged By: 12/19/2018 09:47 /gisell/ ANA Camarena [facility]OC[facility] 12/19/2018 ADDENDUM STATUS: COMPLETED letter sent to pt along with lab results of providers orders. also sent a copy to Ashish Mendoza APRN for review. /gisell/ ANA CELIS HOSPITALITY ASSOCIATE Signed: 12/19/2018 10:00 PAMELA RAMSEY [facility] Dec 18, 2018 08:26 AM NURSING OUTPATIENT [...] today? *Required No Are you registered for [employer] ([employer])? No - Are you interested in registering? No If 'yes' please hand [employer] brochure. WI-FOOT EXAM (PAVE): Foot Assessment VISUAL [...] denies latex allergy. VISN 15-INFLUENZA IMMUNIZATION : [phone] INFLUENZA IMMUNIZATION V1.0 Vaccine not given: Patient indicated influenza vaccination was received at another facility. Date: December, Exact date is unknown Location: [facility] WI-DIAG RESULT (PERSON OR PHONE): Results will [...] today. Community resources (If referral -- to [facility]/) ...No When/how to obtain further treatment? ...Yes [...] weight management program at this time. /gisell/ NAA CELIS LPN Signed: 12/18/2018 08:36 ANA CELIS OC
--- OUTSIDE RECORDS SUMMARY | 2019-12-02 07:38 | XMS REPORT | Encounter Summary ---
Author Author [facility] Organization [facility] Address [address] [place] [address] Phone Unavailable Care Team Providers Care Pharmacy Technician Inpatient Name Role Phone ADRIEL HERNANDEZ PCP Unavailable Insurance Providers: All historical and current No Data Provided for This Section Selected Encounter This section includes the information on record at [place] for the Encounter. Date/Time Encounter Type Encounter Description Reason Provider Source Dec 05, 2018 12:04 PM Outpatient Encounter TELEPHONE BY STAFF ICD-10-CM I25.10 [facility] heart disease of [place] coronary artery w/o jaden muñoz with Provider Comments: Atherosclerotic Heart Disease of [place] Coronary Artery without Angina Pectoris KALA JONES [facility] IHE Encounter Template Text not used by [place] Assessments - Encounter Diagnoses This section includes the primary and secondary diag noses documented for the Encounter. Date/Time Primary/Secondary Diagnosis Diagnosis Name Provider Source Dec 05, 2018 12:04 PM PRIMARY [facility] heart disea se of [place] coronary artery w/o jaden pctKALA Hammond [facility] Plan of Treatment: Future Appointments [...] 2018 10:00 AM [facility] Dec 18, 2018 10:01 AM AMBULATORY - NONE [facility] Jan 06, 2019 11:00 AM [facility] Jan 31, 2019 09:00 AM AMBULATORY - MEDICINE [facility] Mar 10, 2019 12:30 PM AMBULATORY - SURGERY [facility] Mar 21, 2019 09:15 AM AMBULATORY - NONE [facility] Mar 21, 2019 09:30 AM AMBULATORY - MEDICINE [facility] Mar 21, 2019 09:31 AM AMBULATORY - MEDICINE ARTUR LaresJuan M SIMSMila [facility] Mar 21, 2019 10:00 AM AMBULATORY - MEDICINE [facility] Mar 21, 2019 10:01 AM AMBULATORY - MEDICINE ARTUR LaresJuan M [facility] Mar 26, 2019 10:00 AM AMBULATORY - NONE [facility] Apr 03, 2019 10:00 AM AMBULATORY - SURGERY [facility] Apr 14, 2019 10:00 AM AMBULATORY - SURGERY [facility] Apr 28, 2019 11:00 AM AMBULATORY - NONE ARTUR BLAS [facility] Surgical Procedures: All associated to the [...] Dec 18, 2018 08:45 AM [facility] CBC & DIFF Specimen Type: [...] Dec 18, 2018 08:45 AM [facility] COMPREHENSIVE METABOLIC PA KELLE Specimen Type: [...] Dec 18, 2018 08:45 AM [facility] LIPID PROFILE(HDL,TRIG,CHO L,LDL) Specimen Type: PLASMA [...] < 5 ug/mL *MICROALB/CREAT canc mcg/mg cr *PROT/CLINICAL STATISTICS MANAGER RATIO 0.1 *UR PROTEIN 8 mg/dL *UR [...] 15 YRS OR MORE PORSHA BLAS [facility] Tobacco Use History This section includes a history of the smoking, or tobacco -related health factors, that were collected on or before the date of the Encoun ter. The data comes from the [place] facility where the Encounter took place. Date/Time Smoking Status/Tobacco Use Comment [facility] Jun 26, 2018 02:13 PM VA-TOBACCO QUIT 15 YRS OR MORE PORSHA BLAS [facility] Jun 27, 2017 01:39 PM NON-TOBACCO USER ARTUR LaresJuan M SIMSMila TRAN [facility] Jun 27, 2017 01:16 PM NON-TOBACCO USER [facility]resJuan M [facility] Jan 06, 2015 02:07 PM NON-TOBACCO USER [facility]UR LaresJuan M [facility] Nov 23, 2014 10:38 AM NON-TOBACCO USER ARTUR LaresJuan M SIMSMila [facility] Oct 26, 2014 10:36 AM NON-TOBACCO USER ARTUR LaresJuan M [place] FOREINGLloyd C Oct 14, 2014 11:09 AM NON-TOBACCO [...] patient. The data comes from a [facility] treatment facilities. It does not list Allergies/ADRs that were removed or entered in error. Some allergies/ADRs may be reported in t Immunization section. Allergen Event Date Event Type Reaction(s) Severity Source [place] September 08, 2014 Propensity to adverse reactions to drug (diso rder) [facility] 15 [place] September 08, 2014 Propensity to adverse reactions to drug (diso rder) [facility] Medications: [facility] dispensed [...] may be a prescription from either the [place] or other providers that was filled outside [...] TEST BLOOD GLUCOSE 50 Dec 19, 2019 [id number] September 04, 2019 PAMELA RAMSEY ACCU-CHEK CHARLES PLUS (GLUCOSE) TEST STRIP Discontinued USE 1 STRIP FOR TESTING TWO TIMES PER WEEK - DIRECTED TO TEST BLOOD GLUCOSE 50 Jul 25, 2019 [id number] Nov 12, 2018 PAMELA RAMSEY CB ALBUTEROL SO4 90MCG/ACTUAT (CFC-F) INHL,ORAL,6.7GM Active INHALE 2 PUFFS BY ORAL INHALATION EVERY 4 HOURS NEEDED FOR BREATHING. SHAKE WELL. RINSE MOUTHPIECE FREQUENTLY TO PREVENT CLOGGING. USE NEEDED FOR SHORTNESS OF AIR/WHEEZING FOR BREATHING. SHAKE WELL. RINSE MOUTHPIECE FREQUENTLY TO PREVENT CLOGGING. USE NEEDED FOR SHORTNESS OF AIR/WHEEZING 1 Dec 19, 2019 [id number] September 04, 2019 PAMELA RAMSEY ALCOHOL PREP PAD Active USE 1 PAD ON SKIN BIW TO CLEAN AND DISINFECT THE SKIN 200 Sep 29, 2020 [id number] Sep 30, 2019 MAURICIO RANKIN [facility] ALCOHOL PREP PAD Discontinued USE 1 PAD ON SKIN BI W TO CLEAN AND DISINFECT THE SKIN 200 Dec 19, 2019 [id number] Jun 06, 2019 PAMELA RAMSEY CBGUILLERMO ALCOHOL PREP PAD Discontinued USE 1 PAD ON SKIN BI W TO CLEAN AND DISINFECT THE SKIN 200 Jul 25, 2019 [id number] Nov 12, 2018 PAMELA RAMSEY ASCORBIC ACID 250MG TAB Non-VA TAKE ONE TABLET BY MOUTH ONCE A DAY Non-VA Documented by: SHANIQUA SCHMIDT nted at: [facility] ASPIRIN 25MG/DIPYRIDAMOLE 200MG CAP,SA Active T CHAPIN 1 CAPSULE BY MOUTH TWO TIMES A DAY - SWALLOW WHOLE. DO NOT CRUSH OR CHEW. FOR RECURRENT TIA/STROKE 180 Dec 19, 2019 [id number] Dec 20, 2018 PAMELA RAMSEY [facility] ASPIRIN 25MG/DIPYRIDAMOLE 200MG CAP,SA Discontinued T CHAPIN 1 CAPSULE BY MOUTH TWO TIMES A DAY - SWALLOW WHOLE. DO NOT CRUSH OR CHEW. FOR RECURRENT TIA/STROKE 180 Feb 06, 2019 [id number] Sep 28, 2018 ZACHAYR GRECO [facility] ASPIRIN 81MG TAB,EC Non- [facility] TAKE ONE TABLET BY MOUTH ONCE A DAY Non-VA Documented by: PADMA LONG nted at: [facility] ATORVASTATIN CA 80MG TAB Active TAKE ONE TABLET BY MOUTH AT BEDTIME FOR CHOLESTEROL - REPORT ANY UNEXPLAINED MUSCLE PAIN/WEAKNESS TO YOUR PROVIDER 90 Dec 19, 2019 [id number] September 04, 2019 PAMELA RAMSEY ATORVASTATIN CA 80MG TAB Discontinued TAKE ONE TABLET BY MOUTH AT BEDTIME FOR CHOLESTEROL - REPORT ANY UNEXPLAINED MUSCLE PAIN/WEAKNESS TO YOUR PROVIDER 90 Dec 20, 2018 [id number] Nov 12, 2018 PAMELA RAMSEY BUDESONIDE 160MCG/FORMOTEROL FUM 4.5MCG/SPRAY INHL,ORAL,10.2 GM Active INHALE 2 PUFFS BY MOUTH TWO TIMES A DAY FOR BREATHING. SHAKE WELL. RINSE MOUTH AND SPIT AFTER EACH USE. 3 Apr 24, 2020 [id number] August 22, 2019 LISSA OATES [facility] CALCIUM/VITAMIN D TAB No n-VA TAKE BY MOUTH ONCE A DAY Non-V A Documented by: PADMA LONG nted at: [facility] CARBOXYMETHYLCELLULOSE NA 0.5% SOLN,OPH Active INSTILL ONE DROP IN BOTH EYES FOUR TIMES A DAY FOR DRY EYES 15 Feb 01, 2020 [id number] September 03 0 [facility] DICLOFENAC NA 1% GEL,TOP Discontinued APPLY 2 GRAMS A FFECTED AREA TWO TIMES A DAY NEEDED FOR PAIN AND INFLAMMATION. DO NOT EXCEED 16GM DAILY TO ANY AFFECTED JOINT OF LOWER EXTREMITIES. DO NOT EXCEED 8GM DAILY TO ANY AFFECTED JOINT OF UPPER EXTREMITES. DO NOT EXCEED TOTAL DOSE OF 32GM DAILY FOR ALL JOINTS. 100 Oct 31, 2018 [id number] Oct 06, 2018 ANAYELI KIRKPATRICK [facility] DICLOFENAC NA 1% GEL,TOP APPLY 2 GRAMS A FFECTED AREA TWO TIMES A DAY NEEDED FOR PAIN AND INFLAMMATION. DO NOT EXCEED 16GM DAILY TO ANY AFFECTED JOINT OF LOWER EXTREMITIES. DO NOT EXCEED 8GM DAILY TO ANY AFFECTED JOINT OF UPPER EXTREMITES. DO NOT EXCEED TOTAL DOSE OF 32GM DAILY FOR ALL JOINTS. 100 Jan 17, 2019 [id number] Dec 20, 2018 PAMELA RAMSEY [facility] FLUTICASONE PROPIONATE 50MCG/SPRAY SOLN,NASAL,16GM Active INSTILL 1 SPRAY IN EACH NOSTRIL ONCE A DAY SHAKE GENTLY BEFORE USE! - MUST BE USED DIRECTED FOR 3 WEEKS TO PROVIDE BENEFIT. * NO EARLY REFILLS * 1UNIT = 30DAYS AT 4 PF/DAY OR 60DAYS AT 2PF/DAY 2 Dec 19, 2019 [id number] August 26, 2019 PAMELA RAMSEY KETOTIFEN 0.025% SOLN,OPH Active INSTILL 1 DROP IN BOTH EYES TWO TIMES A DAY FOR RELIEF OF ALLERGY SYMPTOMS IN EYE(S) Feb 01, 2020 [id number] September 04, 2019 [facility] LANCET,SOFTCLIX Active USE LANCET BIW FOR TESTING BL OOD GLUCOSE DIRECTED 100 Sep 29, 2020 [id number] Sep 30, 2019 MAURICIO RANKIN [facility] LANCET,SOFTCLIX Discontinued USE LANCET BIW FO R TESTING BLOOD GLUCOSE DIRECTED 100 Dec 19, 2019 [id number] Jun 06, 2019 PAMELA RAMSEY LANCET,SOFTCLIX Discontinued USE LANCET BIW FO R TESTING BLOOD GLUCOSE DIRECTED 100 Jul 25, 2019 [id number] Nov 12, 2018 PAMELA RAMSEY LISINOPRIL 40MG TAB Non- [place] TAKE ONE-HALF TABLET BY MOUTH EVERY MORNING Non-VA Documented by: PAMLEA RAMSEY nted at: [facility] LORATADINE/PSEUDOEPHEDRINE TAB,SA Non-VA TAKE BY MOUTH No n-VA Documented by: JUAN LANGume nted at: ARTUR BLAS [facility] MAGNESIUM OXIDE 400MG TAB Non-VA TAKE [...] ACID (REPLACES ACIPHEX) 180 Dec 19, 2019 [id number] August 26, 2019 PAMELA RAMSEY POLYETHYLENE GLYCOL [...] Non-VA Documented by: KATHERINE MATT nted at: [facility] PREGABALIN 150MG CAP,ORAL Non-VA TAKE 1 CAPSULE BY MOUTH TWO TIMES A DAY Non-VA Docume nted by: PAMELA RAMSEY nted at: [facility] SEMAGLUTIDE INJ,SOLN Non -VA INJECT SUBCUTANEOUSLY EVERY WEEK Non-VA Documented by: ANAYELI KIRKPATRICK nted at: ARTUR BLAS [facility] TERBINAFINE HCL 1% CREAM,TOP Active APPLY LIGHT LY TO AFFECTED AREA TWO TIMES A DAY FOR INFECTION 90 Sep 23, 2020 [id number] Sep 24, 2019 ADRIEL HERNANDEZ UREA 20% CREAM,TOP Active APPLY LIGHTLY (20%) TO AFFECTED AREA TWO TIMES A DAY NEEDED TO PROMOTE HEALING,RUB IN UNTIL COMPLETELY ABSORBED*FOR TOPICAL USE ONLY* APPLY TO BOTH FEET DIRECTED. 90 Sep 25, 2020 [id number] Sep 26, 2019 ADRIEL HERNANDEZ Problems (Conditions): [...] Alcohol intake above recommended sensible limits Active 169696382 PADMA LONG [facility] Allergic conjunctivitis Active 379614791 [facility] Bilateral senile combined form cataracts of eyes Active 49374105277 9108 [facility] Bilateral tinnitus Active [id number] CHASTITY JEAN [facility] Coronary arteriosclerosis Active [id number] September 08, 2014 Entered By: PADMA LONG Comment: hx of ptca to RCA several yrs. agoSeptember 08, 2014 Entered By: PADMA LONG Comment: heart cath 09/01/14, neg. / previous stent to RCA,, [place] HATCHER, JENNEY R [facility] Diabetes mellitus Active 81164085 PAMELA RAMSEY [facility] Disorder of pancreas Active 0140346 September 08, 2014 Entered By: PADMA LONG Comment: 2.5cm low density lseion in bodyMay 2014 Entered By: PADMA LONG Comment: question of communication with pancreatic ductMay 2014 Entered By: PADMA LONG Comment: favored to be cystic pancreatic cancerMay 2014 Entered By: PADMA LONG Comment: per abdominal CT 09/01/14, [place] PADMA LONG [facility] Dry eyes Active 277290133 [facility] Gastro-esophageal reflux disease without esophagitis ( SNOMED CT 694757639) Active 096388431 ALF GUEVARA [facility] History of malignant neoplasm of lung Active 550498401 CHAPO BARRETO [facility] Hyperlipidemia (SNOMED CT 98014324) Active 51252215 PAMELA RAMSEY [facility] Lung mass Active 902850465 September 08, 2014 E ntered By: PADMA LONG Comment: 4.5 cm mass, post. segment right upper lobe.September 08, 2014 Entered By: PADMA LONG Comment: mild adenopathy in mediastinum and bilat. hilaMay 2014 Entered By: PADMA LONG Comment: most likely related to lung cancerMay 2014 Entered By: PADMA LONG Comment: per ct angio of chest with contrast 09/01/14,[place] Entered By: PADMA LONG Comment: per path report- mod. differentiated bronchogenic adenoca. 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 Obstructive sleep apnea syndrome (SNOMED CT 16477226) Active 238670 015 [facility] Pancreatic cyst Active 92534386 JAYLENE GUEVARA [facility] Papilloma of right eyelid Active 300040732920708 N[facility]AW [facility] Polyp of colon Active 48738018 Jan 23 Entered By: PADMA LONG Comment: c-scope 01/17/16, multiple benign colonic polypsMar 2017 Entered By: PADMA LONG Comment: [facility] benign polyps- sigmoid colon, transverse colon,cecum. see path report cprs SHARRON TORRES [facility] Pulmonary emphysema Active 90423904 0 BRIANA GAVIN [facility] Sensorineural hearing loss, bilateral Active 540968997 TEDCHASTITY A [facility] Snoring Active 52572190 [facility] Type 2 diabetes mellitus without complication Active 818624736 LISSETTE SHAWA Luda [facility] Environmental Allergies (ICD-9-CM 477.9) Inactive 477.9 Dec 18, 2017 PADMA LONG [facility] External hemorrhoids without mention of complication (ICD-9- CM 455.3) Inactive 455.3 Dec 18, 2017 PADMA LONG [facility] Impotence of organic origin (ICD-9-CM 607.84) Inactive 607.84 Dec 18, 2017 PADMA LONG [facility] Screening for Lipoid disorders (ICD-9-CM V77.91) Inactive V77.91 Jan 18, 2007 [facility] Stye * (ICD-9-CM 373.11) Inactive 373.11 Dec 18, 8 Jan 18, 2007 Entered By: PADMA LONG Comment: bilat lower lids, chronic/recurrent PADMA LONG [facility] Tobacco Use Disorder, Continuous Inactive 305.1 Dec 18, 2017 Jan 18, 2007 Entered By: PADMA LONG Comment: one ppd PADMA LONG [facility] Radiology Reports: +/- 30 days of the encounter No Data Provided for This Section Pathology Reports: +/- 30 days of the encounter No Data Provided for This Section Encounter Notes: All associated encounter notes This section contains the clinical notes associated to the Encounter. Date/Time Encounter Note(s) Provider Source Dec 05, 2018 12:04 PM CARE COORDINATION HOME [facility] FOLLOW-UP NOTE: LOCAL TITLE: HT INTERVENTION NOTE STANDARD TITLE: CARE COORDINATION HOME TELEHEALTH FOLLOW-UP NOTE DATE OF NOTE: DEC 05, 2018@12:04 ENTRY DATE: DEC 05, 2018@12:04:05 AUTHOR: KALA JONESIGNER: URGENCY: STATUS: COMPLETED HT INTERVENTION NOTE Has ADDENDA action needed: reentry/renewal of cc cardio consult. f/u w/ dr. arabella miller [place] is actively enrolled in the Home Telehealth program. Review of data shows the following out of range responses: f/u on trends; wnl Assessment: Intervention(s)/Plan: repors concerns w/ bp. informed bp has been wnl/goal. reports "just doesn't like see the fluctuations". reviewed some variation is expected given diet, fluid intake, medication/time taken, activity, sleep, stress. reviewed bp goal w : <140/80 >100/70 - [place] inquiring about cc cardio cons ult. needing renewed/re-entered so august f/u w/ non va pet food deboner - dr. arabella miller - encouraged daily weight entry HERBERTH BOB [phone]) Vital Sign Data for: 11/15/2018 - 12/05/2018 (All times are FRYER OPERATOR; All weights are lbs) Primary DMP: CAD Comorbid(s): Summary Weight Sys BP [place] BP Heart Rate Glucose SpO2 FEV1 PEF Temp High 215.5 131 85 102 144 Low 214.6 103 65 63 90 Average 215.1 118 78 77 115 Date Time Wt Time Sys [place] Time HR Time Glu Time SpO2 12/05/2018 08:39 117/ 08:39 72 08:37 144 12/04/2018 - 13:17 [...] 12/05/2018 14:00 Receipt Acknowledged By: 12/05/2018 15:26 /gisell/ SHANIQUA DOMINGUEZ RN 12/05/2018 14:29 /gisell/ PAMELA Cortes 12/05/2018 ADDENDUM STATUS: COMPLETED Patient needs [employer] Officer to submit ERMA. /gisell/ PAMELA RAMSEY Signed: 12/05/2018 14:29 Receipt Acknowledged By: 12/05/2018 15:21 /gisell/ KALA BOATENG RN [facility]
--- OUTSIDE RECORDS SUMMARY | 2019-12-02 07:38 | XMS REPORT | Encounter Summary ---
Author Author Department [facility] HERBERTH kline Organization Department of [facility] Address [address] [place] [address] Phone Unavailable Care Team Providers Care Gang Tailer Name Role Phone ADRIEL HERNANDEZ PCP Unavailable Insurance Providers: All historical and current No Data Provided for This Section Selected Encounter This section includes the information on record at [place] for the Encounter. Date/Time Encounter Type Encounter Description Reason Provider Source Dec 13, 2018 01:11 PM Outpatient Encounter COMMUNITY [facility]ARE CONSULT [facility] 15 IHE Encounter Template Text not used by [place] Assessments - Encounter Diagnoses No Data Provided for This Section Plan of Treatment: Future Appointments (+ 6 months) and Future Tests (+/- 45 day s) The Plan of Treatment section includes future care activities for the patient fr om all [place] treatment facilities. This section includes future appointments and fu ture orders which are active, pending or scheduled. Future Appointments This section includes appointments that were scheduled t o occur 6 months from the date of the Encounter, up to a maximum of 20 appointme nts. The data comes from all [place] treatment facilities. Appointment Date/Time Appointment Type Appointment Facili ty Name Dec 18, 2018 09:00 AM AMBULATORY - MEDICINE [facility] Dec 18, 2018 10:00 AM AMBULATORY - NONE [facility] Dec 18, 2018 10:01 AM AM[facility]ORY - NONE [facility] Jan 06, 2019 11:00 AM AMBULATORY - NONE [facility] Jan 31, 2019 09:00 AM AMBULATORY - MEDICINE [facility] Mar 10, 2019 12:30 PM AMBULATORY - SURGERY [facility] Mar 21, 2019 09:15 AM AMBULATORY - NONE [facility] Mar 21, 2019 09:30 AM AMBULATORY - MEDICINE [facility] Mar 21, 2019 09:31 AM AMBULATORY - MEDICINE [facility] Mar 21, 2019 10:00 AM AMBULATORY - MEDICINE [facility] Mar 21, 2019 10:01 AM AMBULATORY - MEDICINE [facility] Mar 26, 2019 10:00 AM AMBULATORY - NONE [facility] Apr 03, 2019 10:00 AM AMBULATORY - SURGERY [facility] Apr 14, 2019 10:00 AM AMBULATORY - SURGERY [facility] Apr 28, 2019 11:00 AM AMBULATORY [...] Range Comment Dec 18, 2018 08:45 AM [facility] CBC & DIFF Specimen Type: BLOOD [...] 0.4 % Dec 18, 2018 08:45 AM [facility] COMPREHENSIVE METABOLIC PA KELLE Specimen Type: PLASMA [...] EGFR >60 Dec 18, 2018 08:45 AM [facility] LIPID PROFILE(HDL,TRIG,CHO L,LDL) Specimen Type: PLASMA Comment: For eGFR: eGFR results >60 are imprecise. Many variables affect the calculated result. Interpretation of eGFR results >60 must be monitored over time. CHOLESTEROL 172 mg/dL 0-200 TRIGS 190 mg/dL H 0-150 HDL-CHOLESTEROL 40 mg/dL >40 LDL (CALC) 94 mg/dL 0-99.9 Dec 18, 2018 08:45 AM Reactivity [facility] PROSTATIC SPECIFIC ANTIGEN (TOTAL) Specimen Type: SERUM [...] Negative Negative Dec 18, 2018 08:45 AM [facility] MICROALBUMIN (ANANT,WI) RANDO M URINE Specimen Type: URINE Comment: Microalbumin is below the linearity of the instrument, unable to calculate the albumin/creatinine ratio. *MICROALBUMIN,RAND < 5 ug/mL *MICROALB/CREAT canc mcg/mg cr *PROT/GAMMA OPERATOR RATIO 0.1 *UR PROTEIN 8 mg/dL [...] the patient. The data comes from a [facility] treatment facilities. It does not [...] pharmacy in the last 15 m [facility], and 2) all medications recorded in the VA medical record as "non-VA medic ations". Pharmacy terms refer to VA pharmacy's work on prescriptions. VA patient s are advised to take their medications as instructed by their health care team. The data comes from all [place] treatment facilities. Glossary of Pharmacy Terms:Active = A prescription that can be filled at the local [place] pharmacy.Active: On Hold = An active prescription that will not be filled until pharmacy resolves the issue.Active: Susp = An active prescription that is not scheduled to be filled yet.Clinic Order = A medication received during a visit to a [place] clinic or emergency department (currently not available).Discontinued [...] other providers that was filled outside the [place]. Or, it may be an over the [...] TEST BLOOD GLUCOSE 50 Dec 19, 2019 [id number] September 04, 2019 PAMELA RAMSEY ACCU-CHEK CHARLES PLUS (GLUCOSE) TEST STRIP Discontinued USE 1 STRIP FOR TESTING TWO TIMES PER WEEK - DIRECTED TO TEST BLOOD GLUCOSE 50 Jul 25, 2019 [id number] Nov 12, 2018 PAMELA RAMSEY ALBUTEROL SO4 90MCG/ACTUAT (CFC-F) INHL,ORAL,6.7GM Active INHALE 2 PUFFS BY ORAL INHALATION EVERY 4 HOURS NEEDED FOR BREATHING. SHAKE WELL. RINSE MOUTHPIECE FREQUENTLY TO PREVENT CLOGGING. USE NEEDED FOR SHORTNESS OF AIR/WHEEZING FOR BREATHING. SHAKE WELL. RINSE MOUTHPIECE FREQUENTLY TO PREVENT CLOGGING. USE NEEDED FOR SHORTNESS OF AIR/WHEEZING 1 Dec 19, 2019 [id number] September 04, 2019 [facility] RAMSEY [facility] ALCOHOL PREP PAD Active USE 1 PAD ON SKIN BIW TO CLEAN AND DISINFECT THE SKIN 200 Sep 29, 2020 [id number] Sep 30, 2019 MAURICIO RANKIN [facility] ALCOHOL PREP PAD Discontinued USE 1 PAD ON SKIN BI W TO CLEAN AND DISINFECT THE SKIN 200 Dec 19, 2019 [id number] Jun 06, 2019 [facility] ALCOHOL PREP PAD Discontinued USE 1 PAD ON SKIN BI W TO CLEAN AND DISINFECT THE SKIN 200 Jul 25, 2019 [id number] Nov 12, 2018 [facility] ASCORBIC ACID 250MG TAB Non-VA TAKE ONE TABLET BY MOUTH ONCE A DAY Non-VA Documented by: SHANIQUA SCHMIDT nted at: [facility] ASPIRIN 25MG/DIPYRIDAMOLE 200MG CAP,SA Active T CHAPIN 1 CAPSULE BY MOUTH TWO TIMES A DAY - SWALLOW WHOLE. DO NOT CRUSH OR CHEW. FOR RECURRENT TIA/STROKE 180 Dec 19, 2019 [id number] Dec 20, 2018 [facility] ASPIRIN 25MG/DIPYRIDAMOLE 200MG CAP,SA Discontinued T CHAPIN 1 CAPSULE BY MOUTH TWO TIMES A DAY - SWALLOW WHOLE. DO NOT CRUSH OR CHEW. FOR RECURRENT TIA/STROKE 180 Feb 06, 2019 [id number] Sep 28, 2018 ZACHARY GRECO ASPIRIN 81MG TAB,EC Non- [place] TAKE ONE TABLET BY MOUTH ONCE A DAY Non-VA Documented by: PADMA LONG nted at: [facility] ATORVASTATIN CA 80MG TAB Active TAKE ONE TABLET BY MOUTH AT BEDTIME FOR CHOLESTEROL - REPORT ANY UNEXPLAINED MUSCLE PAIN/WEAKNESS TO YOUR PROVIDER 90 Dec 19, 2019 [id number] September 04, 2019 PAMELA RAMSEY ATORVASTATIN CA 80MG TAB Discontinued TAKE ONE TABLET BY MOUTH AT BEDTIME FOR CHOLESTEROL - REPORT ANY UNEXPLAINED MUSCLE PAIN/WEAKNESS TO YOUR PROVIDER 90 Dec 20, 2018 [id number] Nov 12, 2018 PAMELA RAMSEY BUDESONIDE 160MCG/FORMOTEROL FUM 4.5MCG/SPRAY INHL,ORAL,10.2 GM Active INHALE 2 PUFFS BY MOUTH TWO TIMES A DAY FOR BREATHING. SHAKE WELL. RINSE MOUTH AND SPIT AFTER EACH USE. 3 Apr 24, 2020 [id number] August 22, 2019 [facility] CALCIUM/VITAMIN D TAB No n-VA TAKE BY MOUTH ONCE A DAY Non-V A Documented by: PADMA LONG nted at: [facility] CARBOXYMETHYLCELLULOSE NA 0.5% SOLN,OPH Active INSTILL ONE DROP IN BOTH EYES FOUR TIMES A DAY FOR DRY EYES 15 Feb 01, 2020 [id number] September 03 0 NEDA SHAW [facility] DICLOFENAC NA 1% GEL,TOP Discontinued APPLY 2 GRAMS A FFECTED AREA TWO TIMES A DAY NEEDED FOR PAIN AND INFLAMMATION. DO NOT EXCEED 16GM DAILY TO ANY AFFECTED JOINT OF LOWER EXTREMITIES. DO NOT EXCEED 8GM DAILY TO ANY AFFECTED JOINT OF UPPER EXTREMITES. DO NOT EXCEED TOTAL DOSE OF 32GM DAILY FOR ALL JOINTS. 100 Oct 31, 2018 [id number] Oct 06, 2018 ANAYELI KIRKPATRICK [facility] DICLOFENAC NA 1% GEL,TOP APPLY 2 GRAMS A FFECTED AREA TWO TIMES A DAY NEEDED FOR PAIN AND INFLAMMATION. DO NOT EXCEED 16GM DAILY TO ANY AFFECTED JOINT OF LOWER EXTREMITIES. DO NOT EXCEED 8GM DAILY TO ANY AFFECTED JOINT OF UPPER EXTREMITES. DO NOT EXCEED TOTAL DOSE OF 32GM DAILY FOR ALL JOINTS. 100 Jan 17, 2019 [id number] Dec 20, 2018 PAMELA RAMSEY FLUTICASONE PROPIONATE 50MCG/SPRAY SOLN,NASAL,16GM Active INSTILL 1 SPRAY IN EACH NOSTRIL ONCE A DAY SHAKE GENTLY BEFORE USE! - MUST BE USED DIRECTED FOR 3 WEEKS TO PROVIDE BENEFIT. * NO EARLY REFILLS * 1UNIT = 30DAYS AT 4 PF/DAY OR 60DAYS AT 2PF/DAY 2 Dec 19, 2019 [id number] August 26, 2019 PAMELA RAMSEY KETOTIFEN 0.025% SOLN,OPH Active INSTILL 1 DROP IN BOTH EYES TWO TIMES A DAY FOR RELIEF OF ALLERGY SYMPTOMS IN EYE(S) 10 Feb 01, 2020 [id number] September 04, 2019 N[facility] SH[facility] LANCET,SOFTCLIX Active USE LANCET BIW FOR TESTING BL OOD GLUCOSE DIRECTED 100 Sep 29, 2020 [id number] Sep 30, 2019 CHUCHOPAMELLA FAUSTINLloyd [facility] LANCET,SOFTCLIX Discontinued USE LANCET BIW FO R TESTING BLOOD GLUCOSE DIRECTED 100 Dec 19, 2019 [id number] Jun 06, 2019 [facility] LANCET,SOFTCLIX Discontinued USE LANCET BIW FO R TESTING BLOOD GLUCOSE DIRECTED 100 Jul 25, 2019 [id number] Nov 12, 2018 PAMELA RAMSEY LISINOPRIL 40MG TAB Non- [place] TAKE ONE-HALF TABLET BY MOUTH EVERY MORNING Non-VA Documented by: PAMELA RAMSEY nted at: [facility] LORATADINE/PSEUDOEPHEDRINE TAB,SA Non-VA TAKE BY MOUTH No n-VA Documented by: JUAN LANG nted at: [facility] MAGNESIUM OXIDE 400MG TAB Non-VA TAKE [...] ACID (REPLACES ACIPHEX) 180 Dec 19, 2019 [id number] August 26, 2019 PAMELA RAMSEY POLYETHYLENE GLYCOL [...] Documented by: KATHERINE MATT Docume nted at: [facility] PREGABALIN 150MG CAP,ORAL Non-VA TAKE 1 CAPSULE BY MOUTH TWO TIMES A DAY Non-VA Docume nted by: PAMELA RAMSEY Docume nted at: [facility] SEMAGLUTIDE INJ,SOLN Non -VA INJECT SUBCUTANEOUSLY EVERY WEEK Non-VA Documented by: ANAYELI KIRKPATRICK Docume nted at: [facility] TERBINAFINE HCL 1% CREAM,TOP Active APPLY LIGHT LY TO AFFECTED AREA TWO TIMES A DAY FOR INFECTION Sep 23, 2020 [id number] Sep 24, 2019 ADRIEL HERNANDEZ UREA 20% CREAM,TOP Active APPLY LIGHTLY (20%) TO AFFECTED AREA TWO TIMES A DAY NEEDED TO PROMOTE HEALING,RUB IN UNTIL COMPLETELY ABSORBED*FOR TOPICAL USE ONLY* APPLY TO BOTH FEET DIRECTED. Sep 25, 2020 [id number] Sep 26, 2019 ADRIEL HERNANDEZ Problems (Conditions): All historical and current Section Date Range: From patient's date of to the date document was create d. This section includes a list of Problems (Conditions) know n to [place] for the [place]. It includes both active and inacti ve problems (conditions). The data comes from all [place] treatment facilities. Problem Status Problem Code Date of Onset Date of Resolution Comm ent(s) Provider Source Alcohol intake above recommended sensible limits Active 183091136 PADMA OLNG [facility] Allergic conjunctivitis Active 606161405 OXFORDNEDA [facility] Bilateral senile combined form cataracts of eyes Active [id number] 9108 COLINNEDA [facility] Bilateral tinnitus Active [id number] CHASTITY JEAN [facility] Coronary arteriosclerosis Active 98699756 September 08, 2014 Entered By: PADMA LONG Comment: hx of ptca to RCA several yrs. 2014 Entered By: PADMA LONG Comment: heart cath 5/12/15, neg. 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 pancreatic cancerMay 2014 Entered By: PADMA LONG Comment: per abdominal CT 09/01/14, via abida meneses ks FRAZIER, JAY J [facility] Dry eyes Active 385062601 NEDA SHAW [facility] Gastro-esophageal reflux disease without esophagitis ( SNOMED CT 247491407) Active 795551055 ALF GUEVARA [facility] History of malignant neoplasm of lung Active 417596508 CHAPO BARRETO [facility] Hyperlipidemia (SNOMED CT 09076063) Active 74915329 PAMELA RAMSEY [facility] Lung mass Active 009060361 September 08, 2014 E ntered By: PADMA LONG Comment: 4.5 cm mass, post. segment right upper lobe.September 08, 2014 Entered By: PADMA LONG Comment: mild adenopathy in mediastinum and bilat. hilaMay 2014 Entered By: PADMA LONG Comment: most likely related to lung cancerMa2014 Entered By: PADMA LONG Comment: per ct angio of chest with contrast 09/01/14,via abida menesesnjJun 2014 Entered By: PADMA LONG Comment: per path report- mod. differentiated bronchogenic adenoca. 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 Active 24142067 KATHERINE MATT [facility] Obesity Active 834570104 [facility] Obstructive sleep apnea syndrome (SNOMED CT 47633221) Active 816098 015 [place] ARTUR [facility] Pancreatic cyst Active 84826305 JAYLENE GUEVARA [facility] Papilloma of right eyelid Active [id number] [facility]AW [facility] Polyp of colon Active 44892324 Jan 23 Entered By: PADMA LONG Comment: c-scope 01/17/16, multiple benign colonic polypsJun 28, 2017 Entered By: PADMA LONG Comment: c-scope,06/25/17,[facility], three benign polyps- sigmoid colon, transverse colon,cecum. see path report cprs SHARRON TORRES [facility] Pulmonary emphysema Active 30946766 0 BRIANA GAVIN Juan M [facility] Sensorineural hearing loss, bilateral Active 367499823 CHASTITY JEAN [facility] Snoring Active 83427250 SONG BULLOCK [facility] Type 2 diabetes mellitus without complication Active 778471179 NEDA SHAW [facility] Environmental Allergies (ICD-9-CM 477.9) Inactive 477.9 Dec 18, 2017 PADMA LONG [facility] External hemorrhoids without mention of complication (ICD-9- CM 455.3) Inactive 455.3 Dec 18, 2017 PADMA LONG [facility] Impotence of organic origin (ICD-9-CM 607.84) Inactive 607.84 Dec 18, 2017 PADMA LONG [facility] Screening for Lipoid disorders (ICD-9-CM V77.91) Inactive V77.91 Jan 18, 2007 [facility] Stye * (ICD-9-CM 373.11) Inactive 373.11 Dec 18, 201 8 Jan 18, 2007 Entered By: PADMA LONG Comment: bilat lower lids, chronic/recurrent [facility] Tobacco Use [...] 14:23 /gisell/ SHANIQUA DOMINGUEZ RN 12/13/2018 13:58 /gisell/ RAZ QUIROZ [facility]
--- OUTSIDE RECORDS SUMMARY | 2019-12-02 07:38 | XMS REPORT ---
Author Author Department [facility] HERBERTH kline Organization [facility] Address [address] [place] [address] Phone Unavailable Care Team Providers Care Senior Support Engineer Name Role Phone ADRIEL HERNANDEZ PCP Unavailable Insurance Providers: All historical and current No Data Provided for This Section Selected Encounter This section includes the information on record at [place] for the Encounter. Date/Time Encounter Type Encounter Description Reason Provider Source Dec 17, 2018 09:18 AM Outpatient Encounter COMMUNITY CARE CONSULT [facility] 15 IHE Encounter Template Text not [...] 10, 2019 12:30 PM AMBULATORY - SURGERY [facility] Mar 21, 2019 09:15 AM AMBULATORY - NONE [facility] Mar 21, 2019 09:30 AM AMBULATORY - MEDICINE [facility] Mar 21, 2019 09:31 AM AMBULATORY - MEDICINE [facility] Mar 21, 2019 10:00 AM AMBULATORY - MEDICINE [facility] Mar 21, 2019 10:01 AM AMBULATORY - MEDICINE [facility] TERAN [facility] Mar 26, 2019 10:00 AM AMBULATORY - [...] 0.4 % Dec 18, 2018 08:45 AM [facility] COMPREHENSIVE METABOLIC PA KELLE Specimen Type: PLASMA [...] EGFR >60 Dec 18, 2018 08:45 AM [facility] LIPID PROFILE(HDL,TRIG,CHO L,LDL) Specimen Type: PLASMA Comment: For eGFR: eGFR results >60 are imprecise. Many variables affect the calculated result. Interpretation of eGFR results >60 must be monitored over time. CHOLESTEROL 172 mg/dL 0-200 TRIGS 190 mg/dL H 0-150 HDL-CHOLESTEROL 40 mg/dL >40 LDL (CALC) 94 mg/dL 0-99.9 Dec 18, 2018 08:45 AM WeissBeerger [facility] PROSTATIC SPECIFIC ANTIGEN (TOTAL) Specimen Type: SERUM [...] Negative Negative Dec 18, 2018 08:45 AM [facility] MICROALBUMIN (ANANT,WI) RANDO M URINE Specimen Type: URINE Comment: Microalbumin is below the linearity of the instrument, unable to calculate the albumin/creatinine ratio. *MICROALBUMIN,RAND < 5 ug/mL *MICROALB/CREAT canc mcg/mg cr *PROT/TONGER RATIO 0.1 *UR PROTEIN 8 mg/dL *UR [...] patient. The data comes from a [facility] treatment facilities. It does not list Allergies/ADRs that were removed or entered in error. Some allergies/ADRs may be reported in t he Immunization section. Allergen Event Date Event Type Reaction(s) Severity Source [place] September 08, 2014 Propensity to adverse reactions to drug (diso rder) [facility] 15 PLAVIX September 08, 2014 Propensity to adverse reactions to drug (diso rder) [facility] 15 Medications: [facility] dispensed [...] TEST BLOOD GLUCOSE 50 Dec 19, 2019 [id number] September 04, 2019 PAMELA RAMSEY ACCU-CHEK CHARLES PLUS (GLUCOSE) TEST STRIP Discontinued USE 1 STRIP FOR TESTING TWO TIMES PER WEEK - DIRECTED TO TEST BLOOD GLUCOSE 50 Jul 25, 2019 [id number] Nov 12, 2018 PAMELA RAMSEY ALBUTEROL SO4 90MCG/ACTUAT (CFC-F) INHL,ORAL,6.7GM Active INHALE 2 PUFFS BY ORAL INHALATION EVERY 4 HOURS NEEDED FOR BREATHING. SHAKE WELL. RINSE MOUTHPIECE FREQUENTLY TO PREVENT CLOGGING. USE NEEDED FOR SHORTNESS OF AIR/WHEEZING FOR BREATHING. SHAKE WELL. RINSE MOUTHPIECE FREQUENTLY TO PREVENT CLOGGING. USE NEEDED FOR SHORTNESS OF AIR/WHEEZING 1 Dec 19, 2019 [id number] September 04, 2019 PAMELA RAMSEY [facility] ALCOHOL PREP PAD Active USE 1 PAD ON SKIN BIW TO CLEAN AND DISINFECT THE SKIN 200 Sep 29, 2020 [id number] Sep 30, 2019 MAURICIO RANKIN [facility] ALCOHOL PREP PAD Discontinued USE 1 PAD ON SKIN BI W TO CLEAN AND DISINFECT THE SKIN 200 Dec 19, 2019 [id number] Jun 06, 2019 PAMELA RAMSEY [facility] ALCOHOL PREP PAD Discontinued USE 1 PAD ON SKIN BI W TO CLEAN AND DISINFECT THE SKIN 200 Jul 25, 2019 [id number] Nov 12, 2018 PAMELA RAMSEY [facility] ASCORBIC ACID 250MG TAB Non-VA TAKE ONE TABLET BY MOUTH ONCE A DAY Non-VA Documented by: SHANIQUA SCHMIDT nted at: [facility] ASPIRIN 25MG/DIPYRIDAMOLE 200MG CAP,SA Active T CHAPIN 1 CAPSULE BY MOUTH TWO TIMES A DAY - SWALLOW WHOLE. DO NOT CRUSH OR CHEW. FOR RECURRENT TIA/STROKE 180 Dec 19, 2019 [id number] Dec 20, 2018 PAMELA RAMSEY [facility] ASPIRIN 25MG/DIPYRIDAMOLE 200MG CAP,SA Discontinued T CHAPIN 1 CAPSULE BY MOUTH TWO TIMES A DAY - SWALLOW WHOLE. DO NOT CRUSH OR CHEW. FOR RECURRENT TIA/STROKE 180 Feb 06, 2019 [id number] Sep 28, 2018 ZACHARY GRECO ASPIRIN 81MG TAB,EC Non- VA TAKE ONE TABLET BY MOUTH ONCE A DAY Non-VA Documented by: PADMA LONG nted at: [facility] ATORVASTATIN CA 80MG TAB Active TAKE ONE TABLET BY MOUTH AT BEDTIME FOR CHOLESTEROL - REPORT ANY UNEXPLAINED MUSCLE PAIN/WEAKNESS TO YOUR PROVIDER 90 Dec 19, 2019 [id number] September 04, 2019 PAMELA RAMSEY ATORVASTATIN CA 80MG TAB Discontinued TAKE ONE TABLET BY MOUTH AT BEDTIME FOR CHOLESTEROL - REPORT ANY UNEXPLAINED MUSCLE PAIN/WEAKNESS TO YOUR PROVIDER 90 Dec 20, 2018 [id number] Nov 12, 2018 PAMELA RAMSEY BUDESONIDE 160MCG/FORMOTEROL FUM 4.5MCG/SPRAY INHL,ORAL,10.2 GM Active INHALE 2 PUFFS BY MOUTH TWO TIMES A DAY FOR BREATHING. SHAKE WELL. RINSE MOUTH AND SPIT AFTER EACH USE. 3 Apr 24, 2020 [id number] August 22, 2019 [facility] CALCIUM/VITAMIN D TAB No n-VA TAKE BY MOUTH ONCE A DAY Non-V A Documented by: PADMA LONG nted at: [facility] CARBOXYMETHYLCELLULOSE NA 0.5% SOLN,OPH Active INSTILL ONE DROP IN BOTH EYES FOUR TIMES A DAY FOR DRY EYES 15 Feb 01, 2020 [id number] September 03 0 N[facility] SHAW [facility] [...] FOR ALL JOINTS. 100 Oct 31, 2018 [id number] Oct 06, 2018 ANAYELI KIRKPATRICK [facility] DICLOFENAC NA 1% GEL,TOP APPLY 2 GRAMS A FFECTED AREA TWO TIMES A DAY NEEDED FOR PAIN AND INFLAMMATION. DO NOT EXCEED 16GM DAILY TO ANY AFFECTED JOINT OF LOWER EXTREMITIES. DO NOT EXCEED 8GM DAILY TO ANY AFFECTED JOINT OF UPPER EXTREMITES. DO NOT EXCEED TOTAL DOSE OF 32GM DAILY FOR ALL JOINTS. 100 Jan 17, 2019 [id number] Dec 20, 2018 PAMELA RAMSEY FLUTICASONE PROPIONATE 50MCG/SPRAY SOLN,NASAL,16GM Active INSTILL 1 SPRAY IN EACH NOSTRIL ONCE A DAY SHAKE GENTLY BEFORE USE! - MUST BE USED DIRECTED FOR 3 WEEKS TO PROVIDE BENEFIT. * NO EARLY REFILLS * 1UNIT = 30DAYS AT 4 PF/DAY OR 60DAYS AT 2PF/DAY 2 Dec 19, 2019 [id number] August 26, 2019 PAMELA RAMSEY KETOTIFEN 0.025% SOLN,OPH Active INSTILL 1 DROP IN BOTH EYES TWO TIMES A DAY FOR RELIEF OF ALLERGY SYMPTOMS IN EYE(S) 10 Feb 01, 2020 [id number] September 04, 2019 NED[facility] SHAW [facility] LANCET,SOFTCLIX Active USE LANCET BIW FOR TESTING BL OOD GLUCOSE DIRECTED 100 Sep 29, 2020 [id number] Sep 30, 2019 CHUCHOPAMELLA FAUSTINLloyd [facility] LANCET,SOFTCLIX Discontinued USE LANCET BIW FO R TESTING BLOOD GLUCOSE DIRECTED 100 Dec 19, 2019 [id number] Jun 06, 2019 [facility]ELA RAMSEY [facility] LANCET,SOFTCLIX Discontinued USE LANCET BIW FO R TESTING BLOOD GLUCOSE DIRECTED 100 Jul 25, 2019 [id number] Nov 12, 2018 PAMELA RAMSEY LISINOPRIL 40MG TAB Non- VA TAKE ONE-HALF TABLET BY MOUTH EVERY MORNING Non-VA Documented by: PAMELA RAMSEY nted at: [facility] LORATADINE/PSEUDOEPHEDRINE TAB,SA Non-VA TAKE BY MOUTH No n-VA Documented by: JUAN LANG nted at: ARTUR TERAN [facility] MAGNESIUM OXIDE 400MG [...] ACID (REPLACES ACIPHEX) 180 Dec 19, 2019 [id number] August 26, 2019 PAMELA RAMSEY POLYETHYLENE GLYCOL [...] by: KATHERINE MATT Docume nted at: [facility] PREGABALIN 150MG CAP,ORAL Non-VA TAKE 1 CAPSULE BY MOUTH TWO TIMES A DAY Non-VA Docume nted by: PAMELA RAMSEY Docume nted at: [facility] SEMAGLUTIDE INJ,SOLN Non -VA INJECT SUBCUTANEOUSLY EVERY WEEK Non-VA Documented by: ANAYELI KIRKPATRICK Docume nted at: [facility] TERBINAFINE HCL 1% CREAM,TOP Active APPLY LIGHT LY TO AFFECTED AREA TWO TIMES A DAY FOR INFECTION Sep 23, 2020 [id number] Sep 24, 2019 ADRIEL HERNANDEZ UREA 20% CREAM,TOP Active APPLY LIGHTLY (20%) TO AFFECTED AREA TWO TIMES A DAY NEEDED TO PROMOTE HEALING,RUB IN UNTIL COMPLETELY ABSORBED*FOR TOPICAL USE ONLY* APPLY TO BOTH FEET DIRECTED. Sep 25, 2020 [id number] Sep 26, 2019 ADRIEL HERNANDEZ Problems (Conditions): [...] Alcohol intake above recommended sensible limits Active 764791917 PADMA LONG [facility] Allergic conjunctivitis Active 465978253 CHECOTAHNEDA [facility] Bilateral senile combined form cataracts of eyes Active 67647757611 9108 COLINNEDA [facility] Bilateral tinnitus Active 9906462895420 CHASTITY JEAN [facility] Coronary arteriosclerosis Active 42395472 September 08, 2014 Entered By: PADMA LONG Comment: hx of ptca to RCA several yrs. 2014 Entered By: PADMA LONG Comment: heart cath 5/12/15, neg. / previous stent to RCA,, via abida meneses ks HATCHER, JENNEY R [facility] Diabetes mellitus Active 48542119 BRAULIOPAMELA TOMAS [facility] Disorder of pancreas Active 1151435 September 08, 2014 Entered By: PADMA LONG Comment: 2.5cm low density lseion in bodyMay 2014 Entered By: PADMA LONG Comment: question of communication with pancreatic ductMay 2014 Entered By: PADMA LONG Comment: favored to be cystic pancreatic cancerMay 2014 Entered By: PADMA LONG Comment: per abdominal CT 09/01/14, via abida meneses ks FRAZIER, JAY J [facility] Dry eyes Active 383522223 NEDA SHAW [facility] Gastro-esophageal reflux disease without esophagitis ( SNOMED CT 877703319) Active 708733159 ALF GUEVARA [facility] History of malignant neoplasm of lung Active 809488454 CHAPO BARRETO [facility] Hyperlipidemia (SNOMED CT 18021942) Active 30355186 PAMELA RAMSEY [facility] Lung mass Active 439283674 September 08, 2014 E ntered By: PADMA [...] uncertain behavior of skin of eyelid Active 93117134 KATHERINE MATT [facility] Obesity Active 683931732 SNOG [facility] Obstructive sleep apnea syndrome (SNOMED CT 17767050) Active 458694 015 [place] ARTUR [facility] Pancreatic cyst Active 95825529 JAYLENE GUEVARA [facility] Papilloma of right eyelid Active 246368174936617 NEDA SHAW [facility] Polyp of colon Active 02627550 Jan 23 Entered By: PADMA LONG Comment: c-scope 01/17/16, multiple benign colonic polypsJun 28, 2017 Entered By: PADMA LONG Comment: c-scope,06/25/17,[facility], three benign polyps- sigmoid colon, transverse colon,cecum. see path report cprs SHARRON TORRES [facility] Pulmonary emphysema Active 37455889 0 BRIANA GAVIN Juan M [facility] Sensorineural hearing loss, bilateral Active 146269116 CHASTITY JEAN [facility] Snoring Active 42849678 SONG BULLOCK [facility] Type 2 diabetes mellitus without complication Active 700051377 NEDA SHAW [facility] Environmental Allergies (ICD-9-CM 477.9) Inactive 477.9 Dec 18, 2017 PADMA LONG [facility] External hemorrhoids without mention of complication (ICD-9- CM 455.3) Inactive 455.3 Dec 18, 2017 PADMA LONG [facility] Impotence of organic origin (ICD-9-CM 607.84) Inactive 607.84 Dec 18, 2017 PADMA LONG [facility] Screening for Lipoid disorders (ICD-9-CM V77.91) Inactive V77.91 Jan 18, 2007 [facility] Stye * (ICD-9-CM 373.11) Inactive 373.11 Dec 18, 201 8 Jan 18, 2007 Entered By: PADMA LONG Comment: bilat lower lids, chronic/recurrent [facility] Tobacco Use Disorder, [...] Centered Community Care (PC3) Program Department of [facility] Choice Approval for Medical Care VA-Form [id number] Certain protected health information (PHI) may be enclosed; specifically information related to Drug Abuse, Alcoholism or Alcohol Abuse, Sickle Cell Anemia, and Human Immunodeficiency Virus (HIV). This specific PHI may NOT be re-disclosed or used by the recipient person or office for any purpose other than that for which the disclosure was made. [Ref. 38 [facility] 7332(b)(2)(H)(ii)] The information is b eing disclosed by MA only for the treatment and care of the named patient in the health record. Accounting of disclosure must be maintained when required. Referral Urgency: Routine Indicate time frame for appointment: Clinically Indicated Date (GUNNER): Dec Category of Care/Type of Specialty: CARDIOLOGY Type of Specialist: CUTTING AND CREASING PRESS OPERATOR Type of Service/Procedure: [facility] Office of Community Care - Standardized [...] can be made on behalf of the [place] 10. Follow-up visits for this episode of care 11. Cardiac rehabilitation, up to 36 visits, no more than 3x per week *Please visit the [facility] Storefront www.va.gov/COMMUNITYCARE/providers/index.asp for additional resources and requirements pertaining to the following Pharmacy prescribing requirements Durable Medical Equipment (DME), Prosthetics, and Orthotics prescribing requirements Precertification (PRCT) process requirements Request for Services (RFS) requirements Number of Visits, Frequency, and Duration: Duration: 180 days [place] or [facility] Preferred Provider Name and Contact Information: Eligibility Verification: As the authorized [place] telephone sales representative, I hereby confirm that the is eligible for Community Care services. The 's basic eligibility was verified on Nov. Contact the Facility Community Care Office first to provide information to the VA or to reach a VA ordering provider. All contact from the contractor will be documented in the [place]'s record by the [facility] community Care and the VA provider will be notified for awareness. Report all Critical Findings related to this authorization to the issuing office below. All other questions regarding this authorization should be directed to: [phone] [id number] Facility: [facility] Office of Community Care (OCC) Contact: [facility] Office of Community Care (OCC) Payroll Benefits Clerk or Equivalent: Name: Yaw Weldon Title: Nurse Payroll Benefits Clerk [facility] Contact Number (Normal Business Hours): [phone] AOD/Emergency Contact After Hours Number: [phone] From Station Number: [id number] Facility Name: Artur Teran [facility] [address] Address: [address] City: [place]: [place] Zip: [address] Information: Name: HERBERTH BOB JR : Jan SSN: [id number] Address: [address] [place] [address] In accordance with 38 CFR 17.1828-9379, MA will pay for non-VA hospital care and medical services that are authorized by MA for Veterans who are determined by MA to meet the Veterans Choice Program eligibility criteria set forth by section 101 of the Act and 38 CFR 17.1510 and any other eligibility standards that may apply to particular services (such as health care for newborns of Veterans under 38 CFR 17.38(a)(xiv) and dental benefits under 17.160-17.169). /gisell/ [facility] P[facility]NAM [facility] Signed: 12/17/2018 09:20 ARTIE PUTNAM [facility]
--- OUTSIDE RECORDS SUMMARY | 2019-12-02 07:38 | XMS REPORT | Encounter Summary ---
Author Author [facility] Address [address] [place] [address] Phone Unavailable Care Team Providers Care Insole Stiffener Name Role Phone ADRIEL HERNANDEZ PCP Unavailable Insurance Providers: All historical and current No Data Provided for This Section Selected Encounter This section includes the information on record at [place] for the Encounter. Date/Time Encounter Type Encounter Description Reason Provider Source Dec 05, 2018 02:00 PM Outpatient Encounter HT NON-VIDEO MONITORI NG ICD-10-CM I25.10 [place] heart disease of [place] coronary artery w/o jaden muñoz with Provider Comments: Atherosclerotic Heart Disease of [place] Coronary Artery without Angina Pectoris KALA JONES [facility] IHE Encounter Template Text not used by [place] Assessments - Encounter Diagnoses This section includes the primary and secondary diag noses documented for the Encounter. Date/Time Primary/Secondary Diagnosis Diagnosis Name Provider Source Dec 05, 2018 02:01 PM PRIMARY Aths[place] heart disea se of [place] coronary artery w/o jaden pctKALA Hammond [facility] Plan of Treatment: Future Appointments (+ [...] appointme nts. The data comes from all [facility]. Appointment Date/Time Appointment Type Appointment Facili ty Name Dec 18, 2018 09:00 AM AMBULATORY - MEDICINE [facility] Dec 18, 2018 10:00 AM [facility] Dec 18, 2018 10:01 AM AMBULATORY - NONE [facility] Jan 06, 2019 11:00 AM [facility] Jan 31, 2019 09:00 AM AM[facility]ULAT[facility] - MEDICINE [facility] Mar 10, 2019 12:30 PM AMBULATORY - SURGERY [facility] Mar 21, 2019 09:15 AM AMBULATORY - NONE [facility] Mar 21, 2019 09:30 AM AMBULATORY - MEDICINE [facility] Mar 21, 2019 09:31 AM AMBULATORY - MEDICINE [facility] LaresJuan M SIMSMila [facility] Mar 21, 2019 10:00 AM AMBULATORY - MEDICINE [facility] Mar 21, 2019 10:01 AM AMBULATORY - MEDICINE [facility] Mar 26, 2019 10:00 AM [facility] NONE [facility] Apr 03, 2019 10:00 AM AMBULATORY - SURGERY ARTUR BLAS [facility] Apr 14, 2019 10:00 AM AMBULATORY - SURGERY [facility] Apr 28, 2019 11:00 AM [...] Range Comment Dec 18, 2018 08:45 AM [facility] CBC & DIFF Specimen Type: [...] % Dec 18, 2018 08:45 AM [facility] COMPREHENSIVE METABOLIC PA KELLE Specimen Type: [...] >60 Dec 18, 2018 08:45 AM [facility] LIPID PROFILE(HDL,TRIG,CHO L,LDL) Specimen Type: PLASMA [...] < 5 ug/mL *MICROALB/CREAT canc mcg/mg cr *PROT/SHOW HOST/HOSTESS RATIO 0.1 *UR PROTEIN 8 mg/dL *UR [...] YRS OR MORE PORSHA BLAS [facility] Tobacco Use History This section includes a history of the smoking, or tobacco -related health factors, that were collected on or before the date of the Encoun ter. The data comes from the [place] facility where the Encounter took place. Date/Time Smoking Status/Tobacco Use Comment [facility] Jun 26, 2018 02:13 PM VA-TOBACCO QUIT 15 YRS OR MORE PORSHA BLAS [facility] Jun 27, 2017 01:39 PM NON-TOBACCO [...] to adverse reactions to drug (diso rder) [facility] [place] September 08, 2014 Propensity to adverse reactions to drug (diso rder) [facility] Medications: VA dispensed (-15 months) and Non-VA Documented (Obtained Outside A) Section Date Range: 1) prescriptions processed by a VA pharmacy in the last 15 m [facility], and 2) all medications recorded in the [...] TEST BLOOD GLUCOSE 50 Dec 19, 2019 [id number] September 04, 2019 PAMELA RAMSEY ACCU-CHEK CHARLES PLUS (GLUCOSE) TEST STRIP Discontinued USE 1 STRIP FOR TESTING TWO TIMES PER WEEK - DIRECTED TO TEST BLOOD GLUCOSE 50 Jul 25, 2019 [id number] Nov 12, 2018 PAMELA RAMSEY ALBUTEROL SO4 90MCG/ACTUAT (CFC-F) INHL,ORAL,6.7GM Active INHALE 2 PUFFS BY ORAL INHALATION EVERY 4 HOURS NEEDED FOR BREATHING. SHAKE WELL. RINSE MOUTHPIECE FREQUENTLY TO PREVENT CLOGGING. USE NEEDED FOR SHORTNESS OF AIR/WHEEZING FOR BREATHING. SHAKE WELL. RINSE MOUTHPIECE FREQUENTLY TO PREVENT CLOGGING. USE NEEDED FOR SHORTNESS OF AIR/WHEEZING 1 Dec 19, 2019 [id number] September 04, 2019 BRAULIO,PAMELA [facility] ALCOHOL PREP PAD Active USE 1 PAD ON SKIN BIW TO CLEAN AND DISINFECT THE SKIN 200 Sep 29, 2020 [id number] Sep 30, 2019 MAURICIO RANKIN [facility] ALCOHOL PREP PAD Discontinued USE 1 PAD ON SKIN BI W TO CLEAN AND DISINFECT THE SKIN 200 Dec 19, 2019 [id number] Jun 06, 2019 PAMELA RAMSEY [facility] ALCOHOL PREP PAD Discontinued USE 1 PAD ON SKIN BI W TO CLEAN AND DISINFECT THE SKIN 200 Jul 25, 2019 [id number] Nov 12, 2018 PAMELA RAMSEY ASCORBIC ACID 250MG TAB Non-VA TAKE ONE TABLET BY MOUTH ONCE A DAY Non-VA Documented by: SHANIQUA SCHMIDT nted at: [facility] ASPIRIN 25MG/DIPYRIDAMOLE 200MG CAP,SA Active T CHAPIN 1 CAPSULE BY MOUTH TWO TIMES A DAY - SWALLOW WHOLE. DO NOT CRUSH OR CHEW. FOR RECURRENT TIA/STROKE 180 Dec 19, 2019 [id number] Dec 20, 2018 PAMELA RAMSEY [facility] ASPIRIN 25MG/DIPYRIDAMOLE 200MG CAP,SA Discontinued T CHAPIN 1 CAPSULE BY MOUTH TWO TIMES A DAY - SWALLOW WHOLE. DO NOT CRUSH OR CHEW. FOR RECURRENT TIA/STROKE 180 Feb 06, 2019 [id number] Sep 28, 2018 ZACHARY GRECO [facility] ASPIRIN 81MG TAB,EC Non- VA TAKE ONE TABLET BY MOUTH ONCE A DAY Non-VA Documented by: PADMA LONG nted at: [facility] ATORVASTATIN CA 80MG TAB Active TAKE ONE TABLET BY MOUTH AT BEDTIME FOR CHOLESTEROL - REPORT ANY UNEXPLAINED MUSCLE PAIN/WEAKNESS TO YOUR PROVIDER 90 Dec 19, 2019 [id number] September 04, 2019 PAMELA RAMSEY ATORVASTATIN CA 80MG TAB Discontinued TAKE ONE TABLET BY MOUTH AT BEDTIME FOR CHOLESTEROL - REPORT ANY UNEXPLAINED MUSCLE PAIN/WEAKNESS TO YOUR PROVIDER 90 Dec 20, 2018 [id number] Nov 12, 2018 PAMELA RAMSEY BUDESONIDE 160MCG/FORMOTEROL FUM 4.5MCG/SPRAY INHL,ORAL,10.2 GM Active INHALE 2 PUFFS BY MOUTH TWO TIMES A DAY FOR BREATHING. SHAKE WELL. RINSE MOUTH AND SPIT AFTER EACH USE. 3 Apr 24, 2020 [id number] August 22, 2019 LISSA OATES [facility] CALCIUM/VITAMIN D TAB No n-VA TAKE BY MOUTH ONCE A DAY Non-V A Documented by: PADMA LONG nted at: [facility] CARBOXYMETHYLCELLULOSE NA 0.5% SOLN,OPH Active INSTILL ONE DROP IN BOTH EYES FOUR TIMES A DAY FOR DRY EYES 15 Feb 01, 2020 [id number] September 03 0 [facility] DICLOFENAC NA 1% GEL,TOP Discontinued APPLY 2 GRAMS A FFECTED AREA TWO TIMES A DAY NEEDED FOR PAIN AND INFLAMMATION. DO NOT EXCEED 16GM DAILY TO ANY AFFECTED JOINT OF LOWER EXTREMITIES. DO NOT EXCEED 8GM DAILY TO ANY AFFECTED JOINT OF UPPER EXTREMITES. DO NOT EXCEED TOTAL DOSE OF 32GM DAILY FOR ALL JOINTS. 100 Oct 31, 2018 [id number] Oct 06, 2018 ANAYELI KIRKPATRICK [facility] DICLOFENAC NA 1% GEL,TOP APPLY 2 GRAMS A FFECTED AREA TWO TIMES A DAY NEEDED FOR PAIN AND INFLAMMATION. DO NOT EXCEED 16GM DAILY TO ANY AFFECTED JOINT OF LOWER EXTREMITIES. DO NOT EXCEED 8GM DAILY TO ANY AFFECTED JOINT OF UPPER EXTREMITES. DO NOT EXCEED TOTAL DOSE OF 32GM DAILY FOR ALL JOINTS. 100 Jan 17, 2019 [id number] Dec 20, 2018 [facility]ELA RAMSEY [facility] FLUTICASONE PROPIONATE 50MCG/SPRAY SOLN,NASAL,16GM Active INSTILL 1 SPRAY IN EACH NOSTRIL ONCE A DAY SHAKE GENTLY BEFORE USE! - MUST BE USED DIRECTED FOR 3 WEEKS TO PROVIDE BENEFIT. * NO EARLY REFILLS * 1UNIT = 30DAYS AT 4 PF/DAY OR 60DAYS AT 2PF/DAY 2 Dec 19, 2019 [id number] August 26, 2019 [facility]AMELA RAMSEY [facility] KETOTIFEN 0.025% SOLN,OPH Active INSTILL 1 DROP IN BOTH EYES TWO TIMES A DAY FOR RELIEF OF ALLERGY SYMPTOMS IN EYE(S) 10 Feb 01, 2020 [id number] September 04, 2019 [facility] LANCET,SOFTCLIX Active USE LANCET BIW FOR TESTING BL OOD GLUCOSE DIRECTED 100 Sep 29, 2020 [id number] Sep 30, 2019 MAURICIO RANKIN [facility] LANCET,SOFTCLIX Discontinued USE LANCET BIW FO R TESTING BLOOD GLUCOSE DIRECTED 100 Dec 19, 2019 [id number] Jun 06, 2019 PAMELA RAMSEY LANCET,SOFTCLIX Discontinued USE LANCET BIW FO R TESTING BLOOD GLUCOSE DIRECTED 100 Jul 25, 2019 [id number] Nov 12, 2018 PAMELA RAMSEY LISINOPRIL 40MG TAB Non- VA TAKE ONE-HALF TABLET BY MOUTH EVERY MORNING Non-VA Documented by: PAMELA RAMSEY nted at: [facility] LORATADINE/PSEUDOEPHEDRINE TAB,SA Non-VA TAKE BY MOUTH No n-VA Documented by: JUAN LANG nted at: ARTUR BLAS [facility] MAGNESIUM OXIDE 400MG TAB Non-VA TAKE [...] ACID (REPLACES ACIPHEX) 180 Dec 19, 2019 [id number] August 26, 2019 PAMELA RAMSEY POLYETHYLENE GLYCOL [...] Non-VA Documented by: KATHERINE MATT nted at: [facility] PREGABALIN 150MG CAP,ORAL Non-VA TAKE 1 CAPSULE BY MOUTH TWO TIMES A DAY Non-VA Docume nted by: PAMELA RAMSEY nted at: [facility] SEMAGLUTIDE INJ,SOLN Non -VA INJECT SUBCUTANEOUSLY EVERY WEEK Non-VA Documented by: ANAYELI KIRKPATRICK nted at: [facility] [place] [facility] TERBINAFINE HCL 1% CREAM,TOP Active APPLY LIGHT LY TO AFFECTED AREA TWO TIMES A DAY FOR INFECTION 90 Sep 23, 2020 [id number] Sep 24, 2019 ADRIEL HERNANDEZ UREA 20% CREAM,TOP Active APPLY LIGHTLY (20%) TO AFFECTED AREA TWO TIMES A DAY NEEDED TO PROMOTE HEALING,RUB IN UNTIL COMPLETELY ABSORBED*FOR TOPICAL USE ONLY* APPLY TO BOTH FEET DIRECTED. 90 Sep 25, 2020 [id number] Sep 26, 2019 ADRIEL HERNANDEZ Problems (Conditions): [...] Alcohol intake above recommended sensible limits Active [id number] PADMA LONG [facility] Allergic conjunctivitis Active 257972153 [facility] Luda [facility] Bilateral senile combined form cataracts of eyes Active [id number] [facility]uda [facility] Bilateral tinnitus Active [id number] CHASTITY JEAN [facility] Coronary arteriosclerosis Active [id number] September 08, 2014 Entered By: PADMA LONG Comment: hx of ptca to RCA several yrs. 2014 Entered By: PADMA LONG Comment: heart cath 09/01/14, neg. 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 2014 Entered By: PADMA LONG Comment: per abdominal CT 09/01/14, [place] PADMA LONG [facility] Dry eyes Active [id number] [facility] Gastro-esophageal reflux disease without esophagitis ( SNOMED CT 122065430) Active 316561378 ALF GUEVARA [facility] History of malignant neoplasm of lung Active 427584527 CHAPO BARRETO [facility] Hyperlipidemia (SNOMED CT 44883285) Active 90920671 PAMELA RAMSEY [facility] Lung mass Active 858108567 September 08, 2014 E ntered By: PADMA LONG Comment: 4.5 cm mass, post. segment right upper lobe.September 08, 2014 Entered By: PADMA LONG Comment: mild adenopathy in mediastinum and bilat. hilaMay 2014 Entered By: PADMA LONG Comment: most likely related to lung cancerMay 2014 Entered By: PADMA LONG Comment: per ct angio of chest with contrast 09/01/14,[place] Entered By: PADMA LONG Comment: per path report- mod. differentiated bronchogenic adenoca. 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 Active 98618813 KATHERINE MATT [facility] Obesity Active 351200077 [facility] Obstructive sleep apnea syndrome (SNOMED CT 11375691) Active 652427 015 [place] [facility] Pancreatic cyst Active 92679781 JAYLENE GUEVARA [facility] Papilloma of right eyelid Active [id number] NEDA SHAW [facility] Polyp of colon Active [id number] Jan 23 16 Entered By: PADMA LONG Comment: c-scope 01/17/16, multiple benign colonic polypsMar 2017 Entered By: PADMA LONG Comment: c-scope,06/25/17,[facility], three benign polyps- sigmoid colon, transverse colon,cecum. see path report cprs SHARRON TORRES [facility] Pulmonary emphysema Active 46883788 0 BRIANA LESLYE [facility] Sensorineural hearing loss, bilateral Active 490767329 CHASTITY JEAN [facility] Snoring Active 82115765 [place] [facility] Type 2 diabetes mellitus without complication Active 469548527 NEDA SHAW [facility] [...] Comment: one ppd PADMA LONG [facility] Radiology Reports: +/- 30 days of the encounter No Data Provided for This Section Pathology Reports: +/- 30 days of the encounter No Data Provided for This Section Encounter Notes: All associated encounter notes This section contains the clinical notes associated to the Encounter. Date/Time Encounter Note(s) Provider Source Dec 05, 2018 02:00 PM CARE COORDINATION [facility] SUMMARIZATION NOTE: LOCAL TITLE: HT MONTHLY MONITOR NOTE STANDARD TITLE: CARE COORDINATION HOME TELEHEALTH SUMMARIZATION DATE OF NOTE: DEC 05, 2018@14:00 ENTRY DATE: DEC 05, 2018@14:00:48 AUTHOR: KALA JONES EXP COSIGNER: URGENCY: STATUS: COMPLETED The [place] is enrolled in the Home Telehealth (HT) program and continues to be monitored via HT technology. The data sent by the is reviewed and analyzed by the HT staff, who provide ongoing case management and health education while communicating and collaborating with the health care team as appropriate. This note covers a total of 30 minutes for the month monitored. Month monitored: /gisell/ KALA JONES RN, BSN Signed: 12/05/2018 14:01 KALA JONES [facility]
--- OUTSIDE RECORDS SUMMARY | 2019-12-02 07:39 | XMS REPORT | Encounter Summary ---
Author Author Department of [facility] HERBERTH kline Organization Department of [facility] Address [address] [place] [address] Phone Unavailable Care Team Providers Care Director Agricultural Services Name Role Phone ADRIEL HERNANDEZ PCP Unavailable Insurance Providers: All historical and current No Data Provided for This Section Selected Encounter This section includes the information on record at [place] for the Encounter. Date/Time Encounter Type Encounter Description Reason Provider Source Dec 05, 2018 12:00 AM Outpatient Encounter EVENT (HISTORICAL) [facility] IHE Encounter Template Text not used [...] 2018 10:01 AM AMBULATORY - NONE [facility] Jan 06, 2019 11:00 AM AMBULATORY - NONE ART[facility] Jan 31, 2019 09:00 AM AMBULATORY - MEDICINE [facility] Mar 10, 2019 12:30 PM AMBULATORY - SURGERY [facility] Mar 21, 2019 09:15 AM AMBULATORY - NONE [facility] Mar 21, 2019 09:30 AM AMBULATORY - MEDICINE [facility] Mar 21, 2019 09:31 AM AMBULATORY - MEDICINE ARTUR BLAS [facility] Mar 21, 2019 10:00 AM AMBULATORY - MEDICINE [facility] Mar 21, 2019 10:01 AM AMBULATORY - MEDICINE ARTUR BLAS [facility] Mar 26, 2019 10:00 AM AMBULATORY - NONE [facility] Apr 03, 2019 10:00 AM AMBULATORY - SURGERY ARTUR CARRASQUILLO Apr 14, 2019 10:00 AM AMBULATORY - SURGERY [facility] Apr 28, 2019 11:00 AM [...] Range Comment Dec 18, 2018 08:45 AM [facility] CBC & DIFF Specimen Type: [...] 0.4 % Dec 18, 2018 08:45 AM [employer] COMPREHENSIVE METABOLIC PA KELLE Specimen Type: PLASMA [...] EGFR >60 Dec 18, 2018 08:45 AM [employer] LIPID PROFILE(HDL,TRIG,CHO L,LDL) Specimen Type: PLASMA Comment: For eGFR: eGFR results >60 are imprecise. Many variables affect the calculated result. Interpretation of eGFR results >60 must be monitored over time. CHOLESTEROL 172 mg/dL 0-200 TRIGS 190 mg/dL H 0-150 HDL-CHOLESTEROL 40 mg/dL >40 LDL (CALC) 94 mg/dL 0-99.9 Dec 18, 2018 08:45 AM [employer] PROSTATIC SPECIFIC ANTIGEN (TOTAL) Specimen Type: SERUM [...] Negative Negative Dec 18, 2018 08:45 AM [facility] MICROALBUMIN (ANANT,WI) RANDO M URINE Specimen Type: URINE Comment: Microalbumin is below the linearity of the instrument, unable to calculate the albumin/creatinine ratio. *MICROALBUMIN,RAND < 5 ug/mL *MICROALB/CREAT canc mcg/mg cr *PROT/AUTO RENTAL SUPERVISOR RATIO 0.1 *UR PROTEIN 8 mg/dL [...] (diso rder) [facility], VISN 15 PLAVIX September 08, [...] TEST BLOOD GLUCOSE 50 Dec 19, 2019 [id number] September 04, 2019 PAMELA RAMSEY ACCU-CHEK CHARLES PLUS (GLUCOSE) TEST STRIP Discontinued USE 1 STRIP FOR TESTING TWO TIMES PER WEEK - DIRECTED TO TEST BLOOD GLUCOSE 50 Jul 25, 2019 [id number] Nov 12, 2018 PAMELA RAMSEY ALBUTEROL SO4 90MCG/ACTUAT (CFC-F) INHL,ORAL,6.7GM Active INHALE 2 PUFFS BY ORAL INHALATION EVERY 4 HOURS NEEDED FOR BREATHING. SHAKE WELL. RINSE MOUTHPIECE FREQUENTLY TO PREVENT CLOGGING. USE NEEDED FOR SHORTNESS OF AIR/WHEEZING FOR BREATHING. SHAKE WELL. RINSE MOUTHPIECE FREQUENTLY TO PREVENT CLOGGING. USE NEEDED FOR SHORTNESS OF AIR/WHEEZING 1 Dec 19, 2019 [id number] September 04, 2019 PAMELA RAMSEY [facility] ALCOHOL PREP PAD Active USE 1 PAD ON SKIN BIW TO CLEAN AND DISINFECT THE SKIN 200 Sep 29, 2020 [id number] Sep 30, 2019 MAURICIO RANKIN [facility] ALCOHOL PREP PAD Discontinued USE 1 PAD ON SKIN BI W TO CLEAN AND DISINFECT THE SKIN 200 Dec 19, 2019 [id number] Jun 06, 2019 PAMELA RAMSEY CBGUILLERMO ALCOHOL PREP PAD Discontinued USE 1 PAD ON SKIN BI W TO CLEAN AND DISINFECT THE SKIN 200 Jul 25, 2019 [id number] Nov 12, 2018 PAMELA RAMSEY [facility] ASCORBIC ACID 250MG TAB Non-VA TAKE ONE TABLET BY MOUTH ONCE A DAY Non-VA Documented by: SHANIQUA SCHMIDT nted at: [facility] ASPIRIN 25MG/DIPYRIDAMOLE 200MG CAP,SA Active T CHAPIN 1 CAPSULE BY MOUTH TWO TIMES A DAY - SWALLOW WHOLE. DO NOT CRUSH OR CHEW. FOR RECURRENT TIA/STROKE 180 Dec 19, 2019 [id number] Dec 20, 2018 PAMELA RAMSEY ASPIRIN 25MG/DIPYRIDAMOLE 200MG CAP,SA Discontinued T CHAPIN 1 CAPSULE BY MOUTH TWO TIMES A DAY - SWALLOW WHOLE. DO NOT CRUSH OR CHEW. FOR RECURRENT TIA/STROKE 180 Feb 06, 2019 [id number] Sep 28, 2018 ZACHARY GRECO ASPIRIN 81MG TAB,EC Non- VA TAKE ONE TABLET BY MOUTH ONCE A DAY Non-VA Documented by: PADMA LONG nted at: [facility] ATORVASTATIN CA 80MG TAB Active TAKE ONE TABLET BY MOUTH AT BEDTIME FOR CHOLESTEROL - REPORT ANY UNEXPLAINED MUSCLE PAIN/WEAKNESS TO YOUR PROVIDER 90 Dec 19, 2019 [id number] September 04, 2019 PAMELA RAMSEY ATORVASTATIN CA 80MG TAB Discontinued TAKE ONE TABLET BY MOUTH AT BEDTIME FOR CHOLESTEROL - REPORT ANY UNEXPLAINED MUSCLE PAIN/WEAKNESS TO YOUR PROVIDER 90 Dec 20, 2018 [id number] Nov 12, 2018 PAMELA RAMSEY BUDESONIDE 160MCG/FORMOTEROL FUM 4.5MCG/SPRAY INHL,ORAL,10.2 GM Active INHALE 2 PUFFS BY MOUTH TWO TIMES A DAY FOR BREATHING. SHAKE WELL. RINSE MOUTH AND SPIT AFTER EACH USE. 3 Apr 24, 2020 [id number] August 22, 2019 LISSA OATES [facility] CALCIUM/VITAMIN D TAB No n-VA TAKE BY MOUTH ONCE A DAY Non-V A Documented by: PADMA LONG nted at: [facility] CARBOXYMETHYLCELLULOSE NA 0.5% SOLN,OPH Active INSTILL ONE DROP IN BOTH EYES FOUR TIMES A DAY FOR DRY EYES 15 Feb 01, 2020 [id number] September 03 0 [place] [facility] DICLOFENAC NA 1% GEL,TOP Discontinued APPLY 2 GRAMS A FFECTED AREA TWO TIMES A DAY NEEDED FOR PAIN AND INFLAMMATION. DO NOT EXCEED 16GM DAILY TO ANY AFFECTED JOINT OF LOWER EXTREMITIES. DO NOT EXCEED 8GM DAILY TO ANY AFFECTED JOINT OF UPPER EXTREMITES. DO NOT EXCEED TOTAL DOSE OF 32GM DAILY FOR ALL JOINTS. 100 Oct 31, 2018 [id number] Oct 06, 2018 ANAYELI KIRKPATRICK [facility] DICLOFENAC NA 1% GEL,TOP APPLY 2 GRAMS A FFECTED AREA TWO TIMES A DAY NEEDED FOR PAIN AND INFLAMMATION. DO NOT EXCEED 16GM DAILY TO ANY AFFECTED JOINT OF LOWER EXTREMITIES. DO NOT EXCEED 8GM DAILY TO ANY AFFECTED JOINT OF UPPER EXTREMITES. DO NOT EXCEED TOTAL DOSE OF 32GM DAILY FOR ALL JOINTS. 100 Jan 17, 2019 [id number] Dec 20, 2018 PAMELA RAMSEY FLUTICASONE PROPIONATE 50MCG/SPRAY SOLN,NASAL,16GM Active INSTILL 1 SPRAY IN EACH NOSTRIL ONCE A DAY SHAKE GENTLY BEFORE USE! - MUST BE USED DIRECTED FOR 3 WEEKS TO PROVIDE BENEFIT. * NO EARLY REFILLS * 1UNIT = 30DAYS AT 4 PF/DAY OR 60DAYS AT 2PF/DAY 2 Dec 19, 2019 [id number] August 26, 2019 BRAULIO,PAMELA P [facility] KETOTIFEN 0.025% SOLN,OPH Active INSTILL 1 DROP IN BOTH EYES TWO TIMES A DAY FOR RELIEF OF ALLERGY SYMPTOMS IN EYE(S) 10 Feb 01, 2020 [id number] September 04, 2019 [place] [facility] LANCET,SOFTCLIX Active USE LANCET BIW FOR TESTING BL OOD GLUCOSE DIRECTED 100 Sep 29, 2020 [id number] Sep 30, 2019 CHUCHOMAURICIO [facility] LANCET,SOFTCLIX Discontinued USE LANCET BIW FO R TESTING BLOOD GLUCOSE DIRECTED 100 Dec 19, 2019 [id number] Jun 06, 2019 [facility]ELA RAMSEY [facility] LANCET,SOFTCLIX Discontinued USE LANCET BIW FO R TESTING BLOOD GLUCOSE DIRECTED 100 Jul 25, 2019 [id number] Nov 12, 2018 PAMELA RAMSEY LISINOPRIL 40MG TAB Non- VA TAKE ONE-HALF TABLET BY MOUTH EVERY MORNING Non-VA Documented by: PAMELA RAMSEY nted at: [facility] LORATADINE/PSEUDOEPHEDRINE TAB,SA Non-VA TAKE BY MOUTH No n-VA Documented by: JUAN LANG nted at: ART[facility] BLAS [facility] MAGNESIUM OXIDE 400MG TAB Non-VA TAKE ONE TABLET BY MOUTH ONCE A DAY Non-VA Documented by: SHANIQUA SCHMIDT nted at: [facility] METFORMIN HCL 500MG TAB Non-VA TAKE ONE TABLET BY MOUTH TWO TIMES A DAY WITH BREAKFAST AND EVENING MEAL Non-VA Documented by: SHANIQUA SCHMIDT nted at: [facility] MULTIVITAMINS CAP/TAB No n-VA TAKE 1 CAP/TAB BY MOUTH ONCE A DAY Non-VA Documented by: SHANIQUA SCHMIDT nted at: [facility] OMEPRAZOLE 20MG CAP,EC Active TAKE 2 CAPSULES B Y MOUTH BEFORE BREAKFAST 30 MINUTES BEFORE EATING TO LOWER STOMACH ACID (REPLACES ACIPHEX) 180 Dec 19, 2019 [id number] August 26, 2019 PAMELA RAMSEY POLYETHYLENE GLYCOL [...] Documented by: KATHERINE MATT Docume nted at: [facility] PREGABALIN 150MG CAP,ORAL Non-VA TAKE 1 CAPSULE BY MOUTH TWO TIMES A DAY Non-VA Docume nted by: PAMELA RAMSEY Docume nted at: [facility] SEMAGLUTIDE INJ,SOLN Non -VA INJECT SUBCUTANEOUSLY EVERY WEEK Non-VA Documented by: ANAYELI KIRKPATRICK Docume nted at: [facility] TERBINAFINE HCL 1% CREAM,TOP Active APPLY LIGHT LY TO AFFECTED AREA TWO TIMES A DAY FOR INFECTION Sep 23, 2020 [id number] Sep 24, 2019 ADRIEL HERNANDEZ UREA 20% CREAM,TOP Active APPLY LIGHTLY (20%) TO AFFECTED AREA TWO TIMES A DAY NEEDED TO PROMOTE HEALING,RUB IN UNTIL COMPLETELY ABSORBED*FOR TOPICAL USE ONLY* APPLY TO BOTH FEET DIRECTED. Sep 25, 2020 [id number] Sep 26, 2019 ADRIEL HERNANDEZ Problems (Conditions): [...] Alcohol intake above recommended sensible limits Active 997923309 PADMA LONG [facility] Allergic conjunctivitis Active [id number] LOMANNEDA [facility] Bilateral senile combined form cataracts of eyes Active [id number] 9108 [facility] Bilateral tinnitus Active [id number] CHASTITY JEAN [facility] Coronary arteriosclerosis Active 88692569 September 08, 2014 Entered By: PADMA LONG Comment: hx of ptca to RCA several yrs. 2014 Entered By: PADMA LONG Comment: heart cath 09/01/14, neg. / previous stent to RCA,, via abida meneses ks HATCHER, JENNEY R [facility] Diabetes mellitus Active 44286596 PAMELA RAMSEY 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 Dry eyes Active [id number] [place] SHAW [facility] Gastro-esophageal reflux disease without esophagitis ( SNOMED CT 221891753) Active 813853818 ALF GUEVARA [facility] History of malignant neoplasm of lung Active 454090022 CHAPO BARRETO [facility] Hyperlipidemia (SNOMED CT 50077616) Active 89772399 PAMELA RMASEY [facility] Lung mass Active 256415950 September 08, 2014 E ntered By: PADMA LONG Comment: 4.5 cm mass, post. segment right upper lobe.September 08, 2014 Entered By: PADMA LONG Comment: mild adenopathy in mediastinum and bilat. hilaMay 2014 Entered By: PADMA LONG Comment: most likely related to lung cancerMa2014 Entered By: PADMA LONG Comment: per ct angio of chest with contrast 09/01/14,via abida meneses ksSep 23, 2014 Entered By: PADMA LONG Comment: per path report- mod. differentiated bronchogenic adenoca. 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 Obesity Active 536852238 SONG BULLOCK [facility] Obstructive sleep apnea syndrome (SNOMED CT 54295023) Active 664358 015 EVONNEPHILIPPE ARTUR [facility] Pancreatic cyst Active 85358435 JAYLENE GUEVARA [facility] Papilloma of right eyelid Active [id number] [place] SH[place] [facility] Polyp of colon Active 57862661 Jan 23 Entered By: PADMA LONG Comment: c-scope 01/17/16, multiple benign colonic polypsJun 28, 2017 Entered By: PADMA LONG Comment: c-scope,06/25/17,[facility], three benign polyps- sigmoid colon, transverse colon,cecum. see path report cprs SHARRON TORRES [facility] Pulmonary emphysema Active 51560859 0 BRIANA GAVIN [facility] Sensorineural hearing loss, bilateral Active 864587115 CHASTITY JEAN [facility] Snoring Active 15000854 SONG BULLOCK [facility] Type 2 diabetes mellitus without complication Active 438487636 [place] [facility] Environmental Allergies (ICD-9-CM 477.9) Inactive 477.9 Dec 18, 2017 PADMA LONG [facility] External hemorrhoids without mention of complication (ICD-9- CM 455.3) Inactive 455.3 Dec 18, 2017 PADMA LONG [facility] Impotence of organic origin (ICD-9-CM 607.84) Inactive 607.84 Dec 18, 2017 PADMA LONG [facility] Screening for Lipoid disorders (ICD-9-CM V77.91) Inactive V77.91 Jan 18, 2007 [facility] Stye * (ICD-9-CM 373.11) Inactive 373.11 Dec 18, 201 8 Jan 18, 2007 Entered By: PADMA LONG Comment: bilat lower lids, chronic/recurrent [facility] Tobacco Use Disorder, Continuous Inactive 305.1 Dec 18, 2017 Jan 18, 2007 Entered By: PADMA LONG Comment: one ppd PADMA LONG [facility] Radiology Reports: +/- 30 days of the encounter No Data Provided for This Section Pathology Reports: +/- 30 days of the encounter No Data Provided for This Section Encounter Notes: All associated encounter notes No Data Provided for This Section
--- OUTSIDE RECORDS SUMMARY | 2019-12-02 07:39 | XMS REPORT | Encounter Summary ---
Author Author 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 Date/Time Encounter Type Encounter Description Reason Provider Source Dec 05, 2018 03:38 PM Outpatient Encounter TELEPHONE BY STAFF ICD-10-CM I25.10 Athscl heart disease of [place] coronary artery w/o jaden muñoz with Provider Comments: Atherosclerotic Heart Disease of [place] Coronary Artery without Angina Pectoris KALA JONES [facility] IHE Encounter Template Text not used by PA Assessments - Encounter Diagnoses This section includes the primary and secondary diag noses documented for the Encounter. Date/Time Primary/Secondary Diagnosis Diagnosis Name Provider Source Dec 05, 2018 03:38 PM PRIMARY Athscl heart disea se of [place] coronary artery w/o jaden pctKALA Hammond [facility] Plan of Treatment: Future Appointments (+ [...] nts. The data comes from all [facility]. Appointment Date/Time Appointment Type Appointment Facili ty Name Dec 18, 2018 09:00 AM AMBULATORY - MEDICINE [facility] Dec 18, 2018 10:00 AM [facility] Dec 18, 2018 10:01 AM AMBULATORY - NONE [facility] Jan 06, 2019 11:00 AM [facility] Jan 31, 2019 09:00 AM AMBULATORY - MEDICINE [facility] Mar 10, 2019 12:30 PM AMBULATORY - SURGERY [facility] Mar 21, 2019 09:15 AM AMBULATORY - NONE [facility] Mar 21, 2019 09:30 AM AMBULATORY - MEDICINE [facility] Mar 21, 2019 09:31 AM AMBULATORY - MEDICINE [facility] LaresJuan M [facility] Mar 21, 2019 10:00 AM AMBULATORY - MEDICINE [facility] Mar 21, 2019 10:01 AM AMBULATORY - MEDICINE ARTUR LaresJuan M [facility] Mar 26, 2019 10:00 AM [facility] NONE [facility] Apr 03, 2019 10:00 AM AMBULATORY - SURGERY ARTUR BLAS [facility] Apr 14, 2019 10:00 AM AMBULATORY - SURGERY [facility] Apr 28, 2019 11:00 AM AMBULATORY - NONE [facility]UR BLAS [facility] Surgical Procedures: [...] Range Comment Dec 18, 2018 08:45 AM [facility] CBC & DIFF Specimen Type: BLOOD [...] 18, 2018 08:45 AM [facility] COMPREHENSIVE METABOLIC PA KELLE Specimen Type: [...] 18, 2018 08:45 AM [facility] LIPID PROFILE(HDL,TRIG,CHO L,LDL) Specimen Type: PLASMA [...] < 5 ug/mL *MICROALB/CREAT canc mcg/mg cr *PROT/HYPNOTHERAPIST RATIO 0.1 *UR PROTEIN 8 mg/dL *UR [...] 15 YRS OR MORE PORSHA BLAS [facility] Tobacco Use History This section includes a history of the smoking, or tobacco -related health factors, that were collected on or before the date of the Encoun ter. The data comes from the PA facility where the Encounter took place. Date/Time Smoking Status/Tobacco Use Comment [facility] Jun 26, 2018 02:13 PM VA-TOBACCO QUIT 15 YRS OR MORE [facility] Jun 27, 2017 01:39 PM NON-TOBACCO [...] patient. The data comes from a [facility] treatment facilities. It does not list [...] drug (diso rder) [facility] Medications: [...] may be a prescription from either the PA or other providers that was filled outside [...] TEST BLOOD GLUCOSE 50 Dec 19, 2019 [id number] September 04, 2019 PAMELA RAMSEY ACCU-CHEK CHARLES PLUS (GLUCOSE) TEST STRIP Discontinued USE 1 STRIP FOR TESTING TWO TIMES PER WEEK - DIRECTED TO TEST BLOOD GLUCOSE 50 Jul 25, 2019 [id number] Nov 12, 2018 PAMELA RAMSEY CB ALBUTEROL SO4 90MCG/ACTUAT (CFC-F) INHL,ORAL,6.7GM Active INHALE 2 PUFFS BY ORAL INHALATION EVERY 4 HOURS NEEDED FOR BREATHING. SHAKE WELL. RINSE MOUTHPIECE FREQUENTLY TO PREVENT CLOGGING. USE NEEDED FOR SHORTNESS OF AIR/WHEEZING FOR BREATHING. SHAKE WELL. RINSE MOUTHPIECE FREQUENTLY TO PREVENT CLOGGING. USE NEEDED FOR SHORTNESS OF AIR/WHEEZING 1 Dec 19, 2019 [id number] September 04, 2019 PAMELA RAMSEY ALCOHOL PREP PAD Active USE 1 PAD ON SKIN BIW TO CLEAN AND DISINFECT THE SKIN 200 Sep 29, 2020 [id number] Sep 30, 2019 MAURICIO RANKIN [facility] ALCOHOL PREP PAD Discontinued USE 1 PAD ON SKIN BI W TO CLEAN AND DISINFECT THE SKIN 200 Dec 19, 2019 [id number] Jun 06, 2019 PAMELA RAMSEY CBGUILLERMO ALCOHOL PREP PAD Discontinued USE 1 PAD ON SKIN BI W TO CLEAN AND DISINFECT THE SKIN 200 Jul 25, 2019 [id number] Nov 12, 2018 PAMELA RAMSEY ASCORBIC ACID 250MG TAB Non-VA TAKE ONE TABLET BY MOUTH ONCE A DAY Non-VA Documented by: SHANIQUA SCHMIDT nted at: [facility] ASPIRIN 25MG/DIPYRIDAMOLE 200MG CAP,SA Active T CHAPIN 1 CAPSULE BY MOUTH TWO TIMES A DAY - SWALLOW WHOLE. DO NOT CRUSH OR CHEW. FOR RECURRENT TIA/STROKE 180 Dec 19, 2019 [id number] Dec 20, 2018 PAMELA RASMEY [facility] ASPIRIN 25MG/DIPYRIDAMOLE 200MG CAP,SA Discontinued T CHAPIN 1 CAPSULE BY MOUTH TWO TIMES A DAY - SWALLOW WHOLE. DO NOT CRUSH OR CHEW. FOR RECURRENT TIA/STROKE 180 Feb 06, 2019 [id number] Sep 28, 2018 ZACHARY GRECO [facility] ASPIRIN 81MG TAB,EC Non- VA TAKE ONE TABLET BY MOUTH ONCE A DAY Non-VA Documented by: PADMA LONG nted at: [facility] ATORVASTATIN CA 80MG TAB Active TAKE ONE TABLET BY MOUTH AT BEDTIME FOR CHOLESTEROL - REPORT ANY UNEXPLAINED MUSCLE PAIN/WEAKNESS TO YOUR PROVIDER 90 Dec 19, 2019 [id number] September 04, 2019 PAMELA RAMSEY ATORVASTATIN CA 80MG TAB Discontinued TAKE ONE TABLET BY MOUTH AT BEDTIME FOR CHOLESTEROL - REPORT ANY UNEXPLAINED MUSCLE PAIN/WEAKNESS TO YOUR PROVIDER 90 Dec 20, 2018 [id number] Nov 12, 2018 PAMELA RAMSEY BUDESONIDE 160MCG/FORMOTEROL FUM 4.5MCG/SPRAY INHL,ORAL,10.2 GM Active INHALE 2 PUFFS BY MOUTH TWO TIMES A DAY FOR BREATHING. SHAKE WELL. RINSE MOUTH AND SPIT AFTER EACH USE. 3 Apr 24, 2020 [id number] August 22, 2019 [facility] CALCIUM/VITAMIN D TAB No n-VA TAKE BY MOUTH ONCE A DAY Non-V A Documented by: PADMA LONG nted at: [facility] CARBOXYMETHYLCELLULOSE NA 0.5% SOLN,OPH Active INSTILL ONE DROP IN BOTH EYES FOUR TIMES A DAY FOR DRY EYES 15 Feb 01, 2020 [id number] September 03 0 [facility] DICLOFENAC [...] FOR ALL JOINTS. 100 Oct 31, 2018 [id number] Oct 06, 2018 [facility] DICLOFENAC NA 1% GEL,TOP APPLY 2 GRAMS A FFECTED AREA TWO TIMES A DAY NEEDED FOR PAIN AND INFLAMMATION. DO NOT EXCEED 16GM DAILY TO ANY AFFECTED JOINT OF LOWER EXTREMITIES. DO NOT EXCEED 8GM DAILY TO ANY AFFECTED JOINT OF UPPER EXTREMITES. DO NOT EXCEED TOTAL DOSE OF 32GM DAILY FOR ALL JOINTS. 100 Jan 17, 2019 [id number] Dec 20, 2018 PAMELA RAMSEY [facility] FLUTICASONE PROPIONATE 50MCG/SPRAY SOLN,NASAL,16GM Active INSTILL 1 SPRAY IN EACH NOSTRIL ONCE A DAY SHAKE GENTLY BEFORE USE! - MUST BE USED DIRECTED FOR 3 WEEKS TO PROVIDE BENEFIT. * NO EARLY REFILLS * 1UNIT = 30DAYS AT 4 PF/DAY OR 60DAYS AT 2PF/DAY 2 Dec 19, 2019 [id number] August 26, 2019 PAMELA RAMSEY KETOTIFEN 0.025% SOLN,OPH Active INSTILL 1 DROP IN BOTH EYES TWO TIMES A DAY FOR RELIEF OF ALLERGY SYMPTOMS IN EYE(S) Feb 01, 2020 [id number] September 04, 2019 [facility] LANCET,SOFTCLIX Active USE LANCET BIW FOR TESTING BL OOD GLUCOSE DIRECTED 100 Sep 29, 2020 [id number] Sep 30, 2019 MAURICIO RANKIN [facility] LANCET,SOFTCLIX Discontinued USE LANCET BIW FO R TESTING BLOOD GLUCOSE DIRECTED 100 Dec 19, 2019 [id number] Jun 06, 2019 PAMELA RAMSEY LANCET,SOFTCLIX Discontinued USE LANCET BIW FO R TESTING BLOOD GLUCOSE DIRECTED 100 Jul 25, 2019 [id number] Nov 12, 2018 PAMELA RAMSEY LISINOPRIL 40MG TAB Non- VA TAKE ONE-HALF TABLET BY MOUTH EVERY MORNING Non-VA Documented by: PAMELA RAMSEY nted at: [facility] LORATADINE/PSEUDOEPHEDRINE TAB,SA Non-VA TAKE BY MOUTH No n-VA Documented by: JUAN LANGume nted at: ARTUR BLAS [facility] MAGNESIUM OXIDE 400MG TAB Non-VA TAKE [...] ACID (REPLACES ACIPHEX) 180 Dec 19, 2019 [id number] August 26, 2019 PAMELA RAMSEY POLYETHYLENE GLYCOL [...] Documented by: KATHERINE MATT nted at: [facility] PREGABALIN 150MG CAP,ORAL Non-VA TAKE 1 CAPSULE BY MOUTH TWO TIMES A DAY Non-VA Docume nted by: PAMELA RAMSEY nted at: [facility] SEMAGLUTIDE INJ,SOLN Non -VA INJECT SUBCUTANEOUSLY EVERY WEEK Non-VA Documented by: ANAYELI KIRKPATRICK nted at: ARTUR BLAS [facility] TERBINAFINE HCL 1% CREAM,TOP Active APPLY LIGHT LY TO AFFECTED AREA TWO TIMES A DAY FOR INFECTION 90 Sep 23, 2020 [id number] Sep 24, 2019 ADRIEL HERNANDEZ UREA 20% CREAM,TOP Active APPLY LIGHTLY (20%) TO AFFECTED AREA TWO TIMES A DAY NEEDED TO PROMOTE HEALING,RUB IN UNTIL COMPLETELY ABSORBED*FOR TOPICAL USE ONLY* APPLY TO BOTH FEET DIRECTED. 90 Sep 25, 2020 [id number] Sep 26, 2019 ADRIEL HERNANDEZ Problems (Conditions): [...] Alcohol intake above recommended sensible limits Active 403156661 PADMA LONG [facility] Allergic conjunctivitis Active 020461897 [facility] Bilateral senile combined form cataracts of eyes Active [id number] 9108 [facility] Bilateral tinnitus Active 9199718949891 [facility] Coronary arteriosclerosis Active 10704542 September 08, 2014 Entered By: PADMA LONG Comment: hx of ptca to RCA several yrs. agoSeptember 08, 2014 Entered By: PADMA LONG Comment: heart cath 09/01/14, neg. 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 segment right upper lobe.September 08, 2014 Entered By: PADMA LONG Comment: mild adenopathy in mediastinum and bilat. hilaMay 2014 Entered By: PADMA LONG Comment: most likely related to lung cancerMay 2014 Entered By: PADMA LONG Comment: per ct angio of chest with contrast 09/01/14,[place] Entered By: PADMA LONG Comment: per path report- mod. differentiated bronchogenic adenoca. 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 Active 88720336 [facility]INE M[facility] Obesity Active 495717023 [facility] Obstructive sleep apnea syndrome (SNOMED CT 26080154) Active 454438 015 [facility] Pancreatic cyst Active 80423640 [facility] Papilloma of right eyelid Active [id number] [facility] Polyp of colon Active 58607160 Jan 23 Entered By: PADMA LONG Comment: c-scope 01/17/16, multiple benign colonic polypsMar 2017 Entered By: PADMA LONG Comment: c-scope,06/25/17,[facility], three benign polyps- sigmoid colon, transverse colon,cecum. see path report cprs SHARRON TORRES [facility] Pulmonary emphysema Active 72053930 0 BRIANA LESLYE [facility] Sensorineural hearing loss, bilateral Active 169420026 [facility] Snoring Active 39289560 [facility] Type 2 diabetes mellitus without complication Active 920588723 [facility] Environmental Allergies (ICD-9-CM 477.9) [...] Comment: bilat lower lids, chronic/recurrent PADMA LONG [facility] Tobacco Use Disorder, Continuous Inactive 305.1 Dec 18, 2017 Jan 18, 2007 Entered By: PADMA LONG Comment: one ppd PADMA LONG [facility] Radiology Reports: +/- 30 days of the encounter No Data Provided for This Section Pathology Reports: +/- 30 days of the encounter No Data Provided for This Section Encounter Notes: All associated encounter notes This section contains the clinical notes associated to the Encounter. Date/Time Encounter Note(s) Provider Source Dec 05, 2018 03:53 PM CARE COORDINATION [facility]: LOCAL TITLE: WI-CCHT RESCINDED. STANDARD TITLE: CARE COORDINATION HOME TELEHEALTH DISCHARGE NOTE DATE OF NOTE: DEC 05, 2018@15:53 ENTRY DATE: DEC 05, 2018@15:53:33 AUTHOR: KALA JONES COSIGNER: URGENCY: STATUS: COMPLETED see ht discharge note. /es/ KLAA JONES RN, BSN Signed: 12/05/2018 15:53 KALA JONES LudaJuan M [facility] Dec 05, 2018 03:44 PM CARE COORDINATION HOME TELEH EALTH DISCHARGE NOTE: LOCAL TITLE: HT DISCHARGE NOTE STANDARD TITLE: CARE COORDINATION HOME TELEHEALTH DISCHARGE NOTE DATE OF NOTE: DEC 05, 2018@15:44 ENTRY DATE: DEC 05, 2018@15:44:44 AUTHOR: KALA JONES COSIGNER: URGENCY: STATUS: COMPLETED HOME TELEHEALTH (HT) DISCHARGE NOTE Dates of enrollment: No 'HT Enrollment Starting Date' data found No enrollment reason documented To: Date: December 05, 2018 HT PROGRAM DIAGNOSIS(ES): Other: CAD Summary of Program Enrollment/Participation: trends last 180 days: [facility] BOB (-[id number]) Vital Sign Data for: 06/09/2018 - 12/05/2018 (All times are SHEEP BONER; All weights are lbs) Primary DMP: CAD [...] PAMELA Cortes 12/24/2018 12:44 /gisell/ KALA FAIR [facility]
--- OUTSIDE RECORDS SUMMARY | 2019-12-02 07:39 | XMS REPORT | Encounter Summary ---
Author [facility] Address [address] [place] [address] Phone Unavailable Care Team Providers Care Envelope Sealer Operator Name Role Phone ADRIEL HERNANDEZ PCP Unavailable Insurance Providers: All historical and current No Data Provided for This Section Selected Encounter This section includes the information on record at [place] for the Encounter. Date/Time Encounter Type Encounter Description Reason Provider Source Dec 05, 2018 03:38 PM Outpatient Encounter TELEPHONE BY STAFF ICD-10-CM I25.10 [facility] heart disease of [place] coronary artery w/o jaden muñoz with Provider Comments: Atherosclerotic Heart Disease of [place] Coronary Artery without Angina Pectoris KALA JONES [facility] IHE Encounter Template Text not used by ME Assessments - Encounter Diagnoses This section includes the primary and secondary diag noses documented for the Encounter. Date/Time Primary/Secondary Diagnosis Diagnosis Name Provider Source Dec 05, 2018 03:38 PM PRIMARY Athscl heart disea se of [place] coronary artery w/o jaden pctKALA Hammond [facility] Plan of Treatment: [...] appointme nts. The data comes from all [facility]. Appointment Date/Time Appointment Type Appointment Facili ty Name Dec 18, 2018 09:00 AM AMBULATORY - MEDICINE [facility] Dec 18, 2018 10:00 AM [facility] Dec 18, 2018 10:01 AM AMBULATORY - NONE [facility] Jan 06, 2019 11:00 AM [facility] Jan 31, 2019 09:00 AM AM[facility]ULATORY - MEDICINE [facility] Mar 10, 2019 12:30 PM AMBULATORY - SURGERY [facility] Mar 21, 2019 09:15 AM AMBULATORY - NONE [facility] Mar 21, 2019 09:30 AM AMBULATORY - MEDICINE [facility] Mar 21, 2019 09:31 AM AMBULATORY - MEDICINE ARTUR LaresJuan M SIMSMila [facility] Mar 21, 2019 10:00 AM AMBULATORY - MEDICINE [facility] Mar 21, 2019 10:01 AM AMBULATORY - MEDICINE ARTUR LaresJuan M LEVIE V [facility] Mar 26, 2019 10:00 AM [facility]UL[facility]ORY - NONE [facility] Apr 03, 2019 10:00 AM AMBULATORY - SURGERY [facility]UR BLAS [facility] Apr 14, 2019 10:00 AM AMBULATORY - SURGERY [facility] Apr 28, 2019 11:00 AM AMBULATORY - NONE [facility] Surgical Procedures: All associated to [...] Comment Dec 18, 2018 08:45 AM [facility] CBC & DIFF Specimen Type: BLOOD [...] Dec 18, 2018 08:45 AM [facility] COMPREHENSIVE METABOLIC PA KELLE Specimen Type: PLASMA [...] Dec 18, 2018 08:45 AM [facility] LIPID PROFILE(HDL,TRIG,CHO L,LDL) Specimen Type: PLASMA [...] < 5 ug/mL *MICROALB/CREAT canc mcg/mg cr *PROT/KENNEL KEEPER RATIO 0.1 *UR PROTEIN 8 mg/dL *UR [...] OR MORE [facility] Tobacco Use History This section includes a history of the smoking, or tobacco -related health factors, that were collected on or before the date of the Encoun ter. The data comes from the [place] facility where the Encounter took place. Date/Time Smoking Status/Tobacco Use Comment [facility] Jun 26, 2018 02:13 PM VA-TOBACCO QUIT 15 YRS OR MORE [facility] Jun 27, 2017 01:39 PM NON-TOBACCO USER [...] patient. The data comes from a [facility] treatment facilities. It does not list Allergies/ADRs that were removed or entered in error. Some allergies/ADRs may be reported in t Immunization section. Allergen Event Date Event Type Reaction(s) Severity Source [place] September 08, 2014 Propensity to adverse reactions to drug (diso rder) [facility] 15 [place] September 08, 2014 Propensity to adverse reactions to drug (diso rder) [facility] Medications: [facility] dispensed (-15 months) [...] may be a prescription from either the [place] or other providers that was filled outside [...] TEST BLOOD GLUCOSE 50 Dec 19, 2019 [id number] September 04, 2019 PAMELA RAMSEY ACCU-CHEK CHARLES PLUS (GLUCOSE) TEST STRIP Discontinued USE 1 STRIP FOR TESTING TWO TIMES PER WEEK - DIRECTED TO TEST BLOOD GLUCOSE 50 Jul 25, 2019 [id number] Nov 12, 2018 PAMELA RAMSEY CB ALBUTEROL SO4 90MCG/ACTUAT (CFC-F) INHL,ORAL,6.7GM Active INHALE 2 PUFFS BY ORAL INHALATION EVERY 4 HOURS NEEDED FOR BREATHING. SHAKE WELL. RINSE MOUTHPIECE FREQUENTLY TO PREVENT CLOGGING. USE NEEDED FOR SHORTNESS OF AIR/WHEEZING FOR BREATHING. SHAKE WELL. RINSE MOUTHPIECE FREQUENTLY TO PREVENT CLOGGING. USE NEEDED FOR SHORTNESS OF AIR/WHEEZING 1 Dec 19, 2019 [id number] September 04, 2019 PAMELA RAMSEY ALCOHOL PREP PAD Active USE 1 PAD ON SKIN BIW TO CLEAN AND DISINFECT THE SKIN 200 Sep 29, 2020 [id number] Sep 30, 2019 MAURICIO RANKIN [facility] ALCOHOL PREP PAD Discontinued USE 1 PAD ON SKIN BI W TO CLEAN AND DISINFECT THE SKIN 200 Dec 19, 2019 [id number] Jun 06, 2019 PAMELA RAMSEY CBGUILLERMO ALCOHOL PREP PAD Discontinued USE 1 PAD ON SKIN BI W TO CLEAN AND DISINFECT THE SKIN 200 Jul 25, 2019 [id number] Nov 12, 2018 PAMELA RAMSEY ASCORBIC ACID 250MG TAB Non-VA TAKE ONE TABLET BY MOUTH ONCE A DAY Non-VA Documented by: SHANIQUA SCHMIDT nted at: [facility] ASPIRIN 25MG/DIPYRIDAMOLE 200MG CAP,SA Active T CHAPIN 1 CAPSULE BY MOUTH TWO TIMES A DAY - SWALLOW WHOLE. DO NOT CRUSH OR CHEW. FOR RECURRENT TIA/STROKE 180 Dec 19, 2019 [id number] Dec 20, 2018 PAMELA RAMSEY [facility] ASPIRIN 25MG/DIPYRIDAMOLE 200MG CAP,SA Discontinued T CHAPIN 1 CAPSULE BY MOUTH TWO TIMES A DAY - SWALLOW WHOLE. DO NOT CRUSH OR CHEW. FOR RECURRENT TIA/STROKE 180 Feb 06, 2019 [id number] Sep 28, 2018 ZACHARY GRECO [facility] ASPIRIN 81MG TAB,EC Non- VA TAKE ONE TABLET BY MOUTH ONCE A DAY Non-VA Documented by: PADMA LONG nted at: [facility] ATORVASTATIN CA 80MG TAB Active TAKE ONE TABLET BY MOUTH AT BEDTIME FOR CHOLESTEROL - REPORT ANY UNEXPLAINED MUSCLE PAIN/WEAKNESS TO YOUR PROVIDER 90 Dec 19, 2019 [id number] September 04, 2019 PAMELA RAMSEY ATORVASTATIN CA 80MG TAB Discontinued TAKE ONE TABLET BY MOUTH AT BEDTIME FOR CHOLESTEROL - REPORT ANY UNEXPLAINED MUSCLE PAIN/WEAKNESS TO YOUR PROVIDER 90 Dec 20, 2018 [id number] Nov 12, 2018 PAMELA RAMSEY BUDESONIDE 160MCG/FORMOTEROL FUM 4.5MCG/SPRAY INHL,ORAL,10.2 GM Active INHALE 2 PUFFS BY MOUTH TWO TIMES A DAY FOR BREATHING. SHAKE WELL. RINSE MOUTH AND SPIT AFTER EACH USE. 3 Apr 24, 2020 [id number] August 22, 2019 LISSA OATES [facility] CALCIUM/VITAMIN D TAB No n-VA TAKE BY MOUTH ONCE A DAY Non-V A Documented by: PADMA LONG nted at: [facility] CARBOXYMETHYLCELLULOSE NA 0.5% SOLN,OPH Active INSTILL ONE DROP IN BOTH EYES FOUR TIMES A DAY FOR DRY EYES 15 Feb 01, 2020 [id number] September 03 0 [facility] DICLOFENAC NA 1% GEL,TOP Discontinued APPLY 2 GRAMS A FFECTED AREA TWO TIMES A DAY NEEDED FOR PAIN AND INFLAMMATION. DO NOT EXCEED 16GM DAILY TO ANY AFFECTED JOINT OF LOWER EXTREMITIES. DO NOT EXCEED 8GM DAILY TO ANY AFFECTED JOINT OF UPPER EXTREMITES. DO NOT EXCEED TOTAL DOSE OF 32GM DAILY FOR ALL JOINTS. 100 Oct 31, 2018 [id number] Oct 06, 2018 ANAYELI KIRKPATRICK [facility] DICLOFENAC NA 1% GEL,TOP APPLY 2 GRAMS A FFECTED AREA TWO TIMES A DAY NEEDED FOR PAIN AND INFLAMMATION. DO NOT EXCEED 16GM DAILY TO ANY AFFECTED JOINT OF LOWER EXTREMITIES. DO NOT EXCEED 8GM DAILY TO ANY AFFECTED JOINT OF UPPER EXTREMITES. DO NOT EXCEED TOTAL DOSE OF 32GM DAILY FOR ALL JOINTS. 100 Jan 17, 2019 [id number] Dec 20, 2018 PAMELA RAMSEY [facility] FLUTICASONE PROPIONATE 50MCG/SPRAY SOLN,NASAL,16GM Active INSTILL 1 SPRAY IN EACH NOSTRIL ONCE A DAY SHAKE GENTLY BEFORE USE! - MUST BE USED DIRECTED FOR 3 WEEKS TO PROVIDE BENEFIT. * NO EARLY REFILLS * 1UNIT = 30DAYS AT 4 PF/DAY OR 60DAYS AT 2PF/DAY 2 Dec 19, 2019 [id number] August 26, 2019 PAMELA RAMSEY KETOTIFEN 0.025% SOLN,OPH Active INSTILL 1 DROP IN BOTH EYES TWO TIMES A DAY FOR RELIEF OF ALLERGY SYMPTOMS IN EYE(S) Feb 01, 2020 [id number] September 04, 2019 [facility] LANCET,SOFTCLIX Active USE LANCET BIW FOR TESTING BL OOD GLUCOSE DIRECTED 100 Sep 29, 2020 [id number] Sep 30, 2019 MAURICIO RANKIN [facility] LANCET,SOFTCLIX Discontinued USE LANCET BIW FO R TESTING BLOOD GLUCOSE DIRECTED 100 Dec 19, 2019 [id number] Jun 06, 2019 PAMELA RAMSEY LANCET,SOFTCLIX Discontinued USE LANCET BIW FO R TESTING BLOOD GLUCOSE DIRECTED 100 Jul 25, 2019 [id number] Nov 12, 2018 PAMELA RAMSEY LISINOPRIL 40MG TAB Non- VA TAKE ONE-HALF TABLET BY MOUTH EVERY MORNING Non-VA Documented by: PAMELA RAMSEY nted at: [facility] LORATADINE/PSEUDOEPHEDRINE TAB,SA Non-VA TAKE BY MOUTH No n-VA Documented by: JUAN LANGume nted at: [facility] BLAS [facility] MAGNESIUM OXIDE 400MG TAB Non-VA TAKE ONE [...] ACID (REPLACES ACIPHEX) 180 Dec 19, 2019 [id number] August 26, 2019 PAMELA RAMSEY POLYETHYLENE GLYCOL [...] Non-VA Documented by: KATHERINE MATT nted at: [facility] PREGABALIN 150MG CAP,ORAL Non-VA TAKE 1 CAPSULE BY MOUTH TWO TIMES A DAY Non-VA Docume nted by: PAMELA RAMSEY nted at: [facility] SEMAGLUTIDE INJ,SOLN Non -VA INJECT SUBCUTANEOUSLY EVERY WEEK Non-VA Documented by: ANAYELI KIRKPATRICK nted at: ARTUR BLAS [facility] TERBINAFINE HCL 1% CREAM,TOP Active APPLY LIGHT LY TO AFFECTED AREA TWO TIMES A DAY FOR INFECTION 90 Sep 23, 2020 [id number] Sep 24, 2019 ADRIEL HERNANDEZ UREA 20% CREAM,TOP Active APPLY LIGHTLY (20%) TO AFFECTED AREA TWO TIMES A DAY NEEDED TO PROMOTE HEALING,RUB IN UNTIL COMPLETELY ABSORBED*FOR TOPICAL USE ONLY* APPLY TO BOTH FEET DIRECTED. 90 Sep 25, 2020 [id number] Sep 26, 2019 ADRIEL HERNANDEZ Problems (Conditions): [...] Alcohol intake above recommended sensible limits Active 891367637 PADMA LONG [facility] Allergic conjunctivitis Active 020180907 [facility] Bilateral senile combined form cataracts of eyes Active [id number] 9108 [facility] Bilateral tinnitus Active 3854604833740 CHASTITY JEAN [facility] Coronary arteriosclerosis Active 63970877 September 08, 2014 Entered By: PADMA LONG Comment: hx of ptca to RCA several yrs. agoSeptember 08, 2014 Entered By: PADMA LONG Comment: heart cath 09/01/14, neg. / previous stent to RCA,, [place] HATCHER, JENNEY R ROBERT [facility] Diabetes mellitus Active 96351477 PAMELA RAMSEY [facility] Disorder of pancreas Active 6167742 September 08, 2014 Entered By: PADMA LONG Comment: 2.5cm low density lseion in bodyMay 2014 Entered By: PADMA LONG Comment: question of communication with pancreatic ductMay 2014 Entered By: PADMA LONG Comment: favored to be cystic pancreatic cancerMay 2014 Entered By: PADMA LONG Comment: per abdominal CT 09/01/14, [place] PADMA LONG [facility] Dry eyes Active 349349665 NEDA SHAW [facility] Gastro-esophageal reflux disease without esophagitis ( SNOMED CT 425098070) Active 474747724 ALF GUEVARA [facility] History of malignant neoplasm of lung Active 684115758 CHAPO BARRETO [facility] Hyperlipidemia (SNOMED CT 59825987) Active 88575941 PAMELA RAMSEY [facility] Lung mass Active 286715130 September 08, 2014 E ntered By: PADMA LONG Comment: 4.5 cm mass, post. segment right upper lobe.September 08, 2014 Entered By: PADMA LONG Comment: mild adenopathy in mediastinum and bilat. hilaMay 2014 Entered By: PADMA LONG Comment: most likely related to lung cancerMay 2014 Entered By: PADMA LONG Comment: per ct angio of chest with contrast 09/01/14,[place] Entered By: PADMA LONG Comment: per path report- mod. differentiated bronchogenic adenoca. 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 Active 96726797 KATHERINE MATT [facility] Obesity Active 113771555 [facility] Obstructive sleep apnea syndrome (SNOMED CT 76807935) Active 871545 015 [facility] Pancreatic cyst Active 95797012 JAYLENE GUEVARA [facility] Papilloma of right eyelid Active [id number] NEDA SHAW [facility] Polyp of colon Active 32309746 Jan 23 Entered By: PADMA LONG Comment: c-scope 01/17/16, multiple benign colonic polypsMar 2017 Entered By: PADMA LONG Comment: c-scope,06/25/17,[facility], three benign polyps- sigmoid colon, transverse colon,cecum. see path report cprs SHARRON TORRES [facility] Pulmonary emphysema Active 57186443 0 BRIANA GAVIN [facility] Sensorineural hearing loss, bilateral Active 893065725 TEDCHASTITY Nicol [facility] Snoring Active 00581631 [facility] Type 2 diabetes mellitus without complication Active 925051523 LIS[place]TE SHAWA Luda [facility] Environmental Allergies (ICD-9-CM [...] 2007 [facility] Stye * (ICD-9-CM 373.11) Inactive 373.11 Dec 18, 8 Jan 18, 2007 Entered By: PADMA LONG Comment: bilat lower lids, chronic/recurrent PADMA LONG [facility] Tobacco Use Disorder, Continuous Inactive 305.1 Dec 18, 2017 Jan 18, 2007 Entered By: PADMA LONG Comment: one ppd PADMA LONG [facility] Radiology Reports: +/- 30 days of the encounter No Data Provided for This Section Pathology Reports: +/- 30 days of the encounter No Data Provided for This Section Encounter Notes: All associated encounter notes This section contains the clinical notes associated to the Encounter. Date/Time Encounter Note(s) Provider Source Dec 05, 2018 03:38 PM CARE COORDINATION HOME [facility] NOTE: LOCAL TITLE: HT NOTE STANDARD TITLE: CARE COORDINATION HOME TELEHEALTH NOTE DATE OF NOTE: DEC 05, 2018@15:38 ENTRY DATE: DEC 05, 2018@15:38:49 AUTHOR: KALA JONES COSIGNER: URGENCY: STATUS: COMPLETED reached out to dr. arabella miller office. spoke to staff about need for ERMA to be faxed to [facility]. staffer voices will fax ERMA to [facility] beginning of next week. contacted and encouraged to f/u w/ dr. miller's office w/ regarding to following: Secondary Authorization Request [facility] phone number is [phone] and fax is [phone] /es/ KALA JONES RN, BSN Signed: 12/05/2018 15:44 Receipt Acknowledged By: 12/05/2018 15:50 /gisell/ SHANIQUA DOMINGUEZ RN 12/05/2018 15:49 /es/ KALA GARCIA [facility]
[2019-12-02 07:42] LABS: ALBUMIN 4.1 GM/DL (3.2-4.5); POTASSIUM 4.4 MMOL/L (3.6-5.0)
[2019-12-02 07:43] LABS: CALCIUM 9.4 MG/DL (8.5-10.1)
[2019-12-02 07:45] LABS: TOTAL PROTEIN 7.4 GM/DL (6.4-8.2)
[2019-12-02 07:47] LABS: BILIRUBIN,TOTAL 0.4 MG/DL (0.1-1.0)
[2019-12-02 07:48] LABS: CREATININE SERUM 1.36 MG/DL (0.60-1.30)
[2019-12-02 07:49] LABS: PROTHROMBIN TIME PATIENT 13.9 SEC (12.2-14.7)
--- OUTSIDE RECORDS SUMMARY | 2019-12-02 07:51 | XMS REPORT | Encounter Summary ---
Author Author Department of [facility] Aff HERBERTH kline Organization Department of [facility] Affai Address [address] [place] [address] Phone Unavailable Care Team Providers Care Manager Union Name Role Phone ADRIEL HERNANDEZ PCP Unavailable Insurance Providers: All historical and current No Data Provided for This Section Selected Encounter This section includes the information on record at [place] for the Encounter. Date/Time Encounter Type Encounter Description Reason Provider Source Nov 19, 2019 04:31 PM Outpatient Encounter COMMUNITY CARE CONSULT RIO RAMIREZ JR [facility] IHE Encounter Template Text not used by [place] Assessments - Encounter Diagnoses No Data Provided [...] appointme nts. The data comes from all [place] treatment facilities. Appointment Date/Time Appointment Type Appointment Facili ty Name Dec 31, 2019 11:00 AM AMBULATORY - NONE ARTUR CARRASQUILLO C Dec 31, 2019 01:15 PM AMBULATORY - MEDICINE ARTUR BLAS V [facility] Dec 31, 2019 01:16 PM AMBULATORY - MEDICINE ARTUR BLAS V [facility] Jan 01, 2020 09:00 AM AMBULATORY - MEDICINE ARTUR BLAS V [facility] Jan 07, 2020 12:00 PM AMBULATORY - MEDICINE [facility] Jan 27, 2020 01:00 PM AMBULATORY - MEDICINE MARLENE KEYS V [facility] Mar 31, 2020 09:30 AM AMBULATORY - MEDICINE [facility] Mar 31, 2020 09:31 AM AMBULATORY - MEDICINE ARTUR BLAS [facility] Mar 31, 2020 10:00 AM AMBULATORY - MEDICINE [facility] Mar 31, 2020 10:01 AM AMBULATORY - MEDICINE ARTUR BLAS [facility] Apr 07, 2020 08:00 AM AMBULATORY - NONE [facility] Active, Pending, and Scheduled Orders This section [...] the Encounter. The data comes from all [place] treatment facilities. Test Date/Time Test Type Test Details Facility Name Nov 17, 2019 07:23 AM Consult Order [facility] [id number] Cons Nursing Home Assistant Administrator's [facility] Dec 15, 2019 12:00 AM Laboratory - Chemistry Order CREATININ E (INCLUDES EGFR) GREEN TOP TUBE PLASMA SP [facility] Dec 31, 2019 12:00 AM Laboratory - Chemistry Order CBC & DIF F 5 ML LAVENDER TOP BLOOD SP [facility] Dec 31, 2019 11:00 AM Imaging - CT Scan Order CT CHEST/THORA X W/CONT hx lung cancer [facility] Dec 31, 2019 11:00 AM Imaging - CT Scan Order CT ABD & PELV W/CONTRAST hx lung cancer [facility] Surgical Procedures: All associated to [...] patient. The data comes from a ll [place] treatment facilities. It does not list Allergies/ADRs that were removed or entered in error. Some allergies/ADRs may be reported in t he Immunization section. Allergen Event Date Event Type Reaction(s) Severity Source BR[place] September 08, 2014 Propensity to adverse reactions to drug (diso rder) [facility] 15 [place] September 08, 2014 Propensity to adverse reactions to drug (diso rder) [facility] 15 Medications: VA dispensed (-15 months) and Non-VA Documented (Obtained Outside V A) Section Date Range: 1) prescriptions processed by a VA pharmacy in the last [address] [facility], and 2) all medications recorded in the [place] medical record as "non-VA medic ations". Pharmacy terms refer to [place] pharmacy's work on prescriptions. VA patient s are advised to take their medications as instructed by their health care team. The data comes from all [place] treatment facilities. Glossary of Pharmacy Terms:Active = A prescription that can be filled at the local [place] pharmacy.Active: On Hold = An active prescription [...] TEST BLOOD GLUCOSE 50 Dec 19, 2019 [id number] September 04, 2019 PAMELA RAMSEY ACCU-CHEK CHARLES PLUS (GLUCOSE) TEST STRIP Discontinued USE 1 STRIP FOR TESTING TWO TIMES PER WEEK - DIRECTED TO TEST BLOOD GLUCOSE 50 Jul 25, 2019 [id number] Nov 12, 2018 PAMELA RAMSEY ALBUTEROL SO4 90MCG/ACTUAT (CFC-F) INHL,ORAL,6.7GM Active INHALE 2 PUFFS BY ORAL INHALATION EVERY 4 HOURS NEEDED FOR BREATHING. SHAKE WELL. RINSE MOUTHPIECE FREQUENTLY TO PREVENT CLOGGING. USE NEEDED FOR SHORTNESS OF AIR/WHEEZING FOR BREATHING. SHAKE WELL. RINSE MOUTHPIECE FREQUENTLY TO PREVENT CLOGGING. USE NEEDED FOR SHORTNESS OF AIR/WHEEZING 1 Dec 19, 2019 [id number] September 04, 2019 PAMELA RAMSEY CBGUILLERMO ALCOHOL PREP PAD Active USE 1 PAD ON SKIN BIW TO CLEAN AND DISINFECT THE SKIN 200 Sep 29, 2020 [id number] Sep 30, 2019 PAMELLA RANKINLloyd [facility] ALCOHOL PREP PAD Discontinued USE 1 PAD ON SKIN BI W TO CLEAN AND DISINFECT THE SKIN 200 Dec 19, 2019 [id number] Jun 06, 2019 PAMELA RAMSEY CBGUILLERMO ALCOHOL PREP PAD Discontinued USE 1 PAD ON SKIN BI W TO CLEAN AND DISINFECT THE SKIN 200 Jul 25, 2019 [id number] Nov 12, 2018 PAMELA RAMSEY ASCORBIC ACID 250MG TAB Non-VA TAKE ONE TABLET BY MOUTH ONCE A DAY Non-VA Documented by: SHANIQUA SCHMIDT nted at: [facility] ASPIRIN 25MG/DIPYRIDAMOLE 200MG CAP,SA Active T CHAPIN 1 CAPSULE BY MOUTH TWO TIMES A DAY - SWALLOW WHOLE. DO NOT CRUSH OR CHEW. FOR RECURRENT TIA/STROKE 180 Dec 19, 2019 [id number] Dec 20, 2018 [facility]A RAMSE[facility] ASPIRIN 25MG/DIPYRIDAMOLE 200MG CAP,SA Discontinued T CHAPIN 1 CAPSULE BY MOUTH TWO TIMES A DAY - SWALLOW WHOLE. DO NOT CRUSH OR CHEW. FOR RECURRENT TIA/STROKE 180 Feb 06, 2019 [id number] Sep 28, 2018 ZACHARY [facility] ASPIRIN 81MG TAB,EC Non- [place] TAKE ONE TABLET BY MOUTH ONCE A DAY Non-VA Documented by: PADMA LONG nted at: [facility] ATORVASTATIN CA 80MG TAB Active TAKE ONE TABLET BY MOUTH AT BEDTIME FOR CHOLESTEROL - REPORT ANY UNEXPLAINED MUSCLE PAIN/WEAKNESS TO YOUR PROVIDER 90 Dec 19, 2019 [id number] September 04, 2019 PAMELA RAMSEY ATORVASTATIN CA 80MG TAB Discontinued TAKE ONE TABLET BY MOUTH AT BEDTIME FOR CHOLESTEROL - REPORT ANY UNEXPLAINED MUSCLE PAIN/WEAKNESS TO YOUR PROVIDER 90 Dec 20, 2018 [id number] Nov 12, 2018 PAMELA RAMSEY BUDESONIDE 160MCG/FORMOTEROL FUM 4.5MCG/SPRAY INHL,ORAL,10.2 GM Active INHALE 2 PUFFS BY MOUTH TWO TIMES A DAY FOR BREATHING. SHAKE WELL. RINSE MOUTH AND SPIT AFTER EACH USE. 3 Apr 24, 2020 [id number] August 22, 2019 LISSA OATES [facility] CALCIUM/VITAMIN D TAB No n-VA TAKE BY MOUTH ONCE A DAY Non-V A Documented by: PADMA LONG nted at: [facility] CARBOXYMETHYLCELLULOSE NA 0.5% SOLN,OPH Active INSTILL ONE DROP IN BOTH EYES FOUR TIMES A DAY FOR DRY EYES 15 Feb 01, 2020 [id number] September 03 0 NEDA SHAW [facility] DICLOFENAC NA 1% GEL,TOP Discontinued APPLY 2 GRAMS A FFECTED AREA TWO TIMES A DAY NEEDED FOR PAIN AND INFLAMMATION. DO NOT EXCEED 16GM DAILY TO ANY AFFECTED JOINT OF LOWER EXTREMITIES. DO NOT EXCEED 8GM DAILY TO ANY AFFECTED JOINT OF UPPER EXTREMITES. DO NOT EXCEED TOTAL DOSE OF 32GM DAILY FOR ALL JOINTS. 100 Oct 31, 2018 [id number] Oct 06, 2018 ANAYELI KIRKPATRICK [facility] DICLOFENAC NA 1% GEL,TOP APPLY 2 GRAMS A FFECTED AREA TWO TIMES A DAY NEEDED FOR PAIN AND INFLAMMATION. DO NOT EXCEED 16GM DAILY TO ANY AFFECTED JOINT OF LOWER EXTREMITIES. DO NOT EXCEED 8GM DAILY TO ANY AFFECTED JOINT OF UPPER EXTREMITES. DO NOT EXCEED TOTAL DOSE OF 32GM DAILY FOR ALL JOINTS. 100 Jan 17, 2019 [id number] Dec 20, 2018 PAMELA RAMSEY FLUTICASONE PROPIONATE 50MCG/SPRAY SOLN,NASAL,16GM Active INSTILL 1 SPRAY IN EACH NOSTRIL ONCE A DAY SHAKE GENTLY BEFORE USE! - MUST BE USED DIRECTED FOR 3 WEEKS TO PROVIDE BENEFIT. * NO EARLY REFILLS * 1UNIT = 30DAYS AT 4 PF/DAY OR 60DAYS AT 2PF/DAY 2 Dec 19, 2019 [id number] August 26, 2019 PAMELA RAMSEY KETOTIFEN 0.025% SOLN,OPH Active INSTILL 1 DROP IN BOTH EYES TWO TIMES A DAY FOR RELIEF OF ALLERGY SYMPTOMS IN EYE(S) Feb 01, 2020 [id number] September 04, 2019 NEDA SHAW [facility] LANCET,SOFTCLIX Active USE LANCET BIW FOR TESTING BL OOD GLUCOSE DIRECTED Sep 29, 2020 [id number] Sep 30, 2019 [facility] LANCET,SOFTCLIX Discontinued USE LANCET BIW FO R TESTING BLOOD GLUCOSE DIRECTED Dec 19, 2019 [id number] Jun 06, 2019 [facility] RAM[facility] LANCET,SOFTCLIX Discontinued USE LANCET BIW FO R TESTING BLOOD GLUCOSE DIRECTED Jul 25, 2019 [id number] Nov 12, 2018 PAMELA RAMSEY LISINOPRIL 40MG TAB Non- [place] TAKE ONE-HALF TABLET BY MOUTH EVERY MORNING Non-VA Documented by: PAMELA RAMSEY nted at: [facility] LORATADINE/PSEUDOEPHEDRINE TAB,SA Non-VA TAKE BY MOUTH No n-VA Documented by: JUAN LANG nted at: ARTUR BLAS [facility] MAGNESIUM OXIDE 400MG TAB Non-VA TAKE [...] ACID (REPLACES ACIPHEX) 180 Dec 19, 2019 [id number] August 26, 2019 PAMELA RAMSEY POLYETHYLENE GLYCOL [...] Documented by: KATHERINE MATT Docume nted at: [facility] PREGABALIN 150MG CAP,ORAL Non-VA TAKE 1 CAPSULE BY MOUTH TWO TIMES A DAY Non-VA Docume nted by: PAMELA RAMSEY Docume nted at: [facility] SEMAGLUTIDE INJ,SOLN Non -VA INJECT SUBCUTANEOUSLY EVERY WEEK Non-VA Documented by: ANAYELI KIRKPATRICK Docume nted at: [facility] TERBINAFINE HCL 1% CREAM,TOP Active APPLY LIGHT LY TO AFFECTED AREA TWO TIMES A DAY FOR INFECTION 90 Sep 23, 2020 [id number] Sep 24, 2019 ADRIEL HERNANDEZ UREA 20% CREAM,TOP Active APPLY LIGHTLY (20%) TO AFFECTED AREA TWO TIMES A DAY NEEDED TO PROMOTE HEALING,RUB IN UNTIL COMPLETELY ABSORBED*FOR TOPICAL USE ONLY* APPLY TO BOTH FEET DIRECTED. 90 Sep 25, 2020 [id number] Sep 26, 2019 ADRIEL HERNANDEZ Problems (Conditions): [...] Alcohol intake above recommended sensible limits Active 467225617 PADMA LONG [facility] Allergic conjunctivitis Active 015934997 [facility]DA [facility] Bilateral senile combined form cataracts of eyes Active 42278846459 9108 COLINNEDA [facility] Bilateral tinnitus Active 3119177038395 CHASTITY JEAN ARTUR [facility] Coronary arteriosclerosis Active 68322385 September 08, 2014 Entered By: PADMA LONG Comment: hx of ptca to RCA several yrs. agoSeptember 08, 2014 Entered By: PADMA LONG Comment: heart cath 09/01/14, neg. / previous stent to RCA,, via abida meneses ks HATCHER, JENNEY R [facility] Diabetes mellitus Active 50868993 PAMELA RAMSEY [facility] Disorder of pancreas Active 0831511 September 08, 2014 Entered By: PADMA LONG Comment: 2.5cm low density lseion in bodyMay 2014 Entered By: PADMA LONG Comment: question of communication with pancreatic ductMay 2014 Entered By: PADMA LONG Comment: favored to be cystic pancreatic cancerMay 2014 Entered By: PADMA LONG Comment: per abdominal CT 09/01/14, via abida meneses,PADMA Pradhan [facility] Dry eyes Active 954262041 NEDA SHAW [facility] Gastro-esophageal reflux disease without esophagitis ( SNOMED CT 109237640) Active 896627848 ALF GUEVARA [facility] History of malignant neoplasm of lung Active 812764664 CHAPO BARRETO [facility] Hyperlipidemia (SNOMED CT 73619756) Active 92899213 PAMELA RAMSEY [facility] Lung mass Active 365546907 September 08, 2014 E ntered By: PADMA [...] uncertain behavior of skin of eyelid Active 99149556 KATHERINE MATT [facility] Obesity Active 690365209 [facility] Obstructive sleep apnea syndrome (SNOMED CT 76401609) Active 545203 015 PHILIPPE DOUGLASS [facility] Pancreatic cyst Active 91247564 JAYLENE GUEVARA [facility] Papilloma of right eyelid Active 151196458421125 NEDA SHAW [facility] Polyp of colon Active 94859381 Jan 23 Entered By: PADMA LONG Comment: c-scope 01/17/16, multiple benign colonic polypsJun 28, 2017 Entered By: PADMA LONG Comment: c-scope,06/25/17,[facility], three benign polyps- sigmoid colon, transverse colon,cecum. see path report cprs SHARRON TORRES [facility] Pulmonary emphysema Active 12176010 0 BRIANA GAVIN [facility] Sensorineural hearing loss, bilateral Active 439465136 CHASTITY JEAN [facility] Snoring Active 77845805 SONG BULLOCK [facility] Type 2 diabetes mellitus without complication Active 710466276 NEDA SHAW [facility] Environmental Allergies (ICD-9-CM 477.9) Inactive 477.9 Dec 18, 2017 PADMA LONG [facility] External hemorrhoids without mention of complication (ICD-9- CM 455.3) Inactive 455.3 Dec 18, 2017 PADMA LONG [facility] Impotence of organic origin (ICD-9-CM 607.84) Inactive 607.84 Dec 18, 2017 PADMA LONG [facility] Screening for Lipoid disorders (ICD-9-CM V77.91) Inactive V77.91 Jan 18, 2007 PADMA LONG [facility] Stye * (ICD-9-CM 373.11) Inactive 373.11 Dec 18, 201 8 Jan 18, 2007 Entered By: PADMA LONG Comment: bilat lower lids, chronic/recurrent PADMA LONG [facility] Tobacco Use Disorder, Continuous Inactive 305.1 Dec 18, 2017 Jan 18, 2007 Entered By: PADMA LONG Comment: one ppd PADMA LONG [facility] Radiology Reports: +/- 30 days of the encounter No Data Provided for This Section Pathology Reports: +/- 30 days of the encounter No Data Provided for This Section Encounter Notes: All associated encounter notes This section contains the clinical notes associated to the Encounter. Date/Time Encounter Note(s) Provider Source Nov 19, 2019 04:31 PM NONVA NOTE: LOCAL TITLE: COMMUNITY CARE-COORDINATION PLAN STANDARD TITLE: NONVA NOTE DATE OF NOTE: NOV 19, 2019@16:31 ENTRY DATE: NOV 19, 2019@16:31:23 AUTHOR: YANIQUE TANGIGNER: URGENCY: STATUS: COMPLETED COMMUNITY CARE-COORDINATION PLAN Has ADDENDA Drain self-presented to community emergency facility Emergency Notification Intake Date Presenting to the Facility: Oct [facility] Hospital Name: Hospital: [facility] Address: [address] [place] [address] City: [place] State: [place] Zip Code: [address] Chief complaint: DIFFUSELY WEAK, HEAVY, SPEECH DIFFICULTY Primary Diagnosis: Patient Admitted? Yes Route of Admission: Date/Time of Admission: Admitting Diagnosis: DIFFUSELY WEAK, HEAVY, SPEECH DIFFICULTY Community Care Provider: Confirm Level of Care: Community Facility Point of Contact: Name: Phone: ##################################################### Notification ID: [id number] Status: Closed - Approved for 1703 Auth #: [id number] ###################################################### CC UR team RNs for care /gisell/ YANIQUE TANG [facility] Advanced Medical Support Asst Signed: 11/19/2019 16:37 Receipt Acknowledged By: 11/20/2019 08:11 /gisell/ SAMIRA Page OCC UR RN 11/20/2019 ADDENDUM STATUS: COMPLETED Drain self-presented to community emergency facility Is the Drain reporting any Suicidal/Homicidal ideation or self-harming behavior? No IP stay, discharged 11/11/19, OCC UR RN would have followed stay, rec'd signed H&P and signed DC summary . CC PCP and PCP RN for post hospital f/u and consults as needed. Notified PCP identified via JLV of OBS or IP stay and need for follow up via secure email. Correction to admission date: November 09 w/DC date of 11/11/19. /gisell/ SAMIRA LOPEZ OCC UR RN Signed: 11/20/2019 13:49 Receipt Acknowledged By: * AWAITING SIGNATURE * YANIQUE [place]ANG [place] [facility]
--- OUTSIDE RECORDS SUMMARY | 2019-12-02 07:51 | XMS REPORT | Encounter Summary ---
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 Date/Time Encounter Type Encounter Description Reason Provider Source Nov 11, 2019 12:00 AM Outpatient Encounter COMMUNITY CARE CONSULT [facility] IHE Encounter Template Text not used [...] PM AMBULATORY - MEDICINE ARTUR BLAS V [facility] Dec 31, 2019 01:16 PM AMBULATORY - MEDICINE ARTUR BLAS V [facility] Jan 01, 2020 09:00 AM AMBULATORY - MEDICINE ARTUR BLAS V [facility] Jan 07, 2020 12:00 PM AMBULATORY - MEDICINE [facility] Jan 27, 2020 01:00 PM AMBULATORY - MEDICINE MARLENE KEYS V [facility] Mar 31, 2020 09:30 AM AMBULATORY - MEDICINE [facility] [facility] Mar 31, 2020 09:31 AM AMBULATORY - MEDICINE ARTUR BLAS V [facility] Mar 31, 2020 10:00 AM AMBULATORY - MEDICINE [facility] Mar 31, 2020 10:01 AM AMBULATORY - MEDICINE ARTUR BLAS V [facility] Apr 07, 2020 08:00 AM AMBULATORY - NONE [place] [facility] Active, Pending, and Scheduled Orders This [...] the Encounter. The data comes from all [facility]. Test Date/Time Test Type Test Details Facility Name Nov 17, 2019 07:23 AM Consult Order [facility] [id number] Cons Gluing Machine Adjuster's Choice [facility] Dec 15, 2019 12:00 AM Laboratory - Chemistry Order CREATININ E (INCLUDES EGFR) GREEN TOP TUBE PLASMA SP [facility] Procedures: All associated to the [...] to adverse reactions to drug (diso rder) [facility] 15 PLAVIX September 08, 2014 Propensity to adverse reactions to drug (diso rder) [facility] 15 Medications: VA dispensed (-15 months) and Non-VA Documented (Obtained Outside V A) Section Date Range: 1) prescriptions processed by a [facility] pharmacy in the last 15 m [facility], and 2) all medications recorded in the [place] medical record as "non-VA medic ations". Pharmacy terms refer to [place] pharmacy's work on prescriptions. VA patient s [...] TEST BLOOD GLUCOSE 50 Dec 19, 2019 [id number] September 04, 2019 PAMELA RAMSEY ACCU-CHEK CHARLES PLUS (GLUCOSE) TEST STRIP Discontinued USE 1 STRIP FOR TESTING TWO TIMES PER WEEK - DIRECTED TO TEST BLOOD GLUCOSE 50 Jul 25, 2019 [id number] Nov 12, 2018 PAMELA RAMSEY ALBUTEROL SO4 90MCG/ACTUAT (CFC-F) INHL,ORAL,6.7GM Active INHALE 2 PUFFS BY ORAL INHALATION EVERY 4 HOURS NEEDED FOR BREATHING. SHAKE WELL. RINSE MOUTHPIECE FREQUENTLY TO PREVENT CLOGGING. USE NEEDED FOR SHORTNESS OF AIR/WHEEZING FOR BREATHING. SHAKE WELL. RINSE MOUTHPIECE FREQUENTLY TO PREVENT CLOGGING. USE NEEDED FOR SHORTNESS OF AIR/WHEEZING 1 Dec 19, 2019 [id number] September 04, 2019 PAMELA RAMSEY ALCOHOL PREP PAD Active USE 1 PAD ON SKIN BIW TO CLEAN AND DISINFECT THE SKIN 200 Sep 29, 2020 [id number] Sep 30, 2019 MAURICIO RANKIN [facility] ALCOHOL PREP PAD Discontinued USE 1 PAD ON SKIN BI W TO CLEAN AND DISINFECT THE SKIN 200 Dec 19, 2019 [id number] Jun 06, 2019 PAMELA RAMSEY ALCOHOL PREP PAD Discontinued USE 1 PAD ON SKIN BI W TO CLEAN AND DISINFECT THE SKIN 200 Jul 25, 2019 [id number] Nov 12, 2018 PAMELA RAMSEY ASCORBIC ACID 250MG TAB Non-VA TAKE ONE TABLET BY MOUTH ONCE A DAY Non-VA Documented by: SHANIQUA SCHMIDT nted at: [facility] ASPIRIN 25MG/DIPYRIDAMOLE 200MG CAP,SA Active T CHAPIN 1 CAPSULE BY MOUTH TWO TIMES A DAY - SWALLOW WHOLE. DO NOT CRUSH OR CHEW. FOR RECURRENT TIA/STROKE 180 Dec 19, 2019 [id number] Dec 20, 2018 PAMELA RAMSEY ASPIRIN 25MG/DIPYRIDAMOLE 200MG CAP,SA Discontinued T CHAPIN 1 CAPSULE BY MOUTH TWO TIMES A DAY - SWALLOW WHOLE. DO NOT CRUSH OR CHEW. FOR RECURRENT TIA/STROKE 180 Feb 06, 2019 [id number] Sep 28, 2018 ZACHARY GRECO ASPIRIN 81MG TAB,EC Non- VA TAKE ONE TABLET BY MOUTH ONCE A DAY Non-VA Documented by: PADMA LONG nted at: [facility] ATORVASTATIN CA 80MG TAB Active TAKE ONE TABLET BY MOUTH AT BEDTIME FOR CHOLESTEROL - REPORT ANY UNEXPLAINED MUSCLE PAIN/WEAKNESS TO YOUR PROVIDER 90 Dec 19, 2019 [id number] September 04, 2019 PAMELA RAMSEY ATORVASTATIN CA 80MG TAB Discontinued TAKE ONE TABLET BY MOUTH AT BEDTIME FOR CHOLESTEROL - REPORT ANY UNEXPLAINED MUSCLE PAIN/WEAKNESS TO YOUR PROVIDER 90 Dec 20, 2018 [id number] Nov 12, 2018 PAMELA RAMSEY BUDESONIDE 160MCG/FORMOTEROL FUM 4.5MCG/SPRAY INHL,ORAL,10.2 GM Active INHALE 2 PUFFS BY MOUTH TWO TIMES A DAY FOR BREATHING. SHAKE WELL. RINSE MOUTH AND SPIT AFTER EACH USE. 3 Apr 24, 2020 [id number] August 22, 2019 [facility] CALCIUM/VITAMIN D TAB No n-VA TAKE BY MOUTH ONCE A DAY Non-V A Documented by: PADMA LONG nted at: [facility] CARBOXYMETHYLCELLULOSE NA 0.5% SOLN,OPH Active INSTILL ONE DROP IN BOTH EYES FOUR TIMES A DAY FOR DRY EYES 15 Feb 01, 2020 [id number] September 03 0 [facility] [...] FOR ALL JOINTS. 100 Oct 31, 2018 [id number] Oct 06, [address] DICLOFENAC NA 1% GEL,TOP APPLY 2 GRAMS A FFECTED AREA TWO TIMES A DAY NEEDED FOR PAIN AND INFLAMMATION. DO NOT EXCEED 16GM DAILY TO ANY AFFECTED JOINT OF LOWER EXTREMITIES. DO NOT EXCEED 8GM DAILY TO ANY AFFECTED JOINT OF UPPER EXTREMITES. DO NOT EXCEED TOTAL DOSE OF 32GM DAILY FOR ALL JOINTS. 100 Jan 17, 2019 [id number] Dec 20, 2018 PAMELA RAMSEY FLUTICASONE PROPIONATE 50MCG/SPRAY SOLN,NASAL,16GM Active INSTILL 1 SPRAY IN EACH NOSTRIL ONCE A DAY SHAKE GENTLY BEFORE USE! - MUST BE USED DIRECTED FOR 3 WEEKS TO PROVIDE BENEFIT. * NO EARLY REFILLS * 1UNIT = 30DAYS AT 4 PF/DAY OR 60DAYS AT 2PF/DAY 2 Dec 19, 2019 [id number] August 26, 2019 PAMELA RAMSEY KETOTIFEN 0.025% SOLN,OPH Active INSTILL 1 DROP IN BOTH EYES TWO TIMES A DAY FOR RELIEF OF ALLERGY SYMPTOMS IN EYE(S) 10 Feb 01, 2020 [id number] September 04, 2019 [facility] LANCET,SOFTCLIX Active USE LANCET BIW FOR TESTING BL OOD GLUCOSE DIRECTED 100 Sep 29, 2020 [id number] Sep 30, 2019 MAURICIO RANKIN [facility] LANCET,SOFTCLIX Discontinued USE LANCET BIW FO R TESTING BLOOD GLUCOSE DIRECTED 100 Dec 19, 2019 [id number] Jun 06, 2019 PAMELA RAMSEY LANCET,SOFTCLIX Discontinued USE LANCET BIW FO R TESTING BLOOD GLUCOSE DIRECTED 100 Jul 25, 2019 [id number] Nov 12, 2018 PAMELA RAMSEY LISINOPRIL 40MG TAB Non- VA TAKE ONE-HALF TABLET BY MOUTH EVERY MORNING Non-VA Documented by: PAMELA RAMSEY nted at: [facility] LORATADINE/PSEUDOEPHEDRINE TAB,SA Non-VA TAKE BY MOUTH No n-VA Documented by: JUAN LANG nted at: ARTUR BLAS [facility] MAGNESIUM OXIDE 400MG TAB Non-VA TAKE [...] ACID (REPLACES ACIPHEX) 180 Dec 19, 2019 [id number] August 26, 2019 PAMELA RAMSEY POLYETHYLENE GLYCOL [...] Documented by: KATHERINE MATT Docume nted at: [facility] PREGABALIN 150MG CAP,ORAL Non-VA TAKE 1 CAPSULE BY MOUTH TWO TIMES A DAY Non-VA Docume nted by: PAMELA RAMSEY Docume nted at: [facility] SEMAGLUTIDE INJ,SOLN Non -VA INJECT SUBCUTANEOUSLY EVERY WEEK Non-VA Documented by: ANAYELI KIRKPATRICK Docume nted at: ARTUR BLAS [facility] TERBINAFINE HCL 1% CREAM,TOP Active APPLY LIGHT LY TO AFFECTED AREA TWO TIMES A DAY FOR INFECTION Sep 23, 2020 [id number] Sep 24, 2019 ADRIEL HERNANDEZ UREA 20% CREAM,TOP Active APPLY LIGHTLY (20%) TO AFFECTED AREA TWO TIMES A DAY NEEDED TO PROMOTE HEALING,RUB IN UNTIL COMPLETELY ABSORBED*FOR TOPICAL USE ONLY* APPLY TO BOTH FEET DIRECTED. 90 Sep 25, 2020 [id number] Sep 26, 2019 ADRIEL HERNANDEZ Problems (Conditions): [...] Alcohol intake above recommended sensible limits Active 353277572 [facility] Allergic conjunctivitis Active 116262637 [facility] Bilateral senile combined form cataracts of eyes Active [id number] 9108 [facility] Bilateral tinnitus Active [id number] [facility]AST[facility] Coronary arteriosclerosis Active 38814363 September 08, 2014 Entered By: PADMA LONG Comment: hx of ptca to RCA several yrs. agoMay 2014 Entered By: PADMA LONG Comment: heart cath 09/01/14, neg. / previous stent to RCA,, via abida meneses ks HATCHER, JENNEY R [facility] Diabetes mellitus Active 51653933 BRAULIOPAMELA TOMAS [facility] Disorder of pancreas Active 5276495 September 08, 2014 Entered By: PADMA LONG Comment: 2.5cm low density lseion in bodyMay 2014 Entered By: PADMA LONG Comment: question of communication with pancreatic ductMay 2014 Entered By: PADMA LONG Comment: favored to be cystic pancreatic cancerMay 2014 Entered By: PADMA LONG Comment: per abdominal CT 09/01/14, via abida meneses ks FRAZIER, JAY J [facility] Dry eyes Active 570709891 [facility]EDA [facility] Gastro-esophageal reflux disease without esophagitis ( SNOMED CT 763205090) Active 242927132 ALF GUEVARA [facility] History of malignant neoplasm of lung Active 894753189 CHAPO BARRETO [facility] Hyperlipidemia (SNOMED CT 52226274) Active 28095113 BRAULIOPAMELA TOMAS [facility] Lung mass Active 364258241 September 08, 2014 E ntered By: PADMA [...] report- mod. differentiated bronchogenic adenoca. 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 Obstructive sleep apnea syndrome (SNOMED CT 05442808) Active 247544 [address] [facility] Pancreatic cyst Active 18783458 [place] [facility] [facility] Papilloma of right eyelid Active [id number] [facility]EDA [facility] Polyp of colon Active 32270130 Jan 23 Entered By: PADMA LONG Comment: c-scope 01/17/16, multiple benign colonic polypsJun 28, 2017 Entered By: PADMA LONG Comment: c-scope,06/25/17,[facility], three benign polyps- sigmoid colon, transverse colon,cecum. see path report cprs SHARRON TORRES [facility] Pulmonary emphysema Active 69342909 [address] [facility] Sensorineural hearing loss, bilateral Active 623836241 SLECHASTITY [facility] Snoring Active 90567894 [facility] Type 2 diabetes mellitus without complication Active 502697651 N[facility]A SHAW [facility] Environmental Allergies (ICD-9-CM 477.9) Inactive 477.9 Dec 18, 2017 [facility] LONG [facility] External hemorrhoids without mention of complication (ICD-9- CM 455.3) Inactive 455.3 Dec 18, 2017 PADMA LONG [facility] Impotence of organic origin (ICD-9-CM 607.84) Inactive 607.84 Dec 18, 2017 [facility] Screening for Lipoid disorders (ICD-9-CM V77.91) Inactive V77.91 Jan 18, 2007 [facility] Stye * (ICD-9-CM 373.11) Inactive 373.11 Dec 18, 201 8 Jan 18, 2007 Entered By: PADMA LONG Comment: bilat lower lids, chronic/recurrent PADMA LONG [facility] Tobacco Use Disorder, Continuous Inactive 305.1 Dec 18, 2017 Jan 18, 2007 Entered By: PADMA LONG Comment: one ppd PADMA LONG [facility] Radiology Reports: +/- 30 days of the encounter No Data Provided for This Section Pathology Reports: +/- 30 days of the encounter No Data Provided for This Section Encounter Notes: All associated encounter notes This section contains the clinical notes associated to the Encounter. Date/Time Encounter Note(s) Provider Source Nov 11, 2019 12:00 AM NONVA NOTE: LOCAL TITLE: COMMUNITY CARE-INPATIENT STANDARD TITLE: NONVA NOTE DATE OF NOTE: NOV 11, 2019 ENTRY DATE: NOV 27, 2019@16:07:43 AUTHOR: KEM MCLAIN EXP COSIGNER: URGENCY: STATUS: COMPLETED VistA Imaging - Scanned Document [facility] 11.11.19 ED VISIT/IP STAY /es/ KEM MCLAIN CLIENT ACCOUNT SPECIALIST Signed: 11/27/2019 16:07 KEM MCLAIN [facility]
--- OUTSIDE RECORDS SUMMARY | 2019-12-02 07:53 | XMS REPORT | Encounter Summary ---
Author [facility] Organization Department of [facility] Address [address] [place] [address] Phone Unavailable Care Team Providers Care Automobile Mechanic Name Role Phone ADRIEL HERNANDEZ PCP Unavailable Insurance Providers: All historical and current No Data Provided for This Section Selected Encounter This section includes the information on record at [place] for the Encounter. Date/Time Encounter Type Encounter Description Reason Provider Source Nov 12, 2019 10:49 AM Outpatient Encounter TELEPHONE PRIMARY CAR E ICD-10-CM Z71.89 Other specified counseling with Provider Comments: Other specified counseling SHANIQUA SCHMIDT [facility] IHE Encounter Template Text not used by [place] Assessments - Encounter Diagnoses This section includes the primary and secondary diag noses documented for the Encounter. Date/Time Primary/Secondary Diagnosis Diagnosis Name Provider Source Nov 12, 2019 10:49 AM PRIMARY Other specified counseling SHANIQUA SCHMIDT [facility] Plan of Treatment: Future Appointments [...] appointme nts. The data comes from all [facility]. Appointment Date/Time Appointment Type Appointment Facili ty Name Dec 31, 2019 11:00 AM AMBULATORY - NONE [facility] Dec 31, 2019 01:15 PM AMBULATORY - MEDICINE [facility] Dec 31, 2019 01:16 PM AMBULATORY - MEDICINE [facility] Jan 01, 2020 09:00 AM AMBULATORY - MEDICINE [facility] Jan 07, 2020 12:00 PM AMBULATORY - MEDICINE [facility] Jan 27, 2020 01:00 PM AMBULATORY - MEDICINE [facility] Mar 31, 2020 09:30 AM AMBULATORY - MEDICINE [facility] Mar 31, 2020 09:31 AM AMBULATORY - MEDICINE [facility] Mar 31, 2020 10:00 AM AMBULATORY - MEDICINE [facility] Mar 31, 2020 10:01 AM AMBULATORY - MEDICINE [facility] Apr 07, 2020 08:00 AM AMBULATORY - NONE [facility] Active, Pending, and Scheduled Orders This section [...] the Encounter. The data comes from all [facility]. Test Date/Time Test Type Test Details Facility Name Nov 17, 2019 07:23 AM Consult Order [facility] [id number] Cons Spare Fixer's Choice [facility] Dec 15, 2019 12:00 AM Laboratory - Chemistry Order CREATININ E (INCLUDES EGFR) GREEN TOP TUBE PLASMA SP [facility] [place] [facility] Surgical Procedures: All associated to the [...] and tobacco- related health factors from the [place] facility where the Encounter took place. Current Smoking Status This section includes the most current smoking, or tobacco -related health factor, from the [place] facility where the Encounter took place. Date/Time Current Smoking Status Comment Facility Nov 23, 2017 09:51 AM TOBACCO USER OFFERED [facility] Tobacco Use History This section includes a history of the smoking, or tobacco -related health factors, that were collected on or before the date of the Encoun ter. The data comes from the [place] facility where the Encounter took place. Date/Time Smoking Status/Tobacco Use Comment Facil ity Nov 23, 2017 09:51 AM CURRENT TOBACCO [...] patient. The data comes from a ll [place] treatment facilities. It does not list Allergies/ADRs that were removed or entered in error. Some allergies/ADRs may be reported in t he Immunization section. Allergen Event Date Event Type Reaction(s) Severity Source [place] September 08, 2014 Propensity to adverse reactions to drug (diso rder) [facility] [place] September 08, 2014 Propensity to adverse reactions to drug (diso rder) [facility] 15 Medications: VA [...] care team. The data comes from all [place] treatment facilities. Glossary of Pharmacy Terms:Active = A prescription that can be filled at the local [facility] pharmacy.Active: On Hold = An active prescription that will not be filled until pharmacy resolves the issue.Active: Susp = An active prescription that is not scheduled to be filled yet.Clinic Order = A medication received during a visit to a [place] clinic or emergency department (currently not available).Discontinued [...] may be a prescription from either the [place] or other providers that was filled outside the [place]. Or, it may be an over the [...] TEST BLOOD GLUCOSE 50 Dec 19, 2019 [id number] September 04, 2019 PAMELA RAMSEY GUILLERMO ACCU-CHEK CHARLES PLUS (GLUCOSE) TEST STRIP Discontinued USE 1 STRIP FOR TESTING TWO TIMES PER WEEK - DIRECTED TO TEST BLOOD GLUCOSE 50 Jul 25, 2019 [id number] Nov 12, 2018 PAMELA RAMSEY [facility] ALBUTEROL SO4 90MCG/ACTUAT (CFC-F) INHL,ORAL,6.7GM Active INHALE 2 PUFFS BY ORAL INHALATION EVERY 4 HOURS NEEDED FOR BREATHING. SHAKE WELL. RINSE MOUTHPIECE FREQUENTLY TO PREVENT CLOGGING. USE NEEDED FOR SHORTNESS OF AIR/WHEEZING FOR BREATHING. SHAKE WELL. RINSE MOUTHPIECE FREQUENTLY TO PREVENT CLOGGING. USE NEEDED FOR SHORTNESS OF AIR/WHEEZING 1 Dec 19, 2019 [id number] September 04, 2019 PAMELA RAMSEY CB ALCOHOL PREP PAD Active USE 1 PAD ON SKIN BIW TO CLEAN AND DISINFECT THE SKIN 200 Sep 29, 2020 [id number] Sep 30, 2019 CHUCHO,[facility]IO [facility] ALCOHOL PREP PAD Discontinued USE 1 PAD ON SKIN BI W TO CLEAN AND DISINFECT THE SKIN 200 Dec 19, 2019 [id number] Jun 06, 2019 PAMELA RAMSEY CB ALCOHOL PREP PAD Discontinued USE 1 PAD ON SKIN BI W TO CLEAN AND DISINFECT THE SKIN 200 Jul 25, 2019 [id number] Nov 12, 2018 PAMELA RAMSEY [facility] ASCORBIC ACID 250MG TAB Non-VA TAKE ONE TABLET BY MOUTH ONCE A DAY Non-VA Documented by: SHANIQUA SCHMIDT nted at: [facility] ASPIRIN 25MG/DIPYRIDAMOLE 200MG CAP,SA Active T CHAPIN 1 CAPSULE BY MOUTH TWO TIMES A DAY - SWALLOW WHOLE. DO NOT CRUSH OR CHEW. FOR RECURRENT TIA/STROKE 180 Dec 19, 2019 [id number] Dec 20, 2018 [facility]EL[facility] RAMSE[facility] ASPIRIN 25MG/DIPYRIDAMOLE 200MG CAP,SA Discontinued T CHAPIN 1 CAPSULE BY MOUTH TWO TIMES A DAY - SWALLOW WHOLE. DO NOT CRUSH OR CHEW. FOR RECURRENT TIA/STROKE 180 Feb 06, 2019 [id number] Sep 28, 2018 ZACHARY [facility]CO [facility] ASPIRIN 81MG TAB,EC Non- [facility] TAKE ONE TABLET BY MOUTH ONCE A DAY Non-VA Documented by: PADMA LONG nted at: [facility] ATORVASTATIN CA 80MG TAB Active TAKE ONE TABLET BY MOUTH AT BEDTIME FOR CHOLESTEROL - REPORT ANY UNEXPLAINED MUSCLE PAIN/WEAKNESS TO YOUR PROVIDER 90 Dec 19, 2019 [id number] September 04, 2019 PAMELA RAMSEY [facility] ATORVASTATIN CA 80MG TAB Discontinued TAKE ONE TABLET BY MOUTH AT BEDTIME FOR CHOLESTEROL - REPORT ANY UNEXPLAINED MUSCLE PAIN/WEAKNESS TO YOUR PROVIDER 90 Dec 20, 2018 [id number] Nov 12, 2018 PAMELA RAMSEY [facility] BUDESONIDE 160MCG/FORMOTEROL FUM 4.5MCG/SPRAY INHL,ORAL,10.2 GM Active INHALE 2 PUFFS BY MOUTH TWO TIMES A DAY FOR BREATHING. SHAKE WELL. RINSE MOUTH AND SPIT AFTER EACH USE. 3 Apr 24, 2020 [id number] August 22, 2019 LISSA OATES [facility] CALCIUM/VITAMIN D TAB No n-VA TAKE BY MOUTH ONCE A DAY Non-V A Documented by: PADMA LONG nted at: [facility] CARBOXYMETHYLCELLULOSE NA 0.5% SOLN,OPH Active INSTILL ONE DROP IN BOTH EYES FOUR TIMES A DAY FOR DRY EYES 15 Feb 01, 2020 [id number] September 03 0 [facility] DICLOFENAC NA 1% GEL,TOP Discontinued APPLY 2 GRAMS A FFECTED AREA TWO TIMES A DAY NEEDED FOR PAIN AND INFLAMMATION. DO NOT EXCEED 16GM DAILY TO ANY AFFECTED JOINT OF LOWER EXTREMITIES. DO NOT EXCEED 8GM DAILY TO ANY AFFECTED JOINT OF UPPER EXTREMITES. DO NOT EXCEED TOTAL DOSE OF 32GM DAILY FOR ALL JOINTS. 100 Oct 31, 2018 [id number] Oct 06, 2018 ANAYELI KIRKPATRICK [facility] DICLOFENAC NA 1% GEL,TOP APPLY 2 GRAMS A FFECTED AREA TWO TIMES A DAY NEEDED FOR PAIN AND INFLAMMATION. DO NOT EXCEED 16GM DAILY TO ANY AFFECTED JOINT OF LOWER EXTREMITIES. DO NOT EXCEED 8GM DAILY TO ANY AFFECTED JOINT OF UPPER EXTREMITES. DO NOT EXCEED TOTAL DOSE OF 32GM DAILY FOR ALL JOINTS. 100 Jan 17, 2019 [id number] Dec 20, 2018 PAMELA RAMSEY FLUTICASONE PROPIONATE 50MCG/SPRAY SOLN,NASAL,16GM Active INSTILL 1 SPRAY IN EACH NOSTRIL ONCE A DAY SHAKE GENTLY BEFORE USE! - MUST BE USED DIRECTED FOR 3 WEEKS TO PROVIDE BENEFIT. * NO EARLY REFILLS * 1UNIT = 30DAYS AT 4 PF/DAY OR 60DAYS AT 2PF/DAY 2 Dec 19, 2019 [id number] August 26, 2019 PAMELA RAMSEY KETOTIFEN 0.025% SOLN,OPH Active INSTILL 1 DROP IN BOTH EYES TWO TIMES A DAY FOR RELIEF OF ALLERGY SYMPTOMS IN EYE(S) Feb 01, 2020 [id number] September 04, 2019 [facility] LANCET,SOFTCLIX Active USE LANCET BIW FOR TESTING BL OOD GLUCOSE DIRECTED Sep 29, 2020 [id number] Sep 30, 2019 MAURICIO RANKIN LANCET,SOFTCLIX Discontinued USE LANCET BIW FO R TESTING BLOOD GLUCOSE DIRECTED Dec 19, 2019 [id number] Jun 06, 2019 [facility] LANCET,SOFTCLIX Discontinued USE LANCET BIW FO R TESTING BLOOD GLUCOSE DIRECTED 100 Jul 25, 2019 [id number] Nov 12, 2018 PAMELA RAMSEY LISINOPRIL 40MG TAB Non- [place] TAKE ONE-HALF TABLET BY MOUTH EVERY MORNING Non-VA Documented by: PAMELA RAMSEY nted at: [facility] LORATADINE/PSEUDOEPHEDRINE TAB,SA Non-VA TAKE BY MOUTH No n-VA Documented by: JUAN LANG Docume nted at: [facility] MAGNESIUM OXIDE 400MG TAB Non-VA TAKE [...] ACID (REPLACES ACIPHEX) 180 Dec 19, 2019 [id number] August 26, 2019 PAMELA RAMSEY POLYETHYLENE GLYCOL [...] Non-VA Documented by: KATHERINE MATT nted at: [facility] PREGABALIN 150MG CAP,ORAL Non-VA TAKE 1 CAPSULE BY MOUTH TWO TIMES A DAY Non-VA Docume nted by: PAMELA RAMSEY nted at: [facility] SEMAGLUTIDE INJ,SOLN Non -VA INJECT SUBCUTANEOUSLY EVERY WEEK Non-VA Documented by: ANAYELI KIRKPATRICK nted at: [facility] SIMSMila [facility] TERBINAFINE HCL 1% CREAM,TOP Active APPLY LIGHT LY TO AFFECTED AREA TWO TIMES A DAY FOR INFECTION 90 Sep 23, 2020 [id number] Sep 24, 2019 ADRIEL HERNANDEZ CBGUILLREMO UREA 20% CREAM,TOP Active APPLY LIGHTLY (20%) TO AFFECTED AREA TWO TIMES A DAY NEEDED TO PROMOTE HEALING,RUB IN UNTIL COMPLETELY ABSORBED*FOR TOPICAL USE ONLY* APPLY TO BOTH FEET DIRECTED. 90 Sep 25, 2020 [id number] Sep 26, 2019 ADRIEL HERNANDEZ Problems (Conditions): All historical and current Section Date Range: From patient's date of to the date document was create d. This section includes a list of Problems (Conditions) know n to [facility] for the patient. It includes both active and inacti ve problems (conditions). The data comes from all [place] treatment facilities. Problem Status Problem Code Date of Onset Date of Resolution Comm ent(s) Provider Source Alcohol intake above recommended sensible limits Active 285012107 PADMA LONG [facility] Allergic conjunctivitis Active 289628708 MANTOL[place]INGNEDA [facility] Bilateral senile combined form cataracts of eyes Active 69993611219 9108 [place]FAC[place]EDA Luda [facility] Bilateral tinnitus Active 8500659842047 CHASTITY JEAN [facility] Coronary arteriosclerosis Active 96223336 September 08, 2014 Entered By: PADMA LONG Comment: hx of ptca to RCA several yrs. agoSeptember 08, 2014 Entered By: PADMA LONG Comment: heart cath 09/01/14, neg. / previous stent to RCA,, [place] HATCHER, JENNEY R [facility] Diabetes mellitus Active 92153586 PAMELA RAMSEY [facility] Disorder of pancreas Active 3007255 September 08, 2014 Entered By: PADMA LONG Comment: 2.5cm low density lseion in bodyMay 2014 Entered By: PADMA LONG Comment: question of communication with pancreatic ductMa2014 Entered By: PADMA LONG Comment: favored to be cystic pancreatic cancerSeptember 08, 2014 Entered By: PADMA LONG Comment: per abdominal CT 09/01/14, [place] PADMA LONG [facility] Dry eyes Active 213800665 NEDA SHAW [facility] Gastro-esophageal reflux disease without esophagitis ( SNOMED CT 895756454) Active 555316781 ALF GUEVARA [facility] History of malignant neoplasm of lung Active 932976888 CHAPO BARRETO [facility] Hyperlipidemia (SNOMED CT 65059269) Active 44012465 PAMELA RAMSEY [facility] Lung mass Active 602317957 September 08, 2014 E ntered By: PADMA LONG Comment: 4.5 cm mass, post. segment right upper lobe.September 08, 2014 Entered By: PADMA LONG Comment: mild adenopathy in mediastinum and bilat. hilaMay 2014 Entered By: PADMA LONG Comment: most likely related to lung cancerMa2014 Entered By: PADMA LONG Comment: per ct angio of chest with contrast 09/01/14,[place] 2014 Entered By: PADMA LONG Comment: per path report- mod. differentiated bronchogenic adenoca. 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 Active 78818226 KATHERINE MATT Juan M [facility] Obesity Active 630346009 SONG BULLOCK JuanM [facility] Obstructive sleep apnea syndrome (SNOMED CT 98816411) Active 914685 015 PHILIPPE DOUGLASS [facility] Pancreatic cyst Active 00939868 JAYLENE GUEVARA [facility] Papilloma of right eyelid Active [id number] NEDA SHAW Juan M [facility] Polyp of colon Active 97617942 Jan 23 16 Entered By: PADMA LONG Comment: c-scope 01/17/16, multiple benign colonic polypsJun 28, 2017 Entered By: PADMA LONG Comment: c-scope,06/25/17,[facility], three benign polyps- sigmoid colon, transverse colon,cecum. see path report cprs SHARRON TORRES [facility] Pulmonary emphysema Active 47043960 0 BRIANA LESLYE Juan M [facility] Sensorineural hearing loss, bilateral Active 489320016 CHASTITY JEAN [facility] Snoring Active 11108456 Jayshree BULLOCKUBAIR [facility] Type 2 diabetes mellitus without complication Active 224397077 COLINNEDA Luda [facility] Environmental Allergies (ICD-9-CM 477.9) Inactive 477.9 Dec 18, 2017 PADMA LONG [facility] External hemorrhoids without mention of complication (ICD-9- CM 455.3) Inactive 455.3 Dec 18, 2017 [facility] Impotence of organic origin (ICD-9-CM 607.84) Inactive 607.84 Dec 18, 2017 PADMA LONG [facility] Screening for Lipoid disorders (ICD-9-CM V77.91) Inactive V77.91 Jan 18, 2007 [facility] Stye * (ICD-9-CM 373.11) Inactive 373.11 Dec 18, 8 Jan 18, 2007 Entered By: PADMA LONG Comment: bilat lower lids, chronic/recurrent [facility]ADMA LONG [facility] Tobacco Use Disorder, Continuous Inactive 305.1 Dec 18, 2017 Jan 18, 2007 Entered By: PADMA LONG Comment: one ppd PADMA LONG [facility] Radiology Reports: +/- 30 days of the encounter No Data Provided for This Section Pathology Reports: +/- 30 days of the encounter No Data Provided for This Section Encounter Notes: All associated encounter notes This section contains the clinical notes associated to the Encounter. Date/Time Encounter Note(s) Provider Source Nov 12, 2019 10:49 AM PRIMARY CARE NOTE: [facility] TITLE: PRIMARY CARE NOTE DATE OF NOTE: NOV 12, 2019@10:49 ENTRY DATE: NOV 12, 2019@10:49:36 AUTHOR: SHANIQUA SCHMIDT EXP COSIGNER: URGENCY: STATUS: COMPLETED Primary Care Follow-Up Patient recently treated in: [facility] Admission Date: 11/11/19 Discharge Date: 11/11/19 Diagnoses were: TIA COVID PUI Hypoxia with exertion Medications added, stopped or changed: No changes Follow-up issues: F/U with leather stitcher, Dr. Serna as directed - for cardiac catherization that was postponed. F/U with Reji Hinojosa APRN on 11/13 @ 5780. Home Isolation until notified by health dept of your COVID results. /es/ SHANIQUA SCHMIDT RN Signed: 11/12/2019 11:11 Receipt Acknowledged By: 11/12/2019 15:01 /gisell/ SHANIQUA SCOTT [facility]
--- OUTSIDE RECORDS SUMMARY | 2019-12-02 07:53 | XMS REPORT | Encounter Summary ---
Author Author Department of [facility] Organization Department of [facility] Address [address] [place] [address] Phone Unavailable Care Team Providers Care Equipment Services Associate Name Role Phone DARIEL HERNANDEZ PCP Unavailable Insurance Providers: All historical and current No Data Provided for This Section Selected Encounter This section includes the information on record at [facility] for the Encounter. Date/Time Encounter Type Encounter Description Reason Provider Source Nov 13, 2019 10:47 AM Outpatient Encounter TELEPHONE/MEDICINE IC [id number] Hypoxemia with Provider Comments: Hypoxemia SALOMON ESTEVEZ [facility] IHE Encounter Template Text not used by MS Assessments - Encounter Diagnoses This section includes the primary and secondary diag noses documented for the Encounter. Date/Time Primary/Secondary Diagnosis Diagnosis Name Provider Source Nov 13, 2019 10:47 AM PRIMARY Hypoxemia SALOMON ESTEVEZ [facility] Plan of Treatment: Future Appointments (+ 6 months) and Future Tests (+/- 45 day s) The Plan of Treatment section includes future care activities for the patient fr om all [place] treatment facilities. This section includes future appointments and fu ture orders which are active, pending or scheduled. Future Appointments This section includes appointments that were scheduled t o occur 6 months from the date of the Encounter, up to a maximum of 20 appointme nts. The data comes from all [place] treatment facilities. Appointment Date/Time Appointment Type Appointment Facili ty Name Dec 31, 2019 11:00 AM AMBULATORY - NONE [facility] [place] Dec 31, 2019 01:15 PM AMBULATORY - MEDICINE [facility] Dec 31, 2019 01:16 PM AMBULATORY - MEDICINE [facility] Jan 01, 2020 09:00 AM AMBULATORY - MEDICINE [facility] Jan 07, 2020 12:00 PM AMBULATORY - MEDICINE [facility] Jan 27, 2020 01:00 PM [facility] Mar 31, 2020 09:30 AM [facility]UL[facility] - MEDICINE [facility] Mar 31, 2020 09:31 AM AMBULATORY - MEDICINE [facility] Mar 31, 2020 10:00 AM AMBULATORY - MEDICINE [facility] Mar 31, 2020 10:01 AM AMBULATORY - MEDICINE ARTUR BLAS [facility] Apr 07, 2020 08:00 AM AMBULATORY - NONE [facility] Active, Pending, and Scheduled Orders This [...] the Encounter. The data comes from all [facility] facilities. Test Date/Time Test Type Test Details Facility Name Nov 17, 2019 07:23 AM Consult Order [facility] [id number] Cons Host Coordinator's Choice ARTUR BLAS [facility] Dec 15, 2019 12:00 AM Laboratory - Chemistry Order CREATININ E (INCLUDES EGFR) GREEN TOP TUBE PLASMA SP [facility] [place] [facility] Surgical Procedures: All associated to the [...] and tobacco- related health factors from the MS facility where the Encounter took place. Current Smoking Status This section includes the most current smoking, or tobacco -related health factor, from the MS facility where the Encounter took place. Date/Time Current Smoking Status Comment Facility Jun 26, 2018 02:13 PM VA-TOBACCO QUIT 15 YRS OR MORE PORSHA BLAS [facility] Tobacco Use History This section includes a history of the smoking, or tobacco -related health factors, that were collected on or before the date of the Encoun ter. The data comes from the MS facility where the Encounter took place. Date/Time Smoking Status/Tobacco Use Comment [facility] Jun 26, 2018 02:13 PM VA-TOBACCO QUIT 15 YRS OR MORE PORSHA BLAS [facility] Jun 27, 2017 01:39 PM NON-TOBACCO USER [facility] Jun 27, 2017 01:16 PM NON-TOBACCO USER [facility] Jan 06, 2015 02:07 PM NON-TOBACCO USER [facility] Nov 23, 2014 10:38 AM NON-TOBACCO USER [facility] Oct 26, 2014 10:36 AM NON-TOBACCO USER [facility] Oct 14, 2014 11:09 AM NON-TOBACCO USER [facility] Advance Directives: All historical and current No Data Provided for This Section Allergies and Adverse Reactions (ADRs): All historical and current Section Date Range: From patient's date of to the date document was create d. This section includes Allergies and Adverse Reactions (ADR s) on record with VA for the patient. The data comes from a ll MS treatment facilities. It does not list Allergies/ADRs that were removed or entered in error. Some allergies/ADRs may be reported in t Immunization section. Allergen Event Date Event Type Reaction(s) Severity Source [place] September 08, 2014 Propensity to adverse reactions to drug (diso rder) [facility] 15 [place] September 08, 2014 Propensity to adverse reactions to drug (diso rder) [facility] 15 Medications: VA dispensed (-15 months) and Non-VA Documented (Obtained Outside V A) Section Date Range: 1) prescriptions processed by a VA pharmacy in the last 15 m [facility], and 2) all medications recorded in the VA medical record as "non-VA medic ations". Pharmacy terms refer to MS pharmacy's work on prescriptions. VA patient s are advised to take their medications as instructed by their health care team. The data comes from all MS treatment facilities. Glossary of Pharmacy Terms:Active = A prescription that can be filled at the local [place] pharmacy.Active: On Hold = An active prescription that will not be filled until pharmacy resolves the issue.Active: Susp = An active prescription that is not scheduled to be filled yet.Clinic Order = A medication received during a visit to a MS clinic or emergency department (currently not available).Discontinued [...] may be a prescription from either the MS or other providers that was filled outside the MS. Or, it may be an over the [...] TEST BLOOD GLUCOSE 50 Dec 19, 2019 [id number] September 04, 2019 PAMELA RAMSEY ACCU-CHEK CHARLES PLUS (GLUCOSE) TEST STRIP Discontinued USE 1 STRIP FOR TESTING TWO TIMES PER WEEK - DIRECTED TO TEST BLOOD GLUCOSE 50 Jul 25, 2019 [id number] Nov 12, 2018 PAMELA RAMSEY CB ALBUTEROL SO4 90MCG/ACTUAT (CFC-F) INHL,ORAL,6.7GM Active INHALE 2 PUFFS BY ORAL INHALATION EVERY 4 HOURS NEEDED FOR BREATHING. SHAKE WELL. RINSE MOUTHPIECE FREQUENTLY TO PREVENT CLOGGING. USE NEEDED FOR SHORTNESS OF AIR/WHEEZING FOR BREATHING. SHAKE WELL. RINSE MOUTHPIECE FREQUENTLY TO PREVENT CLOGGING. USE NEEDED FOR SHORTNESS OF AIR/WHEEZING 1 Dec 19, 2019 [id number] September 04, 2019 PAMELA RAMSEY ALCOHOL PREP PAD Active USE 1 PAD ON SKIN BIW TO CLEAN AND DISINFECT THE SKIN 200 Sep 29, 2020 [id number] Sep 30, 2019 MAURICIO RANKIN [facility] ALCOHOL PREP PAD Discontinued USE 1 PAD ON SKIN BI W TO CLEAN AND DISINFECT THE SKIN 200 Dec 19, 2019 [id number] Jun 06, 2019 PAMELA RAMSEY ALCOHOL PREP PAD Discontinued USE 1 PAD ON SKIN BI W TO CLEAN AND DISINFECT THE SKIN 200 Jul 25, 2019 [id number] Nov 12, 2018 PAMELA RAMSEY ASCORBIC ACID 250MG TAB Non-VA TAKE ONE TABLET BY MOUTH ONCE A DAY Non-VA Documented by: SHANIQUA SCHMIDT nted at: [facility] ASPIRIN 25MG/DIPYRIDAMOLE 200MG CAP,SA Active T CHAPIN 1 CAPSULE BY MOUTH TWO TIMES A DAY - SWALLOW WHOLE. DO NOT CRUSH OR CHEW. FOR RECURRENT TIA/STROKE 180 Dec 19, 2019 [id number] Dec 20, 2018 PAMELA RAMSEY [facility] ASPIRIN 25MG/DIPYRIDAMOLE 200MG CAP,SA Discontinued T CHAPIN 1 CAPSULE BY MOUTH TWO TIMES A DAY - SWALLOW WHOLE. DO NOT CRUSH OR CHEW. FOR RECURRENT TIA/STROKE 180 Feb 06, 2019 [id number] Sep 28, 2018 ZACHARY GRECO [facility] ASPIRIN 81MG TAB,EC Non- VA TAKE ONE TABLET BY MOUTH ONCE A DAY Non-VA Documented by: PADMA LONG nted at: [facility] ATORVASTATIN CA 80MG TAB Active TAKE ONE TABLET BY MOUTH AT BEDTIME FOR CHOLESTEROL - REPORT ANY UNEXPLAINED MUSCLE PAIN/WEAKNESS TO YOUR PROVIDER 90 Dec 19, 2019 [id number] September 04, 2019 PAMELA RAMSEY GUILLERMO ATORVASTATIN CA 80MG TAB Discontinued TAKE ONE TABLET BY MOUTH AT BEDTIME FOR CHOLESTEROL - REPORT ANY UNEXPLAINED MUSCLE PAIN/WEAKNESS TO YOUR PROVIDER 90 Dec 20, 2018 [id number] Nov 12, 2018 PAMELA RAMSEY CB BUDESONIDE 160MCG/FORMOTEROL FUM 4.5MCG/SPRAY INHL,ORAL,10.2 GM Active INHALE 2 PUFFS BY MOUTH TWO TIMES A DAY FOR BREATHING. SHAKE WELL. RINSE MOUTH AND SPIT AFTER EACH USE. 3 Apr 24, 2020 [id number] August 22, 2019 LISSA OATES [facility] CALCIUM/VITAMIN D TAB No n-VA TAKE BY MOUTH ONCE A DAY Non-V A Documented by: PADMA LONG nted at: [facility] CARBOXYMETHYLCELLULOSE NA 0.5% SOLN,OPH Active INSTILL ONE DROP IN BOTH EYES FOUR TIMES A DAY FOR DRY EYES 15 Feb 01, 2020 [id number] September [address] [facility] DICLOFENAC NA 1% GEL,TOP Discontinued APPLY 2 GRAMS A FFECTED AREA TWO TIMES A DAY NEEDED FOR PAIN AND INFLAMMATION. DO NOT EXCEED 16GM DAILY TO ANY AFFECTED JOINT OF LOWER EXTREMITIES. DO NOT EXCEED 8GM DAILY TO ANY AFFECTED JOINT OF UPPER EXTREMITES. DO NOT EXCEED TOTAL DOSE OF 32GM DAILY FOR ALL JOINTS. 100 Oct 31, 2018 [id number] Oct 06, 2018 ANAYELI KIRKPATRICK [facility] [...] FOR ALL JOINTS. 100 Jan 17, 2019 [id number] Dec 20, 2018 PAMELA RAMSEY FLUTICASONE PROPIONATE 50MCG/SPRAY SOLN,NASAL,16GM Active INSTILL 1 SPRAY IN EACH NOSTRIL ONCE A DAY SHAKE GENTLY BEFORE USE! - MUST BE USED DIRECTED FOR 3 WEEKS TO PROVIDE BENEFIT. * NO EARLY REFILLS * 1UNIT = 30DAYS AT 4 PF/DAY OR 60DAYS AT 2PF/DAY 2 Dec 19, 2019 [id number] August 26, 2019 PAMELA RAMSEY KETOTIFEN 0.025% SOLN,OPH Active INSTILL 1 DROP IN BOTH EYES TWO TIMES A DAY FOR RELIEF OF ALLERGY SYMPTOMS IN EYE(S) 10 Feb 01, 2020 [id number] September 04, 2019 [facility] LANCET,SOFTCLIX Active USE LANCET BIW FOR TESTING BL OOD GLUCOSE DIRECTED Sep 29, 2020 [id number] Sep 30, 2019 MAURICIO RANKIN LANCET,SOFTCLIX Discontinued USE LANCET BIW FO R TESTING BLOOD GLUCOSE DIRECTED Dec 19, 2019 [id number] Jun 06, 2019 PAMELA RAMSEY LANCET,SOFTCLIX Discontinued USE LANCET BIW FO R TESTING BLOOD GLUCOSE DIRECTED 100 Jul 25, 2019 [id number] Nov 12, 2018 PAMELA RAMSEY LISINOPRIL 40MG TAB Non- VA TAKE ONE-HALF TABLET BY MOUTH EVERY MORNING Non-VA Documented by: PAMELA RAMSEY nted at: [facility] LORATADINE/PSEUDOEPHEDRINE TAB,SA Non-VA TAKE BY MOUTH No n-VA Documented by: JUAN LANG Docume nted at: [facility] ACID (REPLACES ACIPHEX) 180 Dec 19, 2019 [id number] August 26, 2019 PAMELA RAMSEY POLYETHYLENE GLYCOL [...] Non-VA Documented by: KATHERINE MATT nted at: [facility] PREGABALIN 150MG CAP,ORAL Non-VA TAKE 1 CAPSULE BY MOUTH TWO TIMES A DAY Non-VA Docume nted by: PAMELA RAMSEY nted at: [facility] SEMAGLUTIDE INJ,SOLN Non -VA INJECT SUBCUTANEOUSLY EVERY WEEK Non-VA Documented by: ANAYELI KIRKPATRICKume nted at: [facility] TERBINAFINE HCL 1% CREAM,TOP Active APPLY LIGHT LY TO AFFECTED AREA TWO TIMES A DAY FOR INFECTION 90 Sep 23, 2020 [id number] Sep 24, 2019 ADRIEL HERNANDEZ CB UREA 20% CREAM,TOP Active APPLY LIGHTLY (20%) TO AFFECTED AREA TWO TIMES A DAY NEEDED TO PROMOTE HEALING,RUB IN UNTIL COMPLETELY ABSORBED*FOR TOPICAL USE ONLY* APPLY TO BOTH FEET DIRECTED. 90 Sep 25, 2020 [id number] Sep 26, 2019 ADRIEL HERNANDEZ [facility] Problems (Conditions): All historical and current Section Date Range: From patient's date of to the date document was create d. This section includes a list of Problems (Conditions) know n to MS for the patient. It includes both active and inacti ve problems (conditions). The data comes from all [place] treatment facilities. Problem Status Problem Code Date of Onset Date of Resolution Comm ent(s) Provider Source Alcohol intake above recommended sensible limits Active [id number] PADMA LONG [facility] Allergic conjunctivitis Active 425178671 [facility] Bilateral senile combined form cataracts of eyes Active 66105362957 9108 [facility] Bilateral tinnitus Active [id number] CHASTITY JEAN [facility] Coronary arteriosclerosis Active 68590174 September 08, 2014 Entered By: PADMA LONG Comment: hx of ptca to RCA several yrs. agoSeptember 08, 2014 Entered By: PADMA LONG Comment: heart cath 09/01/14, neg. / previous stent to RCA,, [place] HATCHER, JENNEY R [facility] Diabetes mellitus Active 54420398 PAMELA RAMSEY [facility] Disorder of pancreas Active 0382563 September 08, 2014 Entered By: PADMA LONG Comment: 2.5cm low density lseion in bodyMay 2014 Entered By: PADMA LONG Comment: question of communication with pancreatic ductMa2014 Entered By: PADMA LONG Comment: favored to be cystic pancreatic cancerSeptember 08, 2014 Entered By: PADMA LONG Comment: per abdominal CT 09/01/14, [place] PADMA LONG [facility] Dry eyes Active 894878740 [facility] Gastro-esophageal reflux disease without esophagitis ( SNOMED CT 984611158) Active 658042091 ALF GUEVARA [facility] History of malignant neoplasm of lung Active 211859694 CHAPO BARRETO [facility] Hyperlipidemia (SNOMED CT 11621262) Active 16316329 PAMELA RAMSEY [facility] Lung mass Active 197283198 September 08, 2014 E ntered By: PADMA LONG Comment: 4.5 cm mass, post. segment right upper lobe.September 08, 2014 Entered By: PADMA LONG Comment: mild adenopathy in mediastinum and bilat. hilaMay 2014 Entered By: PADMA LONG Comment: most likely related to lung cancerMay 2014 Entered By: PADMA LONG Comment: per ct angio of chest with contrast 09/01/14,[place] 2014 Entered By: PADMA LONG Comment: per path report- mod. differentiated bronchogenic adenoca. 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 Active 49635475 KATHERINE MATT [facility] Obesity Active 365786374 SONG BULLOCK [facility] Obstructive sleep apnea syndrome (SNOMED CT 37644660) Active 819398 015 PHILIPPE DOUGLASS [facility] Pancreatic cyst Active 39322326 JAYLENE GUEVARA [facility] Papilloma of right eyelid Active [id number] N[facility]A SHAW [facility] Polyp of colon Active 71860647 Jan 23 16 Entered By: PADMA LONG Comment: c-scope 01/17/16, multiple benign colonic polypsJun 28, 2017 Entered By: PADMA LONG Comment: c-scope,06/25/17,[facility], three benign polyps- sigmoid colon, transverse colon,cecum. see path report cprs SHARRON TORRES MO THAYER [facility] Pulmonary emphysema Active 33211018 0 BRIANA L[facility]LYE [place] [facility] Sensorineural hearing loss, bilateral Active 324702500 CHASTITY JEAN [facility] Snoring Active 60653729 SONG BULLOCK [facility] Type 2 diabetes mellitus without complication Active 734272330 NEDA SHAW [facility] Environmental Allergies (ICD-9-CM 477.9) Inactive 477.9 Dec 18, 2017 [facility] External hemorrhoids without mention of complication (ICD-9- CM 455.3) Inactive 455.3 Dec 18, 2017 [facility] Impotence of organic origin (ICD-9-CM 607.84) Inactive 607.84 Dec 18, 2017 [facility] Screening for Lipoid disorders (ICD-9-CM V77.91) Inactive V77.91 Jan 18, 2007 [facility]AD[facility] Stye * (ICD-9-CM 373.11) Inactive 373.11 Dec 18, 201 8 Jan 18, 2007 Entered By: PADMA LONG Comment: bilat lower lids, chronic/recurrent PADMA LONG Juan [facility] Tobacco [...] Encounter. Date/Time Encounter Note(s) Provider Source Nov 13, 2019 10:48 AM HOME HEALTH TREATMENT PLAN N OTE: LOCAL TITLE: [place]-HOME OXYGEN (BP) STANDARD TITLE: HOME HEALTH TREATMENT PLAN NOTE DATE OF NOTE: NOV 13, 2019@10:48 ENTRY DATE: NOV 13, 2019@10:48:10 AUTHOR: SALOMON ESTEVEZ EXP COSIGNER: SONG BULLOCK URGENCY: STATUS: COMPLETED Message received from with questions about his oxygen equipment. Returned veterans call at 1045. reports not getting an adapter for the oxygen to go in his Cpap machine. Advised that according to the records I received from [facility] he did not require oxygen at noc inline with his Cpap. Freeman also requesting a humidifier bottle for his oxygen concentrator. Let him know I will contact the oxygen vendor to get one out to him today. Freeman appreciative of my call and confirmed he will see me for his appt at the [facility] Jan 07, 2020. /gisell/ SALOMON ESTEVEZ Registered Respiratory Therapist Signed: 11/13/2019 10:53 /es/ SONG BULLOCK STAFF PHYSICIAN/AUTOMOTIVE TIRE TESTING SUPERVISOR Cosigned: 11/13/2019 11:43 SALOMON ESTEVEZ [facility]
--- OUTSIDE RECORDS SUMMARY | 2019-12-02 07:53 | XMS REPORT | Encounter Summary ---
Author Author Department of [facility] Aff rsHERBERTH Organization [facility] Address [address] [place] [address] Phone Unavailable Care Team Providers Care Evaluation Manager Name Role Phone ADRIEL HERNANDEZ PCP Unavailable Insurance Providers: All historical and current No Data Provided for This Section Selected Encounter This section includes the information on record at [place] for the Encounter. Date/Time Encounter Type Encounter Description Reason Provider Source Nov 12, 2019 10:13 AM Outpatient Encounter ADMIN PAT ACTIVTIES ([place]ARY[place] NCT) [facility] IHE Encounter Template Text not [...] 11:00 AM AMBULATORY - NONE [facility] Dec 31, 2019 01:15 PM AMBULATORY - MEDICINE [facility] Dec 31, 2019 01:16 PM AMBULATORY - MEDICINE [facility] Jan 01, 2020 09:00 AM AMBULATORY - MEDICINE [facility] Jan 07, 2020 12:00 PM AMBULATORY - MEDICINE [facility] Jan 27, 2020 01:00 PM [facility] Mar 31, 2020 09:30 AM AMBULATORY - MEDICINE [facility] Mar 31, 2020 09:31 AM AMBULATORY - MEDICINE [facility] Mar 31, 2020 10:00 AM AMBULATORY - MEDICINE [facility] Mar 31, 2020 10:01 AM AMBULATORY - MEDICINE ART[facility] Apr 07, 2020 08:00 AM [...] Nov 17, 2019 07:23 AM Consult Order [facility] [id number] Cons Licensed Embalmer's Choice [facility] Dec 15, 2019 12:00 AM Laboratory - Chemistry Order CREATININ E (INCLUDES EGFR) GREEN TOP TUBE PLASMA SP [facility] Surgical Procedures: All associated to [...] Encounter took place. Date/Time Current Smoking Status [facility] Nov 23, 2017 09:51 AM TOBACCO USER OFFERED [facility] Tobacco Use History This section includes a history of the smoking, or tobacco -related health factors, that were collected on or before the date of the Encoun ter. The data comes from the [place] facility where the Encounter took place. Date/Time Smoking Status/Tobacco Use Comment Facil ity Nov 23, 2017 09:51 AM CURRENT TOBACCO USER (READY TO QUIT) [facility] Nov 23, 2017 09:51 AM TOBACCO CESSATION REFERRAL DECLINED [facility] Nov 23, 2017 09:51 AM TOBACCO USER [facility]ED [facility] Dec 18, 2016 08:55 AM NON-TOBACCO USER [facility] Dec 01, 2005 08:32 AM CURRENT NON-SMOKER [facility] Dec 01, 2005 08:32 AM LIFETIME NON-SMOKER [facility] Dec 01, 2005 08:32 AM LIFETIME NON-TOBACCO USER [facility] Dec 01, 2005 08:32 AM NON-SMOKER [facility] Dec 01, 2005 08:32 AM NON-TOBACCO USER [facility] Advance Directives: All historical and [...] to adverse reactions to drug (diso rder) [facility] 15 PLAVIX September 08, 2014 Propensity to adverse reactions to drug (diso rder) [facility] 15 Medications: VA dispensed (-15 months) and Non-VA Documented (Obtained Outside V A) Section Date Range: 1) prescriptions processed by a VA pharmacy in the last 15 m [facility], and 2) all medications recorded in [...] may be a prescription from either the [place] or other providers that was filled outside the [place]. Or, it may be an over the [...] TEST BLOOD GLUCOSE 50 Dec 19, 2019 [id number] September 04, 2019 PAMELA RAMSEY ACCU-CHEK CHARLES PLUS (GLUCOSE) TEST STRIP Discontinued USE 1 STRIP FOR TESTING TWO TIMES PER WEEK - DIRECTED TO TEST BLOOD GLUCOSE 50 Jul 25, 2019 [id number] Nov 12, 2018 PAMELA RAMSEY ALBUTEROL SO4 90MCG/ACTUAT (CFC-F) INHL,ORAL,6.7GM Active INHALE 2 PUFFS BY ORAL INHALATION EVERY 4 HOURS NEEDED FOR BREATHING. SHAKE WELL. RINSE MOUTHPIECE FREQUENTLY TO PREVENT CLOGGING. USE NEEDED FOR SHORTNESS OF AIR/WHEEZING FOR BREATHING. SHAKE WELL. RINSE MOUTHPIECE FREQUENTLY TO PREVENT CLOGGING. USE NEEDED FOR SHORTNESS OF AIR/WHEEZING Dec 19, 2019 [id number] September 04, 2019 [facility] ALCOHOL PREP PAD Active USE 1 PAD ON SKIN BIW TO CLEAN AND DISINFECT THE SKIN Sep 29, 2020 [id number] Sep 30, 2019 [facility]IC[facility] RANKIN [facility] ALCOHOL PREP PAD Discontinued USE 1 PAD ON SKIN BI W TO CLEAN AND DISINFECT THE SKIN 200 Dec 19, 2019 [id number] Jun 06, 2019 [facility] ALCOHOL PREP PAD Discontinued USE 1 PAD ON SKIN BI W TO CLEAN AND DISINFECT THE SKIN 200 Jul 25, 2019 [id number] Nov 12, 2018 PAMELA RAMSEY ASCORBIC ACID 250MG TAB Non-VA TAKE ONE TABLET BY MOUTH ONCE A DAY Non-VA Documented by: SHANIQUA SCHMIDT nted at: [facility] ASPIRIN 25MG/DIPYRIDAMOLE 200MG CAP,SA Active T CHAPIN 1 CAPSULE BY MOUTH TWO TIMES A DAY - SWALLOW WHOLE. DO NOT CRUSH OR CHEW. FOR RECURRENT TIA/STROKE 180 Dec 19, 2019 [id number] Dec 20, 2018 [facility] ASPIRIN 25MG/DIPYRIDAMOLE 200MG CAP,SA Discontinued T CHAPIN 1 CAPSULE BY MOUTH TWO TIMES A DAY - SWALLOW WHOLE. DO NOT CRUSH OR CHEW. FOR RECURRENT TIA/STROKE 180 Feb 06, 2019 [id number] Sep 28, 2018 ZACHARY [facility]CO [facility] ASPIRIN 81MG TAB,EC Non- VA TAKE ONE TABLET BY MOUTH ONCE A DAY Non-VA Documented by: PADMA LONG nted at: [facility] ATORVASTATIN CA 80MG TAB Active TAKE ONE TABLET BY MOUTH AT BEDTIME FOR CHOLESTEROL - REPORT ANY UNEXPLAINED MUSCLE PAIN/WEAKNESS TO YOUR PROVIDER 90 Dec 19, 2019 [id number] September 04, 2019 PAMELA RAMSEY ATORVASTATIN CA 80MG TAB Discontinued TAKE ONE TABLET BY MOUTH AT BEDTIME FOR CHOLESTEROL - REPORT ANY UNEXPLAINED MUSCLE PAIN/WEAKNESS TO YOUR PROVIDER 90 Dec 20, 2018 [id number] Nov 12, 2018 PAMELA RAMSEY BUDESONIDE 160MCG/FORMOTEROL FUM 4.5MCG/SPRAY INHL,ORAL,10.2 GM Active INHALE 2 PUFFS BY MOUTH TWO TIMES A DAY FOR BREATHING. SHAKE WELL. RINSE MOUTH AND SPIT AFTER EACH USE. 3 Apr 24, 2020 [id number] August 22, 2019 LISSA OATES [facility] CALCIUM/VITAMIN D TAB No n-VA TAKE BY MOUTH ONCE A DAY Non-V A Documented by: PADMA LONG nted at: [facility] CARBOXYMETHYLCELLULOSE NA 0.5% SOLN,OPH Active INSTILL ONE DROP IN BOTH EYES FOUR TIMES A DAY FOR DRY EYES 15 Feb 01, 2020 [id number] September 03 0 [facility] DICLOFE[facility] NA 1% GEL,TOP Discontinued APPLY 2 GRAMS A FFECTED AREA TWO TIMES A DAY NEEDED FOR PAIN AND INFLAMMATION. DO NOT EXCEED 16GM DAILY TO ANY AFFECTED JOINT OF LOWER EXTREMITIES. DO NOT EXCEED 8GM DAILY TO ANY AFFECTED JOINT OF UPPER EXTREMITES. DO NOT EXCEED TOTAL DOSE OF 32GM DAILY FOR ALL JOINTS. 100 Oct 31, 2018 [id number] Oct 06, 2018 ANAYELI KIRKPATRICK Luda Juan M BLAS [facility] DICLOFENAC NA 1% GEL,TOP APPLY 2 GRAMS A FFECTED AREA TWO TIMES A DAY NEEDED FOR PAIN AND INFLAMMATION. DO NOT EXCEED 16GM DAILY TO ANY AFFECTED JOINT OF LOWER EXTREMITIES. DO NOT EXCEED 8GM DAILY TO ANY AFFECTED JOINT OF UPPER EXTREMITES. DO NOT EXCEED TOTAL DOSE OF 32GM DAILY FOR ALL JOINTS. 100 Jan 17, 2019 [id number] Dec 20, 2018 PAMELA RAMSEY FLUTICASONE PROPIONATE 50MCG/SPRAY SOLN,NASAL,16GM Active INSTILL 1 SPRAY IN EACH NOSTRIL ONCE A DAY SHAKE GENTLY BEFORE USE! - MUST BE USED DIRECTED FOR 3 WEEKS TO PROVIDE BENEFIT. * NO EARLY REFILLS * 1UNIT = 30DAYS AT 4 PF/DAY OR 60DAYS AT 2PF/DAY 2 Dec 19, 2019 [id number] August 26, 2019 PAMELA RAMSEY KETOTIFEN 0.025% SOLN,OPH Active INSTILL 1 DROP IN BOTH EYES TWO TIMES A DAY FOR RELIEF OF ALLERGY SYMPTOMS IN EYE(S) Feb 01, 2020 [id number] September 04, 2019 [facility] LANCET,SOFTCLIX Active USE LANCET BIW FOR TESTING BL OOD GLUCOSE DIRECTED 100 Sep 29, 2020 [id number] Sep 30, 2019 MAURICIO RANKIN LANCET,SOFTCLIX Discontinued USE LANCET BIW FO R TESTING BLOOD GLUCOSE DIRECTED Dec 19, 2019 [id number] Jun 06, 2019 PAMELA RAMSEY LANCET,SOFTCLIX Discontinued USE LANCET BIW FO R TESTING BLOOD GLUCOSE DIRECTED Jul 25, 2019 [id number] Nov 12, 2018 PAMELA RAMSEY LISINOPRIL 40MG TAB Non- VA TAKE ONE-HALF TABLET BY MOUTH EVERY MORNING Non-VA Documented by: PAMELA RAMSEY nted at: [facility] LORATADINE/PSEUDOEPHEDRINE TAB,SA Non-VA TAKE BY MOUTH No n-VA Documented by: JUAN LANG nted at: [facility] MAGNESIUM OXIDE 400MG TAB Non-VA TAKE ONE TABLET BY MOUTH ONCE A DAY Non-VA Documented by: SHANIQUA SCHMIDT nted at: [facility] METFORMIN HCL 500MG TAB Non-VA TAKE ONE TABLET BY MOUTH TWO TIMES A DAY WITH BREAKFAST AND EVENING MEAL Non-VA Documented by: SHANIQUA SCHMIDT nted at: [facility] MULTIVITAMINS CAP/TAB No n-VA TAKE 1 CAP/TAB BY MOUTH ONCE A DAY Non-VA Documented by: SHANIQUA SCHMIDT nted at: [facility] OMEPRAZOLE 20MG CAP,EC Active TAKE 2 CAPSULES B Y MOUTH BEFORE BREAKFAST 30 MINUTES BEFORE EATING TO LOWER STOMACH ACID (REPLACES ACIPHEX) 180 Dec 19, 2019 [id number] August 26, 2019 PAMELA RAMSEY POLYETHYLENE GLYCOL [...] Documented by: KATHERINE MATT nted at: [facility] PREGABALIN 150MG CAP,ORAL Non-VA TAKE 1 CAPSULE BY MOUTH TWO TIMES A DAY Non-VA Docume nted by: PAMELA RAMSEY nted at: [facility] SEMAGLUTIDE INJ,SOLN Non -VA INJECT SUBCUTANEOUSLY EVERY WEEK Non-VA Documented by: ANAYELI KIRKPATRICK nted at: [facility] TERBINAFINE HCL 1% CREAM,TOP Active APPLY LIGHT LY TO AFFECTED AREA TWO TIMES A DAY FOR INFECTION 90 Sep 23, 2020 [id number] Sep 24, 2019 MARY,ADRIEL B [facility] UREA 20% CREAM,TOP Active APPLY LIGHTLY (20%) TO AFFECTED AREA TWO TIMES A DAY NEEDED TO PROMOTE HEALING,RUB IN UNTIL COMPLETELY ABSORBED*FOR TOPICAL USE ONLY* APPLY TO BOTH FEET DIRECTED. 90 Sep 25, 2020 [id number] Sep 26, 2019 AD[facility]EL HERNANDEZ [facility] Problems [...] Alcohol intake above recommended sensible limits Active 867479846 [facility] Allergic conjunctivitis Active 025964554 [facility] SH[facility] Bilateral senile combined form cataracts of eyes Active 30649668678 9108 [facility]BBVILLENEDA [facility] Bilateral tinnitus Active [id number] CHASTITY JEAN [facility] Coronary arteriosclerosis Active 77798668 September 08, 2014 Entered By: PADMA LONG Comment: hx of ptca to RCA several yrs. agoSeptember 08, 2014 Entered By: PADMA LONG Comment: heart cath 09/01/14, neg. / previous stent to RCA,, [facility] KALA JONES [facility] Diabetes mellitus Active 48629793 PAMELA RAMSEY [facility] Disorder of pancreas Active 4730188 September 08, 2014 Entered By: PADMA LONG Comment: 2.5cm low density lseion in bodyMay 2014 Entered By: PADMA LONG Comment: question of communication with pancreatic ductMay 2014 Entered By: PADMA LONG Comment: favored to be cystic pancreatic cancerSeptember 08, 2014 Entered By: PADMA LONG Comment: per abdominal CT 09/01/14, via abida meneses,co PADMA LONG [facility] Dry eyes Active 196060968 [facility]A [facility] Gastro-esophageal reflux disease without esophagitis ( SNOMED CT 780199196) Active 120796665 ALF GUEVARA [facility] History of malignant neoplasm of lung Active 052757359 CHAPO BARRETO [facility] Hyperlipidemia (SNOMED CT 25449919) Active 26523954 PAMELA RAMSEY [facility] Lung mass Active 494935932 September 08, 2014 E ntered By: PADMA LONG Comment: 4.5 cm mass, post. segment right upper lobe.September 08, 2014 Entered By: PADMA LONG Comment: mild adenopathy in mediastinum and bilat. [email or web address] Entered By: PADMA LONG Comment: most likely related to lung cancerMa2014 Entered By: PADMA LONG Comment: per ct angio of chest with contrast 09/01/14,[facility] Entered By: PADMA LONG Comment: per path report- mod. differentiated bronchogenic adenoca. 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 Active 61512381 KATHERINE MATT [facility] Obesity Active 702804456 [facility] Obstructive sleep apnea syndrome (SNOMED CT 89316878) Active 499605 015 [place] [facility] Pancreatic cyst Active 31048619 JAYLENE GUEVARA [facility] Papilloma of right eyelid Active [id number] [facility] Polyp of colon Active 94645393 Jan 23 16 Entered By: PADMA LONG Comment: c-scope 01/17/16, multiple benign colonic polypsJun 28, 2017 Entered By: PADMA LONG Comment: c-scope,06[facility]25/17,[facility], three benign polyps- sigmoid colon, transverse colon,cecum. see path report [facility] Pulmonary emphysema Active 38461934 0 BRIANA GAVIN [facility] Sensorineural hearing loss, bilateral Active 387936260 CHASTITY JEAN [facility] [place] [facility] Snoring Active 94560598 S[place]ULL[place] ARTUR [facility] Type 2 diabetes mellitus without complication Active 263926163 [facility] Environmental Allergies (ICD-9-CM 477.9) Inactive 477.9 Dec 18, 2017 [facility] External hemorrhoids without mention of complication (ICD-9- CM 455.3) Inactive 455.3 Dec 18, 2017 [facility] Impotence of organic origin (ICD-9-CM 607.84) Inactive 607.84 Dec 18, 2017 [facility] Screening for Lipoid disorders (ICD-9-CM V77.91) Inactive V77.91 Jan 18, 2007 [facility] Stye * (ICD-9-CM 373.11) Inactive 373.11 Dec 18, 201 8 Jan 18, 2007 Entered By: PADMA LONG Comment: bilat lower lids, chronic/recurrent PADMA LONG Juan M [facility] Tobacco Use Disorder, Continuous Inactive 305.1 Dec 18, 2017 Jan 18, 2007 Entered By: PADMA LONG Comment: one ppd PADMA LONG [facility] Radiology Reports: +/- 30 days of the encounter No Data Provided for This Section Pathology Reports: +/- 30 days of the encounter No Data Provided for This Section Encounter Notes: All associated encounter notes This section contains the clinical notes associated to the Encounter. Date/Time Encounter Note(s) Provider Source Nov 12, 2019 10:13 AM ADMINISTRATIVE NOTE: LOCAL TITLE: [place]-ADMIN MSA STANDARD TITLE: ADMINISTRATIVE NOTE DATE OF NOTE: NOV 12, 2019@10:13 ENTRY DATE: NOV 12, 2019@10:13:21 AUTHOR: BESSIE BOWERS EXP COSIGNER: URGENCY: STATUS: COMPLETED MSA Administrative Note: RECORDS RECEIVED TODAY by: Fax Nature of report:Discharge summary Date(s) of record(s):11/11/2019 Sending alliance party:[facility] /gisell/ BESSIE [facility] Signed: 11/12/2019 10:14 BESSIE BOWERS [facility]
--- OUTSIDE RECORDS SUMMARY | 2019-12-02 07:53 | XMS REPORT | Encounter Summary ---
Author Author [facility] Organization Department of [facility] Affai Address [address] [place] [address] Phone Unavailable Care Team Providers Care Credit Director Name Role Phone ADRIEL HERNANDEZ PCP Unavailable Insurance Providers: All historical and current No Data Provided for This Section Selected Encounter This section includes the information on record at [place] for the Encounter. Date/Time Encounter Type Encounter Description Reason Provider Source Nov 14, 2019 10:15 AM Outpatient Encounter TELEPHONE/MEDICINE D-10-CM Z85.118 Personal history of malignant neoplasm of bronchus and lung with Provider Comments: History of malignant neoplasm of lung ([facility] [id number]) DAYLIN WORLEY [facility] IHE Encounter Template Text not used by [place] Assessments - Encounter Diagnoses This section includes the primary and secondary diag noses documented for the Encounter. Date/Time Primary/Secondary Diagnosis Diagnosis Name Provider Source Nov 14, 2019 10:15 AM PRIMARY Personal history o f malignant neoplasm of bronchus and lung DAYLIN WORLEY [facility] Plan of Treatment: Future Appointments (+ [...] appointme nts. The data comes from all [facility]. Appointment Date/Time Appointment Type Appointment Facili ty Name Dec 31, 2019 11:00 AM AMBULATORY - NONE [facility] Dec 31, 2019 01:15 PM AMBULATORY - MEDICINE [facility] Dec 31, 2019 01:16 PM AMBULATORY - MEDICINE [facility] Jan 01, 2020 09:00 AM AMBULATORY - MEDICINE [facility] LaresJuan M SIMSMila [facility] Jan 07, 2020 12:00 PM AMBULATORY - MEDICINE [facility] Jan 27, 2020 01:00 PM AMBULATORY - MEDICINE [facility] Mar 31, 2020 09:30 AM AMBULATORY - MEDICINE [facility] Mar 31, 2020 09:31 AM AMBULATORY - MEDICINE [facility] LaresJuan M SIMSMila [facility] Mar 31, 2020 10:00 AM AMBULATORY - MEDICINE [facility] Mar 31, 2020 10:01 AM AMBULATORY - MEDICINE [facility] SIMSMila [facility] Apr 07, 2020 08:00 AM AMBULATORY - NONE [facility] Active, Pending, and Scheduled Orders [...] the Encounter. The data comes from all [facility]. Test Date/Time Test Type Test Details Facility Name Nov 17, 2019 07:23 AM Consult Order [facility] [id number] Cons Curing Room Worker's Choice [facility] Dec 15, 2019 12:00 AM Laboratory - Chemistry Order CREATININ E (INCLUDES EGFR) GREEN TOP TUBE PLASMA SP [facility] Shu [facility] Surgical Procedures: All associated to the [...] QUIT 15 YRS OR MORE [facility] Tobacco Use History This section includes a history of the smoking, or tobacco -related health factors, that were collected on or before the date of the Encoun ter. The data comes from the [place] facility where the Encounter took place. Date/Time Smoking Status/Tobacco Use Comment [facility] Jun 26, 2018 02:13 PM VA-TOBACCO QUIT 15 YRS OR MORE [facility] Jun 27, 2017 01:39 PM NON-TOBACCO USER [facility] Jun 27, 2017 01:16 PM NON-TOBACCO USER [facility] Jan 06, 2015 02:07 PM NON-TOBACCO USER [facility] Nov 23, 2014 10:38 AM NON-TOBACCO USER [facility] Oct 26, 2014 10:36 AM NON-TOBACCO USER [facility] LaresJuan M SIMSMila [facility] Oct 14, 2014 11:09 AM NON-TOBACCO USER [facility]res[facility]uan [facility] Advance Directives: All historical and current No Data Provided for This Section Allergies and Adverse Reactions (ADRs): All historical and current Section Date Range: From patient's date of to the date document was create d. This section includes Allergies and Adverse Reactions (ADR s) on record with [facility] for the patient. The data comes from a [facility] treatment facilities. It does not list Allergies/ADRs that were removed or entered in error. Some allergies/ADRs may be reported in t he Immunization section. Allergen Event Date Event Type Reaction(s) Severity Source [place] September 08, 2014 Propensity to adverse reactions to drug (diso rder) [facility] [place] September 08, 2014 Propensity to adverse reactions to drug (diso rder) [facility] Medications: VA dispensed (-15 [...] may be a prescription from either the [place] or other providers that was filled outside [...] TEST BLOOD GLUCOSE 50 Dec 19, 2019 [id number] September 04, 2019 PAMELA RAMSEY ACCU-CHEK CHARLES PLUS (GLUCOSE) TEST STRIP Discontinued USE 1 STRIP FOR TESTING TWO TIMES PER WEEK - DIRECTED TO TEST BLOOD GLUCOSE 50 Jul 25, 2019 [id number] Nov 12, 2018 PAMELA RAMSEY ALBUTEROL SO4 90MCG/ACTUAT (CFC-F) INHL,ORAL,6.7GM Active INHALE 2 PUFFS BY ORAL INHALATION EVERY 4 HOURS NEEDED FOR BREATHING. SHAKE WELL. RINSE MOUTHPIECE FREQUENTLY TO PREVENT CLOGGING. USE NEEDED FOR SHORTNESS OF AIR/WHEEZING FOR BREATHING. SHAKE WELL. RINSE MOUTHPIECE FREQUENTLY TO PREVENT CLOGGING. USE NEEDED FOR SHORTNESS OF AIR/WHEEZING 1 Dec 19, 2019 [id number] September 04, 2019 BRAULIO,PAMLEA [facility] ALCOHOL PREP PAD Active USE 1 PAD ON SKIN BIW TO CLEAN AND DISINFECT THE SKIN 200 Sep 29, 2020 [id number] Sep 30, 2019 MAURICIO RANKIN [facility] ALCOHOL PREP PAD Discontinued USE 1 PAD ON SKIN BI W TO CLEAN AND DISINFECT THE SKIN 200 Dec 19, 2019 [id number] Jun 06, 2019 PAMELA RAMSEY [facility] ALCOHOL PREP PAD Discontinued USE 1 PAD ON SKIN BI W TO CLEAN AND DISINFECT THE SKIN 200 Jul 25, 2019 [id number] Nov 12, 2018 PAMELA RAMSEY [facility] ASCORBIC ACID 250MG TAB Non-VA TAKE ONE TABLET BY MOUTH ONCE A DAY Non-VA Documented by: SHANIQUA SCHMIDT nted at: [facility] ASPIRIN 25MG/DIPYRIDAMOLE 200MG CAP,SA Active T CHAPIN 1 CAPSULE BY MOUTH TWO TIMES A DAY - SWALLOW WHOLE. DO NOT CRUSH OR CHEW. FOR RECURRENT TIA/STROKE 180 Dec 19, 2019 [id number] Dec 20, 2018 PAMELA RAMSEY [facility] ASPIRIN 25MG/DIPYRIDAMOLE 200MG CAP,SA Discontinued T CHAPIN 1 CAPSULE BY MOUTH TWO TIMES A DAY - SWALLOW WHOLE. DO NOT CRUSH OR CHEW. FOR RECURRENT TIA/STROKE 180 Feb 06, 2019 [id number] Sep 28, 2018 ZACHARY [facility] ASPIRIN 81MG TAB,EC Non- VA TAKE ONE TABLET BY MOUTH ONCE A DAY Non-VA Documented by: PADMA LONGume nted at: [facility] ATORVASTATIN CA 80MG TAB Active TAKE ONE TABLET BY MOUTH AT BEDTIME FOR CHOLESTEROL - REPORT ANY UNEXPLAINED MUSCLE PAIN/WEAKNESS TO YOUR PROVIDER 90 Dec 19, 2019 [id number] September 04, 2019 PAMELA RAMSEY ATORVASTATIN CA 80MG TAB Discontinued TAKE ONE TABLET BY MOUTH AT BEDTIME FOR CHOLESTEROL - REPORT ANY UNEXPLAINED MUSCLE PAIN/WEAKNESS TO YOUR PROVIDER 90 Dec 20, 2018 [id number] Nov 12, 2018 PAMELA RAMSEY BUDESONIDE 160MCG/FORMOTEROL FUM 4.5MCG/SPRAY INHL,ORAL,10.2 GM Active INHALE 2 PUFFS BY MOUTH TWO TIMES A DAY FOR BREATHING. SHAKE WELL. RINSE MOUTH AND SPIT AFTER EACH USE. 3 Apr 24, 2020 [id number] August 22, 2019 LISSA OATES [facility] CALCIUM/VITAMIN D TAB No n-VA TAKE BY MOUTH ONCE A DAY Non-V A Documented by: PADMA LONG nted at: [facility] CARBOXYMETHYLCELLULOSE NA 0.5% SOLN,OPH Active INSTILL ONE DROP IN BOTH EYES FOUR TIMES A DAY FOR DRY EYES 15 Feb 01, 2020 [id number] September 03 0 [facility] DICLOFENAC NA 1% GEL,TOP Discontinued APPLY 2 GRAMS A FFECTED AREA TWO TIMES A DAY NEEDED FOR PAIN AND INFLAMMATION. DO NOT EXCEED 16GM DAILY TO ANY AFFECTED JOINT OF LOWER EXTREMITIES. DO NOT EXCEED 8GM DAILY TO ANY AFFECTED JOINT OF UPPER EXTREMITES. DO NOT EXCEED TOTAL DOSE OF 32GM DAILY FOR ALL JOINTS. 100 Oct 31, 2018 [id number] Oct 06, 2018 ANAYELI KIRKPATRICK [facility] [...] FOR ALL JOINTS. 100 Jan 17, 2019 [id number] Dec 20, 2018 PAMELA RAMSEY [facility] FLUTICASONE PROPIONATE 50MCG/SPRAY SOLN,NASAL,16GM Active INSTILL 1 SPRAY IN EACH NOSTRIL ONCE A DAY SHAKE GENTLY BEFORE USE! - MUST BE USED DIRECTED FOR 3 WEEKS TO PROVIDE BENEFIT. * NO EARLY REFILLS * 1UNIT = 30DAYS AT 4 PF/DAY OR 60DAYS AT 2PF/DAY 2 Dec 19, 2019 [id number] August 26, 2019 PAMELA RAMSEY KETOTIFEN 0.025% SOLN,OPH Active INSTILL 1 DROP IN BOTH EYES TWO TIMES A DAY FOR RELIEF OF ALLERGY SYMPTOMS IN EYE(S) Feb 01, 2020 [id number] September 04, 2019 [facility] LANCET,SOFTCLIX Active USE LANCET BIW FOR TESTING BL OOD GLUCOSE DIRECTED 100 Sep 29, 2020 [id number] Sep 30, 2019 [facility] LANCET,SOFTCLIX Discontinued USE LANCET BIW FO R TESTING BLOOD GLUCOSE DIRECTED 100 Dec 19, 2019 [id number] Jun 06, 2019 PAMELA RAMSEY LANCET,SOFTCLIX Discontinued USE LANCET BIW FO R TESTING BLOOD GLUCOSE DIRECTED 100 Jul 25, 2019 [id number] Nov 12, 2018 PAMELA RAMSEY LISINOPRIL 40MG TAB Non- VA TAKE ONE-HALF TABLET BY MOUTH EVERY MORNING Non-VA Documented by: PAMELA RAMSEY nted at: [facility] LORATADINE/PSEUDOEPHEDRINE TAB,SA Non-VA TAKE BY MOUTH No n-VA Documented by: JUAN LANG nted at: [facility] MAGNESIUM OXIDE 400MG TAB Non-VA TAKE [...] ACID (REPLACES ACIPHEX) 180 Dec 19, 2019 [id number] August 26, 2019 PAMELA RAMSEY POLYETHYLENE GLYCOL [...] by: ANAYELI KIRKPATRICK nted at: [facility] [place] [facility] TERBINAFINE HCL 1% CREAM,TOP Active APPLY LIGHT LY TO AFFECTED AREA TWO TIMES A DAY FOR INFECTION 90 Sep 23, 2020 [id number] Sep 24, 2019 ADRIEL HERNANDEZ UREA 20% CREAM,TOP Active APPLY LIGHTLY (20%) TO AFFECTED AREA TWO TIMES A DAY NEEDED TO PROMOTE HEALING,RUB IN UNTIL COMPLETELY ABSORBED*FOR TOPICAL USE ONLY* APPLY TO BOTH FEET DIRECTED. 90 Sep 25, 2020 [id number] Sep 26, 2019 ADRIEL HERNANDEZ Problems (Conditions): [...] Alcohol intake above recommended sensible limits Active 080873070 PADMA LONG [facility] Allergic conjunctivitis Active 418582881 HIGGINSONLISSETTEA Luda [facility] Bilateral senile combined form cataracts of eyes Active 82348015900 9108 HIGGINSONFACUNDONEDA Luda [facility] Bilateral tinnitus Active 4890387666081 CHASTITY JEAN [facility] Coronary arteriosclerosis Active 74346593 September 08, 2014 Entered By: PADMA LONG Comment: hx of ptca to RCA several yrs. 2014 Entered By: PADMA LONG Comment: heart cath 09/01/14, neg. 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 2014 Entered By: PADMA LONG Comment: per abdominal CT 09/01/14, [place] PADMA LONG [facility] Dry eyes Active 953379675 NEDA SHAW [facility] Gastro-esophageal reflux disease without esophagitis ( SNOMED CT 328057004) Active 211595101 ALF AMEZCUA [facility] History of malignant neoplasm of lung Active 656623700 TANK BARRETO [facility] Hyperlipidemia (SNOMED CT 19361388) Active 05308671 PMAELA RAMSEY [facility] Lung mass Active 994002594 September 08, 2014 E ntered By: PADMA LONG Comment: 4.5 cm mass, post. segment right upper lobe.September 08, 2014 Entered By: PADMA LONG Comment: mild adenopathy in mediastinum and bilat. hilaMay 2014 Entered By: PADMA LONG Comment: most likely related to lung cancerMay 2014 Entered By: PADMA LONG Comment: per ct angio of chest with contrast 09/01/14,[place] Entered By: PADMA LONG Comment: per path report- mod. differentiated bronchogenic adenoca. 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 Active 09845967 KATHERINE MATT [facility] Obesity Active 704877940 [facility] Obstructive sleep apnea syndrome (SNOMED CT 08219262) Active 619929 015 PHILIPPE DOUGLASS [facility] Pancreatic cyst Active 12240050 JAYLENE AMEZCUA [facility] Papilloma of right eyelid Active 627037010299766 NEDA SHAW [facility] Polyp of colon Active 93213287 Jan 23 Entered By: PADMA LONG Comment: c-scope 01/17/16, multiple benign colonic polypsMar 2017 Entered By: PADMA LONG Comment: c-scope,06/25/17,va [facility], three benign polyps- sigmoid colon, transverse colon,cecum. see path report cprs SHARRON TORRES [facility] Pulmonary emphysema Active 82281066 0 BRIANA LESLYE [facility] Sensorineural hearing loss, bilateral Active 515160370 TEDCHASTITY A [facility] Snoring Active 47953838 BULLOCKSONG [facility] Type 2 diabetes mellitus without complication Active 844860088 NEDA SHAW [facility] Environmental Allergies (ICD-9-CM 477.9) Inactive 477.9 Dec 18, 2017 PADMA LONG [facility] External hemorrhoids without mention of complication (ICD-9- CM 455.3) Inactive 455.3 Dec 18, 2017 PADMA LONG [facility] Impotence of organic origin (ICD-9-CM 607.84) Inactive 607.84 Dec 18, 2017 PADMA LONG [facility] Screening for Lipoid disorders (ICD-9-CM V77.91) Inactive V77.91 Jan 18, 2007 PADMA LONG [facility] Stye * (ICD-9-CM 373.11) Inactive 373.11 Dec 18, 8 Jan 18, 2007 Entered By: PADMA LONG Comment: bilat lower lids, chronic/recurrent PADMA LONG [facility] Tobacco Use Disorder, Continuous Inactive 305.1 Dec 18, 2017 Jan 18, 2007 Entered By: PADMA LONG Comment: one ppd PADMA LONG [facility] Radiology Reports: +/- 30 days of the encounter No Data Provided for This Section Pathology Reports: +/- 30 days of the encounter No Data Provided for This Section Encounter Notes: All associated encounter notes This section contains the clinical notes associated to the Encounter. Date/Time Encounter Note(s) Provider Source Nov 14, 2019 10:15 AM TELEPHONE ENCOUNTER NOTE: LOCAL TITLE: WI-TELEPHONE/SPECIALTY STANDARD TITLE: TELEPHONE ENCOUNTER NOTE DATE OF NOTE: NOV 14, 2019@10:15 ENTRY DATE: NOV 14, 2019@10:15:51 AUTHOR: DAYLIN WORLEY EXP COSIGNER: URGENCY: STATUS: COMPLETED WI-TELEPHONE/SPECIALTY Has ADDENDA Dx: Lung Cancer is calling requesting to have his upcoming CT done in Dec locally. After review of Chart noted that patient was seen by Oncologist in June, to have a 6 month f/u with a CT scan. order placed in [facility] , in addition a scan was ordered through [facility] requesting to be done in Dec however [facility] team scheduled Scan in SEPTEMBER. Please review Scan and/or reorder appropriate CT follow up through the community as Ponder is requesting for his LUng cancer. Alerting Provider to 's request. /gisell/ DAYLIN WORLEY RN/BSN Signed: 11/14/2019 11:04 Receipt Acknowledged By: 11/14/2019 11:28 /es/ MICHAEL BEE PA-C 11/19/2019 12:19 /es/ Tank Barreto MD Staff Oncologist 11/14/2019 ADDENDUM STATUS: COMPLETED Chart reviewed, patient CT chest/Abd/pelvis 10/07/2019 was stable. GI plan to do MRI of pancreas this month for pancreas lesion observation. Therefore, no additional CT is needed for oncology standpoint for December follow up. Will alert GI RN regarding MRI. /giesll/ MICHAEL CASSIDY PA-C Signed: 11/14/2019 11:34 Receipt Acknowledged By: * AWAITING SIGNATURE * DAYLIN WORLEY 11/14/2019 11:58 /gisell/ JA MARLEY RN 11/14/2019 ADDENDUM STATUS: COMPLETED Per Dr. Amezcua, the MRI is scheduled for February 06, 2020 in the Community. If MRI is needed sooner please advise. /gisell/ JA QUINN RN Signed: 11/14/2019 12:02 Receipt Acknowledged By: 11/14/2019 13:40 /es/ MICHAEL BEE PA-C 11/17/2019 07:24 /es/ ALF MORALEZ [facility] 11/26/2019 ADDENDUM STATUS: COMPLETED Pt called to report he has been having diarrhea, nausea, belching and intermittent stomach discomfort since he was dc'd from the [facility], on 11/10. Reports he was cece tom for COVID and results were negative. Reviewed GI plan of care notes with pt and inquired if he had contacted their clinic to update his s/s. Pt reported he had not but will call GI clinic today. /es/ SHANIQUA SCHMIDT RN Signed: 11/26/2019 10:43 Receipt Acknowledged By: * AWAITING SIGNATURE * MICHAEL CASSIDY Mckayla 11/26/2019 12:16 /es/ JA MARLEY RN * AWAITING SIGNATURE * ALF AMEZCUA 11/26/2019 ADDENDUM STATUS: COMPLETED I called this back and he stated that he collapsed a couple of weeks ago and was admitted to the Covid-ICU unit. He stated that he'd been constipated for months and after 3 full IV bags it finally "turned loose" and has now turned into diarrhea with nausea and vomiting. He stated that he's been having between 5-7 loose stools every day. He stated t hat he is following the BRAT diet now. He has a lot of belching. He states that when he does eat, he is able to keep it down at that moment. He stated that he has some abdominal cramping but only when he has the urge to have a bowel movement. I am requesting records from [facility]. This was to be scheduled for an MRI February 06, 2020, however, per Dr. Amezcua this needs to be moved up to December 2019. Comment has been placed on the original [facility] consult and [facility] RN's Tye Vargas and Bettye Dill have been alerted as well. I advised that I would alert Dr. Amezcua now. Ponder advised that if he doesn't hear back from me this afternoon that he would be going to immediate care in [place]. I advised that this would be a parry choice as this lives 3 hours away. (I spoke with our GI DRILLING MANAGER and he advised that it would not be unreasonable to go to immediate care, not only due to distance but also for possible viral infection) I also advised that I would call him back as soon as I knew something. Jayla is in agreement with this plan and has no other questions at this time. /es/ JA QUINN RN Signed: 11/26/2019 12:47 Receipt Acknowledged By: * AWAITING SIGNATURE * ALF AMEZCUA,DAYLIN BLAS [facility]
--- OUTSIDE RECORDS SUMMARY | 2019-12-02 07:53 | XMS REPORT | Encounter Summary ---
Author [facility] Department [facility] Organization [facility] Address [address] [place] [address] Phone Unavailable Care Team Providers Care State Assessed Properties Director Name Role Phone ADRIEL HERNANDEZ PCP Unavailable Insurance Providers: All historical and current No Data Provided for This Section Selected Encounter This section includes the information on record at [place] for the Encounter. 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 Date/Time Primary/Secondary Diagnosis Diagnosis Name Provider Source Nov 14, 2019 11:03 AM PRIMARY Congenital pancreatic cyst LEVON MUNGUIA [facility] Nov 14, 2019 11:03 AM SECONDARY Personal history o f malignant neoplasm of bronchus and lung LEVON CONWAY [facility] Plan of Treatment: Future Appointments (+ [...] appointme nts. The data comes from all [facility]. Appointment Date/Time Appointment Type Appointment Facili ty Name Jul 23, 2019 11:00 AM AMBULATORY - NONE [facility] Jul 25, 2019 08:00 AM AMBULATORY - NONE [facility] Aug 07, 2019 10:30 AM AMBULATORY - MEDICINE [facility] Sep 23, 2019 11:15 AM AMBULATORY - NONE [facility] Sep 23, 2019 11:30 AM AMBULATORY - MEDICINE [facility] Oct 07, 2019 09:15 AM AMBULATORY - NONE [facility], VIS[facility] 15 [...] the Encounter. The data comes from all [facility]. Test Date/Time Test Type Test Details Facility Name Jun 18, 2019 10:07 AM Consult Order [facility]-[id number] Cons Suction Worker's Choice [facility] Surgical Procedures: All associated to the encounter [...] Jun 25, 2019 10:48 AM [facility] CBC & DIFF Specimen Type: BLOOD [...] Jun 25, 2019 10:40 AM [facility] CA 19-9 Specimen Type: SERUM Comment: CA 19-9 This test was performed using the Siemens chemiluminescent method. Values obtained from different assay methods cannot be used inter- changeably. CA 19-9 levels, regardless of value, should not be interpreted as absolute evidence of the presence or absence of disease. CA 19-9 7 U/mL <34 Jun 25, 2019 10:40 AM [facility] COMPREHENSIVE METABOLI C PANEL Specimen Type: [...] Jun 25, 2019 10:40 AM [facility] CREATININE (INCLUDES E GFR) Specimen Type: [...] /min 3 223.8 lb 31 [facility] Immunizations: All administered on the encounter [...] QUIT 15 YRS OR MORE PORSHA BLAS [facility] Tobacco Use History This section includes a history of the smoking, or tobacco -related health factors, that were collected on or before the date of the Encoun ter. The data comes from the [place] facility where the Encounter took place. Date/Time Smoking Status/Tobacco Use Comment [facility] Jun 26, 2018 02:13 PM [place]-TOBACCO QUIT 15 YRS OR MORE PORSHA BLAS [facility] Jun 27, 2017 01:39 PM NON-TOBACCO USER [facility] Jun 27, 2017 01:16 PM NON-TOBACCO USER [facility] Jan 06, 2015 02:07 PM NON-TOBACCO USER [facility] Nov 23, 2014 10:38 AM NON-TOBACCO USER [facility] Oct 26, 2014 10:36 AM NON-TOBACCO USER [facility] Oct 14, 2014 11:09 AM NON-TOBACCO USER [facility] Advance Directives: All historical and current No Data Provided for This Section Allergies and Adverse Reactions (ADRs): All historical and current Section Date Range: From patient's date of to the date document was create d. This section includes Allergies and Adverse Reactions (ADR s) on record with [facility] for the patient. The data comes from a ll [place] treatment facilities. It does not list Allergies/ADRs that were removed or entered in error. Some allergies/ADRs may be reported in t he Immunization section. Allergen Event Date Event Type Reaction(s) Severity Source [place] September 08, 2014 Propensity to adverse reactions to drug (diso rder) [facility] [place] September 08, 2014 Propensity to adverse reactions to drug (diso rder) [facility] 15 Medications: VA dispensed (-15 months) and Non-VA Documented (Obtained Outside V A) Section Date Range: 1) prescriptions processed by a VA pharmacy in the last [address] [facility], and 2) all medications recorded in the [place] medical record as "non-VA medic ations". Pharmacy terms refer to [place] pharmacy's work on prescriptions. VA patient s [...] TEST BLOOD GLUCOSE 50 Dec 19, 2019 [id number] September 04, 2019 PAMELA RAMSEY ACCU-CHEK CHARLES PLUS (GLUCOSE) TEST STRIP Discontinued USE 1 STRIP FOR TESTING TWO TIMES PER WEEK - DIRECTED TO TEST BLOOD GLUCOSE 50 Jul 25, 2019 [id number] Nov 12, 2018 PAMELA RAMSEY ALBUTEROL SO4 90MCG/ACTUAT (CFC-F) INHL,ORAL,6.7GM Active INHALE 2 PUFFS BY ORAL INHALATION EVERY 4 HOURS NEEDED FOR BREATHING. SHAKE WELL. RINSE MOUTHPIECE FREQUENTLY TO PREVENT CLOGGING. USE NEEDED FOR SHORTNESS OF AIR/WHEEZING FOR BREATHING. SHAKE WELL. RINSE MOUTHPIECE FREQUENTLY TO PREVENT CLOGGING. USE NEEDED FOR SHORTNESS OF AIR/WHEEZING 1 Dec 19, 2019 [id number] September 04, 2019 PAMELA RAMSEY CBGUILLERMO ALCOHOL PREP PAD Active USE 1 PAD ON SKIN BIW TO CLEAN AND DISINFECT THE SKIN 200 Sep 29, 2020 [id number] Sep 30, 2019 CHUCHOPAMELLA FAUSTINLloyd [facility] ALCOHOL PREP PAD Discontinued USE 1 PAD ON SKIN BI W TO CLEAN AND DISINFECT THE SKIN 200 Dec 19, 2019 [id number] Jun 06, 2019 PAMELA RAMSEY ALCOHOL PREP PAD Discontinued USE 1 PAD ON SKIN BI W TO CLEAN AND DISINFECT THE SKIN 200 Jul 25, 2019 [id number] Nov 12, 2018 PAMELA RAMSEY ASCORBIC ACID 250MG TAB Non-VA TAKE ONE TABLET BY MOUTH ONCE A DAY Non-VA Documented by: SHANIQUA SCHMIDT nted at: [facility] ASPIRIN 25MG/DIPYRIDAMOLE 200MG CAP,SA Active T CHAPIN 1 CAPSULE BY MOUTH TWO TIMES A DAY - SWALLOW WHOLE. DO NOT CRUSH OR CHEW. FOR RECURRENT TIA/STROKE 180 Dec 19, 2019 [id number] Dec 20, 2018 PAMELA RAMSEY ASPIRIN 25MG/DIPYRIDAMOLE 200MG CAP,SA Discontinued T CHAPIN 1 CAPSULE BY MOUTH TWO TIMES A DAY - SWALLOW WHOLE. DO NOT CRUSH OR CHEW. FOR RECURRENT TIA/STROKE 180 Feb 06, 2019 [id number] Sep 28, 2018 ZACHARY GRECO [facility] ASPIRIN 81MG TAB,EC Non- [facility] TAKE ONE TABLET BY MOUTH ONCE A DAY Non-VA Documented by: PADMA LONG nted at: [facility] ATORVASTATIN CA 80MG TAB Active TAKE ONE TABLET BY MOUTH AT BEDTIME FOR CHOLESTEROL - REPORT ANY UNEXPLAINED MUSCLE PAIN/WEAKNESS TO YOUR PROVIDER 90 Dec 19, 2019 [id number] September 04, 2019 PAMELA RAMSEY ATORVASTATIN CA 80MG TAB Discontinued TAKE ONE TABLET BY MOUTH AT BEDTIME FOR CHOLESTEROL - REPORT ANY UNEXPLAINED MUSCLE PAIN/WEAKNESS TO YOUR PROVIDER 90 Dec 20, 2018 [id number] Nov 12, 2018 PAMELA RAMSEY BUDESONIDE 160MCG/FORMOTEROL FUM 4.5MCG/SPRAY INHL,ORAL,10.2 GM Active INHALE 2 PUFFS BY MOUTH TWO TIMES A DAY FOR BREATHING. SHAKE WELL. RINSE MOUTH AND SPIT AFTER EACH USE. 3 Apr 24, 2020 [id number] August 22, 2019 LISSA OATES [facility] CALCIUM/VITAMIN D TAB No n-VA TAKE BY MOUTH ONCE A DAY Non-V A Documented by: PADMA LONG nted at: [facility] CARBOXYMETHYLCELLULOSE NA 0.5% SOLN,OPH Active INSTILL ONE DROP IN BOTH EYES FOUR TIMES A DAY FOR DRY EYES 15 Feb 01, 2020 [id number] September 03 0 [facility]EDA SHAW [facility] DICLOFENAC NA 1% GEL,TOP Discontinued APPLY 2 GRAMS A FFECTED AREA TWO TIMES A DAY NEEDED FOR PAIN AND INFLAMMATION. DO NOT EXCEED 16GM DAILY TO ANY AFFECTED JOINT OF LOWER EXTREMITIES. DO NOT EXCEED 8GM DAILY TO ANY AFFECTED JOINT OF UPPER EXTREMITES. DO NOT EXCEED TOTAL DOSE OF 32GM DAILY FOR ALL JOINTS. 100 Oct 31, 2018 [id number] Oct 06, 2018 ANAYELI KIRKPATRICK [facility] DICLOFENAC NA 1% GEL,TOP APPLY 2 GRAMS A FFECTED AREA TWO TIMES A DAY NEEDED FOR PAIN AND INFLAMMATION. DO NOT EXCEED 16GM DAILY TO ANY AFFECTED JOINT OF LOWER EXTREMITIES. DO NOT EXCEED 8GM DAILY TO ANY AFFECTED JOINT OF UPPER EXTREMITES. DO NOT EXCEED TOTAL DOSE OF 32GM DAILY FOR ALL JOINTS. 100 Jan 17, 2019 [id number] Dec 20, 2018 PAMELA RAMSEY FLUTICASONE PROPIONATE 50MCG/SPRAY SOLN,NASAL,16GM Active INSTILL 1 SPRAY IN EACH NOSTRIL ONCE A DAY SHAKE GENTLY BEFORE USE! - MUST BE USED DIRECTED FOR 3 WEEKS TO PROVIDE BENEFIT. * NO EARLY REFILLS * 1UNIT = 30DAYS AT 4 PF/DAY OR 60DAYS AT 2PF/DAY 2 Dec 19, 2019 [id number] August 26, 2019 PAMELA RAMSEY KETOTIFEN 0.025% SOLN,OPH Active INSTILL 1 DROP IN BOTH EYES TWO TIMES A DAY FOR RELIEF OF ALLERGY SYMPTOMS IN EYE(S) Feb 01, 2020 [id number] September 04, 2019 [facility] SHAW [facility] LANCET,SOFTCLIX Active USE LANCET BIW FOR TESTING BL OOD GLUCOSE DIRECTED 100 Sep 29, 2020 [id number] Sep 30, 2019 [facility] LANCET,SOFTCLIX Discontinued USE LANCET BIW FO R TESTING BLOOD GLUCOSE DIRECTED 100 Dec 19, 2019 [id number] Jun 06, 2019 PAMELA RAMSEY LANCET,SOFTCLIX Discontinued USE LANCET BIW FO R TESTING BLOOD GLUCOSE DIRECTED Jul 25, 2019 [id number] Nov 12, 2018 PAMELA RAMSEY LISINOPRIL 40MG TAB Non- VA TAKE ONE-HALF TABLET BY MOUTH EVERY MORNING Non-VA Documented by: PAMELA RAMSEY nted at: [facility] LORATADINE/PSEUDOEPHEDRINE TAB,SA Non-VA TAKE BY MOUTH No n-VA Documented by: JUAN LANGume nted at: [facility] MAGNESIUM OXIDE 400MG TAB Non-VA TAKE ONE TABLET BY MOUTH ONCE A DAY Non-VA Documented by: SHANIQUA SCHMIDT nted at: [facility] METFORMIN HCL 500MG TAB Non-VA TAKE ONE TABLET BY MOUTH TWO TIMES A DAY WITH BREAKFAST AND EVENING MEAL Non-VA Documented by: SHANIQUA SCMHIDT nted at: [facility] MULTIVITAMINS CAP/TAB No n-VA TAKE 1 CAP/TAB BY MOUTH ONCE A DAY Non-VA Documented by: SHANIQUA SCHMIDT Docume nted at: [facility] OMEPRAZOLE 20MG CAP,EC Active TAKE 2 CAPSULES B Y MOUTH BEFORE BREAKFAST 30 MINUTES BEFORE EATING TO LOWER STOMACH ACID (REPLACES ACIPHEX) 180 Dec 19, 2019 [id number] August 26, 2019 PAMELA RAMSEY POLYETHYLENE GLYCOL [...] Documented by: KATHERINE MATT Docume nted at: [facility] PREGABALIN 150MG CAP,ORAL Non-VA TAKE 1 CAPSULE BY MOUTH TWO TIMES A DAY Non-VA Docume nted by: PAMELA RAMSEY Docume nted at: [facility] SEMAGLUTIDE INJ,SOLN Non -VA INJECT SUBCUTANEOUSLY EVERY WEEK Non-VA Documented by: ANAYELI KIRKPATRICK Docume nted at: [facility] TERBINAFINE HCL 1% CREAM,TOP Active APPLY LIGHT LY TO AFFECTED AREA TWO TIMES A DAY FOR INFECTION 90 Sep 23, 2020 [id number] Sep 24, 2019 ADRIEL HERNANDEZ UREA 20% CREAM,TOP Active APPLY LIGHTLY (20%) TO AFFECTED AREA TWO TIMES A DAY NEEDED TO PROMOTE HEALING,RUB IN UNTIL COMPLETELY ABSORBED*FOR TOPICAL USE ONLY* APPLY TO BOTH FEET DIRECTED. 90 Sep 25, 2020 [id number] Sep 26, 2019 ADRIEL HERNANDEZ Problems (Conditions): [...] Alcohol intake above recommended sensible limits Active [id number] PADMA LONG [facility] Allergic conjunctivitis Active 166393434 [place] [facility] Bilateral senile combined form cataracts of eyes Active [id number] 9108 COLINFACUNDONEDA J [facility] Bilateral tinnitus Active [id number] CHASTITY JEAN [facility] Coronary arteriosclerosis Active 74273692 September 08, 2014 Entered By: PADMA LONG Comment: hx of ptca to RCA several yrs. agoSeptember 08, 2014 Entered By: PADMA LONG Comment: heart cath 09/01/14, neg. / previous stent to RCA,, via abida meneses ks HATCHER, JENNEY R [facility] Diabetes mellitus Active 19060024 PAMELA RAMSEY [facility] Disorder of pancreas Active 6915867 September 08, 2014 Entered By: PADMA LONG Comment: 2.5cm low density lseion in bodyMay 2014 Entered By: PADMA LONG Comment: question of communication with pancreatic ductMay 2014 Entered By: PADMA LONG Comment: favored to be cystic pancreatic cancerMay 2014 Entered By: PADMA LONG Comment: per abdominal CT 09/01/14, via abida meneses,PADMA Pradhan [facility] Dry eyes Active 842738029 [place] Luda [facility] Gastro-esophageal reflux disease without esophagitis ( SNOMED CT 349228623) Active 807434619 ALF GUEVARA [facility] History of malignant neoplasm of lung Active 254322683 TANK BARRETO [facility] Hyperlipidemia (SNOMED CT 16219022) Active 83057493 PAMELA RAMSEY [facility] Lung mass Active 912958559 September 08, 2014 E ntered By: PADMA [...] differentiated bronchogenic adenoca. 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 Active 08094912 KATHERINE MATT [facility] Obesity Active 299349521 [facility] Obstructive sleep apnea syndrome (SNOMED CT 25125199) Active 357588 015 [place] [facility] Pancreatic cyst Active 10579985 JAYLENE GUEVARA [facility] Papilloma of right eyelid Active 929906674778211 NEDA SHAW [facility] Polyp of colon Active 87474737 Jan 23 16 Entered By: PADMA LONG Comment: c-scope 01/17/16, multiple benign colonic polypsJun 28, 2017 Entered By: PADMA LONG Comment: c-scope,06/25/17,[facility], three benign polyps- sigmoid colon, transverse colon,cecum. see path report cprs SHARRON TORRES [facility] Pulmonary emphysema Active 90431029 0 BRIANA GAVIN [facility] Sensorineural hearing loss, bilateral Active 697558191 CHASTITY JEAN [facility] Snoring Active 35432232 SONG BULLOCK [facility] Type 2 diabetes mellitus without complication Active 465611200 NEDA SHAW [facility] Environmental Allergies (ICD-9-CM 477.9) Inactive 477.9 Dec 18, 2017 PADMA LONG [facility] External hemorrhoids without mention of complication (ICD-9- CM 455.3) Inactive 455.3 Dec 18, 2017 PADMA LONG [facility] Impotence of organic origin (ICD-9-CM 607.84) Inactive 607.84 Dec 18, 2017 PADMA LONG [facility] Screening for Lipoid disorders (ICD-9-CM V77.91) Inactive V77.91 Jan 18, 2007 PADMA LONG [facility] Stye * (ICD-9-CM 373.11) Inactive 373.11 Dec 18, 201 8 Jan 18, 2007 Entered By: PADMA LONG Comment: bilat lower lids, chronic/recurrent PADMA LONG [facility] Tobacco Use Disorder, Continuous Inactive 305.1 Dec 18, 2017 Jan 18, 2007 Entered By: PADMA LONG Comment: one ppd PADMA LONG [facility] Radiology Reports: +/- 30 days of [...] of the Encounter. The data comes from [facility] treatment facilities. Date/Time Radiology Report Provider Source Jun 25, 2019 10:[address] CHEST/THORAX W/CONT: HERBERTH BOB [id number] -[id number] M Exm Date: JUN 25, 2019@10:47 Req Phys: TANK BARRETO Pat Loc: [place]-ONCOLOGY 3 (Req'g Loc) Img Loc: [place]-CT (RAD) Service: Unknown (Case [id number] COMPLETE) CT CHEST/THORAX W/C ONT (CT Detailed) CPT:20047 Contrast Media : Non-ionic Iodinated Reason for Study: annual survellance Clinical History: NSCLCA hx Report Status: Verified Date Reported: JUN 25, 2019 Date Verified: JUN 25, 2019 Dry Cans Operator E-Sig: Report: INDICATION: annual survellance non-small cell [...] NEEDED Primary Interpreting Staff: RALPH GUZMAN, Radiologist (Dry Cans Operator, no e-sig) /RALPH MORLEY [facility] BRYAN 15 Jun 25, 2019 10:[address] ABD & PELV W/CONTRAST: HERBERTH BOB [id number] -[id number] M Ex Date: JUN 25, 2019@10:47 Req Phys: TANK BARRETO Loc: [place]-ONCOLOGY 3 (Req'g Loc) Img Loc: [place]-CT (RAD) Service: Unknown (Case [id number] COMPLETE) CT ABD & PELV W/CON TRAST (CT Detailed) CPT:92927 Contrast Media : Non-ionic Iodinated Reason for Study: surveillance Clinical History: NSCLCA hx Report Status: Verified Date Reported: JUN 25, 2019 Date Verified: JUN 25, 2019 Dry Cans Operator E-Sig: Report: INDICATION: surveillance non-small cell lung [...] REQUIRED Primary Interpreting Staff: RALPH GUZMAN, Radiologist (Dry Cans Operator, no e-sig) /RALPH MORLEY [facility] 15 Pathology Reports: +/- 30 days of [...] 10:48) LYMPH %: 26.3 (06/25/19 10:48) LYMPH,ABS:2.1 (03/04/20 10:48) LYMPHS: 15 (12/18/16 08:30) MCH: 27.1 [...] Staff Oncologist Signed: 06/25/2019 15:29 TANK BARRETO [facility] Jun 25, 2019 02:15 PM NURSING OUTPATIENT NOTE: LOCAL TITLE: WI-SPECIALTY PRE-APPT STANDARD TITLE: NURSING OUTPATIENT NOTE DATE OF NOTE: JUN 25, 2019@14:15 ENTRY DATE: JUN 25, 2019@14:15:17 AUTHOR: MORRIS BHAT COSIGNER: URGENCY: STATUS: COMPLETED WI-PATIENT EDUCATION: Patient [...] BHAT LPN Signed: 06/25/2019 14:17 MORRIS BHAT [facility]
--- OUTSIDE RECORDS SUMMARY | 2019-12-02 07:54 | XMS REPORT | Encounter Summary ---
Author Author [facility] Organization Department of [facility] Affai Address [address] [place] [address] Phone Unavailable Care Team Providers Care Circuit Board Drafter Name Role Phone ADRIEL HERNANDEZ PCP Unavailable Insurance Providers: All historical and current No Data Provided for This Section Selected Encounter This section includes the information on record at [place] for the Encounter. Date/Time Encounter Type Encounter Description Reason Provider Source Nov 11, 2019 03:18 PM Outpatient Encounter TELEPHONE/MEDICINE IC [id number] Hypoxemia with Provider Comments: Hypoxemia SALOMON ESTEVEZ [facility] IHE Encounter Template Text not used by [place] Assessments - Encounter Diagnoses This section includes the primary and secondary diag noses documented for the Encounter. Date/Time Primary/Secondary Diagnosis Diagnosis Name Provider Source Nov 11, 2019 03:18 PM PRIMARY Hypoxemia SALOMON ESTEVEZ [facility] Plan of Treatment: Future Appointments (+ [...] 11:00 AM AMBULATORY - NONE ARTUR BLAS [facility] Dec 31, 2019 01:15 PM AMBULATORY - MEDICINE ARTUR BLAS [facility] Dec 31, 2019 01:16 PM AMBULATORY - MEDICINE ARTUR BLAS [facility] Jan 01, 2020 09:00 AM AMBULATORY - MEDICINE ARTUR BLAS [facility] Jan 07, 2020 12:00 PM AMBULATORY - MEDICINE [facility] Jan 27, 2020 01:00 PM [facility] Mar 31, 2020 09:30 AM AM[facility]ULAT[facility] - MEDICINE [facility] Mar 31, 2020 09:31 AM AMBULATORY - MEDICINE ARTUR BLAS [facility] Mar 31, 2020 10:00 AM AMBULATORY - MEDICINE [facility] Mar 31, 2020 10:01 AM AMBULATORY - MEDICINE ARTUR BLAS [facility] Apr 07, 2020 08:00 AM AMBULATORY - NONE [facility] Active, Pending, and Scheduled Orders This [...] the Encounter. The data comes from all [facility] facilities. Test Date/Time Test Type Test Details Facility Name Nov 17, 2019 07:23 AM Consult Order [id number] Cons Order Selector's Choice ATRUR BLAS [facility] Dec 15, 2019 12:00 AM Laboratory - Chemistry Order CREATININ E (INCLUDES EGFR) GREEN TOP TUBE PLASMA SP [facility] [place] [facility] Surgical Procedures: All associated to the [...] 15 YRS OR MORE PORSHA BLAS [facility] Tobacco Use History This section includes a history of the smoking, or tobacco -related health factors, that were collected on or before the date of the Encoun ter. The data comes from the [place] facility where the Encounter took place. Date/Time Smoking Status/Tobacco Use Comment [facility] Jun 26, 2018 02:13 PM VA-TOBACCO QUIT 15 YRS OR MORE PORSHA BLAS [facility] Jun 27, 2017 01:39 PM NON-TOBACCO [...] to drug (diso rder) [facility] 15 PLAVIX September 08, 2014 Propensity to adverse reactions to drug (diso rder) [facility] 15 Medications: VA dispensed (-15 months) and Non-VA Documented (Obtained Outside V A) Section Date Range: 1) prescriptions processed by a VA pharmacy in the last 15 m [facility], and 2) all medications [...] TEST BLOOD GLUCOSE 50 Dec 19, 2019 [id number] September 04, 2019 PAMELA RAMSEY ACCU-CHEK CHARLES PLUS (GLUCOSE) TEST STRIP Discontinued USE 1 STRIP FOR TESTING TWO TIMES PER WEEK - DIRECTED TO TEST BLOOD GLUCOSE 50 Jul 25, 2019 [id number] Nov 12, 2018 PAMELA RAMSEY CB ALBUTEROL SO4 90MCG/ACTUAT (CFC-F) INHL,ORAL,6.7GM Active INHALE 2 PUFFS BY ORAL INHALATION EVERY 4 HOURS NEEDED FOR BREATHING. SHAKE WELL. RINSE MOUTHPIECE FREQUENTLY TO PREVENT CLOGGING. USE NEEDED FOR SHORTNESS OF AIR/WHEEZING FOR BREATHING. SHAKE WELL. RINSE MOUTHPIECE FREQUENTLY TO PREVENT CLOGGING. USE NEEDED FOR SHORTNESS OF AIR/WHEEZING 1 Dec 19, 2019 [id number] September 04, 2019 PAMELA RAMSEY ALCOHOL PREP PAD Active USE 1 PAD ON SKIN BIW TO CLEAN AND DISINFECT THE SKIN 200 Sep 29, 2020 [id number] Sep 30, 2019 MAURICIO RANKIN [facility] ALCOHOL PREP PAD Discontinued USE 1 PAD ON SKIN BI W TO CLEAN AND DISINFECT THE SKIN 200 Dec 19, 2019 [id number] Jun 06, 2019 PAMELA RAMSEY ALCOHOL PREP PAD Discontinued USE 1 PAD ON SKIN BI W TO CLEAN AND DISINFECT THE SKIN 200 Jul 25, 2019 [id number] Nov 12, 2018 PAMELA RAMSEY ASCORBIC ACID 250MG TAB Non-VA TAKE ONE TABLET BY MOUTH ONCE A DAY Non-VA Documented by: SHANIQUA SCHMIDT nted at: [facility] ASPIRIN 25MG/DIPYRIDAMOLE 200MG CAP,SA Active T CHAPIN 1 CAPSULE BY MOUTH TWO TIMES A DAY - SWALLOW WHOLE. DO NOT CRUSH OR CHEW. FOR RECURRENT TIA/STROKE 180 Dec 19, 2019 [id number] Dec 20, 2018 PAMELA RAMSEY [facility] ASPIRIN 25MG/DIPYRIDAMOLE 200MG CAP,SA Discontinued T CHAPIN 1 CAPSULE BY MOUTH TWO TIMES A DAY - SWALLOW WHOLE. DO NOT CRUSH OR CHEW. FOR RECURRENT TIA/STROKE 180 Feb 06, 2019 [id number] Sep 28, 2018 ZACHARY GRECO V [facility] ASPIRIN 81MG TAB,EC Non- VA TAKE ONE TABLET BY MOUTH ONCE A DAY Non-VA Documented by: PADMA LONG nted at: [facility] ATORVASTATIN CA 80MG TAB Active TAKE ONE TABLET BY MOUTH AT BEDTIME FOR CHOLESTEROL - REPORT ANY UNEXPLAINED MUSCLE PAIN/WEAKNESS TO YOUR PROVIDER 90 Dec 19, 2019 [id number] September 04, 2019 PAMELA RAMSEY GUILLERMO ATORVASTATIN CA 80MG TAB Discontinued TAKE ONE TABLET BY MOUTH AT BEDTIME FOR CHOLESTEROL - REPORT ANY UNEXPLAINED MUSCLE PAIN/WEAKNESS TO YOUR PROVIDER 90 Dec 20, 2018 [id number] Nov 12, 2018 PAMELA RAMSEY CB BUDESONIDE 160MCG/FORMOTEROL FUM 4.5MCG/SPRAY INHL,ORAL,10.2 GM Active INHALE 2 PUFFS BY MOUTH TWO TIMES A DAY FOR BREATHING. SHAKE WELL. RINSE MOUTH AND SPIT AFTER EACH USE. 3 Apr 24, 2020 [id number] August 22, [address] [facility] CALCIUM/VITAMIN D TAB No n-VA TAKE BY MOUTH ONCE A DAY Non-V A Documented by: PADMA LONG nted at: [facility] CARBOXYMETHYLCELLULOSE NA 0.5% SOLN,OPH Active INSTILL ONE DROP IN BOTH EYES FOUR TIMES A DAY FOR DRY EYES 15 Feb 01, 2020 [id number] September 03 0 [facility] DICLOFENAC NA 1% GEL,TOP Discontinued APPLY 2 GRAMS A FFECTED AREA TWO TIMES A DAY NEEDED FOR PAIN AND INFLAMMATION. DO NOT EXCEED 16GM DAILY TO ANY AFFECTED JOINT OF LOWER EXTREMITIES. DO NOT EXCEED 8GM DAILY TO ANY AFFECTED JOINT OF UPPER EXTREMITES. DO NOT EXCEED TOTAL DOSE OF 32GM DAILY FOR ALL JOINTS. 100 Oct 31, 2018 [id number] Oct 06, [address] [facility] DICLOFENAC NA 1% GEL,TOP APPLY 2 GRAMS A FFECTED AREA TWO TIMES A DAY NEEDED FOR PAIN AND INFLAMMATION. DO NOT EXCEED 16GM DAILY TO ANY AFFECTED JOINT OF LOWER EXTREMITIES. DO NOT EXCEED 8GM DAILY TO ANY AFFECTED JOINT OF UPPER EXTREMITES. DO NOT EXCEED TOTAL DOSE OF 32GM DAILY FOR ALL JOINTS. 100 Jan 17, 2019 [id number] Dec 20, 2018 PAMELA RAMSEY FLUTICASONE PROPIONATE 50MCG/SPRAY SOLN,NASAL,16GM Active INSTILL 1 SPRAY IN EACH NOSTRIL ONCE A DAY SHAKE GENTLY BEFORE USE! - MUST BE USED DIRECTED FOR 3 WEEKS TO PROVIDE BENEFIT. * NO EARLY REFILLS * 1UNIT = 30DAYS AT 4 PF/DAY OR 60DAYS AT 2PF/DAY 2 Dec 19, 2019 [id number] August 26, 2019 PAMELA RAMSEY KETOTIFEN 0.025% SOLN,OPH Active INSTILL 1 DROP IN BOTH EYES TWO TIMES A DAY FOR RELIEF OF ALLERGY SYMPTOMS IN EYE(S) 10 Feb 01, 2020 [id number] September 04, 2019 [facility] LANCET,SOFT[facility] Active USE LANCET BIW FOR TESTING BL OOD GLUCOSE DIRECTED Sep 29, 2020 [id number] Sep 30, 2019 MAURICIO RANKIN LANCET,SOFTCLIX Discontinued USE LANCET BIW FO R TESTING BLOOD GLUCOSE DIRECTED Dec 19, 2019 [id number] Jun 06, 2019 PAMELA RAMSEY LANCET,SOFTCLIX Discontinued USE LANCET BIW FO R TESTING BLOOD GLUCOSE DIRECTED 100 Jul 25, 2019 [id number] Nov 12, 2018 PAMELA RAMSEY LISINOPRIL 40MG TAB Non- VA TAKE ONE-HALF TABLET BY MOUTH EVERY MORNING Non-VA Documented by: PAMELA RAMSEY nted at: [facility] LORATADINE/PSEUDOEPHEDRINE TAB,SA Non-VA TAKE BY MOUTH No n-VA Documented by: JUAN LANG Docume nted at: ARTUR BLAS [facility] MAGNESIUM OXIDE 400MG TAB Non-VA TAKE [...] ACID (REPLACES ACIPHEX) 180 Dec 19, 2019 [id number] August 26, 2019 PAMELA RAMSEY POLYETHYLENE GLYCOL [...] Non-VA Documented by: KATHERINE MATT nted at: [facility] PREGABALIN 150MG CAP,ORAL Non-VA TAKE 1 CAPSULE BY MOUTH TWO TIMES A DAY Non-VA Docume nted by: PAMELA RAMSEY nted at: [facility] SEMAGLUTIDE INJ,SOLN Non -VA INJECT SUBCUTANEOUSLY EVERY WEEK Non-VA Documented by: ANAYELI KIRKPATRICKume nted at: [facility] TERBINAFINE HCL 1% CREAM,TOP Active APPLY LIGHT LY TO AFFECTED AREA TWO TIMES A DAY FOR INFECTION 90 Sep 23, 2020 [id number] Sep 24, 2019 ADRIEL HERNANDEZ CB UREA 20% CREAM,TOP Active APPLY LIGHTLY (20%) TO AFFECTED AREA TWO TIMES A DAY NEEDED TO PROMOTE HEALING,RUB IN UNTIL COMPLETELY ABSORBED*FOR TOPICAL USE ONLY* APPLY TO BOTH FEET DIRECTED. 90 Sep 25, 2020 [id number] Sep 26, 2019 ADRIEL HERNANDEZ [facility] Problems (Conditions): All historical and current Section Date Range: From patient's date of to the date document was create d. This section includes a list of Problems (Conditions) know n to [place] for the patient. It includes both active and inacti ve problems (conditions). The data comes from all [place] treatment facilities. Problem Status Problem Code Date of Onset Date of Resolution Comm ent(s) Provider Source Alcohol intake above recommended sensible limits Active [id number] PADMA LONG [facility] Allergic conjunctivitis Active 363384735 [facility] Bilateral senile combined form cataracts of eyes Active [id number] [facility] Bilateral tinnitus Active 2831030824538 CHASTITY JEAN [facility] Coronary arteriosclerosis Active 89788008 September 08, 2014 Entered By: PADMA LONG Comment: hx of ptca to RCA several yrs. agoSeptember 08, 2014 Entered By: PADMA LONG Comment: heart cath 09/01/14, neg. / previous stent to RCA,, via abida meneses [place] HATCHER, JENNEY R [facility] Diabetes mellitus Active 93226961 PAMELA RAMSEY [facility] Disorder of pancreas Active 8566086 September 08, 2014 Entered By: PADMA LONG Comment: 2.5cm low density lseion in bodyMay 2014 Entered By: PADMA LONG Comment: question of communication with pancreatic ductMa2014 Entered By: PADMA LONG Comment: favored to be cystic pancreatic cancerSeptember 08, 2014 Entered By: PADMA LONG Comment: per abdominal CT 09/01/14, via [place]ary meneses[place], [place] PADMA LONG [facility] Dry eyes Active 376347460 [place] [facility] Gastro-esophageal reflux disease without esophagitis ( SNOMED CT 178002801) Active 203948786 ALF GUEVARA [facility] History of malignant neoplasm of lung Active 653233521 CHAPO BARRETO [facility] Hyperlipidemia (SNOMED CT 29645851) Active 22253736 PAMELA RAMSEY [facility] Lung mass Active 050002516 September 08, 2014 E ntered By: PADMA LONG Comment: 4.5 cm mass, post. segment right upper lobe.September 08, 2014 Entered By: PADMA LONG Comment: mild adenopathy in mediastinum and bilat. hilaMay 2014 Entered By: PADMA LONG Comment: most likely related to lung cancerMay 2014 Entered By: PADMA LONG Comment: per ct angio of chest with contrast 09/01/14,via abida menesestnJun 2014 Entered By: PADMA LONG Comment: per path report- mod. differentiated bronchogenic adenoca. 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 Active 28806964 KATHERINE MATT [facility] Obesity Active 786980614 SONG BULLOCK [facility] Obstructive sleep apnea syndrome (SNOMED CT 35465405) Active 580461 015 [place] [facility] Pancreatic cyst Active 52310674 JAYLENE GUEVARA [facility] Papilloma of right eyelid Active [id number] [place] [facility] Polyp of colon Active 70411340 Jan 23 16 Entered By: PADMA LONG Comment: c-scope 01/17/16, multiple benign colonic polypsJun 28, 2017 Entered By: PADMA LONG Comment: c-scope,06/25/17,[facility], three benign polyps- sigmoid colon, transverse colon,cecum. see path report cprs SHARRON TORRES [place] THAYER [facility] Pulmonary emphysema Active 79797479 0 BRIANA LESLYE Juan M [facility] Sensorineural hearing loss, bilateral Active 646860914 CHASTITY JEAN [facility] Snoring Active 34516608 SONG BULLOCK [facility] Type 2 diabetes mellitus without complication Active 642150151 [place] [facility] Environmental Allergies (ICD-9-CM 477.9) Inactive 477.9 Dec 18, 2017 [facility] External hemorrhoids without mention of complication (ICD-9- CM 455.3) Inactive 455.3 Dec 18, 2017 [facility] Impotence of organic origin (ICD-9-CM 607.84) Inactive 607.84 Dec 18, 2017 [facility] Screening for Lipoid disorders (ICD-9-CM V77.91) Inactive V77.91 Jan 18, 2007 [facility] Stye * (ICD-9-CM 373.11) Inactive 373.11 Dec 18, 201 8 Jan 18, 2007 Entered By: PADMA LONG Comment: bilat lower lids, chronic/recurrent [facility]ADMA LONG [facility] Tobacco Use Disorder, Continuous Inactive 305.1 Dec 18, 2017 Jan 18, 2007 Entered By: PADMA LONG Comment: one ppd PADMA LONG [facility] Radiology Reports: +/- 30 days of the encounter No Data Provided for This Section Pathology Reports: +/- 30 days of the encounter No Data Provided for This Section Encounter Notes: All associated encounter notes This section contains the clinical notes associated to the Encounter. Date/Time Encounter Note(s) Provider Source Nov 11, 2019 03:05 PM HOME HEALTH NOTE: [facility] STANDARD TITLE: HOME HEALTH NOTE DATE OF NOTE: NOV 11, 2019@15:05 ENTRY DATE: NOV 11, 2019@15:34:30 AUTHOR: SALOMON ESTEVEZ EXP COSIGNER: SONG BULLOCK URGENCY: STATUS: COMPLETED PATIENT BEING DISCHARGED FROM [facility] TODAY. ALL BELOW DATA FAXED TO THIS AUTHOR BY BOBBY DANIELLE, KARTIK ([phone]) PATIENT TO FOLLOW UP WITH THIS CLINIC IN 30-60 DAYS. Report will be communicated via CPRS Notification to the requesting provider. CAN SCORE: 70 PALLIATIVE CARE CONSULT PLACED: No DIAGNOSIS: Hypoxemia CURRENTLY SMOKING: n/a Is currently on home oxygen with an outside company? No ABG FINDINGS: N/A SPO2 ROOM AIR - AT REST: 92% WITH EXERCISE: 86% Pt walked 500 feet SPO2 on 2LPM OF SUPPLEMENTAL OXYGEN WITH EXERCISE: 92% TYPE I: Concentrator, Portable and Backup Prescription Data: 2Lpm w/Activity Oxygen Delivery VIA: Nasal Cannula PATIENT EDUCATION: Patient educated on the health risk of smoking. Patient given the Home Oxygen Safety & Information pamphlet Date of Discharge (mandatory 24 hours notice required): 11/11/2019 Date required: 11/11/2019 PATIENT TO USE HUMIDIFIER NEEDED. NOTE: Patient will be instructed in the proper use and safety measures of equipment by vendor per contract. Contact information for the Home Oxygen clinic given to and encouragement to call with any questions or concerns. /gisell/ SALOMON ESTEVEZ Registered Respiratory Therapist Signed: 11/11/2019 15:36 /gisell/ SONG BULLOCK STAFF PHYSICIAN/CELLULAR BIOLOGIST Cosigned: 11/11/2019 17:[address] [facility]
--- OUTSIDE RECORDS SUMMARY | 2019-12-02 07:57 | XMS REPORT ---
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 Name Role Phone Migration, Doctor Unavailable Unavailable PROBLEMS Type Condition ICD9-CM Code [id number] Code Onset Dates Condition S tatus SNOMED Code Problem Atherosclerotic heart diseas e of [place] coronary artery without angina pectoris I25.10 Active [id number] Problem Type 2 diabetes mellitus without complications E11 .9 Active 274003162 Problem Type 2 diabetes mellitus with foot ulcer E11.621 Active 474924549 Problem Neuropathy G62.9 Active 504289844 Problem Bilateral tinnitus H93.13 Active 4 893652891117 Problem Controlled type 2 diabetes m ellitus without complication, without long- term current use of insulin E11.9 Active 700111945 Problem Tinnitus of left ear H93.12 Active 8439402828940 Problem Seasonal allergic rhinitis due to other allergic trigger J30.89 Active 990406440 Problem Type 2 diabetes mellitus with hyperglycemia E11.65 Active 523698689370124 Problem Observed sleep apnea G47.30 Active 73277326 Problem Type 2 diabetes mellitus wit h diabetic neuropathy, without long-term current use of insulin E11.40 Active 72981 006 Problem Hypertension, benign I10 Active 94049587 Problem Type 2 diabetes 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.49 Active 20858215 Problem Elevated white blood cell count, unspecified D72.8 29 Active 371795506 Problem Simple chronic bronchitis J41.0 Acti ve 06650013 Problem Tinnitus of both ears H93.13 Active 1527996775938 Problem Essential (primary) hypertension I10 Active 44167326 Problem Cerebrovascular accident (CVA) due to em bolism of other cerebral artery I63.49 Active 609515073 Problem Altered mental status R41.82 Active 801254453 Problem Gastroesophageal reflux disease with esophagitis K 21.0 Active 662913669 Problem Other elevated white blood cell (WBC) count D72.82 8 Active 581496203 ALLERGIES No Information ENCOUNTERS Encounter Location Date Diagnosis [facility] [address] [facility] [id number] [address] [place] [address] Jan, [facility] [address] [facility] [id number] [address] [place] [address] Oct, [facility] [address] [facility] [id number] [address] [place] [address] Oct, Simple chronic bronchitis J4 1.0 [facility] [address] [facility] [id number] [address] [place] [address] Oct, Type 2 diabetes mellitus wit hout complications E11.9 [facility] [address] [facility] [id number] [address] [place] [address] Sep, Encounter for screening labo ratory testing for COVID-19 virus Z11.59 [facility] [address] [facility] [id number] [address] [place] [address] Sep, [facility] [address] [place] [id number] [address] [place] [address] Sep, Type 2 diabetes mellitus wit hout complications E11.9 [facility] [address] [place] [id number] [address] [place] [address] Sep, [facility] [address] [place] [id number] [address] [place] [address] Sep, Essential (primary) hyperten felecia I10 [place] [address] [facility] [id number] [address] [place] [address] August, Type 2 diabetes mellitus wit hout complications E11.9 [facility] [address] [facility] [id number] [address] [place] [address] Jul, Essential (primary) hyperten felecia I10 and Type 2 diabetes mellitus without complications E11.9 [facility] [address] [facility] [id number] [address] [place] [address] Jun, Type 2 diabetes mellitus wit hout complications E11.9 [place] [address] [place] [id number] [address] [place] [address] Jun, [facility] [address] [id number] [address] [place] [address] Jun, Type 2 diabetes mellitus wit hout complications E11.9 [facility] [address] [id number] [address] [place] [address] Jun, [facility] [address] [id number] [address] [place] [address] May, [facility] [address] [id number] [address] [place] [address] May, Type 2 diabetes mellitus wit hout complications E11.9 [facility] [address] [id number] [address] [place] [address] Mar, Neuropathy G62.9 [facility] [address] [id number] [address] [place] [address] Mar, [facility] [address] [id number] [address] [place] [address] Dec, [facility] [address] [id number] [address] [place] [address] Nov, Actinic keratoses L57.0 [facility] [address] [id number] [address] [place] [address] Nov, [facility] [address] [id number] [address] [place] [address] Nov, Type 2 diabetes mellitus wit hout complications E11.9 [facility] [address] [id number] [address] [place] [address] Oct, Controlled type 2 diabetes m ellitus without complication, without long-term current use of insulin E11.9 [facility] [address] [id number] [address] [place] [address] Oct, [facility] [address] [id number] [address] [place] [address] Oct, [facility] [address] [id number] [address] [place] [address] 17 Oct, 2018 Controlled type 2 diabetes m ellitus without complication, without long-term current use of insulin E11.9 [facility] [address] [facility] [id number] [address] [place] [address] 17 Oct, 2018 Essential (primary) hyperten felecia I10 ; Type 2 diabetes mellitus without complications E11.9 ; Actinic keratoses L57.0 and Seborrheic keratoses L82.1 [facility] [address] [facility] [id number] [address] [place] [address] Oct, [facility] [address] [facility] [id number] [address] [place] [address] Sep, Hypertension, benign I10 and Controlled type 2 diabetes mellitus without complication, without long-term current use of insulin E11.9 [place] [address] [facility] [id number] [address] [place] [address] Sep, Other elevated white blood c ell (WBC) count D72.828 [place] [address] [facility] [id number] [address] [place] [address] August, Neuropathy G62.9 [place] [address] [facility] [id number] [address] [place] [address] August, Other elevated white blood c ell (WBC) count D72.828 [place] [address] [facility] [id number] [address] [place] [address] August, Type 2 diabetes mellitus wit h foot ulcer E11.621 [facility] [address] [facility] [id number] [address] [place] [address] Jul, [facility] [address] [facility] [id number] [address] [place] [address] Jul, Neuropathy G62.9 [facility] [address] [facility] [id number] [address] [place] [address] Jun, [facility] [address] [place] [id number] [address] [place] [address] Jun, Neuropathy G62.9 [place] [address] [facility] [id number] [address] [place] [address] May, Neuropathy G62.9 [place] [address] [facility] [id number] [address] [place] [address] Mar, Type 2 diabetes mellitus wit hout complications E11.9 [place] [address] [place] [id number] [address] [place] [address] Feb, Neuropathy G62.9 [place] [address] [facility] [id number] [address] [place] [address] Feb, Actinic keratoses L57.0 [place] [address] [facility] [id number] [address] [place] [address] 09 Feb, 2018 Type 2 diabetes mellitus wit hout complications E11.9 ; Tobacco abuse Z72.0 ; Tobacco abuse counseling Z71.6 and Atherosclerotic heart disease of [place] coronary artery without angina pectoris I25.10 [place] [address] [place] [id number] [address] [place] [address] 08 Feb, 2018 Type 2 diabetes mellitus wit hout complications E11.9 ; Tobacco abuse Z72.0 ; Tobacco abuse counseling Z71.6 ; Atherosclerotic heart disease of [place] coronary artery without angina pectoris I25.10 ; Seborrheic keratoses L82.1 and Gastroesophageal reflux disease with esophagitis K21.0 [facility] [address] [place] [id number] [address] [place] [address] Jan, Abscess L02.91 [place] [address] [facility] [id number] [address] [place] [address] Jan, Neuropathy G62.9 [place] [address] [place] [id number] [address] [place] [address] Dec, Neuropathy G62.9 ; Cerebrova scular accident (CVA) due to embolism of other cerebral artery I63.49 and Seasonal allergic rhinitis due to other allergic trigger J30.89 [facility] [address] [address] 10 Dec, 2017 Altered mental status R41.82 [place] [address] [address] 16 Nov, 2017 Type 2 diabetes mellitus wit h diabetic neuropathy, without long- term current use of insulin E11.40 [place] [address] [address] 17 Oct, 2017 Neuropathy G62.9 ; Type 2 di abetes mellitus with other diabetic neurological complication E11.49 ; Type 2 diabetes mellitus with hyperglycemia E11.65 ; Actinic keratoses L57.0 and Observed sleep apnea G47.30 [place] [address] [address] Sep, Tinnitus of both ears H93.13 and Actinic keratitis, unspecified laterality H16.139 [place] [address] [address] August, Type 2 diabetes mellitus wit hout complications E11.9 and Controlled type 2 diabetes mellitus without complication, without long-term current use of insulin E11.9 [place] [address] [address] August, Seborrheic keratoses L82.1 a nd Tinnitus of left ear H93.12 [place] [address] [address] Jul, Controlled type 2 diabetes m ellitus without complication, without long-term current use of insulin E11.9 ; Seborrheic keratoses L82.1 ; Bilateral tinnitus H93.13 and Seasonal allergic rhinitis due to other allergic trigger J30.89 [facility] [id number] [place] [id number] May, Encounter for dental examina tion Z01.20 [facility] [address] [place] [id number] [address] [place] [id number] Jan, Encounter for dental examina tion Z01.20 [place] [address] [id number] [address] [place] [address] Jan, Type 2 diabetes mellitus wit hout complications E11.9 and Acute non- recurrent maxillary sinusitis J01.00 [facility] [address] [id number] [address] [place] [address] Dec, Right ear impacted cerumen H 61.21 and Acute suppurative otitis media of right ear without spontaneous rupture of tympanic membrane, recurrence not specified H66.001 [facility] [address] [id number] [address] [place] [address] Nov, Type 2 diabetes mellitus wit hout complications E11.9 and Neuropathy G62.9 [facility] [address] [id number] [address] [place] [address] [phone] Oct, Encounter for dental examina tion Z01.20 [facility] [address] [id number] [address] [place] [address] [id number] Jun, Dental examination Z01.20 [facility] [address] [id number] [address] [place] [address] 16 Jun, 2016 Atherosclerotic heart diseas e of [place] coronary artery without angina pectoris I25.10 [facility] [address] [id number] [address] [place] [address] Jun, Atherosclerotic heart diseas e of [place] coronary artery without angina pectoris I25.10 [facility] [address] [id number] [address] [place] [address] Jun, Type 2 diabetes mellitus wit hout complications E11.9 [facility] [address] [id number] [address] [place] [address] [id number] May, Encounter for dental examina tion Z01.20 [facility] [address] [id number] [address] [place] [address] [id number] Apr, Dental caries K02.9 [facility] [address] [id number] [address] [place] [address] [id number] Apr, Dental examination Z01.20 [facility] [address] [facility] [id number] [address] [place] [address] 08 Dec, 2015 Type 2 diabetes mellitus wit hout complications E11.9 ; residential current use of insulin Z79.4 ; Essential (primary) hypertension I10 and Elevated white blood cell count, unspecified D72.829 [place] [address] [address] 29 Jul, 2015 Diabetes mellitus without me ntion of complication, type II or unspecified type, not stated as uncontrolled 250.00 [place] [address] [address] 11 Jul, 2015 [place] [address] [address] Jan, Encounter for immunization Z 23 [facility] [address] [place] [id number] [place] [address] [id number] Dec, Dental examination V72.2 [place] [address] [address] 07 Nov, 2014 Cancer of lung, upper lobe 1 62.3 [place] [address] [address] Sep, Lung cancer 162.9 ; CAD (cor onary artery disease) 414.00 and Depression 311 [place] [address] [address] 14 Jul, 2014 [place] [address] [address] Jul, [place] [address] [address] Jun, [place] [address] [place] [id number] [place] [phone] Jun, [place] [address] [address] Mar, [facility] [address] [id number] [address] [place] [address], [place] [address] Mar, [facility] [address] [id number] [address] [place] [address], [place] [address] Jan, [facility] [address] [id number] [address] [place] [address], [place] [address] Jan, [facility] [address] [id number] [address] [place] [address], [place] [address] Jan, [facility] [address] [id number] [address] [place] [address], [place] [address] Jan, [facility] [address] [id number] [address] [place] [address], [place] [address] Jan, [facility] [address] [id number] [address] [place] [address], [place] [address] Jan, [facility] [address] [id number] [address] [place] [address], [place] [address] Dec, [facility] [address] [id number] [address] [place] [address], [place] [address] Dec, [facility] [address] [id number] [address] [place] [address], [place] [address] Oct, [facility] [address] [id number] [address] [place] [address], [place] [address] Oct, [facility] [address] [id number] [address] [place] [address], [place] [address] Sep, [facility] [address] [id number] [address] [place] [address], [place] [address] Sep, [facility] [address] [id number] [address] [place] [address], [place] [address] August, [facility] [address] [id number] [address] [place] [address], [place] [address] August, [facility] [address] [id number] [address] [place] [address], [place] [address] August, [facility] [address] [id number] [address] [place] [address], [place] [address] August, [facility] [address] [id number] [address] [place] [address], [place] [address] August, [facility] [address] [id number] [address] [place] [address], [place] [address] August, [facility] [address] [id number] [address] [place] [address], [place] [address] Jun, [facility] [address] [id number] [address] [place] [address], [place] [address] Jun, [facility] [address] [id number] [address] [place] [address], [place] [address] May, [facility] [address] [id number] [address] [place] [address], [place] [address] May, [facility] [address] [id number] [address] [place] [address], [place] [address] May, [facility] [address] [id number] [address] [place] [address], [place] [address] May, [facility] [address] [id number] [address] [place] [address], [place] [address] Apr, [facility] [address] [id number] [address] [place] [address], [place] [address] Apr, [facility] [address] [id number] [address] [place] [address], [place] [address] Mar, [facility] [address] [id number] [address] [place] [address], [place] [address] Mar, [facility] [address] [id number] [address] [place] [address], [place] [address] Mar, [facility] [address] [id number] [address] [place] [address], [place] [address] Mar, [facility] [address] [id number] [address] [place] [address], [place] [address] Mar, [facility] [address] [id number] [address] [place] [address], [place] [address] Mar, [facility] [address] [id number] [address] [place] [address], [place] [address] Mar, [facility] [address] [id number] [address] [place] [address], [place] [address] Mar, [facility] [address] [id number] [address] [place] [address], [place] [address] Mar, [facility] [address] [id number] [address] [place] [address], [place] [address] Feb, [facility] [address] [id number] [address] [place] [address], [place] [address] Feb, [facility] [address] [id number] [address] [place] [address], [place] [address] Jan, [facility] [address] [id number] [address] [place] [address], [place] [address] Jan, [facility] [address] [id number] [address] [place] [address], [place] [address] Jan, [facility] [address] [id number] [address] [place] [address], [place] [address] Jan, [facility] [address] [id number] [address] [place] [address], [place] [address] Jan, [facility] [address] [id number] [address] [place] [address], [place] [address] Dec, [facility] [address] [id number] [address] [place] [address], [place] [address] Nov, [facility] [address] [id number] [address] [place] [address], [place] [address] Nov, [facility] [address] [id number] [address] [place] [address], [place] [address] Nov, [facility] [address] [id number] [address] [place] [address], [place] [address] Oct, [facility] [address] [id number] [address] [place] [address], [place] [address] Oct, [facility] [address] [id number] [address] [place] [address], [place] [address] Sep, [facility] [address] [id number] [address] [place] [address], [place] [address] Sep, [facility] [address] [id number] [address] [place] [address], [place] [address] August, [facility] [address] [id number] [address] [place] [address], [place] [address] August, [facility] [address] [id number] [address] [place] [address], [place] [address] August, [facility] [address] [id number] [address] [place] [address], [place] [address] August, [facility] [address] [id number] [address] [place] [address], [place] [address] Jul, [facility] [address] [id number] [address] [place] [address], [place] [address] Jul, [facility] [address] [id number] [address] [place] [address], [place] [address] Jun, [facility] [address] [id number] [address] [place] [address], [place] [address] May, [facility] [address] [id number] [address] [place] [address], [place] [id number] May, [facility] [address] [id number] [address] [place] [address], [place] [id number] 18 May, 2012 [facility] [address] [id number] [address] [place] [address], [place] [id number] May, [facility] [address] [id number] [address] [place] [id number] May, [facility] [address] [id number] [address] [place] [phone] May, [facility] [address] [id number] [address] [place] [phone] May, [facility] [address] [id number] [address] [place] [phone] August, [facility] [address] [id number] [address] [place] [id number] Jul, [facility] [address] [id number] [address] [place] [id number] Jul, [facility] [address] [id number] [address] [place] [phone] May, [facility] [address] [id number] [address] [place] [id number] May, [facility] [address] [id number] [address] [place] [phone] Mar, [facility] [address] [id number] [address] [place] [phone] Sep, [facility] [address] [facility] [id number] [address] [place] [id number] Jul, [facility] [address] [id number] [address] [place] [id number] Mar, [facility] [address] [id number] [address] [place] [phone] Feb, [facility] [address] [id number] [address] [place] [id number] Feb, IMMUNIZATIONS No Known Immunizations SOCIAL HISTORY [...]
--- OUTSIDE RECORDS SUMMARY | 2019-12-02 07:57 | XMS REPORT ---
Author Author Teddy RIGGS Organization [facility] Address [address] [place] [address] Care Team Providers Care Model Maker Plastic Name Role Phone ONEILJAYE Unavailable PROBLEMS Type Condition ICD9-CM Code [id number] Code Onset Dates Condition S tatus SNOMED Code Problem Atherosclerotic heart diseas e of [place] coronary artery without angina pectoris I25.10 Active [id number] Problem Type 2 diabetes mellitus without complications E11 .9 Active 306115062 Problem Type 2 diabetes mellitus with foot ulcer E11.621 Active 518400806 Problem Neuropathy G62.9 Active 183567047 Problem Bilateral tinnitus H93.13 Active 4 360359297431 Problem Controlled type 2 diabetes m ellitus without complication, without long- term current use of insulin E11.9 Active 161652861 Problem Tinnitus of left ear H93.12 Active 8567164495243 Problem Seasonal allergic rhinitis due to other allergic trigger J30.89 Active 348940726 Problem Type 2 diabetes mellitus with hyperglycemia E11.65 Active 274991731699865 Problem Observed sleep apnea G47.30 Active 45432228 Problem Type 2 diabetes mellitus wit h diabetic neuropathy, without long-term current use of insulin E11.40 Active 03191 006 Problem Hypertension, benign I10 Active 67992804 Problem Type 2 diabetes 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.49 Active 20412542 Problem Elevated white blood cell count, unspecified D72.8 29 Active 368130034 Problem Simple chronic bronchitis J41.0 Acti ve 07763464 Problem Tinnitus of both ears H93.13 Active 5552803088596 Problem Essential (primary) hypertension I10 Active 25985567 Problem Cerebrovascular accident (CVA) due to em bolism of other cerebral artery I63.49 Active 806128850 Problem Altered mental status R41.82 Active 171278293 Problem Gastroesophageal reflux disease with esophagitis K 21.0 Active 760704426 Problem Other elevated white blood cell (WBC) count D72.82 8 Active [id number] ALLERGIES No Information ENCOUNTERS Encounter Location Date Diagnosis [facility] [address] [facility] [id number] [address] [place] [id number] Jan, [facility] [address] [facility] [id number] [address] [place] [phone] Oct, [facility] [address] [place] [id number] [address] [place] [id number] Oct, Simple chronic bronchitis J4 1.0 [facility] [address] [facility] [id number] [address] [place] [id number] 16 Oct, 2019 Type 2 diabetes mellitus wit hout complications E11.9 [facility] [address] [facility] [id number] [address] [place] [id number] 24 Sep, 2019 Encounter for screening labo ratory testing for COVID-19 virus Z11.59 [facility] [address] [place] [id number] [address] [place] [phone] Sep, [facility] [address] [place] [id number] [address] [place] [id number] 16 Sep, 2019 Type 2 diabetes mellitus wit hout complications E11.9 [facility] [address] [place] [id number] [address] [place] [phone] 16 Sep, 2019 [facility] [address] [place] [id number] [address] [place] [id number] Sep, Essential (primary) hyperten felecia I10 [facility] [address] [place] [id number] [address] [place] [id number] August, Type 2 diabetes mellitus wit hout complications E11.9 [facility] [address] [facility] [id number] [address] [place] [id number] 15 Jul, 2019 Essential (primary) hyperten felecia I10 and Type 2 diabetes mellitus without complications E11.9 [facility] [address] [facility] [id number] [address] [place] [id number] Jun, Type 2 diabetes mellitus wit hout complications E11.9 [facility] [address] [place] [id number] [address] [place] [id number] Jun, [facility] [address] [id number] [address] [place] [id number] Jun, Type 2 diabetes mellitus wit hout complications E11.9 [facility] [address] [id number] [address] [place] [id number] Jun, [facility] [address] [id number] [address] [place] [id number] May, [facility] [address] [id number] [address] [place] [phone] May, Type 2 diabetes mellitus wit hout complications E11.9 [facility] [address] [id number] [address] [place] [id number] Mar, Neuropathy G62.9 [facility] [address] [id number] [address] [place] [phone] Mar, [facility] [address] [id number] [address] [place] [id number] Dec, [facility] [address] [id number] [address] [place] [id number] Nov, Actinic keratoses L57.0 [facility] [address] [id number] [address] [place] [id number] Nov, [facility] [address] [id number] [address] [place] [id number] Nov, Type 2 diabetes mellitus wit hout complications E11.9 [facility] [address] [id number] [address] [place] [phone] Oct, Controlled type 2 diabetes m ellitus without complication, without long-term current use of insulin E11.9 [facility] [address] [id number] [address] [place] [id number] Oct, [facility] [address] [id number] [address] [place] [phone] Oct, [facility] [address] [facility] [id number] [address] [place] [id number] 17 Oct, 2018 Controlled type 2 diabetes m ellitus without complication, without long-term current use of insulin E11.9 [facility] [address] [facility] [id number] [address] [place] [id number] Oct, Essential (primary) hyperten felecia I10 ; Type 2 diabetes mellitus without complications E11.9 ; Actinic keratoses L57.0 and Seborrheic keratoses L82.1 [facility] [address] [facility] [id number] [address] [place] [id number] Oct, [place] [address] [place] [id number] [address] [place] [id number] Sep, Hypertension, benign I10 and Controlled type 2 diabetes mellitus without complication, without long-term current use of insulin E11.9 [place] [address] [facility] [id number] [address] [place] [id number] Sep, Other elevated white blood c ell (WBC) count D72.828 [place] [address] [facility] [id number] [address] [place] [id number] August, Neuropathy G62.9 [place] [address] [facility] [id number] [address] [place] [id number] August, Other elevated white blood c ell (WBC) count D72.828 [place] [address] [facility] [id number] [address] [place] [id number] August, Type 2 diabetes mellitus wit h foot ulcer E11.621 [facility] [address] [facility] [id number] [address] [place] [id number] Jul, [facility] [address] [facility] [id number] [address] [place] [id number] Jul, Neuropathy G62.9 [facility] [address] [facility] [id number] [address] [place] [phone] Jun, [facility] [address] [facility] [id number] [address] [place] [id number] Jun, Neuropathy G62.9 [facility] [address] [facility] [id number] [address] [place] [id number] May, Neuropathy G62.9 [facility] [address] [facility] [id number] [address] [place] [id number] Mar, Type 2 diabetes mellitus wit hout complications E11.9 [place] [address] [facility] [id number] [address] [place] [phone] Feb, Neuropathy G62.9 [place] [address] [facility] [id number] [address] [place] [phone] Feb, Actinic keratoses L57.0 [place] [address] [place] [id number] [address] [place] [id number] Feb, Type 2 diabetes mellitus wit hout complications E11.9 ; Tobacco abuse Z72.0 ; Tobacco abuse counseling Z71.6 and Atherosclerotic heart disease of [place] coronary artery without angina pectoris I25.10 [place] [address] [facility] [id number] [address] [place] [id number] 08 Feb, 2018 Type 2 diabetes mellitus wit hout complications E11.9 ; Tobacco abuse Z72.0 ; Tobacco abuse counseling Z71.6 ; Atherosclerotic heart disease of [place] coronary artery without angina pectoris I25.10 ; Seborrheic keratoses L82.1 and Gastroesophageal reflux disease with esophagitis K21.0 [facility] [address] [facility] [id number] [address] [place] [id number] Jan, Abscess L02.91 [facility] [address] [facility] [id number] [address] [place] [id number] Jan, Neuropathy G62.9 [facility] [address] [facility] [id number] [address] [place] [phone] Dec, Neuropathy G62.9 ; Cerebrova scular accident (CVA) due to embolism of other cerebral artery I63.49 and Seasonal allergic rhinitis due to other allergic trigger J30.89 [facility] [address] [id number] 10 Dec, 2017 Altered mental status R41.82 [facility] [address] [address] 16 Nov, 2017 Type 2 diabetes mellitus wit h diabetic neuropathy, without long- term current use of insulin E11.40 [facility] [address] [id number] 17 Oct, 2017 Neuropathy G62.9 ; Type 2 di abetes mellitus with other diabetic neurological complication E11.49 ; Type 2 diabetes mellitus with hyperglycemia E11.65 ; Actinic keratoses L57.0 and Observed sleep apnea G47.30 [facility] [address] [id number] Sep, Tinnitus of both ears H93.13 and Actinic keratitis, unspecified laterality H16.139 [facility] [address] [address] August, Type 2 diabetes mellitus wit hout complications E11.9 and Controlled type 2 diabetes mellitus without complication, without long-term current use of insulin E11.9 [facility] [address] [id number] August, Seborrheic keratoses L82.1 a nd Tinnitus of left ear H93.12 [facility] [address] [address] Jul, Controlled type 2 diabetes m ellitus without complication, without long-term current use of insulin E11.9 ; Seborrheic keratoses L82.1 ; Bilateral tinnitus H93.13 and Seasonal allergic rhinitis due to other allergic trigger J30.89 [facility] [address] [place] [id number] [place] [id number] May, Encounter for dental examina tion Z01.20 [facility] [address] [id number] Jan, Encounter for dental examina tion Z01.20 [facility] [address] [id number] [address] [place] [id number] Jan, Type 2 diabetes mellitus wit hout complications E11.9 and Acute non- recurrent maxillary sinusitis J01.00 [facility] [address] [id number] [address] [place] [id number] Dec, Right ear impacted cerumen H 61.21 and Acute suppurative otitis media of right ear without spontaneous rupture of tympanic membrane, recurrence not specified H66.001 [facility] [address] [id number] [address] [place] [id number] Nov, Type 2 diabetes mellitus wit hout complications E11.9 and Neuropathy G62.9 [facility] [address] [id number] [address] [place] [address] [id number] Oct, Encounter for dental examina tion Z01.20 [facility] [address] [id number] [address] [place] [phone] Jun, Dental examination Z01.20 [facility] [address] [id number] [address] [place] [id number] 16 Jun, 2016 Atherosclerotic heart diseas e of [place] coronary artery without angina pectoris I25.10 [facility] [address] [id number] [address] [place] [id number] 15 Jun, 2016 Atherosclerotic heart diseas e of [place] coronary artery without angina pectoris I25.10 [facility] [address] [id number] [address] [place] [id number] Jun, Type 2 diabetes mellitus wit hout complications E11.9 [facility] [address] [id number] [address] [place] [address] [id number] May, Encounter for dental examina tion Z01.20 [facility] [address] [id number] [address] [place] [address] [id number] Apr, Dental caries K02.9 [facility] [address] [place] [id number] [address] [place] [address] [phone] Apr, Dental examination Z01.20 [place] [address] [address] 08 Dec, 2015 Type 2 diabetes mellitus wit hout complications E11.9 ; terminologist current use of insulin Z79.4 ; Essential (primary) hypertension I10 and Elevated white blood cell count, unspecified D72.829 [place] [address] [address] 29 Jul, 2015 Diabetes mellitus without me ntion of complication, type II or unspecified type, not stated as uncontrolled 250.00 [place] [address] [address] Jul, [place] [address] [address] Jan, Encounter for immunization Z 23 [facility] [address] [facility] [id number] [place] [address] [id number] Dec, Dental examination V72.2 [place] [address] [address] Nov, Cancer of lung, upper lobe 1 62.3 [place] [address] [address] Sep, Lung cancer 162.9 ; CAD (cor onary artery disease) 414.00 and Depression 311 [place] [address] [place] [id number] [address] [place] [id number] Jul, [place] [address] [address] Jul, [place] [address] [address] Jun, [place] [address] [address] Jun, [place] [address] [place] [address] 15 Mar, 2014 [facility] [address] [id number] [address] [place] [address], [place] [address] Mar, [facility] [address] [id number] [address] [place] [address], [place] [address] Jan, [facility] [address] [id number] [address] [place] [address], [place] [address] Jan, [facility] [address] [id number] [address] [place] [address], [place] [address] Jan, [facility] [address] [id number] [address] [place] [address], [place] [address] Jan, [facility] [address] [id number] [address] [place] [address], [place] [address] Jan, [facility] [address] [id number] [address] [place] [address], [place] [address] Jan, [facility] [address] [id number] [address] [place] [address], [place] [address] Dec, [facility] [address] [id number] [address] [place] [address], [place] [address] Dec, [facility] [address] [id number] [address] [place] [address], [place] [address] Oct, [facility] [address] [id number] [address] [place] [address], [place] [address] Oct, [facility] [address] [id number] [address] [place] [address], [place] [address] Sep, [facility] [address] [id number] [address] [place] [address], [place] [address] Sep, [facility] [address] [id number] [address] [place] [address], [place] [address] August, [facility] [address] [id number] [address] [place] [address], [place] [address] August, [facility] [address] [id number] [address] [place] [address], [place] [address] August, [facility] [address] [id number] [address] [place] [address], [place] [address] August, [facility] [address] [id number] [address] [place] [address], [place] [address] August, [facility] [address] [id number] [address] [place] [address], [place] [address] August, [facility] [address] [id number] [address] [place] [address], [place] [address] Jun, [facility] [address] [id number] [address] [place] [address], [place] [address] Jun, [facility] [address] [id number] [address] [place] [address], [place] [address] May, [facility] [address] [id number] [address] [place] [address], [place] [address] May, [facility] [address] [id number] [address] [place] [address], [place] [address] May, [facility] [address] [id number] [address] [place] [address], [place] [address] May, [facility] [address] [id number] [address] [place] [address], [place] [address] Apr, [facility] [address] [id number] [address] [place] [address], [place] [address] Apr, [facility] [address] [id number] [address] [place] [address], [place] [address] Mar, [facility] [address] [id number] [address] [place] [address], [place] [address] Mar, [facility] [address] [id number] [address] [place] [address], [place] [address] Mar, [facility] [address] [id number] [address] [place] [id number] Mar, [facility] [address] [id number] [address] [place] [address], [place] [address] Mar, [facility] [address] [id number] [address] [place] [id number] Mar, [facility] [address] [id number] [address] [place] [id number] Mar, [facility] [address] [id number] [address] [place] [id number] Mar, [facility] [address] [id number] [address] [place] [address], [place] [address] Mar, [facility] [address] [id number] [address] [place] [id number] Feb, [facility] [address] [id number] [address] [place] [id number] Feb, [facility] [address] [id number] [address] [place] [id number] Jan, [facility] [address] [id number] [address] [place] [phone] Jan, [facility] [address] [id number] [address] [place] [id number] Jan, [facility] [address] [id number] [address] [place] [phone] Jan, [facility] [address] [id number] [address] [place] [id number] Jan, [facility] [address] [id number] [address] [place] [id number] Dec, [facility] [address] [id number] [address] [place] [id number] Nov, [facility] [address] [id number] [address] [place] [id number] Nov, [facility] [address] [id number] [address] [place] [address], [place] [address] Nov, [facility] [address] [id number] [address] [place] [address], [place] [address] 16 Oct, 2012 [facility] [address] [id number] [address] [place] [address], [place] [address] Oct, [facility] [address] [id number] [address] [place] [address], [place] [address] Sep, [facility] [address] [id number] [address] [place] [address], [place] [address] Sep, [facility] [address] [id number] [address] [place] [address], [place] [address] August, [facility] [address] [id number] [address] [place] [address], [place] [address] August, [facility] [address] [id number] [address] [place] [address], [place] [address] August, [facility] [address] [id number] [address] [place] [address], [place] [address] August, [facility] [address] [id number] [address] [place] [address], [place] [address] Jul, [facility] [address] [id number] [address] [place] [address], [place] [id number] 15 Jul, 2012 [facility] [address] [id number] [address] [place] [address], [place] [id number] Jun, [facility] [address] [id number] [address] [place] [address], [place] [phone] May, [facility] [address] [id number] [address] [place] [address], [place] [id number] May, [facility] [address] [id number] [address] [place] [address], [place] [id number] 18 May, 2012 [facility] [address] [id number] [address] [place] [address], [place] [id number] 15 May, 2012 [facility] [address] [id number] [address] [place] [phone] May, [facility] [address] [id number] [address] [place] [id number] May, [facility] [address] [id number] [address] [place] [phone] May, [facility] [address] [id number] [address] [place] [phone] August, [facility] [address] [id number] [address] [place] [id number] Jul, [facility] [address] [id number] [address] [place] [id number] Jul, [facility] [address] [facility] [id number] [address] [place] [phone] May, [facility] [address] [id number] [address] [place] [id number] May, [facility] [address] [facility] [id number] [address] [place] [id number] Mar, [facility] [address] [facility] [id number] [address] [place] [phone] Sep, [facility] [address] [facility] [id number] [address] [place] [id number] Jul, [facility] [address] [id number] [address] [place] [id number] Mar, [facility] [address] [id number] [address] [place] [id number] Feb, [facility] [address] [facility] [id number] [address] [place] [id number] Feb, IMMUNIZATIONS No Known Immunizations SOCIAL HISTORY [...]
--- OUTSIDE RECORDS SUMMARY | 2019-12-02 07:57 | XMS REPORT ---
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 Name Role Phone ONEILJAYE Unavailable PROBLEMS Type Condition ICD9-CM Code SBH96-HI Code Onset Dates Condition S tatus SNOMED Code Problem 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.10 Active 186821750488415 Problem Type 2 diabetes mellitus without complications E11 .9 Active 049690074 Problem Type 2 diabetes mellitus with foot ulcer E11.621 Active 445601165 Problem Neuropathy G62.9 Active 323308531 Problem Bilateral tinnitus H93.13 Active 4 250750792995 Problem Controlled type 2 diabetes m ellitus without complication, without long- term current use of insulin E11.9 Active 255367967 Problem Tinnitus of left ear H93.12 Active 2243605829910 Problem Seasonal allergic rhinitis due to other allergic trigger J30.89 Active 279160830 Problem Type 2 diabetes mellitus with hyperglycemia E11.65 Active 408950206923088 Problem Observed sleep apnea G47.30 Active 41942841 Problem Type 2 diabetes mellitus wit h diabetic neuropathy, without long-term current use of insulin E11.40 Active 27265 006 Problem Hypertension, benign I10 Active 20020171 Problem Type 2 diabetes 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.49 Active 62849954 Problem Elevated white blood cell count, unspecified D72.8 29 Active 473516640 Problem Simple chronic bronchitis J41.0 Acti ve 93829540 Problem Tinnitus of both ears H93.13 Active 3134331338872 Problem Essential (primary) hypertension I10 Active 08672767 Problem Cerebrovascular accident (CVA) due to em bolism of other cerebral artery I63.49 Active 002841061 Problem Altered mental status R41.82 Active 600550331 Problem Gastroesophageal reflux disease with esophagitis K 21.0 Active 464253954 Problem Other elevated white blood cell (WBC) count D72.82 8 Active 304847186 ALLERGIES No Information ENCOUNTERS Encounter Location Date Diagnosis [facility] [address] [facility] [id number] [address] [place] [address] Jan, [facility] [address] [facility] [id number] [address] [place] [address] Oct, Simple chronic bronchitis J4 1.0 [facility] [address] [facility] [id number] [address] [place] [address] Oct, Type 2 diabetes mellitus wit hout complications E11.9 [facility] [address] [facility] [id number] [address] [place] [address] 24 Sep, 2019 Encounter for screening labo ratory testing for COVID-19 virus Z11.59 [facility] [address] [facility] [id number] [address] [place] [address] 24 Sep, 2019 [facility] [address] [facility] [id number] [address] [place] [address] Sep, Type 2 diabetes mellitus wit hout complications E11.9 [facility] [address] [facility] [id number] [address] [place] [address] Sep, [facility] [id number] [place] [address] Sep, Essential (primary) hyperten felecia I10 [facility] [address] [facility] [id number] [address] [place] [address] August, Type 2 diabetes mellitus wit hout complications E11.9 [facility] [address] [facility] [id number] [address] [place] [address] 15 Jul, 2019 Essential (primary) hyperten felecia I10 and Type 2 diabetes mellitus without complications E11.9 [facility] [address] [facility] [id number] [address] [place] [address] Jun, Type 2 diabetes mellitus wit hout complications E11.9 [facility] [address] [facility] [id number] [address] [place] [address] Jun, [facility] [address] [place] [id number] [address] [place] [address] Jun, Type 2 diabetes mellitus wit hout complications E11.9 [facility] [address] [id number] [address] [place] [address] Jun, [facility] [address] [id number] [address] [place] [address] May, [facility] [address] [id number] [address] [place] [address] May, Type 2 diabetes mellitus wit hout complications E11.9 [facility] [address] [id number] [address] [place] [address] Mar, Neuropathy G62.9 [facility] [address] [id number] [address] [place] [address] Mar, [facility] [address] [id number] [address] [place] [address] Dec, [facility] [address] [id number] [address] [place] [address] Nov, Actinic keratoses L57.0 [facility] [address] [id number] [address] [place] [address] Nov, [facility] [address] [id number] [address] [place] [address] Nov, Type 2 diabetes mellitus wit hout complications E11.9 [facility] [address] [id number] [address] [place] [address] Oct, Controlled type 2 diabetes m ellitus without complication, without long-term current use of insulin E11.9 [facility] [address] [id number] [address] [place] [address] Oct, [facility] [address] [id number] [address] [place] [address] Oct, [facility] [address] [id number] [address] [place] [address] 17 Oct, 2018 Controlled type 2 diabetes m ellitus without complication, without long-term current use of insulin E11.9 [place] [address] [facility] [id number] [address] [place] [address] 17 Oct, 2018 Essential (primary) hyperten felecia I10 ; Type 2 diabetes mellitus without complications E11.9 ; Actinic keratoses L57.0 and Seborrheic keratoses L82.1 [place] [address] [facility] [id number] [address] [place] [address] Oct, [place] [address] [facility] [id number] [address] [place] [address] Sep, Hypertension, benign I10 and Controlled type 2 diabetes mellitus without complication, without long-term current use of insulin E11.9 [place] [address] [facility] [id number] [address] [place] [address] Sep, Other elevated white blood c ell (WBC) count D72.828 [place] [address] [facility] [id number] [address] [place] [address] August, Neuropathy G62.9 [place] [address] [facility] [id number] [address] [place] [address] August, Other elevated white blood c ell (WBC) count D72.828 [place] [address] [facility] [id number] [address] [place] [address] August, Type 2 diabetes mellitus wit h foot ulcer E11.621 [place] [address] [id number] [address] [place] [address] Jul, [place] [address] [id number] [address] [place] [address] Jul, Neuropathy G62.9 [place] [address] [facility] [id number] [address] [place] [address] Jun, [place] [address] [facility] [id number] [address] [place] [address] Jun, Neuropathy G62.9 [place] [address] [address] May, Neuropathy G62.9 [place] [address] [address] Mar, Type 2 diabetes mellitus wit hout complications E11.9 [place] [address] [address] Feb, Neuropathy G62.9 [place] [address] [address] Feb, Actinic keratoses L57.0 [place] [address] [address] Feb, Type 2 diabetes mellitus wit hout complications E11.9 ; Tobacco abuse Z72.0 ; Tobacco abuse counseling Z71.6 and Atherosclerotic heart disease of [place] coronary artery without angina pectoris I25.10 [place] [address] [address] 08 Feb, 2018 Type 2 diabetes mellitus wit hout complications E11.9 ; Tobacco abuse Z72.0 ; Tobacco abuse counseling Z71.6 ; Atherosclerotic heart disease of [place] coronary artery without angina pectoris I25.10 ; Seborrheic keratoses L82.1 and Gastroesophageal reflux disease with esophagitis K21.0 [facility] [address] [place] [id number] [address] [place] [address] Jan, Abscess L02.91 [place] [address] [place] [id number] [address] [place] [address] Jan, Neuropathy G62.9 [place] [address] [address] Dec, Neuropathy G62.9 ; Cerebrova scular accident (CVA) due to embolism of other cerebral artery I63.49 and Seasonal allergic rhinitis due to other allergic trigger J30.89 [facility] [address] [address] Dec, Altered mental status R41.82 [place] [address] [facility] [id number] [address] [place] [address] 16 Nov, 2017 Type 2 diabetes mellitus wit h diabetic neuropathy, without long- term current use of insulin E11.40 [facility] [address] [facility] [id number] [address] [place] [address] 17 Oct, 2017 Neuropathy G62.9 ; Type 2 di abetes mellitus with other diabetic neurological complication E11.49 ; Type 2 diabetes mellitus with hyperglycemia E11.65 ; Actinic keratoses L57.0 and Observed sleep apnea G47.30 [place] [address] [place] [id number] [place] [address] Sep, Tinnitus of both ears H93.13 and Actinic keratitis, unspecified laterality H16.139 [place] [address] [place] [id number] [place] [address] August, Type 2 diabetes mellitus wit hout complications E11.9 and Controlled type 2 diabetes mellitus without complication, without long-term current use of insulin E11.9 [place] [address] [facility] [id number] [place] [address] August, Seborrheic keratoses L82.1 a nd Tinnitus of left ear H93.12 [place] [address] [place] [id number] [address] [place] [address] Jul, Controlled type 2 diabetes m ellitus without complication, without long-term current use of insulin E11.9 ; Seborrheic keratoses L82.1 ; Bilateral tinnitus H93.13 and Seasonal allergic rhinitis due to other allergic trigger J30.89 [facility] [address] [id number] [address] [place] [address] [id number] May, Encounter for dental examina tion Z01.20 [facility] [address] [id number] [address] [place] [address] [id number] Jan, Encounter for dental examina tion Z01.20 [facility] [address] [place] [id number] [address] [place] [address] Jan, Type 2 diabetes mellitus wit hout complications E11.9 and Acute non- recurrent maxillary sinusitis J01.00 [facility] [address] [facility] [id number] [address] [place] [address] Dec, Right ear impacted cerumen H 61.21 and Acute suppurative otitis media of right ear without spontaneous rupture of tympanic membrane, recurrence not specified H66.001 [facility] [address] [place] [id number] [address] [place] [address] Nov, Type 2 diabetes mellitus wit hout complications E11.9 and Neuropathy G62.9 [facility] [address] [place] [id number] [place] [address] [id number] Oct, Encounter for dental examina tion Z01.20 [facility] [id number] [place] [address] [id number] Jun, Dental examination Z01.20 [facility] [address] [place] [id number] [address] [place] [address] 16 Jun, 2016 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.10 [place] [address] [address] 15 Jun, 2016 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.10 [facility] [address] [place] [id number] [address] [place] [address] Jun, Type 2 diabetes mellitus wit hout complications E11.9 [facility] [address] [id number] [address] [place] [address] [id number] May, Encounter for dental examina tion Z01.20 [facility] [address] [id number] [place] [address] [id number] Apr, Dental caries K02.9 [facility] [address] [id number] [address] [place] [address] [id number] Apr, Dental examination Z01.20 [facility] [address] [address] 08 Dec, 2015 Type 2 diabetes mellitus wit hout complications E11.9 ; 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 ; Essential (primary) hypertension I10 and Elevated white blood cell count, unspecified D72.829 [place] [address] [place] [id number] [address] [place] [address] 29 Jul, 2015 Diabetes mellitus without me ntion of complication, type II or unspecified type, not stated as uncontrolled 250.00 [place] [address] [address] 11 Jul, 2015 [place] [address] [address] 07 Jan, 2015 Encounter for immunization Z 23 [facility] [id number] [place] [address] [id number] Dec, Dental examination V72.2 [place] [address] [address] Nov, Cancer of lung, upper lobe 1 62.3 [place] [address] [address] Sep, Lung cancer 162.9 ; CAD (cor onary artery disease) 414.00 and Depression 311 [place] [address] [address] 14 Jul, 2014 [place] [address] [address] Jul, [place] [address] [address] Jun, [place] [address] [address] Jun, [place] [address] [address] Mar, [place] [address] [place] [address] Mar, [facility] [address] [id number] [address] [place] [address], [place] [address] Jan, [facility] [address] [id number] [address] [place] [address], [place] [address] Jan, [facility] [address] [id number] [address] [place] [address], [place] [address] Jan, [facility] [address] [id number] [address] [place] [address], [place] [address] Jan, [facility] [address] [id number] [address] [place] [address], [place] [address] Jan, [facility] [address] [id number] [address] [place] [address], [place] [address] Jan, [facility] [address] [id number] [address] [place] [address], [place] [address] Dec, [facility] [address] [id number] [address] [place] [address], [place] [address] Dec, [facility] [address] [id number] [address] [place] [address], [place] [address] Oct, [facility] [address] [id number] [address] [place] [address], [place] [address] Oct, [facility] [address] [id number] [address] [place] [address], [place] [address] Sep, [facility] [address] [id number] [address] [place] [address], [place] [address] Sep, [facility] [address] [id number] [address] [place] [address], [place] [address] August, [facility] [address] [id number] [address] [place] [address], [place] [address] August, [facility] [address] [id number] [address] [place] [address], [place] [address] August, [facility] [address] [id number] [address] [place] [address], [place] [address] August, [facility] [address] [id number] [address] [place] [address], [place] [address] August, [facility] [address] [id number] [address] [place] [address], [place] [address] August, [facility] [address] [id number] [address] [place] [address], [place] [address] Jun, [facility] [address] [id number] [address] [place] [address], [place] [address] Jun, [facility] [address] [id number] [address] [place] [address], [place] [address] May, [facility] [address] [id number] [address] [place] [address], [place] [address] May, [facility] [address] [id number] [address] [place] [address], [place] [address] May, [facility] [address] [id number] [address] [place] [address], [place] [address] May, [facility] [address] [id number] [address] [place] [address], [place] [address] Apr, [facility] [address] [id number] [address] [place] [address], [place] [address] Apr, [facility] [address] [id number] [address] [place] [address], [place] [address] Mar, [facility] [address] [id number] [address] [place] [address], [place] [address] Mar, [facility] [address] [id number] [address] [place] [address], [place] [address] Mar, [facility] [address] [id number] [address] [place] [address], [place] [address] Mar, [facility] [address] [id number] [address] [place] [address] Mar, [facility] [address] [id number] [address] [place] [address], [place] [address] Mar, [facility] [address] [id number] [address] [place] [address] Mar, [facility] [address] [id number] [address] [place] [address] Mar, [facility] [address] [id number] [address] [place] [address] Mar, [facility] [address] [id number] [address] [place] [address], [place] [address] Feb, [facility] [address] [id number] [address] [place] [address] Feb, [facility] [address] [id number] [address] [place] [address] Jan, [facility] [address] [id number] [address] [place] [address] Jan, [facility] [address] [id number] [address] [place] [address] Jan, [facility] [address] [id number] [address] [place] [address] Jan, [facility] [address] [id number] [address] [place] [address] Jan, [facility] [address] [id number] [address] [place] [address] Dec, [facility] [address] [id number] [address] [place] [address] Nov, [facility] [address] [id number] [address] [place] [address] Nov, [facility] [address] [id number] [address] [place] [address] Nov, [facility] [address] [id number] [address] [place] [address], [place] [address] 16 Oct, 2012 [facility] [address] [id number] [address] [place] [address], [place] [address] Oct, [facility] [address] [id number] [address] [place] [address], [place] [address] Sep, [facility] [address] [id number] [address] [place] [address], [place] [address] Sep, [facility] [address] [id number] [address] [place] [address], [place] [address] August, [facility] [address] [id number] [address] [place] [address], [place] [address] August, [facility] [address] [id number] [address] [place] [address], [place] [address] August, [facility] [address] [id number] [address] [place] [address], [place] [address] August, [facility] [address] [id number] [address] [place] [address], [place] [address] 16 Jul, 2012 [facility] [address] [id number] [address] [place] [address], [place] [address] Jul, [facility] [address] [id number] [address] [place] [address], [place] [address] Jun, [facility] [address] [id number] [address] [place] [address], [place] [address] May, [facility] [address] [id number] [address] [place] [address], [place] [address] May, [facility] [address] [id number] [address] [place] [address], [place] [address] 18 May, 2012 [facility] [address] [id number] [address] [place] [address], [place] [address] 15 May, 2012 [facility] [address] [id number] [address] [place] [address], [place] [phone] May, [facility] [address] [id number] [address] [place] [id number] May, [facility] [address] [id number] [address] [place] [phone] May, [facility] [address] [id number] [address] [place] [phone] August, [facility] [address] [id number] [address] [place] [phone] Jul, [facility] [address] [id number] [address] [place] [id number] Jul, [facility] [address] [id number] [address] [place] [phone] May, [facility] [address] [id number] [address] [place] [phone] May, [facility] [address] [id number] [address] [place] [phone] Mar, [facility] [address] [facility] [id number] [address] [place] [phone] Sep, [facility] [address] [id number] [address] [place] [phone] Jul, [facility] [address] [facility] [id number] [address] [place] [phone] Mar, [facility] [address] [id number] [address] [place] [id number] Feb, [facility] [address] [facility] [id number] [address] [place] [phone] Feb, IMMUNIZATIONS No Known Immunizations SOCIAL HISTORY Never Assessed REASON FOR VISIT PLAN OF CARE VITAL SIGNS MEDICATIONS Unknown Medications RESULTS No Results PROCEDURES No Known procedures INSTRUCTIONS MEDICATIONS ADMINISTERED No Known Medications MEDICAL (GENERAL) HISTORY Type Description Date Medical History hypertension Medical History Diabetes Medical History Lung Cancer 2014, /chemo Medical 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
--- OUTSIDE RECORDS SUMMARY | 2019-12-02 07:57 | XMS REPORT ---
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 Name Role Phone ONEILJAYE Unavailable PROBLEMS Type Condition ICD9-CM Code QGQ23-NE Code Onset Dates Condition S tatus SNOMED Code Problem Atherosclerotic heart diseas e of [place] coronary artery without angina pectoris I25.10 Active 269770931160250 Problem Type 2 diabetes mellitus without complications E11 .9 Active 693174943 Problem Type 2 diabetes mellitus with foot ulcer E11.621 Active 680885771 Problem Neuropathy G62.9 Active 638251966 Problem Bilateral tinnitus H93.13 Active 4 041504224773 Problem Controlled type 2 diabetes m ellitus without complication, without long- term current use of insulin E11.9 Active 420567770 Problem Tinnitus of left ear H93.12 Active 6257521710437 Problem Seasonal allergic rhinitis due to other allergic trigger J30.89 Active 140062708 Problem Type 2 diabetes mellitus with hyperglycemia E11.65 Active 736392216936035 Problem Observed sleep apnea G47.30 Active 99669253 Problem Type 2 diabetes mellitus wit h diabetic neuropathy, without long-term current use of insulin E11.40 Active 45105 006 Problem Hypertension, benign I10 Active 13501958 Problem Type 2 diabetes 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.49 Active 45333841 Problem Elevated white blood cell count, unspecified D72.8 29 Active 438550244 Problem Simple chronic bronchitis J41.0 Acti ve 19227757 Problem Tinnitus of both ears H93.13 Active 9207243695966 Problem Essential (primary) hypertension I10 Active 44848563 Problem Cerebrovascular accident (CVA) due to em bolism of other cerebral artery I63.49 Active 631366644 Problem Altered mental status R41.82 Active 976828276 Problem Gastroesophageal reflux disease with esophagitis K 21.0 Active 564505394 Problem Other elevated white blood cell (WBC) count D72.82 8 Active [id number] ALLERGIES No Information ENCOUNTERS Encounter Location Date Diagnosis [facility], [place] [address] [facility] [id number] [address] [place] [id number] Jan, [facility] [place] [address] [facility] [id number] [address] [place] [phone] Oct, [facility] [place] [address] [place] [id number] [address] [place] [phone] Oct, Simple chronic bronchitis J4 1.0 [facility] [place] [address] [facility] [id number] [address] [place] [phone] 16 Oct, 2019 Type 2 diabetes mellitus wit hout complications E11.9 [facility] [address] [facility] [id number] [address] [place] [id number] 24 Sep, 2019 Encounter for screening labo ratory testing for COVID-19 virus Z11.59 [facility] [place] [address] [place] [id number] [address] [place] [phone] Sep, [facility] [place] [address] [place] [id number] [address] [place] [phone] 16 Sep, 2019 Type 2 diabetes mellitus wit hout complications E11.9 [facility] [place] [address] [place] [id number] [address] [place] [phone] 16 Sep, 2019 [facility] [place] [address] [place] [id number] [address] [place] [phone] Sep, Essential (primary) hyperten felecia I10 [facility] [place] [address] [place] [id number] [address] [place] [phone] August, Type 2 diabetes mellitus wit hout complications E11.9 [facility] [place] [address] [facility] [id number] [address] [place] [phone] 15 Jul, 2019 Essential (primary) hyperten felecia I10 and Type 2 diabetes mellitus without complications E11.9 [facility] [place] [address] [facility] [id number] [address] [place] [phone] Jun, Type 2 diabetes mellitus wit hout complications E11.9 [facility] [place] [address] [place] [id number] [address] [place] [phone] Jun, [facility] [place] [address] [id number] [address] [place] [phone] Jun, Type 2 diabetes mellitus wit hout complications E11.9 [facility] [place] [address] [id number] [address] [place] [phone] Jun, [facility] [place] [address] [id number] [address] [place] [phone] May, [facility] [place] [address] [id number] [address] [place] [phone] May, Type 2 diabetes mellitus wit hout complications E11.9 [facility] [place] [address] [id number] [address] [place] [phone] Mar, Neuropathy G62.9 [facility] [place] [address] [id number] [address] [place] [phone] Mar, [facility] [place] [address] [id number] [address] [place] [phone] Dec, [facility] [place] [address] [id number] [address] [place] [phone] Nov, Actinic keratoses L57.0 [facility] [place] [address] [id number] [address] [place] [phone] Nov, [facility] [place] [address] [id number] [address] [place] [phone] Nov, Type 2 diabetes mellitus wit hout complications E11.9 [facility] [place] [address] [id number] [address] [place] [phone] Oct, Controlled type 2 diabetes m ellitus without complication, without long-term current use of insulin E11.9 [facility] [place] [address] [id number] [address] [place] [phone] Oct, [facility] [place] [address] [id number] [address] [place] [phone] Oct, [facility] [place] [address] [facility] [id number] [address] [place] [phone] 17 Oct, 2018 Controlled type 2 diabetes m ellitus without complication, without long-term current use of insulin E11.9 [facility] [place] [address] [facility] [id number] [address] [place] [phone] Oct, Essential (primary) hyperten felecai I10 ; Type 2 diabetes mellitus without complications E11.9 ; Actinic keratoses L57.0 and Seborrheic keratoses L82.1 [facility] [place] [address] [facility] [id number] [address] [place] [phone] Oct, [place] [address] [place] [id number] [address] [place] [phone] Sep, Hypertension, benign I10 and Controlled type 2 diabetes mellitus without complication, without long-term current use of insulin E11.9 [place] [address] [facility] [id number] [address] [place] [phone] Sep, Other elevated white blood c ell (WBC) count D72.828 [place] [address] [facility] [id number] [address] [place] [phone] August, Neuropathy G62.9 [place] [address] [facility] [id number] [address] [place] [address] August, Other elevated white blood c ell (WBC) count D72.828 [place] [address] [facility] [id number] [address] [place] [phone] August, Type 2 diabetes mellitus wit h foot ulcer E11.621 [facility] [place] [address] [facility] [id number] [address] [place] [phone] Jul, [facility] [place] [address] [facility] [id number] [address] [place] [phone] Jul, Neuropathy G62.9 [facility] [place] [address] [facility] [id number] [address] [place] [phone] Jun, [facility] [place] [address] [facility] [id number] [address] [place] [phone] Jun, Neuropathy G62.9 [facility] [place] [address] [facility] [id number] [address] [place] [phone] May, Neuropathy G62.9 [facility] [place] [address] [facility] [id number] [address] [place] [phone] Mar, Type 2 diabetes mellitus wit hout complications E11.9 [place] [address] [facility] [id number] [address] [place] [phone] Feb, Neuropathy G62.9 [place] [address] [facility] [id number] [address] [place] [phone] Feb, Actinic keratoses L57.0 [place] [address] [place] [id number] [address] [place] [phone] Feb, Type 2 diabetes mellitus wit hout complications E11.9 ; Tobacco abuse Z72.0 ; Tobacco abuse counseling Z71.6 and Atherosclerotic heart disease of [place] coronary artery without angina pectoris I25.10 [place] [address] [facility] [id number] [address] [place] [phone] 08 Feb, 2018 Type 2 diabetes mellitus wit hout complications E11.9 ; Tobacco abuse Z72.0 ; Tobacco abuse counseling Z71.6 ; Atherosclerotic heart disease of [place] coronary artery without angina pectoris I25.10 ; Seborrheic keratoses L82.1 and Gastroesophageal reflux disease with esophagitis K21.0 [facility] [address] [facility] [id number] [address] [place] [phone] Jan, Abscess L02.91 [facility] [place] [address] [facility] [id number] [address] [place] [phone] Jan, Neuropathy G62.9 [facility] [place] [address] [facility] [id number] [address] [place] [phone] Dec, Neuropathy G62.9 ; Cerebrova scular accident (CVA) due to embolism of other cerebral artery I63.49 and Seasonal allergic rhinitis due to other allergic trigger J30.89 [facility] [address] [phone] 10 Dec, 2017 Altered mental status R41.82 [facility] [place] [address] [phone] 16 Nov, 2017 Type 2 diabetes mellitus wit h diabetic neuropathy, without long- term current use of insulin E11.40 [facility] [place] [address] [phone] 17 Oct, 2017 Neuropathy G62.9 ; Type 2 di abetes mellitus with other diabetic neurological complication E11.49 ; Type 2 diabetes mellitus with hyperglycemia E11.65 ; Actinic keratoses L57.0 and Observed sleep apnea G47.30 [facility] [place] [address] [address] Sep, Tinnitus of both ears H93.13 and Actinic keratitis, unspecified laterality H16.139 [facility] [place] [address] [address] August, Type 2 diabetes mellitus wit hout complications E11.9 and Controlled type 2 diabetes mellitus without complication, without long-term current use of insulin E11.9 [facility] [place] [address] [address] August, Seborrheic keratoses L82.1 a nd Tinnitus of left ear H93.12 [facility] [place] [address] [address] Jul, Controlled type 2 diabetes m ellitus without complication, without long-term current use of insulin E11.9 ; Seborrheic keratoses L82.1 ; Bilateral tinnitus H93.13 and Seasonal allergic rhinitis due to other allergic trigger J30.89 [facility] [address] [place] [id number] [place] [phone] May, Encounter for dental examina tion Z01.20 [facility] [address] [id number] Jan, Encounter for dental examina tion Z01.20 [facility] [place] [address] [id number] [address] [place] [phone] Jan, Type 2 diabetes mellitus wit hout complications E11.9 and Acute non- recurrent maxillary sinusitis J01.00 [facility] [address] [id number] [address] [place] [phone] Dec, Right ear impacted cerumen H 61.21 and Acute suppurative otitis media of right ear without spontaneous rupture of tympanic membrane, recurrence not specified H66.001 [facility] [place] [address] [id number] [address] [place] [phone] Nov, Type 2 diabetes mellitus wit hout complications E11.9 and Neuropathy G62.9 [facility] [address] [id number] [address] [place] [id number] Oct, Encounter for dental examina tion Z01.20 [facility] [address] [id number] [address] [place] [id number] Jun, Dental examination Z01.20 [facility] [place] [address] [id number] [address] [place] [phone] 16 Jun, 2016 Atherosclerotic heart diseas e of [place] coronary artery without angina pectoris I25.10 [facility] [place] [address] [id number] [address] [place] [phone] 15 Jun, 2016 Atherosclerotic heart diseas e of [place] coronary artery without angina pectoris I25.10 [facility] [place] [address] [id number] [address] [place] [phone] Jun, Type 2 diabetes mellitus wit hout complications E11.9 [facility] [address] [id number] [address] [place] [id number] May, Encounter for dental examina tion Z01.20 [facility] [address] [id number] [address] [place] [id number] Apr, Dental caries K02.9 [facility] [address] [place] [id number] [address] [place] [address] [id number] Apr, Dental examination Z01.20 [place] [address] [address] 08 Dec, 2015 Type 2 diabetes mellitus wit hout complications E11.9 ; prison current use of insulin Z79.4 ; Essential (primary) hypertension I10 and Elevated white blood cell count, unspecified D72.829 [place] [address] [id number] 29 Jul, 2015 Diabetes mellitus without me ntion of complication, type II or unspecified type, not stated as uncontrolled 250.00 [place] [address] [address] Jul, [place] [address] [address] Jan, Encounter for immunization Z 23 [facility] [address] [facility] [id number] [place] [address] [id number] Dec, Dental examination V72.2 [place] [address] [address] Nov, Cancer of lung, upper lobe 1 62.3 [place] [address] [address] Sep, Lung cancer 162.9 ; CAD (cor onary artery disease) 414.00 and Depression 311 [place] [address] [place] [id number] [address] [place] [phone] Jul, [place] [address] [id number] Jul, [place] [address] [address] Jun, [place] [address] [address] Jun, [place] [address] [place] [address] 15 Mar, 2014 [facility] [address] [id number] [address] [place] [address], [place] [address] Mar, [facility] [address] [id number] [address] [place] [address], [place] [address] Jan, [facility] [address] [id number] [address] [place] [address], [place] [address] Jan, [facility] [address] [id number] [address] [place] [address], [place] [address] Jan, [facility] [address] [id number] [address] [place] [address], [place] [address] Jan, [facility] [address] [id number] [address] [place] [address], [place] [address] Jan, [facility] [address] [id number] [address] [place] [address], [place] [address] Jan, [facility] [address] [id number] [address] [place] [address], [place] [address] Dec, [facility] [address] [id number] [address] [place] [address], [place] [address] Dec, [facility] [address] [id number] [address] [place] [address], [place] [address] Oct, [facility] [address] [id number] [address] [place] [address], [place] [address] Oct, [facility] [address] [id number] [address] [place] [address], [place] [address] Sep, [facility] [address] [id number] [address] [place] [address], [place] [address] Sep, [facility] [address] [id number] [address] [place] [address], [place] [address] August, [facility] [address] [id number] [address] [place] [address], [place] [address] August, [facility] [address] [id number] [address] [place] [address], [place] [address] August, [facility] [address] [id number] [address] [place] [address], [place] [address] August, [facility] [address] [id number] [address] [place] [address], [place] [address] August, [facility] [address] [id number] [address] [place] [address], [place] [address] August, [facility] [address] [id number] [address] [place] [address], [place] [address] Jun, [facility] [address] [id number] [address] [place] [address], [place] [address] Jun, [facility] [address] [id number] [address] [place] [address], [place] [address] May, [facility] [address] [id number] [address] [place] [address], [place] [address] May, [facility] [address] [id number] [address] [place] [address], [place] [address] May, [facility] [address] [id number] [address] [place] [address], [place] [address] May, [facility] [address] [id number] [address] [place] [address], [place] [address] Apr, [facility] [address] [id number] [address] [place] [address], [place] [address] Apr, [facility] [address] [id number] [address] [place] [address], [place] [address] Mar, [facility] [address] [id number] [address] [place] [address], [place] [address] Mar, [facility] [address] [id number] [address] [place] [address], [place] [address] Mar, [facility] [address] [id number] [address] [place] [phone] Mar, [facility] [address] [id number] [address] [place] [address], [place] [address] Mar, [facility] [address] [id number] [address] [place] [phone] Mar, [facility] [address] [id number] [address] [place] [address] Mar, [facility] [address] [id number] [address] [place] [address] Mar, [facility] [address] [id number] [address] [place] [address], [place] [address] Mar, [facility] [address] [id number] [address] [place] [id number] Feb, [facility] [address] [id number] [address] [place] [phone] Feb, [facility] [address] [id number] [address] [place] [phone] Jan, [facility] [address] [id number] [address] [place] [address] Jan, [facility] [address] [id number] [address] [place] [id number] Jan, [facility] [address] [id number] [address] [place] [id number] Jan, [facility] [address] [id number] [address] [place] [address] Jan, [facility] [address] [id number] [address] [place] [address] Dec, [facility] [address] [id number] [address] [place] [phone] Nov, [facility] [address] [id number] [address] [place] [phone] Nov, [facility] [address] [id number] [address] [place] [address], [place] [address] Nov, [facility] [address] [id number] [address] [place] [address], [place] [address] 16 Oct, 2012 [facility] [address] [id number] [address] [place] [address], [place] [address] Oct, [facility] [address] [id number] [address] [place] [address], [place] [address] Sep, [facility] [address] [id number] [address] [place] [address], [place] [address] Sep, [facility] [address] [id number] [address] [place] [address], [place] [address] August, [facility] [address] [id number] [address] [place] [address], [place] [address] August, [facility] [address] [id number] [address] [place] [address], [place] [address] August, [facility] [address] [id number] [address] [place] [address], [place] [address] August, [facility] [address] [id number] [address] [place] [address], [place] [address] Jul, [facility] [address] [id number] [address] [place] [address], [place] [address] 15 Jul, 2012 [facility] [address] [id number] [address] [place] [address], [place] [address] Jun, [facility] [address] [id number] [address] [place] [address], [place] [address] May, [facility] [address] [id number] [address] [place] [address], [place] [address] May, [facility] [address] [id number] [address] [place] [address], [place] [address] 18 May, 2012 [facility] [address] [id number] [address] [place] [address], [place] [address] 15 May, 2012 [facility] [place] [address] [id number] [address] [place] [id number] May, [facility] [place] [address] [id number] [address] [place] [phone] May, [facility] [place] [address] [facility] [id number] [address] [place] [phone] May, [facility] [place] [address] [id number] [address] [place] [phone] August, [facility] [place] [address] [id number] [address] [place] [phone] Jul, [facility] [place] [address] [id number] [address] [place] [phone] Jul, [facility] [place] [address] [facility] [facility] [id number] [address] [place] [phone] May, [facility], [place] [address] [id number] [address] [place] [phone] May, [facility], [place] [address] [facility] [id number] [address] [place] [id number] Mar, [facility], [place] [address] [facility] [id number] [address] [place] [phone] Sep, [facility], [place] [address] [facility] [id number] [address] [place] [phone] Jul, [facility], [place] [address] [id number] [address] [place] [id number] Mar, [facility], [place] [address] [facility] [id number] [address] [place] [phone] Feb, [facility], [place] [address] [facility] [id number] [address] [place] [phone] Feb, IMMUNIZATIONS No Known Immunizations SOCIAL HISTORY Never Assessed REASON FOR VISIT PLAN OF CARE VITAL SIGNS MEDICATIONS Unknown Medications RESULTS No Results PROCEDURES Procedure Date Ordered Result Body Site COMPLETE CBC W/AUTO DIFF WBC August 05, 2012 GLYCATED HEMOGLOBIN TEST August 05, 2012 LIPID PANEL August 05, 2012 COMPREHEN METABOLIC PANEL August 05, 2012 ELECTROCARDIOGRAM, TRACING August 05, 2012 VENIPUNCT, ROUTINE* August 05, 2012 HEMOGLOBIN August 05, 2012 INSTRUCTIONS MEDICATIONS ADMINISTERED No Known Medications [...]
[2019-12-02] MEDS ORDERED: MIDAZOLAM 5 MG/5 ML (VERSED) VIAL ONE (08:00)
[2019-12-02] MEDS ORDERED: fentaNYL INJECTION 100 MCG/2 ML AMP ONE ×2 (08:00→12:33)
--- OUTSIDE RECORDS SUMMARY | 2019-12-02 08:03 | XMS REPORT | Continuity of Care Document ---
Demographics Preferred Language Unknown Marital Status Unknown Sabianist Affiliation Unknown Race Unknown Ethnic Group Unknown Author Organization Unknown Address Unknown Phone Unavailable Allergies Active Description Code Type Severity Reaction Onset Reported/Identified Relationship to Patient Clinical Status Yes celery Food Allergy N/A N/A 03/12/2009 Yes celery Food Allergy 03/12/2009 Yes Plavix 75 mg tablet Drug Aller gy N/A N/A 11/01/2012 Yes Brilinta Drug Allergy N/A N/A 03/26/2013 Yes celery [id number] Drug Allergy Unknown N/A 07/28/2016 Yes clopidogrel [id number] Drug Aller gy Unknown NAUSEA 07/28/2016 Yes ticagrelor [id number] Drug Allerg y Unknown NAUSEA 07/28/2016 Yes celery [id number] Drug Allergy Severe ANAPHYLAXIS 03/29/2018 Yes clopidogrel [id number] Drug Aller gy Mild NAUSEA/HIVES 03/29/2018 Yes ticagrelor [id number] Drug Allerg y Mild NAUSEA/HIVES 03/29/2018 Medications [...] 72 9.5 PAIN IN LIMB 11/29/2007 JAYE RGIGS APRN 27 2.4 HYPERLIPIDEMIA UNSPECIFIED 11/29/2007 JAYE [...] JOINT INVOLVING SHOULDER REGION 01/10/2008 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 01/10/2008 477.9 RHIN ITIS ALLERGIC 01/10/2008 JAYE RIGGS APRN 30 5.1 TOBACCO ABUSE 01/10/2008 JAYE RIGGS APRN 47 7.9 RHINITIS ALLERGIC 01/10/2008 JAYE RIGGS APRN 30 5.1 TOBACCO ABUSE 01/10/2008 JAYE RIGGS APRN 47 7.9 RHINITIS ALLERGIC 01/10/2008 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 01/10/2008 477.9 RHIN ITIS ALLERGIC 01/10/2008 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 01/10/2008 477.9 RHIN ITIS ALLERGIC 01/10/2008 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 01/10/2008 477.9 RHIN ITIS ALLERGIC 01/10/2008 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 01/10/2008 477.9 RHIN ITIS ALLERGIC 01/10/2008 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 01/10/2008 477.9 RHIN ITIS ALLERGIC 01/10/2008 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 01/10/2008 477.9 RHIN ITIS ALLERGIC 01/10/2008 [...] PCV7 PCV23, STREPTOCOCCUS PNEUMONIAE [PNEUMOCOCCUS] 01/31/2008 [employer] 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 SERVICE, JAYE T V04.81 NEED FOR PROPHYLACTIC VACCINATION [...] DYSFUNCTION WITH INHIBITED SEXUAL EXCITEM ENT 05/26/2011 AJYE RIGGS APRN 46 5.9 UPPER RESPIRATORY INFECTION [...] RIGGS APRN T 414.00 CAD 05/24/2012 [employer] OHDGE JAYE T 414.00 CAD 05/24/2012 JAYE RIGGS [...] IVY KOCYTOSIS, UNSPECIFIED 06/11/2012 Ot 305.1 [employer] SALES REPRESENTATIVE USE DISORDER 06/11/2012 Ot 311 DEPRES SIVE DISORDER NEC 06/11/2012 Ot 414.01 COR ONARY ATHEROSCLEROSIS OF [place] CORON 06/11/2012 Ot 530.81 ESO PHAGEAL REFLUX [...] MD 401.9 HYPERTENSION, UNSPECIFIED ESSENTIAL 11/27/2012 [employer], JAYE T 40 1.9 HYPERTENSION, UNSPECIFIED ESSENTIAL [...] 288.60 LEUKOCYTOSIS, UNSPECIFIED 09/03/2014 MICHAEL FERRO, DARSHAN Reulas Ot 305 .1 TOBACCO USE DISORDER 09/03/2014 MICHAEL FERRO, DARSHAN Ruelas Ot 401 .9 HYPERTENSION NOS 09/03/2014 MICHAEL FERRO, DARSHAN Ruelas Ot 414.01 CORONARY ATHEROSCLEROSIS OF [place] CORON 09/03/2014 MICHAEL FERRO, DARSHAN Ruelas Ot [...] MICHAEL FERRO, DARSHAN Ruelas Ot 250.00 09/04/2014 DARHSAN RODRIGUEZ MD Ot 288.60 09/04/2014 MICHAEL FERRO, [...] Ot V58. 69 12/30/2014 TEREZA VISHNU S 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 Ot 162.3 12/30/2014 STARKS, HILAH S 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 Ot 250.00 12/30/2014 STARKS, HILAH S 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 Ot 272.4 12/30/2014 STARKS, HILAH S 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 Ot 414.00 12/30/2014 STARKS, HILAH S 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 Ot 793.0 12/30/2014 STARKS, VISHNU S 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 Ot V45.82 12/30/2014 TEREZA, HILAH S 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 Ot V58.69 01/13/2015 BRANDY FERRO, JAMMIE [...] CHAPO J Ot 162.9 02/24/2015 VISHNU STARKS 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 Ot 162.3 02/24/2015 VISHNU STARKS 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 Ot 250.00 02/24/2015 VISHNU STARKS 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 Ot 272.4 02/24/2015 VISHNU STARKS 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 Ot 414.00 02/24/2015 VISHNU STARKS 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 Ot 793.0 02/24/2015 VISHNU STARKS 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 Ot V45.82 02/24/2015 VISHNU STARKSP Ot [...] CHAPO J Ot 162.9 03/30/2015 VISHNU STARKS 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 Ot 162.3 03/30/2015 VISHNU STARKS 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 Ot 250.00 03/30/2015 VISHNU STARKS 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 Ot 272.4 03/30/2015 VISHNU STARKS 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 Ot 414.00 03/30/2015 VISHNU STARKS 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 Ot 793.0 03/30/2015 VISHNU STARKS S 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 Ot V45.82 03/30/2015 VISHNU STARKS S 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 Ot V58.69 03/30/2015 BRANDY FERRO, JAMMIE [...] Ot I25. 10 ATHSCL HEART DISEASE OF [place] CORONARY 04/27/2015 JAMMIE NAVA MD Ot Z51. 11 ENCOUNTER FOR ANTINEOPLASTIC CHEMOTHERAP 04/27/2015 JAMMIE NAVA MD Ot Z79.899 OTHER ALF (CURRENT) DRUG THERAPY 04/27/2015 JAMMIE NAVA MD Ot Z98. 61 CORONARY ANGIOPLASTY STATUS 07/28/2016 JAMMIE NAVA MD Ot C34. 10 MALIGNANT NEOPLASM OF UPPER LOBE, UNSP B 07/28/2016 JAMMIE NAVA MD Ot E11. 9 TYPE 2 DIABETES MELLITUS WITHOUT COMPLIC 07/28/2016 JAMMIE NAVA MD Ot E78. 5 HYPERLIPIDEMIA, UNSPECIFIED 07/28/2016 JAMMIE NAVA MD Ot I25. 10 ATHSCL HEART DISEASE OF [place] CORONARY 07/28/2016 JAMMIE NAVA MD, Ot Z51. 11 ENCOUNTER FOR ANTINEOPLASTIC CHEMOTHERAP 07/28/2016 JAMMIE NAVA MD Ot Z79.899 OTHER MACHINE HEEL BUILDER (CURRENT) DRUG THERAPY 07/28/2016 JAMMIE NAVA MD, [...] MAL LAURA BRONCH/LUNG NOS 07/31/2016 VISHNU STARKS 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 Ot 162.3 MAL LAURA UPPER LOBE LUNG 07/31/2016 VISHNU STARKS 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 Ot 250.00 DIAB CHETNA WO COMPL, TYPE II OR UNSPEC TY 07/31/2016 VISHNU STARKS 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 Ot 272.4 HYPERLIPIDEMIA NEC/NOS 07/31/2016 VISHNU STARKS 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 Ot 414.00 CORON ATHEROSCLER NOS TYPE VESSEL, NATIV 07/31/2016 VISHNU STARKS 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 Ot 793.0 NOSP (ABN) FINDINGS ON [...] Ot I25. 10 ATHSCL HEART DISEASE OF [place] CORONARY 07/31/2016 JAMMIE NAVA MD Ot Z51. 11 ENCOUNTER FOR ANTINEOPLASTIC CHEMOTHERAP 07/31/2016 JAMMIE NAVA MD Ot Z79.899 OTHER MACHINE HEEL BUILDER (CURRENT) DRUG THERAPY 07/31/2016 JAMMIE NAVA MD [...] MAL LAURA BRONCH/LUNG NOS 07/31/2016 VISHNU STARKS 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 Ot 162.3 MAL LAURA UPPER LOBE LUNG 07/31/2016 VISHNU STARKS 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 Ot 250.00 DIAB CHETNA WO COMPL, TYPE II OR UNSPEC TY 07/31/2016 VISHNU STARKS 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 Ot 272.4 HYPERLIPIDEMIA NEC/NOS 07/31/2016 VISHNU STARKS 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 Ot 414.00 CORON ATHEROSCLER NOS TYPE VESSEL, NATIV 07/31/2016 VISHNU STARKS 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 Ot 793.0 NOSP (ABN) FINDINGS ON RADIOLOGICAL OT 07/31/2016 VISHNU STARKS 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 Ot V45.82 PERCUTANEOUS TRANSLUM CORON ANGIOPLASTY 07/31/2016 VISHNU STARKS 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 Ot V58.69 OTH MED,LT,CURRENT USE 07/31/2016 JAMMIE NAVA MD, Ot C34. 10 MALIGNANT NEOPLASM OF UPPER LOBE, UNSP B 07/31/2016 JAMMIE NAVA MD Ot E11. 9 TYPE 2 DIABETES MELLITUS WITHOUT COMPLIC 07/31/2016 JAMMIE NAVA MD, Ot E78. 5 HYPERLIPIDEMIA, UNSPECIFIED 07/31/2016 JAMMIE NAVA MD, Ot I25. 10 ATHSCL HEART DISEASE OF [place] CORONARY 07/31/2016 JAMMIE NAVA MD, Ot Z51. 11 ENCOUNTER FOR ANTINEOPLASTIC CHEMOTHERAP 07/31/2016 JAMMIE NAVA MD Ot Z79.899 OTHER ALF (CURRENT) DRUG THERAPY 07/31/2016 JAMMIE NAVA MD, [...] ENCNTR FOR REMOVAL OF INTERNAL FIXATION 09/12/2016 GAIB VALENCIA MD Ot V72. 84 EXAM PRE-OPERATIVE NOS 09/12/2016 ANNIE FERRO, GABI Katz Ot V74. 8 SCREEN-BACTERIAL DIS NEC 09/12/2016 ESTEVAN FERRO, CHAPO Lares Ot 162.9 MAL LAURA BRONCH/LUNG NOS 09/12/2016 VISHNU STARKS 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 Ot 162.3 MAL LAURA UPPER LOBE LUNG 09/12/2016 VISHNU STARKS 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 Ot 250.00 DIAB CHETNA WO COMPL, TYPE II OR UNSPEC TY 09/12/2016 VISHNU STARKS 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 Ot 272.4 HYPERLIPIDEMIA NEC/NOS 09/12/2016 VISHNU STARKS S 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 Ot 414.00 CORON ATHEROSCLER NOS TYPE VESSEL, NATIV 09/12/2016 VISHNU STARKS 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 Ot 793.0 NOSP (ABN) FINDINGS ON [...] Ot I25. 10 ATHSCL HEART DISEASE OF [place] CORONARY 09/12/2016 JAMMIE NAVA MD Ot Z51. 11 ENCOUNTER FOR ANTINEOPLASTIC CHEMOTHERAP 09/12/2016 JAMMIE NAVA MD, Ot Z79.899 OTHER MACHINE HEEL BUILDER (CURRENT) DRUG THERAPY 09/12/2016 JAMMIE NAVA MD Ot Z98. 61 CORONARY ANGIOPLASTY STATUS 09/12/2016 SRIDHAR BLACK 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 Ot E11.9 TYPE 2 DIABETES MELLITUS WITHOUT COMPLIC 09/12/2016 SRIDHAR BLACKP Ot I25.10 ATHSCL HEART DISEASE OF [place] CORONARY 09/12/2016 SRIDHAR BLACK 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 Ot 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 [place] 09/12/2016 SRIDHAR BLACK 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 Ot R06.02 SHORTNESS OF BREATH 09/12/2016 SRIDHAR BLACK 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 Ot R07.89 OTHER CHEST PAIN 09/12/2016 SRIDHAR BLACK 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 Ot T82.855A STENOSIS OF CORONARY ARTERY STENT, INITI 09/12/2016 SRIDHAR BLACK 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 Ot Z79.84 ALF (CURRENT) USE OF ORAL HYPOGLYC 09/12/2016 SRIDHAR BLACK 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 Ot Z79.899 OTHER MACHINE HEEL BUILDER (CURRENT) DRUG THERAPY 09/12/2016 SRIDHAR BLACK 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 Ot Z82.49 FAMILY HX OF ISCHEM HEART DIS AND OTH DI 09/12/2016 SRIDHAR BLACK 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 Ot Z85.118 PERSONAL HISTORY OF MALIGNANT NEOPLASM O 09/12/2016 SRIDHAR BLACK 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 Ot Z87.891 PERSONAL HISTORY OF NICOTINE DEPENDENCE 09/12/2016 SRIDHAR BLACK 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 Ot Z90.2 ACQUIRED ABSENCE OF LUNG [PART OF] 09/12/2016 SRIDHAR BLACK 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 Ot Z92.21 PERSONAL HISTORY OF ANTINEOPLASTIC CHEMO 09/21/[address] PAIN NOS 09/21/2016 GABI VALENCIA MD Ot V54. 01 ENCNTR FOR REMOVAL OF INTERNAL FIXATION 09/21/2016 GABI VALENCIA MD Ot V72. 84 EXAM PRE-OPERATIVE NOS 09/21/2016 GABI VALENCIA MD Ot V74. 8 SCREEN-BACTERIAL DIS NEC 09/21/2016 ESTEVAN FERRO, CHAPO J Ot 162.9 MAL LAURA BRONCH/LUNG NOS 09/21/2016 VISHNU STARKS 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 Ot 162.3 MAL LAURA UPPER LOBE LUNG 09/21/2016 VISHNU STARKS 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 Ot 250.00 DIAB CHETNA WO COMPL, TYPE II OR UNSPEC TY 09/21/2016 VISHNU STARKS 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 Ot 272.4 HYPERLIPIDEMIA NEC/NOS 09/21/2016 VISHNU STARKS 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 Ot 414.00 CORON ATHEROSCLER NOS TYPE VESSEL, NATIV 09/21/2016 VISHNU STARKS 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 Ot 793.0 NOSP (ABN) FINDINGS ON RADIOLOGICAL OT 09/21/2016 VISHNU STARKSP Ot V45.82 PERCUTANEOUS TRANSLUM CORON ANGIOPLASTY 09/21/2016 VISHNU STARKS 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 Ot V58.69 OTH MED,LT,CURRENT USE 09/21/2016 BRANDY FERRO, [facility] Ot C34. 10 MALIGNANT NEOPLASM OF UPPER LOBE, UNSP B 09/21/2016 JAMMIE NAVA MD Ot E11. 9 TYPE 2 DIABETES MELLITUS WITHOUT COMPLIC 09/21/2016 JAMMIE NAVA MD Ot E78. 5 HYPERLIPIDEMIA, UNSPECIFIED 09/21/2016 JAMMIE NAVA MD Ot I25. 10 ATHSCL HEART DISEASE OF [place] CORONARY 09/21/2016 JAMMIE NAVA MD Ot Z51. 11 ENCOUNTER FOR ANTINEOPLASTIC CHEMOTHERAP 09/21/2016 JAMMIE NAVA MD Ot Z79.899 OTHER ALF (CURRENT) DRUG THERAPY 09/21/2016 JAMMIE NAVA MD Ot Z98. 61 CORONARY ANGIOPLASTY STATUS 09/21/2016 SRIDHAR BLACK 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 Ot E11.9 TYPE 2 DIABETES MELLITUS WITHOUT COMPLIC 09/21/2016 SRIDHAR BLACK 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 Ot I25.10 ATHSCL HEART DISEASE OF [place] CORONARY 09/21/2016 SRIDHAR BLACK L 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 Ot 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 [place] 09/21/2016 SRIDHAR BLACK L 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 Ot R06.02 SHORTNESS OF BREATH 09/21/2016 SRIDHAR BLACK L 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 Ot R07.89 OTHER CHEST PAIN 09/21/2016 SRIDHAR BLACK L 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 Ot T82.855A STENOSIS OF CORONARY ARTERY STENT, INITI 09/21/2016 SRIDHAR BLACK L 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 Ot Z79.84 ALF (CURRENT) USE OF ORAL HYPOGLYC 09/21/2016 SRIDHAR BLACK L 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 Ot Z79.899 OTHER MACHINE HEEL BUILDER (CURRENT) DRUG THERAPY 09/21/2016 SRIDHAR BLACK L 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 Ot Z82.49 FAMILY HX OF ISCHEM HEART DIS AND OTH DI 09/21/2016 SRIDHAR BLACK L 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 Ot Z85.118 PERSONAL HISTORY OF MALIGNANT NEOPLASM O 09/21/2016 SRIDHAR BLACK L 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 Ot Z87.891 PERSONAL HISTORY OF NICOTINE DEPENDENCE 09/21/2016 SRIDHAR BLACK L 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 Ot Z90.2 ACQUIRED ABSENCE OF LUNG [PART OF] 09/21/2016 SRIDHAR BLACK L 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 Ot Z92.21 PERSONAL HISTORY OF ANTINEOPLASTIC CHEMO 09/22/2016 AKANKSHA FERRO FACC, ALI FACP CCDS Ot C34.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, LEFT B 09/22/2016 AKANKSHA FERRO FACC, [facility] CCD[facility] Ot E13.9 OTHER SPECIFIED DIABETES MELLITUS WITHOU 09/22/2016 AKANKSHA FERRO FACC, [facility] CCDS Ot E78.4 OTHER HYPERLIPIDEMIA 09/22/2016 AKANKSHA FERRO FACC, ALI FACP CCDS Ot I25.10 ATHSCL HEART DISEASE OF [place] CORONARY 09/22/2016 AKANKSHA FERRO FACC, ALI FACP CCDS Ot R00.2 PALPITATIONS 09/22/2016 AKANKSHA FERRO FACC, [facility] CCDS Ot R06.02 SHORTNESS OF BREATH 09/22/2016 AKANKSHA FERRO FACC, [facility] CCDS Ot Z87.891 PERSONAL HISTORY OF NICOTINE DEPENDENCE 09/23/2016 SRIDHAR BLACK 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 Ot E11.9 TYPE 2 DIABETES MELLITUS WITHOUT COMPLIC 09/23/2016 SRIDHAR BLACK 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 Ot I25.10 ATHSCL HEART DISEASE OF [place] CORONARY 09/23/2016 SRIDHAR BLACK L 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 Ot 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 [place] 09/23/2016 SRIDHAR BLACK 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 Ot R06.02 SHORTNESS OF BREATH 09/23/2016 SRIDHAR BLACK 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 Ot R07.89 OTHER CHEST PAIN 09/23/2016 SRIDHAR BLACK 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 Ot T82.855A STENOSIS OF CORONARY ARTERY STENT, INITI 09/23/2016 SRIDHAR BLACK 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 Ot Z79.84 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 ORAL HYPOGLYC 09/23/2016 SRIDHAR BLACK L 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 Ot Z79.899 OTHER MACHINE HEEL BUILDER (CURRENT) DRUG THERAPY 09/23/2016 SRIDHAR BLACK 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 Ot Z82.49 FAMILY HX OF ISCHEM HEART DIS AND OTH DI 09/23/2016 SRIDHAR BLACK L 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 Ot Z85.118 PERSONAL HISTORY OF MALIGNANT NEOPLASM O 09/23/2016 SRIDHAR BLACK 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 Ot Z87.891 PERSONAL HISTORY OF NICOTINE DEPENDENCE 09/23/2016 SRIDHAR BLACK L 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 Ot Z90.2 ACQUIRED ABSENCE OF LUNG [PART OF] 09/23/2016 SRIDHAR BLACK L 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 Ot Z92.21 PERSONAL HISTORY OF ANTINEOPLASTIC CHEMO 10/03/2016 AKANKSHA FERRO FACC, [facility] FACP CCDS Ot C34.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, LEFT B 10/03/2016 AKANKSHA FERRO FACC, [facility] CCDS Ot E13.9 OTHER SPECIFIED DIABETES MELLITUS WITHOU 10/03/2016 AKANKSHA FERRO FACC, ALI FACP CCDS Ot E78.4 OTHER HYPERLIPIDEMIA 10/03/2016 AKANKSHA FERRO FACC, ALI FACP CCDS Ot I25.10 ATHSCL HEART DISEASE OF [place] CORONARY 10/03/2016 AKANKSHA FERRO FACC, [facility] CCDS Ot R00.2 PALPITATIONS 10/03/2016 AKANKSHA FERRO FACC, [facility] FACP CCDS Ot R06.02 SHORTNESS OF BREATH 10/03/2016 AKANKSHA FERRO [facility], [facility] Ot Z87.891 PERSONAL HISTORY OF NICOTINE DEPENDENCE 10/05/2016 SRIDHAR BLACK 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 Ot E11.9 TYPE 2 DIABETES MELLITUS WITHOUT COMPLIC 10/05/2016 SRIDHAR BLACK L 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 Ot I25.10 ATHSCL HEART DISEASE OF [place] CORONARY 10/05/2016 SRIDHAR BLACK L 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 Ot 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 [place] 10/05/2016 SRIDHAR BLACK L 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 Ot R06.02 SHORTNESS OF BREATH 10/05/2016 SRIDHAR BLACK L 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 Ot R07.89 OTHER CHEST PAIN 10/05/2016 SRIDHAR BLACK L 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 Ot T82.855A STENOSIS OF CORONARY ARTERY STENT, INITI 10/05/2016 SRIDHAR BLACK L 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 Ot Z79.84 ALF (CURRENT) USE OF ORAL HYPOGLYC 10/05/2016 SRIDHAR BLACK L 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 Ot Z79.899 OTHER MACHINE HEEL BUILDER (CURRENT) DRUG THERAPY 10/05/2016 SRIDHAR BLACK L 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 Ot Z82.49 FAMILY HX OF ISCHEM HEART DIS AND OTH DI 10/05/2016 SRIDHAR BLACK L 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 Ot Z85.118 PERSONAL HISTORY OF MALIGNANT NEOPLASM O 10/05/2016 SRIDHAR BLACK 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 Ot Z87.891 PERSONAL HISTORY OF NICOTINE DEPENDENCE 10/05/2016 SRIDHAR BLACK L 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 Ot Z90.2 ACQUIRED ABSENCE OF LUNG [PART OF] 10/05/2016 SRIDHAR BLACK L 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 Ot Z92.21 PERSONAL HISTORY OF ANTINEOPLASTIC CHEMO 03/08/2017 [address] PAIN NOS 03/08/2017 GABI VALENCIA MD Ot V54. 01 ENCNTR FOR REMOVAL OF INTERNAL FIXATION 03/08/2017 GABI VALENCIA MD Ot V72. 84 EXAM PRE-OPERATIVE NOS 03/08/2017 GABI VALENCIA MD Ot V74. 8 SCREEN-BACTERIAL DIS NEC 03/08/2017 ESTEVAN FERRO, CHAPO Lares Ot 162.9 MAL LAURA BRONCH/LUNG NOS 03/08/2017 VISHNU STARKS 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 Ot 162.3 MAL LAURA UPPER LOBE LUNG 03/08/2017 VISHNU STARKS 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 Ot 250.00 DIAB CHETNA WO COMPL, TYPE II OR UNSPEC TY 03/08/2017 VISHNU STARKS 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 Ot 272.4 HYPERLIPIDEMIA NEC/NOS 03/08/2017 VISHNU STARKS 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 Ot 414.00 CORON ATHEROSCLER NOS TYPE VESSEL, NATIV 03/08/2017 VISHNU STARKS 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 Ot 793.0 NOSP (ABN) FINDINGS ON [...] Ot I25. 10 ATHSCL HEART DISEASE OF [place] CORONARY 03/08/2017 JAMMIE NAVA MD Ot Z51. 11 ENCOUNTER FOR ANTINEOPLASTIC CHEMOTHERAP 03/08/2017 JAMMIE NAVA MD Ot Z79.899 OTHER ALF [...] Ot E78.4 OTHER HYPERLIPIDEMIA 03/08/2017 AKANKSHA FERRO [facility], [facility] CCDS Ot I25.10 ATHSCL HEART DISEASE OF [place] CORONARY 03/08/2017 AKANKSHA FERRO [facility], ALI FACP CCDS Ot R00.2 PALPITATIONS 03/08/2017 AKANKSHA FERRO [facility], ALI FACP CCDS Ot R06.02 SHORTNESS OF BREATH 03/08/2017 AKANKSHA FERRO [facility], ALI FACP CCDS Ot Z87.891 PERSONAL HISTORY OF NICOTINE DEPENDENCE 12/31/2017 GABI VALENCIA MD Ot V54. 01 ENCNTR FOR REMOVAL OF INTERNAL FIXATION 12/31/2017 GABI VALENCIA MD Ot V72. 84 EXAM PRE-OPERATIVE NOS 12/31/2017 GABI VALENCIA MD Ot V74. 8 SCREEN-BACTERIAL DIS NEC 12/31/2017 ESTEVAN FERRO, CHAPO J Ot 162.9 MAL LAURA BRONCH/LUNG NOS 12/31/2017 VISHNU STARKS 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 Ot 162.3 MAL LAURA UPPER LOBE LUNG 12/31/2017 VISHNU STARKS 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 Ot 250.00 DIAB CHETNA WO COMPL, TYPE II OR UNSPEC TY 12/31/2017 VISHNU STARKS S 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 Ot 272.4 HYPERLIPIDEMIA NEC/NOS 12/31/2017 VISHNU STARKS 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 Ot 414.00 CORON ATHEROSCLER NOS TYPE VESSEL, NATIV 12/31/2017 VISHNU STARKS 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 Ot 793.0 NOSP (ABN) FINDINGS ON RADIOLOGICAL OT 12/31/2017 VISHNU STARKS 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 Ot V45.82 PERCUTANEOUS TRANSLUM CORON ANGIOPLASTY 12/31/2017 VISHNU STARKS 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 Ot V58.69 OT MED,LT,CURRENT USE 12/31/2017 JAMMIE NAVA MD Ot C34. 10 MALIGNANT NEOPLASM OF UPPER LOBE, UNSP B 12/31/2017 JAMMIE NAVA MD Ot E11. 9 TYPE 2 DIABETES MELLITUS WITHOUT COMPLIC 12/31/2017 JAMMIE NAVA MD Ot E78. 5 HYPERLIPIDEMIA, UNSPECIFIED 12/31/2017 JAMMIE NAVA MD Ot I25. 10 ATHSCL HEART DISEASE OF [place] CORONARY 12/31/2017 JAMMIE NAVA MD Ot Z51. 11 ENCOUNTER FOR ANTINEOPLASTIC CHEMOTHERAP 12/31/2017 JAMMIE NAVA MD Ot Z79.899 OTHER MACHINE HEEL BUILDER (CURRENT) DRUG THERAPY 12/31/2017 BRANDY FERRO, JAMMIE Ot Z98. 61 CORONARY ANGIOPLASTY STATUS 12/31/2017 AKANKSHA FERRO [facility], ALI FACP CCDS Ot C34.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, LEFT B 12/31/2017 AKANKSHA FERRO FAC, ALI FACP CCDS Ot E13.9 OTHER SPECIFIED DIABETES MELLITUS WITHOU 12/31/2017 AKANKSHA FERRO FACC, ALI FACP CCDS Ot E78.4 OTHER HYPERLIPIDEMIA 12/31/2017 AKANKSHA FERRO [facility], ALI FACP CCDS Ot I25.10 ATHSCL HEART DISEASE OF [place] CORONARY 12/31/2017 AKANKSHA FERRO [facility], ALI FACP CCDS Ot R00.2 PALPITATIONS 12/31/2017 AKANKSHA FERRO [facility], ALI FACP CCDS Ot R06.02 SHORTNESS OF BREATH 12/31/2017 AKANKSHA FERRO FACC, ALI FACP CCDS Ot Z87.891 PERSONAL HISTORY OF NICOTINE DEPENDENCE 01/01/2018 SRAVAN LOVE MD Ot E11 .9 [...] MD Ot I25.10 ATHSCL HEART DISEASE OF [place] CORONARY 01/01/2018 SRAVAN LOVE MD Ot I69.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 01/01/2018 SRAVAN LOVE MD Ot K21 .9 GASTRO-ESOPHAGEAL REFLUX DISEASE WITHOUT 01/01/2018 SRAVAN LOVE MD Ot Z79.84 ALF (CURRENT) USE OF ORAL HYPOGLYC 01/01/2018 SRAVAN LOVE MD Ot Z79.899 OTHER ALF (CURRENT) DRUG THERAPY 01/01/2018 SRAVAN LOVE MD [...] MD Ot I25.10 ATHSCL HEART DISEASE OF [place] CORONARY 01/01/2018 SRAVAN LOVE MD Ot I69.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 01/01/2018 SRAVAN LOVE MD Ot K21 .9 GASTRO-ESOPHAGEAL REFLUX DISEASE WITHOUT 01/01/2018 SRAVAN LOVE MD Ot 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.84 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 ORAL HYPOGLYC 01/01/2018 SRAVAN LOVE MD Ot Z79.899 OTHER ALF (CURRENT) DRUG THERAPY 01/01/2018 SRAVAN LOVE MD [...] MD Ot I25.10 ATHSCL HEART DISEASE OF [place] CORONARY 01/03/2018 SRAVAN LOVE MD Ot I69.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 01/03/2018 SRAVAN LOVE MD, Ot K21 .9 GASTRO-ESOPHAGEAL REFLUX DISEASE WITHOUT 01/03/2018 SRAVAN LOVE MD Ot Z79.84 ALF (CURRENT) USE OF ORAL HYPOGLYC 01/03/2018 SRAVAN LOVE MD Ot Z79.899 OTHER MACHINE HEEL BUILDER (CURRENT) DRUG THERAPY 01/03/2018 SRAVAN LOVE MD [...] MD Ot I25.10 ATHSCL HEART DISEASE OF [place] CORONARY 01/03/2018 SRAVAN LOVE MD Ot I69.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 01/03/2018 SRAVAN LOVE MD Ot K21 .9 GASTRO-ESOPHAGEAL REFLUX DISEASE WITHOUT 01/03/2018 SRAVAN LOVE MD Ot Z79.84 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 01 ENCNTR FOR REMOVAL OF INTERNAL FIXATION 03/05/2018 GABI VALENCIA MD Ot V72. 84 EXAM PRE-OPERATIVE NOS 03/05/2018 GABI VALENCIA MD Ot V74. 8 SCREEN-BACTERIAL DIS NEC 03/05/2018 ESTEVAN FERRO, CHAPO Lares Ot 162.9 MAL LAURA BRONCH/LUNG NOS 03/05/2018 VISHNU STARKS 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 Ot 162.3 MAL LAURA UPPER LOBE LUNG 03/05/2018 VISHNU STARKS 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 Ot 250.00 DIAB CHETNA WO COMPL, TYPE II OR UNSPEC TY 03/05/2018 VISHNU STARKS 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 Ot 272.4 HYPERLIPIDEMIA NEC/NOS 03/05/2018 VISHNU STARKS 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 Ot 414.00 CORON ATHEROSCLER NOS TYPE VESSEL, NATIV 03/05/2018 VISHNU STARKS 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 Ot 793.0 NOSP (ABN) FINDINGS ON [...] Ot I25. 10 ATHSCL HEART DISEASE OF [place] CORONARY 03/05/2018 JAMMIE NAVA MD Ot Z51. 11 ENCOUNTER FOR ANTINEOPLASTIC CHEMOTHERAP 03/05/2018 JAMMIE NAVA MD Ot Z79.899 OTHER MACHINE HEEL BUILDER (CURRENT) DRUG THERAPY 03/05/2018 JAMMIE NAVA MD [...] CCDS Ot I25.10 ATHSCL HEART DISEASE OF [place] CORONARY 03/05/2018 AKANKSHA FERRO FACC, ALI FACP CCDS Ot R00.2 PALPITATIONS 03/05/2018 AKANKSHA FERRO FACC, ALI FACP CCDS Ot R06.02 SHORTNESS OF BREATH 03/05/2018 AKANKSHA FERRO FACC, ALI FACP CCDS Ot Z87.891 PERSONAL HISTORY OF NICOTINE DEPENDENCE 03/07/2018 LISSA OATES SALES AGENT PROTECTIVE SERVICE Ot G47.30 SLEEP APNEA, UNSPECIFIED 03/07/2018 VIKTOR OATESINE E SALES AGENT PROTECTIVE SERVICE Ot J44.9 CHRONIC OBSTRUCTIVE PULMONARY DISEASE, U 03/07/2018 LISSA OATES SALES AGENT PROTECTIVE SERVICE Ot R06.02 SHORTNESS OF BREATH 03/07/2018 LISSA OATES SALES AGENT PROTECTIVE SERVICE Ot Z72.0 TOBACCO USE 03/07/2018 LISSA OATES SALES AGENT PROTECTIVE SERVICE Ot Z85.118 PERSONAL HISTORY OF MALIGNANT NEOPLASM O 03/12/2018 VIKTOR OATESINE E SALES AGENT PROTECTIVE SERVICE Ot C34.90 MALIGNANT NEOPLASM OF UNSP PART OF UNSP 03/12/2018 VIKTOR OATESINE E SALES AGENT PROTECTIVE SERVICE Ot G47.30 SLEEP APNEA, UNSPECIFIED 03/12/2018 VIKTOR OATESINE E SALES AGENT PROTECTIVE SERVICE Ot J43.9 EMPHYSEMA, UNSPECIFIED 03/12/2018 VIKTOR OATESINE E SALES AGENT PROTECTIVE SERVICE Ot K76.0 FATTY (CHANGE OF) LIVER, NOT ELSEWHERE C 03/12/2018 VIKTOR OATESINE E SALES AGENT PROTECTIVE SERVICE Ot Z72.0 TOBACCO USE 03/12/2018 LISSA OATES SALES AGENT PROTECTIVE SERVICE Ot C34.90 MALIGNANT NEOPLASM OF UNSP PART OF UNSP 03/12/2018 VIKTOR OATESINE E SALES AGENT PROTECTIVE SERVICE Ot G47.30 SLEEP APNEA, UNSPECIFIED 03/12/2018 VIKTOR OATESINE E SALES AGENT PROTECTIVE SERVICE Ot J43.9 EMPHYSEMA, UNSPECIFIED 03/12/2018 VIKTOR OATESINE E SALES AGENT PROTECTIVE SERVICE Ot K76.0 FATTY (CHANGE OF) LIVER, NOT ELSEWHERE C 03/12/2018 VIKOTR OATESINE E SALES AGENT PROTECTIVE SERVICE Ot Z72.0 TOBACCO USE 03/19/2018 AKANKSHA FERRO [...] CCDS Ot I25.10 ATHSCL HEART DISEASE OF [place] CORONARY 03/20/2018 AKANKSHA FERRO FACC, ALI FACP CCDS Ot K21.9 GASTRO-ESOPHAGEAL REFLUX DISEASE WITHOUT 03/20/2018 AKANKSHA FERRO FACC, ALI FACP CCDS Ot R00.2 PALPITATIONS 03/20/2018 AKANKSHA FERRO FACC, ALI FACP CCDS Ot Z79.82 ALF (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 03/20/2018 AKANKSHA FERRO FACC, ALI FACP CCDS Ot Z79.84 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 ORAL HYPOGLYC 03/20/2018 AKANKSHA FERRO FACC, ALI FACP CCDS Ot Z79.899 OTHER MACHINE HEEL BUILDER (CURRENT) DRUG THERAPY 03/20/2018 AKANKSHA FERRO FACC, [...] MAL LAURA BRONCH/LUNG NOS 03/29/2018 VISHNU STARKS 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 Ot 162.3 MAL LAURA UPPER LOBE LUNG 03/29/2018 VISHNU STARKS 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 Ot 250.00 DIAB CHETNA WO COMPL, TYPE II OR UNSPEC TY 03/29/2018 VISHNU STARKS 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 Ot 272.4 HYPERLIPIDEMIA NEC/NOS 03/29/2018 VISHNU STARKS 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 Ot 414.00 CORON ATHEROSCLER NOS TYPE VESSEL, NATIV 03/29/2018 VISHNU STARKS 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 Ot 793.0 NOSP (ABN) FINDINGS ON RADIOLOGICAL OT 03/29/2018 VISHNU STARKS 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 Ot V45.82 PERCUTANEOUS TRANSLUM CORON ANGIOPLASTY 03/29/2018 VISHNU STARKS 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 Ot V58.69 OT MED,LT,CURRENT USE 03/29/2018 JAMMIE NAVA MD Ot C34. 10 MALIGNANT NEOPLASM OF UPPER LOBE, UNSP B 03/29/2018 JAMMIE NAVA MD Ot E11. 9 TYPE 2 DIABETES MELLITUS WITHOUT COMPLIC 03/29/2018 JAMMIE NAVA MD Ot E78. 5 HYPERLIPIDEMIA, UNSPECIFIED 03/29/2018 JAMMIE NAVA MD Ot I25. 10 ATHSCL HEART DISEASE OF [place] CORONARY 03/29/2018 JAMMIE NAVA MD Ot Z51. 11 ENCOUNTER FOR ANTINEOPLASTIC CHEMOTHERAP 03/29/2018 JAMMIE NAVA MD Ot Z79.899 OTHER MACHINE HEEL BUILDER (CURRENT) DRUG THERAPY 03/29/2018 JAMMIE NAVA MD [...] CCDS Ot I25.10 ATHSCL HEART DISEASE OF [place] CORONARY 03/29/2018 AKANKSHA FERRO FACC, DELBERT FACP CCDS Ot R00.2 PALPITATIONS 03/29/2018 AKANKSHA FERRO FACC, DELBERT FACP CCDS Ot R06.02 SHORTNESS OF BREATH 03/29/2018 AKANKSHA FERRO FACC, DELBERT FACP CCDS Ot Z87.891 PERSONAL HISTORY OF NICOTINE DEPENDENCE 03/29/2018 LISSA OATES APRN Ot G47.30 SLEEP APNEA, UNSPECIFIED 03/29/2018 LISSA OATES SALES AGENT PROTECTIVE SERVICE Ot J44.9 CHRONIC OBSTRUCTIVE PULMONARY DISEASE, U 03/29/2018 LISSA OATES SALES AGENT PROTECTIVE SERVICE Ot R06.02 SHORTNESS OF BREATH 03/29/2018 LISSA OATES SALES AGENT PROTECTIVE SERVICE Ot Z72.0 TOBACCO USE 03/29/2018 LISSA OATES SALES AGENT PROTECTIVE SERVICE Ot Z85.118 PERSONAL HISTORY OF MALIGNANT NEOPLASM O 03/29/2018 LISSA OATES SALES AGENT PROTECTIVE SERVICE Ot C34.90 MALIGNANT NEOPLASM OF UNSP PART OF UNSP 03/29/2018 LISSA OATES SALES AGENT PROTECTIVE SERVICE Ot G47.30 SLEEP APNEA, UNSPECIFIED 03/29/2018 LISSA OATES SALES AGENT PROTECTIVE SERVICE Ot J43.9 EMPHYSEMA, UNSPECIFIED 03/29/2018 LISSA OATES SALES AGENT PROTECTIVE SERVICE Ot K76.0 FATTY (CHANGE OF) LIVER, NOT ELSEWHERE C 03/29/2018 LISSA OATES SALES AGENT PROTECTIVE SERVICE Ot Z72.0 TOBACCO USE 03/29/2018 AKANKSHA FERRO FACC, DELBERT FACP CCDS Ot E11.9 TYPE 2 DIABETES MELLITUS WITHOUT COMPLIC 03/29/2018 DELBERT VALE MD, FACC FACP CCDS Ot G47.33 OBSTRUCTIVE SLEEP APNEA (ADULT) (PEDIATR 03/29/2018 AKANKSHA FERRO FACC, DELBERT FACP CCDS Ot I25.10 ATHSCL HEART DISEASE OF [place] CORONARY 03/29/2018 AKANKSHA FERRO FACC, DELBERT FACP CCDS Ot K21.9 GASTRO-ESOPHAGEAL REFLUX DISEASE WITHOUT 03/29/2018 AKANKSHA FERRO FACC, DELBERT FACP CCDS Ot R00.2 PALPITATIONS 03/29/2018 AKANKSHA FERRO FACC, DELBERT FACP CCDS Ot Z79.82 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 03/29/2018 DELBERT VALE MD, FACC FACP CCDS Ot Z79.84 ALF (CURRENT) USE OF ORAL HYPOGLYC 03/29/2018 DELBERT VALE MD, FACC FACP CCDS Ot Z79.899 OTHER ALF (CURRENT) DRUG THERAPY 03/29/2018 DELBERT VALE MD, [...] Ot I25. 10 ATHSCL HEART DISEASE OF [place] CORONARY 03/29/2018 JAMMIE NAVA MD, Ot Z51. 11 ENCOUNTER FOR ANTINEOPLASTIC CHEMOTHERAP 03/29/2018 JAMMIE NAVA MD, Ot Z79.899 OTHER MACHINE HEEL BUILDER (CURRENT) DRUG THERAPY 03/29/2018 JAMMIE NAVA MD [...] MD Ot I25.10 ATHSCL HEART DISEASE OF [place] CORONARY 04/06/2018 ADRIEL WHEELER MD Ot J44 .9 CHRONIC OBSTRUCTIVE PULMONARY DISEASE, U 04/06/2018 ADRIEL WHEELER MD, Ot K21 .9 GASTRO-ESOPHAGEAL REFLUX DISEASE WITHOUT 04/06/2018 ADRIEL WHEELER MD, Ot Z79.82 ALF (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 04/06/2018 ADRIEL WHEELER MD Ot Z79.84 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 ORAL HYPOGLYC 04/06/2018 ADRIEL WHEELER MD, Ot Z79.899 OTHER ALF (CURRENT) DRUG THERAPY 04/06/2018 ADRIEL WHEELER MD, Ot Z86.73 PRSNL HX OF TIA (TIA), AND CEREB INFRC W 04/06/2018 ADRIEL WHEELER MD, Ot Z87.891 PERSONAL HISTORY OF NICOTINE DEPENDENCE 05/29/2018 LISSA OATES SALES AGENT PROTECTIVE SERVICE Ot C34.90 MALIGNANT NEOPLASM OF UNSP PART OF UNSP 05/29/2018 LISSA OATES SALES AGENT PROTECTIVE SERVICE Ot G47.30 SLEEP APNEA, UNSPECIFIED 05/29/2018 LISSA OATES SALES AGENT PROTECTIVE SERVICE Ot J43.9 EMPHYSEMA, UNSPECIFIED 05/29/2018 LISSA OATES SALES AGENT PROTECTIVE SERVICE Ot K76.0 FATTY (CHANGE OF) LIVER, NOT ELSEWHERE C 05/29/2018 LISSA OATES SALES AGENT PROTECTIVE SERVICE Ot Z72.0 TOBACCO USE 05/29/2018 AKANKSHA FERRO FACC, DELBERT FACP CCDS Ot E11.9 TYPE 2 DIABETES MELLITUS WITHOUT COMPLIC 05/29/2018 AKANKSHA FERRO FACC, DELBERT FACP CCDS Ot G47.33 OBSTRUCTIVE SLEEP APNEA (ADULT) (PEDIATR 05/29/2018 AKANKSHA FERRO FACC, ALI FACP CCDS Ot I25.10 ATHSCL HEART DISEASE OF [place] CORONARY 05/29/2018 AKANKSHA FERRO FACC, DELBERT FACP CCDS Ot K21.9 GASTRO-ESOPHAGEAL REFLUX DISEASE WITHOUT 05/29/2018 AKANKSHA FERRO FACC, DELBERT FACP CCDS Ot R00.2 PALPITATIONS 05/29/2018 AKANKSHA FERRO FACC, DELBERT FACP CCDS Ot Z79.82 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 05/29/2018 AKANKSHA FERRO FACC, DELBERT FACP CCDS Ot Z79.84 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 ORAL HYPOGLYC 05/29/2018 AKANKSHA FERRO FACC, ALI FACP CCDS Ot Z79.899 OTHER MACHINE HEEL BUILDER (CURRENT) DRUG THERAPY 05/29/2018 AKANKSHA FERRO FACC, DELBERT FACP CCDS Ot Z82.49 FAMILY HX OF ISCHEM HEART DIS AND OTH DI 05/29/2018 AKANKSHA FERRO FAC, DELBERT [facility] CCDS Ot Z85.118 PERSONAL HISTORY OF MALIGNANT NEOPLASM O 05/29/2018 AKANKSHA CHAMBERS, DELBERT FACP CCDS Ot Z86.73 PRSNL HX OF TIA (TIA), AND CEREB INFRC W 05/29/2018 AKANKSHA FERRO FAC, ALI [facility] CCDS Ot Z87.891 PERSONAL HISTORY OF NICOTINE DEPENDENCE 05/29/2018 AKANKSHA CHAMBERS, ALI FACP CCDS Ot Z95.5 PRESENCE OF CORONARY ANGIOPLASTY IMPLANT 06/12/2018 LISSA OATES SALES AGENT PROTECTIVE SERVICE Ot C34.90 MALIGNANT NEOPLASM OF UNSP [facility] 06/12/2018 LISSA OATES APRN Ot G47.30 SLEEP APNEA, UNSPECIFIED 06/12/2018 LISSA OATES SALES AGENT PROTECTIVE SERVICE Ot J43.9 EMPHYSEMA, UNSPECIFIED 06/12/2018 LISSA OATES SALES AGENT PROTECTIVE SERVICE Ot K76.0 FATTY (CHANGE OF) LIVER, NOT ELSEWHERE C 06/12/2018 LISSA OATES SALES AGENT PROTECTIVE SERVICE Ot Z72.0 TOBACCO USE 06/14/2018 PAMELA RAMSEY 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 Ot K59. 09 OTHER CONSTIPATION 06/14/2018 PAMELA RAMSEY 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 Ot M43.8X6 OTHER SPECIFIED DEFORMING DORSOPATHIES, 06/14/2018 PAMELA RAMSEY 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 Ot M47.816 SPONDYLOSIS W/O MYELOPATHY OR RADICULOPA 07/15/2018 LISSA OATES SALES AGENT PROTECTIVE SERVICE Ot C34.90 MALIGNANT NEOPLASM OF UNSP [facility] 07/15/2018 LISSA OATES APRN Ot G47.30 SLEEP APNEA, UNSPECIFIED 07/15/2018 LISSA OATES SALES AGENT PROTECTIVE SERVICE Ot J43.9 EMPHYSEMA, UNSPECIFIED 07/15/2018 LISSA OATES APRN Ot K76.0 FATTY (CHANGE OF) LIVER, NOT ELSEWHERE C 07/15/2018 LISSA OATES SALES AGENT PROTECTIVE SERVICE Ot Z72.0 TOBACCO USE 07/15/2018 LISSA OATES SALES AGENT PROTECTIVE SERVICE Ot C34.90 MALIGNANT NEOPLASM OF UNSP [facility] 07/15/2018 LISSA OATES SALES AGENT PROTECTIVE SERVICE Ot G47.30 SLEEP APNEA, UNSPECIFIED 07/15/2018 LISSA OATES APRN Ot J43.9 EMPHYSEMA, UNSPECIFIED 07/15/2018 LISSA OATES APRN Ot K76.0 FATTY (CHANGE OF) LIVER, NOT ELSEWHERE C 07/15/2018 LISSA OATES APRN Ot Z72.0 TOBACCO USE 07/29/2018 PAMELA RAMSEYP Ot K59. 09 OTHER CONSTIPATION 07/29/2018 PAMELA RAMSEY 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 Ot M43.8X6 OTHER SPECIFIED DEFORMING DORSOPATHIES, 07/29/2018 PAMELA RAMSEY 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 Ot M47.816 SPONDYLOSIS W/O MYELOPATHY OR RADICULOPA 08/06/2018 ESTEVAN FERRO, CHAPO J Ot 162.9 MAL LAURA BRONCH/LUNG NOS 08/06/2018 VISHNU STARKS 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 Ot 162.3 MAL LAURA UPPER LOBE LUNG 08/06/2018 VISHNU STARKS 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 Ot 250.00 DIAB CHETNA WO COMPL, TYPE II OR UNSPEC TY 08/06/2018 VISHNU STARKS 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 Ot 272.4 HYPERLIPIDEMIA NEC/NOS 08/06/2018 VISHNU STARKS 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 Ot 414.00 CORON ATHEROSCLER NOS TYPE VESSEL, NATIV 08/06/2018 VISHNU STARKS 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 Ot 793.0 NOSP (ABN) FINDINGS ON [...] Ot I25. 10 ATHSCL HEART DISEASE OF [place] CORONARY 08/06/2018 JAMMIE NAVA MD Ot Z51. 11 ENCOUNTER FOR ANTINEOPLASTIC CHEMOTHERAP 08/06/2018 JAMMIE NAVA MD Ot Z79.899 OTHER ALF (CURRENT) DRUG THERAPY 08/06/2018 JAMMIE NAVA MD, Ot Z98. 61 CORONARY ANGIOPLASTY STATUS 08/06/2018 AKANKSHA FERRO FACC, DELBERT FACP CCDS Ot C34.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, LEFT B 08/06/2018 AKANKSHA FERRO FACC, ALI FACP CCDS Ot E13.9 OTHER SPECIFIED DIABETES MELLITUS WITHOU 08/06/2018 AKANKSHA FERRO FACC, ALI FACP CCDS Ot E78.4 OTHER HYPERLIPIDEMIA 08/06/2018 AKANKSHA FERRO FACC, ALI FACP CCDS Ot I25.10 ATHSCL HEART DISEASE OF [place] CORONARY 08/06/2018 AKANKSHA FERRO FACC, ALI FACP CCDS Ot R00.2 PALPITATIONS 08/06/2018 AKANKSHA FERRO FACC, ALI FACP CCDS Ot R06.02 SHORTNESS OF BREATH 08/06/2018 AKANKSHA FERRO FACC, ALI FACP CCDS Ot Z87.891 PERSONAL HISTORY OF NICOTINE DEPENDENCE 08/06/2018 LISSA OATES SALES AGENT PROTECTIVE SERVICE Ot G47.30 SLEEP APNEA, UNSPECIFIED 08/06/2018 LISSA OATES SALES AGENT PROTECTIVE SERVICE Ot J44.9 CHRONIC OBSTRUCTIVE PULMONARY DISEASE, U 08/06/2018 LISSA OATES SALES AGENT PROTECTIVE SERVICE Ot R06.02 SHORTNESS OF BREATH 08/06/2018 LISSA OATES SALES AGENT PROTECTIVE SERVICE Ot Z72.0 TOBACCO USE 08/06/2018 LISSA OATES SALES AGENT PROTECTIVE SERVICE Ot Z85.118 PERSONAL HISTORY OF MALIGNANT NEOPLASM O 08/06/2018 LISSA OATES SALES AGENT PROTECTIVE SERVICE Ot C34.90 MALIGNANT NEOPLASM OF UNSP PART OF UNSP 08/06/2018 LISSA OATES SALES AGENT PROTECTIVE SERVICE Ot G47.30 SLEEP APNEA, UNSPECIFIED 08/06/2018 LISSA OATES SALES AGENT PROTECTIVE SERVICE Ot J43.9 EMPHYSEMA, UNSPECIFIED 08/06/2018 LISSA OATES SALES AGENT PROTECTIVE SERVICE Ot K76.0 FATTY (CHANGE OF) LIVER, NOT ELSEWHERE C 08/06/2018 LISSA OATES SALES AGENT PROTECTIVE SERVICE Ot Z72.0 TOBACCO USE 08/06/2018 AKANKSHA FERRO FACC, DELBERT FACP CCDS Ot E11.9 TYPE 2 DIABETES MELLITUS WITHOUT COMPLIC 08/06/2018 AKANKSHA FERRO FACC, ALI FACP CCDS Ot G47.33 OBSTRUCTIVE SLEEP APNEA (ADULT) (PEDIATR 08/06/2018 AKANKSHA FERRO FACC, ALI FACP CCDS Ot I25.10 ATHSCL HEART DISEASE OF [place] CORONARY 08/06/2018 AKANKSHA FERRO FACC, DELBERT FACP CCDS Ot K21.9 GASTRO-ESOPHAGEAL REFLUX DISEASE WITHOUT 08/06/2018 AKANKSHA FERRO FACC, ALI FACP CCDS Ot R00.2 PALPITATIONS 08/06/2018 AKANKSHA FERRO FACC, ALI FACP CCDS Ot Z79.82 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 08/06/2018 AKANKSHA FERRO FACC, ALI FACP CCDS Ot Z79.84 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 ORAL HYPOGLYC 08/06/2018 AKANKSHA FERRO FACC, ALI FACP CCDS Ot Z79.899 OTHER ALF (CURRENT) DRUG THERAPY 08/06/2018 AKANKSHA FERRO FACC, [...] OF CORONARY ANGIOPLASTY IMPLANT 08/06/2018 PAMELA RAMSEY 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 Ot K59. 09 OTHER CONSTIPATION 08/06/2018 PAMELA RAMSEY 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 Ot M43.8X6 OTHER SPECIFIED DEFORMING DORSOPATHIES, 08/06/2018 PAMELA RAMSEY 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 Ot M47.816 SPONDYLOSIS W/O MYELOPATHY OR RADICULOPA 08/06/2018 LISSA OATES APRN Ot G47.30 SLEEP APNEA, UNSPECIFIED 08/06/2018 LISSA OATES SALES AGENT PROTECTIVE SERVICE Ot J44.9 CHRONIC OBSTRUCTIVE PULMONARY DISEASE, U 08/06/2018 LISSA OATES APRN Ot R06.02 SHORTNESS OF BREATH 08/06/2018 LISSA OATES APRN Ot Z72.0 TOBACCO USE 08/06/2018 LISSA OATES SALES AGENT PROTECTIVE SERVICE Ot Z85.118 PERSONAL HISTORY OF MALIGNANT NEOPLASM O 08/06/2018 ESTEVAN FERRO, CHAPO J Ot 162.9 MAL LAURA BRONCH/LUNG NOS 08/06/2018 VISHNU STARKS 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 Ot 162.3 MAL LAURA UPPER LOBE LUNG 08/06/2018 VISHNU STARKS 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 Ot 250.00 DIAB CHETNA WO COMPL, TYPE II OR UNSPEC TY 08/06/2018 VISHNU STARKS 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 Ot 272.4 HYPERLIPIDEMIA NEC/NOS 08/06/2018 VISHNU STARKS 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 Ot 414.00 CORON ATHEROSCLER NOS TYPE VESSEL, NATIV 08/06/2018 VISHNU STARKS 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 Ot 793.0 NOSP (ABN) FINDINGS ON RADIOLOGICAL OT 08/06/2018 VISHNU STARKS 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 Ot V45.82 PERCUTANEOUS TRANSLUM CORON ANGIOPLASTY 08/06/2018 VISHNU STARKS 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 Ot V58.69 OT MED,LT,CURRENT USE 08/06/2018 JAMMIE NAVA MD Ot C34. 10 MALIGNANT NEOPLASM OF UPPER LOBE, UNSP B 08/06/2018 JAMMIE NAVA MD Ot E11. 9 TYPE 2 DIABETES MELLITUS WITHOUT COMPLIC 08/06/2018 JAMMIE NAVA MD, Ot E78. 5 HYPERLIPIDEMIA, UNSPECIFIED 08/06/2018 JAMMIE NAVA MD Ot I25. 10 ATHSCL HEART DISEASE OF [place] CORONARY 08/06/2018 JAMMIE NAVA MD Ot Z51. 11 ENCOUNTER FOR ANTINEOPLASTIC CHEMOTHERAP 08/06/2018 JAMMIE NAVA MD Ot Z79.899 OTHER ALF (CURRENT) DRUG THERAPY 08/06/2018 JAMMIE NAVA MD [...] CCDS Ot I25.10 ATHSCL HEART DISEASE OF [place] CORONARY 08/06/2018 AKANKSHA FERRO FACC, DELBERT FACP CCDS Ot R00.2 PALPITATIONS 08/06/2018 AKANKSHA FERRO FACC, DELBERT FACP CCDS Ot R06.02 SHORTNESS OF BREATH 08/06/2018 AKANKSHA FERRO FACC, ALI FACP CCDS Ot Z87.891 PERSONAL HISTORY OF NICOTINE DEPENDENCE 08/06/2018 LISSA OATES SALES AGENT PROTECTIVE SERVICE Ot G47.30 SLEEP APNEA, UNSPECIFIED 08/06/2018 LISSA OATES SALES AGENT PROTECTIVE SERVICE Ot J44.9 CHRONIC OBSTRUCTIVE PULMONARY DISEASE, U 08/06/2018 LISSA OATES SALES AGENT PROTECTIVE SERVICE Ot R06.02 SHORTNESS OF BREATH 08/06/2018 LISSA OATES SALES AGENT PROTECTIVE SERVICE Ot Z72.0 TOBACCO USE 08/06/2018 LISSA OATES SALES AGENT PROTECTIVE SERVICE Ot Z85.118 PERSONAL HISTORY OF MALIGNANT NEOPLASM O 08/06/2018 LISSA OATES SALES AGENT PROTECTIVE SERVICE Ot C34.90 MALIGNANT NEOPLASM OF UNSP PART OF UNSP 08/06/2018 LISSA OATES APRN Ot G47.30 SLEEP APNEA, UNSPECIFIED 08/06/2018 LISSA OATES SALES AGENT PROTECTIVE SERVICE Ot J43.9 EMPHYSEMA, UNSPECIFIED 08/06/2018 LISSA OATES SALES AGENT PROTECTIVE SERVICE Ot K76.0 FATTY (CHANGE OF) LIVER, NOT ELSEWHERE C 08/06/2018 LISSA OATES SALES AGENT PROTECTIVE SERVICE Ot Z72.0 TOBACCO USE 08/06/2018 AKANKSHA FERRO FACC, DELBERT FACP CCDS Ot E11.9 TYPE 2 DIABETES MELLITUS WITHOUT COMPLIC 08/06/2018 AKANKSHA FERRO FACC, ALI FACP CCDS Ot G47.33 OBSTRUCTIVE SLEEP APNEA (ADULT) (PEDIATR 08/06/2018 AKANKSHA FERRO FACC, ALI FACP CCDS Ot I25.10 ATHSCL HEART DISEASE OF [place] CORONARY 08/06/2018 AKNAKSHA FERRO FACC, ALI FACP CCDS Ot K21.9 GASTRO-ESOPHAGEAL REFLUX DISEASE WITHOUT 08/06/2018 AKANKSHA FERRO FACC, ALI FACP CCDS Ot R00.2 PALPITATIONS 08/06/2018 AKANKSHA FERRO FACC, ALI FACP CCDS Ot Z79.82 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 08/06/2018 AKANKSHA FERRO FACC, ALI FACP CCDS Ot Z79.84 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 ORAL HYPOGLYC 08/06/2018 AKANKSHA FERRO FACC, ALI FACP CCDS Ot Z79.899 OTHER ALF (CURRENT) DRUG THERAPY 08/06/2018 AKANKSHA FERRO FACC, DELBERT FACP CCDS Ot Z82.49 FAMILY HX OF ISCHEM HEART DIS AND OTH DI 08/06/2018 AKANKSHA FERRO FACC, DELBERT GO[facility] CCDS Ot Z85.118 PERSONAL HISTORY OF MALIGNANT NEOPLASM O 08/06/2018 AKANKSHA FERRO FACC, DELBERT [facility] CCDS Ot Z86.73 PRSNL HX OF TIA (TIA), AND CEREB INFRC W 08/06/2018 AKANKSHA FERRO FACC, DELBERT [facility] CCDS Ot Z87.891 PERSONAL HISTORY OF NICOTINE DEPENDENCE 08/06/2018 AKANKSHA FERRO FACC, DELBERT [facility] CCDS Ot Z95.5 PRESENCE OF CORONARY ANGIOPLASTY IMPLANT 08/06/2018 PAMELA RAMSEY 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 Ot K59. 09 OTHER CONSTIPATION 08/06/2018 PAMELA RAMSEY 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 Ot M43.8X6 OTHER SPECIFIED DEFORMING DORSOPATHIES, 08/06/2018 PAMELA RAMSEY 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 Ot M47.816 SPONDYLOSIS W/O MYELOPATHY OR RADICULOPA 08/14/2018 PAMELA RAMSEY 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 Ot M47.816 SPONDYLOSIS W/O MYELOPATHY OR RADICULOPA 08/14/2018 PAMELA RAMSEY 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 Ot M48. 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 5 LOW BACK PAIN 01/08/2019 [...] CCDS Ot I25.10 ATHSCL HEART DISEASE OF [place] CORONARY 01/08/2019 AKANKSHA FERRO FACC, DELBERT FACP CCDS Ot J30.1 ALLERGIC RHINITIS DUE TO POLLEN 01/08/2019 AKANKSHA FERRO FACC, DELBERT FACP CCDS Ot J44.9 CHRONIC OBSTRUCTIVE PULMONARY DISEASE, U 01/08/2019 AKANKSHA FERRO FACC, DELBERT FACP CCDS Ot K21.9 GASTRO-ESOPHAGEAL REFLUX DISEASE WITHOUT 01/08/2019 AKANKSHA FERRO FACC, DELBERT FACP CCDS Ot R06.09 OTHER FORMS OF DYSPNEA 01/08/2019 AKANKSHA FERRO FACC, DELBERT FACP CCDS Ot Z79.82 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 01/08/2019 AKANKSHA FERRO FACC, DELBERT FACP CCDS Ot Z79.84 ALF (CURRENT) USE OF ORAL HYPOGLYC 01/08/2019 AKANKSHA [...] CCDS Ot I25.10 ATHSCL HEART DISEASE OF [place] CORONARY 01/14/2019 AKANKSHA FERRO FACC, ALI FACP [...] FERRO FACC, ALI FACP CCDS Ot Z79.82 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 01/14/2019 AKANKSHA FERRO FACC, ALI FACP CCDS Ot Z79.84 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 ORAL HYPOGLYC 01/14/2019 AKANKSHA [...] MAL LAURA BRONCH/LUNG NOS 02/21/2019 VISHNU STARKS 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 Ot 162.3 MAL LAURA UPPER LOBE LUNG 02/21/2019 VISHNU STARKS 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 Ot 250.00 DIAB CHETNA WO COMPL, TYPE II OR UNSPEC TY 02/21/2019 VISHNU STARKS 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 Ot 272.4 HYPERLIPIDEMIA NEC/NOS 02/21/2019 VISHNU STARKS 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 Ot 414.00 CORON ATHEROSCLER NOS TYPE VESSEL, NATIV 02/21/2019 VISHNU STARKS 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 Ot 793.0 NOSP (ABN) FINDINGS ON RADIOLOGICAL OT 02/21/2019 VISHNU STARKS 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 Ot V45.82 PERCUTANEOUS TRANSLUM CORON ANGIOPLASTY 02/21/2019 VISHNU STARKS 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 Ot V58.69 OTH MED,LT,CURRENT USE 02/21/2019 JAMMIE NAVA MD Ot C34. 10 MALIGNANT NEOPLASM OF UPPER LOBE, UNSP B 02/21/2019 JAMMIE NAVA MD Ot E11. 9 TYPE 2 DIABETES MELLITUS WITHOUT COMPLIC 02/21/2019 JAMMIE NAVA MD Ot E78. 5 HYPERLIPIDEMIA, UNSPECIFIED 02/21/2019 JAMMIE NAVA MD Ot I25. 10 ATHSCL HEART DISEASE OF [place] CORONARY 02/21/2019 JAMMIE NAVA MD Ot Z51. 11 ENCOUNTER FOR ANTINEOPLASTIC CHEMOTHERAP 02/21/2019 JAMMIE NAVA MD Ot Z79.899 OTHER ALF (CURRENT) DRUG THERAPY 02/21/2019 JAMMIE NAVA MD [...] CCDS Ot I25.10 ATHSCL HEART DISEASE OF [place] CORONARY 02/21/2019 AKANKSHA FERRO FACC, ALI FACP CCDS Ot R00.2 PALPITATIONS 02/21/2019 AKANKSHA FERRO FACC, ALI FACP CCDS Ot R06.02 SHORTNESS OF BREATH 02/21/2019 AKANKSHA FERRO FACC, ALI FACP CCDS Ot Z87.891 PERSONAL HISTORY OF NICOTINE DEPENDENCE 02/21/2019 LISSA OATES APRN Ot G47.30 SLEEP APNEA, UNSPECIFIED 02/21/2019 LISSA OATES APRN Ot J44.9 CHRONIC OBSTRUCTIVE PULMONARY DISEASE, U 02/21/2019 LASHON, LISSA E SALES AGENT PROTECTIVE SERVICE Ot R06.02 SHORTNESS OF BREATH 02/21/2019 LISSA OATES SALES AGENT PROTECTIVE SERVICE Ot Z72.0 TOBACCO USE 02/21/2019 LISSA OATES SALES AGENT PROTECTIVE SERVICE Ot Z85.118 PERSONAL HISTORY OF MALIGNANT NEOPLASM O 02/21/2019 LISSA OATES SALES AGENT PROTECTIVE SERVICE Ot C34.90 MALIGNANT NEOPLASM OF UNSP PART OF UNSP 02/21/2019 LISSA OATES SALES AGENT PROTECTIVE SERVICE Ot G47.30 SLEEP APNEA, UNSPECIFIED 02/21/2019 LISSA OATES SALES AGENT PROTECTIVE SERVICE Ot J43.9 EMPHYSEMA, UNSPECIFIED 02/21/2019 LISSA OATES SALES AGENT PROTECTIVE SERVICE Ot K76.0 FATTY (CHANGE OF) LIVER, NOT ELSEWHERE C 02/21/2019 LISSA OATES SALES AGENT PROTECTIVE SERVICE Ot Z72.0 TOBACCO USE 02/21/2019 AKANKSHA FERRO FACC, DELBERT FACP CCDS Ot E11.9 TYPE 2 DIABETES MELLITUS WITHOUT COMPLIC 02/21/2019 AKANKSHA FERRO FACC, DELBERT FACP CCDS Ot G47.33 OBSTRUCTIVE SLEEP APNEA (ADULT) (PEDIATR 02/21/2019 AKANKSHA FERRO FACC, ALI FACP CCDS Ot I25.10 ATHSCL HEART DISEASE OF [place] CORONARY 02/21/2019 AKANKSHA FERRO FACC, DELBERT FACP CCDS Ot K21.9 GASTRO-ESOPHAGEAL REFLUX DISEASE WITHOUT 02/21/2019 AKANKSHA FERRO FACC, DELBERT FACP CCDS Ot R00.2 PALPITATIONS 02/21/2019 AKANKSHA FERRO FACC, DELBERT FACP CCDS Ot Z79.82 ALF (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 02/21/2019 AKANKSHA FERRO FACC, DELBERT FACP CCDS Ot Z79.84 ALF (CURRENT) USE OF ORAL HYPOGLYC 02/21/2019 AKANKSHA FERRO FACC, DELBERT FACP CCDS Ot Z79.899 OTHER ALF (CURRENT) DRUG THERAPY 02/21/2019 AKANKSHA FERRO FACC, DELBERT FACP CCDS Ot Z82.49 FAMILY HX OF ISCHEM HEART DIS AND OTH DI 02/21/2019 AKANKSHA FERRO FACC ALI FACP CCDS Ot Z85.118 PERSONAL HISTORY OF MALIGNANT NEOPLASM O 02/21/2019 AKANKSHA FERRO FACC, DELBERT FACP CCDS Ot Z86.73 PRSNL HX OF TIA (TIA), AND CEREB INFRC W 02/21/2019 AKANKSHA CHAMBERSC, [facility] CCDS Ot Z87.891 PERSONAL HISTORY OF NICOTINE DEPENDENCE 02/21/2019 AKANKSHA FERRO [facility], ALI [facility] CCDS Ot Z95.5 PRESENCE OF CORONARY ANGIOPLASTY IMPLANT 02/21/2019 BRAULIO PAMELA 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 Ot K59. 09 OTHER CONSTIPATION 02/21/2019 BRAULIO PAMELA 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 Ot M43.8X6 OTHER SPECIFIED DEFORMING DORSOPATHIES, 02/21/2019 BRAULIOKAYLIET 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 Ot M47.816 SPONDYLOSIS W/O MYELOPATHY OR RADICULOPA 02/21/2019 BRAULIO PAMELA 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 Ot M47.816 SPONDYLOSIS W/O MYELOPATHY OR RADICULOPA 02/21/2019 BRAULIOKAYLIET 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 Ot M48. 07 SPINAL STENOSIS, LUMBOSACRAL REGION 02/21/2019 BRAULIOKAYLIET 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 Ot 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, 03/06/2019 AKANKSHA FERRO [facility], [facility] CCDS Ot Z95.828 PRESENCE OF OTHER VASCULAR IMPLANTS AND 04/30/2019 ESTEVAN FERRO, [place] J Ot 162.9 MAL LAURA BRONCH/LUNG NOS 04/30/2019 VISHNU STARKS 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 Ot 162.3 MAL LAURA UPPER LOBE LUNG 04/30/2019 VISHNU STARKS S 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 Ot 250.00 DIAB CHETNA WO COMPL, TYPE II OR UNSPEC TY 04/30/2019 VISHNU STARKS S 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 Ot 272.4 HYPERLIPIDEMIA NEC/NOS 04/30/2019 VISHNU STARKS S 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 Ot 414.00 CORON ATHEROSCLER NOS TYPE VESSEL, NATIV 04/30/2019 VISHNU STARKS S 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 Ot 793.0 NOSP (ABN) FINDINGS ON RADIOLOGICAL OT 04/30/2019 VISHNU STARKS S 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 Ot V45.82 PERCUTANEOUS TRANSLUM CORON ANGIOPLASTY 04/30/2019 VISHNU STARKS S 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 Ot V58.69 OTH MED,LT,CURRENT USE 04/30/2019 BRANDY FERRO, JAMMIE Ot C34. 10 MALIGNANT NEOPLASM OF UPPER LOBE, UNSP B 04/30/2019 BRANDY FERRO, JAMMIE Ot E11. 9 TYPE 2 DIABETES MELLITUS WITHOUT COMPLIC 04/30/2019 JAMMIE NAVA MD Ot E78. 5 HYPERLIPIDEMIA, UNSPECIFIED 04/30/2019 XUN MD, CHAU-RJ Ot I25. 10 ATHSCL HEART DISEASE OF [place] CORONARY 04/30/2019 JAMMIE NAVA MD Ot Z51. 11 ENCOUNTER FOR ANTINEOPLASTIC CHEMOTHERAP 04/30/2019 JAMMIE NAVA MD Ot Z79.899 OTHER ALF (CURRENT) DRUG THERAPY 04/30/2019 JAMMIE NAVA MD Ot Z98. 61 CORONARY ANGIOPLASTY STATUS 04/30/2019 AKANKSHA FERRO FAC, ALI FACP CCDS Ot C34.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, LEFT B 04/30/2019 AKANKSHA FERRO FAC, ALI FACP CCDS Ot E13.9 OTHER SPECIFIED DIABETES MELLITUS WITHOU 04/30/2019 AKANKSHA FERRO FACC, ALI FACP CCDS Ot E78.4 OTHER HYPERLIPIDEMIA 04/30/2019 AKANKSHA FERRO [facility], ALI FACP CCDS Ot I25.10 ATHSCL HEART DISEASE OF [place] CORONARY 04/30/2019 AKANKSHA FERRO FAC, ALI FACP CCDS Ot R00.2 PALPITATIONS 04/30/2019 AKANKSHA FERRO [facility], ALI FACP CCDS Ot R06.02 SHORTNESS OF BREATH 04/30/2019 AKANKSHA FERRO [facility], ALI FACP CCDS Ot Z87.891 PERSONAL HISTORY OF NICOTINE DEPENDENCE 04/30/2019 LISSA OATES SALES AGENT PROTECTIVE SERVICE Ot G47.30 SLEEP APNEA, UNSPECIFIED 04/30/2019 LISSA OATES SALES AGENT PROTECTIVE SERVICE Ot J44.9 CHRONIC OBSTRUCTIVE PULMONARY DISEASE, U 04/30/2019 LISSA OATES SALES AGENT PROTECTIVE SERVICE Ot R06.02 SHORTNESS OF BREATH 04/30/2019 LISSA OATES SALES AGENT PROTECTIVE SERVICE Ot Z72.0 TOBACCO USE 04/30/2019 LISSA OATES SALES AGENT PROTECTIVE SERVICE Ot Z85.118 PERSONAL HISTORY OF MALIGNANT NEOPLASM O 04/30/2019 LISSA OATES SALES AGENT PROTECTIVE SERVICE Ot C34.90 MALIGNANT NEOPLASM OF UNSP PART OF UNSP 04/30/2019 LISSA OATES SALES AGENT PROTECTIVE SERVICE Ot G47.30 SLEEP APNEA, UNSPECIFIED 04/30/2019 LISSA OATES SALES AGENT PROTECTIVE SERVICE Ot J43.9 EMPHYSEMA, UNSPECIFIED 04/30/2019 LISSA OATES SALES AGENT PROTECTIVE SERVICE Ot K76.0 FATTY (CHANGE OF) LIVER, NOT ELSEWHERE C 04/30/2019 LISSA OATES SALES AGENT PROTECTIVE SERVICE Ot Z72.0 TOBACCO USE 04/30/2019 AKANKSHA CHAMBERS, DELBERT FACP CCDS Ot E11.9 TYPE 2 DIABETES MELLITUS WITHOUT COMPLIC 04/30/2019 AKANKSHA FERRO FACC, ALI FACP CCDS Ot G47.33 OBSTRUCTIVE SLEEP APNEA (ADULT) (PEDIATR 04/30/2019 AKANKHSA FERRO [facility], ALI FACP CCDS Ot I25.10 ATHSCL HEART DISEASE OF [place] CORONARY 04/30/2019 AKANKSHA FERRO FACC, DELBERT FACP CCDS Ot K21.9 GASTRO-ESOPHAGEAL REFLUX DISEASE WITHOUT 04/30/2019 AKANKSHA FERRO [facility], ALI FACP CCDS Ot R00.2 PALPITATIONS 04/30/2019 AKANKSHA FERRO [facility], ALI FACP CCDS Ot Z79.82 ALF (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 04/30/2019 AKANKSHA CHAMBERS, DELBERT FACP CCDS Ot Z79.84 ALF (CURRENT) USE OF ORAL HYPOGLYC 04/30/2019 AKANKSHA CHAMBERS, ALI FACP CCDS Ot Z79.899 OTHER MACHINE HEEL BUILDER (CURRENT) DRUG THERAPY 04/30/2019 AKANKSHA CHAMBERS, DELBERT FACP CCDS Ot Z82.49 FAMILY HX OF ISCHEM HEART DIS AND OTH DI 04/30/2019 AKANKSHA FERRO [facility], ALI FACP CCDS Ot Z85.118 PERSONAL HISTORY OF MALIGNANT NEOPLASM O 04/30/2019 AKANKSHA CHAMBERS, ALI FACP CCDS Ot Z86.73 PRSNL HX OF TIA (TIA), AND CEREB INFRC W 04/30/2019 AKANKSHA FERRO [facility], ALI FACP CCDS Ot Z87.891 PERSONAL HISTORY [...] SPINAL STENOSIS, LUMBOSACRAL REGION 04/30/2019 PAMELA RAMSEY 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 Ot 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, 04/30/2019 AKANKSHA FERRO [facility], [facility] CCDS Ot Z95.828 PRESENCE OF OTHER VASCULAR IMPLANTS AND 04/30/2019 AKANKSHA FERRO [facility], [facility] CCDS Ot Z95.828 PRESENCE OF OTHER VASCULAR IMPLANTS AND 05/01/2019 LISSA OATES APRN Ot G47.30 SLEEP APNEA, UNSPECIFIED 05/01/2019 LISSA OATES APRN Ot J44.9 CHRONIC OBSTRUCTIVE PULMONARY DISEASE, U 05/01/2019 LISSA OATES SALES AGENT PROTECTIVE SERVICE Ot R59.0 LOCALIZED ENLARGED LYMPH NODES 05/01/2019 LISSA OATES SALES AGENT PROTECTIVE SERVICE Ot Z72.0 TOBACCO USE 05/01/2019 LISSA OATES SALES AGENT PROTECTIVE SERVICE Ot Z85.118 PERSONAL HISTORY OF MALIGNANT NEOPLASM O 05/07/2019 AKANKSHA FERRO [facility], [facility] CCDS Ot Z95.828 PRESENCE OF OTHER VASCULAR IMPLANTS AND 06/02/2019 ESTEVAN FERRO, CHAPO J Ot 162.9 MAL LAURA BRONCH/LUNG NOS 06/02/2019 TEREZA HILLOUISE S 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 Ot 162.3 MAL LAURA UPPER LOBE LUNG 06/02/2019 TEREZA HILAH S 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 Ot 250.00 DIAB CHETNA WO COMPL, TYPE II OR UNSPEC TY 06/02/2019 TEERZA HILAH S 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 Ot 272.4 HYPERLIPIDEMIA NEC/NOS 06/02/2019 TEREZA HILAH S 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 Ot 414.00 CORON ATHEROSCLER NOS TYPE VESSEL, NATIV 06/02/2019 TEREZA HILAH S 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 Ot 793.0 NOSP (ABN) FINDINGS ON RADIOLOGICAL OT 06/02/2019 VISHNU STARKS S 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 Ot V45.82 PERCUTANEOUS TRANSLUM CORON ANGIOPLASTY 06/02/2019 VISHNU STARKS S 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 Ot V58.69 OTH MED,LT,CURRENT USE 06/02/2019 JAMMIE NAVA MD Ot C34. 10 MALIGNANT NEOPLASM OF UPPER LOBE, UNSP B 06/02/2019 JAMMIE NAVA MD Ot E11. 9 TYPE 2 DIABETES MELLITUS WITHOUT COMPLIC 06/02/2019 JAMMIE NAVA MD Ot E78. 5 HYPERLIPIDEMIA, UNSPECIFIED 06/02/2019 JAMMIE NAVA MD Ot I25. 10 ATHSCL HEART DISEASE OF [place] CORONARY 06/02/2019 JAMMIE NAVA MD Ot Z51. 11 ENCOUNTER FOR ANTINEOPLASTIC CHEMOTHERAP 06/02/2019 JAMMIE NAVA MD Ot Z79.899 OTHER ALF (CURRENT) DRUG THERAPY 06/02/2019 JAMMIE NAVA MD [...] CCDS Ot I25.10 ATHSCL HEART DISEASE OF [place] CORONARY 06/02/2019 AKANKSHA FERRO FAC, ALI FACP CCDS Ot R00.2 PALPITATIONS 06/02/2019 AKANKSHA FERRO FAC, ALI FACP CCDS Ot R06.02 SHORTNESS OF BREATH 06/02/2019 AKANKSHA FERRO FAC, ALI FACP CCDS Ot Z87.891 PERSONAL HISTORY OF NICOTINE DEPENDENCE 06/02/2019 LISSA OATES SALES AGENT PROTECTIVE SERVICE Ot G47.30 SLEEP APNEA, UNSPECIFIED 06/02/2019 LISSA OATES SALES AGENT PROTECTIVE SERVICE Ot J44.9 CHRONIC OBSTRUCTIVE PULMONARY DISEASE, U 06/02/2019 LISSA OATES SALES AGENT PROTECTIVE SERVICE Ot R06.02 SHORTNESS OF BREATH 06/02/2019 LISSA OATES SALES AGENT PROTECTIVE SERVICE Ot Z72.0 TOBACCO USE 06/02/2019 LISSA OATES SALES AGENT PROTECTIVE SERVICE Ot Z85.118 PERSONAL HISTORY OF MALIGNANT NEOPLASM O 06/02/2019 LISSA OATES SALES AGENT PROTECTIVE SERVICE Ot C34.90 MALIGNANT NEOPLASM OF UNSP PART OF UNSP 06/02/2019 LISSA OATES SALES AGENT PROTECTIVE SERVICE Ot G47.30 SLEEP APNEA, UNSPECIFIED 06/02/2019 LISSA OATES SALES AGENT PROTECTIVE SERVICE Ot J43.9 EMPHYSEMA, UNSPECIFIED 06/02/2019 LISSA OATES SALES AGENT PROTECTIVE SERVICE Ot K76.0 FATTY (CHANGE OF) LIVER, NOT ELSEWHERE C 06/02/2019 LISSA OATES SALES AGENT PROTECTIVE SERVICE Ot Z72.0 TOBACCO USE 06/02/2019 AKANKSHA FERRO FACC, DELBERT FACP CCDS Ot E11.9 TYPE 2 DIABETES MELLITUS WITHOUT COMPLIC 06/02/2019 AKANKSHA FERRO FACC, ALI FACP CCDS Ot G47.33 OBSTRUCTIVE SLEEP APNEA (ADULT) (PEDIATR 06/02/2019 AKANKSHA FERRO FACC, ALI FACP CCDS Ot I25.10 ATHSCL HEART DISEASE OF [place] CORONARY 06/02/2019 AKANKSHA FERRO FACC, ALI FACP CCDS Ot K21.9 GASTRO-ESOPHAGEAL REFLUX DISEASE WITHOUT 06/02/2019 AKANKSHA FERRO FACC, ALI FACP CCDS Ot R00.2 PALPITATIONS 06/02/2019 AKANKSHA FERRO FACC, ALI FACP CCDS Ot Z79.82 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 06/02/2019 AKANKSHA FERRO FACC, ALI FACP CCDS Ot Z79.84 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 ORAL HYPOGLYC 06/02/2019 AKANKSHA FERRO FACC, ALI FACP CCDS Ot Z79.899 OTHER ALF (CURRENT) DRUG THERAPY 06/02/2019 AKANKSHA FERRO FACC, [...] OF MALIGNANT NEOPLASM O 06/11/2019 AKANKSHA FERRO [facility], ALI FACP CCDS Ot E11.9 TYPE 2 DIABETES MELLITUS WITHOUT COMPLIC 06/11/2019 AKANKSHA FERRO [facility], ALI FACP CCDS Ot I25.10 ATHSCL HEART DISEASE OF [place] CORONARY 06/11/2019 AKANKSHA FERRO [facility], ALI FACP CCDS Ot I34.0 NONRHEUMATIC MITRAL (VALVE) INSUFFICIENC 06/11/2019 AKANKSHA FERRO [facility], ALI FACP CCDS Ot I77.89 OTHER SPECIFIED DISORDERS OF ARTERIES AN 06/11/2019 AKANKSHA FERRO [facility], ALI FACP CCDS Ot Z86.73 PRSNL HX OF TIA (TIA), AND CEREB INFRC W 06/11/2019 AKANKSHA FERRO [facility], ALI FACP CCDS Ot Z87.891 PERSONAL HISTORY OF NICOTINE DEPENDENCE 06/16/2019 AKANKSHA FERRO [facility], ALI FACP CCDS Ot E11.9 TYPE 2 DIABETES MELLITUS WITHOUT COMPLIC 06/16/2019 AKANKSHA FERRO [facility], ALI FACP CCDS Ot I25.10 ATHSCL HEART DISEASE OF [place] CORONARY 06/16/2019 AKANKSHA FERRO [facility], ALI FACP CCDS Ot I34.0 NONRHEUMATIC MITRAL (VALVE) INSUFFICIENC 06/16/2019 AKAKNSHA FERRO [facility], ALI FACP CCDS Ot I77.89 OTHER SPECIFIED DISORDERS OF ARTERIES AN 06/16/2019 AKANKSHA FERRO [facility], ALI FACP CCDS Ot Z86.73 PRSNL HX OF TIA (TIA), AND CEREB INFRC W 06/16/2019 AKANKSHA FERRO [facility], ALI FACP CCDS Ot Z87.891 PERSONAL HISTORY OF NICOTINE DEPENDENCE 07/02/2019 LISSA OATES APRN Ot G47.30 SLEEP APNEA, UNSPECIFIED 07/02/2019 LISSA OATES SALES AGENT PROTECTIVE SERVICE Ot J44.9 CHRONIC OBSTRUCTIVE PULMONARY DISEASE, U 07/02/2019 LISSA OATES SALES AGENT PROTECTIVE SERVICE Ot R59.0 LOCALIZED ENLARGED LYMPH NODES 07/02/2019 LISSA OATES SALES AGENT PROTECTIVE SERVICE Ot Z72.0 TOBACCO USE 07/02/2019 LISSA OATES SALES AGENT PROTECTIVE SERVICE Ot Z85.118 PERSONAL HISTORY OF MALIGNANT NEOPLASM O 10/08/2019 CHAPO BARRETO MD Ot C34.30 MALIGNANT NEOPLASM OF LOWER LOBE, [facility] 10/08/2019 CHAPO BARRETO MD Ot J43.2 CENTRILOBULAR EMPHYSEMA 10/08/2019 CHAPO BARRETO MD, Ot K86.9 DISEASE OF PANCREAS, UNSPECIFIED 11/04/2019 CHAPO BARRETO MD Ot C34.30 MALIGNANT NEOPLASM OF LOWER LOBE, [facility] 11/04/2019 CHAPO BARRETO MD, Ot J43.2 CENTRILOBULAR EMPHYSEMA 11/04/2019 CHAPO BARRETO MD Ot K86.9 DISEASE OF PANCREAS, UNSPECIFIED 11/11/2019 CHAPO BARRETO MD Ot C34.30 MALIGNANT NEOPLASM OF LOWER LOBE, [facility] 11/11/2019 CHAPO BARRETO MD Ot J43.2 CENTRILOBULAR EMPHYSEMA 11/11/2019 CHAPO BARRETO MD Ot K86.9 DISEASE OF PANCREAS, UNSPECIFIED 11/11/2019 CHAPO BARRETO MD Ot 162.9 MAL LAURA BRONCH/LUNG NOS 11/11/2019 VISHNU STARKS 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 Ot 162.3 MAL LAURA UPPER LOBE LUNG 11/11/2019 VISHNU STARKS 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 Ot 250.00 DIAB CHETNA WO COMPL, TYPE II OR UNSPEC TY 11/11/2019 VISHNU STARKS 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 Ot 272.4 HYPERLIPIDEMIA NEC/NOS 11/11/2019 VISHNU STARKS 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 Ot 414.00 CORON ATHEROSCLER NOS TYPE VESSEL, NATIV 11/11/2019 VISHNU STARKS 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 Ot 793.0 NOSP (ABN) FINDINGS ON RADIOLOGICAL OT 11/11/2019 VISHNU STARKS 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 Ot V45.82 PERCUTANEOUS TRANSLUM CORON ANGIOPLASTY 11/11/2019 VISHNU STARKS 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 Ot V58.69 OT MED,LT,CURRENT USE 11/11/2019 JAMMIE NAVA MD Ot C34. 10 MALIGNANT NEOPLASM OF UPPER LOBE, UNSP B 11/11/2019 JAMMIE NAVA MD Ot E11. 9 TYPE 2 DIABETES MELLITUS WITHOUT COMPLIC 11/11/2019 JAMMIE NAVA MD Ot E78. 5 HYPERLIPIDEMIA, UNSPECIFIED 11/11/2019 JAMMIE NAVA MD Ot I25. 10 ATHSCL HEART DISEASE OF [place] CORONARY 11/11/2019 JAMMIE NAVA MD Ot Z51. 11 ENCOUNTER FOR ANTINEOPLASTIC CHEMOTHERAP 11/11/2019 JAMMIE NAVA MD Ot Z79.899 OTHER ALF (CURRENT) DRUG THERAPY 11/11/2019 JAMMIE NAVA MD Ot Z98. 61 CORONARY ANGIOPLASTY STATUS 11/11/2019 AKANKSHA CHAMBERSC, ALI FACP CCDS Ot C34.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, LEFT B 11/11/2019 AKANKSHA FERRO FACC, ALI FACP CCDS Ot E13.9 OTHER SPECIFIED DIABETES MELLITUS WITHOU 11/11/2019 AKANKSHA FERRO FACC, ALI FACP CCDS Ot E78.4 OTHER HYPERLIPIDEMIA 11/11/2019 AKANKSHA FERRO FACC, ALI FACP CCDS Ot I25.10 ATHSCL HEART DISEASE OF [place] CORONARY 11/11/2019 AKANKSHA FERRO FACC, ALI FACP CCDS Ot R00.2 PALPITATIONS 11/11/2019 AKANKSHA FERRO FACC, ALI FACP CCDS Ot R06.02 SHORTNESS OF BREATH 11/11/2019 AKANKSHA FERRO FACC, ALI FACP CCDS Ot Z87.891 PERSONAL HISTORY OF NICOTINE DEPENDENCE 11/11/2019 LISSA OATES SALES AGENT PROTECTIVE SERVICE Ot G47.30 SLEEP APNEA, UNSPECIFIED 11/11/2019 LISSA OATES SALES AGENT PROTECTIVE SERVICE Ot J44.9 CHRONIC OBSTRUCTIVE PULMONARY DISEASE, U 11/11/2019 LISSA OATES SALES AGENT PROTECTIVE SERVICE Ot R06.02 SHORTNESS OF BREATH 11/11/2019 LISSA OATES SALES AGENT PROTECTIVE SERVICE Ot Z72.0 TOBACCO USE 11/11/2019 LISSA OATES SALES AGENT PROTECTIVE SERVICE Ot Z85.118 PERSONAL HISTORY OF MALIGNANT NEOPLASM O 11/11/2019 LISSA OATES SALES AGENT PROTECTIVE SERVICE Ot C34.90 MALIGNANT NEOPLASM OF UNSP PART OF UNSP 11/11/2019 LISSA OATES SALES AGENT PROTECTIVE SERVICE Ot G47.30 SLEEP APNEA, UNSPECIFIED 11/11/2019 LISSA OATES APRN Ot J43.9 EMPHYSEMA, UNSPECIFIED 11/11/2019 LISSA OATES APRN Ot K76.0 FATTY (CHANGE OF) LIVER, NOT ELSEWHERE C 11/11/2019 LISSA OATES APRN Ot Z72.0 TOBACCO USE 11/11/2019 AKANKSHA FERRO [facility], ALI FACP CCDS Ot E11.9 TYPE 2 DIABETES MELLITUS WITHOUT COMPLIC 11/11/2019 AKANKSHA FERRO [facility], ALI FACP CCDS Ot G47.33 OBSTRUCTIVE SLEEP APNEA (ADULT) (PEDIATR 11/11/2019 AKANKSHA FERRO [facility], ALI FACP CCDS Ot I25.10 ATHSCL HEART DISEASE OF [place] CORONARY 11/11/2019 AKANKSHA FERRO [facility], ALI FACP CCDS Ot K21.9 GASTRO-ESOPHAGEAL REFLUX DISEASE WITHOUT 11/11/2019 AKANKSHA CHAMBERS, ALI FACP CCDS Ot R00.2 PALPITATIONS 11/11/2019 AKANKSHA CHAMBERS, ALI FACP CCDS Ot Z79.82 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 11/11/2019 AKANKSHA CHAMBERS, ALI FACP CCDS Ot Z79.84 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 ORAL HYPOGLYC 11/11/2019 AKANKSHA FERRO [facility], ALI FACP CCDS Ot Z79.899 OTHER ALF (CURRENT) DRUG THERAPY 11/11/2019 AKANKSHA FERRO [facility], ALI FACP CCDS Ot Z82.49 FAMILY HX OF ISCHEM HEART DIS AND OTH DI 11/11/2019 AKANKSHA CHAMBERS, ALI FACP CCDS Ot Z85.118 PERSONAL HISTORY OF MALIGNANT NEOPLASM O 11/11/2019 AKANKSHA CHAMBERS, ALI FACP CCDS Ot Z86.73 PRSNL HX OF TIA (TIA), AND CEREB INFRC W 11/11/2019 AKANKSHA FERRO [facility], ALI FACP CCDS Ot Z87.891 PERSONAL HISTORY OF NICOTINE DEPENDENCE 11/11/2019 AKANKSHA CHAMBERS, ALI FACP CCDS Ot Z95.5 PRESENCE OF CORONARY ANGIOPLASTY IMPLANT 11/11/2019 PAMELA RAMSEY Ot K59. 09 OTHER CONSTIPATION 11/11/2019 PAMELA RAMSEYP Ot M43.8X6 OTHER SPECIFIED DEFORMING DORSOPATHIES, 11/11/2019 PAMELA RAMSEY 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 Ot M47.816 SPONDYLOSIS W/O MYELOPATHY OR RADICULOPA 11/11/2019 PAMELA RAMSEY 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 Ot M47.816 SPONDYLOSIS W/O MYELOPATHY OR RADICULOPA 11/11/2019 KAYLIE RAMSEYT 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 Ot M48. 07 SPINAL STENOSIS, LUMBOSACRAL REGION 11/11/2019 KAYLIE RAMSEYT 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 Ot 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, 11/11/2019 LISSA OATES SALES AGENT PROTECTIVE SERVICE Ot G47.30 SLEEP APNEA, UNSPECIFIED 11/11/2019 LISSA OATES SALES AGENT PROTECTIVE SERVICE Ot J44.9 CHRONIC OBSTRUCTIVE PULMONARY DISEASE, U 11/11/2019 LISSA OATES SALES AGENT PROTECTIVE SERVICE Ot R59.0 LOCALIZED ENLARGED LYMPH NODES 11/11/2019 LISSA OATES SALES AGENT PROTECTIVE SERVICE Ot Z72.0 TOBACCO USE 11/11/2019 LISSA OATES SALES AGENT PROTECTIVE SERVICE Ot Z85.118 PERSONAL HISTORY OF MALIGNANT NEOPLASM O 11/11/2019 AKANKSHA FERRO FAC, ALI FACP CCDS Ot E11.9 TYPE 2 DIABETES MELLITUS WITHOUT COMPLIC 11/11/2019 AKNAKSHA FERRO [facility], ALI FACP CCDS Ot I25.10 ATHSCL HEART DISEASE OF [place] CORONARY 11/11/2019 AKANKSHA FERRO [facility], ALI FACP CCDS Ot I34.0 NONRHEUMATIC MITRAL (VALVE) INSUFFICIENC 11/11/2019 AKANKSHA FERRO [facility], ALI FACP CCDS Ot I77.89 OTHER SPECIFIED DISORDERS OF ARTERIES AN 11/11/2019 AKANKSHA FERRO FAC, ALI FACP CCDS Ot Z86.73 PRSNL HX OF TIA (TIA), AND CEREB INFRC W 11/11/2019 AKANKSHA FERRO [facility], ALI FACP CCDS Ot Z87.891 PERSONAL HISTORY OF NICOTINE DEPENDENCE 11/11/2019 AKANKSHA FERRO [facility], ALI FACP CCDS Ot I25.10 ATHSCL HEART DISEASE OF [place] CORONARY 11/11/2019 AKANKSHA CHAMBERS, ALI FACP CCDS Ot I77.89 OTHER SPECIFIED DISORDERS OF ARTERIES AN 11/11/2019 AKANKSHA CHAMBERS, ALI FACP CCDS Ot Z87.891 PERSONAL HISTORY OF NICOTINE DEPENDENCE 11/11/2019 CHAPO BARRETO MD Ot C34.30 MALIGNANT NEOPLASM OF LOWER LOBE, UNSP B 11/11/2019 CHAPO BARRETO MD Ot J43.2 CENTRILOBULAR EMPHYSEMA 11/11/2019 CHAPO BARRETO MD Ot K86.9 DISEASE OF PANCREAS, UNSPECIFIED 11/11/2019 SRAVAN LOVE MD, Ot E11 .9 TYPE 2 DIABETES MELLITUS WITHOUT COMPLIC 11/11/2019 SRAVAN LOVE MD, Ot E78.00 PURE HYPERCHOLESTEROLEMIA, UNSPECIFIED 11/11/2019 SRAVAN LOVE MD, Ot F32 .9 MAJOR DEPRESSIVE DISORDER, SINGLE EPISOD 11/11/2019 SRAVAN LOVE MD, Ot G45 .9 TRANSIENT CEREBRAL ISCHEMIC ATTACK, UNSP 11/11/2019 SRAVAN LOVE MD, Ot G47.33 OBSTRUCTIVE SLEEP APNEA (ADULT) (PEDIATR 11/11/2019 SRAVAN LOVE MD, Ot I10 ESSENTIAL (PRIMARY) HYPERTENSION 11/11/2019 SRAVAN LOVE MD, Ot I25.10 ATHSCL HEART DISEASE OF [place] CORONARY 11/11/2019 SRAVAN LOVE MD, Ot J43 .9 EMPHYSEMA, UNSPECIFIED 11/11/2019 SRAVAN LOVE MD, Ot K21 .9 GASTRO-ESOPHAGEAL REFLUX DISEASE WITHOUT 11/11/2019 SRAVAN LOVE MD, Ot M54 .9 DORSALGIA, UNSPECIFIED 11/11/2019 SRAVAN LOVE MD, Ot R00 .2 PALPITATIONS 11/11/2019 SRAVAN LOVE MD Ot R09.02 HYPOXEMIA 11/11/2019 SRAVAN LOVE MD, Ot R47.01 APHASIA 11/11/2019 SRAVAN LOVE MD, Ot Z20.828 CONTACT W AND EXPOSURE TO OTH VIRAL COMM 11/11/2019 SRAVAN LOVE MD, Ot Z79.82 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 11/11/2019 SRAVAN LOVE MD, Ot Z79.84 ALF (CURRENT) USE OF ORAL HYPOGLYC 11/11/2019 SRAVAN LOVE MD, Ot Z79.899 OTHER MACHINE HEEL BUILDER (CURRENT) DRUG THERAPY 11/11/2019 SRAVAN LOVE MD, Ot Z82.49 FAMILY HX OF ISCHEM HEART DIS AND OTH DI 11/11/2019 SRAVAN LOVE MD, Ot Z85.118 PERSONAL HISTORY OF MALIGNANT NEOPLASM O 11/11/2019 SRAVAN LOVE MD, Ot Z87.19 PERSONAL HISTORY OF OTHER DISEASES OF TH 11/11/2019 SRAVAN LOVE MD, Ot Z87.891 PERSONAL HISTORY OF NICOTINE DEPENDENCE 11/11/2019 SRAVAN LOVE MD, Ot Z88 .8 ALLERGY STATUS TO OTH DRUG/MEDS/BIOL SUB 11/11/2019 SRAVAN LOVE MD, Ot Z91.018 ALLERGY TO OTHER FOODS 11/11/2019 SRAVAN LOVE MD, Ot Z92.21 PERSONAL HISTORY OF ANTINEOPLASTIC CHEMO 11/11/2019 SRAVAN LOVE MD, Ot Z95 .5 PRESENCE OF CORONARY ANGIOPLASTY IMPLANT Procedures Code [place] [address] XRAY CHEST 2 VIEW 05/24/2012 Cardiolog Bradly Begum 05/24/2012 [id number] ROUT INE VENIPUNCTURE 06/05/2012 13292 A1C (IN-HOUSE) 06/05/2012 63215 CBC 06/05/2012 67013 LIVE R PANEL (LFT) 06/05/2012 46826 CMP 06/05/2012 [id number] GF R CALC (RESULT ONLY) 06/05/2012 90099 ROUT INE VENIPUNCTURE 06/07/2012 52661 CBC 06/07/2012 51710 CMP 06/07/2012 33135 LIPI D PANEL 06/07/2012 87718 MAGNESIUM 06/07/2012 [id number] GF R CALC (RESULT ONLY) 06/07/2012 36917 TSH 06/07/2012 49481 LIPASE 06/07/2012 99575 BNP 06/07/2012 42852 PSA FREE AND TOTAL 06/07/2012 49529 EKG, TRACING (IN-HOUSE) 06/09/2012 95122 ECHO 2D 06/09/2012 79534 OXIMETRY 06/09/2012 86679 BMP 07/03/2012 06172 CMP 07/03/2012 76194 LIPI D PANEL 07/03/2012 27146 A1C (IN-HOUSE) 07/03/2012 19618 HEMO GLOBIN (IN-HOUSE) 07/03/2012 59448 CBC 07/03/2012 37999 ROUT INE VENIPUNCTURE 08/05/2012 45149 EKG, TRACING (IN-HOUSE) 08/05/2012 49022 HEMO GLOBIN (IN-HOUSE) 08/05/2012 41829 A1C (IN-HOUSE) 08/05/2012 89999 CBC 08/05/2012 59143 CMP 08/05/2012 08587 LIPI D PANEL 08/05/2012 15117 A1C (IN-HOUSE) 08/23/2012 Dione Conner Jeri 08/23/2012 Trevor Jules Storm 09/06/2012 97839 A1C (IN-HOUSE) 11/29/2012 79401 ROUT INE VENIPUNCTURE 02/07/2013 [id number] GF R CALC (RESULT ONLY) 02/07/2013 23156 CMP 02/07/2013 40358 LIPI D PANEL 02/07/2013 20578 A1C (IN-HOUSE) 03/21/2013 62741 ROUT INE VENIPUNCTURE 03/26/2013 91749 OXIMETRY 03/26/2013 [id number] IM MATURE PLATELET FRACTION (RESULT ONLY) 03/27/2013 93180 DIFF ERENTIAL WBC COUNT (CBC DIFF RESULT) 03/27/2013 71577 RETI CULOCYTE COUNT 03/27/2013 73084 KENNY PHERIAL BLOOD SMEAR 03/27/2013 [id number] CO MPLETE BLOOD COUNT NO DIFF (CBC Result) 03/27/2013 [id number] HE MATOLOGY OTHER REPORT 03/27/2013 03545 ROUT INE VENIPUNCTURE 06/09/2013 [id number] GF R CALC (RESULT ONLY) 06/09/2013 50972 CMP 06/09/2013 26408 LIPI D PANEL 06/09/2013 12817 A1C (IN-HOUSE) 06/23/2013 25498 ROUT INE VENIPUNCTURE 09/17/2013 [id number] GF R CALC (RESULT ONLY) 09/17/2013 31310 CMP 09/17/2013 99079 LIPI D PANEL 09/17/2013 60903 OXIMETRY 09/24/2013 63388 A1C (IN-HOUSE) 02/18/2014 83916 ROUT INE VENIPUNCTURE 02/18/2014 57559 MICR O ALBUMIN-IN HOUSE 02/18/2014 12064 LIPI D PANEL 02/18/2014 85578 LIVE R PANEL (LFT) 02/18/2014 49233 URIC ACID 02/18/2014 Results Test Result Range [...] 7-25 CREATININE 1.15 mg/dL 0.70-1.25 eGFR NON-AFR. ARMENIAN 67 mL/min/1.73m2 > OR = 60 eGFR [...] 7-25 CREATININE 1.07 mg/dL 0.70-1.25 eGFR NON-AFR. ARMENIAN 73 mL/min/1.73m2 > OR = 60 eGFR [...] 140-400 MPV 11.5 fL 7.5-12.5 ABSOLUTE NEUTROPHILS 55611 cells/uL 1500 -7800 ABSOLUTE LYMPHOCYTES 2111 cells/uL [...] % NRG Automated blood complete blood count (he mogram) panel - 01/07/19 07:13 Blood leukocytes automated [...] mg/dL 70-110 COVID-19 ([facility]) - 10/15/19 15:25 Complete urinalysis with reflex to cultu re - 11/10/19 02:40 Urine color determination YELLOW NRG Urine clarity determination CLEAR NR G Urine pH measurement by test strip 5.5 5-9 Specific gravity of urine by test strip 1.015 1.016-1.022 Urine protein assay by test strip, semi-quantitative NEGATIVE NEGATIVE Urine glucose detection by automated test strip NE GATIVE NEGATIVE Erythrocytes detection in urine sediment by light micr oscopy NEGATIVE NEGATIVE Urine ketones detection by automated test strip NE GATIVE NEGATIVE Urine nitrite detection by test strip NEGATIVE NEGATIVE Urine total bilirubin detection by test strip NEGA TIVE NEGATIVE Urine urobilinogen measurement by automated test strip (mass/volume) 0.2 mg/dL < = 1.0 Urine leukocyte esterase detection by dipstick NEG ATIVE NEGATIVE Automated urine sediment erythrocyte cou nt by microscopy (number/high power field) NONE NRG Automated urine sediment leukocyte count by microscopy (number/high power field) NONE NRG Bacteria detection in urine sediment by light microsco py NEGATIVE NRG Squamous epithelial cells detection in u rine sediment by light microscopy NONE NRG Crystals detection in urine sediment by light microsco py NONE NRG Casts detection in urine sediment by light microscopy NONE NRG Mucus detection in urine sediment by light microscopy NEGATIVE NRG Complete urinalysis with reflex to culture NO NRG Capillary blood glucose measurement by g [...] platelet poor plasma (mass/volume) 1.08 ug/mL 0.00-0.49 Whole blood basic metabolic panel - 10/22 05/12 03:14 Serum or plasma sodium measurement (moles/volume) 138 mmol/L 135-145 Serum or plasma potassium measurement (moles/volume) 4.5 mmol/L 3.6-5.0 Serum or plasma chloride measurement (moles/volume) 107 mmol/L 98-107 Carbon dioxide 19 mmol/L 21-32 Serum or plasma anion gap determination (moles/volume) 12 mmol/L 5-14 Serum or plasma urea nitrogen measurement (mass/volume ) 21 mg/dL 7-18 Serum or plasma creatinine measurement (mass/volume) 1.04 mg/dL 0.60-1.30 Serum or plasma urea nitrogen/creatinine mass ratio 20 NRG Serum or plasma creatinine measurement w ith calculation of estimated glomerular filtration rate > NRG Serum or plasma glucose measurement (mass/volume) 113 mg/dL 70-105 Serum or plasma calcium measurement (mass/volume) 9.1 mg/dL 8.5-10.1 Lipid 1996 panel - 11/11/19 03:14 Serum or plasma triglyceride measurement (mass/volume) 196 mg/dL <150 Serum or plasma cholesterol measurement (mass/volume) 121 mg/dL < 200 Serum or plasma cholesterol in HDL measurement (mass/v olume) 28 mg/dL 40-60 Cholesterol in LDL [mass/volume] in serum or plasma by direct assay 74 mg/dL 1-129 Serum or plasma cholesterol in VLDL measurement (mass/ volume) 39 mg/dL 5-40 Complete blood count (CBC) with automate d white blood cell (WBC) differential - 11/11/19 03:14 Blood leukocytes automated count (number/volume) 13.3 10*3/uL 4.3-11.0 Blood erythrocytes automated count (number/volume) 4.88 10*6/uL 4.35-5.85 Venous blood hemoglobin measurement (mass/volume) 13.8 g/dL 13.3-17.7 Blood hematocrit (volume fraction) 42 % 40-54 Automated erythrocyte mean corpuscular volume 85 [ foz_us] 80-99 Automated erythrocyte mean corpuscular h emoglobin (mass per erythrocyte) 28 pg 25-34 Automated erythrocyte mean corpuscular h emoglobin concentration measurement (mass/volume) 33 g/dL 32-36 Automated erythrocyte distribution width ratio 16. 6 % 10.0- 14.5 Automated blood platelet count (count/volume) 241 10*3/uL 130-400 Automated blood platelet mean volume measurement 11.2 [foz_us] 7.4-10.4 Automated blood neutrophils/100 leukocytes 79 % 42-75 Automated blood lymphocytes/100 leukocytes 13 % 12-44 Blood monocytes/100 leukocytes 7 % 0-12 Automated blood eosinophils/100 leukocytes 1 % 0-10 Automated blood basophils/100 leukocytes 0 % 0-10 Blood neutrophils automated count (number/volume) 10.5 10*3 1.8-7.8 Blood lymphocytes automated count (number/volume) 1.7 10*3 1.0-4.0 Blood monocytes automated count (number/volume) 0. 9 10*3 0.0-1.0 Automated eosinophil count 0.1 10*3/uL 0 .0-0.3 Automated blood basophil count (count/volume) 0.1 10*3/uL 0.0-0.1 Coronavirus SARS-CoV-2 SO 2019 - 0 11:09 Coronavirus Ab [Units/volume] in Serum Negative Negative Automated blood complete blood count (he mogram) panel - 12/02/19 07:20 Blood leukocytes automated count (number/volume) 9.5 10*3/uL 4.3-11.0 Blood erythrocytes automated count (number/volume) 5.31 10*6/uL 4.35-5.85 Venous blood hemoglobin measurement (mass/volume) 15.1 g/dL 13.3-17.7 Blood hematocrit (volume fraction) 45 % 40-54 Automated erythrocyte mean corpuscular volume 85 [ foz_us] 80-99 Automated erythrocyte mean corpuscular h emoglobin (mass per erythrocyte) 28 pg 25-34 Automated erythrocyte mean corpuscular h emoglobin concentration measurement (mass/volume) 33 g/dL 32-36 Automated erythrocyte distribution width ratio 16. 1 % 10.0- 14.5 Automated blood platelet count (count/volume) 245 10*3/uL 130-400 Automated blood platelet mean volume measurement 11.0 [foz_us] 7.4-10.4 Comprehensive metabolic panel - 12/02/19 07:20 Serum or plasma sodium measurement (moles/volume) 138 mmol/L 135-145 Serum or plasma potassium measurement (moles/volume) 4.4 mmol/L 3.6-5.0 Serum or plasma chloride measurement (moles/volume) 104 mmol/L 98-107 Carbon dioxide 23 mmol/L 21-32 Serum or plasma anion gap determination (moles/volume) 11 mmol/L 5-14 Serum or plasma urea nitrogen measurement (mass/volume ) 19 mg/dL 7-18 Serum or plasma creatinine measurement (mass/volume) 1.36 mg/dL 0.60-1.30 Serum or plasma urea nitrogen/creatinine mass ratio 14 NRG Serum or plasma creatinine measurement w ith calculation of estimated glomerular filtration rate 53 NRG Serum or plasma glucose measurement (mass/volume) 131 mg/dL 70-105 Serum or plasma calcium measurement (mass/volume) 9.4 mg/dL 8.5-10.1 Serum or plasma total bilirubin measurement (mass/volu me) 0.4 mg/dL 0.1-1.0 Serum or plasma alkaline phosphatase shelley surement (enzymatic activity/volume) 131 U/L 40-136 Serum or plasma aspartate aminotransfera se measurement (enzymatic activity/volume) 33 U/L 5-34 Serum or plasma alanine aminotransferase measurement (enzymatic activity/volume) 40 U/L 0-55 Serum or plasma protein measurement (mass/volume) 7.4 g/dL 6.4-8.2 Serum or plasma albumin measurement (mass/volume) 4.1 g/dL 3.2-4.5 CALCIUM CORRECTED 9.3 mg/dL 8.5-10.1 Lipid 1996 panel - 12/02/19 07:20 Serum or plasma triglyceride measurement (mass/volume) 168 mg/dL <150 Serum or plasma cholesterol measurement (mass/volume) 127 mg/dL < 200 Serum or plasma cholesterol in HDL measurement (mass/v olume) 40 mg/dL 40-60 Cholesterol in LDL [mass/volume] in serum or plasma by direct assay 76 mg/dL 1-129 Serum or plasma cholesterol in VLDL measurement (mass/ volume) 34 mg/dL 5-40 PT panel in platelet poor plasma by coag ulation assay - 12/02/19 07:20 Prothrombin time (PT) in platelet poor plasma by coagu lation assay 13.9 s 12.2-14.7 INR in platelet poor plasma or blood by coagulation as say 1.0 0.8-1.4 Activated partial thromboplastin time (a PTT) in platelet poor plasma bycoagulation assay - 12/02/19 07:20 Activated partial thromboplastin time (a PTT) in platelet poor plasma bycoagulation assay 27 s 24-35 Encounters ACCT No. Visit Date/Time Discharge Status Pt. Type Provider Facility Loc./Unit Complaint [id number] 07/07/2016 13:06:00 Document Registration [id number] 01/27/2015 10:10:15 ACT Document Registration [id number] 08/21/2018 09:23:00 08/21/2018 23:59: 00 DIS Outpatient SHINE MOONEY [id number] 11/11/2019 12:00:00 23:59:59 CLS Preadmit AKANKSHA FERRO FACC, ALI FACP CCDS [facility] CATH CAD [id number] 11/10/2019 23:06:00 16:42:00 DIS Inpatient SRAVAN LOVE MD [facility] ICU EXPRESSIVE APHASIA,WEAK NESS [id number] 10/07/2019 09:25:00 23:59:59 CLS Outpatient ESTEVAN FERRO, CHAPO Arora [facility] RAD MALIGNANT NEOPLASM OF L OWER LOBE LUNG [id number] 09/16/2019 07:06:00 23:59:59 CLS Outpatient AKANKSHA FERRO FACC, DELBETR CHAMBERSP CC DS [facility] CARD CHEST DISCO MFORT,HX OF TOBACCO USE,CAD [id number] 06/10/2019 08:38:00 23:59:59 CLS Outpatient AKANKSHA FERRO FACC, DELBERT FACP CC DS [facility] CARD CAD,DM [id number] 04/30/2019 08:00:00 13:00:00 DIS Outpatient AKANKSHA FERRO FACC, DELBERT CHAMBERSP CC DS [facility] CR STENT [id number] 04/30/2019 08:28:00 23:59:59 CLS Outpatient LISSA OATES APRN [facility] RAD COPD [id number] 01/07/2019 06:50:00 10:11:00 DIS Outpatient AKANKSHA FERRO FACC, DELBERT CHAMBERSP CC DS [facility] CATH CAD [id number] 11/28/2018 12:48:00 13:50:00 DIS Outpatient ANAYELI KIRKPATRICK SALES AGENT PROTECTIVE SERVICE [facility] REHAB LOW BACK PAIN [id number] 11/28/2018 12:49:00 13:45:00 DIS Outpatient PAMELA RAMSEY [facility] REHAB R KNEE PAIN [id number] 08/14/2018 09:13:00 23:59:59 CLS Outpatient PAMELA RAMSEY 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 [facility] RAD BACK PAIN [id number] 06/13/2018 08:06:00 23:59:59 CLS Outpatient PAMELA RAMSEYP [facility] RAD BACK PAIN [id number] 04/05/2018 07:31:00 09:20:00 DIS Out[facility] MASS WART HINS TUMOR [id number] 03/29/2018 11:14:00 15:11:00 DIS Outpatient ADRIEL WHEELER MD [facility] PREOP RIGHT PAROTIDECTOMY [id number] 03/12/2018 07:37:00 23:59:59 CLS Outpatient AKANKSHA FERRO FACC, DELBERT GOEL CC DS [facility] CATH H/O TIA,PALPITATIONS,SOB,CAD [id number] 03/05/2018 12:16:00 23:59:59 CLS Preadmit LISSA OATES APRN [facility] PULM COPD,HISTORY OF LUNG CANCER,SOB,TOBACCO USER [id number] 03/05/2018 12:14:00 23:59:59 CLS Outpatient LISSA OATES APRN [facility] RAD COPD,HISTORY OF LUNG CANCER,SOB,TOBACCO USER [id number] 03/05/2018 10:37:00 23:59:59 CLS Outpatient LISSA OATES APRN [facility] RT J44.9,Z85.118 [id number] 12/31/2017 15:45:00 018 14:05:00 DIS Inpatient SRAVAN LOVE MD [facility] ICU CVA POSSIBLE [id number] 09/21/2016 13:34:00 017 23:59:59 CLS Outpatient AKANKSHA FERRO FACC, DELBERT GOEL CC DS [facility] CARD I25.10,E13. 9 [id number] 09/12/2016 08:59:00 017 18:00:00 DIS Outpatient SRIDHAR BLACK [facility] CATH CAD,DM,HL [id number] 09/07/2016 15:57:00 017 23:59:59 CLS Preadmit AKANKSHA FERRO FACC, DELBERT GOEL CCDS [facility] RT I25.10,E13.9 [id number] 07/31/2016 10:29:00 017 13:50:00 DIS Outpatient MILE CHOWDHURY DO [facility] SDC HISTORY LUNG CA [id number] 07/28/2016 09:18:00 017 13:24:00 DIS Outpatient MILE CHOWDHURY DO [facility] PREOP PORT REMOVAL [id number] 04/28/2015 00:10:00 016 23:59:59 CLS Preadmit JAMMIE NAVA MD [facility] ONC [id number] 04/14/2015 14:37:00 016 00:01:00 DIS Outpatient JAMMIE NAVA MD [facility] ONC [id number] 01/20/2015 12:38:00 015 00:01:00 DIS Outpatient JAMMIE NAVA MD [facility] ONC [id number] 12/16/2014 08:58:00 015 23:59:59 CLS Outpatient VISHNU STARKS 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 [facility] ONC [id number] 11/10/2014 14:23:00 23:59:59 CLS Outpatient ESTEVAN FERRO, CHAPO Arora [facility] RAD NEOPLASM, [id number] 09/01/2014 12:50:00 14:00:00 DIS Outpatient DARSHAN RODRIGUEZ MD [facility] CHEST PAIN R LUNG MASS [id number] 12/30/2012 06:03:00 013 10:10:00 DIS Outpatient GABI VALENCIA MD [facility] SDC HEALED FRACTURE RIGHT T IBIA WITH RETAINED HARDWARE [id number] 12/25/2012 07:40:00 23:59:59 CLS Outpatient GABI VALENCIA MD [facility] PREOP HEALED FRACTURE RIGHT T IBIA WITH RETAINED HARDWARE [id number] 12/02/2019 08:00:00 P EN Preadmit AKANKSHA FERRO FACC, ALI FACP CCDS [facility] CAD,CHEST DISCOMFORT,DM II,A BNORMAL STRESS TEST [id number] 09/01/2014 12:38:00 Document Registration [id number] 09/01/2014 12:38:00 Document Registration [id number] 06/06/2012 10:32:00 Document Registration [id number] 08/29/2011 20:50:00 Document Registration [id number] 11/16/2010 05:38:00 Document Registration [id number] 11/08/2010 06:44:00 Document Registration [id number] 11/14/2019 14:20:00 11/14/2019 23:59:5 9 CLS Outpatient JAYE RIGGS APRN [facility] [id number] 10/15/2019 14:00:00 Document Registration [id number] 09/23/2018 09:00:00 Document Registration [id number] 08/22/2018 09:00:00 Document Registration [id number] 03/01/2018 08:00:00 Document Registration [id number] 01/10/2018 09:20:00 Document Registration [id number] 02/18/2014 11:25:00 02/18/2014 23:59: 59 CLS Outpatient JAYE RIGGS APRN [id number] 09/24/2013 08:52:00 09/24/2013 23:59: 59 CLS Outpatient IRMA ROGER DO [id number] 09/17/2013 08:27:00 09/17/2013 23:59: 59 CLS Outpatient ONEIL HODGE JAYE Mckayla [id number] 06/23/2013 10:57:00 06/23/2013 23:59: 59 CLS Outpatient ONEIL JAIMESJAYE Bobo [id number] 06/09/2013 07:54:00 06/09/2013 23:59: 59 CLS Outpatient ONEIL SALES AGENT PROTECTIVE SERVICEJAYE Bobo [id number] 04/14/2013 10:21:00 04/14/2013 23:59: 59 CLS Outpatient DARSHAN RODRIGUEZ MD [id number] 03/26/2013 09:21:00 03/26/2013 23:59: 59 CLS Outpatient DARSHAN RODRIGUEZ MD [id number] 03/21/2013 14:10:00 03/21/2013 23:59: 59 CLS Outpatient DARSHAN RODRIGUEZ MD [id number] 02/07/2013 10:19:00 02/07/2013 23:59: 59 CLS Outpatient ONEIL SALES AGENT PROTECTIVE SERVICEJAYE Bobo [id number] 07/03/2012 09:00:00 07/03/2012 23:59: 59 CLS Outpatient [id number] 06/14/2012 10:00:00 06/14/2012 23:59: 59 CLS Outpatient ONEIL JAIMESJAYE Bobo [id number] 06/07/2012 08:04:00 06/07/2012 23:59: 59 CLS Outpatient ONEIL JAIMESJAYE Bobo [id number] 05/24/2012 09:01:00 05/24/2012 23:59: 59 CLS Outpatient [id number] 11/29/2012 09:05:00 Document Registration [id number] 10/17/2012 13:38:00 Document Registration [id number] 09/06/2012 11:40:00 Document Registration [id number] 08/23/2012 08:42:00 Document Registration [id number] 08/05/2012 08:02:00 Document Registration
[2019-12-02] MEDS ORDERED: EPTIFIBATIDE BOLUS 20 ML IV ONE (09:00)
[2019-12-02] MEDS ORDERED: HEParin 1000 UNIT/ML (10ML VIAL) FOR BOLUS ONE (09:00)
[2019-12-02] MEDS ORDERED: NITRO DRIP 25000 MCG/D5W 0 ML IV ONE (09:00)
--- NOTE | 2019-12-02 09:50 | Cardiac Procedure Note-CS/ASA ---
Pre-Procedure Note Pre-Op Procedure Note H&P Reviewed The H&P was reviewed, patient examined and no changes noted. Date H&P Reviewed: Dec 02, 2019 Time H&P Reviewed: 08:50 Conscious Sedation Pre-Proced Time 08:50 ASA Score 3 For ASA 3 and 4: Consider anesthesia and medical clearance. Also, for patients with a history of failed moderate sedation consider anesthesia. Airway Lungs Heart ASA score ASA 1: a normal healthy patient ASA 2: a patient with a mild systemic disease (mid diabetes, controlled hypertension, obesity ASA 3: a patient with a severe systemic disease that limits activity (angina, COPD, prior Myocardial infarction) ASA 4: a patient with an incapacitating disease that is a constant threat to life (CHF, renal failure) ASA 5: a moribund patient not expected to survive 24 hrs. (ruptured aneurysm) ASA 6: a declared brain- patient whose organs are being harvested. For emergent operations, add the letter E after the classification Mallampati Classification Grade 3 Sedation Plan Analgesia, Amnesia, Plan communicated to team members, Discussed options with patient/fam, Discussed risks with patient/fam The patient is an appropriate candidate to undergo the planned procedure, sedation, and anesthesia. The patient immediately re-assessed prior to indication. DELBERT VALE MD FACP FAC CCDS Dec 02, 2019 09:50
[2019-12-02] MEDS ORDERED: PRASUGREL 10 MG (EFFIENT) TABLET ONE (09:55)
[2019-12-02] MEDS ORDERED: ASPIRIN 325 MG (5 GR) TABLET ONE (09:55)
[2019-12-02] MEDS ORDERED: ASPIRIN 81 MG CHEW (CHILDREN'S ASA) PO ONE (10:00)
[2019-12-02] MEDS ORDERED: NON-FORMULARY MEDICATION 1 EA EA (Semaglutide (Ozempic) 0.25 MG) SQ SCH (10:00)
[2019-12-02] MEDS ORDERED: POTASSIUM GLUCONATE 90 MG PO PRN (10:00)
[2019-12-02] MEDS ORDERED: PATIENT MAY USE OWN MEDS, ALL PO SCH (10:00)
[2019-12-02] MEDS ORDERED: RT-ALBUTEROL SULF 2.5 MG/3 ML PRE-MIX VIAL IH PRN (10:00)
[2019-12-02] MEDS ORDERED: PRASUGREL 10 MG (EFFIENT) TABLET PO SCH (10:00)
[2019-12-02] MEDS: NS IV 1000 ML 1,000 ML IV SCH ×2 (10:24→19:16)
[2019-12-02] MEDS ORDERED: ATROPINE INJECTION 1 MG/10 ML SYR (ABBOTT) ONE (12:33)
--- NOTE | 2019-12-02 12:57 | CARDIAC CATHETERIZATION ---
DATE OF SERVICE: 12/02/2019 CARDIAC CATHETERIZATION REPORT INDICATION FOR PROCEDURE: The patient is a 64-year-old gentleman with known coronary artery disease, who recently had a myocardial perfusion imaging study to evaluate chest discomfort and that indicated basal distal BSA inferior ischemia. Cardiac catheterization was carried out today after having obtained informed consent for cardiac catheterization and possible ad hoc coronary intervention. DESCRIPTION OF PROCEDURE: He was brought to the cardiac catheterization laboratory in a fasting state. The right groin was prepared and draped in the usual sterile fashion. Lidocaine 1% for local anesthesia. Modified Seldinger technique used to advance a 5-Cymro sheath in the right femoral artery, 5-Cymro JL4 catheter for the left coronary angiography, 5-Cymro JR4 catheter for the right coronary angiography and a 5-Cymro pigtail catheter was used for the left heart catheterization. Left ventricular angiography was not performed. This was because the creatinine was 1.36. We wanted to conserve contrast to reduce the risk of contrast nephropathy. Following completion of the diagnostic procedure, we carried out percutaneous intervention of the right coronary artery that is described below. PERCUTANEOUS INTERVENTION TO THE RIGHT CORONARY ARTERY: The right coronary artery is known to have overlapping stents that are from proximal to distal, Alpine Xience 3.5 x 12, 3.0 x 15, 3.0 x 18 and 3.0 x 18. These were exhibiting up to 95% stenosis at several spots. Also, there is approximately 80% stenosis distal to the distal edge of the stent in the distal right coronary artery just prior to its bifurcation into the posterolateral and posterior descending artery branches. We exchanged the sheath over a wire for a 6-Cymro sheath. We used a 6-Cymro JR4 guide catheter with side holes. We advanced a BMW wire, which we were not able to cross all the lesions with. We then used a Choice PT Graphix wire. We were able to cross the lesion and the tip of the vessel was placed in the posterior descending branch of the right coronary artery. We carried out balloon angioplasty in the long stented segment of the right coronary artery in its proximal and mid portions. Stenosis up to 95% was reduced to less than 50%. The very distal lesion, just prior to the bifurcation of the right coronary artery was 80% and was reduced to less than 50% following balloon angioplasty with the Emerge 2.0 x 15 mm balloon. The patient tolerated the procedure well. Angioplasty equipment was removed. The sheath was sutured in place. The patient received a double bolus of Integrilin and 6000 units of intravenous heparin during the procedure. He was transferred to the floor for manual sheath removal. HEMODYNAMICS: Left ventricular end-diastolic pressure following coronary angiography was 8 mmHg. There was no significant pressure gradient on pullback across the aortic valve. Ascending aortic pressure was 93/45 with a mean of 73 mmHg. LEFT VENTRICULAR ANGIOGRAPHY: Left ventricular angiography was not performed to conserve contrast. CORONARY ANGIOGRAPHY: Left main coronary artery, left anterior descending artery, left circumflex exhibit mild disease. Right coronary artery is dominant. It was exhibiting severe stenosis at multiple spots in its long-stented segment in the proximal and mid right coronary, to which successful balloon angioplasty was carried out with the reduction of stenosis to less than 50%. The distal right coronary artery prior to its bifurcation into posterolateral and posterior descending branches was exhibiting 80% stenosis that was reduced to less than 50% with the balloon angioplasty with Emerge 2.0 x 15 mm balloon. CONCLUSIONS: 1. Coronary artery disease primarily consisting of severe in-stent restenosis in a long-stented segment of the right coronary, to which successful balloon angioplasty was carried out with Emerge 3.5 x 15 mm balloon at several spots. In addition, there was an 80% stenosis in the distal right coronary artery, prior to its bifurcation, to which successful balloon angioplasty was carried out with the Emerge 2.0 x 15 mm balloon. The patient's stents are known to be, from proximal to distal, Alpine Xience 3.5 x 12, 3.0 x 15, 3.0 x 18 and 3.0 x 18. 2. Normal left ventricular end-diastolic pressure. DISCUSSION AND RECOMMENDATIONS: Risk factor modification has been reviewed. Dual antiplatelet therapy is being continued with a prasugrel and aspirin. Risk factor modification has been reviewed. He remains for observation at this time. Job ID: [id number] DocumentID: [id number] Dictated Date: 12/02/2019 10:17:59 Supervisor Assembly Date: 12/02/2019 12:57:00 Dictated By: DELBERT VALE MD, MA, FACP, FACC, MTDD
[2019-12-02] MEDS ORDERED: NON-FORMULARY MEDICATION 1 EA EA (Carboxymethylcellulos/Glycerin (Refresh Optive Eye Drops OU SCH (13:00)
[2019-12-02] MEDS ORDERED: PREGABALIN 150 MG (LYRICA) CAPSULE PO SCH (13:00)
[2019-12-02] MEDS ORDERED: ARTIFICAL TEARS 0.4 ML UNIT DOSE (REFRESH PLUS) OU SCH (13:00)
--- OUTSIDE RECORDS SUMMARY | 2019-12-02 13:00 | XMS REPORT | Continuity of Care Document ---
Author [facility] Organization [facility] Address Unknown Phone Unavailable Care Team Providers Care Department Helper Name Role Phone [facility] Unavailable Unavailable Problems Combined list of all problems from all Department of Defense and [facility] facilities. It does not include entries that were removed or entered in error. Problem Status Onset Date Problem Type Date of Resolution Comments Source Alcohol intake above recommended sensible limits [facility] Allergic conjunctivitis Active Condition ARTUR Luda Mcgowan [facility] Bilateral senile combined form cataracts of eyes Active Condition ARTUR Shu [facility] Bilateral tinnitus Active Condition [place] Luda Mcgowan [facility] Coronary arteriosclerosis Active Condition September 08, 2014 Entered By: PADMA LONG Comment: hx of ptca to RCA several yrs. ago September 08, 2014 Entered By: PADMA LONG Comment: heart cath 09/01/14, neg. 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 September 08, 2014 Entered By: PADMA LOGN Comment: per abdominal CT 09/01/14, [place] [facility] [facility] Dry eyes Active Condition [facility] Mcgowan [facility] Gastro-esophageal reflux disease without esophagitis (SNOMED CT 327866281) Active Condition [facility]UR [place] [facility] History of malignant neoplasm of lung Active Condition [facility]UR [place] [facility] Hyperlipidemia (SNOMED CT 35345663) Active Condition ARTUR [place] [facility] Lung mass Active Condition September 08, 2014 [...] angio of chest with contrast 09/01/14,[place] Sep 23, 2014 Entered By: PADMA LONG Comment: per path report- mod. differentiated bronchogenic adenoca. [facility] Neoplasm of uncertain behavior of skin of eyelid Active Condition [facility] Obesity Active Condition [facility] Obstructive sleep apnea syndrome (SNOMED CT 35574808) Active Condition [facility] Pancreatic cyst Active Condition [facility] Papilloma of right eyelid Active Condition [facility] Polyp of colon Active Condition Jan 24, 2016 Entered By: PADMA LONG Comment: c-scope 01/17/16, multiple benign colonic polyps Jun 28, 2017 Entered By: PADMA LONG Comment: c-scope,06/25/17,[facility], three benign polyps- sigmoid colon, transverse colon,cecum. see path report cprs [facility] Pulmonary emphysema Active Condition [facility] Sensorineural hearing loss, bilateral Active Condition [facility] Snoring Active Condition [facility] Type 2 diabetes mellitus without complication Active Condition [facility] Environmental Allergies (ICD-9-CM 477.9) Inactive Condition 8 [facility] External hemorrhoids without mention of complication (ICD-9-CM 455.3) Inactive Condition 12/18/2017 [facility] Impotence of organic origin (ICD-9-CM 607.84) Inactive Condition 8 [facility] Screening for Lipoid disorders (ICD-9-CM V77.91) Inactive Condition 7 [facility] Stye * (ICD-9-CM 373.11) Inactive Condition 12/18/2017 Jan 18, 2007 Entered By: PADMA LONG Comment: bilat lower lids, chr onic/recurrent [facility] Tobacco Use Disorder, Continuous I nactive Condition Jan 18, 2007 Entered By: PADMA LONG Comment: one ppd [facility] ICD-10-CM Z71.89 Other specified addiction counselor ing with Provider Comments: Other specified counseling active Diagnosis [facility] ICD-10-CM G47.33 Obstructive sleep apnea (adult) (pediatric) with Provider Comments: Obstructive Sleep Apnea (Adult) (Pediatric) active Diagnosis [facility] ICD-10-CM Z85.118 Personal history of ma lignant neoplasm of bronchus and lung with Provider Comments: History of malignant neoplasm of lung ([facility] [id number]) active Diagnosis [facility] ICD-10-CM R09.02 Hypoxemia with Provider Comments: Hypoxemia active Diagnosis [facility] ICD-10-CM B35.1 Tinea unguium with Provi clotilde Comments: Tinea Unguium active Diagnosis [facility] ICD-10-CM Q45.[address] with Provider Comments: Pancreatic cyst (SCT [id number]) active Diagnosis [facility] ICD-10-CM Z71.3 Dietary counseling and s urveillance with Provider Comments: Dietary counseling and surveillance active Diagnosis [facility] ICD-10-CM D23.112 Other benign neoplasm skin/ right lower eyelid, inc canthus with Provider Comments: Other benign neoplasm of skin of right lower eyelid, including canthus active Diagnosis [facility] ICD-10-CM D48.5 Neoplasm of uncertain be havior of skin with Provider Comments: Neoplasm of uncertain behavior of skin of eyelid (SCT [id number]) active Diagnosis [facility] ICD-10-CM R73.09 Other abnormal glucose with Provider Comments: Abnormal Glucose active Diagnosis [facility] ICD-10-CM G47.33 Obstructive sleep apnea (adult) (pediatric) with Provider Comments: Obstructive sleep apnea (adult) (pediatric) active Diagnosis [facility] ICD-10-CM G47.33 Obstructive sleep apnea (adult) (pediatric) with Provider Comments: Obstructive sleep apnea syndrome (SNOMED CT 74755055) active Diagnosis [facility] ICD-10-CM Z71.89 Other specified addiction counselor ing with Provider Comments: Other specified Counseling active Diagnosis [facility] ICD-10-CM D48.5 Neoplasm of uncertain be havior of skin with Provider Comments: Neoplasm of uncertain behavior of skin of eyelid (SNOMED CT 75304277) active Diagnosis [facility] ICD-10-CM M51.36 Other intervertebral di sc degeneration, lumbar region with Provider Comments: Other Intervertebral Disc Degeneration, Lumbar Region active Diagnosis [facility] ICD-10-CM E11.9 Type 2 diabetes mellitus without complications with Provider Comments: Type 2 diabetes mellitus without complication (SNOMED CT 344380191) active Diagnosis [facility] ICD-10-CM R68.89 Other general symptoms and signs with Provider Comments: General Symptoms & Signs active Diagnosis [facility] ICD-10-CM K21.9 Gastro-esophageal reflux disease without esophagitis with Provider Comments: Gastro-esophageal reflux disease without esophagitis (SCT [id number]) active Diagnosis [facility] ICD-10-CM I25.10 Athscl heart disease of [place] coronary artery w/o ang pctrs with Provider Comments: Atherosclerotic Heart Disease of [place] Coronary Artery without Angina Pectoris active Diagnosis [facility] ICD-10-CM I25.10 Athscl heart disease of [place] coronary artery w/o ang pctrs with Provider Comments: Athscl Hrt Disease w/o Ang Pctrs active Diagnosis [facility] ICD-10-CM M54.5 Low back pain with Provi clotilde Comments: Low Back Pain active Diagnosis [facility] ICD-10-CM Z86.73 Prsnl hx of TIA (TIA), and cereb infrc w/o resid deficits with Provider Comments: Personal History of Transient Ischemic Attack (Tia), and Cerebral Infarction without Residual Deficits active Diagnosis [facility] ICD-10-CM I25.10 Athscl heart disease of [place] coronary artery w/o ang pctrs with Provider Comments: Coronary arteriosclerosis (SCT [id number]) active Diagnosis [facility] ICD-10-CM K22.719 Castellanos's esophagus wi th dysplasia, unspecified with Provider Comments: Castellanos's Esophagus with Dysplasia, unspecified active Diagnosis [facility] ICD-10-CM 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 with Provider Comments: Malignant neoplasm of pancreatic duct active Diagnosis ARTUR LaresJuan M [facility] ICD-10-CM R94.8 Abnormal results of func tion studies of organs and systems with Provider Comments: Abnormal Results of Function Studies of Organs/Systems active Diagnosis [facility] ICD-10-CM K86.2 Cyst of pancreas with Pr ovider Comments: Cyst of pancreas active Diagnosis ARTUR [place] [facility] ICD-10-CM M25.561 Pain in right knee wit h Provider Comments: Pain in right Knee active Diagnosis [place] [facility] ICD-10-CM Z86.73 Prsnl hx of TIA (TIA), and cereb infrc w/o resid deficits with Provider Comments: Personal Hx of TIA/Cerebral Inf w/o Resid Deficits active Diagnosis [facility] LudaJuan M [facility] ICD-10-CM H90.3 Sensorineural hearing lo ss, bilateral with Provider Comments: Sensorineural hearing loss, bilateral (SCT [id number]) active Diagnosis ARTUR LudaJuan M [facility] Medications Combined list of all outpatient [...] DIRECTED TO TEST BLOOD GLUCOSE ACTIVE 12/19/2019 [id number] 09/04/2019 PAMELA RAMSEY 01/31/2019 [facility] ACCU-CHEK CHARLES PLUS (GLUCOSE) TEST STRIP USE 1 STRIP FOR TESTING TWO TIMES PER WEEK - DIRECTED TO TEST BLOOD GLUCOSE DISCONTINUE 07/25/2019 [id number] 11/12/2018 PAMELA RAMSEY 07/25/2018 [facility] ALBUTEROL SO4 90MCG/ACTUAT (CFC-F) INHL,ORAL,6.7GM INHALE 2 PUFFS BY ORAL INHALATION EVERY 4 HOURS NEEDED FOR BREATHING. SHAKE WELL. RINSE MOUTHPIECE FREQUENTLY TO PREVENT CLOGGING. USE NEEDED FOR SHORTNESS OF AIR/WHEEZING FOR BREATHING. SHAKE WELL. RINSE MOUTHPIECE FREQUENTLY TO PREVENT CLOGGING. USE NEEDED FOR SHORTNESS OF AIR/WHEEZING ACTIVE 12/19/2019 [id number] 09/04/2019 PAMELA RAMSEY 12/20/2018 [facility] ALCOHOL PREP PAD USE 1 PAD ON SKIN BIW TO CLEAN AND DISINFECT THE SKIN ACTIVE 09/29/2020 [id number] 09/30/2019 MAURICIO RANKIN 09/30/2019 [facility] ALCOHOL PREP PAD USE 1 PAD ON SKIN BIW TO CLEAN AND DISINFECT THE SKIN DISCONTINUE 12/19/2019 [id number] 06/06/2019 PAMELA RAMSEY 01/31/2019 [facility] ALCOHOL PREP PAD USE 1 PAD ON SKIN BIW TO CLEAN AND DISINFECT THE SKIN DISCONTINUE 07/25/2019 [id number] 11/12/2018 PAMELA RAMSEY 07/25/2018 [facility] ASCORBIC ACID 250MG TAB TAKE O NE TABLET BY MOUTH ONCE A DAY ACTIVE SHANIQUA SCHMIDT 11/12/2019 [facility] ASPIRIN 25MG/DIPYRIDAMOLE 200MG CAP,SA TAKE 1 CAPSULE BY MOUTH TWO TIMES A DAY - SWALLOW WHOLE. DO NOT CRUSH OR CHEW. FOR RECURRENT TIA/STROKE ACTIVE 12/19/2019 [id number] 12/20/2018 PAMELA RAMSEY 12/20/2018 [facility] ASPIRIN 25MG/DIPYRIDAMOLE 200MG CAP,SA TAKE 1 CAPSULE BY MOUTH TWO TIMES A DAY - SWALLOW WHOLE. DO NOT CRUSH OR CHEW. FOR RECURRENT TIA/STROKE DISCONTINUE 02/06/2019 [id number] 09/28/2018 ZACHARY GRECO 03/06/2018 ARTUR BLAS [facility] ASPIRIN 81MG TAB,EC TAKE ONE T ABLET BY MOUTH ONCE A DAY ACTIVE PADMA LONG 09/08/2014 [facility] ATORVASTATIN CA 80MG TAB TAKE ONE TABLET BY MOUTH AT BEDTIME FOR CHOLESTEROL - REPORT ANY UNEXPLAINED MUSCLE PAIN/WEAKNESS TO YOUR PROVIDER ACTIVE 12/19/2019 [id number] 09/04/2019 PAMELA RAMSEY 01/31/2019 [facility] ATORVASTATIN CA 80MG TAB TAKE ONE TABLET BY MOUTH AT BEDTIME FOR CHOLESTEROL - REPORT ANY UNEXPLAINED MUSCLE PAIN/WEAKNESS TO YOUR PROVIDER DISCONTINUE 12/20/2018 [id number] 11/12/2018 PAMELA RAMSEY 12/19/2017 [facility] BUDESONIDE 160MCG/FORMOTEROL FUM 4.5MCG/ SPRAY INHL,ORAL,10.2GM INHALE 2 PUFFS BY MOUTH TWO TIMES A DAY FOR BREATHING. SHAKE WELL. RINSE MOUTH AND SPIT AFTER EACH USE. ACTIVE 04/24/2020 [id number] 08/22/2019 LISSA OATES 04/28/2019 [facility] CALCIUM/VITAMIN D TAB TAKE BY MOUTH ONCE A DAY ACTIVE PADMA LONG 09/08/2014 [facility] CARBOXYMETHYLCELLULOSE NA 0.5% SOLN,OPH INSTILL ONE DROP IN BOTH EYES FOUR TIMES A DAY FOR DRY EYES ACTIVE 01/21 [id number] 09/04/2019 NEDA SHAW 01/31/2019 [facility] DICLOFENAC NA 1% GEL,TOP APPLY 2 GRAMS AFFECTED AREA TWO TIMES A DAY NEEDED FOR PAIN AND INFLAMMATION. DO NOT EXCEED 16GM DAILY TO ANY AFFECTED JOINT OF LOWER EXTREMITIES. DO NOT EXCEED 8GM DAILY TO ANY AFFECTED JOINT OF UPPER EXTREMITES. DO NOT EXCEED TOTAL DOSE OF 32GM DAILY FOR ALL JOINTS. DISCONTINUE 10/31/2018 [id number] 10/06/2018 ANAYELI KIRKPATRICK 10/06/2018 [facility] DICLOFENAC NA 1% GEL,TOP APPLY 2 GRAMS AFFECTED AREA TWO TIMES A DAY NEEDED FOR PAIN AND INFLAMMATION. DO NOT EXCEED 16GM DAILY TO ANY AFFECTED JOINT OF LOWER EXTREMITIES. DO NOT EXCEED 8GM DAILY TO ANY AFFECTED JOINT OF UPPER EXTREMITES. DO NOT EXCEED TOTAL DOSE OF 32GM DAILY FOR ALL JOINTS. 01/17/2019 [id number] 12/20/2018 PAMELA RAMSEY 12/20/2018 [facility] FLUTICASONE PROPIONATE 50MCG/SPRAY SOLN,NASAL,16GM INSTILL 1 SPRAY IN EACH NOSTRIL ONCE A DAY SHAKE GENTLY BEFORE USE! - MUST BE USED DIRECTED FOR 3 WEEKS TO PROVIDE BENEFIT. * NO EARLY REFILLS * 1UNIT = 30DAYS AT 4 PF/DAY OR 60DAYS AT 2PF/DAY ACTIVE 11/22 [id number] 08/26/2019 PAMELA RAMSEY 12/20/2018 [facility] KETOTIFEN 0.025% SOLN,OPH INST ILL 1 DROP IN BOTH EYES TWO TIMES A DAY FOR RELIEF OF ALLERGY SYMPTOMS IN EYE(S) ACTIVE 02/01/2020 [id number] 09/04/2019 NEDA SHAW 01/31/2019 [facility] LANCET,SOFTCLIX USE LANCET BIW FOR TESTING BLOOD GLUCOSE DIRECTED ACTIVE 09/29/2020 [id number] 09/30/2019 MAURICIO RANKIN 09/30/2019 [facility] LANCET,SOFTCLIX USE LANCET BIW FOR TESTING BLOOD GLUCOSE DIRECTED DISCONTINU E 12/19/2019 [id number] 06/06/2019 PAMELA RAMSEY 01/31/2019 [facility] LANCET,SOFTCLIX USE LANCET BIW FOR TESTING BLOOD GLUCOSE DIRECTED DISCONTINU E 07/25/2019 [id number] 11/12/2018 PAMELA RAMSEY 07/25/2018 [facility] LISINOPRIL 40MG TAB TAKE ONE-H CARE HOME TABLET BY MOUTH EVERY MORNING ACTIVE PAMELA RAMSEY 12/18/2018 [facility] LORATADINE/PSEUDOEPHEDRINE TAB,SA TAKE BY MOUTH ACTIVE JUAN LANG 08/07/2019 ARTUR BLAS [facility] MAGNESIUM OXIDE 400MG TAB TAKE ONE TABLET [...] LOWER STOMACH ACID (REPLACES ACIPHEX) ACTIVE 12/19/2019 [id number] 08/26/2019 PAMELA RAMSEY 12/20/2018 [facility] POLYETHYLENE GLYCOL 3350 PWDR,ORAL TAKE 1 CAPFUL (17GM) BY MOUTH ONCE A DAY ACTIVE SHANIQUA SCHMIDT 11/12/2019 [facility] POTASSIUM GLUCONATE TAB TAKE 9 0 MG BY MOUTH ONCE A DAY ACTIVE SHANIQUA SCHMIDT 11/12/2019 [facility] PRASUGREL HCL 10MG TAB TAKE ON E TABLET BY MOUTH ONCE A DAY ACTIVE KATHERINE MATT 03/11/2019 [facility] PREGABALIN 150MG CAP,ORAL TAKE 1 CAPSULE BY MOUTH TWO TIMES A DAY ACTIVE PAMELA RAMSEY 12/18/2017 [facility] SEMAGLUTIDE INJ,SOLN INJECT S UBCUTANEOUSLY EVERY WEEK ACTIVE ANAYELI KIRKPATRICK 10/01/2018 ARTUR BLAS [facility] TERBINAFINE HCL 1% CREAM,TOP A PPLY LIGHTLY TO AFFECTED AREA TWO TIMES A DAY FOR INFECTION ACTIVE 06/2020 [id number] 09/24/2019 ADRIEL HERNANDEZ 09/24/2019 [facility] UREA 20% CREAM,TOP APPLY LIGHT LY (20%) TO AFFECTED AREA TWO TIMES A DAY NEEDED TO PROMOTE HEALING,RUB IN UNTIL COMPLETELY ABSORBED*FOR TOPICAL USE ONLY* APPLY TO BOTH FEET DIRECTED. ACTIVE 09/25/2020 [id number] 09/26/2019 ADRIEL HERNANDEZ 09/26/2019 [facility] Allergies, [...] adverse reactions to drug (disorder) active 09/08/2014 [facility], VISN 15 PLAVIX Propensity to adverse react ions to drug (disorder) Propensity to adve rse reactions to drug (disorder) active 09/08/2014 [facility], SN 15 Immunizations Combined list of: 1) all immunizations on record at all [facility] ies, and 2) all available immunizations on record at Department of Defense (Do D) facilities. Some immunizations on record at [facility] may not be included. Immunization Series Date Given Administered By Site Reaction Lot Number CVX Code Drug Television Specialist Status Comments Source INFLUENZA, INJECTABLE, QUADRIVALENT, PRESERVATIVE FREE 01/28/2019 150 completed Partner: [facility]. Administere d by: [facility] Clinician (NPI=Not Provided). Partner Lot#: [id number] Mfr: [employer] [facility] INFLUENZA, INJECTABLE, QUADRIVALENT, PRESERVATIVE FREE 01/15/2018 150 completed [facility]: [facility]. Administere d by: [facility] (NPI=Not Provided). Partner Lot#: [id number] Mfr: [employer] [facility] INFLUENZA, UNSPECIFIED FORMULATION 12/22/2017 88 completed [facility], VISN 15 PNEUMOCOCCAL POLYSACCHARIDE PPV23 12/18/2017 33 completed [facility] INFLUENZA, UNSPECIFIED FORMULATION 04/26/2017 88 completed [facility] INFLUENZA, INJECTABLE, MDCK, PRESERVATIV E FREE, QUADRIVALENT 03/23/2017 171 complet ed Partner: [facility]. Administered by: Emilia schaeffer Clinician (NPI=Not Provided). Partner Lot#: [id number] Mfr: [facility] [facility] TDAP 2016 115 completed [facility] INFLUENZA, UNSPECIFIED FORMULATION 02/05/2016 88 completed [facility], VISN 15 INFLUENZA, UNSPECIFIED FORMULATION 02/21/2015 88 completed [facility], VISN 15 PNEUMOCOCCAL CONJUGATE PCV 13 09/08/2014 133 completed [facility] INFLUENZA, UNSPECIFIED FORMULATION 01/24/2014 88 completed [facility], VISN 15 TD(ADULT) UNSPECIFIED FORMULATION 10/05/2005 139 [...] >60 must be monitored over time. [facility] COMPREHENSIVE METABOLIC PANEL CALCIUM [MASS/VOLUME] IN SERUM OR PLASMA 9.4 mg/dL 8.4 - 10.4 09/23/2019 Specimen Type: PLASMA Comment: For eGFR: eGFR results >60 are imprecise. Many variables affect the calculated result. Interpretation of eGFR results >60 must be monitored over time. [facility] COMPREHENSIVE METABOLIC PANEL PROTEIN [MASS/VOLUME] IN SERUM OR PLASMA 7.3 g/dL 6.0 - 8.6 09/23/2019 Specimen Type: PLASMA Comment: For eGFR: eGFR results >60 are imprecise. Many variables affect the calculated result. Interpretation of eGFR results >60 must be monitored over time. [facility] COMPREHENSIVE METABOLIC PANEL ALBUMIN [MASS/VOLUME] IN SERUM OR PLASMA 4.1 g/dl 3.4 - 5.0 09/23/2019 Specimen Type: PLASMA Comment: For eGFR: eGFR results >60 are imprecise. Many variables affect the calculated result. Interpretation of eGFR results >60 must be monitored over time. [facility] COMPREHENSIVE METABOLIC PANEL BILIRUBIN.TOTAL [MASS/VOLUME] IN SERUM OR PLASMA 0.3 mg/dL 0.2 - 1.2 09/23/2019 Specimen Type: PLASMA Comment: For eGFR: eGFR results >60 are imprecise. Many variables affect the calculated result. Interpretation of eGFR results >60 must be monitored over time. [facility] COMPREHENSIVE METABOLIC PANEL ASPARTATE AMINOTRANSFERASE [ENZYMATIC [...] >60 must be monitored over time. [facility] COMPREHENSIVE METABOLIC PANEL ANION GAP IN SERUM OR PLASMA 8.9 2019 Specimen T ype: PLASMA Comment: For eGFR: eGFR results >60 are imprecise. Many variables affect the calculated result. Interpretation of eGFR results >60 must be monitored over time. [facility] COMPREHENSIVE METABOLIC PANEL CHLORIDE [MOLES/VOLUME] IN SERUM OR PLASMA 104 mEq/L 98 - 107 09/23/2019 Specimen Type: PLASMA Comment: For eGFR: eGFR results >60 are imprecise. Many variables affect the calculated result. Interpretation of eGFR results >60 must be monitored over time. [facility] COMPREHENSIVE METABOLIC PANEL "CARBON DIOXIDE, TOTAL [MOLES/VOLUME] IN SERUM OR PLASMA" 25.1 mEq/L 22 - 31 09/23/2019 Specimen Type: PLASMA Comment: For eGFR: eGFR results >60 are imprecise. Many variables affect the calculated result. Interpretation of eGFR results >60 must be monitored over time. [facility] COMPREHENSIVE METABOLIC PANEL ALKALINE PHOSPHATASE [ENZYMATIC ACTIVITY/VOLUME] IN SERUM OR PLASMA 154 U/L 40 - 150 09/23/2019 H Specimen Type: PLASMA Comment: For eGFR: eGFR results >60 are imprecise. Many variables affect the calculated result. Interpretation of eGFR results >60 must be monitored over time. [facility] COMPREHENSIVE METABOLIC PANEL GLOMERULAR FILTRATION RATE/1.73 [...] unable to calculate the albumin/creatinine ratio. [facility] MICROALBUMIN (ANANT,WI) RANDOM URINE PROTEIN [MASS/VOLUME] IN [...] No comment entered. [facility] URINALYSIS BILIRUBIN.TOTAL [TX ESENCE] IN URINE BY TEST STRIP Negative [...] Type: BLOOD No comment entered. [facility] BL[facility] CBC & DIFF ERYTHROCYTES [#/VOL UME] IN BLOOD BY AUTOMATED COUNT 5.61 M/ul 4.1 - 5.7 06/25/2019 Specimen Type: BLOOD No comment entered. [facility] & DIFF HEMOGLOBIN [MASS/VOLUME] IN BLOOD 15.2 g/dl 13.1 - 16.8 06/25/2019 Specimen T ype: BLOOD No comment entered. [facility] CBC & DIFF HEMATOCRIT [VOLUME FRACTION] OF BLOOD BY AUTOMATED COUNT 47.6 % 38.2 - 48.4 06/25/2019 Specimen Type: BLOOD No comment entered. [facility] CBC & DIFF MCV [ENTITIC VOLUME] BY A UTOMATED COUNT 84.8 fl 80.1 - 98.5 06/25/2019 Specimen Type: BLOOD No comment entered. [facility] CBC & DIFF MCH [ENTITIC MASS] BY AUT OMATED COUNT 27.1 pg 27.0 - 34.0 06/25/2019 Specimen T ype: BLOOD No comment entered. [facility] CBC & DIFF MCHC [MASS/VOLUME] BY AUT OMATED COUNT 31.9 g/dl 33.0 - 36.0 06/25/2019 L Specimen Type: BLOOD No comment entered. [facility] CBC & DIFF PLATELETS [#/VOLUME ] IN BLOOD BY AUTOMATED COUNT 270 K/cmm 150 - 400 06/25/2019 Specimen Type: BLOOD No comment entered. [facility] CBC & DIFF PLATELET MEAN VOLUM E [ENTITIC VOLUME] IN BLOOD BY AUTOMATED COUNT 10.6 fl 7.5 - 11.2 06/25/2019 Specimen Type: BLOOD No comment entered. [facility] CBC & DIFF ERYTHROCYTE DISTRIB UTION WIDTH [RATIO] BY AUTOMATED COUNT 17.8 % 11.8 - 15.1 06/25/2019 H Specimen Type: BLOOD No comment entered. [facility] CBC & DIFF LYMPHOCYTES/100 IVY KOCYTES IN BLOOD BY AUTOMATED COUNT 26.3 % 06/25/2019 Specimen Type: BLOOD No comment entered. [facility] CBC & DIFF NEUTROPHILS/100 IVY KOCYTES IN BLOOD BY AUTOMATED COUNT 61.2 % 06/25/2019 Specimen Type: BLOOD No comment entered. [facility] CBC & DIFF MONOCYTES/100 LEUKO CYTES IN BLOOD BY AUTOMATED COUNT 9.6 % 06/25/2019 Specimen Type: BLOOD No comment entered. [facility] CBC & DIFF MONOCYTES [#/VOLUME ] IN BLOOD BY AUTOMATED COUNT 0.8 K/cmm 0.19 - 0.80 06/25/2019 Specimen Type: BLOOD No comment entered. [facility] CBC & DIFF NEUTROPHILS [#/VOLU ME] IN BLOOD BY AUTOMATED COUNT 4.8 K/cmm 2.10 - 8.00 06/25/2019 Specimen Type: BLOOD No comment entered. [facility] [facility]PITAL CBC & DIFF EOSINOPHILS [#/VOLU ME] IN BLOOD BY AUTOMATED COUNT 0.1 K/cmm 0.00 - 0.60 06/25/2019 Specimen Type: BLOOD No comment entered. [facility] CBC & DIFF BASOPHILS [#/VOLUME ] IN BLOOD BY AUTOMATED COUNT 0.1 K/cmm 0.00 - 0.20 06/25/2019 Specimen Type: BLOOD No comment entered. [facility] CBC & DIFF EOSINOPHILS/100 IVY KOCYTES IN BLOOD BY AUTOMATED COUNT 1.7 % 06/25/2019 Specimen Type: BLOOD No comment entered. [facility] CBC & DIFF BASOPHILS/100 LEUKO CYTES IN BLOOD BY AUTOMATED COUNT 0.9 % 06/25/2019 Specimen Type: BLOOD No comment entered. [facility] CBC & DIFF LYMPHOCYTES [#/VOLU ME] IN BLOOD BY AUTOMATED COUNT 2.1 K/cmm 0.77 - 4.50 06/25/2019 Specimen Type: BLOOD No comment entered. [facility] CBC & DIFF IMMATURE GRANULOCYT ES [#/VOLUME] IN BLOOD BY AUTOMATED COUNT 0.02 K/cmm 0.00 - 0.05 06/25/2019 Specimen Type: BLOOD No comment entered. [facility] CBC & DIFF IMMATURE GRANULOCYT ES/100 LEUKOCYTES IN BLOOD BY AUTOMATED COUNT 0.3 % 06/25/2019 Specimen Type: BLOOD No comment entered. [facility] CA 19-9 CANCER AG 19-9 [UNITS/ [...] presence or absence of disease. [place] [facility] Vital Signs Combined list of inpatient and outpatient Vital Signs from all Department [facility] and/or [facility] medical facilities within the last 15 months. The included entries comply with the patient's data sharing authorizations. Vital Sign Value Date Comments Source PAIN 0 09/22 12:02:00 [facility] SYSTOLIC B[facility] PRESSURE 119mm[ Hg] 06/25/2019 [facility]:14[facility]02 [facility] 80mm[ Hg] 06/25/2019 14:14:02 [facility] WEIGHT 223.8[lb_av] 06/25/2019 14:14:02 [facility] BMI 31kg/m2 06/25/2019 14:14[facility]02 [facility] PAIN 3 06/24 14:14:02 [facility] TEMPERATURE 98.6[degF] 06/25/2019 14:14:02 [facility] PULSE 86/min 06/25/2019 14:14:02 [facility] RESPIRATION 18/min 06/25/2019 14:14[facility]02 [facility] PAIN 4 04/03 10:21[facility]00 [facility] 0 03/10 12:47:00 [facility] SYSTOLIC BLOOD PRESSURE 125mm[ Hg] 12/18/2018 08:35:41 [facility] DIASTOLIC BLOOD PRESSURE 70mm[ Hg] 12/18/2018 08:35:41 [facility] Encounters Combined list of encounters at [facility] and[facility]or [facility] [facility] for the last 15 months. Not all [place] inpatient encounters are included. The incl uded entries comply with the patient's data sharing authorizations. Location Location Details Encounter Type Encounter Number Reason For Visit Attending Provider ADM Date DC Date Status Disposition Source Outpatient Encounter [id number] _MAPID:e dxUxslmp752 06/13/2018 [facility] 15 Outpatient Encounter [id number] ICD-10 -CM Z71.3 Dietary counseling and surveillance with Provider Comments: Dietary counseling and surveillance JOE BOBO [facility]24[facility] [id number] _MAPID:hktFfzqyv442 06/26/2018 [facility] OFFICE/OUT PATIENT VISIT EST [id number] ICD-10- CM 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 Comments: Pancreatic cyst (SCT [id number]) ESTEVANCHAPO Luda 06/26/2018 [place] [facility] Outpatient Encounter [id number] _MAPID:e sgTqsokv205 06/26/2018 [facility] 15 Outpatient Encounter [id number] ICD-10 -CM G47.33 Obstructive sleep apnea (adult) (pediatric) with Provider Comments: Obstructive Sleep Apnea (Adult) (Pediatric) KARI DUPREE 06/28/2018 [place] [facility] Outpatient Encounter [id number] _MAPID:e tzJzlrjr065 06/28/2018 [facility] 15 Outpatient Encounter [id number] ICD-10 -CM Z71.3 Dietary counseling and surveillance with Provider Comments: Dietary counseling and surveillance GARY HARRINGTON 07/08/2018 [facility] Outpatient Encounter [id number] ICD-10 -CM H90.3 Sensorineural hearing loss, bilateral with Provider Comments: Sensorineural hearing loss, bilateral (SCT [id number]) CHASTITY JEAN 07/09/2018 [place] [facility] Outpatient Encounter [id number] _MAPID:tfhRtzzos168 07/09/2018 [facility] Outpatient Encounter [id number] _MAPID:pjxNgvqgj344 07/10/2018 [facility] Outpatient Encounter [id number] _MAPID:nbqKajzbs521 07/19/2018 [facility] Outpatient Encounter [id number] _MAPID:arnDzxxap458 07/19/2018 [facility] Outpatient Encounter [id number] _MAPID:e wjMpwwcs544 07/23/2018 [facility] 15 OFFICE/OUT PATIENT VISIT EST [id number] ICD-10 -CM Z86.73 Prsnl hx of TIA (TIA), and cereb infrc w/o resid deficits with Provider Comments: Personal Hx of TIA/Cerebral Inf w/o Resid Deficits ZACHARY GRECO 07/23/2018 [facility] OFFICE/OUT PATIENT VISIT EST [id number] ICD-10 -CM M25.561 Pain in right knee with Provider Comments: Pain in right Knee KAYLIE RAMSEYT 07/24/2018 [facility] OFFICE/OUT PATIENT VISIT EST [id number] ICD-10 -CM K86.2 Cyst of pancreas with Provider Comments: Cyst of pancreas ALF GUEVARA 07/25/2018 [facility] Outpatient Encounter [id number] ICD-10 -CM R94.8 Abnormal results of function studies of organs and systems with Provider Comments: Abnormal Results of Function Studies of Organs/Systems SHANIQUA SCHMIDT 07/25/2018 [facility] Outpatient Encounter [id number] _MAPID:e lcLosoeb99 07/26/2018 [facility] 15 Outpatient Encounter [id number] ICD-10 -CM Z71.89 Other specified counseling with Provider Comments: Other specified counseling JAMILAH GONZALES 07/29/2018 [facility] Outpatient Encounter [id number] _MAPID:e ttEnyfef62 07/31/2018 [facility] 15 Outpatient Encounter [id number] _MAPID:e riKtifgz69 08/07/2018 [facility] 15 Outpatient Encounter [id number] ICD-10 -CM Z71.89 Other specified counseling with Provider Comments: Other specified counseling JESÚS MCKENZIE 08/07/2018 [facility] OFFICE CON SULTATION [id number] ICD-10 -CM 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 with Provider Comments: Malignant neoplasm of pancreatic duct JESÚS NYE 08/08/2018 [facility] Outpatient Encounter [id number] ICD-10 -CM I25.10 Athscl heart disease of [place] coronary artery w/o ang pctrs with Provider Comments: Coronary arteriosclerosis (SCT [id number]) KALA JONES 08/08/2018 [facility] Outpatient Encounter [id number] ICD-10 -CM I25.10 Athscl heart disease of [place] coronary artery w/o ang pctrs with Provider Comments: Coronary arteriosclerosis (SCT [id number]) KALA JONES R 08/08/2018 [facility] Outpatient Encounter [id number] ICD-10 -CM I25.10 Athscl heart disease of [place] coronary artery w/o ang pctrs with Provider Comments: Coronary arteriosclerosis (SCT [id number]) KALA JONES R 08/08/2018 [facility] Outpatient Encounter [id number] _MAPID:e dnUyusbc92 08/14/2018 [facility] 15 OFFICE/[place] [id number] ICD-10 -CM 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 Comments: Pancreatic cyst (SCT [id number]) SANDRO MAYA 08/15/2018 [facility] OFFICE/OUT PATIENT VISIT EST [id number] ICD-10 -CM Z71.89 Other specified counseling with Provider Comments: Other specified Counseling [place] AGUIRRE 08/15/2018 [facility] Outpatient Encounter [id number] _MAPID:e afPpjvwo99 08/15/2018 [facility] 15 Outpatient Encounter [id number] _MAPID:e dxDuxxvo99 08/15/2018 [facility] 15 WI-EGD [id number] _MAPID :zehZmnqpl35 ALF GUEVARA 08/15/2018 [facility] Outpatient Encounter [id number] _MAPID:sdlRpbzpj60 ALF GUEVARA 08/15/2018 [facility] Outpatient Encounter [id number] _MAPID:qniCtadfs48 BALBIRAMBERCAROLINA L 08/15/2018 [facility] OFFICE/OUT PATIENT VISIT EST [id number] ICD-10 -CM Z71.89 Other specified counseling with Provider Comments: Other specified Counseling CHANEL WOLF 08/15/2018 [facility] Outpatient Encounter [id number] _MAPID:mljFcqtha54 CHANEL WOLF 08/15/2018 [facility] OFFICE/OUT PATIENT VISIT EST [id number] ICD-10 -CM Z71.89 Other specified counseling with Provider Comments: Other specified Counseling NABIL CARRILLO 08/15/2018 [facility] Outpatient Encounter [id number] _MAPID:sjtFsolmz82 08/16/2018 [facility] Outpatient Encounter [id number] ICD-10 -CM K22.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, unspecified with Provider Comments: Castellanos's Esophagus with Dysplasia, unspecified CAROLINA MCGREGOR 08/16/2018 [facility] Outpatient Encounter [id number] _MAPID:xqiNjgbiw48 08/16/2018 [facility] Outpatient Encounter [id number] ICD-10 -CM Z71.3 Dietary counseling and surveillance with Provider Comments: Dietary counseling and surveillance GARY HARRINGTON 08/20/2018 [facility] Outpatient Encounter [id number] _MAPID:e vsAcmzif57 08/21/2018 [facility] 15 Outpatient Encounter [id number] ICD-10 -CM Z71.89 Other specified counseling with Provider Comments: Other specified counseling JOAN ORTEGA 08/23/2018 [facility] Outpatient Encounter [id number] ICD-10 -CM Z71.89 Other specified counseling with Provider Comments: Other specified counseling ALYCIA WONG 08/27/2018 [facility] Outpatient Encounter [id number] _MAPID:aldUqtstl64 08/30/2018 [facility] Outpatient Encounter [id number] _MAPID:e ouXqmsvg55 09/03/2018 [facility] 15 Outpatient Encounter [id number] _MAPID:e psNurtmm50 KALA JONES 09/20/2018 [facility] 15 Outpatient Encounter [id number] ICD-10 -CM I25.10 Athscl heart disease of kn[place] coronary artery w/o ang pctrs with Provider Comments: Coronary arteriosclerosis (SCT [id number]) KALA JONES 09/20/2018 [facility] Outpatient Encounter [id number] ICD-10 -CM I25.10 Athscl heart disease of [place] coronary artery w/o ang pctrs with Provider Comments: Coronary arteriosclerosis (SCT [id number]) KALA JONES 09/20/2018 [facility] Outpatient Encounter [id number] ICD-10 -CM I25.10 Athscl heart disease of [place] coronary artery w/o ang pctrs with Provider Comments: Atherosclerotic Heart Disease of [place] Coronary Artery without Angina Pectoris KALA JONES 09/20/2018 [facility] Outpatient Encounter [id number] _MAPID:e fxXvvkxc43 09/20/2018 [facility] 15 Outpatient Encounter [id number] ICD-10 -CM Z86.73 Prsnl hx of TIA (TIA), and cereb infrc w/o resid deficits with Provider Comments: Personal History of Transient Ischemic Attack (Tia), and Cerebral Infarction without Residual Deficits TROY CASTELLANOS Gianna 09/27/2018 [facility] Outpatient Encounter [id number] ICD-10 -CM Z71.3 Dietary counseling and surveillance with Provider Comments: Dietary counseling and surveillance LENPANCHOGARY 09/30/2018 [place] [facility] OFFICE CON SULTATION [id number] ICD-10 -CM M54.5 Low back pain with Provider Comments: Low Back Pain ANAYELI KIRKPATRICK 10/01/2018 [facility] Outpatient Encounter [id number] ICD-10 -CM M54.5 Low back pain with Provider Comments: Low Back Pain JEFF HUFF 10/01/2018 [place] [facility] Outpatient Encounter [id number] _MAPID:e ecVigrxm95 10/02/2018 [facility] 15 Outpatient Encounter [id number] _MAPID:e ioUruxca02 10/28/2018 [facility] 15 Outpatient Encounter [id number] ICD-10 -CM I25.10 Athscl heart disease of [place] coronary artery w/o ang pctrs with Provider Comments: Athscl Hrt Disease w/o Ang Pctrs PEDRO KOROMA 11/11/2018 [facility] Outpatient Encounter [id number] _MAPID:e duGfztsj42 11/16/2018 [facility] 15 Outpatient Encounter [id number] _MAPID:e dySiquap23 12/05/2018 [facility] 15 Outpatient Encounter [id number] ICD-10 -CM I25.10 Athscl heart disease of [place] coronary artery w/o ang pctrs with Provider Comments: Atherosclerotic Heart Disease of [place] Coronary Artery without Angina Pectoris KALA JONES 12/05/2018 [facility] Outpatient Encounter [id number] ICD-10 -CM I25.10 Athscl heart disease of [place] coronary artery w/o ang pctrs with Provider Comments: Atherosclerotic Heart Disease of [place] Coronary Artery without Angina Pectoris KALA JONES 12/05/2018 [facility] Outpatient Encounter [id number] ICD-10 -CM I25.10 Athscl heart disease of [place] coronary artery w/o ang pctrs with Provider Comments: Atherosclerotic Heart Disease of [place] Coronary Artery without Angina Pectoris KALA JONES 12/05/2018 [facility] Outpatient Encounter [id number] ICD-10 -CM I25.10 Athscl heart disease of [place] coronary artery w/[facility] pctrs with Provider Comments: Atherosclerotic Heart Disease of [place] Coronary Artery without Angina Pectoris KALA JONES 12/05/2018 [facility] Outpatient Encounter [id number] _MAPID:e efKbnllx53 12/13/2018 [facility] 15 Outpatient Encounter [id number] _MAPID:e puAmmrfw58 12/17/2018 [facility] 15 OFFICE/OUT PATIENT VISIT EST [id number] ICD-10 -CM K21.9 Gastro-esophageal reflux disease without esophagitis with Provider Comments: Gastro-esophageal reflux disease without esophagitis ([facility] [id number]) PAMELA RAMSEY 12/18/2018 [facility] Outpatient Encounter [id number] ICD-10 -CM Z71.3 Dietary counseling and surveillance with Provider Comments: Dietary counseling and surveillance GARY HARRINGTON 12/18/2018 [facility] Outpatient Encounter [id number] _MAPID:zzuIeopmk52 12/19/2018 [facility] Outpatient Encounter [id number] _MAPID:rpiWohwrv98 12/24/2018 [facility] Outpatient Encounter [id number] ICD-10 -CM R68.89 Other general symptoms and signs with Provider Comments: General Symptoms & Signs ANA CONKLIN 12/24/2018 [place] [facility] Outpatient Encounter [id number] _MAPID:e rzDkfzif77 01/06/2019 [facility] Encounter [id number] _MAPID:zprCtuhza70 01/15/2019 [facility] Outpatient Encounter [id number] _MAPID:bbgXrbomd35 01/22/2019 [place] [facility] OFFICE/OUT PATIENT VISIT EST [id number] ICD-10 -CM E11.9 Type 2 diabetes mellitus without complications with Provider Comments: Type 2 diabetes mellitus without complication (SNOMED CT 117059143) ANDREW ALEJO 01/31/2019 [facility] Outpatient Encounter [id number] ICD-10 -CM M51.36 Other intervertebral disc degeneration, lumbar region with Provider Comments: Other Intervertebral Disc Degeneration, Lumbar Region NAGA MATAMOROS 03/10/2019 [facility] OFFICE CON SULTATION [id number] ICD-10 -CM D48.5 Neoplasm of uncertain behavior of skin with Provider Comments: Neoplasm of uncertain behavior of skin of eyelid (SNOMED CT 35664436) KATHERINE MATT 03/10/2019 [facility] Outpatient Encounter [id number] ICD-10 -CM Z71.89 Other specified counseling with Provider Comments: Other specified Counseling NÉSTOR CHEN 03/19/2019 [place] [facility] Outpatient Encounter [id number] ICD-10 -CM G47.33 Obstructive sleep apnea (adult) (pediatric) with Provider Comments: Obstructive sleep apnea (adult) (pediatric) KARI DUPREE Zaid 03/21/2019 [facility] En[facility] [id number] _MAPID:e eqBenfii24 03/21/2019 [facility] 15 Outpatient Encounter [id number] ICD-10 -CM G47.33 Obstructive sleep apnea (adult) (pediatric) with Provider Comments: Obstructive Sleep Apnea (Adult) (Pediatric) KARI DUPREE Zaid 03/21/2019 [facility] OFFICE/OUT PATIENT VISIT EST [id number] ICD-10 -CM G47.33 Obstructive sleep apnea (adult) (pediatric) with Provider Comments: Obstructive sleep apnea syndrome (SNOMED CT 30842341) EVONNEPHILIPPE MAURO 03/21/2019 [facility] Outpatient Encounter [id number] _MAPID:e szVuxtwe01 03/21/2019 [facility] 15 OFFICE/OUT PATIENT VISIT EST [id number] ICD-10 -CM G47.33 Obstructive sleep apnea (adult) (pediatric) with Provider Comments: Obstructive sleep apnea (adult) (pediatric) EVONNEPHILIPPE 03/21/2019 [facility] Outpatient Encounter [id number] _MAPID:jbwDllqez06 03/21/2019 [facility] Outpatient Encounter [id number] _MAPID:akyOaabps15 03/24/2019 [facility] Outpatient Encounter [id number] _MAPID:e leTqmsez10 03/26/2019 [facility] 15 Outpatient Encounter [id number] ICD-10 -CM R73.09 Other abnormal glucose with Provider Comments: Abnormal Glucose SHANIQUA SCHMIDT 03/26/2019 [facility] Outpatient Encounter [id number] _MAPID:dmyDhysvz73 03/31/2019 [facility] Outpatient Encounter [id number] ICD-10 -CM D48.5 Neoplasm of uncertain behavior of skin with Provider Comments: Neoplasm of uncertain behavior of skin of eyelid (SCT [id number]) KATHERINE MATT 04/03/2019 [facility] Outpatient Encounter [id number] _MAPID:e erYmylmq94 04/03/2019 [facility] 15 Outpatient Encounter [id number] ICD-10 -CM D23.112 Other benign neoplasm skin/ right lower eyelid, inc canthus with Provider Comments: Other benign neoplasm of skin of right lower eyelid, including canthus KATHERINE MATT 04/14/2019 [facility] Outpatient Encounter [id number] ICD-10 -CM Z71.3 Dietary counseling and surveillance with Provider Comments: Dietary counseling and surveillance GARY HARRINGTON 04/28/2019 [facility] Outpatient Encounter [id number] _MAPID:e yqNfsbxi63 06/17/2019 [facility] 15 OFFICE/OUT PATIENT VISIT EST [id number] ICD-10 -CM 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 Comments: Pancreatic cyst (SCT [id number]) CHAPO BARRETO 06/25/2019 [facility] Outpatient Encounter [id number] _MAPID:pzhVxnswc26 08/07/2019 [facility] Outpatient Encounter [id number] ICD-10 -CM 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 Comments: Pancreatic cyst (SCT [id number]) ALF GUEVARA 08/07/2019 [facility] Outpatient Encounter [id number] _MAPID:e atMmbsae96 08/07/2019 [facility] 15 Outpatient Encounter [id number] _MAPID:dkxKlatwq74 09/22/2019 [facility] Outpatient Encounter [id number] _MAPID:esnBldjqz51 ADRIEL HERNANDEZ 09/22/2019 [place] [facility] OFFICE/OUT PATIENT VISIT EST [id number] ICD-10 -CM B35.1 Chase eprdomo with Provider Comments: Chase Feldmanuium ADRIEL HERNANDEZ 09/23/2019 [facility] Outpatient Encounter [id number] _MAPID:fjuQukjnf40 10/07/2019 [facility] Outpatient Encounter [id number] _MAPID:tnyGukulg65 10/07/2019 [facility] Outpatient Encounter [id number] _MAPID:xysJvbewz95 10/08/2019 [facility] Outpatient Encounter [id number] _MAPID:e dkGchyat69 10/23/2019 [place] [address] Outpatient Encounter [id number] _MAPID:en jJgszsb59 11/11/2019 [facility] Outpatient Encounter [id number] ICD-10 -CM R09.02 Hypoxemia with Provider Comments: Hypoxemia SALOMON ESTEVEZ 11/11/2019 [place] [facility] Outpatient Encounter [id number] _MAPID :Re11/12/2019 [facility] Outpatient Encounter [id number] ICD-10 -CM Z71.89 Other specified counseling with Provider Comments: Other specified counseling SHANIQUA SCHMIDT 11/12/2019 [facility] Outpatient Encounter [id number] ICD-10 -CM R09.02 Hypoxemia with Provider Comments: SALOMON Sahni 11/13/2019 [facility] Outpatient Encounter [id number] ICD-10 -CM Z85.118 Personal history of malignant neoplasm of bronchus and lung with Provider Comments: History of malignant neoplasm of lung (SCT [id number]) DAYLIN WORLEY 11/14/2019 [facility] Outpatient Encounter [id number] ICD-10 -CM G47.33 Obstructive sleep apnea (adult) (pediatric) with Provider Comments: Obstructive Sleep Apnea (Adult) (Pediatric) SALOMON ESTEVEZ 11/18/2019 [facility] Outpatient Encounter [id number] _MAPID:en dReason3 RIO RAMIREZ JR 11/19/2019 [facility] Outpatient Encounter [id number] _MAPID :endReason2 11/27/2019 [facility] Outpatient Encounter [id number] ICD-10 -CM Z71.89 Other specified counseling with Provider Comments: Other specified counseling SHANIQUA SCHMIDT 11/27/2019 [facility] Procedures No Data Provided for This Section Social History Combined list of available smoking, tobacco, and other social history on record at Department of Defense and/or Veterans Affairs facilities. The included entrie s comply with the patient's data sharing authorizations. Social History Type Response Date Comment Source Tobacco smoking status [facility] VA-TOBACCO QUIT 15 YRS OR MORE 06/26/2018 [facility] History of tobacco use VA-TO BACCO FORMER USER 06/26/2018 [facility] [facility] History of tobacco use TOBAC CO USER OFFERED MEDS 11/23/2017 [facility] History of tobacco use CURRE NT TOBACCO USER 11/23/2017 [facility] History of tobacco use TOBAC CO CESSATION REFERRAL DECLINED 11/23/2017 [facility] History of tobacco use CURRE NT TOBACCO USER (READY TO QUIT) 11/23/2017 [facility] History of tobacco use NON-T OBACCO USER 06/27/2017 [facility] BL[facility] History of tobacco use NON-T OBACCO USER 06/27/2017 ART[facility] BLAS [facility] History of tobacco use NON-T OBACCO USER 12/18/2016 [facility] History of tobacco use NON-T OBACCO USER 01/06/2015 [facility] BL[facility] History of tobacco use NON-T OBACCO USER 11/23/2014 [facility] History of tobacco use NON-T OBACCO USER 10/26/2014 [facility] History of tobacco use NON-T OBACCO USER 10/14/2014 ARTUR BLAS [facility] History of tobacco use NON-T OBACCO USER 12/01/2005 [facility] History of tobacco use CURRE NT NON-SMOKER 12/01/2005 [facility] History of tobacco use LIFET BRANDI NON-SMOKER 12/01/2005 [facility] History of tobacco use LIFET BRANDI NON-TOBACCO USER 12/01/2005 [facility] History of tobacco use NON-S MOKER 12/01/2005 [facility] Assessment and Plan No Data Provided for This Section Plan of Care Date/Time Care Activity Care Activity Detail Facility 04/07/2020 AMBULATORY - NONE AMBULATORY - NONE [facility] 03/31/2020 AMBULATORY - MEDICI NE AMBULATORY - MEDICINE ARTUR BLAS [facility] 03/31/2020 AMBULATORY - MEDICI NE AMBULATORY - MEDICINE [facility] 03/31/2020 AMBULATORY - MEDICI NE AMBULATORY - MEDICINE ARTUR Luda Juan M [facility] 03/31/2020 AMBULATORY - MEDICI NE AMBULATORY - MEDICINE [facility] 01/27/2020 AMBULATORY - MEDICI NE AMBULATORY - MEDICINE [facility] 01/07/2020 AMBULATORY - MEDICI NE AMBULATORY - MEDICINE [facility] 01/01/2020 AMBULATORY - MEDICI NE AMBULATORY - MEDICINE [facility]uda [facility] 12/31/2019 AMBULATORY - MEDICI NE AMBULATORY - MEDICINE [facility] Mcgowan [facility] 12/31/2019 AMBULATORY - MEDICI NE AMBULATORY - MEDICINE ARTUR Mcgowan [facility] 12/31/2019 AMBULATORY - NONE AMBULATORY - NONE [facility] [place] [facility] 12/31/2019 Consult Order [facility] [id number] Cons Special Education Professional's Choice [facility] [place] [facility] 12/15/2019 Laboratory - Chemis try Order CREATININE (INCLUDES EGFR) GREEN TOP TUB E PLASMA SP RATUR Shu [facility] 11/17/2019 Laboratory - Chemis try Order CBC and DIFF 5 ML LAVENDER TOP BLOOD SP [facility]UR [place] [facility] 12/31/2019 Imaging - CT Scan O rder CT CHEST/THORAX W/CONT hx lung cancer ARTUR [place] [facility] 12/31/2019 Imaging - CT Scan O rder CT ABD and PELV W/CONTRAST hx lung cancer [facility] BLAS [facility] Family History No Data Provided for This Section Advance Directives No Data Provided for This Section Functional Status No Data Provided for This Section
--- OUTSIDE RECORDS SUMMARY | 2019-12-02 13:00 | XMS REPORT | Encounter Summary ---
Author Author Department [facility] HERBERTH kline Organization Department of [facility] Address [address] [place] [address] Phone Unavailable Care Team Providers Care Performance Architect Name Role Phone ADRIEL HERNANDEZ PCP Unavailable Insurance Providers: All historical and current No Data Provided for This Section Selected Encounter This section includes the information on record at [place] for the Encounter. Date/Time Encounter Type Encounter Description Reason Provider Source Aug 07, 2019 10:40 AM Outpatient Encounter GASTROENTEROLOGY [facility] 15 IHE Encounter Template Text not used by [place] Assessments - Encounter Diagnoses No Data Provided for This Section Plan of Treatment: Future Appointments (+ 6 months) and Future Tests (+/- 45 day s) The Plan of Treatment section includes future care activities for the patient fr om all [place] treatment facilities. This section includes future appointments and fu ture orders which are active, pending or scheduled. Future Appointments This section includes appointments that were scheduled t o occur 6 months from the date of the Encounter, up to a maximum of 20 appointme nts. The data comes from all [place] treatment facilities. Appointment Date/Time Appointment Type Appointment Facili ty Name Sep 23, 2019 11:15 AM AMBULATORY - NONE [facility] Sep 23, 2019 11:30 AM AMBULATORY - MEDICINE [facility] Oct 07, 2019 09:15 AM AMBULATORY - NONE [facility] T, [facility] 15 Dec 31, 2019 11:00 AM AMBULATORY - NONE [facility]UR BLAS [facility] Dec 31, 2019 01:15 PM AMBULATORY - MEDICINE ARTUR BLAS [facility] Dec 31, 2019 01:16 PM AMBULATORY - MEDICINE [facility] BLAS [facility] Jan 01, 2020 09:00 AM AMBULATORY - MEDICINE ARTUR BLAS [facility] Jan 07, 2020 12:00 PM AMBULATORY - MEDICINE [facility] Jan 27, 2020 01:00 PM AMBULATORY - MEDICINE [facility] Surgical Procedures: All associated to the [...] patient. The data comes from a ll [place] treatment facilities. It does not list Allergies/ADRs that were removed or entered in error. Some allergies/ADRs may be reported in [facility] Immunization section. Allergen Event Date Event Type Reaction(s) Severity Source BRIL[place]TA September 08, 2014 Propensity to adverse reactions to drug (diso rder) [facility] 15 [place] September 08, 2014 Propensity to adverse reactions to drug (diso [facility]der[facility] Medications: VA dispensed (-15 months) and Non-VA Documented (Obtained Outside V A) Section Date Range: 1) prescriptions processed by a VA pharmacy in the last [address] [facility], and 2) all medications recorded in the [place] medical record as "non-VA medic ations". Pharmacy terms refer to VA pharmacy's work on prescriptions. VA patient s are advised to take their medications as instructed by their health care team. The data comes from all [place] treatment facilities. Glossary of Pharmacy Terms:Active = A prescription that can be filled at the local [place] pharmacy.Active: On Hold = An active prescription that will not be filled until pharmacy resolves the issue.Active: Susp = An active prescription that is not scheduled to be filled yet.Clinic Order = A medication received during a visit to a [place] clinic or emergency department (currently not available).Discontinued = A prescription stopped by a [place] provider. It is no longer available to be filled. = A prescription which is too old to fill. This does not refer to the expiration date of the medication in the container. Non-VA = A medication that came from someplace other than a VA pharmacy. This may be a prescription from either the [place] or other providers that was filled outside the [place]. Or, it may be an over the [...] TEST BLOOD GLUCOSE 50 Dec 19, 2019 [id number] September 04, 2019 PAMELA RAMSEY CBGUILLERMO ACCU-CHEK CHARLES PLUS (GLUCOSE) TEST STRIP Discontinued USE 1 STRIP FOR TESTING TWO TIMES PER WEEK - DIRECTED TO TEST BLOOD GLUCOSE 50 Jul 25, 2019 [id number] Nov 12, 2018 [facility] ALBUTEROL SO4 90MCG/ACTUAT (CFC-F) INHL,ORAL,6.7GM Active INHALE 2 PUFFS BY ORAL INHALATION EVERY 4 HOURS NEEDED FOR BREATHING. SHAKE WELL. RINSE MOUTHPIECE FREQUENTLY TO PREVENT CLOGGING. USE NEEDED FOR SHORTNESS OF AIR/WHEEZING FOR BREATHING. SHAKE WELL. RINSE MOUTHPIECE FREQUENTLY TO PREVENT CLOGGING. USE NEEDED FOR SHORTNESS OF AIR/WHEEZING Dec 19, 2019 [id number] September 04, 2019 [facility] ALCOHOL PREP PAD Active USE 1 PAD ON SKIN BIW TO CLEAN AND DISINFECT THE SKIN 200 Sep 29, 2020 [id number] Sep 30, 2019 [facility]ICIO RANKIN [facility] ALCOHOL PREP PAD Discontinued USE 1 PAD ON SKIN BI W TO CLEAN AND DISINFECT THE SKIN 200 Dec 19, 2019 [id number] Jun 06, 2019 PAMELA RAMSEY ALCOHOL PREP PAD Discontinued USE 1 PAD ON SKIN BI W TO CLEAN AND DISINFECT THE SKIN 200 Jul 25, 2019 [id number] Nov 12, 2018 PAMELA RAMSEY ASCORBIC ACID 250MG TAB Non-VA TAKE ONE TABLET BY MOUTH ONCE A DAY Non-VA Documented by: SHANIQUA SCHMIDT nted at: [facility] ASPIRIN 25MG/DIPYRIDAMOLE 200MG CAP,SA Active T CHAPIN 1 CAPSULE BY MOUTH TWO TIMES A DAY - SWALLOW WHOLE. DO NOT CRUSH OR CHEW. FOR RECURRENT TIA/STROKE 180 Dec 19, 2019 [id number] Dec 20, 2018 PAMELA RAMSEY ASPIRIN 25MG/DIPYRIDAMOLE 200MG CAP,SA Discontinued T CHAPIN 1 CAPSULE BY MOUTH TWO TIMES A DAY - SWALLOW WHOLE. DO NOT CRUSH OR CHEW. FOR RECURRENT TIA/STROKE 180 Feb 06, 2019 [id number] Sep 28, 2018 ZACHARY GRECO [facility] ASPIRIN 81MG TAB,EC Non- VA TAKE ONE TABLET BY MOUTH ONCE A DAY Non-VA Documented by: PADMA LONG nted at: [facility] ATORVASTATIN CA 80MG TAB Active TAKE ONE TABLET BY MOUTH AT BEDTIME FOR CHOLESTEROL - REPORT ANY UNEXPLAINED MUSCLE PAIN/WEAKNESS TO YOUR PROVIDER 90 Dec 19, 2019 [id number] September 04, 2019 PAMELA RAMSEY ATORVASTATIN CA 80MG TAB Discontinued TAKE ONE TABLET BY MOUTH AT BEDTIME FOR CHOLESTEROL - REPORT ANY UNEXPLAINED MUSCLE PAIN/WEAKNESS TO YOUR PROVIDER 90 Dec 20, 2018 [id number] Nov 12, 2018 PAMELA RAMSEY BUDESONIDE 160MCG/FORMOTEROL FUM 4.5MCG/SPRAY INHL,ORAL,10.2 GM Active INHALE 2 PUFFS BY MOUTH TWO TIMES A DAY FOR BREATHING. SHAKE WELL. RINSE MOUTH AND SPIT AFTER EACH USE. 3 Apr 24, 2020 [id number] August 22, 2019 LISSA OATES [facility] CALCIUM/VITAMIN D TAB No n-VA TAKE BY MOUTH ONCE A DAY Non-V A Documented by: PADMA LONG nted at: [facility] CARBOXYMETHYLCELLULOSE NA 0.5% SOLN,OPH Active INSTILL ONE DROP IN BOTH EYES FOUR TIMES A DAY FOR DRY EYES 15 Feb 01, 2020 [id number] September 03 0 [facility] DICLOFENAC NA 1% GEL,TOP Discontinued APPLY 2 GRAMS A FFECTED AREA TWO TIMES A DAY NEEDED FOR PAIN AND INFLAMMATION. DO NOT EXCEED 16GM DAILY TO ANY AFFECTED JOINT OF LOWER EXTREMITIES. DO NOT EXCEED 8GM DAILY TO ANY AFFECTED JOINT OF UPPER EXTREMITES. DO NOT EXCEED TOTAL DOSE OF 32GM DAILY FOR ALL JOINTS. 100 Oct 31, 2018 [id number] Oct 06, 2018 ANAYELI KIRKPATRICK ARTUR BLAS [facility] DICLOFENAC NA 1% GEL,TOP APPLY 2 GRAMS A FFECTED AREA TWO TIMES A DAY NEEDED FOR PAIN AND INFLAMMATION. DO NOT EXCEED 16GM DAILY TO ANY AFFECTED JOINT OF LOWER EXTREMITIES. DO NOT EXCEED 8GM DAILY TO ANY AFFECTED JOINT OF UPPER EXTREMITES. DO NOT EXCEED TOTAL DOSE OF 32GM DAILY FOR ALL JOINTS. 100 Jan 17, 2019 [id number] Dec 20, 2018 PAMELA RAMSEY FLUTICASONE PROPIONATE 50MCG/SPRAY SOLN,NASAL,16GM Active INSTILL 1 SPRAY IN EACH NOSTRIL ONCE A DAY SHAKE GENTLY BEFORE USE! - MUST BE USED DIRECTED FOR 3 WEEKS TO PROVIDE BENEFIT. * NO EARLY REFILLS * 1UNIT = 30DAYS AT 4 PF/DAY OR 60DAYS AT 2PF/DAY 2 Dec 19, 2019 [id number] August 26, 2019 PAMELA RAMSEY KETOTIFEN 0.025% SOLN,OPH Active INSTILL 1 DROP IN BOTH EYES TWO TIMES A DAY FOR RELIEF OF ALLERGY SYMPTOMS IN EYE(S) 10 Feb 01, 2020 [id number] September 04, 2019 [facility] LANCET,SOFTCLIX Active USE LANCET BIW FOR TESTING BL OOD GLUCOSE DIRECTED Sep 29, 2020 [id number] Sep 30, 2019 MAURICIO RANKIN LANCET,SOFTCLIX Discontinued USE LANCET BIW FO R TESTING BLOOD GLUCOSE DIRECTED Dec 19, 2019 [id number] Jun 06, 2019 PAMELA RAMSEY LANCET,SOFTCLIX Discontinued USE LANCET BIW FO R TESTING BLOOD GLUCOSE DIRECTED Jul 25, 2019 [id number] Nov 12, 2018 PAMELA RAMSEY LISINOPRIL 40MG TAB Non- VA TAKE ONE-HALF TABLET BY MOUTH EVERY MORNING Non-VA Documented by: PAMELA RAMSEY nted at: [facility] LORATADINE/PSEUDOEPHEDRINE TAB,SA Non-VA TAKE BY MOUTH No n-VA Documented by: JUAN LANGume nted at: [facility] BLAS [facility] [...] ACID (REPLACES ACIPHEX) 180 Dec 19, 2019 [id number] August 26, 2019 PAMELA RAMSEY POLYETHYLENE GLYCOL [...] Non-VA Documented by: KATHERINE MATTume nted at: [facility] PREGABALIN 150MG CAP,ORAL Non-VA TAKE 1 CAPSULE BY MOUTH TWO TIMES A DAY Non-VA Docume nted by: PAMELA RAMSEY nted at: [facility] SEMAGLUTIDE INJ,SOLN Non -VA INJECT SUBCUTANEOUSLY EVERY WEEK Non-VA Documented by: ANAYELI KIRKPATRICK Docume nted at: ARTUR BLAS [facility] TERBINAFINE HCL 1% CREAM,TOP Active APPLY LIGHT LY TO AFFECTED AREA TWO TIMES A DAY FOR INFECTION 90 Sep 23, 2020 [id number] Sep 24, 2019 [facility] UREA 20% CREAM,TOP Active APPLY LIGHTLY (20%) TO AFFECTED AREA TWO TIMES A DAY NEEDED TO PROMOTE HEALING,RUB IN UNTIL COMPLETELY ABSORBED*FOR TOPICAL USE ONLY* APPLY TO BOTH FEET DIRECTED. 90 Sep 25, 2020 [id number] Sep 26, 2019 [facility] Problems (Conditions): All historical and current Section Date Range: From patient's date of to the date document was create d. This section includes a list of Problems (Conditions) know n to [facility] for the patient. It includes both active and inacti ve problems (conditions). The data comes from all [place] treatment facilities. Problem Status Problem Code Date of Onset Date of Resolution Comm ent(s) Provider Source Alcohol intake above recommended sensible limits Active 076105303 [facility] Allergic conjunctivitis Active 183769571 SAPELLONEDA [facility] Bilateral senile combined form cataracts of eyes Active [id number] 9108 SAPELLONEDA [facility] Bilateral tinnitus Active 6897082116290 CHASTITY JEAN [facility] Coronary arteriosclerosis Active 13012933 September 08, 2014 Entered By: PADMA LONG Comment: hx of ptca to RCA several yrs. agoSeptember 08, 2014 Entered By: PADMA LONG Comment: heart cath 09/01/14, neg. / previous stent to RCA,, via [place] HATCHER, JENNEY R [facility] Diabetes mellitus Active 17398419 PAMELA RAMSEY [facility] Disorder of pancreas Active 4728418 September 08, 2014 Entered By: PADMA LONG Comment: 2.5cm low density lseion in bodyMay 2014 Entered By: PADMA LONG Comment: question of communication with pancreatic ductMay 2014 Entered By: PADMA LONG Comment: favored to be cystic pancreatic cancerSeptember 08, 2014 Entered By: PADMA LONG Comment: per abdominal CT 09/01/14, via [place] FRAZIER,PADMA J [facility] Dry eyes Active 267088227 NEDA SHAW [facility] Gastro-esophageal reflux disease without esophagitis ( SNOMED CT 690534689) Active 553398157 ALF GUEVARA [facility] History of malignant neoplasm of lung Active 614708233 CHAPO BARRETO [facility] Hyperlipidemia (SNOMED CT 18713359) Active 41456450 PAMELA RAMSEY [facility] Lung mass Active 039919354 September 08, 2014 E ntered By: PADMA LONG Comment: 4.5 cm mass, post. segment right upper lobe.September 08, 2014 Entered By: PADMA LONG Comment: mild adenopathy in mediastinum and bilat. hilaMa2014 Entered By: PADMA LONG Comment: most likely related to lung cancerMa2014 Entered By: PADMA LONG Comment: per ct angio of chest with contrast 09/01/14,[place] 2014 Entered By: PADMA LONG Comment: per path report- mod. differentiated bronchogenic adenoca. 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 Active 71441252 KATHERINE MATT [facility] Obesity Active 561301205 SONG BULLOCK [facility] Obstructive sleep apnea syndrome (SNOMED CT 09335075) Active 143339 015 PHILIPPE DOUGLASS [facility] Pancreatic cyst Active 79805914 [facility] Papilloma of right eyelid Active [id number] NEDA SHAW [facility] Polyp of colon Active 09766076 Jan 23 16 Entered By: PADMA LONG Comment: c-scope 01/17/16, multiple benign colonic polypsJun 28, 2017 Entered By: PADMA LONG Comment: c-scope,06/25/17,[facility], three benign polyps- sigmoid colon, transverse colon,cecum. see path report cprs [facility]RES[facility] Pulmonary emphysema Active 30731874 0 BRIANA LESLYE [facility] Sensorineural hearing loss, bilateral Active 734753853 CHASTITY JEAN [facility] Snoring Active 38555213 Jayshree BULLOCKUBAIR [facility] Type 2 diabetes mellitus without complication Active 424936841 COLINNDEA Luda [facility] Environmental Allergies (ICD-9-CM 477.9) Inactive 477.9 Dec 18, 2017 PADMA LONG [facility] External hemorrhoids without mention of complication (ICD-9- CM 455.3) Inactive 455.3 Dec 18, 2017 PADMA LONG [facility] Impotence of organic origin (ICD-9-CM 607.84) Inactive 607.84 Dec 18, 2017 PADMA LONG [facility] Screening for Lipoid disorders (ICD-9-CM V77.91) Inactive V77.91 Jan 18, 2007 PADMA LONG [facility] Stye * (ICD-9-CM 373.11) Inactive 373.11 Dec 18, 201 8 Jan 18, 2007 Entered By: PADMA LONG Comment: bilat lower lids, chronic/recurrent PADMA LONG [facility] Tobacco Use Disorder, Continuous Inactive 305.1 [...]
--- OUTSIDE RECORDS SUMMARY | 2019-12-02 13:00 | XMS REPORT ---
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 Date/Time Encounter Type Encounter Description Reason Provider Source Mar 21, 2019 09:30 AM Outpatient Encounter SLEEP MEDICINE [facility] 15 IHE Encounter Template Text not [...] 10:00 AM AMBULATORY - NONE ARTUR BLAS [facility] Apr 03, 2019 10:00 AM AMBULATORY - SURGERY ARTUR CARRASQUILLO Apr 14, 2019 10:00 AM AMBULATORY - SURGERY [facility] Apr 28, 2019 11:00 AM AMBULATORY - NONE ARTUR BLAS [facility] Jun 25, 2019 11:30 AM AMBULATORY - NONE [facility]AS [facility] Jun 25, 2019 01:15 PM AMBULATORY - MEDICINE ARTUR BLAS [facility] Jul 23, 2019 11:00 [facility], 2019 08:00 AM AMBULATORY - NONE [facility]UR BLAS [facility] Aug 07, 2019 10:30 AM AMBULATORY - MEDICINE ARTUR BLAS [facility] Active, Pending, and Scheduled Orders This section [...] 10:33 AM Consult Order [facility] PULMONARY-[id number] Cons [employer] Commodity Manager's Choice [facility] Surgical Procedures: All associated to the [...] Range Comment Mar 21, 2019 08:55 AM [facility] HEMOGLOBIN A1C Specimen Type: BLOOD No [...] Adverse Reactions (ADR s) on record with [place] for the patient. The data comes from a ll [place] treatment facilities. It does not list Allergies/ADRs that were removed or entered in error. Some allergies/ADRs may be reported in t he Immunization section. Allergen Event Date Event Type Reaction(s) Severity Source [place] September 08, 2014 Propensity to adverse reactions to drug (diso rder) [facility] 15 PLA[place] September 08, 2014 Propensity to adverse reactions to drug (diso rder) [facility] Medications: VA dispensed (-15 months) and Non-VA Documented (Obtained Outside V A) Section Date Range: 1) prescriptions processed by a [facility] pharmacy in the last 15 m [facility], and 2) all medications recorded in the [place] medical record as "non-VA medic ations". Pharmacy terms refer to [place] pharmacy's work on prescriptions. VA patient s [...] TEST BLOOD GLUCOSE 50 Dec 19, 2019 [id number] September 04, 2019 PAMELA RAMSEY [facility] ACCU-CHEK CHARLES PLUS (GLUCOSE) TEST STRIP Discontinued USE 1 STRIP FOR TESTING TWO TIMES PER WEEK - DIRECTED TO TEST BLOOD GLUCOSE 50 Jul 25, 2019 [id number] Nov 12, 2018 PAMELA RAMSEY ALBUTEROL SO4 90MCG/ACTUAT (CFC-F) INHL,ORAL,6.7GM Active INHALE 2 PUFFS BY ORAL INHALATION EVERY 4 HOURS NEEDED FOR BREATHING. SHAKE WELL. RINSE MOUTHPIECE FREQUENTLY TO PREVENT CLOGGING. USE NEEDED FOR SHORTNESS OF AIR/WHEEZING FOR BREATHING. SHAKE WELL. RINSE MOUTHPIECE FREQUENTLY TO PREVENT CLOGGING. USE NEEDED FOR SHORTNESS OF AIR/WHEEZING 1 Dec 19, 2019 [id number] September 04, 2019 PAMELA RAMSEY ALCOHOL PREP PAD Active USE 1 PAD ON SKIN BIW TO CLEAN AND DISINFECT THE SKIN 200 Sep 29, 2020 [id number] Sep 30, 2019 MAURICIO RANKIN [facility] ALCOHOL PREP PAD Discontinued USE 1 PAD ON SKIN BI W TO CLEAN AND DISINFECT THE SKIN 200 Dec 19, 2019 [id number] Jun 06, 2019 PAMELA RAMSEY CBGUILLERMO ALCOHOL PREP PAD Discontinued USE 1 PAD ON SKIN BI W TO CLEAN AND DISINFECT THE SKIN 200 Jul 25, 2019 [id number] Nov 12, 2018 PAMELA RAMSEY ASCORBIC ACID 250MG TAB Non-VA TAKE ONE TABLET BY MOUTH ONCE A DAY Non-VA Documented by: SHANIQUA SCHMIDT nted at: [facility] ASPIRIN 25MG/DIPYRIDAMOLE 200MG CAP,SA Active T CHAPIN 1 CAPSULE BY MOUTH TWO TIMES A DAY - SWALLOW WHOLE. DO NOT CRUSH OR CHEW. FOR RECURRENT TIA/STROKE 180 Dec 19, 2019 [id number] Dec 20, 2018 PAMELA RAMSEY ASPIRIN 25MG/DIPYRIDAMOLE 200MG CAP,SA Discontinued T CHAPIN 1 CAPSULE BY MOUTH TWO TIMES A DAY - SWALLOW WHOLE. DO NOT CRUSH OR CHEW. FOR RECURRENT TIA/STROKE 180 Feb 06, 2019 [id number] Sep 28, 2018 ZACHARY GRECO [facility] ASPIRIN 81MG TAB,EC Non- VA TAKE ONE TABLET BY MOUTH ONCE A DAY Non-VA Documented by: PADMA LONG nted at: [facility] ATORVASTATIN CA 80MG TAB Active TAKE ONE TABLET BY MOUTH AT BEDTIME FOR CHOLESTEROL - REPORT ANY UNEXPLAINED MUSCLE PAIN/WEAKNESS TO YOUR PROVIDER 90 Dec 19, 2019 [id number] September 04, 2019 PAMELA RAMSEY ATORVASTATIN CA 80MG TAB Discontinued TAKE ONE TABLET BY MOUTH AT BEDTIME FOR CHOLESTEROL - REPORT ANY UNEXPLAINED MUSCLE PAIN/WEAKNESS TO YOUR PROVIDER 90 Dec 20, 2018 [id number] Nov 12, 2018 PAMELA RAMSEY BUDESONIDE 160MCG/FORMOTEROL FUM 4.5MCG/SPRAY INHL,ORAL,10.2 GM Active INHALE 2 PUFFS BY MOUTH TWO TIMES A DAY FOR BREATHING. SHAKE WELL. RINSE MOUTH AND SPIT AFTER EACH USE. 3 Apr 24, 2020 [id number] August 22, 2019 LISSA OATES [facility] CALCIUM/VITAMIN D TAB No n-VA TAKE BY MOUTH ONCE A DAY Non-V A Documented by: PADMA LONG nted at: [facility] CARBOXYMETHYLCELLULOSE NA 0.5% SOLN,OPH Active INSTILL ONE DROP IN BOTH EYES FOUR TIMES A DAY FOR DRY EYES 15 Feb 01, 2020 [id number] September 03 0 N[facility]A SHAW [facility] DICLOFENAC NA 1% GEL,TOP Discontinued APPLY 2 GRAMS A FFECTED AREA TWO TIMES A DAY NEEDED FOR PAIN AND INFLAMMATION. DO NOT EXCEED 16GM DAILY TO ANY AFFECTED JOINT OF LOWER EXTREMITIES. DO NOT EXCEED 8GM DAILY TO ANY AFFECTED JOINT OF UPPER EXTREMITES. DO NOT EXCEED TOTAL DOSE OF 32GM DAILY FOR ALL JOINTS. 100 Oct 31, 2018 [id number] Oct 06, 2018 ANAYELI KIRKPATRICK [facility] DICLOFENAC NA 1% GEL,TOP APPLY 2 GRAMS A FFECTED AREA TWO TIMES A DAY NEEDED FOR PAIN AND INFLAMMATION. DO NOT EXCEED 16GM DAILY TO ANY AFFECTED JOINT OF LOWER EXTREMITIES. DO NOT EXCEED 8GM DAILY TO ANY AFFECTED JOINT OF UPPER EXTREMITES. DO NOT EXCEED TOTAL DOSE OF 32GM DAILY FOR ALL JOINTS. 100 Jan 17, 2019 [id number] Dec 20, 2018 PAMELA RAMSEY FLUTICASONE PROPIONATE 50MCG/SPRAY SOLN,NASAL,16GM Active INSTILL 1 SPRAY IN EACH NOSTRIL ONCE A DAY SHAKE GENTLY BEFORE USE! - MUST BE USED DIRECTED FOR 3 WEEKS TO PROVIDE BENEFIT. * NO EARLY REFILLS * 1UNIT = 30DAYS AT 4 PF/DAY OR 60DAYS AT 2PF/DAY 2 Dec 19, 2019 [id number] August 26, 2019 PAMELA RAMSEY KETOTIFEN 0.025% SOLN,OPH Active INSTILL 1 DROP IN BOTH EYES TWO TIMES A DAY FOR RELIEF OF ALLERGY SYMPTOMS IN EYE(S) Feb 01, 2020 [id number] September 04, 2019 [facility] SH[facility] LANCET,SOFTCLIX Active USE LANCET BIW FOR TESTING BL OOD GLUCOSE DIRECTED 100 Sep 29, 2020 [id number] Sep 30, 2019 [facility]URICIO RANKIN [facility] LANCET,SOFTCLIX Discontinued USE LANCET BIW FO R TESTING BLOOD GLUCOSE DIRECTED 100 Dec 19, 2019 [id number] Jun 06, 2019 PAMELA RAMSEY LANCET,SOFTCLIX Discontinued USE LANCET BIW FO R TESTING BLOOD GLUCOSE DIRECTED Jul 25, 2019 [id number] Nov 12, 2018 PAMELA RAMSEY LISINOPRIL 40MG TAB Non- VA TAKE ONE-HALF TABLET BY MOUTH EVERY MORNING Non-VA Documented by: PAMELA RAMSEY nted at: [facility] LORATADINE/PSEUDOEPHEDRINE TAB,SA Non-VA TAKE BY MOUTH No n-VA Documented by: JUAN LANGume nted at: ARTUR BLAS [facility] MAGNESIUM OXIDE 400MG TAB Non-VA TAKE [...] ACID (REPLACES ACIPHEX) 180 Dec 19, 2019 [id number] August 26, 2019 PAMELA RAMSEY POLYETHYLENE GLYCOL [...] Documented by: KATHERINE MATT Docume nted at: [facility] PREGABALIN 150MG CAP,ORAL Non-VA TAKE 1 CAPSULE BY MOUTH TWO TIMES A DAY Non-VA Docume nted by: PAMELA RAMSEY Docume nted at: [facility] SEMAGLUTIDE INJ,SOLN Non -VA INJECT SUBCUTANEOUSLY EVERY WEEK Non-VA Documented by: ANAYELI KIRKPATRICK Docume nted at: [facility] TERBINAFINE HCL 1% CREAM,TOP Active APPLY LIGHT LY TO AFFECTED AREA TWO TIMES A DAY FOR INFECTION Sep 23, 2020 [id number] Sep 24, 2019 ADRIEL HERNANDEZ UREA 20% CREAM,TOP Active APPLY LIGHTLY (20%) TO AFFECTED AREA TWO TIMES A DAY NEEDED TO PROMOTE HEALING,RUB IN UNTIL COMPLETELY ABSORBED*FOR TOPICAL USE ONLY* APPLY TO BOTH FEET DIRECTED. Sep 25, 2020 [id number] Sep 26, 2019 ADRIEL HERNANDEZ Problems (Conditions): [...] Alcohol intake above recommended sensible limits Active 529225165 [facility] Allergic conjunctivitis Active 990494263 N[facility] SHAW [facility] Bilateral senile combined form cataracts of eyes Active [id number] 9108 [facility] Bilateral tinnitus Active [id number] [facility] Coronary arteriosclerosis Active 17787132 September 08, 2014 Entered By: PADMA LONG Comment: hx of ptca to RCA several yrs. agoSeptember 08, 2014 Entered By: PADMA LONG Comment: heart cath 09/01/14, neg. / previous stent to RCA,, via abida meneses ks HATCHER, JENNEY R [facility] Diabetes mellitus Active 37870725 PAMELA RAMSEY [facility] Disorder of pancreas Active 1663739 September 08, 2014 Entered By: PADMA LONG Comment: 2.5cm low density lseion in bodyMay 2014 Entered By: PADMA LONG Comment: question of communication with pancreatic ductMa2014 Entered By: PADMA LONG Comment: favored to be cystic pancreatic cancerSeptember 08, 2014 Entered By: PADMA LONG Comment: per abdominal CT 09/01/14, via abida meneses ks FRAZIER, JAY J [facility] Dry eyes Active 433522031 N[facility] SHAW [facility] Gastro-esophageal reflux disease without esophagitis ( SNOMED CT 707581736) Active 964437558 ALF GUEVARA [facility] History of malignant neoplasm of lung Active 381681443 CHAPO BARRETO [facility] Hyperlipidemia (SNOMED CT 81633830) Active 39095662 PAMELA RAMSEY [facility] Lung mass Active 495007133 September 08, 2014 E ntered By: PADMA LONG Comment: 4.5 cm mass, post. segment right upper lobe.September 08, 2014 Entered By: PADMA LONG Comment: mild adenopathy in mediastinum and bilat. hilaMa2014 Entered By: PADMA LONG Comment: most likely related to lung cancerSeptember 08, 2014 Entered By: PADMA LONG Comment: per ct angio of chest with contrast 09/01/14,via abida menesesriJun 2014 Entered By: PADMA LONG Comment: per path report- mod. differentiated bronchogenic adenoca. 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 Active 18394576 KATHERINE MATT [facility] Obesity Active 659764122 S[facility] BULLOCK [facility] Obstructive sleep apnea syndrome (SNOMED CT 00807821) Active 632793 015 PH[place] D[place]ASS [facility] Pancreatic cyst Active 62345876 JAYLENE GUEVARA [facility] Papilloma of right eyelid Active [id number] NEDA SHAW [facility] Polyp of colon Active 93478795 Jan 23 Entered By: PADMA LONG Comment: c-scope 01/17/16, multiple benign colonic polypsJun 28, 2017 Entered By: PADMA LONG Comment: c-scope,06/25/17,[facility] thumb region, three benign polyps- sigmoid colon, transverse colon,cecum. see path report cprs SHARRON TORRES [facility] Pulmonary emphysema Active 24264937 0 BRIANA GAVIN [facility] Sensorineural hearing loss, bilateral Active 813811128 CHASTITY JEAN [facility] Snoring Active 31879625 S[place] BULLOCK [facility] Type 2 diabetes mellitus without complication Active 642334192 NEDA SHAW [facility] Environmental Allergies (ICD-9-CM 477.9) Inactive 477.9 Dec 18, 2017 PADMA LONG [facility] External hemorrhoids without mention of complication (ICD-9- CM 455.3) Inactive 455.3 Dec 18, 2017 PADMA LONG [facility] Impotence of organic origin (ICD-9-CM 607.84) Inactive 607.84 Dec 18, 2017 PADMA LONG [facility] Screening for Lipoid disorders (ICD-9-CM V77.91) Inactive V77.91 Jan 18, 2007 PADMA LONG [facility] Stye * (ICD-9-CM 373.11) Inactive [...] the Encounter. The data comes from all [facility] facilities. Date/Time Pathology Report Provider Source [...] 11:11) Microscopic examination is performed. DIAGNOSIS: Specimen: [id number] Spec Type: SURGICAL Abdulkadir: 04/03/19 Rec: 04/03/19-1241 PATHOLOGIC DIAGNOSIS Skin lesion, right upper cheek, biopsy: 1. Seborrheic keratosis, not involving resection margins. 2. Solar elastosis. Skin lesion, right lower mid margin, biopsy: 1. Seborrheic keratosis, with tumor at tissue edge/margin, but with benign features. LL COPIES TO: KATHERINE MATT [facility] PATHOLOGIST CODES: [id number]/2 at 1235 The gross and microscopic examinations and interpretation were performed at [facility] Department of Pathology, [address] [place] [id number]. Slides and paraffin blocks are on file at [facility]. =--=--=--=--=--=--=--=--=--=--=--=--=--=--=--=--=--=--=--=--=--=--=--=--=--=-- Performing Laboratory: Surgical Pathology Report Performed By: [facility] [CLIA# [id number]] [address] [place] [id number] [address] [facility] 15 Encounter Notes: All associated encounter notes No Data Provided for This Section
--- OUTSIDE RECORDS SUMMARY | 2019-12-02 13:01 | XMS REPORT | Encounter Summary ---
Author Author Department [facility] HERBERTH kline Organization Department of [facility] Address [address] [place] [address] Phone Unavailable Care Team Providers Care Bilingual Sales Assistant Name Role Phone ADRIEL HERNANDEZ PCP Unavailable Insurance Providers: All historical and current No Data Provided for This Section Selected Encounter This section includes the information on record at MD for the Encounter. Date/Time Encounter Type Encounter Description Reason Provider Source Mar 21, 2019 10:00 AM Outpatient Encounter SLEEP MEDICINE [facility] 15 IHE Encounter Template Text not used by MD Assessments - Encounter Diagnoses No Data Provided [...] 10:00 AM AMBULATORY - NONE [facility] BLAS [facility] Apr 03, 2019 10:00 AM AMBULATORY - SURGERY ARTUR CARRASQUILLO Apr 14, 2019 10:00 AM AMBULATORY - SURGERY [facility] Apr 28, 2019 11:00 AM AMBULATORY - NONE ARTUR BLAS [facility] Jun 25, 2019 11:30 AM AMBULATORY - NONE ARTUR BLAS [facility] Jun 25, 2019 01:15 PM AMBULATORY - MEDICINE ARTUR BLAS [facility] Jul 23, 2019 11:00 AM [facility] Jul 25, 2019 08:00 AM AMBULATORY - NONE ARTUR BLAS [facility] Aug 07, 2019 10:30 AM AMBULATORY - MEDICINE ARTUR BLAS V [facility] Active, Pending, and Scheduled Orders This section [...] the Encounter. The data comes from all MD treatment facilities. Test Date/Time Test Type Test Details Facility Name Apr 01, 2019 10:33 AM Consult Order [facility][id number] Cons Family Service Counselor's Choice [facility] Surgical Procedures: All associated to the encounter [...] Range Comment Mar 21, 2019 08:55 AM [facility] HEMOGLOBIN A1C Specimen Type: BLOOD [...] Adverse Reactions (ADR s) on record with MD for the patient. The data comes from a ll MD treatment facilities. It does not list Allergies/ADRs that were removed or entered in error. Some allergies/ADRs may be reported in t he Immunization section. Allergen Event Date Event Type Reaction(s) Severity Source [place] September 08, 2014 Propensity to adverse reactions to drug (diso rder) [facility] 15 PLAVIX September 08, 2014 Propensity to adverse reactions to drug (diso rder) [facility] Medications: VA dispensed (-15 months) and Non-VA Documented (Obtained Outside V A) Section Date Range: 1) prescriptions processed by a VA pharmacy in the last 15 m [facility], and 2) all medications recorded in the MD medical record as "non-VA medic ations". Pharmacy terms refer to MD pharmacy's work on prescriptions. VA patient s [...] TEST BLOOD GLUCOSE 50 Dec 19, 2019 [id number] September 04, 2019 PAMELA RAMSEY [facility] ACCU-CHEK CHARLES PLUS (GLUCOSE) TEST STRIP Discontinued USE 1 STRIP FOR TESTING TWO TIMES PER WEEK - DIRECTED TO TEST BLOOD GLUCOSE 50 Jul 25, 2019 [id number] Nov 12, 2018 PAMELA RAMSEY ALBUTEROL SO4 90MCG/ACTUAT (CFC-F) INHL,ORAL,6.7GM Active INHALE 2 PUFFS BY ORAL INHALATION EVERY 4 HOURS NEEDED FOR BREATHING. SHAKE WELL. RINSE MOUTHPIECE FREQUENTLY TO PREVENT CLOGGING. USE NEEDED FOR SHORTNESS OF AIR/WHEEZING FOR BREATHING. SHAKE WELL. RINSE MOUTHPIECE FREQUENTLY TO PREVENT CLOGGING. USE NEEDED FOR SHORTNESS OF AIR/WHEEZING 1 Dec 19, 2019 [id number] September 04, 2019 PAMELA RAMSEY ALCOHOL PREP PAD Active USE 1 PAD ON SKIN BIW TO CLEAN AND DISINFECT THE SKIN 200 Sep 29, 2020 [id number] Sep 30, 2019 MAURICIO RANKIN [facility] ALCOHOL PREP PAD Discontinued USE 1 PAD ON SKIN BI W TO CLEAN AND DISINFECT THE SKIN 200 Dec 19, 2019 [id number] Jun 06, 2019 PAMELA RAMSEY CBGUILLERMO ALCOHOL PREP PAD Discontinued USE 1 PAD ON SKIN BI W TO CLEAN AND DISINFECT THE SKIN 200 Jul 25, 2019 [id number] Nov 12, 2018 PAMELA RAMSEY ASCORBIC ACID 250MG TAB Non-VA TAKE ONE TABLET BY MOUTH ONCE A DAY Non-VA Documented by: SHANIQUA SCHMIDT nted at: [facility] ASPIRIN 25MG/DIPYRIDAMOLE 200MG CAP,SA Active T CHAPIN 1 CAPSULE BY MOUTH TWO TIMES A DAY - SWALLOW WHOLE. DO NOT CRUSH OR CHEW. FOR RECURRENT TIA/STROKE 180 Dec 19, 2019 [id number] Dec 20, 2018 PAMELA RAMSEY ASPIRIN 25MG/DIPYRIDAMOLE 200MG CAP,SA Discontinued T CHAPIN 1 CAPSULE BY MOUTH TWO TIMES A DAY - SWALLOW WHOLE. DO NOT CRUSH OR CHEW. FOR RECURRENT TIA/STROKE 180 Feb 06, 2019 [id number] Sep 28, 2018 ZACHARY GRECO [facility] ASPIRIN 81MG TAB,EC Non- VA TAKE ONE TABLET BY MOUTH ONCE A DAY Non-VA Documented by: PADMA LONG nted at: [facility] ATORVASTATIN CA 80MG TAB Active TAKE ONE TABLET BY MOUTH AT BEDTIME FOR CHOLESTEROL - REPORT ANY UNEXPLAINED MUSCLE PAIN/WEAKNESS TO YOUR PROVIDER 90 Dec 19, 2019 [id number] September 04, 2019 PAMELA RAMSEY ATORVASTATIN CA 80MG TAB Discontinued TAKE ONE TABLET BY MOUTH AT BEDTIME FOR CHOLESTEROL - REPORT ANY UNEXPLAINED MUSCLE PAIN/WEAKNESS TO YOUR PROVIDER 90 Dec 20, 2018 [id number] Nov 12, 2018 PAMELA RAMSEY BUDESONIDE 160MCG/FORMOTEROL FUM 4.5MCG/SPRAY INHL,ORAL,10.2 GM Active INHALE 2 PUFFS BY MOUTH TWO TIMES A DAY FOR BREATHING. SHAKE WELL. RINSE MOUTH AND SPIT AFTER EACH USE. 3 Apr 24, 2020 [id number] August 22, [address] [facility] CALCIUM/VITAMIN D TAB No n-VA TAKE BY MOUTH ONCE A DAY Non-V A Documented by: PADMA LONG nted at: [facility] CARBOXYMETHYLCELLULOSE NA 0.5% SOLN,OPH Active INSTILL ONE DROP IN BOTH EYES FOUR TIMES A DAY FOR DRY EYES 15 Feb 01, 2020 [id number] September 03 0 NEDA SHAW [facility] DICLOFENAC NA 1% GEL,TOP Discontinued APPLY 2 GRAMS A FFECTED AREA TWO TIMES A DAY NEEDED FOR PAIN AND INFLAMMATION. DO NOT EXCEED 16GM DAILY TO ANY AFFECTED JOINT OF LOWER EXTREMITIES. DO NOT EXCEED 8GM DAILY TO ANY AFFECTED JOINT OF UPPER EXTREMITES. DO NOT EXCEED TOTAL DOSE OF 32GM DAILY FOR ALL JOINTS. 100 Oct 31, 2018 [id number] Oct 06, [address] [facility] [...] FOR ALL JOINTS. 100 Jan 17, 2019 [id number] Dec 20, 2018 PAMELA RAMSEY FLUTICASONE PROPIONATE 50MCG/SPRAY SOLN,NASAL,16GM Active INSTILL 1 SPRAY IN EACH NOSTRIL ONCE A DAY SHAKE GENTLY BEFORE USE! - MUST BE USED DIRECTED FOR 3 WEEKS TO PROVIDE BENEFIT. * NO EARLY REFILLS * 1UNIT = 30DAYS AT 4 PF/DAY OR 60DAYS AT 2PF/DAY 2 Dec 19, 2019 [id number] August 26, 2019 PAMELA RAMSEY KETOTIFEN 0.025% SOLN,OPH Active INSTILL 1 DROP IN BOTH EYES TWO TIMES A DAY FOR RELIEF OF ALLERGY SYMPTOMS IN EYE(S) Feb 01, 2020 [id number] September 04, 2019 NEDA SHAW [facility] LANCET,SOFTCLIX Active USE LANCET BIW FOR TESTING BL OOD GLUCOSE DIRECTED 100 Sep 29, 2020 [id number] Sep 30, 2019 [facility]ICIO RANKIN [facility] LANCET,SOFTCLIX Discontinued USE LANCET BIW FO R TESTING BLOOD GLUCOSE DIRECTED 100 Dec 19, 2019 [id number] Jun 06, 2019 PAMELA RAMSEY LANCET,SOFTCLIX Discontinued USE LANCET BIW FO R TESTING BLOOD GLUCOSE DIRECTED Jul 25, 2019 [id number] Nov 12, 2018 PAMELA RAMSEY LISINOPRIL 40MG TAB Non- VA TAKE ONE-HALF TABLET BY MOUTH EVERY MORNING Non-VA Documented by: PAMELA RAMSEY nted at: [facility] LORATADINE/PSEUDOEPHEDRINE TAB,SA Non-VA TAKE BY MOUTH No n-VA Documented by: JUAN LANGume nted at: [facility] [...] ACID (REPLACES ACIPHEX) 180 Dec 19, 2019 [id number] August 26, 2019 PAMELA RAMSEY POLYETHYLENE GLYCOL [...] Documented by: KATHERINE MATT Docume nted at: [facility] PREGABALIN 150MG CAP,ORAL Non-VA TAKE 1 CAPSULE BY MOUTH TWO TIMES A DAY Non-VA Docume nted by: PAMELA RAMSEY Docume nted at: [facility] SEMAGLUTIDE INJ,SOLN Non -VA INJECT SUBCUTANEOUSLY EVERY WEEK Non-VA Documented by: ANAYELI KIRKPATRICK Docume nted at: [facility] TERBINAFINE HCL 1% CREAM,TOP Active APPLY LIGHT LY TO AFFECTED AREA TWO TIMES A DAY FOR INFECTION Sep 23, 2020 [id number] Sep 24, 2019 ADRIEL HERNANDEZ UREA 20% CREAM,TOP Active APPLY LIGHTLY (20%) TO AFFECTED AREA TWO TIMES A DAY NEEDED TO PROMOTE HEALING,RUB IN UNTIL COMPLETELY ABSORBED*FOR TOPICAL USE ONLY* APPLY TO BOTH FEET DIRECTED. Sep 25, 2020 [id number] Sep 26, 2019 ADRIEL HERNANDEZ Problems (Conditions): [...] Alcohol intake above recommended sensible limits Active 629282640 [facility] Allergic conjunctivitis Active 702943912 NEDA SHAW [facility] Bilateral senile combined form cataracts of eyes Active 45519668995 9108 [facility]AW [facility] Bilateral tinnitus Active [id number] [facility] Coronary arteriosclerosis Active 28327142 September 08, 2014 Entered By: PADMA LONG Comment: hx of ptca to RCA several yrs. agoSeptember 08, 2014 Entered By: PADMA LONG Comment: heart cath 09/01/14, neg. / previous stent to RCA,, via abida meneses ks HATCHER, JENNEY R [facility] Diabetes mellitus Active 02781694 PAMELA RAMSEY [facility] Disorder of pancreas Active 9685747 September 08, 2014 Entered By: PADMA LONG Comment: 2.5cm low density lseion in bodyMay 2014 Entered By: PADMA LONG Comment: question of communication with pancreatic ductMa2014 Entered By: PADMA LONG Comment: favored to be cystic pancreatic cancerSeptember 08, 2014 Entered By: PADMA LONG Comment: per abdominal CT 09/01/14, via abida meneses ks FRAZIER, JAY J [facility] Dry eyes Active 007956258 NEDA SHAW [facility] Gastro-esophageal reflux disease without esophagitis ( SNOMED CT 238165298) Active 132270223 ALF GUEVARA [facility] History of malignant neoplasm of lung Active 382771259 CHAPO BARRETO [facility] Hyperlipidemia (SNOMED CT 05300244) Active 89330842 PAMELA RAMSEY [facility] Lung mass Active 847643901 September 08, 2014 E ntered By: PADMA LONG Comment: 4.5 cm mass, post. segment right upper lobe.September 08, 2014 Entered By: PADMA LONG Comment: mild adenopathy in mediastinum and bilat. hilaMa2014 Entered By: PADMA LONG Comment: most likely related to lung cancerSeptember 08, 2014 Entered By: PADMA LONG Comment: per ct angio of chest with contrast 09/01/14,via abida menesesilJun 2014 Entered By: PADMA LONG Comment: per path report- mod. differentiated bronchogenic adenoca. 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 Active 25586792 KATHERINE MATT [facility] Obesity Active 789070802 SONG BULLOCK [facility] Obstructive sleep apnea syndrome (SNOMED CT 80508440) Active 872521 015 PHILIPPE DOUGLASS [facility] Pancreatic cyst Active 33699577 JAYLENE GUEVARA [facility] Papilloma of right eyelid Active 614882537120596 NEDA SHAW [facility] Polyp of colon Active 66164871 Jan 23 Entered By: PADMA LONG Comment: c-scope 01/17/16, multiple benign colonic polypsJun 28, 2017 Entered By: PADMA LONG Comment: c-scope,06/25/17,[facility], three benign polyps- sigmoid colon, transverse colon,cecum. see path report cprs SHARRON TORRES [facility] Pulmonary emphysema Active 76481007 0 BRIANA GAVIN [facility] Sensorineural hearing loss, bilateral Active 043342154 CHASTITY JEAN [facility] Snoring Active 13355623 SONG BULLOCK [facility] Type 2 diabetes mellitus without complication Active 542366795 NEDA SHAW [facility] Environmental Allergies (ICD-9-CM 477.9) Inactive 477.9 Dec 18, 2017 PADMA LONG [facility] External hemorrhoids without mention of complication (ICD-9- CM 455.3) Inactive 455.3 Dec 18, 2017 PADMA LONG [facility] Impotence of organic origin (ICD-9-CM 607.84) Inactive 607.84 Dec 18, 2017 PADMA LONG [facility] Screening for Lipoid disorders (ICD-9-CM V77.91) Inactive V77.91 Jan 18, 2007 PADMA LONG [facility] Stye * (ICD-9-CM 373.11) Inactive 373.11 Dec 18, 201 8 Jan 18, 2007 Entered By: PADMA LONG Comment: bilat lower lids, chronic/recurrent PADMA LONG [facility] Tobacco Use Disorder, [...] Encounter. The data comes from all [facility] facilities. Date/Time Pathology Report Provider Source Apr [...] 11:11) Microscopic examination is performed. DIAGNOSIS: Specimen: [id number] Spec Type: SURGICAL Abdulkadir: 04/03/19 Rec: 04/03/19-1241 PATHOLOGIC DIAGNOSIS Skin lesion, right upper cheek, biopsy: 1. Seborrheic keratosis, not involving resection margins. 2. Solar elastosis. Skin lesion, right lower mid margin, biopsy: 1. Seborrheic keratosis, with tumor at tissue edge/margin, but with benign features. LL COPIES TO: KATHERINE MATT [facility] PATHOLOGIST CODES: 57737/2 at 1235 The gross and microscopic examinations and interpretation were performed at [facility] Department of Pathology, [address] [place] [id number]. Slides and paraffin blocks are on file at [facility]. =--=--=--=--=--=--=--=--=--=--=--=--=--=--=--=--=--=--=--=--=--=--=--=--=--=-- Performing Laboratory: Surgical Pathology Report Performed By: [facility] [CLIA# [id number]] [address] [place] [id number] [address] [facility] 15 Encounter Notes: All associated encounter notes No Data Provided for This Section
--- OUTSIDE RECORDS SUMMARY | 2019-12-02 13:02 | XMS REPORT | Encounter Summary ---
Author Author Department [facility] HERBERTH kline Organization Department of [facility] Address [address] [place] [address] Phone Unavailable Care Team Providers Care Piano Machine Operator Name Role Phone ADRIEL HERNANDEZ PCP Unavailable Insurance Providers: All historical and current No Data Provided for This Section Selected Encounter This section includes the [place] on [place] at [place] for the Encounter. Date/Time Encounter Type Encounter Description Reason Provider Source Mar 26, 2019 10:00 AM Outpatient Encounter MOVE! [facility] 15 IHE Encounter Template Text not [...] AMBULATORY - SURGERY ARTUR BLAS [facility] Apr 14, 2019 10:00 AM [facility] Apr 28, 2019 11:00 AM AMBULATORY - NONE [facility] Jun 25, 2019 11:30 AM AMBULATORY - NONE [facility] Jun 25, 2019 01:15 PM AMBULATORY - MEDICINE ARTUR BLAS [facility] Jul 23, 2019 11:00 AM [...] the Encounter. The data comes from all [place] treatment facilities. 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 The data comes from a ll [place] treatment facilities. It does not list Allergies/ADRs that were removed or entered in error. Some allergies/ADRs may be reported in t he Immunization section. Allergen Event Date Event Type Reaction(s) Severity Source [place] September 08, 2014 Propensity to adverse reactions to drug (diso rder) [facility] 15 [place] September 08, 2014 Propensity to adverse reactions to drug (diso rder) [facility] Medications: VA dispensed (-15 months) and Non-VA Documented (Obtained Outside V A) Section Date Range: 1) prescriptions processed by a VA pharmacy in the last 15 m [facility], and 2) all medications recorded in the [place] medical record as "non-VA medic ations". Pharmacy terms refer to [place] pharmacy's work on prescriptions. VA patient s [...] TEST BLOOD GLUCOSE 50 Dec 19, 2019 [id number] September 04, 2019 PAMELA RAMSEY ACCU-CHEK CHARLES PLUS (GLUCOSE) TEST STRIP Discontinued USE 1 STRIP FOR TESTING TWO TIMES PER WEEK - DIRECTED TO TEST BLOOD GLUCOSE 50 Jul 25, 2019 [id number] Nov 12, 2018 PAMELA RAMSEY CBGUILLERMO ALBUTEROL SO4 90MCG/ACTUAT (CFC-F) INHL,ORAL,6.7GM Active INHALE 2 PUFFS BY ORAL INHALATION EVERY 4 HOURS NEEDED FOR BREATHING. SHAKE WELL. RINSE MOUTHPIECE FREQUENTLY TO PREVENT CLOGGING. USE NEEDED FOR SHORTNESS OF AIR/WHEEZING FOR BREATHING. SHAKE WELL. RINSE MOUTHPIECE FREQUENTLY TO PREVENT CLOGGING. USE NEEDED FOR SHORTNESS OF AIR/WHEEZING 1 Dec 19, 2019 [id number] September 04, 2019 PAMELA RAMSEY [facility] ALCOHOL PREP PAD Active USE 1 PAD ON SKIN BIW TO CLEAN AND DISINFECT THE SKIN 200 Sep 29, 2020 [id number] Sep 30, 2019 CHUCHOMAURICIOGILBERT [facility] ALCOHOL PREP PAD Discontinued USE 1 PAD ON SKIN BI W TO CLEAN AND DISINFECT THE SKIN 200 Dec 19, 2019 [id number] Jun 06, 2019 BRAULIOPAMELA [facility] ALCOHOL PREP PAD Discontinued USE 1 PAD ON SKIN BI W TO CLEAN AND DISINFECT THE SKIN 200 Jul 25, 2019 [id number] Nov 12, 2018 PAMELA RAMSEY [facility] ASCORBIC ACID 250MG TAB Non-VA TAKE ONE TABLET BY MOUTH ONCE A DAY Non-VA Documented by: SHANIQUA SCHMIDT nted at: [facility] ASPIRIN 25MG/DIPYRIDAMOLE 200MG CAP,SA Active T CHAPIN 1 CAPSULE BY MOUTH TWO TIMES A DAY - SWALLOW WHOLE. DO NOT CRUSH OR CHEW. FOR RECURRENT TIA/STROKE 180 Dec 19, 2019 [id number] Dec 20, 2018 [facility]AMELA RAMSEY [facility] ASPIRIN 25MG/DIPYRIDAMOLE 200MG CAP,SA Discontinued T CHAPIN 1 CAPSULE BY MOUTH TWO TIMES A DAY - SWALLOW WHOLE. DO NOT CRUSH OR CHEW. FOR RECURRENT TIA/STROKE 180 Feb 06, 2019 [id number] Sep 28, 2018 ZACHARY GRECO ASPIRIN 81MG TAB,EC Non- VA TAKE ONE TABLET BY MOUTH ONCE A DAY Non-VA Documented by: PADMA LONG nted at: [facility] ATORVASTATIN CA 80MG TAB Active TAKE ONE TABLET BY MOUTH AT BEDTIME FOR CHOLESTEROL - REPORT ANY UNEXPLAINED MUSCLE PAIN/WEAKNESS TO YOUR PROVIDER 90 Dec 19, 2019 [id number] September 04, 2019 PAMELA RAMSEY ATORVASTATIN CA 80MG TAB Discontinued TAKE ONE TABLET BY MOUTH AT BEDTIME FOR CHOLESTEROL - REPORT ANY UNEXPLAINED MUSCLE PAIN/WEAKNESS TO YOUR PROVIDER 90 Dec 20, 2018 [id number] Nov 12, 2018 PAMELA RAMSEY BUDESONIDE 160MCG/FORMOTEROL FUM 4.5MCG/SPRAY INHL,ORAL,10.2 GM Active INHALE 2 PUFFS BY MOUTH TWO TIMES A DAY FOR BREATHING. SHAKE WELL. RINSE MOUTH AND SPIT AFTER EACH USE. 3 Apr 24, 2020 [id number] August 22, 2019 LISSA OATES [facility] CALCIUM/VITAMIN D TAB No n-VA TAKE BY MOUTH ONCE A DAY Non-V A Documented by: PADMA LONG nted at: [facility] CARBOXYMETHYLCELLULOSE NA 0.5% SOLN,OPH Active INSTILL ONE DROP IN BOTH EYES FOUR TIMES A DAY FOR DRY EYES 15 Feb 01, 2020 [id number] September 03 0 [facility] DICLOFENAC NA 1% GEL,TOP Discontinued APPLY 2 GRAMS A FFECTED AREA TWO TIMES A DAY NEEDED FOR PAIN AND INFLAMMATION. DO NOT EXCEED 16GM DAILY TO ANY AFFECTED JOINT OF LOWER EXTREMITIES. DO NOT EXCEED 8GM DAILY TO ANY AFFECTED JOINT OF UPPER EXTREMITES. DO NOT EXCEED TOTAL DOSE OF 32GM DAILY FOR ALL JOINTS. 100 Oct 31, 2018 [id number] Oct 06, 2018 [facility] DICLOFENAC NA 1% GEL,TOP APPLY 2 GRAMS A FFECTED AREA TWO TIMES A DAY NEEDED FOR PAIN AND INFLAMMATION. DO NOT EXCEED 16GM DAILY TO ANY AFFECTED JOINT OF LOWER EXTREMITIES. DO NOT EXCEED 8GM DAILY TO ANY AFFECTED JOINT OF UPPER EXTREMITES. DO NOT EXCEED TOTAL DOSE OF 32GM DAILY FOR ALL JOINTS. 100 Jan 17, 2019 [id number] Dec 20, 2018 PAMELA RAMSEY FLUTICASONE PROPIONATE 50MCG/SPRAY SOLN,NASAL,16GM Active INSTILL 1 SPRAY IN EACH NOSTRIL ONCE A DAY SHAKE GENTLY BEFORE USE! - MUST BE USED DIRECTED FOR 3 WEEKS TO PROVIDE BENEFIT. * NO EARLY REFILLS * 1UNIT = 30DAYS AT 4 PF/DAY OR 60DAYS AT 2PF/DAY 2 Dec 19, 2019 [id number] August 26, 2019 PAMELA RAMSEY KETOTIFEN 0.025% SOLN,OPH Active INSTILL 1 DROP IN BOTH EYES TWO TIMES A DAY FOR RELIEF OF ALLERGY SYMPTOMS IN EYE(S) Feb 01, 2020 [id number] September 04, 2019 [facility] LANCET,SOFTCLIX Active USE LANCET BIW FOR TESTING BL OOD GLUCOSE DIRECTED 100 Sep 29, 2020 [id number] Sep 30, 2019 [facility]ICIO RANK[facility] LANCET,SOFTCLIX Discontinued USE LANCET BIW FO R TESTING BLOOD GLUCOSE DIRECTED 100 Dec 19, 2019 [id number] Jun 06, 2019 [facility] RAM[facility] LANCET,SOFTCLIX Discontinued USE LANCET BIW FO R TESTING BLOOD GLUCOSE DIRECTED Jul 25, 2019 [id number] Nov 12, 2018 [facility]ELA RAMSEY [facility] LISINOPRIL 40MG TAB Non- VA TAKE ONE-HALF TABLET BY MOUTH EVERY MORNING Non-VA Documented by: PAMELA RAMSEY nted at: [facility] LORATADINE/PSEUDOEPHEDRINE TAB,SA Non-VA TAKE BY MOUTH No n-VA Documented by: JUAN LANG nted at: [facility] MAGNESIUM OXIDE 400MG TAB Non-VA TAKE [...] ACID (REPLACES ACIPHEX) 180 Dec 19, 2019 [id number] August 26, 2019 PAMELA RAMSEY POLYETHYLENE GLYCOL [...] Documented by: KATHERINE MATT Docume nted at: [facility] PREGABALIN 150MG CAP,ORAL Non-VA TAKE 1 CAPSULE BY MOUTH TWO TIMES A DAY Non-VA Docume nted by: PAMELA RAMSEY Docume nted at: [facility] SEMAGLUTIDE INJ,SOLN Non -VA INJECT SUBCUTANEOUSLY EVERY WEEK Non-VA Documented by: ANAYELI KIRKPATRICK Docume nted at: [facility] TERBINAFINE HCL 1% CREAM,TOP Active APPLY LIGHT LY TO AFFECTED AREA TWO TIMES A DAY FOR INFECTION 90 Sep 23, 2020 [id number] Sep 24, 2019 ADRIEL HERNANDEZ UREA 20% CREAM,TOP Active APPLY LIGHTLY (20%) TO AFFECTED AREA TWO TIMES A DAY NEEDED TO PROMOTE HEALING,RUB IN UNTIL COMPLETELY ABSORBED*FOR TOPICAL USE ONLY* APPLY TO BOTH FEET DIRECTED. 90 Sep 25, 2020 [id number] Sep 26, 2019 ADRIEL HERNANDEZ Problems (Conditions): [...] Alcohol intake above recommended sensible limits Active 812017318 PADMA LONG [facility] Allergic conjunctivitis Active 636697153 [facility] Bilateral senile combined form cataracts of eyes Active 17845386047 9132 [facility] Bilateral tinnitus Active 6850083756726 CHASTITY JEAN [facility] Coronary arteriosclerosis Active 78337950 September 08, 2014 Entered By: PADMA LONG Comment: hx of ptca to RCA several yrs. agoSeptember 08, 2014 Entered By: PADMA LONG Comment: heart cath 09/01/14, neg. / previous stent to RCA,, via abida meneses ks HATCHER, JENNEY R [facility] Diabetes mellitus Active 05609193 PAMELA RAMSEY [facility] Disorder of pancreas Active 5482329 September 08, 2014 Entered By: PADMA LONG Comment: 2.5cm low density lseion in bodyMa2014 Entered By: PADMA LONG Comment: question of communication with pancreatic ductMa2014 Entered By: PADMA LONG Comment: favored to be cystic pancreatic cancerSeptember 08, 2014 Entered By: PADMA LONG Comment: per abdominal CT 09/01/14, via abida meneses ks FRAZIER, JAY J [facility] Dry eyes Active 709560802 [facility] Gastro-esophageal reflux disease without esophagitis ( SNOMED CT 502686882) Active 894115965 ALF GUEVARA [facility] History of malignant neoplasm of lung Active 103357352 CHAPO BARRETO [facility] Hyperlipidemia (SNOMED CT 71362877) Active 58245974 PAMELA RAMSEY [facility] Lung mass Active 963159705 September 08, 2014 E ntered By: PADMA LONG Comment: 4.5 cm mass, post. segment right upper lobe.September 08, 2014 Entered By: PADMA LONG Comment: mild adenopathy in mediastinum and bilat. hil2014 Entered By: PADMA LONG Comment: most likely related to lung cancerSeptember 08, 2014 Entered By: PADMA LONG Comment: per ct angio of chest with contrast 09/01/14,via abida meneses ksSep 23, 2014 Entered By: PADMA LONG Comment: per path report- mod. differentiated bronchogenic adenoca. 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 Active 72704300 KATHERINE MATT [facility] Obesity Active 597676185 [facility] Obstructive sleep apnea syndrome (SNOMED CT 08139765) Active 258257 015 [facility] D[facility] Pancreatic cyst Active 65650174 JAYLENE GUEVARA [facility] Papilloma of right eyelid Active 856997753013694 [facility] Polyp of colon Active 82825186 Jan 23 Entered By: PADMA LONG Comment: c-scope 01/17/16, multiple benign colonic polypsMar 2017 Entered By: PADMA LONG Comment: c-scope,06/25/17,[facility], three benign polyps- sigmoid colon, transverse colon,cecum. see path report cprs SHARRON TORRES [facility] Pulmonary emphysema Active 09813988 0 BRIANA GAVIN [facility] Sensorineural hearing loss, bilateral Active 073337061 [facility] JE[facility] Snoring Active 08943719 SONG BULLOCK [facility] Type 2 diabetes mellitus without complication Active 238651783 [facility] Environmental Allergies (ICD-9-CM 477.9) Inactive 477.9 Dec 18, 2017 PADMA LONG [facility] External hemorrhoids without mention of complication (ICD-9- CM 455.3) Inactive 455.3 Dec 18, 2017 PADMA LONG [facility] Impotence of organic origin (ICD-9-CM 607.84) Inactive 607.84 Dec 18, 2017 PADMA LONG [facility] Screening for Lipoid disorders (ICD-9-CM V77.91) Inactive V77.91 Jan 18, 2007 PADMA LONG [facility] Stye * (ICD-9-CM 373.11) Inactive 373.11 Dec 18 201 8 Jan 18, 2007 Entered By: PADMA LONG Comment: bilat lower lids, chronic/recurrent [facility]AD[facility] Tobacco Use Disorder, Continuous Inactive 305.1 Dec 18, 2017 Jan 18, 2007 Entered By: PADMA LONG Comment: one ppd PADMA LONG [facility] Radiology Reports: +/- 30 days of [...] the Encounter. The data comes from all [facility] facilities. Date/Time Pathology Report Provider Source [...] 11:11) Microscopic examination is performed. DIAGNOSIS: Specimen: [id number] Spec Type: SURGICAL Abdulkadir: 04/03/19 Rec: 04/03/19-1241 PATHOLOGIC DIAGNOSIS Skin lesion, right upper cheek, biopsy: 1. Seborrheic keratosis, not involving resection margins. 2. Solar elastosis. Skin lesion, right lower mid margin, biopsy: 1. Seborrheic keratosis, with tumor at tissue edge/margin, but with benign features. LL COPIES TO: KATHERINE MATT [facility] PATHOLOGIST CODES: 41373/2 at 1235 The gross and microscopic examinations and interpretation were performed at [facility] Department of Pathology, [address] [place] [id number]. Slides and paraffin blocks are on file at [facility]. =--=--=--=--=--=--=--=--=--=--=--=--=--=--=--=--=--=--=--=--=--=--=--=--=--=-- Performing Laboratory: Surgical Pathology Report Performed By: [facility] [CLIA# [id number]] [address] [place] [id number] [address] [facility], [facility] 15 Encounter Notes: All associated encounter notes No Data Provided for This Section
--- OUTSIDE RECORDS SUMMARY | 2019-12-02 13:02 | XMS REPORT | Encounter Summary ---
Author [facility] Organization Department of [facility] [employer] Address [address] [place] [address] Phone Unavailable Care Team Providers Care Blood Bank Laboratory Technologist Name Role Phone MARYADRIEL YAN PCP Unavailable [...] AMBULATORY - MEDICINE [facility] Mar 10, 2019 12:30 PM AMBULATORY - SURGERY [facility] Mar 21, 2019 09:15 AM AMBULATORY - NONE [facility] Mar 21, 2019 09:30 AM AMBULATORY - MEDICINE [facility] Mar 21, 2019 09:31 AM AMBULATORY - MEDICINE [facility] Mar 21, 2019 10:00 AM AMBULATORY - MEDICINE [facility] Mar 21, 2019 10:01 AM AMBULATORY - MEDICINE [facility]UR [facility] Mar 26, 2019 10:00 AM AMBULATORY - NONE [facility] Apr 03, 2019 10:00 AM AMBULATORY - SURGERY [facility] Apr 14, 2019 10:00 AM AMBULATORY - SURGERY [facility] Apr 28, 2019 11:00 AM AMBULATORY - NONE [facility] Jun 25, 2019 11:30 AM AMBULATORY - NONE [facility] Jun 25, 2019 01:15 PM AMBULATORY - MEDICINE [facility] Surgical Procedures: All associated to [...] Range Comment Dec 18, 2018 08:45 AM [facility] CBC & DIFF Specimen [...] 0.4 % Dec 18, 2018 08:45 AM [employer] [facility] COMPREHENSIVE METABOLIC PA KELLE Specimen Type: [...] EGFR >60 Dec 18, 2018 08:45 AM [employer] [facility] LIPID PROFILE(HDL,TRIG,CHO L,LDL) Specimen Type: PLASMA Comment: For eGFR: eGFR results >60 are imprecise. Many variables affect the calculated result. Interpretation of eGFR results >60 must be monitored over time. CHOLESTEROL 172 mg/dL 0-200 TRIGS 190 mg/dL H 0-150 HDL-CHOLESTEROL 40 mg/dL >40 LDL (CALC) 94 mg/dL 0-99.9 Dec 18, 2018 08:45 AM [employer] [facility] PROSTATIC SPECIFIC ANTIGEN (TOTAL) Specimen Type: SERUM No comment entered. PROSTATIC SPECIFIC ANTIGEN(TOTAL) 1.3 ng/mL 0-4 Dec 18, 2018 08:45 AM [facility] HEMOGLOBIN A1C Specimen Type: BLOOD No comment entered. HEMOGLOBIN A1C 6.7 % H 4.0-6.0 Dec 18, 2018 08:45 AM [facility] URIC ACID (mg/dL) Specimen Type: PLASMA Comment: For eGFR: eGFR results >60 are imprecise. Many variables affect the calculated result. Interpretation of eGFR results >60 must be monitored over time. URIC ACID (mg/dL) 5.8 mg/dL 3.5-7.2 Dec 18, 2018 08:45 AM [facility] URINALYSIS Specimen Type: URINE No comment entered. URINE COLOR Yellow SPECIFIC GRAVITY 1.013 1.005-1.030 UROBILINOGEN Negative mg/dL 0.1-1.0 URINE BILIRUBIN Negative Negative URINE KETONES Negative mg/dl Negative URINE GLUCOSE Negative mg/dL Negative URINE PROTEIN Negative mg/dl Negative-Tr zainab URINE PH 5.0 5-8 APPEARANCE,URINE Clear Clear URINE BLOOD Negative Negative URINE NITRITE Negative Negative LEUKOCYTE ESTERASE Negative Negative Dec 18, 2018 08:45 AM [facility] MICROALBUMIN (ANANT,WI) RANDO M URINE Specimen Type: URINE Comment: Microalbumin is below the linearity of the instrument, unable to calculate the albumin/creatinine ratio. *MICROALBUMIN,RAND < 5 ug/mL *MICROALB/CREAT canc mcg/mg cr *PROT/TAKE OFF MAN RATIO 0.1 *UR PROTEIN 8 mg/dL *UR [...] and tobacco- related health factors from the [place] facility where the Encounter took place. Current Smoking Status This section includes the most current smoking, or tobacco -related health factor, from the [place] facility where the Encounter took place. Date/Time Current Smoking Status Comment [facility] Jun 26, 2018 02:13 PM VA-TOBACCO QUIT 15 YRS OR MORE [facility] Tobacco Use History This section includes a history of the smoking, or tobacco -related health factors, that were collected on or before the date of the Encoun ter. The data comes from the [place] facility where the Encounter took place. Date/Time Smoking Status/Tobacco Use Comment [facility] Jun 26, 2018 02:13 PM VA-TOBACCO QUIT 15 YRS OR MORE [facility] Jun 27, 2017 01:39 PM NON-TOBACCO USER [facility] Jun 27, 2017 01:16 PM NON-TOBACCO USER [facility] Jan 06, 2015 02:07 PM NON-TOBACCO USER [facility] Nov 23, 2014 10:38 AM NON-TOBACCO USER [facility] Oct 26, 2014 10:36 AM NON-TOBACCO USER [facility] Oct 14, 2014 11:09 AM NON-TOBACCO USER [facility] Advance Directives: All historical and [...] [facility] pharmacy in [facility] 15 m [facility], and 2) all medications recorded [...] TEST BLOOD GLUCOSE 50 Dec 19, 2019 [id number] September 04, 2019 PAMELA RAMSEY ACCU-CHEK CHARLES PLUS (GLUCOSE) TEST STRIP Discontinued USE 1 STRIP FOR TESTING TWO TIMES PER WEEK - DIRECTED TO TEST BLOOD GLUCOSE 50 Jul 25, 2019 [id number] Nov 12, 2018 PAMELA RAMSEY CB[facility] ALBUTEROL SO4 90MCG/ACTUAT (CFC-F) INHL,ORAL,6.7GM Active INHALE 2 PUFFS BY ORAL INHALATION EVERY 4 HOURS NEEDED FOR BREATHING. SHAKE WELL. RINSE MOUTHPIECE FREQUENTLY TO PREVENT CLOGGING. USE NEEDED FOR SHORTNESS OF AIR/WHEEZING FOR BREATHING. SHAKE WELL. RINSE MOUTHPIECE FREQUENTLY TO PREVENT CLOGGING. USE NEEDED FOR SHORTNESS OF AIR/WHEEZING 1 Dec 19, 2019 [id number] September 04, 2019 PAMELA RAMSEY CBGUILLERMO ALCOHOL PREP PAD Active USE 1 PAD ON SKIN BIW TO CLEAN AND DISINFECT THE SKIN 200 Sep 29, 2020 [id number] Sep 30, 2019 MAURICIO RANKIN CB[facility]LLERMO ALCOHOL PREP PAD Discontinued USE 1 PAD ON SKIN BI W TO CLEAN AND DISINFECT THE SKIN 200 Dec 19, 2019 [id number] Jun 06, 2019 PAMELA RAMSEY ALCOHOL PREP PAD Discontinued USE 1 PAD ON SKIN BI W TO CLEAN AND DISINFECT THE SKIN 200 Jul 25, 2019 [id number] Nov 12, 2018 PAMELA RAMSEY CBGUILLERMO ASCORBIC ACID 250MG TAB Non-VA TAKE ONE TABLET BY MOUTH ONCE A DAY Non-VA Documented by: SHANIQUA SCHMIDT nted at: [facility] ASPIRIN 25MG/DIPYRIDAMOLE 200MG CAP,SA Active T CHAPIN 1 CAPSULE BY MOUTH TWO TIMES A DAY - SWALLOW WHOLE. DO NOT CRUSH OR CHEW. FOR RECURRENT TIA/STROKE 180 Dec 19, 2019 [id number] Dec 20, 2018 [facility]A [facility] ASPIRIN 25MG/DIPYRIDAMOLE 200MG CAP,SA Discontinued T CHAPIN 1 CAPSULE BY MOUTH TWO TIMES A DAY - SWALLOW WHOLE. DO NOT CRUSH OR CHEW. FOR RECURRENT TIA/STROKE 180 Feb 06, 2019 [id number] Sep 28, 2018 ZACHARY GRECO [facility] ASPIRIN 81MG TAB,EC Non- [facility] TAKE ONE TABLET BY MOUTH ONCE A DAY Non-VA Documented by: PADMA LONG nted at: [facility] ATORVASTATIN CA 80MG TAB Active TAKE ONE TABLET BY MOUTH AT BEDTIME FOR CHOLESTEROL - REPORT ANY UNEXPLAINED MUSCLE PAIN/WEAKNESS TO YOUR PROVIDER 90 Dec 19, 2019 [id number] September 04, 2019 PAMELA RAMSEY ATORVASTATIN CA 80MG TAB Discontinued TAKE ONE TABLET BY MOUTH AT BEDTIME FOR CHOLESTEROL - REPORT ANY UNEXPLAINED MUSCLE PAIN/WEAKNESS TO YOUR PROVIDER 90 Dec 20, 2018 [id number] Nov 12, 2018 PAMELA RAMSEY BUDESONIDE 160MCG/FORMOTEROL FUM 4.5MCG/SPRAY INHL,ORAL,10.2 GM Active INHALE 2 PUFFS BY MOUTH TWO TIMES A DAY FOR BREATHING. SHAKE WELL. RINSE MOUTH AND SPIT AFTER EACH USE. 3 Apr 24, 2020 [id number] August 22, 2019 LISSA OATES [facility] CALCIUM/VITAMIN D TAB No n-VA TAKE BY MOUTH ONCE A DAY Non-V A Documented by: PADMA LONG nted at: [facility] CARBOXYMETHYLCELLULOSE NA 0.5% SOLN,OPH Active INSTILL ONE DROP IN BOTH EYES FOUR TIMES A DAY FOR DRY EYES 15 Feb 01, 2020 [id number] September 03 0 [place]AW [facility] DICLOFENAC NA 1% GEL,TOP Discontinued APPLY 2 GRAMS A FFECTED AREA TWO TIMES A DAY NEEDED FOR PAIN AND INFLAMMATION. DO NOT EXCEED 16GM DAILY TO ANY AFFECTED JOINT OF LOWER EXTREMITIES. DO NOT EXCEED 8GM DAILY TO ANY AFFECTED JOINT OF UPPER EXTREMITES. DO NOT EXCEED TOTAL DOSE OF 32GM DAILY FOR ALL JOINTS. 100 Oct 31, 2018 [id number] Oct 06, 2018 ANAYELI KIRKPATRICK Luda Juan [...] FOR ALL JOINTS. 100 Jan 17, 2019 [id number] Dec 20, 2018 PAMELA RAMSEY FLUTICASONE PROPIONATE 50MCG/SPRAY SOLN,NASAL,16GM Active INSTILL 1 SPRAY IN EACH NOSTRIL ONCE A DAY SHAKE GENTLY BEFORE USE! - MUST BE USED DIRECTED FOR 3 WEEKS TO PROVIDE BENEFIT. * NO EARLY REFILLS * 1UNIT = 30DAYS AT 4 PF/DAY OR 60DAYS AT 2PF/DAY 2 Dec 19, 2019 [id number] August 26, 2019 PAMELA RAMSEY KETOTIFEN 0.025% SOLN,OPH Active INSTILL 1 DROP IN BOTH EYES TWO TIMES A DAY FOR RELIEF OF ALLERGY SYMPTOMS IN EYE(S) Feb 01, 2020 [id number] September 04, 2019 [place] SHAW [facility] LANCET,SOFTCLIX Active USE LANCET BIW FOR TESTING BL OOD GLUCOSE DIRECTED Sep 29, 2020 [id number] Sep 30, 2019 MAURICIO RANKIN LANCET,SOFTCLIX Discontinued USE LANCET BIW FO R TESTING BLOOD GLUCOSE DIRECTED Dec 19, 2019 [id number] Jun 06, 2019 PAMELA RAMSEY LANCET,SOFTCLIX Discontinued USE LANCET BIW FO R TESTING BLOOD GLUCOSE DIRECTED Jul 25, 2019 [id number] Nov 12, 2018 PAMELA RAMSEY LISINOPRIL 40MG [...] ACID (REPLACES ACIPHEX) 180 Dec 19, 2019 [id number] August 26, 2019 PAMELA RAMSEY POLYETHYLENE GLYCOL [...] Non-VA Documented by: KATHERINE MATT nted at: [facility] PREGABALIN 150MG CAP,ORAL Non-VA TAKE [...] DAY FOR INFECTION 90 Sep 23, 2020 [id number] Sep 24, 2019 ADRIEL HERNANDEZ UREA 20% CREAM,TOP Active APPLY LIGHTLY (20%) TO AFFECTED AREA TWO TIMES A DAY NEEDED TO PROMOTE HEALING,RUB IN UNTIL COMPLETELY ABSORBED*FOR TOPICAL USE ONLY* APPLY TO BOTH FEET DIRECTED. 90 Sep 25, 2020 [id number] Sep 26, 2019 ADRIEL HERNANDEZ [facility] Problems (Conditions): All historical and current [...] Alcohol intake above recommended sensible limits Active [id number] PADMA LONG [facility] Allergic conjunctivitis Active 951327318 HURLEYNEDA [facility] Bilateral senile combined form cataracts of eyes Active [id number] 9108 HURLEYFACUNDONEDA J [facility] Bilateral tinnitus Active [id number] CHASTITY JEAN [facility] Coronary arteriosclerosis Active [id number] September 08, 2014 Entered By: PADMA LONG Comment: hx of ptca to RCA several yrs. agoSeptember 08, 2014 Entered By: PADMA LONG Comment: heart cath 09/01/14, neg. / previous stent to RCA,, via abida meneses ks HATCHER, JENNEY R ROBERT [facility] Diabetes mellitus Active 26093585 PAMELA RAMSEY [facility] Disorder of pancreas Active [id number] September 08, 2014 Entered By: PADMA LONG Comment: 2.5cm low density lseion in bodyMay 2014 Entered By: PADMA LONG Comment: question of communication with pancreatic ductMay 2014 Entered By: PADMA LONG Comment: favored to be cystic pancreatic cancerMa2014 Entered By: PADMA LONG Comment: per abdominal CT 09/01/14, via abida meneses ks FRAZIER, JAY J [facility] Dry eyes Active 287139217 COLINNEDA [facility] Gastro-esophageal reflux disease without esophagitis ( SNOMED CT 648217724) Active 891703344 ALF GUEVARA [facility] History of malignant neoplasm of lung Active 341157672 ESTEVANCHAPO Lares [facility] Hyperlipidemia (SNOMED CT 89567856) Active 69776638 PAMELA RAMSEY [facility] Lung mass Active 157553352 September 08, 2014 E ntered By: PADMA [...] uncertain behavior of skin of eyelid Active 50795029 KATHERINE MATT [facility] Obesity Active 418362029 [facility] [facility] Obstructive sleep apnea syndrome (SNOMED CT 37169680) Active 225834 015 [place] [facility] Pancreatic cyst Active 85372710 JAYLENE GUEVARA [facility] Papilloma of right eyelid Active [id number] NEDA SHAW [facility] Polyp of colon Active 00461061 Jan 23 16 Entered By: PADMA LONG Comment: c-scope 01/17/16, multiple benign colonic polypsJun 28, 2017 Entered By: PADMA LONG Comment: c-scope,06/25/17,[facility], three benign polyps- sigmoid colon, transverse colon,cecum. see path report cprs SHARRON TORRES [facility] Pulmonary emphysema Active [id number] 0 BRIANA GAVIN [facility] Sensorineural hearing loss, bilateral Active 552962928 CHASTITY JEAN [facility] Snoring Active 65988424 BULLOCK,SONG [facility] Type 2 diabetes mellitus without complication Active 921405549 [place] SHAW [facility] Environmental Allergies (ICD-9-CM 477.9) Inactive 477.9 Dec 18, 2017 [facility] External hemorrhoids without mention of complication (ICD-9- CM 455.3) Inactive 455.3 Dec 18, 2017 [facility] Impotence of organic origin (ICD-9-CM 607.84) Inactive 607.84 Dec 18, 2017 [facility] Screening for Lipoid disorders (ICD-9-CM V77.91) Inactive V77.91 Jan 18, 2007 [facility] Stye * (ICD-9-CM [...] [facility]. He can be reached at: [phone] /es/ [place] APPLE RN BSN Signed: 01/15/2019 11:32 Receipt Acknowledged By: * AWAITING SIGNATURE * ANA CONKLIN JESSICA L ARTUR J. DOLE [facility]
--- OUTSIDE RECORDS SUMMARY | 2019-12-02 13:03 | XMS REPORT | Encounter Summary ---
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 Date/Time Encounter Type Encounter Description Reason Provider Source Jan 22, 2019 02:08 PM Outpatient Encounter ADMIN PAT ACTIVTIES (MASVIELKA NCT) ARTUR BLAS [facility] IHE Encounter Template Text not used by [place] Assessments - Encounter Diagnoses No Data Provided for This Section Plan of Treatment: Future Appointments (+ 6 months) and Future Tests (+/- 45 day s) The Plan of Treatment section includes future care activities for the patient fr om all [place] treatment facilities. This section includes future appointments and fu ture orders which are active, pending or scheduled. Future Appointments This section includes appointments that were scheduled t o occur 6 months from the date of the Encounter, up to a maximum of 20 appointme nts. The data comes from all [place] treatment facilities. Appointment Date/Time Appointment Type Appointment Facili ty Name Jan 31, 2019 09:00 AM AMBULATORY - MEDICINE [facility] Mar 10, 2019 12:30 PM AMBULATORY - SURGERY [facility] Mar 21, 2019 09:15 AM AMBULATORY - NONE [facility] Mar 21, 2019 09:30 AM AMBULATORY - MEDICINE [facility] Mar 21, 2019 09:31 AM AMBULATORY - MEDICINE ARTUR BLAS [facility] Mar 21, 2019 10:00 AM AMBULATORY - MEDICINE [facility] Mar 21, 2019 10:01 AM AMBULATORY - MEDICINE ARTUR [place] LEVIMila Maite [facility] Mar 26, 2019 10:00 AM [facility] Apr 03, 2019 10:00 AM [facility] - SURGERY ARTUR BALS [facility] Apr 14, 2019 10:00 AM AMBULATORY - SURGERY [facility] Apr 28, 2019 11:00 AM AMBULATORY - NONE ARTUR BLAS TRAN Jun 25, 2019 11:30 AM AMBULATORY - NONE ARTUR [place] Jun 25, 2019 01:15 PM AMBULATORY - MEDICINE ARTUR BLAS V [facility] Jul 23, 2019 11:00 AM [facility]ORY - NONE [facility] Procedures: All associated to the encounter [...] and tobacco- related health factors from the [place] facility where the Encounter took place. Current Smoking Status This section includes the most current smoking, or tobacco -related health factor, from the [place] facility where the Encounter took place. Date/Time Current Smoking Status Comment Facility Jun 26, 2018 02:13 PM VA-TOBACCO QUIT 15 YRS OR MORE PORSHA BLAS [facility] Tobacco Use History This section includes a history of the smoking, or tobacco -related health factors, that were collected on or before the date of the Encoun ter. The data comes from the [place] facility where the Encounter took place. Date/Time Smoking Status/Tobacco Use Comment [facility] Jun 26, 2018 02:13 PM [place]-TOBACCO QUIT 15 YRS OR MORE PORSHA BLAS [facility] Jun 27, 2017 01:39 PM NON-TOBACCO USER [facility] Jun 27, 2017 01:16 PM [...] patient. The data comes from a ll [place] treatment facilities. It does not list Allergies/ADRs that were removed or entered in error. Some allergies/ADRs may be reported in t he Immunization section. Allergen Event Date Event Type Reaction(s) Severity Source [place] September 08, 2014 Propensity to adverse reactions to drug (diso rder) [facility] 15 [place] September 08, 2014 Propensity to adverse reactions to drug (diso rder) [facility], [facility] 15 Medications: VA dispensed (-15 months) and Non-VA Documented (Obtained Outside A) Section Date Range: 1) prescriptions processed by a VA pharmacy in the last 15 m [place], and 2) all medications recorded in the [place] medical record as "non-VA medic ations". Pharmacy terms refer to [place] pharmacy's work on prescriptions. VA patient s are advised to take their medications as instructed by their health care team. The data comes from all [place] treatment facilities. Glossary of Pharmacy Terms:Active = A prescription that can be filled at the local [place] pharmacy.Active: On Hold = An active prescription that will not be filled until pharmacy resolves the issue.Active: Susp = An active prescription that is not scheduled to be filled yet.Clinic Order = A medication received during a visit to a [place] clinic or emergency department (currently not available).Discontinued [...] TEST BLOOD GLUCOSE 50 Dec 19, 2019 [id number] September 04, 2019 PAMELA RAMSEY ACCU-CHEK CHARLES PLUS (GLUCOSE) TEST STRIP Discontinued USE 1 STRIP FOR TESTING TWO TIMES PER WEEK - DIRECTED TO TEST BLOOD GLUCOSE 50 Jul 25, 2019 [id number] Nov 12, 2018 PAMELA RAMSEY ALBUTEROL SO4 90MCG/ACTUAT (CFC-F) INHL,ORAL,6.7GM Active INHALE 2 PUFFS BY ORAL INHALATION EVERY 4 HOURS NEEDED FOR BREATHING. SHAKE WELL. RINSE MOUTHPIECE FREQUENTLY TO PREVENT CLOGGING. USE NEEDED FOR SHORTNESS OF AIR/WHEEZING FOR BREATHING. SHAKE WELL. RINSE MOUTHPIECE FREQUENTLY TO PREVENT CLOGGING. USE NEEDED FOR SHORTNESS OF AIR/WHEEZING 1 Dec 19, 2019 [id number] September 04, 2019 PAMELA RAMSEY ALCOHOL PREP PAD Active USE 1 PAD ON SKIN BIW TO CLEAN AND DISINFECT THE SKIN 200 Sep 29, 2020 [id number] Sep 30, 2019 MAURICIO RANKIN ALCOHOL PREP PAD Discontinued USE 1 PAD ON SKIN BI W TO CLEAN AND DISINFECT THE SKIN 200 Dec 19, 2019 [id number] Jun 06, 2019 PAMELA RAMSEY ALCOHOL PREP PAD Discontinued USE 1 PAD ON SKIN BI W TO CLEAN AND DISINFECT THE SKIN 200 Jul 25, 2019 [id number] Nov 12, 2018 PAMELA RAMSEY ASCORBIC ACID 250MG TAB Non-VA TAKE ONE TABLET BY MOUTH ONCE A DAY Non-VA Documented by: SHANIQUA SCHMIDT nted at: [facility] ASPIRIN 25MG/DIPYRIDAMOLE 200MG CAP,SA Active T CHAPIN 1 CAPSULE BY MOUTH TWO TIMES A DAY - SWALLOW WHOLE. DO NOT CRUSH OR CHEW. FOR RECURRENT TIA/STROKE 180 Dec 19, 2019 [id number] Dec 20, 2018 PAMELA RAMSEY ASPIRIN 25MG/DIPYRIDAMOLE 200MG CAP,SA Discontinued T CHAPIN 1 CAPSULE BY MOUTH TWO TIMES A DAY - SWALLOW WHOLE. DO NOT CRUSH OR CHEW. FOR RECURRENT TIA/STROKE 180 Feb 06, 2019 [id number] Sep 28, 2018 ZACHARY GRECO V [facility] ASPIRIN 81MG TAB,EC Non- [place] TAKE ONE TABLET BY MOUTH ONCE A DAY Non-VA Documented by: PADMA LONG nted at: [facility] ATORVASTATIN CA 80MG TAB Active TAKE ONE TABLET BY MOUTH AT BEDTIME FOR CHOLESTEROL - REPORT ANY UNEXPLAINED MUSCLE PAIN/WEAKNESS TO YOUR PROVIDER 90 Dec 19, 2019 [id number] September 04, 2019 PAMELA RAMSEY ATORVASTATIN CA 80MG TAB Discontinued TAKE ONE TABLET BY MOUTH AT BEDTIME FOR CHOLESTEROL - REPORT ANY UNEXPLAINED MUSCLE PAIN/WEAKNESS TO YOUR PROVIDER 90 Dec 20, 2018 [id number] Nov 12, 2018 PAMELA RAMSEY BUDESONIDE 160MCG/FORMOTEROL FUM 4.5MCG/SPRAY INHL,ORAL,10.2 GM Active INHALE 2 PUFFS BY MOUTH TWO TIMES A DAY FOR BREATHING. SHAKE WELL. RINSE MOUTH AND SPIT AFTER EACH USE. 3 Apr 24, 2020 [id number] August 22, 2019 LISSA OATES [facility] CALCIUM/VITAMIN D TAB No n-[place] TAKE BY MOUTH ONCE A DAY Non-V A Documented by: PADMA LONG nted at: [facility] CARBOXYMETHYLCELLULOSE NA 0.5% SOLN,OPH Active INSTILL ONE DROP IN BOTH EYES FOUR TIMES A DAY FOR DRY EYES Feb 01, 2020 [id number] September 03 0 NEDA SHAW [facility] DICLOFENAC NA 1% GEL,TOP Discontinued APPLY 2 GRAMS A FFECTED AREA TWO TIMES A DAY NEEDED FOR PAIN AND INFLAMMATION. DO NOT EXCEED 16GM DAILY TO ANY AFFECTED JOINT OF LOWER EXTREMITIES. DO NOT EXCEED 8GM DAILY TO ANY AFFECTED JOINT OF UPPER EXTREMITES. DO NOT EXCEED TOTAL DOSE OF 32GM DAILY FOR ALL JOINTS. 100 Oct 31, 2018 [id number] Oct 06, 2018 ANAYELI KIRKPATRICK [facility] DICLOFENAC NA 1% GEL,TOP APPLY 2 GRAMS A FFECTED AREA TWO TIMES A DAY NEEDED FOR PAIN AND INFLAMMATION. DO NOT EXCEED 16GM DAILY TO ANY AFFECTED JOINT OF LOWER EXTREMITIES. DO NOT EXCEED 8GM DAILY TO ANY AFFECTED JOINT OF UPPER EXTREMITES. DO NOT EXCEED TOTAL DOSE OF 32GM DAILY FOR ALL JOINTS. 100 Jan 17, 2019 [id number] Dec 20, 2018 PAMELA RAMSEY FLUTICASONE PROPIONATE 50MCG/SPRAY SOLN,NASAL,16GM Active INSTILL 1 SPRAY IN EACH NOSTRIL ONCE A DAY SHAKE GENTLY BEFORE USE! - MUST BE USED DIRECTED FOR 3 WEEKS TO PROVIDE BENEFIT. * NO EARLY REFILLS * 1UNIT = 30DAYS AT 4 PF/DAY OR 60DAYS AT 2PF/DAY 2 Dec 19, 2019 [id number] August 26, 2019 PAMELA RAMSEY KETOTIFEN 0.025% SOLN,OPH Active INSTILL 1 DROP IN BOTH EYES TWO TIMES A DAY FOR RELIEF OF ALLERGY SYMPTOMS IN EYE(S) Feb 01, 2020 [id number] September 04, 2019 NEDA SHAW [facility] LANCET,SOFTCLIX Active USE LANCET BIW FOR TESTING BL OOD GLUCOSE DIRECTED Sep 29, 2020 [id number] Sep 30, 2019 MAURICIO RANKIN [facility] LANCET,SOFTCLIX Discontinued USE LANCET BIW FO R TESTING BLOOD GLUCOSE DIRECTED Dec 19, 2019 [id number] Jun 06, 2019 PAMELA RAMSEY [facility] LANCET,SOFTCLIX Discontinued USE LANCET BIW FO R TESTING BLOOD GLUCOSE DIRECTED Jul 25, 2019 [id number] Nov 12, 2018 PAMELA RAMSEY LISINOPRIL 40MG TAB Non- [place] TAKE ONE-HALF TABLET BY MOUTH EVERY MORNING Non-VA Documented by: PAMELA RAMSEY nted at: [facility] LORATADINE/PSEUDOEPHEDRINE TAB,SA Non-VA TAKE BY MOUTH No n-VA Documented by: JUAN LANG nted at: ARTUR BLAS [facility] MAGNESIUM OXIDE 400MG TAB Non-VA [...] ACID (REPLACES ACIPHEX) 180 Dec 19, 2019 [id number] August 26, 2019 PAMELA RAMSEY POLYETHYLENE GLYCOL [...] nted at: [facility] PREGABALIN 150MG CAP,ORAL Non-VA TAKE 1 CAPSULE BY MOUTH TWO TIMES A DAY Non-VA Docume nted by: PAMELA RAMSEY nted at: [facility] SEMAGLUTIDE INJ,SOLN Non -VA INJECT SUBCUTANEOUSLY EVERY WEEK Non-VA Documented by: ANAYELI KIRKPATRICK Docume nted at: ARTUR BLAS [facility] TERBINAFINE HCL 1% CREAM,TOP Active APPLY LIGHT LY TO AFFECTED AREA TWO TIMES A DAY FOR INFECTION 90 Sep 23, 2020 [id number] Sep 24, 2019 ADRIEL HERNANDEZ UREA 20% CREAM,TOP Active APPLY LIGHTLY (20%) TO AFFECTED AREA TWO TIMES A DAY NEEDED TO PROMOTE HEALING,RUB IN UNTIL COMPLETELY ABSORBED*FOR TOPICAL USE ONLY* APPLY TO BOTH FEET DIRECTED. 90 Sep 25, 2020 [id number] Sep 26, 2019 ADRIEL HERNANDEZ Problems (Conditions): All historical and current Section Date Range: From patient's date of to the date document was create d. This section includes a list of Problems (Conditions) know n to [place] for the patient. It includes both active and inacti ve problems (conditions). The data comes from all [place] treatment facilities. Problem Status Problem Code Date of Onset Date of Resolution Comm ent(s) Provider Source Alcohol intake above recommended sensible limits Active 985170040 PADMA LONG [facility] Allergic conjunctivitis Active 702161131 INLET [place] [facility] Bilateral senile combined form cataracts of eyes Active 26820602276 9108 COLINNEDA [facility] Bilateral tinnitus Active [id number] CHASTITY JEAN [facility] Coronary arteriosclerosis Active 88820863 September 08, 2014 Entered By: PADMA LONG Comment: hx of ptca to RCA several yrs. agoMa2014 Entered By: PADMA LONG Comment: heart cath 09/01/14, neg. / previous stent to RCA,, via abida meneses ks HATCHER, JENNEY R [facility] Diabetes mellitus Active 03481598 PAMELA RAMSEY [facility] Disorder of pancreas Active 4030665 September 08, 2014 Entered By: PADMA LONG Comment: 2.5cm low density lseion in bodyMay 2014 Entered By: PADMA LONG Comment: question of communication with pancreatic ductMay 2014 Entered By: PADMA LONG Comment: favored to be cystic pancreatic cancerMa2014 Entered By: PADMA LONG Comment: per abdominal CT 09/01/14, via abida meneses,PADMA Pradhan [facility] Dry eyes Active 157612346 INLET [place] [facility] Gastro-esophageal reflux disease without esophagitis ( SNOMED CT 439239828) Active 745933391 ALF GUEVARA [facility] History of malignant neoplasm of lung Active 676531168 CHAPO BARRETO [facility] Hyperlipidemia (SNOMED CT 16429741) Active 87347408 PAMELA RAMSEY [facility] Lung mass Active 174733660 September 08, 2014 E ntered By: PADMA LONG Comment: 4.5 cm mass, post. segment right upper lobe.September 08, 2014 Entered By: PADMA LONG Comment: mild adenopathy in mediastinum and bilat. hilaMay 2014 Entered By: PADMA LONG Comment: most likely related to lung cancerMa2014 Entered By: PADMA LONG Comment: per ct angio of chest with contrast 09/01/14,via zaira,[facility] 2014 Entered By: PADMA LONG Comment: per path report- mod. differentiated bronchogenic adenoca. 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 Active 47534428 KATHERINE MATT [facility] Obesity Active 855603813 [facility] Obstructive sleep apnea syndrome (SNOMED CT 58844802) Active 119220 015 PHILIPPE DOUGLASS [facility] Pancreatic cyst Active 79741762 JAYLENE GUEVARA [facility] Papilloma of right eyelid Active [id number] NEDA SHAW [facility] Polyp of colon Active 69021990 Jan 23 16 Entered By: PADMA LONG Comment: c-scope 01/17/16, multiple benign colonic polypsJun 28, 2017 Entered By: PADMA LONG Comment: c-scope,06/25/17,[facility], three benign polyps- sigmoid colon, transverse colon,cecum. see path report cprs SHARRON TORRES [facility] Pulmonary emphysema Active 58236828 0 BRIANA GAVIN [facility] Sensorineural hearing loss, bilateral Active 309318853 CHASTITY JEAN [facility] Snoring Active 56144028 SONG BULLOCK [facility] Type 2 diabetes mellitus without complication Active 939732001 NEDA SHAW [facility] Environmental Allergies (ICD-9-CM 477.9) Inactive 477.9 Dec 18, 2017 PADMA LONG [facility] External hemorrhoids without mention of complication (ICD-9- CM 455.3) Inactive 455.3 Dec 18, 2017 PADMA LONG [facility] Impotence of organic origin (ICD-9-CM 607.84) Inactive 607.84 Dec 18, 2017 PADMA LONG [facility] Screening for Lipoid disorders (ICD-9-CM V77.91) Inactive V77.91 Jan 18, [address] [facility] Stye * (ICD-9-CM 373.11) Inactive 373.11 Dec 18, 201 8 Jan 18, 2007 Entered By: PADMA LONG Comment: bilat lower lids, chronic/recurrent PADMA LONG [facility] Tobacco Use Disorder, Continuous Inactive 305.1 Dec 18, 2017 Jan 18, 2007 Entered By: PADMA LONG Comment: one ppd PADMA LONG [facility] Radiology Reports: +/- 30 days [...] EXP COSIGNER: URGENCY: STATUS: COMPLETED Jinny from [facility] called and stated this p/t may be late by 20 minutes to his appointment. Notfied the [place] about it. And she stated they could work him in , that he may have to wait. They will work him in between p/ts /es/ HUBERT GUZMAN msa Signed: 01/22/2019 14:12 HUBERT GUZMAN [facility]
--- OUTSIDE RECORDS SUMMARY | 2019-12-02 13:04 | XMS REPORT | Encounter Summary ---
Author Author [facility] Address [address] [place] [address] Phone Unavailable Care Team Providers Care Crop Roller Name Role Phone ADRIEL HERNANDEZ PCP Unavailable Insurance Providers: All historical and current No Data Provided for This Section Selected Encounter This section includes the information on record at [place] for the Encounter. Date/Time Encounter Type Encounter Description Reason Provider Source Mar 21, 2019 10:28 AM Outpatient Encounter ADMIN PAT ACTIVTIES (NOELLE NCT) ARTUR BLAS [facility] IHE Encounter Template Text not [...] AMBULATORY - NONE ARTUR BLAS [facility] Apr 03, 2019 10:00 AM AMBULATORY - SURGERY ARTUR BLAS [facility] Apr 14, 2019 10:00 AM AMBULATORY - SURGERY [facility] Apr 28, 2019 11:00 AM [facility] Jun 25, 2019 11:30 AM AMBULATORY - NONE ARTUR BLAS [facility] Jun 25, 2019 01:15 PM AMBULATORY - MEDICINE ARTUR BLAS [facility] Jul 23, 2019 11:00 AM AMBULATORY - NONE ARTUR BLAS [facility] Jul 25, 2019 08:00 AM AMBULATORY - NONE ARTUR BLAS [facility] Aug 07, 2019 10:30 AM AMBULATORY - MEDICINE ARTUR BLAS [facility] Active, Pending, and Scheduled Orders This section [...] the Encounter. The data comes from all [place] treatment facilities. Test Date/Time Test Type Test Details Facility Name Apr 01, 2019 10:33 AM Consult Order [facility] [id number] Cons Professor Of Communication And Writing's Choice [facility] Surgical Procedures: All associated to the encounter No Data Provided for This Section Lab Results: +/- 30 days of the encounter This section includes the Chemistry and Hematology Lab R esults on record with [place] for the patient. Radiology Reports and Pathology Report s are provided separately, in subsequent sections. Lab Results This section contains the Chemistry/Hematology Results usha t were resulted 30 days before or 30 days after the date of the Encounter. Date/Time Source Result Type Result - Unit Interpretation Reference Range Comment Mar 21, 2019 08:55 AM [facility] HEMOGLOBIN A1C Specimen Type: BLOOD No [...] and tobacco- related health factors from the [place] facility where the Encounter took place. Current Smoking Status This section includes the most current smoking, or tobacco -related health factor, from the [place] facility where the Encounter took place. Date/Time Current Smoking Status Comment Facility Jun 26, 2018 02:13 PM VA-TOBACCO QUIT 15 YRS OR MORE PORSHA BLAS [facility] Tobacco Use History This section includes a history of the smoking, or tobacco -related health factors, that were collected on or before the date of the Encoun ter. The data comes from the [place] facility where the Encounter took place. Date/Time Smoking Status/Tobacco Use Comment Josseline avina Jun 26, 2018 02:13 PM VA-TOBACCO QUIT 15 YRS OR MORE PORSHA BLAS [facility] Jun 27, 2017 01:39 PM NON-TOBACCO [...] patient. The data comes from a ll [place] treatment facilities. It does not list Allergies/ADRs that were removed or entered in error. Some allergies/ADRs may be reported in t Immunization section. Allergen Event Date Event Type Reaction(s) Severity Source [place] September 08, 2014 Propensity to adverse reactions to drug (diso rder) [facility], [facility] 15 [place] September 08, 2014 Propensity to adverse reactions to drug (diso rder) [facility] Medications: VA dispensed (-15 months) and Non-VA Documented (Obtained Outside V A) Section Date Range: 1) prescriptions processed by a VA pharmacy in the last 15 m [facility], and 2) all medications recorded in the VA medical record as "non-VA medic ations". Pharmacy terms refer to [place] pharmacy's work on prescriptions. VA patient s [...] may be a prescription from either the [place] or other providers that was filled outside [...] TEST BLOOD GLUCOSE 50 Dec 19, 2019 [id number] September 04, 2019 PAMELA RAMSEY ACCU-CHEK CHARLES PLUS (GLUCOSE) TEST STRIP Discontinued USE 1 STRIP FOR TESTING TWO TIMES PER WEEK - DIRECTED TO TEST BLOOD GLUCOSE 50 Jul 25, 2019 [id number] Nov 12, 2018 PAMELA RAMSEY ALBUTEROL SO4 90MCG/ACTUAT (CFC-F) INHL,ORAL,6.7GM Active INHALE 2 PUFFS BY ORAL INHALATION EVERY 4 HOURS NEEDED FOR BREATHING. SHAKE WELL. RINSE MOUTHPIECE FREQUENTLY TO PREVENT CLOGGING. USE NEEDED FOR SHORTNESS OF AIR/WHEEZING FOR BREATHING. SHAKE WELL. RINSE MOUTHPIECE FREQUENTLY TO PREVENT CLOGGING. USE NEEDED FOR SHORTNESS OF AIR/WHEEZING Dec 19, 2019 [id number] September 04, 2019 PAMELA RAMSEY ALCOHOL PREP PAD Active USE 1 PAD ON SKIN BIW TO CLEAN AND DISINFECT THE SKIN 200 Sep 29, 2020 [id number] Sep 30, 2019 CHUCHO,MAURICIO [facility] ALCOHOL PREP PAD Discontinued USE 1 PAD ON SKIN BI W TO CLEAN AND DISINFECT THE SKIN 200 Dec 19, 2019 [id number] Jun 06, 2019 BRAULIOPAMELA [facility] ALCOHOL PREP PAD Discontinued USE 1 PAD ON SKIN BI W TO CLEAN AND DISINFECT THE SKIN 200 Jul 25, 2019 [id number] Nov 12, 2018 PAMELA RAMSEY [facility] ASCORBIC ACID 250MG TAB Non-VA TAKE ONE TABLET BY MOUTH ONCE A DAY Non-VA Documented by: SHANIQUA SCHMIDT nted at: [facility] ASPIRIN 25MG/DIPYRIDAMOLE 200MG CAP,SA Active T CHAPIN 1 CAPSULE BY MOUTH TWO TIMES A DAY - SWALLOW WHOLE. DO NOT CRUSH OR CHEW. FOR RECURRENT TIA/STROKE 180 Dec 19, 2019 [id number] Dec 20, 2018 PAMELA RAMSEY [facility] ASPIRIN 25MG/DIPYRIDAMOLE 200MG CAP,SA Discontinued T CHAPIN 1 CAPSULE BY MOUTH TWO TIMES A DAY - SWALLOW WHOLE. DO NOT CRUSH OR CHEW. FOR RECURRENT TIA/STROKE 180 Feb 06, 2019 [id number] Sep 28, 2018 ZACHARY [facility] ASPIRIN 81MG TAB,EC Non- [place] TAKE ONE TABLET BY MOUTH ONCE A DAY Non-VA Documented by: PADMA LONG nted at: [facility] ATORVASTATIN CA 80MG TAB Active TAKE ONE TABLET BY MOUTH AT BEDTIME FOR CHOLESTEROL - REPORT ANY UNEXPLAINED MUSCLE PAIN/WEAKNESS TO YOUR PROVIDER 90 Dec 19, 2019 [id number] September 04, 2019 PAMELA RAMSEY [facility] ATORVASTATIN CA 80MG TAB Discontinued TAKE ONE TABLET BY MOUTH AT BEDTIME FOR CHOLESTEROL - REPORT ANY UNEXPLAINED MUSCLE PAIN/WEAKNESS TO YOUR PROVIDER 90 Dec 20, 2018 [id number] Nov 12, 2018 PAMELA RAMSEY [facility] BUDESONIDE 160MCG/FORMOTEROL FUM 4.5MCG/SPRAY INHL,ORAL,10.2 GM Active INHALE 2 PUFFS BY MOUTH TWO TIMES A DAY FOR BREATHING. SHAKE WELL. RINSE MOUTH AND SPIT AFTER EACH USE. 3 Apr 24, 2020 [id number] August 22, 2019 LISSA OATES [facility] CALCIUM/VITAMIN D TAB No n-VA TAKE BY MOUTH ONCE A DAY Non-V A Documented by: PADMA LONG nted at: [facility] CARBOXYMETHYLCELLULOSE NA 0.5% SOLN,OPH Active INSTILL ONE DROP IN BOTH EYES FOUR TIMES A DAY FOR DRY EYES Feb 01, 2020 [id number] September 03 0 [facility] DICLOFENAC NA 1% GEL,TOP Discontinued APPLY 2 GRAMS A FFECTED AREA TWO TIMES A DAY NEEDED FOR PAIN AND INFLAMMATION. DO NOT EXCEED 16GM DAILY TO ANY AFFECTED JOINT OF LOWER EXTREMITIES. DO NOT EXCEED 8GM DAILY TO ANY AFFECTED JOINT OF UPPER EXTREMITES. DO NOT EXCEED TOTAL DOSE OF 32GM DAILY FOR ALL JOINTS. 100 Oct 31, 2018 [id number] Oct 06, 2018 ANAYELI KIRKPATRICK [facility] DICLOFENAC NA 1% GEL,TOP APPLY 2 GRAMS A FFECTED AREA TWO TIMES A DAY NEEDED FOR PAIN AND INFLAMMATION. DO NOT EXCEED 16GM DAILY TO ANY AFFECTED JOINT OF LOWER EXTREMITIES. DO NOT EXCEED 8GM DAILY TO ANY AFFECTED JOINT OF UPPER EXTREMITES. DO NOT EXCEED TOTAL DOSE OF 32GM DAILY FOR ALL JOINTS. 100 Jan 17, 2019 [id number] Dec 20, 2018 PAMELA RAMSEY FLUTICASONE PROPIONATE 50MCG/SPRAY SOLN,NASAL,16GM Active INSTILL 1 SPRAY IN EACH NOSTRIL ONCE A DAY SHAKE GENTLY BEFORE USE! - MUST BE USED DIRECTED FOR 3 WEEKS TO PROVIDE BENEFIT. * NO EARLY REFILLS * 1UNIT = 30DAYS AT 4 PF/DAY OR 60DAYS AT 2PF/DAY 2 Dec 19, 2019 [id number] August 26, 2019 PAMELA RAMSEY KETOTIFEN 0.025% SOLN,OPH Active INSTILL 1 DROP IN BOTH EYES TWO TIMES A DAY FOR RELIEF OF ALLERGY SYMPTOMS IN EYE(S) Feb 01, 2020 [id number] September 04, 2019 [facility] LANCET,SOFTCLIX Active USE LANCET BIW FOR TESTING BL OOD GLUCOSE DIRECTED Sep 29, 2020 [id number] Sep 30, 2019 MAURICIO RANKIN LANCET,SOFTCLIX Discontinued USE LANCET BIW FO R TESTING BLOOD GLUCOSE DIRECTED Dec 19, 2019 [id number] Jun 06, 2019 [facility] LANCET,SOFTCLIX Discontinued USE LANCET BIW FO R TESTING BLOOD GLUCOSE DIRECTED 100 Jul 25, 2019 [id number] Nov 12, 2018 PAMELA RAMSEY LISINOPRIL 40MG TAB Non- [place] TAKE ONE-HALF TABLET BY MOUTH EVERY MORNING Non-VA Documented by: PAMELA RAMSEY nted at: [facility] LORATADINE/PSEUDOEPHEDRINE TAB,SA Non-VA TAKE BY MOUTH No n-[place] Documented by: JUAN LANG Docume nted at: ARTUR BLAS [facility] MAGNESIUM OXIDE 400MG TAB Non-VA [...] ACID (REPLACES ACIPHEX) 180 Dec 19, 2019 [id number] August 26, 2019 PAMELA RAMSEY POLYETHYLENE GLYCOL [...] Non-VA Documented by: KATHERINE MATT nted at: [facility] PREGABALIN 150MG CAP,ORAL Non-VA TAKE 1 CAPSULE BY MOUTH TWO TIMES A DAY Non-[place] Docume nted by: PAMELA RAMSEY nted at: [facility] SEMAGLUTIDE INJ,SOLN Non -VA INJECT SUBCUTANEOUSLY EVERY WEEK Non-VA Documented by: ANAYELI KIRKPATRICKume nted at: ARTUR BLAS [facility] TERBINAFINE HCL 1% CREAM,TOP Active APPLY LIGHT LY TO AFFECTED AREA TWO TIMES A DAY FOR INFECTION 90 Sep 23, 2020 [id number] Sep 24, 2019 ADRIEL HERNANDEZ CBGUILLERMO UREA 20% CREAM,TOP Active APPLY LIGHTLY (20%) TO AFFECTED AREA TWO TIMES A DAY NEEDED TO PROMOTE HEALING,RUB IN UNTIL COMPLETELY ABSORBED*FOR TOPICAL USE ONLY* APPLY TO BOTH FEET DIRECTED. 90 Sep 25, 2020 [id number] Sep 26, 2019 ADRIEL HERNANDEZ Problems (Conditions): [...] Alcohol intake above recommended sensible limits Active 470661880 PADMA LONG [facility] Allergic conjunctivitis Active 660704607 ALMANEDA [facility] Bilateral senile combined form cataracts of eyes Active 67132020712 9108 ALMANEDA [facility] Bilateral tinnitus Active 5247232069130 CHASTITY JEAN [facility] Coronary arteriosclerosis Active 02647736 September 08, 2014 Entered By: PADMA LONG Comment: hx of ptca to RCA several yrs. agoSeptember 08, 2014 Entered By: PADMA LONG Comment: heart cath 09/01/14, neg. / previous stent to RCA,, [place] HATCHER, JENNEY R [facility] Diabetes mellitus Active 82329803 PAMELA RAMSEY [facility] Disorder of pancreas Active 4900808 September 08, 2014 Entered By: PADMA LONG Comment: 2.5cm low density lseion in bodyMay 2014 Entered By: PADMA LONG Comment: question of communication with pancreatic ductMa2014 Entered By: PADMA LONG Comment: favored to be cystic pancreatic cancerSeptember 08, 2014 Entered By: PADMA LONG Comment: per abdominal CT 09/01/14, [place] PADMA LONG [facility] Dry eyes Active 522348441 NEDA SHAW [facility] Gastro-esophageal reflux disease without esophagitis ( SNOMED CT 211978721) Active 278535046 ALF GUEVARA [facility] History of malignant neoplasm of lung Active 809659668 CHAPO BARRETO [facility] Hyperlipidemia (SNOMED CT 14287716) Active 44153481 PAMELA RAMSEY [facility] Lung mass Active 953848398 September 08, 2014 E ntered By: PADMA LONG Comment: 4.5 cm mass, post. segment right upper lobe.September 08, 2014 Entered By: PADMA LONG Comment: mild adenopathy in mediastinum and bilat. hilaMa2014 Entered By: PADMA LONG Comment: most likely related to lung cancerMa2014 Entered By: PADMA LONG Comment: per ct angio of chest with contrast 09/01/14,[place] Entered By: PADMA LONG Comment: per path report- mod. differentiated bronchogenic adenoca. 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 Active 66405458 KATHERINE MATT [facility] Obesity Active 661222020 [place] Juan M [facility] Obstructive sleep apnea syndrome (SNOMED CT 35928393) Active 126984 015 PHILIPPE DOUGLASS [facility] Pancreatic cyst Active 43500647 JAYLENE GUEVARA [facility] Papilloma of right eyelid Active 568313453577453 NEDA SHAW [facility] Polyp of colon Active 72109607 Jan 23 16 Entered By: PADMA LONG Comment: c-scope 01/17/16, multiple benign colonic polypsJun 28, 2017 Entered By: PADMA LONG Comment: c-scope,06/25/17,[facility] [place], three benign polyps- sigmoid colon, transverse colon,cecum. see path report cprs SHARRON TORRES [place] [facility] Pulmonary emphysema Active 15623321 0 BRIANA LESLYE [place] [facility] Sensorineural hearing loss, bilateral Active 759846293 CHASTITY JEAN ARTUR LONG [facility] Snoring Active 72692601 ARASONG SIDDIQUI [facility] Type 2 diabetes mellitus without complication Active 548779056 NEDA SHAW [facility] Environmental Allergies (ICD-9-CM 477.9) Inactive 477.9 Dec 18, 2017 [facility] External hemorrhoids without mention of complication (ICD-9- CM 455.3) Inactive 455.3 Dec 18, 2017 [facility]ADMA LONG Juan [facility] Impotence of organic origin (ICD-9-CM 607.84) Inactive 607.84 Dec 18, 2017 [facility] Screening for Lipoid disorders (ICD-9-CM V77.91) Inactive V77.91 Jan 18, 2007 [facility] Stye * (ICD-9-CM 373.11) Inactive 373.11 Dec 18, 8 Jan 18, 2007 Entered By: PADMA LONG Comment: bilat lower lids, chronic/recurrent PADMA LONG [facility] Tobacco Use Disorder, Continuous Inactive 305.1 Dec 18, 2017 Jan 18, 2007 Entered By: PADMA LONG Comment: one ppd PADMA LONG [facility] Radiology Reports: +/- 30 days [...] 11:11) Microscopic examination is performed. DIAGNOSIS: Specimen: [id number] Spec Type: SURGICAL Abdulkadir: 04/03/19 Rec: 04/03/19-1241 PATHOLOGIC DIAGNOSIS Skin lesion, right upper cheek, biopsy: 1. Seborrheic keratosis, not involving resection margins. 2. Solar elastosis. Skin lesion, right lower mid margin, biopsy: 1. Seborrheic keratosis, with tumor at tissue edge/margin, but with benign features. LL COPIES TO: KATHEIRNE MATT [facility] PATHOLOGIST CODES: 32379/2 at 1235 The gross and microscopic examinations and interpretation were performed at [facility] Department of Pathology, [address] [place] [address]. Slides and paraffin blocks are on file at [facility]. =--=--=--=--=--=--=--=--=--=--=--=--=--=--=--=--=--=--=--=--=--=--=--=--=--=-- Performing Laboratory: Surgical Pathology Report Performed By: [facility] [CLIA# [id number]] [facility] [place] [address] [facility] 15 Encounter Notes: All associated encounter notes This section contains the clinical notes associated to the Encounter. Date/Time Encounter Note(s) Provider Source Mar 21, 2019 10:28 AM ADMINISTRATIVE NOTE: LOCAL TITLE: GA-ADMIN [facility] STANDARD TITLE: ADMINISTRATIVE NOTE DATE OF NOTE: MAR 21, 2019@10:28 ENTRY DATE: MAR 21, 2019@10:28:57 AUTHOR: MARYURI REICH EXP COSIGNER: URGENCY: STATUS: COM[facility]/10/2019. Letter sent to address on record. /gisell/ MARYURI REICH Signed: 03/21/2019 10:32 MARYURI REICH [facility]
--- OUTSIDE RECORDS SUMMARY | 2019-12-02 13:05 | XMS REPORT | Encounter Summary ---
Author Author [facility] Address [address] [place] [address] Phone Unavailable Care Team Providers Care Priest Name Role Phone ADRIEL HERNANDEZ PCP Unavailable Insurance Providers: All historical and current No Data Provided for This Section Selected Encounter This section includes the information on record at [place] for the Encounter. Date/Time Encounter Type Encounter Description Reason Provider Source Sep 22, 2019 04:13 PM Outpatient Encounter ADMIN PAT ACTIVTIES (MAS NONCT) ADRIEL HERNANDEZ [facility] IHE Encounter Template Text not [...] 2019 11:30 AM AMBULATORY - MEDICINE [place] [facility] Oct 07, 2019 09:15 AM AMBULATORY - NONE [facility] 15 Dec 31, 2019 11:00 AM AMBULATORY - NONE [facility] BLAS [facility] Dec 31, 2019 01:15 PM AMBULATORY - MEDICINE ARTUR BLAS [facility] Dec 31, 2019 01:16 PM AMBULATORY - MEDICINE [facility] BLAS [facility] Jan 01, 2020 09:00 AM AMBULATORY - MEDICINE ARTUR BLAS [facility] Jan 07, 2020 12:00 PM AMBULATORY - MEDICINE [place] [facility] Jan 27, 2020 01:00 PM AMBULATORY - MEDICINE [facility] Surgical Procedures: All associated to the [...] Negative Negative Sep 23, 2019 10:56 AM [employer] [facility] MICROALBUMIN ([place],W[place]) RANDO M URINE Specimen Type: URINE Comment: Microalbumin is below the linearity of the instrument, unable to calculate the albumin/creatinine ratio. *MICROALBUMIN,RAND < 5 ug/mL *MICROALB/CREAT canc mcg/mg cr *UR PROTEIN < 6.8 mg/dL *UR CREATININE 37.4 mg/dL Not Available Sep 23, 2019 10:56 AM [employer] [facility] COMPREHENSIVE METABOLIC PA KELLE Specimen Type: [...] >60 Sep 23, 2019 10:56 AM [place] [facility] CBC & DIFF Specimen Type: BLOOD [...] QUIT 15 YRS OR MORE PORSHA BLAS [facility] Tobacco Use History This section includes a history of the smoking, or tobacco -related health factors, that were collected on or before the date of the Encoun ter. The data comes from the [place] facility where the Encounter took place. Date/Time Smoking Status/Tobacco Use Comment [facility] Jun 26, 2018 02:13 PM VA-TOBACCO QUIT 15 YRS OR MORE PORSHA BLAS [facility] Jun 27, 2017 01:39 PM NON-TOBACCO USER ARTUR Mi Jun 27, 2017 01:16 PM NON-TOBACCO USER [facility] [place] Jan 06, 2015 02:07 PM NON-TOBACCO USER [facility] Nov 23, 2014 10:38 AM NON-TOBACCO USER [facility] [place] Oct 26, 2014 10:36 AM NON-TOBACCO USER [facility]UR BLAS [facility] Oct 14, 2014 11:09 AM NON-TOBACCO USER ARTUR BLAS [facility] C Advance Directives: All historical [...] to adverse reactions to drug (diso rder) [facility] [place] September 08, 2014 Propensity to adverse reactions to drug (diso rder) [facility] Medications: VA dispensed (-15 months) and Non-VA Documented (Obtained Outside A) Section Date Range: 1) prescriptions processed by a [facility] pharmacy in the last 15 m [facility], and 2) all medications recorded in [...] TEST BLOOD GLUCOSE 50 Dec 19, 2019 [id number] September 04, 2019 PAMELA RAMSEY ACCU-CHEK CHARLES PLUS (GLUCOSE) TEST STRIP Discontinued USE 1 STRIP FOR TESTING TWO TIMES PER WEEK - DIRECTED TO TEST BLOOD GLUCOSE 50 Jul 25, 2019 [id number] Nov 12, 2018 PAMELA RAMSEY ALBUTEROL SO4 90MCG/ACTUAT (CFC-F) INHL,ORAL,6.7GM Active INHALE 2 PUFFS BY ORAL INHALATION EVERY 4 HOURS NEEDED FOR BREATHING. SHAKE WELL. RINSE MOUTHPIECE FREQUENTLY TO PREVENT CLOGGING. USE NEEDED FOR SHORTNESS OF AIR/WHEEZING FOR BREATHING. SHAKE WELL. RINSE MOUTHPIECE FREQUENTLY TO PREVENT CLOGGING. USE NEEDED FOR SHORTNESS OF AIR/WHEEZING 1 Dec 19, 2019 [id number] September 04, 2019 PAMELA RAMSEY ALCOHOL PREP PAD Active USE 1 PAD ON SKIN BIW TO CLEAN AND DISINFECT THE SKIN 200 Sep 29, 2020 [id number] Sep 30, 2019 CHU[facility]URICI[facility] ALCOHOL PREP PAD Discontinued USE 1 PAD ON SKIN BI W TO CLEAN AND DISINFECT THE SKIN 200 Dec 19, 2019 [id number] Jun 06, 2019 PAMELA RAMSEY ALCOHOL PREP PAD Discontinued USE 1 PAD ON SKIN BI W TO CLEAN AND DISINFECT THE SKIN 200 Jul 25, 2019 [id number] Nov 12, 2018 PAMELA RAMSEY ASCORBIC ACID 250MG TAB Non-VA TAKE ONE TABLET BY MOUTH ONCE A DAY Non-VA Documented by: SHANIQUA SCHMIDT nted at: [facility] ASPIRIN 25MG/DIPYRIDAMOLE 200MG CAP,SA Active T CHAPIN 1 CAPSULE BY MOUTH TWO TIMES A DAY - SWALLOW WHOLE. DO NOT CRUSH OR CHEW. FOR RECURRENT TIA/STROKE 180 Dec 19, 2019 [id number] Dec 20, 2018 PAMELA RAMSEY ASPIRIN 25MG/DIPYRIDAMOLE 200MG CAP,SA Discontinued T CHAPIN 1 CAPSULE BY MOUTH TWO TIMES A DAY - SWALLOW WHOLE. DO NOT CRUSH OR CHEW. FOR RECURRENT TIA/STROKE 180 Feb 06, 2019 [id number] Sep 28, 2018 ZACHARY GRECO [facility] ASPIRIN 81MG TAB,EC Non- VA TAKE ONE TABLET BY MOUTH ONCE A DAY Non-VA Documented by: PADMA LONG nted at: [facility] ATORVASTATIN CA 80MG TAB Active TAKE ONE TABLET BY MOUTH AT BEDTIME FOR CHOLESTEROL - REPORT ANY UNEXPLAINED MUSCLE PAIN/WEAKNESS TO YOUR PROVIDER 90 Dec 19, 2019 [id number] September 04, 2019 PAMELA RAMSEY ATORVASTATIN CA 80MG TAB Discontinued TAKE ONE TABLET BY MOUTH AT BEDTIME FOR CHOLESTEROL - REPORT ANY UNEXPLAINED MUSCLE PAIN/WEAKNESS TO YOUR PROVIDER 90 Dec 20, 2018 [id number] Nov 12, 2018 PAMELA RAMSEY BUDESONIDE 160MCG/FORMOTEROL FUM 4.5MCG/SPRAY INHL,ORAL,10.2 GM Active INHALE 2 PUFFS BY MOUTH TWO TIMES A DAY FOR BREATHING. SHAKE WELL. RINSE MOUTH AND SPIT AFTER EACH USE. 3 Apr 24, 2020 [id number] August 22, 2019 LISSA OATES [facility] CALCIUM/VITAMIN D TAB No n-VA TAKE BY MOUTH ONCE A DAY Non-V A Documented by: PADMA LONG nted at: [facility] CARBOXYMETHYLCELLULOSE NA 0.5% SOLN,OPH Active INSTILL ONE DROP IN BOTH EYES FOUR TIMES A DAY FOR DRY EYES 15 Feb 01, 2020 [id number] September 03 0 [facility] [...] FOR ALL JOINTS. 100 Oct 31, 2018 [id number] Oct 06, 2018 ANAYELI KIRKPATRICK [facility] DICLOFENAC NA 1% GEL,TOP APPLY 2 GRAMS A FFECTED AREA TWO TIMES A DAY NEEDED FOR PAIN AND INFLAMMATION. DO NOT EXCEED 16GM DAILY TO ANY AFFECTED JOINT OF LOWER EXTREMITIES. DO NOT EXCEED 8GM DAILY TO ANY AFFECTED JOINT OF UPPER EXTREMITES. DO NOT EXCEED TOTAL DOSE OF 32GM DAILY FOR ALL JOINTS. 100 Jan 17, 2019 [id number] Dec 20, 2018 PAMELA RAMSEY FLUTICASONE PROPIONATE 50MCG/SPRAY SOLN,NASAL,16GM Active INSTILL 1 SPRAY IN EACH NOSTRIL ONCE A DAY SHAKE GENTLY BEFORE USE! - MUST BE USED DIRECTED FOR 3 WEEKS TO PROVIDE BENEFIT. * NO EARLY REFILLS * 1UNIT = 30DAYS AT 4 PF/DAY OR 60DAYS AT 2PF/DAY 2 Dec 19, 2019 [id number] August 26, 2019 PAMELA RAMSEY KETOTIFEN 0.025% SOLN,OPH Active INSTILL 1 DROP IN BOTH EYES TWO TIMES A DAY FOR RELIEF OF ALLERGY SYMPTOMS IN EYE(S) Feb 01, 2020 [id number] September 04, 2019 [facility] LANCET,SOFTCLIX Active USE LANCET BIW FOR TESTING BL OOD GLUCOSE DIRECTED Sep 29, 2020 [id number] Sep 30, 2019 MAURICIO RANKIN LANCET,SOFTCLIX Discontinued USE LANCET BIW FO R TESTING BLOOD GLUCOSE DIRECTED Dec 19, 2019 [id number] Jun 06, 2019 PAMELA RAMSEY LANCET,SOFTCLIX Discontinued USE LANCET BIW FO R TESTING BLOOD GLUCOSE DIRECTED Jul 25, 2019 [id number] Nov 12, 2018 PAMELA RAMSEY LISINOPRIL 40MG TAB Non- VA TAKE ONE-HALF TABLET BY MOUTH EVERY MORNING Non-VA Documented by: PAMELA RAMSEY nted at: [facility] LORATADINE/PSEUDOEPHEDRINE TAB,SA Non-VA TAKE BY MOUTH No n-VA Documented by: JUAN LANG nted at: ARTUR BLAS [facility] MAGNESIUM OXIDE 400MG TAB Non-VA [...] ACID (REPLACES ACIPHEX) 180 Dec 19, 2019 [id number] August 26, 2019 PAMELA RAMSEY POLYETHYLENE GLYCOL [...] Documented by: KATHERINE MATT Docume nted at: [facility] PREGABALIN 150MG CAP,ORAL Non-VA TAKE 1 CAPSULE BY MOUTH TWO TIMES A DAY Non-VA Docume nted by: PAMELA RAMSEY Docume nted at: [facility] SEMAGLUTIDE INJ,SOLN Non -VA INJECT SUBCUTANEOUSLY EVERY WEEK Non-VA Documented by: ANAYELI KIRKPATRICK Docume nted at: ARTUR BLAS [facility] TERBINAFINE HCL 1% CREAM,TOP Active APPLY LIGHT LY TO AFFECTED AREA TWO TIMES A DAY FOR INFECTION 90 Sep 23, 2020 [id number] Sep 24, 2019 ADRIEL HERNANDEZ UREA 20% CREAM,TOP Active APPLY LIGHTLY (20%) TO AFFECTED AREA TWO TIMES A DAY NEEDED TO PROMOTE HEALING,RUB IN UNTIL COMPLETELY ABSORBED*FOR TOPICAL USE ONLY* APPLY TO BOTH FEET DIRECTED. 90 Sep 25, 2020 [id number] Sep 26, 2019 ADRIEL HERNANDEZ Problems (Conditions): [...] Alcohol intake above recommended sensible limits Active 882010951 PADMA LONG [facility] Allergic conjunctivitis Active 454609338 [facility] Bilateral senile combined form cataracts of eyes Active [id number] [address] [place] Luda [facility] Bilateral tinnitus Active [id number] BRIDGETTEMilaCHASTITY [facility] Coronary arteriosclerosis Active [id number] September 08, 2014 Entered By: PADMA LONG Comment: hx of ptca to RCA several yrs. agoSeptember 08, 2014 Entered By: PADMA LONG Comment: heart cath 09/01/14, neg. / previous stent to RCA,, via abida meneses ks HATCHER, JENNEY R [facility] Diabetes mellitus Active 86258100 PAMELA RAMSEY [facility] Disorder of pancreas Active 4921408 September 08, 2014 Entered By: PADMA LONG Comment: 2.5cm low density lseion in bodyMay 2014 Entered By: PADMA LONG Comment: question of communication with pancreatic ductMay 2014 Entered By: PADMA LONG Comment: favored to be cystic pancreatic cancerMay 2014 Entered By: PADMA LONG Comment: per abdominal CT 09/01/14, via abida meneses,PADMA Pradhan [facility] Dry eyes Active 039922811 [facility] Gastro-esophageal reflux disease without esophagitis ( SNOMED CT 165135837) Active 830042541 ALF GUEVARA [facility] History of malignant neoplasm of lung Active 840169197 CHAPO BARRETO [facility] Hyperlipidemia (SNOMED CT 13989662) Active 02102948 PAMELA RAMSEY [facility] Lung mass Active 178249822 September 08, 2014 E ntered By: PADMA [...] uncertain behavior of skin of eyelid Active 27166566 KATHERINE MATT [facility] Obesity Active 845489986 [facility] Obstructive sleep apnea syndrome (SNOMED CT 21063862) Active 332867 015 PHILIPPE DOUGLASS [facility] Pancreatic cyst Active 45159026 JAYLENE GUEVARA [facility] Papilloma of right eyelid Active [id number] [facility] Polyp of colon Active 64716084 Jan 23 Entered By: PADMA LONG Comment: c-scope 01/17/16, multiple benign colonic polypsJun 28, 2017 Entered By: PADMA LONG Comment: c-scope,06/25/17,[facility], three benign polyps- sigmoid colon, transverse colon,cecum. see path report cprs SHARRON TORRES [facility] Pulmonary emphysema Active 05015048 [address] [facility] Sensorineural hearing loss, bilateral Active 870663863 CHASTITY JEAN [facility] Snoring Active 29829216 SONG BULLOCK [facility] Type 2 diabetes mellitus without complication Active 416199536 [facility] Environmental Allergies (ICD-9-CM 477.9) Inactive 477.9 Dec 18, [address] [facility] External hemorrhoids without mention of complication (ICD-9- CM 455.3) Inactive 455.3 Dec 18, 2017 PADMA LONG [facility] Impotence of organic origin (ICD-9-CM 607.84) Inactive 607.84 Dec 18, 2017 PADMA LONG [facility] Screening for Lipoid disorders (ICD-9-CM V77.91) Inactive V77.91 Jan 18, 2007 PADMA LONG [facility] Stye * (ICD-9-CM 373.11) Inactive 373.11 Dec 18, 201 8 Jan 18, 2007 Entered By: PADMA LONG Comment: bilat lower lids, chronic/recurrent PADMA LONG [facility] Tobacco Use Disorder, Continuous Inactive 305.1 Dec 18, 2017 Jan 18, 2007 Entered By: PADMA LONG Comment: one ppd PADMA LONG [facility] Radiology Reports: +/- 30 days [...] BESSIE [place] Signed: 09/22/2019 16:14 BESSIE BOWERS [facility]
--- OUTSIDE RECORDS SUMMARY | 2019-12-02 13:05 | XMS REPORT | Encounter Summary ---
Author Author Department of [facility] Aff rsHERBERTH Organization [facility] Address [address] [place] [address] Phone Unavailable Care Team Providers Care Operations Scheduler Name Role Phone ADRIEL HERNANDEZ PCP Unavailable Insurance Providers: All historical and current No Data Provided for This Section Selected Encounter This section includes the information on record at ID for the Encounter. Date/Time Encounter Type Encounter Description Reason Provider Source Oct 07, 2019 09:31 AM Outpatient Encounter ADMIN PAT ACTIVTIES ([place] NCT) [facility] IHE Encounter Template Text not used by ID Assessments - Encounter Diagnoses No Data Provided [...] appointme nts. The data comes from all ID treatment facilities. Appointment Date/Time Appointment Type Appointment Facili ty Name Dec 31, 2019 11:00 AM AMBULATORY - NONE [facility] Dec 31, 2019 01:15 PM [facility]ULATORY - MEDICINE [facility] Dec 31, 2019 01:16 PM [facility]ULATORY - MEDICINE [facility] Jan 01, 2020 09:00 AM AMBULATORY - MEDICINE [facility] Jan 07, 2020 12:00 PM [facility]ORY [facility]ICINE [facility] Jan 27, 2020 01:00 PM AMBULATORY - MEDICINE MARLENE KEYS [facility] Mar 31, 2020 09:30 AM AMBULATORY - MEDICINE [facility] Mar 31, 2020 09:31 AM AMBULATORY - MEDICINE [facility] Mar 31, 2020 10:00 AM [facility]ATORY [facility] MEDICINE [facility] Mar 31, 2020 10:01 AM AMBULATORY - MEDICINE [facility] Apr 07, 2020 08:00 AM AMBULATORY - [...] the Encounter. The data comes from all ID treatment facilities. Test Date/Time Test Type Test Details Facility Name Nov 17, 2019 07:23 AM Consult Order [facility] [id number] Cons Accounting Analyst's Choice [facility] Surgical Procedures: All associated to [...] [id number] Sep 23, 2019 10:56 AM [facility] URINALYSIS Specimen Type: URINE No comment [...] 23, 2019 10:56 AM [facility] MICROALBUMIN ([place]) RANDO M URINE Specimen Type: URINE Comment: Microalbumin is below the linearity of the instrument, unable to calculate the albumin/creatinine ratio. *MICROALBUMIN,RAND < 5 ug/mL *MICROALB/CREAT canc mcg/mg cr *UR PROTEIN < 6.8 mg/dL *UR CREATININE 37.4 mg/dL Not Available Sep 23, 2019 10:56 AM [facility] COMPREHENSIVE METABOLIC PA KELLE Specimen Type: [...] to adverse reactions to drug (diso rder) [facility] 15 PLAVIX September 08, 2014 Propensity to adverse reactions to drug (diso rder) [facility] 15 Medications: [facility] dispensed (-15 months) and [...] other providers that was filled outside the ID. Or, it may be an over the [...] TEST BLOOD GLUCOSE 50 Dec 19, 2019 [id number] September 04, 2019 PAMELA RAMSEY ACCU-CHEK CHARLES PLUS (GLUCOSE) TEST STRIP Discontinued USE 1 STRIP FOR TESTING TWO TIMES PER WEEK - DIRECTED TO TEST BLOOD GLUCOSE 50 Jul 25, 2019 [id number] Nov 12, 2018 PAMELA RAMSEY ALBUTEROL SO4 90MCG/ACTUAT (CFC-F) INHL,ORAL,6.7GM Active INHALE 2 PUFFS BY ORAL INHALATION EVERY 4 HOURS NEEDED FOR BREATHING. SHAKE WELL. RINSE MOUTHPIECE FREQUENTLY TO PREVENT CLOGGING. USE NEEDED FOR SHORTNESS OF AIR/WHEEZING FOR BREATHING. SHAKE WELL. RINSE MOUTHPIECE FREQUENTLY TO PREVENT CLOGGING. USE NEEDED FOR SHORTNESS OF AIR/WHEEZING 1 Dec 19, 2019 [id number] September 04, 2019 [facility]SEY [facility] ALCOHOL PREP PAD Active USE 1 PAD ON SKIN BIW TO CLEAN AND DISINFECT THE SKIN Sep 29, 2020 [id number] Sep 30, 2019 MAURICIO RANKIN [facility] ALCOHOL PREP PAD Discontinued USE 1 PAD ON SKIN BI W TO CLEAN AND DISINFECT THE SKIN 200 Dec 19, 2019 [id number] Jun 06, 2019 [facility]ELA RAMSEY [facility] ALCOHOL PREP PAD Discontinued USE 1 PAD ON SKIN BI W TO CLEAN AND DISINFECT THE SKIN 200 Jul 25, 2019 [id number] Nov 12, 2018 [facility]ELA RAMSEY [facility] ASCORBIC ACID 250MG TAB Non-VA TAKE ONE TABLET BY MOUTH ONCE A DAY Non-VA Documented by: SHANIQUA SCHMIDT nted at: [facility] ASPIRIN 25MG/DIPYRIDAMOLE 200MG CAP,SA Active T CHAPIN 1 CAPSULE BY MOUTH TWO TIMES A DAY - SWALLOW WHOLE. DO NOT CRUSH OR CHEW. FOR RECURRENT TIA/STROKE 180 Dec 19, 2019 [id number] Dec 20, 2018 P[facility]ELA RAMSEY [facility] ASPIRIN 25MG/DIPYRIDAMOLE 200MG CAP,SA Discontinued T CHAPIN 1 CAPSULE BY MOUTH TWO TIMES A DAY - SWALLOW WHOLE. DO NOT CRUSH OR CHEW. FOR RECURRENT TIA/STROKE 180 Feb 06, 2019 [id number] Sep 28, 2018 ZACHARY GRECO [facility] ASPIRIN 81MG TAB,EC Non- [place] TAKE ONE TABLET BY MOUTH ONCE A DAY Non-VA Documented by: PADMA LONG nted at: [facility] ATORVASTATIN CA 80MG TAB Active TAKE ONE TABLET BY MOUTH AT BEDTIME FOR CHOLESTEROL - REPORT ANY UNEXPLAINED MUSCLE PAIN/WEAKNESS TO YOUR PROVIDER 90 Dec 19, 2019 [id number] September 04, 2019 PAMELA RAMSEY ATORVASTATIN CA 80MG TAB Discontinued TAKE ONE TABLET BY MOUTH AT BEDTIME FOR CHOLESTEROL - REPORT ANY UNEXPLAINED MUSCLE PAIN/WEAKNESS TO YOUR PROVIDER 90 Dec 20, 2018 [id number] Nov 12, 2018 PAMELA RAMSEY BUDESONIDE 160MCG/FORMOTEROL FUM 4.5MCG/SPRAY INHL,ORAL,10.2 GM Active INHALE 2 PUFFS BY MOUTH TWO TIMES A DAY FOR BREATHING. SHAKE WELL. RINSE MOUTH AND SPIT AFTER EACH USE. 3 Apr 24, 2020 [id number] August 22, 2019 LISSA OATES [facility] CALCIUM/VITAMIN D TAB No n-VA TAKE BY MOUTH ONCE A DAY Non-V A Documented by: PADMA LONG nted at: [facility] CARBOXYMETHYLCELLULOSE NA 0.5% SOLN,OPH Active INSTILL ONE DROP IN BOTH EYES FOUR TIMES A DAY FOR DRY EYES 15 Feb 01, 2020 [id number] September 03 0 [facility] [...] FOR ALL JOINTS. 100 Oct 31, 2018 [id number] Oct 06, 2018 ANAYELI KIRKPATRICK Luda Juan M BL[facility] DICLOFENAC NA 1% GEL,TOP APPLY 2 GRAMS A FFECTED AREA TWO TIMES A DAY NEEDED FOR PAIN AND INFLAMMATION. DO NOT EXCEED 16GM DAILY TO ANY AFFECTED JOINT OF LOWER EXTREMITIES. DO NOT EXCEED 8GM DAILY TO ANY AFFECTED JOINT OF UPPER EXTREMITES. DO NOT EXCEED TOTAL DOSE OF 32GM DAILY FOR ALL JOINTS. 100 Jan 17, 2019 [id number] Dec 20, 2018 PAMELA RAMSEY FLUTICASONE PROPIONATE 50MCG/SPRAY SOLN,NASAL,16GM Active INSTILL 1 SPRAY IN EACH NOSTRIL ONCE A DAY SHAKE GENTLY BEFORE USE! - MUST BE USED DIRECTED FOR 3 WEEKS TO PROVIDE BENEFIT. * NO EARLY REFILLS * 1UNIT = 30DAYS AT 4 PF/DAY OR 60DAYS AT 2PF/DAY 2 Dec 19, 2019 [id number] August 26, 2019 PAMELA RAMSEY KETOTIFEN 0.025% SOLN,OPH Active INSTILL 1 DROP IN BOTH EYES TWO TIMES A DAY FOR RELIEF OF ALLERGY SYMPTOMS IN EYE(S) Feb 01, 2020 [id number] September 04, [address] [facility] LANCET,SOFTCLIX Active USE LANCET BIW FOR TESTING BL OOD GLUCOSE DIRECTED Sep 29, 2020 [id number] Sep 30, 2019 MAURICIO RANKIN LANCET,SOFTCLIX Discontinued USE LANCET BIW FO R TESTING BLOOD GLUCOSE DIRECTED Dec 19, 2019 [id number] Jun 06, 2019 PAMELA RAMSEY LANCET,SOFTCLIX Discontinued USE LANCET BIW FO R TESTING BLOOD GLUCOSE DIRECTED Jul 25, 2019 [id number] Nov 12, 2018 PAMELA RAMSEY LISINOPRIL 40MG [...] ACID (REPLACES ACIPHEX) 180 Dec 19, 2019 [id number] August 26, 2019 PAMELA RAMSEY POLYETHYLENE GLYCOL [...] Non-VA Documented by: KATHERINE MATT nted at: [facility] PREGABALIN 150MG CAP,ORAL Non-VA TAKE [...] DAY FOR INFECTION 90 Sep 23, 2020 [id number] Sep 24, 2019 ADRIEL HERNANDEZ UREA 20% CREAM,TOP Active APPLY LIGHTLY (20%) TO AFFECTED AREA TWO TIMES A DAY NEEDED TO PROMOTE HEALING,RUB IN UNTIL COMPLETELY ABSORBED*FOR TOPICAL USE ONLY* APPLY TO BOTH FEET DIRECTED. 90 Sep 25, 2020 [id number] Sep 26, 2019 AD[facility]EL HERNANDEZ [facility] Problems [...] Alcohol intake above recommended sensible limits Active 828385844 PADMA LONG [facility] Allergic conjunctivitis Active 594854330 WINTER GARDENNEDA [facility] Bilateral senile combined form cataracts of eyes Active 60169838255 9108 WINTER GARDENNEDA [facility] Bilateral tinnitus Active 0589400617809 CHASTITY JEAN [facility] Coronary arteriosclerosis Active 41471326 September 08, 2014 Entered By: PADMA LONG Comment: hx of ptca to RCA several yrs. agoSeptember 08, 2014 Entered By: PADMA LONG Comment: heart cath 09/01/14, neg. / previous stent to RCA,, via abida menesesma KALA JONES [facility] Diabetes mellitus Active 08659551 PAMELA RAMSEY [facility] Disorder of pancreas Active 8697263 September 08, 2014 Entered By: PADMA LONG Comment: 2.5cm low density lseion in bodyMay 2014 Entered By: PADMA LONG Comment: question of communication with pancreatic ductMay 2014 Entered By: PADMA LONG Comment: favored to be cystic pancreatic cancerMa2014 Entered By: PADMA LONG Comment: per abdominal CT 09/01/14, via abida meneses,ma PADMA LONG [facility] Dry eyes Active 524403940 [facility] Gastro-esophageal reflux disease without esophagitis ( SNOMED CT 258950499) Active 779001067 ALF GUEVARA [facility] History of malignant neoplasm of lung Active 279467031 CHAPO BARRETO [facility] Hyperlipidemia (SNOMED CT 34999746) Active 63420300 PAMELA RAMSEY [facility] Lung mass Active 419512558 September 08, 2014 E ntered By: PADMA LONG Comment: 4.5 cm mass, post. segment right upper lobe.September 08, 2014 Entered By: PADMA LONG Comment: mild adenopathy in mediastinum and bilat. hilaMa2014 Entered By: PADMA LONG Comment: most likely related to lung cancerMa2014 Entered By: PADMA LONG Comment: per ct angio of chest with contrast 09/01/14,via [facility] 2014 Entered By: PADMA LONG Comment: per path report- mod. differentiated bronchogenic adenoca. 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 Active 95070486 KATHERINE MATT [facility] Obesity Active 945556388 [facility] Obstructive sleep apnea syndrome (SNOMED CT 23521226) Active 964359 015 [place] [facility] Pancreatic cyst Active 69495723 JAYLENE GUEVARA [facility] Papilloma of right eyelid Active [id number] NEDA SHAW [facility] Polyp of colon Active 74694943 Jan 23 16 Entered By: PADMA LONG Comment: c-scope 01/17/16, multiple benign colonic polypsJun 28, 2017 Entered By: PADMA LONG Comment: c-scope,06/25/17,[facility], three benign polyps- sigmoid colon, transverse colon,cecum. see path report cprs SHARRON TORRES [facility] Pulmonary emphysema Active 45767471 0 BRIANA LESLYE [facility] Sensorineural hearing loss, bilateral Active 967664534 CHASTITY JEAN [facility] Snoring Active 83249934 SONG BULLOCK [facility] Type 2 diabetes mellitus without complication Active 772275246 NEDA SHAW [facility] Environmental Allergies (ICD-9-CM 477.9) Inactive 477.9 Dec 18, 2017 [facility] External hemorrhoids without mention of complication (ICD-9- CM 455.3) Inactive 455.3 Dec 18, 2017 [facility] Impotence of organic origin (ICD-9-CM 607.84) Inactive 607.84 Dec 18, 2017 [facility] Screening for Lipoid disorders (ICD-9-CM V77.91) Inactive V77.91 Jan 18, 2007 [facility] Stye * (ICD-9-CM 373.11) Inactive 373.11 Dec 18, 201 8 Jan 18, 2007 Entered By: PADMA LONG Comment: bilat lower lids, chronic/recurrent [facility]ADMA LONG [facility] Tobacco Use Disorder, Continuous Inactive 305.1 Dec 18, 2017 Jan 18, 2007 Entered By: PADMA LONG Comment: one ppd PADMA LONG [facility] Radiology Reports: +/- 30 days of [...] Acknowledged By: * AWAITING SIGNATURE * SHANIQUA SCHMIDT,ADRIEL [facility]
--- OUTSIDE RECORDS SUMMARY | 2019-12-02 13:05 | XMS REPORT | Encounter Summary ---
Author Author [facility] Organization Department [facility] Address [address] [place] [address] Phone Unavailable Care Team Providers Care Relay Shop Supervisor Name Role Phone ADRIEL HERNANDEZ PCP Unavailable Insurance Providers: All historical and current No Data Provided for This Section Selected Encounter This section includes the information on record at [place] for the Encounter. Date/Time Encounter Type Encounter Description Reason Provider Source Sep 22, 2019 03:55 PM Outpatient Encounter ADMIN PAT ACTIVTIES (MASNO NCT) [facility] IHE Encounter Template Text not [...] 23, 2019 11:15 AM AMBULATORY - NONE [facility] Sep 23, 2019 11:30 AM [facility]ORY - MEDICINE [facility] Oct 07, 2019 09:15 AM AMBULATORY - NONE [facility] 15 Dec 31, 2019 11:00 AM AMBULATORY - NONE [facility] Dec 31, 2019 01:15 PM AMBULATORY - MEDICINE [facility] Dec 31, 2019 01:16 PM AMBULATORY - MEDICINE [facility] Jan 01, 2020 09:00 AM AMBULATORY - MEDICINE [facility] Jan 07, 2020 12:00 PM [facility] Jan 27, 2020 01:00 PM [facility]AT[facility] - MEDICINE [facility] Surgical Procedures: All associated to [...] Comment Sep 23, 2019 10:56 AM [facility] HEMOGLOBIN A1C Specimen Type: BLOOD No [...] Negative Sep 23, 2019 10:56 AM [facility] MICROALBUMIN ([place]) RANDO M URINE Specimen Type: URINE Comment: Microalbumin is below the linearity of the instrument, unable to calculate the albumin/creatinine ratio. *MICROALBUMIN,RAND < 5 ug/mL *MICROALB/CREAT canc mcg/mg cr *UR PROTEIN < 6.8 mg/dL *UR CREATININE 37.4 mg/dL Not Available Sep 23, 2019 10:56 AM [facility] COMPREHENSIVE METABOLIC PA KELLE Specimen [...] >60 Sep 23, 2019 10:56 AM [facility] CBC & DIFF Specimen Type: [...] place. Date/Time Smoking Status/Tobacco Use Comment [facility] Nov 23, 2017 09:51 AM CURRENT TOBACCO USER (READY TO QUIT) [facility] Nov 23, 2017 09:51 AM TOBACCO CESSATION REFERRAL DECLINED [facility] Nov 23, 2017 09:51 AM TOBACCO USER OFFERED MEDS [facility] Dec 18, 2016 08:55 AM NON-TOBACCO USER [facility] Dec 01, 2005 08:32 AM CURRENT NON-SMOKER [facility] Dec 01, 2005 08:32 [...] to adverse reactions to drug (diso rder) [facility] 15 PLAVIX September 08, 2014 Propensity to adverse reactions to drug (diso rder) [facility] 15 Medications: VA dispensed (-15 [...] TEST BLOOD GLUCOSE 50 Dec 19, 2019 [id number] September 04, 2019 PAMELA RAMSEY ACCU-CHEK CHARLES PLUS (GLUCOSE) TEST STRIP Discontinued USE 1 STRIP FOR TESTING TWO TIMES PER WEEK - DIRECTED TO TEST BLOOD GLUCOSE 50 Jul 25, 2019 [id number] Nov 12, 2018 PAMELA RAMSEY ALBUTEROL SO4 90MCG/ACTUAT (CFC-F) INHL,ORAL,6.7GM Active INHALE 2 PUFFS BY ORAL INHALATION EVERY 4 HOURS NEEDED FOR BREATHING. SHAKE WELL. RINSE MOUTHPIECE FREQUENTLY TO PREVENT CLOGGING. USE NEEDED FOR SHORTNESS OF AIR/WHEEZING FOR BREATHING. SHAKE WELL. RINSE MOUTHPIECE FREQUENTLY TO PREVENT CLOGGING. USE NEEDED FOR SHORTNESS OF AIR/WHEEZING 1 Dec 19, 2019 [id number] September 04, 2019 PAMELA RAMSEY [facility] ALCOHOL PREP PAD Active USE 1 PAD ON SKIN BIW TO CLEAN AND DISINFECT THE SKIN 200 Sep 29, 2020 [id number] Sep 30, 2019 CHUCHOPAMELLA FAUSTINLloyd [facility] ALCOHOL PREP PAD Discontinued USE 1 PAD ON SKIN BI W TO CLEAN AND DISINFECT THE SKIN 200 Dec 19, 2019 [id number] Jun 06, 2019 PAMELA RAMSEY ALCOHOL PREP PAD Discontinued USE 1 PAD ON SKIN BI W TO CLEAN AND DISINFECT THE SKIN 200 Jul 25, 2019 [id number] Nov 12, 2018 PAMELA RAMSEY ASCORBIC ACID 250MG TAB Non-VA TAKE ONE TABLET BY MOUTH ONCE A DAY Non-VA Documented by: SHANIQUA SCHMIDT nted at: [facility] ASPIRIN 25MG/DIPYRIDAMOLE 200MG CAP,SA Active T CHAPIN 1 CAPSULE BY MOUTH TWO TIMES A DAY - SWALLOW WHOLE. DO NOT CRUSH OR CHEW. FOR RECURRENT TIA/STROKE 180 Dec 19, 2019 [id number] Dec 20, 2018 PAMELA RAMSEY ASPIRIN 25MG/DIPYRIDAMOLE 200MG CAP,SA Discontinued T CHAPIN 1 CAPSULE BY MOUTH TWO TIMES A DAY - SWALLOW WHOLE. DO NOT CRUSH OR CHEW. FOR RECURRENT TIA/STROKE 180 Feb 06, 2019 [id number] Sep 28, 2018 ZACHARY GRECO [facility] ASPIRIN 81MG TAB,EC Non- VA TAKE ONE TABLET BY MOUTH ONCE A DAY Non-VA Documented by: PADMA LONG nted at: [facility] ATORVASTATIN CA 80MG TAB Active TAKE ONE TABLET BY MOUTH AT BEDTIME FOR CHOLESTEROL - REPORT ANY UNEXPLAINED MUSCLE PAIN/WEAKNESS TO YOUR PROVIDER 90 Dec 19, 2019 [id number] September 04, 2019 PAMELA RAMSEY ATORVASTATIN CA 80MG TAB Discontinued TAKE ONE TABLET BY MOUTH AT BEDTIME FOR CHOLESTEROL - REPORT ANY UNEXPLAINED MUSCLE PAIN/WEAKNESS TO YOUR PROVIDER 90 Dec 20, 2018 [id number] Nov 12, 2018 PAMELA RAMSEY BUDESONIDE 160MCG/FORMOTEROL FUM 4.5MCG/SPRAY INHL,ORAL,10.2 GM Active INHALE 2 PUFFS BY MOUTH TWO TIMES A DAY FOR BREATHING. SHAKE WELL. RINSE MOUTH AND SPIT AFTER EACH USE. 3 Apr 24, 2020 [id number] August 22, 2019 LISSA OATES [facility] CALCIUM/VITAMIN D TAB No n-VA TAKE BY MOUTH ONCE A DAY Non-V A Documented by: PADMA LONG nted at: [facility] CARBOXYMETHYLCELLULOSE NA 0.5% SOLN,OPH Active INSTILL ONE DROP IN BOTH EYES FOUR TIMES A DAY FOR DRY EYES 15 Feb 01, 2020 [id number] September 03 0 N[facility] SHAW [facility] [...] FOR ALL JOINTS. 100 Oct 31, 2018 [id number] Oct 06, 2018 ANAYELI KIRKPATRICK [facility] DICLOFENAC NA 1% GEL,TOP APPLY 2 GRAMS A FFECTED AREA TWO TIMES A DAY NEEDED FOR PAIN AND INFLAMMATION. DO NOT EXCEED 16GM DAILY TO ANY AFFECTED JOINT OF LOWER EXTREMITIES. DO NOT EXCEED 8GM DAILY TO ANY AFFECTED JOINT OF UPPER EXTREMITES. DO NOT EXCEED TOTAL DOSE OF 32GM DAILY FOR ALL JOINTS. 100 Jan 17, 2019 [id number] Dec 20, 2018 PAMELA RAMSEY FLUTICASONE PROPIONATE 50MCG/SPRAY SOLN,NASAL,16GM Active INSTILL 1 SPRAY IN EACH NOSTRIL ONCE A DAY SHAKE GENTLY BEFORE USE! - MUST BE USED DIRECTED FOR 3 WEEKS TO PROVIDE BENEFIT. * NO EARLY REFILLS * 1UNIT = 30DAYS AT 4 PF/DAY OR 60DAYS AT 2PF/DAY 2 Dec 19, 2019 [id number] August 26, 2019 PAMELA RAMSEY KETOTIFEN 0.025% SOLN,OPH Active INSTILL 1 DROP IN BOTH EYES TWO TIMES A DAY FOR RELIEF OF ALLERGY SYMPTOMS IN EYE(S) Feb 01, 2020 [id number] September 04, 2019 NEDA SHAW [facility] LANCET,SOFTCLIX Active USE LANCET BIW FOR TESTING BL OOD GLUCOSE DIRECTED 100 Sep 29, 2020 [id number] Sep 30, 2019 MAURICIO RANKIN CB LANCET,SOFTCLIX Discontinued USE LANCET BIW FO R TESTING BLOOD GLUCOSE DIRECTED 100 Dec 19, 2019 [id number] Jun 06, 2019 PAMELA RAMSEY LANCET,SOFTCLIX Discontinued USE LANCET BIW FO R TESTING BLOOD GLUCOSE DIRECTED Jul 25, 2019 [id number] Nov 12, 2018 PAMELA RAMSEY LISINOPRIL 40MG TAB Non- VA TAKE ONE-HALF TABLET BY MOUTH EVERY MORNING Non-VA Documented by: PAMELA RAMSEY nted at: [facility] LORATADINE/PSEUDOEPHEDRINE TAB,SA Non-VA TAKE BY MOUTH No n-VA Documented by: JUAN LANGume nted at: [facility] MAGNESIUM OXIDE 400MG TAB Non-VA TAKE ONE [...] ACID (REPLACES ACIPHEX) 180 Dec 19, 2019 [id number] August 26, 2019 PAMELA RAMSEY POLYETHYLENE GLYCOL [...] Documented by: KATHERINE MATT Docume nted at: [facility] PREGABALIN 150MG CAP,ORAL Non-VA TAKE 1 CAPSULE BY MOUTH TWO TIMES A DAY Non-VA Docume nted by: PAMELA RAMSEY Docume nted at: [facility] SEMAGLUTIDE INJ,SOLN Non -VA INJECT SUBCUTANEOUSLY EVERY WEEK Non-VA Documented by: ANAYELI KIRKPATRICK Docume nted at: [facility] TERBINAFINE HCL 1% CREAM,TOP Active APPLY LIGHT LY TO AFFECTED AREA TWO TIMES A DAY FOR INFECTION 90 Sep 23, 2020 [id number] Sep 24, 2019 ADRIEL HERNANDEZ UREA 20% CREAM,TOP Active APPLY LIGHTLY (20%) TO AFFECTED AREA TWO TIMES A DAY NEEDED TO PROMOTE HEALING,RUB IN UNTIL COMPLETELY ABSORBED*FOR TOPICAL USE ONLY* APPLY TO BOTH FEET DIRECTED. 90 Sep 25, 2020 [id number] Sep 26, 2019 ADRIEL HERNANDEZ Problems (Conditions): [...] Alcohol intake above recommended sensible limits Active 297868435 PADMA LONG [facility] Allergic conjunctivitis Active 743585342 ROYERSFORDFACUNDONEDA J [facility] Bilateral senile combined form cataracts of eyes Active 09204718522 9108 COLINFACUNDONEDA J [facility] Bilateral tinnitus Active 0656741336110 CHASTITY JEAN [facility] Coronary arteriosclerosis Active 43846612 September 08, 2014 Entered By: PADMA LONG Comment: hx of ptca to RCA several yrs. agoSeptember 08, 2014 Entered By: PADMA LONG Comment: heart cath 09/01/14, neg. / previous stent to RCA,, [facility]ONES [facility] Diabetes mellitus Active 61773709 PAMELA RAMSEY [facility] Disorder of pancreas Active 2634325 September 08, 2014 Entered By: PADMA LONG Comment: 2.5cm low density lseion in bodyMay 2014 Entered By: PADMA LONG Comment: question of communication with pancreatic ductMay 2014 Entered By: PADMA LONG Comment: favored to be cystic pancreatic cancerMay 2014 Entered By: PADMA LONG Comment: per abdominal CT 09/01/14, via abida meneses,az PADMA LONG [facility] Dry eyes Active 935772055 ROYERSFORDNEDA J PORSHA [place] [facility] Gastro-esophageal reflux disease without esophagitis ( SNOMED CT 147013416) Active 600677233 ALF GUEVARA [facility] History of malignant neoplasm of lung Active 284136917 CHAPO BARRETO [facility] Hyperlipidemia (SNOMED CT 86631830) Active 27676619 PAMELA RAMSEY [facility] Lung mass Active 787088132 September 08, 2014 E ntered By: PADMA [...] report- mod. differentiated bronchogenic adenoca. 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 Active 37946859 KATHERINE MATT [facility] Obesity Active 843159102 [facility] Obstructive sleep apnea syndrome (SNOMED CT 74948775) Active 648577 015 PH[place]ASS [facility] Pancreatic cyst Active 38188897 JAYLENE GUEVARA [facility] Papilloma of right eyelid Active 334567195544220 NEDA SHAW [facility] Polyp of colon Active 82846250 Jan 23 Entered By: PADMA LONG Comment: c-scope 01/17/16, multiple benign colonic polypsJun 28, 2017 Entered By: PADMA LONG Comment: c-scope,06/25/17,[facility], three benign polyps- sigmoid colon, transverse colon,cecum. see path report cprs SHARRON TORRES [facility] Pulmonary emphysema Active 15096477 0 BRIANA GAVIN [facility] Sensorineural hearing loss, bilateral Active 715468622 CHASTITY JEAN [facility] Snoring Active 06842507 SONG BULLOCK [facility] Type 2 diabetes mellitus without complication Active 835301923 NEDA SHAW [facility] Environmental Allergies (ICD-9-CM 477.9) Inactive 477.9 Dec 18, 2017 PADMA LONG [facility] External hemorrhoids without mention of complication (ICD-9- CM 455.3) Inactive 455.3 Dec 18, 2017 PADMA LONG [facility] Impotence of organic origin (ICD-9-CM 607.84) Inactive 607.84 Dec 18, 2017 PADMA LONG [facility] Screening for Lipoid disorders (ICD-9-CM V77.91) Inactive V77.91 Jan 18, 2007 PADMA LONG [facility] Stye * (ICD-9-CM 373.11) Inactive 373.11 Dec 18, 201 8 Jan 18, 2007 Entered By: PADMA LONG Comment: bilat lower lids, chronic/recurrent PADMA LONG [facility] Tobacco Use Disorder, Continuous Inactive 305.1 Dec [...]
--- OUTSIDE RECORDS SUMMARY | 2019-12-02 13:05 | XMS REPORT | Encounter Summary ---
Author Author Department of [facility] Aff rsHERBERTH Organization [facility] Address [address] [place] [address] Phone Unavailable Care Team Providers Care Financial Systems Director Name Role Phone ADRIEL HERNANDEZ PCP Unavailable Insurance Providers: All historical and current No Data Provided for This Section Selected Encounter This section includes the information on record at ID for the Encounter. Date/Time Encounter Type Encounter Description Reason Provider Source Oct 07, 2019 11:16 AM Outpatient Encounter ADMIN PAT ACTIVTIES ([place] NCT) [facility] Encounter Template Text not used [...] 11:00 AM AMBULATORY - NONE ARTUR TERAN [facility] Dec 31, 2019 01:15 PM AMBULATORY - MEDICINE ARTUR TERAN [facility] Dec 31, 2019 01:16 PM AMBULATORY - MEDICINE ARTUR TERAN [facility] Jan 01, 2020 09:00 AM AMBULATORY - MEDICINE ARTUR TERAN [facility] Jan 07, 2020 12:00 PM AMBULATORY - MEDICINE [facility] Jan 27, 2020 01:00 PM AMBULATORY - MEDICINE MARLENE KEYS V [facility] Mar 31, 2020 09:30 AM AMBULATORY - MEDICINE [facility] Mar 31, 2020 09:31 AM AMBULATORY - MEDICINE ARTUR TERAN [facility] Mar 31, 2020 10:00 AM AMBULATORY - MEDICINE [facility] Mar 31, 2020 10:01 AM AMBULATORY - MEDICINE ARTUR TERAN [facility] Apr 07, 2020 08:00 AM AMBULATORY [...] 2019 07:23 AM Consult Order [facility] [id number] Cons Business Operations Consultant's Choice ARTUR TERAN [facility] Surgical Procedures: All associated to the encounter [...] [id number] Sep 23, 2019 10:56 AM [facility] URINALYSIS Specimen Type: URINE No comment [...] Negative Sep 23, 2019 10:56 AM [facility] MICROALBUMIN (ANANT,WI) RANDO M URINE Specimen Type: URINE Comment: Microalbumin is below the linearity of the instrument, unable to calculate the albumin/creatinine ratio. *MICROALBUMIN,RAND < 5 ug/mL *MICROALB/CREAT canc mcg/mg cr *UR PROTEIN < 6.8 mg/dL *UR CREATININE 37.4 mg/dL Not Available Sep 23, 2019 10:56 AM [facility] COMPREHENSIVE METABOLIC [...] to adverse reactions to drug (diso rder) [facility] 15 PLAVIX September 08, 2014 Propensity to adverse reactions to drug (diso rder) [facility] 15 Medications: VA dispensed (-15 months) and Non-VA Documented (Obtained Outside V A) Section Date Range: 1) prescriptions processed by a VA pharmacy in the last 15 m [facility], and 2) all medications recorded [...] TEST BLOOD GLUCOSE 50 Dec 19, 2019 [id number] September 04, 2019 PAMELA RAMSEY ACCU-CHEK CHARLES PLUS (GLUCOSE) TEST STRIP Discontinued USE 1 STRIP FOR TESTING TWO TIMES PER WEEK - DIRECTED TO TEST BLOOD GLUCOSE 50 Jul 25, 2019 [id number] Nov 12, 2018 PAMELA RAMSEY ALBUTEROL SO4 90MCG/ACTUAT (CFC-F) INHL,ORAL,6.7GM Active INHALE 2 PUFFS BY ORAL INHALATION EVERY 4 HOURS NEEDED FOR BREATHING. SHAKE WELL. RINSE MOUTHPIECE FREQUENTLY TO PREVENT CLOGGING. USE NEEDED FOR SHORTNESS OF AIR/WHEEZING FOR BREATHING. SHAKE WELL. RINSE MOUTHPIECE FREQUENTLY TO PREVENT CLOGGING. USE NEEDED FOR SHORTNESS OF AIR/WHEEZING 1 Dec 19, 2019 [id number] September 04, 2019 [facility] RAMSEY [facility] ALCOHOL PREP PAD Active USE 1 PAD ON SKIN BIW TO CLEAN AND DISINFECT THE SKIN Sep 29, 2020 [id number] Sep 30, 2019 [facility]IC[facility] RANKIN [facility] ALCOHOL PREP PAD Discontinued USE 1 PAD ON SKIN BI W TO CLEAN AND DISINFECT THE SKIN 200 Dec 19, 2019 [id number] Jun 06, 2019 [facility]EL[facility] RAMSEY [facility] ALCOHOL PREP PAD Discontinued USE 1 PAD ON SKIN BI W TO CLEAN AND DISINFECT THE SKIN 200 Jul 25, 2019 [id number] Nov 12, 2018 P[facility]ELA RAMSEY [facility] ASCORBIC ACID 250MG TAB Non-VA TAKE ONE TABLET BY MOUTH ONCE A DAY Non-VA Documented by: SHANIQUA SCHMIDT nted at: [facility] ASPIRIN 25MG/DIPYRIDAMOLE 200MG CAP,SA Active T CHAPIN 1 CAPSULE BY MOUTH TWO TIMES A DAY - SWALLOW WHOLE. DO NOT CRUSH OR CHEW. FOR RECURRENT TIA/STROKE 180 Dec 19, 2019 [id number] Dec 20, 2018 [facility] RAMSEY [facility] ASPIRIN 25MG/DIPYRIDAMOLE 200MG CAP,SA Discontinued T CHAPIN 1 CAPSULE BY MOUTH TWO TIMES A DAY - SWALLOW WHOLE. DO NOT CRUSH OR CHEW. FOR RECURRENT TIA/STROKE 180 Feb 06, 2019 [id number] Sep 28, 2018 ZACHARY GRECO [facility] ASPIRIN 81MG TAB,EC Non- VA TAKE ONE TABLET BY MOUTH ONCE A DAY Non-VA Documented by: PADMA LONG nted at: [facility] ATORVASTATIN CA 80MG TAB Active TAKE ONE TABLET BY MOUTH AT BEDTIME FOR CHOLESTEROL - REPORT ANY UNEXPLAINED MUSCLE PAIN/WEAKNESS TO YOUR PROVIDER 90 Dec 19, 2019 [id number] September 04, 2019 PAMELA RAMSEY ATORVASTATIN CA 80MG TAB Discontinued TAKE ONE TABLET BY MOUTH AT BEDTIME FOR CHOLESTEROL - REPORT ANY UNEXPLAINED MUSCLE PAIN/WEAKNESS TO YOUR PROVIDER 90 Dec 20, 2018 [id number] Nov 12, 2018 PAMELA RAMSEY BUDESONIDE 160MCG/FORMOTEROL FUM 4.5MCG/SPRAY INHL,ORAL,10.2 GM Active INHALE 2 PUFFS BY MOUTH TWO TIMES A DAY FOR BREATHING. SHAKE WELL. RINSE MOUTH AND SPIT AFTER EACH USE. 3 Apr 24, 2020 [id number] August 22, 2019 LISSA OATES [facility] CALCIUM/VITAMIN D TAB No n-VA TAKE BY MOUTH ONCE A DAY Non-V A Documented by: PADMA LONG nted at: [facility] CARBOXYMETHYLCELLULOSE NA 0.5% SOLN,OPH Active INSTILL ONE DROP IN BOTH EYES FOUR TIMES A DAY FOR DRY EYES 15 Feb 01, 2020 [id number] September 03 0 [facility] [...] FOR ALL JOINTS. 100 Oct 31, 2018 [id number] Oct 06, 2018 ANAYELI KIRKPATRICK Luda Juan M TERAN [facility] DICLOFENAC NA 1% GEL,TOP APPLY 2 GRAMS A FFECTED AREA TWO TIMES A DAY NEEDED FOR PAIN AND INFLAMMATION. DO NOT EXCEED 16GM DAILY TO ANY AFFECTED JOINT OF LOWER EXTREMITIES. DO NOT EXCEED 8GM DAILY TO ANY AFFECTED JOINT OF UPPER EXTREMITES. DO NOT EXCEED TOTAL DOSE OF 32GM DAILY FOR ALL JOINTS. 100 Jan 17, 2019 [id number] Dec 20, 2018 PAMELA RAMSEY FLUTICASONE PROPIONATE 50MCG/SPRAY SOLN,NASAL,16GM Active INSTILL 1 SPRAY IN EACH NOSTRIL ONCE A DAY SHAKE GENTLY BEFORE USE! - MUST BE USED DIRECTED FOR 3 WEEKS TO PROVIDE BENEFIT. * NO EARLY REFILLS * 1UNIT = 30DAYS AT 4 PF/DAY OR 60DAYS AT 2PF/DAY 2 Dec 19, 2019 [id number] August 26, 2019 PAMELA RAMSEY KETOTIFEN 0.025% SOLN,OPH Active INSTILL 1 DROP IN BOTH EYES TWO TIMES A DAY FOR RELIEF OF ALLERGY SYMPTOMS IN EYE(S) Feb 01, 2020 [id number] September 04, 2019 [facility] [facility] LANCET,SOFTCLIX Active USE LANCET BIW FOR TESTING BL OOD GLUCOSE DIRECTED Sep 29, 2020 [id number] Sep 30, 2019 MAURICIO RANKIN LANCET,SOFTCLIX Discontinued USE LANCET BIW FO R TESTING BLOOD GLUCOSE DIRECTED Dec 19, 2019 [id number] Jun 06, 2019 PAMELA RAMSEY LANCET,SOFTCLIX Discontinued USE LANCET BIW FO R TESTING BLOOD GLUCOSE DIRECTED Jul 25, 2019 [id number] Nov 12, 2018 PAMELA RAMSEY LISINOPRIL 40MG TAB Non- VA TAKE ONE-HALF TABLET BY MOUTH EVERY MORNING Non-VA Documented by: PAMELA RAMSEY nted at: [facility] LORATADINE/PSEUDOEPHEDRINE TAB,SA Non-VA TAKE BY MOUTH No n-VA Documented by: JUAN LANG nted at: [facility] MAGNESIUM OXIDE 400MG TAB Non-VA [...] ACID (REPLACES ACIPHEX) 180 Dec 19, 2019 [id number] August 26, 2019 PAMELA RAMSEY POLYETHYLENE GLYCOL [...] Non-VA Documented by: KATHERINE MATT nted at: [facility] PREGABALIN 150MG CAP,ORAL Non-VA TAKE 1 CAPSULE BY MOUTH TWO TIMES A DAY Non-VA Docume nted by: PAMELA RAMSEY nted at: [facility] SEMAGLUTIDE INJ,SOLN Non -VA INJECT SUBCUTANEOUSLY EVERY WEEK Non-VA Documented by: ANAYELI KIRKPATRICK nted at: [facility] TERBINAFINE HCL 1% CREAM,TOP Active APPLY LIGHT LY TO AFFECTED AREA TWO TIMES A DAY FOR INFECTION 90 Sep 23, 2020 [id number] Sep 24, 2019 ADRIEL HERNANDEZ UREA 20% CREAM,TOP Active APPLY LIGHTLY (20%) TO AFFECTED AREA TWO TIMES A DAY NEEDED TO PROMOTE HEALING,RUB IN UNTIL COMPLETELY ABSORBED*FOR TOPICAL USE ONLY* APPLY TO BOTH FEET DIRECTED. 90 Sep 25, 2020 [id number] Sep 26, 2019 ADRIEL HERNANDEZ [facility] Problems [...] Alcohol intake above recommended sensible limits Active 057000683 PADMA LONG [facility] Allergic conjunctivitis Active 950532356 [facility] [facility] Bilateral senile combined form cataracts of eyes Active [id number] 9108 [facility] Bilateral tinnitus Active [id number] CHASTITY JEAN [facility] Coronary arteriosclerosis Active 17688730 September 08, 2014 Entered By: PADMA LONG Comment: hx of ptca to RCA several yrs. agoSeptember 08, 2014 Entered By: PADMA LONG Comment: heart cath 09/01/14, neg. / previous stent to RCA,, via abida meneseswi KALA JONES [facility] Diabetes mellitus Active 38569658 PAMELA RAMSEY [facility] Disorder of pancreas Active 0577435 September 08, 2014 Entered By: PADMA LONG Comment: 2.5cm low density lseion in bodyMay 2014 Entered By: PADMA LONG Comment: question of communication with pancreatic ductMay 2014 Entered By: PADMA LONG Comment: favored to be cystic pancreatic cancerMa2014 Entered By: PADMA LONG Comment: per abdominal CT 09/01/14, via abida meneses,wi PADMA LONG [facility] Dry eyes Active 182450838 [facility] Gastro-esophageal reflux disease without esophagitis ( SNOMED CT 522180426) Active 381424606 ALF GUEVARA [facility] History of malignant neoplasm of lung Active 881431711 CHAPO BARRETO [facility] Hyperlipidemia (SNOMED CT 29811313) Active 99745275 PAMELA RAMSEY [facility] Lung mass Active 646355879 September 08, 2014 E ntered By: PADMA LONG Comment: 4.5 cm mass, post. segment right upper lobe.September 08, 2014 Entered By: PADMA LONG Comment: mild adenopathy in mediastinum and bilat. [email or web address] Entered By: PADMA LONG Comment: most likely related to lung cancerMa2014 Entered By: PADMA LONG Comment: per ct angio of chest with contrast 09/01/14,via [facility] 2014 Entered By: PADMA LONG Comment: per path report- mod. differentiated bronchogenic adenoca. 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 Active 59524451 KATHERINE MATT [facility] Obesity Active 183715807 [facility] Obstructive sleep apnea syndrome (SNOMED CT 96718350) Active 092437 015 PHILIPPE DOUGLASS [facility] Pancreatic cyst Active 70343092 JAYLENE GUEVARA [facility] Papilloma of right eyelid Active [id number] NEDA SHAW [facility] Polyp of colon Active 55368763 Jan 23 16 Entered By: PADMA LONG Comment: c-scope 01/17/16, multiple benign colonic polypsJun 28, 2017 Entered By: PADMA LONG Comment: c-scope,06/25/17,[facility], three benign polyps- sigmoid colon, transverse colon,cecum. see path report cprs SHARRON TORRES [facility] Pulmonary emphysema Active 56557816 0 BRIANA LESLYE [facility] Sensorineural hearing loss, bilateral Active 503633967 CHASTITY JEAN [facility] [place] [facility] Snoring Active 62618478 [place] [facility] [place] [facility] Type 2 diabetes mellitus without complication Active 263963550 NEDA SHAW [facility] [place] [facility] Environmental Allergies (ICD-9-CM 477.9) Inactive 477.9 Dec 18, [address] [facility] External hemorrhoids without mention of complication (ICD-9- CM 455.3) Inactive 455.3 Dec 18, [address] Impotence of organic origin (ICD-9-CM 607.84) Inactive 607.84 Dec 18, [address] Screening for Lipoid disorders (ICD-9-CM V77.91) Inactive V77.91 Jan 18, 2007 [facility] Stye * (ICD-9-CM 373.11) Inactive 373.11 Dec 18, 201 8 Jan 18, 2007 Entered By: PADMA LONG Comment: bilat lower lids, chronic/recurrent PADMA LONG [facility] Tobacco Use Disorder, Continuous Inactive 305.1 Dec 18, 2017 Jan 18, 2007 Entered By: PADMA LONG Comment: one ppd PADMA LONG [facility] Radiology Reports: +/- 30 days of the [...] SCHMIDT COSIGNER: URGENCY: STATUS: COMPLETED Department of [facility] Artur Teran [address] [place] [address] HERBERTH FENG JR [address], [address] Sep Dear HERBERTH BOB, The purpose of this letter is to inform you of your test results done recently at the [facility], [place], [place]. Reviewed recent lab- A1C is slightly [...]
--- OUTSIDE RECORDS SUMMARY | 2019-12-02 13:06 | XMS REPORT | Encounter Summary ---
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 Date/Time Encounter Type Encounter Description Reason Provider Source Oct 23, 2019 09:46 AM Outpatient Encounter ADMIN PAT ACTIVTIES (MASNO NCT) [facility] 15 IHE Encounter Template Text not used [...] 11:00 AM AMBULATORY - NONE ARTUR BLAS [facility] Dec 31, 2019 01:15 PM AMBULATORY - MEDICINE ARTUR BLAS [facility] Dec 31, 2019 01:16 PM AMBULATORY - MEDICINE ARTUR BLAS [facility] Jan 01, 2020 09:00 AM AMBULATORY - MEDICINE ARTUR BLAS [facility] Jan 07, 2020 12:00 PM AMBULATORY - MEDICINE [facility] Jan 27, 2020 01:00 PM AMBULATORY - MEDICINE MARLEEN KEYS V [facility] Mar 31, 2020 09:30 AM AMBULATORY - MEDICINE [facility] Mar 31, 2020 09:31 AM AMBULATORY - MEDICINE ARTUR BLAS [facility] Mar 31, 2020 10:00 AM AMBULATORY - MEDICINE [facility] Mar 31, 2020 10:01 AM AMBULATORY - MEDICINE ARTUR BLAS [facility] Apr 07, 2020 08:00 AM AMBULATORY - [...] the Encounter. The data comes from all [facility]. Test Date/Time Test Type Test Details Facility Name Nov 17, 2019 07:23 AM Consult Order [facility] [id number] Cons Research Physicist's Choice ARTUR LudaJuan M SIMSMila [facility] Surgical Procedures: All associated to the encounter [...] adverse reactions to drug (diso rder) [facility] PLAVIX September 08, 2014 Propensity to adverse reactions to drug (diso rder) [facility] Medications: [facility] dispensed [...] TEST BLOOD GLUCOSE 50 Dec 19, 2019 [id number] September 04, 2019 PAMELA RAMSEY ACCU-CHEK CHARLES PLUS (GLUCOSE) TEST STRIP Discontinued USE 1 STRIP FOR TESTING TWO TIMES PER WEEK - DIRECTED TO TEST BLOOD GLUCOSE 50 Jul 25, 2019 [id number] Nov 12, 2018 PAMELA RAMSEY ALBUTEROL SO4 90MCG/ACTUAT (CFC-F) INHL,ORAL,6.7GM Active INHALE 2 PUFFS BY ORAL INHALATION EVERY 4 HOURS NEEDED FOR BREATHING. SHAKE WELL. RINSE MOUTHPIECE FREQUENTLY TO PREVENT CLOGGING. USE NEEDED FOR SHORTNESS OF AIR/WHEEZING FOR BREATHING. SHAKE WELL. RINSE MOUTHPIECE FREQUENTLY TO PREVENT CLOGGING. USE NEEDED FOR SHORTNESS OF AIR/WHEEZING 1 Dec 19, 2019 [id number] September 04, 2019 PAMELA RAMSEY [facility] ALCOHOL PREP PAD Active USE 1 PAD ON SKIN BIW TO CLEAN AND DISINFECT THE SKIN 200 Sep 29, 2020 [id number] Sep 30, 2019 MAURICIO RANKIN [facility] ALCOHOL PREP PAD Discontinued USE 1 PAD ON SKIN BI W TO CLEAN AND DISINFECT THE SKIN 200 Dec 19, 2019 [id number] Jun 06, 2019 PAMELA RAMSEY [facility] ALCOHOL PREP PAD Discontinued USE 1 PAD ON SKIN BI W TO CLEAN AND DISINFECT THE SKIN 200 Jul 25, 2019 [id number] Nov 12, 2018 PAMELA RAMSEY [facility] ASCORBIC ACID 250MG TAB Non-VA TAKE ONE TABLET BY MOUTH ONCE A DAY Non-VA Documented by: SHANIQUA SCHMIDT nted at: [facility] ASPIRIN 25MG/DIPYRIDAMOLE 200MG CAP,SA Active T CHAPIN 1 CAPSULE BY MOUTH TWO TIMES A DAY - SWALLOW WHOLE. DO NOT CRUSH OR CHEW. FOR RECURRENT TIA/STROKE 180 Dec 19, 2019 [id number] Dec 20, 2018 PAMELA RAMSEY [facility] ASPIRIN 25MG/DIPYRIDAMOLE 200MG CAP,SA Discontinued T CHAPIN 1 CAPSULE BY MOUTH TWO TIMES A DAY - SWALLOW WHOLE. DO NOT CRUSH OR CHEW. FOR RECURRENT TIA/STROKE 180 Feb 06, 2019 [id number] Sep 28, 2018 ZACHARY GRECO ASPIRIN 81MG TAB,EC Non- [facility] TAKE ONE TABLET BY MOUTH ONCE A DAY Non-VA Documented by: PADMA LONG nted at: [facility] ATORVASTATIN CA 80MG TAB Active TAKE ONE TABLET BY MOUTH AT BEDTIME FOR CHOLESTEROL - REPORT ANY UNEXPLAINED MUSCLE PAIN/WEAKNESS TO YOUR PROVIDER 90 Dec 19, 2019 [id number] September 04, 2019 PAMELA RAMSEY ATORVASTATIN CA 80MG TAB Discontinued TAKE ONE TABLET BY MOUTH AT BEDTIME FOR CHOLESTEROL - REPORT ANY UNEXPLAINED MUSCLE PAIN/WEAKNESS TO YOUR PROVIDER 90 Dec 20, 2018 [id number] Nov 12, 2018 PAMELA RAMSEY BUDESONIDE 160MCG/FORMOTEROL FUM 4.5MCG/SPRAY INHL,ORAL,10.2 GM Active INHALE 2 PUFFS BY MOUTH TWO TIMES A DAY FOR BREATHING. SHAKE WELL. RINSE MOUTH AND SPIT AFTER EACH USE. 3 Apr 24, 2020 [id number] August 22, 2019 [facility] CALCIUM/VITAMIN D TAB No n-VA TAKE BY MOUTH ONCE A DAY Non-V A Documented by: PADMA LONG nted at: [facility] CARBOXYMETHYLCELLULOSE NA 0.5% SOLN,OPH Active INSTILL ONE DROP IN BOTH EYES FOUR TIMES A DAY FOR DRY EYES 15 Feb 01, 2020 [id number] September 03 0 [facility] DICLOFENAC NA 1% GEL,TOP Discontinued APPLY 2 GRAMS A FFECTED AREA TWO TIMES A DAY NEEDED FOR PAIN AND INFLAMMATION. DO NOT EXCEED 16GM DAILY TO ANY AFFECTED JOINT OF LOWER EXTREMITIES. DO NOT EXCEED 8GM DAILY TO ANY AFFECTED JOINT OF UPPER EXTREMITES. DO NOT EXCEED TOTAL DOSE OF 32GM DAILY FOR ALL JOINTS. 100 Oct 31, 2018 [id number] Oct 06, 2018 ANAYELI KIRKPATRICK [facility] DICLOFENAC NA 1% GEL,TOP APPLY 2 GRAMS A FFECTED AREA TWO TIMES A DAY NEEDED FOR PAIN AND INFLAMMATION. DO NOT EXCEED 16GM DAILY TO ANY AFFECTED JOINT OF LOWER EXTREMITIES. DO NOT EXCEED 8GM DAILY TO ANY AFFECTED JOINT OF UPPER EXTREMITES. DO NOT EXCEED TOTAL DOSE OF 32GM DAILY FOR ALL JOINTS. 100 Jan 17, 2019 [id number] Dec 20, 2018 PAMELA RAMSEY FLUTICASONE PROPIONATE 50MCG/SPRAY SOLN,NASAL,16GM Active INSTILL 1 SPRAY IN EACH NOSTRIL ONCE A DAY SHAKE GENTLY BEFORE USE! - MUST BE USED DIRECTED FOR 3 WEEKS TO PROVIDE BENEFIT. * NO EARLY REFILLS * 1UNIT = 30DAYS AT 4 PF/DAY OR 60DAYS AT 2PF/DAY 2 Dec 19, 2019 [id number] August 26, 2019 PAMELA RAMSEY [facility] KETOTIFEN 0.025% SOLN,OPH Active INSTILL 1 DROP IN BOTH EYES TWO TIMES A DAY FOR RELIEF OF ALLERGY SYMPTOMS IN EYE(S) Feb 01, 2020 [id number] September 04, 2019 [facility] [facility] LANCET,SOFTCLIX Active USE LANCET BIW FOR TESTING BL OOD GLUCOSE DIRECTED 100 Sep 29, 2020 [id number] Sep 30, 2019 MAURICIO RANKIN [facility] LANCET,SOFTCLIX Discontinued USE LANCET BIW FO R TESTING BLOOD GLUCOSE DIRECTED 100 Dec 19, 2019 [id number] Jun 06, 2019 [facility] RAMSEY [facility] LANCET,SOFTCLIX Discontinued USE LANCET BIW FO R TESTING BLOOD GLUCOSE DIRECTED Jul 25, 2019 [id number] Nov 12, 2018 PAMELA RAMSEY LISINOPRIL 40MG TAB Non- [facility] TAKE ONE-HALF TABLET BY MOUTH EVERY MORNING Non-VA Documented by: PAMELA RAMSEY nted at: [facility] LORATADINE/PSEUDOEPHEDRINE TAB,SA Non-VA TAKE BY MOUTH No n-VA Documented by: JUAN LANG nted at: ARTUR BLAS [facility] MAGNESIUM OXIDE 400MG TAB Non-VA TAKE ONE [...] ACID (REPLACES ACIPHEX) 180 Dec 19, 2019 [id number] August 26, 2019 PAMELA RAMSEY POLYETHYLENE GLYCOL [...] Documented by: KATHERINE MATT Docume nted at: [facility] PREGABALIN 150MG CAP,ORAL Non-VA TAKE 1 CAPSULE BY MOUTH TWO TIMES A DAY Non-VA Docume nted by: PAMELA RAMSEY Docume nted at: [facility] SEMAGLUTIDE INJ,SOLN Non -VA INJECT SUBCUTANEOUSLY EVERY WEEK Non-VA Documented by: ANAYELI KIRKPATRICK Docume nted at: [facility] TERBINAFINE HCL 1% CREAM,TOP Active APPLY LIGHT LY TO AFFECTED AREA TWO TIMES A DAY FOR INFECTION Sep 23, 2020 [id number] Sep 24, 2019 ADRIEL HERNANDEZ UREA 20% CREAM,TOP Active APPLY LIGHTLY (20%) TO AFFECTED AREA TWO TIMES A DAY NEEDED TO PROMOTE HEALING,RUB IN UNTIL COMPLETELY ABSORBED*FOR TOPICAL USE ONLY* APPLY TO BOTH FEET DIRECTED. Sep 25, 2020 [id number] Sep 26, 2019 ADRIEL HERNANDEZ Problems (Conditions): [...] Alcohol intake above recommended sensible limits Active 119427181 PADMA LONG [facility] Allergic conjunctivitis Active 376306591 BEA[facility]A [facility] Bilateral senile combined form cataracts of eyes Active [id number] [facility] Bilateral tinnitus Active [id number] CHASTITY JEAN [facility] Coronary arteriosclerosis Active 33306478 September 08, 2014 Entered By: PADMA LONG Comment: hx of ptca to RCA several yrs. agoSeptember 08, 2014 Entered By: PADMA LONG Comment: heart cath 09/01/14, neg. / previous stent to RCA,, via abida meneses ks HATCHER, JENNEY R ROBERT [facility] Diabetes mellitus Active 52589264 PAMELA RAMSEY [facility] Disorder of pancreas Active 7730244 September 08, 2014 Entered By: PADMA LONG Comment: 2.5cm low density lseion in bodyMay 2014 Entered By: PADMA LONG Comment: question of communication with pancreatic ductMay 2014 Entered By: PADMA LONG Comment: favored to be cystic pancreatic cancerMay 2014 Entered By: PADMA LONG Comment: per abdominal CT 09/01/14, via abida meneses ks FRAZIER, JAY J [facility] Dry eyes Active 709302895 [facility] Juan M [facility] Gastro-esophageal reflux disease without esophagitis ( SNOMED CT 887323232) Active 041379473 ALF GUEVARA [facility] History of malignant neoplasm of lung Active 926240739 CHAPO BARRETO [facility] Hyperlipidemia (SNOMED CT 11403209) Active 35294119 PAMELA RAMSEY [facility] Lung mass Active 008547008 September 08, 2014 E ntered By: PADMA LONG Comment: 4.5 cm mass, post. segment right upper lobe.September 08, 2014 Entered By: PADMA LONG Comment: mild adenopathy in mediastinum and bilat. hilaMay 2014 Entered By: PADMA LONG Comment: most likely related to lung cancerMa2014 Entered By: PADMA LONG Comment: per ct angio of chest with contrast 09/01/14,via abida meneses ksJun 2014 Entered By: APDMA LONG Comment: per path report- mod. differentiated bronchogenic adenoca. 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, three benign polyps- sigmoid colon, transverse colon,cecum. see path report cprs SHARRON TORRES [facility] Pulmonary emphysema Active 02127118 0 BRIANA GAVIN [facility] Sensorineural hearing loss, bilateral Active 472755913 CHASTITY JEAN [facility] Snoring Active 70673542 SONG BULLOCK [facility] Type 2 diabetes mellitus without complication Active 890387367 [facility]A [facility] Environmental Allergies (ICD-9-CM 477.9) [...] Inactive V77.91 Jan 18, 2007 [facility] Stye * (ICD-9-CM 373.11) Inactive 373.11 Dec 18, 201 8 Jan 18, 2007 Entered By: PADMA LONG Comment: bilat lower lids, chronic/recurrent [facility] Tobacco Use Disorder, [...] Consult Results Radiology Comment: [facility] [place] [place]/10/07/2019 /gisell/ AIMEE KRUGER [facility] Signed: 10/23/2019 09:47 AIMEE KRUGER [facility]
--- OUTSIDE RECORDS SUMMARY | 2019-12-02 13:06 | XMS REPORT ---
Author Author Department of [facility] Aff rsHERBERTH [facility] Address [address] [place] [address] Phone Unavailable Care Team Providers Care Blueprint Processor Name Role Phone ADRIEL HERNANDEZ PCP Unavailable Insurance Providers: All historical and current No Data Provided for This Section Selected Encounter This section includes the information on record at DC for the Encounter. Date/Time Encounter Type Encounter Description Reason Provider Source Oct 08, 2019 10:07 AM Outpatient Encounter ADMIN PAT ACTIVTIES ([place] [facility]) [facility] Encounter Template Text not used by DC Assessments - Encounter Diagnoses No Data Provided for This Section Plan of Treatment: Future Appointments (+ 6 months) and Future Tests (+/- 45 day s) The Plan of Treatment section includes future care activities for the patient fr om all DC treatment facilities. This section includes future appointments and fu ture orders which are active, pending or scheduled. Future Appointments This section includes appointments that were scheduled t o occur 6 months from the date of the Encounter, up to a maximum of 20 appointme nts. The data comes from all DC treatment facilities. Appointment Date/Time Appointment Type Appointment Facili ty Name Dec 31, 2019 11:00 AM AMBULATORY - NONE [facility] Dec 31, 2019 01:15 PM AMBULATORY - MEDICINE [facility] Dec 31, 2019 01:16 PM AMBULATORY - MEDICINE [facility] Jan 01, 2020 09:00 AM AMBULATORY - MEDICINE [facility] Jan 07, 2020 12:00 PM [facility]ATORY [facility] MEDICINE [facility] Jan 27, 2020 01:00 PM AMBULATORY - MEDICINE MARLENE KEYS [facility] Mar 31, 2020 09:30 AM AMBULATORY - MEDICINE [facility] Mar 31, 2020 09:31 AM AMBULATORY - MEDICINE [facility]UR [facility] Mar 31[place] 2020 10:00 AM [facility]BULATORY - MEDICINE [facility] Mar 31, 2020 10:01 AM AMBULATORY - MEDICINE [facility]UR [facility] Apr 07, 2020 08:00 AM [...] the Encounter. The data comes from all DC treatment facilities. Test Date/Time Test Type Test Details Facility Name Nov 17, 2019 07:23 AM Consult Order [facility] [id number] Cons Cobbler Apprentice's Choice ARTUR BLAS [facility] Surgical Procedures: All associated to the encounter [...] uIU/mL 0.47-5.00 Sep 23, 2019 10:56 AM [facility] LIPID PROFILE(HDL,TRIG,CHO L,LDL) Specimen Type: PLASMA Comment: For eGFR: eGFR results >60 are imprecise. Many variables affect the calculated result. Interpretation of eGFR results >60 must be monitored over time. CHOLESTEROL 137 mg/dL 0-200 TRIGS 167 mg/dL H 0-150 HDL-CHOLESTEROL 36 mg/dL L >40 LDL (CALC) 68 mg/dL 0-99.9 Sep 23, 2019 10:56 AM [facility] URINALYSIS Specimen Type: URINE No comment [...] Negative Sep 23, 2019 10:56 AM [facility] MICROALBUMIN (ANANT,WI) RANDO M URINE Specimen Type: URINE Comment: Microalbumin is below the linearity of the instrument, unable to calculate the albumin/creatinine ratio. *MICROALBUMIN,RAND < 5 ug/mL *MICROALB/CREAT canc mcg/mg cr *UR PROTEIN < 6.8 mg/dL *UR CREATININE 37.4 mg/dL Not Available Sep 23, 2019 10:56 AM [facility] COMPREHENSIVE METABOLIC PA KELLE Specimen Type: [...] OC Dec 01, 2005 08:32 AM NON-SMOKER [facility] Dec 01, 2005 08:32 AM NON-TOBACCO [...] patient. The data comes from a ll DC treatment facilities. It does not list Allergies/ADRs that were removed or entered in error. Some allergies/ADRs may be reported in t he Immunization section. Allergen Event Date Event Type Reaction(s) Severity Source [place] September 08, 2014 Propensity to adverse reactions to drug (diso rder) [facility] 15 PLAVIX September 08, [...] care team. The data comes from all [place] treatment facilities. Glossary of Pharmacy Terms:Active = A prescription that can be filled at the local [facility] pharmacy.Active: On Hold = An active prescription that will not be filled until pharmacy resolves the issue.Active: Susp = An active prescription that is not scheduled to be filled yet.Clinic Order = A medication received during a visit to a DC clinic or emergency department (currently not available).Discontinued [...] may be a prescription from either the DC or other providers that was filled outside the DC. Or, it may be an over the [...] TEST BLOOD GLUCOSE 50 Dec 19, 2019 [id number] September 04, 2019 PAMELA RAMSEY ACCU-CHEK CHARLES PLUS (GLUCOSE) TEST STRIP Discontinued USE 1 STRIP FOR TESTING TWO TIMES PER WEEK - DIRECTED TO TEST BLOOD GLUCOSE 50 Jul 25, 2019 [id number] Nov 12, 2018 PAMELA RAMSEY ALBUTEROL SO4 90MCG/ACTUAT (CFC-F) INHL,ORAL,6.7GM Active INHALE 2 PUFFS BY ORAL INHALATION EVERY 4 HOURS NEEDED FOR BREATHING. SHAKE WELL. RINSE MOUTHPIECE FREQUENTLY TO PREVENT CLOGGING. USE NEEDED FOR SHORTNESS OF AIR/WHEEZING FOR BREATHING. SHAKE WELL. RINSE MOUTHPIECE FREQUENTLY TO PREVENT CLOGGING. USE NEEDED FOR SHORTNESS OF AIR/WHEEZING 1 Dec 19, 2019 [id number] September 04, 2019 [facility] ALCOHOL PREP PAD Active USE 1 PAD ON SKIN BIW TO CLEAN AND DISINFECT THE SKIN Sep 29, 2020 [id number] Sep 30, 2019 [facility]IC[facility] RANKIN [facility] ALCOHOL PREP PAD Discontinued USE 1 PAD ON SKIN BI W TO CLEAN AND DISINFECT THE SKIN 200 Dec 19, 2019 [id number] Jun 06, 2019 [facility] ALCOHOL PREP PAD Discontinued USE 1 PAD ON SKIN BI W TO CLEAN AND DISINFECT THE SKIN 200 Jul 25, 2019 [id number] Nov 12, 2018 [facility]A RAMSEY [facility] ASCORBIC ACID 250MG TAB Non-VA TAKE ONE TABLET BY MOUTH ONCE A DAY Non-VA Documented by: SHANIQUA SCHMIDT nted at: [facility] ASPIRIN 25MG/DIPYRIDAMOLE 200MG CAP,SA Active T CHAPIN 1 CAPSULE BY MOUTH TWO TIMES A DAY - SWALLOW WHOLE. DO NOT CRUSH OR CHEW. FOR RECURRENT TIA/STROKE 180 Dec 19, 2019 [id number] Dec 20, 2018 [facility] RAM[facility] ASPIRIN 25MG/DIPYRIDAMOLE 200MG CAP,SA Discontinued T CHAPIN 1 CAPSULE BY MOUTH TWO TIMES A DAY - SWALLOW WHOLE. DO NOT CRUSH OR CHEW. FOR RECURRENT TIA/STROKE 180 Feb 06, 2019 [id number] Sep 28, 2018 ZACHARY GRECO [facility] ASPIRIN 81MG TAB,EC Non- [facility] TAKE ONE TABLET BY MOUTH ONCE A DAY Non-VA Documented by: PADMA LONG nted at: [facility] ATORVASTATIN CA 80MG TAB Active TAKE ONE TABLET BY MOUTH AT BEDTIME FOR CHOLESTEROL - REPORT ANY UNEXPLAINED MUSCLE PAIN/WEAKNESS TO YOUR PROVIDER 90 Dec 19, 2019 [id number] September 04, 2019 PAMELA RAMSEY ATORVASTATIN CA 80MG TAB Discontinued TAKE ONE TABLET BY MOUTH AT BEDTIME FOR CHOLESTEROL - REPORT ANY UNEXPLAINED MUSCLE PAIN/WEAKNESS TO YOUR PROVIDER 90 Dec 20, 2018 [id number] Nov 12, 2018 PAMELA RAMSEY BUDESONIDE 160MCG/FORMOTEROL FUM 4.5MCG/SPRAY INHL,ORAL,10.2 GM Active INHALE 2 PUFFS BY MOUTH TWO TIMES A DAY FOR BREATHING. SHAKE WELL. RINSE MOUTH AND SPIT AFTER EACH USE. 3 Apr 24, 2020 [id number] August 22, 2019 LISSA OATES [facility] CALCIUM/VITAMIN D TAB No n-VA TAKE BY MOUTH ONCE A DAY Non-V A Documented by: PADMA LONG nted at: [facility] CARBOXYMETHYLCELLULOSE NA 0.5% SOLN,OPH Active INSTILL ONE DROP IN BOTH EYES FOUR TIMES A DAY FOR DRY EYES 15 Feb 01, 2020 [id number] September 03 0 [facility] [...] FOR ALL JOINTS. 100 Oct 31, 2018 [id number] Oct 06, 2018 ANAYELI KIRKPATRICK Luda Juan M BLAS [facility] DICLOFENAC NA 1% GEL,TOP APPLY 2 GRAMS A FFECTED AREA TWO TIMES A DAY NEEDED FOR PAIN AND INFLAMMATION. DO NOT EXCEED 16GM DAILY TO ANY AFFECTED JOINT OF LOWER EXTREMITIES. DO NOT EXCEED 8GM DAILY TO ANY AFFECTED JOINT OF UPPER EXTREMITES. DO NOT EXCEED TOTAL DOSE OF 32GM DAILY FOR ALL JOINTS. 100 Jan 17, 2019 [id number] Dec 20, 2018 PAMELA RAMSEY FLUTICASONE PROPIONATE 50MCG/SPRAY SOLN,NASAL,16GM Active INSTILL 1 SPRAY IN EACH NOSTRIL ONCE A DAY SHAKE GENTLY BEFORE USE! - MUST BE USED DIRECTED FOR 3 WEEKS TO PROVIDE BENEFIT. * NO EARLY REFILLS * 1UNIT = 30DAYS AT 4 PF/DAY OR 60DAYS AT 2PF/DAY 2 Dec 19, 2019 [id number] August 26, 2019 PAMELA RAMSEY KETOTIFEN 0.025% SOLN,OPH Active INSTILL 1 DROP IN BOTH EYES TWO TIMES A DAY FOR RELIEF OF ALLERGY SYMPTOMS IN EYE(S) Feb 01, 2020 [id number] September 04, 2019 [facility] LANCET,SOFTCLIX Active USE LANCET BIW FOR TESTING BL OOD GLUCOSE DIRECTED Sep 29, 2020 [id number] Sep 30, 2019 MAURICIO RANKIN LANCET,SOFTCLIX Discontinued USE LANCET BIW FO R TESTING BLOOD GLUCOSE DIRECTED Dec 19, 2019 [id number] Jun 06, 2019 PAMELA RAMSEY LANCET,SOFTCLIX Discontinued USE LANCET BIW FO R TESTING BLOOD GLUCOSE DIRECTED Jul 25, 2019 [id number] Nov 12, 2018 PAMELA RAMSEY LISINOPRIL 40MG TAB Non- [facility] TAKE ONE-HALF TABLET BY MOUTH EVERY MORNING Non-VA Documented by: PAMELA RAMSEY nted at: [facility] LORATADINE/PSEUDOEPHEDRINE TAB,SA Non-VA TAKE BY MOUTH No n-VA Documented by: JUAN LANG nted at: [facility] O[facility] 400MG TAB Non-VA TAKE ONE [...] ACID (REPLACES ACIPHEX) 180 Dec 19, 2019 [id number] August 26, 2019 PAMELA RAMSEY POLYETHYLENE GLYCOL [...] Documented by: KATHERINE MATT nted at: [facility] PREGABALIN 150MG CAP,ORAL Non-VA TAKE 1 CAPSULE BY MOUTH TWO TIMES A DAY Non-VA Docume nted by: PAMELA RAMSEY nted at: [facility] SEMAGLUTIDE INJ,SOLN Non -VA INJECT SUBCUTANEOUSLY EVERY WEEK Non-VA Documented by: ANAYELI KIRKPATRICK nted at: [facility] HCL 1% CREAM,TOP Active APPLY LIGHT LY TO AFFECTED AREA TWO TIMES A DAY FOR INFECTION 90 Sep 23, 2020 [id number] Sep 24, 2019 ADRIEL HERNANDEZ UREA 20% CREAM,TOP Active APPLY LIGHTLY (20%) TO AFFECTED AREA TWO TIMES A DAY NEEDED TO PROMOTE HEALING,RUB IN UNTIL COMPLETELY ABSORBED*FOR TOPICAL USE ONLY* APPLY TO BOTH FEET DIRECTED. 90 Sep 25, 2020 [id number] Sep 26, 2019 [facility]NDEZ [facility] Problems (Conditions): All historical and current Section Date Range: From patient's date of to the date document was create d. This section includes a list of Problems (Conditions) know n to VA for the patient. It includes both active and inacti ve problems (conditions). The data comes from all [place] treatment facilities. Problem Status Problem Code Date of Onset Date of Resolution Comm ent(s) Provider Source Alcohol intake above recommended sensible limits Active 516152374 PADMA LONG [facility] Allergic conjunctivitis Active 053379460 [facility]A [facility] Bilateral senile combined form cataracts of eyes Active 02464254436 9108 [facility]A [facility] Bilateral tinnitus Active 5739483258503 [facility]ASTITY JEAN [facility] Coronary arteriosclerosis Active [id number] September 08, 2014 Entered By: PADMA LONG Comment: hx of ptca to RCA several yrs. agoSeptember 08, 2014 Entered By: PADMA LONG Comment: heart cath 09/01/14, neg. 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 Entered By: PADMA LONG Comment: per abdominal CT 09/01/14, via abida meneses,wa PADMA LONG [facility] Dry eyes Active 822529222 [facility] Gastro-esophageal reflux disease without esophagitis ( SNOMED CT 943404115) Active 036443455 ALF GUEVARA [facility] History of malignant neoplasm of lung Active 605048357 CHAPO BARRETO [facility] Hyperlipidemia (SNOMED CT 13018360) Active 26351251 PAMELA RAMSEY [facility] Lung mass Active 651005358 September 08, 2014 E ntered By: PADMA LONG Comment: 4.5 cm mass, post. segment right upper lobe.September 08, 2014 Entered By: PADMA LONG Comment: mild adenopathy in mediastinum and bilat. [email or web address] Entered By: PADMA LONG Comment: most likely related to lung cancerMa2014 Entered By: PADMA LONG Comment: per ct angio of chest with contrast 09/01/14,via [facility] [place], operated by [facility] 2014 Entered By: PADMA LONG Comment: per path report- mod. differentiated bronchogenic adenoca. 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 Active 96080033 KATHERINE MATT [facility] Obesity Active 802799901 [facility]OCK [facility] Obstructive sleep apnea syndrome (SNOMED CT 49836201) Active 524464 015 PHILIPPE DOUGLASS [facility] Pancreatic cyst Active 78834259 JAYLENE GUEVARA [facility] Papilloma of right eyelid Active [id number] NEDA SHAW [facility] Polyp of colon Active 79279996 Jan 23 16 Entered By: PADMA LONG Comment: c-scope 01/17/16, multiple benign colonic polypsJun 28, 2017 Entered By: PADMA LONG Comment: c-scope,06/25/17,dc-[facility], three benign polyps- sigmoid colon, transverse colon,cecum. see path report cprs SHARRON TORRES [facility] Pulmonary emphysema Active 78553191 0 BRIANA LESLYE [facility] Sensorineural hearing loss, bilateral Active 846959752 CHASTITY JEAN ARTUR [facility] Snoring Active 28796844 SONG BULLOCK [facility] Type 2 diabetes mellitus without complication Active 097941660 COLINNEDA ARTUR [facility] Environmental Allergies (ICD-9-CM 477.9) Inactive 477.9 Dec 18, 2017 [facility] External hemorrhoids without mention of complication (ICD-9- CM 455.3) Inactive 455.3 Dec 18, 2017 [facility] Impotence of organic origin (ICD-9-CM 607.84) Inactive 607.84 Dec 18, 2017 [facility] Screening for Lipoid disorders (ICD-9-CM V77.91) Inactive V77.91 Jan 18, 2007 [facility]AD[facility] Stye * (ICD-9-CM 373.11) Inactive 373.11 Dec 18, 201 8 Jan 18, 2007 Entered By: PADMA LONG Comment: bilat lower lids, chronic/recurrent PADMA LONG Juan [facility] Tobacco Use Disorder, Continuous Inactive 305.1 Dec 18, 2017 Jan 18, 2007 Entered By: PADMA LONG Comment: one ppd PADMA LONG [facility] Radiology Reports: +/- 30 days of the [...] On Sep@10:08 an attempt was made contact [place] to schedule appointment in :[facility] lab. A message including the purpose of the call and a call back number was left on an answering machine. /gisell/ BESSIE [facility] Signed: 10/08/2019 10:08 BESSIE BOWERS [facility]
--- OUTSIDE RECORDS SUMMARY | 2019-12-02 13:06 | XMS REPORT | Encounter Summary ---
Author Author [facility] Organization Department of [facility] Address [address] [place] [address] Phone Unavailable Care Team Providers Care Premises Technician Name Role Phone ADRIEL HERNANDEZ PCP [...] with Provider Comments: Tinea Unguium ADRIEL HERNANDEZ [facility] Encounter Template Text not used by PA Assessments - Encounter Diagnoses This section includes the primary and secondary diag noses documented for the Encounter. Date/Time Primary/Secondary Diagnosis Diagnosis Name Provider Source Sep 23, 2019 12:07 PM PRIMARY Tinea unguium [facility] Sep 23, 2019 12:07 PM SECONDARY Unspecified mycosis [facility] Plan of Treatment: Future Appointments (+ [...] NONE [facility] BRYAN CARDOZA Dec 31, 2019 11:00 AM AMBULATORY - NONE ARTUR LaresJuan M SIMSMila [facility] Dec 31, 2019 01:15 PM AMBULATORY - MEDICINE ARTUR BLAS [facility] Dec 31, 2019 01:16 PM AMBULATORY - MEDICINE ARTUR BLAS [facility] Jan 01, 2020 09:00 AM AMBULATORY - MEDICINE ARTUR BLAS [facility] Jan 07, 2020 12:00 PM AMBULATORY - MEDICINE [facility] Jan 27, 2020 01:00 PM AMBULATORY - MEDICINE [facility] Surgical Procedures: All associated to the [...] mg/dL 0-99.9 Sep 23, 2019 10:56 AM [facility] URINALYSIS Specimen Type: URINE No comment [...] Negative Sep 23, 2019 10:56 AM [facility] MICROALBUMIN (ANANT,WI) RANDO M URINE Specimen Type: URINE Comment: Microalbumin is below the linearity of the instrument, unable to calculate the albumin/creatinine ratio. *MICROALBUMIN,RAND < 5 ug/mL *MICROALB/CREAT canc mcg/mg cr *UR PROTEIN < 6.8 mg/dL *UR CREATININE 37.4 mg/dL Not Available Sep 23, 2019 10:56 AM [facility] COMPREHENSIVE METABOLIC PA KELLE Specimen [...] >60 Sep 23, 2019 10:56 AM [facility] CBC & DIFF Specimen Type: [...] Encounter took place. Date/Time Current Smoking Status [facility] Nov 23, 2017 09:51 AM [...] 09:51 AM TOBACCO CESSATION REFERRAL DECLINED [facility] Nov 23, 2017 09:51 AM TOBACCO USER [...] 01, 2005 08:32 AM NON-TOBACCO USER [facility] Advance Directives: All historical and current No [...] reactions to drug (diso rder) [facility] 15 PLAVIX September 08, 2014 Propensity to adverse reactions to drug (diso rder) [facility] 15 Medications: [facility] dispensed (-15 months) and Non-VA Documented (Obtained Outside A) Section Date Range: 1) prescriptions processed by a [facility] pharmacy in the last 15 m [facility], and 2) all medications [...] TEST BLOOD GLUCOSE 50 Dec 19, 2019 [id number] September 04, 2019 PAMELA RAMSEY ACCU-CHEK CHARLES PLUS (GLUCOSE) TEST STRIP Discontinued USE 1 STRIP FOR TESTING TWO TIMES PER WEEK - DIRECTED TO TEST BLOOD GLUCOSE 50 Jul 25, 2019 [id number] Nov 12, 2018 PAMELA RAMSEY CBGUILLERMO ALBUTEROL SO4 90MCG/ACTUAT (CFC-F) INHL,ORAL,6.7GM Active INHALE 2 PUFFS BY ORAL INHALATION EVERY 4 HOURS NEEDED FOR BREATHING. SHAKE WELL. RINSE MOUTHPIECE FREQUENTLY TO PREVENT CLOGGING. USE NEEDED FOR SHORTNESS OF AIR/WHEEZING FOR BREATHING. SHAKE WELL. RINSE MOUTHPIECE FREQUENTLY TO PREVENT CLOGGING. USE NEEDED FOR SHORTNESS OF AIR/WHEEZING 1 Dec 19, 2019 [id number] September 04, 2019 PAMELA RAMSEY CBGUILLERMO ALCOHOL PREP PAD Active USE 1 PAD ON SKIN BIW TO CLEAN AND DISINFECT THE SKIN 200 Sep 29, 2020 [id number] Sep 30, 2019 MAURICIO RANKIN [facility] ALCOHOL PREP PAD Discontinued USE 1 PAD ON SKIN BI W TO CLEAN AND DISINFECT THE SKIN 200 Dec 19, 2019 [id number] Jun 06, 2019 PAMELA RAMSEY [facility] ALCOHOL PREP PAD Discontinued USE 1 PAD ON SKIN BI W TO CLEAN AND DISINFECT THE SKIN 200 Jul 25, 2019 [id number] Nov 12, 2018 PAMELA RAMSEY ASCORBIC ACID 250MG TAB Non-VA TAKE ONE TABLET BY MOUTH ONCE A DAY Non-VA Documented by: SHANIQUA SCHMIDT nted at: [facility] ASPIRIN 25MG/DIPYRIDAMOLE 200MG CAP,SA Active T CHAPIN 1 CAPSULE BY MOUTH TWO TIMES A DAY - SWALLOW WHOLE. DO NOT CRUSH OR CHEW. FOR RECURRENT TIA/STROKE 180 Dec 19, 2019 [id number] Dec 20, 2018 PAMELA RAMSEY [facility] ASPIRIN 25MG/DIPYRIDAMOLE 200MG CAP,SA Discontinued T CHAPIN 1 CAPSULE BY MOUTH TWO TIMES A DAY - SWALLOW WHOLE. DO NOT CRUSH OR CHEW. FOR RECURRENT TIA/STROKE 180 Feb 06, 2019 [id number] Sep 28, 2018 ZACHARY GRECO [facility] ASPIRIN 81MG TAB,EC Non- VA TAKE ONE TABLET BY MOUTH ONCE A DAY Non-VA Documented by: PADMA LONG nted at: [facility] NESS ATORVASTATIN CA 80MG TAB Active TAKE ONE TABLET BY MOUTH AT BEDTIME FOR CHOLESTEROL - REPORT ANY UNEXPLAINED MUSCLE PAIN/WEAKNESS TO YOUR PROVIDER 90 Dec 19, 2019 [id number] September 04, 2019 PAMELA RAMSEY ATORVASTATIN CA 80MG TAB Discontinued TAKE ONE TABLET BY MOUTH AT BEDTIME FOR CHOLESTEROL - REPORT ANY UNEXPLAINED MUSCLE PAIN/WEAKNESS TO YOUR PROVIDER 90 Dec 20, 2018 [id number] Nov 12, 2018 PAMELA RAMSEY BUDESONIDE 160MCG/FORMOTEROL FUM 4.5MCG/SPRAY INHL,ORAL,10.2 GM Active INHALE 2 PUFFS BY MOUTH TWO TIMES A DAY FOR BREATHING. SHAKE WELL. RINSE MOUTH AND SPIT AFTER EACH USE. 3 Apr 24, 2020 [id number] August 22, 2019 LISSA OATES [facility] CALCIUM/VITAMIN D TAB No n-VA TAKE BY MOUTH ONCE A DAY Non-V A Documented by: PADMA LONG nted at: [facility] CARBOXYMETHYLCELLULOSE NA 0.5% SOLN,OPH Active INSTILL ONE DROP IN BOTH EYES FOUR TIMES A DAY FOR DRY EYES 15 Feb 01, 2020 [id number] September 03 0 [facility] DICLOFENAC NA 1% GEL,TOP Discontinued APPLY 2 GRAMS A FFECTED AREA TWO TIMES A DAY NEEDED FOR PAIN AND INFLAMMATION. DO NOT EXCEED 16GM DAILY TO ANY AFFECTED JOINT OF LOWER EXTREMITIES. DO NOT EXCEED 8GM DAILY TO ANY AFFECTED JOINT OF UPPER EXTREMITES. DO NOT EXCEED TOTAL DOSE OF 32GM DAILY FOR ALL JOINTS. 100 Oct 31, 2018 [id number] Oct 06, 2018 ANAYELI KIRKPATRICK ARTUR BLAS [facility] DICLOFENAC NA 1% GEL,TOP APPLY 2 GRAMS A FFECTED AREA TWO TIMES A DAY NEEDED FOR PAIN AND INFLAMMATION. DO NOT EXCEED 16GM DAILY TO ANY AFFECTED JOINT OF LOWER EXTREMITIES. DO NOT EXCEED 8GM DAILY TO ANY AFFECTED JOINT OF UPPER EXTREMITES. DO NOT EXCEED TOTAL DOSE OF 32GM DAILY FOR ALL JOINTS. 100 Jan 17, 2019 [id number] Dec 20, 2018 PAMELA RAMSEY FLUTICASONE PROPIONATE 50MCG/SPRAY SOLN,NASAL,16GM Active INSTILL 1 SPRAY IN EACH NOSTRIL ONCE A DAY SHAKE GENTLY BEFORE USE! - MUST BE USED DIRECTED FOR 3 WEEKS TO PROVIDE BENEFIT. * NO EARLY REFILLS * 1UNIT = 30DAYS AT 4 PF/DAY OR 60DAYS AT 2PF/DAY 2 Dec 19, 2019 [id number] August 26, 2019 PAMELA RAMSEY KETOTIFEN 0.025% SOLN,OPH Active INSTILL 1 DROP IN BOTH EYES TWO TIMES A DAY FOR RELIEF OF ALLERGY SYMPTOMS IN EYE(S) Feb 01, 2020 [id number] September 04, 2019 [facility] LANCET,SOFTCLIX Active USE LANCET BIW FOR TESTING BL OOD GLUCOSE DIRECTED Sep 29, 2020 [id number] Sep 30, 2019 MAURICIO RANKIN LANCET,SOFTCLIX Discontinued USE LANCET BIW FO R TESTING BLOOD GLUCOSE DIRECTED Dec 19, 2019 [id number] Jun 06, 2019 PAMELA RAMSEY LANCET,SOFTCLIX Discontinued USE LANCET BIW FO R TESTING BLOOD GLUCOSE DIRECTED Jul 25, 2019 [id number] Nov 12, 2018 PAMELA RAMSEY LISINOPRIL 40MG TAB Non- VA TAKE ONE-HALF TABLET BY MOUTH EVERY MORNING Non-VA Documented by: PAMELA RAMSEY nted at: [facility] NESS LORATADINE/PSEUDOEPHEDRINE TAB,SA Non-VA TAKE BY MOUTH No n-VA Documented by: JUAN LANG nted at: ARTUR [place] [facility] MAGNESIUM OXIDE 400MG TAB Non-VA TAKE [...] ACID (REPLACES ACIPHEX) 180 Dec 19, 2019 [id number] August 26, 2019 PAMELA RAMSEY POLYETHYLENE GLYCOL [...] Non-VA Documented by: KATHERINE MATT nted at: [facility] PREGABALIN 150MG CAP,ORAL Non-VA TAKE 1 CAPSULE BY MOUTH TWO TIMES A DAY Non-VA Docume nted by: PAMELA RAMSEY nted at: [facility]AREN NESS SEMAGLUTIDE INJ,SOLN Non -VA INJECT SUBCUTANEOUSLY EVERY WEEK Non-VA Documented by: ANAYELI KIRKPATRICK nted at: ARTUR [place] [facility] TERBINAFINE HCL 1% CREAM,TOP Active APPLY LIGHT LY TO AFFECTED AREA TWO TIMES A DAY FOR INFECTION 90 Sep 23, 2020 [id number] Sep 24, 2019 ADRIEL HERNANDEZ UREA 20% CREAM,TOP Active APPLY LIGHTLY (20%) TO AFFECTED AREA TWO TIMES A DAY NEEDED TO PROMOTE HEALING,RUB IN UNTIL COMPLETELY ABSORBED*FOR TOPICAL USE ONLY* APPLY TO BOTH FEET DIRECTED. 90 Sep 25, 2020 [id number] Sep 26, 2019 ADRIEL HERNANDEZ [facility] Problems [...] Alcohol intake above recommended sensible limits Active 476741576 PADMA LONG [facility] Allergic conjunctivitis [place] 691120825 [place] Bilateral senile combined form cataracts of eyes Active [id number] 9108 [facility] Bilateral tinnitus Active [id number] CHASTITY JEAN [facility] Coronary arteriosclerosis Active 53039067 September 08, 2014 Entered By: PADMA LONG Comment: hx of ptca to RCA several yrs. agoSeptember 08, 2014 Entered By: PADMA LONG Comment: heart cath 09/01/14, neg. / previous stent to RCA,, via abida menesesdc KALA JONES [facility] Diabetes mellitus Active 13857981 PAMELA RAMSEY [facility] Disorder of pancreas Active 1076915 September 08, 2014 Entered By: PADMA LONG Comment: 2.5cm low density lseion in bodyMay 2014 Entered By: PADMA LONG Comment: question of communication with pancreatic ductMay 2014 Entered By: PADMA LONG Comment: favored to be cystic pancreatic cancerMa2014 Entered By: PADMA LONG Comment: per abdominal CT 09/01/14, via abida meneses ks FRAZIER, JAY J ROBERT [facility] Dry eyes Active 667034624 [facility] Gastro-esophageal reflux disease without esophagitis ( SNOMED CT 490102327) Active 904542614 ALF GUEVARA [facility] History of malignant neoplasm of lung Active 320656097 CHAPO BARRETO [facility] Hyperlipidemia (SNOMED CT 13334013) Active 68571621 PAMELA RAMSEY [facility] Lung mass Active 509300553 September 08, 2014 E ntered By: PADMA [...] report- mod. differentiated bronchogenic adenoca. 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 Active 84077359 KATHERINE MATT [facility] Obesity Active 423299240 [place] [facility] Obstructive sleep apnea syndrome (SNOMED CT 68034481) Active 043273 015 [place] D[place] [facility] Pancreatic cyst Active 58735149 [facility] Papilloma of right eyelid Active [id number] [facility] SHAW [facility] Polyp of colon Active 36390375 Jan 23 16 Entered By: PADMA LONG Comment: c-scope 01/17/16, multiple benign colonic polypsJun 28, 2017 Entered By: PADMA LONG Comment: c-scope,[facility]25/17[facility], three benign polyps- sigmoid colon, transverse colon,cecum. see path report cprs SHARRON TORRES [facility] Pulmonary emphysema Active 38140932 0 BRIANA LESLYE [facility] Sensorineural hearing loss, bilateral Active 997257747 CHASTITY JEAN [facility] Snoring Active 31563589 [place] ARTUR [facility] Type 2 diabetes mellitus without complication Active 744104547 [facility] SHAW [facility] Environmental Allergies (ICD-9-CM 477.9) Inactive 477.9 Dec 18, 2017 PAD[facility] External hemorrhoids without mention of complication (ICD-9- CM 455.3) Inactive 455.3 Dec 18, 2017 PADMA LONG [facility] Impotence of organic origin (ICD-9-CM 607.84) Inactive 607.84 Dec 18, 2017 PADMA LONG [facility] Screening for Lipoid disorders (ICD-9-CM V77.91) Inactive V77.91 Jan 18, 2007 [facility]AD[facility] LONG [facility] Stye * (ICD-9-CM 373.11) Inactive 373.11 Dec 18, 201 8 Jan 18, 2007 Entered By: PADMA LONG Comment: bilat lower lids, chronic/recurrent PADMA LONG Juan M BLAS [facility] Tobacco Use Disorder, Continuous Inactive 305.1 Dec 18, 2017 Jan 18, 2007 Entered By: PADMA LONG Comment: one PADMA Yu [facility] Radiology Reports: +/- [...] Unable to assess Comments: michelet/ ADRIEL HERNANDEZ [facility]- Signed: 09/23/2019 12:06 ADRIEL HERNANDEZ [facility] Sep 23, 2019 12:01 PM PRIMARY [...] today? *Required No Are you registered for [facility] ([facility])? No - Are you interested in registering? No If 'yes' please hand [facility] brochure. [place]-FOOT EXAM (PAVE): Foot Assessment VISUAL [...] of MOVE! Program can be adapted for Bruning's physical abilities. 'MOVE!' Screening: Patient offered and [...] THOMSON LPN Signed: 09/23/2019 11:39 RAFI THOMSON [facility]
--- OUTSIDE RECORDS SUMMARY | 2019-12-02 13:07 | XMS REPORT | Encounter Summary ---
Author Author Department of [facility] Aff [facility]BER[facility] Organization [facility] Address [address] [place] [address] Phone Unavailable Care Team Providers Care Presales Engineer Name Role Phone ADRIEL HERNANDEZ PCP Unavailable Insurance Providers: All historical and current No Data Provided for This Section Selected Encounter This section includes the information on record at [place] for the Encounter. Date/Time Encounter Type Encounter Description Reason Provider Source Aug 07, 2019 10:30 AM Outpatient Encounter TELEPHONE/MEDICINE ARTUR BLAS [facility] IHE Encounter Template Text not used [...] 2019 09:15 AM AMBULATORY - NONE [facility] BRYAN ROQUE 15 Dec 31, 2019 11:00 AM [facility] - [facility] Dec [facility], 2019 01:15 PM [facility]ULAT[facility] - MEDICINE ARTUR BLAS [facility] Dec 31, 2019 01:16 PM AMBULATORY - MEDICINE ARTUR BLAS [facility] Jan 01, 2020 09:00 AM AMBULATORY - MEDICINE ARTUR BLAS [facility] Jan 07, 2020 12:00 PM AMBULATORY - MEDICINE [facility] Jan 27, 2020 01:00 PM AMBULATORY - MEDICINE [facility] Surgical Procedures: All associated to the [...] Comment Facility Jun 26, 2018 02:13 PM [place]-TOBACCO QUIT 15 YRS OR MORE PORSHA BLAS [facility] Tobacco Use History This section includes a history of the smoking, or tobacco -related health factors, that were collected on or before the date of the Encoun ter. The data comes from the [place] facility where the Encounter took place. Date/Time Smoking Status/Tobacco Use Comment [facility] Jun 26, 2018 02:13 PM [place]-TOBACCO QUIT 15 YRS OR MORE PORSHA BLAS [facility] Jun 27, 2017 01:39 PM NON-TOBACCO [...] (diso rder) [facility] 15 [place] September 08, 2014 Propensity to adverse reactions to drug (diso rder) [facility], [facility] 15 Medications: VA dispensed (-15 months) and Non-VA Documented (Obtained Outside A) Section Date Range: 1) prescriptions processed by a [facility] pharmacy in the last 15 m [facility], and 2) all medications recorded in the [...] TEST BLOOD GLUCOSE 50 Dec 19, 2019 [id number] September 04, 2019 PAMELA RAMSEY ACCU-CHEK CHARLES PLUS (GLUCOSE) TEST STRIP Discontinued USE 1 STRIP FOR TESTING TWO TIMES PER WEEK - DIRECTED TO TEST BLOOD GLUCOSE 50 Jul 25, 2019 [id number] Nov 12, 2018 PAMELA RAMSEY ALBUTEROL SO4 90MCG/ACTUAT (CFC-F) INHL,ORAL,6.7GM Active INHALE 2 PUFFS BY ORAL INHALATION EVERY 4 HOURS NEEDED FOR BREATHING. SHAKE WELL. RINSE MOUTHPIECE FREQUENTLY TO PREVENT CLOGGING. USE NEEDED FOR SHORTNESS OF AIR/WHEEZING FOR BREATHING. SHAKE WELL. RINSE MOUTHPIECE FREQUENTLY TO PREVENT CLOGGING. USE NEEDED FOR SHORTNESS OF AIR/WHEEZING 1 Dec 19, 2019 [id number] September 04, 2019 PAMELA RAMSEY CBGUILLERMO ALCOHOL PREP PAD Active USE 1 PAD ON SKIN BIW TO CLEAN AND DISINFECT THE SKIN 200 Sep 29, 2020 [id number] Sep 30, 2019 PAMELLA RANKINLloyd [facility] ALCOHOL PREP PAD Discontinued USE 1 PAD ON SKIN BI W TO CLEAN AND DISINFECT THE SKIN 200 Dec 19, 2019 [id number] Jun 06, 2019 PAMELA RAMSEY CBGUILLERMO ALCOHOL PREP PAD Discontinued USE 1 PAD ON SKIN BI W TO CLEAN AND DISINFECT THE SKIN 200 Jul 25, 2019 [id number] Nov 12, 2018 PAMELA RAMSEY ASCORBIC ACID 250MG TAB Non-VA TAKE ONE TABLET BY MOUTH ONCE A DAY Non-VA Documented by: SHANIQUA SCHMIDT nted at: [facility] ASPIRIN 25MG/DIPYRIDAMOLE 200MG CAP,SA Active T CHAPIN 1 CAPSULE BY MOUTH TWO TIMES A DAY - SWALLOW WHOLE. DO NOT CRUSH OR CHEW. FOR RECURRENT TIA/STROKE 180 Dec 19, 2019 [id number] Dec 20, 2018 PAMELA RAMSEY [facility] ASPIRIN 25MG/DIPYRIDAMOLE 200MG CAP,SA Discontinued T CHAPIN 1 CAPSULE BY MOUTH TWO TIMES A DAY - SWALLOW WHOLE. DO NOT CRUSH OR CHEW. FOR RECURRENT TIA/STROKE 180 Feb 06, 2019 [id number] Sep 28, 2018 ZACHARY GRECO [facility] ASPIRIN 81MG TAB,EC Non- VA TAKE ONE TABLET BY MOUTH ONCE A DAY Non-VA Documented by: PADMA LONG nted at: [facility] ATORVASTATIN CA 80MG TAB Active TAKE ONE TABLET BY MOUTH AT BEDTIME FOR CHOLESTEROL - REPORT ANY UNEXPLAINED MUSCLE PAIN/WEAKNESS TO YOUR PROVIDER 90 Dec 19, 2019 [id number] September 04, 2019 PAMELA RAMSEY ATORVASTATIN CA 80MG TAB Discontinued TAKE ONE TABLET BY MOUTH AT BEDTIME FOR CHOLESTEROL - REPORT ANY UNEXPLAINED MUSCLE PAIN/WEAKNESS TO YOUR PROVIDER 90 Dec 20, 2018 [id number] Nov 12, 2018 PAMELA RAMSEY BUDESONIDE 160MCG/FORMOTEROL FUM 4.5MCG/SPRAY INHL,ORAL,10.2 GM Active INHALE 2 PUFFS BY MOUTH TWO TIMES A DAY FOR BREATHING. SHAKE WELL. RINSE MOUTH AND SPIT AFTER EACH USE. 3 Apr 24, 2020 [id number] August 22, 2019 LISSA OATES [facility] CALCIUM/VITAMIN D TAB No n-VA TAKE BY MOUTH ONCE A DAY Non-V A Documented by: PADMA LONG nted at: [facility] CARBOXYMETHYLCELLULOSE NA 0.5% SOLN,OPH Active INSTILL ONE DROP IN BOTH EYES FOUR TIMES A DAY FOR DRY EYES 15 Feb 01, 2020 [id number] September 03 0 NEDA SHAW [facility] DICLOFENAC NA 1% GEL,TOP Discontinued APPLY 2 GRAMS A FFECTED AREA TWO TIMES A DAY NEEDED FOR PAIN AND INFLAMMATION. DO NOT EXCEED 16GM DAILY TO ANY AFFECTED JOINT OF LOWER EXTREMITIES. DO NOT EXCEED 8GM DAILY TO ANY AFFECTED JOINT OF UPPER EXTREMITES. DO NOT EXCEED TOTAL DOSE OF 32GM DAILY FOR ALL JOINTS. 100 Oct 31, 2018 [id number] Oct 06, 2018 ANAYELI KIRKPATRICK [facility] [...] FOR ALL JOINTS. 100 Jan 17, 2019 [id number] Dec 20, 2018 PAMELA RAMSEY FLUTICASONE PROPIONATE 50MCG/SPRAY SOLN,NASAL,16GM Active INSTILL 1 SPRAY IN EACH NOSTRIL ONCE A DAY SHAKE GENTLY BEFORE USE! - MUST BE USED DIRECTED FOR 3 WEEKS TO PROVIDE BENEFIT. * NO EARLY REFILLS * 1UNIT = 30DAYS AT 4 PF/DAY OR 60DAYS AT 2PF/DAY 2 Dec 19, 2019 [id number] August 26, 2019 PAMELA RAMSEY KETOTIFEN 0.025% SOLN,OPH Active INSTILL 1 DROP IN BOTH EYES TWO TIMES A DAY FOR RELIEF OF ALLERGY SYMPTOMS IN EYE(S) Feb 01, 2020 [id number] September 04, 2019 [place] SHAW [facility] LANCET,SOFTCLIX Active USE LANCET BIW FOR TESTING BL OOD GLUCOSE DIRECTED Sep 29, 2020 [id number] Sep 30, 2019 [facility]ICIO [facility] LANCET,SOFTCLIX Discontinued USE LANCET BIW FO R TESTING BLOOD GLUCOSE DIRECTED Dec 19, 2019 [id number] Jun 06, 2019 PAMELA RAMSEY [facility] LANCET,SOFTCLIX Discontinued USE LANCET BIW FO R TESTING BLOOD GLUCOSE DIRECTED Jul 25, 2019 [id number] Nov 12, 2018 PAMELA RAMSEY LISINOPRIL 40MG [...] ACID (REPLACES ACIPHEX) 180 Dec 19, 2019 [id number] August 26, 2019 PAMELA RAMSEY POLYETHYLENE GLYCOL [...] nted at: [facility] PREGABALIN 150MG CAP,ORAL Non-VA TAKE 1 CAPSULE BY MOUTH TWO TIMES A DAY Non-VA Docume nted by: PAMELA RAMSEY Docume nted at: [facility] SEMAGLUTIDE INJ,SOLN Non -VA INJECT SUBCUTANEOUSLY EVERY WEEK Non-VA Documented by: ANAYELI KIRKPATRICK Docume nted at: [facility] TERBINAFINE HCL 1% CREAM,TOP Active APPLY LIGHT LY TO AFFECTED AREA TWO TIMES A DAY FOR INFECTION 90 Sep 23, 2020 [id number] Sep 24, 2019 ADRIEL HERNANDEZ UREA 20% CREAM,TOP Active APPLY LIGHTLY (20%) TO AFFECTED AREA TWO TIMES A DAY NEEDED TO PROMOTE HEALING,RUB IN UNTIL COMPLETELY ABSORBED*FOR TOPICAL USE ONLY* APPLY TO BOTH FEET DIRECTED. 90 Sep 25, 2020 [id number] Sep 26, 2019 ADRIEL HERNANDEZ Problems (Conditions): [...] Alcohol intake above recommended sensible limits Active 078465972 PADMA LONG [facility] Allergic conjunctivitis Active 542216892 [facility] Bilateral senile combined form cataracts of eyes Active [id number] 9108 [facility] [facility] Bilateral tinnitus Active [id number] CHASTITY JEAN ART[facility] Coronary arteriosclerosis Active [id number] September 08, 2014 Entered By: PADMA LONG Comment: hx of ptca to RCA several yrs. agoSeptember 08, 2014 Entered By: PADMA LONG Comment: heart cath 09/01/14, neg. / previous stent to RCA,, via abida meneses ks HATCHER, JENNEY R [facility] Diabetes mellitus Active 60985972 PAMELA RAMSEY [facility] Disorder of pancreas Active [id number] September 08, 2014 Entered By: PADMA LONG Comment: 2.5cm low density lseion in bodyMay 2014 Entered By: PADMA LONG Comment: question of communication with pancreatic ductMay 2014 Entered By: PADMA LONG Comment: favored to be cystic pancreatic cancerMay 2014 Entered By: PADMA LONG Comment: per abdominal CT 09/01/14, via abida meneses,PADMA Pradhan [facility] Dry eyes Active 460699141 [place] [facility] Gastro-esophageal reflux disease without esophagitis ( SNOMED CT 425033203) Active 768093457 ALF GUEVARA [facility] History of malignant neoplasm of lung Active 793871745 CHAPO BARRETO [facility] Hyperlipidemia (SNOMED CT 11333358) Active 43384675 PAMELA RAMSEY [facility] Lung mass Active 237856194 September 08, 2014 E ntered By: PADMA [...] differentiated bronchogenic adenoca. 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 Active 12830919 KATHERINE MATT [facility] Obesity Active 081270081 [facility] Obstructive sleep apnea syndrome (SNOMED CT 04888510) Active 824586 015 [place] DOU[place]ASS [facility] Pancreatic cyst Active 28890067 JAYLENE GUEVARA [facility] Papilloma of right eyelid Active [id number] NEDA SHAW [facility] Polyp of colon Active 68418356 Jan 23 Entered By: PADMA LONG Comment: c-scope 01/17/16, multiple benign colonic polypsJun 28, 2017 Entered By: PADMA LONG Comment: c-scope,06/25/17,[facility], three benign polyps- sigmoid colon, transverse colon,cecum. see path report cprs SHARRON TORRES [facility] Pulmonary emphysema Active [id number] 0 BRIANA GAVIN [facility] Sensorineural hearing loss, bilateral Active 698754439 CHASTITY JEAN [facility] Snoring Active 70916846 SONG BULLOCK [facility] Type 2 diabetes mellitus without complication Active 526334812 N[place] SHAW [facility] Environmental Allergies (ICD-9-CM 477.9) Inactive 477.9 Dec 18, 2017 PADMA LONG [facility] External hemorrhoids without mention of complication (ICD-9- CM 455.3) Inactive 455.3 Dec 18, 2017 PADMA LONG [facility] Impotence of organic origin (ICD-9-CM 607.84) Inactive 607.84 Dec 18, 2017 PADMA LONG [facility] Screening for Lipoid disorders (ICD-9-CM V77.91) Inactive [...] 2019 08:38 AM ADMINISTRATIVE NOTE: LOCAL TITLE: DE-ADMINISTRATIVE NOTE (BP,O) STANDARD TITLE: ADMINISTRATIVE NOTE DATE OF NOTE: AUGUST 22, 2019@08:38 ENTRY DATE: AUGUST 22, 2019@08:38:37 AUTHOR: WANDA NELSON EXP COSIGNER: URGENCY: STATUS: COMPLETED Patient called and requested his CT in December be done in the community. He does not want to drive 6 hours round trip. CITC consult entered per patient request. /gisell/ WANDA LINDSEY RN Signed: 08/22/2019 08:39 WANDA NELSON [facility]
--- OUTSIDE RECORDS SUMMARY | 2019-12-02 13:07 | XMS REPORT | Encounter Summary ---
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 Appointment Date/Time Appointment Type Appointment Facili ty Name Sep 23, 2019 11:15 AM AMBULATORY - NONE [facility] Sep 23, 2019 11:30 AM AM[facility]ULATORY - MEDICINE [facility] Oct 07, 2019 09:15 AM AMBULATORY - NONE [facility] Dec 31, 2019 11:00 AM AMBULATORY - NONE [facility] Dec 31, 2019 01:15 PM AMBULATORY - MEDICINE [facility] Dec 31, 2019 01:16 PM AMBULATORY - MEDICINE [facility] Jan 01, 2020 09:00 AM AMBULATORY - MEDICINE [facility] Jan 07, 2020 12:00 PM AMBULATORY - MEDICINE [facility] Jan 27, 2020 01:00 PM AMBULATORY - MEDICINE [facility] Surgical Procedures: All associated to the encounter [...] Comment Facility Jun 26, 2018 02:13 PM SD-TOBACCO QUIT 15 YRS OR MORE PORSHA BLAS [...] 15 YRS OR MORE PORSHA Mckayla BLAS [facility] Jun 27, 2017 01:39 PM NON-TOBACCO USER [facility] Jun 27, 2017 01:16 PM NON-TOBACCO USER [facility] Jan 06, 2015 02:07 PM NON-TOBACCO USER [facility] Nov 23, 2014 10:38 AM NON-TOBACCO USER [facility] Oct 26, 2014 10:36 AM NON-TOBACCO USER [facility] Oct 14, 2014 11:09 AM NON-TOBACCO USER [facility] Advance Directives: All [...] reactions to drug (diso rder) [facility] 15 PLAVIX September 08, 2014 Propensity to adverse reactions to drug (diso rder) [facility] 15 Medications: VA dispensed (-15 months) and Non-VA Documented (Obtained Outside V A) Section Date Range: 1) prescriptions processed by a VA pharmacy in the last 15 m [facility], and 2) all medications [...] TEST BLOOD GLUCOSE 50 Dec 19, 2019 [id number] September 04, 2019 PAMELA RAMSEY ACCU-CHEK CHARLES PLUS (GLUCOSE) TEST STRIP Discontinued USE 1 STRIP FOR TESTING TWO TIMES PER WEEK - DIRECTED TO TEST BLOOD GLUCOSE 50 Jul 25, 2019 [id number] Nov 12, 2018 PAMELA RAMSEY ALBUTEROL SO4 90MCG/ACTUAT (CFC-F) INHL,ORAL,6.7GM Active INHALE 2 PUFFS BY ORAL INHALATION EVERY 4 HOURS NEEDED FOR BREATHING. SHAKE WELL. RINSE MOUTHPIECE FREQUENTLY TO PREVENT CLOGGING. USE NEEDED FOR SHORTNESS OF AIR/WHEEZING FOR BREATHING. SHAKE WELL. RINSE MOUTHPIECE FREQUENTLY TO PREVENT CLOGGING. USE NEEDED FOR SHORTNESS OF AIR/WHEEZING 1 Dec 19, 2019 [id number] September 04, 2019 PAMELA RAMSEY CBGUILLERMO ALCOHOL PREP PAD Active USE 1 PAD ON SKIN BIW TO CLEAN AND DISINFECT THE SKIN 200 Sep 29, 2020 [id number] Sep 30, 2019 MAURICIO RANKIN [facility] ALCOHOL PREP PAD Discontinued USE 1 PAD ON SKIN BI W TO CLEAN AND DISINFECT THE SKIN 200 Dec 19, 2019 [id number] Jun 06, 2019 PAMELA RAMSEY CBGUILLERMO ALCOHOL PREP PAD Discontinued USE 1 PAD ON SKIN BI W TO CLEAN AND DISINFECT THE SKIN 200 Jul 25, 2019 [id number] Nov 12, 2018 PAMELA RAMSEY CBGUILLERMO ASCORBIC ACID 250MG TAB Non-VA TAKE ONE TABLET BY MOUTH ONCE A DAY Non-VA Documented by: SHANIQUA SCHMIDT nted at: [facility] ASPIRIN 25MG/DIPYRIDAMOLE 200MG CAP,SA Active T CHAPIN 1 CAPSULE BY MOUTH TWO TIMES A DAY - SWALLOW WHOLE. DO NOT CRUSH OR CHEW. FOR RECURRENT TIA/STROKE 180 Dec 19, 2019 [id number] Dec 20, 2018 PAMELA RAMSEY [facility] ASPIRIN 25MG/DIPYRIDAMOLE 200MG CAP,SA Discontinued T CHAPIN 1 CAPSULE BY MOUTH TWO TIMES A DAY - SWALLOW WHOLE. DO NOT CRUSH OR CHEW. FOR RECURRENT TIA/STROKE 180 Feb 06, 2019 [id number] Sep 28, 2018 ZACHARY GRECO [facility] ASPIRIN 81MG TAB,EC Non- VA TAKE ONE TABLET BY MOUTH ONCE A DAY Non-VA Documented by: PADMA LONG nted at: [facility] ATORVASTATIN CA 80MG TAB Active TAKE ONE TABLET BY MOUTH AT BEDTIME FOR CHOLESTEROL - REPORT ANY UNEXPLAINED MUSCLE PAIN/WEAKNESS TO YOUR PROVIDER 90 Dec 19, 2019 [id number] September 04, 2019 PAMELA RAMSEY ATORVASTATIN CA 80MG TAB Discontinued TAKE ONE TABLET BY MOUTH AT BEDTIME FOR CHOLESTEROL - REPORT ANY UNEXPLAINED MUSCLE PAIN/WEAKNESS TO YOUR PROVIDER 90 Dec 20, 2018 [id number] Nov 12, 2018 PAMELA RAMSEY GUILLERMO BUDESONIDE 160MCG/FORMOTEROL FUM 4.5MCG/SPRAY INHL,ORAL,10.2 GM Active INHALE 2 PUFFS BY MOUTH TWO TIMES A DAY FOR BREATHING. SHAKE WELL. RINSE MOUTH AND SPIT AFTER EACH USE. 3 Apr 24, 2020 [id number] August 22, 2019 LISSA OATES [facility] CALCIUM/VITAMIN D TAB No n-VA TAKE BY MOUTH ONCE A DAY Non-V A Documented by: PADMA LONG nted at: [facility] CARBOXYMETHYLCELLULOSE NA 0.5% SOLN,OPH Active INSTILL ONE DROP IN BOTH EYES FOUR TIMES A DAY FOR DRY EYES 15 Feb 01, 2020 [id number] September 03 0 [facility] DICLOFENAC NA 1% GEL,TOP Discontinued APPLY 2 GRAMS A FFECTED AREA TWO TIMES A DAY NEEDED FOR PAIN AND INFLAMMATION. DO NOT EXCEED 16GM DAILY TO ANY AFFECTED JOINT OF LOWER EXTREMITIES. DO NOT EXCEED 8GM DAILY TO ANY AFFECTED JOINT OF UPPER EXTREMITES. DO NOT EXCEED TOTAL DOSE OF 32GM DAILY FOR ALL JOINTS. 100 Oct 31, 2018 [id number] Oct 06, 2018 ANAYELI KIRKPATRICK [facility] DICLOFENAC NA 1% GEL,TOP APPLY 2 GRAMS A FFECTED AREA TWO TIMES A DAY NEEDED FOR PAIN AND INFLAMMATION. DO NOT EXCEED 16GM DAILY TO ANY AFFECTED JOINT OF LOWER EXTREMITIES. DO NOT EXCEED 8GM DAILY TO ANY AFFECTED JOINT OF UPPER EXTREMITES. DO NOT EXCEED TOTAL DOSE OF 32GM DAILY FOR ALL JOINTS. 100 Jan 17, 2019 [id number] Dec 20, 2018 PAMELA RAMSEY FLUTICASONE PROPIONATE 50MCG/SPRAY SOLN,NASAL,16GM Active INSTILL 1 SPRAY IN EACH NOSTRIL ONCE A DAY SHAKE GENTLY BEFORE USE! - MUST BE USED DIRECTED FOR 3 WEEKS TO PROVIDE BENEFIT. * NO EARLY REFILLS * 1UNIT = 30DAYS AT 4 PF/DAY OR 60DAYS AT 2PF/DAY 2 Dec 19, 2019 [id number] August 26, 2019 PAMELA RAMSEY KETOTIFEN 0.025% SOLN,OPH Active INSTILL 1 DROP IN BOTH EYES TWO TIMES A DAY FOR RELIEF OF ALLERGY SYMPTOMS IN EYE(S) Feb 01, 2020 [id number] September 04, 2019 [facility] LANCET,SOFTCLIX Active USE LANCET BIW FOR TESTING BL OOD GLUCOSE DIRECTED Sep 29, 2020 [id number] Sep 30, 2019 MAURICIO RANKIN LANCET,SOFTCLIX Discontinued USE LANCET BIW FO R TESTING BLOOD GLUCOSE DIRECTED Dec 19, 2019 [id number] Jun 06, 2019 PAMELA RAMSEY LANCET,SOFTCLIX Discontinued USE LANCET BIW FO R TESTING BLOOD GLUCOSE DIRECTED Jul 25, 2019 [id number] Nov 12, 2018 PAMELA RAMSEY LISINOPRIL 40MG TAB Non- VA TAKE ONE-HALF TABLET BY MOUTH EVERY MORNING Non-VA Documented by: PAMELA RAMSEY Docume nted at: [facility] LORATADINE/PSEUDOEPHEDRINE TAB,SA Non-VA TAKE BY MOUTH No n-VA Documented by: JUAN LANG nted at: [facility] [...] ACID (REPLACES ACIPHEX) 180 Dec 19, 2019 [id number] August 26, 2019 PAMELA RAMSEY POLYETHYLENE GLYCOL [...] by: ANAYELI KIRKPATRICKume nted at: [facility] [place] [facility] TERBINAFINE HCL 1% CREAM,TOP Active APPLY LIGHT LY TO AFFECTED AREA TWO TIMES A DAY FOR INFECTION Sep 23, 2020 [id number] Sep 24, 2019 ADRIEL HERNANDEZ UREA 20% CREAM,TOP Active APPLY LIGHTLY (20%) TO AFFECTED AREA TWO TIMES A DAY NEEDED TO PROMOTE HEALING,RUB IN UNTIL COMPLETELY ABSORBED*FOR TOPICAL USE ONLY* APPLY TO BOTH FEET DIRECTED. 90 Sep 25, 2020 [id number] Sep 26, 2019 ADRIEL HERNANDEZ [facility] Problems (Conditions): All historical and [...] Alcohol intake above recommended sensible limits Active 742313031 PADMA LONG [facility] Allergic conjunctivitis Active 139892283 YPSILANTINEDA [facility] Bilateral senile combined form cataracts of eyes Active [id number] 9108 [facility] Bilateral tinnitus Active 8807781672379 CHASTITY JEAN [facility] Coronary arteriosclerosis Active 20939369 September 08, 2014 Entered By: PADMA LONG Comment: hx of ptca to RCA several yrs. agoSeptember 08, 2014 Entered By: PADMA LONG Comment: heart cath 09/01/14, neg. / previous stent to RCA,, via abida meneses ks HATCHER, JENNEY R [facility] Diabetes mellitus Active 92559616 [facility] Disorder of pancreas Active 6638370 September 08, 2014 Entered By: PADMA LONG Comment: 2.5cm low density lseion in bodyMay 2014 Entered By: PADMA LONG Comment: question of communication with pancreatic ductMay 2014 Entered By: PADMA LONG Comment: favored to be cystic pancreatic cancerMay 2014 Entered By: PADMA LONG Comment: per abdominal CT 09/01/14, via abida meneses ks FRAZIER, JAY J [facility] Dry eyes Active 808747512 [facility] SH[facility] Gastro-esophageal reflux disease without esophagitis ( SNOMED CT 142886341) Active 889250633 [facility] History of malignant neoplasm of lung Active 406627205 CHAPO BARRETO [facility] Hyperlipidemia (SNOMED CT 50772437) Active 74176624 BRAULIOPAMELA [facility] Lung mass Active 789835902 September 08, 2014 E ntered By: PADMA [...] mod. differentiated bronchogenic adenoca. 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 Active 65238713 KATHERINE MATT [facility] Obesity Active 657387418 [facility] Obstructive sleep apnea syndrome (SNOMED CT 46287840) Active 747403 015 PHILIPPE DOUGLASS [facility] Pancreatic cyst Active 67247872 JAYLENE AMEZCUA [facility] Papilloma of right eyelid Active 377404782983034 NEDA SHAW [facility] Polyp of colon Active 83649635 Jan 23 16 Entered By: PADMA LONG Comment: c-scope 01/17/16, multiple benign colonic polypsJun 28, 2017 Entered By: PADMA LONG Comment: c-scope,06/25/17,[facility], three benign polyps- sigmoid colon, transverse colon,cecum. see path report cprs SHARRON TORRES [facility] Pulmonary emphysema Active 66282744 0 BRIANA GAVIN [facility] Sensorineural hearing loss, bilateral Active 380486641 CHASTITY JEAN [facility] Snoring Active 98283016 SONG BULLOCK [facility] Type 2 diabetes mellitus without complication Active 366203868 [facility] [place] [facility] Environmental Allergies (ICD-9-CM 477.9) Inactive 477.9 Dec 18, 2017 [facility] External hemorrhoids without mention of complication (ICD-9- CM 455.3) Inactive 455.3 Dec 18, 2017 [facility] Impotence of organic origin (ICD-9-CM 607.84) Inactive 607.84 Dec 18, 2017 [facility] Screening for Lipoid disorders (ICD-9-CM V77.91) Inactive V77.91 Jan 18, 2007 [facility] Stye * (ICD-9-CM 373.11) Inactive 373.11 Dec 18, 8 Jan 18, 2007 Entered By: PADMA LONG Comment: bilat lower lids, chronic/recurrent [facility] Tobacco Use Disorder, Continuous [...] in a telehealth connection rather than a [id number] visit in the clinic. The patient was at home and I was in a private office at the [facility] away from the patient with the door [...] from most recent physical visits to the [place] (05/2019) Physical examination was unable to be [...] VA providers and non-VA providers. /frida AMEZCUA [employer] Signed: 08/07/2019 10:51 Receipt Acknowledged By: 08/08/2019 09:19 /frida MARLEY RN 08/07/2019 ADDENDUM STATUS: COMPLETED MRI above due 12/2019 then clinic fu to review results /frida AMEZCUA [employer] Signed: 08/07/2019 10:52 Receipt Acknowledged By: 08/08/2019 09:20 /frida MARLEY RN 08/08/2019 ADDENDUM STATUS: COMPLETED Would you please work with patient to determine type of pacemaker and if it is MRI compatible? I believe it should be, because he said he had an MRI at I think if his spine or thorax within the past 6 months. /frida AMEZCUA [employer] Signed: 08/08/2019 10:34 Receipt Acknowledged By: 08/08/2019 [...] Veterans MRI/MRCP has [facility] the [facility] future care MARIA ESTHER sheet and will order this on October 22, 2019. Attempted to contact this about this but I could not leave a message on the unidentifiable voicemail. /gisell/ JA QUINN RN Signed: 08/21/2019 15:19 ALF AMEZCUA LudaJuan M BLAS [facility] Aug 07, 2019 10:17 AM NURSING [...] or on hold? Yes Pt. states Outside Practicing Dermatologist stopped the Aspirin/Dipyridamole and started him on [...] guard, watchful, or easily startled? NO 4. [place] numb or detached from people, activities, or your surroundings? NO 5. [place] guilty or unable to stop blaming yourself [...] changes noted. Pt. states his outside [facility] Practicing Dermatologist changed his medication. He no longer takes [...] * AWAITING SIGNATURE * ADRIEL HERNANDEZ,JUAN BLAS [facility]
--- OUTSIDE RECORDS SUMMARY | 2019-12-02 13:08 | XMS REPORT | Encounter Summary ---
Author Author Department of [facility] HERBERTH kline Organization Department of [facility] Address [address] [place] [address] Phone Unavailable Care Team Providers Care Coater Operator Name Role Phone MARY, ADRIEL PCP Unavailable [...] right lower eyelid, including canthus KATHERINE MATT [facility] IHE Encounter Template Text not used by ID Assessments - Encounter Diagnoses This section includes the primary and secondary diag noses documented for the Encounter. 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 The data comes from all [facility]. Appointment Date/Time Appointment Type Appointment Facili ty Name Apr 28, 2019 11:00 AM AMBULATORY - NONE [facility] Jun 25, 2019 11:30 AM AMBULATORY - NONE [facility] Jun 25, 2019 01:15 PM AMBULATORY - MEDICINE [facility] Jul 23, 2019 11:00 AM AMBULATORY - NONE [facility] Jul 25, 2019 08:00 AM AMBULATORY - NONE [facility] Aug 07, 2019 10:30 AM AMBULATORY - MEDICINE [facility] Sep 23, 2019 11:15 AM AMBULATORY - NONE [facility] Sep 23, 2019 11:30 AM AMBULATORY - MEDICINE [facility] Oct 07, 2019 09:15 AM AMBULATORY - NONE [facility] T, VISN 15 Active, Pending, [...] Encounter. The data comes from all [facility]. Test Date/Time Test Type Test Details Facility Name Apr 01, 2019 10:33 AM Consult Order [facility] [id number] Cons Speedometer Mechanic's Choice [facility] Surgical Procedures: All associated to the [...] Range Comment Mar 21, 2019 08:55 AM [facility] HEMOGLOBIN A1C Specimen Type: BLOOD No [...] to adverse reactions to drug (diso rder) [facility] 15 PLAVIX September 08, 2014 Propensity to adverse reactions to drug (diso rder) [facility] 15 Medications: [facility] dispensed (-15 [...] TEST BLOOD GLUCOSE 50 Dec 19, 2019 [id number] September 04, 2019 PAMELA RAMSEY ACCU-CHEK CHARLES PLUS (GLUCOSE) TEST STRIP Discontinued USE 1 STRIP FOR TESTING TWO TIMES PER WEEK - DIRECTED TO TEST BLOOD GLUCOSE 50 Jul 25, 2019 [id number] Nov 12, 2018 PAMELA RAMSEY ALBUTEROL SO4 90MCG/ACTUAT (CFC-F) INHL,ORAL,6.7GM Active INHALE 2 PUFFS BY ORAL INHALATION EVERY 4 HOURS NEEDED FOR BREATHING. SHAKE WELL. RINSE MOUTHPIECE FREQUENTLY TO PREVENT CLOGGING. USE NEEDED FOR SHORTNESS OF AIR/WHEEZING FOR BREATHING. SHAKE WELL. RINSE MOUTHPIECE FREQUENTLY TO PREVENT CLOGGING. USE NEEDED FOR SHORTNESS OF AIR/WHEEZING 1 Dec 19, 2019 [id number] September 04, 2019 PAMELA RAMSEY ALCOHOL PREP PAD Active USE 1 PAD ON SKIN BIW TO CLEAN AND DISINFECT THE SKIN 200 Sep 29, 2020 [id number] Sep 30, 2019 [facility]ICIO RANKIN [facility] ALCOHOL PREP PAD Discontinued USE 1 PAD ON SKIN BI W TO CLEAN AND DISINFECT THE SKIN 200 Dec 19, 2019 [id number] Jun 06, 2019 PAMELA RAMSEY ALCOHOL PREP PAD Discontinued USE 1 PAD ON SKIN BI W TO CLEAN AND DISINFECT THE SKIN 200 Jul 25, 2019 [id number] Nov 12, 2018 PAMELA RAMSEY ASCORBIC ACID 250MG TAB Non-VA TAKE ONE TABLET BY MOUTH ONCE A DAY Non-VA Documented by: SHANIQUA SCHMIDT nted at: [facility] ASPIRIN 25MG/DIPYRIDAMOLE 200MG CAP,SA Active T CHAPIN 1 CAPSULE BY MOUTH TWO TIMES A DAY - SWALLOW WHOLE. DO NOT CRUSH OR CHEW. FOR RECURRENT TIA/STROKE 180 Dec 19, 2019 [id number] Dec 20, 2018 PAMELA RAMSEY ASPIRIN 25MG/DIPYRIDAMOLE 200MG CAP,SA Discontinued T CHAPIN 1 CAPSULE BY MOUTH TWO TIMES A DAY - SWALLOW WHOLE. DO NOT CRUSH OR CHEW. FOR RECURRENT TIA/STROKE 180 Feb 06, 2019 [id number] Sep 28, 2018 ZACHARY GRECO [facility] ASPIRIN 81MG TAB,EC Non- [facility] TAKE ONE TABLET BY MOUTH ONCE A DAY Non-VA Documented by: PADMA LONG nted at: [facility] ATORVASTATIN CA 80MG TAB Active TAKE ONE TABLET BY MOUTH AT BEDTIME FOR CHOLESTEROL - REPORT ANY UNEXPLAINED MUSCLE PAIN/WEAKNESS TO YOUR PROVIDER 90 Dec 19, 2019 [id number] September 04, 2019 PAMELA RAMSEY ATORVASTATIN CA 80MG TAB Discontinued TAKE ONE TABLET BY MOUTH AT BEDTIME FOR CHOLESTEROL - REPORT ANY UNEXPLAINED MUSCLE PAIN/WEAKNESS TO YOUR PROVIDER 90 Dec 20, 2018 [id number] Nov 12, 2018 PAMELA RAMSEY BUDESONIDE 160MCG/FORMOTEROL FUM 4.5MCG/SPRAY INHL,ORAL,10.2 GM Active INHALE 2 PUFFS BY MOUTH TWO TIMES A DAY FOR BREATHING. SHAKE WELL. RINSE MOUTH AND SPIT AFTER EACH USE. 3 Apr 24, 2020 [id number] August 22, 2019 LISSA OATES [facility] CALCIUM/VITAMIN D TAB No n-VA TAKE BY MOUTH ONCE A DAY Non-V A Documented by: PADMA LONG nted at: [facility] CARBOXYMETHYLCELLULOSE NA 0.5% SOLN,OPH Active INSTILL ONE DROP IN BOTH EYES FOUR TIMES A DAY FOR DRY EYES 15 Feb 01, 2020 [id number] September 03 0 NEDA SHAW [facility] DICLOFENAC NA 1% GEL,TOP Discontinued APPLY 2 GRAMS A FFECTED AREA TWO TIMES A DAY NEEDED FOR PAIN AND INFLAMMATION. DO NOT EXCEED 16GM DAILY TO ANY AFFECTED JOINT OF LOWER EXTREMITIES. DO NOT EXCEED 8GM DAILY TO ANY AFFECTED JOINT OF UPPER EXTREMITES. DO NOT EXCEED TOTAL DOSE OF 32GM DAILY FOR ALL JOINTS. 100 Oct 31, 2018 [id number] Oct 06, 2018 ANAYELI KIRKPATRICK [facility] DICLOFENAC NA 1% GEL,TOP APPLY 2 GRAMS A FFECTED AREA TWO TIMES A DAY NEEDED FOR PAIN AND INFLAMMATION. DO NOT EXCEED 16GM DAILY TO ANY AFFECTED JOINT OF LOWER EXTREMITIES. DO NOT EXCEED 8GM DAILY TO ANY AFFECTED JOINT OF UPPER EXTREMITES. DO NOT EXCEED TOTAL DOSE OF 32GM DAILY FOR ALL JOINTS. 100 Jan 17, 2019 [id number] Dec 20, 2018 PAMELA RAMSEY FLUTICASONE PROPIONATE 50MCG/SPRAY SOLN,NASAL,16GM Active INSTILL 1 SPRAY IN EACH NOSTRIL ONCE A DAY SHAKE GENTLY BEFORE USE! - MUST BE USED DIRECTED FOR 3 WEEKS TO PROVIDE BENEFIT. * NO EARLY REFILLS * 1UNIT = 30DAYS AT 4 PF/DAY OR 60DAYS AT 2PF/DAY 2 Dec 19, 2019 [id number] August 26, 2019 PAMELA RAMSEY KETOTIFEN 0.025% SOLN,OPH Active INSTILL 1 DROP IN BOTH EYES TWO TIMES A DAY FOR RELIEF OF ALLERGY SYMPTOMS IN EYE(S) Feb 01, 2020 [id number] September 04, 2019 NEDA SHAW [facility] LANCET,SOFTCLIX Active USE LANCET BIW FOR TESTING BL OOD GLUCOSE DIRECTED Sep 29, 2020 [id number] Sep 30, 2019 MAURICIO RANKIN LANCET,SOFTCLIX Discontinued USE LANCET BIW FO R TESTING BLOOD GLUCOSE DIRECTED Dec 19, 2019 [id number] Jun 06, 2019 PAMELA RAMSEY LANCET,SOFTCLIX Discontinued USE LANCET BIW FO R TESTING BLOOD GLUCOSE DIRECTED Jul 25, 2019 [id number] Nov 12, 2018 PAMELA RAMSEY LISINOPRIL 40MG TAB Non- [facility] TAKE ONE-HALF TABLET BY MOUTH EVERY MORNING Non-VA Documented by: PAMELA RAMSEY nted at: [facility] LORATADINE/PSEUDOEPHEDRINE TAB,SA Non-VA TAKE BY MOUTH No n-VA Documented by: JUAN LANG nted at: [facility] MAGNESIUM OXIDE 400MG TAB Non-VA TAKE [...] ACID (REPLACES ACIPHEX) 180 Dec 19, 2019 [id number] August 26, 2019 PAMELA RAMSEY POLYETHYLENE GLYCOL [...] Documented by: KATHERINE MATT Docume nted at: [facility] PREGABALIN 150MG CAP,ORAL Non-VA TAKE 1 CAPSULE BY MOUTH TWO TIMES A DAY Non-VA Docume nted by: PAMELA RAMSEY Docume nted at: [facility] SEMAGLUTIDE INJ,SOLN Non -VA INJECT SUBCUTANEOUSLY EVERY WEEK Non-VA Documented by: ANAYELI KIRKPATRICK Docume nted at: [facility] TERBINAFINE HCL 1% CREAM,TOP Active APPLY LIGHT LY TO AFFECTED AREA TWO TIMES A DAY FOR INFECTION 90 Sep 23, 2020 [id number] Sep 24, 2019 ADRIEL HERNANDEZ UREA 20% CREAM,TOP Active APPLY LIGHTLY (20%) TO AFFECTED AREA TWO TIMES A DAY NEEDED TO PROMOTE HEALING,RUB IN UNTIL COMPLETELY ABSORBED*FOR TOPICAL USE ONLY* APPLY TO BOTH FEET DIRECTED. 90 Sep 25, 2020 [id number] Sep 26, 2019 ADRIEL HERNANDEZ Problems (Conditions): [...] Alcohol intake above recommended sensible limits Active 480963184 PADMA LONG [facility] Allergic conjunctivitis Active 175070884 [facility] [facility] Bilateral senile combined form cataracts of eyes Active 25533589120 9108 N[place] SHAW [facility] Bilateral tinnitus Active 6521319777377 CHASTITY JEAN [facility] Coronary arteriosclerosis Active 91401668 September 08, 2014 Entered By: PADMA LONG Comment: hx of ptca to RCA several yrs. agoSeptember 08, 2014 Entered By: PADMA LONG Comment: heart cath 09/01/14, neg. / previous stent to RCA,, via abida meneses ks HATCHER, JENNEY R [facility] Diabetes mellitus Active 89156082 PAMELA RAMSEY [facility] Disorder of pancreas Active 1308114 September 08, 2014 Entered By: PADMA LONG Comment: 2.5cm low density lseion in bodyMay 2014 Entered By: PADMA LONG Comment: question of communication with pancreatic ductMay 2014 Entered By: PADMA LONG Comment: favored to be cystic pancreatic cancerMay 2014 Entered By: PADMA LONG Comment: per abdominal CT 09/01/14, via abida meneses ks FRAZIER, JAY J [facility] Dry eyes Active 472708505 [facility] Gastro-esophageal reflux disease without esophagitis ( SNOMED CT 211211936) Active 747837134 ALF GUEVARA [facility] History of malignant neoplasm of lung Active 038118789 CHAPO BARRETO [facility] Hyperlipidemia (SNOMED CT 56124066) Active 18660804 PAMELA RAMSEY [facility] Lung mass Active 523951614 September 08, 2014 E ntered By: PADMA LONG Comment: 4.5 cm mass, post. segment right upper lobe.September 08, 2014 Entered By: PADMA LONG Comment: mild adenopathy in mediastinum and bilat. hilaMay 2014 Entered By: PADMA LONG Comment: most likely related to lung cancerMay 2014 Entered By: PADMA LONG Comment: per ct angio of chest with contrast 09/01/14,via abida menesesiaJun 2014 Entered By: PADMA LONG Comment: per path report- mod. differentiated bronchogenic adenoca. 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 Active 09151022 KATHERINE MATT [facility] Obesity Active 393189842 [facility] Obstructive sleep apnea syndrome (SNOMED CT 93604469) Active 324598 015 [place] [facility] Pancreatic cyst Active 51423151 JAYLENE GUEVARA [facility] Papilloma of right eyelid Active 256258621024496 NEDA SHAW [facility] Polyp of colon Active 05408096 Jan 23 Entered By: PADMA LONG Comment: c-scope 01/17/16, multiple benign colonic polypsJun 28, 2017 Entered By: PADMA LONG Comment: c-scope,06/25/17,[facility], three benign polyps- sigmoid colon, transverse colon,cecum. see path report cprs SHARRON TORRES [facility] Pulmonary emphysema Active 77401998 0 BRIANA GAVIN [facility] Sensorineural hearing loss, bilateral Active 439051679 CHASTITY JEAN [facility] Snoring Active 17852900 SONG BULLOCK [facility] Type 2 diabetes mellitus without complication Active 169521826 N[place] SHAW [facility] Environmental Allergies (ICD-9-CM 477.9) Inactive 477.9 Dec 18, 2017 PADMA LONG [facility] External hemorrhoids without mention of complication (ICD-9- CM 455.3) Inactive 455.3 Dec 18, 2017 PADMA LONG [facility] Impotence of organic origin (ICD-9-CM 607.84) Inactive 607.84 Dec 18, 2017 PADMA LONG [facility] Screening for Lipoid disorders (ICD-9-CM V77.91) Inactive V77.91 Jan 18, 2007 PADMA LONG [facility] Stye * (ICD-9-CM 373.11) Inactive 373.11 Dec 18, 201 8 Jan 18, 2007 Entered By: PADMA LONG Comment: bilat lower lids, chronic/recurrent PADMA LONG [facility] Tobacco Use Disorder, Continuous Inactive 305.1 Dec 18, 2017 Jan 18, 2007 Entered By: PADMA LONG Comment: one ppd PADMA LONG [facility] Radiology Reports: +/- 30 days of [...] data comes from all ID treatment facilities. Date/Time Pathology Report Provider Source [...] 11:11) Microscopic examination is performed. DIAGNOSIS: Specimen: [id number] Spec Type: SURGICAL Abdulkadir: 04/03/19 Rec: 04/03/19-1241 PATHOLOGIC DIAGNOSIS Skin lesion, right upper cheek, biopsy: 1. Seborrheic keratosis, not involving resection margins. 2. Solar elastosis. Skin lesion, right lower mid margin, biopsy: 1. Seborrheic keratosis, with tumor at tissue edge/margin, but with benign features. LL COPIES TO: KATHERINE MATT [facility] PATHOLOGIST CODES: 84627/2 at 1230 The gross and microscopic examinations and interpretation were performed at [facility] Department of Pathology, [address] [place] [address]. Slides and paraffin blocks are on file at [facility]. =--=--=--=--=--=--=--=--=--=--=--=--=--=--=--=--=--=--=--=--=--=--=--=--=--=-- Performing Laboratory: Surgical Pathology Report Performed By: [facility] [CLIA# [id number]] [address] [place] [address] [facility] 15 Encounter Notes: All associated encounter notes This section contains the clinical notes associated to the Encounter. Date/Time Encounter Note(s) Provider Source Apr 14, 2019 09:57 AM OPHTHALMOLOGY NOTE: LOCAL TITLE: AL-EYE OPHTHALMOLOGY/FOLLOW-UP STANDARD TITLE: OPHTHALMOLOGY NOTE DATE OF [...] WELL. F/U PRN. /gisell/ KATHERINE MATT Staff Veterinary Technician Instructor Signed: 04/14/2019 10:16 KATHERINE MATT [facility] Apr 14, 2019 09:42 AM NURSING OUTPATIENT NOTE: LOCAL TITLE: AL-SPECIALTY PRE-APPT STANDARD TITLE: NURSING OUTPATIENT NOTE DATE [...] denies history of glaucoma. /gisell/ BRO HODGSON [employer] Signed: 04/14/2019 09:51 BRO HODGSON [facility]
--- OUTSIDE RECORDS SUMMARY | 2019-12-02 13:08 | XMS REPORT | Encounter Summary ---
Author Author Department of [facility] Organization Department of [facility] Affai rs Address [address] [place] [address] Phone Unavailable Care Team Providers Care Video Intern Name Role Phone ADRIEL HERNANDEZ PCP [...] Comments: Dietary counseling and surveillance GARY [facility] IHE Encounter Template Text not used by DC Assessments - Encounter Diagnoses This section includes the primary and secondary diag noses documented for the Encounter. Date/Time Primary/Secondary Diagnosis Diagnosis Name Provider Source Apr 28, 2019 11:00 AM PRIMARY Dietary counseling and rain veillance TASHA [facility] Apr 28, 2019 11:00 AM SECONDARY Body mass index (BMI) 31.0 -31.9, adult TASHA [facility] Apr 28, 2019 11:00 AM SECONDARY Obesity, unspecified Sophia [facility] Apr 28, 2019 11:00 AM SECONDARY Type 2 diabetes mellitus w ithout complications NOETASHA Katz ARTUR [facility] Plan of Treatment: Future Appointments (+ 6 months) and Future Tests (+/- 45 day s) The Plan of Treatment section includes future care activities for the patient fr om all [facility] facilities. This section includes future appointments and fu ture orders which are active, pending or scheduled. Future Appointments This section includes appointments that were scheduled t o occur 6 months from the date of the Encounter, up to a maximum of 20 appointme nts. The data comes from all [facility]. Appointment Date/Time Appointment Type Appointment Facili ty Name Jun 25, 2019 11:30 AM AMBULATORY - NONE [facility] Jun 25, 2019 01:15 PM AMBULATORY - MEDICINE [facility] Jul 23, 2019 11:00 AM [facility] NONE [facility] Jul 25, 2019 08:00 AM [facility] NONE [facility] Aug 07, 2019 10:30 AM AMBULATORY - MEDICINE [facility] Sep 23, 2019 11:15 AM AMBULATORY - NONE [facility] Sep 23, 2019 11:30 AM AMBULATORY - MEDICINE [facility] Oct 07, 2019 09:15 AM AMBULATORY - NONE [facility] 15 Active, Pending, and [...] The data comes from all [facility]. Test Date/Time Test Type Test Details Facility Name Apr 01, 2019 10:33 AM Consult Order [id number] Cons Secretary Bookkeeper's Choice [facility] Surgical Procedures: All associated to the [...] and tobacco- related health factors from the [place] facility where the Encounter took place. Current Smoking Status This section includes the most current smoking, or tobacco -related health factor, from the [place] facility where the Encounter took place. Date/Time Current Smoking Status Comment Facility Jun 26, 2018 02:13 PM VA-TOBACCO QUIT 15 YRS OR MORE [facility] Tobacco Use History This section includes a history of the smoking, or tobacco -related health factors, that were collected on or before the date of the Encoun ter. The data comes from the [place] facility where the Encounter took place. Date/Time Smoking Status/Tobacco Use Comment [facility] Jun 26, 2018 02:13 PM VA-TOBACCO QUIT 15 YRS OR MORE [facility]SHA [facility] Jun 27, 2017 01:39 PM NON-TOBACCO [...] to adverse reactions to drug (diso rder) [facility] PLAVIX September 08, 2014 Propensity to adverse reactions to drug (diso rder) [facility] Medications: VA dispensed [...] TEST BLOOD GLUCOSE 50 Dec 19, 2019 [id number] September 04, 2019 PAMELA RAMSEY ACCU-CHEK CHARLES PLUS (GLUCOSE) TEST STRIP Discontinued USE 1 STRIP FOR TESTING TWO TIMES PER WEEK - DIRECTED TO TEST BLOOD GLUCOSE 50 Jul 25, 2019 [id number] Nov 12, 2018 PAMELA RAMSEY ALBUTEROL SO4 90MCG/ACTUAT (CFC-F) INHL,ORAL,6.7GM Active INHALE 2 PUFFS BY ORAL INHALATION EVERY 4 HOURS NEEDED FOR BREATHING. SHAKE WELL. RINSE MOUTHPIECE FREQUENTLY TO PREVENT CLOGGING. USE NEEDED FOR SHORTNESS OF AIR/WHEEZING FOR BREATHING. SHAKE WELL. RINSE MOUTHPIECE FREQUENTLY TO PREVENT CLOGGING. USE NEEDED FOR SHORTNESS OF AIR/WHEEZING 1 Dec 19, 2019 [id number] September 04, 2019 PAMELA RAMSEY CB ALCOHOL PREP PAD Active USE 1 PAD ON SKIN BIW TO CLEAN AND DISINFECT THE SKIN 200 Sep 29, 2020 [id number] Sep 30, 2019 MAURICIO RANKIN [facility] ALCOHOL PREP PAD Discontinued USE 1 PAD ON SKIN BI W TO CLEAN AND DISINFECT THE SKIN 200 Dec 19, 2019 [id number] Jun 06, 2019 PAMELA RAMSEY [facility] ALCOHOL PREP PAD Discontinued USE 1 PAD ON SKIN BI W TO CLEAN AND DISINFECT THE SKIN 200 Jul 25, 2019 [id number] Nov 12, 2018 PAMELA RAMSEY CBGUILLERMO ASCORBIC ACID 250MG TAB Non-VA TAKE ONE TABLET BY MOUTH ONCE A DAY Non-VA Documented by: SHANIQUA SCHMIDT nted at: [facility] ASPIRIN 25MG/DIPYRIDAMOLE 200MG CAP,SA Active T CHAPIN 1 CAPSULE BY MOUTH TWO TIMES A DAY - SWALLOW WHOLE. DO NOT CRUSH OR CHEW. FOR RECURRENT TIA/STROKE 180 Dec 19, 2019 [id number] Dec 20, 2018 PAMELA RAMSEY [facility] ASPIRIN 25MG/DIPYRIDAMOLE 200MG CAP,SA Discontinued T CHAPIN 1 CAPSULE BY MOUTH TWO TIMES A DAY - SWALLOW WHOLE. DO NOT CRUSH OR CHEW. FOR RECURRENT TIA/STROKE 180 Feb 06, 2019 [id number] Sep 28, 2018 ZACHARY GRECO [facility] ASPIRIN 81MG TAB,EC Non- VA TAKE ONE TABLET BY MOUTH ONCE A DAY Non-VA Documented by: PADMA LONG nted at: [facility] ATORVASTATIN CA 80MG TAB Active TAKE ONE TABLET BY MOUTH AT BEDTIME FOR CHOLESTEROL - REPORT ANY UNEXPLAINED MUSCLE PAIN/WEAKNESS TO YOUR PROVIDER 90 Dec 19, 2019 [id number] September 04, 2019 PAMELA RAMSEY ATORVASTATIN CA 80MG TAB Discontinued TAKE ONE TABLET BY MOUTH AT BEDTIME FOR CHOLESTEROL - REPORT ANY UNEXPLAINED MUSCLE PAIN/WEAKNESS TO YOUR PROVIDER 90 Dec 20, 2018 [id number] Nov 12, 2018 PAMELA RAMSEY BUDESONIDE 160MCG/FORMOTEROL FUM 4.5MCG/SPRAY INHL,ORAL,10.2 GM Active INHALE 2 PUFFS BY MOUTH TWO TIMES A DAY FOR BREATHING. SHAKE WELL. RINSE MOUTH AND SPIT AFTER EACH USE. 3 Apr 24, 2020 [id number] August 22, 2019 LISSA OATES [facility] CALCIUM/VITAMIN D TAB No n-VA TAKE BY MOUTH ONCE A DAY Non-V A Documented by: PADMA LONG nted at: [facility] CARBOXYMETHYLCELLULOSE NA 0.5% SOLN,OPH Active INSTILL ONE DROP IN BOTH EYES FOUR TIMES A DAY FOR DRY EYES 15 Feb 01, 2020 [id number] September 03 0 [facility] DICLOFENAC NA 1% GEL,TOP Discontinued APPLY 2 GRAMS A FFECTED AREA TWO TIMES A DAY NEEDED FOR PAIN AND INFLAMMATION. DO NOT EXCEED 16GM DAILY TO ANY AFFECTED JOINT OF LOWER EXTREMITIES. DO NOT EXCEED 8GM DAILY TO ANY AFFECTED JOINT OF UPPER EXTREMITES. DO NOT EXCEED TOTAL DOSE OF 32GM DAILY FOR ALL JOINTS. 100 Oct 31, 2018 [id number] Oct 06, 2018 ANAYELI KIRKPATRICK [facility] DICLOFENAC NA 1% GEL,TOP APPLY 2 GRAMS A FFECTED AREA TWO TIMES A DAY NEEDED FOR PAIN AND INFLAMMATION. DO NOT EXCEED 16GM DAILY TO ANY AFFECTED JOINT OF LOWER EXTREMITIES. DO NOT EXCEED 8GM DAILY TO ANY AFFECTED JOINT OF UPPER EXTREMITES. DO NOT EXCEED TOTAL DOSE OF 32GM DAILY FOR ALL JOINTS. 100 Jan 17, 2019 [id number] Dec 20, 2018 PAMELA RAMSEY [facility] FLUTICASONE PROPIONATE 50MCG/SPRAY SOLN,NASAL,16GM Active INSTILL 1 SPRAY IN EACH NOSTRIL ONCE A DAY SHAKE GENTLY BEFORE USE! - MUST BE USED DIRECTED FOR 3 WEEKS TO PROVIDE BENEFIT. * NO EARLY REFILLS * 1UNIT = 30DAYS AT 4 PF/DAY OR 60DAYS AT 2PF/DAY 2 Dec 19, 2019 [id number] August 26, 2019 PAMELA RAMSEY [facility] KETOTIFEN 0.025% SOLN,OPH Active INSTILL 1 DROP IN BOTH EYES TWO TIMES A DAY FOR RELIEF OF ALLERGY SYMPTOMS IN EYE(S) 10 Feb 01, 2020 [id number] September 04, 2019 [facility] LANCET,SOFTCLIX Active USE LANCET BIW FOR TESTING BL OOD GLUCOSE DIRECTED 100 Sep 29, 2020 [id number] Sep 30, 2019 MAURICIO RANKIN [facility] LANCET,SOFTCLIX Discontinued USE LANCET BIW FO R TESTING BLOOD GLUCOSE DIRECTED 100 Dec 19, 2019 [id number] Jun 06, 2019 PAMELA RAMSEY LANCET,SOFTCLIX Discontinued USE LANCET BIW FO R TESTING BLOOD GLUCOSE DIRECTED 100 Jul 25, 2019 [id number] Nov 12, 2018 PAMELA RAMSEY LISINOPRIL 40MG TAB Non- VA TAKE ONE-HALF TABLET BY MOUTH EVERY MORNING Non-VA Documented by: PAMELA RAMSEY nted at: [facility] LORATADINE/PSEUDOEPHEDRINE TAB,SA Non-VA TAKE BY MOUTH No n-VA Documented by: JUAN LANG nted at: [facility] MAGNESIUM OXIDE 400MG TAB Non-VA TAKE [...] ACID (REPLACES ACIPHEX) 180 Dec 19, 2019 [id number] August 26, 2019 PAMELA RAMSEY POLYETHYLENE GLYCOL [...] Non-VA Documented by: KATHERINE MATT nted at: [facility] PREGABALIN 150MG CAP,ORAL Non-VA TAKE 1 CAPSULE BY MOUTH TWO TIMES A DAY Non-VA Docume nted by: PAMELA RAMSEY nted at: [facility] SEMAGLUTIDE INJ,SOLN Non -VA INJECT SUBCUTANEOUSLY EVERY WEEK Non-VA Documented by: ANAYELI KIRKPATRICK nted at: ARTUR Shu [facility] TERBINAFINE HCL 1% CREAM,TOP Active APPLY LIGHT LY TO AFFECTED AREA TWO TIMES A DAY FOR INFECTION 90 Sep 23, 2020 [id number] Sep 24, 2019 ADRIEL HERNANDEZ UREA 20% CREAM,TOP Active APPLY LIGHTLY (20%) TO AFFECTED AREA TWO TIMES A DAY NEEDED TO PROMOTE HEALING,RUB IN UNTIL COMPLETELY ABSORBED*FOR TOPICAL USE ONLY* APPLY TO BOTH FEET DIRECTED. 90 Sep 25, 2020 [id number] Sep 26, 2019 ADRIEL HERNANDEZ Problems (Conditions): [...] Alcohol intake above recommended sensible limits Active 831090300 PADMA LONG [facility] Allergic conjunctivitis Active 259990076 PARISFACUNDONEDA Luda [facility] Bilateral senile combined form cataracts of eyes Active 29055246461 9108 [facility] Luda [facility] Bilateral tinnitus Active 1614638310096 CHASTITY JEAN [facility] Coronary arteriosclerosis Active 18369886 September 08, 2014 Entered By: PADMA LONG Comment: hx of ptca to RCA several yrs. 2014 Entered By: PADMA LONG Comment: heart cath 09/01/14, neg. 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 Entered By: PADMA LONG Comment: per abdominal CT 09/01/14, via [place], [place] PADMA LONG [facility] Dry eyes Active 428198696 NEDA SHAW [facility] Gastro-esophageal reflux disease without esophagitis ( SNOMED CT 626047424) Active 602301517 ALF GUEVARA [facility] History of malignant neoplasm of lung Active 749664425 CHAPO BARRETO [facility] Hyperlipidemia (SNOMED CT 99718451) Active 04862429 PAMELA RAMSEY [facility] Lung mass Active 204661758 September 08, 2014 E ntered By: PADMA LONG Comment: 4.5 cm mass, post. segment right upper lobe.September 08, 2014 Entered By: PADMA LONG Comment: mild adenopathy in mediastinum and bilat. hilaMay 2014 Entered By: PADMA LONG Comment: most likely related to lung cancerMay 2014 Entered By: PADMA LONG Comment: per ct angio of chest with contrast 09/01/14,via [place], [place] 2014 Entered By: PADMA LONG Comment: per path report- mod. differentiated bronchogenic adenoca. 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 Active 25984538 [facility] Obesity Active 519140788 [facility] Obstructive sleep apnea syndrome (SNOMED CT 02415919) Active 038402 015 PHILIPPE DOUGLASS [facility] Pancreatic cyst Active 87163525 JAYLENE GUEVARA [facility] Papilloma of right eyelid Active [id number] NEDA SHAW [facility] Polyp of colon Active 54163980 Jan 23 16 Entered By: PADMA LONG Comment: c-scope 01/17/16, multiple benign colonic polypsMar 2017 Entered By: PADMA LONG Comment: c-scope,06/25/17,[facility], three benign polyps- sigmoid colon, transverse colon,cecum. see path report cprs SHARRON TORRES [facility] Pulmonary emphysema Active 75633182 0 BRIANA LESLYE [facility] Sensorineural hearing loss, bilateral Active 528740089 CHASTITY JEAN [facility] Snoring Active 13017240 SONG BULLOCK [facility] Type 2 diabetes mellitus without complication Active 396279935 NEDA SHAW [facility] Environmental Allergies (ICD-9-CM 477.9) Inactive 477.9 Dec 18, 2017 PADMA LONG [facility] External hemorrhoids without mention of complication (ICD-9- CM 455.3) Inactive 455.3 Dec 18, 2017 PADMA LONG [facility] Impotence of organic origin (ICD-9-CM 607.84) Inactive 607.84 Dec 18, 2017 PADMA LONG [facility] Screening for Lipoid disorders (ICD-9-CM V77.91) Inactive V77.91 Jan 18, 2007 PADMA LONG [facility] Stye * (ICD-9-CM 373.11) Inactive 373.11 Dec 18, 8 Jan 18, 2007 Entered By: PADMA LONG Comment: bilat lower lids, chronic/recurrent PADMA LONG [facility] Tobacco Use Disorder, Continuous Inactive 305.1 Dec 18, 2017 Jan 18, 2007 Entered By: PADMA LONG Comment: one ppd PADMA LONG [facility] Radiology Reports: +/- 30 days of [...] data comes from all [place] treatment facilities. Date/Time Pathology Report Provider Source [...] 11:11) Microscopic examination is performed. DIAGNOSIS: Specimen: [id number] Spec Type: SURGICAL Abdulkadir: 04/03/19 Rec: 04/03/19-1241 PATHOLOGIC DIAGNOSIS Skin lesion, right upper cheek, biopsy: 1. Seborrheic keratosis, not involving resection margins. 2. Solar elastosis. Skin lesion, right lower mid margin, biopsy: 1. Seborrheic keratosis, with tumor at tissue edge/margin, but with benign features. LL COPIES TO: KATHERINE MATT [facility] PATHOLOGIST CODES: 21114/2 at 1235 The gross and microscopic examinations and interpretation were performed at [facility] Department of Pathology, [address] [place] [address]. Slides and paraffin blocks are on file at [facility]. =--=--=--=--=--=--=--=--=--=--=--=--=--=--=--=--=--=--=--=--=--=--=--=--=--=-- Performing Laboratory: Surgical Pathology Report Performed By: [facility] [CLIA# [id number]] [address] [place] [address] EDWARD [facility] 15 Encounter Notes: All associated encounter notes [...] 20 minutes. RDN called and spoke with Elmer. Reason for Call/Diagnosis: DM2; Class I obesity [...] 161 197 H 44 77.6 Subjective Data: Elmer states: he's had a rough month-had 4 more stents placed & COPD flaired up again; will be moving back to [place] the end of this month-has worked in [employer] for past 6-7 years; is in cardiac rehab for 30 sessions-has had 5 so far; gained 5# over the holidays; bs's have been good in gucyrncz-[id number]/dl-started on Ozembic and Metformin was decreased in half; he and will join [facility] when she gets there. Plan: Provided contact information for Elmer to call with questions or to schedule a future appointment with the dietitian. /gisell/ GARY ARANDAS,RD,LD,CDE CLINICAL DIETITIAN Signed: 04/28/2019 11:23 ELN,GARY [facility]
--- OUTSIDE RECORDS SUMMARY | 2019-12-02 13:08 | XMS REPORT | Encounter Summary ---
Author Author Department [facility] HERBERTH kline Organization Department of [facility] Address [address] [place] [address] Phone Unavailable Care Team Providers Care Pharmacy Specialist Name Role Phone ADRIEL HERNANDEZ PCP Unavailable Insurance Providers: All historical and current No Data Provided for This Section Selected Encounter This section includes the information on record at [place] for the Encounter. Date/Time Encounter Type Encounter Description Reason Provider Source Jun 17, 2019 04:24 PM Outpatient Encounter [facility] 15 IHE Encounter Template Text [...] 11:30 AM AMBULATORY - NONE ARTUR BLAS [facility] Jun 25, 2019 01:15 PM AMBULATORY - MEDICINE ARTUR BLAS [facility] Jul 23, 2019 11:00 AM AMBULATORY - NONE ARTUR BLAS [facility] Jul 25, 2019 08:00 AM AMBULATORY - NONE ARTUR BLAS [facility] C Aug 07, 2019 10:30 AM AMBULATORY - MEDICINE ARTUR BLAS [facility] Sep 23, 2019 11:15 AM AMBULATORY - NONE [facility] Sep 23, 2019 11:30 AM AMBULATORY - MEDICINE [facility] Oct 07, 2019 09:15 AM AMBULATORY - NONE [facility], VISN 15 Active, [...] 2019 10:07 AM Consult Order [facility][id number] Cons Card Services Specialist's Choice [facility] Surgical Procedures: All associated to [...] Jun 25, 2019 10:48 AM ARTUR BLAS [facility] CBC & DIFF Specimen Type: [...] Jun 25, 2019 10:[address] [place] [facility] CA 19-9 Specimen Type: SERUM Comment: CA 19-9 This test was performed using the Siemens chemiluminescent method. Values obtained from different assay methods cannot be used inter- changeably. CA 19-9 levels, regardless of value, should not be interpreted as absolute evidence of the presence or absence of disease. CA 19-9 7 U/mL <34 Jun 25, 2019 10:[address] [facility] COMPREHENSIVE METABOLI C PANEL Specimen Type: [...] Jun 25, 2019 10:[address] [facility] CREATININE (INCLUDES E GFR) Specimen Type: [...] to adverse reactions to drug (diso rder) [facility], VISN 15 PLAVIX September 08, 2014 Propensity to adverse reactions to drug (diso rder) [facility], V[facility]N 15 Medications: VA [...] TEST BLOOD GLUCOSE 50 Dec 19, 2019 [id number] September 04, 2019 PAMELA RAMSEY ACCU-CHEK CHARLES PLUS (GLUCOSE) TEST STRIP Discontinued USE 1 STRIP FOR TESTING TWO TIMES PER WEEK - DIRECTED TO TEST BLOOD GLUCOSE 50 Jul 25, 2019 [id number] Nov 12, 2018 PAMELA RAMSEY ALBUTEROL SO4 90MCG/ACTUAT (CFC-F) INHL,ORAL,6.7GM Active INHALE 2 PUFFS BY ORAL INHALATION EVERY 4 HOURS NEEDED FOR BREATHING. SHAKE WELL. RINSE MOUTHPIECE FREQUENTLY TO PREVENT CLOGGING. USE NEEDED FOR SHORTNESS OF AIR/WHEEZING FOR BREATHING. SHAKE WELL. RINSE MOUTHPIECE FREQUENTLY TO PREVENT CLOGGING. USE NEEDED FOR SHORTNESS OF AIR/WHEEZING 1 Dec 19, 2019 [id number] September 04, 2019 PAMELA RAMSEY ALCOHOL PREP PAD Active USE 1 PAD ON SKIN BIW TO CLEAN AND DISINFECT THE SKIN 200 Sep 29, 2020 [id number] Sep 30, 2019 MAURICIO RANKIN ALCOHOL PREP PAD Discontinued USE 1 PAD ON SKIN BI W TO CLEAN AND DISINFECT THE SKIN 200 Dec 19, 2019 [id number] Jun 06, 2019 PAMELA RAMSEY ALCOHOL PREP PAD Discontinued USE 1 PAD ON SKIN BI W TO CLEAN AND DISINFECT THE SKIN 200 Jul 25, 2019 [id number] Nov 12, 2018 PAMELA RAMSEY ASCORBIC ACID 250MG TAB Non-VA TAKE ONE TABLET BY MOUTH ONCE A DAY Non-VA Documented by: SHANIQUA SCHMIDT nted at: [facility] ASPIRIN 25MG/DIPYRIDAMOLE 200MG CAP,SA Active T CHAPIN 1 CAPSULE BY MOUTH TWO TIMES A DAY - SWALLOW WHOLE. DO NOT CRUSH OR CHEW. FOR RECURRENT TIA/STROKE 180 Dec 19, 2019 [id number] Dec 20, 2018 PAMELA RAMSEY ASPIRIN 25MG/DIPYRIDAMOLE 200MG CAP,SA Discontinued T CHAPIN 1 CAPSULE BY MOUTH TWO TIMES A DAY - SWALLOW WHOLE. DO NOT CRUSH OR CHEW. FOR RECURRENT TIA/STROKE 180 Feb 06, 2019 [id number] Sep 28, 2018 ZACHARY GRECO [facility] ASPIRIN 81MG TAB,EC Non- [place] TAKE ONE TABLET BY MOUTH ONCE A DAY Non-VA Documented by: PADMA LONG nted at: [facility] ATORVASTATIN CA 80MG TAB Active TAKE ONE TABLET BY MOUTH AT BEDTIME FOR CHOLESTEROL - REPORT ANY UNEXPLAINED MUSCLE PAIN/WEAKNESS TO YOUR PROVIDER Dec 19, 2019 [id number] September 04, 2019 PAMELA RAMSEY ATORVASTATIN CA 80MG TAB Discontinued TAKE ONE TABLET BY MOUTH AT BEDTIME FOR CHOLESTEROL - REPORT ANY UNEXPLAINED MUSCLE PAIN/WEAKNESS TO YOUR PROVIDER 90 Dec 20, 2018 [id number] Nov 12, 2018 PAMELA RAMSEY BUDESONIDE 160MCG/FORMOTEROL FUM 4.5MCG/SPRAY INHL,ORAL,10.2 GM Active INHALE 2 PUFFS BY MOUTH TWO TIMES A DAY FOR BREATHING. SHAKE WELL. RINSE MOUTH AND SPIT AFTER EACH USE. 3 Apr 24, 2020 [id number] August 22, 2019 LISSA OATES [facility] CALCIUM/VITAMIN D TAB No n-VA TAKE BY MOUTH ONCE A DAY Non-V A Documented by: PADMA LONG nted at: [facility] CARBOXYMETHYLCELLULOSE NA 0.5% SOLN,OPH Active INSTILL ONE DROP IN BOTH EYES FOUR TIMES A DAY FOR DRY EYES Feb 01, 2020 [id number] September 03 0 NEDA SHAW [facility] DICLOFENAC NA 1% GEL,TOP Discontinued APPLY 2 GRAMS A FFECTED AREA TWO TIMES A DAY NEEDED FOR PAIN AND INFLAMMATION. DO NOT EXCEED 16GM DAILY TO ANY AFFECTED JOINT OF LOWER EXTREMITIES. DO NOT EXCEED 8GM DAILY TO ANY AFFECTED JOINT OF UPPER EXTREMITES. DO NOT EXCEED TOTAL DOSE OF 32GM DAILY FOR ALL JOINTS. 100 Oct 31, 2018 [id number] Oct 06, 2018 ANAYELI KIRKPATRICK [facility] FOR ALL JOINTS. 100 Jan 17, 2019 [id number] Dec 20, 2018 PAMELA RAMSEY FLUTICASONE PROPIONATE 50MCG/SPRAY SOLN,NASAL,16GM Active INSTILL 1 SPRAY IN EACH NOSTRIL ONCE A DAY SHAKE GENTLY BEFORE USE! - MUST BE USED DIRECTED FOR 3 WEEKS TO PROVIDE BENEFIT. * NO EARLY REFILLS * 1UNIT = 30DAYS AT 4 PF/DAY OR 60DAYS AT 2PF/DAY 2 Dec 19, 2019 [id number] August 26, 2019 PAMELA RAMSEY KETOTIFEN 0.025% SOLN,OPH Active INSTILL 1 DROP IN BOTH EYES TWO TIMES A DAY FOR RELIEF OF ALLERGY SYMPTOMS IN EYE(S) Feb 01, 2020 [id number] September 04, 2019 NEDA HSAW [facility] LANCET,SOFTCLIX Active USE LANCET BIW FOR TESTING BL OOD GLUCOSE DIRECTED Sep 29, 2020 [id number] Sep 30, 2019 MAURICIO RANKIN [facility] LANCET,SOFTCLIX Discontinued USE LANCET BIW FO R TESTING BLOOD GLUCOSE DIRECTED Dec 19, 2019 [id number] Jun 06, 2019 PAMELA RAMSEY [facility] LANCET,SOFTCLIX Discontinued USE LANCET BIW FO R TESTING BLOOD GLUCOSE DIRECTED Jul 25, 2019 [id number] Nov 12, 2018 PAMELA RAMSEY LISINOPRIL 40MG TAB Non- [place] TAKE ONE-HALF TABLET BY MOUTH EVERY MORNING Non-VA Documented by: PAMELA RAMSEY nted at: [facility] LORATADINE/PSEUDOEPHEDRINE TAB,SA Non-VA TAKE BY MOUTH No n-VA Documented by: JUAN LANG nted at: ARTUR BLAS [facility] MAGNESIUM OXIDE 400MG TAB Non-VA [...] ACID (REPLACES ACIPHEX) 180 Dec 19, 2019 [id number] August 26, 2019 PAMELA RAMSEY POLYETHYLENE GLYCOL [...] Non-VA Documented by: KATHERINE MATTume nted at: [facility] PREGABALIN 150MG CAP,ORAL Non-VA TAKE 1 CAPSULE BY MOUTH TWO TIMES A DAY Non-VA Docume nted by: PAMELA RAMSEY nted at: [facility] SEMAGLUTIDE INJ,SOLN Non -VA INJECT SUBCUTANEOUSLY EVERY WEEK Non-VA Documented by: ANAYELI KIRKPATRICKume nted at: ARTUR BLAS [facility] TERBINAFINE HCL 1% CREAM,TOP Active APPLY LIGHT LY TO AFFECTED AREA TWO TIMES A DAY FOR INFECTION 90 Sep 23, 2020 [id number] Sep 24, 2019 ADRIEL HERNANDEZ UREA 20% CREAM,TOP Active APPLY LIGHTLY (20%) TO AFFECTED AREA TWO TIMES A DAY NEEDED TO PROMOTE HEALING,RUB IN UNTIL COMPLETELY ABSORBED*FOR TOPICAL USE ONLY* APPLY TO BOTH FEET DIRECTED. 90 Sep 25, 2020 [id number] Sep 26, 2019 ADRIEL HERNANDEZ Problems (Conditions): All historical and current Section Date Range: From patient's date of to the date document was create d. This section includes a list of Problems (Conditions) know n to [place] for the patient. It includes both active and inacti ve problems (conditions). The data comes from all [place] treatment facilities. Problem Status Problem Code Date of Onset Date of Resolution Comm ent(s) Provider Source Alcohol intake above recommended sensible limits Active 806085506 PADMA LONG [facility] Allergic conjunctivitis Active 065370250 [place] [facility] Bilateral senile combined form cataracts of eyes Active 26427582322 9108 [place] [facility] Bilateral tinnitus Active 5225703469172 CHASTITY JEAN [facility] Coronary arteriosclerosis Active 46064473 September 08, 2014 Entered By: PADMA LONG Comment: hx of ptca to RCA several yrs. agoMa2014 Entered By: PADMA LONG Comment: heart cath 09/01/14, neg. / previous stent to RCA,, via abida meneses,KALA Will [facility] Diabetes mellitus Active 06555710 BRAULIOPAMELA TOMAS [facility] Disorder of pancreas Active 1399431 September 08, 2014 Entered By: PADMA LONG Comment: 2.5cm low density lseion in bodyMay 2014 Entered By: PADMA LONG Comment: question of communication with pancreatic ductMay 2014 Entered By: PADMA LONG Comment: favored to be cystic pancreatic cancerMay 2014 Entered By: PADMA LONG Comment: per abdominal CT 09/01/14, via abida meneses,PADMA Pradhan [facility] Dry eyes Active 789070972 NEDA SHAW [facility] Gastro-esophageal reflux disease without esophagitis ( SNOMED CT 972166984) Active 580836140 ALF GUEVARA [facility] History of malignant neoplasm of lung Active 198622842 CHAPO BARRETO [facility] Hyperlipidemia (SNOMED CT 77469085) Active 85374157 BRAULIOPAMELA [facility] Lung mass Active 123441635 September 08, 2014 E ntered By: PADMA LONG Comment: 4.5 cm mass, post. segment right upper lobe.September 08, 2014 Entered By: PADMA LONG Comment: mild adenopathy in mediastinum and bilat. hilaMay 2014 Entered By: PADMA LONG Comment: most likely related to lung cancerMa2014 Entered By: PADMA LONG Comment: per ct angio of chest with [facility] 09/01/14[facility] Entered By: PADMA LONG Comment: per path report- mod. differentiated bronchogenic adenoca. PADMA LONG 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 Obesity Active 380474160 [facility] [facility] Obstructive sleep apnea syndrome (SNOMED CT 72019034) Active 160300 015 PHILIPPE DOUGLASS [facility] Pancreatic cyst Active 51343717 JAYLENE GUEVARA [facility] Papilloma of right eyelid Active [id number] NEDA SHAW [facility] Polyp of colon Active 79518903 Jan 23 16 Entered By: PADMA LONG Comment: c-scope 01/17/16, multiple benign colonic polypsJun 28, 2017 Entered By: PADMA LONG Comment: c-scope,06/25/17,[facility], three benign polyps- sigmoid colon, transverse colon,cecum. see path report cprs SHARRON TORRES [facility] Pulmonary emphysema Active 46820329 0 BRIANA GAVIN [facility] Sensorineural hearing loss, bilateral Active 519422040 CHASTITY JEAN [facility] Snoring Active 38151241 SONG BULLOCK [facility] Type 2 diabetes mellitus without complication Active 524290546 NEDA SHAW [facility] Environmental Allergies (ICD-9-CM 477.9) Inactive 477.9 Dec 18, 2017 PADMA LONG [facility] External hemorrhoids without mention of complication (ICD-9- CM 455.3) Inactive 455.3 Dec 18, 2017 PADMA LONG [facility] Impotence of organic origin (ICD-9-CM 607.84) Inactive 607.84 Dec 18, 2017 PADMA LONG [facility] Screening for Lipoid disorders (ICD-9-CM V77.91) Inactive V77.91 Jan 18, 2007 PADMA LONG [facility] Stye * (ICD-9-CM 373.11) [...] of the Encounter. The data comes from [facility] facilities. Date/Time Radiology Report Provider Source Jun 25, 2019 10:[address] CHEST/THORAX W/CONT: HERBERTH BBO JUNG [id number] -1955 M Exm Date: JUN 25, 2019@10:47 Req Phys: CHAPO BARRETO Loc: [place]-ONCOLOGY 3 (Req'g Loc) Img Loc: [place] (RAD) Service: Unknown (Case [id number] COMPLETE) CT CHEST/THORAX W/C ONT (CT Detailed) CPT:88210 Contrast Media : Non-ionic Iodinated Reason for Study: annual survellance Clinical History: NSCLCA hx Report Status: Verified Date Reported: JUN 25, 2019 Date Verified: JUN 25, 2019 Program Therapist E-Sig: Report: INDICATION: annual survellance non-small cell [...] NEEDED Primary Interpreting Staff: RALPH GUZMAN, Radiologist (Program Therapist, no e-sig) /DCRALPH MILES [facility], VISN 15 Jun 25, 2019 10:[address] ABD & PELV W/CONTRAST: HERBERTH BOB [id number] -1955 M Exm Date: JUN 25, 2019@10:47 Req Phys: CHAPO BARRETO Pat Loc: [place]-ONCOLOGY 3 (Req'g Loc) Img Loc: [place] (RAD) Service: Unknown (Case [id number] COMPLETE) CT ABD & PELV W/CON TRAST (CT Detailed) CPT:89199 Contrast Media : Non-ionic Iodinated Reason for Study: surveillance Clinical History: NSCLCA hx Report Status: Verified Date Reported: JUN 25, 2019 Date Verified: JUN 25, 2019 Program Therapist E-Sig: Report: INDICATION: surveillance non-small cell lung [...] REQUIRED Primary Interpreting Staff: RALPH GUZMAN, Radiologist (Program Therapist, no e-sig) /RALPH MORLEY [facility], VISN 15 Pathology Reports: +/- 30 days [...] DATE: JUN 17, 2019@16:24:18 AUTHOR: RAZ MARQUEZ EXP COSIGNER: URGENCY: STATUS: COMPLETED Clinical Note: RFS received via right fax Requested Services: Cardiology is requesting continuation of care. Provider: Dr. Beba Serna Dx: CAD Sending documents via secure email for your review. Please place [facility] cardiology consult if agree with need. /gisell/ RAZ MARQUEZ Signed: 06/17/2019 16:27 Receipt Acknowledged By: * AWAITING SIGNATURE * PAMELA RAMSEY * AWAITING SIGNATURE * SHANIQUA SCHMIDT MARTINE E [facility]
--- OUTSIDE RECORDS SUMMARY | 2019-12-02 13:09 | XMS REPORT | Encounter Summary ---
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 Date/Time Encounter Type Encounter Description Reason Provider Source Apr 03, 2019 10:01 AM Outpatient Encounter EVENT (HISTORICAL) [facility] 15 IHE Encounter Template Text not used by [place] Assessments - Encounter Diagnoses No Data Provided for This Section Plan of Treatment: Future Appointments (+ 6 months) and Future Tests (+/- 45 day s) The Plan of Treatment section includes future care activities for the patient fr om all [place] treatment facilities. This section includes future appointments and fu ture orders which are active, pending or scheduled. Future Appointments This section includes appointments that were scheduled t o occur 6 months from the date of the Encounter, up to a maximum of 20 appointme nts. The data comes from all [place] treatment facilities. Appointment Date/Time Appointment Type Appointment Facili ty Name Apr 14, 2019 10:00 AM AMBULATORY - SURGERY [facility] Apr 28, 2019 11:00 AM AMBULATORY [...] [facility] [place] 23, 2019 11:15 AM [facility] - NONE [facility] Sep 23, 2019 11:30 AM AMBULATORY - MEDICINE [facility] Active, Pending, and Scheduled Orders This section [...] the Encounter. The data comes from all [place] treatment facilities. Test Date/Time Test Type Test Details Facility Name Apr 01, 2019 10:33 AM Consult Order [facility] [id number] Cons Suede Cleaner's Choice [facility] Surgical Procedures: All associated to the encounter No Data Provided for This Section Lab Results: +/- 30 days of the encounter This section includes the Chemistry and Hematology Lab R esults on record with [place] for the patient. Radiology Reports and Pathology Report s are provided separately, in subsequent sections. Lab Results This section contains the Chemistry/Hematology Results usha t were resulted 30 days before or 30 days after the date of the Encounter. Date/Time Source Result Type Result - Unit Interpretation Reference Range Comment Mar 21, 2019 08:55 AM [facility] HEMOGLOBIN A1C Specimen [...] Adverse Reactions (ADR s) on record with [place] for the patient. The data comes from a ll [place] treatment facilities. It does not list Allergies/ADRs that were removed or entered in error. Some allergies/ADRs may be reported in t he Immunization section. Allergen Event Date Event Type Reaction(s) Severity Source [place] September 08, 2014 Propensity to adverse reactions to drug (diso rder) [facility] 15 [place] September 08, 2014 Propensity to adverse reactions to drug (diso rder) [facility] 15 Medications: VA dispensed (-15 months) and Non-VA Documented (Obtained Outside V A) Section Date Range: 1) prescriptions processed by a [facility] pharmacy in the last 15 m [facility], and 2) all medications recorded in the [place] medical record as "non-VA medic ations". Pharmacy terms refer to [place] pharmacy's work on prescriptions. [place] patient s are advised to take their medications as instructed by their health care team. The data comes from all [place] treatment facilities. Glossary of Pharmacy Terms:Active = A prescription that can be filled at the local [place] pharmacy.Active: On Hold = An active prescription that will not be filled until pharmacy resolves the issue.Active: Susp = An active prescription that is not scheduled to be filled yet.Clinic Order = A medication received during a visit to a [place] clinic or emergency department (currently not available).Discontinued [...] TEST BLOOD GLUCOSE 50 Dec 19, 2019 [id number] September 04, 2019 PAMELA RAMSEY GUILLERMO ACCU-CHEK CHARLES PLUS (GLUCOSE) TEST STRIP Discontinued USE 1 STRIP FOR TESTING TWO TIMES PER WEEK - DIRECTED TO TEST BLOOD GLUCOSE 50 Jul 25, 2019 [id number] Nov 12, 2018 PAMELA RAMSEY ALBUTEROL SO4 90MCG/ACTUAT (CFC-F) INHL,ORAL,6.7GM Active INHALE 2 PUFFS BY ORAL INHALATION EVERY 4 HOURS NEEDED FOR BREATHING. SHAKE WELL. RINSE MOUTHPIECE FREQUENTLY TO PREVENT CLOGGING. USE NEEDED FOR SHORTNESS OF AIR/WHEEZING FOR BREATHING. SHAKE WELL. RINSE MOUTHPIECE FREQUENTLY TO PREVENT CLOGGING. USE NEEDED FOR SHORTNESS OF AIR/WHEEZING 1 Dec 19, 2019 [id number] September 04, 2019 PAMELA RAMSEY CBGUILLERMO ALCOHOL PREP PAD Active USE 1 PAD ON SKIN BIW TO CLEAN AND DISINFECT THE SKIN 200 Sep 29, 2020 [id number] Sep 30, 2019 MAURICIO RANKIN [facility] ALCOHOL PREP PAD Discontinued USE 1 PAD ON SKIN BI W TO CLEAN AND DISINFECT THE SKIN 200 Dec 19, 2019 [id number] Jun 06, 2019 PAMELA RAMSEY CBGUILLERMO ALCOHOL PREP PAD Discontinued USE 1 PAD ON SKIN BI W TO CLEAN AND DISINFECT THE SKIN 200 Jul 25, 2019 [id number] Nov 12, 2018 PAMELA RAMSEY ASCORBIC ACID 250MG TAB Non-VA TAKE ONE TABLET BY MOUTH ONCE A DAY Non-VA Documented by: SHANIQUA SCHMIDT nted at: [facility] ASPIRIN 25MG/DIPYRIDAMOLE 200MG CAP,SA Active T CHAPIN 1 CAPSULE BY MOUTH TWO TIMES A DAY - SWALLOW WHOLE. DO NOT CRUSH OR CHEW. FOR RECURRENT TIA/STROKE 180 Dec 19, 2019 [id number] Dec 20, 2018 PAMELA RAMSEY [facility] ASPIRIN 25MG/DIPYRIDAMOLE 200MG CAP,SA Discontinued T CHAPIN 1 CAPSULE BY MOUTH TWO TIMES A DAY - SWALLOW WHOLE. DO NOT CRUSH OR CHEW. FOR RECURRENT TIA/STROKE 180 Feb 06, 2019 [id number] Sep 28, 2018 ZACHARY GRECO [facility] ASPIRIN 81MG TAB,EC Non- [place] TAKE ONE TABLET BY MOUTH ONCE A DAY Non-VA Documented by: PADMA LONG nted at: [facility] ATORVASTATIN CA 80MG TAB Active TAKE ONE TABLET BY MOUTH AT BEDTIME FOR CHOLESTEROL - REPORT ANY UNEXPLAINED MUSCLE PAIN/WEAKNESS TO YOUR PROVIDER 90 Dec 19, 2019 [id number] September 04, 2019 PAMELA RAMSEYONS [place] ATORVASTATIN CA 80MG TAB Discontinued TAKE ONE TABLET BY MOUTH AT BEDTIME FOR CHOLESTEROL - REPORT ANY UNEXPLAINED MUSCLE PAIN/WEAKNESS TO YOUR PROVIDER 90 Dec 20, 2018 [id number] Nov 12, 2018 PAMELA RAMSEY BUDESONIDE 160MCG/FORMOTEROL FUM 4.5MCG/SPRAY INHL,ORAL,10.2 GM Active INHALE 2 PUFFS BY MOUTH TWO TIMES A DAY FOR BREATHING. SHAKE WELL. RINSE MOUTH AND SPIT AFTER EACH USE. 3 Apr 24, 2020 [id number] August 22, 2019 LISSA OATES [facility] CALCIUM/VITAMIN D TAB No n-VA TAKE BY MOUTH ONCE A DAY Non-V A Documented by: PADMA LONG nted at: [facility] CARBOXYMETHYLCELLULOSE NA 0.5% SOLN,OPH Active INSTILL ONE DROP IN BOTH EYES FOUR TIMES A DAY FOR DRY EYES 15 Feb 01, 2020 [id number] September 03 0 NEDA SHAW [facility] DICLOFENAC NA 1% GEL,TOP Discontinued APPLY 2 GRAMS A FFECTED AREA TWO TIMES A DAY NEEDED FOR PAIN AND INFLAMMATION. DO NOT EXCEED 16GM DAILY TO ANY AFFECTED JOINT OF LOWER EXTREMITIES. DO NOT EXCEED 8GM DAILY TO ANY AFFECTED JOINT OF UPPER EXTREMITES. DO NOT EXCEED TOTAL DOSE OF 32GM DAILY FOR ALL JOINTS. 100 Oct 31, 2018 [id number] Oct 06, 2018 ANAYELI KIRKPATRICK [facility] DICLOFENAC NA 1% GEL,TOP APPLY 2 GRAMS A FFECTED AREA TWO TIMES A DAY NEEDED FOR PAIN AND INFLAMMATION. DO NOT EXCEED 16GM DAILY TO ANY AFFECTED JOINT OF LOWER EXTREMITIES. DO NOT EXCEED 8GM DAILY TO ANY AFFECTED JOINT OF UPPER EXTREMITES. DO NOT EXCEED TOTAL DOSE OF 32GM DAILY FOR ALL JOINTS. 100 Jan 17, 2019 [id number] Dec 20, 2018 PAMELA RAMSEY FLUTICASONE PROPIONATE 50MCG/SPRAY SOLN,NASAL,16GM Active INSTILL 1 SPRAY IN EACH NOSTRIL ONCE A DAY SHAKE GENTLY BEFORE USE! - MUST BE USED DIRECTED FOR 3 WEEKS TO PROVIDE BENEFIT. * NO EARLY REFILLS * 1UNIT = 30DAYS AT 4 PF/DAY OR 60DAYS AT 2PF/DAY 2 Dec 19, 2019 [id number] August 26, 2019 PAMELA RAMSEY KETOTIFEN 0.025% SOLN,OPH Active INSTILL 1 DROP IN BOTH EYES TWO TIMES A DAY FOR RELIEF OF ALLERGY SYMPTOMS IN EYE(S) 10 Feb 01, 2020 [id number] September 04, 2019 NEDA SHAW [facility] LANCET,SOFTCLIX Active USE LANCET BIW FOR TESTING BL OOD GLUCOSE DIRECTED 100 Sep 29, 2020 [id number] Sep 30, 2019 MAURICIO RANKIN LANCET,SOFTCLIX Discontinued USE LANCET BIW FO R TESTING BLOOD GLUCOSE DIRECTED 100 Dec 19, 2019 [id number] Jun 06, 2019 PAMELA RAMSEY LANCET,SOFTCLIX Discontinued USE LANCET BIW FO R TESTING BLOOD GLUCOSE DIRECTED Jul 25, 2019 [id number] Nov 12, 2018 PAMELA RAMSEY LISINOPRIL 40MG TAB Non- [place] TAKE ONE-HALF TABLET BY MOUTH EVERY MORNING Non-VA Documented by: PAMELA RAMSEY Docume nted at: [facility] LORATADINE/PSEUDOEPHEDRINE TAB,SA Non-VA TAKE BY MOUTH No n-VA Documented by: JUAN LANGume nted at: ARTUR BLAS [facility] MAGNESIUM OXIDE 400MG TAB Non-VA TAKE [...] ACID (REPLACES ACIPHEX) 180 Dec 19, 2019 [id number] August 26, 2019 PAMELA RAMSEY POLYETHYLENE GLYCOL [...] KATHERINE MATT Docume nted at: [facility] PREGABALIN 150MG CAP,ORAL Non-VA TAKE 1 CAPSULE BY MOUTH TWO TIMES A DAY Non-VA Docume nted by: PAMELA RAMSEY Docume nted at: [facility] SEMAGLUTIDE INJ,SOLN Non -VA INJECT SUBCUTANEOUSLY EVERY WEEK Non-[place] Documented by: ANAYELI KIRKPATRICK Docume nted at: [facility] TERBINAFINE HCL 1% CREAM,TOP Active APPLY LIGHT LY TO AFFECTED AREA TWO TIMES A DAY FOR INFECTION Sep 23, 2020 [id number] Sep 24, 2019 ADRIEL HERNANDEZ UREA 20% CREAM,TOP Active APPLY LIGHTLY (20%) TO AFFECTED AREA TWO TIMES A DAY NEEDED TO PROMOTE HEALING,RUB IN UNTIL COMPLETELY ABSORBED*FOR TOPICAL USE ONLY* APPLY TO BOTH FEET DIRECTED. Sep 25, 2020 [id number] Sep 26, 2019 ADRIEL HERNANDEZ Problems (Conditions): All historical and current Section Date Range: From patient's date of to the date document was create d. This section includes a list of Problems (Conditions) know n to [place] for the patient. It includes both active and inacti ve problems (conditions). The data comes from all [place] treatment facilities. Problem Status Problem Code Date of Onset Date of Resolution Comm ent(s) Provider Source Alcohol intake above recommended sensible limits Active 334990096 PADMA LONG [facility] Allergic conjunctivitis Active 589700479 NEDA SHAW [facility] Bilateral senile combined form cataracts of eyes Active 53452437359 9108 NEDA SHAW [facility] Bilateral tinnitus Active [id number] [facility] Coronary arteriosclerosis Active 43927937 September 08, 2014 Entered By: PADMA LONG Comment: hx of ptca to RCA several yrs. agoSeptember 08, 2014 Entered By: PADMA LONG Comment: heart cath 09/01/14, neg. / previous stent to RCA,, via abida menesesaz KALA JONES [facility] Diabetes mellitus Active 15456125 PAMELA RAMSEY [facility] Disorder of pancreas Active 6336838 September 08, 2014 Entered By: PADMA LONG Comment: 2.5cm low density lseion in bodyMay 2014 Entered By: PADMA LONG Comment: question of communication with pancreatic ductMa2014 Entered By: PADMA LONG Comment: favored to be cystic pancreatic cancerSeptember 08, 2014 Entered By: PADMA LONG Comment: per abdominal CT 09/01/14, via abida menesesaz PADMA LONG [facility] Dry eyes Active 496711401 NEDA SHAW [facility] Gastro-esophageal reflux disease without esophagitis ( SNOMED CT 601377882) Active 109915806 ALF GUEVARA [facility] History of malignant neoplasm of lung Active 060792561 CHAPO BARRETO [facility] Hyperlipidemia (SNOMED CT 25717558) Active 86180789 PAMELA RAMSEY [facility] Lung mass Active 708124942 September 08, 2014 E ntered By: PADMA LONG Comment: 4.5 cm mass, post. segment right upper lobe.September 08, 2014 Entered By: PADMA LONG Comment: mild adenopathy in mediastinum and bilat. hilaMa2014 Entered By: PADMA LONG Comment: most likely related to lung cancerSeptember 08, 2014 Entered By: PADMA LONG Comment: per ct angio of chest with contrast 09/01/14,via abida menesesazSep 23, 2014 Entered By: PADMA LONG Comment: per path report- mod. differentiated bronchogenic adenoca. 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 Active 27506882 KATHERINE MATT [facility] Obesity Active 591147838 [facility] Obstructive sleep apnea syndrome (SNOMED CT 26350126) Active 832939 015 PHILIPPE DOUGLASS [facility] Pancreatic cyst Active 22386656 JAYLENE GUEVARA [facility] Papilloma of right eyelid Active 312877016027437 NEDA SHAW [facility] Polyp of colon Active 55563298 Jan 23 Entered By: PADMA LONG Comment: c-scope 01/17/16, multiple benign colonic polypsJun 28, 2017 Entered By: PADMA LONG Comment: c-scope,06/25/17,md-[facility], three benign polyps- sigmoid colon, transverse colon,cecum. see path report cprs SHARRON TORRES [facility] Pulmonary emphysema Active 53142667 0 BRIANA GAVIN [facility] Sensorineural hearing loss, bilateral Active 669429840 CHASTITY JEAN [facility] Snoring Active 34432624 SONG BULLOCK [facility] Type 2 diabetes mellitus without complication Active 427935821 NEDA SHAW [facility] Environmental Allergies (ICD-9-CM 477.9) Inactive 477.9 Dec 18, 2017 PADMA LONG [facility] External hemorrhoids without mention of complication (ICD-9- CM 455.3) Inactive 455.3 Dec 18, 2017 PADMA LONG [facility] Impotence of organic origin (ICD-9-CM 607.84) Inactive 607.84 Dec 18, 2017 PADMA LONG [facility] Screening for Lipoid disorders (ICD-9-CM V77.91) Inactive V77.91 Jan 18, 2007 PADMA LONG [facility] Stye * (ICD-9-CM 373.11) Inactive 373.11 Dec 18, 201 8 Jan 18, 2007 Entered By: PADMA LONG Comment: bilat lower lids, chronic/recurrent PADMA LONG [facility] Tobacco Use Disorder, Continuous Inactive 305.1 Dec 18, 2017 Jan 18, 2007 Entered By: PADMA LONG Comment: one ppd PADMA LONG [facility] Radiology Reports: +/- 30 days of [...] the Encounter. The data comes from all [place] treatment facilities. Date/Time Pathology Report Provider Source [...] 11:11) Microscopic examination is performed. DIAGNOSIS: Specimen: [id number] Spec Type: SURGICAL Abdulkadir: 04/03/19 Rec: 04/03/19-1241 PATHOLOGIC DIAGNOSIS Skin lesion, right upper cheek, biopsy: 1. Seborrheic keratosis, not involving resection margins. 2. Solar elastosis. Skin lesion, right lower mid margin, biopsy: 1. Seborrheic keratosis, with tumor at tissue edge/margin, but with benign features. LL COPIES TO: KATHERINE MATT [facility] PATHOLOGIST CODES: 69743/2 at 1235 The gross and microscopic examinations and interpretation were performed at [facility] Department of Pathology, [address] [place] [id number]. Slides and paraffin blocks are on file at [facility]. =--=--=--=--=--=--=--=--=--=--=--=--=--=--=--=--=--=--=--=--=--=--=--=--=--=-- Performing Laboratory: Surgical Pathology Report Performed By: [facility] [CLIA# [id number]] [address] [place] [id number] [facility] LAN[facility] 15 Encounter Notes: All associated encounter notes No Data Provided for This Section
--- OUTSIDE RECORDS SUMMARY | 2019-12-02 13:09 | XMS REPORT | Encounter Summary ---
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 Date/Time Encounter Type Encounter Description Reason Provider Source Mar 21, 2019 10:01 AM OFFICE/OUTPATIENT VISIT EST SLEEP MEDICINE ICD-10-CM G47.33 Obstructive sleep apnea (adult) (pediatric) with Provider Comments: Obstructive sleep apnea (adult) (pediatric) [facility] IHE Encounter Template Text not used by [place] Assessments - Encounter Diagnoses This section includes the primary and secondary diag noses documented for the Encounter. Date/Time Primary/Secondary Diagnosis Diagnosis Name Provider Source Mar 26, 2019 09:36 AM PRIMARY Obstructive sleep apnea (a dult) (pediatric) [facility] Plan of Treatment: Future Appointments (+ 6 months) and Future Tests (+/- 45 day s) The Plan of Treatment section includes future care activities for the patient fr om all [place] treatment facilities. This section includes future appointments and fu ture orders which are active, pending or scheduled. Future Appointments This section includes appointments that were scheduled t o occur 6 months from the date of the Encounter, up to a maximum of 20 appointme nts. The data comes from all [facility]. Appointment Date/Time Appointment Type Appointment Facili ty Name Mar 26, 2019 10:00 AM AMBULATORY - NONE [facility] Apr 03, 2019 10:00 AM AMBULATORY - SURGERY [facility] Apr 14, 2019 10:00 AM AMBULATORY - SURGERY [facility] Apr 28, 2019 11:00 AM AMBULATORY - NONE [facility] Jun 25, 2019 11:30 AM AMBULATORY - NONE [facility] Jun 25, 2019 01:15 PM AMBULATORY - MEDICINE [facility] Shu [facility] Jul 23, 2019 11:00 AM AMBULATORY - NONE [facility] Jul 25, 2019 08:00 AM AMBULATORY - NONE [facility] Aug 07, 2019 10:30 AM AMBULATORY - MEDICINE [facility] Shu LEVIMila [facility] Active, Pending, and Scheduled Orders This [...] the Encounter. The data comes from all [facility]. Test Date/Time Test Type Test Details Facility Name Apr 01, 2019 10:33 AM Consult Order [id number] Cons Sales Development Associate's Choice [facility] Surgical Procedures: All associated to the encounter No Data Provided for This Section Lab Results: +/- 30 days of the encounter This section includes the Chemistry and Hematology Lab R esults on record with [place] for the patient. Radiology Reports and Pathology Report s are provided separately, in subsequent sections. Lab Results This section contains the Chemistry/Hematology Results usha t were resulted 30 days before or 30 days after the date of the Encounter. Date/Time Source Result Type Result - Unit Interpretation Reference Range Comment Mar 21, 2019 08:55 AM [facility] HEMOGLOBIN A1C Specimen Type: BLOOD No [...] and tobacco- related health factors from the [place] facility where the Encounter took place. Current Smoking Status This section includes the most current smoking, or tobacco -related health factor, from the [place] facility where the Encounter took place. Date/Time Current Smoking Status Comment Facility Jun 26, 2018 02:13 PM VA-TOBACCO QUIT 15 YRS OR MORE [facility] Tobacco Use History This section includes a history of the smoking, or tobacco -related health factors, that were collected on or before the date of the Encoun ter. The data comes from the [place] facility where the Encounter took place. Date/Time Smoking Status/Tobacco Use Comment [facility] Jun 26, 2018 02:13 PM VA-TOBACCO QUIT 15 YRS OR MORE [facility] Jun 27, 2017 01:39 PM NON-TOBACCO [...] patient. The data comes from a ll [place] treatment facilities. It does not list Allergies/ADRs that were removed or entered in error. Some allergies/ADRs may be reported in t Immunization section. Allergen Event Date Event Type Reaction(s) Severity Source [place] September 08, 2014 Propensity to adverse reactions to drug (diso rder) [facility] 15 [place] September 08, 2014 Propensity to adverse reactions to drug (diso rder) [facility] 15 Medications: VA dispensed (-15 months) and Non-VA Documented (Obtained Outside V A) Section Date Range: 1) prescriptions processed by a VA pharmacy in the last 15 m [facility], and 2) all medications recorded in the VA medical record as "non-VA medic ations". Pharmacy terms refer to VA pharmacy's work on prescriptions. VA patient s are advised to take their medications as instructed by their health care team. The data comes from all [place] treatment facilities. Glossary of Pharmacy Terms:Active = A prescription that can be filled at the local VA pharmacy.Active: On Hold = An active prescription that will not be filled until pharmacy resolves the issue.Active: Susp = An active prescription that is not scheduled to be filled yet.Clinic Order = A medication received during a visit to a [place] clinic or emergency department (currently not available).Discontinued [...] TEST BLOOD GLUCOSE 50 Dec 19, 2019 [id number] September 04, 2019 PAMELA RAMSEY [facility] ACCU-CHEK CHARLES PLUS (GLUCOSE) TEST STRIP Discontinued USE 1 STRIP FOR TESTING TWO TIMES PER WEEK - DIRECTED TO TEST BLOOD GLUCOSE 50 Jul 25, 2019 [id number] Nov 12, 2018 PAMELA RAMSEY ALBUTEROL SO4 90MCG/ACTUAT (CFC-F) INHL,ORAL,6.7GM Active INHALE 2 PUFFS BY ORAL INHALATION EVERY 4 HOURS NEEDED FOR BREATHING. SHAKE WELL. RINSE MOUTHPIECE FREQUENTLY TO PREVENT CLOGGING. USE NEEDED FOR SHORTNESS OF AIR/WHEEZING FOR BREATHING. SHAKE WELL. RINSE MOUTHPIECE FREQUENTLY TO PREVENT CLOGGING. USE NEEDED FOR SHORTNESS OF AIR/WHEEZING Dec 19, 2019 [id number] September 04, 2019 PAMELA RAMSEY ALCOHOL PREP PAD Active USE 1 PAD ON SKIN BIW TO CLEAN AND DISINFECT THE SKIN 200 Sep 29, 2020 [id number] Sep 30, 2019 MAURICIO RANKIN [facility] ALCOHOL PREP PAD Discontinued USE 1 PAD ON SKIN BI W TO CLEAN AND DISINFECT THE SKIN 200 Dec 19, 2019 [id number] Jun 06, 2019 PAMELA RAMSEY CBGUILLERMO ALCOHOL PREP PAD Discontinued USE 1 PAD ON SKIN BI W TO CLEAN AND DISINFECT THE SKIN 200 Jul 25, 2019 [id number] Nov 12, 2018 PAMELA RAMSEY ASCORBIC ACID 250MG TAB Non-VA TAKE ONE TABLET BY MOUTH ONCE A DAY Non-VA Documented by: SHANIQUA SCHMIDT nted at: [facility] ASPIRIN 25MG/DIPYRIDAMOLE 200MG CAP,SA Active T CHAPIN 1 CAPSULE BY MOUTH TWO TIMES A DAY - SWALLOW WHOLE. DO NOT CRUSH OR CHEW. FOR RECURRENT TIA/STROKE 180 Dec 19, 2019 [id number] Dec 20, 2018 PAMELA RAMSEY [facility] ASPIRIN 25MG/DIPYRIDAMOLE 200MG CAP,SA Discontinued T CHAPIN 1 CAPSULE BY MOUTH TWO TIMES A DAY - SWALLOW WHOLE. DO NOT CRUSH OR CHEW. FOR RECURRENT TIA/STROKE 180 Feb 06, 2019 [id number] Sep 28, 2018 ZACHARY GRECO V [facility] ASPIRIN 81MG TAB,EC Non- VA TAKE ONE TABLET BY MOUTH ONCE A DAY Non-VA Documented by: PADMA LONG nted at: [facility] ATORVASTATIN CA 80MG TAB Active TAKE ONE TABLET BY MOUTH AT BEDTIME FOR CHOLESTEROL - REPORT ANY UNEXPLAINED MUSCLE PAIN/WEAKNESS TO YOUR PROVIDER 90 Dec 19, 2019 [id number] September 04, 2019 PAMELA RAMSEY ATORVASTATIN CA 80MG TAB Discontinued TAKE ONE TABLET BY MOUTH AT BEDTIME FOR CHOLESTEROL - REPORT ANY UNEXPLAINED MUSCLE PAIN/WEAKNESS TO YOUR PROVIDER 90 Dec 20, 2018 [id number] Nov 12, 2018 PAMELA RAMSEY BUDESONIDE 160MCG/FORMOTEROL FUM 4.5MCG/SPRAY INHL,ORAL,10.2 GM Active INHALE 2 PUFFS BY MOUTH TWO TIMES A DAY FOR BREATHING. SHAKE WELL. RINSE MOUTH AND SPIT AFTER EACH USE. 3 Apr 24, 2020 [id number] August 22, 2019 [facility] CALCIUM/VITAMIN D TAB No n-VA TAKE BY MOUTH ONCE A DAY Non-V A Documented by: PADMA LONG nted at: [facility] CARBOXYMETHYLCELLULOSE NA 0.5% SOLN,OPH Active INSTILL ONE DROP IN BOTH EYES FOUR TIMES A DAY FOR DRY EYES Feb 01, 2020 [id number] September 03 0 [facility] DICLOFENAC NA 1% GEL,TOP Discontinued APPLY 2 GRAMS A FFECTED AREA TWO TIMES A DAY NEEDED FOR PAIN AND INFLAMMATION. DO NOT EXCEED 16GM DAILY TO ANY AFFECTED JOINT OF LOWER EXTREMITIES. DO NOT EXCEED 8GM DAILY TO ANY AFFECTED JOINT OF UPPER EXTREMITES. DO NOT EXCEED TOTAL DOSE OF 32GM DAILY FOR ALL JOINTS. 100 Oct 31, 2018 [id number] Oct 06, 2018 ANAYELI KIRKPATRICK [facility] DICLOFENAC NA 1% GEL,TOP APPLY 2 GRAMS A FFECTED AREA TWO TIMES A DAY NEEDED FOR PAIN AND INFLAMMATION. DO NOT EXCEED 16GM DAILY TO ANY AFFECTED JOINT OF LOWER EXTREMITIES. DO NOT EXCEED 8GM DAILY TO ANY AFFECTED JOINT OF UPPER EXTREMITES. DO NOT EXCEED TOTAL DOSE OF 32GM DAILY FOR ALL JOINTS. 100 Jan 17, 2019 [id number] Dec 20, 2018 PAMELA RAMSEY FLUTICASONE PROPIONATE 50MCG/SPRAY SOLN,NASAL,16GM Active INSTILL 1 SPRAY IN EACH NOSTRIL ONCE A DAY SHAKE GENTLY BEFORE USE! - MUST BE USED DIRECTED FOR 3 WEEKS TO PROVIDE BENEFIT. * NO EARLY REFILLS * 1UNIT = 30DAYS AT 4 PF/DAY OR 60DAYS AT 2PF/DAY 2 Dec 19, 2019 [id number] August 26, 2019 PAMELA RAMSEY KETOTIFEN 0.025% SOLN,OPH Active INSTILL 1 DROP IN BOTH EYES TWO TIMES A DAY FOR RELIEF OF ALLERGY SYMPTOMS IN EYE(S) Feb 01, 2020 [id number] September 04, 2019 [facility] LANCET,SOFTCLIX Active USE LANCET BIW FOR TESTING BL OOD GLUCOSE DIRECTED 100 Sep 29, 2020 [id number] Sep 30, 2019 [facility]ICIO RANKIN [facility] LANCET,SOFTCLIX Discontinued USE LANCET BIW FO R TESTING BLOOD GLUCOSE DIRECTED 100 Dec 19, 2019 [id number] Jun 06, 2019 PAMELA RAMSEY LANCET,SOFTCLIX Discontinued USE LANCET BIW FO R TESTING BLOOD GLUCOSE DIRECTED Jul 25, 2019 [id number] Nov 12, 2018 PAMELA RAMSEY LISINOPRIL 40MG [...] ACID (REPLACES ACIPHEX) 180 Dec 19, 2019 [id number] August 26, 2019 PAMELA RAMSYE POLYETHYLENE GLYCOL 3350 PWDR,ORAL Non-VA TAKE 1 [...] Documented by: KATHERINE MATT nted at: [facility] PREGABALIN 150MG CAP,ORAL Non-VA TAKE 1 CAPSULE BY MOUTH TWO TIMES A DAY Non-VA Docume nted by: PAMELA RAMSEY Docume nted at: [facility] SEMAGLUTIDE INJ,SOLN Non -VA INJECT SUBCUTANEOUSLY EVERY WEEK Non-VA Documented by: ANAYELI KIRKPATRICK Docume nted at: [facility] [place] [facility] TERBINAFINE HCL 1% CREAM,TOP Active APPLY LIGHT LY TO AFFECTED AREA TWO TIMES A DAY FOR INFECTION Sep 23, 2020 [id number] Sep 24, 2019 ADRIEL HERNANDEZ UREA 20% CREAM,TOP Active APPLY LIGHTLY (20%) TO AFFECTED AREA TWO TIMES A DAY NEEDED TO PROMOTE HEALING,RUB IN UNTIL COMPLETELY ABSORBED*FOR TOPICAL USE ONLY* APPLY TO BOTH FEET DIRECTED. 90 Sep 25, 2020 [id number] Sep 26, 2019 ADRIEL HERNANDEZ Problems (Conditions): All historical and current Section Date Range: From patient's date of to the date document was create d. This section includes a list of Problems (Conditions) know n to [place] for the patient. It includes both active and inacti ve problems (conditions). The data comes from all [place] treatment facilities. Problem Status Problem Code Date of Onset Date of Resolution Comm ent(s) Provider Source Alcohol intake above recommended sensible limits Active [id number] [facility] Allergic conjunctivitis Active 315374483 [facility] Bilateral senile combined form cataracts of eyes Active 31287426846 9108 [facility] Bilateral tinnitus Active 1762074537045 CHASTITY JEAN [facility] Coronary arteriosclerosis Active 10188465 September 08, 2014 Entered By: PADMA LONG Comment: hx of ptca to RCA several yrs. 2014 Entered By: PADMA LONG Comment: heart cath 09/01/14, neg. / previous stent to RCA,, [place] HATCHER, JENNEY R [facility] Diabetes mellitus Active 69833636 [facility] RAM[facility] Disorder of pancreas Active 3388489 September 08, 2014 Entered By: PADMA LONG Comment: 2.5cm low density lseion in bodyMay 2014 Entered By: PADMA LONG Comment: question of communication with pancreatic ductMay 2014 Entered By: PADMA LONG Comment: favored to be cystic pancreatic cancerMay 2014 Entered By: PADMA LONG Comment: per abdominal CT 09/01/14, via [place] PADMA LONG [facility] Dry eyes Active 234005715 NEDA SHAW Juan M [facility] Gastro-esophageal reflux disease without esophagitis ( SNOMED CT 895434794) Active 480633283 [facility] History of malignant neoplasm of lung Active 851701218 CHAPO BARRETO [facility] Hyperlipidemia (SNOMED CT 59634422) Active 58245679 PAMELA RAMSEY [facility] Lung mass Active 911299227 September 08, 2014 E ntered By: PADMA LONG Comment: 4.5 cm mass, post. segment right upper lobe.September 08, 2014 Entered By: PADMA LONG Comment: mild adenopathy in mediastinum and bilat. [email or web address] Entered By: PADMA LONG Comment: most likely related to lung cancerMa2014 Entered By: PADMA LONG Comment: per ct angio of chest with contrast 09/01/14,[place] 2014 Entered By: PADMA LONG Comment: per path report- mod. differentiated bronchogenic adenoca. 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 Obesity Active 136362021 SONG BULLOCK [facility] Obstructive sleep apnea syndrome (SNOMED CT 76410702) Active 675299 015 [place] Juan M [facility] Pancreatic cyst Active 04510673 JAYLENE GUEVARA [facility] Papilloma of right eyelid Active [id number] NEDA SHAW [facility] Polyp of colon Active 61701869 Jan 23 Entered By: PADMA LONG Comment: c-scope 01/17/16, multiple benign colonic polypsJun 28, 2017 Entered By: PADMA LONG Comment: c-scope,06/25/17,[facility], three benign polyps- sigmoid colon, transverse colon,cecum. see path report cprs BRIANSHARRONNicol THAYER [facility] Pulmonary emphysema Active 12937965 0 BRIANA LESLYE [facility] Sensorineural hearing loss, bilateral Active 753841349 CHASTITY JEAN [facility] Snoring Active 57353554 S[facility] BULL[facility] Type 2 diabetes mellitus without complication Active 088854778 NEDA SHAW [facility] Environmental Allergies (ICD-9-CM 477.9) Inactive 477.9 Dec 18, 2017 PADMA LONG [facility] External hemorrhoids without mention of complication (ICD-9- CM 455.3) Inactive 455.3 Dec 18, 2017 PADMA LONG [facility] Impotence of organic origin (ICD-9-CM 607.84) Inactive 607.84 Dec 18, 2017 PADMA LONG [facility] Screening for Lipoid disorders (ICD-9-CM V77.91) Inactive V77.91 Jan 18, 2007 PADMA LONG [facility] Stye * (ICD-9-CM 373.11) Inactive 373.11 Dec 18, 8 Jan 18, 2007 Entered By: PADMA LONG Comment: bilat lower lids, chronic/recurrent PADMA LONG [facility] Tobacco Use Disorder, Continuous Inactive [...] Encounter. The data comes from all [facility] facilities. Date/Time Pathology Report Provider Source Apr [...] 11:11) Microscopic examination is performed. DIAGNOSIS: Specimen: [id number] Spec Type: SURGICAL Abdulkadir: 04/03/19 Rec: 04/03/19-1241 PATHOLOGIC DIAGNOSIS Skin lesion, right upper cheek, biopsy: 1. Seborrheic keratosis, not involving resection margins. 2. Solar elastosis. Skin lesion, right lower mid margin, biopsy: 1. Seborrheic keratosis, with tumor at tissue edge/margin, but with benign features. LL COPIES TO: KATHERINE MATT [facility] PATHOLOGIST CODES: 24803/2 at 1235 The gross and microscopic examinations and interpretation were performed at [facility] Department of Pathology, [address] [place] [address]. Slides and paraffin blocks are on file at [facility]. =--=--=--=--=--=--=--=--=--=--=--=--=--=--=--=--=--=--=--=--=--=--=--=--=--=-- Performing Laboratory: Surgical Pathology Report Performed By: [facility] [CLIA# [id number]] [facility] [place] [address] [facility] 15 Encounter Notes: All associated encounter notes No Data Provided for This Section
--- OUTSIDE RECORDS SUMMARY | 2019-12-02 13:09 | XMS REPORT | Encounter Summary ---
Author Author [facility] Organization Department of [facility] Affai Address [address] [place] [address] Phone Unavailable Care Team Providers Care Pantry Goods Maker Name Role Phone ADRIEL HERNANDEZ PCP Unavailable Insurance Providers: All historical and current No Data Provided for This Section Selected Encounter This section includes the information on record at [place] for the Encounter. Date/Time Encounter Type Encounter Description Reason Provider Source Mar 31, 2019 03:14 PM Outpatient Encounter COMMUNITY CARE CONSULT ARTUR BLAS [facility] IHE Encounter Template Text not used by MI Assessments - Encounter Diagnoses No Data Provided for This Section Plan of Treatment: Future Appointments (+ 6 months) and Future Tests (+/- 45 day s) The Plan of Treatment section includes future care activities for the patient fr om all MI treatment facilities. This section includes future appointments and fu ture orders which are active, pending or scheduled. Future Appointments This section includes appointments that were scheduled t o occur 6 months from the date of the Encounter, up to a maximum of 20 appointme nts. The data comes from all [place] treatment facilities. Appointment Date/Time Appointment Type Appointment Facili ty Name Apr 03, 2019 10:00 AM AMBULATORY - SURGERY ARTUR BLAS [facility] Apr 14, 2019 10:00 AM AMBULATORY [...] [facility] Sep 23, 2019 11:15 AM AMBULATORY - [...] the Encounter. The data comes from all [place] treatment facilities. Test Date/Time Test Type Test Details Facility Name Apr 01, 2019 10:33 AM Consult Order [id number] Cons Digital Media Analyst's Choice [facility] Surgical Procedures: All associated to the encounter No Data Provided for This Section Lab Results: +/- 30 days of the encounter This section includes the Chemistry and Hematology Lab R esults on record with MI for the patient. Radiology Reports and Pathology Report s are provided separately, in subsequent sections. Lab Results This section contains the Chemistry/Hematology Results usha t were resulted 30 days before or 30 days after the date of the Encounter. Date/Time Source Result Type Result - Unit Interpretation Reference Range Comment Mar 21, 2019 08:55 AM [facility] HEMOGLOBIN A1C Specimen Type: BLOOD No [...] and tobacco- related health factors from the MI facility where the Encounter took place. Current Smoking Status This section includes the most current smoking, or tobacco -related health factor, from the MI facility where the Encounter took place. Date/Time Current Smoking Status Comment Facility Jun 26, 2018 02:13 PM VA-TOBACCO QUIT 15 YRS OR MORE PORSHA BLAS [facility] Tobacco Use History This section includes a history of the smoking, or tobacco -related health factors, that were collected on or before the date of the Encoun ter. The data comes from the MI facility where the Encounter took place. Date/Time Smoking Status/Tobacco Use Comment [facility] Jun 26, 2018 02:13 PM VA-TOBACCO QUIT 15 YRS OR MORE PORSHA BLAS [facility] Jun 27, 2017 01:39 PM NON-TOBACCO USER ARTUR LaresuJan M CARRASQUILLO C Jun 27, 2017 01:16 [...] patient. The data comes from a ll [place] treatment facilities. It does not list Allergies/ADRs that were removed or entered in error. Some allergies/ADRs may be reported in t Immunization section. Allergen Event Date Event Type Reaction(s) Severity Source [place] September 08, 2014 Propensity to adverse reactions to drug (diso rder) [facility] [place] September 08, 2014 Propensity to adverse reactions to drug (diso rder) [facility] Medications: VA dispensed (-15 months) and Non-VA Documented (Obtained Outside V A) Section Date Range: 1) prescriptions processed by a VA pharmacy in the last 15 m [facility], and 2) all medications recorded in the VA medical record as "non-VA medic ations". Pharmacy terms refer to [place] pharmacy's work on prescriptions. VA patient s are advised to take their medications as instructed by their health care team. The data comes from all [place] treatment facilities. Glossary of Pharmacy Terms:Active = A prescription that can be filled at the local VA pharmacy.Active: On Hold = An active prescription that will not be filled until pharmacy resolves the issue.Active: Susp = An active prescription that is not scheduled to be filled yet.Clinic Order = A medication received during a visit to a MI clinic or emergency department (currently not available).Discontinued [...] may be a prescription from either the MI or other providers that was filled outside the MI. Or, it may be an over the [...] TEST BLOOD GLUCOSE 50 Dec 19, 2019 [id number] September 04, 2019 PAMELA RAMSEY GUILLERMO ACCU-CHEK CHARLES PLUS (GLUCOSE) TEST STRIP Discontinued USE 1 STRIP FOR TESTING TWO TIMES PER WEEK - DIRECTED TO TEST BLOOD GLUCOSE 50 Jul 25, 2019 [id number] Nov 12, 2018 PAMELA RAMSEY [facility] ALBUTEROL SO4 90MCG/ACTUAT (CFC-F) INHL,ORAL,6.7GM Active INHALE 2 PUFFS BY ORAL INHALATION EVERY 4 HOURS NEEDED FOR BREATHING. SHAKE WELL. RINSE MOUTHPIECE FREQUENTLY TO PREVENT CLOGGING. USE NEEDED FOR SHORTNESS OF AIR/WHEEZING FOR BREATHING. SHAKE WELL. RINSE MOUTHPIECE FREQUENTLY TO PREVENT CLOGGING. USE NEEDED FOR SHORTNESS OF AIR/WHEEZING 1 Dec 19, 2019 [id number] September 04, 2019 PAMELA RAMSEY CB ALCOHOL PREP PAD Active USE 1 PAD ON SKIN BIW TO CLEAN AND DISINFECT THE SKIN 200 Sep 29, 2020 [id number] Sep 30, 2019 CHUCHO,MAURICIO [facility] ALCOHOL PREP PAD Discontinued USE 1 PAD ON SKIN BI W TO CLEAN AND DISINFECT THE SKIN 200 Dec 19, 2019 [id number] Jun 06, 2019 PAMELA RAMSEY CB ALCOHOL PREP PAD Discontinued USE 1 PAD ON SKIN BI W TO CLEAN AND DISINFECT THE SKIN 200 Jul 25, 2019 [id number] Nov 12, 2018 PAMELA RAMSEY [facility] ASCORBIC ACID 250MG TAB Non-VA TAKE ONE TABLET BY MOUTH ONCE A DAY Non-VA Documented by: SHANIQUA SCHMIDT nted at: [facility] ASPIRIN 25MG/DIPYRIDAMOLE 200MG CAP,SA Active T CHAPIN 1 CAPSULE BY MOUTH TWO TIMES A DAY - SWALLOW WHOLE. DO NOT CRUSH OR CHEW. FOR RECURRENT TIA/STROKE 180 Dec 19, 2019 [id number] Dec 20, 2018 PAMELA RAMSEY [facility] ASPIRIN 25MG/DIPYRIDAMOLE 200MG CAP,SA Discontinued T CHAPIN 1 CAPSULE BY MOUTH TWO TIMES A DAY - SWALLOW WHOLE. DO NOT CRUSH OR CHEW. FOR RECURRENT TIA/STROKE 180 Feb 06, 2019 [id number] Sep 28, 2018 ZACHARY GRECO [facility] ASPIRIN 81MG TAB,EC Non- VA TAKE ONE TABLET BY MOUTH ONCE A DAY Non-VA Documented by: PADMA LONG nted at: [facility] ATORVASTATIN CA 80MG TAB Active TAKE ONE TABLET BY MOUTH AT BEDTIME FOR CHOLESTEROL - REPORT ANY UNEXPLAINED MUSCLE PAIN/WEAKNESS TO YOUR PROVIDER 90 Dec 19, 2019 [id number] September 04, 2019 PAMELA RAMSEY [facility] ATORVASTATIN CA 80MG TAB Discontinued TAKE ONE TABLET BY MOUTH AT BEDTIME FOR CHOLESTEROL - REPORT ANY UNEXPLAINED MUSCLE PAIN/WEAKNESS TO YOUR PROVIDER 90 Dec 20, 2018 [id number] Nov 12, 2018 PAMELA RAMSEY [facility] BUDESONIDE 160MCG/FORMOTEROL FUM 4.5MCG/SPRAY INHL,ORAL,10.2 GM Active INHALE 2 PUFFS BY MOUTH TWO TIMES A DAY FOR BREATHING. SHAKE WELL. RINSE MOUTH AND SPIT AFTER EACH USE. 3 Apr 24, 2020 [id number] August 22, 2019 LISSA OATES [facility] CALCIUM/VITAMIN D TAB No n-VA TAKE BY MOUTH ONCE A DAY Non-V A Documented by: PADMA LONG nted at: [facility] CARBOXYMETHYLCELLULOSE NA 0.5% SOLN,OPH Active INSTILL ONE DROP IN BOTH EYES FOUR TIMES A DAY FOR DRY EYES 15 Feb 01, 2020 [id number] September 03 0 [facility] DICLOFENAC NA 1% GEL,TOP Discontinued APPLY 2 GRAMS A FFECTED AREA TWO TIMES A DAY NEEDED FOR PAIN AND INFLAMMATION. DO NOT EXCEED 16GM DAILY TO ANY AFFECTED JOINT OF LOWER EXTREMITIES. DO NOT EXCEED 8GM DAILY TO ANY AFFECTED JOINT OF UPPER EXTREMITES. DO NOT EXCEED TOTAL DOSE OF 32GM DAILY FOR ALL JOINTS. 100 Oct 31, 2018 [id number] Oct 06, 2018 ANAYELI KIRKPATRICK [facility] DICLOFENAC NA 1% GEL,TOP APPLY 2 GRAMS A FFECTED AREA TWO TIMES A DAY NEEDED FOR PAIN AND INFLAMMATION. DO NOT EXCEED 16GM DAILY TO ANY AFFECTED JOINT OF LOWER EXTREMITIES. DO NOT EXCEED 8GM DAILY TO ANY AFFECTED JOINT OF UPPER EXTREMITES. DO NOT EXCEED TOTAL DOSE OF 32GM DAILY FOR ALL JOINTS. 100 Jan 17, 2019 [id number] Dec 20, 2018 PAMELA RAMSEY FLUTICASONE PROPIONATE 50MCG/SPRAY SOLN,NASAL,16GM Active INSTILL 1 SPRAY IN EACH NOSTRIL ONCE A DAY SHAKE GENTLY BEFORE USE! - MUST BE USED DIRECTED FOR 3 WEEKS TO PROVIDE BENEFIT. * NO EARLY REFILLS * 1UNIT = 30DAYS AT 4 PF/DAY OR 60DAYS AT 2PF/DAY 2 Dec 19, 2019 [id number] August 26, 2019 PAMELA RAMSEY KETOTIFEN 0.025% SOLN,OPH Active INSTILL 1 DROP IN BOTH EYES TWO TIMES A DAY FOR RELIEF OF ALLERGY SYMPTOMS IN EYE(S) Feb 01, 2020 [id number] September 04, 2019 [facility] LANCET,SOFTCLIX Active USE LANCET BIW FOR TESTING BL OOD GLUCOSE DIRECTED Sep 29, 2020 [id number] Sep 30, 2019 MAURICIO RANKIN LANCET,SOFTCLIX Discontinued USE LANCET BIW FO R TESTING BLOOD GLUCOSE DIRECTED Dec 19, 2019 [id number] Jun 06, 2019 [facility]EL[facility] RAMSEY [facility] LANCET,SOFTCLIX Discontinued USE LANCET BIW FO R TESTING BLOOD GLUCOSE DIRECTED 100 Jul 25, 2019 [id number] Nov 12, 2018 PAMELA RAMSEY LISINOPRIL 40MG TAB Non- VA TAKE ONE-HALF TABLET BY MOUTH EVERY MORNING Non-VA Documented by: PAMELA RAMSEY nted at: [facility] LORATADINE/PSEUDOEPHEDRINE TAB,SA Non-VA TAKE BY MOUTH No n-VA Documented by: JUAN LANG Docume nted at: ARTUR BLAS [facility] MAGNESIUM OXIDE 400MG TAB Non-VA TAKE ONE [...] ACID (REPLACES ACIPHEX) 180 Dec 19, 2019 [id number] August 26, 2019 PAMELA RAMSEY POLYETHYLENE GLYCOL [...] by: ANAYELI KIRKPATRICK nted at: ARTUR SIMSMila [facility] TERBINAFINE HCL 1% CREAM,TOP Active APPLY LIGHT LY TO AFFECTED AREA TWO TIMES A DAY FOR INFECTION 90 Sep 23, 2020 [id number] Sep 24, 2019 ADRIEL HERNANDEZ CBGUILLERMO UREA 20% CREAM,TOP Active APPLY LIGHTLY (20%) TO AFFECTED AREA TWO TIMES A DAY NEEDED TO PROMOTE HEALING,RUB IN UNTIL COMPLETELY ABSORBED*FOR TOPICAL USE ONLY* APPLY TO BOTH FEET DIRECTED. 90 Sep 25, 2020 [id number] Sep 26, 2019 ADRIEL HERNANDEZ Problems (Conditions): All historical and current Section Date Range: From patient's date of to the date document was create d. This section includes a list of Problems (Conditions) know n to VA for the patient. It includes both active and inacti ve problems (conditions). The data comes from all [place] treatment facilities. Problem Status Problem Code Date of Onset Date of Resolution Comm ent(s) Provider Source Alcohol intake above recommended sensible limits Active 392222555 PADMA LONG [facility] Allergic conjunctivitis Active 308656997 [place] [facility] Bilateral senile combined form cataracts of eyes Active 11066307840 9108 [facility] Luda [facility] Bilateral tinnitus Active 5101407166328 CHASTITY JEAN [facility] Coronary arteriosclerosis Active 04811995 September 08, 2014 Entered By: PADMA LONG Comment: hx of ptca to RCA several yrs. agoSeptember 08, 2014 Entered By: PADMA LONG Comment: heart cath 09/01/14, neg. / previous stent to RCA,, [place] H[place]ER, JENNEY R [facility] Diabetes mellitus Active 08493260 PAMELA RAMSEY [facility] Disorder of pancreas Active 6404092 September 08, 2014 Entered By: PADMA LONG Comment: 2.5cm low density lseion in bodyMay 2014 Entered By: PADMA LONG Comment: question of communication with pancreatic ductMa2014 Entered By: PADMA LONG Comment: favored to be cystic pancreatic cancerSeptember 08, 2014 Entered By: PADMA LONG Comment: per abdominal CT 09/01/14, [place] APDMA LONG [facility] Dry eyes Active 356679293 NEDA SHAW [facility] Gastro-esophageal reflux disease without esophagitis ( SNOMED CT 710400131) Active 374781268 ALF GUEVARA [facility] History of malignant neoplasm of lung Active 688197342 CHAPO BARRETO [facility] Hyperlipidemia (SNOMED CT 50742578) Active 75228761 PAMELA RAMSEY [facility] Lung mass Active 176333741 September 08, 2014 E ntered By: PADMA LONG Comment: 4.5 cm mass, post. segment right upper lobe.September 08, 2014 Entered By: PADMA LONG Comment: mild adenopathy in mediastinum and bilat. hilaMay 2014 Entered By: PADMA LONG Comment: most likely related to lung cancerMa2014 Entered By: PADMA LONG Comment: per ct angio of chest with contrast 09/01/14,[place] 2014 Entered By: PADMA LONG Comment: per path report- mod. differentiated bronchogenic adenoca. 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 Active 73386810 KATHERINE MATT Juan M [facility] Obesity Active 695646748 SONG BULLOCK Juan M [facility] Obstructive sleep apnea syndrome (SNOMED CT 46428052) Active 666779 015 PH[place] D[place]ASS [facility] Pancreatic cyst Active 57474606 JAYLENE GUEVARA [facility] Papilloma of right eyelid Active 780458114350141 NEDA SHAW Juan M [facility] Polyp of colon Active 59865773 Jan 23 16 Entered By: PADMA LONG Comment: c-scope 01/17/16, multiple benign colonic polypsJun 28, 2017 Entered By: PADMA LONG Comment: c-scope,06/25/17,[facility], three benign polyps- sigmoid colon, transverse colon,cecum. see path report cprs SHARRON TORRES MO THAYRE [facility] Pulmonary emphysema Active 45056319 0 BRIANA LESLYE [facility] Sensorineural hearing loss, bilateral Active 154500482 CHASTITY JEAN [facility] Snoring Active 32264669 Jayshree BULLOCKUBAIR [facility] Type 2 diabetes mellitus without complication Active 665339626 COLINNEDA Luda SIDDIQUI [facility] Environmental Allergies (ICD-9-CM 477.9) Inactive 477.9 Dec 18, 2017 [facility] External hemorrhoids without mention of complication (ICD-9- CM 455.3) Inactive 455.3 Dec 18, 2017 [facility] Impotence of organic origin (ICD-9-CM 607.84) Inactive 607.84 Dec 18, 2017 [facility] Screening for Lipoid disorders (ICD-9-CM V77.91) Inactive V77.91 Jan 18, 2007 [facility] LONG [facility] Stye * (ICD-9-CM 373.11) Inactive 373.11 Dec 18 8 Jan 18, 2007 Entered By: PADMA LONG Comment: bilat lower lids, chronic/recurrent PADMA LONG [facility] Tobacco Use Disorder, Continuous Inactive 305.1 Dec 18, 2017 Jan 18, 2007 Entered By: PADMA LONG Comment: one ppd PADMA LONG [facility] Radiology Reports: +/- 30 days of the [...] 11:11) Microscopic examination is performed. DIAGNOSIS: Specimen: [id number] Spec Type: SURGICAL Abdulkadir: 04/03/19 Rec: 04/03/19-1241 PATHOLOGIC DIAGNOSIS Skin lesion, right upper cheek, biopsy: 1. Seborrheic keratosis, not involving resection margins. 2. Solar elastosis. Skin lesion, right lower mid margin, biopsy: 1. Seborrheic keratosis, with tumor at tissue edge/margin, but with benign features. LL COPIES TO: MATTKATHERINE [facility] PATHOLOGIST CODES: 75635/2 at 1235 The gross and microscopic examinations and interpretation were performed at [facility] Department of Pathology, [address] [place] [address]. Slides and paraffin blocks are on file at [facility]. =--=--=--=--=--=--=--=--=--=--=--=--=--=--=--=--=--=--=--=--=--=--=--=--=--=-- Performing Laboratory: Surgical Pathology Report Performed By: [facility] [CLIA# [id number]] [address] [place] [address] [facility] LANGFORD [facility] 15 Encounter Notes: All associated encounter notes This section contains the clinical notes associated to the Encounter. Date/Time Encounter Note(s) Provider Source Mar 31, 2019 03:14 PM NONVA NOTE: LOCAL TITLE: COMMUNITY CARE-COORDINATION NOTE MO STANDARD TITLE: NONVA NOTE DATE OF NOTE: MAR 31, 2019@15:14 ENTRY DATE: MAR 31, 2019@15:15:06 AUTHOR: VALERIA GROVE EXP COSIGNER: URGENCY: STATUS: COMPLETED COMMUNITY CARE-COORDINATION NOTE MO Has ADDENDA [place] is needing a consult placed for Pulmonary in his communuty. [place] is currently seeing Dr. Linwood Friedman at [facility]. can be reached at [phone]. /gisell/ VALERIA GROVE msa Signed: 03/31/2019 15:17 [...] in my personal RightFax folder on 04/01/2019. [place] has appointment on 04/01/2019. This will be sent via secure email to members of care team at [facility] [address] Please [address] Community care Pulmonary consult if in agreement. Thank you. /gisell/ [place] PALOMINO RN Signed: 04/01/2019 09:43 Receipt Acknowledged By: * AWAITING SIGNATURE * SHANIQUA SCHMIDT JANET F ROBERT J. DOLE [facility]
--- OUTSIDE RECORDS SUMMARY | 2019-12-02 13:09 | XMS REPORT | Encounter Summary ---
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 The data comes from all [facility]. Appointment Date/Time Appointment Type Appointment Facili ty Name Apr 14, 2019 10:00 AM AMBULATORY - SURGERY [facility] Apr 28, 2019 11:00 AM AMBULATORY - NONE ARTUR BLAS [facility] Jun 25, 2019 11:30 AM AMBULATORY - NONE ARTUR BLAS [facility] Jun 25, 2019 01:15 PM AMBULATORY - MEDICINE ARTUR LudaJuan M BLAS [facility] Jul 23, 2019 11:00 AM AMBULATORY - NONE ARTUR BLAS [facility] Jul 25, 2019 08:00 AM AMBULATORY - NONE ARTUR BLAS [facility] Aug 07, 2019 10:30 AM AMBULATORY - MEDICINE ARTUR BLAS [facility] Sep 23, 2019 11:15 AM AMBULATORY - NONE [facility] Sep 23, 2019 11:30 AM AMBULATORY - MEDICINE [facility] Active, Pending, and Scheduled Orders [...] the Encounter. The data comes from all [facility]. Test Date/Time Test Type Test Details Facility Name Apr 01, 2019 10:33 AM Consult Order [facility] [id number] Cons Disulfurizer Tender's Choice [facility] Surgical Procedures: All associated to [...] Range Comment Mar 21, 2019 08:55 AM [facility] HEMOGLOBIN A1C Specimen Type: [...] 2019 10:21 AM 4 ARTUR Ireland LEVIMila [facility] Apr 03, 2019 10:01 AM 99.5 F 92 /min 106/67 mm[Hg] 18 /min 94 % 4 [facility] Immunizations: All administered on the encounter [...] Comment Facility Jun 26, 2018 02:13 PM PA-TOBACCO QUIT 15 YRS OR MORE [facility] Tobacco Use History This section includes a history of the smoking, or tobacco -related health factors, that were collected on or before the date of the Encoun ter. The data comes from the PA facility where the Encounter took place. Date/Time Smoking Status/Tobacco Use Comment [facility] Jun 26, 2018 02:13 PM PA-TOBACCO QUIT 15 YRS OR MORE PORSHA BLAS [facility] Jun 27, 2017 01:39 PM NON-TOBACCO [facility]ER [facility] Jun 27, 2017 01:16 PM NON-TOBACCO USER ARTUR BLAS [facility] Jan 06, 2015 02:07 PM NON-TOBACCO USER [facility] Nov 23, 2014 10:38 AM NON-TOBACCO USER ARTUR CARRASQUILLO [facility] Oct 26, 2014 10:36 AM NON-TOBACCO USER ARTUR BLAS [facility] Oct 14, 2014 11:09 AM NON-TOBACCO USER ARTUR BLAS [facility] Advance Directives: All historical and current No Data Provided for This Section Allergies and Adverse Reactions (ADRs): All historical and current Section Date Range: From patient's date of to the date document was create d. This section includes Allergies and Adverse Reactions (ADR s) [facility] with [facility]. The data comes from a [facility] treatment facilities. It does not [...] drug (diso rder) [facility]ations: [facility] dispensed (-15 months) [...] TEST BLOOD GLUCOSE 50 Dec 19, 2019 [id number] September 04, 2019 PAMELA RAMSEY CBGUILLERMO ACCU-CHEK CHARLES PLUS (GLUCOSE) TEST STRIP Discontinued USE 1 STRIP FOR TESTING TWO TIMES PER WEEK - DIRECTED TO TEST BLOOD GLUCOSE 50 Jul 25, 2019 [id number] Nov 12, 2018 PAMELA RAMSEY ALBUTEROL SO4 90MCG/ACTUAT (CFC-F) INHL,ORAL,6.7GM Active INHALE 2 PUFFS BY ORAL INHALATION EVERY 4 HOURS NEEDED FOR BREATHING. SHAKE WELL. RINSE MOUTHPIECE FREQUENTLY TO PREVENT CLOGGING. USE NEEDED FOR SHORTNESS OF AIR/WHEEZING FOR BREATHING. SHAKE WELL. RINSE MOUTHPIECE FREQUENTLY TO PREVENT CLOGGING. USE NEEDED FOR SHORTNESS OF AIR/WHEEZING Dec 19, 2019 [id number] September 04, 2019 PAMELA RAMSEY [facility] ALCOHOL PREP PAD Active USE 1 PAD ON SKIN BIW TO CLEAN AND DISINFECT THE SKIN 200 Sep 29, 2020 [id number] Sep 30, 2019 MAURICIO RANKIN [facility] ALCOHOL PREP PAD Discontinued USE 1 PAD ON SKIN BI W TO CLEAN AND DISINFECT THE SKIN 200 Dec 19, 2019 [id number] Jun 06, 2019 PAMELA RAMSEY [facility] ALCOHOL PREP PAD Discontinued USE 1 PAD ON SKIN BI W TO CLEAN AND DISINFECT THE SKIN 200 Jul 25, 2019 [id number] Nov 12, 2018 PAMELA RAMSEY ASCORBIC ACID 250MG TAB Non-VA TAKE ONE TABLET BY MOUTH ONCE A DAY Non-VA Documented by: SHANIQUA SCHMIDT nted at: [facility] ASPIRIN 25MG/DIPYRIDAMOLE 200MG CAP,SA Active T CHAPIN 1 CAPSULE BY MOUTH TWO TIMES A DAY - SWALLOW WHOLE. DO NOT CRUSH OR CHEW. FOR RECURRENT TIA/STROKE 180 Dec 19, 2019 [id number] Dec 20, 2018 PAMELA RAMSEY [facility] ASPIRIN 25MG/DIPYRIDAMOLE 200MG CAP,SA Discontinued T CHAPIN 1 CAPSULE BY MOUTH TWO TIMES A DAY - SWALLOW WHOLE. DO NOT CRUSH OR CHEW. FOR RECURRENT TIA/STROKE 180 Feb 06, 2019 [id number] Sep 28, 2018 ZACHARY GRECO [facility] ASPIRIN 81MG TAB,EC Non- [facility] TAKE ONE TABLET BY MOUTH ONCE A DAY Non-VA Documented by: PADMA LONG nted at: [facility]OCK[facility] ATORVASTATIN CA 80MG TAB Active TAKE ONE TABLET BY MOUTH AT BEDTIME FOR CHOLESTEROL - REPORT ANY UNEXPLAINED MUSCLE PAIN/WEAKNESS TO YOUR PROVIDER 90 Dec 19, 2019 [id number] September 04, 2019 PAMELA RAMSEY ATORVASTATIN CA 80MG TAB Discontinued TAKE ONE TABLET BY MOUTH AT BEDTIME FOR CHOLESTEROL - REPORT ANY UNEXPLAINED MUSCLE PAIN/WEAKNESS TO YOUR PROVIDER 90 Dec 20, 2018 [id number] Nov 12, 2018 PAMELA RAMSEY BUDESONIDE 160MCG/FORMOTEROL FUM 4.5MCG/SPRAY INHL,ORAL,10.2 GM Active INHALE 2 PUFFS BY MOUTH TWO TIMES A DAY FOR BREATHING. SHAKE WELL. RINSE MOUTH AND SPIT AFTER EACH USE. 3 Apr 24, 2020 [id number] August 22, 2019 LISSA OATES [facility] CALCIUM/VITAMIN D TAB No n-VA TAKE BY MOUTH ONCE A DAY Non-V A Documented by: PADMA LONG nted at: [facility] NESS CARBOXYMETHYLCELLULOSE NA 0.5% SOLN,OPH Active INSTILL ONE DROP IN BOTH EYES FOUR TIMES A DAY FOR DRY EYES 15 Feb 01, 2020 [id number] September 03 0 NEDA SHAW [facility] [...] FOR ALL JOINTS. 100 Oct 31, 2018 [id number] Oct 06, 2018 ANAYELI KIRKPATRICK [facility] [...] FOR ALL JOINTS. 100 Jan 17, 2019 [id number] Dec 20, 2018 PAMELA RAMSEY FLUTICASONE PROPIONATE 50MCG/SPRAY SOLN,NASAL,16GM Active INSTILL 1 SPRAY IN EACH NOSTRIL ONCE A DAY SHAKE GENTLY BEFORE USE! - MUST BE USED DIRECTED FOR 3 WEEKS TO PROVIDE BENEFIT. * NO EARLY REFILLS * 1UNIT = 30DAYS AT 4 PF/DAY OR 60DAYS AT 2PF/DAY 2 Dec 19, 2019 [id number] August 26, 2019 PAMELA RAMSEY KETOTIFEN 0.025% SOLN,OPH Active INSTILL 1 DROP IN BOTH EYES TWO TIMES A DAY FOR RELIEF OF ALLERGY SYMPTOMS IN EYE(S) Feb 01, 2020 [id number] September 04, 2019 NEDA SHAW [facility] LANCET,SOFTCLIX Active USE LANCET BIW FOR TESTING BL OOD GLUCOSE DIRECTED 100 Sep 29, 2020 [id number] Sep 30, 2019 CHUCHOMAURICIOLloyd [facility] LANCET,SOFTCLIX Discontinued USE LANCET BIW FO R TESTING BLOOD GLUCOSE DIRECTED 100 Dec 19, 2019 [id number] Jun 06, 2019 PAMELA RAMSEY LANCET,SOFTCLIX Discontinued USE LANCET BIW FO R TESTING BLOOD GLUCOSE DIRECTED Jul 25, 2019 [id number] Nov 12, 2018 PAMELA RAMSEY LISINOPRIL 40MG [...] ACID (REPLACES ACIPHEX) 180 Dec 19, 2019 [id number] August 26, 2019 PAMELA RAMSEY POLYETHYLENE GLYCOL [...] Documented by: SAM HARDWICK Docume nted at: [facility] PREGABALIN 150MG CAP,ORAL Non-VA TAKE 1 CAPSULE BY MOUTH TWO TIMES A DAY Non-VA Docume nted by: PAMELA RAMSEY Docume nted at: [facility] SEMAGLUTIDE INJ,SOLN Non -VA INJECT SUBCUTANEOUSLY EVERY WEEK Non-VA Documented by: ANAYELI KIRKPATRICK Docume nted at: [facility] TERBINAFINE HCL 1% CREAM,TOP Active APPLY LIGHT LY TO AFFECTED AREA TWO TIMES A DAY FOR INFECTION Sep 23, 2020 [id number] Sep 24, 2019 ADRIEL HERNANDEZ UREA 20% CREAM,TOP Active APPLY LIGHTLY (20%) TO AFFECTED AREA TWO TIMES A DAY NEEDED TO PROMOTE HEALING,RUB IN UNTIL COMPLETELY ABSORBED*FOR TOPICAL USE ONLY* APPLY TO BOTH FEET DIRECTED. Sep 25, 2020 [id number] Sep 26, 2019 ADRIEL HERNANDEZ Problems (Conditions): [...] Alcohol intake above recommended sensible limits Active 590486309 PADMA LONG [facility] Allergic conjunctivitis Active 632174950 [place] [facility] Bilateral senile combined form cataracts of eyes Active 76979359646 9108 [place] [facility] Bilateral tinnitus Active 9137659909084 CHASTITY JEAN [facility] Coronary arteriosclerosis Active 99418498 September 08, 2014 Entered By: PADMA LONG Comment: hx of ptca to RCA several yrs. agoSeptember 08, 2014 Entered By: PADMA LONG Comment: heart cath 09/01/14, neg. / previous stent to RCA,, [place] KALA JONES [facility] Diabetes mellitus Active 49910353 PAMELA RAMSEY [facility] Disorder of pancreas Active 9136393 September 08, 2014 Entered By: PADMA LONG Comment: 2.5cm low density lseion in bodyMay 2014 Entered By: PADMA LONG Comment: question of communication with pancreatic ductMa2014 Entered By: PADMA LONG Comment: favored to be cystic pancreatic cancerSeptember 08, 2014 Entered By: PADMA LONG Comment: per abdominal CT 09/01/14, [place] PADMA LONG [facility] Dry eyes Active 580887158 NEDA SHAW [facility] Gastro-esophageal reflux disease without esophagitis ( SNOMED CT 291043618) Active 666670134 ALF GUEVARA [facility] History of malignant neoplasm of lung Active 953123595 CHAPO BARRETO [facility] Hyperlipidemia (SNOMED CT 19002622) Active 67528252 PAMELA RAMSEY [facility] Lung mass Active 507094512 September 08, 2014 E ntered By: PADMA LONG Comment: 4.5 cm mass, post. segment right upper lobe.September 08, 2014 Entered By: PADMA LONG Comment: mild adenopathy in mediastinum and bilat. hilaMa2014 Entered By: PADMA LONG Comment: most likely related to lung cancerSeptember 08, 2014 Entered By: PADMA LONG Comment: per ct angio of chest with contrast 09/01/14,via abida meneseswvSep 23, 2014 Entered By: PAMDA LONG Comment: per path report- mod. differentiated bronchogenic adenoca. PADMA LONG 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 Obesity Active 285288006 [facility] Obstructive sleep apnea syndrome (SNOMED CT 05359852) Active 924043 015 [place] ARTUR [facility] Pancreatic cyst Active 46820281 PAOLAJAYLENE Cortes [facility] Papilloma of right eyelid Active [id number] NEDA SHAW [facility] Polyp of colon Active 78960182 Jan 23 Entered By: PADMA LONG Comment: c-scope 01/17/16, multiple benign colonic polypsJun 28, 2017 Entered By: PADMA LONG Comment: c-scope,06/25/17,[facility], three benign polyps- sigmoid colon, transverse colon,cecum. see path report cprs SHARRON TORRES [facility] Pulmonary emphysema Active 15042586 0 BRIANA GAVIN [facility] Sensorineural hearing loss, bilateral Active 656664783 CHASTITY JEAN [facility] Snoring Active 48607457 SONG BULLOCK [facility] Type 2 diabetes mellitus without complication Active 104239492 NEDA SHAW [facility] Environmental Allergies (ICD-9-CM 477.9) Inactive 477.9 Dec 18, 2017 PADMA LONG [facility] External hemorrhoids without mention of complication (ICD-9- CM 455.3) Inactive 455.3 Dec 18, 2017 PADMA LONG [facility] Impotence of organic origin (ICD-9-CM 607.84) Inactive 607.84 Dec 18, 2017 PADMA LONG [facility] Screening for Lipoid disorders (ICD-9-CM V77.91) Inactive V77.91 Jan 18, 2007 [facility] LONG [facility] Stye * (ICD-9-CM 373.11) Inactive 373.11 Dec 18, 201 8 Jan 18, 2007 Entered By: PADMA LONG Comment: bilat lower lids, chronic/recurrent PADMA LONG ROOPA [facility] Tobacco Use Disorder, Continuous [...] 11:11) Microscopic examination is performed. DIAGNOSIS: Specimen: [id number] Spec Type: SURGICAL Abdulkadir: 04/03/19 Rec: 04/03/19-1241 PATHOLOGIC DIAGNOSIS Skin lesion, right upper cheek, biopsy: 1. Seborrheic keratosis, not involving resection margins. 2. Solar elastosis. Skin lesion, right lower mid margin, biopsy: 1. Seborrheic keratosis, with tumor at tissue edge/margin, but with benign features. LL COPIES TO: SAM HARDWICK [facility] PATHOLOGIST CODES: 61942/2 at 1235 The gross and microscopic examinations and interpretation were performed at [facility] Department of Pathology, [address] [place] [id number]. Slides and paraffin blocks are on file at [facility]. =--=--=--=--=--=--=--=--=--=--=--=--=--=--=--=--=--=--=--=--=--=--=--=--=--=-- Performing Laboratory: Surgical Pathology Report Performed By: [facility] [CLIA# [id number]] [address] [place] [id number] [address] [facility] 15 Encounter Notes: All [...] Dr Ronen Zarate RN Maria Victoria Jensen DIRECTOR [facility] Patient states full name and full social [...] ZARATE RN Signed: 04/03/2019 10:45 NÉSTOR ZARATE [facility] Apr 03, 2019 10:21 AM [...] ZARATE RN Signed: 04/03/2019 10:22 NÉSTOR ZARATE [facility] Apr 03, 2019 09:53 AM PROCEDURE NOTE: LOCAL TITLE: MO-AMBULATORY PROCEDURE ROOM NOTE STANDARD TITLE: PROCEDURE NOTE DATE OF NOTE: APR 03, 2019@09:53 ENTRY DATE: APR 03, 2019@09:53:54 AUTHOR: SAM HARDWICK COSIGNER: URGENCY: STATUS: COMPLETED Note Title: MO-AMBULATORY PROCEDURE ROOM NOTE Attending Physician: Sam Hardwick [...] REMOVAL APRIL 14. /gisell/ SAM HARDWICK Staff Patternator Signed: 04/03/2019 10:37 SAM HARDWICK [facility]
--- OUTSIDE RECORDS SUMMARY | 2019-12-02 13:09 | XMS REPORT | Encounter Summary ---
Author Author Department of [facility] rsHERBERTH Organization [facility] of [facility] Address [address] [place] [address] Phone Unavailable Care Team Providers Care Software Engineer Mobile Name Role Phone ADRIEL HERNANDEZ PCP Unavailable [...] AMBULATORY - SURGERY ARTUR BLAS [facility] Apr 14, 2019 10:00 AM AMBULATORY - SURGERY [facility] Apr 28, 2019 11:00 AM AMBULATORY - NONE ARTUR BLAS [facility] Jun 25, 2019 11:30 AM AMBULATORY - NONE ARTUR BLAS [facility] Jun 25, 2019 01:15 PM AMBULATORY - MEDICINE ARTUR BLAS [facility] Jul 23, 2019 11:00 AM AMBULATORY - NONE ARTUR BLAS [facility] Jul 25, 2019 08:00 AM AMBULATORY - NONE ARTUR BLAS [facility] Aug 07, 2019 10:30 AM AMBULATORY - MEDICINE ARTUR BLAS [facility] Sep 23, 2019 11:15 AM AMBULATORY - [...] Encounter. The data comes from all [facility] facilities. Test Date/Time Test Type Test Details Facility Name Apr 01, 2019 10:33 AM Consult Order [facility]-[id number] Cons Detector Car Operator's Choice [facility] Surgical Procedures: All associated to the encounter No Data Provided for This Section Lab Results: +/- 30 days of the encounter This section includes the Chemistry and Hematology Lab R esults on record with [place] for the patient. Radiology Reports and Pathology [...] Dec 18, 2016 08:55 AM NON-TOBACCO USER [facility] Dec 01, 2005 08:32 AM CURRENT [...] The data comes from a [facility] treatment facilities. It does not list Allergies/ADRs that were removed or entered in error. Some allergies/ADRs may be reported in t he Immunization section. Allergen Event Date Event Type Reaction(s) Severity Source [place] September 08, 2014 Propensity to adverse reactions to drug (diso rder) [facility] [place] September 08, 2014 Propensity to adverse reactions to drug (diso rder) [facility] Medications: VA dispensed (-15 months) and Non-VA Documented (Obtained Outside A) Section Date Range: 1) prescriptions processed by a [facility] pharmacy in the last 15 m [facility], and 2) all medications recorded in the [...] TEST BLOOD GLUCOSE 50 Dec 19, 2019 [id number] September 04, 2019 PAMELA RAMSEY ACCU-CHEK CHARLES PLUS (GLUCOSE) TEST STRIP Discontinued USE 1 STRIP FOR TESTING TWO TIMES PER WEEK - DIRECTED TO TEST BLOOD GLUCOSE 50 Jul 25, 2019 [id number] Nov 12, 2018 PAMELA RAMSEY ALBUTEROL SO4 90MCG/ACTUAT (CFC-F) INHL,ORAL,6.7GM Active INHALE 2 PUFFS BY ORAL INHALATION EVERY 4 HOURS NEEDED FOR BREATHING. SHAKE WELL. RINSE MOUTHPIECE FREQUENTLY TO PREVENT CLOGGING. USE NEEDED FOR SHORTNESS OF AIR/WHEEZING FOR BREATHING. SHAKE WELL. RINSE MOUTHPIECE FREQUENTLY TO PREVENT CLOGGING. USE NEEDED FOR SHORTNESS OF AIR/WHEEZING 1 Dec 19, 2019 [id number] September 04, 2019 PAMELA RAMSEY ALCOHOL PREP PAD Active USE 1 PAD ON SKIN BIW TO CLEAN AND DISINFECT THE SKIN 200 Sep 29, 2020 [id number] Sep 30, 2019 MAURICIO RANKIN [facility] ALCOHOL PREP PAD Discontinued USE 1 PAD ON SKIN BI W TO CLEAN AND DISINFECT THE SKIN 200 Dec 19, 2019 [id number] Jun 06, 2019 PAMELA RAMSEY ALCOHOL PREP PAD Discontinued USE 1 PAD ON SKIN BI W TO CLEAN AND DISINFECT THE SKIN 200 Jul 25, 2019 [id number] Nov 12, 2018 PAMELA RAMSEY [facility] ASCORBIC ACID 250MG TAB Non-VA TAKE ONE TABLET BY MOUTH ONCE A DAY Non-VA Documented by: SHANIQUA SCHMIDT nted at: [facility] ASPIRIN 25MG/DIPYRIDAMOLE 200MG CAP,SA Active T CHAPIN 1 CAPSULE BY MOUTH TWO TIMES A DAY - SWALLOW WHOLE. DO NOT CRUSH OR CHEW. FOR RECURRENT TIA/STROKE 180 Dec 19, 2019 [id number] Dec 20, 2018 PAMELA RAMSEY [facility] ASPIRIN 25MG/DIPYRIDAMOLE 200MG CAP,SA Discontinued T CHAPIN 1 CAPSULE BY MOUTH TWO TIMES A DAY - SWALLOW WHOLE. DO NOT CRUSH OR CHEW. FOR RECURRENT TIA/STROKE 180 Feb 06, 2019 [id number] Sep 28, 2018 ZACHARY GRECO [facility] ASPIRIN 81MG TAB,EC Non- VA TAKE ONE TABLET BY MOUTH ONCE A DAY Non-VA Documented by: PADMA LONG nted at: [facility] ATORVASTATIN CA 80MG TAB Active TAKE ONE TABLET BY MOUTH AT BEDTIME FOR CHOLESTEROL - REPORT ANY UNEXPLAINED MUSCLE PAIN/WEAKNESS TO YOUR PROVIDER 90 Dec 19, 2019 [id number] September 04, 2019 PAMELA RAMSEY ATORVASTATIN CA 80MG TAB Discontinued TAKE ONE TABLET BY MOUTH AT BEDTIME FOR CHOLESTEROL - REPORT ANY UNEXPLAINED MUSCLE PAIN/WEAKNESS TO YOUR PROVIDER 90 Dec 20, 2018 [id number] Nov 12, 2018 PAMELA RAMSEY BUDESONIDE 160MCG/FORMOTEROL FUM 4.5MCG/SPRAY INHL,ORAL,10.2 GM Active INHALE 2 PUFFS BY MOUTH TWO TIMES A DAY FOR BREATHING. SHAKE WELL. RINSE MOUTH AND SPIT AFTER EACH USE. 3 Apr 24, 2020 [id number] August 22, 2019 LISSA OATES [facility] CALCIUM/VITAMIN D TAB No n-VA TAKE BY MOUTH ONCE A DAY Non-V A Documented by: PADMA LONG nted at: [facility] CARBOXYMETHYLCELLULOSE NA 0.5% SOLN,OPH Active INSTILL ONE DROP IN BOTH EYES FOUR TIMES A DAY FOR DRY EYES 15 Feb 01, 2020 [id number] September 03 0 [facility] DICLOFENAC NA 1% GEL,TOP Discontinued APPLY 2 GRAMS A FFECTED AREA TWO TIMES A DAY NEEDED FOR PAIN AND INFLAMMATION. DO NOT EXCEED 16GM DAILY TO ANY AFFECTED JOINT OF LOWER EXTREMITIES. DO NOT EXCEED 8GM DAILY TO ANY AFFECTED JOINT OF UPPER EXTREMITES. DO NOT EXCEED TOTAL DOSE OF 32GM DAILY FOR ALL JOINTS. 100 Oct 31, 2018 [id number] Oct 06, 2018 ANAYELI KIRKPATRICK [facility] DICLOFENAC NA 1% GEL,TOP APPLY 2 GRAMS A FFECTED AREA TWO TIMES A DAY NEEDED FOR PAIN AND INFLAMMATION. DO NOT EXCEED 16GM DAILY TO ANY AFFECTED JOINT OF LOWER EXTREMITIES. DO NOT EXCEED 8GM DAILY TO ANY AFFECTED JOINT OF UPPER EXTREMITES. DO NOT EXCEED TOTAL DOSE OF 32GM DAILY FOR ALL JOINTS. 100 Jan 17, 2019 [id number] Dec 20, 2018 PAMELA RAMSEY FLUTICASONE PROPIONATE 50MCG/SPRAY SOLN,NASAL,16GM Active INSTILL 1 SPRAY IN EACH NOSTRIL ONCE A DAY SHAKE GENTLY BEFORE USE! - MUST BE USED DIRECTED FOR 3 WEEKS TO PROVIDE BENEFIT. * NO EARLY REFILLS * 1UNIT = 30DAYS AT 4 PF/DAY OR 60DAYS AT 2PF/DAY 2 Dec 19, 2019 [id number] August 26, 2019 PAMELA RAMSEY KETOTIFEN 0.025% SOLN,OPH Active INSTILL 1 DROP IN BOTH EYES TWO TIMES A DAY FOR RELIEF OF ALLERGY SYMPTOMS IN EYE(S) Feb 01, 2020 [id number] September 04, 2019 [facility] LANCET,SOFTCLIX Active USE LANCET BIW FOR TESTING BL OOD GLUCOSE DIRECTED 100 Sep 29, 2020 [id number] Sep 30, 2019 MAURICIO RANKIN [facility] LANCET,SOFTCLIX Discontinued USE LANCET BIW FO R TESTING BLOOD GLUCOSE DIRECTED 100 Dec 19, 2019 [id number] Jun 06, 2019 PAMELA RAMSEY LANCET,SOFTCLIX Discontinued USE LANCET BIW FO R TESTING BLOOD GLUCOSE DIRECTED 100 Jul 25, 2019 [id number] Nov 12, 2018 PAMELA RAMSEY LISINOPRIL 40MG TAB Non- VA TAKE ONE-HALF TABLET BY MOUTH EVERY MORNING Non-VA Documented by: PAMELA RAMSEY nted at: [facility] LORATADINE/PSEUDOEPHEDRINE TAB,SA Non-VA TAKE BY MOUTH No n-VA Documented by: JUAN LANG nted at: ARTUR BLAS [facility] MAGNESIUM OXIDE 400MG TAB Non-VA TAKE [...] by: SHANIQUA SCHMIDT nted at: [facility] OMEPRAZOLE 20MG CAP,EC Active TAKE 2 CAPSULES B Y MOUTH BEFORE BREAKFAST 30 MINUTES BEFORE EATING TO LOWER STOMACH ACID (REPLACES ACIPHEX) 180 Dec 19, 2019 [id number] August 26, 2019 PAMELA RAMSEY POLYETHYLENE GLYCOL [...] nted at: [facility] PREGABALIN 150MG CAP,ORAL Non-VA TAKE 1 CAPSULE BY MOUTH TWO TIMES A DAY Non-VA Docume nted by: PAMELA RAMSEY Docume nted at: [facility] SEMAGLUTIDE INJ,SOLN Non -VA INJECT SUBCUTANEOUSLY EVERY WEEK Non-VA Documented by: ANAYELI KIRKPATRICK Docume nted at: [facility] [place] [facility] TERBINAFINE HCL 1% CREAM,TOP Active APPLY LIGHT LY TO AFFECTED AREA TWO TIMES A DAY FOR INFECTION 90 Sep 23, 2020 [id number] Sep 24, 2019 ADRIEL HERNANDEZ UREA 20% CREAM,TOP Active APPLY LIGHTLY (20%) TO AFFECTED AREA TWO TIMES A DAY NEEDED TO PROMOTE HEALING,RUB IN UNTIL COMPLETELY ABSORBED*FOR TOPICAL USE ONLY* APPLY TO BOTH FEET DIRECTED. 90 Sep 25, 2020 [id number] Sep 26, 2019 ADRIEL HERNANDEZ Problems (Conditions): [...] Alcohol intake above recommended sensible limits Active 593909049 PADMA LONG [facility] Allergic conjunctivitis Active 926411548 NACOGDOCHESFACUNDONEDA Luda [facility] Bilateral senile combined form cataracts of eyes Active 50519454254 9108 [facility] Luda [facility] Bilateral tinnitus Active [id number] CHASTITY JEAN [facility] Coronary arteriosclerosis Active 32685232 September 08, 2014 Entered By: PADMA LONG Comment: hx of ptca to RCA several yrs. agoSeptember 08, 2014 Entered By: PADMA LONG Comment: heart cath 09/01/14, neg. / previous stent to RCA,, [place] HATCHER, JENNEY R [facility] Diabetes mellitus Active 85288305 PAMELA RAMSEY [facility] Disorder of pancreas Active 4096084 September 08, 2014 Entered By: PADMA LONG Comment: 2.5cm low density lseion in bodyMay 2014 Entered By: PADMA LONG Comment: question of communication with pancreatic ductMay 2014 Entered By: PADMA LONG Comment: favored to be cystic pancreatic cancerMay 2014 Entered By: PADMA LONG Comment: per abdominal CT 09/01/14, [place] PADMA LONG [facility] Dry eyes Active 325817639 NEDA SHAW [facility] Gastro-esophageal reflux disease without esophagitis ( SNOMED CT 655982083) Active 588383773 ALF GUEVARA [facility] History of malignant neoplasm of lung Active 866384006 CHAPO BARRETO Juan M [facility] Hyperlipidemia (SNOMED CT 80975520) Active 71262346 PAMELA RAMSEY Juan M [facility] Lung mass Active 396788802 September 08, 2014 E ntered By: PADMA LONG Comment: 4.5 cm mass, post. segment right upper lobe.September 08, 2014 Entered By: PADMA LONG Comment: mild adenopathy in mediastinum and bilat. [email or web address] Entered By: PADMA LONG Comment: most likely related to lung [id number] Entered By: PADMA LONG Comment: per ct angio of chest with contrast 09/01/14,[place] 2014 Entered By: PADMA LONG Comment: per path report- mod. differentiated bronchogenic adenoca. 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 Active 64359730 KATHERINE MATT [facility] Obesity Active 493311694 SONG BULLOCK [facility] Obstructive sleep apnea syndrome (SNOMED CT 60010232) Active 977474 015 PHILIPPE DOUGLASS [facility] Pancreatic cyst Active 68957989 JAYLENE GUEVARA [facility] Papilloma of right eyelid Active [id number] NEDA SHAW Juan M [facility] Polyp of colon Active 60552275 Jan 23 Entered By: PADMA LONG Comment: c-scope 01/17/16, multiple benign colonic polypsJun 28, 2017 Entered By: PADMA LONG Comment: c-scope,06/25/17,[facility], three benign polyps- sigmoid colon, transverse colon,cecum. see path report cprs SHARRON TORRES JEOVANY [facility] Pulmonary emphysema Active 55434159 0 BRIANA LESLYE [facility] Sensorineural hearing loss, bilateral Active 385025032 CHASTITY JEAN Nicol [facility] Snoring Active 17992007 SONG BULLOCK [facility] Type 2 diabetes mellitus without complication Active 755672558 NEDA SHAW [facility] Environmental Allergies [...] Comment: bilat lower lids, chronic/recurrent [facility] Tobacco Use Disorder, Continuous Inactive 305.1 Dec 18, 2017 Jan 18, 2007 Entered By: PADMA LONG Comment: one ppd PADMA LONG [facility] Radiology Reports: +/- 30 days of [...] the Encounter. The data comes from all [facility] treatment facilities. Date/Time Pathology Report Provider Source [...] 11:11) Microscopic examination is performed. DIAGNOSIS: Specimen: [id number] Spec Type: SURGICAL Abdulkadir: 04/03/19 Rec: 04/03/19-1241 PATHOLOGIC DIAGNOSIS Skin lesion, right upper cheek, biopsy: 1. Seborrheic keratosis, not involving resection margins. 2. Solar elastosis. Skin lesion, right lower mid margin, biopsy: 1. Seborrheic keratosis, with tumor at tissue edge/margin, but with benign features. LL [facility] PATH[facility] CODES: 42294/2 at 1235 The gross and microscopic examinations and interpretation were performed at [facility] Department of Pathology, [address] [place] [id number]. Slides and paraffin blocks are on file at [facility]. =--=--=--=--=--=--=--=--=--=--=--=--=--=--=--=--=--=--=--=--=--=--=--=--=--=-- Performing Laboratory: Surgical Pathology Report Performed By: [facility] [CLIA# [id number]] [facility] [place] [address] EDWARD [facility] 15 Encounter Notes: All associated encounter notes No Data Provided for This Section
--- OUTSIDE RECORDS SUMMARY | 2019-12-02 13:11 | XMS REPORT | Encounter Summary ---
Author Author [facility] HERBERTH kline Organization [facility] Address [address] [place] [address] Phone Unavailable Care Team Providers Care Turnstile Attendant Name Role Phone ADRIEL HERNANDEZ PCP Unavailable Insurance Providers: All historical and current No Data Provided for This Section Selected Encounter This section includes the information on [place] at [place] for the Encounter. Date/Time Encounter Type Encounter Description Reason Provider Source Mar 24, 2019 08:34 AM Outpatient Encounter PRIMARY CARE/MEDICINE [facility] IHE Encounter Template Text not [...] 10:00 AM AMBULATORY - NONE ARTUR BLAS [facility] Apr 03, 2019 10:00 AM AMBULATORY - SURGERY ARTUR BLAS [facility] Apr 14, 2019 10:00 AM AMBULATORY - SURGERY [facility] Apr 28, 2019 11:00 AM AMBULATORY - NONE ARTUR [facility] Jun 25, 2019 11:30 AM AMBULATORY - NONE [facility]UR [facility] Jun 25, 2019 01:15 PM AMBULATORY - MEDICINE ARTUR BLAS [facility] Jul 23, 2019 11:00 AM AMBULATORY - NONE ARTUR [facility] Jul 25, 2019 08:00 AM AMBULATORY - NONE ARTUR CARR[facility]ILLON[facility] Aug 07, 2019 10:30 AM AMBULATORY [...] 2019 10:33 AM Consult Order [facility][id number] Cons Airconditioning Plant Operator's Choice [facility] Surgical Procedures: All [...] took place. Date/Time Smoking Status/Tobacco Use Comment [facility] it Nov 23, 2017 09:51 AM CURRENT [...] drug (diso rder) [facility], [facility] 15 Medications: [facility] dispensed [...] may be a prescription from either the [place] or other providers that was filled outside [...] TEST BLOOD GLUCOSE 50 Dec 19, 2019 [id number] September 04, 2019 PAMELA RAMSEY GUILLERMO ACCU-CHEK CHARLES PLUS (GLUCOSE) TEST STRIP Discontinued USE 1 STRIP FOR TESTING TWO TIMES PER WEEK - DIRECTED TO TEST BLOOD GLUCOSE 50 Jul 25, 2019 [id number] Nov 12, 2018 PAMELA RAMSEY [facility] ALBUTEROL SO4 90MCG/ACTUAT (CFC-F) INHL,ORAL,6.7GM Active INHALE 2 PUFFS BY ORAL INHALATION EVERY 4 HOURS NEEDED FOR BREATHING. SHAKE WELL. RINSE MOUTHPIECE FREQUENTLY TO PREVENT CLOGGING. USE NEEDED FOR SHORTNESS OF AIR/WHEEZING FOR BREATHING. SHAKE WELL. RINSE MOUTHPIECE FREQUENTLY TO PREVENT CLOGGING. USE NEEDED FOR SHORTNESS OF AIR/WHEEZING 1 Dec 19, 2019 [id number] September 04, 2019 PAMELA RAMSEY CB ALCOHOL PREP PAD Active USE 1 PAD ON SKIN BIW TO CLEAN AND DISINFECT THE SKIN Sep 29, 2020 [id number] Sep 30, 2019 MAURICIO RANKIN [facility] ALCOHOL PREP PAD Discontinued USE 1 PAD ON SKIN BI W TO CLEAN AND DISINFECT THE SKIN 200 Dec 19, 2019 [id number] Jun 06, 2019 PAMELA RAMSEY CBGUILLERMO ALCOHOL PREP PAD Discontinued USE 1 PAD ON SKIN BI W TO CLEAN AND DISINFECT THE SKIN 200 Jul 25, 2019 [id number] Nov 12, 2018 PAMELA RAMSEY ASCORBIC ACID 250MG TAB Non-VA TAKE ONE TABLET BY MOUTH ONCE A DAY Non-VA Documented by: SHANIQUA SCHMIDT nted at: [facility] ASPIRIN 25MG/DIPYRIDAMOLE 200MG CAP,SA Active T CHAPIN 1 CAPSULE BY MOUTH TWO TIMES A DAY - SWALLOW WHOLE. DO NOT CRUSH OR CHEW. FOR RECURRENT TIA/STROKE 180 Dec 19, 2019 [id number] Dec 20, 2018 [facility] ASPIRIN 25MG/DIPYRIDAMOLE 200MG CAP,SA Discontinued T CHAPIN 1 CAPSULE BY MOUTH TWO TIMES A DAY - SWALLOW WHOLE. DO NOT CRUSH OR CHEW. FOR RECURRENT TIA/STROKE 180 Feb 06, 2019 [id number] Sep 28, 2018 ZACHARY GRECO [facility] ASPIRIN 81MG TAB,EC Non- [facility] TAKE ONE TABLET BY MOUTH ONCE A DAY Non-VA Documented by: PADMA LONG nted at: [facility] ATORVASTATIN CA 80MG TAB Active TAKE ONE TABLET BY MOUTH AT BEDTIME FOR CHOLESTEROL - REPORT ANY UNEXPLAINED MUSCLE PAIN/WEAKNESS TO YOUR PROVIDER 90 Dec 19, 2019 [id number] September 04, 2019 PAMELA RAMSEY ATORVASTATIN CA 80MG TAB Discontinued TAKE ONE TABLET BY MOUTH AT BEDTIME FOR CHOLESTEROL - REPORT ANY UNEXPLAINED MUSCLE PAIN/WEAKNESS TO YOUR PROVIDER 90 Dec 20, 2018 [id number] Nov 12, 2018 PAMELA RAMSEY BUDESONIDE 160MCG/FORMOTEROL FUM 4.5MCG/SPRAY INHL,ORAL,10.2 GM Active INHALE 2 PUFFS BY MOUTH TWO TIMES A DAY FOR BREATHING. SHAKE WELL. RINSE MOUTH AND SPIT AFTER EACH USE. 3 Apr 24, 2020 [id number] August 22, 2019 LISSA OATES [facility] CALCIUM/VITAMIN D TAB No n-VA TAKE BY MOUTH ONCE A DAY Non-V A Documented by: PADMA LONG nted at: [facility] CARBOXYMETHYLCELLULOSE NA 0.5% SOLN,OPH Active INSTILL ONE DROP IN BOTH EYES FOUR TIMES A DAY FOR DRY EYES 15 Feb 01, 2020 [id number] September 03 0 [facility] DICLOFENAC NA 1% GEL,TOP Discontinued APPLY 2 GRAMS A FFECTED AREA TWO TIMES A DAY NEEDED FOR PAIN AND INFLAMMATION. DO NOT EXCEED 16GM DAILY TO ANY AFFECTED JOINT OF LOWER EXTREMITIES. DO NOT EXCEED 8GM DAILY TO ANY AFFECTED JOINT OF UPPER EXTREMITES. DO NOT EXCEED TOTAL DOSE OF 32GM DAILY FOR ALL JOINTS. 100 Oct 31, 2018 [id number] Oct 06, 2018 [facility]ICK [facility] DICLOFENAC NA 1% GEL,TOP APPLY 2 GRAMS A FFECTED AREA TWO TIMES A DAY NEEDED FOR PAIN AND INFLAMMATION. DO NOT EXCEED 16GM DAILY TO ANY AFFECTED JOINT OF LOWER EXTREMITIES. DO NOT EXCEED 8GM DAILY TO ANY AFFECTED JOINT OF UPPER EXTREMITES. DO NOT EXCEED TOTAL DOSE OF 32GM DAILY FOR ALL JOINTS. 100 Jan 17, 2019 [id number] Dec 20, 2018 PAMELA RAMSEY FLUTICASONE PROPIONATE 50MCG/SPRAY SOLN,NASAL,16GM Active INSTILL 1 SPRAY IN EACH NOSTRIL ONCE A DAY SHAKE GENTLY BEFORE USE! - MUST BE USED DIRECTED FOR 3 WEEKS TO PROVIDE BENEFIT. * NO EARLY REFILLS * 1UNIT = 30DAYS AT 4 PF/DAY OR 60DAYS AT 2PF/DAY 2 Dec 19, 2019 [id number] August 26, 2019 PAMELA RAMSEY KETOTIFEN 0.025% SOLN,OPH Active INSTILL 1 DROP IN BOTH EYES TWO TIMES A DAY FOR RELIEF OF ALLERGY SYMPTOMS IN EYE(S) 10 Feb 01, 2020 [id number] September 04, 2019 [facility] LANCET,SOFTCLIX Active USE LANCET BIW FOR TESTING BL OOD GLUCOSE DIRECTED 100 Sep 29, 2020 [id number] Sep 30, 2019 [facility] RANK[facility] LANCET,SOFTCLIX Discontinued USE LANCET BIW FO R TESTING BLOOD GLUCOSE DIRECTED Dec 19, 2019 [id number] Jun 06, 2019 PAMELA RAMSEY LANCET,SOFTCLIX Discontinued USE LANCET BIW FO R TESTING BLOOD GLUCOSE DIRECTED 100 Jul 25, 2019 [id number] Nov 12, 2018 PAMELA RAMSEY LISINOPRIL 40MG TAB Non- [facility] TAKE ONE-HALF TABLET BY MOUTH EVERY MORNING Non-VA Documented by: PAMELA RAMSEY nted at: [facility] LORATADINE/PSEUDOEPHEDRINE TAB,SA Non-VA TAKE BY MOUTH No n-VA Documented by: JUAN LANG Docume nted at: ARTUR BLAS [facility] [...] ACID (REPLACES ACIPHEX) 180 Dec 19, 2019 [id number] August 26, 2019 PAMELA RAMSEY POLYETHYLENE GLYCOL [...] Non-VA Documented by: KATHERINE MATTume nted at: [facility] PREGABALIN 150MG CAP,ORAL Non-VA TAKE 1 CAPSULE BY MOUTH TWO TIMES A DAY Non-VA Docume nted by: PAMELA RAMSEY nted at: [facility] SEMAGLUTIDE INJ,SOLN Non -VA INJECT SUBCUTANEOUSLY EVERY WEEK Non-VA Documented by: ANAYELI KIRKPATRICK nted at: [facility] TERBINAFINE HCL 1% CREAM,TOP Active APPLY LIGHT LY TO AFFECTED AREA TWO TIMES A DAY FOR INFECTION 90 Sep 23, 2020 [id number] Sep 24, 2019 ADRIEL HERNANDEZ CB UREA 20% CREAM,TOP Active APPLY LIGHTLY (20%) TO AFFECTED AREA TWO TIMES A DAY NEEDED TO PROMOTE HEALING,RUB IN UNTIL COMPLETELY ABSORBED*FOR TOPICAL USE ONLY* APPLY TO BOTH FEET DIRECTED. 90 Sep 25, 2020 [id number] Sep 26, 2019 ADRIEL HERNANDEZ CB Problems [...] Alcohol intake above recommended sensible limits Active 978025171 PADMA LONG [facility] Allergic conjunctivitis Active 044053133 [facility] Bilateral senile combined form cataracts of eyes Active 80820888312 9108 [facility] Bilateral tinnitus Active 8999598293720 CHASTITY JEAN [facility] Coronary arteriosclerosis Active 36872265 September 08, 2014 Entered By: PADMA LONG Comment: hx of ptca to RCA several yrs. agoSeptember 08, 2014 Entered By: PADMA LONG Comment: heart cath 09/01/14, neg. / previous stent to RCA,, via abida meneses ks HATCHER, JENNEY R [facility] Diabetes mellitus Active 97506249 PAMELA RAMSEY [facility] Disorder of pancreas Active 2082593 September 08, 2014 Entered By: PADMA LONG Comment: 2.5cm low density lseion in bodyMay 2014 Entered By: PADMA LONG Comment: question of communication with pancreatic ductMa2014 Entered By: PADMA LONG Comment: favored to be cystic pancreatic cancerMay 2014 Entered By: PADMA LONG Comment: per abdominal CT 09/01/14, via mary menesesmangum, ks PDAMA LONG [facility] Dry eyes Active 629147482 NEDA SHAW Juan M [facility] Gastro-esophageal reflux disease without esophagitis ( SNOMED CT 894830185) Active 942350454 ALF GUEVARA [facility] History of malignant neoplasm of lung Active 907725421 CHAPO BARRETO [facility] Hyperlipidemia (SNOMED CT 47280404) Active 31259617 PAMELA RAMSEY [facility] Lung mass Active 549147142 September 08, 2014 E ntered By: PADMA LONG Comment: 4.5 cm mass, post. segment right upper lobe.September 08, 2014 Entered By: PADMA LONG Comment: mild adenopathy in mediastinum and bilat. hilaMay 2014 Entered By: PADMA LONG Comment: most likely related to lung cancerMay 2014 Entered By: PADMA LONG Comment: per ct angio of chest with contrast 09/01/14,via abida menesesohJun 2014 Entered By: PADMA LONG Comment: per path report- mod. differentiated bronchogenic adenoca. 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, three benign polyps- sigmoid colon, transverse colon,cecum. see path report cprs SHARRON TORRES JEOVANY [facility] Pulmonary emphysema Active 86207301 0 BRIANA GAVIN [facility] Sensorineural hearing loss, bilateral Active 313200162 CHASTITY JEAN [facility] Snoring Active 80956216 Jayshree BULLOCKUBAIR [facility] Type 2 diabetes mellitus without complication Active 103617040 NEDA SHAW [facility] Environmental Allergies (ICD-9-CM 477.9) Inactive 477.9 Dec 18, 2017 PADMA LONG [facility] External hemorrhoids without mention of complication (ICD-9- CM 455.3) Inactive 455.3 Dec 18, 2017 [facility] Impotence of organic origin (ICD-9-CM 607.84) Inactive 607.84 Dec 18, 2017 PADMA LONG [facility] Screening for Lipoid disorders (ICD-9-CM V77.91) Inactive V77.91 Jan 18, 2007 [facility] Stye * (ICD-9-CM 373.11) Inactive 373.11 Dec 18, 8 Jan 18, 2007 Entered By: PADMA LONG Comment: bilat lower lids, chronic/recurrent [facility]MA [facility] Tobacco Use Disorder, Continuous [...] data comes from all [place] treatment facilities. Date/Time Pathology Report Provider Source [...] 11:11) Microscopic examination is performed. DIAGNOSIS: Specimen: [id number] Spec Type: SURGICAL Abdulkadir: 04/03/19 Rec: 04/03/19-1241 PATHOLOGIC DIAGNOSIS Skin lesion, right upper cheek, biopsy: 1. Seborrheic keratosis, not involving resection margins. 2. Solar elastosis. Skin lesion, right lower mid margin, biopsy: 1. Seborrheic keratosis, with tumor at tissue edge/margin, but with benign features. LL COPIES TO: KATHERINE MATT [facility] PATHOLOGIST CODES: 42335/2 at 1235 The gross and microscopic examinations and interpretation were performed at [facility] Department of Pathology, [address] [place] [address]. Slides and paraffin blocks are on file at [facility]. =--=--=--=--=--=--=--=--=--=--=--=--=--=--=--=--=--=--=--=--=--=--=--=--=--=-- Performing Laboratory: Surgical Pathology Report Performed By: [facility] [CLIA# [id number]] [address] [place] [address] [facility] 15 Encounter Notes: All associated encounter [...] 6.9. Repeat 6 months. /gisell/ PAMELA RAMSEY COMPUTER AIDE Signed: 03/24/2019 08:37 03/26/2019 ADDENDUM STATUS: COMPLETED Contacted pt via telephone and notified of A1C results and providers instructions. Pt V/U. /gisell/ SHANIQUA SCHMIDT RN Signed: 03/26/2019 13:15 [facility]
--- OUTSIDE RECORDS SUMMARY | 2019-12-02 13:11 | XMS REPORT | Encounter Summary ---
Author [facility] Address [address] [place] [address] Phone Unavailable Care Team Providers Care Hospice Case Manager Name Role Phone ADRIEL HERNANDEZ PCP [...] apnea (adult) (pediatric) KARI DUPREE [facility] IHE Encounter Template Text not used by MT Assessments - Encounter Diagnoses This section includes the primary and secondary diag noses documented for the Encounter. Date/Time Primary/Secondary Diagnosis Diagnosis Name Provider Source Mar 25, 2019 10:55 AM PRIMARY Obstructive sleep apnea (a dult) (pediatric) DELMERKIMBERLY [facility] Plan of Treatment: Future Appointments (+ [...] appointme nts. The data comes from all [facility]. Appointment Date/Time Appointment Type Appointment Facili ty Name Mar 26, 2019 10:00 AM AMBULATORY - NONE ARTUR BLAS [facility] Apr 03, 2019 10:00 AM AMBULATORY - [...] ARTUR BLAS [facility] Active, Pending, and Scheduled Orders This section [...] the Encounter. The data comes from all [facility]. Test Date/Time Test Type Test Details Facility Name Apr 01, 2019 10:33 AM Consult Order [facility] [id number] Cons [place] Operator's Choice [facility] Surgical Procedures: All associated to the encounter No Data Provided for This Section Lab Results: +/- 30 days of the encounter This section includes the Chemistry and Hematology Lab R esults on record with MT for the patient. Radiology Reports and Pathology Report s are provided separately, in subsequent sections. Lab Results This section contains the Chemistry/Hematology Results usha t were resulted 30 days before or 30 days after the date of the Encounter. Date/Time Source Result Type Result - Unit Interpretation Reference Range Comment Mar 21, 2019 08:55 AM [facility] HEMOGLOBIN A1C Specimen Type: BLOOD [...] took place. Date/Time Smoking Status/Tobacco Use Comment [facility] it Nov 23, 2017 09:51 AM [...] to adverse reactions to drug (diso rder) [facility] PLAVIX September 08, 2014 Propensity to adverse reactions to drug (diso rder) [facility] 15 Medications: [facility] dispensed (-15 [...] TEST BLOOD GLUCOSE 50 Dec 19, 2019 [id number] September 04, 2019 PAMELA RAMSEY CBGUILLERMO ACCU-CHEK CHARLES PLUS (GLUCOSE) TEST STRIP Discontinued USE 1 STRIP FOR TESTING TWO TIMES PER WEEK - DIRECTED TO TEST BLOOD GLUCOSE 50 Jul 25, 2019 [id number] Nov 12, 2018 PAMELA RAMSEY ALBUTEROL SO4 90MCG/ACTUAT (CFC-F) INHL,ORAL,6.7GM Active INHALE 2 PUFFS BY ORAL INHALATION EVERY 4 HOURS NEEDED FOR BREATHING. SHAKE WELL. RINSE MOUTHPIECE FREQUENTLY TO PREVENT CLOGGING. USE NEEDED FOR SHORTNESS OF AIR/WHEEZING FOR BREATHING. SHAKE WELL. RINSE MOUTHPIECE FREQUENTLY TO PREVENT CLOGGING. USE NEEDED FOR SHORTNESS OF AIR/WHEEZING Dec 19, 2019 [id number] September 04, 2019 PAMELA RAMSEY ALCOHOL PREP PAD Active USE 1 PAD ON SKIN BIW TO CLEAN AND DISINFECT THE SKIN 200 Sep 29, 2020 [id number] Sep 30, 2019 MAURICIO RANKIN [facility] ALCOHOL PREP PAD Discontinued USE 1 PAD ON SKIN BI W TO CLEAN AND DISINFECT THE SKIN 200 Dec 19, 2019 [id number] Jun 06, 2019 PAMELA RAMSEY [facility] ALCOHOL PREP PAD Discontinued USE 1 PAD ON SKIN BI W TO CLEAN AND DISINFECT THE SKIN 200 Jul 25, 2019 [id number] Nov 12, 2018 PAMELA RAMSEY [facility] ASCORBIC ACID 250MG TAB Non-VA TAKE ONE TABLET BY MOUTH ONCE A DAY Non-VA Documented by: SHANIQUA SCHMIDT nted at: [facility] ASPIRIN 25MG/DIPYRIDAMOLE 200MG CAP,SA Active T CHAPIN 1 CAPSULE BY MOUTH TWO TIMES A DAY - SWALLOW WHOLE. DO NOT CRUSH OR CHEW. FOR RECURRENT TIA/STROKE 180 Dec 19, 2019 [id number] Dec 20, 2018 PAMELA RAMSEY [facility] ASPIRIN 25MG/DIPYRIDAMOLE 200MG CAP,SA Discontinued T CHAPIN 1 CAPSULE BY MOUTH TWO TIMES A DAY - SWALLOW WHOLE. DO NOT CRUSH OR CHEW. FOR RECURRENT TIA/STROKE 180 Feb 06, 2019 [id number] Sep 28, 2018 ZACHARY GRECO [facility] ASPIRIN 81MG TAB,EC Non- VA TAKE ONE TABLET BY MOUTH ONCE A DAY Non-VA Documented by: PADMA LONG nted at: [facility] ATORVASTATIN CA 80MG TAB Active TAKE ONE TABLET BY MOUTH AT BEDTIME FOR CHOLESTEROL - REPORT ANY UNEXPLAINED MUSCLE PAIN/WEAKNESS TO YOUR PROVIDER 90 Dec 19, 2019 [id number] September 04, 2019 PAMELA RAMSEY ATORVASTATIN CA 80MG TAB Discontinued TAKE ONE TABLET BY MOUTH AT BEDTIME FOR CHOLESTEROL - REPORT ANY UNEXPLAINED MUSCLE PAIN/WEAKNESS TO YOUR PROVIDER 90 Dec 20, 2018 [id number] Nov 12, 2018 PAMELA RAMSEY [facility] BUDESONIDE 160MCG/FORMOTEROL FUM 4.5MCG/SPRAY INHL,ORAL,10.2 GM Active INHALE 2 PUFFS BY MOUTH TWO TIMES A DAY FOR BREATHING. SHAKE WELL. RINSE MOUTH AND SPIT AFTER EACH USE. 3 Apr 24, 2020 [id number] August 22, 2019 LISSA OATES [facility] CALCIUM/VITAMIN D TAB No n-VA TAKE BY MOUTH ONCE A DAY Non-V A Documented by: PADMA LONG nted at: [facility] CARBOXYMETHYLCELLULOSE NA 0.5% SOLN,OPH Active INSTILL ONE DROP IN BOTH EYES FOUR TIMES A DAY FOR DRY EYES Feb 01, 2020 [id number] September 03 0 [facility] DICLOFENAC NA 1% GEL,TOP Discontinued APPLY 2 GRAMS A FFECTED AREA TWO TIMES A DAY NEEDED FOR PAIN AND INFLAMMATION. DO NOT EXCEED 16GM DAILY TO ANY AFFECTED JOINT OF LOWER EXTREMITIES. DO NOT EXCEED 8GM DAILY TO ANY AFFECTED JOINT OF UPPER EXTREMITES. DO NOT EXCEED TOTAL DOSE OF 32GM DAILY FOR ALL JOINTS. 100 Oct 31, 2018 [id number] Oct 06, 2018 ANAYELI KIRKPATRICK [facility] DICLOFENAC NA 1% GEL,TOP APPLY 2 GRAMS A FFECTED AREA TWO TIMES A DAY NEEDED FOR PAIN AND INFLAMMATION. DO NOT EXCEED 16GM DAILY TO ANY AFFECTED JOINT OF LOWER EXTREMITIES. DO NOT EXCEED 8GM DAILY TO ANY AFFECTED JOINT OF UPPER EXTREMITES. DO NOT EXCEED TOTAL DOSE OF 32GM DAILY FOR ALL JOINTS. 100 Jan 17, 2019 [id number] Dec 20, 2018 PAMELA RAMSEY FLUTICASONE PROPIONATE 50MCG/SPRAY SOLN,NASAL,16GM Active INSTILL 1 SPRAY IN EACH NOSTRIL ONCE A DAY SHAKE GENTLY BEFORE USE! - MUST BE USED DIRECTED FOR 3 WEEKS TO PROVIDE BENEFIT. * NO EARLY REFILLS * 1UNIT = 30DAYS AT 4 PF/DAY OR 60DAYS AT 2PF/DAY 2 Dec 19, 2019 [id number] August 26, 2019 PAMELA RAMSEY [facility] KETOTIFEN 0.025% SOLN,OPH Active INSTILL 1 DROP IN BOTH EYES TWO TIMES A DAY FOR RELIEF OF ALLERGY SYMPTOMS IN EYE(S) 10 Feb 01, 2020 [id number] September 04, 2019 [facility] LANCET,SOFTCLIX Active USE LANCET BIW FOR TESTING BL OOD GLUCOSE DIRECTED 100 Sep 29, 2020 [id number] Sep 30, 2019 MAURICIO RANKIN [facility] LANCET,SOFTCLIX Discontinued USE LANCET BIW FO R TESTING BLOOD GLUCOSE DIRECTED 100 Dec 19, 2019 [id number] Jun 06, 2019 PAMELA RAMSEY LANCET,SOFTCLIX Discontinued USE LANCET BIW FO R TESTING BLOOD GLUCOSE DIRECTED Jul 25, 2019 [id number] Nov 12, 2018 PAMELA RAMSEY LISINOPRIL 40MG TAB Non- VA TAKE ONE-HALF TABLET BY MOUTH EVERY MORNING Non-VA Documented by: PAMELA RAMSEY nted at: [facility] LORATADINE/PSEUDOEPHEDRINE TAB,SA Non-VA TAKE BY MOUTH No n-VA Documented by: JUAN LANG nted at: ARTUR BLAS [facility] MAGNESIUM OXIDE 400MG TAB Non-VA TAKE ONE [...] ACID (REPLACES ACIPHEX) 180 Dec 19, 2019 [id number] August 26, 2019 PAMELA RAMSEY POLYETHYLENE GLYCOL [...] ANAYELI KIRKPATRICK Docume nted at: [facility] [place] [facility] TERBINAFINE HCL 1% CREAM,TOP Active APPLY LIGHT LY TO AFFECTED AREA TWO TIMES A DAY FOR INFECTION 90 Sep 23, 2020 [id number] Sep 24, 2019 ADRIEL HERNANDEZ UREA 20% CREAM,TOP Active APPLY LIGHTLY (20%) TO AFFECTED AREA TWO TIMES A DAY NEEDED TO PROMOTE HEALING,RUB IN UNTIL COMPLETELY ABSORBED*FOR TOPICAL USE ONLY* APPLY TO BOTH FEET DIRECTED. 90 Sep 25, 2020 [id number] Sep 26, 2019 ADRIEL HERNANDEZ Problems (Conditions): [...] Alcohol intake above recommended sensible limits [facility] 856656129 [facility] Allergic conjunctivitis Active 571594808 [facility]IN[facility]A [facility] Bilateral senile combined form cataracts of eyes Active 61190141059 9108 MITCHELLNEDA [facility] Bilateral tinnitus Active 3309411529834 CHASTITY JEAN [facility] Coronary arteriosclerosis Active 28741384 September 08, 2014 Entered By: PADMA LONG Comment: hx of ptca to RCA several yrs. agoSeptember 08, 2014 Entered By: PADMA LONG Comment: heart cath 09/01/14, neg. / previous stent to RCA,, via abida meneses [place] HATCHER, JENNEY R [facility] Diabetes mellitus Active 95889284 PAMELA RAMSEY [facility] Disorder of pancreas Active 5427387 September 08, 2014 Entered By: PADMA LONG Comment: 2.5cm low density lseion in bodyMay 2014 Entered By: PADMA LONG Comment: question of communication with pancreatic ductMay 2014 Entered By: PADMA LONG Comment: favored to be cystic pancreatic cancerMay 2014 Entered By: PADMA LONG Comment: per abdominal CT 09/01/14, via [place], [place] [facility] Dry eyes Active 798537176 [facility] Gastro-esophageal reflux disease without esophagitis ( SNOMED CT 027606499) Active 356531278 [facility] History of malignant neoplasm of lung Active 831929773 CHAPO BARRETO [facility] Hyperlipidemia (SNOMED CT 07508865) Active 15482481 PAMELA RAMSEY [facility] Lung mass Active 054144894 September 08, 2014 E ntered By: PADMA LONG Comment: 4.5 cm mass, post. segment right upper lobe.September 08, 2014 Entered By: PADMA LONG Comment: mild adenopathy in mediastinum and bilat. [email or web address] Entered By: PADMA LONG Comment: most likely related to lung cancerMa2014 Entered By: PADMA LONG Comment: per ct angio of chest with contrast 09/01/14,[place] 2014 Entered By: PADMA LONG Comment: per path report- mod. differentiated bronchogenic adenoca. 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 Active 45253419 KATHERINE MATT [facility] Obesity Active 470511121 SONG BULLOCK [facility] Obstructive sleep apnea syndrome (SNOMED CT 37071716) Active 160773 015 [facility] Pancreatic cyst Active 11901359 JAYLENE GUEVARA [facility] Papilloma of right eyelid Active [id number] NEDA SHAW [facility] Polyp of colon Active 53128223 Jan 23 Entered By: PADMA LONG Comment: c-scope 01/17/16, multiple benign colonic polypsJun 28, 2017 Entered By: PADMA LONG Comment: c-scope,06/25/17,[facility], three benign polyps- sigmoid colon, transverse colon,cecum. see path report cprs SHARRON TORRES MO THAYER [facility] Pulmonary emphysema Active 19060145 0 BRIANA LESLYE [facility] Sensorineural hearing loss, bilateral Active 735828178 CHASTITY JEAN Nicol [facility] Snoring Active 75962164 SONG BULLOCK [facility] Type 2 diabetes mellitus without complication Active 933774465 NEDA SHAW [facility] Environmental Allergies (ICD-9-CM 477.9) Inactive 477.9 Dec 18, 2017 PADMA LONG [facility] External hemorrhoids without mention of complication (ICD-9- CM 455.3) Inactive 455.3 Dec 18, 2017 PADMA LONG [facility] Impotence of organic origin (ICD-9-CM 607.84) Inactive 607.84 Dec 18, 2017 PADMA LONG [facility] Screening for Lipoid disorders (ICD-9-CM V77.91) Inactive V77.91 Jan 18, 2007 PADMA LONG [facility] Stye * (ICD-9-CM 373.11) Inactive 373.11 Dec 18, 201 8 Jan 18, 2007 Entered By: PADMA LONG Comment: bilat lower lids, chronic/recurrent [facility]MA LONG [facility] Tobacco Use Disorder, Continuous [...] the Encounter. The data comes from all [facility] facilities. Date/Time Pathology Report Provider Source [...] 11:11) Microscopic examination is performed. DIAGNOSIS: Specimen: [id number] Spec Type: SURGICAL Abdulkadir: 04/03/19 Rec: 04/03/19-1241 PATHOLOGIC DIAGNOSIS Skin lesion, right upper cheek, biopsy: 1. Seborrheic keratosis, not involving resection margins. 2. Solar elastosis. Skin lesion, right lower mid margin, biopsy: 1. Seborrheic keratosis, with tumor at tissue edge/margin, but with benign features. LL COPIES TO: [facility] PATHOLOGIST CODES: 75602/2 at 1235 The gross and microscopic examinations and interpretation were performed at [facility] Department of Pathology, [address] [place] [id number]. Slides and paraffin blocks are on file at [facility]. =--=--=--=--=--=--=--=--=--=--=--=--=--=--=--=--=--=--=--=--=--=--=--=--=--=-- Performing Laboratory: Surgical Pathology Report Performed By: [facility] [CLIA# [id number]] [address] [place] [id number] ED[address] [facility] 15 Encounter Notes: All associated encounter notes No Data Provided for This Section
--- OUTSIDE RECORDS SUMMARY | 2019-12-02 13:12 | XMS REPORT | Encounter Summary ---
Author [facility] Address [address] [place] [address] Phone Unavailable Care Team Providers Care Commercial Hvac Technician Name Role Phone ADRIEL HERNANDEZ PCP [...] Obstructive Sleep Apnea (Adult) (Pediatric) KARI DUPREE [facility] IHE Encounter Template Text not used by CT Assessments - Encounter Diagnoses This section includes the primary and secondary diag noses documented for the Encounter. Date/Time Primary/Secondary Diagnosis Diagnosis Name Provider Source Mar 21, 2019 09:31 AM PRIMARY Obstructive sleep apnea (a dult) (pediatric) DELMERKIMBERLY [facility] Plan of Treatment: Future Appointments (+ [...] appointme nts. The data comes from all [facility]. Appointment Date/Time Appointment Type Appointment Facili ty Name Mar 26, 2019 10:00 AM AMBULATORY - NONE ARTUR BLAS [facility] Apr 03, 2019 10:00 AM AMBULATORY - SURGERY ARTUR BLAS [facility] Apr 14, 2019 10:00 AM AMBULATORY - SURGERY [facility] Apr 28, 2019 11:00 AM AMBULATORY - NONE ARTUR BLAS [facility] Jun 25, 2019 11:30 AM AMBULATORY - NONE ARTUR BLAS [facility] Jun 25, 2019 01:15 PM AMBULATORY - MEDICINE ARTUR Shu BLAS Maite [facility] Jul 23, 2019 11:00 AM AMBULATORY - NONE [facility] BLAS [facility] Jul 25, 2019 08:00 AM AMBULATORY - NONE ARTUR BLAS [facility] Aug 07, 2019 10:30 AM AMBULATORY - MEDICINE ARTUR Suh LEVIMila [facility] Active, Pending, and Scheduled Orders This [...] the Encounter. The data comes from all [facility]. Test Date/Time Test Type Test Details Facility Name Apr 01, 2019 10:33 AM Consult Order [facility] [id number] Cons Combination Presser's Choice [facility] Surgical Procedures: All [...] Comment Mar 21, 2019 08:55 AM [facility] HEMOGLOBIN A1C Specimen Type: BLOOD [...] YRS OR MORE PORSHA BLAS [facility] Tobacco Use History This section includes a history of the smoking, or tobacco -related health factors, that were collected on or before the date of the Encoun ter. The data comes from the CT facility where the Encounter took place. Date/Time Smoking Status/Tobacco Use Comment [facility] Jun 26, 2018 02:13 PM VA-TOBACCO QUIT 15 YRS OR MORE [facility] BL[facility] Jun 27, 2017 01:39 PM NON-TOBACCO [...] to drug (diso rder) [facility] Medications: VA dispensed (-15 months) and Non-VA Documented (Obtained Outside A) Section Date Range: 1) prescriptions processed by a VA pharmacy in the last 15 m [facility], and 2) all medications [...] TEST BLOOD GLUCOSE 50 Dec 19, 2019 [id number] September 04, 2019 PAMELA RAMSEY GUILLERMO ACCU-CHEK CHARLES PLUS (GLUCOSE) TEST STRIP Discontinued USE 1 STRIP FOR TESTING TWO TIMES PER WEEK - DIRECTED TO TEST BLOOD GLUCOSE 50 Jul 25, 2019 [id number] Nov 12, 2018 PAMELA RAMSEY ALBUTEROL SO4 90MCG/ACTUAT (CFC-F) INHL,ORAL,6.7GM Active INHALE 2 PUFFS BY ORAL INHALATION EVERY 4 HOURS NEEDED FOR BREATHING. SHAKE WELL. RINSE MOUTHPIECE FREQUENTLY TO PREVENT CLOGGING. USE NEEDED FOR SHORTNESS OF AIR/WHEEZING FOR BREATHING. SHAKE WELL. RINSE MOUTHPIECE FREQUENTLY TO PREVENT CLOGGING. USE NEEDED FOR SHORTNESS OF AIR/WHEEZING 1 Dec 19, 2019 [id number] September 04, 2019 PAMELA RAMSEY ALCOHOL PREP PAD Active USE 1 PAD ON SKIN BIW TO CLEAN AND DISINFECT THE SKIN 200 Sep 29, 2020 [id number] Sep 30, 2019 MAURICIO RANKIN [facility] ALCOHOL PREP PAD Discontinued USE 1 PAD ON SKIN BI W TO CLEAN AND DISINFECT THE SKIN 200 Dec 19, 2019 [id number] Jun 06, 2019 PAMELA RAMSEY CBGUILLERMO ALCOHOL PREP PAD Discontinued USE 1 PAD ON SKIN BI W TO CLEAN AND DISINFECT THE SKIN 200 Jul 25, 2019 [id number] Nov 12, 2018 PAMELA RAMSEY ASCORBIC ACID 250MG TAB Non-VA TAKE ONE TABLET BY MOUTH ONCE A DAY Non-VA Documented by: SHANIQUA SCHMIDT nted at: [facility] ASPIRIN 25MG/DIPYRIDAMOLE 200MG CAP,SA Active T CHAPIN 1 CAPSULE BY MOUTH TWO TIMES A DAY - SWALLOW WHOLE. DO NOT CRUSH OR CHEW. FOR RECURRENT TIA/STROKE 180 Dec 19, 2019 [id number] Dec 20, 2018 PAMELA RAMSEY [facility] ASPIRIN 25MG/DIPYRIDAMOLE 200MG CAP,SA Discontinued T CHAPIN 1 CAPSULE BY MOUTH TWO TIMES A DAY - SWALLOW WHOLE. DO NOT CRUSH OR CHEW. FOR RECURRENT TIA/STROKE 180 Feb 06, 2019 [id number] Sep 28, 2018 ZACHARY GRECO V [facility] ASPIRIN 81MG TAB,EC Non- VA TAKE ONE TABLET BY MOUTH ONCE A DAY Non-VA Documented by: PADMA LONG nted at: [facility] ATORVASTATIN CA 80MG TAB Active TAKE ONE TABLET BY MOUTH AT BEDTIME FOR CHOLESTEROL - REPORT ANY UNEXPLAINED MUSCLE PAIN/WEAKNESS TO YOUR PROVIDER Dec 19, 2019 [id number] September 04, 2019 PAMELA RAMSEY ATORVASTATIN CA 80MG TAB Discontinued TAKE ONE TABLET BY MOUTH AT BEDTIME FOR CHOLESTEROL - REPORT ANY UNEXPLAINED MUSCLE PAIN/WEAKNESS TO YOUR PROVIDER 90 Dec 20, 2018 [id number] Nov 12, 2018 PAMELA RAMSEY BUDESONIDE 160MCG/FORMOTEROL FUM 4.5MCG/SPRAY INHL,ORAL,10.2 GM Active INHALE 2 PUFFS BY MOUTH TWO TIMES A DAY FOR BREATHING. SHAKE WELL. RINSE MOUTH AND SPIT AFTER EACH USE. 3 Apr 24, 2020 [id number] August 22, 2019 [facility] CALCIUM/VITAMIN D TAB No n-VA TAKE BY MOUTH ONCE A DAY Non-V A Documented by: PADMA LONG nted at: [facility] CARBOXYMETHYLCELLULOSE NA 0.5% SOLN,OPH Active INSTILL ONE DROP IN BOTH EYES FOUR TIMES A DAY FOR DRY EYES Feb 01, 2020 [id number] September 03 0 [facility] DICLOFENAC NA 1% GEL,TOP Discontinued APPLY 2 GRAMS A FFECTED AREA TWO TIMES A DAY NEEDED FOR PAIN AND INFLAMMATION. DO NOT EXCEED 16GM DAILY TO ANY AFFECTED JOINT OF LOWER EXTREMITIES. DO NOT EXCEED 8GM DAILY TO ANY AFFECTED JOINT OF UPPER EXTREMITES. DO NOT EXCEED TOTAL DOSE OF 32GM DAILY FOR ALL JOINTS. 100 Oct 31, 2018 [id number] Oct 06, 2018 A[facility]ELI [facility]ATRICK [facility] [...] FOR ALL JOINTS. 100 Jan 17, 2019 [id number] Dec 20, 2018 PAMELA RAMSEY FLUTICASONE PROPIONATE 50MCG/SPRAY SOLN,NASAL,16GM Active INSTILL 1 SPRAY IN EACH NOSTRIL ONCE A DAY SHAKE GENTLY BEFORE USE! - MUST BE USED DIRECTED FOR 3 WEEKS TO PROVIDE BENEFIT. * NO EARLY REFILLS * 1UNIT = 30DAYS AT 4 PF/DAY OR 60DAYS AT 2PF/DAY 2 Dec 19, 2019 [id number] August 26, 2019 PAMELA RAMSEY KETOTIFEN 0.025% SOLN,OPH Active INSTILL 1 DROP IN BOTH EYES TWO TIMES A DAY FOR RELIEF OF ALLERGY SYMPTOMS IN EYE(S) Feb 01, 2020 [id number] September 04, 2019 [facility] LANCET,SOFTCLIX Active USE LANCET BIW FOR TESTING BL OOD GLUCOSE DIRECTED 100 Sep 29, 2020 [id number] Sep 30, 2019 MAURICIO RANKIN [facility] LANCET,SOFTCLIX Discontinued USE LANCET BIW FO R TESTING BLOOD GLUCOSE DIRECTED Dec 19, 2019 [id number] Jun 06, 2019 PAMELA RAMSEY LANCET,SOFTCLIX Discontinued USE LANCET BIW FO R TESTING BLOOD GLUCOSE DIRECTED Jul 25, 2019 [id number] Nov 12, 2018 PAMELA RAMSEY LISINOPRIL 40MG [...] ACID (REPLACES ACIPHEX) 180 Dec 19, 2019 [id number] August 26, 2019 PAMELA RAMSEY POLYETHYLENE GLYCOL [...] Non-VA Documented by: KATHERINE MATT nted at: [facility] PREGABALIN 150MG CAP,ORAL Non-VA TAKE 1 CAPSULE BY MOUTH TWO TIMES A DAY Non-VA Docume nted by: PAMELA RAMSEY Docume nted at: [facility] SEMAGLUTIDE INJ,SOLN Non -VA INJECT SUBCUTANEOUSLY EVERY WEEK Non-VA Documented by: ANAYELI KIRKPATRICK Docume nted at: [facility] [place] [facility] TERBINAFINE HCL 1% CREAM,TOP Active APPLY LIGHT LY TO AFFECTED AREA TWO TIMES A DAY FOR INFECTION Sep 23, 2020 [id number] Sep 24, 2019 ADRIEL HERNANDEZ UREA 20% CREAM,TOP Active APPLY LIGHTLY (20%) TO AFFECTED AREA TWO TIMES A DAY NEEDED TO PROMOTE HEALING,RUB IN UNTIL COMPLETELY ABSORBED*FOR TOPICAL USE ONLY* APPLY TO BOTH FEET DIRECTED. 90 Sep 25, 2020 [id number] Sep 26, 2019 ADRIEL HERNANDEZ Problems (Conditions): [...] Alcohol intake above recommended sensible limits Active 661658782 PADMA [facility] Allergic conjunctivitis Active 720420320 [facility] Bilateral senile combined form cataracts of eyes Active 47229635432 9108 [facility] Bilateral tinnitus Active 2273863010489 [facility] Coronary arteriosclerosis Active 63862742 September 08, 2014 Entered By: PADMA LONG Comment: hx of ptca to RCA several yrs. 2014 Entered By: PADMA LONG Comment: heart cath 09/01/14, neg. / previous stent to RCA,, via [place]eses [place] HATCHER, JENNEY [facility] Diabetes mellitus Active 80516160 [facility]EL[facility] RAM[facility]Y [facility] Disorder of pancreas Active 9169485 September 08, 2014 Entered By: PADMA LONG Comment: 2.5cm low density lseion in bodyMay 2014 Entered By: PADMA LONG Comment: question of communication with pancreatic ductMay 2014 Entered By: PADMA LONG Comment: favored to be cystic pancreatic cancerMay 2014 Entered By: PADMA LONG Comment: per abdominal CT 09/01/14, [place] PADMA LONG [facility] Dry eyes Active 363132858 [facility] Gastro-esophageal reflux disease without esophagitis ( SNOMED CT 256324746) Active 696581318 [facility] History of malignant neoplasm of lung Active 833136407 [facility] Hyperlipidemia (SNOMED CT 91625349) Active 83849479 PAMELA RAMSEY [facility] Lung mass Active 108359274 September 08, 2014 E ntered By: PADMA [...] path report- mod. differentiated bronchogenic adenoca. 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 Active 37875914 [facility] Obesity Active 384852479 [facility] Obstructive sleep apnea syndrome (SNOMED CT 17541320) Active 218090 015 [place] [facility] Pancreatic cyst Active 53047615 [facility] Papilloma of right eyelid Active [id number] [facility] Polyp of colon Active 20112487 Jan 23 Entered By: PADMA LONG Comment: c-scope 01/17/16, multiple benign colonic polypsJun 28, 2017 Entered By: PADMA LONG Comment: c-scope,06/25/17,[facility], three benign polyps- sigmoid colon, transverse colon,cecum. see path report cprs SHARRON TORRES Mila [facility] Pulmonary emphysema Active 23598090 0 [facility] Sensorineural hearing loss, bilateral Active 007575767 [facility] Snoring Active 07968888 [facility] Type 2 diabetes mellitus without complication Active 676955526 FACUNDO SHAWICINicol Lares [facility] Environmental Allergies (ICD-9-CM 477.9) Inactive 477.9 Dec 18, 2017 PADMA LONG [facility] External hemorrhoids without mention of complication (ICD-9- CM 455.3) Inactive 455.3 Dec 18, 2017 PADMA LONG [facility] Impotence of organic origin (ICD-9-CM 607.84) Inactive 607.84 Dec 18, 2017 PADMA LONG [facility] Screening for Lipoid disorders (ICD-9-CM V77.91) Inactive V77.91 Jan 18, 2007 PADMA LONG [facility] Stye * (ICD-9-CM 373.11) Inactive 373.11 Dec 18, 201 8 Jan 18, 2007 Entered By: PADMA LONG Comment: bilat lower lids, chronic/recurrent PADMA LONG [facility] Tobacco Use Disorder, Continuous Inactive 305.1 [...] the Encounter. The data comes from all [facility] facilities. Date/Time Pathology Report Provider [...] 11:11) Microscopic examination is performed. DIAGNOSIS: Specimen: [id number] Spec Type: SURGICAL Abdulkadir: 04/03/19 Rec: 04/03/19-1241 PATHOLOGIC DIAGNOSIS Skin lesion, right upper cheek, biopsy: 1. Seborrheic keratosis, not involving resection margins. 2. Solar elastosis. Skin lesion, right lower mid margin, biopsy: 1. Seborrheic keratosis, with tumor at tissue edge/margin, but with benign features. LL COPIES TO: [facility] PATHOLOGIST CODES: 49658/2 at 1235 The gross and microscopic examinations and interpretation were performed at [facility] Department of Pathology, [address] [place] [address]. Slides and paraffin blocks are on file at [facility]. =--=--=--=--=--=--=--=--=--=--=--=--=--=--=--=--=--=--=--=--=--=--=--=--=--=-- Performing Laboratory: Surgical Pathology Report Performed By: [facility] [CLIA# [id number]] [address] [place], [place] [address] 15 Encounter Notes: All associated [...] This appointment was done via TeleMed at [facility]. Consent for this TeleMed encounter was given by . Additional attendees, if any, were documented. Remotely accessed pt's data today and connected with him at the [facility]. This enounter will be for his annual [...] pressure set and confirmed with manometer @ [id number] /gisell/ KARI DUPREE LEAD ATG DEVELOPER respiratory therapist Signed: 03/21/2019 09:31 /gisell/ SONG BULLOCK STAFF PHYSICIAN/PLATFORM INSPECTOR Cosigned: 03/21/2019 15:25 KARI DUPREE [facility]
--- OUTSIDE RECORDS SUMMARY | 2019-12-02 13:12 | XMS REPORT | Encounter Summary ---
Author Author Department of [facility] HERBERTH kline Organization Department of [facility] Address [address] [place] [address] Phone Unavailable Care Team Providers Care Pediatric Geneticist Name Role Phone ADRIEL HERNANDEZ PCP [...] behavior of skin of eyelid (SNOMED CT [id number]) KATHERINE MATT [facility] IHE Encounter Template Text not used by [place] Assessments - Encounter Diagnoses This section includes the primary and secondary diag noses documented for the Encounter. 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 The data comes from all [facility]. Appointment Date/Time Appointment Type Appointment Facili ty Name Mar 21, 2019 09:15 AM AMBULATORY - NONE [facility] Mar 21, 2019 09:30 AM AMBULATORY - MEDICINE [facility] Mar 21, 2019 09:31 AM AMBULATORY - MEDICINE [facility] Mar 21, 2019 10:00 AM AMBULATORY - MEDICINE [facility] Mar 21, 2019 10:01 AM AMBULATORY - MEDICINE [facility] Mar 26, 2019 10:00 AM AMBULATORY - NONE [facility] Apr 03, 2019 10:00 AM AMBULATORY - SURGERY [facility] Apr 14, 2019 10:00 AM AMBULATORY - SURGERY [facility] Apr 28, 2019 11:00 AM AMBULATORY - NONE [facility] Jun 25, 2019 11:30 AM AMBULATORY - NONE [facility] Jun 25, 2019 01:15 PM AMBULATORY - MEDICINE ARTUR [facility] Jul 23, 2019 11:00 AM AMBULATORY - NONE [facility] Jul 25, 2019 08:00 AM AMBULATORY - NONE [facility] Aug 07, 2019 10:30 AM AMBULATORY - MEDICINE [facility] Active, Pending, and Scheduled Orders This [...] Encounter. The data comes from all [facility]. Test Date/Time Test Type Test Details Facility Name Apr 01, 2019 10:33 AM Consult Order [facility]-[id number] Cons Digital Sales Executive's Choice [facility] Surgical Procedures: All associated to the encounter No Data Provided for This Section Lab Results: +/- 30 days of the encounter This section includes the Chemistry and Hematology Lab R esults on record with [place] for the patient. Radiology Reports and Pathology Report s are provided separately, in subsequent sections. Lab Results This section contains the Chemistry/Hematology Results usha t were resulted 30 days before or 30 days after the date of the Encounter. Date/Time Source Result Type Result - Unit Interpretation Reference Range Comment Mar 21, 2019 08:55 AM [facility] HEMOGLOBIN A1C Specimen Type: BLOOD No comment entered. HEMOGLOBIN A1C 6.9 % H 4.0-6.0 Vital Signs: All taken on the encounter date This section contains inpatient and outpatient Vital Signs collected on the date of the Encounter. Date/Time Temperature Pulse Blood Pressure Respiratory Rate SP02 Pa in Height Weight Body Mass Index Source Mar 10, 2019 12:47 PM 0 [facility] Immunizations: All administered on the encounter date [...] to adverse reactions to drug (diso rder) [facility] 15 PLAVIX September 08, 2014 Propensity to adverse reactions to drug (diso rder) [facility] 15 Medications: VA dispensed (-15 months) and Non-VA Documented (Obtained Outside A) Section Date Range: 1) prescriptions processed by a [facility] pharmacy in the last 15 m [facility], and 2) all medications [...] TEST BLOOD GLUCOSE 50 Dec 19, 2019 [id number] September 04, 2019 PAMELA RAMSEY ACCU-CHEK CHARLES PLUS (GLUCOSE) TEST STRIP Discontinued USE 1 STRIP FOR TESTING TWO TIMES PER WEEK - DIRECTED TO TEST BLOOD GLUCOSE 50 Jul 25, 2019 [id number] Nov 12, 2018 PAMELA RAMSEY ALBUTEROL SO4 90MCG/ACTUAT (CFC-F) INHL,ORAL,6.7GM Active INHALE 2 PUFFS BY ORAL INHALATION EVERY 4 HOURS NEEDED FOR BREATHING. SHAKE WELL. RINSE MOUTHPIECE FREQUENTLY TO PREVENT CLOGGING. USE NEEDED FOR SHORTNESS OF AIR/WHEEZING FOR BREATHING. SHAKE WELL. RINSE MOUTHPIECE FREQUENTLY TO PREVENT CLOGGING. USE NEEDED FOR SHORTNESS OF AIR/WHEEZING 1 Dec 19, 2019 [id number] September 04, 2019 PAMELA RAMSEY [facility] ALCOHOL PREP PAD Active USE 1 PAD ON SKIN BIW TO CLEAN AND DISINFECT THE SKIN Sep 29, 2020 [id number] Sep 30, 2019 MAURICIO RANKIN [facility] ALCOHOL PREP PAD Discontinued USE 1 PAD ON SKIN BI W TO CLEAN AND DISINFECT THE SKIN 200 Dec 19, 2019 [id number] Jun 06, 2019 PAMELA RAMSEY [facility] ALCOHOL PREP PAD Discontinued USE 1 PAD ON SKIN BI W TO CLEAN AND DISINFECT THE SKIN 200 Jul 25, 2019 [id number] Nov 12, 2018 PAMELA RAMSEY ASCORBIC ACID 250MG TAB Non-VA TAKE ONE TABLET BY MOUTH ONCE A DAY Non-VA Documented by: SHANIQUA SCHMIDT nted at: [facility] ASPIRIN 25MG/DIPYRIDAMOLE 200MG CAP,SA Active T CHAPIN 1 CAPSULE BY MOUTH TWO TIMES A DAY - SWALLOW WHOLE. DO NOT CRUSH OR CHEW. FOR RECURRENT TIA/STROKE 180 Dec 19, 2019 [id number] Dec 20, 2018 PAMELA RAMSEY [facility] ASPIRIN 25MG/DIPYRIDAMOLE 200MG CAP,SA Discontinued T CHAPIN 1 CAPSULE BY MOUTH TWO TIMES A DAY - SWALLOW WHOLE. DO NOT CRUSH OR CHEW. FOR RECURRENT TIA/STROKE 180 Feb 06, 2019 [id number] Sep 28, 2018 ZACHARY GRECO V [facility] ASPIRIN 81MG TAB,EC Non- VA TAKE ONE TABLET BY MOUTH ONCE A DAY Non-VA Documented by: PADMA LONG nted at: [facility] ATORVASTATIN CA 80MG TAB Active TAKE ONE TABLET BY MOUTH AT BEDTIME FOR CHOLESTEROL - REPORT ANY UNEXPLAINED MUSCLE PAIN/WEAKNESS TO YOUR PROVIDER 90 Dec 19, 2019 [id number] September 04, 2019 PAMELA RAMSEY ATORVASTATIN CA 80MG TAB Discontinued TAKE ONE TABLET BY MOUTH AT BEDTIME FOR CHOLESTEROL - REPORT ANY UNEXPLAINED MUSCLE PAIN/WEAKNESS TO YOUR PROVIDER 90 Dec 20, 2018 [id number] Nov 12, 2018 PAMELA RAMSEY BUDESONIDE 160MCG/FORMOTEROL FUM 4.5MCG/SPRAY INHL,ORAL,10.2 GM Active INHALE 2 PUFFS BY MOUTH TWO TIMES A DAY FOR BREATHING. SHAKE WELL. RINSE MOUTH AND SPIT AFTER EACH USE. 3 Apr 24, 2020 [id number] August 22, 2019 LISSA OATES [facility] CALCIUM/VITAMIN D TAB No n-VA TAKE BY MOUTH ONCE A DAY Non-V A Documented by: PADMA LONG nted at: [facility] CARBOXYMETHYLCELLULOSE NA 0.5% SOLN,OPH Active INSTILL ONE DROP IN BOTH EYES FOUR TIMES A DAY FOR DRY EYES Feb 01, 2020 [id number] September 03 0 ABILENENEDA [facility] DICLOFENAC NA 1% GEL,TOP Discontinued APPLY 2 GRAMS A FFECTED AREA TWO TIMES A DAY NEEDED FOR PAIN AND INFLAMMATION. DO NOT EXCEED 16GM DAILY TO ANY AFFECTED JOINT OF LOWER EXTREMITIES. DO NOT EXCEED 8GM DAILY TO ANY AFFECTED JOINT OF UPPER EXTREMITES. DO NOT EXCEED TOTAL DOSE OF 32GM DAILY FOR ALL JOINTS. 100 Oct 31, 2018 [id number] Oct 06, 2018 ANAYELI KIRKPATRICK Luda Juan M BLAS [facility] DICLOFENAC NA 1% GEL,TOP APPLY 2 GRAMS A FFECTED AREA TWO TIMES A DAY NEEDED FOR PAIN AND INFLAMMATION. DO NOT EXCEED 16GM DAILY TO ANY AFFECTED JOINT OF LOWER EXTREMITIES. DO NOT EXCEED 8GM DAILY TO ANY AFFECTED JOINT OF UPPER EXTREMITES. DO NOT EXCEED TOTAL DOSE OF 32GM DAILY FOR ALL JOINTS. 100 Jan 17, 2019 [id number] Dec 20, 2018 PAMELA RAMSEY FLUTICASONE PROPIONATE 50MCG/SPRAY SOLN,NASAL,16GM Active INSTILL 1 SPRAY IN EACH NOSTRIL ONCE A DAY SHAKE GENTLY BEFORE USE! - MUST BE USED DIRECTED FOR 3 WEEKS TO PROVIDE BENEFIT. * NO EARLY REFILLS * 1UNIT = 30DAYS AT 4 PF/DAY OR 60DAYS AT 2PF/DAY 2 Dec 19, 2019 [id number] August 26, 2019 PAMELA RAMSEY KETOTIFEN 0.025% SOLN,OPH Active INSTILL 1 DROP IN BOTH EYES TWO TIMES A DAY FOR RELIEF OF ALLERGY SYMPTOMS IN EYE(S) Feb 01, 2020 [id number] September 04, 2019 [facility] LANCET,SOFTCLIX Active USE LANCET BIW FOR TESTING BL OOD GLUCOSE DIRECTED Sep 29, 2020 [id number] Sep 30, 2019 MAURICIO RANKIN LANCET,SOFTCLIX Discontinued USE LANCET BIW FO R TESTING BLOOD GLUCOSE DIRECTED Dec 19, 2019 [id number] Jun 06, 2019 PAMELA RAMSEY LANCET,SOFTCLIX Discontinued USE LANCET BIW FO R TESTING BLOOD GLUCOSE DIRECTED Jul 25, 2019 [id number] Nov 12, 2018 PAMELA RAMSEY LISINOPRIL 40MG TAB Non- VA TAKE ONE-HALF TABLET BY MOUTH EVERY MORNING Non-VA Documented by: PAMELA RAMSEY nted at: [facility] LORATADINE/PSEUDOEPHEDRINE TAB,SA Non-VA TAKE BY MOUTH No n-VA Documented by: JUAN LANG nted at: [facility] MAGNESIUM OXIDE 400MG TAB Non-VA TAKE [...] ACID (REPLACES ACIPHEX) 180 Dec 19, 2019 [id number] August 26, 2019 PAMELA RAMSEY POLYETHYLENE GLYCOL [...] Non-VA Documented by: KATHERINE MATT nted at: [facility] PREGABALIN 150MG CAP,ORAL Non-VA TAKE 1 CAPSULE BY MOUTH TWO TIMES A DAY Non-VA Docume nted by: PAMELA RAMSEY nted at: [facility] SEMAGLUTIDE INJ,SOLN Non -VA INJECT SUBCUTANEOUSLY EVERY WEEK Non-VA Documented by: ANAYELI KIRKPATRICK nted at: [facility] TERBINAFINE HCL 1% CREAM,TOP Active APPLY LIGHT LY TO AFFECTED AREA TWO TIMES A DAY FOR INFECTION 90 Sep 23, 2020 [id number] Sep 24, 2019 ADRIEL HERNANDEZ UREA 20% CREAM,TOP Active APPLY LIGHTLY (20%) TO AFFECTED AREA TWO TIMES A DAY NEEDED TO PROMOTE HEALING,RUB IN UNTIL COMPLETELY ABSORBED*FOR TOPICAL USE ONLY* APPLY TO BOTH FEET DIRECTED. 90 Sep 25, 2020 [id number] Sep 26, 2019 ADRIEL HERNANDEZ [facility] Problems (Conditions): All historical and current [...] Alcohol intake above recommended sensible limits Active 721141828 [facility] Allergic conjunctivitis Active 381926115 [facility]AW [facility] Bilateral senile combined form cataracts of eyes Active 99403105137 9108 ABILENENEDA [facility] Bilateral tinnitus Active [id number] CHASTITY JEAN [facility] Coronary arteriosclerosis Active 21697214 September 08, 2014 Entered By: PADMA LONG Comment: hx of ptca to RCA several yrs. agoSeptember 08, 2014 Entered By: PADMA LONG Comment: heart cath 09/01/14, neg. / previous stent to RCA,, [facility] KALA JONES [facility] Diabetes mellitus Active 50468209 PAMELA RAMSEY [facility] Disorder of pancreas Active 6609319 September 08, 2014 Entered By: PADMA LONG Comment: 2.5cm low density lseion in bodyMay 2014 Entered By: PADMA LONG Comment: question of communication with pancreatic ductMa2014 Entered By: PADMA LONG Comment: favored to be cystic pancreatic cancerSeptember 08, 2014 Entered By: PADMA LONG Comment: per abdominal CT 09/01/14, via abida menesestx PADMA LONG [facility] Dry eyes Active 334726714 [facility] Gastro-esophageal reflux disease without esophagitis ( SNOMED CT 913958374) Active 815108289 ALF GUEVARA [facility] History of malignant neoplasm of lung Active 989224662 CHAPO BARRETO [facility] Hyperlipidemia (SNOMED CT 71881000) Active 72767717 PAMELA RAMSEY [facility] Lung mass Active 718830231 September 08, 2014 E ntered By: PADMA [...] uncertain behavior of skin of eyelid Active 57438395 KATHERINE MATT [facility] Obesity Active 774608417 SONG BULLOCK [facility] Obstructive sleep apnea syndrome (SNOMED CT 96470827) Active 901563 015 PHILIPPE DOUGLASS [facility] Pancreatic cyst Active 68081582 JAYLENE GUEVARA [facility] Papilloma of right eyelid Active 991712193226653 NEDA SHAW [facility] Polyp of colon Active 82548346 Jan 23 16 Entered By: PADMA LONG Comment: c-scope 01/17/16, multiple benign colonic polypsJun 28, 2017 Entered By: PADMA LONG Comment: c-scope,06/25/17,[facility], three benign polyps- sigmoid colon, transverse colon,cecum. see path report cprs SHARRON TORRES [facility] Pulmonary emphysema Active 22479629 0 BRIANA [place] [facility] Sensorineural hearing loss, bilateral Active 561058545 CHASTITY JEAN [facility] [place] [facility] Snoring Active 21601939 SONG BULLOCK ARTUR Juan M [facility] Type 2 diabetes mellitus without complication Active 554172660 [facility]AW [facility] [place] [facility] Environmental Allergies (ICD-9-CM 477.9) Inactive 477.9 Dec 18, 2017 [facility] External hemorrhoids without mention of complication (ICD-9- CM 455.3) Inactive 455.3 Dec 18, 2017 [facility] Impotence of organic origin (ICD-9-CM 607.84) Inactive 607.84 Dec 18, 2017 [facility] LONG [facility] Screening for Lipoid disorders (ICD-9-CM V77.91) Inactive V77.91 Jan 18, 2007 PADMA LONG Juan [facility] Stye * (ICD-9-CM 373.11) Inactive 373.11 Dec 18, 201 8 Jan 18, 2007 Entered By: PADMA LONG Comment: bilat lower lids, chronic/recurrent PADMA LONG Juan M [facility] Tobacco Use Disorder, Continuous [...] the Encounter. The data comes from all [place] treatment facilities. Date/Time Pathology Report Provider Source [...] 11:11) Microscopic examination is performed. DIAGNOSIS: Specimen: [id number] Spec Type: SURGICAL Abdulkadir: 04/03/19 Rec: 04/03/19-1241 PATHOLOGIC DIAGNOSIS Skin lesion, right upper cheek, biopsy: 1. Seborrheic keratosis, not involving resection margins. 2. Solar elastosis. Skin lesion, right lower mid margin, biopsy: 1. Seborrheic keratosis, with tumor at tissue edge/margin, but with benign features. LL COPIES TO: KATHERINE MATT [facility] PATHOLOGIST CODES: 16795/2 at 1235 The gross and microscopic examinations and interpretation were performed at [facility] Department of Pathology, [address] [place] [address]. Slides and paraffin blocks are on file at [facility]. =--=--=--=--=--=--=--=--=--=--=--=--=--=--=--=--=--=--=--=--=--=--=--=--=--=-- Performing Laboratory: Surgical Pathology Report Performed By: [facility] [CLIA# [id number]] [address] [place] [id number] [address] [facility] 15 Encounter Notes: All associated encounter notes This section contains the clinical notes associated to the Encounter. Date/Time Encounter Note(s) Provider Source Mar 10, 2019 01:17 PM OPHTHALMOLOGY CONSULT: LOCAL TITLE: WI-OPHTHALMOLOGY/CONSULT (BP) STANDARD TITLE: OPHTHALMOLOGY CONSULT DATE OF NOTE: MAR 10, 2019@13:17 ENTRY DATE: MAR 10, 2019@13:17:46 AUTHOR: KATHERINE MATT EXP COSIGNER: URGENCY: STATUS: COMPLETED WI-OPHTHALMOLOGY/CONSULT () Has ADDENDA CONSULT EYELID LESION POH: SLOW [...] MEDICATION FOR BIOPSY. /gisell/ KATHERINE MATT Staff Press Service Reader Signed: 03/10/2019 13:50 Receipt Acknowledged By: 03/12/2019 11:53 /gisell/ BRO HUYNH Talasim * AWAITING SIGNATURE * NÉSTOR CHEN Gianna 03/11/2019 ADDENDUM STATUS: COMPLETED PT CALLED AND IS ON Effient 10 mg per day po. Added to non-VA medication list. /gisell/ KTAHERINE MATT Staff Press Service Reader Signed: 03/11/2019 09:36 KATHERINE MATT [facility] Mar 10, 2019 12:40 PM NURSING OUTPATIENT NOTE: LOCAL TITLE: NV-SPECIALTY PRE-APPT STANDARD TITLE: NURSING OUTPATIENT NOTE DATE [...] Gaspar Chief complaint: presents for Ophthalmology eval. states no concerns with vision at this time. states no changes since 01/31/19. ORIENTATION: alert ppt MOOD: good ACCUCHECK: n/a VISUAL ACUITY: Distance with correction: Right eye 20/20-2 PH: 20/ Left eye 20/20 PH: 20/ Both eyes 20/20 Near with correction: Right eye 20/20 Left eye 20/20 Both eyes 20/20 HAB RX: Right Eye: +1.75-0.79c446 Left Eye: +1.00-0.63f701 Add: 2.50 CHAIR SKILLS: Pupils were 5mm [...] Not at all /gisell/ ASHWINI VILLANUEVA Health Development Technical Lead-director investment banking Signed: 03/10/2019 12:49 ASHWINI VILLANUEVA [facility]
--- OUTSIDE RECORDS SUMMARY | 2019-12-02 13:12 | XMS REPORT | Encounter Summary ---
Author Author Department of [facility] HERBERTH kline Organization Department of [facility] Affai Address [address] [place] [address] Phone Unavailable Care Team Providers Care Remote Sensing Program Manager Name Role Phone MARYADRIEL PCP Unavailable Insurance Providers: All historical and current No Data Provided for This Section Selected Encounter This section includes the information on record at [place] for the Encounter. Date/Time Encounter Type Encounter Description Reason Provider Source Mar 19, 2019 09:17 AM Outpatient Encounter OPHTHALMOLOGY ICD-1 0-CM Z71.89 Other specified counseling with Provider Comments: Other specified Counseling NÉSTOR ZARATE [facility] IHE Encounter Template Text not used by [place] Assessments - Encounter Diagnoses This section includes the primary and secondary diag noses documented for the Encounter. Date/Time Primary/Secondary Diagnosis Diagnosis Name Provider Source Mar 19, 2019 09:18 AM PRIMARY Other specified counseling NÉSTOR SMITH [facility] Plan of Treatment: Future Appointments [...] nts. The data comes from all [facility]. Appointment Date/Time Appointment Type Appointment Facili ty Name Mar 21, 2019 09:15 AM AMBULATORY - NONE [facility] Mar 21, 2019 09:30 AM AMBULATORY - MEDICINE [facility] Mar 21, 2019 09:31 AM AMBULATORY - MEDICINE [facility] Mar 21, 2019 10:00 AM AM[facility]ULATORY - MEDICINE [facility] Mar 21, 2019 10:01 AM AMBULATORY - MEDICINE [facility] Mar 26, 2019 10:00 AM [facility] Apr 03, 2019 10:00 AM AMBULAT[facility] - SURGERY [facility] Apr 14, 2019 10:00 AM AMBULATORY - SURGERY [facility] Apr 28, 2019 11:00 AM AMBULATORY - NONE [facility] BLAS [facility] Jun 25, 2019 11:30 AM AMBULATORY - NONE [facility] Jun 25, 2019 01:15 PM AMBULATORY - MEDICINE [facility] Jul 23, 2019 11:00 AM AMBULATORY - NONE [facility] Jul 25, 2019 08:00 AM AMBULATORY - NONE [facility] Aug 07, 2019 10:30 AM AMBULATORY - MEDICINE [facility]UR BLAS [facility] Active, Pending, and Scheduled Orders [...] Encounter. The data comes from all [facility]. Test Date/Time Test Type Test Details Facility Name Apr 01, 2019 10:33 AM Consult Order [facility][id number] Cons Tram Driver's Choice [facility] Surgical Procedures: All associated to the encounter [...] 15 YRS OR MORE [facility] Tobacco Use History This section includes a history of the smoking, or tobacco -related health factors, that were collected on or before the date of the Encoun ter. The data comes from the [place] facility where the Encounter took place. Date/Time Smoking Status/Tobacco Use Comment [facility] Jun 26, 2018 02:13 PM [place]-TOBACCO QUIT 15 YRS OR MORE [facility] Jun 27, 2017 01:39 PM [...] the patient. The data comes from a [facility] treatment facilities. It does not list Allergies/ADRs that were removed or entered in error. Some allergies/ADRs may be reported in t Immunization section. Allergen Event Date Event Type Reaction(s) Severity Source [place] September 08, 2014 Propensity to adverse reactions to drug (diso rder) [facility] [place] September 08, 2014 Propensity to adverse reactions to drug (diso rder) [facility] Medications: VA dispensed (-15 months) and Non-VA Documented (Obtained Outside V A) Section Date Range: 1) prescriptions processed by a VA pharmacy in the last 15 m [facility], and 2) all medications [...] TEST BLOOD GLUCOSE 50 Dec 19, 2019 [id number] September 04, 2019 PAMELA RAMSEY ACCU-CHEK CHARLES PLUS (GLUCOSE) TEST STRIP Discontinued USE 1 STRIP FOR TESTING TWO TIMES PER WEEK - DIRECTED TO TEST BLOOD GLUCOSE 50 Jul 25, 2019 [id number] Nov 12, 2018 PAMELA RAMSEY ALBUTEROL SO4 90MCG/ACTUAT (CFC-F) INHL,ORAL,6.7GM Active INHALE 2 PUFFS BY ORAL INHALATION EVERY 4 HOURS NEEDED FOR BREATHING. SHAKE WELL. RINSE MOUTHPIECE FREQUENTLY TO PREVENT CLOGGING. USE NEEDED FOR SHORTNESS OF AIR/WHEEZING FOR BREATHING. SHAKE WELL. RINSE MOUTHPIECE FREQUENTLY TO PREVENT CLOGGING. USE NEEDED FOR SHORTNESS OF AIR/WHEEZING 1 Dec 19, 2019 [id number] September 04, 2019 PAMELA RAMSEY [facility] ALCOHOL PREP PAD Active USE 1 PAD ON SKIN BIW TO CLEAN AND DISINFECT THE SKIN 200 Sep 29, 2020 [id number] Sep 30, 2019 MAURICIO RANKIN [facility] ALCOHOL PREP PAD Discontinued USE 1 PAD ON SKIN BI W TO CLEAN AND DISINFECT THE SKIN 200 Dec 19, 2019 [id number] Jun 06, 2019 PAMELA RAMSEY [facility] ALCOHOL PREP PAD Discontinued USE 1 PAD ON SKIN BI W TO CLEAN AND DISINFECT THE SKIN 200 Jul 25, 2019 [id number] Nov 12, 2018 PAMELA RAMSEY [facility] ASCORBIC ACID 250MG TAB Non-VA TAKE ONE TABLET BY MOUTH ONCE A DAY Non-VA Documented by: SHANIQUA SCHMIDT nted at: [facility] ASPIRIN 25MG/DIPYRIDAMOLE 200MG CAP,SA Active T CHAPIN 1 CAPSULE BY MOUTH TWO TIMES A DAY - SWALLOW WHOLE. DO NOT CRUSH OR CHEW. FOR RECURRENT TIA/STROKE 180 Dec 19, 2019 [id number] Dec 20, 2018 PAMELA RAMSEY [facility] ASPIRIN 25MG/DIPYRIDAMOLE 200MG CAP,SA Discontinued T CHAPIN 1 CAPSULE BY MOUTH TWO TIMES A DAY - SWALLOW WHOLE. DO NOT CRUSH OR CHEW. FOR RECURRENT TIA/STROKE 180 Feb 06, 2019 [id number] Sep 28, 2018 ZACHARY GRECO ASPIRIN 81MG TAB,EC Non- VA TAKE ONE TABLET BY MOUTH ONCE A DAY Non-VA Documented by: PADAM LONG nted at: [facility] ATORVASTATIN CA 80MG TAB Active TAKE ONE TABLET BY MOUTH AT BEDTIME FOR CHOLESTEROL - REPORT ANY UNEXPLAINED MUSCLE PAIN/WEAKNESS TO YOUR PROVIDER 90 Dec 19, 2019 [id number] September 04, 2019 PAMELA RAMSEY ATORVASTATIN CA 80MG TAB Discontinued TAKE ONE TABLET BY MOUTH AT BEDTIME FOR CHOLESTEROL - REPORT ANY UNEXPLAINED MUSCLE PAIN/WEAKNESS TO YOUR PROVIDER 90 Dec 20, 2018 [id number] Nov 12, 2018 PAMELA RAMSEY BUDESONIDE 160MCG/FORMOTEROL FUM 4.5MCG/SPRAY INHL,ORAL,10.2 GM Active INHALE 2 PUFFS BY MOUTH TWO TIMES A DAY FOR BREATHING. SHAKE WELL. RINSE MOUTH AND SPIT AFTER EACH USE. 3 Apr 24, 2020 [id number] August 22, 2019 [facility] CALCIUM/VITAMIN D TAB No n-VA TAKE BY MOUTH ONCE A DAY Non-V A Documented by: PADMA LONG nted at: [facility] CARBOXYMETHYLCELLULOSE NA 0.5% SOLN,OPH Active INSTILL ONE DROP IN BOTH EYES FOUR TIMES A DAY FOR DRY EYES 15 Feb 01, 2020 [id number] September 03 0 NEDA SHAW [facility] DICLOFENAC NA 1% GEL,TOP Discontinued APPLY 2 GRAMS A FFECTED AREA TWO TIMES A DAY NEEDED FOR PAIN AND INFLAMMATION. DO NOT EXCEED 16GM DAILY TO ANY AFFECTED JOINT OF LOWER EXTREMITIES. DO NOT EXCEED 8GM DAILY TO ANY AFFECTED JOINT OF UPPER EXTREMITES. DO NOT EXCEED TOTAL DOSE OF 32GM DAILY FOR ALL JOINTS. 100 Oct 31, 2018 [id number] Oct 06, 2018 ANAYELI KIRKPATRICK [facility] DICLOFENAC NA 1% GEL,TOP APPLY 2 GRAMS A FFECTED AREA TWO TIMES A DAY NEEDED FOR PAIN AND INFLAMMATION. DO NOT EXCEED 16GM DAILY TO ANY AFFECTED JOINT OF LOWER EXTREMITIES. DO NOT EXCEED 8GM DAILY TO ANY AFFECTED JOINT OF UPPER EXTREMITES. DO NOT EXCEED TOTAL DOSE OF 32GM DAILY FOR ALL JOINTS. 100 Jan 17, 2019 [id number] Dec 20, 2018 PAMELA RAMSEY FLUTICASONE PROPIONATE 50MCG/SPRAY SOLN,NASAL,16GM Active INSTILL 1 SPRAY IN EACH NOSTRIL ONCE A DAY SHAKE GENTLY BEFORE USE! - MUST BE USED DIRECTED FOR 3 WEEKS TO PROVIDE BENEFIT. * NO EARLY REFILLS * 1UNIT = 30DAYS AT 4 PF/DAY OR 60DAYS AT 2PF/DAY 2 Dec 19, 2019 [id number] August 26, 2019 PAMELA RAMSEY [facility] KETOTIFEN 0.025% SOLN,OPH Active INSTILL 1 DROP IN BOTH EYES TWO TIMES A DAY FOR RELIEF OF ALLERGY SYMPTOMS IN EYE(S) Feb 01, 2020 [id number] September 04, 2019 COLINNEDA J [facility] LANCET,SOFTCLIX Active USE LANCET BIW FOR TESTING BL OOD GLUCOSE DIRECTED 100 Sep 29, 2020 [id number] Sep 30, 2019 MAURICIO RANKIN [facility] LANCET,SOFTCLIX Discontinued USE LANCET BIW FO R TESTING BLOOD GLUCOSE DIRECTED 100 Dec 19, 2019 [id number] Jun 06, 2019 PAMELA RAMSEY [facility] LANCET,SOFTCLIX Discontinued USE LANCET BIW FO R TESTING BLOOD GLUCOSE DIRECTED Jul 25, 2019 [id number] Nov 12, 2018 PAMELA RAMSEY LISINOPRIL 40MG TAB Non- [place] TAKE ONE-HALF TABLET BY MOUTH EVERY MORNING Non-VA Documented by: PAMELA RAMSEY nted at: [facility] LORATADINE/PSEUDOEPHEDRINE TAB,SA Non-VA TAKE BY MOUTH No n-VA Documented by: JUAN LANG nted at: [facility] MAGNESIUM OXIDE 400MG TAB Non-VA [...] ACID (REPLACES ACIPHEX) 180 Dec 19, 2019 [id number] August 26, 2019 PAMELA RAMSEY POLYETHYLENE GLYCOL [...] Documented by: KATHERINE HARDWICK Docume nted at: [facility] PREGABALIN 150MG CAP,ORAL Non-VA TAKE 1 CAPSULE BY MOUTH TWO TIMES A DAY Non-VA Docume nted by: PAMELA RAMSEY Docume nted at: [facility] SEMAGLUTIDE INJ,SOLN Non -VA INJECT SUBCUTANEOUSLY EVERY WEEK Non-VA Documented by: ANAYELI KIRKPATRICK Docume nted at: [facility] TERBINAFINE HCL 1% CREAM,TOP Active APPLY LIGHT LY TO AFFECTED AREA TWO TIMES A DAY FOR INFECTION Sep 23, 2020 [id number] Sep 24, 2019 ADRIEL HERNANDEZ UREA 20% CREAM,TOP Active APPLY LIGHTLY (20%) TO AFFECTED AREA TWO TIMES A DAY NEEDED TO PROMOTE HEALING,RUB IN UNTIL COMPLETELY ABSORBED*FOR TOPICAL USE ONLY* APPLY TO BOTH FEET DIRECTED. Sep 25, 2020 [id number] Sep 26, 2019 ADRIEL HERNANDEZ Problems (Conditions): [...] Alcohol intake above recommended sensible limits Active 912126455 PADMA LONG [facility] Allergic conjunctivitis Active 681264785 MILTONNEDA [facility] Bilateral senile combined form cataracts of eyes Active 04751093105 9108 MILTONNEDA [facility] Bilateral tinnitus Active [id number] CHASTITY JEAN [facility] Coronary arteriosclerosis Active 53887384 September 08, 2014 Entered By: PADMA LONG Comment: hx of ptca to RCA several yrs. agoSeptember 08, 2014 Entered By: PADMA LONG Comment: heart cath 09/01/14, neg. / previous stent to RCA,, via abida meneses ks HATCHER, JENNEY R ROBERT [facility] Diabetes mellitus Active 82109388 PAMELA RAMSEY [facility] Disorder of pancreas Active 7482729 September 08, 2014 Entered By: PADMA LONG Comment: 2.5cm low density lseion in bodyMay 2014 Entered By: PADMA LONG Comment: question of communication with pancreatic ductMay 2014 Entered By: PADMA LONG Comment: favored to be cystic pancreatic cancerMay 2014 Entered By: PADMA LONG Comment: per abdominal CT 09/01/14, via abida meneses ks FRAZIER, JAY J [facility] Dry eyes Active 927136625 NEDA SHAW Juan M [facility] Gastro-esophageal reflux disease without esophagitis ( SNOMED CT 951361132) Active 353196199 ALF GUEVARA [facility] History of malignant neoplasm of lung Active 779128145 CHAPO BARRETO [facility] Hyperlipidemia (SNOMED CT 25743904) Active 59668671 PAMELA RAMSEY [facility] Lung mass Active 532498798 September 08, 2014 E ntered By: PADMA [...] uncertain behavior of skin of eyelid Active 18659669 KATHERINE HARDWICK [facility] Obesity Active 161969027 SONG BULLOCK [facility] Obstructive sleep apnea syndrome (SNOMED CT 65579314) Active 093492 015 PHILIPPE DOUGLASS [facility] Pancreatic cyst Active 58385690 JAYLENE GUEVARA [facility] Papilloma of right eyelid Active [id number] NEDA SHAW [facility] Polyp of colon Active 13790916 Jan 23 Entered By: PADMA LONG Comment: c-scope 01/17/16, multiple benign colonic polypsJun 28, 2017 Entered By: PADMA LONG Comment: c-scope,06/25/17,[facility], three benign polyps- sigmoid colon, transverse colon,cecum. see path report cprs SHARRON TORRES [facility] Pulmonary emphysema Active 40536023 0 BRIANA GAVIN [facility] Sensorineural hearing loss, bilateral Active 656845155 CHASTITY JEAN [facility] Snoring Active 04294437 SONG BULLOCK [facility] Type 2 diabetes mellitus without complication Active 033731336 COLINNEDA [facility] Environmental Allergies (ICD-9-CM [...] Inactive V77.91 Jan 18, 2007 [facility] Stye * (ICD-9-CM 373.11) Inactive 373.11 Dec 18, 201 8 Jan 18, 2007 Entered By: PADMA LONG Comment: bilat lower lids, chronic/recurrent [facility] Tobacco Use Disorder, Continuous Inactive 305.1 Dec 18, 2017 Jan 18, 2007 Entered By: PADMA LONG Comment: one ppd PADMA LONG [facility] Radiology Reports: +/- 30 days [...] The data comes from all [facility] facilities. Date/Time Pathology Report Provider Source Apr [...] 11:11) Microscopic examination is performed. DIAGNOSIS: Specimen: [id number] Spec Type: SURGICAL Abdulkadir: 04/03/19 Rec: 04/03/19-1241 PATHOLOGIC DIAGNOSIS Skin lesion, right upper cheek, biopsy: 1. Seborrheic keratosis, not involving resection margins. 2. Solar elastosis. Skin lesion, right lower mid margin, biopsy: 1. Seborrheic keratosis, with tumor at tissue edge/margin, but with benign features. LL COPIES TO: KATHERINE HARDWICK [facility] PATHOLOGIST CODES: 88522/2 at 1235 The gross and microscopic examinations and interpretation were performed at [facility] Department of Pathology, [address] [place] [address]. Slides and paraffin blocks are on file at [facility]. =--=--=--=--=--=--=--=--=--=--=--=--=--=--=--=--=--=--=--=--=--=--=--=--=--=-- Performing Laboratory: Surgical Pathology Report Performed By: [facility] [CLIA# [id number]] [address] [place] [id number] [facility] [facility] 15 Encounter Notes: All associated encounter notes This section contains the clinical notes associated to the Encounter. Date/Time Encounter Note(s) Provider Source Mar 19, 2019 09:18 AM PROCEDURE NOTE: [facility] STANDARD TITLE: PROCEDURE NOTE DATE OF NOTE: MAR 19, 2019@09:18 ENTRY DATE: MAR 19, 2019@09:19:02 AUTHOR: NÉSTOR ZARATE EXP COSIGNER: URGENCY: STATUS: COMPLETED [facility] [address], [address] This letter contains your preoperative instructions. You are scheduled for your procedure with Dr. Hardwick. Your Procedure Date is: March @ 1000 Your Arrival time is: 0930 *You are to arrive at the [facility] on the 2nd floor of [place] [address] at the requested time above. *Your procedure [...] please call the eye clinic @ x [phone]. Sincerely, Néstor Zarate RN [facility] [phone] [id number] [facility] // NÉSTOR ZARATE RN Signed: 03/19/2019 09:19 NÉSTOR ZARATE [facility] Mar 19, 2019 09:17 AM PROCEDURE NOTE: LOCAL TITLE: [place]-AMBULATORY PROCEDURE SCHEDULING STANDARD TITLE: PROCEDURE NOTE DATE OF NOTE: MAR 19, 2019@09:17 ENTRY DATE: MAR 19, 2019@09:17:56 AUTHOR: NÉTSOR ZARATE EXP COSIGNER: URGENCY: STATUS: COMPLETED Patient and provider agreed to procedure date as scheduled below: Surgery: shave biopsy papilloma RLL margin and Excisional biopsy right upper cheek/eyelid Surgeon: Dr. Hardwick Surgery Date: 04/03/19 @ 1000 Arrival Time: 0930 in the [facility] Room 205, 2nd floor [place] [address] Appt. and surgery dates and times were [...] Néstor Zarate RN [facility] [phone]. [phone] Artur CARRASQUILLO /gisell/ NÉSTOR ZARATE RN Signed: 03/19/2019 09:18 NÉSTOR ZARATE [facility]
--- OUTSIDE RECORDS SUMMARY | 2019-12-02 13:12 | XMS REPORT | Encounter Summary ---
Author Author [facility] Organization Department of [facility] Address [address] [place] [address] Phone Unavailable Care Team Providers Care Environmental Coordinator Name Role Phone ADRIEL HERNANDEZ PCP Unavailable [...] Comments: Obstructive sleep apnea syndrome (SNOMED CT [id number]) PHILIPPE DOUGLASS [facility] IHE Encounter Template Text not used by [place] Assessments - Encounter Diagnoses This section includes the primary and secondary diag noses documented for the Encounter. Date/Time Primary/Secondary Diagnosis Diagnosis Name Provider Source Mar 21, 2019 10:02 AM PRIMARY Obstructive sleep apnea (a dult) (pediatric) DELMERKIMBERLY [facility] Plan of Treatment: [...] appointme nts. The data comes from all [facility]. Appointment Date/Time Appointment Type Appointment Facili ty Name Mar 26, 2019 10:00 AM AMBULATORY - NONE [facility] Apr 03, 2019 10:00 AM AMBULATORY - SURGERY ARTUR BL[facility] Apr 14, 2019 10:00 AM AMBULATORY - SURGERY [facility] Apr 28, 2019 11:00 AM AMBULATORY - NONE ARTUR [facility] Jun 25, 2019 11:30 AM AMBULATORY - NONE [facility] Jun 25, 2019 01:15 PM AMBULATORY - MEDICINE ARTUR Shu BLAS [facility] Jul 23, 2019 11:00 AM AMBULATORY - NONE [facility] Jul 25, 2019 08:00 AM AMBULATORY - NONE [facility] BL[facility] Aug 07, 2019 10:30 AM AMBULATORY - MEDICINE ARTUR Shu LEVIMila Arora [facility] Active, Pending, and Scheduled [...] 2019 10:33 AM Consult Order [facility] [id number] Cons Scientific Glass Blower's Choice [facility] Surgical Procedures: All associated to the encounter No Data Provided for This Section Lab Results: +/- 30 days of the encounter This section includes the Chemistry and Hematology Lab R esults on record with [place] for the patient. Radiology Reports and Pathology Report s are provided separately, in subsequent sections. Lab Results This section contains the Chemistry/Hematology Results usha t were resulted 30 days before or 30 days after the date of the Encounter. Date/Time Source Result Type Result - Unit Interpretation Reference Range Comment Mar 21, 2019 08:55 AM [facility] HEMOGLOBIN A1C Specimen Type: BLOOD No [...] Encoun ter. The data comes from the [place] facility where the Encounter took place. Date/Time Smoking Status/Tobacco Use Comment [facility] it Nov 23, 2017 09:51 [...] drug (diso rder) [facility] 15 PLAVIX September 08, 2014 Propensity to adverse reactions to drug (diso rder) [facility] 15 Medications: VA dispensed (-15 months) and Non-VA Documented (Obtained Outside V A) Section Date Range: 1) prescriptions processed by a VA pharmacy in the last 15 m [facility], and 2) all medications recorded in [...] may be a prescription from either the [place] or other providers that was filled outside [...] TEST BLOOD GLUCOSE 50 Dec 19, 2019 [id number] September 04, 2019 PAMELA RAMSEY ACCU-CHEK CHARLES PLUS (GLUCOSE) TEST STRIP Discontinued USE 1 STRIP FOR TESTING TWO TIMES PER WEEK - DIRECTED TO TEST BLOOD GLUCOSE 50 Jul 25, 2019 [id number] Nov 12, 2018 PAMELA RAMSEY ALBUTEROL SO4 90MCG/ACTUAT (CFC-F) INHL,ORAL,6.7GM Active INHALE 2 PUFFS BY ORAL INHALATION EVERY 4 HOURS NEEDED FOR BREATHING. SHAKE WELL. RINSE MOUTHPIECE FREQUENTLY TO PREVENT CLOGGING. USE NEEDED FOR SHORTNESS OF AIR/WHEEZING FOR BREATHING. SHAKE WELL. RINSE MOUTHPIECE FREQUENTLY TO PREVENT CLOGGING. USE NEEDED FOR SHORTNESS OF AIR/WHEEZING 1 Dec 19, 2019 [id number] September 04, 2019 PAMELA RAMSEY ALCOHOL PREP PAD Active USE 1 PAD ON SKIN BIW TO CLEAN AND DISINFECT THE SKIN 200 Sep 29, 2020 [id number] Sep 30, 2019 MAURICIO RANKIN [facility] ALCOHOL PREP PAD Discontinued USE 1 PAD ON SKIN BI W TO CLEAN AND DISINFECT THE SKIN 200 Dec 19, 2019 [id number] Jun 06, 2019 PAMELA RAMSEY [facility] ALCOHOL PREP PAD Discontinued USE 1 PAD ON SKIN BI W TO CLEAN AND DISINFECT THE SKIN 200 Jul 25, 2019 [id number] Nov 12, 2018 PAMELA RAMSEY [facility] ASCORBIC ACID 250MG TAB Non-VA TAKE ONE TABLET BY MOUTH ONCE A DAY Non-VA Documented by: SHANIQUA SCHMIDT nted at: [facility] ASPIRIN 25MG/DIPYRIDAMOLE 200MG CAP,SA Active T CHAPIN 1 CAPSULE BY MOUTH TWO TIMES A DAY - SWALLOW WHOLE. DO NOT CRUSH OR CHEW. FOR RECURRENT TIA/STROKE 180 Dec 19, 2019 [id number] Dec 20, 2018 PAMELA RAMSEY [facility] ASPIRIN 25MG/DIPYRIDAMOLE 200MG CAP,SA Discontinued T CHAPIN 1 CAPSULE BY MOUTH TWO TIMES A DAY - SWALLOW WHOLE. DO NOT CRUSH OR CHEW. FOR RECURRENT TIA/STROKE 180 Feb 06, 2019 [id number] Sep 28, 2018 ZACHARY GRECO [facility] ASPIRIN 81MG TAB,EC Non- VA TAKE ONE TABLET BY MOUTH ONCE A DAY Non-VA Documented by: PADMA LONG nted at: [facility] ATORVASTATIN CA 80MG TAB Active TAKE ONE TABLET BY MOUTH AT BEDTIME FOR CHOLESTEROL - REPORT ANY UNEXPLAINED MUSCLE PAIN/WEAKNESS TO YOUR PROVIDER 90 Dec 19, 2019 [id number] September 04, 2019 PAMELA RAMSEY ATORVASTATIN CA 80MG TAB Discontinued TAKE ONE TABLET BY MOUTH AT BEDTIME FOR CHOLESTEROL - REPORT ANY UNEXPLAINED MUSCLE PAIN/WEAKNESS TO YOUR PROVIDER 90 Dec 20, 2018 [id number] Nov 12, 2018 PAMELA RAMSEY [facility] BUDESONIDE 160MCG/FORMOTEROL FUM 4.5MCG/SPRAY INHL,ORAL,10.2 GM Active INHALE 2 PUFFS BY MOUTH TWO TIMES A DAY FOR BREATHING. SHAKE WELL. RINSE MOUTH AND SPIT AFTER EACH USE. 3 Apr 24, 2020 [id number] August 22, 2019 LISSA OATES [facility] CALCIUM/VITAMIN D TAB No n-VA TAKE BY MOUTH ONCE A DAY Non-V A Documented by: PADMA LONG nted at: [facility] CARBOXYMETHYLCELLULOSE NA 0.5% SOLN,OPH Active INSTILL ONE DROP IN BOTH EYES FOUR TIMES A DAY FOR DRY EYES 15 Feb 01, 2020 [id number] [address] [facility] DICLOFENAC [...] FOR ALL JOINTS. 100 Oct 31, 2018 [id number] Oct 06, 2018 ANAYELI KIRKPATRICK [facility] DICLOFENAC NA 1% GEL,TOP APPLY 2 GRAMS A FFECTED AREA TWO TIMES A DAY NEEDED FOR PAIN AND INFLAMMATION. DO NOT EXCEED 16GM DAILY TO ANY AFFECTED JOINT OF LOWER EXTREMITIES. DO NOT EXCEED 8GM DAILY TO ANY AFFECTED JOINT OF UPPER EXTREMITES. DO NOT EXCEED TOTAL DOSE OF 32GM DAILY FOR ALL JOINTS. 100 Jan 17, 2019 [id number] Dec 20, 2018 PAMELA RAMSEY FLUTICASONE PROPIONATE 50MCG/SPRAY SOLN,NASAL,16GM Active INSTILL 1 SPRAY IN EACH NOSTRIL ONCE A DAY SHAKE GENTLY BEFORE USE! - MUST BE USED DIRECTED FOR 3 WEEKS TO PROVIDE BENEFIT. * NO EARLY REFILLS * 1UNIT = 30DAYS AT 4 PF/DAY OR 60DAYS AT 2PF/DAY 2 Dec 19, 2019 [id number] August 26, 2019 PAMELA RAMSEY KETOTIFEN 0.025% SOLN,OPH Active INSTILL 1 DROP IN BOTH EYES TWO TIMES A DAY FOR RELIEF OF ALLERGY SYMPTOMS IN EYE(S) 10 Feb 01, 2020 [id number] September 04, 2019 [facility] LANCET,SOFTCLIX Active USE LANCET BIW FOR TESTING BL OOD GLUCOSE DIRECTED 100 Sep 29, 2020 [id number] Sep 30, 2019 MAURICIO RANKIN [facility] LANCET,SOFTCLIX Discontinued USE LANCET BIW FO R TESTING BLOOD GLUCOSE DIRECTED 100 Dec 19, 2019 [id number] Jun 06, 2019 PAMELA RAMSEY LANCET,SOFTCLIX Discontinued USE LANCET BIW FO R TESTING BLOOD GLUCOSE DIRECTED Jul 25, 2019 [id number] Nov 12, 2018 PAMELA RAMSEY LISINOPRIL 40MG [...] ACID (REPLACES ACIPHEX) 180 Dec 19, 2019 [id number] August 26, 2019 PAMELA RAMSEY POLYETHYLENE GLYCOL [...] DAY FOR INFECTION 90 Sep 23, 2020 [id number] Sep 24, 2019 ADRIEL HERNANDEZ UREA 20% CREAM,TOP Active APPLY LIGHTLY (20%) TO AFFECTED AREA TWO TIMES A DAY NEEDED TO PROMOTE HEALING,RUB IN UNTIL COMPLETELY ABSORBED*FOR TOPICAL USE ONLY* APPLY TO BOTH FEET DIRECTED. 90 Sep 25, 2020 [id number] Sep 26, 2019 ADRIEL HERNANDEZ Problems (Conditions): [...] Alcohol intake above recommended sensible limits Active 058339369 PADMA LONG [facility] Allergic conjunctivitis Active 944881145 ROSEMONTLISSETTEA Luda [facility] Bilateral senile combined form cataracts of eyes Active 36570123851 9108 [facility]uda [facility] Bilateral tinnitus Active [id number] CHASTITY JEAN [facility] Coronary arteriosclerosis Active 66328701 September 08, 2014 Entered By: PADMA LONG Comment: hx of ptca to RCA several yrs. 2014 Entered By: PADMA LONG Comment: heart cath 09/01/14, neg. 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 Entered By: PADMA LONG Comment: per abdominal CT 09/01/14, [place] PADMA LONG [facility] Dry eyes Active 047093211 [facility] SHAW [facility] Gastro-esophageal reflux disease without esophagitis ( SNOMED CT 107072417) Active 053181602 [facility]F [facility] History of malignant neoplasm of lung Active 432558293 CHAPO BARRETO Juan M [facility] Hyperlipidemia (SNOMED CT 61471440) Active 71174902 PAMELA RAMSEY [facility] Lung mass Active 756840204 September 08, 2014 E ntered By: PADMA LONG Comment: 4.5 cm mass, post. segment right upper lobe.September 08, 2014 Entered By: PADMA LONG Comment: mild adenopathy in mediastinum and bilat. hilaMay 2014 Entered By: PADMA LONG Comment: most likely related to lung cancerMay 2014 Entered By: PADMA LONG Comment: per ct angio of chest with contrast 09/01/14,via [place]eses[place]Jun 2014 Entered By: PADMA LONG Comment: per path report- mod. differentiated bronchogenic adenoca. 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 Active 84813232 KATHERINE MATT [facility] Obesity Active 088973576 [place] Juan M [facility] Obstructive sleep apnea syndrome (SNOMED CT 40240817) Active 827757 015 PHILIPPE DOUGLASS [facility] Pancreatic cyst Active 59782503 JAYLENE GUEVARA [facility] Papilloma of right eyelid Active [id number] [facility] Polyp of colon Active 38811401 Jan 23 Entered By: PADMA LONG Comment: c-scope 01/17/16, multiple benign colonic polypsJun 28, 2017 Entered By: PADMA LONG Comment: c-scope,06/25/17,[facility], three benign polyps- sigmoid colon, transverse colon,cecum. see path report cprs SHARRON TORRES [facility] Pulmonary emphysema Active 51060136 0 BRIANA LESLYE [facility] Sensorineural hearing loss, bilateral Active 790923906 SLEDGCHASTITY Zaragoza Nicol [facility] Snoring Active 39755724 SONG [place]ULLOCK [facility] Type 2 diabetes mellitus without complication Active 042263089 FACUNDO SHAWICINicol Lares [facility] Environmental Allergies (ICD-9-CM [...] data comes from all [facility] facilities. Date/Time Pathology Report Provider Source Apr [...] 11:11) Microscopic examination is performed. DIAGNOSIS: Specimen: [id number] Spec Type: SURGICAL Abdulkadir: 04/03/19 Rec: 04/03/19-1241 PATHOLOGIC DIAGNOSIS Skin lesion, right upper cheek, biopsy: 1. Seborrheic keratosis, not involving resection margins. 2. Solar elastosis. Skin lesion, right lower mid margin, biopsy: 1. Seborrheic keratosis, with tumor at tissue edge/margin, but with benign features. LL COPIES TO: [facility] PATHOLOGIST CODES: 18281/2 at 1239 The gross and microscopic examinations and interpretation were performed at [facility] Department of Pathology, [address] [place] [id number]. Slides and paraffin blocks are on file at [facility]. =--=--=--=--=--=--=--=--=--=--=--=--=--=--=--=--=--=--=--=--=--=--=--=--=--=-- Performing Laboratory: Surgical Pathology Report Performed By: [facility] [CLIA# [id number]] [address] [place] [id number] [address] [place] [address] Encounter Notes: All associated encounter notes This section contains the clinical notes associated to the Encounter. Date/Time Encounter Note(s) Provider Source Mar 21, 2019 09:40 AM PULMONARY PROCEDURE NOTE: [facility] TITLE: PULMONARY PROCEDURE NOTE DATE OF NOTE: MAR 21, 2019@09:40 ENTRY DATE: MAR 21, 2019@09:40:43 AUTHOR: PHILIPPE DOUGLASS COSIGNER: URGENCY: STATUS: COMPLETED SLEEP CLINIC This is a 64 year old male [place] known to our [facility] sleep clinic for moderate obstructive sleep apnea, last seen in clinics on 03/21/2018. requested his follow up appointment to be done via telemedicine. [place] reports usage of his CPAP machine most [...] pressure set and confirmed with manometer @ 03csc01 REVIEW OF SYSTEMS: Denies chest pain, shortness [...] ed with manometer @ 10 cmh20. - [place] has contact number for respira vin therapist, if problems arise and/or additional supplies. DISPOSITION: [place] was provided education on how to contact the Sleep Clinic and the process for ordering supplies was also discussed. [place] was discharged to home and was encouraged [...] DOUGLASS APRN Signed: 03/21/2019 10:02 PHILIPPE DOUGLASS [facility]
--- OUTSIDE RECORDS SUMMARY | 2019-12-02 13:13 | XMS REPORT | Encounter Summary ---
Author Author Department [facility] Address [address] [place] [address] Phone Unavailable Care Team Providers Care Mortgage Loan Coordinator Name Role Phone ADRIEL HERNANDEZ PCP [...] Intervertebral Disc Degeneration, Lumbar Region [place] [facility] IHE Encounter Template Text not used by [place] Assessments - Encounter Diagnoses This section includes the primary and secondary diag noses documented for the Encounter. Date/Time Primary/Secondary Diagnosis Diagnosis Name Provider Source Mar 10, 2019 02:57 PM PRIMARY Other intervertebr al disc degeneration, lumbar region ISIAH UPTON [facility] Plan of Treatment: Future Appointments (+ 6 [...] appointme nts. The data comes from all [facility]. Appointment Date/Time Appointment Type Appointment Facili ty Name Mar 21, 2019 09:15 AM AMBULATORY - NONE [facility] Mar 21, 2019 09:30 AM AMBULATORY - MEDICINE [facility] Mar 21, 2019 09:31 AM AMBULATORY - MEDICINE [facility] Mar 21, 2019 10:00 AM AMBULATORY - MEDICINE [facility] Mar 21, 2019 10:01 AM AMBULATORY - MEDICINE [facility] Mar 26, 2019 10:00 AM AMBULATORY - NONE [facility] Apr 03, 2019 10:00 AM AMBULATORY - SURGERY [facility] Apr 14, 2019 10:00 AM [facility]ULATORY - SURGERY [facility] Apr 28, 2019 11:00 AM AMBULATORY - NONE [facility] Jun 25, 2019 11:30 AM AMBULATORY - NONE [facility] Jun 25, 2019 01:15 PM AMBULATORY - MEDICINE [facility] Jul 23, 2019 11:00 AM AMBULATORY - NONE [facility] Jul 25, 2019 08:00 AM AMBULATORY - NONE [facility] Aug 07, 2019 10:30 AM AMBULATORY - MEDICINE [facility] Active, Pending, and Scheduled Orders This section [...] the Encounter. The data comes from all [facility]. Test Date/Time Test Type Test Details Facility Name Apr 01, 2019 10:33 AM Consult Order [facility] [id number] Cons Manager Online's Choice [facility] Surgical Procedures: [...] and tobacco- related health factors from the [place] facility where the Encounter took place. Current Smoking Status This section includes the most current smoking, or tobacco -related health factor, from the [place] facility where the Encounter took place. Date/Time Current Smoking Status Comment [facility] Jun 26, 2018 02:13 PM [place]-TOBACCO QUIT 15 YRS OR MORE [facility] Tobacco Use History This section includes a history of the smoking, or tobacco -related health factors, that were collected on or before the date of the Encoun ter. The data comes from the [place] facility where the Encounter took place. Date/Time Smoking Status/Tobacco Use Comment [facility] Jun 26, 2018 02:13 PM [place]-TOBACCO QUIT 15 YRS OR MORE [facility] Jun 27, 2017 01:39 PM NON-TOBACCO USER [...] the patient. The data comes from a [facility] treatment facilities. It does not list Allergies/ADRs that were removed or entered in error. Some allergies/ADRs may be reported in t he Immunization section. Allergen Event Date Event Type Reaction(s) Severity Source BR[place] September 08, 2014 Propensity to adverse reactions to drug (diso rder) [facility] [place] September 08, 2014 Propensity to adverse reactions to drug (diso rder) [facility] [...] TEST BLOOD GLUCOSE 50 Dec 19, 2019 [id number] September 04, 2019 PAMELA RAMSEY ACCU-CHEK CHARLES PLUS (GLUCOSE) TEST STRIP Discontinued USE 1 STRIP FOR TESTING TWO TIMES PER WEEK - DIRECTED TO TEST BLOOD GLUCOSE 50 Jul 25, 2019 [id number] Nov 12, 2018 PAMELA RAMSEY ALBUTEROL SO4 90MCG/ACTUAT (CFC-F) INHL,ORAL,6.7GM Active INHALE 2 PUFFS BY ORAL INHALATION EVERY 4 HOURS NEEDED FOR BREATHING. SHAKE WELL. RINSE MOUTHPIECE FREQUENTLY TO PREVENT CLOGGING. USE NEEDED FOR SHORTNESS OF AIR/WHEEZING FOR BREATHING. SHAKE WELL. RINSE MOUTHPIECE FREQUENTLY TO PREVENT CLOGGING. USE NEEDED FOR SHORTNESS OF AIR/WHEEZING 1 Dec 19, 2019 [id number] September 04, 2019 PAMELA RAMSEY ALCOHOL PREP PAD Active USE 1 PAD ON SKIN BIW TO CLEAN AND DISINFECT THE SKIN 200 Sep 29, 2020 [id number] Sep 30, 2019 MAURICIO RANKIN [facility] ALCOHOL PREP PAD Discontinued USE 1 PAD ON SKIN BI W TO CLEAN AND DISINFECT THE SKIN 200 Dec 19, 2019 [id number] Jun 06, 2019 PAMELA RAMSEY ALCOHOL PREP PAD Discontinued USE 1 PAD ON SKIN BI W TO CLEAN AND DISINFECT THE SKIN 200 Jul 25, 2019 [id number] Nov 12, 2018 PAMELA RAMSEY ASCORBIC ACID 250MG TAB Non-VA TAKE ONE TABLET BY MOUTH ONCE A DAY Non-VA Documented by: SHANIQUA SCHMIDT nted at: [facility] ASPIRIN 25MG/DIPYRIDAMOLE 200MG CAP,SA Active T CHAPIN 1 CAPSULE BY MOUTH TWO TIMES A DAY - SWALLOW WHOLE. DO NOT CRUSH OR CHEW. FOR RECURRENT TIA/STROKE 180 Dec 19, 2019 [id number] Dec 20, 2018 PAMELA RAMSEY ASPIRIN 25MG/DIPYRIDAMOLE 200MG CAP,SA Discontinued T CHAPIN 1 CAPSULE BY MOUTH TWO TIMES A DAY - SWALLOW WHOLE. DO NOT CRUSH OR CHEW. FOR RECURRENT TIA/STROKE 180 Feb 06, 2019 [id number] Sep 28, 2018 ZACHARY GRECO ASPIRIN 81MG TAB,EC Non- VA TAKE ONE TABLET BY MOUTH ONCE A DAY Non-VA Documented by: PADMA LONG nted at: [facility] ATORVASTATIN CA 80MG TAB Active TAKE ONE TABLET BY MOUTH AT BEDTIME FOR CHOLESTEROL - REPORT ANY UNEXPLAINED MUSCLE PAIN/WEAKNESS TO YOUR PROVIDER 90 Dec 19, 2019 [id number] September 04, 2019 PAMELA RAMSEY ATORVASTATIN CA 80MG TAB Discontinued TAKE ONE TABLET BY MOUTH AT BEDTIME FOR CHOLESTEROL - REPORT ANY UNEXPLAINED MUSCLE PAIN/WEAKNESS TO YOUR PROVIDER 90 Dec 20, 2018 [id number] Nov 12, 2018 PAMELA RAMSEY BUDESONIDE 160MCG/FORMOTEROL FUM 4.5MCG/SPRAY INHL,ORAL,10.2 GM Active INHALE 2 PUFFS BY MOUTH TWO TIMES A DAY FOR BREATHING. SHAKE WELL. RINSE MOUTH AND SPIT AFTER EACH USE. 3 Apr 24, 2020 [id number] August 22, 2019 LISSA OATES [facility] CALCIUM/VITAMIN D TAB No n-VA TAKE BY MOUTH ONCE A DAY Non-V A Documented by: PADMA LONG nted at: [facility] CARBOXYMETHYLCELLULOSE NA 0.5% SOLN,OPH Active INSTILL ONE DROP IN BOTH EYES FOUR TIMES A DAY FOR DRY EYES 15 Feb 01, 2020 [id number] September 03 0 [facility] [...] FOR ALL JOINTS. 100 Oct 31, 2018 [id number] Oct 06, 2018 ANAYELI KIRKPATRICK [facility] DICLOFENAC NA 1% GEL,TOP APPLY 2 GRAMS A FFECTED AREA TWO TIMES A DAY NEEDED FOR PAIN AND INFLAMMATION. DO NOT EXCEED 16GM DAILY TO ANY AFFECTED JOINT OF LOWER EXTREMITIES. DO NOT EXCEED 8GM DAILY TO ANY AFFECTED JOINT OF UPPER EXTREMITES. DO NOT EXCEED TOTAL DOSE OF 32GM DAILY FOR ALL JOINTS. 100 Jan 17, 2019 [id number] Dec 20, 2018 PAMELA RAMSEY FLUTICASONE PROPIONATE 50MCG/SPRAY SOLN,NASAL,16GM Active INSTILL 1 SPRAY IN EACH NOSTRIL ONCE A DAY SHAKE GENTLY BEFORE USE! - MUST BE USED DIRECTED FOR 3 WEEKS TO PROVIDE BENEFIT. * NO EARLY REFILLS * 1UNIT = 30DAYS AT 4 PF/DAY OR 60DAYS AT 2PF/DAY 2 Dec 19, 2019 [id number] August 26, 2019 PAMELA RAMSEY KETOTIFEN 0.025% SOLN,OPH Active INSTILL 1 DROP IN BOTH EYES TWO TIMES A DAY FOR RELIEF OF ALLERGY SYMPTOMS IN EYE(S) 10 Feb 01, 2020 [id number] September 04, 2019 [facility] LANCET,SOFTCLIX Active USE LANCET BIW FOR TESTING BL OOD GLUCOSE DIRECTED 100 Sep 29, 2020 [id number] Sep 30, 2019 CHUCHOMAURICIO [facility] LANCET,SOFTCLIX Discontinued USE LANCET BIW FO R TESTING BLOOD GLUCOSE DIRECTED 100 Dec 19, 2019 [id number] Jun 06, 2019 PAMELA RAMSEY LANCET,SOFTCLIX Discontinued USE LANCET BIW FO R TESTING BLOOD GLUCOSE DIRECTED 100 Jul 25, 2019 [id number] Nov 12, 2018 PAMELA RAMSEY LISINOPRIL 40MG TAB Non- [place] TAKE ONE-HALF TABLET BY MOUTH EVERY MORNING Non-VA Documented by: PAMELA RAMSEY nted at: [facility] LORATADINE/PSEUDOEPHEDRINE TAB,SA Non-VA TAKE BY MOUTH No n-VA Documented by: JUAN LANG nted at: [facility] MAGNESIUM OXIDE 400MG TAB Non-VA TAKE ONE [...] ACID (REPLACES ACIPHEX) 180 Dec 19, 2019 [id number] August 26, 2019 PAMELA RAMSEY POLYETHYLENE GLYCOL [...] ANAYELI KIRKPATRICK Docume nted at: [facility] [place] [facility] TERBINAFINE HCL 1% CREAM,TOP Active APPLY LIGHT LY TO AFFECTED AREA TWO TIMES A DAY FOR INFECTION Sep 23, 2020 [id number] Sep 24, 2019 ADRIEL HERNANDEZ UREA 20% CREAM,TOP Active APPLY LIGHTLY (20%) TO AFFECTED AREA TWO TIMES A DAY NEEDED TO PROMOTE HEALING,RUB IN UNTIL COMPLETELY ABSORBED*FOR TOPICAL USE ONLY* APPLY TO BOTH FEET DIRECTED. 90 Sep 25, 2020 [id number] Sep 26, 2019 ADIREL HERNANDEZ Problems (Conditions): All historical and current [...] Alcohol intake above recommended sensible limits Active 214674538 [facility] Allergic conjunctivitis Active 484638891 [facility] Bilateral senile combined form cataracts of eyes Active 32298789771 9108 [facility] Bilateral tinnitus Active 2350587979621 CHASTITY JEAN [facility] Coronary arteriosclerosis Active 14871317 September 08, 2014 Entered By: PADMA LONG Comment: hx of ptca to RCA several yrs. agoMa2014 Entered By: PADMA LONG Comment: heart cath 09/01/14, neg. / previous stent to RCA,, [place] HATCHER, JENNEY R [facility] Diabetes mellitus Active 16612675 BRAULIOPAMELA TOMAS [facility] Disorder of pancreas Active 2154160 September 08, 2014 Entered By: PADMA LONG Comment: 2.5cm low density lseion in bodyMay 2014 Entered By: PADMA LONG Comment: question of communication with pancreatic ductMay 2014 Entered By: PADMA LONG Comment: favored to be cystic pancreatic cancerMay 2014 Entered By: PADMA LONG Comment: per abdominal CT 09/01/14, [place] FRAZIER, JAY J [facility] Dry eyes Active 844840848 [facility] Gastro-esophageal reflux disease without esophagitis ( SNOMED CT 256081528) Active 188103752 ALF GUEVARA [facility] History of malignant neoplasm of lung Active 789745658 CHAPO BARRETO [facility] Hyperlipidemia (SNOMED CT 15323659) Active 74764227 BRAULIOPAMELA TOMAS [facility] Lung mass Active 755831637 September 08, 2014 E ntered By: PADMA [...] uncertain behavior of skin of eyelid Active 56415179 KATHERINE MATT [facility] Obesity Active 522296012 [facility] Obstructive sleep apnea syndrome (SNOMED CT 70553313) Active 352022 015 EVONNEPHILIPPE [facility] Pancreatic cyst Active 59276819 MASONFAMJAYLENE [facility] Papilloma of right eyelid Active [id number] [facility] Polyp of colon Active 27952481 Jan 23 Entered By: PADMA LONG Comment: c-scope 01/17/16, multiple benign colonic polypsJun 28, 2017 Entered By: PADMA LONG Comment: [facility] three benign polyps- sigmoid colon, transverse colon,cecum. see path report cprs SHARRON TORRES [facility] Pulmonary emphysema Active 31650513 0 BRIANA GAVIN [facility] Sensorineural hearing loss, bilateral Active 829688818 CHASTITY JEAN [facility] Snoring Active 61298515 BULLOCK,SONG [facility] Type 2 diabetes mellitus without complication Active 144305016 [facility] Environmental Allergies (ICD-9-CM 477.9) Inactive 477.9 Dec 18, 2017 PADMA LONG [facility] External hemorrhoids without mention of complication (ICD-9- CM 455.3) Inactive 455.3 Dec 18, 2017 [facility] Impotence of organic origin (ICD-9-CM 607.84) Inactive 607.84 Dec 18, 2017 [facility] LONG [facility] Screening for Lipoid disorders (ICD-9-CM V77.91) Inactive V77.91 Jan 18, 2007 [facility]MA LONG [facility] Stye * (ICD-9-CM 373.11) Inactive 373.11 Dec 18, 201 8 Jan 18, 2007 Entered By: PADMA LONG Comment: bilat lower lids, chronic/recurrent [facility]MA LONG [facility] Tobacco Use Disorder, Continuous Inactive 305.1 Dec 18, 2017 Jan 18, 2007 Entered By: PADMA LONG Comment: one ppd PADMA LONG [facility] Radiology Reports: +/- 30 days of the [...] the Encounter. The data comes from all [facility] facilities. Date/Time Pathology Report Provider [...] 11:11) Microscopic examination is performed. DIAGNOSIS: Specimen: [id number] Spec Type: SURGICAL Abdulkadir: 04/03/19 Rec: 04/03/19-124 PATHOLOGIC DIAGNOSIS Skin lesion, right upper cheek, biopsy: 1. Seborrheic keratosis, not involving resection margins. 2. Solar elastosis. Skin lesion, right lower mid margin, biopsy: 1. Seborrheic keratosis, with tumor at tissue edge/margin, but with benign features. LL COPIES TO: KATHERINE MATT [facility] PATHOLOGIST CODES: 75532/2 at 1235 The gross and microscopic examinations and interpretation were performed at [facility] Department of Pathology, [address] [place] [id number]. Slides and paraffin blocks are on file at [facility]. =--=--=--=--=--=--=--=--=--=--=--=--=--=--=--=--=--=--=--=--=--=--=--=--=--=-- Performing Laboratory: Surgical Pathology Report Performed By: [facility] [CLIA# [id number]] [address] [place] [id number] [facility] BRYAN 15 Encounter Notes: All associated encounter notes This section contains the clinical notes associated to the Encounter. Date/Time Encounter Note(s) Provider Source Mar 10, 2019 01:01 PM PHYSICAL MEDICINE REHAB CONS ULT: LOCAL TITLE: WI-REHAB/CONSULT (CS) STANDARD TITLE: PHYSICAL MEDICINE REHAB CONSULT DATE OF NOTE: MAR 10, 2019@13:01 ENTRY DATE: MAR 10, 2019@13:01:57 AUTHOR: NGAA MATAMOROS COSIGNER: URGENCY: STATUS: COMPLETED PHYSICAL THERAPY [...] time with transportation and people cancelling appointments. reports using lumbar traction at current PT [...] bowel or bladder function? No SOCIAL/EMPLOYMENT HISTORY: [place] from [place], [place], receiving treatment in community for low back pain. PAST MEDICAL HISTORY: 1. Gastro-esophageal reflux disease without esophagitis (SNOMED CT 907975570) 2. Hyperlipidemia (SNOMED CT 28613964) 3. Diabetes mellitus 4. Coronary arteriosclerosis hx of pact to RCA several yrs. ago heart Cath 09/01/14, neg. / previous stent to RCA,, [place] 5. 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 Lung mass 4.5 cm mass, post. segment right upper lobe. mild adenopathy in mediastinum and bilat. darby most likely related to lung cancer per ct angio of chest with contrast 09/01/14,[place] per path report- mod. differentiated bronchogenic adenoca. 7. Pulmonary emphysema 8. Alcohol intake above recommended sensible limits 9. Pancreatic cyst 10. Polyp of colon c-scope 01/17/16, eneida monsalve benign colonic polyps c-scope,[facility]/25/17,[facility], three benign polyps- sigmoid colon, transverse colon,cecum. see path report cprs 11. Obstructive sleep apnea (SNOMED CT 7 6568183) 12. Snoring 13. Obesity 14. Sensorineural hearing [...] currently receiving care in the community in [place], [place]. Due to no noted comorbid factors [...] PT DPT Signed: 03/10/2019 14:57 [place] MAT[facility] [facility]
--- OUTSIDE RECORDS SUMMARY | 2019-12-02 13:13 | XMS REPORT ---
Author Author Department [facility] HERBERTH kline Organization Department of [facility] Address [address] [place] [address] Phone Unavailable Care Team Providers Care Superintendent Tests Name Role Phone MARYADRIEL PCP Unavailable Insurance Providers: All historical and current No Data Provided for This Section Selected Encounter This section includes the information on record at [place] for the Encounter. Date/Time Encounter Type Encounter Description Reason Provider Source Jan 06, 2019 08:06 AM Outpatient Encounter ADMIN PAT ACTIVTIES (MASNO NCT) [facility] 15 IHE Encounter Template Text [...] 2019 09:00 AM AMBULATORY - MEDICINE [facility] Mar 10, 2019 12:30 PM AMBULATORY - SURGERY [facility] Mar 21, 2019 09:15 AM AMBULATORY - NONE [place] [facility] Mar 21, 2019 09:30 AM AMBULATORY - MEDICINE [facility] Mar 21, 2019 09:31 AM AMBULATORY - MEDICINE ARTUR BLAS [facility] Mar 21, 2019 10:00 AM AMBULATORY - MEDICINE [facility] Mar 21, 2019 10:01 AM AMBULATORY - MEDICINE ARTUR BLAS [facility] Mar 26, 2019 10:00 AM AMBULATORY - NONE ARTUR BLAS [facility] Apr 03, 2019 10:00 AM AMBULATORY - SURGERY ARTUR CARRASQUILLO Apr 14, 2019 10:00 AM AMBULATORY - SURGERY [facility] Apr 28, 2019 11:00 AM AMBULATORY - NONE ARTUR BLAS [facility] Jun 25, 2019 11:30 AM AMBULATORY - NONE ARTUR BLAS [facility] Jun 25, 2019 01:15 PM AMBULATORY - MEDICINE ARTUR BLAS [facility] Surgical Procedures: All associated to the encounter [...] Range Comment Dec 18, 2018 08:45 AM [facility] CBC & DIFF Specimen Type: BLOOD [...] 0.4 % Dec 18, 2018 08:45 AM [place] [facility] COMPREHENSIVE METABOLIC PA KELLE Specimen Type: [...] EGFR >60 Dec 18, 2018 08:45 AM [place] [facility] LIPID PROFILE(HDL,TRIG,CHO L,LDL) Specimen Type: PLASMA Comment: For eGFR: eGFR results >60 are imprecise. Many variables affect the calculated result. Interpretation of eGFR results >60 must be monitored over time. CHOLESTEROL 172 mg/dL 0-200 TRIGS 190 mg/dL H 0-150 HDL-CHOLESTEROL 40 mg/dL >40 LDL (CALC) 94 mg/dL 0-99.9 Dec 18, 2018 08:45 AM [facility] PROSTATIC SPECIFIC ANTIGEN (TOTAL) Specimen Type: SERUM No comment entered. PROSTATIC SPECIFIC ANTIGEN(TOTAL) 1.3 ng/mL 0-4 Dec 18, 2018 08:45 AM [facility] HEMOGLOBIN A1C Specimen Type: BLOOD No comment [...] Negative Negative Dec 18, 2018 08:45 AM [facility] MICROALBUMIN (ANANT,WI) RANDO M URINE Specimen Type: URINE Comment: Microalbumin is below the linearity of the instrument, unable to calculate the albumin/creatinine ratio. *MICROALBUMIN,RAND < 5 ug/mL *MICROALB/CREAT canc mcg/mg cr *PROT/BRAILLE TEACHER RATIO 0.1 *UR PROTEIN 8 mg/dL *UR [...] (diso rder) [facility], VIS[facility] 15 Medications: VA dispensed (-15 months) and Non-VA Documented (Obtained Outside V A) Section Date Range: 1) prescriptions processed by a VA pharmacy in the last 15 m [facility], and 2) all medications recorded in the [place] medical record as "non-VA medic ations". Pharmacy [...] TEST BLOOD GLUCOSE 50 Dec 19, 2019 [id number] September 04, 2019 PAMELA RAMSEY ACCU-CHEK CHARLES PLUS (GLUCOSE) TEST STRIP Discontinued USE 1 STRIP FOR TESTING TWO TIMES PER WEEK - DIRECTED TO TEST BLOOD GLUCOSE 50 Jul 25, 2019 [id number] Nov 12, 2018 PAMELA RAMSEY ALBUTEROL SO4 90MCG/ACTUAT (CFC-F) INHL,ORAL,6.7GM Active INHALE 2 PUFFS BY ORAL INHALATION EVERY 4 HOURS NEEDED FOR BREATHING. SHAKE WELL. RINSE MOUTHPIECE FREQUENTLY TO PREVENT CLOGGING. USE NEEDED FOR SHORTNESS OF AIR/WHEEZING FOR BREATHING. SHAKE WELL. RINSE MOUTHPIECE FREQUENTLY TO PREVENT CLOGGING. USE NEEDED FOR SHORTNESS OF AIR/WHEEZING 1 Dec 19, 2019 [id number] September 04, 2019 PAMELA RAMSEY [facility] ALCOHOL PREP PAD Active USE 1 PAD ON SKIN BIW TO CLEAN AND DISINFECT THE SKIN 200 Sep 29, 2020 [id number] Sep 30, 2019 MAURICIO RANKIN [facility] ALCOHOL PREP PAD Discontinued USE 1 PAD ON SKIN BI W TO CLEAN AND DISINFECT THE SKIN 200 Dec 19, 2019 [id number] Jun 06, 2019 PAMELA RAMSEY [facility] ALCOHOL PREP PAD Discontinued USE 1 PAD ON SKIN BI W TO CLEAN AND DISINFECT THE SKIN 200 Jul 25, 2019 [id number] Nov 12, 2018 PAMELA RAMSEY [facility] ASCORBIC ACID 250MG TAB Non-VA TAKE ONE TABLET BY MOUTH ONCE A DAY Non-VA Documented by: SHANIQUA SCHMIDT nted at: [facility] ASPIRIN 25MG/DIPYRIDAMOLE 200MG CAP,SA Active T CHAPIN 1 CAPSULE BY MOUTH TWO TIMES A DAY - SWALLOW WHOLE. DO NOT CRUSH OR CHEW. FOR RECURRENT TIA/STROKE 180 Dec 19, 2019 [id number] Dec 20, 2018 PAMELA RAMSEY [facility] ASPIRIN 25MG/DIPYRIDAMOLE 200MG CAP,SA Discontinued T CHAPIN 1 CAPSULE BY MOUTH TWO TIMES A DAY - SWALLOW WHOLE. DO NOT CRUSH OR CHEW. FOR RECURRENT TIA/STROKE 180 Feb 06, 2019 [id number] Sep 28, 2018 ZACHARY GRECO ASPIRIN 81MG TAB,EC Non- VA TAKE ONE TABLET BY MOUTH ONCE A DAY Non-VA Documented by: PADMA LONG nted at: [facility] ATORVASTATIN CA 80MG TAB Active TAKE ONE TABLET BY MOUTH AT BEDTIME FOR CHOLESTEROL - REPORT ANY UNEXPLAINED MUSCLE PAIN/WEAKNESS TO YOUR PROVIDER 90 Dec 19, 2019 [id number] September 04, 2019 PAMELA RAMSEY ATORVASTATIN CA 80MG TAB Discontinued TAKE ONE TABLET BY MOUTH AT BEDTIME FOR CHOLESTEROL - REPORT ANY UNEXPLAINED MUSCLE PAIN/WEAKNESS TO YOUR PROVIDER 90 Dec 20, 2018 [id number] Nov 12, 2018 PAMELA RAMSEY BUDESONIDE 160MCG/FORMOTEROL FUM 4.5MCG/SPRAY INHL,ORAL,10.2 GM Active INHALE 2 PUFFS BY MOUTH TWO TIMES A DAY FOR BREATHING. SHAKE WELL. RINSE MOUTH AND SPIT AFTER EACH USE. 3 Apr 24, 2020 [id number] August 22, 2019 [facility]ATES [facility] CALCIUM/VITAMIN D TAB No n-VA TAKE BY MOUTH ONCE A DAY Non-V A Documented by: PADMA LONG nted at: [facility] CARBOXYMETHYLCELLULOSE NA 0.5% SOLN,OPH Active INSTILL ONE DROP IN BOTH EYES FOUR TIMES A DAY FOR DRY EYES 15 Feb 01, 2020 [id number] September 03 0 NEDA SHAW [facility] DICLOFENAC NA 1% GEL,TOP Discontinued APPLY 2 GRAMS A FFECTED AREA TWO TIMES A DAY NEEDED FOR PAIN AND INFLAMMATION. DO NOT EXCEED 16GM DAILY TO ANY AFFECTED JOINT OF LOWER EXTREMITIES. DO NOT EXCEED 8GM DAILY TO ANY AFFECTED JOINT OF UPPER EXTREMITES. DO NOT EXCEED TOTAL DOSE OF 32GM DAILY FOR ALL JOINTS. 100 Oct 31, 2018 [id number] Oct 06, 2018 ANAYELI KIRKPATRICK [facility] DICLOFENAC NA 1% GEL,TOP APPLY 2 GRAMS A FFECTED AREA TWO TIMES A DAY NEEDED FOR PAIN AND INFLAMMATION. DO NOT EXCEED 16GM DAILY TO ANY AFFECTED JOINT OF LOWER EXTREMITIES. DO NOT EXCEED 8GM DAILY TO ANY AFFECTED JOINT OF UPPER EXTREMITES. DO NOT EXCEED TOTAL DOSE OF 32GM DAILY FOR ALL JOINTS. 100 Jan 17, 2019 [id number] Dec 20, 2018 PAMELA RAMSEY FLUTICASONE PROPIONATE 50MCG/SPRAY SOLN,NASAL,16GM Active INSTILL 1 SPRAY IN EACH NOSTRIL ONCE A DAY SHAKE GENTLY BEFORE USE! - MUST BE USED DIRECTED FOR 3 WEEKS TO PROVIDE BENEFIT. * NO EARLY REFILLS * 1UNIT = 30DAYS AT 4 PF/DAY OR 60DAYS AT 2PF/DAY 2 Dec 19, 2019 [id number] August 26, 2019 PAMELA RAMSEY KETOTIFEN 0.025% SOLN,OPH Active INSTILL 1 DROP IN BOTH EYES TWO TIMES A DAY FOR RELIEF OF ALLERGY SYMPTOMS IN EYE(S) 10 Feb 01, 2020 [id number] September 04, 2019 NEDA SHAW [facility] LANCET,SOFTCLIX Active USE LANCET BIW FOR TESTING BL OOD GLUCOSE DIRECTED 100 Sep 29, 2020 [id number] Sep 30, 2019 MAURICIO RANKIN [facility] LANCET,SOFTCLIX Discontinued USE LANCET BIW FO R TESTING BLOOD GLUCOSE DIRECTED 100 Dec 19, 2019 [id number] Jun 06, 2019 PAMELA RAMSEY [facility] LANCET,SOFTCLIX Discontinued USE LANCET BIW FO R TESTING BLOOD GLUCOSE DIRECTED 100 Jul 25, 2019 [id number] Nov 12, 2018 PAMELA RAMSEY LISINOPRIL 40MG TAB Non- VA TAKE ONE-HALF TABLET BY MOUTH EVERY MORNING Non-VA Documented by: PAMELA RAMSEY nted at: [facility] LORATADINE/PSEUDOEPHEDRINE TAB,SA Non-VA TAKE BY MOUTH No n-VA Documented by: JUAN LANG nted at: ARTUR BLAS [facility] MAGNESIUM OXIDE 400MG TAB Non-VA TAKE [...] ACID (REPLACES ACIPHEX) 180 Dec 19, 2019 [id number] August 26, 2019 PAMELA RAMSEY POLYETHYLENE GLYCOL [...] Documented by: KATHERINE MATT Docume nted at: [facility] PREGABALIN 150MG CAP,ORAL Non-VA TAKE [...] A DAY FOR INFECTION Sep 23, 2020 [id number] Sep 24, 2019 ADRIEL HERNANDEZ UREA 20% CREAM,TOP Active APPLY LIGHTLY (20%) TO AFFECTED AREA TWO TIMES A DAY NEEDED TO PROMOTE HEALING,RUB IN UNTIL COMPLETELY ABSORBED*FOR TOPICAL USE ONLY* APPLY TO BOTH FEET DIRECTED. Sep 25, 2020 [id number] Sep 26, 2019 ADRIEL HERNANDEZ Problems (Conditions): [...] Alcohol intake above recommended sensible limits Active 278023994 [facility] Allergic conjunctivitis Active 463686969 [facility]AW [facility] Bilateral senile combined form cataracts of eyes Active 81212799701 9108 AINSWORTHNEDA [facility] Bilateral tinnitus Active 1141723821197 [facility] Coronary arteriosclerosis Active 26406001 September 08, 2014 Entered By: PADMA LONG Comment: hx of ptca to RCA several yrs. agoSeptember 08, 2014 Entered By: PADMA LONG Comment: heart cath 09/01/14, neg. / previous stent to RCA,, via abida meneses ks HATCHER, JENNEY R ROBERT [facility] Diabetes mellitus Active 58011959 PAMELA RAMSEY [facility] Disorder of pancreas Active 9563765 September 08, 2014 Entered By: PDAMA LONG Comment: 2.5cm low density lseion in bodyMay 2014 Entered By: PADMA LONG Comment: question of communication with pancreatic ductMay 2014 Entered By: PADMA LONG Comment: favored to be cystic pancreatic cancerMay 2014 Entered By: PADMA LONG Comment: per abdominal CT 09/01/14, via abida meneses ks FRAZIER, JAY J [facility] Dry eyes Active 305501687 NEDA SHAW [facility] Gastro-esophageal reflux disease without esophagitis ( SNOMED CT 786106107) Active 304509074 ALF GUEVARA [facility] History of malignant neoplasm of lung Active 926670706 CHAPO BARRETO [facility] Hyperlipidemia (SNOMED CT 79897808) Active 81528161 PAMELA RAMSEY [facility] Lung mass Active 493183583 September 08, 2014 E ntered By: PADMA LONG Comment: 4.5 cm mass, post. segment right upper lobe.September 08, 2014 Entered By: PADMA LONG Comment: mild adenopathy in mediastinum and bilat. [email or web address] Entered By: PADMA LONG Comment: most likely related to lung cancerMa2014 Entered By: PADMA LONG Comment: per ct angio of chest with contrast 09/01/14,via abida menesescaJun 2014 Entered By: PADMA LONG Comment: per path report- mod. differentiated bronchogenic adenoca. 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 Active 44593388 KATHERINE MATT [facility] Obesity Active 940393732 [facility] Obstructive sleep apnea syndrome (SNOMED CT 88227347) Active 830054 015 PHILIPPE DOUGLASS [facility] Pancreatic cyst Active 53147147 JAYLENE GUEVARA [facility] Papilloma of right eyelid Active [id number] NEDA SHAW [facility] Polyp of colon Active 76268742 Jan 23 Entered By: PADMA LONG Comment: c-scope 01/17/16, multiple benign colonic polypsJun 28, 2017 Entered By: PADMA LONG Comment: c-scope,[facility]25/17,[facility], three benign polyps- sigmoid colon, transverse colon,cecum. see path report cprs SHARRON TORRES [facility] Pulmonary emphysema Active 38276491 0 BRIANA GAVIN [facility] Sensorineural hearing loss, bilateral Active 155395247 CHASTITY JEAN [facility] Snoring Active 77864547 SONG BULLOCK [facility] Type 2 diabetes mellitus without complication Active 510719926 NEDA SHAW [facility] Environmental Allergies (ICD-9-CM 477.9) Inactive 477.9 Dec 18, 2017 PADMA LONG [facility] External hemorrhoids without mention of complication (ICD-9- CM 455.3) Inactive 455.3 Dec 18, 2017 [facility] Impotence of organic origin (ICD-9-CM 607.84) Inactive 607.84 Dec 18, 2017 PADMA LONG [facility] Screening for Lipoid disorders (ICD-9-CM V77.91) Inactive V77.91 Jan 18, 2007 [facility] Stye * (ICD-9-CM 373.11) Inactive 373.11 Dec 18, 201 8 Jan 18, 2007 Entered By: PADMA LONG Comment: bilat lower lids, chronic/recurrent PADMA LONG Juan M [facility] Tobacco Use Disorder, Continuous Inactive 305.1 Dec 18, 2017 Jan 18, 2007 Entered By: PADMA LONG Comment: one ppd PADMA LONG [facility] Radiology Reports: +/- 30 days of [...] MUNGUIA MSA Signed: 07/09/2019 08:08 MADALYN MUNGUIA [facility]
--- OUTSIDE RECORDS SUMMARY | 2019-12-02 13:13 | XMS REPORT | Encounter Summary ---
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 Date/Time Primary/Secondary Diagnosis Diagnosis Name Provider Source Jan 31, 2019 11:31 AM PRIMARY Type 2 diabetes mellitus w ithout complications HUBERT GUZMAN [facility] Jan 31, 2019 11:31 AM SECONDARY Combined forms of age-related cataract, bilateral HUBERT GUZMAN [facility] Jan 31, 2019 11:31 AM SECONDARY Dry eye syndrome of bilate ral lacrimal glands HUBERT GUZMAN [facility] Jan 31, 2019 11:31 AM SECONDARY Hypermetropia, bilateral Josafat GUZMAN [facility] Jan 31, 2019 11:31 AM SECONDARY Other benign neopl asm skin/ right lower eyelid, inc canthus HUBERT GUZMAN [facility] Jan 31, 2019 11:31 AM SECONDARY Other chronic allergic con junctivitis HUBERT GUZMAN [facility] Jan 31, 2019 11:31 AM SECONDARY Presbyopia THOMASEVANSHUBERT Lloyd [facility] Jan 31, 2019 11:31 AM SECONDARY Regular astigmatism, bilateral D HUBERT CHINO [facility] Plan of Treatment: Future Appointments (+ 6 [...] The data comes from all [place] treatment [facility]. Appointment Date/Time Appointment Type Appointment Facili ty Name Mar 10, 2019 12:30 PM AMBULATORY - SURGERY [facility] Mar 21, 2019 09:15 AM AMBULATORY - NONE [facility] Mar 21, 2019 09:30 AM AMBULATORY - MEDICINE [facility] Mar 21, 2019 09:31 AM AMBULATORY - MEDICINE ARTUR BLAS [facility] Mar 21, 2019 10:00 AM AMBULATORY - MEDICINE [facility] Mar 21, 2019 10:01 AM AMBULATORY - MEDICINE [facility] BL[facility] Mar 26, 2019 10:00 AM [facility] Apr 03, 2019 10:00 AM AMBULAT[facility] - SURGERY ARTUR CARRASQUILL[facility] Apr 14, 2019 10:00 AM AMBULATORY - SURGERY [facility] Apr 28, 2019 11:00 AM [facility] Jun 25, 2019 11:30 AM [facility] Jun 25, 2019 01:15 PM AMBULATORY - MEDICINE [facility] Jul 23, 2019 11:00 AM [facility] Jul 25, 2019 08:00 AM AMBULATORY [...] to adverse reactions to drug (diso rder) [facility], [facility] 15 PLAVIX September 08, 2014 Propensity to adverse reactions to drug (diso rder) [facility], VISN 15 Medications: VA dispensed (-15 months) and Non-VA Documented (Obtained Outside V A) Section Date Range: 1) prescriptions processed by a VA pharmacy in the last 15 m [facility], and 2) all medications recorded [...] TEST BLOOD GLUCOSE 50 Dec 19, 2019 [id number] September 04, 2019 PAMELA RAMSEY ACCU-CHEK CHARLES PLUS (GLUCOSE) TEST STRIP Discontinued USE 1 STRIP FOR TESTING TWO TIMES PER WEEK - DIRECTED TO TEST BLOOD GLUCOSE 50 Jul 25, 2019 [id number] Nov 12, 2018 PAMELA RAMSEY ALBUTEROL SO4 90MCG/ACTUAT (CFC-F) INHL,ORAL,6.7GM Active INHALE 2 PUFFS BY ORAL INHALATION EVERY 4 HOURS NEEDED FOR BREATHING. SHAKE WELL. RINSE MOUTHPIECE FREQUENTLY TO PREVENT CLOGGING. USE NEEDED FOR SHORTNESS OF AIR/WHEEZING FOR BREATHING. SHAKE WELL. RINSE MOUTHPIECE FREQUENTLY TO PREVENT CLOGGING. USE NEEDED FOR SHORTNESS OF AIR/WHEEZING 1 Dec 19, 2019 [id number] September 04, 2019 PAMELA RAMSEY ALCOHOL PREP PAD Active USE 1 PAD ON SKIN BIW TO CLEAN AND DISINFECT THE SKIN 200 Sep 29, 2020 [id number] Sep 30, 2019 MAURICIO RANKIN ALCOHOL PREP PAD Discontinued USE 1 PAD ON SKIN BI W TO CLEAN AND DISINFECT THE SKIN 200 Dec 19, 2019 [id number] Jun 06, 2019 PAMELA RAMSEY ALCOHOL PREP PAD Discontinued USE 1 PAD ON SKIN BI W TO CLEAN AND DISINFECT THE SKIN 200 Jul 25, 2019 [id number] Nov 12, 2018 PAMELA RAMSEY ASCORBIC ACID 250MG TAB Non-VA TAKE ONE TABLET BY MOUTH ONCE A DAY Non-VA Documented by: SHANIQUA SCHMIDT nted at: [facility] ASPIRIN 25MG/DIPYRIDAMOLE 200MG CAP,SA Active T CHAPIN 1 CAPSULE BY MOUTH TWO TIMES A DAY - SWALLOW WHOLE. DO NOT CRUSH OR CHEW. FOR RECURRENT TIA/STROKE 180 Dec 19, 2019 [id number] Dec 20, 2018 PAMELA RAMSEY ASPIRIN 25MG/DIPYRIDAMOLE 200MG CAP,SA Discontinued T CHAPIN 1 CAPSULE BY MOUTH TWO TIMES A DAY - SWALLOW WHOLE. DO NOT CRUSH OR CHEW. FOR RECURRENT TIA/STROKE 180 Feb 06, 2019 [id number] Sep 28, 2018 ZACHARY GRECO [facility] ASPIRIN 81MG TAB,EC Non- VA TAKE ONE TABLET BY MOUTH ONCE A DAY Non-VA Documented by: PADMA LONG nted at: [facility] ATORVASTATIN CA 80MG TAB Active TAKE ONE TABLET BY MOUTH AT BEDTIME FOR CHOLESTEROL - REPORT ANY UNEXPLAINED MUSCLE PAIN/WEAKNESS TO YOUR PROVIDER 90 Dec 19, 2019 [id number] September 04, 2019 PAMELA RAMSEY ATORVASTATIN CA 80MG TAB Discontinued TAKE ONE TABLET BY MOUTH AT BEDTIME FOR CHOLESTEROL - REPORT ANY UNEXPLAINED MUSCLE PAIN/WEAKNESS TO YOUR PROVIDER 90 Dec 20, 2018 [id number] Nov 12, 2018 PAMELA RAMSEY BUDESONIDE 160MCG/FORMOTEROL FUM 4.5MCG/SPRAY INHL,ORAL,10.2 GM Active INHALE 2 PUFFS BY MOUTH TWO TIMES A DAY FOR BREATHING. SHAKE WELL. RINSE MOUTH AND SPIT AFTER EACH USE. 3 Apr 24, 2020 [id number] August 22, 2019 LISSA OATES [facility] CALCIUM/VITAMIN D TAB No n-VA TAKE BY MOUTH ONCE A DAY Non-V A Documented by: PADMA LONG nted at: [facility] CARBOXYMETHYLCELLULOSE NA 0.5% SOLN,OPH Active INSTILL ONE DROP IN BOTH EYES FOUR TIMES A DAY FOR DRY EYES 15 Feb 01, 2020 [id number] September 03 0 NEDA SHAW [facility] DICLOFENAC NA 1% GEL,TOP Discontinued APPLY 2 GRAMS A FFECTED AREA TWO TIMES A DAY NEEDED FOR PAIN AND INFLAMMATION. DO NOT EXCEED 16GM DAILY TO ANY AFFECTED JOINT OF LOWER EXTREMITIES. DO NOT EXCEED 8GM DAILY TO ANY AFFECTED JOINT OF UPPER EXTREMITES. DO NOT EXCEED TOTAL DOSE OF 32GM DAILY FOR ALL JOINTS. 100 Oct 31, 2018 [id number] Oct 06, 2018 ANAYELI KIRKPATRICK [facility] DICLOFENAC NA 1% GEL,TOP APPLY 2 GRAMS A FFECTED AREA TWO TIMES A DAY NEEDED FOR PAIN AND INFLAMMATION. DO NOT EXCEED 16GM DAILY TO ANY AFFECTED JOINT OF LOWER EXTREMITIES. DO NOT EXCEED 8GM DAILY TO ANY AFFECTED JOINT OF UPPER EXTREMITES. DO NOT EXCEED TOTAL DOSE OF 32GM DAILY FOR ALL JOINTS. 100 Jan 17, 2019 [id number] Dec 20, 2018 PAMELA RAMSEY FLUTICASONE PROPIONATE 50MCG/SPRAY SOLN,NASAL,16GM Active INSTILL 1 SPRAY IN EACH NOSTRIL ONCE A DAY SHAKE GENTLY BEFORE USE! - MUST BE USED DIRECTED FOR 3 WEEKS TO PROVIDE BENEFIT. * NO EARLY REFILLS * 1UNIT = 30DAYS AT 4 PF/DAY OR 60DAYS AT 2PF/DAY 2 Dec 19, 2019 [id number] August 26, 2019 PAMELA RAMSEY KETOTIFEN 0.025% SOLN,OPH Active INSTILL 1 DROP IN BOTH EYES TWO TIMES A DAY FOR RELIEF OF ALLERGY SYMPTOMS IN EYE(S) Feb 01, 2020 [id number] September 04, 2019 NEDA SHAW [facility] LANCET,SOFTCLIX Active USE LANCET BIW FOR TESTING BL OOD GLUCOSE DIRECTED Sep 29, 2020 [id number] Sep 30, 2019 MAURICIO RANKIN [facility] LANCET,SOFTCLIX Discontinued USE LANCET BIW FO R TESTING BLOOD GLUCOSE DIRECTED Dec 19, 2019 [id number] Jun 06, 2019 PAMELA RAMSEY [facility] LANCET,SOFTCLIX Discontinued USE LANCET BIW FO R TESTING BLOOD GLUCOSE DIRECTED Jul 25, 2019 [id number] Nov 12, 2018 PAMELA RAMSEY LISINOPRIL 40MG TAB Non- VA TAKE ONE-HALF TABLET BY MOUTH EVERY MORNING Non-VA Documented by: PAMELA RAMSEY nted at: [facility] LORATADINE/PSEUDOEPHEDRINE TAB,SA Non-VA TAKE BY MOUTH No n-VA Documented by: JUAN LANG nted at: ARTUR BLAS [facility] MAGNESIUM OXIDE 400MG TAB Non-VA TAKE [...] ACID (REPLACES ACIPHEX) 180 Dec 19, 2019 [id number] August 26, 2019 PAMELA RAMSEY POLYETHYLENE GLYCOL [...] Documented by: KATHERINE HARDWICK Docume nted at: [facility] PREGABALIN 150MG CAP,ORAL Non-VA TAKE 1 CAPSULE BY MOUTH TWO TIMES A DAY Non-VA Docume nted by: PAMELA RAMSEY nted at: [facility] SEMAGLUTIDE INJ,SOLN Non -VA INJECT SUBCUTANEOUSLY EVERY WEEK Non-VA Documented by: ANAYELI KIRKPATRICK Docume nted at: ARTUR BLAS [facility] TERBINAFINE HCL 1% CREAM,TOP Active APPLY LIGHT LY TO AFFECTED AREA TWO TIMES A DAY FOR INFECTION 90 Sep 23, 2020 [id number] Sep 24, 2019 ADRIEL HERNANDEZ UREA 20% CREAM,TOP Active APPLY LIGHTLY (20%) TO AFFECTED AREA TWO TIMES A DAY NEEDED TO PROMOTE HEALING,RUB IN UNTIL COMPLETELY ABSORBED*FOR TOPICAL USE ONLY* APPLY TO BOTH FEET DIRECTED. 90 Sep 25, 2020 [id number] Sep 26, 2019 ADRIEL HERNANDEZ Problems (Conditions): [...] Alcohol intake above recommended sensible limits Active 933737263 PADMA LONG [facility] Allergic conjunctivitis [facility] 660862731 [facility] Bilateral senile combined form cataracts of eyes Active [id number] 9108 COLINNEDA [facility] Bilateral tinnitus Active [id number] CHASTITY JEAN [facility] Coronary arteriosclerosis Active 77101953 September 08, 2014 Entered By: PADMA LONG Comment: hx of ptca to RCA several yrs. agoSeptember 08, 2014 Entered By: PADMA LONG Comment: heart cath 09/01/14, neg. / previous stent to RCA,, via abida meneses ks HATCHER, JENNEY R [facility] Diabetes mellitus Active 72495280 PAMELA RAMSEY [facility] Disorder of pancreas Active 5781446 September 08, 2014 Entered By: PADMA LONG Comment: 2.5cm low density lseion in bodyMay 2014 Entered By: PADMA LONG Comment: question of communication with pancreatic ductMay 2014 Entered By: PADMA LONG Comment: favored to be cystic pancreatic cancerMay 2014 Entered By: PADMA LONG Comment: per abdominal CT 09/01/14, via abida meneses,id PADMA LONG [facility] Dry eyes Active 587136169 [facility] Gastro-esophageal reflux disease without esophagitis ( SNOMED CT 224123624) Active 763837348 ALF GUEVARA [facility] History of malignant neoplasm of lung Active 842605878 CHAPO BARRETO [facility] Hyperlipidemia (SNOMED CT 64853079) Active 62391744 PAMELA RAMSEY [facility] Lung mass Active 224081068 September 08, 2014 E ntered By: PADMA LONG Comment: 4.5 cm mass, post. segment right upper lobe.September 08, 2014 Entered By: PADMA LONG Comment: mild adenopathy in mediastinum and bilat. hilaMay 2014 Entered By: PADMA LONG Comment: most likely related to lung cancerMay 2014 Entered By: PADMA LONG Comment: per ct angio of chest with contrast 09/01/14,[place] Entered By: PADMA LONG Comment: per path report- mod. differentiated bronchogenic adenoca. 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 Active 15059416 KATHERINE HARDWICK [facility] Obesity Active 255209726 [place] Obstructive sleep apnea syndrome (SNOMED CT 74669852) Active 678828 015 PHILIPPE DOUGLASS [facility] Pancreatic cyst Active 16695243 JAYLENE GUEVARA [facility] Papilloma of right eyelid Active [id number] NEDA SHAW [facility] Polyp of colon Active 76503632 Jan 23 16 Entered By: PADMA LONG Comment: c-scope 01/17/16, multiple benign colonic polypsJun 28, 2017 Entered By: PADMA LONG Comment: c-scope,06/25/17,[facility], three benign polyps- sigmoid colon, transverse colon,cecum. see path report cprs SHARRON TORRES [facility] Pulmonary emphysema Active 57994667 0 BRIANA GAVIN [facility] Sensorineural hearing loss, bilateral Active 899797474 CHASTITY JEAN [facility] Snoring Active 16081911 SONG BULLOCK [facility] Type 2 diabetes mellitus without complication Active 816862317 NEDA SHAW [facility] Environmental Allergies (ICD-9-CM 477.9) Inactive 477.9 Dec 18, [address] [facility] External hemorrhoids without mention of complication (ICD-9- CM 455.3) Inactive 455.3 Dec 18, 2017 PADMA LONG [facility] Impotence of organic origin (ICD-9-CM 607.84) Inactive 607.84 Dec 18, 2017 PADMA LONG [facility] Screening for Lipoid disorders (ICD-9-CM V77.91) Inactive V77.91 Jan 18, [address] [facility] Stye * (ICD-9-CM 373.11) Inactive 373.11 Dec 18, 201 8 Jan 18, 2007 Entered By: PADMA LONG Comment: bilat lower lids, chronic/recurrent PADMA LONG [facility] Tobacco Use Disorder, Continuous Inactive 305.1 Dec 18, 2017 Jan 18, 2007 Entered By: PADMA LONG Comment: one ppd PADMA LONG [facility] Radiology Reports: +/- 30 days of [...] esop 10/20/2015 ALF GUEVARA Hyperlipidemia (SNOMED CT 55485498) E78.2 12/18/2017 PAMELA RAMSEY Diabetes mellitus E11.8 12/18/2017 PAMELA RAMSEY Coronary arteriosclerosis I25.10 03/15/2018 KALA JONES Disorder of pancreas 577.9 09/08/2014 PADMA LONG Lung mass 786.6 09/23/2014 PADMA LONG Pulmonary emphysema R09.02 01/17/2016 0 Alcohol intake above recommended sensible mcbride 09/08/2014 PADMA LONG Pancreatic cyst Q45.2 03/17/2015 ALF GUEVARA Polyp of colon Z86.010 06/28/2017 SHARRON TORRES Obstructive sleep apnea (SNOMED CT 37593301) 03/21/2018 PHILIPPE DOUGLASS Snoring R06.83 12/27/2017 SONG BULLOCK Obesity E66.9 12/27/2017 SONG [place]OCK Sensorineural hearing loss, bilateral H90.3 02/04/2018 SLEDGE,CHASTITY A Bilateral tinnitus H93.13 02/04/2018 SLEDGECHASTITY A Allergies: PLAVIX, BRILINTA Specialty Pre-Appt Reason for [...] Both eyes 20/20 HAB RX: Right Eye: +1.50-0.85x103 Left Eye: +1.00-0.17p430 Add: +2.50 CHAIR SKILLS: Pupils were 4.5mm [...] punctal occlusion @ 0925 Above recorded by central supply technician and reviewed Purpose of today's exam: [...] ATTACHED EYE CLINIC NOTE /es/ ANDREW ALEJO IS ANALYST Signed: 01/31/2019 11:37 ANDREW ALEJO [facility] Jan 31, 2019 09:12 AM NURSING OUTPATIENT [...] Both eyes 20/20 HAB RX: Right Eye: +1.50-0.78i732 Left Eye: +1.00-0.51i690 Add: +2.50 CHAIR SKILLS: Pupils were 4.5mm [...] gtts administered with punctal occlusion @ 0925 /gisell/ DANNIE VASQUES [facility] CPOA Signed: 01/31/2019 09:26 DANNIE VASQUES [facility]
--- OUTSIDE RECORDS SUMMARY | 2019-12-02 13:14 | XMS REPORT | Encounter Summary ---
Author Author Department of [facility] Aff rsHERBERTH Organization [facility] Address [address] [place] [address] Phone Unavailable Care Team Providers Care Director Adult Name Role Phone ADRIEL HERNANDEZ PCP Unavailable [...] Jan 06, 2019 11:00 AM AMBULATORY - [facility] ARTUR TERAN [facility] [place] Jan 31, 2019 09:00 AM AMBULATORY - MEDICINE [facility] Mar 10, 2019 12:30 PM AMBULATORY - SURGERY [facility] Mar 21, 2019 09:15 AM AMBULATORY - NONE [facility] Mar 21, 2019 09:30 AM AMBULATORY - MEDICINE [facility] Mar 21, 2019 09:31 AM AMBULATORY - MEDICINE [facility]AN [facility] Mar 21, 2019 10:00 AM AMBULATORY - MEDICINE [facility] Mar 21, 2019 10:01 AM AMBULATORY - MEDICINE ARTUR TERAN [facility] Mar 26, 2019 10:00 AM AMBULATORY - NONE [facility] Apr 03, 2019 10:00 AM AMBULATORY - SURGERY ARTUR CARRASQUILLO Apr 14, 2019 10:00 AM AMBULATORY - SURGERY [facility] Apr 28, 2019 11:00 AM AMBULATORY - NONE ARTUR TERAN [facility] Surgical Procedures: All associated to the encounter [...] Comment Dec 18, 2018 08:45 AM [facility] CBC & DIFF Specimen [...] >60 Dec 18, 2018 08:45 AM [facility] LIPID PROFILE(HDL,TRIG,CHO L,LDL) Specimen Type: PLASMA Comment: For eGFR: eGFR results >60 are imprecise. Many variables affect the calculated result. Interpretation of eGFR results >60 must be monitored over time. CHOLESTEROL 172 mg/dL 0-200 TRIGS 190 mg/dL H 0-150 HDL-CHOLESTEROL 40 mg/dL >40 LDL (CALC) 94 mg/dL 0-99.9 Dec 18, 2018 08:45 AM [facility] PROSTATIC SPECIFIC ANTIGEN (TOTAL) Specimen Type: SERUM No comment entered. PROSTATIC SPECIFIC ANTIGEN(TOTAL) 1.3 ng/mL 0-4 Dec 18, 2018 08:45 AM [facility] HEMOGLOBIN A1C Specimen Type: BLOOD No [...] < 5 ug/mL *MICROALB/CREAT canc mcg/mg cr *PROT/INDEPENDENT AGENT MUSIC EDUCATION RATIO 0.1 *UR PROTEIN 8 mg/dL *UR [...] place. Date/Time Smoking Status/Tobacco Use Comment [facility] it Nov 23, 2017 09:51 AM CURRENT TOBACCO USER (READY TO QUIT) [facility] Nov 23, 2017 09:51 AM TOBACCO CESSATION REFERRAL DECLINED [facility] Nov 23, 2017 09:51 [...] 01, 2005 08:32 AM NON-TOBACCO USER [facility] Advance Directives: All historical and current [...] to adverse reactions to drug (diso rder) [facility] 15 [place] September 08, 2014 Propensity to adverse reactions to drug (diso rder) [facility] 15 Medications: VA dispensed (-15 months) and Non-VA Documented (Obtained Outside V A) Section Date Range: 1) prescriptions processed by a VA pharmacy in the last 15 m [facility], and 2) all medications recorded in the [place] medical record as "non-VA medic ations". Pharmacy terms refer to VA pharmacy's work on prescriptions. VA patient s are advised to take their medications as instructed by their health care team. The data comes from all [place] treatment facilities. Glossary of Pharmacy Terms:Active = A prescription that can be filled at the local [place] pharmacy.Active: On Hold = An active prescription [...] TEST BLOOD GLUCOSE 50 Dec 19, 2019 [id number] September 04, 2019 PAMELA RAMSEY ACCU-CHEK CHARLES PLUS (GLUCOSE) TEST STRIP Discontinued USE 1 STRIP FOR TESTING TWO TIMES PER WEEK - DIRECTED TO TEST BLOOD GLUCOSE 50 Jul 25, 2019 [id number] Nov 12, 2018 PAMELA RAMSEY ALBUTEROL SO4 90MCG/ACTUAT (CFC-F) INHL,ORAL,6.7GM Active INHALE 2 PUFFS BY ORAL INHALATION EVERY 4 HOURS NEEDED FOR BREATHING. SHAKE WELL. RINSE MOUTHPIECE FREQUENTLY TO PREVENT CLOGGING. USE NEEDED FOR SHORTNESS OF AIR/WHEEZING FOR BREATHING. SHAKE WELL. RINSE MOUTHPIECE FREQUENTLY TO PREVENT CLOGGING. USE NEEDED FOR SHORTNESS OF AIR/WHEEZING 1 Dec 19, 2019 [id number] September 04, 2019 PAMELA RAMSEY ALCOHOL PREP PAD Active USE 1 PAD ON SKIN BIW TO CLEAN AND DISINFECT THE SKIN 200 Sep 29, 2020 [id number] Sep 30, 2019 MAURICIO RANKIN ALCOHOL PREP PAD Discontinued USE 1 PAD ON SKIN BI W TO CLEAN AND DISINFECT THE SKIN 200 Dec 19, 2019 [id number] Jun 06, 2019 PAMELA RAMSEY ALCOHOL PREP PAD Discontinued USE 1 PAD ON SKIN BI W TO CLEAN AND DISINFECT THE SKIN 200 Jul 25, 2019 [id number] Nov 12, 2018 PAMELA RAMSEY ASCORBIC ACID 250MG TAB Non-VA TAKE ONE TABLET BY MOUTH ONCE A DAY Non-VA Documented by: SHANIQUA SCHMIDT nted at: [facility] ASPIRIN 25MG/DIPYRIDAMOLE 200MG CAP,SA Active T CHAPIN 1 CAPSULE BY MOUTH TWO TIMES A DAY - SWALLOW WHOLE. DO NOT CRUSH OR CHEW. FOR RECURRENT TIA/STROKE 180 Dec 19, 2019 [id number] Dec 20, 2018 PAMELA RAMSEY ASPIRIN 25MG/DIPYRIDAMOLE 200MG CAP,SA Discontinued T CHAPIN 1 CAPSULE BY MOUTH TWO TIMES A DAY - SWALLOW WHOLE. DO NOT CRUSH OR CHEW. FOR RECURRENT TIA/STROKE 180 Feb 06, 2019 [id number] Sep 28, 2018 ZACHARY GRECO [facility] ASPIRIN 81MG TAB,EC Non- VA TAKE ONE TABLET BY MOUTH ONCE A DAY Non-VA Documented by: PADMA LONG nted at: [facility] ATORVASTATIN CA 80MG TAB Active TAKE ONE TABLET BY MOUTH AT BEDTIME FOR CHOLESTEROL - REPORT ANY UNEXPLAINED MUSCLE PAIN/WEAKNESS TO YOUR PROVIDER 90 Dec 19, 2019 [id number] September 04, 2019 PAMELA RAMSEY ATORVASTATIN CA 80MG TAB Discontinued TAKE ONE TABLET BY MOUTH AT BEDTIME FOR CHOLESTEROL - REPORT ANY UNEXPLAINED MUSCLE PAIN/WEAKNESS TO YOUR PROVIDER 90 Dec 20, 2018 [id number] Nov 12, 2018 PAMELA RAMSEY BUDESONIDE 160MCG/FORMOTEROL FUM 4.5MCG/SPRAY INHL,ORAL,10.2 GM Active INHALE 2 PUFFS BY MOUTH TWO TIMES A DAY FOR BREATHING. SHAKE WELL. RINSE MOUTH AND SPIT AFTER EACH USE. 3 Apr 24, 2020 [id number] August 22, 2019 LISSA OATES [facility] CALCIUM/VITAMIN D TAB No n-VA TAKE BY MOUTH ONCE A DAY Non-V A Documented by: PADMA LONG nted at: [facility] CARBOXYMETHYLCELLULOSE NA 0.5% SOLN,OPH Active INSTILL ONE DROP IN BOTH EYES FOUR TIMES A DAY FOR DRY EYES Feb 01, 2020 [id number] September 03 0 [facility] SH[facility] DICLOFENAC NA 1% GEL,TOP Discontinued APPLY 2 GRAMS A FFECTED AREA TWO TIMES A DAY NEEDED FOR PAIN AND INFLAMMATION. DO NOT EXCEED 16GM DAILY TO ANY AFFECTED JOINT OF LOWER EXTREMITIES. DO NOT EXCEED 8GM DAILY TO ANY AFFECTED JOINT OF UPPER EXTREMITES. DO NOT EXCEED TOTAL DOSE OF 32GM DAILY FOR ALL JOINTS. 100 Oct 31, 2018 [id number] Oct 06, [address] [facility] DICLOFENAC NA 1% GEL,TOP APPLY 2 GRAMS A FFECTED AREA TWO TIMES A DAY NEEDED FOR PAIN AND INFLAMMATION. DO NOT EXCEED 16GM DAILY TO ANY AFFECTED JOINT OF LOWER EXTREMITIES. DO NOT EXCEED 8GM DAILY TO ANY AFFECTED JOINT OF UPPER EXTREMITES. DO NOT EXCEED TOTAL DOSE OF 32GM DAILY FOR ALL JOINTS. 100 Jan 17, 2019 [id number] Dec 20, 2018 PAMELA RAMSEY FLUTICASONE PROPIONATE 50MCG/SPRAY SOLN,NASAL,16GM Active INSTILL 1 SPRAY IN EACH NOSTRIL ONCE A DAY SHAKE GENTLY BEFORE USE! - MUST BE USED DIRECTED FOR 3 WEEKS TO PROVIDE BENEFIT. * NO EARLY REFILLS * 1UNIT = 30DAYS AT 4 PF/DAY OR 60DAYS AT 2PF/DAY 2 Dec 19, 2019 [id number] August 26, 2019 APMELA RAMSEY KETOTIFEN 0.025% SOLN,OPH Active INSTILL 1 DROP IN BOTH EYES TWO TIMES A DAY FOR RELIEF OF ALLERGY SYMPTOMS IN EYE(S) Feb 01, 2020 [id number] September 04, 2019 [facility] SH[facility] LANCET,SOFTCLIX Active USE LANCET BIW FOR TESTING BL OOD GLUCOSE DIRECTED Sep 29, 2020 [id number] Sep 30, 2019 [facility]IO RANKIN [facility] LANCET,SOFTCLIX Discontinued USE LANCET BIW FO R TESTING BLOOD GLUCOSE DIRECTED Dec 19, 2019 [id number] Jun 06, 2019 PAMELA RAMSEY LANCET,SOFTCLIX Discontinued USE LANCET BIW FO R TESTING BLOOD GLUCOSE DIRECTED Jul 25, 2019 [id number] Nov 12, 2018 PAMELA RAMSEY LISINOPRIL 40MG TAB Non- VA TAKE ONE-HALF TABLET BY MOUTH EVERY MORNING Non-VA Documented by: PAMELA RAMSEY nted at: [facility] LORATADINE/PSEUDOEPHEDRINE TAB,SA Non-VA TAKE BY MOUTH No n-VA Documented by: JUAN LANG nted at: ARTUR TERAN [facility] MAGNESIUM OXIDE 400MG TAB Non-VA TAKE [...] ACID (REPLACES ACIPHEX) 180 Dec 19, 2019 [id number] August 26, 2019 PAMELA RAMSEY POLYETHYLENE GLYCOL [...] Non-VA Documented by: KATHERINE MATT nted at: [facility] PREGABALIN 150MG CAP,ORAL Non-VA TAKE 1 CAPSULE BY MOUTH TWO TIMES A DAY Non-VA Docume nted by: PAMELA RAMSEY nted at: [facility] SEMAGLUTIDE INJ,SOLN Non -VA INJECT SUBCUTANEOUSLY EVERY WEEK Non-VA Documented by: ANAYELI KIRKPATRICK nted at: [facility] TERBINAFINE HCL 1% CREAM,TOP Active APPLY LIGHT LY TO AFFECTED AREA TWO TIMES A DAY FOR INFECTION Sep 23, 2020 [id number] Sep 24, 2019 ADRIEL HERNANDEZ UREA 20% CREAM,TOP Active APPLY LIGHTLY (20%) TO AFFECTED AREA TWO TIMES A DAY NEEDED TO PROMOTE HEALING,RUB IN UNTIL COMPLETELY ABSORBED*FOR TOPICAL USE ONLY* APPLY TO BOTH FEET DIRECTED. 90 Sep 25, 2020 [id number] Sep 26, 2019 ADRIEL HERNANDEZ Problems (Conditions): [...] Alcohol intake above recommended sensible limits Active 861674756 PADMA LONG [facility] Allergic conjunctivitis Active 812292457 NEDA SHAW [facility] Bilateral senile combined form cataracts of eyes Active [id number] [address] [facility] Bilateral tinnitus Active [id number] CHASTITY JEAN [facility] Coronary arteriosclerosis Active 33317672 September 08, 2014 Entered By: PADMA LONG Comment: hx of ptca to RCA several yrs. agoSeptember 08, 2014 Entered By: PADMA LONG Comment: heart cath 09/01/14, neg. / previous stent to RCA,, via abida meneses ks HATCHER, JENNEY R ROBERT [facility] Diabetes mellitus Active 26919894 PAMELA RAMSEY [facility] Disorder of pancreas Active 7909154 September 08, 2014 Entered By: PADMA LONG Comment: 2.5cm low density lseion in bodyMay 2014 Entered By: PADMA LONG Comment: question of communication with pancreatic ductMay 2014 Entered By: PADMA LONG Comment: favored to be cystic pancreatic cancerMay 2014 Entered By: PADMA LONG Comment: per abdominal CT 09/01/14, via abida meneses,PADMA Pradhan [facility] Dry eyes Active 406079967 NEDA SHAW [facility] Gastro-esophageal reflux disease without esophagitis ( SNOMED CT 398059947) Active 356266516 ALF GUEVARA [facility] History of malignant neoplasm of lung Active 107685348 CHAPO BARRETO [facility] Hyperlipidemia (SNOMED CT 51961285) Active 43205854 BRAULIOPAMELA [facility] Lung mass Active 337767232 September 08, 2014 E ntered By: PADMA [...] bronchogenic adenoca. PADMA LONG [facility] Neoplasm of uncertain behavior of skin of eyelid Active 86232420 KATHERINE MATT [facility] Obesity Active 923571285 [facility] Obstructive sleep apnea syndrome (SNOMED CT 82845865) Active 459739 015 PHILIPPE DOUGLASS [facility] Pancreatic cyst Active 55715364 JAYLENE GUEVARA [facility] Papilloma of right eyelid Active [id number] NEDA SHWA [facility] Polyp of colon Active 95938053 Jan 23 16 Entered By: PADMA LONG Comment: c-scope 01/17/16, multiple benign colonic polypsJun 28, 2017 Entered By: PADMA LONG Comment: c-scope,06/25/17,[facility], three benign polyps- sigmoid colon, transverse colon,cecum. see path report cprs SHARRON TORRES [facility] Pulmonary emphysema Active [id number] [address] [facility] Sensorineural hearing loss, bilateral Active 074611629 CHASTITY JEAN [facility] Snoring Active 55257289 SONG B[facility]OCK [facility] Type 2 diabetes mellitus without complication Active 755870029 NEDA SAHW [facility] Environmental Allergies (ICD-9-CM 477.9) Inactive 477.9 Dec 18, [address] [facility] External hemorrhoids without mention of complication (ICD-9- CM 455.3) Inactive 455.3 Dec 18, 2017 PADMA LONG [facility] Impotence of organic origin (ICD-9-CM 607.84) Inactive 607.84 Dec 18, [address] [facility] Screening for Lipoid disorders (ICD-9-CM V77.91) Inactive V77.91 Jan 18, [address] [facility] Stye * (ICD-9-CM 373.11) Inactive 373.11 Dec 18, 8 Jan 18, 2007 Entered By: PADMA LONG Comment: bilat lower lids, chronic/recurrent PADMA LONG [facility] Tobacco Use Disorder, Continuous Inactive 305.1 [...] ANA CELISIGNER: URGENCY: STATUS: COMPLETED Department of [facility] Artur Teran [address] [place] [address] HERBERTH BOB [address] [place] [address], [address] Nov Dear HERBERTH BOB, The purpose of this letter is to inform you of your test results done recently at the [facility],[place], [place]. Your provider has reviewed your recent [...]
--- OUTSIDE RECORDS SUMMARY | 2019-12-02 13:14 | XMS REPORT | Encounter Summary ---
Author Author Department of [facility] Aff rsHERBERTH Organization [facility] Address [address] [place] [address] Phone Unavailable Care Team Providers Care Propellant Charge Loader Name Role Phone ADRIEL HERNANDEZ PCP Unavailable Insurance Providers: All historical and current No Data Provided for This Section Selected Encounter This section includes the information on [place] at [place] for the Encounter. Date/Time Encounter Type Encounter Description Reason Provider Source Dec 24, 2018 10:11 AM Outpatient Encounter ADMIN PAT ACTIVTIES (CARY[place] NCT) [facility] Encounter Template Text not used [...] 2019 11:00 AM AMBULATORY - [facility] ARTUR BLAS [facility] Jan 31, 2019 09:00 AM AMBULATORY - MEDICINE [facility] Mar 10, 2019 12:30 PM AMBULATORY - SURGERY [facility] Mar 21, 2019 09:15 AM AMBULATORY - NONE [facility] Mar 21, 2019 09:30 AM AMBULATORY - MEDICINE [facility] Mar 21, 2019 09:31 AM AMBULATORY - MEDICINE ARTUR BLAS [facility] Mar 21, 2019 10:00 AM AMBULATORY - MEDICINE [facility] Mar 21, 2019 10:01 AM AMBULATORY - MEDICINE ARTUR BLAS [facility] Mar 26, 2019 10:00 AM AMBULATORY - NONE [facility] Apr 03, 2019 10:00 AM AMBULATORY - SURGERY [facility] Apr 14, 2019 10:00 AM AMBULATORY - SURGERY [facility] Apr 28, 2019 11:00 AM AMBULATORY - NONE [facility] BL[facility] Surgical Procedures: All associated to the encounter [...] % Dec 18, 2018 08:45 AM [facility] COMPREHENSIVE METABOLIC PA KELLE Specimen Type: [...] >60 Dec 18, 2018 08:45 AM [facility] LIPID PROFILE(HDL,TRIG,CHO L,LDL) Specimen Type: PLASMA Comment: For eGFR: eGFR results >60 are imprecise. Many variables affect the calculated result. Interpretation of eGFR results >60 must be monitored over time. CHOLESTEROL 172 mg/dL 0-200 TRIGS 190 mg/dL H 0-150 HDL-CHOLESTEROL 40 mg/dL >40 LDL (CALC) 94 mg/dL 0-99.9 Dec 18, 2018 08:45 AM [facility] PROSTATIC SPECIFIC ANTIGEN (TOTAL) Specimen Type: SERUM No comment entered. PROSTATIC SPECIFIC ANTIGEN(TOTAL) 1.3 ng/mL 0-4 Dec 18, 2018 08:45 AM [facility] HEMOGLOBIN A1C Specimen Type: BLOOD No [...] < 5 ug/mL *MICROALB/CREAT canc mcg/mg cr *PROT/LABOR ECONOMICS PROFESSOR RATIO 0.1 *UR PROTEIN 8 mg/dL [...] place. Date/Time Smoking Status/Tobacco Use Comment [facility] it Nov 23, 2017 09:51 AM CURRENT TOBACCO USER (READY TO QUIT) [facility] Nov 23, 2017 09:51 AM TOBACCO CESSATION REFERRAL DECLINED [facility] Nov 23, 2017 09:51 AM TOBACCO [...] 01, 2005 08:32 AM NON-TOBACCO USER [facility] Advance Directives: All historical and current [...] to adverse reactions to drug (diso rder) [facility] 15 PLAVIX September 08, 2014 Propensity to adverse reactions to drug (diso rder) [facility] 15 Medications: [facility] dispensed (-15 [...] TEST BLOOD GLUCOSE 50 Dec 19, 2019 [id number] September 04, 2019 PAMELA RAMSEY ACCU-CHEK CHARLES PLUS (GLUCOSE) TEST STRIP Discontinued USE 1 STRIP FOR TESTING TWO TIMES PER WEEK - DIRECTED TO TEST BLOOD GLUCOSE 50 Jul 25, 2019 [id number] Nov 12, 2018 PAMELA RAMSEY ALBUTEROL SO4 90MCG/ACTUAT (CFC-F) INHL,ORAL,6.7GM Active INHALE 2 PUFFS BY ORAL INHALATION EVERY 4 HOURS NEEDED FOR BREATHING. SHAKE WELL. RINSE MOUTHPIECE FREQUENTLY TO PREVENT CLOGGING. USE NEEDED FOR SHORTNESS OF AIR/WHEEZING FOR BREATHING. SHAKE WELL. RINSE MOUTHPIECE FREQUENTLY TO PREVENT CLOGGING. USE NEEDED FOR SHORTNESS OF AIR/WHEEZING 1 Dec 19, 2019 [id number] September 04, 2019 PAMELA RAMSEY ALCOHOL PREP PAD Active USE 1 PAD ON SKIN BIW TO CLEAN AND DISINFECT THE SKIN 200 Sep 29, 2020 [id number] Sep 30, 2019 MAURICIO RANKIN ALCOHOL PREP PAD Discontinued USE 1 PAD ON SKIN BI W TO CLEAN AND DISINFECT THE SKIN 200 Dec 19, 2019 [id number] Jun 06, 2019 PAMELA RAMSEY ALCOHOL PREP PAD Discontinued USE 1 PAD ON SKIN BI W TO CLEAN AND DISINFECT THE SKIN 200 Jul 25, 2019 [id number] Nov 12, 2018 PAMELA RAMSEY ASCORBIC ACID 250MG TAB Non-VA TAKE ONE TABLET BY MOUTH ONCE A DAY Non-VA Documented by: SHANIQUA SCHMIDT nted at: [facility] ASPIRIN 25MG/DIPYRIDAMOLE 200MG CAP,SA Active T CHAPIN 1 CAPSULE BY MOUTH TWO TIMES A DAY - SWALLOW WHOLE. DO NOT CRUSH OR CHEW. FOR RECURRENT TIA/STROKE 180 Dec 19, 2019 [id number] Dec 20, 2018 PAMELA RAMSEY ASPIRIN 25MG/DIPYRIDAMOLE 200MG CAP,SA Discontinued T CHAPIN 1 CAPSULE BY MOUTH TWO TIMES A DAY - SWALLOW WHOLE. DO NOT CRUSH OR CHEW. FOR RECURRENT TIA/STROKE 180 Feb 06, 2019 [id number] Sep 28, 2018 ZACHARY GRECO [facility] ASPIRIN 81MG TAB,EC Non- [facility] TAKE ONE TABLET BY MOUTH ONCE A DAY Non-VA Documented by: PADMA LONG nted at: [facility] ATORVASTATIN CA 80MG TAB Active TAKE ONE TABLET BY MOUTH AT BEDTIME FOR CHOLESTEROL - REPORT ANY UNEXPLAINED MUSCLE PAIN/WEAKNESS TO YOUR PROVIDER 90 Dec 19, 2019 [id number] September 04, 2019 PAMELA RAMSEY ATORVASTATIN CA 80MG TAB Discontinued TAKE ONE TABLET BY MOUTH AT BEDTIME FOR CHOLESTEROL - REPORT ANY UNEXPLAINED MUSCLE PAIN/WEAKNESS TO YOUR PROVIDER 90 Dec 20, 2018 [id number] Nov 12, 2018 PAMELA RAMSEY BUDESONIDE 160MCG/FORMOTEROL FUM 4.5MCG/SPRAY INHL,ORAL,10.2 GM Active INHALE 2 PUFFS BY MOUTH TWO TIMES A DAY FOR BREATHING. SHAKE WELL. RINSE MOUTH AND SPIT AFTER EACH USE. 3 Apr 24, 2020 [id number] August 22, 2019 LISSA OATES [facility] CALCIUM/VITAMIN D TAB No n-VA TAKE BY MOUTH ONCE A DAY Non-V A Documented by: PADMA LONG nted at: [facility] CARBOXYMETHYLCELLULOSE NA 0.5% SOLN,OPH Active INSTILL ONE DROP IN BOTH EYES FOUR TIMES A DAY FOR DRY EYES Feb 01, 2020 [id number] September 03 0 NEDA SHAW [facility] DICLOFENAC NA 1% GEL,TOP Discontinued APPLY 2 GRAMS A FFECTED AREA TWO TIMES A DAY NEEDED FOR PAIN AND INFLAMMATION. DO NOT EXCEED 16GM DAILY TO ANY AFFECTED JOINT OF LOWER EXTREMITIES. DO NOT EXCEED 8GM DAILY TO ANY AFFECTED JOINT OF UPPER EXTREMITES. DO NOT EXCEED TOTAL DOSE OF 32GM DAILY FOR ALL JOINTS. 100 Oct 31, 2018 [id number] Oct 06, 2018 ANAYELI KIRKPATRICK [facility] DICLOFENAC NA 1% GEL,TOP APPLY 2 GRAMS A FFECTED AREA TWO TIMES A DAY NEEDED FOR PAIN AND INFLAMMATION. DO NOT EXCEED 16GM DAILY TO ANY AFFECTED JOINT OF LOWER EXTREMITIES. DO NOT EXCEED 8GM DAILY TO ANY AFFECTED JOINT OF UPPER EXTREMITES. DO NOT EXCEED TOTAL DOSE OF 32GM DAILY FOR ALL JOINTS. 100 Jan 17, 2019 [id number] Dec 20, 2018 PAMELA RAMSEY FLUTICASONE PROPIONATE 50MCG/SPRAY SOLN,NASAL,16GM Active INSTILL 1 SPRAY IN EACH NOSTRIL ONCE A DAY SHAKE GENTLY BEFORE USE! - MUST BE USED DIRECTED FOR 3 WEEKS TO PROVIDE BENEFIT. * NO EARLY REFILLS * 1UNIT = 30DAYS AT 4 PF/DAY OR 60DAYS AT 2PF/DAY 2 Dec 19, 2019 [id number] August 26, 2019 PAMELA RAMSEY KETOTIFEN 0.025% SOLN,OPH Active INSTILL 1 DROP IN BOTH EYES TWO TIMES A DAY FOR RELIEF OF ALLERGY SYMPTOMS IN EYE(S) Feb 01, 2020 [id number] September 04, 2019 NEDA SHAW [facility] LANCET,SOFTCLIX Active USE LANCET BIW FOR TESTING BL OOD GLUCOSE DIRECTED Sep 29, 2020 [id number] Sep 30, 2019 MAURICIO RANKIN [facility] LANCET,SOFTCLIX Discontinued USE LANCET BIW FO R TESTING BLOOD GLUCOSE DIRECTED Dec 19, 2019 [id number] Jun 06, 2019 PAMELA RAMSEY LANCET,SOFTCLIX Discontinued USE LANCET BIW FO R TESTING BLOOD GLUCOSE DIRECTED Jul 25, 2019 [id number] Nov 12, 2018 PAMELA RAMSEY LISINOPRIL 40MG TAB Non- [facility] TAKE ONE-HALF TABLET BY MOUTH EVERY MORNING Non-VA Documented by: PAMELA RAMSEY nted at: [facility] LORATADINE/PSEUDOEPHEDRINE TAB,SA Non-VA TAKE BY MOUTH No n-VA Documented by: JUAN LANG nted at: ARTUR BLAS [facility] MAGNESIUM OXIDE 400MG TAB Non-VA TAKE [...] ACID (REPLACES ACIPHEX) 180 Dec 19, 2019 [id number] August 26, 2019 PAMELA RAMSEY POLYETHYLENE GLYCOL [...] Non-VA Documented by: KATHERINE MATT nted at: [facility] PREGABALIN 150MG CAP,ORAL Non-VA TAKE 1 CAPSULE BY MOUTH TWO TIMES A DAY Non-VA Docume nted by: PAMELA RAMSEY nted at: [facility] SEMAGLUTIDE INJ,SOLN Non -VA INJECT SUBCUTANEOUSLY EVERY WEEK Non-VA Documented by: ANAYELI KIRKPATRICK nted at: [facility] TERBINAFINE HCL 1% CREAM,TOP Active APPLY LIGHT LY TO AFFECTED AREA TWO TIMES A DAY FOR INFECTION Sep 23, 2020 [id number] Sep 24, 2019 ADRIEL HERNANDEZ UREA 20% CREAM,TOP Active APPLY LIGHTLY (20%) TO AFFECTED AREA TWO TIMES A DAY NEEDED TO PROMOTE HEALING,RUB IN UNTIL COMPLETELY ABSORBED*FOR TOPICAL USE ONLY* APPLY TO BOTH FEET DIRECTED. 90 Sep 25, 2020 [id number] Sep 26, 2019 ADRIEL HERNANDEZ Problems (Conditions): [...] Alcohol intake above recommended sensible limits Active 806499175 PADMA LONG [facility] Allergic conjunctivitis Active 625608954 NEDA SHAW [facility] Bilateral senile combined form cataracts of eyes Active 29220434211 9108 NEDA SHAW [facility] Bilateral tinnitus Active [id number] CHASTITY JEAN [facility] Coronary arteriosclerosis Active [id number] September 08, 2014 Entered By: PADMA LONG Comment: hx of ptca to RCA several yrs. agoSeptember 08, 2014 Entered By: PADMA LONG Comment: heart cath 09/01/14, neg. / previous stent to RCA,, via abida meneses ks HATCHER, JENNEY R ROBERT [facility] Diabetes mellitus Active 22003917 PAMELA RAMSEY [facility] Disorder of pancreas Active 9084064 September 08, 2014 Entered By: PADMA LONG Comment: 2.5cm low density lseion in bodyMay 2014 Entered By: PADMA LONG Comment: question of communication with pancreatic ductMay 2014 Entered By: PADMA LONG Comment: favored to be cystic pancreatic cancerMay 2014 Entered By: PADMA LONG Comment: per abdominal CT 09/01/14, via abida meneses,PADMA Pradhan [facility] Dry eyes Active 564991659 [facility] SHAW [facility] Gastro-esophageal reflux disease without esophagitis ( SNOMED CT 476714441) Active 868941714 ALF GUEVARA [facility] History of malignant neoplasm of lung Active 908225548 CHAPO BARRETO [facility] Hyperlipidemia (SNOMED CT 28352282) Active 38782468 BRAULIOPAMELA [facility] Lung mass Active 875859260 September 08, 2014 E ntered By: PADMA [...] uncertain behavior of skin of eyelid Active 09124325 KATHERINE MATT [facility] Obesity Active 800875282 [facility] Obstructive sleep apnea syndrome (SNOMED CT 39889896) Active 529555 015 PHILIPPE DOUGLASS [facility] Pancreatic cyst Active 21240364 JAYLENE GUEVARA [facility] Papilloma of right eyelid Active [id number] NEDA SHAW [facility] Polyp of colon Active 61605239 Jan 23 16 Entered By: PADMA LONG Comment: c-scope 01/17/16, multiple benign colonic polypsJun 28, 2017 Entered By: PADMA LONG Comment: c-scope,06/25/17,[facility], three benign polyps- sigmoid colon, transverse colon,cecum. see path report cprs SHARRON TORERS [facility] Pulmonary emphysema Active 24730775 0 BRIANA GAVIN [facility] Sensorineural hearing loss, bilateral Active 459307381 CHASTITY JEAN [facility] Snoring Active 77622522 SONG BULLOCK [facility] Type 2 diabetes mellitus without complication Active 643619090 NEDA SHAW [facility] Environmental Allergies (ICD-9-CM 477.9) Inactive 477.9 Dec 18, 2017 PADMA LONG [facility] External hemorrhoids without mention of complication (ICD-9- CM 455.3) Inactive 455.3 Dec 18, 2017 PADMA LONG [facility] Impotence of organic origin (ICD-9-CM 607.84) Inactive 607.84 Dec 18, 2017 PADMA LONG [facility] Screening for Lipoid disorders (ICD-9-CM V77.91) Inactive V77.91 Jan 18, 2007 [facility] LONG [facility] Stye * (ICD-9-CM 373.11) Inactive [...] 2018 10:11 AM ADMINISTRATIVE NOTE: LOCAL TITLE: [place]-ADMIN [facility] STANDARD TITLE: ADMINISTRATIVE NOTE DATE OF NOTE: DEC 24, 2018@10:11 ENTRY DATE: DEC 24, 2018@10:11:45 AUTHOR: BESSIE BOWERS EXP COSIGNER: URGENCY: STATUS: COMPLETED [facility] Administrative Note: Administrative notes: [facility] called pt to sched A1C appt for late February and pt requested that it can be done when pt has sleep appt in [place] in late february /gisell/ BESSIE [facility] Signed: 12/24/2018 10:14 Receipt Acknowledged By: 12/30/2018 09:14 /gisell/ SHANIQUA DOMINGUEZ RN 12/24/2018 10:32 /gisell/ BESSIE ROCHE OC
--- OUTSIDE RECORDS SUMMARY | 2019-12-02 13:14 | XMS REPORT | Encounter Summary ---
Author Author Department of [facility] rsHERBERTH Organization Department of [facility] Affai rs Address [address] [place] [address] Phone Unavailable Care Team Providers Care Statistical Clerk Name Role Phone ADRIEL HERNANDEZ PCP Unavailable [...] Comments: General Symptoms & Signs ANA CONKLIN [facility] IHE Encounter Template Text not used by [place] Assessments - Encounter Diagnoses This section includes the primary and secondary diag noses documented for the Encounter. Date/Time Primary/Secondary Diagnosis Diagnosis Name Provider Source Dec 24, 2018 01:00 PM PRIMARY Other general symptoms and signs ANA CONKLIN [facility] Plan of Treatment: Future Appointments (+ [...] - MEDICINE [facility] Mar 10, 2019 12:30 PM AMBULATORY - SURG[facility] Mar 21, 2019 09:15 AM AMBULATORY - NONE [facility] Mar 21, 2019 09:30 AM AMBULATORY - MEDICINE [facility] Mar 21, 2019 09:31 AM AMBULATORY - MEDICINE [facility] BLAS [facility] Mar 21, 2019 10:00 AM AMBULATORY - MEDICINE [facility] Mar 21, 2019 10:01 AM AMBULATORY - MEDICINE ARTUR BLAS [facility] Mar 26, 2019 10:00 AM AMBULATORY - NONE [facility] Apr 03, 2019 10:00 AM AMBULATORY - SURGERY [facility] BLAS [facility] Apr 14, 2019 10:00 AM [facility]ORY - [facility] Apr 28, 2019 11:00 AM AMBULATORY - NONE ARTUR BLAS [facility] Surgical Procedures: All associated to the [...] Comment Dec 18, 2018 08:45 AM [facility] CBC & DIFF Specimen Type: BLOOD [...] 0.4 % Dec 18, 2018 08:45 AM [facility] COMPREHENSIVE METABOLIC PA KELLE Specimen Type: [...] EGFR >60 Dec 18, 2018 08:45 AM [facility] LIPID PROFILE(HDL,TRIG,CHO L,LDL) Specimen Type: PLASMA [...] < 5 ug/mL *MICROALB/CREAT canc mcg/mg cr *PROT/TUB WASHER RATIO 0.1 *UR PROTEIN 8 mg/dL *UR [...] YRS OR MORE PORSHA BLAS [facility] Tobacco Use History This section includes a history of the smoking, or tobacco -related health factors, that were collected on or before the date of the Encoun ter. The data comes from the [place] facility where the Encounter took place. Date/Time Smoking Status/Tobacco Use Edu morris Jun 26, 2018 02:13 PM VA-TOBACCO QUIT 15 YRS OR MORE PORSHA BLAS [facility] Jun 27, 2017 01:39 PM NON-TOBACCO USER [facility] Jun 27, 2017 01:16 PM NON-TOBACCO USER [facility] Jan 06, 2015 02:07 PM NON-TOBACCO USER [facility] Nov 23, 2014 10:38 AM NON-TOBACCO USER [facility] Oct 26, 2014 10:36 AM NON-TOBACCO USER [facility] Oct 14, 2014 11:09 AM NON-TOBACCO USER [facility] C Advance Directives: All historical and current [...] (diso rder) [facility] 15 Medications: VA dispensed (-15 months) and Non-VA Documented (Obtained Outside V A) Section Date Range: 1) prescriptions processed by a VA pharmacy in the last [address] [facility], and 2) all medications recorded in the VA medical record as "non-VA medic ations". Pharmacy terms refer to VA pharmacy's work on prescriptions. VA patient s are advised to take their medications as instructed by their health care team. The data comes from all [place] treatment facilities. Glossary of Pharmacy Terms:Active = A prescription that can be filled at the local [place] pharmacy.Active: On Hold = An active prescription [...] TEST BLOOD GLUCOSE 50 Dec 19, 2019 [id number] September 04, 2019 PAMELA RAMSEY CBGUILLERMO ACCU-CHEK CHARLES PLUS (GLUCOSE) TEST STRIP Discontinued USE 1 STRIP FOR TESTING TWO TIMES PER WEEK - DIRECTED TO TEST BLOOD GLUCOSE 50 Jul 25, 2019 [id number] Nov 12, 2018 PAMELA RAMSEY ALBUTEROL SO4 90MCG/ACTUAT (CFC-F) INHL,ORAL,6.7GM Active INHALE 2 PUFFS BY ORAL INHALATION EVERY 4 HOURS NEEDED FOR BREATHING. SHAKE WELL. RINSE MOUTHPIECE FREQUENTLY TO PREVENT CLOGGING. USE NEEDED FOR SHORTNESS OF AIR/WHEEZING FOR BREATHING. SHAKE WELL. RINSE MOUTHPIECE FREQUENTLY TO PREVENT CLOGGING. USE NEEDED FOR SHORTNESS OF AIR/WHEEZING 1 Dec 19, 2019 [id number] September 04, 2019 PAMELA RAMSEY CBGUILLERMO ALCOHOL PREP PAD Active USE 1 PAD ON SKIN BIW TO CLEAN AND DISINFECT THE SKIN Sep 29, 2020 [id number] Sep 30, 2019 MAURICIO RANKIN [facility] ALCOHOL PREP PAD Discontinued USE 1 PAD ON SKIN BI W TO CLEAN AND DISINFECT THE SKIN 200 Dec 19, 2019 [id number] Jun 06, 2019 PAMELA RAMSEY [facility] ALCOHOL PREP PAD Discontinued USE 1 PAD ON SKIN BI W TO CLEAN AND DISINFECT THE SKIN 200 Jul 25, 2019 [id number] Nov 12, 2018 PAMELA RAMSEY ASCORBIC ACID 250MG TAB Non-VA TAKE ONE TABLET BY MOUTH ONCE A DAY Non-VA Documented by: SHANIQUA SCHMIDT nted at: [facility] ASPIRIN 25MG/DIPYRIDAMOLE 200MG CAP,SA Active T CHAPIN 1 CAPSULE BY MOUTH TWO TIMES A DAY - SWALLOW WHOLE. DO NOT CRUSH OR CHEW. FOR RECURRENT TIA/STROKE 180 Dec 19, 2019 [id number] Dec 20, 2018 PAMELA RAMSEY [facility] ASPIRIN 25MG/DIPYRIDAMOLE 200MG CAP,SA Discontinued T CHAPIN 1 CAPSULE BY MOUTH TWO TIMES A DAY - SWALLOW WHOLE. DO NOT CRUSH OR CHEW. FOR RECURRENT TIA/STROKE 180 Feb 06, 2019 [id number] Sep 28, 2018 ZACHARY GRECO [facility] ASPIRIN 81MG TAB,EC Non- VA TAKE ONE TABLET BY MOUTH ONCE A DAY Non-VA Documented by: PADMA LONG nted at: [facility] ATORVASTATIN CA 80MG TAB Active TAKE ONE TABLET BY MOUTH AT BEDTIME FOR CHOLESTEROL - REPORT ANY UNEXPLAINED MUSCLE PAIN/WEAKNESS TO YOUR PROVIDER 90 Dec 19, 2019 [id number] September 04, 2019 PAMELA RAMSEY ATORVASTATIN CA 80MG TAB Discontinued TAKE ONE TABLET BY MOUTH AT BEDTIME FOR CHOLESTEROL - REPORT ANY UNEXPLAINED MUSCLE PAIN/WEAKNESS TO YOUR PROVIDER 90 Dec 20, 2018 [id number] Nov 12, 2018 PAMELA RAMSEY CB BUDESONIDE 160MCG/FORMOTEROL FUM 4.5MCG/SPRAY INHL,ORAL,10.2 GM Active INHALE 2 PUFFS BY MOUTH TWO TIMES A DAY FOR BREATHING. SHAKE WELL. RINSE MOUTH AND SPIT AFTER EACH USE. 3 Apr 24, 2020 [id number] August 22, 2019 LISSA OATES [facility] CALCIUM/VITAMIN D TAB No n-VA TAKE BY MOUTH ONCE A DAY Non-V A Documented by: PADMA LONG nted at: [facility] CARBOXYMETHYLCELLULOSE NA 0.5% SOLN,OPH Active INSTILL ONE DROP IN BOTH EYES FOUR TIMES A DAY FOR DRY EYES 15 Feb 01, 2020 [id number] September 03 0 [facility] DICLOFENAC NA 1% GEL,TOP Discontinued APPLY 2 GRAMS A FFECTED AREA TWO TIMES A DAY NEEDED FOR PAIN AND INFLAMMATION. DO NOT EXCEED 16GM DAILY TO ANY AFFECTED JOINT OF LOWER EXTREMITIES. DO NOT EXCEED 8GM DAILY TO ANY AFFECTED JOINT OF UPPER EXTREMITES. DO NOT EXCEED TOTAL DOSE OF 32GM DAILY FOR ALL JOINTS. 100 Oct 31, 2018 [id number] Oct 06, 2018 ANAYELI KIRKPATRICK Luda Juan M SIMSMila [facility] DICLOFENAC NA 1% GEL,TOP APPLY 2 GRAMS A FFECTED AREA TWO TIMES A DAY NEEDED FOR PAIN AND INFLAMMATION. DO NOT EXCEED 16GM DAILY TO ANY AFFECTED JOINT OF LOWER EXTREMITIES. DO NOT EXCEED 8GM DAILY TO ANY AFFECTED JOINT OF UPPER EXTREMITES. DO NOT EXCEED TOTAL DOSE OF 32GM DAILY FOR ALL JOINTS. 100 Jan 17, 2019 [id number] Dec 20, 2018 PAMELA RAMSEY FLUTICASONE PROPIONATE 50MCG/SPRAY SOLN,NASAL,16GM Active INSTILL 1 SPRAY IN EACH NOSTRIL ONCE A DAY SHAKE GENTLY BEFORE USE! - MUST BE USED DIRECTED FOR 3 WEEKS TO PROVIDE BENEFIT. * NO EARLY REFILLS * 1UNIT = 30DAYS AT 4 PF/DAY OR 60DAYS AT 2PF/DAY 2 Dec 19, 2019 [id number] August 26, 2019 PAMELA RAMSEY KETOTIFEN 0.025% SOLN,OPH Active INSTILL 1 DROP IN BOTH EYES TWO TIMES A DAY FOR RELIEF OF ALLERGY SYMPTOMS IN EYE(S) 10 Feb 01, 2020 [id number] September 04, 2019 [facility] LANCET,SOFTCLIX Active USE LANCET BIW FOR TESTING BL OOD GLUCOSE DIRECTED 100 Sep 29, 2020 [id number] Sep 30, 2019 MAURICIO RANKIN LANCET,SOFTCLIX Discontinued USE LANCET BIW FO R TESTING BLOOD GLUCOSE DIRECTED Dec 19, 2019 [id number] Jun 06, 2019 PAMELA RAMSEY LANCET,SOFTCLIX Discontinued USE LANCET BIW FO R TESTING BLOOD GLUCOSE DIRECTED Jul 25, 2019 [id number] Nov 12, 2018 PAMELA RAMSEY LISINOPRIL 40MG TAB Non- VA TAKE ONE-HALF TABLET BY MOUTH EVERY MORNING Non-VA Documented by: PAMELA RAMSEY nted at: [facility] LORATADINE/PSEUDOEPHEDRINE TAB,SA Non-VA TAKE BY MOUTH No n-VA Documented by: JUAN LANGume nted at: [facility] [place] [facility] MAGNESIUM OXIDE 400MG TAB Non-VA [...] ACID (REPLACES ACIPHEX) 180 Dec 19, 2019 [id number] August 26, 2019 PAMELA RAMSEY POLYETHYLENE GLYCOL [...] by: ANAYELI KIRKPATRICKume nted at: [facility] [place] [facility] TERBINAFINE HCL 1% CREAM,TOP Active APPLY LIGHT LY TO AFFECTED AREA TWO TIMES A DAY FOR INFECTION 90 Sep 23, 2020 [id number] Sep 24, 2019 ADRIEL HERNANDEZ [facility] UREA 20% CREAM,TOP Active APPLY LIGHTLY (20%) TO AFFECTED AREA TWO TIMES A DAY NEEDED TO PROMOTE HEALING,RUB IN UNTIL COMPLETELY ABSORBED*FOR TOPICAL USE ONLY* APPLY TO BOTH FEET DIRECTED. 90 Sep 25, 2020 [id number] Sep 26, 2019 ADRIEL HERNANDEZ CB Problems [...] Alcohol intake above recommended sensible limits Active 171274568 PADMA LONG [facility] Allergic conjunctivitis Active 704332919 COLINNEDA [facility] Bilateral senile combined form cataracts of eyes Active 42689059013 9108 AUGUSTANEDA [facility] Bilateral tinnitus Active [id number] CHASTITY JEAN [facility] Coronary arteriosclerosis Active 80050484 September 08, 2014 Entered By: PADMA LONG Comment: hx of ptca to RCA several yrs. agoSeptember 08, 2014 Entered By: PADMA LONG Comment: heart cath 09/01/14, neg. / previous stent to RCA,, via abida meneses ks HATCHER, JENNEY R ROBERT [facility] Diabetes mellitus Active 40494852 PAMELA RAMSEY [facility] Disorder of pancreas Active 7783479 September 08, 2014 Entered By: PADMA LONG Comment: 2.5cm low density lseion in bodyMay 2014 Entered By: PADMA LONG Comment: question of communication with pancreatic ductMay 2014 Entered By: PADMA LONG Comment: favored to be cystic pancreatic cancerSeptember 08, 2014 Entered By: PADMA LONG Comment: per abdominal CT 09/01/14, via abida meneses ks FRAZIER, JAY J [facility] Dry eyes Active 887758819 NEDA SHAW [facility] Gastro-esophageal reflux disease without esophagitis ( SNOMED CT 364824328) Active 970840461 ALF GUEVARA [facility] History of malignant neoplasm of lung Active 884082874 CHAPO BARRETO [facility] Hyperlipidemia (SNOMED CT 42617831) Active 24409746 BRAULIOPAMELA [facility] Lung mass Active 753608736 September 08, 2014 E ntered By: PADMA LONG Comment: 4.5 cm mass, post. segment right upper lobe.September 08, 2014 Entered By: PADMA LONG Comment: mild adenopathy in mediastinum and bilat. [email or web address] Entered By: PADMA LONG Comment: most likely related to lung cancerMa2014 Entered By: PADMA LONG Comment: per ct angio of chest with contrast 09/01/14,[facility] Entered By: PADMA LONG Comment: per path report- mod. differentiated bronchogenic adenoca. 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 Active 20349970 KATHERINE MATT [facility] Obesity Active 676992311 [facility] Obstructive sleep apnea syndrome (SNOMED CT 64736018) Active 188801 015 [place] DOUGLASS [facility] Pancreatic cyst Active 13010661 JAYLENE GUEVARA [facility] Papilloma of right eyelid Active [id number] NEDA SHAW [facility] Polyp of colon Active 39093457 Jan 23 16 Entered By: PADMA LONG Comment: c-scope 01/17/16, multiple benign colonic polypsJun 28, 2017 Entered By: PADMA LONG Comment: c-scope,06/25/17,[facility], three benign polyps- sigmoid colon, transverse colon,cecum. see path report cprs SHARRON TORRES [facility] Pulmonary emphysema Active 99663963 0 BRIANA [place] [facility] Sensorineural hearing loss, bilateral Active 574257426 CHASTITY JEAN [facility] Snoring Active 30473356 S[facility] BULLOCK [facility] Type 2 diabetes mellitus without complication Active 794753362 NEDA SHAW [facility] Environmental Allergies (ICD-9-CM 477.9) Inactive 477.9 Dec 18, 2017 PADMA LONG [facility] External hemorrhoids without mention of complication (ICD-9- CM 455.3) Inactive 455.3 Dec 18, 2017 [facility] Impotence of organic origin (ICD-9-CM 607.84) Inactive 607.84 Dec 18, 2017 [facility] Screening for Lipoid disorders (ICD-9-CM V77.91) Inactive V77.91 Jan 18, 2007 PADMA LONG [facility] Stye * (ICD-9-CM 373.11) Inactive 373.11 Dec 18, 201 8 Jan 18, 2007 Entered By: PADMA LONG Comment: bilat lower lids, chronic/recurrent [facility] Tobacco Use Disorder, Continuous Inactive 305.1 Dec 18, 2017 Jan 18, 2007 Entered By: PADMA LONG Comment: one ppd PADMA LONG [facility] Radiology Reports: +/- 30 days of [...] COSIGNER: URGENCY: STATUS: COMPLETED [place]-TELEPHONE/SPECIALTY Has ADDENDA Howard phoned clinic to report he has completed [...] about pad replacement. Prosthetics extension provided and Howard transferred via phone. Alerting provider to home traction unit request if deemed appropriate. /gisell/ ANA CONKLIN RN Signed: 12/26/2018 11:34 Receipt Acknowledged By: 01/13/2019 12:01 /gisell/ JANUARY HILLMAN PA-C 01/13/2019 ADDENDUM STATUS: COMPLETED Home traction unit ordered though PT. /gisell/ JANUARY HILLMAN PA-C Signed: 01/13/2019 12:05 Receipt Acknowledged By: * AWAITING SIGNATURE * ANA CONKLIN SARAH L ROBERT J. DOLE [facility]
--- OUTSIDE RECORDS SUMMARY | 2019-12-02 13:17 | XMS REPORT | Encounter Summary ---
Author Author [facility] Address [address] [place] [address] Phone Unavailable Care Team Providers Care Decator Operator Name Role Phone ADRIEL HERNANDEZ PCP [...] Comments: Gastro-esophageal reflux disease without esophagitis ([facility] [id number]) PAMELA RAMSEY [facility] IHE Encounter Template Text not used by [facility] Assessments - Encounter Diagnoses This section includes the primary and secondary diag noses documented for the Encounter. Date/Time Primary/Secondary Diagnosis Diagnosis Name Provider Source Dec 18, 2018 08:52 AM PRIMARY Gastro-esophageal reflux disease without esophagitis CHERRIE JONES [facility] Dec 18, 2018 08:52 AM SECONDARY Mixed hyperlipidemia LOREN JONES [facility] Dec 18, 2018 08:52 AM SECONDARY Obesity, unspecified LOREN JONES [facility] Dec 18, 2018 08:52 AM SECONDARY Type 2 diabetes me llitus with unspecified complications CHERRIE JONES [facility] Plan of Treatment: Future Appointments (+ [...] The data comes from all SD treatment [facility]. Appointment Date/Time Appointment Type Appointment Facili ty Name Jan 06, 2019 11:00 AM AMBULATORY - NONE [facility] Jan 31, 2019 09:00 AM AMBULATORY - MEDICINE [facility] Mar 10, 2019 12:30 PM AMBULATORY - SURGERY [facility] Mar 21, 2019 09:15 AM AMBULATORY - NONE [facility] Mar 21, 2019 09:30 AM AMBULATORY - MEDICINE [facility] Mar 21, 2019 09:31 AM AMBULATORY - MEDICINE [facility] Mar 21, 2019 10:00 AM AMBULATORY - MEDICINE [facility] Mar 21, 2019 10:01 AM AMBULATORY - MEDICINE [facility] Mar 26, 2019 10:00 AM [facility] Apr 03, 2019 10:00 AM [facility] - SURGERY [facility] Apr 14, 2019 10:00 AM AMBULATORY - SURGERY [facility] Apr 28, 2019 11:00 AM AMBULATORY - NONE [facility] Surgical Procedures: All associated to the [...] Dec 18, 2018 08:45 AM [facility] COMPREHENSIVE METABOLIC PA KELLE Specimen Type: [...] < 5 ug/mL *MICROALB/CREAT canc mcg/mg cr *PROT/FLAKE CUTTER OPERATOR RATIO 0.1 *UR PROTEIN 8 mg/dL [...] 3 71 in 225.7 lb 32 [facility] Dec 18, 2018 08:29 AM 3 [...] took place. Date/Time Smoking Status/Tobacco Use Comment [facility] it Nov 23, 2017 09:51 AM CURRENT TOBACCO USER (READY TO QUIT) [facility] Nov 23, 2017 09:51 AM TOBACCO CESSATION REFERRAL DECLINED [facility] Nov 23, 2017 09:51 AM TOBACCO USER OFFERED MEDS [facility] Dec 18, 2016 08:55 AM NON-TOBACCO USER [facility] Dec 01, 2005 08:32 AM CURRENT NON-SMOKER [facility] Dec 01, 2005 08:32 AM LIFETIME NON-SMOKER [facility] Dec 01, 2005 08:32 AM LIFETIME NON-TOBACCO USER [facility] Dec 01, 2005 08:32 AM NON-SMOKER [facility] Dec 01, 2005 08:32 AM NON-TOBACCO [...] and 2) all medications recorded in the SD medical record as "non-VA medic ations". Pharmacy [...] TEST BLOOD GLUCOSE 50 Dec 19, 2019 [id number] September 04, 2019 PAMELA RAMSEY ACCU-CHEK CHARLES PLUS (GLUCOSE) TEST STRIP Discontinued USE 1 STRIP FOR TESTING TWO TIMES PER WEEK - DIRECTED TO TEST BLOOD GLUCOSE 50 Jul 25, 2019 [id number] Nov 12, 2018 PAMELA RAMSEY ALBUTEROL SO4 90MCG/ACTUAT (CFC-F) INHL,ORAL,6.7GM Active INHALE 2 PUFFS BY ORAL INHALATION EVERY 4 HOURS NEEDED FOR BREATHING. SHAKE WELL. RINSE MOUTHPIECE FREQUENTLY TO PREVENT CLOGGING. USE NEEDED FOR SHORTNESS OF AIR/WHEEZING FOR BREATHING. SHAKE WELL. RINSE MOUTHPIECE FREQUENTLY TO PREVENT CLOGGING. USE NEEDED FOR SHORTNESS OF AIR/WHEEZING 1 Dec 19, 2019 [id number] September 04, 2019 PAMELA RAMSEY [facility] ALCOHOL PREP PAD Active USE 1 PAD ON SKIN BIW TO CLEAN AND DISINFECT THE SKIN 200 Sep 29, 2020 [id number] Sep 30, 2019 MAURICIO RANKIN [facility] ALCOHOL PREP PAD Discontinued USE 1 PAD ON SKIN BI W TO CLEAN AND DISINFECT THE SKIN 200 Dec 19, 2019 [id number] Jun 06, 2019 PAMELA RAMSEY CBGUILLERMO ALCOHOL PREP PAD Discontinued USE 1 PAD ON SKIN BI W TO CLEAN AND DISINFECT THE SKIN 200 Jul 25, 2019 [id number] Nov 12, 2018 PAMELA RAMSEY [facility] ASCORBIC ACID 250MG TAB Non-VA TAKE ONE TABLET BY MOUTH ONCE A DAY Non-VA Documented by: SHANIQUA SCHMIDT nted at: [facility] ASPIRIN 25MG/DIPYRIDAMOLE 200MG CAP,SA Active T CHAPIN 1 CAPSULE BY MOUTH TWO TIMES A DAY - SWALLOW WHOLE. DO NOT CRUSH OR CHEW. FOR RECURRENT TIA/STROKE 180 Dec 19, 2019 [id number] Dec 20, 2018 PAMELA RAMSEY [facility] ASPIRIN 25MG/DIPYRIDAMOLE 200MG CAP,SA Discontinued T CHAPIN 1 CAPSULE BY MOUTH TWO TIMES A DAY - SWALLOW WHOLE. DO NOT CRUSH OR CHEW. FOR RECURRENT TIA/STROKE 180 Feb 06, 2019 [id number] Sep 28, 2018 ZACHARY GRECO ASPIRIN 81MG TAB,EC Non- VA TAKE ONE TABLET BY MOUTH ONCE A DAY Non-VA Documented by: PADMA LONG nted at: [facility] ATORVASTATIN CA 80MG TAB Active TAKE ONE TABLET BY MOUTH AT BEDTIME FOR CHOLESTEROL - REPORT ANY UNEXPLAINED MUSCLE PAIN/WEAKNESS TO YOUR PROVIDER 90 Dec 19, 2019 [id number] September 04, 2019 PAMELA RAMSEY ATORVASTATIN CA 80MG TAB Discontinued TAKE ONE TABLET BY MOUTH AT BEDTIME FOR CHOLESTEROL - REPORT ANY UNEXPLAINED MUSCLE PAIN/WEAKNESS TO YOUR PROVIDER 90 Dec 20, 2018 [id number] Nov 12, 2018 PAMELA RAMSEY BUDESONIDE 160MCG/FORMOTEROL FUM 4.5MCG/SPRAY INHL,ORAL,10.2 GM Active INHALE 2 PUFFS BY MOUTH TWO TIMES A DAY FOR BREATHING. SHAKE WELL. RINSE MOUTH AND SPIT AFTER EACH USE. 3 Apr 24, 2020 [id number] August 22, 2019 LISSA OATES [facility] CALCIUM/VITAMIN D TAB No n-VA TAKE BY MOUTH ONCE A DAY Non-V A Documented by: PADMA LONG nted at: [facility] CARBOXYMETHYLCELLULOSE NA 0.5% SOLN,OPH Active INSTILL ONE DROP IN BOTH EYES FOUR TIMES A DAY FOR DRY EYES 15 Feb 01, 2020 [id number] September 03 0 NEDA SHAW [facility] DICLOFENAC NA 1% GEL,TOP Discontinued APPLY 2 GRAMS A FFECTED AREA TWO TIMES A DAY NEEDED FOR PAIN AND INFLAMMATION. DO NOT EXCEED 16GM DAILY TO ANY AFFECTED JOINT OF LOWER EXTREMITIES. DO NOT EXCEED 8GM DAILY TO ANY AFFECTED JOINT OF UPPER EXTREMITES. DO NOT EXCEED TOTAL DOSE OF 32GM DAILY FOR ALL JOINTS. 100 Oct 31, 2018 [id number] Oct 06, 2018 ANAYELI KIRKPATRICK [facility] [...] FOR ALL JOINTS. 100 Jan 17, 2019 [id number] Dec 20, 2018 PAMELA RAMSEY FLUTICASONE PROPIONATE 50MCG/SPRAY SOLN,NASAL,16GM Active INSTILL 1 SPRAY IN EACH NOSTRIL ONCE A DAY SHAKE GENTLY BEFORE USE! - MUST BE USED DIRECTED FOR 3 WEEKS TO PROVIDE BENEFIT. * NO EARLY REFILLS * 1UNIT = 30DAYS AT 4 PF/DAY OR 60DAYS AT 2PF/DAY 2 Dec 19, 2019 [id number] August 26, 2019 PAMELA RAMSEY KETOTIFEN 0.025% SOLN,OPH Active INSTILL 1 DROP IN BOTH EYES TWO TIMES A DAY FOR RELIEF OF ALLERGY SYMPTOMS IN EYE(S) 10 Feb 01, 2020 [id number] September 04, 2019 [facility] SH[facility] LANCET,SOFTCLIX Active USE LANCET BIW FOR TESTING BL OOD GLUCOSE DIRECTED 100 Sep 29, 2020 [id number] Sep 30, 2019 MAURICIO RANKIN [facility] LANCET,SOFTCLIX Discontinued USE LANCET BIW FO R TESTING BLOOD GLUCOSE DIRECTED 100 Dec 19, 2019 [id number] Jun 06, 2019 PAMELA RAMSEY [facility] LANCET,SOFTCLIX Discontinued USE LANCET BIW FO R TESTING BLOOD GLUCOSE DIRECTED Jul 25, 2019 [id number] Nov 12, 2018 PAMELA RAMSEY LISINOPRIL 40MG [...] ACID (REPLACES ACIPHEX) 180 Dec 19, 2019 [id number] August 26, 2019 PAMELA RAMSEY POLYETHYLENE GLYCOL [...] Documented by: KATHERINE MATT Docume nted at: [facility] PREGABALIN 150MG CAP,ORAL Non-VA TAKE 1 CAPSULE BY MOUTH TWO TIMES A DAY Non-VA Docume nted by: PAMELA RAMSEY Docume nted at: [facility] SEMAGLUTIDE INJ,SOLN Non -VA INJECT SUBCUTANEOUSLY EVERY WEEK Non-VA Documented by: ANAYELI KIRKPATRICK Docume nted at: [facility] TERBINAFINE HCL 1% CREAM,TOP Active APPLY LIGHT LY TO AFFECTED AREA TWO TIMES A DAY FOR INFECTION Sep 23, 2020 [id number] Sep 24, 2019 ADRIEL HERNANDEZ UREA 20% CREAM,TOP Active APPLY LIGHTLY (20%) TO AFFECTED AREA TWO TIMES A DAY NEEDED TO PROMOTE HEALING,RUB IN UNTIL COMPLETELY ABSORBED*FOR TOPICAL USE ONLY* APPLY TO BOTH FEET DIRECTED. Sep 25, 2020 [id number] Sep 26, 2019 ADRIEL HERNANDEZ Problems (Conditions): [...] Alcohol intake above recommended sensible limits Active 816192539 [facility] Allergic conjunctivitis Active 351471836 [facility] Bilateral senile combined form cataracts of eyes Active [id number] [facility] Bilateral tinnitus Active [id number] [facility] Coronary arteriosclerosis Active 19410011 September 08, 2014 Entered By: PADMA LONG Comment: hx of ptca to RCA several yrs. agoSeptember 08, 2014 Entered By: PADMA LONG Comment: heart cath 09/01/14, neg. / previous stent to RCA,, [place] KAREN,JENNEY R [facility] Diabetes mellitus Active 13406652 PAMELA RAMSEY [facility] Disorder of pancreas Active 2013367 September 08, 2014 Entered By: PADMA LONG Comment: 2.5cm low density lseion in bodyMay 2014 Entered By: PADMA LONG Comment: question of communication with pancreatic ductMay 2014 Entered By: PADMA LONG Comment: favored to be cystic pancreatic cancerMay 2014 Entered By: PADMA LONG Comment: per abdominal CT 09/01/14, [place] FRAZIER, JAY J [facility] Dry eyes Active 366423488 [facility] Gastro-esophageal reflux disease without esophagitis ( SNOMED CT 020727020) Active 060688080 ALF GUEVARA [facility] History of malignant neoplasm of lung Active 977918007 CHAPO BARRETO [facility] Hyperlipidemia (SNOMED CT 13668698) Active 71393123 BRAULIOPAMELA TOMAS [facility] Lung mass Active 389167430 September 08, 2014 E ntered By: PADMA [...] uncertain behavior of skin of eyelid Active 08501695 KATHERINE MATT [facility] Obesity Active 796476907 SONG BULLOCK [facility] Obstructive sleep apnea syndrome (SNOMED CT 63460728) Active 921197 015 [place] [facility] Pancreatic cyst Active 25942178 JAYLENE GUEVARA [facility] Papilloma of right eyelid Active [id number] NEDA SHAW [facility] Polyp of colon Active 09039098 Jan 23 Entered By: PADMA LONG Comment: c-scope 01/17/16, multiple benign colonic polypsJun 28, 2017 Entered By: PADMA LONG Comment: c-scope,06/25/17,[facility], three benign polyps- sigmoid colon, transverse colon,cecum. see path report cprs SHARRON TORRES [facility] Pulmonary emphysema Active 18676253 0 BRIANA GAVIN [facility] Sensorineural hearing loss, bilateral Active 405085850 CHASTITY JEAN [facility] Snoring Active 08088699 SONG BULLOCK [facility] Type 2 diabetes mellitus without complication Active 575952631 N[facility] SHAW [facility] Environmental Allergies (ICD-9-CM 477.9) Inactive 477.9 Dec 18, 2017 PADMA LONG [facility] External hemorrhoids without mention of complication (ICD-9- CM 455.3) Inactive 455.3 Dec 18, 2017 PADMA LONG [facility] Impotence of organic origin (ICD-9-CM 607.84) Inactive 607.84 Dec 18, 2017 PADMA LONG [facility] Screening for Lipoid disorders (ICD-9-CM V77.91) Inactive V77.91 Jan 18, 2007 PADMA LONG [facility] Stye * (ICD-9-CM 373.11) Inactive 373.11 Dec 18, 201 8 Jan 18, 2007 Entered By: PADMA LONG Comment: bilat lower lids, chronic/recurrent [facility] Tobacco Use Disorder, Continuous Inactive 305.1 Dec 18, 2017 Jan 18, 2007 Entered By: PADMA LONG Comment: one PADMA Yu [facility] Radiology Reports: +/- 30 [...] 2018@08:51 ENTRY DATE: DEC 18, 2018@08:51:45 AUTHOR: PAMEAL RAMSEY COSIGNER: URGENCY: STATUS: COMPLETED MEDICATION RECONCILIATION [...] 08:46 AM NURSE PRACTITIONER NOTE: LOCAL TITLE: WI-DIRECTOR OF OCCUPATIONAL THERAPY/NURSE/CBOC STANDARD TITLE: NURSE PRACTITIONER NOTE DATE OF NOTE: DEC 18, 2018@08:46 ENTRY DATE: DEC 18, 2018@08:46:40 AUTHOR: PAMELA RAMSEY EXP COSIGNER: URGENCY: STATUS: COMPLETED WI-DIRECTOR OF OCCUPATIONAL THERAPY/NURSE/CBOC Has ADDENDA cc:annual HPI:He is inquiring what is next plan of care regarding pain management. He is an active patient with pain management and [facility] advised to contact them. Past Medical/Surgical History: Computerized Problem List is the source for the followin. Gastro-esophageal reflux disease with out 10/20/15 JAYLENE GUEVARA esophagitis (SNOMED CT 406235903) 2. Hyperlipidemia (SNOMED CT 96371108) 12/18/17 PAMELA RAMSEY 3. Diabetes mellitus 12/18/17 PAMELA RAMSEY 4. Coronary arteriosclerosis 03/15/18 KALA JONES hx of ptca to RCA several yrs. ago heart cath 09/01/14, neg. / previous stent to RCA,, [place] 5. 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 Lung mass 09/23/14 PADMA LONG 4.5 cm mass, post. segment right upper lobe. mild adenopathy in mediastinum and bilat. darby most likely related to lung cancer per ct angio of chest with contrast 09/01/14,via [facility] per path report- mod. differentiated bronchogenic adenoca. 7. Pulmonary emphysema 01/17/16 0 8. Alcohol intake above recommended sens ible 09/08/14 PADMA LONG limits 9. Pancreatic cyst 03/17/15 JAYLENE GUEVARA 10. Polyp of colon 06/28/17 SHARRON TORRES c-scope 01/17/16, multiple benign colonic polyps c-scope,06/25/17,[facility], three benign polyps- sigmoid colon, transverse colon,cecum. see path report cprs 11. Obstructive sleep apnea (SNOMED CT 7 3129174) 03/21/18 [place]IL[place]PE [place]OU[place]ASS 12. Snoring 12/27/17 SONG [...] pain 4. GERD 5. Obesity lab pending SD-RT PROVIDER CLINIC: Return to Clinic. /frida RAMSEY Signed: 12/18/2018 08:51 12/19/2018 ADDENDUM STATUS: COMPLETED Labs reviewed A1C 6.7, trigs 190. Forward labs to Reji Hinojosa APRN for diabetic medicaiton adjsutment. Diabetic diet. Repeat A1C 3 months. He remains out of goal. /frida RAMSEY Signed: 12/19/2018 08:07 Receipt Acknowledged By: 12/19/2018 09:47 /gisell/ ANA Camarena [facility] [employer] 12/19/2018 ADDENDUM STATUS: COMPLETED letter sent to pt along with lab results of providers orders. also sent a copy to Ashish Mendoza APRN for review. /gisell/ ANA CELIS [employer] Signed: 12/19/2018 10:00 [facility]A RAMSEY [facility] Dec [...] today? *Required No Are you registered for [employer] (Face to Face Live)? No - Are you interested in registering? No If 'yes' please hand [employer] brochure. [place]-FOOT EXAM (PAVE): Foot Assessment VISUAL [...] denies latex allergy. VISN 15-INFLUENZA IMMUNIZATION : [id number] INFLUENZA IMMUNIZATION V1.0 Vaccine not given: Patient indicated influenza vaccination was received at another facility. Date: December, Exact date is unknown Location: [facility] [place]-DIAG RESULT (PERSON OR PHONE): [...] today. Community resources (If referral -- to [facility]/) ...No When/how to obtain further treatment? ...Yes [...]
--- OUTSIDE RECORDS SUMMARY | 2019-12-02 13:21 | XMS REPORT | Encounter Summary ---
Author Author Department of [facility] Organization [facility] [employer] Aff[facility] Address [address] [place] [address] Phone Unavailable Care Team Providers Care House Repairer Name Role Phone ADRIEL HERNANDEZ PCP Unavailable Insurance Providers: All historical and current No Data Provided for This Section Selected Encounter This section includes the information on record at NH for the Encounter. Date/Time Encounter Type Encounter Description Reason Provider Source Dec 18, 2018 10:00 AM Outpatient Encounter MOVE! PGM INDIV ICD-1 0-CM Z71.3 Dietary counseling and surveillance with Provider Comments: Dietary counseling and surveillance [facility] Encounter Template Text not used by NH Assessments - Encounter Diagnoses This section includes the primary and secondary diag noses documented for the Encounter. Date/Time Primary/Secondary Diagnosis Diagnosis Name Provider Source Dec 18, 2018 11:23 AM PRIMARY Dietary counseling and rain veillance CHERRIE JONES [facility] Dec 18, 2018 11:23 AM SECONDARY Body mass index (BMI) 31.0 -31.9, adult CHERRIE JONES [facility] Dec 18, 2018 11:23 AM SECONDARY Obesity, unspecified LOREN JONES [facility] Plan of Treatment: Future Appointments (+ 6 months) and Future Tests (+/- 45 day s) The Plan of Treatment section includes future care activities for the patient fr om all NH treatment facilities. This section includes future appointments and fu ture orders which are active, pending or scheduled. Future Appointments This section includes appointments that were scheduled t o occur 6 months from the date of the Encounter, up to a maximum of 20 appointme nts. The data comes from all [facility]. Appointment Date/Time Appointment Type Appointment Facili ty Name Jan 06, 2019 11:00 AM AMBULATORY - NONE [facility] Jan 31, 2019 09:00 AM AMBULATORY - MEDICINE [facility] Mar 10, 2019 12:30 PM AMBULATORY - SURGERY [facility] Mar 21, 2019 09:15 AM AMBULATORY - NONE [facility] Mar 21, 2019 09:30 AM AMBULATORY - MEDICINE [facility] Mar 21, 2019 09:31 AM AMBULATORY - MEDICINE ARTUR LaresJuan M SIMSMila [facility] Mar 21, 2019 10:00 AM AMBULATORY - MEDICINE [facility] Mar 21, 2019 10:01 AM AMBULATORY - MEDICINE [facility] BL[facility] Mar 26, 2019 10:00 AM AMBULATORY - NONE [facility] CARRASQUILLONew [facility] Apr 03, 2019 10:00 AM AMBULATORY - SURGERY [facility] Apr 14, 2019 10:00 AM AMBULATORY - SURGERY [facility] Apr 28, 2019 11:00 AM AMBULATORY - NONE [facility] Surgical Procedures: All associated to the encounter No Data Provided for This Section Lab Results: +/- 30 days of the encounter This section includes the Chemistry and Hematology Lab R esults on record with NH for the patient. Radiology Reports and Pathology [...] % Dec 18, 2018 08:45 AM [facility] COMPREHENSIVE METABOLIC PA KELLE Specimen [...] >60 Dec 18, 2018 08:45 AM [facility] LIPID PROFILE(HDL,TRIG,CHO L,LDL) Specimen Type: PLASMA [...] ng/mL 0-4 Dec 18, 2018 08:45 AM [facility] HEMOGLOBIN A1C Specimen Type: BLOOD No [...] < 5 ug/mL *MICROALB/CREAT canc mcg/mg cr *PROT/RETIREMENT SALES CONSULTANT RATIO 0.1 *UR PROTEIN 8 mg/dL *UR [...] and tobacco- related health factors from the NH facility where the Encounter took place. Current Smoking Status This section includes the most current smoking, or tobacco -related health factor, from the NH facility where the Encounter took place. Date/Time Current Smoking Status Comment Facility Jun 26, 2018 02:13 PM VA-TOBACCO QUIT 15 YRS OR MORE PORSHA BLAS [facility] Tobacco Use History This section includes a history of the smoking, or tobacco -related health factors, that were collected on or before the date of the Encoun ter. The data comes from the NH facility where the Encounter took place. Date/Time Smoking Status/Tobacco Use Comment Josseline [facility] Jun 26, 2018 02:13 PM VA-TOBACCO QUIT 15 YRS OR MORE [facility]SHA [facility] Jun 27, 2017 01:39 PM NON-TOBACCO USER [...] 2014 11:09 AM NON-TOBACCO USER [facility] C Advance Directives: All historical [...] to drug (diso rder) [facility] Medications: VA dispensed (-15 months) [...] care team. The data comes from all NH treatment facilities. Glossary of Pharmacy Terms:Active = A prescription that can be filled at the local VA pharmacy.Active: On Hold = An active prescription that will not be filled until pharmacy resolves the issue.Active: Susp = An active prescription that is not scheduled to be filled yet.Clinic Order = A medication received during a visit to a NH clinic or emergency department (currently not available).Discontinued [...] other providers that was filled outside the NH. Or, it may be an over the [...] TEST BLOOD GLUCOSE 50 Dec 19, 2019 [id number] September 04, 2019 PAMELA RAMSEY ACCU-CHEK CHARLES PLUS (GLUCOSE) TEST STRIP Discontinued USE 1 STRIP FOR TESTING TWO TIMES PER WEEK - DIRECTED TO TEST BLOOD GLUCOSE 50 Jul 25, 2019 [id number] Nov 12, 2018 PAMELA RAMSEY [facility] ALBUTEROL SO4 90MCG/ACTUAT (CFC-F) INHL,ORAL,6.7GM Active INHALE 2 PUFFS BY ORAL INHALATION EVERY 4 HOURS NEEDED FOR BREATHING. SHAKE WELL. RINSE MOUTHPIECE FREQUENTLY TO PREVENT CLOGGING. USE NEEDED FOR SHORTNESS OF AIR/WHEEZING FOR BREATHING. SHAKE WELL. RINSE MOUTHPIECE FREQUENTLY TO PREVENT CLOGGING. USE NEEDED FOR SHORTNESS OF AIR/WHEEZING Dec 19, 2019 [id number] September 04, 2019 PAMELA RAMSEY ALCOHOL PREP PAD Active USE 1 PAD ON SKIN BIW TO CLEAN AND DISINFECT THE SKIN 200 Sep 29, 2020 [id number] Sep 30, 2019 MAURICIO RANKIN [facility] ALCOHOL PREP PAD Discontinued USE 1 PAD ON SKIN BI W TO CLEAN AND DISINFECT THE SKIN 200 Dec 19, 2019 [id number] Jun 06, 2019 BRAULIOPAMELA [facility] ALCOHOL PREP PAD Discontinued USE 1 PAD ON SKIN BI W TO CLEAN AND DISINFECT THE SKIN 200 Jul 25, 2019 [id number] Nov 12, 2018 PAMELA RAMSEY [facility] ASCORBIC ACID 250MG TAB Non-VA TAKE ONE TABLET BY MOUTH ONCE A DAY Non-VA Documented by: SHANIQUA SCHMIDT nted at: [facility] ASPIRIN 25MG/DIPYRIDAMOLE 200MG CAP,SA Active T CHAPIN 1 CAPSULE BY MOUTH TWO TIMES A DAY - SWALLOW WHOLE. DO NOT CRUSH OR CHEW. FOR RECURRENT TIA/STROKE 180 Dec 19, 2019 [id number] Dec 20, 2018 PAMELA RAMSEY [facility] ASPIRIN 25MG/DIPYRIDAMOLE 200MG CAP,SA Discontinued T CHAPIN 1 CAPSULE BY MOUTH TWO TIMES A DAY - SWALLOW WHOLE. DO NOT CRUSH OR CHEW. FOR RECURRENT TIA/STROKE 180 Feb 06, 2019 [id number] Sep 28, [address] [facility] ASPIRIN 81MG TAB,EC Non- VA TAKE ONE TABLET BY MOUTH ONCE A DAY Non-VA Documented by: PADMA LONG nted at: [facility] ATORVASTATIN CA 80MG TAB Active TAKE ONE TABLET BY MOUTH AT BEDTIME FOR CHOLESTEROL - REPORT ANY UNEXPLAINED MUSCLE PAIN/WEAKNESS TO YOUR PROVIDER 90 Dec 19, 2019 [id number] September 04, 2019 PAMELA RAMSEY ATORVASTATIN CA 80MG TAB Discontinued TAKE ONE TABLET BY MOUTH AT BEDTIME FOR CHOLESTEROL - REPORT ANY UNEXPLAINED MUSCLE PAIN/WEAKNESS TO YOUR PROVIDER 90 Dec 20, 2018 [id number] Nov 12, 2018 PAMELA RAMSEY [facility] BUDESONIDE 160MCG/FORMOTEROL FUM 4.5MCG/SPRAY INHL,ORAL,10.2 GM Active INHALE 2 PUFFS BY MOUTH TWO TIMES A DAY FOR BREATHING. SHAKE WELL. RINSE MOUTH AND SPIT AFTER EACH USE. 3 Apr 24, 2020 [id number] August 22, 2019 LISSA OATES [facility] CALCIUM/VITAMIN D TAB No n-VA TAKE BY MOUTH ONCE A DAY Non-V A Documented by: PADMA LONG nted at: [facility] CARBOXYMETHYLCELLULOSE NA 0.5% SOLN,OPH Active INSTILL ONE DROP IN BOTH EYES FOUR TIMES A DAY FOR DRY EYES 15 Feb 01, 2020 [id number] September 03 0 [facility] DICLOFENAC NA [...] FOR ALL JOINTS. 100 Oct 31, 2018 [id number] Oct 06, 2018 ANAYELI KIRKPATRICK [facility] DICLOFENAC NA 1% GEL,TOP APPLY 2 GRAMS A FFECTED AREA TWO TIMES A DAY NEEDED FOR PAIN AND INFLAMMATION. DO NOT EXCEED 16GM DAILY TO ANY AFFECTED JOINT OF LOWER EXTREMITIES. DO NOT EXCEED 8GM DAILY TO ANY AFFECTED JOINT OF UPPER EXTREMITES. DO NOT EXCEED TOTAL DOSE OF 32GM DAILY FOR ALL JOINTS. 100 Jan 17, 2019 [id number] Dec 20, 2018 PAMELA RAMSEY FLUTICASONE PROPIONATE 50MCG/SPRAY SOLN,NASAL,16GM Active INSTILL 1 SPRAY IN EACH NOSTRIL ONCE A DAY SHAKE GENTLY BEFORE USE! - MUST BE USED DIRECTED FOR 3 WEEKS TO PROVIDE BENEFIT. * NO EARLY REFILLS * 1UNIT = 30DAYS AT 4 PF/DAY OR 60DAYS AT 2PF/DAY 2 Dec 19, 2019 [id number] August 26, 2019 PAMELA RAMSEY KETOTIFEN 0.025% SOLN,OPH Active INSTILL 1 DROP IN BOTH EYES TWO TIMES A DAY FOR RELIEF OF ALLERGY SYMPTOMS IN EYE(S) Feb 01, 2020 [id number] September 04, 2019 [facility] LANCET,SOFTCLIX Active USE LANCET BIW FOR TESTING BL OOD GLUCOSE DIRECTED 100 Sep 29, 2020 [id number] Sep 30, 2019 [facility]IC[facility]ANK[facility] LANCET,SOFTCLIX Discontinued USE LANCET BIW FO R TESTING BLOOD GLUCOSE DIRECTED Dec 19, 2019 [id number] Jun 06, 2019 PAMELA RAMSEY LANCET,SOFTCLIX Discontinued USE LANCET BIW FO R TESTING BLOOD GLUCOSE DIRECTED 100 Jul 25, 2019 [id number] Nov 12, 2018 PAMELA RAMSEY LISINOPRIL 40MG TAB Non- VA TAKE ONE-HALF TABLET BY MOUTH EVERY MORNING Non-VA Documented by: PAMELA RAMSEY nted at: [facility] LORATADINE/PSEUDOEPHEDRINE TAB,SA Non-VA TAKE BY MOUTH No n-VA Documented by: JUAN LANGume nted at: [facility] MAGNESIUM OXIDE 400MG TAB Non-VA TAKE [...] ACID (REPLACES ACIPHEX) 180 Dec 19, 2019 [id number] August 26, 2019 PAMELA RAMSEY POLYETHYLENE GLYCOL [...] Non-VA Documented by: KATHERINE MATT nted at: [facility] PREGABALIN 150MG [...] DAY FOR INFECTION 90 Sep 23, 2020 [id number] Sep 24, 2019 [facility]Z [facility] UREA 20% CREAM,TOP Active APPLY LIGHTLY (20%) TO AFFECTED AREA TWO TIMES A DAY NEEDED TO PROMOTE HEALING,RUB IN UNTIL COMPLETELY ABSORBED*FOR TOPICAL USE ONLY* APPLY TO BOTH FEET DIRECTED. 90 Sep 25, 2020 [id number] Sep 26, 2019 [facility] Problems (Conditions): All historical and current Section Date Range: From patient's date of to the date document was create d. This section includes a list of Problems (Conditions) know n to [facility] for the patient. It includes both active and inacti ve problems (conditions). The data comes from all NH treatment facilities. Problem Status Problem Code Date of Onset Date of Resolution Comm ent(s) Provider Source Alcohol intake above recommended sensible limits Active 954115544 PADMA LONG [facility] Allergic conjunctivitis Active 780925325 [place] [facility] Bilateral senile combined form cataracts of eyes Active [id number] 9108 [facility]uda [facility] Bilateral tinnitus Active [id number] CHASTITY JEAN [facility] Coronary arteriosclerosis Active 20683546 September 08, 2014 Entered By: PADMA LONG Comment: hx of ptca to RCA several yrs. agoSeptember 08, 2014 Entered By: PADMA LONG Comment: heart cath 09/01/14, neg. / previous stent to RCA,, via abida meneses ks HATCHER[facility] Diabetes mellitus Active 78672307 PAMELA RAMSEY [facility] Disorder of pancreas Active 7461983 September 08, 2014 Entered By: PADMA LONG Comment: 2.5cm low density lseion in bodyMay 2014 Entered By: PADMA LONG Comment: question of communication with pancreatic ductMay 2014 Entered By: PADMA LONG Comment: favored to be cystic pancreatic cancerMay 2014 Entered By: PADMA LONG Comment: per abdominal CT 09/01/14, via abida meneseswy PADMA LONG Juan M [facility] Dry eyes Active 022347749 NEDA SHAW [facility] Gastro-esophageal reflux disease without esophagitis ( SNOMED CT 986249282) [facility]8031163 [facility] History of malignant neoplasm of lung Active 718414101 CHAPO BARRETO [facility] Hyperlipidemia (SNOMED CT 55088313) Active 88379085 PAMELA RAMSEY [facility] Lung mass Active 016248932 September 08, 2014 E ntered By: PADMA [...] report- mod. differentiated bronchogenic adenoca. 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 Active 45465073 KATHERINE MATT [facility] Obesity Active 699155039 SONG BULLOCK [facility] Obstructive sleep apnea syndrome (SNOMED CT 97704591) Active 653851 015 [place] [facility] Pancreatic cyst Active 90135530 JAYLENE GUEVARA [facility] Papilloma of right eyelid Active 591296338216143 NEDA SHAW [facility] Polyp of colon Active 59126601 Jan 23 16 Entered By: PADMA LONG Comment: c-scope 01/17/16, multiple benign colonic polypsMar 2017 Entered By: PADMA LONG Comment: c-scope,06/25/17,[facility], three benign polyps- sigmoid colon, transverse colon,cecum. see path report cprs SHARRON TORRES MO THAYER [facility] Pulmonary emphysema Active 57806328 0 BRIANA LESLYE [facility] Sensorineural hearing loss, bilateral Active 048009012 TEDCHASTITY Nicol [facility] Snoring Active 13853280 SONG BULLOCK [facility] Type 2 diabetes mellitus without complication Active 569453158 COLINNEDA Luda [facility] Environmental Allergies (ICD-9-CM 477.9) Inactive 477.9 Dec 18, 2017 PADMA LONG [facility] External hemorrhoids without mention of complication (ICD-9- CM 455.3) Inactive 455.3 Dec 18, 2017 PADMA LONG [facility] Impotence of organic origin (ICD-9-CM 607.84) Inactive 607.84 Dec 18, 2017 PADMA LONG [facility] Screening for Lipoid disorders (ICD-9-CM V77.91) Inactive V77.91 Jan 18, 2007 [facility] Stye * (ICD-9-CM 373.11) Inactive 373.11 Dec 18 8 Jan 18, 2007 Entered By: PADMA LONG Comment: bilat lower lids, chronic/recurrent PADMA LONG [facility] Tobacco Use Disorder, Continuous Inactive 305.1 [...] 2018 11:24 AM MOVE NOTE: LOCAL TITLE: TX-WEIGHT MANAGEMENT/MOVE! OUTPATIENT INDIVIDUAL STANDARD TITLE: MOVE NOTE [...] profile: Hemoglobin A1C(HgbA1C) Subjective Data: Patient in [place] states: He's really been under a lot [...] CLINICAL DIETITIAN Signed: 12/18/2018 11:41 GARY HARRINGTON [facility]
--- OUTSIDE RECORDS SUMMARY | 2019-12-02 13:21 | XMS REPORT ---
Author Author Department [facility] HERBERTH kline Organization Department of [facility] Address [address] [place] [address] Phone Unavailable Care Team Providers Care Seed Tester Name Role Phone ADRIEL HERNANDEZ PCP Unavailable Insurance Providers: All historical and current No Data Provided for This Section Selected Encounter This section includes the information on record at [place] for the Encounter. Date/Time Encounter Type Encounter Description Reason Provider Source Dec 13, 2018 01:11 PM Outpatient Encounter [facility] 15 IHE Encounter Template Text not used by [place] Assessments - Encounter Diagnoses No Data Provided [...] appointme nts. The data comes from all [place] treatment facilities. Appointment Date/Time Appointment Type Appointment Facili ty Name Dec 18, 2018 09:00 AM AMBULATORY - MEDICINE [facility] Dec 18, 2018 10:00 AM AMBULATORY - NONE [facility] Dec 18, 2018 10:01 AM AMBULATORY - NONE [facility] Jan 06, 2019 11:00 AM AMBULATORY - NONE [facility] C Jan 31, 2019 09:00 AM AMBULATORY - MEDICINE [facility] Mar 10, 2019 12:30 PM AMBULATORY - SURGERY [facility] Mar 21, 2019 09:15 AM AMBULATORY - [...] AMBULATORY - SURGERY [facility] Apr 28, 2019 11:00 AM AMBULATORY - [...] 0.4 % Dec 18, 2018 08:45 AM [facility] COMPREHENSIVE METABOLIC PA KELLE Specimen Type: PLASMA [...] EGFR >60 Dec 18, 2018 08:45 AM [facility] LIPID PROFILE(HDL,TRIG,CHO L,LDL) Specimen Type: PLASMA Comment: For eGFR: eGFR results >60 are imprecise. Many variables affect the calculated result. Interpretation of eGFR results >60 must be monitored over time. CHOLESTEROL 172 mg/dL 0-200 TRIGS 190 mg/dL H 0-150 HDL-CHOLESTEROL 40 mg/dL >40 LDL (CALC) 94 mg/dL 0-99.9 Dec 18, 2018 08:45 AM [facility] PROSTATIC SPECIFIC ANTIGEN (TOTAL) Specimen [...] Negative Negative Dec 18, 2018 08:45 AM [facility] MICROALBUMIN (ANANT,WI) RANDO M URINE Specimen Type: URINE Comment: Microalbumin is below the linearity of the instrument, unable to calculate the albumin/creatinine ratio. *MICROALBUMIN,RAND < 5 ug/mL *MICROALB/CREAT canc mcg/mg cr *PROT/MANUFACTURING GROUP LEADER RATIO 0.1 *UR PROTEIN 8 mg/dL *UR [...] (diso rder) [facility], VISN 15 Medications: VA dispensed (-15 months) and Non-VA Documented (Obtained Outside V A) Section Date Range: 1) prescriptions processed by a VA pharmacy in the last 15 m [facility], and 2) all medications recorded in the VA medical record as "non-VA medic ations". Pharmacy terms refer to VA pharmacy's work on prescriptions. VA patient s are advised to take their medications as instructed by their health care team. The data comes from all [place] treatment facilities. Glossary of Pharmacy Terms:Active = A prescription that can be filled at the local [place] pharmacy.Active: On Hold = An active prescription [...] other providers that was filled outside the [place]. Or, it may be an over the [...] TEST BLOOD GLUCOSE 50 Dec 19, 2019 [id number] September 04, 2019 PAMELA RAMSEY ACCU-CHEK CHARLES PLUS (GLUCOSE) TEST STRIP Discontinued USE 1 STRIP FOR TESTING TWO TIMES PER WEEK - DIRECTED TO TEST BLOOD GLUCOSE 50 Jul 25, 2019 [id number] Nov 12, 2018 PAMELA RAMSEY ALBUTEROL SO4 90MCG/ACTUAT (CFC-F) INHL,ORAL,6.7GM Active INHALE 2 PUFFS BY ORAL INHALATION EVERY 4 HOURS NEEDED FOR BREATHING. SHAKE WELL. RINSE MOUTHPIECE FREQUENTLY TO PREVENT CLOGGING. USE NEEDED FOR SHORTNESS OF AIR/WHEEZING FOR BREATHING. SHAKE WELL. RINSE MOUTHPIECE FREQUENTLY TO PREVENT CLOGGING. USE NEEDED FOR SHORTNESS OF AIR/WHEEZING 1 Dec 19, 2019 [id number] September 04, 2019 [facility]ELA RAMSEY [facility] ALCOHOL PREP PAD Active USE 1 PAD ON SKIN BIW TO CLEAN AND DISINFECT THE SKIN 200 Sep 29, 2020 [id number] Sep 30, 2019 MAURICIO RANKIN [facility] ALCOHOL PREP PAD Discontinued USE 1 PAD ON SKIN BI W TO CLEAN AND DISINFECT THE SKIN 200 Dec 19, 2019 [id number] Jun 06, 2019 [facility] RAM[facility] ALCOHOL PREP PAD Discontinued USE 1 PAD ON SKIN BI W TO CLEAN AND DISINFECT THE SKIN 200 Jul 25, 2019 [id number] Nov 12, 2018 [facility]ELA RAMSE[facility] ASCORBIC ACID 250MG TAB Non-VA TAKE ONE TABLET BY MOUTH ONCE A DAY Non-VA Documented by: SHANIQUA SCHMIDT nted at: [facility] ASPIRIN 25MG/DIPYRIDAMOLE 200MG CAP,SA Active T CHAPIN 1 CAPSULE BY MOUTH TWO TIMES A DAY - SWALLOW WHOLE. DO NOT CRUSH OR CHEW. FOR RECURRENT TIA/STROKE 180 Dec 19, 2019 [id number] Dec 20, 2018 [facility] ASPIRIN 25MG/DIPYRIDAMOLE 200MG CAP,SA Discontinued T CHAPIN 1 CAPSULE BY MOUTH TWO TIMES A DAY - SWALLOW WHOLE. DO NOT CRUSH OR CHEW. FOR RECURRENT TIA/STROKE 180 Feb 06, 2019 [id number] Sep 28, 2018 ZACHARY GRECO ASPIRIN 81MG TAB,EC Non- VA TAKE ONE TABLET BY MOUTH ONCE A DAY Non-VA Documented by: PADMA LONG nted at: [facility] ATORVASTATIN CA 80MG TAB Active TAKE ONE TABLET BY MOUTH AT BEDTIME FOR CHOLESTEROL - REPORT ANY UNEXPLAINED MUSCLE PAIN/WEAKNESS TO YOUR PROVIDER 90 Dec 19, 2019 [id number] September 04, 2019 PAMELA RAMSEY ATORVASTATIN CA 80MG TAB Discontinued TAKE ONE TABLET BY MOUTH AT BEDTIME FOR CHOLESTEROL - REPORT ANY UNEXPLAINED MUSCLE PAIN/WEAKNESS TO YOUR PROVIDER 90 Dec 20, 2018 [id number] Nov 12, 2018 PAMELA RAMSEY BUDESONIDE 160MCG/FORMOTEROL FUM 4.5MCG/SPRAY INHL,ORAL,10.2 GM Active INHALE 2 PUFFS BY MOUTH TWO TIMES A DAY FOR BREATHING. SHAKE WELL. RINSE MOUTH AND SPIT AFTER EACH USE. 3 Apr 24, 2020 [id number] August 22, 2019 [facility] CALCIUM/VITAMIN D TAB No n-VA TAKE BY MOUTH ONCE A DAY Non-V A Documented by: PADMA LONG nted at: [facility] CARBOXYMETHYLCELLULOSE NA 0.5% SOLN,OPH Active INSTILL ONE DROP IN BOTH EYES FOUR TIMES A DAY FOR DRY EYES 15 Feb 01, 2020 [id number] September 03 0 [facility] DICLOFENAC NA 1% GEL,TOP Discontinued APPLY 2 GRAMS A FFECTED AREA TWO TIMES A DAY NEEDED FOR PAIN AND INFLAMMATION. DO NOT EXCEED 16GM DAILY TO ANY AFFECTED JOINT OF LOWER EXTREMITIES. DO NOT EXCEED 8GM DAILY TO ANY AFFECTED JOINT OF UPPER EXTREMITES. DO NOT EXCEED TOTAL DOSE OF 32GM DAILY FOR ALL JOINTS. 100 Oct 31, 2018 [id number] Oct 06, 2018 ANAYELI KIRKPATRICK [facility] DICLOFENAC NA 1% GEL,TOP APPLY 2 GRAMS A FFECTED AREA TWO TIMES A DAY NEEDED FOR PAIN AND INFLAMMATION. DO NOT EXCEED 16GM DAILY TO ANY AFFECTED JOINT OF LOWER EXTREMITIES. DO NOT EXCEED 8GM DAILY TO ANY AFFECTED JOINT OF UPPER EXTREMITES. DO NOT EXCEED TOTAL DOSE OF 32GM DAILY FOR ALL JOINTS. 100 Jan 17, 2019 [id number] Dec 20, 2018 PAMELA RAMSEY FLUTICASONE PROPIONATE 50MCG/SPRAY SOLN,NASAL,16GM Active INSTILL 1 SPRAY IN EACH NOSTRIL ONCE A DAY SHAKE GENTLY BEFORE USE! - MUST BE USED DIRECTED FOR 3 WEEKS TO PROVIDE BENEFIT. * NO EARLY REFILLS * 1UNIT = 30DAYS AT 4 PF/DAY OR 60DAYS AT 2PF/DAY 2 Dec 19, 2019 [id number] August 26, 2019 PAMELA RAMSEY KETOTIFEN 0.025% SOLN,OPH Active INSTILL 1 DROP IN BOTH EYES TWO TIMES A DAY FOR RELIEF OF ALLERGY SYMPTOMS IN EYE(S) 10 Feb 01, 2020 [id number] September 04, 2019 [facility] LANCET,SOFTCLIX Active USE LANCET BIW FOR TESTING BL OOD GLUCOSE DIRECTED 100 Sep 29, 2020 [id number] Sep 30, 2019 CHUCHOPAMELLA [facility]oyd [facility] LANCET,SOFTCLIX Discontinued USE LANCET BIW FO R TESTING BLOOD GLUCOSE DIRECTED 100 Dec 19, 2019 [id number] Jun 06, 2019 [facility] LANCET,SOFTCLIX Discontinued USE LANCET BIW FO R TESTING BLOOD GLUCOSE DIRECTED 100 Jul 25, 2019 [id number] Nov 12, 2018 PAMELA RAMSEY LISINOPRIL 40MG TAB Non- VA TAKE ONE-HALF TABLET BY MOUTH EVERY MORNING Non-VA Documented by: PAMELA RAMSEY nted at: [facility] LORATADINE/PSEUDOEPHEDRINE TAB,SA Non-VA TAKE BY MOUTH No n-VA Documented by: JUAN LANG nted at: [facility] MAGNESIUM OXIDE 400MG TAB [...] ACID (REPLACES ACIPHEX) 180 Dec 19, 2019 [id number] August 26, 2019 PAMELA RAMSEY POLYETHYLENE GLYCOL [...] Documented by: KATHERINE MATT Docume nted at: [facility] PREGABALIN 150MG CAP,ORAL Non-VA TAKE 1 CAPSULE BY MOUTH TWO TIMES A DAY Non-VA Docume nted by: PAMELA RAMSEY Docume nted at: [facility] SEMAGLUTIDE INJ,SOLN Non -VA INJECT SUBCUTANEOUSLY EVERY WEEK Non-VA Documented by: ANAYELI KIRKPATRICK Docume nted at: [facility] TERBINAFINE HCL 1% CREAM,TOP Active APPLY LIGHT LY TO AFFECTED AREA TWO TIMES A DAY FOR INFECTION Sep 23, 2020 [id number] Sep 24, 2019 ADRIEL HERNANDEZ UREA 20% CREAM,TOP Active APPLY LIGHTLY (20%) TO AFFECTED AREA TWO TIMES A DAY NEEDED TO PROMOTE HEALING,RUB IN UNTIL COMPLETELY ABSORBED*FOR TOPICAL USE ONLY* APPLY TO BOTH FEET DIRECTED. Sep 25, 2020 [id number] Sep 26, 2019 ADRIEL HERNANDEZ Problems (Conditions): [...] Alcohol intake above recommended sensible limits Active 445168712 PADMA LONG [facility] Allergic conjunctivitis Active 567306472 [place] [facility] Bilateral senile combined form cataracts of eyes Active 54907114144 9108 [place] [facility] Bilateral tinnitus Active [id number] CHASTITY JEAN [facility] Coronary arteriosclerosis Active [id number] September 08, 2014 Entered By: PADMA LONG Comment: hx of ptca to RCA several yrs. 2014 Entered By: PADMA LONG Comment: heart cath 5/12/15, neg. / previous stent to RCA,, via abida meneses ks HATCHER, JENNEY R [facility] Diabetes mellitus Active 80143020 BRAULIOPAMELA TOMAS [facility] Disorder of pancreas Active 1956822 September 08, 2014 Entered By: PADMA LONG Comment: 2.5cm low density lseion in bodyMay 2014 Entered By: PADMA LONG Comment: question of communication with pancreatic ductMay 2014 Entered By: PADMA LONG Comment: favored to be cystic pancreatic cancerMay 2014 Entered By: PADMA LONG Comment: per abdominal CT 09/01/14, via abida meneses ks FRAZIER, JAY J [facility] Dry eyes Active 428933292 [facility] Gastro-esophageal reflux disease without esophagitis ( SNOMED CT 686485985) Active 032516597 ALF GUEVARA [facility] History of malignant neoplasm of lung Active 693506768 CHAPO BARRETO [facility] Hyperlipidemia (SNOMED CT 41140163) Active 73780821 PAMELA RAMSEY [facility] Lung mass Active 116575914 September 08, 2014 E ntered By: PADMA [...] report- mod. differentiated bronchogenic adenoca. 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 Active 56563684 KATHERINE MATT [facility] Obesity Active 831640148 [facility] Obstructive sleep apnea syndrome (SNOMED CT 00822119) Active 218467 015 [place] ARTUR [facility] Pancreatic cyst Active 06972935 JAYLENE GUEVARA [facility] Papilloma of right eyelid Active [id number] [facility] Polyp of colon Active 93344103 Jan 23 Entered By: PADMA LONG Comment: c-scope 01/17/16, multiple benign colonic polypsJun 28, 2017 Entered By: PADMA LONG Comment: c-scope,06/25/17,[facility], three benign polyps- sigmoid colon, transverse colon,cecum. see path report cprs SHARRON TORRES [facility] Pulmonary emphysema Active 99948196 0 BRIANA GAVIN Juan M [facility] Sensorineural hearing loss, bilateral Active 011964659 CHASTITY JEAN [facility] Snoring Active 28933558 [facility] Type 2 diabetes mellitus without complication Active 590290526 [facility] Environmental Allergies (ICD-9-CM 477.9) Inactive 477.9 Dec 18, 2017 PADMA LONG [facility] External hemorrhoids without mention of complication (ICD-9- CM 455.3) Inactive 455.3 Dec 18, 2017 PADMA LONG [facility] Impotence of organic origin (ICD-9-CM 607.84) Inactive 607.84 Dec 18, 2017 PADMA LONG [facility] Screening for Lipoid disorders (ICD-9-CM V77.91) Inactive V77.91 Jan 18, 2007 [facility] Stye * (ICD-9-CM 373.11) Inactive 373.11 Dec 18, 201 8 Jan 18, 2007 Entered By: PADMA LONG Comment: bilat lower lids, chronic/recurrent [facility] Tobacco Use Disorder, Continuous [...] DOMINGUEZ RN 12/13/2018 13:58 /gisell/ RAZ QUIROZ [facility]
--- OUTSIDE RECORDS SUMMARY | 2019-12-02 13:21 | XMS REPORT ---
Author Author Department [facility] HERBERTH kline Organization Department of [facility] Address [address] [place] [address] Phone Unavailable Care Team Providers Care Wind Tunnel Engineer Name Role Phone ADRIEL HERNANDEZ PCP Unavailable Insurance Providers: All historical and current No Data Provided for This Section Selected Encounter This section includes the information on record at [place] for the Encounter. Date/Time Encounter Type Encounter Description Reason Provider Source Dec 17, 2018 09:18 AM Outpatient Encounter COMMUNITY CARE CONSULT [facility] 15 IHE Encounter Template Text not used by [place] Assessments - Encounter Diagnoses No Data Provided [...] data comes from all [place] treatment facilities. Appointment Date/Time Appointment Type Appointment Facili ty Name Dec 18, 2018 09:00 AM AMBULATORY - MEDICINE [facility] Dec 18, 2018 10:00 AM AMBULATORY - NONE [facility] Dec 18, 2018 10:01 AM AMBULATORY - NONE [facility] Jan 06, 2019 11:00 AM AMBULATORY - NONE [facility] C Jan 31, 2019 09:00 AM AMBULATORY - MEDICINE [facility] Mar 10, 2019 12:30 PM AMBULATORY - SURGERY [facility] Mar 21, 2019 09:15 AM AMBULATORY - NONE [facility] Mar 21, 2019 09:30 AM AMBULATORY - MEDICINE [facility] Mar 21, 2019 09:31 AM AMBULATORY - MEDICINE ARTUR TERAN [facility] Mar 21, 2019 10:00 AM AMBULATORY - MEDICINE [facility] Mar 21, 2019 10:01 AM AMBULATORY - MEDICINE ARTUR TERAN V [facility] Mar 26, 2019 10:00 AM AMBULATORY - NONE [facility] C Apr 03, 2019 10:00 AM AMBULATORY - SURGERY ARTUR CARRASQUILLO Apr 14, 2019 10:00 AM AMBULATORY - SURGERY [facility] Apr 28, 2019 11:00 AM AMBULATORY [...] Range Comment Dec 18, 2018 08:45 AM [facility] CBC & DIFF Specimen [...] 0.4 % Dec 18, 2018 08:45 AM Authentic Response COMPREHENSIVE METABOLIC PA KELLE Specimen Type: PLASMA [...] EGFR >60 Dec 18, 2018 08:45 AM Authentic Response LIPID PROFILE(HDL,TRIG,CHO L,LDL) Specimen Type: PLASMA Comment: For eGFR: eGFR results >60 are imprecise. Many variables affect the calculated result. Interpretation of eGFR results >60 must be monitored over time. CHOLESTEROL 172 mg/dL 0-200 TRIGS 190 mg/dL H 0-150 HDL-CHOLESTEROL 40 mg/dL >40 LDL (CALC) 94 mg/dL 0-99.9 Dec 18, 2018 08:45 AM Cass Art [facility] PROSTATIC SPECIFIC ANTIGEN (TOTAL) [...] Negative Negative Dec 18, 2018 08:45 AM Authentic ResponseOC MICROALBUMIN (ANANT,WI) RANDO M URINE Specimen Type: URINE Comment: Microalbumin is below the linearity of the instrument, unable to calculate the albumin/creatinine ratio. *MICROALBUMIN,RAND < 5 ug/mL *MICROALB/CREAT canc mcg/mg cr *PROT/HOTEL ENGINEER RATIO 0.1 *UR PROTEIN 8 mg/dL *UR [...] patient. The data comes from a [facility] treatment facilities. It does not list Allergies/ADRs that were removed or entered in error. Some allergies/ADRs may be reported in t he Immunization section. Allergen Event Date Event Type Reaction(s) Severity Source BRILINTA September 08, 2014 Propensity to adverse reactions to drug (diso rder) [facility] 15 PLAVIX September 08, 2014 Propensity to adverse reactions to drug (diso rder) [facility] Medications: VA [...] TEST BLOOD GLUCOSE 50 Dec 19, 2019 [id number] September 04, 2019 PAMELA RAMSEY ACCU-CHEK CHARLES PLUS (GLUCOSE) TEST STRIP Discontinued USE 1 STRIP FOR TESTING TWO TIMES PER WEEK - DIRECTED TO TEST BLOOD GLUCOSE 50 Jul 25, 2019 [id number] Nov 12, 2018 PAMELA RAMSEY ALBUTEROL SO4 90MCG/ACTUAT (CFC-F) INHL,ORAL,6.7GM Active INHALE 2 PUFFS BY ORAL INHALATION EVERY 4 HOURS NEEDED FOR BREATHING. SHAKE WELL. RINSE MOUTHPIECE FREQUENTLY TO PREVENT CLOGGING. USE NEEDED FOR SHORTNESS OF AIR/WHEEZING FOR BREATHING. SHAKE WELL. RINSE MOUTHPIECE FREQUENTLY TO PREVENT CLOGGING. USE NEEDED FOR SHORTNESS OF AIR/WHEEZING 1 Dec 19, 2019 [id number] September 04, 2019 PAMELA RAMSEY [facility] ALCOHOL PREP PAD Active USE 1 PAD ON SKIN BIW TO CLEAN AND DISINFECT THE SKIN 200 Sep 29, 2020 [id number] Sep 30, 2019 MAURICIO RANKIN [facility] ALCOHOL PREP PAD Discontinued USE 1 PAD ON SKIN BI W TO CLEAN AND DISINFECT THE SKIN 200 Dec 19, 2019 [id number] Jun 06, 2019 PAMELA RAMSEY [facility] ALCOHOL PREP PAD Discontinued USE 1 PAD ON SKIN BI W TO CLEAN AND DISINFECT THE SKIN 200 Jul 25, 2019 [id number] Nov 12, 2018 [facility]AMELA RAMSEY [facility] ASCORBIC ACID 250MG TAB Non-VA TAKE ONE TABLET BY MOUTH ONCE A DAY Non-VA Documented by: SHANIQUA SCHMIDT nted at: [facility] ASPIRIN 25MG/DIPYRIDAMOLE 200MG CAP,SA Active T CHAPIN 1 CAPSULE BY MOUTH TWO TIMES A DAY - SWALLOW WHOLE. DO NOT CRUSH OR CHEW. FOR RECURRENT TIA/STROKE 180 Dec 19, 2019 [id number] Dec 20, 2018 [facility] ASPIRIN 25MG/DIPYRIDAMOLE 200MG CAP,SA Discontinued T CHAPIN 1 CAPSULE BY MOUTH TWO TIMES A DAY - SWALLOW WHOLE. DO NOT CRUSH OR CHEW. FOR RECURRENT TIA/STROKE 180 Feb 06, 2019 [id number] Sep 28, 2018 ZACHARY GRECO ASPIRIN 81MG TAB,EC Non- VA TAKE ONE TABLET BY MOUTH ONCE A DAY Non-VA Documented by: PADMA LONG nted at: [facility] ATORVASTATIN CA 80MG TAB Active TAKE ONE TABLET BY MOUTH AT BEDTIME FOR CHOLESTEROL - REPORT ANY UNEXPLAINED MUSCLE PAIN/WEAKNESS TO YOUR PROVIDER 90 Dec 19, 2019 [id number] September 04, 2019 PAMELA RAMSEY ATORVASTATIN CA 80MG TAB Discontinued TAKE ONE TABLET BY MOUTH AT BEDTIME FOR CHOLESTEROL - REPORT ANY UNEXPLAINED MUSCLE PAIN/WEAKNESS TO YOUR PROVIDER 90 Dec 20, 2018 [id number] Nov 12, 2018 PAMELA RAMSEY BUDESONIDE 160MCG/FORMOTEROL FUM 4.5MCG/SPRAY INHL,ORAL,10.2 GM Active INHALE 2 PUFFS BY MOUTH TWO TIMES A DAY FOR BREATHING. SHAKE WELL. RINSE MOUTH AND SPIT AFTER EACH USE. 3 Apr 24, 2020 [id number] August 22, 2019 [facility] CALCIUM/VITAMIN D TAB No n-VA TAKE BY MOUTH ONCE A DAY Non-V A Documented by: PADMA LONG nted at: [facility] CARBOXYMETHYLCELLULOSE NA 0.5% SOLN,OPH Active INSTILL ONE DROP IN BOTH EYES FOUR TIMES A DAY FOR DRY EYES 15 Feb 01, 2020 [id number] September 03 0 [facility] DICLOFENAC NA 1% GEL,TOP Discontinued APPLY 2 GRAMS A FFECTED AREA TWO TIMES A DAY NEEDED FOR PAIN AND INFLAMMATION. DO NOT EXCEED 16GM DAILY TO ANY AFFECTED JOINT OF LOWER EXTREMITIES. DO NOT EXCEED 8GM DAILY TO ANY AFFECTED JOINT OF UPPER EXTREMITES. DO NOT EXCEED TOTAL DOSE OF 32GM DAILY FOR ALL JOINTS. 100 Oct 31, 2018 [id number] Oct 06, 2018 ANAYELI KIRKPATRICK [facility] DICLOFENAC NA 1% GEL,TOP APPLY 2 GRAMS A FFECTED AREA TWO TIMES A DAY NEEDED FOR PAIN AND INFLAMMATION. DO NOT EXCEED 16GM DAILY TO ANY AFFECTED JOINT OF LOWER EXTREMITIES. DO NOT EXCEED 8GM DAILY TO ANY AFFECTED JOINT OF UPPER EXTREMITES. DO NOT EXCEED TOTAL DOSE OF 32GM DAILY FOR ALL JOINTS. 100 Jan 17, 2019 [id number] Dec 20, 2018 PAMELA RAMSEY FLUTICASONE PROPIONATE 50MCG/SPRAY SOLN,NASAL,16GM Active INSTILL 1 SPRAY IN EACH NOSTRIL ONCE A DAY SHAKE GENTLY BEFORE USE! - MUST BE USED DIRECTED FOR 3 WEEKS TO PROVIDE BENEFIT. * NO EARLY REFILLS * 1UNIT = 30DAYS AT 4 PF/DAY OR 60DAYS AT 2PF/DAY 2 Dec 19, 2019 [id number] August 26, 2019 PAMELA RAMSEY KETOTIFEN 0.025% SOLN,OPH Active INSTILL 1 DROP IN BOTH EYES TWO TIMES A DAY FOR RELIEF OF ALLERGY SYMPTOMS IN EYE(S) 10 Feb 01, 2020 [id number] September 04, 2019 [facility] LANCET,SOFTCLIX Active USE LANCET BIW FOR TESTING BL OOD GLUCOSE DIRECTED 100 Sep 29, 2020 [id number] Sep 30, 2019 CHUCHOPAMELLA FAUSTINLloyd [facility] LANCET,SOFTCLIX Discontinued USE LANCET BIW FO R TESTING BLOOD GLUCOSE DIRECTED 100 Dec 19, 2019 [id number] Jun 06, 2019 [facility] LANCET,SOFTCLIX Discontinued USE LANCET BIW FO R TESTING BLOOD GLUCOSE DIRECTED 100 Jul 25, 2019 [id number] Nov 12, 2018 PAMELA RAMSEY LISINOPRIL 40MG TAB Non- VA TAKE ONE-HALF TABLET BY MOUTH EVERY MORNING Non-VA Documented by: PAMELA RAMSEY nted at: [facility] LORATADINE/PSEUDOEPHEDRINE TAB,SA Non-VA TAKE BY MOUTH No n-VA Documented by: JUAN LANG nted at: [facility] TERAN [facility] [...] ACID (REPLACES ACIPHEX) 180 Dec 19, 2019 [id number] August 26, 2019 PAMELA RAMSEY POLYETHYLENE GLYCOL [...] Documented by: KATHERINE MATT Docume nted at: [facility] PREGABALIN 150MG CAP,ORAL Non-VA TAKE 1 CAPSULE BY MOUTH TWO TIMES A DAY Non-VA Docume nted by: PAMELA RAMSEY Docume nted at: [facility] SEMAGLUTIDE INJ,SOLN Non -VA INJECT SUBCUTANEOUSLY EVERY WEEK Non-VA Documented by: ANAYELI KIRKPATRICK Docume nted at: [facility] TERBINAFINE HCL 1% CREAM,TOP Active APPLY LIGHT LY TO AFFECTED AREA TWO TIMES A DAY FOR INFECTION Sep 23, 2020 [id number] Sep 24, 2019 ADRIEL HERNANDEZ UREA 20% CREAM,TOP Active APPLY LIGHTLY (20%) TO AFFECTED AREA TWO TIMES A DAY NEEDED TO PROMOTE HEALING,RUB IN UNTIL COMPLETELY ABSORBED*FOR TOPICAL USE ONLY* APPLY TO BOTH FEET DIRECTED. Sep 25, 2020 [id number] Sep 26, 2019 ADRIEL HERNANDEZ Problems (Conditions): [...] Alcohol intake above recommended sensible limits Active 601370399 PADMA LONG [facility] Allergic conjunctivitis Active 167112498 LYNDONVILLENEDA [facility] Bilateral senile combined form cataracts of eyes Active 18983634402 9108 COLINNEDA [facility] Bilateral tinnitus Active 4442278649037 CHASTITY JEAN [facility] Coronary arteriosclerosis Active 29013448 September 08, 2014 Entered By: PADMA LONG Comment: hx of ptca to RCA several yrs. 2014 Entered By: PADMA LONG Comment: heart cath 5/12/15, neg. 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 Gastro-esophageal reflux disease without esophagitis ( SNOMED CT 521137702) Active 239634554 ALF GUEVARA [facility] History of malignant neoplasm of lung Active 314639149 CHAPO BARRETO [facility] Hyperlipidemia (SNOMED CT 72913813) Active 60358991 PAMELA RAMSEY [facility] Lung mass Active 210165387 September 08, 2014 E ntered By: PADMA LONG Comment: 4.5 cm mass, post. segment right upper lobe.September 08, 2014 Entered By: PADMA LONG Comment: mild adenopathy in mediastinum and bilat. hilaMay 2014 Entered By: PADMA LONG Comment: most likely related to lung cancerMa2014 Entered By: PADMA LONG Comment: per ct angio of chest with contrast 09/01/14,via abida meneseskyJun 2014 Entered By: PADMA LONG Comment: per path report- mod. differentiated bronchogenic adenoca. 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 Pancreatic cyst Active 49891510 JAYLENE GUEVARA [facility] Papilloma of right eyelid Active 947114263180916 [facility] Polyp of colon Active 12655541 Jan 23 Entered By: PADMA LONG Comment: c-scope 01/17/16, multiple benign colonic polypsJun 28, 2017 Entered By: PADMA LONG Comment: c-scope,06/25/17,[facility], three benign polyps- sigmoid colon, transverse colon,cecum. see path report cprs SHARRON TORRES [facility] Pulmonary emphysema Active 52285629 0 BRIANA GAVIN Juan M [facility] Sensorineural hearing loss, bilateral Active 521709494 CHASTITY JEAN [facility] Snoring Active 15356904 SONG BULLOCK [facility] Type 2 diabetes mellitus without complication Active 021666936 [facility] SHAW [facility] Environmental Allergies (ICD-9-CM 477.9) Inactive 477.9 Dec 18, [address] [facility] External hemorrhoids without mention of complication (ICD-9- CM 455.3) Inactive 455.3 Dec 18, [address] [facility] Impotence of organic origin (ICD-9-CM 607.84) Inactive 607.84 Dec 18, 2017 PADMA LONG [facility] Screening for Lipoid disorders (ICD-9-CM V77.91) Inactive V77.91 Jan 18, 2007 [facility] Stye * (ICD-9-CM 373.11) Inactive 373.11 Dec 18, 201 8 Jan 18, 2007 Entered By: PADMA LONG Comment: bilat lower lids, chronic/recurrent [facility] [...] Centered Community Care (PC3) Program Department of [facility] Choice Approval for Medical Care [...] which the disclosure was made. [Ref. 38 [facility] 7332(b)(2)(H)(ii)] The information is b eing disclosed by [place] only for the treatment and care of the named patient in the health record. Accounting of disclosure must be maintained when required. Referral Urgency: Routine Indicate time frame for appointment: Clinically Indicated Date (GUNNER): Dec Category of Care/Type of Specialty: CARDIOLOGY Type of Specialist: STEEL HANGER Type of Service/Procedure: [facility] Office of Community Care - Standardized Episode [...] can be made on behalf of the [place] 10. Follow-up visits for this episode of care 11. Cardiac rehabilitation, up to 36 visits, no more than 3x per week *Please visit the [facility] Storefront [email or web address].gov/COMMUNITYCARE/[email or web address]/index.asp for additional resources and requirements pertaining to the following Pharmacy prescribing requirements Durable Medical Equipment (DME), Prosthetics, and Orthotics prescribing requirements Precertification (PRCT) process requirements Request for Services (RFS) requirements Number of Visits, Frequency, and Duration: Duration: 180 days [place] or [facility] Preferred Provider Name and Contact Information: Eligibility Verification: As the authorized [place] patient access representative, I hereby confirm that the is eligible for Community Care services. The 's basic eligibility was verified on Nov. Contact the Facility Community Care Office first to provide information to the VA or to reach a VA ordering provider. All contact from the contractor will be documented in the [place]'s record by the [facility] community Care and the VA provider will be notified for awareness. Report all Critical Findings related to this authorization to the issuing office below. All other questions regarding this authorization should be directed to: [phone] [id number] Facility: [facility] Office of Community Care (OCC) Contact: [facility] Office of Community Care (OCC) Behavioral Pediatrician or Equivalent: Name: Yaw Weldon Title: Nurse Behavioral Pediatrician [facility] Contact Number (Normal Business Hours): [phone] AOD/Emergency Contact After Hours Number: [phone] From Station Number: [id number] Facility Name: Artur Teran [facility] [address] Address: [address] City: [place]: [place] Zip: [address] Information: Name: HERBERTH BOB JR : Jan SSN: [id number] Address: [address] [place] [address] In accordance with 38 CFR 17.3363-8846, [place] will pay for non-VA hospital care and medical services that are authorized by [place] for Veterans who are determined by [place] to meet the Veterans Choice Program eligibility criteria set forth by section 101 of the Act and 38 CFR 17.1510 and any other eligibility standards that may apply to particular services (such as health care for newborns of Veterans under 38 CFR 17.38(a)(xiv) and dental benefits under 17.160-17.169). /gisell/ ARTIE PUTNAM [facility] Signed: 12/17/2018 09:20 ARTIE PUTNAM [facility]
--- OUTSIDE RECORDS SUMMARY | 2019-12-02 13:22 | XMS REPORT | Encounter Summary ---
Author Author [facility] Address [address] [place] [address] Phone Unavailable Care Team Providers Care Roller Maker Name Role Phone ADRIEL HERNANDEZ PCP Unavailable Insurance Providers: All historical and current No Data Provided for This Section Selected Encounter This section includes the information on record at [place] for the Encounter. Date/Time Encounter Type Encounter Description Reason Provider Source Dec 05, 2018 12:04 PM Outpatient Encounter TELEPHONE BY STAFF ICD-10-CM I25.10 [place] heart disease of [place] coronary artery w/o jaden muñoz with Provider Comments: Atherosclerotic Heart Disease of [place] Coronary Artery without Angina Pectoris KALA JONES [facility] IHE Encounter Template Text not used by [place] Assessments - Encounter Diagnoses This section includes the primary and secondary diag noses documented for the Encounter. Date/Time Primary/Secondary Diagnosis Diagnosis Name Provider Source Dec 05, 2018 12:04 PM PRIMARY Athscl heart disea se [place] coronary artery w/o jaden pctKALA Hammond [facility] Plan of Treatment: Future Appointments (+ [...] appointme nts. The data comes from all [facility]. Appointment Date/Time Appointment Type Appointment Facili ty Name Dec 18, 2018 09:00 AM AMBULATORY - MEDICINE [facility] Dec 18, 2018 10:00 AM AMBULATORY [facility] NONE [facility] Dec 18, 2018 10:01 AM AMBULATORY - NONE [facility] Jan 06, 2019 11:00 AM AMBULATORY - NONE [facility] Jan 31, 2019 09:00 AM AMBULATORY - MEDICINE [facility] Mar 10, 2019 12:30 PM AMBULATORY - SURGERY [facility] Mar 21, 2019 09:15 AM AMBULATORY - NONE [facility] Mar 21, 2019 09:30 AM AMBULATORY - MEDICINE [facility] Mar 21, 2019 09:31 AM AMBULATORY - MEDICINE ARTUR LaresJuan M SIMSMila [facility] Mar 21, 2019 10:00 AM AMBULATORY - MEDICINE [facility] Mar 21, 2019 10:01 AM AMBULATORY - MEDICINE ARTUR LaresJuan M [facility] Mar 26, 2019 10:00 AM AMBULATORY - NONE [facility] Apr 03, 2019 10:00 AM AMBULATORY - SURGERY ARTUR BLAS [facility] Apr 14, 2019 10:00 AM AMBULATORY - SURGERY [facility] Apr 28, 2019 11:00 AM AMBULATORY - NONE ART[facility] BLAS [facility] Surgical Procedures: All associated to the [...] % Dec 18, 2018 08:45 AM [place] [facility] COMPREHENSIVE METABOLIC PA KELLE Specimen Type: [...] >60 Dec 18, 2018 08:45 AM [place] LIPID PROFILE(HDL,TRIG,CHO L,LDL) Specimen Type: PLASMA [...] ng/mL 0-4 Dec 18, 2018 08:45 AM [facility] HEMOGLOBIN A1C Specimen Type: BLOOD No [...] < 5 ug/mL *MICROALB/CREAT canc mcg/mg cr *PROT/STRATEGIC MARKETING SPECIALIST RATIO 0.1 *UR PROTEIN 8 mg/dL [...] or tobacco -related health factor, from the [place] facility where the Encounter took place. Date/Time Current Smoking Status Comment Facility Jun 26, 2018 02:13 PM VA-TOBACCO QUIT 15 YRS OR MORE [facility] Tobacco Use History This section includes a history of the smoking, or tobacco -related health factors, that were collected on or before the date of the Encoun ter. The data comes from the [place] facility where the Encounter took place. Date/Time Smoking Status/Tobacco Use Comment [facility] Jun 26, 2018 02:13 PM VA-TOBACCO QUIT 15 YRS OR MORE [facility] Jun 27, 2017 01:39 PM NON-TOBACCO [...] patient. The data comes from a [facility] treatment facilities. It does not list Allergies/ADRs that were removed or entered in error. Some allergies/ADRs may be reported in t Immunization section. Allergen Event Date Event Type Reaction(s) Severity Source [place] September 08, 2014 Propensity to adverse reactions to drug (diso rder) [facility], [facility] 15 PLAV[place] September 08, 2014 Propensity to adverse reactions to drug (diso rder) [facility] Medications: VA dispensed [...] TEST BLOOD GLUCOSE 50 Dec 19, 2019 [id number] September 04, 2019 PAMELA RAMSEY ACCU-CHEK CHARLES PLUS (GLUCOSE) TEST STRIP Discontinued USE 1 STRIP FOR TESTING TWO TIMES PER WEEK - DIRECTED TO TEST BLOOD GLUCOSE 50 Jul 25, 2019 [id number] Nov 12, 2018 PAMELA RAMSEY CB ALBUTEROL SO4 90MCG/ACTUAT (CFC-F) INHL,ORAL,6.7GM Active INHALE 2 PUFFS BY ORAL INHALATION EVERY 4 HOURS NEEDED FOR BREATHING. SHAKE WELL. RINSE MOUTHPIECE FREQUENTLY TO PREVENT CLOGGING. USE NEEDED FOR SHORTNESS OF AIR/WHEEZING FOR BREATHING. SHAKE WELL. RINSE MOUTHPIECE FREQUENTLY TO PREVENT CLOGGING. USE NEEDED FOR SHORTNESS OF AIR/WHEEZING 1 Dec 19, 2019 [id number] September 04, 2019 PAMELA RAMSEY ALCOHOL PREP PAD Active USE 1 PAD ON SKIN BIW TO CLEAN AND DISINFECT THE SKIN 200 Sep 29, 2020 [id number] Sep 30, 2019 [facility]URICIO RANKIN [facility] ALCOHOL PREP PAD Discontinued USE 1 PAD ON SKIN BI W TO CLEAN AND DISINFECT THE SKIN 200 Dec 19, 2019 [id number] Jun 06, 2019 PAMELA RAMSEY CBGUILLERMO ALCOHOL PREP PAD Discontinued USE 1 PAD ON SKIN BI W TO CLEAN AND DISINFECT THE SKIN 200 Jul 25, 2019 [id number] Nov 12, 2018 PAMELA RAMSEY ASCORBIC ACID 250MG TAB Non-VA TAKE ONE TABLET BY MOUTH ONCE A DAY Non-VA Documented by: SHANIQUA SCHMIDT nted at: [facility] ASPIRIN 25MG/DIPYRIDAMOLE 200MG CAP,SA Active T CHAPIN 1 CAPSULE BY MOUTH TWO TIMES A DAY - SWALLOW WHOLE. DO NOT CRUSH OR CHEW. FOR RECURRENT TIA/STROKE 180 Dec 19, 2019 [id number] Dec 20, 2018 [facility] ASPIRIN 25MG/DIPYRIDAMOLE 200MG CAP,SA Discontinued T CHAPIN 1 CAPSULE BY MOUTH TWO TIMES A DAY - SWALLOW WHOLE. DO NOT CRUSH OR CHEW. FOR RECURRENT TIA/STROKE 180 Feb 06, 2019 [id number] Sep 28, 2018 ZACHARY GRECO [facility] ASPIRIN 81MG TAB,EC Non- VA TAKE ONE TABLET BY MOUTH ONCE A DAY Non-VA Documented by: PADMA LONG nted at: [facility] ATORVASTATIN CA 80MG TAB Active TAKE ONE TABLET BY MOUTH AT BEDTIME FOR CHOLESTEROL - REPORT ANY UNEXPLAINED MUSCLE PAIN/WEAKNESS TO YOUR PROVIDER 90 Dec 19, 2019 [id number] September 04, 2019 PAMELA RAMSEY ATORVASTATIN CA 80MG TAB Discontinued TAKE ONE TABLET BY MOUTH AT BEDTIME FOR CHOLESTEROL - REPORT ANY UNEXPLAINED MUSCLE PAIN/WEAKNESS TO YOUR PROVIDER 90 Dec 20, 2018 [id number] Nov 12, 2018 PAMELA RAMSEY BUDESONIDE 160MCG/FORMOTEROL FUM 4.5MCG/SPRAY INHL,ORAL,10.2 GM Active INHALE 2 PUFFS BY MOUTH TWO TIMES A DAY FOR BREATHING. SHAKE WELL. RINSE MOUTH AND SPIT AFTER EACH USE. 3 Apr 24, 2020 [id number] August 22, 2019 LISSA OATES [facility] CALCIUM/VITAMIN D TAB No n-VA TAKE BY MOUTH ONCE A DAY Non-V A Documented by: PADMA LONG nted at: [facility] CARBOXYMETHYLCELLULOSE NA 0.5% SOLN,OPH Active INSTILL ONE DROP IN BOTH EYES FOUR TIMES A DAY FOR DRY EYES 15 Feb 01, 2020 [id number] September 03 0 [facility] DICLOFENAC NA 1% GEL,TOP Discontinued APPLY 2 GRAMS A FFECTED AREA TWO TIMES A DAY NEEDED FOR PAIN AND INFLAMMATION. DO NOT EXCEED 16GM DAILY TO ANY AFFECTED JOINT OF LOWER EXTREMITIES. DO NOT EXCEED 8GM DAILY TO ANY AFFECTED JOINT OF UPPER EXTREMITES. DO NOT EXCEED TOTAL DOSE OF 32GM DAILY FOR ALL JOINTS. 100 Oct 31, 2018 [id number] Oct 06, 2018 ANAYELI KIRKPATRICK [facility] DICLOFENAC NA 1% GEL,TOP APPLY 2 GRAMS A FFECTED AREA TWO TIMES A DAY NEEDED FOR PAIN AND INFLAMMATION. DO NOT EXCEED 16GM DAILY TO ANY AFFECTED JOINT OF LOWER EXTREMITIES. DO NOT EXCEED 8GM DAILY TO ANY AFFECTED JOINT OF UPPER EXTREMITES. DO NOT EXCEED TOTAL DOSE OF 32GM DAILY FOR ALL JOINTS. 100 Jan 17, 2019 [id number] Dec 20, 2018 [facility] RAMSE[facility] FLUTICASONE PROPIONATE 50MCG/SPRAY SOLN,NASAL,16GM Active INSTILL 1 SPRAY IN EACH NOSTRIL ONCE A DAY SHAKE GENTLY BEFORE USE! - MUST BE USED DIRECTED FOR 3 WEEKS TO PROVIDE BENEFIT. * NO EARLY REFILLS * 1UNIT = 30DAYS AT 4 PF/DAY OR 60DAYS AT 2PF/DAY 2 Dec 19, 2019 [id number] August 26, 2019 PAMELA RAMSEY KETOTIFEN 0.025% SOLN,OPH Active INSTILL 1 DROP IN BOTH EYES TWO TIMES A DAY FOR RELIEF OF ALLERGY SYMPTOMS IN EYE(S) Feb 01, 2020 [id number] September 04, 2019 [facility] LANCET,SOFTCLIX Active USE LANCET BIW FOR TESTING BL OOD GLUCOSE DIRECTED 100 Sep 29, 2020 [id number] Sep 30, 2019 [facility] LANCET,SOFTCLIX Discontinued USE LANCET BIW FO R TESTING BLOOD GLUCOSE DIRECTED 100 Dec 19, 2019 [id number] Jun 06, 2019 PAMELA RAMSEY LANCET,SOFTCLIX Discontinued USE LANCET BIW FO R TESTING BLOOD GLUCOSE DIRECTED 100 Jul 25, 2019 [id number] Nov 12, 2018 PAMELA RAMSEY LISINOPRIL 40MG TAB Non- [place] TAKE ONE-HALF TABLET BY MOUTH EVERY MORNING Non-VA Documented by: PAMELA RAMSEY nted at: [facility] LORATADINE/PSEUDOEPHEDRINE TAB,SA Non-VA TAKE BY MOUTH No n-VA Documented by: JUAN LANGume nted at: [facility] MAGNESIUM OXIDE 400MG TAB Non-VA TAKE [...] ACID (REPLACES ACIPHEX) 180 Dec 19, 2019 [id number] August 26, 2019 PAMELA RAMSEY POLYETHYLENE GLYCOL [...] Non-VA Documented by: KATHERINE MATT nted at: [facility] PREGABALIN 150MG CAP,ORAL Non-VA TAKE 1 CAPSULE BY MOUTH TWO TIMES A DAY Non-VA Docume nted by: PAMELA RAMSEY nted at: [facility] SEMAGLUTIDE INJ,SOLN Non -VA INJECT SUBCUTANEOUSLY EVERY WEEK Non-VA Documented by: ANAYELI KIRKPATRICK nted at: [facility] BL[facility] TERBINAFINE HCL 1% CREAM,TOP Active APPLY LIGHT LY TO AFFECTED AREA TWO TIMES A DAY FOR INFECTION 90 Sep 23, 2020 [id number] Sep 24, 2019 ADRIEL HERNANDEZ UREA 20% CREAM,TOP Active APPLY LIGHTLY (20%) TO AFFECTED AREA TWO TIMES A DAY NEEDED TO PROMOTE HEALING,RUB IN UNTIL COMPLETELY ABSORBED*FOR TOPICAL USE ONLY* APPLY TO BOTH FEET DIRECTED. 90 Sep 25, 2020 [id number] Sep 26, 2019 ADRIEL HERNANDEZ Problems (Conditions): [...] Alcohol intake above recommended sensible limits Active 036704584 PADMA LONG [facility] Allergic conjunctivitis Active 432474459 LAURYS STATIONNEDA [facility] Bilateral senile combined form cataracts of eyes Active 46104600816 9108 LA[address] STATIONNEDA [facility] Bilateral tinnitus Active 1465060888956 CHASTITY JEAN [facility] Coronary arteriosclerosis Active 43123064 September 08, 2014 Entered By: PADMA LONG Comment: hx of ptca to RCA several yrs. agoSeptember 08, 2014 Entered By: PADMA LONG Comment: heart cath 09/01/14, neg. / previous stent to RCA,, [place] HATCHER, JENNEY R ROBERT [facility] Diabetes mellitus Active 60904427 PAMELA RAMSEY [facility] Disorder of pancreas Active 7486409 September 08, 2014 Entered By: PADMA LONG Comment: 2.5cm low density lseion in bodyMay 2014 Entered By: PADMA LONG Comment: question of communication with pancreatic ductMay 2014 Entered By: PADMA LONG Comment: favored to be cystic pancreatic cancerMay 2014 Entered By: PADMA LONG Comment: per abdominal CT 09/01/14, [place] PADMA LONG [facility] Dry eyes Active 795406005 NEDA SHAW [facility] Gastro-esophageal reflux disease without esophagitis ( SNOMED CT 953388298) Active 353953752 ALF GUEVARA [facility] History of malignant neoplasm of lung Active 313125851 CHAPO BARRETO [facility] Hyperlipidemia (SNOMED CT 93123376) Active 87306898 PAMELA RAMSEY [facility] Lung mass Active 731282887 September 08, 2014 E ntered By: PADMA LONG Comment: 4.5 cm mass, post. segment right upper lobe.September 08, 2014 Entered By: PADMA LONG Comment: mild adenopathy in mediastinum and bilat. hilaMay 2014 Entered By: PADMA LONG Comment: most likely related to lung cancerMay 2014 Entered By: PADMA LONG Comment: per ct angio of chest with contrast 09/01/14,[place] Entered By: PADMA LONG Comment: per path report- mod. differentiated bronchogenic adenoca. 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 Active 48619603 KATHERINE MATT [facility] Obesity Active 241295478 [facility] Obstructive sleep apnea syndrome (SNOMED CT 13952323) Active 112553 015 PHIILPPE DOUGLASS [facility] Pancreatic cyst Active 79693691 JAYLENE GUEVARA [facility] Papilloma of right eyelid Active [id number] NEDA SAHW [facility] Polyp of colon Active 34900438 Jan 23 Entered By: PADMA LONG Comment: c-scope 01/17/16, multiple benign colonic polypsMar 2017 Entered By: PADMA LONG Comment: c-scope,06/25/17,pr-formerly [facility], three benign polyps- sigmoid colon, transverse colon,cecum. see path report cprs SHARRON TORRES [facility] Pulmonary emphysema Active 43451566 0 BRIANA GAVIN [facility] Sensorineural hearing loss, bilateral Active 024662922 TEDCHASTITY A [facility] Snoring Active 70548320 SONG BULLOCK [facility] Type 2 diabetes mellitus without complication Active 506382093 LISSETTE SHAWA Luda [facility] Environmental Allergies (ICD-9-CM 477.9) Inactive 477.9 Dec 18, 2017 PADMA LONG [facility] External hemorrhoids without mention of complication (ICD-9- CM 455.3) Inactive 455.3 Dec 18, 2017 PADMA LONG [facility] Impotence of organic origin (ICD-9-CM 607.84) Inactive 607.84 Dec 18, 2017 PADMA LONG [facility] Screening for Lipoid disorders (ICD-9-CM V77.91) Inactive V77.91 Jan 18, 2007 [facility] Stye * (ICD-9-CM 373.11) Inactive 373.11 Dec 18, 8 Jan 18, 2007 Entered By: PADMA LONG Comment: bilat lower lids, chronic/recurrent PADMA LONG [facility] Tobacco Use Disorder, Continuous Inactive 305.1 Dec 18, 2017 Jan 18, 2007 Entered By: PADMA LONG Comment: one ppd PADMA LONG [facility] Radiology Reports: +/- 30 days of the encounter No Data Provided for This Section Pathology Reports: +/- 30 days of the encounter No Data Provided for This Section Encounter Notes: All associated encounter notes This section contains the clinical notes associated to the Encounter. Date/Time Encounter Note(s) Provider Source Dec 05, 2018 12:04 PM CARE COORDINATION HOME [facility] FOLLOW-UP NOTE: LOCAL TITLE: HT INTERVENTION NOTE STANDARD TITLE: CARE COORDINATION HOME TELEHEALTH FOLLOW-UP NOTE DATE OF NOTE: DEC 05, 2018@12:04 ENTRY DATE: DEC 05, 2018@12:04:05 AUTHOR: KALA JONESIGNER: URGENCY: STATUS: COMPLETED HT INTERVENTION NOTE Has ADDENDA action needed: reentry/renewal of cc cardio consult. f/u w/ dr. arabella miller [place] is actively enrolled in the Home Telehealth program. Review of data shows the following out of range responses: f/u on trends; wnl Assessment: Intervention(s)/Plan: repors concerns w/ bp. informed bp has been wnl/goal. reports "just doesn't like see the fluctuations". reviewed some variation is expected given diet, fluid intake, medication/time taken, activity, sleep, stress. reviewed bp goal w : <140/80 >100/70 - [place] inquiring about cc cardio cons ult. needing renewed/re-entered so august f/u w/ non [facility] pool lifeguard - dr. 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 /gisell/ PAMELA RAMSEY Signed: 12/05/2018 14:29 Receipt Acknowledged By: 12/05/2018 15:21 /gisell/ KALA BOATENG RN [facility]
--- OUTSIDE RECORDS SUMMARY | 2019-12-02 13:22 | XMS REPORT | Encounter Summary ---
Author Author Department of [facility] rsHERBERTH Organization Department of [facility] Affai rs Address [address] [place] [address] Phone Unavailable Care Team Providers Care Trimmer Loader Name Role Phone ADRIEL HERNANDEZ PCP Unavailable Insurance Providers: All historical and current No Data Provided for This Section Selected Encounter This section includes the information on record at [place] for the Encounter. Date/Time Encounter Type Encounter Description Reason Provider Source Dec 05, 2018 03:38 PM Outpatient Encounter TELEPHONE BY STAFF ICD-10-CM I25.10 [facility] heart disease [place] coronary artery w/o jaden muñoz with Provider Comments: Atherosclerotic Heart Disease of [place] Coronary Artery without Angina Pectoris KALA JONES [facility] IHE Encounter Template Text not used by [place] Assessments - Encounter Diagnoses This section includes the primary and secondary diag noses documented for the Encounter. Date/Time Primary/Secondary Diagnosis Diagnosis Name Provider Source Dec 05, 2018 03:38 PM PRIMARY Aths[facility] heart disea se of [place] coronary artery w/o jaden pctKALA Hammond [facility] [...] appointme nts. The data comes from all [facility]. Appointment Date/Time Appointment Type Appointment Facili ty Name Dec 18, 2018 09:00 AM AMBULATORY - MEDICINE [facility] Dec 18, 2018 10:00 [facility] 18[facility] 2018 10:01 AM [facility] - NONE [facility] Jan 06, 2019 11:00 AM [facility] Jan 31, 2019 09:00 AM [facility]ULAT[facility] - MEDICINE [facility] Mar 10, 2019 12:30 PM AMBULATORY - SURGERY [facility] Mar 21, 2019 09:15 AM AMBULATORY - NONE [facility] Mar 21, 2019 09:30 AM AMBULATORY - MEDICINE [facility] Mar 21, 2019 09:31 AM AMBULATORY - MEDICINE ARTUR LaresJuan M SIMSMila [facility] Mar 21, 2019 10:00 AM AM[facility]UL[facility]ORY - MEDICINE [facility] Mar 21, 2019 10:01 AM AMBULATORY - MEDICINE ARTUR LaresJuan M LEVIE V [facility] Mar 26, 2019 10:00 AM [facility] Apr 03, 2019 10:00 AM [facility] - SURGERY [facility]UR [facility] Apr 14, 2019 10:00 AM AMBULATORY - SURGERY [facility] Apr 28, 2019 11:00 AM AMBULATORY - NONE ARTUR BL[facility] Surgical Procedures: All associated to the [...] Range Comment Dec 18, 2018 08:45 AM [facility] CBC & DIFF Specimen Type: [...] < 5 ug/mL *MICROALB/CREAT canc mcg/mg cr *PROT/APPLICATION ARCHITECT RATIO 0.1 *UR PROTEIN 8 mg/dL [...] Smoking Status/Tobacco Use Comment [facility] Jun 26, 2018 02:13 PM [...] The data comes from a [facility] treatment facilities. It does not [...] drug (diso rder) [facility] Medications: [facility] dispensed [...] TEST BLOOD GLUCOSE 50 Dec 19, 2019 [id number] September 04, 2019 PAMELA RAMSEY ACCU-CHEK CHARLES PLUS (GLUCOSE) TEST STRIP Discontinued USE 1 STRIP FOR TESTING TWO TIMES PER WEEK - DIRECTED TO TEST BLOOD GLUCOSE 50 Jul 25, 2019 [id number] Nov 12, 2018 PAMELA RAMSEY CB ALBUTEROL SO4 90MCG/ACTUAT (CFC-F) INHL,ORAL,6.7GM Active INHALE 2 PUFFS BY ORAL INHALATION EVERY 4 HOURS NEEDED FOR BREATHING. SHAKE WELL. RINSE MOUTHPIECE FREQUENTLY TO PREVENT CLOGGING. USE NEEDED FOR SHORTNESS OF AIR/WHEEZING FOR BREATHING. SHAKE WELL. RINSE MOUTHPIECE FREQUENTLY TO PREVENT CLOGGING. USE NEEDED FOR SHORTNESS OF AIR/WHEEZING 1 Dec 19, 2019 [id number] September 04, 2019 PAMELA RAMSEY ALCOHOL PREP PAD Active USE 1 PAD ON SKIN BIW TO CLEAN AND DISINFECT THE SKIN 200 Sep 29, 2020 [id number] Sep 30, 2019 MAURICIO RANKIN [facility] ALCOHOL PREP PAD Discontinued USE 1 PAD ON SKIN BI W TO CLEAN AND DISINFECT THE SKIN 200 Dec 19, 2019 [id number] Jun 06, 2019 PAMELA RAMSEY CBGUILLERMO ALCOHOL PREP PAD Discontinued USE 1 PAD ON SKIN BI W TO CLEAN AND DISINFECT THE SKIN 200 Jul 25, 2019 [id number] Nov 12, 2018 PAMELA RAMSEY ASCORBIC ACID 250MG TAB Non-VA TAKE ONE TABLET BY MOUTH ONCE A DAY Non-VA Documented by: SHANIQUA SCHMIDT nted at: [facility] ASPIRIN 25MG/DIPYRIDAMOLE 200MG CAP,SA Active T CHAPIN 1 CAPSULE BY MOUTH TWO TIMES A DAY - SWALLOW WHOLE. DO NOT CRUSH OR CHEW. FOR RECURRENT TIA/STROKE 180 Dec 19, 2019 [id number] Dec 20, 2018 PAMELA RAMSEY [facility] ASPIRIN 25MG/DIPYRIDAMOLE 200MG CAP,SA Discontinued T CHAPIN 1 CAPSULE BY MOUTH TWO TIMES A DAY - SWALLOW WHOLE. DO NOT CRUSH OR CHEW. FOR RECURRENT TIA/STROKE 180 Feb 06, 2019 [id number] Sep 28, 2018 ZACHARY GRECO [facility] ASPIRIN 81MG TAB,EC Non- [facility] TAKE ONE TABLET BY MOUTH ONCE A DAY Non-VA Documented by: PADMA LONG nted at: [facility] ATORVASTATIN CA 80MG TAB Active TAKE ONE TABLET BY MOUTH AT BEDTIME FOR CHOLESTEROL - REPORT ANY UNEXPLAINED MUSCLE PAIN/WEAKNESS TO YOUR PROVIDER 90 Dec 19, 2019 [id number] September 04, 2019 PAMELA RAMSEY ATORVASTATIN CA 80MG TAB Discontinued TAKE ONE TABLET BY MOUTH AT BEDTIME FOR CHOLESTEROL - REPORT ANY UNEXPLAINED MUSCLE PAIN/WEAKNESS TO YOUR PROVIDER 90 Dec 20, 2018 [id number] Nov 12, 2018 PAMELA RAMSEY BUDESONIDE 160MCG/FORMOTEROL FUM 4.5MCG/SPRAY INHL,ORAL,10.2 GM Active INHALE 2 PUFFS BY MOUTH TWO TIMES A DAY FOR BREATHING. SHAKE WELL. RINSE MOUTH AND SPIT AFTER EACH USE. 3 Apr 24, 2020 [id number] August 22, 2019 LISSA OATES [facility] CALCIUM/VITAMIN D TAB No n-VA TAKE BY MOUTH ONCE A DAY Non-V A Documented by: PADMA LONG nted at: [facility] CARBOXYMETHYLCELLULOSE NA 0.5% SOLN,OPH Active INSTILL ONE DROP IN BOTH EYES FOUR TIMES A DAY FOR DRY EYES 15 Feb 01, 2020 [id number] September 03 0 [facility] DICLOFENAC NA [...] FOR ALL JOINTS. 100 Oct 31, 2018 [id number] Oct 06, 2018 ANAYELI KIRKPATRICK [facility] DICLOFENAC NA 1% GEL,TOP APPLY 2 GRAMS A FFECTED AREA TWO TIMES A DAY NEEDED FOR PAIN AND INFLAMMATION. DO NOT EXCEED 16GM DAILY TO ANY AFFECTED JOINT OF LOWER EXTREMITIES. DO NOT EXCEED 8GM DAILY TO ANY AFFECTED JOINT OF UPPER EXTREMITES. DO NOT EXCEED TOTAL DOSE OF 32GM DAILY FOR ALL JOINTS. 100 Jan 17, 2019 [id number] Dec 20, 2018 PAMELA RAMSEY [facility] FLUTICASONE PROPIONATE 50MCG/SPRAY SOLN,NASAL,16GM Active INSTILL 1 SPRAY IN EACH NOSTRIL ONCE A DAY SHAKE GENTLY BEFORE USE! - MUST BE USED DIRECTED FOR 3 WEEKS TO PROVIDE BENEFIT. * NO EARLY REFILLS * 1UNIT = 30DAYS AT 4 PF/DAY OR 60DAYS AT 2PF/DAY 2 Dec 19, 2019 [id number] August 26, 2019 PAMELA RAMSEY KETOTIFEN 0.025% SOLN,OPH Active INSTILL 1 DROP IN BOTH EYES TWO TIMES A DAY FOR RELIEF OF ALLERGY SYMPTOMS IN EYE(S) Feb 01, 2020 [id number] September 04, 2019 [facility] LANCET,SOFTCLIX Active USE LANCET BIW FOR TESTING BL OOD GLUCOSE DIRECTED 100 Sep 29, 2020 [id number] Sep 30, 2019 MAURICIO RANKIN [facility] LANCET,SOFTCLIX Discontinued USE LANCET BIW FO R TESTING BLOOD GLUCOSE DIRECTED 100 Dec 19, 2019 [id number] Jun 06, 2019 PAMELA RAMSEY LANCET,SOFTCLIX Discontinued USE LANCET BIW FO R TESTING BLOOD GLUCOSE DIRECTED 100 Jul 25, 2019 [id number] Nov 12, 2018 PAMELA RAMSEY LISINOPRIL 40MG TAB Non- [facility] TAKE ONE-HALF TABLET BY MOUTH EVERY MORNING Non-VA Documented by: PAMELA RAMSEY nted at: [facility] LORATADINE/PSEUDOEPHEDRINE TAB,SA Non-VA TAKE BY MOUTH No n-VA Documented by: JUAN LANGume nted at: ARTUR BLAS [facility] MAGNESIUM [...] ACID (REPLACES ACIPHEX) 180 Dec 19, 2019 [id number] August 26, 2019 PAMELA RAMSEY POLYETHYLENE GLYCOL [...] by: ANAYELI KIRKPATRICK nted at: ARTUR BLAS [facility] TERBINAFINE HCL 1% CREAM,TOP Active APPLY LIGHT LY TO AFFECTED AREA TWO TIMES A DAY FOR INFECTION 90 Sep 23, 2020 [id number] Sep 24, 2019 ADRIEL HERNANDEZ UREA 20% CREAM,TOP Active APPLY LIGHTLY (20%) TO AFFECTED AREA TWO TIMES A DAY NEEDED TO PROMOTE HEALING,RUB IN UNTIL COMPLETELY ABSORBED*FOR TOPICAL USE ONLY* APPLY TO BOTH FEET DIRECTED. 90 Sep 25, 2020 [id number] Sep 26, 2019 ADRIEL HERNANDEZ Problems (Conditions): [...] Alcohol intake above recommended sensible limits Active 159573064 PADMA LONG [facility] Allergic conjunctivitis Active 918703010 PURDYNEDA [facility] Bilateral senile combined form cataracts of eyes Active [id number] 9108 PURDYNEDA [facility] Bilateral tinnitus Active [id number] CHASTITY JEAN [facility] Coronary arteriosclerosis Active 13313996 September 08, 2014 Entered By: PADMA LONG Comment: hx of ptca to RCA several yrs. agoSeptember 08, 2014 Entered By: PADMA LONG Comment: heart cath 09/01/14, neg. / previous stent to RCA,, [place] HATCHER, JENNEY R ROBERT [facility] Diabetes mellitus Active 84128651 PAMELA RAMSEY [facility] Disorder of pancreas Active 1375638 September 08, 2014 Entered By: PADMA LONG Comment: 2.5cm low density lseion in bodyMay 2014 Entered By: PADMA LONG Comment: question of communication with pancreatic ductMay 2014 Entered By: PADMA LONG Comment: favored to be cystic pancreatic cancerMay 2014 Entered By: PADMA LONG Comment: per abdominal CT 09/01/14, [place] PADMA LONG [facility] Dry eyes Active 249311619 NEDA SHAW [facility] Gastro-esophageal reflux disease without esophagitis ( SNOMED CT 245207051) Active 562779608 ALF GUEVARA [facility] History of malignant neoplasm of lung Active 730251501 CHAPO BARRETO [facility] Hyperlipidemia (SNOMED CT 43891308) Active 78611360 PAMELA RAMSEY [facility] Lung mass Active 540049401 September 08, 2014 E ntered By: PADMA LONG Comment: 4.5 cm mass, post. segment right upper lobe.September 08, 2014 Entered By: PADMA LONG Comment: mild adenopathy in mediastinum and bilat. hilaMay 2014 Entered By: PADMA LONG Comment: most likely related to lung cancerMay 2014 Entered By: PADMA LONG Comment: per ct angio of chest with contrast 09/01/14,[place] Entered By: PADMA LONG Comment: per path report- mod. differentiated bronchogenic adenoca. 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 Active 40542232 KATHERINE MATT [facility] Obesity Active 924394901 [facility] Obstructive sleep apnea syndrome (SNOMED CT 50027514) Active 658402 015 [facility] D[place]ASS [facility] Pancreatic cyst Active 64256775 JAYLENE GUEVARA [facility] Papilloma of right eyelid Active [id number] NEDA SHAW [facility] Polyp of colon Active 18133289 Jan 23 Entered By: PADMA LONG Comment: c-scope 01/17/16, multiple benign colonic polypsMar 2017 Entered By: PADMA LONG Comment: c-scope,06/25/17,[facility], three benign polyps- sigmoid colon, transverse colon,cecum. see path report cprs SHARRON TORRES [facility] Pulmonary emphysema Active 77478617 0 BRIANA GAVIN [facility] Sensorineural hearing loss, bilateral Active 961550598 TEDCHASTITY Niocl [facility] Snoring Active 22510706 S[facility] BULL[facility] Type 2 diabetes mellitus without complication Active 402150865 LISSETTE SHAWA Luda [facility] Environmental Allergies (ICD-9-CM 477.9) Inactive 477.9 Dec 18, 2017 PADMA LONG [facility] External hemorrhoids without mention of complication (ICD-9- CM 455.3) Inactive 455.3 Dec 18, 2017 PADMA LONG [facility] Impotence of organic origin (ICD-9-CM 607.84) Inactive 607.84 Dec 18, 2017 PADMA LONG [facility] Screening for Lipoid disorders (ICD-9-CM V77.91) Inactive V77.91 Jan 18, 2007 [facility] Stye * (ICD-9-CM 373.11) Inactive 373.11 Dec 18, 8 Jan 18, 2007 Entered By: PAMDA LONG Comment: bilat lower lids, chronic/recurrent PADMA LONG [facility] Tobacco Use Disorder, Continuous Inactive 305.1 [...] 05, 2018 03:38 PM CARE COORDINATION HOME MERGED WITH [facility] NOTE: LOCAL TITLE: HT NOTE STANDARD TITLE: CARE COORDINATION HOME TELEHEALTH NOTE DATE OF NOTE: DEC 05, 2018@15:38 ENTRY DATE: DEC 05, 2018@15:38:49 AUTHOR: KALA JONES COSIGNER: URGENCY: STATUS: COMPLETED reached out to dr. arabella miller office. spoke to staff about need for ERMA to be faxed to [employer]. staffer voices will fax ERMA to [employer] beginning of next week. contacted and encouraged to f/u w/ dr. miller's office w/ regarding to following: Secondary Authorization Request [employer] phone number is [phone] and fax is [phone] /es/ KALA JONES RN, BSN Signed: 12/05/2018 15:44 Receipt Acknowledged By: 12/05/2018 15:50 /gisell/ SHANIQUA DOMINGUEZ RN 12/05/2018 15:49 /es/ KALA GARCIA [facility]
--- OUTSIDE RECORDS SUMMARY | 2019-12-02 13:22 | XMS REPORT | Encounter Summary ---
Author Author [facility] Address [address] [place] [address] Phone Unavailable Care Team Providers Care Test Inspection Engineer Name Role Phone ADRIEL HERNANDEZ PCP Unavailable Insurance Providers: All historical and current No Data Provided for This Section Selected Encounter This section includes the information on record at [place] for the Encounter. Date/Time Encounter Type Encounter Description Reason Provider Source Dec 05, 2018 03:38 PM Outpatient Encounter TELEPHONE BY STAFF ICD-10-CM I25.10 [place] heart disease [place] coronary artery w/o jaden muñoz with Provider Comments: Atherosclerotic Heart Disease of [place] Coronary Artery without Angina Pectoris KALA JONES [facility] IHE Encounter Template Text not used by [place] Assessments - Encounter Diagnoses This section includes the primary and secondary diag noses documented for the Encounter. Date/Time Primary/Secondary Diagnosis Diagnosis Name Provider Source Dec 05, 2018 03:38 PM PRIMARY [place] heart disea [place] coronary artery w/o jaden pctKALA Hammond [facility] Plan of Treatment: Future Appointments (+ [...] appointme nts. The data comes from all [facility]. Appointment Date/Time Appointment Type Appointment Facili ty Name Dec 18, 2018 09:00 AM AMBULATORY - MEDICINE [facility] Dec 18, 2018 10:00 AM [facility] Dec 18[facility] 2018 10:01 AM AMBULATORY - NONE [facility] Jan 06, 2019 11:00 AM [facility] Jan 31, 2019 09:00 AM AM[facility]ULATORY - MEDICINE [facility] Mar 10, 2019 12:30 PM AMBULATORY - SURGERY [facility] Mar 21, 2019 09:15 AM AMBULATORY - NONE [facility] Mar 21, 2019 09:30 AM AMBULATORY - MEDICINE [facility] Mar 21, 2019 09:31 AM AMBULATORY - MEDICINE [facility] LaresJuan M SIMSMila [facility] Mar 21, 2019 10:00 AM AMBULATORY - MEDICINE [facility] Mar 21, 2019 10:01 AM AMBULATORY - MEDICINE ARTUR LaresJuan M [facility] Mar 26, 2019 10:00 AM [facility] Apr 03, 2019 10:00 AM AMBULATORY - SURGERY [facility] BLAS [facility] Apr 14, 2019 10:00 AM AMBULATORY - SURGERY [facility] Apr 28, 2019 11:00 AM AMBULATORY - NONE [facility] Surgical Procedures: All associated to [...] Range Comment Dec 18, 2018 08:45 AM [facility] CBC & DIFF Specimen Type: [...] % Dec 18, 2018 08:45 AM [facility] COMPREHENSIVE METABOLIC PA KELLE Specimen Type: [...] >60 Dec 18, 2018 08:45 AM [facility] LIPID PROFILE(HDL,TRIG,CHO L,LDL) Specimen Type: PLASMA [...] < 5 ug/mL *MICROALB/CREAT canc mcg/mg cr *PROT/VISUAL DESIGN LEAD RATIO 0.1 *UR PROTEIN 8 mg/dL *UR [...] QUIT 15 YRS OR MORE PORSHA BLAS [facility] Tobacco Use History This section includes a history of the smoking, or tobacco -related health factors, that were collected on or before the date of the Encoun ter. The data comes from the [place] facility where the Encounter took place. Date/Time Smoking Status/Tobacco Use Comment [facility] Jun 26, 2018 02:13 PM VA-TOBACCO QUIT 15 YRS OR MORE PORSHA BLAS [facility] Jun 27, 2017 01:39 PM NON-TOBACCO [...] the patient. The data comes from a [facility] treatment facilities. It does not [...] rder) [facility] Medications: VA dispensed (-15 months) [...] TEST BLOOD GLUCOSE 50 Dec 19, 2019 [id number] September 04, 2019 PAMELA RAMSEY ACCU-CHEK CHARLES PLUS (GLUCOSE) TEST STRIP Discontinued USE 1 STRIP FOR TESTING TWO TIMES PER WEEK - DIRECTED TO TEST BLOOD GLUCOSE 50 Jul 25, 2019 [id number] Nov 12, 2018 PAMELA RAMSEY CB ALBUTEROL SO4 90MCG/ACTUAT (CFC-F) INHL,ORAL,6.7GM Active INHALE 2 PUFFS BY ORAL INHALATION EVERY 4 HOURS NEEDED FOR BREATHING. SHAKE WELL. RINSE MOUTHPIECE FREQUENTLY TO PREVENT CLOGGING. USE NEEDED FOR SHORTNESS OF AIR/WHEEZING FOR BREATHING. SHAKE WELL. RINSE MOUTHPIECE FREQUENTLY TO PREVENT CLOGGING. USE NEEDED FOR SHORTNESS OF AIR/WHEEZING 1 Dec 19, 2019 [id number] September 04, 2019 PAMELA RAMSEY ALCOHOL PREP PAD Active USE 1 PAD ON SKIN BIW TO CLEAN AND DISINFECT THE SKIN 200 Sep 29, 2020 [id number] Sep 30, 2019 MAURICIO RANKIN [facility] ALCOHOL PREP PAD Discontinued USE 1 PAD ON SKIN BI W TO CLEAN AND DISINFECT THE SKIN 200 Dec 19, 2019 [id number] Jun 06, 2019 PAMELA RAMSEY CBGUILLERMO ALCOHOL PREP PAD Discontinued USE 1 PAD ON SKIN BI W TO CLEAN AND DISINFECT THE SKIN 200 Jul 25, 2019 [id number] Nov 12, 2018 PAMELA RAMSEY ASCORBIC ACID 250MG TAB Non-VA TAKE ONE TABLET BY MOUTH ONCE A DAY Non-VA Documented by: SHANIQUA SCHMIDT nted at: [facility] ASPIRIN 25MG/DIPYRIDAMOLE 200MG CAP,SA Active T CHAPIN 1 CAPSULE BY MOUTH TWO TIMES A DAY - SWALLOW WHOLE. DO NOT CRUSH OR CHEW. FOR RECURRENT TIA/STROKE 180 Dec 19, 2019 [id number] Dec 20, 2018 PAMELA RAMSEY [facility] ASPIRIN 25MG/DIPYRIDAMOLE 200MG CAP,SA Discontinued T CHAPIN 1 CAPSULE BY MOUTH TWO TIMES A DAY - SWALLOW WHOLE. DO NOT CRUSH OR CHEW. FOR RECURRENT TIA/STROKE 180 Feb 06, 2019 [id number] Sep 28, 2018 ZACHARY GRECO [facility] ASPIRIN 81MG TAB,EC Non- VA TAKE ONE TABLET BY MOUTH ONCE A DAY Non-VA Documented by: PADMA LONG nted at: [facility] ATORVASTATIN CA 80MG TAB Active TAKE ONE TABLET BY MOUTH AT BEDTIME FOR CHOLESTEROL - REPORT ANY UNEXPLAINED MUSCLE PAIN/WEAKNESS TO YOUR PROVIDER 90 Dec 19, 2019 [id number] September 04, 2019 PAMELA RAMSEY ATORVASTATIN CA 80MG TAB Discontinued TAKE ONE TABLET BY MOUTH AT BEDTIME FOR CHOLESTEROL - REPORT ANY UNEXPLAINED MUSCLE PAIN/WEAKNESS TO YOUR PROVIDER 90 Dec 20, 2018 [id number] Nov 12, 2018 PAMELA RAMSEY BUDESONIDE 160MCG/FORMOTEROL FUM 4.5MCG/SPRAY INHL,ORAL,10.2 GM Active INHALE 2 PUFFS BY MOUTH TWO TIMES A DAY FOR BREATHING. SHAKE WELL. RINSE MOUTH AND SPIT AFTER EACH USE. 3 Apr 24, 2020 [id number] August 22, 2019 LISSA OATES [facility] CALCIUM/VITAMIN D TAB No n-VA TAKE BY MOUTH ONCE A DAY Non-V A Documented by: PADMA LONG nted at: [facility] CARBOXYMETHYLCELLULOSE NA 0.5% SOLN,OPH Active INSTILL ONE DROP IN BOTH EYES FOUR TIMES A DAY FOR DRY EYES 15 Feb 01, 2020 [id number] September 03 0 [facility] DICLOFENAC NA [...] FOR ALL JOINTS. 100 Oct 31, 2018 [id number] Oct 06, 2018 ANAYELI KIRKPATRICK [facility] DICLOFENAC NA 1% GEL,TOP APPLY 2 GRAMS A FFECTED AREA TWO TIMES A DAY NEEDED FOR PAIN AND INFLAMMATION. DO NOT EXCEED 16GM DAILY TO ANY AFFECTED JOINT OF LOWER EXTREMITIES. DO NOT EXCEED 8GM DAILY TO ANY AFFECTED JOINT OF UPPER EXTREMITES. DO NOT EXCEED TOTAL DOSE OF 32GM DAILY FOR ALL JOINTS. 100 Jan 17, 2019 [id number] Dec 20, 2018 PAMELA RAMSEY [facility] FLUTICASONE PROPIONATE 50MCG/SPRAY SOLN,NASAL,16GM Active INSTILL 1 SPRAY IN EACH NOSTRIL ONCE A DAY SHAKE GENTLY BEFORE USE! - MUST BE USED DIRECTED FOR 3 WEEKS TO PROVIDE BENEFIT. * NO EARLY REFILLS * 1UNIT = 30DAYS AT 4 PF/DAY OR 60DAYS AT 2PF/DAY 2 Dec 19, 2019 [id number] August 26, 2019 PAMELA RAMSEY KETOTIFEN 0.025% SOLN,OPH Active INSTILL 1 DROP IN BOTH EYES TWO TIMES A DAY FOR RELIEF OF ALLERGY SYMPTOMS IN EYE(S) Feb 01, 2020 [id number] September 04, 2019 [facility] LANCET,SOFTCLIX Active USE LANCET BIW FOR TESTING BL OOD GLUCOSE DIRECTED 100 Sep 29, 2020 [id number] Sep 30, 2019 MAURICIO RANKIN [facility] LANCET,SOFTCLIX Discontinued USE LANCET BIW FO R TESTING BLOOD GLUCOSE DIRECTED 100 Dec 19, 2019 [id number] Jun 06, 2019 PAMELA RAMSEY LANCET,SOFTCLIX Discontinued USE LANCET BIW FO R TESTING BLOOD GLUCOSE DIRECTED 100 Jul 25, 2019 [id number] Nov 12, 2018 PAMELA RAMSEY LISINOPRIL 40MG TAB Non- [place] TAKE ONE-HALF TABLET BY MOUTH EVERY MORNING Non-VA Documented by: PAMELA RAMSEY nted at: [facility] LORATADINE/PSEUDOEPHEDRINE TAB,SA Non-VA TAKE BY MOUTH No n-VA Documented by: JUAN LANGume nted at: [facility] [...] ACID (REPLACES ACIPHEX) 180 Dec 19, 2019 [id number] August 26, 2019 PAMELA RAMSEY POLYETHYLENE GLYCOL [...] Non-VA Documented by: KATHERINE MATT nted at: [facility] PREGABALIN 150MG CAP,ORAL Non-VA TAKE 1 CAPSULE BY MOUTH TWO TIMES A DAY Non-VA Docume nted by: PAMELA RAMSEY nted at: [facility] SEMAGLUTIDE INJ,SOLN Non -VA INJECT SUBCUTANEOUSLY EVERY WEEK Non-VA Documented by: ANAYELI KIRKPATRICK nted at: ARTUR BLAS [facility] TERBINAFINE HCL 1% CREAM,TOP Active APPLY LIGHT LY TO AFFECTED AREA TWO TIMES A DAY FOR INFECTION 90 Sep 23, 2020 [id number] Sep 24, 2019 ADRIEL HERNANDEZ UREA 20% CREAM,TOP Active APPLY LIGHTLY (20%) TO AFFECTED AREA TWO TIMES A DAY NEEDED TO PROMOTE HEALING,RUB IN UNTIL COMPLETELY ABSORBED*FOR TOPICAL USE ONLY* APPLY TO BOTH FEET DIRECTED. 90 Sep 25, 2020 [id number] Sep 26, 2019 ADRIEL HERNANDEZ Problems (Conditions): [...] Alcohol intake above recommended sensible limits Active 882882500 PADMA LONG [facility] Allergic conjunctivitis Active 506818021 FREEMAN SPURNEDA [facility] Bilateral senile combined form cataracts of eyes Active [id number] 9108 FREEMAN SPURNEDA [facility] Bilateral tinnitus Active [id number] CHASTITY JEAN [facility] Coronary arteriosclerosis Active 54049108 September 08, 2014 Entered By: PADMA LONG Comment: hx of ptca to RCA several yrs. agoSeptember 08, 2014 Entered By: PADMA LONG Comment: heart cath 09/01/14, neg. / previous stent to RCA,, [place] HATCHER, JENNEY R ROBERT [facility] Diabetes mellitus Active 30310785 PAMELA RAMSEY [facility] Disorder of pancreas Active 0895431 September 08, 2014 Entered By: PADMA LONG Comment: 2.5cm low density lseion in bodyMay 2014 Entered By: PDAMA LONG Comment: question of communication with pancreatic ductMay 2014 Entered By: PADMA LONG Comment: favored to be cystic pancreatic cancerMay 2014 Entered By: PADMA LONG Comment: per abdominal CT 09/01/14, [place] PADMA LONG [facility] Dry eyes Active 500856507 NEDA SHAW [facility] Gastro-esophageal reflux disease without esophagitis ( SNOMED CT 915637645) Active 856903669 ALF GUEVARA [facility] History of malignant neoplasm of lung Active 149083643 CHAPO BARRETO [facility] Hyperlipidemia (SNOMED CT 94186113) Active 11907958 PAMELA RAMSEY [facility] Lung mass Active 109583007 September 08, 2014 E ntered By: PADMA LONG Comment: 4.5 cm mass, post. segment right upper lobe.September 08, 2014 Entered By: PADMA LONG Comment: mild adenopathy in mediastinum and bilat. hilaMay 2014 Entered By: PADMA LONG Comment: most likely related to lung cancerMay 2014 Entered By: PADMA LONG Comment: per ct angio of chest with contrast 09/01/14,[place] Entered By: PADMA LONG Comment: per path report- mod. differentiated bronchogenic adenoca. 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 Active 18038503 KATHERINE MATT [facility] Obesity Active 390973025 [facility] Obstructive sleep apnea syndrome (SNOMED CT 76770540) Active 775709 015 PHILIPPE DOUGLASS [facility] Pancreatic cyst Active 15855814 JAYLENE GUEVARA [facility] Papilloma of right eyelid Active [id number] NEDA SHAW [facility] Polyp of colon Active 55369083 Jan 23 Entered By: PADMA LONG Comment: c-scope 01/17/16, multiple benign colonic polypsMar 2017 Entered By: PADMA LONG Comment: c-scope,06/25/17,[facility], three benign polyps- sigmoid colon, transverse colon,cecum. see path report cprs SHARRON TORRES [facility] Pulmonary emphysema Active 86052246 0 BRIANA LESLYE [facility] Sensorineural hearing loss, bilateral Active 977245430 TEDCHASTITY A [facility] Snoring Active 34002145 SONG BULLOCK [facility] Type 2 diabetes mellitus without complication Active 510209352 LISSETTE SHAWA Luda [facility] Environmental Allergies (ICD-9-CM 477.9) Inactive 477.9 Dec 18, 2017 PADMA LONG [facility] External hemorrhoids without mention of complication (ICD-9- CM 455.3) Inactive 455.3 Dec 18, 2017 PADMA LONG [facility] Impotence of organic origin (ICD-9-CM 607.84) Inactive 607.84 Dec 18, 2017 PADMA LONG [facility] Screening for Lipoid disorders (ICD-9-CM V77.91) Inactive V77.91 Jan 18, 2007 PADMA LONG [facility] Stye * (ICD-9-CM 373.11) Inactive 373.11 Dec 18, 8 Jan 18, 2007 Entered By: PADMA LONG Comment: bilat lower lids, chronic/recurrent PADMA LONG [facility] Tobacco Use Disorder, Continuous Inactive 305.1 Dec [...] 2018 03:53 PM CARE COORDINATION [facility]: LOCAL TITLE: [place]-CCHT RESCINDED. STANDARD TITLE: CARE COORDINATION HOME TELEHEALTH DISCHARGE NOTE DATE OF NOTE: DEC 05, 2018@15:53 ENTRY DATE: DEC 05, 2018@15:53:33 AUTHOR: KALA JONES COSIGNER: URGENCY: STATUS: COMPLETED see ht discharge note. 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
--- OUTSIDE RECORDS SUMMARY | 2019-12-02 13:22 | XMS REPORT | Encounter Summary ---
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 Date/Time Encounter Type Encounter Description Reason Provider Source Dec 05, 2018 02:00 PM Outpatient Encounter HT NON-VIDEO MONITORI NG ICD-10-CM I25.10 [facility] heart disease of [place] coronary artery w/o jaden muñoz with Provider Comments: Atherosclerotic Heart Disease of [place] Coronary Artery without Angina Pectoris [facility] IHE Encounter Template Text not used by [place] Assessments - Encounter Diagnoses This section includes the primary and secondary diag noses documented for the Encounter. Date/Time Primary/Secondary Diagnosis Diagnosis Name Provider Source Dec 05, 2018 02:01 PM PRIMARY [facility] heart disea se of [place] coronary artery w/o jaden pctKALA [facility] Plan of Treatment: Future Appointments (+ 6 months) and Future Tests (+/- 45 day s) The Plan of Treatment section includes future care activities for the patient fr om all [place] treatment facilities. This section includes future appointments and fu ture orders which are active, pending or scheduled. Future Appointments This section includes appointments that were scheduled t o occur 6 months from the date of the Encounter, up to a maximum of 20 appointme nts. The data comes from all [facility]. Appointment Date/Time Appointment Type Appointment Facili ty Name Dec 18, 2018 09:00 AM AMBUL[facility]ORY [facility]ICINE [facility] Dec 18, 2018 10:00 AM [facility] Dec 18, 2018 10:01 AM [facility] - NONE [facility] Jan 06, 2019 11:00 AM [facility] - NONE [facility] Jan 31, 2019 09:00 AM AM[facility]ULATORY - MEDICINE [facility] Mar 10, 2019 12:30 PM AMBULATORY - SURGERY [facility] Mar 21, 2019 09:15 AM AMBULATORY - NONE [facility] Mar 21, 2019 09:30 AM AMBULATORY - MEDICINE [facility] Mar 21, 2019 09:31 AM AMBULATORY - MEDICINE [facility] LaresJuan M SIMSM[facility] Mar 21, 2019 10:00 AM AMBULATORY - MEDICINE [facility] Mar 21, 2019 10:01 AM AMBULATORY - MEDICINE [facility] Mar 26, 2019 10:00 AM [facility] NONE [facility] Apr 03, 2019 10:00 AM AMBULATORY - SURGERY [facility] BLAS [facility] Apr 14, 2019 10:00 AM AMBULATORY - SURGERY [facility] Apr 28, 2019 11:00 AM AMBULATORY - NONE [facility] Surgical Procedures: All associated to the encounter No Data Provided for This Section Lab Results: +/- 30 days of the encounter This section includes the Chemistry and Hematology Lab R esults on record with [place] for the patient. Radiology Reports and Pathology Report s are provided separately, in subsequent sections. Lab Results This section contains the Chemistry/Hematology Results usha t were resulted 30 days before or 30 days after the date of the Encounter. Date/Time Source Result Type Result - Unit Interpretation Reference Range Comment Dec 18, 2018 08:45 AM [facility] CBC & DIFF Specimen Type: [...] % Dec 18, 2018 08:45 AM [facility] COMPREHENSIVE METABOLIC PA KELLE Specimen [...] >60 Dec 18, 2018 08:45 AM [facility] LIPID PROFILE(HDL,TRIG,CHO L,LDL) Specimen Type: PLASMA [...] < 5 ug/mL *MICROALB/CREAT canc mcg/mg cr *PROT/EMPLOYEE REPRESENTATIVE RATIO 0.1 *UR PROTEIN 8 mg/dL *UR [...] and tobacco- related health factors from the [place] facility where the Encounter took place. Current Smoking Status This section includes the most current smoking, or tobacco -related health factor, from the [place] facility where the Encounter took place. Date/Time Current Smoking Status Comment Facility Jun 26, 2018 02:13 PM VA-TOBACCO QUIT 15 YRS OR MORE [facility] Tobacco Use History This section includes a history of the smoking, or tobacco -related health factors, that were collected on or before the date of the Encoun ter. The data comes from the [place] facility where the Encounter took place. Date/Time Smoking Status/Tobacco Use Comment [facility] Jun 26, 2018 02:13 PM VA-TOBACCO QUIT 15 YRS OR MORE [facility] Jun 27, 2017 01:39 PM NON-TOBACCO USER [...] to adverse reactions to drug (diso rder) [facility] PLAVIX September 08, 2014 Propensity to adverse reactions to drug (diso rder) [facility] 15 Medications: VA dispensed (-15 months) and Non-VA Documented (Obtained Outside A) Section Date Range: 1) prescriptions processed by a VA pharmacy in the last 15 m [facility], and 2) all medications recorded in the VA medical record as "non-VA medic ations". Pharmacy terms refer to VA pharmacy's work on prescriptions. VA patient s are advised to take their medications as instructed by their health care team. The data comes from all [place] treatment facilities. Glossary of Pharmacy Terms:Active = A prescription that can be filled at the local VA pharmacy.Active: On Hold = An active prescription that will not be filled until pharmacy resolves the issue.Active: Susp = An active prescription that is not scheduled to be filled yet.Clinic Order = A medication received during a visit to a [place] clinic or emergency department (currently not available).Discontinued [...] other providers that was filled outside the [place]. Or, it may be an over the [...] TEST BLOOD GLUCOSE 50 Dec 19, 2019 [id number] September 04, 2019 PAMELA RAMSEY ACCU-CHEK CHARLES PLUS (GLUCOSE) TEST STRIP Discontinued USE 1 STRIP FOR TESTING TWO TIMES PER WEEK - DIRECTED TO TEST BLOOD GLUCOSE 50 Jul 25, 2019 [id number] Nov 12, 2018 PAMELA RAMSEY ALBUTEROL SO4 90MCG/ACTUAT (CFC-F) INHL,ORAL,6.7GM Active INHALE 2 PUFFS BY ORAL INHALATION EVERY 4 HOURS NEEDED FOR BREATHING. SHAKE WELL. RINSE MOUTHPIECE FREQUENTLY TO PREVENT CLOGGING. USE NEEDED FOR SHORTNESS OF AIR/WHEEZING FOR BREATHING. SHAKE WELL. RINSE MOUTHPIECE FREQUENTLY TO PREVENT CLOGGING. USE NEEDED FOR SHORTNESS OF AIR/WHEEZING 1 Dec 19, 2019 [id number] September 04, 2019 BRAULIO,PAMELA [facility] ALCOHOL PREP PAD Active USE 1 PAD ON SKIN BIW TO CLEAN AND DISINFECT THE SKIN 200 Sep 29, 2020 [id number] Sep 30, 2019 MAURICIO RANKIN [facility] ALCOHOL PREP PAD Discontinued USE 1 PAD ON SKIN BI W TO CLEAN AND DISINFECT THE SKIN 200 Dec 19, 2019 [id number] Jun 06, 2019 [facility]AMELA [facility] ALCOHOL PREP PAD Discontinued USE 1 PAD ON SKIN BI W TO CLEAN AND DISINFECT THE SKIN 200 Jul 25, 2019 [id number] Nov 12, 2018 PAMELA RAMSEY ASCORBIC ACID 250MG TAB Non-VA TAKE ONE TABLET BY MOUTH ONCE A DAY Non-VA Documented by: SHANIQUA SCHMIDT nted at: [facility] ASPIRIN 25MG/DIPYRIDAMOLE 200MG CAP,SA Active T CHAPIN 1 CAPSULE BY MOUTH TWO TIMES A DAY - SWALLOW WHOLE. DO NOT CRUSH OR CHEW. FOR RECURRENT TIA/STROKE 180 Dec 19, 2019 [id number] Dec 20, 2018 [facility]AMELA [facility]Y [facility] ASPIRIN 25MG/DIPYRIDAMOLE 200MG CAP,SA Discontinued T CHAPIN 1 CAPSULE BY MOUTH TWO TIMES A DAY - SWALLOW WHOLE. DO NOT CRUSH OR CHEW. FOR RECURRENT TIA/STROKE 180 Feb 06, 2019 [id number] Sep 28, 2018 ZACHARY GRECO [facility] ASPIRIN 81MG TAB,EC Non- VA TAKE ONE TABLET BY MOUTH ONCE A DAY Non-VA Documented by: PADMA LONG nted at: [facility] ATORVASTATIN CA 80MG TAB Active TAKE ONE TABLET BY MOUTH AT BEDTIME FOR CHOLESTEROL - REPORT ANY UNEXPLAINED MUSCLE PAIN/WEAKNESS TO YOUR PROVIDER 90 Dec 19, 2019 [id number] September 04, 2019 PAMELA RAMSEY ATORVASTATIN CA 80MG TAB Discontinued TAKE ONE TABLET BY MOUTH AT BEDTIME FOR CHOLESTEROL - REPORT ANY UNEXPLAINED MUSCLE PAIN/WEAKNESS TO YOUR PROVIDER 90 Dec 20, 2018 [id number] Nov 12, 2018 PAMELA RAMSEY BUDESONIDE 160MCG/FORMOTEROL FUM 4.5MCG/SPRAY INHL,ORAL,10.2 GM Active INHALE 2 PUFFS BY MOUTH TWO TIMES A DAY FOR BREATHING. SHAKE WELL. RINSE MOUTH AND SPIT AFTER EACH USE. 3 Apr 24, 2020 [id number] August 22, 2019 LISSA OATES [facility] CALCIUM/VITAMIN D TAB No n-VA TAKE BY MOUTH ONCE A DAY Non-V A Documented by: PADMA LONG nted at: [facility] CARBOXYMETHYLCELLULOSE NA 0.5% SOLN,OPH Active INSTILL ONE DROP IN BOTH EYES FOUR TIMES A DAY FOR DRY EYES 15 Feb 01, 2020 [id number] September 03 0 [facility] DICLOFENAC NA 1% GEL,TOP Discontinued APPLY 2 GRAMS A FFECTED AREA TWO TIMES A DAY NEEDED FOR PAIN AND INFLAMMATION. DO NOT EXCEED 16GM DAILY TO ANY AFFECTED JOINT OF LOWER EXTREMITIES. DO NOT EXCEED 8GM DAILY TO ANY AFFECTED JOINT OF UPPER EXTREMITES. DO NOT EXCEED TOTAL DOSE OF 32GM DAILY FOR ALL JOINTS. 100 Oct 31, 2018 [id number] Oct 06, 2018 ANAYELI K[facility]ATRICK [facility] [...] FOR ALL JOINTS. 100 Jan 17, 2019 [id number] Dec 20, 2018 [facility]ELA RAMSEY [facility] FLUTICASONE PROPIONATE 50MCG/SPRAY SOLN,NASAL,16GM Active INSTILL 1 SPRAY IN EACH NOSTRIL ONCE A DAY SHAKE GENTLY BEFORE USE! - MUST BE USED DIRECTED FOR 3 WEEKS TO PROVIDE BENEFIT. * NO EARLY REFILLS * 1UNIT = 30DAYS AT 4 PF/DAY OR 60DAYS AT 2PF/DAY 2 Dec 19, 2019 [id number] August 26, 2019 [facility] RAM[facility]Y [facility] KETOTIFEN 0.025% SOLN,OPH Active INSTILL 1 DROP IN BOTH EYES TWO TIMES A DAY FOR RELIEF OF ALLERGY SYMPTOMS IN EYE(S) 10 Feb 01, 2020 [id number] September 04, 2019 [facility] LANCET,SOFTCLIX Active USE LANCET BIW FOR TESTING BL OOD GLUCOSE DIRECTED 100 Sep 29, 2020 [id number] Sep 30, 2019 [facility]ICIO [facility]ANK[facility] LANCET,SOFTCLIX Discontinued USE LANCET BIW FO R TESTING BLOOD GLUCOSE DIRECTED 100 Dec 19, 2019 [id number] Jun 06, 2019 PAMELA RAMSEY LANCET,SOFTCLIX Discontinued USE LANCET BIW FO R TESTING BLOOD GLUCOSE DIRECTED 100 Jul 25, 2019 [id number] Nov 12, 2018 PAMELA RAMSEY LISINOPRIL 40MG TAB Non- [place] TAKE ONE-HALF TABLET BY MOUTH EVERY MORNING Non-VA Documented by: PAMELA RAMSEY nted at: [facility] LORATADINE/PSEUDOEPHEDRINE TAB,SA Non-VA TAKE BY MOUTH No n-VA Documented by: JUAN LANG nted at: [facility] MAGNESIUM OXIDE 400MG TAB Non-VA TAKE ONE [...] ACID (REPLACES ACIPHEX) 180 Dec 19, 2019 [id number] August 26, 2019 PAMELA RAMSEY POLYETHYLENE GLYCOL [...] by: ANAYELI KIRKPATRICK nted at: [facility] [place] [facility] TERBINAFINE HCL 1% CREAM,TOP Active APPLY LIGHT LY TO AFFECTED AREA TWO TIMES A DAY FOR INFECTION 90 Sep 23, 2020 [id number] Sep 24, 2019 ADRIEL HERNANDEZ UREA 20% CREAM,TOP Active APPLY LIGHTLY (20%) TO AFFECTED AREA TWO TIMES A DAY NEEDED TO PROMOTE HEALING,RUB IN UNTIL COMPLETELY ABSORBED*FOR TOPICAL USE ONLY* APPLY TO BOTH FEET DIRECTED. 90 Sep 25, 2020 [id number] Sep 26, 2019 ADRIEL HERNANDEZ Problems (Conditions): All historical and current Section Date Range: From patient's date of to the date document was create d. This section includes a list of Problems (Conditions) know n to [place] for the patient. It includes both active and inacti ve problems (conditions). The data comes from all [place] treatment facilities. Problem Status Problem Code Date of Onset Date of Resolution Comm ent(s) Provider Source Alcohol intake above recommended sensible limits Active 136947635 PADMA LONG [facility] Allergic conjunctivitis Active 194203902 NOOKSACKFACUNDONEDA Luda [facility] Bilateral senile combined form cataracts of eyes Active [id number] 9[facility] Luda [facility] Bilateral tinnitus Active [id number] CHASTITY JEAN [facility] Coronary arteriosclerosis Active 62181318 September 08, 2014 Entered By: PADMA LONG Comment: hx of ptca to RCA several yrs. 2014 Entered By: PADMA LONG Comment: heart cath 09/01/14, neg. 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 Gastro-esophageal reflux disease without esophagitis ( SNOMED CT 490734255) Active 830425548 ALF GUEVARA [facility] History of malignant neoplasm of lung Active 395931618 CHAPO BARERTO [facility] Hyperlipidemia (SNOMED CT 90904864) Active 85441963 PAMELA RAMSEY [facility] Lung mass Active 100672047 September 08, 2014 E ntered By: PADMA LONG Comment: 4.5 cm mass, post. segment right upper lobe.September 08, 2014 Entered By: PADMA LONG Comment: mild adenopathy in mediastinum and bilat. hilaMay 2014 Entered By: PADMA LONG Comment: most likely related to lung cancerMay 2014 Entered By: PADMA LONG Comment: per ct angio of chest with contrast 09/01/14,[place] Entered By: PADMA LONG Comment: per path report- mod. differentiated bronchogenic adenoca. 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 Active 07522785 KATHERINE MATT [facility] Obesity Active 593124592 S[facility] Obstructive sleep apnea syndrome (SNOMED CT 94012941) Active 716172 015 [place] [facility] Pancreatic cyst Active 62982458 JAYLENE GUEVARA [facility] Papilloma of right eyelid Active [id number] NEDA SHAW [facility] Polyp of colon Active 26109608 Jan 23 16 Entered By: PADMA LONG Comment: c-scope 01/17/16, multiple benign colonic polypsMar 2017 Entered By: PADMA LONG Comment: c-scope,06/25/17,[facility], three benign polyps- sigmoid colon, transverse colon,cecum. see path report cprs SHARRON TORRES [facility] Pulmonary emphysema Active 54893383 0 BRIANA LESLYE [facility] Sensorineural hearing loss, bilateral Active 542227700 CHASTITY JEAN [facility] Snoring Active 06225534 SONG [place] [facility] Type 2 diabetes mellitus without complication Active 141905504 NEDA SHAW [facility] Environmental Allergies (ICD-9-CM 477.9) Inactive 477.9 Dec 18, 2017 PADMA LONG [facility] External hemorrhoids without mention of complication (ICD-9- CM 455.3) Inactive 455.3 Dec 18, 2017 PADMA LONG [facility] Impotence of organic origin (ICD-9-CM 607.84) Inactive 607.84 Dec 18, 2017 PADMA LONG [facility] Screening for Lipoid disorders (ICD-9-CM V77.91) Inactive V77.91 Jan 18, 2007 PADMA LONG [facility] Stye * (ICD-9-CM 373.11) Inactive 373.11 Dec 18, 8 Jan 18, 2007 Entered By: PADMA LONG Comment: bilat lower lids, chronic/recurrent PADMA LONG [facility] Tobacco Use Disorder, Continuous Inactive 305.1 Dec 18, 2017 Jan 18, 2007 Entered By: PADMA LONG Comment: one ppd PADMA LONG [facility] Radiology Reports: +/- 30 days of the encounter No Data Provided for This Section Pathology Reports: +/- 30 days of the encounter No Data Provided for This Section Encounter Notes: All associated encounter notes This section contains the clinical notes associated to the Encounter. Date/Time Encounter Note(s) Provider Source Dec 05, 2018 02:00 PM CARE COORDINATION [facility] SUMMARIZATION NOTE: LOCAL TITLE: HT MONTHLY MONITOR NOTE STANDARD TITLE: CARE COORDINATION HOME TELEHEALTH SUMMARIZATION DATE OF NOTE: DEC 05, 2018@14:00 ENTRY DATE: DEC 05, 2018@14:00:48 AUTHOR: KALA JONES EXP COSIGNER: URGENCY: STATUS: COMPLETED The [place] is enrolled in the Home Telehealth (HT) [...] RN, BSN Signed: 12/05/2018 14:01 [facility]
--- OUTSIDE RECORDS SUMMARY | 2019-12-02 13:23 | XMS REPORT | Encounter Summary ---
Author Author Department of [facility] HERBERTH kline Organization Department of [facility] Address [address] [place] [address] Phone Unavailable Care Team Providers Care Radiology Nurse Name Role Phone ADRIEL HERNANDEZ PCP Unavailable Insurance Providers: All historical and current No Data Provided for This Section Selected Encounter This section includes the information on record at [place] for the Encounter. Date/Time Encounter Type Encounter Description Reason Provider Source Dec 05, 2018 12:00 AM Outpatient Encounter EVENT (HISTORICAL) [facility] 2018 10:01 AM [facility]BULATORY - NONE [facility] Jan 06, 2019 11:00 AM AMBULATORY - NONE ARTUR [facility] Jan 31, 2019 09:00 AM AMBULATORY - MEDICINE [facility] Mar 10, 2019 12:30 PM AMBULATORY - SURGERY [facility] Mar 21, 2019 09:15 AM AMBULATORY - NONE [facility] Mar 21, 2019 09:30 AM AMBULATORY - MEDICINE [facility] Mar 21, 2019 09:31 AM AMBULATORY - MEDICINE ARTUR BLAS V [facility] Mar 21, 2019 10:00 AM AMBULATORY - MEDICINE [facility] Mar 21, 2019 10:01 AM AMBULATORY - MEDICINE ARTUR BLAS V [facility] Mar 26, 2019 10:00 AM AMBULATORY - NONE [facility] C Apr 03, 2019 10:00 AM AMBULATORY - SURGERY ARTUR CARRASQUILLO Apr 14, 2019 10:00 AM AMBULATORY - SURGERY [facility] Apr 28, 2019 11:00 AM [...] Dec 18, 2018 08:45 AM [facility] CBC & DIFF Specimen Type: BLOOD No [...] 0.4 % Dec 18, 2018 08:45 AM [place] COMPREHENSIVE METABOLIC PA KELLE Specimen Type: PLASMA [...] EGFR >60 Dec 18, 2018 08:45 AM [place] LIPID PROFILE(HDL,TRIG,CHO L,LDL) Specimen Type: PLASMA Comment: For eGFR: eGFR results >60 are imprecise. Many variables affect the calculated result. Interpretation of eGFR results >60 must be monitored over time. CHOLESTEROL 172 mg/dL 0-200 TRIGS 190 mg/dL H 0-150 HDL-CHOLESTEROL 40 mg/dL >40 LDL (CALC) 94 mg/dL 0-99.9 Dec 18, 2018 08:45 AM [place] PROSTATIC SPECIFIC ANTIGEN (TOTAL) Specimen Type: SERUM [...] Negative Negative Dec 18, 2018 08:45 AM [facility] MICROALBUMIN ([place]) RANDO M URINE Specimen Type: URINE Comment: Microalbumin is below the linearity of the instrument, unable to calculate the albumin/creatinine ratio. *MICROALBUMIN,RAND < 5 ug/mL *MICROALB/CREAT canc mcg/mg cr *PROT/INTERNAL SPECIALIST RATIO 0.1 *UR PROTEIN 8 mg/dL [...] (diso rder) [facility], VISN 15 Medications: [facility] dispensed (-15 [...] TEST BLOOD GLUCOSE 50 Dec 19, 2019 [id number] September 04, 2019 PAMELA RAMSEY ACCU-CHEK CHARLES PLUS (GLUCOSE) TEST STRIP Discontinued USE 1 STRIP FOR TESTING TWO TIMES PER WEEK - DIRECTED TO TEST BLOOD GLUCOSE 50 Jul 25, 2019 [id number] Nov 12, 2018 PAMELA RAMSEY ALBUTEROL SO4 90MCG/ACTUAT (CFC-F) INHL,ORAL,6.7GM Active INHALE 2 PUFFS BY ORAL INHALATION EVERY 4 HOURS NEEDED FOR BREATHING. SHAKE WELL. RINSE MOUTHPIECE FREQUENTLY TO PREVENT CLOGGING. USE NEEDED FOR SHORTNESS OF AIR/WHEEZING FOR BREATHING. SHAKE WELL. RINSE MOUTHPIECE FREQUENTLY TO PREVENT CLOGGING. USE NEEDED FOR SHORTNESS OF AIR/WHEEZING 1 Dec 19, 2019 [id number] September 04, 2019 PAMELA RAMSEY [facility] ALCOHOL PREP PAD Active USE 1 PAD ON SKIN BIW TO CLEAN AND DISINFECT THE SKIN 200 Sep 29, 2020 [id number] Sep 30, 2019 MAURICIO RANKIN [facility] ALCOHOL PREP PAD Discontinued USE 1 PAD ON SKIN BI W TO CLEAN AND DISINFECT THE SKIN 200 Dec 19, 2019 [id number] Jun 06, 2019 PAMELA RAMSEY CBGUILLERMO ALCOHOL PREP PAD Discontinued USE 1 PAD ON SKIN BI W TO CLEAN AND DISINFECT THE SKIN 200 Jul 25, 2019 [id number] Nov 12, 2018 PAMELA RAMSEY [facility] ASCORBIC ACID 250MG TAB Non-VA TAKE ONE TABLET BY MOUTH ONCE A DAY Non-VA Documented by: SHANIQUA SCHMIDT nted at: [facility] ASPIRIN 25MG/DIPYRIDAMOLE 200MG CAP,SA Active T CHAPIN 1 CAPSULE BY MOUTH TWO TIMES A DAY - SWALLOW WHOLE. DO NOT CRUSH OR CHEW. FOR RECURRENT TIA/STROKE 180 Dec 19, 2019 [id number] Dec 20, 2018 PAMELA RAMSEY ASPIRIN 25MG/DIPYRIDAMOLE 200MG CAP,SA Discontinued T CHAPIN 1 CAPSULE BY MOUTH TWO TIMES A DAY - SWALLOW WHOLE. DO NOT CRUSH OR CHEW. FOR RECURRENT TIA/STROKE 180 Feb 06, 2019 [id number] Sep 28, 2018 ZACHARY GRECO ASPIRIN 81MG TAB,EC Non- [facility] TAKE ONE TABLET BY MOUTH ONCE A DAY Non-VA Documented by: PADMA LONG nted at: [facility] ATORVASTATIN CA 80MG TAB Active TAKE ONE TABLET BY MOUTH AT BEDTIME FOR CHOLESTEROL - REPORT ANY UNEXPLAINED MUSCLE PAIN/WEAKNESS TO YOUR PROVIDER 90 Dec 19, 2019 [id number] September 04, 2019 PAMELA RAMSEY ATORVASTATIN CA 80MG TAB Discontinued TAKE ONE TABLET BY MOUTH AT BEDTIME FOR CHOLESTEROL - REPORT ANY UNEXPLAINED MUSCLE PAIN/WEAKNESS TO YOUR PROVIDER 90 Dec 20, 2018 [id number] Nov 12, 2018 PAMELA RAMSEY BUDESONIDE 160MCG/FORMOTEROL FUM 4.5MCG/SPRAY INHL,ORAL,10.2 GM Active INHALE 2 PUFFS BY MOUTH TWO TIMES A DAY FOR BREATHING. SHAKE WELL. RINSE MOUTH AND SPIT AFTER EACH USE. 3 Apr 24, 2020 [id number] August 22, 2019 LISSA OATES [facility] CALCIUM/VITAMIN D TAB No n-VA TAKE BY MOUTH ONCE A DAY Non-V A Documented by: PADMA LONG nted at: [facility] CARBOXYMETHYLCELLULOSE NA 0.5% SOLN,OPH Active INSTILL ONE DROP IN BOTH EYES FOUR TIMES A DAY FOR DRY EYES 15 Feb 01, 2020 [id number] September 03 0 [facility] SHAW [facility] DICLOFENAC NA 1% GEL,TOP Discontinued APPLY 2 GRAMS A FFECTED AREA TWO TIMES A DAY NEEDED FOR PAIN AND INFLAMMATION. DO NOT EXCEED 16GM DAILY TO ANY AFFECTED JOINT OF LOWER EXTREMITIES. DO NOT EXCEED 8GM DAILY TO ANY AFFECTED JOINT OF UPPER EXTREMITES. DO NOT EXCEED TOTAL DOSE OF 32GM DAILY FOR ALL JOINTS. 100 Oct 31, 2018 [id number] Oct 06, 2018 ANAYELI KIRKPATRICK [facility] DICLOFENAC NA 1% GEL,TOP APPLY 2 GRAMS A FFECTED AREA TWO TIMES A DAY NEEDED FOR PAIN AND INFLAMMATION. DO NOT EXCEED 16GM DAILY TO ANY AFFECTED JOINT OF LOWER EXTREMITIES. DO NOT EXCEED 8GM DAILY TO ANY AFFECTED JOINT OF UPPER EXTREMITES. DO NOT EXCEED TOTAL DOSE OF 32GM DAILY FOR ALL JOINTS. 100 Jan 17, 2019 [id number] Dec 20, 2018 PAMELA RAMSEY FLUTICASONE PROPIONATE 50MCG/SPRAY SOLN,NASAL,16GM Active INSTILL 1 SPRAY IN EACH NOSTRIL ONCE A DAY SHAKE GENTLY BEFORE USE! - MUST BE USED DIRECTED FOR 3 WEEKS TO PROVIDE BENEFIT. * NO EARLY REFILLS * 1UNIT = 30DAYS AT 4 PF/DAY OR 60DAYS AT 2PF/DAY 2 Dec 19, 2019 [id number] August 26, 2019 BRAULIO,PAMELA P [facility] KETOTIFEN 0.025% SOLN,OPH Active INSTILL 1 DROP IN BOTH EYES TWO TIMES A DAY FOR RELIEF OF ALLERGY SYMPTOMS IN EYE(S) 10 Feb 01, 2020 [id number] September 04, 2019 NED[facility] SHAW [facility] LANCET,SOFTCLIX Active USE LANCET BIW FOR TESTING BL OOD GLUCOSE DIRECTED 100 Sep 29, 2020 [id number] Sep 30, 2019 CHUCHOMAURICIO [facility] LANCET,SOFTCLIX Discontinued USE LANCET BIW FO R TESTING BLOOD GLUCOSE DIRECTED 100 Dec 19, 2019 [id number] Jun 06, 2019 [facility] LANCET,SOFTCLIX Discontinued USE LANCET BIW FO R TESTING BLOOD GLUCOSE DIRECTED 100 Jul 25, 2019 [id number] Nov 12, 2018 PAMELA RAMSEY LISINOPRIL 40MG [...] ACID (REPLACES ACIPHEX) 180 Dec 19, 2019 [id number] August 26, 2019 PAMELA RAMSEY POLYETHYLENE GLYCOL [...] MATT Docume nted at: [facility] PREGABALIN 150MG CAP,ORAL Non-VA TAKE 1 CAPSULE BY MOUTH TWO TIMES A DAY Non-VA Docume nted by: PAMELA RAMSEY Docume nted at: [facility] SEMAGLUTIDE INJ,SOLN Non -VA INJECT SUBCUTANEOUSLY EVERY WEEK Non-VA Documented by: ANAYELI KIRKPATRICK Docume nted at: PSYCHIATRIC TERBINAFINE HCL 1% CREAM,TOP Active APPLY LIGHT LY TO AFFECTED AREA TWO TIMES A DAY FOR INFECTION Sep 23, 2020 [id number] Sep 24, 2019 ADRIEL HERNANDEZ UREA 20% CREAM,TOP Active APPLY LIGHTLY (20%) TO AFFECTED AREA TWO TIMES A DAY NEEDED TO PROMOTE HEALING,RUB IN UNTIL COMPLETELY ABSORBED*FOR TOPICAL USE ONLY* APPLY TO BOTH FEET DIRECTED. Sep 25, 2020 [id number] Sep 26, 2019 ADRIEL HERNANDEZ Problems (Conditions): [...] Alcohol intake above recommended sensible limits Active 788576229 PADMA LONG [facility] Allergic conjunctivitis Active 403300013 [facility] Bilateral senile combined form cataracts of eyes Active 69700215863 9108 [facility] Bilateral tinnitus Active 9532066107266 [facility] Coronary arteriosclerosis Active 55076440 September 08, 2014 Entered By: PADMA LONG Comment: hx of ptca to RCA several yrs. 2014 Entered By: PADMA LONG Comment: heart cath 09/01/14, neg. / previous stent to RCA,, via abida meneses [place]s HATCHER, JENNEY R [facility] Diabetes mellitus Active 96860412 [facility] Disorder of pancreas Active 4251830 September 08, 2014 Entered By: PADMA LONG Comment: 2.5cm low density lseion in bodyMay 2014 Entered By: PADMA LONG Comment: question of communication with pancreatic ductMay 2014 Entered By: PADMA LONG Comment: favored to be cystic pancreatic cancerMay 2014 Entered By: PADMA LONG Comment: per abdominal CT 09/01/14, via abida meneses ks FRAZIER, JAY J PS[facility] Dry eyes Active 810868668 NEDA SHAW [facility] Gastro-esophageal reflux disease without esophagitis ( SNOMED CT 287789899) Active 294845354 ALF [facility] History of malignant neoplasm of lung Active 588655695 [facility]TO [facility] Hyperlipidemia (SNOMED CT 26482983) Active 45679530 [facility] Lung mass Active 579015281 September 08, 2014 E ntered By: PADMA [...] differentiated bronchogenic adenoca. 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 Active 72400998 KATHERINE MATT [facility] Obesity Active 546633342 [facility] Obstructive sleep apnea syndrome (SNOMED CT 93282245) Active 453851 015 EVONNEPHILIPPE ARTUR [facility] Pancreatic cyst Active 62989771 JAYLENE [facility]VARA [facility] Papilloma of right eyelid Active [id number] NEDA SHAW [facility] Polyp of colon Active 52997079 Jan 23 Entered By: PADMA LONG Comment: c-scope 01/17/16, multiple benign colonic polypsJun 28, 2017 Entered By: PADMA LONG Comment: c-scope,06/25/17,[facility], three benign polyps- sigmoid colon, transverse colon,cecum. see path report cprs SHARRON TORRES [facility] Pulmonary emphysema Active 92843466 0 BRIANA GAVIN [facility] Sensorineural hearing loss, bilateral Active 822263006 [facility] Snoring Active 60887077 [facility] Type 2 diabetes mellitus without complication Active 829454661 [facility] Environmental Allergies (ICD-9-CM 477.9) Inactive 477.9 Dec 18, 2017 PADMA LONG [facility] External hemorrhoids without mention of complication (ICD-9- CM 455.3) Inactive 455.3 Dec 18, 2017 PADMA LONG [facility] Impotence of organic origin (ICD-9-CM 607.84) Inactive 607.84 Dec 18, 2017 PADMA LONG [facility] Screening for Lipoid disorders (ICD-9-CM V77.91) Inactive V77.91 Jan 18, 2007 [facility] Stye * (ICD-9-CM 373.11) Inactive 373.11 Dec 18, 201 8 Jan 18, 2007 Entered By: PADMA LONG Comment: bilat lower lids, chronic/recurrent [facility] Tobacco Use [...]
--- OUTSIDE RECORDS SUMMARY | 2019-12-02 13:44 | XMS REPORT | Encounter Summary ---
Author Author Department of [facility] HERBERTH kline Organization Department of [facility] Sheldon Affai Address [address] [place] [address] Phone Unavailable Care Team Providers Care Instructional Specialist Name Role Phone ADRIEL HERNANDEZ PCP Unavailable Insurance Providers: All historical and current No Data Provided for This Section Selected Encounter This section includes the information on record at [place] for the Encounter. Date/Time Encounter Type Encounter Description Reason Provider Source Nov 19, 2019 04:31 PM Outpatient Encounter COMMUNITY CARE CONSULT RIO RAMIREZ JR [facility] Encounter Template Text not used by [...] PM AMBULATORY - MEDICINE ARTUR BLAS V [facility] [place] Dec 31, 2019 01:16 PM AMBULATORY - MEDICINE ARTUR BLAS [facility] Jan 01, 2020 09:00 AM AMBULATORY - MEDICINE ARTUR BLAS [facility] Jan 07, 2020 12:00 PM AMBULATORY - MEDICINE [facility] Jan 27, 2020 01:00 PM AMBULATORY - MEDICINE [facility]LENE KEYS [facility] Mar 31, 2020 09:30 AM AMBULATORY - MEDICINE [facility] Mar 31, 2020 09:31 AM AMBULATORY - MEDICINE ARTUR BLAS [facility] Mar 31, 2020 10:00 AM AMBULATORY - MEDICINE [facility] Mar 31, 2020 10:01 AM AMBULATORY - MEDICINE ARTUR BLAS [facility] Apr 07, 2020 08:00 AM AMBULATORY - NONE [facility] Active, Pending, and Scheduled Orders This [...] the Encounter. The data comes from all [place] treatment facilities. Test Date/Time Test Type Test Details Facility Name Nov 17, 2019 07:23 AM Consult Order [facility] [id number] Cons Center [facility] Dec 15, 2019 12:00 AM Laboratory - Chemistry Order CREATININ E (INCLUDES EGFR) GREEN TOP TUBE PLASMA SP [facility] Dec 31, 2019 12:00 AM Laboratory - Chemistry Order CBC & DIF F 5 ML LAVENDER TOP BLOOD SP [facility] Dec 31, 2019 11:00 AM Imaging - CT Scan Order CT CHEST/THORA X W/CONT hx lung cancer [facility] Dec 31, 2019 11:00 AM Imaging - CT Scan Order CT ABD & PELV W/CONTRAST hx lung cancer [facility] Surgical Procedures: All associated to the [...] to adverse reactions to drug (diso rder) [facility] 15 Medications: VA dispensed (-15 months) and Non-VA Documented (Obtained Outside V A) Section Date Range: 1) prescriptions processed by a [facility] pharmacy in the last 15 m [facility], and 2) all medications [...] TEST BLOOD GLUCOSE 50 Dec 19, 2019 [id number] September 04, 2019 PAMELA RAMSEY ACCU-CHEK CHARLES PLUS (GLUCOSE) TEST STRIP Discontinued USE 1 STRIP FOR TESTING TWO TIMES PER WEEK - DIRECTED TO TEST BLOOD GLUCOSE 50 Jul 25, 2019 [id number] Nov 12, 2018 PAMELA RAMSEY ALBUTEROL SO4 90MCG/ACTUAT (CFC-F) INHL,ORAL,6.7GM Active INHALE 2 PUFFS BY ORAL INHALATION EVERY 4 HOURS NEEDED FOR BREATHING. SHAKE WELL. RINSE MOUTHPIECE FREQUENTLY TO PREVENT CLOGGING. USE NEEDED FOR SHORTNESS OF AIR/WHEEZING FOR BREATHING. SHAKE WELL. RINSE MOUTHPIECE FREQUENTLY TO PREVENT CLOGGING. USE NEEDED FOR SHORTNESS OF AIR/WHEEZING 1 Dec 19, 2019 [id number] September 04, 2019 PAMELA RAMSEY CBGUILLERMO ALCOHOL PREP PAD Active USE 1 PAD ON SKIN BIW TO CLEAN AND DISINFECT THE SKIN 200 Sep 29, 2020 [id number] Sep 30, 2019 PAMELLA RANKINLloyd [facility] ALCOHOL PREP PAD Discontinued USE 1 PAD ON SKIN BI W TO CLEAN AND DISINFECT THE SKIN 200 Dec 19, 2019 [id number] Jun 06, 2019 PAMELA RAMSEY CBGUILLERMO ALCOHOL PREP PAD Discontinued USE 1 PAD ON SKIN BI W TO CLEAN AND DISINFECT THE SKIN 200 Jul 25, 2019 [id number] Nov 12, 2018 PAMELA RAMSEY ASCORBIC ACID 250MG TAB Non-VA TAKE ONE TABLET BY MOUTH ONCE A DAY Non-VA Documented by: SHANIQUA SCHMIDT nted at: [facility] ASPIRIN 25MG/DIPYRIDAMOLE 200MG CAP,SA Active T CHAPIN 1 CAPSULE BY MOUTH TWO TIMES A DAY - SWALLOW WHOLE. DO NOT CRUSH OR CHEW. FOR RECURRENT TIA/STROKE 180 Dec 19, 2019 [id number] Dec 20, 2018 [facility]ELA RAMSEY [facility] ASPIRIN 25MG/DIPYRIDAMOLE 200MG CAP,SA Discontinued T CHAPIN 1 CAPSULE BY MOUTH TWO TIMES A DAY - SWALLOW WHOLE. DO NOT CRUSH OR CHEW. FOR RECURRENT TIA/STROKE 180 Feb 06, 2019 [id number] Sep 28, 2018 ZACHARY GRECO [facility] ASPIRIN 81MG TAB,EC Non- VA TAKE ONE TABLET BY MOUTH ONCE A DAY Non-VA Documented by: PADMA LONG nted at: [facility] ATORVASTATIN CA 80MG TAB Active TAKE ONE TABLET BY MOUTH AT BEDTIME FOR CHOLESTEROL - REPORT ANY UNEXPLAINED MUSCLE PAIN/WEAKNESS TO YOUR PROVIDER 90 Dec 19, 2019 [id number] September 04, 2019 PAMELA RAMSEY ATORVASTATIN CA 80MG TAB Discontinued TAKE ONE TABLET BY MOUTH AT BEDTIME FOR CHOLESTEROL - REPORT ANY UNEXPLAINED MUSCLE PAIN/WEAKNESS TO YOUR PROVIDER 90 Dec 20, 2018 [id number] Nov 12, 2018 PAMELA RAMSEY BUDESONIDE 160MCG/FORMOTEROL FUM 4.5MCG/SPRAY INHL,ORAL,10.2 GM Active INHALE 2 PUFFS BY MOUTH TWO TIMES A DAY FOR BREATHING. SHAKE WELL. RINSE MOUTH AND SPIT AFTER EACH USE. 3 Apr 24, 2020 [id number] August 22, 2019 LISSA OATES [facility] CALCIUM/VITAMIN D TAB No n-VA TAKE BY MOUTH ONCE A DAY Non-V A Documented by: PADMA LONG nted at: [facility] CARBOXYMETHYLCELLULOSE NA 0.5% SOLN,OPH Active INSTILL ONE DROP IN BOTH EYES FOUR TIMES A DAY FOR DRY EYES 15 Feb 01, 2020 [id number] September 03 0 [facility] DICLOFENAC NA 1% GEL,TOP Discontinued APPLY 2 GRAMS A FFECTED AREA TWO TIMES A DAY NEEDED FOR PAIN AND INFLAMMATION. DO NOT EXCEED 16GM DAILY TO ANY AFFECTED JOINT OF LOWER EXTREMITIES. DO NOT EXCEED 8GM DAILY TO ANY AFFECTED JOINT OF UPPER EXTREMITES. DO NOT EXCEED TOTAL DOSE OF 32GM DAILY FOR ALL JOINTS. 100 Oct 31, 2018 [id number] Oct 06, 2018 ANAYELI KIRKPATRICK [facility] DICLOFENAC NA 1% GEL,TOP APPLY 2 GRAMS A FFECTED AREA TWO TIMES A DAY NEEDED FOR PAIN AND INFLAMMATION. DO NOT EXCEED 16GM DAILY TO ANY AFFECTED JOINT OF LOWER EXTREMITIES. DO NOT EXCEED 8GM DAILY TO ANY AFFECTED JOINT OF UPPER EXTREMITES. DO NOT EXCEED TOTAL DOSE OF 32GM DAILY FOR ALL JOINTS. 100 Jan 17, 2019 [id number] Dec 20, 2018 PAMELA RAMSEY FLUTICASONE PROPIONATE 50MCG/SPRAY SOLN,NASAL,16GM Active INSTILL 1 SPRAY IN EACH NOSTRIL ONCE A DAY SHAKE GENTLY BEFORE USE! - MUST BE USED DIRECTED FOR 3 WEEKS TO PROVIDE BENEFIT. * NO EARLY REFILLS * 1UNIT = 30DAYS AT 4 PF/DAY OR 60DAYS AT 2PF/DAY 2 Dec 19, 2019 [id number] August 26, 2019 PAMELA RAMSEY KETOTIFEN 0.025% SOLN,OPH Active INSTILL 1 DROP IN BOTH EYES TWO TIMES A DAY FOR RELIEF OF ALLERGY SYMPTOMS IN EYE(S) Feb 01, 2020 [id number] September 04, 2019 [facility] SHAW [facility] LANCET,SOFTCLIX Active USE LANCET BIW FOR TESTING BL OOD GLUCOSE DIRECTED Sep 29, 2020 [id number] Sep 30, 2019 [facility] LANCET,SOFTCLIX Discontinued USE LANCET BIW FO R TESTING BLOOD GLUCOSE DIRECTED Dec 19, 2019 [id number] Jun 06, 2019 [facility]A RAMSE[facility] LANCET,SOFTCLIX Discontinued USE LANCET BIW FO R TESTING BLOOD GLUCOSE DIRECTED Jul 25, 2019 [id number] Nov 12, 2018 PAMELA RAMSEY LISINOPRIL 40MG TAB Non- VA TAKE ONE-HALF TABLET BY MOUTH EVERY MORNING Non-VA Documented by: PAMELA RAMSEY nted at: [facility] LORATADINE/PSEUDOEPHEDRINE TAB,SA Non-VA TAKE BY MOUTH No n-VA Documented by: JUAN LANG nted at: [facility] BLAS [facility] MAGNESIUM OXIDE 400MG TAB Non-VA TAKE ONE TABLET BY MOUTH ONCE A DAY Non-VA Documented by: SHANIQAU SCHMIDT nted at: [facility] METFORMIN HCL 500MG TAB Non-VA TAKE ONE TABLET BY MOUTH TWO TIMES A DAY WITH BREAKFAST AND EVENING MEAL Non-VA Documented by: SHANIQUA SCHMIDT nted at: [facility] MULTIVITAMINS CAP/TAB No n-VA TAKE 1 CAP/TAB BY MOUTH ONCE A DAY Non-VA Documented by: SHANIQUA SCHIMDT nted at: [facility] OMEPRAZOLE 20MG CAP,EC Active TAKE 2 CAPSULES B Y MOUTH BEFORE BREAKFAST 30 MINUTES BEFORE EATING TO LOWER STOMACH ACID (REPLACES ACIPHEX) 180 Dec 19, 2019 [id number] August 26, 2019 PAMELA RAMSEY POLYETHYLENE GLYCOL [...] Documented by: KATHERINE MATT Docume nted at: [facility] PREGABALIN 150MG CAP,ORAL Non-VA TAKE 1 CAPSULE BY MOUTH TWO TIMES A DAY Non-VA Docume nted by: PAMELA RAMSEY Docume nted at: [facility] SEMAGLUTIDE INJ,SOLN Non -VA INJECT SUBCUTANEOUSLY EVERY WEEK Non-VA Documented by: ANAYELI KIRKPATRICK Docume nted at: [facility]ITAL[facility] TERBINAFINE HCL 1% CREAM,TOP Active APPLY LIGHT LY TO AFFECTED AREA TWO TIMES A DAY FOR INFECTION 90 Sep 23, 2020 [id number] Sep 24, 2019 ADRIEL HERNANDEZ UREA 20% CREAM,TOP Active APPLY LIGHTLY (20%) TO AFFECTED AREA TWO TIMES A DAY NEEDED TO PROMOTE HEALING,RUB IN UNTIL COMPLETELY ABSORBED*FOR TOPICAL USE ONLY* APPLY TO BOTH FEET DIRECTED. 90 Sep 25, 2020 [id number] Sep 26, 2019 ADRIEL HERNANDEZ Problems (Conditions): [...] Alcohol intake above recommended sensible limits Active 788436699 PADMA LONG [facility] Allergic conjunctivitis Active 452841069 [facility] Bilateral senile combined form cataracts of eyes Active 13913304328 9108 [facility] Bilateral tinnitus Active [id number] CHASTITY JEAN [facility] Coronary arteriosclerosis Active 93246419 September 08, 2014 Entered By: PADMA LONG Comment: hx of ptca to RCA several yrs. agoSeptember 08, 2014 Entered By: PADMA LONG Comment: heart cath 09/01/14, neg. / previous stent to RCA,, via abida meneses ks HATCHER, JENNEY R [facility] Diabetes mellitus Active 57408870 PAMELA RAMSEY [facility] Disorder of pancreas Active 7843591 September 08, 2014 Entered By: PADMA LONG Comment: 2.5cm low density lseion in bodyMay 2014 Entered By: PADMA LONG Comment: question of communication with pancreatic ductMay 2014 Entered By: PADMA LONG Comment: favored to be cystic pancreatic cancerMay 2014 Entered By: PADMA LONG Comment: per abdominal CT 09/01/14, via abida meneses,PADMA Pradhan [facility] Dry eyes Active 580339406 [facility] SHAW [facility] Gastro-esophageal reflux disease without esophagitis ( SNOMED CT 502047123) Active 509993802 ALF GUEVARA [facility] History of malignant neoplasm of lung Active 668804446 CHAPO BARRETO [facility] Hyperlipidemia (SNOMED CT 11674489) Active 58871362 PAMELA RAMSEY [facility] Lung mass Active 594290268 September 08, 2014 E ntered By: PADMA [...] uncertain behavior of skin of eyelid Active 48376365 KATHERINE MATT [facility] Obesity Active 813037679 [facility] Obstructive sleep apnea syndrome (SNOMED CT 55212435) Active 781411 015 [place] [facility] Pancreatic cyst Active 61684341 JAYLENE GUEVARA [facility] Papilloma of right eyelid Active [id number] NEDA SHAW [facility] Polyp of colon Active 37040958 Jan 23 Entered By: PADMA LONG Comment: c-scope 01/17/16, multiple benign colonic polypsJun 28, 2017 Entered By: PADMA LONG Comment: c-scope,06/25/17,[facility], three benign polyps- sigmoid colon, transverse colon,cecum. see path report cprs SHARRON TORRES [facility] Pulmonary emphysema Active 92856135 0 BRIANA GAVIN [facility] Sensorineural hearing loss, bilateral Active 187446849 CHASTITY JEAN [facility] Snoring Active 47380261 SONG BULLOCK [facility] Type 2 diabetes mellitus without complication Active 269963950 NED[facility] SHAW [facility] Environmental Allergies [...] Inactive V77.91 Jan 18, 2007 PADMA LONG [facility] Stye * (ICD-9-CM 373.11) [...] STATUS: COMPLETED COMMUNITY CARE-COORDINATION PLAN Has ADDENDA [place] self-presented to community emergency facility Emergency Notification Intake Date Presenting to the Facility: Oct [facility] Hospital Name: Hospital: [facility] Address: [address] [place] [address] City: [place] State: [place] Zip Code: [address] Chief complaint: DIFFUSELY WEAK, HEAVY, SPEECH DIFFICULTY Primary Diagnosis: Patient Admitted? Yes Route of Admission: Date/Time of Admission: Admitting Diagnosis: DIFFUSELY WEAK, HEAVY, SPEECH DIFFICULTY Community Care Provider: Confirm Level of Care: Community Facility Point of Contact: Name: Phone: ##################################################### Notification ID: [id number] Status: Closed - Approved for 1703 Auth #: [id number] ###################################################### CC UR team RNs for care /gisell/ YANIQUE TANG [facility] Advanced Medical Support Asst Signed: 11/19/2019 16:37 Receipt Acknowledged By: 11/20/2019 08:11 /gisell/ SAMIRA Page OCC UR RN 11/20/2019 ADDENDUM STATUS: COMPLETED [place] self-presented to community emergency facility Is the [place] reporting any Suicidal/Homicidal ideation or self-harming behavior? [...] SIGNATURE * YANIQUE TANG [place] [facility]
--- OUTSIDE RECORDS SUMMARY | 2019-12-02 13:45 | XMS REPORT | Encounter Summary ---
Author Author [facility] Organization [facility] Address [address] [place] [address] Phone Unavailable Care Team Providers Care Stage Rigger Name Role Phone ADRIEL HERNANDEZ PCP Unavailable Insurance Providers: All historical and current No Data Provided for This Section Selected Encounter This section includes the information on record at [place] for the Encounter. Date/Time Encounter Type Encounter Description Reason Provider Source Nov 18, 2019 10:00 AM Outpatient Encounter TELEPHONE/MEDICINE D-10-CM G47.33 Obstructive sleep apnea (adult) (pediatric) with Provider Comments: Obstructive Sleep Apnea (Adult) (Pediatric) SALOMON ESTEVEZ [facility] IHE Encounter Template Text not used by [place] Assessments - Encounter Diagnoses This section includes the primary and secondary diag noses documented for the Encounter. Date/Time Primary/Secondary Diagnosis Diagnosis Name Provider Source Nov 18, 2019 10:00 AM PRIMARY Obstructive sleep apnea (a dult) (pediatric) SALOMON ESTEVEZ [facility] Plan of Treatment: Future Appointments (+ [...] appointme nts. The data comes from all [facility]. Appointment Date/Time Appointment Type Appointment Facili ty Name Dec 31, 2019 11:00 AM AMBULATORY - NONE [facility] Dec 31, 2019 01:15 PM AMBULATORY - MEDICINE [facility] Dec 31, 2019 01:16 PM AMBULATORY - MEDICINE [facility] Jan 01, 2020 09:00 AM AMBULATORY - MEDICINE [facility] Jan 07, 2020 12:00 PM AMBULATORY - MEDICINE [facility] Jan 27, 2020 01:00 PM AMBULATORY - MEDICINE [facility] Mar 31, 2020 09:30 AM AMBULATORY - MEDICINE [facility] Mar 31, 2020 09:31 AM AMBULATORY - MEDICINE [facility] Mar 31, 2020 10:00 AM AMBULATORY - MEDICINE [facility] Mar 31, 2020 10:01 AM AMBULATORY - MEDICINE [facility] Apr 07, 2020 08:00 AM AMBULATORY - NONE [facility] Active, Pending, and Scheduled Orders This [...] the Encounter. The data comes from all [facility]. Test Date/Time Test Type Test Details Facility Name Nov 17, 2019 07:23 AM Consult Order PENDING SALE TO [facility] [id number] Cons Certified Performance Technologist's Choice [facility] Dec 15, 2019 12:00 AM Laboratory - Chemistry Order CREATININ E (INCLUDES EGFR) GREEN TOP TUBE PLASMA SP [place] LudaJuan [facility] Dec 31, 2019 12:00 AM Laboratory - Chemistry Order CBC & DIF F 5 ML LAVENDER TOP BLOOD SP [facility] Dec 31, 2019 11:00 AM Imaging - CT Scan Order CT CHEST/THORA X W/CONT hx lung cancer [facility] LudaJuan [facility] Dec 31, 2019 11:00 AM Imaging - CT Scan Order CT ABD & PELV W/CONTRAST hx lung cancer [facility] Surgical Procedures: All associated [...] QUIT 15 YRS OR MORE [facility] Tobacco Use History This section includes a history of the smoking, or tobacco -related health factors, that were collected on or before the date of the Encoun ter. The data comes from the [place] facility where the Encounter took place. Date/Time Smoking Status/Tobacco Use Comment [facility] Jun 26, 2018 02:13 PM VA-TOBACCO QUIT 15 YRS OR MORE [facility] Jun 27, 2017 01:39 PM NON-TOBACCO [...] adverse reactions to drug (diso rder) [facility] 15 PLAVIX September 08, 2014 Propensity to adverse reactions to drug (diso rder) [facility], VISN 15 Medications: VA dispensed (-15 months) and Non-VA Documented (Obtained Outside V A) Section Date Range: 1) prescriptions processed by a VA pharmacy in the last 15 m [facility], and 2) all medications recorded in the [place] medical record as "non-VA medic ations". Pharmacy [...] TEST BLOOD GLUCOSE 50 Dec 19, 2019 [id number] September 04, 2019 PAMELA RAMSEY ACCU-CHEK CHARLES PLUS (GLUCOSE) TEST STRIP Discontinued USE 1 STRIP FOR TESTING TWO TIMES PER WEEK - DIRECTED TO TEST BLOOD GLUCOSE 50 Jul 25, 2019 [id number] Nov 12, 2018 PAMELA RAMSEY ALBUTEROL SO4 90MCG/ACTUAT (CFC-F) INHL,ORAL,6.7GM Active INHALE 2 PUFFS BY ORAL INHALATION EVERY 4 HOURS NEEDED FOR BREATHING. SHAKE WELL. RINSE MOUTHPIECE FREQUENTLY TO PREVENT CLOGGING. USE NEEDED FOR SHORTNESS OF AIR/WHEEZING FOR BREATHING. SHAKE WELL. RINSE MOUTHPIECE FREQUENTLY TO PREVENT CLOGGING. USE NEEDED FOR SHORTNESS OF AIR/WHEEZING 1 Dec 19, 2019 [id number] September 04, 2019 PAMELA RAMSEY [facility] ALCOHOL PREP PAD Active USE 1 PAD ON SKIN BIW TO CLEAN AND DISINFECT THE SKIN 200 Sep 29, 2020 [id number] Sep 30, 2019 MAURICIO RANKIN [facility] ALCOHOL PREP PAD Discontinued USE 1 PAD ON SKIN BI W TO CLEAN AND DISINFECT THE SKIN 200 Dec 19, 2019 [id number] Jun 06, 2019 PAMELA RAMSEY [facility] ALCOHOL PREP PAD Discontinued USE 1 PAD ON SKIN BI W TO CLEAN AND DISINFECT THE SKIN 200 Jul 25, 2019 [id number] Nov 12, 2018 PAMELA RAMSEY [facility] ASCORBIC ACID 250MG TAB Non-VA TAKE ONE TABLET BY MOUTH ONCE A DAY Non-VA Documented by: SHANIQUA SCHMIDT nted at: [facility] ASPIRIN 25MG/DIPYRIDAMOLE 200MG CAP,SA Active T CHAPIN 1 CAPSULE BY MOUTH TWO TIMES A DAY - SWALLOW WHOLE. DO NOT CRUSH OR CHEW. FOR RECURRENT TIA/STROKE 180 Dec 19, 2019 [id number] Dec 20, 2018 PAMELA RAMSEY [facility] ASPIRIN 25MG/DIPYRIDAMOLE 200MG CAP,SA Discontinued T CHAPIN 1 CAPSULE BY MOUTH TWO TIMES A DAY - SWALLOW WHOLE. DO NOT CRUSH OR CHEW. FOR RECURRENT TIA/STROKE 180 Feb 06, 2019 [id number] Sep 28, 2018 ZACHARY GRECO ASPIRIN 81MG TAB,EC Non- VA TAKE ONE TABLET BY MOUTH ONCE A DAY Non-VA Documented by: PADMA LONG nted at: [facility] ATORVASTATIN CA 80MG TAB Active TAKE ONE TABLET BY MOUTH AT BEDTIME FOR CHOLESTEROL - REPORT ANY UNEXPLAINED MUSCLE PAIN/WEAKNESS TO YOUR PROVIDER 90 Dec 19, 2019 [id number] September 04, 2019 PAMELA RAMSEY [facility] ATORVASTATIN CA 80MG TAB Discontinued TAKE ONE TABLET BY MOUTH AT BEDTIME FOR CHOLESTEROL - REPORT ANY UNEXPLAINED MUSCLE PAIN/WEAKNESS TO YOUR PROVIDER 90 Dec 20, 2018 [id number] Nov 12, 2018 PAMELA RAMSEY BUDESONIDE 160MCG/FORMOTEROL FUM 4.5MCG/SPRAY INHL,ORAL,10.2 GM Active INHALE 2 PUFFS BY MOUTH TWO TIMES A DAY FOR BREATHING. SHAKE WELL. RINSE MOUTH AND SPIT AFTER EACH USE. 3 Apr 24, 2020 [id number] August 22, 2019 [facility] CALCIUM/VITAMIN D TAB No n-VA TAKE BY MOUTH ONCE A DAY Non-V A Documented by: PADMA LONG nted at: [facility] CARBOXYMETHYLCELLULOSE NA 0.5% SOLN,OPH Active INSTILL ONE DROP IN BOTH EYES FOUR TIMES A DAY FOR DRY EYES 15 Feb 01, 2020 [id number] [address] [facility] DICLOFENAC NA 1% GEL,TOP Discontinued APPLY 2 GRAMS A FFECTED AREA TWO TIMES A DAY NEEDED FOR PAIN AND INFLAMMATION. DO NOT EXCEED 16GM DAILY TO ANY AFFECTED JOINT OF LOWER EXTREMITIES. DO NOT EXCEED 8GM DAILY TO ANY AFFECTED JOINT OF UPPER EXTREMITES. DO NOT EXCEED TOTAL DOSE OF 32GM DAILY FOR ALL JOINTS. 100 Oct 31, 2018 [id number] Oct 06, 2018 ANAYELI KIRKPATRICK [facility] DICLOFENAC NA 1% GEL,TOP APPLY 2 GRAMS A FFECTED AREA TWO TIMES A DAY NEEDED FOR PAIN AND INFLAMMATION. DO NOT EXCEED 16GM DAILY TO ANY AFFECTED JOINT OF LOWER EXTREMITIES. DO NOT EXCEED 8GM DAILY TO ANY AFFECTED JOINT OF UPPER EXTREMITES. DO NOT EXCEED TOTAL DOSE OF 32GM DAILY FOR ALL JOINTS. 100 Jan 17, 2019 [id number] Dec 20, 2018 PAMELA RAMSEY FLUTICASONE PROPIONATE 50MCG/SPRAY SOLN,NASAL,16GM Active INSTILL 1 SPRAY IN EACH NOSTRIL ONCE A DAY SHAKE GENTLY BEFORE USE! - MUST BE USED DIRECTED FOR 3 WEEKS TO PROVIDE BENEFIT. * NO EARLY REFILLS * 1UNIT = 30DAYS AT 4 PF/DAY OR 60DAYS AT 2PF/DAY 2 Dec 19, 2019 [id number] August 26, 2019 PAMELA RAMSEY KETOTIFEN 0.025% SOLN,OPH Active INSTILL 1 DROP IN BOTH EYES TWO TIMES A DAY FOR RELIEF OF ALLERGY SYMPTOMS IN EYE(S) Feb 01, 2020 [id number] September 04, [address] [facility] LANCET,SOFTCLIX Active USE LANCET BIW FOR TESTING BL OOD GLUCOSE DIRECTED 100 Sep 29, 2020 [id number] Sep 30, 2019 MAURICIO RANKIN [facility] LANCET,SOFTCLIX Discontinued USE LANCET BIW FO R TESTING BLOOD GLUCOSE DIRECTED 100 Dec 19, 2019 [id number] Jun 06, 2019 PAMELA RAMSEY [facility] LANCET,SOFTCLIX Discontinued USE LANCET BIW FO R TESTING BLOOD GLUCOSE DIRECTED Jul 25, 2019 [id number] Nov 12, 2018 PAMELA RAMSEY LISINOPRIL 40MG TAB Non- VA TAKE ONE-HALF TABLET BY MOUTH EVERY MORNING Non-VA Documented by: PAMELA RAMSEY nted at: [facility] LORATADINE/PSEUDOEPHEDRINE TAB,SA Non-VA TAKE BY MOUTH No n-VA Documented by: JUAN LANG nted at: [facility] MAGNESIUM OXIDE 400MG TAB Non-VA TAKE [...] ACID (REPLACES ACIPHEX) 180 Dec 19, 2019 [id number] August 26, 2019 PAMELA RAMSEY POLYETHYLENE GLYCOL [...] KATHERINE MATT Docume nted at: [facility] PREGABALIN 150MG CAP,ORAL Non-VA TAKE 1 CAPSULE BY MOUTH TWO TIMES A DAY Non-VA Docume nted by: PAMELA RAMSEY Docume nted at: [facility] SEMAGLUTIDE INJ,SOLN Non -VA INJECT SUBCUTANEOUSLY EVERY WEEK Non-VA Documented by: ANAYELI KIRKPATRICK Docume nted at: [facility] TERBINAFINE HCL 1% CREAM,TOP Active APPLY LIGHT LY TO AFFECTED AREA TWO TIMES A DAY FOR INFECTION Sep 23, 2020 [id number] Sep 24, 2019 ADRIEL HERNANDEZ UREA 20% CREAM,TOP Active APPLY LIGHTLY (20%) TO AFFECTED AREA TWO TIMES A DAY NEEDED TO PROMOTE HEALING,RUB IN UNTIL COMPLETELY ABSORBED*FOR TOPICAL USE ONLY* APPLY TO BOTH FEET DIRECTED. 90 Sep 25, 2020 [id number] Sep 26, 2019 ADRIEL HERNANDEZ Problems (Conditions): [...] Alcohol intake above recommended sensible limits Active 078256476 PADMA LONG [facility] Allergic conjunctivitis Active 718394739 GOSHENNEDA [facility] Bilateral senile combined form cataracts of eyes Active 49438936852 9108 [facility]ENN[facility]A [facility] Bilateral tinnitus Active 5565430197336 CHASTITY JEAN [facility] Coronary arteriosclerosis Active 03378275 September 08, 2014 Entered By: PADMA LONG Comment: hx of ptca to RCA several yrs. agoSeptember 08, 2014 Entered By: PADMA LONG Comment: heart cath 09/01/14, neg. / previous stent to RCA,, via [place] KALA JONES Juan [facility] Diabetes mellitus Active 71867537 PAMELA RAMSEY [facility] Disorder of pancreas Active 9459933 September 08, 2014 Entered By: PADMA LONG Comment: 2.5cm low density lseion in bodyMay 2014 Entered By: PADMA LONG Comment: question of communication with pancreatic ductMay 2014 Entered By: PADMA LONG Comment: favored to be cystic pancreatic cancerMay 2014 Entered By: PADMA LONG Comment: per abdominal CT 09/01/14, [place] PADMA LONG [facility] Dry eyes Active 225379051 NEDA SHAW [facility] Gastro-esophageal reflux disease without esophagitis ( SNOMED CT 203709126) Active 606700575 ALF GUEVARA [facility] History of malignant neoplasm of lung Active 842481934 CHAPO BARRETO [facility] Hyperlipidemia (SNOMED CT 30973306) Active 48887868 PAMELA RAMSEY [facility] Lung mass Active 208088396 September 08, 2014 E ntered By: PADMA LONG Comment: 4.5 cm mass, post. segment right upper lobe.September 08, 2014 Entered By: PADMA LONG Comment: mild adenopathy in mediastinum and bilat. hilaMa2014 Entered By: PADMA LONG Comment: most likely related to lung cancerMa2014 Entered By: PADMA LONG Comment: per ct angio of chest with contrast 09/01/14,[facility] Entered By: PADMA LONG Comment: per path report- mod. differentiated bronchogenic adenoca. 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 Active 19326963 KATHERINE MATT [facility] Obesity Active 433282561 SONG BULLOCK [facility] Obstructive sleep apnea syndrome (SNOMED CT 11323629) Active 438168 015 [place] ARTUR [facility] Pancreatic cyst Active 53160804 SEANJAYLENE KIM [facility] Papilloma of right eyelid Active 629074306517133 NEDA SHAW [facility] Polyp of colon Active 02686818 Jan 23 Entered By: PADMA LONG Comment: c-scope 01/17/16, multiple benign colonic polypsJun 28, 2017 Entered By: PADMA LONG Comment: c-scope,06/25/17,[facility], three benign polyps- sigmoid colon, transverse colon,cecum. see path report cprs SHARRON TORRES [facility] Pulmonary emphysema Active 13004108 0 BRIANA GAVIN [facility] Sensorineural hearing loss, bilateral Active 216404573 CHASTITY JEAN [facility] Snoring Active 52226112 SONG BULLOCK [facility] Type 2 diabetes mellitus without complication Active 549724332 NEDA SHAW [facility] Environmental [...] Inactive V77.91 Jan 18, 2007 PADMA LONG [facility] Stye * (ICD-9-CM 373.11) Inactive 373.11 Dec 18, 201 8 Jan 18, 2007 Entered By: PADMA LONG Comment: bilat lower lids, chronic/recurrent [facility] Tobacco Use Disorder, Continuous Inactive 305.1 Dec 18, 2017 Jan 18, 2007 Entered By: PADMA LONG Comment: one ppd PADMA LONG [facility] Radiology Reports: +/- 30 days of the encounter No Data Provided for This Section Pathology Reports: +/- 30 days of the encounter No Data Provided for This Section Encounter Notes: All associated encounter notes This section contains the clinical notes associated to the Encounter. Date/Time Encounter Note(s) Provider Source Nov 18, 2019 10:00 AM [facility] LOCAL TITLE: WI-OVERNIGHT OXIMETRY/CONSULT STANDARD TITLE: RESPIRATORY THERAPY HOME HEALTH CONSULT DATE OF NOTE: NOV 18, 2019@10:00 ENTRY DATE: NOV 24, 2019@09:36:32 AUTHOR: SALOMON ESTEVEZ EXP COSIGNER: URGENCY: STATUS: COMPLETED WI-OVERNIGHT OXIMETRY/CONSULT Has ADDENDA Phone call received from with concerns that he is having low SpO2 at noc with his Cpap. Decision made to do an overnoc oximetry on Room Air with his Cpap. Due to Covid-19 and distance I will mail out device today and have it programmed for to do study November 20. Overnoc oximetry set-up. Full written and verbal instructions given to on phone and mailed with device. expressed full understanding of all instructions. Prepaid, [facility] addressed box mailed to to return-mail equipment back to this clinic. Study to be done on SundayNovember 20 on Room Air with Cpap. EE# [id number] /gisell/ SALOMON ESTEVEZ Registered Respiratory Therapist Signed: 11/24/2019 09:43 11/24/2019 ADDENDUM STATUS: COMPLETED Call received from this a.m. that the study equipment for the overnoc oximetry did not arrive at his home until Sunday so he has not used it yet. also states it did not come with a return envelope to mail it back. Will mail out new device ([id number]) today and program it for SundayNov 27 with 2 return envelopes. /gisell/ SALOMON ESTEVEZ Registered Respiratory Therapist Signed: 11/24/2019 09:52 SALOMON ESTEVEZ [facility]
--- OUTSIDE RECORDS SUMMARY | 2019-12-02 13:45 | XMS REPORT | Encounter Summary ---
Author Author Department of [facility] Address [address] [place] [address] Phone Unavailable Care Team Providers Care Public Information Relations Manager Name Role Phone ADRIEL HERNANDEZ PCP Unavailable Insurance Providers: All historical and current No Data Provided for This Section Selected Encounter This section includes the information on record at [place] for the Encounter. Date/Time Encounter Type Encounter Description Reason Provider Source Nov 27, 2019 03:23 PM Outpatient Encounter COMMUNITY CARE CONSULT ARTUR BLAS [facility] IHE Encounter Template [...] 11:00 AM AMBULATORY - NONE ARTUR BLAS [facility] Dec 31, 2019 01:15 PM AMBULATORY - MEDICINE ARTUR BLAS [facility] Dec 31, 2019 01:16 PM AMBULATORY - MEDICINE ARTUR BLAS [facility] Jan 01, 2020 09:00 AM AMBULATORY - MEDICINE ARTUR BLAS [facility] Jan 07, 2020 12:00 PM AMBULATORY - MEDICINE [facility] Jan 27, 2020 01:00 PM AMBULATORY - MEDICINE MARLENE KEYS V [facility] Mar 31, 2020 09:30 AM AMBULATORY - MEDICINE [facility] Mar 31, 2020 09:31 AM AMBULATORY - MEDICINE ARTUR BLAS [facility] Mar 31, 2020 10:00 AM AMBULATORY - MEDICINE [facility] Mar 31, 2020 10:01 AM AMBULATORY - MEDICINE ARTUR BLAS [facility] Apr 07, 2020 08:00 AM AMBULATORY - NONE [facility] Active, Pending, and Scheduled Orders This [...] Nov 17, 2019 07:23 AM Consult Order [facility] [id number] Cons [employer] Salesperson's Choice [facility] Dec 15, 2019 12:00 AM Laboratory - Chemistry Order CREATININ E (INCLUDES EGFR) GREEN TOP TUBE PLASMA SP [facility] Dec 31, 2019 12:00 AM Laboratory - Chemistry Order CBC & DIF F 5 ML LAVENDER TOP BLOOD SP [facility] Dec 31, 2019 11:00 AM Imaging - CT Scan Order CT CHEST/THORA X W/CONT hx lung cancer [facility] Dec 31, 2019 11:00 AM Imaging - CT Scan Order CT ABD & PELV W/CONTRAST hx lung cancer [facility] Surgical Procedures: All associated to [...] to adverse reactions to drug (diso rder) [facility], [facility] 15 PLAVIX September 08, 2014 Propensity to adverse reactions to drug (diso rder) [facility] Medications: [facility] dispensed (-15 months) [...] TEST BLOOD GLUCOSE 50 Dec 19, 2019 [id number] September 04, 2019 PAMELA RAMSEY ACCU-CHEK CHARLES PLUS (GLUCOSE) TEST STRIP Discontinued USE 1 STRIP FOR TESTING TWO TIMES PER WEEK - DIRECTED TO TEST BLOOD GLUCOSE 50 Jul 25, 2019 [id number] Nov 12, 2018 PAMELA RAMSEY CB ALBUTEROL SO4 90MCG/ACTUAT (CFC-F) INHL,ORAL,6.7GM Active INHALE 2 PUFFS BY ORAL INHALATION EVERY 4 HOURS NEEDED FOR BREATHING. SHAKE WELL. RINSE MOUTHPIECE FREQUENTLY TO PREVENT CLOGGING. USE NEEDED FOR SHORTNESS OF AIR/WHEEZING FOR BREATHING. SHAKE WELL. RINSE MOUTHPIECE FREQUENTLY TO PREVENT CLOGGING. USE NEEDED FOR SHORTNESS OF AIR/WHEEZING 1 Dec 19, 2019 [id number] September 04, 2019 PAMELA RAMSEY ALCOHOL PREP PAD Active USE 1 PAD ON SKIN BIW TO CLEAN AND DISINFECT THE SKIN 200 Sep 29, 2020 [id number] Sep 30, 2019 MAURICIO RANKIN [facility] ALCOHOL PREP PAD Discontinued USE 1 PAD ON SKIN BI W TO CLEAN AND DISINFECT THE SKIN 200 Dec 19, 2019 [id number] Jun 06, 2019 PAMELA RAMSEY CBGUILLERMO ALCOHOL PREP PAD Discontinued USE 1 PAD ON SKIN BI W TO CLEAN AND DISINFECT THE SKIN 200 Jul 25, 2019 [id number] Nov 12, 2018 PAMELA RAMSEY ASCORBIC ACID 250MG TAB Non-VA TAKE ONE TABLET BY MOUTH ONCE A DAY Non-VA Documented by: SHANIQUA SCHMIDT nted at: [facility] ASPIRIN 25MG/DIPYRIDAMOLE 200MG CAP,SA Active T CHAPIN 1 CAPSULE BY MOUTH TWO TIMES A DAY - SWALLOW WHOLE. DO NOT CRUSH OR CHEW. FOR RECURRENT TIA/STROKE 180 Dec 19, 2019 [id number] Dec 20, 2018 PAMELA RAMSEY [facility] ASPIRIN 25MG/DIPYRIDAMOLE 200MG CAP,SA Discontinued T CHAPIN 1 CAPSULE BY MOUTH TWO TIMES A DAY - SWALLOW WHOLE. DO NOT CRUSH OR CHEW. FOR RECURRENT TIA/STROKE 180 Feb 06, 2019 [id number] Sep 28, 2018 ZACHARY GRECO [facility] ASPIRIN 81MG TAB,EC Non- [facility] TAKE ONE TABLET BY MOUTH ONCE A DAY Non-VA Documented by: PADMA LONG nted at: [facility] ATORVASTATIN CA 80MG TAB Active TAKE ONE TABLET BY MOUTH AT BEDTIME FOR CHOLESTEROL - REPORT ANY UNEXPLAINED MUSCLE PAIN/WEAKNESS TO YOUR PROVIDER 90 Dec 19, 2019 [id number] September 04, 2019 PAMELA RAMSEY ATORVASTATIN CA 80MG TAB Discontinued TAKE ONE TABLET BY MOUTH AT BEDTIME FOR CHOLESTEROL - REPORT ANY UNEXPLAINED MUSCLE PAIN/WEAKNESS TO YOUR PROVIDER 90 Dec 20, 2018 [id number] Nov 12, 2018 PAMELA RAMSEY BUDESONIDE 160MCG/FORMOTEROL FUM 4.5MCG/SPRAY INHL,ORAL,10.2 GM Active INHALE 2 PUFFS BY MOUTH TWO TIMES A DAY FOR BREATHING. SHAKE WELL. RINSE MOUTH AND SPIT AFTER EACH USE. 3 Apr 24, 2020 [id number] August 22, 2019 LISSA OATES [facility] CALCIUM/VITAMIN D TAB No n-VA TAKE BY MOUTH ONCE A DAY Non-V A Documented by: PADMA LONG nted at: [facility] CARBOXYMETHYLCELLULOSE NA 0.5% SOLN,OPH Active INSTILL ONE DROP IN BOTH EYES FOUR TIMES A DAY FOR DRY EYES 15 Feb 01, 2020 [id number] September 03 0 [facility] DICLOFENAC NA 1% GEL,TOP Discontinued APPLY 2 GRAMS A FFECTED AREA TWO TIMES A DAY NEEDED FOR PAIN AND INFLAMMATION. DO NOT EXCEED 16GM DAILY TO ANY AFFECTED JOINT OF LOWER EXTREMITIES. DO NOT EXCEED 8GM DAILY TO ANY AFFECTED JOINT OF UPPER EXTREMITES. DO NOT EXCEED TOTAL DOSE OF 32GM DAILY FOR ALL JOINTS. 100 Oct 31, 2018 [id number] Oct 06, 2018 ANAYELI KIRKPATRICK [facility] DICLOFENAC NA 1% GEL,TOP APPLY 2 GRAMS A FFECTED AREA TWO TIMES A DAY NEEDED FOR PAIN AND INFLAMMATION. DO NOT EXCEED 16GM DAILY TO ANY AFFECTED JOINT OF LOWER EXTREMITIES. DO NOT EXCEED 8GM DAILY TO ANY AFFECTED JOINT OF UPPER EXTREMITES. DO NOT EXCEED TOTAL DOSE OF 32GM DAILY FOR ALL JOINTS. 100 Jan 17, 2019 [id number] Dec 20, 2018 PAMELA RAMSEY [facility] FLUTICASONE PROPIONATE 50MCG/SPRAY SOLN,NASAL,16GM Active INSTILL 1 SPRAY IN EACH NOSTRIL ONCE A DAY SHAKE GENTLY BEFORE USE! - MUST BE USED DIRECTED FOR 3 WEEKS TO PROVIDE BENEFIT. * NO EARLY REFILLS * 1UNIT = 30DAYS AT 4 PF/DAY OR 60DAYS AT 2PF/DAY 2 Dec 19, 2019 [id number] August 26, 2019 PAMELA RAMSEY KETOTIFEN 0.025% SOLN,OPH Active INSTILL 1 DROP IN BOTH EYES TWO TIMES A DAY FOR RELIEF OF ALLERGY SYMPTOMS IN EYE(S) Feb 01, 2020 [id number] September 04, 2019 [facility] LANCET,SOFTCLIX Active USE LANCET BIW FOR TESTING BL OOD GLUCOSE DIRECTED 100 Sep 29, 2020 [id number] Sep 30, 2019 MAURICIO RANKIN [facility] LANCET,SOFTCLIX Discontinued USE LANCET BIW FO R TESTING BLOOD GLUCOSE DIRECTED 100 Dec 19, 2019 [id number] Jun 06, 2019 PAMELA RAMSEY LANCET,SOFTCLIX Discontinued USE LANCET BIW FO R TESTING BLOOD GLUCOSE DIRECTED 100 Jul 25, 2019 [id number] Nov 12, 2018 PAMELA RAMSEY LISINOPRIL 40MG TAB Non- [facility] TAKE ONE-HALF TABLET BY MOUTH EVERY MORNING Non-VA Documented by: PAMELA RAMSEY nted at: [facility] LORATADINE/PSEUDOEPHEDRINE TAB,SA Non-VA TAKE BY MOUTH No n-VA Documented by: JUAN LANGume nted at: [facility] ACID (REPLACES ACIPHEX) 180 Dec 19, 2019 [id number] August 26, 2019 PAMELA RAMSEY POLYETHYLENE GLYCOL [...] Documented by: KATHERINE MATT nted at: [facility] PREGABALIN 150MG CAP,ORAL Non-VA TAKE 1 CAPSULE BY MOUTH TWO TIMES A DAY Non-VA Docume nted by: PAMELA RAMSEY nted at: [facility] SEMAGLUTIDE INJ,SOLN Non -VA INJECT SUBCUTANEOUSLY EVERY WEEK Non-VA Documented by: ANAYELI KIRKPATRICK nted at: ARTUR BLAS [facility] TERBINAFINE HCL 1% CREAM,TOP Active APPLY LIGHT LY TO AFFECTED AREA TWO TIMES A DAY FOR INFECTION 90 Sep 23, 2020 [id number] Sep 24, 2019 ADRIEL HERNANDEZ UREA 20% CREAM,TOP Active APPLY LIGHTLY (20%) TO AFFECTED AREA TWO TIMES A DAY NEEDED TO PROMOTE HEALING,RUB IN UNTIL COMPLETELY ABSORBED*FOR TOPICAL USE ONLY* APPLY TO BOTH FEET DIRECTED. 90 Sep 25, 2020 [id number] Sep 26, 2019 ADRIEL HERNANDEZ Problems (Conditions): [...] Alcohol intake above recommended sensible limits Active 823122574 PADMA LONG [facility] Allergic conjunctivitis [facility] 818095661 [facility] Bilateral senile combined form cataracts of eyes Active 12597346515 9[facility] Bilateral tinnitus Active [id number] [facility] JEAN [facility] Coronary arteriosclerosis Active [id number] September 08, 2014 Entered By: PADMA LONG Comment: hx of ptca to RCA several yrs. agoSeptember 08, 2014 Entered By: PADMA LONG Comment: heart cath 09/01/14, neg. / previous stent to RCA,, [place] HATCHER, JENNEY R ROBERT [facility] Diabetes mellitus Active 83701135 PAMELA RAMSEY [facility] Disorder of pancreas Active 2458461 September 08, 2014 Entered By: PADMA LONG Comment: 2.5cm low density lseion in bodyMay 2014 Entered By: PADMA LONG Comment: question of communication with pancreatic ductMay 2014 Entered By: PADMA LONG Comment: favored to be cystic pancreatic cancerMay 2014 Entered By: PADMA LONG Comment: per abdominal CT 09/01/14, [place] PADMA LONG [facility] Dry eyes Active 471902726 NEDA SHAW [facility] Gastro-esophageal reflux disease without esophagitis ( SNOMED CT 360341212) Active 387458074 AFL GUEVARA [facility] History of malignant neoplasm of lung Active 449080684 CHAPO BARRETO [facility] Hyperlipidemia (SNOMED CT 41341435) Active 96796126 PAMELA RAMSEY [facility] Lung mass Active 611710753 September 08, 2014 E ntered By: PADMA LONG Comment: 4.5 cm mass, post. segment right upper lobe.September 08, 2014 Entered By: PADMA LONG Comment: mild adenopathy in mediastinum and bilat. hilaMay 2014 Entered By: PADMA LONG Comment: most likely related to lung cancerMay 2014 Entered By: PADMA LONG Comment: per ct angio of chest with contrast 09/01/14,[place] Entered By: PADMA LONG Comment: per path report- mod. differentiated bronchogenic adenoca. PADMA LONG 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 Active 76913854 KATHERINE MATT [facility] Obesity Active 976052605 [facility] Obstructive sleep apnea syndrome (SNOMED CT 83598209) Active 095932 015 [facility] Pancreatic cyst Active 22867998 JAYLENE GUEVARA [facility] Papilloma of right eyelid Active [id number] [facility] SHAW [facility] Polyp of colon Active 75662645 Jan 23 Entered By: PADMA LONG Comment: c-scope 01/17/16, multiple benign colonic polypsMar 2017 Entered By: PADMA LONG Comment: c-scope,06/25/17,[facility], three benign polyps- sigmoid colon, transverse colon,cecum. see path report cprs SHARRON TORRES [facility] Pulmonary emphysema Active 82615578 0 BRIANA GAVIN [facility] Sensorineural hearing loss, bilateral Active 073692005 [facility] Snoring Active 92099574 [facility] Type 2 diabetes mellitus without complication Active 022892713 [place] SHAWA Luda [facility] Environmental Allergies (ICD-9-CM 477.9) Inactive 477.9 Dec 18, 2017 PADMA LONG [facility] External hemorrhoids without mention of complication (ICD-9- CM 455.3) Inactive 455.3 Dec 18, 2017 PADMA LONG [facility] Impotence of organic origin (ICD-9-CM 607.84) Inactive 607.84 Dec 18, 2017 PADMA LONG [facility] Screening for Lipoid disorders (ICD-9-CM V77.91) Inactive V77.91 Jan 18, 2007 [facility] LONG [facility] Stye * (ICD-9-CM 373.11) Inactive 373.11 Dec 18, 8 Jan 18, 2007 Entered By: PADMA LONG Comment: bilat lower lids, chronic/recurrent PADMA LONG [facility] Tobacco Use Disorder, Continuous Inactive [...] Encounter. Date/Time Encounter Note(s) Provider Source Nov 27, 2019 03:23 PM NONVA NOTE: LOCAL TITLE: COMMUNITY CARE-COORDINATION NOTE CA STANDARD TITLE: NONVA NOTE DATE OF NOTE: NOV 27, 2019@15:23 ENTRY DATE: NOV 27, 2019@15:23:16 AUTHOR: YASMINE BA EXP COSIGNER: URGENCY: STATUS: COMPLETED Please enter text order for creatinine to be drawn at imaging center prior to MRI. /gisell/ YASMINE BA BSJihan Signed: 11/27/2019 15:24 Receipt Acknowledged By: * AWAITING SIGNATURE * JA QUINN * AWAITING SIGNATURE * ALF GUEVARA PHILIP [facility]
--- OUTSIDE RECORDS SUMMARY | 2019-12-02 13:45 | XMS REPORT | Encounter Summary ---
Author Author [facility] Organization Department of [facility] Address [address] [place] [address] Phone Unavailable Care Team Providers Care Pinion And Wheel Truer Name Role Phone ADRIEL HERNANDEZ PCP Unavailable Insurance Providers: All historical and current No Data Provided for This Section Selected Encounter This section includes the information on record at [place] for the Encounter. Date/Time Encounter Type Encounter Description Reason Provider Source Nov 11, 2019 12:00 AM Outpatient Encounter COMMUNITY CARE CONSULT [facility] Encounter Template Text not used by [...] PM AMBULATORY - MEDICINE ARTUR BLAS V [facility] Dec 31, 2019 01:16 PM AMBULATORY - MEDICINE ARTUR BLAS V [facility] Jan 01, 2020 09:00 AM AMBULATORY - MEDICINE ARTUR BLAS V [facility] Jan 07, 2020 12:00 PM AMBULATORY - MEDICINE [facility] Jan 27, 2020 01:00 PM AMBULATORY - MEDICINE MARLENE KEYS V [facility] Mar 31, 2020 09:30 AM AMBULATORY - MEDICINE [facility] [facility] Mar 31, 2020 09:31 AM AMBULATORY - MEDICINE ARTUR BLAS V [facility] Mar 31, 2020 10:00 AM AMBULATORY - MEDICINE [facility] Mar 31, 2020 10:01 AM AMBULATORY - MEDICINE ARTUR BLAS V [facility] Apr 07, 2020 08:00 AM AMBULATORY - NONE [place] [facility] Active, Pending, and Scheduled Orders This [...] the Encounter. The data comes from all [facility]. Test Date/Time Test Type Test Details Facility Name Nov 17, 2019 07:23 AM Consult Order [facility] [id number] Cons Biology Lecturer's Choice [facility] Dec 15, 2019 12:00 AM Laboratory - Chemistry Order CREATININ E (INCLUDES EGFR) GREEN TOP TUBE PLASMA SP [facility] Surgical Procedures: All associated to the [...] to adverse reactions to drug (diso rder) [facility], [facility] 15 PLA[place] September 08, 2014 Propensity to adverse reactions to drug (diso rder) [facility], [facility] 15 Medications: [facility] dispensed (-15 months) [...] TEST BLOOD GLUCOSE 50 Dec 19, 2019 [id number] September 04, 2019 PAMELA RAMSEY ACCU-CHEK CHARLES PLUS (GLUCOSE) TEST STRIP Discontinued USE 1 STRIP FOR TESTING TWO TIMES PER WEEK - DIRECTED TO TEST BLOOD GLUCOSE 50 Jul 25, 2019 [id number] Nov 12, 2018 PAMELA RAMSEY ALBUTEROL SO4 90MCG/ACTUAT (CFC-F) INHL,ORAL,6.7GM Active INHALE 2 PUFFS BY ORAL INHALATION EVERY 4 HOURS NEEDED FOR BREATHING. SHAKE WELL. RINSE MOUTHPIECE FREQUENTLY TO PREVENT CLOGGING. USE NEEDED FOR SHORTNESS OF AIR/WHEEZING FOR BREATHING. SHAKE WELL. RINSE MOUTHPIECE FREQUENTLY TO PREVENT CLOGGING. USE NEEDED FOR SHORTNESS OF AIR/WHEEZING 1 Dec 19, 2019 [id number] September 04, 2019 PAMELA RAMSEY ALCOHOL PREP PAD Active USE 1 PAD ON SKIN BIW TO CLEAN AND DISINFECT THE SKIN 200 Sep 29, 2020 [id number] Sep 30, 2019 MAURICIO RANKIN [facility] N[facility] ALCOHOL PREP PAD Discontinued USE 1 PAD ON SKIN BI W TO CLEAN AND DISINFECT THE SKIN 200 Dec 19, 2019 [id number] Jun 06, 2019 PAMELA RAMSEY ALCOHOL PREP PAD Discontinued USE 1 PAD ON SKIN BI W TO CLEAN AND DISINFECT THE SKIN 200 Jul 25, 2019 [id number] Nov 12, 2018 PAMELA RAMSEY ASCORBIC ACID 250MG TAB Non-VA TAKE ONE TABLET BY MOUTH ONCE A DAY Non-VA Documented by: SHANIQUA SCHMIDT nted at: [facility] ASPIRIN 25MG/DIPYRIDAMOLE 200MG CAP,SA Active T CHAPIN 1 CAPSULE BY MOUTH TWO TIMES A DAY - SWALLOW WHOLE. DO NOT CRUSH OR CHEW. FOR RECURRENT TIA/STROKE 180 Dec 19, 2019 [id number] Dec 20, 2018 PAMELA RAMSEY ASPIRIN 25MG/DIPYRIDAMOLE 200MG CAP,SA Discontinued T CHAPIN 1 CAPSULE BY MOUTH TWO TIMES A DAY - SWALLOW WHOLE. DO NOT CRUSH OR CHEW. FOR RECURRENT TIA/STROKE 180 Feb 06, 2019 [id number] Sep 28, 2018 ZACHARY GRECO ASPIRIN 81MG TAB,EC Non- [place] TAKE ONE TABLET BY MOUTH ONCE A DAY Non-VA Documented by: PADMA LONG nted at: [facility] ATORVASTATIN CA 80MG TAB Active TAKE ONE TABLET BY MOUTH AT BEDTIME FOR CHOLESTEROL - REPORT ANY UNEXPLAINED MUSCLE PAIN/WEAKNESS TO YOUR PROVIDER 90 Dec 19, 2019 [id number] September 04, 2019 PAMELA RAMSEY ATORVASTATIN CA 80MG TAB Discontinued TAKE ONE TABLET BY MOUTH AT BEDTIME FOR CHOLESTEROL - REPORT ANY UNEXPLAINED MUSCLE PAIN/WEAKNESS TO YOUR PROVIDER 90 Dec 20, 2018 [id number] Nov 12, 2018 PAMELA RAMSEY BUDESONIDE 160MCG/FORMOTEROL FUM 4.5MCG/SPRAY INHL,ORAL,10.2 GM Active INHALE 2 PUFFS BY MOUTH TWO TIMES A DAY FOR BREATHING. SHAKE WELL. RINSE MOUTH AND SPIT AFTER EACH USE. 3 Apr 24, 2020 [id number] August 22, 2019 [facility] CALCIUM/VITAMIN D TAB No n-VA TAKE BY MOUTH ONCE A DAY Non-V A Documented by: PADMA LONG nted at: [facility] CARBOXYMETHYLCELLULOSE NA 0.5% SOLN,OPH Active INSTILL ONE DROP IN BOTH EYES FOUR TIMES A DAY FOR DRY EYES 15 Feb 01, 2020 [id number] September 03 0 [facility] DICLOFENAC NA 1% GEL,TOP Discontinued APPLY 2 GRAMS A FFECTED AREA TWO TIMES A DAY NEEDED FOR PAIN AND INFLAMMATION. DO NOT EXCEED 16GM DAILY TO ANY AFFECTED JOINT OF LOWER EXTREMITIES. DO NOT EXCEED 8GM DAILY TO ANY AFFECTED JOINT OF UPPER EXTREMITES. DO NOT EXCEED TOTAL DOSE OF 32GM DAILY FOR ALL JOINTS. 100 Oct 31, 2018 [id number] Oct 06, 2018 ANAYELI KIRKPATRICK [facility] DICLOFENAC NA 1% GEL,TOP APPLY 2 GRAMS A FFECTED AREA TWO TIMES A DAY NEEDED FOR PAIN AND INFLAMMATION. DO NOT EXCEED 16GM DAILY TO ANY AFFECTED JOINT OF LOWER EXTREMITIES. DO NOT EXCEED 8GM DAILY TO ANY AFFECTED JOINT OF UPPER EXTREMITES. DO NOT EXCEED TOTAL DOSE OF 32GM DAILY FOR ALL JOINTS. 100 Jan 17, 2019 [id number] Dec 20, 2018 PAMELA RAMSEY FLUTICASONE PROPIONATE 50MCG/SPRAY SOLN,NASAL,16GM Active INSTILL 1 SPRAY IN EACH NOSTRIL ONCE A DAY SHAKE GENTLY BEFORE USE! - MUST BE USED DIRECTED FOR 3 WEEKS TO PROVIDE BENEFIT. * NO EARLY REFILLS * 1UNIT = 30DAYS AT 4 PF/DAY OR 60DAYS AT 2PF/DAY 2 Dec 19, 2019 [id number] August 26, 2019 PAMELA RAMSEY KETOTIFEN 0.025% SOLN,OPH Active INSTILL 1 DROP IN BOTH EYES TWO TIMES A DAY FOR RELIEF OF ALLERGY SYMPTOMS IN EYE(S) 10 Feb 01, 2020 [id number] September 04, 2019 [facility] [facility] LANCET,SOFTCLIX Active USE LANCET BIW FOR TESTING BL OOD GLUCOSE DIRECTED 100 Sep 29, 2020 [id number] Sep 30, 2019 MAURICIO RANKIN [facility] LANCET,SOFTCLIX Discontinued USE LANCET BIW FO R TESTING BLOOD GLUCOSE DIRECTED 100 Dec 19, 2019 [id number] Jun 06, 2019 PAMELA RAMSEY LANCET,SOFTCLIX Discontinued USE LANCET BIW FO R TESTING BLOOD GLUCOSE DIRECTED 100 Jul 25, 2019 [id number] Nov 12, 2018 PAMELA RAMSEY LISINOPRIL 40MG TAB Non- VA TAKE ONE-HALF TABLET BY MOUTH EVERY MORNING Non-VA Documented by: PAMELA RAMSEY nted at: [facility] LORATADINE/PSEUDOEPHEDRINE TAB,SA Non-VA TAKE BY MOUTH No n-VA Documented by: JUAN LANG nted at: ARTUR BLAS [facility] MAGNESIUM OXIDE 400MG TAB Non-VA TAKE [...] ONCE A DAY Non-VA Documented by: SHANIQUA SCHMDIT nted at: [facility] ENSS OMEPRAZOLE 20MG CAP,EC Active TAKE 2 CAPSULES B Y MOUTH BEFORE BREAKFAST 30 MINUTES BEFORE EATING TO LOWER STOMACH ACID (REPLACES ACIPHEX) 180 Dec 19, 2019 [id number] August 26, 2019 PAMELA RAMSEY POLYETHYLENE GLYCOL [...] Documented by: KATHERINE MATT Docume nted at: [facility] PREGABALIN 150MG CAP,ORAL Non-VA TAKE 1 CAPSULE BY MOUTH TWO TIMES A DAY Non-VA Docume nted by: PAMELA RAMSEY Docume nted at: [facility] SEMAGLUTIDE INJ,SOLN Non -VA INJECT SUBCUTANEOUSLY EVERY WEEK Non-VA Documented by: ANAYELI KIRKPATRICK Docume nted at: ARTUR BLAS [facility] TERBINAFINE HCL 1% CREAM,TOP Active APPLY LIGHT LY TO AFFECTED AREA TWO TIMES A DAY FOR INFECTION Sep 23, 2020 [id number] Sep 24, 2019 ADRIEL HERNANDEZ UREA 20% CREAM,TOP Active APPLY LIGHTLY (20%) TO AFFECTED AREA TWO TIMES A DAY NEEDED TO PROMOTE HEALING,RUB IN UNTIL COMPLETELY ABSORBED*FOR TOPICAL USE ONLY* APPLY TO BOTH FEET DIRECTED. 90 Sep 25, 2020 [id number] Sep 26, 2019 ADRIEL HERNANDEZ Problems (Conditions): [...] Alcohol intake above recommended sensible limits Active [id number] [facility] Allergic conjunctivitis Active 570181551 [facility] Bilateral senile combined form cataracts of eyes Active [id number] [address] [facility] Bilateral tinnitus Active [id number] CHASTITY [facility] Coronary arteriosclerosis Active [id number] September 08, 2014 Entered By: PADMA LONG Comment: hx of ptca to RCA several yrs. agoMay 2014 Entered By: PADMA LONG Comment: heart cath 09/01/14, neg. / previous stent to RCA,, via abida meneses ks HATCHER, JENNEY R [facility] Diabetes mellitus Active 82033940 BRAULIOPAMELA TOMAS [facility] Disorder of pancreas Active 2283774 September 08, 2014 Entered By: PADMA LONG Comment: 2.5cm low density lseion in bodyMay 2014 Entered By: PADMA LONG Comment: question of communication with pancreatic ductMay 2014 Entered By: PADMA LONG Comment: favored to be cystic pancreatic cancerMay 2014 Entered By: PADMA LONG Comment: per abdominal CT 09/01/14, via abida meneses ks FRAZIER, JAY J [facility] Dry eyes Active 181285445 [facility] Gastro-esophageal reflux disease without esophagitis ( SNOMED CT 419060376) Active 580165545 ALF GUEVARA [facility] History of malignant neoplasm of lung Active 346437562 CHAPO BARRETO [facility] Hyperlipidemia (SNOMED CT 08493418) Active 88510901 BRAULIOPAMELA TOMAS [facility] Lung mass Active 324247146 September 08, 2014 E ntered By: PADMA [...] report- mod. differentiated bronchogenic adenoca. 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 Pancreatic cyst Active 94508665 [place] Papilloma of right eyelid Active [id number] [facility] Polyp of colon Active 33313671 Jan 23 Entered By: PADMA LONG Comment: c-scope 01/17/16, multiple benign colonic polypsJun 28, 2017 Entered By: PADMA LONG Comment: c-scope,06/25/17,health system, three benign polyps- sigmoid colon, transverse colon,cecum. see path report cprs SHARRON [facility]ORRES [facility] Pulmonary emphysema Active 67637279 [address] [facility] Sensorineural hearing loss, bilateral Active 193537935 SLECHAST[address] [facility] Snoring Active 08776653 [facility] Type 2 diabetes mellitus without complication Active 070280796 [facility] SHAW [facility] Environmental Allergies (ICD-9-CM 477.9) Inactive 477.9 Dec 18, 2017 [facility] External hemorrhoids without mention of complication (ICD-9- CM 455.3) Inactive 455.3 Dec 18, 2017 [facility] Impotence of organic origin (ICD-9-CM 607.84) Inactive 607.84 Dec 18, 2017 [facility] Screening for Lipoid disorders (ICD-9-CM V77.91) Inactive V77.91 Jan 18, 2007 [facility] Stye * (ICD-9-CM 373.11) Inactive 373.11 Dec 18, 201 8 Jan 18, 2007 Entered By: PADMA LONG Comment: bilat lower lids, chronic/recurrent [facility] Tobacco Use Disorder, Continuous Inactive 305.1 Dec 18, 2017 Jan 18, 2007 Entered By: PADMA LONG Comment: one ppd PADMA LONG [facility] Radiology Reports: +/- 30 days of [...] 11.11.19 ED VISIT/IP STAY /es/ [facility] Signed: 11/27/2019 16:07 KEM MCLAIN [facility]
--- OUTSIDE RECORDS SUMMARY | 2019-12-02 13:45 | XMS REPORT | Encounter Summary ---
Author Author Department of [facility] rsHERBERTH Organization Department of [facility] Address [address] [place] [address] Phone Unavailable Care Team Providers Care Mottle Lay Up Operator Name Role Phone ADRIEL HERNANDEZ PCP Unavailable Insurance Providers: All historical and current No Data Provided for This Section Selected Encounter This section includes the information on record at CT for the Encounter. Date/Time Encounter Type Encounter Description Reason Provider Source Nov 27, 2019 03:54 PM Outpatient Encounter TELEPHONE PRIMARY CAR E ICD-10-CM Z71.89 Other specified counseling with Provider Comments: Other specified counseling SHANIQUA SCHMIDT [facility] IHE Encounter Template Text not used by CT Assessments - Encounter Diagnoses This section includes the primary and secondary diag noses documented for the Encounter. Date/Time Primary/Secondary Diagnosis Diagnosis Name Provider Source Nov 27, 2019 03:54 PM PRIMARY Other specified counseling SHANIQUA SCHMIDT [facility] Plan of Treatment: Future Appointments (+ 6 [...] nts. The data comes from all [facility]. Appointment Date/Time Appointment Type Appointment Facili ty Name Dec 31, 2019 11:00 AM AMBULATORY - NONE [facility] Dec 31, 2019 01:15 PM AMBULATORY - MEDICINE [facility] Dec 31, 2019 01:16 PM AMBULATORY - MEDICINE [facility] Jan 01, 2020 09:00 AM AMBULATORY - MEDICINE [facility] Jan 07, 2020 12:00 PM AMBULATORY - MEDICINE [facility] Jan 27, 2020 01:00 PM AMBULATORY - MEDICINE [facility] Mar 31, 2020 09:30 AM AMBULATORY - MEDICINE [facility] Mar 31, 2020 09:31 AM AMBULATORY - MEDICINE [facility] Mar 31, 2020 10:00 AM AMBULATORY - MEDICINE [facility] Mar 31, 2020 10:01 AM AMBULATORY - MEDICINE [facility] Apr 07, 2020 08:00 AM AMBULATORY - NONE [facility] Active, Pending, and Scheduled Orders [...] the Encounter. The data comes from all [facility]. Test Date/Time Test Type Test Details Facility Name Nov 17, 2019 07:23 AM Consult Order [facility] [id number] Cons Behavior Specialist's Choice [facility] Shu [facility] Dec 15, 2019 12:00 AM Laboratory - Chemistry Order CREATININ E (INCLUDES EGFR) GREEN TOP TUBE PLASMA SP [place] Shu [facility] Dec 31, 2019 12:00 AM Laboratory - Chemistry Order CBC & DIF F 5 ML LAVENDER TOP BLOOD SP [facility] Dec 31, 2019 11:00 AM Imaging - CT Scan Order CT CHEST/THORA X W/CONT hx lung cancer [place] Shu [facility] Dec 31, 2019 11:00 AM Imaging - CT Scan Order CT ABD & PELV W/CONTRAST hx lung cancer [facility] Surgical Procedures: All associated to the [...] place. Date/Time Smoking Status/Tobacco Use Comment [facility] Nov 23, 2017 09:51 AM CURRENT [...] Adverse Reactions (ADR s) on record with CT for the patient. The data comes from a ll CT treatment facilities. It does not list Allergies/ADRs that were removed or entered in error. Some allergies/ADRs may be reported in t he Immunization section. Allergen Event Date Event Type Reaction(s) Severity Source [place] September 08, 2014 Propensity to adverse reactions to drug (diso rder) [facility], [facility] 15 [place] September 08, 2014 Propensity to adverse reactions to drug (diso rder) [facility], [facility] 15 Medications: [...] TEST BLOOD GLUCOSE 50 Dec 19, 2019 [id number] September 04, 2019 PAMELA RAMSEY CBGUILLERMO ACCU-CHEK CHARLES PLUS (GLUCOSE) TEST STRIP Discontinued USE 1 STRIP FOR TESTING TWO TIMES PER WEEK - DIRECTED TO TEST BLOOD GLUCOSE 50 Jul 25, 2019 [id number] Nov 12, 2018 PAMELA RAMSEY CBGUILLERMO ALBUTEROL SO4 90MCG/ACTUAT (CFC-F) INHL,ORAL,6.7GM Active INHALE 2 PUFFS BY ORAL INHALATION EVERY 4 HOURS NEEDED FOR BREATHING. SHAKE WELL. RINSE MOUTHPIECE FREQUENTLY TO PREVENT CLOGGING. USE NEEDED FOR SHORTNESS OF AIR/WHEEZING FOR BREATHING. SHAKE WELL. RINSE MOUTHPIECE FREQUENTLY TO PREVENT CLOGGING. USE NEEDED FOR SHORTNESS OF AIR/WHEEZING 1 Dec 19, 2019 [id number] September 04, 2019 PAMELA RAMSEY ALCOHOL PREP PAD Active USE 1 PAD ON SKIN BIW TO CLEAN AND DISINFECT THE SKIN 200 Sep 29, 2020 [id number] Sep 30, 2019 MAURICIO RANKIN [facility] ALCOHOL PREP PAD Discontinued USE 1 PAD ON SKIN BI W TO CLEAN AND DISINFECT THE SKIN 200 Dec 19, 2019 [id number] Jun 06, 2019 PAMELA RAMSEY ALCOHOL PREP PAD Discontinued USE 1 PAD ON SKIN BI W TO CLEAN AND DISINFECT THE SKIN 200 Jul 25, 2019 [id number] Nov 12, 2018 PAMELA RAMSEY ASCORBIC ACID 250MG TAB Non-VA TAKE ONE TABLET BY MOUTH ONCE A DAY Non-VA Documented by: SHANIQUA SCHMIDT nted at: [facility] ASPIRIN 25MG/DIPYRIDAMOLE 200MG CAP,SA Active T CHAPIN 1 CAPSULE BY MOUTH TWO TIMES A DAY - SWALLOW WHOLE. DO NOT CRUSH OR CHEW. FOR RECURRENT TIA/STROKE 180 Dec 19, 2019 [id number] Dec 20, 2018 PAMELA RAMSEY [facility] ASPIRIN 25MG/DIPYRIDAMOLE 200MG CAP,SA Discontinued T CHAPIN 1 CAPSULE BY MOUTH TWO TIMES A DAY - SWALLOW WHOLE. DO NOT CRUSH OR CHEW. FOR RECURRENT TIA/STROKE 180 Feb 06, 2019 [id number] Sep 28, 2018 ZACHARY GRECO [facility] ASPIRIN 81MG TAB,EC Non- VA TAKE ONE TABLET BY MOUTH ONCE A DAY Non-VA Documented by: PADMA LONG nted at: [facility] ATORVASTATIN CA 80MG TAB Active TAKE ONE TABLET BY MOUTH AT BEDTIME FOR CHOLESTEROL - REPORT ANY UNEXPLAINED MUSCLE PAIN/WEAKNESS TO YOUR PROVIDER 90 Dec 19, 2019 [id number] September 04, 2019 PAMELA RAMSEY ATORVASTATIN CA 80MG TAB Discontinued TAKE ONE TABLET BY MOUTH AT BEDTIME FOR CHOLESTEROL - REPORT ANY UNEXPLAINED MUSCLE PAIN/WEAKNESS TO YOUR PROVIDER 90 Dec 20, 2018 [id number] Nov 12, 2018 PAMELA RMASEY BUDESONIDE 160MCG/FORMOTEROL FUM 4.5MCG/SPRAY INHL,ORAL,10.2 GM Active INHALE 2 PUFFS BY MOUTH TWO TIMES A DAY FOR BREATHING. SHAKE WELL. RINSE MOUTH AND SPIT AFTER EACH USE. 3 Apr 24, 2020 [id number] August 22, 2019 LISSA OATES [facility] CALCIUM/VITAMIN D TAB No n-VA TAKE BY MOUTH ONCE A DAY Non-V A Documented by: PADMA LONG nted at: [facility] CARBOXYMETHYLCELLULOSE NA 0.5% SOLN,OPH Active INSTILL ONE DROP IN BOTH EYES FOUR TIMES A DAY FOR DRY EYES 15 Feb 01, 2020 [id number] September 03 0 [facility] DICLOFENAC NA 1% GEL,TOP Discontinued APPLY 2 GRAMS A FFECTED AREA TWO TIMES A DAY NEEDED FOR PAIN AND INFLAMMATION. DO NOT EXCEED 16GM DAILY TO ANY AFFECTED JOINT OF LOWER EXTREMITIES. DO NOT EXCEED 8GM DAILY TO ANY AFFECTED JOINT OF UPPER EXTREMITES. DO NOT EXCEED TOTAL DOSE OF 32GM DAILY FOR ALL JOINTS. 100 Oct 31, 2018 [id number] Oct 06, 2018 ANAYELI KIRKPATRICK [facility] [...] FOR ALL JOINTS. 100 Jan 17, 2019 [id number] Dec 20, 2018 PAMELA RAMSEY FLUTICASONE PROPIONATE 50MCG/SPRAY SOLN,NASAL,16GM Active INSTILL 1 SPRAY IN EACH NOSTRIL ONCE A DAY SHAKE GENTLY BEFORE USE! - MUST BE USED DIRECTED FOR 3 WEEKS TO PROVIDE BENEFIT. * NO EARLY REFILLS * 1UNIT = 30DAYS AT 4 PF/DAY OR 60DAYS AT 2PF/DAY 2 Dec 19, 2019 [id number] August 26, 2019 PAMELA RAMSEY KETOTIFEN 0.025% SOLN,OPH Active INSTILL 1 DROP IN BOTH EYES TWO TIMES A DAY FOR RELIEF OF ALLERGY SYMPTOMS IN EYE(S) Feb 01, 2020 [id number] September 04, 2019 [facility] LANCET,SOFTCLIX Active USE LANCET BIW FOR TESTING BL OOD GLUCOSE DIRECTED 100 Sep 29, 2020 [id number] Sep 30, 2019 MAURICIO RANKIN [facility] LANCET,SOFTCLIX Discontinued USE LANCET BIW FO R TESTING BLOOD GLUCOSE DIRECTED 100 Dec 19, 2019 [id number] Jun 06, 2019 PAMELA RAMSEY LANCET,SOFTCLIX Discontinued USE LANCET BIW FO R TESTING BLOOD GLUCOSE DIRECTED 100 Jul 25, 2019 [id number] Nov 12, 2018 PAMELA RAMSEY LISINOPRIL 40MG TAB Non- VA TAKE ONE-HALF TABLET BY MOUTH EVERY MORNING Non-VA Documented by: PAMELA RAMSEY nted at: [facility] LORATADINE/PSEUDOEPHEDRINE TAB,SA Non-VA TAKE BY MOUTH No n-VA Documented by: JUAN LANG nted at: [facility] MAGNESIUM OXIDE 400MG TAB Non-VA [...] ACID (REPLACES ACIPHEX) 180 Dec 19, 2019 [id number] August 26, 2019 PAMELA RAMSEY POLYETHYLENE GLYCOL [...] Documented by: KATHERINE MATT Docume nted at: [facility] PREGABALIN 150MG CAP,ORAL Non-VA TAKE 1 CAPSULE BY MOUTH TWO TIMES A DAY Non-VA Docume nted by: PAMELA RAMSEYume nted at: [facility] SEMAGLUTIDE INJ,SOLN Non -VA INJECT SUBCUTANEOUSLY EVERY WEEK Non-VA Documented by: ANAYELI KIRKPATRICK Docume nted at: [facility] [place] [facility] TERBINAFINE HCL 1% CREAM,TOP Active APPLY LIGHT LY TO AFFECTED AREA TWO TIMES A DAY FOR INFECTION 90 Sep 23, 2020 [id number] Sep 24, 2019 ADRIEL HERNANDEZ UREA 20% CREAM,TOP Active APPLY LIGHTLY (20%) TO AFFECTED AREA TWO TIMES A DAY NEEDED TO PROMOTE HEALING,RUB IN UNTIL COMPLETELY ABSORBED*FOR TOPICAL USE ONLY* APPLY TO BOTH FEET DIRECTED. 90 Sep 25, 2020 [id number] Sep 26, 2019 ADRIEL HERNANDEZ Problems (Conditions): [...] Alcohol intake above recommended sensible limits Active 581518593 PADMA LONG [facility] Allergic conjunctivitis Active 220184762 [facility] Bilateral senile combined form cataracts of eyes Active 04370621624 9108 [facility] Bilateral tinnitus Active [id number] [facility] Coronary arteriosclerosis Active 72124100 September 08, 2014 Entered By: PADMA LONG Comment: hx of ptca to RCA several yrs. agoSeptember 08, 2014 Entered By: PADMA LONG Comment: heart cath 09/01/14, neg. / previous stent to RCA,, via abida meneses ks HATCHER, JENNEY R ROBERT [facility] Diabetes mellitus Active 44008408 B[facility] Disorder of pancreas Active 3813884 September 08, 2014 Entered By: PADMA LONG Comment: 2.5cm low density lseion in bodyMay 2014 Entered By: PADMA LONG Comment: question of communication with pancreatic ductMay 2014 Entered By: PADMA LONG Comment: favored to be cystic pancreatic cancerMay 2014 Entered By: PADMA LONG Comment: per abdominal CT 09/01/14, via mary menesessan [place], ks PADMA LONG [facility] Dry eyes Active 363667971 [facility] Gastro-esophageal reflux disease without esophagitis ( SNOMED CT 345919400) Active 132120613 ALF [facility] History of malignant neoplasm of lung Active 349457913 [facility] Hyperlipidemia (SNOMED CT 06750601) Active 73990968 PAMELA RAMSEY [facility] Lung mass Active 238815076 September 08, 2014 E ntered By: PADMA LONG Comment: 4.5 cm mass, post. segment right upper lobe.September 08, 2014 Entered By: PADMA LONG Comment: mild adenopathy in mediastinum and bilat. [email or web address] Entered By: PADMA LONG Comment: most likely related to lung cancerMa2014 Entered By: PADMA LONG Comment: per ct angio of chest with contrast 09/01/14,via abida menesesalJun 2014 Entered By: PADMA LONG Comment: per path report- mod. differentiated bronchogenic adenoca. 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 Active 17737142 KATHERINE MATT [facility] Obesity Active 076901851 [place] [facility] Obstructive sleep apnea syndrome (SNOMED CT 49086200) Active 610020 015 [place] [facility] Pancreatic cyst Active 33921672 JAYLENE GUEVARA Juan M [facility] Papilloma of right eyelid Active [id number] [facility]INF[facility]DONEDA J [facility] Polyp of colon Active 92014704 Jan 23 Entered By: PADMA LONG Comment: c-scope 01/17/16, multiple benign colonic polypsJun 28, 2017 Entered By: PADMA LONG Comment: c-scope,06/25/17,[facility], three benign polyps- sigmoid colon, transverse colon,cecum. see path report cprs BRIANSHARRON Mila [facility] Pulmonary emphysema Active 33454550 0 BRIANA LESLYE [facility] Sensorineural hearing loss, bilateral Active 009429863 [facility] Snoring Active 42155518 [facility] [place] [facility] Type 2 diabetes mellitus without complication Active 662312535 [facility] Environmental Allergies (ICD-9-CM 477.9) Inactive 477.9 Dec 18, 2017 PADMA LONG [facility] External hemorrhoids without mention of complication (ICD-9- CM 455.3) Inactive 455.3 Dec 18, 2017 PADMA LONG [facility] Impotence of organic origin (ICD-9-CM 607.84) Inactive 607.84 Dec 18, 2017 PADMA LONG [facility] Screening for Lipoid disorders (ICD-9-CM V77.91) Inactive V77.91 Jan 18, 2007 PADMA LONG [facility] Stye * (ICD-9-CM 373.11) Inactive 373.11 Dec 18, 201 8 Jan 18, 2007 Entered By: PADMA LONG Comment: bilat lower lids, chronic/recurrent PADMA LONG [facility] Tobacco Use Disorder, Continuous Inactive 305.1 Dec 18, 2017 Jan 18, 2007 Entered By: PADMA LONG Comment: one ppd PADMA LONG [facility] Radiology Reports: +/- 30 days of the encounter No Data Provided for This Section Pathology Reports: +/- 30 days of the encounter No Data Provided for This Section Encounter Notes: All associated encounter notes This section contains the clinical notes associated to the Encounter. Date/Time Encounter Note(s) Provider Source Nov 27, 2019 03:56 PM PRIMARY CARE TELEPHONE ENCOU NTER NOTE: LOCAL TITLE: WI-TELEPHONE/PRIMARY CARE STANDARD TITLE: PRIMARY CARE TELEPHONE ENCOUNTER NOTE DATE OF NOTE: NOV 27, 2019@15:56 ENTRY DATE: NOV 27, 2019@15:57 AUTHOR: SHANIQUA SCHMIDT EXP COSIGNER: URGENCY: STATUS: COMPLETED 3 minutes spent on the phone with tylor leo Pt called to report he went to Urgent Care at [facility] in [place] yesterday for c/o GI issues since 11/10. Reported diarrhea daily, nausea and belching. Pt reported he had labs, UA and stool sample and was given a prescription to have filled. Reported he is feeling a littel better today. /gisell/ SHANIQUA SCHMIDT RN Signed: 11/27/2019 15:59 SHANIQUA SCHMIDT OC
--- OUTSIDE RECORDS SUMMARY | 2019-12-02 13:46 | XMS REPORT | Encounter Summary ---
Author [facility] [employer] Address [address] [place] [address] Phone Unavailable Care Team Providers Care Resident Care Assistant Name Role Phone ADRIEL HERNANDEZ PCP Unavailable Insurance Providers: All historical and current No Data Provided for This Section Selected Encounter This section includes the information on record at [place] for the Encounter. 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 Date/Time Primary/Secondary Diagnosis Diagnosis Name Provider Source Nov 14, 2019 11:03 AM PRIMARY Congenital pancreatic cyst [facility] Nov 14, 2019 11:03 AM SECONDARY Personal history o f malignant neoplasm of bronchus and lung [facility] Plan of Treatment: Future Appointments (+ [...] 11:00 AM AMBULATORY - NONE [facility] Jul 25, 2019 08:00 AM AMBULATORY - NONE [facility] Aug 07, 2019 10:30 AM AMBULATORY - MEDICINE [facility] Sep 23, 2019 11:15 AM AMBULATORY - NONE [facility] Sep 23, 2019 11:30 AM AMBULATORY - MEDICINE [facility] Oct 07, 2019 09:15 AM AMBULATORY - NONE [facility] T, VISN 15 Active, Pending, [...] the Encounter. The data comes from all [facility]. Test Date/Time Test Type Test Details Facility Name Jun 18, 2019 10:07 AM Consult Order [facility] CARDIOLOGY-[id number] [place] [employer] Supervisor's Choice [facility] Surgical Procedures: All associated to [...] Jun 25, 2019 10:48 AM [facility] CBC & DIFF Specimen Type: BLOOD [...] Jun 25, 2019 10:40 AM [facility] CA 19-9 Specimen Type: SERUM Comment: CA 19-9 This test was performed using the Siemens chemiluminescent method. Values obtained from different assay methods cannot be used inter- changeably. CA 19-9 levels, regardless of value, should not be interpreted as absolute evidence of the presence or absence of disease. CA 19-9 7 U/mL <34 Jun 25, 2019 10:40 AM [facility] COMPREHENSIVE METABOLI C PANEL Specimen Type: PLASMA [...] Jun 25, 2019 10:40 AM [facility] CREATININE (INCLUDES E GFR) Specimen Type: PLASMA [...] /min 3 223.8 lb 31 [facility] Immunizations: All administered on the encounter [...] Smoking Status/Tobacco Use Comment [facility] Jun 26, 2018 02:13 PM [place]-TOBACCO QUIT 15 YRS OR MORE [facility] Jun 27, 2017 01:39 PM NON-TOBACCO USER [facility] Jun 27, 2017 01:16 PM NON-TOBACCO USER [facility] Jan 06, 2015 02:07 PM NON-TOBACCO USER [facility] Nov 23, 2014 10:38 AM NON-TOBACCO USER [facility] Oct 26, 2014 10:36 AM NON-TOBACCO USER [facility] Oct 14, 2014 11:09 AM NON-TOBACCO USER [facility] C Advance Directives: All historical and [...] to drug (diso rder) [facility] September 08, 2014 Propensity to adverse reactions to drug (diso rder) [facility], V[facility] 15 Medications: VA dispensed (-15 months) and Non-VA Documented (Obtained Outside V A) Section Date Range: 1) prescriptions processed by a [facility] pharmacy in the last [address] [facility], and 2) all medications recorded [...] TEST BLOOD GLUCOSE 50 Dec 19, 2019 [id number] September 04, 2019 PAMELA RAMSEY ACCU-CHEK CHARLES PLUS (GLUCOSE) TEST STRIP Discontinued USE 1 STRIP FOR TESTING TWO TIMES PER WEEK - DIRECTED TO TEST BLOOD GLUCOSE 50 Jul 25, 2019 [id number] Nov 12, 2018 PAMELA RAMSEY ALBUTEROL SO4 90MCG/ACTUAT (CFC-F) INHL,ORAL,6.7GM Active INHALE 2 PUFFS BY ORAL INHALATION EVERY 4 HOURS NEEDED FOR BREATHING. SHAKE WELL. RINSE MOUTHPIECE FREQUENTLY TO PREVENT CLOGGING. USE NEEDED FOR SHORTNESS OF AIR/WHEEZING FOR BREATHING. SHAKE WELL. RINSE MOUTHPIECE FREQUENTLY TO PREVENT CLOGGING. USE NEEDED FOR SHORTNESS OF AIR/WHEEZING 1 Dec 19, 2019 [id number] September 04, 2019 PAMELA RAMSEY CBGUILLERMO ALCOHOL PREP PAD Active USE 1 PAD ON SKIN BIW TO CLEAN AND DISINFECT THE SKIN 200 Sep 29, 2020 [id number] Sep 30, 2019 CHUCHOPAMELLA FAUSTINLloyd [facility] ALCOHOL PREP PAD Discontinued USE 1 PAD ON SKIN BI W TO CLEAN AND DISINFECT THE SKIN 200 Dec 19, 2019 [id number] Jun 06, 2019 PAMELA RAMSEY ALCOHOL PREP PAD Discontinued USE 1 PAD ON SKIN BI W TO CLEAN AND DISINFECT THE SKIN 200 Jul 25, 2019 [id number] Nov 12, 2018 PAMELA RAMSEY ASCORBIC ACID 250MG TAB Non-VA TAKE ONE TABLET BY MOUTH ONCE A DAY Non-VA Documented by: SHANIQUA SCHMIDT nted at: [facility] ASPIRIN 25MG/DIPYRIDAMOLE 200MG CAP,SA Active T CHAPIN 1 CAPSULE BY MOUTH TWO TIMES A DAY - SWALLOW WHOLE. DO NOT CRUSH OR CHEW. FOR RECURRENT TIA/STROKE 180 Dec 19, 2019 [id number] Dec 20, 2018 PAMELA RAMSEY ASPIRIN 25MG/DIPYRIDAMOLE 200MG CAP,SA Discontinued T CHAPIN 1 CAPSULE BY MOUTH TWO TIMES A DAY - SWALLOW WHOLE. DO NOT CRUSH OR CHEW. FOR RECURRENT TIA/STROKE 180 Feb 06, 2019 [id number] Sep 28, 2018 ZACHARY GRECO [facility] ASPIRIN 81MG TAB,EC Non- VA TAKE ONE TABLET BY MOUTH ONCE A DAY Non-VA Documented by: PADMA LONG nted at: [facility] ATORVASTATIN CA 80MG TAB Active TAKE ONE TABLET BY MOUTH AT BEDTIME FOR CHOLESTEROL - REPORT ANY UNEXPLAINED MUSCLE PAIN/WEAKNESS TO YOUR PROVIDER 90 Dec 19, 2019 [id number] September 04, 2019 PAMELA RAMSEY ATORVASTATIN CA 80MG TAB Discontinued TAKE ONE TABLET BY MOUTH AT BEDTIME FOR CHOLESTEROL - REPORT ANY UNEXPLAINED MUSCLE PAIN/WEAKNESS TO YOUR PROVIDER 90 Dec 20, 2018 [id number] Nov 12, 2018 PAMELA RAMSEY BUDESONIDE 160MCG/FORMOTEROL FUM 4.5MCG/SPRAY INHL,ORAL,10.2 GM Active INHALE 2 PUFFS BY MOUTH TWO TIMES A DAY FOR BREATHING. SHAKE WELL. RINSE MOUTH AND SPIT AFTER EACH USE. 3 Apr 24, 2020 [id number] August 22, 2019 LISSA OATES [facility] CALCIUM/VITAMIN D TAB No n-VA TAKE BY MOUTH ONCE A DAY Non-V A Documented by: PADMA LONG nted at: [facility] CARBOXYMETHYLCELLULOSE NA 0.5% SOLN,OPH Active INSTILL ONE DROP IN BOTH EYES FOUR TIMES A DAY FOR DRY EYES 15 Feb 01, 2020 [id number] September 03 0 NEDA SHAW [facility] DICLOFENAC NA 1% GEL,TOP Discontinued APPLY 2 GRAMS A FFECTED AREA TWO TIMES A DAY NEEDED FOR PAIN AND INFLAMMATION. DO NOT EXCEED 16GM DAILY TO ANY AFFECTED JOINT OF LOWER EXTREMITIES. DO NOT EXCEED 8GM DAILY TO ANY AFFECTED JOINT OF UPPER EXTREMITES. DO NOT EXCEED TOTAL DOSE OF 32GM DAILY FOR ALL JOINTS. 100 Oct 31, 2018 [id number] Oct 06, 2018 ANAYELI KIRKPATRICK [facility] [...] FOR ALL JOINTS. 100 Jan 17, 2019 [id number] Dec 20, 2018 PAMELA RAMSEY FLUTICASONE PROPIONATE 50MCG/SPRAY SOLN,NASAL,16GM Active INSTILL 1 SPRAY IN EACH NOSTRIL ONCE A DAY SHAKE GENTLY BEFORE USE! - MUST BE USED DIRECTED FOR 3 WEEKS TO PROVIDE BENEFIT. * NO EARLY REFILLS * 1UNIT = 30DAYS AT 4 PF/DAY OR 60DAYS AT 2PF/DAY 2 Dec 19, 2019 [id number] August 26, 2019 PAMELA RAMSEY KETOTIFEN 0.025% SOLN,OPH Active INSTILL 1 DROP IN BOTH EYES TWO TIMES A DAY FOR RELIEF OF ALLERGY SYMPTOMS IN EYE(S) Feb 01, 2020 [id number] September 04, 2019 NEDA SHAW [facility] LANCET,SOFTCLIX Active USE LANCET BIW FOR TESTING BL OOD GLUCOSE DIRECTED 100 Sep 29, 2020 [id number] Sep 30, 2019 [facility] LANCET,SOFTCLIX Discontinued USE LANCET BIW FO R TESTING BLOOD GLUCOSE DIRECTED 100 Dec 19, 2019 [id number] Jun 06, 2019 PAMELA RAMSEY LANCET,SOFTCLIX Discontinued USE LANCET BIW FO R TESTING BLOOD GLUCOSE DIRECTED Jul 25, 2019 [id number] Nov 12, 2018 PAMELA RAMSEY LISINOPRIL 40MG TAB Non- VA TAKE ONE-HALF TABLET BY MOUTH EVERY MORNING Non-VA Documented by: PAMELA RAMSEY nted at: [facility] LORATADINE/PSEUDOEPHEDRINE TAB,SA Non-VA TAKE BY MOUTH No n-VA Documented by: JUAN LANGume nted at: [facility] MAGNESIUM OXIDE 400MG TAB Non-VA TAKE [...] ACID (REPLACES ACIPHEX) 180 Dec 19, 2019 [id number] August 26, 2019 PAMELA RAMSEY POLYETHYLENE GLYCOL [...] Documented by: KATHERINE MATT Docume nted at: [facility] PREGABALIN 150MG CAP,ORAL Non-VA TAKE 1 CAPSULE BY MOUTH TWO TIMES A DAY Non-VA Docume nted by: PAMELA RAMSEY Docume nted at: [facility] SEMAGLUTIDE INJ,SOLN Non -VA INJECT SUBCUTANEOUSLY EVERY WEEK Non-VA Documented by: ANAYELI KIRKPATRICK Docume nted at: [facility] TERBINAFINE HCL 1% CREAM,TOP Active APPLY LIGHT LY TO AFFECTED AREA TWO TIMES A DAY FOR INFECTION 90 Sep 23, 2020 [id number] Sep 24, 2019 ADRIEL HERNANDEZ UREA 20% CREAM,TOP Active APPLY LIGHTLY (20%) TO AFFECTED AREA TWO TIMES A DAY NEEDED TO PROMOTE HEALING,RUB IN UNTIL COMPLETELY ABSORBED*FOR TOPICAL USE ONLY* APPLY TO BOTH FEET DIRECTED. 90 Sep 25, 2020 [id number] Sep 26, 2019 ADRIEL HERNANDEZ Problems (Conditions): [...] Alcohol intake above recommended sensible limits Active 434031351 PADMA LONG [facility] Allergic conjunctivitis Active 414367960 HOLLYFACUNDONEDA J [facility] Bilateral senile combined form cataracts of eyes Active [id number] 9108 COLINFACUNDONEDA J ARTUR [facility] Bilateral tinnitus Active [id number] CHASTITY JEAN [facility] Coronary arteriosclerosis Active 75998326 September 08, 2014 Entered By: PADMA LONG Comment: hx of ptca to RCA several yrs. agoSeptember 08, 2014 Entered By: PADMA LONG Comment: heart cath 09/01/14, neg. / previous stent to RCA,, via abida meneses ks HATCHER, JENNEY R [facility] Diabetes mellitus Active 92645875 APMELA RAMSEY [facility] Disorder of pancreas Active 6896834 September 08, 2014 Entered By: PADMA LONG Comment: 2.5cm low density lseion in bodyMay 2014 Entered By: PADMA LONG Comment: question of communication with pancreatic ductMay 2014 Entered By: PADMA LONG Comment: favored to be cystic pancreatic cancerMay 2014 Entered By: PADMA LONG Comment: per abdominal CT 09/01/14, via abida meneses,PADMA Pradhan [facility] Dry eyes Active 307690474 HOLLYNEDA Luda [facility] Gastro-esophageal reflux disease without esophagitis ( SNOMED CT 451079774) Active 460188847 ALF GUEVARA [facility] History of malignant neoplasm of lung Active 775090797 TANK BARRETO [facility] Hyperlipidemia (SNOMED CT 58284552) Active 65994371 PAMELA RAMSEY [facility] Lung mass Active 522117555 September 08, 2014 E ntered By: PADMA [...] uncertain behavior of skin of eyelid Active 67814943 KATHERINE MATT [facility] Obesity Active 836072762 [facility] Obstructive sleep apnea syndrome (SNOMED CT 24666915) Active 157214 015 [place] [facility] Pancreatic cyst Active 52169232 JAYLENE GUEVARA [facility] Papilloma of right eyelid Active [id number] NEDA SHAW [facility] Polyp of colon Active 06202410 Jan 23 16 Entered By: PADMA LONG Comment: c-scope 01/17/16, multiple benign colonic polypsJun 28, 2017 Entered By: PADMA LONG Comment: c-scope,06/25/17,[facility], three benign polyps- sigmoid colon, transverse colon,cecum. see path report cprs SHARRON TORRES [facility] Pulmonary emphysema Active 97135375 0 BRIANA GAVIN [facility] Sensorineural hearing loss, bilateral Active 147601007 CHASTITY JEAN [facility] Snoring Active 79387630 SONG BULLOCK [facility] Type 2 diabetes mellitus without complication Active 193008516 NEDA SHAW [facility] Environmental Allergies (ICD-9-CM 477.9) Inactive 477.9 Dec 18, 2017 PADMA LONG [facility] External hemorrhoids without mention of complication (ICD-9- CM 455.3) Inactive 455.3 Dec 18, 2017 PADMA LONG [facility] Impotence of organic origin (ICD-9-CM 607.84) Inactive 607.84 Dec 18, 2017 PADMA LONG [facility] Screening for Lipoid disorders (ICD-9-CM [...] of the Encounter. The data comes from [facility] treatment facilities. Date/Time Radiology Report Provider Source Jun 25, 2019 10:[address] CHEST/THORAX W/CONT: [facility] BOB [id number] -[id number] M Exm Date: JUN 25, 2019@10:47 Req Phys: [facility]RE[facility] Pat Loc: [place]-ONCOLOGY 3 (Req'g Loc) Img Loc: [place] (RAD) Service: Unknown (Case [id number] COMPLETE) CT CHEST/THORAX W/C ONT (CT Detailed) CPT:46121 Contrast Media : Non-ionic Iodinated Reason for Study: annual survellance Clinical History: NSCLCA hx Report Status: Verified Date Reported: JUN 25, 2019 Date Verified: JUN 25, 2019 Chronometer Tester E-Sig: Report: INDICATION: annual survellance non-small cell [...] NEEDED Primary Interpreting Staff: RALPH GUZMAN, Radiologist (Chronometer Tester, no e-sig) /RALPH [facility] BRYAN 15 Jun 25, 2019 10:[address] ABD & PELV W/CONTRAST: HER[facility]TH BOB [id number] -[id number] M Ex Date: JUN 25, 2019@10:47 Req Phys: TANK BARRETO Loc: [place]-ONCOLOGY 3 (Req'g Loc) Img Loc: [place] (RAD) Service: Unknown (Case [id number] COMPLETE) CT ABD & PELV W/CON TRAST (CT Detailed) CPT:87859 Contrast Media : Non-ionic Iodinated Reason for Study: surveillance Clinical History: NSCLCA hx Report Status: Verified Date Reported: JUN 25, 2019 Date Verified: JUN 25, 2019 Chronometer Tester E-Sig: Report: INDICATION: surveillance non-small cell lung [...] REQUIRED Primary Interpreting Staff: RALPH GUZMAN, Radiologist (Chronometer Tester, no e-sig) /RALPH [facility] - [...] Staff Oncologist Signed: 06/25/2019 15:29 [facility] Jun 25, 2019 02:15 PM NURSING OUTPATIENT [...] BHAT LPN Signed: 06/25/2019 14:17 MORRIS BHAT [facility]
--- OUTSIDE RECORDS SUMMARY | 2019-12-02 13:47 | XMS REPORT | Encounter Summary ---
Author Author [facility] Organization Department of [facility] Affai Address [address] [place] [address] Phone Unavailable Care Team Providers Care Chairman Of The Board Name Role Phone ARDIEL HERNANDEZ PCP Unavailable Insurance Providers: All historical and current No Data Provided for This Section Selected Encounter This section includes the information on record at [place] for the Encounter. Date/Time Encounter Type Encounter Description Reason Provider Source Nov 13, 2019 10:47 AM Outpatient Encounter TELEPHONE/MEDICINE IC [id number] Hypoxemia with Provider Comments: Hypoxemia SALOMON ESTEVEZ [facility] IHE Encounter Template Text not used by [place] Assessments - Encounter Diagnoses This section includes the primary and secondary diag noses documented for the Encounter. Date/Time Primary/Secondary Diagnosis Diagnosis Name Provider Source Nov 13, 2019 10:47 AM PRIMARY Hypoxemia SALOMON ESTEVEZ [facility] Plan of Treatment: Future Appointments [...] 11:00 AM AMBULATORY - NONE ARTUR BLAS [facility] Dec 31, 2019 01:15 PM AMBULATORY - MEDICINE ARTUR BLAS [facility] Dec 31, 2019 01:16 PM AMBULATORY - MEDICINE ARTUR BLAS [facility] Jan 01, 2020 09:00 AM AMBULATORY - MEDICINE ARTUR BLAS [facility] Jan 07, 2020 12:00 PM AMBULATORY - MEDICINE [facility] Jan 27[facility] 2020 01:00 PM [facility] Mar 31, 2020 09:30 AM AMBULATORY - MEDICINE [facility] Mar 31, 2020 09:31 AM AMBULATORY - MEDICINE ARTUR BLAS [facility] Mar 31, 2020 10:00 AM AMBULATORY - MEDICINE [facility] Mar 31, 2020 10:01 AM AMBULATORY - MEDICINE ARTUR BLAS [facility] Apr 07, 2020 08:00 AM AMBULATORY - NONE [facility] Active, Pending, and Scheduled [...] the Encounter. The data comes from all [facility] facilities. Test Date/Time Test Type Test Details Facility Name Nov 17, 2019 07:23 AM Consult Order [id number] Cons Ruffling Machine Operator's Choice ARTUR BLAS [facility] Dec 15, 2019 12:00 AM Laboratory - Chemistry Order CREATININ E (INCLUDES EGFR) GREEN TOP TUBE PLASMA SP [facility] Surgical Procedures: All associated [...] OR MORE PORSHA BLAS [facility] Tobacco Use History This section includes a history of the smoking, or tobacco -related health factors, that were collected on or before the date of the Encoun ter. The data comes from the [place] facility where the Encounter took place. Date/Time Smoking Status/Tobacco Use Comment [facility] Jun 26, 2018 02:13 PM VA-TOBACCO QUIT 15 YRS OR MORE PORSHA BLAS [facility] Jun 27, 2017 01:39 PM [...] to adverse reactions to drug (diso rder) [facility] 15 PLAVIX September 08, 2014 Propensity to adverse reactions to drug (diso rder) [facility] 15 Medications: VA dispensed (-15 months) and Non-VA Documented (Obtained Outside V A) Section Date Range: 1) prescriptions processed by a VA pharmacy in the last [address] [facility], and 2) all medications recorded in the VA medical record as "non-VA medic ations". Pharmacy terms refer to [place] pharmacy's work on prescriptions. VA patient s [...] may be a prescription from either the [place] or other providers that was filled outside [...] TEST BLOOD GLUCOSE 50 Dec 19, 2019 [id number] September 04, 2019 PAMELA RAMSEY ACCU-CHEK CHARLES PLUS (GLUCOSE) TEST STRIP Discontinued USE 1 STRIP FOR TESTING TWO TIMES PER WEEK - DIRECTED TO TEST BLOOD GLUCOSE 50 Jul 25, 2019 [id number] Nov 12, 2018 PAMELA RAMSEY CB ALBUTEROL SO4 90MCG/ACTUAT (CFC-F) INHL,ORAL,6.7GM Active INHALE 2 PUFFS BY ORAL INHALATION EVERY 4 HOURS NEEDED FOR BREATHING. SHAKE WELL. RINSE MOUTHPIECE FREQUENTLY TO PREVENT CLOGGING. USE NEEDED FOR SHORTNESS OF AIR/WHEEZING FOR BREATHING. SHAKE WELL. RINSE MOUTHPIECE FREQUENTLY TO PREVENT CLOGGING. USE NEEDED FOR SHORTNESS OF AIR/WHEEZING 1 Dec 19, 2019 [id number] September 04, 2019 PAMELA RAMSEY ALCOHOL PREP PAD Active USE 1 PAD ON SKIN BIW TO CLEAN AND DISINFECT THE SKIN 200 Sep 29, 2020 [id number] Sep 30, 2019 MAURICIO RANKIN [facility] ALCOHOL PREP PAD Discontinued USE 1 PAD ON SKIN BI W TO CLEAN AND DISINFECT THE SKIN 200 Dec 19, 2019 [id number] Jun 06, 2019 PAMELA RAMSEY ALCOHOL PREP PAD Discontinued USE 1 PAD ON SKIN BI W TO CLEAN AND DISINFECT THE SKIN 200 Jul 25, 2019 [id number] Nov 12, 2018 PAMELA RAMSEY ASCORBIC ACID 250MG TAB Non-VA TAKE ONE TABLET BY MOUTH ONCE A DAY Non-VA Documented by: SHANIQUA SCHMIDT nted at: [facility] ASPIRIN 25MG/DIPYRIDAMOLE 200MG CAP,SA Active T CHAPIN 1 CAPSULE BY MOUTH TWO TIMES A DAY - SWALLOW WHOLE. DO NOT CRUSH OR CHEW. FOR RECURRENT TIA/STROKE 180 Dec 19, 2019 [id number] Dec 20, 2018 PAMELA RAMSEY [facility] ASPIRIN 25MG/DIPYRIDAMOLE 200MG CAP,SA Discontinued T CHAPIN 1 CAPSULE BY MOUTH TWO TIMES A DAY - SWALLOW WHOLE. DO NOT CRUSH OR CHEW. FOR RECURRENT TIA/STROKE 180 Feb 06, 2019 [id number] Sep 28, 2018 ZACHARY GRECO [facility] ASPIRIN 81MG TAB,EC Non- VA TAKE ONE TABLET BY MOUTH ONCE A DAY Non-VA Documented by: PADMA LONG nted at: [facility] ATORVASTATIN CA 80MG TAB Active TAKE ONE TABLET BY MOUTH AT BEDTIME FOR CHOLESTEROL - REPORT ANY UNEXPLAINED MUSCLE PAIN/WEAKNESS TO YOUR PROVIDER 90 Dec 19, 2019 [id number] September 04, 2019 PAMELA RAMSEY GUILLERMO ATORVASTATIN CA 80MG TAB Discontinued TAKE ONE TABLET BY MOUTH AT BEDTIME FOR CHOLESTEROL - REPORT ANY UNEXPLAINED MUSCLE PAIN/WEAKNESS TO YOUR PROVIDER 90 Dec 20, 2018 [id number] Nov 12, 2018 PAMELA RAMSEY CB BUDESONIDE 160MCG/FORMOTEROL FUM 4.5MCG/SPRAY INHL,ORAL,10.2 GM Active INHALE 2 PUFFS BY MOUTH TWO TIMES A DAY FOR BREATHING. SHAKE WELL. RINSE MOUTH AND SPIT AFTER EACH USE. 3 Apr 24, 2020 [id number] August 22, 2019 LISSA OATES [facility] CALCIUM/VITAMIN D TAB No n-VA TAKE BY MOUTH ONCE A DAY Non-V A Documented by: PADMA LONG nted at: [facility] CARBOXYMETHYLCELLULOSE NA 0.5% SOLN,OPH Active INSTILL ONE DROP IN BOTH EYES FOUR TIMES A DAY FOR DRY EYES 15 Feb 01, 2020 [id number] September 03 0 [facility] DICLOFENAC NA 1% GEL,TOP Discontinued APPLY 2 GRAMS A FFECTED AREA TWO TIMES A DAY NEEDED FOR PAIN AND INFLAMMATION. DO NOT EXCEED 16GM DAILY TO ANY AFFECTED JOINT OF LOWER EXTREMITIES. DO NOT EXCEED 8GM DAILY TO ANY AFFECTED JOINT OF UPPER EXTREMITES. DO NOT EXCEED TOTAL DOSE OF 32GM DAILY FOR ALL JOINTS. 100 Oct 31, 2018 [id number] Oct 06, 2018 ANAYELI KIRKPATRICK [facility] DICLOFENAC NA 1% GEL,TOP APPLY 2 GRAMS A FFECTED AREA TWO TIMES A DAY NEEDED FOR PAIN AND INFLAMMATION. DO NOT EXCEED 16GM DAILY TO ANY AFFECTED JOINT OF LOWER EXTREMITIES. DO NOT EXCEED 8GM DAILY TO ANY AFFECTED JOINT OF UPPER EXTREMITES. DO NOT EXCEED TOTAL DOSE OF 32GM DAILY FOR ALL JOINTS. 100 Jan 17, 2019 [id number] Dec 20, 2018 PAMELA RAMSEY FLUTICASONE PROPIONATE 50MCG/SPRAY SOLN,NASAL,16GM Active INSTILL 1 SPRAY IN EACH NOSTRIL ONCE A DAY SHAKE GENTLY BEFORE USE! - MUST BE USED DIRECTED FOR 3 WEEKS TO PROVIDE BENEFIT. * NO EARLY REFILLS * 1UNIT = 30DAYS AT 4 PF/DAY OR 60DAYS AT 2PF/DAY 2 Dec 19, 2019 [id number] August 26, 2019 PAMELA RAMSEY KETOTIFEN 0.025% SOLN,OPH Active INSTILL 1 DROP IN BOTH EYES TWO TIMES A DAY FOR RELIEF OF ALLERGY SYMPTOMS IN EYE(S) 10 Feb 01, 2020 [id number] September 04, 2019 [facility] LANCET,SOFTCLIX Active USE LANCET BIW FOR TESTING BL OOD GLUCOSE DIRECTED Sep 29, 2020 [id number] Sep 30, 2019 MAURICIO RANKIN LANCET,SOFTCLIX Discontinued USE LANCET BIW FO R TESTING BLOOD GLUCOSE DIRECTED Dec 19, 2019 [id number] Jun 06, 2019 PAMELA RAMSEY LANCET,SOFTCLIX Discontinued USE LANCET BIW FO R TESTING BLOOD GLUCOSE DIRECTED 100 Jul 25, 2019 [id number] Nov 12, 2018 PAMELA RAMSEY LISINOPRIL 40MG TAB Non- VA TAKE ONE-HALF TABLET BY MOUTH EVERY MORNING Non-VA Documented by: PAMELA RAMSEY nted at: [facility] LORATADINE/PSEUDOEPHEDRINE TAB,SA Non-VA TAKE BY MOUTH No n-VA Documented by: JUAN LNAG Docume nted at: ARTUR BLAS [facility] MAGNESIUM OXIDE 400MG TAB Non-VA [...] ACID (REPLACES ACIPHEX) 180 Dec 19, 2019 [id number] August 26, 2019 PAMELA RAMSEY POLYETHYLENE GLYCOL [...] Non-VA Documented by: KATHERINE MATT nted at: [facility] PREGABALIN 150MG CAP,ORAL Non-VA TAKE 1 CAPSULE BY MOUTH TWO TIMES A DAY Non-VA Docume nted by: PAMELA RAMSEY nted at: [facility] SEMAGLUTIDE INJ,SOLN Non -VA INJECT SUBCUTANEOUSLY EVERY WEEK Non-VA Documented by: ANAYELI KIRKPATRICKume nted at: [facility] TERBINAFINE HCL 1% CREAM,TOP Active APPLY LIGHT LY TO AFFECTED AREA TWO TIMES A DAY FOR INFECTION 90 Sep 23, 2020 [id number] Sep 24, 2019 ADRIEL HERNANDEZ CB UREA 20% CREAM,TOP Active APPLY LIGHTLY (20%) TO AFFECTED AREA TWO TIMES A DAY NEEDED TO PROMOTE HEALING,RUB IN UNTIL COMPLETELY ABSORBED*FOR TOPICAL USE ONLY* APPLY TO BOTH FEET DIRECTED. 90 Sep 25, 2020 [id number] Sep 26, 2019 ADRIEL HERNANDEZ [facility] Problems (Conditions): All historical and current Section Date Range: From patient's date of to the date document was create d. This section includes a list of Problems (Conditions) know n to [place] for the patient. It includes both active and inacti ve problems (conditions). The data comes from all [place] treatment facilities. Problem Status Problem Code Date of Onset Date of Resolution Comm ent(s) Provider Source Alcohol intake above recommended sensible limits Active 891841925 PADMA LONG [facility] Allergic conjunctivitis Active 046966398 [facility] Bilateral senile combined form cataracts of eyes Active [id number] 9[facility] Bilateral tinnitus Active 1645088346651 CHASTITY JEAN [facility] Coronary arteriosclerosis Active 08535517 September 08, 2014 Entered By: PADMA LONG Comment: hx of ptca to RCA several yrs. agoSeptember 08, 2014 Entered By: PADMA LONG Comment: heart cath 09/01/14, neg. / previous stent to RCA,, [place] HATCHER, JENNEY R [facility] Diabetes mellitus Active 08413587 PAMELA RAMSEY [facility] Disorder of pancreas Active 9313960 September 08, 2014 Entered By: PADMA LONG Comment: 2.5cm low density lseion in bodyMay 2014 Entered By: PADMA LONG Comment: question of communication with pancreatic ductMa2014 Entered By: PADMA LONG Comment: favored to be cystic pancreatic cancerSeptember 08, 2014 Entered By: PADMA LONG Comment: per abdominal CT 09/01/14, [place] PADMA LONG [facility] Dry eyes Active 267100236 [facility] Gastro-esophageal reflux disease without esophagitis ( SNOMED CT 800677018) Active 968336568 ALF GUEVARA [facility] History of malignant neoplasm of lung Active 802847761 CHAPO BARRETO [facility] Hyperlipidemia (SNOMED CT 24092869) Active 04514064 PAMELA RAMSEY [facility] Lung mass Active 238164108 September 08, 2014 E ntered By: PADMA LONG Comment: 4.5 cm mass, post. segment right upper lobe.September 08, 2014 Entered By: PADMA LONG Comment: mild adenopathy in mediastinum and bilat. hilaMay 2014 Entered By: PADMA LONG Comment: most likely related to lung cancerMay 2014 Entered By: PADMA LONG Comment: per ct angio of chest with contrast 09/01/14,[place] 2014 Entered By: PADMA LONG Comment: per path report- mod. differentiated bronchogenic adenoca. 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 Obstructive sleep apnea syndrome (SNOMED CT 66930854) Active 138884 015 [facility] Pancreatic cyst Active 46123691 JAYLENE GUEVARA [facility] Papilloma of right eyelid Active [id number] [facility] Polyp of colon Active 16730641 Jan 23 16 Entered By: PADMA LONG Comment: c-scope 01/17/16, multiple benign colonic polypsJun 28, 2017 Entered By: PADMA LONG Comment: c-scope,06/25/17,[facility], three benign polyps- sigmoid colon, transverse colon,cecum. see path report cprs SHARRON TORRES [facility] Pulmonary emphysema Active 68371895 0 BRIANA LESLYE [place] [facility] Sensorineural hearing loss, bilateral Active 590537763 CHASTITY JEAN ARTUR [facility] Snoring Active 97003194 [facility] B[place]OCK [facility] Type 2 diabetes mellitus without complication Active 417674265 [facility] Environmental Allergies (ICD-9-CM 477.9) Inactive 477.9 Dec 18, 2017 [facility] External hemorrhoids without mention of complication (ICD-9- CM 455.3) Inactive 455.3 Dec 18, 2017 [facility] Impotence of organic origin (ICD-9-CM 607.84) Inactive 607.84 Dec 18, 2017 [facility] Screening for Lipoid disorders (ICD-9-CM V77.91) Inactive V77.91 Jan 18, 2007 [facility]AD[facility] Stye * (ICD-9-CM 373.11) Inactive 373.11 Dec 18, 201 8 Jan 18, 2007 Entered By: PADMA LONG Comment: bilat lower lids, chronic/recurrent PADMA LONG [facility] Tobacco Use Disorder, Continuous Inactive 305.1 Dec 18, 2017 Jan 18, 2007 Entered By: PADMA LONG Comment: one ppd PADMA LONG [facility] Radiology Reports: +/- 30 days [...] according to the records I received from [facility] he did not require oxygen at noc inline with his Cpap. [place] also requesting a humidifier bottle for his oxygen concentrator. Let him know I will contact the oxygen vendor to get one out to him today. [place] appreciative of my call and confirmed he will see me for his appt at the [facility] Jan 07, 2020. 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
--- OUTSIDE RECORDS SUMMARY | 2019-12-02 13:47 | XMS REPORT | Encounter Summary ---
Author Author Department of [facility] Aff rsHERBERTH Organization [facility] Address [address] [place] [address] Phone Unavailable Care Team Providers Care Banking Analyst Name Role Phone ADRIEL HERNANDEZ PCP Unavailable Insurance Providers: All historical and current No Data Provided for This Section Selected Encounter This section includes the information on record at [place] for the Encounter. Date/Time Encounter Type Encounter Description Reason Provider Source Nov 12, 2019 10:13 AM Outpatient Encounter ADMIN PAT ACTIVTIES ([place] NCT) [facility] IHE Encounter [...] 11:00 AM AMBULATORY - NONE ARTUR BLAS [facility] Dec 31, 2019 01:15 PM AMBULATORY - MEDICINE [facility] Dec 31, 2019 01:16 PM AMBULATORY - MEDICINE [facility] Jan 01, 2020 09:00 AM AMBULATORY - MEDICINE [facility] Jan 07, 2020 12:00 PM AMBULATORY - MEDICINE [facility] Jan 27, 2020 01:00 PM [facility] Mar 31, 2020 09:30 AM AMBULATORY - MEDICINE [facility] Mar 31, 2020 09:31 AM AMBULATORY - MEDICINE [facility] Mar 31, 2020 10:00 AM AMBULATORY - MEDICINE [facility] Mar 31, 2020 10:01 AM AMBULATORY - MEDICINE [facility]UR [facility] Apr 07, 2020 08:00 AM AMBULATORY - [...] the Encounter. The data comes from all [place] treatment facilities. Test Date/Time Test Type Test Details Facility Name Nov 17, 2019 07:23 AM Consult Order [facility] [id number] Cons Meat Team Member's Choice [facility] Dec 15, 2019 12:00 AM Laboratory - Chemistry Order CREATININ E (INCLUDES EGFR) GREEN TOP TUBE PLASMA SP [facility] Surgical Procedures: All associated to [...] Encounter took place. Date/Time Current Smoking Status [facility] Nov 23, 2017 09:51 AM TOBACCO [...] CURRENT TOBACCO USER (READY TO QUIT) [facility] Nov 23, 2017 09:51 AM TOBACCO CESSATION REFERRAL DECLINED [facility] Nov 23, 2017 09:51 AM TOBACCO USER OFFERED MEDS [place] [facility] Dec 18, 2016 08:55 AM NON-TOBACCO USER [facility] Dec 01, 2005 08:32 AM CURRENT NON-SMOKER [facility] Dec 01, 2005 08:32 AM LIFETIME NON-SMOKER [facility] Dec 01, 2005 08:32 AM LIFETIME NON-TOBACCO USER [facility] Dec 01, 2005 08:32 AM NON-SMOKER [facility] Dec 01, 2005 08:32 AM NON-TOBACCO USER [facility] Advance Directives: All historical and [...] reactions to drug (diso rder) [facility] 15 PLAVIX September 08, 2014 Propensity to adverse reactions to drug (diso rder) [facility] 15 Medications: VA dispensed (-15 months) and Non-VA Documented (Obtained Outside V A) Section Date Range: 1) [facility] a [facility] and 2) all medications recorded in [...] TEST BLOOD GLUCOSE 50 Dec 19, 2019 [id number] September 04, 2019 PAMELA RAMSEY ACCU-CHEK CHARLES PLUS (GLUCOSE) TEST STRIP Discontinued USE 1 STRIP FOR TESTING TWO TIMES PER WEEK - DIRECTED TO TEST BLOOD GLUCOSE 50 Jul 25, 2019 [id number] Nov 12, 2018 PAMELA RAMSEY ALBUTEROL SO4 90MCG/ACTUAT (CFC-F) INHL,ORAL,6.7GM Active INHALE 2 PUFFS BY ORAL INHALATION EVERY 4 HOURS NEEDED FOR BREATHING. SHAKE WELL. RINSE MOUTHPIECE FREQUENTLY TO PREVENT CLOGGING. USE NEEDED FOR SHORTNESS OF AIR/WHEEZING FOR BREATHING. SHAKE WELL. RINSE MOUTHPIECE FREQUENTLY TO PREVENT CLOGGING. USE NEEDED FOR SHORTNESS OF AIR/WHEEZING Dec 19, 2019 [id number] September 04, 2019 [facility] ALCOHOL PREP PAD Active USE 1 PAD ON SKIN BIW TO CLEAN AND DISINFECT THE SKIN Sep 29, 2020 [id number] Sep 30, 2019 [facility] ALCOHOL PREP PAD Discontinued USE 1 PAD ON SKIN BI W TO CLEAN AND DISINFECT THE SKIN 200 Dec 19, 2019 [id number] Jun 06, 2019 [facility] ALCOHOL PREP PAD Discontinued USE 1 PAD ON SKIN BI W TO CLEAN AND DISINFECT THE SKIN 200 Jul 25, 2019 [id number] Nov 12, 2018 PAMELA RAMSEY ASCORBIC ACID 250MG TAB Non-VA TAKE ONE TABLET BY MOUTH ONCE A DAY Non-VA Documented by: SHANIQUA SCHMIDT nted at: [facility] ASPIRIN 25MG/DIPYRIDAMOLE 200MG CAP,SA Active T CHAPIN 1 CAPSULE BY MOUTH TWO TIMES A DAY - SWALLOW WHOLE. DO NOT CRUSH OR CHEW. FOR RECURRENT TIA/STROKE 180 Dec 19, 2019 [id number] Dec 20, 2018 [facility] ASPIRIN 25MG/DIPYRIDAMOLE 200MG CAP,SA Discontinued T CHAPIN 1 CAPSULE BY MOUTH TWO TIMES A DAY - SWALLOW WHOLE. DO NOT CRUSH OR CHEW. FOR RECURRENT TIA/STROKE 180 Feb 06, 2019 [id number] Sep 28, 2018 [facility] ASPIRIN 81MG TAB,EC Non- VA TAKE ONE TABLET BY MOUTH ONCE A DAY Non-VA Documented by: PADMA LONG nted at: [facility] ATORVASTATIN CA 80MG TAB Active TAKE ONE TABLET BY MOUTH AT BEDTIME FOR CHOLESTEROL - REPORT ANY UNEXPLAINED MUSCLE PAIN/WEAKNESS TO YOUR PROVIDER 90 Dec 19, 2019 [id number] September 04, 2019 PAMELA RAMSEY ATORVASTATIN CA 80MG TAB Discontinued TAKE ONE TABLET BY MOUTH AT BEDTIME FOR CHOLESTEROL - REPORT ANY UNEXPLAINED MUSCLE PAIN/WEAKNESS TO YOUR PROVIDER 90 Dec 20, 2018 [id number] Nov 12, 2018 PAMELA RAMSEY BUDESONIDE 160MCG/FORMOTEROL FUM 4.5MCG/SPRAY INHL,ORAL,10.2 GM Active INHALE 2 PUFFS BY MOUTH TWO TIMES A DAY FOR BREATHING. SHAKE WELL. RINSE MOUTH AND SPIT AFTER EACH USE. 3 Apr 24, 2020 [id number] August 22, 2019 LISSA OATES [facility] CALCIUM/VITAMIN D TAB No n-VA TAKE BY MOUTH ONCE A DAY Non-V A Documented by: PADMA LONG nted at: [facility] CARBOXYMETHYLCELLULOSE NA 0.5% SOLN,OPH Active INSTILL ONE DROP IN BOTH EYES FOUR TIMES A DAY FOR DRY EYES 15 Feb 01, 2020 [id number] September 03 0 [facility] DICLOFENAC NA 1% GEL,TOP Discontinued APPLY 2 GRAMS A FFECTED AREA TWO TIMES A DAY NEEDED FOR PAIN AND INFLAMMATION. DO NOT EXCEED 16GM DAILY TO ANY AFFECTED JOINT OF LOWER EXTREMITIES. DO NOT EXCEED 8GM DAILY TO ANY AFFECTED JOINT OF UPPER EXTREMITES. DO NOT EXCEED TOTAL DOSE OF 32GM DAILY FOR ALL JOINTS. 100 Oct 31, 2018 [id number] Oct 06, 2018 ANAYELI KIRKPATRICK Luda Juan M BLAS [facility] DICLOFENAC NA 1% GEL,TOP APPLY 2 GRAMS A FFECTED AREA TWO TIMES A DAY NEEDED FOR PAIN AND INFLAMMATION. DO NOT EXCEED 16GM DAILY TO ANY AFFECTED JOINT OF LOWER EXTREMITIES. DO NOT EXCEED 8GM DAILY TO ANY AFFECTED JOINT OF UPPER EXTREMITES. DO NOT EXCEED TOTAL DOSE OF 32GM DAILY FOR ALL JOINTS. 100 Jan 17, 2019 [id number] Dec 20, 2018 PAMELA RAMSEY FLUTICASONE PROPIONATE 50MCG/SPRAY SOLN,NASAL,16GM Active INSTILL 1 SPRAY IN EACH NOSTRIL ONCE A DAY SHAKE GENTLY BEFORE USE! - MUST BE USED DIRECTED FOR 3 WEEKS TO PROVIDE BENEFIT. * NO EARLY REFILLS * 1UNIT = 30DAYS AT 4 PF/DAY OR 60DAYS AT 2PF/DAY 2 Dec 19, 2019 [id number] August 26, 2019 PAMELA RAMSEY KETOTIFEN 0.025% SOLN,OPH Active INSTILL 1 DROP IN BOTH EYES TWO TIMES A DAY FOR RELIEF OF ALLERGY SYMPTOMS IN EYE(S) Feb 01, 2020 [id number] September 04, 2019 [facility] LANCET,SOFTCLIX Active USE LANCET BIW FOR TESTING BL OOD GLUCOSE DIRECTED 100 Sep 29, 2020 [id number] Sep 30, 2019 MAURICIO RANKIN LANCET,SOFTCLIX Discontinued USE LANCET BIW FO R TESTING BLOOD GLUCOSE DIRECTED Dec 19, 2019 [id number] Jun 06, 2019 PAMELA RAMSEY LANCET,SOFTCLIX Discontinued USE LANCET BIW FO R TESTING BLOOD GLUCOSE DIRECTED Jul 25, 2019 [id number] Nov 12, 2018 PAMELA RAMSEY LISINOPRIL 40MG TAB Non- VA TAKE ONE-HALF TABLET BY MOUTH EVERY MORNING Non-VA Documented by: PAMELA RAMSEY nted at: [facility] LORATADINE/PSEUDOEPHEDRINE TAB,SA Non-VA TAKE BY MOUTH No n-VA Documented by: JUAN LANG nted at: [facility] MAGNESIUM OXIDE 400MG TAB Non-VA [...] ACID (REPLACES ACIPHEX) 180 Dec 19, 2019 [id number] August 26, 2019 PAMELA RAMSEY POLYETHYLENE GLYCOL [...] Non-VA Documented by: KATHERINE MATT nted at: [facility] PREGABALIN 150MG CAP,ORAL Non-VA TAKE 1 CAPSULE BY MOUTH TWO TIMES A DAY Non-VA Docume nted by: PAMELA RAMSEY nted at: [facility] SEMAGLUTIDE INJ,SOLN Non -VA INJECT SUBCUTANEOUSLY EVERY WEEK Non-VA Documented by: ANAYELI KIRKPATRICK nted at: [facility] TERBINAFINE HCL 1% CREAM,TOP Active APPLY LIGHT LY TO AFFECTED AREA TWO TIMES A DAY FOR INFECTION 90 Sep 23, 2020 [id number] Sep 24, 2019 MARY,ADRIEL B [facility] UREA 20% CREAM,TOP Active APPLY LIGHTLY (20%) TO AFFECTED AREA TWO TIMES A DAY NEEDED TO PROMOTE HEALING,RUB IN UNTIL COMPLETELY ABSORBED*FOR TOPICAL USE ONLY* APPLY TO BOTH FEET DIRECTED. 90 Sep 25, 2020 [id number] Sep 26, 2019 [facility] Problems [...] Alcohol intake above recommended sensible limits Active [id number] [facility] Allergic conjunctivitis Active 401492466 [facility] Bilateral senile combined form cataracts of eyes Active [id number] [facility] Bilateral tinnitus Active [id number] CHASTITY JEAN [facility] Coronary arteriosclerosis Active 83371842 September 08, 2014 Entered By: PADMA LONG Comment: hx of ptca to RCA several yrs. agoSeptember 08, 2014 Entered By: PADMA LONG Comment: heart cath 09/01/14, neg. / previous stent to RCA,, [facility] KALA JONES [facility] Diabetes mellitus Active 69944838 PAMELA RAMSEY [facility] Disorder of pancreas Active 9981025 September 08, 2014 Entered By: PADMA LONG Comment: 2.5cm low density lseion in bodyMay 2014 Entered By: PADMA LONG Comment: question of communication with pancreatic ductMay 2014 Entered By: PADMA LONG Comment: favored to be cystic pancreatic cancerSeptember 08, 2014 Entered By: PADMA LONG Comment: per abdominal CT 09/01/14, via [facility] PADMA LONG [facility] Dry eyes Active 979570373 [facility] Gastro-esophageal reflux disease without esophagitis ( SNOMED CT 476000351) Active 963397562 ALF GUEVARA [facility] History of malignant neoplasm of lung Active 254073708 CHAPO BARRETO [facility] Hyperlipidemia (SNOMED CT 56801350) Active 00066664 PAMELA RAMSEY [facility] Lung mass Active 224221911 September 08, 2014 E ntered By: PADMA LONG Comment: 4.5 cm mass, post. segment right upper lobe.September 08, 2014 Entered By: PADMA LONG Comment: mild adenopathy in mediastinum and bilat. [email or web address] Entered By: PADMA LONG Comment: most likely related to lung cancerMa2014 Entered By: PADMA LONG Comment: per ct angio of chest with contrast 09/01/14,[facility] Entered By: PADMA LONG Comment: per path report- mod. differentiated bronchogenic adenoca. 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 Active 70331796 KATHERINE MATT [facility] Obesity Active 706790703 [place] [facility] Obstructive sleep apnea syndrome (SNOMED CT 42161521) Active 790231 015 [place] [facility] Pancreatic cyst Active 86117802 JAYLENE GUEVARA [facility] Papilloma of right eyelid Active [id number] [facility] Polyp of colon Active 48404589 Jan 23 16 Entered By: PADMA LONG Comment: c-scope 01/17/16, multiple benign colonic polypsJun 28, 2017 Entered By: PADMA LONG Comment: c-scope,06/25/17,[facility], three benign polyps- sigmoid colon, transverse colon,cecum. see path report [facility] Pulmonary emphysema Active 66844700 0 BRIANA GAVIN [facility] Sensorineural hearing loss, bilateral Active 768608772 CHASTITY JEAN [facility] [place] [facility] Snoring Active 02721712 [place] [facility] Type 2 diabetes mellitus without complication Active 361424683 [facility] Environmental Allergies (ICD-9-CM 477.9) Inactive 477.9 Dec 18, 2017 [facility] External hemorrhoids without mention of complication (ICD-9- CM 455.3) Inactive 455.3 Dec 18, 2017 [facility] Impotence of organic origin (ICD-9-CM 607.84) Inactive 607.84 Dec 18, 2017 [facility] Screening for Lipoid disorders (ICD-9-CM V77.91) Inactive V77.91 Jan 18, 2007 [facility] Stye * (ICD-9-CM 373.11) Inactive 373.11 Dec 18, 201 8 Jan 18, 2007 Entered By: PADMA LONG Comment: bilat lower lids, chronic/recurrent PADMA LONG Juan M [facility] Tobacco Use Disorder, [...] of report:Discharge summary Date(s) of record(s):11/11/2019 Sending constitution party:[place] [facility] /gisell/ BESSIE [place] Signed: 11/12/2019 10:14 [facility]
--- OUTSIDE RECORDS SUMMARY | 2019-12-02 13:48 | XMS REPORT | Encounter Summary ---
Author Author [facility] Organization [facility] Address [address] [place] [address] Phone Unavailable Care Team Providers Care Vice President Planning Name Role Phone ADRIEL HERNANDEZ PCP Unavailable [...] Provider Comments: Other specified counseling SHANIQUA SCHMIDT [facility] IHE Encounter Template Text not used by [place] Assessments - Encounter Diagnoses This section includes the primary and secondary diag noses documented for the Encounter. Date/Time Primary/Secondary Diagnosis Diagnosis Name Provider Source Nov 12, 2019 10:49 AM PRIMARY Other specified counseling SHANIQUA SCHMIDT [facility] Plan of Treatment: Future Appointments (+ [...] appointme nts. The data comes from all [facility]. Appointment Date/Time Appointment Type Appointment Facili ty Name Dec 31, 2019 11:00 AM AMBULATORY - NONE [facility]UR BLAS [facility] Dec 31, 2019 01:15 PM AMBULATORY - MEDICINE ARTUR BLAS [facility] Dec 31, 2019 01:16 PM AMBULATORY - MEDICINE ARTUR BLAS [facility] Jan 01, 2020 09:00 AM AMBULATORY - MEDICINE ARTUR BLAS [facility] Jan 07, 2020 12:00 PM AMBULATORY - MEDICINE [facility] Jan 27, 2020 01:00 PM AMBULATORY - MEDICINE [facility] Mar 31, 2020 09:30 AM AMBULATORY - MEDICINE [facility] Mar 31, 2020 09:31 AM AMBULATORY - MEDICINE ARTUR BLAS [facility] Mar 31, 2020 10:00 AM AMBULATORY - MEDICINE [facility] Mar 31, 2020 10:01 AM AMBULATORY - MEDICINE ARTUR BLAS [facility] Apr 07, 2020 08:00 AM AMBULATORY - NONE [facility] Active, Pending, and Scheduled Orders [...] the Encounter. The data comes from all [facility]. Test Date/Time Test Type Test Details Facility Name Nov 17, 2019 07:23 AM Consult Order [facility] [id number] Cons English As A Second Language Instructor's Choice ARTUR BLAS [facility] Dec 15, 2019 12:00 AM Laboratory - Chemistry Order CREATININ E (INCLUDES EGFR) GREEN TOP TUBE PLASMA SP [place] [place] [facility] Surgical Procedures: All associated to the encounter [...] TEST BLOOD GLUCOSE 50 Dec 19, 2019 [id number] September 04, 2019 PAMELA RAMSEY GUILLERMO ACCU-CHEK CHARLES PLUS (GLUCOSE) TEST STRIP Discontinued USE 1 STRIP FOR TESTING TWO TIMES PER WEEK - DIRECTED TO TEST BLOOD GLUCOSE 50 Jul 25, 2019 [id number] Nov 12, 2018 PAMELA RAMSEY [facility] ALBUTEROL SO4 90MCG/ACTUAT (CFC-F) INHL,ORAL,6.7GM Active INHALE 2 PUFFS BY ORAL INHALATION EVERY 4 HOURS NEEDED FOR BREATHING. SHAKE WELL. RINSE MOUTHPIECE FREQUENTLY TO PREVENT CLOGGING. USE NEEDED FOR SHORTNESS OF AIR/WHEEZING FOR BREATHING. SHAKE WELL. RINSE MOUTHPIECE FREQUENTLY TO PREVENT CLOGGING. USE NEEDED FOR SHORTNESS OF AIR/WHEEZING 1 Dec 19, 2019 [id number] September 04, 2019 PAMELA RAMSEY CB ALCOHOL PREP PAD Active USE 1 PAD ON SKIN BIW TO CLEAN AND DISINFECT THE SKIN 200 Sep 29, 2020 [id number] Sep 30, 2019 CHUCHO,[facility]URICIO [facility] ALCOHOL PREP PAD Discontinued USE 1 PAD ON SKIN BI W TO CLEAN AND DISINFECT THE SKIN 200 Dec 19, 2019 [id number] Jun 06, 2019 PAMELA RAMSEY CB ALCOHOL PREP PAD Discontinued USE 1 PAD ON SKIN BI W TO CLEAN AND DISINFECT THE SKIN 200 Jul 25, 2019 [id number] Nov 12, 2018 PAMELA RAMSEY [facility] ASCORBIC ACID 250MG TAB Non-VA TAKE ONE TABLET BY MOUTH ONCE A DAY Non-VA Documented by: SHANIQUA SCHMIDT nted at: [facility] ASPIRIN 25MG/DIPYRIDAMOLE 200MG CAP,SA Active T CHAPIN 1 CAPSULE BY MOUTH TWO TIMES A DAY - SWALLOW WHOLE. DO NOT CRUSH OR CHEW. FOR RECURRENT TIA/STROKE 180 Dec 19, 2019 [id number] Dec 20, 2018 PAMELA RAMSEY [facility] ASPIRIN 25MG/DIPYRIDAMOLE 200MG CAP,SA Discontinued T CHAPIN 1 CAPSULE BY MOUTH TWO TIMES A DAY - SWALLOW WHOLE. DO NOT CRUSH OR CHEW. FOR RECURRENT TIA/STROKE 180 Feb 06, 2019 [id number] Sep 28, 2018 ZACHARY GRECO [facility] ASPIRIN 81MG TAB,EC Non- VA TAKE ONE TABLET BY MOUTH ONCE A DAY Non-VA Documented by: PADMA LONG nted at: [facility] ATORVASTATIN CA 80MG TAB Active TAKE ONE TABLET BY MOUTH AT BEDTIME FOR CHOLESTEROL - REPORT ANY UNEXPLAINED MUSCLE PAIN/WEAKNESS TO YOUR PROVIDER 90 Dec 19, 2019 [id number] September 04, 2019 PAMELA RAMSEY [facility] ATORVASTATIN CA 80MG TAB Discontinued TAKE ONE TABLET BY MOUTH AT BEDTIME FOR CHOLESTEROL - REPORT ANY UNEXPLAINED MUSCLE PAIN/WEAKNESS TO YOUR PROVIDER 90 Dec 20, 2018 [id number] Nov 12, 2018 PAMELA RAMSEY [facility] BUDESONIDE 160MCG/FORMOTEROL FUM 4.5MCG/SPRAY INHL,ORAL,10.2 GM Active INHALE 2 PUFFS BY MOUTH TWO TIMES A DAY FOR BREATHING. SHAKE WELL. RINSE MOUTH AND SPIT AFTER EACH USE. 3 Apr 24, 2020 [id number] August 22, 2019 LISSA OATES [facility] CALCIUM/VITAMIN D TAB No n-VA TAKE BY MOUTH ONCE A DAY Non-V A Documented by: PADMA LONG nted at: [facility] CARBOXYMETHYLCELLULOSE NA 0.5% SOLN,OPH Active INSTILL ONE DROP IN BOTH EYES FOUR TIMES A DAY FOR DRY EYES 15 Feb 01, 2020 [id number] September 03 0 [facility] [...] FOR ALL JOINTS. 100 Oct 31, 2018 [id number] Oct 06, 2018 ANAYELI KIRKPATRICK [facility] FOR ALL JOINTS. 100 Jan 17, 2019 [id number] Dec 20, 2018 PAMELA RAMSEY FLUTICASONE PROPIONATE 50MCG/SPRAY SOLN,NASAL,16GM Active INSTILL 1 SPRAY IN EACH NOSTRIL ONCE A DAY SHAKE GENTLY BEFORE USE! - MUST BE USED DIRECTED FOR 3 WEEKS TO PROVIDE BENEFIT. * NO EARLY REFILLS * 1UNIT = 30DAYS AT 4 PF/DAY OR 60DAYS AT 2PF/DAY 2 Dec 19, 2019 [id number] August 26, 2019 PAMELA RAMSEY KETOTIFEN 0.025% SOLN,OPH Active INSTILL 1 DROP IN BOTH EYES TWO TIMES A DAY FOR RELIEF OF ALLERGY SYMPTOMS IN EYE(S) Feb 01, 2020 [id number] September 04, 2019 [facility] LANCET,SOFTCLIX Active USE LANCET BIW FOR TESTING BL OOD GLUCOSE DIRECTED Sep 29, 2020 [id number] Sep 30, 2019 MAURICIO RANKIN LANCET,SOFTCLIX Discontinued USE LANCET BIW FO R TESTING BLOOD GLUCOSE DIRECTED Dec 19, 2019 [id number] Jun 06, 2019 [facility] LANCET,SOFTCLIX Discontinued USE LANCET BIW FO R TESTING BLOOD GLUCOSE DIRECTED 100 Jul 25, 2019 [id number] Nov 12, 2018 PAMELA RAMSEY LISINOPRIL 40MG [...] ACID (REPLACES ACIPHEX) 180 Dec 19, 2019 [id number] August 26, 2019 PAMELA RAMSEY POLYETHYLENE GLYCOL [...] by: KATHERINE MATT nted at: [facility] PREGABALIN [...] DAY FOR INFECTION 90 Sep 23, 2020 [id number] Sep 24, 2019 ADRIEL HERNANDEZ CBGUILLERMO UREA 20% CREAM,TOP Active APPLY LIGHTLY (20%) TO AFFECTED AREA TWO TIMES A DAY NEEDED TO PROMOTE HEALING,RUB IN UNTIL COMPLETELY ABSORBED*FOR TOPICAL USE ONLY* APPLY TO BOTH FEET DIRECTED. 90 Sep 25, 2020 [id number] Sep 26, 2019 ADRIEL HERNANDEZ Problems (Conditions): [...] Alcohol intake above recommended sensible limits Active 205187310 PADMA LONG [facility] Allergic conjunctivitis Active 900314560 SILVER LAKENEDA [facility] Bilateral senile combined form cataracts of eyes Active 48736677415 9108 SILVER LAKEFACUNDONEDA Luda [facility] Bilateral tinnitus Active 9461474898408 CHASTITY JEAN [facility] Coronary arteriosclerosis Active 17728199 September 08, 2014 Entered By: PADMA LONG Comment: hx of ptca to RCA several yrs. agoSeptember 08, 2014 Entered By: PADMA LONG Comment: heart cath 09/01/14, neg. / previous stent to RCA,, [place] HATCHER, JENNEY R [facility] Diabetes mellitus Active 31738872 PAMELA RAMSEY [facility] Disorder of pancreas Active 0989230 September 08, 2014 Entered By: PADMA LONG Comment: 2.5cm low density lseion in bodyMay 2014 Entered By: PADMA LONG Comment: question of communication with pancreatic ductMa2014 Entered By: PADMA LONG Comment: favored to be cystic pancreatic cancerSeptember 08, 2014 Entered By: PADMA LONG Comment: per abdominal CT 09/01/14, [place] PADMA LONG [facility] Dry eyes Active 535724286 NEDA SHAW [facility] Gastro-esophageal reflux disease without esophagitis ( SNOMED CT 072967479) Active 021484818 ALF GUEVARA [facility] History of malignant neoplasm of lung Active 902223285 CHAPO BARRETO [facility] Hyperlipidemia (SNOMED CT 29653491) Active 53060800 PAMELA RAMSEY [facility] Lung mass Active 168832433 September 08, 2014 E ntered By: PADMA LONG Comment: 4.5 cm mass, post. segment right upper lobe.September 08, 2014 Entered By: PADMA LONG Comment: mild adenopathy in mediastinum and bilat. hilaMay 2014 Entered By: PADMA LONG Comment: most likely related to lung cancerMa2014 Entered By: PADMA LONG Comment: per ct angio of chest with contrast 09/01/14,[place] 2014 Entered By: PADMA LONG Comment: per path report- mod. differentiated bronchogenic adenoca. 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 Active 05739365 KATHERINE MATT Juan M [facility] Obesity Active 289439851 SONG BULLOCK Juan M [facility] Obstructive sleep apnea syndrome (SNOMED CT 07095342) Active 213619 015 PH[place]GLASS [facility] Pancreatic cyst Active 44830208 JAYLENE GUEVARA [facility] Papilloma of right eyelid Active [id number] NEDA SHAW Juan M [facility] Polyp of colon Active 62094650 Jan 23 16 Entered By: PADMA LONG Comment: c-scope 01/17/16, multiple benign colonic polypsJun 28, 2017 Entered By: PADMA LONG Comment: c-scope,06/25/17,[facility], three benign polyps- sigmoid colon, transverse colon,cecum. see path report cprs SHARRON TORRES [place] THAYER [facility] Pulmonary emphysema Active 66496930 0 BRIANA LESLYE Juan M [facility] Sensorineural hearing loss, bilateral Active 142833579 CHASTITY JEAN [facility] Snoring Active 72128643 Jayshree BULLOCKUBAIR [facility] Type 2 diabetes mellitus without complication Active 496717606 COLINNEDA Luda [facility] Environmental Allergies (ICD-9-CM 477.9) Inactive 477.9 Dec 18, 2017 PADMA LONG [facility] External hemorrhoids without mention of complication (ICD-9- CM 455.3) Inactive 455.3 Dec 18, 2017 [facility] Impotence of organic origin (ICD-9-CM 607.84) Inactive 607.84 Dec 18, 2017 PADMA LONG [facility] Screening for Lipoid disorders (ICD-9-CM V77.91) Inactive V77.91 Jan 18, 2007 [facility] Stye * (ICD-9-CM 373.11) Inactive 373.11 Dec 18, 8 Jan 18, 2007 Entered By: PADMA LONG Comment: bilat lower lids, chronic/recurrent PADMA LONG Juan [facility] Tobacco Use Disorder, [...] 10:49 AM PRIMARY CARE NOTE: [facility]: PRIMARY CARE NOTE DATE OF NOTE: NOV 12, 2019@10:49 ENTRY DATE: NOV 12, 2019@10:49:36 AUTHOR: SHANIQUA SCHMIDT EXP COSIGNER: URGENCY: STATUS: COMPLETED Primary Care Follow-Up Patient recently treated in: [facility] Admission Date: 11/11/19 Discharge Date: 11/11/19 Diagnoses were: TIA COVID PUI Hypoxia with exertion Medications added, stopped or changed: No changes Follow-up issues: F/U with bread oven operator, Dr. Serna as directed - for cardiac catherization that was postponed. F/U with Reji Hinojosa APRN on 11/13 @ 0210. Home Isolation until notified by health dept of your COVID results. /es/ SHANIQUA SCHMIDT RN Signed: 11/12/2019 11:11 Receipt Acknowledged By: 11/12/2019 15:01 /gisell/ SHANIQUA SCOTT OC
--- OUTSIDE RECORDS SUMMARY | 2019-12-02 13:58 | XMS REPORT | Continuity of Care Document ---
Demographics Preferred Language Unknown Marital Status Unknown Sikh Affiliation Unknown Race Unknown Ethnic Group Unknown Author Organization Unknown Address Unknown Phone Unavailable Allergies Active Description Code Type Severity Reaction Onset Reported/Identified Relationship to Patient Clinical Status Yes celery Food Allergy N/A N/A 03/12/2009 Yes celery Food Allergy 03/12/2009 Yes Plavix 75 mg tablet Drug Aller gy N/A N/A 11/01/2012 Yes Brilinta Drug Allergy N/A N/A 03/26/2013 Yes celery [id number] Drug Allergy Unknown N/A 07/28/2016 Yes clopidogrel [id number] Drug Aller gy Unknown NAUSEA 07/28/2016 Yes ticagrelor [id number] Drug Allerg y Unknown NAUSEA 07/28/2016 Yes celery [id number] Drug Allergy Severe ANAPHYLAXIS 03/29/2018 Yes clopidogrel [id number] Drug Aller gy Mild NAUSEA/HIVES 03/29/2018 Yes ticagrelor [id number] Drug Allerg y Mild NAUSEA/HIVES 03/29/2018 Medications [...] 11/29/2007 729.5 PAIN IN LIMB 11/29/2007 JAYE RGIGS APRN [...] JOINT INVOLVING SHOULDER REGION 01/10/2008 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1 TOBA FILM SOUND COORDINATOR USE DISORDER 06/11/2012 Ot 311 DEPRES SIVE DISORDER NEC 06/11/2012 Ot 414.01 COR ONARY ATHEROSCLEROSIS OF [place] CORON 06/11/2012 Ot 530.81 ESO PHAGEAL REFLUX [...] MD 401.9 HYPERTENSION, UNSPECIFIED ESSENTIAL 11/27/2012 [employer] MASON, JAYE T 40 1.9 HYPERTENSION, UNSPECIFIED ESSENTIAL [...] DARSHAN Ruelas Ot 288.60 LEUKOCYTOSIS, UNSPECIFIED 09/03/2014 MCIHAEL FERRO, DARSHAN Ruelas Ot 305 .1 TOBACCO USE DISORDER 09/03/2014 MICHAEL FERRO, DARSHAN Ruelas Ot 401 .9 HYPERTENSION NOS 09/03/2014 MICHAEL FERRO, DARSHAN Ruelas Ot 414.01 CORONARY ATHEROSCLEROSIS OF [place] CORON 09/03/2014 MICHAEL FERRO, DARSHAN Ruelas Ot [...] MICHAEL FERRO, DARSHAN Ruelas Ot 250.00 09/04/2014 DARSHAN RODRIGUEZ MD [...] Ruelas Ot 786 .6 09/04/2014 MICHAEL FERRO, DASRHAN Ruelas Ot V45.82 11/05/2014 Ot 823.00 11/05/2014 [...] Ot V58. 69 12/30/2014 TEREZA VISHNU S GREEN CHAINER Ot 162.3 12/30/2014 STARKS, HILAH S GREEN CHAINER Ot 250.00 12/30/2014 STARKS, HILAH S GREEN CHAINER Ot 272.4 12/30/2014 STARKS, HILAH S GREEN CHAINER Ot 414.00 12/30/2014 STARKS, HILAH S GREEN CHAINER Ot 793.0 12/30/2014 STARKS, VISHNU S GREEN CHAINER Ot V45.82 12/30/2014 TEREZA, HILAH S GREEN CHAINER Ot V58.69 01/13/2015 BRANDY FERRO, JAMMIE Ot [...] CHAPO J Ot 162.9 02/24/2015 VISHNU STARKS GREEN CHAINER Ot 162.3 02/24/2015 VISHNU STARKS GREEN CHAINER Ot 250.00 02/24/2015 VISHNU STARKS GREEN CHAINER Ot 272.4 02/24/2015 VISHNU STARKS GREEN CHAINER Ot 414.00 02/24/2015 VISHNU STARKS GREEN CHAINER Ot 793.0 02/24/2015 VISHNU STARKS GREEN CHAINER Ot V45.82 02/24/2015 VISHNU STARKSP Ot V58.69 [...] CHAPO J Ot 162.9 03/30/2015 VISHNU STARKS GREEN CHAINER Ot 162.3 03/30/2015 VISHNU STARKS GREEN CHAINER Ot 250.00 03/30/2015 VISHNU STARKS GREEN CHAINER Ot 272.4 03/30/2015 VISHNU STARKS GREEN CHAINER Ot 414.00 03/30/2015 VISHNU STARKS GREEN CHAINER Ot 793.0 03/30/2015 VISHNU STARKS S GREEN CHAINER Ot V45.82 03/30/2015 VISHNU STARKS S GREEN CHAINER Ot V58.69 03/30/2015 BRANDY FERRO, JAMMIE Ot C34. 10 03/30/2015 BRANDY FERRO, JAMMIE Ot E11. 9 03/30/2015 BRANDY FERRO, JAMMIE Ot E78. 5 03/30/2015 BRANDY FERRO, JAMMIE Ot I25. 10 03/30/2015 BRANDY FRERO, JAMMIE Ot Z51. 11 03/30/2015 BRANDY FERRO, [...] Ot I25. 10 ATHSCL HEART DISEASE OF [place] CORONARY 04/27/2015 JAMMIE NAVA MD Ot Z51. 11 ENCOUNTER FOR ANTINEOPLASTIC CHEMOTHERAP 04/27/2015 JAMMIE NAVA MD Ot Z79.899 OTHER PENITENTIARY (CURRENT) DRUG THERAPY 04/27/2015 JAMMIE NAVA MD Ot Z98. 61 CORONARY ANGIOPLASTY STATUS 07/28/2016 JAMMIE NAVA MD Ot C34. 10 MALIGNANT NEOPLASM OF UPPER LOBE, UNSP B 07/28/2016 JAMMIE NAVA MD Ot E11. 9 TYPE 2 DIABETES MELLITUS WITHOUT COMPLIC 07/28/2016 JAMMIE NAVA MD Ot E78. 5 HYPERLIPIDEMIA, UNSPECIFIED 07/28/2016 JAMMIE NAVA MD Ot I25. 10 ATHSCL HEART DISEASE OF [place] CORONARY 07/28/2016 JAMMIE NAVA MD, Ot Z51. 11 ENCOUNTER FOR ANTINEOPLASTIC CHEMOTHERAP 07/28/2016 JAMMIE NAVA MD Ot Z79.899 OTHER BRANCH LEAD (CURRENT) DRUG THERAPY 07/28/2016 JAMMIE NAVA MD, [...] MAL LAURA BRONCH/LUNG NOS 07/31/2016 VISHNU STARKS GREEN CHAINER Ot 162.3 MAL LAURA UPPER LOBE LUNG 07/31/2016 VISHNU STARKS GREEN CHAINER Ot 250.00 DIAB CHETNA WO COMPL, TYPE II OR UNSPEC TY 07/31/2016 VISHNU STARKS GREEN CHAINER Ot 272.4 HYPERLIPIDEMIA NEC/NOS 07/31/2016 VISHNU STARKS GREEN CHAINER Ot 414.00 CORON ATHEROSCLER NOS TYPE VESSEL, NATIV 07/31/2016 VISHNU STARKS GREEN CHAINER Ot 793.0 NOSP (ABN) FINDINGS ON RADIOLOGICAL [...] Ot I25. 10 ATHSCL HEART DISEASE OF [place] CORONARY 07/31/2016 JAMMIE NAVA MD Ot Z51. 11 ENCOUNTER FOR ANTINEOPLASTIC CHEMOTHERAP 07/31/2016 JAMMIE NAVA MD Ot Z79.899 OTHER BRANCH LEAD (CURRENT) DRUG THERAPY 07/31/2016 JAMMIE NAVA MD [...] MAL LAURA BRONCH/LUNG NOS 07/31/2016 VISHNU STARKS GREEN CHAINER Ot 162.3 MAL LAURA UPPER LOBE LUNG 07/31/2016 VISHNU STARKS GREEN CHAINER Ot 250.00 DIAB CHETNA WO COMPL, TYPE II OR UNSPEC TY 07/31/2016 VISHNU STARKS GREEN CHAINER Ot 272.4 HYPERLIPIDEMIA NEC/NOS 07/31/2016 VISHNU STARKS GREEN CHAINER Ot 414.00 CORON ATHEROSCLER NOS TYPE VESSEL, NATIV 07/31/2016 VISHNU STARKS GREEN CHAINER Ot 793.0 NOSP (ABN) FINDINGS ON RADIOLOGICAL OT 07/31/2016 VISHNU STARKS GREEN CHAINER Ot V45.82 PERCUTANEOUS TRANSLUM CORON ANGIOPLASTY 07/31/2016 VISHNU STARKS GREEN CHAINER Ot V58.69 OTH MED,LT,CURRENT USE 07/31/2016 JAMMIE NAVA MD, Ot C34. 10 MALIGNANT NEOPLASM OF UPPER LOBE, UNSP B 07/31/2016 JAMMIE NAVA MD Ot E11. 9 TYPE 2 DIABETES MELLITUS WITHOUT COMPLIC 07/31/2016 JAMMIE NAVA MD, Ot E78. 5 HYPERLIPIDEMIA, UNSPECIFIED 07/31/2016 JAMMIE NAVA MD, Ot I25. 10 ATHSCL HEART DISEASE OF [place] CORONARY 07/31/2016 JAMMIE NAVA MD, Ot Z51. 11 ENCOUNTER FOR ANTINEOPLASTIC CHEMOTHERAP 07/31/2016 JAMMIE NAVA MD Ot Z79.899 OTHER PENITENTIARY (CURRENT) DRUG THERAPY 07/31/2016 JAMMIE NAVA MD, [...] MAL LAURA BRONCH/LUNG NOS 09/12/2016 VISHNU STARKS GREEN CHAINER Ot 162.3 MAL LAURA UPPER LOBE LUNG 09/12/2016 VISHNU STARKS GREEN CHAINER Ot 250.00 DIAB CHETNA WO COMPL, TYPE II OR UNSPEC TY 09/12/2016 VISHNU STARKS GREEN CHAINER Ot 272.4 HYPERLIPIDEMIA NEC/NOS 09/12/2016 VISHNU STARKS S GREEN CHAINER Ot 414.00 CORON ATHEROSCLER NOS TYPE VESSEL, NATIV 09/12/2016 VISHNU STARKS GREEN CHAINER Ot 793.0 NOSP (ABN) FINDINGS ON RADIOLOGICAL [...] Ot I25. 10 ATHSCL HEART DISEASE OF [place] CORONARY 09/12/2016 JAMMIE NAVA MD Ot Z51. 11 ENCOUNTER FOR ANTINEOPLASTIC CHEMOTHERAP 09/12/2016 JAMMIE NAVA MD, Ot Z79.899 OTHER BRANCH LEAD (CURRENT) DRUG THERAPY 09/12/2016 JAMMIE NAVA MD Ot Z98. 61 CORONARY ANGIOPLASTY STATUS 09/12/2016 SRIDHAR BLACK GREEN CHAINER Ot E11.9 TYPE 2 DIABETES MELLITUS WITHOUT COMPLIC 09/12/2016 SIRDHAR BLACKP Ot I25.10 ATHSCL HEART DISEASE OF [place] CORONARY 09/12/2016 SRIDHAR BLACK GREEN CHAINER Ot 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 [place] 09/12/2016 SRIDHAR BLACK GREEN CHAINER Ot R06.02 SHORTNESS OF BREATH 09/12/2016 SRIDHAR BLACK GREEN CHAINER Ot R07.89 OTHER CHEST PAIN 09/12/2016 SRIDHAR BLACK GREEN CHAINER Ot T82.855A STENOSIS OF CORONARY ARTERY STENT, INITI 09/12/2016 SRIDHAR BLACK GREEN CHAINER Ot Z79.84 PENITENTIARY (CURRENT) USE OF ORAL HYPOGLYC 09/12/2016 SRIDHAR BLACK GREEN CHAINER Ot Z79.899 OTHER BRANCH LEAD (CURRENT) DRUG THERAPY 09/12/2016 SRIDHAR BLACK GREEN CHAINER Ot Z82.49 FAMILY HX OF ISCHEM HEART DIS AND OTH DI 09/12/2016 SRIDHAR BLACK GREEN CHAINER Ot Z85.118 PERSONAL HISTORY OF MALIGNANT NEOPLASM O 09/12/2016 SRIDHAR BLACK GREEN CHAINER Ot Z87.891 PERSONAL HISTORY OF NICOTINE DEPENDENCE 09/12/2016 SRIDHAR BLACK GREEN CHAINER Ot Z90.2 ACQUIRED ABSENCE OF LUNG [PART OF] 09/12/2016 SRIDHAR BLACK GREEN CHAINER Ot Z92.21 PERSONAL HISTORY OF ANTINEOPLASTIC CHEMO 09/21/[address] PAIN NOS 09/21/2016 GABI VALENCIA MD Ot V54. 01 ENCNTR FOR REMOVAL OF INTERNAL FIXATION 09/21/2016 GABI VALENCIA MD Ot V72. 84 EXAM PRE-OPERATIVE NOS 09/21/2016 GABI VALENCIA MD Ot V74. 8 SCREEN-BACTERIAL DIS NEC 09/21/2016 ESTEVAN FERRO, CHAPO J Ot 162.9 MAL LAUAR BRONCH/LUNG NOS 09/21/2016 VISHNU STARKS GREEN CHAINER Ot 162.3 MAL LAURA UPPER LOBE LUNG 09/21/2016 VISHNU STARKS GREEN CHAINER Ot 250.00 DIAB CHETNA WO COMPL, TYPE II OR UNSPEC TY 09/21/2016 VISHNU STARKS GREEN CHAINER Ot 272.4 HYPERLIPIDEMIA NEC/NOS 09/21/2016 VISHNU STARKS GREEN CHAINER Ot 414.00 CORON ATHEROSCLER NOS TYPE VESSEL, NATIV 09/21/2016 VISHNU STARKS GREEN CHAINER Ot 793.0 NOSP (ABN) FINDINGS ON RADIOLOGICAL OT 09/21/2016 VISHNU STARKSP Ot V45.82 PERCUTANEOUS TRANSLUM CORON ANGIOPLASTY 09/21/2016 VISHNU STARKS GREEN CHAINER Ot V58.69 OTH MED,LT,CURRENT USE 09/21/2016 BRANDY FERRO, [facility] Ot C34. 10 MALIGNANT NEOPLASM OF UPPER LOBE, UNSP B 09/21/2016 JAMMIE NAVA MD Ot E11. 9 TYPE 2 DIABETES MELLITUS WITHOUT COMPLIC 09/21/2016 JAMMIE NAVA MD Ot E78. 5 HYPERLIPIDEMIA, UNSPECIFIED 09/21/2016 JAMMIE NAVA MD Ot I25. 10 ATHSCL HEART DISEASE OF [place] CORONARY 09/21/2016 JAMMIE NAVA MD Ot Z51. 11 ENCOUNTER FOR ANTINEOPLASTIC CHEMOTHERAP 09/21/2016 JAMMIE NAVA MD Ot Z79.899 OTHER PENITENTIARY (CURRENT) DRUG THERAPY 09/21/2016 JAMMIE NAVA MD Ot Z98. 61 CORONARY ANGIOPLASTY STATUS 09/21/2016 SRIDHAR BLACK GREEN CHAINER Ot E11.9 TYPE 2 DIABETES MELLITUS WITHOUT COMPLIC 09/21/2016 SRIDHAR BLACK GREEN CHAINER Ot I25.10 ATHSCL HEART DISEASE OF [place] CORONARY 09/21/2016 SRIDHAR BLACK L GREEN CHAINER Ot 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 [place] 09/21/2016 SRIDHAR BLACK L GREEN CHAINER Ot R06.02 SHORTNESS OF BREATH 09/21/2016 SRIDHAR BLACK L GREEN CHAINER Ot R07.89 OTHER CHEST PAIN 09/21/2016 SRIDHAR BLACK L GREEN CHAINER Ot T82.855A STENOSIS OF CORONARY ARTERY STENT, INITI 09/21/2016 SRIDHAR BLACK L GREEN CHAINER Ot Z79.84 PENITENTIARY (CURRENT) USE OF ORAL HYPOGLYC 09/21/2016 SRIDHAR BLACK L GREEN CHAINER Ot Z79.899 OTHER BRANCH LEAD (CURRENT) DRUG THERAPY 09/21/2016 SRIDHAR BLACK L GREEN CHAINER Ot Z82.49 FAMILY HX OF ISCHEM HEART DIS AND OTH DI 09/21/2016 SRIDHAR BLACK L GREEN CHAINER Ot Z85.118 PERSONAL HISTORY OF MALIGNANT NEOPLASM O 09/21/2016 SRIDHAR BLACK L GREEN CHAINER Ot Z87.891 PERSONAL HISTORY OF NICOTINE DEPENDENCE 09/21/2016 SRIDHAR BLACK L GREEN CHAINER Ot Z90.2 ACQUIRED ABSENCE OF LUNG [PART OF] 09/21/2016 SRIDHAR BLACK L GREEN CHAINER Ot Z92.21 PERSONAL HISTORY OF ANTINEOPLASTIC CHEMO [...] CCDS Ot I25.10 ATHSCL HEART DISEASE OF [place] CORONARY 09/22/2016 AKANKSHA FERRO FACC, ALI FACP CCDS Ot R00.2 PALPITATIONS 09/22/2016 AKANKSHA FERRO FACC, DELBERT FACP CCDS Ot R06.02 SHORTNESS OF BREATH 09/22/2016 AKANKSHA FERRO FACC, [facility] CCDS Ot Z87.891 PERSONAL HISTORY OF NICOTINE DEPENDENCE 09/23/2016 SRIDHAR BLACK GREEN CHAINER Ot E11.9 TYPE 2 DIABETES MELLITUS WITHOUT COMPLIC 09/23/2016 SRIDHAR BLACK GREEN CHAINER Ot I25.10 ATHSCL HEART DISEASE OF [place] CORONARY 09/23/2016 SRIDHAR BLACK L GREEN CHAINER Ot 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 [place] 09/23/2016 SRIDHAR BLACK GREEN CHAINER Ot R06.02 SHORTNESS OF BREATH 09/23/2016 SRIDHAR BLACK GREEN CHAINER Ot R07.89 OTHER CHEST PAIN 09/23/2016 SRIDHAR BLACK GREEN CHAINER Ot T82.855A STENOSIS OF CORONARY ARTERY STENT, INITI 09/23/2016 SRIDHAR BLACK GREEN CHAINER Ot Z79.84 BRANCH LEAD (CURRENT) USE OF ORAL HYPOGLYC 09/23/2016 SRIDHAR BLACK L GREEN CHAINER Ot Z79.899 OTHER BRANCH LEAD (CURRENT) DRUG THERAPY 09/23/2016 SRIDHAR BLACK GREEN CHAINER Ot Z82.49 FAMILY HX OF ISCHEM HEART DIS AND OTH DI 09/23/2016 SRIDHAR BLACK L GREEN CHAINER Ot Z85.118 PERSONAL HISTORY OF MALIGNANT NEOPLASM O 09/23/2016 SRIDHAR BLACK GREEN CHAINER Ot Z87.891 PERSONAL HISTORY OF NICOTINE DEPENDENCE 09/23/2016 SRIDHAR BLACK L GREEN CHAINER Ot Z90.2 ACQUIRED ABSENCE OF LUNG [PART OF] 09/23/2016 SRIDHAR BLACK L GREEN CHAINER Ot Z92.21 PERSONAL HISTORY OF ANTINEOPLASTIC CHEMO [...] CCDS Ot I25.10 ATHSCL HEART DISEASE OF [place] CORONARY 10/03/2016 AKANKSHA FERRO FACC, DELBERT [facility] CCDS Ot R00.2 PALPITATIONS 10/03/2016 AKANKSHA FERRO FACC, DELBERT FACP CCDS Ot R06.02 SHORTNESS OF BREATH 10/03/2016 [facility]SHA [facility] Ot Z87.891 PERSONAL HISTORY OF NICOTINE DEPENDENCE 10/05/2016 SRIDHAR BLACK GREEN CHAINER Ot E11.9 TYPE 2 DIABETES MELLITUS WITHOUT COMPLIC 10/05/2016 SRIDHAR BLACK L GREEN CHAINER Ot I25.10 ATHSCL HEART DISEASE OF [place] CORONARY 10/05/2016 SRIDHAR BLACK L GREEN CHAINER Ot 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 [place] 10/05/2016 SRIDHAR BLACK L GREEN CHAINER Ot R06.02 SHORTNESS OF BREATH 10/05/2016 SRIDHAR BLACK L GREEN CHAINER Ot R07.89 OTHER CHEST PAIN 10/05/2016 SRIDHAR BLACK L GREEN CHAINER Ot T82.855A STENOSIS OF CORONARY ARTERY STENT, INITI 10/05/2016 SRIDHAR BLACK L GREEN CHAINER Ot Z79.84 PENITENTIARY (CURRENT) USE OF ORAL HYPOGLYC 10/05/2016 SRIDHAR BLACK L GREEN CHAINER Ot Z79.899 OTHER BRANCH LEAD (CURRENT) DRUG THERAPY 10/05/2016 SRIDHAR BLACK L GREEN CHAINER Ot Z82.49 FAMILY HX OF ISCHEM HEART DIS AND OTH DI 10/05/2016 SRIDHAR BLACK L GREEN CHAINER Ot Z85.118 PERSONAL HISTORY OF MALIGNANT NEOPLASM O 10/05/2016 SRIDHAR BLACK GREEN CHAINER Ot Z87.891 PERSONAL HISTORY OF NICOTINE DEPENDENCE 10/05/2016 SRIDHAR BLACK L GREEN CHAINER Ot Z90.2 ACQUIRED ABSENCE OF LUNG [PART OF] 10/05/2016 SRIDHAR BLACK L GREEN CHAINER Ot Z92.21 PERSONAL HISTORY OF ANTINEOPLASTIC CHEMO 03/08/[address]86.[address] PAIN NOS 03/08/2017 GABI VALENCIA MD Ot V54. 01 ENCNTR FOR REMOVAL OF INTERNAL FIXATION 03/08/2017 GABI VALENCIA MD Ot V72. 84 EXAM PRE-OPERATIVE NOS 03/08/2017 GABI VALENCIA MD Ot V74. 8 SCREEN-BACTERIAL DIS NEC 03/08/2017 ESTEVAN FERRO, CHAPO Lares Ot 162.9 MAL LAURA BRONCH/LUNG NOS 03/08/2017 VISHNU STARKS GREEN CHAINER Ot 162.3 MAL LAURA UPPER LOBE LUNG 03/08/2017 VISHNU STARKS GREEN CHAINER Ot 250.00 DIAB CHETNA WO COMPL, TYPE II OR UNSPEC TY 03/08/2017 VISHNU STARKS GREEN CHAINER Ot 272.4 HYPERLIPIDEMIA NEC/NOS 03/08/2017 VISHNU STARKS GREEN CHAINER Ot 414.00 CORON ATHEROSCLER NOS TYPE VESSEL, NATIV 03/08/2017 VISHNU STARKS GREEN CHAINER Ot 793.0 NOSP (ABN) FINDINGS ON RADIOLOGICAL [...] Ot I25. 10 ATHSCL HEART DISEASE OF [place] CORONARY 03/08/2017 JAMMIE NAVA MD Ot Z51. 11 ENCOUNTER FOR ANTINEOPLASTIC CHEMOTHERAP 03/08/2017 JAMMIE NAVA MD Ot Z79.899 OTHER PENITENTIARY (CURRENT) DRUG THERAPY 03/08/2017 JAMMIE NAVA MD Ot Z98. 61 CORONARY ANGIOPLASTY STATUS 03/08/2017 AKANKSHA FERRO FACC, DELBERT GOEL CCDS Ot C34.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, LEFT B 03/08/2017 AKANKSHA FERRO FACC, ALI FACP CCDS Ot E13.9 OTHER SPECIFIED DIABETES MELLITUS WITHOU 03/08/2017 AKANKSHA FERRO FACC, ALI TRISHP CCDS Ot E78.4 OTHER HYPERLIPIDEMIA 03/08/2017 AKANKSHA FERRO [facility], [facility]I [facility] CCDS Ot I25.10 ATHSCL HEART DISEASE OF [place] CORONARY 03/08/2017 AKANKSHA FERRO [facility], ALI FACP CCDS Ot R00.2 PALPITATIONS 03/08/2017 AKANKSHA FERRO [facility], ALI FACP CCDS Ot R06.02 SHORTNESS OF BREATH 03/08/2017 AKANKSHA FERRO [facility], ALI FACP CCDS Ot Z87.891 PERSONAL HISTORY OF NICOTINE DEPENDENCE 12/31/2017 GABI VALENCIA MD Ot V54. 01 ENCNTR FOR REMOVAL OF INTERNAL FIXATION 12/31/2017 GABI VALENCIA MD Ot V72. 84 EXAM PRE-OPERATIVE NOS 12/31/2017 GABI VALENCIA MD Ot V74. 8 SCREEN-BACTERIAL DIS NEC 12/31/2017 ESTEVAN FERRO, CHAPO J Ot 162.9 MAL LAURA BRONCH/LUNG NOS 12/31/2017 VISHNU STARKS GREEN CHAINER Ot 162.3 MAL LAURA UPPER LOBE LUNG 12/31/2017 VISHNU STARKS GREEN CHAINER Ot 250.00 DIAB CHETNA WO COMPL, TYPE II OR UNSPEC TY 12/31/2017 VISHNU STARKS S GREEN CHAINER Ot 272.4 HYPERLIPIDEMIA NEC/NOS 12/31/2017 VISHNU STARKS GREEN CHAINER Ot 414.00 CORON ATHEROSCLER NOS TYPE VESSEL, NATIV 12/31/2017 VISHNU STARKS GREEN CHAINER Ot 793.0 NOSP (ABN) FINDINGS ON RADIOLOGICAL OT 12/31/2017 VISHNU STARKS GREEN CHAINER Ot V45.82 PERCUTANEOUS TRANSLUM CORON ANGIOPLASTY 12/31/2017 VISHNU STARKS GREEN CHAINER Ot V58.69 OT MED,LT,CURRENT USE 12/31/2017 JAMMIE NAVA MD Ot C34. 10 MALIGNANT NEOPLASM OF UPPER LOBE, UNSP B 12/31/2017 JAMMIE NAVA MD Ot E11. 9 TYPE 2 DIABETES MELLITUS WITHOUT COMPLIC 12/31/2017 JAMMIE NAVA MD Ot E78. 5 HYPERLIPIDEMIA, UNSPECIFIED 12/31/2017 JAMMIE NAVA MD Ot I25. 10 ATHSCL HEART DISEASE OF [place] CORONARY 12/31/2017 JAMMIE NAVA MD Ot Z51. 11 ENCOUNTER FOR ANTINEOPLASTIC CHEMOTHERAP 12/31/2017 JAMMIE NAVA MD Ot Z79.899 OTHER BRANCH LEAD (CURRENT) DRUG THERAPY 12/31/2017 BRANDY FERRO, JAMMIE Ot Z98. 61 CORONARY ANGIOPLASTY STATUS 12/31/2017 AKANKSHA FERRO [facility], ALI FACP CCDS Ot C34.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, LEFT B 12/31/2017 AKANKSHA FERRO FAC, ALI FACP CCDS Ot E13.9 OTHER SPECIFIED DIABETES MELLITUS WITHOU 12/31/2017 AKANKSHA FERRO FACC, ALI FACP CCDS Ot E78.4 OTHER HYPERLIPIDEMIA 12/31/2017 AKANKSHA FERRO [facility], ALI FACP CCDS Ot I25.10 ATHSCL HEART DISEASE OF [place] CORONARY 12/31/2017 AKANKSHA FERRO [facility], ALI FACP CCDS Ot R00.2 PALPITATIONS 12/31/2017 AKANKSHA FERRO [facility], ALI FACP CCDS Ot R06.02 SHORTNESS OF [...] MD Ot I25.10 ATHSCL HEART DISEASE OF [place] CORONARY 01/01/2018 SRAVAN LOVE MD Ot I69.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 01/01/2018 SRAVAN LOVE MD Ot K21 .9 GASTRO-ESOPHAGEAL REFLUX DISEASE WITHOUT 01/01/2018 SRAVAN LOVE MD Ot Z79.84 PENITENTIARY (CURRENT) USE OF ORAL HYPOGLYC 01/01/2018 SRAVAN LOVE MD Ot Z79.899 OTHER PENITENTIARY (CURRENT) DRUG THERAPY 01/01/2018 SRAVAN LOVE MD [...] MD Ot I25.10 ATHSCL HEART DISEASE OF [place] CORONARY 01/01/2018 SRAVAN LOVE MD Ot I69.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 01/01/2018 SRAVAN LOVE MD Ot K21 .9 GASTRO-ESOPHAGEAL REFLUX DISEASE WITHOUT 01/01/2018 SRAVAN LOVE MD Ot Z79.84 BRANCH LEAD (CURRENT) USE OF ORAL HYPOGLYC 01/01/2018 SRAVAN LOVE MD Ot Z79.899 OTHER PENITENTIARY (CURRENT) DRUG THERAPY 01/01/2018 SRAVAN LOVE MD [...] MD Ot I25.10 ATHSCL HEART DISEASE OF [place] CORONARY 01/03/2018 SRAVAN LOVE MD Ot I69.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 01/03/2018 SRAVAN LOVE MD, Ot K21 .9 GASTRO-ESOPHAGEAL REFLUX DISEASE WITHOUT 01/03/2018 SRAVAN LOVE MD Ot Z79.84 PENITENTIARY (CURRENT) USE OF ORAL HYPOGLYC 01/03/2018 SRAVAN LOVE MD Ot Z79.899 OTHER BRANCH LEAD (CURRENT) DRUG THERAPY 01/03/2018 SRAVAN LOVE MD [...] MD Ot I25.10 ATHSCL HEART DISEASE OF [place] CORONARY 01/03/2018 SRAVAN LOVE MD Ot I69.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 01/03/2018 SRAVAN LOVE MD Ot K21 .9 GASTRO-ESOPHAGEAL REFLUX DISEASE WITHOUT 01/03/2018 SRAVAN LOVE MD Ot Z79.84 BRANCH LEAD (CURRENT) USE OF ORAL HYPOGLYC 01/03/2018 SRAVAN LOVE MD Ot Z79.899 OTHER PENITENTIARY (CURRENT) DRUG THERAPY 01/03/2018 SRAVAN LOVE MD [...] MAL LAURA BRONCH/LUNG NOS 03/05/2018 VISHNU STARKS GREEN CHAINER Ot 162.3 MAL LAURA UPPER LOBE LUNG 03/05/2018 VISHNU STARKS GREEN CHAINER Ot 250.00 DIAB CHETNA WO COMPL, TYPE II OR UNSPEC TY 03/05/2018 VISHNU STARKS GREEN CHAINER Ot 272.4 HYPERLIPIDEMIA NEC/NOS 03/05/2018 VISHNU STARKS GREEN CHAINER Ot 414.00 CORON ATHEROSCLER NOS TYPE VESSEL, NATIV 03/05/2018 VISHNU STARKS GREEN CHAINER Ot 793.0 NOSP (ABN) FINDINGS ON RADIOLOGICAL [...] Ot I25. 10 ATHSCL HEART DISEASE OF [place] CORONARY 03/05/2018 JAMMIE NAVA MD Ot Z51. 11 ENCOUNTER FOR ANTINEOPLASTIC CHEMOTHERAP 03/05/2018 JAMMIE NAVA MD Ot Z79.899 OTHER BRANCH LEAD (CURRENT) DRUG THERAPY 03/05/2018 JAMMIE NAVA MD [...] CCDS Ot I25.10 ATHSCL HEART DISEASE OF [place] CORONARY 03/05/2018 AKANKSHA FERRO FACC, ALI FACP CCDS Ot R00.2 PALPITATIONS 03/05/2018 AKANKSHA FERRO FACC, ALI FACP CCDS Ot R06.02 SHORTNESS OF BREATH 03/05/2018 AKANKSHA FERRO FACC, ALI FACP CCDS Ot Z87.891 PERSONAL HISTORY OF NICOTINE DEPENDENCE 03/07/2018 LISSA OATES [employer]CRETE [employer] [place] Ot G47.30 SLEEP APNEA, UNSPECIFIED 03/07/2018 VIKTOR OATESINE E [employer]CR[employer]E [employer] [place] Ot J44.9 CHRONIC OBSTRUCTIVE PULMONARY DISEASE, U 03/07/2018 LISSA OATES [employer]CR[employer]E [employer] [place] Ot R06.02 SHORTNESS OF BREATH 03/07/2018 LISSA OATES [employer]CR[employer]E [employer] [place] Ot Z72.0 TOBACCO USE 03/07/2018 LISSA OATES [employer]CR[employer]E [employer] [place] Ot Z85.118 PERSONAL HISTORY OF MALIGNANT NEOPLASM O 03/12/2018 VIKTOR OATESINE E [employer] [place] Ot C34.90 MALIGNANT NEOPLASM OF UNSP PART OF UNSP 03/12/2018 VIKTOR OATESINE E [employer] [place] Ot G47.30 SLEEP APNEA, UNSPECIFIED 03/12/2018 VIKTOR OATESINE E [employer] [place] Ot J43.9 EMPHYSEMA, UNSPECIFIED 03/12/2018 VIKTOR OATESINE E [employer] [place] Ot K76.0 FATTY (CHANGE OF) LIVER, NOT ELSEWHERE C 03/12/2018 VIKTOR OATESINE E [employer] [place] Ot Z72.0 TOBACCO USE 03/12/2018 LISSA OATES [employer]CR[employer]E [employer] [place] Ot C34.90 MALIGNANT NEOPLASM OF UNSP PART OF UNSP 03/12/2018 VIKTOR OATESINE E [employer] [place] Ot G47.30 SLEEP APNEA, UNSPECIFIED 03/12/2018 VIKTOR OATESINE E [employer] [place] Ot J43.9 EMPHYSEMA, UNSPECIFIED 03/12/2018 VIKTOR OATESINE E [employer] [place] Ot K76.0 FATTY (CHANGE OF) LIVER, NOT ELSEWHERE C 03/12/2018 VIKTOR OATESINE E [employer] [place] Ot Z72.0 TOBACCO USE 03/19/2018 AKANKSHA FERRO [...] CCDS Ot I25.10 ATHSCL HEART DISEASE OF [place] CORONARY 03/20/2018 AKANKSHA FERRO FACC, ALI FACP CCDS Ot K21.9 GASTRO-ESOPHAGEAL REFLUX DISEASE WITHOUT 03/20/2018 AKANKSHA FERRO FACC, ALI FACP CCDS Ot R00.2 PALPITATIONS 03/20/2018 AKANKSHA FERRO FACC, ALI FACP CCDS Ot Z79.82 PENITENTIARY (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 03/20/2018 AKANKSHA FERRO FACC, ALI FACP CCDS Ot Z79.84 BRANCH LEAD (CURRENT) USE OF ORAL HYPOGLYC 03/20/2018 AKANKSHA FERRO FACC, ALI FACP CCDS Ot Z79.899 OTHER BRANCH LEAD (CURRENT) DRUG THERAPY 03/20/2018 AKANKSHA FERRO FACC, [...] MAL LAURA BRONCH/LUNG NOS 03/29/2018 VISHNU STARKS GREEN CHAINER Ot 162.3 MAL LAURA UPPER LOBE LUNG 03/29/2018 VISHNU STARKS GREEN CHAINER Ot 250.00 DIAB CHETNA WO COMPL, TYPE II OR UNSPEC TY 03/29/2018 VISHNU STARKS GREEN CHAINER Ot 272.4 HYPERLIPIDEMIA NEC/NOS 03/29/2018 VISHNU STARKS GREEN CHAINER Ot 414.00 CORON ATHEROSCLER NOS TYPE VESSEL, NATIV 03/29/2018 VISHNU STARKS GREEN CHAINER Ot 793.0 NOSP (ABN) FINDINGS ON RADIOLOGICAL OT 03/29/2018 VISHNU STARKS GREEN CHAINER Ot V45.82 PERCUTANEOUS TRANSLUM CORON ANGIOPLASTY 03/29/2018 VISHNU STARKS GREEN CHAINER Ot V58.69 OT MED,LT,CURRENT USE 03/29/2018 JAMMIE NAVA MD Ot C34. 10 MALIGNANT NEOPLASM OF UPPER LOBE, UNSP B 03/29/2018 JAMMIE NAVA MD Ot E11. 9 TYPE 2 DIABETES MELLITUS WITHOUT COMPLIC 03/29/2018 JAMMIE NAVA MD Ot E78. 5 HYPERLIPIDEMIA, UNSPECIFIED 03/29/2018 JAMMIE NAVA MD Ot I25. 10 ATHSCL HEART DISEASE OF [place] CORONARY 03/29/2018 JAMMIE NAVA MD Ot Z51. 11 ENCOUNTER FOR ANTINEOPLASTIC CHEMOTHERAP 03/29/2018 JAMMIE NAVA MD Ot Z79.899 OTHER BRANCH LEAD (CURRENT) DRUG THERAPY 03/29/2018 JAMMIE NAVA MD [...] CCDS Ot I25.10 ATHSCL HEART DISEASE OF [facility] CORONARY 03/29/2018 AKANKSHA FERRO FACC, DELBERT FACP CCDS Ot R00.2 PALPITATIONS 03/29/2018 AKANKSHA FERRO FACC, DELBERT FACP CCDS Ot R06.02 SHORTNESS OF BREATH 03/29/2018 AKANKSHA FERRO FACC, DELBERT FACP CCDS Ot Z87.891 PERSONAL HISTORY OF NICOTINE DEPENDENCE 03/29/2018 LISSA OATES APRN Ot G47.30 SLEEP APNEA, UNSPECIFIED 03/29/2018 LISSA OATES CONCRETE [employer] [place] Ot J44.9 CHRONIC OBSTRUCTIVE PULMONARY DISEASE, U 03/29/2018 LISSA OATES CONCRETE [employer] [place] Ot R06.02 SHORTNESS OF BREATH 03/29/2018 LISSA OATES CONCRETE [employer] [place] Ot Z72.0 TOBACCO USE 03/29/2018 LISSA OATES CONCRETE [employer] [place] Ot Z85.118 PERSONAL HISTORY OF MALIGNANT NEOPLASM O 03/29/2018 LISSA OATES CONCRETE [employer] [place] Ot C34.90 MALIGNANT NEOPLASM OF UNSP PART OF UNSP 03/29/2018 LISSA OATES CONCRETE [employer] [place] Ot G47.30 SLEEP APNEA, UNSPECIFIED 03/29/2018 LISSA OATES CONCRETE [employer] [place] Ot J43.9 EMPHYSEMA, UNSPECIFIED 03/29/2018 LISSA OATES CONCRETE [employer] [place] Ot K76.0 FATTY (CHANGE OF) LIVER, NOT ELSEWHERE C 03/29/2018 LISSA OATES CONCRETE [employer] [place] Ot Z72.0 TOBACCO USE 03/29/2018 AKANKSHA FERRO FACC, DELBERT FACP CCDS Ot E11.9 TYPE 2 DIABETES MELLITUS WITHOUT COMPLIC 03/29/2018 DELBERT VALE MD, FACC FACP CCDS Ot G47.33 OBSTRUCTIVE SLEEP APNEA (ADULT) (PEDIATR 03/29/2018 AKANKSHA FERRO FACC, DELBERT FACP CCDS Ot I25.10 ATHSCL HEART DISEASE OF [facility] CORONARY 03/29/2018 AKANKSHA FERRO FACC, DELBERT FACP CCDS Ot K21.9 GASTRO-ESOPHAGEAL REFLUX DISEASE WITHOUT 03/29/2018 AKANKSHA FERRO FACC, DELBERT FACP CCDS Ot R00.2 PALPITATIONS 03/29/2018 AKANKSHA FERRO FACC, DELBERT FACP CCDS Ot Z79.82 BRANCH LEAD (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 03/29/2018 DELBERT VALE MD, FACC FACP CCDS Ot Z79.84 PENITENTIARY (CURRENT) USE OF ORAL HYPOGLYC 03/29/2018 DELBERT VALE MD, FACC FACP CCDS Ot Z79.899 OTHER PENITENTIARY (CURRENT) DRUG THERAPY 03/29/2018 DELBERT VALE MD, [...] Ot I25. 10 ATHSCL HEART DISEASE OF [facility] CORONARY 03/29/2018 JAMMIE NAVA MD, Ot Z51. 11 ENCOUNTER FOR ANTINEOPLASTIC CHEMOTHERAP 03/29/2018 JAMMIE NAVA MD, Ot Z79.899 OTHER BRANCH LEAD (CURRENT) DRUG THERAPY 03/29/2018 JAMMIE NAVA MD [...] MD Ot I25.10 ATHSCL HEART DISEASE OF [place] CORONARY 04/06/2018 ADRIEL WHEELER MD Ot J44 .9 CHRONIC OBSTRUCTIVE PULMONARY DISEASE, U 04/06/2018 ADRIEL WHEELER MD, Ot K21 .9 GASTRO-ESOPHAGEAL REFLUX DISEASE WITHOUT 04/06/2018 ADRIEL WHEELER MD, Ot Z79.82 PENITENTIARY (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 04/06/2018 ADRIEL WHEELER MD Ot Z79.84 BRANCH LEAD (CURRENT) USE OF ORAL HYPOGLYC 04/06/2018 ADRIEL WHEELER MD, Ot Z79.899 OTHER PENITENTIARY (CURRENT) DRUG THERAPY 04/06/2018 ADRIEL WHEELER MD, Ot Z86.73 PRSNL HX OF TIA (TIA), AND CEREB INFRC W 04/06/2018 ADRIEL WHEELER MD, Ot Z87.891 PERSONAL HISTORY OF NICOTINE DEPENDENCE 05/29/2018 LISSA OATES CONCRETE BLOCK [place] Ot C34.90 MALIGNANT NEOPLASM OF UNSP PART OF UNSP 05/29/2018 LISSA OATES CONCRETE BLOCK [place] Ot G47.30 SLEEP APNEA, UNSPECIFIED 05/29/2018 LISSA OATES CONCRETE [employer] [place] Ot J43.9 EMPHYSEMA, UNSPECIFIED 05/29/2018 LISSA OATES CONCRETE [employer] [place] Ot K76.0 FATTY (CHANGE OF) LIVER, NOT ELSEWHERE C 05/29/2018 LISSA OATES CONCRETE [employer] [place] Ot Z72.0 TOBACCO USE 05/29/2018 AKANKSHA FERRO FACC, DELBERT FACP CCDS Ot E11.9 TYPE 2 DIABETES MELLITUS WITHOUT COMPLIC 05/29/2018 AKANKSHA FERRO FACC, DELBERT FACP CCDS Ot G47.33 OBSTRUCTIVE SLEEP APNEA (ADULT) (PEDIATR 05/29/2018 AKANKSHA FERRO FACC, ALI FACP CCDS Ot I25.10 ATHSCL HEART DISEASE OF [facility] CORONARY 05/29/2018 AKANKSHA FERRO FACC, DELBERT FACP CCDS Ot K21.9 GASTRO-ESOPHAGEAL REFLUX DISEASE WITHOUT 05/29/2018 AKANKSHA FERRO FACC, DELBERT FACP CCDS Ot R00.2 PALPITATIONS 05/29/2018 AKANKSHA FERRO FACC, DELBERT FACP CCDS Ot Z79.82 BRANCH LEAD (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 05/29/2018 AKANKSHA FERRO FACC, DELBERT FACP CCDS Ot Z79.84 BRANCH LEAD (CURRENT) USE OF ORAL HYPOGLYC 05/29/2018 AKANKSHA FERRO FACC, ALI FACP CCDS Ot Z79.899 OTHER BRANCH LEAD (CURRENT) DRUG THERAPY 05/29/2018 AKANKSHA FERRO FACC, [...] OF CORONARY ANGIOPLASTY IMPLANT 06/12/2018 LISSA OATES CONCRETE BLOCK [place] Ot C34.90 MALIGNANT NEOPLASM OF UNSP PART OF [facility] 06/12/2018 LISSA OATES APRN Ot G47.30 SLEEP APNEA, UNSPECIFIED 06/12/2018 LISSA OATES CONCRETE [employer] [place] Ot J43.9 EMPHYSEMA, UNSPECIFIED 06/12/2018 LISSA OATES CONCRETE BLOCK [place] Ot K76.0 FATTY (CHANGE OF) LIVER, NOT ELSEWHERE C 06/12/2018 LISSA OATES CONCRETE [employer] [place] Ot Z72.0 TOBACCO USE 06/14/2018 PAMELA RAMSEY GREEN CHAINER Ot K59. 09 OTHER CONSTIPATION 06/14/2018 PAMELA RAMSEY GREEN CHAINER Ot M43.8X6 OTHER SPECIFIED DEFORMING DORSOPATHIES, 06/14/2018 PAMELA RAMSEY GREEN CHAINER Ot M47.816 SPONDYLOSIS W/O MYELOPATHY OR RADICULOPA 07/15/2018 LISSA OATES CONCRETE [employer] [place] Ot C34.90 MALIGNANT NEOPLASM OF UNSP PART OF [facility] 07/15/2018 LISSA OATES APRN Ot G47.30 SLEEP APNEA, UNSPECIFIED 07/15/2018 LISSA OATES CONCRETE [employer] [place] Ot J43.9 EMPHYSEMA, UNSPECIFIED 07/15/2018 LISSA OATES APRN Ot K76.0 FATTY (CHANGE OF) LIVER, NOT ELSEWHERE C 07/15/2018 LISSA OATES CONCRETE [employer] [place] Ot Z72.0 TOBACCO USE 07/15/2018 LISSA OATES CONCRETE BLOCK [place] Ot C34.90 MALIGNANT NEOPLASM OF UNSP PART OF [facility] 07/15/2018 LISSA OATES CONCRETE [employer] [place] Ot G47.30 SLEEP APNEA, UNSPECIFIED 07/15/2018 LISSA OATES APRN Ot J43.9 EMPHYSEMA, UNSPECIFIED 07/15/2018 LISSA OATES APRN Ot K76.0 FATTY (CHANGE OF) LIVER, NOT ELSEWHERE C 07/15/2018 LISSA OATES APRN Ot Z72.0 TOBACCO USE 07/29/2018 PAMELA RAMSEYP Ot K59. 09 OTHER CONSTIPATION 07/29/2018 PAMELA RAMSEY GREEN CHAINER Ot M43.8X6 OTHER SPECIFIED DEFORMING DORSOPATHIES, 07/29/2018 PAMELA RAMSEY GREEN CHAINER Ot M47.816 SPONDYLOSIS W/O MYELOPATHY OR RADICULOPA 08/06/2018 ESTEVAN FERRO, CHAPO J Ot 162.9 MAL LAURA BRONCH/LUNG NOS 08/06/2018 VISHNU STARKS GREEN CHAINER Ot 162.3 MAL LAURA UPPER LOBE LUNG 08/06/2018 VISHNU STARKS GREEN CHAINER Ot 250.00 DIAB CHETNA WO COMPL, TYPE II OR UNSPEC TY 08/06/2018 VISHNU STARKS GREEN CHAINER Ot 272.4 HYPERLIPIDEMIA NEC/NOS 08/06/2018 VISHNU STARKS GREEN CHAINER Ot 414.00 CORON ATHEROSCLER NOS TYPE VESSEL, NATIV 08/06/2018 VISHNU STARKS GREEN CHAINER Ot 793.0 NOSP (ABN) FINDINGS ON RADIOLOGICAL [...] Ot I25. 10 ATHSCL HEART DISEASE OF [place] [place] [facility] CORONARY 08/06/2018 JAMMIE NAVA MD Ot Z51. 11 ENCOUNTER FOR ANTINEOPLASTIC CHEMOTHERAP 08/06/2018 JAMMIE NAVA MD Ot Z79.899 OTHER PENITENTIARY (CURRENT) DRUG THERAPY 08/06/2018 JAMMIE NAVA MD, [...] CCDS Ot I25.10 ATHSCL HEART DISEASE OF [place] [facility] CORONARY 08/06/2018 AKANKSHA FERRO FACC, ALI FACP CCDS Ot R00.2 PALPITATIONS 08/06/2018 AKANKSHA FERRO FACC, ALI FACP CCDS Ot R06.02 SHORTNESS OF BREATH 08/06/2018 AKANKSHA FERRO FACC, ALI FACP CCDS Ot Z87.891 PERSONAL HISTORY OF NICOTINE DEPENDENCE 08/06/2018 LISSA OATES CONCRETE [employer] [place] Ot G47.30 SLEEP APNEA, UNSPECIFIED 08/06/2018 LISSA OATES CONCRETE [employer] [place] Ot J44.9 CHRONIC OBSTRUCTIVE PULMONARY DISEASE, U 08/06/2018 LISSA OATES CONCRETE [employer] [place] Ot R06.02 SHORTNESS OF BREATH 08/06/2018 LISSA OATES CONCRETE [employer] [place] Ot Z72.0 TOBACCO USE 08/06/2018 LISSA OATES CONCRETE [employer] [place] Ot Z85.118 PERSONAL HISTORY OF MALIGNANT NEOPLASM O 08/06/2018 LISSA OATES CONCRETE [employer] [place] Ot C34.90 MALIGNANT NEOPLASM OF UNSP PART OF UNSP 08/06/2018 LISSA OATES CONCRETE [employer] [place] Ot G47.30 SLEEP APNEA, UNSPECIFIED 08/06/2018 LISSA OATES CONCRETE [employer] [place] Ot J43.9 EMPHYSEMA, UNSPECIFIED 08/06/2018 LISSA OATES CONCRETE [employer] [place] Ot K76.0 FATTY (CHANGE OF) LIVER, NOT ELSEWHERE C 08/06/2018 LISSA OATES CONCRETE [employer] [place] Ot Z72.0 TOBACCO USE 08/06/2018 AKANKSHA FERRO FACC, DELBERT FACP CCDS Ot E11.9 TYPE 2 DIABETES MELLITUS WITHOUT COMPLIC 08/06/2018 AKANKSHA FERRO FACC, ALI FACP CCDS Ot G47.33 OBSTRUCTIVE SLEEP APNEA (ADULT) (PEDIATR 08/06/2018 AKANKSHA FERRO FACC, ALI FACP CCDS Ot I25.10 ATHSCL HEART DISEASE OF [place] [facility] CORONARY 08/06/2018 AKANKSHA FERRO FACC, DELBERT FACP CCDS Ot K21.9 GASTRO-ESOPHAGEAL REFLUX DISEASE WITHOUT 08/06/2018 AKANKSHA FERRO FACC, ALI FACP CCDS Ot R00.2 PALPITATIONS 08/06/2018 AKANKSHA FERRO FACC, ALI FACP CCDS Ot Z79.82 BRANCH LEAD (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 08/06/2018 AKANKSHA FERRO FACC, ALI FACP CCDS Ot Z79.84 BRANCH LEAD (CURRENT) USE OF ORAL HYPOGLYC 08/06/2018 AKANKSHA FERRO FACC, ALI FACP CCDS Ot Z79.899 OTHER PENITENTIARY (CURRENT) DRUG THERAPY 08/06/2018 AKANKSHA FERRO FACC, [...] OF CORONARY ANGIOPLASTY IMPLANT 08/06/2018 PAMELA RAMSEY GREEN CHAINER Ot K59. 09 OTHER CONSTIPATION 08/06/2018 PAMELA RAMSEY GREEN CHAINER Ot M43.8X6 OTHER SPECIFIED DEFORMING DORSOPATHIES, 08/06/2018 PAMELA RAMSEY GREEN CHAINER Ot M47.816 SPONDYLOSIS W/O MYELOPATHY OR RADICULOPA 08/06/2018 LISSA OATES APRN Ot G47.30 SLEEP APNEA, UNSPECIFIED 08/06/2018 LISSA OATES CONCRETE [employer] [place] Ot J44.9 CHRONIC OBSTRUCTIVE PULMONARY DISEASE, U 08/06/2018 LISSA OATES APRN Ot R06.02 SHORTNESS OF BREATH 08/06/2018 LISSA OATES APRN Ot Z72.0 TOBACCO USE 08/06/2018 LISSA OATES CONCRETE BLOCK [place] Ot Z85.118 PERSONAL HISTORY OF MALIGNANT NEOPLASM O 08/06/2018 ESTEVAN FERRO, CHAPO J Ot 162.9 MAL LAURA BRONCH/LUNG NOS 08/06/2018 VISHNU STARKS GREEN CHAINER Ot 162.3 MAL LAURA UPPER LOBE LUNG 08/06/2018 VISHNU STARKS GREEN CHAINER Ot 250.00 DIAB CHETNA WO COMPL, TYPE II OR UNSPEC TY 08/06/2018 VISHNU STARKS GREEN CHAINER Ot 272.4 HYPERLIPIDEMIA NEC/NOS 08/06/2018 VISHNU STARKS GREEN CHAINER Ot 414.00 CORON ATHEROSCLER NOS TYPE VESSEL, NATIV 08/06/2018 VISHNU STARKS GREEN CHAINER Ot 793.0 NOSP (ABN) FINDINGS ON RADIOLOGICAL OT 08/06/2018 VISHNU STARKS GREEN CHAINER Ot V45.82 PERCUTANEOUS TRANSLUM CORON ANGIOPLASTY 08/06/2018 VISHNU STARKS GREEN CHAINER Ot V58.69 OT MED,LT,CURRENT USE 08/06/2018 JAMMIE NAVA MD Ot C34. 10 MALIGNANT NEOPLASM OF UPPER LOBE, UNSP B 08/06/2018 JAMMIE NAVA MD Ot E11. 9 TYPE 2 DIABETES MELLITUS WITHOUT COMPLIC 08/06/2018 JAMMIE NAVA MD, Ot E78. 5 HYPERLIPIDEMIA, UNSPECIFIED 08/06/2018 JAMMIE NAVA MD Ot I25. 10 ATHSCL HEART DISEASE OF [place] [facility] CORONARY 08/06/2018 JAMMIE NAVA MD Ot Z51. 11 ENCOUNTER FOR ANTINEOPLASTIC CHEMOTHERAP 08/06/2018 JAMMIE NAVA MD Ot Z79.899 OTHER PENITENTIARY (CURRENT) DRUG THERAPY 08/06/2018 JAMMIE NAVA MD [...] CCDS Ot I25.10 ATHSCL HEART DISEASE OF [place] [facility] CORONARY 08/06/2018 AKANKSHA FERRO FACC, DELBERT FACP CCDS Ot R00.2 PALPITATIONS 08/06/2018 AKANKSHA FERRO FACC, DELBERT FACP CCDS Ot R06.02 SHORTNESS OF BREATH 08/06/2018 AKANKSHA FERRO FACC, ALI FACP CCDS Ot Z87.891 PERSONAL HISTORY OF NICOTINE DEPENDENCE 08/06/2018 LISSA OATES CONCRETE [employer] [place] Ot G47.30 SLEEP APNEA, UNSPECIFIED 08/06/2018 LISSA OATES CONCRETE BLOCK [place] Ot J44.9 CHRONIC OBSTRUCTIVE PULMONARY DISEASE, U 08/06/2018 LISSA OATES CONCRETE BLOCK [place] Ot R06.02 SHORTNESS OF BREATH 08/06/2018 LISSA OATES CONCRETE BLOCK [place] Ot Z72.0 TOBACCO USE 08/06/2018 LISSA OATES CONCRETE BLOCK [place] Ot Z85.118 PERSONAL HISTORY OF MALIGNANT NEOPLASM O 08/06/2018 LISSA OATES CONCRETE BLOCK [place] Ot C34.90 MALIGNANT NEOPLASM OF UNSP PART OF UNSP 08/06/2018 LISSA OATES APRN Ot G47.30 SLEEP APNEA, UNSPECIFIED 08/06/2018 LISSA OATES CONCRETE BLOCK [place] Ot J43.9 EMPHYSEMA, UNSPECIFIED 08/06/2018 LISSA OATES CONCRETE BLOCK [place] Ot K76.0 FATTY (CHANGE OF) LIVER, NOT ELSEWHERE C 08/06/2018 LISSA OATES CONCRETE BLOCK [place] Ot Z72.0 TOBACCO USE 08/06/2018 AKANKSHA FERRO FACC, DELBERT FACP CCDS Ot E11.9 TYPE 2 DIABETES MELLITUS WITHOUT COMPLIC 08/06/2018 AKANKSHA FERRO FACC, ALI FACP CCDS Ot G47.33 OBSTRUCTIVE SLEEP APNEA (ADULT) (PEDIATR 08/06/2018 AKANKSHA FERRO FACC, ALI FACP CCDS Ot I25.10 ATHSCL HEART DISEASE OF [place] [facility] CORONARY 08/06/2018 AKANKSHA FERRO FACC, ALI FACP CCDS Ot K21.9 GASTRO-ESOPHAGEAL REFLUX DISEASE WITHOUT 08/06/2018 AKANKSHA FERRO FACC, ALI FACP CCDS Ot R00.2 PALPITATIONS 08/06/2018 AKANKSHA FERRO FACC, ALI FACP CCDS Ot Z79.82 BRANCH LEAD (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 08/06/2018 AKANKSHA FERRO FACC, ALI FACP CCDS Ot Z79.84 BRANCH LEAD (CURRENT) USE OF ORAL HYPOGLYC 08/06/2018 AKANKSHA FERRO FACC, ALI FACP CCDS Ot Z79.899 OTHER PENITENTIARY (CURRENT) DRUG THERAPY 08/06/2018 AKANKSHA FERRO FACC, [...] OF CORONARY ANGIOPLASTY IMPLANT 08/06/2018 PAMELA RAMSEY GREEN CHAINER Ot K59. 09 OTHER CONSTIPATION 08/06/2018 PAMELA RAMSEY GREEN CHAINER Ot M43.8X6 OTHER SPECIFIED DEFORMING DORSOPATHIES, 08/06/2018 PAMELA RAMSEY GREEN CHAINER Ot M47.816 SPONDYLOSIS W/O MYELOPATHY OR RADICULOPA 08/14/2018 PAMELA RAMSEY GREEN CHAINER Ot M47.816 SPONDYLOSIS W/O MYELOPATHY OR RADICULOPA 08/14/2018 PAMELA RAMSEY GREEN CHAINER Ot M48. 07 SPINAL STENOSIS, LUMBOSACRAL REGION 08/14/2018 PAMELA RAMSEY GREEN CHAINER Ot 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, 08/15/2018 LISSA OATES APRN Ot G47.30 SLEEP APNEA, UNSPECIFIED 08/15/2018 LISSA OATES APRN Ot J44.9 CHRONIC OBSTRUCTIVE PULMONARY DISEASE, U 08/15/2018 LISSA OATES APRN Ot R06.02 SHORTNESS OF BREATH 08/15/2018 LISSA OATES APRN Ot Z72.0 TOBACCO USE 08/15/2018 LISSA OATES APRN Ot Z85.118 PERSONAL HISTORY OF MALIGNANT NEOPLASM O 08/20/2018 PAMELA RAMSEY GREEN CHAINER Ot M47.816 SPONDYLOSIS W/O MYELOPATHY OR RADICULOPA 08/20/2018 PAMELA RAMSEY GREEN CHAINER Ot M48. 07 SPINAL STENOSIS, LUMBOSACRAL REGION 08/20/2018 PAMELA RAMSEY GREEN CHAINER Ot 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, 11/28/2018 PAMELA RAMSEY GREEN CHAINER Ot M25.461 EFFUSION, RIGHT KNEE 11/28/2018 ANAYELI KIRKPATRICK CONCRETE BLOCK [place] Ot M54. 5 LOW BACK PAIN 01/08/2019 [...] CCDS Ot I25.10 ATHSCL HEART DISEASE OF [place] [facility] CORONARY 01/08/2019 AKANKSHA FERRO FACC, DELBERT FACP [...] FERRO FACC, DELBERT FACP CCDS Ot Z79.82 BRANCH LEAD (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 01/08/2019 AKANKSHA FERRO FACC, DELBERT FACP CCDS Ot Z79.84 PENITENTIARY (CURRENT) USE OF ORAL HYPOGLYC 01/08/2019 AKANKSHA FERRO FACC, DELBERT FACP CCDS Ot Z85.118 PERSONAL HISTORY OF MALIGNANT NEOPLASM O 01/08/2019 AKANKSHA FERRO FACC, DELBERT FACP CCDS Ot Z86.73 PRSNL HX OF TIA (TIA), AND CEREB INFRC W 01/08/2019 AKANKSHA FERRO FACC, ALI FACP CCDS Ot Z88.8 ALLERGY STATUS TO OTH DRUG/MEDS/BIOL SUB 01/08/2019 KAANKSHA FERRO FACC, DELBERT FACP CCDS Ot Z95.1 [...] CCDS Ot I25.10 ATHSCL HEART DISEASE OF [place] [facility] CORONARY 01/14/2019 AKANKSHA FERRO FACC, ALI FACP CCDS Ot J30.1 ALLERGIC RHINITIS DUE TO POLLEN 01/14/2019 AKANKSHA FERRO FACC, ALI FACP CCDS Ot J44.9 CHRONIC OBSTRUCTIVE PULMONARY DISEASE, U 01/14/2019 AKANKSHA FERRO FACC, ALI FACP CCDS Ot K21.9 GASTRO-ESOPHAGEAL REFLUX DISEASE WITHOUT 01/14/2019 AKANKSHA FERRO FACC, ALI FACP CCDS Ot R06.09 OTHER FORMS OF DYSPNEA 01/14/2019 AKANKSHA EFRRO FACC, ALI FACP CCDS Ot Z79.82 BRANCH LEAD (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 01/14/2019 AKANKSHA FERRO FACC, ALI FACP CCDS Ot Z79.84 BRANCH LEAD (CURRENT) USE OF ORAL HYPOGLYC 01/14/2019 AKANKSHA [...] MAL LAURA BRONCH/LUNG NOS 02/21/2019 VISHNU STARKS GREEN CHAINER Ot 162.3 MAL LAURA UPPER LOBE LUNG 02/21/2019 VISHNU STARKS GREEN CHAINER Ot 250.00 DIAB CHETNA WO COMPL, TYPE II OR UNSPEC TY 02/21/2019 VISHNU STARKS GREEN CHAINER Ot 272.4 HYPERLIPIDEMIA NEC/NOS 02/21/2019 VISHNU STARKS GREEN CHAINER Ot 414.00 CORON ATHEROSCLER NOS TYPE VESSEL, NATIV 02/21/2019 VISHNU STARKS GREEN CHAINER Ot 793.0 NOSP (ABN) FINDINGS ON RADIOLOGICAL OT 02/21/2019 VISHNU STARKS GREEN CHAINER Ot V45.82 PERCUTANEOUS TRANSLUM CORON ANGIOPLASTY 02/21/2019 VISHNU STARKS GREEN CHAINER Ot V58.69 OTH MED,LT,CURRENT USE 02/21/2019 JAMMIE NAVA MD Ot C34. 10 MALIGNANT NEOPLASM OF UPPER LOBE, UNSP B 02/21/2019 JAMMIE NAVA MD Ot E11. 9 TYPE 2 DIABETES MELLITUS WITHOUT COMPLIC 02/21/2019 JAMMIE NAVA MD Ot E78. 5 HYPERLIPIDEMIA, UNSPECIFIED 02/21/2019 JAMMIE NAVA MD Ot I25. 10 ATHSCL HEART DISEASE OF [place] [facility] CORONARY 02/21/2019 JAMMIE NAVA MD Ot Z51. 11 ENCOUNTER FOR ANTINEOPLASTIC CHEMOTHERAP 02/21/2019 JAMMIE NAVA MD Ot Z79.899 OTHER PENITENTIARY (CURRENT) DRUG THERAPY 02/21/2019 JAMMIE NAVA MD Ot Z98. 61 CORONARY ANGIOPLASTY STATUS 02/21/2019 AKANKSHA FERRO FACC, DELBERT FACP CCDS Ot C34.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, LEFT B 02/21/2019 AKANKSHA FERRO FACC, ALI FACP CCDS Ot E13.9 OTHER SPECIFIED DIABETES MELLITUS WITHOU 02/21/2019 AKANKHSA FERRO FACC, ALI FACP CCDS Ot E78.4 OTHER HYPERLIPIDEMIA 02/21/2019 AKANKSHA FERRO FACC, ALI FACP CCDS Ot I25.10 ATHSCL HEART DISEASE OF [place] [place] [facility] CORONARY 02/21/2019 AKANKSHA FERRO FACC, ALI FACP CCDS Ot R00.2 PALPITATIONS 02/21/2019 AKANKSHA FERRO FACC, ALI FACP CCDS Ot R06.02 SHORTNESS OF BREATH 02/21/2019 AKANKSHA FERRO FACC, ALI FACP CCDS Ot Z87.891 PERSONAL HISTORY OF NICOTINE DEPENDENCE 02/21/2019 LISSA OATES APRN Ot G47.30 SLEEP APNEA, UNSPECIFIED 02/21/2019 LISSA OATES APRN Ot J44.9 CHRONIC OBSTRUCTIVE PULMONARY DISEASE, U 02/21/2019 LASHON, LISSA E CONCRETE BLOCK [place] Ot R06.02 SHORTNESS OF BREATH 02/21/2019 LISSA OATES CONCRETE [employer] [place] Ot Z72.0 TOBACCO USE 02/21/2019 LISSA OATES CONCRETE BLOCK [place] Ot Z85.118 PERSONAL HISTORY OF MALIGNANT NEOPLASM O 02/21/2019 LISSA OATES CONCRETE [employer] [place] Ot C34.90 MALIGNANT NEOPLASM OF UNSP PART OF UNSP 02/21/2019 LISSA OATES CONCRETE [employer] [place] Ot G47.30 SLEEP APNEA, UNSPECIFIED 02/21/2019 LISSA OATES CONCRETE [employer] [place] Ot J43.9 EMPHYSEMA, UNSPECIFIED 02/21/2019 LISSA OATES CONCRETE [employer] [place] Ot K76.0 FATTY (CHANGE OF) LIVER, NOT ELSEWHERE C 02/21/2019 LISSA OATES CONCRETE BLOCK [place] Ot Z72.0 TOBACCO USE 02/21/2019 AKANKSHA FERRO FACC, DELBERT FACP CCDS Ot E11.9 TYPE 2 DIABETES MELLITUS WITHOUT COMPLIC 02/21/2019 AKANKSHA FERRO FACC, DELBERT FACP CCDS Ot G47.33 OBSTRUCTIVE SLEEP APNEA (ADULT) (PEDIATR 02/21/2019 AKANKSHA FERRO FACC, ALI FACP CCDS Ot I25.10 ATHSCL HEART DISEASE OF [place] [place] [facility] CORONARY 02/21/2019 AKANKSHA FERRO FACC, DELBERT FACP CCDS Ot K21.9 GASTRO-ESOPHAGEAL REFLUX DISEASE WITHOUT 02/21/2019 AKANKSHA FERRO FACC, DELBERT FACP CCDS Ot R00.2 PALPITATIONS 02/21/2019 AKANKSHA FERRO FACC, DELBERT FACP CCDS Ot Z79.82 PENITENTIARY (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 02/21/2019 AKANKSHA FERRO FACC, DELBERT FACP CCDS Ot Z79.84 PENITENTIARY (CURRENT) USE OF ORAL HYPOGLYC 02/21/2019 AKANKSHA FERRO FACC, DELBERT FACP CCDS Ot Z79.899 OTHER PENITENTIARY (CURRENT) DRUG THERAPY 02/21/2019 AKANKSHA FEROR FACC, DELBERT FACP CCDS Ot Z82.49 FAMILY HX OF ISCHEM HEART DIS AND OTH DI 02/21/2019 AKANKSHA FERRO FACC ALI FACP CCDS Ot Z85.118 PERSONAL HISTORY OF MALIGNANT NEOPLASM O 02/21/2019 AKANKSHA FERRO FACC, DELBERT FACP CCDS Ot Z86.73 PRSNL HX OF TIA (TIA), AND CEREB INFRC W 02/21/2019 AKANKSHA CHAMBERSC, [facility] CCDS Ot Z87.891 PERSONAL HISTORY OF NICOTINE DEPENDENCE 02/21/2019 AKANKSHA FERRO [facility], [facility] CCDS Ot Z95.5 PRESENCE OF CORONARY ANGIOPLASTY IMPLANT 02/21/2019 BRAULIO PAMELA GREEN CHAINER Ot K59. 09 OTHER CONSTIPATION 02/21/2019 BRAULIO PAMELA GREEN CHAINER Ot M43.8X6 OTHER SPECIFIED DEFORMING DORSOPATHIES, 02/21/2019 BRAULIOKAYLIET GREEN CHAINER Ot M47.816 SPONDYLOSIS W/O MYELOPATHY OR RADICULOPA 02/21/2019 BRAULIO PAMELA GREEN CHAINER Ot M47.816 SPONDYLOSIS W/O MYELOPATHY OR RADICULOPA 02/21/2019 BRAULIOKAYLIET GREEN CHAINER Ot M48. 07 SPINAL STENOSIS, LUMBOSACRAL REGION 02/21/2019 BRAULIOKAYLIET GREEN CHAINER Ot 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, 03/06/2019 AKANKSHA FERRO [facility], [facility] CCDS Ot Z95.828 PRESENCE OF OTHER VASCULAR IMPLANTS AND 04/30/2019 ESTEVAN FERRO, CHAPO J Ot 162.9 MAL LAURA BRONCH/LUNG NOS 04/30/2019 VISHNU STARKS GREEN CHAINER Ot 162.3 MAL LAURA UPPER LOBE LUNG 04/30/2019 VISHNU STARKS S GREEN CHAINER Ot 250.00 DIAB CHETNA WO COMPL, TYPE II OR UNSPEC TY 04/30/2019 VISHNU STARKS S GREEN CHAINER Ot 272.4 HYPERLIPIDEMIA NEC/NOS 04/30/2019 VISHNU STARKS S GREEN CHAINER Ot 414.00 CORON ATHEROSCLER NOS TYPE VESSEL, NATIV 04/30/2019 VISHNU STARKS S GREEN CHAINER Ot 793.0 NOSP (ABN) FINDINGS ON RADIOLOGICAL OT 04/30/2019 VISHNU STARKS S GREEN CHAINER Ot V45.82 PERCUTANEOUS TRANSLUM CORON ANGIOPLASTY 04/30/2019 VISHNU STARKS S GREEN CHAINER Ot V58.69 OTH MED,LT,CURRENT USE 04/30/2019 BRANDY FERRO, JAMMIE Ot C34. 10 MALIGNANT NEOPLASM OF UPPER LOBE, UNSP B 04/30/2019 BRANDY FERRO, JAMMIE Ot E11. 9 TYPE 2 DIABETES MELLITUS WITHOUT COMPLIC 04/30/2019 JAMMIE NAVA MD Ot E78. 5 HYPERLIPIDEMIA, UNSPECIFIED 04/30/2019 XUN MD, CHAU-RJ Ot I25. 10 ATHSCL HEART DISEASE OF [place] CORONARY 04/30/2019 JAMMIE NAVA MD Ot Z51. 11 ENCOUNTER FOR ANTINEOPLASTIC CHEMOTHERAP 04/30/2019 JAMMIE NAVA MD Ot Z79.899 OTHER PENITENTIARY (CURRENT) DRUG THERAPY 04/30/2019 JAMMIE NAVA MD Ot Z98. 61 CORONARY ANGIOPLASTY STATUS 04/30/2019 AKANKSHA FERRO FAC, ALI FACP CCDS Ot C34.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, LEFT B 04/30/2019 AKANKSHA FERRO FAC, ALI FACP CCDS Ot E13.9 OTHER SPECIFIED DIABETES MELLITUS WITHOU 04/30/2019 AKANKSHA FERRO FACC, ALI FACP CCDS Ot E78.4 OTHER HYPERLIPIDEMIA 04/30/2019 AKANKSHA FERRO [facility], ALI FACP CCDS Ot I25.10 ATHSCL HEART DISEASE OF [place] CORONARY 04/30/2019 AKANKSHA FERRO FAC, ALI FACP CCDS Ot R00.2 PALPITATIONS 04/30/2019 AKANKSHA FERRO [facility], ALI [facility] CCDS Ot R06.02 SHORTNESS OF BREATH 04/30/2019 AKANKSHA FERRO [facility], [facility]I [facility] CCDS Ot Z87.891 PERSONAL HISTORY OF NICOTINE DEPENDENCE 04/30/2019 LISSA OATES [employer]CRETE [employer] [place] Ot G47.30 SLEEP APNEA, UNSPECIFIED 04/30/2019 LISSA OATES [employer]CR[employer] [place] Ot J44.9 CHRONIC OBSTRUCTIVE PULMONARY DISEASE, U 04/30/2019 LISSA OATES [employer]CR[employer]E [employer] [place] Ot R06.02 SHORTNESS OF BREATH 04/30/2019 LISSA OATES [employer]CR[employer]E [employer] [place] Ot Z72.0 TOBACCO USE 04/30/2019 LISSA OATES [employer]CR[employer]E [employer] [place] Ot Z85.118 PERSONAL HISTORY OF MALIGNANT NEOPLASM O 04/30/2019 LISSA OATES [employer]CR[employer]E [employer] [place] Ot C34.90 MALIGNANT NEOPLASM OF UNSP PART OF UNSP 04/30/2019 LISSA OATES [employer]CR[employer]E [employer] [place] Ot G47.30 SLEEP APNEA, UNSPECIFIED 04/30/2019 LISSA OATES [employer]CR[employer]E [employer] [place] Ot J43.9 EMPHYSEMA, UNSPECIFIED 04/30/2019 LISSA OATES [employer]CR[employer]E [employer] [place] Ot K76.0 FATTY (CHANGE OF) LIVER, NOT ELSEWHERE C 04/30/2019 LISSA OATES [employer]CR[employer]E [employer] [place] Ot Z72.0 TOBACCO USE 04/30/2019 AKANKSHA CHAMBERS, DELBERT FACP CCDS Ot E11.9 TYPE 2 DIABETES MELLITUS WITHOUT COMPLIC 04/30/2019 AKANKSHA FERRO FACC, ALI FACP CCDS Ot G47.33 OBSTRUCTIVE SLEEP APNEA (ADULT) (PEDIATR 04/30/2019 AKANKSHA FERRO [facility], ALI F[facility] CCDS Ot I25.10 ATHSCL HEART DISEASE OF [place] CORONARY 04/30/2019 AKANKSHA FERRO FACC, DELBERT FACP CCDS Ot K21.9 GASTRO-ESOPHAGEAL REFLUX DISEASE WITHOUT 04/30/2019 AKANKSHA FERRO [facility], ALI FACP CCDS Ot R00.2 PALPITATIONS 04/30/2019 AKANKSHA FERRO [facility], ALI [facility] CCDS Ot Z79.82 PENITENTIARY (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 04/30/2019 AKANKSHA CHAMBERS, DELBERT FACP CCDS Ot Z79.84 PENITENTIARY (CURRENT) USE OF ORAL HYPOGLYC 04/30/2019 AKANKSHA CHAMBERS, ALI FACP CCDS Ot Z79.899 OTHER BRANCH LEAD (CURRENT) DRUG THERAPY 04/30/2019 AKANKSHA CHAMBERS, DELBERT FACP CCDS Ot Z82.49 FAMILY HX OF ISCHEM HEART DIS AND OTH DI 04/30/2019 AKANKSHA FERRO [facility], ALI FACP CCDS Ot Z85.118 PERSONAL HISTORY OF MALIGNANT NEOPLASM O 04/30/2019 AKANKSHA CHAMBERS, ALI FACP CCDS Ot Z86.73 PRSNL HX OF TIA (TIA), AND CEREB INFRC W 04/30/2019 AKANKSHA FERRO [facility], ALI F[facility] CCDS Ot Z87.891 PERSONAL HISTORY [...] SPINAL STENOSIS, LUMBOSACRAL REGION 04/30/2019 PAMELA RAMSEY GREEN CHAINER Ot 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, 04/30/2019 AKANKSHA FERRO [facility] CCDS Ot Z95.828 PRESENCE OF OTHER VASCULAR IMPLANTS AND 04/30/2019 AKANKSHA FERRO [facility] CCDS Ot Z95.828 PRESENCE OF OTHER VASCULAR IMPLANTS AND 05/01/2019 LISSA OATES APRN Ot G47.30 SLEEP APNEA, UNSPECIFIED 05/01/2019 LISSA OATES APRN Ot J44.9 CHRONIC OBSTRUCTIVE PULMONARY DISEASE, U 05/01/2019 LISSA OATES [employer]CR[employer] [place] Ot R59.0 LOCALIZED ENLARGED LYMPH NODES 05/01/2019 LISSA OATES [employer]E [employer] [place] Ot Z72.0 TOBACCO USE 05/01/2019 LISSA OATES [employer]CR[employer]E [employer] [place] Ot Z85.118 PERSONAL HISTORY OF MALIGNANT NEOPLASM O 05/07/2019 AKANKSHA FERRO [facility] CCDS Ot Z95.828 PRESENCE OF OTHER VASCULAR IMPLANTS AND 06/02/2019 ESTEVAN FERRO, CHAPO J Ot 162.9 MAL LAURA BRONCH/LUNG NOS 06/02/2019 TEREZA HILLOUISE S GREEN CHAINER Ot 162.3 MAL LAURA UPPER LOBE LUNG 06/02/2019 TEREZA HILAH S GREEN CHAINER Ot 250.00 DIAB CHETNA WO COMPL, TYPE II OR UNSPEC TY 06/02/2019 TEREZA HILAH S GREEN CHAINER Ot 272.4 HYPERLIPIDEMIA NEC/NOS 06/02/2019 TEREZA HILAH S GREEN CHAINER Ot 414.00 CORON ATHEROSCLER NOS TYPE VESSEL, NATIV 06/02/2019 TEREZA HILAH S GREEN CHAINER Ot 793.0 NOSP (ABN) FINDINGS ON RADIOLOGICAL OT 06/02/2019 VISHNU STARKS S GREEN CHAINER Ot V45.82 PERCUTANEOUS TRANSLUM CORON ANGIOPLASTY 06/02/2019 VISHNU STARKS S GREEN CHAINER Ot V58.69 OTH MED,LT,CURRENT USE 06/02/2019 JAMMIE NAVA MD Ot C34. 10 MALIGNANT NEOPLASM OF UPPER LOBE, UNSP B 06/02/2019 JAMMIE NAVA MD Ot E11. 9 TYPE 2 DIABETES MELLITUS WITHOUT COMPLIC 06/02/2019 JAMMIE NAVA MD Ot E78. 5 HYPERLIPIDEMIA, UNSPECIFIED 06/02/2019 JAMMIE NAVA MD Ot I25. 10 ATHSCL HEART DISEASE OF [place] CORONARY 06/02/2019 JAMMIE NAVA MD Ot Z51. 11 ENCOUNTER FOR ANTINEOPLASTIC CHEMOTHERAP 06/02/2019 JAMMIE NAVA MD Ot Z79.899 OTHER PENITENTIARY (CURRENT) DRUG THERAPY 06/02/2019 JAMMIE NAVA MD [...] CCDS Ot I25.10 ATHSCL HEART DISEASE OF [place] CORONARY 06/02/2019 AKANKSHA FERRO FAC, ALI FACP CCDS Ot R00.2 PALPITATIONS 06/02/2019 AKANKSHA FERRO FAC, ALI FACP CCDS Ot R06.02 SHORTNESS OF BREATH 06/02/2019 AKANKSHA FERRO FAC, ALI FACP CCDS Ot Z87.891 PERSONAL HISTORY OF NICOTINE DEPENDENCE 06/02/2019 LISSA OATES CONCRETE BLOCK [place] Ot G47.30 SLEEP APNEA, UNSPECIFIED 06/02/2019 LISSA OATES CONCRETE [employer] [place] Ot J44.9 CHRONIC OBSTRUCTIVE PULMONARY DISEASE, U 06/02/2019 LISSA OATES CONCRETE [employer] [place] Ot R06.02 SHORTNESS OF BREATH 06/02/2019 LISSA OATES CONCRETE [employer] [place] Ot Z72.0 TOBACCO USE 06/02/2019 LISSA OATES CONCRETE [employer] [place] Ot Z85.118 PERSONAL HISTORY OF MALIGNANT NEOPLASM O 06/02/2019 LISSA OATES CONCRETE BLOCK [place] Ot C34.90 MALIGNANT NEOPLASM OF UNSP PART OF UNSP 06/02/2019 LISSA OATES CONCRETE BLOCK [place] Ot G47.30 SLEEP APNEA, UNSPECIFIED 06/02/2019 LISSA OATES CONCRETE [employer] [place] Ot J43.9 EMPHYSEMA, UNSPECIFIED 06/02/2019 LISSA OATES CONCRETE [employer] [place] Ot K76.0 FATTY (CHANGE OF) LIVER, NOT ELSEWHERE C 06/02/2019 LISSA OATES CONCRETE [employer] [place] Ot Z72.0 TOBACCO USE 06/02/2019 AKANKSHA FERRO FACC, DELBERT FACP CCDS Ot E11.9 TYPE 2 DIABETES MELLITUS WITHOUT COMPLIC 06/02/2019 AKANKSHA FERRO FACC, ALI FACP CCDS Ot G47.33 OBSTRUCTIVE SLEEP APNEA (ADULT) (PEDIATR 06/02/2019 AKANKSHA FERRO FACC, ALI FACP CCDS Ot I25.10 ATHSCL HEART DISEASE OF [place] CORONARY 06/02/2019 AKANKSHA FERRO FACC, ALI FACP CCDS Ot K21.9 GASTRO-ESOPHAGEAL REFLUX DISEASE WITHOUT 06/02/2019 AKANKSHA FERRO FACC, ALI FACP CCDS Ot R00.2 PALPITATIONS 06/02/2019 AKANKSHA FERRO FACC, ALI FACP CCDS Ot Z79.82 BRANCH LEAD (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 06/02/2019 AKANKSHA FERRO FACC, ALI FACP CCDS Ot Z79.84 BRANCH LEAD (CURRENT) USE OF ORAL HYPOGLYC 06/02/2019 AKANKSHA FERRO FACC, ALI FACP CCDS Ot Z79.899 OTHER PENITENTIARY (CURRENT) DRUG THERAPY 06/02/2019 AKANKSHA FERRO FACC, [...] OF MALIGNANT NEOPLASM O 06/11/2019 AKANKSHA FERRO [facility], ALI FACP CCDS Ot E11.9 TYPE 2 DIABETES MELLITUS WITHOUT COMPLIC 06/11/2019 AKANKSHA FERRO [facility], ALI FACP CCDS Ot I25.10 ATHSCL HEART DISEASE OF [place] CORONARY 06/11/2019 AKANKSHA FERRO [facility], ALI FACP CCDS Ot I34.0 NONRHEUMATIC MITRAL (VALVE) INSUFFICIENC 06/11/2019 AKANKSHA FERRO [facility], ALI FACP CCDS Ot I77.89 OTHER SPECIFIED DISORDERS OF ARTERIES AN 06/11/2019 AKANKSHA FERRO [facility], ALI FACP CCDS Ot Z86.73 PRSNL HX OF TIA (TIA), AND CEREB INFRC W 06/11/2019 AKANKSHA FERRO [facility], ALI FACP CCDS Ot Z87.891 PERSONAL HISTORY OF NICOTINE DEPENDENCE 06/16/2019 AKANKSHA FERRO [facility], ALI FACP CCDS Ot E11.9 TYPE 2 DIABETES MELLITUS WITHOUT COMPLIC 06/16/2019 AKANKSHA FERRO [facility], ALI F[facility] CCDS Ot I25.10 ATHSCL HEART DISEASE OF [place] CORONARY 06/16/2019 AKANKSHA FERRO [facility], ALI FACP CCDS Ot I34.0 NONRHEUMATIC MITRAL (VALVE) INSUFFICIENC 06/16/2019 AKANKSHA FERRO [facility], ALI FACP CCDS Ot I77.89 OTHER SPECIFIED DISORDERS OF ARTERIES AN 06/16/2019 AKANKSHA FERRO [facility], ALI FACP CCDS Ot Z86.73 PRSNL HX OF TIA (TIA), AND CEREB INFRC W 06/16/2019 AKANKSHA FERRO [facility], ALI FACP CCDS Ot Z87.891 PERSONAL HISTORY OF NICOTINE DEPENDENCE 07/02/2019 LISSA OATES APRN Ot G47.30 SLEEP APNEA, UNSPECIFIED 07/02/2019 LISSA OATES CONCRETE [employer] [place] Ot J44.9 CHRONIC OBSTRUCTIVE PULMONARY DISEASE, U 07/02/2019 LISSA OATES CONCRETE [employer] [place] Ot R59.0 LOCALIZED ENLARGED LYMPH NODES 07/02/2019 LISSA OATES CONCRETE [employer] [place] Ot Z72.0 TOBACCO USE 07/02/2019 LISSA OATES CONCRETE BLOCK [place] Ot Z85.118 PERSONAL HISTORY OF MALIGNANT NEOPLASM O 10/08/2019 CHAPO BARRETO MD Ot C34.30 MALIGNANT NEOPLASM OF LOWER LOBE, [facility] B 10/08/2019 CHAPO BARRETO MD Ot J43.2 CENTRILOBULAR EMPHYSEMA 10/08/2019 CHAPO BARRETO MD, Ot K86.9 DISEASE OF PANCREAS, UNSPECIFIED 11/04/2019 CHAPO BARRETO MD Ot C34.30 MALIGNANT NEOPLASM OF LOWER LOBE, [facility] B 11/04/2019 CHAPO BARRETO MD, Ot J43.2 CENTRILOBULAR EMPHYSEMA 11/04/2019 CHAPO BARRETO MD Ot K86.9 DISEASE OF PANCREAS, UNSPECIFIED 11/11/2019 CHAPO BARRETO MD Ot C34.30 MALIGNANT NEOPLASM OF LOWER LOBE, [facility] B 11/11/2019 CHAPO BARRETO MD Ot J43.2 CENTRILOBULAR EMPHYSEMA 11/11/2019 CHAPO BARRETO MD Ot K86.9 DISEASE OF PANCREAS, UNSPECIFIED 11/11/2019 CAHPO BARRETO MD Ot 162.9 MAL LAURA BRONCH/LUNG NOS 11/11/2019 VISHNU STARKS GREEN CHAINER Ot 162.3 MAL LAURA UPPER LOBE LUNG 11/11/2019 VISHNU STARKS GREEN CHAINER Ot 250.00 DIAB CHETNA WO COMPL, TYPE II OR UNSPEC TY 11/11/2019 VISHNU STARKS GREEN CHAINER Ot 272.4 HYPERLIPIDEMIA NEC/NOS 11/11/2019 VISHNU STARKS GREEN CHAINER Ot 414.00 CORON ATHEROSCLER NOS TYPE VESSEL, NATIV 11/11/2019 VISHNU STARKS GREEN CHAINER Ot 793.0 NOSP (ABN) FINDINGS ON RADIOLOGICAL OT 11/11/2019 VISHNU STARKS GREEN CHAINER Ot V45.82 PERCUTANEOUS TRANSLUM CORON ANGIOPLASTY 11/11/2019 VISHNU STARKS GREEN CHAINER Ot V58.69 OT MED,LT,CURRENT USE 11/11/2019 JAMMIE NAVA MD Ot C34. 10 MALIGNANT NEOPLASM OF UPPER LOBE, UNSP B 11/11/2019 JAMMIE NAVA MD Ot E11. 9 TYPE 2 DIABETES MELLITUS WITHOUT COMPLIC 11/11/2019 JAMMIE NAVA MD Ot E78. 5 HYPERLIPIDEMIA, UNSPECIFIED 11/11/2019 JAMMIE NAVA MD Ot I25. 10 ATHSCL HEART DISEASE OF [place] CORONARY 11/11/2019 JAMMIE NAVA MD Ot Z51. 11 ENCOUNTER FOR ANTINEOPLASTIC CHEMOTHERAP 11/11/2019 JAMMIE NAVA MD Ot Z79.899 OTHER PENITENTIARY (CURRENT) DRUG THERAPY 11/11/2019 JAMMIE NAVA MD [...] CCDS Ot I25.10 ATHSCL HEART DISEASE OF [place] CORONARY 11/11/2019 AKANKSHA FERRO FACC, ALI FACP CCDS Ot R00.2 PALPITATIONS 11/11/2019 AKANKSHA FERRO FACC, ALI FACP CCDS Ot R06.02 SHORTNESS OF BREATH 11/11/2019 AKANKSHA FERRO FACC, ALI FACP CCDS Ot Z87.891 PERSONAL HISTORY OF NICOTINE DEPENDENCE 11/11/2019 LISSA OATES CONCRETE [employer] [place] Ot G47.30 SLEEP APNEA, UNSPECIFIED 11/11/2019 LISSA OATES CONCRETE [employer] [place] Ot J44.9 CHRONIC OBSTRUCTIVE PULMONARY DISEASE, U 11/11/2019 LISSA OATES CONCRETE [employer] [place] Ot R06.02 SHORTNESS OF BREATH 11/11/2019 LISSA OATES CONCRETE [employer] [place] Ot Z72.0 TOBACCO USE 11/11/2019 LISSA OATSE CONCRETE BLOCK [place] Ot Z85.118 PERSONAL HISTORY OF MALIGNANT NEOPLASM O 11/11/2019 LISSA OATES CONCRETE [employer] [place] Ot C34.90 MALIGNANT NEOPLASM OF UNSP PART OF UNSP 11/11/2019 LISSA OATES CONCRETE [employer] [place] Ot G47.30 SLEEP APNEA, UNSPECIFIED 11/11/2019 LISSA OATES APRN Ot J43.9 EMPHYSEMA, UNSPECIFIED 11/11/2019 LISSA OATES APRN Ot K76.0 FATTY (CHANGE OF) LIVER, NOT ELSEWHERE C 11/11/2019 LISSA OATES APRN Ot Z72.0 TOBACCO USE 11/11/2019 AKANKSHA FERRO [facility], ALI FACP CCDS Ot E11.9 TYPE 2 DIABETES MELLITUS WITHOUT COMPLIC 11/11/2019 AKANKSHA FERRO [facility], ALI FACP CCDS Ot G47.33 OBSTRUCTIVE SLEEP APNEA (ADULT) (PEDIATR 11/11/2019 AKANKSHA FERRO [facility], ALI FACP CCDS Ot I25.10 ATHSCL HEART DISEASE OF [place] CORONARY 11/11/2019 AKANKSHA FERRO [facility], ALI [facility] CCDS Ot K21.9 GASTRO-ESOPHAGEAL REFLUX DISEASE WITHOUT 11/11/2019 AKANKSHA CHAMBERS, ALI FACP CCDS Ot R00.2 PALPITATIONS 11/11/2019 AKANKSHA CHAMBERS, ALI FACP CCDS Ot Z79.82 BRANCH LEAD (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 11/11/2019 AKANKSHA CHAMBERS, ALI FACP CCDS Ot Z79.84 BRANCH LEAD (CURRENT) USE OF ORAL HYPOGLYC 11/11/2019 AKANKSHA FERRO [facility], ALI FACP CCDS Ot Z79.899 OTHER PENITENTIARY (CURRENT) DRUG THERAPY 11/11/2019 AKANKSHA FERRO [facility], ALI FACP CCDS Ot Z82.49 FAMILY HX OF ISCHEM HEART DIS AND OTH DI 11/11/2019 AKANKSHA CHAMBERS, ALI FACP CCDS Ot Z85.118 PERSONAL HISTORY OF MALIGNANT NEOPLASM O 11/11/2019 AKANKSHA CHAMBERS, ALI FACP CCDS Ot Z86.73 PRSNL HX OF TIA (TIA), AND CEREB INFRC W 11/11/2019 AKANKSHA FERRO [facility], ALI FACP CCDS Ot Z87.891 PERSONAL HISTORY OF NICOTINE DEPENDENCE 11/11/2019 AKANKSHA CHAMBERS, ALI FACP CCDS Ot Z95.5 PRESENCE OF CORONARY ANGIOPLASTY IMPLANT 11/11/2019 PAMELA RAMSEY Ot K59. 09 OTHER CONSTIPATION 11/11/2019 PAMELA RAMSEYP Ot M43.8X6 OTHER SPECIFIED DEFORMING DORSOPATHIES, 11/11/2019 PAMELA RAMSEY GREEN CHAINER Ot M47.816 SPONDYLOSIS W/O MYELOPATHY OR RADICULOPA 11/11/2019 PAMELA RAMSEY GREEN CHAINER Ot M47.816 SPONDYLOSIS W/O MYELOPATHY OR RADICULOPA 11/11/2019 KAYLIE RAMSEYT GREEN CHAINER Ot M48. 07 SPINAL STENOSIS, LUMBOSACRAL REGION 11/11/2019 KAYLIE RAMSEYT GREEN CHAINER Ot 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, 11/11/2019 LISSA OATES CONCRETE BLOCK [place] Ot G47.30 SLEEP APNEA, UNSPECIFIED 11/11/2019 LISSA OATES CONCRETE [employer] [place] Ot J44.9 CHRONIC OBSTRUCTIVE PULMONARY DISEASE, U 11/11/2019 LISSA OATES CONCRETE [employer] [place] Ot R59.0 LOCALIZED ENLARGED LYMPH NODES 11/11/2019 LISSA OATES CONCRETE BLOCK [place] Ot Z72.0 TOBACCO USE 11/11/2019 LISSA OATES CONCRETE BLOCK [place] Ot Z85.118 PERSONAL HISTORY OF MALIGNANT NEOPLASM O 11/11/2019 AKNAKSHA FERRO FAC, ALI FACP CCDS Ot E11.9 TYPE 2 DIABETES MELLITUS WITHOUT COMPLIC 11/11/2019 AKANKSHA FERRO [facility], ALI FACP CCDS Ot I25.10 ATHSCL HEART DISEASE OF [place] CORONARY 11/11/2019 AKANKSHA FERRO [facility], ALI FACP CCDS Ot I34.0 NONRHEUMATIC MITRAL (VALVE) INSUFFICIENC 11/11/2019 AKANKSHA FERRO [facility], ALI FACP CCDS Ot I77.89 OTHER SPECIFIED DISORDERS OF ARTERIES AN 11/11/2019 AKANKSHA FERRO FAC, ALI FACP CCDS Ot Z86.73 PRSNL HX OF TIA (TIA), AND CEREB INFRC W 11/11/2019 AKANKSHA FERRO [facility], ALI FACP CCDS Ot Z87.891 PERSONAL HISTORY OF NICOTINE DEPENDENCE 11/11/2019 AKANKSHA FERRO [facility], ALI FACP CCDS Ot I25.10 ATHSCL HEART DISEASE OF [place] CORONARY 11/11/2019 AKANKSHA CHAMBERS, ALI FACP CCDS [...] MD, Ot I25.10 ATHSCL HEART DISEASE OF [place] CORONARY 11/11/2019 SRAVAN LOVE MD, Ot J43 [...] COMM 11/11/2019 SRAVAN LOVE MD, Ot Z79.82 BRANCH LEAD (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 11/11/2019 SRAVAN LOVE MD, Ot Z79.84 PENITENTIARY (CURRENT) USE OF ORAL HYPOGLYC 11/11/2019 SRAVAN LOVE MD, Ot Z79.899 OTHER BRANCH LEAD (CURRENT) DRUG THERAPY 11/11/2019 SRAVAN LOVE MD, [...] Code Description [place] [address] XRAY CHEST 2 VIEW 05/24/2012 Cardiolog Bradly Begum 05/24/2012 18558 ROUT INE VENIPUNCTURE 06/05/2012 67267 A1C (IN-HOUSE) 06/05/2012 29665 CBC 06/05/2012 19777 LIVE R PANEL (LFT) 06/05/2012 16273 CMP 06/05/2012 4884391 GF R CALC (RESULT ONLY) 06/05/2012 03668 ROUT INE VENIPUNCTURE 06/07/2012 17371 CBC 06/07/2012 38864 CMP 06/07/2012 02962 LIPI D PANEL 06/07/2012 36110 MAGNESIUM 06/07/2012 9615628 GF R CALC (RESULT ONLY) 06/07/2012 86453 TSH 06/07/2012 27306 LIPASE 06/07/2012 47147 BNP 06/07/2012 47801 PSA FREE AND TOTAL 06/07/2012 86850 EKG, TRACING (IN-HOUSE) 06/09/2012 06542 ECHO 2D 06/09/2012 73973 OXIMETRY 06/09/2012 39959 BMP 07/03/2012 88943 CMP 07/03/2012 57662 LIPI D PANEL 07/03/2012 75765 A1C (IN-HOUSE) 07/03/2012 65089 HEMO GLOBIN (IN-HOUSE) 07/03/2012 36279 CBC 07/03/2012 95580 ROUT INE VENIPUNCTURE 08/05/2012 48074 EKG, TRACING (IN-HOUSE) 08/05/2012 07476 HEMO GLOBIN (IN-HOUSE) 08/05/2012 61304 A1C (IN-HOUSE) 08/05/2012 19914 CBC 08/05/2012 81789 CMP 08/05/2012 52066 LIPI D PANEL 08/05/2012 06303 A1C (IN-HOUSE) 08/23/2012 Dione Conner Jeri 08/23/2012 Trevor Jules Storm 09/06/2012 89609 A1C (IN-HOUSE) 11/29/2012 09803 ROUT INE VENIPUNCTURE 02/07/2013 5203113 GF R CALC (RESULT ONLY) 02/07/2013 92381 CMP 02/07/2013 16895 LIPI D PANEL 02/07/2013 32827 A1C (IN-HOUSE) 03/21/2013 15399 ROUT INE VENIPUNCTURE 03/26/2013 52511 OXIMETRY 03/26/2013 3231083 IM MATURE PLATELET FRACTION (RESULT ONLY) 03/27/2013 42493 DIFF ERENTIAL WBC COUNT (CBC DIFF RESULT) 03/27/2013 90482 RETI CULOCYTE COUNT 03/27/2013 27405 KENNY PHERIAL BLOOD SMEAR 03/27/2013 1330665 CO MPLETE BLOOD COUNT NO DIFF (CBC Result) 03/27/2013 7843545 HE MATOLOGY OTHER REPORT 03/27/2013 22845 ROUT INE VENIPUNCTURE 06/09/2013 1524450 GF R CALC (RESULT ONLY) 06/09/2013 99356 CMP 06/09/2013 76724 LIPI D PANEL 06/09/2013 07076 A1C (IN-HOUSE) 06/23/2013 55079 ROUT INE VENIPUNCTURE 09/17/2013 5489387 GF R CALC (RESULT ONLY) 09/17/2013 46534 CMP 09/17/2013 48007 LIPI D PANEL 09/17/2013 25067 OXIMETRY 09/24/2013 52705 A1C (IN-HOUSE) 02/18/2014 83741 ROUT INE VENIPUNCTURE 02/18/2014 36107 MICR O ALBUMIN-IN HOUSE 02/18/2014 11449 LIPI D PANEL 02/18/2014 15172 LIVE R PANEL (LFT) 02/18/2014 40319 URIC ACID 02/18/2014 Results Test Result Range [...] 7-25 CREATININE 1.15 mg/dL 0.70-1.25 eGFR NON-AFR. [place] 67 mL/min/1.73m2 > OR = 60 eGFR [...] 7-25 CREATININE 1.07 mg/dL 0.70-1.25 eGFR NON-AFR. [place] 73 mL/min/1.73m2 > OR = 60 eGFR [...] 140-400 MPV 11.5 fL 7.5-12.5 ABSOLUTE NEUTROPHILS 46647 cells/uL 1500 -7800 ABSOLUTE LYMPHOCYTES 2111 cells/uL [...] poor plasma bycoagulation assay 27 s 24-35 Activated partial thromboplastin time (a PTT) in platelet poor plasma bycoagulation assay - 12/02/19 11:55 Activated partial thromboplastin time (a PTT) in platelet poor plasma bycoagulation assay 50 s 24-35 Encounters ACCT No. Visit Date/Time Discharge Status Pt. Type Provider Facility Loc./Unit Complaint [id number] 07/07/2016 13:06:00 Document Registration [id number] 01/27/2015 10:10:15 ACT Document Registration [id number] 08/21/2018 09:23:00 08/21/2018 23:59: 00 DIS Outpatient SHINE MOONEY [id number] 11/11/2019 12:00:00 23:59:59 CLS Preadmit AKANKSHA FERRO FACC, DELBERT GOEL CCDS [facility] CATH CAD [id number] 11/10/2019 23:06:00 16:42:00 DIS Inpatient SRAVAN LOVE MD [facility] ICU EXPRESSIVE APHASIA,WEAK NESS [id number] 10/07/2019 09:25:00 23:59:59 CLS Outpatient ESTEVAN FERRO, CHAPO Arora ia [facility] RAD MALIGNANT NEOPLASM OF L OWER LOBE LUNG [id number] 09/16/2019 07:06:00 23:59:59 CLS Outpatient AKANKSHA FERRO FACC, DELBERT GOEL CC DS [facility] CARD CHEST DISCO MFORT,HX OF TOBACCO USE,CAD [id number] 06/10/2019 08:38:00 23:59:59 CLS Outpatient DELBERT VALE MD, FACC, FACP CC DS [facility] CARD CAD,DM [id number] 04/30/2019 08:00:00 13:00:00 DIS Outpatient AKANKSHA FERRO FACC, DELBERT GOEL CC DS [facility] CR STENT [id number] 04/30/2019 08:28:00 23:59:59 CLS Outpatient LISSA OATES APRN [facility] RAD COPD [id number] 01/07/2019 06:50:00 10:11:00 DIS Outpatient DELBERT VALE MD, FACC, FACP CC DS [facility] CAD [id number] 11/28/2018 12:48:00 13:50:00 DIS Outpatient ANAYELI KIRKPATRICK APRN [facility] REHAB LOW BACK PAIN [id number] 11/28/2018 12:49:00 13:45:00 DIS Outpatient PAMELA RAMSEY [facility] REHAB R KNEE PAIN [id number] 08/14/2018 09:13:00 23:59:59 CLS Outpatient PAMELA RAMSEYP [facility] RAD BACK PAIN [id number] 06/13/2018 08:06:00 23:59:59 CLS Outpatient PAMELA RAMSEY [facility] RAD BACK PAIN [id number] 04/05/2018 07:31:00 09:20:00 DIS Outpatient ADRIEL WHEELER MD [facility] SDC RIGHT PAROTID MASS WART HINS TUMOR [id number] 03/29/2018 11:14:00 15:11:00 DIS Outpatient ADRIEL WHEELER MD [facility] PREOP RIGHT PAROTIDECTOMY [id number] 03/12/2018 07:37:00 23:59:59 CLS Outpatient DELBERT VALE MD, FACC, FACP CC DS [facility] H/O TIA,PALPITATIONS,SOB,CAD [id number] 03/05/2018 12:16:00 23:59:59 CLS Preadmit LISSA OATES APRN [facility] PULM COPD,HISTORY OF LUNG CANCER,SOB,TOBACCO USER [id number] 03/05/2018 12:14:00 23:59:59 CLS Outpatient LISSA OATES APRN [facility] RAD COPD,HISTORY OF LUNG CANCER,SOB,TOBACCO USER [id number] 03/05/2018 10:37:00 018 23:59:59 CLS Outpatient LISSA OATES APRN [facility] RT J44.9,Z85.118 [id number] 12/31/2017 15:45:00 018 14:05:00 DIS Inpatient SRAVAN LOVE MD [facility] ICU CVA POSSIBLE [id number] 09/21/2016 13:34:00 017 23:59:59 CLS Outpatient AKANKSHA FERRO FACC, DELBERT GOEL CC DS [facility] CARD I25.10,E13. 9 [id number] 09/12/2016 08:59:00 017 18:00:00 DIS Outpatient SRIDHAR BLACK [facility] CATH CAD,DM,HL [id number] 09/07/2016 15:57:00 017 23:59:59 CLS Preadmit AKANKSHA FERRO FACHiwot, DELBERT GOEL CCDS [facility] RT I25.10,E13.9 [id number] 07/31/2016 10:29:00 017 13:50:00 DIS Outpatient MILE CHOWDHURY DO [facility] SDC HISTORY LUNG CA [id number] 07/28/2016 09:18:00 017 13:24:00 DIS Outpatient MILE CHOWDHURY DO [facility] PREOP PORT REMOVAL [id number] 04/28/2015 00:10:00 016 23:59:59 CLS Preadmit JAMMIE NAVA MD [facility] ONC [id number] 04/14/2015 14:37:00 016 00:01:00 DIS Outpatient JAMMIE NAVA MD [facility] ONC [id number] 01/20/2015 12:38:00 015 00:01:00 DIS Outpatient JAMMIE NAVA MD [facility] ONC [id number] 12/16/2014 08:58:00 015 23:59:59 CLS Outpatient VISHNU STARKS GREEN CHAINER [facility] ONC [id number] 11/10/2014 14:23:00 015 23:59:59 CLS Outpatient CHAPO BARRETO MD [facility] RAD NEOPLASM, [id number] 09/01/2014 12:50:00 015 14:00:00 DIS Outpatient DARSHAN RODRIGUEZ MD [facility] CATH CHEST PAIN R LUNG MASS [id number] 12/30/2012 06:03:00 013 10:10:00 DIS Outpatient GABI VALENCIA MD Via [facility] [address] HEALED FRACTURE RIGHT T IBIA WITH RETAINED HARDWARE [id number] 12/25/2012 07:40:00 013 23:59:59 CLS Outpatient GABI VALENCIA MD [facility] PREOP HEALED FRACTURE RIGHT T IBIA WITH RETAINED HARDWARE [id number] 12/02/2019 08:00:00 P EN Preadmit AKANKSHA FERRO FACC, DELBERT GOEL CCDS [facility] CAD,CHEST DISCOMFORT,DM II,A BNORMAL STRESS TEST [id number] 09/01/2014 12:38:00 Document Registration [id number] 09/01/2014 12:38:00 Document Registration [id number] 06/06/2012 10:32:00 Document Registration [id number] 08/29/2011 20:50:00 Document Registration [id number] 11/16/2010 05:38:00 Document Registration [id number] 11/08/2010 06:44:00 Document Registration [id number] 11/14/2019 14:20:00 11/14/2019 23:59:5 9 CLS Outpatient JAYE RIGGS APRN [facility] [id number] 10/15/2019 14:00:00 Document Registration [id number] 09/23/2018 09:00:00 Document Registration [id number] 08/22/2018 09:00:00 Document Registration [id number] 03/01/2018 08:00:00 Document Registration [id number] 01/10/2018 09:20:00 Document Registration [id number] 02/18/2014 11:25:00 02/18/2014 23:59: 59 CLS Outpatient JAYE RIGGS APRN [id number] 09/24/2013 08:52:00 09/24/2013 23:59: 59 CLS Outpatient IRMA ROGER DO [id number] 09/17/2013 08:27:00 09/17/2013 23:59: 59 CLS Outpatient JAYE RIGGS APRN [id number] 06/23/2013 10:57:00 06/23/2013 23:59: 59 CLS Outpatient JAYE RIGGS APRN [id number] 06/09/2013 07:54:00 06/09/2013 23:59: 59 CLS Outpatient JAYE RIGGS APRN [place] [id number] 04/14/2013 10:21:00 04/14/2013 23:59: 59 CLS Outpatient DARSHAN RODRIGUEZ MD [id number] 03/26/2013 09:21:00 03/26/2013 23:59: 59 CLS Outpatient DARSHAN RODRIGUEZ MD [id number] 03/21/2013 14:10:00 03/21/2013 23:59: 59 CLS Outpatient DARSHAN RODRIGUEZ MD [id number] 02/07/2013 10:19:00 02/07/2013 23:59: 59 CLS Outpatient JAYE RIGGS APRN [id number] 07/03/2012 09:00:00 07/03/2012 23:59: 59 CLS Outpatient [id number] 06/14/2012 10:00:00 06/14/2012 23:59: 59 CLS Outpatient JAYE RIGGS APRN [place] [id number] 06/07/2012 08:04:00 06/07/2012 23:59: 59 CLS Outpatient JAYE RIGGS APRN [place] [id number] 05/24/2012 09:01:00 05/24/2012 23:59: 59 CLS Outpatient [id number] 11/29/2012 09:05:00 Document Registration [id number] 10/17/2012 13:38:00 Document Registration [id number] 09/06/2012 11:40:00 Document Registration [id number] 08/23/2012 08:42:00 Document Registration [id number] 08/05/2012 08:02:00 Document Registration
[2019-12-02] MEDS: PREGABALIN 150 MG (LYRICA) CAPSULE PO SCH ×2 (16:22→19:42)
[2019-12-02] MEDS: OMEPRAZOLE 20 MG (PriLOSEC) CAP NON-FORMULARY PO SCH (16:23)
[2019-12-02] MEDS: REFRESH TEARS EYE OU SCH ×2 (16:24→19:41)
[2019-12-02] MEDS: OPTH OU SCH (19:41)
[2019-12-02] MEDS: KETOTIFEN 0.025% OU SCH (19:41)
[2019-12-02] MEDS: ADVAIR HFA 115/21 MCG INHALER 8 GM IH SCH (20:53)
[2019-12-02] MEDS ORDERED: LIP PO SCH (21:00)
[2019-12-02] MEDS ORDERED: [UNRECOGNIZED DRUG - OTHER] PO SCH (21:00)
[2019-12-02] MEDS ORDERED: KRILL PO SCH (21:00)
[2019-12-02] MEDS ORDERED: PANTOPRAZOLE 20 MG TABLET (PROTONIX) PO SCH (21:00)
[2019-12-02] MEDS ORDERED: ASTX PO SCH (21:00)
[2019-12-02] MEDS ORDERED: EPA PO SCH (21:00)
[2019-12-02] MEDS ORDERED: DHA PO SCH (21:00)
[2019-12-02] MEDS ORDERED: NON-FORMULARY MEDICATION 1 EA EA (Loratadine/Pseudoephedrine (Claritin-D 24 Hour Tablet) 1 PO SCH (21:00)
[2019-12-02] MEDS ORDERED: NON-FORMULARY MEDICATION 1 EA EA (Budesonide/Formoterol Fumarate (Symbicort 160-4.5 Mcg In IH SCH (21:00)
[2019-12-02] MEDS ORDERED: LORATADINE (CLARITIN) 10 MG TAB PO SCH (21:00)
[2019-12-02] MEDS ORDERED: OMEPRAZOLE 20 MG (PriLOSEC) CAP NON-FORMULARY PO SCH (21:00)
[2019-12-03] VITALS (8 sets, daily range): BP systolic 98–119; BP diastolic 62–81
[2019-12-03 03:36] LABS: HEMOGLOBIN 13.5 G/DL (13.3-17.7); MEAN PLATELET VOLUME 11.2 FL (7.4-10.4); RED CELL DISTRIBUTION WIDTH 16.5 % (10.0-14.5); WHITE BLOOD COUNT 11.2 10^3/uL (4.3-11.0)
[2019-12-03 03:54] LABS: BUN/CREATININE RATIO 17; CALCIUM 8.7 MG/DL (8.5-10.1); CARBON DIOXIDE 22 MMOL/L (21-32); CHLORIDE 107 MMOL/L (98-107); CREATININE SERUM 1.17 MG/DL (0.60-1.30); GFR ESTIMATED > 60; GLUCOSE 132 MG/DL (70-105); POTASSIUM 4.2 MMOL/L (3.6-5.0); SODIUM 139 MMOL/L (135-145)
[2019-12-03] MEDS: NS IV 1000 ML 1,000 ML IV SCH (04:16)
[2019-12-03] MEDS: OMEPRAZOLE 20 MG (PriLOSEC) CAP NON-FORMULARY PO SCH (05:59)
[2019-12-03] MEDS: ADVAIR HFA 115/21 MCG INHALER 8 GM IH SCH (07:57)
[2019-12-03] MEDS ORDERED: MAGNESIUM OXIDE (MAG-OX)400 MG TAB PO SCH (08:00)
[2019-12-03] MEDS ORDERED: ASCORBIC ACID (VIT C) 500 MG TABLET PO SCH (08:00)
[2019-12-03] MEDS ORDERED: MULTIVIT W/MINERALS TAB (THERAGRAN M) PO SCH (08:00)
[2019-12-03] MEDS: OPTH OU SCH (08:09)
[2019-12-03] MEDS: PREGABALIN 150 MG (LYRICA) CAPSULE PO SCH (08:09)
[2019-12-03] MEDS: KETOTIFEN 0.025% OU SCH (08:09)
[2019-12-03] MEDS: REFRESH TEARS EYE OU SCH (08:14)
[2019-12-03] MEDS ORDERED: NON-FORMULARY MEDICATION 1 EA EA (Magnesium Oxide (Magnesium) 400 MG) PO SCH (09:00)
[2019-12-03] MEDS ORDERED: ASPIRIN 81 MG CHEW (CHILDREN'S ASA) PO SCH (09:00)
[2019-12-03] MEDS ORDERED: polyethylene glycoL POWDER 17 GM (MIRALAX) PACK PO SCH (09:00)
[2019-12-03] MEDS ORDERED: CALCIUM CARB + VIT D 600 MG (CALCARB + D) TAB PO SCH (09:00)
[2019-12-03] MEDS ORDERED: VITAMIN D3 25 MCG (1,000 UNITS) TABLET PO SCH (09:00)
[2019-12-03] MEDS ORDERED: PRASUGREL 10 MG (EFFIENT) TABLET PO SCH (09:00)
[2019-12-03] MEDS ORDERED: NON-FORMULARY MEDICATION 1 EA EA (Calcium Carbonate/Vitamin D3 (Calcium 500 + Vit D Caplet PO SCH (09:00)
[2019-12-03] MEDS ORDERED: lisINopril 20 MG (PRINIVIL) TABLET PO SCH (09:00)
[2019-12-03] MEDS ORDERED: NON-FORMULARY MEDICATION 1 EA EA (Ascorbic Acid (Vitamin C) 250 MG) PO SCH (09:00)
[2019-12-03] MEDS ORDERED: NON-FORMULARY MEDICATION 1 EA EA (Elderberry Fruit and Flower (Black Elderberry 575 mg Cap PO SCH (09:00)
[2019-12-03] MEDS ORDERED: NON-FORMULARY MEDICATION 1 EA EA (Cholecalciferol (Vitamin D3) (Vitamin D3) 25 MCG) PO SCH (09:00)
--- NOTE | 2019-12-03 12:37 | Progress Note - Cardiology ---
Cardiology SOAP Progress Note Subjective: Feels well No cp or palp or syncope or shortness of breath No n/v/d No leg or groin discomfort Objective: I&O/Vital Signs 12/03/19 12/03/19 12/03/19 12/03/19 01:00 01:00 02:00 03:00 Pulse 72 73 77 84 Resp 15 15 13 B/P (MAP) 100/72 (81) 103/71 (82) Pulse Ox 92 93 94 O2 Delivery NIV CPAP NIV CPAP NIV CPAP 12/03/19 12/03/19 12/03/19 12/03/19 03:03 04:00 04:14 05:00 Temp 36.6 Pulse 72 65 Resp 15 15 B/P (MAP) 100/76 (84) 106/62 (77) Pulse Ox 94 98 O2 Delivery Nasal Cannula Nasal Cannula Nasal Cannula O2 Flow Rate 2.00 2.00 2.00 12/03/19 12/03/19 12/03/19 12/03/19 06:00 06:43 07:58 08:00 Pulse 70 59 79 Resp 18 13 B/P (MAP) 104/81 (89) 99/78 (85) Pulse Ox 98 94 94 O2 Delivery Nasal Cannula Nasal Cannula Nasal Cannula O2 Flow Rate 2.00 2.00 2.00 12/03/19 12/03/19 08:00 08:43 Temp 36.5 Pulse Ox 96 O2 Delivery Nasal Cannula O2 Flow Rate 2.00 Weight (Pounds): 230 Weight (Ounces): 9.0 Weight (Calculated Kilograms): 104.690838 Condition: DP/PT pulses palpable Bruising: mild bruising Constitutional: AAO x 3, well-developed, well-nourished Respiratory: No accessory muscle use; other (good bilat air entry) Cardiovascular: regular rate-rhythm, S1 and S2, systolic murmur (soft BECCA at card base) Gastrointestional: No tender; soft; No guarding, No rebound; audible bowel sounds Extremities: No swelling, No clubbing, No cyanosis, No significant edema Neurologic/Psychiatric: oriented x 3, other (moves all limbs equally) Skin: No rash on exposed areas, No ulcerations on exposed areas Results/Procedures: Labs Laboratory Tests 12/03/19 02:42: White Blood Count 11.2H, Red Blood Count 4.78, Hemoglobin 13.5, Hematocrit 41, Mean Corpuscular Volume 87, Mean Corpuscular Hemoglobin 28, Mean Corpuscular Hemoglobin Concent 33, Red Cell Distribution Width 16.5H, Platelet Count 203, Mean Platelet Volume 11.2H, Sodium Level 139, Potassium Level 4.2, Chloride L evel 107, Carbon Dioxide Level 22, Anion Gap 10, Blood Urea Nitrogen 20H, Creat inine 1.17, Estimat Glomerular Filtration Rate > 60, BUN/Creatinine Ratio 17, Glucose Level 132H, Calcium Level 8.7 Microbiology 12/02/19 MRSA Screen - Final, Complete MRSA not isolated Laboratory Tests 12/02/19 07:20 12/03/19 02:42 A/P: Assessment: Coronary artery disease. Card cath of 12/02/19 (following abnormal MPI of 09/16/19): Coronary artery disease primarily consisting of severe in-stent restenosis in a long-stented segment of the right coronary, to which successful balloon angioplasty was carried out with Emerge 3.5 x 15 mm balloon at several spots. In addition, there was an 80% stenosis in the distal right coronary artery, prior to its bifurcation, to which successful balloon angioplasty was carried out with the Emerge 2.0 x 15 mm balloon. The patient's stents are known to be, from proximal to distal, Alpine Xience 3.5 x 12, 3.0 x 15, 3.0 x 18 and 3.0 x 18; normal left ventricular end-diastolic pressure. MPI of 09/16/19 showed mild to mod basal inf ischemia, LVEF 73% TIA in Dec 2017 and October 2019 (hospitalized to [place], [place]). MRI of 01/01/18 is reported to have shown no acute intracranial process Palpitations. s/p ILR that has not shown significant arrhythmia AL, treated with CPAP beginning Nov 2017 Echo of 06/10/19: LVEF 55-60%. Mild dil of aortic root (4.3 cm). 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
--- NOTE | 2019-12-03 14:11 | NUR ---
RD ASSESSMENT PMHx: DM; TIA; stroke; hypercholesterolemia; CAD; COPD; emphysema; GERD; CA(lung) PT INTERACTION: Pt was awake and pleasant during nutrition assessment. Pt states current appetite is okay. Note no meals have been recorded, per chart review. Pt states following a low-CHO diet at home, and has no issues with chewing/swallowing food. Pt states unsure of recent issues with nausea or vomiting. Pt states some recent issues with constipation and diarrhea, and that his last BM was 8/7. Note pt currently on bowel regimen of miralax qd, per chart review. Pt states recent wt loss, but unsure of amount/timeframe. "I'm fine with my wt loss." Note recent 9# wt loss x1mon, per chart review. Pt states current DM management is good. Note unable to determine recent HbA1c, per chart review. ABNORMAL NUTRITION-RELATED LAB VALUES LOW: HIGH: BUN 20; glu 132 Est. kcal needs: 1900 kcal | 20 kcal/kg Est. Pro needs: 76 g Pro | 0.8 g Pro/kg PES STATEMENT: Note unable to determine nutrition diagnosis at this time. INTERVENTION: Continue with current diet order of CHO 60g/m 1snack diet. Offered and provided diet education on DM management. Reinforced CHO counting and portion control. Pt verbalized understanding of information provided. Will continue to follow and reassess as pt needs, intake, and status change. MONITOR/EVALUATE: PO Intake; Plan of Care; Hydration Status; Weight Status; Lab Values Freddy Graves, MS, RD, LD
== END 2019-12-03 12:58 | disposition home or self-care (01) ==
LOC: ICU 06:52 → CATH 06:52 → UNDOADMIN 10:06 → ICU 10:06 → CSD 11:10 → CATH 12-03 12:58 → UNDODISIN 12-03 12:58
PROVIDERS: ATTEND Internal Medicine Cardiovascular Disease
DX: T82.855A Stenosis of coronary artery stent, initial encounter (principal); I25.10 Atherosclerotic heart disease of native coronary artery without angina pectoris; E11.9 Type 2 diabetes mellitus without complications; G47.33 Obstructive sleep apnea (adult) (pediatric); I65.29 Occlusion and stenosis of unspecified carotid artery; K21.9 Gastro-esophageal reflux disease without esophagitis; J44.9 Chronic obstructive pulmonary disease, unspecified; Z79.899 Other long term (current) drug therapy; Z79.84 Long term (current) use of oral hypoglycemic drugs; Z85.118 Personal history of other malignant neoplasm of bronchus and lung; Z86.73 Personal history of transient ischemic attack (TIA), and cerebral infarction without residual deficits; Z87.891 Personal history of nicotine dependence; Z82.49 Family history of ischemic heart disease and other diseases of the circulatory system; Z87.19 Personal history of other diseases of the digestive system; Z88.8 Allergy status to other drugs, medicaments and biological substances
CPT/HCPCS: 80048; 80053; 80061; 85027 ×2; 85610; 85730; 87081; 92920; 93005; 93458; 94640 ×2; C1725 ×2; C1769; C1887; C1894 ×2; 36415

== ENCOUNTER → 2019-12-17 | Outpatient (CLI) | payer OTHER ==
[~2019-12-17] MED LIST changes: +GADOBUTROL 10 MMOL/10 ML (GADAVIST) VIAL IV ONE
[2019-12-17 07:48] LABS: CREATININE SERUM 1.25 MG/DL (0.60-1.30)
--- NOTE | 2019-12-17 10:48 | Diagnostic Imaging Report ---
PROCEDURE: MR imaging abdomen with and without contrast. TECHNIQUE: Multiplanar, multisequence MR imaging of the abdomen was performed with and without contrast. 3-D MIP reformats of the biliary system were created on a separate workstation and submitted for interpretation for MRCP protocol. INDICATION: Pancreatic cyst. COMPARISON: CT abdomen from 09/01/2014. FINDINGS: No intrahepatic or extra hepatic biliary duct dilatation. The common bile duct measures up to 5 mm and has smooth distal tapering. No choledocholithiasis. Gallbladder is normally filled without stones or wall thickening. Mildly dilated at the level of the body and proximal tail measuring up to 6 mm (image 30, series 6). Additionally, there are multiple T2 hyperintense cystic structures within the pancreatic body that directly communicate with the main pancreatic duct and are indicative of side branch intraductal papillary mucinous neoplasm (IPMN). The largest of these cystic structures measures approximately 12 x 13 mm. There is no associated enhancement with any of the side branch IPMN. Additionally, no enhancement is seen along the pancreatic duct. No solid pancreatic mass or peripancreatic inflammatory change. The liver, spleen, adrenals and kidneys are normal. No abdominal lymphadenopathy. No dilated loops of bowel or ascites. IMPRESSION: 1. 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 If patient remains asymptomatic, consider annual surveillance with CT or MRI of the abdomen utilizing pancreatic protocol to monitor for potential slow growth. Dictated by: Dictated on workstation # [id number]
== END ==
LOC: RAD 07:20
PROVIDERS: ATTEND Nurse Practitioner Adult Health
DX: D13.6 Benign neoplasm of pancreas (principal); K86.2 Cyst of pancreas
CPT/HCPCS: 36415; 74183; 82565; 84520

== ENCOUNTER → 2020-03-05 | Outpatient (CLI) | payer OTHER ==
[~2020-03-05] MED LIST changes: +ASPI-1238 PO; -ASPI-983 PO; -GADOBUTROL 10 MMOL/10 ML (GADAVIST) VIAL IV ONE
--- NOTE | 2020-03-05 10:21 | Diagnostic Imaging Report ---
INDICATION: Emphysema. TIME OF EXAM: 10:03 a.m. COMPARISON: Correlation is made with prior chest from 11/10/2019. FINDINGS: Heart size is normal. Cardiac monitoring device overlies the lower left chest. Bilateral interstitial changes noted previously have resolved. Lungs appear to be clear on today's exam. No effusion or pneumothorax is detected. IMPRESSION: No acute cardiopulmonary process is detected. Dictated by: Dictated on workstation # [id number]
== END ==
LOC: RAD 09:41
PROVIDERS: ATTEND Nurse Practitioner Family
DX: J43.9 Emphysema, unspecified (principal); G47.33 Obstructive sleep apnea (adult) (pediatric); Z85.118 Personal history of other malignant neoplasm of bronchus and lung
CPT/HCPCS: 71046

== ENCOUNTER 2020-04-13 08:48 | Day surgery (SDC) | payer OTHER ==
[~2020-04-13] VITALS: Ht 180 cm; Wt 104.6 kg
[2020-04-13] MEDS ORDERED: LIDOCAINE 1% INJ 20 ML 20 ML VIAL ONE (08:50)
[2020-04-13] MEDS ORDERED: HEParin (CATH LAB) 1,000 ML IV ONE (08:50)
[2020-04-13] MEDS ORDERED: NS IV 1000 ML 1,000 ML ONE (08:50)
[2020-04-13] MEDS ORDERED: NS (IVPB) 250 ML ONE (08:51)
[2020-04-13] MEDS ORDERED: ceFAZolin INJECTION 1,000 MG ONE (08:51)
[2020-04-13] MEDS ORDERED: BACITRACIN INJECTION 50,000 UNIT, SODIUM CHLORIDE 0.9% IRRIGATIO 500 ML IR ONE ×2 (09:00)
[2020-04-13] MEDS ORDERED: ceFAZolin INJECTION 1,000 MG VIAL IV ONE (09:00)
[2020-04-13] MEDS ORDERED: NS IV 1000 ML 1,000 ML IV SCH ×2 (09:00→12:45)
[2020-04-13 09:14] VITALS: BP 128/88
[2020-04-13 09:17] LABS: HEMOGLOBIN 15.6 g/dL (13.3-17.7); MEAN PLATELET VOLUME 10.8 fL (9.0-12.2); WHITE BLOOD COUNT 9.9 10^3/uL (4.3-11.0)
[2020-04-13 09:28] LABS: INR 0.9 (0.8-1.4); PROTHROMBIN TIME PATIENT 12.8 SEC (12.2-14.7)
[2020-04-13] MEDS ORDERED: FLUT9.9S NS (09:39)
[2020-04-13] MEDS ORDERED: FENO135C PO (09:39)
[2020-04-13] MEDS ORDERED: ASCO500T7 PO (09:39)
[2020-04-13] MEDS ORDERED: TIOT4MIS2 IH (09:39)
[2020-04-13 10:06] LABS: ALANINE AMINOTRANSFERASE 27 U/L (0-55); ALBUMIN 4.1 GM/DL (3.2-4.5); ALKALINE PHOSPHATASE 78 U/L (40-136); BILIRUBIN,TOTAL 0.4 MG/DL (0.1-1.0); BUN/CREATININE RATIO 18; CALCIUM 9.4 MG/DL (8.5-10.1); CARBON DIOXIDE 24 MMOL/L (21-32); CHLORIDE 108 MMOL/L (98-107); CHOLESTEROL 120 MG/DL (< 200); CREATININE SERUM 1.16 MG/DL (0.60-1.30); GFR ESTIMATED > 60; GLUCOSE 131 MG/DL (70-105); HDL CHOLESTEROL 37 MG/DL (40-60); POTASSIUM 4.2 MMOL/L (3.6-5.0); SODIUM 139 MMOL/L (135-145); TOTAL PROTEIN 7.3 GM/DL (6.4-8.2); TRIGLYCERIDES 88 MG/DL (<150); VLDL CHOLESTEROL 18 MG/DL (5-40)
[2020-04-13] MEDS ORDERED: fentaNYL INJECTION 100 MCG/2 ML AMP ONE (10:32)
[2020-04-13] MEDS ORDERED: MIDAZOLAM 5 MG/5 ML (VERSED) VIAL ONE (10:32)
[2020-04-13 12:00] VITALS: BP 133/98
--- NOTE | 2020-04-13 12:39 | Cardiac Procedure Note-CS/ASA ---
Pre-Procedure Note Pre-Op Procedure Note H&P Reviewed The H&P was reviewed, patient examined and no changes noted. Date H&P Reviewed: Apr 13, 2020 Time H&P Reviewed: 11:10 Conscious Sedation Pre-Proced Time 11:10 ASA Score 3 For ASA 3 and 4: Consider anesthesia and medical clearance. Also, for patients with a history of failed moderate sedation consider anesthesia. Airway Lungs Heart ASA score ASA 1: a normal healthy patient ASA 2: a patient with a mild systemic disease (mid diabetes, controlled hypertension, obesity ASA 3: a patient with a severe systemic disease that limits activity (angina, COPD, prior Myocardial infarction) ASA 4: a patient with an incapacitating disease that is a constant threat to life (CHF, renal failure) ASA 5: a moribund patient not expected to survive 24 hrs. (ruptured aneurysm) ASA 6: a declared brain- patient whose organs are being harvested. For emergent operations, add the letter E after the classification Mallampati Classification Grade 2 Sedation Plan Analgesia, Amnesia, Plan communicated to team members, Discussed options with patient/fam, Discussed risks with patient/fam The patient is an appropriate candidate to undergo the planned procedure, sedation, and anesthesia. The patient immediately re-assessed prior to indication. DELBERT VALE MD FACP FAC CCDS Apr 13, 2020 12:39
[2020-04-13] MEDS ORDERED: PATIENT MAY USE OWN MEDS, ALL PO SCH (12:45)
[2020-04-13] MEDS ORDERED: NON-FORMULARY MEDICATION 1 EA EA (Semaglutide (Ozempic) 0.25 MG) SQ SCH (12:45)
[2020-04-13] MEDS ORDERED: POTASSIUM GLUCONATE 90 MG PO PRN (12:45)
[2020-04-13] MEDS ORDERED: RT-ALBUTEROL SULF 2.5 MG/3 ML PRE-MIX VIAL IH PRN (12:45)
[2020-04-13] MEDS ORDERED: ACETAMINOPHEN 325 MG TABLET PO PRN (12:45)
[2020-04-13] MEDS ORDERED: PREGABALIN 150 MG (LYRICA) CAPSULE PO SCH (13:00)
--- NOTE | 2020-04-13 13:32 | Diagnostic Imaging Report ---
INDICATION: Status post pacemaker placement. COMPARISON: 03/05/2020 FINDINGS: Frontal and lateral radiographic views of the chest obtained demonstrate interval placement left-sided dual-lead pacemaker. There is no evidence of pneumothorax or large effusion. Lungs show low inspiratory volumes. Cardiac silhouette and pulmonary vasculature stable. Osseous structures show no new acute abnormality. IMPRESSION:. New left-sided dual-lead pacemaker. No pneumothorax. Dictated by: Dictated on workstation # [id number]
[2020-04-13] MEDS ORDERED: RT-ALBUTEROL INHALER HFA (VENTOLIN HFA) 18 GM IH PRN (15:00)
--- NOTE | 2020-04-13 16:21 | OPERATIVE REPORT ---
DATE OF SERVICE: 04/13/2020 PREOPERATIVE DIAGNOSIS: Syncope and symptomatic bradycardia. POSTOPERATIVE DIAGNOSIS: Syncope and symptomatic bradycardia. INDICATIONS: The patient is a 65-year-old gentleman, who has had syncope and near syncope. Implantable loop recorder tracings have shown pauses of up to 4 seconds. This is in the absence of any rate controlling agents. Accordingly, dual chamber pacemaker implantation was carried out today after having obtained an informed consent. DESCRIPTION OF PROCEDURE: He was brought to the cardiac catheterization laboratory in a fasting state. The left prepectoral area was prepared and draped in the usual sterile fashion. Lidocaine 1% was used for local anesthesia. Modified Seldinger technique was used to advance two guidewires into the left subclavian vein with the tip was placed in the right atrium. Then we used sharp and blunt dissection to make a pacemaker pocket. We used the guidewire to advance sheath and removed the wires. We used the sheath to advance leads and removed the sheath. All lead manipulation was carried out under fluoroscopy. Both leads are active fixation leads. The right ventricular lead was placed in the right ventricular apex. The right atrial lead was placed at the right atrial appendage. The leads were tested and found to be functioning normally and not causing diaphragmatic stimulation. The atrial lead is Medtronic model 393648 with serial #[id number]. The ventricular lead is Medtronic model 5076-58 and serial number is [id number]. The leads were sutured to the prepectoral fascia using 3.0 Ti-Cron over the sleeves. The pocket had been packed with gauze soaked in antibiotic solution. This was removed. The pocket was thoroughly irrigated with an antibiotic solution. Good hemostasis was assured. The leads were attached to a dual chamber pacemaker. This is Medtronic model W3DR01 with serial number [id number]. The pacemaker was then placed and Tyrx pack. The reference number of which is [id number]. The leads and pacemaker were placed in the pacemaker pocket and the pocket was closed in 2 layers using 3.0 Vicryl. The patient tolerated the procedure well. P wave 2.1 mV; R wave 18.2 mV; atrial lead impedance 665 ohms; vent lead impedance 456 ohms; atrial cap threshold 0.5V @ 0.4 ms; vent cap threshold 0.5V @ 0.4 ms Job ID: [id number] DocumentID: [id number] Dictated Date: 04/13/2020 12:55:44 Supervisor [employer]acitor Processing Date: 04/13/2020 16:20:42 Dictated By: DELBERT VALE MD, MA, FACP, FACC, MTDD
[2020-04-13] MEDS: CARBOXYMETHYLCELLULOSE 0.5% OU SCH ×2 (17:18→20:36)
[2020-04-13] MEDS: oxyCODONE/APAP 5/325MG (PERCOCET 5) TABLET PO PRN ×2 (17:19→18:03)
[2020-04-13] MEDS: ceFAZolin INJECTION 1,000 MG in WATER (STERILE) FOR INJECTION 10 ML IV SCH (17:19)
[2020-04-13] MEDS ORDERED: metFORMIN XR 500 MG (GLUCOPHAGE XR) TAB PO SCH (18:00)
[2020-04-13] MEDS ORDERED: CLARITIN D PO PRN (18:00)
[2020-04-13] MEDS: PREGABALIN 150 MG (LYRICA) CAPSULE PO SCH (20:36)
[2020-04-13] MEDS: OPTH OU SCH (20:37)
[2020-04-13] MEDS: KETOTIFEN 0.025% OU SCH (20:37)
[2020-04-13] MEDS: FLUTICASONE NASAL SPRAY (FLONASE) 16 GM BTL NS SCH (20:37)
[2020-04-13] MEDS: OMEPRAZOLE 20 MG (PriLOSEC) CAP NON-FORMULARY PO SCH (20:38)
[2020-04-13] MEDS: SYMBICORT 160/4.5 MCG INHALER 6 GM (NON-FORMULARY) IH SCH (20:41)
[2020-04-13] MEDS ORDERED: KRILL PO SCH (21:00)
[2020-04-13] MEDS ORDERED: PANTOPRAZOLE 20 MG TABLET (PROTONIX) PO SCH (21:00)
[2020-04-13] MEDS ORDERED: NON-FORMULARY MEDICATION 1 EA EA (Fluticasone Propionate (Flonase Allergy Relief) 2 SPRAY) NS SCH (21:00)
[2020-04-13] MEDS ORDERED: DHA PO SCH (21:00)
[2020-04-13] MEDS ORDERED: ASTX PO SCH (21:00)
[2020-04-13] MEDS ORDERED: [UNRECOGNIZED DRUG - OTHER] PO SCH (21:00)
[2020-04-13] MEDS ORDERED: EPA PO SCH (21:00)
[2020-04-13] MEDS ORDERED: NON-FORMULARY MEDICATION 1 EA EA (Budesonide/Formoterol Fumarate (Symbicort 160-4.5 Mcg In IH SCH (21:00)
[2020-04-13] MEDS ORDERED: LIP PO SCH (21:00)
[2020-04-13] MEDS ORDERED: OMEPRAZOLE 20 MG (PriLOSEC) CAP NON-FORMULARY PO SCH (21:00)
[2020-04-14] MEDS: oxyCODONE/APAP 5/325MG (PERCOCET 5) TABLET PO PRN (01:54)
[2020-04-14] MEDS: ceFAZolin INJECTION 1,000 MG in WATER (STERILE) FOR INJECTION 10 ML IV SCH ×2 (01:54→09:04)
[2020-04-14 03:37] LABS: HEMOGLOBIN 13.3 g/dL (13.3-17.7); MEAN PLATELET VOLUME 10.6 fL (9.0-12.2); WHITE BLOOD COUNT 9.8 10^3/uL (4.3-11.0)
[2020-04-14 03:47] LABS: ALBUMIN 3.7 GM/DL (3.2-4.5); CHLORIDE 108 MMOL/L (98-107); POTASSIUM 4.4 MMOL/L (3.6-5.0); SODIUM 137 MMOL/L (135-145)
[2020-04-14 03:49] LABS: CALCIUM 8.9 MG/DL (8.5-10.1)
[2020-04-14 03:50] LABS: GLUCOSE 107 MG/DL (70-105); TOTAL PROTEIN 6.3 GM/DL (6.4-8.2)
[2020-04-14 03:51] LABS: CARBON DIOXIDE 20 MMOL/L (21-32)
[2020-04-14 03:52] LABS: BILIRUBIN,TOTAL 0.4 MG/DL (0.1-1.0)
[2020-04-14 03:53] LABS: ALKALINE PHOSPHATASE 75 U/L (40-136); CREATININE SERUM 1.13 MG/DL (0.60-1.30); GFR ESTIMATED > 60
[2020-04-14 03:54] LABS: BUN/CREATININE RATIO 18
[2020-04-14 03:56] LABS: ALANINE AMINOTRANSFERASE 22 U/L (0-55)
[2020-04-14] MEDS: PREGABALIN 150 MG (LYRICA) CAPSULE PO SCH ×2 (07:56→14:43)
[2020-04-14] MEDS: OMEPRAZOLE 20 MG (PriLOSEC) CAP NON-FORMULARY PO SCH (07:57)
--- NOTE | 2020-04-14 07:57 | Progress Note - Cardiology ---
Cardiology SOAP Progress Note Subjective: Lying in bed. No c/o CP. C/O mod discomfort at device insertion site. No c/o SOB. Objective: I&O/Vital Signs Weight (Pounds): 230 Weight (Ounces): 9.0 Weight (Calculated Kilograms): 104.925192 Side: left Device Insertion Site: without hematoma, no signs of inflammation Swelling: without swelling Bruising: moderated bruising Constitutional: AAO x 3, well-developed, well-nourished Respiratory: No accessory muscle use, No respiratory distress; chest expansion is symmetric, chest is bilaterally symmetric, other (prolonged expiratory phase) Cardiovascular: regular rate-rhythm; No JVD Gastrointestional: No tender; soft, round, audible bowel sounds Extremities: no lower extremity edema bilateral Neurologic/Psychiatric: grossly intact (moves all extremities) Skin: No rash on exposed areas, No ulcerations on exposed areas Results/Procedures: Labs Microbiology 04/13/20 MRSA Screen - Final, Complete MRSA not isolated Procedures NAME: HERBERTH BOB Sophia REYES [facility] REC#: [id number] PT STATUS: [facility] [place] : 1955 PHYSICIAN: DELBERT VALE MD, MA, FACP, FACC, FSCAI, CCDS ADMIT DATE: 04/13/20/CATH Draft Date of Exam:04/13/20 CHEST PA/LAT (2 VIEW) INDICATION: Status post pacemaker placement. COMPARISON: 03/05/2020 FINDINGS: Frontal and lateral radiographic views of the chest obtained demonstrate interval placement left-sided dual-lead pacemaker. There is no evidence of pneumothorax or large effusion. Lungs show low inspiratory volumes. Cardiac silhouette and pulmonary vasculature stable. Osseous structures show no new acute abnormality. IMPRESSION:. New left-sided dual-lead pacemaker. No pneumothorax. Dictated on workstation # [id number] Dict: 04/13/20 1317 Trans: 04/13/20 1331 CVB [id number] Interpreted by: ALEXIA DUNLAP MD Up to 4 sec pauses on 03/26/20 in absence of any rate-lower meds Palpitations. s/p ILR that has not shown significant arrhythmia Coronary artery disease. Card cath of 8/11/20 (following abnormal MPI of 09/16/19): Coronary artery disease primarily consisting of severe in-stent restenosis in a long-stented segment of the right coronary, to which successful balloon angioplasty was carried out with Emerge 3.5 x 15 mm balloon at several spots. In addition, there was an 80% stenosis in the distal right coronary artery, prior to its bifurcation, to which successful balloon angioplasty was carried out with the Emerge 2.0 x 15 mm balloon. The patient's stents are known to be, from proximal to distal, Alpine Xience 3.5 x 12, 3.0 x 15, 3.0 x 18 and 3.0 x 18; normal left ventricular end-diastolic pressure. MPI of 09/16/19 showed mild to mod basal inf ischemia, LVEF 73% TIA in Dec 2017 and October 2019 (hospitalized to [place], [place]). MRI of 01/01/18 is reported to have shown no acute intracranial process AL, treated with CPAP beginning Nov 2017 Echo of 06/10/19: LVEF 55-60%. Mild dil of aortic root (4.3 cm). 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
[2020-04-14] MEDS ORDERED: CEFU500T63 PO (07:59)
[2020-04-14] MEDS ORDERED: ASCORBIC ACID (VIT C) 500 MG TABLET PO SCH (08:00)
[2020-04-14] MEDS ORDERED: MULTIVIT W/MINERALS TAB (THERAGRAN M) PO SCH (08:00)
[2020-04-14] MEDS ORDERED: CALCIUM CARB + VIT D 600 MG (CALCARB + D) TAB PO SCH (08:00)
[2020-04-14] MEDS: FLUTICASONE NASAL SPRAY (FLONASE) 16 GM BTL NS SCH (08:01)
[2020-04-14] MEDS: KETOTIFEN 0.025% OU SCH (08:01)
[2020-04-14] MEDS: OPTH OU SCH (08:01)
[2020-04-14] MEDS: CARBOXYMETHYLCELLULOSE 0.5% OU SCH ×2 (08:01→13:00)
[2020-04-14] MEDS: SYMBICORT 160/4.5 MCG INHALER 6 GM (NON-FORMULARY) IH SCH (08:02)
[2020-04-14] MEDS ORDERED: metFORMIN XR 500 MG (GLUCOPHAGE XR) TAB PO SCH (08:23)
[2020-04-14] MEDS ORDERED: NON-FORMULARY MEDICATION 1 EA EA (Tiotropium Bromide (Spiriva Respimat 2.5MCG/ACTUATION) 2 IH SCH (09:00)
[2020-04-14] MEDS ORDERED: ASPIRIN E.C. 81 MG (ECOTRIN) TAB PO SCH (09:00)
[2020-04-14] MEDS ORDERED: FENOFIBRATE 134 MG (LOFIBRA) CAPSULE PO SCH (09:00)
[2020-04-14] MEDS ORDERED: NON-FORMULARY MEDICATION 1 EA EA (Cholecalciferol (Vitamin D3) (Vitamin D3) 25 MCG) PO SCH (09:00)
[2020-04-14] MEDS ORDERED: NON-FORMULARY MEDICATION 1 EA EA (Calcium Carbonate/Vitamin D3 (Calcium 500 + Vit D Caplet PO SCH (09:00)
[2020-04-14] MEDS ORDERED: VITAMIN D3 25 MCG (1,000 UNITS) TABLET PO SCH (09:00)
[2020-04-14] MEDS ORDERED: FENOFIBRIC ACID 135 MG PO SCH ×2 (09:00)
[2020-04-14] MEDS ORDERED: lisINopril 20 MG (PRINIVIL) TABLET PO SCH (09:00)
[2020-04-14] MEDS ORDERED: PRASUGREL 10 MG (EFFIENT) TABLET PO SCH (09:00)
--- NOTE | 2020-04-14 09:30 | NUR ---
Patient getting ready for discharge and experienced an episode of cold sweats and nausea. Blood Glucose measured at 109, VS WNL. Dr. Serna notified. New orders received. Will continue to monitor and postpone discharge at this time.
--- NOTE | 2020-04-14 09:48 | Discharge Inst-Cardiology ---
Discharge Inst-Cardiac Discharge Medications New Medications: Cefuroxime Axetil (Cefuroxime) 500 Mg Tablet 500 MG PO BID, #10 TAB Continued Medications: Albuterol Sulfate (Proair Hfa) 1 Puff Puff 2 PUFF IH Q4H PRN for SHORTNESS OF BREATH, PUFF Ascorbic Acid (Ascorbic Acid) 500 Mg Tablet 1000 MG PO DAILY, TAB Aspirin (Aspirin EC) 81 Mg Tablet.dr 81 MG PO DAILY, TAB Atorvastatin Calcium (Atorvastatin Calcium) 80 Mg Tablet 80 MG PO HS, TAB Budesonide/Formoterol Fumarate (Symbicort 160-4.5 Mcg Inhaler) 10.2 Gm Hfa.aer.ad 2 PUFF IH BID, INHALER Calcium Carbonate/Vitamin D3 (Calcium 500 + Vit D Caplet) 1 Each Tablet 1 TAB PO DAILY, TAB Carboxymethylcellulos/Glycerin (Refresh Optive Eye Drops) 15 Ml Drops 1 DROP OU QID, DROPS Cholecalciferol (Vitamin D3) (Vitamin D3) 25 Mcg Capsule 25 MCG PO DAILY, CAP Fenofibric Acid (Choline) (Trilipix) 135 Mg Capsule.dr 135 MG PO DAILY, CAP Fluticasone Propionate (Flonase Allergy Relief) 9.9 Ml [place].susp 2 SPRAY NS BID, #1 EACH 2 SPRAYS PER NOSTRIL DAILY X 2 DAYS THEN 1 SPRAY DAILY Ketotifen Fumarate (Zaditor) 5 Ml Drops 1 DROP OU BID, DROPS Krill/Om3/Dha/Epa/Om6/Lip/Astx (Krill Oil 1,000 mg Softgel) 1 Each Capsule 2 EACH PO HS, CAP Lisinopril (Lisinopril) 20 Mg Tablet 20 MG PO DAILY, TAB Loratadine/Pseudoephedrine (Claritin-D 24 Hour Tablet) 1 Each Tab.er.24h 1 EACH PO HS, TAB Metformin HCl (Metformin HCl ER) 500 Mg Tab.er.24h 500 MG PO BID, TAB Multivitamin (Multi-Vitamin Daily) 1 Each Tablet 1 TAB PO DAILY, TAB Omeprazole (Omeprazole) 20 Mg Capsule.dr 20 MG PO BID, CAP Potassium Gluconate (Potassium Gluconate) 90 Mg Tablet 90 MG PO HS PRN for MUSCLE CRAMPS, TAB Prasugrel HCl (Effient) 10 Mg Tablet 10 MG PO DAILY, TAB Pregabalin (Lyrica) 150 Mg Capsule 150 MG PO TID, CAP Semaglutide (Ozempic) 0.25 Mg/0.2 Ml Pen.injctr 0.25 MG SQ SUNDAY, VIAL Tiotropium Sch[place]z (Spiriva Respimat 2.5MCG/ACTUATION) 4 Gm Mist.inhal 2 PUFF IH DAILY, INH Patient Instructions Patient Instructions: Follow up appointment on Sunday for dressing changed Follow up appointment in 2 weeks for appointment with SRIDHAR Bustamante Apr 14, 2020 09:47
[2020-04-14] MEDS ORDERED: ONDANSETRON 4 MG/2 ML (SDV) Z0FRAN IVP PRN (10:30)
[2020-04-14] MEDS ORDERED: NS IV 1000 ML 1,000 ML IV SCH ×2 (10:30→10:45)
[2020-04-14] MEDS ORDERED: ONDANSETRON 4 MG/2 ML (SDV) Z0FRAN ONE (10:39)
--- NOTE | 2020-04-14 11:44 | Progress Note - Cardiology ---
Cardiology SOAP Progress Note Subjective: No cp or palp or syncope Some nausea this am No focal weakness No vomiting or diarrhea No shortness of breath Objective: I&O/Vital Signs 04/14/20 04/14/20 04/14/20 04/14/20 00:00 01:00 04:00 07:00 Temp 37.0 36.8 Pulse 80 64 68 60 Resp 17 12 B/P (MAP) 120/83 (95) 127/84 (98) Pulse Ox 95 95 O2 Delivery NIV CPAP Nasal Cannula O2 Flow Rate 2.00 2.00 04/14/20 04/14/20 07:14 08:07 Temp 36.1 Pulse 67 Resp 19 B/P (MAP) 126/88 (101) Pulse Ox 91 96 O2 Delivery Room Air Nasal Cannula O2 Flow Rate 2.00 04/14/20 00:00 Intake Total 1805 ml Balance 1805 ml Weight (Pounds): 230 Weight (Ounces): 9.0 Weight (Calculated Kilograms): 104.316398 Side: left Device Insertion Site: without hematoma, no signs of inflammation Swelling: without swelling Bruising: moderated bruising Constitutional: AAO x 3, well-developed, well-nourished Respiratory: No accessory muscle use, No respiratory distress; chest expansion is symmetric, chest is bilaterally symmetric, other (prolonged expiratory phase) Cardiovascular: regular rate-rhythm; No JVD Gastrointestional: No tender; soft, round, audible bowel sounds Extremities: no lower extremity edema bilateral Neurologic/Psychiatric: grossly intact (moves all extremities) Skin: No rash on exposed areas, No ulcerations on exposed areas Results/Procedures: Labs Laboratory Tests 04/14/20 03:20: White Blood Count 9.8, Red Blood Count 4.71, Hemoglobin 13.3, Hematocrit 41, Mean Corpuscular Volume 87, Mean Corpuscular Hemoglobin 28, Mean Corpuscular Hemoglobin Concent 33, Red Cell Distribution Width 14.1, Platelet Count 205, Mean Platelet Volume 10.6, Sodium Level 137, Potassium Level 4.4, Chloride Level 108H, Carbon Dioxide Level 20L, Anion Gap 9, Blood Urea Nitrogen 20H, Creatinine 1.13, Estimat Glomerular Filtration Rate > 60, BUN/Creatinine Ratio 18, Glucose Level 107H, Calcium Level 8.9, Corrected Calcium 9.1, Total Bilirubin 0.4, Aspartate Amino Transf (AST/SGOT) 21, Alanine Aminotransferase (ALT/SGPT) 22, Alkaline Phosphatase 75, Total Protein 6.3L, Albumin 3.7 04/14/20 10:22: Glucometer 109 Microbiology 04/13/20 MRSA Screen - Final, Complete MRSA not isolated A/P: Assessment: S/P PPM implant on 04-13-2020 for symptomatic bradycardia and up to 4 sec pauses seen on ILR in absence of any rate-lower meds Palpitations. s/p ILR that has not shown significant arrhythmia Coronary artery disease. Card cath of 12/02/19 (following abnormal MPI of 09/16/19): Coronary artery disease primarily consisting of severe in-stent restenosis in a long-stented segment of the right coronary, to which successful balloon angioplasty was carried out with Emerge 3.5 x 15 mm balloon at several spots. In addition, there was an 80% stenosis in the distal right coronary artery, prior to its bifurcation, to which successful balloon angioplasty was carried out with the Emerge 2.0 x 15 mm balloon. The patient's stents are known to be, from proximal to distal, Alpine Xience 3.5 x 12, 3.0 x 15, 3.0 x 18 and 3.0 x 18; normal left ventricular end-diastolic pressure. MPI of 09/16/19 showed mild to mod basal inf ischemia, LVEF 73% TIA in Dec 2017 and October 2019 (hospitalized to [place], [place]). MRI of 01/01/18 is reported to have shown no acute intracranial process AL, treated with CPAP beginning Nov 2017 Echo of 06/10/19: LVEF 55-60%. Mild dil of aortic root (4.3 cm). 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 Functioning normally Continue current medications Ceftin 500mg x5 days F/U on Sunday at our office for wound inspection F/U in 2 weeks for an appt Discussed activity restrictions per discharge instructions, verbalizes understanding DELBERT VALE MD FACP FAC CCDS Apr 14, 2020 11:44
== END 2020-04-14 15:50 | disposition home or self-care (01) ==
LOC: CATH 08:48 → CSD 13:27 → CATH 04-14 15:50
PROVIDERS: ATTEND Internal Medicine Cardiovascular Disease
DX: R55 Syncope and collapse (principal); R00.1 Bradycardia, unspecified; E11.9 Type 2 diabetes mellitus without complications; I25.10 Atherosclerotic heart disease of native coronary artery without angina pectoris; J44.9 Chronic obstructive pulmonary disease, unspecified; K21.9 Gastro-esophageal reflux disease without esophagitis; E78.2 Mixed hyperlipidemia; G47.33 Obstructive sleep apnea (adult) (pediatric); I77.810 Thoracic aortic ectasia; Z79.899 Other long term (current) drug therapy; Z79.51 Long term (current) use of inhaled steroids; Z79.82 Long term (current) use of aspirin; Z79.84 Long term (current) use of oral hypoglycemic drugs; Z91.018 Allergy to other foods; Z88.8 Allergy status to other drugs, medicaments and biological substances; Z87.891 Personal history of nicotine dependence; Z86.73 Personal history of transient ischemic attack (TIA), and cerebral infarction without residual deficits; Z85.118 Personal history of other malignant neoplasm of bronchus and lung; Z80.9 Family history of malignant neoplasm, unspecified
CPT/HCPCS: 33208; 36415; 71046; 80053; 80061; 82962; 85027; 85610; 85730; 87081; 93005

== ENCOUNTER → 2020-05-05 | Outpatient (CLI) | payer OTHER ==
[~2020-05-05] MED LIST changes: +ASCO500T7 PO; +CEFU500T63 PO; +FENO135C PO; +FLUT9.9S NS; +TIOT4MIS2 IH
[2020-05-05 16:41] LABS: ALBUMIN 4.3 GM/DL (3.2-4.5); BILIRUBIN,TOTAL 0.4 MG/DL (0.1-1.0); CALCIUM 9.5 MG/DL (8.5-10.1); CREATININE SERUM 1.34 MG/DL (0.60-1.30); POTASSIUM 4.1 MMOL/L (3.6-5.0); TOTAL PROTEIN 7.6 GM/DL (6.4-8.2)
== END ==
LOC: LAB 15:51
PROVIDERS: ATTEND Nurse Practitioner Family
DX: E78.2 Mixed hyperlipidemia (principal)
CPT/HCPCS: 36415; 80053; 80061

== ENCOUNTER 2020-08-17 10:00 | Day surgery (SDC) | payer OTHER ==
[2020-08-17] VITALS (21 sets, daily range): BP systolic 85–122; BP diastolic 34–88
[~2020-08-17] VITALS: Ht 180 cm; Wt 104.0 kg
[2020-08-17 08:29] LABS: HEMOGLOBIN 15.1 g/dL (13.3-17.7); MEAN PLATELET VOLUME 10.8 fL (9.0-12.2)
[2020-08-17 08:46] LABS: PROTHROMBIN TIME PATIENT 13.9 SEC (12.2-14.7)
[2020-08-17 08:51] LABS: ALBUMIN 4.3 GM/DL (3.2-4.5); BILIRUBIN,TOTAL 0.5 MG/DL (0.1-1.0); CALCIUM 10.4 MG/DL (8.5-10.1); CREATININE SERUM 1.54 MG/DL (0.60-1.30); POTASSIUM 4.6 MMOL/L (3.6-5.0); TOTAL PROTEIN 7.4 GM/DL (6.4-8.2)
--- NOTE | 2020-08-17 09:27 | Cardiac Procedure Note-CS/ASA ---
Pre-Procedure Note Pre-Op Procedure Note H&P Reviewed The H&P was reviewed, patient examined and no changes noted. Date H&P Reviewed: Aug 17, 2020 Time H&P Reviewed: : Conscious Sedation Pre-Proced Time 09:27 ASA Score 3 For ASA 3 and 4: Consider anesthesia and medical clearance. Also, for patients with a history of failed moderate sedation consider anesthesia. Airway Lungs Heart ASA score ASA 1: a normal healthy patient ASA 2: a patient with a mild systemic disease (mid diabetes, controlled hypertension, obesity ASA 3: a patient with a severe systemic disease that limits activity (angina, COPD, prior Myocardial infarction) ASA 4: a patient with an incapacitating disease that is a constant threat to life (CHF, renal failure) ASA 5: a moribund patient not expected to survive 24 hrs. (ruptured aneurysm) ASA 6: a declared brain- patient whose organs are being harvested. For emergent operations, add the letter E after the classification Mallampati Classification Grade 2 Sedation Plan Analgesia, Amnesia, Plan communicated to team members, Discussed options with patient/fam, Discussed risks with patient/fam The patient is an appropriate candidate to undergo the planned procedure, sedation, and anesthesia. The patient immediately re-assessed prior to indication. DELBERT VLAE MD FACP FAC CCDS Aug 17, 2020 09:27
[~2020-08-17 10:00] MED LIST changes: +EPTIFIBATIDE BOLUS 20 ML IV ONE; +HEParin (CATH LAB) 2,000 ML IV ONE; +HEParin 1000 UNIT/ML (10ML VIAL) FOR BOLUS ONE; +LIDOCAINE 1% INJ 20 ML 20 ML VIAL ONE; -LISI-552 PO; +LISI20TA26 PO; +METO50TA7 PO; +MIDAZOLAM 5 MG/5 ML (VERSED) VIAL ONE; +NITRO DRIP 25000 MCG/D5W 0 ML IV ONE; +NS IV 1000 ML 1,000 ML IV SCH; +NS IV 1000 ML 1,000 ML ONE; +fentaNYL INJ 100 MCG/2 ML AMP ONE
[2020-08-17] MEDS ORDERED: ASPIRIN 81 MG CHEW (CHILDREN'S ASA) ONE (10:24)
[2020-08-17] MEDS ORDERED: ACETAMINOPHEN 325 MG TABLET PO PRN (10:30)
[2020-08-17] MEDS ORDERED: PATIENT MAY USE OWN MEDS, ALL PO SCH (10:30)
[2020-08-17] MEDS ORDERED: POTASSIUM GLUCONATE 90 MG PO PRN (10:30)
[2020-08-17] MEDS ORDERED: RT-ALBUTEROL SULF 2.5 MG/3 ML PRE-MIX VIAL IH PRN (10:30)
[2020-08-17] MEDS ORDERED: NON-FORMULARY MEDICATION 1 EA EA (Semaglutide (Ozempic) 0.25 MG) SQ SCH (10:30)
[2020-08-17] MEDS: NS IV 1000 ML 1,000 ML IV SCH ×2 (11:09→20:55)
--- NOTE | 2020-08-17 11:10 | CARDIAC CATHETERIZATION ---
DATE OF SERVICE: 08/17/2020 CARDIAC CATHETERIZATION AND CORONARY INTERVENTION The patient is a 65-year-old gentleman, who is known to have had coronary artery stenting in the past and has had stent restenosis to which he has been treated with balloon angioplasty. Lately, he has had recurrence of his typical angina and the symptoms have been progressive. Repeat cardiac catheterization was carried out after having obtained informed consent for cardiac catheterization and possible ad hoc coronary intervention. DESCRIPTION OF PROCEDURE: He was brought to the cardiac catheterization laboratory in a fasting state. Right groin was prepared and draped in the usual sterile fashion. Lidocaine 1% was used for local anesthesia. Modified Seldinger technique used to advance a 5-Malawian sheath in the right femoral artery. A 5-Malawian JL4 catheter used for left coronary angiography. A 5-Malawian JR4 catheter used for right coronary angiography. A 5-Malawian pigtail catheter was used for left heart catheterization. Left ventricular angiography was not performed. This was to conserve contrast because of the patient's chronic kidney disease stage III. Subsequently, percutaneous intervention was carried out in the right coronary artery, which was exhibiting severe in-stent restenosis. PERCUTANEOUS INTERVENTION OF THE RIGHT CORONARY ARTERY: We exchanged the sheath over a wire for a 6-Malawian sheath. We gave 6000 units of intravenous heparin and double bolus of Integrilin. We used a 6-Malawian JR4 guide catheter with side holes to engage the right coronary artery. We advanced a BMW wire across the lesion. We carried out balloon angioplasty with Emerge 3.5 x 20 mm balloon at various sites within the stented segment of the right coronary. This reduced the stenosis from up to 90% to no significant residual. In the distal vessel, distal to the distal edge of the stent, there is approximately 60% stenosis. This was not intervened on. The patient tolerated the procedure well. Angioplasty equipment was removed. A total of 50 mL of contrast were used for diagnostic and interventional procedures. The sheath was sutured in place and the patient was transferred to the floor for manual sheath removal. HEMODYNAMICS: Left ventricular end-diastolic pressure following coronary angiography was 14 mmHg. There is no significant pressure gradient on pullback across the aortic valve. Ascending aortic pressure was 94/57 with a mean of 72 mmHg. CORONARY ANGIOGRAPHY: Left main coronary artery, left anterior descending artery, left circumflex artery do not exhibit any significant obstructive disease. Right coronary artery is dominant and is extensively stented. There was severe in-stent restenosis to which successful balloon angioplasty was carried out, which reduced the stenosis to no significant residual. In the distal right coronary, distal to the distal edge of the standard segment, there is approximately 60% stenosis that was not intervened on. CONCLUSIONS: 1. Coronary artery disease primarily consisting of in-stent restenosis within the right coronary that was treated successfully with balloon angioplasty. A 60% distal right coronary artery lesion distal to the standard segment, was not intervened on. The patient's stents are known to be, from proximal to distal, Alpine Xience 3.5 x 12, 3.0 x 15, 3.5 x 18, and 3.0 x 18. The left coronary system does not exhibit significant disease. 2. Mildly elevated left ventricular end-diastolic pressure. DISCUSSION AND RECOMMENDATIONS: Dual antiplatelet therapy is being continued. Previous cardiac regimen is being continued. He is being hospitalized for overnight observation. Risk factor modification has been reviewed. Job ID: [id number] DocumentID: [id number] Dictated Date: 08/17/2020 10:46:31 Supply Chain Coordinator Date: 08/17/2020 11:09:30 Dictated By: DELBERT VALE MD, MA, FACP, FACC,
[2020-08-17] MEDS ORDERED: fentaNYL INJ 100 MCG/2 ML AMP ONE (12:36)
[2020-08-17] MEDS ORDERED: ATROPINE INJ 0.4 MG/ML SDV ONE (12:36)
[2020-08-17] MEDS ORDERED: NON-FORMULARY MEDICATION 1 EA EA (Carboxymethylcellulos/Glycerin (Refresh Optive Eye Drops OU SCH (13:00)
[2020-08-17] MEDS ORDERED: PREGABALIN 150 MG (LYRICA) CAPSULE PO SCH (13:00)
[2020-08-17] MEDS: inSUlin ASPART (NovoLOG) 1 UNIT/0.01 ML (CHARGE PER UNIT) SC SCH ×2 (15:00→21:04)
[2020-08-17] MEDS: ARTIFICAL TEARS 0.4 ML UNIT DOSE (REFRESH PLUS) OU SCH ×2 (19:12→20:56)
[2020-08-17] MEDS: OMEPRAZOLE 20 MG (PriLOSEC) CAP NON-FORMULARY PO SCH (20:42)
[2020-08-17] MEDS: PREGABALIN 150 MG (LYRICA) CAPSULE PO SCH (20:43)
[2020-08-17] MEDS: [UNRECOGNIZED DRUG - REMARK] IH SCH (20:55)
[2020-08-17] MEDS: FLUTICASONE NASAL SPRAY (FLONASE) 16 GM BTL NS SCH (20:56)
[2020-08-17] MEDS ORDERED: OMEPRAZOLE 20 MG (PriLOSEC) CAP NON-FORMULARY PO SCH (21:00)
[2020-08-17] MEDS ORDERED: KETOTIFEN FUMARATE OU SCH (21:00)
[2020-08-17] MEDS ORDERED: NON-FORMULARY MEDICATION 1 EA EA (Loratadine/Pseudoephedrine (Claritin-D 24 Hour Tablet) 1 PO SCH (21:00)
[2020-08-17] MEDS ORDERED: NON-FORMULARY MEDICATION 1 EA EA (Fluticasone Propionate (Flonase Allergy Relief) 2 SPRAY) NS SCH (21:00)
[2020-08-17] MEDS ORDERED: LORATADINE (CLARITIN) 10 MG TAB PO SCH (21:00)
[2020-08-17] MEDS ORDERED: PANTOPRAZOLE 20 MG TABLET (PROTONIX) PO SCH (21:00)
[2020-08-18] VITALS: BP 100/67
[2020-08-18 04:00] VITALS: BP 99/67
[2020-08-18 04:12] LABS: BASOPHILS # (AUTO) 0.1 10^3/uL (0.0-0.1); BASOPHILS % (AUTO) 1 % (0-10); EOSINOPHILS # (AUTO) 0.3 10^3/uL (0.0-0.3); EOSINOPHILS % (AUTO) 3 % (0-10); HEMATOCRIT 43 % (40-54); HEMOGLOBIN 13.7 g/dL (13.3-17.7); LYMPHOCYTES # (AUTO) 2.6 10^3/uL (1.0-4.0); LYMPHOCYTES % (AUTO) 31 % (12-44); MEAN CORPUSCULAR HEMOGLOBIN 28 pg (25-34); MEAN CORPUSCULAR HGB CONC 32 g/dL (32-36); MEAN CORPUSCULAR VOLUME 88 fL (80-99); MONOCYTES # (AUTO) 0.9 10^3/uL (0.0-1.0); MONOCYTES % (AUTO) 10 % (0-12); NEUTROPHILS # (AUTO) 4.7 10^3/uL (1.8-7.8); NEUTROPHILS % (AUTO) 55 % (42-75); PLATELET COUNT 244 10^3/uL (130-400); WHITE BLOOD COUNT 8.6 10^3/uL (4.3-11.0)
[2020-08-18 04:30] LABS: CALCIUM 8.9 MG/DL (8.5-10.1); CREATININE SERUM 1.41 MG/DL (0.60-1.30); POTASSIUM 4.1 MMOL/L (3.6-5.0)
[2020-08-18] MEDS: NS IV 1000 ML 1,000 ML IV SCH (05:37)
[2020-08-18] MEDS: inSUlin ASPART (NovoLOG) 1 UNIT/0.01 ML (CHARGE PER UNIT) SC SCH (05:38)
[2020-08-18] MEDS: PREGABALIN 150 MG (LYRICA) CAPSULE PO SCH (07:29)
[2020-08-18] MEDS: OMEPRAZOLE 20 MG (PriLOSEC) CAP NON-FORMULARY PO SCH (07:29)
[2020-08-18 07:30] VITALS: BP 133/78
[2020-08-18] MEDS: [UNRECOGNIZED DRUG - REMARK] IH SCH (07:32)
[2020-08-18] MEDS: FLUTICASONE NASAL SPRAY (FLONASE) 16 GM BTL NS SCH (07:38)
[2020-08-18] MEDS: ARTIFICAL TEARS 0.4 ML UNIT DOSE (REFRESH PLUS) OU SCH (07:38)
--- NOTE | 2020-08-18 07:59 | Progress Note - Cardiology ---
Cardiology SOAP Progress Note Subjective: Up walking around the room Wants to go home No c/o CP or palpitations No c/o SOB Objective: I&O/Vital Signs 08/18/20 08/18/20 08/18/20 08/18/20 00:00 01:00 04:00 06:26 Temp 36.6 36.5 Pulse 59 60 62 83 Resp 15 16 B/P (MAP) 100/67 (78) 99/67 (78) Pulse Ox 93 97 O2 Delivery Room Air NIV CPAP O2 Flow Rate 2.00 08/18/20 07:30 Temp 36.7 Pulse 74 Resp 16 B/P (MAP) 133/78 (96) Pulse Ox 94 O2 Delivery Room Air 08/18/20 00:00 Intake Total 200 ml Balance 200 ml Weight (Pounds): 230 Weight (Ounces): 9.0 Weight (Calculated Kilograms): 104.230728 Side: right Groin site without hematoma: Yes Condition: DP/PT pulses palpable Bruising: mild bruising Constitutional: AAO x 3, well-developed, well-nourished Respiratory: No accessory muscle use, No respiratory distress; chest expansion is symmetric, chest is bilaterally symmetric, lungs clear to auscultation Cardiovascular: regular rate-rhythm; No JVD; S1 and S2 Gastrointestional: No tender; soft, round, audible bowel sounds Extremities: no lower extremity edema bilateral Neurologic/Psychiatric: grossly intact (moves all extremities) Skin: No rash on exposed areas, No ulcerations on exposed areas Results/Procedures: Labs Laboratory Tests 08/17/20 17:00: Glucometer 130H 08/17/20 21:02: Glucometer 97 08/18/20 04:05: White Blood Count 8.6, Red Blood Count 4.84, Hemoglobin 13.7, Hematocrit 43, Mean Corpuscular Volume 88, Mean Corpuscular Hemoglobin 28, Mean Corpuscular Hemoglobin Concent 32, Red Cell Distribution Width 15.3H, Platelet Count 244, Mean Platelet Volume 11.0, Immature Granulocyte % (Auto) 0, Neutrophils (%) (Auto) 55, Lymphocytes (%) (Auto) 31, Monocytes (%) (Auto) 10, Eosinophils (%) (Auto) 3, Basophils (%) (Auto) 1, Neutrophils # (Auto) 4.7, Lymphocytes # (Auto) 2.6, Monocytes # (Auto) 0.9, Eosinophils # (Auto) 0.3, Basophils # (Auto) 0.1, Immature Granulocyte # (Auto) 0.0, Sodium Level 139, Potassium Level 4.1, Chloride Level 106, Carbon Dioxide Level 25, Anion Gap 8, Blood Urea Nitrogen 22H, Creatinine 1.41H, Estimat Glomerular Filtration Rate 50, BUN/Creatinine Ratio 16, Glucose Level 126H, Calcium Level 8.9 Microbiology 08/17/20 MRSA Screen - Final, Complete MRSA not isolated Procedures S/P cardiac cath with successful intervention on 08-17-20 A/P: Assessment: CAD: -Card cath of 12/02/19 (following abnormal MPI of 09/16/19): Coronary artery disease primarily consisting of severe in-stent restenosis in a long-stented segment of the right coronary, to which successful balloon angioplasty was carried out with Emerge 3.5 x 15 mm balloon at several spots. In addition, there was an 80% stenosis in the distal right coronary artery, prior to its bifurcation, to which successful balloon angioplasty was carried out with the Emerge 2.0 x 15 mm balloon. The patient's stents are known to be, from proximal to distal, Alpine Xience 3.5 x 12, 3.0 x 15, 3.0 x 18 and 3.0 x 18; normal left ventricular end-diastolic pressure. - Cardiac cath of 08-17-20: in-stent restenosis within the right coronary that was treated successfully with balloon angioplasty. A 60% distal right coronary artery lesion distal to the standard segment, was not intervened on. The patient's stents are known to be, from proximal to distal, Alpine Xience 3.5 x 12, 3.0 x 15, 3.5 x 18, and 3.0 x 18. The left coronary system does not exhibit significant disease. Mildly elevated left ventricular end-diastolic pressure. S/P PPM implant on 04-13-2020 for symptomatic bradycardia and up to 4 sec pauses seen on ILR in absence of any rate-lower meds Palpitations. s/p ILR - device remains implanted at this time (Apr 27, 2020) MPI of 09/16/19 showed mild to mod basal inf ischemia, LVEF 73% (subsequent cardiac cath as noted above) TIA in Dec 2017 and October 2019 (hospitalized to [place], [place]). MRI of 01/01/18 is reported to have shown no acute intracranial process AL, treated with CPAP beginning Nov 2017 Echo of 06/10/19: LVEF 55-60%. Mild dil of aortic root (4.3 cm). 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
[2020-08-18] MEDS ORDERED: MULTIVIT W/MINERALS TAB (THERAGRAN M) PO SCH (08:00)
[2020-08-18] MEDS ORDERED: CALCIUM CARB + VIT D 600 MG (CALCARB + D) TAB PO SCH (08:00)
[2020-08-18] MEDS ORDERED: ASCORBIC ACID (VIT C) 500 MG TABLET PO SCH (08:00)
[2020-08-18] MEDS ORDERED: ASPI81TA64 PO (08:01)
--- NOTE | 2020-08-18 08:02 | Discharge Inst-Cardiology ---
Discharge Inst-Cardiac Discharge Medications New Medications: Aspirin (Children's Aspirin) 81 Mg Tab.chew 0 MG PO DAILY, #100 TAB 5 Refills Continued Medications: Albuterol Sulfate (Proair Hfa) 1 Puff Puff 2 PUFF IH Q4H PRN for SHORTNESS OF BREATH, PUFF Ascorbic Acid (Ascorbic Acid) 500 Mg Tablet 1000 MG PO DAILY, TAB Atorvastatin Calcium (Atorvastatin Calcium) 80 Mg Tablet 80 MG PO HS, TAB Budesonide/Formoterol Fumarate (Symbicort 160-4.5 Mcg Inhaler) 10.2 Gm Hfa.aer.ad 2 PUFF IH BID, INHALER Calcium Carbonate/Vitamin D3 (Calcium 500 + Vit D Caplet) 1 Each Tablet 1 TAB PO DAILY, TAB Carboxymethylcellulos/Glycerin (Refresh Optive Eye Drops) 15 Ml Drops 1 DROP OU QID, DROPS Cholecalciferol (Vitamin D3) (Vitamin D3) 25 Mcg Capsule 25 MCG PO DAILY, CAP Fenofibric Acid (Choline) (Trilipix) 135 Mg Capsule.dr 135 MG PO DAILY, CAP Fluticasone Propionate (Flonase Allergy Relief) 9.9 Ml [place].susp 2 SPRAY NS BID, #1 EACH 2 SPRAYS PER NOSTRIL DAILY X 2 DAYS THEN 1 SPRAY DAILY Ketotifen Fumarate (Zaditor) 5 Ml Drops 1 DROP OU BID, DROPS Lisinopril (Lisinopril) 20 Mg Tablet 20 MG PO DAILY, TAB Loratadine/Pseudoephedrine (Claritin-D 24 Hour Tablet) 1 Each Tab.er.24h 1 EACH PO HS, TAB Metformin HCl (Metformin HCl ER) 500 Mg Tab.er.24h 500 MG PO BID, TAB Metoprolol Succinate (Metoprolol Succinate) 50 Mg Tab.er.24h 50 MG PO DAILY, TAB Multivitamin (Multi-Vitamin Daily) 1 Each Tablet 1 TAB PO DAILY, TAB Omeprazole (Omeprazole) 20 Mg Capsule.dr 20 MG PO BID, CAP Potassium Gluconate (Potassium Gluconate) 90 Mg Tablet 90 MG PO HS PRN for MUSCLE CRAMPS, TAB Prasugrel HCl (Effient) 10 Mg Tablet 10 MG PO DAILY, TAB Pregabalin (Lyrica) 150 Mg Capsule 150 MG PO TID, CAP Semaglutide (Ozempic) 0.25 Mg/0.2 Ml Pen.injctr 0.25 MG SQ SUNDAY, VIAL Tiotropium [place] (Spiriva Respimat 2.5MCG/ACTUATION) 4 Gm Mist.inhal 2 PUFF IH DAILY, INH Discontinued Medications: Aspirin (Aspirin EC) 81 Mg Tablet. 81 MG PO DAILY, TAB New, Converted or Re-Newed RX: Transmitted to Pharmacy Patient Instructions Patient Instructions: DO NOT RESTART METFORMIN UNTIL SUNDAY, July Please schedule follow up appointment to see Dr. Serna in one week SRIDHAR BLACK Aug 18, 2020 08:02
[2020-08-18] MEDS ORDERED: meTOproloL SUCCINATE 50 MG (TOPROL XL) TAB PO SCH (09:00)
[2020-08-18] MEDS ORDERED: NON-FORMULARY MEDICATION 1 EA EA (Calcium Carbonate/Vitamin D3 (Calcium 500 + Vit D Caplet PO SCH (09:00)
[2020-08-18] MEDS ORDERED: NON-FORMULARY MEDICATION 1 EA EA (Cholecalciferol (Vitamin D3) (Vitamin D3) 25 MCG) PO SCH (09:00)
[2020-08-18] MEDS ORDERED: [UNRECOGNIZED DRUG - REMARK] IH SCH (09:00)
[2020-08-18] MEDS ORDERED: VITAMIN D3 25 MCG (1,000 UNITS) TABLET PO SCH (09:00)
[2020-08-18] MEDS ORDERED: PRASUGREL 10 MG (EFFIENT) TABLET PO SCH (09:00)
[2020-08-18] MEDS ORDERED: lisINopril 20 MG (PRINIVIL) TABLET PO SCH (09:00)
[2020-08-18] MEDS ORDERED: ASPIRIN 81 MG CHEW (CHILDREN'S ASA) PO SCH (09:00)
[2020-08-18] MEDS ORDERED: [UNRECOGNIZED DRUG - REMARK] PO SCH (09:00)
[2020-08-18 09:43] VITALS: BP 133/78
--- NOTE | 2020-08-18 16:58 | Progress Note - Cardiology ---
Cardiology SOAP Progress Note Subjective: No cp or palp or syncope or shortness of breath No groin or leg discomfort No n/v/d Objective: I&O/Vital Signs 08/18/20 08/18/20 08/18/20 08/18/20 06:26 07:30 09:00 09:43 Temp 36.7 36.7 Pulse 83 74 74 Resp 16 16 B/P (MAP) 133/78 (96) 133/78 Pulse Ox 94 94 O2 Delivery Room Air Room Air Room Air O2 Flow Rate 2.00 08/18/20 00:00 Intake Total 200 ml Balance 200 ml Weight (Pounds): 230 Weight (Ounces): 9.0 Weight (Calculated Kilograms): 104.714293 Side: right Groin site without hematoma: Yes Condition: DP/PT pulses palpable Bruising: mild bruising Constitutional: AAO x 3, well-developed, well-nourished Respiratory: No accessory muscle use, No respiratory distress; chest expansion is symmetric, chest is bilaterally symmetric, lungs clear to auscultation Cardiovascular: regular rate-rhythm; No JVD; S1 and S2 Gastrointestional: No tender; soft, round, audible bowel sounds Extremities: no lower extremity edema bilateral Neurologic/Psychiatric: grossly intact (moves all extremities) Skin: No rash on exposed areas, No ulcerations on exposed areas Results/Procedures: Labs Laboratory Tests 08/17/20 17:00: Glucometer 130H 08/17/20 21:02: Glucometer 97 08/18/20 04:05: White Blood Count 8.6, Red Blood Count 4.84, Hemoglobin 13.7, Hematocrit 43, Mean Corpuscular Volume 88, Mean Corpuscular Hemoglobin 28, Mean Corpuscular Hemoglobin Concent 32, Red Cell Distribution Width 15.3H, Platelet Count 244, Mean Platelet Volume 11.0, Immature Granulocyte % (Auto) 0, Neutrophils (%) (Auto) 55, Lymphocytes (%) (Auto) 31, Monocytes (%) (Auto) 10, Eosinophils (%) (Auto) 3, Basophils (%) (Auto) 1, Neutrophils # (Auto) 4.7, Lymphocytes # (Auto) 2.6, Monocytes # (Auto) 0.9, Eosinophils # (Auto) 0.3, Basophils # (Auto) 0.1, Immature Granulocyte # (Auto) 0.0, Sodium Level 139, Potassium Level 4.1, Chloride Level 106, Carbon Dioxide Level 25, Anion Gap 8, Blood Urea Nitrogen 22H, Creatinine 1.41H, Estimat Glomerular Filtration Rate 50, BUN/Creatinine Ratio 16, Glucose Level 126H, Calcium Level 8.9 08/18/20 09:18: Glucometer 133H Microbiology 08/17/20 MRSA Screen - Final, Complete MRSA not isolated A/P: Assessment: CAD: -Card cath of 12/02/19 (following abnormal MPI of 09/16/19): Coronary artery disease primarily consisting of severe in-stent restenosis in a long-stented segment of the right coronary, to which successful balloon angioplasty was carried out with Emerge 3.5 x 15 mm balloon at several spots. In addition, there was an 80% stenosis in the distal right coronary artery, prior to its bifurcation, to which successful balloon angioplasty was carried out with the Emerge 2.0 x 15 mm balloon. The patient's stents are known to be, from proximal to distal, Alpine Xience 3.5 x 12, 3.0 x 15, 3.0 x 18 and 3.0 x 18; normal left ventricular end-diastolic pressure. - Cardiac cath of 08-17-20: in-stent restenosis within the right coronary that was treated successfully with balloon angioplasty. A 60% distal right coronary artery lesion distal to the standard segment, was not intervened on. The patient's stents are known to be, from proximal to distal, Alpine Xience 3.5 x 12, 3.0 x 15, 3.5 x 18, and 3.0 x 18. The left coronary system does not exhibit significant disease. Mildly elevated left ventricular end-diastolic pressure. S/P PPM implant on 04-13-2020 for symptomatic bradycardia and up to 4 sec pauses seen on ILR in absence of any rate-lower meds Palpitations. s/p ILR - device remains implanted at this time (Apr 27, 2020) MPI of 09/16/19 showed mild to mod basal inf ischemia, LVEF 73% (subsequent c ardiac cath as noted above) TIA in Dec 2017 and October 2019 (hospitalized to [place], [place]). MRI of 01/01/18 is reported to have shown no acute intracranial process AL, treated with CPAP beginning Nov 2017 Echo of 06/10/19: LVEF 55-60%. Mild dil of aortic root (4.3 cm). 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) followed by Dr Lam in [place], [place] Intolerance to Plavix and Brilinta, but has been able to take Effient Quit tobacco use in Apr 2016, resumed, quit in Mar 2018 Fam h/o early CAD (father) H/O GERD and PUD - reports has had recent scope Plan: He has complex CAD and we had a long and detailed discussion regarding his CV issues, cath findings, interventions undertaken, risk factor mod, med compliance, outpt f/u, and future plans OK to discharge home today Continue current medication regimen including ASA and Effient Advise f/u in our office next week DELBERT VALE MD FACP FAC CCDS Aug 18, 2020 16:58
== END 2020-08-18 09:36 | disposition home or self-care (01) ==
LOC: CATH 10:00 → ICU 11:01 → CSD 17:51 → CATH 08-18 09:36
PROVIDERS: ATTEND Internal Medicine Cardiovascular Disease
DX: I25.10 Atherosclerotic heart disease of native coronary artery without angina pectoris (principal); E11.9 Type 2 diabetes mellitus without complications; J30.9 Allergic rhinitis, unspecified; K21.9 Gastro-esophageal reflux disease without esophagitis; J44.9 Chronic obstructive pulmonary disease, unspecified; G47.33 Obstructive sleep apnea (adult) (pediatric); E78.2 Mixed hyperlipidemia; Z79.51 Long term (current) use of inhaled steroids; Z79.82 Long term (current) use of aspirin; Z79.899 Other long term (current) drug therapy; Z88.8 Allergy status to other drugs, medicaments and biological substances; Z91.018 Allergy to other foods; Z86.2 Personal history of diseases of the blood and blood-forming organs and certain disorders involving the immune mechanism; Z87.891 Personal history of nicotine dependence; Z85.118 Personal history of other malignant neoplasm of bronchus and lung; Z95.0 Presence of cardiac pacemaker
CPT/HCPCS: 36415; 80048; 80053; 80061; 82947; 85025; 85027; 85610; 85730; 87081; 93005; 93458

== ENCOUNTER → 2020-08-31 | Outpatient (CLI) | payer OTHER ==
[~2020-08-31] MED LIST changes: +ASPI81TA64 PO; -EPTIFIBATIDE BOLUS 20 ML IV ONE; -HEParin (CATH LAB) 2,000 ML IV ONE; -HEParin 1000 UNIT/ML (10ML VIAL) FOR BOLUS ONE; -LIDOCAINE 1% INJ 20 ML 20 ML VIAL ONE; -MIDAZOLAM 5 MG/5 ML (VERSED) VIAL ONE; -NITRO DRIP 25000 MCG/D5W 0 ML IV ONE; -NS IV 1000 ML 1,000 ML IV SCH; -NS IV 1000 ML 1,000 ML ONE; -fentaNYL INJ 100 MCG/2 ML AMP ONE
--- NOTE | 2020-08-31 09:49 | Diagnostic Imaging Report ---
INDICATION: Screening for osteoporosis. COMPARISON: None FINDINGS: The bone mineral density of the hips, femoral necks and spine was measured. There are no prior studies available for comparison. The total T score for the spine is -3.0. This does indicate osteoporosis. The T score for the left femoral neck is -1.2 and for the right femoral neck -1.3. These values fall within the range of osteopenia. The total T score for the left hip is -0.5 and for the right hip -0.7. These values are within normal limits. AP Spine L1-L4: [BMD (g/cm2): 0.878] [T-Score: -3.0] [Z-Score: -3.3] [BMD Previous: NA] [BMD % Change: NA] LT Hip Neck: [BMD (g/cm2): 0.919] [T-Score: -1.2] [Z-Score: -0.6] LT Hip Total: [BMD (g/cm2):1.030] [T-Score:-0.5] [Z-Score: -0.4] [BMD Previous: NA] [BMD % Change: NA] RT Hip Neck: [BMD (g/cm2):0.898] [T-Score:-1.3] [Z-Score:-0.7] RT Hip Total: [BMD (g/cm2):1.003] [T-score:-0.7] [Z-Score:-0.6] [BMD Previous:NA] [BMD % Change:NA] *Indicates significant change from prior examination based on 95% confidence level. World Health Organization criteria for BMD interpretation classify patients as Normal (T-score at or above -1.0), Osteopenic (T-score between -1.0 and -2.5) or Osteoporotic (T-score at or below -2.5). LIMITATIONS AND MODIFICATION: None. FRACTURE RISK (FRAX SCORE): The ten year probability of (%): Major Osteoporotic Fracture: [9.4] Hip Fracture: [1.3] IMPRESSION: 1. There is osteoporosis of the spine and osteopenia of the femoral necks. 2. However, the bone mineral density of the total hips is within normal limits. 3. See below National Osteoporosis Foundation guidelines on when to potentially initiate pharmacologic therapy. Based on the National Osteoporosis Foundation Guidelines, pharmacologic treatment should be initiated in any of the following, unless clinical conditions suggest otherwise: * Any patient with prior fragility fracture of the hip or vertebrae. A spine fracture indicates 5X risk for subsequent spine fracture and 2X risk for subsequent hip fracture. * Osteoporosis (T-score <-2.5). * Postmenopausal women and men age 50 and older with low bone mass/osteopenia (T-score between -1.0 and -2.5) by DXA and 10-year major osteoporotic fracture greater than 20% or a 10-year probability of hip fracture greater than 3%. These fracture risks are supplied above in the FRAX score, if applicable. * Clinician judgement and/or patient preferences may indicate treatment for people with 10-year fracture probabilities above or below these levels. Dictated by: Dictated on workstation # [id number]
== END ==
LOC: RAD 09:00
PROVIDERS: ATTEND Nurse Practitioner Family
DX: Z13.820 Encounter for screening for osteoporosis (principal); Z00.00 Encounter for general adult medical examination without abnormal findings; M81.0 Age-related osteoporosis without current pathological fracture
CPT/HCPCS: 77080

== ENCOUNTER → 2020-09-09 | Outpatient (CLI) | payer OTHER ==
[~2020-09-09] MED LIST changes: +RT-ALBUTEROL SULF 2.5 MG/3 ML PRE-MIX VIAL INH ONE
== END ==
LOC: RT 09:59
PROVIDERS: ATTEND Nurse Practitioner Family
DX: J44.9 Chronic obstructive pulmonary disease, unspecified (principal)
CPT/HCPCS: 94060; 94726; 94729

== ENCOUNTER → 2020-10-07 | Outpatient (CLI) | payer OTHER ==
[~2020-10-07] MED LIST changes: -RT-ALBUTEROL SULF 2.5 MG/3 ML PRE-MIX VIAL INH ONE
--- NOTE | 2020-10-07 11:45 | Diagnostic Imaging Report ---
EXAMINATION: CT chest without contrast (lung screening). TECHNIQUE: Multiple contiguous axial images were obtained through the chest without the use of intravenous contrast according to lung cancer screening protocol. All CT scans use one or more of the following dose optimizing techniques: automated exposure control, MA and/or KvP adjustment based on patient size and exam type or iterative reconstruction. HISTORY: 76.5 pack year history of smoking. COMPARISON: CT chest 10/07/2019. FINDINGS: Thyroid: The thyroid is normal. Mediastinum: There are a few stable prominent mediastinal lymph nodes compared to 10/07/2019. Calcifications of the aorta and coronary vessels. Thoracic aorta is normal in caliber. Left-sided cardiac device is present. There are a few stable prominent mediastinal lymph nodes compared to 10/07/2019. Lungs and airways: There are background emphysematous changes of the lungs with scattered areas of linear atelectasis or scarring. No consolidation, pleural effusion, or pneumothorax. Minimal increased size of a left lower lobe pulmonary nodule measuring 1.1 x 1.0 cm (previously 0.9 x 0.6 cm). The previously seen additional left lower lobe pulmonary nodule has resolved. No new suspicious pulmonary lesion. There is mild bronchial wall thickening. The airways are patent. Upper abdomen: The subphrenic structures are normal. Musculoskeletal: No suspicious osseous lesion or compression fracture. IMPRESSION: 1. Slightly increased size of a left lower lobe pulmonary nodule measuring 1.1 x 1.0 cm compared to 10/07/2019. Consider further evaluation with PET/CT or CT-guided biopsy. 2. Interval resolution of a previously seen left lower lobe pulmonary nodule. 3. COPD. 4. Stable prominent mediastinal lymphadenopathy which is nonspecific. LUNG-RADS CATEGORY: 1 MODIFIER: None. Dictated by: Dictated on workstation # [id number]
== END ==
LOC: RAD 10:52
PROVIDERS: ATTEND Nurse Practitioner Family
DX: Z12.2 Encounter for screening for malignant neoplasm of respiratory organs (principal); J44.9 Chronic obstructive pulmonary disease, unspecified; R91.1 Solitary pulmonary nodule; Z87.891 Personal history of nicotine dependence
CPT/HCPCS: 71271

== ENCOUNTER → 2020-10-12 | Outpatient (CLI) | payer OTHER ==
--- NOTE | 2020-10-12 14:08 | Diagnostic Imaging Report ---
INDICATION: Left lower lobe lung mass. Patient has a history of [id number] lung carcinoma with subsequent restaging. TECHNIQUE: Serum blood glucose level at the time of injection is 112 mg/dL. Patient was administered 13.8 mCi F-18 FDG intravenously in the right antecubital location and PET imaging was performed from the top of the skull to mid thighs. Noncontrast CT was also performed for attenuation correction and anatomic correlation. COMPARISON: Comparison is made with recent CT chest screening study from 10/07/2020 and prior PET/CT study from 09/25/2014. FINDINGS: There is physiologic activity throughout the brain. Soft tissues of the neck are unremarkable. No mediastinal or hilar hypermetabolism is identified. No definite pulmonary parenchymal hypermetabolism is identified. Specifically, the nodule identified in the left lower lobe on the recent CT chest screening study does not appear to be FDG avid. Continued close follow-up is recommended. Physiologic activity throughout the GI and tracts of the abdomen and pelvis is noted. No suspicious hypermetabolism in the abdomen or pelvis is identified. IMPRESSION: Unremarkable PET/CT study. Specifically, the small nodule in the left lower lobe does not appear to show FDG avidity. Even so, close CT chest follow-up is recommended to confirm stability. Dictated by: Dictated on workstation # [id number]
== END ==
LOC: RAD 09:45
PROVIDERS: ATTEND Nurse Practitioner Family
DX: R91.8 Other nonspecific abnormal finding of lung field (principal); R91.1 Solitary pulmonary nodule; Z85.118 Personal history of other malignant neoplasm of bronchus and lung

== ENCOUNTER → 2020-11-03 | Outpatient (CLI) | payer OTHER ==
[~2020-11-03] MED LIST changes: +GADOBUTROL 10 MMOL/10 ML (GADAVIST) VIAL IV ONE
--- NOTE | 2020-11-03 13:39 | Diagnostic Imaging Report ---
EXAMINATION: Chest 1 view. HISTORY: Pacemaker. COMPARISON: 11/10/2019 FINDINGS: Left subclavian pacemaker is present. Loop recorder is present. No pleural effusion or pneumothorax. No edema or pneumonia. Heart size is normal. IMPRESSION: 1. Clear lungs. Dictated by: Dictated on workstation # [id number]
--- NOTE | 2020-11-03 16:31 | Diagnostic Imaging Report ---
PROCEDURE: MR imaging cholangiography-pancreatography. TECHNIQUE: Multiplanar imaging of the abdomen was performed on a 1.5 Sharon magnet without contrast. 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 In the interim the patient has had a negative metabolic PET CT for workup of lung nodule. The gallbladder appeared unremarkable. There is no intra or extrahepatic bile duct dilatation, no evidence for choledocholithiasis. No stricturing or filling defects within the common hepatic or common bile ducts. Areas of saccular T2 hyperintense signal within the pancreatic parenchyma contiguous with the main pancreatic duct at the level of the body neck junction, unchanged from the comparison MRI with the largest of these foci measuring 12 mm maximal. Pancreatic parenchyma in the distal body and tail showed no atrophy or volume loss. The duct at those levels appeared normal. The main pancreatic duct at the level of the suspected sidebranch IPMN is a 3 to 4 mm unchanged. No acute fluid collection or peripancreatic edema. No stranding of the adjacent fat. IMPRESSION: 1. No intra or extrahepatic bile duct dilatation, normal appearance of the gallbladder. 2. Segmental ectasia of the main pancreatic duct in communication with a side branch while 1.2 cm maximal diameter cystic nodules consistent with stable features of IPMN. 3. A formal pre and postcontrast enhanced abdominal MRI is performed on the same date and is dictated separately. Dictated by: Dictated on workstation # [id number]
--- NOTE | 2020-11-03 16:41 | Diagnostic Imaging Report ---
PROCEDURE: MR imaging abdomen with and without contrast. TECHNIQUE: Multiplanar, multisequence MR imaging of the abdomen was performed with and without contrast. INDICATION: Cystic pancreatic masses compared with study MRI abdomen with and without 12/17/2019. The patient had a metabolic PET CT negative dated 10/12/2020 also MRI sella of the abdomen dating back to 2014. Noncontrasted MRCP is a performed and dictated separately and was unchanged from comparisons. This is a mild segmental dilatation of the main pancreatic duct in communication with adjacent nonenhancing cystic foci, the main pancreatic duct measured maximal 3 to 4 mm. The adjacent nonenhancing T2 hyperintense structures within the neck and proximal body in communication with the duct or maximal 1 cm. These showed no enhancement. The pancreatic parenchyma at the tail distal to this site appeared normal as did its duct, the pancreatic head and uncinate process appeared normal. No enhancing pancreatic mass, no findings of an aggressive lesion, no findings of disease progression or change from the study of 2014 consistent with intraductal papillary mucinous neoplasm with side branch communication to the main duct. No intra or extrahepatic bile duct dilatation, no acute fluid collection or peripancreatic edema. No findings of pancreatitis. Nonfocal spleen is normal in size. No liver mass. The adrenals are negative. The gallbladder unremarkable. Kidneys are unobstructed. The aorta is nonaneurysmal. There is no ascites or fluid collection. IMPRESSION: 1. Nonenhancing T2 hyperintense cystic structures in communication with the mildly ectatic pancreatic duct consistent with side branch intraductal papillary mucinous neoplasm showed no change from multiple previous exams, continued annual followup with CT or MRI recommended. 2. No adverse development or acute-appearing abnormalities. Dictated by: Dictated on workstation # [id number]
== END ==
LOC: RAD 14:00
PROVIDERS: ATTEND Internal Medicine
DX: K86.2 Cyst of pancreas (principal); Z95.0 Presence of cardiac pacemaker
CPT/HCPCS: 71045; 74181; 74183

== ENCOUNTER → 2021-01-11 | Outpatient (CLI) | payer OTHER ==
[~2021-01-11] MED LIST changes: -GADOBUTROL 10 MMOL/10 ML (GADAVIST) VIAL IV ONE
[2021-01-11 11:06] LABS: CREATININE SERUM 1.76 MG/DL (0.60-1.30)
--- NOTE | 2021-01-11 13:58 | Diagnostic Imaging Report ---
EXAMINATION: CT chest without contrast. TECHNIQUE: Multiple contiguous axial images were obtained through the chest without the use of intravenous contrast. All CT scans use one or more of the following dose optimizing techniques: automated exposure control, MA and/or KvP adjustment based on patient size and exam type or iterative reconstruction. HISTORY: AB FINDINGS ON DIAGNOSTIC IMAGING OF LUNG COMPARISON: 10/07/2020. FINDINGS: Thyroid: The thyroid is normal. Mediastinum: Heart size is normal without significant pericardial effusion. Calcifications of the aorta and coronary vessels. Thoracic aorta is normal in caliber. There are a few prominent mediastinal and perihilar lymph nodes which are not pathologically enlarged. Lungs and airways: There are background emphysematous changes of both lungs. There are scattered areas of scarring. There is no pleural effusion or pneumothorax. There has been mildly increased size of a 1.3 x 1.3 cm left lower lobe pulmonary nodule (previously 1.1 x 1.0 cm) (series 3 image 110). Additional subcentimeter nodules in left lower lobe are unchanged along the left major fissure. The airways are normal. Upper abdomen: There is redemonstrated ectasia of the pancreatic duct which appears similar to prior exam of 10/07/2019 and 11/03/2020. Subphrenic structures are otherwise unremarkable. Musculoskeletal: Degenerative changes of the spine without suspicious osseous lesion or compression fracture. IMPRESSION: 1. Continued interval increased size of the left lower lobe pulmonary nodule compared to prior exam of 10/07/2020. Recommend further evaluation with PET/CT or CT-guided biopsy. 2. COPD. Dictated by: Dictated on workstation # [id number]
== END ==
LOC: RAD 11:45
PROVIDERS: ATTEND Nurse Practitioner Family
DX: R91.8 Other nonspecific abnormal finding of lung field (principal); J44.9 Chronic obstructive pulmonary disease, unspecified
CPT/HCPCS: 36415; 71250; 82565; 84520

== ENCOUNTER → 2021-08-05 | Outpatient (CLI) | payer OTHER ==
--- NOTE | 2021-08-05 11:15 | Diagnostic Imaging Report ---
PROCEDURE: CT chest without contrast. TECHNIQUE: Multiple contiguous axial images were obtained through the chest without the use of intravenous contrast. Auto Exposure Controls were utilized during the CT exam to meet ALARA standards for radiation dose reduction. INDICATION: Pulmonary nodule in patient with lung cancer. COMPARISON: 01/11/2021 FINDINGS: Extensive centrilobular emphysema is again identified within the lungs bilaterally. This involves into the upper lobes to greatest extent. The irregular subpleural nodule in the left lung base is stable morphologically and now measures up to 1.7 x 1.1 cm in the axial plane. This may be slightly increased when compared to previous measurement of 1.3 x 1.3 cm. There is no significant pleural or pericardial fluid. No pathologically enlarged adenopathy is identified. Coronary artery calcification is present. Upper abdominal sections reveal no evidence of focal abnormality or adverse change. IMPRESSION: Extensive background emphysema with slightly irregular subpleural nodule in the left lung base stable or slightly increased in size. This is suggestive of chronic inflammation or fibrosis. Given the continued minimal growth, additional follow-up study could be performed in 6 months to document ongoing stability. Dictated by: Dictated on workstation # [id number]
== END ==
LOC: RAD 11:15
PROVIDERS: ATTEND Internal Medicine Pulmonary Disease
DX: J43.1 Panlobular emphysema (principal); G47.33 Obstructive sleep apnea (adult) (pediatric); R91.8 Other nonspecific abnormal finding of lung field
CPT/HCPCS: 71250

== ENCOUNTER → 2022-02-09 | Outpatient (CLI) | payer OTHER ==
[~2022-02-09] MED LIST changes: +OMEP20TA56 PO; -OMEP20TA7 PO
--- NOTE | 2022-02-09 13:10 | Diagnostic Imaging Report ---
PROCEDURE: CT chest without contrast. TECHNIQUE: Multiple contiguous axial images were obtained through the chest without the use of intravenous contrast. Auto Exposure Controls were utilized during the CT exam to meet ALARA standards for radiation dose reduction. INDICATION: Lung cancer. History of right upper lobectomy. COMPARED with a CT chest 08/05/2021. FINDINGS: A left basilar nodule in the left lower lobe immediately above the top of the left diaphragmatic dome today presents as a more elongated lesion with mixed partly solid and subcentimeter with components measuring 2.2 x 1.0 cm, previously 1.7 x 1.1 cm. No new lung mass. There is right upper lobectomy with severe centrilobular emphysematous changes superimposed chronic. There is no axillary, hilar or mediastinal adenopathy. There are coronary atherosclerotic vascular calcifications, chronic. The aorta is nonaneurysmal. The upper abdomen shows nonfocal adrenals and an unremarkable appearing unopacified liver. No suspect bony lesion. IMPRESSION: 1. Left basilar nodule slightly larger and more elongated than on prior, largely sub-solid in its composition. Its slightly longer measured length may be on a technical basis owing to slice localization but continued close follow-up recommended. An additional repeat chest CT in 6 months suggested. 2. No adenopathy, no new mass, severe COPD and chronic postsurgical changes, stable. Dictated by: Dictated on workstation # [id number]
== END ==
LOC: RAD 11:45
PROVIDERS: ATTEND Nurse Practitioner Family
DX: C34.90 Malignant neoplasm of unspecified part of unspecified bronchus or lung (principal); J44.9 Chronic obstructive pulmonary disease, unspecified; Z98.890 Other specified postprocedural states; Z90.5 Acquired absence of kidney
CPT/HCPCS: 71250

== ENCOUNTER 2022-07-18 08:37 | Day surgery (SDC) | payer OTHER ==
[~2022-07-18] VITALS: Ht 180 cm; Wt 101.0 kg
[2022-07-18] VITALS (9 sets, daily range): BP systolic 91–127; BP diastolic 64–89
[~2022-07-18 08:37] MED LIST changes: +ALBU8.5H6 IH
[2022-07-18] MEDS ORDERED: LIDOCAINE 1% INJ 20 ML VIAL ONE (08:48)
[2022-07-18] MEDS ORDERED: NS IV 1000 ML 1,000 ML ONE (08:49)
[2022-07-18] MEDS ORDERED: HEParin (CATH LAB) 2,000 ML IV ONE (08:49)
[2022-07-18] MEDS ORDERED: NS IV 1000 ML 1,000 ML IV ONE (09:00)
[2022-07-18 09:22] LABS: HEMATOCRIT 45 % (40-54); HEMOGLOBIN 14.9 g/dL (13.3-17.7); MEAN CORPUSCULAR HEMOGLOBIN 29 pg (25-34); MEAN CORPUSCULAR HGB CONC 34 g/dL (32-36); MEAN CORPUSCULAR VOLUME 86 fL (80-99); MEAN PLATELET VOLUME 11.3 fL (9.0-12.2); PLATELET COUNT 299 10^3/uL (130-400); WHITE BLOOD COUNT 8.8 10^3/uL (4.3-11.0)
[2022-07-18 09:36] LABS: PROTHROMBIN TIME PATIENT 13.2 SEC (12.2-14.7)
[2022-07-18] MEDS ORDERED: FENO135C4 PO (09:36)
[2022-07-18] MEDS ORDERED: CYAN-23 PO (09:36)
[2022-07-18] MEDS ORDERED: INDO75CA10 PO (09:36)
[2022-07-18] MEDS ORDERED: LORA1TAB48 PO (09:36)
[2022-07-18] MEDS ORDERED: POTA99CA PO (09:36)
[2022-07-18] MEDS ORDERED: DENO60DI SQ (09:36)
[2022-07-18] MEDS ORDERED: ASPI-999 PO (09:36)
[2022-07-18] MEDS ORDERED: BUDE10.7 IH (09:36)
[2022-07-18 09:45] LABS: ALBUMIN 4.1 GM/DL (3.2-4.5); BILIRUBIN,TOTAL 0.5 MG/DL (0.1-1.0); CALCIUM 10.2 MG/DL (8.5-10.1); CREATININE SERUM 1.54 MG/DL (0.60-1.30); POTASSIUM 4.2 MMOL/L (3.6-5.0); TOTAL PROTEIN 7.4 GM/DL (6.4-8.2)
[2022-07-18] MEDS ORDERED: LIRA0.6P SQ (09:55)
[2022-07-18] MEDS ORDERED: HEParin 1000 UNIT/ML (10ML VIAL) FOR BOLUS ONE (11:52)
[2022-07-18] MEDS ORDERED: NITRO DRIP 25000 MCG/D5W 250 ML IV ONE (11:52)
[2022-07-18] MEDS ORDERED: fentaNYL INJ 100 MCG/2 ML AMP ONE (11:52)
[2022-07-18] MEDS ORDERED: VERAPAMIL 5 MG/2 ML (CALAN) VIAL IV ONE (11:52)
[2022-07-18] MEDS ORDERED: MIDAZOLAM 5 MG/5 ML (VERSED) VIAL ONE (11:52)
[2022-07-18] MEDS ORDERED: PATIENT MAY USE OWN MEDS, ALL PO SCH (13:00)
[2022-07-18] MEDS ORDERED: NS IV 1000 ML 1,000 ML IV SCH (13:00)
--- NOTE | 2022-07-18 13:04 | Discharge Inst-Cardiology ---
Discharge Inst-Cardiac Discharge Medications Continued Medications: Ascorbic Acid (Ascorbic Acid) 500 Mg Tablet 1000 MG PO HS, TAB Aspirin (Aspirin) 81 Mg Tab.chew 81 MG PO DAILY, TAB Atorvastatin Calcium (Atorvastatin Calcium) 80 Mg Tablet 80 MG PO HS, TAB Budesonide/Glycopyr/Formoterol (Breztri Aerosphere Inhaler) 160 Mcg-9 Mcg-4.8 Mcg/Actuation Hfa.aer.ad 2 PUFF IH BID, GM Cholecalciferol (Vitamin D3) (Vitamin D3) 25 Mcg (1000 Unit) Capsule 25 MCG PO HS, CAP Cyanocobalamin (Vitamin B-12) (Vitamin B-12) 1,000 Mcg Capsule 1000 MCG PO DAILY, CAP Denosumab (Prolia) 60 Mg/Ml Disp.syrin 60 MG SQ [id number], EA Fenofibric Acid (Choline) (Fenofibric Acid) 135 Mg Capsule.dr 135 MG PO DAILY, CAP Fluticasone Propionate (Flonase Allergy Relief) 50 Mcg/Actuation [place].susp 2 SPRAY NS BID PRN for CONGESTION, EACH Indomethacin (Indomethacin) 75 Mg Capsule.er 75 MG PO DAILY, CAP Liraglutide (Victoza 2-Oneal) 0.6 Mg/0.1 Ml (18 Mg/3 Ml) Pen.injctr 1.8 MG SQ DAILY, EA Loratadine/Pseudoephedrine (Loratadine-D 24Hr Tablet) 10 Mg-240 Mg Tab.er.24h 1 EACH PO DAILY PRN for ALLERGIES, TAB Multivitamin (Multi-Vitamin Daily) 1 Each Tablet 1 TAB PO DAILY, TAB Omeprazole (Omeprazole) 20 Mg Capsule.dr 20 MG PO BID, CAP Potassium Citrate (Potassium) 99 Mg Capsule 99 MG PO DAILY, CAP Prasugrel HCl (Effient) 10 Mg Tablet 10 MG PO DAILY, TAB Pregabalin (Lyrica) 150 Mg Capsule 150 MG PO TID, CAP Discontinued Medications: Metformin HCl (Metformin HCl ER) 500 Mg Tab.er.24h 500 MG PO BID, TAB Patient Instructions Patient Instructions: Hold METFORMIN until the morning of 07/21/22, then resume previous home dose DELBERT VALE MD [facility] Jul 18, 2022 13:04
--- NOTE | 2022-07-18 13:05 | Discharge Inst-Post CATH ---
Discharge Inst-CATH/EP Post Cardiac Cath/EP D/C Inst Follow Up/Plan F/u with Dr Serna in 1-2 weeks ACTIVITY * Go Home directly and rest. * Limit activity of the leg (or wrist if it was used) for 7 days including aerobics, swimming, jogging, bicycling, etc. * Restrict stair-climbing for 7 days if possible, if not, climb up with your n on-cath leg, then bring together on the same step. * Avoid lifting, pushing, pulling or excessive movement of the affected ex tremity for 7 days. * Customary sexual activity may be resumed after 2 days-use caution not to use a position that strains or causes pain to the affected extremity. * No driving for 24 hours. * NO SMOKING. * Avoid straining for bowel movements for 7 days. * Gentle walking on level ground is allowed. * Returning to work will depend on the type of procedure and the results. Your doctor will discuss this with you. CALL YOUR DOCTOR FOR ANY OF THE FOLLOWING: *If bleeding from the puncture site occurs- Apply gentle pressure to site with clean cloth and call your doctor or EMS. * If a knot or lump forms under the skin, increases in size, or causes pain. * If bruising appears to be worsening or moving further down your leg instead of disappearing. * Temperature above 101 F. CARE OF YOUR GROIN INCISION; * Bruising or purple discoloration of the skin near the puncture site is common. * You may shower only, no bathtub bathing for 5 days. Be careful to avoid slipping as your leg may feel stiff. * If a closure device was used on your femoral artery, please see the attached guide regarding care of the device and your leg. * Leave dressing on FOR 24 hours. CARE OF YOUR WRIST INCISION; * Bruising or purple discoloration of the skin near the puncture site is common. * You may shower. * DO NOT submerge wrist. * Leave dressing on FOR 24 hours. DELBERT SERNA MD FACP [facility] Jul 18, 2022 13:05
--- NOTE | 2022-07-18 13:13 | Cardiac Cath Report ---
CARDIAC CATHETERIZATION DATE OF PROCEDURE: 07/18/22 INDICATION: Recurrent angina equivalent HISTORY: The patient is a 67 year old male with known CAD, extensive RCA stenting, h/o stent restenosis treated last in July 2020 with balloon angioplasty, now with recurrent shortness of breath that is presumed to be an angina equivalent PROCEDURES PERFORMED: 1. Card cath PROCEDURE DESCRIPTION: After informed consent and in the fasting state, left heart catheterization was performed through the R radial artery utilizing a 6 [place] system by percutaneous approach. TIG used for LCA and left ventricular cath. Standard JR 4 was utilized for RCA. All catheters were exchanged over a guidewire. RESULTS: LV angiogram not done HEMODYNAMICS: LVEDP 8 mmHg. CORONARY ANGIOGRAPHY: Left main coronary artery: Ok Left anterior descending coronary artery: Ok Left circumflex coronary artery: Ok Right coronary artery: Dominant. Extensively stented from the prox to distal and all stents patent and without significant stent restenosis. 50-60% distal RCA lesion unchanged compared to the study of 08-17-20 IMPRESSION: 1. CAD stable. Dominant RCA with multiple stents in prox and mid and distal portions, all patent and w/o significant stent restenosis. Distal RCA de la torre 50-60% stenosis that is unchanged compared to a study of 08-17-20 2. LVEDP 8 mmHg DELBERT VALE MD FACP [facility] Jul 18, 2022 13:13
--- NOTE | 2022-07-19 13:08 | Conscious Sedation/ASA ---
07/19/22 1308: Moderate Sedation PreProcedure ASA Score Airway Lungs Heart ASA score ASA 1: a normal healthy patient ASA 2: a patient with a mild systemic disease (mid diabetes, controlled hypertension, obesity ASA 3: a patient with a severe systemic disease that limits activity (angina, COPD, prior Myocardial infarction) ASA 4: a patient with an incapacitating disease that is a constant threat to life (CHF, renal failure) ASA 5: a moribund patient not expected to survive 24 hrs. (ruptured aneurysm) ASA 6: a declared brain- patient whose organs are being harvested. For emergent operations, add the letter E after the classification Sedation Plan The patient is an appropriate candidate to undergo the planned procedure, sedation, and anesthesia. The patient immediately re-assessed prior to indication. DELBERT VALE MD [facility] 07/19/22 1341: Moderate Sedation PreProcedure ASA Score 3 Mallampati Classification Grade 2 Sedation Plan Analgesia, Amnesia, Plan communicated to team members Jul 19, 2022 13:08 DELBERT VALE MD [facility] Jul 19, 2022 13:41
== END 2022-07-18 16:05 | disposition home or self-care (01) ==
LOC: CATH 08:37 → SDC 13:22 → CATH 16:05
PROVIDERS: ATTEND Internal Medicine Cardiovascular Disease
DX: I25.10 Atherosclerotic heart disease of native coronary artery without angina pectoris (principal); G89.29 Other chronic pain; M54.2 Cervicalgia; E87.6 Hypokalemia; K21.9 Gastro-esophageal reflux disease without esophagitis; E78.2 Mixed hyperlipidemia; Z95.5 Presence of coronary angioplasty implant and graft; Z98.890 Other specified postprocedural states; Z79.899 Other long term (current) drug therapy; Z86.73 Personal history of transient ischemic attack (TIA), and cerebral infarction without residual deficits; Z85.118 Personal history of other malignant neoplasm of bronchus and lung; Z87.11 Personal history of peptic ulcer disease; Z95.0 Presence of cardiac pacemaker
CPT/HCPCS: 36415; 80053; 80061; 85027; 85610; 85730; 87081; 93005; 93458

== ENCOUNTER 2022-07-26 02:32 | Emergency (ER) | payer OTHER ==
[~2022-07-26 02:32] MED LIST changes: +BUDE10.7 IH; +CYAN-23 PO; +DENO60DI SQ; +FENO135C4 PO; +INDO75CA10 PO; +LIRA0.6P SQ; +LORA1TAB48 PO; +MONT-47 PO; -MONT10TA21 PO; +POTA99CA PO
[2022-07-26] MEDS ORDERED: NS IV 1000 ML 1,000 ML IV SCH (03:00)
[2022-07-26 03:09] LABS: BASOPHILS # (AUTO) 0.1 10^3/uL (0.0-0.1); BASOPHILS % (AUTO) 1 % (0-10); EOSINOPHILS # (AUTO) 0.2 10^3/uL (0.0-0.3); EOSINOPHILS % (AUTO) 2 % (0-10); HEMATOCRIT 44 % (40-54); HEMOGLOBIN 14.5 g/dL (13.3-17.7); LYMPHOCYTES # (AUTO) 1.9 10^3/uL (1.0-4.0); LYMPHOCYTES % (AUTO) 23 % (12-44); MEAN CORPUSCULAR HEMOGLOBIN 29 pg (25-34); MEAN CORPUSCULAR HGB CONC 33 g/dL (32-36); MEAN CORPUSCULAR VOLUME 86 fL (80-99); MEAN PLATELET VOLUME 11.6 fL (9.0-12.2); MONOCYTES % (AUTO) 12 % (0-12); NEUTROPHILS # (AUTO) 4.9 10^3/uL (1.8-7.8); NEUTROPHILS % (AUTO) 61 % (42-75); PLATELET COUNT 234 10^3/uL (130-400); WHITE BLOOD COUNT 7.9 10^3/uL (4.3-11.0)
[2022-07-26 03:17] LABS: ALBUMIN 3.9 GM/DL (3.2-4.5); CHLORIDE 112 MMOL/L (98-107); POTASSIUM 3.9 MMOL/L (3.6-5.0); SODIUM 144 MMOL/L (135-145)
[2022-07-26 03:18] LABS: CALCIUM 8.9 MG/DL (8.5-10.1)
[2022-07-26 03:19] LABS: AMYLASE 46 U/L (25-125)
[2022-07-26 03:20] LABS: GLUCOSE 132 MG/DL (70-105); TOTAL PROTEIN 6.9 GM/DL (6.4-8.2)
[2022-07-26 03:21] LABS: BILIRUBIN,TOTAL 0.3 MG/DL (0.1-1.0); CARBON DIOXIDE 20 MMOL/L (21-32)
[2022-07-26 03:23] LABS: ALKALINE PHOSPHATASE 66 U/L (40-136); CREATININE SERUM 1.62 MG/DL (0.60-1.30); GFR ESTIMATED 46
[2022-07-26 03:24] LABS: BUN/CREATININE RATIO 19
[2022-07-26 03:25] LABS: FIBRIN DEGRADATION PRODUCTS 0.32 UG/ML (0.00-0.49); INR 0.9 (0.8-1.4); PROTHROMBIN TIME PATIENT 12.5 SEC (12.2-14.7)
[2022-07-26 03:26] LABS: ALANINE AMINOTRANSFERASE 27 U/L (0-55)
[2022-07-26 03:27] LABS: CREATINE KINASE 215 U/L (30-200)
--- NOTE | 2022-07-26 03:28 | ED Cough/URI ---
General Chief Complaint: COVID19 Suspect/Confirmed Stated Complaint: COVID +/SOA/CHEST TIGHTNESS/COUGH/HEADACHE Nursing Triage Note: TO ED VIA POV AND AMBULATORY TO ROOM 9 NEGATIVE PRESSURE. PT STATES HE STARTING HAVING COUGH, SOA, SNEEZING, ACHY 1.5 DAYS AGO. 07/25 HE HAD 2 POSITIVE AT HOME COVID TESTS. DENIES CP. PT STATES HE CALLED THE [facility] TO SCHEDULE TELEHEALTH APPT AND AFTER ANSWERING A FEW OF THEIR QUESTIONS "THEY TOLD ME TO COME STRAIGHT TO THE ER". PT HAD HEART CATH LAST WITH NO NEW INTERVENTIONS, HAS 5 PREVIOUS STENTS. Source: patient History of Present Illness Date Seen by Provider: Jul 26, 2022 Time Seen by Provider: 02:50 Initial Comments PT ARRIVES VIA POV FROM HOME PT STATES HE BEGAN HAVING SYMPTOMS ON Sunday07/23/22: -"COULDN'T GET OUT OF BED" "COULDN'T SLEEP--COULDN'T STAY AWAKE" -NON-PRODUCTIVE COUGH -CLEAR RUNNY NOSE AND SNEEZING. -HEADACHE -BODY ACHES NO FEVER NO GI SYMPTOMS NO CHEST PAIN NO SHORTNESS OF BREATH--STATES HIS CHEST GETS A LITTLE TIGHT WHEN HE COUGHS. HE STATES HIS OXYGEN LEVEL ON HIS APPLE WATCH WAS 90-98% STATES HE TOOK 2 HOME COVID TESTS "OUT OF CURIOSITY" AND THEY WERE BOTH POSITIVE--TONIGHT HE IMMEDIATELY CONTACTED THE THE "[facility]" ONLINE TO SCHEDULE A TELEHEALTH APPOINTMENT, AND STATES "THE COMPUTER TOLD ME TO COME STRAIGHT TO ER" PT HAS HISTORY OF LUNG CANCER-S/P RUL LOBECTOMY AND COPD AND HAS INHALERS, HE HAS NOT USED THEM TODAY HE TOOK 1 CLARITIN D, THEN AN OTC COUGH MEDICATION AND 1 ADVIL--STATES "NONE OF IT HELPED" HE CONTINUES TO SMOKE--STATES HE USED TO SMOKE 2 PPD, NOW SMOKES 1 PACK/WEEK. HE STATES HE HAS NEVER HAD PNEUMONIA, AND DOES NOT HAVE ANY HOME OXYGEN OTHER THAN HIS CPAP MACHINE. HE ALSO HAS HTN AND DIABETES PT HAS HAD COVID VACCINE X 5, FLU VACCINE FOR THIS SEASON, AND 2 PNEUMONIA VACCINES HE HAS CAD WITH 5 STENTS HE HAD A CARDIAC CATH 07/18/[address] VALE--ALL PATENT STENTS AND NO INTERVENTION PT GOES TO [facility] LOCALLY HE SEES DR. GALVEZ AT [facility] CARDIOLOGY: DR. VALE ADDITIONALLY HE SEES MULTIPLE SPECIALISTS: DR. WHEELER--ENT; DR. CORONEL--PODIATRY; DEPUTY COUNTY CLERK AT [facility]; ENDOCRINOLOGY Allergies and Home Medications Allergies Coded Allergies: celery (Unverified Allergy, Severe, ANAPHYLAXIS, 03/29/18) clopidogrel (Verified Allergy, Mild, NAUSEA/HIVES, 03/29/18) ticagrelor (Verified Allergy, Mild, NAUSEA/HIVES, 03/29/18) Patient Home Medication List Ascorbic Acid (Ascorbic Acid) 500 Mg Tablet, 1,000 MG PO HS, (Reported) Entered as Reported by: LITO EVANS on 04/13/20 0939 Aspirin (Aspirin) 81 Mg Tab.chew, 81 MG PO DAILY, (Reported) Entered as Reported by: GILMA LEWIS on 07/18/22 09 Atorvastatin Calcium (Atorvastatin Calcium) 80 Mg Tablet, 80 MG PO HS, (Reported) Entered as Reported by: AUTUMN HARVEY on 09/12/16 1016 Budesonide/Glycopyr/Formoterol (Breztri Aerosphere Inhaler) 160 Mcg-9 Mcg-4.8 Mcg/Actuation Hfa.aer.ad, 2 PUFF IH BID, (Reported) Entered as Reported by: GILMA LEWIS on 07/18/22935 Cholecalciferol (Vitamin D3) (Vitamin D3) 25 Mcg (1000 Unit) Capsule, 25 MCG PO HS, (Reported) Entered as Reported by: JOSSELINE SULLIVAN on 11/11/19 1001 Cyanocobalamin (Vitamin B-12) (Vitamin B-12) 1,000 Mcg Capsule, 1,000 MCG PO DAILY, (Reported) Entered as Reported by: GILMA LEWIS on 07/18/22 09 Denosumab (Prolia) 60 Mg/Ml Disp.syrin, 60 MG SQ [id number], (Reported) Entered as Reported by: GILMA LEWIS on 07/18/22 09 Fenofibric Acid (Choline) (Fenofibric Acid) 135 Mg Capsule.dr, 135 MG PO DAILY, (Reported) Entered as Reported by: GILMA LEWIS on 07/18/22 09 Fluticasone Propionate (Flonase Allergy Relief) 50 Mcg/Actuation [place].susp, 2 SPRAY NS BID PRN for CONGESTION, (Reported) Entered as Reported by: LITO EVANS on 04/13/20 0939 Indomethacin (Indomethacin) 75 Mg Capsule.er, 75 MG PO DAILY, (Reported) Entered as Reported by: GILMA LEWIS on 07/18/22 0936 Liraglutide (Victoza 2-Oneal) 0.6 Mg/0.1 Ml (18 Mg/3 Ml) Pen.injctr, 1.8 MG SQ DAILY, (Reported) Entered as Reported by: GILMA LEWIS on 07/18/22 0955 Loratadine/Pseudoephedrine (Loratadine-D 24Hr Tablet) 10 Mg-240 Mg Tab.er.24h, 1 EACH PO DAILY PRN for ALLERGIES, (Reported) Entered as Reported by: GILMA LEWIS on 07/18/22 0936 Multivitamin (Multi-Vitamin Daily) 1 Each Tablet, 1 TAB PO DAILY, (Reported) Entered as Reported by: BRO GAR on 01/01/18 1107 Omeprazole (Omeprazole) 20 Mg Capsule.dr, 20 MG PO BID, (Reported) Entered as Reported by: BRO GAR on 01/01/18 1107 Potassium Citrate (Potassium) 99 Mg Capsule, 99 MG PO DAILY, (Reported) Entered as Reported by: GILMA LEWIS on 07/18/22 0936 Prasugrel HCl (Effient) 10 Mg Tablet, 10 MG PO DAILY, (Reported) Entered as Reported by: JOSSELINE SULLIVAN on 11/11/19 1001 Pregabalin (Lyrica) 150 Mg Capsule, 150 MG PO TID, (Reported) Entered as Reported by: BRO GAR on 01/01/18 1107 Review of Systems Review of Systems Constitutional: see HPI; No chills, No diaphoresis, No dizziness, No fever; malaise EENTM: see HPI, nose congestion; No ear pain, No throat pain Respiratory: see HPI, cough; No short of breath Cardiovascular: no symptoms reported Gastrointestinal: no symptoms reported Genitourinary: no symptoms reported Musculoskeletal: see HPI (BODY ACHES) Skin: no symptoms reported Psychiatric/Neurological: See HPI, Headache Hematologic/Lymphatic: No Symptoms Reported Immunological/Allergic: no symptoms reported Past Inemfvr-Xarpgv-Fhmjcj Hx Patient Social History Tobacco Use?: Yes Tobacco type used: Cigarettes Smoking Status: Current Everyday Smoker Substance use?: No Alcohol Use?: Yes Alcohol Frequency: Rarely Immunizations Up To Date Tetanus Booster (TDap): Unknown Influenza Vaccine Up-to-Date: Yes; Up-to-Date 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 Seasonal Allergies Seasonal Allergies: Yes Past Medical History Surgeries: Yes (LOBECTOMY, ARM FX, PINS REMOVED FROM LEG, LOOP RECORDER) Cardiac, Coronary Stent, Lobectomy, Orthopedic, Pacemaker Respiratory: Yes (HOME 02 2L PRN; LOBECTOMY FOR LUNG CANCER) Sleep Apnea, COPD Currently Using CPAP: Yes Currently Using BIPAP: No Cardiac: Yes (HAS PACEMAKER FOR BRADYCARDIA;LOOP RECORDER ;CAD WITH STENTS X 5) Coronary Artery Disease, High Cholesterol, Hypertension Neurological: Yes Stroke, TIA Reproductive Disorders: No Sexually Transmitted Disease: No HIV/AIDS: No Genitourinary: Yes (CHRONIC RENAL INSUFFICIENCY) Gastrointestinal: Yes Gastroesophageal Reflux, Irritable Bowel Musculoskeletal: Yes (ARM FX/ORIF; LEG FX / ORIF HARDWARE REMOVED) Chronic Back Pain, Fractures Endocrine: Yes Diabetes, Non-Insulin dep HEENT: Yes (RIGHT PAROTID GLAND SURGERY) Chronic Ear Infection Loss of Vision: Bilateral Hearing Impairment: Hard of Hearing, Bilateral Hearing Aide Cancer: Yes Lung Did You Recieve Any Treatments: Yes What Type of Treatment Did You: Chemotherapy, Surgical Intervention LARGE CELL LUNG CANCER--S/P RIGHT UPPER LOBECTOMY AND CHEMOTHERAPY 2015 Psychosocial: Yes Depression Integumentary: No Blood Disorders: No Adverse Reaction/Blood Tranf: No Family Medical History FH: emphysema 19 FATHER FH: lung cancer 19 FATHER FH: ovarian cancer G8 SISTER Neuroblastoma G8 SISTER Quadrupal cardiac bipass 19 FATHER Heart Disease, Cancer SOCIAL HISTORY: -SMOKED 2 PPD, NOW SMOKES 1 PACK/WEEK -ETOH--RARE USE -DENIES DRUG USE PAST SURGICAL HISTORY: -CARDIAC CATHS WITH STENTS X 5 -CARDIAC CATH 07/18/[address] VALE: IMPRESSION: 1. CAD stable. Dominant RCA with multiple stents in prox and mid and distal portions, all patent and w/o significant stent restenosis. Distal RCA de [place] torre 50-60% stenosis that is unchanged compared to a study of 08-17-20 2. LVEDP 8 mmHg -CARDIAC CATH 08/17/[address] VALE: CONCLUSIONS: 1. Coronary artery disease primarily consisting of in-stent restenosis within the right coronary that was treated successfully with balloon angioplasty. A 60% distal right coronary artery lesion distal to the standard segment, was not intervened on. The patient's stents are known to be, from proximal to distal, Alpine Xience 3.5 x 12, 3.0 x 15, 3.5 x 18, and 3.0 x 18. The left coronary system does not exhibit significant disease. 2. Mildly elevated left ventricular end-diastolic pressure. -LOOP RECORDER -PACEMAKER PLACED 04/13/2020 FOR BRADYCARDIA -RIGHT UPPER LOBECTOMY 2015 FOR LARGE CELL LUNG CANCER -PORT PLACEMENT AND LATER REMOVAL 2016 -RIGHT PAROTID GLAND SURGERY -ARM FX/ORIF -RIGHT TIBIAL PLATEAU FX / ORIF 10/2010 WITH LATER HARDWARE REMOVAL Physical Exam Vital Signs - First Documented Capillary Refill : Less Than 3 Seconds Height: 5'11.00" Weight: 230lbs. 9.0oz. 104.288659ga; 31.17 BMI Method:Stated General Appearance: WD/WN, no apparent distress, other (DOES NOT APPEAR ILL OR TO BE IN ANY DISCOMFORT OR DISTRESS. TALKS AT LENGTH IN FULL SENTENCES. SINGLE VERY BRIEF COUGH X 1 DURING EXAM. ) HEENT: PERRL/EOMI, TMs normal, pharynx normal, other (MISSING TEETH; MILD NASAL CONGESTION. 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, no motor/sensory deficits, alert, normal mood/affect, oriented x 3 Skin: normal color, warm/dry Focused Exam Lactate Level 07/26/22 02:49: Lactic Acid Level 1.63 Lactic Acid Level Laboratory Tests Test 07/26/22 02:49 Lactic Acid Level 1.63 MMOL/L (0.50-2.00) Progress/Results/Core Measures Suspected Sepsis SIRS Temperature: Pulse: 72 Respiratory Rate: 16 Laboratory Tests 07/26/22 02:49: White Blood Count 7.9 Blood Pressure 137 /88 Mean: 104 07/26/22 02:49: Lactic Acid Level 1.63 Laboratory Tests 07/26/22 02:49: Creatinine 1.62H, INR Comment 0.9, Platelet Count 234, Total Bilirubin 0.3 Results/Orders Lab Results Laboratory Tests Test 07/26/22 02:49 07/26/22 02:56 07/26/22 03:30 Range/Units White Blood Count 7.9 4.3-11.0 10^3/uL Red Blood Count 5.06 4.30-5.52 10^6/uL Hemoglobin 14.5 13.3-17.7 g/dL Hematocrit 44 40-54 % Mean Corpuscular Volume 86 80-99 fL Mean Corpuscular Hemoglobin 29 25-34 pg Mean Corpuscular Hemoglobin Concent 33 32-36 g/dL Red Cell Distribution Width 15.2 H 10.0-14.5 % Platelet Count 234 130-400 10^3/uL Mean Platelet Volume 11.6 9.0-12.2 fL Immature Granulocyte % (Auto) 0 % Neutrophils (%) (Auto) 61 42-75 % Lymphocytes (%) (Auto) 23 12-44 % Monocytes (%) (Auto) 12 0-12 % Eosinophils (%) (Auto) 2 0-10 % Basophils (%) (Auto) 1 0-10 % Neutrophils # (Auto) 4.9 1.8-7.8 10^3/uL Lymphocytes # (Auto) 1.9 1.0-4.0 10^3/uL Monocytes # (Auto) 1.0 0.0-1.0 10^3/uL Eosinophils # (Auto) 0.2 0.0-0.3 10^3/uL Basophils # (Auto) 0.1 0.0-0.1 10^3/uL Immature Granulocyte # (Auto) 0.0 0.0-0.1 10^3/uL Erythrocyte Sedimentation Rate 11 0-30 MM/HR Prothrombin Time 12.5 12.2-14.7 SEC INR Comment 0.9 0.8-1.4 Activated Partial Thromboplast Time 27 24-35 SEC D-Dimer 0.32 0.00-0.49 UG/ML Sodium Level 144 135-145 MMOL/L Potassium Level 3.9 3.6-5.0 MMOL/L Chloride Level 112 H 98-107 MMOL/L Carbon Dioxide Level 20 L 21-32 MMOL/L Anion Gap 12 5-14 MMOL/L Blood Urea Nitrogen 31 H 7-18 MG/DL Creatinine 1.62 H 0.60-1.30 MG/DL Estimat Glomerular Filtration Rate 46 BUN/Creatinine Ratio 19 Glucose Level 132 H 70-105 MG/DL Lactic Acid Level 1.63 0.50-2.00 MMOL/L Calcium Level 8.9 8.5-10.1 MG/DL Corrected Calcium 9.0 8.5-10.1 MG/DL Magnesium Level 2.0 1.6-2.4 MG/DL Total Bilirubin 0.3 0.1-1.0 MG/DL Aspartate Amino Transf (AST/SGOT) 27 5-34 U/L Alanine Aminotransferase (ALT/SGPT) 27 0-55 U/L Alkaline Phosphatase 66 40-136 U/L Total Creatine Kinase 215 H 30-200 U/L Creatine Kinase MB 2.9 <6.6 NG/ML Myoglobin 82.4 10.0-92.0 NG/ML Troponin I < 0.028 <0.028 NG/ML C-Reactive Protein High Sensitivity 2.08 H 0.00-0.50 MG/DL B-Type Natriuretic Peptide 14.5 <100.0 PG/ML Total Protein 6.9 6.4-8.2 GM/DL Albumin 3.9 3.2-4.5 GM/DL Amylase Level 46 25-125 U/L Influenza Type A (RT-PCR) Not Detected Not Detecte Influenza Type B (RT-PCR) Not Detected Not Detecte SARS-CoV-2 RNA (RT-PCR) Detected H Not Detecte My Orders Orders - SHARRON COLE DO Ed Iv/Invasive Line Start (07/26/22 02:46) Ekg Tracing (07/26/22 02:46) O2 (07/26/22 02:46) Monitor-Rhythm Ecg Trace Only (07/26/22 02:46) Cbc With Automated Diff (07/26/22 02:46) Comprehensive Metabolic Panel (07/26/22 02:46) Fibrin Degradation Products (07/26/22 02:46) Hs C Reactive Protein (07/26/22 02:46) Erythrocyte Sedimentation Rate (07/26/22 02:46) Blood Culture (07/26/22 02:46) Sputum Culture (07/26/22 02:46) Covid 19 Inhouse Test (07/26/22 02:46) Sputum Culture (07/26/22 02:46) Urinalysis (07/26/22 02:46) Urine Culture (07/26/22 02:46) Protime With Inr (07/26/22 02:46) Partial Thromboplastin Time (07/26/22 02:46) Chest 1 View, Ap/Pa Only (07/26/22 02:46) Ed Iv/Invasive Line Start (07/26/22 02:46) Ed Iv/Invasive Line Start (07/26/22 02:46) Vital Signs Adult Sepsis Patie Q15M (07/26/22 02:46) O2 (07/26/22 02:46) Remove Rings In Anticipation O (07/26/22 02:46) Lactic Acid Analyzer (07/26/22 02:46) Amylase (07/26/22 02:46) Bnp [place] (07/26/22 02:46) Creatine Kinase (07/26/22 02:46) Creatine Kinase Mb (07/26/22 02:46) Magnesium (07/26/22 02:46) Troponin I [place] (07/26/22 02:46) Myoglobin Serum (07/26/22 02:46) Influenza A And B By Pcr (07/26/22 02:46) Isolation Central Supply Req (07/26/22 02:46) Ed Iv/Invasive Line Start (07/26/22 02:46) Ns Iv 1000 Ml (Sodium Chloride 0.9%) (07/26/22 03:00) Vital Signs/I&O 07/26/22 07/26/22 02:44 02:44 Temp 36.8 Pulse 72 Resp 16 B/P (MAP) 137/88 (104) Pulse Ox 97 O2 Delivery Room Air Room Air Capillary Refill : Less Than 3 Seconds Blood Pressure Mean: 104 Progress Note : Progress Note PLACED IN ISOLATION ROOM PPE WORN COVID AND FLU TESTING DONE LAB AND CXR ORDERED PT HAS NORMAL VITALS, AND IS AFEBRILE. O2 SATS 97-98% ON ROOM AIR. NO DYSPNEA NO HYPOXIA NO FEVER DURING ER STAY ECG Initial ECG Impression Date: Jul 26, 2022 Initial ECG Impression Time: 02:53 Initial ECG Rate: 70 Comment ATRIAL SENSED VENTRICULAR PACING. INTERPRETED BY ME Departure Impression Primary Impression: COVID-19 virus infection Disposition: 01 HOME, SELF-CARE Condition: Stable Departure-Patient Inst. Decision time for Depature: 05:12 Referrals: [facility] (PCP) Primary Care Physician JAYE RIGGS (Family) Primary Care Physician Patient Instructions: COVID-19 ED, Preventing the Spread of an Infectious Disease Add. Discharge Instructions: TAKE PAXLOVID INSTRUCTED YOU MAY TAKE PLAIN CLARITIN AND YOU MAY USE FLONASE NASAL SPRAY FOR NASAL CONGESTION AND DRAINAGE YOU MAY TAKE TYLENOL 1 GRAM AND IBUPROFEN 800 MG 4 TIMES A DAY NEEDED FOR PAIN OR FEVER LOTS OF CLEAR LIQUIDS QUARANTINE FOR 10 DAYS FROM ONSET OF SYMPTOMS RETURN TO ER IF YOU HAVE DIFFICULTY BREATHING OR ANY WORSENING OF SYMPTOMS All discharge instructions reviewed with patient and/or family. Voiced understanding. Scripts Promethazine/Dextromethorphan (Promethazine-Dm Syrup) 6.25 Mg-15 Mg/5 Ml Syrup 5 ML PO Q4H for Cough, #200 ML Prov: SHARRON COLE DO 07/26/22 Benzonatate (TESSALON PERLES) 100 Mg Capsule 200 MG PO TID, #50 CAP Prov: SHARRON COLE DO 07/26/22 SHARRON COLE DO Jul 26, 2022 03:28
[2022-07-26 03:34] LABS: CREATINE KINASE MB 2.9 NG/ML (<6.6)
[2022-07-26 03:37] LABS: BILIRUBIN,URINE NEGATIVE (NEGATIVE); CLARITY,URINE CLEAR; COLOR,URINE YELLOW; GLUCOSE, URINE (UA) NEGATIVE (NEGATIVE); KETONES,URINE NEGATIVE (NEGATIVE); LEUKOCYTE ESTERASE ,URINE NEGATIVE (NEGATIVE); NITRITE,URINE NEGATIVE (NEGATIVE); PROTEIN,URINE NEGATIVE (NEGATIVE)
[2022-07-26 03:46] LABS: ERYTHROCYTE SEDIMENTATION RATE 11 MM/HR (0-30)
[2022-07-26] MEDS ORDERED: D-ME473S11 PO (05:19)
[2022-07-26] MEDS ORDERED: BENZ100C18 PO (05:19)
[2022-07-26 05:29] VITALS: BP 119/85
[2022-07-26] MEDS ORDERED: RX-NIRMATRELVIR/RITONAVIR (PAXLOVID) #30 TABS PO SCH (05:30)
[2022-07-26 05:32] LABS: BACTERIA,URINE NEGATIVE /HPF
--- NOTE | 2022-07-26 08:36 | Diagnostic Imaging Report ---
INDICATION: Dyspnea, Covid positive Frontal chest obtained at 0355 a.m. and compared to 11/03/2020. There is cardiomegaly. Pacemaker is unchanged. There are chronic appearing increased interstitial markings in the lung bases. There is no pneumothorax or pleural fluid. IMPRESSION: Chronic appearing increased basilar markings. Cardiomegaly with no acute pulmonary infiltrate. Dictated by: Dictated on workstation # [id number]
== END 2022-07-26 05:29 | disposition home or self-care (01) ==
LOC: EDUNIT# 02:32 → ER 02:35
DX: U07.1 COVID-19 (principal); R05.9 Cough, unspecified; R51.9 Headache, unspecified; R09.81 Nasal congestion; G47.30 Sleep apnea, unspecified; F17.210 Nicotine dependence, cigarettes, uncomplicated; Z99.89 Dependence on other enabling machines and devices
CPT/HCPCS: 36415; 71045; 80053; 81000; 82150; 82550; 82553; 83605; 83735; 83874; 83880; 84484; 85025; 85379; 85610; 85652; 85730; 86141; 87040; 87077; 87088; 87636; 93005; 93041

== ENCOUNTER → 2022-08-07 | Outpatient (CLI) | payer OTHER ==
[~2022-08-07] MED LIST changes: +BENZ100C18 PO; +D-ME473S11 PO; +SULF1TAB38 PO
== END ==
LOC: CARD 12:28
PROVIDERS: ATTEND Nurse Practitioner Family
DX: I51.89 Other ill-defined heart diseases (principal)
CPT/HCPCS: 93306

== ENCOUNTER → 2022-10-03 | Outpatient (CLI) | payer OTHER ==
[~2022-10-03] MED LIST changes: -D-ME473S11 PO; +PROM473S15 PO
--- NOTE | 2022-10-03 15:26 | Diagnostic Imaging Report ---
PROCEDURE: CT chest without contrast. TECHNIQUE: Multiple contiguous axial images were obtained through the chest without the use of intravenous contrast. Auto Exposure Controls were utilized during the CT exam to meet ALARA standards for radiation dose reduction. INDICATION: Solitary pulmonary nodule. COMPARISONS: 02/09/2022, 01/11/2021, and 10/07/2019 FINDINGS: Pacer device is present overlying the left chest. Loop recorder is also present within the anterior left chest. A few calcified lymph nodes are present. Postsurgical changes of a right upper lobectomy are again noted. Borderline aneurysmal dilatation of the ascending thoracic aorta measuring right at 4.0 cm. Tortuosity of the descending thoracic aorta. The heart is within normal limits in size. No pericardial effusion. No pleural effusion. Stable mild elevation of the right hemidiaphragm. Advanced background emphysematous changes, predominantly centrilobular in nature. No pneumothorax. Tiny pleural-based nodularity along the left major fissure is unchanged since 2020, and benign. A 3.7 x 1.4 cm bilobed solid and groundglass left lower lobe pulmonary nodule is again identified abutting the left hemidiaphragm. This continues to increase in size from prior imaging. Previously this measured approximately 2.2 x 1.0 cm. 0.6 cm lingular pulmonary nodules are unchanged since 2020, and benign. No new right-sided pulmonary nodule. The trachea remains patent. The visualized upper abdomen is unremarkable. Mild scattered osseous degenerative changes without acute osseous abnormality. IMPRESSION: Continued interval increase of previously noted groundglass and solid inferior left lower lobe pulmonary nodule abutting the dome of the diaphragm. Given change in appearance, further evaluation is recommended as this is concerning for potential neoplasm. CT-guided biopsy is recommended. Given location, biopsy may be technically difficult or impossible. Advanced background emphysematous changes with stable postsurgical changes involving the right upper lung. Borderline aneurysmal dilatation of the ascending thoracic aorta. Additional stable findings, as above. Dictated by: Dictated on workstation # [id number]
== END ==
LOC: RAD 12:22
PROVIDERS: ATTEND Hospitalist
DX: J43.9 Emphysema, unspecified (principal); R91.1 Solitary pulmonary nodule
CPT/HCPCS: 71250

== ENCOUNTER → 2022-11-21 | Outpatient (CLI) | payer OTHER ==
--- NOTE | 2022-11-21 17:04 | Diagnostic Imaging Report ---
INDICATION: Age-related screening for osteoporosis. COMPARISON: 08/31/2020. FINDINGS: AP Spine L1-L4: [BMD (g/cm2): 1.013] [T-Score: -1.9] [Z-Score: -2.1] [BMD Previous: 0.878] [BMD % Change: 15.4*] LT Hip Neck: [BMD (g/cm2): 0.868] [T-Score: -1.6] [Z-Score: -0.9] LT Hip Total: [BMD (g/cm2):1.078] [T-Score:-0.2] [Z-Score: 0.0] [BMD Previous: 1.030] [BMD % Change: 4.7*] RT Hip Neck: [BMD (g/cm2):0.878] [T-Score:-1.5] [Z-Score:-0.8] RT Hip Total: [BMD (g/cm2):1.072] [T-score:-0.2] [Z-Score:0.0] [BMD Previous:1.003] [BMD % Change:6.9*] *Indicates significant change from prior examination based on 95% confidence level. World Health Organization criteria for BMD interpretation classify patients as Normal (T-score at or above -1.0), Osteopenic (T-score between -1.0 and -2.5) or Osteoporotic (T-score at or below -2.5). LIMITATIONS AND MODIFICATION: None. FRACTURE RISK (FRAX SCORE): The ten year probability of (%): Major Osteoporotic Fracture: [10.1] Hip Fracture: [1.8] IMPRESSION: 1. Osteopenia (Low bone mass). 2. There has been a statistically significant increase in BMD since prior exam, detailed above. 3. See below National Osteoporosis Foundation guidelines on when to potentially initiate pharmacologic therapy. Based on the National Osteoporosis Foundation Guidelines, pharmacologic treatment should be initiated in any of the following, unless clinical conditions suggest otherwise: * Any patient with prior fragility fracture of the hip or vertebrae. A spine fracture indicates 5X risk for subsequent spine fracture and 2X risk for subsequent hip fracture. * Osteoporosis (T-score <-2.5). * Postmenopausal women and men age 50 and older with low bone mass/osteopenia (T-score between -1.0 and -2.5) by DXA and 10-year major osteoporotic fracture greater than 20% or a 10-year probability of hip fracture greater than 3%. These fracture risks are supplied above in the FRAX score, if applicable. * Clinician judgement and/or patient preferences may indicate treatment for people with 10-year fracture probabilities above or below these levels. Dictated by: Dictated on workstation # [id number]
== END ==
LOC: RAD 14:30
PROVIDERS: ATTEND Internal Medicine Endocrinology, Diabetes & Metabolism
DX: M85.80 Other specified disorders of bone density and structure, unspecified site (principal)
CPT/HCPCS: 77080